=== PATIENT | female | born 1950 | race Caucasian/White ===

== ENCOUNTER 2019-08-08 11:36 | Observation (INO) | payer MEDICARE, OTHER ==
[~2019-08-08] VITALS: Ht 149.9 cm; Wt 47.2 kg
[~2019-08-08 11:36] MED LIST: ASPIR 8181 MG PO; ATORVASTATIN CA80 MG PO; AUGMENTIN 875-1 EACH PO; CHILDREN'S ASPI81 M1 PO; CLINDAMYCIN HC300 MG PO; CLOPIDOGREL75 MG PO; LISINOPRIL5 MG PO; METOPROLOL SUCC25 MG PO; METOPROLOL SUCC50 MG PO; METRONIDAZOLE500 MG PO; PEPTO-BISM262 MG/15 PO; PRAVASTATIN SOD20 MG PO; PROMETHAZINE HC25 M1 PO; SIMETHICONE80 MG PO; SPIRONOLACTONE25 MG PO; VITAMIN D5000 UNIT PO; ZOFRAN ODT4 MG PO
[2019-08-08] MEDS ORDERED: MULTIVITAMINS1 EAC7 PO (12:25)
--- NOTE | 2019-08-08 19:31 | NUR ---
PT ADMIT COMPLETED AT THIS TIME, STARTED IV FLUIDS LR @200MLS/HR. PT GIVEN 2 WARM BLANKETS.
--- NOTE | 2019-08-08 21:10 | NUR ---
ENTERED ROOM TO START COATES AND FIX BEEPING IV PUMP. PT HAD DIARRHEA ACCIDENT, ASSISTED TO CLEAN HER UP AND GET NEW GOWN. PT STATES SHE HAS AN ALLERGY TO IODINE. GOT HER IN BED AND GOT CALLED AWAY ADVISED HER WE WOULD RETURN IN A FEW MINUTES TO FINISH AFTER GETTING CHLORAPREP. CALL LIGHT IS CLOSE.
--- NOTE | 2019-08-08 21:39 | NUR ---
VITALS AND I&OS DONE AND CHARTED. BEDSIDE TABLE AND CALL LIGHT IN REACH. FRESH ICE WATER GIVEN. PT NEEDS NOTHING MORE AT THIS TIME.
--- NOTE | 2019-08-08 21:45 | NUR ---
this rn placed goins - chloraprep used - allergy to iodine. immediate return of alison urine 300ml. pt tollerated well. alert and oriented, forgetfull. tells me same story about family and situations in the same 10 min. pleasant. but unaware of repeat story. occasionally reminds herself. iv fusing at 200 ml an hr until next bag. 02 3l nc - chronic at night. pt reports no food all day in ER - soup provided in rm 119 by this rn. call light in reach - bed alarm on.
--- NOTE | 2019-08-08 23:33 | NUR ---
PT USED THE CALL LIGHT AND ASKED IF SOMEONE COULD HELP HER. I WENT INTO SEE WHAT I COULD DO FOR HER. SHE HAD A LARGE LIQUID BM IN HER BED. I HELPED HER TO THE BSC. DID A COMPLETE BED CHANGE. GOT THE LAUNDRY OUT AND PUT A NEW BAG IN . CLEANED PT WITH WARM WIPES, GOT HER NEW SOCKS AND A NEW GOWN. HELPED HER GET THOSE ON. HELPED HER WITH AN ATTENDS. TWO WARM BLANKETS GIVEN. FLOOR UNDER HER BSC WAS RED WIPED. BEDSIDE TABLE AND CALL LIGHT IN REACH. I WAS HEADING TO THE DOOR SHE SAID "I NEED TO USE THE TOILET AGAIN" I GOT THE BSC SHE HAD NO TIME TO GET TO THE BATHROOM. HELPED HER GET TO THE BSC. REPLACED THE CHUCKS ON THE BED. SHE WILL CALL WHEN SHE IS READY. CALL LIGHT IN REACH.
--- NOTE | 2019-08-08 23:47 | NUR ---
HELPED PT BACK TO BED. BEDSIDE TABLE AND CALL LIGHT IN REACH.
--- NOTE | 2019-08-09 00:30 | NUR ---
ALLERGY CONFIRMED - RED BAND PLACED ON LEFT ARM,
--- NOTE | 2019-08-09 04:38 | NUR ---
pt amb to br on own urgently to have explosive bm. educated to use call light. bed alarm placed due to risk for fall, goins, iv, etc. pt agrees to call. attends changed, bed bath provided, linen changed, i/o and vitals completed at this time. pt only complaint at this time is loose stools. continues to have smokers cough and o2 mask at 5l on.
--- NOTE | 2019-08-09 04:41 | NUR ---
pt w/ urgent loose stool incont. iv fluids @ 125 , chronic 02 titrate due to smoking with smokers cough. slight pleasant confusion, bed alarm on. goins with close watch of i/o for jeovany.
--- NOTE | 2019-08-09 04:46 | NUR ---
WITH THE HELP OF ALEKSANDAR ALEGRIA WE GOT PT CLEANED UP FROM A LIQUID BM. CHANGED GOWN, SOCKS AND ATTEND. RED WIPED ALL OF THE BATHROOM FLOOR. GARBAGES EMPTIED. VITALS AND I&OS DONE AND CHARTED. BED ALARM ON. BEDSIDE TABLE AND CALL LIGHT IN REACH.
--- NOTE | 2019-08-09 05:16 | NUR ---
HELPED PT TO THE BSC AND BACK TO BED. BEDSIDE TABLE AND CALL LIGHT IN REACH. PT NEEDS NOTHING MORE AT THIS TIME.
--- NOTE | 2019-08-09 07:30 | NUR ---
Spoke with Cielo. She states she lives in [place] in a 1 story home without steps. Lives alone and son lives next door. Pt does not use DME. States she is 69, but does not feel it. Wanting to go home today. Encouraged to stay until they determine what is causing her to have n/d.
--- NOTE | 2019-08-09 08:44 | NUR ---
PT UP IN THE CHAIR THIS AM FOR BKF. ATE 1/2 OF HER TOTAL MEAL THEN UP TO THE BATHROOM AMBULATES WELL JUST NEEDS HELP WITH IV POLE AND O2 LINE. PT STATES "I FEEL SO MUCH BETTER TODAY" "I WANT TO GO HOME" EXPLAINED THAT HER LABS ARE BETTER, BUT SHE MAY NEED TO STAY A FEW DAYS TILL HER KIDNEY FUNCTION INPROVES MORE. PT IS OKAY WITH THAT.
[2019-08-09] MEDS ORDERED: ZOFRAN4 MG PO (09:57)
--- NOTE | 2019-08-09 10:14 | NUR ---
MED REC COMPLETE
--- NOTE | 2019-08-09 10:35 | NUR ---
PT SHOWERED AND VOIDED THEN WAS DRESSED IN STREET PERSONAL CLOTHING DUE TO PT IS DISCHARGED TO HOME. DAUGHTER CAME TO PICK PT UP. PT DID NOT WANT O2 TO TRAVEL HOME WITH. IV SITE D'CD. DAUGHTER DROVE PT TO HER HOME.
== END 2019-08-09 10:25 | disposition home or self-care (01) ==
LOC: ED 11:36 → MS 11:38
PROVIDERS: ADMIT Student in an Organized Health Care Education/Training Program
DX: N17.9 Acute kidney failure, unspecified (principal); A08.39 Other viral enteritis; I10 Essential (primary) hypertension; F17.210 Nicotine dependence, cigarettes, uncomplicated; Z88.2 Allergy status to sulfonamides; Z88.5 Allergy status to narcotic agent; Z88.8 Allergy status to other drugs, medicaments and biological substances; Z88.1 Allergy status to other antibiotic agents; Z79.899 Other long term (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 therapy
CPT/HCPCS: 36415; 51702; 71045; 80048; 80053; 81001; 83690; 83735; 85025; 94760; 96361; 96374; 96376; 99285-25; 99406; C9803; G0378; J2405; J7030; J7121; U0002

== ENCOUNTER 2019-10-16 19:45 | Inpatient (IN) | payer MEDICARE, OTHER ==
[~2019-10-16] VITALS: Ht 149.9 cm; Wt 47.8 kg
--- OUTSIDE RECORDS SUMMARY | ~2019-10-16 | XMS | Encounter Summary ---
Demographics + + + | Address | [address] | | | [place] [address] | + + + | Home Phone | | + + + | Preferred Language | Unknown | + + + | Marital Status | | + + + | Nondenominational Affiliation | MET | + + + | Race | White | + + + | Ethnic Group | Not or | + + + Author + + + | Author | [facility] | + + + | Organization | [facility] | + + + | Address | Unknown | + + + | Phone | Unavailable | + + + Support + + +---------+ + | Name | Relationship | Address | Phone | + + +---------+ + | Augusto Bell | ECON | Unknown | | + + +---------+ + | Thaddeus Gerard | ECON | Unknown | | + + +---------+ + | Eric Leung | ECON | Unknown | | + + +---------+ + Care Team Providers + +------+ + | Care Youth Pastor Name | Role | Phone | + +------+ + | Mary Vazquez PA-C | PCP | | + +------+ + Encounter Details +--------+ + + + + | Date | Type | Department | Care Team | Description | +--------+ + + + + | 10/30/ | Telephone | Neurosurgery at | Paramjit Huber MD | | | 2017 | | [facility] [address] | [address] | | | | | [address] [facility] | [place], [place] | | | | | [facility], | [address] | | | | | Building | [phone] | | | | | floor [place], [place] | | | | | | [address] | | | | | | [phone] | | | +--------+ + + + + Social History + + + +--------+------+ | Tobacco Use | Types | Packs/Day | Years | Date | | | | | Used | | + + + +--------+------+ | Current Every Day | Cigarettes | 1 | 46 | | | Smoker | | | | | + + + +--------+------+ + +---+---+---+ | Smokeless Tobacco: | | | | | Never Used | | | | + +---+---+---+ + + | Comments: quit for 1 year | + + + + +---------+ + | Alcohol Use | Drinks/Week | oz/Week | Comments | + + +---------+ + | No | 0 Standard drinks | 0.0 | | | | or equivalent | | | + + +---------+ + + + + | Sex Assigned at | Date Recorded | | | | + + + | Not on file | | + + + documented as of this encounter Functional Status + + + + | Functional Status | Response | Date of Assessment | + + + + | Because of a physical, mental, or emotional | No | 12/05/2017 | | condition, do you have serious difficulty | | | | doing errands alone such as visiting the | | | | doctor? | | | + + + + + + + + | Cognitive Status | Response | Date of Assessment | + + + + | Because of a physical, mental, or emotional | No | 12/05/2017 | | condition, do you have serious difficulty | | | | concentrating, remembering, or making | | | | decisions? (5 years old or older) | | | + + + + documented as of this encounter Miscellaneous Notes Telephone Encounter - Valente Gerardo MA - 12/20/2017 4:50 PM PDTCalled patient to relay Me marty Manning PA-C message: Can you please advise patient to reach out to [facility] which is an [facility] team apart of the infec tious disease department who is helping to manage her outpatient IV antibiotics. This team m ay be able to help set up infusions while she is here in town during her scheduled follow up s. Gave [facility]AT number to patient to call ([phone]). Patient greatly appreciated the call an d will give [facility]AT a call in the morning. Electronically signed by Valente Gerardo MA at 018 4:53 PM PDTTelephone Encounter - Marni Manning PA-C - 12/20/2017 12:27 PM PDTCan you please advise patient to reach out to [facility] which is an [facility] team apart of the infectiou s disease department who is helping to manage her outpatient IV antibiotics. This team may b e able to help set up infusions while she is here in town during her scheduled follow ups. E lectronically signed by Marni Manning PA-C at 12/20/2017 12:28 PM PDTTelephone Encount er - Chioma Aggarwal MA - 12/20/2017 9:03 AM PDTOutgoing call to patient. Spoke with Delmar malik to clarify what she is asking - she states she was put on an injectable antibiotic afte r surgery with Dr. Mayorga / Dr. Huber. Patient states this is an injection and is curious if she can have the injection done here at [facility] instead of in [facility]. She has several appts at [facility] on 12/23 and won't be able to go to the [facility] oni t day. Please advise. Looking at the chart it I believe the patient gets an infusion through a PIC line, not an i njection. elephone Encounter - Perico Hall - 12/20/2017 8:14 AM Renita Maricarmen Bell is s/p CRANIOP LASTY WITH CUSTOM IMPLANT - Right 10/23/2015 Is on an IV everyday at the hospital in [facility] and has questions about her injections for when she sees Cecile. Routing encounter to nursing team to be evaluated and triage Please advise. Date Patient Last Seen: Last Appointment in [facility] was on 11/28/15 at 3:42 pm with Nsg Fellow. Future Appointment Date in Clinic: Next Appointment in [facility] is on 12/23/17 at 12:15 pm with Nsg Skull Base Pa STEFAN Gaines documented in this encoun ter Plan of Treatment Not on filedocumented as of this encounter Visit Diagnoses Not on filedocumented in this encounter"
--- OUTSIDE RECORDS SUMMARY | ~2019-10-16 | XMS | Encounter Summary ---
Demographics + + + | Address | [address] | | | [place] [address] | + + + | Home Phone | | + + + | Preferred Language | Unknown | + + + | Marital Status | | + + + | Mandaen Affiliation | MET | + + + | Race | White | + + + | Ethnic Group | Not or | + + + Author + + + | Author | [facility] | + + + | Organization | [facility] | + + + | Address | [...] Team Providers + +------+ + | Care Proposal Consultant Name | Role | Phone | + +------+ + | Anil Baker DO | PCP | | + +------+ + Encounter Details +--------+ + + + + | Date | Type | Department | Care Team | Description | +--------+ + + + + | 05/23/ | Hospital | Registration [facility]OV | | | | 2015 | Encounter | [address] | | | | | | [place], | | | | | | [place] [address] | | | +--------+ + + + + Social History + + + +--------+ + | Tobacco Use | Types | Packs/Day | Years | Date | | | | | Used | | + + + +--------+ + | Former Smoker | Cigarettes | 1.5 | 39 | Quit: 10/18/2007 | + + + +--------+ + + + +---------+ + | Alcohol Use | Drinks/Week | oz/Week | Comments | + + +---------+ + | No | | | | + + +---------+ + + + + | Sex Assigned at | Date Recorded | | | | + + + | Not on file | | + + + documented as of this encounter Plan of Treatment Not on filedocumented as of this encounter Visit Diagnoses Not on filedocumented in this encounter"
--- OUTSIDE RECORDS SUMMARY | ~2019-10-16 | XMS | Encounter Summary ---
Demographics + + + | Address | [address] | | | [place] [address] | + + + | Home Phone | | + + + | Preferred Language | Unknown | + + + | Marital Status | | + + + | Catholic Affiliation | MET | + + + | Race | White | + + + | Ethnic Group | Not or | + + + Author + + + | Author | [facility] | + + + | Organization | [facility] | + + + | Address | [...] Team Providers + +------+ + | Care Tree Topper Name | Role | Phone | + +------+ + | Anil Baker DO | PCP | | + +------+ + Reason for Visit + + + | Reason | Comments | + + + | Postoperative visit | | + + + AUTH/CERT +--------+--------+ + + + + | Status | Reason | Specialty | Diagnoses / | Referred By | Referred To | | | | | Procedures | Contact | Contact | +--------+--------+ + + + + | Closed | | | | | Kpv 10[address] | | | | | | | Nsrg/Neur/Ot | | | | | | | [address] | | | | | | | [address] | | | | | | | [id number] | | | | | | | [facility] | | | | | | | [place], | | | | | | | [place] [address] | | | | | | | Phone: | | | | | | | [phone] | +--------+--------+ + + + + Encounter Details +--------+---------+ + + + | Date | Type | Department | Care Team | Description | +--------+---------+ + + + | 05/13/ | Office | Neurosurgery at | Paramjit uHber MD | Communicating | | 2009 | Visit | [facility] [address] | [address] | Hydrocephalus | | | | [address] [place] [facility] | [place], [place] | (Primary Dx) | | | | Health and [facility]aling, | [address] | | | | | [facility] | [phone] | | | | | floor [place], [place] | | | | | | [address] | | | | | | [phone] | | | +--------+---------+ + + + Social History + + [...] + + documented as of this encounter Progress Notes Cari Martinez PA - 05/13/2008 1:45 PM PDTThis bisi lady was originally treated for SAH for clipping of aneurysm, she did eventually require placement of AUDIOMETRIC TECHNICIAN shunt. She was seen in the ED for ZULUAGA and the shunt was tapped, she was sent home on abx. The CSF eventually grew ou t MRSA. Pt has ZULUAGA, otherwise feels well. We will admit patient for another tap, likely removal of shunt. 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
--- OUTSIDE RECORDS SUMMARY | ~2019-10-16 | XMS | Encounter Summary ---
Demographics + + + | Address | [address] | | | [place] [address] | + + + | Home Phone | | + + + | Preferred Language | Unknown | + + + | Marital Status | | + + + | Bahai Affiliation | Unknown | + + + | Race | White | + + + | Ethnic Group | Not or | + + + Author + + + | Author | [facility] | | | and [place] | + + + | Organization | [facility] | | | and [place] | + + + | Address | Unknown | + + + | Phone | Unavailable | + + + Support + + +---------+ + | Name | Relationship | Address | Phone | + + +---------+ + | Linda Gerard | ECON | Unknown | | + + +---------+ + | Augusto Bell | ECON | Unknown | | + + +---------+ + Care Team Providers + +------+ + | Care Sewage Plant Operator Name | Role | Phone | + +------+ + | Lance Pandya DO | PCP | | + +------+ + Reason for Visit +--------+--------+ + | Reason | Onset | Comments | | | Date | | +--------+--------+ + | Other | 03/27/ | nocturnal ox | | | 2016 | | +--------+--------+ + Encounter Details +--------+ + + + + | Date | Type | Department | Care Team | Description | +--------+ + + + + | 03/27/ | Telephone | [facility] | Chana Luu, | Noe ([facility]) | | 2015 | | CARDIOLOGY [address] | MD [address] | | | | | [place], | [place] | | | | | [place] [address] | [address] | | | | | [phone] | | | +--------+ + + + + Social History + +-------+ +--------+------+ | Tobacco Use | Types | Packs/Day | Years | Date | | | | | Used | | + +-------+ +--------+------+ | Current Every Day | | 1.5 | 49 | | | Smoker | | | | | + +-------+ +--------+------+ + + + | Sex Assigned at | Date Recorded | | | | + + + | Not on file | | + + + documented as of this encounter Functional Status + + + + | Functional Status | Response | Date of Assessment | + + + + | Are you deaf or do you have serious | No | 12/29/2014 | | difficulty hearing? | | | + + + + | Are you blind or do you have serious | No | 12/29/2014 | | difficulty seeing, even when wearing | | | | glasses? | | | + + + + | Do you have serious difficulty walking or | No | 12/29/2014 | | climbing stairs? (5 years old or older) | | | + + + + | Do you have difficulty dressing or bathing? | No | 12/29/2014 | | (5 years old or older) | | | + + + + | Because of a physical, mental, or emotional | No | 12/29/2014 | | condition, do you have difficulty doing | | | | errands alone such as visiting a doctor's | | | | office or shopping? [15 years old or | | | | older)] | | | + + + + + + + + | Cognitive Status | Response | Date of Assessment | + + + + | Because of a physical, mental, or emotional | No | 12/29/2014 | | condition, do you have serious difficulty | | | | concentrating, remembering, or making | | | | decisions? (5 years old or older) | | | + + + + documented as of this encounter Miscellaneous Notes Telephone Encounter - Lucille Costa, RN - 03/27/2015 9:31 AM PSTReceived a call from Nika Pepper in [place] today to let us know that they went in to visit patient and did a nocturn al oxymetry on her. They report that she desated below 80 for a significant amount of time a nd most likely will need nocturnal oxygen. They report that prior to the oxymetry the patien t asked if it was to qualify her for oxygen and advised them that she would refuse to use ox ygen. They will send us a copy of the nocturnal oxymetry for our records but since we did n ot order the test they were advised to follow up with patient's PCP, Dr Pandya for the orde r for oxygen and to speak with the patient about the need for it. .......................... .................Lucille Costa RN on 03/27/15 at 9:35 documented in this encounter Plan of Treatment Not on filedocumented as of this encounter Visit Diagnoses Not on filedocumented in this encounter"
--- OUTSIDE RECORDS SUMMARY | ~2019-10-16 | XMS | Encounter Summary ---
Demographics + + + | Address | [address] | | | [place] [address] | + + + | Home Phone | | + + + | Preferred Language | Unknown | + + + | Marital Status | | + + + | Taoism Affiliation | MET | + + + | Race | White | + + + | Ethnic Group | Not or | + + + Author + + + | Author | [facility] | + + + | Organization | [facility] | + + + | Address [...] Team Providers + +------+ + | Care Certified Pharmacy Tech Name | Role | Phone | + +------+ + | Mary Vazquez PA-C | PCP | | + +------+ + Reason for Visit Office Visit - E/M Services (Routine) +--------+--------+ + + + + | Status | Reason | Specialty | Diagnoses / | Referred By | Referred To | | | | | Procedures | Contact | Contact | +--------+--------+ + + + + | Closed | | Infectious | Diagnoses | Non-[facility] | Maria Isabel, | | | | Disease | | Epic Dept | Saskia Santos MD | | | | | Osteomyeliti | | [address] | | | | | s, | | [address] | | | | | unspecified | | [address] [place], | | | | | | | [place] | | | | | | | [address] | | | | | | | Phone: | | | | | | | [phone] | | | | | | | Fax: | | | | | | | [phone] | +--------+--------+ + + + + Encounter Details +--------+---------+ + + + | Date | Type | Department | Care Team | Description | +--------+---------+ + + + | 07/28/ | Office | Infectious | Marianna Chandler, | Acute osteomyelitis | | 2019 | Visit | [facility] at [facility] | [address] | of cranium (HCC) | | | | [address] | [address] | (Primary Dx); MSSA | | | | [facility] | [place], [place] | (methicillin | | | | [address], 3rd floor | [phone] | susceptible | | | | [place], [place] | [phone] | Staphylococcus | | | | [address] | | aureus) infection; | | | | [phone] | | Infection due to | | | | | | Staphylococcus | | | | | | epidermidis | +--------+---------+ + + + Social History + + + +--------+------+ | Tobacco Use | Types | Packs/Day | Years | Date | | | | | Used | | + + + +--------+------+ | Current Every Day | Cigarettes | 1 | 50 | | | Smoker | | | | | + + + +--------+------+ + +---+---+---+ | Smokeless Tobacco: | | | | | Never Used | | | | + +---+---+---+ + + | Comments: | + + + + +---------+ + [...] + + documented as of this encounter Last Filed Vital Signs + + + + + | Vital Sign | Reading | Time Taken | Comments | + + + + + | Blood Pressure | 126/69 | 07/28/2018 11:58 AM | | | | | PDT | | + + + + + | Pulse | 77 | 07/28/2018 11:58 AM | | | | | PDT | | + + + + + | Temperature | 36.6 C (97.8 F) | 07/28/2018 11:58 AM | | | | | PDT | | + + + + + | Respiratory Rate | - | - | | + + + + + | Oxygen Saturation | 98% | 07/28/2018 11:58 AM | | | | | PDT | | + + + + + | Inhaled Oxygen | - | - | | | Concentration | | | | + + + + + | Weight | 49.4 kg (108 lb 14.4 | 07/28/2018 11:58 AM | per pt previous apt | | | oz) | PDT | | + + + + + | Height | 149.9 cm (4' 11") | 07/28/2018 11:58 AM | | | | | PDT | | + + + + + | Body Mass Index | 22 | 07/28/2018 11:58 AM | | | | | PDT | | + + + + + documented in this encounter Functional Status + + + + | Functional Status | Response | Date of Assessment | + + + + | Because of a physical, mental, or emotional | No | 07/11/2018 | | condition, do you have serious difficulty | | | | doing errands alone such as visiting the | | | | doctor? | | | + + + + + + + + | Cognitive Status | Response | Date of Assessment | + + + + | Because of a physical, mental, or emotional | No | 07/11/2018 | | condition, do you have serious difficulty | | | | concentrating, remembering, or making | | | | decisions? (5 years old or older) | | | + + + + documented as of this encounter Progress Notes Marianna Chandler MD - 07/28/2018 12:00 PM PDTFormatting of this note might be different fro m the original. INFECTIOUS DISEASES CLINIC: Follow-up Visit Reason for follow-up visit: cranial osteomyelitis, cranial epidural abscess, infected shunt status post removal of the [employer]AL[employer]OVEMENT CONS[employer]ANT shunt with MSSA s/p ceftriaxone 2 g IV every 24 hours for 6 weeks for cranial osteomyelitis starting 12/05/2017 until 01/16/2018 Interval History: This is a 68-year-old female who is following up with infectious disease with regards to he r infection above. She had a subarachnoid hemorrhage status post right pteronial craniotomy for clipping in 2007. This was then complicated by hydrocephalus for which she underwent a QUALITY IMPROVEMENT CONSULTANT shunt mony cement on March 2008 and a synthetic cranioplasty for eroded hardware on October 2015. 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 At that time she was noted to have purulent drainage from the cranioplasty site bryan ng with wound dehiscence. She underwent removal of the cranioplasty and [employer]AL[employer] IM[employer]OVEMENT CONS[employer]ANT shunt as well. Al l the hardware was removed at that time. She was treated with ceftriaxone 2 g IV every 24 ho urs for 6 weeks for cranial osteomyelitis starting 12/05/2017 until 01/16/2018. Prior to sto pping antibiotics a CT of the head was negative for abscess and therefore the antibiotics we re stopped as scheduled on 01/16/2018. She underwent an elective repeat synthetic cranioplasty with neurosurgery on 05/09/2018 with rotational scalp flap with the ENT doctors. She was discharged home the following day [facility] er he presented on 05/14/2018 with enlarging right frontal fluid collection where the skin ov erlying the fluid collection was erythematous and warmer. A CT had showed large extra-axial fluid collection that was hyperdense to CSF. ENT drained the collection, clean the flap and revised/reinforced the wound with nylon sutures. Post surgery, the patient's wound was looki ng good and the erythema had decreased as per documentation. The cultures from the aspirate were negative and so were the blood cultures on 05/14/2018. It did not look like she was plac ed on antibiotics during this admission. She was followed up by neurosurgery on 06/05/2018 and at that time her incision was healing well and did not have any issues with this. There was a small scab over the portion where pr evious wound dehiscence was. The sutures were removed on that day. A month later, on 07/09/2018 the patient called the neurosurgical clinic notifying them that there was a skin defect around the surgical site on the scalp and there was exposed craniop lasty. She was then advised to present to [facility] ED. The patient had denied any fever, chills and other systemic infectious symptoms however upon ED evaluation noted some erythema around the surrounding area but no purulence. The patient was still smoking at that time. Has had a chronic cough which is not worse other than her baseline. The ENT team was consulted and noted to have a 2 X 3 cm area of exposed synthetic craniopla sty with surrounding erythema, alopecia and increased skin vascularity. There was no purulen ce, induration or fluid collection. Her white count was 7.78. As per ENT they would coordina te with the neurosurgeons for removal/explant of the cranioplasty. Neurosurgical evaluation notable for no signs or symptoms of infection, a conservative appr oach with explant followed by delayed cranioplasty plus flap. They may require plastics assi stance. On 07/11/2018 the patient underwent explant of the right Synthes custom cranioplasty and wou nd revision. The synthetic flap was explanted and 1 swab of the epidural space was sent to [facility]. No pathology was sent from the OR. Fungal and AFB cultures also sent. That one bacterial culture grew Staphylococcus epidermidis which was MRSE, fungal and AFB c ultures are negative so far She was discharged from the hospital when cultures are still negative and the Staphylococcu s epidermidis grew on day 5. She was then coordinated to be seen in the infectious disease c linanna today. She is feeling well and not having any issues. She denies any fever, chills, nausea or vom iting. She has been off antibiotics ever since her surgery in 11 July and not had any infect ious issues. There she was seen by the neurosurgeon and pictures were taken which do not lo ok infectious at all. Prior to surgery on 07/11/2018 she was doing well again did not have any infectious symptom s. currently has no pain or tenderness around the surgical site ROS: 14 point review of symptoms conducted. All negative except pertinent positives in sub jective portion of the note above. -Medication Allergies: Allergies Allergen Reactions Acworth Tar Hives Betadine [Povidone-Iodine (With Soap)] Rash Cipro [Ciprofloxacin] Nausea and Vomiting Codeine Hcl Nausea and Vomiting Sulfa (Sulfonamide Antibiotics) Erythema Current Medications: Current Outpatient Medications on File Prior to Visit Medication Sig Dispense Refill acetaminophen 325 mg oral tablet Take 1-2 tablets by mouth every four hours as needed. Indications: Pain (Patient not taking: Reported on 07/28/2018) atorvastatin 80 mg oral tablet Take 80 mg by mouth once daily. ipratropium-albuterol 0.5 mg-3 mg(2.5 mg base)/3 mL inhalation solution for nebulizatio n Inhale 3 mL two times daily. metoprolol succinate 50 mg oral tablet extended release 24 hr Take 50 mg by mouth once daily. nicotine 21 mg/24 hr transdermal patch 24 hour Apply 1 patch to skin once daily. 30 pat ch 1 polyethylene glycol 17 gram oral powder in packet Mix 1 packet and take orally three ti mes daily as needed (1st line - for no BM for 2 days). Indications: constipation spironolactone 25 mg oral tablet Take 25 mg by mouth once daily. No current facility-administered medications on file prior to visit. Antibiotic History: none at this time Physical Exam: VS: Ht 1.499 m (4' 11"), Wt 49.4 kg (108 lb 14.4 oz), BP 126/69, Pulse 77, Temperature 36.6 C (97.8 F), Temperature source Oral, SpO2 98%, BMI 22 kg/(m^2). Facility age limit for growth percentiles is 18 years.Body mass index is 22 kg/m. Gen: Appropriate. NAD HEENT: Conj/Sclera white and quiet. PERRLA. EOMI. OP: Clear. No exudate or lesions noted. Tongue midline. Neck: supple. No lymphadenopathy Respiratory: CTA. No wheezes, rales, rhonci. Cardiovascular: RRR. No murmurs/rubs/gallops. Gastrointestinal/Abd: soft, NT/ND. No HSM Musc/Skel/Extrem: no clubbing/cyanosis/edema Skin: no rash or lesions, reviewed picture of the scalp from neurosurgical evaluation. Pre vious images also reviewed in the office on. Neuro/Psych: Alert and Oriented. Normal affect. Normal mentation. Labs: 07/10/2018 ESR 11, CRP less than 2.9, , Creatinine 0.88, WBC 7.2. CULTURE, WOUND DEEP W/ ANAEROBE [[id number]] (Abnormal) LAB Collected: 07/11/18 1231 Lab Status: Final result Specimen: Swab from Brain Updated: 07/16/18 1258 CULTURE RESULT LAB Staphylococcus epidermidisAbnormal Ref Range: Narrative: Culture Report: Rare Staphylococcus epidermidis No anaerobic organisms isolated Gram Stain: No squamous epithelial cells No polymorphonuclear cells No organisms seen Susceptibility Staphylococcus epidermidis SUSCEPTIBILITY-GRANT Cefazolin R Clindamycin S Erythromycin S Oxacillin R Tetracycline S Trimethoprim/Sulfa S Vancomycin S Impression/Plan: 1) staph epidermidis on swab from recent removal of synthetic cranial flap - 07/11/18 2) history of cranial osteomyelitis, epidural abscess, infected [employer]AL[employer]ANT shunt with MSSA status p ost removal of the synthetic flap, and [employer] shunt as well - 11/2017. Status post completion o f 6 weeks of IV ceftriaxone on 01/16/2018. 3) hx of subarachnoid hemorrhage status post right pteronial craniotomy for clipping in Sep. This was then complicated by hydrocephalus for which she underwent a QUALITY IMPROVEMENT CONSULTANT shunt mony cement on March 2008 and a synthetic cranioplasty for eroded hardware on October 2015. During my evaluation with the patient, I do not see any signs of infection based on symptom s from the patient or chart review prior to her most recent flap removal. Along with that prior to removal of her flap, ESR and CRP were within normal limits. She d id not have any signs of infection including redness, purulent drainage, pain or tenderness, fever, chills, sweating as well. During the surgery the culture was taken from the epidural swab which is above the syntheti c cranium from my discussion with neurosurgical team, in the wound dehiscence was open for at least 2 weeks prior to culture collection. At this time not sure if the staph epidermidis really is a pathogen or a contaminant and gi gia that there was was 1 culture collected we are at a disadvantage of really proving one ov er the other. Having taken a look at her symptoms pre-and post surgery and holding of antibiotics current ly and not behaving infectious is reassuring. I would err on the side of considering this is a contaminant and proceed to further surgica l plans as delineated by neurosurgery and ENT. Recs: 1) No antibiotics for treatment of the Streptococcus epidermidis as there is a high suspic ion that this may be a contaminant Given the above reason. Would recommend to proceed with surgical plans as delineated by neurosurgical and ENT teams . Would recommend vancomycin along with cefazolin as perioperative prophylaxis. Would recommend to use a new flap altogether. Recommendations were conveyed to the neurosurgical Team after discussing the case with vijay fields. The pt is in agreement with the plan. I spent 40 minutes with this patient of which greater than 50% was spent counseling the pa tient regarding the differential diagnosis, diagnostic options, treatment options, and plan going forward. Marianna Chandler MD INFECTIOUS DISEASES AT [facility] [address] [place] [address] Mailcode: [address] [place] [address] [phone] signed by Marianna Chandler MD at 07/28/2018 2:33 PM Anita cintron in this encounter Plan of Treatment Not on filedocumented as of this encounter Visit Diagnoses + + | Diagnosis | + + | Acute osteomyelitis of cranium (HCC) - Primary | + + | MSSA (methicillin susceptible Staphylococcus aureus) infection Methicillin | | susceptible Staphylococcus aureus in conditions classified elsewhere and of unspecified | | site | + + | Infection due to Staphylococcus epidermidis Unspecified staphylococcus infection in | | conditions classified elsewhere and of unspecified site | + + documented in this encounter
--- OUTSIDE RECORDS SUMMARY | ~2019-10-16 | XMS | Encounter Summary ---
Demographics + + + | Address | [address] | | | [place] [address] | + + + | Home Phone | | + + + | Preferred Language | Unknown | + + + | Marital Status | | + + + | Sikh Affiliation | MET | + + + | Race | White | + + + | Ethnic Group | Not or | + + + Author + + + | Author | [facility] | + + + | Organization | [facility] | + + + | Address | Unknown | + + + | Phone | Unavailable | + + + Support + + +---------+ + | Name | Relationship | Address | Phone | + + +---------+ + | Augusto Bell | ECON | Unknown | | + + +---------+ + | Thdadeus Gerard | ECON | Unknown | | + + +---------+ + | Eric Leung | ECON | Unknown | | + + +---------+ + Care Team Providers + +------+ + | Care Boat Hand Name | Role | Phone | + +------+ + | No Pcp Per Patient | PCP | Unavailable | + +------+ + Encounter Details +--------+ + + + + | Date | Type | Department | Care Team | Description | +--------+ + + + + | 01/16/ | Telephone | Neurosurgery at | Paramjit Huber MD | | | 2017 | | [facility] [address] | [address] | | | | | [address] [facility] | [place], [place] | | | | | [facility], | [address] | | | | | [facility] | [phone] | | | | | floor [place], [place] | | | | | | [address] | | | | | | [phone] | | | +--------+ + + + + Social History + + + +--------+ + | Tobacco Use | Types | Packs/Day | Years | Date | | | | | Used | | + + + +--------+ + | Former Smoker | Cigarettes | 1 | [birth year] | Quit: 12/03/2017 | + + + +--------+ + + +---+---+---+ | Smokeless Tobacco: | | [...] this encounter Miscellaneous Notes Telephone Encounter - Nettie Jaramillo PA - 01/17/2018 8:52 AM PSTDocumentation on sepa rate encounter re: plans. Closing current encounter. elephone Encounter - Perico Hall - 01/16/2018 9:21 A Tom Hairston called to check on what's next for her. Let her know that the plan is that Cecile is to review the imaging from 01/09 today, and that we will be getting back to her after th is is done. documented in this encounter Plan of Treatment Not on filedocumented as of this encounter Visit Diagnoses Not on filedocumented in this encounter"
--- OUTSIDE RECORDS SUMMARY | ~2019-10-16 | XMS | Encounter Summary ---
Demographics + + + | Address | [address] | | | [place] [address] | + + + | Home Phone | | + + + | Preferred Language | Unknown | + + + | Marital Status | | + + + | Latter Day Affiliation | Unknown | + + + | Race | White | + + + | Ethnic Group | Not or | + + + Author + + + | Author | [facility] | | | and [place] | + + + | Organization | [facility] | | | and [place] | + + + | Address | Unknown | + + + | Phone | Unavailable | + + + Support + + +---------+ + | Name | Relationship | Address | Phone | + + +---------+ + | Linda Gerard | ECON | Unknown | | + + +---------+ + | Augusto Ray | ECON | Unknown | | + + +---------+ + Care Team Providers + +------+ + | Care Care Asst Name | Role | Phone | + +------+ + PCP | Unavailable | + +------+ + Encounter Details +--------+ + + + + | Date | Type | Department | Care Team | Description | +--------+ + + + + | 07/01/ | Hospital | [facility] | | | | 1991 | Encounter | [facility] | | | | | | CENTER [address] | | | | | | [place] | | | | | | [address] | | | | | | [phone] | | | +--------+ + + + + Social History + +-------+ +--------+------+ | Tobacco Use | Types | Packs/Day | Years | Date | | | | | Used | | + +-------+ +--------+------+ | Never Assessed | | | | | + +-------+ [...]
--- OUTSIDE RECORDS SUMMARY | ~2019-10-16 | XMS | Clinical Summary ---
Demographics + + + | Address | [address] | | | [place] [address] | + + + | Home Phone | | + + + | Preferred Language | Unknown | + + + | Marital Status | | + + + | Latter-Day Affiliation | Unknown | + + + | Race | White | + + + | Ethnic Group | Not or | + + + Author + + + | Author | [facility] | | | and [place] | + + + | Organization | [facility] | | [...] Team Providers + +------+ + | Care Appraisal Manager Name | Role | Phone | + +------+ + | Lance Pandya DO | PCP | | + +------+ + Allergies + + + + + + | Active Allergy | Reactions | Severity | Noted | Comments | | | | | Date | | + + + + + + | Ciprofloxacin | Nausea And Vomiting, | Medium | 12/28/19 | Ended up in the | | | Other (See | | 15 | ER/Pain | | | Comments) | | | | + + + + + + | Codeine | Nausea And Vomiting, | High | 12/28/19 | | | | Hives, Rash | | 15 | | + + + + + + | Slayton | Hives | High | 06/07/19 | | | | | | 15 | | + + + + + + | Slayton Tar | Hives | | 12/28/19 | | | | | | 15 | | + + + + + + | Povidone Iodine | Hives, Other (See | High | 05/29/19 | | | | Comments) | | 15 | | + + + + + + | Sulfa Antibiotics | Diarrhea, Nausea And | Low | 12/28/19 | Other reaction(s): | | | Vomiting | | 15 | Erythema SULFA | | | | | | DRUGS | + + + + + + Medications + + + +---------+------+------+-------+ | Medication | Sig | Dispensed | Refills | Star | End | Statu | | | | | | t | Date | s | | | | | | Date | | | + + + +---------+------+------+-------+ | aspirin 81 mg EC | Take 1 tablet by | 150 | 2 | 07/2 | | Activ | | tablet | mouth Daily. | tablet | | 8/20 | | e | | | | | | 16 | | | + + + +---------+------+------+-------+ | | Take 3 mLs by | | 0 | | | Activ | | albuterol-ipratropiu | nebulization Every 4 | | | | | e | | m (DUONEB) 2.5-0.5 | hours. | | | | | | | mg/3 mL SOLN | | | | | | | + + + +---------+------+------+-------+ | atorvaSTATin | Take 2 tablets by | 180 | 3 | 06/ | | Activ | | (LIPITOR) 20 mg | mouth Daily. | tablet | | 9/20 | | e | | tablet | | | | 17 | | | + + + +---------+------+------+-------+ | acetaminophen | Take 1-2 tablets by | | 0 | 09/0 | | Activ | | (TYLENOL) 325 mg | mouth every four | | | 3/20 | | e | | tablet | hours as needed. | | | 16 | | | | | Indications: Pain | | | | | | + + + +---------+------+------+-------+ | bisacodyl | Unwrap and insert 1 | | 0 | 10/ | | Activ | | (DULCOLAX) 10 mg | suppository rectally | | | 11/10 | | e | | suppository | once daily as | | | 18 | | | | | needed (2nd line for | | | | | | | | no BM in past 2 | | | | | | | | days or if not | | | | | | | | response to MIRALAX | | | | | | | | or if unable to | | | | | | | | tolerate oral). | | | | | | + + + +---------+------+------+-------+ | clopidogrel | Take 1 tablet by | | 0 | 10 | | Activ | | (PLAVIX) 75 mg | mouth once daily. Do | | | 11/10 | | e | | tablet | not restart plavix | | | 18 | | | | | until 2 weeks after | | | | | | | | surgery-12/20 | | | | | | + + + +---------+------+------+-------+ | fentaNYL, PF, 50 | | | 0 | 07/1 | | Activ | | mcg/mL injection | | | | 820 | | e | | | | | | 17 | | | + + + +---------+------+------+-------+ | lisinopril | Take 5 mg by mouth | | 0 | 05/2 | | Activ | | (PRINIVIL, ZESTRIL) | once daily. | | | 320 | | e | | 5 mg tablet | | | | 18 | | | + + + +---------+------+------+-------+ | metoprolol | Take 50 mg by mouth | | 0 | 09/1 | | Activ | | succinate | once daily. | | | 320 | | e | | (TOPROL-XL) 50 mg 24 | | | | 18 | | | | hr tablet | | | | | | | + + + +---------+------+------+-------+ | midazolam (VERSED) | | | 0 | 07/1 | | Activ | | 1 mg/mL SOLN | | | | 8/20 | | e | | | | | | 17 | | | + + + +---------+------+------+-------+ | nicotine | Apply 1 patch to | | 0 | 09/0 | | Activ | | (NICODERM) 21 mg/24 | skin once daily. | | | 3/20 | | e | | hr | | | | 16 | | | + + + +---------+------+------+-------+ | nitroglycerin | Place 0.4 mg under | | 0 | | | Activ | | (NITROSTAT) 0.4 mg | tongue every five | | | | | e | | SL tablet | minutes as needed | | | | | | | | for chest pain. | | | | | | | | Place under tongue | | | | | | | | and allow to | | | | | | | | dissolve. | | | | | | | | Administer every 5 | | | | | | | | minutes, max of 3 | | | | | | | | doses in 15 minutes. | | | | | | + + + +---------+------+------+-------+ | ondansetron | Take 1 tablet by | | 0 | 09/0 | | Activ | | (ZOFRAN) 4 mg tablet | mouth every twelve | | | 3/20 | | e | | | hours as needed. | | | 16 | | | + + + +---------+------+------+-------+ | ondansetron | Take 1 tablet by | | 0 | 10/1 | | Activ | | (ZOFRAN) 8 MG tablet | mouth every twelve | | | 9/20 | | e | | | hours as needed for | | | 18 | | | | | nausea/vomiting. | | | | | | + + + +---------+------+------+-------+ | oxyCODONE | Take 1-3 tablets by | | 0 | 09/0 | | Activ | | (ROXICODONE) 5 mg | mouth every three | | | 3/20 | | e | | tablet | hours as needed for | | | 16 | | | | | moderate pain. | | | | | | + + + +---------+------+------+-------+ | predniSONE | Take one tablet 13 | | 0 | 11/1 | | Activ | | (DELTASONE) 50 mg | hours, 7 hours and | | | 3/20 | | e | | tablet | one hour prior to CT | | | 18 | | | | | scan. Indications: | | | | | | | | hypersensitivity | | | | | | | | drug reaction | | | | | | + + + +---------+------+------+-------+ | polyethylene | Mix 1 packet and | | 0 | 10/1 | | Activ | | glycol (MIRALAX) | take orally three | | | 9/20 | | e | | packet | times daily as | | | 18 | | | | | needed (1st line - | | | | | | | | for no BM for 2 | | | | | | | | days). Indications: | | | | | | | | constipation | | | | | | + + + +---------+------+------+-------+ | scopolamine | Apply 1 patch to | | 0 | 10/2 | | Activ | | (TRANSDERM-SCOP) 1 | skin every | | | 1/20 | | e | | mg/3 days patch | seventy-two hours. | | | 18 | | | | | Indications: | | | | | | | | Prevention of | | | | | | | | Post-Operative | | | | | | | | Nausea and Vomiting | | | | | | + + + +---------+------+------+-------+ | docusate-senna | Take 2 tablets by | | 0 | 09/0 | | Activ | | (SENOKOT-S) 50-8.6 | mouth twice daily as | | | 05/10 | | e | | mg per tablet | needed (take twice | | | 16 | | | | | daily as long as you | | | | | | | | are taking narcotic | | | | | | | | pain medication). | | | | | | + + + +---------+------+------+-------+ | spironolactone | Take 25 mg by mouth | | 0 | 10/23 | | Activ | | (ALDACTONE) 25 mg | once daily. | | | 06/10 | | e | | tablet | | | | 18 | | | + + + +---------+------+------+-------+ | aspirin 81 mg EC | Take 1 tablet by | | 0 | 11/21 | | Activ | | tablet | mouth once daily. Do | | | 11/10 | | e | | | not restart aspirin | | | 18 | | | | | until 2 weeks after | | | | | | | | surgery-07/25/18 | | | | | | + + + +---------+------+------+-------+ | atorvaSTATin | TAKE 1 TABLET BY | | 0 | 11/2 | | Activ | | (LIPITOR) 80 MG | MOUTH AT BEDTIME | | | 0/20 | | e | | tablet | | | | 18 | | | + + + +---------+------+------+-------+ | | Inhale 3 mL two | | 0 | | | Activ | | albuterol-ipratropiu | times daily. | | | | | e | | m 2.5-0.5 mg/3 mL | | | | | | | | SOLN | | | | | | | + + + +---------+------+------+-------+ Active Problems + + + | Problem | Noted Date | + + + | Ischemic dilated cardiomyopathy | 09/26/2018 | + + + + + | Overview: Overview: severe, EF 35-40% by echo 03/02/17, 16% on | | nuc stress test 07/27/16 with extensive scarring in the anterior, | | anterolateral, inferior, inferoseptal, inferolateral and | | anterolateral segments (60% of the myocardial mass) | + + + + + | Tobacco user | 09/26/2018 | + + + + + | Overview: Last Assessment & Plan: | | -smokes 1 PPD x 50 yrs | | -not interested in quitting | + + + + + | Chronic systolic congestive heart failure, NYHA class 2 | 10/14/2016 | + + + | Abnormal nuclear stress test | 09/07/2016 | + + + | Atypical chest pain | 09/07/2016 | + + + | Cardiomyopathy | 09/07/2016 | + + + | Chronic fatigue | 09/07/2016 | + + + | Decreased exercise tolerance | 09/07/2016 | + + + | Coronary artery disease of [place] artery of [place] heart with | 09/07/2016 | | stable angina pectoris | | + + + + + | Overview: Overview: occluded LAD, Anterior SC 12/28/14 > PCI | | with 2 bare metal stents placed | + + + + + | Nocturnal hypoxemia | 08/19/2016 | + + + | Personal history of tobacco use, presenting hazards to health | 08/19/2016 | + + + | Hyperglycemia | 10/23/2015 | + + + + + | Overview: Overview: | | -Hg A1C 5.7 (Pre-diabetes) | | | | Last Assessment & Plan: | | -Goal CBG < 180 | | -Aggressive sliding scale Lispro | + + + + + | CAD (coronary artery disease), [place] coronary artery | 03/06/2015 | + + + | Coronary arteriosclerosis in [place] artery | 03/06/2015 | + + + | ARUN fragoso | 12/29/2014 | + + + | Cough due to bronchospasm | 12/29/2014 | + + + | NSTEMI (non-ST elevated myocardial infarction) | 12/28/2014 | + + + + + | Overview: Cath 12/28/14: 100% LAD - stented with bare metal | | due to history of cerebral aneurysm. Normal LM; normal LCX; | | 20-30% RCA. Elevated EDP. Echo.12/28/14. LVEF.54% | + + + + + | COPD (chronic obstructive pulmonary disease) | 12/28/2014 | + + + | PVD (peripheral vascular disease) | 12/28/2014 | + + + | H/O cerebral aneurysm repair | 12/28/2014 | + + + | Acute bht-CE-ozaxzslsm myocardial infarction | 12/28/2014 | + + + + + | Overview: Overview: Overview: Cath 12/28/14: 100% LAD - | | stented with bare metal due to history of cerebral aneurysm. | | Normal LM; normal LCX; 20-30% RCA. Elevated EDP. Echo.12/28/14. | | LVEF.54%Overview: anterior SC | | Echo.12/28/14. LVEF.54% | |Overview: | |anterior SC | + + + + + | Benign neoplasm of major salivary gland | 06/06/2014 | + + + + + | Overview: Overview: | | ICD10 | + + + + + | Goiter | 06/06/2014 | + + + | Communicating hydrocephalus | 03/08/2008 | + + + + + | Overview: Last Assessment & Plan: -Has R frontal VPS in situ, | | last revised in 2008. -per DARY, no compromise of shunt system | | during the 10/22 cranioplasty surgery. | + + + + + | Chronic pain | 10/24/2007 | + + + | Otitis media | 10/24/2007 | + + + + + | Overview: Overview: | | Keflex preadmit | + + + + + | SAH (subarachnoid hemorrhage) | 10/24/2007 | + + + | Chronic obstructive pulmonary disease | 10/24/2007 | + + + + + | Overview: Overview: | | ICD10 | | | | Last Assessment & Plan: | | -pt takes no regular COPD meds at home. | | -got Albuterol MDI in [place] prior to extubation | | -Uses 2L O2 NC nightly at home. | | -Albuterol MDI 2 puffs q 4 hr PRN for wheeze/SOB | + + + + + | HTN (hypertension) | 10/24/2007 | + + + + + | Overview: Overview: | | ICD10 | | | | Last Assessment & Plan: | | -Goal SBP < 160 | | -continue home metop XL 25 mg daily | + + + +---+ | Smoking addiction | | + +---+ | Smoking addiction | | + +---+ | Smoking addiction | | + +---+ | Smoking addiction | | + +---+ Family History + + +------+ + | Medical History | Relation | Name | Comments | + + +------+ + | Coronary artery | Brother | Eric | | | disease | | | | + + +------+ + | Hypertension | Brother | Eric | | + + +------+ + | Cancer | Brother | Zion | lung cancer | + + +------+ + | Brain cancer | Father | | | + + +------+ + | Dementia | Mother | | | + + +------+ + + +------+ + + | Relation | Name | Status | Comments | + +------+ + + | Brother | Eric | Alive | | + +------+ + + | Danisher | [place] | | lung Ca | | | | (Age | | | | | 73) | | + +------+ + + | Brother | Eric | | | + +------+ + + | | [place] | | | + +------+ + + | Daughter | | Alive | | + +------+ + + | Father | | | brain cancer | | | | (Age | | | | | 71) | | + +------+ + + | Father | | | | + +------+ + + | Mother | | | dementia | | | | (Age | | | | | 92.5) | | + +------+ + + | Mother | | | | + +------+ + + | Son | | Alive | | + +------+ + + Social History + +-------+ +--------+------+ | Tobacco Use | Types | Packs/Day | Years | Date | | | | | Used | | + +-------+ +--------+------+ | Current Every Day | | 1 | 50 | | | Smoker | | | | | + +-------+ +--------+------+ + + | Tobacco Cessation: Ready to Quit: No | + + + + + | Sex Assigned at | Date Recorded | | | | + + + | Not on file | | + + + Last Filed Vital Signs + + + + + | Vital Sign | Reading | Time Taken | Comments | + + + + + | Blood Pressure | 104/64 | 06/14/2017 1:18 PM | | | | | PDT | | + + + + + | Pulse | 68 | 06/14/2017 1:18 PM | | | | | PDT | | + + + + + | Temperature | 36.7 C (98 F) | 10/14/2016 4:42 PM | | | | | PDT | | + + + + + | Respiratory Rate | 16 | 10/14/2016 4:42 PM | | | | | PDT | | + + + + + | Oxygen Saturation | 92% | 12/29/2014 9:12 AM | | | | | PST | | + + + + + | Inhaled Oxygen | - | - | | | Concentration | | | | + + + + + | Weight | 50.8 kg (112 lb 1.6 | 06/14/2017 1:18 PM | | | | oz) | PDT | | + + + + + | Height | 149.9 cm (4' 11") | 06/14/2017 1:18 PM | | | | | PDT | | + + + + + | Body Mass Index | 22.64 | 06/14/2017 1:18 PM | | | | | PDT | | + + + + + Plan of Treatment + + + + + | Health Maintenance | Due Date | Last | Comments | | | | Done | | + + + + + | Hepatitis C | | | | | Screening | 9 | | | + + + + + | Medication | | | | | Management | 9 | | | + + + + + | Vaccine: | | | | | Dtap/Tdap/Td (1 - | 8 | | | | Tdap) | | | | + + + + + | Colorectal Cancer | | | | | Screening | 9 | | | | (Colonoscopy) | | | | + + + + + | Vaccine: Zoster (1 | | | | | of 2) | 9 | | | + + + + + | Breast Cancer | | | | | Screening | 4 | | | + + + + + | Lung Cancer | | | | | Screening | 4 | | | + + + + + | Vaccine: | | | | | Pneumococcal 65+ (1 | 4 | | | | of 1 - PPSV23) | | | | + + + + + | Adult Annual | | | | | Wellness Visit | 5 | | | + + + + + | Med Mgmt: Cr | | 09/16/19 | | | | 8 | 17, | | | | | 06/17/19 | | | | | 16, | | | | | 12/30/19 | | | | | 15, | | | | | Addition | | | | | al | | | | | history | | | | | exists | | + + + + + | Med Mgmt: K | | 09/16/19 | | | | 8 | 17, | | | | | 10/27/19 | | | | | 16, | | | | | 06/17/19 | | | | | 16, | | | | | Addition | | | | | al | | | | | history | | | | | exists | | + + + + + | Med Mgmt: Na | | 09/16/19 | | | | 8 | 17, | | | | | 10/27/19 | | | | | 16, | | | | | 06/17/19 | | | | | 16, | | | | | Addition | | | | | al | | | | | history | | | | | exists | | + + + + + | Vaccine: Influenza | | | | | (#1) | 0 | | | + + + + + Implants + +-------+-------+ +--------+--------+--------+ | Implanted | Type | Area | Manufacture | Device | Shelf | Model | | | | | r | | Expira | / | | | | | | Identi | tion | Serial | | | | | | fier | Date | / Lot | + +-------+-------+ +--------+--------+--------+ | [employer] Rebel | Stent | N/A: | [place] | | 12/21/ | [id number] | | Coronary Stent 2.50mm X | | Heart | SCIENTIFIC | | 2017 | [id number] | | 20mmImplanted: Qty: 1 on | | | MARISOL - BSCI | | | 50 / | | 12/28/2014 by Chana Luu | | | | | | /[id number] | | MD Oksana at [facility] | | | | | | 042 | | [facility] | | | | | | | + +-------+-------+ +--------+--------+--------+ + + | Description:LAD | + + + +-------+-------+ +---+--------+--------+ | [employer] Rebel | Stent | N/A: | [place] | | 08/31/ | [id number] | | Coronary Stent 2.50mm X | | Heart | SCIENTIFIC | | 2017 | [id number] | | 12mmImplanted: Qty: 1 on | | | MARISOL - BSCI | | | 50 / | | 12/28/2014 by Chana Luu | | | | | | /[id number] | | MD Oksana at [facility] | | | | | | 520 | | [facility] | | | | | | | + +-------+-------+ +---+--------+--------+ + + | Description:LAD | + + Results Not on filefrom Last 3 Months Insurance + +--------+ +--------+ +---------+--------+ | Payer | Benefi | Subscriber | Effect | Phone | Address | Type | | | t Plan | ID | chon | | | | | | / | | Dates | | | | | | Group | | | | | | + +--------+ +--------+ +---------+--------+ | MEDICARE | MEDICA | [id number] | | [phone] | | Medica | | | RE | | 014-Pr | 5 | | re | | | PART A | | esent | | | | | | AND B | | | | | | + +--------+ +--------+ +---------+--------+ | AARP | AARP | [id number] | | [phone] | | Indemn | | | MDCR | | 014-Pr | 0 | | ity | | | SUPPL | | esent | | | | + +--------+ +--------+ +---------+--------+ + +--------+ +--------+ + + | Guarantor Name | Accoun | Relation to | Date | Phone | Billing Address | | | t Type | Patient | of | | | | | | | | | | + +--------+ +--------+ + + | Cielo Bell | Person | Self | [birth year] | [address] | | | al/Fam | | 1950 | [phone] | [place] | | | surjit | | | 3 (Home) | [address] | + +--------+ +--------+ + + Advance Directives + + + + + | Type | Date Recorded | Patient | Explanation | | | | Church Business Administrator | | + + + + + | Power of | 12/27/2014 10:56 | | Patient to bring | | Insurance Underwriter Sales | PM | | | + + + + + | Advance | 12/27/2014 10:56 | | | | Directive | PM | | | + + + + + + + + + + | Code Status | Date | Date | Comments | | | Activated | Inactivated | | + + + + + | Full Code | 12/29/2014 | 12/29/2014 | | | | 8:10 AM | 12:16 PM | | + + + + +
--- OUTSIDE RECORDS SUMMARY | ~2019-10-16 | XMS | Encounter Summary ---
Demographics + + + | Address | [address] | | | [place] [address] | + + + | Home Phone | | + + + | Preferred Language | Unknown | + + + | Marital Status | | + + + | Baptism Affiliation | MET | + + + | Race | White | + + + | Ethnic Group | Not or | + + + Author + + + | Organization | Unknown | + + + | Address | [...] Team Providers + +------+ + | Care Top Ironer Name | Role | Phone | + +------+ + | Mary Vazquez PA-C | PCP | | + +------+ + Encounter Details +--------+--------+ + + + | Date | Type | Department | Care Team | Description | +--------+--------+ + + + | 08/03/ | Travel | | | | | 2019 | | | | | +--------+--------+ + + + Social History + + [...]
--- OUTSIDE RECORDS SUMMARY | ~2019-10-16 | XMS | Encounter Summary ---
Demographics + + + | Address | [address] | | | [place] [address] | + + + | Home Phone | | + + + | Preferred Language | Unknown | + + + | Marital Status | | + + + | Yazidism Affiliation | MET | + + + [...] Team Providers + +------+ + | Care Carbon Cutter Name | Role | Phone | + +------+ + | Anil Baker DO | PCP | | + +------+ + Reason for Visit + + + | Reason | Comments | + + + | Postoperative visit | | + + + Encounter Details +--------+---------+ + + + | Date | Type | Department | Care Team | Description | +--------+---------+ + + + | 06/03/ | Office | Neurosurgery at | Paramjit Huber MD | Communicating | | 2008 | Visit | [facility] [address] | [address] | Hydrocephalus; [facility] | | | | [facility] | [place], [place] | (Subarachnoid | | | [facility], | [address] | Hemorrhage) ([facility]) | | | | [facility] | [phone] | | | | | floor [place], [place] | | | | | | [address] | | | | | | [phone] | | | +--------+---------+ + + + [...] this encounter Last Filed Vital Signs + +---------+ + + | Vital Sign | Reading | Time Taken | Comments | + +---------+ + + | Blood Pressure | 133/80 | 06/03/2008 1:18 PM | | | | | PDT | | + +---------+ + + | Pulse | 89 | 06/03/2008 1:18 PM | | | | | PDT | | + +---------+ + + | Temperature | - | - | | + +---------+ + + | Respiratory Rate | - | - | | + +---------+ + + | Oxygen Saturation | - | - | | + +---------+ + + | Inhaled Oxygen | - | - | | | Concentration | | | | + +---------+ + + | Weight | - | - | | + +---------+ + + | Height | - | - | | + +---------+ + + | Body Mass Index | - | - | | + +---------+ + + documented in this encounter Progress Notes Doug De Santiago PA - 06/03/2008 1:32 PM Renita Bell is seen today post rescent RIGHT VPS placement in March. This was placed for communicating HCP after SAH. She was admi tted last month after developing redness about the surgical site. There was concern for inf ection and therefore she was admitted for shunt tap. This CSF culture demosntrated no growt h of bacteria. She was sent home without antibiotic. Today she is seen for follow-up post release. She is with her . She is doing well. No fevers chills or sweats. No head aches of significance. PE: A&OX3. NAD. MOE. EOMI. Facies intact. Tongue ML. FORBES with normal bulk, power and ton e. Gait is intact. Cerebellar function is intact. Incision at scalp and right belly benign. Impression: s/p SAH with post bleed HCP and RIGHT VPS placement. Plan: Increase activity as tolerated. Monitor for signs of infection. RTC on an as needed basis. Tylenol or Ibuprofen for ZULUAGA. documented in this encounter Procedure Notes Other, Faculty - 03/19/2009 12:00 AM PSTAssociated Order(s): RADIOLOGY documented in this encou nter Miscellaneous Notes Scan - Other, Faculty - 04/14/2009 9:08 AM PST can - Barney Liu - 03/19/2009 12:00 AM PST can - Other, Faculty - 03/19/2009 12:00 AM PSTAssociated Order(s): LAB REPORTS documented in this enc nter Plan of Treatment Not on filedocumented as of this encounter Procedures + +--------+ + + + | Procedure Name | Priori | Date/Time | Associated Diagnosis | Comments | | | ty | | | | + +--------+ + + + | LAB REPORTS | | 03/19/2009 | | Results for this | | | | 12:00 AM | | procedure are in the | | | | PST | | results section. | + +--------+ + + + | RADIOLOGY | | 03/19/2009 | | Results for this | | | | 12:00 AM | | procedure are in the | | | | PST | | results section. | + +--------+ + + + documented in this encounter Results LAB REPORTS (03/19/2009 12:00 AM PST) + + + | Narrative | Performed At | + + + | | | + + + + + | Procedure Note | + + | [facility] - 03/19/2009 12:00 AM PST | | | + + RADIOLOGY (03/19/2009 12:00 AM PST) + + + | Narrative | Performed At | + + + | | | + + + + + | Procedure Note | + + | [facility] - 03/19/2009 12:00 AM PST | | | + + documented in this encounter Visit Diagnoses + + | Diagnosis | + + | Communicating hydrocephalus (HCC) Communicating hydrocephalus | + + | SAH (subarachnoid hemorrhage) (HCC) Subarachnoid hemorrhage | + + documented in this encounter"
--- OUTSIDE RECORDS SUMMARY | ~2019-10-16 | XMS | Encounter Summary ---
Demographics + + + | Address | [address] | | | [place] [address] | + + + | Home Phone | | + + + | Preferred Language | Unknown | + + + | Marital Status | | + + + | Anabaptist Affiliation | MET | + + + [...] Team Providers + +------+ + | Care Cut Off Saw Operator Metal Name | Role | Phone | + +------+ + | Mary Vazquez PA-C | PCP | | + +------+ + Encounter Details +--------+--------+ + + + | Date | Type | Department | Care Team | Description | +--------+--------+ + + + | 08/15/ | Travel | | | | | [...] physical, mental, or emotional | No | 08/04/2018 | | condition, do you have serious difficulty | | | | doing errands alone such as visiting the | | | | doctor? | | | + + + + + + + + | Cognitive Status | Response | Date of Assessment | + + + + | Because of a physical, mental, or emotional | No | 08/04/2018 | | condition, do you have serious difficulty | | | | concentrating, remembering, or making | | | | decisions? (5 years old or older) | | | + + + + documented as of this encounter Plan of Treatment Not on filedocumented as of this encounter Visit Diagnoses Not on filedocumented in this encounter"
--- OUTSIDE RECORDS SUMMARY | ~2019-10-16 | XMS | Encounter Summary ---
Demographics + + + | Address | [address] | | | [place] [address] | + + + | Home Phone | | + + + | Preferred Language | Unknown | + + + | Marital Status | | + + + | Druze Affiliation | MET | + + + | Race | White | + + + | Ethnic Group | Not or | + + + Author + + + | Author | [facility] | + + + | Organization | [facility] | + + + | [...] Team Providers + +------+ + | Care Iron Carrier Name | Role | Phone | + +------+ + | No Pcp Per Patient | PCP | Unavailable | + +------+ + Reason for Visit + +--------+ + | Reason | Onset | Comments | | | Date | | + +--------+ + | PICC line | 01/18/ | | | | 2018 | | + +--------+ + Encounter Details +--------+ + + + + | Date | Type | Department | Care Team | Description | +--------+ + + + + | 01/18/ | Telephone | Infectious | Saskia Nicolas MD | [facility] line | | 2018 | | Diseases at [facility] | [address] | | | | | [address] | [facility] | | | | | Loop Physician's | [place], [place] | | | | | [address], [address]rd floor | [address] | | | | | [place], [place] | [phone] | | | | | [address] | | | | | | [phone] | | | +--------+ + + + [...] this encounter Miscellaneous Notes Telephone Encounter - Nataliya Carpenter Ma - 01/18/2018 1:52 PM PSTCalled and spoke with dannielle patterson, who confirmed her PICC line was pulled yesterday, 01/17/18 elephone Encounter - Nataliya Carpenter Ma - 01/18/2018 1: 52 PM PST----- Message from Nataliya Carpenter MA sent at 01/09/2018 2:11 PM PST ----- Regarding: PICC Out SETH's, Please call patient to confirm PICC line was pulled on 01/16 Dr. Nicolas, Please send orders for EOT. EOT is 01/16 documented in this enc nter Plan of Treatment Not on filedocumented as of this encounter Visit Diagnoses Not on filedocumented in this encounter"
--- OUTSIDE RECORDS SUMMARY | ~2019-10-16 | XMS | Encounter Summary ---
Demographics + + + | Address | [address] | | | [place] [address] | + + + | Home Phone [...] Team Providers + +------+ + | Care Weaving Inspector Name | Role | Phone | + +------+ + PCP | Unavailable | + +------+ + Reason for Visit + + + | Reason | Comments | + + + | Hydrocephalus | | + + + Encounter Details +--------+ + + + + | Date | Type | Department | Care Team | Description | +--------+ + + + + | 03/02/ | Emergency | [facility] Emergency | | | | 2008 - | | Department [address] | | | | | [address] | | | | 03/03/ | | [facility] | | | | 2008 | | [place], [place] | | | | | | [address] | | | | | | [phone] | | | +--------+ + + + [...] + + + +---------+ + + | doxycycline | Take 1 Tab by mouth | 14 | 0 | 03/08/19 | | | hyclate 100 mg Oral | two times daily. | | | 09 | 9 | | Tablet | | | | | | + + + +---------+ + + documented as of this encounter ED Notes Benedicto Taylor - 03/02/2008 7:01 PM PSTSent->7NS 8 documented in this encounter Plan of Treatment Not on filedocumented as of this encounter Visit Diagnoses Not on filedocumented in this encounter"
--- OUTSIDE RECORDS SUMMARY | ~2019-10-16 | XMS | Encounter Summary ---
Demographics + + + | Address | [address] | | | [place] [address] | + + + | Home Phone | | + + + | Preferred Language | Unknown | + + + | Marital Status | | + + + | Yazidi Affiliation | Unknown | + + + | Race | White | + + + | Ethnic Group | Not or | + + + Author + + + | Author | [facility] | | | and [place] | + + + | Organization | [facility] | | | and [place] | + [...] Team Providers + +------+ + | Care Oxidized Finish Plater Name | Role | Phone | + +------+ + PCP | Unavailable | + +------+ + Encounter Details +--------+ + + + + | Date | Type | Department | Care Team | Description | +--------+ + + + + | 10/09/ | Hospital | [facility] | | | | 1998 | Encounter | MED CTR XRAY [address] | | | | | | [address] | | | | | | [place] [address] | | | | | | [phone] | | | +--------+ + + + [...]
--- OUTSIDE RECORDS SUMMARY | ~2019-10-16 | XMS | Encounter Summary ---
Demographics + + + | Address | [address] | | | [place] [address] | + + + | Home Phone | | + + + | Preferred Language | Unknown | + + + | Marital Status | | + + + | Episcopalian Affiliation | Unknown | + + + | Race | White | + + + | Ethnic Group | Not or | + + + Author + + + | Author | [facility] | | | and [place] | + + + | Organization | [facility] | | [...] Team Providers + +------+ + | Care Equipment Cleaner And Tester Name | Role | Phone | + +------+ + PCP | Unavailable | + +------+ + Encounter Details +--------+ + + + + | Date | Type | Department | Care Team | Description | +--------+ + + + + | 06/18/ | Hospital | [facility] | | | | 1991 | Encounter | MED CTR XRAY [address] | | | | | | [address] | | | | | | [place] [address] | | | | | | [phone] | | | +--------+ + + + [...]
--- OUTSIDE RECORDS SUMMARY | ~2019-10-16 | XMS | Encounter Summary ---
Demographics + + + | Address | [address] | | | [place] [address] | + + + | Home Phone | | + + + | Preferred Language | Unknown | + + + | Marital Status | | + + + | Druze Affiliation | Unknown | + + + | Race | White | + + + | Ethnic Group | Not or | + + + Author + + + | Author | [facility] | | | and [place] | + + + | Organization | [facility] | | [...] Team Providers + +------+ + | Care Typecasting Machine Operator Name | Role | Phone | [...] [address] | Chana Luu, | Noe ([facility]) | | 2015 | | CARDIOLOGY [address] | MD [address] | | | | | [facility], | [place] | | | | | [place] [address] | [address] | | | | | [phone] | | | +--------+ + + + [...] 03/27/2015 9:31 AM PSTReceived a call from Nkia Pepper in [place] today to let us know that they [...]
--- OUTSIDE RECORDS SUMMARY | ~2019-10-16 | XMS | Encounter Summary ---
Demographics + + + | Address | [address] | | | [place] [address] | + + + | Home Phone [...] Team Providers + +------+ + | Care Door Slinger Name | Role | Phone | + +------+ + | Mary Vazquez PA-C | PCP | | + +------+ + Encounter Details +--------+ + + + + | Date | Type | Department | Care Team | Description | +--------+ + + + + | 01/17/ | Procedure | Diagnostic Imaging | | | | 2017 | Pass | Services at [facility] | | | | | | [address] | | | | | | [facility] | | | | | | [facility], [address] [place] [address] | | | | | | [place], [place] | | | | | | [address] | | | | | | [phone] | | | +--------+ + + + [...]
--- OUTSIDE RECORDS SUMMARY | ~2019-10-16 | XMS | Encounter Summary ---
Demographics + + + | Address | [address] | | | [place] [address] | + + + | Home Phone [...] Author | [facility] | + + + | Organization | [facility] | + + + | Address | [...] Team Providers + +------+ + | Care Wildlife Refuge Manager Name | Role | Phone | + +------+ + | Mary Vazquez PA-C | PCP | | + +------+ + Reason for Visit + + + | Reason | Comments | + + + | Post Op Concern | | + + + AUTH/CERT +--------+--------+ [...] | +--------+ + + + + | 07/10/ | Hospital | [facility] [address] | Machelle Gaines MD | | | 2019 - | Encounter | [address] | [address] | | | | | [id number] [facility] | [facility], | | | 07/13/ | | [facility], | [place] [address] | | | 2019 | | [place] [address] | [phone] | | | | | [phone] | | | | | | | Adolfo Urbina MD | | | | | | [address] | | | | | | [place], [place] | | | | | | [address] | | | | | | [phone] | | | | | | | [...] | | + +---+---+---+ + + | Tobacco Cessation: Ready to Quit: Yes; Counseling Given: No | | Comments: | + + + + [...] + + + | Blood Pressure | 109/50 | 07/13/2018 3:45 PM | | | | | PDT | | + + + + + | Pulse | 88 | 07/13/2018 3:45 PM | | | | | PDT | | + + + + + | Temperature | 36.6 C (97.9 F) | 07/13/2018 3:45 PM | | | | | PDT | | + + + + + | Respiratory Rate | 16 | 07/13/2018 3:45 PM | | | | | PDT | | + + + + + | Oxygen Saturation | 91% | 07/13/2018 3:45 PM | | | | | PDT | | + + + + + | Inhaled Oxygen | - | - | | | Concentration | | | | + + + + + | Weight | 47.6 kg (105 lb) | 07/10/2018 9:21 AM | | | | | PDT | | + + + + + | Height | 149.9 cm (4' 11") | 07/10/2018 9:21 AM | | | | | PDT | | + + + + + | Body Mass Index | 21.21 | 07/10/2018 9:21 AM | | | | | PDT [...] + + documented as of this encounter Discharge Summaries Marni Manning PA-C - 07/13/2018 10:52 AM PDTFormatting of this note might be differe nt from the original. NEUROSURGERY DISCHARGE SUMMARY: Patient: Gloria Bell Admission Date: 07/10/2018 Discharge Date: 07/13/2018 Attending Physician: Adolfo Urbina MD PCP: Mary Vazquez PA-C Service: [facility] Neurosurgery Diagnoses Principal Final Diagnosis: Wound dehiscence. History of right frontotemporal acquired skull defect, status post Synthes custom craniopla sty with exposed cranioplasty. Additional Diagnoses: Nicotine dependence Procedures 07/11 1. Explant of right Synthes custom cranioplasty. 2. Wound revision. 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 Cultures were obtained intra-op which have remained unremarkable at time of discharge. Patient remains afebrile with no evidence of infection. Patient felt r mis to discharge on 07/13/18. Diet Regular Regular diet- There are no restrictions to your diet. You may eat or drink whatever you pr efer, though healthy food choices are recommended. Activity 1)Avoid heavy lifting. Do not lift greater than 10lbs. 2)Avoid repetitive bending and all strenuous activity until further notice. 3)Avoid activities that can precipitate head trauma. 4)Must wear helmet when out of bed at ALL times 5)No driving while taking oral narcotics/pain medications. Condition on Discharge Good PCP:Mary Vazquez PA-C When: Please follow-up with your primary care physician as soon as possible to review new medications and recent interventions Call: Please call and ask for the Neurosurgery Resident on-call if you have any of the following: - Difficulty breathing or unusual shortness of breath - Excessive bleeding, drainage at the operative site - Fevers, chills, increased pain that is not relieved by pain medications - Persistent nausea or vomiting - Severe headaches, dizziness, or visual changes Medication List START taking these medications nicotine 21 mg/24 hr Pt24 Commonly known as: NICOTROL Apply 1 patch to skin once daily. Start taking on: 07/14/2018 CHANGE how you take these medications aspirin EC 81 mg Tbec Take 1 tablet by mouth once daily. Do not restart aspirin until 2 weeks after surgery-07/25 Start taking on: 07/25/2018 What changed: additional instructions These instructions start on 07/25/2018. If you are unsure what to do until then, ask your doctor or other care provider. CONTINUE taking these medications acetaminophen 325 mg Tab Commonly known as: TYLENOL Take 1-2 tablets by mouth every four hours as needed. Indications: Pain atorvastatin 80 mg Tab Commonly known as: LIPITOR Take 80 mg by mouth once daily. ipratropium-albuterol 0.5 mg-3 mg(2.5 mg base)/3 mL Nebu Commonly known as: DUO-NEB Inhale 3 mL two times daily. metoprolol succinate 50 mg Tb24 Commonly known as: TOPROL-XL Take 50 mg by mouth once daily. nitroglycerin 0.4 mg Subl Commonly known as: NITROSTAT Place 0.4 mg under tongue every five minutes as needed for chest pain. Place under tongue a nd allow to dissolve. Administer every 5 minutes, max of 3 doses in 15 minutes. polyethylene glycol 17 gram Pwpk Commonly known as: MIRALAX Mix 1 packet and take orally three times daily as needed (1st line - for no BM for 2 days). Indications: constipation spironolactone 25 mg Tab Commonly known as: ALDACTONE Take 25 mg by mouth once daily. STOP taking these medications lisinopril 5 mg Tab Commonly known as: PRINIVIL Wound Care: Special Instructions/Tests: -Discussed nicotine cessation w patient -ENT to remove nylons, she has f/u scheduled w them on 07/31 -At time of discharge intra op cx w rare staph epidermis Condition On Discharge: Good Vital Signs at discharge as appropriate: BP: 126/60 (07/13/18915) Pulse: 86 (07/13/18915) Resp: 16 (915) Weight: 47.6 kg (105 lb) (07/10/18920) Alert, conversant, answering questions approprietly No evidence of aphasia or dysarthria Following commands briskly PERRL, EOMI FS, TML, V1-V3 Sensory intact Symmetric shoulder shrug BUE/BLE 5/5 equal b/l No Pronator Drift SILT Incision cranial incision closed w absorbable sutures-intact, scant bloody drainage from di stal incision. Cranial defect closed w nylons c/d/i no erythema, swelling, drainage. Discharge Patient To: Home Does patient have a planned readmission: No Discharge Summary Completed?: Yes. 07/13/2018 Discharging Provider: Marni Manning PA-C Date Completed: 07/13/2018 Time Completed: 10:52 AM Discharging Attending: MD Marni Beck PA-C [facility] [address] [facility] [address] [place] [address] documented in t his encounter Medications at Time of Discharge + + + +---------+ + + | Medication | Sig | Dispensed | Refills | Start | End Date | | | | | | Date | | + + + +---------+ + + | atorvastatin 80 mg | Take 80 mg by mouth | | 0 | | | | oral tablet | once daily. | | | | | + + + +---------+ + + | metoprolol | Take 50 mg by mouth | | 0 | 12/02/19 | | | succinate 50 mg oral | once daily. | | | 18 | | | tablet extended | | | | | | | release 24 hr | | | | | | + + + +---------+ + + | spironolactone 25 | Take 25 mg by mouth | | 0 | 11/15/19 | | | mg oral tablet | once daily. | | | 18 | | + + + +---------+ + + documented as of this encounter Progress Notes Angie French PA-C - 07/13/2018 8:42 AM PDT DOS: 07/13/2018 Head and Neck Surgery Inpatient Daily Progress Note: Primary Care Provider: Mary Vazquez PA-C Admission Date: 07/10/2018 GLORIA BELL, [id number] Hospital Day #3 PROCEDURES: Dr. White (ENT) 07/11/2018 Removal of cranioplasty by Neurosurgical service, elevation of an anterior flap approximate ly 25 x 8 cm undermining with a galeatomy of the posterior incision approximately 25 x 3 x 5 cm and then advancement and closure of the craniotomy site. SUBJECTIVE INTERVAL EVENTS: No acute events Surgical site wound healing well OBJECTIVE Last 24 hour min/max Temp: 36.9 C (98.4 F) Temp Min: 36.6 C (97.9 F) Max: 37 C (98.6 F) Pulse: 78 Pulse Min: 78 Max: 93 Resp: 16 Resp Min: 16 Max: 18 BP: 115/61 BP Min: 104/58 Max: 115/61 SpO2: 91 % SpO2 Min: 90 % Max: 97 % Body mass index is 21.21 kg/m. Intake/Output Summary (Last 24 hours) at 07/13/2018 0842 Last data filed at 07/12/2018 1620 Gross per 24 hour Intake 400 ml Output Net 400 ml PHYSICAL EXAM: General: Alert, comfortable, NAD Scalp: incision c/d/i, no swelling LABS: Recent Labs 07/10/18174607/11/18 1423 NA 137 -- K 4.2 -- CL 105 -- BICARB 28 -- BUN 16 -- CR 0.88 -- GLU 90 117* CA 8.7 -- No results for input(s): MG in the last 168 hours. 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 She de veloped an infection of her cranioplasty with associated epidural abscess requiring explanta tion in 12/08 and most recently underwent a repeat synthetic cranioplasty with the Neurosurg shanell team 05/09, at which time Dr White/Terence performed a rotation advancement scalp flap for coverage of new implant further complicated by exposed cranioplasty requiring a take back to the OR on 07/11 for Removal of cranioplasty by Neurosurgical service, elevation of an anteri or flap approximately 25 x 8 cm undermining with a galeatomy of the posterior incision appro ximately 25 x 3 x 5 cm and then advancement and closure of the craniotomy site. Doing well p ost op -Continue excellent care per NSG, plan for dc today -ENT team will continue to follow along with you -Follow up with Dr. Garcia has been scheduled Future Appointments Date Time Provider Department Center 07/31/2018 12:45 PM Ata White MD [facility] Otolaryngolo Code Status: FULL ANGIE FRENCH PA-C Otolaryngology-Head and Neck Surgery [facility] Pager [phone] Marni Gallardo PA-C - 07/12/2018 1:11 PM PDTFormatting of this note might be different from the alondraa l. INPATIENT PROGRESS NOTE Hospital Day:2 Author; Marni Manning PA-C Attending Physician: Adolfo Urbina MD Procedure 07/11 1. Explant of right Synthes custom cranioplasty. 2. Wound revision. Interval Hx: No acute events overnight S/p the above procedure VSS, AF, no leukocytosis Intra op cx in process-prelim w no organisms seen Patient Symptoms: Patient wo particular complaints Physical Exam: Last Vitals: BP 106/52 (BP Location: Left upper arm, Patient Position: Lying on back) | Pu lse 93 | Temp 36.7 C (98.1 F) (Oral) | Resp 16 | Ht 1.499 m (4' 11") | Wt 47.6 kg (1 05 lb) | SpO2 91% | BMI 21.21 kg/m | BSA 1.41 m O2 Delivery Device: None (room air) (07/12/18 1208) 24 Hour Vital Min/Max: Systolic (24hrs), Av , Min:101 , Max:162 Pulse Min: 68 Max: 93 Temp Min: 36.1 C (97 F) Max: 36.8 C (98.2 F) Resp Min: 14 Max: 23 SpO2 Min: 89 % Max: 97 % Intake/Output Summary (Last 24 hours) at 07/12/2018 1312 Last data filed at 07/12/2018 0930 Gross per 24 hour Intake 1135 ml Output Net 1135 ml Physical Exam: Alert, conversant, answering questions approprietly No evidence of aphasia or dysarthria Following commands briskly PERRL, EOMI FS, TML, V1-V3 Sensory intact Symmetric shoulder shrug BUE/BLE 5/5 equal b/l No Pronator Drift No [id number] dysmetria nor ataxia SILT Incision c/d/i. Nylons in place Labs: CBC with diff last 72 hours (or 3 results) - Refreshable Recent Labs 07/10/18 1747 WBC 7.32 HB 13.6 HCT 40.7 PLT 253 Chemistries: Last 72 Hours (or 3 results) - Refreshable Recent Labs 07/10/18 1747 07/11/18 1423 NA 137 -- K 4.2 -- CL 105 -- BICARB 28 -- BUN 16 -- EGFRAFRICAN >60 -- CR 0.88 -- GLU 90 117* CA 8.7 -- Current Medications: acetaminophen (TYLENOL) tablet 650 mg, 650 mg, oral, Q4H PRN atorvastatin (LIPITOR) tablet 80 mg, 80 mg, oral, DAILY bisacodyl (DULCOLAX) suppository 10 mg, 10 mg, rectal, DAILY PRN ipratropium-albuterol (DUO-NEB) nebulizer solution 3 mL, 3 mL, inhalation, Q4H PRN metoprolol succinate (TOPROL-XL) tablet 50 mg, 50 mg, oral, DAILY nicotine (NICOTROL) 21 mg/24 hr patch 1 patch, 1 patch, transdermal, DAILY nicotine polacrilex (COMMIT) lozenge 4 mg, 4 mg, oral, Q1H PRN pneumococcal (13-ni) conjugate vaccine (PREVNAR 13) injection 0.5 mL, 0.5 mL, intramuscula r, ONE TIME IN THE MORNING polyethylene glycol (MIRALAX) packet 34 g, 34 g, oral, TID PRN senna-docusate (SENOKOT S) 8.6-50 mg 1 tablet, 1 tablet, oral, BID spironolactone (ALDACTONE) tablet 25 mg, 25 mg, oral, DAILY IMAGING: No new imaging ASSESSMENT: Gloria Bell is a 68 y.o. female with the following neurosurgical history: 10/18/2007 R pterional crani for clipping of ruptured Acomm aneurysm 03/03/2008 L neck incision and drainage 03/03/2008 HVLP 04/12/2008 R VPS medium pressure 10/23/2015 R synthetic cranioplasty 12/05/2017 explant of R VPS and explant of synthetic cranioplasty 05/08/18 RIGHT frontotemporal synthes cranioplasty 05/14/18 Repair of scalp defect at bedside (suture) She presents to [facility] with wound dehiscence and exposed hardware now s/p explant of craniopl asty and primary wound closure by Dr White on 07/11 w intra op cx w no organisms seen, recovery appropriately. PLAN: Neurological: -Continue acute care therapies -monitor for acute neurologic changes -Acute pain control -Routine Crani care -OK to shower POD 3 Disposition:Anticpate discharge home in next 24-28hr. Marni Manning PA-C Neurological Surgery Pg [phone] Steven Piña PA-C - 07/12/2018 8:07 AM PDTFormatting of this note might be different from the reba naik. DOS: 07/12/2018 Head and Neck Surgery Inpatient Daily Progress Note: Primary Care Provider: Mary Vazquez PA-C Admission Date: 07/10/2018 GLORIA BELL, [id number] Hospital Day #2 PROCEDURES: Dr. White (ENT) 07/11/2018 Removal of cranioplasty by Neurosurgical service, elevation of an anterior flap approximate ly 25 x 8 cm undermining with a galeatomy of the posterior incision approximately 25 x 3 x 5 cm and then advancement and closure of the craniotomy site. SUBJECTIVE INTERVAL EVENTS: No acute events Surgical site wound healing well OBJECTIVE Last 24 hour min/max Temp: 36.8 C (98.2 F) Temp Min: 36.1 C (97 F) Max: 36.9 C (98.4 F) Pulse: 77 Pulse Min: 66 Max: 90 Resp: 20 Resp Min: 14 Max: 23 BP: 115/52 BP Min: 99/64 Max: 162/64 SpO2: 91 % SpO2 Min: 89 % Max: 95 % Body mass index is 21.21 kg/m. Intake/Output Summary (Last 24 hours) at 07/12/2018 0807 Last data filed at 07/12/2018 0116 Gross per 24 hour Intake 1030 ml Output Net 1030 ml PHYSICAL EXAM: General: Alert, comfortable, NAD Scalp: incision c/d/i, no swelling LABS: Recent Labs 07/10/18 1747 07/11/18 1423 NA 137 -- K 4.2 -- CL 105 -- BICARB 28 -- BUN 16 -- CR 0.88 -- GLU 90 117* CA 8.7 -- No results for input(s): MG in the last 168 hours. 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 She de veloped an infection of her cranioplasty with associated epidural abscess requiring explanta tion in 12/08 and most recently underwent a repeat synthetic cranioplasty with the Neurosurg shanell team 05/09, at which time Dr White/Terence performed a rotation advancement scalp flap for coverage of new implant further complicated by exposed cranioplasty requiring a take back to the OR on 07/11 for Removal of cranioplasty by Neurosurgical service, elevation of an anteri or flap approximately 25 x 8 cm undermining with a galeatomy of the posterior incision appro ximately 25 x 3 x 5 cm and then advancement and closure of the craniotomy site. Doing well p ost op -Continue excellent care per NSG -ENT team will continue to follow along with you -Follow up with Dr. Garcia has been scheduled Code Status: FULL ANGIE FRENCH PA-C Otolaryngology-Head and Neck Surgery [facility] Pager [phone] ossVickie MD, MPH - 07/11/2018 3:52 PM PDT NEUROSURGERY POST-OP CHECK Author: Vickie Estrada MD,MPH Date: 07/11/2018 Attending Physician: Adolfo Urbina MD STATUS POST: Right cranioplasty explant Patient examined in PACU VITAL SIGNS: BP 101/51 | Pulse 68 | Temp 36.1 C (97 F) | Resp 19 | Ht 1.499 m (4' 11") | Wt 47. 6 kg (105 lb) | SpO2 91% | BMI 21.21 kg/m | BSA 1.41 m PHYSICAL EXAM FINDINGS: Arouses to voice, oriented to self, time, place, situation Following commands briskly Speech fluent PERRL EOMI Face symmetric No pronator drift RUE: 5/5 D/B/T/HG LUE: 5/5 D/B/T/HG RLE: 5/5 HF/KE/DF/PF LLE: 5/5 HF/KE/DF/PF Incision covered with dressing, clean/dry/intact without strikethrough PLAN: Neurologic status stable. - Follow-up OR cultures - To cooper from PACU Please contact the Neurosurgery resident on-call pager [phone] with questions or concerns. Vickie Estrada M.D., M.P.H. R2 Resident Physician Neurological Surgery Pager: [phone] signed by Vickie Estrada MD,MPH at 07/11/2018 3:53 PM PDTWaSaniya michael MD - 07/11/2018 2:14 PM PDTClinic Date:07/11/2018 Gloria has had exposure of her cranioplasty plate. She was seen and discussed with Neurosu clarisa. The closure had been pretty good at the time, but she has broken down in the middle of the forehead flap. I think that this is secondary to her poor skin quality and the thinn ess. We have arranged to take the implant out, will close the wound primarily and we will c ome back another day with a free tissue transfer. She will need a lat flap. I think that w e just need to remove all of the thin tissue that is going to be over top of the implant. Ata White MD MW/MODL /[id number] signed by Ata White MD at 07/11/2018 3:28 PM PDTAngie Moreno PA-C - 07/11/2018 9:30 AM PDT DOS: 07/11/2018 Head and Neck Surgery Inpatient Daily Progress Note: Primary Care Provider: Mary Vazquez PA-C Admission Date: 07/10/2018 GLORIA MARSHA ONOFRE, [id number] Hospital Day #1 SUBJECTIVE INTERVAL EVENTS: To OR today OBJECTIVE Last 24 hour min/max Temp: 36.9 C (98.4 F) Temp Min: 36.4 C (97.5 F) Max: 36.9 C (98.4 F) Pulse: 66 Pulse Min: 66 Max: 91 Resp: 18 Resp Min: 14 Max: 27 BP: 108/56 BP Min: 92/52 Max: 119/69 SpO2: 90 % SpO2 Min: 87 % Max: 100 % Body mass index is 21.21 kg/m. Intake/Output Summary (Last 24 hours) at 07/11/2018 0930 Last data filed at 07/11/2018 0000 Gross per 24 hour Intake 610 ml Output Net 610 ml PHYSICAL EXAM: Unchanged General: Alert, comfortable, NAD Head: 2x3cm area of exposed synthetic cranioplasty with surrounding erythema, alopecia and Increased skin vascularity. 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 She de veloped an infection of her cranioplasty with associated epidural abscess requiring explanta tion in 12/08 and most recently underwent a repeat synthetic cranioplasty with the Neurosurg shanell team 05/09, at which time Dr White/Terence performed a rotation advancement scalp flap for coverage of new implant. She presents today with dehiscence of her cranioplasty, no apparent signs of infection. -To OR today, consented and on the OR schedule Code Status: FULL ANGIE FRENCH PA-C Otolaryngology-Head and Neck Surgery [facility] Pager [phone] Nettie Knowles PA - 07/11/2018 6:39 AM PDT INPATIENT PROGRESS NOTE Hospital Day:1 Author; ANSON MULLINS Attending Physician: Adolfo Urbina MD Interval Hx: -Pt admitted from ED yesterday due to wound dehiscence -Afebrile; no leukocytosis -Pt denies pain/discomfort over surgical wound Physical Exam: Last Vitals: BP 105/58 (BP Location: Left upper arm, Patient Position: Lying on back) | Pu lse 70 | Temp 36.7 C (98.1 F) (Oral) | Resp 20 | Ht 1.499 m (4' 11") | Wt 47.6 kg (1 05 lb) | SpO2 98% | BMI 21.21 kg/m | BSA 1.41 m O2 Delivery Device: Nasal cannula (07/11/18 0525) 24 Hour Vital Min/Max: Systolic (24hrs), Av , Min:92 , Max:119 Diastolic (24hrs), Av, Min:49, Max:69Pulse Min: 67 Max: 91 Temp Min: 36.4 C (97.5 F) Max: 36.9 C (98.4 F) Resp Min: 14 Max: 27 SpO2 Min: 87 % Max: 100 % Intake/Output Summary (Last 24 hours) at 07/11/2018 0639 Last data filed at 07/11/2018 0000 Gross per 24 hour Intake 610 ml Output Net 610 ml Physical Exam: General: Awake, alert HEENT: gaze conjugate, EOM's intact, faces symmetric Language: fluent and articulate without evidence of aphasia or dysarthria Motor: FORBES's Derm: LEFT cranial wound w/ approx 3 cm wound dehiscence with exposed cranioplasty (see lizbeth to in chart) Labs: CBC with diff last 72 hours (or 3 results) Recent Labs 07/10/18 1747 WBC 7.32 HB 13.6 HCT 40.7 PLT 253 Chemistries: Last 72 Hours (or 3 results): Recent Labs 07/10/18 1747 NA 137 K 4.2 CL 105 BICARB 28 BUN 16 EGFRAFRICAN >60 CR 0.88 GLU 90 CA 8.7 CULTURE RESULT Date Value Ref Range Status 05/13/2008 Corrected CSF Culture Source...............: Cerebrospinal Fluid RLB Gram Stain...........: Gram smear performed at [facility]. Culture: Final Report: No growth after 3 days. Final Report 04/29/2008 Corrected CSF Culture Source...............: Cerebrospinal Fluid RLB Gram Stain...........: Gram smear performed at [facility]. Culture: Rare Methicillin resistant Staphylococcus aureus Final ID MRSA Cefazolin R Clindamycin S Erythromycin R Oxacillin R Penicillin R Tetracycline S Trimeth/Sulfa S Vancomycin S Final Report Comment: Test performed at [facility]. 03/07/2008 Corrected CSF Culture Source...............: Cerebrospinal Fluid RLB Gram Stain...........: Gram smear performed at [facility]. Culture: Final Report: No growth after 3 days. Final Report Comment: Test performed at [facility]. 03/03/2008 Corrected CSF Culture Source...............: Cerebrospinal Fluid RLB Gram Stain...........: Gram smear performed at [facility]. Culture: Final Report: No growth after 3 days. Final Report Comment: Test performed at [facility]. 03/03/2008 Corrected Wound Culture Source...............: Skin Abscess RLB Gram Stain...........: Rare Squamous epithelial cells Rare PMN's Rare Gram positive cocci Culture: 1+ Methicillin resistant Staphylococcus aureus Final ID MRSA Cefazolin R Clindamycin S Erythromycin R Oxacillin R Penicillin R Tetracycline S Trimeth/Sulfa S Vancomycin S Final Report Resulted: 03/05/08 RLB ([facility]) [facility] [address] [place] [address] Comment: Test performed at [facility]. CULTURE RESULT Date Value Ref Range Status 05/14/2018 Final Final Report:No Bacteria or Yeast isolated at 5 days. 05/14/2018 Final Final Report:No Bacteria or Yeast isolated at 5 days. 12/05/2017 Final Staphylococcus aureus (A) 12/05/2017 Final Staphylococcus aureus (A) 12/05/2017 Final Staphylococcus aureus (A) 12/05/2017 Final Staphylococcus aureus (A) 12/03/2017 Final Final Report:No Bacteria or Yeast isolated at 5 days. Current Medications: acetaminophen (TYLENOL) tablet 650 mg, 650 mg, oral, Q4H PRN atorvastatin (LIPITOR) tablet 80 mg, 80 mg, oral, DAILY bisacodyl (DULCOLAX) suppository 10 mg, 10 mg, rectal, DAILY PRN ipratropium-albuterol (DUO-NEB) nebulizer solution 3 mL, 3 mL, inhalation, BID metoprolol succinate (TOPROL-XL) tablet 50 mg, 50 mg, oral, DAILY nicotine (NICOTROL) 21 mg/24 hr patch 1 patch, 1 patch, transdermal, DAILY nicotine polacrilex (COMMIT) lozenge 4 mg, 4 mg, oral, Q1H PRN polyethylene glycol (MIRALAX) packet 34 g, 34 g, oral, TID PRN senna-docusate (SENOKOT S) 8.6-50 mg 1 tablet, 1 tablet, oral, BID spironolactone (ALDACTONE) tablet 25 mg, 25 mg, oral, DAILY ASSESSMENT: Gloria Bell is a 68 y.o. 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 Plan for surgery today vi a explant of cranioplasty and primary wound closure by Dr White. PLAN: OR today for cranioplasty explant and primary wound closure. Anticipate return to 10K post op. NPO. Resume lisinopril post op. Continue atorvastatin, spironolactone, metoprolol. Nicotine patch. Post operative wound care per ENT. ANSON MULLINS [facility] [address] [address]/[place] [address] Doug Dhaliwal M D - 07/10/2018 3:38 PM PDTNeurosurgery Preoperative Note Planned procedure: Right cranioplasty explant, complex wound closure Date of procedure: 07/11/2018 Booked? Yes Consented? Yes Marked? Yes NPO time: midnight 07/10/2018 Labs/Studies Hct: 40.7 Plt: 253 WBC: 7 Na: 137 K: 4.2 Type and Screen obtained? Yes - today INR: 1.01 If over 50, EKG obtained this admission (Yes/No/NA)? No Medications If on Lovenox, stopped the day prior to surgery (Yes/No/NA)? N/A On ASA or other antiplatelet agent? Lisinopril, held. On ANITA inhibitor or ARB? No Please contact the Neurosurgery resident on-call pager [phone] with questions or concerns. Vickie Estrada M.D., M.P.H. R2 Resident Physician Neurological Surgery Pager: [phone] signed by Doug Aponte MD at 07/10/2018 8:01 PM PDTdocutrina cintron in this encounter Procedure Notes Adolfo Urbina MD - 07/11/2018 3:24 PM PDTAssociated Order(s): OPERATION RECORDDate of Serv ice: 07/11/2018 Attending Surgeon: Adolfo Urbina MD Tailor'S Aide(s): Kari Cavazos MD Preoperative Diagnoses: 1. Wound dehiscence. 2. History of right frontotemporal acquired skull defect, status post Synthes custom cranio plasty with exposed cranioplasty. Postoperative Diagnoses: 1. Wound dehiscence. 2. History of right frontotemporal acquired skull defect, status post Synthes custom cranio plasty with exposed cranioplasty. Procedure Performed: 1. Explant of right Synthes custom cranioplasty. 2. Wound revision. Anesthesia: General. Estimated Blood Loss: 10 mL for our portion. Graft Implant: Cranioplasty flap was explanted. Specimens: One swab on the epidural space sent for culture. Complications: None. Findings: Cranioplasty explanted without issue. Fluids: EBL 10 mL. Disposition: PACU then acute care. Benavides was never replaced. Diet advanced to regular. DVT prophylaxis contraindicated until postop day 2. Antibiotic plan: Final duration to be determined. Glycemic control: Subcutaneous by sliding scale. Dressing care: Removal on postop day 1. Activity restrictions: Head of bed 30 degrees. Imaging: No postop imaging. Initial Surgical Contact: Neurosurgery at pager [phone]. Indications For Procedure: Please see [facility] for full details, but briefly, Marisela Bell i s a 68-year-old woman who had a previous high-grade subarachnoid hemorrhage in 2007. She posadas d a postoperative hydrocephalus which required a ventriculoperitoneal shunt, and a left supe rficial neck abscess that required drainage. She subsequently was lost to followup and then re-presented in 2015 with resorption of her bone flap and loose hardware. She had underwen t synthetic cranioplasty at that time, but had exposed cranioplasty in November 2017, which w as then explanted. She then returned our clinic desiring cranioplasty for cosmetic reasons. We did drug and alcohol counselor her that she may require a free flap for tissue coverage after cranioplasty due to her very thin skin. In addition, she continues to smoke despite recommendations to stop smoking. She then subsequently underwent a cranioplasty in April 2018. The wound was able to be closed primarily. Unfortunately, she then re-presented back to us with an expose d cranioplasty in the center of her cranioplasty distant from the incision. She was therefo re indicated for explant of the cranioplasty. A full PARQ discussion was held with the hailey ent. We enlisted the ENT team for help with closure of her complex wound. Full PARQ discus gabriel was held with her. Consent was signed and placed in chart prior to proceeding. Procedure In Detail: The patient was identified in the preoperative holding area she was b rought back to the [facility]. She was intubated without difficult y by the anesthesia team. Eyes were taped shut using Tegaderm. She was positioned supine w ith her head turned. Her previous incision was identified and shaved. We then prepped usin g Hibiclens and ChloraPrep, as she had an iodine allergy. We did not inject local anesthesi a. We did not give Ancef as we were about to obtain cultures. We performed a team pause, w here we verified this was the correct patient and correct position, and that we were about t o perform the correct procedure. A #10 blade was used to perform skin incision. We then elevated the skin flap easily. We removed the cranium on top of the bur hole covers and then removed the screws and dog bones bones from her skull, thus effectively removing the cranioplasty from her surrounding skull. This was then handed to the back table. We used a culture swab to swab the epidural space . This was sent out for culture. Following that, we then handed over the case to Dr. Christopher moreno then performed closure. At the end of our portion of the case, all needle counts, sponge counts, and instrument counts were correct x2. MD Adolfo Emmanuel MD JLG/NGUYEN /[id number] aAta michael MD - 07/12/19 2:21 PM PDTAssociated Order(s): OPERATION RECORDDate of Service: 07/11/2018 Attending Surgeon:Ata White MD Gloria was brought to the operating room, where general anesthesia was induced. She was or otracheally intubated, prepped and draped in usual manner. Surgical pause was performed. Preoperative Diagnosis: Exposed cranioplasty. Postoperative Diagnosis: Exposed cranioplasty. Operative Procedure: Removal of cranioplasty by Neurosurgical service, elevation of an ant erior flap approximately 25 x 8 cm undermining with a galeatomy of the posterior incision ap proximately 25 x 3 x 5 cm and then advancement and closure of the craniotomy site. Description Of Procedure: She was brought to the operating room and the cranial incision w as performed. We elevated the flap anteriorly. We then came down and came through the gale a and divided this inferiorly so we could mobilize the anterior skin flap. This was done. We incised the galea and created a large skull anterior skin flap based on the forehead, com ing down to the supraorbital rims and down over the temporalis and into the fossa. Once we had mobilized this we then went posteriorly, identified the galea 3 cm behind the incision, elevated in a subperiosteal fashion and then incised the galea and elevated the posterior sc alp anteriorly. This allowed us to close the wound with 3-0 Vicryl. We were able to put to gether the defect, which was approximately 4 x 2 cm. This was closed using nylons in a sing le layer due to the thinness of the scalp. The closure looked good at the end. She was cleaned up, woken up, extubated and sent to [facility] recovery room. Ata White MD MW/MODL /[id number] signed by Ata White MD at 07/11/2018 3:28 PM PDTdoc umented in this encounter Consult Notes Doug Aponte MD - 07/10/2018 10:31 AM PDTAssociated Order(s): IP CONSULT TO NEUROLOGICA L SURGERY Neurosurgery History and Physical Date: 07/10/2018 Neurosurgery Attending: Adolfo Urbina MD HPI/Interval Update: Gloria Bell is a 68yo woman w remote SAH 2/2 AComm requiring clipping c/b bone resorption and multiple cranioplasty explants and re-implantations who re-presents with inc identally identified wound dehiscence. Son called in yesterday after patient noticed that sh leonides could feel her cranioplasty. Denies fevers/chills/nausea/vomiting/headaches. Has "felt fin e". Denies anti-plt/anti-coag medications. Review Of Systems: Negative unless noted above Past Histories Allergies: Allergies Allergen Reactions [place] Tar Hives Betadine [Povidone-Iodine (With Soap)] Rash Cipro [Ciprofloxacin] Nausea and Vomiting Codeine Hcl Nausea and Vomiting Sulfa (Sulfonamide Antibiotics) Erythema Past Surgical History Procedure Laterality Date Partial thyroidectomy Right Hysterectomy Bladder suspension 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 Host/Hostess shunt Tympanoplasty Right 1987 Lumpectomy of left breast 1979 Coronary stent placement 12/28/2014 status post stent placement in the mid LAD Removal of svp programmatic tv shunt Cholecystectomy Past Medical History: Diagnosis Date Abnormal LFTs (liver function tests) CAD in [place] artery s/p NSTEMI 12/27/2014; status post stent placement in the mid LAD Chronic pain COPD on oxygen at night Essential hypertension GERD (gastroesophageal reflux disease) Goiter Hemorrhagic stroke (HCC) 2007 aneurysm MRSA (methicillin resistant staph aureus) culture positive post cariotomy for SAH Otitis media recent abx preadmit PONV (postoperative nausea and vomiting) Subarachnoid hemorrhage due to ruptured aneurysm (HCC) 2007 Tobacco dependence Family History Problem Relation Additional Family History Mother dementia Cancer Father brain Cancer Brother lung Medications No prescriptions prior to admission. No prescriptions prior to admission. Scheduled Medication: PRN Medication: IV Medication: Exam Physical Exam: Vitals: Last 24 hour min/max Temp: 36.4 C (97.6 F) Temp Min: 36.4 C (97.6 F) Max: 36.4 C (97.6 F) Pulse: 73 Pulse Min: 73 Max: 76 Resp: 14 Resp Min: 14 Max: 18 BP: 92/52 BP Min: 92/52 Max: 103/60 SpO2: 92 % SpO2 Min: 92 % Max: 97 % Body mass index is 21.21 kg/m. Awake, alert, oriented to person, place, time, and situation Appropriately interactive PERRL, EOMI, FS, TML BUE/BLE 5/5 No drift SILT Data Radiology: None Complete Blood Count/Coags Recent Labs 05/14/18 1353 05/15/18 0236 WBC 8.33 7.78 HB 12.1 12.0 HCT 37.0 35.6* PLT 325 309 Recent Labs 05/08/18 0822 05/15/18 0236 INRPT 1.01 1.08 APTT 31.5 28.4 Blood Gas No results for input(s): FIO2, PH, PCO2, PO2, HCO3, [id number], N8KCRDKF, B6DIJNAJO in the l ast 720 hours. CSF Results No results for input(s): WBCCSF, RBCCSF, GLUCOSECSF, PROTEINCSF in the last 8640 hours. Urinalysis No results for input(s): URINECOLOR, URAPPEARANCE, URINELE, URINENITRITE, URINEPROTEIN, URI NEBLOOD, URSPECGRAV, URINEKETONES, URINEGLUCOSE, URINEBACTERI, URINESQEPI, URINEWBC, URINEYE AST in the last 8640 hours. Chemistry Recent Labs 05/09/18 0005 05/14/18 1353 05/15/18 0236 NA 137 136 138 K 4.0 4.2 4.1 CL 109* 104 105 BICARB 21 27 25 BUN 13 10 15 CR 0.68 0.69 0.78 GLU 105* 97 125* CA 7.8* 8.4* 8.5* MG 1.7 -- -- PO4 2.7 -- -- LFT/Lipid Panel Recent Labs 05/14/18 1353 TBILI 0.4 AP 95 TP 7.2 ALB 3.1* AST 13 ALT 22 No results for input(s): CHOL, LDL, HDL, TRI in the last 8640 hours. Culture Results CULTURE RESULT (no units) Date Value 05/13/2008 CSF Culture Source...............: Cerebrospinal Fluid RLB Gram Stain...........: Gram smear performed at [facility]. Culture: Final Report: No growth after 3 days. Final Report 04/29/2008 CSF Culture Source...............: Cerebrospinal Fluid RLB Gram Stain...........: Gram smear performed at [facility]. Culture: Rare Methicillin resistant Staphylococcus aureus Final ID MRSA Cefazolin R Clindamycin S Erythromycin R Oxacillin R Penicillin R Tetracycline S Trimeth/Sulfa S Vancomycin S Final Report CULTURE RESULT (no units) Date Value 05/14/2018 Final Report:No Bacteria or Yeast isolated at 5 days. 05/14/2018 Final Report:No Bacteria or Yeast isolated at 5 days. Assessment and Plan Gloria Bell is a 68yo woman w hx right pterional craniotomy for ruptured AComm clipping and subsequent bone resorption->cranioplasty->explant +VPS explant due to infectio n->re-implantation who now presents with wound dehiscence. No e/o infection, but will favor a conservative approach w explant followed by delayed cranioplasty + ALT flap. Difficult wou nd closure, will require facial plastics assistance. - Carlitos Cooper attending - Admit labs, inc inflammatory markers - CT wwo - OR tmrw for explant, primary closure Doug Aponte MD Neurosurgery PGY2 [id number] Risk and Morbidity Patient Risk Modifiers - Including but not limited to. Age: 68 y.o. female DNR: Prior Transfer status/urgency : From Outside Hospital : From [facility] ER: Symptom Onset: Less than 12 hours (07/10/18 09 1) Patient Acuity: 3 (07/10/18920) Destination: Acute (07/10/18920) Palliative/end of Life Care :Not applicable First GCS and if Mechanically Ventilated/Intubated: Best Motor Response: 6-->(M6) obeys commands (07/10/18920) Best Verbal Response: 5-->(V5) oriented (07/10/18920) Best Eye Response: 4-->(E4) spontaneous (07/10/18920) Score (Chen Coma Scale): 15 (07/10/18920) Last GCS and if Mechanically Ventilated/Intubation: Best Motor Response: 6-->(M6) obeys commands (07/10/18920) Best Verbal Response: 5-->(V5) oriented (07/10/18920) Best Eye Response: 4-->(E4) spontaneous (07/10/18920) Score ([place] Coma Scale): 15 (07/10/18920) Comatose State: If GCS<9 Then patient by definition is in a comatose state Score ([place] Coma Scale) Min: 15 Max: 15 Loss of Consciousness: No Cerebral Thrombus and/or Stroke: Not applicable Current Received Ventriculostomy/Ventricular Catheter: Not applicable Last ICP if Ventricular Catheter Placed: Malnutrition: Moderate protein-calorie malnutrition Surgical Interventions :No diagnosis found. Procedures: No admission procedures for hospital encounter. Coagulopathy: No Weight loss prior to admission: No Patient Active Problem List Diagnosis Date Noted History of chronic respiratory failure 05/26/2018 Ischemic cardiomyopathy 05/08/2018 Overview Note: TTE on 05/09/2017 EF 35-40% 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 with several focal areas of dyskinesis RV normal size and function Mild Aortic Regurgitation PONV (postoperative nausea and vomiting) 05/08/2018 Acute postoperative pain 05/08/2018 Tobacco dependence Encounter for long-term (current) use of antibiotics 12/09/2017 Skull defect 10/23/2015 Overview Note: In September of 2007 she had HH4F3 SAH 2/2 ruptured acomm aneurysm s/p craniectomy and clipp 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 In December of 2014 she was noted to have a right crani screw exposed with significant sunken cranial d efect but 2/2 to her recent NSTEMI, stent placement and DAPT she was deferred for surgery. I n October of 2015 she had an uncomplicated right synthetic cranioplasty. In November 8 she was noted right sided wound dehiscence and epidural MSSA wound infection for which she underwent explant of right frontal VPS and right cranioplasty. She was discharged home with a PICC and received IV ceftriaxone for 6 weeks. Continuous tobacco abuse Coronary arteriosclerosis in [place] artery 03/06/2015 History of non-ST elevation myocardial infarction (NSTEMI) 12/28/2014 Overview Note: Overview: Cath 12/28/14: 100% LAD - stented with bare metal due to history of cerebral aneurysm. Norm al LM; normal LCX; 20-30% RCA. Elevated EDP. Echo.12/28/14. LVEF.54% Chronic obstructive pulmonary disease (HCC) 10/24/2007 Overview Note: ICD10 HTN (hypertension) 10/24/2007 Overview Note: ICD10 Chronic pain 10/24/2007 Hypotension/Shock:No CHF:No Metabolic Disorder:No Malignancy: No Edema/Herniation:No Associated attestation - Adolfo Urbina MD - 07/11/2018 5:58 PM PDTI have seen and examined the patient. I agree with the resident's documentation and have documented any additions o r exceptions. Adolfo Urbina MD Yard Assistant - Skull base and Cerebrovascular Neurosurgery Department of Neurological Environmental Protection OfficerYard Assistant - Interventional Neuroradiology Alex Ochoa Department of Interventional Radiology [facility] Mel Blanca MD - 07/10/2018 9:34 AM PDTAssociated Order(s): IP CONSULT TO O TOLARYNGOLOGY OTOLARYNGOLOGY/HEAD & NECK SURGERY CONSULT H&P Date: 07/10/2018 Requesting Physician: Machelle Gaines MD Consult Attending: Ata White MD Chief Complaint: exposed cranioplasty HPI: Gloria Bell is a 68 y.o. female with a history of remote SAH 03/25 ruptured A-comm aneurysm with subsequent development of a right frontotemporal skull defect, s/p mnoy cement of synthetic cranioplasty 11/06. She developed an infection of her cranioplasty with associated epidural abscess requiring explantation in 12/08 and most recently underwent a re peat synthetic cranioplasty with the Neurosurgery team 05/09, at which time Dr White/Terence bhardwaj rformed a rotation advancement scalp flap for coverage of new implant. She states she had been doing fine but noticed progressive alopecia over the right frontote mporal area and yesterday noted that the implant was exposed. She is unsure when this became exposed. She reports no associated symptoms. States the area is insensate and denies pain, purulence, recent fevers/chills/malaise, headache, changes in mental status, recent weight l oss. She reports she is still smoking. Has a chronic cough which is not worse than her baseline. Otherwise feeling well. Denies recent weight loss, fatigue, dysphagia, cervical lymphadenop athy, neck pain, changes in her voice. She is left handed. Past Medical History Diagnosis Date GERD (gastroesophageal reflux disease) Essential hypertension Tobacco dependence COPD on oxygen at night Otitis media recent abx preadmit Chronic pain Subarachnoid hemorrhage due to ruptured aneurysm (HCC) 2007 Goiter CAD in [place] artery s/p NSTEMI 12/27/2014; status post stent placement in the mid LAD Abnormal LFTs (liver function tests) MRSA (methicillin resistant staph aureus) culture positive post cariotomy for SAH Hemorrhagic stroke (HCC) 2007 aneurysm PONV (postoperative nausea and vomiting) Past Surgical History Procedure Date Partial thyroidectomy Hysterectomy Bladder suspension 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 Host/Hostess shunt Tympanoplasty 1987 Lumpectomy of left breast 1979 Coronary stent placement 12/28/2014 status post stent placement in the mid LAD Removal of svp programmatic tv shunt Cholecystectomy Social History Tobacco Use Smoking status: Current Every Day Smoker Packs/day: 1.00 Years: 50.00 Pack years: 50.00 Types: Cigarettes Smokeless tobacco: Never Used Tobacco comment: Substance Use Topics Alcohol use: No Alcohol/week: 0.0 oz Drug use: No Family History Problem Relation Additional Family History Mother dementia Cancer Father brain Cancer Brother lung Allergies Allergen Reactions [place] Tar Hives Betadine [Povidone-Iodine (With Soap)] Rash Cipro [Ciprofloxacin] Nausea and Vomiting Codeine Hcl Nausea and Vomiting Sulfa (Sulfonamide Antibiotics) Erythema No current facility-administered medications on file prior to encounter. Current Outpatient Medications on File Prior to Encounter Medication Sig Dispense Refill acetaminophen 325 mg oral tablet Take 1-2 tablets by mouth every four hours as needed. Indications: Pain aspirin EC 81 mg oral tablet,delayed release (DR/EC) Take 1 tablet by mouth once daily. Do not restart aspirin until 2 weeks after surgery-05/24/18 atorvastatin 80 mg oral tablet Take 80 mg by mouth once daily. ipratropium-albuterol 0.5 mg-3 mg(2.5 mg base)/3 mL inhalation solution for nebulizatio n Inhale 3 mL two times daily. lisinopril 5 mg oral tablet Take 5 mg by mouth once daily. metoprolol succinate 50 mg oral tablet extended release 24 hr Take 50 mg by mouth once daily. nitroglycerin 0.4 mg sublingual tablet, sublingual Place 0.4 mg under tongue every five minutes as needed for chest pain. Place under tongue and allow to dissolve. Administer hamzah ry 5 minutes, max of 3 doses in 15 minutes. polyethylene glycol 17 gram oral powder in packet Mix 1 packet and take orally three ti mes daily as needed (1st line - for no BM for 2 days). Indications: constipation (Patient no t taking: Reported on 06/02/2018) spironolactone 25 mg oral tablet Take 25 mg by mouth once daily. ROS: General: Negative Eyes: Negative Ears, Nose and Throat: Per HPI. No ear pain, ear discharge, hearing loss, ringing in the ea rs, nasal congestion, nosebleeds, throat pain, difficulty breathing, difficulty swallowing, hoarseness Respiratory: Negative Musculoskeletal: Negative Cardiovascular: Negative Gastrointestinal: Negative Genitourinary: Negative Neurologic: Negative Skin: Negative Psychological: Negative Heme/Lymphatic: Negative Endocrine: Negative Allergic: Negative Physical Exam: Last Vitals: BP 103/60 | Pulse 76 | Temp 36.4 C (97.6 F) | Resp 14 | Ht 1.499 m (4' 11") | Wt 47.6 kg (105 lb) | SpO2 94% | BMI 21.21 kg/m | BSA 1.41 m General: well developed, well nourished, NAD Head: 2x3cm area of exposed synthetic cranioplasty with surrounding erythema, alopecia and increased skin vascularity No purulence, no induration, no fluid collection Eyes: EOMI, sclera white, conjunctiva pink Neuro: CN V1-3 sensation intact bilaterally, CN VII intact and symmetric in all branches, t ongue midline, shoulder shrug intact bilaterally Ears: hearing intact to conversational voice, EAC clear, TM clear without perforation or ef fusion bilaterally Nose: normal external appearance, nares patent, septum midline, mucosa pink and moist Oral Cavity: FOM soft, mucosa pink and moist without lesions Oropharynx: soft palate and uvula midline, tonsillar pillars normal, posterior pharyngeal w all normal Neck: no masses, no LAD, no thyromegaly Cardiovascular: regular rate Respiratory: breathing comfortably on room air, no stridor Studies Reviewed: Labs: Lab Results Component Value Date NA 138 05/15/2018 K 4.1 05/15/2018 CL 105 05/15/2018 BICARB 25 05/15/2018 BUN 15 05/15/2018 CR 0.78 05/15/2018 GLU 125 05/15/2018 CA 8.5 05/15/2018 ANIONGAP 8 05/15/2018 ANIONALBCOR 7 05/14/2018 Lab Results Component Value Date WBC 7.78 05/15/2018 HB 12.0 05/15/2018 HCT 35.6 05/15/2018 PLT 309 05/15/2018 MCV 91.8 05/15/2018 RDW 45.0 05/15/2018 Imaging: None new Assessment: 68F with a history of remote SAH 2/2 ruptured A-comm aneurysm with subsequent d evelopment of a right frontotemporal skull defect, s/p placement of synthetic cranioplasty 0 11/06. She developed an infection of her cranioplasty with associated epidural abscess requir ing explantation in 12/08 and most recently underwent a repeat synthetic cranioplasty with t Neurosurgery team 05/09, at which time Dr White/Terence performed a rotation advancement sca lp flap for coverage of new implant. She presents today with dehiscence of her cranioplasty, no apparent signs of infection. Recommendations: - will coordinate with NSGY for cranioplasty explant and primary closure of wound - Patient added on for tomorrow, consent signed. - Please make NPO @ [place] - No need for antibiotics from ENT perspective. - remainder of care per NSGY team The patient was discussed with Dr. White, who is the attending of record for this encounter. Mel Shelton MD Resident Physician, PGY1 Otolaryngology, H&N Surgery Pager [phone] Associated attestation - Ata White MD - 07/11/2018 11:31 AM PDTI saw and evaluated the pat ient. I repeated the xam and agree with the findings and the plan. Gont to or on tue Explant rotation of flaps closure of scalp 30 min spent coucncelingdocumented in this encounter ED Notes Carlos Eduardo Shah RN - 07/10/2018 3:14 PM PDTReport given to Ba RN arlos Eduardo Shah RN - 07/10/2018 11:17 AM PDTPt res ting comfortably; no complaints @ this timeElectronically signed by Carlos Eduardo Shah RN at 06/22 11:17 AM Candie Keller RN - 07/10/2018 9:25 AM PDTPT arrived with c/o of crania l plasty that is exposed from surgery 2018. PT states this is the 3rd time it has been expos ed on the surface of the skin. Pt denies fever, no redness or drainage from site. PT A/Ox4. Machelle Velez MD - 9:24 AM PDT ED Shared Provider Note, co-authored by Dov Gaines MD and SMOOTH CLINTON MD: HPI 68 yo female with hx of craniectomy and clipping from SAH in , complicated by hydroc ephalus s/p vps placement, s/p cranioplasty in 2015, which has been complicate by wound dehi scence multiple times. She presents with wound dehiscence of her right temporal area of the cranioplasty. She had a scalp flap rotated on 05/08/18 by plastics (ENT, Dr. White). She was seen in neurosurgery clinic Mid May and wound was healing well, note states there was a s mall scab. Pt reports she had no problems and then yesterday noted dehiscence again which posadas s gotten worse today. She denies any systemic infectious symptoms, neck pain, or other acute pain or complaint. Some slight erythema surrounding the area, but no purulent drainage or o r symptoms. 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 In December of 2014 she was noted to have a right crani screw exposed with significant sunken cranial d efect but 2/2 to her recent NSTEMI, stent placement and DAPT she was deferred for surgery. I n October of 2015 she had an uncomplicated right synthetic cranioplasty. In November she was noted right sided wound dehiscence and epidural MSSA wound infection for which she underwent explant of right frontal VPS and right cranioplasty. She was discharged home with a PICC and received IV ceftriaxone for 6 weeks. Continuous tobacco abuse Coronary arteriosclerosis in [place] artery 03/06/2015 History of non-ST elevation myocardial infarction (NSTEMI) 12/28/2014 Overview Note: Overview: Cath 12/28/14: 100% LAD - stented with bare metal due to history of cerebral aneurysm. Norm al LM; normal LCX; 20-30% RCA. Elevated EDP. Echo.12/28/14. LVEF.54% Chronic obstructive pulmonary disease (HCC) 10/24/2007 Overview Note: ICD10 HTN (hypertension) 10/24/2007 Overview Note: ICD10 Chronic pain 10/24/2007 Past Medical History Diagnosis Date GERD (gastroesophageal reflux disease) Essential hypertension Tobacco dependence COPD on oxygen at night Otitis media recent abx preadmit Chronic pain Subarachnoid hemorrhage due to ruptured aneurysm (HCC) 2007 Goiter CAD in [place] artery s/p NSTEMI 12/27/2014; status post stent placement in the mid LAD Abnormal LFTs (liver function tests) MRSA (methicillin resistant staph aureus) culture positive post cariotomy for SAH Hemorrhagic stroke ([facility]) 2007 aneurysm PONV (postoperative nausea and vomiting) Past Surgical History Procedure Date Partial thyroidectomy Hysterectomy Bladder suspension 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 Host/Hostess shunt Tympanoplasty 1987 Lumpectomy of left breast 1979 Coronary stent placement 12/28/2014 status post stent placement in the mid LAD Removal of svp programmatic tv shunt Cholecystectomy Medications Prior to Admission Medications Prescriptions Last Dose Informant Patient Reported? Taking? acetaminophen 325 mg oral tablet No No Sig: Take 1-2 tablets by mouth every four hours as needed. Indications: Pain aspirin EC 81 mg oral tablet,delayed release (DR/EC) Yes No Sig: Take 1 tablet by mouth once daily. Do not restart aspirin until 2 weeks after surgery- 05/24/18 atorvastatin 80 mg oral tablet Yes No Sig: Take 80 mg by mouth once daily. ipratropium-albuterol 0.5 mg-3 mg(2.5 mg base)/3 mL inhalation solution for nebulization Yes No Sig: Inhale 3 mL two times daily. lisinopril 5 mg oral tablet Yes No Sig: Take 5 mg by mouth once daily. metoprolol succinate 50 mg oral tablet extended release 24 hr Yes No Sig: Take 50 mg by mouth once daily. nitroglycerin 0.4 mg sublingual tablet, sublingual Yes No Sig: Place 0.4 mg under tongue every five minutes as needed for chest pain. Place under ton nithin and allow to dissolve. Administer every 5 minutes, max of 3 doses in 15 minutes. polyethylene glycol 17 gram oral powder in packet No No Sig: Mix 1 packet and take orally three times daily as needed (1st line - for no BM for 2 d ays). Indications: constipation Patient not taking: Reported on 06/02/2018 spironolactone 25 mg oral tablet Yes No Sig: Take 25 mg by mouth once daily. Facility-Administered Medications: None Allergies Allergen Reactions [place] Tar Hives Betadine [Povidone-Iodine (With Soap)] Rash Cipro [Ciprofloxacin] Nausea and Vomiting Codeine Hcl Nausea and Vomiting Sulfa (Sulfonamide Antibiotics) Erythema Social History reports that she has been using cigarettes. she has a 50 pack-year smoking history. her reports that her does not currently drink alcohol or use drugs. Family History Problem Relation Additional Family History Mother dementia Cancer Father brain Cancer Brother lung Review of Systems Complete ROS performed and negative except as noted in HPI. ED Triage Vitals BP Temp Heart Rate Pulse - Plethysmograph Resp SpO2 07/10/18 0922 07/10/18 0921 07/10/18 0923 07/10/18 0922 07/10/18 0921 07/10/18 0922 103/60 36.4 C 76 76 pulses/min 18 97 % Physical Exam Constitutional: She is oriented to person, place, and time. No distress. HENT: Head: Normocephalic. Eyes: Conjunctivae are normal. Neck: Normal range of motion. Neck supple. No JVD present. Cardiovascular: Normal rate, normal heart sounds and intact distal pulses. No murmur heard. Pulmonary/Chest: Effort normal and breath sounds normal. No respiratory distress. Abdominal: Soft. She exhibits no distension. There is no tenderness. Musculoskeletal: She exhibits no edema. Neurological: She is alert and oriented to person, place, and time. No cranial nerve defici t. She exhibits normal muscle tone. Coordination normal. Skin: She is not diaphoretic. No pallor. Psychiatric: She has a normal mood and affect. Nursing note and vitals reviewed. Medical Decision Making 68 yo female with hx of craniectomy and clipping from SAH in , complicated by hydrocepha elder s/p vps placement, s/p cranioplasty in 2016, which has been complicate by wound dehiscen ce multiple times. She presents with wound dehiscence of her right temporal area of the cran ioplasty. The vitals and physical exam were notable for the following: afebrile, hemodynamically stab le. Wound as noted above . Remainder of her exam is essentially normal including neurologi eagle exam. Given the patient's history and exam, initial differential diagnosis includes but is not li mited to infection, abscess,cellulitis, wound dehisence. ED Course - awake, alert, no distress Consults: Neurosurgery ENT MDM (continued) Gloria Bell is a 68 y.o. female presenting with scalp wound. A review of some of the patient s prior medical records was performed using chart review and Care Everywhere. Without systemic symptoms and no fever, as well as recent development of dehiscence again, low concern for systemic infection at this time. Discussed this case with neurosurgery resid ent video production specialist and they will accept to their service. Given no fevers and hemodynamically stabl e, no indication for empiric antibiotics at this point. Spoke with ENT video production specialist who did the procedure last month, they will come see the patient. ENT will take for skin flap to the OR likely tomorrow. ED Medication Administration from 07/10/2018 0855 to 07/10/2018 1159 None Admit Requested: July 10, 2018 11:53 AM IMPRESSION: T81.31XA Dehiscence of operative wound, initial encounter Z98.890 History of cranioplasty PLAN, DISPOSITION AND FOLLOW-UP: Admit to inpatient management 12:23 PM, MACHELLE GAINES MD, Faculty Note: I performed a history and physical examination on this patient and directly supervised the medical decision making and care. The resident and I co-wrote the ED Provider Note using the [employer] share function. I agree with the documentation findings and plan of care. In this note documentation noting the patient's drug/alcohol use may be incorrect. Review p anurag's history. HIM Admin 04/20/19 0848 documented in this enco unter Miscellaneous Notes Plan of Care - Fabienne Navarro RN - 07/13/2018 6:32 PM PDTPatient Education Materials: AVS p rinted out after 10K pharmacist verified medications, discussed discharge paperwork and educ ation, all questions answered. PIVs removed, all belongings gathered and sent home with hailey ent. Patient discharged from hospital in wheelchair with family to drive her home. Additional Instructions: discussed follow up appointments, home crani care, smoking cessati on. Discharge Nurse: FABIENNE NAVARRO RN Date: 07/13/2018 Discharge Time: 1829 andoff - Jemima Holloway RN - 07/13/2018 1:08 AM PDTNursing Handoff [place] IP NURSE HANDOFF: [facility] hospital course events: Admit: 07/10 wound dehiscence Hx: Crani for aneurysm clipping (ruptured acomm - 2007), Rt VPS, Rt cranioplasty (2015) Rt VPS and synthetic cranioplasty explant (2017), Rt synthes cranioplasty (2018) 07/11: Explant of Rt synthes cranioplasty PMH: GERD (gastroesophageal reflux disease), Essential hypertension, Tobacco dependence COPD on oxygen at night, Otitis media, Chronic pain, Subarachnoid hemorrhage due to rupture d aneurysm (HCC) 2007, Goiter, CAD in [place] artery s/p NSTEMI 12/27/2014; status post stent placement in the mid LAD, Abnormal LFTs (liver function tests), MRSA (methicillin resistant staph aureus) culture positive, Hemorrhagic stroke, PONV SAFETY Patient/Family Target: Gloria will call for assistance before getting up. Progress to Target: Improving As evidenced by: Gloria has called appropriately this shift. Bed alarm when family not at BS. Helmet fitte d this shift for OOB activity. Continue to stress importance of continued use at home. HYGIENE/INFECTION Patient/Family Target: Gloria's incision will remain clean, dry, and intact. Progress to Target: No Change As evidenced by: Gloria has been having scant drainage from crani incision above right ear where her eye g lasses rest. Increased sanguinous drainage noted overnight, but improved with repositioning and removing glasses. HEALTH PROMOTION Patient/Family Target: Gloria will have a BM. Progress to Target: Deteriorating As evidenced by: LBM 07/08. Gloria declines any bowel meds overnight. Continue to encourage activity, juic es, and bowel meds as able. NURSING ASSESSMENT & RECOMMENDATIONS FORWARD Nursing Assessment of Patient Stability Risk: Moderately stable Recommendations Forward: - LBM 07/08 - Possible discharge to home tomorrow 07/13 - Pt up with 1P SBA, helmet on when OOB - Pt uses 2 L oxygen at night at home (COPD - smoker). Pt has been on 2 L oxygen continuou sly in hospital. - Monitor Rt head incision. ENT wanted vaseline on incision, but NSU did not want anything on the incision including a dressing. Scant SS drainage increased with glasses. - Monitor for headaches. Pt has had not pain to this point. Barriers to discharge: Needs BM andoff - Tracy Broussard RN - 07/12/2018 5:14 PM PDTNursing Handoff [facility] IP NURSE HANDOFF: [facility] hospital course events: Admit: 07/10 wound dehiscence Hx: Crani for aneurysm clipping (ruptured acomm - 2007), Rt VPS, Rt cranioplasty (2015) Rt VPS and synthetic cranioplasty explant (2017), Rt synthes cranioplasty (2018) 07/11: Explant of Rt synthes cranioplasty PMH: GERD (gastroesophageal reflux disease), Essential hypertension, Tobacco dependence COPD on oxygen at night, Otitis media, Chronic pain, Subarachnoid hemorrhage due to rupture d aneurysm (HCC) 2007, Goiter, CAD in [place] artery s/p NSTEMI 12/27/2014; status post stent placement in the mid LAD, Abnormal LFTs (liver function tests), MRSA (methicillin resistant staph aureus) culture positive, Hemorrhagic stroke, PONV SAFETY Patient/Family Target: Gloria will call for assistance before getting up. Progress to Target: Improving As evidenced by: Gloria has called appropriately this shift. Bed alarm when family not at BS. Helmet fitte d this shift for OOB activity. HYGIENE/INFECTION Patient/Family Target: Gloria will have a BM. Progress to Target: Deteriorating As evidenced by: LBM 07/08. Gloria declines any bowel meds. Apple juice given and ambulation promoted. No r esults yet. HEALTH PROMOTION Patient/Family Target: Gloria will walk in halls x2 with staff. Progress to Target: Improving As evidenced by: Gloria ambulated in halls twice with SBA. NURSING ASSESSMENT & RECOMMENDATIONS FORWARD Nursing Assessment of Patient Stability Risk: Moderately stable Recommendations Forward: - LBM 07/08 - Possible discharge to home tomorrow 07/13 - Pt up with assist of 1, helmet OOB - Pt uses 2 L oxygen at night at home (COPD - smoker). Pt has been on 2 L oxygen continuou sly in hospital. - Monitor Rt head incision. ENT wanted vaseline on incision, but NSU did not want anything on the incision including a dressing. Scant SS drainage - Monitor for headaches. Pt has had not pain to this point. Barriers to discharge: Needs BM ussein - Vida Rogel RN - 07/12/2018 2:07 PM PDTNursing Handoff [facility] IP NURSE HANDOFF: [facility] hospital course events: Admit: 07/10 wound dehiscence Hx: Crani for aneurysm clipping (ruptured acomm - 2007), Rt VPS, Rt cranioplasty (2015) Rt VPS and synthetic cranioplasty explant (2017), Rt synthes cranioplasty (2018) 07/11: Explant of Rt synthes cranioplasty NURSING ASSESSMENT & RECOMMENDATIONS FORWARD Nursing Assessment of Patient Stability Risk: Moderately stable Recommendations Forward: - Possible discharge to home tomorrow 07/13 - Pt needs helmet from orthotics - order placed 07/12 - Pt up with assist of 1 - Pt uses 2 L oxygen at night at home (COPD - smoker). Pt has been on 2 L oxygen continuou sly in hospital. - Monitor Rt head incision. ENT wanted vaseline on incision, but NSU did not want anything on the incision including a dressing - Monitor for headaches. Pt has had not pain to this point. androhith - Julia Melton RN - 07/12/2018 3:35 AM PDTNursing Handoff Patient Daily Goal: increase fluids (07/11/18 2330) [facility] IP NURSE HANDOFF: [facility] hospital course events: Gloria Bell is a 68 y.o. fe male with a history of remote SAH 2/2 ruptured A-comm aneurysm with subsequent development o f a right frontotemporal skull defect, s/p placement of synthetic cranioplasty 11/06. She de veloped an infection of her cranioplasty with associated epidural abscess requiring explanta tion in 12/08 and most recently underwent a repeat synthetic cranioplasty with the Neurosurg shanell team 05/09, at which time Dr White/Terence performed a rotation advancement scalp flap for coverage of new implant. She presents to [facility] today with exposed synthetic bone flap and will be taken to OR for a e xplant of flap and wound revision. SAFETY Patient/Family Target: Gloria will use the callight when needing assistance. Progress to Target: Improving As evidenced by: Gloria uses the callight. She walks with supervision to the . BA turned off last night as she was not reporting dizziness upon standing. Gloria is aware of limitations and tubing, using NC and SCDs. NURSING ASSESSMENT & RECOMMENDATIONS FORWARD Nursing Assessment of Patient Stability Risk: Moderately stable Recommendations Forward: -Maintain pain control post operatively, monitor for infection, of em smoking cessation materials. -Gloria has been SBA overnight. Is steady on feet. History of reported dizziness upon stand ing, has been hypotensive, and reported fall within last month. -pain denied this shift -Last BM 07/08 -encourage fluids -follow up on pt needing bone flap precautions Barriers to discharge: Pending clinical course Ruben Alexandra RN - 07/11/2018 3:10 PM Bo Phase I Discharge Criteria (Stable For Transfer): Major deviations/events or pertinent findings of eddie-operative stay: 68F with ahistory o f remote SAH 2/2 ruptured A-comm aneurysmwith subsequent development of aright frontotem poral skull defect, s/p placement of synthetic cranioplasty 11/06. She developed an infectio n of her cranioplasty with associated epidural abscess requiring explantation in 12/08 and m ost recently underwent a repeat synthetic cranioplasty with the Neurosurgery team 05/09, at which time Dr White/Terence performed a rotation advancement scalp flap for coverage of new imp lant. Gloria arrived in PACU oriented x4 and moving all extremities on command, facial symme try, lethargic. A current smoker with COPD, she has a persistent cough and OSats between 88 and 91 on room air. She denies pain and a brief bout of nausea has resolved with phenargan a dmin. Anticipated post-op needs/devices/follow up: neuro checks, wound care, advance diet and act ivity, Abx Post-Op Diagnosis Codes: * Other acquired deformity of head [M95.2] Surgical Procedure Planned - Actual Procedure Performed: Procedure(s) with comments: CRANIOPLASTY FOR REVISION - RIGHT CRANIOPLASTY EXPLANT, COMPLEX WOUND CLOSURE Anesthesia: General Length of procedure: In Room/Out of Room: 2 Hr 41 Min 50 Sec Surgeon(s) and Role: * Adolfo Urbina MD - Primary * Ata White MD - Assisting OR positioning comments: Neuro: POSS Sedation Level: 3 Last pain medication given: Pain medication totals: none postop Additional pain medication information: none Functional Epidural: N/A [employer] INSPECTOR: N/A Respiratory: RR: 15 , O2 Sat: 92 % , O2 Delivery: Nasal cannula Breath Sounds: Ex DARIEN: LLL: RUL: RLL: MELISSA No Comment: persistent cough and has COPD Cardiac: BP: 106/47 HR: 71 GI: Nausea/Vomiting Status: Yes- Signs/Symptoms: intermittent nausea Interventions: antiemetic given Assessment: relief of signs/symptoms Comments: resolved : Last void: preop Contact Name: Feb Contact Number: [phone] Family contacted: Yes Comment: no answer Belongings: in cooper room rief Op Note - Kari Cavazos MD - 07/11/2018 11:33 AM PDTFormatting of this note might be different from the lenin ginal. Brief Op Note Procedure Date: 07/11/2018 Author: KARI CAVAZOS MD Attending Physician: Adolfo Urbina MD Assistants: Kari Cavazos MD Preoperative Diagnosis: wound dehiscence, history of right frontotemporal acquiared skull d efect s/p synthes custom cranioplasty Postoperative Diagnosis: same as above Procedure Performed: explant of right synthes custom cranioplasty, wound revision Anesthesia: General Estimated Blood Loss: 10 ml for our portion Grafts/Implants: cranioplasty flap explanted Specimens: one wound swab on epidural space sent for culture Complications: none Findings: cranioplasty explanted without issue Fluids: EBL: 10 ml Disposition: PACU then acute care Benavides: never placed Diet: ADAT to regular DVT prophylaxis: contraindicated until POD#2 Antibiotic Plan: final duration TBD Glycemic control: subcutaneous sliding scale Dressing care: RN to remove dressing on post-op day # 1 Activity restrictions: HOB > 30 degrees Imaging: no post op imaging Initial surgical contact: neurosurgery at pager [phone] Patient Lines/Drains/Airways Status Active Lines, Drains and Airways Name: Placement date: Placement time: Site: Days: Peripheral IV Right Wrist 22 g 07/10/18 1104 Wrist 1 Peripheral IV Right Antecubital 20 g 07/10/18 1305 Antecubital less than 1 Wound Left thumb Other (Comment) 12/03/17 2200 thumb 219 Wound Midline coccyx Pressure ulcer 12/03/17 2200 coccyx 219 Incision Right head 12/05/17 2127 217 Incision Right adb- upper quadrant 12/05/17 218 Incision Right head- frontal 05/08/18 64 KARI CAVAZOS MD ussein - Julia Melton RN - 07/11/2018 6:07 AM PDTNursing Handoff Patient Daily Goal: get rest (07/11/18 0005) [facility] IP NURSE HANDOFF: [facility] hospital course events: Gloria Bell is a 68 y.o. fe male with a history of remote SAH 2/2 ruptured A-comm aneurysm with subsequent development o f a right frontotemporal skull defect, s/p placement of synthetic cranioplasty 11/06. She de veloped an infection of her cranioplasty with associated epidural abscess requiring explanta tion in 12/08 and most recently underwent a repeat synthetic cranioplasty with the Neurosurg shanell team 05/09, at which time Dr White/Terence performed a rotation advancement scalp flap for coverage of new implant. She presents to [facility] today with exposed synthetic bone flap and will be taken to OR for a e xplant of flap and wound revision. HYGIENE/INFECTION Patient/Family Target: Gloria will need continued monitoring post-operatively to reduce risk of infection. Progress to Target: No Change As evidenced by: Gloria has not yet had LAILA, due to no timeline for add on today 07/11. Gloria is mostly i ndependent and should be able to complete LAILA with minimal assist. NURSING ASSESSMENT & RECOMMENDATIONS FORWARD Nursing Assessment of Patient Stability Risk: Moderately stable Recommendations Forward: Maintain pain control post operatively, monitor for infection, off er smoking cessation materials. -SBA overnight with BA on, as Gloria reported dizziness upon standing, has been hypotensive , and reported fall within last month -pain denied this shift -LAILA not completed, anticipate Gloria will be able to complete quickly when time to transp ort to OR -NPO since 14 -Last BM 07/08 Barriers to discharge: Add on to OR 07/11 andoff - Smiley Madrigal RN - 07/10/2018 5:34 PM PDTNursing Handoff Patient Daily Goal: prepare for surgery tomorrow (07/10/18 4574) [facility] IP NURSE HANDOFF: [facility] hospital course events: Gloria Bell is a 68 y.o. fe male with a history of remote SAH 2/2 ruptured A-comm aneurysm with subsequent development o f a right frontotemporal skull defect, s/p placement of synthetic cranioplasty 11/06. She de veloped an infection of her cranioplasty with associated epidural abscess requiring explanta tion in 12/08 and most recently underwent a repeat synthetic cranioplasty with the Neurosurg shanell team 05/09, at which time Dr White/Terence performed a rotation advancement scalp flap for coverage of new implant. She presents to [facility] today with exposed synthetic bone flap and will be taken to OR for a e xplant of flap and wound revision. SAFETY Patient/Family Target: Gloria hopes to not have a fall this admission. She also would like it if her head did no t become infected. Progress to Target: No Change As evidenced by: Thus far, Gloria has shown great progress toward realization of her target goal. She has called for assistance when needed and not shown a proclivity toward impulsivity. She is awar e of her risk for infection and is trying to keep her fingers away from the exposed hardware in her skull. COMFORT/ANXIETY/BEHAVIOR Patient/Family Target: Gloria is an everyday smoker and will benefit from nicotine replacement Progress to Target: No Change As evidenced by: MD's paged for patch and gum- please follow up to ensure this is available to Gloria HYGIENE/INFECTION Patient/Family Target: Gloria will need continued monitoring post-operatively to reduce risk of infection. Progress to Target: No Change HEALTH PROMOTION Patient/Family Target: Gloria says she wants to quit smoking but is afraid to try Chantix 2/2 potential side eff ects Progress to Target: No Change As evidenced by: Pharmacy may be able to offer her low or no cost smoking cessation medications and counse ling about the potential side effects. NURSING ASSESSMENT & RECOMMENDATIONS FORWARD Nursing Assessment of Patient Stability Risk: Moderately unstable Recommendations Forward: Maintain pain control post operatively, monitor for infection, off er smoking cessation materials. Barriers to discharge: Per clinical course lan of Care - Ayush Cha RCP - 07/10/2018 4:51 PM PDTFormatting of this note might be different from t [place] original. Problem: RT Goals & Interventions Goal: Evaluation Outcome: Goal partially met Note: History and Assessment Pulmonary problems: COPD Smoking history: Social History Tobacco Use Smoking Status Current Every Day Smoker Packs/day: 1.00 Years: 50.00 Pack years: 50.00 Types: Cigarettes Smokeless Tobacco Never Used Tobacco Comment Results of recent Chest X-ray: Lab Results Component Value Date CXR 10/28/2007 EXAM: AP chest HISTORY: Fever COMPARISON: Yesterday. FINDINGS: The enteric tube is been removed. Left subclavian vascular catheter is unchanged. Lung volumes are improved with persistent mild bibasilar atelectasis. No focal consolidation is seen. There may be a small residual right pleural effusion, but these have improved. Cardiac silhouette is normal. IMPRESSION: 1. Improved lung volumes with persistent mild bibasilar atelectasis. 2. Improved pleural effusions, resolved on the left and tiny on the right. I have personally viewed this procedure/exam and reviewed this report. STATUS FINAL / Dr. BLOSSOM MILLER STATUS FINAL / - - STATUS PRELIMINARY - UNSIGNED / - - Pain: Oxygen requirement: Heart rate: 80 Respiratory rate: 20 Temperature: Temp: 36.5 C (97.7 F) Breathsounds:Throughout All [place]: clear Cough and sputum production: Respiratory Acuity and Protocol Plan A respiratory evaluation has been completed. Based on this assessment Evaluated for treatme nt under home maintenance therapy. Duoneb BID per home regimen. D Teaching Not salvador - Machelle Gaines MD - 07/10/2018 12:17 PM PDTPlease see my shared note documented in this enco unter Plan of Treatment Not on filedocumented as of this encounter Procedures + +--------+ + + + | Procedure Name | Priori | Date/Time | Associated Diagnosis | Comments | | | ty | | | | + +--------+ + + + | OPERATION RECORD | | 07/11/2018 | | Results for this | | | | 3:24 PM | | procedure are in the | | | | PDT | | results section. | + +--------+ + + + | CAPILLARY BLOOD | Routin | 07/11/2018 | Dehiscence of | Results for this | | GLUCOSE (NO CHG), | e | 2:23 PM | operative wound, | procedure are in the | | POC | | PDT | initial encounter | results section. | + +--------+ + + + | OPERATION RECORD | | 07/11/2018 | | Results for this | | | | 2:21 PM | | procedure are in the | | | | PDT | | results section. | + +--------+ + + + | CULTURE, FUNGAL | Urgent | 07/11/2018 | | Results for this | | EXCEPT BLOOD, SKIN, | | 12:31 PM | | procedure are in the | | HAIR, NAIL | | PDT | | results section. | + +--------+ + + + | CULTURE, WOUND DEEP | Urgent | 07/11/2018 | | Results for this | | W/ ANAEROBE | | 12:31 PM | | procedure are in the | | | | PDT | | results section. | + +--------+ + + + | KELLI YADAV (ALL | Urgent | 07/11/2018 | | Results for this | | SPEC TYPES EXCEPT | | 12:31 PM | | procedure are in the | | BLOOD) | | PDT | | results section. | + +--------+ + + + | CRANIOPLASTY FOR | Electi | 07/11/2018 | Other acquired | | | REVISION | ve | 11:33 AM | deformity of head | | | | Surgic | PDT | | | | | al | | | | + +--------+ + + + | CARDIOLOGY | | 07/11/2018 | | Results for this | | | | 12:00 AM | | procedure are in the | | | | PDT | | results section. | + +--------+ + + + | CBC (HEMOGRAM) ONLY | Urgent | 07/10/2018 | | Results for this | | | | 5:47 PM | | procedure are in the | | | | PDT | | results section. | + +--------+ + + + | INR | Urgent | 07/10/2018 | | Results for this | | | | 5:47 PM | | procedure are in the | | | | PDT | | results section. | + +--------+ + + + | BASIC METABOLIC SET | Urgent | 07/10/2018 | | Results for this | | (NA, K, CL, TCO2, | | 5:47 PM | | procedure are in the | | BUN, CR, GLU, CA) | | PDT | | results section. | + +--------+ + + + | C-REACTIVE PROTEIN | Urgent | 07/10/2018 | | Results for this | | | | 5:47 PM | | procedure are in the | | | | PDT | | results section. | + +--------+ + + + | CBC ONLY | Urgent | 07/10/2018 | | Results for this | | | | 5:47 PM | | procedure are in the | | | | PDT | | results section. | + +--------+ + + + | APTT (ACT. PART. | Urgent | 07/10/2018 | | Results for this | | THROMBO TIME) | | 5:47 PM | | procedure are in the | | | | PDT | | results section. | + +--------+ + + + | SEDIMENTATION RATE | Urgent | 07/10/2018 | | Results for this | | | | 5:47 PM | | procedure are in the | | | | PDT | | results section. | + +--------+ + + + | CT HEAD WWO CONTRAST | Urgent | 07/10/2018 | | Results for this | | | | 2:06 PM | | procedure are in the | | | | PDT | | results section. | + +--------+ + + + documented in this encounter Results OPERATION RECORD (07/11/2018 3:24 PM PDT) + + | Procedure Note | + + | Adolfo Urbina MD - 07/11/2018 3:24 PM PDT Date of Service: 07/11/2018 Attending | | Surgeon: Adolfo Urbina MD Tailor'S Aide(s): Kari Cavazos MD | | Preoperative Diagnoses: 1. Wound dehiscence. 2. 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 Wound dehiscence. 2. 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 Explant of right Synthes custom | | cranioplasty. 2. Wound revision.Anesthesia: General.Estimated Blood Loss: 10 mL for | | our portion.Graft Implant: Cranioplasty flap was explanted.Specimens: One swab on the | | epidural space sent for culture.Complications: None.Findings: Cranioplasty explanted | | without issue.Fluids: EBL 10 mL.Disposition: PACU then acute care. Benavides was never | | replaced. Diet advanced to regular. DVT prophylaxis contraindicated until postop day | | 2. Antibiotic plan: Final duration to be determined. Glycemic control: Subcutaneous | | by sliding scale. Dressing care: Removal on postop day 1. Activity restrictions: Head | | of bed 30 degrees.Imaging: No postop imaging.Initial Surgical Contact: Neurosurgery | | at pager [phone].Indications For Procedure: Please see Epic for full details, but | | briefly, Marisela Bell is a 68-year-old woman who had a previous high-grade | | subarachnoid hemorrhage in 2007. 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 | | She subsequently was lost to followup and then re-presented in 2015 with resorption of | | her bone flap and loose hardware. She had underwent synthetic cranioplasty at that | | time, but had exposed cranioplasty in November 2017, which was then explanted. She then | | returned our clinic desiring cranioplasty for cosmetic reasons. We did drug and alcohol counselor her that | | she may require a free flap for tissue coverage after cranioplasty due to her very thin | | skin. In addition, she continues to smoke despite recommendations to stop smoking. | | She then subsequently underwent a cranioplasty in April 2018. The wound was able to be | | closed primarily. Unfortunately, she then re-presented back to us with an exposed | | cranioplasty in the center of her cranioplasty distant from the incision. She was | | therefore indicated for explant of the cranioplasty. A full PARQ discussion was held | | with the patient. We enlisted the ENT team for help with closure of her complex wound. | | Full PARQ discussion was held with her. Consent was signed and placed in chart prior | | to proceeding.Procedure In Detail: The patient was identified in the preoperative | | holding area she was brought back to the operating room on [facility]. She was | | intubated without difficulty by the anesthesia team. Eyes were taped shut using | | Tegaderm. She was positioned supine with her head turned. Her previous incision was | | identified and shaved. We then prepped using Hibiclens and ChloraPrep, as she had an | | iodine allergy. We did not inject local anesthesia. We did not give Ancef as we were | | about to obtain cultures. We performed a team pause, where we verified this was the | | correct patient and correct position, and that we were about to perform the correct | | procedure. A #10 blade was used to perform skin incision. We then elevated the skin | | flap easily. We removed the cranium on top of the bur hole covers and then removed the | | screws and dog bones bones from her skull, thus effectively removing the cranioplasty | | from her surrounding skull. This was then handed to the back table. We used a culture | | swab to swab the epidural space. This was sent out for culture. Following that, we | | then handed over the case to Dr. White who then performed closure. At the end of our | | portion of the case, all needle counts, sponge counts, and instrument counts were | | correct x2.Florence Emmanuel, JPatriciaG/MODLDD: 07/11/2018 15:04:23DT: 07/11/2018 | | 15:24:02Job #: [id number] | | | |Indications For Procedure: Please see [facility] for full details, but briefly, Marisela Bell i s a 68-year-old woman who had a previous high-grade subarachnoid hemorrhage in 2007. She posadas d a postoperative hydrocephalus | |which required a ventriculoperitoneal shunt, and a left superficial neck abscess that requi red drainage. She subsequently was lost to followup and then re-presented in 2015 with reso rption of her bone flap and loose | |hardware. She had underwent synthetic cranioplasty at that time, but had exposed craniopla sty in November 2017, which was then explanted. She then returned our clinic desiring cranio plasty for cosmetic reasons. We did | |drug and alcohol counselor her that she may require a free flap for tissue coverage after cranioplasty due to her very thin skin. In addition, she continues to smoke despite recommendations to stop smo cayetano. She then subsequently | |underwent a cranioplasty in April 2018. The wound was able to be closed primarily. Unfort unately, she then re-presented back to us with an exposed cranioplasty in the center of her cranioplasty distant from the | |incision. She was therefore indicated for explant of the cranioplasty. A full PARQ discus gabriel was held with the patient. We enlisted the ENT team for help with closure of her compl ex wound. Full PARQ discussion was held | |with her. Consent was signed and placed in chart prior to proceeding. | | | |Procedure In Detail: The patient was identified in the preoperative holding area she was b rought back to the operating room on [facility]. She was intubated without difficult y by the anesthesia team. | |Eyes were taped shut using Tegaderm. She was positioned supine with her head turned. Her previous incision was identified and shaved. We then prepped using Hibiclens and ChloraPrep , as she had an iodine allergy. We | |did not inject local anesthesia. We did not give Ancef as we were about to obtain cultures . We performed a team pause, where we verified this was the correct patient and correct pos ition, and that we were about to perform the correct procedure. | | | |A #10 blade was used to perform skin incision. We then elevated the skin flap easily. We removed the cranium on top of the bur hole covers and then removed the screws and dog bones bones from her skull, thus | |effectively removing the cranioplasty from her surrounding skull. This was then handed to the back table. We used a culture swab to swab the epidural space. This was sent out for siobhan moses. Following that, we then | |handed over the case to Dr. White who then performed closure. At the end of our portion of t he case, all needle counts, sponge counts, and instrument counts were correct x2. | | | | | | | |Kari Cavazos MD | | | | | |Adolfo Urbina MD | |JLG/MODL | | | | | | /[id number] | + + CAPILLARY BLOOD GLUCOSE (NO CHG), POC (07/11/2018 2:23 PM PDT) + +---------+ + + + | Component | Value | Ref Range | Performed | Pathologist | | | | | At | Signature | + +---------+ + + + | BLOOD | 117 (H) | 60 - 99 mg/dL | [facility] - | | | GLUCOSE, | | | [facility] | | | POC | | | [facility] | | | | | | OF CARE | | | | | | TESTS | | + +---------+ + + + + + | Specimen | + + | | + + + + + + + | Performing | Address | City/State/Zipcode | Phone Number | | Organization | | | | + + + + + | [facility] | [address] | [place], [place] | | | [facility] | [address] | [address] | | | TESTS | | | | + + + + + OPERATION RECORD (07/11/2018 2:21 PM PDT) + + | Procedure Note | + + | Ata White MD - 07/11/2018 2:21 PM PDT Date of Service: 07/11/2018 Attending | | Surgeon:MD Gloria Hansen was brought to | | the operating room, where general anesthesia was induced. She was orotracheally | | intubated, prepped and draped in usual manner. Surgical pause was | | performed.Preoperative Diagnosis: Exposed cranioplasty.Postoperative Diagnosis: | | Exposed cranioplasty.Operative Procedure: Removal of cranioplasty by Neurosurgical | | service, elevation of an anterior flap approximately 25 x 8 cm undermining with a | | galeatomy of the posterior incision approximately 25 x 3 x 5 cm and then advancement and | | closure of the craniotomy site.Description Of Procedure: She was brought to the | | operating room and the cranial incision was performed. We elevated the flap anteriorly. | | We then came down and came through the galea and divided this inferiorly so we could | | mobilize the anterior skin flap. This was done. We incised the galea and created a | | large skull anterior skin flap based on the forehead, coming down to the supraorbital | | rims and down over the temporalis and into the fossa. Once we had mobilized this we | | then went posteriorly, identified the galea 3 cm behind the incision, elevated in a | | subperiosteal fashion and then incised the galea and elevated the posterior scalp | | anteriorly. This allowed us to close the wound with 3-0 Vicryl. We were able to put | | together the defect, which was approximately 4 x 2 cm. This was closed using nylons in | | a single layer due to the thinness of the scalp. The closure looked good at the end. | | She was cleaned up, woken up, extubated and sent to the recovery room.Ata White | | MELI/KATHERINED: 07/11/2018 14:09:26DT: 07/11/2018 14:21:09Job #: [id number] | | | | | |Ata White MD | |CHANDRIKA/NGUYEN | | | | | | /[id number] | + + CULTURE, FUNGAL EXCEPT BLOOD, SKIN, HAIR, NAIL (07/11/2018 12:31 PM PDT) + + | Specimen | + + | Swab - Brain | | structure (body | | structure) | + + + + + | Narrative | Performed At | + + + | Culture Report: No fungus isolated at 3 weeks. | [facility] | | | [facility] | | | [place] | + + + + + + + + | Performing | Address | City/State/Zipcode | Phone Number | | Organization | | | | + + + + + | [facility] | [address] | [place] [address] | | | [place] | | | | + + + + + CULTURE, WOUND DEEP W/ ANAEROBE (07/11/2018 12:31 PM PDT) + + + + + + | Component | Value | Ref Range | Performed | Pathologist | | | | | At | Signature | + + + + + + | CULTURE | Staphylococcus | | [facility] | | | RESULT | epidermidis (A) | | [facility] | | | | | | [place] | | + + + + + + + + | Specimen | + + | Swab - Brain | | structure (body | | structure) | + + + + + | Narrative | Performed At | + + + | Culture Report: Rare Staphylococcus epidermidis No anaerobic | [facility] - | | organisms isolated Gram Stain: No squamous epithelial cells No | [facility] - | | polymorphonuclear cells No organisms seen | [place] | + + + + + + + + | Organism | Antibiotic | Method | Susceptibility | + + + + + | Staphylococcus | Cefazolin | SUSCEPTIBILITY-GRANT | Resistant | | epidermidis | | | | + + + + + | Staphylococcus | Clindamycin | SUSCEPTIBILITY-GRANT | Sensitive | | epidermidis | | | | + + + + + | Staphylococcus | Erythromycin | SUSCEPTIBILITY-GRANT | Sensitive | | epidermidis | | | | + + + + + | Staphylococcus | Oxacillin | SUSCEPTIBILITY-GRANT | Resistant | | epidermidis | | | | + + + + + | Staphylococcus | Trimethoprim/Sulfa | SUSCEPTIBILITY-GRANT | Sensitive | | epidermidis | | | | + + + + + | Staphylococcus | Tetracycline | SUSCEPTIBILITY-GRANT | Sensitive | | epidermidis | | | | + + + + + | Staphylococcus | Vancomycin | SUSCEPTIBILITY-GRANT | Sensitive | | epidermidis | | | | + + + + + + + + + + | Performing | Address | City/State/Zipcode | Phone Number | | Organization | | | | + + + + + | [facility] | [address] | [place] [address] | | | [place] | | | | + + + + + CULTURE, AFB (ALL SPEC TYPES EXCEPT BLOOD) (07/11/2018 12:31 PM PDT) + + | Specimen | + + | Swab - Brain | | structure (body | | structure) | + + + + + | Narrative | Performed At | + + + | Culture Report: No acid fast bacteria isolated at 6 weeks. AFB | [facility] | | Smear: AFB not detected | [facility] - | | | [place] | + + + + + + + + | Performing | Address | City/State/Zipcode | Phone Number | | Organization | | | | + + + + + | [facility] | [address] | [place] [address] | | | [place] | | | | + + + + + CARDIOLOGY (07/11/2018 12:00 AM PDT) + + + | Narrative | Performed At | + + + | | | + + + CBC (HEMOGRAM) ONLY (07/10/2018 5:47 PM PDT) + + + + + + | Component | Value | Ref Range | Performed | Pathologist | | | | | At | Signature | + + + + + + | WHITE CELL | 7.32 | 3.50 - 10.80 | [facility] | | | COUNT | | K/cu mm | LABORATORY | | | | | | SERVICES, | | | | | | CORE | | + + + + + + | RED CELL | 4.31 | 4.00 - 5.20 | [facility] | | | COUNT | | M/cu mm | LABORATORY | | | | | | SERVICES, | | | | | | CORE | | + + + + + + | HEMOGLOBIN | 13.6 | 12.0 - 16.0 | [facility] | | | | | g/dL | LABORATORY | | | | | | SERVICES, | | | | | | CORE | | + + + + + + | HEMATOCRIT | 40.7 | 36.0 - 46.0 % | [facility] | | | | | | LABORATORY | | | | | | SERVICES, | | | | | | CORE | | + + + + + + | MCV | 94.4 | 80.0 - 100.0 fL | [facility] | | | | | | LABORATORY | | | | | | SERVICES, | | | | | | CORE | | + + + + + + | MCHC | 33.4 | 32.0 - 36.0 | [facility] | | | | | g/dL | LABORATORY | | | | | | SERVICES, | | | | | | CORE | | + + + + + + | RDW SD | 50.2 (H) | 35.1 - 46.3 fL | [facility] | | | | | | LABORATORY | | | | | | SERVICES, | | | | | | CORE | | + + + + + + | PLATELET | 253 | 150 - 400 K/cu | [facility] | | | COUNT | | mm | LABORATORY | | | | | | SERVICES, | | | | | | CORE | | + + + + + + | MPV | 10.1 | 9.7 - 12.3 fL | [facility] | | | | | | LABORATORY | | | | | | SERVICES, | | | | | | CORE | | + + + + + + | NRBC% | 0.0 | 0.0 - 0.3 % | [facility] | | | | | | LABORATORY | | | | | | SERVICES, | | | | | | CORE | | + + + + + + | NRBC# | 0.00 | 0.00 - 0.02 | [facility] | | | | | K/cu mm | LABORATORY | | | | | | SERVICES, | | | | | | CORE | | + + + + + + + + | Specimen | + + | Blood - Blood | | (substance) | + + + + + + + | Performing | Address | City/State/Zipcode | Phone Number | | Organization | | | | + + + + + | [facility] | [address] | [place] [address] | | | SERVICES, CORE | [address] | | | + + + + + SEDIMENTATION RATE (07/10/2018 5:47 PM PDT) + +-------+ + + + | Component | Value | Ref Range | Performed | Pathologist | | | | | At | Signature | + +-------+ + + + | SEDIMENTATI | 11 | 0 - 30 mm/hr | [facility] | | | ON RATE | | | LABORATORY | | | | | | SERVICES, | | | | | | CORE | | + +-------+ + + + + + | Specimen | + + | Blood - Blood | | (substance) | + + + + + + + | Performing | Address | City/State/Zipcode | Phone Number | | Organization | | | | + + + + + | [facility] | [address] | [place] [address] | | | SERVICES, CORE | [address] | | | + + + + + C-REACTIVE PROTEIN (07/10/2018 5:47 PM PDT) + +-------+ + + + | Component | Value | Ref Range | Performed | Pathologist | | | | | At | Signature | + +-------+ + + + | C-REACTIVE | <2.9 | <10.0 mg/L | [facility] | | | PROTEIN | | | LABORATORY | | | | | | SERVICES, | | | | | | CORE | | + +-------+ + + + + + | Specimen | + + | Blood - Blood | | (substance) | + + + + + + + | Performing | Address | City/State/Zipcode | Phone Number | | Organization | | | | + + + + + | [facility] | [address] | [place] [address] | | | SERVICES, CORE | [address] | | | + + + + + APTT (ACT. PART. THROMBO TIME) (07/10/2018 5:47 PM PDT) + +-------+ + + + | Component | Value | Ref Range | Performed | Pathologist | | | | | At | Signature | + +-------+ + + + | APTT | 29.8 | 26.0 - 36.0 | [facility] | | | | | seconds | LABORATORY | | | | | | SERVICES, | | | | | | CORE | | + +-------+ + + + + + | Specimen | + + | Blood - Blood | | (substance) | + + + + + | Narrative | Performed At | + + + | APTT values for monitoring heparin therapy may be affected by | [facility] | | specimens processed >1 hour after collection. APTT Therapeutic Range: | LABORATORY | | (75 - 120) sec Heparin levels of | [facility] | | 0.35 - 0.7 U/mL | | + + + + + + + + | Performing | Address | City/State/Zipcode | Phone Number | | Organization | | | | + + + + + | [facility] | [address] | [place] [address] | | | [facility] | [address] | | | + + + + + INR (07/10/2018 5:47 PM PDT) + +-------+ + + + | Component | Value | Ref Range | Performed | Pathologist | | | | | At | Signature | + +-------+ + + + | INR | 1.01 | 0.90 - 1.20 INR | [facility] | | | | | | LABORATORY | | | | | | SERVICES, | | | | | | CORE | | + +-------+ + + + + + | Specimen | + + | Blood - Blood | | (substance) | + + + + + | Narrative | Performed At | + + + | INR Therapeutic ranges for full anticoagulation: INR for Venous | [facility] | | Thromboembolism (2.0 - 3.0) INR INR for most | LABORATORY | | patients with mech. valves (2.5 - 3.5) INR | [facility] | + + + + + + + + | Performing | Address | City/State/Zipcode | Phone Number | | Organization | | | | + + + + + | [facility] | [address] | [place] [address] | | | SERVICES, [place] | [address] | | | + + + + + BASIC METABOLIC SET (NA, K, CL, TCO2, BUN, CR, GLU, CA) (07/10/2018 5:47 PM PDT) + +---------+ + + + | Component | Value | Ref Range | Performed | Pathologist | | | | | At | Signature | + +---------+ + + + | GLUCOSE, | 90 | 70 - 99 mg/dL | [facility] | | | PLASMA | | | LABORATORY | | | (LAB) | | | SERVICES, | | | | | | CORE | | + +---------+ + + + | BUN, PLASMA | 16 | 6 - 20 mg/dL | [facility] | | | (LAB) | | | LABORATORY | | | | | | SERVICES, | | | | | | CORE | | + +---------+ + + + | CREATININE | 0.88 | 0.60 - 1.10 | [facility] | | | PLASMA | | mg/dL | LABORATORY | | | (LAB) | | | SERVICES, | | | | | | CORE | | + +---------+ + + + | EGFR | >60 | >60 mL/min | [facility] | | | - | | | LABORATORY | | | TOGOLESE | | | SERVICES, | | | | | | CORE | | + +---------+ + + + | EGFR NON | >60 | >60 mL/min | [facility] | | | -[facility]JANDRINA | | | LABORATORY | | | RICAN | | | SERVICES, | | | | | | CORE | | + +---------+ + + + | SODIUM, | 137 | 136 - 145 | [facility] | | | PLASMA | | mmol/L | LABORATORY | | | (LAB) | | | SERVICES, | | | | | | CORE | | + +---------+ + + + | POTASSIUM, | 4.2 | 3.4 - 5.0 | [facility] | | | PLASMA | | mmol/L | LABORATORY | | | (LAB) | | | SERVICES, | | | | | | CORE | | + +---------+ + + + | CHLORIDE, | 105 | 97 - 108 mmol/L | [facility] | | | PLASMA | | | LABORATORY | | | (LAB) | | | SERVICES, | | | | | | CORE | | + +---------+ + + + | TOTAL CO2, | 28 | 21 - 32 mmol/L | [facility] | | | PLASMA | | | LABORATORY | | | (LAB) | | | SERVICES, | | | | | | CORE | | + +---------+ + + + | CALCIUM, | 8.7 | 8.6 - 10.2 | [facility] | | | PLASMA | | mg/dL | LABORATORY | | | (LAB) | | | SERVICES, | | | | | | CORE | | + +---------+ + + + | ANION GAP | 4 | 4 - 11 mmol/L | [facility] | | | | | | LABORATORY | | | | | | SERVICES, | | | | | | CORE | | + +---------+ + + + | POTASSIUM | No Hemo | | [facility] | | | CMNT | | | LABORATORY | | | | | | SERVICES, | | | | | | CORE | | + +---------+ + + + + + | Specimen | + + | Blood - Blood | | (substance) | + + + + + | Narrative | Performed At | + + + | GFR is estimated using the MDRD equation recommended by the National | [facility] | | Kidney Disease Education Program. Estimated GFR Interpretive | LABORATORY | | Information: <60 mL/min/1.73 sq m Chronic Kidney | SERVICES, CORE | | Disease <15 mL/min/1.73 sq m Kidney Failure | | | Estimated GFR greater than 60 mL/min/1.73 sq m is of limited clinical | | | value. The MDRD equation is not valid in the following situations: - | | | Patients under 18 years of age - Severe malnutrition or obesity - | | | Vegetarian diet - Rapidly changing kidney function - Amputees, | | | paraplegics, or other muscle-wasting diseses | | + + + + + + + + | Performing | Address | City/State/Zipcode | Phone Number | | Organization | | | | + + + + + | [facility] | [address] | [place] [address] | | | SERVICES, CORE | [address] | | | + + + + + CT HEAD WWO CONTRAST (07/10/2018 2:06 PM PDT) + + | Specimen | + + | | + + + + + | Narrative | Performed At | + + + | EXAM: CT HEAD WITHOUT AND WITH CONTRAST HISTORY: Eval for | [facility] | | abscess underlying cranioplasty in the setting of wound dehiscence | RADIOLOGY VOICE | | COMPARISON: 05/14/2018 TECHNIQUE: CT of the head without and | RECOGNITION 2 | | with iodine based intravenous contrast. FINDINGS: BRAIN: | | | Redemonstration of right-sided synthetic pterional cranioplasty. Trace | | | hypoattenuating extra-axial fluid collection with small locules of | | | gas noted between the graft and underlying dura. Trace smooth dural | | | enhancement, similar to prior. No new extra-axial fluid collection. | | | Left greater than right frontal lobe encephalomalacia is similar to | | | prior. No acute infarction. Multiple suprasellar aneurysm clips are | | | redemonstrated. Unchanged ventricular caliber without acute | | | hydrocephalus. SOFT TISSUES: Resolution of subgaleal fluid and | | | air collection from prior exam. No new or enlarging enhancing scalp | | | fluid collection to suggest abscess. SKULL AND SKULL BASE: Surgical | | | changes of right synthetic pterional cranioplasty. Mastoids and middle | | | ears are unremarkable. FACE/ORBITS: Visualized portions are | | | unremarkable. PARANASAL SINUSES: Visualized portions are | | | unremarkable. IMPRESSION: Post surgical changes of right | | | synthetic pterional cranioplasty with trace fluid and gas between the | | | cranioplasty and underlying dura is non-specific. Findings may be | | | post-surgical, though infection is not entirely excluded, particularly | | | in the presence of gas. Smooth dural enhancement similar to prior | | | examination. No new extra-axial fluid collection or intraparenchymal | | | abnormality. Resolution of right subgaleal fluid collection. I | | | have personally reviewed the images and, if necessary, edited the | | | report. I agree with the report as now presented. Final | | | signature: Abhishek Gray MD 07/10/2018 8:53 PM Preliminary: | | | Brandon Roger MD 07/10/2018 2:59 PM Dictation initiated: Brandon Roger MD 07/10/2018 2:16 PM | | + + + + + | Procedure Note | + + | Service Account, Radiant Res In Interface - 07/10/2018 8:54 PM PDT EXAM: CT HEAD | | WITHOUT AND WITH CONTRAST HISTORY: Eval for abscess underlying cranioplasty in the | | setting of wound dehiscence COMPARISON: 05/14/2018 TECHNIQUE: CT of the head without | | and with iodine based intravenous contrast. FINDINGS: BRAIN: Redemonstration of | | right-sided synthetic pterional cranioplasty. Trace hypoattenuating extra-axial fluid | | collection with small locules of gas noted between the graft and underlying dura. Trace | | smooth dural enhancement, similar to prior. No new extra-axial fluid collection. Left | | greater than right frontal lobe encephalomalacia is similar to prior. No acute | | infarction. 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 Unchanged | | ventricular caliber without acute hydrocephalus. SOFT TISSUES: Resolution of subgaleal | | fluid and air collection from prior exam. No new or enlarging enhancing scalp fluid | | collection to suggest abscess.SKULL AND SKULL BASE: Surgical changes of right synthetic | | pterional cranioplasty. Mastoids and middle ears are unremarkable.FACE/ORBITS: | | Visualized portions are unremarkable.PARANASAL SINUSES: Visualized portions are | | unremarkable. IMPRESSION: Post surgical changes of right synthetic pterional | | cranioplasty with trace fluid and gas between the cranioplasty and underlying dura is | | non-specific. Findings may be post-surgical, though infection is not entirely excluded, | | particularly in the presence of gas. Smooth dural enhancement similar to prior | | examination. No new extra-axial fluid collection or intraparenchymal abnormality. | | Resolution of right subgaleal fluid collection. I have personally reviewed the images | | and, if necessary, edited the report. I agree with the report as now presented. Final | | signature: Abhishek Gray MD 07/10/2018 8:53 PM Preliminary: Brandon Roger MD | | 07/10/2018 2:59 PM Dictation initiated: Brandon Roger MD 07/10/2018 2:16 PM | | | |I have personally reviewed the images and, if necessary, edited the report. I agree with th e report as now presented. | | | |Final signature: Abhishek Gray MD 07/10/2018 8:53 PM | |Preliminary: Brandon Roger MD 07/10/2018 2:59 PM | |Dictation initiated: Brandon Roger MD 07/10/2018 2:16 PM | + + + +---------+ + + | Performing | Address | City/State/Zipcode | Phone Number | | Organization | | | | + +---------+ + + | [facility] | | | | | VOICE RECOGNITION 2 | | | | + +---------+ + + documented in this encounter Visit Diagnoses + + | Diagnosis | + + | History of cranioplasty | + + | Dehiscence of operative wound, initial encounter | + + documented in this encounter Administered Medications + +--------+ +--------+------+------+ | Medication Order | MAR | Action | Dose | Rate | Site | | | Action | Date | | | | + +--------+ +--------+------+------+ | acetaminophen (TYLENOL) tablet | Given | 07/14/19 | 650 mg | | | | 650 mg 650 mg, oral, EVERY 4 | | 19 4:15 | | | | | HOURS NEEDED, Starting Mon | | PM PDT | | | | | 07/10/18 at 1645, Until Fri | | | | | | | 07/14/18 at 0038, mild pain, first | | | | | | | line, multimodal pain control | | | | | | + +--------+ +--------+------+------+ +---+---+ | | | +---+---+ + +-------+ +-------+---+---+ | atorvastatin (LIPITOR) tablet | Given | 07/14/19 | 80 mg | | | | 80 mg 80 mg, oral, DAILY, First | | 19 9:35 | | | | | dose on Tue07/10/18 at 1700, | | AM PDT | | | | | Until Discontinued | | | | | | + +-------+ +-------+---+---+ +-------+ +-------+---+---+ | Given | 07/13/19 | 80 mg | | | | | 19 9:20 | | | | | | AM PDT | | | | +-------+ +-------+---+---+ | Given | 07/12/19 | 80 mg | | | | | 19 9:13 | | | | | | AM PDT | | | | +-------+ +-------+---+---+ +---+---+ | | | +---+---+ + +---------+ +--------+---+---+ | iohexol (OMNIPAQUE) 350 mg | IV Push | 07/11/19 | 100 mL | | | | iodine/mL injection 100 mL 100 | | 19 2:45 | | | | | mL, intravenous, ONCE, 1 dose, | | PM PDT | | | | | 07/10/18 at 1445 | | | | | | + +---------+ +--------+---+---+ +---+---+ | | | +---+---+ + +-------+ +------+---+---+ | ipratropium-albuterol (DUO-NEB) | Given | 07/13/19 | 3 mL | | | | nebulizer solution 3 mL 3 mL, | | 19 10:53 | | | | | inhalation, TWICE DAILY, First | | AM PDT | | | | | dose on 07/10/18 at 2100, | | | | | | | Until Discontinued | | | | | | + +-------+ +------+---+---+ +-------+ +------+---+---+ | Given | 07/11/19 | 3 mL | | | | | 19 9:52 | | | | | | PM PDT | | | | +-------+ +------+---+---+ + +---+ | | | + +---+ | ipratropium-albuterol (DUO-NEB) | | | nebulizer solution 3 mL 3 mL, | | | inhalation, EVERY 4 HOURS | | | NEEDED, Starting 07/12/18 at | | | 1100, Until Tue07/14/18 at 0038, | | | dyspnea/SOB | | + +---+ | | | + +---+ + +-------+ +-------+---+---+ | metoprolol succinate | Given | 07/14/19 | 50 mg | | | | (TOPROL-XL) tablet 50 mg 50 mg, | | 19 9:35 | | | | | oral, DAILY, First dose on Mon | | AM PDT | | | | | 07/10/18 at 1345, Until | | | | | | | Discontinued | | | | | | + +-------+ +-------+---+---+ +-------+ +-------+---+---+ | Given | 07/13/19 | 50 mg | | | | | 19 9:20 | | | | | | AM PDT | | | | +-------+ +-------+---+---+ | Given | 07/12/19 | 50 mg | | | | | 19 9:13 | | | | | | AM PDT | | | | +-------+ +-------+---+---+ +---+---+ | | | +---+---+ + + + +---------+---+--------+ | nicotine (NICOTROL) 21 mg/24 hr | Applied | 07/14/19 | 1 patch | | Right | | patch 1 patch 1 patch, | Patch | 19 9:35 | | | Arm | | transdermal, DAILY, First dose on | | AM PDT | | | | | 07/11/18 at 0900, Until | | | | | | | Discontinued | | | | | | + + + +---------+---+--------+ + + +---------+---+ + | Applied Patch | 07/13/19 | 1 patch | | Left Arm | | | 19 9:19 | | | | | | AM PDT | | | | + + +---------+---+ + | Applied Patch | 07/12/19 | 1 patch | | Right | | | 19 9:13 | | | Arm | | | AM PDT | | | | + + +---------+---+ + + +---+ | | | + +---+ | nicotine polacrilex (COMMIT) | | | lozenge 4 mg 4 mg, oral, EVERY 1 | | | HOUR NEEDED, Starting Mon | | | 07/10/18 at 1918, Until Fri | | | 07/14/18 at 0038, Withdrawal | | | symptoms | | + +---+ | | | + +---+ + +-------+ +---------+---+---+ | promethazine (PHENERGAN) | Given | 07/12/19 | 6.25 mg | | | | injection 6.25-12.5 mg 6.25-12.5 | | 19 2:55 | | | | | mg, intravenous, POSTPROCEDURE | | PM PDT | | | | | PRN, 1 dose, Starting Tue07/11/18 | | | | | | | at 1258, Until Tue07/11/18 at | | | | | | | 1455, nausea/vomiting, 1st line | | | | | | + +-------+ +---------+---+---+ +---+---+ | | | +---+---+ + +-------+ +-------+---+---+ | spironolactone (ALDACTONE) | Given | 07/14/19 | 25 mg | | | | tablet 25 mg 25 mg, oral, DAILY, | | 19 9:35 | | | | | First dose on Tue07/10/18 at | | AM PDT | | | | | 1700, Until Discontinued | | | | | | + +-------+ +-------+---+---+ +-------+ +-------+---+---+ | Given | 07/13/19 | 25 mg | | | | | 19 9:20 | | | | | | AM PDT | | | | +-------+ +-------+---+---+ | Given | 07/12/19 | 25 mg | | | | | 19 9:12 | | | | | | AM PDT | | | | +-------+ +-------+---+---+ +---+---+ | | | +---+---+ documented in this encounter
--- OUTSIDE RECORDS SUMMARY | ~2019-10-16 | XMS | Encounter Summary ---
Demographics + + + | Address | [address] | | | [place] [address] | + + + | Home Phone | | + + + | Preferred Language | Unknown | + + + | Marital Status | | + + + | Protestant Affiliation | Unknown | + + + | Race | White | + + + | Ethnic Group | Not or | + + + Author + + + | Author | [facility] | | | and [place] | + + + | Organization | [facility] | | | and [...] Team Providers + +------+ + | Care Food Prep Worker Name | Role | Phone | + +------+ + | Lance Pandya DO | PCP | | + +------+ + Encounter Details +--------+---------+ + + + | Date | Type | Department | Care Team | Description | +--------+---------+ + + + | 09/17/ | Office | [facility] | Chana Luu, | Coronary | | 2016 | Visit | CARDIOLOGY [address] | MD [address] | atherosclerosis due | | | | [place], | [place], [place] | to lipid rich plaque | | | | [place] [address] | [id number] | (Primary Dx); | | | | [phone] | | Fatigue, unspecified | | | | | | type; NSTEMI | | | | | | (non-ST elevated | | | | | | myocardial | | | | | | infarction) (HCC) | +--------+---------+ + + + Social History + +-------+ [...] + + + | Blood Pressure | 126/84 | 09/18/2015 9:49 AM | | | | | PDT | | + + + + + | Pulse | 85 | 09/18/2015 9:49 AM | | | | | PDT | | + + + + + | Temperature | - | - | | + + + + + | Respiratory Rate | 18 | 09/18/2015 9:49 AM | | | | | PDT | | + + + + + | Oxygen Saturation | - | - | | + + + + + | Inhaled Oxygen | - | - | | | Concentration | | | | + + + + + | Weight | 51.3 kg (113 lb) | 09/18/2015 9:49 AM | | | | | PDT | | + + + + + | Height | 149.9 cm (4' 11") | 09/18/2015 9:49 AM | | | | | PDT | | + + + + + | Body Mass Index | 22.82 | 09/18/2015 9:49 AM | | | | | PDT [...] documented as of this encounter Progress Notes Chana Luu MD - 09/18/2015 10:00 AM PDTFormatting of this note might be different fr om the original. PATIENT NAME: Cielo Bell : 1950: AGE: 65 y.o. PRIMARY CARE: Lance Pandya OUTPATIENT FOLLOW UP VISIT Date of Service: 09/18/2015 HISTORY OF PRESENT ILLNESS: Cielo Bell is a 65 y.o. female with a history of Anterior PR and stent implan tation. She is being seen today for follow up. She was last seen 06/17/15. She subsequently became overwhelmed and quit all of her medicat ions and she is currently on NOTHING. Her granddaughter is helping her set up a reminder in her phone that will help her remember. I offered to change her to all once a day meds - sh e does not want to do that. She has no chest pain. No dyspnea. She uses O2 at night. She continues to smoke. She is thinking about quitting. She has not followed up with the [facility] neurosurgery and has no pending apt's. The last note from there: Contact Dr Bell to discuss the periop management of this patient Schedule Surgery for removal of exposed screw of the forehead under local anaesthesia and s eadation I spent 30 minutes with the patient. Greater than 50% of the time was spent counseling the patient regarding the management plan. Rickie Lane MD NEUROSURGERY AT [facility] [id number] Mailcode: [id number] [phone] Clinic says she is a patient of Dr Adam - I spoke with them and they are going to contact her directly regarding scheduling the apt and what to take. They say she has been tough to get a hold of. The have been trying to get her to schedule. MEDICAL, SURGICAL, AND PERSONAL HISTORY Past Medical, Surgical, Family, and Social History are reviewed in EPIC. CURRENT PROBLEMS Patient Active Problem List Diagnosis Smoking addiction Smoking addiction Smoking addiction Smoking addiction NSTEMI (non-ST elevated myocardial infarction) COPD (chronic obstructive pulmonary disease) PVD (peripheral vascular disease) H/O cerebral aneurysm repair GI bleed Cough due to bronchospasm CAD (coronary artery disease), [place] coronary artery CURRENT MEDICATIONS No current outpatient prescriptions on file. She quit all of her medications No current facility-administered medications for this visit. she does take duo neb occasionally ALLERGIES Allergies Allergen Reactions Ciprofloxacin Nausea And Vomiting Codeine Nausea And Vomiting [place] Hives Povidone Iodine Hives Sulfa Antibiotics Other reaction(s): Erythema ROS No chest pain and no dyspnea Occasional cough No bleeding or bruising Weight down 5 lbs without diet Complete 10 system review is otherwise negative OBJECTIVE: PHYSICAL EXAM BP 126/84 mmHg | Pulse 85 | Resp 18 | Ht 1.499 m (4' 11") | Wt 51.256 kg (113 lb) | BMI 22. 81 kg/m2 Physical Exam Constitutional: She is oriented to person, place, and time. She appears well-developed. Eyes: Conjunctivae are normal. Neck: Normal range of motion. No JVD present. No thyromegaly present. Cardiovascular: Normal rate and intact distal pulses. Murmur heard. Pulmonary/Chest: Effort normal. No stridor. No respiratory distress. She has no wheezes. Sh e has no rales. She exhibits no tenderness. Abdominal: Soft. Bowel sounds are normal. She exhibits no distension and no mass. There is no tenderness. There is no rebound and no guarding. Lymphadenopathy: She has no cervical adenopathy. Neurological: She is alert and oriented to person, place, and time. Skin: Skin is warm and dry. Psychiatric: She has a normal mood and affect. Her behavior is normal. grade 1/6 CANDE no diastolic murmur or rub LAB RESULTS reviewed during visit today primarily from [facility]: LIPID Lab Results Component Value Date CHOL 205* 12/28/2014 TRIG 143 12/28/2014 HDL 46 12/28/2014 LDL 130 12/28/2014 CHOLHDL 4.5 12/28/2014 CHEMISTRY Lab Results Component Value Date GLU 92 06/17/2015 NA 141 06/17/2015 K 4.1 06/17/2015 CL 105 06/17/2015 CO2 25 06/17/2015 CALCIUM 9.4 06/17/2015 ALKPHOS 75 12/28/2014 AST 482* 12/28/2014 ALT 93* 12/28/2014 BILITOT 0.8 12/28/2014 CREA 0.85 06/17/2015 BUN 10 06/17/2015 HEMATOLOGY Lab Results Component Value Date WBC 9.2 06/17/2015 HGB 15.9 06/17/2015 HCT 47.2* 06/17/2015 PLT 250 06/17/2015 I reviewed records from [facility] for Neurosurgery . ASSESSMENT: S/P STEMI 12/28/2014 HTN - normotensive today NSTEMI (non-ST elevated myocardial infarction) 12/28/2014 Yes COPD (chronic obstructive pulmonary disease) 12/28/2014 Yes PVD (peripheral vascular disease) 12/28/2014 Yes H/O cerebral aneurysm repair 12/28/2014 Yes Smoking addiction PLAN: I won't try to put her back on all of her medications I will resume Beta mukul - change to Toprol 25 mg once a day, Pravachol 20 mg once a day then she needs to ask Neurosurgery about ASA 81 mg a day and Plavix (clopidogrel) 75 mg a da y. I called and spoke to a couple of people at [facility]. No contraindication to the proposed surgery - she is at some increased risk due to h/o PR a nd her quitting her medications She is currently asymptomatic from a cardiac standpoint and does not require further testin g at this time - of note this is a minor surgery Follow up with me in 6 months Electronically signed by: Chana Luu MD [facility] 09/18/2015 Portions of this chart may have been created with [employer] voice recognition software. Occasi onal wrong-word or sound-alike substitutions may have occurred due to the inherent ortez itations of voice recognition software. Please read the chart carefully and recognize, using context, where these substitutions have occurred. documented in this encounter Plan of Treatment Not on filedocumented as of this encounter Procedures + +--------+ + + + | Procedure Name | Priori | Date/Time | Associated Diagnosis | Comments | | | ty | | | | + +--------+ + + + | ECG - EXTERNAL SCAN | | 10/27/2015 | | Results for this | | | | 12:00 AM | | procedure are in the | | | | PDT | | results section. | + +--------+ + + + documented in this encounter Results ECG - EXTERNAL SCAN (10/27/2015 12:00 AM PDT) + + + | Narrative | Performed At | + + + | Ordered by an | | | unspecified provider. | | + + + documented in this encounter Visit Diagnoses + + | Diagnosis | + + | Coronary atherosclerosis due to lipid rich plaque - Primary | + + | Fatigue, unspecified type | + + | NSTEMI (non-ST elevated myocardial infarction) (HCC) Acute myocardial infarction, | | subendocardial infarction, episode of care unspecified | + + documented in this encounter
--- OUTSIDE RECORDS SUMMARY | ~2019-10-16 | XMS | Encounter Summary ---
Demographics + + + | Address | [address] | | | [place] [address] | + + + | Home Phone | | + + + | Preferred Language | Unknown | + + + | Marital Status | | + + + | Yarsanism Affiliation | MET | + + + [...] Team Providers + +------+ + | Care Machine Splitter Name | Role | Phone | + +------+ + | Mary Vazquez PA-C | PCP | | + +------+ + Encounter Details +--------+ + + + + | Date | Type | Department | Care Team | Description | +--------+ + + + + | 05/23/ | Telephone | Neurosurgery at | Marni Manning | | | 2019 | | [facility] [id number] | JORGE LUIS Hannon [address] [facility] | | | | | [facility] for | [facility] | | | | | [facility] and He[facility], | [place], [place] | | | | | [address] | [address] | | | | | floor [place], [place] | [phone] | | | | | [address] | | | | | | [phone] | | | +--------+ + + + [...] Telephone Encounter - Nettie Jaramillo PA - 07/14/2018 11:[address] Nicolas, she wi ll schedule the patient in her clinic as soon as possible. Unable to determine if infection is truly contaminate -- only one epidural swab was obtained and also the open wound was ex posed to the environment for undetermined amount of time. Further recommendations janak adrianKimberli Left VM on Ms Bell's cell letting her know that ID office will be contacting her to sche dule a visit. elep veronica Encounter - Nettie Jaramillo PA - 07/14/2018 8:35 AM PDTPatient [facility] undergone cranioplasty explant and wound closure by ENT. One int ra operative culture was obtained of the epidural space and findings thus far are remarkable for staph epidermidis. The patient demonstrated no systemic signs/symptoms of infection an d there is no documentation of intra operative findings suggestive of overt infection. Message to Dr Saskia Nicolas, ID attending, who has seen the patient in the past for MSSA cran ial wound infection to provide an update on the patient's condition. Will continue to follow preliminary culture. elephone Encounter - Marni Manning PA-C - 07/13/2018 10:5 7 AM PDTNeed to f/u intra-op cx. Electronically signed by Marni Manning PA-C at 2018 10:57 AM PDTdocumented in this encounter Plan of Treatment Not on filedocumented as of this encounter Visit Diagnoses Not on filedocumented in this encounter"
--- OUTSIDE RECORDS SUMMARY | ~2019-10-16 | XMS | Encounter Summary ---
Demographics + + + | Address | [address] | | | [place] [address] | + + + | Home Phone | | + + + | Preferred Language | Unknown | + + + | Marital Status | | + + + | Anabaptism Affiliation | Unknown | + + + [...] Team Providers + +------+ + | Care Shrimp Header Name | Role | Phone | + +------+ + | Lance Pandya DO | PCP | | + +------+ + Encounter Details +--------+ + + + + | Date | Type | Department | Care Team | Description | +--------+ + + + + | 12/02/ | Hospital | C GENERIC IP | Conversion | Pain | | 2018 | Encounter | CONVERSION [address] | Transaction, | | | | | [address] | Provider Unknown | | | | | [place], [place] | [phone] | | | | | [address] | | | | | | [phone] | | | +--------+ + + + [...] + + + +---------+ + + | fentaNYL, PF, 50 | | | 0 | 09/08/19 | | | mcg/mL injection | | | | 17 | | + + + +---------+ + + | lisinopril | Take 5 mg by mouth | | 0 | 07/14/19 | | | (PRINIVIL, ZESTRIL) | once daily. | | | 18 | | | 5 mg tablet | | | | | | + + + +---------+ + + | metoprolol | Take 50 mg by mouth | | 0 | 11/04/19 | | | succinate | once daily. | | | 18 | | | (TOPROL-XL) 50 mg 24 | | | | | | | hr tablet | | | | | | + + + +---------+ + + | midazolam (VERSED) | | | 0 | 09/08/19 | | | 1 mg/mL SOLN | | | | 17 | | + + + +---------+ + [...] + + +---------+ + + | spironolactone | Take 25 mg by mouth | | 0 | 11/15/19 | | | (ALDACTONE) 25 mg | once daily. | | | 18 | | | tablet | | | [...] +--------+ + + + | CT HEAD WO CONTRAST | Routin | 12/02/2017 | | Results for this | | | e | 11:15 PM | | procedure are in the | | | | PDT | | results section. | + +--------+ + + + documented in this encounter Results CT Head wo Contrast (12/02/2017 11:15 PM PDT) + + | Specimen | + + | | + + + + + | Narrative | Performed At | + + + | This is a non-reportable procedure without a radiologist report and | | | is used for image storage only | | + + + + + | Procedure Note | + + | Manny Cox - 10/04/2018 12:46 PM PDT This is a non-reportable procedure | | without a radiologist report and isused for image storage only | + + documented in this encounter Visit Diagnoses + + | Diagnosis | + + | Pain Generalized pain | + + documented in this encounter"
--- OUTSIDE RECORDS SUMMARY | ~2019-10-16 | XMS | Encounter Summary ---
Demographics + + + | Address | [address] | | | [place] [address] | + + + | Home Phone | | + + + | Preferred Language | Unknown | + + + | Marital Status | | + + + | Samaritan Affiliation | MET | + + + | Race | White | + + + | Ethnic Group | Not or | + + + Author + + + | Author | [facility] | + + + | Organization | [facility] | + + + | Address [...] Team Providers + +------+ + | Care Nurses Supervisor Name | Role | Phone | + +------+ + | No Pcp Per Patient | PCP | Unavailable | + +------+ + Reason for Visit + + + | Reason | Comments | + + + | Postoperative visit | | + + + Other (Routine) +--------+--------+ + + + + | Status | Reason | Specialty | Diagnoses / | Referred By | Referred To | | | | | Procedures | Contact | Contact | +--------+--------+ + + + + | Closed | | Neurological | Diagnoses | Jed, | Cecile, | | | | Surgery | Acquired | Antoinette Gomez, | MD [place] | | | | | skull defect | ,PhD [address] | [address] | | | | | Procedures | [address] | [address] | | | | | ME REPAIR | [facility] | [place], [place] | | | | | SKULL | Rd | [address] | | | | | DEFECT,UP TO | [place], [place] | Phone: | | | | | 5CM | [address] | [phone] | | | | | | Phone: | Fax: | | | | | | [phone] | [phone] | | | | | | Fax: | | | | | | | [phone] | | +--------+--------+ + + + + Encounter Details +--------+---------+ + + + | Date | Type | Department | Care Team | Description | +--------+---------+ + + + | 12/23/ | Office | Neurosurgery at | Nettie Jaramillo | SAH (subarachnoid | | 2018 | Visit | [facility] [address] | [place], [place] [address] | hemorrhage) (HCC) | | | | [facility] for | [facility] [address] | (Primary Dx); Acute | | | | [facility], | [place], [place] | osteomyelitis of | | | | Building | [address] | cranium (HCC) | | | | floor [place], [place] | [phone] | | | | | [address] | | | | | | [phone] | | | +--------+---------+ + + + [...] + + + | Blood Pressure | 109/65 | 12/23/2017 12:34 PM | | | | | PDT | | + + + + + | Pulse | 75 | 12/23/2017 12:34 PM | | | | | PDT | | + + + + + | Temperature | 36.6 C (97.9 F) | 12/23/2017 12:34 PM | | | | | PDT [...] + + + + | Weight | 49.5 kg (109 lb 2 | 12/23/2017 12:34 PM | | | | oz) | PDT | | + + + + + | Height | - | - | | + + + + + | Body Mass Index | 22.04 | 12/23/2017 10:29 AM | | | | | PDT [...] documented as of this encounter Progress Notes Nettie Jaramillo PA - 12/23/2017 12:15 PM PDT NEUROLOGICAL SURGERY PROGRESS NOTE-POST OP Author: RUBEN MULLINSC Attending: MAGNOLIA DIEGO MD Subjective: Cielo Bell is a 67 y.o. 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 She was discharged to home with PICC line and ceft riaxone for six weeks under the direction of our ID service. Ms Bell presents today with her daughter and son. She was [facility]. She denies any problems with the surgical wound and is anxious to get genoveva/sutu res removed. She denies problems tolerating antibiotics; no fevers. She has quit smoking si nce her hospitalization and is quite proud of this accomplishment. She does state that she has driven her car recently and was unaware she was not to do so. 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 s/p NSTEMI 12/27/2014; status post stent placement in the mid LAD Chronic pain Continuous tobacco abuse COPD on oxygen at night CVA (cerebral vascular accident) ([facility]) 2007 Essential hypertension GERD (gastroesophageal reflux disease) Goiter MRSA (methicillin resistant staph aureus) culture positive post cariotomy for SAH Otitis media recent abx preadmit Subarachnoid hemorrhage due to ruptured aneurysm ([facility]) 2007 Tobacco dependence acetaminophen 325 mg oral tablet, Take 1-2 tablets by mouth every six hours as needed for m oderate pain. aspirin EC 81 mg oral tablet,delayed release (DR/EC), Take 1 tablet by mouth once daily. Do not restart aspirin until 2 weeks after surgery-12/20 atorvastatin 80 mg oral tablet, Take 80 mg by mouth once daily at bedtime. bisacodyl 10 mg rectal suppository, Unwrap and insert 1 suppository rectally once daily as needed (2nd line for no BM in past 2 days or if not response to MIRALAX or if unable to tole rate oral). cefTRIAXone intravenous recon soln, Inject 2 g into the vein (IV) every twenty-four hours. To be admixed per infusion pharmacy standard policy and/or procedure. clopidogrel 75 mg oral tablet, Take 1 tablet by mouth once daily. Do not restart plavix unt il 2 weeks after surgery-12/20 lisinopril 5 mg oral tablet, Take 5 mg by mouth once daily. metoprolol succinate 50 mg oral tablet extended release 24 hr, Take 50 mg by mouth once chauncey ly. nicotine 21 mg/24 hr transdermal patch 24 hour, Apply 1 patch to skin once daily. ondansetron 8 mg oral tablet, Take 1 tablet by mouth every twelve hours as needed for nause a/vomiting. polyethylene glycol 17 gram oral powder in packet, Mix 1 packet and take orally two times d aily. Indications: constipation scopolamine 1 mg over 3 days transdermal patch 3 day, Apply 1 patch to skin every seventy-t wo hours. Indications: Prevention of Post-Operative Nausea and Vomiting senna-docusate 8.6-50 mg oral tablet, Take 2 tablets by mouth twice daily as needed (take t wice daily as long as you are taking narcotic pain medication). spironolactone 25 mg oral tablet, Take 25 mg by mouth once daily. Physical Exam: BP 109/65 | Pulse 75 | Temp 36.6 C (97.9 F) | Wt 49.5 kg (109 lb 2 oz) | BMI 22.04 kg/( m^2) General: Awake, alert and oriented to person, place and time HEENT: MOE, gaze conjugate, EOM's intact, faces symmetric Language: fluent and articulate without evidence of aphasia or dysarthria Motor: FORBES's Derm: RIGHT craniotomy wound genoveva removed; edges healing without areas of separation; RI GHT skin flap eschar noted; removed 2 vertical mattress sutures (discussed concern related t o sutures beneath eschar with attending in clinic, Dr Cha, who recommended leaving sutures in place for the time being). Abdominal sutures removed. IMAGING: No new imaging Assessment: Cielo Bell is a 67 y.o. year old F with complex neurosurgical his tory stemming from high grade SAH related to ACOMM rupture. Her most recent admission was du e to erosion of cranioplasty into right bone flap and subsequent MSSA wound infection. All h ardware was removed and she has been on IV ceftriaxone since her hospitalization with antici pated six weeks course (01/16/18). Plan: 1) Continue to monitor surgical incision and contact our office for increased pain, swell ing, redness, drainage, fevers. 2) Contact our office or present to [facility] Emergency Department for severe headache not rel ieved with pain medication, especially if also associated with nausea/emesis; altered mental status; other acute or worsening neurologic finding. 3) Dr Diego is currently out of the office, but I will discuss question Dr Nicolas had re garding imaging with noncontrast head CT locally before cessation of antibiotics. 4) Patient should continue to wear the helmet when out in public, walking, etc. 5) Encouraged ongoing nicotine cessation. 6) Will plan for patient to return to [facility] when appropriate to consider cranioplasty (syn thes). Appreciate Dr White's assistance with management of right cranial flap eschar as well a s skin/flap coverage when time to consider cranioplasty. ANSON MULLINS NEUROSURGERY AT [facility] [address] Mailcode: [place] [address] Addendum: Dr Diego would like a CT wwo contrast in follow up of infection. She does have history of rash/urticaria following betadine use (which contains iodine). Discussed pre-sheila tment with prednisone and Ms Bell would like to proceed with prednisone and CT. She would like order for CT to go to [facility] in [place], [place]. Will order external scan t hat should be done before 01/16/18. We are closed for Thanksgiving the /Tuesday befo re, so can have this done on 01/09 or 01/10. Dr Nicolas and Dr Diego aware of this plan. Avani ctronically signed by ANSON Martinez at 01/03/2018 1:42 PM PSTdocumented in this enc ounter Plan of Treatment Not on filedocumented as of this encounter Visit Diagnoses + + | Diagnosis | + + | SAH (subarachnoid hemorrhage) ([facility]) - Primary Subarachnoid hemorrhage | + + | Acute osteomyelitis of cranium (HCC) | + + documented in this encounter"
--- OUTSIDE RECORDS SUMMARY | ~2019-10-16 | XMS | Encounter Summary ---
Demographics + + + | Address | [address] | | | [place] [address] | + + + | Home Phone | | + + + | Preferred Language | Unknown | + + + | Marital Status | | + + + | Gnosticism Affiliation | MET | + + + | Race | White | + + + | Ethnic Group | Not or | + + + Author + + + | Author | [facility] | + + + | Organization | [facility] | + + + | Address [...] Team Providers + +------+ + | Care Editorial Writer Name | Role | Phone | + +------+ + | Mary Vazquez PA-C | PCP | | + +------+ + Reason for Visit + +--------+ + | Reason | Onset | Comments | | | Date | | + +--------+ + | Post-discharge | 05/22/ | s/p right frontotemporal synthetic custom cranioplasty | | follow-up | 2019 | (dos: 05/09/18) with readmission (05/14/26) for wound | | | | dehiscence. | + +--------+ + Encounter Details +--------+ + + + + | Date | Type | Department | Care Team | Description | +--------+ + + + + | 05/22/ | Telephone | Neurosurgery at | Paramjit Huber MD | Post-discharge | | 2019 | | [facility] [address] | [address] | follow-up (s/p right | | | | Ave Center for | [place], [place] | frontotemporal | | | | [facility], | [address] | synthetic custom | | | | | [phone] | cranioplasty (dos: | | | | floor [place], [place] | | 05/09/18) with | | | | [address] | | readmission | | | | [phone] | | (05/14/) for | | | | | | wound dehiscence. ) | +--------+ + + + + Social [...] physical, mental, or emotional | No | 05/15/2018 | | condition, do you have serious difficulty | | | | doing errands alone such as visiting the | | | | doctor? | | | + + + + + + + + | Cognitive Status | Response | Date of Assessment | + + + + | Because of a physical, mental, or emotional | No | 05/15/2018 | | condition, do you have serious difficulty | | | | concentrating, remembering, or making | | | | decisions? (5 years old or older) | | | + + + + documented as of this encounter Miscellaneous Notes Telephone Encounter - Edita Cox LPN - 05/22/2018 2:18 PM PDTIncoming call from patient to return call from discharge nurse. Patient reports that she is doing great. She feels good, but is laying in bed to rest and h er kids are taking care of her. She has been getting up and walking. She is not currently taking pain medication and also d oes not need bowel care meds. Patient reports that her incsion looks good. Denies redness, swelling, heat or fever at thi s time. She received all of the medications she needed and has no post-op questions at this time. She is aware of her upcoming follow up with our Skull based team on 06/02 at 12 pm and her a ppt. with Dr. White in June. She has no concerns regarding paperwork. Patient verbalized understanding when instructed to call our clinic if she sees any redness , heat, swelling, drainage or fever at the incision site. She can also call if she has any further questions or concerns. elephone Encounter - Carri Parks LPN - 05/22/2018 1:10 PM PDTSheryl is s/p right frontotemporal synthetic custom cranioplasty (do s: 05/09/18) with readmission (05/14/26) for wound dehiscence. Next appointment: 06/02 This is Carri,with the Department of Neurosurgery at [facility]. I am contacting you today in re gards to your recent discharge from the hospital. Dr. Huber and I want to make sure all you r needs have been met, that you are doing well and answer any questions or concerns that you may have. I will call back in the next day or two, if you have any questions or concerns or urgent needs prior to my return call. You can reach the nurse team at [phone]. A voice message was left. If the patient returns my call please connect them to one of the nurses to verify the follow: -How are they doing? -Do they have all the medication they were prescribed and/or restarted at time of discharge ? -Do they have any questions about their post op instructions? -Are they aware of their upcoming appointments including, date, time & location. -Do they have FMLA or short term disability paperwork that needs completing? documented in this encounter Plan of Treatment Not on filedocumented as of this encounter Visit Diagnoses Not on filedocumented in this encounter"
--- OUTSIDE RECORDS SUMMARY | ~2019-10-16 | XMS | Encounter Summary ---
Demographics + + + | Address | [address] | | | [place] [address] | + + + | Home Phone [...] + + + | Author | [facility] | + + + | Organization | [facility] | + + + | Address | [...] Team Providers + +------+ + | Care Pulmonary Physician Name | Role | Phone | + +------+ + | No Pcp Per Patient | PCP | Unavailable | + +------+ + Reason for Referral Diagnostic Testing (Routine) +--------+--------+ + + + + | Status | Reason | Specialty | Diagnoses / | Referred By | Referred To | | | | | Procedures | Contact | Contact | +--------+--------+ + + + + | Closed | | Radiology | Diagnoses | [place], | | | | | | | Nettie Smart, | | | | | | Osteomyeliti | [place] [address] | | | | | | s, | [address] | | | | | | unspecified | [address] | | | | | | site, | [place], [place] | | | | | | unspecified | [address] | | | | | | type (HCC) | Phone: | | | | | | Skull defect | [phone] | | | | | | Procedures | Fax: | | | | | | CT | [phone] | | | | | | STEREOTACTIC | | | | | | | HEAD W | | | | | | | CONTRAST | | | +--------+--------+ + + + + Reason for Visit Diagnostic Testing (Routine) +--------+--------+ + + + + | Status | Reason | Specialty | Diagnoses / | Referred By | Referred To | | | | | Procedures | Contact | Contact | +--------+--------+ + + + + | Closed | | Radiology | Diagnoses | [place], | | | | | | | Nettie Smart, | | | | | | Osteomyeliti | [place] [address] | | | | | | s, | [address] | | | | | | unspecified | [address] | | | | | | site, | [place], [place] | | | | | | unspecified | [address] | | | | | | type (HCC) | Phone: | | | | | | Skull defect | [phone] | | | | | | Procedures | Fax: | | | | | | CT | [phone] | | | | | | STEREOTACTIC | | | | | | | HEAD W | | | | | | | CONTRAST | | | +--------+--------+ + + + + Encounter Details +--------+ + + + + | Date | Type | Department | Care Team | Description | +--------+ + + + + | 02/24/ | Hospital | Diagnostic Imaging | Nettie Jaramillo | | | 2019 | Encounter | Services at [facility] | ANSON Smart [address] | | | | | [address] | [place] | | | | | [address] [place] | [place], [place] | | | | | [facility], [address] [place] [address] | [address] | | | | | [place], [place] | [phone] | | | | | [address] | | | | | | [phone] | | | +--------+ + + + [...] mg by mouth | | 0 | 04/11/19 | | | oral tablet | once daily at | | | 18 | 9 | | | bedtime. | | | | | + + + +---------+ + + documented as of this encounter Plan of Treatment Not on filedocumented as of this encounter Procedures + +--------+ + + + | Procedure Name | Priori | Date/Time | Associated Diagnosis | Comments | | | ty | | | | + +--------+ + + + | CT STEREOTACTIC HEAD | Routin | 02/24/2018 | Osteomyelitis, | Results for this | | W CONTRAST | e | 11:38 AM | unspecified site, | procedure are in the | | | | PST | unspecified type | results section. | | | | | (HCC) Skull defect | | + +--------+ + + + | CREATININE, POC | Routin | 02/24/2018 | Osteomyelitis, | Results for this | | | e | 11:28 AM | unspecified site, | procedure are in the | | | | PST | unspecified type | results section. | | | | | (HCC) | | + +--------+ + + + documented in this encounter Results CT STEREOTACTIC HEAD W CONTRAST (02/24/2018 11:38 AM PST) + + | Specimen | + + | | + + + + + | Narrative | Performed At | + + + | EXAM: CT HEAD WITH CONTRAST HISTORY: Synthetic cranioplasty | [facility] | | planning and f/u wound infection COMPARISON: CT 12/06/2017 | RADIOLOGY VOICE | | TECHNIQUE: CT of the head with iodine based intravenous contrast. | RECOGNITION 2 | | FINDINGS: BRAIN: Redemonstrated postsurgical changes of right | | | frontal craniectomy. There is persistent dural thickening and | | | calcification subjacent to the craniectomy site, not significantly | | | changed. No abnormal soft tissue enhancement or fluid collection in | | | the surgical region. Bifrontal left greater than right | | | encephalomalacia is redemonstrated. No evidence of hemorrhage, mass, | | | or acute territorial infarction. Unchanged aneurysm clips in the | | | region of the anterior communicating artery. The ventricles are | | | normal in size and morphology. SOFT TISSUES: Chronic postsurgical | | | changes, otherwise unremarkable. No abnormal enhancement or fluid | | | collection. SKULL AND SKULL BASE: No fractures or destructive | | | lesions. Mastoids and middle ears are unremarkable. FACE/ORBITS: | | | Visualized portions are unremarkable. PARANASAL SINUSES: Visualized | | | portions are unremarkable. IMPRESSION: Stable postsurgical | | | changes of right frontal craniectomy. Unchanged bifrontal | | | encephalomalacia. No abnormal soft tissue enhancement or fluid | | | collection overlying the craniectomy site. No evidence of infection. | | | I have personally reviewed the images and, if necessary, edited the | | | report. I agree with the report as now presented. Final | | | signature: Abhishek Gray MD 02/24/2018 4:13 PM Preliminary: | | | Yeyo Calhoun MD 02/24/2018 12:57 PM Dictation initiated: | | | Yeyo Calhoun MD 02/24/2018 11:46 AM | | + + + + + | Procedure Note | + + | Service Account, Radiant Res In Interface - 02/24/2018 4:14 PM PST EXAM: CT HEAD | | WITH CONTRAST HISTORY: Synthetic cranioplasty planning and f/u wound infection | | COMPARISON: CT 12/06/2017 TECHNIQUE: CT of the head with iodine based intravenous | | contrast. FINDINGS: BRAIN: Redemonstrated postsurgical changes of right frontal | | craniectomy. There is persistent dural thickening and calcification subjacent to the | | craniectomy site, not significantly changed. No abnormal soft tissue enhancement or | | fluid collection in the surgical region. Bifrontal left greater than right | | encephalomalacia is redemonstrated. No evidence of hemorrhage, mass, or acute | | territorial infarction. Unchanged aneurysm clips in the region of the anterior | | communicating artery. The ventricles are normal in size and morphology. SOFT TISSUES: | | Chronic postsurgical changes, otherwise unremarkable. No abnormal enhancement or fluid | | collection.SKULL AND SKULL BASE: No fractures or destructive lesions. Mastoids and | | middle ears are unremarkable.FACE/ORBITS: Visualized portions are unremarkable.PARANASAL | | SINUSES: Visualized portions are unremarkable. IMPRESSION: Stable postsurgical changes | | of right frontal craniectomy. Unchanged bifrontal encephalomalacia. No abnormal soft | | tissue enhancement or fluid collection overlying the craniectomy site. No evidence of | | infection. I have personally reviewed the images and, if necessary, edited the report. I | | agree with the report as now presented. Final signature: Abhishek Gray MD | | 02/24/2018 4:13 PM Preliminary: Yeyo Calhoun MD 02/24/2018 12:57 PM Dictation | | initiated: Yeyo Calhoun MD 02/24/2018 11:46 AM | | | |Stable postsurgical changes of right frontal craniectomy. Unchanged bifrontal encephalomala leonarda. | | | |No abnormal soft tissue enhancement or fluid collection overlying the craniectomy site. No evidence of infection. | | | |I have personally reviewed the images and, if necessary, edited the report. I agree with th e report as now presented. | | | |Final signature: Abhishek Gray MD 02/24/2018 4:13 PM | |Preliminary: Yeyo Calhoun MD 02/24/2018 12:57 PM | |Dictation initiated: Yeyo Calhoun MD 02/24/2018 11:46 AM | + + + +---------+ + + | Performing | Address | City/State/Zipcode | Phone Number | | Organization | | | | + +---------+ + + | [facility] | | | | | VOICE RECOGNITION 2 | | | | + +---------+ + + CREATININE POC (02/24/2018 11:28 AM PST) + +-------+ + + + | Component | Value | Ref Range | Performed | Pathologist | | | | | At | Signature | + +-------+ + + + | CREATININE, | 0.8 | 0.6 - 1.1 mg/dL | [facility] - | | | POC | | | [facility] | | | | | | [facility] | | | | | | [facility] CARE | | | | | | TESTS | | + +-------+ + + + + + | Specimen | + + | Blood - Blood | | (substance) | + + + + + + + | Performing | Address | City/State/Zipcode | Phone Number | | Organization | | | | + + + + + | [facility] | [address] | [place], [place] | | | [facility] | [address] | [address] | | | TESTS | | | | + + + + + documented in this encounter Visit Diagnoses + + | Diagnosis | + + | Osteomyelitis, unspecified site, unspecified type (HCC) | + + | Skull defect Unspecified acquired deformity of head | + + documented in this encounter Administered Medications + +---------+ +--------+------+------+ | Medication Order | MAR | Action | Dose | Rate | Site | | | Action | Date | | | | + +---------+ +--------+------+------+ | iohexol (OMNIPAQUE) 350 mg | IV Push | 02/24/19 | 100 mL | | | | iodine/mL injection 100 mL 100 | | 19 11:33 | | | | | mL, intravenous, ONCE, 1 dose, | | AM PST | | | | | 02/24/18 at 1145 | | | | | | + +---------+ +--------+------+------+ +---+---+ | | | +---+---+ documented in this encounter"
--- OUTSIDE RECORDS SUMMARY | ~2019-10-16 | XMS | Encounter Summary ---
Demographics + + + | Address | [address] | | | [place] [address] | + + + | Home Phone | | + + + | Preferred Language | Unknown | + + + | Marital Status | | + + + | Tenriism Affiliation | Unknown | + + + | Race | White | + + + | Ethnic Group | Not or | + + + Author + + + | Author | [facility] | | | and [place] | + + + | Organization | [facility] | | | [...] Team Providers + +------+ + | Care Laborer Pipeline Name | Role | Phone | + +------+ + | Lance Pandya DO | PCP | | + +------+ + Reason for Visit + +--------+ + | Reason | Onset | Comments | | | Date | | + +--------+ + | Appointment | 02/24/ | | | | 2016 | | + +--------+ + Encounter Details +--------+ + + + + | Date | Type | Department | Care Team | Description | +--------+ + + + + | 02/24/ | Telephone | [facility] | Chana Luu, | Appointment | | 2015 | | CARDIOLOGY [address] | MD [address] | | | | | [place], | [place] | | | | | [place] [address] | [address] | | | | | [phone] | | | +--------+ + + + [...] this encounter Miscellaneous Notes Telephone Encounter - Ashley Berry - 02/25/2015 10:05 AM PSTPatient was rescheduled to be seen with Dr Prado due to Dr Luu being unavailable Patient needed to have HOSP FUP asap 10 :06 AM PSTTelephone Encounter - Ashley Berry - 02/24/2015 4:02 PM PSTCall from ANSON Victor She Requested chart notes from Dr Luu last visit with Patient. Patient cancelled last appt and rescheduled. Will send notes when appt is complete.Electro nically signed by Ashley Berry at 02/24/2015 4:04 PM PSTdocumented in this encounter Plan of Treatment Not on filedocumented as of this encounter Visit Diagnoses Not on filedocumented in this encounter"
--- OUTSIDE RECORDS SUMMARY | ~2019-10-16 | XMS | Encounter Summary ---
Demographics + + + | Address | [address] | | | [place] [address] | + + + | Home Phone [...] + + + | Author | [facility] | + + + | Organization | [facility] | + + + | [...] Team Providers + +------+ + | Care Pattern Maker Programer Name | Role | Phone | + [...] | | | [facility] | [place], [place] | (Subarachnoid | | | | [facility], | [address] | Hemorrhage) ([facility]) | | | | [facility] [address] | [phone] | | | | | floor [place], [place] | | | | | | [address] | | | | | | [phone] | | | +--------+---------+ + + + [...]
--- OUTSIDE RECORDS SUMMARY | ~2019-10-16 | XMS | Encounter Summary ---
Demographics + + + | Address | [address] | | | [place] [address] | + + + | Home Phone | | + + + | Preferred Language | Unknown | + + + | Marital Status | | + + + | Christianity Affiliation | Unknown | + + + | Race | White | + + + | Ethnic Group | Not or | + + + Author + + + | Author | [facility] | | | and [place] | + + + | Organization | [facility] | | | [...] Team Providers + +------+ + | Care Junior Graphic Designer Name | Role | Phone | + [...] + + | 02/08/ | Refill | [facility] | Luis Manuel Hammond, | Medication Refill | | 2019 | | CARDIOLOGY JENNIFER | [address] | | | | | [address] | [facility], | | | | | [place] | [place] [id number] | | | | | [address] | [phone] | | | | | [phone] | | | +--------+--------+ + + + [...]
--- OUTSIDE RECORDS SUMMARY | ~2019-10-16 | XMS | Encounter Summary ---
Demographics + + + | Address | [address] | | | [place] [address] | + + + | Home Phone | | + + + | Preferred Language | Unknown | + + + | Marital Status | | + + + | Muslim Affiliation | Unknown | + + + | Race | White | + + + | Ethnic Group | Not or | + + + Author + + + | Author | [facility] | | | and [place] | + + + | Organization | [facility] | | | and [place] | + + + | Address | Unknown | + + + | Phone | Unavailable | + + + Support + + +---------+ + | Name | Relationship | Address | Phone | + + +---------+ + | Lindacash LeachMoustapha | ECON | Unknown | | + + +---------+ + | Augusto Bell | ECON | Unknown | | + + +---------+ + Care Team Providers + +------+ + | Care Apron Cleaner Name | Role | Phone | + +------+ + | No, Physician | PCP | Unavailable | + +------+ + Encounter Details +--------+ + + + + | Date | Type | Department | Care Team | Description | +--------+ + + + + | 09/26/ | Orders Only | [facility] | Provider, | | | 2019 | | [facility] | MD [address] | | | | | [address] | [address] | | | | | [address] | [place] [address] | | | | | [place], [place] | | | | | | [address] | | | | | | [phone] | | | +--------+ + + + [...]
--- OUTSIDE RECORDS SUMMARY | ~2019-10-16 | XMS | Encounter Summary ---
Demographics + + + | Address | [address] | | | [place] [address] | + + + | Home Phone | | + + + | Preferred Language | Unknown | + + + | Marital Status | | + + + | Christianity Affiliation | Unknown | + + + | Race | White | + + + | Ethnic Group | Not or | + + + Author + + + | Author | [facility] | | | and [place] | + + + | Organization | [facility] | | | [...] Team Providers + +------+ + | Care Medical Technologist Prn Name | Role | Phone | + +------+ + | Lance Pandya DO | PCP | | + +------+ + Reason for Visit + +--------+ + | Reason | Onset | Comments | | | Date | | + +--------+ + | Records Request | 01/29/ | | | | 2015 | | + +--------+ + Encounter Details +--------+ + + + + | Date | Type | Department | Care Team | Description | +--------+ + + + + | 01/29/ | Telephone | [facility] | Chana Luu, | Records Request | | 2014 | | CARDIOLOGY [address] | MD [address] | | | | | [place], | [place] | | | | | [place] [address] | [address] | | | | | [phone] | | | +--------+ + + + [...] this encounter Miscellaneous Notes Telephone Encounter - Ericka Guerrero - 01/29/2015 12:23 PM PSTFaxed request received from Venus at [facility] Neuro[facility] to fax most recent records to them. Faxed to Attn: Venus at [facility] Neurosurgery fax number [phone], as Venus requested by fax: Hospital Discharge Summary 12-29-14 Echo 12-28-14 NSTEMI 12-28-14 EKG 12-28-14 Labs 12-29-14 Notation on coversheet: "Pt has a hospital follow-up appointment scheduled with Dr. Ramiro ni on 02-17-15." documented in this encou nter Plan of Treatment Not on filedocumented as of this encounter Visit Diagnoses Not on filedocumented in this encounter
--- OUTSIDE RECORDS SUMMARY | ~2019-10-16 | XMS | Encounter Summary ---
Demographics + + + | Address | [address] | | | [place] [address] | + + + | Home Phone [...] + + + | Author | [facility] | + + + | Organization | [facility] | + + + | [...] Team Providers + +------+ + | Care Clinical Marketing Manager Name | Role | Phone | [...] + + | 04/29/ | Emergency | [facility] Emergency | Jim Smith MD | | | 2008 | | Department [address] | [address] | | | | | [address] | [place], | | | | | [facility] | [place] [address] | | | | | [place], [place] | [phone] | | | | | [address] | | | | | | [phone] | | | +--------+ + + + [...] use over the counter antihistamines such as Orlando dryl (diphenhydramine) in a dosage as recommended [...] your wound rechecked. ExitCare Patient Information 2006 [employer]. documented in this encounter H&P Notes Krystle Tejeda Md - 04/29/2008 8:34 PM PDT NEUROSURGERY CONSULT HISTORY AND PHYSICAL Author: KRYSTLE TEJEDA Attending Physician: Jim mSith MD Reason for consult: Redness on skin [...] CHEST AND ABD 2 VIEWS - Value: REPORT CLERK SHUNT SERIES COMPARISON: NONE FINDINGS: Multiple views [...] nella:
Means of arrival:
Comments:
[facility] Linda Alva - 04/29/2008 5:46 PM [...] stop for shunt placement. Pt returned to [facility] today for eval and was referred to ED by neur osurgery because "the shunt didn't look good". Hx of surgery for brain aneurysm last September . Pt states the shunt incisions on R neck and abd itched and she scratched them. Incisions are erythemic and warm to touch. No exudate. Denies blurred vision. CSM intact in extrem ities x 4. [place] stroke scale neg. Skin pwd. Pt BONILLA [...] | + + + + + | [facility] | [address] | [place] [address] | | | PATHOLOGY | [address] | | | + + + + + | [facility] | [address] | [place] [address] | | | PATHOLOGY | [address] [...] | + + + + + | [facility] DEPARTMENT | [address] [facility] | [place] [address] | | | PATHOLOGY | [address] | | | + + + + + | [facility] | [facility] | [place] [address] | | | PATHOLOGY | [address] [...] | + + + + + | [facility] DEPARTMENT OF | [facility] | [place] [address] | | | PATHOLOGY | [address] | | | + + + + + | [facility] DEPARTMENT OF | [facility] [address] | [place] [address] | | | PATHOLOGY | [address] [...] at | | | | | | [facility]. Culture: | | | | | | [...] | | | | | performed at [facility] | | | | | | [facility] | | | | | | Laboratory. | | | | + + + + + + + + | Specimen | + + | Cerebrospinal fluid | + + + + + + + | Performing | Address | City/State/Zipcode | Phone Number | | Organization | | | | + + + + + | [facility] | [address] | [place] [address] | | | LAB-MICRO | | | [...] | + + + + + | [facility] DEPARTMENT OF | [address] | [place] [address] | | | PATHOLOGY | [address] | | | + + + + + | [facility] DEPARTMENT OF | [address] | [place] [address] | | | PATHOLOGY | [address] [...] | + + + + + | [facility] | [address] | [place] [address] | | | PATHOLOGY | [address] | | | + + + + + | [facility] | [address] | [place] [address] | | | PATHOLOGY | [address] [...] | | + +---------+ + + | [facility] DEPARTMENT OF | | | | | [...] + + + | X-RAY SHUNT | REPORT CLERK SHUNT | | | | | EVAL [...]
--- OUTSIDE RECORDS SUMMARY | ~2019-10-16 | XMS | Encounter Summary ---
Demographics + + + | Address | [address] | | | [place] [address] | + + + | Home Phone [...] Team Providers + +------+ + | Care Ciaio Counter Molder Name | Role | Phone | + [...] | +--------+ + + + + | 07/11/ | Anesthesia | 6A Intra Op 3181 | Nayla Arreguin, | | | 2019 | Event | [address] | [address] | | | | | [facility] | [address] | | | | | Hospital Admitting | [facility] [place] | | | | | Desk Located on the | [address] | | | | | 9th floor | [phone] | | | | | [facility] [place] | | | | | | [address] | Bill Sanchez MD | | | | | | [address] | | | | | | [place], | | | | | | [place] [address] | | | | | | [phone] | | | | | | | | +--------+ + + + + Anesthesia Record + + + + + | Procedure Name | Responsible | Anesthesia Start | Anesthesia Stop Time | | | Anesthesiologist | Time | | + + + + + | RIGHT CRANIOPLASTY | Nayla Arreguin MD | 07/11/18 1127 | 07/11/18 1422 | | EXPLANT, COMPLEX | | | | | WOUND CLOSURE (Right | | | | | Head) | | | | + + + + + +----+---+ + + | Da | T | Event | Comment | | te | i | | | | | m | | | | | e | | | +----+---+ + + | 05 | 1 | | | | /2 | 0 | | | | 1/ | 3 | | | | 20 | 8 | | | | 19 | | | | +----+---+ + + | | 1 | Pt. Check | Prior to anesthesia start, pt. Identified, examined, chart | | | 0 | | reviewed, PARQ held, anesthetic plan made or approved by | | | 3 | | attending anesthesiologist. NPO status confirmed as appropriate | | | 9 | | for procedure Preoperative evaluation: unchanged | +----+---+ + + | | 1 | An Start | | | | 1 | | | | | 2 | | | | | 7 | | | +----+---+ + + | | 1 | An Start | | | | 1 | Data | | | | 3 | | | | | 3 | | | +----+---+ + + | | 1 | Vitals | Monitors applied Vital signs checked Patient ready for anesthesia | | | 1 | Checked | | | | 3 | | | | | 8 | | | +----+---+ + + | | 1 | ETT | | | | 1 | | | | | 4 | | | | | 3 | | | +----+---+ + + | | 1 | Ready | | | | 1 | | | | | 4 | | | | | 9 | | | +----+---+ + + | | 1 | Abx held | Contraindicated, or not indicated for this procedure, or already | | | 2 | Medical or | receiving antibiotics. Plan for sampling surgical tissue and | | | 2 | Surgical | send it for culture prior to abx. | | | 4 | Reason | | +----+---+ + + | | [...] | | 1 | Quick Note | Surgical sample sent. | | | 2 | | | | | 3 | | | | | 2 | | | +----+---+ + + | | 1 | Abx | | | | 2 | Administere | | | | 3 | d | | | | 3 | | | +----+---+ + + | | 1 | Quick Note | Deanna has completed their portion. Waiting for Dr. White to | | | 2 | | return. | | | 4 | | | | | 5 | | | +----+---+ + + | | 1 | Quick Note | Dr. White returned to OR. | | | 3 | | | | | 2 | | | | | 4 | | | +----+---+ + + | | 1 | Surgery end | | | | 3 | | | | | 5 | | | | | 9 | | | +----+---+ + + | | 1 | An Extubate | Neuromuscular function Intact. Pharynx suctioned. Patient obeys | | | 4 | | commands. Adequate pulmonary mechanics. | | | 0 | | | | | 7 | | | +----+---+ + + | | 1 | an stop | | | | 4 | data | | | | 0 | | | | | 7 | | | +----+---+ + + | | 1 | PACU Rpt | | | | 4 | Given | | | | 2 | | | | | 2 | | | +----+---+ + + | | 1 | Anesthesia | | | | 4 | End | | | | 2 | | | | | 2 | | | +----+---+ + + | | 1 | Post-Op | | | | 5 | Page | | | | 4 | | | | | 5 | | | +----+---+ + + +------+ | Meds | +------+ + + + | Name | Total | + + + | fentaNYL | 250 mcg | + + + | propofol | 60 mg | + + + | ePHEDrine | 15 mg | + + + | PHENYLEPHrine | 100 mcg | + + + | etomidate | 10 mg | + + + | lidocaine 2% | 50 mg | + + + | rocuronium | 30 mg | + + + | ceFAZolin | 2,000 mg | + + + | dexamethasone | 4 mg | + + + | ondansetron | 4 mg | + + + | neostigmine vial | 2.5 mg | + + + | glycopyrrolate | 0.4 mg | + + + | albuterol inhaler | 8 puff | + + + | esmolol | 20 mg | + + + | lactated ringers IV | 500 mL | + + + + + | Name | + + | Insp Sevo | + + | Et Sevo | + + + + | No blood administrations on file. | + + +--------+ + + + | Type | Details | Placement | Removal | +--------+ + + + | Periph | Left; Hand; 18 g; 07/11/18; 2100; | 07/11/18 1257 by | 07/11/18 2100 by | | rosa | Site change | | Rosa Tucker RN | | IV | | | [...] | | | | | drive from [place]); 08/11/18; | | | | | 1206 | | | +--------+ + + + | Incisi | 12/05/17; Right; adb- upper | 12/05/17 0000 by | 07/11/18 1355 by | | on | quadrant; 07/11/18; 135 | Silvia Byrne RN | Patria Vasques RN | +--------+ + + + | Incisi | 12/05/17; 2126; Horacio Hewitt MD; | 12/05/172126 by | 07/11/18 1337 by | | on | Right; head; 07/11/18; 1337 | Kobe Chavez RN | Patria Vasques RN | +--------+ + + + | Incisi | 05/08/18; Rakesh MD; Right; head- | 05/08/18 0000 by | 07/11/18 1355 by | | on | frontal; 07/11/18; 1355 | Gurvinder Rodriguez RN | Patria Vasques RN | +--------+ + + + | Periph | 07/10/18; 1104; MM; Right; Wrist; | 07/10/18 1104 by | 07/13/18 1000 by | | eral | 22 g; 07/13/18; 1000 | Candie Narvaez RN | Fabienne Navarro RN | | IV | | | | +--------+ + + + | Periph | 07/10/18; 1305; rpb; Right; | 07/10/18 1305 by | 07/13/18 1800 by | | eral | Antecubital; 20 g; Positive; | Carlos Eduardo Shah RN | Fabienne Navarro RN | | IV | 07/13/18; 1800 | | | +--------+ + + + | ETT | 07/11/18; 1143 (created via | 07/11/18 1143 by | 07/11/18 1407 by | | | procedure documentation); 7; | Bill Sanchez MD | Bill Sanchez MD | | | Oral; Cuffed; 07/11/18; 1407 | | | +--------+ + + + | Arteri | 07/11/18; 1145 (created via | 07/11/18 1145 by | 07/24/18 170 by | | al | procedure documentation); | Bill Sanchez MD | Discontinued After | | Line | 07/24/18; 1708 | | Discharge | +--------+ + + + | Incisi | 07/11/18; 1337; Dr. Salinas; Right; | 07/11/18 1337 by | 08/11/18 1206 by | | on | head; 08/11/18; 1206 | Patria Vasques RN | Vida Rogel RN | +--------+ + + + documented in [...] encounter OR Notes Anesthesia Postprocedure Evaluation - Bill Sanchez MD - 07/11/2018 2:22 PM PDTFormatti ng of this note might be different from the original. Cielo Bell [id number] Vitals Value Taken Time BP 162/64 07/11/2018 2:21 PM Temp 36.8 C (98.2 F) 07/11/2018 2:21 PM Pulse 79 07/11/2018 2:21 PM Resp 15 07/11/2018 9:47 AM SpO2 93 % 07/11/2018 2:21 PM EVALUATION VS (BP, HR, RR, SpO2, and Temp) and hydration status are stable ROS including Cards, Resp, Neuro, and GI without evidence of adverse effects No PONV Pain controlled No altered mental status COMPLICATIONS No adverse events nesthesia Procedure Notes - Bill Sanchez MD - 07/11/2018 12:55 PM PDTAssociated Order(s): ETTAIRWAY MANAGEME NT - ETT Time of Placement: 07/11/2018 11:43 AM Intubation Reason: For surgical procedure Positioning: Supine Location Performed:OR OXYGENATION Patient was preoxygenated Grade: Grade 2 - Ventilated by mask with oral airway/adjuvant Induction:Routine INTUBATION ATTEMPT 1 Blade Type: Nidhi Blade #: 3 Laryngoscopic View: Grade I ETT DETAILS ETT Type:Standard, Hi-Lo Cuffed Intubation Type: Oral Cuff Status: Cuffed Size: 7 ETT secured with adhesive tape Depth at Teeth: 21 cm CONFIRMATION Number of Attempts: 1 Atraumatic placement Positive for EtCO2:Waveform capnography Breath Sounds: Bilateral and equal NARRATIVE Attending was physically present for the critical portions of the procedure as described in the procedure note Authorized by Nayla Arreguin MD Performed by Bill Sanchez MD Procedure Comments: Patient positioned optimally and end tidal O2 >80% prior to induction. Initially very tight with BMV, improved with paralysis. ETT passed easily through open cor ds. No desaturations throughout the procedure. No damage to lips, gums, teeth, or tongue. nesthesia Procedur e Notes - Nayla Arreguin MD - 07/11/2018 12:54 PM PDTAssociated Order(s): Art LineProced ure ART LINE Procedure Information Inserted: After Induction 5 minutes to perform. Assessment nesthesia Preproce dure Evaluation - Bill Sanchez MD - 07/11/2018 10:38 AM PDTSheryl Marsha Bell [id number] NPO: 0001 Last Vitals Temp: 36.2 C (97.2 F) Heart Rate: 81 Resp: 15 BP: 99/64 SpO2: 91 % O2 Flow Rate: 3 LPM O2 Delivery Device: None (room air) Preg Status/LMP ANESTHESIA PLAN ASA 3 NPO Status: NPO by protocol ANESTHETIC TECHNIQUE Technique Used: General Induction: intravenous MONITORS/LINES TO BE USED Standard Art line ANESTHETIC CONSIDERATIONS PONV prophylaxis, Premeds, Preop antibiotics and IV when asleep POSTOP PAIN IV analgesics INFORMED CONSENT PARQ and risks/benefits of anesthetic plan discussed with patient Additional Consent Issues: Procedures, Alternatives, Risks, and Questions discussed. Risk/b enefit of anesthesia plan and blood product discussed Dental Risk discussed with patient Consent series given Date and Time Obtained: 07/11/2018 10:38 AM PATIENT'S CODE STATUS IN OR FULL documented in this encounter Miscellaneous Notes PMC/ANE PreOp Note - Bill Sanchez MD - 07/11/2018 10:38 AM PDTROS: HPI: Cielo Bell is a 68 y.o. female here for revision cranioplasty. 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 Has been off of aspirin since her most recent surgery (April). PMH: -hypertension on lisinopril 5 mg daily (did not take this AM) -CAD - prior STEMI s/p BMS (denies symptoms since last HI ~2 years prior, took metoprolol t his [...] infarction. NSR. Summary: -- Echo (03/02/17 - SAH): TDS, EF 35-40%, apical 1/3 is aneurysmal, with akinesis in focal a reas of dyskinesis. Grade 1 diastolic dysfunction. Normal RV size and function. Mild AI -- Cardiac Cath (09/15/16): Left ventricular end-diastolic pressure 25. LM-normal. Proximal- mid LAD with patent stents, 40% ISR, FFR 0.85. LCx-normal, OM2-20%. RCA proximal-20%, mid-30 % -- Lexiscan Cardiolite stress test (07/27/16-[facility]): Severe LV enlargement, marked scarring (co mprising approximately 60% of the entire LV) of the entire anterior, anteroseptal, mid and d istal inferior, inferoseptal, inferolateral and anterolateral segments with no evidence of i schemia, EF 16% -- Echo (12/28/14-[facility]): EF 54%, apical hypokinesis, grade 1 diastolic dysfunction, mild AI -- Cardiac Cath / PCI (12/28/14 - [facility]): LVEDP 35, LM-normal, mid LAD- occluded > [...] D 12/2015) medically managed cardiac stents past HI Last HI: > 1 year valvular problems /murmurs AR [...] Rate: Normal Cardiovascular comments: distant heart sounds documented in this en counter Plan of Treatment Not on filedocumented as of this encounter Procedures + +--------+ + + + | Procedure Name | Priori | Date/Time | Associated Diagnosis | Comments | | | ty | | | | + +--------+ + + + | ANE ETT | Routin | 07/11/2018 | | Results for this | | | e | 12:55 PM | | procedure are in the | | | | PDT | | results section. | + +--------+ + + + | ANE ART LINE | Routin | 07/11/2018 | | Results for this | | | e | 12:54 PM | | procedure are in the | | | | PDT | | results section. | + +--------+ + + + documented in this encounter Results ETT (07/11/2018 12:55 PM PDT) + + + | Narrative | Performed At | + + + | Bill Sanchez MD 07/11/2018 12:56 PM AIRWAY MANAGEMENT - ETT | | | Time of Placement: 07/11/2018 11:43 AM Intubation Reason: For | | | surgical procedure Positioning: Supine Location Performed:OR | | | OXYGENATION Patient was preoxygenated Grade: Grade 2 - Ventilated by | | | mask with oral airway/adjuvant Induction:Routine INTUBATION | | | ATTEMPT 1 Blade Type: Nidhi Blade #: 3 Laryngoscopic View: | | | Grade I ETT DETAILS ETT Type:Standard, Hi-Lo Cuffed Intubation | | | Type: Oral Cuff Status: Cuffed Size: 7 ETT secured with adhesive | | | tape Depth at Teeth: 21 cm CONFIRMATION Number of Attempts: 1 | | | Atraumatic placement Positive for EtCO2:Waveform capnography Breath | | | Sounds: Bilateral and equal NARRATIVE Attending was physically | | | present for the critical portions of the procedure as described in | | | the procedure note Authorized by Nayla Arreguin MD Performed by | | | Bill Sanchez MD Procedure Comments: Patient positioned | | | optimally and end tidal O2 >80% prior to induction. Initially very | | | tight with BMV, improved with paralysis. ETT passed easily | | | through open cords. No desaturations throughout the procedure. | | | No damage to lips, gums, teeth, or tongue. | | + + + Art Latasha (07/11/2018 12:54 PM PDT) + + + | Narrative | Performed At | + + + | Nayla Arreguin MD 07/24/2018 11:08 AM Procedure ART LINE | | | Procedure Information Inserted: After Induction 5 minutes to | | | perform. Assessment | | + + + + + | Procedure Note | + + | Nayla Arreguin MD - 07/11/2018 12:54 PM PDT Procedure | | ART LINE | | Procedure Information | | Inserted: After Induction | | 5 minutes to perform. | | | | | | | | | | | | | | | | | | | | | | | | | | | | | | Assessment | + + documented in this encounter Visit Diagnoses Not on filedocumented in this encounter Administered Medications + +--------+ +---------+------+------+ | Medication Order | MAR | Action | Dose | Rate | Site | | | Action | Date | | | | + +--------+ +---------+------+------+ | albuterol (PROVENTIL, VENTOLIN) | Given | 07/12/19 | 8 puffs | | | | 90 mcg/actuation inhaler | | 19 2:02 | | | | | INTRAPROCEDURE PRN, Starting Tue | | PM PDT | | | | | 07/11/18 at 1402, Until Tue | | | | | | | 07/11/18 at 1410 | | | | | | + +--------+ +---------+------+------+ +---+---+ | | | +---+---+ + +-------+ + +---+---+ | ceFAZolin (ANCEF) injection | Given | 07/12/19 | 2,000 mg | | | | intravenous, INTRAPROCEDURE PRN, | | 19 12:33 | | | | | Starting 07/11/18 at 1233, | | PM PDT | | | | | Until 07/11/18 at 1410 | | | | | | + +-------+ + +---+---+ +---+---+ | | | +---+---+ + +-------+ +------+---+---+ | dexamethasone (DECADRON) | Given | 07/12/19 | 4 mg | | | | injection intravenous, | | 19 12:43 | | | | | INTRAPROCEDURE PRN, Starting Tue | | PM PDT | | | | | 07/11/18 at 1243, Until Tue | | | | | | | 07/11/18 at 1410 | | | | | | + +-------+ +------+---+---+ +---+---+ | | | +---+---+ + +-------+ +------+---+---+ | ePHEDrine injection | Given | 07/12/19 | 5 mg | | | | INTRAPROCEDURE PRN, Starting Tue | | 19 1:15 | | | | | 07/11/18 at 1159, Until Tue | | PM PDT | | | | | 07/11/18 at 1410 | | | | | | + +-------+ +------+---+---+ +-------+ +------+---+---+ | Given | 07/12/19 | 5 mg | | | | | 19 12:44 | | | | | | PM PDT | | | | +-------+ +------+---+---+ | Given | 07/12/19 | 5 mg | | | | | 19 11:59 | | | | | | AM PDT | | | | +-------+ +------+---+---+ +---+---+ | | | +---+---+ + +-------+ +-------+---+---+ | esmolol (BREVIBLOC) injection | Given | 07/12/19 | 20 mg | | | | intravenous, INTRAPROCEDURE PRN, | | 19 2:03 | | | | | Starting 07/11/18 at 1403, | | PM PDT | | | | | Until 07/11/18 at 1410 | | | | | | + +-------+ +-------+---+---+ +---+---+ | | | +---+---+ + +-------+ +-------+---+---+ | etomidate (AMIDATE) injection | Given | 07/12/19 | 10 mg | | | | INTRAPROCEDURE PRN, Starting Tue | | 19 11:41 | | | | | 07/11/18 at 1141, Until Tue | | AM PDT | | | | | 07/11/18 at 1410 | | | | | | + +-------+ +-------+---+---+ +---+---+ | | | +---+---+ + +-------+ +--------+---+---+ | fentaNYL (SUBLIMAZE) injection | Given | 07/12/19 | 50 mcg | | | | INTRAPROCEDURE PRN, Starting Tue | | 19 1:30 | | | | | 07/11/18 at 1140, Until Tue | | PM PDT | | | | | 07/11/18 at 1410 | | | | | | + +-------+ +--------+---+---+ +-------+ +--------+---+---+ | Given | 07/12/19 | 50 mcg | | | | | 19 1:27 | | | | | | PM PDT | | | | +-------+ +--------+---+---+ | Given | 07/12/19 | 50 mcg | | | | | 19 12:28 | | | | | | PM PDT | | | | +-------+ +--------+---+---+ +---+---+ | | | +---+---+ + +-------+ +--------+---+---+ | glycopyrrolate (PF) (AUGUSTO) | Given | 07/12/19 | 0.4 mg | | | | injection soln INTRAPROCEDURE | | 19 1:45 | | | | | PRN, Starting e 07/11/18 at | | PM PDT | | | | | 1345, Until Tue07/11/18 at 1410 | | | | | | + +-------+ +--------+---+---+ +---+---+ | | | +---+---+ + + + +---+---+---+ | lactated ringers IV 500 mL, | given by | 07/12/19 | | | | | intravenous, POSTPROCEDURE PRN, 1 | | 19 1:15 | | | | | dose, Starting e 07/11/18 at | anesthes | PM PDT | | | | | 1257, Until Tue07/11/18 at 1127, | iology | | | | | | nausea/vomiting due to | | | | | | | dehydration | | | | | | + + + +---+---+---+ +---------+ +---+---+---+ | New Bag | 07/12/19 | | | | | | 19 11:27 | | | | | | AM PDT | | | | +---------+ +---+---+---+ +---+---+ | | | +---+---+ + +-------+ +-------+---+---+ | lidocaine (XYLOCAINE MPF) 2 % | Given | 07/12/19 | 50 mg | | | | (20 mg/mL) injection | | 19 11:40 | | | | | INTRAPROCEDURE PRN, Starting Tue | | AM PDT | | | | | 07/11/18 at 1140, Until Tue | | | | | | | 07/11/18 at 1410 | | | | | | + +-------+ +-------+---+---+ +---+---+ | | | +---+---+ + +-------+ +--------+---+---+ | neostigmine (PROSTIGMIN) | Given | 07/12/19 | 2.5 mg | | | | intravenous, INTRAPROCEDURE PRN, | | 19 1:45 | | | | | Starting 07/11/18 at 1345, | | PM PDT | | | | | Until 07/11/18 at 1410 | | | | | | + +-------+ +--------+---+---+ +---+---+ | | | +---+---+ + +-------+ +------+---+---+ | ondansetron (ZOFRAN) injection | Given | 07/12/19 | 4 mg | | | | INTRAPROCEDURE PRN, Starting Tue | | 19 1:45 | | | | | 07/11/18 at 1345, Until Tue | | PM PDT | | | | | 07/11/18 at 1410 | | | | | | + +-------+ +------+---+---+ +---+---+ | | | +---+---+ + +-------+ +---------+---+---+ | PHENYLEPHrine 100 mcg/mL IV | Given | 07/12/19 | 100 mcg | | | | syringe INTRAPROCEDURE PRN, | | 19 11:59 | | | | | Starting 07/11/18 at 1159, | | AM PDT | | | | | Until 07/11/18 at 1410 | | | | | | + +-------+ +---------+---+---+ +---+---+ | | | +---+---+ + +-------+ +-------+---+---+ | propofol (DIPRIVAN) injection | Given | 07/12/19 | 20 mg | | | | INTRAPROCEDURE PRN, Starting Tue | | 19 1:25 | | | | | 07/11/18 at 1141, Until Tue | | PM PDT | | | | | 07/11/18 at 1410 | | | | | | + +-------+ +-------+---+---+ +-------+ +-------+---+---+ | Given | 07/12/19 | 40 mg | | | | | 19 11:41 | | | | | | AM PDT | | | | +-------+ +-------+---+---+ +---+---+ | | | +---+---+ + +-------+ +-------+---+---+ | rocuronium (ZEMURON) injection | Given | 07/12/19 | 30 mg | | | | INTRAPROCEDURE PRN, Starting Tue | | 19 11:40 | | | | | 07/11/18 at 1140, Until Tue | | AM PDT | | | | | 07/11/18 at 1410 | | | | | | + +-------+ +-------+---+---+ +---+---+ | | | +---+---+ documented in this encounter"
--- OUTSIDE RECORDS SUMMARY | ~2019-10-16 | XMS | Encounter Summary ---
Demographics + + + | Address | [address] | | | [place] [address] | + + + | Home Phone | | + + + | Preferred Language | Unknown | + + + | Marital Status | | + + + | Jewish Affiliation | MET | + + + | Race | White | + + + | Ethnic Group | Not or | + + + Author + + + | Author | [facility] | + + + | Organization | [facility] | + + + | [...] Providers + +------+ + | Care Clinical Interviewer Name | Role | Phone | + +------+ + | No Pcp Per Patient | PCP | Unavailable | + +------+ + Reason for Visit + + + | Reason | Comments | + + + | RN Care Management | OPAT | + + + | Infectious disease | | + + + Encounter Details +--------+ + + + + | Date | Type | Department | Care Team | Description | +--------+ + + + + | 12/12/ | Documentati | Infectious | Kristen Goss, | RN Care Management | | 2018 | on | Diseases at [facility] | RN [address] | (OPAT); Infectious | | | | [address] | [facility] | disease | | | | [address] [facility] | [place], [place] | | | | | [address] | [address] | | | | | [place], [place] | [phone] | | | | | [address] | | | | | | [phone] | | | +--------+ + + + [...] Telephone Encounter - Nataliya Carpenter Ma - 12/13/2017 12:45 PM PDTThis OPAT patient has been entered into the [facility] OPAT system of care. Please contact [facility] ID at phone: [phone]; fa x: [phone] with any questions or concerns regarding this patient's infectious disease t reatment plan. elephone Encounter - Kristen Muñoz RN - 12/12/2017 3:21 PM Caren Nicolas: DEBORAHI regarding OPAT appointment. ID MAs: Please add patient to lab list. Kristen Goss RN elephone Encounter - Liz Christianson - 12/12/2017 2:36 PM PDTAn appointment has been arranged as follows: Next Appointment in [facility] is on 12/23/17 at 10:30 am with Saskia Nicolas MD. Transportation Notes: Pt will set up transportation Care Coordination issues needing clarification: none when asked. Pt will have three appts on 12/23: ID, NS, and ENTElectronically signed by Liz Christianson at 2:37 PM PDTTelephone Encounter - Kristen Goss RN - 12/12/2017 11:24 AM PDTForma tting of this note might be different from the original. 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 Antimicrobials Start Date End Date Antibiotic Dose Duration Effective Start Date Anticipated Stop Date Com ments 12/08/17 Ceftriaxone 2g IV q 24 hours 6 weeks 12/05/17 01/16/18 weekly CBC with Differential and CMP Infusion Service Provider: [facility] P [phone], F [phone] Line & Lab Provider: " Line Type: Single-Lumen PICC (Comment: Non-tunneled;Valved Right Arm Basilic ) Line Placed (date): 12/09/17 Discharge Service: Neurological Surgery Discharge Service Provider: Paramjit Huber MD Notes: Team A: OPAT ALEKSANDAR Rowan, Office: [phone], Pager: [phone] Follow Up: with Dr. Mejia, Any available fellow or next available OPAT provider in 2 weeks post hospital discharge. Same day appointment coordination with: Neurosurgery if poss ible. Patient has appt on 12/23 with Neurosurg and ENT. Special consideration: reports some anxiety about home infusion; lives alone with some fami ly supports Patient's PCP left and she is supposed to see Mary Vazquez NP at [phone] [facility] All cultures final. elephone Encounter - Kristen Goss RN - 12/12/2017 11:11 AM PDTLast ID Consult Recs: Date of Service: 12/08/17 Maite Stevens, Medical Student Xavier Mariscal MD Assessment and Plan: 67 y/o F with CAD s/p OH, HTN, SAH s/p right pterional craniotomy for clipping (09/2007) c/b hydrocephalus treated by a right frontal VPS (03/2008) and synthetic cranioplasty for eroded hardware in 10/2015. Presented with a week of increasing headache and purulent drainage from the cranioplasty site with wound dehiscence, and on 12/06/17 underwent removal of craniopla sty and CERTIFIED ORTHOTIST shunt as well as washout. All hardware has been removed, with no immediate plans to replace shunt or cranioplasty. However, there is a high likelihood that bone in direct co ntact with the cranioplasty was involved/infected; as such, will need to treat this as crani al osteomyelitis with six weeks of IV antibiotics. Tissue culture from the OR (12/05) showe d growth of staph aureus resistant to penicillin. Given these susceptibilities, vancomycin a nd metronidazole can be discontinued; patient can be started on IV cefazolin 2g q8h. We dimitris mmend continuing IV cefazolin as 6 weeks as an outpatient; however, if this is not feasible, the patient can take IV ceftriaxone 2g once daily instead. Plan for a stop date of 01/16 (6 weeks from date of surgery). Recommendations: 1. Discontinue IV Vancomycin and metronidazole 2. Start IV Cefazolin 2g q8h. Plan to treat for 6 weeks. 3. If IV Cefazolin is not an option, patient can take IV ceftriaxone 2g once daily. 4. Plan for a stop date of 01/16 (6 weeks from date of surgery). ID Attending Attestation Patient discussed on rounds with Hilda who is a 4th year medical student on the consult team. I agree with the assessment and recommendations outlined in her note from today. If cefazolin is not an option in the outpatient setting, ok to use ceftriaxone 2 grams IV daily in its place. Xaiver Mariscal MD ID Attending documented in this en counter Plan of Treatment Not on filedocumented as of this encounter Visit Diagnoses Not on filedocumented in this encounter
--- OUTSIDE RECORDS SUMMARY | ~2019-10-16 | XMS | Encounter Summary ---
Demographics + + + | Address | [address] | | | [place] [address] | + + + | Home Phone | | + + + | Preferred Language | Unknown | + + + | Marital Status | | + + + | Caodaism Affiliation | MET | + + + | Race | White | + + + | Ethnic Group | Not or | + + + Author + + + | Author | [facility] | + + + | Organization | [facility] | + + + | [...] Team Providers + +------+ + | Care State Farm Agent Name | Role | Phone | + [...] Description | +--------+---------+ + + + | 12/05/ | Surgery | 6A Intra Op [id number] | Casey Hewitt MD | explant of | | 2017 | | [address] [place] | [address] | cranioplasty; wound | | | | Rd [facility] | [facility] | [facility] | | | | Hospital Admitting | [place] [address] | | | | | Desk Located on the | [phone] | | | | | 9th floor | | | | | | [place], [place] | | | | | | [address] | | | +--------+---------+ + + + [...] + + + | Blood Pressure | 142/69 | 12/09/2017 5:20 PM | | | | | PDT | | + + + + + | Pulse | 83 | 12/09/2017 5:20 PM | | | | | PDT | | + + + + + | Temperature | 36.7 C (98.1 F) | 12/09/2017 5:20 PM | | | | | PDT | | + + + + + | Respiratory Rate | 14 | 12/09/2017 5:20 PM | | | | | PDT | | + + + + + | Oxygen Saturation | 92% | 12/09/2017 5:20 PM | | | | | PDT | | + + + + + | Inhaled Oxygen | - | - | | | Concentration | | | | + + + + + | Weight | 49.4 kg (109 lb) | 12/03/2017 11:06 PM | | | | | PDT | | + + + + + | Height | 149.9 cm (4' 11") | 12/03/2017 11:06 PM | | | | | PDT | | + + + + + | Body Mass Index | 22.02 | 12/03/2017 11:06 PM | | | | | PDT [...] encounter Discharge Summaries Marni Manning PA-C - 12/09/2017 1:50 PM PDTFormatting of this note might be differe nt from the original. NEUROSURGERY DISCHARGE SUMMARY: Patient: Cielo Bell Admission Date: 12/03/2017 Discharge Date: 12/09/2017 Attending Physician: Magnolia Diego MD PCP: No Pcp Per PATIENT Service: [facility] Neurosurgery Diagnoses Principal Final Diagnosis: Right-sided wound dehiscence and infection with epidural abscess S. Aureus infection Additional Diagnoses: Procedures 12/05 Explant of right frontal ventriculoperitoneal shunt and explant of synthetic cranioplasty Brief Hospital Course Cielo Bell is a 67 y.o. 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 This was complicated by hydrocephalus status post a Right frontal VPS (medium-press ure valve) in 2008 and eventual hardware erosion requiring synthetic cranioplasty in 2014. S he represented on 12/05 with purulent drainage from her cranioplasty wound and imaging evide nce of an epidural abscess. Our infectious disease team was consulted and she was started on broad spectrum antibitoics. She is now status post a wound washout and revision, craniopla sty explant, and VPS explant on 12/06. Intra-op there was a 2 x 2 cm opening in the skin fla p where the cranioplasty was exposed.The 2 x 2cm opening in the flap was approximated with 2 -0 nylon vertical mattress sutures and given the size a tensionless closure was not achieved . Given concern for wound viability our ENT colleagues were consulted and Dr. White saw and ev aluated the patient. Dr. White will plan to follow-up with her as an outpatient. The ENT offic e can be called at [phone] to schedule an appointment, if possible you can coordinate t he appointment when she has follow-up with neurological surgery on 12/23. Her intra op cultur es grew S. Aureus resistant to only vancomycin. Our infectious disease team narrowed her ant ibiotics to a once daily dose of Ceftriaxone with a duration of 6 weeks with anticipated sto p date of 01/16. During her hospital stay she remained neurologically intact and showed no signs of systemic illness. A discussion was had with patient and family regarding discharge. Patient did not wish to g o to a group home facility for ongoing IV antibiotic needs so outpatient infusion were arranged through [facility] in [place]. Patient is to go to the hospital for d aily infusion at the same time each day. Outpatient IV antibiotics were arranged and a ride was arranged with patients daughter and she was felt ready to discharge on 12/09/17. Of note, during her hospital say she did not have a BM, when discussing with patient she re ports her typical schedule is 1 BM every 5-6days. On exam patients abdomen had active bowel sounds and was non tender to palpation. She reported she has been passing gas however on abd ominal x ray there were concerns for a developing ileus or small bowel obstruction, patient was given mg citrate and she had a bowel movement. Diet Regular Regular diet- There are no restrictions to your diet. You may eat or drink whatever you pr efer, though healthy food choices are recommended. Activity -Avoid heavy lifting. Do not lift greater than 10lbs. Avoid repetitive bending and all stre nuous activity until further notice. -When up out of bed you must wear your protective helmet at ALL times. -No driving while taking oral narcotics/pain medications. Condition on Discharge Good PCP:No Pcp Per PATIENT When: Please follow-up with your primary care [...] changes Medication List START taking these medications bisacodyl 10 mg Supp Commonly known as: DULCOLAX Unwrap and insert 1 suppository rectally once daily as needed (2nd line for no BM in past 2 days or if not response to MIRALAX or if unable to tolerate oral). cefTRIAXone Solr Commonly known as: ROCEPHIN Inject 2 g into the vein (IV) every twenty-four hours. To be admixed per infusion pharmacy standard policy and/or procedure. polyethylene glycol 17 gram Pwpk Commonly known as: MIRALAX Mix 1 packet and take orally two times daily. Indications: constipation scopolamine 1 mg over 3 days Pt3d Commonly known as: TRANSDERM-SCOP Apply 1 patch to skin every seventy-two hours. Indications: Prevention of Post-Operative Na usea and Vomiting CHANGE how you take these medications aspirin EC 81 mg Tbec Take 1 tablet by mouth once daily. Do not restart aspirin until 2 weeks after surgery-12/20 What changed: additional instructions clopidogrel 75 mg Tab Commonly known as: PLAVIX Take 1 tablet by mouth once daily. Do not restart plavix until 2 weeks after surgery-12/20 What changed: additional instructions metoprolol succinate 50 mg Tb24 Commonly known as: TOPROL-XL Take 50 mg by mouth once daily. What changed: Another medication with the same name was removed. Continue taking this medi cation, and follow the directions you see here. ondansetron 8 mg Tab Commonly known as: ZOFRAN Take 1 tablet by mouth every twelve hours as needed for nausea/vomiting. What changed: medication strength how much to take reasons to take this CONTINUE taking these medications acetaminophen 325 mg Tab Commonly known as: TYLENOL Take 1-2 tablets by mouth every six hours as needed for moderate pain. atorvastatin 80 mg Tab Commonly known as: LIPITOR Take 80 mg by mouth once daily at bedtime. lisinopril 5 mg Tab Commonly known as: PRINIVIL Take 5 mg by mouth once daily. nicotine 21 mg/24 hr Pt24 Commonly known as: NICOTROL Apply 1 patch to skin once daily. senna-docusate 8.6-50 mg Tab Commonly known as: SENOKOT S Take 2 tablets by mouth twice daily as needed (take twice daily as long as you are taking n arcotic pain medication). spironolactone 25 mg Tab Commonly known as: ALDACTONE Take 25 mg by mouth once daily. STOP taking these medications oxyCODONE (immediate release) 5 mg Tab Commonly known as: ROXICODONE Wound Care: 1) Keep your incision site clean and dry. Make sure that you protect your incision when w earing glasses. 2) It is ok for you to shower and get your surgical incision wet, but do not submerge surg ical incision (bath, hot tub, swimming pool, etc). Please shampoo your hair and wash your in cision when you are cleared to do so. You should pat your incision dry with a clean towel. 3) It is important that dried blood be cleared from your incision. If there is any dried b lood remaining, clean the wound with a mixture of half strength hydrogen peroxide and warm w ater. 4) Please avoid placing creams or ointments directly on the incision even though it may it ch. 5) Your surgical incision is closed with egnoveva nd non absorbable sutures-these will be r emoved at your follow up on 12/23. 6) Monitor surgical site for evidence of warmth, redness, and drainage. Special Instructions/Tests: -Dr White saw patient while inpatient and he will plan to follow-up with her has an outpatien t. -Patient on IV abx for epidural abscess growing S. Aureus. Infusion being done at [facility] -Patient on DAPT for CO s/p stent. DAPT Can be resumed on 12/20 Condition On Discharge: Good Vital Signs at discharge as appropriate: BP: 145/77 (12/09/17 1308) Pulse: 73 (12/09/17 1308) Resp: 16 ( 1308) Weight: 49.4 kg (109 lb) (12/03/17 2306) Awake, alert and oriented to person, place, time, situation PERRL, gaze conjugate, EOMI, faces symmetric, TML Following commands, speech fluent Mnaasa, equal strength and sensation to light touch intact BUE/BLE Shoulder shrug symmetrical, no pronator drift Surgical incision c/d/i min blood product at proximal incision Abd: +BS, Non distended NTTP, no peritoneal signs Discharge Patient To: Home with outpatient IV abx through [facility] Does patient have a planned readmission: No Discharge Summary Completed?: Yes. 12/09/2017 Discharging Provider: Marni Manning PA-C Date Completed: 12/09/2017 Time Completed: 1:51 PM Discharging Attending: MD Marni Woods PA-C [place] [id number] [address] [id number] [phone] documented in t his encounter Medications at [...] + + + +---------+ + + | cefTRIAXone | Inject 2 g into the | 76 g | 0 | 12/10/19 | | | intravenous recon | vein (IV) every | | | 18 | 8 | | soln | twenty-four hours. | | | | | | | To be admixed per | | | | | | | infusion pharmacy | | | | | | | standard policy | | | | | | | and/or procedure. | | | | | + + + +---------+ + + documented as of this encounter Progress Notes Aniket Reilly RN - 12/09/2017 6:54 PM PDTDischarge instructions, new medications, appointme nt for IV abx infusion all reviewed with patient and confirmed with case management that inf usions set up at [facility]. Patient has had to BM's since 1529 today, had an abd ominal xray-confirmed with ANSON that OK to d/c patient. All belongings sent with patient, PICC line in place. Patient sent with extra incontinence pads for the 3 hour ride home. D/c to h ome with daughter in their vehicle. 6 :56 PM Marni Gallardo PA-C - 12/08/2017 8:46 AM PDTFormatting of this note might b e different from the original. NEUROLOGICAL SURGERY INPATIENT PROGRESS NOTE Hospital Day:5 Author: Marni Manning PA-C Attending Physician: Magnolia Diego MD Procedure Explant of right frontal ventriculoperitoneal shunt and explant of synthetic cran ioplastyon 12/06 Interval Hx: - No acute events overnight - WBC 10.02 (13) -VSS, AF - Intra-op cx; Prelim S. Aureus. On Vanco and Flagyl. Abx susceptibility's are back. -PICC placed yesterday -Plan for Dr. White's team to see patient today. This AM patient reports improved N/V. Has not had BM on admission, encouraged more aggressi ve bowel care, but pt denying it at this time. Spoke w nurse to encourage ambulation and bow el care. Physical Exam: Last Vitals: BP 141/65 | Pulse 84 | Temp 36.8 C (98.2 F) | RR 16 | Ht 1.499 m (4' 11") | Wt 49.4 kg (109 lb) | SpO2 94% | BMI 22.02 kg/(m^2) O2 Delivery Device: None (room air) (12/08/17 0700) 24 Hour Vital Min/Max: Systolic (24hrs), Av , Min:117 , Max:162 Diastolic (24hrs), Av, Min:59, Max:121 Pulse Min: 80 Max: 89 Temp Min: 36.5 C (97.7 F) Max: 37.1 C (98.8 F) Resp Min: 16 Max: 16 SpO2 Min: 88 % Max: 94 % Intake/Output Summary (Last 24 hours) at 12/08/17 0846 Last data filed at 12/07/17 2351 Gross per 24 hour Intake 1145.5 ml Output 0 ml Net 1145.5 ml Physical Exam: Awake, alert and oriented to person, place, time, situation PERRL, gaze conjugate, EOMI, faces symmetric, TML Following commands, speech fluent Manasa, equal strength and sensation to light touch intact BUE/BLE Shoulder shrug symmetrical, no pronator drift Surgical incision c/d/i new blood product along surgical incision at auricular area Abd: Non distended, Hypoactive BS, NTTP. Labs: CBC with diff last 72 hours (or 3 results) - Refreshable Recent Labs 12/07/17 0622 12/08/17 0513 WBC 13.50* 10.02 HB 10.7* 9.9* HCT 32.0* 29.4* PLT 321 296 Chemistries: Last 72 Hours (or 3 results) - Refreshable Recent Labs 12/05/17202512/05/177 12/07/17 1114 NA -- -- 137 K -- -- 5.0 CL -- -- 104 BICARB -- -- 22 BUN -- -- 17 EGFRAFRICAN -- -- >60 CR -- -- 0.67 GLU 68 130* 92 CA -- -- 8.4* PO4 -- -- 2.4 IMAGING: No new imaging ASSESSMENT: Cielo Bell is a 67 y.o. 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 This was complicated by hydrocephalus s/p Right frontal VPS (me dium-pressure valve) in 2008 and eventual hardware erosion requiring synthetic cranioplasty in 2014. She now presents with purulent drainage from her cranioplasty wound and imaging ginny dence of an epidural abscess. She is neurologically intact and shows no signs of systemic il lness. ID was consulted and she was started on broad spectrum abx. She is now s/p wound was hout and revision, cranioplasty explant, and VPS explant on 12/06 with intra op cultures mai wing gram S. Aureus. She reaming HD and neurologically stable on the floor. PLAN: Neurological: #Epidural brain abscess #Erosion of hardware s/p explant -ID Following; appreciate recs. Continue Vancomycin, Discontinue Cefepime 2g Q8, Transition Flagyl 500mg Q8 to PO per ID -ID planning for a likely 6 week duration. Awaiting finalized cx and sensitivities are resu lted. -Helmet when OOB - Continue acute care therapies - Pain control: tylenol prn, lidocaine patch - Monitor for acute neurologic changes - Nicotine patch and lozenges prn -E-mail sent to Dr. White re possible need for future flap and concern for wound healing; Dr. White's team should be seeing patient today 12/08. HEENT: Routine wound care Cardiovascular: Monitor BP and HR - CAD, HTN: metoprolol, lisinopril, spironolactone; atorvastatin Respiratory: IS, cough/deep breathe GI: Diet: Regular / Renal: 24-hour I/O goal: euvolemic ID/HO: Per above-epidural abscess - Anemia (likely chronic): will continue to monitor Endocrine: no active issues Musculoskeletal / Skin: No active issues. Routine decubitus ulcer prevention. Ambulate, PT/ OT DVT prophylaxis: SCDs while in bed, ambulate as able;prophylactic lovenox Disposition: Needs outpatient abx, PICC placed yesterday. Barrier to d/c is finalized cx/aw aiting ID finalized recs and awaiting Dr. White's team to eval patient. Marni Manning PA-C Neurological Surgery Pager [phone] Pager: [phone] obinson, Vangie Hannon PA-C - 12/07/2017 7:25 AM PDTFormatting of this note might be different from the orig inal. NEUROLOGICAL SURGERY INPATIENT PROGRESS NOTE Hospital Day:4 Author: Marni Manning PA-C Attending Physician: Magnolia Diego MD Procedure Explant of right frontal ventriculoperitoneal shunt and explant of synthetic cran ioplastyon 12/06 Interval Hx: - No acute events overnight -Bump in WBC 13-likely 2/2 acute phase reactant. Remains AF -VSS, AF - Intra-op cx; prelim +positive cocci.. . On Vanco/Cefepime/ Flagyl per ID -Plan is PICC placement today Physical Exam: Last Vitals: BP 117/62 | Pulse 87 | Temp 36.6 C (97.9 F) | RR 16 | Ht 1.499 m (4' 11") | Wt 49.4 kg (109 lb) | SpO2 89% | BMI 22.02 kg/(m^2) O2 Delivery Device: None (room air) (12/07/17 1003) 24 Hour Vital Min/Max: Systolic (24hrs), Av , Min:111 , Max:162 Diastolic (24hrs), Av, Min:58, Max:121 Pulse Min: 87 Max: 92 Temp Min: 36.6 C (97.9 F) Max: 37.4 C (99.3 F) Resp Min: 16 Max: 18 SpO2 Min: 83 % Max: 94 % Intake/Output Summary (Last 24 hours) at 12/07/17 1110 Last data filed at 12/07/17 0200 Gross per 24 hour Intake 970 ml Output 0 ml Net 970 ml Physical Exam: Awake, alert and oriented to person, place, time, situation PERRL, gaze conjugate, EOMI, faces symmetric, TML Following commands, speech fluent Manasa, equal strength and sensation to light touch intact BUE/BLE Shoulder shrug symmetrical, no pronator drift Surgical incision c/d/i small amount of blood product along surgical incision Labs: CBC with diff last 72 hours (or 3 results) - Refreshable Recent Labs 12/05/17 0523 12/07/17 0622 WBC 10.28 13.50* HB 11.4* 10.7* HCT 33.8* 32.0* PLT 339 321 Chemistries: Last 72 Hours (or 3 results) - Refreshable Recent Labs 12/05/17 0512/05/17202512/05/172226 NA 139 -- -- K 4.1 -- -- CL 106 -- -- BICARB 24 -- -- BUN 12 -- -- EGFRAFRICAN >60 -- -- CR 0.74 -- -- GLU 93 68 130* CA 8.4* -- -- IMAGING: No new imaging ASSESSMENT: Cielo Bell is a 67 y.o. 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 This was complicated by hydrocephalus s/p Right frontal VPS (me dium-pressure valve) in 2008 and eventual hardware erosion requiring synthetic cranioplasty in 2014. She now presents with purulent drainage from her cranioplasty wound and imaging ginny dence of an epidural abscess. She is neurologically intact and shows no signs of systemic il lness. ID was consulted and she was started on broad spectrum abx. She is now s/p wound was hout and revision, cranioplasty explant, and VPS explant on 12/06 with intra op cultures mai wing gram +cocci. She reaming HD and neurologically stable on the floor. PLAN: Neurological: #Epidural brain abscess #Erosion of hardware s/p explant -ID Following; appreciate recs. Continue Vancomycin, Discontinue ceftriaxone, Start Cefepime 2g Q8, Start Flagyl 500mg Q8 -ID planning for a likely 6 week duration; PICC placement today -Helmet when OOB - Continue acute care therapies - Pain control: tylenol prn, lidocaine patch - Monitor for acute neurologic changes - Nicotine patch and lozenges prn -E-mail sent to Dr. Whtie re possible need for future flap and concern for wound healing HEENT: Routine wound care Cardiovascular: Monitor BP and HR - CAD, HTN: metoprolol, lisinopril, spironolactone; atorvastatin Respiratory: IS, cough/deep breathe GI: Diet: Regular / Renal: 24-hour I/O goal: euvolemic ID/HO: Per above-epidural abscess - Anemia (likely chronic): will continue to monitor Endocrine: no active issues Musculoskeletal / Skin: No active issues. Routine decubitus ulcer prevention. Ambulate, PT/ OT DVT prophylaxis: SCDs while in bed, ambulate as able;prophylactic lovenox Disposition: Anticipate d/c with need for outpatient abx therapy. Plan for PICC placement t riccardo. Barrier to d/c is finalized cx. Marni Manning PA-C Neurological Surgery Pager [phone] Pager: [phone] Associated attestation - Casey Hewitt MD - 12/07/2017 2:59 PM PDT67 y/o female developed infection secondary to skin breakdown over the cranioplasty flap and taken to OR for I&D. - Infection of the skin flap from previous cranioplasty requiring I&D of the area MD Nigel Capps Melissa P, PA-C - 12/06/2017 8:40 AM PDTFormatting of this note might be differe nt from the original. NEUROLOGICAL SURGERY INPATIENT PROGRESS NOTE Hospital Day:3 Author: Marni Manning PA-C Attending Physician: Magnolia Diego MD Procedure Explant of right frontal ventriculoperitoneal shunt and explant of synthetic cran ioplastyon 12/06 Interval Hx: - No acute events overnight - Intra-op cx; in process. Remains AF. On Vanco/Cefepime. ID consulted. Physical Exam: Last Vitals: BP 107/53 | Pulse 88 | Temp 36.4 C (97.5 F) | RR 16 | Ht 1.499 m (4' 11") | Wt 49.4 kg (109 lb) | SpO2 93% | BMI 22.02 kg/(m^2) O2 Delivery Device: Oxymask (12/06/17 0421) 24 Hour Vital Min/Max: Systolic (24hrs), Av , Min:107 , Max:165 Diastolic (24hrs), Av, Min:53, Max:83 Pulse Min: 73 Max: 95 Temp Min: 36.2 C (97.2 F) Max: 36.7 C (98.1 F) Resp Min: 14 Max: 25 SpO2 Min: 88 % Max: 100 % Intake/Output Summary (Last 24 hours) at 12/06/17 0842 Last data filed at 12/06/17 0300 Gross per 24 hour Intake 1000 ml Output 30 ml Net 970 ml Physical Exam: Awake, alert and oriented to person, place, time, situation PERRL, gaze conjugate, EOMI, faces symmetric, TML Following commands, speech fluent Manasa, equal strength and sensation to light touch intact BUE/BLE Shoulder shrug symmetrical, no pronator drift Surgical incision c/d/i Labs: CBC with diff last 72 hours (or 3 results) - Refreshable Recent Labs 12/03/17 2330 12/05/17 0523 WBC 12.22* 10.28 HB 11.7* 11.4* HCT 34.6* 33.8* PLT 313 339 Chemistries: Last 72 Hours (or 3 results) - Refreshable Recent Labs 12/03/17 2330 12/05/17 0524 12/05/17202512/05/17 2227 NA 138 139 -- -- K 4.1 4.1 -- -- CL 106 106 -- -- BICARB 23 24 -- -- BUN 12 12 -- -- EGFRAFRICAN >60 >60 -- -- CR 0.63 0.74 -- -- GLU 106* 93 68 130* CA 8.5* 8.4* -- -- IMAGING: No new imaging ASSESSMENT: Cielo Bell is a 67 y.o. 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 This was complicated by hydrocephalus s/p Right frontal VPS (me dium-pressure valve) in 2008 and eventual hardware erosion requiring synthetic cranioplasty in 2014. She now presents with purulent drainage from her cranioplasty wound and imaging ginny dence of an epidural abscess. She is neurologically intact and shows no signs of systemic il lness. ID was consulted and she was started on broad spectrum abx. She is now s/p wound was hout and revision, cranioplasty explant, and VPS explant on 12/06 with intra op cultures in process; recovering well. PLAN: Neurological: #Epidural brain abscess #Erosion of hardware s/p explant -ID Following; appreciate recs. Continue Vancomycin, Discontinue ceftriaxone, Start Cefepime 2g Q8, Start Flagyl 500mg Q8 -ID planning for a likely 6 week duration; consult for PICC placement -Helmet when OOB - Continue acute care therapies - Pain control: tylenol prn, lidocaine patch - Monitor for acute neurologic changes - Nicotine patch and lozenges prn -F/u plastics recs HEENT: Routine wound care Cardiovascular: Monitor BP and HR - CAD, HTN: metoprolol, lisinopril, spironolactone; atorvastatin Respiratory: IS, cough/deep breathe GI: Diet: Regular / Renal: 24-hour I/O goal: euvolemic ID/HO: Per above-epidural abscess - Anemia (likely chronic): will continue to monitor Endocrine: no active issues Musculoskeletal / Skin: No active issues. Routine decubitus ulcer prevention. Ambulate, PT/ OT DVT prophylaxis: SCDs while in bed, ambulate as able; hold prophylactic lovenox may resume POD#2 if not ambulating Disposition: Anticipate d/c with need for outpatient abx therapy. Plan for PICC placement t riccardo. Marni Manning PA-C Neurological Surgery Pager [phone] Pager: [phone] Bari Paulino MD - 12/05/2017 10:32 PM PDT Neurosurgery Post-Op Check 12/05/2017 10:32 PM S: Pt examined in PACU Pt is s/p explant of VPS and cranioplasty O: Last 24 hour min/max Temp: 36.6 C (97.9 F) Temp Min: 36.6 C (97.9 F) Max: 36.8 C (98.2 F) Heart Rate: 95 Pulse Min: 73 Max: 95 Resp: 16 Resp Min: 16 Max: 20 BP: 126/83 BP Min: 100/69 Max: 134/67 SpO2: 96 % SpO2 Min: 90 % Max: 96 % Body mass index is 22.02 kg/m. Eyes open spont, oriented x 2/3, speech fluent, participates in exam Pupils: PERRl, EOMI, FS, protecting airway Follows commands x 4 symmetrically SILT Incision cdi Bari Cameron MD PGY-5 Neurological Surgery Pager [phone] signed by Bari Cameron MD at 12/05/2017 10:38 PM Almita Nguyen AGACNP - 12/05/2017 2:41 PM PDT NEUROLOGICAL SURGERY INPATIENT PROGRESS NOTE Hospital Day:2 Author: ELAINE Bee Attending Physician: Magnolia Diego MD Interval Hx: - No acute events overnight - AF, WBC WNL - Plan is for OR this evening for hardware and VPS explant, wound washout and revision Physical Exam: Last Vitals: BP 116/77 | Pulse 73 | Temp 36.7 C (98.1 F) | RR 16 | Ht 1.499 m (4' 11") | Wt 49.4 kg (109 lb) | SpO2 93% | BMI 22.02 kg/(m^2) O2 Delivery Device: None (room air) (12/05/17 1330) 24 Hour Vital Min/Max: Systolic (24hrs), Av , Min:100 , Max:141 Diastolic (24hrs), Av, Min:67, Max:77 Pulse Min: 73 Max: 95 Temp Min: 36.7 C (98.1 F) Max: 37 C (98.6 F) Resp Min: 16 Max: 20 SpO2 Min: 90 % Max: 93 % Intake/Output Summary (Last 24 hours) at 12/05/17 1442 Last data filed at 12/05/17 0818 Gross per 24 hour Intake 20 ml Output 0 ml Net 20 ml Physical Exam: Awake, alert and oriented to person, place, time, situation PERRL, gaze conjugate, EOMI, faces symmetric, TML Following commands, speech fluent [place], equal strength and sensation to light touch intact BUE/BLE Surgical incision dehisced, purulent discharge Shoulder shrug symmetrical, no pronator drift Labs: CBC with diff last 72 hours (or 3 results) - Refreshable Recent Labs 12/03/17 2330 12/05/17 0523 WBC 12.22* 10.28 HB 11.7* 11.4* HCT 34.6* 33.8* PLT 313 339 Chemistries: Last 72 Hours (or 3 results) - Refreshable Recent Labs 12/03/17 2330 12/05/17 0524 NA 138 139 K 4.1 4.1 CL 106 106 BICARB 23 24 BUN 12 12 EGFRAFRICAN >60 >60 CR 0.63 0.74 GLU 106* 93 CA 8.5* 8.4* No new cultures. Current Medications: acetaminophen (TYLENOL) tablet 325-650 mg, 325-650 mg, oral, Q6H PRN atorvastatin (LIPITOR) tablet 80 mg, 80 mg, oral, HS bisacodyl (DULCOLAX) suppository 10 mg, 10 mg, rectal, DAILY PRN hydrocortisone 1 % cream, , topical, BID influenza high-dose vaccine (FLUZONE HIGH-DOSE) (PF) IM injection (age 65 years or greater) 0.5 mL, 0.5 mL, intramuscular, Day of Discharge lidocaine (LIDODERM) 5 % patch 1 patch, 1 patch, transdermal, Q24H lisinopril (PRINIVIL) tablet 5 mg, 5 mg, oral, DAILY metoprolol tartrate (LOPRESSOR) tablet 50 mg, 50 mg, oral, DAILY NaCl 0.9%-KCl 20 mEq/L IV infusion, , intravenous, CONTINUOUS nicotine (NICOTROL) 14 mg/24 hr 1 patch, 1 patch, transdermal, DAILY nicotine polacrilex (COMMIT) lozenge 2 mg, 2 mg, oral, Q1H PRN polyethylene glycol (MIRALAX) packet 34 g, 34 g, oral, TID PRN senna-docusate (SENOKOT S) 8.6-50 mg 1 tablet, 1 tablet, oral, BID spironolactone (ALDACTONE) tablet 25 mg, 25 mg, oral, DAILY IMAGING: No new imaging ASSESSMENT: Cielo Bell is a 67 y.o. 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 This was complicated by hydrocephalus s/p Right frontal VPS (me dium-pressure valve) in 2008 and eventual hardware erosion requiring synthetic cranioplasty in 2014. She now presents with purulent drainage from her cranioplasty wound and imaging ginny dence of an epidural abscess. Fortunately she is neurologically intact and shows no signs of systemic illness. Plan for OR today for wound washout and revision, cranioplasty explant, a nd VPS explant. PLAN: Neurological: - Continue acute care therapies - Pain control: tylenol prn, lidocaine patch - Monitor for acute neurologic changes - Nicotine patch and lozenges prn HEENT: Routine wound care Cardiovascular: Monitor BP and HR - CAD, HTN: metoprolol, lisinopril, spironolactone; atorvastatin Respiratory: IS, cough/deep breathe GI: Diet: NPO for OR today; bowel regimen, anti-emetics / Renal: 24-hour I/O goal: euvolemic ID/HO: - ID consulted to evaluate post-op for cranial abscess, wound infection, meningitis - Awaiting start of abx regimen until samples can be taken in OR, then will most likely sta rt vanco and ceftriax empirically until culture/sensitivites finalized - Anemia (likely chronic): will continue to monitor Endocrine: no active issues Musculoskeletal / Skin: No active issues. Routine decubitus ulcer prevention. Ambulate, PT/ OT DVT prophylaxis: SCDs while in bed, ambulate as able; hold prophylactic lovenox for OR tod ay, may resume POD#2 if not ambulating Disposition: Pending post-op course, on add-on list for today; plan is for cranioplasty and VPS explant, wound washout and revision ELAINE Bee Neurological Surgery [facility] [address] [address] [address] Pager: [phone] Dillan Somers MD - 12/04/2017 5:05 PM PDTNeurosurgery Preoperative Note Planned procedure: Explant of cranioplasty, wound washout, possible removal of VPS, possibl e R vs L EVD Date of procedure: 12.05.17 Booked? Yes Consented? Yes Marked? Yes NPO time: midnight tonight Labs/Studies Hct: 35 Plt: 313 WBC: 12 Na: 138 K: 4 Type and Screen obtained? Yes INR: 1.07 If over 50, EKG obtained this admission (Yes/No/NA)? Yes Medications If on Lovenox, stopped the day prior to surgery (Yes/No/NA)? NA On ASA or other antiplatelet agent? Yes, last dose 12.04 at 7am Dillan Bridges MD Neurosurgery, PGY-1 Pager [phone] Dillan Somers MD - 12/04/2017 9:23 AM PDT NEUROSURGERY PROGRESS NOTE 12/04/2017 Hospital Day #: 1 Attending: Manas Spear MD Interval Events: -admitted overnight for epidural abscess and rebecca pus coming from wound Objective: Last Vitals: BP 136/68 | Pulse 101 | Temp 36.6 C (97.9 F) | RR 18 | Ht 1.499 m (4' 11") | Wt 49.4 kg (109 lb) | SpO2 93% | BMI 22.02 kg/(m^2) 24 Hour Vital Min/Max: Systolic (24hrs), Av , Min:129 , Max:136 Diastolic (24hrs), Av, Min:68, Max:77 Pulse Min: 90 Max: 101 Temp Min: 36.1 C (97 F) Max: 36.6 C (97.9 F) Resp Min: 18 Max: 18 SpO2 Min: 93 % Max: 94 % Intake/Output Summary (Last 24 hours) at 12/04/17 0924 Last data filed at 12/04/17 0400 Gross per 24 hour Intake 607.5 ml Output 0 ml Net 607.5 ml Physical Exam: Awake, alert, oriented to self, time, place, situation Following commands briskly Speech fluent PERRL EOMI Facial sensation intact Face symmetric Shoulder shrug equal bilaterally Tongue midline Strength: No pronator drift RUE: 5 D/B/T/HG LUE: 5 D/B/T/HG RLE: 06/25 HF/KE/DF/PF LLE: 06/25 HF/KE/DF/PF SILT Incision dehisced, with rebecca pus Labs: Lab Results Component Value Date/Time NA 138 12/03/2017 11:30 PM NA 142 05/14/2008 07:42 AM K 4.1 12/03/2017 11:30 PM K 4.3 05/14/2008 07:42 AM CR 0.63 12/03/2017 11:30 PM CR 0.89 05/14/2008 07:42 AM HCT 34.6 (L) 12/03/2017 11:30 PM HCT 33.1 (L) 05/14/2008 07:42 AM WBC 12.22 (H) 12/03/2017 11:30 PM WBC 7.5 05/14/2008 07:42 AM PLT 313 12/03/2017 11:30 PM PLT 306 05/14/2008 07:42 AM Current Facility-Administered Medications Medication Dose Route Frequency acetaminophen (TYLENOL) tablet 325-650 mg 325-650 mg oral Q6H PRN bisacodyl (DULCOLAX) suppository 10 mg 10 mg rectal DAILY PRN hydrocortisone 1 % cream topical BID influenza high-dose vaccine (FLUZONE HIGH-DOSE) (PF) IM injection (age [address]) 0.5 mL 0.5 mL intramuscular Day of Discharge lidocaine (LIDODERM) 5 % patch 1 patch 1 patch transdermal Q24H metoprolol succinate (TOPROL-XL) tablet 25 mg 25 mg oral DAILY NaCl 0.9%-KCl 20 mEq/L IV infusion intravenous CONTINUOUS nicotine (NICOTROL) 14 mg/24 hr 1 patch 1 patch transdermal DAILY nicotine polacrilex (COMMIT) lozenge 2 mg 2 mg oral Q1H PRN polyethylene glycol (MIRALAX) packet 34 g 34 g oral TID PRN pravastatin (PRAVACHOL) tablet 20 mg 20 mg oral HS senna-docusate (SENOKOT S) 8.6-50 mg 1 tablet 1 tablet oral BID Imaging: ASSESSMENT: Cielo Bell is a 67 y.o. 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 This was complicated by hydrocephalus s/p Right frontal VPS (me dium-pressure valve) in 2008 and eventual hardware erosion requiring synthetic cranioplasty in 2014. She now presents with purulent drainage from her cranioplasty wound and imaging ginny dence of an epidural abscess. Fortunately she is neurologically intact and shows no signs of systemic illness. This will ultimately require washout and hardware explant, potential shun t explant as well. Plan for OR tomorrow. PLAN: - OK for diet now, NPO @ midnight tonight 10.14 for OR tomorrow Please page [phone] with any questions or concerns. Dillan Bridges MD Neurosurgery, PGY-1 Pager [phone] Associated attestation - Casey Hewitt MD - 12/05/2017 9:30 AM PDTI have seen and examine d the patient. I agree with the resident's documentation and have documented any additions or exceptions. Casey Hewitt MD documented in this encounter H&P Notes Vickie Estrada MD,MPH - 12/03/2017 9:56 PM PDTFormatting of this note might be different f rom the original. NEUROSURGERY HISTORY AND PHYSICAL Author: Vickie Estrada MD,MPH Attending Physician: Manas Spear MD PCP: Remington Leroy Md, MD HPI: Cielo Bell is a 67 y.o. female with CAD s/p CO, HTN, GERD, tobacco use, a nd a long neurosurgical history well known to our service. In brief, she presented in 09/2007 with HH4F3 SAH due to a ruptured AComm aneurysm, s/p Right pterional craniotomy for clippin g. She re-presented with hydrocephalus and had a Right frontal VPS placed in 03/2008 (medium- pressure valve.) This shunt has been tapped once, for concern of infection, and never revise d. She reports today that at some point it was deemed "non-functional" but there is no clear documentation of this. She re-presented again with erosion of a cranial plating screw throu gh her scalp and associated cranial defect, and was taken for a synthetic cranioplasty in 2015. She has been doing well since then, with no headaches or focal neurologic deficits; sh leonides manages all of her own ADLs at home. About 3 days prior to this admission, she reports that she developed a sudden, severe heada ha without clear inciting event. She describes this as "like when I had my aneurysm," altho ugh she did not associated it with any other symptoms at the time. Later in that same day, s he washed her hair and while combing it out, felt a sudden oozing of purulent material from her Right frontal wound. This drained copiously for the rest of the day before her family br ought her to [place] for evaluation. There, a head CT was notable for an epidural air an d fluid collection consistent with abscess, for which she was transferred to [facility] for neuros urgical management. On arrival here she now denies headache, as well as fever/chills, nausea/vomiting, or focal neurologic concerns including weakness, numbness, or tingling. Her head has been wrapped wi th clean gauze and is no longer actively draining. She does endorse a history of ASA 81 give n her prior CO, with her last dose being this morning. PMH: Past Medical History: Diagnosis Date Abnormal LFTs (liver function tests) Benign neoplasm of major salivary glands CAD in [place] artery s/p NSTEMI 12/27/2014; status post stent placement in the mid LAD Chronic pain Continuous tobacco abuse COPD on oxygen at night CVA (cerebral vascular accident) ([facility]) 2007 Essential hypertension GERD (gastroesophageal reflux disease) Goiter MRSA (methicillin resistant staph aureus) culture positive post cariotomy for SAH Otitis media recent abx preadmit Subarachnoid hemorrhage due to ruptured aneurysm ([facility]) 2007 Tobacco dependence PSH: Past Surgical History Procedure Date Partial thyroidectomy Hysterectomy Cholecystecomy Bladder suspension 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 [employer] shunt Tympanoplasty 1987 Lumpectomy of left breast 1979 Coronary stent placement 12/28/2014 status post stent placement in the mid LAD Social History: Social History Social History Marital status: Spouse name: N/A Number of children: N/A Years of education: N/A Occupational History Not on file. Social History Main Topics Smoking status: Current Every Day Smoker Packs/day: 1.00 Years: 47.00 Types: Cigarettes Smokeless tobacco: Never Used Comment: quit for 1 year Alcohol use No Drug use: No Sexual activity: No Other Topics Concern Not on file Social History Narrative Lives alone. February 2012. Family History: Family History Problem Relation Cancer Brother lung Cancer Father brain Additional Family History Mother dementia Medications: Current Facility-Administered Medications: acetaminophen (TYLENOL) tablet 325-650 mg, 325-6 50 mg, oral, Q6H PRN, Tommie Zarco MD bisacodyl (DULCOLAX) suppository 10 mg, 10 mg, rectal, DAILY PRN, Tommie Zarco MD hydrocortisone 1 % cream, , topical, BID, Vickie Estrada MD,MPH influenza high-dose vaccine (FLUZONE HIGH-DOSE) (PF) IM injection (age 65 years or greater) 0.5 mL, 0.5 mL, intramuscular, Day of Discharge, Manas Spear MD lidocaine (LIDODERM) 5 % patch 1 patch, 1 patch, transdermal, Q24H, Vickie Estrada MD,MPH, 1 patch at 12/04/177 metoprolol succinate (TOPROL-XL) tablet 25 mg, 25 mg, oral, DAILY, Vickie Estrada MD,MPH NaCl 0.9%-KCl 20 mEq/L IV infusion, , intravenous, CONTINUOUS, Tommie Zarco MD, Last Rate : 75 mL/hr at 12/04/175 nicotine (NICOTROL) 14 mg/24 hr 1 patch, 1 patch, transdermal, DAILY, Vickie Estrada MD,MPH nicotine polacrilex (COMMIT) lozenge 2 mg, 2 mg, oral, Q1H PRN, Vickie Estrada MD,MPH polyethylene glycol (MIRALAX) packet 34 g, 34 g, oral, TID PRN, Tommie Zarco MD pravastatin (PRAVACHOL) tablet 20 mg, 20 mg, oral, HS, Vickie Estrada MD,MPH senna-docusate (SENOKOT S) 8.6-50 mg 1 tablet, 1 tablet, oral, BID, Tommie Zarco MD Allergies: Allergies Allergen Reactions [place] Tar Hives Betadine [Povidone-Iodine (With Soap)] Unknown Cipro [Ciprofloxacin] Nausea and Vomiting Codeine Hcl Nausea and Vomiting Sulfa (Sulfonamide Antibiotics) Erythema Exam: BP 129/75 | Pulse 101 | Temp 36.1 C (97 F) | RR 18 | Ht 1.499 m (4' 11") | Wt 49.4 kg ( 109 lb) | SpO2 94% | BMI 22.02 kg/(m^2) Awake, alert, oriented to self, time, place, situation Following commands briskly Speech fluent PERRL EOMI Face symmetric Shoulder shrug equal bilaterally Tongue midline Strength: No pronator drift RUE: 06/25 D/B/T/HG LUE: 06/25 D/B/T/HG RLE: 06/25 HF/KE/DF/PF LLE: 06/25 HF/KE/DF/PF SILT 3x3cm area of dehiscence with rebecca purulence noted to Right frontal incision, no palpable fluctuance or erythema noted Labs: Chemistries: Recent Labs 12/03/17 2330 NA 138 K 4.1 CL 106 BICARB 23 BUN 12 CR 0.63 CA 8.5* CBC with diff: Recent Labs 12/03/17 2330 WBC 12.22* HB 11.7* HCT 34.6* PLT 313 Coags: Lab Results Component Value Date APTT 31.8 12/03/2017 FIBRINOGEN 432 10/18/2007 CBG's: Recent Labs 12/03/17 2330 GLU 106* Imaging: OUT HEAD WO CONTRAST 12/02/2017 19:28 Assessment and Plan: Cielo Bell is a 67 y.o. 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 This was complicated by hydrocephalus s/p Right frontal VPS (me dium-pressure valve) in 2008 and eventual hardware erosion requiring synthetic cranioplasty in 2014. She now presents with purulent drainage from her cranioplasty wound and imaging ginny dence of an epidural abscess. Fortunately she is neurologically intact and shows no signs of systemic illness. This will ultimately require washout and hardware explant. - Admit to 10K - Labs: CBC, electrolytes, coags, type & screen, blood cultures, ESR/CRP - Hold ASA 81 - No further imaging for now - OK for diet now, NPO @ midnight in case of OR tomorrow - Further operative plan per staff This case has been discussed with Dr. Antoinette Adkins, chief neurosurgical resident on-call, a nd will be staffed with Dr. Magnolia Diego, attending neurological surgeon, on AM rounds. Please contact the Neurosurgery resident on-call pager [phone] with questions or concerns. Vickie Estrada M.D., M.P.H. R2 Resident Physician Neurological Surgery Pager: [phone] signed by Magnolia Diego MD at 12/20/2017 11:00 AM PDTdocumented i n this encounter Procedure Notes Laura Nunez RN - 12/07/2017 11:59 AM PDTAssociated Order(s): PICC LINE PICC LINE Performed by: LAURA NUNEZ Authorized by: MAGNOLIA DIEGO PICC/Midline Insertion Procedure Note Indications:Antibiotics Procedure location: Unit:10 Room: 17 Providers: Attending name: Attending physically present: No PICC Nurse name: Laura Nunez RN,BSN,VAT Assisted by Francia kumari RN,VAT Pre-Procedure Consent: written consent obtained Consent given by: Patient Patient identity confirmed per protocol: Yes Team Pause: Immediatly prior to the procedure a pause per protocol was called. A pause veri fies correct patient, procedure, equipment, customer support assistant and site/side marked as required. CLABSI Prevention Bundle: Skin preparation: Chloraprep Protective barrier: Cap, Mask, Hand scrub, Gown, Gloves and Full body drape. Cap and mask worn by assistive personnel.Sterile Ultrasound techniques (sterile gel, and sterile probe c over) used Dressing: Dressing applied prior of removal of full barrier drape and hemost atic agent applied Procedure Details Patient was placed in appropriate position The vascular anatomy was identified by Ultrasound Guidance.wire through the needle, introdu cer over the wire, then catheter through the introducer Tip was placed using TLS (Tip Locati ng System) and TPS (Tip Positioning System). . A non-tunneled PICC Single lumen 4 Fr was placed in the Right Arm area Basilic vein. Cat heter lot number: [id number] with a length of 55 cm was selected and trimmed 15 to a remain ing length of 40 cm All ports aspirated for blood and flushed with saline Procedure comments: Arm circ= 27 cm Vessel diameter = .51 Power-injectable line: yes Attempts 1 attempt(s) were made Complications None PICC catheter tip location Chest radiograph ordered to verify placement and Line verified by radiograph Adjustments made after chest film obtained: none External measurement of catheter exposed: 1 cm. PICC catheter tip location: Cavo-Atrial Junction Estimated blood loss: <10mL Yanni Nunez RN Casey Guerrier MD - 12/06/2017 2:12 AM PDTAssociated Order(s): OPERATION RECORDDate of Stevie olson: 12/05/2017 Attending Surgeon:Casey Hewitt MD Heater Engineer Helper(s):Bari Cameron MD. Preoperative Diagnosis: Right-sided wound dehiscence and infection with epidural abscess. Postoperative Diagnosis: Right-sided wound dehiscence and infection with epidural abscess. Procedure: Removal of the right-sided previous cranioplasty, removal of the right-sided ve ntriculoperitoneal shunt, evacuation of the right-sided epidural abscess and wound washout w ith debridement of the wound. Brief Clinical History: Cielo Bell is a 67-year-old female who initially presented wit h a subarachnoid hemorrhage secondary to an aneurysm rupture where the patient was taken wallace n to the OR for clipping with decompressive craniectomy. The patient had a long recovery wi th a shunt placement and cranioplasty placement. The patient's cranioplasty was complicated with a portion of the cranioplasty eroding through the skin previously. This has been repa ired. Currently, the patient is presenting with pus coming out of her skin. She has the cr anioplasty exposed. We discussed with the patient regarding the removal of the shunt and th e cranioplasty plate. We explained the risks, benefits, and alternatives of the procedure. The patient wanted to proceed with surgery, and informed consent was obtained. Procedure Details: The patient was brought in the operating room where a formal time-out w as performed with MRN, date of and name of the patient while the nursing, surgical and anesthesia staff were present in the operating room. Next, the patient was transferred to the operating table, and generalized anesthesia was induced by the anesthesia team with an e ndotracheal tube. All of the possible compression spots were padded appropriately. SCDs we re placed for DVT prophylaxis. The patient received antibiotics after the cultures were sen t. Next, the patient's head was turned to the left side, bringing the right side in the ina gical field. We also prepped the patient sterilely for removal of the abdominal catheter of the ventriculoperitoneal shunt. Next, the patient's previous incision was prepped and drap ed in the usual sterile fashion after the hair along the incision line was clipped with a posadas ir clipper. There was a 2 x 2 cm opening in the skin flap where the cranioplasty was expose d. This was in the middle of the skin flap away from the incision. We opened the incision with a scalpel down to bone. The tissues were retracted anteriorly. This exposed the previ ous cranioplasty plate. We removed all of the titanium plates and screws. Before the remov al of the cranioplasty plate, initially, we removed the shunt. The proximal catheter was se nt for cultures. Then we removed the valve and the distal catheter. The distal catheter sn apped. For that reason, we went to the abdomen. We made a small incision at the previous i ncision. We found the abdominal catheter. We removed it from the peritoneum. We pulled it superiorly, which again snapped. There is probably a retained small catheter somewhere in the previously-tunneled tract along the chest. We left it in place. Then, we turned our at tention to the removal of the cranioplasty plate. The cranioplasty plate was removed. All of the screws and the titanium plates were removed. There was a thick grumous pus-looking t issue collection at the epidural space. All of this was debrided until the live and bleedin g tissue was observed. This was sent for cultures. There was basically a 2 x 2 cm hole in the middle of the skin flap. We started the closure after the wound was irrigated with a co pious amount of antibiotic irrigation. The abdominal incision was closed with nylon sutures , and we used Vicryl sutures for the galeal closure of the cranial incision and then genoveva for the skin. The 2 x 2 opening in the flap was approximated with 2-0 nylon vertical mattr ess sutures. We tried to obtain a tensionless closure, especially in the open parts, but th is was challenging given a significant amount of tissue was missing. Then all of the incisi ons were dressed appropriately, and the patient was awakened from anesthesia. The patient w as found to be in her normal neurological baseline. All of the needle and sponge counts wer e correct. There were no known intraoperative complications. I was present and scrubbed du ring the entire procedure. Anesthesia: Generalized anesthesia. Drains: None. Urine Output And Fluids: Per anesthesia records. Estimated Blood Loss: 100 cc. Specimens: Multiple cultures were sent including the proximal catheter of the shunt and ep idural pus-looking collection. MD CASSANDRA Capps/MODPatricia /[id number] signed by Casey Hewitt MD at 12/07/2017 7:53 PM PD Bari Ying MD - 12/05/2017 10:14 PM PDTAssociated Order(s): PROCEDURE NOTENeurosurgery Brief Operative Note 12/05/2017 10:14 PM Patient: Cielo Bell Consent: Prior to the beginning of the procedure the team paused to verify the patient's identity, a s well as the procedure to be performed and the correct side/site. All equipment required w as ready and available. The patient was positioned appropriately. The following sales team leader s were present during the team pause: Neurosurgery, Anesthesiology, OR nursing staff. Surgeon: Casey Hewitt MD Heater Engineer Helper: Bari Cameron MD Pre-op Diagnosis: Cranioplasty infection with epidural abscess Post-op Diagnosis: Same Procedure: Explant of right frontal ventriculoperitoneal shunt and explant of synthetic cranioplasty EBL: 30 mL Fluids: see anesthesia encounter Specimen: epidural swabs, epidural tissue, and proximal shunt + valve to microbiology Complications: none Drain: none Destination: stable to PACU then floor Findings: Dense yellow adherent epidural phlegmon, which was debrided; no significant involvement of subgaleal space or shunt; small abdominal incision to explant intra-abdominal catheter; dist al catheter fractured on explant, so a portion of tunneled shunt remains orphaned; 2L of ant ibiotic-containing irrigation used; incision closed with genoveva; dehiscent area could not b e closed without tension and so it was closed tenuously with horizontal mattress nylons. Brief Plan: - Floor - HOB ad cadence - CT head - Neuro checks, will watch for shunt failure - Ceftriaxone + vanc per ID recs - Follow cx - Anticipate we will consult plastics surgery Bari Cameron MD PGY-5 Neurological Surgery Pager [phone] Associated attestation - Casey Hewitt MD - 12/05/2017 10:44 PM PDTI was present and scrub bed during the entire procedure. Herminia Cappsocumented in this encounter Consult Notes Tika Mejia MD - 12/09/2017 12:[address] [facility] Infectious Diseases OPAT Referral for Discharge Planning Team A: OPAT RN Sheryl Rowan, Office: [phone], Pager: [phone] ID Diagnosis: Cranial osteomyelitis, s/p removal of infected cranioplasty Antibiotic agent and dosing: Antimicrobials Antibiotic Dose, route, frequency Duration Effective Start Date Anticipated Stop Date date calculator Comments Ceftriaxone 2g IV q 24 hours 6 weeks 12/05/17 01/16/18 OPAT labs: weekly CBC with Differential and CMP Potential safe infusion settings from ID perspective yes : Home infusion yes : Infusion center yes : SNF yes : LTACH yes : In hospital n/a : Hemodialysis Barriers to safe OPAT: reports some anxiety about home infusion; lives alone with some fami ly support Vascular Access: Ok to place PICC Follow Up: [facility] ID faculty with preference to schedule with Dr. Mejia, Any available f gilbert or next available OPAT provider in 3 weeks post hospital discharge. Same day appointment coordination with: Neurosurgery if possible Imaging prior to ID follow up: none ID: Please route your note to the "p OPAT/infectious Diseases Clinic" pool Developmental Education Instructor: For all patients requiring IV antibiotic therapy, please route your OPAT Bj n of Care Note (.CMOPAT) to [facility] "p OPAT/Infectious Diseases clinic" Pool at discharge. Ple ase communicate to primary team that you will be notifying Infectious Diseases of the OPAT P tom of Care. ochristina, Maite - 3:08 PM PDT INPATIENT INFECTIOUS DISEASE PROGRESS NOTE ID TEAM: A Patient: Cielo Bell PCP: No Pcp Per PATIENT Author: Maite Stevens Date of Admission: 12/03/2017 Hospital Day: 5 Interval Events: -OR tissue cx show staph aureus resistant to penicillin Physical Exam: Last Vitals: BP 124/65 | Pulse 73 | Temp 36.6 C (97.9 F) | RR 14 | Ht 1.499 m (4' 11") | Wt 49.4 kg (109 lb) | SpO2 88% | BMI 22.02 kg/(m^2) 24 Hour Vital Min/Max: Systolic (24hrs), Av , Min:124 , Max:141 Diastolic (24hrs), Av, Min:65, Max:69 Pulse Min: 73 Max: 85 Temp Min: 36.3 C (97.3 F) Max: 37.1 C (98.8 F) Resp Min: 14 Max: 16 SpO2 Min: 88 % Max: 94 % Intake/Output Summary (Last 24 hours) at 12/08/17 1508 Last data filed at 12/08/17 1427 Gross per 24 hour Intake 2468.75 ml Output 0 ml Net 2468.75 ml General Appearance: comfortable, NAD, resting in bed HEENT: Right sided cranial dressing in place. No purulent or foul smelling discharge. EOMI, no conjunctival petechiae, no scleral icterus; Clear mucus membranes, good dentition. Neck: supple, no neck masses noted Respiratory: good respiratory effort; clear to auscultation bilaterally, no wheezes, crackl es Cardiovascular: regular rate and rhythm with no murmurs Gastrointestinal: +BS, soft, non tender, non distended Skin: Warm, well perfused, no ecchymoses, no rashes Extremities: no dependent edema, normal muscle tone and bulk Neurologic: Oriented to person, place, date and situation. Antimicrobial Medications Antibiotics Start Date Stop Date Comments: Vancomycin 12/05 discontinue Cefepime 12/05 12/07 Metronidazole 12/05 discontinue Microbiology Data: Abscess fluid 12/05: gram stain with many gram positive cocci R to PCN CULTURE RESULT (no units) Date Value 12/05/2017 Staphylococcus aureus (A) 12/05/2017 Staphylococcus aureus (A) 12/05/2017 Staphylococcus aureus (A) 12/05/2017 Staphylococcus aureus (A) 12/03/2017 No growth to date. New Imaging Since Last ID Note: 12/07 CXR: Right upper extremity PICC tip in the region of the cavoatrial junction. Clear l ungs. Laboratory Data: Recent Labs 12/05/17 0523 12/07/17 0622 12/08/17 0513 WBC 10.28 13.50* 10.02 RBC 3.58* 3.38* 3.16* HB 11.4* 10.7* 9.9* HCT 33.8* 32.0* 29.4* PLT 339 321 296 Recent Labs 12/03/17 2330 12/05/17 0524 12/05/17 2026 12/05/17 2227 12/07/17 1114 NA 138 139 -- -- 137 K 4.1 4.1 -- -- 5.0 CL 106 106 -- -- 104 BICARB 23 24 -- -- 22 BUN 12 12 -- -- 17 CR 0.63 0.74 -- -- 0.67 GLU 106* 93 68 130* 92 CA 8.5* 8.4* -- -- 8.4* Lab Results Lab Test Name Results Date/Time AST 12 03/03/08 ALT 14 03/03/08 AP 97 03/03/08 TBILI 0.7 03/03/08 TP 7.4 03/03/08 ALB 2.5 12/07/17 ALB 3.1 03/03/08 Lab Results Lab Test Name Results Date/Time APTT 33.1 12/05/17 APTT 31.3 03/03/08 FIBRINOGEN 581 12/05/17 FIBRINOGEN 432 10/18/07 Lab Results Lab Test Name Value Date ESR 61 12/03/2017 ESR 62 03/03/2008 Lab Results Lab Test Name Value Date CRP 96.0 12/03/2017 Medications: Current Facility-Administered Medications Medication Dose Route Frequency acetaminophen (TYLENOL) tablet 325-650 mg 325-650 mg oral Q6H PRN atorvastatin (LIPITOR) tablet 80 mg 80 mg oral HS bisacodyl (DULCOLAX) suppository 10 mg 10 mg rectal DAILY PRN enoxaparin (LOVENOX) injection 40 mg 40 mg subcutaneous QPM hydrocortisone 1 % cream topical BID influenza high-dose vaccine (FLUZONE HIGH-DOSE) (PF) IM injection (age [address]) 0.5 mL 0.5 mL intramuscular Day of Discharge lidocaine (LIDODERM) 5 % patch 1 patch 1 patch transdermal Q24H lisinopril (PRINIVIL) tablet 5 mg 5 mg oral DAILY magnesium citrate liquid 296 mL 296 mL oral DAILY PRN metoprolol tartrate (LOPRESSOR) tablet 50 mg 50 mg oral DAILY metroNIDAZOLE (FLAGYL) tablet 500 mg 500 mg oral TID mineral oil (FLEET MINERAL OIL) rectal enema 133 mL 133 mL rectal ONCE NaCl 0.9%-KCl 20 mEq/L IV infusion intravenous CONTINUOUS nicotine (NICOTROL) 14 mg/24 hr 1 patch 1 patch transdermal DAILY nicotine polacrilex (COMMIT) lozenge 2 mg 2 mg oral Q1H PRN ondansetron (ZOFRAN) injection 4 mg 4 mg intravenous Q8H PRN Or ondansetron ODT (ZOFRAN ODT) tablet 8 mg 8 mg oral Q8H PRN polyethylene glycol (MIRALAX) packet 17 g 17 g oral BID polyethylene glycol (MIRALAX) packet 34 g 34 g oral TID PRN prochlorperazine (COMPAZINE) tablet 5 mg 5 mg oral Q6H PRN Or prochlorperazine (COMPAZINE) injection 2.5 mg 2.5 mg intravenous Q6H PRN promethazine (PHENERGAN) 6.25 mg in NaCl 0.9 % (NS) IV 6.25 mg intravenous Q6H PRN promethazine (PHENERGAN) tablet 12.5 mg 12.5 mg oral Q6H PRN scopolamine (TRANSDERM-SCOP) 1 mg over 3 days 1 patch 1 patch transdermal Q72H senna-docusate (SENOKOT S) 8.6-50 mg 4 tablet 4 tablet oral BID spironolactone (ALDACTONE) tablet 25 mg 25 mg oral DAILY vancomycin (VANCOCIN) IV 750 mg 750 mg intravenous Q12H Assessment and Plan: 67 y/o F with CAD s/p CO, HTN, SAH s/p right pterional craniotomy for clipping (09/2007) c/b hydrocephalus treated by a right frontal VPS (03/2008) and synthetic cranioplasty for eroded hardwarein 10/2015. 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 All hardware has been removed, with no immediate plans to replace shunt or cranioplasty. However, there is a high likelihood that bone in direct c ontact with the cranioplasty was involved/infected; as such, will need to treat this as cran ial osteomyelitis with six weeks of IV antibiotics. Tissue culture from the OR (12/05) show ed growth of staph aureus resistant to penicillin. Given these susceptibilities, vancomycin and metronidazole can be discontinued; patient can be started on IV cefazolin 2g q8h. We rec ommend continuing IV cefazolin as 6 weeks as an outpatient; however, if this is not feasible , the patient can take IV ceftriaxone 2g once daily instead. Plan for a stop date of 01/16 ( 6 weeks from date of surgery). Recommendations: 1. Discontinue IV Vancomycin and metronidazole 2. Start IV Cefazolin 2g q8h. Plan to treat for 6 weeks. 3. If IV Cefazolin is not an option, patient can take IV ceftriaxone 2g once daily. 4. Plan for a stop date of 01/16 (6 weeks from date of surgery). Recommendations were communicated directly to the primary team. This patient was staffed [facility] Dr. Mariscal, who agrees with the above assessment and plan unless otherwise documented. Maite Stevens M4 Pager [phone] signed by Xavier Mariscal MD at 12/08/2017 6:07 PM PDT Associated attestation - Xavier Mariscal MD - 12/08/2017 6:07 PM PDTID Attending Attes sophieion Patient discussed on rounds with Ms. Stevens who is a 4th year medical student on the consult team. I agree with the assessment and recommendations outlined in her note from today. If cefazolin is not an option in the outpatient setting, ok to use ceftriaxone 2 grams IV daily in its place. Xavier Mariscal MD ID Attending Tika Mejia MD - 12/07/2017 5:47 PM PDT INPATIENT INFECTIOUS DISEASE PROGRESS NOTE ID TEAM: A Patient: Cielo Bell Author: Tika Mejia MD Date of Admission: 12/03/2017 Hospital Day: 4 Subjective: Patient reports that she is feeling "overwhelmed" this morning and is "tired of being sick." However, she denies headache or pain at incision site. Denies vision changes, neck pain. Denies nausea, vomiting. Denies fevers, chills. Physical Exam: No documented fevers Last Vitals: BP 132/68 | Pulse 80 | Temp 36.5 C (97.7 F) | RR 16 | Ht 1.499 m (4' 11") | Wt 49.4 kg (109 lb) | SpO2 90% | BMI 22.02 kg/(m^2) 24 Hour Vital Min/Max: Systolic (24hrs), Av , Min:111 , Max:162 Diastolic (24hrs), Av, Min:59, Max:121 Pulse Min: 80 Max: 92 Temp Min: 36.5 C (97.7 F) Max: 37.4 C (99.3 F) Resp Min: 16 Max: 18 SpO2 Min: 83 % Max: 94 % Intake/Output Summary (Last 24 hours) at 12/07/17 1747 Last data filed at 12/07/17 1556 Gross per 24 hour Intake 540.5 ml Output 0 ml Net 540.5 ml General: NAD, comfortable HEENT: right-sided cranial incision with genoveva in place. No dehiscence, no surrounding er ythema, no purulence, dried blood present throughout. Respiratory: Normal respiratory effort; clear to auscultation bilaterally; no wheezes, no c rackles. Cardiovascular: regular rate and rhythm, no murmurs GI: Soft,nontender, non-distended; normal bowel sounds. Extremities: No edema Skin: no rashes Lines: left PIV Antimicrobial Medications Antibiotics Start Date Stop Date Comments: Vancomycin 12/05 C Cefepime 12/05 C Metronidazole 12/05 C Microbiology Data: Abscess fluid 12/05: gram stain with many gram positive cocci Laboratory Data: Recent Labs 12/03/17 2330 12/05/17 0523 12/07/17 0622 WBC 12.22* 10.28 13.50* RBC 3.72* 3.58* 3.38* HB 11.7* 11.4* 10.7* HCT 34.6* 33.8* 32.0* PLT 313 339 321 Recent Labs 12/03/17 2330 12/05/17 0524 12/05/17202512/05/17 2227 NA 138 139 -- -- K 4.1 4.1 -- -- CL 106 106 -- -- BICARB 23 24 -- -- BUN 12 12 -- -- CR 0.63 0.74 -- -- GLU 106* 93 68 130* CA 8.5* 8.4* -- -- Medications: Current Facility-Administered Medications Medication Dose Route Frequency acetaminophen (TYLENOL) tablet 325-650 mg 325-650 mg oral Q6H PRN atorvastatin (LIPITOR) tablet 80 mg 80 mg oral HS bisacodyl (DULCOLAX) suppository 10 mg 10 mg rectal DAILY PRN ceFEPIme (MAXIPIME) injection 2 g 2 g intravenous Q8H enoxaparin (LOVENOX) injection 40 mg 40 mg subcutaneous QPM hydrocortisone 1 % cream topical BID influenza high-dose vaccine (FLUZONE HIGH-DOSE) (PF) IM injection (age [address]) 0.5 mL 0.5 mL intramuscular Day of Discharge lidocaine (LIDODERM) 5 % patch 1 patch 1 patch transdermal Q24H lisinopril (PRINIVIL) tablet 5 mg 5 mg oral DAILY metoprolol tartrate (LOPRESSOR) tablet 50 mg 50 mg oral DAILY metroNIDAZOLE (FLAGYL) IV 500 mg 500 mg intravenous Q8H NaCl 0.9%-KCl 20 mEq/L IV infusion intravenous CONTINUOUS nicotine (NICOTROL) 14 mg/24 hr 1 patch 1 patch transdermal DAILY nicotine polacrilex (COMMIT) lozenge 2 mg 2 mg oral Q1H PRN ondansetron (ZOFRAN) injection 4 mg 4 mg intravenous Q8H PRN Or ondansetron ODT (ZOFRAN ODT) tablet 8 mg 8 mg oral Q8H PRN polyethylene glycol (MIRALAX) packet 34 g 34 g oral TID PRN prochlorperazine (COMPAZINE) tablet 5 mg 5 mg oral Q6H PRN Or prochlorperazine (COMPAZINE) injection 2.5 mg 2.5 mg intravenous Q6H PRN senna-docusate (SENOKOT S) 8.6-50 mg 1 tablet 1 tablet oral BID spironolactone (ALDACTONE) tablet 25 mg 25 mg oral DAILY [START ON 12/08/2017] vancomycin (VANCOCIN) IV 750 mg 750 mg intravenous Q12H Assessment and Plan: 67 y/o F with CAD s/p CO, HTN, SAH s/p right pterional craniotomy for clipping (09/2007) c/b hydrocephalus treated by a right frontal VPS (03/2008) and synthetic cranioplasty for eroded hardware in 10/2015. 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 All hardware has been removed, with no immediate plans to replace shunt or cranioplasty. However, there is a high likelihood that bone in direct co ntact with the cranioplasty was involved/infected; as such, will need to treat this as crani al osteomyelitis with six weeks of IV antibiotics. Given that gram stain is growing GPCs, ca n discontinue cefepime today. Continue vancomycin and metronidazole pending further culture data. Will finalize recommendations when final cultures and susceptibilities are available. Recommendations: 1. Continue vancomycin, goal trough 13-17 2. Continue metronidazole 500 mg TID (please change to po - oral bioavailability is equival ent to IV) 3. Discontinue cefepime (no evidence of gram negative organisms on culture) 4. Anticipate 6 weeks of therapy from date of surgery (through 01/16) 5. Final recommendations to follow when cultures finalized Recommendations were communicated directly to the primary team. This patient was staffed [facility] Dr. Mariscal, who agrees with the above assessment and plan unless otherwise documented. Tika Mejia MD Infectious Disease Fellow Pager: [phone] signed by Xavier Mariscal MD at 12/07/2017 6:33 PM PDT Associated attestation - Xavier Mariscal MD - 12/07/2017 6:33 PM PDTID Attending Attes tation Patient discussed on rounds with Dr. Mejia. I agree with the assessment and recommend ations outlined in her note from today. Xavier Mariscal MD ID Attending Edmund Herr, PharmD - 12/07/2017 12:49 PM PDT Pharmacist Managed Vancomycin: Monitoring Note Indication: Brain abscess with suspected osteomyelitis. Goal trough: 15-20 Level: 11.9 mg/L was drawn appropriately, approximately 11.25 hours after the last dose. CrCl cannot be calculated (Unknown ideal weight.). Urine output: unmeasured urined output. Renal function: stable Plan: Increase from 500 mg IV every 12 hours to 750 mg IV every 12 hours. Extrapolated trough of 500 mg BID is 11.3 mg/L. Given the concern for osteomyelitis, this increases the desired tr ough to 15-20 mg/L. Therefore, will increase dose as above. Repeat level: Pharmacist will order another trough level prior to fourth dose. Please page clinical pharmacist [phone]) or call central inpatient pharmacy ([phone]) with qu estions. Actual body weight: Weight: 49.4 kg (109 lb) (12/03/17 2934) Labs: CREATININE PLASMA (LAB) (mg/dL) Date Value 12/05/2017 0.74 12/03/2017 0.63 BUN, PLASMA (LAB) (mg/dL) Date Value 12/05/2017 12 12/03/2017 12 WHITE CELL COUNT (K/cu mm) Date Value 12/07/2017 13.50 (H) 12/05/2017 10.28 12/03/2017 12.22 (H) VANCOMYCIN, TROUGH (ug/mL) Date/Time Value 12/07/2017 1114 11.9 Pertinent cultures/sensitivities: Tissue/Abscess from Head: Staphylococcus aureus. Thank you for the consult, Edmund Herr PharmD Clinical Pharmacist Pager: [phone] Marianna Tirado M D - 12/06/2017 4:03 PM [facility] attending attestation DOS - 12/06/17 A medical student assisted in documenting this service. I personally interviewed the patient, performed the pertinent parts of the physical examina tion and personally formulated the plan with the MS Maite Stevens. I agree with the medical students documentation and have documented any additions or except ions. Please refer to the excellent H&P by Maite Stevens. Noted OSH swab cx - MSSA Current [facility] OR cx - GPC. 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 We will follow Thank you for the consult Marianna Chandler MD INFECTIOUS DISEASES AT [facility] [address] [place] [address] Mailcode: [id number] [place] [phone] Fax [phone] signed by Marianna Chandler MD at 12/09/2017 10:48 AM PDTEdmund Lyons PharmD - 12/06/2017 9:48 AM PDT Pharmacist Managed Vancomycin: Initial Note Indication: Right-sided wound dehiscence and infection with epidural abscess Goal trough: 10-15 mg/L (pending ID recommendations) CrCl: ~ 50 ml/min Urine output: unmeasured urine output. Renal function: stable Assessment/Plan: - Start vancomycin 500 mg IV every 12 hours. Of note patient received 1000 mg IV in the OR 12/05 at 2135 - Pharmacist will order trough level prior to fourth dose (1030 12/07). Please page clinical pharmacist [phone]) or call central inpatient pharmacy ([phone]) with qu estions. Actual body weight: Weight: 49.4 kg (109 lb) (12/03/17 1286) Labs: CREATININE PLASMA (LAB) (mg/dL) Date Value 12/05/2017 0.74 12/03/2017 0.63 BUN, PLASMA (LAB) (mg/dL) Date Value 12/05/2017 12 12/03/2017 12 WHITE CELL COUNT (K/cu mm) Date Value 12/05/2017 10.28 12/03/2017 12.22 (H) Pertinent cultures/sensitivities: Tissue and abscess from head: Few GPCs Catheter Tip from head: NGTD Thank you for the consult, Edmund Herr PharmD Clinical Pharmacist Pager: [phone] oMaite vasquez - 9:27 AM PDTAssociated Order(s): IP CONSULT TO INFECTIOUS DISEASES INPATIENT INFECTIOUS DISEASE CONSULT NOTE Infectious Disease Team A Patient: Cielo Bell Room/Bed: 09/03 Requesting Provider: ALEXANDRO Attending Physician: Dr. Marianna Chandler PCP: No Pcp Per PATIENT Author: Maite Stevens Date of Admission: 12/03/2017 Hospital Day: 3 Date of Service: 12/06/2017 Chief Complaint/Reason for Consult: Chief complaint: infection of cranial hardware ID consult s/p explant with washout for antibiotic choice and duration HPI: Cielo Bell is a 67 y.o. female with CAD s/p CO, HTN, SAH s/p right pterional craniotomy for clipping (09/2007) c/b hydrocephalus treated by a right frontal VPS (03/2008). She presented again with erosion of a cranial plating screw through her scalp and associated cranial defect, and was taken for a synthetic cranioplasty in 10/2015. The patient presents today for infection of cranioplasty. Shet reports that three days prior to this admission, s he developed a sudden and severe headache without any inciting event. Later in the day when she was washing her hair, she noticed drainage of pustulant fluid. She denied any n/v/, loss of consciousness or changes in vision at this time. She presented to [facility] where a head CT showed epidural air and fluid collection consistent with abscess. Wound was swabbed in the ED and showed growth of MSSA (12/05). She was then transferred to [facility] for neurosurgi eagle management. Explant of cranioplasty with wound washout was performed on 12/05. Yellow adherent epidural phelgmon without significant involvement of the subgaleal space or shunt was observed in th e OR. Of note, the distal catheter fracture on explant so a portion of the tunneled shunt re isaac in the patient's chest. 2L of antibiotic containing irrigation was used. ID was consu lted for antibiotic choice and duration. The patient was started on IV Vanc and Cefepime 2g q8h on 12/06. OR cultures pending. ROS: A review of systems was performed and was negative except as outlined in the HPI PMH: Past Medical History: Diagnosis Date Abnormal LFTs (liver function tests) Benign neoplasm of major salivary glands CAD in [place] artery s/p NSTEMI 12/27/2014; status post stent placement in the mid LAD Chronic pain Continuous tobacco abuse COPD on oxygen at night CVA (cerebral vascular accident) ([facility]) 2007 Essential hypertension GERD (gastroesophageal reflux disease) Goiter MRSA (methicillin resistant staph aureus) culture positive post cariotomy for SAH Otitis media recent abx preadmit Subarachnoid hemorrhage due to ruptured aneurysm ([facility]) 2007 Tobacco dependence Past Surgical History: Procedure Laterality Date BLADDER SUSPENSION cholecystecomy CORONARY STENT PLACEMENT 12/28/2014 status post stent placement in the mid LAD HYSTERECTOMY LUMPECTOMY OF LEFT BREAST 1979 PARTIAL THYROIDECTOMY Right REPAIR OF ANEURYSM BY CLIPPING TYMPANOPLASTY Right 1987 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 120 tablet 0 aspirin EC 81 mg oral tablet,delayed release (DR/EC) Take 1 tablet by mouth once daily. Do not restart aspirin until 2 weeks after surgery atorvastatin 80 mg oral tablet Take 80 mg by mouth once daily at bedtime. clopidogrel 75 mg oral tablet Take 1 tablet by mouth once daily. Do not restart plavix until 2 weeks after surgery lisinopril 5 mg oral tablet Take 5 mg by mouth once daily. metoprolol succinate 25 mg oral tablet extended release 24 hr Take 25 mg by mouth once daily. metoprolol succinate 50 mg oral tablet extended release 24 hr Take 50 mg by mouth once daily. nicotine 21 mg/24 hr transdermal patch 24 hour Apply 1 patch to skin once daily. 31 pat ch 0 ondansetron (ZOFRAN, HYDROCHLORIDE,) 4 mg oral tablet Take 1 tablet by mouth every t welve hours as needed. 30 tablet 0 oxyCODONE, immediate release, 5 mg oral tablet Take 1-3 tablets by mouth every three ho urs as needed for moderate pain. 50 tablet 0 pravastatin 20 mg oral tablet Take 20 mg by mouth once daily at bedtime. senna-docusate 8.6-50 mg oral tablet Take 2 tablets by mouth twice daily as needed (ileana e twice daily as long as you are taking narcotic pain medication). 60 tablet 3 spironolactone 25 mg oral tablet Take 25 mg by mouth once daily. Current Medications: Current Facility-Administered Medications Medication Dose Route Frequency acetaminophen (TYLENOL) tablet 325-650 mg 325-650 mg oral Q6H PRN atorvastatin (LIPITOR) tablet 80 mg 80 mg oral HS bisacodyl (DULCOLAX) suppository 10 mg 10 mg rectal DAILY PRN ceFEPIme (MAXIPIME) injection 2 g 2 g intravenous Q8H hydrocortisone 1 % cream topical BID influenza high-dose vaccine (FLUZONE HIGH-DOSE) (PF) IM injection (age [address]) 0.5 mL 0.5 mL intramuscular Day of Discharge lidocaine (LIDODERM) 5 % patch 1 patch 1 patch transdermal Q24H lisinopril (PRINIVIL) tablet 5 mg 5 mg oral DAILY metoprolol tartrate (LOPRESSOR) tablet 50 mg 50 mg oral DAILY NaCl 0.9%-KCl 20 mEq/L IV infusion intravenous CONTINUOUS nicotine (NICOTROL) 14 mg/24 hr 1 patch 1 patch transdermal DAILY nicotine polacrilex (COMMIT) lozenge 2 mg 2 mg oral Q1H PRN ondansetron (ZOFRAN) injection 4 mg 4 mg intravenous Q8H PRN Or ondansetron ODT (ZOFRAN ODT) tablet 8 mg 8 mg oral Q8H PRN polyethylene glycol (MIRALAX) packet 34 g 34 g oral TID PRN senna-docusate (SENOKOT S) 8.6-50 mg 1 tablet 1 tablet oral BID spironolactone (ALDACTONE) tablet 25 mg 25 mg oral DAILY vancomycin (VANCOCIN) IV 1,000 mg 1,000 mg intravenous Q12H Allergies Allergies Allergen Reactions [place] Tar Hives Betadine [Povidone-Iodine (With Soap)] Unknown Cipro [Ciprofloxacin] Nausea and Vomiting Codeine Hcl Nausea and Vomiting Sulfa (Sulfonamide Antibiotics) Erythema Social History Social History Substance Use Topics Smoking status: Current Every Day Smoker Packs/day: 1.00 Years: 47.00 Types: Cigarettes Smokeless tobacco: Never Used Comment: quit for 1 year Alcohol use No Social History Narrative Lives alone. February 2012. Family History: Family History Problem Relation Age of Onset Cancer Brother 72 lung Cancer Father brain Additional Family History Mother dementia Physical Exam: BP 107/53 | Pulse 88 | Temp 36.4 C (97.5 F) | RR 16 | Ht 1.499 m (4' 11") | Wt 49.4 kg (109 lb) | SpO2 93% | BMI 22.02 kg/(m^2) Systolic (24hrs), Av , Min:107 , Max:165 Diastolic (24hrs), Av, Min:53, Max:83 Pulse Av.9 Min: 73 Max: 95 Temp Av.6 C (97.8 F) Min: 36.2 C (97.2 F) Max: 36.7 C (98.1 F) Resp Av.6 Min: 14 Max: 25 SpO2 Av % Min: 88 % Max: 100 % General Appearance: comfortable, NAD, resting in bed HEENT: Right sided cranial dressing in place. No purulent or foul smelling discharge. EOMI, no conjunctival petechiae, no scleral icterus; Clear mucus membranes, good dentition. Neck: supple, no neck masses noted Respiratory: good respiratory effort; clear to auscultation bilaterally, no wheezes, crackl es Cardiovascular: regular rate and rhythm with no murmurs Gastrointestinal: +BS, soft, non tender, non distended Skin: Warm, well perfused, no ecchymoses, no rashes Extremities: no dependent edema, normal muscle tone and bulk Neurologic: Oriented to person, place, date and situation. Data: Recent Labs 12/03/17232912/05/17522 WBC 12.22* 10.28 RBC 3.72* 3.58* HB 11.7* 11.4* HCT 34.6* 33.8* PLT 313 339 Recent Labs 12/03/17232912/05/17 0524 12/05/17202512/05/17 2227 NA 138 139 -- -- K 4.1 4.1 -- -- CL 106 106 -- -- BICARB 23 24 -- -- BUN 12 12 -- -- CR 0.63 0.74 -- -- GLU 106* 93 68 130* CA 8.5* 8.4* -- -- No results for input(s): AST, ALT, AP, TBILI, TP, ALB in the last 4320 hours. Lab Results Lab Test Name Results Date/Time APTT 33.1 12/05/17 APTT 31.3 03/03/08 FIBRINOGEN 581 12/05/17 FIBRINOGEN 432 10/18/07 Lab Results Lab Test Name Value Date ESR 61 12/03/2017 ESR 62 03/03/2008 Lab Results Lab Test Name Value Date CRP 96.0 12/03/2017 Microbiology Data: CULTURE RESULT (no units) Date Value 05/13/2008 CSF Culture Source...............: Cerebrospinal Fluid RLB Gram Stain...........: Gram smear performed at [facility]. Culture: Final Report: No growth after 3 days. Final Report 04/29/2008 CSF Culture Source...............: Cerebrospinal Fluid RLB Gram Stain...........: Gram smear performed at [facility]. Culture: Rare Methicillin resistant Staphylococcus aureus Final ID MRSA Cefazolin R Clindamycin S Erythromycin R Oxacillin R Penicillin R Tetracycline S Trimeth/Sulfa S Vancomycin S Final Report 03/07/2008 CSF Culture Source...............: Cerebrospinal Fluid RLB Gram Stain...........: Gram smear performed at [facility]. Culture: Final Report: No growth after 3 days. Final Report 03/03/2008 CSF Culture Source...............: Cerebrospinal Fluid RLB Gram Stain...........: Gram smear performed at [facility]. Culture: Final Report: No growth after 3 days. Final Report 03/03/2008 Wound Culture Source...............: Skin Abscess RLB Gram Stain...........: Rare Squamous epithelial cells Rare PMN's Rare Gram positive cocci Culture: 1+ Methicillin resistant Staphylococcus aureus Final ID MRSA Cefazolin R Clindamycin S Erythromycin R Oxacillin R Penicillin R Tetracycline S Trimeth/Sulfa S Vancomycin S Final Report Resulted: 03/05/08 [facility] ([facility]) [facility] [place] [address] [place] [id number] 03/03/2008 Urine Culture Source...............: Clean catch Culture: Final Report: No growth (< 1,000 col/ml) after 24 hours Final Report Resulted: 03/05/08 [facility] ([facility]) [facility] [place] [address] [place] [address] 10/28/2007 CSF Culture Source...............: Cerebrospinal Fluid RLB Gram Stain...........: Gram smear performed at [facility]. Culture: Final Report: No growth after 3 days. Final Report CULTURE RESULT (no units) Date Value 12/03/2017 No growth to date. 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 Fluid and gas collection in the cranioplasty be d is unchanged. Problem List: Active Problems: Draining postoperative wound Assessment and Plan: Cielo Bell is a 67 y.o. 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 She presented yesterday for infected cranial hard and underwent explant of cranioplasty with washout on 12/05. A portion of the hardware snapped and remains in her chest but all hardware was removed from her cranium. She was started on IV Vancomycin and cefepime 2g q8 hours. We recommend adding flagyl 500 mg TI D for anaerobic coverage in addition to her current antibiotic regimen. While initial cultur es from wound swab in [place] show MSSA, an infection of this duration is likely polymicro bial; we will wait for tissue cultures from the OR before making changes to the patient's cu rrent antibiotics. We recommend treating patient for suspected osteomyelitis; treatment dura tion is likely 6 weeks. We will narrow antibiotic regimen once additional culture data becom es available. Recommendations: 1. Add Flagyl 500 mg q8h for anaerobic coverage 2. Continue Cefepime 2g q8h and IV Vancomycin. Will narrow antibiotic regimen once addition al culture data is available. Likely treatment duration 6 weeks. 3. We will follow for culture results. Recommendations were communicated directly to the primary team. This patient was staffed [facility] Dr. Chandler, who agrees with the above assessment and plan unless otherwise documented. Thank you for the consult. We will follow along with you. Maite Stevens, 12/06/17 , 9:29 AM M4 Pager [phone] signed by Marianna Chandler MD at 12/09/2017 10:48 AM PDT Associated attestation - Marianna Chandler MD - 12/09/2017 10:48 AM PDTA medical student ass isted in documenting this service. I personally interviewed the patient, performed the pertinent parts of the physical examina tion and personally formulated the plan with the MS Maite Stevens. I agree with the Medical students documentation and have documented any additions or except ions. Please refer to the excellent H&P by Maite Stevens. Noted OSH swab cx - MSSA Current [facility] OR cx - [facility]. 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 We will follow Thank you for the consult Marianna Chandler MD INFECTIOUS DISEASES AT [facility] 3RD FLOOR [facility] [address] [facility] Mailcode: [id number] [place] [id number] Fax - [phone] documented in this encounter Miscellaneous Notes Handoff - Jemima Holloway RN - 12/09/2017 10:40 AM PDTNursing Handoff Patient Daily Goal: Bowel Movement and progress to discharge (12/09/17 4893) Patient Specific Preferences: wants coffee SAIDA if not having surgery (12/04/17 1898) [facility] IP NURSE HANDOFF: [facility] events: Cielo Bell is a 67 y.o. fem eugenie here for removal of infected crainioplasty and washout. 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 Patient was admitted [facility] on evening of 12/05. SAFETY Patient/Family Target: Cielo will use call light for assistance, remain free from fall. Progress to Target: Improving As evidenced by: Cielo has been calling appropriately to get up to the BR;no fall or injury this shift. U p as a close SBA. She used walker to ambulate to shower chair in the afternoon. Must have helmet on at all time when out of bed. Progress to Target: Improving RESTORATIVE MEASURES/SELF-MANAGEMENT Patient/Family Target: Cielo will have a bowel movement. Progress to Target: Improving As evidenced by: Cielo has not had a bowel movement in 5 days despite aggressive bowel regimen of supposi tory and enema on 12/08 (scant smear of BM on 12/08 only). Magnesium citrate taken at 1200. No BM. Abdominal xray ordered prior to discharge. HEALTH PROMOTION Patient/Family Target: iCelo will promote deep breathing. Progress to Target: Improving As evidenced by: Cielo occasionally used incentive spirometer during shift. Cielo has a loose cough and has continued to cough frequently during this shift. NURSING ASSESSMENT & RECOMMENDATIONS FORWARD Nursing Assessment of Patient Stability Risk: Moderately stable Recommendations Forward: - Helmet whenever OOB - Keep pressure off incision site - bed alarm, reinforce call light use, bone flap out. - Neuro checks + watch for shunt failure - Pt noted to have stage 1 pressure sore on her coccyx from ambulance ride; unchanged; foam dressing off. - Crani site cleaned 12/07; dried drainage removed. No new drainage noted. - Had ENT consult about possible need for followup flap - promote incentive spirometer use, cough and deep breathing Barriers to discharge: Bowel movement andoff - Brien Garcia RN - 12/09/2017 7:03 AM PDTNursing Handoff Patient Daily Goal: Nausea control and to have BM (12/08/17 0853) Patient Specific Preferences: wants coffee SAIDA if not having surgery (12/04/17 0832) [facility] IP NURSE HANDOFF: [facility] hospital course events: Cielo Bell is a 67 y.o. fem eugenie here for removal of infected crainioplasty and washout. 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 Patient was admitted [facility] on evening of 12/05. SAFETY Patient/Family Target: Cielo will use call light for assistance when she would like to get OOB Progress to Target: No Change As evidenced by: Cielo called appropriatly during the night for help with care and when she needed to get OOB. Got OOB once during the night to use the bathroom ( extreme urgency) - she had genera lized weakness and slightly unsteady on feet. COMFORT/ANXIETY/BEHAVIOR Patient/Family Target: Cielo will remain comfortable- control N/V. Progress to Target: Deteriorating As evidenced by: Cielo had a scant emesis @0100 and had been complaining of intermittent nausea. IV nathaly zine given. She would like to try to continue to eat during the day. Progress to Target: Improving HEALTH PROMOTION Patient/Family Target: Cielo will have BM soon. Progress to Target: No Change As evidenced by: Cielo has not had BM over 5days ago, enema given on evening shift with scant smears x2. Pt stated she was willings to try more interventions around her morning med time. NURSING ASSESSMENT & RECOMMENDATIONS FORWARD Nursing Assessment of Patient Stability Risk: Moderately stable Recommendations Forward: -Helmet whenever OOB -Keep pressure off incision site -bed alarm, reinforce call light use, bone flap out. -Neuro checks + watch for shunt failure -pt noted to have stage 1 pressure sore on her coccyx. Foam dressing 2 bedside for placemen t. She requested having off for a couple hrs. -Picc in her right arm placed this am - laila 12/09 in early AM -Monitor crani incision site, site cleaned@ 0400 in AM. -Encourage pt to eat, control nausea/vomiting - prn antiemetics available to help -denies pain Barriers to discharge: Pending clinical course andoff - Fr clari White RN - 12/08/2017 4:53 PM PDTNursing Handoff Patient Daily Goal: Nausea control and to have BM (12/08/17 0853) Patient Specific Preferences: wants coffee SAIDA if not having surgery (12/04/17 0832) [facility] IP NURSE HANDOFF: [facility] hospital course events: Cielo Bell is a 67 y.o. fem eugenie here for removal of infected crainioplasty and washout. 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 Patient was [facility] on evening of 12/05. SAFETY Patient/Family Target: Cielo will use call light for assistance, remain free from fall. Progress to Target: Improving As evidenced by: Cielo has been using call light, no fall or injury this shift. HEALTH PROMOTION Patient/Family Target: Cielo will have BM this shift. Progress to Target: No Change As evidenced by: Cielo only had scan amt. Of stool after enema given this shift but no nausea/vomiting an d able to eat 50% of her dinner. NURSING ASSESSMENT & RECOMMENDATIONS FORWARD Nursing Assessment of Patient Stability Risk: Moderately stable Recommendations Forward: -Helmet whenever OOB -Keep pressure off incision site -bed alarm, reinforce call light use, bone flap out. -Neuro checks + watch for shunt failure -pt noted to have stage 1 pressure sore on her coccyx, Foam dressing applied and needs to be educated and reminded about staying on her side to prevent further skin breakdown. - promote incentive spirometer use, cough and deep breathing Barriers to discharge: Barriers to discharge: Barriers to discharge: Plastic Surgery Consul t andoff - Emeterio Holloway RN - 12/08/2017 3:44 PM PDTNursing Handoff Patient Daily Goal: Nausea control and to have BM (12/08/17 0853) Patient Specific Preferences: wants coffee SAIDA if not having surgery (12/04/17 0832) [facility] IP NURSE HANDOFF: [facility] hospital course events: Cielo Bell is a 67 y.o. fem eugenie here for removal of infected crainioplasty and washout. 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 Patient was [facility] on evening of 12/05. SAFETY Patient/Family Target: Cielo will use call light for assistance, remain free from fall. Progress to Target: Improving As evidenced by: Cielo has been calling appropriately to get up to the BR;no fall or injury this shift. U p as a close SBA. Must have helmet on at all time when out of bed. COMFORT/ANXIETY/BEHAVIOR Patient/Family Target: Cielo will be able to rest comfortably this shift. Progress to Target: Improving As evidenced by: Cielo denies pain in incision site. She reports that coccyx is still sore from long amb ulance ride, but was able to sit supine during shift. No change noted in small blanchable a faviola of redness on coccyx. RESTORATIVE MEASURES/SELF-MANAGEMENT Patient/Family Target: Cielo will not have further skin breakdown this shift. Progress to Target: Improving As evidenced by: Foam dressing applied to the coccyx and has been laying on her left side; no new skin br eakdown noted. HEALTH PROMOTION Patient/Family Target: Cielo will promote deep breathing. Progress to Target: Improving As evidenced by: Cielo was instructed how to use her incentive spirometer and was able to demonstrate pro per use. She was using throughout shift. Cielo has a loose cough and has been coughing more frequently during this shift. NURSING ASSESSMENT & RECOMMENDATIONS FORWARD Nursing Assessment of Patient Stability Risk: Moderately stable Recommendations Forward: -Helmet whenever OOB -Keep pressure off incision site -bed alarm, reinforce call light use, bone flap out. -Neuro checks + watch for shunt failure -pt noted to have stage 1 pressure sore on her coccyx, Foam dressing applied and needs to be educated and reminded about staying on her side to prevent further skin breakdown. -need picc- picc RN paged but no response this shift. Pt has new iv on her left arm for ant ibiotic therapy. -Monitor crani incision site, had small amt. Of SS drainage earlier, telfa and crani cap ch anged. - promote incentive spirometer use, cough and deep breathing Barriers to discharge: Barriers to discharge: Plastic Surgery Consult andoff - Brien Garcia RN - 12/08/2017 4:26 AM PDTNursing Handoff Patient Daily Goal: TO get Helmet so I can get out of this bed. (12/06/17 0830) Patient Specific Preferences: wants coffee SAIDA if not having surgery (12/04/17 0832) [facility] IP NURSE HANDOFF: [facility] hospital course events: Cielo Bell is a 67 y.o. fem eugenie here for removal of infected crainioplasty and washout. 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 Patient was [facility] on evening of 12/05. SAFETY Patient/Family Target: Cielo will use call light for assistance when she would like to get OOB Progress to Target: No Change As evidenced by: Cielo set off the bed alarm once during the night when she needed to use the bathroom. R einforced importance of calling d/t helmet needing to be on when OOB and fall prevention. Vo iced understanding. No further problems. COMFORT/ANXIETY/BEHAVIOR Patient/Family Target: Cielo will remain comfortable- control N/V. Progress to Target: Deteriorating As evidenced by: Cielo given PO phenergan and compazine during the night. She had one small emesis @ ~ 00 00. She is afraid to eat anything PO and states "I haven't felt like this since my aneurysm" . Guillermina offered sprite, saltines since she has not had anything PO in almost 24 hrs. Team is aware of increase nausea. Continue to monitor. RESTORATIVE MEASURES/SELF-MANAGEMENT Patient/Family Target: Cielo will get at least 4-6 hours of sleep Progress to Target: Improving As evidenced by: Cielo was finally able to sleep during the night. She Slept about 6 hrs. HEALTH PROMOTION Patient/Family Target: Cielo will have BM soon. Progress to Target: No Change As evidenced by: Cielo has not had BM over 4days ago, MiraLax given on evening shift but no result this s hift, consider giving pt suppository in the morning if no result from the MiraLax. NURSING ASSESSMENT & RECOMMENDATIONS FORWARD Nursing Assessment of Patient Stability Risk: Moderately stable Recommendations Forward: -Helmet whenever OOB -Keep pressure off incision site -bed alarm, reinforce call light use, bone flap out. -Neuro checks + watch for shunt failure -pt noted to have stage 1 pressure sore on her coccyx, Foam dressing applied and needs to be educated and reminded about staying on her side to prevent further skin breakdown. -Picc in her right arm placed this am - laila 12/08 -Monitor crani incision site, site cleaned on evening shift continue with monitoring and i nterventions. - encourage pt to eat, control nausea/vomiting and prn antiemetics available to help Barriers to discharge: Barriers to discharge: Barriers to discharge: Plastic Surgery Consul t andoff - Christopher, Fr clari RN - 12/07/2017 5:21 PM PDTNursing Handoff Patient Daily Goal: TO get Helmet so I can get out of this bed. (12/06/17 0830) Patient Specific Preferences: wants coffee SAIDA if not having surgery (12/04/17 0832) [facility] IP NURSE HANDOFF: [facility] hospital course events: Cielo Bell is a 67 y.o. fem eugenie here for removal of infected crainioplasty and washout. 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 Patient was [facility] on evening of 12/05. SAFETY Patient/Family Target: Cielo will use call light for assistance, remain free from fall. Progress to Target: Improving As evidenced by: Cielo has been calling when assistance needed,no fall or injury this shift. COMFORT/ANXIETY/BEHAVIOR Patient/Family Target: Cielo will remain comfortable- control N/V. Progress to Target: Improving As evidenced by: Cielo given po Zofran once this shift with effective result. RESTORATIVE MEASURES/SELF-MANAGEMENT Patient/Family Target: Cielo will be able to eat at least 50% of her dinner. Progress to Target: Deteriorating As evidenced by: Cielo declined po intake, had some water with Miralax but not much, iv fluid restarted p er previous order. HEALTH PROMOTION Patient/Family Target: Cielo will have BM soon. Progress to Target: No Change As evidenced by: Cielo has not had BM over 4days ago, MiraLax given but no result this shift, consider gi ving pt suppository in the morning if no result from the MiraLax. NURSING ASSESSMENT & RECOMMENDATIONS FORWARD Nursing Assessment of Patient Stability Risk: Moderately stable Recommendations Forward: -Helmet whenever OOB -Keep pressure off incision site -bed alarm, reinforce call light use, bone flap out. -Neuro checks + watch for shunt failure -pt noted to have stage 1 pressure sore on her coccyx, Foam dressing applied and needs to be educated and reminded about staying on her side to prevent further skin breakdown. -Picc in her right arm placed this am. -Monitor crani incision site, site cleaned this shift, continue with monitoring and interve ntions. - encourage pt to eat, control nausea/vomiting and prn antiemetics available to help Barriers to discharge: Barriers to discharge: Barriers to discharge: Plastic Surgery Consul t lan of Care - Hallie Vee RD - 12/07/2017 2:50 PM PDTProblem: Nutrition Interventions Intervention: Food and nutrient distribution type or amount Pt with fair to good PO intake so far during admit. Nutrition Dx: Pt with potential for inadequate protein-energy intake r/t increased needs 2/ 2 wound healing. Goal of nutrition care: To promote adequate oral food and beverage intake. Recomendations: -Cont current diet order -Encourage PO intake as quiana, especially high protein foods -Will offer oral supplements prn -Add MVI daily -Bowel regimen -Treat symptoms prn Following. Hallie Duncan RD, GEN[employer] TECH[employer]OLOGIST, [place] #[id number] Comments: Cielo Bell is a 67 y.o. female admitted for removal of infected crai nioplasty and washout. H/o cranial deformity as a result of craniotomy for SAH in 2007. PMH: CAD, HTN, GERD Diet: Regular; PO intake: 40-100% of meals BM x 1, soft Ht:59"; Wt: 49.4kg -standing (12/03); BMI: 22 Est Nutrition Needs: 1300-1500kcals (25-30kcals/kg); 50-75gm protein (1-1.5gm/kg)Electronic ally signed by Halile Duncan RD at 12/07/2017 2:53 PM PDTHandoff - Odette Garcia RN - 12/07/2017 7:49 AM PDTNursing Handoff Patient Daily Goal: TO get Helmet so I can get out of this bed. (12/06/17 0830) Patient Specific Preferences: wants coffee SAIDA if not having surgery (12/04/17 0832) [facility] IP NURSE HANDOFF: [facility] hospital course events: Cielo Bell is a 67 y.o. fem eugenie here for removal of infected crainioplasty and washout. 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 Patient was [facility] on evening of 12/05. SAFETY Patient/Family Target: Cielo will use call light for assistance, remain free from fall. Progress to Target: Improving As evidenced by: Cielo has been calling appropriately to get up to the BR;no fall or injury this shift. U p as a close SBA. Must have helmet on at all time. COMFORT/ANXIETY/BEHAVIOR Patient/Family Target: Cielo will be able to rest comfortably this shift. Progress to Target: Improving As evidenced by: Cielo has a stage 1 ulcer on her bottom. She is positioned on her left side and will onl y be supine for short periods ( eating). She cant be turned on right d/t crani cap. Cielo denies pain RESTORATIVE MEASURES/SELF-MANAGEMENT Patient/Family Target: Cielo will not have further skin breakdown this shift. Progress to Target: Improving As evidenced by: Foam dressing applied to the coccyx and has been laying on her left side; no new skin br eakdown noted. NURSING ASSESSMENT & RECOMMENDATIONS FORWARD Nursing Assessment of Patient Stability Risk: Moderately stable Recommendations Forward: -Helmet whenever OOB -Keep pressure off incision site -bed alarm, reinforce call light use, bone flap out. -Neuro checks + watch for shunt failure -pt noted to have stage 1 pressure sore on her coccyx, Foam dressing applied and needs to be educated and reminded about staying on her side to prevent further skin breakdown. -need picc- picc RN paged but no response this shift. Pt has new iv on her left arm for ant ibiotic therapy. -Monitor crani incision site, had small amt. Of SS drainage earlier, telfa and crani cap ch anged. Barriers to discharge: Barriers to discharge: Plastic Surgery Consult andoff - Fr clari White RN - 12/06/2017 4:33 PM PDTNursing Handoff Patient Daily Goal: TO get Helmet so I can get out of this bed. (12/06/17 0830) Patient Specific Preferences: wants coffee SAIDA if not having surgery (12/04/17 0832) [facility] IP NURSE HANDOFF: [facility] hospital course events: Cielo Bell is a 67 y.o. fem eugenie here for removal of infected crainioplasty and washout. 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 Patient was [facility] on evening of 12/05. SAFETY Patient/Family Target: Cielo will use call light for assistance, remain free from fall. Progress to Target: Improving As evidenced by: Cielo has been calling appropriately to get up to the BR;no fall or injury this shift. COMFORT/ANXIETY/BEHAVIOR Patient/Family Target: Cielo will be able to rest comfortably this shift. Progress to Target: Improving As evidenced by: Cielo was able to rest comfortably after position changed to her side. RESTORATIVE MEASURES/SELF-MANAGEMENT Patient/Family Target: Cielo will not have further skin breakdown this shift. Progress to Target: Improving As evidenced by: Foam dressing applied to the coccyx and has been laying on her side; no new skin breakdo wn noted. NURSING ASSESSMENT & RECOMMENDATIONS FORWARD Nursing Assessment of Patient Stability Risk: Moderately stable Recommendations Forward: -Helmet whenever OOB -Keep pressure off incision site -bed alarm, reinforce call light use, bone flap out. -Neuro checks + watch for shunt failure -pt noted to have stage 1 pressure sore on her coccyx, Foam dressing applied and needs to be educated and reminded about staying on her side to prevent further skin breakdown. -need picc- picc RN paged but no response this shift. Pt has new iv on her left arm for ant ibiotic therapy. -Monitor crani incision site, had small amt. Of SS drainage earlier, telfa and crani cap ch anged. Barriers to discharge: Barriers to discharge: Plastic Surgery Consult lowsheet Note - Koko Lindsay RN - 12/06/2017 1:04 PM PDTPt reported that she was on her back in amb ulance on a stretcher from [place]. She stated she asked attendant to put a pillow under h er bottom as it was getting sore, but nothing was done. This am she c/o sore tailbone that " really hurt". Area pink and dry and blanchable as of am assessment. Pt verbally aware of the need to stay off her tailbone/back. She knows to also stay off her left side unless she has a helmet on. Handoff - Bebeto Samuel RN - 12/06/2017 6:41 AM PDTFormatting of this note might be diffe rent from the original. Nursing Handoff Patient Daily Goal: go to OR (12/05/17 194) Patient Specific Preferences: wants coffee SAIDA if not having surgery (12/04/17 2432) [facility] IP NURSE HANDOFF: [facility] hospital course events: Per previous RN handoff: 67 y.o. female with CAD s/p CO, HTN, GERD, tobacco use, and a long neurosurgical history we ll known to our service. In brief, she presented in 09/2007 with HH4F3 SAH due to a ruptured AComm aneurysm, s/p Right pterional craniotomy for clipping. She re-presented with hydroceph alus and had a Right frontal VPS placed in 03/2008 (medium-pressure valve.) This shunt has be en tapped once, for concern of infection, and never revised. She reports today that at some point it was deemed "non-functional" but there is no clear documentation of this. She re-pre sented again with erosion of a cranial plating screw through her scalp and associated crania l defect, and was taken for a synthetic cranioplasty in 10/2015. She has been doing well sinc e then, with no headaches or focal neurologic deficits; she manages all of her own ADLs at [facility]. SAFETY Patient/Family Target: Cielo will remain NPO and have stable exam while waiting for surgery Progress to Target: Improving As evidenced by: --Add on for OR today. As of 1744, not called yet. --Asked for update from [facility], but did not hear back about going to OR today. HYGIENE/INFECTION Patient/Family Target: Cielo will be ready for surgery by having shower and LAILA Progress to Target: Improving As evidenced by: --INSPECTOR BICYCLE completed shower, LAILA and linen change at 0900 NURSING ASSESSMENT & RECOMMENDATIONS FORWARD Nursing Assessment of Patient Stability Risk: Moderately stable Recommendations Forward: -NPO 12/05 at [place] for add-on wound washout (possible shunt explant) . Shower, LAILA, linen change 12/05 @ 0900. -Eczema rash: L hand, steroid cream in room -Crani wound: Yellow stable purulent drainage from R head -COPD: uses O2 at night sometimes for comfort per home regimen, also uses neb tx PRN -Need 3 swabs to de isolate for MRSA. MRSA+ 04/29/2008 Barriers to discharge: Barriers to discharge: Wound wash out and hardware explant, possible bone flap. SURGERY ON Tuesday(per previous shift report) Meets Phase I Discharge Criteria (Stable For Transfer): Ye Major deviations/events or pertinent findings of eddie-operative stay: VSS in PACU, PIV to R forearm, RUQ abdominal incision with surgical dressing CDI, R head incision with telfa and crani cap in place- some sanguinous drainage on telfa but no new drainage since crani cap ch anged (to achieve better fit of cap) Anticipated post-op needs/devices/follow up: maintain antibiotics, will need CT some time t onight per Abrahan Cameron MD- will need order, encourage pulmonary hygiene and tobacco cessation to improve wound healing and prevent infection- assess Cielo's readiness, will need helmet d/t explanted cranioplasty Past Medical History: Diagnosis Date Abnormal LFTs (liver function tests) Benign neoplasm of major salivary glands CAD in [place] artery s/p NSTEMI 12/27/2014; status post stent placement in the mid LAD Chronic pain Continuous tobacco abuse COPD on oxygen at night CVA (cerebral vascular accident) ([facility]) 2007 Essential hypertension GERD (gastroesophageal reflux disease) Goiter MRSA (methicillin resistant staph aureus) culture positive post cariotomy for SAH Otitis media recent abx preadmit Subarachnoid hemorrhage due to ruptured aneurysm ([facility]) 2007 Tobacco dependence Past Surgical History Procedure Laterality Date Partial thyroidectomy Right Hysterectomy Cholecystecomy Bladder suspension 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 Railway Engineer shunt Tympanoplasty Right 1987 Lumpectomy of left breast 1978 Coronary stent placement 12/28/2014 status post stent placement in the mid LAD * No Diagnosis Codes entered * Surgical Procedure Planned - Actual Procedure Performed: Procedure(s) with comments: CRANIAL WOUND WASHOUT - explant of cranioplasty; wound washout REMOVAL OF VENTRIULO-PERITONEAL SHUNT - possible removal of NETWORK MANAGEMENT SPECIALIST shunt Anesthesia: General & Local Length of procedure: In Room/Out of Room: 1 Hr 35 Min 54 Sec Surgeon(s) and Role: * Casey Hewitt MD - Primary OR positioning comments: supine Neuro: POSS Sedation Level: Sleep, Easy to Arouse Last pain medication given: Pain medication totals: see MAR Additional pain medication information: none Functional Epidural: N/A AESTHETICS INSTRUCTOR: N/A Respiratory: RR: 16, O2 Sat: 93 %, O2 Delivery: Oxymask Breath Sounds: WDL Except DARIEN: LLL: RUL: RLL: MELISSA No Comment: none Cardiac: BP: 107/53 HR: 88 GI: Nausea/Vomiting Status: No Signs/Symptoms: Interventions: Assessment: Comments: none : Last void: 1948 Contact Name: Eric () or Juan (ASHUTOSH) Contact Number: [phone] Family contacted: Yes Comment:update to brother Eric at time of transfer Belongings:upper dentures returned to Cielo, no other belongings in PACUNursing Handoff Patient Daily Goal: go to OR (12/05/171948) Patient Specific Preferences: wants coffee SAIDA if not having surgery (12/04/17 0832) [facility] IP NURSE HANDOFF: [facility] hospital course events: Cielo Bell is a 67 y.o. fem eugenie here for removal of infected crainioplasty and washout. 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 Patient was admitted to [facility] on evening of 12/05. SAFETY Patient/Family Target: Patient will not fall or have a near miss. Progress to Target: Improving As evidenced by: Patient has not gotten OOB but did not need reminders and calls appropriately when help i s needed. COMFORT/ANXIETY/BEHAVIOR Patient/Family Target: Patient will have pain managed adequately at her comfort level (5/10). Progress to Target: Improving As evidenced by: Patient denied any pain throughout the night. HYGIENE/INFECTION Patient/Family Target: Patient will maintain SpO2 >88% and wean off oxygen as possible. Progress to Target: Improving As evidenced by: Patient required 5 LPM on oxymask throughout the night to saturate above 88%. While she i s awake, she is capable of saturating at that rate with less or no supplemental oxygen. Recommendations Forward: Need Orthotics to fit for helmet Helmet whenever OOB Keep pressure off incision site HOB ad cadence Neuro checks + watch for shunt failure Barriers to discharge: Plastic Surgery Consult andoff - Emelyn Byrne RN - 12/05/2017 11:00 PM PDTFormatting of this note might be different from the origina l. Meets Phase I Discharge Criteria (Stable For Transfer): Ye Major deviations/events or pertinent findings of eddie-operative stay: VSS in PACU, PIV to R forearm, RUQ abdominal incision with surgical dressing CDI, R head incision with telfa and crani cap in place- some sanguinous drainage on telfa but no new drainage since crani cap ch anged (to achieve better fit of cap) Anticipated post-op needs/devices/follow up: maintain antibiotics, will need CT some time t onight per Abrahan Cameron MD- will need order, encourage pulmonary hygiene and tobacco cessation to improve wound healing and prevent infection- assess Cielo's readiness, will need helmet d/t explanted cranioplasty Past Medical History: Diagnosis Date Abnormal LFTs (liver function tests) Benign neoplasm of major salivary glands CAD in [place] artery s/p NSTEMI 12/27/2014; status post stent placement in the mid LAD Chronic pain Continuous tobacco abuse COPD on oxygen at night CVA (cerebral vascular accident) ([facility]) 2007 Essential hypertension GERD (gastroesophageal reflux disease) Goiter MRSA (methicillin resistant staph aureus) culture positive post cariotomy for SAH Otitis media recent abx preadmit Subarachnoid hemorrhage due to ruptured aneurysm ([facility]) 2007 Tobacco dependence Past Surgical History Procedure Laterality Date Partial thyroidectomy Right Hysterectomy Cholecystecomy Bladder suspension 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 Railway Engineer shunt Tympanoplasty Right 1987 Lumpectomy of left breast 1978 Coronary stent placement 12/28/2014 status post stent placement in the mid LAD * No Diagnosis Codes entered * Surgical Procedure Planned - Actual Procedure Performed: Procedure(s) with comments: CRANIAL WOUND WASHOUT - explant of cranioplasty; wound washout REMOVAL OF VENTRIULO-PERITONEAL SHUNT - possible removal of NETWORK MANAGEMENT SPECIALIST shunt Anesthesia: General & Local Length of procedure: In Room/Out of Room: 1 Hr 35 Min 54 Sec Surgeon(s) and Role: * Casey Hewitt MD - Primary OR positioning comments: supine Neuro: POSS Sedation Level: Frequently Drowsy, Arousable, Drifts Off to Sleep during Conve rsation Last pain medication given: Pain medication totals: see MAR Additional pain medication information: none Functional Epidural: N/A AESTHETICS INSTRUCTOR: N/A Respiratory: RR: (!) 25, O2 Sat: 91 %, O2 Delivery: Nasal cannula Breath Sounds: WDL Except DARIEN: LLL: RUL: RLL: MELISSA No Comment: none Cardiac: BP: 143/80 HR: 90 GI: Nausea/Vomiting Status: No Signs/Symptoms: Interventions: Assessment: Comments: none : Last void: 1948 Contact Name: Eric () sachin Martinez (ASHUTOSH) Contact Number: [phone] Family contacted: Yes Comment:update to brother Eric at time of transfer Belongings:upper dentures returned to Cielo, no other belongings in PACUElectronically sig gem by Silvia Byrne RN at 12/05/2017 11:15 PM PDTHandoff - Diana Pollock RN - 12/06/19 5:42 PM PDTNursing Handoff Patient Daily Goal: Have surgery (12/05/17 0820) Patient Specific Preferences: wants coffee SAIDA if not having surgery (12/04/17 0832) [facility] IP NURSE HANDOFF: [facility] hospital course events: Per previous RN handoff: 67 y.o. female with CAD s/p CO, HTN, GERD, tobacco use, and a long neurosurgical history we ll known to our service. In brief, she presented in 09/2007 with HH4F3 SAH due to a ruptured AComm aneurysm, s/p Right pterional craniotomy for clipping. She re-presented with hydroceph alus and had a Right frontal VPS placed in 03/2008 (medium-pressure valve.) This shunt has be en tapped once, for concern of infection, and never revised. She reports today that at some point it was deemed "non-functional" but there is no clear documentation of this. She re-pre sented again with erosion of a cranial plating screw through her scalp and associated crania l defect, and was taken for a synthetic cranioplasty in 10/2015. She has been doing well sinc e then, with no headaches or focal neurologic deficits; she manages all of her own ADLs at h ome. SAFETY Patient/Family Target: Cielo will remain NPO and have stable exam while waiting for surgery Progress to Target: Improving As evidenced by: --Add on for OR today. As of 1744, not called yet. --Asked for update from [facility], but did not hear back about going to OR today. HYGIENE/INFECTION Patient/Family Target: Cielo will be ready for surgery by having shower and LAILA Progress to Target: Improving As evidenced by: --INSPECTOR BICYCLE completed shower, LAILA and linen change at 0900 NURSING ASSESSMENT & RECOMMENDATIONS FORWARD Nursing Assessment of Patient Stability Risk: Moderately stable Recommendations Forward: -NPO 12/05 at [place] for add-on wound washout (possible shunt explant) . Shower, LAILA, linen change 12/05 @ 0900. -Eczema rash: L hand, steroid cream in room -Crani wound: Yellow stable purulent drainage from R head -COPD: uses O2 at night sometimes for comfort per home regimen, also uses neb tx PRN -Need 3 swabs to de isolate for MRSA. MRSA+ 04/29/2008 Barriers to discharge: Barriers to discharge: Wound wash out and hardware explant, possible bone flap. SURGERY ON Tuesday(per previous shift report) andoff - Basil, Vt ALEKSANDAR ferguson - 12/05/2017 5:46 AM PDTNursing Handoff Patient Daily Goal: Find out the plan for surgery- would like to be taken off NPO if not posadas ving sx today (12/04/17831) Patient Specific Preferences: wants coffee SAIDA if not having surgery (12/04/17831) [facility] IP NURSE HANDOFF: Nes[facility]itt hospital course events: Per previous RN handoff: 67 y.o. female with CAD s/p CO, HTN, GERD, tobacco use, and a long neurosurgical history we ll known to our service. In brief, she presented in 09/2007 with HH4F3 SAH due to a ruptured AComm aneurysm, s/p Right pterional craniotomy for clipping. She re-presented with hydroceph alus and had a Right frontal VPS placed in 03/2008 (medium-pressure valve.) This shunt has be en tapped once, for concern of infection, and never revised. She reports today that at some point it was deemed "non-functional" but there is no clear documentation of this. She re-pre sented again with erosion of a cranial plating screw through her scalp and associated crania l defect, and was taken for a synthetic cranioplasty in 10/2015. She has been doing well sinc e then, with no headaches or focal neurologic deficits; she manages all of her own ADLs at [facility]. SAFETY Patient/Family Target: Cielo will use call light for assistance to the BR/walk out in the crain. Progress to Target: Improving As evidenced by: Cielo wait for assistance to the BR;No fall or injury this shift. NURSING ASSESSMENT & RECOMMENDATIONS FORWARD Nursing Assessment of Patient Stability Risk: Moderately stable Recommendations Forward: -Eczema rask L hand -Yellow stable purulent drainage from R head -COPD, uses O2 at night sometimes for comfort per home regimen. -NPO after MN, surgery start time around add on for 10:00am today. -up with one supervision. -Need shower and LAILA -Need 3 swabs to de isolate for MRSA. MRSA+ 04/29/2008 Barriers to discharge: Barriers to discharge: Wound wash out and hardware explant, possible bone flap. SURGERY ON Tuesday(per previous shift report) andoff - Frankie White RN - 12/04/2017 5:11 PM PDTNursing Handoff Patient Daily Goal: Find out the plan for surgery- would like to be taken off NPO if not posadas ving sx today (12/04/17831) Patient Specific Preferences: wants coffee SAIDA if not having surgery (12/04/17831) [facility] IP NURSE HANDOFF: Nes[facility]itt hospital course events: Per previous RN handoff: 67 y.o. female with CAD s/p CO, HTN, GERD, tobacco use, and a long neurosurgical history we ll known to our service. In brief, she presented in 09/2007 with HH4F3 SAH due to a ruptured AComm aneurysm, s/p Right pterional craniotomy for clipping. She re-presented with hydroceph alus and had a Right frontal VPS placed in 03/2008 (medium-pressure valve.) This shunt has be en tapped once, for concern of infection, and never revised. She reports today that at some point it was deemed "non-functional" but there is no clear documentation of this. She re-pre sented again with erosion of a cranial plating screw through her scalp and associated crania l defect, and was taken for a synthetic cranioplasty in 10/2015. She has been doing well sinc e then, with no headaches or focal neurologic deficits; she manages all of her own ADLs at h ome. SAFETY Patient/Family Target: Cielo will use call light for assistance to the BR/walk out in the crain. Progress to Target: Improving As evidenced by: Cielo wait for assistance to the BR;No fall or injury this shift. NURSING ASSESSMENT & RECOMMENDATIONS FORWARD Nursing Assessment of Patient Stability Risk: Moderately stable Recommendations Forward: -Eczema rask L hand -Yellow stable purulent drainage from R head -COPD, uses O2 at night sometimes for comfort per home regimen. -NPO after MN, surgery start time around 10:00am tomorrow. -up with one supervision. -Need shower and LAILA Barriers to discharge: Barriers to discharge: Wound wash out and hardware explant, possible bone flap. SURGERY ON Tuesday(per previous shift report) andoff - Torey Faulkner RN - 12/04/2017 2:51 PM PDTNursing Handoff Patient Daily Goal: Find out the plan for surgery- would like to be taken off NPO if not posadas ving sx today (12/04/17831) Patient Specific Preferences: wants coffee SAIDA if not having surgery (12/04/17831) [facility] IP NURSE HANDOFF: Nesbitt hospital course events: Per previous RN handoff: 67 y.o. female with CAD s/p CO, HTN, GERD, tobacco use, and a long neurosurgical history we ll known to our service. In brief, she presented in 09/2007 with HH4F3 SAH due to a ruptured AComm aneurysm, s/p Right pterional craniotomy for clipping. She re-presented with hydroceph alus and had a Right frontal VPS placed in 03/2008 (medium-pressure valve.) This shunt has be en tapped once, for concern of infection, and never revised. She reports today that at some point it was deemed "non-functional" but there is no clear documentation of this. She re-pre sented again with erosion of a cranial plating screw through her scalp and associated crania l defect, and was taken for a synthetic cranioplasty in 10/2015. She has been doing well sin e then, with no headaches or focal neurologic deficits; she manages all of her own ADLs at [facility]. NURSING ASSESSMENT & RECOMMENDATIONS FORWARD Nursing Assessment of Patient Stability Risk: Moderately stable Recommendations Forward: Eczema rask L hand Yellow stable purulent drainage from R head COPD, uses O2 at night sometimes for comfort per home regimen Barriers to discharge: Wound wash out and hardware explant, possible bone flap. SURGERY ON TUESDAY andoff - Berry Sandoval RN - 12/04/2017 5:53 AM PDTNursing Handoff Patient Daily Goal: Sleep, get a plan for fix head (12/03/17 2200) [facility] IP NURSE HANDOFF: Nesbitt hospital course events: 67 y.o. female with CAD s/p CO, HTN, EULALIA D, tobacco use, and a long neurosurgical history well known to our service. In brief, she pr esented in 09/2007 with HH4F3 SAH due to a ruptured AComm aneurysm, s/p Right pterional crani otomy for clipping. She re-presented with hydrocephalus and had a Right frontal VPS placed i n 03/2008 (medium-pressure valve.) This shunt has been tapped once, for concern of infection, and never revised. She reports today that at some point it was deemed "non-functional" but there is no clear documentation of this. She re-presented again with erosion of a cranial pl ating screw through her scalp and associated cranial defect, and was taken for a synthetic c ranioplasty in 10/2015. She has been doing well since then, with no headaches or focal neurol ogic deficits; she manages all of her own ADLs at home. SAFETY Patient/Family Target: Cielo will ambulate safely and make her needs known Progress to Target: Improving As evidenced by: Cielo is steady on feet ad cadence during the day, SBA for line maintance at night. Has not called but verbalizes needs on nurse roundings COMFORT/ANXIETY/BEHAVIOR Patient/Family Target: Cielo will have pain control Progress to Target: Improving As evidenced by: Cielo reports mild lower back pain and head tenderness, APAP given this am for Head pain and lidocaine patch applied to low back. Pt reports relief NURSING ASSESSMENT & RECOMMENDATIONS FORWARD Nursing Assessment of Patient Stability Risk: Moderately stable Recommendations Forward: NPO since MN Eczema rask L hand Yellow stable purulent drainage from R head COPD, uses O2 at night sometimes for comfort per home regimen Barriers to discharge: Wound wash out and hardware explant documented in this encounter Plan of Treatment Not on filedocumented as of this encounter Procedures + +--------+ + + + | Procedure Name | Priori | Date/Time | Associated Diagnosis | Comments | | | ty | | | | + +--------+ + + + | X-RAY PORTABLE | Urgent | 12/09/2017 | | Results for this | | ABDOMEN 1 VIEW | | 3:48 PM | | procedure are in the | | | | PDT | | results section. | + +--------+ + + + | CBC (HEMOGRAM) ONLY | Routin | 12/09/2017 | | Results for this | | | e | 4:32 AM | | procedure are in the | | | | PDT | | results section. | + +--------+ + + + | CBC ONLY | Routin | 12/09/2017 | | Results for this | | | e | 4:32 AM | | procedure are in the | | | | PDT | | results section. | + +--------+ + + + | CBC (HEMOGRAM) ONLY | Routin | 12/08/2017 | | Results for this | | | e | 5:13 AM | | procedure are in the | | | | PDT | | results section. | + +--------+ + + + | CBC ONLY | Routin | 12/08/2017 | | Results for this | | | e | 5:13 AM | | procedure are in the | | | | PDT | | results section. | + +--------+ + + + | X-RAY PORTABLE CHEST | Urgent | 12/07/2017 | | Results for this | | PICC LINE | | 1:17 PM | | procedure are in the | | CHECK | | PDT | | results section. | | | | | | | + +--------+ + + + | PICC LINE | Routin | 12/07/2017 | | Results for this | | | e | 11:59 AM | | procedure are in the | | | | PDT | | results section. | + +--------+ + + + | VANCOMYCIN, TROUGH | Routin | 12/07/2017 | | Results for this | | | e | 11:14 AM | | procedure are in the | | | | PDT | | results section. | + +--------+ + + + | RENAL FUNCTION SET | Routin | 12/07/2017 | | Results for this | | (NA,K,CL,CO2,BUN,CRE | e | 11:14 AM | | procedure are in the | | AT,GLUC,CA,PHOS,ALB | | PDT | | results section. | | ) | | | | | + +--------+ + + + | VAT: PICC INSERTION | Routin | 12/07/2017 | | Results for this | | W/US | e | 8:39 AM | | procedure are in the | | | | PDT | | results section. | + +--------+ + + + | CBC (HEMOGRAM) ONLY | Routin | 12/07/2017 | | Results for this | | | e | 6:22 AM | | procedure are in the | | | | PDT | | results section. | + +--------+ + + + | CBC ONLY | Routin | 12/07/2017 | | Results for this | | | e | 6:22 AM | | procedure are in the | | | | PDT | | results section. | + +--------+ + + + | OPERATION RECORD | | 12/06/2017 | | Results for this | | | | 2:12 AM | | procedure are in the | | | | PDT | | results section. | + +--------+ + + + | CT HEAD WO CONTRAST | Routin | 12/06/2017 | | Results for this | | | e | 1:29 AM | | procedure are in the | | | | PDT | | results section. | + +--------+ + + + | CAPILLARY BLOOD | Routin | 12/05/2017 | Draining | Results for this | | GLUCOSE (NO CHG), | e | 10:27 PM | postoperative wound, | procedure are in the | | POC | | PDT | initial encounter | results section. | + +--------+ + + + | PROCEDURE NOTE | Routin | 12/05/2017 | | Results for this | | | e | 10:14 PM | | procedure are in the | | | | PDT | | results section. | + +--------+ + + + | CULTURE, TISSUE | Urgent | 12/05/2017 | | Results for this | | | | 9:37 PM | | procedure are in the | | | | PDT | | results section. | + +--------+ + + + | CULTURE, WOUND | Routin | 12/05/2017 | | Results for this | | ABSCESS OR ASPIRATE | e | 9:37 PM | | procedure are in the | | W/ ANAEROBE | | PDT | | results section. | + +--------+ + + + | CULTURE, WOUND | Routin | 12/05/2017 | | Results for this | | ABSCESS OR ASPIRATE | e | 9:35 PM | | procedure are in the | | W/ ANAEROBE | | PDT | | results section. | + +--------+ + + + | CULTURE, CATH TIP | Routin | 12/05/2017 | | Results for this | | BACTI | e | 9:30 PM | | procedure are in the | | | | PDT | | results section. | + +--------+ + + + | REMOVAL OF | | 12/05/2017 | wound infection | | | VENTRIULO-PERITONEAL | | 8:49 PM | | | | SHUNT | | PDT | | | + +--------+ + + + | CRANIAL WOUND | | 12/05/2017 | wound infection | | | WASHOUT | | 8:49 PM | | | | | | PDT | | | + +--------+ + + + | CAPILLARY BLOOD | Routin | 12/05/2017 | Draining | Results for this | | GLUCOSE (NO CHG), | e | 8:26 PM | postoperative wound, | procedure are in the | | POC | | PDT | initial encounter | results section. | + +--------+ + + + | BASIC METABOLIC SET | Routin | 12/05/2017 | | Results for this | | (NA, K, CL, TCO2, | e | 5:24 AM | | procedure are in the | | BUN, CR, GLU, CA) | | PDT | | results section. | + +--------+ + + + | ANTIBODY SCREEN | Routin | 12/05/2017 | | Results for this | | | e | 5:24 AM | | procedure are in the | | | | PDT | | results section. | + +--------+ + + + | TYPE AND SCREEN | Routin | 12/05/2017 | | Results for this | | | e | 5:24 AM | | procedure are in the | | | | PDT | | results section. | + +--------+ + + + | ABO & RH TYPE | Routin | 12/05/2017 | | Results for this | | | e | 5:24 AM | | procedure are in the | | | | PDT | | results section. | + +--------+ + + + | CBC (HEMOGRAM) ONLY | Routin | 12/05/2017 | | Results for this | | | e | 5:23 AM | | procedure are in the | | | | PDT | | results section. | + +--------+ + + + | CBC ONLY | Routin | 12/05/2017 | | Results for this | | | e | 5:23 AM | | procedure are in the | | | | PDT | | results section. | + +--------+ + + + | COAGULOPATHY PANEL | Routin | 12/05/2017 | | Results for this | | (INR,APTT,FIBRINOGEN | e | 5:23 AM | | procedure are in the | | ) | | PDT | | results section. | + +--------+ + + + | CARDIOLOGY | | 12/05/2017 | | Results for this | | | | 12:00 AM | | procedure are in the | | | | PDT | | results section. | + +--------+ + + + | 12 LEAD ECG | Routin | 12/04/2017 | | Results for this | | | e | 5:59 PM | | procedure are in the | | | | PDT | | results section. | + +--------+ + + + | CULTURE, BLOOD BACTI | Urgent | 12/03/2017 | | Results for this | | & YEAST [facility] | | 11:31 PM | | procedure are in the | | | | PDT | | results section. | + +--------+ + + + | SEDIMENTATION RATE | Routin | 12/03/2017 | | Results for this | | | e | 11:31 PM | | procedure are in the | | | | PDT | | results section. | + +--------+ + + + | CULTURE, BLOOD BACTI | Urgent | 12/03/2017 | | Results for this | | & YEAST | | 11:31 PM | | procedure are in the | | | | PDT | | results section. | + +--------+ + + + | CBC (HEMOGRAM) ONLY | Routin | 12/03/2017 | | Results for this | | | e | 11:30 PM | | procedure are in the | | | | PDT | | results section. | + +--------+ + + + | INR | Routin | 12/03/2017 | | Results for this | | | e | 11:30 PM | | procedure are in the | | | | PDT | | results section. | + +--------+ + + + | BASIC METABOLIC SET | Routin | 12/03/2017 | | Results for this | | (NA, K, CL, TCO2, | e | 11:30 PM | | procedure are in the | | BUN, CR, GLU, CA) | | PDT | | results section. | + +--------+ + + + | C-REACTIVE PROTEIN | Routin | 12/03/2017 | | Results for this | | | e | 11:30 PM | | procedure are in the | | | | PDT | | results section. | + +--------+ + + + | CBC ONLY | Routin | 12/03/2017 | | Results for this | | | e | 11:30 PM | | procedure are in the | | | | PDT | | results section. | + +--------+ + + + | APTT (ACT. PART. | Routin | 12/03/2017 | | Results for this | | THROMBO TIME) | e | 11:30 PM | | procedure are in the | | | | PDT | | results section. | + +--------+ + + + documented in this encounter Results X-RAY PORTABLE ABDOMEN 1 VIEW (12/09/2017 3:48 PM PDT) + + | Specimen | + + | | + + + + + | Narrative | Performed At | + + + | EXAM: DE ABDOMEN 1 VIEW History: Concern for SBO, post-surgical | [facility] | | ileus Comparison: None available. FINDINGS/IMPRESSION: | RADIOLOGY VOICE | | Cholecystectomy clips within the right upper quadrant Single | RECOGNITION 2 | | radiograph demonstrates air-fluid level within the stomach, and | | | multiple air-fluid levels throughout the abdomen. Examination was | | | semiupright, and findings could represent developing ileus or small | | | bowel obstruction. Repeat film, with supine, and upright films, or | | | alternatively CT examination would be helpful for further | | | characterization. Small left effusion and underlying atelectasis. | | | Moderate atherosclerotic burden. I have personally reviewed the | | | images and, if necessary, edited the report. I agree with the report | | | as now presented. Final signature: Lei Chun MD | | | 12/09/2017 4:21 PM Preliminary: Lei Chun MD | | | Dictation initiated: Lei Chun MD 12/09/2017 4:19 PM | | + + + + + | Procedure Note | + + | Service Account, [employer] Res In Interface - 12/09/2017 4:22 PM PDT EXAM: DE ABDOMEN | | 1 VIEW History: Concern for SBO, post-surgical ileus Comparison: None available. | | FINDINGS/IMPRESSION: Cholecystectomy clips within the right upper quadrant Single | | radiograph demonstrates air-fluid level within the stomach, and multiple air-fluid | | levels throughout the abdomen. Examination was semiupright, and findings could represent | | developing ileus or small bowel obstruction. Repeat film, with supine, and upright | | films, or alternatively CT examination would be helpful for further characterization. | | Small left effusion and underlying atelectasis. Moderate atherosclerotic burden. I have | | personally reviewed the images and, if necessary, edited the report. I agree with the | | report as now presented. Final signature: Lei Chun MD 12/09/2017 4:21 | | PM Preliminary: Lei Chun MD Dictation initiated: Tamar Pretty | 12/09/2017 4:19 PM | | | |I have personally reviewed the images and, if necessary, edited the report. I agree with th e report as now presented. | | | |Final signature: Lei Chun MD 12/09/2017 4:21 PM | |Preliminary: Lei Chun MD | |Dictation initiated: Lei Chun MD 12/09/2017 4:19 PM | + + + +---------+ + + | Performing | Address | City/State/Zipcode | Phone Number | | Organization | | | | + +---------+ + + | [facility] | | | | | VOICE RECOGNITION 2 | | | | + +---------+ + + CBC (HEMOGRAM) ONLY (12/09/2017 4:32 AM PDT) + + + + + + | Component | Value | Ref Range | Performed | Pathologist | | | | | At | Signature | + + + + + + | WHITE CELL | 9.56 | 3.50 - 10.80 | [facility] | | | COUNT | | K/cu mm | LABORATORY | | | | | | SERVICES, | | | | | | CORE | | + + + + + + | RED CELL | 3.21 (L) | 4.00 - 5.20 | [facility] [...] + + + + | HEMATOCRIT | 30.4 (L) | 36.0 - 46.0 % | [facility] | | | | | | LABORATORY | | | | | | SERVICES, | | | | | | CORE | | + + + + + + | MCV | 94.7 | 80.0 - 100.0 fL | [facility] | | | | | | LABORATORY | | | | | | SERVICES, | | | | | | CORE | | + + + + + + | MCHC | 33.9 | 32.0 - 36.0 | [facility] | | | | | g/dL | LABORATORY | | | | | | SERVICES, | | | | | | CORE | | + + + + + + | RDW SD | 44.7 | 35.1 - 46.3 fL | [facility] | | | | | | LABORATORY | | | | | | SERVICES, | | | | | | CORE | | + + + + + + | PLATELET | 289 | 150 - 400 K/cu | [facility] | | | COUNT | | mm | LABORATORY | | | | | | SERVICES, | | | | | | CORE | | + + + + + + | MPV | 9.6 (L) | 9.7 - 12.3 fL | [facility] [...] Performed At | + + + | New reference ranges for MCV, MCHC, PLT, IG% and IG# effective | [facility] | | 06/30/2017 | LABORATORY | | | SERVICES, CORE | + + + + + + + + | Performing | Address | City/State/Zipcode | Phone Number | | Organization | | | | + + + + + | [facility] | [address] | [place] [address] | | | SERVICES, CORE | [address] | | | + + + + + CBC (HEMOGRAM) ONLY (12/08/2017 5:13 AM PDT) + + + + + + | Component | Value | Ref Range | Performed | Pathologist | | | | | At | Signature | + + + + + + | WHITE CELL | 10.02 | 3.50 - 10.80 | [facility] | | | COUNT | | K/cu mm | LABORATORY | | | | | | SERVICES, | | | | | | CORE | | + + + + + + | RED CELL | 3.16 (L) | 4.00 - 5.20 | [facility] | | | COUNT | | M/cu mm | LABORATORY | | | | | | SERVICES, | | | | | | CORE | | + + + + + + | HEMOGLOBIN | 9.9 (L) | 12.0 - 16.0 | [facility] | | | | | g/dL | LABORATORY | | | | | | SERVICES, | | | | | | CORE | | + + + + + + | HEMATOCRIT | 29.4 (L) | 36.0 - 46.0 % | [facility] | | | | | | LABORATORY | | | | | | SERVICES, | | | | | | CORE | | + + + + + + | MCV | 93.0 | 80.0 - 100.0 fL | [facility] | | | | | | LABORATORY | | | | | | SERVICES, | | | | | | CORE | | + + + + + + | MCHC | 33.7 | 32.0 - 36.0 | [facility] | | | | | g/dL | LABORATORY | | | | | | SERVICES, | | | | | | CORE | | + + + + + + | RDW SD | 43.7 | 35.1 - 46.3 fL | [facility] | | | | | | LABORATORY | | | | | | SERVICES, | | | | | | CORE | | + + + + + + | PLATELET | 296 | 150 - 400 K/cu | [facility] | | | COUNT | | mm | LABORATORY | | | | | | SERVICES, | | | | | | CORE | | + + + + + + | MPV | 9.5 (L) | 9.7 - 12.3 fL | [facility] [...] Performed At | + + + | New reference ranges for MCV, MCHC, PLT, IG% and IG# effective | [facility] | | 06/30/2017 | LABORATORY | | | SERVICES, CORE | + + + + + + + + | Performing | Address | City/State/Zipcode | Phone Number | | Organization | | | | + + + + + | [facility] | [address] | [place] [address] | | | SERVICES, CORE | [address] | | | + + + + + X-RAY PORTABLE CHEST PICC LINE CHECK (12/07/2017 1:17 PM PDT) + + | Specimen | + + | | + + + + + | Narrative | Performed At | + + + | EXAM: DE CHEST PICC LINE CHECK HISTORY: new picc placement, pt | [facility] | | ready COMPARISON: 04/29/2008 FINDINGS: Right upper | RADIOLOGY VOICE | | extremity PICC tip is in the region of the cavoatrial junction. NETWORK MANAGEMENT SPECIALIST | RECOGNITION 2 | | shunt projects over the right hemithorax. Fullness in the left | | | paratracheal region of the thoracic inlet consistent with enlarged | | | left thyroid. Mediastinal contours otherwise normal. Heart size is | | | normal. The lungs are clear. IMPRESSION: Right upper extremity | | | PICC tip in the region of the cavoatrial junction. Clear lungs. | | | I have personally reviewed the images and, if necessary, edited the | | | report. I agree with the report as now presented. Final | | | signature: Niraj Ramos MD 12/07/2017 1:24 PM Preliminary: | | | Niraj Ramos MD Dictation initiated: Niraj Ramos MD | | | 12/07/2017 1:22 PM | | + + + + + | Procedure Note | + + | Service Account, [facility] Res In Interface - 12/07/2017 1:25 PM PDT EXAM: DE CHEST | | PICC LINE CHECK HISTORY: new picc placement, pt ready COMPARISON: 04/29/2008 FINDINGS: | | Right upper extremity PICC tip is in the region of the cavoatrial junction. NETWORK MANAGEMENT SPECIALIST shunt | | projects over the right hemithorax. Fullness in the left paratracheal region of the | | thoracic inlet consistent with enlarged left thyroid. Mediastinal contours otherwise | | normal. Heart size is normal. The lungs are clear. IMPRESSION: Right upper extremity | | PICC tip in the region of the cavoatrial junction. Clear lungs. I have personally | | reviewed the images and, if necessary, edited the report. I agree with the report as now | | presented. Final signature: Niraj Ramos MD 12/07/2017 1:24 PM Preliminary: Niraj | | MD Richard Dictation initiated: Niraj Ramos MD 12/07/2017 1:22 PM | | | |IMPRESSION: | | | |Right upper extremity PICC tip in the region of the cavoatrial junction. | | | |Clear lungs. | | | |I have personally reviewed the images and, if necessary, edited the report. I agree with th e report as now presented. | | | |Final signature: Niraj Ramos MD 12/07/2017 1:24 PM | |Preliminary: Niraj Ramos MD | |Dictation initiated: Niraj Ramos MD 12/07/2017 1:22 PM | + + + +---------+ + + | Performing | Address | City/State/Zipcode | Phone Number | | Organization | | | | + +---------+ + + | [facility] | | | | | VOICE RECOGNITION 2 | | | | + +---------+ + + PICC LINE (12/07/2017 11:59 AM PDT) + + + | Narrative | Performed At | + + + | Laura Nunez RN 12/07/2017 1:15 PM PICC LINE | | | Performed by: LAURA NUNEZ Authorized by: MAGNOLIA DIEGO | | | PICC/Midline Insertion Procedure Note Indications:Antibiotics | | | Procedure location: Unit:10 Room: 17 Providers: Attending name: | | | Attending physically present: No PICC Nurse name: Laura La | | | Allen RN,BSN,VAT Assisted by Francia kumari RN,VAT Pre-Procedure | | | Consent: written consent obtained Consent given by: Patient | | | Patient identity confirmed per protocol: Yes Team Pause: Immediatly | | | prior to the procedure a pause per protocol was called. A pause | | | verifies correct patient, procedure, equipment, customer support assistant and | | | site/side marked as required. CLABSI Prevention Bundle: Skin | | | preparation: Chloraprep Protective barrier: Cap, Mask, Hand | | | scrub, Gown, Gloves and Full body drape. Cap and mask worn by | | | assistive personnel.Sterile Ultrasound techniques (sterile gel, and | | | sterile probe cover) used Dressing: | | | Dressing applied prior of removal of full barrier drape and | | | hemostatic agent applied Procedure Details Patient was placed in | | | appropriate position The vascular anatomy was identified by | | | Ultrasound Guidance.wire through the needle, introducer over the | | | wire, then catheter through the introducer Tip was placed using TLS | | | (Tip Locating System) and TPS (Tip Positioning System). . A | | | non-tunneled PICC Single lumen 4 Fr was placed in the Right Arm | | | area Basilic vein. Catheter lot number: [id number] with a length of 55 | | | cm was selected and trimmed 15 to a remaining length of 40 cm | | | All ports aspirated for blood and flushed with saline Procedure | | | comments: Arm circ= 27 cm Vessel diameter = .51 Power-injectable | | | line: yes Attempts 1 attempt(s) were made Complications None | | | PICC catheter tip location Chest radiograph ordered to verify | | | placement and Line verified by radiograph Adjustments made after | | | chest film obtained: none External measurement of catheter exposed: 1 | | | cm. PICC catheter tip location: Cavo-Atrial Junction Estimated | | | blood loss: <10mL | | + + + RENAL FUNCTION SET (NA,K,CL,CO2,BUN,CREAT,GLUC,CA,PHOS,ALB ) (12/07/2017 11:14 AM PDT) + +---------+ + + + [...] | | | LABORATORY | | | [facility] | | | SERVICES, | | | [...] +---------+ + + + | POTASSIUM, | 5.0 | 3.4 - 5.0 | [facility] | | | PLASMA | | mmol/L | LABORATORY | | | (LAB) | | | SERVICES, | | | | | | CORE | | + +---------+ + + + | CHLORIDE, | 104 | 97 - 108 mmol/L | [facility] [...] +---------+ + + + | CALCIUM(ALB | 9.6 | 8.6 - 10.2 | [facility] | | | CORRECTED) | | mg/dL | LABORATORY | | | | | | SERVICES, | | | | | | CORE | | + +---------+ + + + | ALBUMIN, | 2.5 (L) | 3.5 - 4.7 g/dL | [facility] | | | PLASMA | | | LABORATORY | | | (LAB) | | | SERVICES, | | | | | | CORE | | + +---------+ + + + | PHOSPHORUS, | 2.4 | 2.4 - 4.7 mg/dL | [facility] [...] + + + | ANION GAP | 11 | 4 - 11 mmol/L | [facility] | | | | | | LABORATORY | | | | | | SERVICES, | | | | | | CORE | | + +---------+ + + + | ANION | 14 (H) | 4 - 11 mmol/L | [facility] [...] At | + + + | Please draw vancomycin trough immediately prior to 1200 dose on | [facility] | | 12/07. Okay to give dose after drawing trough. Questions, page #[phone]. | LABORATORY | | Thank you. GFR is estimated using the MDRD equation recommended by | SERVICES, CORE | | the National Kidney Disease Education Program. Estimated GFR | | | Interpretive Information: <60 mL/min/1.73 sq m | | | Chronic Kidney Disease <15 mL/min/1.73 [...] Rapidly changing kidney | | | function - Amputees, paraplegics, or other muscle-wasting diseses | | + + + + + + + + | Performing | Address | City/State/Zipcode | Phone Number | | Organization | | | | + + + + + | [facility] | [address] | [place] [address] | | | SERVICES, CORE | [address] | | | + + + + + VANCOMYCIN, TROUGH (12/07/2017 11:14 AM PDT) + +-------+ + + + | Component | Value | Ref Range | Performed | Pathologist | | | | | At | Signature | + +-------+ + + + | VANCOMYCIN, | 11.9 | 10.0 - 20.0 | [facility] | [...] At | + + + | Please draw vancomycin trough immediately prior to 1200 dose on | [facility] | | 12/07. Okay to give dose after drawing trough. Questions, page #[phone]. | LABORATORY | | Thank you. | SERVICES, [facility] | + + + + + + + + | Performing | Address | City/State/Zipcode | Phone Number | | Organization | | | | + + + + + | [facility] | [address] | [place] [address] | | | SERVICES, CORE | [address] | | | + + + + + VAT: PICC INSERTION W/US (12/07/2017 8:39 AM PDT) + + | Specimen | + + | | + + + + + | Narrative | Performed At | + + + | See procedure note. | | + + + CBC (HEMOGRAM) ONLY (12/07/2017 6:22 AM PDT) + + + + + + | Component | Value | Ref Range | Performed | Pathologist | | | | | At | Signature | + + + + + + | WHITE CELL | 13.50 (H) | 3.50 - 10.80 | [facility] | | | COUNT | | K/cu mm | LABORATORY | | | | | | SERVICES, | | | | | | CORE | | + + + + + + | RED CELL | 3.38 (L) | 4.00 - 5.20 | [facility] | | | COUNT | | M/cu mm | LABORATORY | | | | | | SERVICES, | | | | | | CORE | | + + + + + + | HEMOGLOBIN | 10.7 (L) | 12.0 - 16.0 | [facility] | | | | | g/dL | LABORATORY | | | | | | SERVICES, | | | | | | CORE | | + + + + + + | HEMATOCRIT | 32.0 (L) | 36.0 - 46.0 % | [facility] | | | | | | LABORATORY | | | | | | SERVICES, | | | | | | CORE | | + + + + + + | MCV | 94.7 | 80.0 - 100.0 fL | [facility] [...] + + + | RDW SD | 45.0 | 35.1 - 46.3 fL | [facility] | | | | | | LABORATORY | | | | | | SERVICES, | | | | | | CORE | | + + + + + + | PLATELET | 321 | 150 - 400 K/cu | [facility] | | | COUNT | | mm | LABORATORY | | | | | | SERVICES, | | | | | | CORE | | + + + + + + | MPV | 9.6 (L) | 9.7 - 12.3 fL | [facility] [...] Performed At | + + + | New reference ranges for MCV, MCHC, PLT, IG% and IG# rizwana | [facility] | | 06/30/2017 | LABORATORY | | | [facility] | + + + + + + + + | Performing | Address | City/State/Zipcode | Phone Number | | Organization | | | | + + + + + | [facility] | [address] | [place] [address] | | | [place] [place] | [address] | | | + + + + + OPERATION RECORD (12/06/2017 2:12 AM PDT) + + | Procedure Note | + + | Casey Hewitt MD - 12/06/2017 2:12 AM PDT Date of Service: 12/05/2017 Attending | | Surgeon:Casey Hewitt MD Heater Engineer Helper(s):Bari Cameron MD. | | Preoperative Diagnosis: Right-sided wound dehiscence and infection with | | epidural abscess.Postoperative Diagnosis: Right-sided wound dehiscence and infection | | with epidural abscess.Procedure: Removal of the right-sided previous cranioplasty, | | removal of the right-sided ventriculoperitoneal shunt, evacuation of the right-sided | | epidural abscess and wound washout with debridement of the wound.Brief Clinical History: | | Cielo Bell is a 67-year-old female who initially presented with a subarachnoid | | hemorrhage secondary to an aneurysm rupture where the patient was taken down to the OR | | for clipping with decompressive craniectomy. The patient had a long recovery with a | | shunt placement and cranioplasty placement. The patient's cranioplasty was complicated | | with a portion of the cranioplasty eroding through the skin previously. This has been | | repaired. Currently, the patient is presenting with pus coming out of her skin. She | | has the cranioplasty exposed. We discussed with the patient regarding the removal of | | the shunt and the cranioplasty plate. We explained the risks, benefits, and | | alternatives of the procedure. The patient wanted to proceed with surgery, and informed | | consent was obtained.Procedure Details: The patient was brought in the operating room | | where a formal time-out was performed with MRN, date of and name of the patient | | while the nursing, surgical and anesthesia staff were present in the operating room. | | Next, the patient was transferred to the operating table, and generalized anesthesia was | | induced by the anesthesia team with an endotracheal tube. All of the possible | | compression spots were padded appropriately. SCDs were placed for DVT prophylaxis. The | | patient received antibiotics after the cultures were sent. Next, the patient's head | | was turned to the left side, bringing the right side in the surgical field. We also | | prepped the patient sterilely for removal of the abdominal catheter of the | | ventriculoperitoneal shunt. Next, the patient's previous incision was prepped and | | draped in the usual sterile fashion after the hair along the incision line was clipped | | with a hair clipper. There was a 2 x 2 cm opening in the skin flap where the | | cranioplasty was exposed. This was in the middle of the skin flap away from the | | incision. We opened the incision with a scalpel down to bone. The tissues were | | retracted anteriorly. This exposed the previous cranioplasty plate. We removed all of | | the titanium plates and screws. Before the removal of the cranioplasty plate, | | initially, we removed the shunt. The proximal catheter was sent for cultures. Then we | | removed the valve and the distal catheter. The distal catheter snapped. For that | | reason, we went to the abdomen. We made a small incision at the previous incision. We | | found the abdominal catheter. We removed it from the peritoneum. We pulled it | | superiorly, which again snapped. There is probably a retained small catheter somewhere | | in the previously-tunneled tract along the chest. We left it in place. Then, we turned | | our attention to the removal of the cranioplasty plate. The cranioplasty plate was | | removed. All of the screws and the titanium plates were removed. There was a thick | | grumous pus-looking tissue collection at the epidural space. All of this was debrided | | until the live and bleeding tissue was observed. This was sent for cultures. There was | | basically a 2 x 2 cm hole in the middle of the skin flap. We started the closure after | | the wound was irrigated with a copious amount of antibiotic irrigation. The abdominal | | incision was closed with nylon sutures, and we used Vicryl sutures for the galeal | | closure of the cranial incision and then genoveva for the skin. The 2 x 2 opening in the | | flap was approximated with 2-0 nylon vertical mattress sutures. We tried to obtain a | | tensionless closure, especially in the open parts, but this was challenging given a | | significant amount of tissue was missing. Then all of the incisions were dressed | | appropriately, and the patient was awakened from anesthesia. The patient was found to | | be in her normal neurological baseline. All of the needle and sponge counts were | | correct. There were no known intraoperative complications. I was present and scrubbed | | during the entire procedure.Anesthesia: Generalized anesthesia.Drains: None.Urine | | Output And Fluids: Per anesthesia records.Estimated Blood Loss: 100 cc.Specimens: | | Multiple cultures were sent including the proximal catheter of the shunt and epidural | | pus-looking collection.ADALBERTO Capps/KATHERINED: 12/06/2017 00:30:33DT: 12/06/2017 | | 02:12:59Job #: [id number] | + + CT HEAD WO CONTRAST (12/06/2017 1:29 AM PDT) + + | Specimen | + + | | + + + + + | Narrative | Performed At | + + + | EXAM: CT HEAD WITHOUT CONTRAST HISTORY: Evaluate post-op | [facility] | | cranioplasty explant COMPARISON: CT 12/02/2017 TECHNIQUE: | RADIOLOGY VOICE | | CT of the head without intravenous contrast. FINDINGS: BRAIN: | RECOGNITION 2 | | Postsurgical changes of interval removal of cranioplasty, hardware | | | plate and screws, and peritoneal shunt. There is redemonstration of a | | | gas and fluid collection deep to the cranioplasty and superficial to | | | the dura. There is no intracranial hemorrhage. The ventricles are | | | unchanged in size. 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 | | | There is no loss of barahona-white differentiation. No herniation.. | | | Unchanged aneurysm clip. SOFT TISSUES: Unremarkable. SKULL AND | | | SKULL BASE: No fractures or destructive lesions. Mastoids and middle | | | ears are unremarkable. FACE/ORBITS: Visualized portions are | | | unremarkable. PARANASAL SINUSES: Visualized portions are | | | unremarkable. IMPRESSION: Interval postsurgical changes of | | | right frontal cranioplasty and NETWORK MANAGEMENT SPECIALIST shunt removal without acute | | | intracranial abnormality. Fluid and gas collection in the | | | cranioplasty bed is unchanged. Stable bifrontal encephalomalacia. | | | I have personally reviewed the images and, if necessary, edited | | | the report. I agree with the report as now presented. Final | | | signature: Enrrique Cramer MD 12/06/2017 7:27 AM Preliminary: | | | Essence Tompkins MD Dictation initiated: Essence Tompkins MD | | | 12/06/2017 4:45 AM | | + + + + + | Procedure Note | + + | Service Account, Radiant Res In Interface - 12/06/2017 7:29 AM PDT EXAM: CT HEAD | | WITHOUT CONTRAST HISTORY: Evaluate post-op cranioplasty explant COMPARISON: CT | | 12/02/2017 TECHNIQUE: CT of the head without intravenous contrast. FINDINGS: BRAIN: | | Postsurgical changes of interval removal of cranioplasty, hardware plate and screws, and | | peritoneal shunt. There is redemonstration of a gas and fluid collection deep to the | | cranioplasty and superficial to the dura. There is no intracranial hemorrhage. The | | ventricles are unchanged in size. 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 There | | is no loss of barahona-white differentiation. No herniation.. Unchanged aneurysm clip. SOFT | | TISSUES: Unremarkable.SKULL AND SKULL BASE: No fractures or destructive lesions. | | Mastoids and middle ears are unremarkable.FACE/ORBITS: Visualized portions are | | unremarkable.PARANASAL SINUSES: Visualized portions are unremarkable. IMPRESSION: | | Interval postsurgical changes of right frontal cranioplasty and NETWORK MANAGEMENT SPECIALIST shunt removal without | | acute intracranial abnormality. Fluid and gas collection in the cranioplasty bed is | | unchanged. Stable bifrontal encephalomalacia. I have personally reviewed the images and, | | if necessary, edited the report. I agree with the report as now presented. Final | | signature: Enrirque Cramer MD 12/06/2017 7:27 AM Preliminary: Essence Tompkins MD | | Dictation initiated: Essence Tompkins MD 12/06/2017 4:45 AM | | | |IMPRESSION: | | | |Interval postsurgical changes of right frontal cranioplasty and NETWORK MANAGEMENT SPECIALIST shunt removal without ac [place] intracranial abnormality. | | | |Fluid and gas collection in the cranioplasty bed is unchanged. | | | |Stable bifrontal encephalomalacia. | | | |I have personally reviewed the images and, if necessary, edited the report. I agree with th e report as now presented. | | | |Final signature: Enrrique Cramer MD 12/06/2017 7:27 AM | |Preliminary: Essence Tompkins MD | |Dictation initiated: Essence Tompkins MD 12/06/2017 4:45 AM | + + + +---------+ + + | Performing | Address | City/State/Zipcode | Phone Number | | Organization | | | | + +---------+ + + | [facility] | | | | | VOICE RECOGNITION 2 | | | | + +---------+ + + CAPILLARY BLOOD GLUCOSE (NO CHG), POC (12/05/2017 10:27 PM PDT) + +---------+ + + + [...] [facility] | [address] | [place], [place] | | | [facility] | [address] | [address] | | | TESTS | | | | + + + + + PROCEDURE NOTE (12/05/2017 10:14 PM PDT) + + + | Narrative | Performed At | + + + | Bari Cameron MD 12/05/2017 10:21 PM Neurosurgery Brief | | | Operative Note 12/05/2017 10:14 PM Patient: Cielo Hernadez | | | [place] Consent: Prior to the beginning of the procedure the team | | | paused to verify the patient's identity, as well as the procedure | | | to be performed and the correct side/site. All equipment required | | | was ready and available. The patient was positioned appropriately. | | | The following team members were present during the team pause: | | | Neurosurgery, Anesthesiology, [place] nursing staff. Surgeon: | | | Casey Hewitt MD Heater Engineer Helper: Bari Cameron MD Pre-op | | | Diagnosis: Cranioplasty infection with epidural abscess Post-op | | | Diagnosis: Same Procedure: Explant of right frontal | | | ventriculoperitoneal shunt and explant of synthetic cranioplasty | | | EBL: 30 mL Fluids: see anesthesia encounter Specimen: | | | epidural swabs, epidural tissue, and proximal shunt + valve to | | | microbiology Complications: none Drain: none Destination: | | | stable to PACU then floor Findings: Dense yellow adherent | | | epidural phlegmon, which was debrided; no significant involvement of | | | subgaleal space or shunt; small abdominal incision to explant | | | intra-abdominal catheter; distal catheter fractured on explant, so a | | | portion of tunneled shunt remains orphaned; 2L of | | | antibiotic-containing irrigation used; incision closed with genoveva; | | | dehiscent area could not be closed without tension and so it was | | | closed tenuously with horizontal mattress nylons. Brief Plan: | | | - Floor - HOB ad cadence - CT head - Neuro checks, will watch for shunt | | | failure - Ceftriaxone + vanc per ID recs - Follow cx - Anticipate | | | we will consult plastics surgery Bari Cameron MD PGY-5 | | | Neurological Surgery Pager [phone] | | + + + CULTURE, TISSUE (12/05/2017 9:37 PM PDT) + + + + + + | Component | Value | Ref Range | Performed | Pathologist | | | | | At | Signature | + + + + + + | CULTURE | Staphylococcus aureus | | [facility] | | | RESULT | (A) | | [facility] - | | | | | | [place] | | + + + + + + + + | Specimen | + + | Tissue - Head | | structure (body | | structure) | + + + + + | Narrative | Performed At | + + + | Culture Report: 2+ Staphylococcus aureus No anaerobic organisms | [facility] - | | isolated Gram Stain: Rare squamous epithelial cells Many | [facility] - | | polymorphonuclear cells Few Gram positive cocci | [place] | + + + + + + + + | Organism | Antibiotic | Method | Susceptibility | + + + + + | Staphylococcus | Cefazolin | SUSCEPTIBILITY-GRANT | Sensitive | | aureus | | | | + + + + + | Staphylococcus | Clindamycin | SUSCEPTIBILITY-GRANT | Sensitive | | aureus | | | | + + + + + | Staphylococcus | Erythromycin | SUSCEPTIBILITY-GRANT | Sensitive | | aureus | | | | + + + + + | Staphylococcus | Oxacillin | SUSCEPTIBILITY-GRANT | Sensitive | | aureus | | | | + + + + + | Staphylococcus | Penicillin | SUSCEPTIBILITY-GRANT | Resistant | | aureus | | | | + + + + + | Staphylococcus | Trimethoprim/Sulfa | SUSCEPTIBILITY-GRANT | Sensitive | | aureus | | | | + + + + + | Staphylococcus | Tetracycline | SUSCEPTIBILITY-GRANT | Sensitive | | aureus | | | | + + + + + | Staphylococcus | Vancomycin | SUSCEPTIBILITY-GRANT | Sensitive | | aureus | | | | + + + + + + + + + + | Performing | Address | City/State/Zipcode | Phone Number | | Organization | | | | + + + + + | [facility] | [address] | [place] [address] | | | [place] | | | | + + + + + CULTURE, WOUND ABSCESS OR ASPIRATE W/ ANAEROBE (12/05/2017 9:37 PM PDT) + + + + + + | Component | Value | Ref Range | Performed | Pathologist | | | | | At | Signature | + + + + + + | CULTURE | Staphylococcus aureus | | [facility] - | | | RESULT | (A) | | [facility] - | | | | | | [place] | | + + + + + + + + | Specimen | + + | Abscess - Head | | structure (body | | structure) | + + + + + | Narrative | Performed At | + + + | Culture Report: 2+ Staphylococcus aureus No anaerobic organisms | [facility] - | | isolated Gram Stain: Few squamous epithelial cells Many | [facility] - | | polymorphonuclear cells Many Gram positive cocci | [place] | + + + + + + + + | Organism | Antibiotic | Method | Susceptibility | + + + + + | Staphylococcus | Cefazolin | SUSCEPTIBILITY-GRANT | Sensitive | | aureus | | | | + + + + + | Staphylococcus | Clindamycin | SUSCEPTIBILITY-GRANT | Sensitive | | aureus | | | | + + + + + | Staphylococcus | Erythromycin | SUSCEPTIBILITY-GRANT | Sensitive | | aureus | | | | + + + + + | Staphylococcus | Oxacillin | SUSCEPTIBILITY-GRANT | Sensitive | | aureus | | | | + + + + + | Staphylococcus | Penicillin | SUSCEPTIBILITY-GRANT | Resistant | | aureus | | | | + + + + + | Staphylococcus | Trimethoprim/Sulfa | SUSCEPTIBILITY-GRANT | Sensitive | | aureus | | | | + + + + + | Staphylococcus | Tetracycline | SUSCEPTIBILITY-GRANT | Sensitive | | aureus | | | | + + + + + | Staphylococcus | Vancomycin | SUSCEPTIBILITY-GRANT | Sensitive | | aureus | | | | + + + + + + + + + + | Performing | Address | City/State/Zipcode | Phone Number | | Organization | | | | + + + + + | [facility] | [address] | [place] [address] | | | [place] | | | | + + + + + CULTURE, WOUND ABSCESS OR ASPIRATE W/ ANAEROBE (12/05/2017 9:35 PM PDT) + + + + + + | Component | Value | Ref Range | Performed | Pathologist | | | | | At | Signature | + + + + + + | CULTURE | Staphylococcus aureus | | [facility] - | | | RESULT | (A) | | [facility] - | | | | | | [place] | | + + + + + + + + | Specimen | + + | Abscess - Head | | structure (body | | structure) | + + + + + | Narrative | Performed At | + + + | Culture Report: 1+ Staphylococcus aureus Refer to culture | [facility] - | | collected 12/05/17 at 2137 for susceptibilities No anaerobic | [facility] - | | organisms isolated Gram Stain: Few squamous epithelial cells | [place] | | Moderate polymorphonuclear cells Few Gram positive cocci | | + + + + + + + + | Performing | Address | City/State/Zipcode | Phone Number | | Organization | | | | + + + + + | [facility] - | [address] | [place] [address] | | | [place] | | | | + + + + + CULTURE, CATH TIP BACTI (12/05/2017 9:30 PM PDT) + + + + + + | Component | Value | Ref Range | Performed | Pathologist | | | | | At | Signature | + + + + + + | CULTURE | Staphylococcus aureus | | [facility] - | | | RESULT | (A) | | [facility] - | | | | | | [place] | | + + + + + + + + | Specimen | + + | Catheter tip - Head | | structure (body | | structure) | + + + + + | Narrative | Performed At | + + + | Culture Report: > 15 colonies Staphylococcus aureus | [facility] - | | | [facility] - | | | [place] | + + + + + + + + | Organism | Antibiotic | Method | Susceptibility | + + + + + | Staphylococcus | Cefazolin | SUSCEPTIBILITY-GRANT | Sensitive | | aureus | | | | + + + + + | Staphylococcus | Clindamycin | SUSCEPTIBILITY-GRANT | Sensitive | | aureus | | | | + + + + + | Staphylococcus | Erythromycin | SUSCEPTIBILITY-GRANT | Sensitive | | aureus | | | | + + + + + | Staphylococcus | Oxacillin | SUSCEPTIBILITY-GRANT | Sensitive | | aureus | | | | + + + + + | Staphylococcus | Penicillin | SUSCEPTIBILITY-GRANT | Resistant | | aureus | | | | + + + + + | Staphylococcus | Trimethoprim/Sulfa | SUSCEPTIBILITY-GRANT | Sensitive | | aureus | | | | + + + + + | Staphylococcus | Tetracycline | SUSCEPTIBILITY-GRANT | Sensitive | | aureus | | | | + + + + + | Staphylococcus | Vancomycin | SUSCEPTIBILITY-GRANT | Sensitive | | aureus | | | | + + + + + + + + + + | Performing | Address | City/State/Zipcode | Phone Number | | Organization | | | | + + + + + | [facility] | [address] | [place] [address] | | | [place] | | | | + + + + + CAPILLARY BLOOD GLUCOSE (NO CHG), POC (12/05/2017 8:26 PM PDT) + +-------+ + + + | Component | Value | Ref Range | Performed | Pathologist | | | | | At | Signature | + +-------+ + + + | BLOOD | 68 | 60 - 99 mg/dL | [facility] [...] + | [facility] | [address] | [place], [place] | | | [facility] | [address] | [address] | | | TESTS | | | | + + + + + ANTIBODY SCREEN (12/05/2017 5:24 AM PDT) + + + + + [...] [facility] | [address] | [place] [address] | | | SERVICES, | [address] | | | | TRANSFUSION MEDICINE | | | | + + + + + ABO & RH TYPE (12/05/2017 5:24 AM PDT) + + + + + [...] | + + + + + | [facility] | [address] | [place] [address] | | | SERVICES, | [address] | | | | TRANSFUSION MEDICINE | | | | + + + + + BASIC METABOLIC SET (NA, K, CL, TCO2, BUN, CR, GLU, CA) (12/05/2017 5:24 AM PDT) + +---------+ + + + | Component | Value | Ref Range | Performed | Pathologist | | | | | At | Signature | + +---------+ + + + | GLUCOSE, | 93 | 70 - 99 mg/dL | [facility] [...] +---------+ + + + | CREATININE | 0.74 | 0.60 - 1.10 | [facility] | | | PLASMA | | mg/dL | LABORATORY | | | (LAB) | | | SERVICES, | | | | | | CORE | | + +---------+ + + + | EGFR | >60 | >60 mL/min | [facility] | | | - | | | LABORATORY | | | [facility] | | | SERVICES, | | | [...] + + + | TOTAL CO2, | 24 | 21 - 32 mmol/L | [facility] [...] + + + | ANION GAP | 9 | 4 - 11 mmol/L [...] Rapidly changing kidney | | | function - Amputees, paraplegics, or other muscle-wasting diseses | | + + + + + + + + | Performing | Address | City/State/Zipcode | Phone Number | | Organization | | | | + + + + + | [facility] | [address] | [place] [address] | | | SERVICES, CORE | [address] | | | + + + + + CBC (HEMOGRAM) ONLY (12/05/2017 5:23 AM PDT) + + + + + + | Component | Value | Ref Range | Performed | Pathologist | | | | | At | Signature | + + + + + + | WHITE CELL | 10.28 | 3.50 - 10.80 | [facility] | | | COUNT | | K/cu mm | LABORATORY | | | | | | SERVICES, | | | | | | CORE | | + + + + + + | RED CELL | 3.58 (L) | 4.00 - 5.20 | [facility] [...] + + + + | HEMATOCRIT | 33.8 (L) | 36.0 - 46.0 % | [...] + + | MCHC | 33.7 | 32.0 - 36.0 | [facility] | | | | | g/dL | LABORATORY | | | | | | SERVICES, | | | | | | CORE | | + + + + + + | RDW SD | 46.0 | 35.1 - 46.3 fL | [facility] | | | | | | LABORATORY | | | | | | SERVICES, | | | | | | CORE | | + + + + + + | PLATELET | 339 | 150 - 400 K/cu | [facility] | | | COUNT | | mm | LABORATORY | | | | | | SERVICES, | | | | | | CORE | | + + + + + + | MPV | 9.9 | 9.7 - 12.3 fL | [facility] [...] Performed At | + + + | New reference ranges for MCV, MCHC, PLT, IG% and IG# effective | [facility] | | 06/30/2017 | LABORATORY | | | [facility] | + + + + + + + + | Performing | Address | City/State/Zipcode | Phone Number | | Organization | | | | + + + + + | [facility] | [address] | [place] [address] | | | [place] [place] | [address] | | | + + + + + COAGULOPATHY PANEL (INR,APTT,FIBRINOGEN) (12/05/2017 5:23 AM PDT) + + + + + + | Component | Value | Ref Range | Performed | Pathologist | | | | | At | Signature | + + + + + + | INR | 1.04 | 0.90 - 1.20 INR | [facility] | | | | | | LABORATORY | | | | | | SERVICES, | | | | | | CORE | | + + + + + + | APTT | 33.1 | 26.0 - 36.0 | [facility] | | | | | seconds | LABORATORY | | | | | | SERVICES, | | | | | | CORE | | + + + + + + | FIBRINOGEN | 581 (H)Comment: New | 150 - 450 mg/dL | [facility] | | | LEVEL | Reference Ranges as of | | LABORATORY | | | | 06/27/2017. | | SERVICES, | | | | [...] | + + + + + | [facility] | [address] | [place] [address] | | | SERVICES, CORE | [address] | | | + + + + + CARDIOLOGY (12/05/2017 12:00 AM PDT) + + + | Narrative | Performed At | + + + | | | + + + 12 LEAD ECG (12/04/2017 5:59 PM PDT) + + + + + + | Component | Value | Ref Range | Performed | Pathologist | | | | | At | Signature | + + + + + + | VENTRICULAR | 94 | bpm | [facility] | | | RATE | | | OF | | | | | | CARDIOLOGY | | + + + + + + | ATRIAL RATE | 93 | ms | [facility] | | | | | | OF | | | | | | CARDIOLOGY | | + + + + + + | P-R | 155 | ms | [facility] | | | INTERVAL | | | OF | | | | | | CARDIOLOGY | | + + + + + + | P AXIS | 82 | deg | [facility] | | | | | | OF | | | | | | CARDIOLOGY | | + + + + + + | QRS | 100 | ms | [facility] | | | DURATION | | | OF | | | | | | CARDIOLOGY | | + + + + + + | QT | 352 | ms | [facility] | | | | | | OF | | | | | | CARDIOLOGY | | + + + + + + | QTC-BALUISITO | 440 | ms | [facility] | | | | | | OF | | | | | | CARDIOLOGY | | + + + + + + | R AXIS | -41 | deg | [facility] | | | | | | OF | | | | | | CARDIOLOGY | | + + + + + + | T AXIS | 121 | deg | [facility] | | | | | | OF | | | | | | CARDIOLOGY | | + + + + + + | ECG | Sinus rhythm | | [facility] | | | IMPRESSION | | | OF | | | | | | CARDIOLOGY | | + + + + + + | ECG | Anterolateral infarct, | | [facility] | | | IMPRESSION | age indeterminate- | | OF | | | | ABNORMAL ECG - | | CARDIOLOGY | | + + + + + + | ECG | Electronically signed | | [facility] | | | IMPRESSION | by: JOHN DURAND | | OF | | | | 12-04-2017 19:57:10 | | CARDIOLOGY | | + + [...] + | [facility] | [address] | [place], [place] | | | CARDIOLOGY | [address] | [address] | | + + + + + CULTURE, BLOOD BACTI & YEAST [facility] (12/03/2017 11:31 PM PDT) + + + + + + | Component | Value | Ref Range | Performed | Pathologist | | | | | At | Signature | + + + + + + | CULTURE | Final Report:No Bacteria | | [facility] | | | RESULT | or Yeast isolated at 5 | | LABORATORY | | | | days. | | SERVICES, | | | | | | CORE | | + + + + + + + + | Specimen | + + | Blood - Structure of | | left hand (body | | structure) | + + + + + + + | Performing | Address | City/State/Zipcode | Phone Number | | Organization | | | | + + + + + | [facility] | [address] | [place] [address] | | | SERVICES, CORE | [address] | | | + + + + + SEDIMENTATION RATE (12/03/2017 11:31 PM PDT) + +--------+ + + + | Component | Value | Ref Range | Performed | Pathologist | | | | | At | Signature | + +--------+ + + + | SEDIMENTATI | 61 (H) | 0 - 30 mm/hr | [facility] | | | ON RATE | | | LABORATORY | | | | | | SERVICES, | | | | | | CORE | | + +--------+ + + + + + | Specimen | + + | Blood - Blood | | (substance) | + + + + + | Narrative | Performed At | + + + | Conditions such as cold agglutinins, anemia, hemolysis, icterus or | [facility] | | lipemia may affect sedimentation rate. | LABORATORY | | | [facility] | + + + + + + + + | Performing | Address | City/State/Zipcode | Phone Number | | Organization | | | | + + + + + | [facility] | [address] | [place] [address] | | | SERVICES, [facility] | [address] | | | + + + + + CBC (HEMOGRAM) ONLY (12/03/2017 11:30 PM PDT) + + + + + + | Component | Value | Ref Range | Performed | Pathologist | | | | | At | Signature | + + + + + + | WHITE CELL | 12.22 (H) | 3.50 - 10.80 | [facility] | | | COUNT | | K/cu mm | LABORATORY | | | | | | SERVICES, | | | | | | CORE | | + + + + + + | RED CELL | 3.72 (L) | 4.00 - 5.20 | [facility] | | | COUNT | | M/cu mm | LABORATORY | | | | | | SERVICES, | | | | | | CORE | | + + + + + + | HEMOGLOBIN | 11.7 (L) | 12.0 - 16.0 | [facility] | | | | | g/dL | LABORATORY | | | | | | SERVICES, | | | | | | CORE | | + + + + + + | HEMATOCRIT | 34.6 (L) | 36.0 - 46.0 % | [facility] | | | | | | LABORATORY | | | | | | SERVICES, | | | | | | CORE | | + + + + + + | MCV | 93.0 | 80.0 - 100.0 fL | [facility] | | | | | | LABORATORY | | | | | | SERVICES, | | | | | | CORE | | + + + + + + | MCHC | 33.8 | 32.0 - 36.0 | [facility] | | | | | g/dL | LABORATORY | | | | | | SERVICES, | | | | | | CORE | | + + + + + + | RDW SD | 44.9 | 35.1 - 46.3 fL | [facility] | | | | | | LABORATORY | | | | | | SERVICES, | | | | | | CORE | | + + + + + + | PLATELET | 313 | 150 - 400 K/cu | [facility] | | | COUNT | | mm | LABORATORY | | | | | | SERVICES, | | | | | | CORE | | + + + + + + | MPV | 9.6 (L) | 9.7 - 12.3 fL | [facility] [...] Performed At | + + + | New reference ranges for MCV, MCHC, PLT, IG% and IG# effective | [facility] | | 06/30/2017 | LABORATORY | | | SERVICES, CORE | + + + + + + + + | Performing | Address | City/State/Zipcode | Phone Number | | Organization | | | | + + + + + | [facility] | [address] | [place] [address] | | | SERVICES, CORE | [address] | | | + + + + + C-REACTIVE PROTEIN (12/03/2017 11:30 PM PDT) + + + + + + | Component | Value | Ref Range | Performed | Pathologist | | | | | At | Signature | + + + + + + | C-REACTIVE | 96.0 (H) | <10.0 mg/L | [facility] | | [...] Performed At | + + + | New method, new reference range and new reporting units as of | [facility] | | 07/25/2013. | LABORATORY | | | [facility] | + + + + + + + + | Performing | Address | City/State/Zipcode | Phone Number | | Organization | | | | + + + + + | [facility] | [address] | [place] [address] | | | SERVICES, [place] | [address] | | | + + + + + APTT (ACT. PART. THROMBO TIME) (12/03/2017 11:30 PM PDT) + +-------+ + + + | Component | Value | Ref Range | Performed | Pathologist | | | | | At | Signature | + +-------+ + + + | APTT | 31.8 | 26.0 - 36.0 | [facility] | [...] processed >1 hour after collection. APTT Therapeutic | LABORATORY | | Range: (75 - 120) sec Heparin | [facility] | | levels of 0.35 - 0.7 U/mL | | + + + + + + + + | Performing | Address | City/State/Zipcode | Phone Number | | Organization | | | | + + + + + | [facility] | [address] | [place] [address] | | | [place] [place] | [address] | | | + + + + + INR (12/03/2017 11:30 PM PDT) + +-------+ + + + | Component | Value | Ref Range | Performed | Pathologist | | | | | At | Signature | + +-------+ + + + | INR | 1.07 | 0.90 - 1.20 INR | [facility] [...] [facility] | [address] | [place] [address] | | | SERVICES, [facility] | [address] | | | + + + + + BASIC METABOLIC SET (NA, K, CL, TCO2, BUN, CR, GLU, CA) (12/03/2017 11:30 PM PDT) + +---------+ + + + | Component | Value | Ref Range | Performed | Pathologist | | | | | At | Signature | + +---------+ + + + | GLUCOSE, | 106 (H) | 70 - 99 mg/dL | [...] +---------+ + + + | CREATININE | 0.63 | 0.60 - 1.10 | [facility] | | | PLASMA | | mg/dL | LABORATORY | | | (LAB) | | | SERVICES, | | | | | | CORE | | + +---------+ + + + | EGFR | >60 | >60 mL/min | [facility] | | | - | | | LABORATORY | | | [facility] | | | SERVICES, | | | [...] + + + | ANION GAP | 9 | 4 - 11 mmol/L [...] Rapidly changing kidney | | | function - Amputees, paraplegics, or other muscle-wasting diseses | | + + + + + + + + | Performing | Address | City/State/Zipcode | Phone Number | | Organization | | | | + + + + + | [facility] | [address] | [place] [address] | | | SERVICES, R[facility] | [address] [...] | acetaminophen (TYLENOL) tablet | Given | 12/07/19 | 650 mg | | | | 325-650 mg 325-650 mg, oral, | | 18 10:22 | | | | | EVERY 6 HOURS NEEDED, Starting | | AM PDT | | | | | 12/03/17 at 2159, Until Sat | | | | | | | 12/10/17 at 0228, mild pain, | | | | | | | multimodal pain control, fever | | | | | | | greater than 38.5 degrees C | | | | | | + +--------+ +--------+------+------+ +-------+ +--------+---+---+ | Given | 12/05/19 | 325 mg | | | | | 18 4:06 | | | | | | AM PDT | | | | +-------+ +--------+---+---+ +---+---+ | | | +---+---+ + +-------+ +-------+---+---+ | atorvastatin (LIPITOR) tablet | Given | 12/09/19 | 80 mg | | | | 80 mg 80 mg, oral, AT BEDTIME, | | 18 9:35 | | | | | First dose on 12/04/17 at | | PM PDT | | | | | 2200, Until Discontinued | | | | | | + +-------+ +-------+---+---+ +-------+ +-------+---+---+ | Given | 12/08/19 | 80 mg | | | | | 18 9:10 | | | | | | PM PDT | | | | +-------+ +-------+---+---+ | Given | 12/07/19 | 80 mg | | | | | 18 9:25 | | | | | | PM PDT | | | | +-------+ +-------+---+---+ +---+---+ | | | +---+---+ + +-------+ +---------+---+ + | bacitracin (BACIIM) injection | Given | 12/06/19 | 50,000 | | Surgical | | INTRAPROCEDURE PRN, Starting Mon | | 18 10:04 | Units | | Site | | 12/05/17 at 2204, Until Mon | | PM PDT | | | | | 18 at 7 | | | | | | + +-------+ +---------+---+ + +---+---+ | | | +---+---+ + +-------+ +---------+---+ + | bacitracin ointment | Given | 12/06/19 | 1 strip | | Surgical | | INTRAPROCEDURE PRN, Starting Mon | | 18 10:03 | | | Site | | 12/05/17 at 2203, Until Mon | | PM PDT | | | | | 12/05/17 at 7 | | | | | | + +-------+ +---------+---+ + +---+---+ | | | +---+---+ + +-------+ +-------+---+---+ | bisacodyl (DULCOLAX) | Given | 12/09/19 | 10 mg | | | | suppository 10 mg 10 mg, rectal, | | 18 11:41 | | | | | DAILY NEEDED, Starting Wed | | AM PDT | | | | | 12/07/17 at 2225, Until Sat | | | | | | | 12/10/17 at 0228, 2nd line for no | | | | | | | BM in past 2 days or if not | | | | | | | response to MIRALAX or if unable | | | | | | | to tolerate oral | | | | | | + +-------+ +-------+---+---+ +---+---+ | | | +---+---+ + +-------+ +-----+---+---+ | cefTRIAXone (ROCEPHIN) | Given | 12/10/19 | 2 g | | | | injection 2 g 2 g, intravenous, | | 18 5:27 | | | | | EVERY 24 HOURS, First dose on Clarisa | | PM PDT | | | | | 12/08/17 at 1700, Until | | | | | | | Discontinued | | | | | | + +-------+ +-----+---+---+ +-------+ +-----+---+---+ | Given | 12/09/19 | 2 g | | | | | 18 6:03 | | | | | | PM PDT | | | | +-------+ +-----+---+---+ +---+---+ | | | +---+---+ + +-------+ +-------+---+---------+ | enoxaparin (LOVENOX) injection | Given | 12/09/19 | 40 mg | | Abdomen | | 40 mg 40 mg, subcutaneous, EVERY | | 18 9:34 | | | | | EVENING, First dose on Tue | | PM PDT | | | | | 12/07/17 at 2100, Until | | | | | | | Discontinued | | | | | | + +-------+ +-------+---+---------+ +-------+ +-------+---+---------+ | Given | 12/08/19 | 40 mg | | Abdomen | | | 18 9:11 | | | | | | PM PDT | | | | +-------+ +-------+---+---------+ +---+---+ | | | +---+---+ + +-------+ +---+---+---+ | hydrocortisone 1 % cream | Given | 12/10/19 | | | | | topical, TWICE DAILY, First dose | | 18 1:50 | | | | | on 12/04/17 at 0900, Until | | PM PDT | | | | | Discontinued | | | | | | + +-------+ +---+---+---+ +-------+ +---+---+---+ | Given | 12/09/19 | | | | | | 18 9:42 | | | | | | PM PDT | | | | +-------+ +---+---+---+ | Given | 12/09/19 | | | | | | 18 8:57 | | | | | | AM PDT | | | | +-------+ +---+---+---+ +---+---+ | | | +---+---+ + + + +---------+---+ + | lidocaine (LIDODERM) 5 % patch | Applied | 12/10/19 | 1 patch | | Midline | | 1 patch 1 patch, transdermal, | Patch | 18 2:19 | | | Back | | EVERY 24 HOURS, First dose on Sat | | PM PDT | | | | | 12/03/17 at 2330, Until | | | | | | | Discontinued | | | | | | + + + +---------+---+ + + + +---------+---+ + | Applied Patch | 12/09/19 | 1 patch | | Right | | | 18 12:11 | | | Mid Back | | | PM PDT | | | | + + +---------+---+ + | Applied Patch | 12/08/19 | 1 patch | | Midline | | | 18 11:00 | | | Back | | | AM PDT | | | | + + +---------+---+ + +---+---+ | | | +---+---+ + +-------+ +------+---+---+ | lisinopril (PRINIVIL) tablet 5 | Given | 12/10/19 | 5 mg | | | | mg 5 mg, oral, DAILY, First dose | | 18 8:12 | | | | | on 12/04/17 at 1230, Until | | AM PDT | | | | | Discontinued | | | | | | + +-------+ +------+---+---+ +-------+ +------+---+---+ | Given | 12/09/19 | 5 mg | | | | | 18 8:55 | | | | | | AM PDT | | | | +-------+ +------+---+---+ | Given | 12/08/19 | 5 mg | | | | | 18 9:00 | | | | | | AM PDT | | | | +-------+ +------+---+---+ + +---+ | | | + +---+ | magnesium citrate liquid 296 mL | | | 296 mL, oral, DAILY NEEDED, | | | Starting 12/07/17 at 2225, | | | Until 12/10/17 at 0228, 3rd | | | line for no BM for 2 days if no | | | response to PRN MIRALAX and | | | bisacodyl | | + +---+ | | | + +---+ + +-------+ +-------+---+---+ | metoprolol tartrate (LOPRESSOR) | Given | 12/10/19 | 50 mg | | | | tablet 50 mg 50 mg, oral, | | 18 8:12 | | | | | DAILY, First dose on 12/04/17 | | AM PDT | | | | | at 1230, Until Discontinued | | | | | | + +-------+ +-------+---+---+ +-------+ +-------+---+---+ | Given | 12/09/19 | 50 mg | | | | | 18 8:55 | | | | | | AM PDT | | | | +-------+ +-------+---+---+ | Given | 12/08/19 | 50 mg | | | | | 18 8:59 | | | | | | AM PDT | | | | +-------+ +-------+---+---+ +---+---+ | | | +---+---+ + + + +---+ +---+ | NaCl 0.9%-KCl 20 mEq/L IV | Rate/Dos | 12/10/19 | | 75 mL/hr | | | infusion intravenous, | e Verify | 18 1:57 | | | | | CONTINUOUS, Starting 12/03/17 | | PM PDT | | | | | at 2200, Until 12/10/17 at | | | | | | | 0228, at 75 mL/hr | | | | | | + + + +---+ +---+ + + +---+ +---+ | Rate/Dose Verify | 12/10/19 | | 75 mL/hr | | | | 18 6:58 | | | | | | AM PDT | | | | + + +---+ +---+ | Rate/Dose Verify | 12/10/19 | | 75 mL/hr | | | | 18 4:46 | | | | | | AM PDT | | | | + + +---+ +---+ +---+---+ | | | +---+---+ + + + +---------+---+ + | nicotine (NICOTROL) 14 mg/24 hr | Applied | 12/10/19 | 1 patch | | Left | | 1 patch 1 patch, transdermal, | Patch | 18 8:12 | | | Shoulder | | DAILY, First dose on 12/04/17 | | AM PDT | | | | | at 0900, Until Discontinued | | | | | | + + + +---------+---+ + + + +---------+---+ + | Applied Patch | 12/09/19 | 1 patch | | Right | | | 18 8:54 | | | Shoulder | | | AM PDT | | | | + + +---------+---+ + | Applied Patch | 12/08/19 | 1 patch | | Left Arm | | | 18 8:59 | | | | | | AM PDT | | | | + + +---------+---+ + + +---+ | | | + +---+ | nicotine polacrilex (COMMIT) | | | lozenge 2 mg 2 mg, oral, EVERY 1 | | | HOUR NEEDED, Starting Sat | | | 12/03/17 at 2256, Until Sat | | | 12/10/17 at 0228, Withdrawal | | | symptoms | | + +---+ | | | + +---+ | ondansetron (ZOFRAN) injection | | | 4 mg 4 mg, intravenous, EVERY 8 | | | HOURS NEEDED, Starting Mon | | | 12/05/17 at 1732, Until Sat | | | 12/10/17 at 0228, n/v, if unable | | | to take oral form of medication | | + +---+ | | | + +---+ + +-------+ +------+---+---+ | ondansetron ODT (ZOFRAN ODT) | Given | 12/10/19 | 8 mg | | | | tablet 8 mg 8 mg, oral, EVERY 8 | | 18 7:48 | | | | | HOURS NEEDED, Starting Mon | | AM PDT | | | | | 12/05/17 at 1732, Until Sat | | | | | | | 12/10/17 at 0228, | | | | | | | nausea/vomiting, first line | | | | | | + +-------+ +------+---+---+ +-------+ +------+---+---+ | Given | 12/09/19 | 8 mg | | | | | 18 9:05 | | | | | | AM PDT | | | | +-------+ +------+---+---+ | Given | 12/08/19 | 8 mg | | | | | 18 3:52 | | | | | | PM PDT | | | | +-------+ +------+---+---+ +---+---+ | | | +---+---+ + +-------+ +------+---+---+ | polyethylene glycol (MIRALAX) | Given | 12/09/19 | 17 g | | | | packet 17 g 17 g, oral, TWICE | | 18 9:34 | | | | | DAILY, First dose on Tue12/08/17 | | PM PDT | | | | | at 0900, Until Discontinued | | | | | | + +-------+ +------+---+---+ +-------+ +------+---+---+ | Given | 12/09/19 | 17 g | | | | | 18 8:56 | | | | | | AM PDT | | | | +-------+ +------+---+---+ + +---+ | | | + +---+ | polyethylene glycol (MIRALAX) | | | packet 34 g 34 g, oral, THREE | | | TIMES DAILY NEEDED, Starting | | | 12/07/17 at 2225, Until Sat | | | 12/10/17 at 0228, 1st line - for | | | no BM for 2 days | | + +---+ | | | + +---+ + +-------+ +--------+---+---+ | prochlorperazine (COMPAZINE) | Given | 12/10/19 | 2.5 mg | | | | injection 2.5 mg 2.5 mg, | | 18 12:54 | | | | | intravenous, EVERY 6 HOURS | | AM PDT | | | | | NEEDED, Starting 12/07/17 at | | | | | | | 1046, Until 12/10/17 at 0228, | | | | | | | n/v, if unable to take oral form | | | | | | | of medication | | | | | | + +-------+ +--------+---+---+ +-------+ +--------+---+---+ | Given | 12/09/19 | 2.5 mg | | | | | 18 9:21 | | | | | | AM PDT | | | | +-------+ +--------+---+---+ | Given | 12/08/19 | 2.5 mg | | | | | 18 11:00 | | | | | | AM PDT | | | | +-------+ +--------+---+---+ +---+---+ | | | +---+---+ + +-------+ +------+---+---+ | prochlorperazine (COMPAZINE) | Given | 12/08/19 | 5 mg | | | | tablet 5 mg 5 mg, oral, EVERY 6 | | 18 10:10 | | | | | HOURS NEEDED, Starting Wed | | PM PDT | | | | | 12/07/17 at 1046, Until Sat | | | | | | | 12/10/17 at 0228, | | | | | | | nausea/vomiting, second line | | | | | | + +-------+ +------+---+---+ + +---+ | | | + +---+ | promethazine (PHENERGAN) 6.25 | | | mg in NaCl 0.9 % (NS) IV 6.25 | | | mg, intravenous, EVERY 6 HOURS | | | NEEDED, Starting 12/07/17 at | | | 2224, Until 12/10/17 at | | | 0228, n/v, if unable to take oral | | | form of medication | | + +---+ | | | + +---+ + +-------+ +---------+---+---+ | promethazine (PHENERGAN) tablet | Given | 12/08/19 | 12.5 mg | | | | 12.5 mg 12.5 mg, oral, EVERY 6 | | 18 11:59 | | | | | HOURS NEEDED, Starting Wed | | PM PDT | | | | | 12/07/17 at 2224, Until Sat | | | | | | | 12/10/17 at 0228, | | | | | | | nausea/vomiting, third line | | | | | | + +-------+ +---------+---+---+ +---+---+ | | | +---+---+ + + + +---------+---+ + | scopolamine (TRANSDERM-SCOP) 1 | Applied | 12/08/19 | 1 patch | | Left | | mg over 3 days 1 patch 1 patch, | Patch | 18 11:54 | | | Post | | transdermal, EVERY 72 HOURS, | | PM PDT | | | Auricula | | First dose on Clarisa 12/08/17 at | | | | | r | | 0015, Until Discontinued | | | | | | + + + +---------+---+ + +---+---+ | | | +---+---+ + +-------+ +---------+---+---+ | senna-docusate (SENOKOT S) | Given | 12/10/19 | 4 | | | | 8.6-50 mg 4 tablet 4 tablet, | | 18 8:12 | tablets | | | | oral, TWICE DAILY, First dose on | | AM PDT | | | | | [facility] 12/08/17 at 0900, Until | | | | | | | Discontinued | | | | | | + +-------+ +---------+---+---+ +-------+ +---------+---+---+ | Given | 12/09/19 | 4 | | | | | 18 9:34 | tablets | | | | | PM PDT | | | | +-------+ +---------+---+---+ | Given | 12/09/19 | 4 | | | | | 18 8:55 | tablets | | | | | AM PDT | | | | +-------+ +---------+---+---+ +---+---+ | | | +---+---+ + +-------+ +-------+---+---+ | spironolactone (ALDACTONE) | Given | 12/10/19 | 25 mg | | | | tablet 25 mg 25 mg, oral, DAILY, | | 18 8:12 | | | | | First dose on 12/04/17 at | | AM PDT | | | | | 1230, Until Discontinued | | | | | | + +-------+ +-------+---+---+ +-------+ +-------+---+---+ | Given | 12/09/19 | 25 mg | | | | | 18 8:55 | | | | | | AM PDT | | | | +-------+ +-------+---+---+ | Given | 12/08/19 | 25 mg | | | | | 18 9:00 | | | | | | AM PDT | | | | +-------+ +-------+---+---+ +---+---+ | | | +---+---+ documented in this encounter
--- OUTSIDE RECORDS SUMMARY | ~2019-10-16 | XMS | Encounter Summary ---
Demographics + + + | Address | [address] | | | [place] [address] | + + + | Home Phone | | + + + | Preferred Language | Unknown | + + + | Marital Status | | + + + | Lutheran Affiliation | MET | + + + | Race | White | + + + | Ethnic Group | Not or | + + + Author + + + | Author | [facility] | + + + | Organization | [facility] | + + + [...] Team Providers + +------+ + | Care Cook Pickled Meat Name | Role | Phone | + [...] | +--------+ + + + + | 10/25/ | Anesthesia | 6A Intra Op [id number] | Ovi Mann, | | | 2019 | Event | [facility] [address] | [address] | | | | | [facility] | [address] | | | | | Hospital Admitting | [facility] [place] | | | | | Desk Located on the | [id number] | | | | | 9th floor | [phone] | | | | | [place], [place] | | | | | | [address] | Dante Mcclure CRNA | | | | | | [address] | | | | | | [address] | | | | | | [place], [place] | | | | | | [address] | | | | | | [phone] | | | | | | | | +--------+ + + + + Anesthesia Record + + + + + | Procedure Name | Responsible | Anesthesia Start | Anesthesia Stop Time | | | Anesthesiologist | Time | | + + + + + | FULL THICKNESS SKIN | | | | | GRAFT RIGHT LEG TO | | | | | SCALP RECONSTRUCTION | | | | | 20X5 CM (Right ) | | | | + + + + + +----+---+ + + | Da | T | Event | Comment | | te | i | | | | | m | | | | | e | | | +----+---+ + + | 09 | 1 | | | | /0 | 5 | | | | 4/ | 0 | | | | 20 | 0 | | | | 19 | | | | +----+---+ + + | | 1 | Pt. Check | Prior to anesthesia start, pt. Identified, examined, chart | | | 5 | | reviewed, PARQ held, anesthetic plan made or approved by | | | 0 | | attending anesthesiologist. NPO status confirmed as appropriate | | | 0 | | for procedure Preoperative evaluation: unchanged | +----+---+ + + +------+ | Meds | +------+ + + + No medications | on file. | + + + + + | No agents on file. | + + + + | No blood administrations on file. | + + +--------+ + +---------+ | Type | Details | Placement | Removal | +--------+ + +---------+ | Incisi | 09/19/18; 1343; Dr. White; head- | 09/19/18 1343 by | | | on | parietal | Meera Barrera RN | | +--------+ + +---------+ documented in this encounter Social History + + + +--------+ + | Tobacco Use | Types | Packs/Day | Years | Date | | | | | Used | | + + + +--------+ + | Former Smoker | Cigarettes | 1 | 50 | Quit: 09/01/2018 | + + + +--------+ + + [...] physical, mental, or emotional | No | 09/15/2018 | | condition, do you have serious difficulty | | | | doing errands alone such as visiting the | | | | doctor? | | | + + + + + + + + | Cognitive Status | Response | Date of Assessment | + + + + | Because of a physical, mental, or emotional | No | 09/15/2018 | | condition, do you have serious difficulty | | | | concentrating, remembering, or making | | | | decisions? (5 years old or older) | | | + + + + documented as of this encounter OR Notes Anesthesia Preprocedure Evaluation - Ovi Mann MD - 10/25/2018 2:59 PM PDTFormatt ing of this note might be different from the original. Cielo Bell [id number] Allergies Allergen Reactions [place] Tar Hives Betadine [Povidone-Iodine (With Soap)] Rash Cipro [Ciprofloxacin] Nausea and Vomiting Codeine Hcl Nausea and Vomiting Sulfa (Sulfonamide Antibiotics) Erythema NPO: > midnight Last Vitals Temp: 36.2 C (97.2 F) Heart Rate: 86 Resp: 14 BP: 107/55 SpO2: 96 % Preg Status/LMP Patient Active Problem List Diagnosis Chronic obstructive pulmonary disease (HCC) HTN (hypertension) GERD (gastroesophageal reflux disease) Chronic pain Skull defect CAD in [place] artery History of non-ST elevation myocardial infarction (NSTEMI) Smoker Encounter for long-term (current) use of antibiotics Tobacco dependence Ischemic cardiomyopathy PONV (postoperative nausea and vomiting) Acute postoperative pain History of chronic respiratory failure History of cranioplasty Wound dehiscence Postoperative anemia due to acute blood loss Postoperative surgical complication involving skin associated with dermatologic procedu re, unspecified complication HLD (hyperlipidemia) Cardiomyopathy (HCC) Chronic fatigue H/O cerebral aneurysm repair SOB (shortness of breath) on exertion Past Surgical History Procedure Laterality Date Partial thyroidectomy Right Hysterectomy Bladder suspension 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 Nail Cutter shunt Tympanoplasty Right 1987 Lumpectomy of left breast 1979 Coronary stent placement 12/28/2014 status post stent placement in the mid LAD Removal of vp securities shunt Cholecystectomy Current Medication List Name Sig Last Dose ATORVASTATIN 80 MG TABLET Take 80 mg by mouth once daily. 10/24/2018 MEDICATION HELP Indications: occlusive gauze strips - dressing on head Unknown METOPROLOL SUCCINATE ER 50 MG TABLET,EXTENDED RELEASE 24 HR Take 50 mg by mouth once daily. 10/24/2018 SPIRONOLACTONE 25 MG TABLET Take 25 mg by mouth once daily. 10/24/2018 Lab Results Component Value Date RATE 66 09/19/2018 ATRIALRATE 67 09/19/2018 VA 172 09/19/2018 QRS 92 09/19/2018 QT 437 09/19/2018 QTC 462 04/12/2008 PAXIS 64 09/19/2018 RAXIS -44 09/19/2018 TAXIS 118 09/19/2018 EKGDX 04/12/2008 Normal sinus rhythm Normal ECG "I have personally interpreted this report, either alone or with a trainee." Confirmed by KAREN ROMERO ([id number]) on 12-Apr-2008 15:40:13 ANESTHESIA PLAN ASA 3 NPO Status: NPO by protocol ANESTHETIC TECHNIQUE Technique Used: General Induction: Intravenous MONITORS/LINES TO BE USED Standard POSTOP PAIN IV analgesics INFORMED CONSENT PARQ and risks/benefits of anesthetic plan discussed with Patient Additional Consent Issues: Risk/benefit of blood products discussed Dental Risk discussed with patient PATIENT'S CODE STATUS IN OR FULL - full code documented in this encounter Miscellaneous Notes PM[facility]/ANE PreOp Note - Oiv Mann MD - 10/25/2018 2:55 PM PDTROS: HPI: No issues with most recent anesthetic, doing well today states breathing well and ambulatin g > 4 mets with no SOB or CP, sats today 96% on room air (uses [place] O2 prn at home for copd), known cad with meds optimized statin and bb (I ordered metoprolol in pre op) of note has bee n of ASA for one year now per dr white request Prior Anesthetic Problems: Yes Pulmonary: Quit smoking 7 weeks ago -- states COPD improved - denies SOB or Wheezing - no shortness of breath cough chronic no stridor no wheezing no Recent Respiratory Infection Pt. Has no asthma COPD (imporived - off night O2 - quick smoking) moderate (chronic bronchodilator used) No dx of sleep apnea No risk factors for sleep apnea: Cardiovascular: Able to climb 2 flights stairs easily without chest pain, pressure or SOB Functional Capaci ty: Moderate no CHF hypertension well controlled CAD Sx cardiac stents past WA Last WA: > 1 year no valvular problems/murmurs no arrhythmia no Cardiac assist devices no pacema ker/ICD GI/Hepatic: no GI Bleed no OTHER GI GERD (resolved - is off meds) Control: well controlled no liver disease no hepatitis Renal: no renal failure no dialysis Endo: no Diabetes: Endocrine Other (thyroid removed) no Hx Corticosteroid Use Neuro/Psych: 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 has: no active bleeding no bleeding disorder No clotting disorders Hemoglobin Diso rders previous transfusion no malignancy Infectious Disease: MRSA no VRE Skin: Big open wound on top of head- surgical area open wounds AutoImmune Disorders: No autoimmune disorders Physical Exam General: Appearance: Age appropriate and No distress LOC: Alert HEENT: Normocephalic/Atraumatic Airway: Dentition: dentures-upper Mallampati: 2 Mouth Opening: > 3 cm TM Distance:> 6 cm C-Spine ROM: Normal Pulmonary: Respiratory: pulmonary exam normal Breath Sounds: breath sounds normal Cardiovascular: Rhythm: Regular Rate: Normal Abdomen: General: Normal Body Habitus: normal Musculoskeletal: Range of Motion: Normal range of motion Neuro/Psych: Affect: Normal Strength: Normal Cranial Nerves: Normal Skin: Color: skin color normal 68 y.o. F scheduled for 10/25/18- FULL THICKNESS SKIN GRAFT RIGHT LEG TO SCALP RECONSTRUCTIO N 20X5 CM [place] [facility] Ata White MD. Past medical hx is significant for HTN, CAD- STEMI, COPD. Weight 105____lbs. Height__4__ Ft.__11__Inches BMI _21.2 H&P out of date on DOS - Last anesthesia by Nimco Stanley DO on 09/19/18. Patient interview complete and pertinent updates documented under patient history. Patient received pre-op instructions per AVS and verbalized good understanding. Phone appoi ntment completed as scheduled. Transportation: Son in [place] [facility] PreOp Note - Silvia Rosado RN - 10/20/2018 1:29 PM PDTROS: HPI: Prior Anesthetic Problems: Yes PONV Pulmonary: Quit smoking 7 weeks ago -- states COPD improved - denies SOB or Wheezing - no shortness of breath cough chronic no stridor no wheezing no Recent Respiratory Infection Pt. Has no asthma COPD (imporived - off night O2 - quick smoking) No dx of sleep apnea No risk f actors for sleep apnea: Cardiovascular: Able to climb 2 flights stairs easily without chest pain, pressure or SOB Functional Capaci ty: Moderate no CHF hypertension well controlled CAD Sx cardiac stents past WA Last WA: > 1 year no valvular problems/murmurs no arrhythmia no Cardiac assist devices no pacema ker/ICD GI/Hepatic: no GI Bleed no OTHER GI GERD (resolved - is off meds) Control: well controlled no liver disease no hepatitis Renal: no renal failure no dialysis Endo: no Diabetes: Endocrine Other (thyroid removed) no Hx Corticosteroid Use Neuro/Psych: 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 has: no active bleeding no bleeding disorder No clotting disorders Hemoglobin Diso rders previous transfusion no malignancy Infectious Disease: MRSA no VRE Skin: Big open wound on top of head- surgical area open wounds AutoImmune Disorders: No autoimmune disorders 68 y.o. F scheduled for 10/25/18- FULL THICKNESS SKIN GRAFT RIGHT LEG TO SCALP RECONSTRUCTI ON 20X5 CM [place] [facility] [place] Ata White MD. Past medical hx is significant for HTN, CAD- STEMI, COPD. Weight 105____lbs. Height__4__ Ft.__11__Inches BMI _21.2 H&P out of date on DOS - Last anesthesia by Nimco Stanley DO on 09/19/18. Patient interview complete and pertinent updates documented under patient history. Patient received pre-op instructions per AVS and verbalized good understanding. Phone appoi ntment completed as scheduled. Transportation: Son in [place] documented in this encounter Plan of Treatment Not on filedocumented as of this encounter Visit Diagnoses Not on filedocumented in this encounter
--- OUTSIDE RECORDS SUMMARY | ~2019-10-16 | XMS | Encounter Summary ---
Demographics + + + | Address | [address] | | | [place] [address] | + + + | Home Phone | | + + + | Preferred Language | Unknown | + + + | Marital Status | | + + + | Rastafari Affiliation | MET | + + + [...] Team Providers + +------+ + | Care Manager Advanced Name | Role | Phone | + [...] MESH | | 2019 | | [facility] | [address] | CRANIOPLASTY; | | | | Rd [facility] | [facility] [place] | | | | | Hospital Admitting | [address] | | | | | Desk Located on the | [phone] | | | | | 9th floor | | | | | | [facility] [place] | | | | | | [address] | | | +--------+---------+ + + + [...] transferred to the rosas for continued ac [place] care and q4h flap checks. By POD [...] that I, or Nurse Practitioner or Physician Physician Practice Consultant working with me, had a face to face encounter with this patient on 08/08/2018 On behalf of Attending Physician: Ata White MD I am ordering and certify that the following services are medically necessary home health s [facility] Detention Evaluate and Treat Wound care I certify [...] Appointments 08/17/2018 11:00 AM MD NITESH Hansen [facility] Otolaryngobecka 10/02/2018 12:00 PM MD [address]ITESH Hansen [facility] Otolaryngobecka HOW TO REACH US: Tuesday- Tuesday from 8:00am to 4:30pm, call the Otolaryngology clinic at [phone]. After hours, weekends, and holidays, call the [facility] diesel dragline operator at [phone] and as k to have the ENT doctor on-call paged Future Appointments Date Time Provider Department Center 08/17/2018 11:00 AM MD NITESH Hansen [facility] Otolaryngobecka 10/02/2018 12:00 PM MD [address]ITESH Hansen [facility] Otolaryngolo Consults obtained: Pertinent imaging: Pertinent labs: [...] Shelton MD Resident Physician, PGY1 Service Pager: [phone] Valente Valdovinos MD,DD S - 08/10/2018 8:37 AM PDT Head and Neck Surgery Inpatient Daily Progress Note: Primary Care Provider: Mary Vazquez PA-C Admission Date: 08/03/2018 GLORIA ADHIKARI, [id number] Hospital Day #7 PROCEDURES: Dr. Diego 08/03/18 [...] RLB Gram Stain...........: Gram smear performed at [facility]. Culture: Final Report: No growth after 3 days. Final Report 04/29/2008 Corrected CSF Culture Source...............: Cerebrospinal Fluid RLB Gram Stain...........: Gram smear performed at [facility]. Culture: Rare Methicillin resistant Staphylococcus aureus Final ID MRSA Cefazolin R Clindamycin S Erythromycin R Oxacillin R Penicillin R Tetracycline S Trimeth/Sulfa S Vancomycin S Final Report Comment: Test performed at [facility]. 03/07/2008 Corrected CSF Culture Source...............: Cerebrospinal Fluid RLB Gram Stain...........: Gram smear performed at [facility]. Culture: Final Report: No growth after 3 days. Final Report Comment: Test performed at [facility]. 03/03/2008 Corrected CSF Culture Source...............: Cerebrospinal Fluid RLB Gram Stain...........: Gram smear performed at [facility]. Culture: Final Report: No growth after 3 days. Final Report Comment: Test performed at [facility]. 03/03/2008 Corrected Wound Culture Source...............: Skin Abscess RLB Gram Stain...........: Rare Squamous epithelial cells Rare PMN's Rare Gram positive cocci Culture: 1+ Methicillin resistant Staphylococcus aureus Final ID MRSA Cefazolin R Clindamycin S Erythromycin R Oxacillin R Penicillin R Tetracycline S Trimeth/Sulfa S Vancomycin S Final Report Resulted: 03/05/08 RLB ([facility]) [facility] [address] [place] [address] Comment: Test performed at [facility]. CULTURE RESULT Date Value Ref [...] Ok for discharge at any time from [facility] perspective. Mel Shelton MD Resident Physician, PGY1 Service Pager: [phone] oOsei Krueger MD - 08/09/2018 8:56 AM [...] RLB Gram Stain...........: Gram smear performed at [facility]. Culture: Final Report: No growth after 3 days. Final Report 04/29/2008 Corrected CSF Culture Source...............: Cerebrospinal Fluid RLB Gram Stain...........: Gram smear performed at [facility]. Culture: Rare Methicillin resistant Staphylococcus aureus Final ID MRSA Cefazolin R Clindamycin S Erythromycin R Oxacillin R Penicillin R Tetracycline S Trimeth/Sulfa S Vancomycin S Final Report Comment: Test performed at [facility]. 03/07/2008 Corrected CSF Culture Source...............: Cerebrospinal Fluid RLB Gram Stain...........: Gram smear performed at [facility]. Culture: Final Report: No growth after 3 days. Final Report Comment: Test performed at [facility]. 03/03/2008 Corrected CSF Culture Source...............: Cerebrospinal Fluid RLB Gram Stain...........: Gram smear performed at [facility]. Culture: Final Report: No growth after 3 days. Final Report Comment: Test performed at [facility]. 03/03/2008 Corrected Wound Culture Source...............: Skin Abscess RLB Gram Stain...........: Rare Squamous epithelial cells Rare PMN's Rare Gram positive cocci Culture: 1+ Methicillin resistant Staphylococcus aureus Final ID MRSA Cefazolin R Clindamycin S Erythromycin R Oxacillin R Penicillin R Tetracycline S Trimeth/Sulfa S Vancomycin S Final Report Resulted: 03/05/08 RLB ([facility]) [facility] [address] [place] [address] Comment: Test performed at [facility]. CULTURE RESULT Date Value Ref Range [...] Shelton MD Resident Physician, PGY1 Service Pager: [phone] Associated attestation - Casey Hewitt MD - [...] Vazquez PA-C Admission Date: 08/03/2018 GLORIA ADHIKARI, [id number] Hospital Day #6 PROCEDURES: Dr. Diego 08/03/18 [...] Intake/Output Summary (Last 24 hours) at 08/09/2018 4641 Last data filed at 08/09/2018 0500 Gross [...] Day:5 Author; ANSON MULLINS Attending Physician: Ata Wihte MD Interval Hx: -pt feeling better, brighter [...] RLB Gram Stain...........: Gram smear performed at [facility]. Culture: Final Report: No growth after 3 days. Final Report 04/29/2008 Corrected CSF Culture Source...............: Cerebrospinal Fluid RLB Gram Stain...........: Gram smear performed at [facility]. Culture: Rare Methicillin resistant Staphylococcus aureus Final ID MRSA Cefazolin R Clindamycin S Erythromycin R Oxacillin R Penicillin R Tetracycline S Trimeth/Sulfa S Vancomycin S Final Report Comment: Test performed at [facility]. 03/07/2008 Corrected CSF Culture Source...............: Cerebrospinal Fluid RLB Gram Stain...........: Gram smear performed at [facility]. Culture: Final Report: No growth after 3 days. Final Report Comment: Test performed at [facility]. 03/03/2008 Corrected CSF Culture Source...............: Cerebrospinal Fluid RLB Gram Stain...........: Gram smear performed at [facility]. Culture: Final Report: No growth after 3 days. Final Report Comment: Test performed at [facility]. 03/03/2008 Corrected Wound Culture Source...............: Skin Abscess RLB Gram Stain...........: Rare Squamous epithelial cells Rare PMN's Rare Gram positive cocci Culture: 1+ Methicillin resistant Staphylococcus aureus Final ID MRSA Cefazolin R Clindamycin S Erythromycin R Oxacillin R Penicillin R Tetracycline S Trimeth/Sulfa S Vancomycin S Final Report Resulted: 03/05/08 RLB ([facility]) [facility] [address] [place] [address] Comment: Test performed at [facility]. CULTURE RESULT Date Value Ref [...] cranioplasty exposure. She was admitted to neurosurgery [facility] on 07/10 and underwent explant of her cranioplasty and wound closure by ENT the follow ing day. She was discharged to home on 07/13. Ms Adhikari's surgical culture was notable f or growth of staph epidermidis. ID recommended no treatment at that time. She was seen in [facility] on 07/28 at which time her wound had dehisced after sutures removed in ENT-plastics clini c. As such, surgical plan for free flap was made. Ms Adhikari was admitted to [facility] on 08/03 f or right mesh cranioplasty, wound debridement and lat dorsi flap in coordination with Jose Bass and Christopher. PLAN: Wound care per primary team. Encourage mobilization, acute care rehab. OK for DVT prophylaxis from NSG perspective, if felt warranted. Smoking cessation. Neurosurgery to continue to follow. ANSON MULLINS [facility] [address]K [address] [address] [address] [phone] signed by ANSON Martinez at 08/08/2018 2:51 PM PDTValente Law i, MD,DDS - 08/08/2018 5:57 AM PDT Head and Neck Surgery Inpatient Daily Progress Note: Primary Care Provider: Mary Vazquez PA-C Admission Date: 08/03/2018 GLORIA ADHIKARI, [id number] Hospital Day #5 PROCEDURES: Dr. Diego 08/03/18 [...] RLB Gram Stain...........: Gram smear performed at [facility]. Culture: Final Report: No growth after 3 days. Final Report 04/29/2008 Corrected CSF Culture Source...............: Cerebrospinal Fluid RLB Gram Stain...........: Gram smear performed at [facility]. Culture: Rare Methicillin resistant Staphylococcus aureus Final ID MRSA Cefazolin R Clindamycin S Erythromycin R Oxacillin R Penicillin R Tetracycline S Trimeth/Sulfa S Vancomycin S Final Report Comment: Test performed at [facility]. 03/07/2008 Corrected CSF Culture Source...............: Cerebrospinal Fluid RLB Gram Stain...........: Gram smear performed at [facility]. Culture: Final Report: No growth after 3 days. Final Report Comment: Test performed at [facility]. 03/03/2008 Corrected CSF Culture Source...............: Cerebrospinal Fluid RLB Gram Stain...........: Gram smear performed at [facility]. Culture: Final Report: No growth after 3 days. Final Report Comment: Test performed at [facility]. 03/03/2008 Corrected Wound Culture Source...............: Skin Abscess RLB Gram Stain...........: Rare Squamous epithelial cells Rare PMN's Rare Gram positive cocci Culture: 1+ Methicillin resistant Staphylococcus aureus Final ID MRSA Cefazolin R Clindamycin S Erythromycin R Oxacillin R Penicillin R Tetracycline S Trimeth/Sulfa S Vancomycin S Final Report Resulted: 03/05/08 RLB ([facility]) [facility] [address] [place] [address] Comment: Test performed at [facility]. CULTURE RESULT Date Value Ref [...] cranioplasty exposure. She was admitted to neurosurgery [facility] on 07/10 and underwent explant of her [...] was made. Ms Adhikari was admitted to [facility] on 08/03 for r ight mesh cranioplasty, wound debridement and lat dorsi flap in coordination with Jose Diego and Christopher. PLAN: Wound care per primary team. Encourage mobilization, acute care rehab. OK for DVT prophylaxis from NSG perspective, if felt warranted. Smoking cessation. Neurosurgery to continue to follow. ANSON MULLINS [facility] [address] [place] [address] Valente Valdovinos MD,DDS - 08/07/2018 6:04 AM PDTFormatting of this note might be different from the alondraa l. Head and Neck Surgery Inpatient Daily Progress Note: Primary Care Provider: Mary Vazquez PA-C Admission Date: 08/03/2018 GLORIA ADHIKARI, [id number] Hospital Day #4 PROCEDURES: Dr. White (ENT) [...] 68 y.o. female HD#2 with CAD s/p MN, HTN, GERD, tobacco use, and a history [...] Shelton MD Resident Physician, PGY1 Service Pager: [phone] Associated attestation - Casey Hewitt MD - [...] Vazquez PA-C Admission Date: 08/03/2018 GLORIA ADHIKARI, [id number] Hospital Day #3 PROCEDURES: Dr. White (ENT) [...] Gen Surg R4 First Call ENT resident refrigeration service inspector Sabiha Wu M D - 08/05/2018 6:37 AM PDT Head and Neck Surgery Inpatient Daily Progress Note: Primary Care Provider: Mary Vazquez PA-C Admission Date: 08/03/2018 GLORIA ADHIKARI, [id number] Hospital Day #2 PROCEDURES: Dr. White (ENT) [...] forehead with dressing in place and strikethrough. [place] on neck with dried crust surrounding. Right [...] Gen Surg R4 First Call ENT resident refrigeration service inspector Israel Oden ACNP - 08/05/2018 5:41 AM PDT . Neuroscience Intensive Care Unit Team Progress Note NSICU ASSIGNED #[id number] ICU Admission Reason Most Recent Value ICU [...] discharged home the following day [facility] he presented on 05/14/2018 with enlarging right [...] She was then advised to present to [facility] ED. The patient had denied any fever, [...] Treatment Team Otolaryngology Ipt Critical Care Nsicu #[id number] Treatment Team Ipt Neurosurgery #[id number] Treatment Team Neurological Surgery Patient Lines/Drains/Airways Status [...] ICU NEURO Place of Service:- Inpatient CSN: [id number] Suggested Modifier: None Suggested CPT: TO BALL TRUING MACHINE OPERATOR Author:KOKO JACKSON [address] [phone] signed by KOKO Jackson at 08/05/2018 10:13 [...] pencil doppler with good Signal over right restorationist Incisions: c/d/i, drains with serosanguinous fluid. Soft [...] Berman MD Otolaryngology-Head & Neck Surgery PGY-2 [facility] ENT refrigeration service inspector pager [phone] Vickie Haines MD,MPH - 12:24 AM PDT [...] RLB Gram Stain...........: Gram smear performed at [facility]. Culture: Final Report: No growth [...] 68 y.o. female HD#2 with CAD s/p MN, HTN, GERD, tobacco use, and a history [...] Please contact the Neurosurgery resident on-call pager [phone] with questions or concerns. Vickie Estrada M.D., M.P.H. R2 Resident Physician Neurological Surgery Pager: [phone] signed by Vickie Estrada MD,MPH at 08/05/2018 [...] pencil doppler with good Signal over right restorationist Incisions: c/d/i, drains with serosanguinous fluid. Soft [...] Berman MD Otolaryngology-Head & Neck Surgery PGY-2 Formerly [facility] & [facility] ENT refrigeration service inspector pager [phone] Georgia Pinto MD - 07/22 9:05 AM PDT . Neuroscience Intensive Care Unit Attending Progress Note Attending Pager #[phone] ICU Admission Reason Most Recent Value ICU [...] She was discharged home the following day [facility] he presented on 05/14/2018 with enlarging [...] She was then advised to present to [facility] ED. The patient had denied any fever, [...] Treatment Team Otolaryngology Ipt Critical Care Nsicu #[id number] Treatment Team Ipt Neurosurgery #[id number] Treatment Team Neurological Surgery Code Status Code Status Full Code The Advanced Care Note for this patient can be found under the notes tab in chart review. Quality section A-Line necessity reviewed: Hiob-ug-ftew blood pressure monitoring Benavides necessity reviewed: Plan [...] rec ent imaging available. Author:GEORGIA ARREOLA MD [address] [phone] signed by Georgia Arreola MD at 08/04/2018 9:09 AM Angie Randhawa PA-C - 08/04/2018 5:59 AM PDT DOS: 08/04/2018 Head and Neck Surgery Inpatient Daily Progress Note: Primary Care Provider: Mary Vazquez PA-C Admission Date: 08/03/2018 GLORIA ADHIKARI, [id number] Hospital Day #1 PROCEDURES: Dr. White (ENT) [...] and Neck Surgery Mail Code PV01 [address] [place] [address] Pager [phone] Consult/Night/Weekend Pager: [phone] Code Status: FULL ANGIE FRENCH PA-C Otolaryngology-Head and Neck Surgery Formerly [facility] & [facility] Pager [phone] Israel Oden AC VICE PRESIDENT FOR INSTRUCTION - 08/04/2018 5:50 AM PDT . Neuroscience Intensive Care Unit Team Progress Note NSICU ASSIGNED #[id number] ICU Admission Reason Most Recent Value ICU [...] She was discharged home the following day [facility] he presented on 05/14/2018 with enlarging [...] She was then advised to present to [facility] ED. The patient had denied any fever, [...] Treatment Team Otolaryngology Ipt Critical Care Nsicu #[id number] Treatment Team Ipt Neurosurgery #[id number] Treatment Team Neurological Surgery Patient Lines/Drains/Airways Status [...] ICU NEURO Place of Service:- Inpatient CSN: [id number] Suggested Modifier: None Suggested CPT: TO BALL TRUING MACHINE OPERATOR Author:KOKO JACKSON [address] [address] [place] [address]Plizbceyuzgaoz signed by KOKO Jackson at 08/04/2018 1:55 [...] RLB Gram Stain...........: Gram smear performed at [facility]. Culture: Final Report: No growth [...] 68 y.o. female HD#1 with CAD s/p MN, HTN, GERD, tobacco use, and a history [...] Please contact the Neurosurgery resident on-call pager [phone] with questions or concerns. Vickie Estrada M.D., M.P.H. R2 Resident Physician Neurological Surgery Pager: [phone] signed by Casey Hewitt MD at 08/04/2018 [...] Please contact the Neurosurgery resident on-call pager [phone] with questions or concerns. Vickie Estrada M.D., M.P.H. R2 Resident Physician Neurological Surgery Pager: [phone] signed by Vickie Estrada MD,MPH at 08/03/2018 9:09 PM Rosario Moura MD - 08/03/2018 7:37 PM PDTBRIEF OPERATIVE NOTE Procedure Date: 08/03/2018 Author: ROSARIO SANDERSON MD Attending Physician: Aat White MD Assistants: Abel Pratt MD, Fellow [...] PTT 55-70. Initial surgical contact: ENT resident refrigeration service inspector Rosario Sanderson MD Resident, Plastic & Reconstructive Surgery Formerly [facility] & [facility] Pager [phone] documented in this en counter H&P Notes Barry Ibrahim FNP - 08/03/2018 10:59 PM PDTFormatting of this note might be different fr om the original. . Neuroscience Intensive Care Unit Team H&P Note NSICU ASSIGNED #[id number] Days in ICU Days in Hospital Documentation Date Row Name 08/03/18 1203 Day of Procedure 08/03/18 Neurosurgical Procedures Neurosurgical Neurosurgical Procedures Right mesh cranioplasty, bilateral latissimus dorsi free fla p, STSG from back ICU Admission Reason Most Recent Value ICU Admission reason neuro monitoring following mesh cranioplasty filed at 08/03/2018 120 3 Admitting Provider: MAGNOLIA DIEGO Marsha Adhikari is a 68 year old [...] She was discharged home the following day [facility] he presented on 05/14/2018 with enlarging [...] She was then advised to present to [facility] ED. The patient had denied any fever, [...] Abnormal LFTs (liver function tests) CAD in [place] artery s/p NSTEMI 12/27/2014; status post stent [...] Bladder suspension 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 Knife Edger shunt Tympanoplasty Right 1987 Lumpectomy of left breast 1979 Coronary stent placement 12/28/2014 status post stent placement in the mid LAD Removal of evp marketing shunt Cholecystectomy Allergies Allergen Reactions [place] Tar Hives Betadine [Povidone-Iodine (With Soap)] Rash [...] file Gets together: Not on file Attends faith service: Not on file Active member of [...] Treatment Team Otolaryngology Ipt Critical Care Nsicu #[id number] Treatment Team Ipt Neurosurgery #[id number] Treatment Team Neurological Surgery Patient Lines/Drains/Airways Status [...] e. Date of Service: 08/03/2018 GRANT Fuentes [address] [phone] signed by GRANT Fuentes at 08/03/2018 11:20 PM Star Ievy MD - 08/03/2018 10:12 PM PDTFormatting of this note might be different f rom the original. . Neuroscience Intensive Care Unit Attending H&P Note Attending Pager #[phone] ICU Admission Reason Most Recent Value ICU [...] She was discharged home the following day [facility] he presented on 05/14/2018 with enlarging [...] She was then advised to present to [facility] ED. The patient had denied any fever, [...] Neuro checks; at risk for CSF leak, MN, UTI, acute blood loss anemia, DVT -Strict [...] Treatment Team Otolaryngology Ipt Critical Care Nsicu #[id number] Treatment Team Ipt Neurosurgery #[id number] Treatment Team Neurological Surgery Code Status Code Status Full Code The Advanced Care Note for this patient can be found under the notes tab in chart review. Quality section A-Line necessity reviewed: Lpuj-bk-pajh blood pressure monitoring Benavides necessity reviewed: Plan to DC today I have spent a total of 43 minutes in the direct care and management of this patient indepe ndent of any time spent teaching or performing any separately billable procedures. I reviewe d the documented findings, all data and the recent imaging available. Date of Service: 08/03/2018 Author:STAR VARELA MD [address] [phone] signed by Star Varela MD at 08/03/2018 [...] with cranioplasty exposure. She was admitted to pr urosurgery service on 07/10 and underwent explant [...] morning by ENT and will see Dr Chadnler from [place] after this appointment. Ms Adhikari reports that [...] daily. Facility-Administered Medications: None Allergies Allergen Reactions [place] Tar Hives Betadine [Povidone-Iodine (With Soap)] Rash Cipro [Ciprofloxacin] Nausea and Vomiting Codeine Hcl Nausea and Vomiting Sulfa (Sulfonamide Antibiotics) Erythema Past Medical History: Diagnosis Date Abnormal LFTs (liver function tests) CAD in [place] artery Chronic pain COPD Essential hypertension GERD [...] to be redone. Ata White MD MW/MODL /[id number] signed by Ata White MD at 08/14/2018 12:15 PM PDTWax , MD Ata - 08/11/2018 12:07 PM PDTAssociated Order(s): OPERATION RECORDDate of Service: 0 08/03/2018 Attending Surgeon:Ata White MD Physician Practice Consultant(s):Dr. Garcia Preoperative Diagnosis: Cranioplasty infection. Postoperative Diagnosis: [...] and the flap was sent up to [facility] d and neck region. The back was closed after elevating flap so that we could be tension-free. We excised the full-thickness skin graft donor site and closed the back with 2-0 Vicryl pops, 5-0 Caprosyn, 2 flat 10 Ashutosh-Story drains were [...] The vein was measured and a 4.0 staff veterinarian was utilized . We put the 2 [...] till the end of the case. A [place] Doppler was placed and there was excellent [...] end of the procedure. MD CHANDRIKA Hansen/NGUYEN /[id number] signed by Ata White MD at 08/11/2018 3:14 PM PDTDoMagnolia malik MD - 08/03/2018 6:27 PM PDTAssociated Order(s): OPERATION RECORDDate of Service: 08/03/2018 Attending Surgeon: MD Magnolia Hansen MD Physician Practice Consultant(s): MD Abel Clarke MD David J Mazur [...] and loose hardware. She underwent a synthetic aircraft technician nioplasty at that time. Unfortunately, she then [...] to the operating room theater on a [facility]. She was given to the anesth esia [...] and anterior to the bone edges. The [place] 1 was used to dissect the scar tissue and periosteum from the inner yurok of the bony defect . Tenotomies and [...] the case. MD Magnolia Benz MD DJM/NGUYEN /[id number] I, Dr. Magnolia Diego certify that I was present for and participated in the critical parts of the procedure. I further certify that I was the principal surgeon for this procedure. MAGNOLIA DIEGO MD [facility] [address]C [address]SI [address] [id number] documented in this encou nter Consult Notes [...] function declines significantly Please page clinical pharmacist ([phone]) or call central inpatient pharmacy ([phone]) with qu estions. Actual body weight: Weight: [...] pt. [facility] to [facility] in [place]. andoff - Sachin Bradley RN - 08/11/2018 2:11 AM PDTAnson campbell Handoff [facility]URSE HANDOFF[facility] [...] RN - 08/10/2018 7:06 PM PDTNursing Handoff [facility]SE HAND[facility] [...] RN - 08/10/2018 12:15 AM PDTNursing Handoff [facility]SE HAND[facility] [...] N - 08/09/2018 3:14 AM PDTNursing Handoff [facility]SE HAND[facility] [...] RN - 08/08/2018 6:45 PM PDTNursing Handoff [facility]SE [facility] [...] PDTNursing Handoff Patient Daily Goal: Sleep (08/05/18 8217) Patient Specific Preferences: family at bedside/TV on/cell phone within reach at all times (08/05/18 1053) [facility] IP NURSE HANDOFF: [facility] course events: Per previous handoff "Admit: 08/03 Rt aircraft technician ni and Rt latissimus dorsi free flap [...] RN - 08/07/2018 1:34 PM PDTNursing Handoff [facility]SE [facility] [...] within reach at all times (08/05/18 1053) [facility]URSE HANDOFF[facility] [...] forehead with dressing in place and strikethrough. Niota on neck removed 08/06 in AM, small [...] within reach at all times (08/05/18 1053) [facility]URSE HANDOFF: [facility] [...] forehead with dressing in place and strikethrough. Niota on neck with dried crust surrounding. Right [...] exercises Outcome: Goal met Physical Therapy Evaluation [id number] GLORIA [facility] Day: 3 Date of : 1950 Start [...] Abnormal LFTs (liver function tests) CAD in [place] artery Chronic pain COPD Essential hypertension GERD (gastroesophageal reflux disease) Goiter Hemorrhagic stroke ([facility]) 2007 MRSA (methicillin resistant staph aureus) culture positive Otitis media PONV (postoperative nausea and vomiting) Subarachnoid hemorrhage due to ruptured aneurysm ([facility]) 2007 Tobacco dependence Past Surgical History: Procedure Laterality Date BLADDER SUSPENSION CHOLECYSTECTOMY CORONARY STENT PLACEMENT 12/28/2014 HYSTERECTOMY LUMPECTOMY OF LEFT BREAST 1979 PARTIAL THYROIDECTOMY Right REMOVAL OF SOCIAL PROFESSIONALS SHUNT REPAIR OF ANEURYSM BY CLIPPING TYMPANOPLASTY Right 1987 SOCIAL PROFESSIONALS SHUNT Subjective:Patient agreed to work with PT [...] grocery shopping, hobbies- loves to go visit [employer], catching up with friends,COPD- uses oxygen at night- patient not sure about level of oxygen at this time Equipment at home: single point cane, electric wheelchair, three wheeled and four wheeled walker Patient / Family Goal: walk Communication/Barriers: Kittitian/none Pain: none endorsed Vital Signs: stable pre [...] rehabilitation: assessment and treatme nt (5th ed.). [place]: [facility]. p.254 Mobility & Transfers: Supine to [...] gait speed progressed to independent Outcome Measure: [facility] BASIC MOBILITY Difficulty turning over in [...] A Little - Minimal/Contact Guard Assist/Superv ision [facility] Basic Mobility Total Score 21 Interpretation of [facility] Short Form - Basic Mobility: CMS [...] PDTNursing Handoff Patient Daily Goal: Sleep (08/05/18 3843) Patient Specific Preferences: family at bedside/TV on/cell phone within reach at all times (08/05/18 1053) [facility]URSE HANDOFF[facility] [...] within reach at all times (08/05/18 1053) [facility] IP [facility]URSE HANDOFF: [facility] [...] forehead with dressing in place and strikethrough. Niota on neck with dried crust surrounding. Right back Donor site: Dressing intact. LAZARA x 2 drains on bulb suction (per Dr Byron Johnson/EnT note this am 08/05/18) SAFETY Patient/Family Target: Gloria will remain safe while avoiding accidental removal lines/tubes Progress to Target: No Change As evidenced by: Gloria can be impulsive/ she prefers to be [...] RN - 08/04/2018 6:37 PM PDTNursing Handoff [facility] IP NURSE HANDOFF: [facility] [...] PM PDTPlan of Care - Mao Correa, [facility] - 08/03/2018 11:07 PM PDTFormatting of this [...] Abnormal LFTs (liver function tests) CAD in [place] artery s/p NSTEMI 12/27/2014; status post stent [...] Bladder suspension 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 Knife Edger shunt Tympanoplasty Right 1987 Lumpectomy of left breast 1978 Coronary stent placement 12/28/2014 status post stent placement in the mid LAD Removal of evp marketing shunt Cholecystectomy Patient Lines/Drains/Airways Status Active Lines, Drains and Airways Name: Placement date: Placement time: Site: Days: Drain LAZARA Right Lateral flank 1 08/03/18 1527 flank less than 1 Drain LAZARA Right Medial flank 2 08/03/18 1527 flank less than 1 Drain Niota Right head 3 08/03/18 1914 head less [...] clear at sutures R side of face. Niota drain at right neck. 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 Garcia | | Preoperative Diagnosis: Cranioplasty infection.Postoperative [...] The vein was measured and a 4.0 staff veterinarian was utilized. We put the 2 ends [...] till the end of the case. A KeyVive Doppler was placed and there was excellent [...] MELI White/KATHERINED: 08/11/2018 14:18:44DT: 08/11/2018 14:50:31Job #: [id number] | + + CBC (HEMOGRAM) ONLY (08/10/2018 [...] | + + + + + | [facility] | [address] | [place] [address] | | | SERVICES, CORE | RAMSES [...] | | | LABORATORY | | | SLOVENIAN | | | SERVICES, | | | [...] MDRD equation recommended by the National | VASU | | Kidney Disease Education Program. Estimated [...] | + + + + + | [facility] | [address] | [place] [address] | | | SERVICES, CORE | RAMSES [...] (H) | 60 - 99 mg/dL | [facility] - | | | GLUCOSE, | | [...] [facility] | [address] | [place], [place] | | | MISTY POINT OF CARE | [address] | [address] | | | TESTS | | | [...] + + | [facility] | [address] [facility] [facility] | [place] [address] | | | SERVICES, CORE | PARK [...] | | | LABORATORY | | | SLOVENIAN | | | SERVICES, | | | [...] MDRD equation recommended by the National | [facility] | | Kidney Disease Education Program. Estimated [...] | + + + + + | [facility] | [address] | [place] [address] | | | JOHNSON, RYAN | RAMSES [...] (H) | 60 - 99 mg/dL | [facility] - | | | GLUCOSE, | | [...] [facility] | [address] | [place], [place] | | | RAÚL JAY OF OL[place] | [facility] | [address] | | | TESTS | | | [...] [facility] | [address] | [place], [place] | | | MISTY POINT OF CARE | [address] | [address] | | | TESTS | | | [...] [facility] | [address] | [place], [place] | | | MISTY AIKEN OF [facility] | [facility] | [address] | | | TESTS | | | [...] | + + + + + | [facility] | [address] | [place] [address] | | | RYAN ORNELAS | RAMSES [...] | + + + + + | [facility] | [address] | [place] [address] | | | RYAN ORNELAS | PARK [...] | | | LABORATORY | | | SLOVENIAN | | | SERVICES, | | | [...] MDRD equation recommended by the National | VASU | | Kidney Disease Education Program. Estimated [...] | + + + + + | [facility] | [address] | [place] [address] | | | SERVICES, CORE | RAMSES [...] | + + + + + | [facility] | [address] | [place] [address] | | | SERVICES, CORE | RAMSES [...] [facility] | [address] | [place], [place] | | | RA[place]L JAY OF CARE | [address] | [address] | | | TESTS | | | [...] | + + + + + | [facility] | [address] | [place] [address] | | | RYAN ORNELAS | RAMSES [...] [facility] | [address] | [place], [place] | | | MISTY POINT OF CARE | [address] | [address] | | | TESTS | | | [...] | + + + + + | [facility] | [address] | [place] [address] | | | SERVICES, CORE | RAMSES [...] (H) | 60 - 99 mg/dL | [facility] - | | | GLUCOSE, | | [...] [facility] | [address] | [place], [place] | | | RA[facility]L JAY OF CARE | [address] | [address] | | | TESTS | | | [...] [facility] | [address] | [place] [address] | | | SERVICES, CORE | RAMSES [...] [facility] | [address] | [place] [address] | | | SERVICES, CORE | PARK [...] | | | LABORATORY | | | SLOVENIAN | | | SERVICES, | | | [...] MDRD equation recommended by the National | [facility] | | Kidney Disease Education Program. Estimated [...] | + + + + + | [facility] | [address] | [place] [address] | | | RYAN ORNELAS | RAMSES [...] (H) | 60 - 99 mg/dL | [facility] - | | | GLUCOSE, | | [...] ER[facility] | [address] | [place], [place] | | | RAÚL JAY OF [facility] | [address] | [address] | | | TESTS | | | [...] | + + + + + | [facility] | [address] [facility] [facility] | [place] [address] | | | SERVICES, CORE | PARK [...] [facility] | [address] | [place], [place] | | | RAÚL JAY OF [place] | [facility] | [address] | | | TESTS | | | [...] | + + + + + | [facility] | [address] | [place] [address] | | | RYAN ORNELAS | RAMSES [...] [facility] | [address] | [place], [place] | | | MISTY POINT OF CARE | [facility] | [address] | | | TESTS | | | [...] [facility] | [address] | [place] [address] | | | SERVICES, CORE | PARK [...] [facility] | [address] | [place] [address] | | | SERVICES, | [address] [...] [facility] | [address] | [place] [address] | | | SERVICES, | [address] [...] + + + + | PRODUCT | [id number] | | [facility] | | | UNIT [...] + + + + | EXPIRATION | [id number] | | [facility] | | | DATE [...] + + + + | BLOOD | [id number] | | [facility] | | | PRODUCT [...] [facility] | [address] | [place] [address] | | | SERVICES, | [address] [...] + + + + | [facility] | [address] | [place], [place] | | | RAÚL JAY OF [facility] | [facility] | [address] | | | TESTS | | | [...] [facility] | [address] | [place] [address] | | | SERVICES, CORE | PARK [...] [facility] | [address] | [place] [address] | | | SERVICES, CORE | PARK [...] | | | LABORATORY | | | SLOVENIAN | | | SERVICES, | | | [...] | + + + + + | [facility] | [address] | [place] [address] | | | JOHNSON, RYAN | RAMSES [...] - [facility] | [address] | [place], [place] | | | MISYT POINT OF [facility] | [address] | [address] | | | TESTS | | | [...] | + + + + + | [facility] | [address] | [place] [address] | | | SERVICES, CORE | RAMSES [...] (H) | 60 - 99 mg/dL | [facility] - | | | GLUCOSE, | | [...] + + + | [facility] | [address] | [place], [place] | | | RAÚL JAY OF [facility] | [address] | [address] | | | TESTS | | | [...] | + + + + + | [facility] | [address] | [place] [address] | | | SERVICES, CORE | RAMSES [...] [facility] | [address] | [place], [place] | | | RAÚL JAY OF CARE | [address] | [address] | | | TESTS | | | [...] + + + + + | [facility] | [address] | [place] [address] | | | RYAN ORNELAS | RAMSES [...] | + + + + + | [facility] | [address] | [place] [address] | | | SERVICES, CORE | RAMSES [...] | | | LABORATORY | | | SLOVENIAN | | | SERVICES, | | | [...] + + | [facility] | [address] [facility] [facility] | [place] [address] | | | SERVICES, CORE | RAMSES [...] | + + + + + | [facility] | [address] | [place] [address] | | | SERVICES, CORE | RAMSES [...] | + + + + + | [facility] | [address] | [place] [address] | | | SERVICES, CORE | RAMSES [...] (H) | 60 - 99 mg/dL | [facility] - | | | GLUCOSE, | | [...] [facility] | [address] | [place], [place] | | | MISTY POINT OF CARE | [address] | [address] | | | TESTS | | | [...] | + + + + + | [facility] | [address] | [place] [address] | | | SERVICES, RYAN | RAMSES [...] - [facility] | [address] | [place], [place] | | | MISTY POINT OF CARE | [facility] | [address] | | | TESTS | | | [...] | + + + + + | [facility] | [address] [facility] [facility] | [place] [address] | | | SERVICES, RYAN | RAMSES [...] + + + + | PRODUCT | [id number] | | [facility] | | | UNIT [...] + + + + | EXPIRATION | [id number] | | [facility] | | | DATE [...] + + + + | BLOOD | [id number] | | [facility] | | | PRODUCT [...] [facility] | [address] | [place] [address] | | | SERVICES, | [address] [...] | + + + + + | [facility] | [address] | [place] [address] | | | SERVICES, CORE | RAMSES [...] [facility] | [address] | [place], [place] | | | RA[facility]L JAY OF CARE | [address] | [address] | | | TESTS | | | [...] | + + + + + | [facility] | [address] | [place] [address] | | | RYAN ORNELAS | RAMSES [...] [facility] | [address] | [place], [place] | | | RA[facility]L JAY OF CARE | [address] | [address] | | | TESTS | | | [...] [facility] | [address] | [place], [place] | | | RA[facility]L JAY OF CARE | [address] | [address] | | | TESTS | | | [...] [facility] | [address] | [place], [place] | | | RA[facility]L JAY OF CARE | [address] | [address] | | | TESTS | | | [...] [facility] | [address] | [place], [place] | | | [place] AIKEN OF [facility] | [facility] | [address] | | | TESTS | | | [...] [facility] | [address] | [place] [address] | | | JOHNSON, CORE | PARK [...] - 120) sec Heparin levels of | [facility], CORE | | 0.35 - 0.7 U/mL | | + + + + + + + + | Performing | Address | City/State/Zipcode | Phone Number | | Organization | | | | + + + + + | [facility] | [address] | [place] [address] | | | RYAN ORNELAS | RAMSES [...] [facility] | [address] | [place], [place] | | | RAÚL JAY OF [place] | [facility] | [address] | | | TESTS | | | [...] [facility] | [address] | [place], [place] | | | RA[facility]L JAY OF CARE | [address] | [address] | | | TESTS | | | [...] | + + + + + | [facility] | [address] | [place] [address] | | | SERVICES, CORE | PARK [...] | | | LABORATORY | | | SLOVENIAN | | | SERVICES, | | | [...] MDRD equation recommended by the National | [facility] | | Kidney Disease Education Program. Estimated [...] [facility] | [address] | [place] [address] | | | SERVICES, CORE | PARK [...] | + + + + + | [facility] | [address] | [place] [address] | | | SERVICES, CORE | RAMSES [...] (H) | 60 - 99 mg/dL | [facility] - | | | GLUCOSE, | | [...] + + + | [facility] | [address] | [place], [place] | | | RAÚL JAY OF [facility] | [address] | [address] | | | TESTS | | | [...] [facility] | [address] | [place], [place] | | | RAÚL JAY OF [place] | [address] | [address] | | | TESTS | | | [...] | + + + + + | [facility] | [address] | [place] [address] | | | SERVICES, CORE | RAMSES [...] [facility] | [address] | [place], [place] | | | RAÚL JAY OF [place] | [facility] | [address] | | | TESTS | | | [...] | + + + + + | [facility] | [address] | [place] [address] | | | SERVICES, CORE | RAMSES [...] [facility] | [address] | [place], [place] | | | RA[facility]L JAY OF CARE | [address] | [address] | | | TESTS | | | | + + + + + OPERATION RECORD (08/03/2018 6:27 PM PDT) + + | Procedure Note | + + | Magnolia Diego MD - 08/03/2018 6:27 PM PDT Date of Service: 08/03/2018 Attending | | Surgeon: MD Magnolia Hansen MD Physician Practice Consultant(s): Rosario Pettit | | MD Abel Sanderson [...] operating room | | theater on a [facility]. She was given to the anesthesia staff, [...] to the bone | | edges. The [place] 1 was used to dissect the scar tissue and periosteum from the inner | | yurok of the bony defect. Tenotomies and blunt [...] | | 08/03/2018 15:19:29DT: 08/03/2018 15:55:39Job #: [id number], Dr. Magnolia Diego | | certify that I was present for and participated in the critical parts of the procedure. | | I further certify that I was the principal surgeon for this procedure.MAGNOLIA DIEGO, | | [facility] Pearson [id number], [place] [id number] | |Magnolia Diego MD | |DJM/MODL | | | | | | /[id number] | | | |I, Dr. Magnolia Diego certify that I was present for and participated in the critical parts of the procedure. I further certify that I was the principal surgeon for this procedure. | | | | | | | |MAGNOLIA DIEGO MD | |[facility] | |[address] | |[id number] | |[place] [address] | |[phone] | + + ANTIBODY SCREEN (08/03/2018 10:50 [...] [facility] | [address] | [place] [address] | | | SERVICES, | [address] [...] | + + + + + | [facility] | [address] | [place] [address] | | | SERVICES, | [address] [...] [facility] | [address] | [place], [place] | | | RA[facility]L JAY OF CARE | [address] | [address] | | | TESTS | | | [...] PDT | | | | | Starting [facility] 08/03/18 at 1450, | | | [...]
--- OUTSIDE RECORDS SUMMARY | ~2019-10-16 | XMS | Encounter Summary ---
Demographics + + + | Address | [address] | | | [place] [address] | + + + | Home Phone | | + + + | Preferred Language | Unknown | + + + | Marital Status | | + + + | Muslim Affiliation | MET | + + + | Race | White | + + + | Ethnic Group | Not or | + + + Author + + + | Author | [facility] | + + + | Organization | [facility] | + + + | Address [...] Team Providers + +------+ + | Care Behavioral Health Specialist Name | Role | Phone | [...] | | | head | Rd | [place], [place] | | | | | Infection | [place] | [address] | | | | | and | [address] | Phone: | | | | | inflammatory | Phone: | [phone] | | | | | reaction | [phone] | Fax: | | | | | due to other | Fax: | [phone] | | | | | internal | [phone] | | | | | | prosthetic [...] | | | | | | OR REPLACE | | | | | | | SKULL | | | | | | | PLATE/FLAP | | | | | | | OR REPAIR | | | | | | | SKULL | | | | | | | DEFECT,UP TO | | | | | | | 5CM OR | | | | | | [...] defect (Primary Dx) | | | | [facility] | [facility], | | | | | | [facility] | | | | | | floor [place], [place] | | | | | | [address] | | | | | | [phone] | | | +--------+---------+ + + + [...] the original. NEUROSURGERY FOLLOW UP CLINIC VISIT [facility] Attending: Paramjit Huber [...]
--- OUTSIDE RECORDS SUMMARY | ~2019-10-16 | XMS | Encounter Summary ---
Demographics + + + | Address | [address] | | | [place] [address] | + + + | Home Phone | | + + + | Preferred Language | Unknown | + + + | Marital Status | | + + + | Orthodoxy Affiliation | MET | + + + | Race | White | + + + | Ethnic Group | Not or | + + + Author + + + | Author | [facility] | + + + | Organization | [facility] | + + + | Address [...] Team Providers + +------+ + | Care Guidance Counselor Name | Role | Phone | + +------+ + | No Pcp Per Patient | PCP | Unavailable | + +------+ + Reason for Visit + + + | Reason | Comments | + + + | Pre-operative | | | evaluation | | + + + Encounter Details +--------+---------+ + + + | Date | Type | Department | Care Team | Description | +--------+---------+ + + + | 02/24/ | Office | Preoperative | Mable Lee, | Preoperative | | 2019 | Visit | Medicine Clinic at | MD | examination (Primary | | | | [facility] 4th Floor Day | | Dx); Osteomyelitis, | | | | Stay [address] | | unspecified site, | | | | [address] | | unspecified type | | | | Mailcode: [id number] | | ([facility]); Essential | | | | [facility] | | hypertension; | | | | [address] [place], [place] | | Anemia, unspecified | | | | [address] | | type; Tobacco | | | | [phone] | | dependence | +--------+---------+ + + + Anesthesia Record + + + + + | Procedure Name | Responsible | Anesthesia Start | Anesthesia Stop Time | | | Anesthesiologist | Time | | + + + + + | PREANESTHETIC | | | | | EVALUATION | | | | + + + + + + + | No events on file. | + + +------+ | Meds | +------+ + + + No medications | on file. | + + + + + | No agents on file. | + + + + | No blood administrations on file. | + + + + | No LDAs on file. | + + documented in this encounter Social [...] + + + | Blood Pressure | 109/60 | 02/24/2018 3:11 PM | | | | | PST | | + + + + + | Pulse | 75 | 02/24/2018 3:11 PM | | | | | PST | | + + + + + | Temperature | 36.3 C (97.3 F) | 02/24/2018 3:11 PM | | | | | PST | | + + + + + | Respiratory Rate | 12 | 02/24/2018 3:11 PM | | | | | PST | | + + + + + | Oxygen Saturation | 94% | 02/24/2018 3:11 PM | | | | | PST | | + + + + + | Inhaled Oxygen | - | - | | | Concentration | | | | + + + + + | Weight | 51.3 kg (113 lb) | 02/24/2018 3:11 PM | | | | | PST | | + + + + + | Height | 149.9 cm (4' 11") | 02/24/2018 3:11 PM | neck 36cm | | | | PST | | + + + + + | Body Mass Index | 22.82 | 02/24/2018 3:11 PM | | | | | PST [...] + + documented as of this encounter Patient Instructions Patient Instructions Mable Lee MD - 02/24/2018 3:00 PM PST PREOPERATIVE INSTRUCTIONS Empty stomach before surgery NOTHING to eat or drink after midnight the night before surgery. This includes water, coffee, candy, mints, gum. Medications Instructions Use your nebulizer 4 times daily On the morning of surgery TAKE the following medications with a sip of water: Metoprolol Atorvastatin On the morning of surgery DO NOT TAKE the following medications: Lisinopril spironolactone Other medications not specifically mentioned are at your discretion as to taking or not taking on the morning of surgery. Do not take any Aspirin, fish oil supplements, vitamin E or non-steroidal anti-inflammat ory (NSAIDs i.e. Advil, Aleve, Ibuprofen) or herbal supplements 7 days prior to your surgery . These drugs may interfere with normal blood clotting and may cause excessive bleeding and bruising during or after the surgery. If you need a pain medication for general purposes, use Tylenol as directed. OK to take it even on the morning of surgery, if needed. If you are in doubt about any medications that you are taking, please contact our office . Other Important Guidelines ? Do not shave the surgical area Do not smoke, drink alcohol or use recreational drugs for 24 hours before your surgery Watch for any change in your health condition. Let your surgeon know right away if you do not feel well. ? Do not wear makeup, perfume, lotions, deodorant, powder or hairspray. Do not wear any jewelry to the hospital. Wear loose, comfortable clothing. Leave all your valuables at home. Allow enough travel time so you re not late for your check in for surgery. Please remember to brush your teeth the night before and the morning of your procedure. Smoking You should not smoke for 4 weeks before the procedure and 2 weeks after the procedure. If you are a smoker, please make sure to discuss a plan for managing nicotine withdrawal while in the hospital. Smoking increases the risk of post operative complications because it causes narrowing of b lood vessels, which leads to decreased blood flow to the tissue and therefore poor healing. If you have 3-4 weeks before your planned procedure and wish to quit, we will help you with resources and support. Preventing post op complications while you are in the hospital Use an incentive spirometer or peep breathe to keep your lungs working properly an d to help prevent respiratory complications. It helps you take long, deep breaths. Use it at least once every hour while you are awake. Leg and feet exercises will maintain good circulation and help prevent blood clots in yo ur legs. Sometimes your doctor will order sequential air compression stockings. Compressed air helps the circulation in your legs. Walking and moving will help stimulate normal circulation and deep breathing. After you r surgery, your nurse may ask you to sit, stand or walk. Surgery check-in location: Admitting - [facility], ninth floor [facility] Surgery Check in Time: The Preoperative Medicine Clinic is not in the position to give you accurate information regarding surgical check in time. We refer you back to your surgical office regarding this important information. Going Home Your surgical team will decide when you are medically ready to go home. If you stayed in the hospital after surgery, please arrange for your ride to come for yo u around 9AM on the day your doctor says you can go home. If you have questions or concerns after you go home, call your doctor s office. If it is after office hours, call the [facility] concrete buster operator at [phone] and ask them to page him or h er. documented in this encounter Progress Notes Mable Lee MD - 02/24/2018 3:00 PM PSTFormatting of this note might be different fr om the original. PREOPERATIVE CONSULT NOTE Author: Mable Lee MD Referring Physician: Dr. Huber Primary Care Provider: No Pcp Per PATIENT Reason for Consult: Preoperative evaluation and risk assessment Proposed Procedure/Date: Cranioplasty to repair acquired skull defect TBD HISTORY OF PRESENT ILLNESS: Cielo Bell is a 68 y.o. female here for preoperati ve evaluation of medical problems in anticipation of the above procedure. Pt has dx of oste omyelitis of the skull. Pt had cranioplasty after ruptured cranial aneurysm in 2007. The r epair was made with synthetic material. In November she was transferred to [facility] for right-si ded wound dehiscence and infection with epidural abscess due to Staph Aureus. She also unde rwent explantation of her MOVING CONSULTANT shunt. She had a CT scan today to help design the structure of the next cranioplasty. The design of the prosthesis might take some time. She will keep in touch with neurosurgery to determi ne when the surgery can be scheduled. Currently she feels well except a bit anxious about having surgery. Pertinent medical problems discussed during this visit: CAD -- s/p revascularization with coronary stent; pt is on optimal medical mgmt with ASA , statin and beta mukul. HTN -- well controlled Tobacco dependence -- ongoing. I've recommended that she try reading the book "The Easy Way to Stop Smoking for Women" by Blanco Solis (found on atokore). COPD -- pt has chronic cough and exertional dyspnea; she uses Combivent nebulizer twice a day. Anemia -- unclear etiology; stable. No clinical e/o bleeding Perioperative cardiac risks: CAD yes CHF no CVA yes CKD with creatinine >2 no DM treated with insulin no Functional Capacity: Moderate (4-10 mets) Prior complications of anesthesia: none ROS: Pulmonary: shortness of breath with exertion cough chronic no stridor no wheezing no Re cent Respiratory Infection Pt. Has no asthma COPD severe (O2) No dx of sleep apnea Cardiovascular: Functional Capacity: Low - cyanosis, palpitations and syncope no chest pain no CHF hypertension CAD Sx cardiac stents no valvular problems/murmurs no arrhythmia no Cardiac assist devices no pacemake r/ICD GI/Hepatic: no GI Bleed GERD no liver disease no hepatitis Renal: no renal failure no electrolyte abnormalities no dialysis Endo: no Diabetes: no Endocrine Other no Hx Corticosteroid Use Neuro/Psych: Head Conditions: TIA/CVA No Spine Conditions No Neuromuscular Conditions no Psych Disorder Musculoskeletal: no arthritis No Muscular Disorders Heme/Onc: Pt. has: no active bleeding no bleeding disorder No clotting disorders No he moglobin disorders no malignancy Infectious Disease: MRSA (hx of MRSA many years ago) no VRE Skin: no open wounds no skin conditions AutoImmune Disorders: No autoimmune disorders Current medications reviewed / updated Current Outpatient Prescriptions Medication Sig aspirin EC 81 mg oral tablet,delayed release (DR/EC) Take 1 tablet by mouth once daily. Do not restart aspirin until 2 weeks after surgery-12/20 atorvastatin 80 mg oral tablet Take 80 mg by mouth once daily at bedtime. ipratropium-albuterol 0.5 mg-3 mg(2.5 mg base)/3 mL inhalation solution for nebulizatio n Inhale 3 mL two times daily. lisinopril 5 mg oral tablet Take 5 mg by mouth once daily. metoprolol succinate 50 mg oral tablet extended release 24 hr Take 50 mg by mouth once daily. nitroglycerin 0.4 mg sublingual tablet, sublingual Place under tongue. spironolactone 25 mg oral tablet Take 25 mg by mouth once daily. Level of confidence in medication reconciliation accuracy: Medium Allergies reviewed / updated Allergies Allergen Reactions [place] Tar Hives Betadine [Povidone-Iodine (With Soap)] Rash Cipro [Ciprofloxacin] Nausea and Vomiting Codeine Hcl Nausea and Vomiting Sulfa (Sulfonamide Antibiotics) Erythema Past medical history reviewed / updated Past Medical History: Diagnosis Date Abnormal LFTs (liver function tests) CAD in [place] artery s/p NSTEMI 12/27/2014; status post stent placement in the mid LAD Chronic pain COPD on oxygen at night Essential hypertension GERD (gastroesophageal reflux disease) Goiter Hemorrhagic stroke ([facility]) 2007 aneurysm MRSA (methicillin resistant staph aureus) culture positive post cariotomy for SAH Otitis media recent abx preadmit Subarachnoid hemorrhage due to ruptured aneurysm ([facility]) 2007 Tobacco dependence Past surgery reviewed / updated Past Surgical History Procedure Laterality Date Partial thyroidectomy Right Hysterectomy Bladder suspension 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 Manager Critical Care Unit shunt Tympanoplasty Right 1987 Lumpectomy of left breast 1979 Coronary stent placement 12/28/2014 status post stent placement in the mid LAD Removal of vp genetic shunt Cholecystectomy Family history reviewed / updated Family History Problem Relation Additional Family History Mother dementia Cancer Father brain Cancer Brother lung Social history reviewed / updated Social History Substance Use Topics Smoking status: Current Every Day Smoker Packs/day: 1.00 Years: 47.00 Types: Cigarettes Smokeless tobacco: Never Used Comment: quit for 1 year Alcohol use No PHYSICAL EXAM: Last Vitals: BP 109/60 | Pulse 75 | Temp (Src) 36.3 C (97.3 F) (Oral) | RR 12 | Ht 1.49 9 m (4' 11") | Wt 51.3 kg (113 lb) | SpO2 94% | BMI 22.82 kg/(m^2) Body mass index is 22.82 kg/m. General: Appearance: Healthy, Age appropriate and No distress LOC: Alert HEENT: Normocephalic/Atraumatic, Normal sclerae/conjunctivae, PERRL, EOMI and No thyromega ly Airway: Dentition: dentures-upper missing teeth Mallampati: 4 Mouth Opening: > 3 cm TM Dist ance:> 6 cm C-Spine ROM: Normal Neck Anatomy: Normal Jaw Protrusion: Normal (lower incisors go above upper incisors) Pulmonary: Respiratory: pulmonary exam normal Breath Sounds: rhonchi, wheezes Cardiovascular: Rhythm: Regular Rate: Normal Cardiovascular comments: No M/G/R; no pedal ed terrence Abdomen: General: Normal Body Habitus: normal Musculoskeletal: Range of Motion: Normal range of motion Musculoskeletal Comments: No obvi ous deformities noted. Neuro/Psych: Affect: Normal Cognitive Status: Normal Speech: Normal speech Strength: Normal Muscle Tone: Normal Movement: Normal Gait Station: Normal Cranial Nerves: Normal Sensation: Normal to light touch Comments: No obvious neurologic deficits noted Skin: Color: skin color normal Texture: Normal Turgor: turgor normal Temperature: Warm Other Implanted Devices: Implanted devices: None LABS & DATA REVIEWED/ORDERED Lab Results Component Value Date WBC 9.56 12/09/2017 HB 10.3 12/09/2017 HCT 30.4 12/09/2017 PLT 289 12/09/2017 MCV 94.7 12/09/2017 RDW 44.7 12/09/2017 Lab Results Component Value Date NA 137 12/07/2017 K 5.0 12/07/2017 CL 104 12/07/2017 BICARB 22 12/07/2017 BUN 17 12/07/2017 CR 0.8 02/24/2018 GLU 92 12/07/2017 CA 8.4 12/07/2017 AST 12 03/03/2008 ALT 14 03/03/2008 AP 97 03/03/2008 TBILI 0.7 03/03/2008 TP 7.4 03/03/2008 ALB 2.5 12/07/2017 Lab Results Component Value Date ABO O 12/05/2017 RH Negative 12/05/2017 Lab Results Component Value Date A1C 5.7 (H) 10/03/2015 EKG: Not needed Perioperative risk calculators 2014 ACC/AHA Perioperative Cardiac Risk Stratification (assumes non-emergent, non-cardiac p rocedure) Are active cardiac conditions present? No Calculate the combined surgical and patient-specific risk: using the Field perioperative ca rdiac risk calculator, the risk of major adverse cardiac event (MACE) is: less than 1%. No further risk stratification for coronary disease is indicated. Estimated ASA class 3 Other perioperative risk calculators: Not Applicable ASSESSMENT and RECOMMENDATIONS: Perioperative risk assessment: Cielo Bell is a 68 y.o. 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 Based on the clinical information obtained and reviewed during this visit, the overa ll assessment is that the patient is having elective major surgery with identified risk fact ors. The patient is stable / optimized for surgery. Additional testing/optimization is no t needed. Medication management recommendations: The patient was advised to continue all usual med ications except as noted in Patient Instructions (After Visit Summary given to pt) Pre-procedure antibiotic recommendation: Per standard protocol. CAD -- s/p revascularization with coronary stent; pt is on optimal medical mgmt with ASA , statin and beta mukul. Pt will interrupt aspirin for 7 days before the procedure. HTN -- well controlled. Pt is to continue amlodipine Tobacco dependence -- ongoing. I've recommended that she try reading the book "The Easy Way to Stop Smoking for Women" by Blanco Solis (found on atokore). COPD -- pt has chronic cough and exertional dyspnea; she uses Combivent nebulizer twice a day. I've recommended that along with stopping smoking, she might consider using the inhal er 4 times daily. Anemia -- unclear etiology; stable. No clinical e/o bleeding. She should have iron jeramy dies done to determine if she might be iron deficint. Thank you for the opportunity to contribute to this patient's care. Mable Lee MD [facility] PREOPER[facility]IVE MEDICINE CLINIC AT [facility] 4TH FLOOR DAY STAY [address] [place] [address] I spent time (50 minutes, >50% of the visit) counseling the pt regarding perioperative risk (cardiac/bleeding/ DVT/ respiratory failure/ infection, etc) and methods to mitigate risk. I advised the patient regarding NPO requirements, hydration before surgery, showering, gen eral body hygiene. All pre-procedure instructions given to the patient (after-visit summary ). All of patient's questions were addressed. The patient verbalized understanding of the instructions given. documented in this encounter Plan of Treatment Not on filedocumented as of this encounter Visit Diagnoses + + | Diagnosis | + + | Preoperative examination - Primary Preoperative examination, unspecified | + + | Osteomyelitis, unspecified site, unspecified type (HCC) | + + | Essential hypertension | + + | Anemia, unspecified type | + + | Tobacco dependence Tobacco use disorder | + + documented in this encounter
--- OUTSIDE RECORDS SUMMARY | ~2019-10-16 | XMS | Encounter Summary ---
Demographics + + + | Address | [address] | | | [place] [address] | + + + | Home Phone | | + + + | Preferred Language | Unknown | + + + | Marital Status | | + + + | Confucianism Affiliation | MET | + + + | Race | White | + + + | Ethnic Group | Not or | + + + Author + + + | Author | [facility] | + + + | Organization | [facility] | + + + | [...] Team Providers + +------+ + | Care Molded Goods Spot Picker Name | Role | Phone | + [...] Event | AARON Melendez | [address] | | | | | [facility] | Nora Funes [place], | | | | | Hospital Admitting | [place] [address] | | | | | Desk Located on the | [phone] | | | | | 9th floor | | | | | | [place], [place] | Werner Bender | | | | | [address] | MD [place] [address] | | | | | | [address] | | | | | | [place], [place] | | | | | | [address] | | | | | | [phone] | | | | | | | [...] | | | | | drive from [employer]); 08/11/18; | | | | | 1206 [...] | Oral; Cuffed; 08/03/18; 1938 | MD Napoleon | IVORY POLISHER | +--------+ + + + | Periph [...] + | Drain | 08/03/18; 1527; Dr. Whiet; LAZARA; | 08/03/18 1527 by | 08/09/18 [...] - 08/03/2018 9:00 PM PDT Cielo Bell [id number] Vitals Value Taken Time BP 116/59 08/03/2018 [...] Leija MD performed by resident Name: Werner Bender MD nesthesia Preprocedure Evaluation - Werner Bender MD - 08/03/2018 10:41 AM [facility] Marsha Bell [id number] NPO: 0000 08/03 Last Vitals Temp: 36.4 [...] the original. Addendum created 08/17/18918 by Silvia Myaes CRNA Intraprocedure Meds edited [facility] PreOp No [...] STEMI s/p BMS (denies symptoms since last NC ~2 years prior, took metoprolol t his [...] infarction. NSR. Summary: -- Echo (03/02/17 - [facility]): TDS, EF 35-40%, apical 1/3 is aneurysmal, with akinesis in focal a reas of dyskinesis. Grade 1 diastolic dysfunction. Normal RV size and function. Mild AI -- Cardiac Cath (09/15/16): Left ventricular end-diastolic pressure 25. LM-normal. Proximal- mid LAD with patent stents, 40% ISR, FFR 0.85. LCx-normal, OM2-20%. RCA proximal-20%, mid-30 % -- Lexiscan Cardiolite stress test (07/27/16-[facility]): Severe LV enlargement, marked scarring (co mprising approximately 60% of the entire LV) of the entire anterior, anteroseptal, mid and d istal inferior, inferoseptal, inferolateral and anterolateral segments with no evidence of i schemia, EF 16% -- Echo (12/28/14-[facility]): EF 54%, apical hypokinesis, grade 1 diastolic dysfunction, mild AI -- Cardiac Cath / PCI (12/28/14 - [facility]): LVEDP 35, LM-normal, mid LAD- occluded > [...] D 12/2015) medically managed cardiac stents past NC Last NC: > 1 year valvular problems /murmurs AR [...] | | | | | | Starting [facility] 08/03/18 at 1413, | | | | [...] 11:19 | | | | | Starting [facility] 08/03/18 at 1119, | | AM PDT | | | | | Until [facility] 08/03/18 at 1940 | | | | | | + +---------+ +-------+---+---+ +---+---+ | | | +---+---+ + + + + +-------+---+ | rocuronium (ZEMURON) injection | Rate/Dos | 08/04/19 | 3.5 | 1.01 | | | INTRAPROCEDURE CONTINUOUS PRN, | e Change | 19 2:16 | mcg/kg/m | mL/hr | | | Starting [facility] 08/03/18 at 1141, | | PM PDT | in | | | | Until [facility] 08/03/18 at 1940 | | | | [...]
--- OUTSIDE RECORDS SUMMARY | ~2019-10-16 | XMS | Encounter Summary ---
Demographics + + + | Address | [address] | | | [place] [address] | + + + | Home Phone [...] + + + | Author | [facility] | + + + | Organization | [facility] | + + + | [...] Team Providers + +------+ + | Care Electronic Gluer Name | Role | Phone | + [...] | | | Surgery Services at | [facility], | History of | | | | [facility] [address] | [place] [address] | cranioplasty | | | | [facility] | [phone] | | | | | [facility], | | | | | | [address] | | | | | | [place], [place] | | | | | | [address] | | | | | | [phone] | | | +--------+---------+ + + + [...] again in 1 month. MD CHANDRIKA Hansen/NGUYEN /[id number] signed by Ata White MD at 08/15/2018 4:36 PM LUZWaAta michael MD - 08/15/2018 12:00 PM PDTDictation #1 [id number] signed by Ata White MD at 08/15/2018 [...]
--- OUTSIDE RECORDS SUMMARY | ~2019-10-16 | XMS | Encounter Summary ---
Demographics + + + | Address | [address] | | | [place] [address] | + + + | Home Phone | | + + + | Preferred Language | Unknown | + + + | Marital Status | | + + + | Tenriism Affiliation | MET | + + + [...] Team Providers + +------+ + | Care Print Line Tailer Name | Role | Phone | + +------+ + PCP | Unavailable | + +------+ + Reason for Visit +--------+--------+ + | Reason | Onset | Comments | | | Date | | +--------+--------+ + | Other | 11/09/ | order for home health care | | | 2007 | | +--------+--------+ + Encounter Details +--------+ + + + + | Date | Type | Department | Care Team | Description | +--------+ + + + + | 11/09/ | Telephone | Neurosurgery at | Paramjit Huber MD | Other (order for | | 2007 | | [facility] [address] | [address] | home health care) | | | | [facility] [place] for | [place], [place] | | | | | [facility] He[facility], | [address] | | | | | [place] [address] [facility] | [phone] | | | | | [place], [place] | | | | | | [address] | | | | | | [phone] | | | +--------+ + + + [...] Notes Telephone Encounter - Aline Duvall - 11/15/2007 10:45 AM PDTFaxed order for Home health ca re elephone Encounter - Aline Li - 11/10/2007 9:30 AM PDTPt needs an order for Home health Care faxed to [phone] ATTN: Marce Bell - use coversheet. 08 9:30 AM PDTdocumented in this encounter Plan of Treatment Not on filedocumented as of this encounter Visit Diagnoses Not on filedocumented in this encounter"
--- OUTSIDE RECORDS SUMMARY | ~2019-10-16 | XMS | Encounter Summary ---
Demographics + + + | Address | [address] | | | [place] [address] | + + + | Home Phone | | + + + | Preferred Language | Unknown | + + + | Marital Status | | + + + | Worship Affiliation | MET | + + + | Race | White | + + + | Ethnic Group | Not or | + + + Author + + + | Author | [facility] | + + + | Organization | [facility] | + + + | [...] Team Providers + +------+ + | Care Rotary Slicing Machine Operator Name | Role | Phone [...] | | initial | Ashutosh Nora | [place], [place] | | | | | encounter | Rd | [address] | | | | | Procedures | [facility], [place] | Phone: | | | | | CONSULT TO | [address] | [phone] | | | | | ENT / | Phone: | Fax: | | | | | [facility] | [phone] | [phone] | | | | | [place] | Fax: | | | | | | | [phone] | | +--------+--------+ + + + + [...] | Surgery Services at | [facility] [place], | (Primary Dx) | | | | [facility] [address] | [place] [address] | | | | | [address] | [phone] | | | | | Physician's | | | | | | Pavilion, 2nd floor | | | | | | [place], [place] | | | | | | [address] | | | | | | [phone] | | | +--------+---------+ + + + [...] getting her surgery scheduled. MD CHANDRIKA Hansen/NGUYEN /[id number] signed by Ata White MD at 02/27/2018 10:56 AM Ata Siddiqui MD - 02/24/2018 2:00 PM PSTDictation #[id number] signed by Ata White MD at 02/24/2018 6:06 PM PSTdocumented in this en counter Plan of Treatment Not on filedocumented as of this encounter Visit Diagnoses + + | Diagnosis | + + | History of cranioplasty - Primary | + + documented in this encounter"
--- OUTSIDE RECORDS SUMMARY | ~2019-10-16 | XMS | Encounter Summary ---
Demographics + + + | Address | [address] | | | [place] [address] | + + + | Home Phone | | + + + | Preferred Language | Unknown | + + + | Marital Status | | + + + | Advent Affiliation | MET | + + + [...] Team Providers + +------+ + | Care Seat Trimmer Name | Role | Phone | + +------+ + | Mary Vazquez PA-C | PCP | | + +------+ + Reason for Visit + +--------+ + | Reason | Onset | Comments | | | Date | | + +--------+ + | Pre-op evaluation | 10/20/ | | | | 2018 | | + +--------+ + Encounter Details +--------+ + + + + | Date | Type | Department | Care Team | Description | +--------+ + + + + | 10/20/ | Telephone-S | Preoperative | | Pre-op evaluation | | 2019 | cheduled | Medicine Clinic at | | | | | | [facility] | | | | | | [address] | | | | | | [facility] | | | | | | and Healing, | | | | | | [address] | | | | | | [place], [place] | | | | | | [address] | | | | | | [phone] | | | +--------+ + + + [...] of this encounter Patient Instructions Patient Instructions Silvia Rosado RN - 10/20/2018 1:37 PM PDT PREOPERATIVE INSTRUCTIONS Empty stomach before surgery On the day BEFORE your surgery, drink plenty of fluids and stay well hydrated NOTHING to eat or drink after midnight the night before surgery. This includes water, coffee, candy, mints, gum. Medications Instructions On the evening before your surgery, take ALL your usual evening medications On the morning of surgery TAKE the following medications with a sip of water: METOPROLOL SUCCINATE ER 50 MG TABLET,EXTENDED RELEASE 24 HR On the morning of surgery DO NOT TAKE the following medications: SPIRONOLACTONE 25 MG TABLET Other medications not specifically mentioned are at your discretion as to taking or not taking on the morning of surgery. ATORVASTATIN 80 MG TABLET MEDICATION HELP Unless otherwise directed by your surgeon, do not take any Aspirin, fish oil supplements , vitamin E or non-steroidal anti-inflammatory (NSAIDs i.e. Advil, Aleve, Ibuprofen) or herb al supplements 7-14 days prior to your surgery. These drugs may interfere with normal blood [...] late for your check in for surgery. ? Take a bath or shower and remember to shampoo your hair using your usual hair product bef ore your arrival at the hospital. Please remember to brush your teeth the night before and the morning of your procedure. Preventing post op complications while you are [...] walk. Surgery check-in location: Admitting - [facility], ninth floor lobby Surgery Check in Time: The Preoperative Medicine Clinic is not in the position to give you accurate information regarding surgical check in time. We refer you back to your surgical office regarding this important information. Going Home Your surgical team will decide when you are medically ready to go home. If you are released to go home on the same day as your procedure/surgery please note the following: You will not be able to drive yourself A responsible adult MUST escort you home. You may not drive yourself Your responsible adult can drive you or they can accompany you in a taxi, ride share (castillo ch as Uber/Lyft), or public transportation. An Uber/Lyft/water tanker driver does not count as the responsible adult who accompanies you. Certified Medical Transport can transport you after surgery as long as a competent adult is waiting for you on arrival at your destination Although not mandatory, it is highly recommended that a patient has a responsible person with you to provide overnight monitoring/support following discharge. It IS required that you have a competent person assist you and look after you on the st night after you have undergone regional blocks (72 hours for patients going home with reg ional block pump) If you stayed in the hospital after surgery, please discuss anticipated discharge time a nd plans with your inpatient team so that transportation plans and other going home arrangem ents can be coordinated If you have questions or concerns after you go home, call your doctor s office. If it is after office hours, call the [facility] alfalfa dehydrator operator at [phone] and ask them to page him or h er. documented in this encounter Miscellaneous Notes Telephone Encounter - Silvia Rosado RN - 10/20/2018 1:50 PM PDTH&P out of date on DOS - Last anesthesia by Nimco Stanley DO on 09/19/18. Patient interview complete and pertinent updates documented under patient history. Patient received pre-op instructions per AVS and verbalized good understanding. Phone appoi ntment completed as scheduled. documented in this encounter Plan of Treatment Not on filedocumented as of this encounter Visit Diagnoses Not on filedocumented in this encounter"
--- OUTSIDE RECORDS SUMMARY | ~2019-10-16 | XMS | Encounter Summary ---
Demographics + + + | Address | [address] | | | [place] [address] | + + + | Home Phone | | + + + | Preferred Language | Unknown | + + + | Marital Status | | + + + | Evangelical Affiliation | MET | + + + [...] Team Providers + +------+ + | Care Ceramic Plater Name | Role | Phone | [...] | | 2017 | | Geovanni Boykin [place] | [address] | cranioplasty; wound | | | | Rd [facility] | [facility] | [facility] | | | | Hospital Admitting | [place] [address] | | | | | Desk Located on the | [phone] | | | | | 9th floor | | | | | | [place], [place] | | | | | | [address] | | | +--------+---------+ + + + [...] MD PCP: No Pcp Per PATIENT Service: [facility] Neurosurgery Diagnoses Principal Final Diagnosis: Right-sided [...] our ENT colleagues were consulted and Dr. hWite saw and ev aluated the patient. Dr. White will plan to follow-up with her as an outpatient. The ENT offic e can be called at [phone] to schedule an appointment, if possible you [...] not wish to g o to a penitentiary facility for ongoing IV antibiotic needs so outpatient infusion were arranged through [facility] in [place]. Patient is to go to the hospital [...] 5) Your surgical incision is closed with genoveva nd non absorbable sutures-these will be r emoved at your follow up on 12/23. 6) Monitor surgical site for evidence of warmth, redness, and drainage. Special Instructions/Tests: -Dr White saw patient while inpatient and he will plan to follow-up with her has an outpatien t. -Patient on IV abx for epidural abscess growing S. Aureus. Infusion being done at [facility] -Patient on DAPT for PA s/p stent. DAPT Can be resumed on [...] To: Home with outpatient IV abx through [facility] Does patient have a planned readmission: No Discharge Summary Completed?: Yes. 12/09/2017 Discharging Provider: Marni Manning PA-C Date Completed: 12/09/2017 Time Completed: 1:51 PM Discharging Attending: MD Marni Woods PA-C [place] [id number] [address] [phone] documented in t his encounter Medications at [...] management that inf usions set up at [facility]. Patient has had to BM's since 1529 [...] is a 67 y.o. female CAD s/p PA, HTN, GERD, tobacco use and neurosur gical [...] patient. Marni Manning PA-C Neurological Surgery Pager [phone] Pager: [phone] obinson, Vangie Hannon PA-C - 12/07/2017 7:25 [...] is a 67 y.o. female CAD s/p PA, HTN, GERD, tobacco use and neurosur gical [...] cx. Marni Manning PA-C Neurological Surgery Pager [phone] Pager: [phone] Associated attestation - Casey Hewitt MD - [...] is a 67 y.o. female CAD s/p PA, HTN, GERD, tobacco use and neurosur gical [...] riccardo. Marni Manning PA-C Neurological Surgery Pager [phone] Pager: [phone] Bari Paulino MD - 12/05/2017 10:32 PM [...] Bari Cameron MD PGY-5 Neurological Surgery Pager [phone] signed by Bari Cameron MD at 12/05/2017 [...] is a 67 y.o. female CAD s/p PA, HTN, GERD, tobacco use and neurosur gical [...] washout and revision ELAINE Bee Neurological Surgery [facility] [address] [address] [address] Pager: [phone] Dillan Somers MD - 12/04/2017 5:05 PM [...] 7am Dillan Bridges MD Neurosurgery, PGY-1 Pager [phone] Dillan Somers MD - 12/04/2017 9:23 AM [...] is a 67 y.o. female CAD s/p PA, HTN, GERD, tobacco use and neurosur gical [...] tonight 10.14 for OR tomorrow Please page [phone] with any questions or concerns. Dillan Bridges MD Neurosurgery, PGY-1 Pager [phone] Associated attestation - Casey Hewitt MD - [...] a 67 y.o. female with CAD s/p PA, HTN, GERD, tobacco use, a nd a [...] before her family br ought her to [place] for evaluation. There, a head CT was notable for an epidural air an d fluid collection consistent with abscess, for which she was transferred to [facility] for neuros urgical management. On arrival here she now denies headache, as well as fever/chills, nausea/vomiting, or focal neurologic concerns including weakness, numbness, or tingling. Her head has been wrapped wi th clean gauze and is no longer actively draining. She does endorse a history of ASA 81 give n her prior PA, with her last dose being this morning. 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 NSTEMI 12/27/2014; status post stent placement in the mid LAD Chronic pain Continuous tobacco abuse COPD on oxygen at night CVA (cerebral vascular accident) ([facility]) 2007 Essential hypertension GERD (gastroesophageal reflux disease) Goiter MRSA (methicillin resistant staph aureus) culture positive post cariotomy for SAH Otitis media recent abx preadmit Subarachnoid hemorrhage due to ruptured aneurysm ([facility]) 2007 Tobacco dependence PSH: Past Surgical History Procedure Date Partial thyroidectomy Hysterectomy Cholecystecomy Bladder suspension 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 Economic Analysis Director shunt Tympanoplasty 1987 Lumpectomy of left breast [...] Tommie Zarco MD Allergies: Allergies Allergen Reactions [place] Tar Hives Betadine [Povidone-Iodine (With Soap)] Unknown [...] is a 67 y.o. female CAD s/p PA, HTN, GERD, tobacco use and neurosur gical [...] Please contact the Neurosurgery resident on-call pager [phone] with questions or concerns. Vickie Estrada M.D., M.P.H. R2 Resident Physician Neurological Surgery Pager: [phone] signed by Magnolia Diego MD at 12/20/2017 [...] pause veri fies correct patient, procedure, equipment, phlebotomy support tech and site/side marked as required. CLABSI Prevention [...] area Basilic vein. Cat heter lot number: [id number] with a length of 55 cm was [...] Stevie olson: 12/05/2017 Attending Surgeon:Casey Hewitt MD Wood Veneer Taper(s):Bari Cameron MD. Preoperative Diagnosis: Right-sided wound dehiscence [...] ep idural pus-looking collection. MD CASSANDRA Capps/MODPatricia /[id number] signed by Casey Hewitt MD at 12/07/2017 [...] The patient was positioned appropriately. The following maintenance team leader s were present during the team pause: Neurosurgery, Anesthesiology, OR nursing staff. Surgeon: Casey Hewitt MD Wood Veneer Taper: Bari Cameron MD Pre-op Diagnosis: Cranioplasty infection [...] Bari Cameron MD PGY-5 Neurological Surgery Pager [phone] Associated attestation - Casey Hewitt MD - 12/05/2017 10:44 PM PDTI was present and scrub bed during the entire procedure. Herminia Cappsocumented in this encounter Consult Notes Tika Mejia MD - 12/09/2017 12:25 PM PDT [facility] Infectious Diseases OPAT Referral for Discharge Planning Team A: OPAT RN Sheryl Rowan, Office: [phone], Pager: [phone] ID Diagnosis: Cranial osteomyelitis, s/p removal of [...] Access: Ok to place PICC Follow Up: [facility] ID faculty with preference to schedule with Dr. Mejia, Any available f gilbert or next available OPAT provider in 3 weeks post hospital discharge. Same day appointment coordination with: Neurosurgery if possible Imaging prior to ID follow up: none ID: Please route your note to the "p OPAT/infectious Diseases Clinic" pool Summer Law Associate: For all patients requiring IV antibiotic therapy, please route your OPAT Bj n of Care Note (.CMOPAT) to [facility] "p OPAT/Infectious Diseases clinic" Pool at [...] Plan: 67 y/o F with CAD s/p PA, HTN, SAH s/p right pterional craniotomy for clipping (09/2007) c/b hydrocephalus treated by a right frontal VPS (03/2008) and synthetic cranioplasty for eroded hardwarein 10/2015. Presented with a week of increasing headache and purulent drainage fro m the cranioplasty site with wound dehiscence, and on 12/06/17 underwent removal of craniopl asty and JOINER shunt as well as washout. All hardware [...] the primary team. This patient was staffed [facility] Dr. Mariscal, who agrees with the above assessment and plan unless otherwise documented. Maite Stevens M4 Pager [phone] signed by Xavier Mariscal MD at 12/08/2017 [...] Plan: 67 y/o F with CAD s/p PA, HTN, SAH s/p right pterional craniotomy for clipping (09/2007) c/b hydrocephalus treated by a right frontal VPS (03/2008) and synthetic cranioplasty for eroded hardware in 10/2015. Presented with a week of increasing headache and purulent drainage from the cranioplasty site with wound dehiscence, and on 12/06/17 underwent removal of craniopla sty and JOINER shunt as well as washout. All hardware [...] the primary team. This patient was staffed [facility] Dr. Mariscla, who agrees with the above assessment and plan unless otherwise documented. Tika Mejia MD Infectious Disease Fellow Pager: [phone] signed by Xavier Mariscal MD at 12/07/2017 [...] to fourth dose. Please page clinical pharmacist [phone]) or call central inpatient pharmacy ([phone]) with qu estions. Actual body weight: Weight: 49.4 kg (109 lb) (12/03/17 8577) Labs: CREATININE PLASMA (LAB) (mg/dL) Date Value 12/05/2017 0.74 12/03/2017 0.63 BUN, PLASMA (LAB) (mg/dL) Date Value 12/05/2017 12 12/03/2017 12 WHITE CELL COUNT (K/cu mm) Date Value 12/07/2017 13.50 (H) 12/05/2017 10.28 12/03/2017 12.22 (H) VANCOMYCIN, TROUGH (ug/mL) Date/Time Value 12/07/2017 1114 11.9 Pertinent cultures/sensitivities: Tissue/Abscess from Head: Staphylococcus aureus. Thank you for the consult, Edmund Herr PharmD Clinical Pharmacist Pager: [phone] Marianna Tirado M D - 12/06/2017 4:03 [...] will follow Thank you for the consult Mairanna Chandler MD INFECTIOUS DISEASES AT [facility] [address]RD FLO[address] [place] [address] Mailcode: [address] [place] [id number] Fax - [phone] signed by Marianna Chandler MD at 12/09/2017 [...] dose (1030 12/07). Please page clinical pharmacist ([phone]) or call central inpatient pharmacy ([phone]) with qu estions. Actual body weight: Weight: 49.4 kg (109 lb) (12/03/17 2566) Labs: CREATININE PLASMA (LAB) (mg/dL) Date Value 12/05/2017 0.74 12/03/2017 0.63 BUN, PLASMA (LAB) (mg/dL) Date Value 12/05/2017 12 12/03/2017 12 WHITE CELL COUNT (K/cu mm) Date Value 12/05/2017 10.28 12/03/2017 12.22 (H) Pertinent cultures/sensitivities: Tissue and abscess from head: Few GPCs Catheter Tip from head: NGTD Thank you for the consult, Edmund Herr PharmD Clinical Pharmacist Pager: [phone] oMaite vasquez - 9:27 AM PDTAssociated Order(s): [...] a 67 y.o. female with CAD s/p PA, HTN, SAH s/p right pterional craniotomy for [...] vision at this time. She presented to [facility] where a head CT showed epidural air and fluid collection consistent with abscess. Wound was swabbed in the ED and showed growth of MSSA (12/05). She was then transferred to [facility] for neurosurgi eagle management. Explant of [...] neoplasm of major salivary glands CAD in [place] artery s/p NSTEMI 12/27/2014; status post stent placement in the mid LAD Chronic pain Continuous tobacco abuse COPD on oxygen at night CVA (cerebral vascular accident) ([facility]) 2007 Essential hypertension GERD (gastroesophageal reflux disease) Goiter MRSA (methicillin resistant staph aureus) culture positive post cariotomy for SAH Otitis media recent abx preadmit Subarachnoid hemorrhage due to ruptured aneurysm ([facility]) 2007 Tobacco dependence Past Surgical History: Procedure Laterality Date BLADDER SUSPENSION cholecystecomy CORONARY STENT PLACEMENT 12/28/2014 status post stent placement in the mid LAD HYSTERECTOMY LUMPECTOMY OF LEFT BREAST 1979 PARTIAL THYROIDECTOMY Right REPAIR OF ANEURYSM BY CLIPPING TYMPANOPLASTY Right 1987 JOINER SHUNT Prior Medications: Prescriptions Prior to Admission [...] mg intravenous Q12H Allergies Allergies Allergen Reactions [place] Tar Hives Betadine [Povidone-Iodine (With Soap)] Unknown [...] RLB Gram Stain...........: Gram smear performed at [facility]. Culture: Final Report: No growth after 3 days. Final Report 04/29/2008 CSF Culture Source...............: Cerebrospinal Fluid RLB Gram Stain...........: Gram smear performed at [facility]. Culture: Rare Methicillin resistant Staphylococcus aureus Final ID MRSA Cefazolin R Clindamycin S Erythromycin R Oxacillin R Penicillin R Tetracycline S Trimeth/Sulfa S Vancomycin S Final Report 03/07/2008 CSF Culture Source...............: Cerebrospinal Fluid RLB Gram Stain...........: Gram smear performed at [facility]. Culture: Final Report: No growth after 3 days. Final Report 03/03/2008 CSF Culture Source...............: Cerebrospinal Fluid RLB Gram Stain...........: Gram smear performed at [facility]. Culture: Final Report: No growth after 3 days. Final Report 03/03/2008 Wound Culture Source...............: Skin Abscess RLB Gram Stain...........: Rare Squamous epithelial cells Rare PMN's Rare Gram positive cocci Culture: 1+ Methicillin resistant Staphylococcus aureus Final ID MRSA Cefazolin R Clindamycin S Erythromycin R Oxacillin R Penicillin R Tetracycline S Trimeth/Sulfa S Vancomycin S Final Report Resulted: 03/05/08 RLB ([facility]) [place] [address] [facility] [place] [address] 03/03/2008 Urine Culture Source...............: Clean catch Culture: Final Report: No growth (< 1,000 col/ml) after 24 hours Final Report Resulted: 03/05/08 RLB ([facility]) [place] [address] [place] [address] 10/28/2007 CSF Culture Source...............: Cerebrospinal Fluid RLB Gram Stain...........: Gram smear performed at [facility]. Culture: Final Report: No growth after 3 days. Final Report CULTURE RESULT (no units) Date Value 12/03/2017 No growth to date. Imaging: CT head 12/06: Interval postsurgical changes of right frontal cranioplasty and JOINER shunt rem oval without acute intracranial abnormality. Fluid and gas collection in the cranioplasty be d is unchanged. Problem List: Active Problems: Draining postoperative wound Assessment and Plan: Cielo Bell is a 67 y.o. female with CAD s/p PA, HTN, SAH s/p right pterional c raniotomy [...] initial cultur es from wound swab in [place] show MSSA, an infection of this duration [...] the primary team. This patient was staffed [facility] Dr. Chandler, who agrees with the above assessment and plan unless otherwise documented. Thank you for the consult. We will follow along with you. Maite Stevens, 12/06/17 , 9:29 AM M4 Pager [phone] signed by Marianna Chandler MD at 12/09/2017 [...] consult Marianna Chandler MD INFECTIOUS DISEASES AT [facility] 3RD FLOOR [facility] [address] [facility] Mailcode: [address] [place] [phone] Fax - [phone] documented in this encounter Miscellaneous Notes Handoff - Jemima Holloway RN - 12/09/2017 10:40 AM PDTNursing Handoff Patient Daily Goal: Bowel Movement and progress to discharge (12/09/17 0773) Patient Specific Preferences: wants coffee SAIDA if not having surgery (12/04/17 7639) [facility] IP NURSE HANDOFF: Nesbitt hospital course events: Cielo Bell is a 67 y.o. fem eugenie here for removal of infected crainioplasty and washout. 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 Patient was admitted to [facility] on evening of 12/05. SAFETY Patient/Family Target: [...] prior to discharge. HEALTH PROMOTION Patient/Family Target: Cielo will promote [...] SAIDA if not having surgery (12/04/17 0832) [facility] IP NURSE HANDOFF: Nesbitt hospital course events: Cielo Bell is a 67 y.o. fem eugenie here for removal of infected crainioplasty and washout. 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 Patient was admitted to [facility] on evening of 12/05. SAFETY Patient/Family Target: [...] SAIDA if not having surgery (12/04/17 0832) [facility] IP NURSE HANDOFF: Nesbitt hospital course events: Cielo Bell is a 67 y.o. fem eugenie here for removal of infected crainioplasty and washout. 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 Patient was admitted to [facility] on evening of 12/05. SAFETY Patient/Family Target: [...] SAIDA if not having surgery (12/04/17 0832) [facility] IP NURSE HANDOFF: Nesbitt hospital course events: Cielo Bell is a 67 y.o. fem eugenie here for removal of infected crainioplasty and washout. 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 Patient was admitted to [facility] on evening of 12/05. SAFETY Patient/Family Target: [...] SAIDA if not having surgery (12/04/17 0832) [facility] IP NURSE HANDOFF: Nesbitt hospital course events: Cielo Bell is a 67 y.o. fem eugenie here for removal of infected crainioplasty and washout. 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 Patient was admitted to [facility] on evening of 12/05. SAFETY Patient/Family Target: [...] SAIDA if not having surgery (12/04/17 0832) [facility] IP NURSE HANDOFF: Nesbitt hospital course events: Cielo Bell is a 67 y.o. fem eugenie here for removal of infected crainioplasty and washout. 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 Patient was admitted to [facility] on evening of 12/05. SAFETY Patient/Family Target: [...] -Treat symptoms prn Following. Hallie Duncan RD, DIVISIONAL MERCHANDISING MANAGER, [place] #[id number] Comments: Cielo Bell is a 67 y.o. female admitted for removal of infected crai nioplasty and washout. H/o cranial deformity as a result of craniotomy for SAH in 2007. PMH: CAD, HTN, GERD Diet: Regular; PO intake: 40-100% of meals BM x 1, soft Ht:59"; Wt: 49.4kg -standing (12/03); BMI: 22 Est Nutrition Needs: 1300-1500kcals (25-30kcals/kg); 50-75gm protein (1-1.5gm/kg)Electronic ally signed by Hallie Duncan RD at 12/07/2017 2:53 PM PDTHandoff - Odette Garcia RN - 12/07/2017 7:49 AM PDTNursing Handoff Patient Daily Goal: TO get Helmet so I can get out of this bed. (12/06/17 0830) Patient Specific Preferences: wants coffee SAIDA if not having surgery (12/04/17 0832) [facility] IP NURSE HANDOFF: Nesbitt hospital course events: Cielo Bell is a 67 y.o. fem eugenie here for removal of infected crainioplasty and washout. 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 Patient was admitted to [facility] on evening of 12/05. SAFETY Patient/Family Target: [...] SAIDA if not having surgery (12/04/17 0832) [facility] IP NURSE HANDOFF: Nesbitt hospital course events: Cielo Bell is a 67 y.o. fem eugenie here for removal of infected crainioplasty and washout. 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 Patient was admitted to [facility] on evening of 12/05. SAFETY Patient/Family Target: [...] in amb ulance on a stretcher from [place]. She stated she asked attendant to put [...] coffee SAIDA if not having surgery (12/04/17 7632) [facility] IP NURSE HANDOFF: Nesbitt hospital course events: Per previous RN handoff: 67 y.o. female with CAD s/p PA, HTN, GERD, tobacco use, and a long [...] manages all of her own ADLs at [facility]. SAFETY Patient/Family Target: Cielo will remain [...] Progress to Target: Improving As evidenced by: --SOLE LEATHER CUTTING MACHINE OPERATOR completed shower, LAILA and linen change at [...] neoplasm of major salivary glands CAD in [place] artery s/p NSTEMI 12/27/2014; status post stent placement in the mid LAD Chronic pain Continuous tobacco abuse COPD on oxygen at night CVA (cerebral vascular accident) ([facility]) 2007 Essential hypertension GERD (gastroesophageal reflux disease) Goiter MRSA (methicillin resistant staph aureus) culture positive post cariotomy for SAH Otitis media recent abx preadmit Subarachnoid hemorrhage due to ruptured aneurysm ([facility]) 2007 Tobacco dependence Past Surgical History Procedure Laterality Date Partial thyroidectomy Right Hysterectomy Cholecystecomy Bladder suspension 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 Economic Analysis Director shunt Tympanoplasty Right 1987 Lumpectomy of left breast 1978 Coronary stent placement 12/28/2014 status post stent placement in the mid LAD * No Diagnosis Codes entered * Surgical Procedure Planned - Actual Procedure Performed: Procedure(s) with comments: CRANIAL WOUND WASHOUT - explant of cranioplasty; wound washout REMOVAL OF VENTRIULO-PERITONEAL SHUNT - possible removal of JOINER shunt Anesthesia: General & Local Length of procedure: In Room/Out of Room: 1 Hr 35 Min 54 Sec Surgeon(s) and Role: * Casey Hewitt MD - Primary OR positioning comments: supine Neuro: POSS Sedation Level: Sleep, Easy to Arouse Last pain medication given: Pain medication totals: see MAR Additional pain medication information: none Functional Epidural: N/A TELECOMMUNICATOR: N/A Respiratory: RR: 16, O2 Sat: 93 %, O2 Delivery: Oxymask Breath Sounds: WDL Except DARIEN: LLL: RUL: RLL: MELISSA No Comment: none Cardiac: BP: 107/53 HR: 88 GI: Nausea/Vomiting Status: No Signs/Symptoms: Interventions: Assessment: Comments: none : Last void: 1949 Contact Name: Eric () or Juan ([place]) Contact Number: [phone] Family contacted: Yes Comment:update to brother Eric at time of transfer Belongings:upper dentures returned to Cielo, no other belongings in PACUNursing Handoff Patient Daily Goal: go to OR (12/05/171948) Patient Specific Preferences: wants coffee SAIDA if not having surgery (12/04/17 0832) [facility] IP NURSE HANDOFF: Nesbitt hospital course events: Cielo Bell is a 67 y.o. fem eugenie here for removal of infected crainioplasty and washout. 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 Patient was admitted to [facility] on evening of 12/05. 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 [place] artery s/p NSTEMI 12/27/2014; status post stent placement in the mid LAD Chronic pain Continuous tobacco abuse COPD on oxygen at night CVA (cerebral vascular accident) ([facility]) 2007 Essential hypertension GERD (gastroesophageal reflux disease) Goiter MRSA (methicillin resistant staph aureus) culture positive post cariotomy for SAH Otitis media recent abx preadmit Subarachnoid hemorrhage due to ruptured aneurysm ([facility]) 2007 Tobacco dependence Past Surgical History Procedure Laterality Date Partial thyroidectomy Right Hysterectomy Cholecystecomy Bladder suspension 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 Economic Analysis Director shunt Tympanoplasty Right 1987 Lumpectomy of left breast 1978 Coronary stent placement 12/28/2014 status post stent placement in the mid LAD * No Diagnosis Codes entered * Surgical Procedure Planned - Actual Procedure Performed: Procedure(s) with comments: CRANIAL WOUND WASHOUT - explant of cranioplasty; wound washout REMOVAL OF VENTRIULO-PERITONEAL SHUNT - possible removal of JOINER shunt Anesthesia: General & Local Length of procedure: In Room/Out of Room: 1 Hr 35 Min 54 Sec Surgeon(s) and Role: * Casey Hewitt MD - Primary OR positioning comments: supine Neuro: POSS Sedation Level: Frequently Drowsy, Arousable, Drifts Off to Sleep during Conve rsation Last pain medication given: Pain medication totals: see MAR Additional pain medication information: none Functional Epidural: N/A TELECOMMUNICATOR: N/A Respiratory: RR: (!) 25, O2 Sat: 91 %, O2 Delivery: Nasal cannula Breath Sounds: WDL Except DARIEN: LLL: RUL: RLL: MELISSA No Comment: none Cardiac: BP: 143/80 HR: 90 GI: Nausea/Vomiting Status: No Signs/Symptoms: Interventions: Assessment: Comments: none : Last void: 1949 Contact Name: Eric () sachin Martinez (ASHUTOSH) Contact Number: [phone] Family contacted: Yes Comment:update to brother Eric at time of transfer Belongings:upper dentures returned to Cielo, no other belongings in PACUElectronically sig gem by Silvia Byrne RN at 12/05/2017 11:15 PM PDTHandoff - Diana Pollock RN - 12/06/19 5:42 PM PDTNursing Handoff Patient Daily Goal: Have surgery (12/05/17 0820) Patient Specific Preferences: wants coffee SAIDA if not having surgery (12/04/17 0832) [facility] IP NURSE HANDOFF: Nesbitt hospital course events: Per previous RN handoff: 67 y.o. female with CAD s/p PA, HTN, GERD, tobacco use, and a long [...] Progress to Target: Improving As evidenced by: --SOLE LEATHER CUTTING MACHINE OPERATOR completed shower, LAILA and linen change at [...] Tuesday(per previous shift report) andoff - [place], [place] ALEKSANDAR ferguson - 12/05/2017 5:46 AM PDTNursing Handoff Patient Daily Goal: Find out the plan for surgery- would like to be taken off NPO if not posadas ving sx today (12/04/17831) Patient Specific Preferences: wants coffee SAIDA if not having surgery (12/04/17831) [facility] IP NURSE HANDOFF: Nesbitt hospital course events: Per previous RN handoff: 67 y.o. female with CAD s/p PA, HTN, GERD, tobacco use, and a long [...] all of her own ADLs at [facility]. SAFETY Patient/Family Target: Cielo will use call [...] coffee SAIDA if not having surgery (12/04/17831) [facility] IP NURSE HANDOFF: Nesbitt hospital course events: Per previous RN handoff: 67 y.o. female with CAD s/p PA, HTN, GERD, tobacco use, and a long [...] coffee SAIDA if not having surgery (12/04/17831) [facility] IP NURSE HANDOFF: Nesbitt hospital course events: Per previous RN handoff: 67 y.o. female with CAD s/p PA, HTN, GERD, tobacco use, and a long [...] manages all of her own ADLs at [facility]. NURSING ASSESSMENT & RECOMMENDATIONS FORWARD Nursing [...] a plan for fix head (12/03/17 2200) [facility] IP NURSE HANDOFF: Nesbitt hospital course events: 67 y.o. female with CAD s/p PA, HTN, EULALIA D, tobacco use, and a [...] At | + + + | EXAM: AL ABDOMEN 1 VIEW History: Concern for SBO, [...] Note | + + | Service Account, [employer] Res In Interface - 12/09/2017 4:22 PM PDT EXAM: AL ABDOMEN | | 1 VIEW History: Concern [...] [facility] | [address] | [place] [address] | | | SERVICES, CORE | PARK [...] | + + + + + | [facility] | [address] | [place] [address] | | | SERVICES, CORE | [address] | | | + + + + + X-RAY PORTABLE CHEST PICC LINE CHECK (12/07/2017 1:17 PM PDT) + + | Specimen | + + | | + + + + + | Narrative | Performed At | + + + | EXAM: AL CHEST PICC LINE CHECK HISTORY: new picc placement, pt | [facility] | | ready COMPARISON: 04/29/2008 FINDINGS: Right upper | RADIOLOGY VOICE | | extremity PICC tip is in the region of the cavoatrial junction. JOINER | RECOGNITION 2 | | shunt projects [...] Note | + + | Service Account, [employer] Res In Interface - 12/07/2017 1:25 PM PDT EXAM: AL CHEST | | PICC LINE CHECK HISTORY: new picc placement, pt ready COMPARISON: 04/29/2008 FINDINGS: | | Right upper extremity PICC tip is in the region of the cavoatrial junction. JOINER shunt | | projects over the right [...] | | verifies correct patient, procedure, equipment, phlebotomy support tech and | | | site/side marked as [...] | area Basilic vein. Catheter lot number: [id number] with a length of 55 | | [...] | | | LABORATORY | | | [facility] | | | SERVICES, | | | [...] give dose after drawing trough. Questions, page #[phone]. | LABORATORY | | Thank you. GFR [...] | + + + + + | [facility] | [address] | [place] [address] | | | SERVICES, CORE | PARK [...] give dose after drawing trough. Questions, page #[phone]. | LABORATORY | | Thank you. | SERVICES, RYAN | + + + + + + + + | Performing | Address | City/State/Zipcode | Phone Number | | Organization | | | | + + + + + | [facility] | [address] | [place] [address] | | | SERVICES, CORE | [address] [...] | + + + + + | [facility] | [address] | [place] [address] | | | RYAN ORNELAS | [address] | | | + + + + + OPERATION RECORD (12/06/2017 2:12 AM PDT) + + | Procedure Note | + + | Casey Hewitt MD - 12/06/2017 2:12 AM PDT Date of Service: 12/05/2017 Attending | | Surgeon:Casey Hewitt MD Wood Veneer Taper(s):Bari Cameron MD. | | Preoperative Diagnosis: Right-sided [...] 12/06/2017 00:30:33DT: 12/06/2017 | | 02:12:59Job #: [id number] | + + CT HEAD WO CONTRAST [...] | | | right frontal cranioplasty and JOINER shunt removal without acute | | | [...] postsurgical changes of right frontal cranioplasty and JOINER shunt removal without | | acute intracranial abnormality. Fluid and gas collection in the cranioplasty bed is | | unchanged. Stable bifrontal encephalomalacia. I have personally reviewed the images and, | | if necessary, edited the report. I agree with the report as now presented. Final | | signature: Enrrique Cramer MD 12/06/2017 7:27 AM Preliminary: Essence Tompkins MD | | Dictation initiated: Essence Tompkins MD 12/06/2017 4:45 AM | | | |IMPRESSION: | | | |Interval postsurgical changes of right frontal cranioplasty and JOINER shunt removal without ac chitina intracranial abnormality. | | | |Fluid and [...] | | POC | | | RA[facility] AJ[facility] | | | | | | OF [...] [facility] | [address] | [place], [place] | | | MISTY POINT OF CARE | [address] | [address] | | | TESTS | | | | + + + + + PROCEDURE NOTE (12/05/2017 10:14 PM PDT) + + + | Narrative | Performed At | + + + | Bari Cameron MD 12/05/2017 10:21 PM Neurosurgery Brief | | | Operative Note 12/05/2017 10:14 PM Patient: Cielo Hernadez | | | [place] Consent: Prior to the beginning of the [...] Surgeon: | | | Casey Hewitt MD Wood Veneer Taper: Bari Cameron MD Pre-op | | | [...] PGY-5 | | | Neurological Surgery Pager [phone] | | + + + CULTURE, TISSUE [...] - | | | | | | [place] | | + + + + + [...] + | [facility] | [address] | [place] [address] | | | [place] | | | | + + + [...] + | [facility] - | [address] | [place] [address] | | | [place] | | | [...] 1+ Staphylococcus aureus Refer to culture | [facility] - | | collected 12/05/17 at 2137 for susceptibilities No anaerobic | [facility] - | | organisms isolated Gram Stain: Few squamous epithelial cells | [place] | | Moderate polymorphonuclear cells Few Gram positive cocci | | + + + + + + + + | Performing | Address | City/State/Zipcode | Phone Number | | Organization | | | | + + + + + | [facility] - | [address] | [place] [address] | | | [place] | | | | + + + [...] | + + + + + | [facility] | [address] | [place] [address] | | | [place] | | | [...] [facility] | [address] | [place], [place] | | | [facility] OF CARE | [address] | [address] | | | TESTS | | | [...] [facility] | [address] | [place] [address] | | | SERVICES, | [address] [...] | + + + + + | [facility] | [address] | [place] [address] | | | SERVICES, | [address] [...] | | | LABORATORY | | | [place] | | | SERVICES, | | | [...] | + + + + + | [facility] | [address] | [place] [address] | | | SERVICES, CORE | PARK [...] | + + + + + | [facility] | [address] | [place] [address] | | | RYAN ORNELAS | [address] [...] | + + + + + | [facility] | [address] | [place] [address] | | | SERVICES, CORE | [address] [...] + | [facility] | [address] | [place], [place] | | | CARDIOLOGY | [address] | [address] | | + + + + + [...] + + + + + | [facility] | [address] | [place] [address] | | | SERVICES, CORE | [address] [...] + | [facility] | [address] | [place] [address] | | | SERVICES, RYAN | [address] [...] | + + + + + | [facility] | [address] | [place] [address] | | | SERVICES, CORE | PARK [...] [facility] | [address] | [place] [address] | | | SERVICES, RYAN | [address] [...] [facility] | [address] | [place] [address] | | | RYAN ORNELAS | [address] [...] [facility] | [address] | [place] [address] | | | SERVICES, RYAN | [address] [...] | | | LABORATORY | | | [facility] | | | SERVICES, | | | [...] | + + + + + | [facility] | [address] | [place] [address] | | | SERVICES, RYAN | [address] [...] AM PDT | | | | | [facility] 12/08/17 at 0900, Until | | [...]
--- OUTSIDE RECORDS SUMMARY | ~2019-10-16 | XMS | Encounter Summary ---
Demographics + + + | Address | [address] | | | [place] [address] | + + + | Home Phone | | + + + | Preferred Language | Unknown | + + + | Marital Status | | + + + | Church Affiliation | MET | + + + | Race | White | + + + | Ethnic Group | Not or | + + + Author + + + | Author | [facility] | + + + | Organization | [facility] | + + + | Address [...] Providers + +------+ + | Care Manager Furniture Name | Role | Phone | + +------+ + | No Pcp Per Patient | PCP | Unavailable | + +------+ + Reason for Visit + +--------+ + | Reason | Onset | Comments | | | Date | | + +--------+ + | Transitional Care | 12/13/ | [facility] | | Management | 2017 | | + +--------+ + | Infectious disease | 12/13/ | | | | 2017 | | + +--------+ + Encounter Details +--------+ + + + + | Date | Type | Department | Care Team | Description | +--------+ + + + + | 12/13/ | Telephone | Infectious | Kristen Goss, | Transitional Care | | 2018 | | Diseases at [facility] | RN [address] | Management ([facility]); | | | | [address] | [facility] | Infectious disease | | | | Loop Physician's | [place], [place] | | | | | Tatiana, [address] [place] [address] | [address] | | | | | [place], [place] | [phone] | | | | | [address] | | | | | | [phone] | | | +--------+ + + + [...] this encounter Miscellaneous Notes Telephone Encounter - Kristen Goss, RN - [facility]13[facility]2017 [facility] Note ASSESSMENT Spoke with Cielo at [phone]. She stated that infusions of Ceftriaxone IV have been a dministered as scheduled at 1700 at [facility] in [facility]. Denies any s/s of complicati on of infection, PICC problems or medication adverse reactions. PICC dressing change and la bs on Wednesdays Confirmed follow up appointment on Next Appointment in [facility] is on 12/23/17 at 10:30 am with Saskia Nicolas MD. Verified patient's [facility] medications are accurately listed in current medication list. I have no concerns at this time. PLAN Continue daily ceftriaxone IV. Continue weekly labs and dressing changes. Keep follow up appointment as scheduled with Dr. Nicolas. Encouraged patient to call with any questions or concerns re: IV antibiotics or PICC line. Clinic number given. Faxed lab orders to [facility] at [phone]. They can accept lab orders from outside MD ni. NURSING OUTCOME EVALUATION Previous nursing concern(s): no previous concern(s). The primary barriers to care identified are: None I believe this patient's NURSING STABILITY is Moderately Stable. During this encounter, patient/caregiver verbalizes or demonstrates understanding of educat ion provided. PERCENT OF NURSE'S TIME DEDICATED TO PATIENT CARE I spent 50% of time on patient/caregiver education And 50% of time on symptom management RESULTS OF NURSING INTERVENTIONS Interventions during this encounter resulted in call completed without provider involvement Kristen Goss RN [facility] INFECTIOUS DISEASE [facility] INFECTIOUS DISEASES AT [facility] 3RD FLOOR [address] [phone] documented in this en counter Plan of Treatment Not on filedocumented as of this encounter Visit Diagnoses + + | Diagnosis | + + | Osteomyelitis, unspecified site, unspecified type (HCC) - Primary | + + documented in this encounter"
--- OUTSIDE RECORDS SUMMARY | ~2019-10-16 | XMS | Encounter Summary ---
Demographics + + + | Address | [address] | | | [place] [address] | + + + | Home Phone | | + + + | Preferred Language | Unknown | + + + | Marital Status | | + + + | Orthodoxy Affiliation | Unknown | + + + | Race | White | + + + | Ethnic Group | Not or | + + + Author + + + | Author | [facility] | | | and [place] | + + + | Organization | [facility] | | | [...] Providers + +------+ + | Care Medical Biller/Coder Name | Role | Phone | + [...] | [address] | [address] | | | | | Procedures | [place] | [place], | | | | | [place] Nuclear | [place], [place] | [place] | | | | | Stress Test | [address] | [address] | | | | | (Vasodilator | Phone: | Phone: | | | | | ) CHG | [phone] | [phone] | | | | | MYOCARDIAL | Fax: | Fax: | | | | | SPECT | [phone] | [phone] | | | | | MULTIPLE | | | | | | | STUDIES [place] | | | | | | | CV STRS TST | | | | | | | XERS&/OR RX | | | | | | | CONT ECG W/O | | | | | | | I&R [place] | | | | | | | CARDIAC | | | | | | | STRESS | | | | | | | TST,INTERP/R | | | | | | | EPT ONLY | | | +--------+--------+ + + + + Reason for Visit + + + | Reason | Comments | + + + | Follow-up | | + + + Encounter Details +--------+---------+ + + + | Date | Type | Department | Care Team | Description | +--------+---------+ + + + | 07/29/ | Office | [facility] | Chana Luu, | Precordial pain | | 2017 | Visit | CARDIOLOGY [address] | MD [address] | (Primary Dx); | | | | [address] [place], | [place], [place] | Dyslipidemia; | | | | [place] [address] | [address] | Coronary artery | | | | [phone] | | disease involving | | | | | | [place] coronary | | | | | | artery of [place] | | | | | | heart without angina | | | | | | pectoris; Chronic | | | | | | obstructive | | | | | | pulmonary disease, | | | | | | unspecified COPD | | | | | | type (HCC) | +--------+---------+ + + + Social [...] + + + | Blood Pressure | 118/84 | 07/29/2016 11:18 AM | | | | | PDT | | + + + + + | Pulse | 82 | 07/29/2016 11:18 AM | | | | | PDT | | + + + + + | Temperature | - | - | | + + + + + | Respiratory Rate | 18 | 07/29/2016 11:18 AM | | | | | PDT | | + + + + + | Oxygen Saturation | - | - | | + + + + + | Inhaled Oxygen | - | - | | | Concentration | | | | + + + + + | Weight | 51.3 kg (113 lb) | 07/29/2016 11:18 AM | | | | | PDT | | + + + + + | Height | 149.9 cm (4' 11") | 07/29/2016 11:18 AM | | | | | PDT | | + + + + + | Body Mass Index | 22.82 | 07/29/2016 11:18 AM | | | | | PDT [...] of this encounter Patient Instructions Patient Instructions Lucille Costa RN - 07/29/2016 11:45 AM PDTPersrubina/Ye medina Date: Check-in Time: Where to Check In: Instructions 1. Nothing to eat or drink anything 6 hours prior to Persantine/Lexiscan 2. DO NOT drink caffeine 12 hours prior to the test. 3. DO NOT take any Metoprolol the night before or the morning of the test. 4. You can take all other medications the morning of the test with a small sip of water. 5. Please bring a list of your current medications with you. Resting Portion of test: Date: Check-in Time: Where to Check In: Follow up appointment: 6 months Provider: Date: Check-In Time: documented in this encounter Progress Notes Chana Luu MD - 07/29/2016 11:45 AM PDTFormatting of this note might be different fr om the original. PATIENT NAME: Cielo Bell : 1950: AGE: 66 y.o. PRIMARY CARE: Lance Pandya OUTPATIENT FOLLOW UP VISIT Date of Service: 07/29/2016 HISTORY OF PRESENT ILLNESS: Cielo Bell is a 66 y.o. female with a history of ASHD and bare metal stent to the mid LAD due to NSTEMI. Bare metal was used due to an upcoming craniotomy. She underwen t the craniotomy and had no problems. She is being seen today for follow up. She has had a few brief chest pains. This has lasted a short time and does not follow any pattern. She is struggling with smoking cessation. She has tried all methods. She smoked with the patch on (she knows this is dangerous). She has an upcoming appointment to see a vault attendant in [place] and she is hoping that vijay amaro will have some useful suggestions. She would like to try hypnosis. She had the craniotomy on Nov 06 She is able to walk without difficulty. She is using oxygen at night. She is not sure how she ended up off of cholesterol Rx. She is ok with restarting Lipitor. She had no side effects she knows of. MEDICAL, SURGICAL, AND PERSONAL HISTORY Past Medical, Surgical, Family, and Social History are reviewed in EPIC. CURRENT PROBLEMS Patient Active Problem List Diagnosis Smoking addiction Smoking addiction Smoking addiction Smoking addiction NSTEMI (non-ST elevated myocardial infarction) COPD (chronic obstructive pulmonary disease) PVD (peripheral vascular disease) H/O cerebral aneurysm repair GI bleed Cough due to bronchospasm CAD (coronary artery disease), [place] coronary artery Cardiac Cath: 12/28/14 CONCLUSIONS: 1. Elevated EDP 35 2. No gradient on pullback 3. Normal Left main 4. 100% Mid LAD 5. No residual stenosis and JOÃO 3 flow restored 6. Minimal plaque of the LCX 7. 20-30% mid RCA with collaterals to the LAD CURRENT MEDICATIONS Current Outpatient Prescriptions Medication Sig Dispense Refill aspirin 81 mg EC tablet Take 1 tablet by mouth Daily. 150 tablet 2 clopidogrel (PLAVIX) 75 mg tablet Stop at end on Dec tablet 0 metoprolol succinate (TOPROL XL) 25 mg 24 hr tablet Take 1 tablet by mouth Daily. 90 ta blet 3 pravastatin (PRAVACHOL) 20 mg tablet Take 1 tablet by mouth every morning. 90 tablet 3 No current facility-administered medications for this visit. ALLERGIES Allergies Allergen Reactions Ciprofloxacin Nausea And Vomiting Codeine Nausea And Vomiting Lebec Tar Hives Povidone Iodine Hives Sulfa Antibiotics Other reaction(s): Erythema ROS No bleeding No melena No hematochezia OBJECTIVE: PHYSICAL EXAM BP 118/84 | Pulse 82 | Resp 18 | Ht 1.499 m (4' 11") | Wt 51.3 kg (113 lb) | BMI 22.82 kg/m Constitutional: No acute distress, non-toxic appearance Eyes: conjunctiva normal. PERRL HEENT: Supple, normal ROM and without adenopathy. Oropharynx moist, no pharyngeal exudate s. Respiratory: No respiratory distress, normal breath sounds, no rales, no wheezing Cardiovascular: Normal rate, normal rhythm, 1/6 SE murmurs, no gallops, no rubs. GI: NABS Musculoskeletal: No edema, no tenderness, no deformities. Integument: Well hydrated, no rashes or concerning skin lesions Neurologic: Alert & oriented x 3, no focal deficits noted Psychiatric: Speech and behavior appropriate ASSESSMENT: Chest pain - worrisome as she had a bare metal stent when she was preparing for her craniot lynette Dyslipidemia - off of meds - willing to resume COPD and hypoxemia Still struggling with smoking cessation PLAN: Vasodilator Cardiolite She is seeing pulmonary in [place] She is hoping for help with smoking Return in 6 months if stress test negative I will have lipid and LFTs added when she comes for stress test Electronically signed by: Chana Luu MD [employer] [facility] [facility] [employer] 07/28/2016 Portions of this chart may have been created with [employer] voice recognition software. Occasi onal wrong-word or sound-alike substitutions may have occurred due to the inherent ortez itations of voice recognition software. Please read the chart carefully and recognize, using context, where these substitutions have occurred. documented in this encounter Plan of Treatment Not on filedocumented as of this encounter Results [place] Nuclear Stress Test (Vasodilator) (08/06/2016 12:11 PM PDT) + + | Specimen | + + | | + + + + + | Impressions | Performed At | + + + | 1. Regadenoson EKG is negative. 2. Abnormal Regadenoson | [facility] | | Sestamibi myocardial perfusion study with a very large size, fixed | [facility] | | defect of a severe in [...] by: | | | Lynsey Subramanian MD [facility] 08/06/2016, 12:18 | | + + + + + ----+ | Narrative | Performed At | + + ----+ | | [facility] | | NUCLEAR MEDICINE STRESS TEST REPORT Patient Name: Cielo Larson | [facility] | | Ray Study Date: 08/06/2016 Primary Care Provider: Lance Jerry | [place] [facility] | | Mumtaz : 1950 Age: 66 [...] mmHg. EKG baseline underlying sinus rhythm, anteroseptal PR, | | | age indeterminant. Peak unchanged. [...] ST. | [address] | [place] | [phone] | | [facility] | | [address] | | | - IMAGING | | | | + + + + + documented in this encounter Visit Diagnoses + + | Diagnosis | + + | Precordial pain - Primary | + + | Dyslipidemia Other and unspecified hyperlipidemia | + + | Coronary artery disease involving [place] coronary artery of [place] heart without | | angina pectoris | + + | Chronic obstructive pulmonary disease, unspecified COPD type (HCC) | + + documented in this encounter
--- OUTSIDE RECORDS SUMMARY | ~2019-10-16 | XMS | Encounter Summary ---
Demographics + + + | Address | [address] | | | [place] [address] | + + + | Home Phone | | + + + | Preferred Language | Unknown | + + + | Marital Status | | + + + | Gnosticist Affiliation | MET | + + + | Race | White | + + + | Ethnic Group | Not or | + + + Author + + + | Author | [facility] | + + + | Organization | [facility] | + + + | Address [...] Team Providers + +------+ + | Care Crown Assembly Machine Set Up Mechanic Name | Role | Phone | + +------+ + | Remington Camacho MD | PCP | | + +------+ + Encounter Details +--------+ + + + + | Date | Type | Department | Care Team | Description | +--------+ + + + + | 09/30/ | Documentati | Preoperative | Rosa Mable, | | | 2016 | on | Medicine Clinic at | MD | | | | | [facility] 4th Floor [address] | | | | | | [address] | | | | | | Mailcode: CH4S | | | | | | [facility] | | | | | | and Healing, | | | | | | Building [address]4th Floor | | | | | | [place], [place] | | | | | | [address] | | | | | | [phone] | | | +--------+ + + + [...]
--- OUTSIDE RECORDS SUMMARY | ~2019-10-16 | XMS | Encounter Summary ---
Demographics + + + | Address | [address] | | | [place] [address] | + + + | Home Phone | | + + + | Preferred Language | Unknown | + + + | Marital Status | | + + + | Druze Affiliation | Unknown | + + + | Race | White | + + + | Ethnic Group | Not or | + + + Author + + + | Author | [facility] | | | and [place] | + + + | Organization | [facility] | | | [...] Team Providers + +------+ + | Care Combo Welder Name | Role | Phone | + +------+ + | Lance Pandya DO | PCP | | + +------+ + Encounter Details +--------+ + + + + | Date | Type | Department | Care Team | Description | +--------+ + + + + | 09/15/ | Hospital | [facility] | Conversion | Abnormal nuclear | | 2017 | Encounter | [facility]ICAL [facility]ENTER | Transaction, | stress test; | | | | CLINICAL DECISION | Provider Unknown | Atypical chest pain; | | | | [address] | [phone] | SOB (shortness of | | | | [place], [place] | | breath) on exertion; | | | | [phone] | Josefina Santana, | Coronary artery | | | | [phone] | MD [address] | disease of [place] | | | | | [place] [address] | artery of [place] | | | | | [phone] | heart with stable | | | [...] 09/15/162133 Date of Service: 09/15/162130 Status: Signed [employer] Cashier: Nnamdi Elias RN (Registered Nurse) Discharge instructions provided. Patient verbalized understanding. Peripheral IV D/C per pr otocol. Patient tolerated well. Patient discharged home with AVS, Myn[employer] card and belongings. Family will drive patient home. Patient transported out of hospital by staff via [facility]. onver gabriel Transaction, Provider Unknown - 09/15/2016 9:00 PM PDT Nurse Progress Note by Nnamdi Elias RN at 09/15/162099 Author: Nnamdi Elias RN Service: (none) Author Type: Registered Nurse Filed: 09/15/162120 Date of Service: 09/15/162099 Status: Signed [employer] Cashier: Nnamdi Elias RN (Registered Nurse) Patient assisted [...] Date of Service: 09/15/16 1609 Status: Signed [employer] Cashier: Josefina Santana MD (Physician) [facility] Service: Cardiology Admission History & Physical Date of Admission: 09/15/2016 Addendum Please see office vit note from 09/07/2016 below. No interval change. Progress Notes Cielo Bell (MR# [id number]) Progress Notes Info Author Note Status Last Update User Last Update Date/Time Josefina Santana MD Signed Josefina Santana MD 09/09/2016 7:05 PM Progress Notes by Josefina Santana MD at 09/07/16 1605 Author: Josefina Santana MD Service: (none) Author Type: Physician Filed: 09/09/16 1905 Encounter Date: 09/07/2016 Status: Signed [employer] Cashier: Josefina Santana MD (Physician) Related Notes: Original Note by Josefina Santana MD (Physician) filed at 09/07/16 1704 Expand All Collapse All Subjective Subjective: Patient ID: Cielo Bell is a 66 y.o. female. Chief Complaint Patient presents with Referral abn nuc, needs cath per dr Luu HPI It is my pleasure to see this patient at [facility] today. She is a pleasant, 66-year-old female with a 42-hixd-xshn history of smoking and a history of COPD, dyslipidem ia, and coronary artery disease status post prior myocardial infarction and stenting of the mid left anterior descending artery using a bare-metal stent at [facility][note 3]. She was referred for further evaluation of abnormal nuclear stress test. The patient had a fak-GM-gjumdpxfh myocardial infarction back on December 28, 2014. [...] is 16%. Signed by: Lynsey Subramanian MD [facility] 08/06/2016, 12:18 Cath 12/28/2014 Dr. Luu CONCLUSIONS: 1. Elevated EDP 35 2. No gradient on pullback 3. Normal Left main 4. 100% Mid LAD 5. No residual stenosis and JOÃO 3 flow restored 6. Minimal plaque of the LCX 7. 20-30% mid RCA with collaterals to the LAD [place] 12/28/2014 IMPRESSIONS: 1. Normal LV size and [...] No results found for: METF, NMETFX, TFNMFX, [id number], [id number], TOTEPI Assessment/Plan Assessment and Plan: 1. Coronary artery disease, prior nxi-IO-iilytoznl myocardial infarction, status post stent ing of [...] 09/15/161747 Date of Service: 09/15/161746 Status: Signed [employer] Cashier: Caitlin Hobson RN (Registered Nurse) Pt had [...] 09/15/161657 Date of Service: 09/15/161657 Status: Signed [employer] Service Cashier: Caitlin Hobson RN (Registered Nurse) Patient denies pain and is resting comfortably. LEFT radial approach. onver gabriel Transaction, Provider Unknown - 09/15/2016 4:46 PM PDT ED Notes by Caitlin Hobson RN at 09/15/161645 Author: Caitlin Hobson RN Service: Cardiology Author Type: Registered Nurse Filed: 09/15/161647 Date of Service: 09/15/161645 Status: Signed [employer] Cashier: Caitlin Hobson RN (Registered Nurse) Patient denies [...] 09/15/162133 Date of Service: 09/15/162133 Status: Signed [employer] Cashier: Nnamdi Elias RN (Registered Nurse) Patient's discharge [...] 09/15/162127 Date of Service: 09/15/162126 Status: Signed [employer] Service Cashier: Nnamdi Elias RN (Registered Nurse) Patient's discharge [...] | | | Clot[place] | performed [place] [facility] | seconds | LAB | | | time, POC | [address];[place] | | | | | | [address] | | | | + + + [...] | | | Clotting | performed at [facility] | seconds | LAB | | | time, POC | [address];[place] | | | | | | [address] | | | | + + + [...] | | | Clotting | performed at [facility];[address] | seconds | LAB | | | time, POC | [address];[place], [place] | | | | | | [address] | | | | + + + [...] | | | Basophils | performed at [facility];[address] | K/uL | LAB | | | | [address];[place] | | | | | | [address] | | | | + + + [...] EXTERNAL | | | | performed at [facility], [address] | | LAB | | | | [place] [address], | | | | | | [place] [address] | | | | + + + [...] | | | Calculated | performed at [facility], [address] | | LAB | | | | [place] [address], | | | | | | [place] [phone] | | | | + + + [...] | | | | | | at [facility] | | | | | | [place];[place] [address] | | | | + + + [...] + + | Coronary artery disease of [place] artery of [place] heart with stable angina pectoris | | (HCC) | + + documented in this encounter
--- OUTSIDE RECORDS SUMMARY | ~2019-10-16 | XMS | Encounter Summary ---
Demographics + + + | Address | [address] | | | [place] [address] | + + + | Home Phone | | + + + | Preferred Language | Unknown | + + + | Marital Status | | + + + | Islam Affiliation | MET | + + + | Race | White | + + + | Ethnic Group | Not or | + + + Author + + + | Author | [facility] | + + + | Organization | [facility] | + + + [...] Team Providers + +------+ + | Care Fire Range Technician Name | Role | Phone | + +------+ + PCP | Unavailable | + +------+ + Reason for Referral Physical Therapy (Routine) +--------+--------+ + + + + | Status | Reason | Specialty | Diagnoses / | Referred By | Referred To | | | | | Procedures | Contact | Contact | +--------+--------+ + + + + | Closed | | Physical | Diagnoses | Christina, | Ervin Pt Chh1 | | | | Therapy | | Manami, TRAINING AND DEVELOPMENT SPECIALIST | [address] | | | | | Communicatin | [address] | | | | | g | [address] | for Health | | | | | hydrocephalu | [place], [place] | and Healing, | | | | | s (HCC) | [address] | [address], | | | | | Procedures | | 1st Floor | | | | | PHYSICAL | | [place], [place] | | | | | THERAPY | | [address] | | | | | REFERRAL | | Phone: | | | | | PAyscal A 4 | | [phone] | | | | | visits only | | Fax: | | | | | | | [phone] | +--------+--------+ + + + + Reason for Visit AUTH/CERT +--------+--------+ + + + + | Status | Reason | Specialty | Diagnoses / | Referred By | Referred To | | | | | Procedures | Contact | Contact | +--------+--------+ + + + + | Closed | | | | | [facility] | | | | | | | [facility] | | | | | | | [address] | | | | | | | [address] | | | | | | | [address] | | | | | | | [id number] | | | | | | | [facility] | | | | | | | [place], | | | | | | | [place] [address] | | | | | | | Phone: | | | | | | | [phone] | | | | | | | Fax: | | | | | | | [phone] | +--------+--------+ + + + + Encounter Details +--------+ + + + + | Date | Type | Department | Care Team | Description | +--------+ + + + + | 03/03/ | Hospital | [facility] [address] | Peter Urbina MD | | | 2008 - | Encounter | [address] | Paramjit Huber MD | | | | | [id number] [facility] | [address] | | | 03/08/ | | [facility] [place], | [place], [place] | | | 2008 | | [place] [address] | [address] | | | | | | [phone] | | | | | | | [...] + + + | Blood Pressure | 122/76 | 03/08/2008 11:00 AM | | | | | PST | | + + + + + | Pulse | 82 | 03/08/2008 11:00 AM | | | | | PST | | + + + + + | Temperature | 36.8 C (98.2 F) | 03/08/2008 7:30 AM | | | | | PST | | + + + + + | Respiratory Rate | 16 | 03/08/2008 11:00 AM | | | | | PST | | + + + + + | Oxygen Saturation | 98% | 03/08/2008 11:00 AM | | | | | PST | | + + + + + | Inhaled Oxygen | - | - | | | Concentration | | | | + + + + + | Weight | 52.8 kg (116 lb 6.5 | 03/03/2008 12:15 AM | | | | oz) | PST | | + + + + + | Height | 149.9 cm (4' 11") | 03/03/2008 12:15 AM | | | | | PST | | + + + + + | Body Mass Index | 23.51 | 03/03/2008 12:15 AM | | | | | PST | | + + + + + documented in this encounter Discharge Summaries Other, Faculty - 03/08/2008 4:08 PM Quita Sandoval Np - 03/06/2008 7:47 AM Tr contreras of this note might be different from the original. INPATIENT PROVIDER DISCHARGE AND INTERDISCIPLINARY INSTRUCTIONS Discharge Date: 03/08/2008 Service: Neurosurgery You or your family member have been primarily hospitalized for: Headache and neck pain Principal Final Diagnosis: Neck abscess, MRSA positive Additional Diagnoses: Hydrocephalus You or your family had the following procedures: Principal Procedure: Drainage of neck abscess Additional Procedures: Lumbar puncture, CSF analysis CT scan of head and neck Spinal tap Cultures (skin abscess, cerebrospinal fluid, blood, urine) Reason for Admission, Significant Findings, Treatment, and Complications Brief Hospital Course: Ms. Bell had severe headache and swelling behind left ear, was seen at local Emergency R o, and was referred to [facility] 03/03/08. 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 On admission, the CT scan of head showed a superficial soft tissue abscess in the posterolateral aspect of neck in left side, and her ventricles w ere moderately enlarged. Lab was positive for leucocytosis, indicating the infection. Cultur es were obtained from several sources, and empirical antibiotic therapy was started. Among a ll cultures, only skin abscess was found to be positive with Methicillin Resistant Staphyloc occus Aureus (MRSA) 03/05/08. 10 days course of Doxycycline was started 03/05/08 per Infectiou s Disease recommendation. She had slow recovery in lower extremities function. Cerebrospinal fluid analysis 03/07/08 was unremarkable. She worked with Physical Therapy and Occupational Therapy to regain the lower extremities functions and Activity of Daily Living skills. Other rahman her exams continued to be unremarkable. She will complete the course of antibiotic sheila tment, and will be seen by Dr. Huber in 1 week to be evaluated for the placement of Ventricu lar Peritoneal Shunt placement for hydrocephalus. Wound care instruction was given to the luis miguel engel. She will work with Inpatient or Outpatient Physical Therapy depending on her ability. Family will provide 24 hours supervision upon discharge. Discharge Medications: See AfterVisit Summary START taking these medications doxycycline hyclate 100 mg Oral Tablet Take 1 Tab by mouth two times daily. Qty: 14 Refills: 0, Last dose before discharge 03/08/08 at 0900. First dose started 03/05 pm. CONTINUE these medications which have NOT CHANGED docusate sodium (COLACE) 100 mg Oral Capsule take 1 capsule (100 mg) by oral route once daily at bedtime as needed Qty: 60 Refills: 0 oxycodone immediate release 5 mg Oral Tablet 5-15 mg Oral EVERY 3 HOURS NEEDED Qty: 200 Refills: 0 pravastatin 20 mg Oral Tablet take 2 tablets (40 mg) by oral route once daily Qty: 30 Refills: 1 Diet: Regular Activity: As tolerated. No heavy lifting. Special Instructions: (Treatment, Equipment, Supplies, Dressing) Keep incision clean and d ry. Continue wound packing as instructed by Neurosurgery Resident. No soaking in water until next appointment. Call: . Ask the play back operator to page Neurosurgery resident. If you have any of the following: Difficulty breathing or unusual shortness of breath Excessive bleeding, drainage at the operative site Fevers, chills, increased pain that is not relieved by pain medications Persistent nausea or vomiting Other SPECIFIC concerns, such as: Change in level of consciousness Follow Up Appointments: PCP: Luis Manuel Baker When? In 1-2 weeks. Other: Neurosurgery Clinic in 1 weeks. Please call to schedule an appointmen t. Follow Up Tests: (Tests at [facility] must be entered into Epic) None at this time Condition On Discharge: Stable Vital Signs at discharge as appropriate: BP: 123/75 mmHg (03/08/08 7:30 AM) Pulse: 84 (03/08/08 7:30 AM) Resp: 16 (03/08/08 7:30 AM) Wt - Scale: 52.8 kg (116 lb 6.5 oz) (03/03/08 12:15 AM) Discharge Patient To: Home Does patient have a planned readmission: Yes- Date To be determined by Dr. Huber Discharge Summary Completed?: Yes- Date 03/08/08 Discharging Provider: QUITA BURNS Date Completed: 03/08/08 Time Completed: 899 Discharging Attending: Paramjit Huber MD documented in this encou nter Discharge Instructions Instructions Cari Wiley RN - 03/06/2008Formatting of this note might be different from th e original. INPATIENT PROVIDER DISCHARGE AND INTERDISCIPLINARY INSTRUCTIONS Discharge Date: 03/08/2008 Service: Neurosurgery You or your family member have been primarily hospitalized for: Headache and neck pain Principal Final Diagnosis: Neck abscess, MRSA positive Additional Diagnoses: Hydrocephalus You or your family had the following procedures: Principal Procedure: Drainage of neck abscess Additional Procedures: Lumbar puncture, CSF analysis CT scan of head and neck Spinal tap Cultures (skin abscess, cerebrospinal fluid, blood, urine) Reason for Admission, Significant Findings, Treatment, and Complications Brief Hospital Course: Ms. Bell had severe headache and swelling behind left ear, was seen at local Emergency R o, and was referred to [facility] 03/03/08. 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 On admission, the CT scan of head showed a superficial soft tissue abscess in the posterolateral aspect of neck in left side, and her ventricles w ere moderately enlarged. Lab was positive for leucocytosis, indicating the infection. Cultur es were obtained from several sources, and empirical antibiotic therapy was started. Among a ll cultures, only skin abscess was found to be positive with Methicillin Resistant Staphyloc occus Aureus (MRSA) 03/05/08. 10 days course of Doxycycline was started 03/05/08 per Infectiou s Disease recommendation. She had slow recovery in lower extremities function. Cerebrospinal fluid analysis 03/07/08 was unremarkable. She worked with Physical Therapy and Occupational Therapy to regain the lower extremities functions and Activity of Daily Living skills. Other rahman her exams continued to be unremarkable. She will complete the course of antibiotic sheila tment, and will be seen by Dr. Huber in 1 week to be evaluated for the placement of Ventricu lar Peritoneal Shunt placement for hydrocephalus. Wound care instruction was given to the luis miguel engel. She will work with Inpatient or Outpatient Physical Therapy depending on her ability. Family will provide 24 hours supervision upon discharge. Discharge Medications: See AfterVisit Summary START taking these medications doxycycline hyclate 100 mg Oral Tablet Take 1 Tab by mouth two times daily. Qty: 14 Refills: 0, Last dose before discharge 03/08/08 at 0900. First dose started 03/05 pm. CONTINUE these medications which have NOT CHANGED docusate sodium (COLACE) 100 mg Oral Capsule take 1 capsule (100 mg) by oral route once daily at bedtime as needed Qty: 60 Refills: 0 oxycodone immediate release 5 mg Oral Tablet 5-15 mg Oral EVERY 3 HOURS NEEDED Qty: 200 Refills: 0 pravastatin 20 mg Oral Tablet take 2 tablets (40 mg) by oral route once daily Qty: 30 Refills: 1 Diet: Regular Activity: As tolerated. No heavy lifting. Special Instructions: (Treatment, Equipment, Supplies, Dressing) Keep incision clean and d ry. Continue wound packing as instructed by Neurosurgery Resident. No soaking in water until next appointment. Call: . Ask the play back operator to page Neurosurgery resident. If you have any of the following: Difficulty breathing or unusual shortness of breath Excessive bleeding, drainage at the operative site Fevers, chills, increased pain that is not relieved by pain medications Persistent nausea or vomiting Other SPECIFIC concerns, such as: Change in level of consciousness Follow Up Appointments: PCP: Luis Manuel Baker When? In 1-2 weeks. Other: Neurosurgery Clinic in 1 weeks. Please call to schedule an appointmen t. Follow Up Tests: (Tests at [facility] must be entered into Epic) None at this time Condition On Discharge: Stable Vital Signs at discharge as appropriate: BP: 123/75 mmHg (03/08/08 7:30 AM) Pulse: 84 (03/08/08 7:30 AM) Resp: 16 (03/08/08 7:30 AM) Wt - Scale: 52.8 kg (116 lb 6.5 oz) (03/03/08 12:15 AM) Discharge Patient To: Home Does patient have a planned readmission: Yes- Date To be determined by Dr. Huber Discharge Summary Completed?: Yes- Date 03/08/08 Discharging Provider: QUITA BURNS Date Completed: 03/08/08 Time Completed: 0900 Discharging Attending: Paramjit Huber MD INPATIENT NURSE ORDER FOR DISCHARGE AND INTERDISCIPLINARY INSTRUCTIONS DISCHARGE DATE: 03/08/2008 PATIENT EDUCATION: Patient given the following printed education materials none Review with patient/family: Understanding of disease/injury/surgical repair Yes Signs/symptoms that they should report Yes Understanding of medications and side effects Yes Activity and diet instructions yes Follow-up appointments Yes Any concerns/fears no Smoking Cessation Counseling/Information was given: N/A Additional Instructions: (ex: daily weights, wound care, tube feeding, trach care, CBG jake toring etc.) Personal Effects/Medications: Sent home with patient Discharged Via: Wheelchair Mode of Transportation: Car Accompanied by: Family/Responsible [employer] Company Name: (when applicable) NA Phone #: NA Discharge Nurse: Cari Wiley Date: 03/08/2008 Discharge Time: 2:20 PM documented in this encounter Medications at Time of [...] documented as of this encounter Progress Notes Vinay Bolaños MD - 03/08/2008 5:24 AM PST NEUROSURGERY PROGRESS NOTE Author: VINAY BOLAÑOS MD Attending Physician: Paramjit Huber MD HPI/Interval Update: No acute events Physical Exam: BP 116/56 | Pulse 90 | Temp 37 C (98.6 F) | Resp 16 | Ht 1.499 m (4' 11") | Wt 52.8 kg (116 lb 6.5 oz) | SpO2 93% Systolic (24hrs), Av mmHg, Min:102 mmHg, Max:141 mmHg Diastolic (24hrs), Av mmHg, Min:56 mmHg, Max:83 mmHg Pulse Av.0 Min: 82 Max: 96 Temp Av.8 C (98.3 F) Min: 36.5 C (97.7 F) Max: 37.1 C (98.8 F) Resp Av.4 Min: 12 Max: 20 SpO2 Av.8 % Min: 93 % Max: 99 % Intake/Output Summary (Last 24 hours) at 03/08 0525 Last data filed at 03/07 1845 Gross per 24 hour Intake 1843 ml Output 500 ml Net 1343 ml Lab Results Basename Value Date/Time NA 145* 03/05/0829 K 4.0 03/05/0829 CR 0.92 03/05/0829 HCT 33.6* 03/05/0829 WBC 9.5 03/05/0829 PLT 388 03/05/0829 INR 1.05 03/03/08 0006 ] CULTURE RESULT (no units) Date Value 03/03/08 CSF Culture Source...............: Cerebrospinal Fluid RLB Gram Stai n...........: Gram smear performed at [facility]. Culture: Final Report: No growth afte r 3 days. Final Report Awake, alert, oriented x3 Fluent speech PERRL B, EOMI, face symmetrical, Palate equal, tongue ML, V1-V3 intact. Motor: no drift, full strength 5/5 in all extremities, Sensation intact to light touch in all ext A/P: wound packing going well. Family has been instructed on how tos. LP done yestrerday improved after this. - continue to monitor - Rosas status - DC home on ABX - f/u 1 week ther, Fac ulty - 03/08/2008 12:00 AM LAINECielo Bell [id number] [facility] REC NUMBER: [id number] NAME : Cielo Bell DATE : 1950 Admit Date: 03/03/2008 Discharge Date: 03/08/2008 PHYSICIAN'S REQUEST FOR HOME HEALTH SERVICES Relevant History: 03/08/2008 13:11 Home PT/OT arranged through [facility] under their indigent program. Requests for funeral home makeup artist and social and political studies professor referral also made to assist family in 24 hour care. [place], [id number] Location to receive services if other than home: Home Allergies: Height: Weight: Ordering Physician: Paramjit Huber [address] [facility] [address] [place] [address] Physician to follow for ongoing home health orders: PCP to follow for HH PCP Name: Luis Manuel Baker PCP Phone: unavailable Discharge Need(s): Feed Miller: ALEKSANDAR Shoemaker Brian, MD,PhD - 03/07/2008 11:47 AM PSTINPATIENT BRIEF OPERATIVE NOTE Date: 03/07/2008 Author: FRANKIE CRABTREE MD, PhD Attending Physician: Dr. Paramjit Huber Assistants: Dr. Galileo Landeros, Dr. Avni Chadwick At 1100 (time), prior to the beginning of the procedure the team paused to verify the patie nt's identity, as well as the procedure to be performed and the correct side/site. All equi pment required was ready and available. The patient was positioned appropriately. [facility] were present during the team pause: Dr. Crabtree, Dr. Landeros, Dr. Chadwick, Oliva [facility] Staff Preoperative Diagnosis: Communicating Hydrocephalus Postoperative Diagnosis: Same Procedure Performed: Lumbar Puncture Estimated Blood Loss: Minimal Fluids: None Specimens: CSF (25 mL) Complications: none Drains: none Disposition: inpatient Findings: Clear, colorless CSF, opening pressure 22, 25 mL CSF drained, closing perssure 6 Vinay Bui MD - 03/07/2008 5:30 AM PST NEUROSURGERY PROGRESS NOTE Author: VINAY BOLAÑOS MD Attending Physician: Paramjit Huber MD HPI/Interval Update:no acute evente Physical Exam: BP 134/66 | Pulse 88 | Temp 36.9 C (98.4 F) | Resp 16 | Ht 1.499 m (4' 11") | Wt 52.8 k g (116 lb 6.5 oz) | SpO2 99% Systolic (24hrs), Av mmHg, Min:115 mmHg, Max:134 mmHg Diastolic (24hrs), Av mmHg, Min:56 mmHg, Max:66 mmHg Pulse Av.2 Min: 80 Max: 89 Temp Av.7 C (98.0 F) Min: 36.3 C (97.3 F) Max: 36.9 C (98.4 F) Resp Av.0 Min: 12 Max: 18 SpO2 Av.3 % Min: 97 % Max: 100 % Intake/Output Summary (Last 24 hours) at 03/07 0530 Last data filed at 03/07 0200 Gross per 24 hour Intake 2495 ml Output 250 ml Net 2245 ml Lab Results Basename Value Date/Time NA 145* 03/05/0829 K 4.0 03/05/0829 CR 0.92 03/05/0829 HCT 33.6* 03/05/0829 WBC 9.5 1/13/09 0030 PLT 388 03/05/08 0030 INR 1.05 03/03/08 0006 ] CULTURE RESULT (no units) Date Value 03/03/08 CSF Culture Source...............: Cerebrospinal Fluid RLB Gram Stai n...........: Gram smear performed at [facility]. Culture: Final Report: No growth afte r 3 days. Final Report Awake, alert, oriented x3 Fluent speech PERRL B, EOMI, face symmetrical, Palate equal, tongue ML, V1-V3 intact. Motor: no drift, full strength 5/5 in all extremities, Sensation intact to light touch in all ext A/P: wound packing going well. Family has been instructed on how tos. Improved after last LP, now worse. - Repeat LP again today - continue to monitor - Rosas status - DC home tomorrow on ABX - f/u 1 week Gabi Bui MD - 03/06/2008 5:29 AM PSTFormatting of this note might be different from the origin al. NEUROSURGERY PROGRESS NOTE Author: VINAY BOLAÑOS MD Attending Physician: Paramjit Huber MD HPI/Interval Update: No acute event.s Physical Exam: BP 120/58 | Pulse 81 | Temp 36.9 C (98.4 F) | Resp 18 | Ht 1.499 m (4' 11") | Wt 52.8 k g (116 lb 6.5 oz) | SpO2 99% Systolic (24hrs), Av mmHg, Min:102 mmHg, Max:126 mmHg Diastolic (24hrs), Av mmHg, Min:51 mmHg, Max:68 mmHg Pulse Av.2 Min: 76 Max: 88 Temp Av.7 C (98.0 F) Min: 36.2 C (97.2 F) Max: 36.9 C (98.4 F) Resp Av.6 Min: 16 Max: 18 SpO2 Av.6 % Min: 95 % Max: 99 % Intake/Output Summary (Last 24 hours) at 03/06 0529 Last data filed at 03/05 2300 Gross per 24 hour Intake 2260 ml Output 0 ml Net 2260 ml Lab Results Basename Value Date/Time NA 145* 03/05/0829 K 4.0 03/05/0829 CR 0.92 03/05/0829 HCT 33.6* 03/05/0829 WBC 9.5 03/05/0829 PLT 388 03/05/0829 INR 1.05 03/03/08 0006 ] CULTURE RESULT (no units) Date Value 03/03/08 CSF Culture Source...............: Cerebrospinal Fluid RLB Gram Stai n...........: Gram smear performed at [facility]. Culture: Preliminary Report: No growt h after 1 day. Culture examined daily. Report will be updated if growth occurs. Further report to follow. Awake, alert, oriented x3 Fluent speech PERRL B, EOMI, face symmetrical, Palate equal, tongue ML, V1-V3 intact. Motor: no drift, full strength 5/5 in all extremities, Sensation intact to light touch in all ext A/P: neck abcess with MRSA and hydrocephalus on CT. Responded moderatly to huigh volume LP, clean CSF. - DC to home with instructions for BID wound packing and continue Doxycycline. - f/u in Dr. Huber clinic in 1 week - when infection cleared, will need VPS placed.Electronically signed by MD kenyetta Blair 03/06/2008 8:20 AM Vinay Bui MD - 03/05/2008 5:30 AM PST NEUROSURGERY PROGRESS NOTE Author: VINAY BOLAÑOS MD Attending Physician: Peter Urbina MD HPI/Interval Update: No acute event.s Physical Exam: BP 92/49 | Pulse 68 | Temp 37 C (98.6 F) | Resp 14 | Ht 1.499 m (4' 11") | Wt 52.8 kg ( 116 lb 6.5 oz) | SpO2 100% Systolic (24hrs), Av mmHg, Min:92 mmHg, Max:156 mmHg Diastolic (24hrs), Av mmHg, Min:49 mmHg, Max:113 mmHg Pulse Av.7 Min: 65 Max: 111 Temp Av.9 C (98.4 F) Min: 36.7 C (98.1 F) Max: 37 C (98.6 F) Resp Av.8 Min: 14 Max: 26 SpO2 Av.0 % Min: 95 % Max: 100 % Intake/Output Summary (Last 24 hours) at 03/05 0530 Last data filed at 03/04 2100 Gross per 24 hour Intake 2560 ml Output 525 ml Net 2035 ml Lab Results Basename Value Date/Time NA 145* 03/05/0829 K 4.0 03/05/0829 CR 0.92 03/05/0829 HCT 33.6* 03/05/0829 WBC 9.5 03/05/0829 PLT 388 03/05/0829 INR 1.05 03/03/08 0006 ] CULTURE RESULT (no units) Date Value 03/03/08 CSF Culture Source...............: Cerebrospinal Fluid RLB Gram Stai n...........: Gram smear performed at [facility]. Culture: Preliminary Report: No growt h after 1 day. Culture examined daily. Report will be updated if growth occurs. Further report to follow. Awake, alert, oriented x3 Fluent speech PERRL B, EOMI, face symmetrical, Palate equal, tongue ML, V1-V3 intact. Motor: no drift, full strength 5/5 in all extremities, Sensation intact to light touch in all ext Complains of POSADAS, Wound packed, some erythema A/P: s/o woundI+D, with hydro on CT. Pt has baseline POSADAS which did not change with high volu me LP. Pt will need a shunt at some point after she has been adequately treated for this nec k infection. Currently on Vanco. Will continue vanco until suseptibilities are complete, the n likely DC to home with return for placement of VPS. Nayla Molina MD - 03/04/2008 2:40 PM PST NSICU attending note: I have seen and evaluated with H/O Dr. Stevenson, and reviewed the chart, lab and i maging results. I agree with the assessment and plan as detailed in the houseofficer note. Presented with neck pain to ED, CT revieled large fluct mass under the skin dorsal, suspic for neck abscess; CT head also positive for hydrocephalus. Last 24hrs: I&D of the absces, feels good neurologically intact, atb (flagyl and vanco) sta rted, susp. UTI, imrpiving leukocytosis. Current critical care problems include Neck absces - st.p. I&D SAH , st.p. Clipping - 09/28 Leucocytosis-improving Patient Active Problem List Diagnoses Code COPD 496Z SAH (Subarachnoid Hemorrhage) 430X HTN 401.9BX GERD (Gastroesophageal Reflux Disease) 530.81K Chronic Pain 338.29A Otitis Media 382.9C Plan for close neuro monitoring, rosas status, off monitors, virtals q 4 hrs, transfer to [facility]. I spent 28 minutes actively involved in intermediate care and management of this patient NAYLA ARREGUIN MD Peter Bustos MD - 03/04/2008 2:12 PM PST NEUROLOGICAL SURGERY - ATTENDING PROGRESS NOTE I saw and evaluated the patient. I agree with the findings and the plan of care as low benitez in the resident s note. OK for transfer to rosas. Peter Urbina MD Physician & Surgeon Department of Neurological Surgery [facility] [place] [address] Pager: [phone] Lisa He MD - 0 03/04/2008 7:00 AM PST ICU DAILY PROGRESS NOTE Author: LISA WEINER MD ICU day # 3 HPI: Cielo Bell is a 58 y.o. y/o female admitted 03/03/2008 12:01 AM. 24 Hour Events: No events overnight SUBJECTIVE: No complaints. Pt feeling well. No pain ASSESSMENT: Last Vitals: BP 128/65 | Pulse 65 | Temp 37.1 C (98.8 F) | Resp 15 | Ht 1.499 m (4' 11" ) | Wt 52.8 kg (116 lb 6.5 oz) | SpO2 99% 24 Hour Vital Min/Max: Systolic (24hrs), Av mmHg, Min:97 mmHg, Max:135 mmHg Diastolic (24hrs), Av mmHg, Min:49 mmHg, Max:79 mmHg Pulse Av.3 Min: 65 Max: 85 Temp Av.8 C (98.3 F) Min: 36.4 C (97.5 F) Max: 37.1 C (98.8 F) Resp Av.5 Min: 12 Max: 24 SpO2 Av.6 % Min: 91 % Max: 100 % Intake/Output Summary (Last 24 hours) at 03/04 0700 Last data filed at 03/04 0500 Gross per 24 hour Intake 2630 ml Output 950 ml Net 1680 ml Neurological: Mental Status: General: Awake, alert and oriented to person, place and time Concentration and attention span: Normal Language: Fluent and articulate without evidence of aphasia or dysarthria Cranial Nerves: PERRL, EOMI, FS, TM Motor: 5/5 no drift HEENT: NCAT Cardiovascular: RRR, no m/r/g Respiratory: CTA B, no w/r/r GI: Soft, NT/ND NABS BM: NR Nutrition: PO / Renal: ID/HO: Antibiotics: Vanc/Flagyl Day 2 Endocrine: No Data Recorded LastCBG CBG Result ($): 115 (03/03/08 4:00 AM) Insulin: 0 Musculoskeletal: Extremities: No c/c/e Pulses: Good distal pulses, warm and well perfused Skin: No rashes or significant breakdown No results found for this basename: PH:5,PCO2:5,PO2:5,HCO3:5,BTJSU9OYL:5,R3LUQUFX:5,H9PCREU RC:5,FIO2:5 in the last 72 hours Chemistries Last 96 Hours (or 3 results): Recent Labs Basename 03/03/08 0006 NA 138 K 3.6 CL 102 BICARB 27 BUN 22* CR 0.73 CA 9.1 MG -- PO4 -- AST 12* ALT 14 TBILI 0.7 AP 97 ALB 3.1* TP 7.4 CBC with diff last 96 hours (or 3 results) Recent Labs Basename 03/03/08 0006 WBC 11.4* HB 13.0 HCT 38.5 PLT 405* NEUTROPERC -- BANDPCT -- LYMPHPERC -- MONOPERC -- BASOPERC -- EOSPERC -- Lab Results Lab Test Name Results Date/Time TBILI 0.7 03/03/08 AP 97 03/03/08 TP 7.4 03/03/08 ALB 3.1 03/03/08 AST 12 03/03/08 ALT 14 03/03/08 Recent Labs Basename 03/03/08 0006 INR 1.05 No results found for this basename: PHENYTOIN:4 in the last 72 hours CULTURE RESULT (no units) Date Value 03/03/08 Wound Culture Source...............: Skin Abscess RLB Gram Stain...... .....: Rare Squamous epithelial cells Rare PMN's Rare Gram positive cocci Culture: pending Further report to follow. 10/28/07 CSF Culture Source...............: Cerebrospinal Fluid RLB Gram Stain ...........: Gram smear performed at [facility]. Culture: Final Report: No growth after 3 days. Final Report 10/27/07 Blood Culture Source..................: Left Subclavian Central venous ca theter Result................... Final: No growth at 5 days. 10/27/07 Urine Culture Source...............: Benavides Cath Urine Culture: Final Report: No growth (< 1,000 col/ml) after 24 hours Final Report Resulted : 10/29/07 [facility] ([facility]) [facility] [place] [address] [place] [address] 10/27/07 Respiratory Culture Source...............: Sputum Sputum Culture: Gram stain shows the presence of significant oropharyngeal contamination. Final Report Current Medications: Current Inpatient Medications Medication Dose Route Frequency acetaminophen (aka TYLENOL) tablet 325-650 mg 325-650 mg Oral EVERY 6 HOURS NEEDED lansoprazole (aka PREVACID) capsule 30 mg 30 mg Oral DAILY magnesium hydroxide (aka MILK OF MAGNESIA) suspension 30 mL 30 mL Oral EVERY 4 HOURS NEEDED metoclopramide (aka REGLAN) injection 5-10 mg 5-10 mg Intravenous EVERY 4 HOURS NEED ED metronidazole (aka FLAGYL) IV 500 mg 500 mg Intravenous EVERY 8 HOURS morphine injection 1-4 mg 1-4 mg Intravenous EVERY 2 HOURS NEEDED NaCl 0.9%-KCl 20 mEq IV Intravenous CONTINUOUS oxycodone immediate release (aka ROXICODONE) tablet 10 mg 10 mg Oral EVERY 4 HOURS N EEDED promethazine (aka PHENERGAN) injection 6.25-12.5 mg 6.25-12.5 mg Intravenous EVERY 4 HO URS NEEDED senna (aka SENOKOT) tablet 1 Tab 1 Tab Oral TWICE DAILY vancomycin (aka VANCOCIN) IV (ADD-vantage) 1,000 mg 1 g Intravenous EVERY 12 HOURS Imaging: CT showing L neck abscess, fairly superficial. Has hydro PLAN: Neurological: Intact. LP performed yesterday secondary to hydrocephalus. Open pressure 40. Drained 32ml of CSF, closing pressure 5. HEENT: Left neck Abscess s/p I&D yesterday. Dressing is c/d/i Cardiovascular: stable, Hemodynamic goals: <160 Respiratory: stable GI: No active issues. / Renal: 24-hour I/O goal: even, Na+ goal: normal, Total Fluids: 75ml/hr ID/HO: vanc/flagyl day 2 Endocrine: No active issues. Musculoskeletal / Skin: No active issues. Routine decubitus ulcer prevention. Routine ICU Care: Lines: PIV Sodium goal: normal Feeding: PO Analgesia: oxycodone Sedation: off Thromboprophylaxis: ambulate Head of bed: >30 Ulcer prophylaxis: PPI Glycemic control: N/A Disposition: to rosas today Rehab: N/A Code: FULL This patient has been staffed with , attending physician, who agrees with the above ass essment and plan. LISA WEINER MD Galileo Bain MD - 03/04/19 09 5:13 AM PST NEUROSURGERY PROGRESS NOTE Author: GALILEO LANDEROS MD Attending Physician: Peter Urbina MD HPI/Interval Update: No acute events overnight. Underwent I&D of her neck abscess and high volume LP. Physical Exam: BP 122/67 | Pulse 80 | Temp 37.1 C (98.8 F) | Resp 14 | Ht 1.499 m (4' 11") | Wt 52.8 k g (116 lb 6.5 oz) | SpO2 97% Systolic (24hrs), Av mmHg, Min:97 mmHg, Max:127 mmHg Diastolic (24hrs), Av mmHg, Min:49 mmHg, Max:74 mmHg Pulse Av.5 Min: 69 Max: 85 Temp Av.8 C (98.3 F) Min: 36.4 C (97.5 F) Max: 37.1 C (98.8 F) Resp Av.7 Min: 12 Max: 24 SpO2 Av.7 % Min: 95 % Max: 100 % Intake/Output Summary (Last 24 hours) at 03/04 0514 Last data filed at 03/04 0300 Gross per 24 hour Intake 2720 ml Output 1250 ml Net 1470 ml Lab Results Basename Value Date/Time NA 138 03/03/085 K 3.6 03/03/085 CR 0.73 03/03/085 HCT 38.5 03/03/085 WBC 11.4* 03/03/085 PLT 405* 03/03/085 INR 1.05 03/03/085 ] CULTURE RESULT (no units) Date Value 03/03/08 Wound Culture Source...............: Skin Abscess RLB Gram Stain...... .....: Rare Squamous epithelial cells Rare PMN's Rare Gram positive cocci Culture: pending Further report to follow. Patient is A+Ox3, PERRLA, EOMI, Face symmetric, tongue ML Her motor exam is 5/5 allover, normal bulk and tone Sensations are ILT Wound clean and minimal drainage. Assessment and Plan: 58 y.o. female s/p a-comm clipping last year now with neck abscess and hydro. Neuro stable. Continue abx. Continue dressing change. Will plan VPS after skin wound has been adequately treated. Follow cultures. Candida Rincon MD - 11:45 AM PST NEUROSCIENCE ICU ATTENDING INPATIENT PROGRESS NOTE Critical Care attending physician: CANDIDA PUCKETT MD Referring Attending Physician: Peter Urbina MD I saw and evaluated the patient at the bedside together with Dr Martinez. I reviewed his fi ndings, all data and the the recent imaging available. I agree with the assessment and the p tom (which I personally formulated together with the resident) as described in the residents note. I have discussed findings and plan of care with the primary team and the consultants involv ed. (Relevant data is listed at the bottom of this note) Patient Active Problem List Diagnoses Code COPD 496Z SAH (Subarachnoid Hemorrhage) 430X HTN 401.9BX GERD (Gastroesophageal Reflux Disease) 530.81K Chronic Pain 338.29A Otitis Media 382.9C Hx / Last 24hr: presented with neck pain to ED yd, CT revieled large fluct mass under the s kin dorsal, suspic for neck abscess; CT head also positive for hydrocephalus; VS WNL, labs p ositive for leucocytosis, otherwise unremarkable, MOE, neuro status: awake, alert, oriented x3, speech intact, face symmetrical, FORBES at full strength, no drift, sens grossly intact Plan: I&D of abscess, frequ neur checks, card monitor, follow labs (CBC), plan for MANAGER RENTAL shunt I spent 41 minutes actively involved in the management of this patient , , PhD RELEVANT DATA: Last Vitals: BP 100/56 | Pulse 69 | Temp 36.7 C (98.1 F) | Resp 14 | Ht 1.499 m (4' 11" ) | Wt 52.8 kg (116 lb 6.5 oz) | SpO2 100% Intake/Output Summary (Last 24 hours) at 03/03 1145 Last data filed at 03/03 1000 Gross per 24 hour Intake 900 ml Output 400 ml Net 500 ml Recent Labs Basename 03/03/08 0006 NA 138 K 3.6 CL 102 BICARB 27 BUN 22* CR 0.73 CA 9.1 MG -- PO4 -- ALB 3.1* Recent Labs Basename 03/03/08 0006 WBC 11.4* HB 13.0 HCT 38.5 PLT 405* NEUTROPERC -- BANDPCT -- LYMPHPERC -- MONOPERC -- BASOPERC -- EOSPERC -- Peter Leigh MD - 03/03/2008 11:22 AM PST NEUROLOGICAL SURGERY - ATTENDING PROGRESS NOTE I saw and evaluated the patient. I agree with the findings and the plan of care as low benitez in the resident s note. Peter Urbina MD Physician & Surgeon Department of Neurological Surgery [facility] [address], [address] [place] [address] Pager: [phone] Vahid Coleman MD - 03/03/2008 8:03 AM PST ICU DAILY PROGRESS NOTE Author: VAHID MARTINEZ MD ICU day # 2 HPI: Cielo Bell is a 58 y.o. y/o female admitted 03/03/2008 12:01 AM. 24 Hour Events: admit SUBJECTIVE: Feeling well, significant neck pain. ASSESSMENT: Last Vitals: BP 117/68 | Pulse 73 | Temp 36.9 C (98.4 F) | Resp 15 | Ht 1.499 m (4' 11" ) | Wt 52.8 kg (116 lb 6.5 oz) | SpO2 95% 24 Hour Vital Min/Max: Systolic (24hrs), Av mmHg, Min:99 mmHg, Max:137 mmHg Diastolic (24hrs), Av mmHg, Min:57 mmHg, Max:84 mmHg Pulse Av.6 Min: 72 Max: 90 Temp Av.6 C (97.9 F) Min: 36.3 C (97.3 F) Max: 36.9 C (98.4 F) Resp Av.9 Min: 12 Max: 17 SpO2 Av.2 % Min: 93 % Max: 98 % Intake/Output Summary (Last 24 hours) at 03/03 08 Last data filed at 03/03 0700 Gross per 24 hour Intake 600 ml Output 400 ml Net 200 ml Neurological: Mental Status: General: Awake, alert and oriented to person, place and time Concentration and attention span: Normal Language: Fluent and articulate without evidence of aphasia or dysarthria Cranial Nerves: PERRL, EOMI, FS, TM Motor: 5/5 no drift HEENT: NCAT, fluctuant mass, TTP L lateral neck 4x2cm Cardiovascular: RRR, no m/r/g Respiratory: CTA B, no w/r/r GI: Soft, NT/ND NABS Nutrition: PO / Renal: ID/HO: Antibiotics: vanc/flagyl d1 Endocrine: CBG Result ($) Av.5 Min: 115 Max: 120 LastCBG CBG Result ($): 115 (03/03/08 4:00 AM) Insulin: 0 Musculoskeletal: Extremities: No c/c/e Pulses: Good distal pulses, warm and well perfused Skin: No rashes or significant breakdown No results found for this basename: PH:5,PCO2:5,PO2:5,HCO3:5,HYOLZ6YEV:5,Q5BWKPSP:5,G6TBZPY RC:5,FIO2:5 in the last 72 hours Chemistries Last 96 Hours (or 3 results): Recent Labs Basename 03/03/08 0006 NA 138 K 3.6 CL 102 BICARB 27 BUN 22* CR 0.73 CA 9.1 MG -- PO4 -- AST 12* ALT 14 TBILI 0.7 AP 97 ALB 3.1* TP 7.4 CBC with diff last 96 hours (or 3 results) Recent Labs Basename 03/03/08 0006 WBC 11.4* HB 13.0 HCT 38.5 PLT 405* NEUTROPERC -- BANDPCT -- LYMPHPERC -- MONOPERC -- BASOPERC -- EOSPERC -- Lab Results Lab Test Name Results Date/Time TBILI 0.7 03/03/08 AP 97 03/03/08 TP 7.4 03/03/08 ALB 3.1 03/03/08 AST 12 03/03/08 ALT 14 03/03/08 Recent Labs Basename 03/03/08 0006 INR 1.05 No results found for this basename: PHENYTOIN:4 in the last 72 hours CULTURE RESULT (no units) Date Value 10/28/07 CSF Culture Source...............: Cerebrospinal Fluid RLB Gram Stain ...........: Gram smear performed at [facility]. Culture: Final Report: No growth after 3 days. Final Report 10/27/07 Blood Culture Source..................: Left Subclavian Central venous ca theter Result................... Final: No growth at 5 days. 10/27/07 Urine Culture Source...............: Benavides Cath Urine Culture: Final Report: No growth (< 1,000 col/ml) after 24 hours Final Report Resulted : 10/29/07 [facility] ([facility]) [facility] [address] [place] [address] 10/27/07 Respiratory Culture Source...............: Sputum Sputum Culture: Gram stain shows the presence of significant oropharyngeal contamination. Final Report 10/27/07 Blood Culture Source..................: Left Subclavian Central venous ca theter Result................... Preliminary: No growth at 1 day. Current Medications: Current Inpatient Medications Medication Dose Route Frequency acetaminophen (aka TYLENOL) tablet 325-650 mg 325-650 mg Oral EVERY 6 HOURS NEEDED lansoprazole (aka PREVACID) capsule 30 mg 30 mg Oral DAILY magnesium hydroxide (aka MILK OF MAGNESIA) suspension 30 mL 30 mL Oral EVERY 4 HOURS NEEDED metoclopramide (aka REGLAN) injection 5-10 mg 5-10 mg Intravenous EVERY 4 HOURS NEED ED morphine injection 1-4 mg 1-4 mg Intravenous EVERY 2 HOURS NEEDED NaCl 0.9%-KCl 20 mEq IV Intravenous CONTINUOUS ondansetron (aka ZOFRAN) injection 4 mg 4 mg Intravenous EVERY 8 HOURS oxycodone immediate release (aka ROXICODONE) tablet 10 mg 10 mg Oral EVERY 4 HOURS N EEDED promethazine (aka PHENERGAN) injection 6.25-12.5 mg 6.25-12.5 mg Intravenous EVERY 4 HO URS NEEDED senna (aka SENOKOT) tablet 1 Tab 1 Tab Oral TWICE DAILY Imaging: CT showing L neck abscess, fairly superficial. Has hydro. PLAN: Neurological: Intact. LP today to relieve some pressure. Will probably need VPS. HEENT: Abscess I&D'd by neurosurg. Cardiovascular: stable, Hemodynamic goals: <160 Respiratory: stable GI: No active issues. / Renal: 24-hour I/O goal: even, Na+ goal: normal, Total Fluids: 75ml/hr ID/HO: Vanc/flagyl for abscess. Endocrine: No active issues. Musculoskeletal / Skin: No active issues x as above. Routine decubitus ulcer prevention. Routine ICU Care: Lines: PIV Sodium goal: normal Feeding: PO Analgesia: APAP/oxy Sedation: off Thromboprophylaxis: ambulate Head of bed: >30 Ulcer prophylaxis: PPI Glycemic control: na Disposition: to rosas today Rehab: na Code: FULL This patient has been staffed with Dr. Puckett, attending physician, who agrees with the above assessment and plan. VAHID MARTINEZ MD erk, Edna Daniel MD - 03/03/2008 6:59 AM PST NEUROSURGERY PROGRESS NOTE Author: EDNA MCINTYRE MD Attending Physician: Peter Urbina MD HPI/Interval Update: NVSS No events Physical Exam: BP 105/60 | Pulse 72 | Temp 36.9 C (98.4 F) | Resp 16 | Ht 1.499 m (4' 11") | Wt 52.8 k g (116 lb 6.5 oz) | SpO2 97% Systolic (24hrs), Av mmHg, Min:99 mmHg, Max:137 mmHg Diastolic (24hrs), Av mmHg, Min:57 mmHg, Max:84 mmHg Pulse Av.3 Min: 72 Max: 90 Temp Av.6 C (97.9 F) Min: 36.3 C (97.3 F) Max: 36.9 C (98.4 F) Resp Av.9 Min: 12 Max: 17 SpO2 Av.2 % Min: 93 % Max: 98 % Intake/Output Summary (Last 24 hours) at 03/03 658 Last data filed at 03/03 0600 Gross per 24 hour Intake 500 ml Output 100 ml Net 400 ml Lab Results Basename Value Date/Time NA 138 03/03/085 K 3.6 03/03/085 CR 0.73 03/03/085 HCT 38.5 03/03/085 WBC 11.4* 03/03/085 PLT 405* 03/03/085 INR 1.05 03/03/085 ] CULTURE RESULT (no units) Date Value 10/28/07 CSF Culture Source...............: Cerebrospinal Fluid RLB Gram Stain ...........: Gram smear performed at [facility]. Culture: Final Report: No growth after 3 days. Final Report MOE, Awake, alert, orientedx3 Face symmetrical , tongue midline Speech clear MOEW No drift Equal strenth x4 DTR's symmetrical NA Sensory exam -WNL Plan: Will DW attending re: dfrainage of neck abcess and timing of VPS erEdna victoria MD - 0 03/03/2008 12:10 AM PST NEUROSURGERY PROGRESS NOTE Author: EDNA MCINTYRE MD Attending Physician: Peter Urbina MD / Jessica Huber HPI/Interval Update: 57 yo female with intermittent headaches, s/p A Comm aneurysm clip, on 09/[address] Huber for F/u,on Saturday 03/04 Had severe POSADAS and swelling behind left ear today, seen at local ED, had a CT scan done, and referred to [facility] This CT scan was not available with patient at the time of transfer admission. Past admission summary: Had POSADAS for past 2 weeks related to L ear infection. Headache became suddenly more severe on evening of 10/16. Pt stood up clutching head and then fell to the gr ound +LOC. Taken by family to ED with reported posturing and agonal respirations in transpor t and on arrival with GSC 3 on arrival to OSH ED. Intubated emergently; received midaz and p ancuronium. Per report - gastric contents suctioned from ETT. CT head obtained & found to posadas ve SAH & transferred to [facility]. (SAH [id number] from ruptured aneurysm) Had crani, and clipping of A Comm A aneurysm on 10/19/07, by Dr. Huber. PMH: HTN - untreated for several years GERD Smoker COPD - Chronic Bronchitis Heavy use of caffiene Chronic Back Pain - steriod injection approx 1 week ago Left ear otitis with assoc lympladenopathy treated recently with Keflex Past Surgical History Procedure Date Hx partial thyroidectomy Hx hysterectomy Cholecystecomy Hx bladder suspension ROS: Constitutional - Negative Skin - Negative Breast - Negative Eyes - Negative Ears/Nose/Mouth/Throat - Negative except infected looking swelling behind left ear, tender to touch Previous surgical incision Right side, CDI Cardiovascular - Negative except OVIEDO Respiratory - Negative except chronic cough Gastrointestinal - Negative except GERD/Heartburn Genitourinary - Negative Musculoskeletal - Negative except recent rash on foot Neurologic/Psychiatric - Negative except Chronic pain Hematologic/Lymphatic - Negative except as above Endocrine - NegativeAll other ROS negative. Meds: Allergies -obtained from OSH ER record Cipro Sulfa No family history on file. Neurologic: MOE, Awake, alert, orientedx3 Face symmetrical , tongue midline Speech clear MOEW No drift Equal strenth x4 DTR's symmetrical NA Sensory exam -WNL Plan: Admit Neuro ICU Repeat CT wwo, as previous Ct scan done at OSH is not available Will REY Urbina re: management CT head wwo seen. This shows a superficial soft tissue abcess in the posterolateral aspect of neck, in left side. Ventricles are moderately enlarged. Plan to treat the soft tissue infection , and discuss re: need for MANAGER RENTAL shunt placment w. Dr. Urbina and Dr. Christensenan docum ented in this encounter H&P Notes Brandon Aguilar MD - 03/03/2008 12:58 AM PSTID: 58 yo female with history of SAH s/p ACOM aneurysm clipping 10/19/07 transferred from outside hospital with increasing headache and nec k pain over the last 2 weeks or so. HPI: Patient has been complaining of headache intermittently ever since her craniotomy in [place]. However since about [place] it has been worse. She also started complaining of neck pain over the last few days. Her daughter also feels she has been more "quiet" and a bit "s lower" for the last 2 weeks. Also has had someThere has been no recent nausea/vomiting. No f monserrat/chills/rigors. She was taken to an outside hospital where exam revealed a swelling beh ind the left ear scan was done but was unavailable. She was also told that she had a urinary tract infection.The patient's daughter tells me that she was told it was abnormal. She was tranferred her to [facility]. The patients only complaint is head and neck pain. She indeed has a golf ball sized swelling behind her left ear that is mildly erythematous and very tender. PSHx: Acom aneurysm clipping 10/19/07 Partial thryroidectomy Hysterectomy Bladder suspension PMHx: Hypertension not on medication. Currently normotensive. Hypercholesterolemia Habits: Former smoker No alcohol No illicit drug use Medications: On a cholesterol agent. Unsure which one. Allergies Sulfa, ciprofloxacin Physical Exam Temp 36.3 Bp 128/74 HR 78 Sat 96% RA Genl: lying supine in bed. NAD. AAOx3. Pleasant, appropriate HEENT: Perrl, Eomi. Golf ball sized swelling behind left ear, tender, erythematous CN2-12 intact FORBES, nonfocal RRR, CTAB ABD nt, nd +bs Skin warm well perfused Gait not tested Radiologic CT head c/w abscess behind left ear and hydrocephalus Wbc 11.5 plts 405 Hct 38.5 Cbg 115 Na 138 K 3.6 Bun 22 Cr 0.73 Assessment and Plan 1) S/p acom aneurysm clipping 10/19/07 now with hydrocephalus. Will likely need MANAGER RENTAL shunt. Gi gia current abscess- placement of a shunt will be deferred. 2) Abscess, posterior to left ear. Likely will require surgical intervention. Will defer an tibiotics for now. 3) ? UTI, send ua documented in thi s encounter Procedure Notes Galileo Landeros MD - 03/03/2008 1:57 PM PSTAssociated Order(s): PROCEDURE NOTEINPATIENT BRIEF OP ERATIVE NOTE Date: 03/03/2008 Author: GALILEO LANDEROS MD Attending Physician: Dr. Horacio Urbina Assistants: None At 13:25 on 03/03 (time), prior to the beginning of the procedure the team paused to verify the patient's identity, as well as the procedure to be performed and the correct side/site. All equipment required was ready and available. The patient was positioned appropriately. The following team members were present during the team pause: Dr. Byron Landeros and nursing staff member. Preoperative Diagnosis: Hydrocephalus Postoperative Diagnosis: Hydrocephalus Procedure Performed: Large volume LP. Estimated Blood Loss: 2ml Fluids: N/A Specimens: CSF Complications: none Drains: none Disposition: Continue ICU care Findings: Open pressure 40. Drained 32ml of CSF, closing pressure 5. No complications. uGalileo rao MD - 009 11:38 AM PSTAssociated Order(s): PROCEDURE NOTEINPATIENT BRIEF OPERATIVE NOTE Date: 03/03/2008 Author: GALILEO LANDEROS MD Attending Physician: Dr. Horacio Urbina Assistants: Dr. Byron Landeros At 11:20 AM on 03/03 (time), prior to the beginning of the procedure the team paused to veri fy the patient's identity, as well as the procedure to be performed and the correct side/sit e. All equipment required was ready and available. The patient was positioned appropriately . The following team members were present during the team pause: Dr. Landeros and nursing staff member. Preoperative Diagnosis: Left neck skin abscess Postoperative Diagnosis: the same Procedure Performed: I &D of left neck skin abscess. Estimated Blood Loss: 5ml Fluids: n/a Specimens: Abscess fluid And swab for GS and culture. Complications: none Drains: none Disposition: continue ICU care Findings: purulent drain from the skin abscess was adequately drains. Samples were sent fo r GS and culture. No complications. Dr. Urbina was present for the critical portion of the procedure. Peter Leigh MD - 0 03/03/2008 12:00 AM PSTAssociated Order(s): TEACHING PHYSICIAN; TEACHING PHYSICIAN [id number] ONOFRE CASTRO [id number] Date: 03/03/2008 Attending Surgeon: Peter Urbina M.D. Electrical Helper(s): Galileo Landeros M.D. Preoperative Diagnosis(es): Neck abscess. Postoperative Diagnosis(es): Neck abscess. Procedures Performed: Incision and drainage of abscess. This is Dr. Urbina dictating to certify I was present for all critical portions of the case. Please addend this to the operative note by Dr. Landeros. Peter Urbina M.D. / [id number] / [id number] / [id number] / Galileo Bain MD - 2008 12:00 AM PSTAssociated Order(s): OPERATION RECORD; OPERATION RECORD [id number] ONOFRE CASTRO [id number] Date: 03/03/2008 Attending Surgeon: Peter Urbina M.D. Electrical Helper(s): Galileo Landeros M.D. Preoperative Diagnosis(es): Left neck skin abscess. Postoperative Diagnosis(es): Left neck skin abscess. Procedures Performed: Incision and drainage of the neck skin abscess on the left. Estimated Blood Loss: 5 cc. Complications: None. Specimen: Abscess fluid and wound swab for Gram's stain and culture. Indication: The patient is a 58-year-old female who is status post OWEN aneurysm clipping in September 2007, presented to the emergency room with intermittent headache and also a swollen lump in the left side of her neck. The lump was erythematous, swollen, and indurated with embossed skin abscess. Therefore, she was indicated for bed side incision and drainage of this abscess. Procedure in Detail: The patient was identified and positioned in the proper position. She was given 1 mg of Versed and 100 fentanyl for a conscious sedation in the ICU. After clean and proper draping of this abscess in the usual sterile fashion, I used an 18-gauge syringe, aspirated some abscess fluid from its pocket. Then, I used a #15 blade, made a transverse incision over the skin abscess. Using a pair of mosquitoes, I probed the inside of the abscess and probed down the loculated pockets. All the abscess fluid was adequately drained. Then, the wound was copiously irrigated with sterile saline. Then, the abscess cavity was packed with sterile Nu Gauze. The skin was covered with a dry sterile 4 x 4 gauze. The patient tolerated the procedure very well. There were no complications. Dr. Urbina was present in the critical portions of this procedure. Galileo Landeros M.D. Peter Urbina M.D. HS / HS [id number] / [id number] / [id number] / documented in this encounte r Miscellaneous Notes Scan - Other, Faculty - 03/08/2008 4:08 PM PST Scan - Other, Faculty - 03/08/2008 4:08 P M PST Scan - Other, Faculty - 03/08/2008 4:08 PM PST Scan - Other, Faculty - 03/08/2008 4:08 PM PST Scan - Other, Faculty - 03/08/2008 4:08 PM PST Plan of Care - Bernard No - 03/08/2008 1:45 PM PSTOT contact note: Issued a gait belt for the family to use with th e pt during ambulation at home. Family was not present at the time, so written instructions were provided and the nurse was informed.Electronically signed by Bernard No at 009 1:47 PM PSTPlan of Care - Terence Paulino - 03/08/2008 12:20 PM PSTProblem: Case Man agment Goals Intervention: Arrange Home Health Services Plan to discharge patient to home today. Patients nephew, Carlos Eduardo is present and able to trans port. Spoke with patients daughter, Linda, who confirms Carlos Eduardo ok to transport and make decisi ons. Patient will have 24 hr assist provided in-home by family. Arranged home health nurse f or wound care support and PT/OT to eval and treat, either in the home or outpt setting depen ding on the patients abilities. Home care arranged through [facility], unfunded program, M[place], , fax, . Family members have been traine d in home wound care as well. Referral also made for social and political studies professor to see and assist family with resources for in-home support. Spoke with CORINE Wagner, regarding yesterdays PT rec that tho ordaz receive caregiver training but family has cared for pt for many months in-home and he is comfortable with current family support. Orders faxed to [facility]. No other anticipate d needs for discharge. [place], [id number] lan of [facility] - Cari Wiley, ALEKSANDAR - 03/07/2008 5:40 PM PSTProblem: Infection, Risk/Actual (Adult, OB) Goal: Verbalize Understanding: Condition, plan of care, self-management of health/lifestyle alterations Patient/Family/S.O. will verbalize an understanding of Infection, Risk/Actual (Adult) its i mpact on present/future lifestyle, health status and functional performance Outcome: Complication present (see intervention notes) Patient slow to respond to questions, forgetful as to reason for admission. Frequently scra tching head around incision, pulling out packing. Frequenly reminded on importance of keepin g hands away from incision and not introducing more bacteria.Icision with yellow thick drain age, cleansed with normal saline and repacked. lan [facility] - Stephania Linares, PT - 03/07/2008 2:45 PM PSTPT Treatment S: I'm doing okay". Oriented to person, place, month year, not day O: SBA supine<>sit. Min A sit<>stand. Ambulated 60' with fww and CGA, requiring multiple verbal cues to focus on task at hand. CGA bed>chair. A: Pt more alert and responsive to therapist, but is still impulsive and easily distractab le. Pt was left in chair with call light and lunch in front of her; RN informed. Caregiver s were not present today for caregiver training. P: Continue with POC Time: 1340 - 1410 Brandon Villalta, SPT I agree with the assesment and plan as outlined in this note and participated in the plann [place] [id number] lan of Care - Stephania Linares, PT - 03/06/2008 2:56 PM PSTProblem: PT Goals - Adult Goal: Functional Mobility Goal 1. Bed mobility ind 1.5 supine<>sit ind with flat bed 2. Transfers bed <>chair AD PRN 3. Ambulate 300 ' ind AD PRN 4. Amb 300' while performing high level balance activities including head turns, sudden sta rt/stop, change in velocity, turns and cognitive tasks. Physical Therapy Evaluation Diagnosis: hydrocephalus, s/p I&D of left neck abscess, POSADAS and GLF with +LOC, may need VPS PMH: A comm aneurysm clip 09/28, HTN, GERD, COPD, Chronic low back pain, ear infection, part ial thyroidectomy, hysterectomy, cholecystectomy, bladder suspension Activity: ambulate Precautions: fall risk S: pt a/o x 1. O: sit<>stand min assist. Static standing balance balance min assist. Pt leans posterior. A mb 50' c mod assist. Pt loses balance with impulsive head turns. Unable to focus on visual p oint due to distractibility. Pt demonstrates shuffling gait with occasional crossing of feet . Trial of fww initially increased steadiness and then pt picked up fww and swung it around causing lob. Min assist BTB. A: pt is high fall risk, will continue to follow P: caregvier training if pt is to d/c home. 45 min lan of Care - Erik manTerence vo M - 03/06/2008 1:14 PM PSTProblem: Case Managment Goals Goal: Discharge Needs Met Outcome: Goal not met Met with patients daughter, carlos manuel Mckeon, and son, Augusto, regarding discharge to home when appropriate. Patient does have hardship funding arranged through [facility], for outpt PT in the past, but family unsure of benefit jairon rao. Patient has been denied for SSDI and OHP funding. Family concerned about patients mental status, incontinence and fathers own illness for dc to home. Daughter has also run out of le [address] benefit to assist. PT recommending to follow because patient is unable to ambulate witho ut one person assist with gait belt. 7a will page nsu to meet with family to discuss plan of care. One family member will be staying at the hospital until dc is appropriate. Will adolphcarmella hoffmanKimberli Robbins, [id number] lan of [place] - Terence Martins - 03/06/2008 11:32 AM PSTProblem: Case Managment Goals Goal: Discharge Needs Met Outcome: Goal not met Patient being followed by PT with recommendation to continue PT, patient also incontinent. Patient unfunded for in-home assist or snf placement. Unsure at this point of families abili ty to assist in the home when discharge is appropriate. Rosendo, [id number] lan of Care - Reedsallykenyetta raoBernard - 03/06/2008 10:56 AM PSTOT evaluation: Assessment: Unable to determine what pt's previous level of function or level of assist at home. Pt does not respond clearly to most questions about her living situation/ home life and did not know why she was here in the hospital. Pt demonstrates a significant delay in r esponses to questions, distractability, and impulsivity/decreased safety awareness with abner walton. Pt will need 24 hour supervision for her safety with mobility. She had one near fall during the evaluation when she attempted to adjust her sock while standing. Pt will benefi t from continued skilled therapy. Diagnosis: hydrocephalus, s/p I&D of left neck abscess, POSADAS and GLF with +LOC, may need VPS PMH: A comm aneurysm clip 09/28, HTN, GERD, COPD, Chronic low back pain, ear infection, part ial thyroidectomy, hysterectomy, cholecystectomy, bladder suspension Activity: ambulate Precautions: fall risk Ended Session: Patient left in Chair, Call button in reach and Nursing Aware. Rehab Potential: Good. Results of the evaluation are below. Please see the care plan under the Rehab-OT heading for goals. Prior level of function: Unable to assess prior level at this time ADLs: Previous Household Activities done by patient: Home Setting and Discharge Planning Information: Lives with: Spouse. Unable to determine level of assist available or previous level of fu nction or level of assist available. Communication / Other: Hearing: WFL Vision: eyeglasses Cognitive Screen: Orientation: Person, Place, Time and unaware of why she is here. Quality of responses: Impulsive and Delayed Command following: Patient follows 75% of commands with verbal cues. Short Term Memory: impaired Judgement /Safety / Awareness: Poor Attention / Concentration: Fair Barriers to learning: Cognitive status Cognitive Observation / comments: Pt could not recall why she is here in the hospital, dem onstrated a 5-15 second delay in verbal responses, could not provide previous level of funct ion, did not think she lived with anyone at home "my sister lives next door, but I don't hav e any help at home." Physical Assessment Upper Extremity Function: Right dominant hand PROM: R WFL, L WFL AROM: R WFL, L WFL Strength: R WFL, L WFL Lower Extremity Function: See PT Record Appears to have LE issues impacting ADL performance. Strength appropriate for ADL transfers. Edema: none visualized Skin Integrity: Intact UE Neurological Function: Unable to determine Balance for ADL performance: Pt is unsteady on her feet with several LOB corrected by the therapist Endurance / Activity Tolerance: Fatigues quickly with minimal exertion Mobility & ADL's Observed Transfer Training: Chair contact-guard assist stand step ADL's: LB Dressing contact-guard assist. Treatment Plan: Focus will be ADLs, mobility, and safety with ADLs. Frequency: 4 times a week Duration: 2 weeks from evaluation date. Treatment plan / goals discussed with Patient. Attempted to contact pt's but was f orwarded to voicemail. There is no return phone number for therapy to provide. Bernard No OTR/L Rehab department [phone] Pager [phone] lan of Care - Vijay Stephania, PT - 03/05/2008 10:25 AM PSTPhysical Therapy Evaluation Diagnosis: hydrocephalus, s/p I&D of left neck abscess, POSADAS and GLF with +LOC, may need VPS PMH: A comm aneurysm clip 09/28, HTN, GERD, COPD, Chronic low back pain, ear infection, part ial thyroidectomy, hysterectomy, cholecystectomy, bladder suspension Activity: ambulate Precautions: fall risk Social/PLOF: Patient lives in [place], [place] with ; has two children who do not live at home. Lives in house with ramp from garage to house. Patient states that she does not r equire assistance doing ADL's. Pt also s/t she uses fww/wc. Pt is unreliable historian on ev al Stairs: None reported Equipment: walker and w/c Occupation: unknown Patient / Family Goal / Subjective Statement: My head hurts. Orientation: A&O x 1 (self). Able to state month and year; initially "I'm in [place]" Quality of responses: slow with responses, requires increased processing time. Command following: fair Ux Interaction Designer Memory: NT Short Term Memory: NT Judgment /Safety / Awareness: poor Attention / Concentration: fair Physical Assessment Pain: 08/30. RN informed. Agreed to tx despite pain rating. PROM: WFL AROM: WFL Strength: At least 3/5 from functional mobility Sensation: WFL Bed Mobility: independent Transfers: Supine <>sit: Min assist Sit <>stand: Min assist Bed <>Chair: Mod assist Balance Static sitting: CGA Dynamic sitting CGA Static standing: min assist Dynamic standing: min assist Gait: Mod assist, Ataxic variable foot placement with left >R. Reduced step length B, red uced velocity. Shuffling step. Pt reaches out for objects to cruise. Knowledge of precautions: None Assessment: Impaired functional mobility and unsteady gait; Will benefit from acute care p hysical therapy to address impairments. Recommendations: Anticipate discharge home with assist. Rehab Potential: fair DME Needs: TBD Treatment Plan: balance training, functional mobility training, gait traini ng, strength training Frequency: 5x/wk Treatment plan / goals discussed with pt Treatment time: 809 Brandon Villalta, SPT Date 03/05/08 I agree with the assesment and plan as outlined in this note and participated in the plan paramjit [place]. [place] [id number] 1 1:30 AM PSTPlan of Silvia Stone RN - 03/05/2008 7:04 AM PSTProblem: Infect ion, Risk/Actual (Adult, OB) Goal: Patient-specific goals Individualized patient goal: get better so i can have shunt placed Outcome: Complication present (see intervention notes) See note for pt specific goal icu standard of care lan of Silvia Stone RN - 03/05/2008 7:01 AM PSTProblem: Standard of Care Adult Goal: Patient-specific goals Individualized patient goal:to go home Outcome: Complication present (see intervention notes) Pt still has infected abcess, so no shunt placed. Pt on antibiotic therapy lan of Terence Nielsen - 03/05/2008 6:53 AM PSTProblem: Case Managment Goals Goal: Discharge Needs Met Outcome: Goal not met Initial Case Management Note Reason for admission: NSU patient now POD 2 for I & D of a neck abscess. Patients history s ignificant for hydrocephalus with an LP this admission and also a crani in September. Pre-admission living situation: Home, [place], [place]. Pre-admission functional status: Unknown. Family/support system: Spouse, Hu, and son, Augusto, listed as emergency contacts. Insurance/funding in place: Patient is unfunded. Anticipated discharge needs: Will follow for transfer/discharge needs. [place], [id number] lan Kingsley Barton rn - 03/03/2008 2:28 PM PSTProblem: Standard of Care Adult Intervention: SOC Critical Nursing Note: Left neck abcess lanced and drained and sent for culture by today. Lumbar puncture done, samples cent for culture, etc. documented in this encoun ter Plan of Treatment Not on filedocumented as of this encounter Procedures + +--------+ + + + | Procedure Name | Priori | Date/Time | Associated Diagnosis | Comments | | | ty | | | | + +--------+ + + + | PROCEDURE NOTE | Routin | 03/28/2015 | | Results for this | | | e | 2:08 PM | | procedure are in the | | | | PST | | results section. | + +--------+ + + + | PROCEDURE NOTE | Routin | 03/28/2015 | | Results for this | | | e | 2:08 PM | | procedure are in the | | | | PST | | results section. | + +--------+ + + + | CSF INFO PANEL | Urgent | 03/07/2008 | | Results for this | | | | 11:32 AM | | procedure are in the | | | | PST | | results section. | + +--------+ + + + | CSF INFO PANEL | Urgent | 03/07/2008 | | Results for this | | | | 11:32 AM | | procedure are in the | | | | PST | | results section. | + +--------+ + + + | CSF INFO PANEL | Urgent | 03/07/2008 | | Results for this | | | | 11:32 AM | | procedure are in the | | | | PST | | results section. | + +--------+ + + + | SPECIMEN ROUTING | Routin | 03/07/2008 | | Results for this | | | e | 11:32 AM | | procedure are in the | | | | PST | | results section. | + +--------+ + + + | GLUCOSE, CSF | Urgent | 03/07/2008 | | Results for this | | | | 11:32 AM | | procedure are in the | | | | PST | | results section. | + +--------+ + + + | GLUCOSE, CSF | Urgent | 03/07/2008 | | Results for this | | | | 11:32 AM | | procedure are in the | | | | PST | | results section. | + +--------+ + + + | CELL COUNT DIFF, CSF | Urgent | 03/07/2008 | | Results for this | | | | 11:32 AM | | procedure are in the | | | | PST | | results section. | + +--------+ + + + | CULTURE, CSF BACTI | Urgent | 03/07/2008 | | Results for this | | | | 11:32 AM | | procedure are in the | | | | PST | | results section. | + +--------+ + + + | GRAM SMEAR ONLY, | Routin | 03/07/2008 | | Results for this | | STAT | e | 11:32 AM | | procedure are in the | | | | PST | | results section. | + +--------+ + + + | PROTEIN, CSF | Urgent | 03/07/2008 | | Results for this | | | | 11:32 AM | | procedure are in the | | | | PST | | results section. | + +--------+ + + + | PROTEIN, CSF | Urgent | 03/07/2008 | | Results for this | | | | 11:32 AM | | procedure are in the | | | | PST | | results section. | + +--------+ + + + | VANCOMYCIN, TROUGH | Routin | 03/05/2008 | | Results for this | | | e | 12:30 AM | | procedure are in the | | | | PST | | results section. | + +--------+ + + + | VANCOMYCIN, TROUGH | Urgent | 03/05/2008 | | Results for this | | | | 12:30 AM | | procedure are in the | | | | PST | | results section. | + +--------+ + + + | BASIC METABOLIC SET | Urgent | 03/05/2008 | | Results for this | | (NA, K, CL, TCO2, | | 12:30 AM | | procedure are in the | | BUN, CR, GLU, CA) | | PST | | results section. | + +--------+ + + + | CBC ONLY | Routin | 03/05/2008 | | Results for this | | | e | 12:30 AM | | procedure are in the | | | | PST | | results section. | + +--------+ + + + | PHOSPHORUS, PLASMA | Urgent | 03/05/2008 | | Results for this | | | | 12:30 AM | | procedure are in the | | | | PST | | results section. | + +--------+ + + + | PHOSPHORUS, PLASMA | Routin | 03/05/2008 | | Results for this | | | e | 12:30 AM | | procedure are in the | | | | PST | | results section. | + +--------+ + + + | MAGNESIUM, PLASMA | Urgent | 03/05/2008 | | Results for this | | | | 12:30 AM | | procedure are in the | | | | PST | | results section. | + +--------+ + + + | MAGNESIUM, PLASMA | Routin | 03/05/2008 | | Results for this | | | e | 12:30 AM | | procedure are in the | | | | PST | | results section. | + +--------+ + + + | VANCOMYCIN, TROUGH | Urgent | 03/04/2008 | | Results for this | | | | 1:24 AM | | procedure are in the | | | | PST | | results section. | + +--------+ + + + | SPECIMEN ROUTING | Routin | 03/03/2008 | | Results for this | | | e | 2:00 PM | | procedure are in the | | | | PST | | results section. | + +--------+ + + + | CSF INFO PANEL | Urgent | 03/03/2008 | | Results for this | | | | 1:56 PM | | procedure are in the | | | | PST | | results section. | + +--------+ + + + | CSF INFO PANEL | Urgent | 03/03/2008 | | Results for this | | | | 1:56 PM | | procedure are in the | | | | PST | | results section. | + +--------+ + + + | CSF INFO PANEL | Urgent | 03/03/2008 | | Results for this | | | | 1:56 PM | | procedure are in the | | | | PST | | results section. | + +--------+ + + + | GLUCOSE, CSF | Urgent | 03/03/2008 | | Results for this | | | | 1:56 PM | | procedure are in the | | | | PST | | results section. | + +--------+ + + + | GLUCOSE, CSF | Urgent | 03/03/2008 | | Results for this | | | | 1:56 PM | | procedure are in the | | | | PST | | results section. | + +--------+ + + + | CELL COUNT DIFF, CSF | Urgent | 03/03/2008 | | Results for this | | | | 1:56 PM | | procedure are in the | | | | PST | | results section. | + +--------+ + + + | CULTURE, CSF BACTI | Urgent | 03/03/2008 | | Results for this | | | | 1:56 PM | | procedure are in the | | | | PST | | results section. | + +--------+ + + + | GRAM SMEAR ONLY, | Routin | 03/03/2008 | | Results for this | | STAT | e | 1:56 PM | | procedure are in the | | | | PST | | results section. | + +--------+ + + + | PROTEIN, CSF | Urgent | 03/03/2008 | | Results for this | | | | 1:56 PM | | procedure are in the | | | | PST | | results section. | + +--------+ + + + | PROTEIN, CSF | Urgent | 03/03/2008 | | Results for this | | | | 1:56 PM | | procedure are in the | | | | PST | | results section. | + +--------+ + + + | CULTURE, WOUND BACTI | Urgent | 03/03/2008 | | Results for this | | & GS | | 11:35 AM | | procedure are in the | | | | PST | | results section. | + +--------+ + + + | UA, DIPSTICK ONLY | Urgent | 03/03/2008 | | Results for this | | | | 1:56 AM | | procedure are in the | | | | PST | | results section. | + +--------+ + + + | URINE, MICROSCOPIC | Urgent | 03/03/2008 | | Results for this | | EXAM | | 1:56 AM | | procedure are in the | | | | PST | | results section. | + +--------+ + + + | URINE SCREEN FOR | Routin | 03/03/2008 | | Results for this | | CULTURE | e | 1:56 AM | | procedure are in the | | | | PST | | results section. | + +--------+ + + + | URINE SCREEN FOR | Urgent | 03/03/2008 | | Results for this | | CULTURE | | 1:56 AM | | procedure are in the | | | | PST | | results section. | + +--------+ + + + | UA, DIPSTICK ONLY | Urgent | 03/03/2008 | | Results for this | | | | 1:55 AM | | procedure are in the | | | | PST | | results section. | + +--------+ + + + | SEDIMENTATION RATE | Urgent | 03/03/2008 | | Results for this | | | | 1:55 AM | | procedure are in the | | | | PST | | results section. | + +--------+ + + + | CULTURE, URINE BACTI | Routin | 03/03/2008 | | Results for this | | | e | 1:55 AM | | procedure are in the | | | | PST | | results section. | + +--------+ + + + | CT HEAD WWO CONTRAST | Routin | 03/03/2008 | | Results for this | | | e | 12:15 AM | | procedure are in the | | | | PST | | results section. | + +--------+ + + + | INR | Urgent | 03/03/2008 | | Results for this | | | | 12:06 AM | | procedure are in the | | | | PST | | results section. | + +--------+ + + + | COMPLETE METABOLIC | Urgent | 03/03/2008 | | Results for this | | SET | | 12:06 AM | | procedure are in the | | (NA,K,CL,CO2,BUN,CRE | | PST | | results section. | | AT,GLUC,CA,AST,ALT,B | | | | | | EMILIANO TOTAL,ALK | | | | | | PHOS,ALB,PROT TOTAL) | | | | | + +--------+ + + + | CBC ONLY | Urgent | 03/03/2008 | | Results for this | | | | 12:06 AM | | procedure are in the | | | | PST | | results section. | + +--------+ + + + | APTT (ACT. PART. | Urgent | 03/03/2008 | | Results for this | | THROMBO TIME) | | 12:06 AM | | procedure are in the | | | | PST | | results section. | + +--------+ + + + | APTT (ACT. PART. | Urgent | 03/03/2008 | | Results for this | | THROMBO TIME) | | 12:01 AM | | procedure are in the | | | | PST | | results section. | + +--------+ + + + | TEACHING PHYSICIAN | | 03/03/2008 | | Results for this | | | | 12:00 AM | | procedure are in the | | | | PST | | results section. | + +--------+ + + + | OPERATION RECORD | | 03/03/2008 | | Results for this | | | | 12:00 AM | | procedure are in the | | | | PST | | results section. | + +--------+ + + + | TYPE AND SCREEN | Urgent | 03/03/2008 | | Results for this | | | | 12:00 AM | | procedure are in the | | | | PST | | results section. | + +--------+ + + + documented in this encounter Results PROCEDURE NOTE (03/28/2015 2:08 PM PST)PROCEDURE NOTE (03/28/2015 2:08 PM PST)SPECIMEN MENG MCCARTNEY (03/07/2008 11:32 AM PST) + + + + + + | Component | Value | Ref Range | Performed | Pathologist | | | | | At | Signature | + + + + + + | SAMPLE | 3 vials CSF with 2ml | | [facility] | | | TYPE-ROUTIN | each | | DEPARTMENT | | | G | | | OF | | | | | | PATHOLOGY | | + + + + + + | TEST | held in micro hold | | [facility] | | | REQUESTED | freezer | | DEPARTMENT | | | | | | OF | | | | | | PATHOLOGY | | + + + + + + | SENT TO | Held in [facility] | | [facility] | | | | Receiving and | | DEPARTMENT | | | | Processing:Ext [phone] | | OF | | | | | | PATHOLOGY | | + + + + + + + + | Specimen | + + | | + + + + + + + | Performing | Address | City/State/Zipcode | Phone Number | | Organization | | | | + + + + + | [facility] DEPARTMENT OF | [address] | [place] [address] | | | PATHOLOGY | [address] | | | + + + + + | [facility] DEPARTMENT OF | [address] | [place] [address] | | | PATHOLOGY | [address] | | | + + + + + GRAM SMEAR ONLY, STAT (03/07/2008 11:32 AM PST) + + + + + + | Component | Value | Ref Range | Performed | Pathologist | | | | | At | Signature | + + + + + + | GRAM SMEAR | Rare White blood cells | | [facility] | [...] SOURCE BODY | Cerebrospinal Fluid | | [facility] | | | SITE [...] DEPARTMENT OF | [address] | [place] [address] | | | PATHOLOGY | [address] | | | + + + + + | [facility] DEPARTMENT OF | [address] | [place] [address] | | | PATHOLOGY | [address] | | | + + + + + PROTEIN, CSF (03/07/2008 11:32 AM PST) + +-------+ + + + | Component | Value | Ref Range | Performed | Pathologist | | | | | At | Signature | + +-------+ + + + | TOTAL | 42 | 15 - 45 mg/dL | [facility] [...] + + + + + | [facility] DEPARTMENT OF | [address] | [place] [address] | | | PATHOLOGY | [address] | | | + + + + + | [facility] DEPARTMENT OF | [address] | [place] [address] | | | PATHOLOGY | [address] | | | + + + + + GLUCOSE, CSF (03/07/2008 11:32 AM PST) + +-------+ + + + | Component | Value | Ref Range | Performed | Pathologist | | | | | At | Signature | + +-------+ + + + | GLUCOSE CSF | 55 | 40 - 70 mg/dL | [facility] [...] DEPARTMENT OF | [address] | [place] [address] | | | PATHOLOGY | [address] | | | + + + + + | [facility] DEPARTMENT OF | [address] | [place] [address] | | | PATHOLOGY | [address] | | | + + + + + CSF INFO PANEL (03/07/2008 11:32 AM PST) + + + + + [...] + + + + + | [facility] DEPARTMENT OF | [address] | [place] [address] | | | PATHOLOGY | [address] | | | + + + + + | [facility] DEPARTMENT OF | [address] | [place] [address] | | | PATHOLOGY | [address] | | | + + + + + CSF INFO PANEL (03/07/2008 11:32 AM PST) + + + + + [...] + + + + + | [facility] DEPARTMENT OF | [address] | [place] [address] | | | PATHOLOGY | [address] | | | + + + + + | [facility] DEPARTMENT OF | [address] | [place] [address] | | | PATHOLOGY | [address] | | | + + + + + CSF INFO PANEL (03/07/2008 11:32 AM PST) + + + + + [...] + + + | CSF TUBE | Tube 3 | | [facility] | | | NUMBER [...] + + + + + | [facility] | [address] | [place] [address] | | | PATHOLOGY | [address] | | | + + + + + | [facility] | [address] | [place] [address] | | | PATHOLOGY | [address] | | | + + + + + CULTURE, CSF BACTI (03/07/2008 11:32 AM PST) + + + + + [...] at | | | | | | [facility]. Culture: | | | | | | Final Report: No | | | | | | growth after 3 days. | | | | | | Final ReportComment: | | | | | | Test performed at [place] | | | | | | [facility] | | | | | | Laboratory. | | | | + + + + + + + + | Specimen | + + | Cerebrospinal fluid | + + + + + + + | Performing | Address | City/State/Zipcode | Phone Number | | Organization | | | | + + + + + | [facility] | [address] | [place] [address] | | | LAB-MICRO | | | | + + + + + PROTEIN, CSF (03/07/2008 11:32 AM PST) + + + + + [...] DEPARTMENT OF | [address] | [place] [address] | | | PATHOLOGY | [address] | | | + + + + + | [facility] DEPARTMENT OF | [address] | [place] [address] | | | PATHOLOGY | [address] | | | + + + + + GLUCOSE, CSF (03/07/2008 11:32 AM PST) + + + + + [...] + + + + + | [facility] | [address] | [place] [address] | | | PATHOLOGY | [address] | | | + + + + + | [facility] | [facility] | [place] [address] | | | PATHOLOGY | [address] | | | + + + + + CELL COUNT DIFF, CSF (03/07/2008 11:32 AM PST) + +-------+ + + + | Component | Value | Ref Range | Performed | Pathologist | | | | | At | Signature | + +-------+ + + + | CSF WBC | < 1 | <6 /cu mm | [facility] | | | | | | DEPARTMENT | | | | | | OF | | | | | | PATHOLOGY | | + +-------+ + + + | CSF RBC | 2 | /cu mm | [facility] | | | | | | DEPARTMENT | | | | | | OF | | | | | | PATHOLOGY | | + +-------+ + + + | DIFFERENTIA | 100 | | [facility] | | | L CSF | | | DEPARTMENT | | | | | | OF | | | | | | PATHOLOGY | | + +-------+ + + + | NEUTROPHIL( | 1 | <7 % | [facility] | | | CSF) | | | DEPARTMENT | | | | | | OF | | | | | | PATHOLOGY | | + +-------+ + + + | LYMPHOCYTES | 77 | 40 - 80 % | [facility] | | | (CSF) | | | DEPARTMENT | | | | | | OF | | | | | | PATHOLOGY | | + +-------+ + + + | MONOCYTES(C | 22 | 15 - 45 % | [facility] [...] | + + + + + | [facility] DEPARTMENT OF | [address] | [place] [address] | | | PATHOLOGY | [address] | | | + + + + + | [facility] DEPARTMENT OF | [address] | [place] [address] | | | PATHOLOGY | [address] | | | + + + + + MAGNESIUM, PLASMA (03/05/2008 12:30 AM PST) + +-------+ + + + | Component | Value | Ref Range | Performed | Pathologist | | | | | At | Signature | + +-------+ + + + | MAGNESIUM,P | 2.0 | 1.8 - 2.5 mg/dL | [facility] | | | LASMA | | | DEPARTMENT | | | [...] + + + + + | [facility] DEPARTMENT OF | [address] | [place] [address] | | | PATHOLOGY | [address] | | | + + + + + | [facility] | [address] | [place] [address] | | | PATHOLOGY | [address] | | | + + + + + PHOSPHORUS, PLASMA (03/05/2008 12:30 AM PST) + +-------+ + + + | Component | Value | Ref Range | Performed | Pathologist | | | | | At | Signature | + +-------+ + + + | PHOSPHORUS, | 4.4 [...] DEPARTMENT OF | [address] | [place] [address] | | | PATHOLOGY | [address] | | | + + + + + | [facility] DEPARTMENT | [address] | [place] [address] | | | PATHOLOGY | [address] | | | + + + + + VANCOMYCIN, TROUGH (03/05/2008 12:30 AM PST) + +-------+ + + + | Component | Value | Ref Range | Performed | Pathologist | | | | | At | Signature | + +-------+ + + + | VANCOMYCIN, | 14.7 | 5.0 - 15.0 | [facility] | | | TROUGH | | ug/mL | DEPARTMENT | | | | | | OF | | | | | | PATHOLOGY | | + +-------+ + + + + + | Specimen | + + | | + + + + + + + | Performing | Address | City/State/Zipcode | Phone Number | | Organization | | | | + + + + + | [facility] | [address] | [place] [address] | | | PATHOLOGY | [address] | | | + + + + + | [facility] | [address] | [place] [address] | | | PATHOLOGY | [address] | | | + + + + + PHOSPHORUS, PLASMA (03/05/2008 12:30 AM PST) + + + + + + | Component | Value | Ref Range | Performed | Pathologist | | | | | At | Signature | + + + + + + | PHOSPHORUS, | Combined. | 2.4 - 4.7 mg/dL | [facility] [...] + + + + + | [facility] DEPARTMENT OF | [address] | [place] [address] | | | PATHOLOGY | [address] | | | + + + + + | [facility] DEPARTMENT OF | [address] | [place] [address] | | | PATHOLOGY | [address] | | | + + + + + MAGNESIUM, PLASMA (03/05/2008 12:30 AM PST) + + + + + + | Component | Value | Ref Range | Performed | Pathologist | | | | | At | Signature | + + + + + + | MAGNESIUM,P | Combined. | 1.8 - 2.5 mg/dL | [facility] | | | LASMA | | | DEPARTMENT | | | [...] + + + + + | [facility] DEPARTMENT OF | [facility] | [place] [address] | | | PATHOLOGY | [address] | | | + + + + + | [facility] DEPARTMENT OF | [address] | [place] [address] | | | PATHOLOGY | [address] | | | + + + + + CBC ONLY (03/05/2008 12:30 AM PST) + + + + + + | Component | Value | Ref Range | Performed | Pathologist | | | | | At | Signature | + + + + + + | WHITE CELL | 9.5 | 4.4 - 11.0 K/cu | [facility] | | | COUNT | | mm | DEPARTMENT | | | | | | OF | | | | | | PATHOLOGY | | + + + + + + | RED CELL | 3.66 (L) | 4.00 - 5.20 | [facility] [...] + + + + | HEMATOCRIT | 33.6 (L) | 36.0 - 46.0 % | [facility] | | | | | | DEPARTMENT | | | | | | OF | | | | | | PATHOLOGY | | + + + + + + | MCV | 91.6 | 80.0 - 96.0 fL | [facility] | | | | | | DEPARTMENT | | | | | | OF | | | | | | PATHOLOGY | | + + + + + + | MCHC | 33.9 | 33.4 - 35.5 | [facility] | | | | | g/dL | DEPARTMENT | | | | | | OF | | | | | | PATHOLOGY | | + + + + + + | RDW | 12.7 | 11.5 - 15.0 % | [facility] | | | | | | DEPARTMENT | | | | | | OF | | | | | | PATHOLOGY | | + + + + + + | PLATELET | 388 | 150 - 400 K/cu | [facility] [...] + + + + + | [facility] DEPARTMENT OF | [address] | [place] [address] | | | PATHOLOGY | [address] | | | + + + + + | [facility] DEPARTMENT OF | [address] | [place] [address] | | | PATHOLOGY | [address] | | | + + + + + BASIC METABOLIC SET (NA, K, CL, TCO2, BUN, CR, GLU, CA) (03/05/2008 12:30 AM PST) + +---------+ + + + | Component | Value | Ref Range | Performed | Pathologist | | | | | At | Signature | + +---------+ + + + | GLUCOSE, | 84 | 60 - 99 mg/dL | [facility] [...] +---------+ + + + | CREATININE | 0.92 | 0.60 - 1.10 | [facility] | | | PLASMA | | mg/dL | DEPARTMENT | | | (LAB) | | | OF | | | | | | PATHOLOGY | | + +---------+ + + + | SODIUM, | 145 (H) | 134 - 143 | [facility] [...] + + + + + | [facility] DEPARTMENT OF | [address] | [place] [address] | | | PATHOLOGY | [address] | | | + + + + + | [facility] DEPARTMENT OF | [address] | [place] [address] | | | PATHOLOGY | [address] | | | + + + + + VANCOMYCIN, TROUGH (03/05/2008 12:30 AM PST) + + + + + + | Component | Value | Ref Range | Performed | Pathologist | | | | | At | Signature | + + + + + + | VANCOMYCIN, | Combined. | ug/mL | [facility] | | | TROUGH | | | DEPARTMENT | | | [...] + + + + + | [facility] DEPARTMENT OF | [address] | [place] [address] | | | PATHOLOGY | [address] | | | + + + + + | [facility] DEPARTMENT OF | [address] | [place] [address] | | | PATHOLOGY | [address] | | | + + + + + VANCOMYCIN, TROUGH (03/04/2008 1:24 AM PST) + +-------+ + + + | Component | Value | Ref Range | Performed | Pathologist | | | | | At | Signature | + +-------+ + + + | VANCOMYCIN, | 11.9 | 5.0 - 15.0 | [facility] | | | TROUGH | | ug/mL | DEPARTMENT | | | | | [...] + + + + + | [facility] DEPARTMENT OF | [address] | [place] [address] | | | PATHOLOGY | [address] | | | + + + + + | [facility] DEPARTMENT OF | [address] | [place] [address] | | | PATHOLOGY | [address] | | | + + + + + SPECIMEN ROUTING (03/03/2008 2:00 PM PST) + + + + + + | Component | Value | Ref Range | Performed | Pathologist | | | | | At | Signature | + + + + + + | SAMPLE | CSF, TV= 16mls (2 vials) | | [facility] | | | TYPE-ROUTIN | | | DEPARTMENT | | | G | | | OF | | | | | | PATHOLOGY | | + + + + + + | TEST | HOLD | | [facility] | | | REQUESTED | | | DEPARTMENT | | | | | | OF | | | | | | PATHOLOGY | | + + + + + + | SENT TO | [facility] | | [facility] | | | | Receiving and | | DEPARTMENT | | | | Processing:[phone] | | OF | | | | | | PATHOLOGY | | + + + + + + + + | Specimen | + + | | + + + + + + + | Performing | Address | City/State/Zipcode | Phone Number | | Organization | | | | + + + + + | [facility] DEPARTMENT | [address] | [place] [address] | | | PATHOLOGY | [address] | | | + + + + + | [facility] DEPARTMENT OF | [address] | [place] [address] | | | PATHOLOGY | [address] | | | + + + + + GRAM SMEAR ONLY, STAT (03/03/2008 1:56 PM PST) + + + + + + | Component | Value | Ref Range | Performed | Pathologist | | | | | At | Signature | + + + + + + | GRAM SMEAR | No organisms seen. | | [facility] | | | ONLY-[facility] | | | DEPARTMENT | | | [...] + + + + + | [facility] DEPARTMENT OF | [address] | [place] [address] | | | PATHOLOGY | [address] | | | + + + + + | [facility] DEPARTMENT OF | [address] | [place] [address] | | | PATHOLOGY | [address] | | | + + + + + PROTEIN, CSF (03/03/2008 1:56 PM PST) + +-------+ + + + | Component | Value | Ref Range | Performed | Pathologist | | | | | At | Signature | + +-------+ + + + | TOTAL | 26 | 15 - 45 mg/dL | [facility] | | | PROTEIN CSF | | [...] + + + + + | [facility] DEPARTMENT | [address] | [place] [address] | | | PATHOLOGY | [address] | | | + + + + + | [facility] DEPARTMENT OF | [address] | [place] [address] | | | PATHOLOGY | [address] | | | + + + + + GLUCOSE, CSF (03/03/2008 1:56 PM PST) + +-------+ + + + | Component | Value | Ref Range | Performed | Pathologist | | | | | At | Signature | + +-------+ + + + | GLUCOSE CSF | 62 | 40 - 70 mg/dL | [facility] [...] + | [facility] DEPARTMENT OF | [address] | [place] [address] | | | PATHOLOGY | [address] | | | + + + + + | [facility] DEPARTMENT OF | [address] | [place] [address] | | | PATHOLOGY | [address] | | | + + + + + CSF INFO PANEL (03/03/2008 1:56 PM PST) + + + + + [...] + + + | CSF TUBE | Tube 3 | | [facility] | | | NUMBER [...] + | [facility] DEPARTMENT OF | [address] | [place] [address] | | | PATHOLOGY | [address] | | | + + + + + | [facility] DEPARTMENT OF | [address] | [place] [address] | | | PATHOLOGY | [address] | | | + + + + + CSF INFO PANEL (03/03/2008 1:56 PM PST) + + + + + [...] DEPARTMENT OF | [address] | [place] [address] | | | PATHOLOGY | [address] | | | + + + + + | [facility] DEPARTMENT OF | [address] | [place] [address] | | | PATHOLOGY | [address] | | | + + + + + CSF INFO PANEL (03/03/2008 1:56 PM PST) + + + + + [...] + + + + + | [facility] DEPARTMENT OF | [address] | [place] [address] | | | PATHOLOGY | [address] | | | + + + + + | [facility] DEPARTMENT OF | [address] | [place] [address] | | | PATHOLOGY | [address] | | | + + + + + CULTURE, CSF BACTI (03/03/2008 1:56 PM PST) + + + + + [...] at | | | | | | [facility]. Culture: | | | | | | Final Report: No | | | | | | growth after 3 days. | | | | | | Final ReportComment: | | | | | | Test performed at [place] | | | | | | [facility] | | | | | | Laboratory. | | | | + + + + + + + + | Specimen | + + | Cerebrospinal fluid | + + + + + + + | Performing | Address | City/State/Zipcode | Phone Number | | Organization | | | | + + + + + | [facility] | [address] | [place] [address] | | | LAB-MICRO | | | | + + + + + PROTEIN, CSF (03/03/2008 1:56 PM PST) + + + + + [...] + | [facility] DEPARTMENT OF | [address] | [place] [address] | | | PATHOLOGY | [address] | | | + + + + + | [facility] DEPARTMENT OF | [address] | [place] [address] | | | PATHOLOGY | [address] | | | + + + + + GLUCOSE, CSF (03/03/2008 1:56 PM PST) + + + + + [...] + + + + + | [facility] DEPARTMENT OF | [address] | [place] [address] | | | PATHOLOGY | [address] | | | + + + + + | [facility] DEPARTMENT OF | [address] | [place] [address] | | | PATHOLOGY | [address] | | | + + + + + CELL COUNT DIFF, CSF (03/03/2008 1:56 PM PST) + +--------+ + + + | Component | Value | Ref Range | Performed | Pathologist | | | | | At | Signature | + +--------+ + + + | CSF WBC | < 1 | <6 /cu mm | [facility] | | | | | | DEPARTMENT | | | | | | OF | | | | | | PATHOLOGY | | + +--------+ + + + | CSF RBC | 62 | /cu mm | [facility] | | [...] | + +--------+ + + + | NEUTROPHIL( | 22 (H) | <7 % | [facility] | | | CSF) | | | DEPARTMENT | | | | | | OF | | | | | | PATHOLOGY | | + +--------+ + + + | LYMPHOCYTES | 63 | 40 - 80 % | [facility] | | | (CSF) | | | DEPARTMENT | | | | | | OF | | | | | | PATHOLOGY | | + +--------+ + + + | MONOCYTES(C | 14 (L) | 15 - 45 % | [facility] | | | SF) | | | DEPARTMENT | | | | | | OF | | | | | | PATHOLOGY | | + +--------+ + + + | EOSINOPHILS | 1 | % | [facility] | | | [...] + + + + + | [facility] | [address] | [place] [address] | | | PATHOLOGY | [address] | | | + + + + + | [facility] | [address] [place] [address] | [place] [address] | | | PATHOLOGY | [address] | | | + + + + + CULTURE, WOUND BACTI & GS (03/03/2008 11:35 AM PST) + + + + + + | Component | Value | Ref Range | Performed | Pathologist | | | | | At | Signature | + + + + + + | SOURCE BODY | Skin Abscess | | | | | SITE | | | | | + + + + + + | CULTURE | Wound Culture | | | | | RESULT | | | | | | | Source...............: | | | | | | Skin Abscess [facility] Gram | | | | | | Stain...........: Rare | | | | | | Squamous epithelial | | | | | | cells | | | | | | | | | | | | Rare PMN's | | | | | | | | | | | | Rare Gram | | | | | | positive cocci | | | | | | Culture: 1+ | | | | | | Methicillin resistant | | | | | | Staphylococcus aureus | | | | | | Final ID | | | | | | | | | | | | MRSA Cefazolin | | | | | | R | | | | | | Clindamycin | | | | | | [...] Final | | | | | | Report Resulted: | | | | | | 03/05/08 | | | | | | [facility] ([facility]) | | | | | | [place] | | | | | | [facility] | | | | | | [address] | | | | | | [place], | | | | | | [place] [id number]: | | | | | | Test performed at [place] | | | | | | [facility] | | | | | | Laboratory. | | | | + + + + + + + + | Specimen | + + | Abscess - Skin | + + + + + + + | Performing | Address | City/State/Zipcode | Phone Number | | Organization | | | | + + + + + | [facility] | [address] | [place] [address] | | | LAB-MICRO | | | | + + + + + UASAL ONLY (03/03/2008 1:56 AM PST) + + + + + + | Component | Value | Ref Range | Performed | Pathologist | | | | | At | Signature | + + + + + + | COLOR(UR) | Yellow | | [facility] | | | | | | DEPARTMENT | | | | | | OF | | | | | | PATHOLOGY | | + + + + + + | APPEARANCE | Clear | | [facility] | | | | | | DEPARTMENT | | | | | | OF | | | | | | PATHOLOGY | | + + + + + + | GLUCOSE(UR) | Negative | mg/dL | [facility] | | | | | | DEPARTMENT | | | | | | OF | | | | | | PATHOLOGY | | + + + + + + | BILIRUBIN | Negative | | [facility] | | | | | | DEPARTMENT | | | | | | OF | | | | | | PATHOLOGY | | + + + + + + | KETONES | Negative | mg/dL | [facility] | | | | | | DEPARTMENT | | | | | | OF | | | | | | PATHOLOGY | | + + + + + + | SPECIFIC | 1.020 | 1.005 - 1.030 | [facility] | | | GRAVITY | | | DEPARTMENT | | | | | | OF | | | | | | PATHOLOGY | | + + + + + + | BLOOD | Negative | | [facility] | | | | | | DEPARTMENT | | | | | | OF | | | | | | PATHOLOGY | | + + + + + + | PH(UR) | 5.5 | 5.0 - 8.0 | [facility] | | | | | | DEPARTMENT | | | | | | OF | | | | | | PATHOLOGY | | + + + + + + | PROTEIN(LAB | Negative | mg/dL | [facility] | | | ) | | | DEPARTMENT | | | | | | OF | | | | | | PATHOLOGY | | + + + + + + | UROBILINOGE | 0.2 | 0 - 0.2 LARRY | [facility] | | | N | | UNITS | DEPARTMENT | | | | | | OF | | | | | | PATHOLOGY | | + + + + + + | NITRITES | Positive | Negative | [facility] | | | | | | DEPARTMENT | | | | | | OF | | | | | | PATHOLOGY | | + + + + + + | LEUKOCYTE | Negative | Negative | [facility] | | | ESTERASE | | | DEPARTMENT | | | [...] + + + + + | [facility] | [facility] [facility] | [place] [address] | | | PATHOLOGY | [address] | | | + + + + + | [facility] | [facility] [facility] | [place] [address] | | | PATHOLOGY | [address] | | | + + + + + URINE SCREEN FOR CULTURE (03/03/2008 1:56 AM PST) + + + + + + | Component | Value | Ref Range | Performed | Pathologist | | | | | At | Signature | + + + + + + | CULT, URINE | Positive for Nitrite | | [facility] | | | SCREEN | and/or Leukocyte | | DEPARTMENT | | | | Esterase.Specimen sent | | OF | | | | for culture. | | PATHOLOGY | | + + + + + + + + | Specimen | + + | | + + + + + + + | Performing | Address | City/State/Zipcode | Phone Number | | Organization | | | | + + + + + | [facility] | [address] | [place] [address] | | | PATHOLOGY | [address] | | | + + + + + | [facility] | [address] | [place] [address] | | | PATHOLOGY | [address] | | | + + + + + URINE SCREEN FOR CULTURE (03/03/2008 1:56 AM PST) + + + + + + | Component | Value | Ref Range | Performed | Pathologist | | | | | At | Signature | + + + + + + | CULT, URINE | Combined. | | [facility] | | | SCREEN | | | DEPARTMENT | | | | | | OF | | | | | | PATHOLOGY | | + + + + + + + + | Specimen | + + | Urine - Urine | + + + + + + + | Performing | Address | City/State/Zipcode | Phone Number | | Organization | | | | + + + + + | [facility] DEPARTMENT OF | [address] | [place] [address] | | | PATHOLOGY | [address] | | | + + + + + | [facility] DEPARTMENT OF | [address] | [place] [address] | | | PATHOLOGY | [address] | | | + + + + + URINE, MICROSCOPIC EXAM (03/03/2008 1:56 AM PST) + +-------+ + + + | Component | Value | Ref Range | Performed | Pathologist | | | | | At | Signature | + +-------+ + + + | SQUAMOUS | None | /hpf | [facility] | | | EPITHELIAL | | | DEPARTMENT | | | | | | OF | | | | | | PATHOLOGY | | + +-------+ + + + | NON-SQUAMOU | None | /hpf | [facility] | | | S EPITH | | | DEPARTMENT | | | | | | OF | | | | | | PATHOLOGY | | + +-------+ + + + | RED CELLS | None | 0 - 3 /hpf | [facility] | | | | | | DEPARTMENT | | | | | | OF | | | | | | PATHOLOGY | | + +-------+ + + + | WHITE CELLS | 1-5 | 0 - 5 /hpf | [facility] | | | | | | DEPARTMENT | | | | | | OF | | | | | | PATHOLOGY | | + +-------+ + + + | BACTERIA | Few | /hpf | [facility] | | | | | | DEPARTMENT | | | | | | OF | | | | | | PATHOLOGY | | + +-------+ + + + | MUCOUS | None | /hpf | [facility] | | | | | | DEPARTMENT | | | | | | OF | | | | | | PATHOLOGY | | + +-------+ + + + | HYALINE | None | 0 - 1 /lpf | [facility] | | | CASTS | | | DEPARTMENT | | | | | | OF | | | | | | PATHOLOGY | | + +-------+ + + + | GRANULAR | None | /lpf | [facility] | | | CASTS | | | DEPARTMENT | | | | | | OF | | | | | | PATHOLOGY | | + +-------+ + + + | CELLULAR | None | /lpf | [facility] | | | CASTS | | | DEPARTMENT | | | | | | OF | | | | | | PATHOLOGY | | + +-------+ + + + | AMORPHOUS | None | /hpf | [facility] | | | CRYSTALS | | | DEPARTMENT | | | | | | OF | | | | | | PATHOLOGY | | + +-------+ + + + | CALCIUM | None | /hpf | [facility] | | | OXALATE | | | DEPARTMENT | | | [place] | | | OF | | | | | | PATHOLOGY | | + +-------+ + + + | URIC ACID | None | /hpf | [facility] | | | CRYSTALS | | | DEPARTMENT | | | | | | OF | | | | | | PATHOLOGY | | + +-------+ + + + | TRIPLE P04 | None | /hpf | [facility] | | | CRYSTALS | | | DEPARTMENT | | | | | | OF | | | | | | PATHOLOGY | | + +-------+ + + + | YEAST (LAB) | None | /hpf | [facility] | | | | | | DEPARTMENT | | | | | | OF | | | | | | PATHOLOGY | | + +-------+ + + + | TRICHOMONAS | None | /hpf | [facility] | | | | | | DEPARTMENT | | | | | | OF | | | | | | PATHOLOGY | | + +-------+ + + + + + | Specimen | + + | Urine - Bladder | + + + + + + + | Performing | Address | City/State/Zipcode | Phone Number | | Organization | | | | + + + + + | [facility] | [address] | [place] [address] | | | PATHOLOGY | [address] | | | + + + + + | [facility] | [address] | [place] [address] | | | PATHOLOGY | [address] | | | + + + + + CULTURE, URINE BACTI (03/03/2008 1:55 AM PST) + + + + + + | Component | Value | Ref Range | Performed | Pathologist | | | | | At | Signature | + + + + + + | SOURCE BODY | Clean catch | | | | | SITE | | | | | + + + + + + | CULTURE | Urine Culture | | | | | RESULT | | | | | | | Source...............: | | | | | | Clean catch | | | | | | Culture: Final | | | | | | Report: No growth (< | | | | | | 1,000 col/ml) after 24 | | | | | | hours Final | | | | | | Report Resulted: | | | | | | 03/05/08 | | | | | | [facility] ([facility]) | | | | | | [place] | | | | | | [facility] | | | | | | [address] [address] [facility] | | | | | | [place], | | | | | | [place] [id number]: | | | | | | Test performed at [place] | | | | | | [facility] | | | | | | Laboratory. | | | | + + + + + + + + | Specimen | + + | | + + + + + + + | Performing | Address | City/State/Zipcode | Phone Number | | Organization | | | | + + + + + | [facility] | [address] | [place] [address] | | | LAB-MICRO | | | | + + + + + SEDIMENTATION RATE (03/03/2008 1:55 AM PST) + +--------+ + + + | Component | Value | Ref Range | Performed | Pathologist | | | | | At | Signature | + +--------+ + + + | SEDIMENTATI | 62 (H) | <31 mm/hr | [facility] | | | ON RATE | | | DEPARTMENT | | | [...] + + + + + | [facility] | [address] | [place] [address] | | | PATHOLOGY | [address] | | | + + + + + | [facility] | [facility] [address] | [place] [address] | | | PATHOLOGY | [address] | | | + + + + + SAL RAHMAN (03/03/2008 1:55 AM PST) + + + + + + | Component | Value | Ref Range | Performed | Pathologist | | | | | At | Signature | + + + + + + | COLOR(UR) | Combined. | | [facility] | | | | | | DEPARTMENT | | | | | | OF | | | | | | PATHOLOGY | | + + + + + + | APPEARANCE | Combined. | | [facility] | | | | | | DEPARTMENT | | | | | | OF | | | | | | PATHOLOGY | | + + + + + + | GLUCOSE(UR) | Combined. | mg/dL | [facility] | | | | | | DEPARTMENT | | | | | | OF | | | | | | PATHOLOGY | | + + + + + + | BILIRUBIN | Combined. | | [facility] | | | | | | DEPARTMENT | | | | | | OF | | | | | | PATHOLOGY | | + + + + + + | KETONES | Combined. | mg/dL | [facility] | | | | | | DEPARTMENT | | | | | | OF | | | | | | PATHOLOGY | | + + + + + + | SPECIFIC | Combined. | 1.005 - 1.030 | [facility] | | | GRAVITY | | | DEPARTMENT | | | | | | OF | | | | | | PATHOLOGY | | + + + + + + | BLOOD | Combined. | | [facility] | | | | | | DEPARTMENT | | | | | | OF | | | | | | PATHOLOGY | | + + + + + + | PH(UR) | Combined. | 5.0 - 8.0 | [facility] | | | | | | DEPARTMENT | | | | | | OF | | | | | | PATHOLOGY | | + + + + + + | PROTEIN(LAB | Combined. | mg/dL | [facility] | | | ) | | | DEPARTMENT | | | | | | OF | | | | | | PATHOLOGY | | + + + + + + | UROBILINOGE | Combined. | 0 - 0.2 LARRY | [facility] | | | N | | UNITS | DEPARTMENT | | | | | | OF | | | | | | PATHOLOGY | | + + + + + + | NITRITES | Combined. | Negative | [facility] | | | | | | DEPARTMENT | | | | | | OF | | | | | | PATHOLOGY | | + + + + + + | LEUKOCYTE | Combined. | Negative | [facility] | | | ESTERASE | | | DEPARTMENT | | | | | | OF | | | | | | PATHOLOGY | | + + + + + + + + | Specimen | + + | Urine - Bladder | + + + + + + + | Performing | Address | City/State/Zipcode | Phone Number | | Organization | | | | + + + + + | [facility] | [address] | [place] [address] | | | PATHOLOGY | [address] | | | + + + + + | [facility] [place] | [address] [place] [address] [address] | [place] [address] | | | PATHOLOGY | [address] | | | + + + + + CT HEAD WWO CONTRAST (03/03/2008 12:15 AM PST) + + + + + + | Component | Value | Ref Range | Performed | Pathologist | | | | | At | Signature | + + + + + + | CT HEAD WWO | CT head with and without | | | | | CONTRAST | intravenous contrast | | | | | | 03/03/2008.Clinical | | | | | | Information: Evaluate | | | | | | postoperative | | | | | | infection.Comparisons: | | | | | | CT head without | | | | | | intravenous contrast | | | | | | 10/29/2007.Findings:Interv | | | | | | al removal of | | | | | | ventricular catheter. | | | | | | Redemonstration of | | | | | | rightfrontotemporal | | | | | | craniotomy with | | | | | | associated postsurgical | | | | | | changes andaneurysm clip | | | | | | in the right parasellar | | | | | | region. A new area | | | | | | ofrelatively well | | | | | | defined low attenuation | | | | | | is identified in the | | | | | | rightfrontal lobe in the | | | | | | region of the prior | | | | | | ventricular catheter. | | | | | | Stableappearance of | | | | | | low attenuation in the | | | | | | left frontal lobe. No | | | | | | evidenceof acute | | | | | | intracranial hemorrhage. | | | | | | No shift of the | | | | | | midlinestructures.Marked | | | | | | interval increase in | | | | | | size of the lateral, | | | | | | third, and | | | | | | fourthventricles with | | | | | | new periventricular low | | | | | | attenuation consistent | | | | | | withtransependymal CSF | | | | | | flow. A focus of gas | | | | | | is identified within | | | | | | theleft lateral | | | | | | ventricle.There is a | | | | | | multiloculated low | | | | | | attenuation collection | | | | | | in the leftposterior | | | | | | neck soft tissues which | | | | | | demonstrates irregular | | | | | | peripheralrim | | | | | | enhancement and measures | | | | | | approximately 2.6 x 3.2 | | | | | | cm in greatestaxial | | | | | | dimensions.Impression:1. | | | | | | Interval removal of | | | | | | ventricular catheter. | | | | | | Marked | | | | | | intervalenlargement of | | | | | | the ventricular system | | | | | | with new periventricular | | | | | | lowattenuation | | | | | | consistent with | | | | | | transependymal CSF | | | | | | flow.2. New area of | | | | | | low attenuation in the | | | | | | right frontal lobe in | | | | | | theregion of the prior | | | | | | ventricular catheter. | | | | | | Stable area of | | | | | | lowattenuation in the | | | | | | left frontal lobe.3. | | | | | | Multiloculated low | | | | | | attenuation collection | | | | | | with irregularperipheral | | | | | | rim enhancement in the | | | | | | left posterior neck soft | | | | | | tissues.Finding is | | | | | | concerning for an | | | | | | abscess collection.I | | | | | | have personally viewed | | | | | | this procedure/exam and | | | | | | reviewed this | | | | | | report.Author: | | | | | | Narinder BUIRev | | | | | | iewer: FRANCESCA Kasper | | | | | | Narinder LANDISSTATUS FINAL / | | | | | | Dr. FRANCESCA Kasper | | | | | | GREGORY PENDING | | | | | | FINAL APPROVAL / | | | | | | DENIZ GAINES | | | | + + + + + + + + | Specimen | + + | | + + + +---------+ + + | Performing | Address | City/State/Zipcode | Phone Number | | Organization | | | | + +---------+ + + | [facility] DEPARTMENT OF | | | | | RADIOLOGY | | | | + +---------+ + + APTT (ACT. PART. THROMBO TIME) (03/03/2008 12:06 AM PST) + + + + + + | Component | Value | Ref Range | Performed | Pathologist | | | | | At | Signature | + + + + + + | APTT | 31.3Comment: | 26.0 - 36.0 | [facility] | | | | APTT Therapeutic Range | seconds | DEPARTMENT | | | | | | OF | | | | (75-120) | | PATHOLOGY | | | | sec | | | | | | Heparin levels of | | | | | | 0.35-0.7 U/mL | | | | + + + + + + + + | Specimen | + + | | + + + + + + + | Performing | Address | City/State/Zipcode | Phone Number | | Organization | | | | + + + + + | [facility] | [address] | [place] [address] | | | PATHOLOGY | [address] | | | + + + + + | [facility] | [address] | [place] [address] | | | PATHOLOGY | [address] | | | + + + + + INR (03/03/2008 12:06 AM PST) + + + + + + | Component | Value | Ref Range | Performed | Pathologist | | | | | At | Signature | + + + + + + | INR | 1.05Comment: | 0.90 - 1.20 INR | [facility] | | | | INR Therapeutic ranges | | DEPARTMENT | | | | for full | | OF | | | | anticoagulation: | | PATHOLOGY | | | | INR for Venous | | | | | | Thromboembolism | | | | | | (2.0-3.0) | | | | | | INR INR for most | | | | | | patients with mech. | | | | | | valves (2.5-3.5) | | | | | | INR | | | | + + + + + + + + | Specimen | + + | Blood - Blood | + + + + + + + | Performing | Address | City/State/Zipcode | Phone Number | | Organization | | | | + + + + + | [facility] DEPARTMENT OF | [address] | [place] [address] | | | PATHOLOGY | [address] | | | + + + + + | [facility] DEPARTMENT OF | [address] | [place] [address] | | | PATHOLOGY | [address] | | | + + + + + CBC ONLY (03/03/2008 12:06 AM PST) + + + + + + | Component | Value | Ref Range | Performed | Pathologist | | | | | At | Signature | + + + + + + | WHITE CELL | 11.4 (H) | 4.4 - 11.0 K/cu | [facility] | | | COUNT | | mm | DEPARTMENT | | | | | | OF | | | | | | PATHOLOGY | | + + + + + + | RED CELL | 4.24 | 4.00 - 5.20 | [facility] | | | COUNT | | M/cu mm | DEPARTMENT | | | | | | OF | | | | | | PATHOLOGY | | + + + + + + | HEMOGLOBIN | 13.0 | 12.0 - 16.0 | [facility] | [...] + + + + | MCV | 90.8 | 80.0 - 96.0 fL | [facility] | | | | | | DEPARTMENT | | | | | | OF | | | | | | PATHOLOGY | | + + + + + + | MCHC | 33.8 | 33.4 - 35.5 | [facility] | | | | | g/dL | DEPARTMENT | | | | | | OF | | | | | | PATHOLOGY | | + + + + + + | RDW | 12.7 | 11.5 - 15.0 % | [facility] | | | | | | DEPARTMENT | | | | | | OF | | | | | | PATHOLOGY | | + + + + + + | PLATELET | 405 (H) | 150 - 400 K/cu | [facility] [...] + + + + + | [facility] | [address] | [place] [address] | | | PATHOLOGY | [address] | | | + + + + + | [facility] | [address] | [place] [address] | | | PATHOLOGY | [address] | | | + + + + + COMPLETE METABOLIC SET (NA,K,CL,CO2,BUN,CREAT,GLUC,CA,AST,ALT,BILI TOTAL,ALK PHOS,ALB,PROT TOTAL) (03/03/2008 12:06 AM PST) + +---------+ + + + | Component | Value | Ref Range | Performed | Pathologist | | | | | At | Signature | + +---------+ + + + | GLUCOSE, | 115 (H) | 60 - 99 mg/dL | [facility] | | | PLASMA | | | DEPARTMENT | | | (LAB) | | | OF | | | | | | PATHOLOGY | | + +---------+ + + + | BUN, PLASMA | 22 (H) | 6 - 20 mg/dL | [facility] | | | (LAB) | | | DEPARTMENT | | | | | | OF | | | | | | PATHOLOGY | | + +---------+ + + + | CREATININE | 0.73 | 0.60 - 1.10 | [facility] | | | PLASMA | | mg/dL | DEPARTMENT | | | (LAB) | | | OF | | | | | | PATHOLOGY | | + +---------+ + + + | TOTAL | 7.4 | 6.1 - 7.9 g/dL | [facility] | | | PROTEIN, | | | DEPARTMENT | | | PLASMA | | | OF | | | (LAB) | | | PATHOLOGY | | + +---------+ + + + | ALBUMIN, | 3.1 (L) | 3.5 - 4.7 g/dL | [facility] | | | PLASMA | | | DEPARTMENT | | | (LAB) | | | OF | | | | | | PATHOLOGY | | + +---------+ + + + | CALCIUM, | 9.1 | 8.6 - 10.2 | [facility] | | | PLASMA | | mg/dL | DEPARTMENT | | | (LAB) | | | OF | | | | | | PATHOLOGY | | + +---------+ + + + | BILIRUBIN | 0.7 | 0.3 - 1.2 mg/dL | [facility] | | | TOTAL | | | DEPARTMENT | | | | | | OF | | | | | | PATHOLOGY | | + +---------+ + + + | ALK PHOS | 97 | 42 - 98 U/L | [facility] | | | | | | DEPARTMENT | | | | | | OF | | | | | | PATHOLOGY | | + +---------+ + + + | AST(SGOT) | 12 (L) | 15 - 41 U/L | [facility] | | | | | | DEPARTMENT | | | | | | OF | | | | | | PATHOLOGY | | + +---------+ + + + | SODIUM, | 138 | 134 - 143 | [facility] | | | PLASMA | | mmol/L | DEPARTMENT | | | (LAB) | | | OF | | | | | | PATHOLOGY | | + +---------+ + + + | POTASSIUM, | 3.6 | 3.4 - 5.0 | [facility] | | | PLASMA | | mmol/L | DEPARTMENT | | | (LAB) | | | OF | | | | | | PATHOLOGY | | + +---------+ + + + | CHLORIDE, | 102 | 97 - 108 mmol/L | [facility] | | | PLASMA | | | DEPARTMENT | | | (LAB) | | | OF | | | | | | PATHOLOGY | | + +---------+ + + + | TOTAL CO2, | 27 | 23 - 31 mmol/L | [facility] | | | PLASMA | | | DEPARTMENT | | | (LAB) | | | OF | | | | | | PATHOLOGY | | + +---------+ + + + | ALT (SGPT) | 14 | 13 - 48 U/L | [facility] | | | | | [...] DEPARTMENT OF | [address] | [place] [address] | | | PATHOLOGY | [address] | | | + + + + + | [facility] DEPARTMENT OF | [address] | [place] [address] | | | PATHOLOGY | [address] | | | + + + + + APTT (ACT. PART. THROMBO TIME) (03/03/2008 12:01 AM PST) + + + + + + | Component | Value | Ref Range | Performed | Pathologist | | | | | At | Signature | + + + + + + | APTT | Combined. | 26.0 - 36.0 | [facility] | | | | | seconds | DEPARTMENT | | | | | [...] + + + + + | [facility] | [address] | [place] [address] | | | PATHOLOGY | [address] | | | + + + + + | [facility] | [address] [place] [address] | [place] [address] | | | PATHOLOGY | [address] | | | + + + + + TEACHING PHYSICIAN (03/03/2008 12:00 AM PST) + + + | Narrative | Performed At | + + + | [id number] | | | [id number] | | | [address] [id number] | | | Date: 03/03/2008 Attending Surgeon: | | | Peter Urbina M.D. Electrical Helper(s): | | | [place] Landeros M.D. Preoperative Diagnosis(es): | | | Neck abscess. Postoperative Diagnosis(es): Neck abscess. | | | Procedures Performed: Incision and drainage of abscess. This | | | is Dr. Urbina dictating to certify I was present for all critical | | | portions of the case. Please addend this to the operative note by | | | Dr. Landeros. Peter Urbina M.D. KL / HS | | | [id number] / [id number] / [id number] / | | | | | + + + + + | Procedure Note | + + | Peter Urbina MD - 03/03/2008 12:00 AM PST [id number] | | [id number] [facility] | | [id number] Date: 03/03/2008 Attending Surgeon: Peter | | Narinder Urbina Electrical Helper(s): [place] Landeros M.D. Preoperative | | Diagnosis(es):Neck abscess. Postoperative Diagnosis(es):Neck abscess. Procedures | | Performed:Incision and drainage of abscess. This is Dr. Urbina dictating to certify I was | | present for all criticalportions of the case. Please addend this to the operative note | | by . Peter Urbina M.D. LEIGHANN / [id number] / [id number] / [id number] / T: | | 03/04/2008 | | | | | | | |Electrical Helper(s): Galileo Landeros M.D. | | | | | |Preoperative Diagnosis(es): | |Neck abscess. | | | | | |Postoperative Diagnosis(es): | |Neck abscess. | | | | | |Procedures Performed: | |Incision and drainage of abscess. | | | | | |This is Dr. Urbina dictating to certify I was present for all critical | |portions of the case. Please addend this to the operative note by Dr. Tamar Franco. | | | | | | | | | | | | | | | | | |Peter Urbina M.D. | | | | | |KL / HS | |[id number] / [id number] / [id number] / | | | | | | | | | | | | | | | | | | | | | + + OPERATION RECORD (03/03/2008 12:00 AM PST) + + + | Narrative | Performed At | + + + | [id number] | | | [id number] | | | [place] [address] [id number] Date: | | | 03/03/2008 Attending Surgeon: | | | Peter Urbina M.D. Electrical Helper(s): | | | [place] Landeros M.D. Preoperative Diagnosis(es): | | | Left neck skin abscess. Postoperative Diagnosis(es): Left | | | neck skin abscess. Procedures Performed: Incision and drainage | | | of the neck skin abscess on the left. Estimated Blood Loss: 5 | | | cc. Complications: None. Specimen: Abscess fluid and | | | wound swab for Gram's stain and culture. 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 The lump was erythematous, swollen, and indurated with | | | embossed skin abscess. Therefore, she was indicated for bed side | | | incision and drainage of this abscess. Procedure in Detail: | | | The patient was identified and positioned in the proper position. | | | She was given 1 mg of Versed and 100 fentanyl for a conscious | | | sedation in the ICU. After clean and proper draping of this abscess | | | in the usual sterile fashion, I used an 18-gauge syringe, | | | aspirated some abscess fluid from its pocket. Then, I used a #15 | | | blade, made a transverse incision over the skin abscess. Using a | | | pair of mosquitoes, I probed the inside of the abscess and probed | | | down the loculated pockets. All the abscess fluid was adequately | | | drained. Then, the wound was copiously irrigated with sterile | | | saline. Then, the abscess cavity was packed with sterile Nu Gauze. | | | The skin was covered with a dry sterile 4 x 4 gauze. The patient | | | tolerated the procedure very well. There were no complications. | | | Dr. Urbina was present in the critical portions of this procedure. | | | Galileo Landeros M.D. Peter Urbina, | | | Narinder / ELINA [id number] / [id number] / [id number] / T: | | | 03/03/2008 | | + + + + + | Procedure Note | + + | Galileo Landeros MD - 03/03/2008 12:00 AM PST [id number] | | [id number] [facility] | | [id number] Date: 03/03/2008 Attending Surgeon: Peter | | Narinder Urbina Electrical Helper(s): [place] Landeros M.D. Preoperative | | Diagnosis(es):Left neck skin abscess. Postoperative Diagnosis(es):Left neck skin | | abscess. Procedures Performed:Incision and drainage of the neck skin abscess on the | | left. Estimated Blood Loss:5 cc. Complications:None. Specimen:Abscess fluid and wound | | swab for Gram's stain and culture. Indication:The patient is a 58-year-old female who | | is status post OWEN aneurysmclipping in September 2007, presented to the emergency room with | | intermittentheadache and also a swollen lump in the left side of her neck. The lumpwas | | erythematous, swollen, and indurated with embossed skin abscess.Therefore, she was | | indicated for bed side incision and drainage of thisabscess. Procedure in Detail:The | | patient was identified and positioned in the proper position. She wasgiven 1 mg of | | Versed and 100 fentanyl for a conscious sedation in the ICU.After clean and proper | | draping of this abscess in the usual sterilefashion, I used an 18-gauge syringe, | | aspirated some abscess fluid from itspocket. Then, I used a #15 blade, made a | | transverse incision over the skinabscess. Using a pair of mosquitoes, I probed the | | inside of the abscessand probed down the loculated pockets. All the abscess fluid | | wasadequately drained. Then, the wound was copiously irrigated with sterilesaline. | | Then, the abscess cavity was packed with sterile Nu Gauze. Theskin was covered with a | | dry sterile 4 x 4 gauze. The patient tolerated theprocedure very well. There were no | | complications. Dr. Urbina was present inthe critical portions of this procedure. | | Narinder Kay M.D. HS / [id number] / [id number] / [id number] / T: | | 03/03/2008 | | | |Procedures Performed: | |Incision and drainage of the neck skin abscess on the left. | | | | | |Estimated Blood Loss: | |5 cc. | | | | | |Complications: | |None. | | | | | |Specimen: | |Abscess fluid and wound swab for Gram's stain and culture. | | | | | |Indication: | |The patient is a 58-year-old female who is status post OWEN aneurysm | |clipping in September 2007, presented to the emergency room with intermittent | |headache and also a swollen lump in the left side of her neck. The lump | |was erythematous, swollen, and indurated with embossed skin abscess. | |Therefore, she was indicated for bed side incision and drainage of this | |abscess. | | | | | |Procedure in Detail: | |The patient was identified and positioned in the proper position. She was | |given 1 mg of Versed and 100 fentanyl for a conscious sedation in the ICU. | |After clean and proper draping of this abscess in the usual sterile | |fashion, I used an 18-gauge syringe, aspirated some abscess fluid from its | |pocket. Then, I used a #15 blade, made a transverse incision over the skin | |abscess. Using a pair of mosquitoes, I probed the inside of the abscess | |and probed down the loculated pockets. All the abscess fluid was | |adequately drained. Then, the wound was copiously irrigated with sterile | |saline. Then, the abscess cavity was packed with sterile Nu Gauze. The | |skin was covered with a dry sterile 4 x 4 gauze. The patient tolerated the | |procedure very well. There were no complications. Dr. Urbina was present in | |the critical portions of this procedure. | | | | | | | | | | | | | | | | | |Galileo Landeros M.D. | | | | | | | | | | | | | |Peter Urbina M.D. | | | | | |HS / HS | |[id number] / [id number] / [id number] / | | | | | | | | | | | | | | | | | | | | | + + TYPE AND SCREEN (03/03/2008 12:00 AM PST) + + + + + + | Component | Value | Ref Range | Performed | Pathologist | | | | | At | Signature | + + + + + + | ABO GROUP | O | | [facility] | | | | | | DEPARTMENT | | | | | | OF | | | | | | PATHOLOGY | | + + + + + + | RH TYPE | Negative | | [facility] | | | | | | DEPARTMENT | | | | | | OF | | | | | | PATHOLOGY | | + + + + + + | Antibody | Negative | | [facility] | | | Screen | | | DEPARTMENT | | | [...] DEPARTMENT OF | [address] | [place], [place] [address] | | | PATHOLOGY | [address] | | | + + + + + | [facility] | [address] | [place] [address] | | | PATHOLOGY | [address] | | | + + + + + documented in this encounter Visit Diagnoses + + | Diagnosis | + + | Communicating hydrocephalus (HCC) Communicating hydrocephalus | + + documented in this encounter Administered Medications + +--------+ +--------+------+------+ | Medication Order | MAR | Action | Dose | Rate | Site | | | Action | Date | | | | + +--------+ +--------+------+------+ | acetaminophen (aka TYLENOL) | Given | 03/08/19 | 650 mg | | | | tablet 325-650 mg 325-650 mg, | | 09 2:54 | | | | | oral, EVERY 6 HOURS NEEDED, | | PM PST | | | | | Starting 03/03/08 at 0005, | | | | | | | Until 03/08/08 at 2209, mild | | | | | | | pain, fever | | | | | | + +--------+ +--------+------+------+ +-------+ +--------+---+---+ | Given | 03/08/19 | 650 mg | | | | | 09 8:06 | | | | | | AM PST | | | | +-------+ +--------+---+---+ | Given | 03/07/19 | 650 mg | | | | | 09 8:30 | | | | | | AM PST | | | | +-------+ +--------+---+---+ +---+---+ | | | +---+---+ + +-------+ +-----+---+---+ | cefTRIAXone (aka ROCEPHIN) IV 1 | Given | 03/04/19 | 1 g | | | | g 1 g, intravenous, EVERY 24 | | 09 12:15 | | | | | HOURS, 3 doses, First dose on Mon | | PM PST | | | | | 03/04/08 at 1215, Last dose on | | | | | | | 03/06/08 at 1215 | | | | | | + +-------+ +-----+---+---+ +---+---+ | | | +---+---+ + +-------+ +--------+---+---+ | docusate sodium (aka COLACE) | Given | 03/07/19 | 100 mg | | | | capsule 100 mg 100 mg, oral, | | 09 9:00 | | | | | TWICE DAILY, First dose on Mon | | AM PST | | | | | 03/04/08 at 1300, Until | | | | | | | Discontinued | | | | | | + +-------+ +--------+---+---+ +-------+ +--------+---+---+ | Given | 03/06/19 | 100 mg | | | | | 09 9:00 | | | | | | PM PST | | | | +-------+ +--------+---+---+ | Given | 03/06/19 | 100 mg | | | | | 09 9:00 | | | | | | AM PST | | | | +-------+ +--------+---+---+ +---+---+ | | | +---+---+ + +-------+ +--------+---+---+ | doxycycline hyclate (aka | Given | 03/08/19 | 100 mg | | | | VIBRA-TABS) tablet 100 mg 100 | | 09 9:00 | | | | | mg, oral, TWICE DAILY, 20 doses, | | AM PST | | | | | First dose on Tue03/05/08 at | | | | | | | 2100, Last dose on Tue03/15/08 at | | | | | | | 0900 | | | | | | + +-------+ +--------+---+---+ +-------+ +--------+---+---+ | Given | 03/07/19 | 100 mg | | | | | 09 9:00 | | | | | | PM PST | | | | +-------+ +--------+---+---+ | Given | 03/07/19 | 100 mg | | | | | 09 9:00 | | | | | | AM PST | | | | +-------+ +--------+---+---+ +---+---+ | | | +---+---+ + +-------+ +---------+---+---+ | fentanyl (aka SUBLIMAZE) | Given | 03/06/19 | 100 mcg | | | | injection 100 mcg 100 mcg, | | 09 5:00 | | | | | intravenous, ONCE, 1 dose, Wed | | PM PST | | | | | 03/06/08 at 1700 | | | | | | + +-------+ +---------+---+---+ +---+---+ | | | +---+---+ + +-------+ +--------+---+---+ | fentanyl (aka SUBLIMAZE) | Given | 03/07/19 | 50 mcg | | | | injection 100 mcg 100 mcg, | | 09 11:00 | | | | | intravenous, ONCE, 1 dose, Clarisa | | AM PST | | | | | 03/07/08 at 1130 | | | | | | + +-------+ +--------+---+---+ +-------+ +--------+---+---+ | Given | 03/07/19 | 50 mcg | | | | | 09 10:45 | | | | | | AM PST | | | | +-------+ +--------+---+---+ +---+---+ | | | +---+---+ + +-------+ +---------+---+---+ | fentanyl (aka SUBLIMAZE) | Given | 03/03/19 | 100 mcg | | | | injection 100-200 mcg 100-200 | | 09 1:30 | | | | | mcg, intravenous, ONCE, 1 dose, | | PM PST | | | | | 03/03/08 at 1330 | | | | | | + +-------+ +---------+---+---+ +---+---+ | | | +---+---+ + +-------+ +---------+---+---+ | fentanyl (aka SUBLIMAZE) | Given | 03/03/19 | 100 mcg | | | | injection 100-300 mcg 100-300 | | 09 11:40 | | | | | mcg, intravenous, ONCE, 1 dose, | | AM PST | | | | | 1/11/09 at 0930 | | | | | | + +-------+ +---------+---+---+ +-------+ +---------+---+---+ | Given | 03/03/19 | 100 mcg | | | | | 09 11:30 | | | | | | AM PST | | | | +-------+ +---------+---+---+ +---+---+ | | | +---+---+ + +-------+ +-------+---+---+ | lansoprazole (aka PREVACID) | Given | 03/08/19 | 30 mg | | | | capsule 30 mg 30 mg, oral, | | 09 9:00 | | | | | DAILY, First dose on 03/03/08 | | AM PST | | | | | at 0900, Until Discontinued | | | | | | + +-------+ +-------+---+---+ +-------+ +-------+---+---+ | Given | 03/07/19 | 30 mg | | | | | 09 9:00 | | | | | | AM PST | | | | +-------+ +-------+---+---+ | Given | 03/06/19 | 30 mg | | | | | 09 9:00 | | | | | | AM PST | | | | +-------+ +-------+---+---+ +---+---+ | | | +---+---+ + +-------+ +------+---+---+ | lidocaine (aka XYLOCAINE) 1 % | Given | 03/03/19 | 1 mL | | | | (10 mg/mL) injection 1 dose, | | 09 11:15 | | | | | Starting 03/03/08 at 1113, | | AM PST | | | | | Until 03/03/08 at 1220 | | | | | | + +-------+ +------+---+---+ +---+---+ | | | +---+---+ + +-------+ +---+---+---+ | lidocaine (aka XYLOCAINE) 1 % | Given | 03/07/19 | | | | | (10 mg/mL) injection 1 dose, | | 09 10:45 | | | | | Starting [facility] 03/07/08 at 1035, | | AM PST | | | | | Until Clarisa 03/07/08 at 1052 | | | | | | + +-------+ +---+---+---+ +---+---+ | | | +---+---+ + +-------+ +-------+---+---+ | magnesium hydroxide (aka MILK | Given | 03/07/19 | 30 mL | | | | OF MAGNESIA) suspension 30 mL 30 | | 09 8:43 | | | | | mL, oral, EVERY 4 HOURS | | AM PST | | | | | NEEDED, Starting 03/03/08 at | | | | | | | 0005, Until Tue03/08/08 at 2209, | | | | | | | constipation | | | | | | + +-------+ +-------+---+---+ +---+---+ | | | +---+---+ + +-------+ +--------+---+---+ | metronidazole (aka FLAGYL) IV | Given | 03/07/19 | 500 mg | | | | 500 mg 500 mg, intravenous, | | 09 2:00 | | | | | EVERY 8 HOURS, First dose on Sun | | AM PST | | | | | 03/03/08 at 1145, Until | | | | | | | Discontinued | | | | | | + +-------+ +--------+---+---+ +-------+ +--------+---+---+ | Given | 03/06/19 | 500 mg | | | | | 09 6:00 | | | | | | PM PST | | | | +-------+ +--------+---+---+ | Given | 03/06/19 | 500 mg | | | | | 09 12:39 | | | | | | PM PST | | | | +-------+ +--------+---+---+ +---+---+ | | | +---+---+ + +-------+ +------+---+---+ | midazolam (aka VERSED) | Given | 03/06/19 | 1 mg | | | | injection 1 mg 1 mg, | | 09 5:00 | | | | | intravenous, ONCE, 1 dose, Wed | | PM PST | | | | | 03/06/08 at 1700 | | | | | | + +-------+ +------+---+---+ +---+---+ | | | +---+---+ + +-------+ +------+---+---+ | midazolam (aka VERSED) | Given | 03/03/19 | 1 mg | | | | injection 1-6 mg 1-6 mg, | | 09 11:30 | | | | | intravenous, ONCE, 1 dose, Sun | | AM PST | | | | | 03/03/08 at 0930 | | | | | | + +-------+ +------+---+---+ +---+---+ | | | +---+---+ + +-------+ +------+---+---+ | midazolam (aka VERSED) | Given | 03/07/19 | 1 mg | | | | injection 1 dose, Starting Clarisa | | 09 11:05 | | | | | 03/07/08 at 1035, Until Clarisa | | AM PST | | | | | 03/07/08 at 1057 | | | | | | + +-------+ +------+---+---+ +-------+ +------+---+---+ | Given | 03/07/19 | 1 mg | | | | | 09 10:45 | | | | | | AM PST | | | | +-------+ +------+---+---+ +---+---+ | | | +---+---+ + +---------+ +---+-------+---+ | NaCl 0.9%-KCl 20 mEq IV | New Bag | 03/03/19 | | 100 | | | intravenous, CONTINUOUS, Starting | | 09 3:33 | | mL/hr | | | 03/03/08 at 0015, Until Fri | | PM PST | | | | | 03/08/08 at 2209 | | | | | | + +---------+ +---+-------+---+ +---------+ +---+-------+---+ | New Bag | 03/03/19 | | 100 | | | | 09 12:15 | | mL/hr | | | | AM PST | | | | +---------+ +---+-------+---+ +---+---+ | | | +---+---+ + +-------+ +------+---+---+ | ondansetron (anali ZOYIN) | Given | 03/03/19 | 4 mg | | | | injection 4 mg 4 mg, | | 09 4:00 | | | | | intravenous, EVERY 8 HOURS, 3 | | PM PST | | | | | doses, First dose on 03/03/08 | | | | | | | at 0015, Last dose on 03/03/08 | | | | | | | at 1600 | | | | | | + +-------+ +------+---+---+ +-------+ +------+---+---+ | Given | 03/03/19 | 4 mg | | | | | 09 8:00 | | | | | | AM PST | | | | +-------+ +------+---+---+ | Given | 03/03/19 | 4 mg | | | | | 09 12:15 | | | | | | AM PST | | | | +-------+ +------+---+---+ +---+---+ | | | +---+---+ + +-------+ +-------+---+---+ | oxycodone immediate release | Given | 03/03/19 | 10 mg | | | | (aka ROXICODONE) tablet 10 mg 10 | | 09 8:29 | | | | | mg, oral, EVERY 4 HOURS | | AM PST | | | | | NEEDED, Starting 03/03/08 at | | | | | | | 0030, Until Tue03/04/08 at 1259, | | | | | | | moderate pain | | | | | | + +-------+ +-------+---+---+ +---+---+ | | | +---+---+ + +-------+ +------+---+---+ | oxycodone immediate release | Given | 03/07/19 | 5 mg | | | | (aka ROXICODONE) tablet 5 mg 5 | | 09 9:30 | | | | | mg, oral, EVERY 4 HOURS | | PM PST | | | | | NEEDED, Starting 03/04/08 at | | | | | | | 1253, Until Tue03/08/08 at 2209, | | | | | | | moderate pain, severe pain | | | | | | + +-------+ +------+---+---+ +-------+ +------+---+---+ | Given | 03/06/19 | 5 mg | | | | | 09 9:46 | | | | | | PM PST | | | | +-------+ +------+---+---+ | Given | 03/05/19 | 5 mg | | | | | 09 12:00 | | | | | | AM PST | | | | +-------+ +------+---+---+ +---+---+ | | | +---+---+ + +-------+ +-------+---+---+ | pravastatin (aka PRAVACHOL) | Given | 03/08/19 | 20 mg | | | | tablet 20 mg 20 mg, oral, DAILY, | | 09 9:00 | | | | | First dose on 03/04/08 at | | AM PST | | | | | 1300, Until Discontinued | | | | | | + +-------+ +-------+---+---+ +-------+ +-------+---+---+ | Given | 03/07/19 | 20 mg | | | | | 09 9:00 | | | | | | AM PST | | | | +-------+ +-------+---+---+ | Given | 03/06/19 | 20 mg | | | | | 09 9:00 | | | | | | AM PST | | | | +-------+ +-------+---+---+ +---+---+ | | | +---+---+ + +-------+ + +---+---+ | senna (aka TOOTIEOT) tablet 1 | Given | 03/07/19 | 1 tablet | | | | Tab 1 tablet, oral, TWICE DAILY, | | 09 9:00 | | | | | First dose on 03/03/08 at | | PM PST | | | | | 0015, Until Discontinued | | | | | | + +-------+ + +---+---+ +-------+ + +---+---+ | Given | 03/07/19 | 1 tablet | | | | | 09 9:00 | | | | | | AM PST | | | | +-------+ + +---+---+ | Given | 03/06/19 | 1 tablet | | | | | 09 9:00 | | | | | | PM PST | | | | +-------+ + +---+---+ +---+---+ | | | +---+---+ + +-------+ + +---+---+ | vancomycin (aka VANCOCIN) IV | Given | 03/06/19 | 1,000 mg | | | | (ADD-vantage) 1,000 mg 1,000 mg | | 09 1:15 | | | | | (1 g), intravenous, EVERY 12 | | AM PST | | | | | HOURS, First dose on 03/03/08 | | | | | | | at 1315, Until Discontinued | | | | | | + +-------+ + +---+---+ +-------+ + +---+---+ | Given | 03/05/19 | 1,000 mg | | | | | 09 1:15 | | | | | | PM PST | | | | +-------+ + +---+---+ | Given | 03/05/19 | 1,000 mg | | | | | 09 1:15 | | | | | | AM PST | | | | +-------+ + +---+---+ +---+---+ | | | +---+---+ documented in this encounter
--- OUTSIDE RECORDS SUMMARY | ~2019-10-16 | XMS | Encounter Summary ---
Demographics + + + | Address | [address] | | | [place] [address] | + + + | Home Phone | | + + + | Preferred Language | Unknown | + + + | Marital Status | | + + + | Uatsdin Affiliation | MET | + + + | Race | White | + + + | Ethnic Group | Not or | + + + Author + + + | Author | [facility] | + + + | Organization | [facility] | + + + | [...] Team Providers + +------+ + | Care Life Advisor Name | Role | Phone | + +------+ + | Remington Camacho MD | PCP | | + +------+ + Reason for Referral PROC - Outpatient Surgery (Routine) +--------+--------+ + + + + | Status | Reason | Specialty | Diagnoses / | Referred By | Referred To | | | | | Procedures | Contact | Contact | +--------+--------+ + + + + | Closed | | Neurological | Diagnoses | Lane, | Cecile, | | | | Surgery | Other | MD Rickei | MD Paramjit | | | | | specified | [address] | [address] | | | | | complication | [address] | [address] | | | | | of internal | Rd | [place], [place] | | | | | prosthetic | [facility], [place] | [address] | | | | | devices, | [address] | Phone: | | | | | implants and | Phone: | [phone] | | | | | grafts, not | [phone] | Fax: | | | | | elsewhere | Fax: | [phone] | | | | | classified, | [phone] | | | | | | initial | | | | | | | encounter | | | | | | | Procedures | | | | | | | REQUEST TO | | | | | | | SURGERY | | | | | | | OPTIMIZATION SPECIALIST | | | | | | | MI REMOVAL | | | | | | | DEEP IMPLANT | | | +--------+--------+ + + + + Reason for Visit +---------+ + | Reason | Comments | +---------+ + | Post Op | | +---------+ + Encounter Details +--------+---------+ + + + | Date | Type | Department | Care Team | Description | +--------+---------+ + + + | 01/10/ | Office | Neurosurgery at | | Exposure of | | 2015 | Visit | [facility] [address] | | implanted material | | | | [facility] for | | to surrounding | | | | Health and Healing, | | tissue (HCC) | | | | Building | | (Primary Dx) | | | | floor [place], [place] | | | | | | [address] | | | | | | [phone] | | | +--------+---------+ + + + [...] + + + | Blood Pressure | - | - | | + [...] Weight | 53.1 kg (117 lb) | 01/10/2015 9:09 AM | | | | | PST | | + + + + + | Height | - | - | | + + + + + | Body Mass Index | 23.63 | 06/06/2014 2:16 PM | | | | | PDT | | + + + + + documented in this encounter Progress Notes Rickie Lane MD - 01/09/2015 12:38 PM PSTFormatting of this note might be different from t chapincito original. Cielo Bell returns to clinic today S/P SAH and right pterional craniotomy and clipping of anterior communicating artery aneurysm 10/18/07 and subsequent VPS placement on 04/12/08. She is referred back by her PCP for suspicion of a screw erosion through skin. Interval History: Cielo Bell does in fact have one of the cranioplasty screws eroding through th e skin, the head of the screw is seen, apparently the skin has been thin for a few years but the screw actually broke through 2 months ago. She denies any trauma to the area, she denie s any manifestations of infection including redness, pain, discharge or swelling. Unfortunat charles, 2 weeks ago she had a heart attack and was admitted for 2 days were she had [address] aced. Apparently she was hypertensive but was not taking medications for it, now she is on l isinopril and metoprolol. She is now on Plavix and aspirin. 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 bacitracin 500 unit/gram topical ointment Apply to affected area three times daily. 30 g 0 oxyCODONE, immediate release, 5 mg oral tablet Take 0.5-1 tablets by mouth every three hours as needed for moderate pain or severe pain. 40 tablet 0 No current facility-administered medications on file prior to visit. PE: Neurological exam: Awake, alert, oriented x3 Cranial nerves intact by gross examination Motor power: intact motor power in all extremities Sensory system: intact superficial and deep sensation in all extremities Coordination: intact Gait: normal, Romberg negative Incision site: there is a retracted scar on the right upper side of her forehead from her p revious craniotomy and the screw can be seen at this area with no signs of inflammation Imaging: No new images Assessment: Cielo Bell 65 y.o. 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 She tolerated that well. 2 months ago, one of the cranioplasty screws in the fo rehead, broke through the skin. It is not infected but it has to be removed due to risk or i nfection. But she had an [place] 2 weeks ago, she had 2 coronary stents placed and is on Plavix a nd aspirin. On the other hand this procedure requires only sedation and local anaesthetic an d is fairly short procedure. We will discuss this with her full stack web developer, Dr Chana Luu at [facility] in [facility]. And she will also be seen in our [facility] clinic by an M D. Plan: Contact Dr Luu to discuss the periop management of this patient Schedule Surgery for removal of exposed screw of the forehead under local anaesthesia and s eadation I spent 30 minutes with the patient. Greater than 50% of the time was spent counseling the patient regarding the management plan. Rickie Lane MD NEUROSURGERY AT [facility] [address] Mailcode: [place] [id number] documented in this encou nter Plan of Treatment + +------+--------+ + + | Name | Type | Priori | Associated Diagnoses | Order Schedule | | | | ty | | | + +------+--------+ + + | 12 LEAD ECG | ECG | Routin | Exposure of | Expected: 01/10/2015 | | | | e | implanted material | | | | | | to surrounding | | | | | | tissue (HCC) | | + +------+--------+ + + documented as of this encounter Visit Diagnoses + + | Diagnosis | + + | Exposure of implanted material to surrounding tissue (HCC) - Primary | + + documented in this encounter"
--- OUTSIDE RECORDS SUMMARY | ~2019-10-16 | XMS | Encounter Summary ---
Demographics + + + | Address | [address] | | | [place] [address] | + + + | Home Phone | | + + + | Preferred Language | Unknown | + + + | Marital Status | | + + + | Pentecostal Affiliation | MET | + + + | Race | White | + + + | Ethnic Group | Not or | + + + Author + + + | Author | [facility] | + + + | Organization | [facility] | + + + | [...] Team Providers + +------+ + | Care Test Facility Engineer Name | Role | Phone | + +------+ + | Mary Vazquez PA-C | PCP | | + +------+ + Encounter Details +--------+ + + + + | Date | Type | Department | Care Team | Description | +--------+ + + + + | 07/24/ | Telephone | Otolaryngology | Ata White MD | | | 2019 | | Head and Neck | [address] | | | | | Surgery Services at | [address] [place], | | | | | [facility] [address] | [place] [address] | | | | | [facility] for | [phone] | | | | | Health and Healing, | | | | | | [address] | | | | | | [place], [place] | | | | | | [address] | | | | | | [phone] | | | +--------+ + + + [...] this encounter Miscellaneous Notes Telephone Encounter - Ml Hess MA - 09/14/2018 8:26 AM PDTPatient arrived to [facility] closing note elep veronica Encounter - Ml Hess MA - 09/13/2018 2:[address]'s response to my email at 1:39... "Spoke to them and directed them to come to the er Ata White MD Sent by I phone Forgive autocorrect" elephone Encounter - Ema Thomas - 09/13/2018 2:[address] White: I phoned and was unable to get throu gh. So I spoke to home health and suggested they bring her here to the er. Can you call and follow up on that so they come to the er. Ata White MD I called and LVM for Holi to bring patient into ER and to call us back. Electronically sign ed by Ema Thomas at 09/13/2018 2:23 PM PDTTelephone Encounter - Ml Hess MA - 09/13/2018 12:13 PM PDTDenise, home health nurse calling concerned on patients wound. Provi ded my e-mail address to send photos too. Florecita is concerned with with patients flap site. Stating it has lifted 1 cm and has puss coming from some sides. After cleaning, strong odor still. Concerned and would like a call back from a provider. Florecita is also wanting to confirm correct wound care instructions. Stating wound is being cleaned 2x daily... Wound on face is being cleaned with hydrogen peroxide every day 2x a day, with xeroform columba lied after. Flap is being cleaned with hydrogen peroxide on edges 2x daily. Good # to reach Florecita at is [phone] Photos sent via email to Dr. White and Ezequiel Heine documented in this encounter Plan of Treatment Not on filedocumented as of this encounter Visit Diagnoses Not on filedocumented in this encounter
--- OUTSIDE RECORDS SUMMARY | ~2019-10-16 | XMS | Encounter Summary ---
Demographics + + + | Address | [address] | | | [place] [address] | + + + | Home Phone | | + + + | Preferred Language | Unknown | + + + | Marital Status | | + + + | Amish Affiliation | MET | + + + [...] Providers + +------+ + | Care Machine Packager Name | Role | Phone | + +------+ + | Mary Vazquez PA-C | PCP | | + +------+ + Encounter Details +--------+ + + + + | Date | Type | Department | Care Team | Description | +--------+ + + + + | 09/22/ | Pharmacy | Outpatient Retail | | | | 2019 | Visit | [facility] | | | | | | [address] | | | | | | [address] [place], [place] | | | | | | [address] | | | | | | [phone] | | | +--------+ + + + [...]
--- OUTSIDE RECORDS SUMMARY | ~2019-10-16 | XMS | Encounter Summary ---
Demographics + + + | Address | [address] | | | [place] [address] | + + + | Home Phone [...] Team Providers + +------+ + | Care Canceling And Cutting Control Clerk Name | Role | Phone | + +------+ + | Mary Vazquez PA-C | PCP | | + +------+ + Encounter Details +--------+ + + + + | Date | Type | Department | Care Team | Description | +--------+ + + + + | 01/09/ | Telephone | Neurosurgery at | Paramjit Huber MD | | | 2019 | | [facility] [address] | [address] | | | | | Ave [facility] | [place], [place] | | | | | Health and Healing, | [address] | | | | | Building [address]th | [phone] | | | | | floor [place], [place] | | | | | | [address] | | | | | | [phone] | | | +--------+ + + + [...] this encounter Miscellaneous Notes Telephone Encounter - Marni Corley - 03/01/2018 4:35 PM PSTReceived call from Cielo higgins to cancel surgery scheduled 03/23/18 and r/s to a later date. She reports she is worr ied she won't be able to find transportation to the surgery. documented in this encounter Plan of Treatment Not on filedocumented as of this encounter Visit Diagnoses Not on filedocumented in this encounter"
--- OUTSIDE RECORDS SUMMARY | ~2019-10-16 | XMS | Encounter Summary ---
Demographics + + + | Address | [address] | | | [place] [address] | + + + | Home Phone | | + + + | Preferred Language | Unknown | + + + | Marital Status | | + + + | Methodist Affiliation | MET | + + + | Race | White | + + + | Ethnic Group | Not or | + + + Author + + + | Author | [facility] | + + + | Organization | [facility] | + + + | Address [...] Team Providers + +------+ + | Care Aircraft Machinist Helper Name | Role | Phone | + +------+ + | Mary Vazquez PA-C | PCP | | + +------+ + Encounter Details +--------+ + + + + | Date | Type | Department | Care Team | Description | +--------+ + + + + | 09/19/ | Procedure | [id number] | | | | 2019 | Pass | [address] | | | | | | Rd [facility] | | | | | | Hospital Admitting | | | | | | Desk Located on the | | | | | | 9th floor | | | | | | [place], [place] | | | | | | [address] | | | +--------+ + + + [...]
--- OUTSIDE RECORDS SUMMARY | ~2019-10-16 | XMS | Encounter Summary ---
Demographics + + + | Address | [address] | | | [place] [address] | + + + | Home Phone [...] Providers + +------+ + | Care Nursing Specialist Name | Role | Phone | [...]
--- OUTSIDE RECORDS SUMMARY | ~2019-10-16 | XMS | Encounter Summary ---
Demographics + + + | Address | [address] | | | [place] [address] | + + + | Home Phone [...] Team Providers + +------+ + | Care Security Inspector Name | Role | Phone | [...] | | | unspecified | | Rd [place], | | | | | | | [place] | | | | | | | [address] | | | | | | | Phone: | | | | | | | [phone] | | | | | | | Fax: | | | | | | | [phone] | +--------+--------+ + + + + Encounter [...] | | | Pavilion, 3rd floor | [address] | susceptible | | | | [place], [place] | [phone] | Staphylococcus | | | | [address] | | aureus) infection; | | | | [phone] | | Infection due to | | [...] infected shunt status post removal of the MOLECULAR BIOLOGY DIRECTOR shunt with MSSA s/p ceftriaxone 2 g [...] by hydrocephalus for which she underwent a MOLECULAR BIOLOGY DIRECTOR shunt mony cement on March 2008 and a synthetic cranioplasty for eroded hardware on October 2015. 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 At that time she was noted to have purulent drainage from the cranioplasty site bryan ng with wound dehiscence. She underwent removal of the cranioplasty and MOLECULAR BIOLOGY DIRECTOR shunt as well. Al l the hardware [...] was discharged home the following day [facility] he presented on 05/14/2018 with enlarging [...] She was then advised to present to [facility] ED. The patient had denied any [...] note above. -Medication Allergies: Allergies Allergen Reactions [place] Tar Hives Betadine [Povidone-Iodine (With Soap)] Rash [...] WBC 7.2. CULTURE, WOUND DEEP W/ ANAEROBE [[id number]] (Abnormal) LAB Collected: 07/11/18 1231 Lab Status: [...] history of cranial osteomyelitis, epidural abscess, infected MOLECULAR BIOLOGY DIRECTOR shunt with MSSA status p ost removal of the synthetic flap, and MOLECULAR BIOLOGY DIRECTOR shunt as well - 11/2017. Status post completion o f 6 weeks of IV ceftriaxone on 01/16/2018. 3) hx of subarachnoid hemorrhage status post right pteronial craniotomy for clipping in Sep. This was then complicated by hydrocephalus for which she underwent a MOLECULAR BIOLOGY DIRECTOR shunt mony cement on March 2008 and [...] forward. Marianna Chandler MD INFECTIOUS DISEASES AT [facility] 3RD FLOOR [address] [place] [address] Mail[address]: [address] [place] [address] [phone] signed by Marianna Chandler MD at 07/28/2018 [...]
--- OUTSIDE RECORDS SUMMARY | ~2019-10-16 | XMS | Encounter Summary ---
Demographics + + + | Address | [address] | | | [place] [address] | + + + | Home Phone | | + + + | Preferred Language | Unknown | + + + | Marital Status | | + + + | Scientology Affiliation | MET | + + + | Race | White | + + + | Ethnic Group | Not or | + + + Author + + + | Author | [facility] | + + + | Organization | [facility] | + + + | Address | [...] Team Providers + +------+ + | Care Geophysical Observer Name | Role | Phone | + [...] [address] | | | | | [facility] | [address] | | | | | Hospital Admitting | [facility] [place] | | | | | Desk Located on the | [address] | | | | | 9th floor | [phone] | | | | | [place], [place] | | | | | | [address] | Dante Mcclure CRNA | | | | | | [address] | | | | | | [address] | | | | | | [place], [place] | | | | | | [address] | | | | | | [phone] | | | | | | | [...] be different from the original. Cielo Bell [id number] Allergies Allergen Reactions [place] Tar Hives Betadine [Povidone-Iodine (With Soap)] Rash [...] disease) Chronic pain Skull defect CAD in [place] artery History of non-ST elevation myocardial infarction [...] Bladder suspension 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 Implementation Technician shunt Tympanoplasty Right 1987 Lumpectomy of left breast 1979 Coronary stent placement 12/28/2014 status post stent placement in the mid LAD Removal of svp digital sales food & cooking shunt Cholecystectomy Current Medication List Name Sig [...] Date RATE 66 09/19/2018 ATRIALRATE 67 09/19/2018 [place] 172 09/19/2018 QRS 92 09/19/2018 QT 437 [...] encounter Miscellaneous Notes [facility] PreOp Note - Ovi Mann MD - 10/25/2018 2:55 PM PDTROS: [...] TO SCALP RECONSTRUCTIO N 20X5 CM at [facility] [place] Ata White MD. Past medical [...] TO SCALP RECONSTRUCTI ON 20X5 CM at [facility] [place] Ata White MD. Past medical [...]
--- OUTSIDE RECORDS SUMMARY | ~2019-10-16 | XMS | Encounter Summary ---
Demographics + + + | Address | [address] | | | [place] [address] | + + + | Home Phone | | + + + | Preferred Language | Unknown | + + + | Marital Status | | + + + | Mormonism Affiliation | MET | + + + [...] Team Providers + +------+ + | Care Professional Athletes Coach Name | Role | Phone | + [...] + + + + | 10/22/ | Hospital | [facility] [address] | Magnolia Diego MD | | | 2016 - | Encounter | [address] | [address] | | | | | [id number] [facility] | [place], [place] | | | 10/24/ | | [facility], | [address] | | | 2015 | | [place] [facility] | [phone] | | | | | [phone] | | | +--------+ + + + [...] of major salivary glands Goiter CAD in [place] artery Comment:s/p NSTEMI 12/27/2014; status post stent [...] shortly before that appointment she suffered an IN and was placed on aspirin and Plavix and was not cleared for surgery. Ho tyler, since we last saw her, the skin [...] 11/07/2015 11:30 AM NSG FELLOW Neurosurgery at [facility] Destination: Destination: Home Condition on Discharge Good Future Appointments Provider Department [facility] [place] 11/07/2015 11:30 AM NSG FELLOW Neurosurgery at [facility] [phone] Neurosurgery Warning Symptoms and Signs If you [...] clinic hours, M-F 7:30-4:30 pm, please call [phone] or after hours call Neurosu rgery resident at [phone] Pain Medications DO NOT restart plavix until [...] Physician: MD Piotr Woods MD Neurosurgery Resident [id number] documented in this encou nter Progress Notes Frances Mcfadden PA - 10/24/2015 11:58 AM PDTFormatting of this note might be differen t from the original. . Neuroscience Intensive Care Unit Team Progress Note NSICU ASSIGNED #[id number] Admission dx: m95.2 1 Days in ICU 1 Days in Hospital Abbreviated HPI / Daily Assessment Cielo Bell is a 65 y/o F smoker w/ hx COPD, CAD w/ IN s/p Stents in Dec 2014, with hx [...] Yes Current Assessment & Plan -Admitted to NSU s/p R synthetic crani; Dr. Diego primary. [...] treatment team members Provider Role Ipt Neurosurgery #[id number] Treatment Team Ipt Critical Care Nsicu #[id number] Treatment Team Patient Lines/Drains/Airways Status Active Lines, [...] e. Date of Service: 10/24/2015 ANSON Chatterjee EPIC DEPARTMENT: ANE ICU NEURO Place of Service:- Inpatient CSN: [id number] Suggested Modifier: None Suggested CPT: TO DIVISION HEAD ANSON Irvin Author:ANSON Chatterjee [address] [place] [address] Jerzy Saez MD - 10/24/2015 10:36 AM PDT . Neuroscience Intensive Care Unit Attending Progress Note Attending Pager #[phone] Hospital admission dx: m95.2 1 Days in ICU 1 Days in Hospital Abbreviated HPI / Daily Assessment Cielo Bell is a 65 y/o F smoker w/ hx COPD, CAD w/ IN s/p Stents in Dec 2014, with hx [...] treatment team members Provider Role Ipt Neurosurgery #[id number] Treatment Team Ipt Critical Care Nsicu #[id number] Treatment Team The Advanced Care Note for [...] and the recent imaging available. Seen with PA/LINER MAN Ashish Mcfadden. Please see their note for details. I reviewed the documented findings, all data and the recent imaging available. Date of Service: 10/24/2015 Author:Jerzy Centeno MD [address] [place] [address] Tommie Connelly - 03/2015 4:28 AM PDT NEUROSURGERY PROGRESS [...] Gram Stain...........: [facility] [...] in 2007 and 2008 respectively. At a in appointment in December 2014, she had a right frontal screw protrusion. 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 Diego and the Neurosurgery team on rounds. I agre e with the findings and the plan of care as documented in the resident s note. -Contact neurosurgery team with any questions/concerns/changes in exam. -Appreciate opportunity to be involved with patient's care Dameon Scanlon DO Skull Base Fellow Department of Neurosurgery [facility] Georgia Rosado MD - 10/23/2015 7:16 PM PDTFormatting of this note might be different fro clover the original. . Neuroscience Intensive Care Unit Attending Progress Note Attending Pager #[phone] Hospital admission dx: m95.2 Days in ICU Days in Hospital Abbreviated HPI / Daily Assessment Cielo Bell is a 65 y/o F smoker w/ hx COPD, CAD w/ IN s/p Stents in Dec 2014, with hx [...] treatment team members Provider Role Ipt Neurosurgery #[id number] Treatment Team Ipt Critical Care Nsicu #[id number] Treatment Team The Advanced Care Note for [...] recent imaging available. Date of Service: 10/23/2015 EPIC DEPARTMENT: ANE ICU NEURO Place of Service:39457- Inpatient CSN: [id number] Suggested Modifier: None Suggested CPT: TO DIVISION HEAD Author:Georgia Rosado MD [address] [place] [address] Cammie Maria MD - 10/22 10:35 AM [...] in bed Cammie Ramos MD Neurosurgery PGY2 [id number] documented in this encounte r H&P Notes Jerzy Centeno MD - 10/23/2015 4:36 PM PDTFormatting of this note might be different fr om the original. . Neuroscience Intensive Care Unit Attending H&P Note Attending Pager #[phone] Admission dx: m95.2 Days in ICU Days in Hospital HPI Cielo Bell is a 65 y/o F smoker w/ hx COPD, CAD w/ IN s/p Stents in Dec 2014, with hx of rupture Acomm aneurysm s/p clipping in 2007. 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 She was seen in neurosurgery clinic for follow up in Dec 2014 sh ortly after her IN. At that clinic appt 12/2014, she was noted to have a Right frontal scre w protrusion. Due to her recent IN and bare metal stent placement, she was [...] COURSE: LINES, DRAINS & AIRWAY: LINES: PIV's, benavides DRAINS: AIRWAY: easy G0 w/ Mac 3; [...] thrombosis. Restart home metop and pravastatin. O2 UT N at night. Regular diet, SCDs. Should [...] treatment team members Provider Role Ipt Neurosurgery #[id number] Treatment Team Ipt Critical Care Nsicu #93329 Treatment Team This patient does not have [...] and the recent imaging available. Seen with PA/LINER MAN Ephraim Mcfadden. Please see their note for details. I reviewed the documented findings, all data and the recent imaging available. Date of Service: 10/23/2015 Author:Jerzy Centeno MD [address] [address] Frances Baldwin PA - 10/23/2015 4:08 PM PDT . Neuroscience Intensive Care Unit Team H&P Note NSICU ASSIGNED #[id number] Days in ICU Days in Hospital POD#0 s/p R synthetic cranioplasty Admitting Provider: MAGNOLIA DIEGO Ray is a 65 y/o F smoker w/ hx COPD, CAD w/ IN s/p Stents in Dec 2014, with hx of rupture Acomm aneurysm s/p clipping in 2007. 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 She was seen in neurosurgery clinic for follow up in Dec 2014 sh ortly after her IN. At that clinic appt 12/2014, she was noted to have a Right frontal scre w protrusion. 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 CAD in [place] artery s/p NSTEMI 12/27/2014; status post stent placement in the mid LAD Abnormal LFTs (liver function tests) MRSA (methicillin resistant staph aureus) culture positive post cariotomy for SAH Continuous tobacco abuse Past Surgical History Procedure Laterality Date Partial thyroidectomy Right Hysterectomy Cholecystecomy Bladder suspension 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 Perfect Binder Feeder Offbearer shunt Tympanoplasty Right 1987 Lumpectomy of left breast 1979 Coronary stent placement 12/28/2014 status post stent placement in the mid LAD Allergies Allergen Reactions Collison Tar Hives Betadine [Povidone-Iodine (With Soap)] Unknown [...] treatment team members Provider Role Ipt Neurosurgery #[id number] Treatment Team Ipt Critical Care Nsicu #64406 Treatment Team Patient Lines/Drains/Airways Status Active Lines, [...] e. Date of Service: 10/23/2015 ANSON Chatterjee [facility] DEPARTMENT: ANE ICU NEURO Place of Service:- Inpatient CSN: [id number] Suggested Modifier: None Suggested CPT: TO DIVISION HEAD ANSON Irvin Author:ANSON Chatterjee [address] [id number] signed by ANSON Irvin at 10/23/2015 5:38 PM Kari Avila MD - 10/23/2015 7:21 AM PDTI have examined the patient and reviewed th e History and Physical and have confirmed that it is accurate and current. Kari Salinas MD aMable desai MD - 0 10/03/2015 2:29 PM PDT [...] Allergies reviewed / updated Allergies Allergen Reactions Collison Tar Hives Betadine [Povidone-Iodine (With Soap)] Unknown [...] of major salivary glands Goiter CAD in [place] artery s/p NSTEMI 12/27/2014; status post stent placement in the mid LAD Abnormal LFTs (liver function tests) MRSA (methicillin resistant staph aureus) culture positive post cariotomy for SAH Past surgery reviewed and updated Past Surgical History Procedure Date Partial thyroidectomy Hysterectomy Cholecystecomy Bladder suspension 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 Perfect Binder Feeder Offbearer shunt Tympanoplasty 1987 Lumpectomy of left breast [...] Alert and appropriate; nl affect. alert Findings: Programming Internship nial nerves 2-12 intact, Motor 5/5 strength [...] to this patient's care. Mable Lee MD [facility] PRE[facility] AT [facility] 4TH FLOOR DAY STAY [address] [place] [address] I spent time counseling the pt regarding [...] ice: 10/23/2015 Attending Surgeon: Magnolia Diego MD Plate Driller(s): Antoinette Del Valle MD, PhD Dameon Scanlon [...] shortly before that appointment she suffered an IN and was placed on as pirin and [...] [facility]. She was sedated and intubated without [...] Antoinette Adkins MD, PhD MD XI Woods/NGUYEN /[id number] I, Dr. Magnolia Diego, was the primary surgeon and in the OR during the critical portions of this procedure. There was no complication. Magnolia Diego MD [facility] [address]C [id number] [address] rause, Antoinette Gomez MD,PhD - 10/23/2015 10:08 [...] manipulated Disposition: PACU, cooper Antoinette Adkins MD,PhD [id number] signed by Magnolia Diego MD at 10/24/2015 8:28 AM PDTdocumented in this encounter Miscellaneous Notes Plan of Ba Hemphill RN - 10/25/2015 12:23 PM PDTNursing Discharge Note Discharge Date: 10/25/2015 Additional Discharge Information: Pt. DC'd home by daughter. VSS. All belongings sent home. AVS & DC instructions reviewed with pt. Pain controled with oral pain meds. Discharge Nurse: Ba Madrigal RN lan of Ba Hemphill RN - 10/25/2015 7:54 AM PDTProblem: General [...] team know of patients wishes. andoff - Zeinab, Carmella Gomez RN - 10/25/2015 2:22 AM PDTNursing Handoff Patient Daily Goal: to be able to sleep tonight (10/24/152039) [facility] IP NURSE HANDOFF: Nesbitt hospital course events: Cielo Bell is a 65 y/o F smoker w / hx COPD, CAD w/ IN s/p Stents in Dec 2014, with hx of rupture Acomm aneurysm s/p clipping in 2007. 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 She was seen i neurosurgery clinic for follow up in Dec 2014 shortly after her IN. At that clinic appt , she was noted to have a Right frontal screw protrusion. Due to her recent IN and bare metal stent placement, she was [...] the day and she called appropriately during nig ht too. As evidenced by: NURSING ASSESSMENT & RECOMMENDATIONS FORWARD Nursing Assessment of Patient Stability Risk: Moderately stable Recommendations Forward: Discharge today Yeyo - Smiley Madrigal RN - 10/24/2015 6:47 PM PDTNursing Handoff Patient Daily Goal: go out and smoke (10/24/15 1506) [facility] IP NURSE HANDOFF: Nesbitt hospital course events: Cielo Bell is a 65 y/o F smoker w / hx COPD, CAD w/ IN s/p Stents in Dec 2014, with hx of rupture Acomm aneurysm s/p clipping in 2007. 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 She was seen i neurosurgery clinic for follow up in Dec 2014 shortly after her IN. At that clinic appt , she was noted to have a Right frontal screw protrusion. Due to her recent IN and bare metal stent placement, she was [...] be safer with a bed alarm at [facility] COMFORT/ANXIETY/BEHAVIOR Patient Target: Patient will be free of pain. As evidenced by: Denying pain. Did not require pain medication. NURSING ASSESSMENT & RECOMMENDATIONS FORWARD Nursing Assessment of Patient Stability Risk: Moderately stable Recommendations Forward: Discharge in the morning Saskia Balderas RN - 10/24/2015 2:04 PM PDTNursing Handoff Patient Daily Goal: to go home (10/24/15 0800) [facility] IP NURSE HANDOFF: Nesbitt hospital course events: PMHx: long-time smoker, COPD on home O2 during sleep, CAD w/ IN s/p Stents in Dec 2014, rupture Acomm [...] AM PDTAssociated Problem(s): Skull defe ct-Admitted to NSICU s/p R synthetic crani; Dr. Diego primary. -Q 4 hr neuro checks and vitals. -cooper status; will likely d/c home today per NSGY. -pain and nausea meds as per APR. -post op CT imaging per neurosurgery--scan shows stable post op findings, encephalomalacia. -reconciled home meds. -incisional wound care as per NSGY protocol. ssessment & Bj n Note - Frances [...] throughout unit. No indication for skilled PT. Jaylon Amor PT, DPT Pager: [phone] lan of Chris Abbott RN - 10/24/2015 9:25 AM PDTProblem: Case Management Goals Goal: Discharge Needs Met Case Management Initial Assessment Reason for Admission: cranioplasty Admitted From: home Emergency Contact: Extended Emergency Contact Information Primary Emergency Contact: Augusto Bell Relation: Son/Daughter Secondary Emergency Contact: Venessa Gerard [employer] Relation: Son/Daughter Past Medical History: Other acquired [...] Handoff Patient Daily Goal: Recover (10/23/15 1500) [place] IP NURSE HANDOFF: Nesbitt hospital course events: Cielo Gauthier Ray is a 65 y/o F smoker w / hx COPD, CAD w/ IN s/p Stents in Dec 2014, with hx of rupture Acomm aneurysm s/p clipping in 2007. 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 She was seen i neurosurgery clinic for follow up in Dec 2014 shortly after her IN. At that clinic appt , she was noted to have a Right frontal screw protrusion. Due to her recent IN and bare metal stent placement, she was [...] of Care / Advance Care NSICU ASSIGNED #[id number] Date: 10/23/2015 Advanced Directives: The patient does not have an advance directive in the EMR. A POLST is not indicated in the EMR. Healthcare Agent(s): Surrogate decision maker has been identified and is : Venessa Gerard (Daughter) [phone]. The surrogate decision maker has been listed as the emergency contact within [facility]. Code Status: Current Code Status Date Active Code Status Order ID Comments User Context 10/23/2015 3:47 PM Full Code [id number] Antoinette Adkins MD,PhD Inpatient Code History: Code Status History Date Active Date Inactive Code Status Order ID Comments User Context 10/23/2015 6:46 AM 10/23/2015 3:47 PM Full Code [id number] Tommie Daniel Izaiah Inpatient 06/07/2014 9:11 AM 06/08/2014 6:06 PM Full Code [id number] Angel Mazariegos MD Inpatient 06/07/2014 6:13 AM 06/07/2014 9:11 AM Full Code [id number] Beny Cruz MD Inpatient 05/13/2008 4:34 PM 05/14/2008 7:21 PM Full Code [id number] Alli Junior MD Inpatient 04/11/2008 5:27 PM 04/13/2008 11:04 PM Full Code [id number] Saskia Nguyen RN Inpatient 03/03/2008 1:17 PM 03/08/2008 10:09 PM Full Code [id number] To Prieto MD Inpatient 03/03/2008 1:16 PM 03/03/2008 1:16 PM DNR/DNI [id number] To Prieto MD Inpatient 03/03/2008 12:06 AM 03/03/2008 1:16 PM Full Code [id number] Marlon Mcintyre MD Inpatient 10/30/2007 10:53 PM 11/02/2007 8:59 PM Full Code [id number] Antoinette Saenz RN Inpatient 10/18/2007 5:01 AM 10/30/2007 10:53 PM Full Code [id number] Norberto Pettit Mami Inpatient Narrative Summary of Conversation: Patient able [...] & Bj n Note - Haven Wilson ACNP - 10/23/2015 5:12 PM PDTAssociated Problem(s): HTN [...] 4:51 PM PDTAssociated Problem(s): Skull defect-Admit to NSICU s/p R synthetic crani; Dr. [...] Skull defect Assessment & Plan -Admit to ICU s/p R synthetic crani; Dr. Diego primary. [...] pt remains sleepy but arousable. Oriented x4. MAE. RODRIGUEZ. Pt denies pain. 1 episode of nausea that was treate d with 6.25 Phenergan. Anticipated post-op needs/devices/follow up: Labs sent in PACU, please follow up with resul ts - resent renal panel due to hemolyzed sample. CT scan completed. IV 0.9 NS with 20K at 10 0ml per Hr. Benavides removed around 1020. Patient does wear 2L [...] pulmonary disease (HCC) 10/24/2007 SAH (subarachnoid hemorrhage) (HCC) 10/24/2007 HTN (hypertension) 10/24/2007 Chronic pain 10/24/2007 Otitis media 10/24/2007 Communicating hydrocephalus 03/08/2008 Benign neoplasm of major salivary gland 06/06/2014 Goiter 06/06/2014 Coronary arteriosclerosis in [place] artery 03/06/2015 Acute hcu-PJ-jprnzulev myocardial infarction (HCC) 12/28/2014 Resolved Ambulatory Problems Diagnosis Date Noted GERD (gastroesophageal reflux disease) 10/24/2007 Past Medical History Diagnosis Date Essential hypertension Tobacco dependence COPD CVA (cerebral vascular accident) ([facility]) 2007 Subarachnoid hemorrhage due to ruptured aneurysm ([facility]) 2007 Benign neoplasm of major salivary glands CAD in [place] artery Abnormal LFTs (liver function tests) MRSA (methicillin resistant staph aureus) culture positive Continuous tobacco abuse Past Surgical History Procedure Laterality Date Partial thyroidectomy Right Hysterectomy Cholecystecomy Bladder suspension 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 Perfect Binder Feeder Offbearer shunt Tympanoplasty Right 1987 Lumpectomy of left breast 1978 Coronary stent placement 12/28/2014 status post stent placement in the mid LAD Allergies Allergen Reactions Collison Tar Hives Betadine [Povidone-Iodine (With Soap)] Unknown [...] medication information: none given Functional Epidural: No MERCHANDISING ASSISTANT: No Respiratory: RR: 18, O2 Sat: 94 %, O2 Delivery: Oxymask 5L Breath Sounds: WDL Except DARIEN: clear LLL: diminished RUL: clear RLL: diminished MELISSA No Comment: Cardiac: BP: 111/60 mmHg HR: 71 GI: Nausea/Vomiting Status: No Signs/Symptoms: intermittent nausea Interventions: antiemetic given;environmental adjustment;slow, deep breathing encouraged;HO B elevated Assessment: relief of signs/symptoms Comments: : Last void: via benavides catheter in OR, catheter removed prior to PACU Contact Name: Linda (daughter) Contact Number: [phone] Family contacted: Yes Comment: Update given to pt's Linda hoyos. Belongings: Dentures, HHN, glasses Anika Newsome RN - 10/23/2015 10:58 AM PDT.Meets Phase [...] medication information: none given Functional Epidural: No MERCHANDISING ASSISTANT: No Respiratory: RR: 24, O2 Sat: 96 %, O2 Delivery: Oxymask Breath Sounds: WDL Except DARIEN: clear LLL: diminished RUL: clear RLL: diminished MELISSA No Comment: Cardiac: BP: 134/66 mmHg HR: 77 GI: Nausea/Vomiting Status: No Signs/Symptoms: Interventions: Assessment: Comments: : Last void: via benavides catheter in OR, catheter removed prior to PACU Contact Name: Linda (daughter) Contact Number: [phone] Family contacted: Yes Comment: Update given to [...] | + + + + + | [facility] | [address] | [place], [place] | | | [facility] | [address] | [address] | | | TESTS | | | [...] | [facility] | [address] | [place] [address] | | | JOHNSON, RYAN | RAMSES [...] (H) | 60 - 99 mg/dL | [facility] - | | | GLUCOSE, | | [...] + + + + + | [facility] | [address] | [place], [place] | | | [facility] | [facility] | [address] | | | TESTS | | | [...] [facility] | [address] | [place], [place] | | | [facility] [place] [facility] [place] | [address] | [address] | | | TESTS | | | [...] + + + + + | [facility] | [address] | [place], [place] | | | [place] [facility] | [address] | [address] | | | TESTS | | | | + + + + + OPERATION RECORD (10/24/2015 8:27 AM PDT) + + | Transcriptions | + + | Magnolia Diego MD - 10/23/2015 4:36 PM PDT Date of Service: 10/23/2015 Attending | | Surgeon: Magnolia Diego MD Plate Driller(s): Antoinette Del Valle MD, PhD Raed B | | DO Caop Preoperative Diagnosis: 1. History of aneurysmal subarachnoid [...] that appointment she | | suffered an IN and was placed on aspirin and Plavix [...] [facility]. She was | | sedated and [...] 10/23/2015 15:01:44DT: 10/23/2015 16:36:58Job #: | | [id number], Dr. Magnolia Diego, was the primary surgeon and in the OR during the | | critical portions of this procedure. There was no complication.Magnolia Diego MDOHSU 7C | | [id number] [facility] [id number], [place] [id number] | |The new synthetic skull flap was [...] |KLK/MODL | | | | | | /[id number] | | | |I, Dr. Magnolia Diego, was the primary surgeon and in the OR during the critical portions of this procedure. There was no complication. | | | | | | | |Magnolia Diego MD | |[facility] [address] NSI | |[address] | |[id number] | |[place] [address] | |[phone] | + + CAPILLARY BLOOD GLUCOSE (NO [...] [facility] | [address] | [place], [place] | | | [facility] | [address] | [address] | | | TESTS | | | [...] + | [facility] | [address] | [place] [address] | | | SERVICES, CORE | RAMSES [...] LABORATORY | | | | | | JOHNSON, | | | | | | CORE | | + +-------+ + + + + + | Specimen | + + | Blood - Blood | | (substance) | + + + + + + + | Performing | Address | City/State/Zipcode | Phone Number | | Organization | | | | + + + + + | [facility] | [address] | [place] [address] | | | SERVICES, CORE | RAMSES [...] | | | LABORATORY | | | [place] | | | SERVICES, | | | [...] + + + + + | [facility] | [address] | [place] [address] | | | SERVICES, CORE | RAMSES [...] + + | [facility] | [address] [facility] [address] | [place], [place] | | | [facility] | [address] | [address] | | | TESTS | | | [...] Physician: Cecile TRINIDAD Assistants: | | | Jed TRINIDAD, Capo SILVER Prior to the beginning of the procedure, [...] | | PACU, cooper Antoinette Adkins MD,PhD [id number] | | + + + RENAL FUNCTION [...] | | | LABORATORY | | | [place] | | | SERVICES, | | | [...] the MDRD equation recommended by the | [facility] | | National Kidney Disease Education Program. [...] | + + + + + | [facility] | [address] | [place] [address] | | | SERVICES, CORE | [address] [...] | + + + + + | [facility] | [address] | [place] [address] | | | SERVICES, CORE | RAMSES [...] | + + + + + | [facility] | [address] [facility] | [place] [address] | | | SERVICES, CORE | [address] | | | + + + [...] | | | LABORATORY | | | [place] | | | SERVICES, | | | [...] | + + + + + | [facility] | [address] | [place] [address] | | | SERVICES, CORE | [address] | | | + + + + + CAPILLARY BLOOD GLUCOSE (NO CHG), YUNIER (10/23/2015 7:24 AM PDT) + +-------+ + [...] [facility] | [address] | [place], [place] | | | [facility] [place] | [address] | [address] | | | TESTS | | | [...] | + + + + + | [facility] | [address] | [place] [address] | | | SERVICES, CORE | RAMSES [...] + | [facility] | [address] | [place] [address] | | | SERVICES, CORE | PARK [...] [facility] | [address] | [place] [address] | | | SERVICES, CORE | PARK [...] | | | LABORATORY | | | MALTESE | | | SERVICES, | | | [...] the MDRD equation recommended by the | [facility] | | National Kidney Disease Education Program. [...] | + + + + + | [facility] | [address] | [place] [address] | | | SERVICES, RYAN | RAMSES [...] deformity of head | + + | Chronic obstructive pulmonary disease (HCC) Chronic airway obstruction, not elsewhere | | classified | + + | Communicating hydrocephalus (HCC) Communicating hydrocephalus | + + | HTN (hypertension) Unspecified essential hypertension | + + | Continuous tobacco abuse | + + | Hyperglycemia Other abnormal glucose | + + documented in this encounter Administered Medications + +--------+ +---------+------+--------+ | Medication Order | MAR | Action | Dose | Rate | Site | | | Action | Date | | | | + +--------+ +---------+------+--------+ | insulin lispro (HUMALOG) | Given | 10/23/19 | 1 Units | | Right | | injection subcutaneous, FOUR | | 16 10:58 | | | Arm | | TIMES DAILY, First dose on Clarisa | | PM PDT | | | | | 10/23/15 at 2345, Until | | | | | | | Discontinued | | | | | | + +--------+ +---------+------+--------+ +---+---+ | | | +---+---+ + +---------+ +-----+---+---+ | magnesium sulfate in water IV | New Bag | 10/24/19 | 2 g | | | | (RTU) 2 g 2 g, intravenous, | | 16 5:00 | | | | | NEEDED, Starting Clarisa 10/23/15 at | | AM PDT | | | | | 2152, Until Tue10/24/15 at 0847, | | | | | | | magnesium level 1.6 - 2 mg/dL | | | | | | + +---------+ +-----+---+---+ +---+---+ | | | +---+---+ + +-------+ +-------+---+---+ | metoprolol succinate | Given | 10/25/19 | 25 mg | | | | (TOPROL-XL) tablet 25 mg 25 mg, | | 16 10:32 | | | | | oral, DAILY, First dose on Tue | | AM PDT | | | | | 10/23/15 at 1200, Until | | | | | | | Discontinued | | | | | | + +-------+ +-------+---+---+ +-------+ +-------+---+---+ | Given | 10/24/19 | 25 mg | | | | | 16 8:17 | | | | | | AM PDT | | | | +-------+ +-------+---+---+ | Given | 10/23/19 | 25 mg | | | | | 16 4:25 | | | | | | PM PDT | | | | +-------+ +-------+---+---+ +---+---+ | | | +---+---+ + + + +---+ +---+ | NaCl 0.9%-KCl 20 mEq/L IV | Rate/Dos | 10/23/19 | | 50 mL/hr | | | infusion intravenous, | e Change | 16 4:25 | | | | | CONTINUOUS, Starting Clarisa 10/23/15 | | PM PDT | | | | | at 1045, Until Clarisa 10/23/15 at | | | | | | | 2151, at 50 mL/hr | | | | | | + + + +---+ +---+ +---------+ +---+-------+---+ | New Bag | 10/23/19 | | 100 | | | | 16 11:15 | | mL/hr | | | | AM PDT | | | | +---------+ +---+-------+---+ +---+---+ | | | +---+---+ + + + +---------+---+ + | nicotine (NICOTROL) 21 mg/24 hr | Applied | 10/25/19 | 1 patch | | Right | | patch 1 patch 1 patch, | Patch | 16 10:31 | | | Shoulder | | transdermal, DAILY, First dose on | | AM PDT | | | | | Tue10/24/15 at 1845, Until | | | | | | | Discontinued | | | | | | + + + +---------+---+ + + + +---------+---+ + | Applied Patch | 10/24/19 | 1 patch | | Left Arm | | | 16 8:37 | | | | | | PM PDT | | | | + + +---------+---+ + +---+---+ | | | +---+---+ + +---------+ +------+---+---+ | ondansetron (ZOFRAN) injection | New Bag | 10/24/19 | 4 mg | | | | 4 mg 4 mg, intravenous, EVERY 8 | | 16 12:26 | | | | | HOURS, 3 doses, First dose on Clarisa | | PM PDT | | | | | 10/23/15 at 1600, Last dose on Fri | | | | | | | 10/24/15 at 0800 | | | | | | + +---------+ +------+---+---+ +---------+ +------+---+---+ | New Bag | 10/23/19 | 4 mg | | | | | 16 4:25 | | | | | | PM PDT | | | | +---------+ +------+---+---+ +---+---+ | | | +---+---+ + +-------+ +-------+---+---+ | pravastatin (PRAVACHOL) tablet | Given | 10/24/19 | 20 mg | | | | 20 mg 20 mg, oral, AT BEDTIME, | | 16 8:38 | | | | | First dose on Tue10/23/15 at 2200, | | PM PDT | | | | | Until Discontinued | | | | | | + +-------+ +-------+---+---+ +-------+ +-------+---+---+ | Given | 10/23/19 | 20 mg | | | | | 16 10:01 | | | | | | PM PDT | | | | +-------+ +-------+---+---+ +---+---+ | | | +---+---+ + +---------+ +---------+---+---+ | promethazine (PHENERGAN) | New Bag | 10/23/19 | 6.25 mg | | | | injection 6.25-12.5 mg 6.25-12.5 | | 16 11:20 | | | | | mg, intravenous, POSTPROCEDURE | | AM PDT | | | | | PRN, 1 dose, Starting Tue10/23/15 | | | | | | | at 0847, Until Tue10/23/15 at | | | | | | | 1120, nausea/vomiting, 1st line | | | | | | + +---------+ +---------+---+---+ + +---+ | | | + +---+ | promethazine (PHENERGAN) | | | injection 1 dose, Starting Clarisa | | | 10/23/15 at 1119, Until Clarisa 10/23/15 | | | at 1120 | | + +---+ | | | + +---+ + +---------+ + +---+---+ | vancomycin (VANCOCIN) IV | New Bag | 10/23/19 | 1,000 mg | | | | (ADD-vantage) 1,000 mg 1,000 mg, | | 16 8:32 | | | | | intravenous, EVERY 12 HOURS, 1 | | PM PDT | | | | | dose, First dose on Clarisa 10/23/15 at | | | | | | | 2000 | | | | | | + +---------+ + +---+---+ +---+---+ | | | +---+---+ documented in this encounter
--- OUTSIDE RECORDS SUMMARY | ~2019-10-16 | XMS | Encounter Summary ---
Demographics + + + | Address | [address] | | | [place] [address] | + + + | Home Phone | | + + + | Preferred Language | Unknown | + + + | Marital Status | | + + + | Taoist Affiliation | Unknown | + + + | Race | White | + + + | Ethnic Group | Not or | + + + Author + + + | Author | [facility] | | | and [place] | + + + | Organization | [facility] | | [...] Team Providers + +------+ + | Care Student Services Vice President Name | Role | Phone | + +------+ + | Lance Pandya DO | PCP | | + +------+ + Reason for Visit + + + | Reason | Comments | + + + | Hospital Follow-up | | + + + Evaluate & Treat (Routine) +--------+--------+ + + + + | Status | Reason | Specialty | Diagnoses / | Referred By | Referred To | | | | | Procedures | Contact | Contact | +--------+--------+ + + + + | Closed | | Cardiology | Diagnoses | Bell, | Bell, | | | | | Hospital | Chana Gandhi MD | Chana Gandhi MD | | | | | discharge | [address] | [address] | | | | | follow-up | [address] | [address] [place] | | | | | OC/HOSP | [place], [place] | [place], [place] | | | | | [place] | [address] | [address] Phone: | | | | | Procedures | Phone: | [phone] | | | | | DE OFFICE | [phone] | Fax: | | | | | CONSULTATION | Fax: | [phone] | | | | | NEW/ESTAB | [phone] | | | | | | PATIENT 30 | | | | | | | MIN OFFICE | | | | | | | VISIT | | | | | | | REGULAR | | | +--------+--------+ + + + + Encounter Details +--------+---------+ + + + | Date | Type | Department | Care Team | Description | +--------+---------+ + + + | 03/06/ | [facility] | [facility] | Remington Prado | NSTEMI (non-ST | | 2016 | Visit | CARDIOLOGY [address] | MD Chadd [address] | elevated myocardial | | | | [place], | [address] [place] | infarction) ([facility]) | | | | [place] [address] | [place] [address] | (Primary Dx); H/O | | | | [phone] | [phone] | cerebral aneurysm | | | | | | repair; Coronary | | | | | | artery disease | | | | | | involving shoshone-paiute | | | | | | coronary artery of | | | | | | shoshone-paiute heart without | | | | | | angina pectoris | +--------+---------+ + + + Social [...] + + + | Blood Pressure | 126/86 | 03/06/2015 10:27 AM | | | | | PST | | + + + + + | Pulse | 110 | 03/06/2015 10:27 AM | | | | | PST | | + + + + + | Temperature | - | - | | + + + + + | Respiratory Rate | 18 | 03/06/2015 10:27 AM | | | | | PST | | + + + + + | Oxygen Saturation | - | - | | + + + + + | Inhaled Oxygen | - | - | | | Concentration | | | | + + + + + | Weight | 52.2 kg (115 lb) | 03/06/2015 10:27 AM | | | | | PST | | + + + + + | Height | 149.9 cm (4' 11") | 03/06/2015 10:27 AM | | | | | PST | | + + + + + | Body Mass Index | 23.23 | 03/06/2015 10:27 AM | | | | | PST [...] documented as of this encounter Progress Notes Renetta Lawson, Infectious Disease Technician - 03/06/2015 10:32 AM PSTFormatting of this note m ight be different from the original. PATIENT NAME: Cielo Bell : 1950: AGE: 65 y.o. PRIMARY CARE: Lance Pandya OUTPATIENT FOLLOW UP VISIT Date of Service: 03/06/15 PROBLEMS ADDRESSED AT THIS VISIT: Recent myocardial infarction involving the left anterior descending coronary artery Status post stenting Preoperative assessment for revision of skull surgery. HISTORY OF PRESENT ILLNESS: Cielo Bell is a 65 y.o. female who was last seen by Dr. Luu in December with a total occlusion of the left anterior descending coronary artery treated with stenting . I believe a bare metal stent was used. Only one month of Plavix was ordered. She has be en off dual antiplatelets therapy for several weeks now. She has intermittent brief twinges of discomfort in her precordium but no significant pain and no symptoms similar to the pres sure that heralded her myocardial infarction. She has no significant dyspnea with exertion although she has chronic dyspnea most likely related to pulmonary disease which, in turn, is due to prolonged smoking history. She has been unable to stop smoking post myocardial infa rction. Most recent ejection fraction if available: 55% MEDICAL, SURGICAL, AND PERSONAL HISTORY Past Medical, Surgical, Family, and Social History are reviewed in EPIC. CURRENT MEDICATIONS Current Outpatient Prescriptions Medication Sig [...] day till all are gone 30 tablet 0 famotidine (PEPCID) 20 mg tablet Take 1 [...] No current facility-administered medications for this visit. please note that the above list is an error. She is not taking clopidogrel. ALLERGIES Allergies Allergen Reactions Ciprofloxacin Nausea And Vomiting Codeine Nausea And Vomiting [place] Hives Povidone Iodine Hives Sulfa Antibiotics Other reaction(s): Erythema ROS ROS No pertinent changes. She had surgery for a cerebral aneurysm many years ago. One of the screws used to close the skull has become loose and the neurosurgeon in [facility] is planning on revising this situation. OBJECTIVE: PHYSICAL EXAM BP 126/86 mmHg | Pulse 110 | Resp 18 | Ht 1.499 m (4' 11") | Wt 52.164 kg (115 lb) | BMI 23 .21 kg/m2 General: She is comfortable and has the general appearance of a chronic smoker HEENT: Ocular movements are normal. She has no facial lesions. There is a defect in the s kull table above her right eye. Chest: Equal breath sounds and no wheezes. No chest wall tenderness. CV: Normal central venous pressure by exam. Precordium is quiet. Heart tones are normal without murmurs or gallops Abd: No tenderness hepatomegaly or masses Ext: No edema clubbing or cyanosis. Neuro: Gait and balance are normal. She has no obvious cranial nerve or motor deficits. RECENT TEST DATA: Single-vessel coronary disease 2 months ago now status post stent placem ent in the mid LAD. ASSESSMENT: Recent anterior myocardial infarction Recent stent placement in the mid left anterior descending PLAN: Elective surgery on the skull should probably be deferred for about 6 months following her myocardial infarction. If the surgery is not truly elective it can be accomplished at any t nella now. I am restarting her Plavix, attempting to give her a full 6 months of therapy prior to surg shanell. The reason for 1 month of therapy is not clear to me. Dr. Luu may choose to disc ontinue the clopidogrel when she returns to [facility]. Electronically signed by: Abrahan Prado MD [facility] 03/06/2015 Portions of this chart may have been created with [employer] voice recognition software. Occasi onal wrong-word or sound-alike substitutions may have occurred due to the inherent ortez itations of voice recognition software. Please read the chart carefully and recognize, using context, where these substitutions have occurred. documented in this encounter Plan of Treatment Not on filedocumented as of this encounter Visit Diagnoses + + | Diagnosis | + + | NSTEMI (non-ST elevated myocardial infarction) (HCC) - Primary Acute myocardial | | infarction, subendocardial infarction, episode of care unspecified | + + | H/O cerebral aneurysm repair Other postprocedural status | + + | Coronary artery disease involving shoshone-paiute coronary artery of shoshone-paiute heart without | | angina pectoris | + + documented in this encounter
--- OUTSIDE RECORDS SUMMARY | ~2019-10-16 | XMS | Encounter Summary ---
Demographics + + + | Address | [address] | | | [place] [address] | + + + | Home Phone | | + + + | Preferred Language | Unknown | + + + | Marital Status | | + + + | Sikhism Affiliation | MET | + + + | Race | White | + + + | Ethnic Group | Not or | + + + Author + + + | Author | [facility] | + + + | Organization | [facility] | + + + | Address [...] Team Providers + +------+ + | Care Creel Clerk Name | Role | Phone | [...] | | | | | [address] [place], | | | | | | [place] [address] | | | +--------+--------+ + + + [...]
--- OUTSIDE RECORDS SUMMARY | ~2019-10-16 | XMS | Encounter Summary ---
Demographics + + + | Address | [address] | | | [place] [address] | + + + | Home Phone | | + + + | Preferred Language | Unknown | + + + | Marital Status | | + + + | Cheondoism Affiliation | MET | + + + [...] Team Providers + +------+ + | Care Facing Machine Operator Name | Role | Phone | + +------+ + | Remington Camacho MD | PCP | | + +------+ + Encounter Details +--------+ + + + + | Date | Type | Department | Care Team | Description | +--------+ + + + + | 09/17/ | Telephone | Neurosurgery at | Paramjit Huber MD | | | 2015 | | [facility] [address] | [address] | | | | | [address] [facility] | [place], [place] | | | | | [facility], | [address] | | | | | Building [address] | [phone] | | | | | floor [place], [place] | | | | | | [address] | | | | | | [phone] | | | +--------+ + + + [...] this encounter Miscellaneous Notes Telephone Encounter - Renetta Maher PA - 09/22/2015 12:29 PM [facility] Cardiology [facility] note reviewed (from Dr. Chana Luu). Patient currently requiring oxygen via NC, had MRI in 12/2014. Dr. Luu has cleared her for surgery. Patient is currently off plavix. Patient currently scheduled to see Dr. Huber and [facility] with on 10/03/2015 for clearance. Avani ctronically signed by ANSON Vasquez at 09/22/2015 12:34 PM PDTTelephone Encounter - Park Burnett - 09/19/2015 12:39 [facility] received, saved in Media tab. elephone Enc ounter - Park Ball - 09/19/2015 9:48 AM PDTFax to patient's sanitation lead requesting recent chart note and note of clearance for surgery. Verified successfully sent.Electronic ally signed by Park Ball at 09/19/2015 9:52 AM PDTTelephone Encounter - Niesha Burt PA-C - 09/18/2015 12:17 PM [id number] with h/o aneurysmal SAH 2' acomm artery aneurysm, secur ed via R pterional crani 10/18/2007. Developed a L neck MRSA abscess 02/2008, seen in the ED and treated with 10d course oral doxy. Followed up with Dr Huber in clinic and noted to yina coyle new ataxia. CT obtained and confirmed post-hemorrhagic HCP. R VPS (Medium pressure, PS m edical) placed 04/12/2008. Seen in clinic 01/10/2015 with exposed R cranial screw. Recommeded for hardware explant, wo und washout but was on a 6mos course of plavix for recent NSTEMI and LAD stent (starting Dec). Now off plavix per Cardiology (Dr. Chana Luu), also on beta-mukul, statin, and depend ent on NC oxygen. Needs clinic eval, PMC for R cranial hardware explant. Pls schedule appt with Dr. Huber and PMC with . Would also benefit from pre-op clearance from her Leather Staker, Dr Bell nettles or surgery. elephone Encounter - Park Quintana - 09/18/2015 11:02 AM PDTNichelleuler received call from Dr Edward office. The y asked we contact patient with next appointment to schedule surgery. Patient was supposed to call us in June and did not but she did discontinue some medications. She will want new m edication instructions prior to her new appointment. I have called patient and left vm for h er to call me and schedule. Please advise if she should talk to triage for medication instr uction. documented in thi s encounter Plan of Treatment Not on filedocumented as of this encounter Visit Diagnoses Not on filedocumented in this encounter"
--- OUTSIDE RECORDS SUMMARY | ~2019-10-16 | XMS | Encounter Summary ---
Demographics + + + | Address | [address] | | | [place] [address] | + + + | Home Phone [...] + + + | Author | [facility] | + + + | Organization | [facility] | + + + | [...] Team Providers + +------+ + | Care Linoleum Floor Installer Name | Role | Phone | + +------+ + | No Pcp Per Patient | PCP | Unavailable | + +------+ + Encounter Details +--------+ + + + + | Date | Type | Department | Care Team | Description | +--------+ + + + + | 12/26/ | Documentati | Infectious | Saskia Nicolas MD | | | 2018 | on | Diseases at [facility] | [address] | | | | | [address] | [address] | | | | | [address] Phys[address] | [place], [place] | | | | | [place], [facility] floor | [address] | | | | | [place], [place] | [phone] | | | | | [address] | | | | | | [phone] | | | +--------+ + + + [...]
--- OUTSIDE RECORDS SUMMARY | ~2019-10-16 | XMS | Encounter Summary ---
Demographics + + + | Address | [address] | | | [place] [address] | + + + | Home Phone | | + + + | Preferred Language | Unknown | + + + | Marital Status | | + + + | Confucianism Affiliation | MET | + + + | Race | White | + + + | Ethnic Group | Not or | + + + Author + + + | Author | [facility] | + + + | Organization | [facility] | + + + | Address | [...] Team Providers + +------+ + | Care Job Developer For Deaf Adults Name | Role | Phone | + +------+ + | Mary Vazquez PA-C | PCP | | + +------+ + Encounter Details +--------+ + + + + | Date | Type | Department | Care Team | Description | +--------+ + + + + | 10/25/ | Procedure | [address] | | | | 2019 | Pass | [address] | | | | | | [address] [facility] | [facility] | [facility] Admitting | | | | | | Desk Located on the | | | | | | 9th floor | | | | | | [place], [place] | | | | | | [address] | | | +--------+ + + + [...]
--- OUTSIDE RECORDS SUMMARY | ~2019-10-16 | XMS | Encounter Summary ---
Demographics + + + | Address | [address] | | | [place] [address] | + + + | Home Phone | | + + + | Preferred Language | Unknown | + + + | Marital Status | | + + + | Sikh Affiliation | MET | + + + | Race | White | + + + | Ethnic Group | Not or | + + + Author + + + | Author | [facility] | + + + | Organization | [facility] | + + + | Address | [...] Team Providers + +------+ + | Care Injection Molding Engineer Name | Role | Phone | + +------+ + | Mary Vazquez PA-C | PCP | | + +------+ + Encounter Details +--------+ + + + + | Date | Type | Department | Care Team | Description | +--------+ + + + + | 09/14/ | Procedure | Diagnostic Imaging | | | | 2018 | Pass | Services at [facility] | | | | | | [address] | | | | | | [place] [facility] | | | | | | [facility], [address] [place] [address] | | | | | | [place], [place] | | | | | | [address] | | | | | | [phone] | | | +--------+ + + + [...]
--- OUTSIDE RECORDS SUMMARY | ~2019-10-16 | XMS | Encounter Summary ---
Demographics + + + | Address | [address] | | | [place] [address] | + + + | Home Phone [...] + + + | Author | [facility] | | | and [place] | + + + | Organization | [facility] | | [...] Team Providers + +------+ + | Care Basketball Scout Name | Role | Phone | + +------+ + PCP | Unavailable | + +------+ + Encounter Details +--------+ + + + + | Date | Type | Department | Care Team | Description | +--------+ + + + + | 06/12/ | Hospital | [facility] | | | | 1991 | Encounter | [facility] | | | | | | [address] | | | | | | [place] | | | | | | [address] | | | | | | [phone] | | | +--------+ + + + [...]
--- OUTSIDE RECORDS SUMMARY | ~2019-10-16 | XMS | Encounter Summary ---
Demographics + + + | Address | [address] | | | [place] [address] | + + + | Home Phone | | + + + | Preferred Language | Unknown | + + + | Marital Status | | + + + | Alevism Affiliation | MET | + + + | Race | White | + + + | Ethnic Group | Not or | + + + Author + + + | Author | [facility] | + + + | Organization | [facility] | + + + | [...] Team Providers + +------+ + | Care Settlement Worker Name | Role | Phone | + +------+ + | No Pcp Per Patient | PCP | Unavailable | + +------+ + Encounter Details +--------+ + + + + | Date | Type | Department | Care Team | Description | +--------+ + + + + | 01/05/ | Documentati | Infectious | Saskia Nicolas MD | | | 2018 | on | Diseases at [facility] | [address] | | | | | [address] | [address] [place] | | | | | [address] | [place], [place] | | | | | [place], [facility] floor | [address] | | | | | [place], [place] | [phone] | | | | | [address] | | | | | | [phone] | | | +--------+ + + + [...]
--- OUTSIDE RECORDS SUMMARY | ~2019-10-16 | XMS | Encounter Summary ---
Demographics + + + | Address | [address] | | | [place] [address] | + + + | Home Phone | | + + + | Preferred Language | Unknown | + + + | Marital Status | | + + + | Judaism Affiliation | Unknown | + + + | Race | White | + + + | Ethnic Group | Not or | + + + Author + + + | Author | [facility] | | | and [place] | + + + | Organization | [facility] | | | and [...] Team Providers + +------+ + | Care Administrative Tech Name | Role | Phone | + +------+ + PCP | Unavailable | + +------+ + Encounter Details +--------+ + + + + | Date | Type | Department | Care Team | Description | +--------+ + + + + | 05/20/ | Hospital | [facility] | | | | 1991 - | Encounter | MED CTR GENERIC IP | | | | | | CONV DEPT [address] | | | | 05/24/ | | [address], | | | | 1992 | | [place] [address] | | | | | | [phone] | | | +--------+ + + + [...]
--- OUTSIDE RECORDS SUMMARY | ~2019-10-16 | XMS | Encounter Summary ---
Demographics + + + | Address | [address] | | | [place] [address] | + + + | Home Phone | | + + + | Preferred Language | Unknown | + + + | Marital Status | | + + + | Christian Affiliation | MET | + + + [...] Team Providers + +------+ + | Care Scheduler Conveyor Name | Role | Phone | + [...] Closed | | Radiology | Diagnoses | Clint, | | | | | | | Nettie Smart, | | | | | | Osteomyeliti | [place] [address] | | | | | | s, | Geovanni Boykin | | | | | | unspecified | Nora Funes | | | | | | site, | [place], [place] | | | | | | unspecified | [address] | | | | | | type (HCC) | Phone: | | | | | | Skull defect | [phone] | | | | | | Procedures | Fax: | | | | | | CT | [phone] | | | | | | STEREOTACTIC | | | | | | | HEAD W | | | | | | | CONTRAST | | | +--------+--------+ + + + + Encounter Details +--------+ + + + + | Date | Type | Department | Care Team | Description | +--------+ + + + + | 01/03/ | Documentati | Neurosurgery at | Nettie Jaramillo | | | 2018 | on | [facility] [address] | [place], [place] [address] | | | | | e [facility] for | [address] | | | | | Health and Healing, | [place], [place] | | | | | [address] | [address] | | | | | floor [place], [place] | [phone] | | | | | [address] | | | | | | [phone] | | | +--------+ + + + [...] this encounter Miscellaneous Notes Telephone Encounter - Sauser, Park L - 01/19/2018 8:21 AM PSTCalled patient, notified h er of prescription. Created letter for appointments and will be mailed by PAS.Electronicall y signed by Park Ball at 01/19/2018 8:22 AM PSTTelephone Encounter - Oumou Jaramillo PA - 01/19/2018 8:05 AM PSTThank you, Zakiya! Will you also relay to Ms Bell that I' ve ordered prednisone again for her CT since it will be w/ contrast. She's the gal who asked for everything to be sent in writing. Thank you. Gina coyle Encounter - Park Ball - 01/19/2018 8:02 AM PSTCalled patient appointments for cli jah, CT, PMC and an appointment with Dr White have been scheduled for 02/24/18. Synthes contact ed, called Chana Ledesma to let her know of the CT date. elephone Encounter - Nettie Jaramillo PA - 01/17/2018 8:[address] Huber, will patient will need CT head wwo contrast in one month (OK to add syn thetic cranioplasty) and RTC to review imaging and arrange surgery date; PMC-MD visit. If c an arrange for Ms Bell to see Dr White that would be great, if he wants to see her. Regard less, will need coordinated surgery date, hopefully, within 30 days of PMC for synthetic concrete craftsman nioplasty. eale Granger - Nettie Jaramillo PA - 01/16/2018 2:[address] Huber regarding head CT findings and his recommendations for when patient should return to clinic for CT syn thes cranioplasty, clinic visit with NSG and Dr White. elephone Encounter - Marni Manning PA-C - 01/12/20 18 4:[address] Huber review imaging, given holiday there will likely be a bianca y. Will plan to discuss on Tuesday 01/16. CTH read below; elephone Noel tony - Park Ball - 01/10/2018 2:24 PM PSTCall to [facility], spoke to hector Raygoza completed 01/09. Imaging being pushed now.Electronically signed by Park Ball at 2:25 PM PSTTelephone Encounter - Edita Cox LPN - 01/06/2018 2:12 PM PS TCalled patient to see if she could schedule her CT early next week. Patient reports that she has already taken care of this. Patient is scheduled for CT Tuesday morning (01/10). Advised that we would keep an eye for the images. elephone Encounter - Selene Reyna MA - 2018 9:03 AM PSTCT order has been faxed to [facility] at fax number [phone]. Transmission of fax confirmed 01/04/18 at 9:59AM. Routing to managed care for insurance authorization. elephone Encounter - Nettie Jaramillo PA - 01/03/2018 1:4 [address] wwo contrast to be performed on 01/09 or 01/10 at [facility] in [place] in follow up of epidural abscess/osteomyelitis. Please fax CT to facility to day. Additionally, electronically have sent prescription for prednisone for pre-treatment of bet adine allergy to patient's pharmacy ([facility] in [place]). Ms Bell will call us once CT is arranged so that we can get imaging pushed for Dr Huber' s and Maria Isabel's review. documented in this encounter Plan of Treatment Not on filedocumented as of this encounter Results CT STEREOTACTIC HEAD W [...] type (HCC) - Primary | + + | Skull defect Unspecified acquired deformity of head | + + documented in this encounter"
--- OUTSIDE RECORDS SUMMARY | ~2019-10-16 | XMS | Encounter Summary ---
Demographics + + + | Address | [address] | | | [place] [address] | + + + | Home Phone | | + + + | Preferred Language | Unknown | + + + | Marital Status | | + + + | Congregation Affiliation | Unknown | + + + | Race | White | + + + | Ethnic Group | Not or | + + + Author + + + | Author | [facility] | | | and [place] | + + + | Organization | [facility] | | | and [...] Team Providers + +------+ + | Care Baker Paint Name | Role | Phone | + +------+ + | Lance Pandya DO | PCP | | + +------+ + Reason for Visit +--------+--------+ + | Reason | Onset | Comments | | | Date | | +--------+--------+ + | Other | 03/05/ | question about plavix | | | 2016 | | +--------+--------+ + Encounter Details +--------+ + + + + | Date | Type | Department | Care Team | Description | +--------+ + + + + | 03/05/ | Telephone | [facility] | Chana Luu, | Other (question | | 2017 | | CARDIOLOGY [address] | MD [address] | about plavix) | | | | [place], | [place] | | | | | [place] [address] | [address] | | | | | [phone] | | | +--------+ + + + [...] encounter Miscellaneous Notes Telephone Encounter - Lucille Costa RN - 03/05/2016 9:11 AM PSTSheryl called to find o ut if she needs to be on the plavix. She is advised that she does not. .................... .......................Lucille Costa RN on 03/05/16 at 9:12 documented in this encounter Plan of Treatment Not on filedocumented as of this encounter Visit Diagnoses Not on filedocumented in this encounter"
--- OUTSIDE RECORDS SUMMARY | ~2019-10-16 | XMS | Encounter Summary ---
Demographics + + + | Address | [address] | | | [place] [address] | + + + | Home Phone | | + + + | Preferred Language | Unknown | + + + | Marital Status | | + + + | Confucianist Affiliation | MET | + + + [...] Team Providers + +------+ + | Care Herb Grower Name | Role | Phone | + [...] | | | | | [facility] | [place], [place] | | | | | Health and Healing, | [address] | | | | | Building [address] | [phone] | | | | | floor [place], [place] | | | | | | [address] | | | | | | [phone] | | | +--------+ + + + [...] Renetta Maher PA - 09/22/2015 12:29 PM [facility] note reviewed (from Dr. Chana Luu). Patient currently requiring oxygen via NC, had MRI in 12/2014. Dr. Luu has cleared her for surgery. Patient is currently off plavix. Patient currently scheduled to see Dr. Huber and [facility] with on 10/03/2015 for clearance. Avani ctronically signed by [place] Vasquez at 09/22/2015 12:34 PM PDTTelephone Encounter - Park Burnett - 09/19/2015 12:39 [place] [facility] [place] [facility] received, saved in Media tab. elephone Enc ounter - Park Ball - 09/19/2015 9:48 AM PDTFax to patient's egg candler requesting recent chart note and note of clearance for surgery. 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 elephone Encounter [...]
--- OUTSIDE RECORDS SUMMARY | ~2019-10-16 | XMS | Encounter Summary ---
Demographics + + + | Address | [address] | | | [place] [address] | + + + | Home Phone [...] Team Providers + +------+ + | Care Metal Sprayer Protective Coating Name | Role | Phone | + [...] | | | | | | | [address] | | | | | | | [id number] | | | | | | | [facility] | | | | | | | [place], | | | | | | | [place] [address] | | | | | | | Phone: | | | | | | | [phone] | +--------+--------+ + + + + Encounter Details +--------+ + + + + | Date | Type | Department | Care Team | Description | +--------+ + + + + | 05/13/ | Hospital | [facility] [address] | Paramjit Huber MD | | | 2008 - | Encounter | [address] | [address] | | | | | [id number] [facility] | [place], [place] | | | 05/14/ | | HOSPITAL [place], | [address] | | | 2008 | | [place] [address] | [phone] | | | | | [phone] | | | +--------+ + + + [...] s and received VPS 04/12/08. Principal Procedure: ROCK DRILL OPERATOR shunt tap Additional Procedures: Observation Hospital Course: [...] s and received VPS 04/12/08. Principal Procedure: ROCK DRILL OPERATOR shunt tap Additional Procedures: Observation Reason for [...] call and ask for the Neurosurgery resident information scientist if you have any of the following: [...] follow-up appointment with Dr. Huber at the [facility] on the 8th floor of the [facility]: Please call to make or confirm your [...] extremitiy flexors and extensors as well as colloid mill operator and intrinsic muscles of the hand, 5/5 [...] AM Discharging Attending: MD ALLI Woods MD [place] [address] [address] INPATIENT NURSE ORDER FOR DISCHARGE AND INTERDISCIPLINARY [...] ML, palate symmetric Motor Bi Tri Delt Stiff Straw Hat Washer Wfl WEx Hfl Hex Lfl Dajuan Dfl [...] are indicated. Patient independent with [facility], transferring on/off toilet, and is at baseline for ADLs. No OT eval intitiated. NISREEN CRAIN OT [facility] 1OK [address] [id number] [place] [address] can - Jared Liuul ty - 05/14/2008 12:36 PM PDT Scan - Noe, Faculty - 05/14/2008 12:36 PM PDT Plan of Care - Valerie Bowden - 05/14/2008 10:12 AM PDTPT Note: Chart reviewed. Spoke with guillaume kenyetta nd , patient currently without mobility deficits, both feel she is [facility] and she will resune outpatient services when she gets home. Will sign off . [place] [id number] signed by Valerie Bowden at 05/14/2008 10:13 AM PDTPlan of Care - Sonali Louis - 05/14/2008 7:47 AM PDTProblem: Case Managment Goals Goal: Discharge Needs Met 58 yr old female admitted s/p 05/10 ROCK DRILL OPERATOR shunt placement for s/s possible shunt/wound infectio ns. Awaiting results of CSF cx, plan for possible [place] for shunt removal/IV abx. Pt lives in [place] with spouse. Case mgt to follow for dc needs. [id number] [id number] documented in this encounter Plan of Treatment [...] | + + + + + | [facility] | [address] [facility] | [place] [address] | | | PATHOLOGY | [address] | | | + + + + + | [facility] | [address] [place] [address] | [place] [address] | | | PATHOLOGY | [address] [...] | + + + + + | [facility] | [address] [place] [address] | [place] [address] | | | PATHOLOGY | [address] | | | + + + + + | [facility] | [address] [place] [address] [address] | [place] [address] | | | PATHOLOGY | [address] [...] | + + + + + | [facility] DEPARTMENT OF | [address] | [place] [address] | | | PATHOLOGY | [address] | | | + + + + + | [facility] DEPARTMENT OF | [address] | [place] [address] | | | PATHOLOGY | [address] [...] | + + + + + | [facility] DEPARTMENT OF | [address] | [place] [address] | | | PATHOLOGY | [address] | | | + + + + + | [facility] DEPARTMENT OF | [address] | [place], [place] [address] | | | PATHOLOGY | [address] [...] DEPARTMENT OF | [address] | [place] [address] | | | PATHOLOGY | [address] | | | + + + + + | [facility] DEPARTMENT OF | [address] [facility] | [place] [address] | | | PATHOLOGY | [address] [...] | DEPARTMENT | | | | Processing:Ext [id number] | | OF | | | | [...] DEPARTMENT OF | [address] | [place] [address] | | | PATHOLOGY | [address] | | | + + + + + | [facility] DEPARTMENT OF | [address] | [place] [address] | | | PATHOLOGY | [address] [...] | + + + + + | [facility] DEPARTMENT OF | [address] | [place] [address] | | | PATHOLOGY | [address] | | | + + + + + | [facility] DEPARTMENT OF | [address] | [place] [address] | | | PATHOLOGY | [address] [...] DEPARTMENT OF | [address] | [place] [address] | | | PATHOLOGY | [address] | | | + + + + + | [facility] DEPARTMENT OF | [address] | [place] [address] | | | PATHOLOGY | [address] [...] DEPARTMENT OF | [address] | [place] [address] | | | PATHOLOGY | [address] | | | + + + + + | [facility] DEPARTMENT | [address] | [place] [address] | | | PATHOLOGY | [address] [...] DEPARTMENT OF | [address] | [place] [address] | | | PATHOLOGY | [address] | | | + + + + + | [facility] DEPARTMENT OF | [address] | [place] [address] | | | PATHOLOGY | [address] [...] | + + + + + | [facility] DEPARTMENT OF | [address] | [place] [address] | | | PATHOLOGY | [address] | | | + + + + + | [facility] DEPARTMENT OF | [address] | [place] [address] | | | PATHOLOGY | [address] [...] DEPARTMENT OF | [address] | [place] [address] | | | PATHOLOGY | [address] | | | + + + + + | [facility] DEPARTMENT OF | [address] | [place] [address] | | | PATHOLOGY | [...] | + + + + + | [facility] | [facility] | [place] [address] | | | PATHOLOGY | [address] | | | + + + + + | [facility] DEPARTMENT OF | [facility] | [place] [address] | | | PATHOLOGY | [address] [...] | + + + + + | [facility] | [address] [facility] | [place] [address] | | | PATHOLOGY | [address] | | | + + + + + | [facility] | [facility] [facility] | [place] [address] | | | PATHOLOGY | [address] [...] at | | | | | | [facility]. Culture: | | | | | | [...] | + + + + + | [facility] | [address] | [place] [address] | | | LAB-MICRO | | | [...]
--- OUTSIDE RECORDS SUMMARY | ~2019-10-16 | XMS | Encounter Summary ---
Demographics + + + | Address | [address] | | | [place] [address] | + + + | Home Phone [...] + + + | Author | [facility] | + + + | Organization | [facility] | + + + | [...] Team Providers + +------+ + | Care Infrastructure Analyst Name | Role | Phone | + +------+ + | Mary Vazquez PA-C | PCP | | + +------+ + Encounter Details +--------+ + + + + | Date | Type | Department | Care Team | Description | +--------+ + + + + | 12/05/ | Procedure | [address] | | | | 2018 | Pass | [address] | | | | | | [address] [facility] | | | | | | Hospital Admitting | | | | | | Desk Located on the | | | | | | 9th floor | | | | | | [place], [place] | | | | | | [address] | | | +--------+ + + + [...]
--- OUTSIDE RECORDS SUMMARY | ~2019-10-16 | XMS | Encounter Summary ---
Demographics + + + | Address | [address] | | | [place] [address] | + + + | Home Phone | | + + + | Preferred Language | Unknown | + + + | Marital Status | | + + + | Hoahaoism Affiliation | MET | + + + | Race | White | + + + | Ethnic Group | Not or | + + + Author + + + | Author | [facility] | + + + | Organization | [facility] | + + + | Address [...] Team Providers + +------+ + | Care Control Chemist Name | Role | Phone | + [...] | | | | | | | [id number] | | | | | | | [facility] | | | | | | | [place], | | | | | | | [place] [address] | | | | | | | Phone: | | | | | | | [phone] | | | | | | | Fax: | | | | | | | [phone] | +--------+--------+ + + + + Encounter Details +--------+ + + + + | Date | Type | Department | Care Team | Description | +--------+ + + + + | 10/17/ | Hospital | [facility] [address] | Magnolia Diego MD | | | 2007 - | Encounter | [address] | [address] | | | | | [id number] [facility] | [facility] [place] | | | 11/01/ | | HOSPITAL [place], | [address] | | | 2007 | | [place] [address] | [phone] | | | | | [phone] | | | +--------+ + + + [...] + + + | Blood Pressure | 128/68 | 11/02/2007 1:15 PM | | | | | PDT | | + + + + + | Pulse | 88 | 11/02/2007 1:15 PM | | | | | PDT | | + + + + + | Temperature | 36.9 C (98.4 F) | 11/02/2007 1:15 PM | | | | | PDT | | + + + + + | Respiratory Rate | 16 | 11/02/2007 1:15 PM | | | | | PDT | | + + + + + | Oxygen Saturation | 97% | 11/02/2007 1:15 PM | | | | | PDT | | + + + + + | Inhaled Oxygen | - | - | | | Concentration | | | | + + + + + | Weight | 56.8 kg (125 lb 3.5 | 10/18/2007 5:00 AM | | | | oz) | PDT | | + + + + + | Height | 167.6 cm (5' 6") | 10/18/2007 5:00 AM | | | | | PDT | | + + + + + | Body Mass Index | 20.21 | 10/18/2007 5:00 AM | | | | | PDT | | + + + + + documented in this encounter Discharge Summaries Other, Faculty - 11/02/2007 2:59 PM PDT Other, Faculty - 11/02/2007 2:59 PM PDT Other, Faculty - 11/02/2007 2:59 PM PDT Vinay Bolaños - 11/01/2007 9:07 AM PDTFormatting of thi s note might be different from the original. INPATIENT PROVIDER DISCHARGE SUMMARY Discharge Date: 10/31/2007 Service: Neurosurgery Principal Final Diagnosis: Subarachnoid hemorrhage and anterior communicating artery aneurysm. Principal Procedure: 1. Right pterional craniotomy and clipping of anterior communicating artery aneurysm. 2. Intraoperative high-powered microscopic dissection Additional Procedures: Subclavian triple lumen catheter Bronchoscopy Speech therapy PT OT Reason for Admission, Significant Findings, Treatment, and Complications Brief Hospital Course: 57 yo female with intermittent headaches for 2 weeks prior to admission related to L ear i nfection. Headache became suddenly more severe on evening of 10/16. Pt stood up clutching hea d and then fell to the ground +LOC. Taken by family to ED with reported posturing and agonal respirations in transport and on arrival with GSC 3 on arrival to [facility] ED. Intubated emergen tly; received midaz and pancuronium. Per report - gastric contents suctioned from ETT. CT he ad obtained & found to have SAH & transferred to [facility]. Pt was intubated and admitted to the ICU, pt got left subclavian triple lumen catheter and bronchoscopy. Pt was taken to the rig ht crani for clipping of aneurysm for the SAH. Speech therapy, physical therapy, occupation al therapy saw patient. They seemed that she had SNF level needs however no funding. The M Morenita spoke extensively with the , Hu, who understands that she ll need [address] home. Discharge Medications: New medications prescribed at discharge: Medication Sig Dispense Refill docusate sodium (COLACE) 100 mg Oral Capsule take 1 capsule (100 mg) by oral route once daily at bedtime as needed 60 0 nimodipine 30 mg Oral Capsule 2 Cap Oral EVERY 4 HOURS. Take until gone. Get filled a t [facility]. 100 0 oxycodone immediate release 5 mg Oral Tablet 5-15 mg Oral EVERY 3 HOURS NEEDED 200 0 pravastatin 20 mg Oral Tablet 2 Tab Oral AT BEDTIME until gone 30 0 Current Medication List Not on File Diet: Rec start [facility] soft diet with thin liquids as quiana, upright 90 degrees for all po, castillo pervision for all intake, d/c po for decreased pulmonary status Activity: no driving on pain meds Special Instructions: (Treatment, Equipment, Supplies, Dressings, LAB follow-up) Weigh daily: no Call: Neurosurgery Resident at If you have any of the following: Difficulty breathing or unusual shortness of breath Excessive bleeding, drainage at the operative site Fevers, chills, increased pain that is not relieved by pain medications Persistent nausea or vomiting Follow Up Appointments: Dr Diego in 2 weeks, please call for appointment: [phone] Follow Up Tests: (Tests at [facility] must be entered into [facility]) Condition On Discharge: stable Vital Signs at discharge as appropriate: BP: 139/74 mmHg (10/31/07 7:14 AM) Pulse: 87 (10/31/07 7:14 AM) Resp: 18 (10/31/07 7:14 AM) Wt - Scale: 56.8 kg (125 lbs 3.5 oz) (10/18/07 5:00 AM) Discharge Patient To: Home Discharging Provider: KITA BUTLER MD Discharging Attending: Magnolia Diego documented in this encounter Discharge Instructions Instructions Fahad Heck RN - 10/31/2007Formatting of this note might be different fro m the original. INPATIENT PROVIDER DISCHARGE AND INTERDISCIPLINARY INSTRUCTIONS Discharge Date: 10/31/2007 Service: Neurosurgery Principal Final Diagnosis: Subarachnoid hemorrhage and anterior communicating artery aneurysm. Principal Procedure: 1. Right pterional craniotomy and clipping of anterior communicating artery aneurysm. 2. Intraoperative high-powered microscopic dissection Additional Procedures: Subclavian triple lumen catheter Bronchoscopy Speech therapy PT OT Reason for Admission, Significant Findings, Treatment, and Complications Brief Hospital Course: 57 yo female with intermittent headaches for 2 weeks prior to admission related to L ear i nfection. Headache became suddenly more severe on evening of 10/16. Pt stood up clutching hea d and then fell to the ground +LOC. Taken by family to ED with reported posturing and agonal respirations in transport and on arrival with GSC 3 on arrival to [facility] ED. Intubated emergen tly; received midaz and pancuronium. Per report - gastric contents suctioned from ETT. CT he ad obtained & found to have SAH & transferred to [facility]. Pt was intubated and admitted to the ICU, pt got left subclavian triple lumen catheter and bronchoscopy. Pt was taken to the [facility] for clipping of aneurysm for the SAH. Speech therapy, physical therapy, occupation al therapy saw patient. They seemed that she had SNF level needs however no funding. The Tom Xavier spoke extensively with the , Hu, who understands that she ll need [address] home. Discharge Medications: Current Medication List Not on File Diet: Rec start [facility] soft diet with thin liquids as quiana, upright 90 degrees for all po, castillo pervision for all intake, d/c po for decreased pulmonary status Activity: no driving on pain meds Special Instructions: (Treatment, Equipment, Supplies, Dressings, LAB follow-up) Weigh daily: no Call: Neurosurgery Resident at If you have any of the following: Difficulty breathing or unusual shortness of breath Excessive bleeding, drainage at the operative site Fevers, chills, increased pain that is not relieved by pain medications Persistent nausea or vomiting Follow Up Appointments: Dr Diego in 2 weeks, please call for appointment: [phone] Follow Up Tests: (Tests at [facility] must be entered into [facility]) Condition On Discharge: stable Vital Signs at discharge as appropriate: BP: 139/74 mmHg (10/31/07 7:14 AM) Pulse: 87 (10/31/07 7:14 AM) Resp: 18 (10/31/07 7:14 AM) Wt - Scale: 56.8 kg (125 lbs 3.5 oz) (10/18/07 5:00 AM) Discharge Patient To: Home Does patient have a planned readmission: No Discharge Summary Completed?: No Discharging Provider: KITA BUTLER MD Date Completed: 10/31/2007 Time Completed: 9:30am Discharging Attending: Magnolia Diego INPATIENT NURSE ORDER FOR DISCHARGE AND INTERDISCIPLINARY INSTRUCTIONS DISCHARGE DATE: 11/02/2007 PATIENT EDUCATION: Patient given the following printed education materials: nimodipine ins tructions from [employer] and [employer]. Review with patient/family: Understanding of disease/injury/surgical repair: Yes Signs/symptoms that they should report: Yes Understanding of medications and side effects: Yes Activity and diet instructions: Yes Follow-up appointments:Yes Any concerns/fears: Yes Smoking Cessation Counseling/Information was given: Not applicable Additional Instructions: (ex: wound care, tube feeding, trach care, CBG monitoring etc.) If you have any questions or concerns please call Neurosurgery at [phone] any time of day. If you notice any of the following symptoms, please call Neurosurgery immediately: increase d head, neck or back pain, sudden dizziness, drowsiness or loss of consciousness, any numbne ss, tingling or paralysis. Inspect your incision site daily and call Neurosurgery if you notice any signs of infection , bleeding, leakage, swelling or redness. You can get your incision wet, but do not soak it in water (i.e. No hot tubs or swimming) and do not remove the sutures. Nimodipine: please review the instructions for taking your nimodipine. Nimodipine is an imp ortant drug used for reducing vasospasm and increasing blood flow and oxygenation to the bra in. Symptoms of vasospasm can include, sleepinesss, changes in consciousness, one-sided faci moody droop, slurred speech and can include many other motor or sensory changes. Be sure to drink plenty of fluids each day, approximately 1.5-2 liters per day. The catheter is meant to make the muscel of the bladder smaller. This needs to stay in unti l early next week. Contact a medical provider where you live to get this out early next week . Keep catheter clean, drain three times a day. If it gets pulled out and you can not void, you must see either the provider you have chose n or go to emergency room. Personal Effects/Medications: Discharged Via: Mode of Transportation: Car Accompanied by: Transport Company Name: (when applicable) Discharge Nurse: MADDY KEMP Date: 11/02/2007 Discharge Time: 9:34 AM AttachmentsThe following attachments cannot be sent through Care Everywhere.Medication Advi sor 2006.1: Nimodipine, Oraldocumented in this encounter Medications at Time of Discharge + + + +---------+ + + | Medication | Sig | Dispensed | Refills | Start | End Date | | | | | | Date | | + + + +---------+ + + | nimodipine 30 mg | 2 Cap Oral EVERY 4 | 100 | 0 | 10/18/19 | | | Oral Capsule | HOURS. Take until | | | 08 | 8 | | | gone. Get filled at | | | | | | | [facility]. | | | | | + + + +---------+ + + documented as of this encounter Progress Notes Liz Ramírez - 11/02/2007 2:08 PM PDTOccupational Therapy Treatment S: Patient's stating they want to go home as soon as possible. O: Upon discussion with , they have shower chair, BSC, walkers and wheelchairs at h ome. reports he is independent with transfers and declines demonstrating for this t herapist. Discussed fall reduction techniques and toilet and shower transfers without demon stration with pt/. Encouraged to be present during self-feeding and that he will need to frequently cue her to progress through tasks. Patient verbalizes understanding to all recommendations and instruction. A: appears to understand education provided, but refuses to demonstrate. P: Patient will likely DC today vs. Tomorrow. Will f/u as needed. Time spent: 2267 - [phone] LIZ RAMÍREZ OT [facility] [address] [place] [address] oMaddy pedraza - 10/22 11:35 AM PDTPT Treatment 57 y/o female with two week h/o headache accociated with L ear infection presented to an [facility] 10/17/07 and found to have a SAH. Transferred to [facility] for care. Now s/p A-com aneurysm clip ping with EVD. Pt extubated 10/19/07. Re-intubated 10/22/07 with respiratory distress. Extubat ed 10/24/2007. Procedures: S/p clipping of A-comm aneurysm with EVD placement Subjective: Pt's reports he thinks he has a walker at home and has a wheelchair. Objective: Mobility: Sit to stand min assist with significant apraxia. Standing balance with min ass ist with FWW. Standing balance without UE support of FWW with mod SCRAP SEPARATOR of 1 with R trunk danny n and unsteadiness. Transfers min assist with FWW with verbal cues to direct pt with distra ctions. Gait for 90 ft with min assist up to mod assist with FWW with pt getting walker too far ahead and unsteadiness, R trunk lean. Gait without FWW with mod magnetic healer of 1. Assessment: Impression: Pt with motor apraxia, impaired standing and gait unsteadiness wi th R trunk lean. Pt requires physical assistance for all functional mobility. Recommend SNF vs IP rehab, however pt without insurance. reports he feels he can physically manag e pt at home. Quality of participation: good Goals Due Date: 11/17/07 1. SBA supine to sit. Sit to supine mod assist. 2. SBA sit to stand and bed to chair transfer.-Making progress. 3. CGA dynamic standing balance x 5 minutes. Making progress. 4. Gait for 200 ft with CGA with FWW. Making progress. 5. Caregiver I assisting pt with functional mobility. Initiated. Recommend continued traini ng. 6. I with HEP.New goal Discharge equipment recommendations: FWW, wheelchair Plan Home with per MD. Maddy Kern, PT, NCS 11/02/2007 Electronically signed by Maddy Kern at 11:49 AM PDTVondMaddy acevedo - 11/01/2007 3:34 PM PDTPT Treatment SubjecAdmitting Diagnosis: subarachnoid hemorrhage 57 y/o female with two week h/o headache accociated with L ear infection presented to an [facility] 10/17/07 and found to have a SAH. Transferred to [facility] for care. Now s/p A-com aneurysm clip ping with EVD. Pt extubated 10/19/07. Re-intubated 10/22/07 with respiratory distress. Extubat ed 10/24/2007. Procedures: S/p clipping of A-comm aneurysm with EVD placement Subjective: reports he can provide 24 hour care at home "they are kicking her out of the hospital." Objective: Sitting posture: pt with R c-spine and trunk flexion. PROM and gentle stretchi ng into L c-spine rotation and L sidebending for 15 second hold. Sit to stand: min assist. Initiated family training with instruction to avoid pulli ng on arms with sit to stand. Standing with R trunk sidebending and lean increasing with fatigue with min assist up to mo derate assistance. Gait: Gait for 60 ft x 1 with min to moderate SCRAP SEPARATOR of 1 with R sidebending and trunk lean an d assist to increased trunk extension and upright posture. Gait for 40 ft with FWW and min a ssist up to mod assist with fatigue with R sidebend and listing. Gait training working incre asing upright postural control. Pt distractable with cueing to keep pt on task. Si t To supine with min assist of 1 for LEs. Spousal training: worked with on gait training with requiring assist of the rapist and verbal cues at this time for safety. Assessment: Impression: Pt at a high risk of falling with impaired postural control, gait unsteadiness. Risk of falling increased by impaired cognition. Recommend pt transfer to in patient rehab, however pt without insurance. Recommend continued IP Physical therapy for sp ousal training, gait training, LE strengthening and balance. Quality of participation: Making progress. Goals Due Date: 11/17/07 1. SBA supine to sit. Not assessed. Sit to supine min assist. 2. SBA sit to stand and bed to chair transfer.-Min-Mod assist. 3. CGA dynamic standing balance x 5 minutes. Making progress. 4. Gait for 200 ft with CGA with FWW. New goal. 5. Caregiver I assisting pt with functional mobility. Initiated. Recommend continued melissa paramjit. 6. I with HEP.New goal Recommendations: candidate for inpatient rehabilitation. Discharge equipment recommendations: Will reassess for FWW Plan Continued caregiver training, HEP, balance, gait training Maddy Kern, PT, NCS 11/01/2007 Electronically signed by Maddy Kern at 8 3:49 PM Cari Bernal - 11/01/2007 10:06 AM PDTCase Management Discharge Plan Needs: Nimodipine Details:Referral to [facility] Medication Assistance Program(MAP); application in process Transportation:Daughter Linda Comments: Unable to assist with obtaining pain medications , other Medications for Dc are a vailable OTC or are on Low cost lists at [facility] or [facility] and do not have a Med Assist aven ue. Spouse to access equipment for the home on his own today and [place] [address] hanna Salinas - 008 11:53 AM PDT Speech Language Evaluation See record for current Speech Language orders, activity orders and precautions. Admitting Diagnosis: subarachnoid hemorrhage Problem List: Patient Active Problem List Diagnoses Code COPD 496Z SAH (Subarachnoid Hemorrhage) 430X HTN 401.9BX GERD (Gastroesophageal Reflux Disease) 530.81K Chronic Pain 338.29A Otitis Media 382.9C No diagnosis found. Past Medical History Diagnosis Date GERD (Gastroesophageal Reflux Disease) HTN Nicotine Addiction COPD Otitis Media Chronic Pain Prior level of function: Reported by Patient Baseline diet: Regular and thins ADL: I Home Setting and Discharge Planning Information: Lives with: Spouse Current discharge plan: TBD Communication / Other: Language: [place] Hearing: WFL Vision: eyeglasses See documentation flowsheet for vitals and pain assessment/response. Speech: Understood without difficulty, but not normal - mild dysarthria 100% intelligible: Single words, 80% intelligible phrases, 80% intelligible conversatio n Oral Motor: retracts lower lips, puckers and retracts with lips, bilabial seal of lips and cheek puffing Expressive Language: Min verbalizations - 1-3 word phrase responses Namin%, Automatic sequences 100% Repetition: Single words 100%, phrases 50% Written Expression: Not formally assessed Receptive language: Basic Yes/No: 80% and Complex Yes/No: 25% Follows one step commands with No cues. Follows two step commands with No cues. Follows three step commands with No cues. Reading Comprehensive: Not formally assessed Cognitive Status: Level of alertness: verbalizes Quality of responses: Delayed and Confused Orientation: Person, Place and Situation Short Term Memory: 0/4 words without cues 0/4 with semantic cues 0/4 with choice of t hree Verbal Reasoning: No response elicited Verbal Problem Solving: No response elicited Attention: requires repetition; max cues Affect: Flat Eye Contact: Impaired Visual Perception: Not formally assessed Barriers to learning: Cognitive status Treatment this date: Cognitive-language eval; dysphagia tx Assessment: Impression: Pt with severe cognitive-language deficits. Pt exhibiting confus ion. Pt with severe Memory and Attention deficits. Pt with poor initiation. Rehab Potential: Good. Anticipated needs at discharge: see previous physical therapist recommendation Goals: Pt will be oriented 4/4 with no cues. Pt will respond to 10/10 conversational questions appropriately. Pt will accurately recall events of the day without cues. Pt will independently use compensatory strategies to facilitate recall in 6/6 trials/opport unities. Pt will maintain attention to task for 15 minutes without cues. Pt will complete 5/5 functional problem solving tasks with no cues. Pt will complete 5/5 verbal/nonverbal reasoning tasks with no cues. Pt will complete 5/5 thought organization tasks with no cues. Pt will tolerate least restrictive diet without overt signs/symptoms aspiration. Treatment Plan: Cognitive-language and dysphagia Frequency: 5 times a week Treatment plan / goals discussed with patient and family. Shanna Augustin, PhD, [facility]-AIR SHOVEL OPERATOR Pager [phone] 10/31/2007 Shanna Fernandez - Angie 10/31/2007 11:49 AM PDTSpeech Language Pathology Progress Note S: Pt agreeable. Min verbalizations. O: Pt self feeding mech soft textures, purees and thin liquids from lunch tray. Pt exhibi ting prolonged oral phase, poor initiation. No cough, throat clear or aud ph pooling with a ny textures. No oral residue or pocketing noted. Education: SEE MULTIDISCIPLINARY EDUCATIONAL RECORD FOR DETAILED PLAN; focus this session to patient includes aspiration precautions. Education Outcome: Patient able to demonstrate only with 1:1 assist . A: Impression: Pt quiana po without overt ss aspiration, conts with proonged oral phase d/t d ecreased attention to task vs oral dysphagia Quality of participation: engaged Goal progress: progressing slowly Goals see below: Pt will quiana least restrictive diet without overt signs and symptoms of a spiration. Recommendations: Cont mech soft with thin liquids as quiana, upright 90 degrees for all po, supervision with intake, cont to crush pills in puree. See cognitive-language eval for resu lts and goals. Shanna Augustin, PhD, CCC-AIR SHOVEL OPERATOR Pager [phone] Pushpa Mcnamara - 10/30 11:49 AM PDTSpoke with Hu dewey) who is retired and will be cg. His dtg Linda will transport upon dc with marilou following. He knows where to get some equipt if he needs it.El ectronically signed by Pushpa Arellano at 10/31/2007 11:56 AM Liz Lockett - 8 8:05 AM PDTOT Treatment Subjective: Patient agreeable to OT session. Objective: Arrived to find patient up in chair following PT session. See documentation flowsheet for vitals and pain assessment/response during this session. Transfer Training: See PT note for transfers. ADL's: Self feeding with close SBA due to cognitive deficits. Patient requires frequent cues for initiation, termination, and progression through tasks. Grooming with SBA for same reason. Cognition: Patient requires frequent cues to maintain attention to task and to complete ta sk thoroughly. Upon arrival, patient oriented to self, year, and "hospital", however, not t o month, date, or name of hospital. Approx 5 minutes after being told, pt able to recall "" and "October 30". Education: SEE MULTIDISCIPLINARY EDUCATIONAL RECORD FOR DETAILED PLAN; focus this session to patient includes use of call button. Education Outcome: Patient able to demonstrate imm ediately following instruction without cues. Assessment: Impression: Patient limited by poor attention, initiation, and judgement. Wou ld benefit from reducing stimulus in room during self-feeding or any instruction. Impaired problem-solving evident, though, appears to have fair short-term memory Goals see below: Goals: Due by November 09, 2007 1) Supine to EOB for activity with supervision See PT note. 2) Transfer to BSC or chair with SBA See PT note. 3) Ambulates household distances with CGA NT 4) EOB to supine following activity with supervision NT 5) Grooming/oral hygiene with supervision SBA, frequent verbal cues 6) Self-feeding independently following set-up SBA, frequent verbal cues. 7) LB dressing with SBA NT 8) UB dressing/bathing independently NT 9) Demonstrates no impulsive incidents without cues during session Not impulsive-goal met. 10) Completes simple problem-solving task with MIN vc's. MOD vc's. Progress toward goals: progressing Recommendations: Still requires SNF level placement, but will work toward home with angelica linares when caregivers available for education. Will try to coordinate with them. Plan: Continue per OT plan of care, focus next session: ADL mobility and ADLs. Time spent: 09 - [phone] LIZ RAMÍREZ OT [facility] [address] [place], [place] [id number] atsnirav, Kita - 008 7:56 AM PDT Neurosurgery Medical Laboratory Technologist Progress Note Hospital Day:13 Author; KITA BUTLER MD Attending Physician: Magnolia Diego Interval Hx: no acute events Physical Exam: Last Vitals: BP 139/74 | Pulse 87 | Temp 37.3 C (99.1 F) | Resp 18 | Ht 1.676 m (5' 6") | Wt 56.8 kg (125 lbs 3.5 oz) | SpO2 96% FIO2 (%): 40 fraction of O2 (10/24/07 5:56 AM) O2 Delivery Device: Nasal cannula (10/31/07 7:14 AM) 24 Hour Vital Min/Max: Systolic (24hrs), Av mmHg, Min:134 mmHg, Max:160 mmHg Diastolic (24hrs), Av mmHg, Min:61 mmHg, Max:77 mmHg Pulse Av.5 Min: 82 Max: 95 Temp Av C (98.6 F) Min: 36.2 C (97.2 F) Max: 37.9 C (100.2 F) Resp Av.9 Min: 14 Max: 22 SpO2 Av.3 % Min: 90 % Max: 97 % Intake/Output Summary (Last 24 hours) at 10/30 0756 Last data filed at 10/30 0500 Gross per 24 hour Intake 2105 ml Output 2225 ml Net -120 ml PE Gen: somnolent. FORBES spontaneously. Assessment and Plan: 57 y.o. Female s/p SAH - discharge home today chmi dt, Marleny - 10/31/2007 7:52 AM PDTPT Treatment Note: Activity: Up to chair TID Precautions: EVD, fall risk; wrist restraints D/T impulsivity; vasospasm watch until 10/29/07 ; HOB >30*. Crani precautions. Admitting Diagnosis: subarachnoid hemorrhage 57 y/o female with two week h/o headache accociated with L ear infection presented to an [facility] H 10/17/07 and found to have a SAH. Transferred to [facility] for care. Now s/p A-com aneurysm clip ping with EVD. Pt extubated 10/19/07. Re-intubated 10/22/07 with respiratory distress. Extubat ed 10/24/2007. Procedures: S/p clipping of A-comm aneurysm with EVD placement PMH: GERD, HTN, nicotine addiction, COPD, otitis media, chronic pain Goals Due Date: 11/17/07 1. 100% command following.-100% with constant cueing 2. Verbalize and adhere to crani precautions-Unable, instructed 3. SBA supine to sit-Mod assist 4. SBA sit to stand and bed to chair transfer.-Min-Mod assist, for Loss of balance backward . 5. CGA dynamic standing balance x 5 minutes.-Min-Mod assist, retropulsive(5 min's of standi ng and marching in place) 6. Progress gait training when off vasospasm watch/EVD out (re-assess)-Yes, next treatment. S: Complaint of back being sore but did not rate pain, no ZULUAGA. O: Pt supine and agreeable to treatment and sitting up in chair. Pt found to have had bm in bed and appeared to be oblivious to the fact(had smeared feces all over gown, was on hand s and imbedded in fingernails). Pt's gown changed and assisted with hygiene at the edge of bed(sit to stand X 4-5) Per gait included: Marching in place and steps to the chair. Pt le ft in care of nurse, thierry serrano. A: Pt with increased ability to amb and ready for gait training. Noted to have poor initi ation and follow through with task completion(requiring constant cueing). See eval for DC r ec's will defer as pt to be re-eval'd next treatment. P: Re-eval for gait training goals? And DC recommendations. Marleny Chu, FRONT CLERK [id number] Seen from [phone] Arlette Simental - 2007 5:21 PM PDTNSICU CARE MANAGEMENT DISCHARGE PLANNING NOTE Course: Improving cognitive functioning. The patient still tends to readily fall asleep. Wo uld not attend to our conversation, and tended to perseverate on trying to spoon a small bit of jello from a cup. Mental status may still clear, but needs to be monitored. Continuing t o work with OT who recommends ideally SNF placement. Case reviewed with STATEMENT DISTRIBUTION CLERK. Insurance/Funding: No funding at this time. FMS involved. Patient will not qualify for [facility] caid. Discharge Counseling: TC to at home: Non-urgent voicemail left to return my call re garding discussing future plans for when his goes home. Also, I notified him by message that his is ready to transfer to [facility]. A similar message was also left on his cell phon e. Assessment: Discharge to home with 24 hour assistance. Pt does not have insurance for SNF p lacement. Plan. 1. To transfer to [facility] when a bed is available. 2.Caregiver teaching with PT, OT and raine seth. 3. Care Management will follow. Arlette Lee RN, GNP pgr [id number]. andida Puckett - 10/30/2007 12:37 PM PDT NEUROSCIENCE ICU ATTENDING INPATIENT PROGRESS NOTE Critical Care attending physician: CANDIDA PUCKETT MD Referring Attending Physician: Magnolia Diego I saw and evaluated the patient at the bedside together with Dr Landeros and the ICU team. I rev iewed his findings, all data and the the recent imaging available. I agree with the assessm ent and plan as described in the residents note. I discussed the care plan with the primar y team. Reason for ICU admission: POD #11, PBD #12 s/p SAH ; s/p crani for clipping of a-comm aneu rysm Last 24 hours: no acute event ; overall organizational deficiencies ; oriented x 3, intact ; no focal deficit ; VS stable ; still requires PT/OT for disconditioning ; prev 24hr: I/O 2.2/2.4 ; Na+ decreased from 141 to 135 over prior 12 hrs Patient Active Problem List Diagnoses Code COPD 496Z SAH (Subarachnoid Hemorrhage) 430X HTN 401.9BX GERD (Gastroesophageal Reflux Disease) 530.81K Chronic Pain 338.29A Otitis Media 382.9C Current ICU problem list: Neuro: Cont checks q1hr ; fluronef is off ; 3% off ; start po NaCl 2g TID Hemodyn: residential monitor ; Pulmo: Keep SpO2 > 95% GI: ADAT, PPI I/O: goal: Euvolemia for next 24hr, Na-goal: >135 ; ID: follow leucocytosis, temperatures Other: Needs aggressive PT/OT CCT: 37 minutes Candida Puckett Isis Wolf CCC-AIR SHOVEL OPERATOR - 10/30/2007 11:54 AM PDTSpeech Language Pathology Progress Note S: "water" re: How do you take your pills at home? O: Pt seen re: po stim/quiana, pt sitting in chiar at bedside, perseverating on hair brush, p t accepted crackers x4 bites, thins via straw and cup x3oz, attempted to swallow pills from RN but pt holding pills in oral cavity. Demo no cough, throat clear or aud ph pooling, prolo nged oral phase with solids but no oral residue. Pt required frequent repetition of quesiton s during interaction d/t perseveration on hairbrush Education: SEE MULTIDISCIPLINARY EDUCATIONAL RECORD FOR DETAILED PLAN; focus this session to patient includes aspiration precautions. Education Outcome: Patient able to demonstrate only with 1:1 assist . A: Impression: Pt quiana po without overt ss aspiration, conts with proonged oral phase d/t d ecreased attention to task vs oral dysphagia Quality of participation: engaged Goal progress: progressing slowly Goals see below: Pt will quiana least restrictive diet without overt signs and symptoms of a spiration. Recommendations: Cont mech soft with thin liquids as quiana, upright 90 degrees for all po, supervision with intake, cont to crush pills in puree, cog lanugage eval when appropriate Time In : 11:35 Time Out : 11:55 P: Continue per AIR SHOVEL OPERATOR POC Isis Wolf M.S., CCC-AIR SHOVEL OPERATOR #[id number] ISIS WOLF 09/04/2007 hea Ivory - 11:42 AM PDTOT Treatment: ([id number]) S: Pt with no c/o pain. A + O x self, "hospital", month and year; not date or name of hos pital. O: Pt seen for bed mobility, seated ADL, functional transfers for ADL, safety awareness an d cognition related to ADL. Pt requires frequent verbal and occasional tactile cues to init iate and terminate tasks. Once ADL or mobility task is initated, pt able to complete with f air quality, but pt then requires cues to terminate activity. Left pt up in chair with call light; RN aware. Goals: Due by November 09, 2007 1) Supine to EOB for activity with supervision Min assist 2) Transfer to BSC or chair with SBA Close CGA 3) Ambulates household distances with CGA NT 4) EOB to supine following activity with supervision NT 5) Grooming/oral hygiene with supervision SBA, frequent verbal cues 6) Self-feeding independently following set-up SBA 7) LB dressing with SBA NT 8) UB dressing/bathing independently UB dressing min assist 9) Maintains alertness 100% during session 100% - GOAL MET 10) Demonstrates no impulsive incidents without cues during session Not impulsive 11) Completes simple problem-solving task with MIN vc's. NT A: Pt with increased independence with ADL and functional mobility for ADL, but still limi eli by cognition, requiring constant cues for initiating and terminating tasks. Will benefi t from cont OT to maximize functional indep and safety. P: Recommend SNF level rehab at this time. [place] Ivory, [place]/ [place] [id number] un, [place] - 10/30/2007 5:19 AM PDT NEUROSURGERY PROGRESS NOTE Author: GALILEO LANDEROS MD Attending Physician: Magnolia Diego HPI/Interval Update: No acute events overnight. Physical Exam: BP 144/80 | Pulse 90 | Temp 38 C (100.4 F) | Resp 21 | Ht 1.676 m (5' 6") | Wt 56.8 kg (125 lbs 3.5 oz) | SpO2 95% Systolic (24hrs), Av mmHg, Min:94 mmHg, Max:152 mmHg Diastolic (24hrs), Av mmHg, Min:29 mmHg, Max:99 mmHg Pulse Av.4 Min: 71 Max: 99 Temp Av C (98.6 F) Min: 36.6 C (97.9 F) Max: 38 C (100.4 F) Resp Av.7 Min: 17 Max: 29 SpO2 Av.6 % Min: 90 % Max: 97 % Intake/Output Summary (Last 24 hours) at 10/29 518 Last data filed at 10/29 040 Gross per 24 hour Intake 2075 ml Output 1970 ml Net 105 ml Lab Results Basename Value Date/Time NA 135 10/30/07219 K 3.6 10/30/07219 CR 0.59* 10/30/07219 HCT 31.4* 10/30/07219 WBC 15.4* 10/30/07219 PLT 345 10/30/07219 INR Not Recd 10/18/07 0501 ] CULTURE RESULT (no units) Date Value 10/28/07 CSF Culture Source...............: Cerebrospinal Fluid RLB Gram Stain ...........: Gram smear performed at [facility]. Culture: Preliminary Report: No growth after 1 day. Culture examined daily. Report will be updated if growth occurs. Further report to follow. Patient is A+Ox3, PERRLA, EOMI, Face symmetric, tongue ML Her motor exam is 5/5 allover, normal bulk and tone Sensations are ILT Reflexes are 2/4 allover. Assessment and Plan: 57y.o female s/p SAH, PBD 12, s/p crani for clipping of a-comm aneurysm, POD 11. Neuro intact. Will likely to transfer to [facility] today. PT/OT. José Miguel Kim - 10/29/19 08 11:05 AM PDT NEURO-ICU ATTENDING AUTHOR: JOSÉ MIGUEL DAS M.D. I have examined and reviewed this patient with the house staff and agree with Dr. Demarco's documentation. Mrs. 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 EVD clamped since yesterday . COPD requiring close cardiopulmonary monitoring. She remains at a significant risk for va sospasm and ischemic strokes. ICU day # 11 POD# 11 PBD # 11 BP 122/74 | Pulse 77 | Temp 37.8 C (100 F) | Resp 17 | Ht 1.676 m (5' 6") | Wt 56.8 kg (125 lbs 3.5 oz) | SpO2 92% Systolic (24hrs), Av mmHg, Min:107 mmHg, Max:160 mmHg Diastolic (24hrs), Av mmHg, Min:54 mmHg, Max:94 mmHg Pulse Av.3 Min: 75 Max: 99 Temp Av C (98.6 F) Min: 36.5 C (97.7 F) Max: 37.8 C (100 F) Resp Av.0 Min: 17 Max: 28 SpO2 Av.8 % Min: 90 % Max: 98 % Patient Vitals in the past 8 hrs: BP Temp Temp src Pulse Resp SpO2 Height Wt - Scale 10/29/07 0600 122/74 mmHg - - 77 17 92 % - - 10/29/07 0500 149/58 mmHg - - 86 21 90 % - - 10/29/07 0400 116/57 mmHg - - 75 21 93 % - - 10/29/07 0300 124/59 mmHg - - 76 20 93 % - - 10/29/07 0200 117/63 mmHg - - 75 20 91 % - - 10/29/07 0100 132/59 mmHg - - 78 17 92 % - - 10/29/07 0000 142/57 mmHg - - 88 18 92 % - - 10/28/07 2300 131/57 mmHg - - 93 18 94 % - - Intake/Output Summary (Last 24 hours) at 10/29 655 Last data filed at 10/28 599 Gross per 24 hour Intake 3472 ml Output 3645 ml Net -173 ml Lab Results Lab Test Name Results Date/Time WBC 16.4 10/29/07 HB 10.3 10/29/07 HCT 30.1 10/29/07 PLT 318 10/29/07 MCV 95.2 10/29/07 RDW 13.7 10/29/07 Lab Results Lab Test Name Results Date/Time NA 139 10/29/07 K 3.2 10/29/07 CL 106 10/29/07 BICARB 26 10/29/07 BUN 7 10/29/07 CR 0.62 10/29/07 GLU 116 10/29/07 CA 8.7 10/29/07 INR (INR) Date Value 10/18/07 Not Recd Plan: 1) Continue neurochecks; Nimodipine; Follow TCDs for vasospasm. Clamp EVD and monitor ICP. 2) Continue cardiopulmonary monitoring. Minimize diuresis. Bronchodilators. Pulmonary toile t. 3) DVT/GI prophylaxis. 4) Glycemic control and nutritional support. 5) PT/OT. I have spent 35 min of critical care time at the bedside. José Miguel Das M.D. Silvia Vergara - 10/29/19 08 10:01 AM LUZSpee Language Pathology Progress Note S: "I've done this a lot" pt re: preparing meal. Pt required min cueing to maintain alertn ess at beginning of tx. O: Pt seen for dysphagia tx. Pt with EVD and receiving 2L O2 via nasal cannula with SpO2 9 3-95%. Pt sitting in chair at bedside with breakfast tray. Pt self-administered thin liquids via cup and straw sip x 3 oz, and mech soft x 6 bites. Pt with upper dental plate in place and natural lower dentition in fair condition. Pt demo increased mastication with mech soft (~1 min). Pt demo mildly delayed initiation of the swallow, reduced laryngeal elevation, + c ough 1/6 mech soft; otherwise, - cough, - throat clear, - audible pharyngeal pooling, + min oral residue cleared with cues for sips of thin liquids, - c/o difficulties. Pt left in sonia r at bedside with breakfast tray, RN aware. Education: SEE MULTIDISCIPLINARY EDUCATIONAL RECORD FOR DETAILED PLAN; focus this session to patient includes aspiration precautions. Education Outcome: Patient not able to demonst rate . A: Impression: Pt quiana mech soft diet with thin liquids without overt ss of aspiration. Pt continues with increased mastication of mech soft. Quality of participation: Engaged with some distractability and min cues for maintaining alertness. Goal progress: progressing Goals see below: Pt quiana least restrictive diet without overt ss of aspiration. Recommendations: Continue mech soft diet with thin liquids while pt awake/alert, position ed fully upright, and with 1:1 supervision. P: Continue per AIR SHOVEL OPERATOR POC Time In:815 Time Out:845 Siliva Salazar M.S. CF-AIR SHOVEL OPERATOR #[id number] usolomonGertrude rodgers - 08/2007 7:04 AM PDT ICU DAILY PROGRESS NOTE ID: 57 y.o. y/o female admitted 10/18/2007 4:14 AM. HH4, F3, PBD 11, POD 11 Patient Active Hospital Problem List: COPD (10/24/2007) SAH (Subarachnoid Hemorrhage) (10/24/2007) HTN (10/24/2007) GERD (Gastroesophageal Reflux Disease) (10/24/2007) Chronic Pain (10/24/2007) Otitis Media (10/24/2007) Keflex preadmit Past Medical History Diagnosis Date GERD (Gastroesophageal Reflux Disease) HTN Nicotine Addiction COPD Otitis Media recent abx preadmit Chronic Pain E: 10ml CSF taken off yesterday during rounds More awake D/C scheduled seroquel Neurological: Exam: alert, oriented, CN 2-12 intact, 5/5 strength, sens intact ICP: 5 - 15; EVD output: CLAMPED Imaging (TCD, CT, MRI): CT showing minimal hydroceph Meds: florinef, statin, nimodipine Cardiovascular: Systolic (24hrs), Av mmHg, Min:107 mmHg, Max:160 mmHg Diastolic (24hrs), Av mmHg, Min:54 mmHg, Max:94 mmHg Pulse Av.4 Min: 75 Max: 99 Respiratory: RR: 17-22; 02 sat: >94 on 2L NC Meds: combivent, alb Exam: bibasilar crackles FEN: Intake/Output Summary (Last 24 hours) at 10/29 703 Last data filed at 10/28 06 Gross per 24 hour Intake 3419 ml Output 3170 ml Net 249 ml IV fluids: 50; goal/hr: 85/hr Cumulative (hospital stay) I/O: +2.6L; Admit wt: Wt - Scale: 56.8 kg (125 lbs 3.5 oz) (10/18/07 5:00 AM); Chemistries Last 96 Hours (or 3 results): Recent Labs Basename 10/29/07205810/28/07 1700 10/28/07 0800 10/28/07205810/27/07 0120 NA 139 Combined.|139 Combined.|141 141 -- K 3.2* 3.2* 3.4 3.6 -- CL 106 -- -- 109* 116* BICARB 26 -- -- 27 25 BUN 7 -- -- 5* 12 CR 0.62 -- -- 0.66 0.79 CA 8.7 -- -- 8.3* 8.3* MG 1.9 -- -- 1.8 1.9 PO4 4.1 -- -- 3.4 3.6 AST -- -- -- -- -- ALT -- -- -- -- -- TBILI -- -- -- -- -- AP -- -- -- -- -- ALB 2.8* -- -- 2.9* 2.6* TP -- -- -- -- -- .chem GI: Diet: reg Heme/ID: Tm: Temp (24hrs), Av C (98.6 F), Min:36.5 C (97.7 F), Max:37.8 C (10 0 F) CBC with diff last 96 hours (or 3 results) Recent Labs Basename 10/29/07205810/28/07205810/27/07 0120 WBC 16.4* 12.8* 11.2* HB 10.3* 9.9* 9.4* HCT 30.1* 29.1* 27.7* PLT 318 273 220 NEUTROPERC -- -- -- BANDPCT -- -- -- LYMPHPERC -- -- -- MONOPERC -- -- -- BASOPERC -- -- -- EOSPERC -- -- -- CULTURE RESULT (no units) Date Value 10/27/07 Blood Culture Source..................: Left Subclavian Central venous ca theter Result................... Preliminary: No growth at 1 day. 10/27/07 Urine Culture Source...............: Benavides Cath Urine Culture: Preliminary Report: No growth after 1 day. Culture examined daily. Report will be updated if growth occurs. Further report to follow. 10/27/07 Respiratory Culture Source...............: Sputum Sputum Culture: Gram stain shows the presence of significant oropharyngeal contamination. Final Report 10/27/07 Blood Culture Source..................: Left Subclavian Central venous ca theter Result................... Preliminary: No growth at 1 day. 10/27/07 CSF Culture Source...............: Cerebrospinal Fluid RLB Gram Stain ...........: Gram smear performed at [facility]. Culture: Preliminary Report: No growth after 1 day. Culture examined daily. Report will be updated if growth occurs. Further report to follow. Endocrine: Insulin: not indicated CBG Result ($) Av Min: 121 Max: 121 Current Medications: Current Inpatient Medications Medication Dose Route Frequency acetaminophen (aka TYLENOL) tablet 325-650 mg 325-650 mg Oral EVERY 4 HOURS NEEDED albuterol (aka PROVENTIL, VENTOLIN) 90 mcg/Actuation inhaler 4 Puff 4 Puff Inhalation E VERY 4 HOURS NEEDED albuterol-ipratropium (aka COMBIVENT) inhaler 4 Puff 4 Puff Inhalation FOUR TIMES DAILY bisacodyl (aka DULCOLAX) suppository 10 mg 10 mg Rectal TWICE DAILY NEEDED docusate sodium liquid 50 mg 50 mg Feeding tube TWICE DAILY fentanyl (aka SUBLIMAZE) injection 25-75 mcg 25-75 mcg Intravenous EVERY 2 HOURS NEE DED fludrocortisone (aka FLORINEF) tablet 0.1 mg 0.1 mg Oral DAILY haloperidol lactate (aka HALDOL) injection 2-5 mg 2-5 mg Intravenous EVERY 4 HOURS N EEDED labetalol (aka NORMODYNE,TRANDATE) injection 10-40 mg 10-40 mg Intravenous EVERY 10 MIN UTES NEEDED lansoprazole 3 mg/mL suspension 30 mg 30 mg Feeding tube DAILY magnesium hydroxide (aka MILK OF MAGNESIA) suspension 30 mL 30 mL Oral EVERY 4 HOURS NEEDED metoclopramide (aka REGLAN) injection 5-10 mg 5-10 mg Intravenous EVERY 4 HOURS NEED ED miconazole (aka SECURA) 2 % extra thick cream Topical TWICE DAILY NaCl 0.9%-KCl 20 mEq IV infusion Intravenous CONTINUOUS nimodipine (aka NIMOTOP) capsule 60 mg 60 mg Oral EVERY 4 HOURS ondansetron (aka ZOFRAN) injection 4 mg 4 mg Intravenous EVERY 12 HOURS NEEDED oxycodone (aka ROXICODONE) oral solution 5-15 mg 5-15 mg Oral EVERY 3 HOURS NEEDED oxycodone immediate release (aka ROXICODONE) tablet 5-15 mg 5-15 mg Oral EVERY 3 HOURS NEEDED potassium chloride (aka KAOCHLOR) liquid 10-40 mEq 10-40 mEq Oral NEEDED potassium chloride IV 20 mEq 20 mEq Intravenous NEEDED pravastatin (aka PRAVACHOL) tablet 40 mg 40 mg Oral AT BEDTIME promethazine (aka PHENERGAN) injection 6.25-12.5 mg 6.25-12.5 mg Intravenous EVERY 4 HO URS NEEDED quetiapine (aka SEROQUEL) tablet 25 mg 25 mg Oral EVERY 12 HOURS NEEDED racepinephrine (aka VAPONEFRIN) 2.25 % nebulizer solution 0.5 mL 0.5 mL Inhalation EVER Y 4 HOURS NEEDED sennosides (aka SENOKOT) liquid 8.8 mg 5 mL Feeding tube EVERY 12 HOURS NEEDED sorbitol liquid 30-60 mL 30-60 mL Oral EVERY 2 HOURS NEEDED PLAN: Neurological: Vasospasm watch, TCD's pending for today, exam intact EVD clamped and doing well; CT relatively normal; plan for EVD out today Continue nimodipine, D/C florinef Cardiovascular: SBP goal <200 Respiratory: Decreased O2 requirement--2L NC and sating well Pulm toilet OOB to chair will help pulm status FEN: 24-hour I/O goal: even Bolus prn to maintain goal Continue florinef Will wait until through vasospasm window before allow to diurese more aggressively GI: Feeding: regular, Ulcer Prophylaxis: Ranitidine ID/HO: Afebrile, but bump in WBC. Arellano-cx neg to date. No obvious source. Questionable asp on CXR D/C CVC Thromboprophylaxis: SCDs Endocrine: no active issues, Glycemic control: not indicated Dispo: likely transfer to floor Tuesday after EVD out for 24 hrs GERTRUDE GRANADOS MD Long Lo Md - 08/2007 6:56 AM PDT Author: LONG DEMARCO Attending Physician: Magnolia Diego Objective: 57 yof, s/p HH4 F4 SAJH, clipped aneurysm Subjective: EVD clamped, done well BP 122/74 | Pulse 77 | Temp 37.8 C (100 F) | Resp 17 | Ht 1.676 m (5' 6") | Wt 56.8 kg (125 lbs 3.5 oz) | SpO2 92% Systolic (24hrs), Av mmHg, Min:107 mmHg, Max:160 mmHg Diastolic (24hrs), Av mmHg, Min:54 mmHg, Max:94 mmHg Pulse Av.3 Min: 75 Max: 99 Temp Av C (98.6 F) Min: 36.5 C (97.7 F) Max: 37.8 C (100 F) Resp Av.0 Min: 17 Max: 28 SpO2 Av.8 % Min: 90 % Max: 98 % Patient Vitals in the past 8 hrs: BP Temp Temp src Pulse Resp SpO2 Height Wt - Scale 10/29/07 0600 122/74 mmHg - - 77 17 92 % - - 10/29/07 0500 149/58 mmHg - - 86 21 90 % - - 10/29/07 0400 116/57 mmHg - - 75 21 93 % - - 10/29/07 0300 124/59 mmHg - - 76 20 93 % - - 10/29/07 0200 117/63 mmHg - - 75 20 91 % - - 10/29/07 0100 132/59 mmHg - - 78 17 92 % - - 10/29/07 0000 142/57 mmHg - - 88 18 92 % - - 10/28/07 2300 131/57 mmHg - - 93 18 94 % - - Intake/Output Summary (Last 24 hours) at 10/28 06 Last data filed at 10/28 0600 Gross per 24 hour Intake 3472 ml Output 3645 ml Net -173 ml Ventilator Settings Lab Results Lab Test Name Results Date/Time WBC 16.4 10/29/07 HB 10.3 10/29/07 HCT 30.1 10/29/07 PLT 318 10/29/07 MCV 95.2 10/29/07 RDW 13.7 10/29/07 Lab Results Lab Test Name Results Date/Time NA 139 10/29/07 K 3.2 10/29/07 CL 106 10/29/07 BICARB 26 10/29/07 BUN 7 10/29/07 CR 0.62 10/29/07 GLU 116 10/29/07 CA 8.7 10/29/07 INR (INR) Date Value 10/18/07 Not Recd Current Inpatient Medications Medication Dose Route Frequency acetaminophen (aka TYLENOL) tablet 325-650 mg 325-650 mg Oral EVERY 4 HOURS NEEDED albuterol (aka PROVENTIL, VENTOLIN) 90 mcg/Actuation inhaler 4 Puff 4 Puff Inhalation E VERY 4 HOURS NEEDED albuterol-ipratropium (aka COMBIVENT) inhaler 4 Puff 4 Puff Inhalation FOUR TIMES DAILY bisacodyl (aka DULCOLAX) suppository 10 mg 10 mg Rectal TWICE DAILY NEEDED docusate sodium liquid 50 mg 50 mg Feeding tube TWICE DAILY fentanyl (aka SUBLIMAZE) injection 25-75 mcg 25-75 mcg Intravenous EVERY 2 HOURS NEE DED fludrocortisone (aka FLORINEF) tablet 0.1 mg 0.1 mg Oral DAILY haloperidol lactate (aka HALDOL) injection 2-5 mg 2-5 mg Intravenous EVERY 4 HOURS N EEDED labetalol (aka NORMODYNE,TRANDATE) injection 10-40 mg 10-40 mg Intravenous EVERY 10 MIN UTES NEEDED lansoprazole 3 mg/mL suspension 30 mg 30 mg Feeding tube DAILY magnesium hydroxide (aka MILK OF MAGNESIA) suspension 30 mL 30 mL Oral EVERY 4 HOURS NEEDED metoclopramide (aka REGLAN) injection 5-10 mg 5-10 mg Intravenous EVERY 4 HOURS NEED ED miconazole (aka SECURA) 2 % extra thick cream Topical TWICE DAILY NaCl 0.9%-KCl 20 mEq IV infusion Intravenous CONTINUOUS nimodipine (aka NIMOTOP) capsule 60 mg 60 mg Oral EVERY 4 HOURS ondansetron (aka ZOFRAN) injection 4 mg 4 mg Intravenous EVERY 12 HOURS NEEDED oxycodone (aka ROXICODONE) oral solution 5-15 mg 5-15 mg Oral EVERY 3 HOURS NEEDED oxycodone immediate release (aka ROXICODONE) tablet 5-15 mg 5-15 mg Oral EVERY 3 HOURS NEEDED potassium chloride (aka KAOCHLOR) liquid 10-40 mEq 10-40 mEq Oral NEEDED potassium chloride IV 20 mEq 20 mEq Intravenous NEEDED pravastatin (aka PRAVACHOL) tablet 40 mg 40 mg Oral AT BEDTIME promethazine (aka PHENERGAN) injection 6.25-12.5 mg 6.25-12.5 mg Intravenous EVERY 4 HO URS NEEDED quetiapine (aka SEROQUEL) tablet 25 mg 25 mg Oral EVERY 12 HOURS NEEDED racepinephrine (aka VAPONEFRIN) 2.25 % nebulizer solution 0.5 mL 0.5 mL Inhalation EVER Y 4 HOURS NEEDED sennosides (aka SENOKOT) liquid 8.8 mg 5 mL Feeding tube EVERY 12 HOURS NEEDED sorbitol liquid 30-60 mL 30-60 mL Oral EVERY 2 HOURS NEEDED Awkae, oriented Pleasant PERRLA EOMI VFF Face symmetric Tongue ML MAEW Incision c-d-i A/P: Stable HH4 F4 SAH, toelrating clamping of EVD. Clinically stable, will DC EVD. TCD's are hi gh on the R side, but relatively decreasing. Na 139 José Miguel Kim - 07/2007 10:18 AM PDT NEURO-ICU ATTENDING AUTHOR: JOSÉ MIGUEL DAS M.D. I have examined and reviewed this patient with the house staff and PA, and agree with Dr. Tom gallegos's documentation. Mrs. 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 She remains at a significant risk for vasospasm and ischemic strokes. S he is arousable and able to follow simple commands. Agitated overnight requiring precedex. I CU day # 10 POD# 10 PBD # 10 Exam: alert, more awake, oriented x 2, CN2-12 intact, 5/5 in all 4, sens intact ICP: 5 - 15; EVD output: 12 (CLAMPED) Meds: stain, nimodipine, florinef Systolic (24hrs), Av mmHg, Min:103 mmHg, Max:167 mmHg Diastolic (24hrs), Av mmHg, Min:48 mmHg, Max:88 mmHg Pulse Av.0 Min: 70 Max: 95 RR: 22-32; 02 sat: >94 on 4L NC Exam: bibasilar crackles, otherwise CTA Meds: alb, combivent Intake/Output Summary (Last 24 hours) at 10/27 744 Last data filed at 10/27 07 Gross per 24 hour Intake 3807 ml Output 5542 ml Net -1735 ml IV fluids: 50/hr goal/hr: 85 Cumulative (hospital stay) I/O: +2.3 Recent Labs Basename 10/28/07 0001 10/27/07 1532 10/27/07 1531 10/27/07 0830 10/27/07 0120 10/26/07 0120 NA 141 -- 143 144* 146* -- K 3.6 Combined. 3.4 Combined.|3.4 -- -- CL 109* -- -- -- 116* 113* BICARB 27 -- -- -- 25 25 BUN 5* -- -- -- 12 8 CR 0.66 -- -- -- 0.79 0.69 CA 8.3* -- -- -- 8.3* 8.1* MG 1.8 -- -- -- 1.9 2.0 PO4 3.4 -- -- -- 3.6 3.3 AST -- -- -- -- -- -- ALT -- -- -- -- -- -- TBILI -- -- -- -- -- -- AP -- -- -- -- -- -- ALB 2.9* -- -- -- 2.6* 2.9* TP -- -- -- -- -- -- Recent Labs Basename 10/28/07205810/27/0711910/26/07119 AST -- -- -- ALT -- -- -- AP -- -- -- TBILI -- -- -- DIRBILI -- -- -- ALB 2.9* 2.6* 2.9* CBC with diff last 96 hours (or 3 results) Recent Labs Basename 10/28/07205810/27/0711910/26/07119 WBC 12.8* 11.2* 13.3* HB 9.9* 9.4* 9.7* HCT 29.1* 27.7* 28.2* PLT 273 220 203 NEUTROPERC -- -- -- BANDPCT -- -- -- LYMPHPERC -- -- -- MONOPERC -- -- -- BASOPERC -- -- -- EOSPERC -- -- -- Plan: 1) Continue neurochecks; Nimodipine; Follow TCDs for vasospasm. Clamp EVD and monitor ICP. 2) Continue cardiopulmonary monitoring. Minimize diuresis. Bronchodilators. Pulmonary toile t. 3) DVT/GI prophylaxis. 4) Glycemic control and nutritional support. 5) PT/OT. I have spent 40 min of critical care time at the bedside. José Miguel Das M.D. uchristina, Gertrude - 10/28/2007 7:45 AM PDT ICU DAILY PROGRESS NOTE ID: 57 y.o. y/o female admitted 10/18/2007 4:14 AM. On admit HH4, F3, PBD 10, POD 10 Patient Active Hospital Problem List: COPD (10/24/2007) SAH (Subarachnoid Hemorrhage) (10/24/2007) HTN (10/24/2007) GERD (Gastroesophageal Reflux Disease) (10/24/2007) Chronic Pain (10/24/2007) Otitis Media (10/24/2007) Keflex preadmit Past Medical History Diagnosis Date GERD (Gastroesophageal Reflux Disease) HTN Nicotine Addiction COPD Otitis Media recent abx preadmit Chronic Pain E: Febrile overnight, arellano-cultured Dobhoff pulled out & left out Neurological: Exam: alert, more awake, oriented x 2, CN2-12 intact, 5/5 in all 4, sens intact ICP: 5 - 15; EVD output: 12 (CLAMPED) Meds: stain, nimodipine, florinef Images: CT Head--no obvious hydro, official read Pending Cardiovascular: Systolic (24hrs), Av mmHg, Min:103 mmHg, Max:167 mmHg Diastolic (24hrs), Av mmHg, Min:48 mmHg, Max:88 mmHg Pulse Av.0 Min: 70 Max: 95 Respiratory: RR: 22-32; 02 sat: >94 on 4L NC Exam: bibasilar crackles, otherwise CTA Meds: alb, combivent FEN: Intake/Output Summary (Last 24 hours) at 10/27 744 Last data filed at 10/27 699 Gross per 24 hour Intake 3807 ml Output 5542 ml Net -1735 ml IV fluids: 50/hr goal/hr: 85 Cumulative (hospital stay) I/O: +2.3 Admit wt: Wt - Scale: 56.8 kg (125 lbs 3.5 oz) (10/18/07 5:00 AM); Chemistries Last 96 Hours (or 3 results): Recent Labs Basename 10/28/07 0001 10/27/07 1532 10/27/07 1531 10/27/07 0830 10/27/07 0120 10/26/07 0120 NA 141 -- 143 144* 146* -- K 3.6 Combined. 3.4 Combined.|3.4 -- -- CL 109* -- -- -- 116* 113* BICARB 27 -- -- -- 25 25 BUN 5* -- -- -- 12 8 CR 0.66 -- -- -- 0.79 0.69 CA 8.3* -- -- -- 8.3* 8.1* MG 1.8 -- -- -- 1.9 2.0 PO4 3.4 -- -- -- 3.6 3.3 AST -- -- -- -- -- -- ALT -- -- -- -- -- -- TBILI -- -- -- -- -- -- AP -- -- -- -- -- -- ALB 2.9* -- -- -- 2.6* 2.9* TP -- -- -- -- -- -- .chem GI: Diet: TF, reg diet ordered TF rate: 35 Meds: Recent Labs Basename 10/28/07205810/27/0711910/26/07119 AST -- -- -- ALT -- -- -- AP -- -- -- TBILI -- -- -- DIRBILI -- -- -- ALB 2.9* 2.6* 2.9* Heme/ID: Tm: Temp (24hrs), Av.6 C (99.7 F), Min:36.6 C (97.9 F), Max:38.7 C ( 101.7 F) Tc: Last 1 Encounter Temp Readings: Date Temp Temp Src 10/18/2007 37.8 C (100 F) CBC with diff last 96 hours (or 3 results) Recent Labs Basename 10/28/07205810/27/0711910/26/07119 WBC 12.8* 11.2* 13.3* HB 9.9* 9.4* 9.7* HCT 29.1* 27.7* 28.2* PLT 273 220 203 NEUTROPERC -- -- -- BANDPCT -- -- -- LYMPHPERC -- -- -- MONOPERC -- -- -- BASOPERC -- -- -- EOSPERC -- -- -- CULTURE RESULT (no units) Date Value 10/27/07 Respiratory Culture Source...............: Sputum Sputum Culture: Gram stain shows the presence of significant oropharyngeal contamination. Final Report 10/24/07 CSF Culture Source...............: Cerebrospinal Fluid RLB Gram Stain ...........: Gram smear performed at [facility]. Culture: Final Report: No growth after 3 days. Final Report 10/22/07 CSF Culture Source...............: Cerebrospinal Fluid RLB Gram Stai n...........: Gram smear performed at [facility]. Culture: Final Report: No growth afte r 3 days. Final Report 10/22/07 Blood Culture Source..................: Central Line Blood Result. .................. Final: No growth at 5 days. 10/19/07 CSF Culture Source...............: Ventricular Fluid Cerebrospinal Flu id RLB Gram Stain...........: Gram smear performed at [facility]. Culture: Final Repo rt: No growth after 3 days. Final Report Endocrine: FSBS range: 110-136 Current Medications: Current Inpatient Medications Medication Dose Route Frequency acetaminophen (aka TYLENOL) tablet 325-650 mg 325-650 mg Oral EVERY 4 HOURS NEEDED albuterol (aka PROVENTIL, VENTOLIN) 90 mcg/Actuation inhaler 4 Puff 4 Puff Inhalation E VERY 4 HOURS NEEDED albuterol-ipratropium (aka COMBIVENT) inhaler 4 Puff 4 Puff Inhalation FOUR TIMES DAILY bisacodyl (aka DULCOLAX) suppository 10 mg 10 mg Rectal TWICE DAILY NEEDED docusate sodium liquid 50 mg 50 mg Feeding tube TWICE DAILY fentanyl (aka SUBLIMAZE) injection 25-75 mcg 25-75 mcg Intravenous EVERY 2 HOURS NEE DED fludrocortisone (aka FLORINEF) tablet 0.1 mg 0.1 mg Oral DAILY haloperidol lactate (aka HALDOL) injection 2-5 mg 2-5 mg Intravenous EVERY 4 HOURS N EEDED labetalol (aka NORMODYNE,TRANDATE) injection 10-40 mg 10-40 mg Intravenous EVERY 10 MIN UTES NEEDED lansoprazole 3 mg/mL suspension 30 mg 30 mg Feeding tube DAILY magnesium hydroxide (aka MILK OF MAGNESIA) suspension 30 mL 30 mL Oral EVERY 4 HOURS NEEDED metoclopramide (aka REGLAN) injection 5-10 mg 5-10 mg Intravenous EVERY 4 HOURS NEED ED miconazole (aka SECURA) 2 % extra thick cream Topical TWICE DAILY NaCl 0.9%-KCl 20 mEq IV infusion Intravenous CONTINUOUS nimodipine (aka NIMOTOP) capsule 60 mg 60 mg Oral EVERY 4 HOURS ondansetron (aka ZOFRAN) injection 4 mg 4 mg Intravenous EVERY 12 HOURS NEEDED oxycodone (aka ROXICODONE) oral solution 5-15 mg 5-15 mg Oral EVERY 3 HOURS NEEDED oxycodone immediate release (aka ROXICODONE) tablet 5-15 mg 5-15 mg Oral EVERY 3 HOURS NEEDED potassium chloride (aka KAOCHLOR) liquid 10-40 mEq 10-40 mEq Oral NEEDED potassium chloride IV 20 mEq 20 mEq Intravenous NEEDED pravastatin (aka PRAVACHOL) tablet 40 mg 40 mg Oral AT BEDTIME promethazine (aka PHENERGAN) injection 6.25-12.5 mg 6.25-12.5 mg Intravenous EVERY 4 HO URS NEEDED quetiapine (aka SEROQUEL) tablet 25 mg 25 mg Oral TWICE DAILY racepinephrine (aka VAPONEFRIN) 2.25 % nebulizer solution 0.5 mL 0.5 mL Inhalation EVER Y 4 HOURS NEEDED sennosides (aka SENOKOT) liquid 8.8 mg 5 mL Feeding tube EVERY 12 HOURS NEEDED sorbitol liquid 30-60 mL 30-60 mL Oral EVERY 2 HOURS NEEDED PLAN: Neurological: Vasospasm watch, TCD's pending for today, exam intact EVD clamped and doing well; CT with minimally enlarged ventricles On rounds, more obtunded with ICP 9 and EVD clamped. 10 ml CSF drained at bedside-->follow exam closely Cardiovascular: SBP goal <200 Respiratory: Continues to sat well on 4L NC Pulm toilet OOB to chair will help pulm status FEN: 24-hour I/O goal: even I/O over 24 hours far from goal despite 500ml blous Bolus prn to maintain goal Continue florinef Will wait until through vasospasm window before allow to diurese more aggressively GI: More awake, try PO diet. If remains drowsy after CSF drained, hold PO, possible Dobhoff, T F Keep Dobhoff out for now Feeding: regular, Ulcer Prophylaxis: Ranitidine ID/HO: Slight bump in WBC + fevers. Await arellano-cx results. No obvious source. Aspiration? Check CXR Thromboprophylaxis: SCDs Endocrine: no active issues, Glycemic control: not indicated GERTRUDE GRANADOS MD un, [place] - 10/28/2007 5: 40 AM PDT NEUROSURGERY PROGRESS NOTE Author: GALILEO LANDEROS MD Attending Physician: Magnolia Diego HPI/Interval Update: No acute events overnight. Physical Exam: BP 133/65 | Pulse 70 | Temp 38 C (100.4 F) | Resp 22 | Ht 1.676 m (5' 6") | Wt 56.8 kg (125 lbs 3.5 oz) | SpO2 96% Systolic (24hrs), Av mmHg, Min:103 mmHg, Max:167 mmHg Diastolic (24hrs), Av mmHg, Min:48 mmHg, Max:88 mmHg Pulse Av.5 Min: 70 Max: 96 Temp Av.7 C (99.8 F) Min: 36.6 C (97.9 F) Max: 38.7 C (101.7 F) Resp Av.8 Min: 20 Max: 33 SpO2 Av.9 % Min: 92 % Max: 97 % Intake/Output Summary (Last 24 hours) at 10/27 05 Last data filed at 10/27 0500 Gross per 24 hour Intake 3032 ml Output 4967 ml Net -1935 ml Lab Results Basename Value Date/Time NA 141 10/28/07 0001 K 3.6 10/28/07 0001 CR 0.66 10/28/07 0001 HCT 29.1* 10/28/07 0001 WBC 12.8* 10/28/07 0001 PLT 273 10/28/07 0001 INR Not Recd 10/18/07 0501 ] CULTURE RESULT (no units) Date Value 10/27/07 Respiratory Culture Source...............: Sputum Sputum Culture: Gram stain shows the presence of significant oropharyngeal contamination. Final Report Patient is A+Ox3, Names 5/5, PERRLA, EOMI, Face symmetric, tongue ML Her motor exam is 5/5 allover, normal bulk and tone Sensations are ILT Reflexes are 2/4 allover. EVD was clamped and patient's exam is unchanged. CSF protein 78, WBC 23 and RBC [address]. TCD pending. CT showed the hydrocephalus is slightly worse after EVD has been clamped. Assessment and Plan: Neuro stable. Will monitor for signs of SAH. Will keep EVD for now. IF patient indedd asymptomatic, EVD can be disconnected, Will send CSF again. anaArlette gastelum - 10/27/2007 3:22 PM PDTNISCU CARE MANAGEMENT DISCHARGE PLANNING NOTE Course: Critically ill: Continues in vasospasm at high risk for stroke or seizure. EVD rais ed to 20. TCDs. Appropriately responsive but continues to be drowsy. OT working with [facility] ed endurance and balance - preliminary recommendation is SNF on discharge. Speech assessed c an have recreational feeds with TF supplementation. PT visit pending for today. Patient and Family Discharge Counseling: Not at bedside, but are expected back later. Sophie severino possible discharge plan with ALEKSANDAR Shirley. Assessment: The patient would benefit from SNF discharge for rehabilitation. Segundo , FMS determined patient will not meet disability criteria for Medicaid, so will not have ac cess to SNF placement. PLAN: 1. Discharge plan will need to focus on acute rehab to optimize function and family c aregiver teaching. 2. Care Management will follow. Arlette Lee RN, GNP pgr [phone] José Miguel Kim - 10/26 11:30 AM PDT NEURO-ICU ATTENDING AUTHOR: JOSÉ MIGUEL DAS M.D. I have examined and reviewed this patient with the house staff and PA, and agree with Dr. Raine gomez's documentation. Mrs. 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 She remains at a significant risk for vasospasm and ischemic strokes. S he is arousable and able to follow simple commands. Agitated overnight requiring precedex. I CU day # 9 POD# 9 PBD#9 Physical Exam: BP 151/81 | Pulse 85 | Temp 36.8 C (98.2 F) | Resp 16 | Ht 1.676 m (5' 6") | Wt 56.8 kg (125 lbs 3.5 oz) | SpO2 97% Systolic (24hrs), Av mmHg, Min:105 mmHg, Max:163 mmHg Diastolic (24hrs), Av mmHg, Min:56 mmHg, Max:81 mmHg Pulse Av.6 Min: 61 Max: 89 Temp Av.1 C (98.8 F) Min: 36.5 C (97.7 F) Max: 38.1 C (100.6 F) Resp Av.2 Min: 16 Max: 31 SpO2 Av.6 % Min: 88 % Max: 99 % Intake/Output Summary (Last 24 hours) at 10/26 528 Last data filed at 10/26 050 Gross per 24 hour Intake 3270.6 ml Output 2894 ml Net 376.6 ml Lab Results Basename Value Date/Time NA 146* 10/27/07 012 K 3.7 10/27/07 012 CR 0.79 10/27/07 012 HCT 27.7* 10/27/07 012 WBC 11.2* 10/27/07 012 PLT 220 10/27/07 0120 INR Not Recd 10/18/07 0501 ] EVD at 20, output was 186. ICP 5-15. TCD 180/84 (ysterday 205/106) Plan: 1) Continue neurochecks; Nimodipine; Follow TCDs for vasospasm. 2) Continue cardiopulmonary monitoring. Minimize diuresis. Bronchodilators. Pulmonary toile t. 3) DVT/GI prophylaxis. 4) Glycemic control and nutritional support. 5) PT/OT. I have spent 42 min of critical care time at the bedside. usholtCheco - 10/27/19 08 9:27 AM PDTPhysical Therapy Evaluation Activity: Up to chair TID Precautions: EVD, fall risk; wrist restraints D/T impulsivity; vasospasm watch until 10/29/07 ; HOB >30*. Crani precautions. Admitting Diagnosis: subarachnoid hemorrhage 57 y/o female with two week h/o headache accociated with L ear infection presented to an [facility] 10/17/07 and found to have a SAH. Transferred to [facility] for care. Now s/p A-com aneurysm clip ping with EVD. Pt extubated 8/28/08. Re-intubated 10/22/07 with respiratory distress. Extubat ed 10/24/2007. 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 Has increased difficulty with extra stimu li in the room. Short Order Cook Memory: not formally tested, appears WNL for personal history Short Term Memory: not formally tested Judgment /Safety / Awareness: impaired-impulsive, reaching for Dobhoff Attention / Concentration: has difficulty attending to tasks Physical Assessment Pain: no pain at rest PROM: WFL B LE AROM: WFL B LE, refer to OT evaluation for UE assessment Strength: 5/5 R LE, pt with decreased command following during L LE testing- knee extension appears 4+/5, 4+/5 flexion, ankle DF 5/5 Sensation: intact to LT B LE Bed Mobility: mod assist rolling to the right Transfers: Supine <>sit: Mod assist Sit <>stand: Min assist Bed <>Chair: Mod assist. Pt with 2 episodes of LE buckling, needs cues for extension. Balance Static sitting: Fair, with close SBA Dynamic sitting: Fair, with CGA Static standing: Poor, due to LE buckling. Requires min assist Dynamic standing: Poor, due to LE buckling. Requires mod assist Gait: Decreased extension through LEs, poor LE progression/floor clearance. Mod assist at trunk x 2 feet to chair. Knowledge of precautions: Poor due to impulsivity. Vitals: stable during session; please refer to flowsheet Assessment: 57 yo female sp crani for aneurysm clipping, now with EVD; previously independ ent at home with family prior to illness. She presents with poor safety awareness, is impuls chon and requires increased assist for functional mobility, standing balance and gait due to unsteadiness. Acute PT is appropriate to address these issues. Recommendations: pt currently has mobility/balance needs warranting SNF rehab. Rehab Potential: Good DME Needs: To be determined, possible FWW Goals Due Date: 11/17/07 1. 100% command following. 2. Verbalize and adhere to crani precautions 3. SBA supine to sit 4. SBA sit to stand and bed to chair transfer. 5. CGA dynamic standing balance x 5 minutes. 6. Progress gait training when off vasospasm watch/EVD out (re-assess) Treatment Plan: therapeutic activity, balance, gait training when appropriate Frequency: 6x/wk Treatment plan / goals discussed with Patient and family Treatment time: time in/out: Checo Rodgers, PT Diego Connelly - 10/27/2007 8:03 AM PDTSpeefay Language Pathology Progress Note S: "Applejuice" re: "Can I get you something to drink?" O: Pt seen at bedside to address dysphagia goals (see below for specifics). Pt sitting up right in bed, receiving 3 L of oxygen via nasal cannula. Pt response time conts to be slow but pt's alertness conts to improve. Pt no longer receiving Precedex per PM nurse. Pt orien eli to [place], [place]. Pt did not respond to further orientation questions. +Flat affect. Mi nimal eye contact. Pt presented w/ 4 oz of thin liquids and 1 cracker (Regular solid). Pt de mo'd slowed mastication w/ evidence of oral residue throughout pt's oral cavity following tr ial most likely related to xerostomia. 3-4 liquid washes required to clear oral residue. +d elay in trigger +complete hyolaryngeal elevation, -cough, -throat clear, -change in vocal qu ality following trials. Nsg encouraged to advance pt's diet should pt demonstrated sustaine d attention. Education: SEE MULTIDISCIPLINARY EDUCATIONAL RECORD FOR DETAILED PLAN; focus this session to patient includes aspiration precautions. Education Outcome: Patient able to verbalize w ith max cues . A: Impression: Pt tolerated sips of thin liquids and tx trials of Regular solids w/out s/s of aspiration. Mastication of solids was prolonged w/ +oral residue. Pt would benefit from softer/moist food to begin with. Pt continues to be more alert today, however, nsg reporte d pt's MS conts to fluctuate. Nsg encouraged to advance pt's diet to Mech Soft and thins as pt's MS improves Quality of participation: Good Goal progress: progressing slowly Goals see below: Pt will tolerate least restrictive diet w/out s/s of aspiration. P: 1. Recreational PO (mech soft, puree, or thin liquids) with 1:1 nursing supervision when p t is 100% alert, interactive, demonstrating ability to sustain attention. 2. Diet advancement to Mechanical Soft and thin liqudis when pt's MS improves 3. Primary nutritional and hydration needs met via TF if possible 4. Medications via TF 5. ST to follow pt for diet advancement/tolerance 5x/week 6. Cognitive evaluation if/when appropriate Time In: 7:30-Time Out-8:00 iDego Bliss MA,CCC-AIR SHOVEL OPERATOR Speech Language Pathology [phone] 10/27/2007 urrow, Gertrude - 06/2007 7:25 AM PDT ICU DAILY PROGRESS NOTE ID: 57 y.o. y/o female admitted 10/18/2007 4:14 AM. HH4, F3, PBD 9, POD 9 Patient Active Hospital Problem List: COPD (10/24/2007) SAH (Subarachnoid Hemorrhage) (10/24/2007) HTN (10/24/2007) GERD (Gastroesophageal Reflux Disease) (10/24/2007) Chronic Pain (10/24/2007) Otitis Media (10/24/2007) Keflex preadmit Past Medical History Diagnosis Date GERD (Gastroesophageal Reflux Disease) HTN Nicotine Addiction COPD Otitis Media recent abx preadmit Chronic Pain E: EVD raised to 20cm A little more drowsy this am Precedex off Neurological: Exam: alert, arousable, but drowsy, CN 2-12 intact, moves all ext, but difficult to obtain exam 2/2 drowsiness ICP: 5 - 11; EVD output: 191/24 hrs; Drain set at: 20cm TCD's: R 5.2 <-- 7.5 L 2.4 <-- 3.2 Meds: nimodipine, statin, flourinef 0.1 TID Cardiovascular: Goal BP(+/-CVP: <200 Systolic (24hrs), Av mmHg, Min:105 mmHg, Max:163 mmHg Diastolic (24hrs), Av mmHg, Min:56 mmHg, Max:81 mmHg Pulse Av.0 Min: 61 Max: 96 CVP: 4-17 Respiratory: Exam: some bibasilar crackles, otherwise CTA RR: 16-27; 02 sat: >92 CXR: none from today Meds: combivent Fi02: 4L NC FEN: Intake/Output Summary (Last 24 hours) at 10/26 725 Last data filed at 10/26 599 Gross per 24 hour Intake 3277.6 ml Output 2631 ml Net 646.6 ml IV fluids: 65; goal/hr: total fluids 100/hr Cumulative (hospital stay) I/O: +4.1; Admit wt: Wt - Scale: 56.8 kg (125 lbs 3.5 oz) (10/18/07 5:00 AM); Chemistries Last 96 Hours (or 3 results): Recent Labs Basename 10/27/07 0120 10/26/07 1700 10/26/07 0844 10/26/07 0843 10/26/07 0120 10/25/07 0200 NA 146* Combined.|143 -- 143 145* -- K 3.7 3.4 Combined. 2.5* -- -- CL 116* -- -- -- 113* 116* BICARB 25 -- -- -- 25 24 BUN 12 -- -- -- 8 11 CR 0.79 -- -- -- 0.69 0.58* CA 8.3* -- -- -- 8.1* 6.8* MG 1.9 -- -- -- 2.0 1.6* PO4 3.6 -- -- -- 3.3 2.7 AST -- -- -- -- -- -- ALT -- -- -- -- -- -- TBILI -- -- -- -- -- -- AP -- -- -- -- -- -- ALB 2.6* -- -- -- 2.9* 2.5* TP -- -- -- -- -- -- GI: Diet: NPO except for recreational eating TF rate: 35/hr Meds: Recent Labs Basename 10/27/0711910/26/0711910/25/07199 AST -- -- -- ALT -- -- -- AP -- -- -- TBILI -- -- -- DIRBILI -- -- -- ALB 2.6* 2.9* 2.5* Heme/ID: Tm: Temp (24hrs), Av.3 C (99.1 F), Min:36.5 C (97.7 F), Max:38.4 C ( 101.1 F) Tc: Last 1 Encounter Temp Readings: Date Temp Temp Src 10/18/2007 38.4 C (101.1 F) CBC with diff last 96 hours (or 3 results) Recent Labs Basename 10/27/0711910/26/0711910/25/0719910/24/07 1200 WBC 11.2* 13.3* 14.1* Dup req HB 9.4* 9.7* 9.4* Dup req HCT 27.7* 28.2* 27.5* Dup req PLT 220 203 191 Dup req NEUTROPERC -- -- -- -- BANDPCT -- -- -- -- LYMPHPERC -- -- -- -- MONOPERC -- -- -- -- BASOPERC -- -- -- -- EOSPERC -- -- -- -- No results found for this basename: INR:4 in the last 72 hours Antibiotics: Zosyn day: 08/27 Up to Last 5 culture results: CULTURE RESULT (no units) Date Value 10/24/07 CSF Culture Source...............: Cerebrospinal Fluid RLB Gram Stain ...........: Gram smear performed at [facility]. Culture: Preliminary Report: No growth after 1 day. Culture examined daily. Report will be updated if growth occurs. Further report to follow. 10/22/07 CSF Culture Source...............: Cerebrospinal Fluid RLB Gram Stai n...........: Gram smear performed at [facility]. Culture: Final Report: No growth afte r 3 days. Final Report 10/22/07 Blood Culture Source..................: Central Line Blood Result. .................. Preliminary: No growth at 4 days. 10/19/07 CSF Culture Source...............: Ventricular Fluid Cerebrospinal Flu id RLB Gram Stain...........: Gram smear performed at [facility]. Culture: Final Repo rt: No growth after 3 days. Final Report Endocrine: Insulin: not indicated CBG Result ($) Av.5 Min: 136 Max: 149 Current Medications: Current Inpatient Medications Medication Dose Route Frequency acetaminophen (aka TYLENOL) liquid 325-650 mg 325-650 mg Feeding tube EVERY 4 HOURS NEEDED albuterol (aka PROVENTIL, VENTOLIN) 90 mcg/Actuation inhaler 4 Puff 4 Puff Inhalation E VERY 4 HOURS NEEDED albuterol-ipratropium (aka COMBIVENT) inhaler 4 Puff 4 Puff Inhalation FOUR TIMES DAILY bisacodyl (aka DULCOLAX) suppository 10 mg 10 mg Rectal TWICE DAILY NEEDED dexmedetomidine 200 mcg in NaCl 0.9 % IV infusion 0.2-0.7 mcg/kg/hr Intravenous CONTINU OUS docusate sodium liquid 50 mg 50 mg Feeding tube TWICE DAILY fentanyl (aka SUBLIMAZE) injection 25-75 mcg 25-75 mcg Intravenous EVERY 2 HOURS NEE DED fentanyl in NaCl 0.9% (aka SUBLIMAZE) IV infusion 10-150 mcg/hr 10-150 mcg/hr Intraveno us CONTINUOUS fludrocortisone (aka FLORINEF) tablet 0.1 mg 0.1 mg Oral THREE TIMES DAILY haloperidol lactate (aka HALDOL) injection 2-5 mg 2-5 mg Intravenous EVERY 4 HOURS N EEDED labetalol (aka NORMODYNE,TRANDATE) injection 10-40 mg 10-40 mg Intravenous EVERY 10 MIN UTES NEEDED lansoprazole 3 mg/mL suspension 30 mg 30 mg Feeding tube DAILY magnesium hydroxide (aka MILK OF MAGNESIA) suspension 30 mL 30 mL Oral EVERY 4 HOURS NEEDED metoclopramide (aka REGLAN) injection 5-10 mg 5-10 mg Intravenous EVERY 4 HOURS NEED ED miconazole (aka SECURA) 2 % extra thick cream Topical TWICE DAILY NaCl 0.9%-KCl 20 mEq IV infusion Intravenous CONTINUOUS niCARdipine 0.2 mg/mL in NaCl 0.9% IV infusion 5-15 mg/hr Intravenous CONTINUOUS nimodipine (aka NIMOTOP) capsule 60 mg 60 mg Oral EVERY 4 HOURS norepinephrine 32 mcg/mL in NaCl 0.9% IV infusion (Pyxis) 0.05-3 mcg/kg/min Intravenou s CONTINUOUS ondansetron (aka ZOFRAN) injection 4 mg 4 mg Intravenous EVERY 12 HOURS NEEDED oxycodone (aka ROXICODONE) oral solution 5-15 mg 5-15 mg Oral EVERY 3 HOURS NEEDED oxycodone immediate release (aka ROXICODONE) tablet 5-15 mg 5-15 mg Oral EVERY 3 HOURS NEEDED piperacillin-tazobactam (aka ZOSYN) IV 4.5 g 4.5 g Intravenous EVERY 6 HOURS potassium chloride (aka KAOCHLOR) liquid 10-40 mEq 10-40 mEq Oral NEEDED potassium chloride IV 20 mEq 20 mEq Intravenous NEEDED pravastatin (aka PRAVACHOL) tablet 40 mg 40 mg Oral AT BEDTIME promethazine (aka PHENERGAN) injection 6.25-12.5 mg 6.25-12.5 mg Intravenous EVERY 4 HO URS NEEDED propofol (aka DIPRIVAN) injection 28.4-3,408 mcg/min 0.5-60 mcg/kg/min Intravenous CONT INUOUS quetiapine (aka SEROQUEL) tablet 25 mg 25 mg Oral TWICE DAILY racepinephrine (aka VAPONEFRIN) 2.25 % nebulizer solution 0.5 mL 0.5 mL Inhalation EVER Y 4 HOURS NEEDED sennosides (aka SENOKOT) liquid 8.8 mg 5 mL Feeding tube EVERY 12 HOURS NEEDED sorbitol liquid 30-60 mL 30-60 mL Oral EVERY 2 HOURS NEEDED PLAN: Neurological: TCD's improved compared to 10/25 w/ R greater than L--by TCD criteria, still in vasospasm on R, but not symptomatic/non-focal Continue to watch closely NeuroSx plan to clamp EVD today. Pt already more drowsy today--watch for signs of hydroceph alus after clamping Decrease Florinef to 0.1 q day Precedex off Analgesia: prn, Sedation: none Cardiovascular: Hemodynamic goals: SBP < 200 with secured aneurysm Respiratory: Continues to sat well despite COPD picture Persistant cough, fluid positive over past 24 hrs not helping Continue pulm toilet Adjust fluids to aid in MILD diuresis FEN: 24-hour I/O goal: readjust fluid goal back to total 85/hr as Urine output became less brisk overnight Conitnue florinef GI: Recreational PO only, Feeding: Tube Feeds @ 35/hr, Ulcer Prophylaxis: Ranitidine ID/HO: Day 08/27 Zosyn for aspiration Low grade fever spike, further investigate if continues to spike Thromboprophylaxis: SCDs Endocrine: Glycemic control: insulin sliding GERTRUDE GRANADOS MD un, [place] - 10/27/2007 5: 29 AM PDT NEUROSURGERY PROGRESS NOTE Author: GALILEO LANDEROS MD Attending Physician: Magnolia Diego HPI/Interval Update: No acute events overnight. Physical Exam: BP 151/81 | Pulse 85 | Temp 36.8 C (98.2 F) | Resp 16 | Ht 1.676 m (5' 6") | Wt 56.8 kg (125 lbs 3.5 oz) | SpO2 97% Systolic (24hrs), Av mmHg, Min:105 mmHg, Max:163 mmHg Diastolic (24hrs), Av mmHg, Min:56 mmHg, Max:81 mmHg Pulse Av.6 Min: 61 Max: 89 Temp Av.1 C (98.8 F) Min: 36.5 C (97.7 F) Max: 38.1 C (100.6 F) Resp Av.2 Min: 16 Max: 31 SpO2 Av.6 % Min: 88 % Max: 99 % Intake/Output Summary (Last 24 hours) at 10/26 528 Last data filed at 10/26 0500 Gross per 24 hour Intake 3270.6 ml Output 2894 ml Net 376.6 ml Lab Results Basename Value Date/Time NA 146* 10/27/07 0120 K 3.7 10/27/07 0120 CR 0.79 10/27/07 0120 HCT 27.7* 10/27/07 0120 WBC 11.2* 10/27/07 0120 PLT 220 10/27/07 0120 INR Not Recd 10/18/07 0501 ] CULTURE RESULT (no units) Date Value 10/24/07 CSF Culture Source...............: Cerebrospinal Fluid RLB Gram Stain ...........: Gram smear performed at [facility]. Culture: Preliminary Report: No growth after 1 day. Culture examined daily. Report will be updated if growth occurs. Further report to follow. Patient is A+Ox3, PERRLA, EOMI, Face symmetric, tongue ML Follows commands in all 4s. No pronator drift. Sensations are ILT EVD at 20, output was 186. ICP 5-15. TCD 180/84 (ysterday 205/106) Assessment and Plan: 57 y.o female s/p aSAH, HH4, F4, PBD 9, s/p crani for clipping of A-comm aneurysm, POD 8. Neuro stable. Will clamp EVD. CT head in the AM. Contineu SAH protocol. Will send CSF today. José Miguel Kim - 10/26/2007 1: 40 PM PDT NEURO-ICU ATTENDING AUTHOR: JOSÉ MIGUEL DAS M.D. I have examined and reviewed this patient with the house staff and PA, and agree with Dr. Tom gallegos's documentation. Mrs. 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 She remains at a significant risk for vasospasm and ischemic strokes. S he is arousable and able to follow simple commands. Agitated overnight requiring precedex. ICU day # 8 POD# 8 PBD#8 Last Vitals: BP 130/62 | Pulse 87 | Temp 36.9 C (98.4 F) | Resp 27 | Ht 1.676 m (5' 6") | Wt 56.8 kg (125 lbs 3.5 oz) | SpO2 96% 24 Hour Vital Min/Max: Systolic (24hrs), Av mmHg, Min:117 mmHg, Max:176 mmHg Diastolic (24hrs), Av mmHg, Min:40 mmHg, Max:86 mmHg Pulse Av.8 Min: 49 Max: 95 Temp Av.6 C (97.8 F) Min: 36.3 C (97.3 F) Max: 36.9 C (98.4 F) Resp Av.9 Min: 19 Max: 30 SpO2 Av.0 % Min: 92 % Max: 100 % Intake/Output Summary (Last 24 hours) at 10/25 0641 Last data filed at 10/25 0500 Gross per 24 hour Intake 5928 ml Output 5880 ml Net 48 ml Cumulative (hospital stay) I/O: 3.8L pos ICP: 5-10 EVD: @ 15cm, 240/24 hrs TCD's: R 7.5<--5.5 L 3.2<--4.7 Recent Labs Basename 10/24/07 0524 PH 7.47* PCO2 29* PO2 72 HCO3 21 [id number] 22 [id number] 95.1 I2AINYHEJ -- FIO2 .4 Chemistries Last 96 Hours (or 3 results): Recent Labs Basename 10/26/07 0120 10/25/07 1730 10/25/07 1000 10/25/07 0200 10/24/07 0001 NA 145* Combined.|145* Combined.|143 146* -- K 3.6 3.1* 3.0* 2.4* -- CL 113* -- -- 116* 117* BICARB 25 -- -- 24 30 BUN 8 -- -- 11 19 CR 0.69 -- -- 0.58* 0.79 CA 8.1* -- -- 6.8* 7.7* MG 2.0 -- -- 1.6* 2.0 PO4 3.3 -- -- 2.7 3.9 AST -- -- -- -- -- ALT -- -- -- -- -- TBILI -- -- -- -- -- AP -- -- -- -- -- ALB 2.9* -- -- 2.5* 2.5* TP -- -- -- -- -- CBC with diff last 96 hours (or 3 results) Recent Labs Basename 10/26/07 0120 10/25/07 0200 10/24/07 1200 10/24/07 1100 WBC 13.3* 14.1* Dup req 17.5* HB 9.7* 9.4* Dup req 9.5* HCT 28.2* 27.5* Dup req 27.1* PLT 203 191 Dup req 177 NEUTROPERC -- -- -- -- BANDPCT -- -- -- -- LYMPHPERC -- -- -- -- MONOPERC -- -- -- -- BASOPERC -- -- -- -- EOSPERC -- -- -- -- Plan: 1) Continue neurochecks; Nimodipine; Follow TCDs. 2) Continue cardiopulmonary monitoring. Minimize diuresis. Bronchodilators. Pulmonary toile t. 3) Permissive hypertension. 4) DVT/GI prophylaxis. 5) Glycemic control and nutritional support. I have spent 45 min of critical care time at the bedside. José Miguel Das M.D. Liz Lockett - 10/25 9:16 AM PDT OT Evaluation October 26, 2007 See record for current OT orders, activity orders and precautions. Activity: Up to chair TID Precautions: EVD, fall risk; wrist restraints D/T impulsivity; vasospasm watch until 8; HOB >30* Admitting Diagnosis: subarachnoid hemorrhage 57 y/o female with two week h/o headache accociated with L ear infection presented to an [facility] 10/17/07 and found to have a SAH. Transferred to [facility] for care. Now s/p A-com aneurysm clip ping with EVD. Pt extubated 10/19/07. Re-intubated 10/22/07 with respiratory distress. Extub ated 10/24/2007. Procedures: S/p clipping of A-comm aneurysm with EVD placement Past Medical History Diagnosis Date GERD (Gastroesophageal Reflux Disease) HTN Nicotine Addiction COPD Otitis Media Chronic Pain Prior level of function: Unable to assess prior level at this time due to patient's cognit chon status. Assumed to be independent with ADLs. 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 Patient / Family Goal / Subjective Statement: Patient confused but pleasant Communication / Other: Language: [place] Dentures: N/A Hearing: WFL Vision: WFL Cognitive Screen: Level of alertness: Verbalizes; requres cues to maintain alertness Orientation: Person and year (not month or date) Quality of responses: Impulsive and Confused Command following: Patient follows 75% of commands with minimal verbal cues. Short Order Cook Memory: not formally tested Short Term Memory: impaired Judgement /Safety / Awareness: Poor Attention / Concentration: Poor Vision / Perception: Not formally tested. Barriers to learning: Cognitive status Affect: Blunted Physical Assessment Upper Extremity Function: undetermined dominant hand PROM: R WFL L WFL AROM: R WFL L WFL Strength: R WFL L WFL Lower Extremity Function: See PT Record Appears to have LE issues impacting ADL performance - general weakness (?). Strength appropriate for ADL transfers. Edema: none visualized Skin Integrity: Intact UE Neurological Function: Sensation: NT Muscle Tone: Intact Bilaterally Proprioception: Intact Bilaterally Gross Motor Coordination: Intact Bilaterally Fine Motor Coordination: NT U E Drift: NT Tremors: None noted Balance for ADL performance Sitting static balance: SBA Sitting dynamic balance: CGA Standing static balance: MIN A Standing dynamic balance: MOD A Endurance / Activity Tolerance: Fatigues quickly with minimal exertion - Patient with h/o COPD; baseline coughing Vital Signs - refer to doc flowsheet Mobility & ADL's Observed Transfer Training: Supine to EOB with MOD A Sits EOB with CGA Sit to stand (in preparation for ADL transfers) with MOD A Sit EOB to supine with MOD A Transfers deferred at this time d/t decreased alertness ADL's: Washes face at EOB with MIN A for thoroughness LB dressing with MAX assist in bed Education: SEE MULTIDISCIPLINARY EDUCATIONAL RECORD FOR DETAILED PLAN; focus this session to patient includes role of OT and safety while in hospital. Education Outcome: Patient no t able to verbalize understanding. Ended Session: Patient left in Bed, Sidelying L, Oxygen at 4L/min, restraints reapplied an d nursing present. Assessment: Impression: Patient is a 57 year old female s/p A-Comm aneurysm clipping with EVD placement and SAH. Currently limited by impaired activity tolerance, decreased cogniti ve status, and generalized weakness. Patient would benefit from acute OT for the below goal s. Rehab Potential: Good. Anticipated needs at discharge: SNF at this time; To be updated with pt progress Anticipated equipment needs at discharge: TBD Additional precautions identified by therapist: fall risk and craniotomy Goals: Due by November 09, 2007 1) Supine to EOB for activity with supervision 2) Transfer to BSC or chair with SBA 3) Ambulates household distances with CGA 4) Supine to EOB following activity with supervision 5) Grooming/oral hygiene with supervision 6) Self-feeding independently following set-up 7) LB dressing with SBA 8) UB dressing/bathing independently 9) Maintains alertness 100% during session 10) Demonstrates no impulsive incidents without cues during session 11) Completes simple problem-solving task with MIN vc's. Treatment Plan: ADL, ADL mobility, functional cognition Frequency: 5x per week Duration: 2 weeks Treatment plan / goals discussed with Patient. LIZ RAMÍREZ OT Diego Connelly - 008 8:35 AM PDTSpee Language Pathology Progress Note S: "I like rock music." O: Pt seen at bedside to address dysphagia goals (see below for specifics). Pt sitting up right in bed, receiving 4 L of oxygen via nasal cannula. Pt slow to respond but more alert in general. Response cont to be inappropriate (i.e., when asked what color her eyes were pt responded "garden"). Baseline congested coughing noted in the absence of PO. Pt presented with sips of thin liquids x 4 oz (puree trials refused). Pt demo'd +labial seal, functional A-P transit (no delay), a delay in trigger, and complete hyolaryngeal elevation. -cough, -t hroat clear, -evidence of audible pharyngeal pooling. Education: SEE MULTIDISCIPLINARY EDUCATIONAL RECORD FOR DETAILED PLAN; focus this session to patient includes aspiration precautions. Education Outcome: Patient not able to verbali ze . A: Impression: Pt tolerated sips of thin liquids w/out s/s of aspiration. Pt much more al ert today, however, nsg reported pt's MS conts to fluctuate. ST to defer recommending a t advancement until pt's agitation/MS improves. Quality of participation: Good Goal progress: progressing slowly Goals see below: Pt will tolerate least restrictive diet w/out s/s of aspiration. P: 1. Recreational PO (puree and thin liquids) with 1:1 nursing supervision when pt is 100% a lert, interactive, demonstrating ability to sustain attention. 2. Diet advancement to Mechanical Soft and thin liqudis when pt's MS improves 3. Primary nutritional and hydration needs met via TF if possible 4. Medications via TF 5. ST to follow pt for diet advancement/tolerance 5x/week 6. Cognitive evaluation if/when appropriate Time In: 8:15-Time Out-8:40 Diego Bliss MA,CCC-AIR SHOVEL OPERATOR Speech Language Pathology [phone] 10/26/2007 Gertrude Coleman 05/2007 6:40 AM PDT ICU DAILY PROGRESS NOTE Author: GERTRUDE GRANADOS MD ICU day # 8 POD# 8 PBD#8 HPI: 57 y.o. is a y/o female admitted 10/18/2007 4:14 AM. Current inpatient problem list includes: Patient Active Hospital Problem List: COPD (10/24/2007) SAH (Subarachnoid Hemorrhage) (10/24/2007) HTN (10/24/2007) GERD (Gastroesophageal Reflux Disease) (10/24/2007) Chronic Pain (10/24/2007) Otitis Media (10/24/2007) Keflex preadmit 24 Hour Events: increased cough, increased loose stools SUBJECTIVE: no complaints ASSESSMENT: Last Vitals: BP 130/62 | Pulse 87 | Temp 36.9 C (98.4 F) | Resp 27 | Ht 1.676 m (5' 6") | Wt 56.8 kg (125 lbs 3.5 oz) | SpO2 96% 24 Hour Vital Min/Max: Systolic (24hrs), Av mmHg, Min:117 mmHg, Max:176 mmHg Diastolic (24hrs), Av mmHg, Min:40 mmHg, Max:86 mmHg Pulse Av.8 Min: 49 Max: 95 Temp Av.6 C (97.8 F) Min: 36.3 C (97.3 F) Max: 36.9 C (98.4 F) Resp Av.9 Min: 19 Max: 30 SpO2 Av.0 % Min: 92 % Max: 100 % Intake/Output Summary (Last 24 hours) at 10/25 0641 Last data filed at 10/25 0500 Gross per 24 hour Intake 5928 ml Output 5880 ml Net 48 ml Cumulative (hospital stay) I/O: 3.8L pos ICP: 5-10 EVD: @ 15cm, 240/24 hrs TCD's: R 7.5<--5.5 L 3.2<--4.7 Neurological: Mental Status: General: Awake, alert, not oriented to place and time Concentration and attention span: Normal Language: Fluent and articulate without evidence of aphasia or dysarthria Cranial Nerves: 2-12 intact Motor: 5/5 in all ext HEENT: NCAT Cardiovascular: RRR, no m/r/g Respiratory: Mild bi-basilar crackles GI: Soft, NT/ND NABS BM: multiple small volume, loose stools / Renal: ID/HO: EVD day 8 Endocrine: CBG range: 142-147 Insulin: none Musculoskeletal: Extremities: No c/c/e Pulses: Good distal pulses, warm and well perfused Skin: No rashes or significant breakdown Recent Labs Basename 10/24/07 0524 PH 7.47* PCO2 29* PO2 72 HCO3 21 [id number] 22 [id number] 95.1 [id number] -- FIO2 .4 Chemistries Last 96 Hours (or 3 results): Recent Labs Basename 10/26/07 0120 10/25/07 1730 10/25/07 1000 10/25/07 0200 10/24/07 0001 NA 145* Combined.|145* Combined.|143 146* -- K 3.6 3.1* 3.0* 2.4* -- CL 113* -- -- 116* 117* BICARB 25 -- -- 24 30 BUN 8 -- -- 11 19 CR 0.69 -- -- 0.58* 0.79 CA 8.1* -- -- 6.8* 7.7* MG 2.0 -- -- 1.6* 2.0 PO4 3.3 -- -- 2.7 3.9 AST -- -- -- -- -- ALT -- -- -- -- -- TBILI -- -- -- -- -- AP -- -- -- -- -- ALB 2.9* -- -- 2.5* 2.5* TP -- -- -- -- -- CBC with diff last 96 hours (or 3 results) Recent Labs Basename 10/26/07 0120 10/25/07 0200 10/24/07 1200 10/24/07 1100 WBC 13.3* 14.1* Dup req 17.5* HB 9.7* 9.4* Dup req 9.5* HCT 28.2* 27.5* Dup req 27.1* PLT 203 191 Dup req 177 NEUTROPERC -- -- -- -- BANDPCT -- -- -- -- LYMPHPERC -- -- -- -- MONOPERC -- -- -- -- BASOPERC -- -- -- -- EOSPERC -- -- -- -- Lab Results Lab Test Name Results Date/Time TBILI Not Recd 10/18/07 AP Not Recd 10/18/07 TP Not Recd 10/18/07 ALB 2.9 10/26/07 AST Not Recd 10/18/07 ALT Not Recd 10/18/07 No results found for this basename: INR:4 in the last 72 hours No results found for this basename: PHENYTOIN:4 in the last 72 hours CULTURE RESULT (no units) Date Value 10/24/07 CSF Culture Source...............: Cerebrospinal Fluid RLB Gram Stain ...........: Gram smear performed at [facility]. Culture: Preliminary Report: No growth after 1 day. Culture examined daily. Report will be updated if growth occurs. Further report to follow. 10/22/07 CSF Culture Source...............: Cerebrospinal Fluid RLB Gram Stai n...........: Gram smear performed at [facility]. Culture: Final Report: No growth afte r 3 days. Final Report 10/22/07 Blood Culture Source..................: Central Line Blood Result. .................. Preliminary: No growth at 3 days. 10/19/07 CSF Culture Source...............: Ventricular Fluid Cerebrospinal Flu id RLB Gram Stain...........: Gram smear performed at [facility]. Culture: Final Repo rt: No growth after 3 days. Final Report INFUSIONS: IV Fluids: 20/hr Sedation Precedex 0.5/hr Current Medications: Current Inpatient Medications Medication Dose Route Frequency acetaminophen (aka TYLENOL) liquid 325-650 mg 325-650 mg Feeding tube EVERY 4 HOURS NEEDED albuterol (aka PROVENTIL, VENTOLIN) 90 mcg/Actuation inhaler 4 Puff 4 Puff Inhalation E VERY 4 HOURS NEEDED albuterol-ipratropium (aka COMBIVENT) inhaler 4 Puff 4 Puff Inhalation FOUR TIMES DAILY bisacodyl (aka DULCOLAX) suppository 10 mg 10 mg Rectal TWICE DAILY NEEDED dexmedetomidine 200 mcg in NaCl 0.9 % IV infusion 0.2-0.7 mcg/kg/hr Intravenous CONTINU OUS docusate sodium liquid 50 mg 50 mg Feeding tube TWICE DAILY fentanyl (aka SUBLIMAZE) injection 25-75 mcg 25-75 mcg Intravenous EVERY 2 HOURS NEE DED fentanyl in NaCl 0.9% (aka SUBLIMAZE) IV infusion 10-150 mcg/hr 10-150 mcg/hr Intraveno us CONTINUOUS fludrocortisone (aka FLORINEF) tablet 0.1 mg 0.1 mg Oral THREE TIMES DAILY haloperidol lactate (aka HALDOL) injection 2-5 mg 2-5 mg Intravenous EVERY 4 HOURS N EEDED labetalol (aka NORMODYNE,TRANDATE) injection 10-40 mg 10-40 mg Intravenous EVERY 10 MIN UTES NEEDED lansoprazole 3 mg/mL suspension 30 mg 30 mg Feeding tube DAILY magnesium hydroxide (aka MILK OF MAGNESIA) suspension 30 mL 30 mL Oral EVERY 4 HOURS NEEDED metoclopramide (aka REGLAN) injection 5-10 mg 5-10 mg Intravenous EVERY 4 HOURS NEED ED miconazole (aka SECURA) 2 % extra thick cream Topical TWICE DAILY NaCl 0.9%-KCl 20 mEq IV infusion Intravenous CONTINUOUS niCARdipine 0.2 mg/mL in NaCl 0.9% IV infusion 5-15 mg/hr Intravenous CONTINUOUS nimodipine (aka NIMOTOP) capsule 60 mg 60 mg Oral EVERY 4 HOURS norepinephrine 32 mcg/mL in NaCl 0.9% IV infusion (Pyxis) 0.05-3 mcg/kg/min Intravenou s CONTINUOUS ondansetron (aka ZOFRAN) injection 4 mg 4 mg Intravenous EVERY 12 HOURS NEEDED oxycodone immediate release (aka ROXICODONE) tablet 5-15 mg 5-15 mg Oral EVERY 3 HOURS NEEDED piperacillin-tazobactam (aka ZOSYN) IV 4.5 g 4.5 g Intravenous EVERY 6 HOURS potassium chloride (aka KAOCHLOR) liquid 10-40 mEq 10-40 mEq Oral NEEDED potassium chloride IV 10 mEq 10 mEq Intravenous NEEDED potassium chloride IV 20 mEq 20 mEq Intravenous NEEDED pravastatin (aka PRAVACHOL) tablet 40 mg 40 mg Oral AT BEDTIME promethazine (aka PHENERGAN) injection 6.25-12.5 mg 6.25-12.5 mg Intravenous EVERY 4 HO URS NEEDED propofol (aka DIPRIVAN) injection 28.4-3,408 mcg/min 0.5-60 mcg/kg/min Intravenous CONT INUOUS quetiapine (aka SEROQUEL) tablet 25 mg 25 mg Oral TWICE DAILY racepinephrine (aka VAPONEFRIN) 2.25 % nebulizer solution 0.5 mL 0.5 mL Inhalation EVER Y 4 HOURS NEEDED sennosides (aka SENOKOT) liquid 8.8 mg 5 mL Feeding tube EVERY 12 HOURS NEEDED sodium acetate-chloride (50:50) 3% IV infusion (hypertonic) 1000 mL Intravenous CONTIN UOUS sorbitol liquid 30-60 mL 30-60 mL Oral EVERY 2 HOURS NEEDED Imaging: CXR bibasilar atelectasis, mild effusion bilat; official read pending PLAN: Neurological: TCD's continue to be elevated w/ R greater than L--by TCD criteria, in vasospasm, but not s ymptomatic/non-focal Continue to watch closely Not an angio candidate per NeuroSx Continue Florinef Titrate down precedex HEENT: No active issues. Cardiovascular: SBP<200 with secured aneurysm Respiratory: Sating well despite COPD picture Increased cough, CXR looks a little wet; afebrile, resolving leukocytosis Continue DuoNebs prn Autodiuresis will aid in pulm status GI: No active issues. / Renal: 24-hour I/O goal: even, Na+ goal: 135-145, Total Fluids: 85 ml/hr Increased urine output, Na holding D/C 3% ID/HO: Continue Zosyn for aspiration, day 6/7 Endocrine: No active issues. Musculoskeletal / Skin: No active issues. Routine decubitus ulcer prevention. Routine ICU Care: Lines: EVD, CVC, Aleja Sodium goal: 140-150 Feeding: TF Analgesia: prn Sedation: precedex Thromboprophylaxis: scd's Head of bed: elevated Ulcer prophylaxis: ranitidine Glycemic control: SSI Disposition: ICU care This patient has been staffed with Dr. Das, attending physician, who agrees with the oksana lizarraga assessment and plan. GERTRUDE GRANADOS MD un, [place] - 10/26/2007 5: 20 AM PDT NEUROSURGERY PROGRESS NOTE Author: GALILEO LANDEROS MD Attending Physician: Magnolia Diego HPI/Interval Update: No acute events overnight. Physical Exam: BP 147/70 | Pulse 81 | Temp 36.3 C (97.3 F) | Resp 30 | Ht 1.676 m (5' 6") | Wt 56.8 kg (125 lbs 3.5 oz) | SpO2 97% Systolic (24hrs), Av mmHg, Min:117 mmHg, Max:177 mmHg Diastolic (24hrs), Av mmHg, Min:40 mmHg, Max:86 mmHg Pulse Av.3 Min: 49 Max: 89 Temp Av.5 C (97.7 F) Min: 36.3 C (97.3 F) Max: 36.7 C (98.1 F) Resp Av.6 Min: 19 Max: 30 SpO2 Av.1 % Min: 92 % Max: 100 % Intake/Output Summary (Last 24 hours) at 10/25 05 Last data filed at 10/25 040 Gross per 24 hour Intake 5828 ml Output 5930 ml Net -102 ml Lab Results Basename Value Date/Time NA 145* 10/26/07 0120 K 3.6 10/26/07 0120 CR 0.69 10/26/07119 HCT 28.2* 10/26/07119 WBC 13.3* 10/26/07 0120 PLT 203 10/26/07 0120 INR Not Recd 10/18/07 0501 ] CULTURE RESULT (no units) Date Value 10/24/07 CSF Culture Source...............: Cerebrospinal Fluid RLB Gram Stain ...........: Gram smear performed at [facility]. Culture: Preliminary Report: No growth after 1 day. Culture examined daily. Report will be updated if growth occurs. Further report to follow. Patient is A+Ox3, PERRLA, EOMI, Face symmetric, tongue ML Her motor exam is 5/5 allover, no pronator drift. Sensations are ILT EVD at 15, out was 240. ICP 8-10. TCD 205/106 Assessment and Plan: 57y.o female, s/p SAH, PBD 8, s/p open crani for clipping, POD 8. Neuro stable. Angio today to r/o vasospasm Will raise EVD to 20 above tragus. Continue SAH protocol. Copy melie Byrne - 10/25/2007 1: 52 PM PDT Nutrition Consult Consult received for TF for Gloria Adhikari a 57 y.o. Female s/p Crani for clipping ant comm artery aneurysm PMH COPD, HTN, GERD Diet:[facility] soft TF Rx Nutren 1.5@ 35 I/O 3270/5137 BMx mult liq CBG 100-120 Pert Meds:noted Labs: Lab Results Lab Test Name Results Date/Time NA Combined. 10/25/07 K 2.4 10/25/07 CL 116 10/25/07 BICARB 24 10/25/07 BUN 11 10/25/07 CR 0.58 10/25/07 GLU 100 10/25/07 CA 6.8 10/25/07 MG 1.6 10/25/07 PO4 2.7 10/25/07 AST Not Recd 10/18/07 ALT Not Recd 10/18/07 AP Not Recd 10/18/07 TBILI Not Recd 10/18/07 ALB 2.5 10/25/07 Nutrition Diagnosis Problem: Pt with inadequate food and michelle intake Etiology r/t inability to take food and michelle by mouth d/t AMS, crani As shown by need for enteral nutrition support for agitation Nutrition Goals Ht. 66" Wt 56.8 kg Energy needs: 9695-2165 Kcal( 25-30 Kcal/kg) Protein needs: 74-85 Gm Pro (1.3-1.5 Gm pro/kg) Recommendations for Tube Feeding Product Nutren 1.5 Goal rate 35 Provides 1260 kcal and 50 gm protein Plan While pt still agitated, TF to continue as back-up per AIR SHOVEL OPERATOR eval Monitor po intake may consider nocturnal TF #[id number] Electronically sign ed by Amelie Byrne at 10/25/2007 2:03 PM PDTBrowjalen, Diego - 10/25/2007 1:24 PM PDTSpeech Language Pathology Progress Note S: "I'm fine" re: "How are you?" O: New orders received and appreciated. Pt's swallow reassessed 2/2 pt's fluctuating MS. Pt seen at bedside, sitting upright 90 degrees in bed, receiving 3 liters of oxygen via yahaira al cannula. Pt's O2 sats remained >92% throughout session. Pt given sedation meds prior to session 2/2 pt's prolonged agitation/change in MS. Pt demo'd mod difficulty sustaining att ention, demonstrated by pt's tendency to fall asleep with PO in mouth and/or during conversa tion. Pt presented with limited sips of thin liquids x 4 oz via straw and puree x3 tbs. Pt demo'd functional bolus acceptance and A-P transit. +Manipulation. +delay in trigger. Slowe d but complete hyolaryngeal elevation. Cough x1/7 trials of thin liquids via straw-although pt also presented with a baseline congested cough. -cough, -throat clear, -evidence of phar yngeal pooling w/ tx trials of puree and subsequent trials of thin. Further trials deferred 2/2 pt's fluctuating MS/inability to sustain attention. Education: SEE MULTIDISCIPLINARY EDUCATIONAL RECORD FOR DETAILED PLAN; focus this session to patient includes aspiration precautions. Education Outcome: Patient not able to verbali ze . A: Impression: Pt tolerated limited trials of puree and thin liquids, however pt is at sig nificant aspiration 2/2 pt's fluctuating MS/agitation. Pt would benefit from recreational t rials of PO when pt is 100% alert/interactive with nsg. Primary nutrition/hydration met via TF recommended. Quality of participation: Limited by pt's inability to attend Goal progress: progressing slowly Goals see below: Pt will tolerate least restrictive diet w/out s/s of aspiration. P: 1. Recreational PO (puree and thin liquids) with 1:1 nursing supervision when pt is 100% a lert, interactive, demonstrating ability to sustain attention. 2. Primary nutritional and hydration needs met via TF if possible 3. Medications via TF 4. ST to follow pt for diet advancement/tolerance 5x/week 5. Cognitive evaluation if/when appropriate Diego Bliss MA,CCC-AIR SHOVEL OPERATOR Speech Language Pathology -[id number] 10/25/2007 iego Bliss - 11:57 AM PDTSpeech Pathology: New orders received and appreciated. ST attempted t o see pt for session. Pt extremely agitated. Nsg requested ST reattempt this afternoon fol lowing administration of medications. ST to follow as able. Thanks, Diego Bliss MA,CCC-AIR SHOVEL OPERATOR Speech Pathology ksana Das - 10/25/2007 11:08 AM PDT NEURO-ICU ATTENDING AUTHOR: JOSÉ MIGUEL DAS M.D. I have examined and reviewed this patient with the house staff and PA, and agree with Dr. Raine gomez's documentation. Mrs. 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 She remains at a significant risk for vasospasm and ischemic strokes. She is arousable and able to follow simple commands. Agitated overnight. BP 169/81 | Pulse 70 | Temp 36.9 C (98.4 F) | Resp 26 | Ht 1.676 m (5' 6") | Wt 56.8 kg (125 lbs 3.5 oz) | SpO2 96% Systolic (24hrs), Av mmHg, Min:116 mmHg, Max:171 mmHg Diastolic (24hrs), Av mmHg, Min:54 mmHg, Max:131 mmHg Pulse Av.6 Min: 52 Max: 107 Temp Av.3 C (99.2 F) Min: 36.7 C (98.1 F) Max: 37.9 C (100.2 F) Resp Av.0 Min: 9 Max: 30 SpO2 Av.0 % Min: 86 % Max: 97 % Intake/Output Summary (Last 24 hours) at 10/24 518 Last data filed at 10/24 040 Gross per 24 hour Intake 3108 ml Output 4848 ml Net -1740 ml Lab Results Basename Value Date/Time NA 146* 10/25/07 0200 K 2.4* 10/25/07 0200 CR 0.58* 10/25/07 0200 HCT 27.5* 10/25/07 0200 WBC 14.1* 10/25/07 0200 PLT 191 10/25/07 0200 INR Not Recd 10/18/07 0501 ] EVD at 15, output was 208. TCD s 151/162 (down from yst 166/190) ICP < 10 mmHg Plan: 1) Continue neurochecks; Nimodipine; Follow TCDs. For cerebral angiography tomorrow. 2) Continue cardiopulmonary monitoring. Minimize diuresis. Bronchodilators. Pulmonary toil et. 3) Permissive hypertension. 4) DVT/GI prophylaxis. 5) Glycemic control and nutritional support. I have spent 40 min of critical care time at the bedside. José Miguel Das M.D. hemay - 2007 7:41 AM PDT ICU DAILY PROGRESS NOTE Author: TAYLOR GRIGGS Date of Service: 10/25/2007 HPI: 57 y.o. y/o female admitted 10/18/2007 4:14 AM. Patient Active Hospital Problem List: COPD (10/24/2007) SAH (Subarachnoid Hemorrhage) (10/24/2007) HTN (10/24/2007) GERD (Gastroesophageal Reflux Disease) (10/24/2007) Chronic Pain (10/24/2007) Otitis Media (10/24/2007) Keflex preadmit 24 Hour Events: -extreme aggitation last evening and throught the night, trying to sit up, pulling at tubes and lines, consolable for 1minute then memory loss and aggitated again. Low dose haldol, se roquel, adn opiods attempted. -diuresed well w/ lasix, stable O2 requirement -lytes replacing ASSESSMENT: Constitutional: finally sleeping on exam this am Admit wt: Wt - Scale: 56.8 kg (125 lbs 3.5 oz) (10/18/07 5:00 AM) Neurological: obeys commands, unable to assess drift, motor x 4 and sensory intact HEENT: incision and EVD CDI Cardiovascular: SR w/ PAC and occasioinal Junx Systolic (24hrs), Av mmHg, Min:116 mmHg, Max:177 mmHg Diastolic (24hrs), Av mmHg, Min:54 mmHg, Max:131 mmHg Respiratory: course B, strong cough, stridor improved, slight wheezes GI: soft, +BT, no ttp / Renal: benavides Intake/Output Summary (Last 24 hours) at 10/24 0741 Last data filed at 10/24 0700 Gross per 24 hour Intake 3270 ml Output 5137 ml Net -1867 ml 75mls/hr Lab Results Basename Value Date/Time NA 146* 10/25/07 0200 NA 151* 10/24/07 1720 NA Combined. 10/24/07 0850 K 2.4* 10/25/07 0200 K 3.0* 10/24/07 1720 K Combined. 10/24/07 1700 CL 116* 10/25/07 0200 CL 117* 10/24/07 0001 CL 116* 10/23/07 0105 BICARB 24 10/25/07 0200 BICARB 30 10/24/072058 BICARB 27 10/23/075 BUN 11 10/25/070 BUN 19 10/24/072058 BUN 12 10/23/075 CR 0.58* 10/25/07 0200 CR 0.79 10/24/072058 CR 0.91 10/23/07104 GLU 100* 10/25/070 GLU 117* 10/24/072058 GLU 137* 10/23/07104 CA 6.8* 10/25/070 CA 7.7* 10/24/072058 CA 7.4* 10/23/07104 MG 1.6* 10/25/07199 MG 2.0 10/24/072058 MG 2.0 10/23/07104 PO4 2.7 10/25/07199 PO4 3.9 10/24/072058 PO4 4.3 10/23/07104 ALB 2.5* 10/25/070 ALB 2.5* 10/24/072058 ALB 2.8* 10/23/07104 ID/HO: Temp (24hrs), Av.2 C (99.0 F), Min:36.6 C (97.9 F), Max:37.9 C (100.2 F) Lab Results Basename Value Date/Time WBC 14.1* 10/25/070 WBC 17.5* 10/24/071099 WBC 14.3* 10/24/07 0001 HB 9.4* 10/25/070 HB 9.5* 10/24/071099 HB 7.9* 10/24/07 0001 HCT 27.5* 10/25/070 HCT 27.1* 10/24/07 1100 HCT 23.1* 10/24/07 0001 PLT 191 10/25/070 PLT 177 10/24/07 1100 PLT 176 10/24/07 0001 Up to Last 5 culture results: CULTURE RESULT (no units) Date Value 10/24/07 CSF Culture Source...............: Cerebrospinal Fluid RLB Gram Stain ...........: Gram smear performed at [facility]. Culture: Preliminary Report: No growth after 1 day. Culture examined daily. Report will be updated if growth occurs. Further report to follow. 10/22/07 CSF Culture Source...............: Cerebrospinal Fluid RLB Gram Stai n...........: Gram smear performed at [facility]. Culture: Final Report: No growth afte r 3 days. Final Report 10/22/07 Blood Culture Source..................: Central Line Blood Result. .................. Preliminary: No growth at 2 days. 10/19/07 CSF Culture Source...............: Ventricular Fluid Cerebrospinal Flu id RLB Gram Stain...........: Gram smear performed at [facility]. Culture: Final Repo rt: No growth after 3 days. Final Report Endocrine: 132, ss insulin Musculoskeletal: symetrical 1+edema all extremities Skin: normal Current Medications: Current Inpatient Medications Medication Dose Route Frequency acetaminophen (aka TYLENOL) liquid 325-650 mg 325-650 mg Feeding tube EVERY 4 HOURS NEEDED albuterol (aka PROVENTIL, VENTOLIN) 90 mcg/Actuation inhaler 4 Puff 4 Puff Inhalation E VERY 4 HOURS NEEDED albuterol-ipratropium (aka COMBIVENT) inhaler 4 Puff 4 Puff Inhalation FOUR TIMES DAILY bisacodyl (aka DULCOLAX) suppository 10 mg 10 mg Rectal TWICE DAILY NEEDED calcium gluconate IV 2 g 2 g Intravenous ONCE docusate sodium liquid 50 mg 50 mg Feeding tube TWICE DAILY fentanyl (aka SUBLIMAZE) injection 25-75 mcg 25-75 mcg Intravenous EVERY 2 HOURS NEE DED fentanyl in NaCl 0.9% (aka SUBLIMAZE) IV infusion 10-150 mcg/hr 10-150 mcg/hr Intraveno us CONTINUOUS haloperidol lactate (aka HALDOL) injection 2-5 mg 2-5 mg Intravenous EVERY 4 HOURS N EEDED hydrocortisone sodium succinate (aka SOLUCORTEF) injection 50 mg 50 mg Intravenous THRE E TIMES DAILY labetalol (aka NORMODYNE,TRANDATE) injection 10-40 mg 10-40 mg Intravenous EVERY 10 MIN UTES NEEDED lansoprazole (aka PREVACID) capsule 30 mg 30 mg Oral DAILY magnesium hydroxide (aka MILK OF MAGNESIA) suspension 30 mL 30 mL Oral EVERY 4 HOURS NEEDED metoclopramide (aka REGLAN) injection 5-10 mg 5-10 mg Intravenous EVERY 4 HOURS NEED ED NaCl 0.9%-KCl 20 mEq IV infusion Intravenous CONTINUOUS niCARdipine 0.2 mg/mL in NaCl 0.9% IV infusion 5-15 mg/hr Intravenous CONTINUOUS nimodipine (aka NIMOTOP) capsule 60 mg 60 mg Oral EVERY 4 HOURS norepinephrine 32 mcg/mL in NaCl 0.9% IV infusion (Pyxis) 0.05-3 mcg/kg/min Intravenou s CONTINUOUS ondansetron (aka ZOFRAN) injection 4 mg 4 mg Intravenous EVERY 12 HOURS NEEDED oxycodone immediate release (aka ROXICODONE) tablet 5-15 mg 5-15 mg Oral EVERY 3 HOURS NEEDED piperacillin-tazobactam (aka ZOSYN) IV 4.5 g 4.5 g Intravenous EVERY 6 HOURS potassium chloride (aka KAOCHLOR) liquid 10-40 mEq 10-40 mEq Oral NEEDED potassium chloride IV 10 mEq 10 mEq Intravenous NEEDED potassium chloride IV 20 mEq 20 mEq Intravenous NEEDED pravastatin (aka PRAVACHOL) tablet 40 mg 40 mg Oral AT BEDTIME promethazine (aka PHENERGAN) injection 6.25-12.5 mg 6.25-12.5 mg Intravenous EVERY 4 HO URS NEEDED propofol (aka DIPRIVAN) injection 28.4-3,408 mcg/min 0.5-60 mcg/kg/min Intravenous CONT INUOUS quetiapine (aka SEROQUEL) dose 12.5 mg 12.5 mg Oral TWICE DAILY racepinephrine (aka VAPONEFRIN) 2.25 % nebulizer solution 0.5 mL 0.5 mL Inhalation EVER Y 4 HOURS NEEDED sennosides (aka SENOKOT) liquid 8.8 mg 5 mL Feeding tube TWICE DAILY sorbitol liquid 30-60 mL 30-60 mL Oral EVERY 2 HOURS NEEDED PLAN: Neurological: -SAH, cont protocol Analgesia: prn Sedation: na -extreme aggitation, sitting up a hinderence to her care and safety concerns- haldol minima lly effective, seroquel low dose no response. No ETOH hx, and denies pain. Continue conser vative therapy and ^ seroquel for longer coverage. Consider Dexmetomidate. HEENT: incision care Cardiovascular: HTN permissive for CPP Hemodynamic goals: MAP>70, SBP<200 Respiratory: -copd- cont nebs, tolerate slightly higher Co2 d/t chronic retention -stidor- resolving, improved today cont racepi prn for strifdor, currently good oxygenation -no asp pna- likely effusion GI: Feeding: TF pending, passed [facility] soft swallow study, cont TF til PO intake is adequate for nutritional requirements Ulcer Prophylaxis: Ranitidine changed to PPI d/t hx of GERD and aggitation / Renal: 24-hour I/O goal: neg 500 today Hypomag- replaced HypoCa- replace w/ Cagluconate d/t ^ CL Hypercl- monitor HypoK- ^ aggressiveness of SS K replacement, likely d/t diuresis ID/HO: af, leukocytosis ? Infection v. Demargination from hydrocort cx neg, d/c vanco Thromboprophylaxis: SCDs Endocrine: hyperglycemia, Glycemic control: insulin sliding -suspected adrenal insufficency- taper steriods Musculoskeletal / Skin: Head of Bed: Head of Bed >30 degrees, Activity: bed rest and OOB to chair Time 44minutes in care and management of this patient. TAYLOR GRIGGS un, [employer] - 10/25/2007 5 :19 AM PDT NEUROSURGERY PROGRESS NOTE Author: GALILEO LANDEROS MD Attending Physician: Magnolia Diego HPI/Interval Update: No acute events overnight. Physical Exam: BP 169/81 | Pulse 70 | Temp 36.9 C (98.4 F) | Resp 26 | Ht 1.676 m (5' 6") | Wt 56.8 kg (125 lbs 3.5 oz) | SpO2 96% Systolic (24hrs), Av mmHg, Min:116 mmHg, Max:171 mmHg Diastolic (24hrs), Av mmHg, Min:54 mmHg, Max:131 mmHg Pulse Av.6 Min: 52 Max: 107 Temp Av.3 C (99.2 F) Min: 36.7 C (98.1 F) Max: 37.9 C (100.2 F) Resp Av.0 Min: 9 Max: 30 SpO2 Av.0 % Min: 86 % Max: 97 % Intake/Output Summary (Last 24 hours) at 10/24 518 Last data filed at 10/24 040 Gross per 24 hour Intake 3108 ml Output 4848 ml Net -1740 ml Lab Results Basename Value Date/Time NA 146* 10/25/07 0200 K 2.4* 10/25/07 0200 CR 0.58* 10/25/07 0200 HCT 27.5* 10/25/07 0200 WBC 14.1* 10/25/07 0200 PLT 191 10/25/07 0200 INR Not Recd 10/18/07 0501 ] CULTURE RESULT (no units) Date Value 10/22/07 CSF Culture Source...............: Cerebrospinal Fluid RLB Gram Stai n...........: Gram smear performed at [facility]. Culture: Preliminary Report: No growt h after 1 day. Culture examined daily. Report will be updated if growth occurs. Further report to follow. Patient is A+Ox3, Names 5/5, PERRLA, EOMI, Face symmetric, tongue ML She follows commands in all 4s, strength appears to be full. Sensations are ILT Reflexes are 2/4 allover. EVD at 15, output was 208. TCD s 151/162 (down from yst 166/190) ICP in single digits. Assessment and Plan: 57y.o female, s/p SAH, PBD 7, s/p open crani for clipping, POD 7. Neuro stable. Angio today to r/o vasospasm Will raise EVD if angio showed minimal spasm. Continue SAH protocol. Isis Spaulding CCC-AIR SHOVEL OPERATOR - 008 4:29 PM PDT Speech Dysphagia Evaluation See record for current Speech Language orders, activity orders and precautions. Admitting Diagnosis: subarachnoid hemorrhage Problem List: Patient Active Problem List Diagnoses Code COPD 496Z SAH (Subarachnoid Hemorrhage) 430X HTN 401.9BX GERD (Gastroesophageal Reflux Disease) 530.81K Chronic Pain 338.29A Otitis Media 382.9C No diagnosis found. Past Medical History Diagnosis Date GERD (Gastroesophageal Reflux Disease) HTN Nicotine Addiction COPD Otitis Media Chronic Pain Prior level of function: Reported by Patient (reliability no confirmed) Baseline diet: Regular and thins ADL: I Home Setting and Discharge Planning Information: Lives with: Spouse Current discharge plan: TBD Communication / Other: Language: [place] Hearing: WFL Vision: eyeglasses See documentation flowsheet for vitals and pain assessment/response. Cognitive Screen Level of alertness: alert 100% of visit Orientation: Person Quality of responses: Appropriate with cues, Impulsive and Confused Command followin step oral motor 100% without cues Fci Memory: not formally tested Short Term Memory: not formally tested Judgment /Safety / Awareness: Fair - pt is restrained Attention / Concentration: Fair Vision / Perception: Not formally tested Barriers to learning: Level of alerntess and Cognitive status Affect: Appropriate Observations: Oral Motor: dentures (uppers only) Able to retract lower lips, pucker and retract lips, perform bilabial seal of lips and per form cheek puffing protrudes tongue, retracts tongue and lateralize tongue Resp Status: 3L NC 94% Textures: Thin liquids via tsp and straw X4 oz Thick liquids NA Puree x 3oz Soft solids NA Solids crackers x2 Oral and Pharyngeal Phase: Pt demo adeq mastication, timely swallow initiation, no cough, throat clear or aud ph pooling, no complaints of difficulty, mild decrease oral bolus contro l, very easily distracted while chewing solids Education: SEE MULTIDISCIPLINARY EDUCATIONAL RECORD FOR DETAILED PLAN; focus this session to patient includes aspiration precautions. Education Outcome: Patient able to demonstrate with cues . Vocal quality: hoarse Speech Intelligibility: 100% Treatment focus this date: Dysphagia eval Ended session: Bed, Oxygen and Nursing Aware Assessment: Impression: Pt quiana po without overt ss aspiration, increased asp risk d/t AMS Recommedations: Rec start mech soft diet with thin liquids as quiana, upright 90 degrees for all po, supervision for all intake, d/c po for decreased pulmonary status Rehab Potential: Good. Anticipated needs at discharge: TBD Additional precautions identified by therapist: aspiration Goals: Pt will quiana least restrictive diet without overt signs and symptoms of aspiration. Treatment Plan: Dsyphagia tx and cog eval when appropriate Frequency: 5 time a week Treatment plan / goals discussed with patient and family. Time In: 16:00 Time Out: 16:30 Isis Wolf M.S., CCC-AIR SHOVEL OPERATOR #[id number] osé Miguel Das - 10/24/2007 1:17 PM PDT NEURO-ICU ATTENDING AUTHOR: JOSÉ MIGUEL DAS M.D. I have examined and reviewed this patient with the house staff and PA, and agree with Dr. Raine gomez's documentation. Mrs. 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 She is at a significant risk for vasospasm and ischemic strokes. She is arousable and able to follow simple commands. Extubated this am uneventfull y. Physical Exam: BP 107/81 | Pulse 62 | Temp 37.4 C (99.3 F) | Resp 15 | Ht 1.676 m (5' 6") | Wt 56.8 kg (125 lbs 3.5 oz) | SpO2 95% Systolic (24hrs), Av mmHg, Min:107 mmHg, Max:169 mmHg Diastolic (24hrs), Av mmHg, Min:45 mmHg, Max:83 mmHg Pulse Av.2 Min: 48 Max: 93 Temp Av.3 C (99.1 F) Min: 36.4 C (97.5 F) Max: 38.1 C (100.6 F) Resp Av.1 Min: 0 Max: 20 SpO2 Av.5 % Min: 88 % Max: 100 % Intake/Output Summary (Last 24 hours) at 10/23 0504 Last data filed at 10/23 0400 Gross per 24 hour Intake 3350.4 ml Output 2334 ml Net 1016.4 ml Lab Results Basename Value Date/Time NA 153* 10/24/07 0001 K 3.5 10/24/07 0001 CR 0.79 10/24/07 0001 HCT 23.1* 10/24/07 0001 WBC 14.3* 10/24/07 0001 PLT 176 10/24/07 0001 INR Not Recd 10/18/07 0501 ]Recent Labs Basename 10/23/07 0116 10/22/07 1834 10/22/07 0742 10/22/07 0130 10/21/07 2200 PH 7.45* 7.38 7.44 7.49* 7.51* PCO2 40 47* 37 31* 31* PO2 113* 58* 111* 86 61* HCO3 27 27 25 23 24 [id number] 28 28 26 24 25 [id number] 98.7* 82.5* 98.5* 97.1 92.0 [id number] -- -- -- -- -- FIO2 NG 100 100 NG NG Plan: 1) Continue neurochecks; Nimodipine; Follow TCDs. 2) Continue cardiopulmonary monitoring. Minimize diuresis. Bronchodilators. 3) Permissive hypertension. 4) DVT/GI prophylaxis. 5) Glycemic control and nutritional support. I have spent 45 min of critical care time at the bedside. José Miguel Das M.D. Arlette Simental - 10/23 11:28 AM PDTNSICU CARE MANAGEMENT DISCHARGE PLANNING NOTE Course: 10/22/2007 Pneumonia; started on Vanco and Zosyn. Went into respiratory failure, int ubated and put on ventilator. Today pulmonary status improved, will decrease sedating medica tions and attempt ventilator weaning. Remains a high risk for vasospasm. Neurosurgery does n ot recommend surgery. Assessment: Critically ill, making progress. Will be in NSICU for [facility]ospasm[facility] at least u ntil 10/29/2007. If remains non-funded, this will limit resources available on discharge. Un able to determine discharge plan at this time. PLAN: Will follow PT and OT evaluations. Care Management will further assess family, home e nvironment and baseline function to help with discharge planning. Arlette Lee RN, G PRODUCTION ENGINEER TRACK pgr [phone]. Oksana De La Rosa - 10/24/2007 9:18 AM PDT . ICU DAILY PROGRESS NOTE Author: TAYLOR GRIGGS Date of Service: 10/24/2007 HPI: 57 y.o. y/o female admitted 10/18/2007 4:14 AM. Patient Active Hospital Problem List: Patient Active Problem List Diagnoses Code COPD 496Z SAH (Subarachnoid Hemorrhage) 430X HTN 401.9BX GERD (Gastroesophageal Reflux Disease) 530.81K Chronic Pain 338.29A Otitis Media 382.9C Past Medical History Diagnosis Date GERD (Gastroesophageal Reflux Disease) HTN Nicotine Addiction COPD Otitis Media recent abx preadmit Chronic Pain 24 Hour Events: -significant aggitation last night and this am when sedation paused to eval neuro status an d assess resp status. -Extubated this am -Aleja not funx well d/t need for restraints -DHT pointing upward, no good placement by xray. -off pressors ASSESSMENT: Constitutional: responds to verbal and obeys commands, NAD Admit wt: Wt - Scale: 56.8 kg (125 lbs 3.5 oz) (10/18/07 5:00 AM) Neurological: unable to asssess drift, no droop , spontaneous motor x4 HEENT: incision CDI Cardiovascular: RRR Pulse Av.5 Min: 48 Max: 109 Systolic (24hrs), Av mmHg, Min:107 mmHg, Max:171 mmHg Diastolic (24hrs), Av mmHg, Min:45 mmHg, Max:85 mmHg CVP:12 Respiratory: course B, w/ stridor noted, Resp Av.6 Min: 0 Max: 39 SpO2 Av.1 % Min: 81 % Max: 100 % ABGs: Recent Labs Basename 10/24/07 0524 10/23/07 0116 10/22/07 1834 10/22/07 0742 10/22/07 0130 FIO2 .4 NG 100 100 NG PH 7.47* 7.45* 7.38 7.44 7.49* PCO2 29* 40 47* 37 31* PO2 72 113* 58* 111* 86 HCO3 21 27 27 25 23 [id number] 22 28 28 26 24 [id number] 95.1 98.7* 82.5* 98.5* 97.1 GI: soft, no ttp / Renal: benavides Intake/Output Summary (Last 24 hours) at 10/23 917 Last data filed at 10/23 0900 Gross per 24 hour Intake 3240.4 ml Output 2117 ml Net 1123.4 ml Total fluids 75/hr Lab Results Basename Value Date/Time NA Combined. 10/24/07 0850 NA 153* 10/24/072058 NA Combined. 10/23/07 1757 K 3.5 10/24/072058 K 3.2* 10/23/07 175 K Combined. 10/23/07 1012 CL 117* 10/24/072058 CL 116* 10/23/07 010 CL 114* 10/22/07244 BICARB 30 10/24/072058 BICARB 27 10/23/07104 BICARB 26 10/22/07 024 BUN 19 10/24/072058 BUN 12 10/23/07104 BUN 8 10/22/07244 CR 0.79 10/24/072058 CR 0.91 10/23/07104 CR 0.79 10/22/07244 GLU 117* 10/24/072058 GLU 137* 10/23/07104 GLU 117* 10/22/07244 CA 7.7* 10/24/072058 CA 7.4* 10/23/07104 CA 8.3* 10/22/07244 MG 2.0 10/24/072058 MG 2.0 10/23/07104 MG 2.2 10/22/07244 PO4 3.9 10/24/072058 PO4 4.3 10/23/07104 PO4 3.3 10/22/07244 ALB 2.5* 10/24/072058 ALB 2.8* 10/23/07104 ALB 3.3* 10/22/07 024 ID/HO: Temp (24hrs), Av.4 C (99.4 F), Min:36.7 C (98.1 F), Max:38.1 C (100.6 F) Lab Results Basename Value Date/Time WBC 14.3* 10/24/072058 WBC 14.0* 10/23/07104 WBC 11.1* 10/22/07244 HB 7.9* 10/24/072058 HB 8.7* 10/23/07104 HB 8.9* 10/22/07244 HCT 23.1* 10/24/07 0001 HCT 25.5* 10/23/07 0105 HCT 26.0* 10/22/07244 PLT 176 10/24/07 0001 PLT 204 10/23/07 0105 PLT 190 10/22/07244 Central Line: location: left subclavian triple lumen Arterial Line: location: left radial day: 2 Up to Last 5 culture results: CULTURE RESULT (no units) Date Value 10/22/07 CSF Culture Source...............: Cerebrospinal Fluid RLB Gram Stai n...........: Gram smear performed at [facility]. Culture: Preliminary Report: No growt h after 1 day. Culture examined daily. Report will be updated if growth occurs. Further report to follow. 10/22/07 Blood Culture Source..................: Central Line Blood Result. .................. Preliminary: No growth at 1 day. 10/19/07 CSF Culture Source...............: Ventricular Fluid Cerebrospinal Flu id RLB Gram Stain...........: Gram smear performed at [facility]. Culture: Final Repo rt: No growth after 3 days. Final Report Endocrine: 122 Musculoskeletal: symetrical trace edema Skin: normal Current Medications: Current Inpatient Medications Medication Dose Route Frequency acetaminophen (aka TYLENOL) liquid 325-650 mg 325-650 mg Feeding tube EVERY 4 HOURS NEEDED acetaminophen (aka TYLENOL) suppository 650 mg 650 mg Rectal EVERY 6 HOURS NEEDED albuterol (aka PROVENTIL, VENTOLIN) 90 mcg/Actuation inhaler 4 Puff 4 Puff Inhalation E VERY 4 HOURS NEEDED albuterol-ipratropium (aka COMBIVENT) inhaler 4 Puff 4 Puff Inhalation EVERY 4 HOURS albuterol-ipratropium (aka DUO-NEB) nebulizer solution bisacodyl (aka DULCOLAX) suppository 10 mg 10 mg Rectal TWICE DAILY NEEDED docusate sodium liquid 50 mg 50 mg Feeding tube TWICE DAILY fentanyl (aka SUBLIMAZE) injection 25-75 mcg 25-75 mcg Intravenous EVERY 2 HOURS NEE DED fentanyl in NaCl 0.9% (aka SUBLIMAZE) IV infusion 10-150 mcg/hr 10-150 mcg/hr Intraveno us CONTINUOUS furosemide (aka LASIX) injection 20 mg 20 mg Intravenous ONCE hydrocortisone sodium succinate (aka SOLUCORTEF) injection 100 mg 100 mg Intravenous TH REE TIMES DAILY labetalol (aka NORMODYNE,TRANDATE) injection 10-40 mg 10-40 mg Intravenous EVERY 10 MIN UTES NEEDED magnesium hydroxide (aka MILK OF MAGNESIA) suspension 30 mL 30 mL Oral EVERY 4 HOURS NEEDED metoclopramide (aka REGLAN) injection 5-10 mg 5-10 mg Intravenous EVERY 4 HOURS NEED ED NaCl 0.9%-KCl 20 mEq IV infusion Intravenous CONTINUOUS niCARdipine 0.2 mg/mL in NaCl 0.9% IV infusion 5-15 mg/hr Intravenous CONTINUOUS nimodipine (aka NIMOTOP) capsule 60 mg 60 mg Oral EVERY 4 HOURS norepinephrine 32 mcg/mL in NaCl 0.9% IV infusion (Pyxis) 0.05-3 mcg/kg/min Intravenou s CONTINUOUS ondansetron (aka ZOFRAN) injection 4 mg 4 mg Intravenous EVERY 12 HOURS NEEDED oxycodone immediate release (aka ROXICODONE) tablet 5-15 mg 5-15 mg Oral EVERY 3 HOURS NEEDED piperacillin-tazobactam (aka ZOSYN) IV 4.5 g 4.5 g Intravenous EVERY 6 HOURS potassium chloride (aka KAOCHLOR) liquid 10-40 mEq 10-40 mEq Oral NEEDED potassium chloride IV 10 mEq 10 mEq Intravenous NEEDED potassium chloride IV 20 mEq 20 mEq Intravenous NEEDED pravastatin (aka PRAVACHOL) tablet 40 mg 40 mg Oral AT BEDTIME promethazine (aka PHENERGAN) injection 6.25-12.5 mg 6.25-12.5 mg Intravenous EVERY 4 HO URS NEEDED propofol (aka DIPRIVAN) injection 28.4-3,408 mcg/min 0.5-60 mcg/kg/min Intravenous CONT INUOUS ranitidine (aka ZANTAC) IV 50 mg 50 mg Intravenous EVERY 8 HOURS sennosides (aka SENOKOT) liquid 8.8 mg 5 mL Feeding tube TWICE DAILY sorbitol liquid 30-60 mL 30-60 mL Oral EVERY 2 HOURS NEEDED vancomycin (aka VANCOCIN) IV (ADD-vantage) 1,000 mg 1 g Intravenous EVERY 8 HOURS PLAN: Neurological: -SAH, cont protocol Analgesia: prn Sedation: na HEENT: incision care Cardiovascular: HTN permissive for CPP Hemodynamic goals: MAP>70, SBP<200 Respiratory: -copd- cont nebs, tolerate slightly higher Co2 d/t chronic retention -stidor- cont racepi prn for strif=rancho, currently good oxygenation -no asp pna- likely effusion GI: -difficult DHT placement- currently not feeding d/t the tube pointing cephalad Feeding: TF pending Ulcer Prophylaxis: Ranitidine, change to PPI d/t hx of GERD / Renal: 24-hour I/O goal: neg 500-1000 ID/HO: af, leukocytosis ? Infection v. Demargination from hydrocort cx neg, d/c vanco Thromboprophylaxis: SCDs Endocrine: hyperglycemia, Glycemic control: insulin sliding -suspected adrenal insufficency- taper steriods Musculoskeletal / Skin: Head of Bed: Head of Bed >30 degrees, Activity: bed rest and OOB t o chair Time: 57 minutes in care and management of this patient. TAYLOR GRIGGS uGalileo rao - 10/24/2007 5 :04 AM PDT NEUROSURGERY PROGRESS NOTE Author: GALILEO LANDEROS MD Attending Physician: Magnolia Diego HPI/Interval Update: No acute overnight. Patient was placed on norepi at 0.3mcg/kg/min. Physical Exam: BP 107/81 | Pulse 62 | Temp 37.4 C (99.3 F) | Resp 15 | Ht 1.676 m (5' 6") | Wt 56.8 kg (125 lbs 3.5 oz) | SpO2 95% Systolic (24hrs), Av mmHg, Min:107 mmHg, Max:169 mmHg Diastolic (24hrs), Av mmHg, Min:45 mmHg, Max:83 mmHg Pulse Av.2 Min: 48 Max: 93 Temp Av.3 C (99.1 F) Min: 36.4 C (97.5 F) Max: 38.1 C (100.6 F) Resp Av.1 Min: 0 Max: 20 SpO2 Av.5 % Min: 88 % Max: 100 % Intake/Output Summary (Last 24 hours) at 10/23 0504 Last data filed at 10/23 0400 Gross per 24 hour Intake 3350.4 ml Output 2334 ml Net 1016.4 ml Lab Results Basename Value Date/Time NA 153* 10/24/07 0001 K 3.5 10/24/072058 CR 0.79 10/24/072058 HCT 23.1* 10/24/072058 WBC 14.3* 10/24/072058 PLT 176 10/24/072058 INR Not Recd 10/18/07 0501 ] CULTURE RESULT (no units) Date Value 10/22/07 CSF Culture Source...............: Cerebrospinal Fluid RLB Gram Stai n...........: Gram smear performed at [facility]. Culture: Preliminary Report: No growt h after 1 day. Culture examined daily. Report will be updated if growth occurs. Further report to follow. Up to Last 5 ABGs in 72 hours: Recent Labs Basename 10/23/07 0116 10/22/07 1834 10/22/07 0742 10/22/07 0130 10/21/07 2200 PH 7.45* 7.38 7.44 7.49* 7.51* PCO2 40 47* 37 31* 31* PO2 113* 58* 111* 86 61* HCO3 27 27 25 23 24 [id number] 28 28 26 24 25 [id number] 98.7* 82.5* 98.5* 97.1 92.0 [id number] -- -- -- -- -- FIO2 NG 100 100 NG NG Last Ventilator Settings: Mode: Ventilator Mode: SIMV / VC + PS (10/24/07 4:11 AM) FiO2: FIO2 (%): 35 fraction of O2 (10/24/07 4:11 AM) Rate Set: Set Rate: 14 bpm (10/24/07 4:11 AM) Rate Total: Total Rate: 14 bpm (10/24/07 4:11 AM) TV: VT SET: 500 ml (10/24/07 4:11 AM) PS Set: PSV: 10 cm H2O (10/24/07 4:11 AM) PEEP: PEEP: 8 cm H2O (10/24/07 4:11 AM) Last ICP Mean: 10 mmHg (10/24/07 4:00 AM) CPP (cerebral perfusion pressure): 70 mmHg (10/24/07 4:00 AM) 24 Hour ICP Mean Av.7 mmHg Min: -9 mmHg Max: 16 mmHgCPP (cerebral perfusion pressure) Av.8 mmHg Min: 56 mmHg Max: 166 mmHg Intubated, sedated Opens eyes to voices, tracks. PERRLA, face sym. Follows commands in all 4s. EVD at 15, output was 193. Assessment and Plan: 57F s/p aSAH, PBD 6, s/p crani and clipping for AComm Art. Aneurysm, POD 6. 1. Will attempt to extubate today. 2. Will decrease sedation after extubation. 3. Continue SAH protocol. José Miguel Carranza - 10/23/2007 3:27 PM PDTFormatting of this note might be different from the origi nal. NEURO-ICU ATTENDING AUTHOR: JOSÉ MIGUEL DAS M.D. I have examined and reviewed this patient with the house staff and PA, and agree with Dr. Luis gonzalez's documentation. Mrs. 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 She is at a significant risk for vasospasm and ischemic strokes. She is arousable and able to follow simple commands. BP 148/83 | Pulse 66 | Temp 38.1 C (100.6 F) | Resp 18 | Ht 1.676 m (5' 6") | Wt 56.8 k g (125 lbs 3.5 oz) | SpO2 96% Systolic (24hrs), Av mmHg, Min:117 mmHg, Max:169 mmHg Diastolic (24hrs), Av mmHg, Min:60 mmHg, Max:83 mmHg Pulse Av.3 Min: 48 Max: 93 Temp Av.9 C (100.3 F) Min: 36.4 C (97.5 F) Max: 39 C (102.2 F) Resp Av.3 Min: 14 Max: 20 SpO2 Av.2 % Min: 81 % Max: 100 % Last Ventilator Settings: Ventilator Mode: SIMV / VC + PS (10/23/07 9:45 AM) FIO2 (%): 40 fraction of O2 (10/23/07 11:34 AM) Set Rate: 14 bpm (10/23/07 9:45 AM) Total Rate: 14 bpm (10/23/07 9:45 AM) VT SET: 500 ml (10/23/07 9:45 AM) PSV: 10 cm H2O (10/23/07 9:45 AM) PEEP: 8 cm H2O (10/23/07 9:45 AM) Intake/Output Summary (Last 24 hours) at 10/22 1219 Last data filed at 10/22 1200 Gross per 24 hour Intake 3364 ml Output 5204 ml Net -1840 ml Lab Results Basename Value Date/Time NA 151* 10/23/07 1012 K Combined. 10/23/07 1012 CR 0.91 10/23/07 0105 HCT 25.5* 10/23/07 0105 WBC 14.0* 10/23/07 0105 PLT 204 10/23/07 0105 INR Not Recd 10/18/07 0501 ] Up to Last 5 ABGs in 72 hours: Recent Labs Basename 10/23/07 0116 10/22/07 1834 10/22/07 0742 10/22/07 0130 10/21/07 2200 PH 7.45* 7.38 7.44 7.49* 7.51* PCO2 40 47* 37 31* 31* PO2 113* 58* 111* 86 61* HCO3 27 27 25 23 24 [id number] 28 28 26 24 25 [id number] 98.7* 82.5* 98.5* 97.1 92.0 [id number] -- -- -- -- -- FIO2 NG 100 100 NG NG Plan: 1) Continue neurochecks; Nimodipine; Follow TCDs. 2) Continue cardiopulmonary monitoring. Minimize diuresis. 3) Permissive hypertension. 4) DVt/GI prophylaxis. 5) Glycemic control and nutrtional support. I have spent 48 min of critical care time at the bedside. José Miguel Das M.D. ehran Cheyenne ni - 10/23/2007 12:19 PM PDTFormatting of this note might be different from the origi nal. NEUROSURGERY PROGRESS NOTE Author: CHEYENNE DONNELLY Attending Physician: Magnolia Diego HPI/Interval Update: Continued need for pulmonary support Physical Exam: BP 148/83 | Pulse 66 | Temp 38.1 C (100.6 F) | Resp 18 | Ht 1.676 m (5' 6") | Wt 56.8 k g (125 lbs 3.5 oz) | SpO2 96% Systolic (24hrs), Av mmHg, Min:117 mmHg, Max:169 mmHg Diastolic (24hrs), Av mmHg, Min:60 mmHg, Max:83 mmHg Pulse Av.3 Min: 48 Max: 93 Temp Av.9 C (100.3 F) Min: 36.4 C (97.5 F) Max: 39 C (102.2 F) Resp Av.3 Min: 14 Max: 20 SpO2 Av.2 % Min: 81 % Max: 100 % Last Ventilator Settings: Ventilator Mode: SIMV / VC + PS (10/23/07 9:45 AM) FIO2 (%): 40 fraction of O2 (10/23/07 11:34 AM) Set Rate: 14 bpm (10/23/07 9:45 AM) Total Rate: 14 bpm (10/23/07 9:45 AM) VT SET: 500 ml (10/23/07 9:45 AM) PSV: 10 cm H2O (10/23/07 9:45 AM) PEEP: 8 cm H2O (10/23/07 9:45 AM) Intake/Output Summary (Last 24 hours) at 10/22 1219 Last data filed at 10/22 1200 Gross per 24 hour Intake 3364 ml Output 5204 ml Net -1840 ml Intubated Opens eyes to voice Follows commands in all extremities Incision approximated C/D/I EVD in place Lab Results Basename Value Date/Time NA 151* 10/23/07 1012 K Combined. 9/1/08 1012 CR 0.91 10/23/07 0105 HCT 25.5* 10/23/07 0105 WBC 14.0* 10/23/07 0105 PLT 204 10/23/07 0105 INR Not Recd 10/18/07 0501 ] CULTURE RESULT (no units) Date Value 10/22/07 CSF Culture Source...............: Cerebrospinal Fluid RLB Gram Stai n...........: Gram smear performed at [facility]. Culture: Preliminary Report: No growt h after 1 day. Culture examined daily. Report will be updated if growth occurs. Further report to follow. Up to Last 5 ABGs in 72 hours: Recent Labs Basename 10/23/07 0116 10/22/07 1834 10/22/07 0742 10/22/07 0130 10/21/07 2200 PH 7.45* 7.38 7.44 7.49* 7.51* PCO2 40 47* 37 31* 31* PO2 113* 58* 111* 86 61* HCO3 27 27 25 23 24 [id number] 28 28 26 24 25 [id number] 98.7* 82.5* 98.5* 97.1 92.0 [id number] -- -- -- -- -- FIO2 NG 100 100 NG NG Assessment and Plan: 57F with respiratory failure s/p crani and clipping for AComm Art. Ane urysm -- Follow-up TCD's -- Continue ventilatory support, abx, gentle diuresis Will d/w staff Thea Mcmahon - 10/23/19 08 9:54 AM PDTSpeech Language Pathology- Contact Note: Pt now intubated. Will sign off. P lease re-order AIR SHOVEL OPERATOR for speech and swallowing services once extubated and appropriate. Thank you. THEA LIMA M.A., [facility]-AIR SHOVEL OPERATOR Speech Language Pathologist Pgr: [phone] Humble Mcgrath [employer] - 0 10/23/2007 9:43 AM PDTSBT done, pt quite aggitated at this time. Saxton score was good at 47 but pt appears quite aggitated. Will attempt again later when pt is more relaxed.Reji grant signed by Humble Logan RCP at 10/23/2007 9:45 AM PDTCrystal, May - 10/23/2007 7:37 AM PDT ICU DAILY PROGRESS NOTE Author: TAYLOR GRIGGS Date of Service: 10/23/2007 HPI: 57 y.o. y/o female admitted 10/18/2007 Patient Active Hospital Problem List: No past medical history on file. 24 Hour Events: -started on abx for ? RLL infiltrate, ? aspiration ASSESSMENT: Constitutional: Admit wt: Wt - Scale: 56.8 kg (125 lbs 3.5 oz) (10/18/07 5:00 AM) Neurological: -obeys commands Prop 15 Fent 75 HEENT: EVD and incision care Cardiovascular: RRR Pulse Av.7 Min: 48 Max: 109 Systolic (24hrs), Av mmHg, Min:117 mmHg, Max:169 mmHg Diastolic (24hrs), Av mmHg, Min:60 mmHg, Max:79 mmHg CVP: 13 Respiratory: CTA B, no wheezes Resp Av.7 Min: 15 Max: 39 SpO2 Av.1 % Min: 81 % Max: 100 % Vent Settings: SIMV-V, /8, fio2 60% CXR findings: final PENDING, however, ? Pleural effusion R>L, doesn't appear to have conso lidation ABGs: Recent Labs Basename 10/23/07 0116 10/22/07 1834 10/22/07 0742 10/22/07 0130 10/21/07 2200 FIO2 NG 100 100 NG NG PH 7.45* 7.38 7.44 7.49* 7.51* PCO2 40 47* 37 31* 31* PO2 113* 58* 111* 86 61* HCO3 27 27 25 23 24 [id number] 28 28 26 24 25 [id number] 98.7* 82.5* 98.5* 97.1 92.0 GI: stooling, abd soft, no TTP, +BT / Renal: benavides Intake/Output Summary (Last 24 hours) at 10/22 0738 Last data filed at 10/22 0700 Gross per 24 hour Intake 4326.8 ml Output 4068 ml Net 258.8 ml IV Fluids:3% 50/hr Lab Results Basename Value Date/Time NA 153* 10/23/07 0105 NA 153* 10/22/07 1809 NA 153* 10/22/07 1326 K 3.5 10/23/07 0105 K Combined. 10/22/07 1809 K 3.4 10/22/07 1809 CL 116* 10/23/07 010 CL 114* 10/22/07 0245 CL 113* 10/21/07 0200 BICARB 27 10/23/07 010 BICARB 26 10/22/07 0245 BICARB 23 10/21/07 0200 BUN 12 10/23/07 0105 BUN 8 10/22/07 024 BUN 7 10/21/07 020 CR 0.91 10/23/07104 CR 0.79 10/22/07244 CR 0.63 10/21/07 020 GLU 137* 10/23/07104 GLU 117* 10/22/07244 GLU 110* 10/21/07 0200 CA 7.4* 10/23/07104 CA 8.3* 10/22/07244 CA 8.0* 10/21/07 020 MG 2.0 10/23/07104 MG 2.2 10/22/07244 MG 1.7* 10/21/07 020 PO4 4.3 10/23/07104 PO4 3.3 10/22/07244 PO4 2.7 10/21/07 020 ALB 2.8* 10/23/07104 ALB 3.3* 10/22/07 0245 ALB 2.6* 10/21/07 0200 ID/HO: Temp (24hrs), Av.4 C (101.1 F), Min:37.6 C (99.7 F), Max:39 C (102.2 F) Lab Results Basename Value Date/Time WBC 14.0* 10/23/07104 WBC 11.1* 10/22/07244 WBC 15.9* 10/21/07 0200 HB 8.7* 10/23/07104 HB 8.9* 10/22/07 024 HB 9.2* 10/21/070 HCT 25.5* 10/23/075 HCT 26.0* 10/22/07244 HCT 26.6* 10/21/07 0200 PLT 204 10/23/07104 PLT 190 10/22/07244 PLT 176 10/21/07199 Arterial Line: location: right radial day: ?, no procedure noted found. Slight erythema at site. Up to Last 5 culture results: CULTURE RESULT (no units) Date Value 10/19/07 CSF Culture Source...............: Ventricular Fluid Cerebrospinal Flu id RLB Gram Stain...........: Gram smear performed at [facility]. Culture: Final Repo rt: No growth after 3 days. Final Report Endocrine: hyperglycemia Musculoskeletal: symetrical Skin: normal Current Medications: Current Inpatient Medications Medication Dose Route Frequency acetaminophen (aka TYLENOL) liquid 325-650 mg 325-650 mg Feeding tube EVERY 4 HOURS NEEDED acetaminophen (aka TYLENOL) suppository 650 mg 650 mg Rectal EVERY 6 HOURS NEEDED albuterol-ipratropium (aka COMBIVENT) inhaler 4 Puff 4 Puff Inhalation EVERY 4 HOURS bisacodyl (aka DULCOLAX) suppository 10 mg 10 mg Rectal TWICE DAILY NEEDED docusate sodium liquid 50 mg 50 mg Feeding tube TWICE DAILY fentanyl (aka SUBLIMAZE) injection 25-75 mcg 25-75 mcg Intravenous EVERY 2 HOURS NEE DED fentanyl in NaCl 0.9% (aka SUBLIMAZE) IV infusion 10-150 mcg/hr 10-150 mcg/hr Intraveno us CONTINUOUS furosemide 1 mg/mL in NaCl 0.9 % IV infusion 1-10 mg/hr Intravenous CONTINUOUS hydrocortisone sodium succinate (aka SOLUCORTEF) injection 100 mg 100 mg Intravenous TH REE TIMES DAILY labetalol (aka NORMODYNE,TRANDATE) injection 10-40 mg 10-40 mg Intravenous EVERY 10 MIN UTES NEEDED magnesium hydroxide (aka MILK OF MAGNESIA) suspension 30 mL 30 mL Oral EVERY 4 HOURS NEEDED metoclopramide (aka REGLAN) injection 5-10 mg 5-10 mg Intravenous EVERY 4 HOURS NEED ED NaCl 0.9%-KCl 20 mEq IV infusion Intravenous CONTINUOUS niCARdipine 0.2 mg/mL in NaCl 0.9% IV infusion 5-15 mg/hr Intravenous CONTINUOUS nimodipine (aka NIMOTOP) capsule 60 mg 60 mg Oral EVERY 4 HOURS ondansetron (aka ZOFRAN) injection 4 mg 4 mg Intravenous EVERY 12 HOURS NEEDED oxycodone immediate release (aka ROXICODONE) tablet 5-15 mg 5-15 mg Oral EVERY 3 HOURS NEEDED PHENylephrine 0.2 mg/mL in NaCl 0.9% IV infusion (Pyxis) 0.01-3 mcg/kg/min Intravenous CONTINUOUS piperacillin-tazobactam (aka ZOSYN) IV 4.5 g 4.5 g Intravenous EVERY 6 HOURS potassium chloride (aka KAOCHLOR) liquid 10-40 mEq 10-40 mEq Oral NEEDED potassium chloride IV 10 mEq 10 mEq Intravenous NEEDED potassium chloride IV 20 mEq 20 mEq Intravenous NEEDED pravastatin (aka PRAVACHOL) tablet 40 mg 40 mg Oral AT BEDTIME promethazine (aka PHENERGAN) injection 6.25-12.5 mg 6.25-12.5 mg Intravenous EVERY 4 HO URS NEEDED propofol (aka DIPRIVAN) injection 28.4-3,408 mcg/min 0.5-60 mcg/kg/min Intravenous CONT INUOUS ranitidine (aka ZANTAC) IV 50 mg 50 mg Intravenous EVERY 8 HOURS sennosides (aka SENOKOT) liquid 8.8 mg 5 mL Feeding tube TWICE DAILY sodium acetate-chloride (50:50) 3% IV infusion (hypertonic) 1000 mL Intravenous CONTIN UOUS sorbitol liquid 30-60 mL 30-60 mL Oral EVERY 2 HOURS NEEDED vancomycin (aka VANCOCIN) IV (ADD-vantage) 1,000 mg 1 g Intravenous EVERY 12 HOURS PLAN: Neurological: -evd at 15 -Analgesia: fent gtt -Sedation: To maintain ventinlatioin HEENT: oral care Cardiovascular: -Hemodynamic goals: SBP >140<200, Phenylephrine causing some bradycardia, consider change t o levofed. Respiratory: -COPD- attempt wean from vent, decrease Fio2, goal spo2 90-94% -pna v. Pleaural effusion- HAP v/ apiration - cont vanco zosyn, check C dif GI: -stooling, Feeding: Tube Feeds, Ulcer Prophylaxis: Ranitidine / Renal: 24-hour I/O goal: neg 500 d/t pleural effusion though conservative b/c of vasospasm risk. -hyperna- d/c 3% ID/HO: -R [place] site- ? W/ oozing and erythemaa= change line Thromboprophylaxis: SCDs Endocrine: hyperglycemia, Glycemic control: insulin sliding Musculoskeletal / Skin: Head of Bed: Head of Bed >30 degrees, Activity: bed rest Time: 47 minutes in care and management of this patient. TAYLOR GRIGGS Candida Fields - 2:44 PM PDTNEUROSCIENCE ICU ATTENDING INPATIENT PROGRESS NOTE Critical Care attending physician: CANDIDA PUCKETT MD Referring Attending Physician: Magnolia Diego I saw and evaluated the patient at the bedside together with Dr Aguilar. I reviewed his find ings, all data and the the recent imaging available. I agree with the assessment and plan a s described in the residents note. I discussed the care plan with the primary team. Reason for ICU admission: ICU-D #3, POD #2 ; s/p SAH (H&H Gr 4; Rodrigues Gr 3) ; s/p A-com a neurysm clipping ; COPD (2 packs/day x 40y) Last 24 hours: increased cough, fever yd pm , CXR RLL infiltrate ; started vanc and zosyn ; overnight gradually more tachypneic (RR 40), respiratory distress + hypoxemia . Was intub ated at 3 am w/o problems ; Neuro w/o sedation this morning: follows commands ; non-focal, good strength FORBES, PEERL ; TCDs up the R (profound increase in velocities & ratio indicating cerebr vasospasm); mildly elevated on L (ns) ; Spells with increased urine output last night (JUNIOR RECRUITER ?) ; SG urine = normal ; Na 146 ; on 3% 75/hr ; I/O neg 300ml/24hr, 5.6 L positive for hospital stay ; EVD 10-15 ml/hr (350/24hr) @ 10 cm DVT scan negative Current ICU problem list: SAH, cerebral vasospasm: Neuro checks q1, TDS daily, JUNIOR RECRUITER watch ; q6h Na/K, cont propofo l & fentanyl drip ; sedation vac x2/ day (6am/6pm) ; per neurosurg EVD increased to 15cm residential monitor ; SBP: 120-150, HR <100/min (aspiration) pneumonia: keep on vent, manitain SpO2 > 95%, wean down, (curr @ FiO2 0.7) ; R T eval & treat (e.g. Albuterol), ABG 12hr , CXR in the am Mild & careful diuresis: I/O 500 to max. 1000ml neg/24hr via Lasix infusion, Na 145-155, r outine labs in the am Cont vanc & zocyn, vanco trough this pm, hydrocortison 100 q8 hr for 48hr (rel adren insuff ) Start TF (Replete) with 40 ml/hr via DHT, d/c OGT ISS CCT: 55 minutes Candida Puckett Vinay Bolaños - 10/22/2007 6:51 AM PDT NEUROSURGERY PROGRESS NOTE Author: VINAY BOLAÑOS MD Attending Physician: Magnolia Diego HPI/Interval Update: No acute events. Physical Exam: BP 106/57 | Pulse 70 | Temp 38.7 C (101.7 F) | Resp 18 | Ht 1.676 m (5' 6") | Wt 56.8 k g (125 lbs 3.5 oz) | SpO2 97% Systolic (24hrs), Av mmHg, Min:105 mmHg, Max:173 mmHg Diastolic (24hrs), Av mmHg, Min:53 mmHg, Max:88 mmHg Pulse Av.0 Min: 70 Max: 109 Temp Av.2 C (100.8 F) Min: 37.9 C (100.2 F) Max: 38.7 C (101.7 F) Resp Av.8 Min: 17 Max: 39 SpO2 Av.3 % Min: 90 % Max: 99 % Intake/Output Summary (Last 24 hours) at 10/21 06 Last data filed at 10/21 0600 Gross per 24 hour Intake 5717 ml Output 5895 ml Net -178 ml Lab Results Basename Value Date/Time NA 146* 8/31/08 0245 K 3.5 10/22/07244 CR 0.79 10/22/07244 HCT 26.0* 10/22/07244 WBC 11.1* 10/22/07244 PLT 190 10/22/07 024 INR Not Recd 10/18/07 0501 ] CULTURE RESULT (no units) Date Value 10/19/07 CSF Culture Source...............: Ventricular Fluid Cerebrospinal Flu id RLB Gram Stain...........: Gram smear performed at [facility]. Culture: Preliminar y Report: No growth after 1 day. Culture examined daily. Report will be updated if growth occurs. Further report to follow. Up to Last 5 ABGs in 72 hours: Recent Labs Basename 10/22/07 0130 10/21/07 2200 10/21/07 0300 PH 7.49* 7.51* 7.45* PCO2 31* 31* 33 PO2 86 61* 63* HCO3 23 24 23 [id number] 24 25 24 [id number] 97.1 92.0 92.1 [id number] -- -- -- FIO2 NG NG 6L simple mask Last Ventilator Settings: Mode: Ventilator Mode: SIMV / VC + PS (10/22/07 3:10 AM) FiO2: FIO2 (%): 100 fraction of O2 (10/22/07 6:00 AM) Rate Set: Set Rate: 14 bpm (10/22/07 3:10 AM) Rate Total: Total Rate: 14 bpm (10/22/07 3:10 AM) TV: VT SET: 0.5 ml (10/22/07 3:10 AM) PS Set: PSV: 10 cm H2O (10/22/07 3:10 AM) PEEP: PEEP: 5 cm H2O (10/22/07 3:10 AM) Last ICP Mean: 11 mmHg (10/22/07 6:00 AM) CPP (cerebral perfusion pressure): 63 mmHg (10/22/07 6:00 AM) 24 Hour ICP Mean Av.2 mmHg Min: -9 mmHg Max: 16 mmHgCPP (cerebral perfusion pressure) Av.4 mmHg Min: 56 mmHg Max: 166 mmHg EVD at 10cm, 326cc/24hrs Awake,sedated, intubated PERRL B, EOMI, face symmetrical, Palate equal, tongue ML, V1-V3 intact. Motor: no drift, full strength 5/5 in all extremities, Sensation intact to light touch in all ext Assessment and Plan: 57 yo F SAH, HH4,F4 PBD 5, PCD 4. Has been doing well neurologically, TCDs stable 109,133. - Intubated last night for respiratory distress 2/2 PNA from aspiration at OSH. Currently o n vanco/Zosyn. Febrile. - Neurologically is doing well. Neuro intact. Follows in all 4. EVD draining well. Can increase EVD to 15 today. CSF sent today - Cards: no issues - renal: no issues. Humble Mcgrath RCP - 10:54 AM PDTPt unable to follow directions to get a good spirometry reading. Her b est effort was: FEV1 1.02 (34% predicted) and FVC 1.53 (41% predicted) Thea Mcmahon - 10/21/2007 10:12 AM PDT Speech Language Pathology Progress Note S: "Yeah, jenniferk." when asked, Would you like to try some breakfast? O: Pt seen for dysphagia therapy. According chart review and RN, pt had a difficult night requiring increased O2 overnight. RN reported "swallowing fine" and chest xray not suggest chon of aspiration. Pt currently on 6L O2 via simple face mask with baseline O2 sat at 96%. Baseline dry cough noted. Pt repositioned upright in bed. She accepted 4 oz of thin liqui d via single straw sip and 2 oz of puree (oatmeal from [facility] soft mealtray). + oral containm ent and adequate oral prep despite obvious fatigue. + timely swallow response. - cough, - c corbin, - change in voice, - aud pharyngeal pooling, - throat clearing. O2 sats remained betw een 93-96% (with AIR SHOVEL OPERATOR replacing O2 mask between PO trials). No further trials given d/t pt f atigue. Left upright in bed with O2 mask in place and RN aware at end of session. Education: SEE MULTIDISCIPLINARY EDUCATIONAL RECORD FOR DETAILED PLAN; focus this session to patient includes aspiration precautions. Education Outcome: Patient not able to verbali ze comprehension at this time. A: Impression: Despite recent increase in O2 needs, pt continues to demo a safe and functi onal swallow for purees and thin liquids via straw. No overt ss of aspiration exhibited dur ing today's session. Quality of participation: good Goal progress: progressing slowly Goals see below: 1. Tolerate least restrictive diet without overt ss of aspiration. 2. Complete cognitive, speech, language eval when appropriate. (Not addressed 10/21/07) P: Recommendations: 1. Continue [facility] soft diet with thin liquids. - upright positioning and 1:1 supervision and assistance with all POs please 2. Will f/u 5x/week for dysphagia therapy services as well as completition of cognitive, sp eech, lang eval as appropriate. (time in: 1000, time out: 1025) THEA LIMA M.A., CCC-AIR SHOVEL OPERATOR Speech Language Pathologist Pgr: [phone] THEA LIMA CCC-S/LP 10/21/2007 raCandida tineo 9:44 AM PDTNEUROSCIENCE ICU ATTENDING INPATIENT PROGRESS NOTE Critical Care attending physician: CANDIDA PUCKETT MD Referring Attending Physician: Magnolia Diego I saw and evaluated the patient at the bedside together with Dr Trivedi. I reviewed her fin dings, all data and the the recent imaging available. I agree with the assessment and plan as described in the residents note. I discussed the care plan with the primary team. Reason for ICU admission: ICU-D #2, POD #1 ; s/p SAH (H&H Gr 4; Rodrigues Gr 3) ; s/p A-com a neurysm clipping ; Last 24 hours: became hypoxemic, (severe COPD) ABG pO2 63, resp alcalosis; was on face mask on 8L at times ; CXR w/o abnormalities ; oriented x3, no focal deficit, 1500ml+/24hr, EVD 1 75ml/24hr @ 10 cm, rest unremarkable, had a BM, nausea resolved Current ICU problem list: Neuro checks, TDS daily, JUNIOR RECRUITER watch residential monitor [place] SpO2 > 95%, O2 nc, RT eval & treat (e.g. Albuterol, spirometry), ABG q day I/O even to -500, start albumine, Na 145-155 Replace art line ADAT, no free water DVT scan CCT: 41 minutes Candida Puckett Gertrude Granados - 10/21/2007 4:26 AM PDTFormatting of this note might be different from the or iginal. ICU DAILY PROGRESS NOTE Author: GERTRUDE GRANADOS MD ICU day # 4 POD# 2 HPI: 57 y.o. is a y/o female admitted 10/18/2007 4:14 AM. Current inpatient problem list includes: Patient Active Hospital Problem List: SAH ACOM Aneurysm 24 Hour Events: some hypoxia to low 90's overnight. DuoNed tx x 1 with improvement. On face mask at 6L SUBJECTIVE: some mild SOB on fask mask 6L, otherwise no complaints ASSESSMENT: Last Vitals: BP 144/70 | Pulse 76 | Temp 37.5 C (99.5 F) | Resp 28 | Ht 1.676 m (5' 6") | Wt 56.8 kg (125 lbs 3.5 oz) | SpO2 96% 24 Hour Vital Min/Max: Systolic (24hrs), Av mmHg, Min:95 mmHg, Max:155 mmHg Diastolic (24hrs), Av mmHg, Min:51 mmHg, Max:85 mmHg Pulse Av.2 Min: 67 Max: 98 Temp Av C (98.6 F) Min: 36.6 C (97.9 F) Max: 37.5 C (99.5 F) Resp Av.6 Min: 16 Max: 28 SpO2 Av.6 % Min: 90 % Max: 99 % Intake/Output Summary (Last 24 hours) at 10/20 0427 Last data filed at 10/20 0300 Gross per 24 hour Intake 3780 ml Output 2231 ml Net 1549 ml Cumulative (hospital stay) I/O: +3.2 ICP: 4-11 EVD: 274 @10cm Neurological: Mental Status: General: Awake, alert and oriented to person, place and time Concentration and attention span: Normal Language: Fluent and articulate without evidence of aphasia or dysarthria Cranial Nerves: 2-12 intact Motor: 5/5 in all ext HEENT: NCAT Cardiovascular: RRR, no m/r/g Respiratory: CTA B, no w/r/r GI: Soft, NT/ND NABS / Renal: ID/HO: Central Line: location: L SC day: 3 Arterial Line: location: L radial day: 3 EVD day 4 Endocrine: CBG range: 119-145 Musculoskeletal: Extremities: No c/c/e Pulses: Good distal pulses, warm and well perfused Skin: No rashes or significant breakdown Recent Labs Basename 10/21/07 0300 10/19/07 0148 10/18/07 0820 PH 7.45* 7.36* 7.34* PCO2 33 45* 43 PO2 63* 143* 207* HCO3 23 25 23 [id number] 24 26 24 S9UGDDSE 92.1 99.0* 99.3* U3LLLLXEM -- -- -- FIO2 6L simple mask .6 80 Chemistries Last 96 Hours (or 3 results): Recent Labs Basename 10/21/07 0200 10/20/07 2000 10/20/07 1145 10/20/07 0613 10/20/07 0100 10/19/07 0145 10/18 0058 10/18/07 0501 10/18/07 0450 NA 141 144* 147* 147* -- -- -- -- -- K 4.1 Combined.|3.5 Combined.|3.5 Combined.|4.0 -- -- -- -- -- CL 113* -- -- -- 114* 116* -- Not Recd|Not Recd -- BICARB 23 -- -- -- 27 24 -- Not Recd|Not Recd -- BUN 7 -- -- -- 9 8 -- Not Recd|Not Recd -- CR 0.63 -- -- -- 0.57* 0.75 -- Not Recd|Not Recd -- CA 8.0* -- -- -- 7.9* 8.1* -- Not Recd|Not Recd -- MG 1.7* -- -- -- 1.9 1.9 Combined. -- -- PO4 2.7 -- -- -- 3.0 3.4 -- -- -- AST -- -- -- -- -- -- -- Not Recd 41 ALT -- -- -- -- -- -- -- Not Recd 25 TBILI -- -- -- -- -- -- -- Not Recd 1.2 AP -- -- -- -- -- -- -- Not Recd 102* ALB 2.6* -- -- -- 2.5* 2.5* -- Not Recd -- TP -- -- -- -- -- -- -- Not Recd 7.4 CBC with diff last 96 hours (or 3 results) Recent Labs Basename 10/21/07 0200 10/20/07 0100 10/19/07 0145 10/18/07 0451 WBC 15.9* 18.0* 15.2* 29.6* HB 9.2* 9.4* 10.6* 15.3 HCT 26.6* 27.6* 30.7* 44.3 PLT 176 186 223 340 NEUTROPERC -- -- 91* -- BANDPCT -- -- -- -- LYMPHPERC -- -- 7* -- MONOPERC -- -- 2 -- BASOPERC -- -- 0 -- EOSPERC -- -- 0* -- Lab Results Lab Test Name Results Date/Time TBILI Not Recd 10/18/07 AP Not Recd 10/18/07 TP Not Recd 10/18/07 ALB 2.6 10/21/07 AST Not Recd 10/18/07 ALT Not Recd 10/18/07 Recent Labs Basename 10/18/07 0501 10/18/07 0450 INR Not Recd 0.98 No results found for this basename: PHENYTOIN:4 in the last 72 hours CULTURE RESULT (no units) Date Value 10/19/07 CSF Culture Source...............: Ventricular Fluid Cerebrospinal Flu id RLB Gram Stain...........: Gram smear performed at [facility]. Culture: Preliminar y Report: No growth after 1 day. Culture examined daily. Report will be updated if growth occurs. Further report to follow. INFUSIONS: IV Fluids: 100 hr Current Medications: Current Inpatient Medications Medication Dose Route Frequency acetaminophen (aka TYLENOL) suppository 650 mg 650 mg Rectal EVERY 6 HOURS NEEDED acetaminophen (aka TYLENOL) tablet 325-650 mg 325-650 mg Oral EVERY 4 HOURS NEEDED albuterol 0.083% (aka PROVENTIL,VENTOLIN) 2.5 mg /3 mL (0.083 %) nebulizer solution albuterol-ipratropium (aka DUO-NEB) nebulizer solution 3 mL 3 mL Inhalation EVERY 4 HILARY RS NEEDED albuterol-ipratropium (aka DUO-NEB) nebulizer solution 3 mL 3 mL Inhalation ONCE bisacodyl (aka DULCOLAX) suppository 10 mg 10 mg Rectal TWICE DAILY NEEDED FENtanyl (aka SUBLIMAZE) bolus from continuous infusion 50 mcg 50 mcg Intravenous EVERY 2 HOURS NEEDED fentanyl (aka SUBLIMAZE) injection 50-100 mcg 50-100 mcg Intravenous EVERY 1 HOUR NE EDED fentanyl in NaCl 0.9% (aka SUBLIMAZE) IV infusion 1-75 mcg/hr 1-75 mcg/hr Intravenous C ONTINUOUS labetalol (aka NORMODYNE,TRANDATE) injection 10-40 mg 10-40 mg Intravenous EVERY 10 MIN UTES NEEDED magnesium hydroxide (aka MILK OF MAGNESIA) suspension 30 mL 30 mL Oral EVERY 4 HOURS NEEDED metoclopramide (aka REGLAN) injection 5-10 mg 5-10 mg Intravenous EVERY 4 HOURS NEED ED NaCl 0.9%-KCl 20 mEq IV infusion Intravenous CONTINUOUS niCARdipine 0.2 mg/mL in NaCl 0.9% IV infusion 5-15 mg/hr Intravenous CONTINUOUS nimodipine (aka NIMOTOP) capsule 60 mg 60 mg Oral EVERY 4 HOURS ondansetron (aka ZOFRAN) injection 4 mg 4 mg Intravenous EVERY 12 HOURS NEEDED oxycodone immediate release (aka ROXICODONE) tablet 5-15 mg 5-15 mg Oral EVERY 3 HOURS NEEDED PHENylephrine 0.2 mg/mL in NaCl 0.9% IV infusion (Pyxis) 0.01-3 mcg/kg/min Intravenous CONTINUOUS potassium chloride (aka KAOCHLOR) liquid 10-40 mEq 10-40 mEq Oral NEEDED potassium chloride IV 10 mEq 10 mEq Intravenous NEEDED potassium chloride IV 20 mEq 20 mEq Intravenous NEEDED pravastatin (aka PRAVACHOL) tablet 40 mg 40 mg Oral AT BEDTIME promethazine (aka PHENERGAN) injection 6.25-12.5 mg 6.25-12.5 mg Intravenous EVERY 4 HO URS NEEDED propofol (aka DIPRIVAN) injection 284-2,840 mcg/min 5-50 mcg/kg/min Intravenous CONTINU OUS ranitidine (aka ZANTAC) IV 50 mg 50 mg Intravenous EVERY 8 HOURS senna-docusate (aka SENOKOT S) 8.6-50 mg 1 Tab 1 Tab Oral TWICE DAILY sorbitol liquid 30-60 mL 30-60 mL Oral EVERY 2 HOURS NEEDED Imaging: CXR--atelectasis, no significant abnormalities PLAN: Neurological: Stable exam, awake, alert EVD--draining well at 10cm No evidence of DI with Na 141 TCD's elevated yesterday, still pending this morning. Concerning for vasospasm development. Increase sodium goal 145-155. Tricky balance between keeping volume up and volume overload from resp standpoint. Continue to monitor exam HEENT: No active issues. Cardiovascular: Stable BP, day 2 off pressors Respiratory: Some tachypnea, hypoxia overnight with resultant resp alkalosis Stable on fask mask. Repeat ABG this am, and daily ABG RT eval and treat If need be, non-rebreather or even BIPAP available Not a demonstrated CO2 retainer, so goal sats ~95% with COPD hx GI: No active issues. / Renal: 24-hour I/O goal: even to neg 500ml, Na+ goal: 145-155, ID/HO: improved leukocytosis Endocrine: No active issues. Musculoskeletal / Skin: No active issues. Routine decubitus ulcer prevention. Routine ICU Care: Lines: [place], CVC Sodium goal: 145-155 Feeding: soft mech Analgesia: prn Sedation: none Thromboprophylaxis: scd Head of bed: elevated Ulcer prophylaxis: h2 mukul Disposition: continue ICU care This patient has been staffed with Dr. Puckett, attending physician, who agrees with the above assessment and plan. GERTRUDE GRANADOS MD Thea Mcmahon 10:35 AM Stephanie Dysphagia Evaluation See record for current Speech Language orders, activity orders and precautions. Admitting Diagnosis: subarachnoid hemorrhage 57 y/o female with two week h/o headache accociated with L ear infection presented to an [facility] 10/17/07 and found to have a SAH. Transferred to [facility] for care. Now s/p A-com aneurysm c lipping with EVD. Pt extubated 10/19/07. Problem List: There is no problem list on file for this patient. No diagnosis found. No past medical history on file. 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 Natural lower dentition in fair condition. Hearing: WFL Vision: eyeglasses See documentation flowsheet for vitals and pain assessment/response. Cognitive Screen Level of alertness: verbalizes Orientation: Person and Time; for PLACE answered "[facility]" but unable to provide correct hospital name. "I don't know." for REASON Quality of responses: Intermittently Appropriate with cues but also confused and persever ative Command following: Followed 6/7 1-step oral motor commands Fci Memory: not formally tested Short Term Memory: not formally tested Judgment /Safety / Awareness: Poor - currently in wrist restraints Attention / Concentration: Fair Vision / Perception: WFL Barriers to learning: Cognitive status Cognitive Observation / comments: Cooperative but confused Respiratory Status: On 4L O2 via nasal cannula. O2 Sat. before trial 96% After trial 95% Observations: Oral Motor: Upper denture plate placed. Natural lower dentition, missing several molars bi laterally. + grossly symmetric. + ROM and + speed of lips and tongue, however mildly reduc ed speed noted. + c/o jaw pain, however demo adequate opening. + baseline dry cough observ ed (likely d/t h/o smoking- RN confirmed). Oral Phase: + oral containment, + adequate but slow oral prep/mastication of soft solids. + mild oral residual with soft solids only. Residual cleared easily with cued liquid washdo wns. Pharyngeal Phase + timely initiation of swallow response with adequate hyolaryngeal excurs ion to palpation. - cough related to POs, - choke, - change in voice, - audible pharyngeal pooling, - throat clearing. TEXTURES: Thin liquids Tolerated without s/s of aspiration Amount 5 oz, Administered by spoon and straw Puree Tolerated without s/s of aspiration Amount 4 oz, Administered by spoon Soft solids Mild oral residual cleared with cued liquid washdown. Tolerated without s/s of aspiration. Amount 3 oz Solids DNT d/t extended mastication with soft solids and c/o jaw pain. Vocal quality: At baseline throughout Speech Intelligibility: 100% Treatment focus this date: Dysphagia eval and education and training re: aspiration precau tions. Ended session: Bed, Oxygen and Nursing Aware Assessment: Impression: Pt tolerated thin liquids by single straw sips, purees, and soft solids without overt ss of aspiration. Pt would benefit from 1:1 assistance with meals d/t AMS. Rehab Potential: Good. Anticipated needs at discharge: TBD Additional precautions identified by therapist: aspiration Goals: 1. Tolerate least restrictive diet without overt ss of aspiration. 2. Complete cognitive, speech, language eval as appropriate. Treatment Plan: dysphagia Frequency: 5 time a week Treatment plan / goals discussed with patient and Horacio Rm. Recommendations: 1. Begin [facility] soft diet with thin liquids. - 1:1 assistance with all meals. - 90 degree upright positioning with all meals - check for oral pocketing/residue after meals and use liquid washdown to clear 2. Will f/u 5x/week for dysphagia tx and initiation of speech, language, cognitive eval as appropriate. (time in: 1015, time out: 1100) THEA LIMA M.A., CCC-AIR SHOVEL OPERATOR Speech Language Pathologist Pgr: [phone] THEA LIMA CCC-S/LP 10/20/2007 Candida Fields 10:14 AM PDTNEUROSCIENCE ICU ATTENDING INPATIENT PROGRESS NOTE Critical Care attending physician: CANDIDA PUCKETT MD Referring Attending Physician: Magnolia Diego I saw and evaluated the patient at the bedside together with Dr Granados. I reviewed his find ings, all data and the the recent imaging available. I agree with the assessment and plan a s described in the residents note. I discussed the care plan with the primary team. Reason for ICU admission: ICU-D #2, POD #1 ; s/p SAH (H&H Gr 4; Rodrigues Gr 3) ; s/p A-com a neurysm clipping ; suspicious for crosscutter involvement ; angio today Last 24 hours: neuro intact, successfully extubated, hemodynamically stable ; EVD: 218ml/2 4hr, anemia, Current ICU problem list: Cont. EVD ; daily TCD ; q1 neuro checks residential monitor ; ECHO: hyperdynam, hypovomaemia, SBP > 120-180 COPD , keep SpO2 = 95%, RT eval and treat normomatremia ; q 6hr Na, K checks, i/o goal + 500/-500 at this level ISS ADAT, PPI CCT: 42 minutes Candida Puckett Gertrude Granados - 10/20/2007 7:54 AM PDTFormatting of this note might be different from the or iginal. ICU DAILY PROGRESS NOTE Author: GERTRUDE GRANADOS MD ICU day # 3 POD# 2 HPI: 57 y.o. is a y/o female admitted 10/18/2007 4:14 AM with SAH 2/2 ACOM aneurysm. Now s /p aneurysm clipping Current inpatient problem list includes: Patient Active Hospital Problem List: SAH ACOM Aneurysm 24 Hour Events: extubated, tolerating well. SUBJECTIVE: no subjective complaints ASSESSMENT: Last Vitals: BP 95/64 | Pulse 81 | Temp 36.7 C (98.1 F) | Resp 18 | Ht 1.676 m (5' 6") | Wt 56.8 kg (125 lbs 3.5 oz) | SpO2 99% 24 Hour Vital Min/Max: Systolic (24hrs), Av mmHg, Min:95 mmHg, Max:147 mmHg Diastolic (24hrs), Av mmHg, Min:51 mmHg, Max:79 mmHg Pulse Av.8 Min: 57 Max: 96 Temp Av.8 C (98.2 F) Min: 36.6 C (97.9 F) Max: 37.2 C (99 F) Resp Av.1 Min: 15 Max: 26 SpO2 Av.2 % Min: 89 % Max: 100 % Intake/Output Summary (Last 24 hours) at 10/19 0754 Last data filed at 10/19 0700 Gross per 24 hour Intake 3493.9 ml Output 2327 ml Net 1166.9 ml Cumulative (hospital stay) I/O: +3.2L ICP: 7-12 EVD: @10cm, draining well Neurological: Mental Status: General: Awake, alert and oriented to person, place and time Concentration and attention span: Normal Language: Fluent and articulate without evidence of aphasia or dysarthria Cranial Nerves: 2-12 intact Motor: 5/5 in all four extremeties HEENT: NCAT Cardiovascular: RRR, no m/r/g Respiratory: CTA B, no w/r/r GI: Soft, NT/ND NABS ID/HO: Central Line: location: L SC day: 2 Arterial Line: location: L radial day: 3 EVD day 3 Endocrine: CBG range: 128-151 Musculoskeletal: Extremities: No c/c/e Pulses: Good distal pulses, warm and well perfused Skin: No rashes or significant breakdown Recent Labs Basename 10/19/07 0148 10/18/07 0820 PH 7.36* 7.34* PCO2 45* 43 PO2 143* 207* HCO3 25 23 [id number] 26 24 [id number] 99.0* 99.3* [id number] -- -- FIO2 .6 80 Chemistries Last 96 Hours (or 3 results): Recent Labs Basename 10/20/07 0613 10/20/07 0100 10/19/07 1753 10/19/07 1154 10/19/07 0145 10/19/07 0058 10/17 0501 10/18/07 0450 NA 147* 146* 146* Combined.|150* -- -- -- -- K Combined.|4.0 3.2* Combined.|3.6 3.6 -- -- -- -- CL -- 114* -- -- 116* -- Not Recd|Not Recd 102 BICARB -- 27 -- -- 24 -- Not Recd|Not Recd 25 BUN -- 9 -- -- 8 -- Not Recd|Not Recd 9 CR -- 0.57* -- -- 0.75 -- Not Recd|Not Recd 0.74 CA -- 7.9* -- -- 8.1* -- Not Recd|Not Recd 8.5* MG -- 1.9 -- -- 1.9 Combined. -- -- PO4 -- 3.0 -- -- 3.4 -- -- -- AST -- -- -- -- -- -- Not Recd 41 ALT -- -- -- -- -- -- Not Recd 25 TBILI -- -- -- -- -- -- Not Recd 1.2 AP -- -- -- -- -- -- Not Recd 102* ALB -- 2.5* -- -- 2.5* -- Not Recd 4.0 TP -- -- -- -- -- -- Not Recd 7.4 CBC with diff last 96 hours (or 3 results) Recent Labs Basename 10/20/07 0100 10/19/07 0145 10/18/07 0451 10/18/07 0450 WBC 18.0* 15.2* 29.6* Dup req HB 9.4* 10.6* 15.3 Dup req HCT 27.6* 30.7* 44.3 Dup req PLT 186 223 340 Dup req NEUTROPERC -- 91* -- -- BANDPCT -- -- -- -- LYMPHPERC -- 7* -- -- MONOPERC -- 2 -- -- BASOPERC -- 0 -- -- EOSPERC -- 0* -- -- Lab Results Lab Test Name Results Date/Time TBILI Not Recd 10/18/07 AP Not Recd 10/18/07 TP Not Recd 10/18/07 ALB 2.5 10/20/07 AST Not Recd 10/18/07 ALT Not Recd 10/18/07 Recent Labs Basename 10/18/07 0501 10/18/07 0450 INR Not Recd 0.98 No results found for this basename: PHENYTOIN:4 in the last 72 hours CULTURE RESULT (no units) Date Value 10/19/07 CSF Culture Source...............: Ventricular Fluid Cerebrospinal Flu id RLB Gram Stain...........: Gram smear performed at [facility]. Culture: Preliminar y Report: No growth after 1 day. Culture examined daily. Report will be updated if growth occurs. Further report to follow. INFUSIONS: IV Fluids: 100 ml/hr Current Medications: Current Inpatient Medications Medication Dose Route Frequency acetaminophen (aka TYLENOL) suppository 650 mg 650 mg Rectal EVERY 6 HOURS NEEDED acetaminophen (aka TYLENOL) tablet 325-650 mg 325-650 mg Oral EVERY 4 HOURS NEEDED bisacodyl (aka DULCOLAX) suppository 10 mg 10 mg Rectal TWICE DAILY NEEDED FENtanyl (aka SUBLIMAZE) bolus from continuous infusion 50 mcg 50 mcg Intravenous EVERY 2 HOURS NEEDED fentanyl (aka SUBLIMAZE) injection 50-100 mcg 50-100 mcg Intravenous EVERY 1 HOUR NE EDED fentanyl in NaCl 0.9% (aka SUBLIMAZE) IV infusion 1-75 mcg/hr 1-75 mcg/hr Intravenous C ONTINUOUS labetalol (aka NORMODYNE,TRANDATE) injection 10-40 mg 10-40 mg Intravenous EVERY 10 MIN UTES NEEDED magnesium hydroxide (aka MILK OF MAGNESIA) suspension 30 mL 30 mL Oral EVERY 4 HOURS NEEDED metoclopramide (aka REGLAN) injection 5-10 mg 5-10 mg Intravenous EVERY 4 HOURS NEED ED NaCl 0.9%-KCl 20 mEq IV infusion Intravenous CONTINUOUS niCARdipine 0.2 mg/mL in NaCl 0.9% IV infusion 5-15 mg/hr Intravenous CONTINUOUS nimodipine (aka NIMOTOP) capsule 60 mg 60 mg Oral EVERY 4 HOURS ondansetron (aka ZOFRAN) injection 4 mg 4 mg Intravenous EVERY 8 HOURS NEEDED ondansetron (aka ZOFRAN) injection 4 mg 4 mg Intravenous EVERY 12 HOURS NEEDED oxycodone immediate release (aka ROXICODONE) tablet 5-15 mg 5-15 mg Oral EVERY 3 HOURS NEEDED PHENylephrine 0.2 mg/mL in NaCl 0.9% IV infusion (Pyxis) 0.01-3 mcg/kg/min Intravenous CONTINUOUS potassium chloride (aka KAOCHLOR) liquid 10-40 mEq 10-40 mEq Oral NEEDED potassium chloride IV 10 mEq 10 mEq Intravenous NEEDED potassium chloride IV 20 mEq 20 mEq Intravenous NEEDED pravastatin (aka PRAVACHOL) tablet 40 mg 40 mg Oral AT BEDTIME promethazine (aka PHENERGAN) injection 6.25-12.5 mg 6.25-12.5 mg Intravenous EVERY 4 HO URS NEEDED propofol (aka DIPRIVAN) injection 284-2,840 mcg/min 5-50 mcg/kg/min Intravenous CONTINU OUS ranitidine (aka ZANTAC) IV 50 mg 50 mg Intravenous EVERY 8 HOURS senna-docusate (aka SENOKOT S) 8.6-50 mg 1 Tab 1 Tab Oral TWICE DAILY sorbitol liquid 30-60 mL 30-60 mL Oral EVERY 2 HOURS NEEDED Imaging: Slow flow in L OWEN distal to aneurysm which was clipped Duplex B LE Pending ECHO pending PLAN: Neurological: Stable exam, awake, alert. EVD draining well at 10cm. No e/o DI at this time--Na 146 off of 3% NS Continue to monitor exam, monitor for spasm No e/o spasm: TCD 117, 122 HEENT: No active issues. Cardiovascular: Stable off pressors Respiratory: Tolerating extubation well GI: Swallow eval done--start soft mechanical diet . / Renal: Even to + 500ml ID/HO: Leukocytosis likely reactive, afebrile, will follow. Endocrine: No active issues. Musculoskeletal / Skin: No active issues. Routine decubitus ulcer prevention. Routine ICU Care: Lines: [place], CVC Sodium goal: 135-145 Feeding: soft mech Analgesia: prn Sedation: none Thromboprophylaxis: scd Head of bed: elevated Ulcer prophylaxis: h2 mukul Disposition: continue ICU care This patient has been staffed with Dr. Sahu, attending physician, who agrees with the above assessment and plan. GERTRUDE GRANADOS MD Vinay Ziegler 09/22 5:27 AM PDT NEUROSURGERY PROGRESS NOTE Author: VINAY BOLAÑOS MD Attending Physician: Magnolia Diego HPI/Interval Update: No acute evetns. Physical Exam: BP 127/53 | Pulse 69 | Temp 36.7 C (98.1 F) | Resp 22 | Ht 1.676 m (5' 6") | Wt 56.8 kg (125 lbs 3.5 oz) | SpO2 94% Systolic (24hrs), Av mmHg, Min:95 mmHg, Max:147 mmHg Diastolic (24hrs), Av mmHg, Min:51 mmHg, Max:79 mmHg Pulse Av.5 Min: 57 Max: 96 Temp Av.8 C (98.3 F) Min: 36.6 C (97.9 F) Max: 37.2 C (99 F) Resp Av.4 Min: 15 Max: 26 SpO2 Av.8 % Min: 89 % Max: 100 % Intake/Output Summary (Last 24 hours) at 10/19 0846 Last data filed at 10/19 0800 Gross per 24 hour Intake 3467.4 ml Output 2291 ml Net 1176.4 ml Lab Results Basename Value Date/Time NA 147* 10/20/07 0613 K Combined. 10/20/07 0613 CR 0.57* 10/20/07 0100 HCT 27.6* 10/20/07 0100 WBC 18.0* 10/20/07 0100 PLT 186 10/20/07 0100 INR Not Recd 10/18/07 0501 ] CULTURE RESULT (no units) Date Value 10/19/07 CSF Culture Source...............: Ventricular Fluid Cerebrospinal Flu id RLB Gram Stain...........: Gram smear performed at [facility]. Culture: Preliminar y Report: No growth after 1 day. Culture examined daily. Report will be updated if growth occurs. Further report to follow. Up to Last 5 ABGs in 72 hours: Recent Labs Basename 10/19/07 0148 10/18/07 0820 PH 7.36* 7.34* PCO2 45* 43 PO2 143* 207* HCO3 25 23 [id number] 26 24 [id number] 99.0* 99.3* [id number] -- -- FIO2 .6 80 Last Ventilator Settings: Mode: Ventilator Mode: SIMV / VC + PS (10/19/07 4:00 PM) FiO2: FIO2 (%): 35 fraction of O2 (10/19/07 4:00 PM) Rate Set: Set Rate: 8 bpm (10/19/07 4:00 PM) Rate Total: Total Rate: 14 bpm (10/19/07 2:31 PM) TV: VT SET: 500 ml (10/19/07 4:00 PM) PS Set: PSV: 10 cm H2O (10/19/07 4:00 PM) PEEP: PEEP: 5 cm H2O (10/19/07 4:00 PM) Awake, alert, oriented x2 PERRL B, EOMI, face symmetrical, Palate equal, tongue ML, V1-V3 intact. Motor: no drift, full strength Sensation intact to light touch in all ext ANgio: negative for any residual aneurysm Assessment and Plan: SAH HH1F3<-- HH4F3 PBD 3 PCD 2 doing much better. Neuro: Stable exam, more awake. Alert after extubation. EVD draining well at 10cm. No e/o DI at this time, last SG 1.025, Na stable at 146 off 3%. Continue to monitor exam, monitor for spasm No e/o spasm: TCD 117, 122 CV: Stable, echo shows good cardiac function, resolved troponins. Pulm: Extubated, tolerating it well. Per report, pt aspirated, no e/o aspiration PNA. Renal: low uop, will continue to run IVF a@ 100/hr. 500 cc bolus Heme/ID: incr WBC, no e/o infection, afebrile, not on ABx, continue to monitor. Candida Fields 09/22 7:50 PM PDTNEUROSCIENCE ICU ATTENDING INPATIENT PROGRESS NOTE Critical Care attending physician: CANDIDA PUCKETT MD Referring Attending Physician: Magnolia Diego I saw and evaluated the patient at the bedside together with Dr Oreilly (fellow). I reviewed his findings, all data and the the recent imaging available. I agree with the assessment a nd plan as described in the residents note. I discussed the care plan with the primary martha m. Reason for ICU admission: ICU-D 1 ; s/p SAH (H&H Gr 4; Rodrigues Gr 3), POD 1 ; s/p A-com ane urysm clipping ; suspicious for crosscutter involvement ; angio today Last 24 hours: improved, follows commands Current ICU problem list: EVD ; daily TCD ; Angio today to eval OWEN/perforators residential monitor ; ECHO today to determine card function ; phenyephrine to maintain SBP > 12 0 ; recheck troponin consider weaning and extubation in next 24 hrs if angio ok ; COPD normomatremia ; q 6hr Na, K checks, i/o goal + 500-1000ml/24 hr ISS NPO until clear, extubated CCT: 45 minutes Candida Puckett Arlette Lee - 10/19/2007 5:05 PM PDTNSICU CARE MANAGEMENT DISCHARGE PLANNING NOTE Reason for Admission: Two weeks prior to admission the patient had a headache associated wi th a left ear infection. 10/17/2007 The patient complained of a severe headache, fell to the ground unconscious. The family took her to [facility] ED in [place] where she was fo und to have a SAH. Transferred to [facility] for care. Course: Intubated and on the ventilator. Aspiration. Bronchoscopy done. For angio today. Wi ll wean to extubate after angio. 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 Funding/Insurance: None noted. Home Environment/Equipment: To be assessed. Family/Informal Support System: . , daughter and son-in-law listed as emergen cy contacts. Have come up to [facility]. Needs further assessment. Baseline Function: To be determined. Assessment: Critically ill. Unable to determine discharge plan at this time. PLAN: 1. Angio today. 2. Care Management will follow for timely discharge. Arlette hernandez RN, GNP pgr [phone]. iu Peter Daniel - 10/19/2007 10:47 AM PDTThis patient was treated on the Interventional Neuror adiology (INR) service and we appreciate being involved in the care. If you have any questio ns please do not hesitate to call or page us. Peter Urbina M.D. (pager [phone]) Bob Peraza M.D., Ph.D. Aneurysm well occluded, ACOMM not visualized, poor slow A2 filling from left side. Carlitos/Stu No Star[place], pressure held. Flat x 6 hours. Chi Rollins Md - 2007 10:40 AM PDTE: OR yesterday for clipping Neuro: per report, following commands with all 4 extremities ICP 208, EVD at 10, CPP 65-78 Meds: propofol, fentanyl, nimodipine, pravastatin CV: BP 90-100/60s, 68-73 Meds: phenylephrine for goal SBP 120-140 Echo pending Resp: simv/ps 500 x 16; PS 10/5 1AM: 7.36/45/143 on 60% FiO2 FEN: 4.4/2.2 Chem 7: 146/4.0/116/24/8/0.8/146 Heme/ID: Tm 38.0 CBC: / A/P: 57 yo with HH 4/Hills 3 SAH from ACOM aneurysm PBD #2/POD#1. 1. SAH: -cont EVD -nimodipine, pravastatin, daily TCD -angio today to eval OWEN/perforators -I>0 -SBP 120-160 until angio; if no residual, relax SBP to <200 2. Relative hypotension. ?neurocardiogenic -f/u echo -liz to keep SBP>120 3. Resp. -pending results of angio, consider weaning and extubation in next 24 hrsElectronically sig gem by Chi Oreilly Md at 10/19/2007 10:54 AM PDTTerence Castro - 10/19/2007 8:21 AM PD TTransthoracic echocardiogram completed. Final report to follow. Magnolia Mayfield - 10/19/19 08 5:26 AM PDT NEUROSURGERY PROGRESS NOTE Author: VINAY BOLAÑOS MD Attending Physician: Magnolia Diego HPI/Interval Update: No acute events Physical Exam: BP 100/51 | Pulse 69 | Temp 37.3 C (99.1 F) | Resp 16 | Ht 1.676 m (5' 6") | Wt 56.8 kg (125 lbs 3.5 oz) | SpO2 100% Systolic (24hrs), Av mmHg, Min:93 mmHg, Max:109 mmHg Diastolic (24hrs), Av mmHg, Min:42 mmHg, Max:64 mmHg Pulse Av.2 Min: 68 Max: 107 Temp Av.2 C (99.0 F) Min: 36.6 C (97.9 F) Max: 38 C (100.4 F) Resp Av.2 Min: 15 Max: 19 SpO2 Av.9 % Min: 99 % Max: 100 % Intake/Output Summary (Last 24 hours) at 10/18 05 Last data filed at 10/18 0500 Gross per 24 hour Intake 4465.1 ml Output 2133 ml Net 2332.1 ml Lab Results Basename Value Date/Time NA 146* 10/19/07144 K 4.0 10/19/07144 CR 0.75 10/19/07144 HCT 30.7* 10/19/07144 WBC 15.2* 10/19/07144 PLT 223 10/19/07144 INR Not Recd 10/18/07 0501 ] No results found for this basename: culture Up to Last 5 ABGs in 72 hours: Recent Labs Basename 10/19/0714710/18/07 0820 PH 7.36* 7.34* PCO2 45* 43 PO2 143* 207* HCO3 25 23 [id number] 26 24 [id number] 99.0* 99.3* V2BQUGIOX -- -- FIO2 .6 80 Last Ventilator Settings: Mode: Ventilator Mode: SIMV / VC + PS (10/19/07 5:00 AM) FiO2: FIO2 (%): 45 fraction of O2 (10/19/07 5:00 AM) Rate Set: Set Rate: 16 bpm (10/19/07 5:00 AM) Rate Total: Total Rate: 16 bpm (10/19/07 12:39 AM) TV: VT SET: 500 ml (10/19/07 5:00 AM) PS Set: PSV: 10 cm H2O (10/19/07 5:00 AM) PEEP: PEEP: 5 cm H2O (10/19/07 5:00 AM) Last ICP Mean: 5 mmHg (10/19/07 5:00 AM) CPP (cerebral perfusion pressure): 68 mmHg (10/19/07 5:00 AM) 24 Hour ICP Mean Av.5 mmHg Min: 0 mmHg Max: 14 mmHg CPP (cerebral perfusion pressure) Av.5 mmHg Min: 57 mmHg Max: 99 mmHg EVD @ 10cm 198cc/24h Assessment and Plan: 57 yo F SAH PBD 2, PCD#1, HH4F3. EVD placed yesterday. - Neuro - improved exam - plan for angio today to eval vasculature and verify occlusion and patency of surounding vessels. - Drain EVD at 10cm, CSFsent today, repeat in 3 days - repeat angio day PBD 7, 10/24/07 - SAH protocol: daily TCD, euvolemia to 500+. Currently +2.3L, allow diuresis, decreased fluids. - Pulm: intubated, likely aspiratioin, stable. Will wean toward extubation after angio - CV: Stable, permissive HTN - Heme/ID: Na 146, monitor for DI as there may have been some perforater disruption. Q6 Na, Q6 SG. - elevated WBC to 15, aspirated, on vanco/zosyn I saw and evaluated the patient and discussed the diagnosis and management of the patient w ith the Resident. See also the Resident's note from today's visit. I agree with the document ation findings and plan of care. MAGNOLIA DIEGO MD [facility] 7C NEURO SCI ICU [address] [place] [address] hemay - 1:07 AM PDTPOST OP note: s/p clipping R crani 4hr case Airway: intubated in the unit prior to surgery Induction: Fent, Vec Access: L SC cvc, R radial Aleja Mannitol 50, Decadron 10 EBL: 100 I/O: 1268/703 urine PE: Neuro: obeys 2/3 commands, thumbs up B, moves toes, coughs and is aggitated Spontaneous motor x4 HENT: incision intact, EVD inplace, ^ OP w/ coughing, bloody RESP: CTA B CHEST: L SC cvc, no erythema CV: rrr, HR 70, 130/60 ^ to 170 w/ coughing ABD: healed scars noted, abd soft, slight protruberant, +BT : benavides, R groin dressed 2-3 cm palp hematoma, no oozing noted. EXT: symetrical, cool feet A/P -s/p clipping, HH4, FG4 SAH; cont SAH protocol- statin and normomatremia -CV- liberalize BP for CPP, SBP <180 -f/u troponins -resp- s/p bronch today, vent failure d/t LOC, cont vent- check ABG and CXR Likely COPD w/ long smoking hx -access- cont aleja and sc cvc -Lyte- frequent Na and K checks, i/o goal 500-1000mls pos. Time: 34 minutes in the evaluation, management, and review of orders for this patient. TAYLOR GRIGGS Marlon Muir - 008 12:[address] satisfactory Intubated Sedated Moves LUE and pat LE purposefully Min movement in R UE Unchanged NE from pre-op. Will keeep intubated overnight and follow at ICU. EVD open to drain at 20 cm. Patent. [employer] Fercho Ugalde Md - 10/18/2007 10:49 PM PDTINPATIENT BRIEF OPERATIVE NOTE Date: 10/18/2007 Author: XOCHITL DAVIS MD Attending Physician: Brandie Assistants: Saira Davis At (time), prior to the beginning of the procedure the team paused to verify the patient's identity, as well as the procedure to be performed and the correct side/site. All equipmen t required was ready and available. The patient was positioned appropriately. The following team members were present during the team pause: Ryan and staff Preoperative Diagnosis: SAH, a-comm aneurysm Postoperative Diagnosis: same Procedure Performed: right crani for clipping of aneurysm Estimated Blood Loss: 300 Fluids: per anes Specimens: aneurysm wall Complications: none Drains: none Disposition: icu Findings: thick walled aneurysm with thin walled daughter aneurysm glesiaCandida Tom - 10/18/2007 9:06 PM PDTNEUROSCIENCE ICU ATTENDING INPATIENT PROGRESS NOTE Critical Care attending physician: CANDIDA PUCKETT MD Referring Attending Physician: Magnolia Diego I saw and evaluated the patient at the bedside together with Dr Lowry. I reviewed her find ings, all data and the the recent imaging available. I agree with the assessment and plan a s described in the residents note. I discussed the care plan with the primary team. Reason for ICU admission: ICU-D 1s/p SAH (H&H Gr 4; Rodrigues Gr 3) Last 24 hours: 57 yo female with intermittent headaches for past 2 weeks related to L ear i nfection. Headache became suddenly more severe on evening of 10/16. Pt stood up clutching hea d and then fell to the ground +LOC. Taken by family to ED with reported posturing and agonal respirations in transport and on arrival with GSC 3 on arrival to OSH ED. Intubated emergen tly; received midaz and pancuronium. Per report - gastric contents suctioned from ETT. CT he ad obtained & found to have SAH & transferred to [facility]. Given additional vecuronium and midaz approx 20 min prior to arrival. HTN to 200's and SVT in transport. Current ICU problem list: Neuro: Nicardipine to keep SBP<160 ; Neuro to place EVD ; Angio in AM ; will be followed l ikely by surgery to clipp aneurysm (A-COM) ; Na goal 130-140 ; Cards: EKG monitoring ; obtain Echo if pt becomes HD unstable ; SPB >120 < 160 ; suspect long-term HTN Pulm: Possible aspiration ; f/u CXR ; bronchoscopy today Endo: Insulin drip ; check TFT's Heme/ID: Keflex for otitis if indicated FEN: Euvolemia goal ; Replace K ; NPO (OR likely) CCT: 41 minutes Candida Puckett Danni Collins - 10/18/2007 3:53 PM PDTSocial Work Note: Pt was transferred to [facility] from [facility] after suffering a subarachnoid hemorrhage. Pt is currently intubated. STATEMENT DISTRIBUTION CLERK met briefly with Pt's daughter - Linda and [id number] on the 7th floor waiting room while they waited to hear whether or not Pt would go to the [place] [facility]. Pt's was not available at the time. STATEMENT DISTRIBUTION CLERK explained social work role at [facility] and contact info given. Family also given a hotel packet and info re RV spots on campus. STATEMENT DISTRIBUTION CLERK w ill follow as needed. Danni Collins STATEMENT DISTRIBUTION CLERK #[id number] signed by Danni Collins at 008 4:00 PM PDTdocumented in this encounter H&P Notes Magnolia Diego - 10/18/2007 7:14 AM PDTFormatting of this note might be different from the o riginal. NEUROSURGERY H+P NOTE Author: VINAY BOLAÑOS MD Attending Physician: Magnolia Diego CC: SAH HPI/Interval Update: 57 yo F who has been c/o ZULUAGA for last 2 days who last night was sitting in chair stood up, g rabbed the back of her head, screamed and then became unconscious and fell back into couch u nresponsive. Pt vomited and aspirated, was taken by family to [facility] where CT head showed large amount of SAH in prepontine, interpeduncular and ambien cistersn. SAH extnding to B sylivians. Pt was intubated, deep suctioned and transferred to [facility] for further care. PMH: HTN, COPD, Asthma, vascular disease PSH: Past Surgical History Procedure Date Hx partial thyroidectomy Hx hysterectomy Cholecystecomy Hx bladder suspension Social Hx: History Tobacco Use Yes -- 2.0 packs/day for 40 years reports that she drinks alcohol. No family history on file. Problems: There is no problem list on file for this patient. Medications: Current hospital medications: bisacodyl (aka DULCOLAX) suppository 10 mg, 10 mg, Rectal, TW ICE DAILY NEEDED, VINAY BOLAÑOS dextrose injection 25 mL, 25 mL, Intravenous, NEEDED, KODY LOWRY fentanyl (aka SUBLIMAZE) injection 50-100 mcg, 50-100 mcg, Intravenous, EVERY 1 HOUR ADRIANNE DED, VINAY BOLAÑOS fentanyl in NaCl 0.9% (aka SUBLIMAZE) IV infusion 1-75 mcg/hr, 1-75 mcg/hr, Intravenous, CO NTINUOUS, NAYLA ARREGUIN glucagon (aka GLUCAGEN) injection 1 mg, 1 mg, Intramuscular, NEEDED, KODY LOWRY glucose chewable tablet 3 Tab, 15 g, Oral, EVERY 15 MINUTES NEEDED, KODY LOWRY insulin regular 1 unit/mL in NaCl 0.9% IV infusion (Pyxis) , 0.25-40 Units/hr, Intravenous, CONTINUOUS, KODY LOWRY labetalol (aka NORMODYNE,TRANDATE) injection 10-40 mg, 10-40 mg, Intravenous, EVERY 10 PATRICIA MATTHEW NEEDED, VINAY BOLAÑOS magnesium hydroxide (aka MILK OF MAGNESIA) suspension 30 mL, 30 mL, Oral, EVERY 4 HOURS NEEDED, VINAY BOLAÑOS metoclopramide (aka REGLAN) injection 5-10 mg, 5-10 mg, Intravenous, EVERY 4 HOURS NEEDE DLENA NEIL E NaCl 0.9%-KCl 20 mEq IV infusion, , Intravenous, CONTINUOUS, VINAY BOLAÑOS NaCl 3 % IV infusion, , , , niCARdipine 0.2 mg/mL in NaCl 0.9% IV infusion , 5-15 mg/hr, Intravenous, CONTINUOUS, VINAY SÁNCHEZ nimodipine (aka NIMOTOP) capsule 60 mg, 60 mg, Oral, EVERY 4 HOURS, VINAY BOLAÑOS ondansetron (aka ZOFRAN) injection 4 mg, 4 mg, Intravenous, EVERY 8 HOURS, VINAY BOLAÑOS ondansetron (aka ZOFRAN) injection 4 mg, 4 mg, Intravenous, EVERY 8 HOURS NEEDED, VINAY BOLAÑOS ondansetron (aka ZOFRAN) injection 4 mg, 4 mg, Intravenous, EVERY 12 HOURS NEEDED, VINAY SÁNCHEZ oxycodone immediate release (aka ROXICODONE) tablet 5-15 mg, 5-15 mg, Oral, EVERY 3 HOURS A S NEEDED, VINAY BOLAÑOS potassium chloride (aka KAOCHLOR) liquid 10-40 mEq, 10-40 mEq, Oral, NEEDED, NAYLA ARREGUIN potassium chloride IV 10 mEq, 10 mEq, Intravenous, NEEDED, NAYLA ARREGUIN potassium chloride IV 20 mEq, 20 mEq, Intravenous, NEEDED, NAYLA ARREGUIN pravastatin (aka PRAVACHOL) tablet 40 mg, 40 mg, Oral, AT BEDTIME, VINAY BOLAÑOS promethazine (aka PHENERGAN) injection 6.25-12.5 mg, 6.25-12.5 mg, Intravenous, EVERY 4 HILARY RS NEEDED, VINAY BOLAÑOS propofol (aka DIPRIVAN) injection 284-2,840 mcg/min, 5-50 mcg/kg/min, Intravenous, CONTINUO US, NAYLA ARREGUIN ranitidine (aka ZANTAC) IV 50 mg, 50 mg, Intravenous, EVERY 8 HOURS, VINAY BOLAÑOS senna-docusate (aka SENOKOT S) 8.6-50 mg 1 Tab, 1 Tab, Oral, TWICE DAILY, VINAY BOLAÑOS sodium acetate-chloride (50:50) 3% IV infusion (hypertonic) , 1000 mL, Intravenous, CONTINU OUS, REKODY VORA B sorbitol liquid 30-60 mL, 30-60 mL, Oral, EVERY 2 HOURS NEEDED, VINAY BOLAÑOS Physical Exam: BP 109/64 | Pulse 94 | Temp 36.9 C (98.4 F) | Resp 15 | Ht 1.676 m (5' 6") | Wt 56.8 kg (125 lbs 3.5 oz) | SpO2 100% Systolic (24hrs), Av mmHg, Min:109 mmHg, Max:166 mmHg Diastolic (24hrs), Av mmHg, Min:64 mmHg, Max:95 mmHg Pulse Av.4 Min: 89 Max: 107 Temp Av.9 C (98.4 F) Min: 36.9 C (98.4 F) Max: 36.9 C (98.4 F) Resp Av.3 Min: 15 Max: 19 SpO2 Av.1 % Min: 84 % Max: 100 % Intake/Output Summary (Last 24 hours) at 10/17 0714 Last data filed at 10/17 0600 Gross per 24 hour Intake 280 ml Output 425 ml Net -145 ml Lab Results Basename Value Date/Time NA 137 10/18/07449 K 4.5 10/18/07449 CR 0.74 10/18/07449 HCT 44.3 10/18/07450 WBC 29.6* 10/18/07450 PLT 340 10/18/07450 INR 0.98 10/18/07449 ] Last Ventilator Settings: Mode: Ventilator Mode: SIMV / VC + PS (10/18/07 6:40 AM) FiO2: FIO2 (%): 80 fraction of O2 (10/18/07 6:40 AM) Rate Set: Set Rate: 16 bpm (10/18/07 6:40 AM) Rate Total: Total Rate: 16 bpm (10/18/07 4:44 AM) TV: VT SET: 16 ml (10/18/07 6:40 AM) PS Set: PSV: 10 cm H2O (10/18/07 6:40 AM) PEEP: PEEP: 5 cm H2O (10/18/07 6:40 AM) Neurologic: Intubated, minimal sedation. PERRL B 2mm, minimally reative. + corneals, Extends BUE to central pain, minimal movt in BLE CT head: shows above mentioned blood in basal cisterns faily symmterically. Hydrocephalus, no interventric blood. CT angio: likely a comm aneurysm Assessment and Plan: This is a 57 year old female with SAH HH4F3 from ruptued aneurysm, appers to be a-comm on C TA. Pt has some eleveated troponins and abnormal ECG. Will continue to monitor troponins. - Daily TCD - SAH protocol, SBP <160, euvolemic to 500cc+, nimodepine, pravostatin. - Angio today and possible OR - Pt is tolerating vent settings at this point, however given aspiration will continue to m onitor closely. May start ABx empirically. I saw and evaluated the patient and discussed the diagnosis and management of the patient w ith the Resident. See also the Resident's note from today's visit. I agree with the document ation findings and plan of care. MAGNOLIA DIEGO MD [facility] 7C NEURO SCI ICU [address] [place] [address] Kody Calderon - 10/18/2007 4:15 AM PDT INTENSIVE CARE HISTORY AND PHYSICAL Author: KODY LOWRY MD Attending Physician: Magnolia Diego PCP: No primary provider on file. HPI/Interval Update: 57 yo female with intermittent headaches for past 2 weeks related to L ear infection. Head ache became suddenly more severe on evening of 10/16. Pt stood up clutching head and then fe ll to the ground +LOC. Taken by family to ED with reported posturing and agonal respiration s in transport and on arrival with GSC 3 on arrival to OSH ED. Intubated emergently; receiv ed midaz and pancuronium. Per report - gastric contents suctioned from ETT. CT head obtain ed & found to have SAH & transferred to [facility]. Given additional vecuronium and midaz approx 20 min prior to arrival. HTN to 200's and SVT in transport. PMH: HTN - untreated for several years [...] Eyes - Negative Ears/Nose/Mouth/Throat - Negative except left otitis & ant. Cervical lymphadenopathy Cardiovascular - Negative except OVIEDO Respiratory - Negative except chronic cough Gastrointestinal - Negative except GERD/Heartburn Genitourinary - Negative Musculoskeletal - Negative except recent rash on foot Neurologic/Psychiatric - Negative except Chronic pain Hematologic/Lymphatic - Negative except as above Endocrine - NegativeAll other ROS negative. Meds: Keflex Allergies -obtained from OSH ER record Cipro Sulfa "anesthesia" No family history on file. Physical Exam: BP 152/82 | Pulse 99 | Temp 36.9 C (98.4 F) | Resp 17 | Ht 1.676 m (5' 6") | Wt 56.8 kg (125 lbs 3.5 oz) | SpO2 97% Systolic (24hrs), Av mmHg, Min:152 mmHg, Max:166 mmHg Diastolic (24hrs), Av mmHg, Min:76 mmHg, Max:95 mmHg Pulse Av.0 Min: 89 Max: 99 Temp Av.9 C (98.4 F) Min: 36.9 C (98.4 F) Max: 36.9 C (98.4 F) Resp Av.3 Min: 17 Max: 19 SpO2 Av.5 % Min: 84 % Max: 97 % Ventilator Settings SIMV 550/16 General Appearance: intubated/sedated HEENT: palpable lymph node left ant neck Respiratory: CTAB Cardiovascular: tachy reg rhythm Gastrointestinal: soft Neurologic: pt remains sedated with midaz/int. Propofol PERRL; withdraws BUE; no movement BLE; no eye opening Intravascular Catheters: Left radial aleja Data: Chemistries: Last 72 Hours (or 3 results): Recent Labs Basename 10/18/07 0450 NA 137 K 4.5 CL 102 BICARB 25 BUN 9 CR 0.74 CA 8.5* MG -- PO4 -- CBC with diff last 72 hours (or 3 results) Recent Labs Basename 10/18/07 0451 10/18/07 0450 WBC 29.6* Dup req HB 15.3 Dup req HCT 44.3 Dup req PLT 340 Dup req NEUTROPERC -- -- BANDPCT -- -- LYMPHPERC -- -- MONOPERC -- -- BASOPERC -- -- EOSPERC -- -- Assessment and Plan: 57 yo female with HH Gr 4 Rodrigues Gr 3 SAH Neuro: Euvolemia; initiate Nimodipin/pravastatin Na goal 130-140 Nicardipine to keep SBP<[address] E[address] Repeat CT head Angio in AM Cards: SVT EKG with LVH -obtain Echo if pt becomes HD unstable Pulm: Possible aspiration - will monitor -f/u CXR Endo: Glucose 195 -start Insulin gtt Hx partial thyroidectomy - will check TFT's Heme/ID; -Restart Keflex for otitis if indicated FEN: Euvolemia goal Replace K prn NPO for now documented in this en counter Procedure Notes Other, Faculty - 11/02/2007 2:59 PM PDTAssociated Order(s): RADIOLOGY Other, Faculty - 2:59 PM PDT Other, Faculty - 11/02/2007 2:59 PM PDTAssociated Order(s): ECHO PRO CEDURE Other, Faculty - 10/25/2007 4:45 PM PDTAssociated Order(s): ANESTHESIA/SEDATION Justin titi, May - 10/23/2007 2:11 PM PDTAssociated Order(s): PROCEDURE NOTEProcedure Note: Arterial Line At aprx 1310, prior to the beginning of the procedure the team paused to verify the patient 's identity, as well as the procedure to be performed and the correct side/site. All equipm ent required was ready and available. The patient was positioned appropriately. The followi ng team members were present during the team pause: Silvia RN and myself Indication: R aleja erythema, fever. Consent: Discussion of the risks, benefits, and alternatives was had with the patient's ina rogate prior to the procedure. ICU Consent Form verified on chart prior to procedure. Procedure Details: A Team Pause was performed. She was moving frequently during prep and wa s given propfol and fentanyl for sedation while intubated. She was given phenylephrine to m aintain MAP >60. Ulnar pulses were confirmed. Patient prepared with sterile prep,lidocaine 0.5cc local anest hetic. I inserted a 20 gauge catheter in the L radial artery. Perfusion to extremity wa s excellent. Findings: She developed bradycardia during the procedure after phenlephrine ^. Changed to Levofed with same goals. Low BP on NIBP cuff noted to 116 systolic. Resolved quickley. Patient did tolerate procedure well. TAYLOR GRIGGS ther, Faculty - 008 7:53 PM PDTAssociated Order(s): ANESTHESIA/SEDATION Other, Faculty - 10/20/2007 12:40 PM PDTAssociated Order(s): ECHO PROCEDURE Other, Faculty - 10/19/2007 5:52 PM PDTAssociate d Order(s): ANESTHESIA/SEDATION Nayla Arreguin - 10/18/2007 4:46 PM PDTAssociated Order (s): PROCEDURE NOTEProcedure Note: Bronchoscopy At 13:35 (time), prior to the beginning of the procedure the team paused to verify the hailey ent's identity, as well as the procedure to be performed and the correct side/site. All equ ipment required was ready and available. The patient was positioned appropriately. The foll owing team members were present during the team pause: Santos Riojas RT Indications: diagnostic and therapeutic Consent: Discussion of the risks, benefits, and alternatives was had with the patient's ina rogate prior to the procedure. All questions were satisfactorily answered and a signed conse nt form for this procedure was obtained and place on chart. Procedure Details: The patient was placed on 100% inspired oxygen. Procedural sedation was performed with cisatracurium, fentanyl and propofol. Vital signs were monitored continnuosl y and are as recorded in the nursing record. The patient s endotracheal tube was connected to a conduit device and 2 mL of 4% plain l idocaine was instilled into the the endotracheal tube . A well lubricated adult bronchoscope was introduced into the ETT and advanced to the elizabeth. The ETT tip was located at 3 cm abo ve the elizabeth. The bronchoscope was advanced into the bilateral mainstem bronchi and visuali zation of the patient s segmental. The airways were normal. Using a Lukens trap and insti lled 5 mL saline solution and solution was aspirated back. At the end of the procedure, the bronchoscope was withdrawn carefully and removed from the endotracheal tube without incident. Findings: There were no changes to vital signs. Patient did not tolerate procedure well. Specimens: None Chi Wick Md - 10/18/2007 1:55 PM PDTAssociated Order(s): PROCEDURE NOTEPROCEDURE NOTE Procedure: L subclavian triple lumen catheter Indication: monitoring of CVP and potential need for pressors Patient prepared with chloraprep and draped head to toe with angio sheet. Vessel cannulated with one pass after anesthesia with lidocaine 2cc. Vessel dilated and catheter placed over wire without complications. CXR shows line in good position and no PTX.Electronically shayy d by Chi Oreilly Md at 10/18/2007 1:55 PM Xochitl Ugalde - 10/18/2007 12:00 AM BENNY ssociated Order(s): OPERATION RECORD [id number] ONOFRE CASTRO [id number] Date: 10/18/2007 Attending Surgeon: Magnolia Diego M.D. Papier Mache Molder(s): Xochitl Davis M.D. 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 Procedures Performed: 1. Right pterional craniotomy and clipping of anterior communicating artery aneurysm. 2. Intraoperative high-powered microscopic dissection. Anesthesia: General endotracheal anesthesia. Estimated Blood Loss: 300 cc. Complications: None. Findings: The aneurysm was somewhat hard and calcified. It was occluded with 2 right angle clips. There were good Doppler signals in the distal A2s following clipping of the aneurysm. Indications: This is a woman who presented with a severe headache and nausea and vomiting. A CT scan showed a subarachnoid hemorrhage with a significant amount of blood in the tentorium and sylvian fissure. She was indicated for an angiography which showed an anterior communicating artery aneurysm. She was then taken down to the operating room for clipping of her aneurysm. Procedure: The patient was identified and brought to the operating room. General endotracheal anesthesia was induced. The patient's head was placed in Mcghee pins and positioned slightly into the left side. All pressure points were padded. A left semicoronal incision was then clipped, prepped, and draped in the usual fashion. Local was infiltrated with 0.25% Marcaine with epinephrine. The previously marked incision was then opened with a #10 blade. The incision was taken down to the skull, and a myocutaneous flap was turned anteriorly. Emmanuel holes were then placed over the root of the zygoma, the keyhole, and the coronal suture. A pterional flap was then turned. It was then dissected off the dura and lifted. The Anspach drill was then used to drill down the sphenoid wing. Multiple tack-up holes were placed using the Silver Zero bit, and tack-up sutures were placed using 4-0 Surgilon sutures. The dura was then opened in an U-shaped fashion with its base against the sphenoid wing. It was then retracted anteriorly. At this point, the intraoperative microscope was brought in under high-powered intraoperative microscopy. An arachnoid knife was used to open the sylvian fissure. The sylvian fissure was then dissected open using bipolar dissectors. The sylvian fissure opening was taken anteriorly up to the MCA and the carotid. Following this, the brain was gently retracted superiorly with the self-retaining retractors. The arachnoid over the optic nerve was opened using the arachnoid knife, and this opening was extended laterally and medially. This arachnoid was dissected down to the sylvian fissure opening, and the carotid lateral to the optic nerve was identified and dissected back to the bifurcation. The anterior cerebellar artery was then identified at this point and then dissected to the anterior communicating complex. Anterior communicating complex was then dissected at this point, and the aneurysm was also found and dissected. The contralateral A2 was somewhat hard to dissect because it was behind the aneurysm; however, this dissection was completed, and there was good visualization of the aneurysm. Next, temporary clips were placed on the anterior cerebellar arteries, and a right angle clip was used to occlude the aneurysm. There was also a smaller daughter aneurysm located lateral to the mid-aneurysm. This was also occluded using small right angle clip. There was concern that because of the aneurysm was somewhat calcified that the clip may fall off; therefore, a second right angle clip from the opposite direction was placed over the aneurysm. Doppler was used to check. There was no flow within the aneurysm. The aneurysm was opened. There were good Doppler signals in the A1s and A2s distally. Gelfoam and verapamil were used to line the carotids. A Rhoton microdissector was then used to open the lamina terminale. The self-retaining retractors were removed. The dura was closed using 4-0 Surgilon sutures. The bone flap was plated back to the patient's skull using cranial plating system. Temporalis muscle was closed using 0 Vicryl sutures, the galea was closed using 3-0 Vicryl sutures, and the skin was closed using 4-0 Rapide. The wound was dressed with bacitracin. The patient was then taken out of pins, extubated, and taken to recovery. Dr. Magnolia Diego was present for the essential aspects of this case including clipping of the aneurysm. Narinder Serrano M.D. VITALIY / ELINA [id number] / [id number] / [id number] / oMagnolia martell - 09/22 12:00 AM PDTAssociated Order(s): TEACHING PHYSICIAN [id number] ONOFRE CASTRO [id number] Date: 10/18/2007 Attending Surgeon: Magnolia Diego M.D. Papier Mache Molder(s): Narinder Serrano M.D. 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 Procedures Performed: 1. Right pterional craniotomy. 2. Dissection and clipping of the anterior communicating artery aneurysm x2. 3. Utilization of the intraoperative microscope. 4. Utilization of intraoperative Doppler. Complications: None. Anesthesia: General endotracheal anesthesia. I, Dr. Magnolia Diego, was in the OR during the critical portions of this procedure which include the craniotomy, dissecting and clipping of the aneurysm, and hemostasis. A full operative report will be dictated by Dr. Xochitl Davis. Magnolia Diego M.D. AD / [id number] / [id number] / [id number] / documented in this encounte r Miscellaneous Notes Scan - Other, Faculty - 11/02/2007 2:59 PM PDT Scan - Other, Faculty - 11/02/2007 2:59 P M PDT Scan - Other, Faculty - 11/02/2007 2:59 PM PDT Scan - Other, Faculty - 11/02/2007 2:59 PM PDT Scan - Other, Faculty - 11/02/2007 2:59 PM PDT Scan - Other, Faculty - 2007 2:59 PM PDT Scan - Other, Faculty - 11/02/2007 2:59 PM PDT Scan - Other, - 11/02/2007 2:59 PM PDT Scan - Other, - 11/02/2007 2:59 PM PDT Scan - Other, [facility] - 11/02/2007 2:59 PM PDT Scan - Other, - 11/02/2007 2:59 PM PDT Scan - Other , Faculty - 10/30/2007 11:39 PM PDT Significant Event - Cami Dyeroksana ConstantinoDawson - 10/22/2007 3:20 AM PDTPatient with increased cough, fever this afternoon, cxr showed RLL pn a, pt started on vanc and zosyn Overnight pt became gradually more tachypneic, to RR 40, and worsening respiratory distress . Received nebs without benefit. ABG showed hypoxia. Intubated at around 3 am, by anesthe easton. O2 sats dropped briefly to 60s during bagging prior to intubation. Pt was intubated u neventfully. I attempted to contact patient's NOK at all listed numbers in chart prior to i ntubation, but was unsuccessful to reach anybody. Patient also dumping increasing amounts of urine. 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 Have sent urine SG and are replacing urine with NS and increasing 3% to maintain Na 145-155. Avani ctronically signed by Anastasiia Clarke at 10/22/2007 3:26 AM PDTEric - Rosalva rao Md, Long Santos - 10/21/2007 6:42 AM PDTFormatting of this note might be different from the o riginal. Author: LONG DEMARCO Attending Physician: Magnolia Diego PBD4, POD2, has EVD open @ 10 Objective: 57 yof, HH4 F4 SAH, clipped aneurysm Subjective: stable, no events no complaints ON BP 134/64 | Pulse 66 | Temp 37.5 C (99.5 F) | Resp 22 | Ht 1.676 m (5' 6") | Wt 56.8 kg (125 lbs 3.5 oz) | SpO2 94% Systolic (24hrs), Av mmHg, Min:126 mmHg, Max:155 mmHg Diastolic (24hrs), Av mmHg, Min:53 mmHg, Max:85 mmHg Pulse Av.0 Min: 66 Max: 98 Temp Av.1 C (98.8 F) Min: 36.6 C (97.9 F) Max: 37.5 C (99.5 F) Resp Av.9 Min: 16 Max: 28 SpO2 Av.4 % Min: 90 % Max: 97 % Patient Vitals in the past 8 hrs: BP Temp Temp src Pulse Resp SpO2 Height Wt - Scale 10/21/07 0400 134/64 mmHg - - 66 22 94 % - - 10/21/07 0300 144/70 mmHg - - 76 28 96 % - - 10/21/07 0200 134/63 mmHg - - 67 24 94 % - - 10/21/07 0100 126/59 mmHg - - 81 26 90 % - - 10/21/07 0000 - 37.5 C (99.5 F) - 74 27 95 % - - 10/20/07 2300 132/72 mmHg - - 77 16 97 % - - Intake/Output Summary (Last 24 hours) at 10/20 641 Last data filed at 10/21 399 Gross per 24 hour Intake 3717 ml Output 2265 ml Net 1452 ml Ventilator Settings Lab Results Lab Test Name Results Date/Time WBC 15.9 10/21/07 HB 9.2 10/21/07 HCT 26.6 10/21/07 PLT 176 10/21/07 MCV 95.2 10/21/07 RDW 13.4 10/21/07 Lab Results Lab Test Name Results Date/Time NA 141 10/21/07 K 4.1 10/21/07 CL 113 10/21/07 BICARB 23 10/21/07 BUN 7 10/21/07 CR 0.63 10/21/07 GLU 110 10/21/07 CA 8.0 10/21/07 INR (INR) Date Value 10/18/07 Not Recd Current Inpatient Medications Medication Dose Route Frequency acetaminophen (aka TYLENOL) suppository 650 mg 650 mg Rectal EVERY 6 HOURS NEEDED acetaminophen (aka TYLENOL) tablet 325-650 mg 325-650 mg Oral EVERY 4 HOURS NEEDED albuterol 0.083% (aka PROVENTIL,VENTOLIN) 2.5 mg /3 mL (0.083 %) nebulizer solution albuterol-ipratropium (aka DUO-NEB) nebulizer solution 3 mL 3 mL Inhalation FOUR TIMES DAILY albuterol-ipratropium (aka DUO-NEB) nebulizer solution 3 mL 3 mL Inhalation ONCE bisacodyl (aka DULCOLAX) suppository 10 mg 10 mg Rectal TWICE DAILY NEEDED FENtanyl (aka SUBLIMAZE) bolus from continuous infusion 50 mcg 50 mcg Intravenous EVERY 2 HOURS NEEDED fentanyl (aka SUBLIMAZE) injection 50-100 mcg 50-100 mcg Intravenous EVERY 1 HOUR NE EDED fentanyl in NaCl 0.9% (aka SUBLIMAZE) IV infusion 1-75 mcg/hr 1-75 mcg/hr Intravenous C ONTINUOUS labetalol (aka NORMODYNE,TRANDATE) injection 10-40 mg 10-40 mg Intravenous EVERY 10 MIN UTES NEEDED magnesium hydroxide (aka MILK OF MAGNESIA) suspension 30 mL 30 mL Oral EVERY 4 HOURS NEEDED metoclopramide (aka REGLAN) injection 5-10 mg 5-10 mg Intravenous EVERY 4 HOURS NEED ED NaCl 0.9%-KCl 20 mEq IV infusion Intravenous CONTINUOUS niCARdipine 0.2 mg/mL in NaCl 0.9% IV infusion 5-15 mg/hr Intravenous CONTINUOUS nimodipine (aka NIMOTOP) capsule 60 mg 60 mg Oral EVERY 4 HOURS ondansetron (aka ZOFRAN) injection 4 mg 4 mg Intravenous EVERY 12 HOURS NEEDED oxycodone immediate release (aka ROXICODONE) tablet 5-15 mg 5-15 mg Oral EVERY 3 HOURS NEEDED PHENylephrine 0.2 mg/mL in NaCl 0.9% IV infusion (Pyxis) 0.01-3 mcg/kg/min Intravenous CONTINUOUS potassium chloride (aka KAOCHLOR) liquid 10-40 mEq 10-40 mEq Oral NEEDED potassium chloride IV 10 mEq 10 mEq Intravenous NEEDED potassium chloride IV 20 mEq 20 mEq Intravenous NEEDED pravastatin (aka PRAVACHOL) tablet 40 mg 40 mg Oral AT BEDTIME promethazine (aka PHENERGAN) injection 6.25-12.5 mg 6.25-12.5 mg Intravenous EVERY 4 HO URS NEEDED propofol (aka DIPRIVAN) injection 284-2,840 mcg/min 5-50 mcg/kg/min Intravenous CONTINU OUS ranitidine (aka ZANTAC) IV 50 mg 50 mg Intravenous EVERY 8 HOURS senna-docusate (aka SENOKOT S) 8.6-50 mg 1 Tab 1 Tab Oral TWICE DAILY sorbitol liquid 30-60 mL 30-60 mL Oral EVERY 2 HOURS NEEDED Patient is A+Ox3, Names 5/5, PERRLA, EOMI, VFF, Face symmetric, Hearing intact to rub, V1-V3 intact, tongue ML, Uvula central elevated, shruggs both should ers. Her motor exam is 5/5 allover, normal bulk and tone, normal FFM. Sensations are ILT, normal cortical and deep sensations as well as Pin prick. Reflexes are 2/4 allover. Cerebellar exam is normal for FTN test and CHAYO test. A/P: 57 yof , PBD 4 POD3 from aneurysmal SAH HH4F4, stable , doing well, no e/o spasm or DI. Lester naik continue to watch per routine SAH protocol documented in this enc ounter Plan of Treatment + +------+--------+ + + | Name | Type | Priori | Associated Diagnoses | Date/Time | | | | ty | | | + +------+--------+ + + | AUTO DIFFERENTIAL | Lab | Urgent | | 10/19/2007 1:00 AM | | | | | | PDT | + +------+--------+ + + | TRANSTHORACIC | ECG | Routin | | 10/19/2007 7:28 AM | | ECHOCARDIOGRAM, | | e | | PDT | | ADULT | | | | | + +------+--------+ + + | SAL RAHMAN ONLY | Lab | Routin | | 10/24/2007 11:29 AM | | | | e | | PDT | + +------+--------+ + + documented as of this encounter Procedures + +--------+ + + + | Procedure Name | Priori | Date/Time | Associated Diagnosis | Comments | | | ty | | | | + +--------+ + + + | PROCEDURE NOTE | Routin | 03/28/2015 | | Results for this | | | e | 2:58 PM | | procedure are in the | | | | PST | | results section. | + +--------+ + + + | PROCEDURE NOTE | Routin | 03/28/2015 | | Results for this | | | e | 2:58 PM | | procedure are in the | | | | PST | | results section. | + +--------+ + + + | PROCEDURE NOTE | Routin | 03/28/2015 | | Results for this | | | e | 2:57 PM | | procedure are in the | | | | PST | | results section. | + +--------+ + + + | RESP CARE THERAPY | Routin | 11/02/2007 | | Results for this | | | e | 6:00 PM | | procedure are in the | | | | PDT | | results section. | + +--------+ + + + | ECHO PROCEDURE | | 11/02/2007 | | Results for this | | | | 2:59 PM | | procedure are in the | | | | PDT | | results section. | + +--------+ + + + | RADIOLOGY | | 11/02/2007 | | Results for this | | | | 2:59 PM | | procedure are in the | | | | PDT | | results section. | + +--------+ + + + | RESP CARE THERAPY | Routin | 11/02/2007 | | Results for this | | | e | 7:50 AM | | procedure are in the | | | | PDT | | results section. | + +--------+ + + + | RESP CARE THERAPY | Routin | 11/02/2007 | | Results for this | | | e | 6:00 AM | | procedure are in the | | | | PDT | | results section. | + +--------+ + + + | RESP CARE THERAPY | Routin | 11/02/2007 | | Results for this | | | e | 1:24 AM | | procedure are in the | | | | PDT | | results section. | + +--------+ + + + | RESP CARE THERAPY | Routin | 11/01/2007 | | Results for this | | | e | 7:50 AM | | procedure are in the | | | | PDT | | results section. | + +--------+ + + + | RESP CARE THERAPY | Routin | 11/01/2007 | | Results for this | | | e | 6:34 AM | | procedure are in the | | | | PDT | | results section. | + +--------+ + + + | RESP CARE THERAPY | Routin | 10/31/2007 | | Results for this | | | e | 9:23 PM | | procedure are in the | | | | PDT | | results section. | + +--------+ + + + | RESP CARE THERAPY | Routin | 10/31/2007 | | Results for this | | | e | 6:30 PM | | procedure are in the | | | | PDT | | results section. | + +--------+ + + + | POTASSIUM, PLASMA | Routin | 10/31/2007 | | Results for this | | | e | 2:35 PM | | procedure are in the | | | | PDT | | results section. | + +--------+ + + + | POTASSIUM, PLASMA | Routin | 10/31/2007 | | Results for this | | | e | 2:35 PM | | procedure are in the | | | | PDT | | results section. | + +--------+ + + + | SODIUM, PLASMA | Routin | 10/31/2007 | | Results for this | | | e | 2:35 PM | | procedure are in the | | | | PDT | | results section. | + +--------+ + + + | RESP CARE THERAPY | Routin | 10/31/2007 | | Results for this | | | e | 2:00 PM | | procedure are in the | | | | PDT | | results section. | + +--------+ + + + | RESP CARE THERAPY | Routin | 10/31/2007 | | Results for this | | | e | 8:30 AM | | procedure are in the | | | | PDT | | results section. | + +--------+ + + + | POTASSIUM, PLASMA | Routin | 10/31/2007 | | Results for this | | | e | 7:28 AM | | procedure are in the | | | | PDT | | results section. | + +--------+ + + + | SODIUM, PLASMA | Routin | 10/31/2007 | | Results for this | | | e | 7:28 AM | | procedure are in the | | | | PDT | | results section. | + +--------+ + + + | RENAL FUNCTION SET | Routin | 10/31/2007 | | Results for this | | (NA,K,CL,CO2,BUN,CRE | e | 7:28 AM | | procedure are in the | | AT,GLUC,CA,PHOS,ALB | | PDT | | results section. | | ) | | | | | + +--------+ + + + | MAGNESIUM, PLASMA | Routin | 10/31/2007 | | Results for this | | | e | 7:28 AM | | procedure are in the | | | | PDT | | results section. | + +--------+ + + + | VASC LAB PORTABLE | Routin | 10/31/2007 | | Results for this | | TRANSCRANIAL DOPPLER | e | 1:39 AM | | procedure are in the | | COMPLETE | | PDT | | results section. | + +--------+ + + + | RESP CARE THERAPY | Routin | 10/31/2007 | | Results for this | | | e | 1:10 AM | | procedure are in the | | | | PDT | | results section. | + +--------+ + + + | SPECIFIC GRAVITY, | Routin | 10/31/2007 | | Results for this | | BODY FLUID | e | 1:00 AM | | procedure are in the | | | | PDT | | results section. | + +--------+ + + + | CBC ONLY | Urgent | 10/31/2007 | | Results for this | | | | 12:01 AM | | procedure are in the | | | | PDT | | results section. | + +--------+ + + + | SPECIFIC GRAVITY, | Routin | 10/30/2007 | | Results for this | | BODY FLUID | e | 10:05 PM | | procedure are in the | | | | PDT | | results section. | + +--------+ + + + | RESP CARE THERAPY | Routin | 10/30/2007 | | Results for this | | | e | 9:47 PM | | procedure are in the | | | | PDT | | results section. | + +--------+ + + + | RESP CARE THERAPY | Routin | 10/30/2007 | | Results for this | | | e | 6:41 PM | | procedure are in the | | | | PDT | | results section. | + +--------+ + + + | SPECIFIC GRAVITY, | Routin | 10/30/2007 | | Results for this | | BODY FLUID | e | 4:05 PM | | procedure are in the | | | | PDT | | results section. | + +--------+ + + + | POTASSIUM, PLASMA | Urgent | 10/30/2007 | | Results for this | | | | 3:15 PM | | procedure are in the | | | | PDT | | results section. | + +--------+ + + + | POTASSIUM, PLASMA | Urgent | 10/30/2007 | | Results for this | | | | 3:15 PM | | procedure are in the | | | | PDT | | results section. | + +--------+ + + + | SODIUM, PLASMA | Urgent | 10/30/2007 | | Results for this | | | | 3:15 PM | | procedure are in the | | | | PDT | | results section. | + +--------+ + + + | RESP CARE THERAPY | Routin | 10/30/2007 | | Results for this | | | e | 2:55 PM | | procedure are in the | | | | PDT | | results section. | + +--------+ + + + | SPECIFIC GRAVITY, | Routin | 10/30/2007 | | Results for this | | BODY FLUID | e | 10:05 AM | | procedure are in the | | | | PDT | | results section. | + +--------+ + + + | RESP CARE THERAPY | Routin | 10/30/2007 | | Results for this | | | e | 9:00 AM | | procedure are in the | | | | PDT | | results section. | + +--------+ + + + | RENAL FUNCTION SET | Urgent | 10/30/2007 | | Results for this | | (NA,K,CL,CO2,BUN,CRE | | 2:20 AM | | procedure are in the | | AT,GLUC,CA,PHOS,ALB | | PDT | | results section. | | ) | | | | | + +--------+ + + + | CBC ONLY | Urgent | 10/30/2007 | | Results for this | | | | 2:20 AM | | procedure are in the | | | | PDT | | results section. | + +--------+ + + + | MAGNESIUM, PLASMA | Urgent | 10/30/2007 | | Results for this | | | | 2:20 AM | | procedure are in the | | | | PDT | | results section. | + +--------+ + + + | UA DIPSTICK ONLY | Routin | 10/30/2007 | | Results for this | | | e | 2:10 AM | | procedure are in the | | | | PDT | | results section. | + +--------+ + + + | SPECIFIC GRAVITY, | Routin | 10/30/2007 | | Results for this | | BODY FLUID | e | 2:10 AM | | procedure are in the | | | | PDT | | results section. | + +--------+ + + + | VASC LAB PORTABLE | Routin | 10/30/2007 | | Results for this | | TRANSCRANIAL DOPPLER | e | 1:44 AM | | procedure are in the | | COMPLETE | | PDT | | results section. | + +--------+ + + + | RESP CARE THERAPY | Routin | 10/29/2007 | | Results for this | | | e | 10:34 PM | | procedure are in the | | | | PDT | | results section. | + +--------+ + + + | SPECIFIC GRAVITY, | Routin | 10/29/2007 | | Results for this | | BODY FLUID | e | 10:05 PM | | procedure are in the | | | | PDT | | results section. | + +--------+ + + + | POTASSIUM, PLASMA | Urgent | 10/29/2007 | | Results for this | | | | 5:00 PM | | procedure are in the | | | | PDT | | results section. | + +--------+ + + + | POTASSIUM, PLASMA | Urgent | 10/29/2007 | | Results for this | | | | 5:00 PM | | procedure are in the | | | | PDT | | results section. | + +--------+ + + + | SODIUM, PLASMA | Urgent | 10/29/2007 | | Results for this | | | | 5:00 PM | | procedure are in the | | | | PDT | | results section. | + +--------+ + + + | SPECIFIC GRAVITY, | Routin | 10/29/2007 | | Results for this | | BODY FLUID | e | 4:05 PM | | procedure are in the | | | | PDT | | results section. | + +--------+ + + + | RESP CARE THERAPY | Routin | 10/29/2007 | | Results for this | | | e | 1:10 PM | | procedure are in the | | | | PDT | | results section. | + +--------+ + + + | SPECIFIC GRAVITY, | Routin | 10/29/2007 | | Results for this | | BODY FLUID | e | 10:05 AM | | procedure are in the | | | | PDT | | results section. | + +--------+ + + + | RESP CARE THERAPY | Routin | 10/29/2007 | | Results for this | | | e | 9:11 AM | | procedure are in the | | | | PDT | | results section. | + +--------+ + + + | VASC LAB PORTABLE | Routin | 10/29/2007 | | Results for this | | TRANSCRANIAL DOPPLER | e | 8:10 AM | | procedure are in the | | COMPLETE | | PDT | | results section. | + +--------+ + + + | CT HEAD WO CONTRAST | Routin | 10/29/2007 | | Results for this | | | e | 3:58 AM | | procedure are in the | | | | PDT | | results section. | + +--------+ + + + | RESP CARE THERAPY | Routin | 10/29/2007 | | Results for this | | | e | 3:51 AM | | procedure are in the | | | | PDT | | results section. | + +--------+ + + + | RENAL FUNCTION SET | Urgent | 10/29/2007 | | Results for this | | (NA,K,CL,CO2,BUN,CRE | | 12:01 AM | | procedure are in the | | AT,GLUC,CA,PHOS,ALB | | PDT | | results section. | | ) | | | | | + +--------+ + + + | CBC ONLY | Urgent | 10/29/2007 | | Results for this | | | | 12:01 AM | | procedure are in the | | | | PDT | | results section. | + +--------+ + + + | MAGNESIUM, PLASMA | Urgent | 10/29/2007 | | Results for this | | | | 12:01 AM | | procedure are in the | | | | PDT | | results section. | + +--------+ + + + | SPECIFIC GRAVITY, | Routin | 10/29/2007 | | Results for this | | BODY FLUID | e | 12:01 AM | | procedure are in the | | | | PDT | | results section. | + +--------+ + + + | UA, DIPSTICK ONLY | Routin | 10/28/2007 | | Results for this | | | e | 10:05 PM | | procedure are in the | | | | PDT | | results section. | + +--------+ + + + | SPECIFIC GRAVITY, | Routin | 10/28/2007 | | Results for this | | BODY FLUID | e | 10:05 PM | | procedure are in the | | | | PDT | | results section. | + +--------+ + + + | RESP CARE THERAPY | Routin | 10/28/2007 | | Results for this | | | e | 9:34 PM | | procedure are in the | | | | PDT | | results section. | + +--------+ + + + | POTASSIUM, PLASMA | Urgent | 10/28/2007 | | Results for this | | | | 5:00 PM | | procedure are in the | | | | PDT | | results section. | + +--------+ + + + | SODIUM, PLASMA | Urgent | 10/28/2007 | | Results for this | | | | 5:00 PM | | procedure are in the | | | | PDT | | results section. | + +--------+ + + + | SODIUM, PLASMA | Urgent | 10/28/2007 | | Results for this | | | | 5:00 PM | | procedure are in the | | | | PDT | | results section. | + +--------+ + + + | SPECIFIC GRAVITY, | Routin | 10/28/2007 | | Results for this | | BODY FLUID | e | 4:05 PM | | procedure are in the | | | | PDT | | results section. | + +--------+ + + + | RESP CARE THERAPY | Routin | 10/28/2007 | | Results for this | | | e | 1:12 PM | | procedure are in the | | | | PDT | | results section. | + +--------+ + + + | SPECIFIC GRAVITY | Perman | 10/28/2007 | | Results for this | | URINE, POC RESULT | ent/Fr | 11:00 AM | | procedure are in the | | | esh | PDT | | results section. | + +--------+ + + + | SPECIFIC GRAVITY, | Routin | 10/28/2007 | | Results for this | | BODY FLUID | e | 10:05 AM | | procedure are in the | | | | PDT | | results section. | + +--------+ + + + | RESP CARE THERAPY | Routin | 10/28/2007 | | Results for this | | | e | 9:11 AM | | procedure are in the | | | | PDT | | results section. | + +--------+ + + + | CSF INFO PANEL | Urgent | 10/28/2007 | | Results for this | | | | 9:11 AM | | procedure are in the | | | | PDT | | results section. | + +--------+ + + + | GLUCOSE, CSF | Urgent | 10/28/2007 | | Results for this | | | | 9:11 AM | | procedure are in the | | | | PDT | | results section. | + +--------+ + + + | CELL COUNT DIFF, CSF | Urgent | 10/28/2007 | | Results for this | | | | 9:11 AM | | procedure are in the | | | | PDT | | results section. | + +--------+ + + + | CULTURE, CSF BACTI | Urgent | 10/28/2007 | | Results for this | | | | 9:11 AM | | procedure are in the | | | | PDT | | results section. | + +--------+ + + + | GRAM SMEAR ONLY, | Routin | 10/28/2007 | | Results for this | | STAT | e | 9:11 AM | | procedure are in the | | | | PDT | | results section. | + +--------+ + + + | PROTEIN, CSF | Urgent | 10/28/2007 | | Results for this | | | | 9:11 AM | | procedure are in the | | | | PDT | | results section. | + +--------+ + + + | VASC LAB PORTABLE | Routin | 10/28/2007 | | Results for this | | TRANSCRANIAL DOPPLER | e | 8:14 AM | | procedure are in the | | COMPLETE | | PDT | | results section. | + +--------+ + + + | X-RAY PORTABLE CHEST | Routin | 10/28/2007 | | Results for this | | 1 VIEW | e | 8:09 AM | | procedure are in the | | | | PDT | | results section. | + +--------+ + + + | POTASSIUM, PLASMA | Urgent | 10/28/2007 | | Results for this | | | | 8:00 AM | | procedure are in the | | | | PDT | | results section. | + +--------+ + + + | SODIUM, PLASMA | Urgent | 10/28/2007 | | Results for this | | | | 8:00 AM | | procedure are in the | | | | PDT | | results section. | + +--------+ + + + | SODIUM, PLASMA | Urgent | 10/28/2007 | | Results for this | | | | 8:00 AM | | procedure are in the | | | | PDT | | results section. | + +--------+ + + + | RESP CARE THERAPY | Routin | 10/28/2007 | | Results for this | | | e | 5:05 AM | | procedure are in the | | | | PDT | | results section. | + +--------+ + + + | SPECIFIC GRAVITY | Perman | 10/28/2007 | | Results for this | | URINE, POC RESULT | ent/Fr | 5:01 AM | | procedure are in the | | | esh | PDT | | results section. | + +--------+ + + + | SPECIFIC GRAVITY | Perman | 10/28/2007 | | Results for this | | URINE, POC RESULT | ent/Fr | 3:21 AM | | procedure are in the | | | esh | PDT | | results section. | + +--------+ + + + | CT HEAD WO CONTRAST | Routin | 10/28/2007 | | Results for this | | | e | 1:05 AM | | procedure are in the | | | | PDT | | results section. | + +--------+ + + + | RENAL FUNCTION SET | Urgent | 10/28/2007 | | Results for this | | (NA,K,CL,CO2,BUN,CRE | | 12:01 AM | | procedure are in the | | AT,GLUC,CA,PHOS,ALB | | PDT | | results section. | | ) | | | | | + +--------+ + + + | CBC ONLY | Urgent | 10/28/2007 | | Results for this | | | | 12:01 AM | | procedure are in the | | | | PDT | | results section. | + +--------+ + + + | MAGNESIUM, PLASMA | Urgent | 10/28/2007 | | Results for this | | | | 12:01 AM | | procedure are in the | | | | PDT | | results section. | + +--------+ + + + | SPECIFIC GRAVITY, | Routin | 10/28/2007 | | Results for this | | BODY FLUID | e | 12:01 AM | | procedure are in the | | | | PDT | | results section. | + +--------+ + + + | SPECIFIC GRAVITY, | Routin | 10/27/2007 | | Results for this | | BODY FLUID | e | 10:05 PM | | procedure are in the | | | | PDT | | results section. | + +--------+ + + + | RESP CARE THERAPY | Routin | 10/27/2007 | | Results for this | | | e | 10:00 PM | | procedure are in the | | | | PDT | | results section. | + +--------+ + + + | X-RAY PORTABLE CHEST | Routin | 10/27/2007 | | Results for this | | 1 VIEW | e | 5:42 PM | | procedure are in the | | | | PDT | | results section. | + +--------+ + + + | RESP CARE THERAPY | Routin | 10/27/2007 | | Results for this | | | e | 5:10 PM | | procedure are in the | | | | PDT | | results section. | + +--------+ + + + | RESP CARE THERAPY | Routin | 10/27/2007 | | Results for this | | | e | 5:10 PM | | procedure are in the | | | | PDT | | results section. | + +--------+ + + + | SPECIFIC GRAVITY, | Routin | 10/27/2007 | | Results for this | | BODY FLUID | e | 4:05 PM | | procedure are in the | | | | PDT | | results section. | + +--------+ + + + | CULTURE, SPUTUM | Urgent | 10/27/2007 | | Results for this | | | | 3:57 PM | | procedure are in the | | | | PDT | | results section. | + +--------+ + + + | CULTURE, BLOOD BACTI | Urgent | 10/27/2007 | | Results for this | | & YEAST | | 3:57 PM | | procedure are in the | | | | PDT | | results section. | + +--------+ + + + | CULTURE, URINE BACTI | Urgent | 10/27/2007 | | Results for this | | | | 3:57 PM | | procedure are in the | | | | PDT | | results section. | + +--------+ + + + | POTASSIUM, PLASMA | Urgent | 10/27/2007 | | Results for this | | | | 3:32 PM | | procedure are in the | | | | PDT | | results section. | + +--------+ + + + | POTASSIUM, PLASMA | Urgent | 10/27/2007 | | Results for this | | | | 3:31 PM | | procedure are in the | | | | PDT | | results section. | + +--------+ + + + | SODIUM, PLASMA | Urgent | 10/27/2007 | | Results for this | | | | 3:31 PM | | procedure are in the | | | | PDT | | results section. | + +--------+ + + + | URINE, MICROSCOPIC | Urgent | 10/27/2007 | | Results for this | | EXAM | | 3:30 PM | | procedure are in the | | | | PDT | | results section. | + +--------+ + + + | URINE SCREEN FOR | Urgent | 10/27/2007 | | Results for this | | CULTURE | | 3:30 PM | | procedure are in the | | | | PDT | | results section. | + +--------+ + + + | URINE SCREEN FOR | Urgent | 10/27/2007 | | Results for this | | CULTURE | | 3:30 PM | | procedure are in the | | | | PDT | | results section. | + +--------+ + + + | SPECIFIC GRAVITY | Perman | 10/27/2007 | | Results for this | | URINE, POC RESULT | ent/Fr | 3:00 PM | | procedure are in the | | | esh | PDT | | results section. | + +--------+ + + + | RESP CARE THERAPY | Routin | 10/27/2007 | | Results for this | | | e | 1:00 PM | | procedure are in the | | | | PDT | | results section. | + +--------+ + + + | SPECIFIC GRAVITY, | Routin | 10/27/2007 | | Results for this | | BODY FLUID | e | 10:05 AM | | procedure are in the | | | | PDT | | results section. | + +--------+ + + + | SPECIFIC GRAVITY | Perman | 10/27/2007 | | Results for this | | URINE, POC RESULT | ent/Fr | 9:00 AM | | procedure are in the | | | esh | PDT | | results section. | + +--------+ + + + | RESP CARE THERAPY | Routin | 10/27/2007 | | Results for this | | | e | 9:00 AM | | procedure are in the | | | | PDT | | results section. | + +--------+ + + + | POTASSIUM, PLASMA | Urgent | 10/27/2007 | | Results for this | | | | 8:30 AM | | procedure are in the | | | | PDT | | results section. | + +--------+ + + + | POTASSIUM, PLASMA | Urgent | 10/27/2007 | | Results for this | | | | 8:30 AM | | procedure are in the | | | | PDT | | results section. | + +--------+ + + + | SODIUM, PLASMA | Urgent | 10/27/2007 | | Results for this | | | | 8:30 AM | | procedure are in the | | | | PDT | | results section. | + +--------+ + + + | CSF INFO PANEL | Urgent | 10/27/2007 | | Results for this | | | | 8:22 AM | | procedure are in the | | | | PDT | | results section. | + +--------+ + + + | GLUCOSE, CSF | Urgent | 10/27/2007 | | Results for this | | | | 8:22 AM | | procedure are in the | | | | PDT | | results section. | + +--------+ + + + | CELL COUNT DIFF, CSF | Urgent | 10/27/2007 | | Results for this | | | | 8:22 AM | | procedure are in the | | | | PDT | | results section. | + +--------+ + + + | CULTURE, CSF BACTI | Urgent | 10/27/2007 | | Results for this | | | | 8:22 AM | | procedure are in the | | | | PDT | | results section. | + +--------+ + + + | GRAM SMEAR ONLY, | Routin | 10/27/2007 | | Results for this | | STAT | e | 8:22 AM | | procedure are in the | | | | PDT | | results section. | + +--------+ + + + | PROTEIN, CSF | Urgent | 10/27/2007 | | Results for this | | | | 8:22 AM | | procedure are in the | | | | PDT | | results section. | + +--------+ + + + | VASC LAB PORTABLE | Routin | 10/27/2007 | | Results for this | | TRANSCRANIAL DOPPLER | e | 1:37 AM | | procedure are in the | | COMPLETE | | PDT | | results section. | + +--------+ + + + | RESP CARE THERAPY | Routin | 10/27/2007 | | Results for this | | | e | 1:21 AM | | procedure are in the | | | | PDT | | results section. | + +--------+ + + + | RENAL FUNCTION SET | Urgent | 10/27/2007 | | Results for this | | (NA,K,CL,CO2,BUN,CRE | | 1:20 AM | | procedure are in the | | AT,GLUC,CA,PHOS,ALB | | PDT | | results section. | | ) | | | | | + +--------+ + + + | CBC ONLY | Urgent | 10/27/2007 | | Results for this | | | | 1:20 AM | | procedure are in the | | | | PDT | | results section. | + +--------+ + + + | MAGNESIUM, PLASMA | Urgent | 10/27/2007 | | Results for this | | | | 1:20 AM | | procedure are in the | | | | PDT | | results section. | + +--------+ + + + | UA, DIPSTICK ONLY | Routin | 10/27/2007 | | Results for this | | | e | 12:01 AM | | procedure are in the | | | | PDT | | results section. | + +--------+ + + + | SPECIFIC GRAVITY | Perman | 10/27/2007 | | Results for this | | URINE, POC RESULT | ent/Fr | | | procedure are in the | | | esh | | | results section. | + +--------+ + + + | SPECIFIC GRAVITY, | Routin | 10/26/2007 | | Results for this | | BODY FLUID | e | 10:05 PM | | procedure are in the | | | | PDT | | results section. | + +--------+ + + + | RESP CARE THERAPY | Routin | 10/26/2007 | | Results for this | | | e | 8:30 PM | | procedure are in the | | | | PDT | | results section. | + +--------+ + + + | UA DIPSTICK ONLY, | Perman | 10/26/2007 | | Results for this | | POC RESULT | ent/Fr | 5:00 PM | | procedure are in the | | | esh | PDT | | results section. | + +--------+ + + + | POTASSIUM, PLASMA | Urgent | 10/26/2007 | | Results for this | | | | 5:00 PM | | procedure are in the | | | | PDT | | results section. | + +--------+ + + + | SODIUM, PLASMA | Urgent | 10/26/2007 | | Results for this | | | | 5:00 PM | | procedure are in the | | | | PDT | | results section. | + +--------+ + + + | SODIUM, PLASMA | Urgent | 10/26/2007 | | Results for this | | | | 5:00 PM | | procedure are in the | | | | PDT | | results section. | + +--------+ + + + | RESP CARE THERAPY | Routin | 10/26/2007 | | Results for this | | | e | 4:30 PM | | procedure are in the | | | | PDT | | results section. | + +--------+ + + + | SPECIFIC GRAVITY, | Routin | 10/26/2007 | | Results for this | | BODY FLUID | e | 4:05 PM | | procedure are in the | | | | PDT | | results section. | + +--------+ + + + | RESP CARE THERAPY | Routin | 10/26/2007 | | Results for this | | | e | 1:00 PM | | procedure are in the | | | | PDT | | results section. | + +--------+ + + + | SPECIFIC GRAVITY, | Routin | 10/26/2007 | | Results for this | | BODY FLUID | e | 10:05 AM | | procedure are in the | | | | PDT | | results section. | + +--------+ + + + | UA DIPSTICK ONLY, | Perman | 10/26/2007 | | Results for this | | POC RESULT | ent/Fr | 10:00 AM | | procedure are in the | | | esh | PDT | | results section. | + +--------+ + + + | POTASSIUM, PLASMA | Urgent | 10/26/2007 | | Results for this | | | | 8:44 AM | | procedure are in the | | | | PDT | | results section. | + +--------+ + + + | POTASSIUM, PLASMA | Urgent | 10/26/2007 | | Results for this | | | | 8:43 AM | | procedure are in the | | | | PDT | | results section. | + +--------+ + + + | SODIUM, PLASMA | Urgent | 10/26/2007 | | Results for this | | | | 8:43 AM | | procedure are in the | | | | PDT | | results section. | + +--------+ + + + | RESP CARE THERAPY | Routin | 10/26/2007 | | Results for this | | | e | 7:45 AM | | procedure are in the | | | | PDT | | results section. | + +--------+ + + + | X-RAY PORTABLE CHEST | Routin | 10/26/2007 | | Results for this | | 1 VIEW | e | 6:34 AM | | procedure are in the | | | | PDT | | results section. | + +--------+ + + + | SPECIFIC GRAVITY, | Routin | 10/26/2007 | | Results for this | | RANDOM URINE | e | 4:00 AM | | procedure are in the | | (REFRACTOMETER), POC | | PDT | | results section. | | IP ONLY | | | | | + +--------+ + + + | RESP CARE THERAPY | Routin | 10/26/2007 | | Results for this | | | e | 3:10 AM | | procedure are in the | | | | PDT | | results section. | + +--------+ + + + | VASC LAB PORTABLE | Routin | 10/26/2007 | | Results for this | | TRANSCRANIAL DOPPLER | e | 2:02 AM | | procedure are in the | | COMPLETE | | PDT | | results section. | + +--------+ + + + | RENAL FUNCTION SET | Urgent | 10/26/2007 | | Results for this | | (NA,K,CL,CO2,BUN,CRE | | 1:20 AM | | procedure are in the | | AT,GLUC,CA,PHOS,ALB | | PDT | | results section. | | ) | | | | | + +--------+ + + + | CBC ONLY | Urgent | 10/26/2007 | | Results for this | | | | 1:20 AM | | procedure are in the | | | | PDT | | results section. | + +--------+ + + + | MAGNESIUM, PLASMA | Urgent | 10/26/2007 | | Results for this | | | | 1:20 AM | | procedure are in the | | | | PDT | | results section. | + +--------+ + + + | RESP CARE THERAPY | Routin | 10/26/2007 | | Results for this | | | e | 12:27 AM | | procedure are in the | | | | PDT | | results section. | + +--------+ + + + | SPECIFIC GRAVITY, | Routin | 10/26/2007 | | Results for this | | BODY FLUID | e | 12:01 AM | | procedure are in the | | | | PDT | | results section. | + +--------+ + + + | RESP CARE THERAPY | Routin | 10/25/2007 | | Results for this | | | e | 11:44 PM | | procedure are in the | | | | PDT | | results section. | + +--------+ + + + | SPECIFIC GRAVITY, | Routin | 10/25/2007 | | Results for this | | RANDOM URINE | e | 11:00 PM | | procedure are in the | | (REFRACTOMETER), POC | | PDT | | results section. | | IP ONLY | | | | | + +--------+ + + + | SPECIFIC GRAVITY, | Routin | 10/25/2007 | | Results for this | | BODY FLUID | e | 10:05 PM | | procedure are in the | | | | PDT | | results section. | + +--------+ + + + | POTASSIUM, PLASMA | Urgent | 10/25/2007 | | Results for this | | | | 5:30 PM | | procedure are in the | | | | PDT | | results section. | + +--------+ + + + | SODIUM, PLASMA | Urgent | 10/25/2007 | | Results for this | | | | 5:30 PM | | procedure are in the | | | | PDT | | results section. | + +--------+ + + + | SODIUM, PLASMA | Urgent | 10/25/2007 | | Results for this | | | | 5:30 PM | | procedure are in the | | | | PDT | | results section. | + +--------+ + + + | RESP CARE THERAPY | Routin | 10/25/2007 | | Results for this | | | e | 5:10 PM | | procedure are in the | | | | PDT | | results section. | + +--------+ + + + | ANESTHESIA/SEDATION | | 10/25/2007 | | Results for this | | | | 4:45 PM | | procedure are in the | | | | PDT | | results section. | + +--------+ + + + | SPECIFIC GRAVITY, | Routin | 10/25/2007 | | Results for this | | BODY FLUID | e | 4:05 PM | | procedure are in the | | | | PDT | | results section. | + +--------+ + + + | SAL RAHMAN ONLY | Routin | 10/25/2007 | | Results for this | | | e | 2:15 PM | | procedure are in the | | | | PDT | | results section. | + +--------+ + + + | SPECIFIC GRAVITY, | Routin | 10/25/2007 | | Results for this | | BODY FLUID | e | 2:15 PM | | procedure are in the | | | | PDT | | results section. | + +--------+ + + + | RESP CARE THERAPY | Routin | 10/25/2007 | | Results for this | | | e | 1:20 PM | | procedure are in the | | | | PDT | | results section. | + +--------+ + + + | SPECIFIC GRAVITY, | Routin | 10/25/2007 | | Results for this | | BODY FLUID | e | 10:05 AM | | procedure are in the | | | | PDT | | results section. | + +--------+ + + + | POTASSIUM, PLASMA | Urgent | 10/25/2007 | | Results for this | | | | 10:00 AM | | procedure are in the | | | | PDT | | results section. | + +--------+ + + + | SODIUM, PLASMA | Urgent | 10/25/2007 | | Results for this | | | | 10:00 AM | | procedure are in the | | | | PDT | | results section. | + +--------+ + + + | SODIUM, PLASMA | Urgent | 10/25/2007 | | Results for this | | | | 10:00 AM | | procedure are in the | | | | PDT | | results section. | + +--------+ + + + | UA, DIPSTICK ONLY | Routin | 10/25/2007 | | Results for this | | | e | 9:30 AM | | procedure are in the | | | | PDT | | results section. | + +--------+ + + + | RESP CARE THERAPY | Routin | 10/25/2007 | | Results for this | | | e | 9:13 AM | | procedure are in the | | | | PDT | | results section. | + +--------+ + + + | RESP CARE THERAPY | Routin | 10/25/2007 | | Results for this | | | e | 5:21 AM | | procedure are in the | | | | PDT | | results section. | + +--------+ + + + | VASC LAB PORTABLE | Routin | 10/25/2007 | | Results for this | | TRANSCRANIAL DOPPLER | e | 2:03 AM | | procedure are in the | | COMPLETE | | PDT | | results section. | + +--------+ + + + | RENAL FUNCTION SET | Urgent | 10/25/2007 | | Results for this | | (NA,K,CL,CO2,BUN,CRE | | 2:00 AM | | procedure are in the | | AT,GLUC,CA,PHOS,ALB | | PDT | | results section. | | ) | | | | | + +--------+ + + + | CBC ONLY | Urgent | 10/25/2007 | | Results for this | | | | 2:00 AM | | procedure are in the | | | | PDT | | results section. | + +--------+ + + + | MAGNESIUM, PLASMA | Urgent | 10/25/2007 | | Results for this | | | | 2:00 AM | | procedure are in the | | | | PDT | | results section. | + +--------+ + + + | SPECIFIC GRAVITY, | Routin | 10/25/2007 | | Results for this | | BODY FLUID | e | 12:01 AM | | procedure are in the | | | | PDT | | results section. | + +--------+ + + + | UA DIPSTICK ONLY, | Perman | 10/24/2007 | | Results for this | | POC RESULT | ent/Fr | 11:00 PM | | procedure are in the | | | esh | PDT | | results section. | + +--------+ + + + | RESP CARE THERAPY | Routin | 10/24/2007 | | Results for this | | | e | 11:00 PM | | procedure are in the | | | | PDT | | results section. | + +--------+ + + + | RESP CARE THERAPY | Routin | 10/24/2007 | | Results for this | | | e | 8:09 PM | | procedure are in the | | | | PDT | | results section. | + +--------+ + + + | POTASSIUM, PLASMA | Urgent | 10/24/2007 | | Results for this | | | | 5:20 PM | | procedure are in the | | | | PDT | | results section. | + +--------+ + + + | SODIUM, PLASMA | Urgent | 10/24/2007 | | Results for this | | | | 5:20 PM | | procedure are in the | | | | PDT | | results section. | + +--------+ + + + | POTASSIUM, PLASMA | Urgent | 10/24/2007 | | Results for this | | | | 5:00 PM | | procedure are in the | | | | PDT | | results section. | + +--------+ + + + | SAL RAHMAN ONLY | Routin | 10/24/2007 | | Results for this | | | e | 5:00 PM | | procedure are in the | | | | PDT | | results section. | + +--------+ + + + | RESP CARE THERAPY | Routin | 10/24/2007 | | Results for this | | | e | 3:59 PM | | procedure are in the | | | | PDT | | results section. | + +--------+ + + + | X-RAY ABD LTD | Routin | 10/24/2007 | | Results for this | | FEEDING TUBE EVAL | e | 2:04 PM | | procedure are in the | | | | PDT | | results section. | + +--------+ + + + | CSF INFO PANEL | Urgent | 10/24/2007 | | Results for this | | | | 12:54 PM | | procedure are in the | | | | PDT | | results section. | + +--------+ + + + | GLUCOSE, CSF | Urgent | 10/24/2007 | | Results for this | | | | 12:54 PM | | procedure are in the | | | | PDT | | results section. | + +--------+ + + + | CELL COUNT DIFF, CSF | Urgent | 10/24/2007 | | Results for this | | | | 12:54 PM | | procedure are in the | | | | PDT | | results section. | + +--------+ + + + | CULTURE, CSF BACTI | Urgent | 10/24/2007 | | Results for this | | | | 12:54 PM | | procedure are in the | | | | PDT | | results section. | + +--------+ + + + | GRAM SMEAR ONLY, | Routin | 10/24/2007 | | Results for this | | STAT | e | 12:54 PM | | procedure are in the | | | | PDT | | results section. | + +--------+ + + + | PROTEIN, CSF | Urgent | 10/24/2007 | | Results for this | | | | 12:54 PM | | procedure are in the | | | | PDT | | results section. | + +--------+ + + + | CBC ONLY | Urgent | 10/24/2007 | | Results for this | | | | 12:00 PM | | procedure are in the | | | | PDT | | results section. | + +--------+ + + + | X-RAY ABD LTD | Routin | 10/24/2007 | | Results for this | | FEEDING TUBE EVAL | e | 11:57 AM | | procedure are in the | | | | PDT | | results section. | + +--------+ + + + | RESP CARE THERAPY | Routin | 10/24/2007 | | Results for this | | | e | 11:31 AM | | procedure are in the | | | | PDT | | results section. | + +--------+ + + + | SAL RAHMAN ONLY | Routin | 10/24/2007 | | Results for this | | | e | 11:01 AM | | procedure are in the | | | | PDT | | results section. | + +--------+ + + + | CBC ONLY | Urgent | 10/24/2007 | | Results for this | | | | 11:00 AM | | procedure are in the | | | | PDT | | results section. | + +--------+ + + + | POTASSIUM, PLASMA | Urgent | 10/24/2007 | | Results for this | | | | 8:50 AM | | procedure are in the | | | | PDT | | results section. | + +--------+ + + + | SODIUM, PLASMA | Urgent | 10/24/2007 | | Results for this | | | | 8:50 AM | | procedure are in the | | | | PDT | | results section. | + +--------+ + + + | SODIUM, PLASMA | Urgent | 10/24/2007 | | Results for this | | | | 8:50 AM | | procedure are in the | | | | PDT | | results section. | + +--------+ + + + | RESP CARE THERAPY | Routin | 10/24/2007 | | Results for this | | | e | 7:55 AM | | procedure are in the | | | | PDT | | results section. | + +--------+ + + + | PRODUCT - RED CELLS | Routin | 10/24/2007 | | Results for this | | LEUKOREDUCED | e | 6:54 AM | | procedure are in the | | | | PDT | | results section. | + +--------+ + + + | TYPE AND SCREEN | Urgent | 10/24/2007 | | Results for this | | | | 6:54 AM | | procedure are in the | | | | PDT | | results section. | + +--------+ + + + | PRODUCT - RED CELLS | Routin | 10/24/2007 | | Results for this | | LEUKOREDUCED | e | 6:39 AM | | procedure are in the | | | | PDT | | results section. | + +--------+ + + + | POTASSIUM, WHOLE | Routin | 10/24/2007 | | Results for this | | BLOOD | e | 5:24 AM | | procedure are in the | | | | PDT | | results section. | + +--------+ + + + | BLOOD GASES, | Urgent | 10/24/2007 | | Results for this | | ARTERIAL - LAB | | 5:24 AM | | procedure are in the | | | | PDT | | results section. | + +--------+ + + + | CO-OXIMETER PANEL, | Routin | 10/24/2007 | | Results for this | | BLOOD | e | 5:24 AM | | procedure are in the | | | | PDT | | results section. | + +--------+ + + + | VASC LAB PORTABLE | Routin | 10/24/2007 | | Results for this | | TRANSCRANIAL DOPPLER | e | 5:05 AM | | procedure are in the | | COMPLETE | | PDT | | results section. | + +--------+ + + + | LAURENCE FIGUEROA | Routin | 10/24/2007 | | Results for this | | | e | 2:00 AM | | procedure are in the | | | | PDT | | results section. | + +--------+ + + + | X-RAY PORTABLE CHEST | Routin | 10/24/2007 | | Results for this | | 1 VIEW | e | 12:51 AM | | procedure are in the | | | | PDT | | results section. | + +--------+ + + + | VANCOMYCIN, TROUGH | Routin | 10/24/2007 | | Results for this | | | e | 12:01 AM | | procedure are in the | | | | PDT | | results section. | + +--------+ + + + | UA, DIPSTICK ONLY | Routin | 10/24/2007 | | Results for this | | | e | 12:01 AM | | procedure are in the | | | | PDT | | results section. | + +--------+ + + + | RENAL FUNCTION SET | Urgent | 10/24/2007 | | Results for this | | (NA,K,CL,CO2,BUN,CRE | | 12:01 AM | | procedure are in the | | AT,GLUC,CA,PHOS,ALB | | PDT | | results section. | | ) | | | | | + +--------+ + + + | CBC ONLY | Urgent | 10/24/2007 | | Results for this | | | | 12:01 AM | | procedure are in the | | | | PDT | | results section. | + +--------+ + + + | MAGNESIUM, PLASMA | Urgent | 10/24/2007 | | Results for this | | | | 12:01 AM | | procedure are in the | | | | PDT | | results section. | + +--------+ + + + | SPECIFIC GRAVITY, | Routin | 10/24/2007 | | Results for this | | BODY FLUID | e | 12:01 AM | | procedure are in the | | | | PDT | | results section. | + +--------+ + + + | SPECIFIC GRAVITY, | Routin | 10/23/2007 | | Results for this | | BODY FLUID | e | 10:05 PM | | procedure are in the | | | | PDT | | results section. | + +--------+ + + + | POTASSIUM, PLASMA | Urgent | 10/23/2007 | | Results for this | | | | 5:57 PM | | procedure are in the | | | | PDT | | results section. | + +--------+ + + + | SODIUM, PLASMA | Urgent | 10/23/2007 | | Results for this | | | | 5:57 PM | | procedure are in the | | | | PDT | | results section. | + +--------+ + + + | SODIUM, PLASMA | Urgent | 10/23/2007 | | Results for this | | | | 5:57 PM | | procedure are in the | | | | PDT | | results section. | + +--------+ + + + | SPECIFIC GRAVITY, | Routin | 10/23/2007 | | Results for this | | BODY FLUID | e | 4:05 PM | | procedure are in the | | | | PDT | | results section. | + +--------+ + + + | POTASSIUM, PLASMA | Urgent | 10/23/2007 | | Results for this | | | | 10:12 AM | | procedure are in the | | | | PDT | | results section. | + +--------+ + + + | POTASSIUM, PLASMA | Urgent | 10/23/2007 | | Results for this | | | | 10:12 AM | | procedure are in the | | | | PDT | | results section. | + +--------+ + + + | SODIUM, PLASMA | Urgent | 10/23/2007 | | Results for this | | | | 10:12 AM | | procedure are in the | | | | PDT | | results section. | + +--------+ + + + | C. DIFFICILE TOXIN, | Urgent | 10/23/2007 | | Results for this | | W/REFLEX | | 10:08 AM | | procedure are in the | | CONFIRMATION IF | | PDT | | results section. | | INDETERMINATE | | | | | | RESULTS | | | | | + +--------+ + + + | SPECIFIC GRAVITY, | Routin | 10/23/2007 | | Results for this | | BODY FLUID | e | 10:05 AM | | procedure are in the | | | | PDT | | results section. | + +--------+ + + + | X-RAY PORTABLE CHEST | Urgent | 10/23/2007 | | Results for this | | 1 VIEW | | 9:49 AM | | procedure are in the | | | | PDT | | results section. | + +--------+ + + + | VASC LAB PORTABLE | Routin | 10/23/2007 | | Results for this | | TRANSCRANIAL DOPPLER | e | 8:12 AM | | procedure are in the | | COMPLETE | | PDT | | results section. | + +--------+ + + + | X-RAY ABD LTD | Routin | 10/23/2007 | | Results for this | | FEEDING TUBE EVAL | e | 8:12 AM | | procedure are in the | | | | PDT | | results section. | + +--------+ + + + | BLOOD GASES, | Urgent | 10/23/2007 | | Results for this | | ARTERIAL - LAB | | 1:16 AM | | procedure are in the | | | | PDT | | results section. | + +--------+ + + + | RENAL FUNCTION SET | Urgent | 10/23/2007 | | Results for this | | (NA,K,CL,CO2,BUN,CRE | | 1:05 AM | | procedure are in the | | AT,GLUC,CA,PHOS,ALB | | PDT | | results section. | | ) | | | | | + +--------+ + + + | CBC ONLY | Urgent | 10/23/2007 | | Results for this | | | | 1:05 AM | | procedure are in the | | | | PDT | | results section. | + +--------+ + + + | MAGNESIUM, PLASMA | Urgent | 10/23/2007 | | Results for this | | | | 1:05 AM | | procedure are in the | | | | PDT | | results section. | + +--------+ + + + | SPECIFIC GRAVITY, | Routin | 10/23/2007 | | Results for this | | BODY FLUID | e | 12:01 AM | | procedure are in the | | | | PDT | | results section. | + +--------+ + + + | SPECIFIC GRAVITY, | Routin | 10/22/2007 | | Results for this | | BODY FLUID | e | 10:05 PM | | procedure are in the | | | | PDT | | results section. | + +--------+ + + + | VANCOMYCIN, TROUGH | Routin | 10/22/2007 | | Results for this | | | e | 8:50 PM | | procedure are in the | | | | PDT | | results section. | + +--------+ + + + | X-RAY PORTABLE CHEST | Urgent | 10/22/2007 | | Results for this | | 1 VIEW | | 6:59 PM | | procedure are in the | | | | PDT | | results section. | + +--------+ + + + | X-RAY ABD TUBE OR | Routin | 10/22/2007 | | Results for this | | CATH EVAL W/O | e | 6:47 PM | | procedure are in the | | CONTRAST | | PDT | | results section. | + +--------+ + + + | BLOOD GASES, | Urgent | 10/22/2007 | | Results for this | | ARTERIAL - LAB | | 6:34 PM | | procedure are in the | | | | PDT | | results section. | + +--------+ + + + | POTASSIUM, PLASMA | Urgent | 10/22/2007 | | Results for this | | | | 6:09 PM | | procedure are in the | | | | PDT | | results section. | + +--------+ + + + | POTASSIUM, PLASMA | Urgent | 10/22/2007 | | Results for this | | | | 6:09 PM | | procedure are in the | | | | PDT | | results section. | + +--------+ + + + | SODIUM, PLASMA | Urgent | 10/22/2007 | | Results for this | | | | 6:09 PM | | procedure are in the | | | | PDT | | results section. | + +--------+ + + + | SAL RAHMAN ONLY | Routin | 10/22/2007 | | Results for this | | | e | 6:00 PM | | procedure are in the | | | | PDT | | results section. | + +--------+ + + + | SPECIFIC GRAVITY, | Routin | 10/22/2007 | | Results for this | | BODY FLUID | e | 6:00 PM | | procedure are in the | | | | PDT | | results section. | + +--------+ + + + | X-RAY CHEST 1 VIEW | Routin | 10/22/2007 | | Results for this | | | e | 3:26 PM | | procedure are in the | | | | PDT | | results section. | + +--------+ + + + | POTASSIUM, PLASMA | Urgent | 10/22/2007 | | Results for this | | | | 1:26 PM | | procedure are in the | | | | PDT | | results section. | + +--------+ + + + | POTASSIUM, PLASMA | Urgent | 10/22/2007 | | Results for this | | | | 1:26 PM | | procedure are in the | | | | PDT | | results section. | + +--------+ + + + | SODIUM, PLASMA | Urgent | 10/22/2007 | | Results for this | | | | 1:26 PM | | procedure are in the | | | | PDT | | results section. | + +--------+ + + + | SPECIFIC GRAVITY, | Routin | 10/22/2007 | | Results for this | | BODY FLUID | e | 10:05 AM | | procedure are in the | | | | PDT | | results section. | + +--------+ + + + | VASC LAB PORTABLE | Routin | 10/22/2007 | | Results for this | | TRANSCRANIAL DOPPLER | e | 8:17 AM | | procedure are in the | | COMPLETE | | PDT | | results section. | + +--------+ + + + | BLOOD GASES, | Urgent | 10/22/2007 | | Results for this | | ARTERIAL - LAB | | 7:42 AM | | procedure are in the | | | | PDT | | results section. | + +--------+ + + + | CSF INFO PANEL | Urgent | 10/22/2007 | | Results for this | | | | 6:21 AM | | procedure are in the | | | | PDT | | results section. | + +--------+ + + + | GLUCOSE, CSF | Urgent | 10/22/2007 | | Results for this | | | | 6:21 AM | | procedure are in the | | | | PDT | | results section. | + +--------+ + + + | CELL COUNT DIFF, CSF | Urgent | 10/22/2007 | | Results for this | | | | 6:21 AM | | procedure are in the | | | | PDT | | results section. | + +--------+ + + + | CULTURE, CSF BACTI | Urgent | 10/22/2007 | | Results for this | | | | 6:21 AM | | procedure are in the | | | | PDT | | results section. | + +--------+ + + + | GRAM SMEAR ONLY, | Routin | 10/22/2007 | | Results for this | | STAT | e | 6:21 AM | | procedure are in the | | | | PDT | | results section. | + +--------+ + + + | PROTEIN, CSF | Urgent | 10/22/2007 | | Results for this | | | | 6:21 AM | | procedure are in the | | | | PDT | | results section. | + +--------+ + + + | CULTURE, BLOOD BACTI | Urgent | 10/22/2007 | | Results for this | | & YEAST | | 5:00 AM | | procedure are in the | | | | PDT | | results section. | + +--------+ + + + | X-RAY PORTABLE CHEST | Urgent | 10/22/2007 | | Results for this | | 1 VIEW | | 3:26 AM | | procedure are in the | | | | PDT | | results section. | + +--------+ + + + | RENAL FUNCTION SET | Urgent | 10/22/2007 | | Results for this | | (NA,K,CL,CO2,BUN,CRE | | 2:45 AM | | procedure are in the | | AT,GLUC,CA,PHOS,ALB | | PDT | | results section. | | ) | | | | | + +--------+ + + + | CBC ONLY | Urgent | 10/22/2007 | | Results for this | | | | 2:45 AM | | procedure are in the | | | | PDT | | results section. | + +--------+ + + + | MAGNESIUM, PLASMA | Urgent | 10/22/2007 | | Results for this | | | | 2:45 AM | | procedure are in the | | | | PDT | | results section. | + +--------+ + + + | RESP CARE THERAPY | Routin | 10/22/2007 | | Results for this | | | e | 1:35 AM | | procedure are in the | | | | PDT | | results section. | + +--------+ + + + | BLOOD GASES, | Urgent | 10/22/2007 | | Results for this | | ARTERIAL - LAB | | 1:30 AM | | procedure are in the | | | | PDT | | results section. | + +--------+ + + + | SPECIFIC GRAVITY, | Routin | 10/22/2007 | | Results for this | | BODY FLUID | e | 12:01 AM | | procedure are in the | | | | PDT | | results section. | + +--------+ + + + | SPECIFIC GRAVITY, | Routin | 10/21/2007 | | Results for this | | BODY FLUID | e | 10:05 PM | | procedure are in the | | | | PDT | | results section. | + +--------+ + + + | BLOOD GASES, | Urgent | 10/21/2007 | | Results for this | | ARTERIAL - LAB | | 10:00 PM | | procedure are in the | | | | PDT | | results section. | + +--------+ + + + | RESP CARE THERAPY | Routin | 10/21/2007 | | Results for this | | | e | 9:20 PM | | procedure are in the | | | | PDT | | results section. | + +--------+ + + + | X-RAY PORTABLE CHEST | Routin | 10/21/2007 | | Results for this | | 1 VIEW | e | 8:58 PM | | procedure are in the | | | | PDT | | results section. | + +--------+ + + + | POTASSIUM, PLASMA | Urgent | 10/21/2007 | | Results for this | | | | 8:51 PM | | procedure are in the | | | | PDT | | results section. | + +--------+ + + + | POTASSIUM, PLASMA | Urgent | 10/21/2007 | | Results for this | | | | 8:51 PM | | procedure are in the | | | | PDT | | results section. | + +--------+ + + + | SODIUM, PLASMA | Urgent | 10/21/2007 | | Results for this | | | | 8:51 PM | | procedure are in the | | | | PDT | | results section. | + +--------+ + + + | RESP CARE THERAPY | Routin | 10/21/2007 | | Results for this | | | e | 5:00 PM | | procedure are in the | | | | PDT | | results section. | + +--------+ + + + | SAL RAHMAN ONLY | Routin | 10/21/2007 | | Results for this | | | e | 4:05 PM | | procedure are in the | | | | PDT | | results section. | + +--------+ + + + | SPECIFIC GRAVITY, | Routin | 10/21/2007 | | Results for this | | BODY FLUID | e | 4:05 PM | | procedure are in the | | | | PDT | | results section. | + +--------+ + + + | POTASSIUM, PLASMA | Urgent | 10/21/2007 | | Results for this | | | | 11:42 AM | | procedure are in the | | | | PDT | | results section. | + +--------+ + + + | POTASSIUM, PLASMA | Urgent | 10/21/2007 | | Results for this | | | | 11:42 AM | | procedure are in the | | | | PDT | | results section. | + +--------+ + + + | SODIUM, PLASMA | Urgent | 10/21/2007 | | Results for this | | | | 11:42 AM | | procedure are in the | | | | PDT | | results section. | + +--------+ + + + | RESP CARE THERAPY | Routin | 10/21/2007 | | Results for this | | | e | 11:14 AM | | procedure are in the | | | | PDT | | results section. | + +--------+ + + + | RESP CARE THERAPY | Routin | 10/21/2007 | | Results for this | | | e | 11:00 AM | | procedure are in the | | | | PDT | | results section. | + +--------+ + + + | SPECIFIC GRAVITY, | Routin | 10/21/2007 | | Results for this | | BODY FLUID | e | 10:05 AM | | procedure are in the | | | | PDT | | results section. | + +--------+ + + + | RESP CARE THERAPY | Routin | 10/21/2007 | | Results for this | | | e | 8:00 AM | | procedure are in the | | | | PDT | | results section. | + +--------+ + + + | VASC LAB VENOUS | Routin | 10/21/2007 | | Results for this | | DUPLEX LOWER | e | 8:00 AM | | procedure are in the | | EXTREMITY BILAT COMP | | PDT | | results section. | + +--------+ + + + | VASC LAB PORTABLE | Routin | 10/21/2007 | | Results for this | | TRANSCRANIAL DOPPLER | e | 7:58 AM | | procedure are in the | | COMPLETE | | PDT | | results section. | + +--------+ + + + | RESP CARE THERAPY | Routin | 10/21/2007 | | Results for this | | | e | 5:00 AM | | procedure are in the | | | | PDT | | results section. | + +--------+ + + + | RESP CARE THERAPY | Routin | 10/21/2007 | | Results for this | | | e | 4:00 AM | | procedure are in the | | | | PDT | | results section. | + +--------+ + + + | BLOOD GASES, | Routin | 10/21/2007 | | Results for this | | ARTERIAL - LAB | e | 3:00 AM | | procedure are in the | | | | PDT | | results section. | + +--------+ + + + | UA, DIPSTICK ONLY | Routin | 10/21/2007 | | Results for this | | | e | 2:30 AM | | procedure are in the | | | | PDT | | results section. | + +--------+ + + + | SPECIFIC GRAVITY, | Routin | 10/21/2007 | | Results for this | | BODY FLUID | e | 2:30 AM | | procedure are in the | | | | PDT | | results section. | + +--------+ + + + | RENAL FUNCTION SET | Urgent | 10/21/2007 | | Results for this | | (NA,K,CL,CO2,BUN,CRE | | 2:00 AM | | procedure are in the | | AT,GLUC,CA,PHOS,ALB | | PDT | | results section. | | ) | | | | | + +--------+ + + + | CBC ONLY | Urgent | 10/21/2007 | | Results for this | | | | 2:00 AM | | procedure are in the | | | | PDT | | results section. | + +--------+ + + + | MAGNESIUM, PLASMA | Urgent | 10/21/2007 | | Results for this | | | | 2:00 AM | | procedure are in the | | | | PDT | | results section. | + +--------+ + + + | RESP CARE THERAPY | Routin | 10/21/2007 | | Results for this | | | e | 1:00 AM | | procedure are in the | | | | PDT | | results section. | + +--------+ + + + | X-RAY PORTABLE CHEST | Urgent | 10/20/2007 | | Results for this | | 1 VIEW | | 11:15 PM | | procedure are in the | | | | PDT | | results section. | + +--------+ + + + | SPECIFIC GRAVITY, | Routin | 10/20/2007 | | Results for this | | BODY FLUID | e | 10:05 PM | | procedure are in the | | | | PDT | | results section. | + +--------+ + + + | POTASSIUM, PLASMA | Urgent | 10/20/2007 | | Results for this | | | | 8:00 PM | | procedure are in the | | | | PDT | | results section. | + +--------+ + + + | POTASSIUM, PLASMA | Urgent | 10/20/2007 | | Results for this | | | | 8:00 PM | | procedure are in the | | | | PDT | | results section. | + +--------+ + + + | SODIUM, PLASMA | Urgent | 10/20/2007 | | Results for this | | | | 8:00 PM | | procedure are in the | | | | PDT | | results section. | + +--------+ + + + | ANESTHESIA/SEDATION | | 10/20/2007 | | Results for this | | | | 7:53 PM | | procedure are in the | | | | PDT | | results section. | + +--------+ + + + | SPECIFIC GRAVITY, | Routin | 10/20/2007 | | Results for this | | BODY FLUID | e | 4:05 PM | | procedure are in the | | | | PDT | | results section. | + +--------+ + + + | ECHO PROCEDURE | | 10/20/2007 | | Results for this | | | | 12:40 PM | | procedure are in the | | | | PDT | | results section. | + +--------+ + + + | POTASSIUM, PLASMA | Urgent | 10/20/2007 | | Results for this | | | | 11:45 AM | | procedure are in the | | | | PDT | | results section. | + +--------+ + + + | POTASSIUM, PLASMA | Urgent | 10/20/2007 | | Results for this | | | | 11:45 AM | | procedure are in the | | | | PDT | | results section. | + +--------+ + + + | SODIUM, PLASMA | Urgent | 10/20/2007 | | Results for this | | | | 11:45 AM | | procedure are in the | | | | PDT | | results section. | + +--------+ + + + | SPECIFIC GRAVITY, | Routin | 10/20/2007 | | Results for this | | BODY FLUID | e | 10:05 AM | | procedure are in the | | | | PDT | | results section. | + +--------+ + + + | POTASSIUM, PLASMA | Urgent | 10/20/2007 | | Results for this | | | | 6:13 AM | | procedure are in the | | | | PDT | | results section. | + +--------+ + + + | POTASSIUM, PLASMA | Urgent | 10/20/2007 | | Results for this | | | | 6:13 AM | | procedure are in the | | | | PDT | | results section. | + +--------+ + + + | SODIUM, PLASMA | Urgent | 10/20/2007 | | Results for this | | | | 6:13 AM | | procedure are in the | | | | PDT | | results section. | + +--------+ + + + | VASC LAB PORTABLE | Routin | 10/20/2007 | | Results for this | | TRANSCRANIAL DOPPLER | e | 2:23 AM | | procedure are in the | | COMPLETE | | PDT | | results section. | + +--------+ + + + | RESP CARE THERAPY | Routin | 10/20/2007 | | Results for this | | | e | 1:05 AM | | procedure are in the | | | | PDT | | results section. | + +--------+ + + + | RENAL FUNCTION SET | Urgent | 10/20/2007 | | Results for this | | (NA,K,CL,CO2,BUN,CRE | | 1:00 AM | | procedure are in the | | AT,GLUC,CA,PHOS,ALB | | PDT | | results section. | | ) | | | | | + +--------+ + + + | CBC ONLY | Urgent | 10/20/2007 | | Results for this | | | | 1:00 AM | | procedure are in the | | | | PDT | | results section. | + +--------+ + + + | MAGNESIUM, PLASMA | Urgent | 10/20/2007 | | Results for this | | | | 1:00 AM | | procedure are in the | | | | PDT | | results section. | + +--------+ + + + | SPECIFIC GRAVITY, | Routin | 10/20/2007 | | Results for this | | BODY FLUID | e | 12:01 AM | | procedure are in the | | | | PDT | | results section. | + +--------+ + + + | SPECIFIC GRAVITY, | Routin | 10/19/2007 | | Results for this | | BODY FLUID | e | 10:05 PM | | procedure are in the | | | | PDT | | results section. | + +--------+ + + + | POTASSIUM, PLASMA | Urgent | 10/19/2007 | | Results for this | | | | 5:53 PM | | procedure are in the | | | | PDT | | results section. | + +--------+ + + + | POTASSIUM, PLASMA | Urgent | 10/19/2007 | | Results for this | | | | 5:53 PM | | procedure are in the | | | | PDT | | results section. | + +--------+ + + + | SODIUM, PLASMA | Urgent | 10/19/2007 | | Results for this | | | | 5:53 PM | | procedure are in the | | | | PDT | | results section. | + +--------+ + + + | ANESTHESIA/SEDATION | | 10/19/2007 | | Results for this | | | | 5:52 PM | | procedure are in the | | | | PDT | | results section. | + +--------+ + + + | SPECIFIC GRAVITY, | Routin | 10/19/2007 | | Results for this | | BODY FLUID | e | 4:05 PM | | procedure are in the | | | | PDT | | results section. | + +--------+ + + + | POTASSIUM, PLASMA | Urgent | 10/19/2007 | | Results for this | | | | 11:54 AM | | procedure are in the | | | | PDT | | results section. | + +--------+ + + + | SODIUM, PLASMA | Urgent | 10/19/2007 | | Results for this | | | | 11:54 AM | | procedure are in the | | | | PDT | | results section. | + +--------+ + + + | SODIUM, PLASMA | Urgent | 10/19/2007 | | Results for this | | | | 11:54 AM | | procedure are in the | | | | PDT | | results section. | + +--------+ + + + | SPECIFIC GRAVITY, | Routin | 10/19/2007 | | Results for this | | BODY FLUID | e | 10:59 AM | | procedure are in the | | | | PDT | | results section. | + +--------+ + + + | CEREBRAL 3 VESSELS | Routin | 10/19/2007 | | Results for this | | | e | 8:53 AM | | procedure are in the | | | | PDT | | results section. | + +--------+ + + + | TRANSTHORACIC | Routin | 10/19/2007 | | | | ECHOCARDIOGRAM, | e | 7:28 AM | | | | ADULT | | PDT | | | + +--------+ + + + | CSF INFO PANEL | Urgent | 10/19/2007 | | Results for this | | | | 6:01 AM | | procedure are in the | | | | PDT | | results section. | + +--------+ + + + | GLUCOSE, CSF | Urgent | 10/19/2007 | | Results for this | | | | 6:01 AM | | procedure are in the | | | | PDT | | results section. | + +--------+ + + + | CELL COUNT DIFF, CSF | Urgent | 10/19/2007 | | Results for this | | | | 6:01 AM | | procedure are in the | | | | PDT | | results section. | + +--------+ + + + | CULTURE, CSF BACTI | Urgent | 10/19/2007 | | Results for this | | | | 6:01 AM | | procedure are in the | | | | PDT | | results section. | + +--------+ + + + | GRAM SMEAR ONLY, | Routin | 10/19/2007 | | Results for this | | STAT | e | 6:01 AM | | procedure are in the | | | | PDT | | results section. | + +--------+ + + + | PROTEIN, CSF | Urgent | 10/19/2007 | | Results for this | | | | 6:01 AM | | procedure are in the | | | | PDT | | results section. | + +--------+ + + + | X-RAY PORTABLE CHEST | Routin | 10/19/2007 | | Results for this | | 1 VIEW | e | 4:46 AM | | procedure are in the | | | | PDT | | results section. | + +--------+ + + + | VASC LAB PORTABLE | Routin | 10/19/2007 | | Results for this | | TRANSCRANIAL DOPPLER | e | 4:27 AM | | procedure are in the | | COMPLETE | | PDT | | results section. | + +--------+ + + + | VASC LAB PORTABLE | Routin | 10/19/2007 | | Results for this | | CAROTID DUPLEX | e | 4:27 AM | | procedure are in the | | COMPLETE BILATERAL | | PDT | | results section. | + +--------+ + + + | TROPONIN I, PLASMA | Urgent | 10/19/2007 | | Results for this | | | | 1:49 AM | | procedure are in the | | | | PDT | | results section. | + +--------+ + + + | BLOOD GASES, | Urgent | 10/19/2007 | | Results for this | | ARTERIAL - LAB | | 1:48 AM | | procedure are in the | | | | PDT | | results section. | + +--------+ + + + | DIFFERENTIAL | Urgent | 10/19/2007 | | Results for this | | | | 1:45 AM | | procedure are in the | | | | PDT | | results section. | + +--------+ + + + | CBC, WITH | Urgent | 10/19/2007 | | Results for this | | DIFFERENTIAL | | 1:45 AM | | procedure are in the | | | | PDT | | results section. | + +--------+ + + + | TROPONIN I, PLASMA | Routin | 10/19/2007 | | Results for this | | | e | 1:45 AM | | procedure are in the | | | | PDT | | results section. | + +--------+ + + + | RENAL FUNCTION SET | Urgent | 10/19/2007 | | Results for this | | (NA,K,CL,CO2,BUN,CRE | | 1:45 AM | | procedure are in the | | AT,GLUC,CA,PHOS,ALB | | PDT | | results section. | | ) | | | | | + +--------+ + + + | MAGNESIUM, PLASMA | Urgent | 10/19/2007 | | Results for this | | | | 1:45 AM | | procedure are in the | | | | PDT | | results section. | + +--------+ + + + | MAGNESIUM, PLASMA | Routin | 10/19/2007 | | Results for this | | | e | 12:58 AM | | procedure are in the | | | | PDT | | results section. | + +--------+ + + + | SURGICAL PATHOLOGY | Routin | 10/19/2007 | | Results for this | | | e | | | procedure are in the | | | | | | results section. | + +--------+ + + + | CT HEAD WO CONTRAST | Urgent | 10/18/2007 | | Results for this | | | | 11:31 PM | | procedure are in the | | | | PDT | | results section. | + +--------+ + + + | FREE T4 | Routin | 10/18/2007 | | Results for this | | | e | 1:27 PM | | procedure are in the | | | | PDT | | results section. | + +--------+ + + + | TSH | Routin | 10/18/2007 | | Results for this | | | e | 1:27 PM | | procedure are in the | | | | PDT | | results section. | + +--------+ + + + | POTASSIUM, PLASMA | Urgent | 10/18/2007 | | Results for this | | | | 1:25 PM | | procedure are in the | | | | PDT | | results section. | + +--------+ + + + | SODIUM, PLASMA | Urgent | 10/18/2007 | | Results for this | | | | 1:25 PM | | procedure are in the | | | | PDT | | results section. | + +--------+ + + + | TROPONIN I, PLASMA | Urgent | 10/18/2007 | | Results for this | | | | 1:25 PM | | procedure are in the | | | | PDT | | results section. | + +--------+ + + + | POTASSIUM, PLASMA | Urgent | 10/18/2007 | | Results for this | | | | 1:01 PM | | procedure are in the | | | | PDT | | results section. | + +--------+ + + + | SODIUM, PLASMA | Urgent | 10/18/2007 | | Results for this | | | | 1:00 PM | | procedure are in the | | | | PDT | | results section. | + +--------+ + + + | CEREBRAL 3 VESSELS | Routin | 10/18/2007 | | Results for this | | | e | 9:35 AM | | procedure are in the | | | | PDT | | results section. | + +--------+ + + + | BLOOD GASES, | Urgent | 10/18/2007 | | Results for this | | ARTERIAL - LAB | | 8:20 AM | | procedure are in the | | | | PDT | | results section. | + +--------+ + + + | X-RAY PORTABLE CHEST | Routin | 10/18/2007 | | Results for this | | 1 VIEW | e | 7:41 AM | | procedure are in the | | | | PDT | | results section. | + +--------+ + + + | INR | Urgent | 10/18/2007 | | Results for this | | | | 5:01 AM | | procedure are in the | | | | PDT | | results section. | + +--------+ + + + | COMPLETE METABOLIC | Urgent | 10/18/2007 | | Results for this | | SET | | 5:01 AM | | procedure are in the | | (NA,K,CL,CO2,BUN,CRE | | PDT | | results section. | | AT,GLUC,CA,AST,ALT,B | | | | | | EMILIANO TOTAL,ALK | | | | | | PHOS,ALB,PROT TOTAL) | | | | | + +--------+ + + + | BASIC METABOLIC SET | Urgent | 10/18/2007 | | Results for this | | (NA, K, CL, TCO2, | | 5:01 AM | | procedure are in the | | BUN, CR, GLU, CA) | | PDT | | results section. | + +--------+ + + + | CTA HEAD W CONTRAST | Urgent | 10/18/2007 | | Results for this | | | | 4:56 AM | | procedure are in the | | | | PDT | | results section. | + +--------+ + + + | CBC ONLY | Urgent | 10/18/2007 | | Results for this | | | | 4:51 AM | | procedure are in the | | | | PDT | | results section. | + +--------+ + + + | TYPE AND SCREEN | Urgent | 10/18/2007 | | Results for this | | | | 4:51 AM | | procedure are in the | | | | PDT | | results section. | + +--------+ + + + | PRODUCT - RED CELLS | Routin | 10/18/2007 | | Results for this | | LEUKOREDUCED | e | 4:50 AM | | procedure are in the | | | | PDT | | results section. | + +--------+ + + + | PRODUCT - RED CELLS | Routin | 10/18/2007 | | Results for this | | LEUKOREDUCED | e | 4:50 AM | | procedure are in the | | | | PDT | | results section. | + +--------+ + + + | TROPONIN I, PLASMA | Routin | 10/18/2007 | | Results for this | | | e | 4:50 AM | | procedure are in the | | | | PDT | | results section. | + +--------+ + + + | COMPLETE METABOLIC | Urgent | 10/18/2007 | | Results for this | | SET | | 4:50 AM | | procedure are in the | | (NA,K,CL,CO2,BUN,CRE | | PDT | | results section. | | AT,GLUC,CA,AST,ALT,B | | | | | | EMILIANO TOTAL,ALK | | | | | | PHOS,ALB,PROT TOTAL) | | | | | + +--------+ + + + | CBC ONLY | Urgent | 10/18/2007 | | Results for this | | | | 4:50 AM | | procedure are in the | | | | PDT | | results section. | + +--------+ + + + | COAGULOPATHY PANEL | Urgent | 10/18/2007 | | Results for this | | (INR,APTT,FIBRINOGEN | | 4:50 AM | | procedure are in the | | ) | | PDT | | results section. | + +--------+ + + + | TEACHING PHYSICIAN | | 10/18/2007 | | Results for this | | | | 12:00 AM | | procedure are in the | | | | PDT | | results section. | + +--------+ + + + | OPERATION RECORD | | 10/18/2007 | | Results for this | | | | 12:00 AM | | procedure are in the | | | | PDT | | results section. | + +--------+ + + + documented in this encounter Results PROCEDURE NOTE (03/28/2015 2:58 PM PST)PROCEDURE NOTE (03/28/2015 2:58 PM PST)PROCEDURE N ROMERO (03/28/2015 2:57 PM PST)RESP CARE THERAPY (11/02/2007 6:00 PM PDT) + + + + + + | Component | Value | Ref Range | Performed | Pathologist | | | | | At | Signature | + + + + + + | RESPIRATORY | Order _ [id number] If > 50 | | [facility] | | | CARE | puffs / day chng to QNOC | | RESPIRATORY | | | | therapy omitted.Reason | | THERAPY | | | | : Nebulizer supply | | | | | | exchange complete. - | | | | | | Time due:Electronically | | | | | | Signed by: Brandon | | | | | | PJ Sheridan | | | | + + + + + + + + | Specimen | + + | | + + + + + | Narrative | Performed At | + + + | Ordered by an unspecified provider. | [facility] | | | RESPIRATORY | | | THERAPY | + + + + + + + + | Performing | Address | City/State/Zipcode | Phone Number | | Organization | | | | + + + + + | [facility] | [address] | [place], [place] | | | THERAPY | [address] | [phone] | | + + + + + | [facility] | [address] | [place], [place] | | | THERAPY | [facility] | [phone] | | + + + + + RADIOLOGY (11/02/2007 2:59 PM PDT) + + + | Narrative | Performed At | + + + | | | + + + + + | Procedure Note | + + | Noe, Faculty - 11/02/2007 2:59 PM PDT | + + ECHO PROCEDURE (11/02/2007 2:59 PM PDT) + + + | Narrative | Performed At | + + + | | | + + + + + | Procedure Note | + + | Other, Faculty - 11/02/2007 2:59 PM PDT | + + RESP CARE THERAPY (11/02/2007 7:50 AM PDT) + + + + + + | Component | Value | Ref Range | Performed | Pathologist | | | | | At | Signature | + + + + + + | RESPIRATORY | Inhaled medication | | [facility] | | | CARE | treatment was not given. | | RESP[facility]ORY | | | | The patient was | | THERAPY | | | | assessed.Therapy was not | | | | | | | | | | | | indicated.Electronically | | | | | | Signed by: Brandon | | | | | | PJ Sheridan | | | | + + + + + + + + | Specimen | + + | | + + + + + | Narrative | Performed At | + + + | Ordered by an unspecified provider. | [facility] | | | [facility] | | | THERAPY | + + + + + + + + | Performing | Address | City/State/Zipcode | Phone Number | | Organization | | | | + + + + + | [facility] | [address] | [place], [place] | | | THERAPY | [address] [address] | [address] | | + + + + + | [facility] | [address] | [place], [place] | | | THERAPY | [facility] | [address] | | + + + + + RESP CARE THERAPY (11/02/2007 6:00 AM PDT) + + + + + + | Component | Value | Ref Range | Performed | Pathologist | | | | | At | Signature | + + + + + + | RESPIRATORY | Order _ MDI therapy | | [facility] | | | CARE | omitted.Reason : The | | RESPIRATORY | | | | patient was assessed. | | THERAPY | | | | Therapy is not indicated | | | | | | - Time | | | | | | due:Electronically | | | | | | Signed by: Kiera | | | | | | RT Jordan | | | | + + + + + + + + | Specimen | + + | | + + + + + | Narrative | Performed At | + + + | Ordered by an unspecified provider. | [facility] | | | RESPIRATORY | | | THERAPY | + + + + + + + + | Performing | Address | City/State/Zipcode | Phone Number | | Organization | | | | + + + + + | [facility] | [address] | [place], [place] | | | THERAPY | [address] | [address] | | + + + + + | [facility] | [address] | [place], [place] | | | THERAPY | [facility] | [address] | | + + + + + RESP CARE THERAPY (11/02/2007 1:24 AM PDT) + + + + + + | Component | Value | Ref Range | Performed | Pathologist | | | | | At | Signature | + + + + + + | RESPIRATORY | Oxygen device on | | [facility] | | | CARE | standby, nasal | | RESPIRATORY | | | | canula.Electronically | | THERAPY | | | | Signed by: Kiera | | | | | | RT Jordan | | | | + + + + + + + + | Specimen | + + | | + + + + + | Narrative | Performed At | + + + | Ordered by an unspecified provider. | [facility] | | | RESPIRATORY | | | THERAPY | + + + + + + + + | Performing | Address | City/State/Zipcode | Phone Number | | Organization | | | | + + + + + | [facility] | [address] | [place], [place] | | | THERAPY | [address] | [address] | | + + + + + | [facility] | [address] | [place], [place] | | | THERAPY | [facility] | [address] | | + + + + + RESP CARE THERAPY (11/01/2007 7:50 AM PDT) + + + + + + | Component | Value | Ref Range | Performed | Pathologist | | | | | At | Signature | + + + + + + | RESPIRATORY | Inhaled medication | | [facility] | | | CARE | treatment was not given. | | RESPIRATORY | | | | The patient was | | THERAPY | | | | assessed.Therapy was not | | | | | | | | | | | | indicated.Electronically | | | | | | Signed by: Brandon | | | | | | PJ [place] | | | | + + + + + + + + | Specimen | + + | | + + + + + | Narrative | Performed At | + + + | Ordered by an unspecified provider. | [facility] | | | RESPIRATORY | | | THERAPY | + + + + + + + + | Performing | Address | City/State/Zipcode | Phone Number | | Organization | | | | + + + + + | [facility] | [address] | [place], [place] | | | THERAPY | [address] | [address] | | + + + + + | [facility] | [address] [facility] | [place], [place] | | | THERAPY | [address] | [address] | | + + + + + RESP CARE THERAPY (11/01/2007 6:34 AM PDT) + + + + + + | Component | Value | Ref Range | Performed | Pathologist | | | | | At | Signature | + + + + + + | RESPIRATORY | Oxygen device on | | [facility] | | | CARE | standby, nasal | | RESPIRATORY | | | | canramon.Electronically | | THERAPY | | | | Signed by: Ayush | | | | | | PJ Silvestre | | | | + + + + + + + + | Specimen | + + | | + + + + + | Narrative | Performed At | + + + | Ordered by an unspecified provider. | [facility] | | | RESPIRATORY | | | THERAPY | + + + + + + + + | Performing | Address | City/State/Zipcode | Phone Number | | Organization | | | | + + + + + | [facility] | [address] | [place], [place] | | | THERAPY | [address] | [address] | | + + + + + | [facility] | [address] [facility] | [place], [place] | | | THERAPY | [address] | [address] | | + + + + + RESP CARE THERAPY (10/31/2007 9:23 PM PDT) + + + + + + | Component | Value | Ref Range | Performed | Pathologist | | | | | At | Signature | + + + + + + | RESPIRATORY | Inhaled medication | | [facility] | | | CARE | treatment was not given. | | RESPIRATORY | | | | The patient was | | THERAPY | | | | assessed.Therapy was not | | | | | | | | | | | | indicated.Electronically | | | | | | Signed by: Ayush | | | | | | PJ Silvestre | | | | + + + + + + + + | Specimen | + + | | + + + + + | Narrative | Performed At | + + + | Ordered by an unspecified provider. | [facility] | | | RESPIRATORY | | | THERAPY | + + + + + + + + | Performing | Address | City/State/Zipcode | Phone Number | | Organization | | | | + + + + + | [facility] | [address] | [place], [place] | | | THERAPY | [facility] | [address] | | + + + + + | [facility] | [address] | [place], [place] | | | THERAPY | [facility] | [address] | | + + + + + RESP CARE THERAPY (10/31/2007 6:30 PM PDT) + + + + + + | Component | Value | Ref Range | Performed | Pathologist | | | | | At | Signature | + + + + + + | RESPIRATORY | Pain Assessment:Patients | | [facility] | | | CARE | pain assessed and was a | | RESPIRATORY | | | | 0 on a scale of | | THERAPY | | | | 0-10.Interventions:Medic | | | | | | ation given via inhaler | | | | | | with Combivent 4 puffs . | | | | | | Total combined | | | | | | puffsgiven: 4 | | | | | | puffs.Assessment:Breath | | | | | | Sounds: crackles in the | | | | | | bases rhonchi upper | | | | | | airway .Cough/Sputum: | | | | | | Patient had a productive | | | | | | cough. Secretions | | | | | | obtained:secretions | | | | | | swallowed.Outcome after | | | | | | therapy: Patient's work | | | | | | of breathing decreased | | | | | | after therapy.Treatment | | | | | | Plan:No changes in | | | | | | therapy are | | | | | | indicated.Electronically | | | | | | Signed by: Idalmis Bar, | | | | + + + + + + + + | Specimen | + + | | + + + + + | Narrative | Performed At | + + + | Ordered by an unspecified provider. | [facility] | | | RESPIRATORY | | | THERAPY | + + + + + + + + | Performing | Address | City/State/Zipcode | Phone Number | | Organization | | | | + + + + + | [facility] | [address] | [place], [place] | | | THERAPY | [address] | [address] | | + + + + + | [facility] | [address] | [place], [place] | | | THERAPY | [address] | [address] | | + + + + + POTASSIUM, PLASMA (10/31/2007 2:35 PM PDT) + +-------+ + + + | Component | Value | Ref Range | Performed | Pathologist | | | | | At | Signature | + +-------+ + + + | POTASSIUM, | 3.5 | 3.4 - 5.0 | [facility] | | | PLASMA | | mmol/L | DEPARTMENT | | | (LAB) | | | OF | | | | | | PATHOLOGY | | + +-------+ + + + + + | Specimen | + + | | + + + + + | Narrative | Performed At | + + + | New Creatinine Reference ranges effective 07. | [facility] | | | DEPARTMENT OF | | | PATHOLOGY | + + + + + + + + | Performing | Address | City/State/Zipcode | Phone Number | | Organization | | | | + + + + + | [facility] | [address] [facility] | [place] [address] | | | PATHOLOGY | [address] | | | + + + + + | [facility] | [address] [place] [address] | [place] [address] | | | PATHOLOGY | [address] | | | + + + + + SODIUM, PLASMA (10/31/2007 2:35 PM PDT) + +-------+ + + + | Component | Value | Ref Range | Performed | Pathologist | | | | | At | Signature | + +-------+ + + + | SODIUM, | 136 | 134 - 143 | [facility] | | | PLASMA | | mmol/L | DEPARTMENT | | | (LAB) | | | OF | | | | | | PATHOLOGY | | + +-------+ + + + + + | Specimen | + + | Blood - Blood | + + + + + | Narrative | Performed At | + + + | New Creatinine Reference ranges effective 07. | [facility] | | | DEPARTMENT OF | | | PATHOLOGY | + + + + + + + + | Performing | Address | City/State/Zipcode | Phone Number | | Organization | | | | + + + + + | [facility] DEPARTMENT OF | [address] | [place] [address] | | | PATHOLOGY | [address] | | | + + + + + | [facility] DEPARTMENT OF | [facility] | [place] [address] | | | PATHOLOGY | [address] | | | + + + + + POTASSIUM, PLASMA (10/31/2007 2:35 PM PDT) + + + + + + | Component | Value | Ref Range | Performed | Pathologist | | | | | At | Signature | + + + + + + | POTASSIUM, | Combined. | 3.4 - 5.0 | [facility] | | | PLASMA | | mmol/L | DEPARTMENT | | | (LAB) | | | OF | | | | | | PATHOLOGY | | + + + + + + | POTASSIUM | Combined. | | [facility] | | | CMNT | | | DEPARTMENT | | | | | | OF | | | | | | PATHOLOGY | | + + + + + + + + | Specimen | + + | Blood - Blood | + + + + + | Narrative | Performed At | + + + | New Creatinine Reference ranges effective 07. | [facility] | | Combined with request same date/time. | DEPARTMENT OF | | | PATHOLOGY | + + + + + + + + | Performing | Address | City/State/Zipcode | Phone Number | | Organization | | | | + + + + + | [facility] DEPARTMENT OF | [address] | [place] [address] | | | PATHOLOGY | [address] | | | + + + + + | [facility] DEPARTMENT | [address] | [place] [address] | | | PATHOLOGY | [address] | | | + + + + + RESP CARE THERAPY (10/31/2007 2:00 PM PDT) + + + + + + | Component | Value | Ref Range | Performed | Pathologist | | | | | At | Signature | + + + + + + | RESPIRATORY | Pain Assessment:Patients | | [facility] | | | CARE | pain assessed and was a | | RESPIRATORY | | | | 0 on a scale of | | THERAPY | | | | 0-10.Interventions:Medic | | | | | | ation given via inhaler | | | | | | with Combivent 4 puffs . | | | | | | Total combined | | | | | | puffsgiven: 4 | | | | | | puffs.Assessment:Breath | | | | | | Sounds: clear | | | | | | .Cough/Sputum: Patient | | | | | | had no cough at this | | | | | | time.Outcome after | | | | | | therapy: There was | | | | | | minimal improvement in | | | | | | BS or work ofbreathing | | | | | | after therapy.Treatment | | | | | | Plan:No changes in | | | | | | therapy are | | | | | | indicated.Electronically | | | | | | Signed by: Idalmis Bar, | | | | + + + + + + + + | Specimen | + + | | + + + + + | Narrative | Performed At | + + + | Ordered by an unspecified provider. | [facility] | | | RESPIRATORY | | | THERAPY | + + + + + + + + | Performing | Address | City/State/Zipcode | Phone Number | | Organization | | | | + + + + + | [facility] | [address] | [place], [place] | | | THERAPY | [address] | [address] | | + + + + + | [facility] | [address] | [place], [place] | | | THERAPY | [address] | [address] | | + + + + + RESP CARE THERAPY (10/31/2007 8:30 AM PDT) + + + + + + | Component | Value | Ref Range | Performed | Pathologist | | | | | At | Signature | + + + + + + | RESPIRATORY | Pain Assessment:Patients | | [facility] | | | CARE | pain assessed and was a | | RESPIRATORY | | | | 0 on a scale of | | THERAPY | | | | 0-10.Interventions:Medic | | | | | | ation given via inhaler | | | | | | with Combivent 4 puffs . | | | | | | Total combined | | | | | | puffsgiven: 4 | | | | | | puffs.Assessment:Breath | | | | | | Sounds: coarse | | | | | | .Cough/Sputum: Patient | | | | | | had a productive cough. | | | | | | Secretions | | | | | | obtained:secretions | | | | | | swallowed.Outcome after | | | | | | therapy: Patient's | | | | | | breath sounds improved | | | | | | after therapy.Treatment | | | | | | Plan:No changes in | | | | | | therapy are | | | | | | indicated.Electronically | | | | | | Signed by: Idalmis Bar, | | | | + + + + + + + + | Specimen | + + | | + + + + + | Narrative | Performed At | + + + | Ordered by an unspecified provider. | [facility] | | | RESPIRATORY | | | THERAPY | + + + + + + + + | Performing | Address | City/State/Zipcode | Phone Number | | Organization | | | | + + + + + | [facility] | [address] [facility] | [place], [place] | | | THERAPY | [address] | [address] | | + + + + + | [facility] | [address] | [place], [place] | | | THERAPY | [address] | [address] | | + + + + + MAGNESIUM, PLASMA (10/31/2007 7:28 AM PDT) + +-------+ + + + | Component | Value | Ref Range | Performed | Pathologist | | | | | At | Signature | + +-------+ + + + | MAGNESIUM,P | 2.1 | 1.8 - 2.5 mg/dL | [facility] | | | LASMA | | | DEPARTMENT | | | | | | OF | | | | | | PATHOLOGY | | + +-------+ + + + + + | Specimen | + + | Blood - Blood | + + + + + | Narrative | Performed At | + + + | New Creatinine Reference ranges effective 07. | [facility] | | | DEPARTMENT OF | | | PATHOLOGY | + + + + + + + + | Performing | Address | City/State/Zipcode | Phone Number | | Organization | | | | + + + + + | [facility] DEPARTMENT OF | [address] | [place] [address] | | | PATHOLOGY | [address] | | | + + + + + | [facility] | [address] | [place] [address] | | | PATHOLOGY | [address] | | | + + + + + SODIUM, PLASMA (10/31/2007 7:28 AM PDT) + +-------+ + + + | Component | Value | Ref Range | Performed | Pathologist | | | | | At | Signature | + +-------+ + + + | SODIUM, | 137 | 134 - 143 | [facility] | | | PLASMA | | mmol/L | DEPARTMENT | | | (LAB) | | | OF | | | | | | PATHOLOGY | | + +-------+ + + + + + | Specimen | + + | Blood - Blood | + + + + + | Narrative | Performed At | + + + | New Creatinine Reference ranges effective 07. | [facility] | | | DEPARTMENT OF | | | PATHOLOGY | + + + + + + + + | Performing | Address | City/State/Zipcode | Phone Number | | Organization | | | | + + + + + | [facility] DEPART[facility] OF | [address] | [place] [address] | | | PATHOLOGY | [address] | | | + + + + + | [facility] DEPARTMENT OF | [address] | [place] [address] | | | PATHOLOGY | [address] | | | + + + + + RENAL FUNCTION SET (NA,K,CL,CO2,BUN,CREAT,GLUC,CA,PHOS,ALB ) (10/31/2007 7:28 AM PDT) + + + + + + | Component | Value | Ref Range | Performed | Pathologist | | | | | At | Signature | + + + + + + | GLUCOSE, | 106 (H) | 60 - 99 mg/dL | [facility] | | | PLASMA | | | [...] + + + + | CREATININE | 0.53 (L) | 0.60 - 1.10 | [facility] | | | PLASMA | | mg/dL | DEPARTMENT | | | (LAB) | | | OF | | | | | | PATHOLOGY | | + + + + + + | ALBUMIN, | 2.9 (L) | 3.5 - 4.7 g/dL | [facility] | | | PLASMA | | | DEPARTMENT | | | (LAB) | | | OF | | | | | | PATHOLOGY | | + + + + + + | CALCIUM, | 8.8 | 8.6 - 10.2 | [facility] | | | PLASMA | | mg/dL | DEPARTMENT | | | (LAB) | | | OF | | | | | | PATHOLOGY | | + + + + + + | PHOSPHORUS, | 3.7 | 2.4 - 4.7 mg/dL | [facility] | | | PLASMA | | | DEPARTMENT | | | (LAB) | | | OF | | | | | | PATHOLOGY | | + + + + + + | SODIUM, | 136 | 134 - 143 | [facility] | | | PLASMA | | mmol/L | DEPARTMENT | | | (LAB) | | | OF | | | | | | PATHOLOGY | | + + + + + + | POTASSIUM, | 3.8 | 3.4 - 5.0 | [facility] | | | PLASMA | | mmol/L | DEPARTMENT | | | (LAB) | | | OF | | | | | | PATHOLOGY | | + + + + + + | CHLORIDE, | 103 | 97 - 108 mmol/L | [facility] | | | PLASMA | | | DEPARTMENT | | | (LAB) | | | OF | | | | | | PATHOLOGY | | + + + + + + | TOTAL CO2, | 26 | 23 - 31 mmol/L | [facility] | | | PLASMA | | | DEPARTMENT | | | (LAB) | | | OF | | | | | | PATHOLOGY | | + + + + + + + + | Specimen | + + | Blood - Blood | + + + + + | Narrative | Performed At | + + + | New Creatinine Reference ranges effective 07. | [facility] | | | DEPARTMENT OF | | | PATHOLOGY | + + + + + + + + | Performing | Address | City/State/Zipcode | Phone Number | | Organization | | | | + + + + + | [facility] DEPARTMENT OF | [address] | [place] [address] | | | PATHOLOGY | [address] | | | + + + + + | [facility] DEPARTMENT OF | [address] | [place] [address] | | | PATHOLOGY | [address] | | | + + + + + POTASSIUM, PLASMA (10/31/2007 7:28 AM PDT) + +-------+ + + + | Component | Value | Ref Range | Performed | Pathologist | | | | | At | Signature | + +-------+ + + + | POTASSIUM, | 3.8 | 3.4 - 5.0 | [facility] | | | PLASMA | | mmol/L | DEPARTMENT | | | (LAB) | | | OF | | | | | | PATHOLOGY | | + +-------+ + + + + + | Specimen | + + | Blood - Blood | + + + + + | Narrative | Performed At | + + + | New Creatinine Reference ranges effective 07. | [facility] | | | DEPARTMENT OF | | | PATHOLOGY | + + + + + + + + | Performing | Address | City/State/Zipcode | Phone Number | | Organization | | | | + + + + + | [facility] | [address] | [place] [address] | | | PATHOLOGY | [address] | | | + + + + + | [facility] | [address] | [place] [address] | | | PATHOLOGY | [address] | | | + + + + + VASC LAB PORTABLE TRANSCRANIAL DOPPLER COMPLETE (10/31/2007 1:39 AM PDT) + + + + + + | Component | Value | Ref Range | Performed | Pathologist | | | | | At | Signature | + + + + + + | [facility] LAB | Med Rec No:[id number] | | | | | PORTABLE | Name: | | | | | TRANSCRANIA | GLORIA ADHIKARI | | | | | L DOPPLER | Birthday: 1950 | | | | | COMPLETE | Sex: F | | | | | | Alias:Patient Location: | | | | | | 10KStatus: Inpatient | | | | | | ActiveOrdering | | | | | | Physician: | | | | | | ACLANDOGAJalen,VTCDCPVL PORT | | | | | | TRANSCRANIAL DOP COMP | | | | | | completed on 10/31/2007 | | | | | | 6:59 AMAccession | | | | | | #[id number]:TRANSCRAN | | | | | | IAL DOPPLER STUDY: | | | | | | 10/31/2007 Dictated | | | | | | 10/31/2007INDICATION: | | | | | | Vasospasm.The duplex | | | | | | scanner was used to | | | | | | examine the ophthalmic, | | | | | | intracranial,internal | | | | | | carotid, middle | | | | | | cerebral, anterior | | | | | | cerebral, | | | | | | posteriorcerebral and | | | | | | intracranial vertebral | | | | | | arteries bilaterally. | | | | | | Thebasilar artery and | | | | | | extracranial internal | | | | | | carotid arteries were | | | | | | alsoexamined.All of the | | | | | | above-noted vessels were | | | | | | patent with flows in | | | | | | the | | | | | | expecteddirection.The | | | | | | maximum middle cerebral | | | | | | artery flow velocity on | | | | | | the right is 148cm/sec | | | | | | with a mean velocity of | | | | | | 93 cm/sec and a | | | | | | calculated | | | | | | hemisphericratio of | | | | | | 2.5.The maximum middle | | | | | | cerebral artery flow | | | | | | velocity on the left is | | | | | | 142cm/sec with a mean | | | | | | velocity of 90 cm/sec | | | | | | and a calculated | | | | | | hemisphericratio of | | | | | | 3.75.IMPRESSION:IMPRESSI | | | | | | ON:Transcranial Doppler | | | | | | study with borderline | | | | | | evidence of vasospasm | | | | | | inthe left middle | | | | | | cerebral | | | | | | distribution.END | | | | | | IMPRESSION:END | | | | | | IMPRESSIONI have | | | | | | personally viewed this | | | | | | procedure/exam and | | | | | | reviewed this | | | | | | report.STATUS FINAL / | | | | | | Dr. KALIA ERIC | | | | | | L.STATUS PRELIMINARY - | | | | | | UNSIGNED / [place] [facility] | | | | + + + + + + + + | Specimen | + + | | + + + +---------+ + + | Performing | Address | City/State/Zipcode | Phone Number | | Organization | | | | + +---------+ + + | [facility] DEPARTMENT OF | | | | | RADIOLOGY | | | | + +---------+ + + RESP CARE THERAPY (10/31/2007 1:10 AM PDT) + + + + + + | Component | Value | Ref Range | Performed | Pathologist | | | | | At | Signature | + + + + + + | RESPIRATORY | Nasal cannula at 4 | | [facility] | | | CARE | LPM.Electronically | | RESPIRATORY | | | | Signed by: Tenzin Samaniego, | | THERAPY | | | | [employer] | | | | + + + + + + + + | Specimen | + + | | + + + + + | Narrative | Performed At | + + + | Ordered by an unspecified provider. | [facility] | | | RESPIRATORY | | | THERAPY | + + + + + + + + | Performing | Address | City/State/Zipcode | Phone Number | | Organization | | | | + + + + + | [facility] | [address] | [place], [place] | | | THERAPY | [address] | [address] | | + + + + + | [facility] | [address] | [place], [place] | | | THERAPY | [address] | [address] | | + + + + + SPECIFIC GRAVITY, BODY FLUID (10/31/2007 1:00 AM PDT) + +---------+ + + + | Component | Value | Ref Range | Performed | Pathologist | | | | | At | Signature | + +---------+ + + + | SPEC GRAV | Err req | | [facility] | | | BODY FLUID | | | DEPARTMENT | | | | | | OF | | | | | | PATHOLOGY | | + +---------+ + + + | TYPE OF | URN | | [facility] | | | FLUID | URN | | DEPARTMENT | | | | [...] + + + + + | [facility] DEPARTMENT OF | [address] | [place] [address] | | | PATHOLOGY | [address] | | | + + + + + | [facility] DEPARTMENT OF | [address] | [place] [address] | | | PATHOLOGY | [address] | | | + + + + + CBC ONLY (10/31/2007 12:01 AM PDT) + + + + + + | Component | Value | Ref Range | Performed | Pathologist | | | | | At | Signature | + + + + + + | WHITE CELL | Not Recd | 4.4 - 11.0 K/cu | [facility] | | | COUNT | | mm | DEPARTMENT | | | | | | OF | | | | | | PATHOLOGY | | + + + + + + | RED CELL | Not Recd | 4.00 - 5.20 | [facility] | | | COUNT | | M/cu mm | DEPARTMENT | | | | | | OF | | | | | | PATHOLOGY | | + + + + + + | HEMOGLOBIN | Not Recd | 12.0 - 16.0 | [facility] | | | | | g/dL | DEPARTMENT | | | | | | OF | | | | | | PATHOLOGY | | + + + + + + | HEMATOCRIT | Not Recd | 36.0 - 46.0 % | [facility] | | | | | | DEPARTMENT | | | | | | OF | | | | | | PATHOLOGY | | + + + + + + | MCV | Not Recd | 80.0 - 96.0 fL | [facility] | | | | | | DEPARTMENT | | | | | | OF | | | | | | PATHOLOGY | | + + + + + + | MCHC | Not Recd | 33.4 - 35.5 | [facility] | | | | | g/dL | DEPARTMENT | | | | | | OF | | | | | | PATHOLOGY | | + + + + + + | RDW | Not Recd | 11.5 - 15.0 % | [facility] | | | | | | DEPARTMENT | | | | | | OF | | | | | | PATHOLOGY | | + + + + + + | PLATELET | Not Recd | 150 - 400 K/cu | [facility] [...] DEPARTMENT OF | [address] | [place] [address] | | | PATHOLOGY | [address] | | | + + + + + | [facility] DEPARTMENT | [address] | [place] [address] | | | PATHOLOGY | [address] | | | + + + + + SPECIFIC GRAVITY, BODY FLUID (10/30/2007 10:05 PM PDT) + +---------+ + + + | Component | Value | Ref Range | Performed | Pathologist | | | | | At | Signature | + +---------+ + + + | SPEC GRAV | Err req | | [facility] | | | BODY FLUID | | | DEPARTMENT | | | | | | OF | | | | | | PATHOLOGY | | + +---------+ + + + | TYPE OF | URN | | [facility] | | | FLUID | URN | | DEPARTMENT | | | | [...] + + + + + | [facility] DEPARTMENT OF | [facility] | [place] [address] | | | PATHOLOGY | [address] | | | + + + + + | [facility] DEPARTMENT OF | [address] | [place] [address] | | | PATHOLOGY | [address] | | | + + + + + RESP CARE THERAPY (10/30/2007 9:47 PM PDT) + + + + + + | Component | Value | Ref Range | Performed | Pathologist | | | | | At | Signature | + + + + + + | RESPIRATORY | Pain Assessment:Patients | | [facility] | | | CARE | pain assessed and was a | | RESPIRATORY | | | | 0 on a scale of | | THERAPY | | | | 0-10.Interventions:Medic | | | | | | ation given via inhaler | | | | | | with Combivent 4 puffs . | | | | | | Total combined | | | | | | puffsgiven: 4 | | | | | | puffs.Assessment:Breath | | | | | | Sounds: diminished with | | | | | | scattered rhonchi | | | | | | bilateral .Cough/Sputum: | | | | | | Patient had a | | | | | | non-productive | | | | | | cough.Outcome after | | | | | | therapy: There was | | | | | | minimal improvement in | | | | | | BS or work ofbreathing | | | | | | after therapy.Treatment | | | | | | Plan:No changes in | | | | | | therapy are | | | | | | indicated.Medication | | | | | | teaching provided. 1 15 | | | | | | minutes of education for | | | | | | medication ormedication | | | | | | delivery | | | | | | provided.Electronically | | | | | | Signed by: Tenzin Samaniego, | | | | | | [employer] | | | | + + + + + + + + | Specimen | + + | | + + + + + | Narrative | Performed At | + + + | Ordered by an unspecified provider. | [facility] | | | RESPIRATORY | | | THERAPY | + + + + + + + + | Performing | Address | City/State/Zipcode | Phone Number | | Organization | | | | + + + + + | [facility] RESPIRATORY | [address] [facility] [address] | [place], [place] | | | THERAPY | [address] | [address] | | + + + + + | [facility] RES[facility] | [address] | [place], [place] | | | THERAPY | [facility] | [phone] | | + + + + + RESP CARE THERAPY (10/30/2007 6:41 PM PDT) + + + + + + | Component | Value | Ref Range | Performed | Pathologist | | | | | At | Signature | + + + + + + | RESPIRATORY | Pain Assessment:Patients | | [facility] | | | CARE | pain assessed and was a | | RESPIRATORY | | | | 0 on a scale of | | THERAPY | | | | 0-10.Interventions:Medic | | | | | | ation given via inhaler | | | | | | with Combivent 4 puffs . | | | | | | Total combined | | | | | | puffsgiven: 4 | | | | | | puffs.Assessment:Breath | | | | | | Sounds: diminished | | | | | | diminished | | | | | | .Cough/Sputum:Outcome | | | | | | after therapy: There was | | | | | | minimal improvement in | | | | | | BS or work ofbreathing | | | | | | after therapy.Treatment | | | | | | Plan:No changes in | | | | | | therapy are | | | | | | indicated.Electronically | | | | | | Signed by: Verna | | | | | | Leo, | | | | + + + + + + + + | Specimen | + + | | + + + + + | Narrative | Performed At | + + + | Ordered by an unspecified provider. | [facility] | | | RESPIRATORY | | | THERAPY | + + + + + + + + | Performing | Address | City/State/Zipcode | Phone Number | | Organization | | | | + + + + + | [facility] RESP[facility] | [address] | [place], [place] | | | THERAPY | [address] | [address] | | + + + + + | [facility] | [address] | [place], [place] | | | THERAPY | [facility] | [address] | | + + + + + SPECIFIC GRAVITY, BODY FLUID (10/30/2007 4:05 PM PDT) + +---------+ + + + | Component | Value | Ref Range | Performed | Pathologist | | | | | At | Signature | + +---------+ + + + | SPEC GRAV | Err req | | [facility] | | | BODY FLUID | | | DEPARTMENT | | | | | | OF | | | | | | PATHOLOGY | | + +---------+ + + + | TYPE OF | Err req | | [facility] | | | FLUID | | | DEPARTMENT | | | | | | OF | | | | | | PATHOLOGY | | + +---------+ + + + + + | Specimen | + + | Urine - Urine | + + + + + | Narrative | Performed At | + + + | * Corrected 10/31/07 08:39: TYPE OF BODY FLUID, prev report: | [facility] | | freewf | DEPARTMENT OF | | | PATHOLOGY | + + + + + + + + | Performing | Address | City/State/Zipcode | Phone Number | | Organization | | | | + + + + + | [facility] DEPARTMENT OF | [address] [facility] | [place] [address] | | | PATHOLOGY | [address] | | | + + + + + | [facility] DEPARTMENT OF | [address] | [place] [address] | | | PATHOLOGY | [address] | | | + + + + + POTASSIUM, PLASMA (10/30/2007 3:15 PM PDT) + +-------+ + + + | Component | Value | Ref Range | Performed | Pathologist | | | | | At | Signature | + +-------+ + + + | POTASSIUM, | 4.3 [...] At | + + + | New Creatinine Reference ranges effective 07. | [facility] | | | DEPARTMENT OF | | | PATHOLOGY | + + + + + + + + | Performing | Address | City/State/Zipcode | Phone Number | | Organization | | | | + + + + + | [facility] DEPARTMENT OF | [address] | [place] [address] | | | PATHOLOGY | [address] | | | + + + + + | [facility] DEPARTMENT | [address] | [place] [address] | | | PATHOLOGY | [address] | | | + + + + + POTASSIUM, PLASMA (10/30/2007 3:15 PM PDT) + + + + + + | Component | Value | Ref Range | Performed | Pathologist | | | | | At | Signature | + + + + + + | POTASSIUM, | Combined. | 3.4 - 5.0 | [facility] | | | PLASMA | | mmol/L | DEPARTMENT | | | (LAB) | | | OF | | | | | | PATHOLOGY | | + + + + + + + + | Specimen | + + | Blood - Blood | + + + + + | Narrative | Performed At | + + + | New Creatinine Reference ranges effective 07. | [facility] | | Combined with request same date/time. | DEPARTMENT OF | | | PATHOLOGY | + + + + + + + + | Performing | Address | City/State/Zipcode | Phone Number | | Organization | | | | + + + + + | [facility] DEPARTMENT OF | [address] | [place] [address] | | | PATHOLOGY | [address] | | | + + + + + | [facility] DEPARTMENT OF | [address] | [place] [address] | | | PATHOLOGY | [address] | | | + + + + + SODIUM, PLASMA (10/30/2007 3:15 PM PDT) + +-------+ + + + | Component | Value | Ref Range | Performed | Pathologist | | | | | At | Signature | + +-------+ + + + | SODIUM, | 137 | 134 - 143 | [facility] | | | PLASMA | | mmol/L | DEPARTMENT | | | (LAB) | | | OF | | | | | | PATHOLOGY | | + +-------+ + + + + + | Specimen | + + | Blood - Blood | + + + + + | Narrative | Performed At | + + + | New Creatinine Reference ranges effective 07. | [facility] | | | DEPARTMENT OF | | | PATHOLOGY | + + + + + + + + | Performing | Address | City/State/Zipcode | Phone Number | | Organization | | | | + + + + + | [facility] | [address] [facility] | [place] [address] | | | PATHOLOGY | [address] | | | + + + + + | [facility] | [address] [facility] | [place] [address] | | | PATHOLOGY | [address] | | | + + + + + RESP CARE THERAPY (10/30/2007 2:55 PM PDT) + + + + + + | Component | Value | Ref Range | Performed | Pathologist | | | | | At | Signature | + + + + + + | RESPIRATORY | Pain Assessment:Patients | | [facility] | | | CARE | pain assessed and was a | | RESPIRATORY | | | | 0 on a scale of | | THERAPY | | | | 0-10.Interventions:Medic | | | | | | ation given via inhaler | | | | | | with Combivent 4 puffs . | | | | | | Total combined | | | | | | puffsgiven: 4 | | | | | | puffs.Assessment:Breath | | | | | | Sounds: diminished | | | | | | .Cough/Sputum: Patient | | | | | | had a productive cough. | | | | | | Secretions | | | | | | obtained:secretions | | | | | | swallowed.Outcome after | | | | | | therapy: There was | | | | | | minimal improvement in | | | | | | BS or work ofbreathing | | | | | | after therapy.Treatment | | | | | | Plan:No changes in | | | | | | therapy are | | | | | | indicated.Electronically | | | | | | Signed by: Karyn | | | | | | Angela, | | | | + + + + + + + + | Specimen | + + | | + + + + + | Narrative | Performed At | + + + | Ordered by an unspecified provider. | [facility] | | | RESPIRATORY | | | THERAPY | + + + + + + + + | Performing | Address | City/State/Zipcode | Phone Number | | Organization | | | | + + + + + | [facility] RES[facility] | [address] [facility] | [place], [place] | | | THERAPY | [address] | [address] | | + + + + + | [facility] RES[facility] | [address] [facility] | [place], [place] | | | THERAPY | [address] | [address] | | + + + + + SPECIFIC GRAVITY, BODY FLUID (10/30/2007 10:05 AM PDT) + +---------+ + + + | Component | Value | Ref Range | Performed | Pathologist | | | | | At | Signature | + +---------+ + + + | SPEC GRAV | Err req | | [facility] | | | BODY FLUID | | | DEPARTMENT | | | | | | OF | | | | | | PATHOLOGY | | + +---------+ + + + | TYPE OF | URN | | [facility] | | | FLUID | URN | | DEPARTMENT | | | | | | OF | | | | | | PATHOLOGY | | + +---------+ + + + + + | Specimen | + + | Urine - Urine | + + + + + | Narrative | Performed At | + + + | Order urine specific gravity as dip stick. | [facility] | | | DEPARTMENT OF | | | PATHOLOGY | + + + + + + + + | Performing | Address | City/State/Zipcode | Phone Number | | Organization | | | | + + + + + | [facility] DEPARTMENT OF | [address] [facility] | [place] [address] | | | PATHOLOGY | [address] | | | + + + + + | [facility] DEPARTMENT OF | [address] [facility] | [place] [address] | | | PATHOLOGY | [address] | | | + + + + + RESP CARE THERAPY (10/30/2007 9:00 AM PDT) + + + + + + | Component | Value | Ref Range | Performed | Pathologist | | | | | At | Signature | + + + + + + | RESPIRATORY | Pain Assessment:Patients | | [facility] | | | CARE | pain assessed and was a | | RESPIRATORY | | | | 0 on a scale of | | THERAPY | | | | 0-10.Interventions:Medic | | | | | | ation given via inhaler | | | | | | with Combivent 4 puffs . | | | | | | Total combined | | | | | | puffsgiven: 4 | | | | | | puffs.Assessment:Breath | | | | | | Sounds: crackles | | | | | | .Cough/Sputum: Patient | | | | | | had a productive cough. | | | | | | Secretions | | | | | | obtained:secretions | | | | | | swallowed.Outcome after | | | | | | therapy: There was | | | | | | moderate improvement in | | | | | | BS or work ofbreathing | | | | | | after therapy.Treatment | | | | | | Plan:No changes in | | | | | | therapy are | | | | | | indicated.Electronically | | | | | | Signed by: Heeln Cuba, | | | | | | [employer] | | | | + + + + + + + + | Specimen | + + | | + + + + + | Narrative | Performed At | + + + | Ordered by an unspecified provider. | [facility] | | | RESPIRATORY | | | THERAPY | + + + + + + + + | Performing | Address | City/State/Zipcode | Phone Number | | Organization | | | | + + + + + | [facility] RES[facility] | [address] [facility] | [place], [place] | | | THERAPY | [address] | [address] | | + + + + + | [facility] RES[facility] | [address] [facility] [address] | [place], [place] | | | THERAPY | [address] | [address] | | + + + + + CBC ONLY (10/30/2007 2:20 AM PDT) + + + + + + | Component | Value | Ref Range | Performed | Pathologist | | | | | At | Signature | + + + + + + | WHITE CELL | 15.4 (H) | 4.4 - 11.0 K/cu | [facility] | | | COUNT | | mm | DEPARTMENT | | | | | | OF | | | | | | PATHOLOGY | | + + + + + + | RED CELL | 3.33 (L) | 4.00 - 5.20 | [facility] | | | COUNT | | M/cu mm | DEPARTMENT | | | | | | OF | | | | | | PATHOLOGY | | + + + + + + | HEMOGLOBIN | 10.8 (L) | 12.0 - 16.0 | [facility] [...] + + + + | MCV | 94.3 | 80.0 - 96.0 fL | [facility] | | | | | | DEPARTMENT | | | | | | OF | | | | | | PATHOLOGY | | + + + + + + | MCHC | 34.2 | 33.4 - 35.5 | [facility] | | | | | g/dL | DEPARTMENT | | | | | | OF | | | | | | PATHOLOGY | | + + + + + + | RDW | 13.9 | 11.5 - 15.0 % | [facility] | | | | | | DEPARTMENT | | | | | | OF | | | | | | PATHOLOGY | | + + + + + + | PLATELET | 345 | 150 - 400 K/cu | [facility] [...] | + + + + + | [facility] OF | [address] | [place] [address] | | | PATHOLOGY | [address] | | | + + + + + | [facility] OF | [address] | [place] [address] | | | PATHOLOGY | [address] | | | + + + + + MAGNESIUM, PLASMA (10/30/2007 2:20 AM PDT) + +-------+ + + + [...] Blood | + + + + + | Narrative | Performed At | + + + | New Creatinine Reference ranges effective 07. | [facility] | | | DEPARTMENT OF | | | PATHOLOGY | + + + + + + + + | Performing | Address | City/State/Zipcode | Phone Number | | Organization | | | | + + + + + | [facility] | [address] [facility] | [place] [address] | | | PATHOLOGY | [address] | | | + + + + + | [facility] | [address] [place] [address] | [place] [address] | | | PATHOLOGY | [address] | | | + + + + + RENAL FUNCTION SET (NA,K,CL,CO2,BUN,CREAT,GLUC,CA,PHOS,ALB ) (10/30/2007 2:20 AM PDT) + + + + + + | Component | Value | Ref Range | Performed | Pathologist | | | | | At | Signature | + + + + + + | GLUCOSE, | 118 [...] + + + + | CREATININE | 0.59 (L) | 0.60 - 1.10 | [facility] | | | PLASMA | | mg/dL | DEPARTMENT | | | (LAB) | | | OF | | | | | | PATHOLOGY | | + + + + + + | ALBUMIN, | 2.9 (L) | 3.5 - 4.7 g/dL | [facility] | | | PLASMA | | | DEPARTMENT | | | (LAB) | | | OF | | | | | | PATHOLOGY | | + + + + + + | CALCIUM, | 8.6 | 8.6 - 10.2 | [facility] | | | PLASMA | | mg/dL | DEPARTMENT | | | (LAB) | | | OF | | | | | | PATHOLOGY | | + + + + + + | PHOSPHORUS, | 3.8 | 2.4 - 4.7 mg/dL | [facility] | | | PLASMA | | | DEPARTMENT | | | (LAB) | | | OF | | | | | | PATHOLOGY | | + + + + + + | SODIUM, | 135 | 134 - 143 | [facility] | | | PLASMA | | mmol/L | DEPARTMENT | | | (LAB) | | | OF | | | | | | PATHOLOGY | | + + + + + + | POTASSIUM, | 3.6 | 3.4 - 5.0 | [facility] | | | PLASMA | | mmol/L | DEPARTMENT | | | (LAB) | | | OF | | | | | | PATHOLOGY | | + + + + + + | CHLORIDE, | 105 [...] Blood | + + + + + | Narrative | Performed At | + + + | New Creatinine Reference ranges effective 07. | [facility] | | | DEPARTMENT OF | | | PATHOLOGY | + + + + + + + + | Performing | Address | City/State/Zipcode | Phone Number | | Organization | | | | + + + + + | [facility] DEPARTMENT OF | [address] | [place] [address] | | | PATHOLOGY | [address] | | | + + + + + | [facility] DEPARTMENT OF | [address] | [place] [address] | | | PATHOLOGY | [address] | | | + + + + + UA, SAL ONLY (10/30/2007 2:10 AM PDT) + + + + + [...] + + + + | APPEARANCE | Hazy | | [facility] | | | | [...] + + + + | SPECIFIC | 1.010 | 1.005 - 1.030 | [facility] | | | GRAVITY | | | DEPARTMENT | | | | | | OF | | | | | | PATHOLOGY | | + + + + + + | BLOOD | Trace | | [facility] | | | | | | DEPARTMENT | | | | | | OF | | | | | | PATHOLOGY | | + + + + + + | PH(UR) | 7.0 | 5.0 - 8.0 | [facility] | [...] + + + + | NITRITES | Negative | Negative | [facility] | [...] + + + + + | [facility] DEPARTMENT OF | [address] | [place] [address] | | | PATHOLOGY | [address] | | | + + + + + | [facility] DEPARTMENT OF | [address] | [place] [address] | | | PATHOLOGY | [address] | | | + + + + + SPECIFIC GRAVITY, BODY FLUID (10/30/2007 2:10 AM PDT) + +---------+ + + + | Component | Value | Ref Range | Performed | Pathologist | | | | | At | Signature | + +---------+ + + + | SPEC GRAV | Err req | | [facility] | | | BODY FLUID | | | DEPARTMENT | | | | | | OF | | | | | | PATHOLOGY | | + +---------+ + + + | TYPE OF | Err req | | [facility] | | | FLUID | | | DEPARTMENT | | | [...] | + + + + + | [facility] | [address] | [place] [address] | | | PATHOLOGY | [address] | | | + + + + + | [facility] | [address] [place] [address] [address] | [place] [address] | | | PATHOLOGY | [address] | | | + + + + + [facility] PORTABLE TRANSCRANIAL DOPPLER COMPLETE (10/30/2007 1:44 AM PDT) + + + + + + | Component | Value | Ref Range | Performed | Pathologist | | | | | At | Signature | + + + + + + | [facility] | Med Rec No:[id number] | | | | | PORTABLE | Name: | | | | | TRANSCRANIA | ONOFREGLORIA | | | | | L DOPPLER | Birthday: 1950 | | | | | COMPLETE | Sex: F | | | | | | Alias:Patient Location: | | | | | | 7NSIStatus: Inpatient | | | | | | ActiveOrdering | | | | | | Physician: | | | | | | ARIE,VTCDCPVL PORT | | | | | | TRANSCRANIAL DOP COMP | | | | | | completed on 10/30/2007 | | | | | | 6:52 AMAccession | | | | | | #[id number]:TRANSCRAN | | | | | | IAL DOPPLER STUDY: | | | | | | 10/30/2007 Dictated | | | | | | 10/31/2007INDICATION: | | | | | | Vasospasm.The blood | | | | | | pressure at the time of | | | | | | this examination is | | | | | | 144/46 mmHg.The duplex | | | | | | scanner was used to | | | | | | examine the ophthalmic, | | | | | | intracranial,internal | | | | | | carotid, middle | | | | | | cerebral, anterior | | | | | | cerebral, | | | | | | posteriorcerebral and | | | | | | intracranial vertebral | | | | | | arteries bilaterally. | | | | | | Thebasilar artery and | | | | | | extracranial internal | | | | | | carotid artery were | | | | | | alsoexamined.All of the | | | | | | above-noted vessels were | | | | | | patent with flows in | | | | | | the normaldirection.The | | | | | | maximum middle cerebral | | | | | | artery flow velocity on | | | | | | the right is 228cm/sec | | | | | | with a mean velocity of | | | | | | 147 cm/sec and a | | | | | | hemispheric ratio | | | | | | of3.97.The maximum | | | | | | middle cerebral artery | | | | | | flow velocity on the | | | | | | left is 142cm/sec with a | | | | | | mean velocity of 91 | | | | | | cm/sec and a hemispheric | | | | | | ratio | | | | | | of2.33.IMPRESSION:IMPRES | | | | | | ORI:Transcranial | | | | | | Doppler study with | | | | | | evidence of vasospasm in | | | | | | the middlecerebral | | | | | | distribution of the left | | | | | | hemisphere.END | | | | | | IMPRESSION:END | | | | | | IMPRESSIONI have | | | | | | personally viewed this | | | | | | procedure/exam and | | | | | | reviewed this | | | | | | report.STATUS FINAL / | | | | | | Dr. KALIA ERIC | | | | | | L.STATUS PRELIMINARY - | | | | | | UNSIGNED / [place] | | | | + + + + + + + + | Specimen | + + | | + + + +---------+ + + | Performing | Address | City/State/Zipcode | Phone Number | | Organization | | | | + +---------+ + + | [facility] DEPARTMENT OF | | | | | RADIOLOGY | | | | + +---------+ + + RESP CARE THERAPY (10/29/2007 10:34 PM PDT) + + + + + + | Component | Value | Ref Range | Performed | Pathologist | | | | | At | Signature | + + + + + + | RESPIRATORY | Pain Assessment:Patients | | [facility] | | | CARE | pain assessed and was a | | RESPIRATORY | | | | 0 on a scale of | | THERAPY | | | | 0-10.Interventions:Medic | | | | | | ation given via inhaler | | | | | | with Combivent 4 puffs . | | | | | | Total combined | | | | | | puffsgiven: 4 | | | | | | puffs.Assessment:Breath | | | | | | Sounds: diminished | | | | | | .Cough/Sputum: Patient | | | | | | had a non-productive | | | | | | cough.Outcome after | | | | | | therapy: There was no | | | | | | improvement in BS or | | | | | | work of breathingafter | | | | | | therapy.Treatment | | | | | | Plan:No changes in | | | | | | therapy are | | | | | | indicated.Nasal cannula | | | | | | at 2 LPM.Electronically | | | | | | Signed by: Silvia | | | | | | Justina, | | | | + + + + + + + + | Specimen | + + | | + + + + + | Narrative | Performed At | + + + | Ordered by an unspecified provider. | [facility] | | | RESPIRATORY | | | THERAPY | + + + + + + + + | Performing | Address | City/State/Zipcode | Phone Number | | Organization | | | | + + + + + | [facility] RES[facility] | [address] [facility] | [place], [place] | | | THERAPY | [employer] [facility] | [address] | | + + + + + | [facility] RES[facility] | [address] [facility] | [place], [place] | | | THERAPY | [facility] | [address] | | + + + + + SPECIFIC GRAVITY, BODY FLUID (10/29/2007 10:05 PM PDT) + +---------+ + + + | Component | Value | Ref Range | Performed | Pathologist | | | | | At | Signature | + +---------+ + + + | SPEC GRAV | Err req | | [facility] | | | BODY FLUID | | | DEPARTMENT | | | | | | OF | | | | | | PATHOLOGY | | + +---------+ + + + | TYPE OF | URN | | [facility] | | | FLUID | URN | | DEPARTMENT | | | | | | OF | | | | | | PATHOLOGY | | + +---------+ + + + + + | Specimen | + + | Urine - Urine | + + + + + | Narrative | Performed At | + + + | Order urine specific gravity as a dip stick. | [facility] | | | DEPARTMENT OF | | | PATHOLOGY | + + + + + + + + | Performing | Address | City/State/Zipcode | Phone Number | | Organization | | | | + + + + + | [facility] DEPARTMENT OF | [facility] | [place] [address] | | | PATHOLOGY | [address] | | | + + + + + | [facility] DEPARTMENT OF | [address] [facility] | [place] [address] | | | PATHOLOGY | [address] | | | + + + + + POTASSIUM, PLASMA (10/29/2007 5:00 PM PDT) + +-------+ + + + | Component | Value | Ref Range | Performed | Pathologist | | | | | At | Signature | + +-------+ + + + | POTASSIUM, | 4.3 [...] At | + + + | New Creatinine Reference ranges effective 07. | [facility] | | | DEPARTMENT OF | | | PATHOLOGY | + + + + + + + + | Performing | Address | City/State/Zipcode | Phone Number | | Organization | | | | + + + + + | [facility] DEPARTMENT OF | [address] [facility] | [place] [address] | | | PATHOLOGY | [address] | | | + + + + + | [facility] DEPARTMENT OF | [address] | [place] [address] | | | PATHOLOGY | [address] | | | + + + + + POTASSIUM, PLASMA (10/29/2007 5:00 PM PDT) + + + + + + | Component | Value | Ref Range | Performed | Pathologist | | | | | At | Signature | + + + + + + | POTASSIUM, | Combined. | 3.4 - 5.0 | [facility] | | | PLASMA | | mmol/L | DEPARTMENT | | | (LAB) | | | OF | | | | | | PATHOLOGY | | + + + + + + + + | Specimen | + + | Blood - Blood | + + + + + | Narrative | Performed At | + + + | New Creatinine Reference ranges effective 07. | [facility] | | Combined with request same date/time. | DEPARTMENT OF | | | PATHOLOGY | + + + + + + + + | Performing | Address | City/State/Zipcode | Phone Number | | Organization | | | | + + + + + | [facility] DEPARTMENT OF | [address] | [place] [address] | | | PATHOLOGY | [address] | | | + + + + + | [facility] DEPARTMENT OF | [address] | [place] [address] | | | PATHOLOGY | [address] | | | + + + + + SODIUM, PLASMA (10/29/2007 5:00 PM PDT) + +-------+ + + + | Component | Value | Ref Range | Performed | Pathologist | | | | | At | Signature | + +-------+ + + + | SODIUM, | 141 | 134 - 143 | [facility] | | | PLASMA | | mmol/L | DEPARTMENT | | | (LAB) | | | OF | | | | | | PATHOLOGY | | + +-------+ + + + + + | Specimen | + + | Blood - Blood | + + + + + | Narrative | Performed At | + + + | New Creatinine Reference ranges effective 07. | [facility] | | | DEPARTMENT OF | | | PATHOLOGY | + + + + + + + + | Performing | Address | City/State/Zipcode | Phone Number | | Organization | | | | + + + + + | [facility] DEPARTMENT OF | [address] | [place] [address] | | | PATHOLOGY | [address] | | | + + + + + | [facility] DEPARTMENT OF | [address] | [place] [address] | | | PATHOLOGY | [address] | | | + + + + + SPECIFIC GRAVITY, BODY FLUID (10/29/2007 4:05 PM PDT) + +---------+ + + + | Component | Value | Ref Range | Performed | Pathologist | | | | | At | Signature | + +---------+ + + + | SPEC GRAV | Err req | | [facility] | | | BODY FLUID | | | DEPARTMENT | | | | | | OF | | | | | | PATHOLOGY | | + +---------+ + + + | TYPE OF | URN | | [facility] | | | FLUID | URN | | DEPARTMENT | | | | | | OF | | | | | | PATHOLOGY | | + +---------+ + + + + + | Specimen | + + | Urine - Urine | + + + + + | Narrative | Performed At | + + + | INCORRECT ORDER | [facility] | | | DEPARTMENT OF | | | PATHOLOGY | + + + + + + + + | Performing | Address | City/State/Zipcode | Phone Number | | Organization | | | | + + + + + | [facility] DEPARTMENT OF | [address] | [place] [address] | | | PATHOLOGY | [address] | | | + + + + + | [facility] DEPARTMENT OF | [address] | [place] [address] | | | PATHOLOGY | [address] | | | + + + + + RESP CARE THERAPY (10/29/2007 1:10 PM PDT) + + + + + + | Component | Value | Ref Range | Performed | Pathologist | | | | | At | Signature | + + + + + + | RESPIRATORY | Pain Assessment:Patients | | [facility] | | | CARE | pain assessed and was a | | RESPIRATORY | | | | 0 on a scale of | | THERAPY | | | | 0-10.Interventions:Medic | | | | | | ation given via inhaler | | | | | | with Combivent 4 puffs . | | | | | | Total combined | | | | | | puffsgiven: 4 | | | | | | puffs.Assessment:Breath | | | | | | Sounds: rhonchi | | | | | | .Cough/Sputum: Patient | | | | | | had a productive cough. | | | | | | Secretions | | | | | | obtained:secretions | | | | | | swallowed.Outcome after | | | | | | therapy: Patient's work | | | | | | of breathing decreased | | | | | | after therapy.Treatment | | | | | | Plan:No changes in | | | | | | therapy are | | | | | | indicated.Electronically | | | | | | Signed by: Idalmis Bra, | | | | + + + + + + + + | Specimen | + + | | + + + + + | Narrative | Performed At | + + + | Ordered by an unspecified provider. | [facility] | | | RESPIRATORY | | | THERAPY | + + + + + + + + | Performing | Address | City/State/Zipcode | Phone Number | | Organization | | | | + + + + + | [facility] | [address] [facility] | [place], [place] | | | THERAPY | [address] | [phone] | | + + + + + | [facility] | [address] [facility] | [place], [place] | | | THERAPY | [address] | [phone] | | + + + + + SPECIFIC GRAVITY, BODY FLUID (10/29/2007 10:05 AM PDT) + +---------+ + + + | Component | Value | Ref Range | Performed | Pathologist | | | | | At | Signature | + +---------+ + + + | SPEC GRAV | Err req | | [facility] | | | BODY FLUID | | | DEPARTMENT | | | | | | OF | | | | | | PATHOLOGY | | + +---------+ + + + | TYPE OF | URN | | [facility] | | | FLUID | URN | | DEPARTMENT | | | | | | OF | | | | | | PATHOLOGY | | + +---------+ + + + + + | Specimen | + + | Urine - Urine | + + + + + | Narrative | Performed At | + + + | INCORRECT ORDER | [facility] | | | DEPARTMENT OF | | | PATHOLOGY | + + + + + + + + | Performing | Address | City/State/Zipcode | Phone Number | | Organization | | | | + + + + + | [facility] | [address] [facility] | [place] [address] | | | PATHOLOGY | [address] | | | + + + + + | [facility] | [address] [place] [address] | [place] [address] | | | PATHOLOGY | [address] | | | + + + + + RESP CARE THERAPY (10/29/2007 9:11 AM PDT) + + + + + + | Component | Value | Ref Range | Performed | Pathologist | | | | | At | Signature | + + + + + + | RESPIRATORY | Pain Assessment:Patients | | [facility] | | | CARE | pain assessed and was a | | RESPIRATORY | | | | 0 on a scale of | | THERAPY | | | | 0-10.Interventions:Medic | | | | | | ation given via inhaler | | | | | | with Combivent 4 puffs . | | | | | | Total combined | | | | | | puffsgiven: 4 | | | | | | puffs.Assessment:Breath | | | | | | Sounds: rhonchi | | | | | | .Cough/Sputum: Patient | | | | | | had a non-productive | | | | | | cough.Outcome after | | | | | | therapy: Patient's | | | | | | breath sounds improved | | | | | | after therapy.Treatment | | | | | | Plan:No changes in | | | | | | therapy are | | | | | | indicated.Electronically | | | | | | Signed by: Idalmis Bar, | | | | + + + + + + + + | Specimen | + + | | + + + + + | Narrative | Performed At | + + + | Ordered by an unspecified provider. | [facility] | | | RESPIRATORY | | | THERAPY | + + + + + + + + | Performing | Address | City/State/Zipcode | Phone Number | | Organization | | | | + + + + + | [facility] | [address] | [place], [place] | | | THERAPY | [address] | [address] | | + + + + + | [facility] | [address] | [place] | | | THERAPY | [address] | [address] | | + + + + + VASC LAB PORTABLE TRANSCRANIAL DOPPLER COMPLETE (10/29/2007 8:10 AM PDT) + + + + + + | Component | Value | Ref Range | Performed | Pathologist | | | | | At | Signature | + + + + + + | VASC LAB | Med Rec No:[id number] | | | | | PORTABLE | Name: | | | | | TRANSCRANIA | GLORIA ADHIKARI | | | | | L DOPPLER | Birthday: 1950 | | | | | COMPLETE | Sex: F | | | | | | Alias:Patient Location: | | | | | | 7NSIStatus: Inpatient | | | | | | ActiveOrdering | | | | | | Physician: | | | | | | AGNES SARGENT PORT | | | | | | TRANSCRANIAL DOP COMP | | | | | | completed on 10/29/2007 | | | | | | 12:55 PMAccession | | | | | | #[id number]:TRANSCRAN | | | | | | IAL DOPPLER STUDY: | | | | | | 10/29/2007 Dictated | | | | | | 10/31/2007INDICATION: | | | | | | Vasospasm.The blood | | | | | | pressure at the time of | | | | | | this examination was | | | | | | 124/57 mmHg.The | | | | | | ophthalmic, | | | | | | intracranial, internal | | | | | | carotid, middle | | | | | | cerebral,anterior | | | | | | cerebral, posterior | | | | | | cerebral and | | | | | | intracranial | | | | | | vertebralarteries were | | | | | | examined with the duplex | | | | | | scanner. The basilar | | | | | | arteryand extracranial | | | | | | internal carotid | | | | | | arteries were also | | | | | | examined.All of the | | | | | | above-noted vessels were | | | | | | patent with flows in | | | | | | the | | | | | | expecteddirection.The | | | | | | maximum middle cerebral | | | | | | artery flow velocity on | | | | | | the right is 296cm/sec | | | | | | with a mean velocity of | | | | | | 187 cm/sec and a | | | | | | calculatedhemispheric | | | | | | ratio of 5.5. There is | | | | | | also a mean flow | | | | | | velocity of 131cm/sec in | | | | | | the anterior cerebral | | | | | | artery on the right. | | | | | | On the leftside, the | | | | | | maximum middle cerebral | | | | | | artery flow velocity is | | | | | | 144 cm/secwith a mean | | | | | | velocity of 89 cm/sec | | | | | | and a calculated | | | | | | hemispheric ratioof | | | | | | 2.07.IMPRESSION:IMPRESSI | | | | | | ON:Abnormal transcranial | | | | | | Doppler study with | | | | | | evidence of | | | | | | vasospasminvolving the | | | | | | middle cerebral artery | | | | | | distribution of the | | | | | | righthemisphere. There | | | | | | may also be vasospasm | | | | | | in the anterior | | | | | | cerebraldistribution of | | | | | | the right hemisphere. | | | | | | There does not appear | | | | | | to bevasospasm in the | | | | | | left hemisphere.END | | | | | | IMPRESSION:END | | | | | | IMPRESSIONI have | | | | | | personally viewed this | | | | | | procedure/exam and | | | | | | reviewed this | | | | | | report.STATUS FINAL / | | | | | | Dr. KALIA ERIC | | | | | | L.STATUS PRELIMINARY - | | | | | | UNSIGNED / [place] | | | | + + + + + + + + | Specimen | + + | | + + + +---------+ + + | Performing | Address | City/State/Zipcode | Phone Number | | Organization | | | | + +---------+ + + | [facility] DEPARTMENT OF | | | | | RADIOLOGY | | | | + +---------+ + + CT HEAD WO CONTRAST (10/29/2007 3:58 AM PDT) + + + + + + | Component | Value | Ref Range | Performed | Pathologist | | | | | At | Signature | + + + + + + | CT HEAD WO | Examination: CT of head | | | | | CONTRAST | without | | | | | | contrast.Comparison: CT | | | | | | from 10/28/2007.History: | | | | | | Postoperative | | | | | | evaluation.Technique: | | | | | | Multiple routine axial | | | | | | CT images were obtained | | | | | | through thehead without | | | | | | contrast at 4.5 mm | | | | | | collimation.Findings: | | | | | | The right frontal | | | | | | intraventricular | | | | | | drainage catheter | | | | | | andventricular volumes | | | | | | are stable. The left | | | | | | frontal lobe | | | | | | hypodensitywithin the | | | | | | white matter is | | | | | | unchanged. The | | | | | | subarachnoid | | | | | | andintraventricular | | | | | | blood is unchanged and | | | | | | no new hemorrhage | | | | | | isidentified. The | | | | | | scalp swelling overlying | | | | | | the right frontal | | | | | | temporalcraniotomy site | | | | | | remains thickened yet | | | | | | unchanged.Impression:1. | | | | | | Stable left frontal | | | | | | lobe hypodensity.2. | | | | | | Stable perioperative | | | | | | right frontal scalp | | | | | | thickening.3. Stable | | | | | | intracranial hemorrhage | | | | | | and ventricular | | | | | | volumes.I have | | | | | | personally viewed this | | | | | | procedure/exam and | | | | | | reviewed this | | | | | | report.STATUS FINAL / | | | | | | Dr. MANDIE MARTINES | | | | | | ESTATUS PENDING FINAL | | | | | | APPROVAL / Dr. SAMS | | | | | | KAMARI | | | | + + + + + + + + | Specimen | + + | | + + + +---------+ + + | Performing | Address | City/State/Zipcode | Phone Number | | Organization | | | | + +---------+ + + | [facility] DEPARTMENT OF | | | | | RADIOLOGY | | | | + +---------+ + + RESP CARE THERAPY (10/29/2007 3:51 AM PDT) + + + + + + | Component | Value | Ref Range | Performed | Pathologist | | | | | At | Signature | + + + + + + | RESPIRATORY | Nasal cannula at 2 | | [facility] | | | CARE | LPM.Electronically | | RESPIRATORY | | | | Signed by: Kiera | | THERAPY | | | | Jordan RT | | | | + + + + + + + + | Specimen | + + | | + + + + + | Narrative | Performed At | + + + | Ordered by an unspecified provider. | [facility] | | | RESPIRATORY | | | THERAPY | + + + + + + + + | Performing | Address | City/State/Zipcode | Phone Number | | Organization | | | | + + + + + | [facility] | [address] [facility] | [place], [place] | | | THERAPY | [address] | [address] | | + + + + + | [facility] | [address] [facility] | [place], [place] | | | THERAPY | [address] | [address] | | + + + + + SPECIFIC GRAVITY, BODY FLUID (10/29/2007 12:01 AM PDT) + + + + + + | Component | Value | Ref Range | Performed | Pathologist | | | | | At | Signature | + + + + + + | SPEC GRAV | See cmnt | | [facility] | | | BODY FLUID | | | DEPARTMENT | | | | | | OF | | | | | | PATHOLOGY | | + + + + + + | TYPE OF | URN | | [facility] | | | FLUID | URN | | DEPARTMENT | | | | | | OF | | | | | | PATHOLOGY | | + + + + + + + + | Specimen | + + | Urine - Urine | + + + + + | Narrative | Performed At | + + + | Incorrect order | [facility] | | | DEPARTMENT OF | | | PATHOLOGY | + + + + + + + + | Performing | Address | City/State/Zipcode | Phone Number | | Organization | | | | + + + + + | [facility] DE[facility]MENT [facility] | [address] [facility] | [place] [address] | | | PATHOLOGY | [address] | | | + + + + + | [facility] DEPARTMENT OF | [address] [facility] | [place] [address] | | | PATHOLOGY | [address] | | | + + + + + CBC ONLY (10/29/2007 12:01 AM PDT) + + + + + + | Component | Value | Ref Range | Performed | Pathologist | | | | | At | Signature | + + + + + + | WHITE CELL | 16.4 (H) | 4.4 - 11.0 K/cu | [...] + + + + | HEMATOCRIT | 30.1 (L) | 36.0 - 46.0 % | [facility] | | | | | | DEPARTMENT | | | | | | OF | | | | | | PATHOLOGY | | + + + + + + | MCV | 95.2 | 80.0 - 96.0 fL | [facility] [...] + + + + | RDW | 13.7 | 11.5 - 15.0 % | [facility] | | | | | | DEPARTMENT | | | | | | OF | | | | | | PATHOLOGY | | + + + + + + | PLATELET | 318 | 150 - 400 K/cu | [facility] [...] DEPARTMENT OF | [address] | [place] [address] | | | PATHOLOGY | [address] | | | + + + + + | [facility] DEPARTMENT | [address] | [place] [address] | | | PATHOLOGY | [address] | | | + + + + + MAGNESIUM, PLASMA (10/29/2007 12:01 AM PDT) + +-------+ + + + | Component | Value | Ref Range | Performed | Pathologist | | | | | At | Signature | + +-------+ + + + | MAGNESIUM,P | 1.9 | 1.8 - 2.5 mg/dL | [facility] | | | LASMA | | | DEPARTMENT | | | | | | OF | | | | | | PATHOLOGY | | + +-------+ + + + + + | Specimen | + + | Blood - Blood | + + + + + | Narrative | Performed At | + + + | New Creatinine Reference ranges effective 07. | [facility] | | | DEPARTMENT OF | | | PATHOLOGY | + + + + + + + + | Performing | Address | City/State/Zipcode | Phone Number | | Organization | | | | + + + + + | [facility] DEPARTMENT OF | [address] | [place] [address] | | | PATHOLOGY | [address] | | | + + + + + | [facility] DEPARTMENT OF | [address] | [place] [address] | | | PATHOLOGY | [address] | | | + + + + + RENAL FUNCTION SET (NA,K,CL,CO2,BUN,CREAT,GLUC,CA,PHOS,ALB ) (10/29/2007 12:01 AM PDT) + +---------+ + + + | Component | Value | Ref Range | Performed | Pathologist | | | | | At | Signature | + +---------+ + + + | GLUCOSE, | 116 (H) | 60 - 99 mg/dL | [facility] | | | PLASMA | | | DEPARTMENT | | | (LAB) | | | OF | | | | | | PATHOLOGY | | + +---------+ + + + | BUN, PLASMA | 7 | 6 - 20 mg/dL | [facility] | | | (LAB) | | | DEPARTMENT | | | | | | OF | | | | | | PATHOLOGY | | + +---------+ + + + | CREATININE | 0.62 | 0.60 - 1.10 | [facility] | | | PLASMA | | mg/dL | DEPARTMENT | | | (LAB) | | | OF | | | | | | PATHOLOGY | | + +---------+ + + + | ALBUMIN, | 2.8 (L) | 3.5 - 4.7 g/dL | [...] + + | SODIUM, | 139 | 134 - 143 | [facility] | | | PLASMA | | mmol/L | DEPARTMENT | | | (LAB) | | | OF | | | | | | PATHOLOGY | | + +---------+ + + + | POTASSIUM, | 3.2 (L) | 3.4 - 5.0 | [facility] | [...] + | TOTAL CO2, | 26 | 23 - 31 mmol/L | [facility] | | | PLASMA | | | DEPARTMENT | | | (LAB) | | | OF | | | | | | PATHOLOGY | | + +---------+ + + + + + | Specimen | + + | Blood - Blood | + + + + + | Narrative | Performed At | + + + | New Creatinine Reference ranges effective 07. | [facility] | | | DEPARTMENT OF | | | PATHOLOGY | + + + + + + + + | Performing | Address | City/State/Zipcode | Phone Number | | Organization | | | | + + + + + | [facility] | [address] [facility] [facility] | [place] [address] | | | PATHOLOGY | [address] | | | + + + + + | [facility] | [address] [place] [address] | [place] [address] | | | PATHOLOGY | [address] | | | + + + + + SAL RAHMAN ONLY (10/28/2007 10:05 PM PDT) + + + + + + | Component | Value | Ref Range | Performed | Pathologist | | | | | At | Signature | + + + + + + | COLOR(UR) | Straw | | [facility] | | | | [...] + + + + | SPECIFIC | <=1.005 | 1.005 - 1.030 | [facility] | | | GRAVITY | | | DEPARTMENT | | | | | | OF | | | | | | PATHOLOGY | | + + + + + + | BLOOD | Trace | | [facility] | | | | | | DEPARTMENT | | | | | | OF | | | | | | PATHOLOGY | | + + + + + + | PH(UR) | 6.5 | 5.0 - 8.0 | [facility] | [...] + + + + | NITRITES | Negative | Negative | [facility] | [...] | + + + + + | [facility] | [address] [facility] [facility] | [place] [address] | | | PATHOLOGY | [address] | | | + + + + + | [facility] | [address] [facility] | [place] [address] | | | PATHOLOGY | [address] | | | + + + + + SPECIFIC GRAVITY, BODY FLUID (10/28/2007 10:05 PM PDT) + +---------+ + + + | Component | Value | Ref Range | Performed | Pathologist | | | | | At | Signature | + +---------+ + + + | SPEC GRAV | Err req | | [facility] | | | BODY FLUID | | | DEPARTMENT | | | | | | OF | | | | | | PATHOLOGY | | + +---------+ + + + | TYPE OF | URN | | [facility] | | | FLUID | URN | | DEPARTMENT | | | | [...] DEPARTMENT OF | [address] | [place] [address] | | | PATHOLOGY | [address] | | | + + + + + | [facility] DEPARTMENT | [address] | [place] [address] | | | PATHOLOGY | [address] | | | + + + + + RESP CARE THERAPY (10/28/2007 9:34 PM PDT) + + + + + + | Component | Value | Ref Range | Performed | Pathologist | | | | | At | Signature | + + + + + + | RESPIRATORY | Pain Assessment:Patients | | [facility] | | | CARE | pain assessed and was a | | RESPIRATORY | | | | 0 on a scale of | | THERAPY | | | | 0-10.Interventions:Medic | | | | | | ation given via inhaler | | | | | | with Combivent 4 puffs . | | | | | | Total combined | | | | | | puffsgiven: 4 | | | | | | puffs.Assessment:Breath | | | | | | Sounds: diminished in | | | | | | the bases .Cough/Sputum: | | | | | | Patient had a | | | | | | non-productive | | | | | | cough.Outcome after | | | | | | therapy: There was no | | | | | | improvement in BS or | | | | | | work of breathingafter | | | | | | therapy.Treatment | | | | | | Plan:No changes in | | | | | | therapy are | | | | | | indicated.Electronically | | | | | | Signed by: Kiera | | | | | | RT Jordan | | | | + + + + + + + + | Specimen | + + | | + + + + + | Narrative | Performed At | + + + | Ordered by an unspecified provider. | [facility] | | | RESPIRATORY | | | THERAPY | + + + + + + + + | Performing | Address | City/State/Zipcode | Phone Number | | Organization | | | | + + + + + | [facility] RES[facility] | [address] | [place], [place] | | | THERAPY | [address] | [address] | | + + + + + | [facility] | [address] | [place], [place] | | | THERAPY | [address] | [address] | | + + + + + SODIUM, PLASMA (10/28/2007 5:00 PM PDT) + +-------+ + + + | Component | Value | Ref Range | Performed | Pathologist | | | | | At | Signature | + +-------+ + + + | SODIUM, | 139 | 134 - 143 | [facility] | | | PLASMA | | mmol/L | DEPARTMENT | | | (LAB) | | | OF | | | | | | PATHOLOGY | | + +-------+ + + + + + | Specimen | + + | | + + + + + | Narrative | Performed At | + + + | New Creatinine Reference ranges effective 07. | [facility] | | | DEPARTMENT OF | | | PATHOLOGY | + + + + + + + + | Performing | Address | City/State/Zipcode | Phone Number | | Organization | | | | + + + + + | [facility] | [address] | [place] [address] | | | PATHOLOGY | [address] | | | + + + + + | [facility] | [facility] [address] | [place] [address] | | | PATHOLOGY | [address] | | | + + + + + POTASSIUM, PLASMA (10/28/2007 5:00 PM PDT) + +---------+ + + + | Component | Value | Ref Range | Performed | Pathologist | | | | | At | Signature | + +---------+ + + + | POTASSIUM, | 3.2 (L) | 3.4 - 5.0 | [facility] | | | PLASMA | | mmol/L | DEPARTMENT | | | (LAB) | | | OF | | | | | | PATHOLOGY | | + +---------+ + + + + + | Specimen | + + | Blood - Blood | + + + + + | Narrative | Performed At | + + + | New Creatinine Reference ranges effective 07. | [facility] | | | DEPARTMENT OF | | | PATHOLOGY | + + + + + + + + | Performing | Address | City/State/Zipcode | Phone Number | | Organization | | | | + + + + + | [facility] DEPARTMENT OF | [facility] | [place] [address] | | | PATHOLOGY | [address] | | | + + + + + | [facility] DE[facility] OF | [facility] | [place] [address] | | | PATHOLOGY | [address] | | | + + + + + SODIUM, PLASMA (10/28/2007 5:00 PM PDT) + + + + + + | Component | Value | Ref Range | Performed | Pathologist | | | | | At | Signature | + + + + + + | SODIUM, | Combined. | 134 - 143 | [facility] | | | PLASMA | | mmol/L | DEPARTMENT | | | (LAB) | | | OF | | | | | | PATHOLOGY | | + + + + + + + + | Specimen | + + | Blood - Blood | + + + + + | Narrative | Performed At | + + + | New Creatinine Reference ranges effective 07. | [facility] | | Combined with request same date/time. | DEPARTMENT OF | | | PATHOLOGY | + + + + + + + + | Performing | Address | City/State/Zipcode | Phone Number | | Organization | | | | + + + + + | [facility] DEPARTMENT OF | [address] [facility] | [place] [address] | | | PATHOLOGY | [address] | | | + + + + + | [facility] DEPARTMENT OF | [address] [facility] | [place] [address] | | | PATHOLOGY | [address] | | | + + + + + SPECIFIC GRAVITY, BODY FLUID (10/28/2007 4:05 PM PDT) + + + + + + | Component | Value | Ref Range | Performed | Pathologist | | | | | At | Signature | + + + + + + | SPEC GRAV | Not Recd | | [facility] | | | BODY FLUID | | | DEPARTMENT | | | | | | OF | | | | | | PATHOLOGY | | + + + + + + | TYPE OF | URN | | [facility] | | | FLUID | URN | | DEPARTMENT | | | | [...] | + + + + + | [facility] | [address] | [place] [address] | | | PATHOLOGY | [address] | | | + + + + + | [facility] | [address] [place] [address] [address] | [place] [address] | | | PATHOLOGY | [address] | | | + + + + + RESP CARE THERAPY (10/28/2007 1:12 PM PDT) + + + + + + | Component | Value | Ref Range | Performed | Pathologist | | | | | At | Signature | + + + + + + | RESPIRATORY | Pain Assessment:Patients | | [facility] | | | CARE | pain assessed and was a | | RESPIRATORY | | | | 0 on a scale of | | THERAPY | | | | 0-10.Interventions:Medic | | | | | | ation given via inhaler | | | | | | with Combivent 4 puffs . | | | | | | Total combined | | | | | | puffsgiven: 4 | | | | | | puffs.Assessment:Breath | | | | | | Sounds: clear | | | | | | .Cough/Sputum: Patient | | | | | | had no cough at this | | | | | | time.Outcome after | | | | | | therapy: Patient's work | | | | | | of breathing decreased | | | | | | after therapy.Treatment | | | | | | Plan:No changes in | | | | | | therapy are | | | | | | indicated.Electronically | | | | | | Signed by: Idalmis Bar, | | | | + + + + + + + + | Specimen | + + | | + + + + + | Narrative | Performed At | + + + | Ordered by an unspecified provider. | [facility] | | | RESPIRATORY | | | THERAPY | + + + + + + + + | Performing | Address | City/State/Zipcode | Phone Number | | Organization | | | | + + + + + | [facility] RES[facility] | [address] | [place], [place] | | | THERAPY | [address] | [address] | | + + + + + | [facility] RES[facility] | [address] | [place], [place] | | | THERAPY | [facility] | [address] | | + + + + + SPECIFIC GRAVITY URINE, POC RESULT (10/28/2007 11:00 AM PDT) + +-------+ + + + | Component | Value | Ref Range | Performed | Pathologist | | | | | At | Signature | + +-------+ + + + | SPECIFIC | 1.005 | 1.002 - 1.03 | | | | GRAVITY, | | | | | | RANDOM UR | | | | | | POC | | | | | + +-------+ + + + SPECIFIC GRAVITY, BODY FLUID (10/28/2007 10:05 AM PDT) + +---------+ + + + | Component | Value | Ref Range | Performed | Pathologist | | | | | At | Signature | + +---------+ + + + | SPEC GRAV | Err req | | [facility] | | | BODY FLUID | | | DEPARTMENT | | | | | | OF | | | | | | PATHOLOGY | | + +---------+ + + + | TYPE OF | URN | | [facility] | | | FLUID | URN | | DEPARTMENT | | | | [...] + + + + + | [facility] DEPARTMENT OF | [address] | [place] [address] | | | PATHOLOGY | [address] | | | + + + + + | [facility] DEPARTMENT OF | [address] | [place] [address] | | | PATHOLOGY | [address] | | | + + + + + RESP CARE THERAPY (10/28/2007 9:11 AM PDT) + + + + + + | Component | Value | Ref Range | Performed | Pathologist | | | | | At | Signature | + + + + + + | RESPIRATORY | Pain Assessment:Patients | | [facility] | | | CARE | pain assessed and was a | | RESPIRATORY | | | | 0 on a scale of | | THERAPY | | | | 0-10.Interventions:Medic | | | | | | ation given via inhaler | | | | | | with Combivent 4 puffs . | | | | | | Total combined | | | | | | puffsgiven: 4 | | | | | | puffs.Assessment:Breath | | | | | | Sounds: rhonchi upper | | | | | | airway .Cough/Sputum: | | | | | | Patient had no cough at | | | | | | this time.Outcome after | | | | | | therapy: There was no | | | | | | improvement in BS or | | | | | | work of breathingafter | | | | | | therapy.Treatment | | | | | | Plan:No changes in | | | | | | therapy are | | | | | | indicated.Electronically | | | | | | Signed by: Idalims Bar, | | | | + + + + + + + + | Specimen | + + | | + + + + + | Narrative | Performed At | + + + | Ordered by an unspecified provider. | [facility] | | | RESPIRATORY | | | THERAPY | + + + + + + + + | Performing | Address | City/State/Zipcode | Phone Number | | Organization | | | | + + + + + | [facility] RES[facility] | [address] | [place], [place] | | | THERAPY | [address] | [address] | | + + + + + | [facility] RES[facility] | [address] | [place], [place] | | | THERAPY | [address] | [address] | | + + + + + FREDERIC MARIE STAT (10/28/2007 9:11 AM PDT) + + + + + + | Component | Value | Ref Range | Performed | Pathologist | | | | | At | Signature | + + + + + + | GRAM SMEAR | Moderate White blood | | [facility] | | | ONLY-[facility] | cells presentNo | | DEPARTMENT | | | | organisms seen. | | OF | | | [...] | + + + + + | [facility] | [address] [facility] | [place] [address] | | | PATHOLOGY | [address] | | | + + + + + | [facility] | [address] [place] [address] | [place] [address] | | | PATHOLOGY | [address] | | | + + + + + CSF INFO PANEL (10/28/2007 9:11 AM PDT) + + + + + + | Component | Value | Ref Range | Performed | Pathologist | | | | | At | Signature | + + + + + + | CSF | Brown | Clear | [facility] | | | APPEARANCE | | | DEPARTMENT | | | | | | OF | | | | | | PATHOLOGY | | + + + + + + | CSF TUBE | Other | | [facility] | | | NUMBER | | | DEPARTMENT | | | | | | OF | | | | | | PATHOLOGY | | + + + + + + | CSF COLOR | Mod Xantho | Colorless | [facility] | | | [...] | + + + + + | [facility] | [address] [facility] | [place] [address] | | | PATHOLOGY | [address] | | | + + + + + | [facility] | [address] [place] [address] | [place] [address] | | | PATHOLOGY | [address] | | | + + + + + CULTURE, CSF BACTI (10/28/2007 9:11 AM PDT) + + + + + [...] at | | | | | | [facility]. Culture: | | | | | | Final Report: No | | | | | | growth after 3 days. | | | | | | Final ReportComment: | | | | | | Test performed at [facility] | | | | | | [facility] | | | | | | Laboratory. | | | | + + + + + + + + | Specimen | + + | Cerebrospinal fluid | + + + + + + + | Performing | Address | City/State/Zipcode | Phone Number | | Organization | | | | + + + + + | [facility] | [address] | [place] [address] | | | LAB-MICRO | | | | + + + + + PROTEIN, CSF (10/28/2007 9:11 AM PDT) + +--------+ + + + | Component | Value | Ref Range | Performed | Pathologist | | | | | At | Signature | + +--------+ + + + | TOTAL | 92 (H) | 15 - 45 mg/dL | [...] + + + + + | [facility] DEPARTMENT OF | [address] [address] [facility] | [place] [address] | | | PATHOLOGY | [address] | | | + + + + + | [facility] DEPARTMENT OF | [address] [facility] [address] [facility] | [place] [address] | | | PATHOLOGY | [address] | | | + + + + + GLUCOSE, CSF (10/28/2007 9:11 AM PDT) + +-------+ + + + | Component | Value | Ref Range | Performed | Pathologist | | | | | At | Signature | + +-------+ + + + | GLUCOSE CSF | 59 | 40 - 70 mg/dL | [facility] [...] + + + + + | [facility] DEPARTMENT OF | [address] | [place] [address] | | | PATHOLOGY | [address] | | | + + + + + | [facility] DEPARTMENT OF | [address] | [place] [address] | | | PATHOLOGY | [address] | | | + + + + + CELL COUNT DIFF, CSF (10/28/2007 9:11 AM PDT) + +--------+ + + + | Component | Value | Ref Range | Performed | Pathologist | | | | | At | Signature | + +--------+ + + + | CSF WBC | 10 (H) | <6 /cu mm | [facility] | | | | | | DEPARTMENT | | | | | | OF | | | | | | PATHOLOGY | | + +--------+ + + + | CSF RBC | 3525 | /cu mm | [facility] | | [...] +--------+ + + + | NEUTROPHIL( | 9 (H) | <7 % | [facility] | | | CSF) | | | DEPARTMENT | | | | | | OF | | | | | | PATHOLOGY | | + +--------+ + + + | LYMPHOCYTES | 45 | 40 - 80 % | [facility] | | | (CSF) | | | DEPARTMENT | | | | | | OF | | | | | | PATHOLOGY | | + +--------+ + + + | MONOCYTES(C | 46 (H) | 15 - 45 % | [facility] [...] | + + + + + | [facility] DEPARTMENT OF | [address] | [place] [address] | | | PATHOLOGY | [address] | | | + + + + + | [facility] | [address] | [place] [address] | | | PATHOLOGY | [address] | | | + + + + + VASC LAB PORTABLE TRANSCRANIAL DOPPLER COMPLETE (10/28/2007 8:14 AM PDT) + + + + + + | Component | Value | Ref Range | Performed | Pathologist | | | | | At | Signature | + + + + + + | VASC LAB | Med Rec No:[id number] | | | | | PORTABLE | Name: | | | | | TRANSCRANIA | GLORIA ADHIKARI | | | | | L DOPPLER | Birthday: 1950 | | | | | COMPLETE | Sex: F | | | | | | Alias:Patient Location: | | | | | | 7NSIStatus: Inpatient | | | | | | ActiveOrdering | | | | | | Physician: | | | | | | AGNES SARGENT PORT | | | | | | TRANSCRANIAL DOP COMP | | | | | | completed on 10/28/2007 | | | | | | 12:09 PMAccession | | | | | | #[id number]:TRANSCRAN | | | | | | IAL DOPPLER EVALUATION: | | | | | | 10/28/2007 Dictated | | | | | | 10/28/2007FINDINGS: A | | | | | | transcranial Doppler | | | | | | evaluation is performed | | | | | | bilaterallyof the extra- | | | | | | and intracranial | | | | | | internal carotid | | | | | | arteries, theanterior, | | | | | | middle, and posterior | | | | | | cerebral arteries, the | | | | | | vertebralarteries, and | | | | | | the basilar artery. In | | | | | | the right hemisphere | | | | | | there areelevated mean | | | | | | velocities in the middle | | | | | | cerebral artery at | | | | | | 170-196cm/sec. All | | | | | | remaining mean | | | | | | velocities in the right | | | | | | hemisphere areless than | | | | | | 120 cm/sec The right | | | | | | hemispheric ratio is | | | | | | 5.02. In theleft | | | | | | hemisphere there is an | | | | | | elevated mean velocity | | | | | | in the | | | | | | parasellarintracranial | | | | | | internal carotid artery | | | | | | at 155 cm/sec. All | | | | | | remainingmean velocities | | | | | | in the left hemisphere | | | | | | are less than 120 | | | | | | cm/sec. Theleft middle | | | | | | cerebral artery mean | | | | | | velocity is 87 cm/sec | | | | | | with ahemispheric ratio | | | | | | of 2.35.IMPRESSION:The | | | | | | right hemispheric | | | | | | examination is abnormal | | | | | | with evidence of | | | | | | middlecerebral artery | | | | | | vasospasm. In the left | | | | | | hemisphere there is | | | | | | evidenceof vasospasm | | | | | | versus hyperdynamic flow | | | | | | in the left | | | | | | parasellarintracranial | | | | | | internal carotid artery. | | | | | | The left middle | | | | | | cerebralartery appears | | | | | | normal.END IMPRESSIONI | | | | | | have personally viewed | | | | | | this procedure/exam and | | | | | | reviewed this | | | | | | report.STATUS FINAL / | | | | | | Dr. JASPREET ERIC | | | | | | LEELEE PRELIMINARY | | | | | | - UNSIGNED / Andrzej | | | | | | Katiana | | | | + + + [...] | | + +---------+ + + X-RAY PORTABLE CHEST 1 VIEW (10/28/2007 8:09 AM PDT) + + + + + + | Component | Value | Ref Range | Performed | Pathologist | | | | | At | Signature | + + + + + + | X-RAY | EXAM: AP chestHISTORY: | | | | | PORTABLE | FeverCOMPARISON: | | | | | CHEST 1 | Yesterday.FINDINGS:The | | | | | VIEW | enteric tube is been | | | | | | removed. Left | | | | | | subclavian vascular | | | | | | catheteris unchanged. | | | | | | Lung volumes are | | | | | | improved with persistent | | | | | | mildbibasilar | | | | | | atelectasis. No focal | | | | | | consolidation is seen. | | | | | | There may kaitlyn small | | | | | | residual right pleural | | | | | | effusion, but these have | | | | | | improved.Cardiac | | | | | | silhouette is | | | | | | normal.IMPRESSION:1. | | | | | | Improved lung volumes | | | | | | with persistent mild | | | | | | bibasilar atelectasis.2. | | | | | | Improved pleural | | | | | | effusions, resolved on | | | | | | the left and tiny on | | | | | | theright.I have | | | | | | personally viewed this | | | | | | procedure/exam and | | | | | | reviewed this | | | | | | report.STATUS FINAL / | | | | | | Dr. BLOSSOM CABA | | | | | | FINAL / - -STATUS | | | | | | PRELIMINARY - UNSIGNED / | | | | | | - - | | | | + + + + + + + + | Specimen | + + | | + + + +---------+ + + | Performing | Address | City/State/Zipcode | Phone Number | | Organization | | | | + +---------+ + + | [facility] | | | | | RADIOLOGY | | | | + +---------+ + + SODIUM, PLASMA (10/28/2007 8:00 AM PDT) + +-------+ + + + | Component | Value | Ref Range | Performed | Pathologist | | | | | At | Signature | + +-------+ + + + | SODIUM, | 141 | 134 - 143 | [facility] | | | PLASMA | | mmol/L | DEPARTMENT | | | (LAB) | | | OF | | | | | | PATHOLOGY | | + +-------+ + + + + + | Specimen | + + | | + + + + + | Narrative | Performed At | + + + | New Creatinine Reference ranges effective 07. | [facility] | | | DEPARTMENT OF | | | PATHOLOGY | + + + + + + + + | Performing | Address | City/State/Zipcode | Phone Number | | Organization | | | | + + + + + | [facility] DEPARTMENT OF | [address] | [place] [address] | | | PATHOLOGY | [address] | | | + + + + + | [facility] OF | [address] | [place] [address] | | | PATHOLOGY | [address] | | | + + + + + POTASSIUM, PLASMA (10/28/2007 8:00 AM PDT) + +-------+ + + + | Component | Value | Ref Range | Performed | Pathologist | | | | | At | Signature | + +-------+ + + + | POTASSIUM, | 3.4 | 3.4 - 5.0 | [facility] | | | PLASMA | | mmol/L | DEPARTMENT | | | (LAB) | | | OF | | | | | | PATHOLOGY | | + +-------+ + + + + + | Specimen | + + | Blood - Blood | + + + + + | Narrative | Performed At | + + + | New Creatinine Reference ranges effective 07. | [facility] | | | DEPARTMENT OF | | | PATHOLOGY | + + + + + + + + | Performing | Address | City/State/Zipcode | Phone Number | | Organization | | | | + + + + + | [facility] DEPARTMENT OF | [address] | [place] [address] | | | PATHOLOGY | [address] | | | + + + + + | [facility] DEPARTMENT OF | [address] | [place] [address] | | | PATHOLOGY | [address] | | | + + + + + SODIUM, PLASMA (10/28/2007 8:00 AM PDT) + + + + + + | Component | Value | Ref Range | Performed | Pathologist | | | | | At | Signature | + + + + + + | SODIUM, | Combined. | 134 - 143 | [facility] | | | PLASMA | | mmol/L | DEPARTMENT | | | (LAB) | | | OF | | | | | | PATHOLOGY | | + + + + + + + + | Specimen | + + | Blood - Blood | + + + + + | Narrative | Performed At | + + + | New Creatinine Reference ranges effective 07. | [facility] | | Combined with request same date/time. | DEPARTMENT OF | | | PATHOLOGY | + + + + + + + + | Performing | Address | City/State/Zipcode | Phone Number | | Organization | | | | + + + + + | [facility] DEPARTMENT OF | [address] | [place] [address] | | | PATHOLOGY | [address] | | | + + + + + | [facility] DEPARTMENT | [address] | [place] [address] | | | PATHOLOGY | [address] | | | + + + + + RESP CARE THERAPY (10/28/2007 5:05 AM PDT) + + + + + + | Component | Value | Ref Range | Performed | Pathologist | | | | | At | Signature | + + + + + + | RESPIRATORY | Nasal cannula at 4 | | [facility] | | | CARE | LPM.Electronically | | RESPIRATORY | | | | Signed by: Kiera | | THERAPY | | | | RT Jordan | | | | + + + + + + + + | Specimen | + + | | + + + + + | Narrative | Performed At | + + + | Ordered by an unspecified provider. | [facility] | | | RESPIRATORY | | | THERAPY | + + + + + + + + | Performing | Address | City/State/Zipcode | Phone Number | | Organization | | | | + + + + + | [facility] RESPIRATORY | [address] | [place], [place] | | | THERAPY | [address] | [address] | | + + + + + | [facility] RES[facility] | [address] | [place], [place] | | | THERAPY | [facility] | [address] | | + + + + + SPECIFIC GRAVITY URINE, POC RESULT (10/28/2007 5:01 AM PDT) + +-------+ + + + | Component | Value | Ref Range | Performed | Pathologist | | | | | At | Signature | + +-------+ + + + | SPECIFIC | 1.007 | 1.002 - 1.03 | | | | GRAVITY, | | | | | | RANDOM UR | | | | | | POC | | | | | + +-------+ + + + SPECIFIC GRAVITY URINE, POC RESULT (10/28/2007 3:21 AM PDT) + +-------+ + + + | Component | Value | Ref Range | Performed | Pathologist | | | | | At | Signature | + +-------+ + + + | SPECIFIC | 1.002 | 1.002 - 1.03 | | | | GRAVITY, | | | | | | RANDOM UR | | | | | | POC | | | | | + +-------+ + + + CT HEAD WO CONTRAST (10/28/2007 1:05 AM PDT) + + + + + + | Component | Value | Ref Range | Performed | Pathologist | | | | | At | Signature | + + + + + + | CT HEAD WO | Examination: CT, head | | | | | CONTRAST | without | | | | | | contrast.Comparison: CT | | | | | | of the head from | | | | | | 10/18/2007.History: | | | | | | Postoperative for | | | | | | intracranial aneurysm | | | | | | clipping.Technique: | | | | | | Multiple routine axial | | | | | | CT images through the | | | | | | head withoutcontrast at | | | | | | 4.5 mm | | | | | | collimation.Findings: | | | | | | The ventricular volumes | | | | | | are stable. A right | | | | | | frontalintraventricular | | | | | | drainage catheter is in | | | | | | stable position in | | | | | | theanterior third of the | | | | | | lateral ventricle. | | | | | | The diffuse | | | | | | subarachnoidhemorrhage | | | | | | is becoming less | | | | | | apparent. A small | | | | | | focus of | | | | | | parafalcinehypodensity | | | | | | is seen within the left | | | | | | frontal white matter. | | | | | | The amountof | | | | | | postoperative | | | | | | pneumocephalus has | | | | | | decreased. There is | | | | | | nohemorrhage or acute | | | | | | territorial infarction. | | | | | | The malt roaster | | | | | | swellingoverlying the | | | | | | right frontal temporal | | | | | | craniotomy site is | | | | | | increasedwithout | | | | | | identifiable drainable | | | | | | fluid collection. A | | | | | | small amount ofextra | | | | | | axial fluid along the | | | | | | right frontotemporal | | | | | | craniotomy site andis | | | | | | unchanged.Impression:1. | | | | | | A small new focus of | | | | | | hypodensity is seen | | | | | | within the right | | | | | | frontallobe white matter | | | | | | which may represent | | | | | | edema or ischemia.2. | | | | | | Increased | | | | | | perioperative scalp | | | | | | thickening without a | | | | | | well defineddrainable | | | | | | fluid collection.3. | | | | | | Expected evolution of | | | | | | the intracranial | | | | | | hemorrhage and | | | | | | stableventricular | | | | | | volumes.I have | | | | | | personally viewed this | | | | | | procedure/exam and | | | | | | reviewed this | | | | | | report.STATUS FINAL / | | | | | | Dr. MANDIE MARTINES | | | | | | WONG PENDING FINAL | | | | | | APPROVAL / Dr. SAMS | | | | | | KAMRAI | | | | + + + + + + + + | Specimen | + + | | + + + +---------+ + + | Performing | Address | City/State/Zipcode | Phone Number | | Organization | | | | + +---------+ + + | [facility] DEPARTMENT OF | | | | | RADIOLOGY | | | | + +---------+ + + SPECIFIC GRAVITY, BODY FLUID (10/28/2007 12:01 AM PDT) + +---------+ + + + | Component | Value | Ref Range | Performed | Pathologist | | | | | At | Signature | + +---------+ + + + | SPEC GRAV | Err req | | [facility] | | | BODY FLUID | | | DEPARTMENT | | | | | | OF | | | | | | PATHOLOGY | | + +---------+ + + + | TYPE OF | URN | | [facility] | | | FLUID | URN | | DEPARTMENT | | | | [...] | + + + + + | [facility] | [address] [facility] | [place] [address] | | | PATHOLOGY | [address] | | | + + + + + | [facility] | [address] [facility] | [place] [address] | | | PATHOLOGY | [address] | | | + + + + + CBC ONLY (10/28/2007 12:01 AM PDT) + + + + + + | Component | Value | Ref Range | Performed | Pathologist | | | | | At | Signature | + + + + + + | WHITE CELL | 12.8 (H) | 4.4 - 11.0 K/cu | [facility] | | | COUNT | | mm | DEPARTMENT | | | | | | OF | | | | | | PATHOLOGY | | + + + + + + | RED CELL | 3.05 (L) | 4.00 - 5.20 | [facility] [...] + + + + | HEMATOCRIT | 29.1 (L) | 36.0 - 46.0 % | [facility] | | | | | | DEPARTMENT | | | | | | OF | | | | | | PATHOLOGY | | + + + + + + | MCV | 95.3 | 80.0 - 96.0 fL | [facility] | | | | | | DEPARTMENT | | | | | | OF | | | | | | PATHOLOGY | | + + + + + + | MCHC | 34.0 | 33.4 - 35.5 | [facility] | | | | | g/dL | DEPARTMENT | | | | | | OF | | | | | | PATHOLOGY | | + + + + + + | RDW | 13.4 | 11.5 - 15.0 % | [facility] | | | | | | DEPARTMENT | | | | | | OF | | | | | | PATHOLOGY | | + + + + + + | PLATELET | 273 | 150 - 400 K/cu | [facility] [...] + + + + + | [facility] DEPARTMENT | [address] [facility] | [place] [address] | | | PATHOLOGY | [address] | | | + + + + + | [facility] | [address] [place] [address] | [place] [address] | | | PATHOLOGY | [address] | | | + + + + + MAGNESIUM, PLASMA (10/28/2007 12:01 AM PDT) + +-------+ + + + | Component | Value | Ref Range | Performed | Pathologist | | | | | At | Signature | + +-------+ + + + | MAGNESIUM,P | 1.8 | 1.8 - 2.5 mg/dL | [facility] | | | LASMA | | | DEPARTMENT | | | | | | OF | | | | | | PATHOLOGY | | + +-------+ + + + + + | Specimen | + + | Blood - Blood | + + + + + | Narrative | Performed At | + + + | New Creatinine Reference ranges effective 07. | [facility] | | | DEPARTMENT OF | | | PATHOLOGY | + + + + + + + + | Performing | Address | City/State/Zipcode | Phone Number | | Organization | | | | + + + + + | [facility] DEPARTMENT OF | [address] [facility] | [place] [address] | | | PATHOLOGY | [address] | | | + + + + + | [facility] DEPARTMENT OF | [address] | [place] [address] | | | PATHOLOGY | [address] | | | + + + + + RENAL FUNCTION SET (NA,K,CL,CO2,BUN,CREAT,GLUC,CA,PHOS,ALB ) (10/28/2007 12:01 AM PDT) + +---------+ + + + | Component | Value | Ref Range | Performed | Pathologist | | | | | At | Signature | + +---------+ + + + | GLUCOSE, | 110 (H) | 60 - 99 mg/dL | [facility] | | | PLASMA | | | DEPARTMENT | | | (LAB) | | | OF | | | | | | PATHOLOGY | | + +---------+ + + + | BUN, PLASMA | 5 (L) | 6 - 20 mg/dL | [facility] [...] +---------+ + + + | CALCIUM, | 8.3 (L) | 8.6 - 10.2 | [facility] | | | PLASMA | | mg/dL | DEPARTMENT | | | (LAB) | | | OF | | | | | | PATHOLOGY | | + +---------+ + + + | PHOSPHORUS, | 3.4 | 2.4 - 4.7 mg/dL | [facility] | | | PLASMA | | | DEPARTMENT | | | (LAB) | | | OF | | | | | | PATHOLOGY | | + +---------+ + + + | SODIUM, | 141 | 134 - 143 | [facility] | [...] Blood | + + + + + | Narrative | Performed At | + + + | New Creatinine Reference ranges effective 07. | [facility] | | | DEPARTMENT OF | | | PATHOLOGY | + + + + + + + + | Performing | Address | City/State/Zipcode | Phone Number | | Organization | | | | + + + + + | [facility] DEPARTMENT OF | [address] | [place] [address] | | | PATHOLOGY | [address] | | | + + + + + | [facility] DEPARTMENT OF | [address] | [place] [address] | | | PATHOLOGY | [address] | | | + + + + + SPECIFIC GRAVITY, BODY FLUID (10/27/2007 10:05 PM PDT) + +---------+ + + + | Component | Value | Ref Range | Performed | Pathologist | | | | | At | Signature | + +---------+ + + + | SPEC GRAV | Err req | | [facility] | | | BODY FLUID | | | DEPARTMENT | | | | | | OF | | | | | | PATHOLOGY | | + +---------+ + + + | TYPE OF | URN | | [facility] | | | FLUID | URN | | DEPARTMENT | | | | [...] | + + + + + | [facility] | [facility] | [place] [address] | | | PATHOLOGY | [address] | | | + + + + + | [facility] | [address] | [place] [address] | | | PATHOLOGY | [address] | | | + + + + + RESP CARE THERAPY (10/27/2007 10:00 PM PDT) + + + + + + | Component | Value | Ref Range | Performed | Pathologist | | | | | At | Signature | + + + + + + | RESPIRATORY | Pain Assessment:Patients | | [facility] | | | CARE | pain assessed and was a | | RESPIRATORY | | | | 1 on a scale of | | THERAPY | | | | 0-10.Interventions:Medic | | | | | | ation given via inhaler | | | | | | with Combivent 4 puffs . | | | | | | Total combined | | | | | | puffsgiven: 4 | | | | | | puffs.Assessment:Breath | | | | | | Sounds: diminished in | | | | | | the bases .Cough/Sputum: | | | | | | Patient had a | | | | | | non-productive | | | | | | cough.Outcome after | | | | | | therapy: There was | | | | | | minimal improvement in | | | | | | BS or work ofbreathing | | | | | | after therapy.Treatment | | | | | | Plan:No changes in | | | | | | therapy are | | | | | | indicated.Electronically | | | | | | Signed by: Kiera | | | | | | RT Jordan | | | | + + + + + + + + | Specimen | + + | | + + + + + | Narrative | Performed At | + + + | Ordered by an unspecified provider. | [facility] | | | RESPIRATORY | | | THERAPY | + + + + + + + + | Performing | Address | City/State/Zipcode | Phone Number | | Organization | | | | + + + + + | [facility] RESPIRATORY | [address] | [place], [place] | | | THERAPY | [facility] | [address] | | + + + + + | [facility] RESP[facility]ORY | [address] [address] | [place], [place] | | | THERAPY | [facility] | [address] | | + + + + + X-RAY PORTABLE CHEST 1 VIEW (10/27/2007 5:42 PM PDT) + + + + + + | Component | Value | Ref Range | Performed | Pathologist | | | | | At | Signature | + + + + + + | X-RAY | AP chestCOMPARISON: | | | | | PORTABLE | 10/26/07FINDINGS:Feeding | | | | | CHEST 1 | tube tip projects over | | | | | VIEW | the gastric fundus, left | | | | | | subclaviancentral | | | | | | venous catheter tip is | | | | | | at the confluence of the | | | | | | brachiacephalic veins. | | | | | | Cardiac and | | | | | | mediastinal contours are | | | | | | stable. Lungvolumes | | | | | | remain low with | | | | | | scattered basilar | | | | | | atelectasis and small | | | | | | tomoderate bilateral | | | | | | pleural effusions. No | | | | | | pneumothorax. There | | | | | | isdecreased but | | | | | | persistent mild | | | | | | hydrostatic pulmonary | | | | | | edemaIMPRESSION:1. Low | | | | | | lung volumes with | | | | | | scattered bibasilar | | | | | | atelectasis and smallto | | | | | | moderate bilateral | | | | | | pleural effusions.2. | | | | | | Improving mild | | | | | | hydrostatic pulmonary | | | | | | edema.I have personally | | | | | | viewed this | | | | | | procedure/exam and | | | | | | reviewed this | | | | | | report.STATUS FINAL / | | | | | | Dr. BLOSSOM CABA | | | | | | FINAL / - -STATUS | | | | | | PRELIMINARY - UNSIGNED / | | | | | | Dr. TAMIE PEDRO | | | | + + + + + + + + | Specimen | + + | | + + + +---------+ + + | Performing | Address | City/State/Zipcode | Phone Number | | Organization | | | | + +---------+ + + | [facility] DEPARTMENT OF | | | | | RADIOLOGY | | | | + +---------+ + + RESP CARE THERAPY (10/27/2007 5:10 PM PDT) + + + + + + | Component | Value | Ref Range | Performed | Pathologist | | | | | At | Signature | + + + + + + | RESPIRATORY | Pain Assessment:Patients | | [facility] | | | CARE | pain assessed and was a | | RESPIRATORY | | | | 0 on a scale of | | THERAPY | | | | 0-10.Interventions:Medic | | | | | | ation given via inhaler | | | | | | with Combivent 4 puffs . | | | | | | Total combined | | | | | | puffsgiven: 4 | | | | | | puffs.Assessment:Breath | | | | | | Sounds: rhonchi | | | | | | .Cough/Sputum: The | | | | | | patient required deep | | | | | | suction. Secretions | | | | | | obtained: thinbrown | | | | | | .Outcome after therapy: | | | | | | There was moderate | | | | | | improvement in BS or | | | | | | work ofbreathing after | | | | | | therapy.Treatment | | | | | | Plan:No changes in | | | | | | therapy are | | | | | | indicated.Electronically | | | | | | Signed by: Helen Cuba, | | | | | | [employer] | | | | + + + + + + + + | Specimen | + + | | + + + + + | Narrative | Performed At | + + + | Ordered by an unspecified provider. | [facility] | | | RESPIRATORY | | | THERAPY | + + + + + + + + | Performing | Address | City/State/Zipcode | Phone Number | | Organization | | | | + + + + + | [facility] RES[facility] | [address] | [place], [place] | | | THERAPY | [address] | [address] | | + + + + + | [facility] RES[facility] | [address] | [place], [place] | | | THERAPY | [facility] | [address] | | + + + + + RESP CARE THERAPY (10/27/2007 5:10 PM PDT) + + + + + + | Component | Value | Ref Range | Performed | Pathologist | | | | | At | Signature | + + + + + + | RESPIRATORY | The patient was | | [facility] | | | CARE | suctioned in order to | | RESPIRATORY | | | | obtain the sputum | | THERAPY | | | | speciment. | | | | | | Sputumspecimen obtained | | | | | | and sent to | | | | | | lab.Electronically | | | | | | Signed by: Helen Cuba, | | | | | | [employer]IDENT [employer] | | | | + + + + + + + + | Specimen | + + | | + + + + + | Narrative | Performed At | + + + | Ordered by an unspecified provider. | [facility] | | | RESPIRATORY | | | THERAPY | + + + + + + + + | Performing | Address | City/State/Zipcode | Phone Number | | Organization | | | | + + + + + | [facility] RES[facility] | [address] | [place], [place] | | | THERAPY | [address] | [address] | | + + + + + | [facility] RES[facility] | [address] | [place], [place] | | | THERAPY | [address] | [address] | | + + + + + SPECIFIC GRAVITY, BODY FLUID (10/27/2007 4:05 PM PDT) + +---------+ + + + | Component | Value | Ref Range | Performed | Pathologist | | | | | At | Signature | + +---------+ + + + | SPEC GRAV | Err req | | [facility] | | | BODY FLUID | | | DEPARTMENT | | | | | | OF | | | | | | PATHOLOGY | | + +---------+ + + + | TYPE OF | URN | | [facility] | | | FLUID | URN | | DEPARTMENT | | | | [...] | + + + + + | [facility] | [address] [facility] | [place] [address] | | | PATHOLOGY | [address] | | | + + + + + | [facility] | [id number] [facility] [facility] | [place] [address] | | | PATHOLOGY | [address] | | | + + + + + CULTURE, SPUTUM (10/27/2007 3:57 PM PDT) + + + + + + | Component | Value | Ref Range | Performed | Pathologist | | | | | At | Signature | + + + + + + | SOURCE BODY | Sputum Sputum | | | | | SITE | | | | | + + + + + + | CULTURE | Respiratory | | | | | RESULT | Culture | | | | | | Source...............: | | | | | | Sputum Sputum | | | | | | Culture: Gram | | | | | | stain shows the presence | | | | | | of significant | | | | | | oropharyngeal | | | | | | contamination. Final | | | | | | ReportComment: Test | | | | | | performed at [facility] | | | | | | [facility] | | | | | | Laboratory. | | | | + + + + + + + + | Specimen | + + | Sputum - Sputum | + + + + + + + | Performing | Address | City/State/Zipcode | Phone Number | | Organization | | | | + + + + + | [facility] | [address] | [place] [address] | | | LAB-MICRO | | | | + + + + + CULTURE, URINE BACTI (10/27/2007 3:57 PM PDT) + + + + + + | Component | Value | Ref Range | Performed | Pathologist | | | | | At | Signature | + + + + + + | SOURCE BODY | [facility] | | | | | SITE | | | | | + + + + + + | CULTURE | Urine Culture | | | | | RESULT | | | | | | | Source...............: | | | | | | [facility] Urine | | | | | | Culture: Final | | | | | | Report: No growth (< | | | | | | 1,000 col/ml) after 24 | | | | | | hours Final | | | | | | Report Resulted: | | | | | | 10/29/07 | | | | | | [facility]) | | | | | | [facility] | | | | | | [facility] | | | | | | [address] [facility] | | | | | | [place], | | | | | | [place] [id number]: | | | | | | Test performed at [facility] | | | | | | [facility] | | | | | | Laboratory. | | | | + + + + + + + + | Specimen | + + | Urine - Benavides Cath | + + + + + + + | Performing | Address | City/State/Zipcode | Phone Number | | Organization | | | | + + + + + | [facility] | [address] | [place] [address] | | | LAB-MICRO | | | | + + + + + CULTURE, BLOOD BACTI & YEAST (10/27/2007 3:57 PM PDT) + + + + + + | Component | Value | Ref Range | Performed | Pathologist | | | | | At | Signature | + + + + + + | SOURCE BODY | Left Subclavian Central | | | | | SITE | venous catheter | | | | + + + + + + | CULTURE | Blood Culture | | | | | RESULT | | | | | | | Source.................. | | | | | | : Left Subclavian | | | | | | Central venous catheter | | | | | | | | | | | | Result.................. | | | | | | . Final: No growth at 5 | | | | | | days.Comment: Test | | | | | | performed at [facility] | | | | | | [facility] | | | | | | Laboratory. | | | | + + + + + + + + | Specimen | + + | Blood | + + + + + + + | Performing | Address | City/State/Zipcode | Phone Number | | Organization | | | | + + + + + | [facility] | [address] | [place] [address] | | | LAB-MICRO | | | | + + + + + POTASSIUM, PLASMA (10/27/2007 3:32 PM PDT) + + + + + + | Component | Value | Ref Range | Performed | Pathologist | | | | | At | Signature | + + + + + + | POTASSIUM, | Combined. | 3.4 - 5.0 | [facility] | | | PLASMA | | mmol/L | DEPARTMENT | | | (LAB) | | | OF | | | | | | PATHOLOGY | | + + + + + + + + | Specimen | + + | Blood - Blood | + + + + + | Narrative | Performed At | + + + | New Creatinine Reference ranges effective 07. | [facility] | | Combined with request same date/time. | DEPARTMENT OF | | | PATHOLOGY | + + + + + + + + | Performing | Address | City/State/Zipcode | Phone Number | | Organization | | | | + + + + + | [facility] DEPARTMENT OF | [address] [facility] | [place] [address] | | | PATHOLOGY | [address] | | | + + + + + | [facility] DEPARTMENT OF | [address] [facility] | [place] [address] | | | PATHOLOGY | [address] | | | + + + + + POTASSIUM, PLASMA (10/27/2007 3:31 PM PDT) + +-------+ + + + | Component | Value | Ref Range | Performed | Pathologist | | | | | At | Signature | + +-------+ + + + | POTASSIUM, | 3.4 | 3.4 - 5.0 | [facility] | | | PLASMA | | mmol/L | DEPARTMENT | | | (LAB) | | | OF | | | | | | PATHOLOGY | | + +-------+ + + + + + | Specimen | + + | | + + + + + | Narrative | Performed At | + + + | New Creatinine Reference ranges effective 07. | [facility] | | | DEPARTMENT OF | | | PATHOLOGY | + + + + + + + + | Performing | Address | City/State/Zipcode | Phone Number | | Organization | | | | + + + + + | [facility] DEPARTMENT OF | [address] | [place] [address] | | | PATHOLOGY | [address] | | | + + + + + | [facility] DEPARTMENT OF | [address] | [place] [address] | | | PATHOLOGY | [address] | | | + + + + + SODIUM, PLASMA (10/27/2007 3:31 PM PDT) + +-------+ + + + | Component | Value | Ref Range | Performed | Pathologist | | | | | At | Signature | + +-------+ + + + | SODIUM, | 143 | 134 - 143 | [facility] | | | PLASMA | | mmol/L | DEPARTMENT | | | (LAB) | | | OF | | | | | | PATHOLOGY | | + +-------+ + + + + + | Specimen | + + | Blood - Blood | + + + + + | Narrative | Performed At | + + + | New Creatinine Reference ranges effective 07. | [facility] | | | DEPARTMENT OF | | | PATHOLOGY | + + + + + + + + | Performing | Address | City/State/Zipcode | Phone Number | | Organization | | | | + + + + + | [facility] DEPARTMENT OF | [address] | [place] [address] | | | PATHOLOGY | [address] | | | + + + + + | [facility] DEPARTMENT | [address] [facility] | [place] [address] | | | PATHOLOGY | [address] | | | + + + + + URINE SCREEN FOR CULTURE (10/27/2007 3:30 PM PDT) + + + + + + | Component | Value | Ref Range | Performed | Pathologist | | | | | At | Signature | + + + + + + | CULT, URINE | Negative for Nitrite and | | [facility] | | | SCREEN | Leukocyte | | DEPARTMENT | | | | Esterase.Culture not | | OF | | | | indicated. | | PATHOLOGY | | + + + + + + + + | Specimen | + + | | + + + + + + + | Performing | Address | City/State/Zipcode | Phone Number | | Organization | | | | + + + + + | [facility] DEPARTMENT OF | [address] [facility] | [place] [address] | | | PATHOLOGY | [address] | | | + + + + + | [facility] DEPARTMENT OF | [facility] | [place] [address] | | | PATHOLOGY | [address] | | | + + + + + URINE, MICROSCOPIC EXAM (10/27/2007 3:30 PM PDT) + +-------+ + + + [...] + + + | RED CELLS | 3-4 | 0 - 3 /hpf | [facility] | | | | | | DEPARTMENT | | | | | | OF | | | | | | PATHOLOGY | | + +-------+ + + + | WHITE CELLS | 0-1 | 0 - 5 /hpf | [facility] | | | | | | DEPARTMENT | | | | | | OF | | | | | | PATHOLOGY | | + +-------+ + + + | BACTERIA | None | /hpf | [facility] | [...] Specimen | + + | Urine - Benavides Cath | + + + + + | Narrative | Performed At | + + + | Specimen volume <12ml; microscopic not standardized. | [facility] | | | DEPARTMENT OF | | | PATHOLOGY | + + + + + + + + | Performing | Address | City/State/Zipcode | Phone Number | | Organization | | | | + + + + + | [facility] OF | [address] | [place] [address] | | | PATHOLOGY | [address] | | | + + + + + | [facility] OF | [address] | [place] [address] | | | PATHOLOGY | [address] | | | + + + + + URINE SCREEN FOR CULTURE (10/27/2007 3:30 PM PDT) + + + + + [...] Specimen | + + | Urine - Benavides Cath | + + + + + | Narrative | Performed At | + + + | Combined with request same date/time. | [facility] | | | DEPARTMENT OF | | | PATHOLOGY | + + + + + + + + | Performing | Address | City/State/Zipcode | Phone Number | | Organization | | | | + + + + + | [facility] | [address] | [place] [address] | | | PATHOLOGY | [address] | | | + + + + + | [facility] OF | [address] | [place] [address] | | | PATHOLOGY | [address] | | | + + + + + SPECIFIC GRAVITY URINE, POC RESULT (10/27/2007 3:00 PM PDT) + +-------+ + + + | Component | Value | Ref Range | Performed | Pathologist | | | | | At | Signature | + +-------+ + + + | SPECIFIC | 1.012 | 1.002 - 1.03 | | | | GRAVITY, | | | | | | RANDOM UR | | | | | | POC | | | | | + +-------+ + + + RESP CARE THERAPY (10/27/2007 1:00 PM PDT) + + + + + + | Component | Value | Ref Range | Performed | Pathologist | | | | | At | Signature | + + + + + + | RESPIRATORY | Pain Assessment:Patients | | [facility] | | | CARE | pain assessed and was a | | RESPIRATORY | | | | 0 on a scale of | | THERAPY | | | | 0-10.Interventions:Medic | | | | | | ation given via inhaler | | | | | | with Combivent 4 puffs . | | | | | | Total combined | | | | | | puffsgiven: 4 | | | | | | puffs.Assessment:Breath | | | | | | Sounds: diminished | | | | | | .Cough/Sputum: Patient | | | | | | had a productive cough. | | | | | | Secretions | | | | | | obtained:secretions | | | | | | swallowed.Outcome after | | | | | | therapy: There was | | | | | | moderate improvement in | | | | | | BS or work ofbreathing | | | | | | after therapy.Treatment | | | | | | Plan:No changes in | | | | | | therapy are | | | | | | indicated.Electronically | | | | | | Signed by: Helen Cuba, | | | | | | [employer]IDENT [employer] | | | | + + + + + + + + | Specimen | + + | | + + + + + | Narrative | Performed At | + + + | Ordered by an unspecified provider. | [facility] | | | RESPIRATORY | | | THERAPY | + + + + + + + + | Performing | Address | City/State/Zipcode | Phone Number | | Organization | | | | + + + + + | [facility] RESPIRATORY | [address] [facility] | [place], [place] | | | THERAPY | [address] | [address] | | + + + + + | [facility] RESPIRATORY | [address] [facility] | [place], [place] | | | THERAPY | [address] | [address] | | + + + + + SPECIFIC GRAVITY, BODY FLUID (10/27/2007 10:05 AM PDT) + +---------+ + + + | Component | Value | Ref Range | Performed | Pathologist | | | | | At | Signature | + +---------+ + + + | SPEC GRAV | Err req | | [facility] | | | BODY FLUID | | | DEPARTMENT | | | | | | OF | | | | | | PATHOLOGY | | + +---------+ + + + | TYPE OF | URN | | [facility] | | | FLUID | URN | | DEPARTMENT | | | | | | OF | | | | | | PATHOLOGY | | + +---------+ + + + + + | Specimen | + + | Urine - Urine | + + + + + | Narrative | Performed At | + + + | Order dipstick on urine specimens for specific gravity | [facility] | | | DEPARTMENT OF | | | PATHOLOGY | + + + + + + + + | Performing | Address | City/State/Zipcode | Phone Number | | Organization | | | | + + + + + | [facility] DEPARTMENT | [address] [place] [address] | [place] [address] | | | PATHOLOGY | [address] | | | + + + + + | [facility] DEPARTMENT OF | [facility] | [place] [address] | | | PATHOLOGY | [address] | | | + + + + + RESP CARE THERAPY (10/27/2007 9:00 AM PDT) + + + + + + | Component | Value | Ref Range | Performed | Pathologist | | | | | At | Signature | + + + + + + | RESPIRATORY | Pain Assessment:Patients | | [facility] | | | CARE | pain assessed and was a | | RESPIRATORY | | | | 0 on a scale of | | THERAPY | | | | 0-10.Interventions:Medic | | | | | | ation given via inhaler | | | | | | with Combivent 4 puffs . | | | | | | Total combined | | | | | | puffsgiven: 4 | | | | | | puffs.Assessment:Breath | | | | | | Sounds: diminished | | | | | | .Cough/Sputum:Outcome | | | | | | after therapy: There was | | | | | | moderate improvement in | | | | | | BS or work ofbreathing | | | | | | after therapy.Treatment | | | | | | Plan:No changes in | | | | | | therapy are | | | | | | indicated.Electronically | | | | | | Signed by: Helen Cuba, | | | | | | [employer]IDENT [employer] | | | | + + + + + + + + | Specimen | + + | | + + + + + | Narrative | Performed At | + + + | Ordered by an unspecified provider. | [facility] | | | RESPIRATORY | | | THERAPY | + + + + + + + + | Performing | Address | City/State/Zipcode | Phone Number | | Organization | | | | + + + + + | [facility] RESPIRATORY | [address] | [place], [place] | | | THERAPY | [address] | [address] | | + + + + + | [facility] RESPIRATORY | [address] | [place], [place] | | | THERAPY | [address] | [address] | | + + + + + SPECIFIC GRAVITY URINE, POC RESULT (10/27/2007 9:00 AM PDT) + +-------+ + + + | Component | Value | Ref Range | Performed | Pathologist | | | | | At | Signature | + +-------+ + + + | SPECIFIC | 1.006 | 1.002 - 1.03 | | | | GRAVITY, | | | | | | RANDOM UR | | | | | | POC | | | | | + +-------+ + + + POTASSIUM, PLASMA (10/27/2007 8:30 AM PDT) + +-------+ + + + | Component | Value | Ref Range | Performed | Pathologist | | | | | At | Signature | + +-------+ + + + | POTASSIUM, | 3.4 | 3.4 - 5.0 | [facility] | | | PLASMA | | mmol/L | DEPARTMENT | | | (LAB) | | | OF | | | | | | PATHOLOGY | | + +-------+ + + + + + | Specimen | + + | | + + + + + | Narrative | Performed At | + + + | New Creatinine Reference ranges effective 07. | [facility] | | | DEPARTMENT OF | | | PATHOLOGY | + + + + + + + + | Performing | Address | City/State/Zipcode | Phone Number | | Organization | | | | + + + + + | [facility] DEPARTMENT OF | [facility] | [place] [address] | | | PATHOLOGY | [address] | | | + + + + + | [facility] DEPARTMENT OF | [facility] | [place] [address] | | | PATHOLOGY | [address] | | | + + + + + POTASSIUM, PLASMA (10/27/2007 8:30 AM PDT) + + + + + + | Component | Value | Ref Range | Performed | Pathologist | | | | | At | Signature | + + + + + + | POTASSIUM, | Combined. | 3.4 - 5.0 | [facility] | | | PLASMA | | mmol/L | DEPARTMENT | | | (LAB) | | | OF | | | | | | PATHOLOGY | | + + + + + + + + | Specimen | + + | Blood - Blood | + + + + + | Narrative | Performed At | + + + | New Creatinine Reference ranges effective 07. | [facility] | | Combined with request same date/time. | DEPARTMENT OF | | | PATHOLOGY | + + + + + + + + | Performing | Address | City/State/Zipcode | Phone Number | | Organization | | | | + + + + + | [facility] DEPARTMENT OF | [address] [facility] | [place] [address] | | | PATHOLOGY | [address] | | | + + + + + | [facility] DE[facility]MENT OF | [address] [facility] | [place] [address] | | | PATHOLOGY | [address] | | | + + + + + SODIUM, PLASMA (10/27/2007 8:30 AM PDT) + +---------+ + + + [...] Blood | + + + + + | Narrative | Performed At | + + + | New Creatinine Reference ranges effective 07. | [facility] | | | DEPARTMENT OF | | | PATHOLOGY | + + + + + + + + | Performing | Address | City/State/Zipcode | Phone Number | | Organization | | | | + + + + + | [facility] DEPARTMENT OF | [address] | [place] [address] | | | PATHOLOGY | [address] | | | + + + + + | [facility] DEPARTMENT OF | [address] | [place] [address] | | | PATHOLOGY | [address] | | | + + + + + GRAM SMEAR ONLY, STAT (10/27/2007 8:22 AM PDT) + + + + + + | Component | Value | Ref Range | Performed | Pathologist | | | | | At | Signature | + + + + + + | GRAM SMEAR | Moderate White blood | | [facility] | | | ONLY-[facility] | cells presentNo | | DEPARTMENT | | | | organisms seen. | | OF | | | | | | PATHOLOGY | | + + + + + + | SMEAR | Specimen | | [facility] | | | PREPARATION | bloody/cloudy;cytospin | | DEPARTMENT | | | | diluted | | OF | | | | [...] DEPARTMENT OF | [address] | [place] [address] | | | PATHOLOGY | [address] | | | + + + + + | [facility] DEPARTMENT OF | [address] | [place] [address] | | | PATHOLOGY | [address] | | | + + + + + CSF INFO PANEL (10/27/2007 8:22 AM PDT) + + + + + + | Component | Value | Ref Range | Performed | Pathologist | | | | | At | Signature | + + + + + + | CSF COLOR | Mod Xantho | Colorless | [facility] | | | | | | DEPARTMENT | | | | | | OF | | | | | | PATHOLOGY | | + + + + + + | CSF | Bloody | Clear | [facility] | | | APPEARANCE | | | DEPARTMENT | | | | | | OF | | | | | | PATHOLOGY | | + + + + + + | CSF TUBE | Other | | [facility] | | | NUMBER | | | DEPARTMENT | | | | | | OF | | | | | | PATHOLOGY | | + + + + + + + + | Specimen | + + | | + + + + + | Narrative | Performed At | + + + | WBC Phoned Readback. | [facility] | | | DEPARTMENT OF | | | PATHOLOGY | + + + + + + + + | Performing | Address | City/State/Zipcode | Phone Number | | Organization | | | | + + + + + | [facility] | [address] [facility] | [place] [address] | | | PATHOLOGY | [address] | | | + + + + + | [facility] | [address] [facility] | [place] [address] | | | PATHOLOGY | [address] | | | + + + + + CULTURE, CSF BACTI (10/27/2007 8:22 AM PDT) + + + + + [...] at | | | | | | [facility]. Culture: | | | | | | Final Report: No | | | | | | growth after 3 days. | | | | | | Final ReportComment: | | | | | | Test performed at [facility] | | | | | | [facility] | | | | | | Laboratory. | | | | + + + + + + + + | Specimen | + + | Cerebrospinal fluid | + + + + + + + | Performing | Address | City/State/Zipcode | Phone Number | | Organization | | | | + + + + + | [facility] | [address] | [place] [address] | | | LAB-MICRO | | | | + + + + + GLUCOSE, CSF (10/27/2007 8:22 AM PDT) + +--------+ + + + | [...] Performed At | + + + | WBC Phoned Readback. | [facility] | | | DEPARTMENT OF | | | PATHOLOGY | + + + + + + + + | Performing | Address | City/State/Zipcode | Phone Number | | Organization | | | | + + + + + | [facility] DEPARTMENT OF | [address] | [place] [address] | | | PATHOLOGY | [address] | | | + + + + + | [facility] DEPARTMENT | [address] | [place] [address] | | | PATHOLOGY | [address] | | | + + + + + PROTEIN, CSF (10/27/2007 8:22 AM PDT) + +---------+ + + + | Component | Value | Ref Range | Performed | Pathologist | | | | | At | Signature | + +---------+ + + + | TOTAL | 127 (H) | 15 - 45 mg/dL | [facility] | | | PROTEIN CSF | | | DEPARTMENT | | | | | | OF | | | | | | PATHOLOGY | | + +---------+ + + + + + | Specimen | + + | Cerebrospinal fluid | + + + + + | Narrative | Performed At | + + + | WBC Phoned Readback. | [facility] | | | DEPARTMENT OF | | | PATHOLOGY | + + + + + + + + | Performing | Address | City/State/Zipcode | Phone Number | | Organization | | | | + + + + + | [facility] DEPARTMENT OF | [address] | [place] [address] | | | PATHOLOGY | [address] | | | + + + + + | [facility] DEPARTMENT OF | [address] | [place] [address] | | | PATHOLOGY | [address] | | | + + + + + CELL COUNT DIFF, CSF (10/27/2007 8:22 AM PDT) + +--------+ + + + | Component | Value | Ref Range | Performed | Pathologist | | | | | At | Signature | + +--------+ + + + | CSF WBC | 23 (*) | <6 /cu mm | [facility] | | | | | | DEPARTMENT | | | | | | OF | | | | | | PATHOLOGY | | + +--------+ + + + | CSF RBC | [address] | /cu mm | [facility] | | [...] +--------+ + + + | NEUTROPHIL( | 10 (H) | <7 % | [facility] | | | CSF) | | | DEPARTMENT | | | | | | OF | | | | | | PATHOLOGY | | + +--------+ + + + | LYMPHOCYTES | 44 | 40 - 80 % | [facility] | | | (CSF) | | | DEPARTMENT | | | | | | OF | | | | | | PATHOLOGY | | + +--------+ + + + | MONOCYTES(C | 40 | 15 - 45 % | [facility] | | | SF) | | | DEPARTMENT | | | | | | OF | | | | | | PATHOLOGY | | + +--------+ + + + | MACROPHAGES | 3 | % | [facility] | | | (CSF) | | | DEPARTMENT | | | | | | OF | | | | | | PATHOLOGY | | + +--------+ + + + | REACTIVE | 3 | % | [facility] | | | LYMPHS(CSF) | | | DEPARTMENT | | | | | | OF | | | | | | PATHOLOGY | | + +--------+ + + + + + | Specimen | + + | Cerebrospinal fluid | + + + + + | Narrative | Performed At | + + + | WBC Phoned Readback. | [facility] | | | DEPARTMENT OF | | | PATHOLOGY | + + + + + + + + | Performing | Address | City/State/Zipcode | Phone Number | | Organization | | | | + + + + + | [facility] | [address] [facility] | [place] [address] | | | PATHOLOGY | [address] | | | + + + + + | [facility] | [facility] | [place] [address] | | | PATHOLOGY | [address] | | | + + + + + VASC LAB PORTABLE TRANSCRANIAL DOPPLER COMPLETE (10/27/2007 1:37 AM PDT) + + + + + + | Component | Value | Ref Range | Performed | Pathologist | | | | | At | Signature | + + + + + + | [facility]ASC LAB | Med Rec No:[id number] | | | | | PORTABLE | Name: | | | | | TRANSCRANIA | GLORIA ADHIKARI | | | | | L DOPPLER | Birthday: 1950 | | | | | COMPLETE | Sex: F | | | | | | Alias:Patient Location: | | | | | | 7NSIStatus: Inpatient | | | | | | ActiveOrdering | | | | | | Physician: | | | | | | ACLANDOGAN,VTCDCPVL PORT | | | | | | TRANSCRANIAL DOP COMP | | | | | | completed on 10/27/2007 | | | | | | 8:14 AMAccession | | | | | | #[id number]:TRANSCRAN | | | | | | IAL DOPPLER EVALUATION: | | | | | | 10/27/2007 Dictated | | | | | | 10/28/2007FINDINGS: | | | | | | A transcranial Doppler | | | | | | evaluation is performed | | | | | | bilaterallyof the extra | | | | | | and intracranial | | | | | | internal carotid | | | | | | arteries, theanterior, | | | | | | middle, and posterior | | | | | | cerebral arteries, the | | | | | | vertebralarteries, and | | | | | | the basilar artery. In | | | | | | the right hemisphere | | | | | | there is anelevated mean | | | | | | velocity in the middle | | | | | | cerebral artery at | | | | | | 146-180cm/sec. All | | | | | | remaining mean | | | | | | velocities in the right | | | | | | hemisphere and | | | | | | allvelocities in the | | | | | | left hemisphere are less | | | | | | than 120 cm/sec. The | | | | | | rightmiddle cerebral | | | | | | artery mean velocity is | | | | | | 5.29, the left | | | | | | 2.47.IMPRESSION:The | | | | | | right hemispheric | | | | | | examination is abnormal | | | | | | with evidence of | | | | | | middlecerebral artery | | | | | | vasospasm. The left | | | | | | hemispheric examination | | | | | | isnormal.END IMPRESSIONI | | | | | | have personally viewed | | | | | | this procedure/exam and | | | | | | reviewed this | | | | | | report.STATUS FINAL / | | | | | | Dr. JASPREET ERIC | | | | | | PATUS PRELIMINARY | | | | | | - UNSIGNED / Crane | | | | | | Chana | | | | + + + + + + + + | Specimen | + + | | + + + +---------+ + + | Performing | Address | City/State/Zipcode | Phone Number | | Organization | | | | + +---------+ + + | [facility] DEPARTMENT OF | | | | | RADIOLOGY | | | | + +---------+ + + RESP CARE THERAPY (10/27/2007 1:21 AM PDT) + + + + + + | Component | Value | Ref Range | Performed | Pathologist | | | | | At | Signature | + + + + + + | RESPIRATORY | Nasal cannula at 3 | | [facility] | | | CARE | LPM.Electronically | | RESPIRATORY | | | | Signed by: Kiera | | THERAPY | | | | [address] | | | | + + + + + + + + | Specimen | + + | | + + + + + | Narrative | Performed At | + + + | Ordered by an unspecified provider. | [facility] | | | RESPIRATORY | | | THERAPY | + + + + + + + + | Performing | Address | City/State/Zipcode | Phone Number | | Organization | | | | + + + + + | [facility] RESPIRATORY | [address] [facility] | [place], [place] | | | THERAPY | [address] | [address] | | + + + + + | [facility] RESPIRATORY | [address] [facility] | [place], [place] | | | THERAPY | [facility] | [address] | | + + + + + CBC ONLY (10/27/2007 1:20 AM PDT) + + + + + + | Component | Value | Ref Range | Performed | Pathologist | | | | | At | Signature | + + + + + + | WHITE CELL | 11.2 (H) | 4.4 - 11.0 K/cu | [facility] | | | COUNT | | mm | DEPARTMENT | | | | | | OF | | | | | | PATHOLOGY | | + + + + + + | RED CELL | 2.95 (L) | 4.00 - 5.20 | [facility] [...] + + + + | HEMATOCRIT | 27.7 (L) | 36.0 - 46.0 % | [facility] | | | | | | DEPARTMENT | | | | | | OF | | | | | | PATHOLOGY | | + + + + + + | MCV | 93.9 | 80.0 - 96.0 fL | [facility] | | | | | | DEPARTMENT | | | | | | OF | | | | | | PATHOLOGY | | + + + + + + | MCHC | 34.1 | 33.4 - 35.5 | [facility] | | | | | g/dL | DEPARTMENT | | | | | | OF | | | | | | PATHOLOGY | | + + + + + + | RDW | 13.8 | 11.5 - 15.0 % | [facility] | | | | | | DEPARTMENT | | | | | | OF | | | | | | PATHOLOGY | | + + + + + + | PLATELET | 220 | 150 - 400 K/cu | [facility] [...] + + + + + | [facility] DEPARTMENT OF | [address] [facility] | [place] [address] | | | PATHOLOGY | [address] | | | + + + + + | [facility] DEPARTMENT OF | [address] | [place] [address] | | | PATHOLOGY | [address] | | | + + + + + MAGNESIUM, PLASMA (10/27/2007 1:20 AM PDT) + +-------+ + + + [...] Blood | + + + + + | Narrative | Performed At | + + + | New Creatinine Reference ranges effective 07. | [facility] | | | DEPARTMENT OF | | | PATHOLOGY | + + + + + + + + | Performing | Address | City/State/Zipcode | Phone Number | | Organization | | | | + + + + + | [facility] DEPARTMENT OF | [address] | [place] [address] | | | PATHOLOGY | [address] | | | + + + + + | [facility] DEPARTMENT OF | [address] | [place] [address] | | | PATHOLOGY | [address] | | | + + + + + RENAL FUNCTION SET (NA,K,CL,CO2,BUN,CREAT,GLUC,CA,PHOS,ALB ) (10/27/2007 1:20 AM PDT) + +---------+ + + + | Component | Value | Ref Range | Performed | Pathologist | | | | | At | Signature | + +---------+ + + + | GLUCOSE, | 121 (H) | 60 - 99 mg/dL | [...] +---------+ + + + | ALBUMIN, | 2.6 (L) | 3.5 - 4.7 g/dL | [facility] | | | PLASMA | | | DEPARTMENT | | | (LAB) | | | OF | | | | | | PATHOLOGY | | + +---------+ + + + | CALCIUM, | 8.3 (L) | 8.6 - 10.2 | [facility] | | | PLASMA | | mg/dL | DEPARTMENT | | | (LAB) | | | OF | | | | | | PATHOLOGY | | + +---------+ + + + | PHOSPHORUS, | 3.6 | 2.4 - 4.7 mg/dL | [facility] | | | PLASMA | | | DEPARTMENT | | | (LAB) | | | OF | | | | | | PATHOLOGY | | + +---------+ + + + | SODIUM, | 146 (H) | 134 - 143 | [facility] | | | PLASMA | | mmol/L | DEPARTMENT | | | (LAB) | | | OF | | | | | | PATHOLOGY | | + +---------+ + + + | POTASSIUM, | 3.7 | 3.4 - 5.0 | [facility] | | | PLASMA | | mmol/L | DEPARTMENT | | | (LAB) | | | OF | | | | | | PATHOLOGY | | + +---------+ + + + | CHLORIDE, | 116 (H) | 97 - 108 mmol/L | [...] Blood | + + + + + | Narrative | Performed At | + + + | New Creatinine Reference ranges effective 07. | [facility] | | | DEPARTMENT OF | | | PATHOLOGY | + + + + + + + + | Performing | Address | City/State/Zipcode | Phone Number | | Organization | | | | + + + + + | [facility] | [address] [facility] [facility] | [place] [address] | | | PATHOLOGY | [address] | | | + + + + + | [facility] | [address] [facility] [address] [facility] | [place] [address] | | | PATHOLOGY | [address] | | | + + + + + SAL RAHMAN (10/27/2007 12:01 AM PDT) + + + + + [...] + + + + | APPEARANCE | Hazy | | [facility] | | | | [...] + + + + | KETONES | Trace | mg/dL | [facility] | | | | | | DEPARTMENT | | | | | | OF | | | | | | PATHOLOGY | | + + + + + + | SPECIFIC | 1.010 | 1.005 - 1.030 | [facility] | | | GRAVITY | | | DEPARTMENT | | | | | | OF | | | | | | PATHOLOGY | | + + + + + + | BLOOD | Trace | | [facility] | | | | | | DEPARTMENT | | | | | | OF | | | | | | PATHOLOGY | | + + + + + + | PH(UR) | 6.5 | 5.0 - 8.0 | [facility] | | | | | | DEPARTMENT | | | | | | OF | | | | | | PATHOLOGY | | + + + + + + | PROTEIN(LAB | 30 | mg/dL | [facility] | | | [...] + + + + | NITRITES | Negative | Negative | [facility] | [...] | + + + + + | [facility] | [address] [facility] [facility] | [place] [address] | | | PATHOLOGY | [address] | | | + + + + + | [facility] | [address] [facility] [facility] | [place] [address] | | | PATHOLOGY | [address] | | | + + + + + SPECIFIC GRAVITY URINE, POC RESULT (10/27/2007) + +-------+ + + + | Component | Value | Ref Range | Performed | Pathologist | | | | | At | Signature | + +-------+ + + + | SPECIFIC | 1.012 | 1.002 - 1.03 | | | | GRAVITY, | | | | | | RANDOM UR | | | | | | POC | | | | | + +-------+ + + + SPECIFIC GRAVITY, BODY FLUID (10/26/2007 10:05 PM PDT) + + + + + + | Component | Value | Ref Range | Performed | Pathologist | | | | | At | Signature | + + + + + + | SPEC GRAV | Not Recd | | [facility] | | | BODY FLUID | | | DEPARTMENT | | | | | | OF | | | | | | PATHOLOGY | | + + + + + + | TYPE OF | URN | | [facility] | | | FLUID | URN | | DEPARTMENT | | | | [...] + + + + + | [facility] DEPARTMENT | [address] [facility] [address] [facility] [facility] [facility] | [place] [address] | | | PATHOLOGY | [address] | | | + + + + + | [facility] | [address] [facility] [facility] | [place] [address] | | | PATHOLOGY | [address] | | | + + + + + RESP CARE THERAPY (10/26/2007 8:30 PM PDT) + + + + + + | Component | Value | Ref Range | Performed | Pathologist | | | | | At | Signature | + + + + + + | RESPIRATORY | Pain Assessment:Patients | | [facility] | | | CARE | pain assessed and was a | | RESPIRATORY | | | | 1 on a scale of | | THERAPY | | | | 0-10.Interventions:Medic | | | | | | ation given via inhaler | | | | | | with Combivent 4 puffs . | | | | | | Total combined | | | | | | puffsgiven: 4 | | | | | | puffs.Assessment:Breath | | | | | | Sounds: diminished in | | | | | | the bases .Cough/Sputum: | | | | | | Patient had no cough at | | | | | | this time.Outcome after | | | | | | therapy: There was no | | | | | | improvement in BS or | | | | | | work of breathingafter | | | | | | therapy.Treatment | | | | | | Plan:No changes in | | | | | | therapy are | | | | | | indicated.Electronically | | | | | | Signed by: Kiera | | | | | | RT Jordan | | | | + + + + + + + + | Specimen | + + | | + + + + + | Narrative | Performed At | + + + | Ordered by an unspecified provider. | [facility] | | | RESPIRATORY | | | THERAPY | + + + + + + + + | Performing | Address | City/State/Zipcode | Phone Number | | Organization | | | | + + + + + | [facility] RES[facility] | [address] | [place], [place] | | | THERAPY | [address] | [address] | | + + + + + | [facility] | [address] [facility] [facility] | [place], [place] | | | THERAPY | [facility] | [address] | | + + + + + SODIUM, PLASMA (10/26/2007 5:00 PM PDT) + +-------+ + + + | Component | Value | Ref Range | Performed | Pathologist | | | | | At | Signature | + +-------+ + + + | SODIUM, | 143 | 134 - 143 | [facility] | | | PLASMA | | mmol/L | DEPARTMENT | | | (LAB) | | | OF | | | | | | PATHOLOGY | | + +-------+ + + + + + | Specimen | + + | | + + + + + | Narrative | Performed At | + + + | New Reference ranges effective 07 for: Sodium, | [facility] | | Potassium, Chloride,Total CO2, Calcium | DEPARTMENT OF | | | PATHOLOGY | + + + + + + + + | Performing | Address | City/State/Zipcode | Phone Number | | Organization | | | | + + + + + | [facility] DEPARTMENT OF | [address] | [place] [address] | | | PATHOLOGY | [address] | | | + + + + + | [facility] | [address] | [place] [address] | | | PATHOLOGY | [address] | | | + + + + + UA DIPSTICK ONLY, POC RESULT (10/26/2007 5:00 PM PDT) + +-------+ + + + | Component | Value | Ref Range | Performed | Pathologist | | | | | At | Signature | + +-------+ + + + | SPECIFIC | 1.021 | 1.005 - 1.03 | | | | GRAVITY (UA | | | | | | DIP), POC | | | | | + +-------+ + + + POTASSIUM, PLASMA (10/26/2007 5:00 PM PDT) + +-------+ + + + | Component | Value | Ref Range | Performed | Pathologist | | | | | At | Signature | + +-------+ + + + | POTASSIUM, | 3.4 | 3.4 - 5.0 | [facility] | | | PLASMA | | mmol/L | DEPARTMENT | | | (LAB) | | | OF | | | | | | PATHOLOGY | | + +-------+ + + + + + | Specimen | + + | Blood - Blood | + + + + + | Narrative | Performed At | + + + | New Reference ranges effective 07 for: Sodium, | [facility] | | Potassium, Chloride,Total CO2, Calcium | DEPARTMENT OF | | | PATHOLOGY | + + + + + + + + | Performing | Address | City/State/Zipcode | Phone Number | | Organization | | | | + + + + + | [facility] DEPARTMENT OF | [address] | [place] [address] | | | PATHOLOGY | [address] | | | + + + + + | [facility] DEPARTMENT OF | [facility] | [place] [address] | | | PATHOLOGY | [address] | | | + + + + + SODIUM, PLASMA (10/26/2007 5:00 PM PDT) + + + + + + | Component | Value | Ref Range | Performed | Pathologist | | | | | At | Signature | + + + + + + | SODIUM, | Combined. | 134 - 143 | [facility] | | | PLASMA | | mmol/L | DEPARTMENT | | | (LAB) | | | OF | | | | | | PATHOLOGY | | + + + + + + + + | Specimen | + + | Blood - Blood | + + + + + | Narrative | Performed At | + + + | New Reference ranges effective 07 for: Sodium, | [facility] | | Potassium, Chloride,Total CO2, Calcium Combined with request same | DEPARTMENT OF | | date/time. | PATHOLOGY | + + + + + + + + | Performing | Address | City/State/Zipcode | Phone Number | | Organization | | | | + + + + + | [facility] DEPARTMENT OF | [address] [facility] [address] [facility] | [place] [address] | | | PATHOLOGY | [address] | | | + + + + + | [facility] DEPARTMENT OF | [address] [facility] [address] [facility] | [place] [address] | | | PATHOLOGY | [address] | | | + + + + + RESP CARE THERAPY (10/26/2007 4:30 PM PDT) + + + + + + | Component | Value | Ref Range | Performed | Pathologist | | | | | At | Signature | + + + + + + | RESPIRATORY | Pain Assessment:Patients | | [facility] | | | CARE | pain assessed and was a | | RESPIRATORY | | | | 0 on a scale of | | THERAPY | | | | 0-10.Interventions:Medic | | | | | | ation given via inhaler | | | | | | with Combivent 4 puffs . | | | | | | Total combined | | | | | | puffsgiven: 4 | | | | | | puffs.Assessment:Breath | | | | | | Sounds: coarse | | | | | | .Cough/Sputum: Patient | | | | | | had a productive cough. | | | | | | Secretions | | | | | | obtained:secretions | | | | | | swallowed.Outcome after | | | | | | therapy: There was | | | | | | minimal improvement in | | | | | | BS or work ofbreathing | | | | | | after therapy.Treatment | | | | | | Plan:No changes in | | | | | | therapy are | | | | | | indicated.Electronically | | | | | | Signed by: Humble | | | | | | Desmond, | | | | + + + + + + + + | Specimen | + + | | + + + + + | Narrative | Performed At | + + + | Ordered by an unspecified provider. | [facility] | | | RESPIRATORY | | | THERAPY | + + + + + + + + | Performing | Address | City/State/Zipcode | Phone Number | | Organization | | | | + + + + + | [facility] RES[facility]ORY | [address] | [place], [place] | | | THERAPY | [address] | [address] | | + + + + + | [facility] | [address] [facility] [facility] [address] | [place], [place] | | | THERAPY | [address] | [address] | | + + + + + SPECIFIC GRAVITY, BODY FLUID (10/26/2007 4:05 PM PDT) + + + + + + | Component | Value | Ref Range | Performed | Pathologist | | | | | At | Signature | + + + + + + | SPEC GRAV | Not Recd | | [facility] | | | BODY FLUID | | | DEPARTMENT | | | | | | OF | | | | | | PATHOLOGY | | + + + + + + | TYPE OF | URN | | [facility] | | | FLUID | URN | | DEPARTMENT | | | | [...] DEPARTMENT OF | [address] | [place] [address] | | | PATHOLOGY | [address] | | | + + + + + | [facility] | [address] | [place] [address] | | | PATHOLOGY | [address] | | | + + + + + RESP CARE THERAPY (10/26/2007 1:00 PM PDT) + + + + + + | Component | Value | Ref Range | Performed | Pathologist | | | | | At | Signature | + + + + + + | RESPIRATORY | Pain Assessment:Patients | | [facility] | | | CARE | pain assessed and was a | | RESPIRATORY | | | | 0 on a scale of | | THERAPY | | | | 0-10.Interventions:Medic | | | | | | ation given via inhaler | | | | | | with Combivent 4 puffs . | | | | | | Total combined | | | | | | puffsgiven: 4 | | | | | | puffs.Assessment:Breath | | | | | | Sounds: diminished | | | | | | .Cough/Sputum: Patient | | | | | | had a productive cough. | | | | | | Secretions | | | | | | obtained:secretions | | | | | | swallowed.Outcome after | | | | | | therapy: There was | | | | | | minimal improvement in | | | | | | BS or work ofbreathing | | | | | | after therapy.Treatment | | | | | | Plan:No changes in | | | | | | therapy are | | | | | | indicated.Electronically | | | | | | Signed by: Humble | | | | | | Desmond, | | | | + + + + + + + + | Specimen | + + | | + + + + + | Narrative | Performed At | + + + | Ordered by an unspecified provider. | [facility] | | | RESPIRATORY | | | THERAPY | + + + + + + + + | Performing | Address | City/State/Zipcode | Phone Number | | Organization | | | | + + + + + | [facility] RESP[facility] | [address] | [place], [place] | | | THERAPY | [address] | [address] | | + + + + + | [facility] RES[facility] | [address] [facility] | [place], [place] | | | THERAPY | [address] | [address] | | + + + + + SPECIFIC GRAVITY, BODY FLUID (10/26/2007 10:05 AM PDT) + + + + + + | Component | Value | Ref Range | Performed | Pathologist | | | | | At | Signature | + + + + + + | SPEC GRAV | Not Recd | | [facility] | | | BODY FLUID | | | DEPARTMENT | | | | | | OF | | | | | | PATHOLOGY | | + + + + + + | TYPE OF | URN | | [facility] | | | FLUID | URN | | DEPARTMENT | | | | [...] DEPARTMENT OF | [address] | [place] [address] | | | PATHOLOGY | [address] | | | + + + + + | [facility] | [address] | [place] [address] | | | PATHOLOGY | [address] | | | + + + + + UA DIPSTICK ONLY, POC RESULT (10/26/2007 10:00 AM PDT) + +-------+ + + + | Component | Value | Ref Range | Performed | Pathologist | | | | | At | Signature | + +-------+ + + + | SPECIFIC | 1.011 | 1.005 - 1.03 | | | | GRAVITY (UA | | | | | | DIP), POC | | | | | + +-------+ + + + POTASSIUM, PLASMA (10/26/2007 8:44 AM PDT) + + + + + + | Component | Value | Ref Range | Performed | Pathologist | | | | | At | Signature | + + + + + + | POTASSIUM, | Combined. | 3.4 - 5.0 | [facility] | | | PLASMA | | mmol/L | DEPARTMENT | | | (LAB) | | | OF | | | | | | PATHOLOGY | | + + + + + + | POTASSIUM | Combined. | | [facility] | | | CMNT | | | DEPARTMENT | | | | | | OF | | | | | | PATHOLOGY | | + + + + + + + + | Specimen | + + | Blood - Blood | + + + + + | Narrative | Performed At | + + + | New Reference ranges effective 07 for: Sodium, | [facility] | | Potassium, Chloride,Total CO2, Calcium Combined with request same | DEPARTMENT OF | | date/time. | PATHOLOGY | + + + + + + + + | Performing | Address | City/State/Zipcode | Phone Number | | Organization | | | | + + + + + | [facility] DEPARTMENT OF | [address] | [place] [address] | | | PATHOLOGY | [address] | | | + + + + + | [facility] DEPARTMENT | [address] | [place] [address] | | | PATHOLOGY | [address] | | | + + + + + POTASSIUM, PLASMA (10/26/2007 8:43 AM PDT) + +---------+ + + + | Component | Value | Ref Range | Performed | Pathologist | | | | | At | Signature | + +---------+ + + + | POTASSIUM, | 2.5 (*) | 3.4 - 5.0 | [facility] | | | PLASMA | | mmol/L | DEPARTMENT | | | (LAB) | | | OF | | | | | | PATHOLOGY | | + +---------+ + + + + + | Specimen | + + | | + + + + + | Narrative | Performed At | + + + | New Reference ranges effective 07 for: Sodium, | [facility] | | Potassium, Chloride,Total CO2, Calcium K Phoned Readback. | DEPARTMENT OF | | | PATHOLOGY | + + + + + + + + | Performing | Address | City/State/Zipcode | Phone Number | | Organization | | | | + + + + + | [facility] DEPARTMENT OF | [address] | [place] [address] | | | PATHOLOGY | [address] | | | + + + + + | [facility] DEPARTMENT OF | [address] | [place] [address] | | | PATHOLOGY | [address] | | | + + + + + SODIUM, PLASMA (10/26/2007 8:43 AM PDT) + +-------+ + + + | Component | Value | Ref Range | Performed | Pathologist | | | | | At | Signature | + +-------+ + + + | SODIUM, | 143 | 134 - 143 | [facility] | | | PLASMA | | mmol/L | DEPARTMENT | | | (LAB) | | | OF | | | | | | PATHOLOGY | | + +-------+ + + + + + | Specimen | + + | Blood - Blood | + + + + + | Narrative | Performed At | + + + | New Reference ranges effective 07 for: Sodium, | [facility] | | Potassium, Chloride,Total CO2, Calcium K Phoned Readback. | DEPARTMENT OF | | | PATHOLOGY | + + + + + + + + | Performing | Address | City/State/Zipcode | Phone Number | | Organization | | | | + + + + + | [facility] | [address] [facility] [address] | [place] [address] | | | PATHOLOGY | [address] | | | + + + + + | [facility] | [address] [facility] | [place] [address] | | | PATHOLOGY | [address] | | | + + + + + RESP CARE THERAPY (10/26/2007 7:45 AM PDT) + + + + + + | Component | Value | Ref Range | Performed | Pathologist | | | | | At | Signature | + + + + + + | RESPIRATORY | Pain Assessment:Patients | | [facility] | | | CARE | pain assessed and was a | | RESPIRATORY | | | | 1 on a scale of | | THERAPY | | | | 0-10.Interventions:Medic | | | | | | ation given via inhaler | | | | | | with Combivent 4 puffs . | | | | | | Total combined | | | | | | puffsgiven: 4 | | | | | | puffs.Assessment:Breath | | | | | | Sounds: coarse | | | | | | .Cough/Sputum: Patient | | | | | | had a productive cough. | | | | | | Secretions | | | | | | obtained:secretions | | | | | | swallowed.Outcome after | | | | | | therapy: There was | | | | | | moderate improvement in | | | | | | BS or work ofbreathing | | | | | | after therapy.Treatment | | | | | | Plan:No changes in | | | | | | therapy are | | | | | | indicated.Electronically | | | | | | Signed by: Humble | | | | | | Desmond, | | | | + + + + + + + + | Specimen | + + | | + + + + + | Narrative | Performed At | + + + | Ordered by an unspecified provider. | [facility] | | | RESPIRATORY | | | THERAPY | + + + + + + + + | Performing | Address | City/State/Zipcode | Phone Number | | Organization | | | | + + + + + | [facility] RES[facility] | [address] [facility] | [place], [place] | | | THERAPY | [address] | [address] | | + + + + + | [facility] RES[facility] | [address] [facility] [address] | [place], [place] | | | THERAPY | [address] | [address] | | + + + + + X-RAY PORTABLE CHEST 1 VIEW (10/26/2007 6:34 AM PDT) + + + + + + | Component | Value | Ref Range | Performed | Pathologist | | | | | At | Signature | + + + + + + | X-RAY | EXAM: AP | | | | | PORTABLE | chest.COMPARISON: | | | | | CHEST 1 | 10/24/2007FINDINGS: The | | | | | VIEW | endotracheal tube is | | | | | | been removed. Other | | | | | | supportequipment is | | | | | | unchanged. Cardiac and | | | | | | mediastinal contours | | | | | | are stable. Bibasilar | | | | | | atelectasis is | | | | | | increased. Layering | | | | | | right pleural effusionis | | | | | | unchanged in size. | | | | | | Hydrostatic edema is | | | | | | mildly increased. | | | | | | Thereis no focal | | | | | | consolidation and no | | | | | | pneumothorax.IMPRESSION: | | | | | | 1. Decreased lung | | | | | | volumes after extubation | | | | | | with increased | | | | | | bibasilaratelectasis2. | | | | | | Hydrostatic edema | | | | | | mildly increased.I have | | | | | | personally viewed this | | | | | | procedure/exam and | | | | | | reviewed this | | | | | | report.STATUS FINAL / | | | | | | Dr. MARIZA PRICE | | | | + + + + + + + + | Specimen | + + | | + + + +---------+ + + | Performing | Address | City/State/Zipcode | Phone Number | | Organization | | | | + +---------+ + + | [facility] DEPARTMENT OF | | | | | RADIOLOGY | | | | + +---------+ + + SPECIFIC GRAVITY, RANDOM URINE (REFRACTOMETER), POC IP ONLY (10/26/2007 4:00 AM PDT) + +-------+ + + + | Component | Value | Ref Range | Performed | Pathologist | | | | | At | Signature | + +-------+ + + + | SPECIFIC | 1.013 | 1.002 - 1.03 | | | | GRAVITY, | | | | | | RANDOM UR | | | | | | POC | | | | | + +-------+ + + + RESP CARE THERAPY (10/26/2007 3:10 AM PDT) + + + + + + | Component | Value | Ref Range | Performed | Pathologist | | | | | At | Signature | + + + + + + | RESPIRATORY | Pain Assessment:Patients | | [facility] | | | CARE | pain assessed and was a | | RESPIRATORY | | | | 0 on a scale of | | THERAPY | | | | 0-10.Interventions:Medic | | | | | | ation given via inhaler | | | | | | with Combivent 4 puffs . | | | | | | Total combined | | | | | | puffsgiven: 4 | | | | | | puffs.Assessment:Breath | | | | | | Sounds: coarse | | | | | | .Cough/Sputum: Patient | | | | | | had a non-productive | | | | | | cough.Outcome after | | | | | | therapy: There was | | | | | | minimal improvement in | | | | | | BS or work ofbreathing | | | | | | after therapy.Treatment | | | | | | Plan:No changes in | | | | | | therapy are | | | | | | indicated.Electronically | | | | | | Signed by: Lizzie | | | | | | PJ Iyer | | | | + + + + + + + + | Specimen | + + | | + + + + + | Narrative | Performed At | + + + | Ordered by an unspecified provider. | [facility] | | | RESPIRATORY | | | THERAPY | + + + + + + + + | Performing | Address | City/State/Zipcode | Phone Number | | Organization | | | | + + + + + | [facility] RES[facility] | [address] | [place], [place] | | | THERAPY | [address] | [address] | | + + + + + | [facility] | [address] | [place], [place] | | | THERAPY | [address] | [address] | | + + + + + VASC LAB PORTABLE TRANSCRANIAL DOPPLER COMPLETE (10/26/2007 2:02 AM PDT) + + + + + + | Component | Value | Ref Range | Performed | Pathologist | | | | | At | Signature | + + + + + + | VASC LAB | Med Rec No:[id number] | | | | | PORTABLE | Name: | | | | | TRANSCRANIA | ADRIA ADHIKARIYL | | | | | L DOPPLER | Birthday: 1950 | | | | | COMPLETE | Sex: F | | | | | | Alias:Patient Location: | | | | | | 7NSIStatus: Inpatient | | | | | | ActiveOrdering | | | | | | Physician: | | | | | | ARIEVTCDCPVL PORT | | | | | | TRANSCRANIAL DOP COMP | | | | | | completed on 10/26/2007 | | | | | | 6:22 AMAccession | | | | | | #[id number]:TRANSCRAN | | | | | | IAL DOPPLER EVALUATION: | | | | | | 10/26/2007 Dictated | | | | | | 10/28/2007FINDINGS: | | | | | | A transcranial Doppler | | | | | | evaluation is performed | | | | | | bilaterallyof the extra | | | | | | and intracranial | | | | | | internal carotid | | | | | | arteries, theanterior, | | | | | | middle, and posterior | | | | | | cerebral arteries, the | | | | | | vertebralarteries, and | | | | | | the basilar artery. In | | | | | | the right hemisphere | | | | | | there areelevated mean | | | | | | velocities noted in the | | | | | | middle cerebral artery | | | | | | [id number] cm/sec, in the | | | | | | anterior cerebral | | | | | | artery at 173 cm/sec. | | | | | | Allremaining mean | | | | | | velocities in the right | | | | | | hemisphere are less than | | | | | | 120cm/sec. The right | | | | | | hemispheric ratio is | | | | | | 7.59.In the left | | | | | | hemisphere, all mean | | | | | | velocities are less than | | | | | | 120 cm/sec.Left middle | | | | | | cerebral artery mean | | | | | | velocity is 106 cm/sec | | | | | | with ahemispheric ratio | | | | | | of 3.21.IMPRESSION:The | | | | | | right hemispheric | | | | | | examination is abnormal | | | | | | with evidence of | | | | | | middlecerebral artery | | | | | | vasospasm as well as | | | | | | vasospasm versus | | | | | | hyperdynamicflow in the | | | | | | right anterior cerebral | | | | | | artery. The | | | | | | hemisphericexamination | | | | | | is borderline abnormal | | | | | | for middle cerebral | | | | | | arteryvasospasm. The | | | | | | mean velocity of the | | | | | | left middle cerebral | | | | | | artery isless than the | | | | | | threshold criteria for | | | | | | vasospasm; however, | | | | | | thehemispheric ratio | | | | | | slightly exceeds the | | | | | | threshold criteria for | | | | | | mildmiddle cerebral | | | | | | artery vasospasm.END | | | | | | IMPRESSIONI have | | | | | | personally viewed this | | | | | | procedure/exam and | | | | | | reviewed this | | | | | | report.STATUS FINAL / | | | | | | Dr. JASPREET ERIC | | | | | | JAMESSTATUS PRELIMINARY | | | | | | - UNSIGNED / Johnnie | | | | | | Chana | | | | + + + + + + + + | Specimen | + + | | + + + +---------+ + + | Performing | Address | City/State/Zipcode | Phone Number | | Organization | | | | + +---------+ + + | [facility] DEPARTMENT OF | | | | | RADIOLOGY | | | | + +---------+ + + CBC ONLY (10/26/2007 1:20 AM PDT) + + + + + + | Component | Value | Ref Range | Performed | Pathologist | | | | | At | Signature | + + + + + + | WHITE CELL | 13.3 (H) | 4.4 - 11.0 K/cu | [facility] | | | COUNT | | mm | DEPARTMENT | | | | | | OF | | | | | | PATHOLOGY | | + + + + + + | RED CELL | 2.99 (L) | 4.00 - 5.20 | [facility] | | | COUNT | | M/cu mm | DEPARTMENT | | | | | | OF | | | | | | PATHOLOGY | | + + + + + + | HEMOGLOBIN | 9.7 (L) | 12.0 - 16.0 | [facility] | | | | | g/dL | DEPARTMENT | | | | | | OF | | | | | | PATHOLOGY | | + + + + + + | HEMATOCRIT | 28.2 (L) | 36.0 - 46.0 % | [facility] | | | | | | DEPARTMENT | | | | | | OF | | | | | | PATHOLOGY | | + + + + + + | MCV | 94.1 | 80.0 - 96.0 fL | [facility] | | | | | | DEPARTMENT | | | | | | OF | | | | | | PATHOLOGY | | + + + + + + | MCHC | 34.5 | 33.4 - 35.5 | [facility] | | | | | g/dL | DEPARTMENT | | | | | | OF | | | | | | PATHOLOGY | | + + + + + + | RDW | 13.8 | 11.5 - 15.0 % | [facility] | | | | | | DEPARTMENT | | | | | | OF | | | | | | PATHOLOGY | | + + + + + + | PLATELET | 203 | 150 - 400 K/cu | [facility] [...] | + + + + + | [facility] | [address] [facility] | [place] [address] | | | PATHOLOGY | [address] | | | + + + + + | [facility] | [address] [place] [address] | [place] [address] | | | PATHOLOGY | [address] | | | + + + + + MAGNESIUM, PLASMA (10/26/2007 1:20 AM PDT) + +-------+ + + + | Component | Value | Ref Range | Performed | Pathologist | | | | | At | Signature | + +-------+ + + + | MAGNESIUM,P | 2.0 | 1.8 - 2.5 mg/dL | [facility] | | | LASMA | | | DEPARTMENT | | | | | | OF | | | | | | PATHOLOGY | | + +-------+ + + + + + | Specimen | + + | Blood - Blood | + + + + + | Narrative | Performed At | + + + | New Creatinine Reference ranges effective 07. | [facility] | | | DEPARTMENT OF | | | PATHOLOGY | + + + + + + + + | Performing | Address | City/State/Zipcode | Phone Number | | Organization | | | | + + + + + | [facility] DEPARTMENT OF | [address] | [place] [address] | | | PATHOLOGY | [address] | | | + + + + + | [facility] DEPARTMENT OF | [address] | [place] [address] | | | PATHOLOGY | [address] | | | + + + + + RENAL FUNCTION SET (NA,K,CL,CO2,BUN,CREAT,GLUC,CA,PHOS,ALB ) (10/26/2007 1:20 AM PDT) + +---------+ + + + | Component | Value | Ref Range | Performed | Pathologist | | | | | At | Signature | + +---------+ + + + | GLUCOSE, | 126 (H) | 60 - 99 mg/dL | [facility] | | | PLASMA | | | DEPARTMENT | | | (LAB) | | | OF | | | | | | PATHOLOGY | | + +---------+ + + + | BUN, PLASMA | 8 | 6 - 20 mg/dL | [facility] | | | (LAB) | | | DEPARTMENT | | | | | | OF | | | | | | PATHOLOGY | | + +---------+ + + + | CREATININE | 0.69 | 0.60 - 1.10 | [facility] | [...] +---------+ + + + | PHOSPHORUS, | 3.3 | 2.4 - 4.7 mg/dL | [facility] [...] Blood | + + + + + | Narrative | Performed At | + + + | New Creatinine Reference ranges effective 07. | [facility] | | | DEPARTMENT OF | | | PATHOLOGY | + + + + + + + + | Performing | Address | City/State/Zipcode | Phone Number | | Organization | | | | + + + + + | [facility] DEPARTMENT OF | [address] | [place] [address] | | | PATHOLOGY | [address] | | | + + + + + | [facility] | [address] | [place] [address] | | | PATHOLOGY | [address] | | | + + + + + RESP CARE THERAPY (10/26/2007 12:27 AM PDT) + + + + + + | Component | Value | Ref Range | Performed | Pathologist | | | | | At | Signature | + + + + + + | RESPIRATORY | Nasal cannula at 4 | | [facility] | | | CARE | LPM.Electronically | | RESPIRATORY | | | | Signed by: Lizzie | | THERAPY | | | | PJ Iyer | | | | + + + + + + + + | Specimen | + + | | + + + + + | Narrative | Performed At | + + + | Ordered by an unspecified provider. | [facility] | | | RESPIRATORY | | | THERAPY | + + + + + + + + | Performing | Address | City/State/Zipcode | Phone Number | | Organization | | | | + + + + + | [facility] RESPIRATORY | [address] | [place] | | | THERAPY | [address] | [address] | | + + + + + | [facility] RES[facility] | [address] | [place], [place] | | | THERAPY | [address] | [address] | | + + + + + SPECIFIC GRAVITY, BODY FLUID (10/26/2007 12:01 AM PDT) + + + + + + | Component | Value | Ref Range | Performed | Pathologist | | | | | At | Signature | + + + + + + | SPEC GRAV | Not Recd | | [facility] | | | BODY FLUID | | | DEPARTMENT | | | | | | OF | | | | | | PATHOLOGY | | + + + + + + | TYPE OF | URN | | [facility] | | | FLUID | URN | | DEPARTMENT | | | | [...] + + + + + | [facility] DEPARTMENT OF | [facility] | [place] [address] | | | PATHOLOGY | [address] | | | + + + + + | [facility] DEPARTMENT OF | [facility] | [place] [address] | | | PATHOLOGY | [address] | | | + + + + + RESP CARE THERAPY (10/25/2007 11:44 PM PDT) + + + + + + | Component | Value | Ref Range | Performed | Pathologist | | | | | At | Signature | + + + + + + | RESPIRATORY | Pain Assessment:Patients | | [facility] | | | CARE | pain assessed and was a | | RESPIRATORY | | | | 0 on a scale of | | THERAPY | | | | 0-10.Interventions:Medic | | | | | | ation given via inhaler | | | | | | with Combivent 4 puffs . | | | | | | Total combined | | | | | | puffsgiven: 4 | | | | | | puffs.Assessment:Breath | | | | | | Sounds: clear | | | | | | .Cough/Sputum: Patient | | | | | | had no cough at this | | | | | | time.Outcome after | | | | | | therapy: Patient's work | | | | | | of breathing decreased | | | | | | after therapy.Treatment | | | | | | Plan:No changes in | | | | | | therapy are | | | | | | indicated.Electronically | | | | | | Signed by: Lizzie | | | | | | PJ Iyer | | | | + + + + + + + + | Specimen | + + | | + + + + + | Narrative | Performed At | + + + | Ordered by an unspecified provider. | [facility] | | | RESPIRATORY | | | THERAPY | + + + + + + + + | Performing | Address | City/State/Zipcode | Phone Number | | Organization | | | | + + + + + | [facility] RESPIRATORY | [address] | [place], [place] | | | THERAPY | [address] | [address] | | + + + + + | [facility] RES[facility] | [address] | [place], [place] | | | THERAPY | [facility] | [address] | | + + + + + SPECIFIC GRAVITY, RANDOM URINE (REFRACTOMETER), POC IP ONLY (10/25/2007 11:00 PM PDT) + +-------+ + + + | Component | Value | Ref Range | Performed | Pathologist | | | | | At | Signature | + +-------+ + + + | SPECIFIC | 1.020 | 1.002 - 1.03 | | | | GRAVITY, | | | | | | RANDOM UR | | | | | | POC | | | | | + +-------+ + + + SPECIFIC GRAVITY, BODY FLUID (10/25/2007 10:05 PM PDT) + + + + + + | Component | Value | Ref Range | Performed | Pathologist | | | | | At | Signature | + + + + + + | SPEC GRAV | Not Recd | | [facility] | | | BODY FLUID | | | DEPARTMENT | | | | | | OF | | | | | | PATHOLOGY | | + + + + + + | TYPE OF | URN | | [facility] | | | FLUID | URN | | DEPARTMENT | | | | [...] | + + + + + | [facility] | [address] [facility] | [place] [address] | | | PATHOLOGY | [address] | | | + + + + + | [facility] | [address] [facility] | [place] [address] | | | PATHOLOGY | [address] | | | + + + + + SODIUM, PLASMA (10/25/2007 5:30 PM PDT) + +---------+ + + + [...] At | + + + | New Reference ranges effective 07 for: Sodium, | [facility] | | Potassium, Chloride,Total CO2, Calcium | DEPARTMENT OF | | | PATHOLOGY | + + + + + + + + | Performing | Address | City/State/Zipcode | Phone Number | | Organization | | | | + + + + + | [facility] DEPARTMENT OF | [address] | [place] [address] | | | PATHOLOGY | [address] | | | + + + + + | [facility] DEPARTMENT OF | [address] | [place] [address] | | | PATHOLOGY | [address] | | | + + + + + POTASSIUM, PLASMA (10/25/2007 5:30 PM PDT) + +---------+ + + + | Component | Value | Ref Range | Performed | Pathologist | | | | | At | Signature | + +---------+ + + + | POTASSIUM, | 3.1 (L) | 3.4 - 5.0 | [facility] | | | PLASMA | | mmol/L | DEPARTMENT | | | (LAB) | | | OF | | | | | | PATHOLOGY | | + +---------+ + + + + + | Specimen | + + | Blood - Blood | + + + + + | Narrative | Performed At | + + + | New Reference ranges effective 07 for: Sodium, | [facility] | | Potassium, Chloride,Total CO2, Calcium | DEPARTMENT OF | | | PATHOLOGY | + + + + + + + + | Performing | Address | City/State/Zipcode | Phone Number | | Organization | | | | + + + + + | [facility] | [address] [facility] | [place] [address] | | | PATHOLOGY | [address] | | | + + + + + | [facility] | [address] [place] [address] | [place] [address] | | | PATHOLOGY | [address] | | | + + + + + SODIUM, PLASMA (10/25/2007 5:30 PM PDT) + + + + + + | Component | Value | Ref Range | Performed | Pathologist | | | | | At | Signature | + + + + + + | SODIUM, | Combined. | 134 - 143 | [facility] | | | PLASMA | | mmol/L | DEPARTMENT | | | (LAB) | | | OF | | | | | | PATHOLOGY | | + + + + + + + + | Specimen | + + | Blood - Blood | + + + + + | Narrative | Performed At | + + + | New Reference ranges effective 07 for: Sodium, | [facility] | | Potassium, Chloride,Total CO2, Calcium Combined with request same | DEPARTMENT OF | | date/time. | PATHOLOGY | + + + + + + + + | Performing | Address | City/State/Zipcode | Phone Number | | Organization | | | | + + + + + | [facility] DEPARTMENT | [facility] [facility] | [place] [address] | | | PATHOLOGY | [address] | | | + + + + + | [facility] DEPARTMENT OF | [address] [facility] | [place] [address] | | | PATHOLOGY | [address] | | | + + + + + RESP CARE THERAPY (10/25/2007 5:10 PM PDT) + + + + + + | Component | Value | Ref Range | Performed | Pathologist | | | | | At | Signature | + + + + + + | RESPIRATORY | Pain Assessment:Patients | | [facility] | | | CARE | pain assessed and was a | | RESPIRATORY | | | | 1 on a scale of | | THERAPY | | | | 0-10.Interventions:Medic | | | | | | ation given via inhaler | | | | | | with Combivent 4 puffs . | | | | | | Total combined | | | | | | puffsgiven: 4 | | | | | | puffs.Assessment:Breath | | | | | | Sounds: clear diminished | | | | | | .Cough/Sputum: Patient | | | | | | had a productive cough. | | | | | | Secretions | | | | | | obtained:secretions | | | | | | swallowed.Outcome after | | | | | | therapy: There was | | | | | | moderate improvement in | | | | | | BS or work ofbreathing | | | | | | after therapy.Treatment | | | | | | Plan:No changes in | | | | | | therapy are | | | | | | indicated.Electronically | | | | | | Signed by: Alex | | | | | | PJ Ozuna | | | | + + + + + + + + | Specimen | + + | | + + + + + | Narrative | Performed At | + + + | Ordered by an unspecified provider. | [facility] | | | RESPIRATORY | | | THERAPY | + + + + + + + + | Performing | Address | City/State/Zipcode | Phone Number | | Organization | | | | + + + + + | [facility] RESPIRATORY | [address] | [place], [place] | | | THERAPY | [address] | [address] | | + + + + + | [facility] RESP[facility] | [address] | [place], [place] | | | THERAPY | [address] [facility] | [address] | | + + + + + ANESTHESIA/SEDATION (10/25/2007 4:45 PM PDT) + + + | Narrative | Performed At | + + + | | | + + + + + | Procedure Note | + + | Other, Faculty - 10/25/2007 4:45 PM PDT | + + SPECIFIC GRAVITY, BODY FLUID (10/25/2007 4:05 PM PDT) + + + + + + | Component | Value | Ref Range | Performed | Pathologist | | | | | At | Signature | + + + + + + | SPEC GRAV | Not Recd | | [facility] | | | BODY FLUID | | | DEPARTMENT | | | | | | OF | | | | | | PATHOLOGY | | + + + + + + | TYPE OF | URN | | [facility] | | | FLUID | URN | | DEPARTMENT | | | | [...] | + + + + + | [facility] | [facility] | [place] [address] | | | PATHOLOGY | [address] | | | + + + + + | [facility] | [address] [place] [address] | [place] [address] | | | PATHOLOGY | [address] | | | + + + + + SAL RAHMAN ONLY (10/25/2007 2:15 PM PDT) + + + + + + | Component | Value | Ref Range | Performed | Pathologist | | | | | At | Signature | + + + + + + | COLOR(UR) | Straw | | [facility] | | | | [...] + + + + | SPECIFIC | 1.010 | 1.005 - 1.030 | [facility] | | | GRAVITY | | | DEPARTMENT | | | | | | OF | | | | | | PATHOLOGY | | + + + + + + | BLOOD | Small | | [facility] | | | | | | DEPARTMENT | | | | | | OF | | | | | | PATHOLOGY | | + + + + + + | PH(UR) | 8.0 | 5.0 - 8.0 | [facility] | [...] + + + + | NITRITES | Negative | Negative | [facility] | [...] + + + + + | [facility] DEPARTMENT OF | [address] | [place] [address] | | | PATHOLOGY | [address] | | | + + + + + | [facility] DEPARTMENT OF | [facility] | [place] [address] | | | PATHOLOGY | [address] | | | + + + + + SPECIFIC GRAVITY, BODY FLUID (10/25/2007 2:15 PM PDT) + + + + + + | Component | Value | Ref Range | Performed | Pathologist | | | | | At | Signature | + + + + + + | SPEC GRAV | Combined. | | [facility] | | | BODY FLUID | | | DEPARTMENT | | | | | | OF | | | | | | PATHOLOGY | | + + + + + + | TYPE OF | URN | | [facility] | | | FLUID | URN | | DEPARTMENT | | | | | | OF | | | | | | PATHOLOGY | | + + + + + + + + | Specimen | + + | Urine - Urine | + + + + + | Narrative | Performed At | + + + | Combined with request same date/time. | [facility] | | | DEPARTMENT OF | | | PATHOLOGY | + + + + + + + + | Performing | Address | City/State/Zipcode | Phone Number | | Organization | | | | + + + + + | [facility] DEPARTMENT OF | [address] [facility] | [place] [address] | | | PATHOLOGY | [address] | | | + + + + + | [facility] DEPARTMENT OF | [address] [facility] | [place] [address] | | | PATHOLOGY | [address] | | | + + + + + RESP CARE THERAPY (10/25/2007 1:20 PM PDT) + + + + + + | Component | Value | Ref Range | Performed | Pathologist | | | | | At | Signature | + + + + + + | RESPIRATORY | Pain Assessment:Patients | | [facility] | | | CARE | pain assessed and was a | | RESPIRATORY | | | | 0 on a scale of | | THERAPY | | | | 0-10.Interventions:Medic | | | | | | ation given via inhaler | | | | | | with Combivent 4 puffs . | | | | | | Total combined | | | | | | puffsgiven: 4 | | | | | | puffs.Assessment:Breath | | | | | | Sounds: clear diminished | | | | | | .Cough/Sputum: Patient | | | | | | had a productive cough. | | | | | | Secretions | | | | | | obtained:secretions | | | | | | swallowed.Outcome after | | | | | | therapy: There was | | | | | | moderate improvement in | | | | | | BS or work ofbreathing | | | | | | after therapy.Treatment | | | | | | Plan:No changes in | | | | | | therapy are | | | | | | indicated.Electronically | | | | | | Signed by: Alex | | | | | | PJ Ozuna | | | | + + + + + + + + | Specimen | + + | | + + + + + | Narrative | Performed At | + + + | Ordered by an unspecified provider. | [facility] | | | RESPIRATORY | | | THERAPY | + + + + + + + + | Performing | Address | City/State/Zipcode | Phone Number | | Organization | | | | + + + + + | [facility] RESPIRATORY | [address] [facility] | [place], [place] | | | THERAPY | [address] | [address] | | + + + + + | [facility] RESP[facility]ORY | [address] [facility] | [place], [place] | | | THERAPY | [address] | [address] | | + + + + + SPECIFIC GRAVITY, BODY FLUID (10/25/2007 10:05 AM PDT) + +-------+ + + + | Component | Value | Ref Range | Performed | Pathologist | | | | | At | Signature | + +-------+ + + + | SPEC GRAV | 1.010 | | [facility] | | | BODY FLUID | | | DEPARTMENT | | | | | | OF | | | | | | PATHOLOGY | | + +-------+ + + + | TYPE OF | URN | | [facility] | | | FLUID | URN | | DEPARTMENT | | | | | | OF | | | | | | PATHOLOGY | | + +-------+ + + + + + | Specimen | + + | Urine - Urine | + + + + + | Narrative | Performed At | + + + | * Corrected 10/26/07 14:21: SPEC GRAV,BODY FLUID, prev report: | [facility] | | Not Recd | DEPARTMENT OF | | | PATHOLOGY | + + + + + + + + | Performing | Address | City/State/Zipcode | Phone Number | | Organization | | | | + + + + + | [facility] | [address] | [place] [address] | | | PATHOLOGY | [address] | | | + + + + + | [facility] | [facility] [address] | [place] [address] | | | PATHOLOGY | [address] | | | + + + + + SODIUM, PLASMA (10/25/2007 10:00 AM PDT) + +-------+ + + + | Component | Value | Ref Range | Performed | Pathologist | | | | | At | Signature | + +-------+ + + + | SODIUM, | 143 | 134 - 143 | [facility] | | | PLASMA | | mmol/L | DEPARTMENT | | | (LAB) | | | OF | | | | | | PATHOLOGY | | + +-------+ + + + + + | Specimen | + + | | + + + + + | Narrative | Performed At | + + + | New Reference ranges effective 07 for: Sodium, | [facility] | | Potassium, Chloride,Total CO2, Calcium | DEPARTMENT OF | | | PATHOLOGY | + + + + + + + + | Performing | Address | City/State/Zipcode | Phone Number | | Organization | | | | + + + + + | [facility] DEPARTMENT OF | [address] | [place] [address] | | | PATHOLOGY | [address] | | | + + + + + | [facility] DEPARTMENT OF | [address] | [place] [address] | | | PATHOLOGY | [address] | | | + + + + + POTASSIUM, PLASMA (10/25/2007 10:00 AM PDT) + +---------+ + + + | Component | Value | Ref Range | Performed | Pathologist | | | | | At | Signature | + +---------+ + + + | POTASSIUM, | 3.0 (L) | 3.4 - 5.0 | [facility] | | | PLASMA | | mmol/L | DEPARTMENT | | | (LAB) | | | OF | | | | | | PATHOLOGY | | + +---------+ + + + + + | Specimen | + + | Blood - Blood | + + + + + | Narrative | Performed At | + + + | New Reference ranges effective 07 for: Sodium, | [facility] | | Potassium, Chloride,Total CO2, Calcium | DEPARTMENT OF | | | PATHOLOGY | + + + + + + + + | Performing | Address | City/State/Zipcode | Phone Number | | Organization | | | | + + + + + | [facility] DEPARTMENT OF | [address] | [place] [address] | | | PATHOLOGY | [address] | | | + + + + + | [facility] DEPARTMENT OF | [address] | [place] [address] | | | PATHOLOGY | [address] | | | + + + + + SODIUM, PLASMA (10/25/2007 10:00 AM PDT) + + + + + + | Component | Value | Ref Range | Performed | Pathologist | | | | | At | Signature | + + + + + + | SODIUM, | Combined. | 134 - 143 | [facility] | | | PLASMA | | mmol/L | DEPARTMENT | | | (LAB) | | | OF | | | | | | PATHOLOGY | | + + + + + + + + | Specimen | + + | Blood - Blood | + + + + + | Narrative | Performed At | + + + | New Reference ranges effective 07 for: Sodium, | [facility] | | Potassium, Chloride,Total CO2, Calcium Combined with request same | DEPARTMENT OF | | date/time. | PATHOLOGY | + + + + + + + + | Performing | Address | City/State/Zipcode | Phone Number | | Organization | | | | + + + + + | [facility] DEPARTMENT OF | [address] | [place] [address] | | | PATHOLOGY | [address] | | | + + + + + | [facility] DEPARTMENT | [address] | [place] [address] | | | PATHOLOGY | [address] | | | + + + + + SAL RAHMAN ONLY (10/25/2007 9:30 AM PDT) + + + + + + | Component | Value | Ref Range | Performed | Pathologist | | | | | At | Signature | + + + + + + | COLOR(UR) | Straw | | [facility] | | | | [...] + + + + | SPECIFIC | 1.010 | 1.005 - 1.030 | [facility] | | | GRAVITY | | | DEPARTMENT | | | | | | OF | | | | | | PATHOLOGY | | + + + + + + | BLOOD | Trace | | [facility] | | | | | | DEPARTMENT | | | | | | OF | | | | | | PATHOLOGY | | + + + + + + | PH(UR) | 7.0 | 5.0 - 8.0 | [facility] | [...] + + + + | NITRITES | Negative | Negative | [facility] | [...] DEPARTMENT OF | [address] | [place], [place] [address] | | | PATHOLOGY | [address] | | | + + + + + | [facility] DEPARTMENT | [address] | [place] [address] | | | PATHOLOGY | [address] | | | + + + + + RESP CARE THERAPY (10/25/2007 9:13 AM PDT) + + + + + + | Component | Value | Ref Range | Performed | Pathologist | | | | | At | Signature | + + + + + + | RESPIRATORY | Pain Assessment:Patients | | [facility] | | | CARE | pain assessed and was a | | RESPIRATORY | | | | 1 on a scale of | | THERAPY | | | | 0-10.Interventions:Medic | | | | | | ation given via inhaler | | | | | | with Combivent 4 puffs . | | | | | | Total combined | | | | | | puffsgiven: 4 | | | | | | puffs.Assessment:Breath | | | | | | Sounds: wheeze upper | | | | | | airway and diminished in | | | | | | the bases | | | | | | .Cough/Sputum: Patient | | | | | | had a productive cough. | | | | | | Secretions | | | | | | obtained:secretions | | | | | | swallowed.Outcome after | | | | | | therapy: There was | | | | | | moderate improvement in | | | | | | BS or work ofbreathing | | | | | | after therapy.Treatment | | | | | | Plan:No changes in | | | | | | therapy are | | | | | | indicated.Electronically | | | | | | Signed by: Alex | | | | | | PJ Ozuna | | | | + + + + + + + + | Specimen | + + | | + + + + + | Narrative | Performed At | + + + | Ordered by an unspecified provider. | [facility] | | | RESPIRATORY | | | THERAPY | + + + + + + + + | Performing | Address | City/State/Zipcode | Phone Number | | Organization | | | | + + + + + | [facility] RESP[facility]ATORY | [address] | [place], [place] | | | THERAPY | [address] | [address] | | + + + + + | [facility] RESP[facility]ORY | [address] [facility] | [place], [place] | | | THERAPY | [address] | [address] | | + + + + + RESP CARE THERAPY (10/25/2007 5:21 AM PDT) + + + + + + | Component | Value | Ref Range | Performed | Pathologist | | | | | At | Signature | + + + + + + | RESPIRATORY | Nasal cannula at 3 | | [facility] | | | CARE | LPM.Electronically | | RESPIRATORY | | | | Signed by: Silvia | | THERAPY | | | | PJ Wolf | | | | + + + + + + + + | Specimen | + + | | + + + + + | Narrative | Performed At | + + + | Ordered by an unspecified provider. | [facility] | | | RESPIRATORY | | | THERAPY | + + + + + + + + | Performing | Address | City/State/Zipcode | Phone Number | | Organization | | | | + + + + + | [facility] RESP[facility] | [address] [facility] | [place], [place] | | | THERAPY | [address] | [address] | | + + + + + | [facility] RESP[facility] | [address] [facility] | [place], [place] | | | THERAPY | [address] | [address] | | + + + + + VASC LAB PORTABLE TRANSCRANIAL DOPPLER COMPLETE (10/25/2007 2:03 AM PDT) + + + + + + | Component | Value | Ref Range | Performed | Pathologist | | | | | At | Signature | + + + + + + | VASC LAB | [facility] Rec No:[id number] | | | | | PORTABLE | Name: | | | | | TRANSCRANIA | GLORIA ADHIKARI | | | | | L DOPPLER | Birthday: 1950 | | | | | COMPLETE | Sex: F | | | | | | Alias:Patient Location: | | | | | | 7NSIStatus: Inpatient | | | | | | ActiveOrdering | | | | | | Physician: | | | | | | ACLANDOGAJalen,VTCDCPVL PORT | | | | | | TRANSCRANIAL DOP COMP | | | | | | completed on 10/25/2007 | | | | | | 6:27 AMAccession | | | | | | #[id number]:TRANSCRAN | | | | | | IAL DOPPLER STUDY: | | | | | | 10/25/2007 Dictated | | | | | | 10/25/2007INDICATION: | | | | | | Vasospasm.The blood | | | | | | pressure at the time of | | | | | | this examination was | | | | | | 164/92 mmHg.The duplex | | | | | | scanner was used to | | | | | | examine the ophthalmic, | | | | | | intracranial,internal | | | | | | carotid, middle | | | | | | cerebral, anterior | | | | | | cerebral, | | | | | | posteriorcerebral and | | | | | | intracranial vertebral | | | | | | arteries bilaterally. | | | | | | Thebasilar artery and | | | | | | extracranial internal | | | | | | carotid arteries were | | | | | | alsoexamined.All of the | | | | | | above-noted vessels were | | | | | | patent with flows in | | | | | | the normaldirection.The | | | | | | maximum middle cerebral | | | | | | artery flow velocity on | | | | | | the right is 260cm/sec | | | | | | with a mean velocity of | | | | | | 151 cm/sec and a | | | | | | calculatedhemispheric | | | | | | ratio of 5.6.The maximum | | | | | | middle cerebral artery | | | | | | flow velocity on the | | | | | | left is 262cm/sec with a | | | | | | mean velocity of 162 | | | | | | cm/sec and a | | | | | | calculatedhemispheric | | | | | | ratio of | | | | | | 4.76.IMPRESSION:IMPRESSI | | | | | | ON:Transcranial Doppler | | | | | | study with evidence of | | | | | | vasospasm in the | | | | | | middlecerebral | | | | | | distributions of both | | | | | | the right and left | | | | | | hemispheres.END | | | | | | IMPRESSION:END | | | | | | IMPRESSIONI have | | | | | | personally viewed this | | | | | | procedure/exam and | | | | | | reviewed this | | | | | | report.STATUS FINAL / | | | | | | Dr. KALIA ERIC | | | | | | L.STATUS PRELIMINARY - | | | | | | UNSIGNED / [place] [facility] | | | | + + + [...] | | + +---------+ + + CBC ONLY (10/25/2007 2:00 AM PDT) + + + + + + | Component | Value | Ref Range | Performed | Pathologist | | | | | At | Signature | + + + + + + | WHITE CELL | 14.1 (H) | 4.4 - 11.0 K/cu | [facility] | | | COUNT | | mm | DEPARTMENT | | | | | | OF | | | | | | PATHOLOGY | | + + + + + + | RED CELL | 2.95 (L) | 4.00 - 5.20 | [facility] [...] + + + + | HEMATOCRIT | 27.5 (L) | 36.0 - 46.0 % | [facility] | | | | | | DEPARTMENT | | | | | | OF | | | | | | PATHOLOGY | | + + + + + + | MCV | 93.2 | 80.0 - 96.0 fL | [facility] | | | | | | DEPARTMENT | | | | | | OF | | | | | | PATHOLOGY | | + + + + + + | MCHC | 34.4 | 33.4 - 35.5 | [facility] | | | | | g/dL | DEPARTMENT | | | | | | OF | | | | | | PATHOLOGY | | + + + + + + | RDW | 13.6 | 11.5 - 15.0 % | [facility] | | | | | | DEPARTMENT | | | | | | OF | | | | | | PATHOLOGY | | + + + + + + | PLATELET | 191 | 150 - 400 K/cu | [facility] [...] + + + + + | [facility] DEPARTMENT OF | [address] | [place] [address] | | | PATHOLOGY | [address] | | | + + + + + | [facility] DEPARTMENT OF | [address] [facility] | [place] [address] | | | PATHOLOGY | [address] | | | + + + + + MAGNESIUM, PLASMA (10/25/2007 2:00 AM PDT) + +---------+ + + + | Component | Value | Ref Range | Performed | Pathologist | | | | | At | Signature | + +---------+ + + + | MAGNESIUM,P | 1.6 (L) | 1.8 - 2.5 mg/dL | [facility] | | | L[facility] | | | DEPARTMENT | | | | | | OF | | | | | | PATHOLOGY | | + +---------+ + + + + + | Specimen | + + | Blood - Blood | + + + + + | Narrative | Performed At | + + + | New Creatinine Reference ranges effective 07. | [facility] | | Irvin Quiroz. | DEPARTMENT OF | | | PATHOLOGY | + + + + + + + + | Performing | Address | City/State/Zipcode | Phone Number | | Organization | | | | + + + + + | [facility] | [address] [facility] | [place] [address] | | | PATHOLOGY | [address] | | | + + + + + | [facility] | [address] [facility] | [place] [address] | | | PATHOLOGY | [address] | | | + + + + + RENAL FUNCTION SET (NA,K,CL,CO2,BUN,CREAT,GLUC,CA,PHOS,ALB ) (10/25/2007 2:00 AM PDT) + + + + + + | Component | Value | Ref Range | Performed | Pathologist | | | | | At | Signature | + + + + + + | GLUCOSE, | 100 (H) | 60 - 99 mg/dL | [...] + + + + | CREATININE | 0.58 (L) | 0.60 - 1.10 | [facility] | | | PLASMA | | mg/dL | DEPARTMENT | | | (LAB) | | | OF | | | | | | PATHOLOGY | | + + + + + + | ALBUMIN, | 2.5 (L) | 3.5 - 4.7 g/dL | [facility] | | | PLASMA | | | DEPARTMENT | | | (LAB) | | | OF | | | | | | PATHOLOGY | | + + + + + + | PHOSPHORUS, | 2.7 | 2.4 - 4.7 mg/dL | [facility] | | | PLASMA | | | DEPARTMENT | | | (LAB) | | | OF | | | | | | PATHOLOGY | | + + + + + + | SODIUM, | 146 (H) | 134 - 143 | [facility] | | | PLASMA | | mmol/L | DEPARTMENT | | | (LAB) | | | OF | | | | | | PATHOLOGY | | + + + + + + | CHLORIDE, | 116 (H) | 97 - 108 mmol/L | [facility] | | | PLASMA | | | DEPARTMENT | | | (LAB) | | | OF | | | | | | PATHOLOGY | | + + + + + + | TOTAL CO2, | 24 | 23 - 31 mmol/L | [facility] | | | PLASMA | | | DEPARTMENT | | | (LAB) | | | OF | | | | | | PATHOLOGY | | + + + + + + | CALCIUM, | 6.8 (*) | 8.6 - 10.2 | [facility] | | | PLASMA | | mg/dL | DEPARTMENT | | | (LAB) | | | OF | | | | | | PATHOLOGY | | + + + + + + | POTASSIUM, | 2.4 (*) | 3.4 - 5.0 | [facility] | | | PLASMA | | mmol/L | DEPARTMENT | | | (LAB) | | | OF | | | | | | PATHOLOGY | | + + + + + + + + | Specimen | + + | Blood - Blood | + + + + + | Narrative | Performed At | + + + | New Creatinine Reference ranges effective 07. | [facility] | | Irvin Quiroz. | DEPARTMENT OF | | | PATHOLOGY | + + + + + + + + | Performing | Address | City/State/Zipcode | Phone Number | | Organization | | | | + + + + + | [facility] DEPARTMENT OF | [facility] | [place] [address] | | | PATHOLOGY | [address] | | | + + + + + | [facility] DEPARTMENT OF | [address] [facility] | [place] [address] | | | PATHOLOGY | [address] | | | + + + + + SPECIFIC GRAVITY, BODY FLUID (10/25/2007 12:01 AM PDT) + + + + + + | Component | Value | Ref Range | Performed | Pathologist | | | | | At | Signature | + + + + + + | SPEC GRAV | Cncl phys | | [facility] | | | BODY FLUID | | | DEPARTMENT | | | | | | OF | | | | | | PATHOLOGY | | + + + + + + | TYPE OF | URN | | [facility] | | | FLUID | URN | | DEPARTMENT | | | | [...] + + + + + | [facility] DEPARTMENT | [address] [facility] | [place] [address] | | | PATHOLOGY | [address] | | | + + + + + | [facility] | [address] [facility] | [place] [address] | | | PATHOLOGY | [address] | | | + + + + + RESP CARE THERAPY (10/24/2007 11:00 PM PDT) + + + + + + | Component | Value | Ref Range | Performed | Pathologist | | | | | At | Signature | + + + + + + | RESPIRATORY | Pain Assessment:Patients | | [facility] | | | CARE | pain assessed and was a | | RESPIRATORY | | | | 0 on a scale of | | THERAPY | | | | 0-10.Interventions:Medic | | | | | | ation given via inhaler | | | | | | with Albuterol 4 puffs . | | | | | | Total combined | | | | | | puffsgiven: 4 | | | | | | puffs.Assessment:Breath | | | | | | Sounds: wheeze | | | | | | .Cough/Sputum: Patient | | | | | | had a non-productive | | | | | | cough.Outcome after | | | | | | therapy: There was | | | | | | minimal improvement in | | | | | | BS or work ofbreathing | | | | | | after therapy.Treatment | | | | | | Plan:No changes in | | | | | | therapy are | | | | | | indicated.Electronically | | | | | | Signed by: Silvia | | | | | | PJ Wolf | | | | + + + + + + + + | Specimen | + + | | + + + + + | Narrative | Performed At | + + + | Ordered by an unspecified provider. | [facility] | | | RESPIRATORY | | | THERAPY | + + + + + + + + | Performing | Address | City/State/Zipcode | Phone Number | | Organization | | | | + + + + + | [facility] RESPIRATORY | [address] [facility] | [place], [place] | | | THERAPY | [address] | [address] | | + + + + + | [facility] RESPIRATORY | [address] | [place], [place] | | | THERAPY | [facility] | [address] | | + + + + + UA DIPSTICK ONLY, POC RESULT (10/24/2007 11:00 PM PDT) + +-------+ + + + | Component | Value | Ref Range | Performed | Pathologist | | | | | At | Signature | + +-------+ + + + | SPECIFIC | 1.009 | 1.005 - 1.03 | | | | GRAVITY (UA | | | | | | DIP), POC | | | | | + +-------+ + + + RESP CARE THERAPY (10/24/2007 8:09 PM PDT) + + + + + + | Component | Value | Ref Range | Performed | Pathologist | | | | | At | Signature | + + + + + + | RESPIRATORY | Pain Assessment:Patients | | [facility] | | | CARE | pain assessed and was a | | RESPIRATORY | | | | 0 on a scale of | | THERAPY | | | | 0-10.Interventions:Medic | | | | | | ation given via inhaler | | | | | | with Combivent 4 puffs . | | | | | | Total combined | | | | | | puffsgiven: 4 | | | | | | puffs.Assessment:Breath | | | | | | Sounds: diminished | | | | | | .Cough/Sputum: Patient | | | | | | had a non-productive | | | | | | cough.Outcome after | | | | | | therapy: There was no | | | | | | improvement in BS or | | | | | | work of breathingafter | | | | | | therapy.Treatment | | | | | | Plan:Non protocol | | | | | | patient.Electronically | | | | | | Signed by: Silvia | | | | | | PJ Wolf | | | | + + + + + + + + | Specimen | + + | | + + + + + | Narrative | Performed At | + + + | Ordered by an unspecified provider. | [facility] | | | RESPIRATORY | | | THERAPY | + + + + + + + + | Performing | Address | City/State/Zipcode | Phone Number | | Organization | | | | + + + + + | [facility] RESP[facility]ORY | [address] [facility] | [place], [place] | | | THERAPY | [address] | [address] | | + + + + + | [facility] RESP[facility]ATORY | [address] [facility] | [place], [place] | | | THERAPY | [address] | [address] | | + + + + + POTASSIUM, PLASMA (10/24/2007 5:20 PM PDT) + +---------+ + + + | Component | Value | Ref Range | Performed | Pathologist | | | | | At | Signature | + +---------+ + + + | POTASSIUM, | 3.0 (L) | 3.4 - 5.0 | [facility] | | | PLASMA | | mmol/L | DEPARTMENT | | | (LAB) | | | OF | | | | | | PATHOLOGY | | + +---------+ + + + + + | Specimen | + + | | + + + + + | Narrative | Performed At | + + + | New Reference ranges effective 07 for: Sodium, | [facility] | | Potassium, Chloride,Total CO2, Calcium | DEPARTMENT OF | | | PATHOLOGY | + + + + + + + + | Performing | Address | City/State/Zipcode | Phone Number | | Organization | | | | + + + + + | [facility] DEPARTMENT OF | [address] | [place] [address] | | | PATHOLOGY | [address] | | | + + + + + | [facility] DEPARTMENT OF | [address] | [place] [address] | | | PATHOLOGY | [address] | | | + + + + + SODIUM, PLASMA (10/24/2007 5:20 PM PDT) + +---------+ + + + | Component | Value | Ref Range | Performed | Pathologist | | | | | At | Signature | + +---------+ + + + | SODIUM, | 151 (H) | 134 - 143 | [facility] | | | PLASMA | | mmol/L | DEPARTMENT | | | (LAB) | | | OF | | | | | | PATHOLOGY | | + +---------+ + + + + + | Specimen | + + | Blood - Blood | + + + + + | Narrative | Performed At | + + + | New Reference ranges effective 07 for: Sodium, | [facility] | | Potassium, Chloride,Total CO2, Calcium | DEPARTMENT OF | | | PATHOLOGY | + + + + + + + + | Performing | Address | City/State/Zipcode | Phone Number | | Organization | | | | + + + + + | [facility] DEPARTMENT OF | [address] | [place] [address] | | | PATHOLOGY | [address] | | | + + + + + | [facility] DEPARTMENT OF | [address] | [place] [address] | | | PATHOLOGY | [address] | | | + + + + + SAL RAHMAN ONLY (10/24/2007 5:00 PM PDT) + + + + + [...] + + + + | KETONES | 15 | mg/dL | [facility] | | | | | | DEPARTMENT | | | | | | OF | | | | | | PATHOLOGY | | + + + + + + | SPECIFIC | 1.015 | 1.005 - 1.030 | [facility] | [...] + + + + | PH(UR) | 8.0 | 5.0 - 8.0 | [facility] | | | | | | DEPARTMENT | | | | | | OF | | | | | | PATHOLOGY | | + + + + + + | PROTEIN(LAB | Trace | mg/dL | [facility] | | | [...] + + + + | NITRITES | Negative | Negative | [facility] | [...] DEPARTMENT OF | [address] | [place] [address] | | | PATHOLOGY | [address] | | | + + + + + | [facility] DEPARTMENT OF | [address] | [place] [address] | | | PATHOLOGY | [address] | | | + + + + + POTASSIUM, PLASMA (10/24/2007 5:00 PM PDT) + + + + + + | Component | Value | Ref Range | Performed | Pathologist | | | | | At | Signature | + + + + + + | POTASSIUM, | Combined. | 3.4 - 5.0 | [facility] | | | PLASMA | | mmol/L | DEPARTMENT | | | (LAB) | | | OF | | | | | | PATHOLOGY | | + + + + + + | POTASSIUM | Combined. | | [facility] | | | CMNT | | | DEPARTMENT | | | | | | OF | | | | | | PATHOLOGY | | + + + + + + + + | Specimen | + + | Blood - Blood | + + + + + | Narrative | Performed At | + + + | New Reference ranges effective 07 for: Sodium, | [facility] | | Potassium, Chloride,Total CO2, Calcium Combined with request same | DEPARTMENT OF | | date/time. | PATHOLOGY | + + + + + + + + | Performing | Address | City/State/Zipcode | Phone Number | | Organization | | | | + + + + + | [facility] | [address] [facility] | [place] [address] | | | PATHOLOGY | [address] | | | + + + + + | [facility] | [address] [facility] | [place] [address] | | | PATHOLOGY | [address] | | | + + + + + RESP CARE THERAPY (10/24/2007 3:59 PM PDT) + + + + + + | Component | Value | Ref Range | Performed | Pathologist | | | | | At | Signature | + + + + + + | RESPIRATORY | Pain Assessment:Patients | | [facility] | | | CARE | pain assessed and was a | | RESPIRATORY | | | | 0 on a scale of | | THERAPY | | | | 0-10.Interventions:Medic | | | | | | ation given via inhaler | | | | | | with Combivent 4 puffs . | | | | | | Total combined | | | | | | puffsgiven: 4 | | | | | | puffs.Assessment:Breath | | | | | | Sounds: diminished | | | | | | .Cough/Sputum: Patient | | | | | | had a productive cough. | | | | | | Secretions | | | | | | obtained:secretions | | | | | | swallowed.Outcome after | | | | | | therapy: Patient's | | | | | | breath sounds improved | | | | | | after therapy.Treatment | | | | | | Plan:No changes in | | | | | | therapy are | | | | | | indicated.Electronically | | | | | | Signed by: Karyn | | | | | | Angela, | | | | + + + + + + + + | Specimen | + + | | + + + + + | Narrative | Performed At | + + + | Ordered by an unspecified provider. | [facility] | | | RESPIRATORY | | | THERAPY | + + + + + + + + | Performing | Address | City/State/Zipcode | Phone Number | | Organization | | | | + + + + + | [facility] RESPIRATORY | [address] [facility] | [place], [place] | | | THERAPY | [address] | [address] | | + + + + + | [facility] RESPIRATORY | [address] [facility] | [place], [place] | | | THERAPY | [address] | [address] | | + + + + + X-RAY ABD LTD FEEDING TUBE EVAL (10/24/2007 2:04 PM PDT) + + + + + + | Component | Value | Ref Range | Performed | Pathologist | | | | | At | Signature | + + + + + + | ABD LTD | EXAM: AP view of lower | | | | | FEEDING | chest and upper abdomen | | | | | TUBE EVAL | for feeding | | | | | | tube.COMPARISON: | | | | | | 10/24/07 at 12:46 | | | | | | p.m.FINDINGS: Feeding | | | | | | tube has been placed | | | | | | with tip projecting in | | | | | | thegastric body. | | | | | | Evaluation of lungs | | | | | | limited as technique was | | | | | | tailoredfor feeding | | | | | | tube | | | | | | placement.IMPRESSION:Fee | | | | | | ding tube tip projecting | | | | | | in the gastric body.I | | | | | | have personally viewed | | | | | | this procedure/exam and | | | | | | reviewed this | | | | | | report.STATUS FINAL / | | | | | | Dr. JAYDA ROSARIO | | | | + + + + + + + + | Specimen | + + | | + + + +---------+ + + | Performing | Address | City/State/Zipcode | Phone Number | | Organization | | | | + +---------+ + + | [facility] DEPARTMENT OF | | | | | RADIOLOGY | | | | + +---------+ + + GRAM SMEAR ONLY, STAT (10/24/2007 12:54 PM PDT) + + + + + + | Component | Value | Ref Range | Performed | Pathologist | | | | | At | Signature | + + + + + + | GRAM SMEAR | No organisms | | [facility] | | | ONLY-[facility] | seen.Moderate White | | DEPARTMENT | | | | blood cells present | | OF | | | | | | PATHOLOGY | | + + + + + + | SMEAR | Specimen | | [facility] | | | PREPARATION | bloody/cloudy;cytospin | | DEPARTMENT | | | | diluted | | OF | | | | [...] + + + + + | [facility] DEPARTMENT OF | [address] | [place] [address] | | | PATHOLOGY | [address] | | | + + + + + | [facility] DEPARTMENT OF | [address] | [place] [address] | | | PATHOLOGY | [address] | | | + + + + + CSF INFO PANEL (10/24/2007 12:54 PM PDT) + + + + + + | Component | Value | Ref Range | Performed | Pathologist | | | | | At | Signature | + + + + + + | CSF | Bloody | Clear | [facility] | | | [...] + + + | CSF COLOR | Mod Xantho | Colorless | [facility] | | | | | | DEPARTMENT | | | | | | OF | | | | | | PATHOLOGY | | + + + + + + + + | Specimen | + + | | + + + + + | Narrative | Performed At | + + + | WBC Phoned Readback. | [facility] | | | DEPARTMENT OF | | | PATHOLOGY | + + + + + + + + | Performing | Address | City/State/Zipcode | Phone Number | | Organization | | | | + + + + + | [facility] DEPARTMENT OF | [address] [facility] | [place] [address] | | | PATHOLOGY | [address] | | | + + + + + | [facility] DE[facility] OF | [address] [facility] | [place] [address] | | | PATHOLOGY | [address] | | | + + + + + CULTURE, CSF BACTI (10/24/2007 12:54 PM PDT) + + + + + [...] at | | | | | | [facility]. Culture: | | | | | | Final Report: No | | | | | | growth after 3 days. | | | | | | Final ReportComment: | | | | | | Test performed at [facility] | | | | | | [facility] | | | | | | Laboratory. | | | | + + + + + + + + | Specimen | + + | Cerebrospinal fluid | + + + + + + + | Performing | Address | City/State/Zipcode | Phone Number | | Organization | | | | + + + + + | [facility] | [address] | [place] [address] | | | LAB-MICRO | | | | + + + + + PROTEIN, CSF (10/24/2007 12:54 PM PDT) + +--------+ + + + | Component | Value | Ref Range | Performed | Pathologist | | | | | At | Signature | + +--------+ + + + | TOTAL | 98 (H) | 15 - 45 mg/dL | [...] Performed At | + + + | WBC Phoned Readback. | [facility] | | | DEPARTMENT OF | | | PATHOLOGY | + + + + + + + + | Performing | Address | City/State/Zipcode | Phone Number | | Organization | | | | + + + + + | [facility] | [address] [facility] | [place] [address] | | | PATHOLOGY | [address] | | | + + + + + | [facility] | [address] [facility] | [place] [address] | | | PATHOLOGY | [address] | | | + + + + + GLUCOSE, CSF (10/24/2007 12:54 PM PDT) + +-------+ + + + | Component | Value | Ref Range | Performed | Pathologist | | | | | At | Signature | + +-------+ + + + | GLUCOSE CSF | 67 | 40 - 70 mg/dL | [facility] | | | | | | DEPARTMENT | | | | | | OF | | | | | | PATHOLOGY | | + +-------+ + + + + + | Specimen | + + | Cerebrospinal fluid | + + + + + | Narrative | Performed At | + + + | WBC Phoned Readback. | [facility] | | | DEPARTMENT OF | | | PATHOLOGY | + + + + + + + + | Performing | Address | City/State/Zipcode | Phone Number | | Organization | | | | + + + + + | [facility] | [address] [facility] | [place] [address] | | | PATHOLOGY | [address] | | | + + + + + | [facility] OF | [address] [facility] | [place] [address] | | | PATHOLOGY | [address] | | | + + + + + CELL COUNT DIFF, CSF (10/24/2007 12:54 PM PDT) + +---------+ + + + | Component | Value | Ref Range | Performed | Pathologist | | | | | At | Signature | + +---------+ + + + | CSF WBC | 370 (*) | <6 /cu mm | [facility] | | | | | | DEPARTMENT | | | | | | OF | | | | | | PATHOLOGY | | + +---------+ + + + | CSF RBC | [address] | /cu mm | [facility] | | | | | | DEPARTMENT | | | | | | OF | | | | | | PATHOLOGY | | + +---------+ + + + | DIFFERENTIA | 20 | | [facility] | | | L CSF | | | DEPARTMENT | | | | | | OF | | | | | | PATHOLOGY | | + +---------+ + + + | NEUTROPHIL( | 95 (H) | <7 % | [facility] | | | CSF) | | | DEPARTMENT | | | | | | OF | | | | | | PATHOLOGY | | + +---------+ + + + | LYMPHOCYTES | 5 (L) | 40 - 80 % | [facility] | | | (CSF) | | | DEPARTMENT | | | | | | OF | | | | | | PATHOLOGY | | + +---------+ + + + + + | Specimen | + + | Cerebrospinal fluid | + + + + + | Narrative | Performed At | + + + | WBC Phoned Readback. | [facility] | | | DEPARTMENT OF | | | PATHOLOGY | + + + + + + + + | Performing | Address | City/State/Zipcode | Phone Number | | Organization | | | | + + + + + | [facility] DE[facility]MENT OF | [address] | [place] [address] | | | PATHOLOGY | [address] | | | + + + + + | [facility] DEPARTMENT OF | [address] | [place] [address] | | | PATHOLOGY | [address] | | | + + + + + CBC ONLY (10/24/2007 12:00 PM PDT) + +---------+ + + + | Component | Value | Ref Range | Performed | Pathologist | | | | | At | Signature | + +---------+ + + + | WHITE CELL | Dup req | 4.4 - 11.0 K/cu | [facility] | | | COUNT | | mm | DEPARTMENT | | | | | | OF | | | | | | PATHOLOGY | | + +---------+ + + + | RED CELL | Dup req | 4.00 - 5.20 | [facility] | | | COUNT | | M/cu mm | DEPARTMENT | | | | | | OF | | | | | | PATHOLOGY | | + +---------+ + + + | HEMOGLOBIN | Dup req | 12.0 - 16.0 | [facility] | | | | | g/dL | DEPARTMENT | | | | | | OF | | | | | | PATHOLOGY | | + +---------+ + + + | HEMATOCRIT | Dup req | 36.0 - 46.0 % | [facility] | | | | | | DEPARTMENT | | | | | | OF | | | | | | PATHOLOGY | | + +---------+ + + + | MCV | Dup req | 80.0 - 96.0 fL | [facility] | | | | | | DEPARTMENT | | | | | | OF | | | | | | PATHOLOGY | | + +---------+ + + + | MCHC | Dup req | 33.4 - 35.5 | [facility] | | | | | g/dL | DEPARTMENT | | | | | | OF | | | | | | PATHOLOGY | | + +---------+ + + + | RDW | Dup req | 11.5 - 15.0 % | [facility] | | | | | | DEPARTMENT | | | | | | OF | | | | | | PATHOLOGY | | + +---------+ + + + | PLATELET | Dup req | 150 - 400 K/cu | [facility] [...] + + + + + | [facility] DEPARTMENT OF | [address] | [place] [address] | | | PATHOLOGY | [address] | | | + + + + + | [facility] DEPARTMENT OF | [address] | [place] [address] | | | PATHOLOGY | [address] | | | + + + + + X-RAY ABD LTD FEEDING TUBE EVAL (10/24/2007 11:57 AM PDT) + + + + + + | Component | Value | Ref Range | Performed | Pathologist | | | | | At | Signature | + + + + + + | ABD LTD | Portable abdomen for | | | | | FEEDING | feeding tube | | | | | TUBE EVAL | placement.Comparison | | | | | | yesterday.Feeding tube | | | | | | remains coiled in | | | | | | stomach. Visualized | | | | | | bowel gas patternis | | | | | | within normal limits. | | | | | | Improving pulmonary | | | | | | edema with | | | | | | persistentbibasilar | | | | | | atelectasis and layering | | | | | | effusions.IN | | | | | | pression:1. Feeding | | | | | | tube coiled in mid | | | | | | stomachI have personally | | | | | | viewed this | | | | | | procedure/exam and | | | | | | reviewed this | | | | | | report.STATUS FINAL / | | | | | | Dr. SANGEETHA CAMPBELL | | | | + + + + + + + + | Specimen | + + | | + + + +---------+ + + | Performing | Address | City/State/Zipcode | Phone Number | | Organization | | | | + +---------+ + + | [facility] | | | | | RADIOLOGY | | | | + +---------+ + + RESP CARE THERAPY (10/24/2007 11:31 AM PDT) + + + + + + | Component | Value | Ref Range | Performed | Pathologist | | | | | At | Signature | + + + + + + | RESPIRATORY | Pain Assessment:Patients | | [facility] | | | CARE | pain assessed and was a | | RESPIRATORY | | | | 0 on a scale of | | THERAPY | | | | 0-10.Interventions:Medic | | | | | | ation given via SVN with | | | | | | Racemic Epinephrine 13 | | | | | | mg Medication given via | | | | | | inhaler with Combivent 4 | | | | | | puffs . Total combined | | | | | | puffsgiven: 4 | | | | | | puffs.Assessment:Breath | | | | | | Sounds: clear | | | | | | .Cough/Sputum: Patient | | | | | | had a productive cough. | | | | | | Secretions | | | | | | obtained:secretions | | | | | | swallowed.Outcome after | | | | | | therapy: Patient's | | | | | | breath sounds improved | | | | | | after therapy.Treatment | | | | | | Plan:No changes in | | | | | | therapy are | | | | | | indicated.Electronically | | | | | | Signed by: Karyn | | | | | | Angela, | | | | + + + + + + + + | Specimen | + + | | + + + + + | Narrative | Performed At | + + + | Ordered by an unspecified provider. | [facility] | | | RESPIRATORY | | | THERAPY | + + + + + + + + | Performing | Address | City/State/Zipcode | Phone Number | | Organization | | | | + + + + + | [facility] RESPIRATORY | [address] | [place], [place] | | | THERAPY | [facility] | [address] | | + + + + + | [facility] RES[facility] | [address] | [place], [place] | | | THERAPY | [facility] | [address] | | + + + + + SAL RAHMAN ONLY (10/24/2007 11:01 AM PDT) + + + + + + | Component | Value | Ref Range | Performed | Pathologist | | | | | At | Signature | + + + + + + | COLOR(UR) | Straw | | [facility] | | | | [...] + + + + | KETONES | 15 | mg/dL | [facility] | | | | | | DEPARTMENT | | | | | | OF | | | | | | PATHOLOGY | | + + + + + + | SPECIFIC | 1.015 | 1.005 - 1.030 | [facility] | | | GRAVITY | | | DEPARTMENT | | | | | | OF | | | | | | PATHOLOGY | | + + + + + + | BLOOD | Trace | | [facility] | | | | | | DEPARTMENT | | | | | | OF | | | | | | PATHOLOGY | | + + + + + + | PH(UR) | 7.5 | 5.0 - 8.0 | [facility] | [...] + + + + | UROBILINOGE | 1.0 | 0 - 0.2 LARRY | [facility] | | | N | | UNITS | DEPARTMENT | | | | | | OF | | | | | | PATHOLOGY | | + + + + + + | NITRITES | Negative | Negative | [facility] | [...] DEPARTMENT OF | [id number] | [place] [address] | | | PATHOLOGY | [address] | | | + + + + + | [facility] DEPARTMENT OF | [address] | [place], [place] [address] | | | PATHOLOGY | [address] | | | + + + + + CBC ONLY (10/24/2007 11:00 AM PDT) + + + + + + | Component | Value | Ref Range | Performed | Pathologist | | | | | At | Signature | + + + + + + | WHITE CELL | 17.5 (H) | 4.4 - 11.0 K/cu | [facility] | | | COUNT | | mm | DEPARTMENT | | | | | | OF | | | | | | PATHOLOGY | | + + + + + + | RED CELL | 2.91 (L) | 4.00 - 5.20 | [facility] | | | COUNT | | M/cu mm | DEPARTMENT | | | | | | OF | | | | | | PATHOLOGY | | + + + + + + | HEMOGLOBIN | 9.5 (L) | 12.0 - 16.0 | [facility] | | | | | g/dL | DEPARTMENT | | | | | | OF | | | | | | PATHOLOGY | | + + + + + + | HEMATOCRIT | 27.1 (L) | 36.0 - 46.0 % | [...] + + + + | MCHC | 35.0 | 33.4 - 35.5 | [facility] | | | | | g/dL | DEPARTMENT | | | | | | OF | | | | | | PATHOLOGY | | + + + + + + | RDW | 13.9 | 11.5 - 15.0 % | [facility] | | | | | | DEPARTMENT | | | | | | OF | | | | | | PATHOLOGY | | + + + + + + | PLATELET | 177 | 150 - 400 K/cu | [facility] [...] + | [facility] DE[facility]MENT [facility] | [address] [facility] | [place] [address] | | | PATHOLOGY | [address] | | | + + + + + | [facility] | [address] [facility] | [place] [address] | | | PATHOLOGY | [address] | | | + + + + + SODIUM, PLASMA (10/24/2007 8:50 AM PDT) + +---------+ + + + | Component | Value | Ref Range | Performed | Pathologist | | | | | At | Signature | + +---------+ + + + | SODIUM, | 151 (H) | 134 - 143 | [facility] | | | PLASMA | | mmol/L | DEPARTMENT | | | (LAB) | | | OF | | | | | | PATHOLOGY | | + +---------+ + + + + + | Specimen | + + | | + + + + + | Narrative | Performed At | + + + | New Reference ranges effective 07 for: Sodium, | [facility] | | Potassium, Chloride,Total CO2, Calcium | DEPARTMENT OF | | | PATHOLOGY | + + + + + + + + | Performing | Address | City/State/Zipcode | Phone Number | | Organization | | | | + + + + + | [facility] | [address] [facility] | [place] [address] | | | PATHOLOGY | [address] | | | + + + + + | [facility] | [address] [facility] | [place] [address] | | | PATHOLOGY | [address] | | | + + + + + POTASSIUM, PLASMA (10/24/2007 8:50 AM PDT) + +---------+ + + + | Component | Value | Ref Range | Performed | Pathologist | | | | | At | Signature | + +---------+ + + + | POTASSIUM, | 2.9 (L) | 3.4 - 5.0 | [facility] | | | PLASMA | | mmol/L | DEPARTMENT | | | (LAB) | | | OF | | | | | | PATHOLOGY | | + +---------+ + + + + + | Specimen | + + | Blood - Blood | + + + + + | Narrative | Performed At | + + + | New Reference ranges effective 07 for: Sodium, | [facility] | | Potassium, Chloride,Total CO2, Calcium | DEPARTMENT OF | | | PATHOLOGY | + + + + + + + + | Performing | Address | City/State/Zipcode | Phone Number | | Organization | | | | + + + + + | [facility] | [address] | [place] [address] | | | PATHOLOGY | [address] | | | + + + + + | [facility] | [address] | [place] [address] | | | PATHOLOGY | [address] | | | + + + + + SODIUM, PLASMA (10/24/2007 8:50 AM PDT) + + + + + + | Component | Value | Ref Range | Performed | Pathologist | | | | | At | Signature | + + + + + + | SODIUM, | Combined. | 134 - 143 | [facility] | | | PLASMA | | mmol/L | DEPARTMENT | | | (LAB) | | | OF | | | | | | PATHOLOGY | | + + + + + + + + | Specimen | + + | Blood - Blood | + + + + + | Narrative | Performed At | + + + | New Reference ranges effective 07 for: Sodium, | [facility] | | Potassium, Chloride,Total CO2, Calcium Combined with request same | DEPARTMENT OF | | date/time. | PATHOLOGY | + + + + + + + + | Performing | Address | City/State/Zipcode | Phone Number | | Organization | | | | + + + + + | [facility] DEPARTMENT OF | [address] | [place] [address] | | | PATHOLOGY | [address] | | | + + + + + | [facility] DEPARTMENT OF | [address] | [place] [address] | | | PATHOLOGY | [address] | | | + + + + + RESP CARE THERAPY (10/24/2007 7:55 AM PDT) + + + + + + | Component | Value | Ref Range | Performed | Pathologist | | | | | At | Signature | + + + + + + | RESPIRATORY | Pain Assessment:Patients | | [facility] | | | CARE | pain assessed and was a | | RESPIRATORY | | | | 0 on a scale of | | THERAPY | | | | 0-10.Interventions:Medic | | | | | | ation given via SVN with | | | | | | Ipratropium [place] .5 | | | | | | mg / Albuterol 2.5 | | | | | | mgAssessment:Breath | | | | | | Sounds: wheeze | | | | | | .Cough/Sputum: Patient | | | | | | had a non-productive | | | | | | cough.Outcome after | | | | | | therapy: Patient's | | | | | | breath sounds improved | | | | | | after therapy.Treatment | | | | | | Plan:No changes in | | | | | | therapy are | | | | | | indicated.Nasal cannula | | | | | | at 5 LPM.Electronically | | | | | | Signed by: Karyn | | | | | | Angela, | | | | + + + + + + + + | Specimen | + + | | + + + + + | Narrative | Performed At | + + + | Ordered by an unspecified provider. | [facility] | | | RESPIRATORY | | | THERAPY | + + + + + + + + | Performing | Address | City/State/Zipcode | Phone Number | | Organization | | | | + + + + + | [facility] | [address] | [place], [place] | | | THERAPY | [address] | [address] | | + + + + + | [facility] | [address] | [place], [place] | | | THERAPY | [address] | [address] | | + + + + + PRODUCT- RED CELLS LEUKOREDUCED (10/24/2007 6:54 AM PDT) + + + + + + | Component | Value | Ref Range | Performed | Pathologist | | | | | At | Signature | + + + + + + | PRODUCT | -1 RED BLOOD | | [facility] | | | DESCRIPTION | CELLS,ADENINE-SALINE | | DEPARTMENT | | | | ADDED,LEUKOCYTES REDUCED | | OF | | | | IRRADIATED | | PATHOLOGY | | + + + + + + | PRODUCT | [id number] | | [facility] | | | UNIT # | | | DEPARTMENT | | | [...] | | | UNIT | | | DEPARTMENT | | | [...] | + + + + + | [facility] | [address] [place] [address] | [place] [address] | | | PATHOLOGY | [address] | | | + + + + + | [facility] | [address] [place] [address] | [place] [address] | | | PATHOLOGY | [address] | | | + + + + + TYPE AND SCREEN (10/24/2007 6:54 AM PDT) + + + + + [...] | + + + + + | [facility] | [address] [facility] | [place] [address] | | | PATHOLOGY | [address] | | | + + + + + | [facility] | [address] [place] [address] | [place] [address] | | | PATHOLOGY | [address] | | | + + + + + PRODUCT- RED CELLS LEUKOREDUCED (10/24/2007 6:39 AM PDT) + + + + + + | Component | Value | Ref Range | Performed | Pathologist | | | | | At | Signature | + + + + + + | PRODUCT | -1 RED BLOOD | | [facility] | | | DESCRIPTION | CELLS,ADENINE-SALINE | | DEPARTMENT | | | | ADDED,LEUKOCYTES REDUCED | | OF | | | | | | PATHOLOGY | | + + + + + + | PRODUCT | [id number] | | [facility] | | | UNIT # | | | DEPARTMENT | | | [...] + + + | STATUS OF | Returned to Blood Bank | | [facility] | | | UNIT | | | DEPARTMENT | | | [...] DEPARTMENT OF | [address] | [place] [address] | | | PATHOLOGY | [address] | | | + + + + + | [facility] DEPARTMENT | [address] | [place] [address] | | | PATHOLOGY | [address] | | | + + + + + POTASSIUM, WHOLE BLOOD (10/24/2007 5:24 AM PDT) + + + + + + | Component | Value | Ref Range | Performed | Pathologist | | | | | At | Signature | + + + + + + | POTASSIUM,W | 2.4 (*)Comment: New | 3.4 - 5.0 | [facility] | | | HOLE BLD | reference range | mmol/L | DEPARTMENT | | | | effective 08/10/07. | | OF | | | | | | PATHOLOGY | | + + + + + + + + | Specimen | + + | | + + + + + | Narrative | Performed At | + + + | KW Phoned Readback. | [facility] | | | DEPARTMENT OF | | | PATHOLOGY | + + + + + + + + | Performing | Address | City/State/Zipcode | Phone Number | | Organization | | | | + + + + + | [facility] DEPARTMENT OF | [address] | [place] [address] | | | PATHOLOGY | [address] | | | + + + + + | [facility] DEPARTMENT OF | [address] | [place] [address] | | | PATHOLOGY | [address] | | | + + + + + CO-OXIMETER PANEL, BLOOD (10/24/2007 5:24 AM PDT) + + + + + + | Component | Value | Ref Range | Performed | Pathologist | | | | | At | Signature | + + + + + + | SPECIMEN | Arterial | | [facility] | | | SOURCE | | | DEPARTMENT | | | | | | OF | | | | | | PATHOLOGY | | + + + + + + | TOTAL | 6.5 (*) | 12.0 - 16.0 | [facility] | | | HEMOGLOBIN | | g/dL | DEPARTMENT | | | | | | OF | | | | | | PATHOLOGY | | + + + + + + | OXYHEMOGLOB | 92.3 (L) | 94.0 - 100.0 % | [facility] | | | IN | | | DEPARTMENT | | | | | | OF | | | | | | PATHOLOGY | | + + + + + + | CARBOXYHEMO | 1.4Comment: | % | [facility] | | | GLOBIN | Non Smoker: | | DEPARTMENT | | | | <1.5% Smokers, | | OF | | | | 1-2 packs/day: | | PATHOLOGY | | | | 4-5% Smokers, | | | | | | >2 packs/day: | | | | | | 8-9% | | | | + + + + + + | CO-OX | 1.5 | <2.0 % | [facility] | | | METHEMOGLOB | | | DEPARTMENT | | | IN | | | OF | | | | | | PATHOLOGY | | + + + + + + | OXYGEN SAT, | 95.1 | 92.0 - 98.0 % | [facility] | | | TALON | | | DEPARTMENT | | | | | | OF | | | | | | PATHOLOGY | | + + + + + + | DEOXYHEMOGL | 4.8 | % | [facility] | | | OBIN | | | DEPARTMENT | | | | | | OF | | | | | | PATHOLOGY | | + + + + + + + + | Specimen | + + | | + + + + + | Narrative | Performed At | + + + | CO-Oximeter Panel Oxyhemoglobin Reference Range: for 0-18 | [facility] | | years not available. TOTAL HGB Phoned Readback. | DEPARTMENT OF | | | PATHOLOGY | + + + + + + + + | Performing | Address | City/State/Zipcode | Phone Number | | Organization | | | | + + + + + | [facility] DEPARTMENT OF | [address] [facility] | [place] [address] | | | PATHOLOGY | [address] | | | + + + + + | [facility] DEPARTMENT OF | [address] [facility] | [place] [address] | | | PATHOLOGY | [address] | | | + + + + + BLOOD GASES, ARTERIAL - LAB (10/24/2007 5:24 AM PDT) + + + + + + | Component | Value | Ref Range | Performed | Pathologist | | | | | At | Signature | + + + + + + | PAT TEMP | 37.4 | Degree C | [facility] | | | ARTERIAL | | | DEPARTMENT | | | | | | OF | | | | | | PATHOLOGY | | + + + + + + | FIO2 | .4 | | [facility] | | | ARTERIAL | | | DEPARTMENT | | | | | | OF | | | | | | PATHOLOGY | | + + + + + + | PH ARTERIAL | 7.47 (H) | 7.37 - 7.44 | [facility] | | | | | | DEPARTMENT | | | | | | OF | | | | | | PATHOLOGY | | + + + + + + | PCO2 | 29 (L) | 32 - 43 mmHg | [facility] | | | ARTERIAL | | | DEPARTMENT | | | | | | OF | | | | | | PATHOLOGY | | + + + + + + | PO2 | 72 | 72 - 104 mmHg | [facility] | | | ARTERIAL | | | DEPARTMENT | | | | | | OF | | | | | | PATHOLOGY | | + + + + + + | BASE EXCESS | -2.2 | | [facility] | | | ARTERIAL | | | DEPARTMENT | | | | | | OF | | | | | | PATHOLOGY | | + + + + + + | HCO3 | 21 | 21 - 27 mmol/L | [facility] | | | ARTERIAL | | | DEPARTMENT | | | | | | OF | | | | | | PATHOLOGY | | + + + + + + | TOTAL CO2 | 22 | 22 - 28 mmol/L | [facility] | | | ARTERIAL | | | DEPARTMENT | | | | | | OF | | | | | | PATHOLOGY | | + + + + + + | O2 SAT, | 95.1 | 92.0 - 98.0 % | [facility] | | | ARTERIAL | | | DEPARTMENT | | | | | | OF | | | | | | PATHOLOGY | | + + + + + + + + | Specimen | + + | Blood - A Line | + + + + + | Narrative | Performed At | + + + | Arterial Blood Gas | [facility] | | | DEPARTMENT OF | | | PATHOLOGY | + + + + + + + + | Performing | Address | City/State/Zipcode | Phone Number | | Organization | | | | + + + + + | [facility] | [address] | [place] [address] | | | PATHOLOGY | [address] | | | + + + + + | [facility] | [address] | [place] [address] | | | PATHOLOGY | [address] | | | + + + + + VASC LAB PORTABLE TRANSCRANIAL DOPPLER COMPLETE (10/24/2007 5:05 AM PDT) + + + + + + | Component | Value | Ref Range | Performed | Pathologist | | | | | At | Signature | + + + + + + | [facility] LAB | Med Rec No:[id number] | | | | | PORTABLE | Name: | | | | | TRANSCRANIA | GLORIA ADHIKARI | | | | | L DOPPLER | Birthday: 1950 | | | | | COMPLETE | Sex: F | | | | | | Alias:Patient Location: | | | | | | 7NSIStatus: Inpatient | | | | | | ActiveOrdering | | | | | | Physician: | | | | | | ACLANDOGAJalen,VTCDCPVL PORT | | | | | | TRANSCRANIAL DOP COMP | | | | | | completed on 10/24/2007 | | | | | | 6:40 AMAccession | | | | | | #[id number]:TRANSCRAN | | | | | | IAL DOPPLER STUDY: | | | | | | 10/24/2007 Dictated | | | | | | 10/24/2007INDICATION: | | | | | | Vasospasm.The duplex | | | | | | scanner was used to | | | | | | examine the ophthalmic, | | | | | | intracranial,internal | | | | | | carotid, middle | | | | | | cerebral, anterior | | | | | | cerebral, | | | | | | posteriorcerebral and | | | | | | intracranial vertebral | | | | | | arteries bilaterally. | | | | | | Thebasilar artery and | | | | | | the extracranial | | | | | | internal carotid artery | | | | | | were alsoexamined.All of | | | | | | the above-noted vessels | | | | | | were patent with flows | | | | | | in the | | | | | | expecteddirection.The | | | | | | maximum middle cerebral | | | | | | artery flow velocity on | | | | | | the right is 257cm/sec | | | | | | with a mean velocity of | | | | | | 166 cm/sec and a | | | | | | calculatedhemispheric | | | | | | ratio of 4.88. There | | | | | | is also a mean velocity | | | | | | of 147cm/sec present in | | | | | | the anterior cerebral | | | | | | artery on the right.On | | | | | | the left side, the | | | | | | maximum middle cerebral | | | | | | artery flow velocity | | | | | | is322 cm/sec with a mean | | | | | | velocity of 190 cm/sec | | | | | | and a | | | | | | calculatedhemispheric | | | | | | ratio of | | | | | | 5.3.IMPRESSION:IMPRESSIO | | | | | | N:An abnormal | | | | | | transcranial Doppler | | | | | | study suggestive of | | | | | | vasospasminvolving both | | | | | | the right and left | | | | | | middle cerebral | | | | | | arterydistributions. | | | | | | There may also be | | | | | | vasospasm involving the | | | | | | anteriorcerebral artery | | | | | | on the right.END | | | | | | IMPRESSION:END | | | | | | IMPRESSIONI have | | | | | | personally viewed this | | | | | | procedure/exam and | | | | | | reviewed this | | | | | | report.STATUS FINAL / | | | | | | Dr. KALIA ERIC | | | | | | L.STATUS PRELIMINARY - | | | | | | UNSIGNED / [place] | | | | + + + + + + + + | Specimen | + + | | + + + +---------+ + + | Performing | Address | City/State/Zipcode | Phone Number | | Organization | | | | + +---------+ + + | [facility] | | | | | RADIOLOGY | | | | + +---------+ + + VANCOMYCIN, TROUGH (10/24/2007 2:00 AM PDT) + + + + + [...] Blood | + + + + + | Narrative | Performed At | + + + | Combined with request same date/time. | [facility] | | | DEPARTMENT OF | | | PATHOLOGY | + + + + + + + + | Performing | Address | City/State/Zipcode | Phone Number | | Organization | | | | + + + + + | [facility] | [address] [facility] | [place] [address] | | | PATHOLOGY | [address] | | | + + + + + | [facility] DEPARTMENT | [address] [facility] | [place] [address] | | | PATHOLOGY | [address] | | | + + + + + X-RAY PORTABLE CHEST 1 VIEW (10/24/2007 12:51 AM PDT) + + + + + + | Component | Value | Ref Range | Performed | Pathologist | | | | | At | Signature | + + + + + + | X-RAY | Portable | | | | | PORTABLE | chest.Comparison | | | | | CHEST 1 | yesterday.Support | | | | | VIEW | equipment unchanged. | | | | | | No pneumothorax. | | | | | | Heart and | | | | | | mediastinalcontour is | | | | | | stable. Layering | | | | | | bilateral effusions, | | | | | | right greater thanleft | | | | | | with mild bibasilar | | | | | | atelectasis unchanged. | | | | | | No focal | | | | | | developingconsolidation. | | | | | | IMPRESSION:1. | | | | | | Persistent bibasilar | | | | | | atelectasis and layering | | | | | | effusions.I have | | | | | | personally viewed this | | | | | | procedure/exam and | | | | | | reviewed this | | | | | | report.STATUS FINAL / | | | | | | Dr. SANGEETHA CAMPBELL | | | | + + + + + + + + | Specimen | + + | | + + + +---------+ + + | Performing | Address | City/State/Zipcode | Phone Number | | Organization | | | | + +---------+ + + | [facility] DEPARTMENT OF | | | | | RADIOLOGY | | | | + +---------+ + + UA, SAL ONLY (10/24/2007 12:01 AM PDT) + + + + + [...] + + + + | SPECIFIC | 1.015 | 1.005 - 1.030 | [facility] | | | GRAVITY | | | DEPARTMENT | | | | | | OF | | | | | | PATHOLOGY | | + + + + + + | BLOOD | Small | | [facility] | | | | | | DEPARTMENT | | | | | | OF | | | | | | PATHOLOGY | | + + + + + + | PH(UR) | 8.0 | 5.0 - 8.0 | [facility] | [...] + + + + | NITRITES | Negative | Negative | [facility] | | | | | | DEPARTMENT | | | | | | OF | | | | | | PATHOLOGY | | + + + + + + | LEUKOCYTE | Trace | Negative | [facility] | | | [...] + + + + + | [facility] DEPARTMENT OF | [address] | [place] [address] | | | PATHOLOGY | [address] | | | + + + + + | [facility] DE[facility]MENT OF | [address] | [place] [address] | | | PATHOLOGY | [address] | | | + + + + + VANCOMYCIN, TROUGH (10/24/2007 12:01 AM PDT) + + + + + + | Component | Value | Ref Range | Performed | Pathologist | | | | | At | Signature | + + + + + + | VANCOMYCIN, | 18.2 (H) | 5.0 - 15.0 | [facility] | [...] | + + + + + | [facility] | [address] [facility] | [place] [address] | | | PATHOLOGY | [address] | | | + + + + + | [facility] | [address] [facility] | [place] [address] | | | PATHOLOGY | [address] | | | + + + + + SPECIFIC GRAVITY, BODY FLUID (10/24/2007 12:01 AM PDT) + + + + + + | Component | Value | Ref Range | Performed | Pathologist | | | | | At | Signature | + + + + + + | SPEC GRAV | Not Recd | | [facility] | | | BODY FLUID | | | DEPARTMENT | | | | | | OF | | | | | | PATHOLOGY | | + + + + + + | TYPE OF | Not Recd | | [facility] | | | FLUID | | | DEPARTMENT | | | [...] DEPARTMENT OF | [address] | [place] [address] | | | PATHOLOGY | [address] | | | + + + + + | [facility] DEPARTMENT OF | [address] [facility] | [place] [address] | | | PATHOLOGY | [address] | | | + + + + + CBC ONLY (10/24/2007 12:01 AM PDT) + + + + + + | Component | Value | Ref Range | Performed | Pathologist | | | | | At | Signature | + + + + + + | WHITE CELL | 14.3 (H) | 4.4 - 11.0 K/cu | [facility] | | | COUNT | | mm | DEPARTMENT | | | | | | OF | | | | | | PATHOLOGY | | + + + + + + | RED CELL | 2.45 (L) | 4.00 - 5.20 | [facility] | | | COUNT | | M/cu mm | DEPARTMENT | | | | | | OF | | | | | | PATHOLOGY | | + + + + + + | HEMOGLOBIN | 7.9 (L) | 12.0 - 16.0 | [facility] | | | | | g/dL | DEPARTMENT | | | | | | OF | | | | | | PATHOLOGY | | + + + + + + | HEMATOCRIT | 23.1 (L) | 36.0 - 46.0 % | [...] + + + + | RDW | 13.8 | 11.5 - 15.0 % | [facility] | | | | | | DEPARTMENT | | | | | | OF | | | | | | PATHOLOGY | | + + + + + + | PLATELET | 176 | 150 - 400 K/cu | [facility] [...] + | [facility] DE[facility]MENT OF | [address] [facility] | [place] [address] | | | PATHOLOGY | [address] | | | + + + + + | [facility] DE[facility]MENT OF | [address] [facility] | [place] [address] | | | PATHOLOGY | [address] | | | + + + + + MAGNESIUM, PLASMA (10/24/2007 12:01 AM PDT) + +-------+ + + + | Component | Value | Ref Range | Performed | Pathologist | | | | | At | Signature | + +-------+ + + + | MAGNESIUM,P | 2.0 | 1.8 - 2.5 mg/dL | [facility] | | | LASMA | | | DEPARTMENT | | | | | | OF | | | | | | PATHOLOGY | | + +-------+ + + + + + | Specimen | + + | Blood - Blood | + + + + + | Narrative | Performed At | + + + | New Reference ranges effective 07 for: Sodium, | [facility] | | Potassium, Chloride,Total CO2, Calcium | DEPARTMENT OF | | | PATHOLOGY | + + + + + + + + | Performing | Address | City/State/Zipcode | Phone Number | | Organization | | | | + + + + + | [facility] | [address] [facility] | [place] [address] | | | PATHOLOGY | [address] | | | + + + + + | [facility] | [address] [facility] | [place] [address] | | | PATHOLOGY | [address] | | | + + + + + RENAL FUNCTION SET (NA,K,CL,CO2,BUN,CREAT,GLUC,CA,PHOS,ALB ) (10/24/2007 12:01 AM PDT) + +---------+ + + + | Component | Value | Ref Range | Performed | Pathologist | | | | | At | Signature | + +---------+ + + + | GLUCOSE, | 117 (H) | 60 - 99 [...] +---------+ + + + | PHOSPHORUS, | 3.9 | 2.4 - 4.7 mg/dL | [facility] | | | PLASMA | | | DEPARTMENT | | | (LAB) | | | OF | | | | | | PATHOLOGY | | + +---------+ + + + | SODIUM, | 153 (H) | 134 - 143 | [facility] | | | PLASMA | | mmol/L | DEPARTMENT | | | (LAB) | | | OF | | | | | | PATHOLOGY | | + +---------+ + + + | POTASSIUM, | 3.5 | 3.4 - 5.0 | [facility] | | | PLASMA | | mmol/L | DEPARTMENT | | | (LAB) | | | OF | | | | | | PATHOLOGY | | + +---------+ + + + | CHLORIDE, | 117 (H) | 97 - 108 mmol/L | [facility] | | | PLASMA | | | DEPARTMENT | | | (LAB) | | | OF | | | | | | PATHOLOGY | | + +---------+ + + + | TOTAL CO2, | 30 | 23 - 31 mmol/L | [facility] | | | PLASMA | | | DEPARTMENT | | | (LAB) | | | OF | | | | | | PATHOLOGY | | + +---------+ + + + + + | Specimen | + + | Blood - Blood | + + + + + | Narrative | Performed At | + + + | New Reference ranges effective 07 for: Sodium, | [facility] | | Potassium, Chloride,Total CO2, Calcium | DEPARTMENT OF | | | PATHOLOGY | + + + + + + + + | Performing | Address | City/State/Zipcode | Phone Number | | Organization | | | | + + + + + | [facility] DEPARTMENT OF | [address] [facility] | [place] [address] | | | PATHOLOGY | [address] | | | + + + + + | [facility] DEPARTMENT OF | [address] [facility] | [place] [address] | | | PATHOLOGY | [address] | | | + + + + + SPECIFIC GRAVITY, BODY FLUID (10/23/2007 10:05 PM PDT) + + + + + + | Component | Value | Ref Range | Performed | Pathologist | | | | | At | Signature | + + + + + + | SPEC GRAV | Not Recd | | [facility] | | | BODY FLUID | | | DEPARTMENT | | | | | | OF | | | | | | PATHOLOGY | | + + + + + + | TYPE OF | URN | | [facility] | | | FLUID | URN | | DEPARTMENT | | | | [...] | + + + + + | [facility] OF | [address] | [place] [address] | | | PATHOLOGY | [address] | | | + + + + + | [facility] OF | [address] | [place] [address] | | | PATHOLOGY | [address] | | | + + + + + SODIUM, PLASMA (10/23/2007 5:57 PM PDT) + +---------+ + + + | Component | Value | Ref Range | Performed | Pathologist | | | | | At | Signature | + +---------+ + + + | SODIUM, | 152 (H) | 134 - 143 | [facility] | | | PLASMA | | mmol/L | DEPARTMENT | | | (LAB) | | | OF | | | | | | PATHOLOGY | | + +---------+ + + + + + | Specimen | + + | | + + + + + | Narrative | Performed At | + + + | New Reference ranges effective 07 for: Sodium, | [facility] | | Potassium, Chloride,Total CO2, Calcium | DEPARTMENT OF | | | PATHOLOGY | + + + + + + + + | Performing | Address | City/State/Zipcode | Phone Number | | Organization | | | | + + + + + | [facility] DEPARTMENT OF | [address] [facility] | [place] [address] | | | PATHOLOGY | [address] | | | + + + + + | [facility] DEPARTMENT OF | [address] [facility] | [place] [address] | | | PATHOLOGY | [address] | | | + + + + + POTASSIUM, PLASMA (10/23/2007 5:57 PM PDT) + +---------+ + + + | Component | Value | Ref Range | Performed | Pathologist | | | | | At | Signature | + +---------+ + + + | POTASSIUM, | 3.2 (L) | 3.4 - 5.0 | [facility] | | | PLASMA | | mmol/L | DEPARTMENT | | | (LAB) | | | OF | | | | | | PATHOLOGY | | + +---------+ + + + + + | Specimen | + + | Blood - Blood | + + + + + | Narrative | Performed At | + + + | New Reference ranges effective 07 for: Sodium, | [facility] | | Potassium, Chloride,Total CO2, Calcium | DEPARTMENT OF | | | PATHOLOGY | + + + + + + + + | Performing | Address | City/State/Zipcode | Phone Number | | Organization | | | | + + + + + | [facility] DEPARTMENT OF | [address] | [place] [address] | | | PATHOLOGY | [address] | | | + + + + + | [facility] DEPARTMENT OF | [address] | [place] [address] | | | PATHOLOGY | [address] | | | + + + + + SODIUM, PLASMA (10/23/2007 5:57 PM PDT) + + + + + + | Component | Value | Ref Range | Performed | Pathologist | | | | | At | Signature | + + + + + + | SODIUM, | Combined. | 134 - 143 | [facility] | | | PLASMA | | mmol/L | DEPARTMENT | | | (LAB) | | | OF | | | | | | PATHOLOGY | | + + + + + + + + | Specimen | + + | Blood - Blood | + + + + + | Narrative | Performed At | + + + | New Reference ranges effective 07 for: Sodium, | [facility] | | Potassium, Chloride,Total CO2, Calcium Combined with request same | DEPARTMENT OF | | date/time. | PATHOLOGY | + + + + + + + + | Performing | Address | City/State/Zipcode | Phone Number | | Organization | | | | + + + + + | [facility] DEPARTMENT OF | [address] | [place] [address] | | | PATHOLOGY | [address] | | | + + + + + | [facility] DEPARTMENT OF | [address] | [place] [address] | | | PATHOLOGY | [address] | | | + + + + + SPECIFIC GRAVITY, BODY FLUID (10/23/2007 4:05 PM PDT) + + + + + + | Component | Value | Ref Range | Performed | Pathologist | | | | | At | Signature | + + + + + + | SPEC GRAV | Not Recd | | [facility] | | | BODY FLUID | | | DEPARTMENT | | | | | | OF | | | | | | PATHOLOGY | | + + + + + + | TYPE OF | URN | | [facility] | | | FLUID | URN | | DEPARTMENT | | | | [...] | + + + + + | [facility] OF | [facility] | [place] [address] | | | PATHOLOGY | [address] | | | + + + + + | [facility] DEPARTMENT OF | [address] | [place] [address] | | | PATHOLOGY | [address] | | | + + + + + POTASSIUM, PLASMA (10/23/2007 10:12 AM PDT) + +---------+ + + + | Component | Value | Ref Range | Performed | Pathologist | | | | | At | Signature | + +---------+ + + + | POTASSIUM, | 3.2 (L) | 3.4 - 5.0 | [facility] | | | PLASMA | | mmol/L | DEPARTMENT | | | (LAB) | | | OF | | | | | | PATHOLOGY | | + +---------+ + + + + + | Specimen | + + | | + + + + + | Narrative | Performed At | + + + | New Reference ranges effective 07 for: Sodium, | [facility] | | Potassium, Chloride,Total CO2, Calcium | DEPARTMENT OF | | | PATHOLOGY | + + + + + + + + | Performing | Address | City/State/Zipcode | Phone Number | | Organization | | | | + + + + + | [facility] DEPARTMENT OF | [address] | [place] [address] | | | PATHOLOGY | [address] | | | + + + + + | [facility] DEPARTMENT OF | [address] | [place] [address] | | | PATHOLOGY | [address] | | | + + + + + POTASSIUM, PLASMA (10/23/2007 10:12 AM PDT) + + + + + + | Component | Value | Ref Range | Performed | Pathologist | | | | | At | Signature | + + + + + + | POTASSIUM, | Combined. | 3.4 - 5.0 | [facility] | | | PLASMA | | mmol/L | DEPARTMENT | | | (LAB) | | | OF | | | | | | PATHOLOGY | | + + + + + + + + | Specimen | + + | Blood - Blood | + + + + + | Narrative | Performed At | + + + | New Reference ranges effective 07 for: Sodium, | [facility] | | Potassium, Chloride,Total CO2, Calcium Combined with request same | DEPARTMENT OF | | date/time. | PATHOLOGY | + + + + + + + + | Performing | Address | City/State/Zipcode | Phone Number | | Organization | | | | + + + + + | [facility]MENT [facility] | [address] | [place] [address] | | | PATHOLOGY | [address] | | | + + + + + | [facility] DEPARTMENT OF | [address] | [place] [address] | | | PATHOLOGY | [address] | | | + + + + + SODIUM, PLASMA (10/23/2007 10:12 AM PDT) + +---------+ + + + | Component | Value | Ref Range | Performed | Pathologist | | | | | At | Signature | + +---------+ + + + | SODIUM, | 151 (H) | 134 - 143 | [facility] | | | PLASMA | | mmol/L | DEPARTMENT | | | (LAB) | | | OF | | | | | | PATHOLOGY | | + +---------+ + + + + + | Specimen | + + | Blood - Blood | + + + + + | Narrative | Performed At | + + + | New Reference ranges effective 07 for: Sodium, | [facility] | | Potassium, Chloride,Total CO2, Calcium | DEPARTMENT OF | | | PATHOLOGY | + + + + + + + + | Performing | Address | City/State/Zipcode | Phone Number | | Organization | | | | + + + + + | [facility] | [address] | [place] [address] | | | PATHOLOGY | [address] | | | + + + + + | [facility] DEPARTMENT | [address] | [place] [address] | | | PATHOLOGY | [address] | | | + + + + + C. DIFFICILE TOXINS A+B, STOOL (10/23/2007 10:08 AM PDT) + + + + + + | Component | Value | Ref Range | Performed | Pathologist | | | | | At | Signature | + + + + + + | STOOL DATE | 10/23/07 | | | | | COLLECTION | | | | | + + + + + + | STOOL TIME | 10:08 | | | | | COLLECTION | | | | | + + + + + + | C. | NegativeComment: | | | | | DIFFICILE | Reference Range: | | | | | TOXIN | Negative Test | | | | | | performed by [facility] | | | | | | [facility] | | | | | | Laboratory. | | | | + + + + + + + + | Specimen | + + | Stool - Stool | + + + + + + + | Performing | Address | City/State/Zipcode | Phone Number | | Organization | | | | + + + + + | [facility] | [address] | [place] [address] | | | LAB-MICRO | | | | + + + + + SPECIFIC GRAVITY, BODY FLUID (10/23/2007 10:05 AM PDT) + + + + + + | Component | Value | Ref Range | Performed | Pathologist | | | | | At | Signature | + + + + + + | SPEC GRAV | Not Recd | | [facility] | | | BODY FLUID | | | DEPARTMENT | | | | | | OF | | | | | | PATHOLOGY | | + + + + + + | TYPE OF | URN | | [facility] | | | FLUID | URN | | DEPARTMENT | | | | [...] | + + + + + | [facility] | [address] [place] [address] [address] | [place] [address] | | | PATHOLOGY | [address] | | | + + + + + | [facility] | [address] [place] [address] [address] | [place] [address] | | | PATHOLOGY | [address] | | | + + + + + X-RAY PORTABLE CHEST 1 VIEW (10/23/2007 9:49 AM PDT) + + + + + + | Component | Value | Ref Range | Performed | Pathologist | | | | | At | Signature | + + + + + + | X-RAY | AP CHEST: 10/23/2007 | | | | | PORTABLE | Dictated | | | | | CHEST 1 | 10/23/2007COMPARISON: | | | | | VIEW | 10/22/2007FINDINGS: | | | | | | Bilateral pleural | | | | | | effusions and bibasilar | | | | | | passiveatelectasis are | | | | | | again noted. Minimal | | | | | | ground-glass opacities | | | | | | andbronchial cuffing are | | | | | | observed within the | | | | | | lungs bilaterally.The | | | | | | support equipment is | | | | | | unchanged.IMPRESSION:1. | | | | | | Bilateral moderate | | | | | | pleural effusions and | | | | | | passive atelectasis.2. | | | | | | Mild hydrostatic | | | | | | pulmonary edema.END | | | | | | IMPRESSIONI have | | | | | | personally viewed this | | | | | | procedure/exam and | | | | | | reviewed this | | | | | | report.STATUS FINAL / | | | | | | Dr. MONTELONGO | | | | | | LYNDON PRELIMINARY | | | | | | - UNSIGNED / | | | | | | JAYDA ROSARIO | | | | + + + + + + + + | Specimen | + + | | + + + +---------+ + + | Performing | Address | City/State/Zipcode | Phone Number | | Organization | | | | + +---------+ + + | [facility] DEPARTMENT OF | | | | | RADIOLOGY | | | | + +---------+ + + X-RAY ABD LTD FEEDING TUBE EVAL (10/23/2007 8:12 AM PDT) + + + + + + | Component | Value | Ref Range | Performed | Pathologist | | | | | At | Signature | + + + + + + | ABD LTD | EXAM: AP view of lower | | | | | FEEDING | chest and upper abdomen | | | | | TUBE EVAL | for feeding | | | | | | tube.COMPARISON: | | | | | | NoneFINDINGS: | | | | | | Feeding tube has been | | | | | | placed called back on | | | | | | itself withtip | | | | | | projecting in the | | | | | | gastric fundus. | | | | | | Evaluation of lungs | | | | | | limited astechnique was | | | | | | tailored for feeding | | | | | | tube | | | | | | placement.IMPRESSION:Fee | | | | | | ding tube coiled back on | | | | | | itself with tip | | | | | | projecting in the | | | | | | gastricfundus.I have | | | | | | personally viewed this | | | | | | procedure/exam and | | | | | | reviewed this | | | | | | report.STATUS FINAL / | | | | | | Dr. JAYDA ROSARIO | | | | + + + + + + + + | Specimen | + + | | + + + +---------+ + + | Performing | Address | City/State/Zipcode | Phone Number | | Organization | | | | + +---------+ + + | [facility] DEPARTMENT OF | | | | | RADIOLOGY | | | | + +---------+ + + VASC LAB PORTABLE TRANSCRANIAL DOPPLER COMPLETE (10/23/2007 8:12 AM PDT) + + + + + + | Component | Value | Ref Range | Performed | Pathologist | | | | | At | Signature | + + + + + + | VASC LAB | Med Rec No:[id number] | | | | | PORTABLE | Name: | | | | | TRANSCRANIA | GLORIA ADHIKARI | | | | | L DOPPLER | Birthday: 1950 | | | | | COMPLETE | Sex: F | | | | | | Alias:Patient Location: | | | | | | 7NSIStatus: Inpatient | | | | | | ActiveOrdering | | | | | | Physician: | | | | | | ACLANDOGAN,VTCDCPVL PORT | | | | | | TRANSCRANIAL DOP COMP | | | | | | completed on 10/23/2007 | | | | | | 2:24 PMAccession | | | | | | #[id number]:TRANSCRAN | | | | | | IAL DOPPLER STUDY: | | | | | | 10/23/2007 Dictated | | | | | | 10/24/2007INDICATION: | | | | | | Vasospasm.The blood | | | | | | pressure at the time of | | | | | | this examination is | | | | | | 127/66 mmHg.The duplex | | | | | | scanner was used to | | | | | | examine the ophthalmic, | | | | | | intracranial,internal | | | | | | carotid, middle | | | | | | cerebral, anterior | | | | | | cerebral, | | | | | | posteriorcerebral and | | | | | | intracranial vertebral | | | | | | arteries bilaterally. | | | | | | Thebasilar artery and | | | | | | the extracranial | | | | | | internal carotid | | | | | | arteries werealso | | | | | | examined.All of the | | | | | | above-noted vessels were | | | | | | patent with flows in | | | | | | the | | | | | | expecteddirection.The | | | | | | maximum middle cerebral | | | | | | artery flow velocity on | | | | | | the right is 325cm/sec | | | | | | with a mean velocity of | | | | | | 212 cm/sec and a | | | | | | calculatedhemispheric | | | | | | ratio of 5.89. There | | | | | | are also mean flow | | | | | | velocities of151 cm/sec | | | | | | in the anterior cerebral | | | | | | artery on the right and | | | | | | 136cm/sec in the | | | | | | posterior cerebral | | | | | | artery on the right.On | | | | | | the left side, the | | | | | | maximum middle cerebral | | | | | | artery flow velocity | | | | | | is225 cm/sec with a mean | | | | | | velocity of 139 cm/sec | | | | | | and a | | | | | | calculatedhemispheric | | | | | | ratio of | | | | | | 3.97.IMPRESSION:IMPRESSI | | | | | | ON:An abnormal | | | | | | transcranial Doppler | | | | | | study suggestive of | | | | | | vasospasminvolving both | | | | | | the right and left | | | | | | middle cerebral | | | | | | arterydistributions. | | | | | | There may also be | | | | | | vasospasm in the | | | | | | anterior cerebraland | | | | | | posterior cerebral | | | | | | distributions of the | | | | | | right hemisphere.END | | | | | | IMPRESSION:END | | | | | | IMPRESSIONI have | | | | | | personally viewed this | | | | | | procedure/exam and | | | | | | reviewed this | | | | | | report.STATUS FINAL / | | | | | | Dr. KALIA ERIC | | | | | | L.STATUS PRELIMINARY - | | | | | | UNSIGNED / O'Barrie Rula | | | | + + + + + + + + | Specimen | + + | | + + + +---------+ + + | Performing | Address | City/State/Zipcode | Phone Number | | Organization | | | | + +---------+ + + | [facility] DEPARTMENT OF | | | | | RADIOLOGY | | | | + +---------+ + + BLOOD GASES, ARTERIAL - LAB (10/23/2007 1:16 AM PDT) + + + + + + | Component | Value | Ref Range | Performed | Pathologist | | | | | At | Signature | + + + + + + | PAT TEMP | NG | Degree C | [facility] | | | ARTERIAL | | | DEPARTMENT | | | | | | OF | | | | | | PATHOLOGY | | + + + + + + | FIO2 | NG | | [facility] | | | ARTERIAL | | | DEPARTMENT | | | | | | OF | | | | | | PATHOLOGY | | + + + + + + | PH ARTERIAL | 7.45 (H) | 7.37 - 7.44 | [facility] | | | | | | DEPARTMENT | | | | | | OF | | | | | | PATHOLOGY | | + + + + + + | PCO2 | 40 | 32 - 43 mmHg | [facility] | | | ARTERIAL | | | DEPARTMENT | | | | | | OF | | | | | | PATHOLOGY | | + + + + + + | PO2 | 113 (H) | 72 - 104 mmHg | [facility] | | | ARTERIAL | | | DEPARTMENT | | | | | | OF | | | | | | PATHOLOGY | | + + + + + + | BASE EXCESS | 3.2 | | [facility] | | | ARTERIAL | | | DEPARTMENT | | | | | | OF | | | | | | PATHOLOGY | | + + + + + + | HCO3 | 27 | 21 - 27 mmol/L | [facility] | | | ARTERIAL | | | DEPARTMENT | | | | | | OF | | | | | | PATHOLOGY | | + + + + + + | TOTAL CO2 | 28 | 22 - 28 mmol/L | [facility] | | | ARTERIAL | | | DEPARTMENT | | | | | | OF | | | | | | PATHOLOGY | | + + + + + + | O2 SAT, | 98.7 (H) | 92.0 - 98.0 % | [facility] | | | ARTERIAL | | | DEPARTMENT | | | | | | OF | | | | | | PATHOLOGY | | + + + + + + + + | Specimen | + + | Blood - A Line | + + + + + | Narrative | Performed At | + + + | Arterial Blood Gas | [facility] | | | DEPARTMENT OF | | | PATHOLOGY | + + + + + + + + | Performing | Address | City/State/Zipcode | Phone Number | | Organization | | | | + + + + + | [facility] DEPARTMENT OF | [facility] | [place] [address] | | | PATHOLOGY | [address] | | | + + + + + | [facility] DEPARTMENT OF | [facility] | [place] [address] | | | PATHOLOGY | [address] | | | + + + + + CBC ONLY (10/23/2007 1:05 AM PDT) + + + + + + | Component | Value | Ref Range | Performed | Pathologist | | | | | At | Signature | + + + + + + | WHITE CELL | 14.0 (H) | 4.4 - 11.0 K/cu | [facility] | | | COUNT | | mm | DEPARTMENT | | | | | | OF | | | | | | PATHOLOGY | | + + + + + + | RED CELL | 2.71 (L) | 4.00 - 5.20 | [facility] | | | COUNT | | M/cu mm | DEPARTMENT | | | | | | OF | | | | | | PATHOLOGY | | + + + + + + | HEMOGLOBIN | 8.7 (L) | 12.0 - 16.0 | [facility] | | | | | g/dL | DEPARTMENT | | | | | | OF | | | | | | PATHOLOGY | | + + + + + + | HEMATOCRIT | 25.5 (L) | 36.0 - 46.0 % | [facility] | | | | | | DEPARTMENT | | | | | | OF | | | | | | PATHOLOGY | | + + + + + + | MCV | 94.0 | 80.0 - 96.0 fL | [facility] [...] + + + + | RDW | 13.9 | 11.5 - 15.0 % | [facility] | | | | | | DEPARTMENT | | | | | | OF | | | | | | PATHOLOGY | | + + + + + + | PLATELET | 204 | 150 - 400 K/cu | [facility] [...] DEPARTMENT OF | [address] | [place], [place] [address] | | | PATHOLOGY | [address] | | | + + + + + | [facility] DEPARTMENT OF | [address] | [place] [address] | | | PATHOLOGY | [address] | | | + + + + + MAGNESIUM, PLASMA (10/23/2007 1:05 AM PDT) + +-------+ + + + | Component | Value | Ref Range | Performed | Pathologist | | | | | At | Signature | + +-------+ + + + | MAGNESIUM,P | 2.0 | 1.8 - 2.5 mg/dL | [facility] | | | LASMA | | | DEPARTMENT | | | | | | OF | | | | | | PATHOLOGY | | + +-------+ + + + + + | Specimen | + + | Blood - Blood | + + + + + | Narrative | Performed At | + + + | New Reference ranges effective 07 for: Sodium, | [facility] | | Potassium, Chloride,Total CO2, Calcium | DEPARTMENT OF | | | PATHOLOGY | + + + + + + + + | Performing | Address | City/State/Zipcode | Phone Number | | Organization | | | | + + + + + | [facility] DEPARTMENT OF | [address] | [place] [address] | | | PATHOLOGY | [address] | | | + + + + + | [facility] | [address] | [place] [address] | | | PATHOLOGY | [address] | | | + + + + + RENAL FUNCTION SET (NA,K,CL,CO2,BUN,CREAT,GLUC,CA,PHOS,ALB ) (10/23/2007 1:05 AM PDT) + +---------+ + + + | Component | Value | Ref Range | Performed | Pathologist | | | | | At | Signature | + +---------+ + + + | GLUCOSE, | 137 (H) | 60 - 99 [...] +---------+ + + + | CREATININE | 0.91 | 0.60 - 1.10 | [facility] | | | PLASMA | | mg/dL | DEPARTMENT | | | (LAB) | | | OF | | | | | | PATHOLOGY | | + +---------+ + + + | ALBUMIN, | 2.8 (L) | 3.5 - 4.7 g/dL | [...] +---------+ + + + | PHOSPHORUS, | 4.3 | 2.4 - 4.7 mg/dL | [facility] | | | PLASMA | | | DEPARTMENT | | | (LAB) | | | OF | | | | | | PATHOLOGY | | + +---------+ + + + | SODIUM, | 153 (H) | 134 - 143 | [facility] | | | PLASMA | | mmol/L | DEPARTMENT | | | (LAB) | | | OF | | | | | | PATHOLOGY | | + +---------+ + + + | POTASSIUM, | 3.5 | 3.4 - 5.0 | [facility] | | | PLASMA | | mmol/L | DEPARTMENT | | | (LAB) | | | OF | | | | | | PATHOLOGY | | + +---------+ + + + | CHLORIDE, | 116 (H) | 97 - 108 mmol/L | [...] Blood | + + + + + | Narrative | Performed At | + + + | New Reference ranges effective 07 for: Sodium, | [facility] | | Potassium, Chloride,Total CO2, Calcium | DEPARTMENT OF | | | PATHOLOGY | + + + + + + + + | Performing | Address | City/State/Zipcode | Phone Number | | Organization | | | | + + + + + | [facility] | [facility] | [place] [address] | | | PATHOLOGY | [address] | | | + + + + + | [facility] | [address] [place] [address] | [place] [address] | | | PATHOLOGY | [address] | | | + + + + + SPECIFIC GRAVITY, BODY FLUID (10/23/2007 12:01 AM PDT) + + + + + + | Component | Value | Ref Range | Performed | Pathologist | | | | | At | Signature | + + + + + + | SPEC GRAV | Not Recd | | [facility] | | | BODY FLUID | | | DEPARTMENT | | | | | | OF | | | | | | PATHOLOGY | | + + + + + + | TYPE OF | URN | | [facility] | | | FLUID | URN | | DEPARTMENT | | | | [...] + + + + + | [facility] DEPARTMENT OF | [address] | [place] [address] | | | PATHOLOGY | [address] | | | + + + + + | [facility] DEPARTMENT OF | [address] | [place] [address] | | | PATHOLOGY | [address] | | | + + + + + SPECIFIC GRAVITY, BODY FLUID (10/22/2007 10:05 PM PDT) + + + + + + | Component | Value | Ref Range | Performed | Pathologist | | | | | At | Signature | + + + + + + | SPEC GRAV | Not Recd | | [facility] | | | BODY FLUID | | | DEPARTMENT | | | | | | OF | | | | | | PATHOLOGY | | + + + + + + | TYPE OF | URN | | [facility] | | | FLUID | URN | | DEPARTMENT | | | | [...] DEPARTMENT OF | [address] | [place] [address] | | | PATHOLOGY | [address] | | | + + + + + | [facility] DEPARTMENT OF | [address] | [place] [address] | | | PATHOLOGY | [address] | | | + + + + + VANCOMYCIN, TROUGH (10/22/2007 8:50 PM PDT) + +-------+ + + + | Component | Value | Ref Range | Performed | Pathologist | | | | | At | Signature | + +-------+ + + + | VANCOMYCIN, | 8.2 | 5.0 - 15.0 | [facility] | [...] + + + + + | [facility] DEPARTMENT OF | [address] | [place] [address] | | | PATHOLOGY | [address] | | | + + + + + | [facility] OF | [address] | [place] [address] | | | PATHOLOGY | [address] | | | + + + + + X-RAY PORTABLE CHEST 1 VIEW (10/22/2007 6:59 PM PDT) + + + + + + | Component | Value | Ref Range | Performed | Pathologist | | | | | At | Signature | + + + + + + | X-RAY | Exam: AP | | | | | PORTABLE | chestComparison: Earlier | | | | | CHEST 1 | same dayHistory: | | | | | VIEW | Evaluate lungsFindings: | | | | | | The endotracheal tube | | | | | | tip terminates 4.8 cm | | | | | | above thecarina. A | | | | | | nasogastric tube and can | | | | | | be seen extending below | | | | | | thediaphragm and | | | | | | coiling with its tip in | | | | | | the gastric fundus. | | | | | | The secondenteric | | | | | | feeding tube has been | | | | | | removed. Left | | | | | | subclavian | | | | | | venouscatheter is | | | | | | unchanged in position. | | | | | | Redemonstrated are | | | | | | bilateralpleural | | | | | | effusions and bilateral | | | | | | lower lobe atelectasis. | | | | | | There ourresolving | | | | | | ground glass opacities | | | | | | within both | | | | | | lungs.Impression:Bilater | | | | | | al pleural effusions and | | | | | | lower lobe | | | | | | atelectasis.Resolving | | | | | | pulmonary edema. Tubes | | | | | | and lines as aboveI | | | | | | have personally viewed | | | | | | this procedure/exam and | | | | | | reviewed this | | | | | | report.STATUS FINAL / | | | | | | Dr. JAYDA ROSARIO | | | | + + + [...] | | + +---------+ + + X-RAY ABD TUBE OR CATH EVAL (10/22/2007 6:47 PM PDT) + + + + + + | Component | Value | Ref Range | Performed | Pathologist | | | | | At | Signature | + + + + + + | ABD TUBE OR | Exam: AP | | | | | CATH EVAL | abdomenComparison: | | | | | W/O | NoneHistory: Evaluate | | | | | CONTRAST | Dobbhoff tubeFindings: | | | | | | Dobbhoff feeding tube | | | | | | extends below the level | | | | | | of diaphragmand coils in | | | | | | the gastric | | | | | | fundus.Evaluation of the | | | | | | lungs is suboptimal as | | | | | | current study is | | | | | | tailoredfor evaluation | | | | | | of Dobbhoff feeding | | | | | | tubeImpression:Dobbhoff | | | | | | feeding tube coils in | | | | | | the stomach with its tip | | | | | | lying in thefundus.I | | | | | | have personally viewed | | | | | | this procedure/exam and | | | | | | reviewed this | | | | | | report.STATUS FINAL / | | | | | | Dr. JAYDA ROSARIO | | | | + + + + + + + + | Specimen | + + | | + + + +---------+ + + | Performing | Address | City/State/Zipcode | Phone Number | | Organization | | | | + +---------+ + + | [facility] DEPARTMENT OF | | | | | RADIOLOGY | | | | + +---------+ + + BLOOD GASES, ARTERIAL - LAB (10/22/2007 6:34 PM PDT) + + + + + + | Component | Value | Ref Range | Performed | Pathologist | | | | | At | Signature | + + + + + + | PAT TEMP | 39 | Degree C | [facility] | | | ARTERIAL | | | DEPARTMENT | | | | | | OF | | | | | | PATHOLOGY | | + + + + + + | FIO2 | 100 | | [facility] | | | ARTERIAL | | | DEPARTMENT | | | | | | OF | | | | | | PATHOLOGY | | + + + + + + | PH ARTERIAL | 7.38 | 7.37 - 7.44 | [facility] | | | | | | DEPARTMENT | | | | | | OF | | | | | | PATHOLOGY | | + + + + + + | PCO2 | 47 (H) | 32 - 43 mmHg | [facility] | | | ARTERIAL | | | DEPARTMENT | | | | | | OF | | | | | | PATHOLOGY | | + + + + + + | PO2 | 58 (L) | 72 - 104 mmHg | [facility] | | | ARTERIAL | | | DEPARTMENT | | | | | | OF | | | | | | PATHOLOGY | | + + + + + + | BASE EXCESS | 2.7 | | [facility] | | | ARTERIAL | | | DEPARTMENT | | | | | | OF | | | | | | PATHOLOGY | | + + + + + + | HCO3 | 27 | 21 - 27 mmol/L | [facility] | | | ARTERIAL | | | DEPARTMENT | | | | | | OF | | | | | | PATHOLOGY | | + + + + + + | TOTAL CO2 | 28 | 22 - 28 mmol/L | [facility] | | | ARTERIAL | | | DEPARTMENT | | | | | | OF | | | | | | PATHOLOGY | | + + + + + + | O2 SAT, | 82.5 (L) | 92.0 - 98.0 % | [facility] | | | ARTERIAL | | | DEPARTMENT | | | | | | OF | | | | | | PATHOLOGY | | + + + + + + + + | Specimen | + + | Blood - A Line | + + + + + | Narrative | Performed At | + + + | Arterial Blood Gas | [facility] | | | DEPARTMENT OF | | | PATHOLOGY | + + + + + + + + | Performing | Address | City/State/Zipcode | Phone Number | | Organization | | | | + + + + + | [facility] DEPARTMENT OF | [address] | [place] [address] | | | PATHOLOGY | [address] | | | + + + + + | [facility] DEPARTMENT OF | [address] | [place] [address] | | | PATHOLOGY | [address] | | | + + + + + POTASSIUM, PLASMA (10/22/2007 6:09 PM PDT) + +-------+ + + + | Component | Value | Ref Range | Performed | Pathologist | | | | | At | Signature | + +-------+ + + + | POTASSIUM, | 3.4 | 3.4 - 5.0 | [facility] | | | PLASMA | | mmol/L | DEPARTMENT | | | (LAB) | | | OF | | | | | | PATHOLOGY | | + +-------+ + + + + + | Specimen | + + | | + + + + + | Narrative | Performed At | + + + | New Reference ranges effective 07 for: Sodium, | [facility] | | Potassium, Chloride,Total CO2, Calcium | DEPARTMENT OF | | | PATHOLOGY | + + + + + + + + | Performing | Address | City/State/Zipcode | Phone Number | | Organization | | | | + + + + + | [facility] DEPARTMENT OF | [address] | [place] [address] | | | PATHOLOGY | [address] | | | + + + + + | [facility] DEPARTMENT OF | [address] | [place] [address] | | | PATHOLOGY | [address] | | | + + + + + POTASSIUM, PLASMA (10/22/2007 6:09 PM PDT) + + + + + + | Component | Value | Ref Range | Performed | Pathologist | | | | | At | Signature | + + + + + + | POTASSIUM, | Combined. | 3.4 - 5.0 | [facility] | | | PLASMA | | mmol/L | DEPARTMENT | | | (LAB) | | | OF | | | | | | PATHOLOGY | | + + + + + + | POTASSIUM | Combined. | | [facility] | | | CMNT | | | DEPARTMENT | | | | | | OF | | | | | | PATHOLOGY | | + + + + + + + + | Specimen | + + | Blood - Blood | + + + + + | Narrative | Performed At | + + + | New Reference ranges effective 07 for: Sodium, | [facility] | | Potassium, Chloride,Total CO2, Calcium Combined with request same | DEPARTMENT OF | | date/time. | PATHOLOGY | + + + + + + + + | Performing | Address | City/State/Zipcode | Phone Number | | Organization | | | | + + + + + | [facility] DEPARTMENT OF | [address] | [place] [address] | | | PATHOLOGY | [address] | | | + + + + + | [facility]MENT [facility] | [address] | [place] [address] | | | PATHOLOGY | [address] | | | + + + + + SODIUM, PLASMA (10/22/2007 6:09 PM PDT) + +---------+ + + + | Component | Value | Ref Range | Performed | Pathologist | | | | | At | Signature | + +---------+ + + + | SODIUM, | 153 (H) | 134 - 143 | [facility] | | | PLASMA | | mmol/L | DEPARTMENT | | | (LAB) | | | OF | | | | | | PATHOLOGY | | + +---------+ + + + + + | Specimen | + + | Blood - Blood | + + + + + | Narrative | Performed At | + + + | New Reference ranges effective 07 for: Sodium, | [facility] | | Potassium, Chloride,Total CO2, Calcium | DEPARTMENT OF | | | PATHOLOGY | + + + + + + + + | Performing | Address | City/State/Zipcode | Phone Number | | Organization | | | | + + + + + | [facility] | [address] | [place] [address] | | | PATHOLOGY | [address] | | | + + + + + | [facility] | [address] | [place] [address] | | | PATHOLOGY | [address] | | | + + + + + SAL RAHMAN ONLY (10/22/2007 6:00 PM PDT) + + + + + + | Component | Value | Ref Range | Performed | Pathologist | | | | | At | Signature | + + + + + + | COLOR(UR) | Straw | | [facility] | | | | [...] + + + + | SPECIFIC | 1.010 | 1.005 - 1.030 | [facility] | | | GRAVITY | | | DEPARTMENT | | | | | | OF | | | | | | PATHOLOGY | | + + + + + + | BLOOD | Trace | | [facility] | | | | | | DEPARTMENT | | | | | | OF | | | | | | PATHOLOGY | | + + + + + + | PH(UR) | 7.0 | 5.0 - 8.0 | [facility] | [...] + + + + | NITRITES | Negative | Negative | [facility] | [...] + + + + + | [facility] DEPARTMENT OF | [address] | [place] [address] | | | PATHOLOGY | [address] | | | + + + + + | [facility] | [address] | [place] [address] | | | PATHOLOGY | [address] | | | + + + + + SPECIFIC GRAVITY, BODY FLUID (10/22/2007 6:00 PM PDT) + +---------+ + + + | Component | Value | Ref Range | Performed | Pathologist | | | | | At | Signature | + +---------+ + + + | SPEC GRAV | Err req | | [facility] | | | BODY FLUID | | | DEPARTMENT | | | | | | OF | | | | | | PATHOLOGY | | + +---------+ + + + | TYPE OF | Err req | | [facility] | | | FLUID | | | DEPARTMENT | | | | | | OF | | | | | | PATHOLOGY | | + +---------+ + + + + + | Specimen | + + | Urine - Urine | + + + + + | Narrative | Performed At | + + + | * Corrected 10/22/07 18:29: TYPE OF BODY FLUID, prev report: | [facility] | | freewf | DEPARTMENT OF | | | PATHOLOGY | + + + + + + + + | Performing | Address | City/State/Zipcode | Phone Number | | Organization | | | | + + + + + | [facility] | [address] | [place] [address] | | | PATHOLOGY | [address] | | | + + + + + | [facility] | [address] | [place] [address] | | | PATHOLOGY | [address] | | | + + + + + X-RAY CHEST 1 VIEW (10/22/2007 3:26 PM PDT) + + + + + + | Component | Value | Ref Range | Performed | Pathologist | | | | | At | Signature | + + + + + + | CHEST, 1 | Exam: AP | | | | | VIEW | chestComparison: | | | | | | 10/22/07History: | | | | | | Evaluate lungsFindings: | | | | | | A endotracheal tube tip | | | | | | is 5.2 cm above the | | | | | | elizabeth. Anasogastric | | | | | | tube can be seen | | | | | | extending below the | | | | | | level of thediaphragm | | | | | | with its tip terminating | | | | | | near the gastric | | | | | | antrum. A | | | | | | secondenteric tube can | | | | | | be seen coiling in the | | | | | | stomach with its tip | | | | | | near theGE junction. | | | | | | Bilateral pleural | | | | | | effusions and | | | | | | compressive lower | | | | | | lobeatelectasis is | | | | | | redemonstrated. The | | | | | | cardiac and mediastinal | | | | | | contouris unchanged. The | | | | | | vascular margins are | | | | | | appear sharper on | | | | | | currentstudy suggesting | | | | | | improvement of | | | | | | hydrostatic | | | | | | edemaImpression:Tubes | | | | | | and lines as above. | | | | | | Bilateral pleural | | | | | | effusions and | | | | | | associatedcompressive | | | | | | atelectasis. Improved | | | | | | hydrostatic edemaI have | | | | | | personally viewed this | | | | | | procedure/exam and | | | | | | reviewed this | | | | | | report.STATUS FINAL / | | | | | | Dr. JAYDA ROSARIO | | | | + + + + + + + + | Specimen | + + | | + + + +---------+ + + | Performing | Address | City/State/Zipcode | Phone Number | | Organization | | | | + +---------+ + + | [facility] DEPARTMENT OF | | | | | RADIOLOGY | | | | + +---------+ + + POTASSIUM, PLASMA (10/22/2007 1:26 PM PDT) + +-------+ + + + | Component | Value | Ref Range | Performed | Pathologist | | | | | At | Signature | + +-------+ + + + | POTASSIUM, | 3.8 | 3.4 - 5.0 | [facility] | | | PLASMA | | mmol/L | DEPARTMENT | | | (LAB) | | | OF | | | | | | PATHOLOGY | | + +-------+ + + + + + | Specimen | + + | | + + + + + | Narrative | Performed At | + + + | New Reference ranges effective 07 for: Sodium, | [facility] | | Potassium, Chloride,Total CO2, Calcium | DEPARTMENT OF | | | PATHOLOGY | + + + + + + + + | Performing | Address | City/State/Zipcode | Phone Number | | Organization | | | | + + + + + | [facility] DEPARTMENT OF | [address] | [place] [address] | | | PATHOLOGY | [address] | | | + + + + + | [facility] DEPARTMENT OF | [facility] | [place] [address] | | | PATHOLOGY | [address] | | | + + + + + POTASSIUM, PLASMA (10/22/2007 1:26 PM PDT) + + + + + + | Component | Value | Ref Range | Performed | Pathologist | | | | | At | Signature | + + + + + + | POTASSIUM, | Combined. | 3.4 - 5.0 | [facility] | | | PLASMA | | mmol/L | DEPARTMENT | | | (LAB) | | | OF | | | | | | PATHOLOGY | | + + + + + + + + | Specimen | + + | Blood - Blood | + + + + + | Narrative | Performed At | + + + | New Reference ranges effective 07 for: Sodium, | [facility] | | Potassium, Chloride,Total CO2, Calcium Combined with request same | DEPARTMENT OF | | date/time. | PATHOLOGY | + + + + + + + + | Performing | Address | City/State/Zipcode | Phone Number | | Organization | | | | + + + + + | [facility] DEPARTMENT OF | [address] | [place] [address] | | | PATHOLOGY | [address] | | | + + + + + | [facility] DEPARTMENT OF | [address] | [place] [address] | | | PATHOLOGY | [address] | | | + + + + + SODIUM, PLASMA (10/22/2007 1:26 PM PDT) + +---------+ + + + | Component | Value | Ref Range | Performed | Pathologist | | | | | At | Signature | + +---------+ + + + | SODIUM, | 153 (H) | 134 - 143 | [facility] | | | PLASMA | | mmol/L | DEPARTMENT | | | (LAB) | | | OF | | | | | | PATHOLOGY | | + +---------+ + + + + + | Specimen | + + | Blood - Blood | + + + + + | Narrative | Performed At | + + + | New Reference ranges effective 07 for: Sodium, | [facility] | | Potassium, Chloride,Total CO2, Calcium | DEPARTMENT OF | | | PATHOLOGY | + + + + + + + + | Performing | Address | City/State/Zipcode | Phone Number | | Organization | | | | + + + + + | [facility] DEPARTMENT OF | [address] | [place] [address] | | | PATHOLOGY | [address] | | | + + + + + | [facility] DEPARTMENT OF | [address] | [place] [address] | | | PATHOLOGY | [address] | | | + + + + + SPECIFIC GRAVITY, BODY FLUID (10/22/2007 10:05 AM PDT) + + + + + + | Component | Value | Ref Range | Performed | Pathologist | | | | | At | Signature | + + + + + + | SPEC GRAV | Not Recd | | [facility] | | | BODY FLUID | | | DEPARTMENT | | | | | | OF | | | | | | PATHOLOGY | | + + + + + + | TYPE OF | URN | | [facility] | | | FLUID | URN | | DEPARTMENT | | | | [...] | + + + + + | [facility] | [facility] | [place] [address] | | | PATHOLOGY | [address] | | | + + + + + | [facility] DEPARTMENT OF | [address] [facility] | [place] [address] | | | PATHOLOGY | [address] | | | + + + + + VASC LAB PORTABLE TRANSCRANIAL DOPPLER COMPLETE (10/22/2007 8:17 AM PDT) + + + + + + | Component | Value | Ref Range | Performed | Pathologist | | | | | At | Signature | + + + + + + | [facility]ASC LAB | Med Rec No:[id number] | | | | | PORTABLE | Name: | | | | | TRANSCRANIA | GLORIA ADHIKARI | | | | | L DOPPLER | Birthday: 1950 | | | | | COMPLETE | Sex: F | | | | | | Alias:Patient Location: | | | | | | 7NSIStatus: Inpatient | | | | | | ActiveOrdering | | | | | | Physician: | | | | | | AGNES SARGENT PORT | | | | | | TRANSCRANIAL DOP COMP | | | | | | completed on 10/22/2007 | | | | | | 1:42 PMAccession | | | | | | #[id number]:TRANSCRAN | | | | | | IAL DOPPLER STUDY: | | | | | | 10/22/2007 Dictated | | | | | | 10/24/2007INDICATION: | | | | | | Vasospasm.The blood | | | | | | pressure at the time of | | | | | | this examination is | | | | | | 125/65 mmHg.The duplex | | | | | | scanner was used to | | | | | | examine the ophthalmic, | | | | | | intracranial,internal | | | | | | carotid, middle | | | | | | cerebral, anterior | | | | | | cerebral, | | | | | | posteriorcerebral and | | | | | | intracranial vertebral | | | | | | arteries bilaterally. | | | | | | Thebasilar artery | | | | | | cannot be located on | | | | | | this examination. | | | | | | Theextracranial | | | | | | internal carotid | | | | | | arteries were also | | | | | | examined.All of the | | | | | | above-noted vessels were | | | | | | patent with flows in | | | | | | the | | | | | | expecteddirection.The | | | | | | maximum middle cerebral | | | | | | artery flow velocity on | | | | | | the right is 335cm/sec | | | | | | with a mean velocity of | | | | | | 222 cm/sec and a | | | | | | calculatedhemispheric | | | | | | ratio of 5.16. There | | | | | | are also mean flow | | | | | | velocities of167 cm/sec | | | | | | in the anterior cerebral | | | | | | artery and 200 cm/sec | | | | | | in theposterior cerebral | | | | | | artery on the right.On | | | | | | the left, the maximum | | | | | | middle cerebral artery | | | | | | flow velocity is | | | | | | 171cm/sec with a mean | | | | | | velocity of 108 cm/sec | | | | | | and a | | | | | | calculatedhemispheric | | | | | | ratio of 2.34. There | | | | | | is a mean flow velocity | | | | | | of 222cm/sec in the | | | | | | intracranial internal | | | | | | carotid artery on the | | | | | | left | | | | | | side.IMPRESSION:IMPRESSI | | | | | | ON:An abnormal | | | | | | transcranial Doppler | | | | | | study. On the right, | | | | | | there appearsto be | | | | | | vasospasm involving the | | | | | | middle cerebral | | | | | | distribution. Theremay | | | | | | also be vasospasm in | | | | | | the anterior cerebral | | | | | | and posterior | | | | | | cerebralarteries on the | | | | | | right side. On the | | | | | | left side, there is | | | | | | criteria forvasospasm in | | | | | | the intracranial | | | | | | portion of the internal | | | | | | carotid artery.END | | | | | | IMPRESSION:END | | | | | | IMPRESSIONI have | | | | | | personally viewed this | | | | | | procedure/exam and | | | | | | reviewed this | | | | | | report.STATUS FINAL / | | | | | | Dr. KALIA ERIC | | | | | | L.STATUS PRELIMINARY - | | | | | | UNSIGNED / [place] | | | | + + + + + + + + | Specimen | + + | | + + + +---------+ + + | Performing | Address | City/State/Zipcode | Phone Number | | Organization | | | | + +---------+ + + | [facility] DEPARTMENT OF | | | | | RADIOLOGY | | | | + +---------+ + + BLOOD GASES, ARTERIAL - LAB (10/22/2007 7:42 AM PDT) + + + + + + | Component | Value | Ref Range | Performed | Pathologist | | | | | At | Signature | + + + + + + | PAT TEMP | NG | Degree C | [facility] | | | ARTERIAL | | | DEPARTMENT | | | | | | OF | | | | | | PATHOLOGY | | + + + + + + | FIO2 | 100 | | [facility] | | | ARTERIAL | | | DEPARTMENT | | | | | | OF | | | | | | PATHOLOGY | | + + + + + + | PH ARTERIAL | 7.44 | 7.37 - 7.44 | [facility] | | | | | | DEPARTMENT | | | | | | OF | | | | | | PATHOLOGY | | + + + + + + | PCO2 | 37 | 32 - 43 mmHg | [facility] | | | ARTERIAL | | | DEPARTMENT | | | | | | OF | | | | | | PATHOLOGY | | + + + + + + | PO2 | 111 (H) | 72 - 104 mmHg | [facility] | | | ARTERIAL | | | DEPARTMENT | | | | | | OF | | | | | | PATHOLOGY | | + + + + + + | BASE EXCESS | 0.9 | | [facility] | | | ARTERIAL | | | DEPARTMENT | | | | | | OF | | | | | | PATHOLOGY | | + + + + + + | HCO3 | 25 | 21 - 27 mmol/L | [facility] | | | ARTERIAL | | | DEPARTMENT | | | | | | OF | | | | | | PATHOLOGY | | + + + + + + | TOTAL CO2 | 26 | 22 - 28 mmol/L | [facility] | | | ARTERIAL | | | DEPARTMENT | | | | | | OF | | | | | | PATHOLOGY | | + + + + + + | O2 SAT, | 98.5 (H) | 92.0 - 98.0 % | [facility] | | | ARTERIAL | | | DEPARTMENT | | | | | | OF | | | | | | PATHOLOGY | | + + + + + + + + | Specimen | + + | Blood - Blood | + + + + + | Narrative | Performed At | + + + | Arterial Blood Gas | [facility] | | | DEPARTMENT OF | | | PATHOLOGY | + + + + + + + + | Performing | Address | City/State/Zipcode | Phone Number | | Organization | | | | + + + + + | [facility] | [address] | [place] [address] | | | PATHOLOGY | [address] | | | + + + + + | [facility] | [address] | [place] [address] | | | PATHOLOGY | [address] | | | + + + + + FREDERIC CHACON ONLY, STAT (10/22/2007 6:21 AM PDT) + + + + + + | Component | Value | Ref Range | Performed | Pathologist | | | | | At | Signature | + + + + + + | GRAM SMEAR | No organisms seen.Rare | | [facility] | | | ONLY-[facility] | White blood cells | | DEPARTMENT | | | | present | | OF | | | | | | PATHOLOGY | | + + + + + + | SMEAR | Specimen | | [facility] | | | PREPARATION | bloody/cloudy;cytospin | | DEPARTMENT | | | | diluted | | OF | | | | | | PATHOLOGY | | + + + + + + | SOURCE BODY | csf | | [facility] | | | SITE [...] | + + + + + | [facility] | [address] [facility] | [place] [address] | | | PATHOLOGY | [address] | | | + + + + + | [facility] | [facility] | [place] [address] | | | PATHOLOGY | [address] | | | + + + + + CSF INFO PANEL (10/22/2007 6:21 AM PDT) + + + + + + | Component | Value | Ref Range | Performed | Pathologist | | | | | At | Signature | + + + + + + | CSF COLOR | Sl Xantho | Colorless | [facility] | | | | | | DEPARTMENT | | | | | | OF | | | | | | PATHOLOGY | | + + + + + + | CSF | Bloody | Clear | [facility] | | | [...] Performed At | + + + | Cell counts Phoned Readback. | [facility] | | | DEPARTMENT OF | | | PATHOLOGY | + + + + + + + + | Performing | Address | City/State/Zipcode | Phone Number | | Organization | | | | + + + + + | [facility] DEPARTMENT OF | [address] | [place] [address] | | | PATHOLOGY | [address] | | | + + + + + | [facility] DEPARTMENT OF | [address] | [place] [address] | | | PATHOLOGY | [address] | | | + + + + + CULTURE, CSF BACTI (10/22/2007 6:21 AM PDT) + + + + + [...] at | | | | | | [facility]. Culture: | | | | | | Final Report: No | | | | | | growth after 3 days. | | | | | | Final ReportComment: | | | | | | Test performed at [facility] | | | | | | [facility] | | | | | | Laboratory. | | | | + + + + + + + + | Specimen | + + | Cerebrospinal fluid | + + + + + + + | Performing | Address | City/State/Zipcode | Phone Number | | Organization | | | | + + + + + | [facility] | [address] | [place] [address] | | | LAB-MICRO | | | | + + + + + GLUCOSE, CSF (10/22/2007 6:21 AM PDT) + +--------+ + + + | Component | Value | Ref Range | Performed | Pathologist | | | | | At | Signature | + +--------+ + + + | GLUCOSE CSF | 74 (H) | 40 - 70 mg/dL | [facility] | | | | | | DEPARTMENT | | | | | | OF | | | | | | PATHOLOGY | | + +--------+ + + + + + | Specimen | + + | Cerebrospinal fluid | + + + + + | Narrative | Performed At | + + + | Cell counts Phoned Readback. | [facility] | | | DEPARTMENT OF | | | PATHOLOGY | + + + + + + + + | Performing | Address | City/State/Zipcode | Phone Number | | Organization | | | | + + + + + | [facility] DEPARTMENT OF | [facility] | [place] [address] | | | PATHOLOGY | [address] | | | + + + + + | [facility] DEPARTMENT OF | [address] [facility] | [place] [address] | | | PATHOLOGY | [address] | | | + + + + + PROTEIN, CSF (10/22/2007 6:21 AM PDT) + +--------+ + + + | Component | Value | Ref Range | Performed | Pathologist | | | | | At | Signature | + +--------+ + + + | TOTAL | 62 (H) | 15 - 45 mg/dL | [...] Performed At | + + + | Cell counts Phoned Readback. | [facility] | | | DEPARTMENT OF | | | PATHOLOGY | + + + + + + + + | Performing | Address | City/State/Zipcode | Phone Number | | Organization | | | | + + + + + | [facility] | [address] [facility] | [place] [address] | | | PATHOLOGY | [address] | | | + + + + + | [facility] | [address] [place] [address] | [place] [address] | | | PATHOLOGY | [address] | | | + + + + + CELL COUNT DIFF, CSF (10/22/2007 6:21 AM PDT) + +---------+ + + + | Component | Value | Ref Range | Performed | Pathologist | | | | | At | Signature | + +---------+ + + + | CSF WBC | 278 (*) | <6 /cu mm | [facility] | | | | | | DEPARTMENT | | | | | | OF | | | | | | PATHOLOGY | | + +---------+ + + + | CSF RBC | [address] | /cu mm | [facility] | | [...] +---------+ + + + | NEUTROPHIL( | 70 (H) | <7 % | [facility] | | | CSF) | | | DEPARTMENT | | | | | | OF | | | | | | PATHOLOGY | | + +---------+ + + + | LYMPHOCYTES | 16 (L) | 40 - 80 % | [facility] | | | (CSF) | | | DEPARTMENT | | | | | | OF | | | | | | PATHOLOGY | | + +---------+ + + + | MONOCYTES(C | 6 (L) | 15 - 45 % | [facility] | | | SF) | | | DEPARTMENT | | | | | | OF | | | | | | PATHOLOGY | | + +---------+ + + + | MACROPHAGES | 4 | % | [facility] | | | (CSF) | | | DEPARTMENT | | | | | | OF | | | | | | PATHOLOGY | | + +---------+ + + + | EOSINOPHILS | 4 | % | [facility] | | | (CSF) | | | DEPARTMENT | | | | | | OF | | | | | | PATHOLOGY | | + +---------+ + + + + + | Specimen | + + | Cerebrospinal fluid | + + + + + | Narrative | Performed At | + + + | Cell counts Phoned Readback. | [facility] | | | DEPARTMENT OF | | | PATHOLOGY | + + + + + + + + | Performing | Address | City/State/Zipcode | Phone Number | | Organization | | | | + + + + + | [facility] DEPARTMENT OF | [address] | [place] [address] | | | PATHOLOGY | [address] | | | + + + + + | [facility] | [address] | [place] [address] | | | PATHOLOGY | [address] | | | + + + + + CULTURE, BLOOD BACTI & YEAST (10/22/2007 5:00 AM PDT) + + + + + + | Component | Value | Ref Range | Performed | Pathologist | | | | | At | Signature | + + + + + + | SOURCE BODY | Central Line Blood | | | | | SITE | | | | | + + + + + + | CULTURE | Blood Culture | | | | | RESULT | | | | | | | Source.................. | | | | | | : Central Line Blood | | | | | | | | | | | | Result.................. | | | | | | . Final: No growth at 5 | | | | | | days.Comment: Test | | | | | | performed at [facility] | | | | | | [facility] | | | | | | Laboratory. | | | | + + + + + + + + | Specimen | + + | Blood - Central line | + + + + + + + | Performing | Address | City/State/Zipcode | Phone Number | | Organization | | | | + + + + + | [facility] | [address] | [place] [address] | | | LAB-MICRO | | | | + + + + + X-RAY PORTABLE CHEST 1 VIEW (10/22/2007 3:26 AM PDT) + + + + + + | Component | Value | Ref Range | Performed | Pathologist | | | | | At | Signature | + + + + + + | X-RAY | STUDY: AP chest | | | | | PORTABLE | radiograph | | | | | CHEST 1 | 10/22/07HISTORY: | | | | | VIEW | Respiratory | | | | | | failureCOMPARISON: | | | | | | YesterdayFINDINGS:Endotr | | | | | | acheal tube has been | | | | | | placed with the tip 9 mm | | | | | | above the elizabeth. Left | | | | | | subclavian central | | | | | | venous catheter remains | | | | | | in place. Lungvolumes | | | | | | have decreased and there | | | | | | is increased bilateral | | | | | | pulmonaryvasculature | | | | | | indistinctness. There | | | | | | is increased right | | | | | | pleural fluid.Cardiac | | | | | | and mediastinal contours | | | | | | are unchanged. Marked | | | | | | gaseousdistention of | | | | | | the stomach is | | | | | | noted.IMPRESSION:1. | | | | | | Endotracheal tube | | | | | | terminates less than 1 | | | | | | cm above the elizabeth | | | | | | andshould be retracted | | | | | | 2-3 cm.2. Decreased | | | | | | lung volumes with | | | | | | further increase in | | | | | | hydrostaticpulmonary | | | | | | edema and right pleural | | | | | | effusion.I have | | | | | | personally viewed this | | | | | | procedure/exam and | | | | | | reviewed this | | | | | | report.STATUS FINAL / | | | | | | Dr. MONTELONGO | | | | | | LYNDON PENDING | | | | | | FINAL APPROVAL / | | | | | | SHADY HERMOSILLO | | | | | | PRELIMINARY - UNSIGNED / | | | | | | Dr. SHADY ROSALES | | | | + + + [...] | | + +---------+ + + CBC ONLY (10/22/2007 2:45 AM PDT) + + + + + + | Component | Value | Ref Range | Performed | Pathologist | | | | | At | Signature | + + + + + + | WHITE CELL | 11.1 (H) | 4.4 - 11.0 K/cu | [facility] | | | COUNT | | mm | DEPARTMENT | | | | | | OF | | | | | | PATHOLOGY | | + + + + + + | RED CELL | 2.79 (L) | 4.00 - 5.20 | [facility] | | | COUNT | | M/cu mm | DEPARTMENT | | | | | | OF | | | | | | PATHOLOGY | | + + + + + + | HEMOGLOBIN | 8.9 (L) | 12.0 - 16.0 | [facility] | | | | | g/dL | DEPARTMENT | | | | | | OF | | | | | | PATHOLOGY | | + + + + + + | HEMATOCRIT | 26.0 (L) | 36.0 - 46.0 % | [facility] | | | | | | DEPARTMENT | | | | | | OF | | | | | | PATHOLOGY | | + + + + + + | MCV | 93.3 | 80.0 - 96.0 fL | [facility] | | | | | | DEPARTMENT | | | | | | OF | | | | | | PATHOLOGY | | + + + + + + | MCHC | 34.4 | 33.4 - 35.5 | [facility] | | | | | g/dL | DEPARTMENT | | | | | | OF | | | | | | PATHOLOGY | | + + + + + + | RDW | 13.3 | 11.5 - 15.0 % | [facility] | | | | | | DEPARTMENT | | | | | | OF | | | | | | PATHOLOGY | | + + + + + + | PLATELET | 190 | 150 - 400 K/cu | [facility] [...] DEPARTMENT OF | [address] | [place] [address] | | | PATHOLOGY | [address] | | | + + + + + | [facility] DEPARTMENT | [address] | [place] [address] | | | PATHOLOGY | [address] | | | + + + + + MAGNESIUM, PLASMA (10/22/2007 2:45 AM PDT) + +-------+ + + + | Component | Value | Ref Range | Performed | Pathologist | | | | | At | Signature | + +-------+ + + + | MAGNESIUM,P | 2.2 | 1.8 - 2.5 mg/dL | [facility] | | | LASMA | | | DEPARTMENT | | | | | | OF | | | | | | PATHOLOGY | | + +-------+ + + + + + | Specimen | + + | Blood - Blood | + + + + + | Narrative | Performed At | + + + | New Reference ranges effective 07 for: Sodium, | [facility] | | Potassium, Chloride,Total CO2, Calcium | DEPARTMENT OF | | | PATHOLOGY | + + + + + + + + | Performing | Address | City/State/Zipcode | Phone Number | | Organization | | | | + + + + + | [facility] | [address] [facility] | [place] [address] | | | PATHOLOGY | [address] | | | + + + + + | [facility] | [address] [facility] | [place] [address] | | | PATHOLOGY | [address] | | | + + + + + RENAL FUNCTION SET (NA,K,CL,CO2,BUN,CREAT,GLUC,CA,PHOS,ALB ) (10/22/2007 2:45 AM PDT) + +---------+ + + + | Component | Value | Ref Range | Performed | Pathologist | | | | | At | Signature | + +---------+ + + + | GLUCOSE, | 117 (H) | 60 - 99 mg/dL | [facility] | | | PLASMA | | | DEPARTMENT | | | (LAB) | | | OF | | | | | | PATHOLOGY | | + +---------+ + + + | BUN, PLASMA | 8 | 6 - 20 mg/dL | [facility] [...] +---------+ + + + | ALBUMIN, | 3.3 (L) | 3.5 - 4.7 g/dL | [facility] | | | PLASMA | | | DEPARTMENT | | | (LAB) | | | OF | | | | | | PATHOLOGY | | + +---------+ + + + | CALCIUM, | 8.3 (L) | 8.6 - 10.2 | [facility] | | | PLASMA | | mg/dL | DEPARTMENT | | | (LAB) | | | OF | | | | | | PATHOLOGY | | + +---------+ + + + | PHOSPHORUS, | 3.3 | 2.4 - 4.7 mg/dL | [facility] | | | PLASMA | | | DEPARTMENT | | | (LAB) | | | OF | | | | | | PATHOLOGY | | + +---------+ + + + | SODIUM, | 146 (H) | 134 - 143 | [facility] | | | PLASMA | | mmol/L | DEPARTMENT | | | (LAB) | | | OF | | | | | | PATHOLOGY | | + +---------+ + + + | POTASSIUM, | 3.5 | 3.4 - 5.0 | [facility] | | | PLASMA | | mmol/L | DEPARTMENT | | | (LAB) | | | OF | | | | | | PATHOLOGY | | + +---------+ + + + | CHLORIDE, | 114 (H) | 97 - 108 mmol/L | [facility] | | | PLASMA | | | DEPARTMENT | | | (LAB) | | | OF | | | | | | PATHOLOGY | | + +---------+ + + + | TOTAL CO2, | 26 | 23 - 31 mmol/L | [facility] | | | PLASMA | | | DEPARTMENT | | | (LAB) | | | OF | | | | | | PATHOLOGY | | + +---------+ + + + + + | Specimen | + + | Blood - Blood | + + + + + | Narrative | Performed At | + + + | New Reference ranges effective 07 for: Sodium, | [facility] | | Potassium, Chloride,Total CO2, Calcium | DEPARTMENT OF | | | PATHOLOGY | + + + + + + + + | Performing | Address | City/State/Zipcode | Phone Number | | Organization | | | | + + + + + | [facility] DEPARTMENT | [address] [facility] [facility] | [place] [address] | | | PATHOLOGY | [address] | | | + + + + + | [facility] | [facility] [facility] | [place] [address] | | | PATHOLOGY | [address] | | | + + + + + RESP CARE THERAPY (10/22/2007 1:35 AM PDT) + + + + + + | Component | Value | Ref Range | Performed | Pathologist | | | | | At | Signature | + + + + + + | RESPIRATORY | Nasal cannula at 3 | | [facility] | | | CARE | LPM.Electronically | | RESPIRATORY | | | | Signed by: Madhu | | THERAPY | | | | [facility] | | | | + + + + + + + + | Specimen | + + | | + + + + + | Narrative | Performed At | + + + | Ordered by an unspecified provider. | [facility] | | | RESPIRATORY | | | THERAPY | + + + + + + + + | Performing | Address | City/State/Zipcode | Phone Number | | Organization | | | | + + + + + | [facility] RESPIRATORY | [address] [facility] [facility] | [place], [place] | | | THERAPY | [address] | [address] | | + + + + + | [facility] RES[facility] | [address] [facility] [address] [facility] | [place], [place] | | | THERAPY | [facility] | [address] | | + + + + + BLOOD GASES, ARTERIAL - LAB (10/22/2007 1:30 AM PDT) + + + + + + | Component | Value | Ref Range | Performed | Pathologist | | | | | At | Signature | + + + + + + | PAT TEMP | NG | Degree C | [facility] | | | ARTERIAL | | | DEPARTMENT | | | | | | OF | | | | | | PATHOLOGY | | + + + + + + | FIO2 | NG | | [facility] | | | ARTERIAL | | | DEPARTMENT | | | | | | OF | | | | | | PATHOLOGY | | + + + + + + | PH ARTERIAL | 7.49 (H) | 7.37 - 7.44 | [facility] | | | | | | DEPARTMENT | | | | | | OF | | | | | | PATHOLOGY | | + + + + + + | PCO2 | 31 (L) | 32 - 43 mmHg | [facility] | | | ARTERIAL | | | DEPARTMENT | | | | | | OF | | | | | | PATHOLOGY | | + + + + + + | PO2 | 86 | 72 - 104 mmHg | [facility] | | | ARTERIAL | | | DEPARTMENT | | | | | | OF | | | | | | PATHOLOGY | | + + + + + + | BASE EXCESS | 0.9 | | [facility] | | | ARTERIAL | | | DEPARTMENT | | | | | | OF | | | | | | PATHOLOGY | | + + + + + + | HCO3 | 23 | 21 - 27 mmol/L | [facility] | | | ARTERIAL | | | DEPARTMENT | | | | | | OF | | | | | | PATHOLOGY | | + + + + + + | TOTAL CO2 | 24 | 22 - 28 mmol/L | [facility] | | | ARTERIAL | | | DEPARTMENT | | | | | | OF | | | | | | PATHOLOGY | | + + + + + + | O2 SAT, | 97.1 | 92.0 - 98.0 % | [facility] | | | ARTERIAL | | | DEPARTMENT | | | | | | OF | | | | | | PATHOLOGY | | + + + + + + + + | Specimen | + + | Blood - A Line | + + + + + | Narrative | Performed At | + + + | Arterial Blood Gas | [facility] | | | DEPARTMENT OF | | | PATHOLOGY | + + + + + + + + | Performing | Address | City/State/Zipcode | Phone Number | | Organization | | | | + + + + + | [facility]MENT [facility] | [address] [facility] | [place] [address] | | | PATHOLOGY | [address] | | | + + + + + | [facility] DE[facility]MENT [facility] | [address] [facility] | [place] [address] | | | PATHOLOGY | [address] | | | + + + + + SPECIFIC GRAVITY, BODY FLUID (10/22/2007 12:01 AM PDT) + +---------+ + + + | Component | Value | Ref Range | Performed | Pathologist | | | | | At | Signature | + +---------+ + + + | SPEC GRAV | Err req | | [facility] | | | BODY FLUID | | | DEPARTMENT | | | | | | OF | | | | | | PATHOLOGY | | + +---------+ + + + | TYPE OF | URN | | [facility] | | | FLUID | URN | | DEPARTMENT | | | | [...] DEPARTMENT OF | [address] | [place], [place] [address] | | | PATHOLOGY | [address] | | | + + + + + | [facility] DEPARTMENT OF | [address] | [place] [address] | | | PATHOLOGY | [address] | | | + + + + + SPECIFIC GRAVITY, BODY FLUID (10/21/2007 10:05 PM PDT) + +---------+ + + + | Component | Value | Ref Range | Performed | Pathologist | | | | | At | Signature | + +---------+ + + + | SPEC GRAV | Err req | | [facility] | | | BODY FLUID | | | DEPARTMENT | | | | | | OF | | | | | | PATHOLOGY | | + +---------+ + + + | TYPE OF | URN | | [facility] | | | FLUID | URN | | DEPARTMENT | | | | [...] + + + + + | [facility] DEPARTMENT OF | [facility] | [place] [address] | | | PATHOLOGY | [address] | | | + + + + + | [facility] | [facility] | [place] [address] | | | PATHOLOGY | [address] | | | + + + + + BLOOD GASES, ARTERIAL - LAB (10/21/2007 10:00 PM PDT) + + + + + + | Component | Value | Ref Range | Performed | Pathologist | | | | | At | Signature | + + + + + + | PAT TEMP | NG | Degree C | [facility] | | | ARTERIAL | | | DEPARTMENT | | | | | | OF | | | | | | PATHOLOGY | | + + + + + + | FIO2 | NG | | [facility] | | | ARTERIAL | | | DEPARTMENT | | | | | | OF | | | | | | PATHOLOGY | | + + + + + + | PH ARTERIAL | 7.51 (H) | 7.37 - 7.44 | [facility] | | | | | | DEPARTMENT | | | | | | OF | | | | | | PATHOLOGY | | + + + + + + | PCO2 | 31 (L) | 32 - 43 mmHg | [facility] | | | ARTERIAL | | | DEPARTMENT | | | | | | OF | | | | | | PATHOLOGY | | + + + + + + | PO2 | 61 (L) | 72 - 104 mmHg | [facility] | | | ARTERIAL | | | DEPARTMENT | | | | | | OF | | | | | | PATHOLOGY | | + + + + + + | BASE EXCESS | 1.8 | | [facility] | | | ARTERIAL | | | DEPARTMENT | | | | | | OF | | | | | | PATHOLOGY | | + + + + + + | HCO3 | 24 | 21 - 27 mmol/L | [facility] | | | ARTERIAL | | | DEPARTMENT | | | | | | OF | | | | | | PATHOLOGY | | + + + + + + | TOTAL CO2 | 25 | 22 - 28 mmol/L | [facility] | | | ARTERIAL | | | DEPARTMENT | | | | | | OF | | | | | | PATHOLOGY | | + + + + + + | O2 SAT, | 92.0 | 92.0 - 98.0 % | [facility] | | | ARTERIAL | | | DEPARTMENT | | | | | | OF | | | | | | PATHOLOGY | | + + + + + + + + | Specimen | + + | Blood - A Line | + + + + + | Narrative | Performed At | + + + | Arterial Blood Gas | [facility] | | | DEPARTMENT OF | | | PATHOLOGY | + + + + + + + + | Performing | Address | City/State/Zipcode | Phone Number | | Organization | | | | + + + + + | [facility] | [address] [facility] | [place] [address] | | | PATHOLOGY | [address] | | | + + + + + | [facility] | [address] [facility] | [place] [address] | | | PATHOLOGY | [address] | | | + + + + + RESP CARE THERAPY (10/21/2007 9:20 PM PDT) + + + + + + | Component | Value | Ref Range | Performed | Pathologist | | | | | At | Signature | + + + + + + | RESPIRATORY | Pain Assessment:Patients | | [facility] | | | CARE | pain assessed and was a | | RESPIRATORY | | | | 0 on a scale of | | THERAPY | | | | 0-10.Interventions:Medic | | | | | | ation given via SVN with | | | | | | Ipratropium Florence .5 | | | | | | mg / Albuterol 2.5 | | | | | | mgAssessment:Breath | | | | | | Sounds: wheeze upper | | | | | | airway .Cough/Sputum: | | | | | | Patient had a productive | | | | | | cough. Secretions | | | | | | obtained:secretions | | | | | | swallowed.Outcome after | | | | | | therapy: There was | | | | | | minimal improvement in | | | | | | BS or work ofbreathing | | | | | | after therapy.Treatment | | | | | | Plan:No changes in | | | | | | therapy are | | | | | | indicated.Electronically | | | | | | Signed by: Madhu | | | | | | PJ Douglass | | | | + + + + + + + + | Specimen | + + | | + + + + + | Narrative | Performed At | + + + | Ordered by an unspecified provider. | [facility] | | | RESPIRATORY | | | THERAPY | + + + + + + + + | Performing | Address | City/State/Zipcode | Phone Number | | Organization | | | | + + + + + | [facility] RESPIRATORY | [address] [facility] | [place], [place] | | | THERAPY | [address] | [address] | | + + + + + | [facility] RESPIRATORY | [address] [facility] | [place], [place] | | | THERAPY | [address] | [address] | | + + + + + X-RAY PORTABLE CHEST 1 VIEW (10/21/2007 8:58 PM PDT) + + + + + + | Component | Value | Ref Range | Performed | Pathologist | | | | | At | Signature | + + + + + + | X-RAY | STUDY: AP chest | | | | | PORTABLE | radiograph | | | | | CHEST 1 | 10/21/07HISTORY: | | | | | VIEW | HypoxemiaCOMPARISON: | | | | | | YesterdayFINDINGS:Left | | | | | | subclavian central | | | | | | venous catheter remains | | | | | | in place. There is | | | | | | asmall right pleural | | | | | | effusion with associated | | | | | | right base | | | | | | atelectasis.Minimal | | | | | | diffuse bilateral | | | | | | pulmonary vasculature | | | | | | indistinctness | | | | | | andperibronchial cuffing | | | | | | is reflective of | | | | | | developing pulmonary | | | | | | edema.The cardiac and | | | | | | mediastinal contours are | | | | | | unchanged. There is | | | | | | nopneumothorax nor a | | | | | | left pleural | | | | | | effusion.IMPRESSION:New | | | | | | bilateral pulmonary | | | | | | vasculature | | | | | | indistinctness with | | | | | | small rightpleural | | | | | | effusion, consistent | | | | | | with developing | | | | | | hydrostatic | | | | | | pulmonaryedema.I have | | | | | | personally viewed this | | | | | | procedure/exam and | | | | | | reviewed this | | | | | | report.STATUS FINAL / | | | | | | Dr. MONTELONGO | | | | | | LYNDON PENDING | | | | | | FINAL APPROVAL / | | | | | | SHADY HERMOSILLO | | | | | | PRELIMINARY - UNSIGNED / | | | | | | Dr. SHADY ROSALES | | | | + + + + + + + + | Specimen | + + | | + + + +---------+ + + | Performing | Address | City/State/Zipcode | Phone Number | | Organization | | | | + +---------+ + + | [facility] DEPARTMENT OF | | | | | RADIOLOGY | | | | + +---------+ + + POTASSIUM, PLASMA (10/21/2007 8:51 PM PDT) + +---------+ + + + | Component | Value | Ref Range | Performed | Pathologist | | | | | At | Signature | + +---------+ + + + | POTASSIUM, | 3.3 (L) | 3.4 - 5.0 | [facility] | | | PLASMA | | mmol/L | DEPARTMENT | | | (LAB) | | | OF | | | | | | PATHOLOGY | | + +---------+ + + + + + | Specimen | + + | | + + + + + | Narrative | Performed At | + + + | New Reference ranges effective 07 for: Sodium, | [facility] | | Potassium, Chloride,Total CO2, Calcium | DEPARTMENT OF | | | PATHOLOGY | + + + + + + + + | Performing | Address | City/State/Zipcode | Phone Number | | Organization | | | | + + + + + | [facility] DEPARTMENT OF | [address] | [place] [address] | | | PATHOLOGY | [address] | | | + + + + + | [facility] DEPARTMENT OF | [address] | [place] [address] | | | PATHOLOGY | [address] | | | + + + + + POTASSIUM, PLASMA (10/21/2007 8:51 PM PDT) + + + + + + | Component | Value | Ref Range | Performed | Pathologist | | | | | At | Signature | + + + + + + | POTASSIUM, | Combined. | 3.4 - 5.0 | [facility] | | | PLASMA | | mmol/L | DEPARTMENT | | | (LAB) | | | OF | | | | | | PATHOLOGY | | + + + + + + + + | Specimen | + + | Blood - Blood | + + + + + | Narrative | Performed At | + + + | New Reference ranges effective 07 for: Sodium, | [facility] | | Potassium, Chloride,Total CO2, Calcium Combined with request same | DEPARTMENT OF | | date/time. | PATHOLOGY | + + + + + + + + | Performing | Address | City/State/Zipcode | Phone Number | | Organization | | | | + + + + + | [facility] DEPARTMENT OF | [address] | [place] [address] | | | PATHOLOGY | [address] | | | + + + + + | [facility] DEPARTMENT | [address] | [place] [address] | | | PATHOLOGY | [address] | | | + + + + + SODIUM, PLASMA (10/21/2007 8:51 PM PDT) + +-------+ + + + | Component | Value | Ref Range | Performed | Pathologist | | | | | At | Signature | + +-------+ + + + | SODIUM, | 143 | 134 - 143 | [facility] | | | PLASMA | | mmol/L | DEPARTMENT | | | (LAB) | | | OF | | | | | | PATHOLOGY | | + +-------+ + + + + + | Specimen | + + | Blood - Blood | + + + + + | Narrative | Performed At | + + + | New Reference ranges effective 07 for: Sodium, | [facility] | | Potassium, Chloride,Total CO2, Calcium | DEPARTMENT OF | | | PATHOLOGY | + + + + + + + + | Performing | Address | City/State/Zipcode | Phone Number | | Organization | | | | + + + + + | [facility] DEPARTMENT | [address] [facility] | [place] [address] | | | PATHOLOGY | [address] | | | + + + + + | [facility] DEPARTMENT | [address] [facility] | [place] [address] | | | PATHOLOGY | [address] | | | + + + + + RESP CARE THERAPY (10/21/2007 5:00 PM PDT) + + + + + + | Component | Value | Ref Range | Performed | Pathologist | | | | | At | Signature | + + + + + + | RESPIRATORY | Pain Assessment:Patients | | [facility] | | | CARE | pain assessed and was a | | RESPIRATORY | | | | 0 on a scale of | | THERAPY | | | | 0-10.Interventions:Medic | | | | | | ation given via SVN with | | | | | | Ipratropium Florence .5 | | | | | | mg / Albuterol 2.5 | | | | | | mgAssessment:Breath | | | | | | Sounds: wheeze | | | | | | .Cough/Sputum: Patient | | | | | | had a productive cough. | | | | | | Secretions | | | | | | obtained:secretions | | | | | | swallowed.Outcome after | | | | | | therapy: There was | | | | | | moderate improvement in | | | | | | BS or work ofbreathing | | | | | | after therapy.Treatment | | | | | | Plan:Non protocol | | | | | | patient.Electronically | | | | | | Signed by: Humble | | | | | | Desmond, | | | | + + + + + + + + | Specimen | + + | | + + + + + | Narrative | Performed At | + + + | Ordered by an unspecified provider. | [facility] | | | RESPIRATORY | | | THERAPY | + + + + + + + + | Performing | Address | City/State/Zipcode | Phone Number | | Organization | | | | + + + + + | [facility] RESPIRATORY | [address] [facility] | [place], [place] | | | THERAPY | [facility] | [address] | | + + + + + | [facility] RESPIRATORY | [address] [facility] | [place], [place] | | | THERAPY | [facility] | [address] | | + + + + + SAL ARHMAN ONLY (10/21/2007 4:05 PM PDT) + + + + + + | Component | Value | Ref Range | Performed | Pathologist | | | | | At | Signature | + + + + + + | COLOR(UR) | Straw | | [facility] | | | | [...] + + + + | SPECIFIC | 1.015 | 1.005 - 1.030 | [facility] | | | GRAVITY | | | DEPARTMENT | | | | | | OF | | | | | | PATHOLOGY | | + + + + + + | BLOOD | Trace | | [facility] | | | | | | DEPARTMENT | | | | | | OF | | | | | | PATHOLOGY | | + + + + + + | PH(UR) | 8.0 | 5.0 - 8.0 | [facility] | [...] + + + + | NITRITES | Negative | Negative | [facility] | [...] | + + + + + | [facility] | [address] | [place] [address] | | | PATHOLOGY | [address] | | | + + + + + | [facility] | [address] | [place] [address] | | | PATHOLOGY | [address] | | | + + + + + SPECIFIC GRAVITY, BODY FLUID (10/21/2007 4:05 PM PDT) + +---------+ + + + | Component | Value | Ref Range | Performed | Pathologist | | | | | At | Signature | + +---------+ + + + | SPEC GRAV | Err req | | [facility] | | | BODY FLUID | | | DEPARTMENT | | | | | | OF | | | | | | PATHOLOGY | | + +---------+ + + + | TYPE OF | URN | | [facility] | | | FLUID | URN | | DEPARTMENT | | | | [...] + | [facility] DE[facility] OF | [address] [facility] | [place] [address] | | | PATHOLOGY | [address] | | | + + + + + | [facility] DEPARTMENT OF | [address] [facility] | [place] [address] | | | PATHOLOGY | [address] | | | + + + + + POTASSIUM, PLASMA (10/21/2007 11:42 AM PDT) + +-------+ + + + | Component | Value | Ref Range | Performed | Pathologist | | | | | At | Signature | + +-------+ + + + | POTASSIUM, | 3.9 [...] At | + + + | New Reference ranges effective 07 for: Sodium, | [facility] | | Potassium, Chloride,Total CO2, Calcium | DEPARTMENT OF | | | PATHOLOGY | + + + + + + + + | Performing | Address | City/State/Zipcode | Phone Number | | Organization | | | | + + + + + | [facility] | [address] [facility] | [place] [address] | | | PATHOLOGY | [address] | | | + + + + + | [facility] | [address] [facility] | [place] [address] | | | PATHOLOGY | [address] | | | + + + + + POTASSIUM, PLASMA (10/21/2007 11:42 AM PDT) + + + + + + | Component | Value | Ref Range | Performed | Pathologist | | | | | At | Signature | + + + + + + | POTASSIUM, | Combined. | 3.4 - 5.0 | [facility] | | | PLASMA | | mmol/L | DEPARTMENT | | | (LAB) | | | OF | | | | | | PATHOLOGY | | + + + + + + + + | Specimen | + + | Blood - Blood | + + + + + | Narrative | Performed At | + + + | New Reference ranges effective 07 for: Sodium, | [facility] | | Potassium, Chloride,Total CO2, Calcium Combined with request same | DEPARTMENT OF | | date/time. | PATHOLOGY | + + + + + + + + | Performing | Address | City/State/Zipcode | Phone Number | | Organization | | | | + + + + + | [facility] | [address] | [place] [address] | | | PATHOLOGY | [address] | | | + + + + + | [facility] OF | [address] | [place] [address] | | | PATHOLOGY | [address] | | | + + + + + SODIUM, PLASMA (10/21/2007 11:42 AM PDT) + +-------+ + + + | Component | Value | Ref Range | Performed | Pathologist | | | | | At | Signature | + +-------+ + + + | SODIUM, | 141 | 134 - 143 | [facility] | | | PLASMA | | mmol/L | DEPARTMENT | | | (LAB) | | | OF | | | | | | PATHOLOGY | | + +-------+ + + + + + | Specimen | + + | Blood - Blood | + + + + + | Narrative | Performed At | + + + | New Reference ranges effective 07 for: Sodium, | [facility] | | Potassium, Chloride,Total CO2, Calcium | DEPARTMENT OF | | | PATHOLOGY | + + + + + + + + | Performing | Address | City/State/Zipcode | Phone Number | | Organization | | | | + + + + + | [facility] DEPARTMENT OF | [address] | [place] [address] | | | PATHOLOGY | [address] | | | + + + + + | [facility] DEPARTMENT OF | [address] | [place] [address] | | | PATHOLOGY | [address] | | | + + + + + RESP CARE THERAPY (10/21/2007 11:14 AM PDT) + + + + + + | Component | Value | Ref Range | Performed | Pathologist | | | | | At | Signature | + + + + + + | RESPIRATORY | Pain Assessment:Patients | | [facility] | | | CARE | pain assessed and was a | | RESPIRATORY | | | | 0 on a scale of | | THERAPY | | | | 0-10.Interventions:Medic | | | | | | ation given via SVN with | | | | | | Ipratropium Florence .5 | | | | | | mg / Albuterol 2.5 | | | | | | mgAssessment:Breath | | | | | | Sounds: wheeze | | | | | | .Cough/Sputum: Patient | | | | | | had a non-productive | | | | | | cough.Outcome after | | | | | | therapy: There was | | | | | | minimal improvement in | | | | | | BS or work ofbreathing | | | | | | after therapy.Treatment | | | | | | Plan:Non protocol | | | | | | patient.Electronically | | | | | | Signed by: Humble | | | | | | Desmond, | | | | + + + + + + + + | Specimen | + + | | + + + + + | Narrative | Performed At | + + + | Ordered by an unspecified provider. | [facility] | | | RESPIRATORY | | | THERAPY | + + + + + + + + | Performing | Address | City/State/Zipcode | Phone Number | | Organization | | | | + + + + + | [facility] RESPIRATORY | [address] | [place], [place] | | | THERAPY | [address] | [address] | | + + + + + | [facility] RESPIRATORY | [address] | [place], [place] | | | THERAPY | [facility] | [address] | | + + + + + RESP CARE THERAPY (10/21/2007 11:00 AM PDT) + + + + + + | Component | Value | Ref Range | Performed | Pathologist | | | | | At | Signature | + + + + + + | RESPIRATORY | Bedside PFTs | | [facility] | | | CARE | PerformedPatient's | | RESPIRATORY | | | | measured FVC: 1.53 | | THERAPY | | | | LPMPatient's FEV1: | | | | | | 1.02Patient's FEV1 FVC: | | | | | | 82Patient's PEF: | | | | | | 107Electronically Signed | | | | | | by: Humble Logan, | | | | + + + + + + + + | Specimen | + + | | + + + + + | Narrative | Performed At | + + + | Ordered by MAGNOLIA DIEGO | [facility] | | | RESPIRATORY | | | THERAPY | + + + + + + + + | Performing | Address | City/State/Zipcode | Phone Number | | Organization | | | | + + + + + | [facility] RESPIRATORY | [address] | [place], [place] | | | THERAPY | [address] | [address] | | + + + + + | [facility] RESPIRATORY | [address] | [place], [place] | | | THERAPY | [address] | [address] | | + + + + + SPECIFIC GRAVITY, BODY FLUID (10/21/2007 10:05 AM PDT) + + + + + + | Component | Value | Ref Range | Performed | Pathologist | | | | | At | Signature | + + + + + + | SPEC GRAV | See cmnt | | [facility] | | | BODY FLUID | | | DEPARTMENT | | | | | | OF | | | | | | PATHOLOGY | | + + + + + + | TYPE OF | See cmnt | | [facility] | | | FLUID | | | DEPARTMENT | | | | | | OF | | | | | | PATHOLOGY | | + + + + + + + + | Specimen | + + | Urine - Urine | + + + + + | Narrative | Performed At | + + + | Incorrect order. * Corrected 10/21/07 19:10: TYPE OF BODY FLUID, | [facility] | | prev report: freewf | DEPARTMENT OF | | | PATHOLOGY | + + + + + + + + | Performing | Address | City/State/Zipcode | Phone Number | | Organization | | | | + + + + + | [facility] | [address] [facility] | [place] [address] | | | PATHOLOGY | [address] | | | + + + + + | [facility] | [address] [facility] | [place] [address] | | | PATHOLOGY | [address] | | | + + + + + RESP CARE THERAPY (10/21/2007 8:00 AM PDT) + + + + + + | Component | Value | Ref Range | Performed | Pathologist | | | | | At | Signature | + + + + + + | RESPIRATORY | Pain Assessment:Patients | | [facility] | | | CARE | pain assessed and was a | | RESPIRATORY | | | | 0 on a scale of | | THERAPY | | | | 0-10.Interventions:Medic | | | | | | ation given via SVN with | | | | | | Ipratropium Florence .5 | | | | | | mg / Albuterol 2.5 | | | | | | mgAssessment:Breath | | | | | | Sounds: clear diminished | | | | | | .Cough/Sputum: Patient | | | | | | had a non-productive | | | | | | cough.Outcome after | | | | | | therapy: There was | | | | | | minimal improvement in | | | | | | BS or work ofbreathing | | | | | | after therapy.Treatment | | | | | | Plan:Non protocol | | | | | | patient.Electronically | | | | | | Signed by: Humble | | | | | | Desmond | | | | + + + + + + + + | Specimen | + + | | + + + + + | Narrative | Performed At | + + + | Ordered by an unspecified provider. | [facility] | | | RESPIRATORY | | | THERAPY | + + + + + + + + | Performing | Address | City/State/Zipcode | Phone Number | | Organization | | | | + + + + + | [facility] RESPIRATORY | [address] | [place], [place] | | | THERAPY | [address] | [address] | | + + + + + | [facility] RESP[facility] | [address] | [place], [place] | | | THERAPY | [address] | [address] | | + + + + + VASC LAB VENOUS DUPLEX LOWER EXTREMITY BILAT COMP (10/21/2007 8:00 AM PDT) + + + + + + | Component | Value | Ref Range | Performed | Pathologist | | | | | At | Signature | + + + + + + | VASC LAB | Med Rec No:[id number] | | | | | VENOUS | Name: | | | | | DUPLEX | GLORIA ADHIKARI | | | | | LOWER | Birthday: 1950 | | | | | EXTREMITY | Sex: F | | | | | BILATERAL | Alias:Patient Location: | | | | | COMPLETE | 7NSIStatus: Inpatient | | | | | | ActiveOrdering | | | | | | Physician: | | | | | | REFUGIO SARGENT | | | | | | VENOUS DUP BILAT CMP LE | | | | | | completed on 10/21/2007 | | | | | | 12:21 PMAccession | | | | | | #[id number]:LOWER | | | | | | EXTREMITY VENOUS STUDY: | | | | | | 10/21/2007 Dictated | | | | | | 10/24/2007INDICATION: | | | | | | Pain.The duplex | | | | | | scanner was used to | | | | | | examine the deep and | | | | | | superficial veinsof both | | | | | | the right and left | | | | | | lower extremities. | | | | | | All vessels werepatent | | | | | | with normal flows in | | | | | | response to augmentation | | | | | | and | | | | | | compressionmaneuvers, | | | | | | and no thrombus was | | | | | | visualized.IMPRESSION:IM | | | | | | PRESSION:Normal venous | | | | | | examination. No | | | | | | evidence for venous | | | | | | thrombosis.END | | | | | | IMPRESSION:END | | | | | | IMPRESSIONI have | | | | | | personally viewed this | | | | | | procedure/exam and | | | | | | reviewed this | | | | | | report.STATUS FINAL / | | | | | | Dr. KALIA ERIC | | | | | | L.STATUS PRELIMINARY - | | | | | | UNSIGNED / O'Barrie Rula | | | | + + + + + + + + | Specimen | + + | | + + + +---------+ + + | Performing | Address | City/State/Zipcode | Phone Number | | Organization | | | | + +---------+ + + | [facility] DEPARTMENT OF | | | | | RADIOLOGY | | | | + +---------+ + + [facility] PORTABLE TRANSCRANIAL DOPPLER COMPLETE (10/21/2007 7:58 AM PDT) + + + + + + | Component | Value | Ref Range | Performed | Pathologist | | | | | At | Signature | + + + + + + | [facility] | Med Rec No:[id number] | | | | | PORTABLE | Name: | | | | | TRANSCRANIA | GLORIA ADHIKARI | | | | | L DOPPLER | Birthday: 1950 | | | | | COMPLETE | Sex: F | | | | | | Alias:Patient Location: | | | | | | 7NSIStatus: Inpatient | | | | | | ActiveOrdering | | | | | | Physician: | | | | | | FRANNIE SARGENTCDANNIE PORT | | | | | | TRANSCRANIAL DOP COMP | | | | | | completed on 10/21/2007 | | | | | | 12:21 PMAccession | | | | | | #[id number]:TRANSCRAN | | | | | | IAL DOPPLER STUDY: | | | | | | 10/21/2007 Dictated | | | | | | 10/24/2007INDICATION: | | | | | | Vasospasm.The duplex | | | | | | scanner was used to | | | | | | examine the ophthalmic, | | | | | | intracranial,internal | | | | | | carotid, middle | | | | | | cerebral, anterior | | | | | | cerebral, | | | | | | posteriorcerebral and | | | | | | intracranial vertebral | | | | | | arteries bilaterally. | | | | | | Thebasilar artery | | | | | | could not be located in | | | | | | this examination, and | | | | | | theextracranial internal | | | | | | carotid arteries were | | | | | | also examined.All of the | | | | | | above-noted vessels | | | | | | were patent with flows | | | | | | in the | | | | | | expecteddirection.The | | | | | | maximum middle cerebral | | | | | | artery flow velocity on | | | | | | the right is 195cm/sec | | | | | | with a mean velocity of | | | | | | 109 cm/sec and a | | | | | | calculatedhemispheric | | | | | | ratio of 2.14. There | | | | | | is also a mean flow | | | | | | velocity of 124cm/sec in | | | | | | the anterior cerebral | | | | | | artery on the right | | | | | | side.On the left, the | | | | | | maximum middle cerebral | | | | | | artery flow velocity is | | | | | | 202cm/sec with a mean | | | | | | velocity of 123 cm/sec | | | | | | and a | | | | | | calculatedhemispheric | | | | | | ratio of | | | | | | 2.73.IMPRESSION:IMPRESSI | | | | | | ON:Transcranial Doppler | | | | | | study with borderline | | | | | | evidence for vasospasm | | | | | | inthe anterior cerebral | | | | | | distribution on the | | | | | | right and in the | | | | | | middlecerebral | | | | | | distribution on the | | | | | | left.END IMPRESSION:END | | | | | | IMPRESSIONI have | | | | | | personally viewed this | | | | | | procedure/exam and | | | | | | reviewed this | | | | | | report.STATUS FINAL / | | | | | | Dr. KALIA ERIC | | | | | | L.STATUS PRELIMINARY - | | | | | | UNSIGNED / OChana Rula | | | | + + + + + + + + | Specimen | + + | | + + + +---------+ + + | Performing | Address | City/State/Zipcode | Phone Number | | Organization | | | | + +---------+ + + | [facility] DEPARTMENT OF | | | | | RADIOLOGY | | | | + +---------+ + + RESP CARE THERAPY (10/21/2007 5:00 AM PDT) + + + + + + | Component | Value | Ref Range | Performed | Pathologist | | | | | At | Signature | + + + + + + | RESPIRATORY | Pain Assessment:Patients | | [facility] | | | CARE | pain assessed and was a | | RESPIRATORY | | | | 0 on a scale of | | THERAPY | | | | 0-10.Interventions:Medic | | | | | | ation given via SVN with | | | | | | Albuterol 2.5 | | | | | | mgAssessment:Breath | | | | | | Sounds: diminished | | | | | | .Cough/Sputum: Patient | | | | | | had a non-productive | | | | | | cough.Outcome after | | | | | | therapy: There was | | | | | | moderate improvement in | | | | | | BS or work ofbreathing | | | | | | after therapy.Treatment | | | | | | Plan:No changes in | | | | | | therapy are | | | | | | indicated.Electronically | | | | | | Signed by: Angela | | | | | | PJ Rm | | | | + + + + + + + + | Specimen | + + | | + + + + + | Narrative | Performed At | + + + | Ordered by an unspecified provider. | [facility] | | | RESPIRATORY | | | THERAPY | + + + + + + + + | Performing | Address | City/State/Zipcode | Phone Number | | Organization | | | | + + + + + | [facility] RESPIRATORY | [address] | [place], [place] | | | THERAPY | [address] | [address] | | + + + + + | [facility] RESP[facility]ORY | [address] [facility] | [place], [place] | | | THERAPY | [address] [facility] | [address] | | + + + + + RESP CARE THERAPY (10/21/2007 4:00 AM PDT) + + + + + + | Component | Value | Ref Range | Performed | Pathologist | | | | | At | Signature | + + + + + + | RESPIRATORY | Simple mask at 6 | | [facility] | | | CARE | LPM.Electronically | | RESPIRATORY | | | | Signed by: Angela | | THERAPY | | | | PJ Rm | | | | + + + + + + + + | Specimen | + + | | + + + + + | Narrative | Performed At | + + + | Ordered by an unspecified provider. | [facility] | | | RESPIRATORY | | | THERAPY | + + + + + + + + | Performing | Address | City/State/Zipcode | Phone Number | | Organization | | | | + + + + + | [facility] RESPIRATORY | [address] [facility] | [place], [place] | | | THERAPY | [address] | [address] | | + + + + + | [facility] RESP[facility]ATORY | [address] [facility] | [place], [place] | | | THERAPY | [address] | [address] | | + + + + + BLOOD GASES, ARTERIAL - LAB (10/21/2007 3:00 AM PDT) + + + + + + | Component | Value | Ref Range | Performed | Pathologist | | | | | At | Signature | + + + + + + | PAT TEMP | 37.500 | Degree C | [facility] | | | ARTERIAL | | | DEPARTMENT | | | | | | OF | | | | | | PATHOLOGY | | + + + + + + | FIO2 | 6L simple mask | | [facility] | | | ARTERIAL | | | DEPARTMENT | | | | | | OF | | | | | | PATHOLOGY | | + + + + + + | PH ARTERIAL | 7.45 (H) | 7.37 - 7.44 | [facility] | | | | | | DEPARTMENT | | | | | | OF | | | | | | PATHOLOGY | | + + + + + + | PCO2 | 33 | 32 - 43 mmHg | [facility] | | | ARTERIAL | | | DEPARTMENT | | | | | | OF | | | | | | PATHOLOGY | | + + + + + + | PO2 | 63 (L) | 72 - 104 mmHg | [facility] | | | ARTERIAL | | | DEPARTMENT | | | | | | OF | | | | | | PATHOLOGY | | + + + + + + | BASE EXCESS | -0.2 | | [facility] | | | ARTERIAL | | | DEPARTMENT | | | | | | OF | | | | | | PATHOLOGY | | + + + + + + | HCO3 | 23 | 21 - 27 mmol/L | [facility] | | | ARTERIAL | | | DEPARTMENT | | | | | | OF | | | | | | PATHOLOGY | | + + + + + + | TOTAL CO2 | 24 | 22 - 28 mmol/L | [facility] | | | ARTERIAL | | | DEPARTMENT | | | | | | OF | | | | | | PATHOLOGY | | + + + + + + | O2 SAT, | 92.1 | 92.0 - 98.0 % | [facility] | | | ARTERIAL | | | DEPARTMENT | | | | | | OF | | | | | | PATHOLOGY | | + + + + + + + + | Specimen | + + | Blood - A Line | + + + + + | Narrative | Performed At | + + + | Arterial Blood Gas | [facility] | | | DEPARTMENT OF | | | PATHOLOGY | + + + + + + + + | Performing | Address | City/State/Zipcode | Phone Number | | Organization | | | | + + + + + | [facility] DEPARTMENT OF | [address] | [place] [address] | | | PATHOLOGY | [address] | | | + + + + + | [facility] DEPARTMENT OF | [address] | [place] [address] | | | PATHOLOGY | [address] | | | + + + + + UA, DIPSTICK ONLY (10/21/2007 2:30 AM PDT) + + + + + [...] + + + + | SPECIFIC | 1.015 | 1.005 - 1.030 | [facility] | | | GRAVITY | | | DEPARTMENT | | | | | | OF | | | | | | PATHOLOGY | | + + + + + + | BLOOD | Large | | [facility] | | | | | | DEPARTMENT | | | | | | OF | | | | | | PATHOLOGY | | + + + + + + | PH(UR) | 6.0 | 5.0 - 8.0 | [facility] | [...] + + + + | NITRITES | Negative | Negative | [facility] | [...] Performed At | + + + | Combined with request same date/time. * Corrected 10/21/07 04:00: | [facility] | | COLOR, prev report: Combined. * Corrected 10/21/07 04:00: APPEARANCE, | DEPARTMENT OF | | prev report: Combined. * Corrected 10/21/07 04:00: GLUCOSE, prev | PATHOLOGY | | report: Combined. * Corrected 10/21/07 04:00: BILIRUBIN, prev report: | | | Combined. * Corrected 10/21/07 04:00: KETONES, prev report: | | | Combined. * Corrected 10/21/07 04:00: SPECIFIC GRAVITY, prev report: | | | Combined. * Corrected 10/21/07 04:00: BLOOD, prev report: Combined. | | | * Corrected 10/21/07 04:00: PH BY DIPSTICK, prev report: Combined. * | | | Corrected 10/21/07 04:00: PROTEIN, prev report: Combined. * | | | Corrected 10/21/07 04:00: UROBILINOGEN, prev report: Combined. * | | | Corrected 10/21/07 04:00: NITRITES, prev report: Combined. * | | | Corrected 10/21/07 04:00: BRANDEN ESTERASE, prev report: Combined. | | + + + + + + + + | Performing | Address | City/State/Zipcode | Phone Number | | Organization | | | | + + + + + | [facility] DEPARTMENT OF | [address] | [place] [address] | | | PATHOLOGY | [address] | | | + + + + + | [facility] DEPARTMENT OF | [address] | [place] [address] | | | PATHOLOGY | [address] | | | + + + + + SPECIFIC GRAVITY, BODY FLUID (10/21/2007 2:30 AM PDT) + +---------+ + + + | Component | Value | Ref Range | Performed | Pathologist | | | | | At | Signature | + +---------+ + + + | SPEC GRAV | Err req | | [facility] | | | BODY FLUID | | | DEPARTMENT | | | | | | OF | | | | | | PATHOLOGY | | + +---------+ + + + | TYPE OF | URN | | [facility] | | | FLUID | URN | | DEPARTMENT | | | | [...] + + + + + | [facility] DEPARTMENT OF | [address] | [place] [address] | | | PATHOLOGY | [address] | | | + + + + + | [facility] OF | [address] [facility] | [place] [address] | | | PATHOLOGY | [address] | | | + + + + + CBC ONLY (10/21/2007 2:00 AM PDT) + + + + + + | Component | Value | Ref Range | Performed | Pathologist | | | | | At | Signature | + + + + + + | WHITE CELL | 15.9 (H) | 4.4 - 11.0 K/cu | [facility] | | | COUNT | | mm | DEPARTMENT | | | | | | OF | | | | | | PATHOLOGY | | + + + + + + | RED CELL | 2.80 (L) | 4.00 - 5.20 | [facility] [...] + + + + | HEMATOCRIT | 26.6 (L) | 36.0 - 46.0 % | [facility] | | | | | | DEPARTMENT | | | | | | OF | | | | | | PATHOLOGY | | + + + + + + | MCV | 95.2 | 80.0 - 96.0 fL | [facility] | | | | | | DEPARTMENT | | | | | | OF | | | | | | PATHOLOGY | | + + + + + + | MCHC | 34.5 | 33.4 - 35.5 | [facility] | | | | | g/dL | DEPARTMENT | | | | | | OF | | | | | | PATHOLOGY | | + + + + + + | RDW | 13.4 | 11.5 - 15.0 % | [facility] | | | | | | DEPARTMENT | | | | | | OF | | | | | | PATHOLOGY | | + + + + + + | PLATELET | 176 | 150 - 400 K/cu | [facility] [...] | + + + + + | [facility] | [address] [facility] | [place] [address] | | | PATHOLOGY | [address] | | | + + + + + | [facility] OF | [facility] | [place] [address] | | | PATHOLOGY | [address] | | | + + + + + MAGNESIUM, PLASMA (10/21/2007 2:00 AM PDT) + +---------+ + + + | Component | Value | Ref Range | Performed | Pathologist | | | | | At | Signature | + +---------+ + + + | MAGNESIUM,P | 1.7 (L) | 1.8 - 2.5 mg/dL | [facility] | | | LASMA | | | DEPARTMENT | | | | | | OF | | | | | | PATHOLOGY | | + +---------+ + + + + + | Specimen | + + | Blood - Blood | + + + + + | Narrative | Performed At | + + + | New Reference ranges effective 07 for: Sodium, | [facility] | | Potassium, Chloride,Total CO2, Calcium | DEPARTMENT OF | | | PATHOLOGY | + + + + + + + + | Performing | Address | City/State/Zipcode | Phone Number | | Organization | | | | + + + + + | [facility] DEPARTMENT OF | [address] | [place] [address] | | | PATHOLOGY | [address] | | | + + + + + | [facility] DEPARTMENT OF | [address] | [place] [address] | | | PATHOLOGY | [address] | | | + + + + + RENAL FUNCTION SET (NA,K,CL,CO2,BUN,CREAT,GLUC,CA,PHOS,ALB ) (10/21/2007 2:00 AM PDT) + +---------+ + + + | Component | Value | Ref Range | Performed | Pathologist | | | | | At | Signature | + +---------+ + + + | GLUCOSE, | 110 (H) | 60 - 99 mg/dL | [facility] | | | PLASMA | | | DEPARTMENT | | | (LAB) | | | OF | | | | | | PATHOLOGY | | + +---------+ + + + | BUN, PLASMA | 7 | 6 - 20 mg/dL | [facility] [...] +---------+ + + + | ALBUMIN, | 2.6 (L) | 3.5 - 4.7 g/dL | [...] + + | SODIUM, | 141 | 134 - 143 | [facility] | [...] + | TOTAL CO2, | 23 | 23 - 31 mmol/L | [facility] | | | PLASMA | | | DEPARTMENT | | | (LAB) | | | OF | | | | | | PATHOLOGY | | + +---------+ + + + + + | Specimen | + + | Blood - Blood | + + + + + | Narrative | Performed At | + + + | New Reference ranges effective 07 for: Sodium, | [facility] | | Potassium, Chloride,Total CO2, Calcium | DEPARTMENT OF | | | PATHOLOGY | + + + + + + + + | Performing | Address | City/State/Zipcode | Phone Number | | Organization | | | | + + + + + | [facility] DEPARTMENT OF | [address] | [place] [address] | | | PATHOLOGY | [address] | | | + + + + + | [facility] DEPARTMENT OF | [address] | [place] [address] | | | PATHOLOGY | [address] | | | + + + + + RESP CARE THERAPY (10/21/2007 1:00 AM PDT) + + + + + + | Component | Value | Ref Range | Performed | Pathologist | | | | | At | Signature | + + + + + + | RESPIRATORY | Pain Assessment:Patients | | [facility] | | | CARE | pain assessed and was a | | RESPIRATORY | | | | 0 on a scale of | | THERAPY | | | | 0-10.Interventions:Medic | | | | | | ation given via SVN with | | | | | | Ipratropium [place] .5 | | | | | | mg / Albuterol 2.5 mg | | | | | | Medication given via | | | | | | SVN with Albuterol 2.5 | | | | | | mgAssessment:Breath | | | | | | Sounds: diminished | | | | | | .Cough/Sputum: Patient | | | | | | had a non-productive | | | | | | cough.Outcome after | | | | | | therapy: There was no | | | | | | improvement in BS or | | | | | | work of breathingafter | | | | | | therapy.Treatment | | | | | | Plan:No changes in | | | | | | therapy are | | | | | | indicated.Electronically | | | | | | Signed by: Angela | | | | | | PJ Rm | | | | + + + + + + + + | Specimen | + + | | + + + + + | Narrative | Performed At | + + + | Ordered by an unspecified provider. | [facility] | | | RESPIRATORY | | | THERAPY | + + + + + + + + | Performing | Address | City/State/Zipcode | Phone Number | | Organization | | | | + + + + + | [facility] RESPIRATORY | [address] [facility] | [place], [place] | | | THERAPY | [facility] | [address] | | + + + + + | [facility] RESPIRATORY | [address] [facility] | [place], [place] | | | THERAPY | [facility] | [address] | | + + + + + X-RAY PORTABLE CHEST 1 VIEW (10/20/2007 11:15 PM PDT) + + + + + + | Component | Value | Ref Range | Performed | Pathologist | | | | | At | Signature | + + + + + + | X-RAY | AP CHEST: 10/20/2007 | | | | | PORTABLE | Dictated | | | | | CHEST 1 | 10/21/2007COMPARISON: | | | | | VIEW | 10/19/2007FINDINGS: | | | | | | The subclavian line is | | | | | | in unchanged | | | | | | position.Endotracheal | | | | | | tube and enteric tube | | | | | | have been removed. | | | | | | There isdevelopment of | | | | | | new patchy opacities | | | | | | within the right lung | | | | | | base. Theremaining | | | | | | lungs are clear. There | | | | | | is blunting of the | | | | | | rightcostophrenic angle. | | | | | | The cardiomediastinal | | | | | | silhouette is | | | | | | normal.There is | | | | | | osteopenia.IMPRESSION:Th | | | | | | ere are ground-glass | | | | | | opacities within the | | | | | | right lung base, | | | | | | likelydue to atelectasis | | | | | | although aspiration or | | | | | | developing pneumonia | | | | | | couldbe considered as | | | | | | well.END IMPRESSIONI | | | | | | have personally viewed | | | | | | this procedure/exam and | | | | | | reviewed this | | | | | | report.STATUS FINAL / | | | | | | Dr. MONTELONGO | | | | | | [facility] PRELIM[facility]ARY | | | | | | - UNSIGNED / | | | | | | JAYDA ROSARIO | | | | + + + + + + + + | Specimen | + + | | + + + +---------+ + + | Performing | Address | City/State/Zipcode | Phone Number | | Organization | | | | + +---------+ + + | [facility] DEPARTMENT OF | | | | | RADIOLOGY | | | | + +---------+ + + SPECIFIC GRAVITY, BODY FLUID (10/20/2007 10:05 PM PDT) + + + + + + | Component | Value | Ref Range | Performed | Pathologist | | | | | At | Signature | + + + + + + | SPEC GRAV | Not Recd | | [facility] | | | BODY FLUID | | | DEPARTMENT | | | | | | OF | | | | | | PATHOLOGY | | + + + + + + | TYPE OF | Not Recd | | [facility] | | | FLUID | | | DEPARTMENT | | | | | | OF | | | | | | PATHOLOGY | | + + + + + + + + | Specimen | + + | Urine - Urine | + + + + + | Narrative | Performed At | + + + | * Corrected 10/21/07 08:24: TYPE OF BODY FLUID, prev report: | [facility] | | freewf | DEPARTMENT OF | | | PATHOLOGY | + + + + + + + + | Performing | Address | City/State/Zipcode | Phone Number | | Organization | | | | + + + + + | [facility] DEPARTMENT OF | [address] [facility] | [place] [address] | | | PATHOLOGY | [address] | | | + + + + + | [facility] DEPARTMENT OF | [address] [facility] | [place] [address] | | | PATHOLOGY | [address] | | | + + + + + POTASSIUM, PLASMA (10/20/2007 8:00 PM PDT) + +-------+ + + + | Component | Value | Ref Range | Performed | Pathologist | | | | | At | Signature | + +-------+ + + + | POTASSIUM, | 3.5 | 3.4 - 5.0 | [facility] | | | PLASMA | | mmol/L | DEPARTMENT | | | (LAB) | | | OF | | | | | | PATHOLOGY | | + +-------+ + + + + + | Specimen | + + | | + + + + + | Narrative | Performed At | + + + | New Reference ranges effective 07 for: Sodium, | [facility] | | Potassium, Chloride,Total CO2, Calcium | DEPARTMENT OF | | | PATHOLOGY | + + + + + + + + | Performing | Address | City/State/Zipcode | Phone Number | | Organization | | | | + + + + + | [facility] DEPARTMENT OF | [address] | [place] [address] | | | PATHOLOGY | [address] | | | + + + + + | [facility] DEPARTMENT OF | [address] | [place] [address] | | | PATHOLOGY | [address] | | | + + + + + POTASSIUM, PLASMA (10/20/2007 8:00 PM PDT) + + + + + + | Component | Value | Ref Range | Performed | Pathologist | | | | | At | Signature | + + + + + + | POTASSIUM, | Combined. | 3.4 - 5.0 | [facility] | | | PLASMA | | mmol/L | DEPARTMENT | | | (LAB) | | | OF | | | | | | PATHOLOGY | | + + + + + + | POTASSIUM | Combined. | | [facility] | | | CMNT | | | DEPARTMENT | | | | | | OF | | | | | | PATHOLOGY | | + + + + + + + + | Specimen | + + | Blood - Blood | + + + + + | Narrative | Performed At | + + + | New Reference ranges effective 07 for: Sodium, | [facility] | | Potassium, Chloride,Total CO2, Calcium Combined with request same | DEPARTMENT OF | | date/time. | PATHOLOGY | + + + + + + + + | Performing | Address | City/State/Zipcode | Phone Number | | Organization | | | | + + + + + | [facility] | [address] [facility] | [place] [address] | | | PATHOLOGY | [address] | | | + + + + + | [facility] | [address] [facility] | [place] [address] | | | PATHOLOGY | [address] | | | + + + + + SODIUM, PLASMA (10/20/2007 8:00 PM PDT) + +---------+ + + + [...] Blood | + + + + + | Narrative | Performed At | + + + | New Reference ranges effective 07 for: Sodium, | [facility] | | Potassium, Chloride,Total CO2, Calcium | DEPARTMENT OF | | | PATHOLOGY | + + + + + + + + | Performing | Address | City/State/Zipcode | Phone Number | | Organization | | | | + + + + + | [facility] | [address] | [place] [address] | | | PATHOLOGY | [address] | | | + + + + + | [facility] | [address] | [place] [address] | | | PATHOLOGY | [address] | | | + + + + + ANESTHESIA/SEDATION (10/20/2007 7:53 PM PDT) + + + | Narrative | Performed At | + + + | | | + + + + + | Procedure Note | + + | Alyssa Liu - 10/20/2007 7:53 PM PDT | + + SPECIFIC GRAVITY, BODY FLUID (10/20/2007 4:05 PM PDT) + +---------+ + + + | Component | Value | Ref Range | Performed | Pathologist | | | | | At | Signature | + +---------+ + + + | SPEC GRAV | Err req | | [facility] | | | BODY FLUID | | | DEPARTMENT | | | | | | OF | | | | | | PATHOLOGY | | + +---------+ + + + | TYPE OF | Err req | | [facility] | | | FLUID | | | DEPARTMENT | | | [...] + + + + + | [facility] DEPARTMENT OF | [address] | [place] [address] | | | PATHOLOGY | [address] | | | + + + + + | [facility] | [address] | [place] [address] | | | PATHOLOGY | [address] | | | + + + + + ECHO PROCEDURE (10/20/2007 12:40 PM PDT) + + + | Narrative | Performed At | + + + | | | + + + + + | Procedure Note | + + | Other, Faculty - 10/20/2007 12:40 PM PDT | + + POTASSIUM, PLASMA (10/20/2007 11:45 AM PDT) + +-------+ + + + | Component | Value | Ref Range | Performed | Pathologist | | | | | At | Signature | + +-------+ + + + | POTASSIUM, | 3.5 | 3.4 - 5.0 | [facility] | | | PLASMA | | mmol/L | DEPARTMENT | | | (LAB) | | | OF | | | | | | PATHOLOGY | | + +-------+ + + + + + | Specimen | + + | | + + + + + | Narrative | Performed At | + + + | New Reference ranges effective 07 for: Sodium, | [facility] | | Potassium, Chloride,Total CO2, Calcium | DEPARTMENT OF | | | PATHOLOGY | + + + + + + + + | Performing | Address | City/State/Zipcode | Phone Number | | Organization | | | | + + + + + | [facility] DEPARTMENT OF | [address] | [place] [address] | | | PATHOLOGY | [address] | | | + + + + + | [facility] DEPARTMENT OF | [address] | [place] [address] | | | PATHOLOGY | [address] | | | + + + + + POTASSIUM, PLASMA (10/20/2007 11:45 AM PDT) + + + + + + | Component | Value | Ref Range | Performed | Pathologist | | | | | At | Signature | + + + + + + | POTASSIUM, | Combined. | 3.4 - 5.0 | [facility] | | | PLASMA | | mmol/L | DEPARTMENT | | | (LAB) | | | OF | | | | | | PATHOLOGY | | + + + + + + | POTASSIUM | Combined. | | [facility] | | | CMNT | | | DEPARTMENT | | | | | | OF | | | | | | PATHOLOGY | | + + + + + + + + | Specimen | + + | Blood - Blood | + + + + + | Narrative | Performed At | + + + | New Reference ranges effective 07 for: Sodium, | [facility] | | Potassium, Chloride,Total CO2, Calcium Combined with request same | DEPARTMENT OF | | date/time. | PATHOLOGY | + + + + + + + + | Performing | Address | City/State/Zipcode | Phone Number | | Organization | | | | + + + + + | [facility] | [address] | [place] [address] | | | PATHOLOGY | [address] | | | + + + + + | [facility] | [address] [place] [address] [address] | [place] [address] | | | PATHOLOGY | [address] | | | + + + + + SODIUM, PLASMA (10/20/2007 11:45 AM PDT) + +---------+ + + + | Component | Value | Ref Range | Performed | Pathologist | | | | | At | Signature | + +---------+ + + + | SODIUM, | 147 (H) | 134 - 143 | [facility] | | | PLASMA | | mmol/L | DEPARTMENT | | | (LAB) | | | OF | | | | | | PATHOLOGY | | + +---------+ + + + + + | Specimen | + + | Blood - Blood | + + + + + | Narrative | Performed At | + + + | New Reference ranges effective 07 for: Sodium, | [facility] | | Potassium, Chloride,Total CO2, Calcium | DEPARTMENT OF | | | PATHOLOGY | + + + + + + + + | Performing | Address | City/State/Zipcode | Phone Number | | Organization | | | | + + + + + | [facility] | [address] [facility] | [place] [address] | | | PATHOLOGY | [address] | | | + + + + + | [facility] | [address] [place] [address] | [place] [address] | | | PATHOLOGY | [address] | | | + + + + + SPECIFIC GRAVITY, BODY FLUID (10/20/2007 10:05 AM PDT) + + + + + + | Component | Value | Ref Range | Performed | Pathologist | | | | | At | Signature | + + + + + + | SPEC GRAV | Not Recd | | [facility] | | | BODY FLUID | | | DEPARTMENT | | | | | | OF | | | | | | PATHOLOGY | | + + + + + + | TYPE OF | URN | | [facility] | | | FLUID | URN | | DEPARTMENT | | | | [...] | + + + + + | [facility] | [address] | [place] [address] | | | PATHOLOGY | [address] | | | + + + + + | [facility] | [address] | [place] [address] | | | PATHOLOGY | [address] | | | + + + + + POTASSIUM, PLASMA (10/20/2007 6:13 AM PDT) + +-------+ + + + | Component | Value | Ref Range | Performed | Pathologist | | | | | At | Signature | + +-------+ + + + | POTASSIUM, | 4.0 [...] At | + + + | New Reference ranges effective 07 for: Sodium, | [facility] | | Potassium, Chloride,Total CO2, Calcium | DEPARTMENT OF | | | PATHOLOGY | + + + + + + + + | Performing | Address | City/State/Zipcode | Phone Number | | Organization | | | | + + + + + | [facility] DEPARTMENT OF | [address] | [place] [address] | | | PATHOLOGY | [address] | | | + + + + + | [facility] OF | [address] | [place] [address] | | | PATHOLOGY | [address] | | | + + + + + POTASSIUM, PLASMA (10/20/2007 6:13 AM PDT) + + + + + + | Component | Value | Ref Range | Performed | Pathologist | | | | | At | Signature | + + + + + + | POTASSIUM, | Combined. | 3.4 - 5.0 | [facility] | | | PLASMA | | mmol/L | DEPARTMENT | | | (LAB) | | | OF | | | | | | PATHOLOGY | | + + + + + + | POTASSIUM | Combined. | | [facility] | | | CMNT | | | DEPARTMENT | | | | | | OF | | | | | | PATHOLOGY | | + + + + + + + + | Specimen | + + | Blood - Blood | + + + + + | Narrative | Performed At | + + + | New Reference ranges effective 07 for: Sodium, | [facility] | | Potassium, Chloride,Total CO2, Calcium Combined with request same | DEPARTMENT OF | | date/time. | PATHOLOGY | + + + + + + + + | Performing | Address | City/State/Zipcode | Phone Number | | Organization | | | | + + + + + | [facility] DEPARTMENT OF | [address] | [place] [address] | | | PATHOLOGY | [address] | | | + + + + + | [facility] DEPARTMENT OF | [address] | [place] [address] | | | PATHOLOGY | [address] | | | + + + + + SODIUM, PLASMA (10/20/2007 6:13 AM PDT) + +---------+ + + + | Component | Value | Ref Range | Performed | Pathologist | | | | | At | Signature | + +---------+ + + + | SODIUM, | 147 (H) | 134 - 143 | [facility] | | | PLASMA | | mmol/L | DEPARTMENT | | | (LAB) | | | OF | | | | | | PATHOLOGY | | + +---------+ + + + + + | Specimen | + + | Blood - Blood | + + + + + | Narrative | Performed At | + + + | New Reference ranges effective 07 for: Sodium, | [facility] | | Potassium, Chloride,Total CO2, Calcium | DEPARTMENT OF | | | PATHOLOGY | + + + + + + + + | Performing | Address | City/State/Zipcode | Phone Number | | Organization | | | | + + + + + | [facility] DEPARTMENT [facility] | [address] | [place] [address] | | | PATHOLOGY | [address] | | | + + + + + | [facility] | [address] | [place] [address] | | | PATHOLOGY | [address] | | | + + + + + VASC LAB PORTABLE TRANSCRANIAL DOPPLER COMPLETE (10/20/2007 2:23 AM PDT) + + + + + + | Component | Value | Ref Range | Performed | Pathologist | | | | | At | Signature | + + + + + + | VASC LAB | Med Rec No:[id number] | | | | | PORTABLE | Name: | | | | | TRANSCRANIA | GLORIA ADHIKARI | | | | | L DOPPLER | Birthday: 1950 | | | | | COMPLETE | Sex: F | | | | | | Alias:Patient Location: | | | | | | 7NSIStatus: Inpatient | | | | | | ActiveOrdering | | | | | | Physician: | | | | | | AGNES SARGENT PORT | | | | | | TRANSCRANIAL DOP COMP | | | | | | completed on 10/20/2007 | | | | | | 6:44 AMAccession | | | | | | #[id number]:TRANSCRAN | | | | | | IAL DOPPLER EVALUATION: | | | | | | 10/20/2007 Dictated | | | | | | 10/20/2007FINDINGS: | | | | | | The transcranial | | | | | | Doppler evaluation is | | | | | | performedbilaterally of | | | | | | the extra- and | | | | | | intracranial internal | | | | | | carotid arteries. The | | | | | | anterior, middle, and | | | | | | posterior cerebral | | | | | | arteries, the | | | | | | vertebralarteries, and | | | | | | the basilar artery. In | | | | | | the right hemisphere, | | | | | | thepatient is noted to | | | | | | have an elevated mean | | | | | | velocity of the | | | | | | anteriorcerebral artery | | | | | | at 153 cm/sec. All | | | | | | remaining mean | | | | | | velocities in theright | | | | | | hemisphere are less than | | | | | | 120 cm/sec. The right | | | | | | middle cerebralartery | | | | | | mean velocity is 117 | | | | | | cm/sec with a | | | | | | hemispheric ratio of | | | | | | 3.34.In the left | | | | | | hemisphere, there is an | | | | | | elevated mean velocity | | | | | | in themiddle cerebral | | | | | | artery at 122 cm/sec. | | | | | | All remaining mean | | | | | | velocitiesin the left | | | | | | hemisphere are less than | | | | | | 120 cm/sec. The | | | | | | lefthemispheric ratio is | | | | | | | | | | | | 2.9.IMPRESSION:IMPRESSIO | | | | | | N:1. The right | | | | | | hemispheric examination | | | | | | is borderline abnormal | | | | | | formiddle cerebral | | | | | | artery vasospasm. The | | | | | | mean velocity of the | | | | | | rightmiddle cerebral | | | | | | artery is less than the | | | | | | threshold criteria | | | | | | forvasospasm, however, | | | | | | the hemispheric ratio | | | | | | slightly exceeds | | | | | | thethreshold criteria | | | | | | for mild vasospasm. | | | | | | There is also evidence | | | | | | ofvasospasm versus | | | | | | hyperdynamic flow in the | | | | | | right anterior | | | | | | cerebralartery.2. The | | | | | | left hemisphere is also | | | | | | borderline abnormal for | | | | | | middlecerebral artery | | | | | | vasospasm. The mean | | | | | | velocity of the left | | | | | | middlecerebral artery | | | | | | slightly exceeds the | | | | | | threshold criteria | | | | | | forvasospasm, however, | | | | | | the hemispheric ratio is | | | | | | slightly less than | | | | | | thethreshold criteria | | | | | | for vasospasm.END | | | | | | IMPRESSION:END | | | | | | IMPRESSIONI have | | | | | | personally viewed this | | | | | | procedure/exam and | | | | | | reviewed this | | | | | | report.STATUS FINAL / | | | | | | Dr. JASPREET ERIC | | | | | | JAMESSTATUS PRELIMINARY | | | | | | - UNSIGNED / Young | | | | | | Elizabeth | | | | + + + + + + + + | Specimen | + + | | + + + +---------+ + + | Performing | Address | City/State/Zipcode | Phone Number | | Organization | | | | + +---------+ + + | [facility] DEPARTMENT OF | | | | | RADIOLOGY | | | | + +---------+ + + RESP CARE THERAPY (10/20/2007 1:05 AM PDT) + + + + + + | Component | Value | Ref Range | Performed | Pathologist | | | | | At | Signature | + + + + + + | RESPIRATORY | Nasal cannula at 3 | | [facility] | | | CARE | LPM.Electronically | | RESPIRATORY | | | | Signed by: Kiera | | THERAPY | | | | Nolan-Lulkiewicz, RT | | | | + + + + + + + + | Specimen | + + | | + + + + + | Narrative | Performed At | + + + | Ordered by an unspecified provider. | [facility] | | | RESPIRATORY | | | THERAPY | + + + + + + + + | Performing | Address | City/State/Zipcode | Phone Number | | Organization | | | | + + + + + | [facility] RES[facility]IR[facility]ORY | [address] | [place], [place] | | | THERAPY | [address] | [address] | | + + + + + | [facility] RES[facility] | [address] | [place], [place] | | | THERAPY | [address] | [address] | | + + + + + CBC ONLY (10/20/2007 1:00 AM PDT) + + + + + + | Component | Value | Ref Range | Performed | Pathologist | | | | | At | Signature | + + + + + + | WHITE CELL | 18.0 (H) | 4.4 - 11.0 K/cu | [facility] | | | COUNT | | mm | DEPARTMENT | | | | | | OF | | | | | | PATHOLOGY | | + + + + + + | RED CELL | 2.93 (L) | 4.00 - 5.20 | [facility] [...] + + + + | HEMATOCRIT | 27.6 (L) | 36.0 - 46.0 % | [facility] | | | | | | DEPARTMENT | | | | | | OF | | | | | | PATHOLOGY | | + + + + + + | MCV | 94.1 | 80.0 - 96.0 fL | [facility] | | | | | | DEPARTMENT | | | | | | OF | | | | | | PATHOLOGY | | + + + + + + | MCHC | 34.2 | 33.4 - 35.5 | [facility] | | | | | g/dL | DEPARTMENT | | | | | | OF | | | | | | PATHOLOGY | | + + + + + + | RDW | 14.0 | 11.5 - 15.0 % | [facility] | | | | | | DEPARTMENT | | | | | | OF | | | | | | PATHOLOGY | | + + + + + + | PLATELET | 186 | 150 - 400 K/cu | [facility] [...] | + + + + + | [facility] | [address] [facility] | [place] [address] | | | PATHOLOGY | [address] | | | + + + + + | [facility] | [address] [facility] | [place] [address] | | | PATHOLOGY | [address] | | | + + + + + MAGNESIUM, PLASMA (10/20/2007 1:00 AM PDT) + +-------+ + + + [...] Blood | + + + + + | Narrative | Performed At | + + + | New Reference ranges effective 07 for: Sodium, | [facility] | | Potassium, Chloride,Total CO2, Calcium | DEPARTMENT OF | | | PATHOLOGY | + + + + + + + + | Performing | Address | City/State/Zipcode | Phone Number | | Organization | | | | + + + + + | [facility] | [address] | [place] [address] | | | PATHOLOGY | [address] | | | + + + + + | [facility] | [address] | [place] [address] | | | PATHOLOGY | [address] | | | + + + + + RENAL FUNCTION SET (NA,K,CL,CO2,BUN,CREAT,GLUC,CA,PHOS,ALB ) (10/20/2007 1:00 AM PDT) + + + + + + | Component | Value | Ref Range | Performed | Pathologist | | | | | At | Signature | + + + + + + | GLUCOSE, | 139 (H) | 60 - 99 [...] + + + + | CREATININE | 0.57 (L) | 0.60 - 1.10 | [facility] | | | PLASMA | | mg/dL | DEPARTMENT | | | (LAB) | | | OF | | | | | | PATHOLOGY | | + + + + + + | ALBUMIN, | 2.5 (L) | 3.5 - 4.7 g/dL | [facility] | | | PLASMA | | | DEPARTMENT | | | (LAB) | | | OF | | | | | | PATHOLOGY | | + + + + + + | CALCIUM, | 7.9 (L) | 8.6 - 10.2 | [facility] | | | PLASMA | | mg/dL | DEPARTMENT | | | (LAB) | | | OF | | | | | | PATHOLOGY | | + + + + + + | PHOSPHORUS, | 3.0 | 2.4 - 4.7 mg/dL | [facility] | | | PLASMA | | | DEPARTMENT | | | (LAB) | | | OF | | | | | | PATHOLOGY | | + + + + + + | SODIUM, | 146 (H) | 134 - 143 | [facility] | | | PLASMA | | mmol/L | DEPARTMENT | | | (LAB) | | | OF | | | | | | PATHOLOGY | | + + + + + + | POTASSIUM, | 3.2 (L) | 3.4 - 5.0 | [facility] | | | PLASMA | | mmol/L | DEPARTMENT | | | (LAB) | | | OF | | | | | | PATHOLOGY | | + + + + + + | CHLORIDE, | 114 (H) | 97 - 108 mmol/L | [...] Blood | + + + + + | Narrative | Performed At | + + + | New Reference ranges effective 07 for: Sodium, | [facility] | | Potassium, Chloride,Total CO2, Calcium | DEPARTMENT OF | | | PATHOLOGY | + + + + + + + + | Performing | Address | City/State/Zipcode | Phone Number | | Organization | | | | + + + + + | [facility] DEPARTMENT OF | [address] | [place] [address] | | | PATHOLOGY | [address] | | | + + + + + | [facility] DEPARTMENT OF | [address] | [place] [address] | | | PATHOLOGY | [address] | | | + + + + + SPECIFIC GRAVITY, BODY FLUID (10/20/2007 12:01 AM PDT) + + + + + + | Component | Value | Ref Range | Performed | Pathologist | | | | | At | Signature | + + + + + + | SPEC GRAV | Not Recd | | [facility] | | | BODY FLUID | | | DEPARTMENT | | | | | | OF | | | | | | PATHOLOGY | | + + + + + + | TYPE OF | URN | | [facility] | | | FLUID | URN | | DEPARTMENT | | | | [...] + + + + + | [facility] DEPARTMENT OF | [facility] | [place] [address] | | | PATHOLOGY | [address] | | | + + + + + | [facility] | [facility] | [place] [address] | | | PATHOLOGY | [address] | | | + + + + + SPECIFIC GRAVITY, BODY FLUID (10/19/2007 10:05 PM PDT) + + + + + + | Component | Value | Ref Range | Performed | Pathologist | | | | | At | Signature | + + + + + + | SPEC GRAV | Not Recd | | [facility] | | | BODY FLUID | | | DEPARTMENT | | | | | | OF | | | | | | PATHOLOGY | | + + + + + + | TYPE OF | Not Recd | | [facility] | | | FLUID | | | DEPARTMENT | | | | | | OF | | | | | | PATHOLOGY | | + + + + + + + + | Specimen | + + | Urine - Urine | + + + + + | Narrative | Performed At | + + + | * Corrected 10/20/07 13:39: TYPE OF BODY FLUID, prev report: | [facility] | | freewf | DEPARTMENT OF | | | PATHOLOGY | + + + + + + + + | Performing | Address | City/State/Zipcode | Phone Number | | Organization | | | | + + + + + | [facility] DEPARTMENT OF | [address] | [place] [address] | | | PATHOLOGY | [address] | | | + + + + + | [facility] DEPARTMENT | [address] | [place] [address] | | | PATHOLOGY | [address] | | | + + + + + POTASSIUM, PLASMA (10/19/2007 5:53 PM PDT) + +-------+ + + + | Component | Value | Ref Range | Performed | Pathologist | | | | | At | Signature | + +-------+ + + + | POTASSIUM, | 3.6 [...] At | + + + | New Reference ranges effective 07 for: Sodium, | [facility] | | Potassium, Chloride,Total CO2, Calcium | DEPARTMENT OF | | | PATHOLOGY | + + + + + + + + | Performing | Address | City/State/Zipcode | Phone Number | | Organization | | | | + + + + + | [facility] DEPARTMENT OF | [address] | [place] [address] | | | PATHOLOGY | [address] | | | + + + + + | [facility] DEPARTMENT OF | [address] | [place] [address] | | | PATHOLOGY | [address] | | | + + + + + POTASSIUM, PLASMA (10/19/2007 5:53 PM PDT) + + + + + + | Component | Value | Ref Range | Performed | Pathologist | | | | | At | Signature | + + + + + + | POTASSIUM, | Combined. | 3.4 - 5.0 | [facility] | | | PLASMA | | mmol/L | DEPARTMENT | | | (LAB) | | | OF | | | | | | PATHOLOGY | | + + + + + + | POTASSIUM | Combined. | | [facility] | | | CMNT | | | DEPARTMENT | | | | | | OF | | | | | | PATHOLOGY | | + + + + + + + + | Specimen | + + | Blood - Blood | + + + + + | Narrative | Performed At | + + + | New Reference ranges effective 07 for: Sodium, | [facility] | | Potassium, Chloride,Total CO2, Calcium Combined with request same | DEPARTMENT OF | | date/time. | PATHOLOGY | + + + + + + + + | Performing | Address | City/State/Zipcode | Phone Number | | Organization | | | | + + + + + | [facility] | [address] | [place] [address] | | | PATHOLOGY | [address] | | | + + + + + | [facility] | [address] | [place] [address] | | | PATHOLOGY | [address] | | | + + + + + SODIUM, PLASMA (10/19/2007 5:53 PM PDT) + +---------+ + + + | Component | Value | Ref Range | Performed | Pathologist | | | | | At | Signature | + +---------+ + + + | SODIUM, | 146 (H) | 134 - 143 | [facility] | | | PLASMA | | mmol/L | DEPARTMENT | | | (LAB) | | | OF | | | | | | PATHOLOGY | | + +---------+ + + + + + | Specimen | + + | Blood - Blood | + + + + + | Narrative | Performed At | + + + | New Reference ranges effective 07 for: Sodium, | [facility] | | Potassium, Chloride,Total CO2, Calcium | DEPARTMENT OF | | | PATHOLOGY | + + + + + + + + | Performing | Address | City/State/Zipcode | Phone Number | | Organization | | | | + + + + + | [facility] DEPARTMENT OF | [address] | [place] [address] | | | PATHOLOGY | [address] | | | + + + + + | [facility] DEPARTMENT OF | [facility] | [place] [address] | | | PATHOLOGY | [address] | | | + + + + + ANESTHESIA/SEDATION (10/19/2007 5:52 PM PDT) + + + | Narrative | Performed At | + + + | | | + + + + + | Procedure Note | + + | Noe Faculty - 10/19/2007 5:52 PM PDT | + + SPECIFIC GRAVITY, BODY FLUID (10/19/2007 4:05 PM PDT) + + + + + + | Component | Value | Ref Range | Performed | Pathologist | | | | | At | Signature | + + + + + + | SPEC GRAV | Not Recd | | [facility] | | | BODY FLUID | | | DEPARTMENT | | | | | | OF | | | | | | PATHOLOGY | | + + + + + + | TYPE OF | Not Recd | | [facility] | | | FLUID | | | DEPARTMENT | | | | | | OF | | | | | | PATHOLOGY | | + + + + + + + + | Specimen | + + | Urine - Urine | + + + + + | Narrative | Performed At | + + + | * Corrected 10/19/07 22:06: TYPE OF BODY FLUID, prev report: | [facility] | | freewf | DEPARTMENT OF | | | PATHOLOGY | + + + + + + + + | Performing | Address | City/State/Zipcode | Phone Number | | Organization | | | | + + + + + | [facility] DEPARTMENT OF | [address] [facility] | [place] [address] | | | PATHOLOGY | [address] | | | + + + + + | [facility] DEPARTMENT OF | [address] [facility] | [place] [address] | | | PATHOLOGY | [address] | | | + + + + + SODIUM, PLASMA (10/19/2007 11:54 AM PDT) + +---------+ + + + | Component | Value | Ref Range | Performed | Pathologist | | | | | At | Signature | + +---------+ + + + | SODIUM, | 150 (H) | 134 - 143 | [facility] | | | PLASMA | | mmol/L | DEPARTMENT | | | (LAB) | | | OF | | | | | | PATHOLOGY | | + +---------+ + + + + + | Specimen | + + | | + + + + + | Narrative | Performed At | + + + | New Reference ranges effective 07 for: Sodium, | [facility] | | Potassium, Chloride,Total CO2, Calcium | DEPARTMENT OF | | | PATHOLOGY | + + + + + + + + | Performing | Address | City/State/Zipcode | Phone Number | | Organization | | | | + + + + + | [facility] DEPARTMENT OF | [address] | [place] [address] | | | PATHOLOGY | [address] | | | + + + + + | [facility] DEPARTMENT OF | [address] | [place] [address] | | | PATHOLOGY | [address] | | | + + + + + POTASSIUM, PLASMA (10/19/2007 11:54 AM PDT) + +-------+ + + + | Component | Value | Ref Range | Performed | Pathologist | | | | | At | Signature | + +-------+ + + + | POTASSIUM, | 3.6 | 3.4 - 5.0 | [facility] | | | PLASMA | | mmol/L | DEPARTMENT | | | (LAB) | | | OF | | | | | | PATHOLOGY | | + +-------+ + + + + + | Specimen | + + | Blood - Blood | + + + + + | Narrative | Performed At | + + + | New Reference ranges effective 07 for: Sodium, | [facility] | | Potassium, Chloride,Total CO2, Calcium | DEPARTMENT OF | | | PATHOLOGY | + + + + + + + + | Performing | Address | City/State/Zipcode | Phone Number | | Organization | | | | + + + + + | [facility] DEPARTMENT OF | [address] | [place] [address] | | | PATHOLOGY | [address] | | | + + + + + | [facility] DEPARTMENT OF | [address] | [place] [address] | | | PATHOLOGY | [address] | | | + + + + + SODIUM, PLASMA (10/19/2007 11:54 AM PDT) + + + + + + | Component | Value | Ref Range | Performed | Pathologist | | | | | At | Signature | + + + + + + | SODIUM, | Combined. | 134 - 143 | [facility] | | | PLASMA | | mmol/L | DEPARTMENT | | | (LAB) | | | OF | | | | | | PATHOLOGY | | + + + + + + + + | Specimen | + + | Blood - Blood | + + + + + | Narrative | Performed At | + + + | New Reference ranges effective 07 for: Sodium, | [facility] | | Potassium, Chloride,Total CO2, Calcium Combined with request same | DEPARTMENT OF | | date/time. | PATHOLOGY | + + + + + + + + | Performing | Address | City/State/Zipcode | Phone Number | | Organization | | | | + + + + + | [facility] DEPARTMENT OF | [address] [facility] | [place] [address] | | | PATHOLOGY | [address] | | | + + + + + | [facility] DEPARTMENT OF | [address] [facility] | [place] [address] | | | PATHOLOGY | [address] | | | + + + + + SPECIFIC GRAVITY, BODY FLUID (10/19/2007 10:59 AM PDT) + + + + + + | Component | Value | Ref Range | Performed | Pathologist | | | | | At | Signature | + + + + + + | SPEC GRAV | See cmnt | | [facility] | | | BODY FLUID | | | DEPARTMENT | | | | | | OF | | | | | | PATHOLOGY | | + + + + + + | TYPE OF | See cmnt | | [facility] | | | FLUID | | | DEPARTMENT | | | | | | OF | | | | | | PATHOLOGY | | + + + + + + + + | Specimen | + + | Urine - Urine | + + + + + | Narrative | Performed At | + + + | Ordered incorrectly. * Corrected 10/19/07 22:38: TYPE OF BODY | [facility] | | FLUID, prev report: freewf | DEPARTMENT OF | | | PATHOLOGY | + + + + + + + + | Performing | Address | City/State/Zipcode | Phone Number | | Organization | | | | + + + + + | [facility] DEPARTMENT | [address] [facility] | [place] [address] | | | PATHOLOGY | [address] | | | + + + + + | 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 The | | | | | | distalright | | | | | | intracerebral artery | | | | | | fills out well. The | | | | | | deep cerebral | | | | | | venoussystem and dural | | | | | | sinuses are normal. | | | | | | There is no | | | | | | vasospasm.The left | | | | | | internal carotid artery | | | | | | angiogram, intracranial | | | | | | circulation,demonstrates | | | | | | very slow flow of the | | | | | | distal anterior cerebral | | | | | | artery,probably by | | | | | | clips impinging on the | | | | | | artery. There is no | | | | | | evidenceresidual | | | | | | aneurysm.Impression: | | | | | | Complete occlusion of | | | | | | aneurysms which number | | | | | | two, butocclusion of the | | | | | | anterior communicating | | | | | | artery and very slow | | | | | | flow inthe distal left | | | | | | anterior cerebral | | | | | | artery.Operative | | | | | | report:Preoperative | | | | | | diagnosis: Subarachnoid | | | | | | hemorrhage, | | | | | | anteriorcommunicating | | | | | | artery | | | | | | aneurysmsPostoperative | | | | | | diagnosis: SameSurgeon: | | | | | | Bob Peraza, | | | | | | MMarine, PhD.[employer] | | | | | | surgeon: Peter Urbina | | | | | | MDAnesthesia: General | | | | | | endotrachealDuration of | | | | | | procedure: 1.5 | | | | | | hoursOperation No. 1: | | | | | | Surgical catheterization | | | | | | of right femoral | | | | | | arteryOperation No. 2: | | | | | | Catheterization of | | | | | | thoracic aortic | | | | | | archOperation No. 3: | | | | | | Catheterization of left | | | | | | common carotid | | | | | | arteryOperation No. 4: | | | | | | Selective | | | | | | catheterization of left | | | | | | internal carotidartery | | | | | | and angiography in the | | | | | | AP and lateral | | | | | | projections and | | | | | | 3-DOperation No. 5: | | | | | | Catheterization of the | | | | | | innominate | | | | | | arteryOperation No. 6: | | | | | | Catheterization of right | | | | | | common carotid | | | | | | arteryOperation No. 7: | | | | | | Selective | | | | | | catheterization of right | | | | | | internal carotidartery | | | | | | and angiography of the | | | | | | intracranial circulation | | | | | | in the AP andlateral | | | | | | projectionsDescription | | | | | | of procedure:The patient | | | | | | was taken to the | | | | | | neuroangiography suite | | | | | | and nahed supineon the | | | | | | table. A 19 guage | | | | | | single puncture needle | | | | | | was introduced intothe | | | | | | and 3-D femoral artery. | | | | | | A5-Kosovan Justin was | | | | | | navigated and over | | | | | | aBentson guidewire. | | | | | | Selective | | | | | | catheterization was | | | | | | performed as listedabove | | | | | | without difficulty. | | | | | | The arteriotomy site | | | | | | was closed withmanual | | | | | | pressure. I was | | | | | | present and supervised | | | | | | the procedure aslisted | | | | | | above.STATUS FINAL / Dr. | | | | | | STU Orozco | | | | + + + + + + + + | Specimen | + + | | + + + +---------+ + + | Performing | Address | City/State/Zipcode | Phone Number | | Organization | | | | + +---------+ + + | [facility] DEPARTMENT OF | | | | | RADIOLOGY | | | | + +---------+ + + GRAM SMEAR ONLY, STAT (10/19/2007 6:01 AM PDT) + + + + + [...] + + + + | SMEAR | Specimen | | [facility] | | | PREPARATION | bloody/cloudy;cytospin | | DEPARTMENT | | | | diluted | | OF | | | | [...] DEPARTMENT OF | [address] | [place] [address] | | | PATHOLOGY | [address] | | | + + + + + | [facility] DEPARTMENT OF | [address] | [place], [place] [address] | | | PATHOLOGY | [address] | | | + + + + + CSF INFO PANEL (10/19/2007 6:01 AM PDT) + + + + + + | Component | Value | Ref Range | Performed | Pathologist | | | | | At | Signature | + + + + + + | CSF | Bloody | Clear | [facility] | | | APPEARANCE | | | DEPARTMENT | | | | | | OF | | | | | | PATHOLOGY | | + + + + + + | CSF COLOR | Sl Xantho | Colorless | [facility] | | | [...] Performed At | + + + | WBC Phoned Readback. | [facility] | | | DEPARTMENT OF | | | PATHOLOGY | + + + + + + + + | Performing | Address | City/State/Zipcode | Phone Number | | Organization | | | | + + + + + | [facility] DE[facility]MENT OF | [address] [facility] | [place] [address] | | | PATHOLOGY | [address] | | | + + + + + | [facility] DEPARTMENT OF | [address] [facility] | [place] [address] | | | PATHOLOGY | [address] | | | + + + + + CELL COUNT DIFF, CSF (10/19/2007 6:01 AM PDT) + +---------+ + + + | Component | Value | Ref Range | Performed | Pathologist | | | | | At | Signature | + +---------+ + + + | CSF WBC | 689 (*) | <6 /cu mm | [facility] | | | | | | DEPARTMENT | | | | | | OF | | | | | | PATHOLOGY | | + +---------+ + + + | CSF RBC | [id number] | /cu mm | [facility] | | [...] +---------+ + + + | NEUTROPHIL( | 94 (H) | <7 % | [facility] | | | CSF) | | | DEPARTMENT | | | | | | OF | | | | | | PATHOLOGY | | + +---------+ + + + | LYMPHOCYTES | 6 (L) | 40 - 80 % | [facility] | | | (CSF) | | | DEPARTMENT | | | | | | OF | | | | | | PATHOLOGY | | + +---------+ + + + + + | Specimen | + + | Cerebrospinal fluid | + + + + + | Narrative | Performed At | + + + | WBC Phoned Readback. | [facility] | | | DEPARTMENT OF | | | PATHOLOGY | + + + + + + + + | Performing | Address | City/State/Zipcode | Phone Number | | Organization | | | | + + + + + | [facility] | [address] | [place] [address] | | | PATHOLOGY | [address] | | | + + + + + | [facility] DEPARTMENT | [address] | [place] [address] | | | PATHOLOGY | [address] | | | + + + + + PROTEIN, CSF (10/19/2007 6:01 AM PDT) + +---------+ + + + | Component | Value | Ref Range | Performed | Pathologist | | | | | At | Signature | + +---------+ + + + | TOTAL | 298 (H) | 15 - 45 mg/dL | [facility] | | | PROTEIN CSF | | | DEPARTMENT | | | | | | OF | | | | | | PATHOLOGY | | + +---------+ + + + + + | Specimen | + + | Cerebrospinal fluid | + + + + + | Narrative | Performed At | + + + | WBC Phoned Readback. | [facility] | | | DEPARTMENT OF | | | PATHOLOGY | + + + + + + + + | Performing | Address | City/State/Zipcode | Phone Number | | Organization | | | | + + + + + | [facility] | [address] | [place] [address] | | | PATHOLOGY | [address] | | | + + + + + | [facility] DEPARTMENT | [address] | [place] [address] | | | PATHOLOGY | [address] | | | + + + + + GLUCOSE, CSF (10/19/2007 6:01 AM PDT) + +--------+ + + + | Component | Value | Ref Range | Performed | Pathologist | | | | | At | Signature | + +--------+ + + + | GLUCOSE CSF | 79 (H) | 40 - 70 mg/dL | [facility] | | | | | | DEPARTMENT | | | | | | OF | | | | | | PATHOLOGY | | + +--------+ + + + + + | Specimen | + + | Cerebrospinal fluid | + + + + + | Narrative | Performed At | + + + | WBC Phoned Readback. | [facility] | | | DEPARTMENT OF | | | PATHOLOGY | + + + + + + + + | Performing | Address | City/State/Zipcode | Phone Number | | Organization | | | | + + + + + | [facility] DEPARTMENT OF | [address] [facility] | [place] [address] | | | PATHOLOGY | [address] | | | + + + + + | [facility] DEPARTMENT OF | [address] [facility] | [place] [address] | | | PATHOLOGY | [address] | | | + + + + + CULTURE, CSF BACTI (10/19/2007 6:01 AM PDT) + + + + + + | Component | Value | Ref Range | Performed | Pathologist | | | | | At | Signature | + + + + + + | SOURCE BODY | Ventricular Fluid | | | | | SITE | Cerebrospinal Fluid | | | | + + + + + + | CULTURE | CSF Culture | | | | | RESULT | | | | | | | Source...............: | | | | | | Ventricular Fluid | | | | | | Cerebrospinal Fluid RLB | | | | | | Gram Stain...........: | | | | | | Gram smear performed at | | | | | | [facility]. Culture: | | | | | | Final Report: No | | | | | | growth after 3 days. | | | | | | Final ReportComment: | | | | | | Test performed at [facility] | | | | | | [facility] | | | | | | Laboratory. | | | | + + + + + + + + | Specimen | + + | Cerebrospinal fluid | | - Ventricular Fluid | + + + + + + + | Performing | Address | City/State/Zipcode | Phone Number | | Organization | | | | + + + + + | [facility] | [address] | [place] [address] | | | LAB-MICRO | | | | + + + + + X-RAY PORTABLE CHEST 1 VIEW (10/19/2007 4:46 AM PDT) + + + + + + | Component | Value | Ref Range | Performed | Pathologist | | | | | At | Signature | + + + + + + | X-RAY | Portable | | | | | PORTABLE | chest.Comparison | | | | | CHEST 1 | yesterday.Resolution of | | | | | VIEW | upper lobe atelectasis. | | | | | | ET tube remains in | | | | | | place.Left subclavian | | | | | | line and NG tube are | | | | | | again noted. No | | | | | | pneumothorax.Cardia | | | | | | mediastinal contours | | | | | | normal.IMPRESSION:1. | | | | | | Clear lungs without | | | | | | pneumothorax. Support | | | | | | equipment as beforeI | | | | | | have personally viewed | | | | | | this procedure/exam and | | | | | | reviewed this | | | | | | report.STATUS FINAL / | | | | | | Dr. SANGEETHA CAMPBELL | | | | + + + + + + + + | Specimen | + + | | + + + +---------+ + + | Performing | Address | City/State/Zipcode | Phone Number | | Organization | | | | + +---------+ + + | [facility] DEPARTMENT OF | | | | | RADIOLOGY | | | | + +---------+ + + VASC LAB PORTABLE CAROTID DUPLEX COMPLETE BILATERAL (10/19/2007 4:27 AM PDT) + + + + + + | Component | Value | Ref Range | Performed | Pathologist | | | | | At | Signature | + + + + + + | VASC LAB | Med Rec No:[id number] | | | | | PORTABLE | Name: | | | | | CAROTID | GLORIA ADHIKARI | | | | | DUPLEX | Birthday: 1950 | | | | | COMPLETE | Sex: F | | | | | BILATERAL | Alias:Patient Location: | | | | | | 7NSIStatus: Inpatient | | | | | | ActiveOrdering | | | | | | Physician: | | | | | | ACLANDOGAN,VACARBIPVL | | | | | | PORT CAROTID DUPLEX COMP | | | | | | BI completed on | | | | | | 10/19/2007 7:08 | | | | | | AMAccession | | | | | | #[id number]:CEREBROVA | | | | | | SCULAR DUPLEX | | | | | | EXAMINATION: | | | | | | 10/19/2007 Dictated | | | | | | 10/19/2007FINDINGS: | | | | | | Arm blood pressures | | | | | | are 104/56 bilaterally. | | | | | | There isminimal plaque | | | | | | at the carotid | | | | | | bifurcations | | | | | | bilaterally. There | | | | | | areflow disturbances | | | | | | during systole in the | | | | | | internal and external | | | | | | carotidarteries | | | | | | bilaterally without | | | | | | velocity acceleration. | | | | | | Both vertebralarteries | | | | | | are patent with | | | | | | antegrade | | | | | | flow.IMPRESSION:There is | | | | | | less than 50% stenosis | | | | | | in the internal and | | | | | | external carotidarteries | | | | | | bilaterally. The | | | | | | vertebral arteries | | | | | | appear | | | | | | normalbilaterally.END | | | | | | IMPRESSIONI have | | | | | | personally viewed this | | | | | | procedure/exam and | | | | | | reviewed this | | | | | | report.STATUS FINAL / | | | | | | Dr. JASPREET ERIC | | | | | | JAMESSTATUS PRELIMINARY | | | | | | - UNSIGNED / René | | | | | | [place] | | | | + + + + + + + + | Specimen | + + | | + + + +---------+ + + | Performing | Address | City/State/Zipcode | Phone Number | | Organization | | | | + +---------+ + + | [facility] | | | | | RADIOLOGY | | | | + +---------+ + + VASC LAB PORTABLE TRANSCRANIAL DOPPLER COMPLETE (10/19/2007 4:27 AM PDT) + + + + + + | Component | Value | Ref Range | Performed | Pathologist | | | | | At | Signature | + + + + + + | VASC LAB | Med Rec No:[id number] | | | | | PORTABLE | Name: | | | | | TRANSCRANIA | ONOFREGLORIA | | | | | L DOPPLER | Birthday: 1950 | | | | | COMPLETE | Sex: F | | | | | | Alias:Patient Location: | | | | | | 7NSIStatus: Inpatient | | | | | | ActiveOrdering | | | | | | Physician: | | | | | | AGNES SARGENT PORT | | | | | | TRANSCRANIAL DOP COMP | | | | | | completed on 10/19/2007 | | | | | | 7:08 AMAccession | | | | | | #[id number]:TRANSCRAN | | | | | | IAL DOPPLER EVALUATION: | | | | | | 10/19/2007 Dictated | | | | | | 10/19/2007FINDINGS: A | | | | | | transcranial Doppler | | | | | | evaluation is performed | | | | | | bilaterallyof the extra- | | | | | | and intracranial | | | | | | internal carotid | | | | | | arteries, theanterior, | | | | | | middle, and posterior | | | | | | cerebral arteries, the | | | | | | vertebralarteries, and | | | | | | the basilar artery. In | | | | | | both hemispheres all | | | | | | meanvelocities are less | | | | | | than 120 cm/sec. The | | | | | | right middle | | | | | | cerebralartery mean | | | | | | velocity is 85 cm/sec | | | | | | with a hemispheric ratio | | | | | | of 2.57.The left middle | | | | | | cerebral artery mean | | | | | | velocity is 98 cm/sec | | | | | | with ahemispheric ratio | | | | | | of 3.06.IMPRESSION:The | | | | | | right hemispheric | | | | | | examination is normal | | | | | | with no evidence | | | | | | ofintracerebral | | | | | | vasospasm or stenosis. | | | | | | The left | | | | | | hemisphericexamination | | | | | | is borderline abnormal | | | | | | for middle cerebral | | | | | | arteryvasospasm. The | | | | | | mean velocity of the | | | | | | left middle cerebral | | | | | | artery lessthan the | | | | | | threshold criteria for | | | | | | vasospasm, however, the | | | | | | hemisphericratio | | | | | | slightly exceeds the | | | | | | threshold criteria for | | | | | | mild vasospasm.END | | | | | | IMPRESSIONI have | | | | | | personally viewed this | | | | | | procedure/exam and | | | | | | reviewed this | | | | | | report.STATUS FINAL / | | | | | | Dr. JASPREET ERIC | | | | | | JAMESSTATUS PRELIMINARY | | | | | | - UNSIGNED / René | | | | | | [place] | | | | + + + + + + + + | Specimen | + + | | + + + +---------+ + + | Performing | Address | City/State/Zipcode | Phone Number | | Organization | | | | + +---------+ + + | [facility] DEPARTMENT OF | | | | | RADIOLOGY | | | | + +---------+ + + TROPONIN I, PLASMA (10/19/2007 1:49 AM PDT) + + + + + + | Component | Value | Ref Range | Performed | Pathologist | | | | | At | Signature | + + + + + + | TROPONIN I | Combined. | <0.50 ng/mL | [facility] | | | | | | DEPARTMENT | | | | | | OF | | | | | | PATHOLOGY | | + + + + + + + + | Specimen | + + | Blood - Blood | + + + + + | Narrative | Performed At | + + + | Combined with request same date/time. | [facility] | | | DEPARTMENT OF | | | PATHOLOGY | + + + + + + + + | Performing | Address | City/State/Zipcode | Phone Number | | Organization | | | | + + + + + | [facility] DEPARTMENT OF | [address] | [place] [address] | | | PATHOLOGY | [address] | | | + + + + + | [facility] DEPARTMENT OF | [address] | [place] [address] | | | PATHOLOGY | [address] | | | + + + + + BLOOD GASES, ARTERIAL - LAB (10/19/2007 1:48 AM PDT) + + + + + + | Component | Value | Ref Range | Performed | Pathologist | | | | | At | Signature | + + + + + + | PAT TEMP | 36.6 | Degree C | [facility] | | | ARTERIAL | | | DEPARTMENT | | | | | | OF | | | | | | PATHOLOGY | | + + + + + + | FIO2 | .6 | | [facility] | | | ARTERIAL | | | DEPARTMENT | | | | | | OF | | | | | | PATHOLOGY | | + + + + + + | PH ARTERIAL | 7.36 (L) | 7.37 - 7.44 | [facility] | | | | | | DEPARTMENT | | | | | | OF | | | | | | PATHOLOGY | | + + + + + + | PCO2 | 45 (H) | 32 - 43 mmHg | [facility] | | | ARTERIAL | | | DEPARTMENT | | | | | | OF | | | | | | PATHOLOGY | | + + + + + + | PO2 | 143 (H) | 72 - 104 mmHg | [facility] | | | ARTERIAL | | | DEPARTMENT | | | | | | OF | | | | | | PATHOLOGY | | + + + + + + | BASE EXCESS | -0.6 | | [facility] | | | ARTERIAL | | | DEPARTMENT | | | | | | OF | | | | | | PATHOLOGY | | + + + + + + | HCO3 | 25 | 21 - 27 mmol/L | [facility] | | | ARTERIAL | | | DEPARTMENT | | | | | | OF | | | | | | PATHOLOGY | | + + + + + + | TOTAL CO2 | 26 | 22 - 28 mmol/L | [facility] | | | ARTERIAL | | | DEPARTMENT | | | | | | OF | | | | | | PATHOLOGY | | + + + + + + | O2 SAT, | 99.0 (H) | 92.0 - 98.0 % | [facility] | | | ARTERIAL | | | DEPARTMENT | | | | | | OF | | | | | | PATHOLOGY | | + + + + + + + + | Specimen | + + | Blood - Arterial | | line | + + + + + | Narrative | Performed At | + + + | Arterial Blood Gas | [facility] | | | DEPARTMENT OF | | | PATHOLOGY | + + + + + + + + | Performing | Address | City/State/Zipcode | Phone Number | | Organization | | | | + + + + + | [facility] DEPARTMENT OF | [address] | [place] [address] | | | PATHOLOGY | [address] | | | + + + + + | [facility] DEPARTMENT OF | [address] | [place] [address] | | | PATHOLOGY | [address] | | | + + + + + TROPONIN I, PLASMA (10/19/2007 1:45 AM PDT) + + + + + + | Component | Value | Ref Range | Performed | Pathologist | | | | | At | Signature | + + + + + + | TROPONIN I | 0.79 (H) | <0.50 ng/mL | [facility] | | | | | [...] + + + + + | [facility] DEPARTMENT OF | [address] | [place] [address] | | | PATHOLOGY | [address] | | | + + + + + | [facility] DEPARTMENT OF | [address] | [place] [address] | | | PATHOLOGY | [address] | | | + + + + + MAGNESIUM, PLASMA (10/19/2007 1:45 AM PDT) + +-------+ + + + [...] At | + + + | New Reference ranges effective 07 for: Sodium, | [facility] | | Potassium, Chloride,Total CO2, Calcium | DEPARTMENT OF | | | PATHOLOGY | + + + + + + + + | Performing | Address | City/State/Zipcode | Phone Number | | Organization | | | | + + + + + | [facility] | [address] [facility] | [place] [address] | | | PATHOLOGY | [address] | | | + + + + + | [facility] | [address] [facility] [address] [facility] | [place] [address] | | | PATHOLOGY | [address] | | | + + + + + DIFFERENTIAL (10/19/2007 1:45 AM PDT) + + + + + + | Component | Value | Ref Range | Performed | Pathologist | | | | | At | Signature | + + + + + + | NEUTROPHIL | 91 (H) | 50 - 70 % | [facility] | | | % | | | DEPARTMENT | | | | | | OF | | | | | | PATHOLOGY | | + + + + + + | LYMPHOCYTE | 7 (L) | 18 - 42 % | [facility] | | | % | | | DEPARTMENT | | | | | | OF | | | | | | PATHOLOGY | | + + + + + + | MONOCYTE % | 2 | 2 - 8 % | [facility] | | | | | | DEPARTMENT | | | | | | OF | | | | | | PATHOLOGY | | + + + + + + | EOS % | 0 (L) | 1 - 3 % | [facility] | | | | | | DEPARTMENT | | | | | | OF | | | | | | PATHOLOGY | | + + + + + + | BASO % | 0 | <3 % | [facility] | | | | | | DEPARTMENT | | | | | | OF | | | | | | PATHOLOGY | | + + + + + + | NEUTROPHIL | 13.8 (H) | 1.8 - 7.7 K/cu | [facility] | | | # | | mm | DEPARTMENT | | | | | | OF | | | | | | PATHOLOGY | | + + + + + + | LYMPHOCYTE | 1.1 | 1.0 - 4.8 K/cu | [facility] | | | # | | mm | DEPARTMENT | | | | | | OF | | | | | | PATHOLOGY | | + + + + + + | MONOCYTE # | 0.3 | <0.9 K/cu mm | [facility] | | | | | | DEPARTMENT | | | | | | OF | | | | | | PATHOLOGY | | + + + + + + | EOS # | 0.0 | <0.6 K/cu mm | [facility] | | | | | | DEPARTMENT | | | | | | OF | | | | | | PATHOLOGY | | + + + + + + | LUCRECIAO # | 0.0 | <0.3 | [facility] | | | | | [...] | + + + + + | [facility] DEPARTMENT OF | [address] | [place] [address] | | | PATHOLOGY | [address] | | | + + + + + | [facility] DEPARTMENT OF | [address] | [place] [address] | | | PATHOLOGY | [address] | | | + + + + + CBC, WITH DIFFERENTIAL (10/19/2007 1:45 AM PDT) + + + + + + | Component | Value | Ref Range | Performed | Pathologist | | | | | At | Signature | + + + + + + | WHITE CELL | 15.2 (H) | 4.4 - 11.0 K/cu | [facility] | | | COUNT | | mm | DEPARTMENT | | | | | | OF | | | | | | PATHOLOGY | | + + + + + + | RED CELL | 3.24 (L) | 4.00 - 5.20 | [facility] [...] + + + + | HEMATOCRIT | 30.7 (L) | 36.0 - 46.0 % | [...] + + + + | MCHC | 34.5 | 33.4 - 35.5 | [facility] | | | | | g/dL | DEPARTMENT | | | | | | OF | | | | | | PATHOLOGY | | + + + + + + | RDW | 13.5 | 11.5 - 15.0 % | [facility] [...] DEPARTMENT OF | [address] | [place] [address] | | | PATHOLOGY | [address] | | | + + + + + | [facility] DEPARTMENT OF | [address] | [place] [address] | | | PATHOLOGY | [address] | | | + + + + + RENAL FUNCTION SET (NA,K,CL,CO2,BUN,CREAT,GLUC,CA,PHOS,ALB ) (10/19/2007 1:45 AM PDT) + +---------+ + + + | Component | Value | Ref Range | Performed | Pathologist | | | | | At | Signature | + +---------+ + + + | GLUCOSE, | 146 (H) | 60 - 99 mg/dL | [facility] | | | PLASMA | | | DEPARTMENT | | | (LAB) | | | OF | | | | | | PATHOLOGY | | + +---------+ + + + | BUN, PLASMA | 8 | 6 - 20 mg/dL | [facility] [...] +---------+ + + + | PHOSPHORUS, | 3.4 | 2.4 - 4.7 mg/dL | [facility] | | | PLASMA | | | DEPARTMENT | | | (LAB) | | | OF | | | | | | PATHOLOGY | | + +---------+ + + + | SODIUM, | 146 (H) | 134 - 143 | [facility] [...] + | TOTAL CO2, | 24 | 23 - 31 mmol/L | [facility] | | | PLASMA | | | DEPARTMENT | | | (LAB) | | | OF | | | | | | PATHOLOGY | | + +---------+ + + + | CHLORIDE, | 116 (H) | 97 - 108 mmol/L | [facility] | | | PLASMA | | | DEPARTMENT | | | (LAB) | | | OF | | | | | | PATHOLOGY | | + +---------+ + + + + + | Specimen | + + | Blood - Blood | + + + + + | Narrative | Performed At | + + + | New Reference ranges effective 07 for: Sodium, | [facility] | | Potassium, Chloride,Total CO2, Calcium | DEPARTMENT OF | | | PATHOLOGY | + + + + + + + + | Performing | Address | City/State/Zipcode | Phone Number | | Organization | | | | + + + + + | [facility] | [address] [facility] [facility] [facility] [facility] | [place] [address] | | | PATHOLOGY | [address] | | | + + + + + | [facility] | [address] [place] [address] | [place] [address] | | | PATHOLOGY | [address] | | | + + + + + MAGNESIUM, PLASMA (10/19/2007 12:58 AM PDT) + + + + + + | Component | Value | Ref Range | Performed | Pathologist | | | | | At | Signature | + + + + + + | MAGNESIUM,P | Combined. | 1.8 - 2.5 mg/dL | [facility] | | | LASMA | | | DEPARTMENT | | | | | | OF | | | | | | PATHOLOGY | | + + + + + + + + | Specimen | + + | Blood - Blood | + + + + + | Narrative | Performed At | + + + | New Reference ranges effective 07 for: Sodium, | [facility] | | Potassium, Chloride,Total CO2, Calcium Combined with request same | DEPARTMENT OF | | date/time. | PATHOLOGY | + + + + + + + + | Performing | Address | City/State/Zipcode | Phone Number | | Organization | | | | + + + + + | [facility] | [facility] | [place] [address] | | | PATHOLOGY | [address] | | | + + + + + | [facility] DEPARTMENT OF | [facility] | [place] [address] | | | PATHOLOGY | [address] | | | + + + + + SURGICAL PATHOLOGY (10/19/2007) + + + + + + | Component | Value | Ref Range | Performed | Pathologist | | | | | At | Signature | + + + + + + | SURGICAL | SOURCE OF SPECIMEN:A | | [facility] | | | PATHOLOGY | Vascular lesionFinal | | DEPARTMENT | | | | Pathologic Diagnosis:A. | | OF | | | | Vascular lesion, | | PATHOLOGY | | | | excision: - | | | | | | Fragments of hyalinized | | | | | | vascular wall with | | | | | | attached thrombusCase | | | | | | seen by:Steph Ospina | | | | | | Narinder Gaston, Ph.D. / | | | | | | Neuropathologist10/25/2007 | | | | | | I have reviewed all | | | | | | diagnostic slides and | | | | | | have edited the gross | | | | | | and/ormicroscopic | | | | | | portion of this report | | | | | | as part of my pathologic | | | | | | assessment andfinal | | | | | | diagnosis.Clinical | | | | | | History:The patient is a | | | | | | 57-year-old female. 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 The specimen | | | | | | is submitted in | | | | | | toto.Cassette | | | | | | Index:[id number]:labRender | | | | | | ing Diagnostician: | | | | | | Steph Gaston M.D., | | | | | | | | | | | | Ph.D.PathologistElectr | | | | | | onically Signed | | | | | | 10/25/2007 | | | | + + + + + + + + | Specimen | + + | Other | + + + + + + + | Performing | Address | City/State/Zipcode | Phone Number | | Organization | | | | + + + + + | [facility] DEPARTMENT OF | [address] | [place] [address] | | | PATHOLOGY | [address] | | | + + + + + | [facility] DEPARTMENT OF | [address] [facility] | [place] [address] | | | PATHOLOGY | [address] | | | + + + + + CT HEAD WO CONTRAST (10/18/2007 11:31 PM PDT) + + + + + + | Component | Value | Ref Range | Performed | Pathologist | | | | | At | Signature | + + + + + + | CT HEAD WO | Examination: CT, head | | | | | CONTRAST | without | | | | | | contrast.Comparison: CT | | | | | | of the head from | | | | | | 10/18/2007.History: Post | | | | | | operative.Technique: | | | | | | Multiple routine axial | | | | | | CT images were obtained | | | | | | through thebrain without | | | | | | contrast at 4.5 mm | | | | | | collimation.Findings: | | | | | | Patient status post | | | | | | right frontal craniotomy | | | | | | and aneurysmclipping. | | | | | | The aneurysm clip | | | | | | causes metallic streak | | | | | | artifact whichobscures | | | | | | part of the basilar | | | | | | parenchyma. The right | | | | | | frontalintraventricular | | | | | | drainage catheter is | | | | | | stable in position with | | | | | | the tipwas in the third | | | | | | ventricle. Small | | | | | | amount of pneumocephalus | | | | | | is seenwithin the | | | | | | nondependent portions of | | | | | | the extra-axial space. | | | | | | Thesubarachnoid | | | | | | hemorrhage is stable | | | | | | without new hemorrhage | | | | | | identified.The | | | | | | interhemispheric blood | | | | | | is decreased in volume | | | | | | compared with | | | | | | theprevious examination. | | | | | | The ventricular volumes | | | | | | have decreased. | | | | | | Theremainder of the | | | | | | barahona-white | | | | | | differentiation is | | | | | | unchanged. Theethmoid | | | | | | and maxillary sinus | | | | | | opacification stable. | | | | | | The sphenoid | | | | | | sinusopacification, more | | | | | | so on the left, is | | | | | | increased.Impression:1. | | | | | | Status-post aneurysm | | | | | | clipping without | | | | | | evidence of | | | | | | immediatecomplication or | | | | | | new hemorrhage. The | | | | | | right intraventricular | | | | | | drainagecatheter is | | | | | | stable with decreased | | | | | | hydrocephalus.2. The | | | | | | subarachnoid hemorrhage | | | | | | is unchanged and the | | | | | | interhemispherichemorrha | | | | | | ge is mildly decreased.I | | | | | | have personally viewed | | | | | | this procedure/exam and | | | | | | reviewed this | | | | | | report.STATUS FINAL / | | | | | | Dr. NAOMY ESPOSITO | | | | | | L.STATUS PENDING FINAL | | | | | | APPROVAL / Dr. SAMS | | | | | | KAMARI | | | | + + + + + + + + | Specimen | + + | | + + + +---------+ + + | Performing | Address | City/State/Zipcode | Phone Number | | Organization | | | | + +---------+ + + | [facility] DEPARTMENT OF | | | | | RADIOLOGY | | | | + +---------+ + + FREE T4, SERUM (10/18/2007 1:27 PM PDT) + +-------+ + + + | Component | Value | Ref Range | Performed | Pathologist | | | | | At | Signature | + +-------+ + + + | FREE T4, | 0.9 | 0.6 - 1.6 ng/dL | | | | SERUM | | | | | + +-------+ + + + + + | Specimen | + + | Blood - Blood | + + + + + | Narrative | Performed At | + + + | Reference Range change effective | | | 12/12/06 [facility]) | | | [facility] [place] [address] | | | [place] [address] | | + + + + + + + + | Performing | Address | City/State/Zipcode | Phone Number | | Organization | | | | + + + + + | [facility] | [address] | [place] [address] | | | LABORATORY | | | | + + + + + TSH (10/18/2007 1:27 PM PDT) + + + + + + | Component | Value | Ref Range | Performed | Pathologist | | | | | At | Signature | + + + + + + | TSH | 0.23 (L) | 0.34 - 5.60 | | | | | | uIU/ml | | | + + + + + + + + | Specimen | + + | Blood - Blood | + + + + + | Narrative | Performed At | + + + | Low TSH (suggests Hyperthyroid) | | | Reference range change effective 12/12/06 | | | [facility] ([facility] | | | [place] [address] | | | [place] [address] | | + + + + + + + + | Performing | Address | City/State/Zipcode | Phone Number | | Organization | | | | + + + + + | [facility] | [address] | [place] [address] | | | LABORATORY | | | | + + + + + SODIUM, PLASMA (10/18/2007 1:25 PM PDT) + +-------+ + + + | Component | Value | Ref Range | Performed | Pathologist | | | | | At | Signature | + +-------+ + + + | SODIUM, | 141 | 134 - 143 | [facility] | | | PLASMA | | mmol/L | DEPARTMENT | | | (LAB) | | | OF | | | | | | PATHOLOGY | | + +-------+ + + + + + | Specimen | + + | | + + + + + | Narrative | Performed At | + + + | New Reference ranges effective 07 for: Sodium, | [facility] | | Potassium, Chloride,Total CO2, Calcium | DEPARTMENT OF | | | PATHOLOGY | + + + + + + + + | Performing | Address | City/State/Zipcode | Phone Number | | Organization | | | | + + + + + | [facility] DEPARTMENT OF | [address] | [place] [address] | | | PATHOLOGY | [address] | | | + + + + + | [facility] DEPARTMENT OF | [address] | [place] [address] | | | PATHOLOGY | [address] | | | + + + + + POTASSIUM, PLASMA (10/18/2007 1:25 PM PDT) + +-------+ + + + | Component | Value | Ref Range | Performed | Pathologist | | | | | At | Signature | + +-------+ + + + | POTASSIUM, | 4.2 [...] At | + + + | New Reference ranges effective 07 for: Sodium, | [facility] | | Potassium, Chloride,Total CO2, Calcium | DEPARTMENT OF | | | PATHOLOGY | + + + + + + + + | Performing | Address | City/State/Zipcode | Phone Number | | Organization | | | | + + + + + | [facility] DEPARTMENT | [address] | [place] [address] | | | PATHOLOGY | [address] | | | + + + + + | [place] DEPARTMENT OF | [address] | [place] [address] | | | PATHOLOGY | [address] | | | + + + + + TROPONIN I, PLASMA (10/18/2007 1:25 PM PDT) + + + + + + | Component | Value | Ref Range | Performed | Pathologist | | | | | At | Signature | + + + + + + | TROPONIN I | 2.26 (H) | <0.50 ng/mL | [facility] | | | | | [...] + | [facility] DEPARTMENT OF | [address] [facility] | [place] [address] | | | PATHOLOGY | [address] | | | + + + + + | [facility] DEPARTMENT OF | [address] [facility] | [place] [address] | | | PATHOLOGY | [address] | | | + + + + + POTASSIUM, PLASMA (10/18/2007 1:01 PM PDT) + + + + + + | Component | Value | Ref Range | Performed | Pathologist | | | | | At | Signature | + + + + + + | POTASSIUM, | Combined. | 3.4 - 5.0 | [facility] | | | PLASMA | | mmol/L | DEPARTMENT | | | (LAB) | | | OF | | | | | | PATHOLOGY | | + + + + + + + + | Specimen | + + | Blood - Blood | + + + + + | Narrative | Performed At | + + + | New Reference ranges effective 07 for: Sodium, | [facility] | | Potassium, Chloride,Total CO2, Calcium Combined with request same | DEPARTMENT OF | | date/time. | PATHOLOGY | + + + + + + + + | Performing | Address | City/State/Zipcode | Phone Number | | Organization | | | | + + + + + | [facility] DEPARTMENT OF | [address] | [place] [address] | | | PATHOLOGY | [address] | | | + + + + + | [facility] | [facility] [address] | [place] [address] | | | PATHOLOGY | [address] | | | + + + + + SODIUM, PLASMA (10/18/2007 1:00 PM PDT) + + + + + + | Component | Value | Ref Range | Performed | Pathologist | | | | | At | Signature | + + + + + + | SODIUM, | Combined. | 134 - 143 | [facility] | | | PLASMA | | mmol/L | DEPARTMENT | | | (LAB) | | | OF | | | | | | PATHOLOGY | | + + + + + + + + | Specimen | + + | Blood - Blood | + + + + + | Narrative | Performed At | + + + | New Reference ranges effective 07 for: Sodium, | [facility] | | Potassium, Chloride,Total CO2, Calcium Combined with request same | DEPARTMENT OF | | date/time. | PATHOLOGY | + + + + + + + + | Performing | Address | City/State/Zipcode | Phone Number | | Organization | | | | + + + + + | [facility] | [address] [facility] | [place] [address] | | | PATHOLOGY | [address] | | | + + + + + | [facility] | [facility] | [place] [address] | | | PATHOLOGY | [address] | | | + + + + + CEREBRAL 3 VESSELS (10/18/2007 9:35 AM PDT) + + + + + + | Component | Value | Ref Range | Performed | Pathologist | | | | | At | Signature | + + + + + + | CEREBRAL 3 | Date of operation: | | | | | VESSELS | October 18, 2007Clinical | | | | | | history: 57 year old | | | | | | female diagnosis of | | | | | | grade foursubarachnoid | | | | | | hemorrhage is referred | | | | | | to us for diagnostic | | | | | | angiography.Findings: | | | | | | The right CCA injection | | | | | | shows normal carotid | | | | | | bifurcationwith | | | | | | excessive tortuosity. | | | | | | The right ICA | | | | | | injection shows | | | | | | normalsupraclinoid ICA | | | | | | and one in the distal | | | | | | MCA branches. The | | | | | | right [id number] into two | | | | | | branches without | | | | | | visualizing anterior | | | | | | communicatingartery and | | | | | | right at the junction of | | | | | | the 2 branches there | | | | | | isapproximately 2 mm | | | | | | aneurysm. The venous | | | | | | phase and dural sinuses | | | | | | arenormal. Right | | | | | | posterior communicating | | | | | | artery has origin. | | | | | | Theleft CCA injection | | | | | | shows normal carotid | | | | | | bifurcation with | | | | | | significanttortuosity. | | | | | | Left ICA injection | | | | | | shows small anterior | | | | | | communicatingartery with | | | | | | fenestration and | | | | | | possible aneurysm | | | | | | formation. The restof | | | | | | the left anterior | | | | | | intracranial circulation | | | | | | is normal The | | | | | | venousphase and dural | | | | | | sinuses are normal. | | | | | | The left vertebral | | | | | | arteryinjection shows | | | | | | normal posterior | | | | | | circulation without any | | | | | | aneurysm orAVM. There | | | | | | is reflux down to the | | | | | | right vertebral artery | | | | | | and it isnormal. 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 1: | | | | | | Surgical catheterization | | | | | | of right femoral | | | | | | arteryOperation No. 2: | | | | | | Catheterization of | | | | | | thoracic aortic | | | | | | archOperation No. 3: | | | | | | Catheterization of left | | | | | | subclavian | | | | | | arteryOperation No. 4: | | | | | | Selective | | | | | | catheterization of left | | | | | | and vertebralartery and | | | | | | angiography in the AP | | | | | | and lateral projections | | | | | | with refluxdown the | | | | | | right vertebral | | | | | | arteryOperation No. 5: | | | | | | Catheterization of left | | | | | | common carotid artery | | | | | | andangiography of the | | | | | | cervical region in the | | | | | | [place] and lateral | | | | | | projectionsOperation No. | | | | | | 6: Selective | | | | | | catheterization of left | | | | | | internal carotidartery | | | | | | and angiography of the | | | | | | intracranial circulation | | | | | | in the AP andlateral | | | | | | projectionsOperation No. | | | | | | 7: Catheterization of | | | | | | the innominate | | | | | | arteryOperation No. 8: | | | | | | Catheterization of right | | | | | | common carotid | | | | | | arteryangiography of the | | | | | | cervical region in the | | | | | | TRIPP and lateral | | | | | | projectionsOperation No. | | | | | | 9: Selective | | | | | | catheterization of right | | | | | | internal carotidartery | | | | | | and angiography of the | | | | | | intracranial circulation | | | | | | in the AP andlateral | | | | | | projectionsOperation No. | | | | | | 10: Angiogram of right | | | | | | common femoral and iliac | | | | | | arteryDescription of | | | | | | procedure:The patient | | | | | | was taken to the | | | | | | neuroangiography suite | | | | | | and nahed coreason the | | | | | | table. A 19 guage | | | | | | single puncture needle | | | | | | was introduced intothe | | | | | | right femoral artery. | | | | | | A5-Kosovan Justin was | | | | | | navigated and over | | | | | | aBentson wire. | | | | | | Selective | | | | | | catheterization was | | | | | | performed as listedabove | | | | | | without difficulty. | | | | | | The arteriotomy site | | | | | | was closed | | | | | | withstarclose. I | | | | | | performed the procedure | | | | | | as listed above.STATUS | | | | | | FINAL / Dr. BRANDIE MERIDA | | | | + + + + + + + + | Specimen | + + | | + + + +---------+ + + | Performing | Address | City/State/Zipcode | Phone Number | | Organization | | | | + +---------+ + + | [facility] DEPARTMENT OF | | | | | RADIOLOGY | | | | + +---------+ + + BLOOD GASES, ARTERIAL - LAB (10/18/2007 8:20 AM PDT) + + + + + + | Component | Value | Ref Range | Performed | Pathologist | | | | | At | Signature | + + + + + + | PAT TEMP | NG | Degree C | [facility] | | | ARTERIAL | | | DEPARTMENT | | | | | | OF | | | | | | PATHOLOGY | | + + + + + + | FIO2 | 80 | | [facility] | | | ARTERIAL | | | DEPARTMENT | | | | | | OF | | | | | | PATHOLOGY | | + + + + + + | PH ARTERIAL | 7.34 (L) | 7.37 - 7.44 | [facility] | | | | | | DEPARTMENT | | | | | | OF | | | | | | PATHOLOGY | | + + + + + + | PCO2 | 43 | 32 - 43 mmHg | [facility] | | | ARTERIAL | | | DEPARTMENT | | | | | | OF | | | | | | PATHOLOGY | | + + + + + + | PO2 | 207 (H) | 72 - 104 mmHg | [facility] | | | ARTERIAL | | | DEPARTMENT | | | | | | OF | | | | | | PATHOLOGY | | + + + + + + | BASE EXCESS | -2.7 | | [facility] | | | ARTERIAL | | | DEPARTMENT | | | | | | OF | | | | | | PATHOLOGY | | + + + + + + | HCO3 | 23 | 21 - 27 mmol/L | [facility] | | | ARTERIAL | | | DEPARTMENT | | | | | | OF | | | | | | PATHOLOGY | | + + + + + + | TOTAL CO2 | 24 | 22 - 28 mmol/L | [facility] | | | ARTERIAL | | | DEPARTMENT | | | | | | OF | | | | | | PATHOLOGY | | + + + + + + | O2 SAT, | 99.3 (H) | 92.0 - 98.0 % | [facility] | | | ARTERIAL | | | DEPARTMENT | | | | | | OF | | | | | | PATHOLOGY | | + + + + + + + + | Specimen | + + | Blood - A Line | + + + + + | Narrative | Performed At | + + + | Arterial Blood Gas | [facility] | | | DEPARTMENT OF | | | PATHOLOGY | + + + + + + + + | Performing | Address | City/State/Zipcode | Phone Number | | Organization | | | | + + + + + | [facility] | [address] [facility] | [place] [address] | | | PATHOLOGY | [address] | | | + + + + + | [facility] DEPARTMENT OF | [address] [facility] | [place] [address] | | | PATHOLOGY | [address] | | | + + + + + X-RAY PORTABLE CHEST 1 VIEW (10/18/2007 7:41 AM PDT) + + + + + + | Component | Value | Ref Range | Performed | Pathologist | | | | | At | Signature | + + + + + + | X-RAY | Portable chest.No | | | | | PORTABLE | comparisons.Heart is | | | | | CHEST 1 | normal in size. ET | | | | | VIEW | tube lies two CM above | | | | | | Elizabeth. Leftsubclavian | | | | | | central line is in | | | | | | distal SVC. Upper lobe | | | | | | paramediastinalpatchy | | | | | | groundglass and linear | | | | | | bandlike opacities are | | | | | | likely due | | | | | | toatelectasis, though | | | | | | concurrent aspiration | | | | | | and/or noncardiogenic | | | | | | edemamay be considered. | | | | | | No pneumothorax | | | | | | seen.IMPRESSION:1. | | | | | | Bilateral upper lobe | | | | | | paramediastinal ground | | | | | | glass and | | | | | | patchyconsolidation | | | | | | probably due to | | | | | | atelectasis though | | | | | | concurrentnoncardiogenic | | | | | | edema/aspiration should | | | | | | be considered as | | | | | | well.Support equipment | | | | | | as above without | | | | | | pneumothorax.I have | | | | | | personally viewed this | | | | | | procedure/exam and | | | | | | reviewed this | | | | | | report.STATUS FINAL / | | | | | | Dr. SANGEETHA CAMPBELL | | | | + + + + + + + + | Specimen | + + | | + + + +---------+ + + | Performing | Address | City/State/Zipcode | Phone Number | | Organization | | | | + +---------+ + + | [facility] DEPARTMENT OF | | | | | RADIOLOGY | | | | + +---------+ + + BASIC METABOLIC SET (NA, K, CL, TCO2, BUN, CR, GLU, CA) (10/18/2007 5:01 AM PDT) + + + + + + | Component | Value | Ref Range | Performed | Pathologist | | | | | At | Signature | + + + + + + | GLUCOSE, | Not Recd | 60 - 99 mg/dL | [facility] | | | PLASMA | | | DEPARTMENT | | | (LAB) | | | OF | | | | | | PATHOLOGY | | + + + + + + | BUN, PLASMA | Not Recd | 6 - 20 mg/dL | [facility] | | | (LAB) | | | DEPARTMENT | | | | | | OF | | | | | | PATHOLOGY | | + + + + + + | CREATININE | Not Recd | 0.60 - 1.10 | [facility] | | | PLASMA | | mg/dL | DEPARTMENT | | | (LAB) | | | OF | | | | | | PATHOLOGY | | + + + + + + | SODIUM, | Not Recd | 134 - 143 | [facility] | | | PLASMA | | mmol/L | DEPARTMENT | | | (LAB) | | | OF | | | | | | PATHOLOGY | | + + + + + + | POTASSIUM, | Not Recd | 3.4 - 5.0 | [facility] | | | PLASMA | | mmol/L | DEPARTMENT | | | (LAB) | | | OF | | | | | | PATHOLOGY | | + + + + + + | CHLORIDE, | Not Recd | 97 - 108 mmol/L | [facility] | | | PLASMA | | | DEPARTMENT | | | (LAB) | | | OF | | | | | | PATHOLOGY | | + + + + + + | TOTAL CO2, | Not Recd | 23 - 31 mmol/L | [facility] | | | PLASMA | | | DEPARTMENT | | | (LAB) | | | OF | | | | | | PATHOLOGY | | + + + + + + | CALCIUM, | Not Recd | 8.6 - 10.2 | [facility] | | | PLASMA | | mg/dL | DEPARTMENT | | | (LAB) | | | OF | | | | | | PATHOLOGY | | + + + + + + + + | Specimen | + + | Blood - Blood | + + + + + | Narrative | Performed At | + + + | New Reference ranges effective 07 for: Sodium, | [facility] | | Potassium, Chloride,Total CO2, Calcium | DEPARTMENT OF | | | PATHOLOGY | + + + + + + + + | Performing | Address | City/State/Zipcode | Phone Number | | Organization | | | | + + + + + | [facility] DEPARTMENT OF | [address] | [place] [address] | | | PATHOLOGY | [address] | | | + + + + + | [facility] DEPARTMENT | [address] | [place] [address] | | | PATHOLOGY | [address] | | | + + + + + INR (10/18/2007 5:01 AM PDT) + + + + + + | Component | Value | Ref Range | Performed | Pathologist | | | | | At | Signature | + + + + + + | INR | Not Recd | 0.90 - 1.20 INR | [facility] [...] | + + + + + | [facility] | [address] [facility] | [place] [address] | | | PATHOLOGY | [address] | | | + + + + + | [facility] | [facility] | [place] [address] | | | PATHOLOGY | [address] | | | + + + + + COMPLETE METABOLIC SET (NA,K,CL,CO2,BUN,CREAT,GLUC,CA,AST,ALT,BILI TOTAL,ALK PHOS,ALB,PROT TOTAL) (10/18/2007 5:01 AM PDT) + + + + + + | Component | Value | Ref Range | Performed | Pathologist | | | | | At | Signature | + + + + + + | GLUCOSE, | Not Recd | 60 - 99 mg/dL | [facility] | | | PLASMA | | | DEPARTMENT | | | (LAB) | | | OF | | | | | | PATHOLOGY | | + + + + + + | BUN, PLASMA | Not Recd | 6 - 20 mg/dL | [facility] | | | (LAB) | | | DEPARTMENT | | | | | | OF | | | | | | PATHOLOGY | | + + + + + + | CREATININE | Not Recd | 0.60 - 1.10 | [facility] | | | PLASMA | | mg/dL | DEPARTMENT | | | (LAB) | | | OF | | | | | | PATHOLOGY | | + + + + + + | TOTAL | Not Recd | 6.1 - 7.9 g/dL | [facility] | | | PROTEIN, | | | DEPARTMENT | | | PLASMA | | | OF | | | (LAB) | | | PATHOLOGY | | + + + + + + | ALBUMIN, | Not Recd | 3.5 - 4.7 g/dL | [facility] | | | PLASMA | | | DEPARTMENT | | | (LAB) | | | OF | | | | | | PATHOLOGY | | + + + + + + | CALCIUM, | Not Recd | 8.6 - 10.2 | [facility] | | | PLASMA | | mg/dL | DEPARTMENT | | | (LAB) | | | OF | | | | | | PATHOLOGY | | + + + + + + | BILIRUBIN | Not Recd | 0.3 - 1.2 mg/dL | [facility] | | | TOTAL | | | DEPARTMENT | | | | | | OF | | | | | | PATHOLOGY | | + + + + + + | ALK PHOS | Not Recd | 42 - 98 U/L | [facility] | | | | | | DEPARTMENT | | | | | | OF | | | | | | PATHOLOGY | | + + + + + + | AST(SGOT) | Not Recd | 15 - 41 U/L | [facility] | | | | | | DEPARTMENT | | | | | | OF | | | | | | PATHOLOGY | | + + + + + + | SODIUM, | Not Recd | 134 - 143 | [facility] | | | PLASMA | | mmol/L | DEPARTMENT | | | (LAB) | | | OF | | | | | | PATHOLOGY | | + + + + + + | POTASSIUM, | Not Recd | 3.4 - 5.0 | [facility] | | | PLASMA | | mmol/L | DEPARTMENT | | | (LAB) | | | OF | | | | | | PATHOLOGY | | + + + + + + | CHLORIDE, | Not Recd | 97 - 108 mmol/L | [facility] | | | PLASMA | | | DEPARTMENT | | | (LAB) | | | OF | | | | | | PATHOLOGY | | + + + + + + | TOTAL CO2, | Not Recd | 23 - 31 mmol/L | [facility] | | | PLASMA | | | DEPARTMENT | | | (LAB) | | | OF | | | | | | PATHOLOGY | | + + + + + + | ALT (SGPT) | Not Recd | 13 - 48 U/L | [facility] | | | | | | DEPARTMENT | | | | | | OF | | | | | | PATHOLOGY | | + + + + + + + + | Specimen | + + | Blood - Blood | + + + + + | Narrative | Performed At | + + + | New Reference ranges effective 07 for: Sodium, | [facility] | | Potassium, Chloride,Total CO2, Calcium | DEPARTMENT OF | | | PATHOLOGY | + + + + + + + + | Performing | Address | City/State/Zipcode | Phone Number | | Organization | | | | + + + + + | [facility] DEPARTMENT OF | [address] | [place] [address] | | | PATHOLOGY | [address] | | | + + + + + | [facility] | [address] | [place] [address] | | | PATHOLOGY | [address] | | | + + + + + CT CTA HEAD WITH CONTRAST (10/18/2007 4:56 AM PDT) + + + + + + | Component | Value | Ref Range | Performed | Pathologist | | | | | At | Signature | + + + + + + | CT CTA HEAD | Examination: CT, head | | | | | W CONTRAST | without contrast. CTA, | | | | | | head with | | | | | | contrast.Comparisons: | | | | | | None available.History: | | | | | | Evaluation of cerebral | | | | | | aneurysm.Technique: | | | | | | Multiple routine axial | | | | | | CT images were obtained | | | | | | through thebrain at 5 mm | | | | | | collimation without | | | | | | contrast. Multiple | | | | | | routine helicalCT images | | | | | | were obtained through | | | | | | the brain after the | | | | | | uneventfulministration | | | | | | of intravenous contrast. | | | | | | Sagittal and | | | | | | coronalreformations were | | | | | | obtained.Findings:Head: | | | | | | Diffuse subarachnoid | | | | | | hyperdense hemorrhage is | | | | | | seen within | | | | | | thebilateral sylvian | | | | | | fissures, basilar | | | | | | cisterns, and | | | | | | parafalcinesubarachnoid | | | | | | spaces. A small amount | | | | | | of anterior | | | | | | callosal/parafalcinehemo | | | | | | rrhage is seen. A | | | | | | small amount of layering | | | | | | hyperdense hemorrhageis | | | | | | seen in the bilateral | | | | | | occipital horns. A | | | | | | right | | | | | | frontalintraventricular | | | | | | shunt catheter is seen | | | | | | with the tip within the | | | | | | thirdventricle passing | | | | | | through the right | | | | | | foramen of Gaines. The | | | | | | lateralventricular | | | | | | volumes are prominent. | | | | | | There is no midline | | | | | | shift. Thevisualized | | | | | | osseous structures are | | | | | | normal except for the | | | | | | craniotomysite. | | | | | | Scattered | | | | | | opacification is seen | | | | | | within the ethmoid | | | | | | andsphenoid air cells | | | | | | with near complete | | | | | | opacification of the | | | | | | rightmaxillary sinus and | | | | | | debris within the | | | | | | nasopharynx consistent | | | | | | withintubation.CTA: A | | | | | | small approximately 2 x | | | | | | 4 mm anterior | | | | | | communicating | | | | | | arteryaneurysm is | | | | | | visualized. No | | | | | | additional aneurysm is | | | | | | seen.Atherosclerotic | | | | | | vascular calcifications | | | | | | are seen within the | | | | | | bilateralcavernous | | | | | | internal carotid | | | | | | arteries. There is a | | | | | | codominant | | | | | | vertebralartery system. | | | | | | No hemodynamically | | | | | | significant stenosis | | | | | | isappreciated. A 2.3 x | | | | | | 1.6 probably enhancing | | | | | | mass is seen within | | | | | | theposterior aspect of | | | | | | the right parotid gland, | | | | | | incompletely | | | | | | evaluated.Impression:1. | | | | | | Anterior communicating | | | | | | artery aneurysm with | | | | | | diffuse | | | | | | subarachnoidhemorrhage | | | | | | with focal parenchymal | | | | | | hemorrhage and a small | | | | | | amount ofdependent | | | | | | intraventricular | | | | | | hemorrhage.2. Right | | | | | | frontal intraventricular | | | | | | drainage catheter | | | | | | withhydrocephalus.3. | | | | | | Right parotid gland | | | | | | mass, incompletely | | | | | | evaluated.I have | | | | | | personally viewed this | | | | | | procedure/exam and | | | | | | reviewed this | | | | | | report.STATUS FINAL / | | | | | | Dr. DOZIER | | | | | | VAISHALISTATUS PENDING | | | | | | FINAL APPROVAL / Dr. | | | | | | LATRELL RADERTUS | | | | | | RESULT MODIFIED / Dr. | | | | | | LATRELL HOPKINSTATUS | | | | | | PENDING FINAL APPROVAL / | | | | | | Dr. LATRELL MCGILL | | | | | | RESULT MODIFIED / Dr. | | | | | | LATRELL HOPKINSTATUS | | | | | | PENDING FINAL APPROVAL / | | | | | | Dr. LATRELL MCGILL | | | | | | PRELIMINARY - UNSIGNED / | | | | | | Dr. LATRELL BENITES | | | | + + + + + + + + | Specimen | + + | | + + + +---------+ + + | Performing | Address | City/State/Zipcode | Phone Number | | Organization | | | | + +---------+ + + | [facility] DEPARTMENT OF | | | | | RADIOLOGY | | | | + +---------+ + + TYPE AND SCREEN (10/18/2007 4:51 AM PDT) + + + + + [...] | + + + + + | [facility] | [address] [facility] | [place] [address] | | | PATHOLOGY | [address] | | | + + + + + | [facility] | [address] [facility] | [place] [address] | | | PATHOLOGY | [address] | | | + + + + + CBC ONLY (10/18/2007 4:51 AM PDT) + + + + + + | Component | Value | Ref Range | Performed | Pathologist | | | | | At | Signature | + + + + + + | RED CELL | 4.73 | 4.00 - 5.20 | [facility] | | | COUNT | | M/cu mm | DEPARTMENT | | | | | | OF | | | | | | PATHOLOGY | | + + + + + + | HEMOGLOBIN | 15.3 | 12.0 - 16.0 | [facility] | | | | | g/dL | DEPARTMENT | | | | | | OF | | | | | | PATHOLOGY | | + + + + + + | HEMATOCRIT | 44.3 | 36.0 - 46.0 % | [facility] | | | | | | DEPARTMENT | | | | | | OF | | | | | | PATHOLOGY | | + + + + + + | MCV | 93.7 | 80.0 - 96.0 fL | [facility] | | | | | | DEPARTMENT | | | | | | OF | | | | | | PATHOLOGY | | + + + + + + | MCHC | 34.6 | 33.4 - 35.5 | [facility] | | | | | g/dL | DEPARTMENT | | | | | | OF | | | | | | PATHOLOGY | | + + + + + + | RDW | 13.6 | 11.5 - 15.0 % | [facility] | | | | | | DEPARTMENT | | | | | | OF | | | | | | PATHOLOGY | | + + + + + + | PLATELET | 340 | 150 - 400 K/cu | [facility] | | | COUNT | | mm | DEPARTMENT | | | | | | OF | | | | | | PATHOLOGY | | + + + + + + | WHITE CELL | 29.6 (H) | 4.4 - 11.0 K/cu | [...] | + + + + + | [facility] | [address] | [place] [address] | | | PATHOLOGY | [address] | | | + + + + + | [facility] | [address] | [place] [address] | | | PATHOLOGY | [address] | | | + + + + + PRODUCT- RED CELLS LEUKOREDUCED (10/18/2007 4:50 AM PDT) + + + + + + | Component | Value | Ref Range | Performed | Pathologist | | | | | At | Signature | + + + + + + | PRODUCT | -3 RED BLOOD | | [facility] | | | DESCRIPTION | CELLS,ADENINE-SALINE | | DEPARTMENT | | | | ADDED,LEUKOCYTES | | OF | | | | REDUCED,15.0 mEq Sodium | | PATHOLOGY | | | | Added | | | | + + + + + + | PRODUCT | [id number] | | [facility] | | | UNIT # | | | DEPARTMENT | | | [...] + + + | STATUS OF | Returned to Blood Bank | | [facility] | | | UNIT | | | DEPARTMENT | | | [...] DEPARTMENT OF | [address] | [place] [address] | | | PATHOLOGY | [address] | | | + + + + + | [facility] | [address] | [place] [address] | | | PATHOLOGY | [address] | | | + + + + + PRODUCT- RED CELLS LEUKOREDUCED (10/18/2007 4:50 AM PDT) + + + + + + | Component | Value | Ref Range | Performed | Pathologist | | | | | At | Signature | + + + + + + | PRODUCT | -1 RED BLOOD | | [facility] | | | DESCRIPTION | CELLS,ADENINE-SALINE | | DEPARTMENT | | | | ADDED,LEUKOCYTES REDUCED | | OF | | | | | | PATHOLOGY | | + + + + + + | PRODUCT | [id number] | | [facility] | | | UNIT # | | | DEPARTMENT | | | [...] + + + | STATUS OF | Returned to Blood Bank | | [facility] | | | UNIT | | | DEPARTMENT | | | [...] | + + + + + | [facility] | [address] [facility] | [place] [address] | | | PATHOLOGY | [address] | | | + + + + + | [facility] DEPARTMENT OF | [facility] | [place] [address] | | | PATHOLOGY | [address] | | | + + + + + TROPONIN I, PLASMA (10/18/2007 4:50 AM PDT) + + + + + + | Component | Value | Ref Range | Performed | Pathologist | | | | | At | Signature | + + + + + + | TROPONIN I | 0.64 (H) | <0.50 ng/mL | [facility] | | | | | | DEPARTMENT | | | | | | OF | | | | | | PATHOLOGY | | + + + + + + + + | Specimen | + + | | + + + + + | Narrative | Performed At | + + + | Phoned Readback. | [facility] | | | DEPARTMENT OF | | | PATHOLOGY | + + + + + + + + | Performing | Address | City/State/Zipcode | Phone Number | | Organization | | | | + + + + + | [facility] DEPARTMENT OF | [address] | [place] [address] | | | PATHOLOGY | [address] | | | + + + + + | [facility] OF | [address] | [place] [address] | | | PATHOLOGY | [address] | | | + + + + + COAGULOPATHY PANEL (INR,APTT,FIBRINOGEN) (10/18/2007 4:50 AM PDT) + + + + + + | Component | Value | Ref Range | Performed | Pathologist | | | | | At | Signature | + + + + + + | INR | 0.98Comment: | 0.90 - 1.20 INR | [facility] | | | | INR Therapeutic ranges [...] + + + + | APTT | 29.9Comment: | 26.0 - 36.0 | [facility] | [...] + + + + | FIBRINOGEN | 432 | 200 - 450 mg/dL | [facility] | | | LEVEL | | | DEPARTMENT | | | [...] + + + + + | [facility] DEPARTMENT OF | [address] | [place] [address] | | | PATHOLOGY | [address] | | | + + + + + | [facility] DEPARTMENT OF | [address] | [place] [address] | | | PATHOLOGY | [address] | | | + + + + + COMPLETE METABOLIC SET (NA,K,CL,CO2,BUN,CREAT,GLUC,CA,AST,ALT,BILI TOTAL,ALK PHOS,ALB,PROT TOTAL) (10/18/2007 4:50 AM PDT) + + + + + + | Component | Value | Ref Range | Performed | Pathologist | | | | | At | Signature | + + + + + + | GLUCOSE, | 195 (H) | 60 - 99 mg/dL | [...] + + + + | CREATININE | 0.74 | 0.60 - 1.10 | [facility] | | | PLASMA | | mg/dL | DEPARTMENT | | | (LAB) | | | OF | | | | | | PATHOLOGY | | + + + + + + | TOTAL | 7.4 | 6.1 - 7.9 g/dL | [facility] | | | PROTEIN, | | | DEPARTMENT | | | PLASMA | | | OF | | | (LAB) | | | PATHOLOGY | | + + + + + + | ALBUMIN, | 4.0 | 3.5 - 4.7 g/dL | [facility] | | | PLASMA | | | DEPARTMENT | | | (LAB) | | | OF | | | | | | PATHOLOGY | | + + + + + + | CALCIUM, | 8.5 (L) | 8.6 - 10.2 | [facility] | | | PLASMA | | mg/dL | DEPARTMENT | | | (LAB) | | | OF | | | | | | PATHOLOGY | | + + + + + + | BILIRUBIN | 1.2 | 0.3 - 1.2 mg/dL | [facility] | | | TOTAL | | | DEPARTMENT | | | | | | OF | | | | | | PATHOLOGY | | + + + + + + | ALK PHOS | 102 (H) | 42 - 98 U/L | [facility] | | | | | | DEPARTMENT | | | | | | OF | | | | | | PATHOLOGY | | + + + + + + | AST(SGOT) | 41 | 15 - 41 U/L | [facility] | | | | | | DEPARTMENT | | | | | | OF | | | | | | PATHOLOGY | | + + + + + + | SODIUM, | 137 | 134 - 143 | [facility] | | | PLASMA | | mmol/L | DEPARTMENT | | | (LAB) | | | OF | | | | | | PATHOLOGY | | + + + + + + | POTASSIUM, | 4.5 | 3.4 - 5.0 | [facility] | | | PLASMA | | mmol/L | DEPARTMENT | | | (LAB) | | | OF | | | | | | PATHOLOGY | | + + + + + + | CHLORIDE, | 102 [...] + + + + + | ALT (SGPT) | 25 | 13 - 48 U/L | [facility] | | | | | | DEPARTMENT | | | | | | OF | | | | | | PATHOLOGY | | + + + + + + | AST CMNT | MOD HEMO | | [facility] | | | | | | DEPARTMENT | | | | | | OF | | | | | | PATHOLOGY | | + + + + + + | POTASSIUM | MOD HEMO | | [facility] | | | CMNT | | | DEPARTMENT | | | | | | OF | | | | | | PATHOLOGY | | + + + + + + | BILI T CMNT | MOD HEMO | | [facility] | | | | | | DEPARTMENT | | | | | | OF | | | | | | PATHOLOGY | | + + + + + + + + | Specimen | + + | Blood - Blood | + + + + + | Narrative | Performed At | + + + | New Reference ranges effective 07 for: Sodium, | [facility] | | Potassium, Chloride,Total CO2, Calcium Sample hemolyzed. Results for | DEPARTMENT OF | | K, Total Bili., Direct Bili., AST, LD, or HDL may be inaccurate. | PATHOLOGY | | Refer to comment under test result. | | + + + + + + + + | Performing | Address | City/State/Zipcode | Phone Number | | Organization | | | | + + + + + | [facility] DEPARTMENT OF | [address] | [place] [address] | | | PATHOLOGY | [address] | | | + + + + + | [facility] DEPARTMENT OF | [address] | [place] [address] | | | PATHOLOGY | [address] | | | + + + + + CBC ONLY (10/18/2007 4:50 AM PDT) + +---------+ + + + | Component | Value | Ref Range | Performed | Pathologist | | | | | At | Signature | + +---------+ + + + | WHITE CELL | Dup req | 4.4 - 11.0 K/cu | [facility] | | | COUNT | | mm | DEPARTMENT | | | | | | OF | | | | | | PATHOLOGY | | + +---------+ + + + | RED CELL | Dup req | 4.00 - 5.20 | [facility] | | | COUNT | | M/cu mm | DEPARTMENT | | | | | | OF | | | | | | PATHOLOGY | | + +---------+ + + + | HEMOGLOBIN | Dup req | 12.0 - 16.0 | [facility] | | | | | g/dL | DEPARTMENT | | | | | | OF | | | | | | PATHOLOGY | | + +---------+ + + + | HEMATOCRIT | Dup req | 36.0 - 46.0 % | [facility] | | | | | | DEPARTMENT | | | | | | OF | | | | | | PATHOLOGY | | + +---------+ + + + | MCV | Dup req | 80.0 - 96.0 fL | [facility] | | | | | | DEPARTMENT | | | | | | OF | | | | | | PATHOLOGY | | + +---------+ + + + | MCHC | Dup req | 33.4 - 35.5 | [facility] | | | | | g/dL | DEPARTMENT | | | | | | OF | | | | | | PATHOLOGY | | + +---------+ + + + | RDW | Dup req | 11.5 - 15.0 % | [facility] | | | | | | DEPARTMENT | | | | | | OF | | | | | | PATHOLOGY | | + +---------+ + + + | PLATELET | Dup req | 150 - 400 K/cu | [facility] [...] + + + + + | [facility] DEPARTMENT OF | [address] | [place] [address] | | | PATHOLOGY | [address] | | | + + + + + | [facility] | [address] [facility] | [place] [address] | | | PATHOLOGY | [address] | | | + + + + + OPERATION RECORD (10/18/2007 12:00 AM PDT) + + + | Narrative | Performed At | + + + | [id number] | | | [id number] | | | [id number] [address] [id number] | | | Date: 10/18/2007 Attending Surgeon: | | | Magnolia Diego M.D. Papier Mache Molder(s): | | | Xochitl Davis M.D. | | | Preoperative Diagnosis(es): Subarachnoid hemorrhage and anterior | | | communicating artery aneurysm. Postoperative Diagnosis(es): | | | Subarachnoid hemorrhage and anterior communicating artery aneurysm. | | | Procedures Performed: 1. Right pterional craniotomy and | | | clipping of anterior communicating artery aneurysm. 2. | | | Intraoperative high-powered microscopic dissection. | | | Anesthesia: General endotracheal anesthesia. Estimated Blood | | | Loss: 300 cc. Complications: None. Findings: The | | | aneurysm was somewhat hard and calcified. It was occluded with 2 | | | right angle clips. There were good Doppler signals in the distal | | | A2s following clipping of the aneurysm. Indications: This | | | is a woman who presented with a severe headache and nausea and | | | vomiting. A CT scan showed a subarachnoid hemorrhage with a | | | significant amount of blood in the tentorium and sylvian fissure. | | | She was indicated for an angiography which showed an anterior | | | communicating artery aneurysm. She was then taken down to the | | | operating room for clipping of her aneurysm. Procedure: The | | | patient was identified and brought to the operating room. General | | | endotracheal anesthesia was induced. The patient's head was | | | placed in Mcghee pins and positioned slightly into the left side. | | | All pressure points were padded. A left semicoronal incision | | | was then clipped, prepped, and draped in the usual fashion. Local | | | was infiltrated with 0.25% Marcaine with epinephrine. The | | | previously marked incision was then opened with a #10 blade. The | | | incision was taken down to the skull, and a myocutaneous flap was | | | turned anteriorly. Preston holes were then placed over the root of | | | the zygoma, the keyhole, and the coronal suture. A pterional flap | | | was then turned. It was then dissected off the dura and lifted. | | | The Anspach drill was then used to drill down the sphenoid wing. | | | Multiple tack-up holes were placed using the Silver Zero bit, and | | | tack-up sutures were placed using 4-0 Surgilon sutures. The dura | | | was then opened in an U-shaped fashion with its base against the | | | sphenoid wing. It was then retracted anteriorly. At this point, | | | the intraoperative microscope was brought in under high-powered | | | intraoperative microscopy. An arachnoid knife was used to open the | | | sylvian fissure. The sylvian fissure was then dissected open using | | | bipolar dissectors. The sylvian fissure opening was taken | | | anteriorly up to the MCA and the carotid. Following this, the | | | brain was gently retracted superiorly with the self-retaining | | | retractors. The arachnoid over the optic nerve was opened using | | | the arachnoid knife, and this opening was extended laterally and | | | medially. This arachnoid was dissected down to the sylvian fissure | | | opening, and the carotid lateral to the optic nerve was identified | | | and dissected back to the bifurcation. The anterior cerebellar | | | artery was then identified at this point and then dissected to the | | | anterior communicating complex. Anterior communicating complex | | | was then dissected at this point, and the aneurysm was also found | | | and dissected. The contralateral A2 was somewhat hard to dissect | | | because it was behind the aneurysm; however, this dissection was | | | completed, and there was good visualization of the aneurysm. Next, | | | temporary clips were placed on the anterior cerebellar arteries, and | | | a right angle clip was used to occlude the aneurysm. There was | | | also a smaller daughter aneurysm located lateral to the mid-aneurysm. | | | This was also occluded using small right angle clip. There was | | | concern that because of the aneurysm was somewhat calcified that | | | the clip may fall off; therefore, a second right angle clip from | | | the opposite direction was placed over the aneurysm. Doppler was | | | used to check. There was no flow within the aneurysm. The | | | aneurysm was opened. There were good Doppler signals in the A1s | | | and A2s distally. Gelfoam and verapamil were used to line the | | | carotids. A Rhoton microdissector was then used to open the lamina | | | terminale. The self-retaining retractors were removed. The dura | | | was closed using 4-0 Surgilon sutures. The bone flap was plated | | | back to the patient's skull using cranial plating system. | | | Temporalis muscle was closed using 0 Vicryl sutures, the galea | | | was closed using 3-0 Vicryl sutures, and the skin was closed using | | | 4-0 Rapide. The wound was dressed with bacitracin. The patient | | | was then taken out of pins, extubated, and taken to recovery. | | | Dr. Magnolia Diego was present for the essential aspects of this case | | | including clipping of the aneurysm. Xochitl | | | Narinder Davis M.D. KG / HS | | | [id number] / [id number] / [id number] / | | | | | + + + + + | Procedure Note | + + | Ryan Howell, Xochitl - 10/18/2007 12:00 AM PDT [id number] | | [id number] [address] | | [id number] [phone] Date: 10/18/2007 Attending Surgeon: | | Magnolia Diego M.D. Papier Mache Molder(s): Xochitl Davis M.D. | | Preoperative Diagnosis(es):Subarachnoid hemorrhage and anterior communicating artery | | aneurysm. Postoperative Diagnosis(es):Subarachnoid hemorrhage and anterior | | communicating artery aneurysm. Procedures Performed:1. Right pterional craniotomy | | and clipping of anterior communicating artery aneurysm.2. Intraoperative | | high-powered microscopic dissection. Anesthesia:General endotracheal anesthesia. | | Estimated Blood Loss:300 cc. Complications:None. Findings:The aneurysm was somewhat | | hard and calcified. It was occluded with 2 rightangle clips. There were good Doppler | | signals in the distal A2s followingclipping of the aneurysm. Indications:This is a | | woman who presented with a severe headache and nausea andvomiting. A CT scan showed a | | subarachnoid hemorrhage with a significantamount of blood in the tentorium and sylvian | | fissure. She was indicatedfor an angiography which showed an anterior communicating | | artery aneurysm.She was then taken down to the operating room for clipping of | | heraneurysm. Procedure:The patient was identified and brought to the operating room. | | Generalendotracheal anesthesia was induced. The patient's head was placed in[place] | | pins and positioned slightly into the left side. All pressurepoints were padded. A | | left semicoronal incision was then clipped, prepped,and draped in the usual fashion. | | Local was infiltrated with 0.25% Marcainewith epinephrine. The previously marked | | incision was then opened with a#10 blade. The incision was taken down to the skull, and | | a myocutaneousflap was turned anteriorly. Preston holes were then placed over the root | | ofthe zygoma, the keyhole, and the coronal suture. A pterional flap was thenturned. It | | was then dissected off the dura and lifted. The Anspach drillwas then used to drill | | down the sphenoid wing. Multiple tack-up holes wereplaced using the Silver Zero bit, | | and tack-up sutures were placed using 4-0Surgilon sutures. The dura was then opened in | | an U-shaped fashion with itsbase against the sphenoid wing. It was then retracted | | anteriorly. At thispoint, the intraoperative microscope was brought in under | | high-poweredintraoperative microscopy. An arachnoid knife was used to open the | | sylvianfissure. The sylvian fissure was then dissected open using bipolardissectors. | | The sylvian fissure opening was taken anteriorly up to the MCAand the carotid. | | Following this, the brain was gently retracted superiorlywith the self-retaining | | retractors. The arachnoid over the optic nerve wasopened using the arachnoid knife, and | | this opening was extended laterallyand medially. This arachnoid was dissected down to | | the sylvian fissureopening, and the carotid lateral to the optic nerve was identified | | anddissected back to the bifurcation. The anterior cerebellar artery was thenidentified | | at this point and then dissected to the anterior communicatingcomplex. Anterior | | communicating complex was then dissected at this point,and the aneurysm was also found | | and dissected. The contralateral A2 wassomewhat hard to dissect because it was behind | | the aneurysm; however, thisdissection was completed, and there was good visualization of | | the aneurysm.Next, temporary clips were placed on the anterior cerebellar arteries, | | gokul right angle clip was used to occlude the aneurysm. There was also asmaller | | daughter aneurysm located lateral to the mid-aneurysm. This wasalso occluded using | | small right angle clip. There was concern that becauseof the aneurysm was somewhat | | calcified that the clip may fall off;therefore, a second right angle clip from the | | opposite direction was placedover the aneurysm. Doppler was used to check. There was | | no flow withinthe aneurysm. The aneurysm was opened. There were good Doppler signals | | inthe A1s and A2s distally. Gelfoam and verapamil were used to line thecarotids. A | | Rhoton microdissector was then used to open the laminaterminale. The self-retaining | | retractors were removed. The dura wasclosed using 4-0 Surgilon sutures. The bone flap | | was plated back to thepatient's skull using cranial plating system. Temporalis muscle | | was closedusing 0 Vicryl sutures, the galea was closed using 3-0 Vicryl sutures, andthe | | skin was closed using 4-0 Rapide. The wound was dressed withbacitracin. The patient | | was then taken out of pins, extubated, and takento recovery. Dr. Magnolia Diego was | | present for the essential aspects of this caseincluding clipping of the aneurysm. | | Narinder Serrano M.D. / [id number] / [id number] / [id number] /D: | | 10/27/2007T: 10/27/2007 | | | | | |Procedure: | |The patient was identified and brought to the operating room. General | |endotracheal anesthesia was induced. The patient's head was placed in | |Mcghee pins and positioned slightly into the left side. All pressure | |points were padded. A left semicoronal incision was then clipped, prepped, | |and draped in the usual fashion. Local was infiltrated with 0.25% Marcaine | |with epinephrine. The previously marked incision was then opened with a | |#10 blade. The incision was taken down to the skull, and a myocutaneous | |flap was turned anteriorly. Preston holes were then placed over the root of | |the zygoma, the keyhole, and the coronal suture. A pterional flap was then | |turned. It was then dissected off the dura and lifted. The Anspach drill | |was then used to drill down the sphenoid wing. Multiple tack-up holes were | |placed using the Silver Zero bit, and tack-up sutures were placed using 4-0 | |Surgilon sutures. The dura was then opened in an U-shaped fashion with its | |base against the sphenoid wing. It was then retracted anteriorly. At this | |point, the intraoperative microscope was brought in under high-powered | |intraoperative microscopy. An arachnoid knife was used to open the sylvian | |fissure. The sylvian fissure was then dissected open using bipolar | |dissectors. The sylvian fissure opening was taken anteriorly up to the MCA | |and the carotid. Following this, the brain was gently retracted superiorly | |with the self-retaining retractors. The arachnoid over the optic nerve was | |opened using the arachnoid knife, and this opening was extended laterally | |and medially. This arachnoid was dissected down to the sylvian fissure | |opening, and the carotid lateral to the optic nerve was identified and | |dissected back to the bifurcation. The anterior cerebellar artery was then | |identified at this point and then dissected to the anterior communicating | |complex. Anterior communicating complex was then dissected at this point, | |and the aneurysm was also found and dissected. The contralateral A2 was | |somewhat hard to dissect because it was behind the aneurysm; however, this | |dissection was completed, and there was good visualization of the aneurysm. | |Next, temporary clips were placed on the anterior cerebellar arteries, and | |a right angle clip was used to occlude the aneurysm. There was also a | |smaller daughter aneurysm located lateral to the mid-aneurysm. This was | |also occluded using small right angle clip. There was concern that because | |of the aneurysm was somewhat calcified that the clip may fall off; | |therefore, a second right angle clip from the opposite direction was placed | |over the aneurysm. Doppler was used to check. There was no flow within | |the aneurysm. The aneurysm was opened. There were good Doppler signals in | |the A1s and A2s distally. Gelfoam and verapamil were used to line the | |carotids. A Rhoton microdissector was then used to open the lamina | |terminale. The self-retaining retractors were removed. The dura was | |closed using 4-0 Surgilon sutures. The bone flap was plated back to the | |patient's skull using cranial plating system. Temporalis muscle was closed | |using 0 Vicryl sutures, the galea was closed using 3-0 Vicryl sutures, and | |the skin was closed using 4-0 Rapide. The wound was dressed with | |bacitracin. The patient was then taken out of pins, extubated, and taken | |to recovery. | | | | | |Dr. Magnolia Diego was present for the essential aspects of this case | |including clipping of the aneurysm. | | | | | | | | | | | | | | | | | |Xochitl Davis M.D. | | | | | | | | | | | | | |Aclan Brandie, M.D. | | | | | |KG / HS | |[id number] / [id number] / [id number] / | | | | | | | | | | | | | | | | | | | | | + + TEACHING PHYSICIAN (10/18/2007 12:00 AM PDT) + + + | Narrative | Performed At | + + + | [id number] | | | [id number] | | | [address] [id number] | | | Date: 10/18/2007 Attending Surgeon: | | | Magnolia Diego M.D. Papier Mache Molder(s): | | | Xochitl Davis M.D. | | | Taylor Chávez M.D. 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 Postoperative Diagnosis(es): Subarachnoid | | | hemorrhage due to rupture of the anterior communicating artery | | | aneurysm. Procedures Performed: 1. Right pterional | | | craniotomy. 2. Dissection and clipping of the anterior | | | communicating artery aneurysm x2. 3. Utilization of | | | the intraoperative microscope. 4. Utilization of intraoperative | | | Doppler. Complications: None. Anesthesia: | | | General endotracheal anesthesia. I, Dr. Magnolia Diego, was in the | | | OR during the critical portions of this procedure which include | | | the craniotomy, dissecting and clipping of the aneurysm, and | | | hemostasis. A full operative report will be dictated by . | | | Xochitl Davis. Magnolia Diego M.D. AD | | | / HS [id number] / [id number] / [id number] / | | | | | + + + + + | Procedure Note | + + | Magnolia Diego MD - 10/18/2007 12:00 AM PDT [id number] | | [id number] [address] | | [id number] Date: 10/18/2007ttending Surgeon: Magnolia | | Narinder Diego Papier Mache Molder(s): Xochitl Davis M.D. | | Taylor Chávez M.D. Preoperative Diagnosis(es):Subarachnoid hemorrhage due | | to rupture of the anterior communicating arteryaneurysm. Postoperative | | Diagnosis(es):Subarachnoid hemorrhage due to rupture of the anterior communicating | | arteryaneurysm. Procedures Performed:1. Right pterional craniotomy.2. Dissection | | and clipping of the anterior communicating artery aneurysm x2.3. Utilization of | | the intraoperative microscope.4. Utilization of intraoperative Doppler. | | Complications:None. Anesthesia:General endotracheal anesthesia. I, Dr. Magnolia Diego, | | was in the OR during the critical portions of thisprocedure which include the | | craniotomy, dissecting and clipping of theaneurysm, and hemostasis. A full operative | | report will be dictated by Dr.Kiarash Davis. Magnolia Diego M.D. MANDEEP / [id number] | | / [id number] / [id number] / T: 10/19/2007 | |Subarachnoid hemorrhage due to rupture of the anterior communicating artery | |aneurysm. | | | | | |Postoperative Diagnosis(es): | |Subarachnoid hemorrhage due to rupture of the anterior communicating artery | |aneurysm. | | | | | |Procedures Performed: | |1. Right pterional craniotomy. | |2. Dissection and clipping of the anterior communicating artery aneurysm | | x2. | |3. Utilization of the intraoperative microscope. | |4. Utilization of intraoperative Doppler. | | | | | | | | | |Complications: | |None. | | | | | |Anesthesia: | |General endotracheal anesthesia. | | | | | |I, Dr. Magnolia Diego, was in the OR during the critical portions of this | |procedure which include the craniotomy, dissecting and clipping of the | |aneurysm, and hemostasis. A full operative report will be dictated by | |Xochitl Davis. | | | | | | | | | | | | | | | | | |Magnolia Diego M.D. | | | | | |AD / HS | |[id number] / [id number] / [id number] / | | | | | | [...] | acetaminophen (aka TYLENOL) | Given | 10/27/19 | 650 mg | | | | liquid 325-650 mg 325-650 mg, | | 08 3:16 | | | | | feeding tube, EVERY 4 HOURS | | PM PDT | | | | | NEEDED, Starting 10/22/07 at | | | | | | | 1839, Until 10/28/07 at 0122, | | | | | | | mild pain, headache, fever | | | | | | + +--------+ +--------+------+------+ +-------+ +--------+---+---+ | Given | 10/27/19 | 650 mg | | | | | 08 6:24 | | | | | | AM PDT | | | | +-------+ +--------+---+---+ | Given | 10/26/19 | 650 mg | | | | | 08 8:25 | | | | | | PM PDT | | | | +-------+ +--------+---+---+ +---+---+ | | | +---+---+ + +-------+ +--------+---+---+ | acetaminophen (aka TYLENOL) | Given | 10/20/19 | 650 mg | | | | suppository 650 mg 650 mg, | | 08 12:00 | | | | | rectal, EVERY 6 HOURS NEEDED, | | AM PDT | | | | | Starting Clarisa 10/19/07 at 2327, | | | | | | | Until Tue10/24/07 at 0922, mild | | | | | | | pain, fever | | | | | | + +-------+ +--------+---+---+ +---+---+ | | | +---+---+ + +-------+ +--------+---+---+ | acetaminophen (aka TYLENOL) | Given | 10/22/19 | 650 mg | | | | tablet 325-650 mg 325-650 mg, | | 08 4:48 | | | | | oral, EVERY 4 HOURS NEEDED, | | AM PDT | | | | | Starting Clarisa 10/19/07 at 2327, | | | | | | | Until 10/22/07 at 1839, mild | | | | | | | pain, headache, fever | | | | | | + +-------+ +--------+---+---+ +-------+ +--------+---+---+ | Given | 10/20/19 | 650 mg | | | | | 08 8:31 | | | | | | PM PDT | | | | +-------+ +--------+---+---+ +---+---+ | | | +---+---+ + +-------+ +--------+---+---+ | acetaminophen (aka TYLENOL) | Given | 10/30/19 | 650 mg | | | | tablet 325-650 mg 325-650 mg, | | 08 12:00 | | | | | oral, EVERY 4 HOURS NEEDED, | | AM PDT | | | | | Starting 10/28/07 at 0115, | | | | | | | Until Clarisa 11/02/07 at 2059, mild | | | | | | | pain, headache, fever | | | | | | + +-------+ +--------+---+---+ +-------+ +--------+---+---+ | Given | 10/28/19 | 650 mg | | | | | 08 9:12 | | | | | | PM PDT | | | | +-------+ +--------+---+---+ | Given | 10/28/19 | 650 mg | | | | | 08 8:00 | | | | | | AM PDT | | | | +-------+ +--------+---+---+ +---+---+ | | | +---+---+ + +-------+ +--------+---+---+ | albumin human (aka BUMINATE, | Given | 10/22/19 | 12.5 g | | | | FLEXBUMIN) 25 % injection 12.5 g | | 08 4:11 | | | | | 12.5 g, intravenous, EVERY 6 | | AM PDT | | | | | HOURS, 4 doses, First dose on Sat | | | | | | | 10/21/07 at 1000, Last dose on | | | | | | | 10/22/07 at 0400 | | | | | | + +-------+ +--------+---+---+ +-------+ +--------+---+---+ | Given | 10/21/19 | 12.5 g | | | | | 08 10:35 | | | | | | PM PDT | | | | +-------+ +--------+---+---+ | Given | 10/21/19 | 12.5 g | | | | | 08 4:00 | | | | | | PM PDT | | | | +-------+ +--------+---+---+ +---+---+ | | | +---+---+ + +-------+ +---------+---+---+ | albuterol (aka PROVENTIL, | Given | 10/27/19 | 4 puffs | | | | VENTOLIN) 90 mcg/Actuation | | 08 4:54 | | | | | inhaler 4 Puff 4 puff, | | AM PDT | | | | | inhalation, EVERY 4 HOURS | | | | | | | NEEDED, Starting 10/23/07 at | | | | | | | 0740, Until Clarisa 11/02/07 at 2059, | | | | | | | dyspnea/SOB | | | | | | + +-------+ +---------+---+---+ +-------+ +---------+---+---+ | Given | 10/24/19 | 4 puffs | | | | | 08 11:19 | | | | | | PM PDT | | | | +-------+ +---------+---+---+ | Given | 10/23/19 | 4 puffs | | | | | 08 9:40 | | | | | | AM PDT | | | | +-------+ +---------+---+---+ +---+---+ | | | +---+---+ + +-------+ +--------+---+---+ | albuterol 0.083% (aka | Given | 10/21/19 | 2.5 mg | | | | PROVENTIL,VENTOLIN) 2.5 mg /3 mL | | 08 1:45 | | | | | (0.083 %) nebulizer solution 2.5 | | AM PDT | | | | | mg 2.5 mg, inhalation, ONCE, 1 | | | | | | | dose, 10/21/07 at 0145 | | | | | | + +-------+ +--------+---+---+ +---+---+ | | | +---+---+ + +-------+ +--------+---+---+ | albuterol 0.083% (aka | Given | 10/21/19 | 2.5 mg | | | | PROVENTIL,VENTOLIN) 2.5 mg /3 mL | | 08 5:20 | | | | | (0.083 %) nebulizer solution 2.5 | | AM PDT | | | | | mg 2.5 mg, inhalation, HSD EVERY | | | | | | | 4 HOURS NEEDED, Starting Sat | | | | | | | 10/21/07 at 0519, Until Sat | | | | | | | 10/21/07 at 0619, dyspnea/SOB | | | | | | + +-------+ +--------+---+---+ +---+---+ | | | +---+---+ + +-------+ +---------+---+---+ | albuterol-ipratropium (aka | Given | 10/24/19 | 4 puffs | | | | COMBIVENT) inhaler 4 Puff 4 | | 08 12:00 | | | | | puff, inhalation, EVERY 4 HOURS, | | PM PDT | | | | | First dose on 10/22/07 at | | | | | | | 0330, Until Discontinued | | | | | | + +-------+ +---------+---+---+ +-------+ +---------+---+---+ | Given | 10/24/19 | 4 puffs | | | | | 08 8:00 | | | | | | AM PDT | | | | +-------+ +---------+---+---+ | Given | 10/24/19 | 4 puffs | | | | | 08 4:00 | | | | | | AM PDT | | | | +-------+ +---------+---+---+ +---+---+ | | | +---+---+ + +-------+ +---------+---+---+ | albuterol-ipratropium (aka | Given | 10/31/19 | 4 puffs | | | | COMBIVENT) inhaler 4 Puff 4 | | 08 6:15 | | | | | puff, inhalation, FOUR TIMES | | PM PDT | | | | | DAILY, First dose (after last | | | | | | | modification) on Tue10/24/07 at | | | | | | | 1800, Until Discontinued | | | | | | + +-------+ +---------+---+---+ +-------+ +---------+---+---+ | Given | 10/31/19 | 4 puffs | | | | | 08 2:40 | | | | | | PM PDT | | | | +-------+ +---------+---+---+ | Given | 10/31/19 | 4 puffs | | | | | 08 8:35 | | | | | | AM PDT | | | | +-------+ +---------+---+---+ +---+---+ | | | +---+---+ + +-------+ +------+---+---+ | albuterol-ipratropium (aka | Given | 10/21/19 | 3 mL | | | | GERRY-KADEEM) nebulizer solution 3 mL | | 08 1:40 | | | | | 3 mL, inhalation, EVERY 4 HOURS | | AM PDT | | | | | NEEDED, Starting 10/20/07 | | | | | | | at 2312, Until 10/21/07 at | | | | | | | 0518, dyspnea/SOB | | | | | | + +-------+ +------+---+---+ +---+---+ | | | +---+---+ + +-------+ +------+---+---+ | albuterol-ipratropium (aka | Given | 10/21/19 | 3 mL | | | | CRISTHIANO-KADEEM) nebulizer solution 3 mL | | 08 9:10 | | | | | 3 mL, inhalation, FOUR TIMES | | PM PDT | | | | | DAILY, First dose (after last | | | | | | | modification) on 10/21/07 at | | | | | | | 0900, Until Discontinued | | | | | | + +-------+ +------+---+---+ +-------+ +------+---+---+ | Given | 10/21/19 | 3 mL | | | | | 08 4:40 | | | | | | PM PDT | | | | +-------+ +------+---+---+ | Given | 10/21/19 | 3 mL | | | | | 08 11:00 | | | | | | AM PDT | | | | +-------+ +------+---+---+ +---+---+ | | | +---+---+ + +-------+ +------+---+ + | alteplase (aka CATHFLO | Given | 10/24/19 | 2 mg | | Central | | ACTIVASE) injection 2 mg 2 mg, | | 08 3:38 | | | Line | | Intracatheter, ONCE, 1 dose, Tue | | PM PDT | | | | | 10/24/07 at 1215 | | | | | | + +-------+ +------+---+ + +---+---+ | | | +---+---+ + +-------+ +-----+---+---+ | calcium gluconate IV 2 g 2 g, | Given | 10/25/19 | 2 g | | | | intravenous, ONCE, 1 dose, Wed | | 08 7:45 | | | | | 10/25/07 at 0745 | | AM PDT | | | | + +-------+ +-----+---+---+ +---+---+ | | | +---+---+ + +-------+ +-------+---+---+ | cisatracurium (aka NIMBEX) | Given | 10/18/19 | 10 mg | | | | injection 8,520 mcg 8,520 mcg | | 08 2:35 | | | | | (0.15 mg/kg | | PM PDT | | | | | 56.8 kg), intravenous, ONCE, 1 | | | | | | | dose, Tue10/18/07 at 1400 | | | | | | + +-------+ +-------+---+---+ +---+---+ | | | +---+---+ + + + + +-------+---+ | dexmedetomidine 200 mcg in NaCl | Rate/Dos | 10/26/19 | 0.4 | 5.7 | | | 0.9 % IV infusion 0.2-0.7 | e Change | 08 11:00 | mcg/kg/h | mL/hr | | | mcg/kg/hr | | AM PDT | r | | | | 56.8 kg (rounded to 2.8-9.9 | | | | | | | mL/hr), intravenous, CONTINUOUS, | | | | | | | Starting Tue10/25/07 at 1145, | | | | | | | Until Tue10/26/07 at 1108 | | | | | | + + + + +-------+---+ + + + +-------+---+ | Rate/Dose Change | 10/26/19 | 0.3 | 4.3 | | | | 08 10:00 | mcg/kg/h | mL/hr | | | | AM PDT | r | | | + + + +-------+---+ | Rate/Dose Change | 10/26/19 | 0.4 | 5.7 | | | | 08 9:00 | mcg/kg/h | mL/hr | | | | AM PDT | r | | | + + + +-------+---+ +---+---+ | | | +---+---+ + +-------+ +-------+---+---+ | docusate sodium liquid 50 mg | Given | 11/01/19 | 50 mg | | | | 50 mg, feeding tube, TWICE DAILY, | | 08 9:00 | | | | | First dose on 10/22/07 at | | AM PDT | | | | | 0900, Until Discontinued | | | | | | + +-------+ +-------+---+---+ +-------+ +-------+---+---+ | Given | 10/31/19 | 50 mg | | | | | 08 9:00 | | | | | | AM PDT | | | | +-------+ +-------+---+---+ | Given | 10/30/19 | 50 mg | | | | | 08 9:00 | | | | | | PM PDT | | | | +-------+ +-------+---+---+ +---+---+ | | | +---+---+ + +-------+ +-------+---+---+ | enoxaparin (aka LOVENOX) | Given | 11/02/19 | 30 mg | | | | injection 30 mg 30 mg, | | 08 9:00 | | | | | subcutaneous, TWICE DAILY, First | | AM PDT | | | | | dose on Tue11/01/07 at 0900, | | | | | | | Until Discontinued | | | | | | + +-------+ +-------+---+---+ +-------+ +-------+---+---+ | Given | 11/01/19 | 30 mg | | | | | 08 9:00 | | | | | | PM PDT | | | | +-------+ +-------+---+---+ | Given | 11/01/19 | 30 mg | | | | | 08 9:00 | | | | | | AM PDT | | | | +-------+ +-------+---+---+ +---+---+ | | | +---+---+ + +-------+ +-------+---+---+ | etomidate (aka AMIDATE) | Given | 10/22/19 | 20 mg | | | | injection 1 dose, Starting Sun | | 08 3:00 | | | | | 10/22/07 at 0258, Until Sun | | AM PDT | | | | | 10/22/07 at 0448 | | | | | | + +-------+ +-------+---+---+ +---+---+ | | | +---+---+ + +-------+ +--------+---+---+ | FENtanyl (aka SUBLIMAZE) bolus | Bolus | 10/18/19 | 50 mcg | | | | from continuous infusion 50 mcg | | 08 2:32 | | | | | intravenous, ONCE, 1 dose, Wed | | PM PDT | | | | | 10/18/07 at 1445 | | | | | | + +-------+ +--------+---+---+ +---+---+ | | | +---+---+ + +-------+ +--------+---+---+ | FENtanyl (aka SUBLIMAZE) bolus | Bolus | 10/19/19 | 50 mcg | | | | from continuous infusion 50 mcg | | 08 8:00 | | | | | intravenous, EVERY 2 HOURS | | AM PDT | | | | | NEEDED, Starting 10/18/07 at | | | | | | | 1803, Until 10/21/07 at 0947, | | | | | | | moderate pain | | | | | | + +-------+ +--------+---+---+ +-------+ +--------+---+---+ | Bolus | 10/18/19 | 50 mcg | | | | | 08 4:47 | | | | | | PM PDT | | | | +-------+ +--------+---+---+ +---+---+ | | | +---+---+ + +-------+ +--------+---+---+ | fentanyl (aka SUBLIMAZE) | Given | 10/24/19 | 25 mcg | | | | injection 25 mcg 25 mcg, | | 08 6:30 | | | | | intravenous, ONCE, 1 dose, Tue | | PM PDT | | | | | 10/24/07 at 1830 | | | | | | + +-------+ +--------+---+---+ +---+---+ | | | +---+---+ + +-------+ +--------+---+---+ | fentanyl (aka SUBLIMAZE) | Given | 10/21/19 | 25 mcg | | | | injection 50-100 mcg 50-100 mcg, | | 08 4:36 | | | | | intravenous, EVERY 1 HOUR | | AM PDT | | | | | NEEDED, Starting 10/18/07 at | | | | | | | 0458, Until 10/21/07 at 0947, | | | | | | | moderate pain, severe pain | | | | | | + +-------+ +--------+---+---+ +-------+ +--------+---+---+ | Given | 10/21/19 | 25 mcg | | | | | 08 3:51 | | | | | | AM PDT | | | | +-------+ +--------+---+---+ | Given | 10/20/19 | 25 mcg | | | | | 08 4:41 | | | | | | AM PDT | | | | +-------+ +--------+---+---+ +---+---+ | | | +---+---+ + + + +--------+-------+---+ | fentanyl in NaCl 0.9% (aka | Rate/Dos | 10/19/19 | 35 | 3.5 | | | SUBLIMAZE) IV infusion 1-75 | e Change | 08 2:00 | mcg/hr | mL/hr | | | mcg/hr 1-75 mcg/hr (rounded to | | PM PDT | | | | | 0.1-7.5 mL/hr), intravenous, | | | | | | | CONTINUOUS, Starting 10/18/07 | | | | | | | at 0700, Until 10/21/07 at | | | | | | | 0947 | | | | | | + + + +--------+-------+---+ + + +--------+-------+---+ | Rate/Dose Change | 10/19/19 | 35 | 3.5 | | | | 08 1:00 | mcg/hr | mL/hr | | | | PM PDT | | | | + + +--------+-------+---+ | Rate/Dose Change | 10/19/19 | 35 | 3.5 | | | | 08 12:00 | mcg/hr | mL/hr | | | | PM PDT | | | | + + +--------+-------+---+ +---+---+ | | | +---+---+ + + + +--------+-------+---+ | fentanyl in NaCl 0.9% (aka | Rate/Dos | 10/24/19 | 75 | 7.5 | | | SUBLIMAZE) IV infusion 10-150 | e Change | 08 5:00 | mcg/hr | mL/hr | | | mcg/hr 10-150 mcg/hr (rounded to | | AM PDT | | | | | 1-15 mL/hr), intravenous, | | | | | | | CONTINUOUS, Starting 10/22/07 | | | | | | | at 0315, Until Tue10/27/07 at 1347 | | | | | | + + + +--------+-------+---+ + + +--------+-------+---+ | Rate/Dose Change | 10/24/19 | 75 | 7.5 | | | | 08 4:00 | mcg/hr | mL/hr | | | | AM PDT | | | | + + +--------+-------+---+ | Rate/Dose Change | 10/24/19 | 75 | 7.5 | | | | 08 3:00 | mcg/hr | mL/hr | | | | AM PDT | | | | + + +--------+-------+---+ +---+---+ | | | +---+---+ + +-------+ +--------+---+---+ | fludrocortisone (aka SERGIO) | Given | 10/26/19 | 0.1 mg | | | | tablet 0.1 mg 0.1 mg, oral, | | 08 10:00 | | | | | THREE TIMES DAILY, First dose on | | PM PDT | | | | | 10/25/07 at 1600, Until | | | | | | | Discontinued | | | | | | + +-------+ +--------+---+---+ +-------+ +--------+---+---+ | Given | 10/26/19 | 0.1 mg | | | | | 08 4:00 | | | | | | PM PDT | | | | +-------+ +--------+---+---+ | Given | 10/26/19 | 0.1 mg | | | | | 08 9:00 | | | | | | AM PDT | | | | +-------+ +--------+---+---+ +---+---+ | | | +---+---+ + +-------+ +--------+---+---+ | fludrocortisone (aka SERGIO) | Given | 10/28/19 | 0.1 mg | | | | tablet 0.1 mg 0.1 mg, oral, | | 08 9:00 | | | | | DAILY, First dose (after last | | AM PDT | | | | | modification) on Tue10/27/07 at | | | | | | | 0900, Until Discontinued | | | | | | + +-------+ +--------+---+---+ +-------+ +--------+---+---+ | Given | 10/27/19 | 0.1 mg | | | | | 08 9:00 | | | | | | AM PDT | | | | +-------+ +--------+---+---+ +---+---+ | | | +---+---+ + +-------+ +-------+---+---+ | furosemide (aka LASIX) | Given | 10/22/19 | 20 mg | | | | injection 20 mg 20 mg, | | 08 4:30 | | | | | intravenous, ONCE, 1 dose, Sun | | PM PDT | | | | | 10/22/07 at 1630 | | | | | | + +-------+ +-------+---+---+ +---+---+ | | | +---+---+ + +-------+ +-------+---+---+ | furosemide (aka LASIX) | Given | 10/24/19 | 20 mg | | | | injection 1 dose, Starting Tue | | 08 5:45 | | | | | 10/24/07 at 0534, Until 10/24/07 | | AM PDT | | | | | at 0553 | | | | | | + +-------+ +-------+---+---+ +---+---+ | | | +---+---+ + +-------+ +-------+---+---+ | furosemide (aka LASIX) tablet | Given | 10/24/19 | 20 mg | | | | 20 mg 20 mg, oral, ONCE, 1 dose, | | 08 11:15 | | | | | 10/24/07 at 2315 | | PM PDT | | | | + +-------+ +-------+---+---+ +---+---+ | | | +---+---+ + + + +---------+---------+---+ | furosemide 1 mg/mL in NaCl 0.9 | Rate/Dos | 10/23/19 | 6 mg/hr | 6 mL/hr | | | % IV infusion 1-10 mg/hr | e Change | 08 9:00 | | | | | (rounded to 1-10 mL/hr), | | AM PDT | | | | | intravenous, CONTINUOUS, Starting | | | | | | | 10/22/07 at 1700, Until Mon | | | | | | | 10/23/07 at 0944 | | | | | | + + + +---------+---------+---+ + + +---------+---------+---+ | Rate/Dose Change | 10/23/19 | 6 mg/hr | 6 mL/hr | | | | 08 8:15 | | | | | | AM PDT | | | | + + +---------+---------+---+ | Rate/Dose Change | 10/23/19 | 8 mg/hr | 8 mL/hr | | | | 08 3:00 | | | | | | AM PDT | | | | + + +---------+---------+---+ +---+---+ | | | +---+---+ + +-------+ +------+---+---+ | haloperidol lactate (aka | Given | 10/24/19 | 2 mg | | | | HALDOL) injection 2 mg 2 mg, | | 08 9:40 | | | | | intravenous, EVERY 4 HOURS | | PM PDT | | | | | NEEDED, Starting Tue10/24/07 at | | | | | | | 2134, Until Tue10/24/07 at 2151, | | | | | | | agitation, combative | | | | | | + +-------+ +------+---+---+ +---+---+ | | | +---+---+ + +-------+ +--------+---+---+ | haloperidol lactate (aka | Given | 10/25/19 | 2.5 mg | | | | HALDOL) injection 2-5 mg 2-5 mg, | | 08 11:10 | | | | | intravenous, EVERY 4 HOURS | | AM PDT | | | | | NEEDED, Starting Tue10/24/07 at | | | | | | | 2150, Until Tue10/30/07 at 1249, | | | | | | | agitation, combative behavior, | | | | | | | risk of pulling EVD | | | | | | + +-------+ +--------+---+---+ +-------+ +------+---+---+ | Given | 10/25/19 | 5 mg | | | | | 08 2:13 | | | | | | AM PDT | | | | +-------+ +------+---+---+ | Given | 10/24/19 | 3 mg | | | | | 08 9:51 | | | | | | PM PDT | | | | +-------+ +------+---+---+ +---+---+ | | | +---+---+ + +-------+ +--------+---+---+ | hydrocortisone sodium succinate | Given | 10/23/19 | 100 mg | | | | (aka YUDELKAUCROM) injection 100 | | 08 10:00 | | | | | mg 100 mg, intravenous, THREE | | PM PDT | | | | | TIMES DAILY, 6 doses, First dose | | | | | | | on 10/22/07 at 1630, Last dose | | | | | | | on 10/24/07 at 0900 | | | | | | + +-------+ +--------+---+---+ +-------+ +--------+---+---+ | Given | 10/23/19 | 100 mg | | | | | 08 4:00 | | | | | | PM PDT | | | | +-------+ +--------+---+---+ | Given | 10/23/19 | 100 mg | | | | | 08 9:00 | | | | | | AM PDT | | | | +-------+ +--------+---+---+ +---+---+ | | | +---+---+ + +-------+ +-------+---+---+ | hydrocortisone sodium succinate | Given | 10/25/19 | 50 mg | | | | (aka SOLUCORTEF) injection 50 mg | | 08 10:00 | | | | | 50 mg, intravenous, THREE TIMES | | PM PDT | | | | | DAILY, 6 doses, First dose on | | | | | | | 10/24/07 at 0945, Last dose on | | | | | | | 10/25/07 at 2200 | | | | | | + +-------+ +-------+---+---+ +-------+ +-------+---+---+ | Given | 10/25/19 | 50 mg | | | | | 08 4:00 | | | | | | PM PDT | | | | +-------+ +-------+---+---+ | Given | 10/25/19 | 50 mg | | | | | 08 9:00 | | | | | | AM PDT | | | | +-------+ +-------+---+---+ +---+---+ | | | +---+---+ + +-------+ +-------+---+---+ | labetalol (aka | Given | 10/22/19 | 10 mg | | | | NORMODYNE,TRANDATE) injection | | 08 1:58 | | | | | 10-40 mg 10-40 mg, intravenous, | | AM PDT | | | | | EVERY 10 MINUTES NEEDED, | | | | | | | Starting Tue10/18/07 at 0459, | | | | | | | Until Tue11/01/07 at 1824, to | | | | | | | achieve blood pressure goal | | | | | | + +-------+ +-------+---+---+ +-------+ +-------+---+---+ | Given | 10/22/19 | 10 mg | | | | | 08 12:54 | | | | | | AM PDT | | | | +-------+ +-------+---+---+ | Given | 10/20/19 | 20 mg | | | | | 08 10:46 | | | | | | PM PDT | | | | +-------+ +-------+---+---+ +---+---+ | | | +---+---+ + +-------+ +-------+---+---+ | lansoprazole 3 mg/mL suspension | Given | 11/02/19 | 30 mg | | | | 30 mg 30 mg, feeding tube, | | 08 9:00 | | | | | DAILY, First dose on Tue10/25/07 | | AM PDT | | | | | at 0945, Until Discontinued | | | | | | + +-------+ +-------+---+---+ +-------+ +-------+---+---+ | Given | 11/01/19 | 30 mg | | | | | 08 9:00 | | | | | | AM PDT | | | | +-------+ +-------+---+---+ | Given | 10/31/19 | 30 mg | | | | | 08 9:00 | | | | | | AM PDT | | | | +-------+ +-------+---+---+ +---+---+ | | | +---+---+ + +-------+ +--------+---+---+ | lidocaine (aka XYLOCAINE MPF) | Given | 10/18/19 | 100 mg | | | | 20 mg/mL (2 %) injection 100 mg | | 08 2:00 | | | | | 100 mg, intravenous, ONCE, 1 | | PM PDT | | | | | dose, Tue10/18/07 at 1400 | | | | | | + +-------+ +--------+---+---+ +---+---+ | | | +---+---+ + +-------+ +-------+---+---+ | lidocaine (aka XYLOCAINE) 1 % | Given | 10/19/19 | 30 mg | | | | (10 mg/mL) injection 1 dose, | | 08 4:00 | | | | | Starting [facility] 10/19/07 at 1553, | | PM PDT | | | | | Until [facility] 10/19/07 at 1722 | | | | | | + +-------+ +-------+---+---+ +---+---+ | | | +---+---+ + +-------+ +---+---+---+ | lidocaine (aka XYLOCAINE) 1 % | Given | 10/23/19 | | | | | (10 mg/mL) injection 1 dose, | | 08 12:45 | | | | | Starting 10/23/07 at 1243, | | PM PDT | | | | | Until 10/23/07 at 1401 | | | | | | + +-------+ +---+---+---+ +---+---+ | | | +---+---+ + +-------+ +--------+---+---+ | lidocaine 40 mg/mL (4 %) | Given | 10/18/19 | 160 mg | | | | injection 160 mg 160 mg (4 mL), | | 08 2:00 | | | | | infiltration, ONCE, 1 dose, Wed | | PM PDT | | | | | 10/18/07 at 1400 | | | | | | + +-------+ +--------+---+---+ +---+---+ | | | +---+---+ + +-------+ +-----+---+---+ | magnesium sulfate IV (premade) | Given | 10/21/19 | 2 g | | | | 2 g 2 g, intravenous, ONCE, 1 | | 08 6:01 | | | | | dose, 10/21/07 at 0445 | | AM PDT | | | | + +-------+ +-----+---+---+ +---+---+ | | | +---+---+ + +-------+ +-----+---+---+ | magnesium sulfate IV (premade) | Given | 10/25/19 | 2 g | | | | 2 g 2 g, intravenous, ONCE, 1 | | 08 7:45 | | | | | dose, Tue10/25/07 at 0745 | | AM PDT | | | | + +-------+ +-----+---+---+ +---+---+ | | | +---+---+ + +-------+ +-------+---+---+ | metoclopramide (aka REGLAN) | Given | 10/23/19 | 10 mg | | | | injection 5-10 mg 5-10 mg, | | 08 2:45 | | | | | intravenous, EVERY 4 HOURS | | PM PDT | | | | | NEEDED, Starting Tue10/18/07 at | | | | | | | 0456, Until Tue11/02/07 at 2058, | | | | | | | nausea/vomiting | | | | | | + +-------+ +-------+---+---+ +---+---+ | | | +---+---+ + +-------+ +---+---+---+ | miconazole (aka SECURA) 2 % | Given | 11/02/19 | | | | | extra thick cream topical, TWICE | | 08 9:00 | | | | | DAILY, First dose on Tue10/25/07 | | AM PDT | | | | | at 1245, Until Discontinued | | | | | | + +-------+ +---+---+---+ +-------+ +---+---+---+ | Given | 11/01/19 | | | | | | 08 9:00 | | | | | | PM PDT | | | | +-------+ +---+---+---+ | Given | 11/01/19 | | | | | | 08 9:00 | | | | | | AM PDT | | | | +-------+ +---+---+---+ +---+---+ | | | +---+---+ + +-------+ +--------+---+---+ | NaCl 0.9 % IV bolus 250 mL, | Given | 10/18/19 | 250 mL | | | | intravenous, ONCE, 1 dose, Wed | | 08 9:30 | | | | | 10/18/07 at 0930 | | AM PDT | | | | + +-------+ +--------+---+---+ +---+---+ | | | +---+---+ + +-------+ +--------+---+---+ | NaCl 0.9 % IV bolus 500 mL, | Given | 10/19/19 | 500 mL | | | | intravenous, ONCE, 1 dose, Clarisa | | 08 11:30 | | | | | 10/19/07 at 0915 | | AM PDT | | | | + +-------+ +--------+---+---+ +---+---+ | | | +---+---+ + +-------+ +--------+---+---+ | NaCl 0.9 % IV bolus 500 mL, | Given | 10/22/19 | 500 mL | | | | intravenous, ONCE, 1 dose, Sun | | 08 12:00 | | | | | 10/22/07 at 0130 | | AM PDT | | | | + +-------+ +--------+---+---+ +---+---+ | | | +---+---+ + +-------+ +--------+---+---+ | NaCl 0.9 % IV bolus 500 mL, | Given | 10/22/19 | 500 mL | | | | intravenous, ONCE, 1 dose, Sun | | 08 3:00 | | | | | 10/22/07 at 0415 | | AM PDT | | | | + +-------+ +--------+---+---+ +---+---+ | | | +---+---+ + +-------+ +--------+---+---+ | NaCl 0.9 % IV bolus 500 mL, | Given | 10/22/19 | 500 mL | | | | intravenous, ONCE, 1 dose, Sun | | 08 6:00 | | | | | 10/22/07 at 0645 | | AM PDT | | | | + +-------+ +--------+---+---+ +---+---+ | | | +---+---+ + +-------+ +--------+---+---+ | NaCl 0.9 % IV bolus 500 mL, | Given | 10/23/19 | 500 mL | | | | intravenous, ONCE, 1 dose, Mon | | 08 10:00 | | | | | 10/23/07 at 2200 | | PM PDT | | | | + +-------+ +--------+---+---+ +---+---+ | | | +---+---+ + +-------+ + +---+---+ | NaCl 0.9 % IV bolus 1,000 mL, | Given | 10/25/19 | 1,000 mL | | | | intravenous, ONCE, 1 dose, Wed | | 08 11:00 | | | | | 10/25/07 at 1100 | | AM PDT | | | | + +-------+ + +---+---+ +---+---+ | | | +---+---+ + +-------+ + +---+---+ | NaCl 0.9 % IV bolus 1,000 mL, | Given | 10/25/19 | 1,000 mL | | | | intravenous, ONCE, 1 dose, Wed | | 08 3:15 | | | | | 10/25/07 at 1515 | | PM PDT | | | | + +-------+ + +---+---+ +---+---+ | | | +---+---+ + +-------+ +--------+---+---+ | NaCl 0.9 % IV bolus 500 mL, | Given | 10/28/19 | 500 mL | | | | intravenous, ONCE, 1 dose, Sat | | 08 4:45 | | | | | 10/28/07 at 0445 | | AM PDT | | | | + +-------+ +--------+---+---+ +---+---+ | | | +---+---+ + +---------+ +---+-------+---+ | NaCl 0.9%-KCl 20 mEq IV | New Bag | 10/18/19 | | 100 | | | infusion intravenous, | | 08 5:15 | | mL/hr | | | CONTINUOUS, Starting Tue10/18/07 | | AM PDT | | | | | at 0515, Until Tue10/18/07 at | | | | | | | 0926, at 100 mL/hr | | | | | | + +---------+ +---+-------+---+ +---+---+ | | | +---+---+ + +---------+ +---+-------+---+ | NaCl 0.9%-KCl 20 mEq IV | New Bag | 10/18/19 | | 100 | | | infusion intravenous, | | 08 3:46 | | mL/hr | | | CONTINUOUS, Starting Tue10/18/07 | | PM PDT | | | | | at 0930, Until Clarisa 10/19/07 at | | | | | | | 0641, at 100 mL/hr | | | | | | + +---------+ +---+-------+---+ + + +---+-------+---+ | Rate/Dose Change | 10/18/19 | | 100 | | | | 08 12:30 | | mL/hr | | | | PM PDT | | | | + + +---+-------+---+ +---+---+ | | | +---+---+ + +---------+ +---+ +---+ | NaCl 0.9%-KCl 20 mEq IV | New Bag | 10/20/19 | | 75 mL/hr | | | infusion intravenous, | | 08 5:30 | | | | | CONTINUOUS, Starting Clarisa 10/19/07 | | AM PDT | | | | | at 0645, Until Tue10/20/07 at | | | | | | | 1126, at 50 mL/hr | | | | | | + +---------+ +---+ +---+ +---------+ +---+ +---+ | New Bag | 10/19/19 | | 50 mL/hr | | | | 08 6:45 | | | | | | AM PDT | | | | +---------+ +---+ +---+ +---+---+ | | | +---+---+ + +---------+ +---+-------+---+ | NaCl 0.9%-KCl 20 mEq IV | New Bag | 10/21/19 | | 100 | | | infusion intravenous, | | 08 4:36 | | mL/hr | | | CONTINUOUS, Starting 10/20/07 | | AM PDT | | | | | at 1130, Until 10/21/07 at | | | | | | | 0739, at 100 mL/hr | | | | | | + +---------+ +---+-------+---+ + + +---+-------+---+ | New Bag | 10/20/19 | | 100 | | | | 08 12:13 | | mL/hr | | | | PM PDT | | | | + + +---+-------+---+ | Rate/Dose Change | 10/20/19 | | 100 | | | | 08 11:30 | | mL/hr | | | | AM PDT | | | | + + +---+-------+---+ +---+---+ | | | +---+---+ + + + +---+-------+---+ | NaCl 0.9%-KCl 20 mEq IV | Rate/Dos | 10/21/19 | | 100 | | | infusion intravenous, | e Change | 08 8:00 | | mL/hr | | | CONTINUOUS, Starting 10/21/07 | | AM PDT | | | | | at 0745, Until 10/25/07 at | | | | | | | 1048, at 100 mL/hr | | | | | | + + + +---+-------+---+ +---+---+ | | | +---+---+ + +---------+ +---+-------+---+ | NaCl 0.9%-KCl 20 mEq IV | New Bag | 10/25/19 | | 150 | | | infusion intravenous, | | 08 3:15 | | mL/hr | | | CONTINUOUS, Starting 10/25/07 | | PM PDT | | | | | at 1100, Until Tue10/27/07 at | | | | | | | 0845, at 150 mL/hr | | | | | | + +---------+ +---+-------+---+ +---------+ +---+-------+---+ | New Bag | 10/25/19 | | 150 | | | | 08 11:00 | | mL/hr | | | | AM PDT | | | | +---------+ +---+-------+---+ +---+---+ | | | +---+---+ + +---------+ +---+ +---+ | NaCl 0.9%-KCl 20 mEq IV | New Bag | 10/31/19 | | 85 mL/hr | | | infusion intravenous, | | 08 7:38 | | | | | CONTINUOUS, Starting 10/27/07 | | AM PDT | | | | | at 0900, Until 10/31/07 at | | | | | | | 1252, at 85 mL/hr | | | | | | + +---------+ +---+ +---+ + + +---+ +---+ | Rate/Dose Change | 10/27/19 | | 50 mL/hr | | | | 08 11:07 | | | | | | AM PDT | | | | + + +---+ +---+ +---+---+ | | | +---+---+ + +---------+ +---------+ +---+ | niCARdipine 0.2 mg/mL in NaCl | New Bag | 10/22/19 | 5 mg/hr | 25 mL/hr | | | 0.9% IV infusion 5-15 mg/hr | | 08 2:00 | | | | | (rounded to 25-75 mL/hr), | | AM PDT | | | | | intravenous, CONTINUOUS, Starting | | | | | | | 10/18/07 at 0515, Until Fri | | | | | | | 10/27/07 at 1347 | | | | | | + +---------+ +---------+ +---+ + + + + +---+ | Rate/Dose Change | 10/18/19 | 10 mg/hr | 50 mL/hr | | | | 08 5:00 | | | | | | AM PDT | | | | + + + + +---+ | New Bag | 10/18/19 | 5 mg/hr | 25 mL/hr | | | | 08 4:45 | | | | | | AM PDT | | | | + + + + +---+ +---+---+ | | | +---+---+ + +-------+ +-------+---+---+ | nimodipine (aka NIMOTOP) | Given | 11/02/19 | 60 mg | | | | capsule 60 mg 60 mg, oral, EVERY | | 08 1:30 | | | | | 4 HOURS, 126 doses, First dose | | PM PDT | | | | | on Tue10/18/07 at 0515, Last dose | | | | | | | on Tue11/08/07 at 0000 | | | | | | + +-------+ +-------+---+---+ +-------+ +-------+---+---+ | Given | 11/02/19 | 60 mg | | | | | 08 8:00 | | | | | | AM PDT | | | | +-------+ +-------+---+---+ | Given | 11/02/19 | 60 mg | | | | | 08 4:00 | | | | | | AM PDT | | | | +-------+ +-------+---+---+ +---+---+ | | | +---+---+ + +---------+ + +-------+---+ | norepinephrine 32 mcg/mL in | New Bag | 10/23/19 | 0.03 | 3.2 | | | NaCl 0.9% IV infusion (Pyxis) | | 08 1:30 | mcg/kg/m | mL/hr | | | 0.05-3 mcg/kg/min | | PM PDT | in | | | | 56.8 kg (rounded to 5.3-319.5 | | | | | | | mL/hr), intravenous, CONTINUOUS, | | | | | | | Starting 10/23/07 at 1330, | | | | | | | Until Tue10/23/07 at 1422 | | | | | | + +---------+ + +-------+---+ +---+---+ | | | +---+---+ + + + + +-------+---+ | norepinephrine 32 mcg/mL in | Rate/Dos | 10/24/19 | 0.033 | 3.5 | | | NaCl 0.9% IV infusion (Pyxis) | e Change | 08 5:00 | mcg/kg/m | mL/hr | | | 0.05-3 mcg/kg/min | | AM PDT | in | | | | 56.8 kg (rounded to 5.3-319.5 | | | | | | | mL/hr), intravenous, CONTINUOUS, | | | | | | | Starting 10/23/07 at 1430, | | | | | | | Until Tue10/27/07 at 1347 | | | | | | + + + + +-------+---+ + + + +-------+---+ | Restarted | 10/24/19 | 0.02 | 2.1 | | | | 08 4:00 | mcg/kg/m | mL/hr | | | | AM PDT | in | | | + + + +-------+---+ | Rate/Dose Change | 10/24/19 | 0.02 | 2.1 | | | | 08 1:00 | mcg/kg/m | mL/hr | | | | AM PDT | in | | | + + + +-------+---+ +---+---+ | | | +---+---+ + +-------+ +------+---+---+ | ondansetron (aka ZOFRAN) | Given | 10/18/19 | 4 mg | | | | injection 4 mg 4 mg, | | 08 5:15 | | | | | intravenous, ONCE, 1 dose, Tue | | AM PDT | | | | | 10/18/07 at 0515 | | | | | | + +-------+ +------+---+---+ +---+---+ | | | +---+---+ + +-------+ +------+---+---+ | ondansetron (aka ZOFRAN) | Given | 10/19/19 | 4 mg | | | | injection 4 mg 4 mg, | | 08 1:30 | | | | | intravenous, EVERY 8 HOURS, 3 | | AM PDT | | | | | doses, First dose on Tue10/18/07 | | | | | | | at 0800, Last dose on Tue10/19/07 | | | | | | | at 0000 | | | | | | + +-------+ +------+---+---+ +-------+ +------+---+---+ | Given | 10/18/19 | 4 mg | | | | | 08 8:00 | | | | | | AM PDT | | | | +-------+ +------+---+---+ +---+---+ | | | +---+---+ + +-------+ +------+---+---+ | ondansetron (aka ZOFRAN) | Given | 10/19/19 | 4 mg | | | | injection 4 mg 4 mg, | | 08 8:19 | | | | | intravenous, EVERY 8 HOURS | | PM PDT | | | | | NEEDED, Starting Clarisa 10/19/07 at | | | | | | | 0000, Until Tue10/20/07 at 2359, | | | | | | | nausea/vomiting | | | | | | + +-------+ +------+---+---+ +---+---+ | | | +---+---+ + +-------+ +------+---+---+ | ondansetron (aka ZOFRAN) | Given | 10/30/19 | 4 mg | | | | injection 4 mg 4 mg, | | 08 8:30 | | | | | intravenous, EVERY 12 HOURS | | AM PDT | | | | | NEEDED, Starting Tue10/21/07 at | | | | | | | 0000, Until Clarisa 11/02/07 at 2059, | | | | | | | nausea/vomiting | | | | | | + +-------+ +------+---+---+ +---+---+ | | | +---+---+ + +-------+ +-------+---+---+ | oxycodone (aka ROXICODONE) oral | Given | 10/29/19 | 10 mg | | | | solution 5-15 mg 5-15 mg, oral, | | 08 12:53 | | | | | EVERY 3 HOURS NEEDED, | | AM PDT | | | | | Starting Clarisa 10/26/07 at 1324, | | | | | | | Until 10/31/07 at 1415, severe | | | | | | | pain | | | | | | + +-------+ +-------+---+---+ +-------+ +-------+---+---+ | Given | 10/28/19 | 10 mg | | | | | 08 9:59 | | | | | | PM PDT | | | | +-------+ +-------+---+---+ | Given | 10/27/19 | 5 mg | | | | | 08 9:30 | | | | | | AM PDT | | | | +-------+ +-------+---+---+ +---+---+ | | | +---+---+ + +-------+ +-------+---+---+ | oxycodone immediate release | Given | 10/30/19 | 15 mg | | | | (aka ROXICODONE) tablet 5-15 mg | | 08 12:03 | | | | | 5-15 mg, oral, EVERY 3 HOURS | | AM PDT | | | | | NEEDED, Starting Tue10/18/07 at | | | | | | | 0458, Until Tue11/02/07 at 2059, | | | | | | | severe pain | | | | | | + +-------+ +-------+---+---+ +-------+ +-------+---+---+ | Given | 10/28/19 | 5 mg | | | | | 08 4:00 | | | | | | PM PDT | | | | +-------+ +-------+---+---+ | Given | 10/26/19 | 10 mg | | | | | 08 12:44 | | | | | | PM PDT | | | | +-------+ +-------+---+---+ +---+---+ | | | +---+---+ + + + + +-------+---+ | PHENylephrine 0.2 mg/mL in NaCl | Rate/Dos | 10/19/19 | 0.5 | 8.5 | | | 0.9% IV infusion (Pyxis) | e Change | 08 1:00 | mcg/kg/m | mL/hr | | | 0.01-3 mcg/kg/min | | PM PDT | in | | | | 56.8 kg (rounded to 0.2-51.1 | | | | | | | mL/hr), intravenous, CONTINUOUS, | | | | | | | Starting [facility] 10/19/07 at 0700, | | | | | | | Until 10/21/07 at 0947 | | | | | | + + + + +-------+---+ + + + +-------+---+ | Rate/Dose Change | 10/19/19 | 0.75 | 12.8 | | | | 08 12:00 | mcg/kg/m | mL/hr | | | | PM PDT | in | | | + + + +-------+---+ | Rate/Dose Change | 10/19/19 | 0.95 | 16.2 | | | | 08 10:00 | mcg/kg/m | mL/hr | | | | AM PDT | in | | | + + + +-------+---+ +---+---+ | | | +---+---+ + + + + +-------+---+ | PHENylephrine 0.2 mg/mL in NaCl | Rate/Dos | 10/23/19 | 0.5 | 8.5 | | | 0.9% IV infusion (Pyxis) | e Change | 08 1:00 | mcg/kg/m | mL/hr | | | 0.01-3 mcg/kg/min | | PM PDT | in | | | | 56.8 kg (rounded to 0.2-51.1 | | | | | | | mL/hr), intravenous, CONTINUOUS, | | | | | | | Starting 10/22/07 at 0330, | | | | | | | Until 10/23/07 at 1319 | | | | | | + + + + +-------+---+ + + + +-------+---+ | Rate/Dose Change | 10/23/19 | 0.4 | 6.8 | | | | 08 12:00 | mcg/kg/m | mL/hr | | | | PM PDT | in | | | + + + +-------+---+ | Rate/Dose Change | 10/23/19 | 0.3 | 5.1 | | | | 08 11:00 | mcg/kg/m | mL/hr | | | | AM PDT | in | | | + + + +-------+---+ +---+---+ | | | +---+---+ + +-------+ +-------+---+---+ | piperacillin-tazobactam (aka | Given | 10/27/19 | 4.5 g | | | | ZOSYN) IV 4.5 g 4.5 g, | | 08 10:00 | | | | | intravenous, EVERY 6 HOURS, First | | AM PDT | | | | | dose on 10/21/07 at 2200, | | | | | | | Until Discontinued | | | | | | + +-------+ +-------+---+---+ +-------+ +-------+---+---+ | Given | 10/27/19 | 4.5 g | | | | | 08 4:00 | | | | | | AM PDT | | | | +-------+ +-------+---+---+ | Given | 10/26/19 | 4.5 g | | | | | 08 10:00 | | | | | | PM PDT | | | | +-------+ +-------+---+---+ +---+---+ | | | +---+---+ + +-------+ +--------+---+---+ | potassium chloride (aka | Given | 10/29/19 | 40 mEq | | | | KAOCHLOR) liquid 10-40 mEq 10-40 | | 08 6:13 | | | | | mEq, oral, NEEDED, Starting | | AM PDT | | | | | 10/18/07 at 07, Until Clarisa | | | | | | | 11/02/07 at 2058, hypokalemia per | | | | | | | protocol | | | | | | + +-------+ +--------+---+---+ +-------+ +--------+---+---+ | Given | 10/27/19 | 40 mEq | | | | | 08 5:30 | | | | | | PM PDT | | | | +-------+ +--------+---+---+ | Given | 10/27/19 | 40 mEq | | | | | 08 10:14 | | | | | | AM PDT | | | | +-------+ +--------+---+---+ +---+---+ | | | +---+---+ + +-------+ +--------+---+---+ | potassium chloride IV 20 mEq | Given | 10/24/19 | 20 mEq | | | | 20 mEq, intravenous, NEEDED, | | 08 7:43 | | | | | Starting Tue10/18/07 at 0704, | | PM PDT | | | | | Until Tue10/25/07 at 0237, | | | | | | | hypokalemia | | | | | | + +-------+ +--------+---+---+ +-------+ +--------+---+---+ | Given | 10/24/19 | 20 mEq | | | | | 08 6:39 | | | | | | PM PDT | | | | +-------+ +--------+---+---+ | Given | 10/23/19 | 20 mEq | | | | | 08 6:45 | | | | | | PM PDT | | | | +-------+ +--------+---+---+ +---+---+ | | | +---+---+ + +-------+ +--------+---+---+ | potassium chloride IV 20 mEq | Given | 10/26/19 | 20 mEq | | | | 20 mEq, intravenous, NEEDED, | | 08 11:45 | | | | | Starting 10/25/07 at 0237, | | AM PDT | | | | | Until [facility] 10/26/07 at 1316, | | | | | | | hypokalemia | | | | | | + +-------+ +--------+---+---+ +-------+ +--------+---+---+ | Given | 10/26/19 | 20 mEq | | | | | 08 10:30 | | | | | | AM PDT | | | | +-------+ +--------+---+---+ | Given | 10/25/19 | 20 mEq | | | | | 08 6:30 | | | | | | PM PDT | | | | +-------+ +--------+---+---+ +---+---+ | | | +---+---+ + +-------+ +--------+---+---+ | potassium chloride IV 20 mEq | Given | 10/28/19 | 60 mEq | | | | 20 mEq, intravenous, NEEDED, | | 08 10:13 | | | | | Starting Clarisa 10/26/07 at 1316, | | AM PDT | | | | | Until Clarisa 11/02/07 at 2059, | | | | | | | hypokalemia | | | | | | + +-------+ +--------+---+---+ +-------+ +--------+---+---+ | Given | 10/28/19 | 20 mEq | | | | | 08 5:00 | | | | | | AM PDT | | | | +-------+ +--------+---+---+ | Given | 10/26/19 | 20 mEq | | | | | 08 8:45 | | | | | | PM PDT | | | | +-------+ +--------+---+---+ +---+---+ | | | +---+---+ + +-------+ +-------+---+---+ | pravastatin (aka PRAVACHOL) | Given | 11/01/19 | 40 mg | | | | tablet 40 mg 40 mg, oral, AT | | 08 10:00 | | | | | BEDTIME, 21 doses, First dose on | | PM PDT | | | | | 10/18/07 at 2200, Last dose on | | | | | | | 11/07/07 at 2200 | | | | | | + +-------+ +-------+---+---+ +-------+ +-------+---+---+ | Given | 10/31/19 | 40 mg | | | | | 08 10:00 | | | | | | PM PDT | | | | +-------+ +-------+---+---+ | Given | 10/30/19 | 40 mg | | | | | 08 10:00 | | | | | | PM PDT | | | | +-------+ +-------+---+---+ +---+---+ | | | +---+---+ + + + + +-------+---+ | propofol (aka DIPRIVAN) | Rate/Dos | 10/24/19 | 15 | 5.1 | | | injection 28.4-3,408 mcg/min | e Change | 08 5:00 | mcg/kg/m | mL/hr | | | 0.5-60 mcg/kg/min | | AM PDT | in | | | | 56.8 kg (rounded to 0.2-20.4 | | | | | | | mL/hr), intravenous, CONTINUOUS, | | | | | | | Starting 8/31/08 at 0315, | | | | | | | Until 10/27/07 at 0847 | | | | | | + + + + +-------+---+ + + + +-------+---+ | Rate/Dose Change | 10/24/19 | 15 | 5.1 | | | | 08 4:00 | mcg/kg/m | mL/hr | | | | AM PDT | in | | | + + + +-------+---+ | Rate/Dose Change | 10/24/19 | 15 | 5.1 | | | | 08 3:00 | mcg/kg/m | mL/hr | | | | AM PDT | in | | | + + + +-------+---+ +---+---+ | | | +---+---+ + + + + +-------+---+ | propofol (fiorellaa DIPRIVAN) | Rate/Dos | 10/19/19 | 10 | 3.4 | | | injection 284-2,840 mcg/min 5-50 | e Change | 08 2:00 | mcg/kg/m | mL/hr | | | mcg/kg/min | | PM PDT | in | | | | 56.8 kg (rounded to 1.7-17 | | | | | | | mL/hr), intravenous, CONTINUOUS, | | | | | | | Starting 10/18/07 at 0700, | | | | | | | Until 10/21/07 at 0947 | | | | | | + + + + +-------+---+ + + + +-------+---+ | Rate/Dose Change | 10/19/19 | 20 | 6.8 | | | | 08 1:00 | mcg/kg/m | mL/hr | | | | PM PDT | in | | | + + + +-------+---+ | Rate/Dose Change | 10/19/19 | 20 | 6.8 | | | | 08 12:00 | mcg/kg/m | mL/hr | | | | PM PDT | in | | | + + + +-------+---+ +---+---+ | | | +---+---+ + +-------+ +--------+---+---+ | propofol (aka DIPRIVAN) | Given | 10/18/19 | 190 mg | | | | injection 1 dose, Starting Wed | | 08 5:15 | | | | | 10/18/07 at 0512, Until Wed | | AM PDT | | | | | 10/18/07 at 0649 | | | | | | + +-------+ +--------+---+---+ +---+---+ | | | +---+---+ + +-------+ +-------+---+---+ | propofol (aka DIPRIVAN) | Bolus | 10/18/19 | 10 mg | | | | injection 1 dose, Starting Wed | | 08 2:27 | | | | | 10/18/07 at 1009, Until Wed | | PM PDT | | | | | 10/18/07 at 1428 | | | | | | + +-------+ +-------+---+---+ +---+---+ | | | +---+---+ + +-------+ +-------+---+---+ | propofol (aka DIPRIVAN) | Given | 10/22/19 | 50 mg | | | | injection 1 dose, Starting Sun | | 08 3:30 | | | | | 10/22/07 at 0254, Until Sun | | AM PDT | | | | | 10/22/07 at 0449 | | | | | | + +-------+ +-------+---+---+ +---+---+ | | | +---+---+ + +-------+ +-------+---+---+ | propofol (aka DIPRIVAN) | Given | 10/22/19 | 15 mg | | | | injection 1 dose, Starting Sun | | 08 3:15 | | | | | 10/22/07 at 0306, Until Sun | | AM PDT | | | | | 10/22/07 at 0449 | | | | | | + +-------+ +-------+---+---+ +---+---+ | | | +---+---+ + +-------+ +---------+---+---+ | quetiapine (aka SEROQUEL) dose | Given | 10/24/19 | 12.5 mg | | | | 12.5 mg 12.5 mg, oral, TWICE | | 08 8:57 | | | | | DAILY, First dose on Tue10/24/07 | | PM PDT | | | | | at 1815, Until Discontinued | | | | | | + +-------+ +---------+---+---+ +---+---+ | | | +---+---+ + +-------+ +-------+---+---+ | quetiapine (aka SEROQUEL) | Given | 10/28/19 | 25 mg | | | | tablet 25 mg 25 mg, oral, TWICE | | 08 9:00 | | | | | DAILY, First dose (after last | | AM PDT | | | | | modification) on Tue10/25/07 at | | | | | | | 0900, Until Discontinued | | | | | | + +-------+ +-------+---+---+ +-------+ +-------+---+---+ | Given | 10/27/19 | 25 mg | | | | | 08 9:00 | | | | | | PM PDT | | | | +-------+ +-------+---+---+ | Given | 10/27/19 | 25 mg | | | | | 08 9:00 | | | | | | AM PDT | | | | +-------+ +-------+---+---+ +---+---+ | | | +---+---+ + +-------+ +----+---+---+ | racepinephrine (aka VAPONEFRIN) | Given | 10/24/19 | mL | | | | 2.25 % nebulizer solution 1 | | 08 11:15 | | | | | dose, Starting Tue10/24/07 at | | AM PDT | | | | | 1107, Until Tue10/24/07 at 1123 | | | | | | + +-------+ +----+---+---+ +---+---+ | | | +---+---+ + +-------+ +-------+---+---+ | ranitidine (aka ZANTAC) IV 50 | Given | 10/24/19 | 50 mg | | | | mg 50 mg, intravenous, EVERY 8 | | 08 8:00 | | | | | HOURS, First dose on Tue10/18/07 | | AM PDT | | | | | at 0515, Until Discontinued | | | | | | + +-------+ +-------+---+---+ +-------+ +-------+---+---+ | Given | 10/24/19 | 50 mg | | | | | 08 12:00 | | | | | | AM PDT | | | | +-------+ +-------+---+---+ | Given | 10/23/19 | 50 mg | | | | | 08 4:00 | | | | | | PM PDT | | | | +-------+ +-------+---+---+ +---+---+ | | | +---+---+ + +-------+ + +---+---+ | senna-docusate (aka ALIZE S) | Given | 10/20/19 | 1 tablet | | | | 8.6-50 mg 1 Tab 1 tablet, oral, | | 08 9:14 | | | | | TWICE DAILY, First dose on Tue | | PM PDT | | | | | 10/18/07 at 0900, Until | | | | | | | Discontinued | | | | | | + +-------+ + +---+---+ +-------+ + +---+---+ | Given | 10/20/19 | 1 tablet | | | | | 08 9:00 | | | | | | AM PDT | | | | +-------+ + +---+---+ | Given | 10/19/19 | 1 tablet | | | | | 08 9:00 | | | | | | AM PDT | | | | +-------+ + +---+---+ +---+---+ | | | +---+---+ + +-------+ + +---+---+ | senna-docusate (aka ALIZE S) | Given | 11/02/19 | 1 tablet | | | | 8.6-50 mg 1 Tab 1 tablet, oral, | | 08 9:00 | | | | | DAILY, First dose on Tue11/02/07 | | AM PDT | | | | | at 0900, Until Discontinued | | | | | | + +-------+ + +---+---+ +---+---+ | | | +---+---+ + +-------+ +--------+---+---+ | sennosides (aka SENOKOT) liquid | Given | 10/22/19 | 8.8 mg | | | | 8.8 mg 8.8 mg (5 mL), feeding | | 08 8:00 | | | | | tube, TWICE DAILY, First dose on | | PM PDT | | | | | 10/22/07 at 0900, Until | | | | | | | Discontinued | | | | | | + +-------+ +--------+---+---+ +-------+ +--------+---+---+ | Given | 10/22/19 | 8.8 mg | | | | | 08 11:00 | | | | | | AM PDT | | | | +-------+ +--------+---+---+ +---+---+ | | | +---+---+ + +---------+ + + +---+ | sodium acetate-chloride (50:50) | New Bag | 10/18/19 | 1,000 mL | 50 mL/hr | | | 3% IV infusion (hypertonic) | | 08 7:50 | | | | | 1,000 mL, intravenous, | | AM PDT | | | | | CONTINUOUS, Starting 10/18/07 | | | | | | | at 0645, Until Clarisa 10/19/07 at | | | | | | | 0601 | | | | | | + +---------+ + + +---+ +---------+ + + +---+ | New Bag | 10/18/19 | 1,000 mL | 50 mL/hr | | | | 08 6:45 | | | | | | AM PDT | | | | +---------+ + + +---+ +---+---+ | | | +---+---+ + +---------+ +-------+ +---+ | sodium acetate-chloride (50:50) | New Bag | 10/23/19 | 50 mL | 50 mL/hr | | | 3% IV infusion (hypertonic) | | 08 6:51 | | | | | 1,000 mL, intravenous, | | AM PDT | | | | | CONTINUOUS, Starting 10/21/07 | | | | | | | at 2100, Until 10/23/07 at 0744 | | | | | | + +---------+ +-------+ +---+ +---------+ + + +---+ | New Bag | 10/22/19 | 1,000 mL | 75 mL/hr | | | | 08 2:00 | | | | | | PM PDT | | | | +---------+ + + +---+ | New Bag | 10/21/19 | 1,000 mL | 75 mL/hr | | | | 08 11:00 | | | | | | PM PDT | | | | +---------+ + + +---+ +---+---+ | | | +---+---+ + +---------+ +---+ +---+ | sodium acetate-chloride (50:50) | New Bag | 10/25/19 | | 25 mL/hr | | | 3% IV infusion (hypertonic) | | 08 12:15 | | | | | 1,000 mL, intravenous, | | PM PDT | | | | | CONTINUOUS, Starting 10/25/07 | | | | | | | at 1145, Until [facility] 10/26/07 at 0917 | | | | | | + +---------+ +---+ +---+ +---+---+ | | | +---+---+ + +---------+ + + +---+ | sodium acetate-chloride (50:50) | New Bag | 10/21/19 | 1,000 mL | 50 mL/hr | | | 3% IV infusion (hypertonic) | | 08 8:21 | | | | | 1,000 mL, intravenous, | | PM PDT | | | | | CONTINUOUS, Starting 10/21/07 | | | | | | | at 1945, Until 10/21/07 at | | | | | | | 2046 | | | | | | + +---------+ + + +---+ +---+---+ | | | +---+---+ + +-------+ +-----+---+---+ | sodium chloride oral solution 2 | Given | 11/01/19 | 2 g | | | | g 2 g, oral, THREE TIMES DAILY | | 08 12:00 | | | | | WITH MEALS, First dose on Mon | | PM PDT | | | | | 10/30/07 at 1245, Until | | | | | | | Discontinued | | | | | | + +-------+ +-----+---+---+ +-------+ +-----+---+---+ | Given | 11/01/19 | 2 g | | | | | 08 7:30 | | | | | | AM PDT | | | | +-------+ +-----+---+---+ | Given | 10/31/19 | 2 g | | | | | 08 5:00 | | | | | | PM PDT | | | | +-------+ +-----+---+---+ +---+---+ | | | +---+---+ + +-------+ +--------+---+---+ | succinylcholine (aka ANECTINE) | Given | 10/22/19 | 120 mg | | | | injection 1 dose, Starting Sun | | 08 3:00 | | | | | 10/22/07 at 0254, Until Sun | | AM PDT | | | | | 10/22/07 at 0450 | | | | | | + +-------+ +--------+---+---+ +---+---+ | | | +---+---+ + +-------+ + +---+---+ | vancomycin (aka VANCOCIN) IV | Given | 10/23/19 | 1,000 mg | | | | (ADD-vantage) 1,000 mg 1,000 mg | | 08 10:00 | | | | | (1 g), intravenous, EVERY 12 | | AM PDT | | | | | HOURS, First dose on 10/21/07 | | | | | | | at 2200, Until Discontinued | | | | | | + +-------+ + +---+---+ +-------+ + +---+---+ | Given | 10/22/19 | 1,000 mg | | | | | 08 10:00 | | | | | | PM PDT | | | | +-------+ + +---+---+ | Given | 10/22/19 | 1,000 mg | | | | | 08 11:30 | | | | | | AM PDT | | | | +-------+ + +---+---+ +---+---+ | | | +---+---+ + +-------+ + +---+---+ | vancomycin (aka VANCOCIN) IV | Given | 10/24/19 | 1,000 mg | | | | (ADD-vantage) 1,000 mg 1,000 mg | | 08 2:00 | | | | | (1 g), intravenous, EVERY 8 | | AM PDT | | | | | HOURS, First dose on 10/23/07 | | | | | | | at 1800, Until Discontinued | | | | | | + +-------+ + +---+---+ +-------+ + +---+---+ | Given | 10/23/19 | 1,000 mg | | | | | 08 6:00 | | | | | | PM PDT | | | | +-------+ + +---+---+ +---+---+ | | | +---+---+ documented in this encounter
--- OUTSIDE RECORDS SUMMARY | ~2019-10-16 | XMS | Encounter Summary ---
Demographics + + + | Address | [address] | | | [place] [address] | + + + | Home Phone [...] Team Providers + +------+ + | Care Container Filler Name | Role | Phone | + [...] | | | | | | | [facility] | | | | | | | [place], | | | | | | | [place] [address] | | | | | | | Phone: | | | | | | | [phone] | | | | | | | Fax: | | | | | | | [phone] | +--------+--------+ + + + + Encounter Details +--------+ + + + + | Date | Type | Department | Care Team | Description | +--------+ + + + + | 10/17/ | Hospital | [facility] [address] | Magnolia Diego MD | | | 2007 - | Encounter | [address] | [address] | | | | | [id number] [facility] | [facility] [place] | | | 11/01/ | | HOSPITAL [place], | [address] | | | 2007 | | [place] [address] | [phone] | | | | | [phone] | | | +--------+ + + + [...] found to have SAH & transferred to [facility]. Pt was intubated and admitted to the [...] Take until gone. Get filled a t [facility]. 100 0 oxycodone immediate release 5 mg Oral Tablet 5-15 mg Oral EVERY 3 HOURS NEEDED 200 0 pravastatin 20 mg Oral Tablet 2 Tab Oral AT BEDTIME until gone 30 0 Current Medication List Not on File Diet: Rec start [facility] soft diet with thin liquids [...] in 2 weeks, please call for appointment: [phone] Follow Up Tests: (Tests at [facility] must be entered into [facility]) Condition On Discharge: stable Vital Signs [...] found to have SAH & transferred to [facility]. Pt was intubated and admitted to the ICU, pt got left subclavian triple lumen catheter and bronchoscopy. Pt was taken to the [facility] for clipping of aneurysm for the SAH. Speech therapy, physical therapy, occupation al therapy saw patient. They seemed that she had SNF level needs however no funding. The Tom Xavier spoke extensively with the , Hu, who understands that she ll need [address] home. Discharge Medications: Current Medication List Not on File Diet: Rec start [facility] soft diet with thin liquids [...] in 2 weeks, please call for appointment: [phone] Follow Up Tests: (Tests at [facility] must be entered into [facility]) Condition On Discharge: stable Vital Signs [...] printed education materials: nimodipine ins tructions from [employer] and [employer]. Review with patient/family: Understanding of disease/injury/surgical repair: Yes Signs/symptoms that they should report: Yes Understanding of medications and side effects: Yes Activity and diet instructions: Yes Follow-up appointments:Yes Any concerns/fears: Yes Smoking Cessation Counseling/Information was given: Not applicable Additional Instructions: (ex: wound care, tube feeding, trach care, CBG monitoring etc.) If you have any questions or concerns please call Neurosurgery at [phone] any time of day. If you notice [...] Tomorrow. Will f/u as needed. Time spent: 5557 - 5492 LIZ RAÍMREZ OT [facility] [address] [place] [address] oMaddy pedraza - 10/22 11:35 AM PDTPT [...] without UE support of FWW with mod FULL STACK DEVELOPER of 1 with R trunk danny n and unsteadiness. Transfers min assist with FWW with verbal cues to direct pt with distra ctions. Gait for 90 ft with min assist up to mod assist with FWW with pt getting walker too far ahead and unsteadiness, R trunk lean. Gait without FWW with mod oven heater of 1. Assessment: Impression: Pt with motor [...] ft x 1 with min to moderate FULL STACK DEVELOPER of 1 with R sidebending and trunk [...] Management Discharge Plan Needs: Nimodipine Details:Referral to [facility] Medication Assistance Program(MAP); application in process Transportation:Daughter Linda Comments: Unable to assist with obtaining pain medications , other Medications for Dc are a vailable OTC or are on Low cost lists at [facility] or [facility] and do not have a Med Assist aven ue. Spouse to access equipment for the home on his own today and pt [place] [id number] hanna Salinas - 008 11:53 AM PDT [...] discharge plan: TBD Communication / Other: Language: Jamaican Hearing: WFL Vision: eyeglasses See documentation flowsheet [...] with patient and family. Shanna Augustin, PhD, [facility]-PROFESSOR OF INDUSTRIAL TECHNOLOGY Pager [phone] 10/31/2007 Shanna Fernandez - Angie 10/31/2007 11:49 [...] resu lts and goals. Shanna Augustin, PhD, CCC-PROFESSOR OF INDUSTRIAL TECHNOLOGY Pager [phone] Pushpa Mcnamara - 10/30 11:49 AM PDTSpoke [...] session: ADL mobility and ADLs. Time spent: 50 - 9347 LIZ RAMÍREZ OT [facility] [address] [place], [place] [id number] atsnirav, Kita - 008 7:56 AM PDT Neurosurgery General Store Manager Progress Note Hospital Day:13 Author; KITA BUTLER [...] training goals? And DC recommendations. Marleny Chu, SEXUAL ASSAULT COUNSELOR [phone] Seen from [phone] Arlette Simental - 2007 5:21 PM PDTNSICU [...] recommends ideally SNF placement. Case reviewed with LOG CLERK. Insurance/Funding: No funding at this time. FMS involved. Patient will not qualify for [facility] caid. Discharge Counseling: TC to at home: Non-urgent voicemail left to return my call re garding discussing future plans for when his goes home. Also, I notified him by message that his is ready to transfer to [facility]. A similar message was also left on his cell phon e. Assessment: Discharge to home with 24 hour assistance. Pt does not have insurance for SNF p lacement. Plan. 1. To transfer to [facility] when a bed is available. 2.Caregiver teaching with PT, OT and raine seth. 3. Care Management will follow. Arlette Lee RN, GNP pgr [phone]. andida Puckett - 10/30/2007 12:37 PM PDT [...] ; start po NaCl 2g TID Hemodyn: equipment monitor phototypesetting ; Pulmo: Keep SpO2 > 95% GI: ADAT, PPI I/O: goal: Euvolemia for next 24hr, Na-goal: >135 ; ID: follow leucocytosis, temperatures Other: Needs aggressive PT/OT CCT: 37 minutes Candida Puckett Isis Wolf CCC-PROFESSOR OF INDUSTRIAL TECHNOLOGY - 10/30/2007 11:54 AM PDTSpeech Language Pathology [...] Time Out : 11:55 P: Continue per PROFESSOR OF INDUSTRIAL TECHNOLOGY POC Isis Wolf M.S., CCC-PROFESSOR OF INDUSTRIAL TECHNOLOGY #[id number] ISIS WOLF 09/04/2007 hea Ivory - 11:42 AM PDTOT Treatment: ([id number]) S: Pt with no c/o pain. A [...] at this time. Thea Ivory, OTR/ L [id number] un, [employer] - 10/30/2007 5:19 AM PDT [...] Stain ...........: Gram smear performed at [facility]. Culture: Preliminary Report: No growth after 1 [...] Neuro intact. Will likely to transfer to [facility] today. PT/OT. José Miguel Kim - 10/29/19 [...] and with 1:1 supervision. P: Continue per PROFESSOR OF INDUSTRIAL TECHNOLOGY POC Time In:815 Time Out:845 Silvia Salazar M.S. CF-PROFESSOR OF INDUSTRIAL TECHNOLOGY #[id number] Electronically signed by Isis Wolf [facility]-PROFESSOR OF INDUSTRIAL TECHNOLOGY at 11/02/2007 7:17 AM PDTMusolomonGertrude rodgers - 08/2007 7:04 AM PDT ICU [...] Stain ...........: Gram smear performed at [facility]. Culture: Preliminary Report: No growth after 1 [...] Stain ...........: Gram smear performed at [facility]. Culture: Final Report: No growth after 3 days. Final Report 10/22/07 CSF Culture Source...............: Cerebrospinal Fluid RLB Gram Stai n...........: Gram smear performed at [facility]. Culture: Final Report: No growth afte r 3 days. Final Report 10/22/07 Blood Culture Source..................: Central Line Blood Result. .................. Final: No growth at 5 days. 10/19/07 CSF Culture Source...............: Ventricular Fluid Cerebrospinal Flu id RLB Gram Stain...........: Gram smear performed at [facility]. Culture: Final Repo rt: No growth after [...] CSF protein 78, WBC 23 and RBC [address]. TCD pending. CT showed the hydrocephalus is [...] continues to be drowsy. OT working with [facility] ed endurance and balance - preliminary recommendation [...] will follow. 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 Has increased difficulty with extra stimu li in the room. Lens Dotter Memory: not formally tested, appears WNL for [...] per PM nurse. Pt orien eli to [place], [place]. Pt did not respond to further [...] evaluation if/when appropriate Time In: 7:30-Time Out-8:00 Diego Bliss MA,CCC-PROFESSOR OF INDUSTRIAL TECHNOLOGY Speech Language Pathology [phone] 10/27/2007 urrow, Gertrude - 06/2007 7:25 AM [...] Stain ...........: Gram smear performed at [facility]. Culture: Preliminary Report: No growth after 1 day. Culture examined daily. Report will be updated if growth occurs. Further report to follow. 10/22/07 CSF Culture Source...............: Cerebrospinal Fluid RLB Gram Stai n...........: Gram smear performed at [facility]. Culture: Final Report: No growth afte r 3 days. Final Report 10/22/07 Blood Culture Source..................: Central Line Blood Result. .................. Preliminary: No growth at 4 days. 10/19/07 CSF Culture Source...............: Ventricular Fluid Cerebrospinal Flu id RLB Gram Stain...........: Gram smear performed at [facility]. Culture: Final Repo rt: No growth after [...] Stain ...........: Gram smear performed at [facility]. Culture: Preliminary Report: No growth after 1 [...] 7.47* PCO2 29* PO2 72 HCO3 21 [id number] 22 T1RYDXPP 95.1 [id number] -- FIO2 .4 Chemistries Last 96 Hours [...] confused but pleasant Communication / Other: Language: Jamaican Dentures: N/A Hearing: WFL Vision: WFL Cognitive Screen: Level of alertness: Verbalizes; requres cues to maintain alertness Orientation: Person and year (not month or date) Quality of responses: Impulsive and Confused Command following: Patient follows 75% of commands with minimal verbal cues. Lens Dotter Memory: not formally tested Short Term Memory: [...] appropriate Time In: 8:15-Time Out-8:40 Diego Bliss MA,CCC-PROFESSOR OF INDUSTRIAL TECHNOLOGY Speech Language Pathology [phone] 10/26/2007 Gertrude Coleman 05/2007 6:40 AM PDT [...] 7.47* PCO2 29* PO2 72 HCO3 21 [id number] 22 W8BZFTLE 95.1 W2GSQPVTC -- FIO2 .4 Chemistries Last 96 Hours [...] Stain ...........: Gram smear performed at [facility]. Culture: Preliminary Report: No growth after 1 day. Culture examined daily. Report will be updated if growth occurs. Further report to follow. 10/22/07 CSF Culture Source...............: Cerebrospinal Fluid RLB Gram Stai n...........: Gram smear performed at [facility]. Culture: Final Report: No growth afte r 3 days. Final Report 10/22/07 Blood Culture Source..................: Central Line Blood Result. .................. Preliminary: No growth at 3 days. 10/19/07 CSF Culture Source...............: Ventricular Fluid Cerebrospinal Flu id RLB Gram Stain...........: Gram smear performed at [facility]. Culture: Final Repo rt: No growth after [...] Stain ...........: Gram smear performed at [facility]. Culture: Preliminary Report: No growth after 1 [...] comm artery aneurysm PMH COPD, HTN, GERD Diet:[facility] soft TF Rx Nutren 1.5@ 35 I/O [...] Ht. 66" Wt 56.8 kg Energy needs: 6671-5411 Kcal( 25-30 Kcal/kg) Protein needs: 74-85 Gm Pro (1.3-1.5 Gm pro/kg) Recommendations for Tube Feeding Product Nutren 1.5 Goal rate 35 Provides 1260 kcal and 50 gm protein Plan While pt still agitated, TF to continue as back-up per PROFESSOR OF INDUSTRIAL TECHNOLOGY eval Monitor po intake may consider nocturnal TF #[id number] Electronically sign ed by Amelie Byrne at [...] 5. Cognitive evaluation if/when appropriate Diego Bliss MA,CCC-PROFESSOR OF INDUSTRIAL TECHNOLOGY Speech Language Pathology -[phone] 10/25/2007 iego Bliss - 11:57 AM PDTSpeech Pathology: New orders received and appreciated. ST attempted t o see pt for session. Pt extremely agitated. Nsg requested ST reattempt this afternoon fol lowing administration of medications. ST to follow as able. Thanks, Diego Bliss MA,CCC-PROFESSOR OF INDUSTRIAL TECHNOLOGY Speech Pathology ksana Das - 10/25/2007 11:08 [...] Stain ...........: Gram smear performed at [facility]. Culture: Preliminary Report: No growth after 1 day. Culture examined daily. Report will be updated if growth occurs. Further report to follow. 10/22/07 CSF Culture Source...............: Cerebrospinal Fluid RLB Gram Stai n...........: Gram smear performed at [facility]. Culture: Final Report: No growth afte r 3 days. Final Report 10/22/07 Blood Culture Source..................: Central Line Blood Result. .................. Preliminary: No growth at 2 days. 10/19/07 CSF Culture Source...............: Ventricular Fluid Cerebrospinal Flu id RLB Gram Stain...........: Gram smear performed at [facility]. Culture: Final Repo rt: No growth after [...] likely effusion GI: Feeding: TF pending, passed [facility] soft swallow study, cont TF [...] Stai n...........: Gram smear performed at [facility]. Culture: Preliminary Report: No growt h after [...] minimal spasm. Continue SAH protocol. Isis Spaulding CCC-PROFESSOR OF INDUSTRIAL TECHNOLOGY - 008 4:29 PM PDT Speech Dysphagia [...] discharge plan: TBD Communication / Other: Language: Jamaican Hearing: WFL Vision: eyeglasses See documentation flowsheet for vitals and pain assessment/response. Cognitive Screen Level of alertness: alert 100% of visit Orientation: Person Quality of responses: Appropriate with cues, Impulsive and Confused Command followin step oral motor 100% without cues Fdc Memory: not formally tested Short Term Memory: [...] 16:00 Time Out: 16:30 Isis Wolf M.S., CCC-PROFESSOR OF INDUSTRIAL TECHNOLOGY #[id number] osé Miguel Das - 10/24/2007 1:17 PM [...] 61* HCO3 27 27 25 23 24 [id number] 28 28 26 24 25 I9MJNOLT 98.7* 82.5* 98.5* 97.1 92.0 R0QGCCLPK -- -- -- -- -- FIO2 NG [...] with discharge planning. Arlette Lee RN, G LEARNING SUPPORT RESOURCE ROOM TEACHER pgr [phone]. Oksana De La Rosa - 10/24/2007 9:18 [...] 86 HCO3 21 27 27 25 23 MFQZX4VUT 22 28 28 26 24 H2HJSAWX 95.1 98.7* 82.5* 98.5* 97.1 GI: soft, [...] Stai n...........: Gram smear performed at [facility]. Culture: Preliminary Report: No growt h after 1 day. Culture examined daily. Report will be updated if growth occurs. Further report to follow. 10/22/07 Blood Culture Source..................: Central Line Blood Result. .................. Preliminary: No growth at 1 day. 10/19/07 CSF Culture Source...............: Ventricular Fluid Cerebrospinal Flu id RLB Gram Stain...........: Gram smear performed at [facility]. Culture: Final Repo rt: No growth after [...] Stai n...........: Gram smear performed at [facility]. Culture: Preliminary Report: No growt h after [...] 61* HCO3 27 27 25 23 24 VJPQH8FHP 28 28 26 24 25 P1LFVUVS 98.7* 82.5* 98.5* 97.1 92.0 I7BMAJRVA -- -- -- -- -- FIO2 NG [...] 61* HCO3 27 27 25 23 24 MJPTE7RXJ 28 28 26 24 25 D3OSVWGI 98.7* 82.5* 98.5* 97.1 92.0 A8IBANVUX -- -- -- -- -- FIO2 NG [...] Stai n...........: Gram smear performed at [facility]. Culture: Preliminary Report: No growt h after [...] 61* HCO3 27 27 25 23 24 UNNTN3RWX 28 28 26 24 25 Q1UKWVFI 98.7* 82.5* 98.5* 97.1 92.0 A0SGCJWYT -- -- -- -- -- FIO2 NG 100 100 NG NG Assessment and Plan: 57F with respiratory failure s/p crani and clipping for AComm Art. Ane urysm -- Follow-up TCD's -- Continue ventilatory support, abx, gentle diuresis Will d/w staff Thea Mcmahon - 10/23/19 08 9:54 AM PDTSpeech Language Pathology- Contact Note: Pt now intubated. Will sign off. P lease re-order PROFESSOR OF INDUSTRIAL TECHNOLOGY for speech and swallowing services once extubated and appropriate. Thank you. THEA LIMA M.A., [facility]-PROFESSOR OF INDUSTRIAL TECHNOLOGY Speech Language Pathologist Pgr: [phone] Humble Mcgrath CLAIM CLINICIAN - 0 10/23/2007 9:43 AM PDTSBT done, pt quite aggitated at this time. Celebration score was good at 47 but pt [...] 61* HCO3 27 27 25 23 24 BQVWW6ODX 28 28 26 24 25 U7EOAGBH 98.7* 82.5* 98.5* 97.1 92.0 GI: stooling, [...] Stain...........: Gram smear performed at [facility]. Culture: Final Repo rt: No growth after [...] vasospasm risk. -hyperna- d/c 3% ID/HO: -R Kelly site- ? W/ oozing and erythemaa= change [...] Spells with increased urine output last night (WALLPAPER INSPECTOR AND SHIPPER ?) ; SG urine = normal ; Na 146 ; on 3% 75/hr ; I/O neg 300ml/24hr, 5.6 L positive for hospital stay ; EVD 10-15 ml/hr (350/24hr) @ 10 cm DVT scan negative Current ICU problem list: SAH, cerebral vasospasm: Neuro checks q1, TDS daily, WALLPAPER INSPECTOR AND SHIPPER watch ; q6h Na/K, cont propofo l & fentanyl drip ; sedation vac x2/ day (6am/6pm) ; per neurosurg EVD increased to 15cm equipment monitor phototypesetting ; SBP: 120-150, HR <100/min (aspiration) pneumonia: [...] Stain...........: Gram smear performed at [facility]. Culture: Preliminar y Report: No growth after 1 day. Culture examined daily. Report will be updated if growth occurs. Further report to follow. Up to Last 5 ABGs in 72 hours: Recent Labs Basename 10/22/07 0130 10/21/07 2200 10/21/07 0300 PH 7.49* 7.51* 7.45* PCO2 31* 31* 33 PO2 86 61* 63* HCO3 23 24 23 [id number] 24 25 24 B3AXWXVW 97.1 92.0 92.1 K2SHVLLYF -- -- -- FIO2 NG NG 6L [...] and 2 oz of puree (oatmeal from [facility] soft mealtray). + oral containm ent and adequate oral prep despite obvious fatigue. + timely swallow response. - cough, - c corbin, - change in voice, - aud pharyngeal pooling, - throat clearing. O2 sats remained betw een 93-96% (with PROFESSOR OF INDUSTRIAL TECHNOLOGY replacing O2 mask between PO trials). No [...] (Not addressed 10/21/07) P: Recommendations: 1. Continue [facility] soft diet with thin liquids. - upright positioning and 1:1 supervision and assistance with all POs please 2. Will f/u 5x/week for dysphagia therapy services as well as completition of cognitive, sp eech, lang eval as appropriate. (time in: 1000, time out: 1025) THEA LIMA M.A., CCC-PROFESSOR OF INDUSTRIAL TECHNOLOGY Speech Language Pathologist Pgr: [phone] THEA LIMA CCC-S/LP 10/21/2007 raCandida tineo 9:44 [...] ICU problem list: Neuro checks, TDS daily, WALLPAPER INSPECTOR AND SHIPPER watch equipment monitor phototypesetting [place] SpO2 > 95%, O2 nc, RT [...] 63* 143* 207* HCO3 23 25 23 [id number] 24 26 24 X0VPEMBV 92.1 99.0* 99.3* N2JVZEJBX -- -- -- FIO2 6L simple mask [...] Stain...........: Gram smear performed at [facility]. Culture: Preliminar y Report: No growth after [...] decubitus ulcer prevention. Routine ICU Care: Lines: Kelly, CVC Sodium goal: 145-155 Feeding: soft mech [...] found to have a SAH. Transferred to [facility] for care. Now s/p A-com aneurysm c [...] go home now." Communication / Other: Language: Jamaican Dentures: Upper denture plate- owns and has. Natural lower dentition in fair condition. Hearing: WFL Vision: eyeglasses See documentation flowsheet for vitals and pain assessment/response. Cognitive Screen Level of alertness: verbalizes Orientation: Person and Time; for PLACE answered "[place]" but unable to provide correct hospital name. "I don't know." for REASON Quality of responses: Intermittently Appropriate with cues but also confused and persever ative Command following: Followed 6/7 1-step oral motor commands Fdc Memory: not formally tested Short Term Memory: [...] patient and Horacio Rm. Recommendations: 1. Begin [facility] soft diet with thin liquids. - 1:1 assistance with all meals. - 90 degree upright positioning with all meals - check for oral pocketing/residue after meals and use liquid washdown to clear 2. Will f/u 5x/week for dysphagia tx and initiation of speech, language, cognitive eval as appropriate. (time in: 1015, time out: 1100) THEA LIMA M.A., CCC-PROFESSOR OF INDUSTRIAL TECHNOLOGY Speech Language Pathologist Pgr: [phone] THEA LIMA CCC-S/LP 10/20/2007 Candida Fields 10:14 [...] A-com a neurysm clipping ; suspicious for senior examiner involvement ; angio today Last 24 hours: neuro intact, successfully extubated, hemodynamically stable ; EVD: 218ml/2 4hr, anemia, Current ICU problem list: Cont. EVD ; daily TCD ; q1 neuro checks equipment monitor phototypesetting ; ECHO: hyperdynam, hypovomaemia, SBP > 120-180 [...] 43 PO2 143* 207* HCO3 25 23 [id number] 26 24 X5AYZCAK 99.0* 99.3* T0CVEQOSS -- -- FIO2 .6 80 Chemistries Last [...] Stain...........: Gram smear performed at [facility]. Culture: Preliminar y Report: No growth after [...] Stain...........: Gram smear performed at [facility]. Culture: Preliminar y Report: No growth after 1 day. Culture examined daily. Report will be updated if growth occurs. Further report to follow. Up to Last 5 ABGs in 72 hours: Recent Labs Basename 10/19/07 0148 10/18/07 0820 PH 7.36* 7.34* PCO2 45* 43 PO2 143* 207* HCO3 25 23 ZQUKY3CHM 26 24 Q1RTDFGX 99.0* 99.3* G9SGOAGLL -- -- FIO2 .6 80 Last Ventilator [...] A-com ane urysm clipping ; suspicious for senior examiner involvement ; angio today Last 24 hours: improved, follows commands Current ICU problem list: EVD ; daily TCD ; Angio today to eval OWEN/perforators equipment monitor phototypesetting ; ECHO today to determine card function [...] ground unconscious. The family took her to [facility] ED in [place] where she was fo und to have a SAH. Transferred to [facility] for care. Course: Intubated and on the ventilator. Aspiration. Bronchoscopy done. For angio today. Wi ll wean to extubate after angio. LOG CLERK involved. Funding/Insurance: None noted. Home Environment/Equipment: To be assessed. Family/Informal Support System: . , daughter and son-in-law listed as emergen cy contacts. Have come up to [facility]. Needs further assessment. Baseline Function: To be determined. Assessment: Critically ill. Unable to determine discharge plan at this time. PLAN: 1. Angio today. 2. Care Management will follow for timely discharge. Arlette hernandez RN, GNP pgr [phone]. iu Peter Daniel - 10/19/2007 10:47 AM PDTThis patient was treated on the Interventional Neuror adiology (INR) service and we appreciate being involved in the care. If you have any questio ns please do not hesitate to call or page us. Peter Urbina M.D. (pager [phone]) Bob Peraza M.D., Ph.D. Aneurysm well occluded, [...] 43 PO2 143* 207* HCO3 25 23 FAXKQ9VRK 26 24 L8ZJPJYI 99.0* 99.3* A7DVDRIYO -- -- FIO2 .6 80 Last Ventilator [...] and plan of care. MAGNOLIA DIEGO MD [facility] 7C NEURO SCI ICU [address] [place] [address] hemay - 1:07 AM PDTPOST OP note: [...] found to have SAH & transferred to [facility]. Given additional vecuronium and midaz approx 20 [...] PDTSocial Work Note: Pt was transferred to [facility] from [facility] after suffering a subarachnoid hemorrhage. Pt is currently intubated. LOG CLERK met briefly with Pt's daughter - Linda and [id number] on the 7th floor waiting room while they waited to hear whether or not Pt would go to the [facility]. Pt's was not available at the time. LOG CLERK explained social work role at [facility] and contact info given. Family also given a hotel packet and info re RV spots on campus. LOG CLERK w ill follow as needed. Danni Collins LOG CLERK #[id number] signed by Danni Collins at 008 4:00 [...] was intubated, deep suctioned and transferred to [facility] for further care. PMH: HTN, COPD, Asthma, [...] and plan of care. MAGNOLIA DIEGO MD [facility] 7C NEURO SCI ICU [address] [facility] [address] [facility] [place] [address] Kody Calderon - 10/18/2007 4:15 AM PDT [...] found to have SAH & transferred to [facility]. Given additional vecuronium and midaz approx 20 [...] 12:00 AM BENNY ssociated Order(s): OPERATION RECORD [id number] ONOFRE CASTRO [id number] Date: 10/18/2007 Attending Surgeon: Magnolia Diego M.D. Lift Manager(s): Xochitl Davis M.D. Preoperative Diagnosis(es): Subarachnoid hemorrhage [...] aneurysm. Narinder Serrano M.D. VITALIY / ELINA [id number] / [id number] / [id number] / oMagnolia martell - 09/22 12:00 AM PDTAssociated Order(s): TEACHING PHYSICIAN [id number] ONOFRE CASTRO [id number] Date: 10/18/2007 Attending Surgeon: Magnolia Diego M.D. Lift Manager(s): Narinder Serrano M.D. Preoperative Diagnosis(es): Subarachnoid hemorrhage [...] Xochitl Davis. Magnolia Diego M.D. AD / [id number] / [id number] / [id number] / documented in this encounte r Miscellaneous [...] 11/02/2007 2:59 PM PDT Scan - Other, [facility] - 11/02/2007 2:59 PM PDT Scan - [...] also dumping increasing amounts of urine. 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 Have sent urine SG and [...] [facility] | [address] | [place], [place] | | | THERAPY | [address] | [address] | | + + + + + | [facility] | [address] | [place], [place] | | | THERAPY | [address] [facility] | [address] | | + + + + + [...] [facility] | [address] | [place], [place] | | | THERAPY | [address] | [address] | | + + + + + | [facility] | [address] | [place], [place] | | | THERAPY | [facility] | [address] | | + + + + + [...] [facility] | [address] | [place], [place] | | | THERAPY | [address] | [address] | | + + + + + | [facility] | [address] | [place], [place] | | | THERAPY | [facility] | [address] | | + + + + + [...] [facility] | [address] | [place], [place] | | | THERAPY | [address] | [address] | | + + + + + | [facility] | [address] | [place], [place] | | | THERAPY | [facility] | [address] | | + + + + + [...] [facility] | [address] | [place], [place] | | | THERAPY | [address] | [address] | | + + + + + | [facility] | [address] [facility] | [place], [place] | | | THERAPY | [address] | [address] | | + + + + + [...] [facility] | [address] | [place], [place] | | | THERAPY | [address] | [address] | | + + + + + | [facility] | [address] [facility] [address] | [place], [place] | | | THERAPY | [address] | [address] | | + + + + + [...] [facility] | [address] | [place], [place] | | | THERAPY | [facility] | [address] | | + + + + + | [facility] | [address] | [place], [place] | | | THERAPY | [facility] | [address] | | + + + + + [...] + + | [facility] | [address] | [place], [place] | | | THERAPY | [address] | [address] | | + + + + + | [facility] | [address] | [place], [place] | | | THERAPY | [address] | [address] | | + + + + + [...] | + + + + + | [facility] | [address] [facility] | [place] [address] | | | PATHOLOGY | [address] | | | + + + + + | [facility] | [address] [place] [address] | [place] [address] | | | PATHOLOGY | [address] [...] + + + + | [facility] DEPARTMENT OF | [address] | [place] [address] | | | PATHOLOGY | [address] | | | + + + + + | [facility] DEPARTMENT OF | [facility] | [place] [address] | | | PATHOLOGY | [address] [...] DEPARTMENT OF | [address] | [place] [address] | | | PATHOLOGY | [address] | | | + + + + + | [facility] DEPARTMENT | [address] | [place] [address] | | | PATHOLOGY | [address] [...] [facility] | [address] | [place], [place] | | | THERAPY | [address] | [address] | | + + + + + | [facility] | [address] | [place], [place] | | | THERAPY | [address] | [address] | | + + + + + [...] + + | [facility] | [address] [facility] [address] | [place], [place] | | | THERAPY | [address] | [address] | | + + + + + | [facility] | [address] | [place], [place] | | | THERAPY | [address] | [address] | | + + + + + [...] DEPARTMENT OF | [address] | [place] [address] | | | PATHOLOGY | [address] | | | + + + + + | [facility] DEPARTMENT OF | [address] | [place] [address] | | | PATHOLOGY | [address] [...] DEPARTMENT OF | [address] | [place] [address] | | | PATHOLOGY | [address] | | | + + + + + | [facility] DEPARTMENT OF | [address] | [place] [address] | | | PATHOLOGY | [address] [...] | 60 - 99 mg/dL | [facility] | | | PLASMA | | | [...] + + + + | [facility] DEPARTMENT OF | [address] | [place] [address] | | | PATHOLOGY | [address] | | | + + + + + | [facility] DEPARTMENT OF | [address] | [place] [address] | | | PATHOLOGY | [address] [...] | + + + + + | [facility] | [address] | [place] [address] | | | PATHOLOGY | [address] | | | + + + + + | [facility] | [address] | [place] [address] | | | PATHOLOGY | [address] | | | + + + + + [facility] PORTABLE TRANSCRANIAL DOPPLER COMPLETE (10/31/2007 1:39 AM PDT) + + + + + + | Component | Value | Ref Range | Performed | Pathologist | | | | | At | Signature | + + + + + + | [facility] LAB | Med Rec No:[id number] | | | | | PORTABLE | [...] AMAccession | | | | | | #[id number]:TRANSCRAN | | | | | | IAL [...] | | | | | UNSIGNED / O'Fife Rula | | | | + + [...] | | THERAPY | | | | CLAIM CLINICIAN | | | | + + + [...] [facility] | [address] | [place], [place] | | | THERAPY | [address] | [address] | | + + + + + | [facility] | [address] | [place], [place] | | | THERAPY | [address] | [address] | | + + + + + [...] + + + + | [facility] DEPARTMENT OF | [address] | [place] [address] | | | PATHOLOGY | [address] | | | + + + + + | [facility] DEPARTMENT OF | [address] | [place] [address] | | | PATHOLOGY | [address] [...] DEPARTMENT OF | [address] | [place] [address] | | | PATHOLOGY | [address] | | | + + + + + | [facility] DEPARTMENT | [address] | [place] [address] | | | PATHOLOGY | [address] [...] + + + + | [facility] DEPARTMENT OF | [facility] | [place] [address] | | | PATHOLOGY | [address] | | | + + + + + | [facility] DEPARTMENT OF | [address] | [place] [address] | | | PATHOLOGY | [address] [...] Samaniego, | | | | | | CLAIM CLINICIAN | | | | + + + [...] + + | [facility] | [address] [facility] [address] | [place], [place] | | | THERAPY | [address] | [address] | | + + + + + | [facility] | [address] | [place], [place] | | | THERAPY | [facility] | [address] | | + + + + + [...] [facility] | [address] | [place], [place] | | | THERAPY | [address] | [address] | | + + + + + | [facility] | [address] | [place], [place] | | | THERAPY | [facility] | [address] | | + + + + + [...] + | [facility] DEPARTMENT OF | [address] [facility] | [place] [address] | | | PATHOLOGY | [address] | | | + + + + + | [facility] DEPARTMENT OF | [address] | [place] [address] | | | PATHOLOGY | [address] [...] DEPARTMENT OF | [address] | [place] [address] | | | PATHOLOGY | [address] | | | + + + + + | [facility] DEPARTMENT | [address] | [place] [address] | | | PATHOLOGY | [address] [...] DEPARTMENT OF | [address] | [place] [address] | | | PATHOLOGY | [address] | | | + + + + + | [facility] DEPARTMENT OF | [address] | [place] [address] | | | PATHOLOGY | [address] [...] | + + + + + | [facility] | [address] [facility] | [place] [address] | | | PATHOLOGY | [address] | | | + + + + + | [facility] | [address] [facility] | [place] [address] | | | PATHOLOGY | [address] [...] + + | [facility] | [address] [facility] | [place], [place] | | | THERAPY | [address] | [address] | | + + + + + | [facility] | [address] [facility] | [place], [place] | | | THERAPY | [address] | [address] | | + + + + + [...] + + + + | [facility] DEPARTMENT OF | [address] [facility] | [place] [address] | | | PATHOLOGY | [address] | | | + + + + + | [facility] DEPARTMENT OF | [address] [facility] | [place] [address] | | | PATHOLOGY | [address] [...] [place], | | | | | | CLAIM CLINICIAN | | | | + + + [...] + + | [facility] | [address] [facility] | [place], [place] | | | THERAPY | [address] | [address] | | + + + + + | [facility] | [address] [facility] [address] | [place], [place] | | | THERAPY | [address] | [address] | | + + + + + [...] | + + + + + | [facility] | [address] | [place] [address] | | | PATHOLOGY | [address] | | | + + + + + | [facility] | [address] | [place] [address] | | | PATHOLOGY | [address] [...] | + + + + + | [facility] | [address] [facility] | [place] [address] | | | PATHOLOGY | [address] | | | + + + + + | [facility] | [address] [place] [address] | [place] [address] | | | PATHOLOGY | [address] [...] DEPARTMENT OF | [address] | [place] [address] | | | PATHOLOGY | [address] | | | + + + + + | [facility] DEPARTMENT OF | [address] | [place] [address] | | | PATHOLOGY | [address] [...] + + + + | [facility] DEPARTMENT OF | [address] | [place] [address] | | | PATHOLOGY | [address] | | | + + + + + | [facility] DEPARTMENT OF | [address] | [place] [address] | | | PATHOLOGY | [address] [...] | + + + + + | [facility] | [address] | [place] [address] | | | PATHOLOGY | [address] | | | + + + + + | [facility] | [address] [place] [address] [address] | [place] [address] | | | PATHOLOGY | [address] | | | + + + + + [facility] PORTABLE TRANSCRANIAL DOPPLER COMPLETE (10/30/2007 1:44 AM PDT) + + + + + + | Component | Value | Ref Range | Performed | Pathologist | | | | | At | Signature | + + + + + + | [facility] | Med Rec No:[id number] | | | | | PORTABLE | [...] AMAccession | | | | | | #[id number]:TRANSCRAN | | | | | | IAL [...] | | | | | UNSIGNED / O'Fife Rula | | | | + + [...] + + | [facility] | [address] [facility] | [place], [place] | | | THERAPY | [employer] [facility] | [address] | | + + + + + | [facility] | [address] [facility] | [place], [place] | | | THERAPY | [facility] | [address] | | + + + + + [...] + + + + | [facility] DEPARTMENT OF | [facility] | [place] [address] | | | PATHOLOGY | [address] | | | + + + + + | [facility] DEPARTMENT OF | [address] [facility] | [place] [address] | | | PATHOLOGY | [address] [...] + + + + | [facility] DEPARTMENT OF | [address] [facility] | [place] [address] | | | PATHOLOGY | [address] | | | + + + + + | [facility] DEPARTMENT OF | [address] | [place] [address] | | | PATHOLOGY | [address] [...] DEPARTMENT OF | [address] | [place] [address] | | | PATHOLOGY | [address] | | | + + + + + | [facility] DEPARTMENT OF | [address] | [place] [address] | | | PATHOLOGY | [address] [...] OF | [address] | [place] [address] | | | PATHOLOGY | [address] | | | + + + + + | [facility] DEPARTMENT OF | [address] | [place] [address] | | | PATHOLOGY | [address] [...] OF | [address] | [place] [address] | | | PATHOLOGY | [address] | | | + + + + + | [facility] DEPARTMENT OF | [address] | [place] [address] | | | PATHOLOGY | [address] [...] + + | [facility] | [address] [facility] | [place], [place] | | | THERAPY | [address] | [address] | | + + + + + | [facility] | [address] [facility] | [place], [place] | | | THERAPY | [address] | [address] | | + + + + + [...] | + + + + + | [facility] | [address] [facility] | [place] [address] | | | PATHOLOGY | [address] | | | + + + + + | [facility] | [address] [place] [address] | [place] [address] | | | PATHOLOGY | [address] [...] [facility] | [address] | [place], [place] | | | THERAPY | [address] | [address] | | + + + + + | [facility] | [address] | [place] | | | THERAPY | [address] | [address] | | + + + + + [facility] PORTABLE TRANSCRANIAL DOPPLER COMPLETE (10/29/2007 8:10 AM PDT) + + + + + + | Component | Value | Ref Range | Performed | Pathologist | | | | | At | Signature | + + + + + + | [facility] | Med Rec No:[id number] | | | | | PORTABLE | [...] PMAccession | | | | | | #[id number]:TRANSCRAN | | | | | | IAL [...] | | | | | UNSIGNED / O'Fife Rula | | | | + + + + + + + + | Specimen | + + | | + + + +---------+ + + | Performing | Address | City/State/Zipcode | Phone Number | | Organization | | | | + +---------+ + + | [facility] DEPARTMENT OF | | | | [...] | + +---------+ + + | [facility] DEPARTMENT OF | | | | [...] + + | [facility] | [address] [facility] | [place], [place] | | | THERAPY | [address] | [address] | | + + + + + | [facility] | [address] [facility] | [place], [place] | | | THERAPY | [address] | [address] | | + + + + + [...] + + | [facility] DEPARTMENT OF | [address] [facility] | [place] [address] | | | PATHOLOGY | [address] | | | + + + + + | [facility] DEPARTMENT OF | [address] [facility] | [place] [address] | | | PATHOLOGY | [address] [...] DEPARTMENT OF | [address] | [place] [address] | | | PATHOLOGY | [address] | | | + + + + + | [facility] DEPARTMENT | [address] | [place] [address] | | | PATHOLOGY | [address] | | | + + + + + MAGNESIUM, PLASMA (10/29/2007 12:01 AM PDT) + +-------+ + + + | Component | Value | Ref Range | Performed | Pathologist | | | | | At | Signature | + +-------+ + + + | MAGNESIUM,P | 1.9 | 1.8 - 2.5 mg/dL | [facility] | | | LASMA | | | [...] + + + + | [facility] DEPARTMENT OF | [address] | [place] [address] | | | PATHOLOGY | [address] | | | + + + + + | [facility] DEPARTMENT OF | [address] | [place] [address] | | | PATHOLOGY | [address] [...] | + + + + + | [facility] | [address] [facility] | [place] [address] | | | PATHOLOGY | [address] | | | + + + + + | [facility] | [address] [place] [address] | [place] [address] | | | PATHOLOGY | [address] [...] | + + + + + | [facility] | [address] [facility] | [place] [address] | | | PATHOLOGY | [address] | | | + + + + + | [facility] | [address] [facility] | [place] [address] | | | PATHOLOGY | [address] [...] DEPARTMENT OF | [address] | [place] [address] | | | PATHOLOGY | [address] | | | + + + + + | [facility] DEPARTMENT | [address] | [place] [address] | | | PATHOLOGY | [address] [...] [facility] | [address] | [place], [place] | | | THERAPY | [address] | [address] | | + + + + + | [facility] | [address] | [place], [place] | | | THERAPY | [address] | [address] | | + + + + + [...] | + + + + + | [facility] | [address] | [place] [address] | | | PATHOLOGY | [address] | | | + + + + + | [facility] | [facility] [address] | [place] [address] | | | PATHOLOGY | [address] [...] + + + + | [facility] DEPARTMENT OF | [facility] | [place] [address] | | | PATHOLOGY | [address] | | | + + + + + | [facility] DEPARTMENT OF | [facility] [address] | [place] [address] | | | PATHOLOGY | [address] [...] + + + + | [facility] DEPARTMENT OF | [address] [facility] | [place] [address] | | | PATHOLOGY | [address] | | | + + + + + | [facility] DEPARTMENT OF | [address] [facility] | [place] [address] | | | PATHOLOGY | [address] [...] | + + + + + | [facility] | [address] | [place] [address] | | | PATHOLOGY | [address] | | | + + + + + | [facility] | [address] [place] [address] [address] | [place] [address] | | | PATHOLOGY | [address] [...] [facility] | [address] | [place], [place] | | | THERAPY | [address] | [address] | | + + + + + | [facility] | [address] | [place], [place] | | | THERAPY | [facility] | [address] | | + + + + + [...] + + + + | [facility] DEPARTMENT OF | [address] | [place] [address] | | | PATHOLOGY | [address] | | | + + + + + | [facility] DEPARTMENT OF | [address] | [place] [address] | | | PATHOLOGY | [address] [...] [facility] | [address] | [place], [place] | | | THERAPY | [address] | [address] | | + + + + + | [facility] | [address] | [place], [place] | | | THERAPY | [address] | [address] | | + + + + + [...] | + + + + + | [facility] | [address] [facility] | [place] [address] | | | PATHOLOGY | [address] | | | + + + + + | [facility] | [address] [place] [address] | [place] [address] | | | PATHOLOGY | [address] [...] | + + + + + | [facility] | [address] [facility] | [place] [address] | | | PATHOLOGY | [address] | | | + + + + + | [facility] | [address] [place] [address] | [place] [address] | | | PATHOLOGY | [address] [...] | | | | | | [facility]. Culture: | | | | | | Final Report: No | | | | | | growth after 3 days. | | | | | | Final ReportComment: | | | | | | Test performed at [facility] | | | | | | [facility] | | | | | | Laboratory. | | | | + + + + + + + + | Specimen | + + | Cerebrospinal fluid | + + + + + + + | Performing | Address | City/State/Zipcode | Phone Number | | Organization | | | | + + + + + | [facility] | [address] | [place] [address] | | | LAB-MICRO | | | [...] + + + + | [facility] DEPARTMENT OF | [address] [facility] | [place] [address] | | | PATHOLOGY | [address] | | | + + + + + | [facility] DEPARTMENT OF | [address] [facility] | [place] [address] | | | PATHOLOGY | [address] [...] + + + + | [facility] DEPARTMENT OF | [address] | [place] [address] | | | PATHOLOGY | [address] | | | + + + + + | [facility] DEPARTMENT OF | [address] | [place] [address] | | | PATHOLOGY | [address] [...] | + + + + + | [facility] DEPARTMENT OF | [address] | [place] [address] | | | PATHOLOGY | [address] | | | + + + + + | [facility] | [address] | [place] [address] | | | PATHOLOGY | [address] | | | + + + + + [facility] PORTABLE TRANSCRANIAL DOPPLER COMPLETE (10/28/2007 8:14 AM PDT) + + + + + + | Component | Value | Ref Range | Performed | Pathologist | | | | | At | Signature | + + + + + + | [facility] | Med Rec No:[id number] | | | | | PORTABLE | [...] PMAccession | | | | | | #[id number]:TRANSCRAN | | | | | | IAL [...] + + + + | [facility] DEPARTMENT OF | [address] | [place] [address] | | | PATHOLOGY | [address] | | | + + + + + | [facility] DEPARTMENT OF | [address] | [place] [address] | | | PATHOLOGY | [address] [...] + + + + | [facility] DEPARTMENT OF | [address] | [place] [address] | | | PATHOLOGY | [address] | | | + + + + + | [facility] DEPARTMENT OF | [address] | [place] [address] | | | PATHOLOGY | [address] [...] DEPARTMENT OF | [address] | [place] [address] | | | PATHOLOGY | [address] | | | + + + + + | [facility] DEPARTMENT | [address] | [place] [address] | | | PATHOLOGY | [address] [...] [facility] | [address] | [place], [place] | | | THERAPY | [address] | [address] | | + + + + + | [facility] | [address] | [place], [place] | | | THERAPY | [facility] | [address] | | + + + + + [...] | | | | | | The fishing lure assembler | | | | | | swellingoverlying [...] | + +---------+ + + | [facility] DEPARTMENT OF | | | | [...] | + + + + + | [facility] | [address] [facility] | [place] [address] | | | PATHOLOGY | [address] | | | + + + + + | [facility] | [address] [facility] | [place] [address] | | | PATHOLOGY | [address] [...] + + + + | [facility] DEPARTMENT | [address] [facility] | [place] [address] | | | PATHOLOGY | [address] | | | + + + + + | [facility] | [address] [place] [address] | [place] [address] | | | PATHOLOGY | [address] [...] + + + + | [facility] DEPARTMENT OF | [address] [facility] | [place] [address] | | | PATHOLOGY | [address] | | | + + + + + | [facility] DEPARTMENT OF | [address] | [place] [address] | | | PATHOLOGY | [address] [...] DEPARTMENT OF | [address] | [place] [address] | | | PATHOLOGY | [address] | | | + + + + + | [facility] DEPARTMENT OF | [address] | [place] [address] | | | PATHOLOGY | [address] [...] | + + + + + | [facility] | [facility] | [place] [address] | | | PATHOLOGY | [address] | | | + + + + + | [place] DEPARTMENT OF | [address] | [place] [address] | | | PATHOLOGY | [address] [...] [facility] | [address] | [place], [place] | | | THERAPY | [facility] | [address] | | + + + + + | [facility] | [address] [facility] [address] | [place], [place] | | | THERAPY | [facility] | [address] | | + + + + + [...] | + +---------+ + + | [facility] DEPARTMENT OF | | | | [...] [place], | | | | | | CLAIM CLINICIAN | | | | + + + [...] [facility] | [address] | [place], [place] | | | THERAPY | [address] | [address] | | + + + + + | [facility] | [address] | [place], [place] | | | THERAPY | [facility] | [address] | | + + + + + [...] [place], | | | | | | CLAIM CLINICIAN | | | | + + + [...] [facility] | [address] | [place], [place] | | | THERAPY | [address] | [address] | | + + + + + | [facility] | [address] | [place], [place] | | | THERAPY | [address] | [address] | | + + + + + [...] | + + + + + | [facility] | [address] [facility] | [place] [address] | | | PATHOLOGY | [address] | | | + + + + + | [facility] | [address] [facility] | [place] [address] | | | PATHOLOGY | [address] [...] | | | | | performed at [place] | | | | | | [facility] | | | | | | Laboratory. | | | | + + + + + + + + | Specimen | + + | Sputum - Sputum | + + + + + + + | Performing | Address | City/State/Zipcode | Phone Number | | Organization | | | | + + + + + | [facility] | [address] | [place] [address] | | | LAB-MICRO | | | [...] | | | | | | [facility] ([facility] Lab) | | | | | | [place] | | | | | | [facility] | | | | | | [address] | | | | | | [place], | | | | | | [place] [id number]: | | | | | | Test performed at [facility] | | | | | | [facility] | | | | | | Laboratory. | | | | + + + + + + + + | Specimen | + + | Urine - Benavides Cath | + + + + + + + | Performing | Address | City/State/Zipcode | Phone Number | | Organization | | | | + + + + + | [facility] | [address] | [place] [address] | | | LAB-MICRO | | | [...] | | | | | performed at [facility] | | | | | | [facility] | | | | | | Laboratory. | | | | + + + + + + + + | Specimen | + + | Blood | + + + + + + + | Performing | Address | City/State/Zipcode | Phone Number | | Organization | | | | + + + + + | [facility] | [address] | [place] [address] | | | LAB-MICRO | | | [...] + + + + | [facility] DEPARTMENT OF | [address] [facility] | [place] [address] | | | PATHOLOGY | [address] | | | + + + + + | [facility] DEPARTMENT OF | [address] [facility] | [place] [address] | | | PATHOLOGY | [address] [...] DEPARTMENT OF | [address] | [place] [address] | | | PATHOLOGY | [address] | | | + + + + + | [facility] DEPARTMENT OF | [address] | [place] [address] | | | PATHOLOGY | [address] [...] DEPARTMENT OF | [address] | [place] [address] | | | PATHOLOGY | [address] | | | + + + + + | [facility] DEPARTMENT | [address] [facility] | [place] [address] | | | PATHOLOGY | [address] [...] + + + + | [facility] DEPARTMENT OF | [address] [facility] | [place] [address] | | | PATHOLOGY | [address] | | | + + + + + | [facility] DEPARTMENT OF | [facility] | [place] [address] | | | PATHOLOGY | [address] [...] | + + + + + | [facility] | [address] | [place] [address] | | | PATHOLOGY | [address] | | | + + + + + | [facility] | [address] | [place] [address] | | | PATHOLOGY | [address] [...] | + + + + + | [facility] | [address] | [place] [address] | | | PATHOLOGY | [address] | | | + + + + + | [facility] | [address] | [place] [address] | | | PATHOLOGY | [address] [...] [place], | | | | | | CLAIM CLINICIAN | | | | + + + [...] + + | [facility] RESPIRATORY | [address] [facility] | [place], [place] | | | THERAPY | [address] | [address] | | + + + + + | [facility] RESPIRATORY | [address] [facility] | [place], [place] | | | THERAPY | [address] | [address] | | + + + + + [...] + + + + | [facility] DEPARTMENT | [address] [place] [address] | [place] [address] | | | PATHOLOGY | [address] | | | + + + + + | [facility] DEPARTMENT OF | [facility] | [place] [address] | | | PATHOLOGY | [address] [...] [place], | | | | | | CLAIM CLINICIAN | | | | + + + [...] [facility] RESPIRATORY | [address] | [place], [place] | | | THERAPY | [address] | [address] | | + + + + + | [facility] RESPIRATORY | [address] | [place], [place] | | | THERAPY | [address] | [address] | | + + + + + [...] + + + + | [facility] DEPARTMENT OF | [facility] | [place] [address] | | | PATHOLOGY | [address] | | | + + + + + | [facility] DEPARTMENT OF | [facility] | [place] [address] | | | PATHOLOGY | [address] [...] + | [facility] DEPARTMENT OF | [address] [facility] | [place] [address] | | | PATHOLOGY | [address] | | | + + + + + | [facility] DEPARTMENT OF | [address] [facility] | [place] [address] | | | PATHOLOGY | [address] [...] DEPARTMENT OF | [address] | [place] [address] | | | PATHOLOGY | [address] | | | + + + + + | [facility] DEPARTMENT OF | [address] | [place] [address] | | | PATHOLOGY | [address] [...] DEPARTMENT OF | [address] | [place] [address] | | | PATHOLOGY | [address] | | | + + + + + | [facility] DEPARTMENT OF | [address] | [place] [address] | | | PATHOLOGY | [address] [...] | + + + + + | [facility] | [address] [facility] | [place] [address] | | | PATHOLOGY | [address] | | | + + + + + | [facility] | [address] [facility] | [place] [address] | | | PATHOLOGY | [address] [...] | | | | | | [facility]. Culture: | | | | | | Final Report: No | | | | | | growth after 3 days. | | | | | | Final ReportComment: | | | | | | Test performed at [facility] | | | | | | [facility] | | | | | | Laboratory. | | | | + + + + + + + + | Specimen | + + | Cerebrospinal fluid | + + + + + + + | Performing | Address | City/State/Zipcode | Phone Number | | Organization | | | | + + + + + | [facility] | [address] | [place] [address] | | | LAB-MICRO | | | [...] DEPARTMENT OF | [address] | [place] [address] | | | PATHOLOGY | [address] | | | + + + + + | [facility] DEPARTMENT | [address] | [place] [address] | | | PATHOLOGY | [address] | | | + + + + + PROTEIN, CSF (10/27/2007 8:22 AM PDT) + +---------+ + + + | Component | Value | Ref Range | Performed | Pathologist | | | | | At | Signature | + +---------+ + + + | TOTAL | 127 (H) | 15 - 45 mg/dL | [facility] | | | PROTEIN CSF | | [...] DEPARTMENT OF | [address] | [place] [address] | | | PATHOLOGY | [address] | | | + + + + + | [facility] DEPARTMENT OF | [address] | [place] [address] | | | PATHOLOGY | [address] [...] + + + | CSF RBC | [address] | /cu mm | [facility] | | [...] | + + + + + | [facility] | [address] [facility] | [place] [address] | | | PATHOLOGY | [address] | | | + + + + + | [facility] | [facility] | [place] [address] | | | PATHOLOGY | [address] | | | + + + + + [facility] PORTABLE TRANSCRANIAL DOPPLER COMPLETE (10/27/2007 1:37 AM PDT) + + + + + + | Component | Value | Ref Range | Performed | Pathologist | | | | | At | Signature | + + + + + + | [facility] LAB | Med Rec No:[id number] | | | | | PORTABLE | [...] AMAccession | | | | | | #[id number]:TRANSCRAN | | | | | | IAL [...] | | | | - UNSIGNED / Whitley | | | | | | Chana [...] + + | [facility] RESPIRATORY | [address] [facility] | [place], [place] | | | THERAPY | [address] | [address] | | + + + + + | [facility] RESPIRATORY | [address] [facility] | [place], [place] | | | THERAPY | [facility] | [address] | | + + + + + [...] + + + + | [facility] DEPARTMENT OF | [address] [facility] | [place] [address] | | | PATHOLOGY | [address] | | | + + + + + | [facility] DEPARTMENT OF | [address] [facility] | [place] [address] | | | PATHOLOGY | [address] [...] DEPARTMENT OF | [address] | [place] [address] | | | PATHOLOGY | [address] | | | + + + + + | [facility] DEPARTMENT OF | [address] | [place] [address] | | | PATHOLOGY | [address] [...] | + + + + + | [facility] | [address] [facility] | [place] [address] | | | PATHOLOGY | [address] | | | + + + + + | [facility] | [address] [facility] | [place] [address] | | | PATHOLOGY | [address] [...] | + + + + + | [facility] | [address] [facility] | [place] [address] | | | PATHOLOGY | [address] | | | + + + + + | [facility] | [address] [facility] | [place] [address] | | | PATHOLOGY | [address] [...] + + + + | [facility] DEPARTMENT | [address] [facility] | [place] [address] | | | PATHOLOGY | [address] | | | + + + + + | [facility] | [address] [facility] | [place] [address] | | | PATHOLOGY | [address] [...] + + | [facility] RESP[facility]AT[facility] | [address] [facility] [address] | [place], [place] | | | THERAPY | [address] | [address] | | + + + + + | [facility] RESPIRATORY | [address] [facility] | [place], [place] | | | THERAPY | [facility] | [address] | | + + + + + [...] DEPARTMENT OF | [address] | [place] [address] | | | PATHOLOGY | [address] | | | + + + + + | [facility] | [address] | [place] [address] | | | PATHOLOGY | [address] [...] + + + + | [facility] DEPARTMENT OF | [address] | [place] [address] | | | PATHOLOGY | [address] | | | + + + + + | [facility] DEPARTMENT OF | [facility] | [place] [address] | | | PATHOLOGY | [address] [...] + + + + | [facility] DEPARTMENT OF | [address] [facility] | [place] [address] | | | PATHOLOGY | [address] | | | + + + + + | [facility] DEPARTMENT OF | [address] [facility] | [place] [address] | | | PATHOLOGY | [address] [...] + + | [facility] RESPIRATORY | [address] [facility] [address] | [place], [place] | | | THERAPY | [address] | [address] | | + + + + + | [facility] RESP[facility] | [address] [facility] [address] | [place], [place] | | | THERAPY | [address] | [address] | | + + + + + [...] DEPARTMENT OF | [address] | [place] [address] | | | PATHOLOGY | [address] | | | + + + + + | [facility] | [address] | [place] [address] | | | PATHOLOGY | [address] [...] [facility] RES[facility] | [address] | [place], [place] | | | THERAPY | [address] | [address] | | + + + + + | [facility] RESPIRAT[facility] | [address] [facility] | [place], [place] | | | THERAPY | [address] | [address] | | + + + + + [...] DEPARTMENT OF | [address] | [place] [address] | | | PATHOLOGY | [address] | | | + + + + + | [facility] | [address] | [place] [address] | | | PATHOLOGY | [address] [...] DEPARTMENT OF | [address] | [place] [address] | | | PATHOLOGY | [address] | | | + + + + + | [facility] DEPARTMENT | [address] | [place] [address] | | | PATHOLOGY | [address] [...] + + + + | [facility] DEPARTMENT OF | [address] | [place] [address] | | | PATHOLOGY | [address] | | | + + + + + | [facility] DEPARTMENT OF | [address] | [place] [address] | | | PATHOLOGY | [address] [...] | + + + + + | [facility] | [address] [facility] | [place] [address] | | | PATHOLOGY | [address] | | | + + + + + | [facility] | [address] [facility] | [place] [address] | | | PATHOLOGY | [address] [...] + + | [facility] RESPIRATORY | [address] [facility] | [place], [place] | | | THERAPY | [address] | [address] | | + + + + + | [facility] RESPIRATORY | [address] [facility] [address] | [place], [place] | | | THERAPY | [address] | [address] | | + + + + + [...] | + +---------+ + + | [facility] DEPARTMENT OF | | | | [...] [facility] RESPIRAT[facility] | [address] | [place], [place] | | | THERAPY | [address] | [address] | | + + + + + | [facility] RESPIRATORY | [address] | [place], [place] | | | THERAPY | [address] | [address] | | + + + + + [facility] LAB PORTABLE TRANSCRANIAL DOPPLER COMPLETE (10/26/2007 2:02 AM PDT) + + + + + + | Component | Value | Ref Range | Performed | Pathologist | | | | | At | Signature | + + + + + + | [facility] | Med Rec No:[id number] | | | | | PORTABLE | [...] AMAccession | | | | | | #[id number]:TRANSCRAN | | | | | | IAL [...] artery | | | | | | [id number] cm/sec, in the | | | | [...] | + +---------+ + + | [facility] DEPARTMENT OF | | | | [...] | + + + + + | [facility] | [address] [facility] | [place] [address] | | | PATHOLOGY | [address] | | | + + + + + | [facility] | [address] [place] [address] | [place] [address] | | | PATHOLOGY | [address] [...] + + + + | [facility] DEPARTMENT OF | [address] | [place] [address] | | | PATHOLOGY | [address] | | | + + + + + | [facility] DEPARTMENT OF | [address] | [place] [address] | | | PATHOLOGY | [address] [...] DEPARTMENT OF | [address] | [place] [address] | | | PATHOLOGY | [address] | | | + + + + + | [facility] | [address] | [place] [address] | | | PATHOLOGY | [address] [...] | | THERAPY | [address] | [address] | | + + + + + | [facility] RESPIRATORY | [address] | [place], [place] | | | THERAPY | [address] | [address] | | + + + + + [...] + + + + | [facility] DEPARTMENT OF | [facility] | [place] [address] | | | PATHOLOGY | [address] | | | + + + + + | [facility] DEPARTMENT OF | [facility] | [place] [address] | | | PATHOLOGY | [address] [...] [facility] RESP[facility] | [address] | [place], [place] | | | THERAPY | [address] | [address] | | + + + + + | [facility] RESPIR[facility]ORY | [address] | [place], [place] | | | THERAPY | [facility] | [address] | | + + + + + [...] | + + + + + | [facility] | [address] [facility] | [place] [address] | | | PATHOLOGY | [address] | | | + + + + + | [facility] | [address] [facility] | [place] [address] | | | PATHOLOGY | [address] [...] + + + + | [facility] DEPARTMENT OF | [address] | [place] [address] | | | PATHOLOGY | [address] | | | + + + + + | [facility] DEPARTMENT OF | [address] | [place] [address] | | | PATHOLOGY | [address] [...] | + + + + + | [facility] | [address] [facility] | [place] [address] | | | PATHOLOGY | [address] | | | + + + + + | [facility] | [address] [place] [address] | [place] [address] | | | PATHOLOGY | [address] [...] + + + + | [facility] DEPARTMENT | [facility] | [place] [address] | | | PATHOLOGY | [address] | | | + + + + + | [facility] DEPARTMENT OF | [address] [facility] | [place] [address] | | | PATHOLOGY | [address] [...] [facility] RES[facility] | [address] | [place], [place] | | | THERAPY | [address] | [address] | | + + + + + | [facility] RESPIRAT[facility] | [address] | [place], [place] | | | THERAPY | [address] [facility] | [address] | | + + + + + [...] | + + + + + | [facility] | [facility] | [place] [address] | | | PATHOLOGY | [address] | | | + + + + + | [facility] | [address] [place] [address] | [place] [address] | | | PATHOLOGY | [address] [...] + + + + | [facility] DEPARTMENT OF | [address] | [place] [address] | | | PATHOLOGY | [address] | | | + + + + + | [facility] DEPARTMENT OF | [facility] | [place] [address] | | | PATHOLOGY | [address] [...] + + + + | [facility] DEPARTMENT OF | [address] [facility] | [place] [address] | | | PATHOLOGY | [address] | | | + + + + + | [facility] DEPARTMENT OF | [address] [facility] | [place] [address] | | | PATHOLOGY | [address] [...] + + | [facility] RESPIRATORY | [address] [facility] | [place], [place] | | | THERAPY | [address] | [address] | | + + + + + | [facility] RESP[facility] | [address] [facility] | [place], [place] | | | THERAPY | [address] | [address] | | + + + + + [...] | + + + + + | [facility] | [address] | [place] [address] | | | PATHOLOGY | [address] | | | + + + + + | [facility] | [facility] [address] | [place] [address] | | | PATHOLOGY | [address] [...] + + + + | [facility] DEPARTMENT OF | [address] | [place] [address] | | | PATHOLOGY | [address] | | | + + + + + | [facility] DEPARTMENT OF | [address] | [place] [address] | | | PATHOLOGY | [address] [...] + + + + | [facility] DEPARTMENT OF | [address] | [place] [address] | | | PATHOLOGY | [address] | | | + + + + + | [facility] DEPARTMENT OF | [address] | [place] [address] | | | PATHOLOGY | [address] [...] DEPARTMENT OF | [address] | [place] [address] | | | PATHOLOGY | [address] | | | + + + + + | [facility] DEPARTMENT | [address] | [place] [address] | | | PATHOLOGY | [address] [...] DEPARTMENT OF | [address] | [place] [address] | | | PATHOLOGY | [address] | | | + + + + + | [facility] DEPARTMENT | [address] | [place] [address] | | | PATHOLOGY | [address] [...] [facility] RES[facility] | [address] | [place], [place] | | | THERAPY | [address] | [address] | | + + + + + | [facility] RESP[facility] | [address] [facility] | [place], [place] | | | THERAPY | [address] | [address] | | + + + + + [...] + + | [facility] RESPIRAT[facility] | [address] [facility] | [place], [place] | | | THERAPY | [address] | [address] | | + + + + + | [facility] RESPIR[facility]ORY | [address] [facility] | [place], [place] | | | THERAPY | [address] | [address] | | + + + + + [facility] LAB PORTABLE TRANSCRANIAL DOPPLER COMPLETE (10/25/2007 2:03 AM PDT) + + + + + + | Component | Value | Ref Range | Performed | Pathologist | | | | | At | Signature | + + + + + + | [facility] LAB | [facility] Rec No:[id number] | | | | | PORTABLE | [...] AMAccession | | | | | | #[id number]:TRANSCRAN | | | | | | IAL [...] | | | | | UNSIGNED / O'Fife Rula | | | | + + [...] + + + + | [facility] DEPARTMENT OF | [address] | [place] [address] | | | PATHOLOGY | [address] | | | + + + + + | [facility] DEPARTMENT OF | [address] [facility] | [place] [address] | | | PATHOLOGY | [address] | | | + + + + + MAGNESIUM, PLASMA (10/25/2007 2:00 AM PDT) + +---------+ + + + | Component | Value | Ref Range | Performed | Pathologist | | | | | At | Signature | + +---------+ + + + | MAGNESIUM,P | 1.6 (L) | 1.8 - 2.5 mg/dL | [facility] | | | LASMA | | | [...] | + + + + + | [facility] | [address] [facility] | [place] [address] | | | PATHOLOGY | [address] | | | + + + + + | [facility] | [address] [facility] | [place] [address] | | | PATHOLOGY | [address] [...] + + + + | [facility] DEPARTMENT OF | [facility] | [place] [address] | | | PATHOLOGY | [address] | | | + + + + + | [facility] DEPARTMENT OF | [address] [facility] | [place] [address] | | | PATHOLOGY | [address] [...] + + + + | [facility] DEPARTMENT | [address] [facility] | [place] [address] | | | PATHOLOGY | [address] | | | + + + + + | [facility] | [address] [facility] | [place] [address] | | | PATHOLOGY | [address] [...] + + | [facility] RESP[facility] | [address] [facility] | [place], [place] | | | THERAPY | [address] | [address] | | + + + + + | [facility] RESPIRATORY | [address] | [place], [place] | | | THERAPY | [facility] | [address] | | + + + + + [...] + + | [facility] RESPIRAT[facility] | [address] [facility] | [place], [place] | | | THERAPY | [address] | [address] | | + + + + + | [facility] RESP[facility] | [address] [facility] | [place], [place] | | | THERAPY | [address] | [address] | | + + + + + [...] DEPARTMENT OF | [address] | [place] [address] | | | PATHOLOGY | [address] | | | + + + + + | [facility] DEPARTMENT OF | [address] | [place] [address] | | | PATHOLOGY | [address] [...] DEPARTMENT OF | [address] | [place] [address] | | | PATHOLOGY | [address] | | | + + + + + | [facility] DEPARTMENT OF | [address] | [place] [address] | | | PATHOLOGY | [address] [...] DEPARTMENT OF | [address] | [place] [address] | | | PATHOLOGY | [address] | | | + + + + + | [facility] DEPARTMENT OF | [address] | [place] [address] | | | PATHOLOGY | [address] [...] | + + + + + | [facility] | [address] [facility] | [place] [address] | | | PATHOLOGY | [address] | | | + + + + + | [facility] | [address] [facility] | [place] [address] | | | PATHOLOGY | [address] [...] + + | [facility] RESP[facility]AT[facility] | [address] [facility] | [place], [place] | | | THERAPY | [address] | [address] | | + + + + + | [facility] RESP[facility] | [address] [facility] | [place], [place] | | | THERAPY | [address] | [address] | | + + + + + [...] + + + + | [facility] DEPARTMENT OF | [address] | [place] [address] | | | PATHOLOGY | [address] | | | + + + + + | [facility] DEPARTMENT OF | [address] | [place] [address] | | | PATHOLOGY | [address] [...] + + + + | [facility] DEPARTMENT OF | [address] [facility] | [place] [address] | | | PATHOLOGY | [address] | | | + + + + + | [facility] DEPARTMENT OF | [address] | [place] [address] | | | PATHOLOGY | [address] [...] | | | | | | [facility]. Culture: | | | | | | Final Report: No | | | | | | growth after 3 days. | | | | | | Final ReportComment: | | | | | | Test performed at [facility] | | | | | | [facility] | | | | | | Laboratory. | | | | + + + + + + + + | Specimen | + + | Cerebrospinal fluid | + + + + + + + | Performing | Address | City/State/Zipcode | Phone Number | | Organization | | | | + + + + + | [facility] | [address] | [place] [address] | | | LAB-MICRO | | | [...] | + + + + + | [facility] | [address] [facility] | [place] [address] | | | PATHOLOGY | [address] | | | + + + + + | [facility] | [address] | [place] [address] | | | PATHOLOGY | [address] [...] + | [facility] DEPARTMENT OF | [address] [facility] | [place] [address] | | | PATHOLOGY | [address] | | | + + + + + | [facility] | [address] [facility] | [place] [address] | | | PATHOLOGY | [address] [...] + + + | CSF RBC | [address] | /cu mm | [facility] | | [...] DEPARTMENT OF | [address] | [place] [address] | | | PATHOLOGY | [address] | | | + + + + + | [facility] DEPARTMENT OF | [address] | [place] [address] | | | PATHOLOGY | [address] [...] + + + + | [facility] DEPARTMENT OF | [address] | [place] [address] | | | PATHOLOGY | [address] | | | + + + + + | [facility] DEPARTMENT OF | [address] | [place] [address] | | | PATHOLOGY | [address] [...] | | | | | | Dr. SANGEETAH CAMPBELL | | | | + + [...] [facility] | [address] | [place], [place] | | | THERAPY | [facility] | [address] | | + + + + + | [facility] | [address] | [place], [place] | | | THERAPY | [facility] | [address] | | + + + + + [...] DEPARTMENT OF | [address] | [place] [address] | | | PATHOLOGY | [address] | | | + + + + + | [facility] DEPARTMENT OF | [address] | [place], [place] [address] | | | PATHOLOGY | [address] [...] + | [facility] DE[facility]MENT OF | [address] [facility] | [place] [address] | | | PATHOLOGY | [address] | | | + + + + + | [facility]MENT OF | [address] | [place] [address] | | | PATHOLOGY | [address] [...] | + + + + + | [facility] | [address] [facility] | [place] [address] | | | PATHOLOGY | [address] | | | + + + + + | [facility] | [address] [facility] | [place] [address] | | | PATHOLOGY | [address] [...] | + + + + + | [facility] | [address] | [place] [address] | | | PATHOLOGY | [address] | | | + + + + + | [facility] | [address] | [place] [address] | | | PATHOLOGY | [address] [...] + + + + | [facility] DEPARTMENT OF | [address] | [place] [address] | | | PATHOLOGY | [address] | | | + + + + + | [place] DEPARTMENT OF | [address] | [place] [address] | | | PATHOLOGY | [address] [...] | | | | | | [place] .[place] | | | | | | [...] [facility] | [address] | [place], [place] | | | THERAPY | [address] | [address] | | + + + + + | [facility] | [address] | [place], [place] | | | THERAPY | [address] | [address] | | + + + + + [...] + + + + | PRODUCT | [id number] | | [facility] | | | UNIT [...] | + + + + + | [facility] | [address] [place] [address] | [place] [address] | | | PATHOLOGY | [address] | | | + + + + + | [facility] | [address] [place] [address] | [place] [address] | | | PATHOLOGY | [address] [...] | + + + + + | [facility] | [address] [facility] | [place] [address] | | | PATHOLOGY | [address] | | | + + + + + | [facility] | [address] [place] [address] | [place] [address] | | | PATHOLOGY | [address] [...] + + + + | PRODUCT | [id number] | | [facility] | | | UNIT [...] DEPARTMENT OF | [address] | [place] [address] | | | PATHOLOGY | [address] | | | + + + + + | [facility] DEPARTMENT | [address] | [place] [address] | | | PATHOLOGY | [address] [...] + + + + | [facility] DEPARTMENT OF | [address] | [place] [address] | | | PATHOLOGY | [address] | | | + + + + + | [facility] DEPARTMENT OF | [address] | [place] [address] | | | PATHOLOGY | [address] [...] + | [facility] DEPARTMENT OF | [address] [facility] | [place] [address] | | | PATHOLOGY | [address] | | | + + + + + | [facility] DEPARTMENT OF | [address] [facility] | [place] [address] | | | PATHOLOGY | [address] [...] | + + + + + | [facility] | [address] | [place] [address] | | | PATHOLOGY | [address] | | | + + + + + | [facility] | [address] | [place] [address] | | | PATHOLOGY | [address] | | | + + + + + [facility]ASC LAB PORTABLE TRANSCRANIAL DOPPLER COMPLETE (10/24/2007 5:05 AM PDT) + + + + + + | Component | Value | Ref Range | Performed | Pathologist | | | | | At | Signature | + + + + + + | [facility] LAB | Med Rec No:[id number] | | | | | PORTABLE | [...] AMAccession | | | | | | #[id number]:TRANSCRAN | | | | | | IAL [...] | | | | | UNSIGNED / O'Fife Rula | | | | + + [...] | + + + + + | [facility] | [address] [facility] | [place] [address] | | | PATHOLOGY | [address] | | | + + + + + | [facility] DEPARTMENT | [address] [facility] | [place] [address] | | | PATHOLOGY | [address] [...] + + + + | [facility] DEPARTMENT OF | [address] | [place] [address] | | | PATHOLOGY | [address] | | | + + + + + | [facility] DEPARTMENT OF | [address] | [place] [address] | | | PATHOLOGY | [address] [...] | + + + + + | [facility] | [address] [facility] | [place] [address] | | | PATHOLOGY | [address] | | | + + + + + | [facility] | [address] [facility] | [place] [address] | | | PATHOLOGY | [address] [...] DEPARTMENT OF | [address] | [place] [address] | | | PATHOLOGY | [address] | | | + + + + + | [facility] DEPARTMENT OF | [address] [facility] | [place] [address] | | | PATHOLOGY | [address] [...] + | [facility] DEPARTMENT OF | [address] [facility] | [place] [address] | | | PATHOLOGY | [address] | | | + + + + + | [facility] DEPARTMENT OF | [address] [facility] | [place] [address] | | | PATHOLOGY | [address] | | | + + + + + MAGNESIUM, PLASMA (10/24/2007 12:01 AM PDT) + +-------+ + + + | Component | Value | Ref Range | Performed | Pathologist | | | | | At | Signature | + +-------+ + + + | MAGNESIUM,P | 2.0 | 1.8 - 2.5 mg/dL | [facility] | | | LASMA | | | [...] | + + + + + | [facility] | [address] [facility] | [place] [address] | | | PATHOLOGY | [address] | | | + + + + + | [facility] | [address] [facility] | [place] [address] | | | PATHOLOGY | [address] [...] + + + + | [facility] DEPARTMENT OF | [address] [facility] | [place] [address] | | | PATHOLOGY | [address] | | | + + + + + | [facility] DEPARTMENT OF | [address] [facility] | [place] [address] | | | PATHOLOGY | [address] [...] | + + + + + | [facility] | [address] | [place] [address] | | | PATHOLOGY | [address] | | | + + + + + | [facility] OF | [address] | [place] [address] | | | PATHOLOGY | [address] [...] + + + + | [facility] DEPARTMENT OF | [address] [facility] | [place] [address] | | | PATHOLOGY | [address] | | | + + + + + | [facility] DEPARTMENT OF | [address] [facility] | [place] [address] | | | PATHOLOGY | [address] [...] + + + + | [facility] DEPARTMENT OF | [address] [facility] | [place] [address] | | | PATHOLOGY | [address] | | | + + + + + | [facility] DEPARTMENT OF | [address] [facility] | [place] [address] | | | PATHOLOGY | [address] [...] + + + + | [facility] DEPARTMENT OF | [address] | [place] [address] | | | PATHOLOGY | [address] | | | + + + + + | [facility] DEPARTMENT OF | [address] | [place] [address] | | | PATHOLOGY | [address] [...] | + + + + + | [facility] | [facility] | [place] [address] | | | PATHOLOGY | [address] | | | + + + + + | [facility] DEPARTMENT OF | [address] | [place] [address] | | | PATHOLOGY | [address] [...] + + + + | [facility] DEPARTMENT OF | [address] | [place] [address] | | | PATHOLOGY | [address] | | | + + + + + | [facility] DEPARTMENT OF | [address] | [place] [address] | | | PATHOLOGY | [address] [...] DEPARTMENT OF | [address] | [place] [address] | | | PATHOLOGY | [address] | | | + + + + + | [facility] DEPARTMENT OF | [address] | [place] [address] | | | PATHOLOGY | [address] [...] | + + + + + | [facility] | [address] | [place] [address] | | | PATHOLOGY | [address] | | | + + + + + | [facility] DEPARTMENT | [address] | [place] [address] | | | PATHOLOGY | [address] [...] | + + + + + | [facility] | [address] | [place] [address] | | | LAB-MICRO | | | [...] | + + + + + | [facility] | [address] [place] [address] [address] [place] | [place] [address] | | | PATHOLOGY | [address] | | | + + + + + | [facility] | [address] [place] [address] [address] | [place] [address] | | | PATHOLOGY | [address] | + +---------+ + + | [facility] DEPARTMENT OF | | | | [...] | + +---------+ + + | [facility] DEPARTMENT OF | | | | [...] + | VASC LAB | Med Rec No:[id number] | | | | | PORTABLE | [...] PMAccession | | | | | | #[id number]:TRANSCRAN | | | | | | IAL [...] + + + + | [facility] DEPARTMENT OF | [facility] | [place] [address] | | | PATHOLOGY | [address] | | | + + + + + | [facility] DEPARTMENT OF | [facility] | [place] [address] | | | PATHOLOGY | [address] [...] DEPARTMENT OF | [address] | [place] [address] | | | PATHOLOGY | [address] | | | + + + + + | [facility] DEPARTMENT OF | [address] | [place] [address] | | | PATHOLOGY | [address] [...] DEPARTMENT OF | [address] | [place] [address] | | | PATHOLOGY | [address] | | | + + + + + | [facility] DEPARTMENT OF | [address] | [place] [address] | | | PATHOLOGY | [address] [...] | + + + + + | [facility] | [facility] | [place] [address] | | | PATHOLOGY | [address] | | | + + + + + | [facility] | [address] [place] [address] | [place] [address] | | | PATHOLOGY | [address] [...] + + + + | [facility] DEPARTMENT OF | [address] | [place] [address] | | | PATHOLOGY | [address] | | | + + + + + | [facility] DEPARTMENT OF | [address] | [place] [address] | | | PATHOLOGY | [address] [...] DEPARTMENT OF | [address] | [place] [address] | | | PATHOLOGY | [address] | | | + + + + + | [facility] DEPARTMENT OF | [address] | [place] [address] | | | PATHOLOGY | [address] [...] + + + + | [facility] DEPARTMENT OF | [address] | [place] [address] | | | PATHOLOGY | [address] | | | + + + + + | [facility] OF | [address] | [place] [address] | | | PATHOLOGY | [address] [...] | | | | | Dr. JAYDA ROSAIRO | | | | + + + [...] + + + + | [facility] DEPARTMENT OF | [address] | [place] [address] | | | PATHOLOGY | [address] | | | + + + + + | [facility] DEPARTMENT OF | [address] | [place] [address] | | | PATHOLOGY | [address] [...] + + + + | [facility] DEPARTMENT OF | [address] | [place] [address] | | | PATHOLOGY | [address] | | | + + + + + | [facility] DEPARTMENT OF | [address] | [place] [address] | | | PATHOLOGY | [address] [...] DEPARTMENT OF | [address] | [place] [address] | | | PATHOLOGY | [address] | | | + + + + + | [facility] DEPARTMENT OF | [address] | [place] [address] | | | PATHOLOGY | [address] [...] | + + + + + | [facility] | [address] [facility] | [place] [address] | | | PATHOLOGY | [address] | | | + + + + + | [facility] | [address] [facility] | [place] [address] | | | PATHOLOGY | [address] [...] + + + + | [facility] DEPARTMENT OF | [address] [facility] | [place] [address] | | | PATHOLOGY | [address] | | | + + + + + | [facility] DEPARTMENT OF | [address] [facility] | [place] [address] | | | PATHOLOGY | [address] [...] | + + + + + | [facility] | [address] | [place] [address] | | | PATHOLOGY | [address] | | | + + + + + | [facility] | [address] | [place] [address] | | | PATHOLOGY | [address] [...] | + +---------+ + + | [facility] DEPARTMENT OF | | | | [...] + + + + | [facility] DEPARTMENT OF | [address] | [place] [address] | | | PATHOLOGY | [address] | | | + + + + + | [facility] DEPARTMENT OF | [facility] | [place] [address] | | | PATHOLOGY | [address] [...] + + + + | [facility] DEPARTMENT OF | [address] [facility] [address] | [place] [address] | | | PATHOLOGY | [address] | | | + + + + + | [facility] DEPARTMENT OF | [address] | [place] [address] | | | PATHOLOGY | [address] [...] DEPARTMENT OF | [address] | [place] [address] | | | PATHOLOGY | [address] | | | + + + + + | [facility] DEPARTMENT OF | [address] | [place] [address] | | | PATHOLOGY | [address] [...] | + + + + + | [facility] | [facility] | [place] [address] | | | PATHOLOGY | [address] | | | + + + + + | [facility] DEPARTMENT OF | [address] [facility] | [place] [address] | | | PATHOLOGY | [address] | | | + + + + + VASC LAB PORTABLE TRANSCRANIAL DOPPLER COMPLETE (10/22/2007 8:17 AM PDT) + + + + + + | Component | Value | Ref Range | Performed | Pathologist | | | | | At | Signature | + + + + + + | [facility] LAB | Med Rec No:[id number] | | | | | PORTABLE | [...] PMAccession | | | | | | #[id number]:TRANSCRAN | | | | | | IAL [...] | | | | | UNSIGNED / [place] Rula | | | | + + [...] | + + + + + | [facility] | [address] | [place] [address] | | | PATHOLOGY | [address] | | | + + + + + | [facility] | [address] | [place] [address] | | | PATHOLOGY | [address] [...] | + + + + + | [facility] | [address] [facility] | [place] [address] | | | PATHOLOGY | [address] | | | + + + + + | [facility] | [facility] | [place] [address] | | | PATHOLOGY | [address] [...] + + + + | [facility] DEPARTMENT OF | [address] | [place] [address] | | | PATHOLOGY | [address] | | | + + + + + | [facility] DEPARTMENT OF | [address] | [place] [address] | | | PATHOLOGY | [address] [...] | | | | | | [facility]. Culture: | | | | | | Final Report: No | | | | | | growth after 3 days. | | | | | | Final ReportComment: | | | | | | Test performed at [facility] | | | | | | [facility] | | | | | | Laboratory. | | | | + + + + + + + + | Specimen | + + | Cerebrospinal fluid | + + + + + + + | Performing | Address | City/State/Zipcode | Phone Number | | Organization | | | | + + + + + | [facility] | [address] | [place] [address] | | | LAB-MICRO | | | [...] + + + + | [facility] DEPARTMENT OF | [facility] | [place] [address] | | | PATHOLOGY | [address] | | | + + + + + | [facility] DEPARTMENT OF | [address] [facility] | [place] [address] | | | PATHOLOGY | [address] [...] | + + + + + | [facility] | [address] [facility] | [place] [address] | | | PATHOLOGY | [address] | | | + + + + + | [facility] | [address] [place] [address] | [place] [address] | | | PATHOLOGY | [address] [...] + + + | CSF RBC | [address] | /cu mm | [facility] | | [...] DEPARTMENT OF | [address] | [place] [address] | | | PATHOLOGY | [address] | | | + + + + + | [facility] | [address] | [place] [address] | | | PATHOLOGY | [address] [...] | | | | | performed at [facility] | | | | | | [facility] | | | | | | Laboratory. | | | | + + + + + + + + | Specimen | + + | Blood - Central line | + + + + + + + | Performing | Address | City/State/Zipcode | Phone Number | | Organization | | | | + + + + + | [facility] | [address] | [place] [address] | | | LAB-MICRO | | | [...] DEPARTMENT OF | [address] | [place] [address] | | | PATHOLOGY | [address] | | | + + + + + | [facility] DEPARTMENT | [address] | [place] [address] | | | PATHOLOGY | [address] | | | + + + + + MAGNESIUM, PLASMA (10/22/2007 2:45 AM PDT) + +-------+ + + + | Component | Value | Ref Range | Performed | Pathologist | | | | | At | Signature | + +-------+ + + + | MAGNESIUM,P | 2.2 | 1.8 - 2.5 mg/dL | [facility] | | | LASMA | | | [...] | + + + + + | [facility] | [address] [facility] | [place] [address] | | | PATHOLOGY | [address] | | | + + + + + | [facility] | [address] [facility] | [place] [address] | | | PATHOLOGY | [address] [...] + + + + | [facility] DEPARTMENT | [address] [facility] | [place] [address] | | | PATHOLOGY | [address] | | | + + + + + | [facility] | [facility] | [place] [address] | | | PATHOLOGY | [address] [...] + + | [facility] | [address] [facility] | [place], [place] | | | THERAPY | [address] | [address] | | + + + + + | [facility] | [address] [facility] | [place], [place] | | | THERAPY | [facility] | [address] | | + + + + + [...] + | [facility] DEPARTMENT OF | [address] [facility] | [place] [address] | | | PATHOLOGY | [address] | | | + + + + + | [facility] DEPARTMENT OF | [address] [facility] | [place] [address] | | | PATHOLOGY | [address] [...] DEPARTMENT OF | [address] | [place] [address] | | | PATHOLOGY | [address] | | | + + + + + | [facility] DEPARTMENT OF | [address] | [place] [address] | | | PATHOLOGY | [address] [...] + + + + | [facility] DEPARTMENT OF | [facility] | [place] [address] | | | PATHOLOGY | [address] | | | + + + + + | [facility] DEPARTMENT OF | [facility] | [place] [address] | | | PATHOLOGY | [address] [...] | + + + + + | [facility] | [address] [facility] | [place] [address] | | | PATHOLOGY | [address] | | | + + + + + | [facility] | [address] [facility] | [place] [address] | | | PATHOLOGY | [address] [...] | | | | | | [place] | | | | | | [...] + + | [facility] | [address] [facility] | [place], [place] | | | THERAPY | [address] | [address] | | + + + + + | [facility] RES[facility] | [address] [facility] | [place], [place] | | | THERAPY | [address] | [address] | | + + + + + [...] / | | | | | | SHDAY HERMOSILLO | | | | | | [...] | + +---------+ + + | [facility] DEPARTMENT OF | | | | [...] DEPARTMENT OF | [address] | [place] [address] | | | PATHOLOGY | [address] | | | + + + + + | [facility] DEPARTMENT OF | [address] | [place] [address] | | | PATHOLOGY | [address] [...] + + + + | [facility] DEPARTMENT OF | [address] | [place] [address] | | | PATHOLOGY | [address] | | | + + + + + | [facility] DEPARTMENT | [address] | [place] [address] | | | PATHOLOGY | [address] [...] + + + + | [facility] DEPARTMENT | [address] [facility] | [place] [address] | | | PATHOLOGY | [address] | | | + + + + + | [facility] DEPARTMENT | [address] [facility] | [place] [address] | | | PATHOLOGY | [address] [...] | | | | | | [place] | | | | | | [...] + + | [facility] RESP[facility] | [address] [facility] | [place], [place] | | | THERAPY | [facility] | [address] | | + + + + + | [facility] RESP[facility] | [address] [facility] | [place], [place] | | | THERAPY | [facility] | [address] | | + + + + + SAL RAHMAN ONLY (10/21/2007 4:05 PM PDT) + + [...] | + + + + + | [facility] | [address] | [place] [address] | | | PATHOLOGY | [address] | | | + + + + + | [facility] | [address] | [place] [address] | | | PATHOLOGY | [address] [...] + | [facility] DEPARTMENT OF | [address] [facility] | [place] [address] | | | PATHOLOGY | [address] | | | + + + + + | [facility] DEPARTMENT OF | [address] [facility] | [place] [address] | | | PATHOLOGY | [address] [...] | + + + + + | [facility] | [address] [facility] | [place] [address] | | | PATHOLOGY | [address] | | | + + + + + | [facility] | [address] [facility] | [place] [address] | | | PATHOLOGY | [address] [...] | + + + + + | [facility] | [address] | [place] [address] | | | PATHOLOGY | [address] | | | + + + + + | [facility] | [address] | [place] [address] | | | PATHOLOGY | [address] [...] + + + + | [facility] DEPARTMENT OF | [address] | [place] [address] | | | PATHOLOGY | [address] | | | + + + + + | [facility] DEPARTMENT OF | [address] | [place] [address] | | | PATHOLOGY | [address] [...] | | | | | | [place] | | | | | | [...] [facility] RES[facility] | [address] | [place], [place] | | | THERAPY | [address] | [address] | | + + + + + | [facility] RESP[facility] | [address] | [place], [place] | | | THERAPY | [facility] | [address] | | + + + + + [...] | + + + | Ordered by MAGONLIA DIEGO | [facility] | | | RESPIRATORY | | | THERAPY | + + + + + + + + | Performing | Address | City/State/Zipcode | Phone Number | | Organization | | | | + + + + + | [facility] RES[facility] | [address] | [place], [place] | | | THERAPY | [address] | [address] | | + + + + + | [facility] RES[facility] | [address] | [place], [place] | | | THERAPY | [address] | [address] | | + + + + + [...] | + + + + + | [facility] | [address] [facility] | [place] [address] | | | PATHOLOGY | [address] | | | + + + + + | [facility] | [address] [facility] | [place] [address] | | | PATHOLOGY | [address] [...] | | | | | | [place] | | | | | | [...] [facility] RES[facility] | [address] | [place], [place] | | | THERAPY | [address] | [address] | | + + + + + | [facility] RES[facility] | [address] | [place], [place] | | | THERAPY | [address] | [address] | | + + + + + [facility] LAB VENOUS DUPLEX LOWER EXTREMITY BILAT COMP (10/21/2007 8:00 AM PDT) + + + + + + | Component | Value | Ref Range | Performed | Pathologist | | | | | At | Signature | + + + + + + | [facility] LAB | Med Rec No:[id number] | | | | | VENOUS | [...] PMAccession | | | | | | #[id number]:LOWER | | | | | | EXTREMITY [...] | + +---------+ + + | [facility] DEPARTMENT OF | | | | [...] + | VASC LAB | Med Rec No:[id number] | | | | | PORTABLE | [...] PMAccession | | | | | | #[id number]:TRANSCRAN | | | | | | IAL [...] | + +---------+ + + | [facility] DEPARTMENT OF | | | | [...] [facility] | [address] | [place], [place] | | | THERAPY | [address] | [address] | | + + + + + | [facility] | [address] [facility] | [place], [place] | | | THERAPY | [address] [facility] | [address] | | + + + + + [...] + + | [facility] | [address] [facility] | [place], [place] | | | THERAPY | [address] | [address] | | + + + + + | [facility] | [address] [facility] | [place], [place] | | | THERAPY | [address] | [address] | | + + + + + [...] + + + + | [facility] DEPARTMENT OF | [address] | [place] [address] | | | PATHOLOGY | [address] | | | + + + + + | [facility] DEPARTMENT OF | [address] | [place] [address] | | | PATHOLOGY | [address] [...] + + + + | [facility] DEPARTMENT OF | [address] | [place] [address] | | | PATHOLOGY | [address] | | | + + + + + | [facility] | [address] | [place] [address] | | | PATHOLOGY | [address] [...] + + + + | [facility] DEPARTMENT OF | [address] | [place] [address] | | | PATHOLOGY | [address] | | | + + + + + | [facility] | [address] [facility] | [place] [address] | | | PATHOLOGY | [address] [...] | + + + + + | [facility] | [address] [facility] | [place] [address] | | | PATHOLOGY | [address] | | | + + + + + | [facility] | [facility] | [place] [address] | | | PATHOLOGY | [address] [...] + + + + | [facility] DEPARTMENT OF | [address] | [place] [address] | | | PATHOLOGY | [address] | | | + + + + + | [facility] DEPARTMENT OF | [address] | [place] [address] | | | PATHOLOGY | [address] [...] + + + + | [facility] DEPARTMENT OF | [address] | [place] [address] | | | PATHOLOGY | [address] | | | + + + + + | [facility] DEPARTMENT OF | [address] | [place] [address] | | | PATHOLOGY | [address] [...] | | | | | | Ipratrop[place] .5 | | | | | | [...] + + | [facility] | [address] [facility] | [place], [place] | | | THERAPY | [facility] | [address] | | + + + + + | [facility] | [address] [facility] | [place], [place] | | | THERAPY | [facility] | [address] | | + + + + + [...] | + +---------+ + + | [facility] DEPARTMENT OF | | | | [...] + + + + | [facility] DEPARTMENT OF | [address] [facility] | [place] [address] | | | PATHOLOGY | [address] | | | + + + + + | [facility] DEPARTMENT OF | [address] [facility] | [place] [address] | | | PATHOLOGY | [address] [...] DEPARTMENT OF | [address] | [place] [address] | | | PATHOLOGY | [address] | | | + + + + + | [facility] DEPARTMENT OF | [address] | [place] [address] | | | PATHOLOGY | [address] [...] | + + + + + | [facility] | [address] [facility] IN[facility] | [place] [address] | | | PATHOLOGY | [address] | | | + + + + + | [facility] | [address] [facility] | [place] [address] | | | PATHOLOGY | [address] [...] | + + + + + | [facility] | [address] | [place] [address] | | | PATHOLOGY | [address] | | | + + + + + | [facility] | [address] | [place] [address] | | | PATHOLOGY | [address] [...] + + + + | [facility] DEPARTMENT OF | [address] | [place] [address] | | | PATHOLOGY | [address] | | | + + + + + | [facility] | [address] | [place] [address] | | | PATHOLOGY | [address] [...] DEPARTMENT OF | [address] | [place] [address] | | | PATHOLOGY | [address] | | | + + + + + | [facility] DEPARTMENT OF | [address] | [place] [address] | | | PATHOLOGY | [address] [...] | + + + + + | [facility] | [address] | [place] [address] | | | PATHOLOGY | [address] | | | + + + + + | [facility] | [address] [place] [address] [address] | [place] [address] | | | PATHOLOGY | [address] [...] | + + + + + | [facility] | [address] [facility] | [place] [address] | | | PATHOLOGY | [address] | | | + + + + + | [facility] | [address] [place] [address] | [place] [address] | | | PATHOLOGY | [address] [...] | + + + + + | [facility] | [address] [facility] | [place] [address] | | | PATHOLOGY | [address] | | | + + + + + | [facility] | [address] [facility] | [place] [address] | | | PATHOLOGY | [address] [...] + + + + | [facility] DEPARTMENT OF | [address] | [place] [address] | | | PATHOLOGY | [address] | | | + + + + + | [facility] OF | [address] | [place] [address] | | | PATHOLOGY | [address] [...] + + + + | [facility] DEPARTMENT OF | [address] | [place] [address] | | | PATHOLOGY | [address] | | | + + + + + | [facility] DEPARTMENT OF | [address] | [place] [address] | | | PATHOLOGY | [address] [...] DEPARTMENT OF | [address] | [place] [address] | | | PATHOLOGY | [address] | | | + + + + + | [facility] | [address] | [place] [address] | | | PATHOLOGY | [address] | | | + + + + + VASC LAB PORTABLE TRANSCRANIAL DOPPLER COMPLETE (10/20/2007 2:23 AM PDT) + + + + + + | Component | Value | Ref Range | Performed | Pathologist | | | | | At | Signature | + + + + + + | VASC LAB | Med Rec No:[id number] | | | | | PORTABLE | [...] AMAccession | | | | | | #[id number]:TRANSCRAN | | | | | | IAL [...] [facility] RESPIRATORY | [address] | [place], [place] | | | THERAPY | [address] | [address] | | + + + + + | [facility] RESPIRATORY | [address] | [place], [place] | | | THERAPY | [address] | [address] | | + + + + + [...] | + + + + + | [facility] | [address] [facility] | [place] [address] | | | PATHOLOGY | [address] | | | + + + + + | [facility] | [address] [facility] | [place] [address] | | | PATHOLOGY | [address] [...] | + + + + + | [facility] | [address] | [place] [address] | | | PATHOLOGY | [address] | | | + + + + + | [facility] | [address] | [place] [address] | | | PATHOLOGY | [address] [...] DEPARTMENT OF | [address] | [place] [address] | | | PATHOLOGY | [address] | | | + + + + + | [facility] DEPARTMENT OF | [address] | [place] [address] | | | PATHOLOGY | [address] [...] + + + + | [facility] DEPARTMENT OF | [facility] | [place] [address] | | | PATHOLOGY | [address] | | | + + + + + | [facility] DEPARTMENT OF | [facility] | [place] [address] | | | PATHOLOGY | [address] [...] DEPARTMENT OF | [address] | [place] [address] | | | PATHOLOGY | [address] | | | + + + + + | [facility] DEPARTMENT | [address] | [place] [address] | | | PATHOLOGY | [address] [...] DEPARTMENT OF | [address] | [place] [address] | | | PATHOLOGY | [address] | | | + + + + + | [facility] DEPARTMENT OF | [address] | [place] [address] | | | PATHOLOGY | [address] [...] | + + + + + | [facility] | [address] | [place] [address] | | | PATHOLOGY | [address] | | | + + + + + | [facility] | [address] | [place] [address] | | | PATHOLOGY | [address] [...] + + + + | [facility] DEPARTMENT OF | [address] | [place] [address] | | | PATHOLOGY | [address] | | | + + + + + | [facility] DEPARTMENT OF | [facility] | [place] [address] | | | PATHOLOGY | [address] [...] + | [facility] DEPARTMENT OF | [address] [facility] | [place] [address] | | | PATHOLOGY | [address] | | | + + + + + | [facility] DEPARTMENT OF | [address] [facility] | [place] [address] | | | PATHOLOGY | [address] [...] DEPARTMENT OF | [address] | [place] [address] | | | PATHOLOGY | [address] | | | + + + + + | [facility] DEPARTMENT OF | [address] | [place] [address] | | | PATHOLOGY | [address] [...] DEPARTMENT OF | [address] | [place] [address] | | | PATHOLOGY | [address] | | | + + + + + | [facility] DEPARTMENT OF | [address] | [place] [address] | | | PATHOLOGY | [address] [...] + + + + | [facility] DEPARTMENT OF | [address] [facility] | [place] [address] | | | PATHOLOGY | [address] | | | + + + + + | [facility] DEPARTMENT OF | [address] [facility] | [place] [address] | | | PATHOLOGY | [address] [...] + + + + | [facility] DEPARTMENT | [address] [facility] | [place] [address] | | | PATHOLOGY | [address] | | | + + + + + | [facility] DEPARTMENT | [facility] | [place] [address] | | | PATHOLOGY | [address] [...] | | | | | | MMarine, PhD.Lift Manager | | | | | | surgeon: [...] artery. | | | | | | A5-[place] Justin was | | | | | [...] DEPARTMENT OF | [address] | [place] [address] | | | PATHOLOGY | [address] | | | + + + + + | [facility] DEPARTMENT OF | [address] | [place] [address] | | | PATHOLOGY | [address] [...] + | [facility] DEPARTMENT OF | [address] [facility] | [place] [address] | | | PATHOLOGY | [address] | | | + + + + + | [facility] DEPARTMENT OF | [address] [facility] | [place] [address] | | | PATHOLOGY | [address] [...] + + + | CSF RBC | 474909 | /cu mm | [facility] | | [...] DEPARTMENT OF | [address] | [place] [address] | | | PATHOLOGY | [address] | | | + + + + + | [facility] DEPARTMENT | [address] | [place] [address] | | | PATHOLOGY | [address] | | | + + + + + PROTEIN, CSF (10/19/2007 6:01 AM PDT) + +---------+ + + + | Component | Value | Ref Range | Performed | Pathologist | | | | | At | Signature | + +---------+ + + + | TOTAL | 298 (H) | 15 - 45 mg/dL | [facility] | | | PROTEIN CSF | | [...] DEPARTMENT OF | [address] | [place] [address] | | | PATHOLOGY | [address] | | | + + + + + | [facility] DEPARTMENT | [address] | [place] [address] | | | PATHOLOGY | [address] | | | + + + + + GLUCOSE, CSF (10/19/2007 6:01 AM PDT) + +--------+ + + + | Component | Value | Ref Range | Performed | Pathologist | | | | | At | Signature | + +--------+ + + + | GLUCOSE CSF | 79 (H) | 40 - 70 mg/dL | [facility] | | | | | | DEPARTMENT [...] + + + + | [facility] DEPARTMENT OF | [address] [facility] | [place] [address] | | | PATHOLOGY | [address] | | | + + + + + | [facility] DEPARTMENT OF | [address] [facility] | [place] [address] | | | PATHOLOGY | [address] [...] | | | | | | [facility]. Culture: | | | | | | Final Report: No | | | | | | growth after 3 days. | | | | | | Final ReportComment: | | | | | | Test performed at [facility] | | | | | | [facility] | | | | | | [...] + + + | [facility] | [address] | [place] [address] | | | LAB-MICRO | | | [...] + | VASC LAB | Med Rec No:[id number] | | | | | PORTABLE | Name: | | | | | CAROTID | LGORIA ADHIKARI | | | | | DUPLEX [...] AMAccession | | | | | | #[id number]:CEREBROVA | | | | | | SCULAR [...] + | VASC LAB | Med Rec No:[id number] | | | | | PORTABLE | [...] AMAccession | | | | | | #[id number]:TRANSCRAN | | | | | | IAL [...] DEPARTMENT OF | [address] | [place] [address] | | | PATHOLOGY | [address] | | | + + + + + | [facility] DEPARTMENT OF | [address] | [place] [address] | | | PATHOLOGY | [address] [...] + + + + | [facility] DEPARTMENT OF | [address] | [place] [address] | | | PATHOLOGY | [address] | | | + + + + + | [facility] DEPARTMENT OF | [address] | [place] [address] | | | PATHOLOGY | [address] [...] + + + + | [facility] DEPARTMENT OF | [address] | [place] [address] | | | PATHOLOGY | [address] | | | + + + + + | [facility] DEPARTMENT OF | [address] | [place] [address] | | | PATHOLOGY | [address] [...] | + + + + + | [facility] | [address] [facility] | [place] [address] | | | PATHOLOGY | [address] | | | + + + + + | [facility] | [address] [facility] | [place] [address] | | | PATHOLOGY | [address] [...] | + + + + + | [facility] DEPARTMENT OF | [address] | [place] [address] | | | PATHOLOGY | [address] | | | + + + + + | [facility] DEPARTMENT OF | [address] | [place] [address] | | | PATHOLOGY | [address] [...] | [address] | [place] [address] | | | PATHOLOGY | [address] | | | + + + + + | [facility] DEPARTMENT OF | [address] | [place] [address] | | | PATHOLOGY | [address] [...] | + + + + + | [facility] | [address] [facility] | [place] [address] | | | PATHOLOGY | [address] | | | + + + + + | [facility] | [address] [place] [address] | [place] [address] | | | PATHOLOGY | [address] [...] | + + + + + | [facility] | [facility] | [place] [address] | | | PATHOLOGY | [address] | | | + + + + + | [facility] DEPARTMENT OF | [facility] | [place] [address] | | | PATHOLOGY | [address] [...] + + + + | [facility] DEPARTMENT OF | [address] | [place] [address] | | | PATHOLOGY | [address] | | | + + + + + | [facility] DEPARTMENT OF | [address] [facility] | [place] [address] | | | PATHOLOGY | [address] [...] RLB ([facility] [facility]) | | | [facility] [place] [address] | | | [place] [address] | | + + + + + + + + | Performing | Address | City/State/Zipcode | Phone Number | | Organization | | | | + + + + + | [facility] | [address] | [place] [address] | | | LABORATORY | | | [...] ([address] [facility]) [facility] | | | [place] [address] | | | [place] [address] | | + + + + + + + + | Performing | Address | City/State/Zipcode | Phone Number | | Organization | | | | + + + + + | [facility] | [address] | [place] [address] | | | LABORATORY | | | [...] + + + + | [facility] DEPARTMENT OF | [address] | [place] [address] | | | PATHOLOGY | [address] | | | + + + + + | [facility] DEPARTMENT OF | [address] | [place] [address] | | | PATHOLOGY | [address] [...] + + + + | [facility] DEPARTMENT | [address] [facility] | [place] [address] | | | PATHOLOGY | [address] | | | + + + + + | [facility] DEPARTMENT OF | [address] [facility] | [place] [address] | | | PATHOLOGY | [address] [...] + | [facility] DEPARTMENT OF | [address] [facility] | [place] [address] | | | PATHOLOGY | [address] | | | + + + + + | [facility] DEPARTMENT OF | [address] [facility] | [place] [address] | | | PATHOLOGY | [address] [...] + + + + | [facility] DEPARTMENT OF | [address] | [place] [address] | | | PATHOLOGY | [address] | | | + + + + + | [facility] OF | [facility] [address] | [place] [address] | | | PATHOLOGY | [address] [...] | + + + + + | [facility] | [address] [facility] | [place] [address] | | | PATHOLOGY | [address] | | | + + + + + | [facility] | [facility] | [place] [address] | | | PATHOLOGY | [address] [...] | | | | | | right [id number] into two | | | | | [...] Brandie | | | | | | M.D.Lift Manager | | | | | | surgeon:Anesthesia: [...] the | | | | | | [facility] and lateral | | | | | [...] artery. | | | | | | A5-[place] Justin was | | | | | [...] | + +---------+ + + | [facility] DEPARTMENT OF | | | | [...] | + + + + + | [facility] | [address] [facility] | [place] [address] | | | PATHOLOGY | [address] | | | + + + + + | [facility] DEPARTMENT OF | [address] [facility] | [place] [address] | | | PATHOLOGY | [address] [...] DEPARTMENT OF | [address] | [place] [address] | | | PATHOLOGY | [address] | | | + + + + + | [facility] DEPARTMENT | [address] | [place] [address] | | | PATHOLOGY | [address] [...] | + + + + + | [facility] | [address] [facility] | [place] [address] | | | PATHOLOGY | [address] | | | + + + + + | [facility] | [facility] | [place] [address] | | | PATHOLOGY | [address] [...] DEPARTMENT OF | [address] | [place] [address] | | | PATHOLOGY | [address] | | | + + + + + | [facility] | [address] | [place] [address] | | | PATHOLOGY | [address] [...] | + + + + + | [facility] | [address] [facility] | [place] [address] | | | PATHOLOGY | [address] | | | + + + + + | [facility] | [address] [facility] | [place] [address] | | | PATHOLOGY | [address] [...] | + + + + + | [facility] | [address] | [place] [address] | | | PATHOLOGY | [address] | | | + + + + + | [facility] | [address] | [place] [address] | | | PATHOLOGY | [address] [...] + + + + | PRODUCT | [id number] | | [facility] | | | UNIT [...] DEPARTMENT OF | [address] | [place] [address] | | | PATHOLOGY | [address] | | | + + + + + | [facility] DEPARTMENT | [address] | [place] [address] | | | PATHOLOGY | [address] [...] + + + + | PRODUCT | [id number] | | [facility] | | | UNIT [...] | + + + + + | [facility] | [address] [facility] | [place] [address] | | | PATHOLOGY | [address] | | | + + + + + | [facility] DEPARTMENT OF | [facility] | [place] [address] | | | PATHOLOGY | [address] [...] + + + + | [facility] DEPARTMENT OF | [address] | [place] [address] | | | PATHOLOGY | [address] | | | + + + + + | [facility] | [address] | [place] [address] | | | PATHOLOGY | [address] [...] + + + + | [facility] DEPARTMENT OF | [address] | [place] [address] | | | PATHOLOGY | [address] | | | + + + + + | [facility] DEPARTMENT OF | [address] | [place] [address] | | | PATHOLOGY | [address] [...] DEPARTMENT OF | [address] | [place] [address] | | | PATHOLOGY | [address] | | | + + + + + | [facility] DEPARTMENT OF | [address] | [place] [address] | | | PATHOLOGY | [address] [...] + + + + | [facility] DEPARTMENT OF | [address] | [place] [address] | | | PATHOLOGY | [address] | | | + + + + + | [facility] | [address] [facility] | [place] [address] | | | PATHOLOGY | [address] | | | + + + + + OPERATION RECORD (10/18/2007 12:00 AM PDT) + + + | Narrative | Performed At | + + + | [id number] | | | [id number] | | | [id number] [facility] [id number] | | | Date: 10/18/2007 Attending Surgeon: | | | Magnolia Diego M.D. Lift Manager(s): | | | Xochitl Davis M.D. | [...] flap was | | | turned anteriorly. Avon holes were then placed over the root [...] M.D. KG / HS | | | [id number] / [id number] / [id number] / | | | | | + + + + + | Procedure Note | + + | Ryan Howell, Xochitl - 10/18/2007 12:00 AM PDT [id number] | | [id number] [facility] | | [id number] Date: 10/18/2007 Attending Surgeon: | | Magnolia Diego M.D. Lift Manager(s): Xochitl Davis M.D. | | Preoperative Diagnosis(es):Subarachnoid [...] | | a myocutaneousflap was turned anteriorly. Avon holes were then placed over the root [...] aneurysm. | | Narinder Serrano M.D. / [id number] / [id number] / [id number] /D: | | 10/27/2007T: 10/27/2007 | | [...] a myocutaneous | |flap was turned anteriorly. Avon holes were then placed over the root [...] | | | |KG / HS | |[id number] / [id number] / [id number] / | | | | | | | | | | | | | | | | | | | | | + + TEACHING PHYSICIAN (10/18/2007 12:00 AM PDT) + + + | Narrative | Performed At | + + + | [id number] | | | [id number] | | | [facility] [id number] | | | Date: 10/18/2007 Attending Surgeon: | | | Magnolia Diego M.D. Lift Manager(s): | | | Xochitl Davis M.D. | [...] M.D. AD | | | / HS [id number] / [id number] / [id number] / | | | | | + + + + + | Procedure Note | + + | Magnolia Diego MD - 10/18/2007 12:00 AM PDT [id number] | | [id number] [facility] | | [id number] Date: 10/18/2007ttending Surgeon: Magnolia | | Narinder Diego Lift Manager(s): Xochitl Davis M.D. | | Taylor Chávez [...] Dr.Kiarash Davis. Magnolia Diego M.D. MANDEEP / [id number] | | / [id number] / [id number] / T: 10/19/2007 | |Subarachnoid hemorrhage due [...] | | | |AD / HS | |[id number] / [id number] / [id number] / | | | | | | [...] 4:00 | | | | | Starting [facility] 10/19/07 at 1553, | | PM PDT | | | | | Until [facility] 10/19/07 at 1722 | | | [...] | | | | | | Starting [facility] 10/19/07 at 0700, | | | [...] PDT | | | | | Until [facility] 10/26/07 at 1316, | | | [...] | | | | at 1145, Until [facility] 10/26/07 at 0917 | | | [...]
--- OUTSIDE RECORDS SUMMARY | ~2019-10-16 | XMS | Encounter Summary ---
Demographics + + + | Address | [address] | | | [place] [address] | + + + | Home Phone | | + + + | Preferred Language | Unknown | + + + | Marital Status | | + + + | Mandaeism Affiliation | Unknown | + + + | Race | White | + + + | Ethnic Group | Not or | + + + Author + + + | Author | [facility] | | | and [place] | + + + | Organization | [facility] | | | [...] Providers + +------+ + | Care Life Scientist Name | Role | Phone | + [...] [address] | | | | | [place], | [place], [place] | | | | | [place] [address] | [address] | | | | | [phone] | | | +--------+ + + + [...] + + | REFERENCE LAB | [address] [facility] | [place] | [phone] | | [facility] | | [address] | | + + + + + | REFERENCE LAB | [address] [facility] | [place] | [phone] | | [facility] | | [address] | | + + + + + [...] + | REFERENCE LAB | [address] | [place] | [phone] | | [facility] | | [address] | | + + + + + | REFERENCE LAB | [address] | [place] | [phone] | | [facility] | | [address] | | + + + + + [...] + | REFERENCE LAB | [address] | [place] | [phone] | | [facility] | | [address] | | + + + + + | REFERENCE LAB | [address] | [place] | [phone] | | [facility] | | [address] | | + + + + + [...] + + | REFERENCE LAB | [address] [facility] | [place] | [phone] | | [facility] | | [address] | | + + + + + | REFERENCE LAB | [address] [facility] | [place] | [phone] | | [facility] | | [address] | | + + + + + [...] [address] | [place] | [phone] | | [facility] | | [address] | | + + + + + | REFERENCE LAB | [address] [facility] | [place], [place] | [phone] | | [facility] | | [address] | | + + + + + [...] + + | REFERENCE LAB | [address] [facility] | [place] | [phone] | | [facility] | | [address] | | + + + + + | REFERENCE LAB | [address] [facility] | [place] | [phone] | | [facility] | | [address] | | + + + + + [...] [address] | [place] | [phone] | | [facility] | | [address] | | + + + + + | REFERENCE LAB | [address] | [place] | [phone] | | [facility] | | [address] | | + + + + + [...] + + | REFERENCE LAB | [address] [facility] | [place] | [phone] | | [facility] | | [address] | | + + + + + | REFERENCE LAB | [address] | [place] | [phone] | | [facility] | | [address] | | + + + + + [...] + + + | REFERENCE LAB | [facility] [address] | [place] | [phone] | | [facility] | | [address] | | + + + + + | REFERENCE LAB | [facility] [address] | [place] | [phone] | | [facility] | | [address] | | + + + + + [...] [address] | [place] | [phone] | | [facility] | | [address] | | + + + + + | REFERENCE LAB | [address] | [place] | [phone] | | [facility] | | [address] | | + + + + + [...] + | REFERENCE LAB | [address] [place] | [place] | [phone] | | [facility] | | [address] | | + + + + + | REFERENCE LAB | [address] [place] | [place] | [phone] | | [facility] | | [address] | | + + + + + [...] + + | REFERENCE LAB | [address] [place] [address] [facility] | [place] | [phone] | | ALF - EMDR | | [address] | | + + + + + | REFERENCE LAB | [address] [place] [address] [facility] | [place] | [phone] | | [facility] | | [address] | | + + + + + [...] [address] | [place] | [phone] | | [facility] [place] | | [address] | | + + + + + | REFERENCE LAB | [address] [facility] | [place] | [phone] | | [facility] | | [address] | | + + + + + [...] + + + | REFERENCE LAB | [facility] [place] | [place] | [phone] | | [facility] | | [address] | | + + + + + | REFERENCE LAB | [address] [place] [address] [address] [place] | [place] | [phone] | | [facility] | | [address] | | + + + + + documented in this encounter Visit Diagnoses Not on filedocumented in this encounter"
--- OUTSIDE RECORDS SUMMARY | ~2019-10-16 | XMS | Encounter Summary ---
Demographics + + + | Address | [address] | | | [place] [address] | + + + | Home Phone | | + + + | Preferred Language | Unknown | + + + | Marital Status | | + + + | Quaker Affiliation | MET | + + + [...] Team Providers + +------+ + | Care [employer] Coating Machine Tender Name | Role | Phone | + [...]
--- OUTSIDE RECORDS SUMMARY | ~2019-10-16 | XMS | Encounter Summary ---
Demographics + + + | Address | [address] | | | [place] [address] | + + + | Home Phone [...] Team Providers + +------+ + | Care Analytical Lab Analyst Name | Role | Phone | + +------+ + | No Pcp Per Patient | PCP | Unavailable | + +------+ + Reason for Visit + + + | Reason | Comments | + + + | Return Patient | | + + + | Ct Scan Result | | + + + Office Visit - E/M Services (Routine) +--------+--------+ + + + + | Status | Reason | Specialty | Diagnoses / | Referred By | Referred To | | | | | Procedures | Contact | Contact | +--------+--------+ + + + + | Closed | | Neurological | Diagnoses | Doug, | Cecile, | | | | Surgery | SA[facility] | Remington Santos MD | MD Paramjit | | | | | (subarachnoi | [address] | [address] | | | | | d | [address] | Ave | | | | | hemorrhage) | [address] | [place], [place] | | | | | (HCC) | [place], | [address] | | | | | Procedures | [place] [address] | Phone: | | | | | [place] EST | Phone: | [phone] | | | | | PATIENT | [phone] | Fax: | | | | | LEVEL V | Fax: | [phone] | | | | | | [phone] | | +--------+--------+ + + + + Encounter Details +--------+---------+ + + + | Date | Type | Department | Care Team | Description | +--------+---------+ + + + | 02/24/ | Office | Neurosurgery at | Paramjit Huber MD | Skull defect | | 2019 | Visit | [facility] [address] | [address] | (Primary Dx) | | | | Ave [facility] for | [place], [place] | | | | | Health and Healing, | [address] | | | | | [facility] | [phone] | | | | | floor [place], [place] | | | | | | [address] | | | | | | [phone] | | | +--------+---------+ + + + [...] | Blood Pressure | 102/66 | 02/24/2018 12:26 PM | | | [...] | 51.3 kg (113 lb 3.2 | 02/24/2018 12:26 PM | | | | oz) | PST | | + + + + + | Height | 149.9 cm (4' 11") | 02/24/2018 12:26 PM | | | | | PST | | + + + + + | Body Mass Index | 22.86 | 02/24/2018 12:26 PM | | | [...] documented as of this encounter Progress Notes Bety Cavazos MD - 02/24/2018 12:15 PM [facility] NEUROSURGERY CLINIC NOTE Author: BETY CAVAZOS MD Today's Date: 02/22/2018 Attending Physician: Paramjit Huber MD PROCEDURES: 10/18/2007 R pterional crani for clipping of ruptured Acomm aneurysm 03/03/2008 L neck incision and drainage 03/03/2008 HVLP 04/12/2008 R VPS medium pressure 10/23/2015 R synthetic cranioplasty 12/05/2017 explant of R VPS and explant of synthetic cranioplasty HPI: Cielo Bell is a 68 y.o woman with CAD, ND s/p stent on ASA/plavix, HTN, 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 She has underwent six weeks of treatment with ceftriaxone by the ID service. She is here to day to discuss her right synthetic cranioplasty. She is otherwise doing well. No headaches. VITAL SIGNS: BP 102/66 | Ht 1.499 m (4' 11") | Wt 51.3 kg (113 lb 3.2 oz) | BMI 22.86 kg/(m^2) NEUROLOGICAL EXAM: A&O to name, date, location, and situation; following commands, answering appropriately PERRL, EOMI, Face motor grossly intact; eyes close fully Tongue midline No Pronator Drift RUE 5 RLE 5 LUE 5 LLE 5 Clear right acquired skull defect IMAGING: IMPRESSION: 1. Right acquired skull defect 2. History of ruptured acomm aneurysm s/p right craniotomy for clipping ASSESSMENT/PLAN: 68 y.o. female with history of ruptured acomm aneurysm s/p clipping in 2007, who has had in fected cranioplasty s/p explant who presents back today to discuss replacement of right cran ioplasty in conjunction with Dr White Neurologically intact. She continues to smoke at this time despite multiple different types of treatment. The only treatment left that she has not yet tried is Chantix. At this time adrian levin this is a redo surgery, and that she has a previously infected flap, her smoking will p lace her at much higher risk for repeated infection. We would recommend that she try Chantix to try to stop smoking to avoid further complications. We will route this to her PCP to rec ommend that she discus with her PCP for starting this medication. - consult to [place] for right synthetic cranioplasty - recommend stop smoking, should try Chantix Dr. Huber, attending neurological surgeon, is in agreement with the above assessment and pl an. BETY CAVAZOS MD Neurological Surgery, PGY-5 Neurosurgery Attending Note I saw and evaluated this patient on 02/24/2018 with my resident during our neurosurgical clin ic. See also my resident's note from today's visit. I agree with the documentation findings and plan of care. Please refer to Dr. Cavazos's history and physical for details of presentation. I spent 15 minutes skmd-ng-wtno with the patient of which greater than 50% was spent counse ling the patient regarding the details of their progress. I answered all questions and the patient expressed understanding at the conclusion of this office visit. In addition, I inst ructed the patient to call the office or return should any issues or return should any issue s or concerns arise. Paramjit Huber MD Wireless Telegrapher Director, Cerebrovascular and Skull Base Surgery Department of Neurological Surgery and Interventional Neuroradiology [address] [place] [address] Neurosurgery Attending Note I saw and evaluated this patient on 02/24/2018 with my resident during our neurosurgical clin ic. See also my resident's note from today's visit. I agree with the documentation findings and plan of care. Please refer to Dr. Cavazos's history and physical for details of presentation. I spent 15 minutes wwzc-yr-wpbw with the patient of which greater than 50% was spent counse ling the patient regarding the details of their progress. I answered all questions and the patient expressed understanding at the conclusion of this office visit. In addition, I inst ructed the patient to call the office or return should any issues or return should any issue s or concerns arise. Paramjit Huber MD Wireless Telegrapher Director, Cerebrovascular and Skull Base Surgery Department of Neurological Surgery and Interventional Neuroradiology [address] [place] [address] documented in this encou nter Plan of Treatment Not on filedocumented as of this encounter Visit Diagnoses + + | Diagnosis | + + | Skull defect - Primary Unspecified acquired deformity of head | + + documented in this encounter
--- OUTSIDE RECORDS SUMMARY | ~2019-10-16 | XMS | Encounter Summary ---
Demographics + + + | Address | [address] | | | [place] [address] | + + + | Home Phone | | + + + | Preferred Language | Unknown | + + + | Marital Status | | + + + | Temple Affiliation | MET | + + + | Race | White | + + + | Ethnic Group | Not or | + + + Author + + + | Author | [facility] | + + + | Organization | [facility] | + + + | [...] Team Providers + +------+ + | Care Marine Habitat Resource Specialist Name | Role | Phone | [...] Surgery Services at | [address] | glands (Primary Dx) | | | | [address] | [place], [place] | | | | | [address] | [address] | | | | | Physician's | [phone] | | | | | [place], 2nd floor | | | | | | [place], [place] | | | | | | [address] | | | | | | [phone] | | | +--------+---------+ + + + [...] Note Time: 06/06/2014 8:30 AM Status: Signed 5Th Grade Teacher: Beny Cruz MD (Physician) Please see Dr. [...] Note Time: 05/28/2014 12:11 PM Status: Signed 5Th Grade Teacher: Beny Cruz MD (Physician) OTOLARYNGOLOGY/HEAD AND NECK [...] Bladder suspension 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 Nurse Consultant shunt Right tympanoplasty (2-3 decades ago per [...] Supple, intact ROM; no thyroid masses palpable. SERVICE DELIVERY ANALYST shunt apparent under skin coursing through posterior [...] MD Otolaryngology/Head and Neck Surgery PGY-1, Pager: [phone] documented in this e ncounter Miscellaneous Notes [...]
--- OUTSIDE RECORDS SUMMARY | ~2019-10-16 | XMS | Encounter Summary ---
Demographics + + + | Address | [address] | | | [place] [address] | + + + | Home Phone | | + + + | Preferred Language | Unknown | + + + | Marital Status | | + + + | Christian Affiliation | Unknown | + + + | Race | White | + + + | Ethnic Group | Not or | + + + Author + + + | Author | [facility] | | | and [place] | + + + | Organization | [facility] | | [...] Providers + +------+ + | Care Tool Inspector Name | Role | Phone | [...] | [address] | [address] | | | | | Procedures | [place] | [place], | | | | | [place] Nuclear | [place], [place] | [place] | | | | | Stress Test | [address] | [address] | | | | | (Vasodilator | Phone: | Phone: | | | | | ) CHG | [phone] | [phone] | | | | | MYOCARDIAL | Fax: | Fax: | | | | | SPECT | [phone] | [phone] | | | | | MULTIPLE | | | | | | | STUDIES PA | | | | | | | CV STRS TST | | | | | | | XERS&/OR RX | | | | | | | CONT ECG W/O | | | | | | | I&R PA | | | | | | | [...] + + | 07/29/ | Office | [facility] | Chana Luu, | Precordial pain | | 2017 | Visit | CARDIOLOGY [address] | MD [address] | (Primary Dx); | | | | [place], | [place], [place] | Dyslipidemia; | | | | [place] [address] | [address] | Coronary artery | | | | [phone] | | disease involving | | | | | | enterprise coronary | | | | | | artery of enterprise | | | | | | heart [...] has an upcoming appointment to see a road machine operator in [place] and she is hoping that vijay amaro [...] due to bronchospasm CAD (coronary artery disease), enterprise coronary artery Cardiac Cath: 12/28/14 CONCLUSIONS: 1. [...] Nausea And Vomiting Codeine Nausea And Vomiting [place] Tar Hives Povidone Iodine Hives Sulfa Antibiotics [...] test Electronically signed by: Chana Luu MD [facility] 07/28/2016 Portions of this chart may have been created with [employer]in[employer] voice recognition software. Occasi onal wrong-word or [...] by: | | | Lynsey Subramanian MD [facility] 08/06/2016, 12:18 | | + + + + + ----+ | Narrative | Performed At | + + ----+ | | [facility] | | NUCLEAR MEDICINE STRESS TEST REPORT Patient Name: Cielo Larson | [facility] | | Ray Study Date: 08/06/2016 Primary Care Provider: Lance Jerry | [facility] | | Mumtaz : 1950 Age: 66 [...] mmHg. EKG baseline underlying sinus rhythm, anteroseptal IA, | | | age indeterminant. Peak unchanged. [...] [address] | ANTHONY Crandall | [phone] | | [facility] | | [address] | | | - IMAGING | | | | + + + + + documented in this encounter Visit Diagnoses + + | Diagnosis | + + | Precordial pain - Primary | + + | Dyslipidemia Other and unspecified hyperlipidemia | + + | Coronary artery disease involving enterprise coronary artery of enterprise heart without | | angina pectoris | + + | Chronic obstructive pulmonary disease, unspecified COPD type (HCC) | + + documented in this encounter
--- OUTSIDE RECORDS SUMMARY | ~2019-10-16 | XMS | Encounter Summary ---
Demographics + + + | Address | [address] | | | [place] [address] | + + + | Home Phone | | + + + | Preferred Language | Unknown | + + + | Marital Status | | + + + | Sabianism Affiliation | MET | + + + [...] Team Providers + +------+ + | Care Corporate Specialist Name | Role | Phone | + +------+ + | No Pcp Per Patient | PCP | Unavailable | + +------+ + Encounter Details +--------+---------+ + + + | Date | Type | Department | Care Team | Description | +--------+---------+ + + + | 12/23/ | Office | Otolaryngology | Ata White MD | History of | | 2018 | Visit | Head and Neck | [address] | cranioplasty | | | | Surgery Services at | [address] [place], | (Primary Dx) | | | | [address] | [place] [address] | | | | | [address] | [phone] | | | | | Physician's | | | | | | Pavilion, 2nd floor | | | | | | [place], [place] | | | | | | [address] | | | | | | [phone] | | | +--------+---------+ + + + [...] | Blood Pressure | 109/65 | 12/23/2017 2:26 PM | | | | | PDT | | + + + + + | Pulse | 75 | 12/23/2017 2:26 PM | | | | | PDT [...] Weight | 49.4 kg (109 lb) | 12/23/2017 2:26 PM | | | | | PDT | | + + + + + | Height | - | - | | + + + + + | Body Mass Index | 22.02 | 12/23/2017 10:29 AM | | | [...] encounter Progress Notes Ata White MD - 12/23/2017 3:25 PM PDTClinic Date:12/23/2017 Subjective: I saw this young lady today. She has had a cranioplasty done a number of year s ago and has subsequently developed an infection which required removal of the cranium plas ty. Once this had been taken out, she has settled down and now came in to have the wound lo oked at in consideration of what her next steps would be. Her scalp is well healed. I removed 2 of the sutures. A little bit of the necrotic skull, scalp, but there is good, healthy tissue underneath that. I think that she is healing. There is no sign of any infection. There is no exposure of i ntracranial contents. I think given the scab and the thinness of the scalp in the middle that at her next craniop lasty, it is going to be hard to settle things in without providing good vascularized tissue . It may be that we could rotate things around, but I suspect that she will do better with a vascularized tissue given that she has already had 1 history of infection. I think a radial forearm flap would be the best bet under these circumstances, but we will see what she looks like when next she comes in. MD CHANDRIKA Hansen/NGUYEN /[id number] signed by Ata White MD at 12/26/2017 9:20 AM Ata Siddiqui MD - 12/23/2017 2:45 PM PDTDictation #1 [id number] signed by Ata White MD at 12/23/2017 3:15 PM PDTdocumented in this en counter Plan of Treatment Not on filedocumented as of this encounter Visit Diagnoses + + | Diagnosis | + + | History of cranioplasty - Primary | + + documented in this encounter"
--- OUTSIDE RECORDS SUMMARY | ~2019-10-16 | XMS | Encounter Summary ---
Demographics + + + | Address | [address] | | | [place] [address] | + + + | Home Phone | | + + + | Preferred Language | Unknown | + + + | Marital Status | | + + + | Protestant Affiliation | Unknown | + + + | Race | White | + + + | Ethnic Group | Not or | + + + Author + + + | Author | [facility] | | | and [place] | + + + | Organization | [facility] | | [...] Team Providers + +------+ + | Care Md Allergy Immunology Name | Role | Phone | + +------+ + PCP | Unavailable | + +------+ + Encounter Details +--------+ + + + + | Date | Type | Department | Care Team | Description | +--------+ + + + + | 06/18/ | Hospital | [facility] | | | | 1991 | Encounter | MED CTR XRAY [address] | | | | | | [address] | | | | | | [place] [address] | | | | | | [phone] | | | +--------+ + + + [...]
--- OUTSIDE RECORDS SUMMARY | ~2019-10-16 | XMS | Encounter Summary ---
Demographics + + + | Address | [address] | | | [place] [address] | + + + | Home Phone | | + + + | Preferred Language | Unknown | + + + | Marital Status | | + + + | Jehovah'S Witness Affiliation | Unknown | + + + | Race | White | + + + | Ethnic Group | Not or | + + + Author + + + | Author | [facility] | | | and [place] | + + + | Organization | [facility] | | [...] Team Providers + +------+ + | Care Rhinologist Name | Role | Phone | + +------+ + | Lance Pandya DO | PCP | | + +------+ + Reason for Visit + +--------+ + | Reason | Onset | Comments | | | Date | | + +--------+ + | Appointment | 03/11/ | RECALL | | | 2018 | | + +--------+ + Encounter Details +--------+ + + + + | Date | Type | Department | Care Team | Description | +--------+ + + + + | 03/11/ | Telephone | [facility] | Chadd Tian MD | Appointment (RECALL) | | 2017 | | CARDIOLOGY [address] | [address] | | | | | [place], | [place], [place] | | | | | [place] [address] | [id number] | | | | | [phone] | | | +--------+ + + + [...] this encounter Miscellaneous Notes Telephone Encounter - Michelle Mathias - 03/18/2017 3:22 PM PSTSpoke with pt, states she will not schedule follow up. Pt is now seeing Dr. Smith elephone Encounter - Michelle Mathias - 03/11/2017 10:04 AM PSTLast office visit: Provider seen: Dr. Luu Month due back: January 2017 Follow up type due: 6 month THR Needed: No Additional testing/labs due prior: No Outcome of call: Left Voicemail Message documented in this enc ounter Plan of Treatment Not on filedocumented as of this encounter Visit Diagnoses Not on filedocumented in this encounter"
--- OUTSIDE RECORDS SUMMARY | ~2019-10-16 | XMS | Encounter Summary ---
Demographics + + + | Address | [address] | | | [place] [address] | + + + | Home Phone [...] + + | Author | [facility] | + + + | Organization | [facility] | + + + | Address | [...] Providers + +------+ + | Care Medical Claims Processor Name | Role | Phone | + [...] | | | 2014 | Event | [facility] | [address] | | | | | [facility] | [facility] | | | | | Hospital Admitting | [place] [address] | | | | | Desk Located on the | [phone] | | | | | 9th floor | | | | | | [place], [place] | Matthew Smyth MD | | | | | [address] | | | +--------+ + + + [...] be different from the original. 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 Tympanoplasty Right 1987 Lumpectomy of left [...] - 06/07/2014 7:09 AM PDT Cielo Bell [id number] Allergies Allergen Reactions [place] Tar Hives Betadine [Povidone-Iodine (With Soap)] Unknown [...] Bladder suspension 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 No [...] Performed by Resident MATTHEW SMYTH DL by staff electronic warfare officer student Saurabh. 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
--- OUTSIDE RECORDS SUMMARY | ~2019-10-16 | XMS | Encounter Summary ---
Demographics + + + | Address | [address] | | | [place] [address] | + + + | Home Phone | | + + + | Preferred Language | Unknown | + + + | Marital Status | | + + + | Buddhist Affiliation | Unknown | + + + | Race | White | + + + | Ethnic Group | Not or | + + + Author + + + | Author | [facility] | | | and [place] | + + + | Organization | [facility] | | | [...] Providers + +------+ + | Care Director Of Corporate Communications Name | Role | Phone | + +------+ + | Lance Pandya DO | PCP | | + +------+ + Encounter Details +--------+ + + + + | Date | Type | Department | Care Team | Description | +--------+ + + + + | 12/29/ | Orders Only | [facility] | Chana Luu, | Medication refill | | 2014 | | CARDIOLOGY [address] | MD [address] | (Primary Dx) | | | | [place], | [place], [place] | | | | | [place] [address] | [address] | | | | | [phone] | | | +--------+ + + + [...] + | Diagnosis | + + | Medication refill - Primary Issue of repeat prescriptions | + + documented in this encounter"
--- OUTSIDE RECORDS SUMMARY | ~2019-10-16 | XMS | Encounter Summary ---
Demographics + + + | Address | [address] | | | [place] [address] | + + + | Home Phone [...] + + + | Author | [facility] | + + + | Organization | [facility] | + + + | [...] Team Providers + +------+ + | Care Purchasing Buyer Name | Role | Phone | + [...] | [facility] | [place], [place] | | | | | Health and Healing, | [address] | | | | | Building [address]th | [phone] | | | | | floor [place], [place] | | | | | | [address] | | | | | | [phone] | | | +--------+ + + + [...]
--- OUTSIDE RECORDS SUMMARY | ~2019-10-16 | XMS | Encounter Summary ---
Demographics + + + | Address | [address] | | | [place] [address] | + + + | Home Phone [...] Team Providers + +------+ + | Care Demand Planning Analyst Name | Role | Phone | + +------+ + | Mary Vazquez PA-C | PCP | | + +------+ + Encounter Details +--------+--------+ + + + | Date | Type | Department | Care Team | Description | +--------+--------+ + + + | 09/13/ | Travel | | | | | 2018 | | | | | +--------+--------+ + [...]
--- OUTSIDE RECORDS SUMMARY | ~2019-10-16 | XMS | Encounter Summary ---
Demographics + + + | Address | [address] | | | [place] [address] | + + + | Home Phone | | + + + | Preferred Language | Unknown | + + + | Marital Status | | + + + | Holiness Affiliation | MET | + + + [...] Team Providers + +------+ + | Care Meat And Poultry Inspector Name | Role | Phone | [...] | MD | | | | | [facility] 4th Floor [address] | | | | | | [address] | | | | | | Mailcode: CH4S | | | | | | [facility] | | | | | | and Healing, | | | | | | Building 1,4th Floor | | | | | | [place], [place] | | | | | | [address] | | | | | | [phone] | | | +--------+ + + + [...]
--- OUTSIDE RECORDS SUMMARY | ~2019-10-16 | XMS | Encounter Summary ---
Demographics + + + | Address | [address] | | | [place] [address] | + + + | Home Phone | | + + + | Preferred Language | Unknown | + + + | Marital Status | | + + + | Scientologist Affiliation | MET | + + + | Race | White | + + + | Ethnic Group | Not or | + + + Author + + + | Author | [facility] | + + + | Organization | [facility] | + + + | [...] Providers + +------+ + | Care Metal Dresser Name | Role | Phone | + [...] | | | | | site, | [place], [place] | | | | | | unspecified | [address] | | | | | | type (HCC) | Phone: | | | | | | Skull defect | [phone] | | | | | | Procedures | Fax: | | | | | | [place] | [phone] | | | | | | STEREOTACTIC [...] | | | | | site, | [place], [place] | | | | | | unspecified | [address] | | | | | | type (HCC) | Phone: | | | | | | Skull defect | [phone] | | | | | | Procedures | Fax: | | | | | | [place] | [phone] | | | | | | STEREOTACTIC [...] | 2019 | Encounter | Services at [facility] | [facility] [address] | | | | | [address] | [place] [address] | | | | | [address] | [place], [place] | | | | | [facility], [address] [place] [address] | [address] | | | | | [place], [place] | [phone] | | | | | [address] | | | | | | [phone] | | | +--------+ + + + [...] [facility] | [address] | [place], [place] | | | RA[facility]L JAY OF CARE | [address] | [address] | | | TESTS | | | [...]
--- OUTSIDE RECORDS SUMMARY | ~2019-10-16 | XMS | Encounter Summary ---
Demographics + + + | Address | [address] | | | [place] [address] | + + + | Home Phone [...] Team Providers + +------+ + | Care Web Graphic Designer Name | Role | Phone | + +------+ + | No Pcp Per Patient | PCP | Unavailable | + +------+ + Reason for Visit + +--------+ + | Reason | Onset | Comments | | | Date | | + +--------+ + | Post-discharge | 12/15/ | Cielo robertson s/p cranial wound washout (dos: 12/05/17) | | follow-up | 2018 | | + +--------+ + Encounter Details +--------+ + + + + | Date | Type | Department | Care Team | Description | +--------+ + + + + | 12/15/ | Telephone | Neurosurgery at | Paramjit Huber MD | Post-discharge | | 2018 | | [facility] [address] | [address] | follow-up (Cielo is | | | | [facility] | [place], [place] | s/p cranial wound | | | | [facility], | [address] | washout (dos: | | | | | [phone] | 12/05/17)) | | | | floor [place], [place] | | | | | | [address] | | | | | | [phone] | | | +--------+ + + + [...] this encounter Miscellaneous Notes Telephone Encounter - Carri Parks LPN - 12/15/2017 8:09 AM PDTSheryl is s/p cranial wound washout (dos: 12/05/17) Next appointment: 12/23/17 Discharge Nurse wellness call to Cielo, who reports she is doing well and has had an uncom plicated post operative experience. she reports her incision is clean and healing without redness or swelling. her pain is currently controlled by oral medication and she is activ e and participating in her routine ADL's. She reports she is tired and tires easily. She left with all her Rx's, understood the purpose of taking them and had no questions mikel rding her post op instructions and feel her questions were answered prior to discharge and h as no questions at this time. We reviewed her upcoming appointment, including date, time and location as well a their tra nsportation needs, medication dosing and our departments 72 (business office) hours refill p olicy, s/s to monitor and when to call the Surgeon. We also addressed BM concerns and FMLA paperwork. We also discussed options to obtain help if needed which include but is not limited to afte r hours/weekend resident call ([phone]), clinic phone & office hours ([phone]) and PCP or subspeciality of non-NSG related concerns. documented in this encounter Plan of Treatment Not on filedocumented as of this encounter Visit Diagnoses Not on filedocumented in this encounter"
--- OUTSIDE RECORDS SUMMARY | ~2019-10-16 | XMS | Encounter Summary ---
Demographics + + + | Address | [address] | | | [place] [address] | + + + | Home Phone | | + + + | Preferred Language | Unknown | + + + | Marital Status | | + + + | Advent Affiliation | MET | + + + | Race | White | + + + | Ethnic Group | Not or | + + + Author + + + | Author | [facility] | + + + | Organization | [facility] | + + + | Address [...] | + + +---------+ + | Eric Avilajohnarden | ECON | Unknown | | + + +---------+ + Care Team Providers + +------+ + | Care Director Of Audiology Name | Role | Phone | + +------+ + | Anil Baker DO | PCP | | + +------+ + Encounter Details +--------+ + + + + | Date | Type | Department | Care Team | Description | +--------+ + + + + | 02/17/ | Telephone-S | Preoperative | Phone, [facility] [address] | | | 2009 | cheduled | Medicine Clinic at | [facility] | | | | | [facility] | [address] [place], [place] | | | | | Stay [address] | [address] | | | | [address] | | | | | | Mailcode: [id number] | | | | | | [facility] | | | | | | [address] [place], [place] | | | | | | [address] | | | | | | [phone] | | | +--------+ + + + [...] this encounter Miscellaneous Notes Telephone Encounter - Nneka Machado - 04/09/2008 9:58 [facility] interview co mpleted 04/09/08. See Centricity. Nneka Machado, ARNP documented in this encounter Plan of Treatment Not on filedocumented as of this encounter Visit Diagnoses Not on filedocumented in this encounter"
--- OUTSIDE RECORDS SUMMARY | ~2019-10-16 | XMS | Encounter Summary ---
Demographics + + + | Address | [address] | | | [place] [address] | + + + | Home Phone | | + + + | Preferred Language | Unknown | + + + | Marital Status | | + + + | Congregation Affiliation | MET | + + + [...] Team Providers + +------+ + | Care Construction Inspector Name | Role | Phone | [...] + + + + | 12/05/ | Anesthesia | 6A Intra Op 3181 | Clive Sarmiento, | | | 2018 | Event | [address] | [address] | | | | | [facility] | [address] | | | | | Hospital Admitting | [place], [place] | | | | | Desk Located on the | [address] | | | | | 9th floor | [phone] | | | | | [facility] [place] | | | | | | [address] | Alex Evangelista | | | | | | PIPE Santos [address] | | | | | | [address] | | | | | | [place], [place] | | | | | | [address] | | | | | | [phone] | | | | | | | | +--------+ + + + + Anesthesia Record + + + + + | Procedure Name | Responsible | Anesthesia Start | Anesthesia Stop Time | | | Anesthesiologist | Time | | + + + + + | explant of | Clive Sarmiento MD | 12/05/172041 | 12/05/172226 | | cranioplasty; wound | | | | | washout (N/A Head) | | | | + + + + + +----+---+ + + | Da | T | Event | Comment | | te | i | | | | | m | | | | | e | | | +----+---+ + + | 10 | 2 | Eq Check | Anesthesia machine checked Equipment verified | | /1 | 0 | | | | 5/ | 0 | | | | 20 | 5 | | | | 18 | | | | +----+---+ + + | | 2 | Pt. Check | Prior to anesthesia start, pt. Identified, examined, chart | | | 0 | | reviewed, PARQ held, anesthetic plan made or approved by | | | 3 | | attending anesthesiologist. NPO status confirmed as appropriate | | | 4 | | for procedure Preoperative evaluation: unchanged | +----+---+ + + | | 2 | Abx held | Per surgeon, hold abx for wound cultures. | | | 0 | Medical or | | | | 3 | Surgical | | | | 4 | Reason | | +----+---+ + + | | 2 | An Start | | | | 0 | | | | | 4 | | | | | 2 | | | +----+---+ + + | | 2 | An Start | | | | 0 | Data | | | | 4 | | | | | 9 | | | +----+---+ + + | | 2 | Vitals | Monitors applied Vital signs checked Patient ready for anesthesia | | | 0 | Checked | | | | 4 | | | | | 9 | | | +----+---+ + + | | 2 | ETT | | | | 0 | | | | | 5 | | | | | 6 | | | +----+---+ + + | | 2 | Ready | | | | 0 | | | | | 5 | | | | | 7 | | | +----+---+ + + | | 2 | Timeout | | | | 1 | | | | | 2 | | | | | 5 | | | +----+---+ + + | | 2 | Incision | | | | 1 | | | | | 2 | | | | | 6 | | | +----+---+ + + | | 2 | Abx | Wound cultures finished, surgeons request vanco & ceftriaxone | | | 1 | Administere | now. | | | 3 | d | | | | 5 | | | +----+---+ + + | | 2 | Surgery end | | | | 2 | | | | | 1 | | | | | 0 | | | +----+---+ + + | | 2 | An Extubate | Neuromuscular function Intact. Pharynx suctioned. Patient obeys | | | 2 | | commands. Adequate pulmonary mechanics. | | | 1 | | | | | 7 | | | +----+---+ + + | | 2 | an stop | | | | 2 | data | | | | 1 | | | | | 9 | | | +----+---+ + + | | 2 | Anesthesia | | | | 2 | End | | | | 2 | | | | | 7 | | | +----+---+ + + +------+ | Meds | +------+ + +---------+ | Name | Total | + +---------+ | fentaNYL | 100 mcg | + +---------+ | HYDROmorphone | 1 mg | + +---------+ | lidocaine 2% | 40 mg | + +---------+ | rocuronium | 40 mg | + +---------+ | propofol | 100 mg | + +---------+ | vancomycin | 1 g | + +---------+ | albuterol inhaler | 6 puff | + +---------+ | ondansetron | 4 mg | + +---------+ | dexamethasone | 4 mg | + +---------+ | cefTRIAXone | 1 g | + +---------+ | PHENYLEPHrine | 400 mcg | + +---------+ | neostigmine | 3 mg | + +---------+ | glycopyrrolate | 0.4 mg | + +---------+ | LR | 700 mL | + +---------+ | D5 | 250 mL | + +---------+ + + | [...] 07/11/181336 by | | | Other (Comment); 07/11/181336 | Tyra Sandoval RN | Patria Vasques RN | +--------+ + + + | Wound | 12/03/17; 2199; Yes; Right; head; | 12/03/172199 by | 12/06/17 0000 by | | | Abscess; 12/06/17; 0000 | Tyra Sandoval RN | Hernandez Martinez RN | +--------+ + + + | Wound | 12/03/17; 2199; Yes; Midline; | 12/03/17 2200 by | 08/11/18 1206 by | | | coccyx; Pressure ulcer (stage | Greg Pittman RN | Vida Rogel RN | | | II); Other (Comment) (ambulate | | | | | drive [facility] [employer]); 08/11/18; | | | | | 1206 | | | +--------+ + + + | Periph | 12/04/17; 1656; VAT; Right; | 12/04/171656 by | 12/06/17 0000 by | | eral | Forearm; 22 g; None; No; | Surya Park RN | Svitlana White RN | | IV | Positive; 12/06/17; (removed by | | | | | alexandro RN this afternoon.) | | | +--------+ + + + | Incisi | 12/05/17; Right; adb- upper | 12/05/17 0000 by | 07/11/18 1355 by | | on | quadrant; 07/11/18; 1355 | Silvia Byrne RN | Patria Vasques RN | +--------+ + + + | ETT | 12/05/17; 2055 (created via | 12/05/172055 by | 12/05/172216 by | | | procedure documentation); | Alex Evangelista, | Alex Evangelista, | | | Endotracheal Tube; 7; Oral; | FERN CUTTER | FERN CUTTER | | | Cuffed; 12/05/17; 2216 | | | +--------+ + + + | Incisi | 12/05/172126; Horacio Hewitt MD; | 12/05/172126 by | 07/11/187 by | | on | Right; head; 07/11/18; 7 | Kobe Chavez RN | Patria Vasques RN | +--------+ + + + documented [...] encounter OR Notes Anesthesia Postprocedure Evaluation - Darron Padron CRNA - 12/07/2017 2:49 PM PDTForma tting of this note might be different from the original. Cielo Bell [id number] Allergies Allergen Reactions [place] Tar Hives Betadine [Povidone-Iodine (With Soap)] Unknown Cipro [Ciprofloxacin] Nausea and Vomiting Codeine Hcl Nausea and Vomiting Sulfa (Sulfonamide Antibiotics) Erythema Past Surgical History Procedure Laterality Date Partial thyroidectomy Right Hysterectomy Cholecystecomy Bladder suspension 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 Prime Broker shunt Tympanoplasty Right 1987 Lumpectomy of left breast 1978 Coronary stent placement 12/28/2014 status post stent placement in the mid LAD Temp: 36.5 C (97.7 F) Heart Rate: 85 Resp: 16 BP: 130/59 SpO2: 92 % Evaluation Patient personally seen and evaluated for recovery from anesthesia care, ROS including Card s, Resp, Neuro, and GI w/o evidence of adverse effects, VS (BP, HR, RR, SpO2, and Temp) and hydration status are stable no PONV Pain controlled No Altered mental status Complications No adverse events nesthesia Procedu re Notes - Alex Evangelista CRNA - 12/05/2017 9:13 PM PDTAssociated Order(s): ANE ETTP rocedure Reason for Intubation: For surgical procedure, Location Performed: OR , Patient was preoxyg enated Mask Ventilation Grade 2 - Ventilated by mask with oral airway/adjuvant Intubation Blade type: Nidhi , Blade size: 3, Atraumatic laryngoscopy: Atraumatic Laryngoscopy, In tubation adjuncts: Stylet used , Laryngoscopic view: Grade I, Fiberoptics used: N/A , Number of Attempts: 1, Positive for EtCO2: Yes, Breath sounds: Bilateral and equal ETT ETT Size: 7 ETT secured with: adhesive tape Depth at Lip: 20 Cm Airway leak: No Narrative Attending physically present Attending: VANESSA WEINBERG Performed by ALEX HARVEY nesthesia Preproced ure Evaluation - Alex Evangelista CRNA - 12/05/2017 8:25 PM PDT Cielo Nurard [id number] Allergies Allergen Reactions [place] Tar Hives Betadine [Povidone-Iodine (With Soap)] Unknown Cipro [Ciprofloxacin] Nausea and Vomiting Codeine Hcl Nausea and Vomiting Sulfa (Sulfonamide Antibiotics) Erythema NPO:NPO Status: since MN Last Vitals: Temp: 36.6 C (97.9 F) Heart Rate: 94 Resp: 16 BP: 134/67 SpO2: 95 % O2 Delivery Device: None (room air) Preg Status/LMP: Patient Active Problem List Diagnosis Chronic obstructive pulmonary disease (HCC) SAH (subarachnoid hemorrhage) (HCC) HTN (hypertension) Chronic pain Otitis media 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 Coronary arteriosclerosis in [place] artery Acute lxa-SH-pegamlloe myocardial infarction (HCC) Continuous tobacco abuse Hyperglycemia Draining postoperative wound Past Surgical History Procedure Laterality Date Partial thyroidectomy Right Hysterectomy Cholecystecomy Bladder suspension 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 Prime Broker shunt Tympanoplasty Right 1987 Lumpectomy of left breast 1978 Coronary stent placement 12/28/2014 status post stent placement in the mid LAD Current Medication List Name Sig Last Dose ACETAMINOPHEN 325 MG TABLET Take 1-2 tablets by mouth every six hours as needed for moderat e pain. ASPIRIN 81 MG TABLET,DELAYED RELEASE Take 1 tablet by mouth once daily. Do not restart aspi rin until 2 weeks after surgery ATORVASTATIN 80 MG TABLET Take 80 mg by mouth once daily at bedtime. CLOPIDOGREL 75 MG TABLET Take 1 tablet by mouth once daily. Do not restart plavix until 2 w eeks after surgery LISINOPRIL 5 MG TABLET Take 5 mg by mouth once daily. METOPROLOL SUCCINATE ER 25 MG TABLET,EXTENDED RELEASE 24 HR Take 25 mg by mouth once daily. METOPROLOL SUCCINATE ER 50 MG TABLET,EXTENDED RELEASE 24 HR Take 50 mg by mouth once daily. NICOTINE 21 MG/24 HR DAILY TRANSDERMAL PATCH Apply 1 patch to skin once daily. ONDANSETRON HCL 4 MG TABLET Take 1 tablet by mouth every twelve hours as needed. OXYCODONE 5 MG TABLET Take 1-3 tablets by mouth every three hours as needed for moderate pa in. PRAVASTATIN 20 MG TABLET Take 20 mg by mouth once daily at bedtime. SENNOSIDES 8.6 MG-DOCUSATE SODIUM 50 MG TABLET Take 2 tablets by mouth twice daily as neede d (take twice daily as long as you are taking narcotic pain medication). SPIRONOLACTONE 25 MG TABLET Take 25 mg by mouth once daily. Lab Results Component Value Date RATE 94 12/04/2017 ATRIALRATE 93 12/04/2017 PA 155 12/04/2017 QRS 100 12/04/2017 QT 352 12/04/2017 QTC 462 04/12/2008 PAXIS 82 12/04/2017 RAXIS -41 12/04/2017 TAXIS 121 12/04/2017 EKGDX 04/12/2008 Normal sinus rhythm Normal ECG "I have personally interpreted this report, either alone or with a trainee." Confirmed by KAREN ROMERO ([id number]) on 12-Apr-2008 15:40:13 Preoperative Adult Anesthesia Plan No anesthesia note exists Anesthesia Plan Comments ASA ASA 3 NPO Status NPO Status: NPO by protocol Monitors/Lines to be used Standard Anesthetic Consideration Induction intravenous induction Anesthetic Technique General; Obstetric Anesthesia Post-Op Pain Plan IV analgesics; Blood Products T and S; Informed Consent PARQ discussed with: patient, Procedures, Alternatives, Risks, and Questions discussed and Risk/benefit of anesthesia plan and blood product discussed Dental Risk discussed with patient Code status in OR Patients Code Status in OR: FULL 12/05 8:37 PM documented in this en counter Miscellaneous Notes Addendum Note - Darron Padron CRNA - 12/07/2017 2:49 PM PDTFormatting of this note niranjan ht be different from the original. Addendum created 12/07/17 1449 by Darron Padron CRNA Sign clinical note ddendum Note - Clive Hidalgo MD - 12/07/2017 7:02 AM PDT Addendum created 12/07/17 0702 by Clive Sarmiento MD Anesthesia Attestations filed [facility] PreOp Note - Alex Evangelista CRNA - 12/05/2017 8:23 PM PDTROS: HPI: Cielo Bell is a 67 y.o. female here for removal of infected crainioplasty and washout. 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 Significa nt PMH for CAD -- pt had an NSTEMI 12/28/15 and had coronary stents placed (bare metal) and s he's on medical mgmt with asa, statin, beta mukul and Plavix. She's been advised that she was to stop Plavix about 2 weeks before surgery. Because of her CAD, she remained on low dos e aspirin, beta mukul and her statin. COPD -- fairly advanced, though pt not using any inh li. She uses supplemental oxygen at night.Prior hx of MRSA (post op infection) post crani otomy. No current symptoms. Ongoing tobacco dependence. No recent cold, flu or fever. No CP or palpitations. Chronic productive cough with no change in consistency prior to surgery. P rior Anesthetic Problems: No Pulmonary: no shortness of breath no cough Pt. Has no asthma COPD severe (O2) No dx of sleep screw cutter ea Cardiovascular: Echo 12/2014: Normal LV size and mild apical hypokinesis with overall preserved systolic function with LV EF 54%.2. Mild aortic insufficiency without significant stenosis.3. Normal pulmonary press ures.4. Grade 1 LV diastolic dysfunction. Functional Capacity: Moderate - cyanosis, palpitations and syncope no CHF hypertension well controlled no pacemaker/ICD GI/Hepatic: no GI Bleed no OTHER GI GERD Control: Well controlled no liver disease no hepatitis Renal: no renal failure no dialysis Endo: no Diabetes: no Hx Corticosteroid Use Neuro/Psych: no pain Current pain score: 0 Musculoskeletal: no arthritis Heme/Onc: Pt. has: no active bleeding No hemoglobin disorders Infectious Disease: MRSA Skin: no open wounds PMC Physical Exam General: Patients general appearance: Alert, Cooperative and Age appropriate Head & Neck/Airway: Normocephalic; atraumatic; PERRL; EOMI; nl appearing ears and nose. Nec k ROM: full TM Distance:> 6cm Dentition: dentures-upper, missing teeth Dental risk discussed with/pt : Yes Cormier: No Mallampati: III Mouth Opening: > = 3 cm Neck Anatomy: Normal Jaw Protrusion: Normal, lower incisors can protrude past upper incisors Lung Exam: No respiratory distress. Normal breathing pattern. breath sounds abnormal + r honchi Respiration Cardiac: No murmurs, gallops or rubs. Rhythm: regular Rate: normal Abdominal: General Findings: no abdominal tenderness and Nondistended Musculoskeletal: Findings: tone normal Neuro/Psych: No focal [...] Color: pink Texture: Skin texture - normal Implants: None, Physical Exam General: Appearance: Age appropriate LOC: Alert Airway: Normocephalic; atraumatic; PERRL; EOMI; nl appearing ears and nose. Neck ROM: full Dentitio n: dentures-upper missing teeth Dental risk discussed with/pt : Yes Mallampati: III TM Dista nce:> 6cm Cormier: No Neck Anatomy: Normal Jaw Protrusion: Normal, lower incisors can protrude past upper incisors Pulmonary: No respiratory distress. Normal breathing pattern. Respiratory: pulmonary exam normal Breath Sounds: rhonchi Cardiovascular: No murmurs, gallops or rubs. Rhythm: regular Rate: normal Skin: No open rashes or lesions noted. documented in this en counter Plan of Treatment Not on filedocumented as of this encounter Procedures + +--------+ + + + | Procedure Name | Priori | Date/Time | Associated Diagnosis | Comments | | | ty | | | | + +--------+ + + + | LENORA BARROW | Routin | 12/05/2017 | | Results for this | | | e | 9:13 PM | | procedure are in the | | | | PDT | | results section. | + +--------+ + + + documented in this encounter Results LENORA BARROW (12/05/2017 9:13 PM PDT) + + + | Narrative | Performed At | + + + | Alex Evangelista CRNA 12/05/2017 9:14 PM Procedure | | | Reason for Intubation: For surgical procedure, Location Performed: OR | | | , Patient was preoxygenated Mask Ventilation Grade 2 - Ventilated | | | by mask with oral airway/adjuvant Intubation Blade type: | | | Nidhi , Blade size: 3, Atraumatic laryngoscopy: Atraumatic | | | Laryngoscopy, Intubation adjuncts: Stylet used , Laryngoscopic view: | | | Grade I, Fiberoptics used: N/A , Number of Attempts: 1, Positive for | | | EtCO2: Yes, Breath sounds: Bilateral and equal ETT ETT | | | Size: 7 ETT secured with: adhesive tape Depth at Lip: 20 Cm | | | Airway leak: No Narrative Attending physically present | | | Attending: VANESSA WEINBERG Performed by PIPE EVANGELISTA, | | | ALEX Santos | | + + + documented in this encounter Visit Diagnoses Not on filedocumented in this encounter Administered Medications + +--------+ +---------+------+------+ | Medication Order | MAR | Action | Dose | Rate | Site | | | Action | Date | | | | + +--------+ +---------+------+------+ | albuterol (PROVENTIL, VENTOLIN) | Given | 12/06/19 | 6 puffs | | | | 90 mcg/actuation inhaler | | 18 9:06 | | | | | INTRAPROCEDURE PRN, Starting Mon | | PM PDT | | | | | 12/05/17 at 2106, Until Mon | | | | | | | 12/05/17 at 2218 | | | | | | + +--------+ +---------+------+------+ +---+---+ | | | +---+---+ + +-------+ +-----+---+---+ | cefTRIAXone (ROCEPHIN) | Given | 12/06/19 | 1 g | | | | injection INTRAPROCEDURE PRN, | | 18 9:41 | | | | | Starting 12/05/17 at 2141, | | PM PDT | | | | | Until 12/05/17 at 2218 | | | | | | + +-------+ +-----+---+---+ +---+---+ | | | +---+---+ + +-------+ +------+---+---+ | dexamethasone (DECADRON) | Given | 12/06/19 | 4 mg | | | | injection intravenous, | | 18 9:29 | | | | | INTRAPROCEDURE PRN, Starting Mon | | PM PDT | | | | | 12/05/17 at 2129, Until Mon | | | | | | | 12/05/17 at 2218 | | | | | | + +-------+ +------+---+---+ +---+---+ | | | +---+---+ + + + +---+---+---+ | dextrose 5 % IV INTRAPROCEDURE | given by | 12/06/19 | | | | | CONTINUOUS PRN, Starting Mon | | 18 9:11 | | | | | 12/05/17 at 2110, Until Mon | anesthes | PM PDT | | | | | 12/05/17 at 2218 | iology | | | | | + + + +---+---+---+ +---------+ +---+---+---+ | New Bag | 12/06/19 | | | | | | 18 9:10 | | | | | | PM PDT | | | | +---------+ +---+---+---+ +---+---+ | | | +---+---+ + +-------+ +--------+---+---+ | fentaNYL (SUBLIMAZE) injection | Given | 12/06/19 | 50 mcg | | | | INTRAPROCEDURE PRN, Starting Mon | | 18 8:53 | | | | | 12/05/17 at 2042, Until Mon | | PM PDT | | | | | 12/05/17 at 2219 | | | | | | + +-------+ +--------+---+---+ +-------+ +--------+---+---+ | Given | 12/06/19 | 50 mcg | | | | | 18 8:42 | | | | | | PM PDT | | | | +-------+ +--------+---+---+ +---+---+ | | | +---+---+ + +-------+ +--------+---+---+ | glycopyrrolate (ROBINUL) | Given | 12/06/19 | 0.4 mg | | | | injection INTRAPROCEDURE PRN, | | 18 10:07 | | | | | Starting Tue12/05/17 at 2207, | | PM PDT | | | | | Until Tue12/05/17 at 9 | | | | | | + +-------+ +--------+---+---+ +---+---+ | | | +---+---+ + +-------+ +------+---+---+ | HYDROmorphone (DILAUDID) | Given | 12/06/19 | 1 mg | | | | injection INTRAPROCEDURE PRN, | | 18 9:27 | | | | | Starting Tue12/05/17 at 2127, | | PM PDT | | | | | Until Tue12/05/17 at 9 | | | | | | + +-------+ +------+---+---+ +---+---+ | | | +---+---+ + + + +---+---+---+ | lactated Ringers IV | given by | 12/06/19 | | | | | INTRAPROCEDURE CONTINUOUS PRN, | | 18 10:25 | | | | | Starting Tue12/05/17 at 2030, | anesthes | PM PDT | | | | | Until Tue12/05/17 at 2219 | iology | | | | | + + + +---+---+---+ +---------+ +---+---+---+ | New Bag | 12/06/19 | | | | | | 18 8:30 | | | | | | PM PDT | | | | +---------+ +---+---+---+ +---+---+ | | | +---+---+ + +-------+ +-------+---+---+ | lidocaine (XYLOCAINE MPF) 2 % | Given | 12/06/19 | 40 mg | | | | (20 mg/mL) injection | | 18 8:54 | | | | | INTRAPROCEDURE PRN, Starting Mon | | PM PDT | | | | | 12/05/17 at 4, Until Mon | | | | | | | 12/05/17 at 2218 | | | | | | + +-------+ +-------+---+---+ +---+---+ | | | +---+---+ + +-------+ +------+---+---+ | neostigmine (PROSTIGMIN) | Given | 12/06/19 | 3 mg | | | | injection intravenous, | | 18 10:07 | | | | | INTRAPROCEDURE PRN, Starting Mon | | PM PDT | | | | | 12/05/17 at 2207, Until Mon | | | | | | | 12/05/17 at 2218 | | | | | | + +-------+ +------+---+---+ +---+---+ | | | +---+---+ + +-------+ +------+---+---+ | ondansetron (ZOFRAN) injection | Given | 12/06/19 | 4 mg | | | | INTRAPROCEDURE PRN, Starting Mon | | 18 9:29 | | | | | 12/05/17 at 2129, Until Mon | | PM PDT | | | | | 12/05/17 at 2218 | | | | | | + +-------+ +------+---+---+ +---+---+ | | | +---+---+ + +-------+ +---------+---+---+ | PHENYLEPHrine 100 mcg/mL IV | Given | 12/06/19 | 100 mcg | | | | syringe INTRAPROCEDURE PRN, | | 18 10:01 | | | | | Starting 12/05/17 at 2139, | | PM PDT | | | | | Until 12/05/17 at 2219 | | | | | | + +-------+ +---------+---+---+ +-------+ +---------+---+---+ | Given | 12/06/19 | 100 mcg | | | | | 18 9:49 | | | | | | PM PDT | | | | +-------+ +---------+---+---+ | Given | 12/06/19 | 100 mcg | | | | | 18 9:45 | | | | | | PM PDT | | | | +-------+ +---------+---+---+ +---+---+ | | | +---+---+ + +-------+ +--------+---+---+ | propofol (DIPRIVAN) injection | Given | 12/06/19 | 100 mg | | | | INTRAPROCEDURE PRN, Starting Mon | | 18 8:54 | | | | | 12/05/17 at 2054, Until Mon | | PM PDT | | | | | 12/05/17 at 2219 | | | | | | + +-------+ +--------+---+---+ +---+---+ | | | +---+---+ + +-------+ +-------+---+---+ | rocuronium (ZEMURON) injection | Given | 12/06/19 | 40 mg | | | | INTRAPROCEDURE PRN, Starting Mon | | 18 8:55 | | | | | 12/05/17 at 2054, Until Mon | | PM PDT | | | | | 12/05/17 at 2219 | | | | | | + +-------+ +-------+---+---+ +---+---+ | | | +---+---+ + +-------+ +-----+---+---+ | vancomycin (VANCOCIN) injection | Given | 12/06/19 | 1 g | | | | INTRAPROCEDURE PRN, Starting | | 18 9:35 | | | | | 12/05/17 at 2135, Until Mon | | PM PDT | | | | | 12/05/17 at 2219 | | | | | | + +-------+ +-----+---+---+ +---+---+ | | | +---+---+ documented in this encounter
--- OUTSIDE RECORDS SUMMARY | ~2019-10-16 | XMS | Clinical Summary ---
Demographics + + + | Address | [address] | | | [place] [address] | + + + | Home Phone | | + + + | Preferred Language | Unknown | + + + | Marital Status | | + + + | Hindu Affiliation | MET | + + + | Race | White | + + + | Ethnic Group | Not or | + + + Author + + + | Author | [facility] | + + + | Organization | [facility] | + + + | Address | Unknown | + + + | Phone | Unavailable | + + + Support + + +---------+ + | Name | Relationship | Address | Phone | + + +---------+ + | Auugsto Bell | ECON | Unknown | | + + +---------+ + | Thaddeus Gerard | ECON | Unknown | | + + +---------+ + | Eric Leung | ECON | Unknown | | + + +---------+ + Care Team Providers + +------+ + | Care Line Controller Name | Role | Phone | + +------+ + | Mary Vazquez PA-C | PCP | | + +------+ + Source Comments MICHELLE is fully live on both EpicCare Ambulatory and EpicCare InPatient.[facility] Allergies + + + + + + | Active Allergy | Reactions | Severity | Noted | Comments | | | | | Date | | + + + + + + | Povidone-Iodine | Rash | Medium | 05/29/19 | | | (With Soap) | | | 15 | | + + + + + + | Ciprofloxacin | Nausea and Vomiting | | 10/18/19 | | | | | | 08 | | + + + + + + | Codeine Hcl | Nausea and Vomiting | | 04/30/19 | | | | | | 09 | | + + + + + + | [place] Tar | Hives | High | 06/07/19 | | | | | | 15 | | + + + + + + | Sulfa (Sulfonamide | Erythema | | 10/18/19 | | | Antibiotics) | | | 08 | | + + + + + [...] mg by mouth | | 0 | 10/ | | Activ | | succinate 50 mg oral | once daily. | | | 20 | | e | | tablet extended | | | | 18 | | | | release 24 hr | | | | | | | + + + +---------+------+------+-------+ | spironolactone 25 | Take 25 mg by mouth | | 0 | 09/2 | | Activ | | mg oral tablet | once daily. | | | 20 | | e | | | | | | 18 | | | + + + +---------+------+------+-------+ | atorvastatin 80 mg | Take 80 mg by mouth | | 0 | | | Activ | | oral tablet | once daily. | | | | | e | + + + +---------+------+------+-------+ | MEDICATION | Indications: | | 0 | | | Activ | | HELPIndications: | occlusive gauze | | | | | e | | occlusive gauze | strips - dressing on | | | | | | | strips - dressing on | head | | | | | | | head | | | | | | | + + + +---------+------+------+-------+ Active Problems + + + | Problem | Noted Date | + + + | HLD (hyperlipidemia) | 09/19/2018 | + + + + + | Overview: Cont home atorvastatin 80 mg daily | + + + + + | Postoperative surgical complication involving skin associated | 09/14/2018 | | with dermatologic procedure, unspecified complication | | + + + | Postoperative anemia due to acute blood loss | 08/05/2018 | + + + + + | Last Assessment & Plan: Given 1u PRBC yesterday for H&H 09/11. | | This morning .06/15.Will recheck CBC in AM unless significant | | oozing / worsening tachycardia throughout the day, then will | | check more frequently | + + + + + | History of cranioplasty | 07/10/2018 | + + + | Wound dehiscence | 07/10/2018 | + + + + + | Last Assessment & Plan: -noted to have small wound dehiscence | | on 07/09/18, no pre-op antibiotics started. Right synthes | | cranioplasty explanted 07/11/18, intra-op cultures grew staph | | epidermidis although on evaluation by infectious disease, it was | | felt this could be a contaminant so no antibiotics were started. | | -admit to NSICU, stable for transfer to [facility]-s/p right | | mesh cranioplasty, bilateral latissimus dorsi free flap, and | | split thickness skin graft from back on 08/03/18 -- | | uncomplicated-post op CTH with expected post surgical changes | | -periop Abx per NSG: continue vanc and ancef perioperatively per | | ID recommendations and until drains are out, 115cc in lateral LAZARA, | | 135cc output in medial LAZARA-Urgent CTH for any neurological | | decline -ICU goals: SBP < 160, normonatremia, euvolemia -Hep gtt | | stroke protocol, mgmt per ENT | + + + + + | History of chronic respiratory failure | 05/26/2018 | + + + + + | Last Assessment & Plan: -reports she uses home oxygen; 4L but | | did not travel here to [facility] with it -stable on 4L NC-RT and CM | | consulted to assist with travel needs in regards to Oxygen> see | | note | + + + + + | Ischemic cardiomyopathy | 05/08/2018 | + + + + + | Overview: TTE on 05/09/2017EF 35-40%Apical 1/3 of LV is | | aneurysmalLV is akinetic with several focal areas of dyskinesis | | RV normal size and functionMild Aortic Regurgitation Last | | Assessment & Plan: -CAD, NSTEMI (12/2014) s/p mid LAD stent | | -holding home ASA 81mg daily perioperatively - Metop XL 50 mg | | daily -continue Atorvastatin 80mg daily -ADAT | |Mild Aortic Regurgitation | | Last Assessment & Plan: -CAD, NSTEMI (12/2014) s/p mid LAD stent | |-holding home ASA 81mg daily perioperatively | |- Metop XL 50 mg daily | |-continue Atorvastatin 80mg daily | |-ADAT | + + + + + | PONV (postoperative nausea and vomiting) | 05/08/2018 | + + + + + | Last Assessment & Plan: -prn Zofran and compazine | | -tolerating PO> Dc MIVF | + + + + + | Acute postoperative pain | 05/08/2018 | + + + + + | Last Assessment & Plan: -POD #1; pt denies pain> dc'd IV | | hydromorphone -Multimodal postop pain regimen -PRN APAP -PRN | | oxycodone | | -PRN oxycodone | + + + + + | Encounter for long-term (current) use of antibiotics | 12/09/2017 | + + + | Cardiomyopathy | 09/07/2016 | + + + | Chronic fatigue | 09/07/2016 | + + + | SOB (shortness of breath) on exertion | 09/07/2016 | + + + | Skull defect | 10/23/2015 | + + + + + | Overview: In September of 2007 she had 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 | | In December of 2014 she was noted to have a right crani screw | | exposed with significant sunken cranial defect but 2/2 to her | | recent NSTEMI, stent placement and DAPT she was deferred for | | surgery. In October of 2015 she had an uncomplicated right | | synthetic cranioplasty. In November of 2017 she was noted right | | sided wound dehiscence and epidural MSSA wound infection for | | which she underwent explant of right frontal VPS and right | | cranioplasty. She was discharged home with a PICC and received IV | | ceftriaxone for 6 weeks. 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 and was treated with | | 6 week course of ceftriaxone | + + + + + | CAD in [place] artery | 03/06/2015 | + + + + + | Last Assessment & Plan: NSTEMI in 2015 s/p mid LAD stent | | previously on ASA- will defer to neurosurgery for restartingLast | | echoMarch 2018EF 35-40%Apical 1/3 of LV is aneurysmalLV is | | akinetic with several focal areas of dyskinesis RV normal size | | and functionMild Aortic Regurgitation -maintian telemetry | |RV normal size and function | |Mild Aortic Regurgitation | |-maintian telemetry | + + + + + | History of non-ST elevation myocardial infarction (NSTEMI) | 12/28/2014 | + + + + + | Overview: Overview: Cath 12/28/14: 100% LAD - stented with | | bare metal due to history of cerebral aneurysm. Normal LM; | | normal LCX; 20-30% RCA. Elevated EDP. Echo.12/28/14. LVEF.54% | | Last Assessment & Plan: -see ischemic cardiomyopathy plan above | | Last Assessment & Plan: -see ischemic cardiomyopathy plan above | + + + + + | H/O cerebral aneurysm repair | 12/28/2014 | + + + | Chronic obstructive pulmonary disease | 10/24/2007 | + + + + + | Overview: ICD10 | | Last Assessment & Plan: -continue home inhalers | | -on 3L O2 at night at baseline - will provide 02 PRN | | -SpO2 goal 88-96% | + + + + + | HTN (hypertension) | 10/24/2007 | + + + + + | Overview: ICD10 | | Last Assessment & Plan: Systolic goal less than 160 | | Cont metoprolol xl 50 mg | + + + + + | GERD (gastroesophageal reflux disease) | 10/24/2007 | + + + + + | Last Assessment & Plan: Cont home dose pepcid 20 mg BID | + + + + + | Chronic pain | 10/24/2007 | + + + | Smoker | | + + + + + | Last Assessment & Plan: 50 pack year smoker. | | Cont nicotine patch | | Educate on benefits of smoking cessation | + + + +---+ | Tobacco dependence | | + +---+ + + | Last Assessment & Plan: -pt reports that she has not smoked | | tobacco in the "last 3 weeks"- smoking cessation education in | | regards to delayed wound healing etc. per Provider and RN at > | | pt verbalized understanding - nicotine replacement therapy | | scheduled and prn | + + Resolved Problems + + + + | Problem | Noted | Resolved | | | Date | Date | + + + + | Acute osteomyelitis of cranium | 12/24/19 | | | | 18 | 9 | + + + + | Osteomyelitis | 12/10/19 | | | | 18 | 9 | + + + + | Draining postoperative wound | 12/04/19 | | | | 18 | 9 | + + + + | Hyperglycemia | 10/23/19 | | | | 16 | 9 | + + + + + + | Overview: -Hg A1C 5.7 (Pre-diabetes) | | | | Last Assessment & Plan: -Goal CBG < 180 | | -Aggressive sliding scale Lispro | + + + + + + | Benign neoplasm of major salivary gland | 06/07/19 | | | | 15 | 9 | + + + + + + | Overview: ICD10 | + + + + + + | Goiter | 06/07/19 | | | | 15 | 9 | + + + + | Communicating hydrocephalus | 03/08/19 | | | | 09 | 9 | + + + + + + | Last Assessment & Plan: -Has R frontal VPS in situ, last | | revised in 2008. -per DARY, no compromise of shunt system during | | the 10/22 cranioplasty surgery. | + + + + + + | SAH (subarachnoid hemorrhage) | 10/24/19 | | | | 08 | 9 | + + + + + + | Last Assessment & Plan: SAH HX- see HPI | | No acute plan | + + + + + + | Otitis media | 10/24/19 | | | | 08 | 9 | + + + + + + | Overview: Keflex preadmit | + + Immunizations + + + + | Name | Administration Dates | Next Due | + + + + | Influenza, high dose | 12/09/2017 | | | seasonal, | | | | preservative-free | | | + + + + Family History + + +------+ + | Medical History | Relation | Name | Comments | + + +------+ + | Cancer | Brother | | lung | + + +------+ + | Cancer | Father | | brain | + + +------+ + | Additional Family | Mother | | dementia | | History | | | | + + +------+ + + +------+ + + | Relation | Name | Status | Comments | + +------+ + + | Brother | | | | + +------+ + + | Father | | | | + +------+ + + | Mother | | | | + +------+ + + Social History + + + [...] | + + + + + | Pneumococcal | | | | | vaccination (1 of 2 | 4 | | | | - PCV13) | | | | + + + + + | Influenza (Flu) | | 12/10/19 | | | vaccination (#1) | 0 | 18, | | | | | 11/25/19 | | | | | 16, | | | | | 12/23/19 | | | | | 14 | | + + + + + Implants + +------+--------+ +--------+--------+--------+ | Implanted | Type | Area | Manufacture | Device | Shelf | Model | | | | | r | | Expira | / | | | | | | Identi | tion | Serial | | | | | | fier | Date | / Lot | + +------+--------+ +--------+--------+--------+ | Peek ImplantImplanted: Qty: 1 | | | [employer] | | | [id number]. | | on 10/23/2015 by Cecile, | | | | | | 550 / | | MD Paramjit at [facility] | | | | | | /[id number] | | REV LOC | | | | | | 16 | + +------+--------+ +--------+--------+--------+ | Cover Emmanuel Hole .5mm 17mm | | Right: | [employer] | | | 421.52 | | Craniomaxillofacial Titanium | | Head | | | | 7 / / | | Low Profile Nonsterile - | | | | | | | | [id number]: Qty: 2 on | | | | | | | | 10/23/2015 by Paramjit Huber | | | | | | | | at [facility] INPATIENT REV LOC | | | | | | | + +------+--------+ +--------+--------+--------+ | Screw Bone 4mm 1.55mm 2.55mm | | Right: | [employer] | | | 04.503 | | Matrixneuro | | Head | | | | .104.0 | | Craniomaxillofacial Titanium | | | | | | 1 / / | | Self Drill Nonsterile - | | | | | | | | [id number]: Qty: 2 on | | | | | | | | 10/23/2015 by Paramjit Huber, | | | | | | | | at [facility] INPATIENT REV LOC | | | | | | | + +------+--------+ +--------+--------+--------+ | Plate Bone 18mmx.5mm 2y Low | | Right: | [facility] | | | 421.51 | | Profile Craniomaxillofacial | | Head | | | | 6 / / | | Titanium 6 Hole Nonsterile - | | | | | | | | [id number]: Qty: 1 on | | | | | | | | 10/23/2015 by Paramjit Huber, | | | | | | | | at [facility] INPATIENT REV LOC | | | | | | | + +------+--------+ +--------+--------+--------+ | Peek Psi ImplantImplanted: | | Right: | [facility] | | | [id number]. | | Qty: 1 on 05/08/2018 by | | Head | | | | 420 / | | Paramjit Huber MD at [facility] | | | | | | /[id number] | | INPATIENT REV LOC | | | | | | 06 | + +------+--------+ +--------+--------+--------+ | Cement Bone Cranios 5ml | | Right: | [employer] | | 09/17/ | 615.05 | | Reinforced Fast Set Putty | | Head | | | 2020 | .01S / | | Sterile - [id number]: | | | | | | | | Qty: 1 on 05/08/2018 by | | | | | | /[id number] | | Paramjit Huber MD at [facility] | | | | | | [id number] | | INPATIENT REV LOC | | | | | | | + +------+--------+ +--------+--------+--------+ | Screw Bone 4mm 1.55mm 2.55mm | | Right: | [employer] | | | 04.503 | | Matrixneuro | | Head | | | | .104.0 | | Craniomaxillofacial Titanium | | | | | | 5 / / | | Self Drill Nonsterile - | | | | | | | | [id number]: Qty: 4 on | | | | | | | | 05/08/2018 by Paramjit Huber, | | | | | | | | at [facility] INPATIENT REV LOC | | | | | | | + +------+--------+ +--------+--------+--------+ | Plate Bone 12mmx.5mm Straight | | Right: | [employer] | | | 421.50 | | Craniomaxillofacial Titanium | | Head | | | | 2 / / | | 2 Hole [place] Space Low | | | | | | | | Profile - [id number]: | | | | | | | | Qty: 3 on 05/08/2018 by | | | | | | | | Paramjit Huber MD at [facility] | | | | | | | | INPATIENT REV LOC | | | | | | | + +------+--------+ +--------+--------+--------+ | Ti Matrix Neuro Preformed | | Right: | [employer] | | 04/20/ | 04.503 | | Mesh 151mm X 125mm | | Head | MAXILLOFACI | | 2027 | .156S | | Ftp/RightImplanted: Qty: 1 on | | | [place] | | | / | | 08/03/2018 by Casey Hewitt, | | | | | | /[id number] | | MD at [facility] INPATIENT REV LOC | | | | | | 02 | + +------+--------+ +--------+--------+--------+ | Screw Bone 4mm 1.55mm 2.55mm | | Right: | [employer] | | | 04.503 | | Matrixneuro | | Head | | | | .104.0 | | Craniomaxillofacial Titanium | | | | | | 5 / / | | Self Drill Nonsterile - | | | | | | | | [id number]: Qty: 9 on | | | | | | | | 08/03/2018 by Casey Hewitt, | | | | | | | | at [facility] INPATIENT REV LOC | | | | | | | + +------+--------+ +--------+--------+--------+ | Probe Doppler 17.4cm Flow | | Head | COOK | | 04/20/ | [id number] | | Safe Implantable | | | MEDICAL | | 2021 | / | | Microvascular Anastomoses | | | | | | /[id number] | | Cuff 20mhz Standard Sterile - | | | | | | 82 | | [id number]: Qty: 1 | | | | | | | | on 08/03/2018 by Ata White | | | | | | | | at [facility] INPATIENT REV LOC | | | | | | | + +------+--------+ +--------+--------+--------+ | Dressing Biological [id number] | | Right: | [employer] | | 05/21/ | [id number] | | 4x10in Bovine Collagen | | Head | LIFESCIENCE | | 2020 | 1 / | | Glycosaminoglycan | | | S | | | /[id number] | | Polysiloxane Adherent Bilayer | | | | | | 47 | | Matrix - [id number]: | | | | | | | | Qty: 1 on 09/19/2018 by Christopher | | | | | | | | MD Ata at [facility] INPATIENT | | | | | | | | REV LOC | | | | | | | + +------+--------+ +--------+--------+--------+ + +------+--------+ +--------+--------+--------+ | Explanted | Type | Area | Manufacture | Device | Shelf | Model | | | | | r | | Expira | / | | | | | | Identi | tion | Serial | | | | | | fier | Date | / Lot | + +------+--------+ +--------+--------+--------+ | Screw Bone 4mm 1.55mm 2.55mm | | Right: | [employer] | | | 04.503 | | Matrixneuro | | Head | | | | .104.0 | | Craniomaxillofacial Titanium | | | | | | 5 / / | | Self Drill Nonsterile - | | | | | | | | [id number]: Qty: 1 on | | | | | | | | 05/08/2018 by Paramjit Huber, | | | | | | | | at [facility] INPATIENT REV LOC | | | | | | | + +------+--------+ +--------+--------+--------+ | Screw Bone 4mm 1.55mm 2.55mm | | Right: | [employer] | | | 04.503 | | Matrixneuro | | Head | | | | .104.0 | | Craniomaxillofacial Titanium | | | | | | 5 / / | | Self Drill Nonsterile - | | | | | | | | [id number]: Marcelina, | | | | | | | | MD Casey (Quantity not on | | | | | | | | file)Explanted: Qty: 1 on | | | | | | | | 08/03/2018 by Casey Hewitt, | | | | | | | | at [facility] INPATIENT REV LOC | | | | | | | + +------+--------+ +--------+--------+--------+ Results Not on filefrom Last 3 Months Insurance + +--------+ +--------+ + +--------+ | Payer | Benefi | Subscriber | Effect | Phone | Address | Type | | | t Plan | ID | chon | | | | | | / | | Dates | | | | | | Group | | | | | | + +--------+ +--------+ + +--------+ | MEDICARE | MEDICA | [id number] | | [phone] | [address] | Med[address] | | | RE A & | | [phone] | [address] | | | B | | esent | | [place], [place] | | | | | | | | [address] | | + +--------+ +--------+ + +--------+ | [employer] [place] | MUTUAL | [id number] | | [phone] | Indemn | | MEDICARE SUPPL | OF | | 018-Pr | 0 | [employer] | ity | | | [place] | | esent | | [place] [address] | | | | MEDICA | | | | [place], [place] | | | | RE | | | | [phone] | | | | SUPPL | | | | | | + +--------+ +--------+ + +--------+ + +--------+ +--------+ + + | Guarantor Name | Accoun | Relation to | Date | Phone | Billing Address | | | t Type | Patient | of | | | | | | | | | | + +--------+ +--------+ + + | Cielo Bell | Person | Self [birth year] | [address] | | [place] | al/Fam | | 1950 | [phone] | [place] [address] | | | surjit | | | 3 (Home) | | + +--------+ +--------+ + + Advance Directives + + + + + | Code Status | Date | Date | Comments | | | Activated | Inactivated | | + + + + + | Full Code | 10/25/2018 | 10/25/2018 | | | | 2:22 PM | 9:33 PM | | + + + + + + + + +---+ | | | | | + + + +---+ | Full Code | 09/14/2018 | 09/22/2018 | | | | 1:06 AM | 5:42 PM | | + + + +---+ + + + +---+ | | | | | + + + +---+ | Full Code | 08/03/2018 | 08/11/2018 | | | | 9:56 AM | 6:17 PM | | + + + +---+ + + + +---+ | | | | | + + + +---+ | Full Code | 07/10/2018 | 07/14/2018 | | | | 12:21 PM | 12:38 AM | | + + + +---+ + + + +---+ | | | | | + + + +---+ | Full Code | 05/15/2018 | 05/18/2018 | | | | 1:14 AM | 1:46 AM | | + + + +---+
--- OUTSIDE RECORDS SUMMARY | ~2019-10-16 | XMS | Encounter Summary ---
Demographics + + + | Address | [address] | | | [place] [address] | + + + | Home Phone | | + + + | Preferred Language | Unknown | + + + | Marital Status | | + + + | Presybeterian Affiliation | MET | + + + | Race | White | + + + | Ethnic Group | Not or | + + + Author + + + | Author | [facility] | + + + | Organization | [facility] | + + + | [...] Team Providers + +------+ + | Care Phone Representative Name | Role | Phone | + [...] | | | | | | Rd [facility] | | | | | | Hospital Admitting | | | | | | Desk Located on the | | | | | | 9th floor | | | | | | [place], [place] | | | | | | [address] | | | +--------+ + + + [...]
--- OUTSIDE RECORDS SUMMARY | ~2019-10-16 | XMS | Encounter Summary ---
Demographics + + + | Address | [address] | | | [place] [address] | + + + | Home Phone | | + + + | Preferred Language | Unknown | + + + | Marital Status | | + + + | Cheondoism Affiliation | MET | + + + | Race | White | + + + | Ethnic Group | Not or | + + + Author + + + | Author | [facility] | + + + | Organization | [facility] | + + + | Address [...] Team Providers + +------+ + | Care Converter Supervisor Name | Role | Phone | + +------+ + | Mary Vazquez PA-C | PCP | | + +------+ + Encounter Details +--------+ + + + + | Date | Type | Department | Care Team | Description | +--------+ + + + + | 09/12/ | Telephone | Otolaryngology | Lucia Silvia | | | 2019 | | Adult General | MD Parvez [address] | | | | | Services at [facility] | [facility] | | | | | [address] | [place], [place] | | | | | [facility] | [address] | | | | | and Healing, | [phone] | | | | | [address] | | | | | | [place], [place] | | | | | | [address] | | | | | | [phone] | | | +--------+ + + + [...] encounter Miscellaneous Notes Telephone Encounter - Silvia Myers MD - 09/12/2018 6:18 PM PDTGilberto's son called with concerns regarding Cielo's wound and new left sided facial droop. For the wound aspect, he has noticed that the skin graft has been peeling off of the underl yesica muscle flap and is concerned that there is a foul smell coming from the wound. Home he alth continues to help with dressing changes during the week and he changes the dressing hamzah ry other day. Home health has not raised any concerns, though he is skeptical that Cielo louise as pointed out these findings to them to ask if it is normal or not. She has not had any fe vers, chills, or active drainage from the wound. He first noticed the left sided facial droop earlier today. He has photos from a couple we eks ago where this was not present. He appropriately brought her to their local ED in [place], [place] for evaluation, which is where they were when we spoke on the phone. She is being evaluated for a possible stroke as well as for a wound infection. I reassured him that he i s doing the right thing and that I would recommend evaluation in the ED for the concerns her raised during our conversation. I advised him to call Dr. White's office during business [facility] once Cielo has been appropriately treated for her acute concerns [facility] are currently scheduled to be seen 10/02, however I think she should be evaluate d sooner given his description of her wound today. He expressed understanding and all quest ions were answered. He will call back if any additional concerns arise.Electronically shayy d by Silvia Myers MD at 09/12/2018 6:25 PM PDTdocumented in this encounter Plan of Treatment Not on filedocumented as of this encounter Visit Diagnoses Not on filedocumented in this encounter"
--- OUTSIDE RECORDS SUMMARY | ~2019-10-16 | XMS | Encounter Summary ---
Demographics + + + | Address | [address] | | | [place] [address] | + + + | Home Phone [...] Providers + +------+ + | Care Senior Telecommunications Technician Name | Role | Phone | + +------+ + | No Pcp Per Patient | PCP | Unavailable | + +------+ + Encounter Details +--------+ + + + + | Date | Type | Department | Care Team | Description | +--------+ + + + + | 12/23/ | Documentati | Infectious | Saskia Nicolas MD | | | 2018 | on | Diseases at [facility] | [address] | | | | | [address] | [address] | | | | | Loop Physician's | [place], [place] | | | | | [place], [facility] floor | [address] | | | | | [place], [place] | [phone] | | | | | [address] | | | | | | [phone] | | | +--------+ + + + [...]
--- OUTSIDE RECORDS SUMMARY | ~2019-10-16 | XMS | Encounter Summary ---
Demographics + + + | Address | [address] | | | [place] [address] | + + + | Home Phone [...] Team Providers + +------+ + | Care Powder Blender And Pourer Name | Role | Phone | + [...] Head and Neck | MD [address] [facility] | | | | | Surgery Services at | [facility] | | | | | [facility] [address] | [place], [place] | | | | | [address] | [address] | | | | | Physician's | [phone] | | | | | [address], 2nd floor | | | | | | [place], [place] | | | | | | [address] | | | | | | [phone] | | | +--------+ + + + [...]
--- OUTSIDE RECORDS SUMMARY | ~2019-10-16 | XMS | Encounter Summary ---
Demographics + + + | Address | [address] | | | [place] [address] | + + + | Home Phone | | + + + | Preferred Language | Unknown | + + + | Marital Status | | + + + | Baptist Affiliation | MET | + + + [...] + + + + | 02/24/ | Anesthesia | Preoperative | Sean Garcias MA | | | 2019 | Event | Medicine Clinic at | [address] | | | | | MPV Day | [address] | | | | | Stay [address] | [facility] [place] | | | | | [address] | [address] | | | | | Mailcode: [id number] | | | | | | [facility] | | | | | | [address] [place], [place] | | | | | | [address] | | | | | | [phone] | | | +--------+ + + + [...] documented as of this encounter Miscellaneous Notes [facility] PreOp Note - Mable Lee MD - 02/24/2018 3:37 PM PSTROS: HPI: Prior Anesthetic Problems: No Pulmonary: shortness of breath with exertion cough chronic no stridor no wheezing no Recent Respir atory Infection Pt. Has no asthma COPD severe [...] Spine Conditions No Neuromuscular Conditions no Psych Disorde r Musculoskeletal: no arthritis No Muscular Disorders Heme/Onc: Pt. 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) no VRE Skin: no open wounds no skin conditions AutoImmune Disorders: No autoimmune disorders Physical Exam General: Appearance: Healthy, Age appropriate and No distress LOC: Alert HEENT: Normocephalic/Atraumatic, Normal sclerae/conjunctivae, PERRL, EOMI and No thyromegaly Airway: Dentition: dentures-upper missing teeth Mallampati: 4 Mouth Opening: > 3 cm TM Distance:> 6 cm C-Spine ROM: Normal Neck Anatomy: Normal Jaw Protrusion: Normal (lower incisors go above upper incisors) Pulmonary: Respiratory: pulmonary exam normal Breath Sounds: rhonchi, wheezes Cardiovascular: Rhythm: Regular Rate: Normal Cardiovascular comments: No M/G/R; no pedal edema Abdomen: General: Normal Body Habitus: normal Musculoskeletal: Range of Motion: Normal range of motion Musculoskeletal Comments: No obvious deformities n oted. Neuro/Psych: Affect: Normal Cognitive Status: Normal Speech: Normal speech Strength: Normal Muscle Tone: Normal Movement: Normal Gait Station: Normal Cranial Nerves: Normal Sensation: Normal to light touch Comments: No obvious neurologic deficits noted Skin: Color: skin color normal Texture: Normal Turgor: turgor normal Temperature: Warm Other Implanted Devices: Implanted devices: None documented in this e ncounter Plan of Treatment Not on filedocumented as of this encounter Visit Diagnoses Not on filedocumented in this encounter"
--- OUTSIDE RECORDS SUMMARY | ~2019-10-16 | XMS | Encounter Summary ---
Demographics + + + | Address | [address] | | | [place] [address] | + + + | Home Phone | | + + + | Preferred Language | Unknown | + + + | Marital Status | | + + + | Zoroastrianism Affiliation | Unknown | + + + [...] Team Providers + +------+ + | Care Auto Design Detailer Name | Role | Phone | + [...] | RN | | | | | [place], | | | | | | [place] [address] | | | | | | [phone] | | | +--------+ + + + [...]
--- OUTSIDE RECORDS SUMMARY | ~2019-10-16 | XMS | Encounter Summary ---
Demographics + + + | Address | [address] | | | [place] [address] | + + + | Home Phone | | + + + | Preferred Language | Unknown | + + + | Marital Status | | + + + | Faith Affiliation | MET | + + + [...] Team Providers + +------+ + | Care Integrated Logistics Support Manager Name | Role | Phone | + +------+ + | Mary Vazquez PA-C | PCP | | + +------+ + Encounter Details +--------+ + + + + | Date | Type | Department | Care Team | Description | +--------+ + + + + | 05/14/ | Procedure | Diagnostic Imaging | | | | 2018 | Pass | Services at [facility] [[email or web address] | | | | | | [address] | | | | | | [place] | | | | | | [facility] | | | | | | [place], [place] | | | | | | [address] | | | | | | [phone] | | | +--------+ + + + [...]
--- OUTSIDE RECORDS SUMMARY | ~2019-10-16 | XMS | Encounter Summary ---
Demographics + + + | Address | [address] | | | [place] [address] | + + + | Home Phone | | + + + | Preferred Language | Unknown | + + + | Marital Status | | + + + | Confucianist Affiliation | Unknown | + + + | Race | White | + + + | Ethnic Group | Not or | + + + Author + + + | Author | [facility] | | | and [place] | + + + | Organization | [facility] | | | and [...] Team Providers + +------+ + | Care Kitchen Aide Name | Role | Phone | + +------+ + | Lance Pandya DO | PCP | | + +------+ + Reason for Visit +--------+--------+ + | Reason | Onset | Comments | | | Date | | +--------+--------+ + | Other | 01/28/ | | | | 2014 | | +--------+--------+ + Encounter Details +--------+ + + + + | Date | Type | Department | Care Team | Description | +--------+ + + + + | 01/28/ | Telephone | [facility] | Chana Luu, | Noe | | 2014 | | CARDIOLOGY [address] | MD [address] | | | | | [place], | [place] | | | | | [place] [address] | [address] | | | | | [phone] | | | +--------+ + + + [...] Notes Telephone Encounter - Ashley Berry - 01/28/2015 4:11 PM PSTElvert from [facility] called and yasmin ayala to get Clearance for patient to have hardware removal surgery. I Discussed this with ALEKSANDAR Adkins and she stated that patient needs to be seen by Dr.Abraham ni for [facility] before patient can be cleared Relayed message to [facility] and he verbalized understanding documented in this encounter Plan of Treatment Not on filedocumented as of this encounter Visit Diagnoses Not on filedocumented in this encounter"
--- OUTSIDE RECORDS SUMMARY | ~2019-10-16 | XMS | Encounter Summary ---
Demographics + + + | Address | [address] | | | [place] [address] | + + + | Home Phone [...] Team Providers + +------+ + | Care Grade Recorder Name | Role | Phone | + +------+ + | Remington Camacho MD | PCP | | + +------+ + Encounter Details +--------+ + + + + | Date | Type | Department | Care Team | Description | +--------+ + + + + | 04/16/ | Documentati | Preoperative | Jaden, | | | 2015 | on | Medicine Clinic at | [facility] | | | | | [address] | [address] | | | | | Stay [address] | [address] [facility] [place] | | | | | [address] | [address] | | | | | Mailcode: [id number] | | | | | | [facility] | | | | | | [address] [place], [place] | | | | | | [address] | | | | | | [phone] | | | +--------+ + + + [...]
--- OUTSIDE RECORDS SUMMARY | ~2019-10-16 | XMS | Encounter Summary ---
Demographics + + + | Address | [address] | | | [place] [address] | + + + | Home Phone [...] Team Providers + +------+ + | Care Various Exceptionalities Teacher Name | Role | Phone | [...] | | | | Loop Physician's | [place], [place] | | | | | [place], [facility] floor | [address] | | | | | [place], [place] | [phone] | | | | | [address] | | | | | | [phone] | | | +--------+ + + + [...]
--- OUTSIDE RECORDS SUMMARY | ~2019-10-16 | XMS | Encounter Summary ---
Demographics + + + | Address | [address] | | | [place] [address] | + + + | Home Phone | | + + + | Preferred Language | Unknown | + + + | Marital Status | | + + + | Advent Affiliation | Unknown | + + + | Race | White | + + + | Ethnic Group | Not or | + + + Author + + + | Author | [facility] | | | and [place] | + + + | Organization | [facility] | | [...] Team Providers + +------+ + | Care Maintenance Fitter Name | Role | Phone | + [...] | [address] | [address] | | | | | Procedures | [address] [place] | [place], | | | | | [place] Nuclear | [place], [place] | [place] | | | | | Stress Test | [address] | [address] | | | | | (Vasodilator | Phone: | Phone: | | | | | ) CHG | [phone] | [phone] | | | | | MYOCARDIAL | Fax: | Fax: | | | | | SPECT | [phone] | [phone] | | | | | MULTIPLE | | | | | | | STUDIES [place] | | | | | | | CV STRS TST | | | | | | | XERS&/OR RX | | | | | | | CONT ECG W/O | | | | | | | I&R [place] | | | | | | | [...] | [address] | [address] | | | | | Procedures | ST [place] | [place], | | | | | [place] Nuclear | [place] | [place] | | | | | Stress Test | [address] | [address] | | | | | (Vasodilator | Phone: | Phone: | | | | | ) CHG | [phone] | [phone] | | | | | MYOCARDIAL | Fax: | Fax: | | | | | SPECT | [phone] | [phone] | | | | | MULTIPLE | | | | | | | STUDIES [place] | | | | | | | CV STRS TST | | | | | | | XERS&/OR RX | | | | | | | CONT ECG W/O | | | | | | | I&R [place] | | | | | | | [...] + + | 08/06/ | Hospital | [facility] | Chana Luu, | Precordial pain | | 2017 | Encounter | MED CTR NUCLEAR | MD [address] | | | | | MEDICINE [address] | [place] | | | | | [place], | [address] | | | | | [place] [address] | | | | | | [phone] | [employer] | | +--------+ + + + + [...] by: | | | Lynsey Subramanian MD [facility] 08/06/2016, 12:18 | | + + + + + ----+ | Narrative | Performed At | + + ----+ | | [facility] | | NUCLEAR MEDICINE STRESS TEST REPORT Patient Name: Cielo Larson | [facility] | | Ray Study Date: 08/06/2016 Primary Care Provider: Lance Boyle [facility] | | Mumtaz : 1950 Age: [...] mmHg. EKG baseline underlying sinus rhythm, anteroseptal CT, | | | age indeterminant. Peak unchanged. [...] [address] | [place] | [phone] | | [facility] | | [address] | | | - IMAGING | | [...]
--- OUTSIDE RECORDS SUMMARY | ~2019-10-16 | XMS | Encounter Summary ---
Demographics + + + | Address | [address] | | | [place] [address] | + + + | Home Phone | | + + + | Preferred Language | Unknown | + + + | Marital Status | | + + + | Adventist Affiliation | MET | + + + | Race | White | + + + | Ethnic Group | Not or | + + + Author + + + | Author | [facility] | + + + | Organization | [facility] | + + + | Address [...] Team Providers + +------+ + | Care Message And Delivery Service Pricer Name | Role | Phone | + [...] Pharmacy | | | | | | [address] | | | | | | Loop [place], [place] | | | | | | [address] | | | | | | [phone] | | | +--------+ + + + [...]
--- OUTSIDE RECORDS SUMMARY | ~2019-10-16 | XMS | Encounter Summary ---
Demographics + + + | Address | [address] | | | [place] [address] | + + + | Home Phone | | + + + | Preferred Language | Unknown | + + + | Marital Status | | + + + | Voodoo Affiliation | Unknown | + + + | Race | White | + + + | Ethnic Group | Not or | + + + Author + + + | Author | [facility] | | | and [place] | + + + | Organization | [facility] | | | [...] Team Providers + +------+ + | Care Rug Receiving Clerk Name | Role | Phone | + +------+ + | Lance Pandya DO | PCP | | + +------+ + Encounter Details +--------+ + + + + | Date | Type | Department | Care Team | Description | +--------+ + + + + | 06/16/ | Orders Only | [facility] | [facility] | Bilateral shoulder | | 2016 | | MED CTR LABORATORY | I, Ict Systems Test Engineer | pain, unspecified | | | | [address] [place] | | chronicity; Fatigue, | | | | [place], [place] | | unspecified type | | | | [address] | | | | | | [phone] | | | +--------+ + + + [...] + +--------+ + + + | CBC NO DIFFERENTIAL | Routin | 06/17/2015 | Bilateral shoulder | Results for this | | | e | 11:11 AM | pain, unspecified | procedure are in the | | | | PDT | chronicity Fatigue, | results section. | | | | | unspecified type | | + +--------+ + + + | CK TOTAL | Routin | 06/17/2015 | Bilateral shoulder | Results for this | | | e | 11:11 AM | pain, unspecified | procedure are in the | | | | PDT | chronicity Fatigue, | results section. | | | | | unspecified type | | + +--------+ + + + | BASIC METABOLIC | Routin | 06/17/2015 | Bilateral shoulder | Results for this | | PANEL | e | 11:11 AM | pain, unspecified | procedure are in the | | | | PDT | chronicity Fatigue, | results section. | | | | | unspecified type | | + +--------+ + + + documented in this encounter Results CBC no Differential (06/17/2015 11:11 AM PDT) + + + + + + | Component | Value | Ref Range | Performed | Pathologist | | | | | At | Signature | + + + + + + | White Blood | 9.2 | 4.0 - 11.0 K/uL | [facility] | | | Cells | | | [facility] | | | | | | MEDICAL | | | | | | CENTER - | | | | | | LABORATORY | | + + + + + + | Red Blood | 5.06 | 3.70 - 5.20 | [facility] | | | Cells | | M/uL | [facility] | | | | | | MEDICAL | | | | | | CENTER - | | | | | | LABORATORY | | + + + + + + | Hemoglobin | 15.9 | 11.5 - 16.0 | [facility] | | | | | g/dL | [facility] | | | | [...] | | | | g/dL | [facility] | | | | | | MEDICAL | | | | | | CENTER - | | | | | | LABORATORY | | + + + + + + | RDW-CV | 14.3 | <15.0 % | [facility] | | | | | | [facility] | | | | | | MEDICAL | | | | | | CENTER - | | | | | | LABORATORY | | + + + + + + | Platelet | 250 | 140 - 440 K/uL | [facility] | | | Count | | | [facility] | | [...] | + + + + + | [facility] | [address] | [place] | [phone] | | [facility] | | [address] | | | - LABORATORY | | | | + + + + + CK Total (06/17/2015 11:11 AM PDT) + +-------+ + + + | Component | Value | Ref Range | Performed | Pathologist | | | | | At | Signature | + +-------+ + + + | CK TOTAL | 74 | 22 - 269 U/L | [facility] | | | | | | ST. [...] + | [facility] | [address] | [place] | [phone] | | [facility] | | [address] | | | - LABORATORY | | [...] 10 | 7 - 18 mg/dL | [facility] | | | | | | [facility] | | | | | | MEDICAL | | | | | | CENTER - | | | | | | LABORATORY | | + + + + + + | Creatinine | 0.85 | 0.60 - 1.30 | [facility] | | | | | mg/dL | [facility] | | | | | | MEDICAL | | | | | | CENTER - | | | | | | LABORATORY | | + + + + + + | eGFR, | >60Comment: GLOMERULAR | >=60 | [facility] | | | non- | FILTRATION | mL/min/1.73m2 | [facility] | | | [place] | RATE,ESTIMATED | | MEDICAL | | | | mL/min/1.73f7Ejwn than | | CENTER - | | [...] + + + + + | [facility] | [address] | [place] | [phone] | | [facility] | | [address] | | | - LABORATORY | | | | + + + + + documented in this encounter Visit Diagnoses + + | Diagnosis | + + | Bilateral shoulder pain, unspecified chronicity | + + | Fatigue, unspecified type | + + documented in this encounter"
--- OUTSIDE RECORDS SUMMARY | ~2019-10-16 | XMS | Encounter Summary ---
Demographics + + + | Address | [address] | | | [place] [address] | + + + | Home Phone [...] Team Providers + +------+ + | Care Supervisor Mirror Fabrication Name | Role | Phone | + +------+ + | Anil Baker DO | PCP | | + +------+ + Encounter Details +--------+ + + + + | Date | Type | Department | Care Team | Description | +--------+ + + + + | 10/18/ | Results | LAB REFERRED TESTS | Other, Faculty | | | 2007 | Only | [address] [facility] | [phone] | | | | | [address] | | | | | | [place], [place] | | | | | | [address] | | | +--------+ + + + [...] DEPT OF | [address] | [place], [place] | | | CARDIOLOGY | [address] | [address] | | + + + + + | [facility] DEPT OF | [address] | [place], [place] | | | CARDIOLOGY | [address] | [address] | | + + + + + documented in this encounter Visit Diagnoses Not on filedocumented in this encounter"
--- OUTSIDE RECORDS SUMMARY | ~2019-10-16 | XMS | Encounter Summary ---
Demographics + + + | Address | [address] | | | [place] [address] | + + + | Home Phone [...] Team Providers + +------+ + | Care Gin Pole Operator Name | Role | Phone | + +------+ + | Remington Camacho MD | PCP | | + +------+ + Reason for Referral PROC - Inpatient Surgery (Routine) +--------+--------+ + + + + | Status | Reason | Specialty | Diagnoses / | Referred By | Referred To | | | | | Procedures | Contact | Contact | +--------+--------+ + + + + | Closed | | Neurological | Diagnoses | Jed, | Cecile, | | | | Surgery | Acquired | Antoinette Gomez, | MD Paramjit | | | | | skull defect | ,PhD [address] | [address] | | | | | Procedures | [address] | Ave | | | | | REQUEST TO | [facility] | [place], [place] | | | | | SURGERY | Rd | [address] | | | | | [employer] | [place], [place] | Phone: | | | | | | [address] | [phone] | | | | | | Phone: | Fax: | | | | | | [phone] | [phone] | | | | | | Fax: | | | | | | | [phone] | | +--------+--------+ + + + + Diagnostic Testing (Routine) +--------+--------+ + + + + | Status | Reason | Specialty | Diagnoses / | Referred By | Referred To | | | | | Procedures | Contact | Contact | +--------+--------+ + + + + | Closed | | Radiology | Diagnoses | Jed, | | | | | | Acquired | Antoinette Gomez | | | | | | skull defect | ,PhD [address] | | | | | | Procedures | [address] | | | | | | CT HEAD WO | [address] | | | | | | CONTRAST | Rd | | | | | | | [place], [place] | | | | | | | [address] | | | | | | | Phone: | | | | | | | [phone] | | | | | | | Fax: | | | | | | | [phone] | | +--------+--------+ + + + + Reason for Visit + + + | Reason | Comments | + + + | Return Patient | Discuss surgery | + + + Encounter Details +--------+---------+ + + + | Date | Type | Department | Care Team | Description | +--------+---------+ + + + | 10/02/ | Office | Neurosurgery at | Paramjit Huber MD | Acquired skull | | 2016 | Visit | [facility] [address] | [address] | defect (Primary Dx) | | | | [facility] | [place], [place] | | | | | [facility], | [address] | | | | | Building [address] | [phone] | | | | | floor [place], [place] | | | | | | [address] | | | | | | [phone] | | | +--------+---------+ + + + [...] + + + + | Weight | 51.8 kg (114 lb 4.8 | 10/03/2015 12:50 PM | | | | oz) | PDT | | + + + + + | Height | 149.9 cm (4' 11") | 10/03/2015 12:50 PM | | | | | PDT | | + + + + + | Body Mass Index | 23.09 | 10/03/2015 12:50 PM | | | | | PDT | | + + + + + documented in this encounter Progress Notes Antoinette Adkins MD,PhD - 10/03/2015 12:53 PM PDT NEUROSURGERY CLINIC HISTORY & PHYSICAL EXAMINATION Author: Antoinette Adkins MD,PhD Date: 10/03/2015 Attending Physician: Cecile PCP: Remington Camacho Md, MD HPI: Ms. Bell is a 65 y/o F with hx of rupture Acomm aneurysm s/p clipping, with post hemorrh agic HCP s/p R VPS (2008) who returns to clinic for follow up. At her last clinic appt 01/10 15, she had a Right frontal screw protrusion. Unfortunately, just shortly before that appoin tment she suffered NE and was placed on ASA/plavix, and was not cleared for surgery. However , since we last saw her, the skin over the screw has regrown, and the screw has actually niranjan rated posteriorly about 1 cm. The skin is intact over the loose screw. She denies recent fe vers/chills, ZULUAGA, N/V. 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 12/28/2014; status post stent placement in the mid LAD Abnormal LFTs (liver function tests) Past Surgical History Procedure Laterality Date Partial thyroidectomy Right Hysterectomy Cholecystecomy Bladder suspension 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 February 2012. Family History Problem Relation Cancer Brother lung Cancer Father brain PHYSICAL EXAM: Ht 1.499 m (4' 11") | Wt 51.846 kg (114 lb 4.8 oz) | BMI 23.07 kg/(m^2) General Appearance: NAD, Cooperative NEUROLOGICAL EXAM: Alert, following commands, answering appropriately PERRL, EOMI, Conjugate gaze, no nystagmus, no ptosis Sensation in tact in V1-V3 distributions bilaterally; Face motor grossly intact; eyes close fully Hearing intact to rub Shrugs shoulders bilaterally Tongue midline No Pronator Drift No [id number] dysmetria nor ataxia Motor: Delt (C5,6) Bi (C5) Tri (C7) WE (C6) FF (C8) IO (C8,T1) HF (L3) KE (L3,4) DF (L4) EHL (L5) PF (S1) Left 5 5 5 5 5 5 5 5 5 5 5 Right 5 5 5 5 5 5 5 5 5 5 5 Skin is intact throughout without redness or tenderness. ASSESSMENT/PLAN: Ms. Bell is a 65 y/o F with hx of aneurysmal SAH s/p clipping, and post hemorrhagic HCP s/p VPS, who has a loose Right frontal screw. The skin overlying the screw is intact. There is no evidence of infection. She also significant sunken cranial defect. Wi ll indicate for synthetic cranioplasty. -will place order for synthesis cranioplasty CT -to [place] for synthetic cranioplasty This case has been discussed with Dr. Huber, attending neurological surgeon, who is in agre ement with the assessment and plan as defined. Antoinette Adkins MD,PhD Antoinette Adkins MD,PhD Neurological Surgery, PGY-5 Neurosurgery Attending Note I saw and evaluated this patient on 10/03/2015 with my resident during our neurosurgical cli jah. See also my resident's note from today's visit. I agree with the documentation finding s and plan of care. Please refer to Dr. Adkins's history and physical for details of presentation. I spent more than 15 minutes [id number] with the patient of which greater than 50% was sp ent counseling the patient regarding the details of their progress. I answered all question s and the patient expressed understanding at the conclusion of this office visit. In additi on, I instructed the patient to call the office or return should any issues or return should any issues or concerns arise. Paramjit Huber MD Life Enrichment Assistant Director, Cerebrovascular and Skull Base Surgery Department of Neurological Surgery and Interventional Neuroradiology [address] [place] [address] documented in this encou nter Plan of Treatment Not on filedocumented as of this encounter Results CT HEAD WO CONTRAST (10/03/2015 4:00 PM PDT) + + + + + + | Component | Value | Ref Range | Performed | Pathologist | | | | | At | Signature | + + + + + + | CT HEAD WO | EXAM: CT head without | | | | | CONTRAST | contrast HISTORY: | | | | | | Preoperative evaluation | | | | | | for cranioplasty. | | | | | | COMPARISON: Outside CT | | | | | | of the head dated | | | | | | 03/19/2009. TECHNIQUE: | | | | | | CT of the head without | | | | | | contrast. Limited images | | | | | | provided | | | | | | forstereotactic | | | | | | guidance. FINDINGS: | | | | | | Brain: A right frontal | | | | | | approach BULLET CHARGING MACHINE OPERATOR shunt | | | | | | catheter is identified | | | | | | which traversesright | | | | | | frontal horn. The | | | | | | ventricles are | | | | | | decompressed and overall | | | | | | diminished involume | | | | | | compared to the prior | | | | | | CT, greater involving | | | | | | the right lateral | | | | | | ventricle.Similar | | | | | | postoperative changes | | | | | | related to prior | | | | | | anterior communicating | | | | | | arteryaneurysm clipping. | | | | | | No evidence of discrete | | | | | | hemorrhage, mass, or | | | | | | acuteinfarction. Stable | | | | | | encephalomalacia in the | | | | | | anterior left superior | | | | | | frontalgyrus. The | | | | | | ventricles are normal in | | | | | | size and morphology. | | | | | | Soft tissues: | | | | | | UnremarkableSkull and | | | | | | skull base: | | | | | | postoperative changes of | | | | | | right craniotomy, | | | | | | partiallyresorbed, | | | | | | involving the right | | | | | | frontal and temporal | | | | | | bones. Mastoids and | | | | | | middleears are | | | | | | unremarkable.Face/orbits | | | | | | : Visualized portions | | | | | | are | | | | | | unremarkable.Paranasal | | | | | | sinuses: Visualized | | | | | | portions are | | | | | | unremarkable. | | | | | | IMPRESSION: Stereotactic | | | | | | images for preoperative | | | | | | guidance demonstrating | | | | | | a right frontalapproach | | | | | | BULLET CHARGING MACHINE OPERATOR shunt catheter with | | | | | | overall decompression of | | | | | | the lateral | | | | | | ventriclesand right | | | | | | frontal craniotomy, | | | | | | partially resorbed.. | | | | | | Postoperative changes | | | | | | ofprior anterior | | | | | | communicating artery | | | | | | aneurysm clipping are | | | | | | unchanged. Attending | | | | | | Radiologists: QUIQUE | | | | | | ANA ARANDAuthor: | | | | | | NITESH NERI MD I | | | | | [...] | | | | | signed / QUIQUE | | | | | | MANOJ 10/03/2015 | | | | | | 18:14 PM | | | | + + [...]
--- OUTSIDE RECORDS SUMMARY | ~2019-10-16 | XMS | Encounter Summary ---
Demographics + + + | Address | [address] | | | [place] [address] | + + + | Home Phone [...] Team Providers + +------+ + | Care Portfolio Management Marketing Name | Role | Phone | + [...]
--- OUTSIDE RECORDS SUMMARY | ~2019-10-16 | XMS | Encounter Summary ---
Demographics + + + | Address | [address] | | | [place] [address] | + + + | Home Phone [...] Team Providers + +------+ + | Care Blower And Compressor Assembler Name | Role | Phone | + [...] MESH | | 2019 | | [facility] | [address] | CRANIOPLASTY; | | | | Rd [facility] | [facility] [place] | | | | | Hospital Admitting | [address] | | | | | Desk Located on the | [phone] | | | | | 9th floor | | | | | | [facility] [place] | | | | | | [address] | | | +--------+---------+ + + + [...] transferred to the rosas for continued ac [place] care and q4h flap checks. By POD [...] that I, or Nurse Practitioner or Physician Filter Plant Operator working with me, had a face to face encounter with this patient on 08/08/2018 On behalf of Attending Physician: Ata White MD I am ordering and certify that the following services are medically necessary home health s [facility] Mcfp Evaluate and Treat Wound care I certify [...] Appointments 08/17/2018 11:00 AM MD NITESH Hansen [facility] Otolaryngobecka 10/02/2018 12:00 PM MD NITESH Hansen [facility] Otolaryngobecka HOW TO REACH US: Tuesday- Tuesday from 8:00am to 4:30pm, call the Otolaryngology clinic at [phone]. After hours, weekends, and holidays, call the [facility] chucking and boring machine operator at [phone] and as k to have the ENT doctor on-call paged Future Appointments Date Time Provider Department Center 08/17/2018 11:00 AM MD NITESH Hansen [facility] Otolaryngobecka 10/02/2018 12:00 PM MD NITESH Hansen [facility] Otolaryngolo Consults obtained: Pertinent imaging: Pertinent [...] Shelton MD Resident Physician, PGY1 Service Pager: [phone] Valente Valdovinos MD,DD S - 08/10/2018 8:37 AM PDT Head and Neck Surgery Inpatient Daily Progress Note: Primary Care Provider: Mary Vazquez PA-C Admission Date: 08/03/2018 GLORIA ADHIKARI, [id number] Hospital Day #7 PROCEDURES: Dr. Diego 08/03/18 [...] RLB Gram Stain...........: Gram smear performed at [facility]. Culture: Final Report: No growth after 3 days. Final Report 04/29/2008 Corrected CSF Culture Source...............: Cerebrospinal Fluid RLB Gram Stain...........: Gram smear performed at [facility]. Culture: Rare Methicillin resistant Staphylococcus aureus Final ID MRSA Cefazolin R Clindamycin S Erythromycin R Oxacillin R Penicillin R Tetracycline S Trimeth/Sulfa S Vancomycin S Final Report Comment: Test performed at [facility]. 03/07/2008 Corrected CSF Culture Source...............: Cerebrospinal Fluid RLB Gram Stain...........: Gram smear performed at [facility]. Culture: Final Report: No growth after 3 days. Final Report Comment: Test performed at [facility]. 03/03/2008 Corrected CSF Culture Source...............: Cerebrospinal Fluid RLB Gram Stain...........: Gram smear performed at [facility]. Culture: Final Report: No growth after 3 days. Final Report Comment: Test performed at [facility]. 03/03/2008 Corrected Wound Culture Source...............: Skin Abscess RLB Gram Stain...........: Rare Squamous epithelial cells Rare PMN's Rare Gram positive cocci Culture: 1+ Methicillin resistant Staphylococcus aureus Final ID MRSA Cefazolin R Clindamycin S Erythromycin R Oxacillin R Penicillin R Tetracycline S Trimeth/Sulfa S Vancomycin S Final Report Resulted: 03/05/08 RLB ([facility]) [facility] [address] [place] [address] Comment: Test performed at [facility]. CULTURE RESULT Date Value Ref Range Status [...] Ok for discharge at any time from [facility] perspective. Mel Shelton MD Resident Physician, PGY1 Service Pager: [phone] oOsei Krueger MD - 08/09/2018 8:56 AM [...] RLB Gram Stain...........: Gram smear performed at [facility]. Culture: Final Report: No growth after 3 days. Final Report 04/29/2008 Corrected CSF Culture Source...............: Cerebrospinal Fluid RLB Gram Stain...........: Gram smear performed at [facility]. Culture: Rare Methicillin resistant Staphylococcus aureus Final ID MRSA Cefazolin R Clindamycin S Erythromycin R Oxacillin R Penicillin R Tetracycline S Trimeth/Sulfa S Vancomycin S Final Report Comment: Test performed at [facility]. 03/07/2008 Corrected CSF Culture Source...............: Cerebrospinal Fluid RLB Gram Stain...........: Gram smear performed at [facility]. Culture: Final Report: No growth after 3 days. Final Report Comment: Test performed at [facility]. 03/03/2008 Corrected CSF Culture Source...............: Cerebrospinal Fluid RLB Gram Stain...........: Gram smear performed at [facility]. Culture: Final Report: No growth after 3 days. Final Report Comment: Test performed at [facility]. 03/03/2008 Corrected Wound Culture Source...............: Skin Abscess RLB Gram Stain...........: Rare Squamous epithelial cells Rare PMN's Rare Gram positive cocci Culture: 1+ Methicillin resistant Staphylococcus aureus Final ID MRSA Cefazolin R Clindamycin S Erythromycin R Oxacillin R Penicillin R Tetracycline S Trimeth/Sulfa S Vancomycin S Final Report Resulted: 03/05/08 RLB ([facility]) [facility] [address] [place] [address] Comment: Test performed at [facility]. CULTURE RESULT Date Value Ref [...] Shelton MD Resident Physician, PGY1 Service Pager: [phone] Associated attestation - Casey Hewitt MD - [...] Vazquez PA-C Admission Date: 08/03/2018 GLORIA ADHIKARI, [id number] Hospital Day #6 PROCEDURES: Dr. Diego 08/03/18 [...] Intake/Output Summary (Last 24 hours) at 08/09/2018 7951 Last data filed at 08/09/2018 0500 Gross [...] RLB Gram Stain...........: Gram smear performed at [facility]. Culture: Final Report: No growth after 3 days. Final Report 04/29/2008 Corrected CSF Culture Source...............: Cerebrospinal Fluid RLB Gram Stain...........: Gram smear performed at [facility]. Culture: Rare Methicillin resistant Staphylococcus aureus Final ID MRSA Cefazolin R Clindamycin S Erythromycin R Oxacillin R Penicillin R Tetracycline S Trimeth/Sulfa S Vancomycin S Final Report Comment: Test performed at [facility]. 03/07/2008 Corrected CSF Culture Source...............: Cerebrospinal Fluid RLB Gram Stain...........: Gram smear performed at [facility]. Culture: Final Report: No growth after 3 days. Final Report Comment: Test performed at [facility]. 03/03/2008 Corrected CSF Culture Source...............: Cerebrospinal Fluid RLB Gram Stain...........: Gram smear performed at [facility]. Culture: Final Report: No growth after 3 days. Final Report Comment: Test performed at [facility]. 03/03/2008 Corrected Wound Culture Source...............: Skin Abscess RLB Gram Stain...........: Rare Squamous epithelial cells Rare PMN's Rare Gram positive cocci Culture: 1+ Methicillin resistant Staphylococcus aureus Final ID MRSA Cefazolin R Clindamycin S Erythromycin R Oxacillin R Penicillin R Tetracycline S Trimeth/Sulfa S Vancomycin S Final Report Resulted: 03/05/08 RLB ([facility]) [facility] [address] [place] [address] Comment: Test performed at [facility]. CULTURE RESULT Date Value Ref Range Status [...] cranioplasty exposure. She was admitted to neurosurgery [facility] on 07/10 and underwent explant of her cranioplasty and wound closure by ENT the follow ing day. She was discharged to home on 07/13. Ms Adhikari's surgical culture was notable f or growth of staph epidermidis. ID recommended no treatment at that time. She was seen in [facility] on 07/28 at which time her wound had dehisced after sutures removed in ENT-plastics clini c. As such, surgical plan for free flap was made. Ms Adhikari was admitted to [facility] on 08/03 f or right mesh cranioplasty, wound debridement and lat dorsi flap in coordination with Jose Bass and Christopher. PLAN: Wound care per primary team. Encourage mobilization, acute care rehab. OK for DVT prophylaxis from NSG perspective, if felt warranted. Smoking cessation. Neurosurgery to continue to follow. ANSON MULLINS [facility] [address] [address] [address] [phone] signed by ANSON Martinez at 08/08/2018 2:51 PM PDTValente Law i, MD,DDS - 08/08/2018 5:57 AM PDT Head and Neck Surgery Inpatient Daily Progress Note: Primary Care Provider: Mary Vazquez PA-C Admission Date: 08/03/2018 GLORIA ADHIKARI, [id number] Hospital Day #5 PROCEDURES: Dr. Diego 08/03/18 [...] RLB Gram Stain...........: Gram smear performed at [facility]. Culture: Final Report: No growth after 3 days. Final Report 04/29/2008 Corrected CSF Culture Source...............: Cerebrospinal Fluid RLB Gram Stain...........: Gram smear performed at [facility]. Culture: Rare Methicillin resistant Staphylococcus aureus Final ID MRSA Cefazolin R Clindamycin S Erythromycin R Oxacillin R Penicillin R Tetracycline S Trimeth/Sulfa S Vancomycin S Final Report Comment: Test performed at [facility]. 03/07/2008 Corrected CSF Culture Source...............: Cerebrospinal Fluid RLB Gram Stain...........: Gram smear performed at [facility]. Culture: Final Report: No growth after 3 days. Final Report Comment: Test performed at [facility]. 03/03/2008 Corrected CSF Culture Source...............: Cerebrospinal Fluid RLB Gram Stain...........: Gram smear performed at [facility]. Culture: Final Report: No growth after 3 days. Final Report Comment: Test performed at [facility]. 03/03/2008 Corrected Wound Culture Source...............: Skin Abscess RLB Gram Stain...........: Rare Squamous epithelial cells Rare PMN's Rare Gram positive cocci Culture: 1+ Methicillin resistant Staphylococcus aureus Final ID MRSA Cefazolin R Clindamycin S Erythromycin R Oxacillin R Penicillin R Tetracycline S Trimeth/Sulfa S Vancomycin S Final Report Resulted: 03/05/08 RLB ([facility]) [facility] [address] [place] [address] Comment: Test performed at [facility]. CULTURE RESULT Date Value Ref Range Status [...] cranioplasty exposure. She was admitted to neurosurgery [facility] on 07/10 and underwent explant of her [...] was made. Ms Adhikari was admitted to [facility] on 08/03 for r ight mesh cranioplasty, wound debridement and lat dorsi flap in coordination with Jose Diego and Christopher. PLAN: Wound care per primary team. Encourage mobilization, acute care rehab. OK for DVT prophylaxis from NSG perspective, if felt warranted. Smoking cessation. Neurosurgery to continue to follow. ANSON MULLINS [facility] [address] [place] [address] Valente Valdovinos MD,DDS - 08/07/2018 6:04 AM PDTFormatting of this note might be different from the alondraa l. Head and Neck Surgery Inpatient Daily Progress Note: Primary Care Provider: Mary Vazquez PA-C Admission Date: 08/03/2018 GLORIA ADHIKARI, [id number] Hospital Day #4 PROCEDURES: Dr. White (ENT) [...] 68 y.o. female HD#2 with CAD s/p AZ, HTN, GERD, tobacco use, and a history [...] Shelton MD Resident Physician, PGY1 Service Pager: [phone] Associated attestation - Casey Hewitt MD - [...] Vazquez PA-C Admission Date: 08/03/2018 GLORIA ADHIKARI, [id number] Hospital Day #3 PROCEDURES: Dr. White (ENT) [...] Gen Surg R4 First Call ENT resident operations and intelligence assistant Sabiha Wu M D - 08/05/2018 6:37 AM PDT Head and Neck Surgery Inpatient Daily Progress Note: Primary Care Provider: Mary Vazquez PA-C Admission Date: 08/03/2018 GLORIA ADHIKARI, [id number] Hospital Day #2 PROCEDURES: Dr. White (ENT) [...] Gen Surg R4 First Call ENT resident operations and intelligence assistant Israel Oden ACNP - 08/05/2018 5:41 AM PDT . Neuroscience Intensive Care Unit Team Progress Note NSICU ASSIGNED #[id number] ICU Admission Reason Most Recent Value ICU [...] in Hospital Abbreviated HPI / Daily Assessment Glroia Adhikari is a 68 year old female [...] She was discharged home the following day [facility] he presented on 05/14/2018 with enlarging right [...] She was then advised to present to [facility] ED. The patient had denied [...] Treatment Team Otolaryngology Ipt Critical Care Nsicu #[id number] Treatment Team Ipt Neurosurgery #[id number] Treatment Team Neurological Surgery Patient Lines/Drains/Airways Status [...] ICU NEURO Place of Service:- Inpatient CSN: [id number] Suggested Modifier: None Suggested CPT: TO QM NURSE Author:KOKO JACKSON [address] [id number] signed by KOKO Jackson at 08/05/2018 10:13 [...] pencil doppler with good Signal over right restorationism Incisions: c/d/i, drains with serosanguinous fluid. Soft [...] Berman MD Otolaryngology-Head & Neck Surgery PGY-2 [facility] ENT operations and intelligence assistant pager [phone] Vickie Haines MD,MPH - 12:24 AM PDT [...] RLB Gram Stain...........: Gram smear performed at [facility]. Culture: Final Report: No growth [...] 68 y.o. female HD#2 with CAD s/p AZ, HTN, GERD, tobacco use, and a history [...] Please contact the Neurosurgery resident on-call pager [phone] with questions or concerns. Vickie Estrada M.D., M.P.H. R2 Resident Physician Neurological Surgery Pager: [phone] signed by Vickie Estrada MD,MPH at 08/05/2018 [...] pencil doppler with good Signal over right restorationism Incisions: c/d/i, drains with serosanguinous fluid. Soft [...] Otolaryngology-Head & Neck Surgery PGY-2 [facility] ENT operations and intelligence assistant pager [phone] Georgia Pinto MD - 07/22 9:05 AM PDT . Neuroscience Intensive Care Unit Attending Progress Note Attending Pager #[phone] ICU Admission Reason Most Recent Value ICU [...] She was discharged home the following day [facility] he presented on 05/14/2018 [...] She was then advised to present to [facility] ED. The patient had denied [...] Treatment Team Otolaryngology Ipt Critical Care Nsicu #[id number] Treatment Team Ipt Neurosurgery #[id number] Treatment Team Neurological Surgery Code Status Code Status Full Code The Advanced Care Note for this patient can be found under the notes tab in chart review. Quality section A-Line necessity reviewed: Ihbf-nx-cblg blood pressure monitoring Benavides necessity reviewed: Plan [...] rec ent imaging available. Author:GEORGIA ARREOLA MD [address] [id number] signed by Georgia Arreola MD at 08/04/2018 9:09 AM Angie Randhawa PA-C - 08/04/2018 5:59 AM PDT DOS: 08/04/2018 Head and Neck Surgery Inpatient Daily Progress Note: Primary Care Provider: Mary Vazquez PA-C Admission Date: 08/03/2018 GLORIA ADHIKARI, [id number] Hospital Day #1 PROCEDURES: Dr. White (ENT) [...] and Neck Surgery Mail Code PV[address] [place] [address] Pager [phone] Consult/Night/Weekend Pager: [phone] Code Status: FULL ANGIE FRENCH PA-C Otolaryngology-Head and Neck Surgery [facility] Pager [phone] Israel Oden AC INSTRUCTION LIBRARIAN - 08/04/2018 5:50 AM PDT . Neuroscience Intensive Care Unit Team Progress Note NSICU ASSIGNED #[id number] ICU Admission Reason Most Recent Value ICU [...] She was discharged home the following day [facility] he presented on 05/14/2018 [...] She was then advised to present to [facility] ED. The patient had denied [...] Treatment Team Otolaryngology Ipt Critical Care Nsicu #74908 Treatment Team Ipt Neurosurgery #[id number] Treatment Team Neurological Surgery Patient Lines/Drains/Airways Status [...] ICU NEURO Place of Service:- Inpatient CSN: [id number] Suggested Modifier: None Suggested CPT: TO QM NURSE Author:KOKO JACKSON [address] [address] [place] [address]Lwleezinrjjsyr signed by KOKO Jackson at 08/04/2018 1:55 [...] RLB Gram Stain...........: Gram smear performed at [facility]. Culture: Final Report: No growth [...] 68 y.o. female HD#1 with CAD s/p AZ, HTN, GERD, tobacco use, and a history [...] Please contact the Neurosurgery resident on-call pager [phone] with questions or concerns. Vickie Estrada M.D., M.P.H. R2 Resident Physician Neurological Surgery Pager: [phone] signed by Casey Hewitt MD at 08/04/2018 [...] Please contact the Neurosurgery resident on-call pager [phone] with questions or concerns. Vickie Estrada M.D., M.P.H. R2 Resident Physician Neurological Surgery Pager: [phone] signed by Vickie Estrada MD,MPH at 08/03/2018 [...] PTT 55-70. Initial surgical contact: ENT resident operations and intelligence assistant Rosario Sanderson MD Resident, Plastic & Reconstructive Surgery [facility] Pager [phone] documented in this en counter H&P Notes Barry Ibrahim FNP - 08/03/2018 10:59 PM PDTFormatting of this note might be different fr om the original. . Neuroscience Intensive Care Unit Team H&P Note NSICU ASSIGNED #[id number] Days in ICU Days in Hospital Documentation [...] She was discharged home the following day [facility] he presented on 05/14/2018 [...] She was then advised to present to [facility] ED. The patient had denied [...] Abnormal LFTs (liver function tests) CAD in elim ira artery s/p NSTEMI 12/27/2014; status post stent [...] Bladder suspension 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 Ruling Technician shunt Tympanoplasty Right 1987 Lumpectomy of left breast 1979 Coronary stent placement 12/28/2014 status post stent placement in the mid LAD Removal of vp software shunt Cholecystectomy Allergies Allergen Reactions Odessa Tar Hives Betadine [Povidone-Iodine (With Soap)] Rash [...] Treatment Team Otolaryngology Ipt Critical Care Nsicu #15663 Treatment Team Ipt Neurosurgery #[id number] Treatment Team Neurological Surgery Patient Lines/Drains/Airways Status [...] e. Date of Service: 08/03/2018 GRANT Fuentes [address] [id number] signed by GRANT Fuentes at 08/03/2018 11:20 PM Star Ivey MD - 08/03/2018 10:12 PM PDTFormatting of this note might be different f rom the original. . Neuroscience Intensive Care Unit Attending H&P Note Attending Pager #[phone] ICU Admission Reason Most Recent Value ICU [...] She was discharged home the following day [facility] he presented on 05/14/2018 [...] She was then advised to present to [facility] ED. The patient had denied [...] Neuro checks; at risk for CSF leak, AZ, UTI, acute blood loss anemia, DVT -Strict [...] Treatment Team Otolaryngology Ipt Critical Care Nsicu #19039 Treatment Team Ipt Neurosurgery #[id number] Treatment Team Neurological Surgery Code Status Code Status Full Code The Advanced Care Note for this patient can be found under the notes tab in chart review. Quality section A-Line necessity reviewed: Kruk-zt-jhvy blood pressure monitoring Benavides necessity reviewed: Plan to DC today I have spent a total of 43 minutes in the direct care and management of this patient indepe ndent of any time spent teaching or performing any separately billable procedures. I reviewe d the documented findings, all data and the recent imaging available. Date of Service: 08/03/2018 Author:STAR VARELA MD [address] [id number] signed by Star Varela MD at 08/03/2018 [...] with cranioplasty exposure. [facility] and underwent explant [...] ENT and will see Dr Chandler from [place] after this appointment. Ms Adhikari reports that [...] daily. Facility-Administered Medications: None Allergies Allergen Reactions Odessa Tar Hives Betadine [Povidone-Iodine (With Soap)] Rash Cipro [Ciprofloxacin] Nausea and Vomiting Codeine Hcl Nausea and Vomiting Sulfa (Sulfonamide Antibiotics) Erythema Past Medical History: Diagnosis Date Abnormal LFTs (liver function tests) CAD in elim ira artery Chronic pain COPD Essential hypertension GERD [...] to be redone. Ata White MD MW/MODL /[id number] signed by Ata White MD at 08/14/2018 12:15 PM PDTWax , MD Ata - 08/11/2018 12:07 PM PDTAssociated Order(s): OPERATION RECORDDate of Service: 0 08/03/2018 Attending Surgeon:Ata White MD Filter Plant Operator(s):Dr. Garcia Preoperative Diagnosis: Cranioplasty infection. Postoperative Diagnosis: [...] The vein was measured and a 4.0 rn obgyn was utilized . We put the 2 [...] till the end of the case. A Cook-Munich Doppler was placed and there was excellent [...] end of the procedure. MD CHANDRIKA Hansen/NGUYEN /[id number] signed by Ata White MD at 08/11/2018 3:14 PM PDTDoMagnolia malik MD - 08/03/2018 6:27 PM PDTAssociated Order(s): OPERATION RECORDDate of Service: 08/03/2018 Attending Surgeon: MD Magnolia Hansen MD Filter Plant Operator(s): MD Abel Clarke MD David J Mazur [...] and loose hardware. She underwent a synthetic precision aircraft structure assembler nioplasty at that time. Unfortunately, she then [...] to the operating room theater on a [facility]. She was given to the [...] and anterior to the bone edges. The Geneva 1 was used to dissect the scar tissue and periosteum from the inner augustine of the bony defect . Tenotomies and [...] the case. MD Magnolia Benz MD DJM/NGUYEN /[id number] I, Dr. Magnolia Diego certify that I was present for and participated in the critical parts of the procedure. I further certify that I was the principal surgeon for this procedure. MAGNOLIA DIEGO MD [facility] 7C NSI [id number] [id number] documented in this encou nter Consult Notes [...] function declines significantly Please page clinical pharmacist ([phone]) or call central inpatient pharmacy ([phone]) with qu estions. Actual body weight: Weight: [...] pt. Pt discharged to brother[facility] house in [place]. andoff - Sachin Bradley RN - 08/11/2018 2:11 AM PDTAnson campbell Handoff [facility] IP NURSE HANDOFF: [facility] [...] RN - 08/10/2018 7:06 PM PDTNursing Handoff [facility] IP [facility]URSE HANDOFF: [facility] [...] RN - 08/10/2018 12:15 AM PDTNursing Handoff [facility] IP [facility]URSE HANDOFF: [facility] [...] N - 08/09/2018 3:14 AM PDTNursing Handoff [facility] IP [facility]URSE HANDOFF: [facility] [...] RN - 08/08/2018 6:45 PM PDTNursing Handoff [facility] IP [facility]URSE HANDOFF: [facility] [...] PDTNursing Handoff Patient Daily Goal: Sleep (08/05/18 5157) Patient Specific Preferences: family at bedside/TV on/cell phone within reach at all times (08/05/18 1053) [facility] IP NURSE HANDOFF: [facility] course events: Per previous handoff "Admit: 08/03 Rt precision aircraft structure assembler ni and Rt latissimus dorsi free flap [...] RN - 08/07/2018 1:34 PM PDTNursing Handoff [facility] IP [facility]URSE [facility] [...] within reach at all times (08/05/18 1053) [facility] IP [facility]URSE HANDOFF: [facility] [...] within reach at all times (08/05/18 1053) [facility] IP NURSE HANDOFF: [facility] [...] exercises Outcome: Goal met Physical Therapy Evaluation [id number] GLORIA Pomerene Hospital Day: 3 Date of : 1950 [...] Abnormal LFTs (liver function tests) CAD in elim ira artery Chronic pain COPD Essential hypertension GERD (gastroesophageal reflux disease) Goiter Hemorrhagic stroke ([facility]) 2007 MRSA (methicillin resistant staph aureus) culture positive Otitis media PONV (postoperative nausea and vomiting) Subarachnoid hemorrhage due to ruptured aneurysm ([facility]) 2007 Tobacco dependence Past Surgical History: Procedure Laterality Date BLADDER SUSPENSION CHOLECYSTECTOMY CORONARY STENT PLACEMENT 12/28/2014 HYSTERECTOMY LUMPECTOMY OF LEFT BREAST 1979 PARTIAL THYROIDECTOMY Right REMOVAL OF FINANCIAL ANALYSIS ADVISOR SHUNT REPAIR OF ANEURYSM BY CLIPPING TYMPANOPLASTY Right 1987 FINANCIAL ANALYSIS ADVISOR SHUNT Subjective:Patient agreed to work with PT [...] grocery shopping, hobbies- loves to go visit [employer], catching up with friends,COPD- uses oxygen at night- patient not sure about level of oxygen at this time Equipment at home: single point cane, electric wheelchair, three wheeled and four wheeled walker Patient / Family Goal: walk Communication/Barriers: Malagasy/none Pain: none endorsed Vital Signs: stable pre [...] rehabilitation: assessment and treatme nt (5th ed.). [place]: [facility]. p.254 Mobility & Transfers: Supine to [...] gait speed progressed to independent Outcome Measure: [facility] BASIC MOBILITY Difficulty turning over in [...] A Little - Minimal/Contact Guard Assist/Superv ision [facility] Basic Mobility Total Score 21 Interpretation of [facility] Short Form - Basic Mobility: CMS [...] PDTNursing Handoff Patient Daily Goal: Sleep (08/05/18 0722) Patient Specific Preferences: family at bedside/TV on/cell phone within reach at all times (08/05/18 1053) [facility] HANDOFF[facility] [...] within reach at all times (08/05/18 1053) [facility] [...] RN - 08/04/2018 6:37 PM PDTNursing Handoff [facility]URSE HANDOFF: [facility] [...] PM PDTPlan of Care - Mao Correa, [facility] - 08/03/2018 11:07 PM PDTFormatting of [...] Abnormal LFTs (liver function tests) CAD in elim ira artery s/p NSTEMI 12/27/2014; status post stent [...] Bladder suspension 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 Ruling Technician shunt Tympanoplasty Right 1987 Lumpectomy of left breast 1978 Coronary stent placement 12/28/2014 status post stent placement in the mid LAD Removal of vp software shunt Cholecystectomy Patient Lines/Drains/Airways Status Active Lines, [...] Additional pain medication information: Functional Epidural: N/A MAPPING SUPERVISOR: N/A Respiratory: RR: 23 , O2 Sat: 92 % , O2 Delivery: Oxymask Breath Sounds: Ex DARIEN: coarse LLL: RUL: coarse RLL: MELISSA No Comment: Cardiac: BP: 103/59 HR: 104 GI: Nausea/Vomiting Status: No Signs/Symptoms: Interventions: Assessment: Comments: : Last void: benavides in place Contact Name: brothpranay Lr Contact Number: [phone] tio Simental Family contacted: Yes Comment: Belongings:1 bag, [...] 30 degrees Initial surgical contact: DARY resident operations and intelligence assistant at pager [phone] Patient Lines/Drains/Airways Status Active Lines, Drains and [...] 08/14/2018 10:32:37DT: 08/14/2018 | | 10:59:02Job #: [id number] | + + OPERATION RECORD (08/11/2018 12:07 PM PDT) + + | Procedure Note | + + | Ata White MD - 08/11/2018 12:07 PM PDT Date of Service: 08/03/2018 Attending | | Surgeon:Ata White MD Filter Plant Operator(s):Dr. Garcia | | Preoperative Diagnosis: Cranioplasty infection.Postoperative [...] The vein was measured and a 4.0 rn obgyn was utilized. We put the 2 ends [...] till the end of the case. A SCRM Doppler was placed and there was excellent [...] MELI White/KATHERINED: 08/11/2018 14:18:44DT: 08/11/2018 14:50:31Job #: [id number] | + + CBC (HEMOGRAM) ONLY (08/10/2018 [...] | + + + + + | [facility] | [address] | [place] [address] | | | SERVICES, CORE | RAMSES [...] | | | LABORATORY | | | BRUNEIAN | | | SERVICES, | | | [...] MDRD equation recommended by the National | [facility] | | Kidney Disease Education Program. Estimated [...] | + + + + + | [facility] | [address] | [place] [address] | | | SERVICES, CORE | RAMSES [...] (H) | 60 - 99 mg/dL | [facility] - | | | GLUCOSE, [...] [facility] | [address] | [place], [place] | | | M[facility]Y POINT OF CARE | [address] | [address] | | | TESTS | | | [...] + + | [facility] | [address] | [place] [address] | | | SERVICES, CORE | PARK [...] | | | LABORATORY | | | BRUNEIAN | | | SERVICES, | | | [...] MDRD equation recommended by the National | [facility] | | Kidney Disease Education [...] | + + + + + | [facility] | [address] | [place] [address] | | | JOHNSON, RYAN | RAMSES [...] (H) | 60 - 99 mg/dL | [facility] - | | | GLUCOSE, [...] [facility] | [address] | [place], [place] | | | RA[facility]L JAY OF [facility] | [facility] | [address] | | | TESTS | | | [...] [facility] | [address] | [place], [place] | | | MISTY POINT OF CARE | [address] | [address] | | | TESTS | | | [...] ERNESTO | [address] | [place], [place] | | | MISTY [facility] | [facility] | [address] | | | TESTS | | | [...] | + + + + + | [facility] | [address] | [place] [address] | | | RYAN ORNELAS | RAMSES [...] | + + + + + | [facility] | [address] | [place] [address] | | | RYAN ORNELAS | PARK [...] | | | LABORATORY | | | BRUNEIAN | | | SERVICES, | | | [...] MDRD equation recommended by the National | [facility] | | Kidney Disease Education Program. Estimated [...] | + + + + + | [facility] [facility] | [address] | [place] [address] | | | SERVICES, CORE | RAMSES [...] | + + + + + | [facility] | [address] | [place] [address] | | | SERVICES, CORE | RAMSES [...] [facility] | [address] | [place], [place] | | | RA[facility]L JAY OF CARE | [address] | [address] | | | TESTS | | | [...] | + + + + + | [facility] | [address] | [place] [address] | | | RYAN ORNELAS | RAMSES [...] GIRISHAM | [address] | [place], [place] | | | MISTY POINT OF CARE | [address] | [address] | | | TESTS | | | [...] | + + + + + | [facility] | [address] | [place] [address] | | | SERVICES, CORE | RAMSES [...] (H) | 60 - 99 mg/dL | [facility] - | | | GLUCOSE, [...] [facility] | [address] | [place], [place] | | | RA[facility]L JAY OF CARE | [address] | [address] | | | TESTS | | | [...] [facility] | [address] | [place] [address] | | | SERVICES, CORE | RAMSES [...] [facility] | [address] | [place] [address] | | | SERVICES, CORE | PARK [...] | | | LABORATORY | | | BRUNEIAN | | | SERVICES, | | | [...] MDRD equation recommended by the National | [facility] | | Kidney Disease Education [...] | + + + + + | [facility] | [address] | [place] [address] | | | RYAN ORNELAS | RAMSES [...] (H) | 60 - 99 mg/dL | [facility] - | | | GLUCOSE, [...] ERNESTO | [address] | [place], [place] | | | [facility] | [address] | [address] | | | TESTS | | | [...] | + + + + + | [facility] | [address] | [place] [address] | | | SERVICES, CORE | PARK [...] [facility] | [address] | [place], [place] | | | RAÚL JAY OF OLIVIA | [facility] | [address] | | | TESTS | | | [...] | + + + + + | [facility] | [address] | [place] [address] | | | RYAN ORNELAS | RAMSES [...] [facility] | [address] | [place], [place] | | | MISTY POINT OF CARE | [facility] | [address] | | | TESTS | | | [...] [facility] | [address] | [place] [address] | | | SERVICES, CORE | PARK [...] [facility] | [address] | [place] [address] | | | SERVICES, | [address] [...] [facility] | [address] | [place] [address] | | | SERVICES, | [address] [...] + + + + | PRODUCT | [id number] | | [facility] | | | UNIT [...] + + + + | EXPIRATION | [id number] | | [facility] | | | DATE [...] + + + + | BLOOD | [id number] | | [facility] | | | PRODUCT [...] [facility] | [address] | [place] [address] | | | SERVICES, | [address] [...] MARMAURIAM | [address] | [place], [place] | | | [facility] | [facility] | [address] | | | TESTS | | | [...] [facility] | [address] | [place] [address] | | | SERVICES, CORE | PARK [...] [facility] | [address] | [place] [address] | | | SERVICES, CORE | PARK [...] | | | LABORATORY | | | BRUNEIAN | | | SERVICES, | | | [...] | + + + + + | [facility] | [address] | [place] [address] | | | JOHNSON, RYAN | RAMSES [...] - ERNEST[facility] | [address] | [place], [place] | | | M[facility] | [address] | [address] | | | TESTS | | | [...] | + + + + + | [facility] | [address] | [place] [address] | | | SERVICES, CORE | RAMSES [...] (H) | 60 - 99 mg/dL | [facility] - | | | GLUCOSE, [...] + + + | [facility] | [address] | [place], [place] | | | [facility] | [address] | [address] | | | TESTS | | | [...] | + + + + + | [employer] | [address] | [place] [address] | | | SERVICES, CORE | RAMSES [...] MARQU[facility] | [address] | [place], [place] | | | RA[facility]L JAY OF CARE | [address] | [address] | | | TESTS | | | [...] + + + + + | [facility] | [address] | [place] [address] | | | RYAN ORNELAS | RAMSES [...] | + + + + + | [facility] | [address] | [place] [address] | | | SERVICES, CORE | RAMSES [...] | | | LABORATORY | | | BRUNEIAN | | | SERVICES, | | | [...] + + | [facility] | [address] [facility] [address] | [place] [address] | | | SERVICES, CORE | RAMSES [...] | + + + + + | [facility] | [address] | [place] [address] | | | SERVICES, CORE | RAMSES [...] | + + + + + | [facility] | [address] | [place] [address] | | | SERVICES, CORE | RAMSES [...] (H) | 60 - 99 mg/dL | [facility] - | | | GLUCOSE, [...] [facility] | [address] | [place], [place] | | | MISTY POINT OF CARE | [address] | [address] | | | TESTS | | | [...] | + + + + + | [facility] | [address] | [place] [address] | | | SERVICES, RYAN | RAMSES [...] - ERNEST[facility] | [address] | [place], [place] | | | MISTY POINT OF CARE | [facility] | [address] | | | TESTS | | | [...] | + + + + + | [facility] | [address] | [place] [address] | | | SERVICES, RYAN | RAMSES [...] + + + + | PRODUCT | [id number] | | [facility] | | | UNIT [...] + + + + | EXPIRATION | [id number] | | [facility] | | | DATE [...] + + + + | BLOOD | [id number] | | [facility] | | | PRODUCT [...] [facility] | [address] | [place] [address] | | | SERVICES, | [address] [...] | + + + + + | [facility] | [address] | [place] [address] | | | SERVICES, CORE | RAMSES [...] [facility] | [address] | [place], [place] | | | RA[facility]L [facility]AY [facility] CARE | [address] | [address] | | | TESTS | | | [...] | + + + + + | [facility] | [address] | [place] [address] | | | RYAN ORNELAS | RAMSES [...] [facility] | [address] | [place], [place] | | | [facility]AY [facility] CARE | [address] | [address] | | | TESTS | | | [...] [facility] | [address] | [place], [place] | | | RA[facility]L [facility]AY [facility] CARE | [address] | [address] | | | TESTS | | | [...] [facility] | [address] | [place], [place] | | | RA[facility]AY [facility] CARE | [address] | [address] | | | TESTS | | | [...] ERNESTO | [address] | [place], [place] | | | S[facility] | [facility] | [address] | | | TESTS | | | [...] [facility] | [address] | [place] [address] | | | JOHNSON, CORE | PARK [...] - 120) sec Heparin levels of | [facility], CORE | | 0.35 - 0.7 U/mL | | + + + + + + + + | Performing | Address | City/State/Zipcode | Phone Number | | Organization | | | | + + + + + | [facility] | [address] | [place] [address] | | | RYAN ORNELAS | RAMSES [...] [facility] | [address] | [place], [place] | | | RA[facility]L JAY OF [facility] | [facility] | [address] | | | TESTS | | | [...] [facility] | [address] | [place], [place] | | | RA[facility]L [facility]AY OF CARE | [address] | [address] | | | TESTS | | | [...] | + + + + + | [facility] | [address] | [place] [address] | | | SERVICES, CORE | PARK [...] | | | LABORATORY | | | BRUNEIAN | | | SERVICES, | | | [...] MDRD equation recommended by the National | [facility] | | Kidney Disease Education [...] [facility] | [address] | [place] [address] | | | SERVICES, CORE | PARK [...] | + + + + + | [facility] | [address] | [place] [address] | | | SERVICES, CORE | RAMSES [...] (H) | 60 - 99 mg/dL | [facility] - | | | GLUCOSE, [...] + + + | [facility] | [address] | [place], [place] | | | [facility] | [address] | [address] | | | TESTS | | | [...] [facility] | [address] | [place], [place] | | | RA[facility]L JAY OF [facility] | [address] | [address] | | | TESTS | | | [...] report as now presented. Final signature: Letitia Orelalna MD 08/04/2018 7:41 AM | | Preliminary: [...] | + + + + + | [facility] | [address] | [place] [address] | | | SERVICES, CORE | RAMSES [...] ER[facility]ST[facility] | [address] | [place], [place] | | | RAÚL JAY OF [place] | [facility] | [address] | | | TESTS | | | [...] | + + + + + | [facility] | [address] | [place] [address] | | | SERVICES, CORE | RAMSES [...] [facility] | [address] | [place], [place] | | | RA[facility]L JAY OF CARE | [address] | [address] | | | TESTS | | | | + + + + + OPERATION RECORD (08/03/2018 6:27 PM PDT) + + | Procedure Note | + + | Magnolia Diego MD - 08/03/2018 6:27 PM PDT Date of Service: 08/03/2018 Attending | | Surgeon: MD Magnolia Hansen MD Filter Plant Operator(s): Rosario Pettit | | MD Abel Sanderson [...] operating room | | theater on a [facility]. She was given to the [...] to the bone | | edges. The [place] 1 was used to dissect the scar tissue and periosteum from the inner | | augustine of the bony defect. Tenotomies and blunt [...] | | 08/03/2018 15:19:29DT: 08/03/2018 15:55:39Job #: [id number], Dr. Magnolia Diego | | certify that I was present for and participated in the critical parts of the procedure. | | I further certify that I was the principal surgeon for this procedure.MAGNOLIA DIEGO, | | [facility] Pearson LER[id number], [place] [id number] | |Magnolia Diego MD | |DJM/MODL | | | | | | /[id number] | | | |I, Dr. Magnolia Diego certify that I was present for and participated in the critical parts of the procedure. I further certify that I was the principal surgeon for this procedure. | | | | | | | |MAGNOLIA DIEGO MD | |[facility] | |[address] | |[id number] | |[place] [address] | |[phone] | + + ANTIBODY SCREEN (08/03/2018 10:50 [...] [facility] | [address] | [place] [address] | | | SERVICES, | [address] [...] | + + + + + | [facility] | [address] | [place] [address] | | | SERVICES, | [address] [...] [facility] | [address] | [place], [place] | | | [facility] CARE | [address] | [address] | | | TESTS | | | [...] PDT | | | | | Starting [facility] 08/03/18 at 1450, | | | [...]
--- OUTSIDE RECORDS SUMMARY | ~2019-10-16 | XMS | Encounter Summary ---
Demographics + + + | Address | [address] | | | [place] [address] | + + + | Home Phone | | + + + | Preferred Language | Unknown | + + + | Marital Status | | + + + | Denominational Affiliation | MET | + + + [...] Team Providers + +------+ + | Care Applications Scientist Name | Role | Phone | [...] Description | +--------+---------+ + + + | 06/07/ | Surgery | [id number] | Beny Cruz, | RIGHT SUPERFICIAL | | 2014 | | [address] | [address] | PAROTIDECTOMY WITH | | | | [address] MICHELLE Man | [address] | NERVE PRESERVATION | | | | Hospital Admitting | [place], [place] | | | | | Desk Located on the | [address] | | | | | 9th floor | [phone] | | | | | [place], [place] | | | | | | [address] | | | +--------+---------+ + + + [...] + + + | Blood Pressure | 150/66 | 06/08/2014 7:12 AM | | | | | PDT | | + + + + + | Pulse | 77 | 06/08/2014 7:12 AM | | | | | PDT | | + + + + + | Temperature | 36.7 C (98.1 F) | 06/08/2014 7:12 AM | | | | | PDT | | + + + + + | Respiratory Rate | 16 | 06/08/2014 7:12 AM | | | | | PDT | | + + + + + | Oxygen Saturation | 90% | 06/08/2014 8:00 AM | | | | | PDT [...] + documented in this encounter Discharge Summaries Kashif Sunshine MD - 06/08/2014 12:35 PM PDT Otolaryngology Head & Neck Service INPATIENT PHYSICIAN DISCHARGE SUMMARY Author: KASHIF SUNSHINE MD Attending Physician: Beny Cruz MD PCP: Remington Leroy Md, MD Admission Date: 06/07/2014 Discharge Date: 08 Jun 2014 Diagnoses Principal Final Diagnosis: Right parotid tumor Additional Diagnoses: Hypertension COPD Goiter Subarachnoid hemorrhage Patient Active Problem List Diagnosis COPD SAH (Subarachnoid Hemorrhage) HTN Chronic Pain Otitis Media 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 She underwent the above procedure without co mplication on the same day. Post-operatively, she was transferred to the cooper for convalesce nt care. Pain was controlled with oral analgesia, a regular diet was tolerated well and she was voiding without difficulty. On the day of discharge, the patient was doing well, and th e surgical site was clean and intact without signs concerning for infection. She has a histo ry of COPD but does not use oxygen at home. She was saturating >89% SpO2 on room air and was not requiring supplemental oxygen on post-operative day #1.The patient was felt appropriate to discharge to home on 06/08/2014, and the patient and treatment team agree with this cours e of action. Cielo Bell was given specific written and verbal instruction at t he time of discharge and is to follow up with her local provider for drain removal in 2-[address] Beny Cruz will call her with the pathology results when they become availa ble. Medications: Discharge Medication List as of 06/08/2014 10:36 AM START taking these medications Details acetaminophen 325 mg oral tablet Take 1-2 tablets by mouth every four hours as needed., OTC bacitracin 500 unit/gram topical ointment Apply to affected area three times daily., Disp- 30 g, R-0, Print Prescription oxyCODONE, immediate release, 5 mg oral tablet Take 0.5-1 tablets by mouth every three hour s as needed for moderate pain or severe pain., Disp-40 tablet, R-0, Print Prescription Diet Regular You may resume your usual diet. Activity As tolerated Destination: Destination: Home Condition on Discharge Good Vitals on discharge: BP 150/66, Pulse 77, Temperature 36.7 C (98.1 F), RR 16, SpO2 90%. Exam on discharge: Gen: awake and alert, NAD HEENT: face symmetric at rest; subtle right marginal mandibular branch weakness with smile neck soft and flat Incision: clean, dry and intact LAZARA x 1 intact to bulb suction with SS output Resp: comfortable, unlabored on room air with ambulation Attending Physician: Beny Cruz MD Discharging Physician: MD KASHIF ESPOSITO MD Otolaryngology, PGY1 [id number] signed by Beny Cruz MD at 06/10/2014 6:56 AM PDTdocumented in t his encounter Discharge Instructions Instructions Almita Marquez RN - 06/08/2014Patient Education Materials: COPD: Bindu campbell Lungs: General Info; Surgical Drain Care Additional Instructions: Please review the above provided education materials on tips to cl ear your lungs maintain adequate oxygenation and perfusion. Also included is written educati on on your Drain that you are going home with. You demonstrated to me how to milk/strip the tubing (cautiously so as not to pull it out) and emptying the contents of the bulb as well a s compressing it to maintain suction. Thank you for choosing [facility] for your care and for staying with us on 5B Day Stay Unit. It h as been a pleasure caring for you! Discharge Nurse: ALMITA JIMMY Date: 06/08/2014 Discharge Time: 10:31 AM AttachmentsThe following attachments cannot be sent through Care Everywhere.COPD: CLEARING LUNGS : GENERAL INFO (DJIBOUTIAN)SURGICAL DRAIN CARE (DJIBOUTIAN)documented in this encounter Progress Notes Kashif Sunshine MD - 06/08/2014 7:00 AM PDT Otolaryngology / Head and Neck Surgery Progress Note Date: 06/08/2014 Hospital Day:1 Author; KASHIF SUNSHINE MD Attending Physician: Beny Cruz MD ID: Cielo Bell is a 64 year old female patient with history of COPD, HTN, h/o stroke, g oiter, and right parotid mass who is POD#1 from right parotidectomy Interval History: No acute events On supp O2 overnight but resting and ambulating with adequate saturations on room air this AM on exam Tolerating diet. Emesis x1 overnight. Denies persistent nausea. Voiding Ambulating Complains of sore throat. Otherwise pain tolerable. Last Vitals: BP 127/67, Pulse 86, Temperature 36.8 C (98.2 F), RR 16, SpO2 93%. 24 Hour Vitals: Temp Av.7 C (98 F) Min: 36.3 C (97.3 F) Max: 36.9 C (98.4 F) Pulse Av.6 Min: 70 Max: 96 Systolic (24hrs), Av mmHg, Min:103 mmHg, Max:148 mmHgDiastolic (24hrs), Av mmHg, M in:40 mmHg, Max:82 mmHg SpO2 Av.2 % Min: 90 % Max: 99 % Resp Av Min: 9 Max: 25 Intake/Output Summary (Last 24 hours) at 06/08/14 0700 Last data filed at 06/08/14 0600 Gross per 24 hour Intake 2233.33 ml Output 2420 ml Net -186.67 ml Drains: 45 Physical Exam: Gen: awake and alert, NAD HEENT: face symmetric at rest; subtle right marginal mandibular branch weakness with smile neck soft and flat Incision: clean, dry and intact LAZARA x 1 intact to bulb suction with SS output Resp: comfortable, unlabored on room air Medications: Current Inpatient Medications Medication Dose Route Frequency acetaminophen (TYLENOL) tablet 325-650 mg 325-650 mg oral Q4H PRN bacitracin ointment topical TID lactated ringers IV 100 mL/hr intravenous CONTINUOUS morphine injection 1-3 mg 1-3 mg intravenous Q2H PRN nicotine (NICOTROL) 21 mg/24 hr patch 1 patch 1 patch transdermal DAILY ondansetron (ZOFRAN) injection 4 mg 4 mg intravenous Q12H PRN oxyCODONE (immediate release) (ROXICODONE) tablet 5-15 mg 5-15 mg oral Q3H PRN senna-docusate (SENOKOT S) 8.6-50 mg 1 tablet 1 tablet oral BID Labs: No new Assessment and Plan: Cielo Bell is a 64 y.o. female who is POD #1 from right parotidectomy. Very well appearing. AVSS. Pain tolerable. Tolerating diet. Ambulating. Voidi ng. Continue prn analgesia Continue IS Continue diet Continue to encourage OOB Ppx: ambulation, SCDs, IS, diet Dispo: to home today with family Kashif Sunshine MD Otolaryngology Head and Neck Surgery, PGY-1 Pager [phone] documented in this en counter H&P Notes Other, Faculty - 06/10/2014 11:20 PM PDTElectronically signed by Faculty Other at 5 11:20 PM PDTdocumented in this encounter Procedure Notes Other, Faculty - 06/12/2014 9:08 AM PDTAssociated Order(s): CARDIOLOGYElectronically shayy d by Faculty Other at 06/12/2014 9:08 AM Beny Singh MD - 06/07/2014 9:24 AM PDTAt tending Surgeon Attestation I was present for the critical portions of the procedure. Beny Cruz MD Professor of Otolaryngology, Head & Neck Surgery Sebastian Hui MD - 06/07/2014 9:24 AM PDTAssociated Order(s): PROCEDURE NOTEOPERATIVE NOTE Cielo Bell [id number] Date of Surgery: 06/07/2014 Attending Surgeon: Beny Cruz MD Melter Assistant(s): SEBASTIAN MICHELLE MD and Angel Mazariegos MD Pre-op diagnosis: Right parotid tumor Postop diagnosis: same Procedures Performed: 1. 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 Removed wi th preservation of the nerve. INDICATIONS: Cielo Bell is a 64 y.o. female with a history of a mass in the right parotid w hich had undergone biopsies suggestive of a Warthin's. The patient was indicated for the abo ve procedure in clinic and after full discussion of the options and alternatives including o bservation alone, the patient did elect to proceed with surgery as described above. PROCEDURE: The patient was identified in the preop holding area as Cielo Bell. The patien t was properly marked prior to the transport to the operating room. The patient was then tra nsported to the operating room and placed supine on the operating table and administered gen eral endotracheal anesthesia by members of the Anesthesiology Service. A brief timeout was h eld when the patient and procedure were identified per operating room protocol. The bed was rotated 90 degrees. Cielo Bell was then prepped and draped in a standard and st erile fashion. A modified Toro incision was designed and marked with a marking pen. It was injected with approximately 5 mL of 1% lidocaine with 1:100,000 epinephrine for anesthesia and hemostasis. The procedure was then initiated. The skin incision was made with a 15 blade scalpel down t o the superficial fascia of the neck, which was then divided sharply. A short subplatysmal s kin flap was raised anteriorly. A supraperichondrial flap was identified in preauricular ar ea, and the intervening soft tissues and superficial parotid tissue were divided. Next, we i dentified the sternocleidomastoid muscle. The anterior aspect of the muscle was skeletonized from the level of the great auricular nerve superiorly to the mastoid tip. The tumor was ov er the digastric, so it was not specifically identified. We deepened the preauricular incis ion preauricularly until we had reached approximately the level of the bony skills auditor y canal. At this point of dissection, we transitioned from Bovie electrocautery dissection to blunt dissection with a Watkins dissector and the bipolar electrocautery. Using the digastric muscl e, bony external auditory canal, mastoid tip and tympanomastoid suture line, we then identif ed the main trunk of the facial nerve in its normal anatomic position. We followed the facia l nerve in superior and inferior divisions with a Watkins dissector dissecting the overlying parotid tissue away with the bipolar electrocautery, circumscribing the mass in the process. After the superior and inferior divisions in peripheral branches were dissected free, the mass was able to be removed from over top of the facial nerve branches without difficulty. The wound bed was inspected as was the specimen, and it was felt that the entirety of the t umor had been excised with the superficial lobe of the parotid gland. Hemostasis was then a chieved with bipolar electrocautery. The main trunk and peripheral branches of the facial n erve were then stimulated with the prass proble, and found to be functioning. The nerve was covered with gelfoam soaked in thrombin. Then a single LAZARA drain was placed through a separa te stab incision in the postauricular skin and was secured with a 3-0 silk tie. The skin f laps were reapproximated and sutured together with 4-0 Vicryl suture, and the skin was close d in a layered fashion with 4-0 Vicryl for the subdermal layer and 5-0 fast-absorbing gut castillo ture in a running locking stitch for the skin. The wound was dressed with bacitracin ointment, and the patient was then turned over to [facility] for reversal of anesthesia. After the smooth reversal of general endotracheal an esthesia, the patient was extubated in the operating room and transported to the postanesthe [place] care unit in stable condition. There were no complications evidenced during the case. The patient seemed to tolerate all p ortions of this procedure well. Dr. Cruz was present during the critical portions of the procedure. SEBASTIAN MICHELLE MD Tdocumented in this encounter Miscellaneous Notes Scan - Other, Faculty - 06/19/2014 6:40 PM PDTElectronically signed by Faculty Other at 6:40 PM PDTScan - Other, Faculty - 06/12/2014 12:45 PM PDT can - Other, Faculty - 06/10/2014 11:20 PM PDTElec tronically signed by Faculty Other at 06/10/2014 11:20 PM PDTScan - Other, Faculty - 015 10:14 PM PDT andoff - Almita Stephens RN - 06/08/2014 12:02 PM PDTNursing Discharge Note Discharge Date: 06/08/2014 Additional Discharge Information: Patient discharge to home per MD discharge order. PIV's d iscontinued. Patient received and understands all [facility] discharge teaching literature and EPI C discharge prescriptions. Patient has accounted for all personal belongings and will take t hem home. Transportation needs met by daughter. Discharge Nurse: ALMITA MARQUEZ lan of Care - Dougie Stewart RCP - 06/08/2014 11:50 AM PDTProblem: RT Goals & Interventions Goal: Assess patient and arrange for respiratory DME at discharge Respiratory Care Discharge Planning Desaturation Evaluation for Oxygen Use at Home Purpose for evaluation: Desaturation evaluation for initial qualification for home O2 Ordering Provider: kashif Sunshine MD Diagnosis: COPD ICD-9:496.0 Evaluation results: $ SpO2 on room air at rest (%): 91 % (06/08/14 1146) Ambulated patient?: Yes (06/08/141145) SpO2 on room air with ambulation (%): 89 % (06/08/14 114) Dyspnea Index - Before: 0 (06/08/14 114) Dyspnea Index - After: 0 (06/08/14 114) Questions about the O2 evaluation can be referred to the RT [employer] Kn[employer] Operator by paging [phone] Comments: Pt. 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 Pt states h er discomfort is manageable. Spiritual, psych/social findings: Very pleasant woman. Family involved in care. Radha alejandre 02/2013. Medical findings: VSS, A&O X4, OOB to commode, steady on feet, R LAZARA drain, minimal draina ge output. R neck incision, MARILYN, CDI. 1-2L of O2 & trying to wean off O2. Pt has a very c ongested/productive cough. One emesis event last noc shift Last patient visit (i.e. FACETS): Pt managed own hygiene and dressed. Escorted out of hosp ital via wheelchair with volunteer and family. DC focus: Teaching: D/C teaching complete including LAZARA drain teaching and drain log provided with in structions. Unable to wean off O2 and RT Home O2 evaluation completed prior to DC. Pt uses IS. Discharged home today 06/08 with daughter to [place] Daily patient goal: to go home Outcome of goal: met Care plan: 1. Pt to maintain adequate O2 saturations and perfusion during weaning of supplemental O2. 2. Pt to maintain comfort with pain level managed. Intervention: 1. Assess need for supplemental O2 at rest and during activity. Wean from O2 at rest and as sess if patient can tolerate reduced rate of O2 during activity. Assess lung sounds, respir atory rate and cough at beginning of shift. Teach patient rationale for CDB and explain effe cts of narcotics on respiratory patterns and resulting risks. Teach cdb techniques and ask p atient to demonstrate then practice during awake hours.Monitor with pulse oximeter continuou sly during intervention. Assess for accuracy by ensuring good waveform. Monitor respiratory rate, depth, rhythm, lung sounds throughout shift and any deficiencies. Collaborate with MD and RT as necessary and request for Home O2 evaluation to ensure safe DC. 2. Assess non-verbal pain and anxiety indicators. Maintain calm and relaxing environment fr ee from distractions with comfortable temperature. Monitor frequently and prevent pain from exceeding tolerable level by establishing pain med schedule. Encourage pt to call for assist ance when needing pain relief, position changing or environment/physiological adjustment. Di scuss with patient alternative comfort measures to pharmacological interventions. Maintain c omfortable and soothing environment. Collaborate with team as necessary. Interventions that worked/didn't work: Unable to wean pt off O2 , Pt continued to desat int ermittently but was able to easily recover and increase saturations <90% with CDB & IS exerc ises. Pt has dx of COPD and MD put in for RT Home O2 Eval order. Evaluation complete and det ermined that pt could safely DC without supplemental O2. Pt was satisfied with this result. Family present with discussion with MD and RT DC environmental planner. Gave pt education at discharge for : COPD: Clearing Lungs. Pt denied pain and any interventions this shift My recommendations forward: Care is complete and pt has been discharged. 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 Pt states h er discomfort is manageable. Spiritual, psych/social findings: Very pleasant woman. Family involved in care. Radha alejandre 02/2013. Medical findings: VSS, A&O X4, OOB to commode, steady on feet, R LAZARA drain, minimal chao inage output. R neck incision, RN POSTPARTUM, CDI. 4L of O2 & trying to wean off O2. Pt has a very congested cough. One emesis event after eating dinner. Pt thought it was from the coffee. Gave Zofran X1. Targeted interventions based on risk & stability (care plan): Pt's pain will be well douglas ged. Pt will tolerate PO. Response to interventions (evaluation): Pt's pain is manageable and does not want any pain meds. Pt ate dinner & had one emesis event. Last patient visit (i.e. FACETS): Pt resting comfortably in bed, no complaints of pain. Pending interventions: Teaching: D/C teaching, possible LAZARA drain teaching if pt goes home with drain. Need to we an off O2. Pt uses IS. Discharge Plan home today 06/08 & hopefully wean off O2. 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 Falls/Activity/Comfort/Environment/Toileting/Skin): Pt resting com fortably, was up to commode, waiting for dinner Orders to follow up on/Anticipated procedures: Home drain care, d/c tomorrow? Daily patient goal: Pt will state pain as acceptable level Interventions: Provide pain medications as needed, adjust environment, use distraction such as conversation and tv Outcome of patient goal: Pt has had an acceptable level of pain 4/10 Recommendations forward: Wean off O2, encourage ambulation and IS use, d/c home tomorrow Lopez Ramires RN - 06/07/2014 11:20 AM Bo Phase I Discharge Criteria (Stable For Transfer): Major deviations/events or pertinent findings of eddie-operative stay: Pt has had some nause a and no pain. My biggest concern for her is her o2 sats. She is staying in the low 90s on 3-4l/nc when asleep. LS diminished. Encouraging frequent c et db. Upright in bed. Anabel tly giving a breathing treatment. Anticipated post-op needs/devices/follow up: Encourage IS use. Monitor pain and sats. Post-Op Diagnosis Codes: * Benign neoplasm of major salivary glands [210.2] Surgical Procedure Planned - Actual Procedure Performed: Procedure(s) with comments: SUPERFICIAL PAROTIDECTOMY W/ NERVE PRESERVATION - RIGHT SUPERFICIAL PAROTIDECTOMY WITH NERV E PRESERVATION Anesthesia: General Length of procedure: In Room/Out of Room: 1 Hr 45 Min 13 Sec Surgeon(s) and Role: * Beny Cruz MD - Primary * Angel Mazariegos MD - Fellow OR positioning comments: Neuro: POSS Sedation Level: Frequently Drowsy, Arousable, Drifts Off to Sleep during Conve rsation Last pain medication given: Pain medication totals: None in pacu. Additional pain medication information: Functional Epidural: N/A OUTLET MANAGER: N/A Respiratory: RR: 14, O2 Sat: 96 %, O2 Delivery: Oxymask Breath Sounds: WDL Except DARIEN: LLL: RUL: RLL: MELISSA No Comment: Cardiac: BP: 113/56 mmHg HR: 76 GI: Nausea/Vomiting Status: Yes- Zofran given. Pt states it's better now. Signs/Symptoms: Interventions: Assessment: Comments: : Last void: Around 0730 this am. Will bladder scan soon. Contact Name: Linda disla Contact Number: [phone] Family contacted: No Comment: Belongings: documented in this enc ounter Plan of Treatment Not on filedocumented as of this encounter Procedures + +--------+ + + + | Procedure Name | Priori | Date/Time | Associated Diagnosis | Comments | | | ty | | | | + +--------+ + + + | PROCEDURE NOTE | Routin | 03/27/2015 | | Results for this | | | e | 2:46 PM | | procedure are in the | | | | PST | | results section. | + +--------+ + + + | SUPERFICIAL | Electi | 06/07/2014 | Benign neoplasm of | | | PAROTIDECTOMY W/ | ve | 7:28 AM | major salivary | | | NERVE PRESERVATION | Surgic | PDT | glands | | | | al | | | | + +--------+ + + + | CARDIOLOGY | | 06/07/2014 | | Results for this | | | | 12:00 AM | | procedure are in the | | | | PDT | | results section. | + +--------+ + + + | SURGICAL PATHOLOGY | Routin | 06/07/2014 | | Results for this | | | e | | | procedure are in the | | | | | | results section. 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 | | | | | | Narinder Clark, | | | | | | Ph.D./PathologistT:06/10 | | | | | | /rdl Clinical | | | | | | History:The patient is a | | | | | | 64-year-old female. | | | | | | Per Epic: Right neck | | | | | | mass for 3 | | | | | | yearsincreasing in size. | | | | | | The mass measures 5 x | | | | | | 2.5 cm and is | | | | | | consistent withWarthin's | | | | | | tumor. The patient | | | | | | has a history of goiter | | | | | | status post | | | | | | righthemithyroidectomy. | | | | | | Gross | | | | | | Description:Received is | | | | | | 1 specimen fresh in a | | | | | | container labeled with | | | | | | the patient | | | | | | name(initials SW) and | | | | | | "right superficial | | | | | | parotidectomy." | | | | | | Received is | | | | | | acauterized, yellow-eisenberg, | | | | | | lobulated portion of | | | | | | parotid gland (4 x 2 x 1 | | | | | | cm)with minimally | | | | | | attached fibroadipose | | | | | | tissue and an attached | | | | | | eisenberg-pink, softnodule | | | | | | (5.3 x 4 x 2.5 cm). | | | | | | The specimen measures | | | | | | overall 6.5 x 2.5 x | | | | | | 3.7cm. The specimen is | | | | | | inked as follows: The | | | | | | cauterized parotid | | | | | | gland marginin black and | | | | | | the remaining external | | | | | | surface in blue. The | | | | | | specimen isserially | | | | | | sectioned to reveal the | | | | | | nodule to have a | | | | | | multiloculated cystic | | | | | | cutsurface. The cysts | | | | | | are filled with | | | | | | eisenberg-brown, and the inner | | | | | | lining hasmultifocal | | | | | | areas of eisenberg-pink, | | | | | | papillary-like | | | | | | excrescences. The cyst | | | | | | comeswithin 0.3 cm of | | | | | | the nearest parotid | | | | | | gland margin. The cyst | | | | | | navarro averageless than | | | | | | 0.1-cm thick. The | | | | | | attached fibroadipose | | | | | | tissue is palpated | | | | | | forlymph nodes and 3 | | | | | | eisenberg-red, ovoid lymph | | | | | | node candidates are | | | | | | dissected outranging in | | | | | | size from 0.7 cm to 0.9 | | | | | | cm in greatest | | | | | | dimension.Forepart Reducer | | | | | | sections are submitted. | | | | | | Cassette | | | | | | Index:A1, uninvolved | | | | | | parotid parenchymaA2, | | | | | | cyst wall nearest | | | | | | parotid parenchymal | | | | | | marginA3-6, | | | | | | circulation representative sections | | | | | | of cystA7, three lymph | | | | | | node candidatesAW:tp | | | | | | My electronic | | | | | | signature indicates that | | | | | | I have personally | | | | | | reviewed alldiagnostic | | | | | | slides, the gross and/or | | | | | | microscopic portion of | | | | | | thisreport and | | | | | | formulated the final | | | | | | diagnosis. | | | | | | Rendering Diagnostician: | | | | | | Alvin Clark | | | | | | M.D. | | | | | | Ph.D.PathologistElectron | | | | | | ically Signed 06/11/2014 | | | | | | 9:11AM | | | | + + + + + + + + | Specimen | + + | | + + + + + + + | Performing | Address | City/State/Zipcode | Phone Number | | Organization | | | | + + + + + | [facility] | [address] | [place] [address] | | | PATHOLOGY | [address] | | | + + + + + CARDIOLOGY (06/07/2014 12:00 AM PDT) + + + | Narrative | Performed At | + + + | | | | | | + + + + + | Procedure Note | + + | Alyssa Liu - 06/12/2014 9:08 AM PDT | + + documented in this encounter Visit Diagnoses + + | Diagnosis | + + | Benign neoplasm of major salivary glands | + + documented in this encounter Administered Medications + +--------+ +------+------+------+ | Medication Order | MAR | Action | Dose | Rate | Site | | | Action | Date | | | | + +--------+ +------+------+------+ | bacitracin ointment topical, | Given | 06/09/19 | | | | | THREE TIMES DAILY, First dose on | | 15 7:16 | | | | | 06/07/14 at 1100, Until | | AM PDT | | | | | Discontinued | | | | | | + +--------+ +------+------+------+ +-------+ +---+---+---+ | Given | 06/08/19 | | | | | | 15 10:23 | | | | | | PM PDT | | | | +-------+ +---+---+---+ | Given | 06/08/19 | | | | | | 15 5:56 | | | | | | PM PDT | | | | +-------+ +---+---+---+ +---+---+ | | | +---+---+ + +-------+ +------+---+---+ | ipratropium-albuterol (DUO-NEB) | Given | 06/08/19 | 3 mL | | | | nebulizer solution 3 mL 3 mL, | | 15 11:19 | | | | | inhalation, ONCE, 1 dose, Fri | | AM PDT | | | | | 06/07/14 at 1145 | | | | | | + +-------+ +------+---+---+ + +---+ | | | + +---+ | ipratropium-albuterol (DUO-NEB) | | | nebulizer solution 1 dose, | | | Starting 06/07/14 at 1111, | | | Until Tue06/07/14 at 1119 | | + +---+ | | | + +---+ + +---------+ +-------+-------+---+ | lactated ringers IV 100 mL/hr, | New Bag | 06/08/19 | 100 | 100 | | | intravenous, CONTINUOUS, | | 15 2:46 | mL/hr | mL/hr | | | Starting 06/07/14 at 0945, | | PM PDT | | | | | Until 06/08/14 at 1806 | | | | | | + +---------+ +-------+-------+---+ +---+---+ | | | +---+---+ + +-------+ +------+---+ + | lidocaine-EPINEPHrine | Given | 06/08/19 | 4 mL | | Surgical | | (XYLOCAINE WITH EPINEPHRINE) 1 | | 15 7:59 | | | Site | | %-1:100,000 injection | | AM PDT | | | | | INTRAPROCEDURE PRN, Starting Fri | | | | | | | 06/07/14 at 0759, Until Fri | | | | | | | 06/07/14 at 0913 | | | | | | + +-------+ +------+---+ + +---+---+ | | | +---+---+ + + + +---------+---+---+ | nicotine (NICOTROL) 21 mg/24 hr | Applied | 06/08/19 | 1 patch | | | | patch 1 patch 1 patch, | Patch | 15 5:53 | | | | | transdermal, DAILY, First dose on | | PM PDT | | | | | 06/07/14 at 1645, Until | | | | | | | Discontinued | | | | | | + + + +---------+---+---+ +---+---+ | | | +---+---+ + +---------+ +------+---+---+ | ondansetron (ZOFRAN) injection | New Bag | 06/08/19 | 4 mg | | | | 4 mg 4 mg, intravenous, | | 15 10:17 | | | | | POSTPROCEDURE PRN, 1 dose, | | AM PDT | | | | | Starting Tue06/07/14 at 0758, | | | | | | | Until Tue06/07/14 at 1017, | | | | | | | nausea/vomiting | | | | | | + +---------+ +------+---+---+ +---+---+ | | | +---+---+ + +---------+ +------+---+---+ | ondansetron (ZOFRAN) injection | New Bag | 06/08/19 | 4 mg | | | | 4 mg 4 mg, intravenous, EVERY 12 | | 15 8:08 | | | | | HOURS NEEDED, Starting Fri | | PM PDT | | | | | 06/07/14 at 0910, Until Sat | | | | | | | 06/08/14 at 1806, nausea/vomiting | | | | | | + +---------+ +------+---+---+ + +---+ | | | + +---+ | ondansetron (ZOFRAN) injection | | | 1 dose, Starting 06/07/14 at | | | 1014, Until 06/07/14 at 1017 | | + +---+ | | | + +---+ + +-------+ + +---+---+ | senna-docusate (SENOKOT S) | Given | 06/08/19 | 1 tablet | | | | 8.6-50 mg 1 tablet 1 tablet, | | 15 10:22 | | | | | oral, TWICE DAILY, First dose on | | PM PDT | | | | | 06/07/14 at 1100, Until | | | | | | | Discontinued | | | | | | + +-------+ + +---+---+ +---+---+ | | | +---+---+ documented in this encounter
--- OUTSIDE RECORDS SUMMARY | ~2019-10-16 | XMS | Encounter Summary ---
Demographics + + + | Address | [address] | | | [place] [address] | + + + | Home Phone [...] Team Providers + +------+ + | Care Powderer Name | Role | Phone | + +------+ + | Mary Vazquez PA-C | PCP | | + +------+ + Encounter Details +--------+ + + + + | Date | Type | Department | Care Team | Description | +--------+ + + + + | 05/08/ | Procedure | [address]A Intra Op [id number] | | | | 2019 | Pass | [address] | | | | | | [address] [facility] | | | | | | Hospital Admitting | | | | | | Desk Located on the | | | | | | 9th floor | | | | | | [place], [place] | | | | | | [address] | | | +--------+ + + + [...]
--- OUTSIDE RECORDS SUMMARY | ~2019-10-16 | XMS | Encounter Summary ---
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[address] | | | | | deformity of | [address] | [address] | | | | | head | [address] | [place], [place] | | | | | Procedures | [place], [place] | [address] | | | | | REQUEST TO | [address] | Phone: | | | | | SURGERY | Phone: | [phone] | | | | | [address] | [phone] | Fax: | | | | | [place] REPLACE | Fax: | [phone] | | | | | SKULL | [phone] | | | | | | PLATE/FLAP | | | | | | | OH REPAIR | | | | | | | SKULL | | | | | | | DEFECT,UP TO | | | | | | | 5CM [place] | | | | | | | REPAIR SKULL | | | | | | | DEFECT,>5CM | | | +--------+--------+ + + + + Reason for Visit + + + | Reason | Comments | + + + | Follow-up visit | | + + + | Return Patient | | + + + | Postoperative visit [...] | | | deformity of | [address] | [address] | | | | | head | Rd | [place], [place] | | | | | Infection | [place] | [address] | | | | | and | [address] | Phone: | | | | | inflammatory | Phone: | [phone] | | | | | reaction | [phone] | Fax: | | | | | due to other | Fax: | [phone] | | | | | internal | [phone] | | | | | | prosthetic [...] | | | | | | | OH REPLACE | | | | | | | SKULL | | | | | | | PLATE/FLAP | | | | | | | OH REPAIR | | | | | | | SKULL | | | | | | | DEFECT,UP TO | | | | | | | 5CM [place] | | | | | | | REPAIR SKULL | | | | | | | DEFECT,>5CM | | | +--------+--------+ + + + + Encounter Details +--------+---------+ + + + | Date | Type | Department | Care Team | Description | +--------+---------+ + + + | 07/28/ | Office | Neurosurgery at | | History of | | 2019 | Visit | [facility] [address] | | cranioplasty | | | | [facility] | | (Primary Dx) | | | | [facility], | | | | | | | | | | | | floor [place], [place] | | | | | | [address] | | | | | | [phone] | | | +--------+---------+ + + + [...] + + + | Blood Pressure | 118/62 | 07/28/2018 10:38 AM | | | | | PDT [...] 49.4 kg (108 lb 14.4 | 07/28/2018 10:38 AM | | | | oz) | PDT | | + + + + + | Height | 149.9 cm (4' 11") | 07/28/2018 10:38 AM | | | | | PDT | | + + + + + | Body Mass Index | 22 | 07/28/2018 10:38 AM | | | | | PDT [...] documented as of this encounter Progress Notes Joseph Shah PA - 07/28/2018 10:30 AM PDT NEUROLOGICAL SURGERY PROGRESS NOTE-POST OP Author: JOSEPH SHAH PA-C Attending: Taran Cha MD Procedure Performed: ENT/Plastics: Removal of cranioplasty by Neurosurgical service, elevation of an anterior flap approximate ly 25 x 8 cm undermining with a galeatomy of the posterior incision approximately 25 x 3 x 5 cm and then advancement and closure of the craniotomy site. Neurosurgery: Explant of cranioplasty; one epidural swab sent for culture. Date of Procedure: 07/11/18 Subjective: Cielo Bell is a 68 y.o. 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 Most recently, she underwent synthes cranioplasty (05/08/18) with rotational flap perform ed by Dr Ata White. She represented with wound dehiscence managed with over sewing of the wou nd by ENT (05/14-05/17). Unfortunately, Ms Bell again presented for medical attention afte r her son noticed recurrent skin opening with cranioplasty exposure. She was admitted to jhonathan rosurgery service on 07/10 and underwent explant of her cranioplasty and wound closure by ENT the following day. She was discharged to home on 07/13. Ms Bell's surgical culture was notable for growth of staph epidermidis. As such, we consulted her ID physician who recomme nded return to clinic as able to coordinate for evaluation. Ms Bell was seen earlier thi s morning by ENT and will see Dr Chandler from ID after this appointment. Ms Bell reports that she's doing well. She denies pain/discomfort at the surgical wound. No fevers, chills. Past Medical History: Diagnosis Date Abnormal LFTs (liver function tests) CAD in [place] artery s/p NSTEMI 12/27/2014; status post stent placement in the mid LAD Chronic pain COPD on oxygen at night Essential hypertension GERD (gastroesophageal reflux disease) Goiter Hemorrhagic stroke (HCC) 2007 aneurysm MRSA (methicillin resistant staph aureus) culture positive post cariotomy for SAH Otitis media recent abx preadmit PONV (postoperative nausea and vomiting) Subarachnoid hemorrhage due to ruptured aneurysm (HCC) 2007 Tobacco dependence acetaminophen 325 mg oral tablet, Take 1-2 tablets by mouth every four hours as needed. Ind ications: Pain aspirin EC 81 mg oral tablet,delayed release (DR/EC), Take 1 tablet by mouth once daily. Do not restart aspirin until 2 weeks after surgery-07/25/18 atorvastatin 80 mg oral tablet, Take 80 mg by mouth once daily. ipratropium-albuterol 0.5 mg-3 mg(2.5 mg base)/3 mL inhalation solution for nebulization, I nhale 3 mL two times daily. metoprolol succinate 50 mg oral tablet extended release 24 hr, Take 50 mg by mouth once chauncey ly. nicotine 21 mg/24 hr transdermal patch 24 hour, Apply 1 patch to skin once daily. nitroglycerin 0.4 mg sublingual tablet, sublingual, Place 0.4 mg under tongue every five mi nutes as needed for chest pain. Place under tongue and allow to dissolve. Administer every 5 minutes, max of 3 doses in 15 minutes. polyethylene glycol 17 gram oral powder in packet, Mix 1 packet and take orally three times daily as needed (1st line - for no BM for 2 days). Indications: constipation (Patient not t aking: Reported on 06/02/2018) spironolactone 25 mg oral tablet, Take 25 mg by mouth once daily. Physical Exam: VS: Ht 1.499 m (4' 11"), Wt 49.4 kg (108 lb 14.4 oz), BP 118/62, BMI 22 kg/(m^2). Facility age limit for growth percentiles is 18 years. General: Awake, alert and oriented to person, place and time HEENT: gaze conjugate, EOM's intact, faces symmetric Language: fluent and articulate without evidence of aphasia or dysarthria Motor: FORBES's, no gait imbalance Derm: surgical incision (photo below); small superficial wound dehiscence IMAGING: No imaging Assessment: Cielo Bell is a 68 y.o. year old female recovering from craniopl asty explant and wound closure by ENT in setting of multiple previous cranioplasties. She, u [facility], demonstrated wound dehiscence after suture removal today. Plan: Discussed recurrent superficial wound dehiscence with Dr White's team. Ultimately, needs defi nitive closure of the wound. Consult to OR in place for mesh cranioplasty. Per my conversa tion with Dr Chandler, ID attending, no pre operative antibiotics indicated. ID advises eddie operative Vancomycin and cefazolin. Left VM with Ms Bell letting her know that no pre op antibiotics will be ordered. Will work with Dr Huber and Dr White on securing operative date for Ms Bell. She is aware she will be contacted early next week with this information. This patient was staffed with the attending physician, who also personally evaluated the lex tient. documented in this encounter Plan of Treatment Not on filedocumented as of this encounter Visit Diagnoses + + | Diagnosis | + + | History of cranioplasty - Primary | + + documented in this encounter
--- OUTSIDE RECORDS SUMMARY | ~2019-10-16 | XMS | Encounter Summary ---
Demographics + + + | Address | [address] | | | [place] [address] | + + + | Home Phone | | + + + | Preferred Language | Unknown | + + + | Marital Status | | + + + | Presybeterian Affiliation | MET | + + + | Race | White | + + + | Ethnic Group | Not or | + + + Author + + + | Author | [facility] | + + + | Organization | [facility] | + + + | [...] Team Providers + +------+ + | Care Client Relations Associate Name | Role | Phone | + [...] [place] | | | | | [facility] | [address] | | | | | Hospital Admitting | [place], [place] | | | | | Desk Located on the | [address] | | | | | 9th floor | [phone] | | | | | [facility] [place] | | | | | | [address] | Josse Reddy MD | | | | | | [address] | | | | | | [place] [facility] | | | | | | [place] [address] | | | | | | [phone] | | | | | | | [...] | | | | | drive from [facility]); 08/11/18; | | | | | 1206 [...] be different from the original. Cielo Bell [id number] Allergies Allergen Reactions Live [place] Tar Hives Betadine [Povidone-Iodine (With Soap)] Rash Cipro [Ciprofloxacin] Nausea and Vomiting Codeine Hcl Nausea and Vomiting Sulfa (Sulfonamide Antibiotics) Erythema Past Surgical History Procedure Laterality Date Partial thyroidectomy Right Hysterectomy Bladder suspension 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 Machine Driller shunt Tympanoplasty Right 1987 Lumpectomy of left breast 1978 Coronary stent placement 12/28/2014 status post stent placement in the mid LAD Removal of fiber optic central office installer shunt Cholecystectomy Temp: 35.9 C (96.6 F) [...] di fferent from the original. Cielo Bell [id number] Allergies Allergen Reactions Live [place] Tar Hives Betadine [Povidone-Iodine (With Soap)] Rash [...] gland Goiter Skull defect Coronary arteriosclerosis in [place] artery Acute ksb-BE-mikqyxden myocardial infarction (HCC) Continuous tobacco abuse Hyperglycemia Draining postoperative wound Encounter for long-term (current) use of antibiotics Osteomyelitis (HCC) Acute osteomyelitis of cranium (HCC) Tobacco dependence Past Surgical History Procedure Laterality Date Partial thyroidectomy Right Hysterectomy Bladder suspension 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 Machine Driller shunt Tympanoplasty Right 1987 Lumpectomy of left breast 1979 Coronary stent placement 12/28/2014 status post stent placement in the mid LAD Removal of fiber optic central office installer shunt Cholecystectomy Current Medication List Name Sig [...] Date RATE 94 12/04/2017 ATRIALRATE 93 12/04/2017 IL 155 12/04/2017 QRS 100 12/04/2017 QT 352 [...] infarction. NSR. Summary: -- Echo (03/02/17 - [facility]): TDS, EF 35-40%, apical 1/3 is aneurysmal, with akinesis in focal a reas of dyskinesis. Grade 1 diastolic dysfunction. Normal RV size and function. Mild AI -- Cardiac Cath (09/15/16): Left ventricular end-diastolic pressure 25. LM-normal. Proximal- mid LAD with patent stents, 40% ISR, FFR 0.85. LCx-normal, OM2-20%. RCA proximal-20%, mid-30 % -- Lexiscan Cardiolite stress test (07/27/16-[facility]): Severe LV enlargement, marked scarring (co mprising approximately 60% of the entire LV) of the entire anterior, anteroseptal, mid and d istal inferior, inferoseptal, inferolateral and anterolateral segments with no evidence of i schemia, EF 16% -- Echo (12/28/14-[facility]): EF 54%, apical hypokinesis, grade 1 diastolic dysfunction, mild AI -- Cardiac Cath / PCI (12/28/14 - [facility]): LVEDP 35, LM-normal, mid LAD- occluded [...] LAD 12/2015) medically managed cardiac stents past [place] Last [place]: > 1 year valvular pr oblems/murmurs AR [...] Regular Rate: Normal MC/ANE PreOp Note - Florectia He RN - 04/25/2018 9:58 AM PST ROS: HPI: Prior Anesthetic Problems: Yes PONV Pulmonary: 50 year smoking hx; declines use of inhalers, oxygen cough chronic Cardiovascular: Within Defined Limits except as noted below Functional Capacity: Low hypertension well cont rolled CAD Sx GI/Hepatic: Within Defined Limits except as noted below no GERD Renal: Within Defined Limits except as noted below 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 Past medical [...] Zero Most recent H&P reviewed, located under Smarty Ring encounter tab, Pre-Operative Medicine Clinic v isit [...]
--- OUTSIDE RECORDS SUMMARY | ~2019-10-16 | XMS | Encounter Summary ---
Demographics + + + | Address | [address] | | | [place] [address] | + + + | Home Phone [...] + + + | Author | [facility] | + + + | Organization | [facility] | + + + | [...] Team Providers + +------+ + | Care Copyholder Name | Role | Phone | + [...] | 6A Intra Op 3181 | Magnolia Dieog MD | RIGHT SYNTHETIC | | 2015 | | [facility] | [address] | CRANIOPLASTY | | | | Rd [facility] | [place], [place] | | | | | Hospital Admitting | [address] | | | | | Desk Located on the | [phone] | | | | | 9th floor | | | | | | [place], [place] | | | | | | [address] | | | +--------+---------+ + + + [...] of major salivary glands Goiter CAD in [place] artery Comment:s/p NSTEMI 12/27/2014; status post stent [...] shortly before that appointment she suffered an NM and was placed on aspirin and Plavix [...] 11/07/2015 11:30 AM NSG FELLOW Neurosurgery at [facility] Destination: Destination: Home Condition on Discharge Good Future Appointments Provider Department Dept Phone [place] 11/07/2015 11:30 AM NSG FELLOW Neurosurgery at [facility] [phone] Neurosurgery Warning Symptoms and Signs If you [...] clinic hours, M-F 7:30-4:30 pm, please call [phone] or after hours call Neurosu rgery resident at [phone] Pain Medications DO NOT restart plavix until [...] Physician: MD Piotr Woods MD Neurosurgery Resident [id number] documented in this encou nter Progress Notes Frances Mcfadden PA - 10/24/2015 11:58 AM PDTFormatting of this note might be differen t from the original. . Neuroscience Intensive Care Unit Team Progress Note NSICU ASSIGNED #[id number] Admission dx: m95.2 1 Days in ICU 1 Days in Hospital Abbreviated HPI / Daily Assessment Cielo Bell is a 65 y/o F smoker w/ hx COPD, CAD w/ NM s/p Stents in Dec 2014, with hx [...] treatment team members Provider Role Ipt Neurosurgery #[id number] Treatment Team Ipt Critical Care Nsicu #[id number] Treatment Team Patient Lines/Drains/Airways Status Active Lines, [...] availabl e. Date of Service: 10/24/2015 ANSON Chattejree [facility] DEPARTMENT: ANE ICU NEURO Place of Service:- Inpatient CSN: [id number] Suggested Modifier: None Suggested CPT: TO WATER CONTROL STATION ENGINEER ANSON Irvin Author:ANSON Chatterjee [facility] [address] [place] [address] Jerzy Saez MD - 10/24/2015 10:36 AM PDT . 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 Seen with PA/FRENCH DRAWER Ashish Mcfadden. Please see their note for details. I reviewed the documented findings, all data and the recent imaging available. Date of Service: 10/24/2015 Author:Jerzy Centeno MD [facility] [address] [place] [address] ommie Bliss - 03/2015 4:28 AM PDT [...] RLB Gram Stain...........: Gram smear performed at [facility]. Culture: Final Report: No growth [...] shortly before that appointment she suffered an NM and was placed on aspirin and Plavix [...] prior to discharge Please page adult resident front desk agent [phone] with questions Tommie Bliss MD, PhD PGY-2, [...] DO Skull Base Fellow Department of Neurosurgery [facility] [place] Georgia Rosado MD - 10/23/2015 7:16 PM PDTFormatting of this note might be different fro m the original. . Neuroscience Intensive Care Unit Attending Progress Note Attending Pager #[phone] Hospital admission dx: m95.2 Days in ICU Days in Hospital Abbreviated HPI / Daily Assessment Cielo Bell is a 65 y/o F smoker w/ hx COPD, CAD w/ NM s/p Stents in Dec 2014, with hx [...] treatment team members Provider Role Ipt Neurosurgery #[id number] Treatment Team Ipt Critical Care Nsicu #[id number] Treatment Team The Advanced Care Note for [...] recent imaging available. Date of Service: 10/23/2015 [facility] DEPARTMENT: ANE ICU NEURO Place of Service:- Inpatient CSN: [id number] Suggested Modifier: None Suggested CPT: TO WATER CONTROL STATION ENGINEER Author:Georgia Rosado MD [address] [address] [place] [address] Cammie Maria MD - 10/22 10:35 AM [...] in bed Cammie Ramos MD Neurosurgery PGY2 [id number] documented in this encounte r H&P Notes Jerzy Centeno MD - 10/23/2015 4:36 PM PDTFormatting of this note might be different fr om the original. . 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 She was seen in neurosurgery clinic for follow up in Dec 2014 sh ortly after her NM. At that clinic appt 12/2014, she was noted to have a Right frontal scre w protrusion. Due to her recent NM and bare metal stent placement, she was [...] thrombosis. Restart home metop and pravastatin. O2 AL N at night. Regular diet, SCDs. Should [...] treatment team members Provider Role Ipt Neurosurgery #[id number] Treatment Team Ipt Critical Care Nsicu #87007 Treatment Team This patient does not have [...] and the recent imaging available. Seen with PA/FRENCH DRAWER Ephraim Mcfadden. Please see their note for details. I reviewed the documented findings, all data and the recent imaging available. Date of Service: 10/23/2015 Author:Jerzy Centeno MD [address] [address] Frances Baldwin PA - 10/23/2015 4:08 PM PDT . 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 She was seen in neurosurgery clinic for follow up in Dec 2014 sh ortly after her NM. At that clinic appt 12/2014, she was noted to have a Right frontal scre w protrusion. 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 CAD in [place] artery s/p NSTEMI 12/27/2014; status post stent placement in the mid LAD Abnormal LFTs (liver function tests) MRSA (methicillin resistant staph aureus) culture positive post cariotomy for SAH Continuous tobacco abuse Past Surgical History Procedure Laterality Date Partial thyroidectomy Right Hysterectomy Cholecystecomy Bladder suspension 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 Relocation Counselor shunt Tympanoplasty Right 1987 Lumpectomy of left breast 1979 Coronary stent placement 12/28/2014 status post stent placement in the mid LAD Allergies Allergen Reactions Boise Tar Hives Betadine [Povidone-Iodine (With Soap)] Unknown [...] treatment team members Provider Role Ipt Neurosurgery #[id number] Treatment Team Ipt Critical Care Nsicu #23727 Treatment Team Patient Lines/Drains/Airways Status Active Lines, [...] e. Date of Service: 10/23/2015 ANSON Chatterjee [facility] DEPARTMENT: [facility] ICU NEURO Place of Service:- Inpatient CSN: [id number] Suggested Modifier: None Suggested CPT: TO WATER CONTROL STATION ENGINEER ANSON Irvin Author:ANSON Chatterjee [address] [id number] signed by ANSON Irvin at 10/23/2015 5:38 [...] Allergies reviewed / updated Allergies Allergen Reactions Boise Tar Hives Betadine [Povidone-Iodine (With Soap)] Unknown [...] of major salivary glands Goiter CAD in [place] artery s/p NSTEMI 12/27/2014; status post stent placement in the mid LAD Abnormal LFTs (liver function tests) MRSA (methicillin resistant staph aureus) culture positive post cariotomy for SAH Past surgery reviewed and updated Past Surgical History Procedure Date Partial thyroidectomy Hysterectomy Cholecystecomy Bladder suspension 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 Relocation Counselor shunt Tympanoplasty 1987 Lumpectomy of left breast [...] Alert and appropriate; nl affect. alert Findings: Ui Software Developer nial nerves 2-12 intact, Motor 5/5 strength [...] to this patient's care. Mable Lee MD [facility] PREOPERATIVE MEDICINE CLINIC AT [facility] 4TH FLOOR DAY STAY [address] [facility] [address] I spent time counseling the pt regarding [...] ice: 10/23/2015 Attending Surgeon: Magnolia Diego MD Leadership Program Internship(s): Antoinette Del Valle MD, PhD Dameon Scanlon [...] shortly before that appointment she suffered an NM and was placed on as pirin and [...] br ought to the operating room on [facility]. She was sedated and intubated without [...] Antoinette Adkins MD, PhD MD XI Woods/NGUYEN /[id number] I, Dr. Magnolia Diego, was the primary surgeon and in the OR during the critical portions of this procedure. There was no complication. 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 She was seen i neurosurgery clinic for follow up in Dec 2014 shortly after her NM. At that clinic appt , she was noted to have a Right frontal screw protrusion. Due to her recent NM and bare metal stent placement, she was [...] the day and she called appropriately during [facility] too. 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 She was seen i neurosurgery clinic for follow up in Dec 2014 shortly after her NM. At that clinic appt , she was noted to have a Right frontal screw protrusion. Due to her recent NM and bare metal stent placement, she was [...] be safer with a bed alarm at [facility] COMFORT/ANXIETY/BEHAVIOR Patient Target: Patient will be free of pain. As evidenced by: Denying pain. Did not require pain medication. 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 Diego [...] skilled PT. 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 She was seen i neurosurgery clinic for follow up in Dec 2014 shortly after her NM. At that clinic appt , she was noted to have a Right frontal screw protrusion. Due to her recent NM and bare metal stent placement, she was [...] of Care / Advance Care NSICU ASSIGNED #[id number] Date: 10/23/2015 Advanced Directives: The patient does not have an advance directive in the EMR. A POLST is not indicated in the EMR. Healthcare Agent(s): Surrogate decision maker has been identified and is : Venessa Gerard (Daughter) . The surrogate decision maker has been listed as the emergency contact within [facility]. Code Status: Current Code Status Date Active Code Status Order ID Comments User Context 10/23/2015 3:47 PM Full Code [id number] Antoinette Adkins MD,PhD Inpatient Code History: Code Status History Date Active Date Inactive Code Status Order ID Comments User Context 10/23/2015 6:46 AM 10/23/2015 3:47 PM Full Code [id number] Tommie Bliss Inpatient 06/07/2014 9:11 AM 06/08/2014 6:06 PM Full Code [id number] Angel Mazariegos MD Inpatient 06/07/2014 6:13 AM 06/07/2014 9:11 AM Full Code [id number] Beny Cruz MD Inpatient 05/13/2008 4:34 PM 05/14/2008 7:21 PM Full Code [id number] Alli Junior MD Inpatient 04/11/2008 5:27 PM 04/13/2008 11:04 PM Full Code [id number] Saskia Nguyen RN Inpatient 03/03/2008 1:17 PM 03/08/2008 10:09 PM Full Code [id number] To Prieto MD Inpatient 03/03/2008 1:16 PM 03/03/2008 1:16 PM DNR/DNI [id number] To Prieto MD Inpatient 03/03/2008 12:06 AM 03/03/2008 1:16 PM Full Code [id number] Marlon Mcintyre MD Inpatient 10/30/2007 10:53 PM 11/02/2007 8:59 PM Full Code [id number] Antoinette Saenz RN Inpatient 10/18/2007 5:01 AM 10/30/2007 10:53 PM Full Code [id number] Norberto Bolaños Inpatient Narrative Summary of Conversation: [...] & Bj n Note - Haven Wilson [facility] - 10/23/2015 5:12 PM PDTAssociated Problem(s): HTN [...] 4:51 PM PDTAssociated Problem(s): Skull defect[facility]; Dr. Diego [...] Skull defect Assessment & Plan -[facility]; Dr. Diego [...] pulmonary disease (HCC) 10/24/2007 SAH (subarachnoid hemorrhage) ([facility]) 10/24/2007 HTN (hypertension) 10/24/2007 Chronic pain 10/24/2007 Otitis media 10/24/2007 Communicating hydrocephalus 03/08/2008 Benign neoplasm of major salivary gland 06/06/2014 Goiter 06/06/2014 Coronary arteriosclerosis in [place] artery 03/06/2015 Acute jlr-LH-xvifuvzkh myocardial infarction ([facility]) 12/28/2014 Resolved Ambulatory Problems Diagnosis Date Noted GERD (gastroesophageal reflux disease) 10/24/2007 Past Medical History Diagnosis Date Essential hypertension Tobacco dependence COPD CVA (cerebral vascular accident) ([facility]) 2007 Subarachnoid hemorrhage due to ruptured aneurysm ([facility]) 2007 Benign neoplasm of major salivary glands CAD in [place] artery Abnormal LFTs (liver function tests) MRSA (methicillin resistant staph aureus) culture positive Continuous tobacco abuse Past Surgical History Procedure Laterality Date Partial thyroidectomy Right Hysterectomy Cholecystecomy Bladder suspension 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 Relocation Counselor shunt Tympanoplasty Right 1987 Lumpectomy of left breast 1979 Coronary stent placement 12/28/2014 status post stent placement in the mid LAD Allergies Allergen Reactions Boise Tar Hives Betadine [Povidone-Iodine (With Soap)] Unknown [...] medication information: none given Functional Epidural: No TIRE REGROOVING MACHINE OPERATOR: No Respiratory: RR: 18, O2 Sat: 94 [...] PACU Contact Name: Linda (daughter) Contact Number: [phone] Family contacted: Yes Comment: Update given to [...] medication information: none given Functional Epidural: No TIRE REGROOVING MACHINE OPERATOR: No Respiratory: RR: 24, O2 Sat: 96 %, O2 Delivery: Oxymask Breath Sounds: WDL Except DARIEN: clear LLL: diminished RUL: clear RLL: diminished MELISSA No Comment: Cardiac: BP: 134/66 mmHg HR: 77 GI: Nausea/Vomiting Status: No Signs/Symptoms: Interventions: Assessment: Comments: : Last void: via goins catheter in OR, catheter removed prior to PACU Contact Name: Linda (daughter) Contact Number: [phone] Family contacted: Yes Comment: Update given to [...] [facility] | [address] | [place], [place] | | | MISTY POINT OF CARE | [address] | [address] | | | TESTS | | | [...] | + + + + + | [facility] | [address] | [place] [address] | | | SERVICES, CORE | RAMSES [...] (H) | 60 - 99 mg/dL | [facility] - | | | GLUCOSE, [...] + + + | [facility]LE [facility] | [address] | [place], [place] | | | MISTY [address] RUN OF [facility] | [address] | [address] | | | TESTS | | | [...] [facility] | [address] | [place], [place] | | | RAÚL JAY OF OLIVIA | [address] | [address] | | | TESTS | | | [...] [facility] | [address] | [place], [place] | | | MISTY, POINT OF CARE | [address] | [address] | | | TESTS | | | | + + + + + OPERATION RECORD (10/24/2015 8:27 AM PDT) + + | Transcriptions | + + | Magnolia Diego MD - 10/23/2015 4:36 PM PDT Date of Service: 10/23/2015 Attending | | Surgeon: Magnolia Diego MD Leadership Program Internship(s): Antoinette Del Valle MD, PhD Raed B [...] that appointment she | | suffered an NM and was placed on aspirin and Plavix [...] was brought to the operating room on [facility]. She was | | sedated and [...] 10/23/2015 15:01:44DT: 10/23/2015 16:36:58Job #: | | [id number], Dr. Magnolia Diego, was the primary surgeon and in the OR during the | | critical portions of this procedure. There was no complication.Magnolia Diego MDOHSU 7C | | [id number] [facility] [address]/dwg0jeRuueucbd, [place] [id number] | |The new synthetic skull flap was [...] |KLK/MODL | | | | | | /[id number] | | | |I, Dr. Magnolia Diego, was the primary surgeon and in the OR during the critical portions of this procedure. There was no complication. | | | | | | | |Magnolia Diego MD | |[facility] NSI | |[address] [facility] [address] | |[id number]/[id number] | |[place] [address] | |[phone] | + + CAPILLARY BLOOD GLUCOSE (NO [...] [facility] | [address] | [place], [place] | | | RAÚL JAY OF [place] | [address] | [address] | | | TESTS | | | [...] [facility] | [address] | [place] [address] | | | JOHNSON, RYAN | PARK [...] | + + + + + | [facility] | [address] | [place] [address] | | | SERVICES, CORE | RAMSES [...] | | | LABORATORY | | | U[place]AN | | | SERVICES, | | | [...] | + + + + + | [facility] | [address] | [place] [address] | | | SERVICES, CORE | RAMSES [...] + + | MICHELLE [facility] | [address] [facility] | [place], [place] | | | [facility] | [facility] | [address] | | | TESTS | | | [...] | | PACU, cooper Antoinette Adkins MD,PhD [id number] | | + + + RENAL FUNCTION [...] | | | LABORATORY | | | [place]AN | | | SERVICES, | | | [...] | + + + + + | [facility] | [address] | [place] [address] | | | SERVICES, CORE | RAMSES [...] + + + + + | [facility]LE [facility] | [address] | [place] [address] | | | SERVICES, CORE | RAMSES [...] | + + + + + | [facility] | [address] | [place] [address] | | | SERVICES, RYAN | RAMSES [...] | | | LABORATORY | | | UGANDAN | | | SERVICES, | | | [...] | + + + + + | [facility] | [address] | [place] [address] | | | SERVICES, CORE | RAMSES [...] [facility] | [address] | [place], [place] | | | RAÚL JAY OF CARE | [address] | [address] | | | TESTS | | | [...] | + + + + + | [facility] | [address] | [place] [address] | | | SERVICES, CORE | RAMSES [...] | + + + + + | [facility] | [address] | [place] [address] | | | SERVICES, CORE | PARK [...] | + + + + + | [facility] | [address] | [place] [address] | | | SERVICES, CORE | RAMSES [...] | | | LABORATORY | | | UGANDAN | | | SERVICES, | | | [...] the MDRD equation recommended by the | [facility] | | National Kidney Disease Education Program. [...] | + + + + + | [facility] | [address] | [place] [address] | | | JOHNSON, RYAN | RAMSES [...]
--- OUTSIDE RECORDS SUMMARY | ~2019-10-16 | XMS | Encounter Summary ---
Demographics + + + | Address | [address] | | | [place] [address] | + + + | Home Phone [...] Team Providers + +------+ + | Care Screen Handler Name | Role | Phone | + +------+ + | Mary Vazquez PA-C | PCP | | + +------+ + Encounter Details +--------+ + + + + | Date | Type | Department | Care Team | Description | +--------+ + + + + | 07/10/ | Procedure | Diagnostic Imaging | | | | 2018 | Pass | Services at [facility] | | | | | | [address] | | | | | | Nora Funes [facility] | | | | | | [facility], [address] [place] [address] | | | | | | [place], [place] | | | | | | [address] | | | | | | [phone] | | | +--------+ + + + [...]
--- OUTSIDE RECORDS SUMMARY | ~2019-10-16 | XMS | Encounter Summary ---
Demographics + + + | Address | [address] | | | [place] [address] | + + + | Home Phone | | + + + | Preferred Language | Unknown | + + + | Marital Status | | + + + | [employer] Affiliation | Unknown | + + + | Race | White | + + + | Ethnic Group | Not or | + + + Author + + + | Author | [facility] | | | and [place] | + + + | Organization | [facility] | | [...] Team Providers + +------+ + | Care Ring Spinner Name | Role | Phone | + +------+ + | Lance Pandya DO | PCP | | + +------+ + Reason for Visit Auth/Cert +--------+--------+ + + + + | Status | Reason | Specialty | Diagnoses / | Referred By | Referred To | | | | | Procedures | Contact | Contact | +--------+--------+ + + + + | Closed | | | Diagnoses | | | | | | | Chest pain, | | | | | | | cardiac | | | | | | | chest pain | | | | | | | chest pain | | | | | | | Procedures | | | | | | | CV | | | | | | | DIAGNOSTIC | | | | | | | CARDIAC CATH | | | +--------+--------+ + + + + Encounter Details +--------+---------+ + + + | Date | Type | Department | Care Team | Description | +--------+---------+ + + + | 12/28/ | Surgery | [facility] | Chana Rangel, | CV DIAGNOSTIC | | 2014 | | MED CTR CV INTRA OP | MD [address] | CARDIAC CATH | | | | [address] | [place] | | | | | [place], [place] | [address] | | | | | [address] | | | | | | [phone] | | | +--------+---------+ + + + [...] + + + | Blood Pressure | 132/76 | 12/28/2014 12:00 PM | | | | | PST | | + + + + + | Pulse | 73 | 12/28/2014 12:23 PM | | | | | PST | | + + + + + | Temperature | 36.5 C (97.7 F) | 12/28/2014 11:00 AM | | | | | PST | | + + + + + | Respiratory Rate | 21 | 12/28/2014 11:00 AM | | | | | PST | | + + + + + | Oxygen Saturation | 95% | 12/28/2014 12:23 PM | | | | | PST | | + + + + + | Inhaled Oxygen | - | - | | | Concentration | | | | + + + + + | Weight | 53.6 kg (118 lb 2.7 | 12/27/2014 11:00 PM | | | | oz) | PST | | + + + + + | Height | 149.9 cm (4' 11") | 12/27/2014 11:00 PM | | | | | PST | | + + + + + | Body Mass Index | 23.96 | 12/27/2014 11:00 PM | | | | | PST [...] documented as of this encounter Discharge Summaries Chana Rangel MD - 12/29/2014 8:59 AM PSTFormatting of this note might be different fr om the original. DISCHARGE SUMMARY PATIENT NAME/: Cielo Bell, (1950) DATE OF ADMISSION: 12/27/2014 DATE OF DISCHARGE: 12/29/2014 DISCHARGING PHYSICIAN: Chana Rangel MD ADMITTING DIAGNOSIS: NSTEMI (non-ST elevated myocardial infarction) PRIMARY CARE PROVIDER: Lance Pandya DISPOSITION: Discharge to home BRIEF HOSPITAL COURSE: Please see the history and physical at the time of admission. Briefly, Ms. Bell is a 64 y.o. female who was admitted on 12/27/2014 with NSTEMI (non-ST elevated myocardial infarc tion) . She is referred by Dr [place] She presented to the ER at [facility]. She awoke this AM at 7 and had mid sternal chest reny n radiating to the left chest. She took antacids and 2 doses of Pepto Bismol. She also had diaphoresis. She did not do anything all day. The evening of admission her son went by and f ound her to still be having chest pain. He told her she needed to go to the ER. In the ER she had Q waves in V1 - V4. These were new compared to an ECG from Oct. She was still having chest pain. She had been in the ER with "heartburn" 2 weeks ago. She had recently undergone an evaluati on with colonoscopy that was only remarkable for diverticulosis. She was treated with NTG. Heparin and aspirin were started. She arrived here sill having chest pain. She was taken to the lab rn. successful PCI of the LAD Bare metal used due to the history of cerebral aneurysms She had one dark bowel movement. It was guaiac +. She was started on Famotidine 20 mg BID . CONCLUSIONS: 1. Elevated EDP 35 2. No gradient on pullback 3. Normal Left main 4. 100% Mid LAD 5. No residual stenosis and JOÃO 3 flow restored 6. Minimal plaque of the LCX 7. 20-30% mid RCA with collaterals to the LAD CLINICAL IMPRESSIONS AND RECOMMENDATIONS: The patient should remain on dual antiplatelet therapy for at least a month ASA lifetime Chest pain was immediately relieved. She was counseled for smoking cessation and she was well motivated. She was advised to not smoke with the patch on as this could result in IA. She was able to tolerate nebulizer. She had refused to fill the Rx for inhalers due to cos t. She was ambulated and had no further chest pain. She would enter cardiac rehab if we can find a program close to her home. She had a loose cough productive of sputum. Gram stain showed multiple organisms. An anti biotic was started. A culture for MRSA was done and the first on is negative. Echo: [facility] ECHOCARDIOGRAM REPORT STUDY DATE: 12/28/2014 PATIENT NAME: Cielo Bell : 1950 PCP: Lance Pandya CLINICAL HISTORY/DIAGNOSIS: IA A transthoracic echocardiogram with M-mode, pulsed-wave and color Doppler was performed wit h standard views obtained. The technical quality of this examination is adequate. Parasterna l views are suboptimal. The heart rhythm during the echo is normal with heart rate in the 70 s to 80s. The M-mode, two-dimensional, color flow and spectral Doppler data were reviewed an d support the following interpretation: Interpretation: Left Atrium: Left atrial size is normal. Left ventricle: Left ventricular size is normal with normal wall thickness and mild apical hypokinesis but overall preserved left ventricular systolic function. The estimated ejection fraction is 54%. Grade 1 left ventricular diastolic dysfunction. Aortic root: Aortic root is normal. Right Atrium: Right atrial sizes normal. Right ventricle: Right ventricular size is normal with normal wall thickness and normal ri ght ventricular systolic function. Pericardium: Pericardium is normal. Pulmonary artery: Pulmonary artery is normal. Aortic valve: Aortic valve is trileaflet and opens normally. there is mild insufficiency n oted. Mitral valve: Mitral valve is normal. Pulmonic valve: Pulmonic valve is normal. Tricuspid valve: Normal with trace insufficiency and peak velocity consistent with normal R VSP. Vena cava: The inferior vena cava is normal. There is greater than 50% inspiratory collaps e of the IVC. IMPRESSIONS: 1. Normal LV size and mild apical hypokinesis with overall preserved systolic function with LVEF 54%. 2. Mild aortic insufficiency without significant stenosis. 3. Normal pulmonary pressures. 4. Grade 1 LV diastolic dysfunction. 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 PROBLEM LIST: Patient Active Problem List Diagnosis Date Noted POA NSTEMI (non-ST elevated myocardial infarction) 12/28/2014 Yes COPD (chronic obstructive pulmonary disease) 12/28/2014 Yes PVD (peripheral vascular disease) 12/28/2014 Yes H/O cerebral aneurysm repair 12/28/2014 Yes Smoking addiction Yes Smoking addiction Yes Smoking addiction Yes Smoking addiction Yes VITALS: Temp: 37 C (98.6 F) BP: 130/83 mmHg Pulse: 82 Resp: 25 SpO2: 92 % WEIGHT: Today's Weight: 53.8 kg (118 lb 9.7 oz) Admit Weight: 53.6 kg (118 lb 2.7 oz) BRIEF EXAM TODAY: General Appearance - alert, in no distress Heart - regular rate and rhythm, S1 and S2 normal, no murmur, rub, or gallop. Lungs - clear to auscultation bilaterally Musc/Skel - moves all extremities Extremities - no cyanosis. no significant edema Neurologic - no focal deficits Sheath site - some echemosis and tenderness CONSULTATION: none DIAGNOSTIC STUDIES: Imaging: ECG: Selected Labs: Recent Labs Lab 12/29/14 0408 12/28/14 0448 WBC 11.1* -- HGB 11.8 -- HCT 35.8 -- PLT 181 -- NA 141 134* K 3.7 3.9 BUN 16 15 CREA 0.81 0.77 GLU 97 117* CALCIUM 8.5 8.7 INR 1.01 -- Recent Labs Lab 12/29/14 0408 12/28/14 0745 12/28/14 0448 12/28/14 0007 TROPONINI 75.39* >100.00* -- 28.90* HDL -- -- 46 -- LDL -- -- 130 -- TRIG -- -- 143 -- Recent Results (from the past 24 hour(s)) Culture, Respiratory, Lower, Smear Collection Time: 12/28/14 12:36 Result Value Ref Range Culture Culture in progress... Culture 3+ Usual Respiratory Naomi Gram Stain Result 3+ White Blood Cells Gram Stain Result 1+ Epithelial cells Gram Stain Result 3+ Gram positive cocci Gram Stain Result 2+ Gram negative diplococci Gram Stain Result 1+ Gram negative rods Basic Metabolic Panel Collection Time: 12/29/14 4:08 Result Value Ref Range NA 141 136-149 mmol/L K 3.7 3.5-5.1 mmol/L CL 110 (H) 98-109 mmol/L CO2 24 24-31 mmol/L ANION GAP 7 3-16 mmol/L GLUCOSE 97 70-109 mg/dL BUN 16 7-18 mg/dL Creatinine, Serum/Plasma 0.81 0.60-1.30 mg/dL eGFR if not >60 >=60 mL/min/1.73m2 CALCIUM 8.5 8.3-10.5 mg/dL BUN/CREA 19.8 CBC no Differential Collection Time: 12/29/14 4:08 Result Value Ref Range WBC 11.1 (H) 4.0-11.0 K/uL RBC 3.79 3.70-5.20 M/uL Hgb 11.8 11.5-16.0 g/dL Hct 35.8 34.0-47.0 % MCV 94.5 83.0-101.0 fL MCH 31.1 28.0-35.0 pg MCHC 32.9 32.0-36.0 g/dL RDW-CV 13.7 <15.0 % Platelet Count 181 140-440 K/uL MPV 8.9 fL Protime INR Collection Time: 12/29/14 4:08 Result Value Ref Range PROTIME 13.8 11.3-13.9 seconds INR 1.01 0.90-1.10 Troponin I Collection Time: 12/29/14 4:08 Result Value Ref Range TROPONIN I 75.39 (HH) <0.06 ng/mL MEDS: Discharge Medications New Medications Details albuterol-ipratropium 2.5-0.5 mg/3 mL Soln Take 3 mLs by nebulization 3 times daily. aka: DUONEB aspirin 81 mg chewable tablet Take 1 tablet by mouth Daily. atorvaSTATin 40 mg tablet Take 1 tablet by mouth nightly. aka: LIPITOR clopidogrel 75 mg tablet One a day till all are gone aka: PLAVIX doxycycline 100 mg tablet Take 1 tablet by mouth 2 times daily for 10 days. aka: VIBRAMYCIN famotidine 20 mg tablet Take 1 tablet by mouth 2 times daily. aka: PEPCID lisinopril 2.5 MG tablet Take 1 tablet by mouth Daily. aka: PRINIVIL,ZESTRIL metoprolol tartrate 25 mg tablet Take 1 tablet by mouth 2 times daily. aka: LOPRESSOR nicotine 21 mg/[address] 1 patch onto the skin Daily as needed for up to 30 days. aka: NICODERM nitroglycerin 0.[address] 1 tablet under the tongue every 5 minutes as needed for Chest pain. aka: NITROSTAT spironolactone 25 mg tablet Take 0.5 tablets by mouth Daily. aka: ALDACTONE Rx sent in for nebulizer PATIENT INSTRUCTIONS: ACTIVITY: No driving, or strenuous exercise for until cleared DIET: cardiac diet FOLLOW-UP: Follow up with Dr Rangel in a month (or close to that) Primary in a week.. We will call and make a referral to Cardiac rehab Time spent on discharge planning: greater than 30 minutes Electronically signed by Chana Rangel MD at 09/2014 10:32 AM PSTdocumented in this encounter Discharge Instructions Instructions Chana Rangel MD - 12/29/2014For 24 Hours: Do NOT drive For 2 days: Do NOT lift more than 1 pound with the affected arm. Keep the wrist dry, clean. No dishwashing, hot tub. Avoid wrist movement such as bike riding, golf. For 5 days: Avoid vigorous exercise that uses the affected arm. Pain It is common to be sore for 1 to 2 days at the catheter insertion site. You may take ac etaminophen (Tylenol) for pain relief. Follow the dosing instructions on the package. Take your regular aspirin as prescribed. Do NOT take other products that contain aspirin. Do NOT take other anti-inflammatory pr oducts such as ibuprofen (Advil, Motrin) or naproxen (Aleve, Naprosyn). They may cause incr eased bleeding. If you have severe pain at the catheter site, call your provider. Site Care You may remove the dressing or bandage the day after your procedure. Keep site clean and dry. Clean the site gently with mild soap and water. Re-apply a cl joshua Band-Aid, if needed. It is normal to have a small bruise or lump at the insertion site. You may shower the day after your procedure, but avoid tub baths, hot tubs or swimming f or the next 2 days. Inspect the site everyday for infection. (see " When to Call for Help" on the next page ) Fluids Drink an extra 2 quarts of water, in addition to your normal fluid intake in the next 24 hours. This helps the body eliminate the contrast dye given to you during your procedure. If you are on a fluid restriction follow orders from your physician. When to Call for Help If you have bleeding at the site, apply pressure to the site with clean fingers for 10 rosemarie silvina. If the bleeding does not stop in 10 minutes, or there is a large amount of bleeding, eagle l 9-1-1. Continue to apply pressure over the site until help arrives. If the bleeding stops, sit quietly for 2 hours while you keep the affected wrist straigh t. Call the dancer or choreographer who did your procedure as soon as possible. Other Concerns Call the dancer or choreographer who did your procedure if you have: Any of these Signs of Infection: Redness Fever higher than 101.5 degrees F or 38.6 degrees C Change in the bruise or lump. Numbness in your arm or wrist. Severe pain that is not relieved by Tylenol. Follow-up Care Continue your prescribed medications unless instructed otherwise. Follow-up with your primary health care provider and dancer or choreographer after your procedure, as instructed. If you have questions or concerns about your cardiac catheterization procedure, call the number below. AttachmentsThe following attachments cannot be sent through Care Everywhere.CANCER, PREVENT ING ([place])COPD, WHAT IS ([place])HEART ATTACK, SYMPTOMS OF A ([place])LIVING WELL AFTER A HEART ATTACK ([place])LUNG DISEASE, CHRONIC: CONTROLLING STRESS ([place])LUNG DISEASE, CH RONIC: STARTING AN EXERCISE PLAN ([place])LUNG DISEASE, CHRONIC: TIPS FOR QUITTING SMOKING ( [place])QUESTIONS FOR YOUR HEALTH CARE TEAM, HEART ATTACK ([place])SMOKE FREE,BENEFITS OF LIVING ([place])SMOKE,WHY DO YOU ([place])SMOKING CESSATION ([place])SMOKING WITHDRAWAL, COPING WITH ([place])SMOKING,GETTING SUPPORT FOR QUITTING ([place])SMOKING,HEALTH EFFEC TS OF ([place])SMOKING,PLANNING TO QUIT ([place])SMOKING,TIPS FOR QUITTING (CARDIOVASCUL AR) ([place])EXERCISING AFTER A HEART ATTACK ([place])documented in this encounter Medications at Time of Discharge + + + +---------+ + + | Medication | Sig | Dispensed | Refills | Start | End Date | | | | | | Date | | + + + +---------+ + + | aspirin 81 mg | Take 1 tablet by | 30 | 0 | 12/30/19 | | | chewable tablet | mouth Daily. | tablet | | 15 | 6 | + + + +---------+ + + | atorvaSTATin | Take 1 tablet by | 90 | 3 | 12/30/19 | | | (LIPITOR) 40 mg | mouth nightly. | tablet | | 15 | 6 | | tablet | | | | | | + + + +---------+ + + | clopidogrel | One a day till all | 30 | 0 | 12/30/19 | | | (PLAVIX) 75 mg | are gone | tablet | | 15 | 6 | | tablet | | | | | | + + + +---------+ + + | doxycycline | Take 1 tablet by | 20 | 0 | 12/30/19 | | | (VIBRAMYCIN) 100 mg | mouth 2 times daily | tablet | | 15 | 5 | | tablet | for 10 days. | | | | | + + + +---------+ + + | famotidine | Take 1 tablet by | 60 | 4 | 12/30/19 | | | (PEPCID) 20 mg | mouth 2 times daily. | tablet | | 15 | 6 | | tablet | | | | | | + + + +---------+ + + | lisinopril | Take 1 tablet by | 90 | 3 | 12/30/19 | | | (PRINIVIL,ZESTRIL) | mouth Daily. | tablet | | 15 | 6 | | 2.5 MG tablet | | | | | | + + + +---------+ + + | metoprolol | Take 1 tablet by | 60 | 11 | 12/30/19 | | | tartrate (LOPRESSOR) | mouth 2 times daily. | tablet | | 15 | 6 | | 25 mg tablet | | | | | | + + + +---------+ + + | nicotine | Place 1 patch onto | 28 | 0 | 12/30/19 | | | (NICODERM) 21 mg/24 | the skin Daily as | patch | | 15 | 5 | | hr | needed for up to 30 | | | | | | | days. | | | | | + + + +---------+ + + | nitroglycerin | Place 1 tablet under | 100 | 12 | 12/30/19 | | | (NITROSTAT) 0.4 mg | the tongue every 5 | tablet | | 15 | 6 | | SL tablet | minutes as needed | | | | | | | for Chest pain. | | | | | + + + +---------+ + + | spironolactone | Take 0.5 tablets by | 30 | 1 | 12/30/19 | | | (ALDACTONE) 25 mg | mouth Daily. | tablet | | 15 | 6 | | tablet | | | | | | + + + +---------+ + + documented as of this encounter Progress Notes Chana Rangel MD - 12/29/2014 8:05 AM PSTFormatting of this note might be different fr om the original. CARDIOLOGY PROGRESS NOTE on 12/29/2014 [facility] Pt. Name/Age/: Cielo Nurard 64 y.o. 1950 Med. Record Number: [id number] Primary Care Physician: Lance Pandya Date of admission: 12/27/2014 Hospital Day: 3 ASSESSMENT AND PLAN: CHIEF PROBLEMS: Active Hospital Problems Diagnosis NSTEMI (non-ST elevated myocardial infarction) COPD (chronic obstructive pulmonary disease) PVD (peripheral vascular disease) H/O cerebral aneurysm repair Smoking addiction Smoking addiction Smoking addiction Smoking addiction Resolved Hospital Problems Diagnosis No resolved problems to display. Code Status: No Order OTHER and ALL PROBLEMS: Patient Active Problem List Diagnosis Smoking addiction Smoking addiction Smoking addiction Smoking addiction NSTEMI (non-ST elevated myocardial infarction) COPD (chronic obstructive pulmonary disease) PVD (peripheral vascular disease) H/O cerebral aneurysm repair PLAN Reviewed discharge Disposition: home Brief Summary Hospitalization: see discharge DISCUSSION: See discharge SUBJECTIVE: The patient chart and medications were reviewed and the patient was seen and examined. OBJECTIVE: Vitals: Temp: 37 C (98.6 F) BP: 130/83 mmHg Pulse: 82 Resp: 25 SpO2: 92 % Min/Max Temp past 24 hours: Temp Av.9 C (98.4 F) Min: 36.5 C (97.7 F) Max: 37.5 C (99.5 F) Intake/Output Summary (Last 24 hours) at 12/29/14 0806 Last data filed at 12/29/14 0400 Gross per 24 hour Intake 576 ml Output 1275 ml Net -699 ml Wt. Admission: Weight: 53.6 kg (118 lb 2.7 oz) Wt. Current: Weight: 53.8 kg (118 lb 9.7 oz) Physical Examination: Constitutional: No acute distress, non-toxic appearance Eyes: conjunctiva normal. PERRL HEENT: Supple, normal ROM and without adenopathy. Oropharynx moist, no pharyngeal exudate s. Respiratory: No respiratory distress, normal breath sounds, no rales, minimal wheezing Cardiovascular: Normal rate, normal rhythm, no murmurs, no gallops, no rubs. Musculoskeletal: No edema, no tenderness, no deformities. Back- no tenderness Integument: Well hydrated, no rashes or concerning skin lesions Neurologic: Alert & oriented x 3, no focal deficits noted Psychiatric: Speech and behavior appropriate Central Lines: Absent Benavides Catheter: Absent Cath site some bruising Diagnostic Studies: Radiology: Available data and images were reviewed personally. No results found. Selected Labs/Studies: Recent Labs Lab 12/29/14 0408 WBC 11.1* HGB 11.8 HCT 35.8 PLT 181 Recent Labs Lab 12/29/14 0408 12/28/14 0448 NA 141 134* K 3.7 3.9 CL 110* 104 CO2 24 22* BUN 16 15 CREA 0.81 0.77 CALCIUM 8.5 8.7 ALBUMIN -- 3.3 BILITOT -- 0.8 ALT -- 93* AST -- 482* ALKPHOS -- 75 No results for input(s): PHART, PO2ART, AFE7QRP, I7HABHXC, BEART in the last 168 hours. Recent Labs Lab 12/29/14 0408 12/28/14 0745 12/28/14 0007 TROPONINI 75.39* >100.00* 28.90* Recent Labs Lab 12/29/14407 INR 1.01 Micro results last 72hrs: Microbiology Results (72 hrs) Procedure Component Value Units Date/Time Culture, Respiratory, Lower, Smear [[id number]] Collected: 12/28/14 1236 Order Status: Completed Lab Status: Preliminary result Updated: 12/28/14 1447 Specimen Information: Respiratory / Sputum, expectorated Gram Stain Result 3+ White Blood Cells 1+ Epithelial cells 3+ Gram positive cocci 2+ Gram negative diplococci 1+ Gram negative rods Culture, MRSA [[id number]] Collected: 12/28/14 0808 Order Status: Completed Lab Status: Final result Updated: 12/29/14 0716 Specimen Information: Respiratory / Nares Culture Negative for MRSA by chromogenic agar method MEDICATIONS: SCHEDULED PRN albuterol-ipratropium 3 mL Nebulization RT TID aspirin 81 mg Oral Daily atorvaSTATin 80 mg Oral Nightly clopidogrel 75 mg Oral Daily doxycycline 100 mg Oral BID famotidine 20 mg Oral BID lisinopril 2.5 mg Oral Daily metoprolol tartrate 25 mg Oral BID spironolactone 12.5 mg Oral Daily acetaminophen, albuterol, aluminum & magnesium hydroxide-simethicone, nicotine, nitroglyc edmond, ondansetron, oxyCODONE Electronically signed by: Chana Rangel MD [facility] 12/29/2014 8:06 [facility] Portions of this chart may have been created with [employer] voice recognition software. Occasi onal wrong-word or sound-alike substitutions may have occurred due to the inherent ortez itations of voice recognition software. Please read the chart carefully and recognize, using context, where these substitutions have occurred. Chana Davies MD - 12/28/2014 3:57 PM PSTEcho reviewed. Formal report pending. EF is just below normal ( aprox 50%). Akinesis of the apex. Hypokinesis of the mid cavity anterior, anteroseptal and anterolateral segments. Fat pad or small effusion. RVH TR jet predicts normal RV pressure. IVC dilated with decreased collapse AI - appears mild ar Cathy sanchez RN - 12/28/2014 11:09 AM PSTDischarge cardiac lab rn education performed . Patient given quality assurance qa lab technician plavix folder. Patient and patient's family at bedside during educa tion. All patient's questions and concerns addressed. Patient denies further concerns. Patie nt verbalizes understanding of importance of discharge Rx. Patient given contact information for cardiology office if further questions arise. Chana Davies MD - 12/28/2014 7:58 AM PST PATIENT NAME: Cielo Bell : 1950: AGE: 64 y.o. PRIMARY CARE: Lance Pandya ICU FOLLOW UP VISIT Date of Service: 12/28/14 HISTORY OF PRESENT ILLNESS: Cielo Bell is a 64 y.o. female with a history of NSTEMI and delayed presentati on. She is being seen today for follow up. She has no further pain. She is hungry and all the nausea is gone. She has no neuro symptoms. She realizes she needs to quit smoking. She is interested in quitting. No dyspnea. Continues with a longstanding cough. MEDICAL, SURGICAL, AND PERSONAL HISTORY Past Medical, Surgical, Family, and Social History are reviewed in EPIC. CURRENT PROBLEMS Patient Active Problem List Diagnosis Smoking addiction Smoking addiction Smoking addiction Smoking addiction CURRENT MEDICATIONS Current Facility-Administered Medications Medication Dose Route Frequency Provider Last Rate Last Dose acetaminophen (TYLENOL) tablet 650 mg 650 mg Oral Q6H PRN Chana Rangel MD albuterol 2.5 mg/3 mL nebulizer solution 2.5 mg 2.5 mg Nebulization RT Q2H PRN Chana Rangel MD albuterol-ipratropium (DUONEB) 2.5-0.5 mg/3 mL nebulizer solution 3 mL 3 mL Nebulizati on RT 4x DAILY Chana Rangel MD aluminum & magnesium hydroxide-simethicone (MAALOX REGULAR STRENGTH) 200-200-20 mg/5 mL suspension 30 mL 30 mL Oral Q4H PRN Chana Rangel MD [START ON 12/29/2014] aspirin chewable tablet 81 mg 81 mg Oral Daily Tom Shannon D atorvaSTATin (LIPITOR) tablet 80 mg 80 mg Oral Nightly Chana Rangel MD 80 mg at 12/28/14 0239 clopidogrel (PLAVIX) tablet 75 mg 75 mg Oral Daily Chana Rangel MD metoprolol tartrate (LOPRESSOR) tablet 25 mg 25 mg Oral BID Chana Rangel MD 25 m g at 12/28/14 0239 nicotine (NICODERM) 21 mg/24 hr 1 patch 1 patch Transdermal Daily PRN Chana Rangel MD nitroglycerin (NITROSTAT) SL tablet 0.4 mg 0.4 mg Sublingual Q5 Min PRN Chana ni MD ondansetron (ZOFRAN) injection 4-8 mg 4-8 mg Intravenous Q6H PRN Chana Rangel MD oxyCODONE (ROXICODONE) tablet 5-10 mg 5-10 mg Oral Q4H PRN Chana Rangel MD ALLERGIES Allergies Allergen Reactions Ciprofloxacin Nausea And Vomiting Codeine Nausea And Vomiting Waller Tar Hives Povidone Iodine Hives Sulfa Antibiotics Other reaction(s): Erythema ROS: Cough Bruising at the cath site No other sx. No claudication and she walks quite a bit OBJECTIVE: PHYSICAL EXAM PHYSICAL EXAM Latest VS: BP 119/75 mmHg | Pulse 82 | Temp(Src) 36.5 C (97.7 F) (Oral) | Resp 24 | Ht 1.499 m (4' 11") | Wt 53.6 kg (118 lb 2.7 oz) | BMI 23.85 kg/m2 | SpO2 95% Vital sign ranges for last 24hrs: Input and output for last 24hrs: Temp: [36.5 C (97.7 F)-36.8 C (98.2 F)] 36.5 C (97.7 F) Pulse: [78-100] 82 Resp: [8-24] 24 BP: (119-146)/(75-92) 119/75 mmHg SpO2 Av.7 % Min: 89 % Max: 97 % Flow (L/Min)(Oxygen Therapy) Av Min: 4 Max: 6 12/26 1901 - 12/28 0700 In: 673.5 [I.V.:250] Out: 450 [Urine:450] Body mass index is 23.85 kg/(m^2).; Body surface area is 1.49 meters squared. Constitutional General appearance: no acute distress Cardiovascular Palp/Percussion: PMI in 5th ICS at MCL; no lifts, thrills, palp S3 or S4. Auscultation: normal S1 S2; no gallop or rub or click Murmur: none Carotid arteries: pulses 2+, symmetric, no bruits Abdominal aorta: no enlargement or bruits Femoral arteries: pulses 2+, symmetric Pedal pulses: pulses 1+, symmetric Peripheral circulation: no cyanosis, clubbing, edema, or varicosities Gastrointestinal Abdomen: soft, non-tender, no masses Liver and spleen: no enlargement Mental Status/Neurological Orientation: oriented to time, place, and person Affect/Mood: no depression, anxiety, or agitation Respiratory Respiratory effort: no intercostal retractions or use of accessory muscles Auscultation: decreased breath sounds Eyes Conjunctiva & lids: conjunctiva and lids normal Ears, Nose and Throat Lips: no pallor or cyanosis Neck Jugular veins: no significant JVD; no a, v or garcia waves Extremities Some bruise in the radial right ECG: Evolving anterior IA LAB RESULTS: LIPID No results found for: CHOL, TRIG, HDL, LDL, CHOLHDL, LDLEX, HDLEX, TRIGEX, CHOLEX CHEMISTRY Lab Results Component Value Date GLU 117* 12/28/2014 NA 134* 12/28/2014 K 3.9 12/28/2014 CL 104 12/28/2014 CO2 22* 12/28/2014 CALCIUM 8.7 12/28/2014 ALKPHOS 75 12/28/2014 AST 482* 12/28/2014 ALT 93* 12/28/2014 BILITOT 0.8 12/28/2014 CREA 0.77 12/28/2014 BUN 15 12/28/2014 HEMATOLOGY No results found for: WBC, WBCEX, HGB, HGBEX, HCT, HCTEX, PLT, PLTEX Recent Results (from the past 24 hour(s)) ECG 12 lead Result Value Ref Range VENTRICULAR RATE EKG 84 BPM ATRIAL RATE 84 BPM P-R INTERVAL 174 ms QRS DURATION 78 ms Q-T INTERVAL 368 ms Q-T INTERVAL (CORRECTED) 434 ms P WAVE AXIS 77 degrees QRS AXIS -2 degrees T AXIS 68 degrees INTERPRETATION TEXT Normal sinus rhythm Anteroseptal infarct , age undetermined Abnormal ECG No previous ECGs available Confirmed by CHANA RANGEL MD ([id number]) on 12/28/2014 6:53:08 AM Troponin I Result Value Ref Range TROPONIN I 28.90 (HH) <0.06 ng/mL Extra Lavender Top Tube Result Value Ref Range Extra Lavender Top Tube Done POC ACT Result Value Ref Range POC Activated Clotting Time 218 (H) 125-175 second(s) POC ACT Result Value Ref Range POC Activated Clotting Time 293 (H) 125-175 second(s) ECG 12 lead Result Value Ref Range VENTRICULAR RATE EKG 93 BPM ATRIAL RATE 93 BPM P-R INTERVAL 174 ms QRS DURATION 76 ms Q-T INTERVAL 384 ms Q-T INTERVAL (CORRECTED) 477 ms P WAVE AXIS 81 degrees QRS AXIS 25 degrees T AXIS 82 degrees INTERPRETATION TEXT Normal sinus rhythm Low voltage QRS Right atrial enlargement Cannot rule out Anteroseptal infarct (cited on or before 27-DEC-2014) Abnormal ECG When compared with ECG of 27-DEC-2014 23:19, (Unconfirmed) Inverted T waves have replaced nonspecific T wave abnormality in Anterior leads Serial changes of evolving IA Confirmed by CHANA RANGEL MD ([id number]) on 12/28/2014 6:55:04 AM Comprehensive Metabolic Panel Result Value Ref Range NA 134 (L) 136-149 mmol/L K 3.9 3.5-5.1 mmol/L CL 104 98-109 mmol/L CO2 22 (L) 24-31 mmol/L ANION GAP 8 3-16 mmol/L GLUCOSE 117 (H) 70-109 mg/dL BUN 15 7-18 mg/dL Creatinine, Serum/Plasma 0.77 0.60-1.30 mg/dL eGFR if not >60 >=60 mL/min/1.73m2 CALCIUM 8.7 8.3-10.5 mg/dL ALBUMIN 3.3 3.2-5.0 g/dL BILIRUBIN TOTAL 0.8 0.1-1.5 mg/dL Total protein 6.2 6.0-7.8 g/dL AST 482 (H) 10-42 U/L ALT 93 (H) 6-45 U/L ALK PHOS 75 40-110 U/L GLOBULIN 2.9 g/dL Albumin/Globulin ratio 1.1 BUN/CREA 19.5 CK Total Result Value Ref Range CK TOTAL 6222 (H) 22-269 U/L Extra Lavender Top Tube Result Value Ref Range Extra Lavender Top Tube Done ASSESSMENT: Acute anterior IA with delayed presentation H/O 2 cerebral aneurysms (coil and clip 2007) HTN Dyslipidemia PLAN: Discussed smoking cessation Discussed medical Rx Echo Electronically signed by: Chana Rangel MD [facility] 12/28/2014 Portions of this chart may have been created with [employer] voice recognition software. Occasi onal wrong-word or sound-alike substitutions may have occurred due to the inherent ortez itations of voice recognition software. Please read the chart carefully and recognize, using context, where these substitutions have occurred. documented in this e ncounter H&P Notes Chana Rangel MD - 12/27/2014 11:47 PM PSTFormatting of this note might be different fr om the original. PATIENT NAME: Cielo Bell : 1950: AGE: 64 y.o. REFERRED BY: No additional provider found PRIMARY CARE: Lance Pandya NEW PATIENT ICU ADMIT Date of Service: 12/27/14 HISTORY OF PRESENT ILLNESS: Cielo Bell is a 64 y.o. female with no previous cardiac history. She is being seen today for NSTEMI. She is referred by Dr Nan She presented to the ER at [facility]. She awoke this AM at 7 and had mid sternal chest pa in radiating to the left chest. She also had diaphoresis. She did not do anything all day. This PM her son went by and told her she needed to go to the ER. In the ER she had Q waves in V1 - V4. These were new compared to an ECG from Oct. She had been in the ER with "heartburn" 2 weeks ago. There was no ECG done at that time. CURRENT PROBLEMS Patient Active Problem List Diagnosis Smoking addiction Smoking addiction Smoking addiction Smoking addiction methicillin resistant staph Asthma - COPD - recent PFT abnormal and she was advised to start inhalers. They were too e xpensive and she did not fill the RX 2 cerebral aneurysms in 2007. 1 clipped and 1 coiled. She also has a [employer] shunt that is not functioning and not needed MEDICAL, SURGICAL, AND PERSONAL HISTORY Hysterectomy, colonoscopy 2 weeks ago. Diverticulosis. Bladder sling, cholecystectomy, pa rotid gland removed. Toenails bilat No family history on file. No family status information on file. brother had a stent and mother is 91 and has CHF History Social History Marital Status: Spouse Name: N/A Number of Children: N/A Years of Education: N/A Social History Main Topics Smoking status: Current everyday smoker. Smokeless tobacco: Not on file Alcohol Use: No sig ETOH Drug Use: Not on file Sexual Activity: Not on file Other Topics Concern Not on file Social History Narrative No narrative on file CURRENT MEDICATIONS Current Facility-Administered Medications Medication Dose Route Frequency Provider Last Rate Last Dose [START ON 12/28/2014] aspirin chewable tablet 81 mg 81 mg Oral Daily Tom Shannon [START ON 12/28/2014] atorvaSTATin (LIPITOR) tablet 80 mg 80 mg Oral Nightly Chana zapata MD [START ON 12/28/2014] metoprolol tartrate (LOPRESSOR) tablet 25 mg 25 mg Oral BID Chana Rangel MD nitroglycerin (NITROSTAT) SL tablet 0.4 mg 0.4 mg Sublingual Q5 Min PRN Chana ni MD ALLERGIES Allergies Allergen Reactions Ciprofloxacin Nausea And Vomiting Codeine Nausea And Vomiting Waller Tar Hives Povidone Iodine Hives Sulfa Antibiotics Other reaction(s): Erythema no reactions to contrast ROS Had a headache recently. Seen in the ER and had CT of brain that was OK Had large evaluation before parotid Cough + GERD No bleeding No new neuro Sx Complete 10 system review otherwise nl OBJECTIVE: PHYSICAL EXAM BP 139/85 mmHg | Pulse 92 | Temp(Src) 36.8 C (98.2 F) (Oral) | Resp 14 | Ht 1.499 m (4' 11") | Wt 53.6 kg (118 lb 2.7 oz) | BMI 23.85 kg/m2 | SpO2 97% General appearance: anxious Eyes: no icterus. Lids normal Mouth: no cyanosis. Neck: No lymphadenopathy in the neck or supraclavicular area. Good carotid upstroke. No bruits. No JVD. Shunt palpable Lungs: CTA decreased breath sounds Heart: normal sounds no murmur Abdomen: soft. No masses Ext: No CCE in upper or lower extremities Neuro: Awake and oriented x3 Distal pulses are 1+ lower and normal right radial Skin benign ECG: Anterior IA with Q waves LAB RESULTS: LIPID Not available CHEMISTRY Gluc 127 Creat 0.82 K 4.1 HEMATOLOGY No results found for: WBC 13.1, WBCEX, HGB 13.8 HGBEX, HCT, HCTEX, PLT, 233 I reviewed records from [facility] and [facility] ASSESSMENT: Anterior IA - ongoing pain H/O cerebral aneurysms H/O HTN H/O hyperlipidemia PLAN: Cardiac cath The risk and benefits of appropriate heart catheterization with possible balloons, stents, or other appropriate techniques as indicated were discussed. It was explained that the pos sible complications include but are not limited to , stroke, heart arrest, emergency castillo rgery, blood vessel injury possibly requiring surgical repair, site infection, acute kidney failure, and/or reactions to iodine contrast agent or sedatives. Increased risk of IC bleeding discussed. The patient's questions were answered, and the p atient wishes to proceed. Patient is appropriate for conscious sedation. Types of stents were discussed and bare metal would be most appropriate for this patient. Electronically signed by: Chana Rangel MD [facility] 12/27/2014 Portions of this chart may have been created with [employer] voice recognition software. Occasi onal wrong-word or sound-alike substitutions may have occurred due to the inherent ortez itations of voice recognition software. Please read the chart carefully and recognize, using context, where these substitutions have occurred. documented in this encounter Miscellaneous Notes Plan of Care - Sheryl Cisneros MSW - 12/29/2014 12:48 PM PSTProblem: General Plan of Car e (Adult, Obstetrics) Goal: Care Plan Shift Summary & Review . Outcome: Progressing Patient lives in [place], [place] and will be discharging home today. PCP is Dr. Pandya. Will follow up with lab rn to make a appointment. No further needs. Electronically signed by: JUSTINA Guillory 12/29/2014 12:48 After speaking with MARCELL Garcia, she stats that patient needed a nebulizer at discharge. Ashkan glass faxed the Rx, face sheet to [facility] in [place]. She spoke with Vivek to set this up. Vivek states that they would have it delivered to patients home. Electronically signed by: JUSTINA Guillory 12/29/2014 15:46Electronically signed by JUSTINA Lechuga at 09/2014 3:46 PM PSTPlan of Care - Ronda Perla, RN - 12/29/2014 9:06 AM PSTProblem: General Plan of Care (Adult, Obstetrics) Goal: Individualization/Patient-Specific Goal (Adult, Obstetrics) Individualization: Patient s unique needs, preferences, requests, personal goals, or care interventions/approaches. Outcome: Adequate for Discharge Date Met: 12/29/14 Goal: Care Plan Shift Summary & Review . Outcome: Adequate for Discharge Date Met: 12/29/14 Problem: Arrhythmia/Dysrhythmia (Symptomatic) (Adult, Obstetrics) Goal: Prevent/Manage Potential Problems (Arrhythmia/Dysrhythmia (Symptomatic) (Adult, Obste trics)) Outcome: Signs and symptoms of listed potential problems will be absent or manageable (refe rence CPG) Outcome: Adequate for Discharge Date Met: 12/29/14 Problem: Cardiac Catheterization With/Without PCI (Adult) Goal: Prevent/Manage Potential Problems (Cardiac Catheterization with/without PCI (Adult)) Outcome: Signs and symptoms of listed potential problems will be absent or manageable (refe rence CPG) Outcome: Adequate for Discharge Date Met: 12/29/14 Comments: All Cielo's questions were answered to her verbalized satisfaction and understandingElectr onically signed by Ronda Perla, RN at 12/29/2014 9:06 AM PSTPlan of Care - Morenita Richter, ALEKSANDAR - 12/29/2014 1:34 AM PSTProblem: General Plan of Care (Adult, Obstetrics) Goal: Individualization/Patient-Specific Goal (Adult, Obstetrics) Individualization: Patient s unique needs, preferences, requests, personal goals, or care interventions/approaches. Outcome: Progressing L1- Pt is S/P heart catheterization. Stents x2 placed LAD. No further chest pain or pressur e. VSS. lan of Care - Marleny Jolley, RANJEET - 12/28/2014 6:30 PM PSTFormatting of this note might be different from t he original. Problem: General Plan of Care (Adult, Obstetrics) Goal: Care Plan Shift Summary & Review . Severity Score 5 Class 2 Severity Score 0-4 Patient is on room air. Breath sounds clear. Sputum obtained and sent to lab. Takes sheila tments well. Stated she was prescribed inhalers but has not picked them up due to the cost. Continue to monitor patient. ITEM 0 1 2 3 4 3 Respiratory History No Smoking history Current tobacco use Up to 10 Pack year history. Simple home regimen Known Pulmonary Disease 20 pack year history Complex Home regimen 30+ pack year history Severe Pulmonary Disease or exacerbation 0 Surgery Status (current admission) No surgery Minor surgery Lower abdominal rib fractures Thoracic or uppe r abdominal Thoracic with pulmonary disease or Central Nervous System 1 Chest X-RAY Clear or Normal baseline Unavailable Improving/clearing Abnormal, Unilateral or mild Infiltrates or atelectasis, Chronic changes Infiltrates mild bilateral or unilateral or pleural effusions extensive Inf iltrates, atelectasis or pleural effusions, pneumothorax 0 Respiratory Pattern Regular pattern Respiratory Rate:8-20 Increased Respiratory Rate, labored Dyspnea on exertion, irregular pattern Use of accessory muscles, prolonged expirato ry phase nasal flaring Severe Dyspnea , Purse Lip Breathing, Use of accessory muscles 0 Breath Sounds Clear Diminished unilaterally Diminished bilaterally &/or crackles Wheezing or Rhonchi &/or absent unilateral Absent bilaterally 0 Cough Strong, non productive Moderate, loose, productive Weak, non-productive Weak, ineffective Non-spontaneous or may require suctioning 1 Sputum None Scant / Thin White/clear Moderate Beige/ yellow Large / Thick Dark Green/Brown Copious / Plugs Hemoptysis russell 0 LOC Alert, oriented, cooperative Disoriented, follows commands Obtunded, arousable, follo ws commands Obtunded, uncooperative, sedated Comatose 0 Oxygen Demand Room air Baseline 1-2 liters 3-6 liters >7 Liters Oxymizer to > 55% 60% or greater Total Severity Score (SS) Class 0-3 1 4-7 2 8-11 3 12-14 4 15+ 5 lan of [place] - Ronda Velasquez RN - 12/28/2014 9:46 AM PSTBlack tarry loose stool hemoccult positiveEl ectronically signed by Ronda Perla RN at 12/28/2014 9:47 AM PSTPlan of [place] Ronda Limon RN - 12/28/2014 9:15 AM PSTLarge emesis absent nausea - 250 ml undigested f oods/juices from breakfast - declined prn meds as no nausea followed emesisElectronically si gned by Ronda Perla RN at 12/28/2014 10:15 AM PSTPlan of Meme Mcgill RN - 12/28/2014 4:09 AM PSTProblem: General Plan of Care (Adult, Obstetrics) Goal: Individualization/Patient-Specific Goal (Adult, Obstetrics) Individualization: Patient s unique needs, preferences, requests, personal goals, or care interventions/approaches. Outcome: Progressing L1- Pt is S/P heart cath. Stents x2 placed LAD. She has no further chest pain and pt VSS. P t does have smokers cough, lungs clear slightly dim bases. TR band attempts to remove air sh e had bleeding episodes. She was on heparin for the ambulance ride from [place] until she went down for stent placement. S/P placement she received Plavix. lan of Carlos Eduardo Enamorado RRT - 12/28/2014 2:23 AM PSTFormatting of this note might be different from the or iginal. Severity Score 8 Class 3 Severity Score 0-4 ITEM 0 1 2 3 4 3 Respiratory History No Smoking history Current tobacco use Up to 10 Pack year history. Simple home regimen Known Pulmonary Disease 20 pack year history Complex Home regimen 30+ pack year history Severe Pulmonary Disease or exacerbation 1 Surgery Status (current admission) No surgery Minor surgery Lower abdominal rib fractures Thoracic or uppe r abdominal Thoracic with pulmonary disease or Central Nervous System 1 Chest X-RAY Clear or Normal baseline Unavailable Improving/clearing Abnormal, Unilateral or mild Infiltrates or atelectasis, Chronic changes Infiltrates mild bilateral or unilateral or pleural effusions extensive Inf iltrates, atelectasis or pleural effusions, pneumothorax 0 Respiratory Pattern Regular pattern Respiratory Rate:8-20 Increased Respiratory Rate, labored Dyspnea on exertion, irregular pattern Use of accessory muscles, prolonged expirato ry phase nasal flaring Severe Dyspnea , Purse Lip Breathing, Use of accessory muscles 0 Breath Sounds Clear Diminished unilaterally Diminished bilaterally &/or crackles Wheezing or Rhonchi &/or absent unilateral Absent bilaterally 1 Cough Strong, non productive Moderate, loose, productive Weak, non-productive Weak, ineffective Non-spontaneous or may require suctioning 0 Sputum None Scant / Thin White/clear Moderate Beige/ yellow Large / Thick Dark Green/Brown Copious / Plugs Hemoptysis russell 0 LOC Alert, oriented, cooperative Disoriented, follows commands Obtunded, arousable, follo ws commands Obtunded, uncooperative, sedated Comatose 2 Oxygen Demand Room air Baseline 1-2 liters 3-6 liters >7 Liters Oxymizer to > 55% 60% or greater Total Severity Score (SS) Class 0-3 1 4-7 2 8-11 3 12-14 4 15+ 5 edation Documentation - Cathy Delgadillo RN - 12/28/2014 1:45 AM PSTFurther bedside report given to [facility]e [facility] ICU. Patient denies pain of any kind. Patient sitting up in bed and answering questions columba ropriately. TR band with no swelling, bleeding, or hematoma noted. Patient verbalizes unders tanding of TR band usage. Patient care transferred to RN and monitoring equipment switched t o ICU monitoring. RN denies any further questions or concerns. edation Documentation - Cathy Delgadillo R N - 12/28/2014 1:35 AM PSTTr band with 10ml air. No swelling or hematoma noted. Distal cap refill less than 3 seconds. Patient denies pain of any kind. Patient transported back to ICU via bed with RN, tech, and monitor. Electronically signed by Cathy Delgadillo RN at 08/2014 1:36 AM PSTSedation Documentation - Cathy Delgadillo RN - 12/28/2014 1:09 AM PS TPatient c/o pain in right hand/wristElectronically signed by Cathy Delgadillo RN at 08/2014 1:13 AM PSTSedation Documentation - Cathy Delgadillo RN - 12/28/2014 12:30 AM PS TReport received from Meme HUERTAS ICU. Patient sitting up in bed and answering questions approp riately. Patient denies chest pain of any kind. Family at bedside. Patient states that she h as had angiograms before. All of patients questions and concerns addressed, consent form sig gem. Patient transported to lab rn with RN and monitor without incident. Electronically si gned by Cathy Delgadillo RN at 12/28/2014 1:10 AM PSTdocumented in this encounter Plan of Treatment + +------+--------+ + + | Name | Type | Priori | Associated Diagnoses | Order Schedule | | | | ty | | | + +------+--------+ + + | Basic Metabolic | Lab | Routin | Chronic | Expected: | | Panel | | e | obstructive | 01/01/2015, Expires: | | | | | pulmonary disease, | 01/02/2016 | | | | | unspecified COPD | | | | | | type ([facility]) H/O | | | | | | cerebral aneurysm | | | | | | repair NSTEMI | | | | | | (non-ST elevated | | | | | | myocardial | | | | | | infarction) ([facility]) | | + +------+--------+ + + documented as of this encounter Procedures + +--------+ + + + | Procedure Name | Priori | Date/Time | Associated Diagnosis | Comments | | | ty | | | | + +--------+ + + + | TROPONIN I | Routin | 12/29/2014 | | Results for this | | | e | 4:08 AM | | procedure are in the | | | | PST | | results section. | + +--------+ + + + | PROTIME INR | Routin | 12/29/2014 | | Results for this | | | e | 4:08 AM | | procedure are in the | | | | PST | | results section. | + +--------+ + + + | CBC NO DIFFERENTIAL | Routin | 12/29/2014 | | Results for this | | | e | 4:08 AM | | procedure are in the | | | | PST | | results section. | + +--------+ + + + | BASIC METABOLIC | Routin | 12/29/2014 | | Results for this | | PANEL | e | 4:08 AM | | procedure are in the | | | | PST | | results section. | + +--------+ + + + | CULTURE, | Routin | 12/28/2014 | | Results for this | | RESPIRATORY, LOWER, | e | 12:36 PM | | procedure are in the | | SMEAR | | PST | | results section. | + +--------+ + + + | CV DIAGNOSTIC | | 12/28/2014 | chest pain | | | CARDIAC CATH | | 12:00 PM | | | | | | PST | | | + +--------+ + + + | ECHO COMPLETE | Routin | 12/28/2014 | | Results for this | | | e | 11:00 AM | | procedure are in the | | | | PST | | results section. | + +--------+ + + + | CULTURE, MRSA | Routin | 12/28/2014 | | Results for this | | | e | 8:08 AM | | procedure are in the | | | | PST | | results section. | + +--------+ + + + | TROPONIN I | Routin | 12/28/2014 | | Results for this | | | e | 7:45 AM | | procedure are in the | | | | PST | | results section. | + +--------+ + + + | EXTRA LAVENDER TOP | Routin | 12/28/2014 | | Results for this | | TUBE | e | 5:19 AM | | procedure are in the | | | | PST | | results section. | + +--------+ + + + | LIPID PANEL | Add-On | 12/28/2014 | | Results for this | | | | 4:48 AM | | procedure are in the | | | | PST | | results section. | + +--------+ + + + | CK TOTAL | Routin | 12/28/2014 | | Results for this | | | e | 4:48 AM | | procedure are in the | | | | PST | | results section. | + +--------+ + + + | COMPREHENSIVE | Routin | 12/28/2014 | | Results for this | | METABOLIC PANEL | e | 4:48 AM | | procedure are in the | | | | PST | | results section. | + +--------+ + + + | ECG 12 LEAD | SAIDA | 12/28/2014 | | Results for this | | | | 2:40 AM | | procedure are in the | | | | PST | | results section. | + +--------+ + + + | CV DIAGNOSTIC | Routin | 12/28/2014 | | Results for this | | CARDIAC CATH | e | 1:46 AM | | procedure are in the | | | | PST | | results section. | + +--------+ + + + | POC ACTIVATED | Routin | 12/28/2014 | | Results for this | | CLOTTING TIME ISTAT | e | 1:02 AM | | procedure are in the | | | | PST | | results section. | + +--------+ + + + | POC ACTIVATED | Routin | 12/28/2014 | | Results for this | | CLOTTING TIME ISTAT | e | 12:49 AM | | procedure are in the | | | | PST | | results section. | + +--------+ + + + | EXTRA LAVENDER TOP | Routin | 12/28/2014 | | Results for this | | TUBE | e | 12:17 AM | | procedure are in the | | | | PST | | results section. | + +--------+ + + + | TROPONIN I | Routin | 12/28/2014 | | Results for this | | | e | 12:07 AM | | procedure are in the | | | | PST | | results section. | + +--------+ + + + | LVEF VALUE | Routin | 12/28/2014 | | Results for this | | | e | | | procedure are in the | | | | | | results section. | + +--------+ + + + | ECG 12 LEAD | Routin | 12/27/2014 | | Results for this | | | e | 11:19 PM | | procedure are in the | | | | PST | | results section. | + +--------+ + + + documented in this encounter Results Troponin I (12/29/2014 4:08 AM PST) + + + + + + | Component | Value | Ref Range | Performed | Pathologist | | | | | At | Signature | + + + + + + | Troponin I | 75.39 ()Comment: | <0.06 ng/mL | [facility] | | | | Reference | | [facility] | | | | Ranges:0.00-0.06 = | | MEDICAL | | | | NORMAL>0.06 = | | CENTER - | | | | SUSPICIOUS FOR | | LABORATORY | | | | MYOCARDIAL DAMAGE NOTE: | | | | | | Values greater than 0.50 | | | | | | ng/mL have been shown | | | | | | to be strongly | | | | | | associated with acute | | | | | | myocardial infarction. | | | | | | The [employer] | | | | | | Cardiology (ACC) | | | | | | recommends a decision | | | | | | limit of 0.06 ng/mL for | | | | | | this assay. Results | | | | | | greater than 0.06 can | | | | | | reflect a pre-infarct | | | | | | acute coronary syndrome, | | | | | | but can also reflect | | | | | | myocardial necrosis or | | | | | | injury that is not due | | | | | | to coronary artery | | | | | | disease. Some of these | | | | | | causes are sepsis, | | | | | | hypocolemia, atrial | | | | | | fibrillation, heart | | | | | | failure, pulmonary | | | | | | embolism, myocarditis, | | | | | | myocardial contusion, | | | | | | and renal failure. The | | | | | | diagnosis of myocardial | | | | | | infarction should be | | | | | | based on a combination | | | | | | of the patient's | | | | | | clinical presentation | | | | | | and the clinical | | | | | | laboratory test results | | | | | | (especially serial | | | | | | troponin levels). | | | | | | Consistent with previous | | | | | | results. | | | | + + + + + + + + | Specimen | + + | Blood | + + + + + + + | Performing | Address | City/State/Zipcode | Phone Number | | Organization | | | | + + + + + | [facility] | [address] | [place] | [phone] | | [facility] | | [address] | | | - LABORATORY | | | | + + + + + Protime INR (12/29/2014 4:08 AM PST) + + + + + + | Component | Value | Ref Range | Performed | Pathologist | | | | | At | Signature | + + + + + + | Prothrombin | 13.8 | 11.3 - 13.9 | [facility] | | | Time | | seconds | [facility] | | | | | | MEDICAL | | | | | | CENTER - | | | | | | LABORATORY | | + + + + + + | INR | 1.01Comment: Usual Oral | 0.90 - 1.10 | [facility] | | | | Anticoagulation Range: | | [facility] | | | | 2.0 - 3.0High | | MEDICAL | | | | Level Oral | | CENTER - | | | | Anticoagulation Range: | | LABORATORY | | | | 2.5 - 3.5 | | | | + + + + + + + + | Specimen | + + | Blood | + + + + + + + | Performing | Address | City/State/Zipcode | Phone Number | | Organization | | | | + + + + + | [facility] | [address] | [place] | [phone] | | [facility] | | [address] | | | - LABORATORY | | | | + + + + + CBC no Differential (12/29/2014 4:08 AM PST) + + + + + + | Component | Value | Ref Range | Performed | Pathologist | | | | | At | Signature | + + + + + + | White Blood | 11.1 (H) | 4.0 - 11.0 K/uL | [facility] | | | Cells | | | [facility] | | | | | | MEDICAL | | | | | | CENTER - | | | | | | LABORATORY | | + + + + + + | Red Blood | 3.79 | 3.70 - 5.20 | [facility] | | | Cells | | M/uL | [facility] | | | | | | MEDICAL | | | | | | CENTER - | | | | | | LABORATORY | | + + + + + + | Hemoglobin | 11.8 | 11.5 - 16.0 | [facility] | | | | | g/dL | [facility] | | | | | | MEDICAL | | | | | | CENTER - | | | | | | LABORATORY | | + + + + + + | Hematocrit | 35.8 | 34.0 - 47.0 % | [facility] | | | | | | [facility] | | | | | | MEDICAL | | | | | | CENTER - | | | | | | LABORATORY | | + + + + + + | MCV | 94.5 | 83.0 - 101.0 fL | [facility] | | | | | | [facility] | | | | | | MEDICAL | | | | | | CENTER - | | | | | | LABORATORY | | + + + + + + | MCH | 31.1 | 28.0 - 35.0 pg | [facility] | | | | | | [facility] | | | | | | MEDICAL | | | | | | CENTER - | | | | | | LABORATORY | | + + + + + + | MCHC | 32.9 | 32.0 - 36.0 | [facility] | | | | | g/dL | [facility] | | | | | | MEDICAL | | | | | | CENTER - | | | | | | LABORATORY | | + + + + + + | RDW-CV | 13.7 | <15.0 % | [facility] | | | | | | [facility] | | | | | | MEDICAL | | | | | | CENTER - | | | | | | LABORATORY | | + + + + + + | Platelet | 181 | 140 - 440 K/uL | [facility] | | | Count | | | [facility] | | | | | | MEDICAL | | | | | | CENTER - | | | | | | LABORATORY | | + + + + + + | MPV | 8.9 | fL | [facility] | | | | | | [facility] [address] | [place] | [phone] | | [facility] | | [address] | | | - LABORATORY | | | | + + + + + Basic Metabolic Panel (12/29/2014 4:08 AM PST) + + + + + + | Component | Value | Ref Range | Performed | Pathologist | | | | | At | Signature | + + + + + + | Na | 141 | 136 - 149 | [facility] | | | | | mmol/L | [facility] | | | | | | MEDICAL | | | | | | CENTER - | | | | | | LABORATORY | | + + + + + + | K | 3.7 | 3.5 - 5.1 | [facility] | | | | | mmol/L | [facility] | | | | | | MEDICAL | | | | | | CENTER - | | | | | | LABORATORY | | + + + + + + | Cl | 110 (H) | 98 - 109 mmol/L | [facility] | | | | | | [facility] | | | | | | MEDICAL | | | | | | CENTER - | | | | | | LABORATORY | | + + + + + + | CO2 | 24 | 24 - 31 mmol/L | [facility] | | | | | | [facility] | | | | | | MEDICAL | | | | | | CENTER - | | | | | | LABORATORY | | + + + + + + | Anion Gap | 7 | 3 - 16 mmol/L | [facility] | | | | | | [facility] | | | | | | MEDICAL | | | | | | CENTER - | | | | | | LABORATORY | | + + + + + + | Glucose | 97 | 70 - 109 mg/dL | [facility] | | | | | | [facility] | | | | | | MEDICAL | | | | | | CENTER - | | | | | | LABORATORY | | + + + + + + | BUN | 16 | 7 - 18 mg/dL | [facility] | | | | | | [facility] | | | | [facility] | [facility] | | | | | | CENTER - | | | | | | LABORATORY | | + + + + + + | Creatinine | 0.81 | 0.60 - 1.30 | [facility] | | | | | mg/dL | [facility] | | | | | | MEDICAL | | | | | | CENTER - | | | | | | LABORATORY | | + + + + + + | eGFR, | >60Comment: GLOMERULAR | >=60 | [facility] | | | non- | FILTRATION | mL/min/1.73m2 | [facility] | | | Indian | RATE,ESTIMATED | | MEDICAL | | | | mL/min/1.32a9Lvji than | | CENTER - | | [...] + + + + | Calcium | 8.5 | 8.3 - 10.5 | [facility] | | | | | mg/dL | [facility] | | | | | | MEDICAL | | | | | | CENTER - | | | | | | LABORATORY | | + + + + + + | BUN/Creatin | 19.8 | | [facility] | | | ine Ratio | | | [facility] | | [...] + | [facility] | [address] | [place] | [phone] | | [facility] | | [address] | | | - LABORATORY | | | | + + + + + Culture, Respiratory, Lower, Smear (12/28/2014 12:36 PM PST) + + + + + + | Component | Value | Ref Range | Performed | Pathologist | | | | | At | Signature | + + + + + + | Culture | 4+ Usual Respiratory | | [facility] | | | | Naomi | | [facility] | | | | | | MEDICAL | | | | | | CENTER - | | | | | | LABORATORY | | + + + + + + | Gram Stain | 3+ White Blood Cells | | [facility] | | | Result | | | [facility] | | | | | | MEDICAL | | | | | | CENTER - | | | | | | LABORATORY | | + + + + + + | Gram Stain | 1+ Epithelial cells | | [facility] | | | Result | | | [facility] | | | | | | MEDICAL | | | | | | CENTER - | | | | | | LABORATORY | | + + + + + + | Gram Stain | 3+ Gram positive cocci | | [facility] | | | Result | | | [facility] | | | | | | MEDICAL | | | | | | CENTER - | | | | | | LABORATORY | | + + + + + + | Gram Stain | 2+ Gram negative | | [facility] | | | Result | diplococci | | [facility] | | | | | | MEDICAL | | | | | | CENTER - | | | | | | LABORATORY | | + + + + + + | Gram Stain | 1+ Gram negative rods | | [facility] | | | Result | | | [facility] | | | | | | MEDICAL | | | | | | CENTER - | | | | | | LABORATORY | | + + + + + + + + | Specimen | + + | Respiratory - | | Coughed sputum | | specimen (specimen) | + + + + + + + | Performing | Address | City/State/Zipcode | Phone Number | | Organization | | | | + + + + + | [facility] | [address] | [place] | [phone] | | [facility] | | [address] | | | - LABORATORY | | | | + + + + + ECHO Complete (12/28/2014 11:00 AM PST) + + | Specimen | + + | | + + + + + | Narrative | Performed At | + + + | [facility] ECHOCARDIOGRAM REPORT | | | STUDY DATE: 12/28/2014 PATIENT NAME: Cielo Bell | | | : 1950 PCP: Lance Pandya | | | CLINICAL HISTORY/DIAGNOSIS: [place] A transthoracic echocardiogram | | | with M-mode, pulsed-wave and color Doppler was performed with | | | standard views obtained. The technical quality of this examination | | | is adequate. Parasternal views are suboptimal. The heart rhythm | | | during the echo is normal with heart rate in the 70s to 80s. The | | | M-mode, two-dimensional, color flow and spectral Doppler data were | | | reviewed and support the following interpretation: Interpretation: | | | Left Atrium: Left atrial size is normal. Left ventricle: Left | | | ventricular size is normal with normal wall thickness and mild | | | apical hypokinesis but overall preserved left ventricular systolic | | | function. The estimated ejection fraction is 54%. Grade 1 left | | | ventricular diastolic dysfunction. Aortic root: Aortic root is | | | normal. Right Atrium: Right atrial sizes normal. Right ventricle: | | | Right ventricular size is normal with normal wall thickness and | | | normal right ventricular systolic function. Pericardium: | | | Pericardium is normal. Pulmonary artery: Pulmonary artery is | | | normal. Aortic valve: Aortic valve is trileaflet and opens | | | normally. there is mild insufficiency noted. Mitral valve: Mitral | | | valve is normal. Pulmonic valve: Pulmonic valve is normal. | | | Tricuspid valve: Normal with trace insufficiency and peak velocity | | | consistent with normal RVSP. Vena cava: The inferior vena cava is | | | normal. There is greater than 50% inspiratory collapse of the IVC. | | | IMPRESSIONS: 1. Normal LV size and mild apical | | | hypokinesis with overall preserved systolic function with LVEF 54%. | | | 2. Mild aortic insufficiency without significant stenosis. 3. | | | Normal pulmonary pressures. 4. Grade 1 LV diastolic dysfunction. | | | Measurements: Height: 4'11" Weight: 118lbs Aortic | | | root: 31 mm Aortic cusp sep: 12 mm LA: 28 mm IVS-diastole: | | | 8 mm IVS-systole: 9 mm LVPW diastole: 8 mm LVPW systole: 12 | | | mm LV diameter-diastole: 43 mm LV diameter-systole: 34 mm | | | Fractional shortenin % PFV aortic valve: 1.7 m/s MPG mitral | | | valve: mmHg PFV TR jet: 1.88 m/s RA/RV PP.1 mmHg LA | | | volume: 26 mL LA index: 18 mL/m2 Mitral Inflow DT: 164 ms | | | IVRT: 105 ms Valsalva: Not needed PWDTI S wave: 6.1 cm/s | | | PWDTI E wave: 5.5 cm/s PWDTI A wave: 8.1 cm/s E/A Ratio: 0.679 | | | E/E Ratio: 15.97 Signed by: Hugo Garcia MD | | | PhD [facility] 12/28/2014 11:57 Lobby Concierge: Karol | | | MARIANA Dawson | | + + + Culture, MRSA (12/28/2014 8:08 AM PST) + + + + + + | Component | Value | Ref Range | Performed | Pathologist | | | | | At | Signature | + + + + + + | Culture | Negative for MRSA by | | [facility] | | | | chromogenic agar method | | [facility] | | | | | | MEDICAL | | | | | | CENTER - | | | | | | LABORATORY | | + + + + + + + + | Specimen | + + | Respiratory - Both | | anterior nares (body | | structure) | + + + + + + + | Performing | Address | City/State/Zipcode | Phone Number | | Organization | | | | + + + + + | [facility] | [address] | [place] | [phone] | | [facility] | | [address] | | | - LABORATORY | | | | + + + + + Troponin I (12/28/2014 7:45 AM PST) + + + + + + | Component | Value | Ref Range | Performed | Pathologist | | | | | At | Signature | + + + + + + | Troponin I | >100.00 ()Comment: | <0.06 ng/mL | [facility] | | | | Alert Value: Clinical | | [facility] | | | | Provider notification at | | MEDICAL | | | | Nurses | | CENTER - | | | | discretion.Reference | | LABORATORY | | | | Ranges:0.00-0.06 = | | | | | | NORMAL>0.06 = | | | | | | SUSPICIOUS FOR | | | | | | MYOCARDIAL DAMAGE NOTE: | | | | | | Values greater than 0.50 | | | | | | ng/mL have been shown | | | | | | to be strongly | | | | | | associated with acute | | | | | | myocardial infarction. | | | | | | The [employer] | | | | | | Cardiology (ACC) | | | | | | recommends a decision | | | | | | limit of 0.06 ng/mL for | | | | | | this assay. Results | | | | | | greater than 0.06 can | | | | | | reflect a pre-infarct | | | | | | acute coronary syndrome, | | | | | | but can also reflect | | | | | | myocardial necrosis or | | | | | | injury that is not due | | | | | | to coronary artery | | | | | | disease. Some of these | | | | | | causes are sepsis, | | | | | | hypocolemia, atrial | | | | | | fibrillation, heart | | | | | | failure, pulmonary | | | | | | embolism, myocarditis, | | | | | | myocardial contusion, | | | | | | and renal failure. The | | | | | | diagnosis of myocardial | | | | | | infarction should be | | | | | | based on a combination | | | | | | of the patient's | | | | | | clinical presentation | | | | | | and the clinical | | | | | | laboratory test results | | | | | | (especially serial | | | | | | troponin levels). | | | | + + + + + + + + | Specimen | + + | Blood | + + + + + + + | Performing | Address | City/State/Zipcode | Phone Number | | Organization | | | | + + + + + | [facility] | [address] | [place] | [phone] | | [facility] | | [address] | | | - LABORATORY | | | | + + + + + Extra Lavender Top Tube (12/28/2014 5:19 AM PST) + +-------+ + + + | Component | Value | Ref Range | Performed | Pathologist | | | | | At | Signature | + +-------+ + + + | Extra | Done | | [facility] | | | Lavender | | | [facility] | | | Top Tube | | | MEDICAL | | | [...] + | [facility] | [address] | [place] | [phone] | | [facility] | | [address] | | | - LABORATORY | | | | + + + + + Lipid Panel (12/28/2014 4:48 AM PST) + + + + + + | Component | Value | Ref Range | Performed | Pathologist | | | | | At | Signature | + + + + + + | Triglycerid | 143 | 35 - 160 mg/dL | [facility] | | | es | | | [facility] | | | | | | MEDICAL | | | | | | CENTER - | | | | | | LABORATORY | | + + + + + + | Cholesterol | 205 (H) | 150 - 200 mg/dL | [facility] | | | | | | [facility] | | | | | | MEDICAL | | | | | | CENTER - | | | | | | LABORATORY | | + + + + + + | HDL | 46Comment: New HDL | 28 - 83 mg/dL | [facility] | | | | Reference Range as of | | [facility] | | | | October 31, 2014 | | MEDICAL | | | | Values may be 10-20% | | CENTER - | | | | lower with new, | | LABORATORY | | | | standardized method. | | | | + + + + + + | Chol/HDL | 4.5 | | [facility] | | | Ratio | | | [facility] | | | | | | MEDICAL | | | | | | CENTER - | | | | | | LABORATORY | | + + + + + + | LDL, | 130 | <=130 mg/dL | [facility] | | | Calculated | | | [...] [facility]. | [address] | [place], [place] | [phone] | | [facility] | | [address] | | | - LABORATORY | | | | + + + + + Comprehensive Metabolic Panel (12/28/2014 4:48 AM PST) + + + + + + | Component | Value | Ref Range | Performed | Pathologist | | | | | At | Signature | + + + + + + | Na | 134 (L) | 136 - 149 | [facility] | | | | | mmol/L | [facility] | | | | | | MEDICAL | | | | | | CENTER - | | | | | | LABORATORY | | + + + + + + | K | 3.9 | 3.5 - 5.1 | [facility] | | | | | mmol/L | [facility] | | | | | | MEDICAL | | | | | | CENTER - | | | | | | LABORATORY | | + + + + + + | Cl | 104 | 98 - 109 mmol/L | [facility] | | | | | | [facility] | | | | | | MEDICAL | | | | | | CENTER - | | | | | | LABORATORY | | + + + + + + | CO2 | 22 (L) | 24 - 31 mmol/L | [facility] | | | | | | [facility] | | | | | | MEDICAL | | | | | | CENTER - | | | | | | LABORATORY | | + + + + + + | Anion Gap | 8 | 3 - 16 mmol/L | [facility] | | | | | | [facility] | | | | | | MEDICAL | | | | | | CENTER - | | | | | | LABORATORY | | + + + + + + | Glucose | 117 (H) | 70 - 109 mg/dL | [facility] | | | | | | [facility] | | | | | | MEDICAL | | | | | | CENTER - | | | | | | LABORATORY | | + + + + + + | BUN | 15 | 7 - 18 mg/dL | [facility] | | | | | | [facility] | | | | | | MEDICAL | | | | | | CENTER - | | | | | | LABORATORY | | + + + + + + | Creatinine | 0.77 | 0.60 - 1.30 | [facility] | [...] mL/min/1.73m2 | [facility] | | | Indian | RATE,ESTIMATED | | MEDICAL | | | | mL/min/1.11r3Jkjh than | | CENTER - | | [...] + + + + | Calcium | 8.7 | 8.3 - 10.5 | [facility] | | | | | mg/dL | [facility] | | | | | | MEDICAL | | | | | | CENTER - | | | | | | LABORATORY | | + + + + + + | Albumin | 3.3 | 3.2 - 5.0 g/dL | [facility] | | | | | | [facility] | | | | | | MEDICAL | | | | | | CENTER - | | | | | | LABORATORY | | + + + + + + | Bilirubin | 0.8Comment: This is an | 0.1 - 1.5 mg/dL | [facility] | | | Total | appended report. These | | [facility] | | | | results have been | | MEDICAL | | | | appended to a previously | | CENTER - | | | | preliminary verified | | LABORATORY | | | | report. | | | | + + + + + + | Total | 6.2 | 6.0 - 7.8 g/dL | [facility] | | | Protein | | | [facility] | | | | | | MEDICAL | | | | | | CENTER - | | | | | | LABORATORY | | + + + + + + | AST | 482 (H)Comment: This is | 10 - 42 U/L | [facility] | | | | an appended report. | | [facility] | | | | These results have been | | MEDICAL | | | | appended to a previously | | CENTER - | | | | preliminary verified | | LABORATORY | | | | report. | | | | + + + + + + | ALT | 93 (H)Comment: This is | 6 - 45 U/L | [facility] | | | | an appended report. | | [facility] | | | | These results have been | | MEDICAL | | | | appended to a previously | | CENTER - | | | | preliminary verified | | LABORATORY | | | | report. | | | | + + + + + + | Alkaline | 75Comment: This is an | 40 - 110 U/L | [facility] | | | Phosphatase | appended report. These | | [facility] | | | | results have been | | MEDICAL | | | | appended to a previously | | CENTER - | | | | preliminary verified | | LABORATORY | | | | report. | | | | + + + + + + | Globulin | 2.9 | g/dL | [facility] | | | | | | [facility] | | | | | | MEDICAL | | | | | | CENTER - | | | | | | LABORATORY | | + + + + + + | Albumin/Odalys | 1.1 | | [facility] | | | bulin Ratio | | | [facility] | | | | | | MEDICAL | | | | | | CENTER - | | | | | | LABORATORY | | + + + + + + | BUN/Creatin | 19.5 | | [facility] | | | ine [...] ST. | [address] | [place], [place] | [phone] | | [facility] | | [address] | | | - LABORATORY | | | | + + + + + CK Total (12/28/2014 4:48 AM PST) + + + + + + | Component | Value | Ref Range | Performed | Pathologist | | | | | At | Signature | + + + + + + | CK TOTAL | 6,222 (H) | 22 - 269 U/L | [facility] | | | | | | [facility] [address] | [place] | [phone] | | [facility] | | [address] | | | - LABORATORY | | | | + + + + + ECG 12 lead (12/28/2014 2:40 AM PST) + + + + + + | Component | Value | Ref Range | Performed | Pathologist | | | | | At | Signature | + + + + + + | VENTRICULAR | 93 | BPM | [facility] | | | RATE EKG | | | | | + + + + + + | ATRIAL RATE | 93 | BPM | [facility] | | + + + + + + | P-R | 174 | ms | [facility] | | | INTERVAL | | | | | + + + + + + | QRS | 76 | ms | [facility] | | | DURATION | | | | | + + + + + + | Q-T | 384 | ms | [facility] | | | INTERVAL | | | | | + + + + + + | Q-T | 477 | ms | [facility] | | | INTERVAL | | | | | | (CORRECTED) | | | | | + + + + + + | P WAVE AXIS | 81 | degrees | [facility] | | + + + + + + | QRS AXIS | 25 | degrees | [facility] | | + + + + + + | T AXIS | 82 | degrees | [facility] | | + + + + + + | INTERPRETAT | Normal sinus rhythmLow | | [facility] | | | ION TEXT | voltage QRSRight atrial | | | | | | enlargementCannot rule | | | | | | out Anteroseptal infarct | | | | | | (cited on or before | | | | | | 27-DEC-2014)Abnormal | | | | | | ECGWhen compared with | | | | | | ECG of 27-DEC-2014 | | | | | | 23:19, | | | | | | (Unconfirmed)Inverted T | | | | | | waves have replaced | | | | | | nonspecific T wave | | | | | | abnormality in Anterior | | | | | | leadsSerial changes of | | | | | | evolving MIConfirmed by | | | | | | CHANA RANGEL MD | | | | | | ([id number]) on 12/28/2014 | | | | | | 6:55:04 AM | | | | + + + + + + + + | Specimen | + + | | + + + + + | Narrative | Performed At | + + + | | | + + + + +---------+ + + | Performing | Address | City/State/Zipcode | Phone Number | | Organization | | | | + +---------+ + + | [facility] | | | | + +---------+ + + CV Adult Cardiac Cath Diag/PCI (12/28/2014 1:46 AM PST) + + | Specimen | + + | | + + + + + | Narrative | Performed At | + + + | [facility] Percutaneous Coronary Intervention | | | Report PATIENT NAME: Cielo Bell DATE OF : | | | 1950 DATE OF PROCEDURE: | | | 12/28/2014 | | | PRIMARY | | | CARE PROVIDER: Lance Pandya INTERVENTION TEACHER: Chana Rangel, | | | , [facility], [facility] PRE-PROCEDURE DIAGNOSIS: NSTEMI with ongoing | | | angina POST-PROCEDURE DIAGNOSIS: 100% LAD - stented with bare metal | | | PROCEDURES PERFORMED: 1. Percutaneous coronary | | | intervention via a radial approach: Bare Metal stent placement to | | | the LAD 2. Coronary angiography 3. EDP measurement | | | DESCRIPTION OF PROCEDURE: Informed consent was obtained from the | | | patient, and a time-out was performed to verify the patient's | | | identification and planned procedure. Please refer to the computer | | | log entry form for precise details. The patient's right radial | | | artery was then prepped and draped in the usual sterile fashion, and | | | anesthetized with 1% lidocaine. Arterial access was obtained | | | using a micropuncture kit. A 5-Armenian PAPA guide catheter was | | | cannulated into the coronary arteries. This did not offer enough | | | support to cross the occluded LAD. A 3.5 JL and A Forte wire was | | | manipulated through the lesion and positioned into the distal | | | vessel. The lesion was pre dilated with 2.5 X 15 balloon. | | | Next, a 2.5 X 20 and a 2.5 X 12 Rebel bare metal stents was | | | deployed at the lesion and expanded. A high pressure balloon was | | | used to 18 renu. Final angiography demonstrated an excellent result | | | with good distal runoff. A TR band occluder device was utilized | | | to achieve hemostasis of the radial artery. There were no | | | complications. Estimated blood loss was 7 cc. | | | Anticoagulation:Heparin Results: successful PCI of the LAD Bare | | | metal used due to the history of cerebral aneurysms CONCLUSIONS: | | | 1. Elevated EDP 35 2. No gradient on pullback 3. Normal Left main | | | 4. 100% Mid LAD 5. No residual stenosis and JOÃO 3 flow restored 6. | | | Minimal plaque of the LCX 7. 20-30% mid RCA with collaterals to the | | | LAD CLINICAL IMPRESSIONS AND RECOMMENDATIONS: The patient | | | should remain on dual antiplatelet therapy for at least a month ASA | | | lifetime Electronically authenticated and signed Chana Gandhi | | | MD Bell 12/28/2014 2:07 Portions of this chart were created | | | with [employer] voice recognition software. Occasional wrong-word or | | | | | | sound-alike | | | substitutions may have occurred due to the inherent limitations of | | | voice recognition software. Please read the chart carefully and | | | recognize, using context, where these substitutions have occurred | | | | | + + + POC ACT (12/28/2014 1:02 AM PST) + +---------+ + + + | Component | Value | Ref Range | Performed | Pathologist | | | | | At | Signature | + +---------+ + + + | Activated | 293 (H) | 125 - 175 | [facility] | | | Clotting | | second(s) | [facility] | | | Time, POC | | | MEDICAL | | | | | | CENTER - | | | | | | LABORATORY | | + +---------+ + + + + + | Specimen | + + | | + + + + + + + | Performing | Address | City/State/Zipcode | Phone Number | | Organization | | | | + + + + + | [facility] | [address] | [place], [place] | [phone] | | [facility] | | [address] | | | - LABORATORY | | | | + + + + + POC ACT (12/28/2014 12:49 AM PST) + +---------+ + + + | Component | Value | Ref Range | Performed | Pathologist | | | | | At | Signature | + +---------+ + + + | Activated | 218 (H) | 125 - 175 | [facility] | | | Clotting | | second(s) | [facility] | | | Time, POC | | | MEDICAL | | | | | | CENTER - | | | | | | LABORATORY | | + +---------+ + + + + + | Specimen | + + | | + + + + + + + | Performing | Address | City/State/Zipcode | Phone Number | | Organization | | | | + + + + + | [facility] | [address] | [place] | [phone] | | [facility] | | [address] | | | - LABORATORY | | | | + + + + + Extra Lavender Top Tube (12/28/2014 12:17 AM PST) + +-------+ + + + | Component | Value | Ref Range | Performed | Pathologist | | | | | At | Signature | + +-------+ + + + | Extra | Done | | [facility] | | | Lav[facility] | | | [facility] | | | Top Tube | | | MEDICAL | | | [...] [address] | [place] | [phone] | | [facility] | | [address] | | | - LABORATORY | | | | + + + + + Troponin I (12/28/2014 12:07 AM PST) + + + + + + | Component | Value | Ref Range | Performed | Pathologist | | | | | At | Signature | + + + + + + | Troponin I | 28.90 (HH)Comment: | <0.06 ng/mL | [facility] | | | | Reference | | [facility] | | | | Ranges:0.00-0.06 = | | MEDICAL | | | | NORMAL>0.06 = | | CENTER - | | | | SUSPICIOUS FOR | | LABORATORY | | | | MYOCARDIAL DAMAGE NOTE: | | | | | | Values greater than 0.50 | | | | | | ng/mL have been shown | | | | | | to be strongly | | | | | | associated with acute | | | | | | myocardial infarction. | | | | | | [employer] | | | | | | Cardiology (ACC) | | | | | | recommends a decision | | | | | | limit of 0.06 ng/mL for | | | | | | this assay. Results | | | | | | greater than 0.06 can | | | | | | reflect a pre-infarct | | | | | | acute coronary syndrome, | | | | | | but can also reflect | | | | | | myocardial necrosis or | | | | | | injury that is not due | | | | | | to coronary artery | | | | | | disease. Some of these | | | | | | causes are sepsis, | | | | | | hypocolemia, atrial | | | | | | fibrillation, heart | | | | | | failure, pulmonary | | | | | | embolism, myocarditis, | | | | | | myocardial contusion, | | | | | | and renal failure. The | | | | | | diagnosis of myocardial | | | | | | infarction should be | | | | | | based on a combination | | | | | | of the patient's | | | | | | clinical presentation | | | | | | and the clinical | | | | | | laboratory test results | | | | | | (especially serial | | | | | | troponin levels). Alert | | | | | | Value: Clinical Provider | | | | | | notification at Nurses | | | | | | discretion. | | | | + + + + + + + + | Specimen | + + | Blood | + + + + + + + | Performing | Address | City/State/Zipcode | Phone Number | | Organization | | | | + + + + + | [facility] | [address] | [place] | [phone] | | [facility] | | [id number] | | | - LABORATORY | | | | + + + + + LVEF VALUE (12/28/2014) + +-------+ + + + | Component | Value | Ref Range | Performed | Pathologist | | | | | At | Signature | + +-------+ + + + | LVEF-TTE | 54 | | | | | TRANSTHORAC | | | | | | IC ECHO | | | | | + +-------+ + + + ECG 12 lead (12/27/2014 11:19 PM PST) + + + + + + | Component | Value | Ref Range | Performed | Pathologist | | | | | At | Signature | + + + + + + | VENTRICULAR | 84 | BPM | [facility] | | | RATE EKG | | | | | + + + + + + | ATRIAL RATE | 84 | BPM | [facility] | | + + + + + + | P-R | 174 | ms | [facility] | | | INTERVAL | | | | | + + + + + + | QRS | 78 | ms | [facility] | | | DURATION | | | | | + + + + + + | Q-T | 368 | ms | [facility] | | | INTERVAL | | | | | + + + + + + | Q-T | 434 | ms | [facility] | | | INTERVAL | | | | | | (CORRECTED) | | | | | + + + + + + | P WAVE AXIS | 77 | degrees | [facility] | | + + + + + + | QRS AXIS | -2 | degrees | [facility] | | + + + + + + | T AXIS | 68 | degrees | [facility] | | + + + + + + | INTERPRETAT | Normal sinus | | [facility] | | | ION TEXT | rhythmAnteroseptal | | | | | | infarct , age | | | | | | undeterminedAbnormal | | | | | | ECGNo previous ECGs | | | | | | availableConfirmed by | | | | | | CHANA RANGEL MD | | | | | | ([id number]) on 12/28/2014 | | | | | | 6:53:08 AM | | | | + + + + + + + + | Specimen | + + | | + + + + + | Narrative | Performed At | + + + | | | + + + + +---------+ + + | Performing | Address | City/State/Zipcode | Phone Number | | Organization | | | | + +---------+ + + | [facility] | | | | + +---------+ + + documented in this encounter Visit Diagnoses Not on filedocumented in this encounter
--- OUTSIDE RECORDS SUMMARY | ~2019-10-16 | XMS | Encounter Summary ---
Demographics + + + | Address | [address] | | | [place] [address] | + + + | Home Phone | | + + + | Preferred Language | Unknown | + + + | Marital Status | | + + + | Jewish Affiliation | Unknown | + + + | Race | White | + + + | Ethnic Group | Not or | + + + Author + + + | Author | [facility] | | | and [place] | + + + | Organization | [facility] | | | and [...] Team Providers + +------+ + | Care Bookmobile Clerk Name | Role | Phone | [...] | (Primary Dx) | | | | [place], | [place], [place] | | | | | [place] [address] | [id number] | | | | | [phone] | | | +--------+ + + + [...]
--- OUTSIDE RECORDS SUMMARY | ~2019-10-16 | XMS | Encounter Summary ---
Demographics + + + | Address | [address] | | | [place] [address] | + + + | Home Phone | | + + + | Preferred Language | Unknown | + + + | Marital Status | | + + + | Mormon Affiliation | Unknown | + + + | Race | White | + + + | Ethnic Group | Not or | + + + Author + + + | Author | [facility] | | | and [place] | + + + | Organization | [facility] | | | [...] Team Providers + +------+ + | Care Prison Guard Name | Role | Phone | + +------+ + | Lance Pandya DO | PCP | | + +------+ + Reason for Visit + +--------+ + | Reason | Onset | Comments | | | Date | | + +--------+ + | Medication Refill | 10/24/ | | | | 2019 | | + +--------+ + Encounter Details +--------+ + + + + | Date | Type | Department | Care Team | Description | +--------+ + + + + | 10/24/ | Telephone | [facility] | Antoinette Carrizales, | Medication Refill | | 2019 | | [facility] [place] | [facility] | | | | | [address] | | | | | | [place] | | | | | | [address] | | | | | | [phone] | | | +--------+ + + + [...] this encounter Miscellaneous Notes Telephone Encounter - Antoinette Carrizales CMA - 10/24/2018 1:53 PM PDTPatient called lexi contreras medication refills. I explained to the patient she will need an appointment first andrew nolan it has been over [address] Hammond last she will need an appointment first. Patrick basilio stated she " doesn't know if she will be able to come here again" and I told her we wo uld not be able to fill any medications then. Patient verbalized understanding. Electronical ly signed by Antoinette Carrizales CMA at 10/24/2018 1:55 PM PDTdocumented in this encounter Plan of Treatment Not on filedocumented as of this encounter Visit Diagnoses Not on filedocumented in this encounter
--- OUTSIDE RECORDS SUMMARY | ~2019-10-16 | XMS | Encounter Summary ---
Demographics + + + | Address | [address] | | | [place] [address] | + + + | Home Phone | | + + + | Preferred Language | Unknown | + + + | Marital Status | | + + + | Christianity Affiliation | MET | + + + [...] Providers + +------+ + | Care Assistant Manager Of Operations Name | Role | Phone | + [...] + + + + | 09/19/ | Anesthesia | 6A Intra Op [id number] | Nimco Stanley DO | | | 2019 | Event | [address] | [address] | | | | | [facility] | [facility] | | | | | Hospital Admitting | [place] [address] | | | | | Desk Located on the | [phone] | | | | | 9th floor | | | | | | [place], [place] | Merari Sotomayor CRNA | | | | | [address] | [address] | | | | | | [facility], | | | | | | [place] [address] | | | | | | [phone] | | | | | | | | +--------+ + + + + Anesthesia Record + + + + + | Procedure Name | Responsible | Anesthesia Start | Anesthesia Stop Time | | | Anesthesiologist | Time | | + + + + + | DEBRIDEMENT OF | Nimco Stanley DO | 09/19/18 1217 | 09/19/18 1544 | | SCALP, SCALP | | | | | ROTATION FLAP (N/A | | | | | Head) | | | | + + + + + +----+---+ + + | Da | T | Event | Comment | | te | i | | | | | m | | | | | e | | | +----+---+ + + | 07 | 1 | Eq Check | Anesthesia machine checked Equipment verified | | /3 | 1 | | | | 0/ | 3 | | | | 20 | 6 | | | | 19 | | | | +----+---+ + + | | 1 | | | | | 1 | | | | | 5 | | | | | 0 | | | +----+---+ + + | | 1 | Pt. Check | Prior to anesthesia start, pt. Identified, examined, chart | | | 1 | | reviewed, PARQ held, anesthetic plan made or approved by | | | 5 | | attending anesthesiologist. NPO status confirmed as appropriate | | | 0 | | for procedure Preoperative evaluation: unchanged | +----+---+ + + | | 1 | An Start | | | | 2 | | | | | 1 | | | | | 7 | | | +----+---+ + + | | 1 | An Start | | | | 2 | Data | | | | 2 | | | | | 3 | | | +----+---+ + + | | 1 | Vitals | Monitors applied Vital signs checked Patient ready for anesthesia | | | 2 | Checked | | | | 2 | | | | | 7 | | | +----+---+ + + | | 1 | Abx | Zosyn running from the floor | | | 2 | Administere | | | | 2 | d | | | | 8 | | | +----+---+ + + | | 1 | ETT | | | | 2 | | | | | 3 | | | | | 4 | | | +----+---+ + + | | 1 | Ready | | | | 2 | | | | | 4 | | | | | 2 | | | +----+---+ + + | | 1 | Quick Note | Arterial line attempt abandoned. 4 attempts on right side by | | | 3 | | Светлана BETANCUR and Lizeth DO, ultrasound used, unable to place. Pt | | | 0 | | tolerated well, no hematoma, pulse still present | | | 0 | | | +----+---+ + + | | 1 | Timeout | | | | 3 | | | | | 3 | | | | | 7 | | | +----+---+ + + | | 1 | Incision | | | | 3 | | | | | 4 | | | | | 3 | | | +----+---+ + + | | 1 | AN | | | | 4 | Recruitment | | | | 0 | Breath | | | | 5 | | | +----+---+ + + | | 1 | Surgery end | | | | 5 | | | | | 4 | | | | | 1 | | | +----+---+ + + | | 1 | An Extubate | Neuromuscular function Intact. Pharynx suctioned. Patient obeys | | | 5 | | commands. Adequate pulmonary mechanics. | | | 4 | | | | | 3 | | | +----+---+ + + | | 1 | an stop | | | | 5 | data | | | | 4 | | | | | 3 | | | +----+---+ + + | | 1 | Anesthesia | | | | 5 | End | | | | 4 | | | | | 4 | | | +----+---+ + + | | 1 | PACU Rpt | | | | 5 | Given | | | | 5 | | | | | 5 | | | +----+---+ + + | | 1 | Post-Op | | | | 6 | Page | | | | 4 | | | | | 5 | | | +----+---+ + + +------+ | Meds | +------+ + + + | Name | Total | + + + | fentaNYL | 300 mcg | + + + | lidocaine 2% | 80 mg | + + + | propofol (DIPRIVAN) 200 mg | 50 mg | + + + | rocuronium | 50 mg | + + + | neostigmine | 2 mg | + + + | glycopyrrolate | 0.4 mg | + + + | ondansetron | 4 mg | + + + | dexamethasone | 8 mg | + + + | PHENYLEPHrine | 500 mcg | + + + | PHENYLEPHrine INF (25mg/250mL) | 2,087.4 mcg | + + + | piperacillin-tazobactam (ZOSYN) | 3.375 g | | IV (minibag+) 3.375 g | | + + + | vancomycin (VANCOCIN) IV 500 mg | 500 mg | + + + | albuterol inhaler | 8 puff | + + + | lactated ringers IV | 2,000 mL | + + + + + | Name | + + | O2 FR Avance (Total Liters) | + + | Air FR Avance (l/min) | + + | Insp Iso | + + | Et Iso | + + + + | No blood administrations on file. | + + +--------+ + + + | Type | Details | Placement | Removal | +--------+ + + + | Incisi | 09/19/18; 1343; Dr. White; head- | 09/19/18 1343 by | | | on | parietal | Meera Barrera RN | | +--------+ + + + | Wound | 09/14/18; 0700; Yes; Right; head; | 09/14/18 0700 by | 09/22/18 0759 by | | | Graft, Other (Comment) (Flap); | Becki Lane, | Rula Nguyen RN | | | 09/22/18; 0759 | RN | | +--------+ + + + | Periph | 09/18/18; 1029; Aniket Weaver, | 09/18/18 1029 by | 09/20/18 1000 by | | rosa Boyle RN; Left; Forearm; 22 g; No; | Aniket Weaver RN | Hue Hagen RN | | IV | Normal Saline; Yes; Positive; | | | | | 09/20/18; 1000; Site problems | | | +--------+ + + + | ETT | 09/19/18; 1234 (created via | 09/19/18 1234 by | 09/19/18 1543 by | | | procedure documentation); 7; | Merari Sotomayor CRNA | Merari Sotomayor CRNA | | | Oral; Cuffed; 09/19/18; 1543 | | | +--------+ + + + | Urethr | 09/19/18; 1244; Meera Barrera, | 09/19/18 1244 by | 09/19/18 1545 by | | rodolfo | ALEKSANDAR (Castile wipes, hibiclens | Meera Barrera RN | Sherita Kirkpatrick RN | | Cathet | prep, urine return, yellow); | | | | er | Kennedy; 16 Fr.; 10 mL; 09/19/18; | | | | | 1545 (removed at end of OR per OR | | | | | nursing report) | | | +--------+ + + + | Periph | 09/19/18; 1335; Au DO; Left; | 09/19/18 1335 by | 09/20/18 1157 by | | rosa | Hand; 18 g; None; No; Positive; | Merari Sotomayor CRNA | Hue Hagen RN | | IV | 09/20/18; 1157; Removed by | | | | | patient | | | +--------+ + + + | Drain | 09/19/18; 1504; Dr. White; LAZARA (7 | 09/19/18 1504 by | 09/22/18 0645 by | | | mm); Right; head- parietal; | Meera Barrera RN | Courtney Hankins RN | | | 09/22/18; 0645; Per order, Per | | | | | protocol (done by at [facility]) | | | +--------+ + + + [...] encounter OR Notes Anesthesia Postprocedure Evaluation - Merari Sotomayor CRNA - 09/19/2018 3:57 PM PDTFormatti ng of this note might be different from the original. Cielo Bell [id number] Vitals Value Taken Time BP 124/66 09/19/2018 3:54 PM Temp 36.2 C (97.2 F) 09/19/2018 3:54 PM Pulse 80 09/19/2018 3:55 PM Resp 18 09/19/2018 3:55 PM SpO2 100 % 09/19/2018 3:55 PM Vitals shown include unvalidated device data. EVALUATION VS (BP, HR, RR, SpO2, and Temp) and hydration status are stable ROS including Cards, Resp, Neuro, and GI without evidence of adverse effects No PONV Pain controlled No altered mental status COMPLICATIONS No adverse events nesthesia Procedure Notes - Merari Sotomayor CRNA - 09/19/2018 1:49 PM PDTAssociated Order(s): Art LineProcedure ART LINE Procedure Information Inserted: After Induction 20 minutes to perform. Type Catheter: Arrow kit Indications: Beat to beat blood pressure monitoring Location Performed: OR Informed Consent: Included in anesthesia consent Protective Barrier: Cap, Mask and Sterile Gloves Skin Prep: Chloraprep Draped: Partially draped Anesthesia Method: General anesthesia Insertion side: Right Insertion Site: Radial Access device: 20g Assessment Number of attempts: 4th or greater Complications: None Attending was physically present for the critical portions of the procedure as described in the procedure note Attending Name: Nimco Stanley DO Performed by PIPE TIE KNITTER HELPER Name: Merari Sotomayor CRNA nesthesia Procedure Not es - Merari Sotomayor CRNA - 09/19/2018 1:47 PM PDTAssociated Order(s): ETTAIRWAY MANAGEMENT - ETT Time of Placement: 09/19/2018 12:34 PM Intubation Reason: For surgical procedure Positioning: Supine Location Performed:OR OXYGENATION Patient was preoxygenated No apneic oxygenation Grade: Grade 2 - Ventilated by mask with oral airway/adjuvant Manual in-Line Stabilization: No Induction:Routine, without Cricoid Pressure INTUBATION ATTEMPT 1 Blade Type: Nidhi Blade #: 3 Intubation Adjuncts: w/ Stylet Laryngoscopic View: Grade I ETT DETAILS ETT Type:Standard, Hi-Lo Cuffed Intubation Type: Oral Cuff Status: Cuffed Size: 7 ETT secured with adhesive tape Depth at Lip: 21 cm Airway Leak: No CONFIRMATION Number of Attempts: 1 Atraumatic placement Positive for EtCO2:Waveform capnography Breath Sounds: Bilateral and equal Procedural Complications: Lip injury NARRATIVE Attending was physically present for the critical portions of the procedure as described in the procedure note Attending/Authorizing Provider: Nimco Stanley DO Performing Provider: Merari Sotomayor CRNA nesthesia Preprocedure Evaluation - Nimco Stanley DO - 09/19/2018 11:49 AM PDTFormatting of this note might be diff erent from the original. Cielo Bell [id number] Allergies Allergen Reactions [place] Tar Hives Betadine [Povidone-Iodine (With Soap)] Rash Cipro [Ciprofloxacin] Nausea and Vomiting Codeine Hcl Nausea and Vomiting Sulfa (Sulfonamide Antibiotics) Erythema NPO: > midnight Last Vitals Temp: 36.8 C (98.2 F) Heart Rate: 77 Resp: 16 BP: 111/60 SpO2: 94 % O2 Flow Rate: 3 LPM O2 Delivery Device: None (room air) Preg Status/LMP Patient Active Problem List Diagnosis Chronic obstructive pulmonary disease (HCC) HTN (hypertension) Chronic pain Skull defect Coronary arteriosclerosis in ho-chunk artery History of non-ST elevation myocardial infarction (NSTEMI) Continuous tobacco abuse Encounter for long-term (current) use of antibiotics Tobacco dependence Ischemic cardiomyopathy PONV (postoperative nausea and vomiting) Acute postoperative pain History of chronic respiratory failure History of cranioplasty Wound dehiscence Postoperative anemia due to acute blood loss Postoperative surgical complication involving skin associated with dermatologic procedu re, unspecified complication Past Surgical History Procedure Laterality Date Partial thyroidectomy Right Hysterectomy Bladder suspension 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 Indicatio ns: Pain Not Taking ATORVASTATIN 80 MG TABLET Take 80 mg by mouth once daily. 09/13/2018 IPRATROPIUM-ALBUTEROL 0.5 MG-3 MG(2.5 MG BASE)/3 ML NEBULIZATION SOLN Inhale 3 mL two times daily. Within last 30 days METOPROLOL SUCCINATE ER 50 MG TABLET,EXTENDED RELEASE 24 HR Take 50 mg by mouth once daily. 09/13/2018 NICOTINE 21 MG/24 HR DAILY TRANSDERMAL PATCH Apply 1 patch to skin once daily. Within last 7 days POLYETHYLENE GLYCOL 3350 17 GRAM ORAL POWDER PACKET Mix 1 packet and take orally three time s daily as needed (1st line - for no BM for 2 days). Indications: constipation Not Taking SPIRONOLACTONE 25 MG TABLET Take 25 mg by mouth once daily. 09/13/2018 Lab Results Component Value Date RATE 66 09/19/2018 ATRIALRATE 67 09/19/2018 DC 172 09/19/2018 QRS 92 09/19/2018 QT 437 [...] for any reason. Patient wishes to proceed. I also had a long PARQ with patient re: risk of stroke/TIA because her facial droop may sti ll be caused by TIA/stroke. Pt. Wishes to proceed. PATIENT'S CODE STATUS IN OR FULL - full code documented in this encou nter Miscellaneous Notes Addendum Note - Merari Sotomayor CRNA - 09/20/2018 2:06 PM PDT Addendum created 09/20/18 1406 by Merari Sotomayor CRNA Intraprocedure Meds edited MC/ANE PreOp Note - Nimco Stanley DO - 09/19/2018 12:24 PM PDTROS: HPI: PMH: -hypertension -CAD - prior STEMI s/p BMS (denies symptoms since last UT ~2 years prior -COPD - 3L O2 at night, current smoker -denies GERD Prior Anesthetic Problems: No Pulmonary: Current every day smoker 50 pack year smoker, currently not using O2 at night no shortness of breath cough chronic Pt. Has no asthma COPD (O2 at night) severe (O2) No dx of sleep apnea Cardiovascular: Activity:Pt reports being able to go up multiple flights of steps without SOB. ECGs reviewed, showing anterolateral Q waves suggestive of prior infarction. NSR. Summary: -- Echo (03/02/17 - [facility]): TDS, EF 35-40%, apical 1/3 is aneurysmal, with akinesis in focal a reas of dyskinesis. Grade 1 diastolic dysfunction. Normal RV size and function. Mild AI -- Cardiac Cath (09/15/16): Left ventricular end-diastolic pressure 25. LM-normal. Proximal- mid LAD with patent stents, 40% ISR, FFR 0.85. LCx-normal, OM2-20%. RCA proximal-20%, mid-30 % -- Lexiscan Cardiolite [facility] Severe LV enlargement, marked scarring (co mprising approximately 60% of the entire LV) of the entire anterior, anteroseptal, mid and d istal inferior, inferoseptal, inferolateral and anterolateral segments with no evidence of i schemia, EF 16% -- Echo (12/28/14-[facility]): EF 54%, apical hypokinesis, grade 1 diastolic dysfunction, mild AI -- Cardiac Cath / PCI (12/28/14 - [facility]): LVEDP 35, LM-normal, mid LAD- occluded [...] function. 5. There is mild aortic regurgitation. Functional Capacity: Low - cyanosis, palpitations and syncope no PAD no chest pain CHF EF by Echo: 35-40 NYHA Cla ssification:III Type:diastolic and left heart hypertension well controlled CAD Sx (BMS x2 LA D 12/2015) medically managed cardiac stents past UT Last UT: > 1 year valvular problems /murmurs AR [...] cranioplasty due to wound dehiscence, MR SA infection. Pt. Was seen in ER sandip recently for possible TIA. MRI was recommended but not done. I spoke with Dr. White regarding her facial droop. Dr. White feels that she did not have TIA, but rather facial droop was related to her infected flap. Head Conditions: aneurysm/AVM and hem orrhage no pain Current pain score: 0 Musculoskeletal: no arthritis Heme/Onc: Lab Results Component Value Date WBC 7.32 07/10/2018 HB 13.6 07/10/2018 HCT 40.7 07/10/2018 PLT 253 07/10/2018 MCV 94.4 07/10/2018 RDW 50.2 07/10/2018 Pt. has: no active bleeding Hemoglobin Disorders anemia Infectious Disease: MRSA Skin: no open wounds Physical Exam General: Appearance: No distress LOC: Alert Arousability: Arouses to [...] Status: Normal Skin: Color: skin color normal MC/ANE PreOp Note - Merari Vaca CRNA - 09/19/2018 11:46 AM PDTROS: HPI: PMH: -hypertension -CAD - prior STEMI s/p BMS (denies symptoms since last UT ~2 years prior -COPD - 3L O2 at night, current smoker -denies GERD Prior Anesthetic Problems: No Pulmonary: Current every day smoker 50 pack year smoker, currently not using O2 at night no shortness of breath cough chronic Pt. Has no asthma COPD (O2 at night) severe (O2) No dx of sleep apnea Cardiovascular: Activity:Pt reports being able to go up multiple flights of steps without SOB. ECGs reviewed, showing anterolateral Q waves suggestive of prior infarction. NSR. Summary: -- Echo (03/02/17 - [facility]): TDS, EF 35-40%, apical 1/3 is aneurysmal, with akinesis in focal a reas of dyskinesis. Grade 1 diastolic dysfunction. Normal RV size and function. Mild AI -- Cardiac Cath (09/15/16): Left ventricular end-diastolic pressure 25. LM-normal. Proximal- mid LAD with patent stents, 40% ISR, FFR 0.85. LCx-normal, OM2-20%. RCA proximal-20%, mid-30 % -- Lexiscan Cardiolite stress test (07/27/16-[facility]): Severe LV enlargement, marked scarring (co mprising approximately 60% of the entire LV) of the entire anterior, anteroseptal, mid and d istal inferior, inferoseptal, inferolateral and anterolateral segments with no evidence of i schemia, EF 16% -- Echo (12/28/14-[facility]): EF 54%, apical hypokinesis, grade 1 diastolic dysfunction, mild AI -- Cardiac Cath / PCI (12/28/14 - [facility]): LVEDP 35, LM-normal, mid LAD- occluded [...] function. 5. There is mild aortic regurgitation. Functional Capacity: Low - cyanosis, palpitations and syncope no PAD no chest pain CHF EF by Echo: 35-40 NYHA Cla ssification:III Type:diastolic and left heart hypertension well controlled CAD Sx (BMS x2 LA D 12/2015) medically managed cardiac stents past UT Last UT: > 1 year valvular problems /murmurs AR [...] no open wounds Physical Exam General: Appearance: No distress LOC: Alert Arousability: Arouses to [...] Status: Normal Skin: Color: skin color normal From 09/12/2018 ED visit (See outside records from 09/12/2018 in the Media tab for full docum ent) Patient declined admission to hospital and MRI brain. documented in this en counter Plan of Treatment Not on filedocumented as of this encounter Procedures + +--------+ + + + | Procedure Name | Priori | Date/Time | Associated Diagnosis | Comments | | | ty | | | | + +--------+ + + + | ANE ART LINE | Routin | 09/19/2018 | | Results for this | | | e | 1:49 PM | | procedure are in the | | | | PDT | | results section. | + +--------+ + + + | ANE ETT | Routin | 09/19/2018 | | Results for this | | | e | 1:47 PM | | procedure are in the | | | | PDT | | results section. | + +--------+ + + + documented in this encounter Results Art Line (09/19/2018 1:49 PM PDT) + + + | Narrative | Performed At | + + + | Merari Sotomayor CRNA 09/19/2018 1:50 PM Procedure ART LINE | | | Procedure Information Inserted: After Induction 20 minutes to | | | perform. Type Catheter: Arrow kit Indications: Beat to beat blood | | | pressure monitoring Location Performed: OR Informed Consent: | | | Included in anesthesia consent Protective Barrier: Cap, Mask and | | | Sterile Gloves Skin Prep: Chloraprep Draped: Partially draped | | | Anesthesia Method: General anesthesia Insertion side: Right | | | Insertion Site: Radial Access device: 20g Assessment | | | Number of attempts: 4th or greater Complications: None Attending | | | was physically present for the critical portions of the procedure | | | as described in the procedure note Attending Name: Nimco Stanley DO | | | Performed by PIPE BETANCUR Name: Merari Sotomayor CRNA | | + + + ETT (09/19/2018 1:47 PM PDT) + + + | Narrative | Performed At | + + + | Merari Sotomayor CRNA 09/19/2018 1:48 PM AIRWAY MANAGEMENT - | | | ETT Time of Placement: 09/19/2018 12:34 PM Intubation Reason: For | | | surgical procedure Positioning: Supine Location Performed:OR | | | OXYGENATION Patient was preoxygenated No apneic oxygenation Grade: | | | Grade 2 - Ventilated by mask with oral airway/adjuvant Manual | | | in-Line Stabilization: No Induction:Routine, without Cricoid Pressure | | | INTUBATION ATTEMPT 1 Blade Type: Nidhi Blade #: 3 | | | Intubation Adjuncts: w/ Stylet Laryngoscopic View: Grade I ETT | | | DETAILS ETT Type:Standard, Hi-Lo Cuffed Intubation Type: Oral Cuff | | | Status: Cuffed Size: 7 ETT secured with adhesive tape Depth at | | | Lip: 21 cm Airway Leak: No CONFIRMATION Number of Attempts: 1 | | | Atraumatic placement Positive for EtCO2:Waveform capnography Breath | | | Sounds: Bilateral and equal Procedural Complications: Lip injury | | | NARRATIVE Attending was physically present for the critical | | | portions of the procedure as described in the procedure note | | | Attending/Authorizing Provider: Nimco Stanley DO Performing Provider: | | | Merari Sotomayor CRNA | | + + + documented in this encounter Visit Diagnoses Not on filedocumented in this encounter Administered Medications + +--------+ +---------+------+------+ | Medication Order | MAR | Action | Dose | Rate | Site | | | Action | Date | | | | + +--------+ +---------+------+------+ | albuterol (PROVENTIL, VENTOLIN) | Given | 09/20/19 | 8 puffs | | | | 90 mcg/actuation inhaler | | 19 3:36 | | | | | INTRAPROCEDURE PRN, Starting Tue | | PM PDT | | | | | 09/19/18 at 1536, Until Tue | | | | | | | 09/19/18 at 1544 | | | | | | + +--------+ +---------+------+------+ +---+---+ | | | +---+---+ + +-------+ +------+---+---+ | dexamethasone (DECADRON) | Given | 09/20/19 | 8 mg | | | | injection intravenous, | | 19 12:31 | | | | | INTRAPROCEDURE PRN, Starting Tue | | PM PDT | | | | | 09/19/18 at 1231, Until Tue | | | | | | | 09/19/18 at 1544 | | | | | | + +-------+ +------+---+---+ +---+---+ | | | +---+---+ + +-------+ +--------+---+---+ | fentaNYL (SUBLIMAZE) injection | Given | 09/20/19 | 50 mcg | | | | intravenous, INTRAPROCEDURE PRN, | | 19 3:09 | | | | | Starting 09/19/18 at 1231, | | PM PDT | | | | | Until 09/19/18 at 1544 | | | | | | + +-------+ +--------+---+---+ +-------+ +--------+---+---+ | Given | 09/20/19 | 50 mcg | | | | | 19 3:00 | | | | | | PM PDT | | | | +-------+ +--------+---+---+ | Given | 09/20/19 | 50 mcg | | | | | 19 2:00 | | | | | | PM PDT | | | | +-------+ +--------+---+---+ +---+---+ | | | +---+---+ + +-------+ +--------+---+---+ | glycopyrrolate (ELSAUL) | Given | 09/20/19 | 0.4 mg | | | | injection INTRAPROCEDURE PRN, | | 19 3:22 | | | | | Starting Tue09/19/18 at 1522, | | PM PDT | | | | | Until Tue09/19/18 at 1544 | | | | | | + [...] PF (XYLOCAINE MPF) 20 | Given | 09/20/19 | 80 mg | | | | mg/mL (2 %) injection | | 19 12:31 | | | | | INTRAPROCEDURE PRN, Starting Tue | | PM PDT | | | | | 09/19/18 at 1231, Until Tue | | | | | | | 09/19/18 at 1555 | | | | | | + +-------+ +-------+---+---+ +---+---+ | | | +---+---+ + +-------+ +------+---+---+ | neostigmine (PROSTIGMIN) | Given | 09/20/19 | 2 mg | | | | injection intravenous, | | 19 3:22 | | | | | INTRAPROCEDURE PRN, Starting Tue | | PM PDT | | | | | 09/19/18 at 1522, Until Tue | | | | | | | 09/19/18 at 1544 | | | | | | + +-------+ +------+---+---+ +---+---+ | | | +---+---+ + +-------+ +------+---+---+ | ondansetron (ZOFRAN) injection | Given | 09/20/19 | 4 mg | | | | intravenous, INTRAPROCEDURE PRN, | | 19 3:19 | | | | | Starting 09/19/18 at 1519, | | PM PDT | | | | | Until 09/19/18 at 1544 | | | | | | + +-------+ +------+---+---+ +---+---+ | | | +---+---+ + +-------+ +---------+---+---+ | PHENYLEPHrine 100 mcg/mL IV | Given | 09/20/19 | 200 mcg | | | | syringe INTRAPROCEDURE PRN, | | 19 2:38 | | | | | Starting 09/19/18 at 1347, | | PM PDT | | | | | Until e 09/19/18 at 1544 | | | | | | + +-------+ +---------+---+---+ +-------+ +---------+---+---+ | Given | 09/20/19 | 100 mcg | | | | | 19 2:33 | | | | | | PM PDT | | | | +-------+ +---------+---+---+ | Given | 09/20/19 | 100 mcg | | | | | 19 2:24 | | | | | | PM PDT | | | | +-------+ +---------+---+---+ +---+---+ | | | +---+---+ + + + + +--------+---+ | PHENYLEPHrine 25 mg/250 mL (0.1 | Rate/Dos | 09/20/19 | 0.4 | 11.76 | | | mg/mL) IV infusion (ADC) | e Change | 19 3:09 | mcg/kg/m | mL/hr | | | intravenous, INTRAPROCEDURE | | PM PDT | in | | | | CONTINUOUS PRN, Starting Tue | | | | | | | 09/19/18 at 1406, Until Tue | | | | | | | 09/19/18 at 1544 | | | | | | + + + + +--------+---+ + + + +--------+---+ | Rate/Dose Change | 09/20/19 | 0.6 | 17.64 | | | | 19 3:05 | mcg/kg/m | mL/hr | | | | PM PDT | in | | | + + + +--------+---+ | Rate/Dose Change | 09/20/19 | 1 | 29.4 | | | | 19 2:56 | mcg/kg/m | mL/hr | | | | PM PDT | in | | | + + + +--------+---+ +---+---+ | | | +---+---+ + +-------+ +---------+---+---+ | piperacillin-tazobactam (ZOSYN) | Bolus | 09/20/19 | 3.375 g | | | | IV (minibag+) 3.375 g 3.375 g, | | 19 12:28 | | | | | intravenous, EVERY 8 HOURS, First | | PM PDT | | | | | dose on [facility] 09/14/18 at 1630, | | | | | [...] (DIPRIVAN) 200 mg | New Bag | 09/20/19 | 50 mg | | | | intravenous, INTRAPROCEDURE | | 19 12:31 | | | | | CONTINUOUS PRN, Starting Tue | | PM PDT | | | | | 09/19/18 at 1231, Until Tue | | | | | | | 09/19/18 at 1544 | | | | | | + +---------+ +-------+---+---+ +---+---+ | | | +---+---+ + +-------+ +-------+---+---+ | rocuronium (ZEMURON) injection | Given | 09/20/19 | 50 mg | | | | intravenous, INTRAPROCEDURE PRN, | | 19 12:31 | | | | | Starting 09/19/18 at 1231, | | PM PDT | | | | | Until 09/19/18 at 1544 | | | | | | + +-------+ +-------+---+---+ +---+---+ | | | +---+---+ + +---------+ +--------+---+---+ | vancomycin (VANCOCIN) IV 500 mg | New Bag | 07/30/20 | 500 mg | | | | [...] +---------+ +--------+---+---+ +---+---+ | | | +---+---+ documented in this encounter
--- OUTSIDE RECORDS SUMMARY | ~2019-10-16 | XMS | Encounter Summary ---
Demographics + + + | Address | [address] | | | [place] [address] | + + + | Home Phone [...] + + + | Author | [facility] | | | and [place] | + + + | Organization | [facility] | | [...] Team Providers + +------+ + | Care Pole Shaver Helper Name | Role | Phone | [...] Provider Unknown | | | | | [place], [place] | [phone] | | | | | [address] | | | | | | [phone] | | | +--------+ + + + [...]
--- OUTSIDE RECORDS SUMMARY | ~2019-10-16 | XMS | Encounter Summary ---
Demographics + + + | Address | [address] | | | [place] [address] | + + + | Home Phone [...] Team Providers + +------+ + | Care Photo Technologist Name | Role | Phone | + [...] + + + + | 06/07/ | Hospital | [address] | Beny Cruz, | | | 2015 - | Encounter | [facility] [address] | [place] [address] [facility] | | | | | [facility] | [address] | | | 06/08/ | | [place], [place] | [place] | | | 2014 | | [address] | [address] | | | | | [phone] | [phone] | | | | | | | [...] Attending Physician: Beny Cruz MD PCP: Remington Leory Md, MD Admission Date: 06/07/2014 Discharge Date: [...] Physician: MD KASHIF ESPOSITO MD Otolaryngology, PGY1 [id number] signed by Beny Cruz MD at 06/10/2014 [...] to maintain suction. Thank you for choosing [facility] for your care and for staying with us on 5B Day Stay Unit. It h as been a pleasure caring for you! Discharge Nurse: ALMITA MARQUEZ Date: 06/08/2014 Discharge Time: 10:31 AM AttachmentsThe following attachments cannot be sent through Care Everywhere.COPD: CLEARING LUNGS : GENERAL INFO ([place])SURGICAL DRAIN CARE ([place])documented in this encounter Progress Notes Kashif Sunshine [...] Otolaryngology Head and Neck Surgery, PGY-1 Pager [phone] documented in this en counter H&P Notes [...] PDTAssociated Order(s): PROCEDURE NOTEOPERATIVE NOTE Cielo Bell [id number] Date of Surgery: 06/07/2014 Attending Surgeon: Beny Cruz MD Box Order Person(s): SEBASTIAN MICHELLE MD and Angel Mazariegos MD [...] reached approximately the level of the bony income auditor y canal. At this point of [...] the patient was then turned over to [facility] for reversal of anesthesia. After the smooth [...] - 015 10:14 PM PDT andoff - M Almita Hernandez RN - 06/08/2014 12:02 PM PDTNursing Discharge Note Discharge Date: 06/08/2014 Additional Discharge Information: Patient discharge to home per MD discharge order. PIV's d iscontinued. Patient received and understands all [facility] discharge teaching literature and EPI C discharge [...] 91 % (06/08/14 1146) Ambulated patient?: Yes (06/08/14 114) SpO2 on room air with ambulation (%): 89 % (06/08/14 1146) Dyspnea Index - Before: 0 (06/08/14 1146) Dyspnea Index - After: 0 (06/08/14 114) Questions about the O2 evaluation can be referred to the RT Glass Sagger by paging [phone] Comments: Pt. Does not qualify for home oxygen.Electronically signed by Dougie Bright RCP at 06/08 11:51 AM PDTHandoff - Almita Marquez RN - 06/08/2014 11:32 AM PDTPrimary focus o f stay: Right superficial parotidectomy with nerve preservation 06/07 Pertinent history/background: Smoking, brain aneurysm and [employer] Molder shunt placement, MRSA, COPD, HTN, CVA Comprehensive assessment: Pain assessment: Pt states her pain is #4/10 but does not want pain meds. Pt states h er discomfort is manageable. Spiritual, psych/social findings: Very pleasant woman. Family involved in care. Radha alejandre 02/2013. Medical findings: VSS, A&O X4, OOB to commode, steady on feet, R LAZARA drain, minimal draina ge output. 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 1-2L of O2 & trying to [...] with discussion with MD and RT DC business planner. Gave pt education at discharge for : COPD: Clearing Lungs. Pt denied pain and any interventions this shift My recommendations forward: Care is complete and pt has been discharged. 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 Pt states h er discomfort is manageable. Spiritual, psych/social findings: Very pleasant woman. Family involved in care. Radha alejandre 02/2013. Medical findings: VSS, A&O X4, OOB to commode, steady on feet, R LAZARA drain, minimal chao inage output. R neck incision, MARILYN, CDI. 4L of O2 & trying to [...] Prior medical history: Smoking, brain aneurysm and Toilet [employer] Molder shunt placement, MRSA, COPD, HTN, CV A [...] c et db. Upright in bed. Anabel love giving a breathing treatment. Anticipated post-op needs/devices/follow [...] Additional pain medication information: Functional Epidural: N/A GREY ROLL WORKER: N/A Respiratory: RR: 14, O2 Sat: 96 %, O2 Delivery: Oxymask Breath Sounds: WDL Except DARIEN: LLL: RUL: RLL: MELISSA No Comment: Cardiac: BP: 113/56 mmHg HR: 76 GI: Nausea/Vomiting Status: Yes- Zofran given. Pt states it's better now. Signs/Symptoms: Interventions: Assessment: Comments: : Last void: Around 0730 this am. Will bladder scan soon. Contact Name: Linda disla Contact Number: [phone] Family contacted: No Comment: Belongings: documented in [...] seen | | | | | | by:Remington Simon, | | | | | | Narinder/Surgical Pathology | | | | | | Lor Granda | | | | | | [place], M.D., | | | | | | Ph.D./PathologistT:06/10 | | | | | | //rdl Clinical | | | | | | [...] greatest | | | | | | dimension.Pan Tank Worker | | | | | | sections are submitted. | | | | | | Cassette | | | | | | Index:A1, uninvolved | | | | | | parotid parenchymaA2, | | | | | | cyst wall nearest | | | | | | parotid parenchymal | | | | | | marginA3-6, | | | | | | applications sales representative sections | | | | | [...] | + + + + + | [facility] | [address] | [place] [address] | | | PATHOLOGY | [address] [...] solution 1 dose, | | | Starting Tue06/07/14 at 1111, | | | Until Tue06/07/14 [...] +-------+-------+---+ +---+---+ | | | +---+---+ + + [...] PDT | | | | | Starting 06/07/14 at 0758, | | | | | | | Until 06/07/14 at 1017, | | | | | [...] injection | | | 1 dose, Starting Tue06/07/14 at | | | 1014, Until Tue06/07/14 at 1017 | | + +---+ | | | + +---+ + +-------+ + +---+---+ | senna-docusate (SENOKOT S) | Given | 06/08/19 | 1 tablet | | | | 8.6-50 mg 1 tablet 1 tablet, | | 15 10:22 | | | | | oral, TWICE DAILY, First dose on | | PM PDT | | | | | Tue06/07/14 at 1100, Until | | | | | | | Discontinued | | | | | | + +-------+ + +---+---+ +---+---+ | | | +---+---+ documented in this encounter
--- OUTSIDE RECORDS SUMMARY | ~2019-10-16 | XMS | Encounter Summary ---
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 Gas Name | Role | Phone | + [...] SYNTHETIC | | 2015 | | [facility] | [address] | CRANIOPLASTY | | | | Rd [facility] | [place], [place] | | | | | Hospital Admitting | [address] | | | | | Desk Located on the | [phone] | | | | | 9th floor | | | | | | [place], [place] | | | | | | [address] | | | +--------+---------+ + + + [...] + documented in this encounter Discharge Summaries Pitor Townsend MD - 10/25/2015 11:43 AM PDTFormatting [...] of major salivary glands Goiter CAD in northway artery Comment:s/p NSTEMI 12/27/2014; status post stent [...] shortly before that appointment she suffered an WI and was placed on aspirin and Plavix [...] 11/07/2015 11:30 AM NSG FELLOW Neurosurgery at [facility] Destination: Destination: Home Condition on Discharge Good Future Appointments Provider Department Dept Phone [place] 11/07/2015 11:30 AM NSG FELLOW Neurosurgery at [facility] [phone] Neurosurgery Warning Symptoms and Signs If you [...] clinic hours, M-F 7:30-4:30 pm, please call [phone] or after hours call Neurosu rgery resident at [phone] Pain Medications DO NOT restart plavix until [...] Physician: MD Piotr Woods MD Neurosurgery Resident [id number] documented in this encou nter Progress Notes Frances Mcfadden PA - 10/24/2015 11:58 AM PDTFormatting of this note might be differen t from the original. . Neuroscience Intensive Care Unit Team Progress Note NSICU ASSIGNED #[id number] Admission dx: m95.2 1 Days in ICU 1 Days in Hospital Abbreviated HPI / Daily Assessment Cielo Bell is a 65 y/o F smoker w/ hx COPD, CAD w/ WI s/p Stents in Dec 2014, with hx [...] treatment team members Provider Role Ipt Neurosurgery #[id number] Treatment Team Ipt Critical Care Nsicu #[id number] Treatment Team Patient Lines/Drains/Airways Status Active Lines, [...] e. Date of Service: 10/24/2015 ANSON Chatterjee [facility] DEPARTMENT: ANE ICU NEURO Place of Service:- Inpatient CSN: [id number] Suggested Modifier: None Suggested CPT: TO DRAW FRAME OPERATOR ANSON Irvin Author:ANSON Chatterjee [facility] [address] [place] [address] Jerzy Saez MD - 10/24/2015 10:36 AM PDT . Neuroscience Intensive Care Unit Attending Progress Note Attending Pager #[phone] Hospital admission dx: m95.2 1 Days in ICU 1 Days in Hospital Abbreviated HPI / Daily Assessment Cielo Bell is a 65 y/o F smoker w/ hx COPD, CAD w/ WI s/p Stents in Dec 2014, with hx [...] treatment team members Provider Role Ipt Neurosurgery #[id number] Treatment Team Ipt Critical Care Nsicu #[id number] Treatment Team The Advanced Care Note for [...] and the recent imaging available. Seen with PA/DIP TANKER Ashish Mcfadden. Please see their note for details. I reviewed the documented findings, all data and the recent imaging available. Date of Service: 10/24/2015 Author:Jerzy Centeno MD [facility] [address] 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 . Neuroscience Intensive Care Unit Attending Progress Note Attending Pager #[phone] Hospital admission dx: m95.2 Days in ICU Days in Hospital Abbreviated HPI / Daily Assessment Cielo Bell is a 65 y/o F smoker w/ hx COPD, CAD w/ WI s/p Stents in Dec 2014, with hx [...] treatment team members Provider Role Ipt Neurosurgery #[id number] Treatment Team Ipt Critical Care Nsicu #[id number] Treatment Team The Advanced Care Note for [...] recent imaging available. Date of Service: 10/23/2015 [facility] DEPARTMENT: ANE ICU NEURO Place of Service:- Inpatient CSN: [id number] Suggested Modifier: None Suggested CPT: TO DRAW FRAME OPERATOR Author:Georgia Rosado MD [address] [address] [place] [address] Cammie Maria MD - 10/22 10:35 AM [...] in bed Cammie Ramos MD Neurosurgery PGY2 [id number] documented in this encounte r H&P Notes Jerzy Centeno MD - 10/23/2015 4:36 PM PDTFormatting of this note might be different fr om the original. . Neuroscience Intensive Care Unit Attending H&P Note Attending Pager #[phone] Admission dx: m95.2 Days in ICU Days in Hospital HPI Cielo Bell is a 65 y/o F smoker w/ hx COPD, CAD w/ WI s/p Stents in Dec 2014, with hx of rupture Acomm aneurysm s/p clipping in 2007. 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 She was seen in neurosurgery clinic for follow up in Dec 2014 sh ortly after her WI. At that clinic appt 12/2014, she was noted to have a Right frontal scre w protrusion. Due to her recent WI and bare metal stent placement, she was [...] thrombosis. Restart home metop and pravastatin. O2 OR N at night. Regular diet, SCDs. Should [...] treatment team members Provider Role Ipt Neurosurgery #[id number] Treatment Team Ipt Critical Care Nsicu #[id number] Treatment Team This patient does not have [...] and the recent imaging available. Seen with PA/DIP TANKER Ephraim Mcfadden. Please see their note for details. I reviewed the documented findings, all data and the recent imaging available. Date of Service: 10/23/2015 Author:Jerzy Centeno MD [address] [address] Frances Baldwin PA - 10/23/2015 4:08 PM PDT . Neuroscience Intensive Care Unit Team H&P Note NSICU ASSIGNED #[id number] Days in ICU Days in Hospital POD#0 s/p R synthetic cranioplasty Admitting Provider: MAGNOLIA DIEGO Ray is a 65 y/o F smoker w/ hx COPD, CAD w/ WI s/p Stents in Dec 2014, with hx of rupture Acomm aneurysm s/p clipping in 2007. 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 She was seen in neurosurgery clinic for follow up in Dec 2014 sh ortly after her WI. At that clinic appt 12/2014, she was noted to have a Right frontal scre w protrusion. 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 CAD in northway artery s/p NSTEMI 12/27/2014; status post stent placement in the mid LAD Abnormal LFTs (liver function tests) MRSA (methicillin resistant staph aureus) culture positive post cariotomy for SAH Continuous tobacco abuse Past Surgical History Procedure Laterality Date Partial thyroidectomy Right Hysterectomy Cholecystecomy Bladder suspension 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 Skein Bleacher shunt Tympanoplasty Right 1987 Lumpectomy of left breast 1979 Coronary stent placement 12/28/2014 status post stent placement in the mid LAD Allergies Allergen Reactions Kent Tar Hives Betadine [Povidone-Iodine (With Soap)] Unknown [...] treatment team members Provider Role Ipt Neurosurgery #[id number] Treatment Team Ipt Critical Care Nsicu #[id number] Treatment Team Patient Lines/Drains/Airways Status Active Lines, [...] e. Date of Service: 10/23/2015 ANSON Chatterjee [facility] DEPARTMENT: [facility] ICU NEURO Place of Service:- Inpatient CSN: [id number] Suggested Modifier: None Suggested CPT: TO DRAW FRAME OPERATOR ANSON Irvin Author:ANSON Chatterjee [address] [email or web address] signed by ANSON Irvin at 10/23/2015 5:38 [...] Allergies reviewed / updated Allergies Allergen Reactions Kent Tar Hives Betadine [Povidone-Iodine (With Soap)] Unknown [...] of major salivary glands Goiter CAD in northway artery s/p NSTEMI 12/27/2014; status post stent placement in the mid LAD Abnormal LFTs (liver function tests) MRSA (methicillin resistant staph aureus) culture positive post cariotomy for SAH Past surgery reviewed and updated Past Surgical History Procedure Date Partial thyroidectomy Hysterectomy Cholecystecomy Bladder suspension 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 Skein Bleacher shunt Tympanoplasty 1987 Lumpectomy of left breast [...] Alert and appropriate; nl affect. alert Findings: Food And Beverage Intern nial nerves 2-12 intact, Motor 5/5 strength [...] to this patient's care. Mable Lee MD [facility] PREOPERATIVE [facility]IC[facility]IC AT [facility] 4TH FLOOR DAY STAY [address] [facility] [address] I spent time counseling the pt regarding [...] ice: 10/23/2015 Attending Surgeon: Magnolia Diego MD Customer Service Officer(s): Antoinette Del Valle MD, PhD Dameon Scanlon [...] shortly before that appointment she suffered an WI and was placed on as pirin and [...] br ought to the operating room on [facility]. She was sedated and intubated without diffi [...] Antoinette Adkins MD, PhD MD XI Woods/NGUYEN /[id number] I, Dr. Magnolia Diego, was the primary surgeon and in the OR during the critical portions of this procedure. There was no complication. Magnolia Diego MD [facility] NSI [address]ohs[address] [address] rause, Antoinette Gomez MD,PhD - 10/23/2015 10:08 [...] manipulated Disposition: PACU, cooper Antoinette Adkins MD,PhD [id number] signed by Magnolia Diego MD at 10/24/2015 [...] to be able to sleep tonight (10/24/152039) [facility] IP NURSE HANDOFF: Nesbitt hospital course events: Cielo Bell is a 65 y/o F smoker w / hx COPD, CAD w/ WI s/p Stents in Dec 2014, with hx of rupture Acomm aneurysm s/p clipping in 2007. 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 She was seen i neurosurgery clinic for follow up in Dec 2014 shortly after her WI. At that clinic appt , she was noted to have a Right frontal screw protrusion. Due to her recent WI and bare metal stent placement, she was [...] the day and she called appropriately during [facility] too. 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 She was seen i neurosurgery clinic for follow up in Dec 2014 shortly after her WI. At that clinic appt , she was noted to have a Right frontal screw protrusion. Due to her recent WI and bare metal stent placement, she was [...] be safer with a bed alarm at rust COMFORT/ANXIETY/BEHAVIOR Patient Target: Patient will be free of pain. As evidenced by: Denying pain. Did not require pain medication. 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 Diego primary. [...] skilled PT. 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 She was seen i neurosurgery clinic for follow up in Dec 2014 shortly after her WI. At that clinic appt , she was noted to have a Right frontal screw protrusion. Due to her recent WI and bare metal stent placement, she was [...] of Care / Advance Care NSICU ASSIGNED #[id number] Date: 10/23/2015 Advanced Directives: The patient does not have an advance directive in the EMR. A POLST is not indicated in the EMR. Healthcare Agent(s): Surrogate decision maker has been identified and is : Venessa Gerard (Daughter) . The surrogate decision maker has been listed as the emergency contact within [facility]. Code Status: Current Code Status Date Active Code Status Order ID Comments User Context 10/23/2015 3:47 PM Full Code [id number] Antoinette Adkins MD,PhD Inpatient Code History: Code Status History Date Active Date Inactive Code Status Order ID Comments User Context 10/23/2015 6:46 AM 10/23/2015 3:47 PM Full Code [id number] Tommie Bliss Inpatient 06/07/2014 9:11 AM 06/08/2014 6:06 PM Full Code [id number] Angel Mazariegos MD Inpatient 06/07/2014 6:13 AM 06/07/2014 9:11 AM Full Code [id number] Beny Cruz MD Inpatient 05/13/2008 4:34 PM 05/14/2008 7:21 PM Full Code [id number] Alli Junior MD Inpatient 04/11/2008 5:27 PM 04/13/2008 11:04 PM Full Code [id number] Saskia Nguyen RN Inpatient 03/03/2008 1:17 PM 03/08/2008 10:09 PM Full Code [id number] oT Prieto MD Inpatient 03/03/2008 1:16 PM 03/03/2008 1:16 PM DNR/DNI [id number] To Prieto MD Inpatient 03/03/2008 12:06 AM 03/03/2008 1:16 PM Full Code [id number] Marlon Mcintyre MD Inpatient 10/30/2007 10:53 PM 11/02/2007 8:59 PM Full Code [id number] Antoinette Saenz RN Inpatient 10/18/2007 5:01 AM 10/30/2007 10:53 PM Full Code [id number] Norberto Bolaños Inpatient Narrative Summary of Conversation: [...] & Bj n Note - Haven Wilson [facility] - 10/23/2015 5:12 PM PDTAssociated Problem(s): HTN [...] 4:51 PM PDTAssociated Problem(s): Skull defect-[facility] s[facility]p R [facility] crani; Dr. Diego primary. [...] Skull defect Assessment & Plan -[facility] s/p R synthetic crani; Dr. Diego primary. 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/08/2008 Benign neoplasm of major salivary gland 06/06/2014 Goiter 06/06/2014 Coronary arteriosclerosis in northway artery 03/06/2015 Acute lob-SV-lcqnutocs myocardial infarction ([facility]) 12/28/2014 Resolved Ambulatory Problems Diagnosis Date Noted GERD (gastroesophageal reflux disease) 10/24/2007 Past Medical History Diagnosis Date Essential hypertension Tobacco dependence COPD CVA (cerebral vascular accident) ([facility]) 2007 Subarachnoid hemorrhage due to ruptured aneurysm ([facility]) 2007 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 Abnormal LFTs (liver function tests) MRSA (methicillin resistant staph aureus) culture positive Continuous tobacco abuse Past Surgical History Procedure Laterality Date Partial thyroidectomy Right Hysterectomy Cholecystecomy Bladder suspension 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 Skein Bleacher shunt Tympanoplasty Right 1987 Lumpectomy of left breast 1979 Coronary stent placement 12/28/2014 status post stent placement in the mid LAD Allergies Allergen Reactions Kent Tar Hives Betadine [Povidone-Iodine (With Soap)] Unknown [...] medication information: none given Functional Epidural: No GARAGE DOOR SERVICE TECHNICIAN: No Respiratory: RR: 18, O2 Sat: 94 [...] PACU Contact Name: Linda (daughter) Contact Number: [phone] Family contacted: Yes Comment: Update given to [...] medication information: none given Functional Epidural: No GARAGE DOOR SERVICE TECHNICIAN: No Respiratory: RR: 24, O2 Sat: 96 %, O2 Delivery: Oxymask Breath Sounds: WDL Except DARIEN: clear LLL: diminished RUL: clear RLL: diminished MELISSA No Comment: Cardiac: BP: 134/66 mmHg HR: 77 GI: Nausea/Vomiting Status: No Signs/Symptoms: Interventions: Assessment: Comments: : Last void: via gonis catheter in OR, catheter removed prior to PACU Contact Name: Linda (daughter) Contact Number: [phone] Family contacted: Yes Comment: Update given to [...] [facility] | [address] | [place], [place] | | | MISTY POINT OF CARE | [address] | [address] | | | TESTS | | | [...] HOSPITAL LABORATORY | [address] | [place] [address] | | | SERVICES, CORE | RAMSES [...] (H) | 60 - 99 mg/dL | [facility] - | | | GLUCOSE, [...] + + + | [facility]LE [facility] | [address] | [place], [place] | | | [facility] | [address] | [address] | | | TESTS | | | [...] [facility] | [address] | [place], [place] | | | RA[place]L J[place] OF [place] | [address] | [address] | | | TESTS | | | [...] [facility] | [address] | [place], [place] | | | MISTY, POINT OF CARE | [address] | [address] | | | TESTS | | | | + + + + + OPERATION RECORD (10/24/2015 8:27 AM PDT) + + | Transcriptions | + + | Magnolia Diego MD - 10/23/2015 4:36 PM PDT Date of Service: 10/23/2015 Attending | | Surgeon: Magnolia Diego MD Customer Service Officer(s): Antoinette Del Valle MD, PhD Raed B [...] that appointment she | | suffered an WI and was placed on aspirin and Plavix [...] was brought to the operating room on [facility]. She was | | sedated and intubated [...] 10/23/2015 15:01:44DT: 10/23/2015 16:36:58Job #: | | [id number], Dr. Magnolia Diego, was the primary surgeon and in the OR during the | | critical portions of this procedure. There was no complication.Magnolia Diego MDOH[facility] 7C | | [id number] [facility] [address]/caa5[place], [place] [id number] | |The new synthetic skull flap was [...] |KLK/MODL | | | | | | /[id number] | | | |I, Dr. Magnolia Diego, was the primary surgeon and in the OR during the critical portions of this procedure. There was no complication. | | | | | | | |Magnolia Diego MD | |[facility] N[facility] | |[address] [facility] [address] | |7c/ohs[address]ao | |[place] [address] | |[phone] | + + CAPILLARY BLOOD GLUCOSE (NO [...] [facility] | [address] | [place], [place] | | | [place] OF [place] | [address] | [address] | | | TESTS | | | [...] [facility] | [address] | [place] [address] | | | JOHNSON, RYAN | PARK [...] | + + + + + | [facility] | [address] | [place] [address] | | | SERVICES, CORE | RAMSES [...] | | | LABORATORY | | | CZECH | | | SERVICES, | | | [...] | + + + + + | [facility] | [address] | [place] [address] | | | SERVICES, CORE | RAMSES [...] + + | [facility] | [address] [facility] | [place], [place] | | | [facility] | [facility] | [address] | | | TESTS | | | [...] | | PACU, cooper Antoinette Adkins MD,PhD [id number] | | + + + RENAL FUNCTION [...] | | | LABORATORY | | | [facility] | | | SERVICES, | | | [...] | + + + + + | [facility] | [address] | [place] [address] | | | SERVICES, CORE | RAMSES [...] + + + + + | [facility] | [address] | [place] [address] | | | SERVICES, CORE | RAMSES [...] | + + + + + | [facility] | [address] | [place] [address] | | | SERVICES, RYAN | RAMSES [...] | | | LABORATORY | | | CZECH | | | SERVICES, | | | [...] | + + + + + | [facility] | [address] | [place] [address] | | | SERVICES, CORE | RAMSES [...] [facility] | [address] | [place], [place] | | | RAÚL JAY OF CARE | [address] | [address] | | | TESTS | | | [...] | + + + + + | [facility] | [address] | [place] [address] | | | SERVICES, CORE | RAMSES [...] | + + + + + | [facility] | [address] | [place] [address] | | | SERVICES, CORE | PARK [...] | + + + + + | [facility] | [address] | [place] [address] | | | SERVICES, CORE | RAMSES [...] | | | LABORATORY | | | CZECH | | | SERVICES, | | | [...] the MDRD equation recommended by the | [facility] | | National Kidney Disease Education Program. [...] | + + + + + | [facility] | [address] | [place] [address] | | | JOHNSON, RYAN | RAMSES [...]
--- OUTSIDE RECORDS SUMMARY | ~2019-10-16 | XMS | Encounter Summary ---
Demographics + + + | Address | [address] | | | [place] [address] | + + + | Home Phone | | + + + | Preferred Language | Unknown | + + + | Marital Status | | + + + | Restorationism Affiliation | Unknown | + + + | Race | White | + + + | Ethnic Group | Not or | + + + Author + + + | Author | [facility] | | | and [place] | + + + | Organization | [facility] | [...] Team Providers + +------+ + | Care Business Continuity Analyst Name | Role | Phone | [...] | +--------+ + + + + | 12/27/ | Hospital | [facility] | Chana Rangel, | Chronic obstructive | | 2015 - | Encounter | [facility] ICU [address] | [address] | pulmonary disease, | | | | [place], | [place], [place] | unspecified COPD | | 12/29/ | | [place] [address] | [address] | type (HCC) (Primary | | 2014 | | [phone] | | Dx); H/O cerebral | | | | | | aneurysm repair; | | | | | | NSTEMI (non-ST | | | | | | elevated myocardial | | | | | | infarction) ([facility]) | +--------+ + + + + Social [...] + + + | Blood Pressure | 114/8 | 12/29/2014 9:12 AM | | | | | PST | | + + + + + | Pulse | 80 | 12/29/2014 9:12 AM | | | | | PST | | + + + + + | Temperature | 36.2 C (97.2 F) | 12/29/2014 9:12 AM | | | | | PST | | + + + + + | Respiratory Rate | 18 | 12/29/2014 9:12 AM | | | [...] | Weight | 53.8 kg (118 lb 9.7 | 12/29/2014 4:00 AM | | | | oz) | PST | | + + + + + | Height | 149.9 cm (") | 12/27/2014 11:00 PM | | | [...] [place] She presented to the ER at [facility]. She awoke this AM at 7 and [...] and aspirin were started. She arrived here sil having chest pain. She was taken to the energy systems laboratory director. successful PCI of the LAD Bare metal [...] patch on as this could result in GA. She was able to tolerate nebulizer. She [...] and the first on is negative. Echo: [facility] ECHOCARDIOGRAM REPORT STUDY DATE: 12/28/2014 PATIENT NAME: Cielo Bell : 1950 PCP: Lance Pandya CLINICAL HISTORY/DIAGNOSIS: GA A transthoracic echocardiogram with M-mode, pulsed-wave and [...] Imaging: ECG: Selected Labs: Recent Labs Lab 12/29/1440712/28/14447 WBC 11.1* -- HGB 11.8 -- HCT 35.8 -- PLT 181 -- NA 141 134* K 3.7 3.9 BUN 16 15 CREA 0.81 0.77 GLU 97 117* CALCIUM 8.5 8.7 INR 1.01 -- Recent Labs Lab 12/29/1440712/28/14 0745 12/28/1444712/28/14 0007 TROPONINI 75.39* >100.00* -- 28.90* HDL [...] the affected wrist straigh t. Call the guitar maker hand who did your procedure as soon as possible. Other Concerns Call the guitar maker hand who did your procedure if you have: Any of these Signs of Infection: Redness Fever higher than 101.5 degrees F or 38.6 degrees C Change in the bruise or lump. Numbness in your arm or wrist. Severe pain that is not relieved by Tylenol. Follow-up Care Continue your prescribed medications unless instructed otherwise. Follow-up with your primary health care provider and guitar maker hand after your procedure, as instructed. If you have questions or concerns about your cardiac catheterization procedure, call the number below. AttachmentsThe following attachments cannot be sent through Care Everywhere.CANCER, PREVENT ING ([place])COPD, WHAT IS ([place])HEART ATTACK, SYMPTOMS OF A ([place])LIVING WELL AFTER A HEART ATTACK ([place])LUNG DISEASE, CHRONIC: CONTROLLING STRESS ([place])LUNG DISEASE, CH RONIC: STARTING AN EXERCISE PLAN ([place])LUNG DISEASE, CHRONIC: TIPS FOR QUITTING SMOKING ( [place])QUESTIONS FOR YOUR HEALTH CARE TEAM, HEART ATTACK ([place])SMOKE FREE,BENEFITS OF LIVING ([place])SMOKE,WHY DO YOU ([place])SMOKING CESSATION ([place])SMOKING WITHDRAWAL, COPING WITH ([place])SMOKING,GETTING SUPPORT FOR QUITTING ([place])SMOKING,HEALTH EFFEC TS OF ([place])SMOKING,PLANNING TO QUIT ([place])SMOKING,TIPS FOR QUITTING (CARDIOVASCUL AR) ([place])EXERCISING AFTER A HEART ATTACK ([place])documented in this encounter Medications at Time of [...] original. CARDIOLOGY PROGRESS NOTE on 12/29/2014 [facility] Pt. Name/Age/: Cielo Bell 64 y.o. 1950 Med. Record Number: [id number] Primary Care Physician: Lance Pandya Date of [...] 75 No results for input(s): PHART, PO2ART, GRB2FKE, B2AMUDHB, BEART in the last 168 hours. Recent Labs Lab 12/29/14 0408 12/28/14 0745 12/28/14 0007 TROPONINI 75.39* >100.00* 28.90* Recent Labs Lab 12/29/14407 INR 1.01 Micro results last 72hrs: Microbiology Results (72 hrs) Procedure Component Value Units Date/Time Culture, Respiratory, Lower, Smear [[id number]] Collected: 12/28/14 1236 Order Status: Completed Lab Status: Preliminary result Updated: 12/28/14 1447 Specimen Information: Respiratory / Sputum, expectorated Gram Stain Result 3+ White Blood Cells 1+ Epithelial cells 3+ Gram positive cocci 2+ Gram negative diplococci 1+ Gram negative rods Culture, MRSA [[id number]] Collected: 12/28/14 0808 Order Status: Completed Lab [...] oxyCODONE Electronically signed by: Chana Rangel MD [facility] 12/29/2014 8:06 [facility] Portions of this chart may have been created with Socialare voice recognition software. Occasi onal wrong-word or [...] RN - 12/28/2014 11:09 AM PSTDischarge cardiac energy systems laboratory director education performed . Patient given greenhouse laborer plavix folder. Patient and patient's family at [...] Nausea And Vomiting Codeine Nausea And Vomiting Surprise Tar Hives Povidone Iodine Hives Sulfa Antibiotics [...] in the radial right ECG: Evolving anterior GA LAB RESULTS: LIPID No results found for: [...] ECGs available Confirmed by CHANA RANGEL MD ([id number]) on 12/28/2014 6:53:08 AM Troponin I Result [...] in Anterior leads Serial changes of evolving GA Confirmed by CHANA RANGEL MD ([id number]) on 12/28/2014 6:55:04 AM Comprehensive Metabolic Panel [...] Lavender Top Tube Done ASSESSMENT: Acute anterior GA with delayed presentation H/O 2 cerebral aneurysms (coil and clip 2007) HTN Dyslipidemia PLAN: Discussed smoking cessation Discussed medical Rx Echo Electronically signed by: Chana Rangel MD [facility] 12/28/2014 Portions of this chart may have been created with Socialare voice recognition software. Occasi onal wrong-word or [...] for NSTEMI. She is referred by Dr [place] She presented to the ER at [facility]. She awoke this AM at 7 and [...] and 1 coiled. She also has a ACUPRESSURIST shunt that is not functioning and not [...] 25 mg 25 mg Oral BID Chana A Bell, MD nitroglycerin (NITROSTAT) SL tablet 0.4 mg 0.4 mg Sublingual Q5 Min PRN Chana ni MD ALLERGIES Allergies Allergen Reactions Ciprofloxacin Nausea And Vomiting Codeine Nausea And Vomiting Surprise Tar Hives Povidone Iodine Hives Sulfa Antibiotics [...] normal right radial Skin benign ECG: Anterior GA with Q waves LAB RESULTS: LIPID Not available CHEMISTRY Gluc 127 Creat 0.82 K 4.1 HEMATOLOGY No results found for: WBC 13.1, WBCEX, HGB 13.8 HGBEX, HCT, HCTEX, PLT, 233 I reviewed records from [facility] and [facility] ASSESSMENT: Anterior GA - ongoing pain H/O cerebral aneurysms H/O [...] patient. Electronically signed by: Chana Rangel MD [facility] 12/27/2014 Portions of this chart may have been created with Socialare voice recognition software. Occasi onal wrong-word or [...] Review . Outcome: Progressing Patient lives in [place], [place] and will be discharging home today. PCP is Dr. Pandya. Will follow up with energy systems laboratory director to make a appointment. No further needs. Electronically signed by: JUSTINA Guillory 12/29/2014 12:48 After speaking with MARCELL Garcia, she stats that patient needed a nebulizer at discharge. Ashkan glass faxed the Rx, face sheet to [facility] in [place]. She spoke with Vivek to set this up. Vivek states that they would have it delivered to patients home. Electronically signed by: JUSTINA Guillory 12/29/2014 15:46Electronically signed by JUSTINA Lechuga at 09/2014 3:46 PM PSTPlan of Care - Ronda Perla RN - 12/29/2014 9:06 AM PSTProblem: General [...] 12/29/2014 9:06 AM PSTPlan of Care - Neelam, Morenita eric RN - 12/29/2014 1:34 AM PSTProblem: General Plan of Care (Adult, Obstetrics) Goal: Individualization/Patient-Specific Goal (Adult, Obstetrics) Individualization: Patient s unique needs, preferences, requests, personal goals, or care interventions/approaches. Outcome: Progressing L1- Pt is S/P heart catheterization. Stents x2 placed LAD. No further chest pain or pressur e. VSS. lan of [place] - Marleny Jolley, HANDMADE TILE ARTIST - 12/28/2014 6:30 PM PSTFormatting of this note might be different from t chapincito original. Problem: General Plan of Care (Adult, [...] 3 12-14 4 15+ 5 lan of [facility] - Ronda Velasquez RN - 12/28/2014 9:46 AM PSTBlack tarry loose stool hemoccult positiveEl ectronically signed by Ronda Perla RN at 12/28/2014 9:47 AM PSTPlan of [facility] - Ronda Limon RN - 12/28/2014 9:15 AM PSTLarge emesis absent nausea - 250 ml undigested f oods/juices from breakfast - declined prn meds as no nausea followed emesisElectronically si gned by Ronda Perla, ALEKSANDAR at 12/28/2014 10:15 AM PSTPlan of [facility] - Meme Richter, RN - 12/28/2014 4:09 AM PSTProblem: General [...] on heparin for the ambulance ride from [place] until she went down for stent placement. S/P placement she received Plavix. lan of Care - Carlos Eduardo Maynard RRT - 12/28/2014 2:23 AM PSTFormatting of [...] consent form sig gem. Patient transported to energy systems laboratory director with RN and monitor without incident. Electronically [...] | | | | | | type ([facility]) H/O | | | | | | cerebral aneurysm | | | | | | repair NSTEMI | | | | | | (non-ST elevated | | | | | | myocardial | | | | | | infarction) ([facility]) | | + +------+--------+ + + [...] | | | | | | [employer] | | | | | [...] ST. | [address] | [place] | [phone] | | [facility] | | [address] | | | - LABORATORY | | [...] | | Time | | seconds | [facility] | | | | [...] + | [facility] | [address] | [place] | [phone] | | [facility] | | [address] | | | - LABORATORY | | [...] | MPV | 8.9 | fL | [facility] | | | [...] + | [facility] | [address] | [place] | [phone] | | [facility] | | [address] | | | - LABORATORY | | [...] | | | | mmol/L | [facility] | | | | | | MEDICAL | | | | | | CENTER - | | | | | | LABORATORY | | + + + + + + | K | 3.7 | 3.5 - 5.1 | [facility] | | | | | mmol/L | [facility] | | | | [...] 16 | 7 - 18 mg/dL | [facility] | | | | | | [facility] | | | | | | MEDICAL | | | | | | CENTER - | | | | | | LABORATORY | | + + + + + + | Creatinine | 0.81 | 0.60 - 1.30 | [facility] | [...] | mL/min/1.73m2 | [facility] | | | [place] | RATE,ESTIMATED | | MEDICAL | | | | mL/min/1.03e5Lnat than | | CENTER - | | [...] | ine Ratio | | | [facility] | [...] | + + + + + | [facility] | [address] | [place] | [phone] | | [facility] | | [address] | | | - LABORATORY | | [...] [address] | [place] | [phone] | | [facility] | | [address] | | | - LABORATORY | | | | + + + + + ECHO Complete (12/28/2014 11:00 AM PST) + + | Specimen | + + | | + + + + + | Narrative | Performed At | + + + | [facility] ECHOCARDIOGRAM REPORT | | | STUDY DATE: 12/28/2014 PATIENT NAME: Cielo Bell | | | : 1950 PCP: Lance Pandya | | | CLINICAL HISTORY/DIAGNOSIS: GA A transthoracic echocardiogram | | | with [...] Hugo Garcia MD | | | PhD [facility] 12/28/2014 11:57 Box Feeder: Karol | | | MARIANA Dawson | [...] | chromogenic agar method | | [facility] | | | [...] [address] | [place] | [phone] | | [facility] | | [address] | | | - LABORATORY | | [...] | | | | | | [employer] | | | | | [...] [address] | [place] | [phone] | | [facility] | | [address] | | | - LABORATORY | | [...] | | Lavender | | | [facility] | | | Top Tube | [...] + | [facility] | [address] | [place] | [phone] | | [facility] | | [address] | | | - LABORATORY | | | | + + + + + Lipid Panel (12/28/2014 4:48 AM PST) + + + + + + | Component | Value | Ref Range | Performed | Pathologist | | | | | At | Signature | + + + + + + | Triglycerid | 143 | 35 - 160 mg/dL | [facility] | | | es | | | [...] HDL | 28 - 83 mg/dL | [facility] | | | | Reference Range as [...] | | Ratio | | | [facility] | | | | | | MEDICAL | | | | | | CENTER - | | | | | | LABORATORY | | + + + + + + | LDL, | 130 | <=130 mg/dL | [facility] | | | Calculated | | | [facility] | | [...] [address] | [place] | [phone] | | [facility] | | [address] | | | - LABORATORY | | [...] 15 | 7 - 18 mg/dL | [facility] | | | | | | [facility] | | | | | | MEDICAL | | | | | | CENTER - | | | | | | LABORATORY | | + + + + + + | Creatinine | 0.77 | 0.60 - 1.30 | [place] | | | | | mg/dL | [facility] | | | | | | MEDICAL | | | | | | CENTER - | | | | | | LABORATORY | | + + + + + + | eGFR, | >60Comment: GLOMERULAR | >=60 | [place] | | | non- | FILTRATION | mL/min/1.73m2 | [facility] | | | [place] | RATE,ESTIMATED | | MEDICAL | | | | mL/min/1.20b3Wbur than | | CENTER - | | [...] Total | appended report. These | | [facility] | | | | results have been [...] | | Protein | | | [facility] | | [...] | an appended report. | | [facility] | | | | These results have [...] Phosphatase | appended report. These | | [facility] | | | | results have [...] | | bulin Ratio | | | [facility] | [...] [address] | [place] | [phone] | | [facility] | | [address] | | | - LABORATORY | | [...] (H) | 22 - 269 U/L | [facility] [...] + | [facility] | [address] | [place] | [phone] | | [facility] | | [address] | | | - LABORATORY | | [...] MD | | | | | | ([id number]) on 12/28/2014 | | | | | [...] Performed At | + + + | [facility] Percutaneous Coronary Intervention | | | Report PATIENT NAME: Cielo Bell DATE OF : | | | 1950 DATE OF PROCEDURE: | | | 12/28/2014 | | | PRIMARY | | | CARE PROVIDER: Lance Pandya INTELLIGENCE SENIOR SERGEANT: Chana Rangel, | | | , [facility] PRE-PROCEDURE DIAGNOSIS: NSTEMI with ongoing | | [...] | | using a micropuncture kit. A 5-[place] PAPA guide catheter was | | | [...] chart were created | | | with [employer] voice recognition software. Occasional wrong-word or | [...] | | Clotting | | second(s) | [facility] | | | Time, POC | [...] + | [facility] | [address] | [place] | [phone] | | [facility] | | [address] | | | - LABORATORY | | [...] | | Clotting | | second(s) | [facility] | | | Time, POC | | [...] [address] | [place] | [phone] | | [facility] | | [address] | | | - LABORATORY | | [...] [address] | [place] | [phone] | | [facility] | | [address] | | | - LABORATORY | | | | + + + + + Troponin I (12/28/2014 12:07 AM PST) + + + + + + | Component | Value | Ref Range | Performed | Pathologist | | | | | At | Signature | + + + + + + | Troponin I | 28.90 ()Comment: | <0.06 ng/mL | [facility] | [...] | | | | | | [employer] | | | | | [...] [address] | [place] | [phone] | | [facility] | | [address] | | | - LABORATORY | | [...] MD | | | | | | ([id number]) on 12/28/2014 | | | | | [...] of care unspecified | + + | Chronic obstructive pulmonary disease, unspecified COPD type ([facility]) | + + | H/O cerebral aneurysm repair Other postprocedural status | + + | Smoking addiction Tobacco use disorder | + + | PVD (peripheral vascular disease) (HCC) Peripheral vascular disease, unspecified | + + | GI bleed Hemorrhage of gastrointestinal tract, unspecified | + + documented in this encounter Administered Medications + +--------+ +-------+------+------+ | Medication Order | MAR | Action | Dose | Rate | Site | | | Action | Date | | | | + +--------+ +-------+------+------+ | albuterol-ipratropium (DUONEB) | Given | 12/29/19 | 3 mLs | | | | 2.5-0.5 mg/3 mL nebulizer | | 15 3:49 | | | | | solution 3 mL 3 mL, | | PM PST | | | | | Nebulization, RT 4X DAILY, First | | | | | | | dose (after last modification) on | | | | | | | 12/28/14 at 0800 | | | | | | + +--------+ +-------+------+------+ +-------+ +-------+---+---+ | Given | 12/29/19 | 3 mLs | | | | | 15 12:20 | | | | | | PM PST | | | | +-------+ +-------+---+---+ | Given | 12/29/19 | 3 mLs | | | | | 15 8:32 | | | | | | AM PST | | | | +-------+ +-------+---+---+ +---+---+ | | | +---+---+ + +-------+ +-------+---+---+ | aspirin chewable tablet 81 mg | Given | 12/30/19 | 81 mg | | | | 81 mg, Oral, DAILY, First dose on | | 15 8:13 | | | | | 12/29/14 at 0900, | | AM PST | | | | | Post-op/Phase II | | | | | | + +-------+ +-------+---+---+ +---+---+ | | | +---+---+ + +-------+ +-------+---+---+ | atorvaSTATin (LIPITOR) tablet | Given | 12/29/19 | 80 mg | | | | 80 mg 80 mg, Oral, NIGHTLY, | | 15 8:39 | | | | | First dose on 12/28/14 at | | PM PST | | | | | 0245, Post-op/Phase II | | | | | | + +-------+ +-------+---+---+ +-------+ +-------+---+---+ | Given | 12/29/19 | 80 mg | | | | | 15 2:39 | | | | | | AM PST | | | | +-------+ +-------+---+---+ +---+---+ | | | +---+---+ + +-------+ +-------+---+---+ | clopidogrel (PLAVIX) tablet 75 | Given | 12/30/19 | 75 mg | | | | mg 75 mg, Oral, DAILY, First | | 15 8:12 | | | | | dose on 12/28/14 at 0900, Do | | AM PST | | | | | not give if already taken today, | | | | | | | Post-op/Phase II | | | | | | + +-------+ +-------+---+---+ +-------+ +-------+---+---+ | Given | 12/29/19 | 75 mg | | | | | 15 8:30 | | | | | | AM PST | | | | +-------+ +-------+---+---+ +---+---+ | | | +---+---+ + +-------+ +--------+---+---+ | clopidogrel (PLAVIX) tablet | Given | 12/29/19 | 300 mg | | | | PRN, Starting 12/28/14 at 0143 | | 15 1:43 | | | | | | | AM PST | | | | + +-------+ +--------+---+---+ +---+---+ | | | +---+---+ + +-------+ +--------+---+---+ | doxycycline (VIBRAMYCIN) tablet | Given | 12/30/19 | 100 mg | | | | 100 mg 100 mg, Oral, 2 TIMES | | 15 9:21 | | | | | DAILY, First dose on 12/29/14 | | AM PST | | | | | at 0900, May take with food to | | | | | | | avoid GI upset. Administer with | | | | | | | at least 8 ounces of water and | | | | | | | have patient sit up for at least | | | | | | | 30 minutes., | | | | | | + +-------+ +--------+---+---+ +---+---+ | | | +---+---+ + +-------+ +-------+---+---+ | famotidine (PEPCID) tablet 20 | Given | 12/30/19 | 20 mg | | | | mg 20 mg, Oral, 2 TIMES DAILY, | | 15 8:13 | | | | | First dose on 12/28/14 at 0900 | | AM PST | | | | + +-------+ +-------+---+---+ +-------+ +-------+---+---+ | Given | 12/29/19 | 20 mg | | | | | 15 8:39 | | | | | | PM PST | | | | +-------+ +-------+---+---+ | Given | 12/29/19 | 20 mg | | | | | 15 8:44 | | | | | | AM PST | | | | +-------+ +-------+---+---+ +---+---+ | | | +---+---+ + +-------+ +--------+---+---+ | fentaNYL injection PRN, | Given | 12/29/19 | 25 mcg | | | | Starting 12/28/14 at 0044 | | 15 1:10 | | | | | | | AM PST | | | | + +-------+ +--------+---+---+ +-------+ +--------+---+---+ | Given | 12/29/19 | 50 mcg | | | | | 15 12:44 | | | | | | AM PST | | | | +-------+ +--------+---+---+ +---+---+ | | | +---+---+ + +-------+ +--------+---+---+ | heparin 1,000 units/mL | Given | 12/29/19 | 2,000 | | | | injection PRN, Starting Sat | | 15 12:55 | Units | | | | 12/28/14 at 0055 | | AM PST | | | | + +-------+ +--------+---+---+ +---+---+ | | | +---+---+ + +-------+ +---------+---+---+ | iohexol (OMNIPAQUE 350) 350 | Given | 12/29/19 | 115 mLs | | | | mg/mL injection Intravenous, | | 15 1:45 | | | | | PRN, Starting 12/28/14 at 0145 | | AM PST | | | | + +-------+ +---------+---+---+ +---+---+ | | | +---+---+ + +-------+ +--------+---+---+ | lisinopril (PRINIVIL,ZESTRIL) | Given | 12/30/19 | 2.5 mg | | | | tablet 2.5 mg 2.5 mg, Oral, | | 15 8:13 | | | | | DAILY, First dose on 12/28/14 | | AM PST | | | | | at 0900 | | | | | | + +-------+ +--------+---+---+ +-------+ +--------+---+---+ | Given | 12/29/19 | 2.5 mg | | | | | 15 8:40 | | | | | | AM PST | | | | +-------+ +--------+---+---+ +---+---+ | | | +---+---+ + +-------+ +-------+---+---+ | metoprolol tartrate (LOPRESSOR) | Given | 12/30/19 | 25 mg | | | | tablet 25 mg 25 mg, Oral, 2 | | 15 8:12 | | | | | TIMES DAILY, First dose on Sat | | AM PST | | | | | 12/28/14 at 0245, Hold for SBP<100 | | | | | | | or HR<50, Post-op/Phase II | | | | | | + +-------+ +-------+---+---+ +-------+ +-------+---+---+ | Given | 12/29/19 | 25 mg | | | | | 15 8:39 | | | | | | PM PST | | | | +-------+ +-------+---+---+ | Given | 12/29/19 | 25 mg | | | | | 15 8:30 | | | | | | AM PST | | | | +-------+ +-------+---+---+ +---+---+ | | | +---+---+ + +-------+ +--------+---+---+ | midazolam (VERSED) 1 mg/mL | Given | 12/29/19 | 0.5 mg | | | | injection PRN, Starting Sat | | 15 1:10 | | | | | 12/28/14 at 0044 | | AM PST | | | | + +-------+ +--------+---+---+ +-------+ +------+---+---+ | Given | 12/29/19 | 1 mg | | | | | 15 12:44 | | | | | | AM PST | | | | +-------+ +------+---+---+ +---+---+ | | | +---+---+ + +-------+ +---+---+---+ | niCARdipine (CARDENE) 200 mcg, | Given | 12/29/19 | | | | | nitroglycerin 100 mcg in heparin | | 15 12:47 | | | | | 3,000 Units CVL mixture PRN, | | AM PST | | | | | Starting 12/28/14 at 0047 | | | | | | + +-------+ +---+---+---+ +---+---+ | | | +---+---+ + +-------+ +---------+---+---+ | niCARdipine in dextrose | Given | 12/29/19 | 200 mcg | | | | (CARDENE) 0.2 mg/mL infusion | | 15 1:02 | | | | | PRN, Starting 12/28/14 at 0102 | | AM PST | | | | + +-------+ +---------+---+---+ +---+---+ | | | +---+---+ + +-------+ +---------+---+---+ | niCARdipine in dextrose | Given | 12/29/19 | 200 mcg | | | | (CARDENE) 0.2 mg/mL infusion | | 15 1:17 | | | | | PRN, Starting 12/28/14 at 0117 | | AM PST | | | | + +-------+ +---------+---+---+ +---+---+ | | | +---+---+ + +-------+ +---------+---+---+ | niCARdipine in dextrose | Given | 12/29/19 | 200 mcg | | | | (CARDENE) 0.2 mg/mL infusion | | 15 1:30 | | | | | PRN, Starting 12/28/14 at 0130 | | AM PST | | | | + +-------+ +---------+---+---+ +---+---+ | | | +---+---+ + +---------+ +---------+---+ + | nicotine (NICODERM) 21 mg/24 hr | Patch | 12/29/19 | 1 patch | | Deltoid- | | 1 patch 1 patch, Transdermal, | Applied | 15 8:29 | | | Right | | DAILY PRN, Nicotine Craving, | | AM PST | | | | | Starting 12/28/14 at 0218, | | | | | | | Apply to non-hairy, clean, dry | | | | | | | skin on upper body or arm. Rotate | | | | | | | sites. May remove at bedtime PRN | | | | | | | vivid dreams., Post-op/Phase II | | | | | | + +---------+ +---------+---+ + +---+---+ | | | +---+---+ + +---------+ +--------+-------+---+ | sodium chloride 0.9% (NS) bolus | New Bag | 12/29/19 | 321.5 | 80.4 | | | 321.5 mL 321.5 mL (rounded from | | 15 2:37 | mLs | mL/hr | | | 321.6 mL = 6 mL/kg | | AM PST | | | | | 53.6 kg), Intravenous, | | | | | | | Administer over 4 Hours, ONCE, | | | | | | | 12/28/14 at 0245, For 1 dose, | | | | | | | Post-op/Phase II | | | | | | + +---------+ +--------+-------+---+ +---+---+ | | | +---+---+ + +-------+ +---------+---+---+ | spironolactone (ALDACTONE) | Given | 12/30/19 | 12.5 mg | | | | tablet 12.5 mg 12.5 mg, Oral, | | 15 8:14 | | | | | DAILY, First dose on 12/28/14 | | AM PST | | | | | at 0900, Hazardous: Use | | | | | | | appropriate handling | | | | | | | precautions., | | | | | | + +-------+ +---------+---+---+ +-------+ +---------+---+---+ | Given | 12/29/19 | 12.5 mg | | | | | 15 8:42 | | | | | | AM PST | | | | +-------+ +---------+---+---+ +---+---+ | | | +---+---+ documented in this encounter
--- OUTSIDE RECORDS SUMMARY | ~2019-10-16 | XMS | Encounter Summary ---
Demographics + + + | Address | [address] | | | [place] [address] | + + + | Home Phone [...] Team Providers + +------+ + | Care Bolt Man Name | Role | Phone | + +------+ + PCP | Unavailable | + +------+ + Encounter Details +--------+ + + + + | Date | Type | Department | Care Team | Description | +--------+ + + + + | 11/12/ | Telephone | Neurosurgery at | Cari Martinez, | | | 2007 | [facility] | | | | | [facility] [address] | Neurosurgery [address] | | | | | [facility] | [address] | | | | | [facility], | [place], [place] | | | | | [facility] | [address] | | | | | Floor [place], [place] | | | | | | [address] | | | | | | [phone] | | | +--------+ + + + [...] (HCC) Subarachnoid hemorrhage | + + | Chronic pain Other chronic pain | + + | Otitis media Unspecified otitis media | + + | COPD Chronic airway obstruction, not elsewhere classified | + + | HTN Unspecified essential hypertension | + + documented in this encounter"
--- OUTSIDE RECORDS SUMMARY | ~2019-10-16 | XMS | Encounter Summary ---
Demographics + + + | Address | [address] | | | [place] [address] | + + + | Home Phone | | + + + | Preferred Language | Unknown | + + + | Marital Status | | + + + | Quaker Affiliation | Unknown | + + + [...] Team Providers + +------+ + | Care Hand Painter Name | Role | Phone | + +------+ + | Lance Pandya DO | PCP | | + +------+ + Reason for Visit Diagnostic/Screening (Routine) +--------+--------+ [...] | [address] | [address] | | | | | Procedures | [address] [place] | [place], | | | | | [place] Nuclear | [place], [place] | [place] | | | | | Stress Test | [address] | [address] | | | | | (Vasodilator | Phone: | Phone: | | | | | ) CHG | [phone] | [phone] | | | | | MYOCARDIAL | Fax: | Fax: | | | | | SPECT | [phone] | [phone] | | | | | MULTIPLE | | | | | | | STUDIES AR | | | | | | | CV STRS TST | | | | | | | XERS&/OR RX | | | | | | | CONT ECG W/O | | | | | | | I&R AR | | | | | | | [...] + + | 08/06/ | Hospital | [facility] | Chana Luu, | | | 2017 | Encounter | MED CTR NUCLEAR | MD [address] | | | | | MEDICINE [address] | [place], [place] | | | | | [address] [place], | [address] | | | | | [place] [address] | | | | | | [phone] | | | +--------+ + + + [...] | | + +--------+ + +------+------+ | technetium TC-99M sestamibi | Given | 08/07/19 | 30 | | | | (CARDIOLITE) injection 30 | | 17 11:35 | -millicu | | | | millicurie 30 -millicurie, | | AM PDT | summer | | | | Intravenous, ONCE PRN, Other, | | | | | | | Starting 08/06/16 at 1135, For | | | | | | | 1 dose, Nuclear Medicine | | | | | | + +--------+ + +------+------+ +---+---+ | | | +---+---+ documented in this encounter"
--- OUTSIDE RECORDS SUMMARY | ~2019-10-16 | XMS | Encounter Summary ---
Demographics + + + | Address | [address] | | | [place] [address] | + + + | Home Phone [...] Team Providers + +------+ + | Care Plastics Heat Welder Name | Role | Phone | [...] + + | 10/02/ | Office | Preoperative | Mable Lee, | Preoperative | | 2016 | Visit | Medicine Clinic at | MD | examination (Primary | | | | [facility] 4th Floor Day | | Dx); Acquired skull | | | | Stay [address] | | defect; SAH | | | | [address] | | (subarachnoid | | | | Mailcode: UHN65 | | hemorrhage) (HCC); | | | | [facility] | | Essential | | | | [address], [place] | | hypertension; | | | | [address] | | Chronic obstructive | | | | [phone] | | pulmonary disease, | | | | | | unspecified COPD | | | | | | type (HCC) | +--------+---------+ + + + Anesthesia Record + + + + + | Procedure Name | Responsible | Anesthesia Start | Anesthesia Stop Time | | | Anesthesiologist | Time | | + + + + + | RIGHT SYNTHETIC | Jassi Chavez, | 10/23/15 0736 | 10/23/15 1026 [...] + + + | Wound/ | 03/04/08; 2200; L neck abcess; | 03/04/08 2200 by | 12/09/16 1622 by | | [...] | frontal region; surgical wound; | Saskia Ngueyn RN | Discontinued After | | Wound [...] 18 g; | Hemanth Edward CRNA | Miranda Madrigal RN | | IV | None; No; Positive; 10/25/15; | | | | | 1220 | | | +--------+ + + + | Urethr | 10/23/15; 814; EFRAÍN Benavides; 16 | 10/23/15814 by | 10/23/15 1000 by | | al | Fr.; 10 mL; 10/23/15 (Dc'd in [place] | Tommy Bautista RN | Anika Pollack RN | | Cathet | prior to arrival to [facility]); 1000 | | | | er | | | | +--------+ + + + | Periph | 10/23/15; 829; Hemanth Edward CRNA; | 10/23/15829 by | 10/24/15929 by | [...] + + + | Blood Pressure | 121/70 | 10/03/2015 2:09 PM | | | | | PDT | | + + + + + | Pulse | 79 | 10/03/2015 2:09 PM | | | | | PDT | | + + + + + | Temperature | 36.5 C (97.7 F) | 10/03/2015 2:09 PM | | | | | PDT | | + + + + + | Respiratory Rate | 14 | 10/03/2015 2:09 PM | | | | | PDT | | + + + + + | Oxygen Saturation | 95% | 10/03/2015 2:09 PM | | | | | PDT | | + + + + + | Inhaled Oxygen | - | - | | | Concentration | | | | + + + + + | Weight | 51.7 kg (114 lb) | 10/03/2015 2:09 PM | | | | | PDT | | + + + + + | Height | 149.9 cm (4' 11") | 10/03/2015 2:09 PM | neck neck 35 c m | | | | PDT | | + + + + + | Body Mass Index | 23.03 | 10/03/2015 2:09 PM | | | | | PDT | | + + + + + documented in this encounter Patient Instructions Patient Instructions Mable Lee MD - 10/03/2015 2:56 PM PDT PREOPERATIVE INSTRUCTIONS Empty stomach before [...] of water on the morning of surgery: Metoprolol Interrupt Plavix on October 08. Restart after the surgery. Do not take any vitamin E or non-steroidal anti-inflammatory (NSAIDs i.e. Advil, Aleve, Ibuprofen) or herbal supplements 7 days prior to your surgery. These drugs may interfere wit h normal blood clotting and may cause excessive bleeding and bruising during or after the castillo rgery. If you need a pain medication for general purposes, use Tylenol as directed. OK to take it even on the morning of surgery, if needed. If you are in doubt about any medications that you are taking, please contact our office . General Skin Cleansing Instructions for Bathing or Showers with Hibiclens Disclaimers: ? Hibiclens is not to be used on the head or face, keep out of the eyes, ears and mouth. ? Hibiclens is not to be used in the genital area. ? Hibiclens should not be used if you are allergic to chlorhexidine gluconate or any other ingredients in this preparation. Bathe or shower the night before your surgery: ? If you plan to wash your hair, do so with your regular shampoo. Then rinse hair and body thoroughly to remove any shampoo residue. ? Wash your face with your regular soap or water only. ? Thoroughly rinse your body with warm water from neck down. ? Use Hibiclens as you would any other liquid soap. Please do not put the Hibiclens on a wa sh cloth, apply directly to the skin and wash gently. Apply the minimum amount of Hibiclens necessary to cover the skin. Leave the Hibiclens on your skin for 1 minute, then rinse off. ? Rinse thoroughly with warm water. ? Do not use your regular soap after applying and rinsing Hibiclens. Use Hibiclens for a second day in a row (morning of surgery, as soon as you wake up): ? Shower/bathe again using Hibiclens in the same method as described above. ? Do not apply any lotions, deodorants, powders or perfumes to the body areas that have been cleaned with Hibiclens. Other Important Guidelines ? Do not shave [...] or walk. Surgery check-in location: Admitting - [facility], ninth floor lobby Surgery Check in Time: [...] it is after office hours, call the [facility] chipper operator at [phone] and ask them to page him or h er. documented in this encounter Progress Notes Isamar Callahan MA - 10/06/2015 9:58 AM PDT Telephone contact made with patient. Relayed positive nasal culture result. Informed patien t of the need to fern picker Rx at her pharmacy, refer to education materials given at clinic vi sit, and start the checklist given at clinic visit on the day of this call OR 5 days prior t o the day of surgery. able Jerry MD - 10/03/2015 4:59 PM PDT Quick Note: 10/03/2015 Nasal culture screening during PMC visit is positive for MSSA. [facility] MA 1) Call the patient to inform of positive nasal culture and review instructions given duri ng the visit regarding the use of Bactroban 2) Instruct the patient to fern picker prescription for Bactroban at the pharmacy listed in EP IC. 3) Per [facility] protocol, activate order for Bactroban (Mupirocin 2% ointment; apply in each no stril twice daily for 5 days before surgery; 22gm; no refills) Order will be cosigned by adeline santos of this note. Mable Gonsalez MD - 10/03/2015 2:29 PM PDT PREOPERATIVE CONSULT NOTE Author: Mable Lee MD Referring Physician: Dr. Huber Primary Care Provider: Remington Leroy Md, MD [...] Allergies reviewed / updated Allergies Allergen Reactions [place] Tar Hives Betadine [Povidone-Iodine (With Soap)] Unknown Cipro [Ciprofloxacin] Nausea and Vomiting Codeine Hcl Nausea and Vomiting Sulfa (Sulfonamide Antibiotics) Erythema Past medical history reviewed / updated Past Medical History Diagnosis Date GERD (gastroesophageal reflux disease) Essential hypertension Tobacco dependence COPD on oxygen at night Otitis media recent abx preadmit Chronic pain CVA (cerebral vascular accident) ([facility]) 2007 Subarachnoid hemorrhage due to ruptured aneurysm ([facility]) 2007 Benign neoplasm of major salivary glands Goiter CAD in [place] artery s/p NSTEMI 12/27/2014; status post stent placement in the mid LAD Abnormal LFTs (liver function tests) MRSA (methicillin resistant staph aureus) culture positive post cariotomy for SAH Past surgery reviewed and updated Past Surgical History Procedure Date Partial thyroidectomy Hysterectomy Cholecystecomy Bladder suspension 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 Web User Experience Strategist shunt Tympanoplasty 1987 Lumpectomy of left breast 1978 Coronary [...] Alert and appropriate; nl affect. alert Findings: Blow Torch Burner nial nerves 2-12 intact, Motor 5/5 strength [...] [facility] PREOPERATIVE MEDICINE CLINIC AT [facility] 4TH FLOOR DAY STAY [address] [facility] [place] [address] I spent time counseling [...] instructions given. documented in this e ncounter Plan of Treatment + + +--------+ + + | Name | Type | Priori | Associated Diagnoses | Order Schedule | | | | ty | | | + + +--------+ + + | COMMUNICATION TO [facility] | Procedures | Routin | Preoperative | Ordered: 10/03/2015 | | LAB DRAW | | e | examination | | + + +--------+ + + documented as of this encounter Procedures + +--------+ + + + | Procedure Name | Priori | Date/Time | Associated Diagnosis | Comments | | | ty | | | | + +--------+ + + + | 12 LEAD ECG | Routin | 10/03/2015 | Preoperative | Results for this | | | e | 2:21 PM | examination | procedure are in the | | | | PDT | | results section. | + +--------+ + + + | STAPH SCREEN, MRSA | Routin | 10/03/2015 | Preoperative | Results for this | | BY PCR NASAL ONLY | e | 2:12 PM | examination | procedure are in the | | | | PDT | | results section. | + +--------+ + + + | HEMOGLOBIN A1C, | Routin | 10/03/2015 | Preoperative | Results for this | | BLOOD | e | 2:12 PM | examination | procedure are in the | | | | PDT | | results section. | + +--------+ + + + documented in this encounter Results 12 LEAD ECG (10/03/2015 2:21 PM PDT) + + + + + + | Component | Value | Ref Range | Performed | Pathologist | | | | | At | Signature | + + + + + + | VENTRICULAR | 81 | bpm | [facility] | | | RATE | | | OF | | | | | | CARDIOLOGY | | + + + + + + | ATRIAL RATE | 190 | ms | [facility] | | | | | | OF | | | | | | CARDIOLOGY | | + + + + + + | P-R | 176 | ms | [facility] | | | INTERVAL | | | OF | | | | | | CARDIOLOGY | | + + + + + + | P AXIS | 68 | deg | [facility] | | | | | | OF | | | | | | CARDIOLOGY | | + + + + + + | QRS | 80 | ms | [facility] | | | DURATION | | | OF | | | | | | CARDIOLOGY | | + + + + + + | QT | 388 | ms | [facility] | | | | | | OF | | | | | | CARDIOLOGY | | + + + + + + | QTC-BAZETT | 451 | ms | [facility] | | | | | | OF | | | | | | CARDIOLOGY | | + + + + + + | R AXIS | -62 | deg | [facility] | | | | | | OF | | | | | | CARDIOLOGY | | + + + + + + | T AXIS | 114 | deg | [facility] | | | | | | OF | | | | | | CARDIOLOGY | | + + + + + + | ECG | SINUS RHYTHM | | [facility] | | | IMPRESSION | | | OF | | | | | | CARDIOLOGY | | + + + + + + | ECG | ANTERIOR INFARCT, AGE | | [facility] | | | IMPRESSION | INDETERMINATE- ABNORMAL | | OF | | | | ECG - | | CARDIOLOGY | | + + + + + + | ECG | Electronically signed | | [facility] | | | IMPRESSION | by: MIRANDA JON | | OF | | | | 10-05-2015 22:08:33 | | CARDIOLOGY | | + + [...] DEPT OF | [address] | [place], [place] | | | CARDIOLOGY | [address] | [address] | | + + + + + HEMOGLOBIN A1C, BLOOD (10/03/2015 2:12 PM PDT) + + + + + + | Component | Value | Ref Range | Performed | Pathologist | | | | | At | Signature | + + + + + + | HEMOGLOBIN | 5.7 (H)Comment: Hbg A1c | <5.7 % | [facility] | | | A1C | Interpretive | | LABORATORY | | | | Information: | | SERVICES, | | | | <5.7% - Normal | | SPECIAL IMM | | | | 5.7-6.4% - Consistent | | + COAG | | | | with pre-diabetes | | | | | | >6.4% - Consistent with | | | | | | diabetes | | | | + + + [...] [facility] | [address] | [place] [address] | | | SERVICES, SPECIAL | [address] | | | | IMM + COAG | | | | + + + + + STAPH SCREEN, MRSA BY PCR, NASAL ONLY (10/03/2015 2:12 PM PDT) + + + + + + | Component | Value | Ref Range | Performed | Pathologist | | | | | At | Signature | + + + + + + | MRSA/MSSA | MSSA (methicillin | Not Detected | [facility] | | | | susceptible S. aureus) | | LABORATORY | | | | detected (A) | | SERVICES, | | | | | | CORE | | + + + + + + + + | Specimen | + + | Swab - Nasal | | (qualifier value) | + + + + + + + | Performing | Address | City/State/Zipcode | Phone Number | | Organization | | | | + + + + + | [facility] | [address] | [place] [address] | | | SERVICES, CORE | [address] | | | + + + + + documented in this encounter Visit Diagnoses + + | Diagnosis | + + | Preoperative examination - Primary Preoperative examination, unspecified | + + | Acquired skull defect Other specified acquired deformity of head | + + | SAH (subarachnoid hemorrhage) (HCC) Subarachnoid hemorrhage | + + | Essential hypertension | + + | Chronic obstructive pulmonary disease, unspecified COPD type (HCC) | + + documented in this encounter
--- OUTSIDE RECORDS SUMMARY | ~2019-10-16 | XMS | Encounter Summary ---
Demographics + + + | Address | [address] | | | [place] [address] | + + + | Home Phone [...] Team Providers + +------+ + | Care Micromatic Hone Operator Name | Role | Phone | [...] | | | Mailcode: [id number] | | ([facility]); Essential | | | | [facility] | | hypertension; | | | | [address], [place] | | Anemia, unspecified | | | | [address] | | type; Tobacco | | | | [phone] | | dependence | +--------+---------+ + + [...] or walk. Surgery check-in location: Admitting - [facility], ninth floor [facility] Surgery Check in Time: The Preoperative [...] it is after office hours, call the [facility] thiokol operator at [phone] and ask them to page him or [...] material. In November she was transferred to [facility] for right-si ded wound dehiscence and infection with epidural abscess due to Staph Aureus. She also unde rwent explantation of her DAY GUARD shunt. She had a CT scan today [...] for Women" by Blanco Solis (found on [place]). COPD -- pt has chronic cough and [...] Allergies reviewed / updated Allergies Allergen Reactions [place] Tar Hives Betadine [Povidone-Iodine (With Soap)] Rash Cipro [Ciprofloxacin] Nausea and Vomiting Codeine Hcl Nausea and Vomiting Sulfa (Sulfonamide Antibiotics) Erythema Past medical history reviewed / updated Past Medical History: Diagnosis Date Abnormal LFTs (liver function tests) CAD in [place] artery s/p NSTEMI 12/27/2014; status post stent placement in the mid LAD Chronic pain COPD on oxygen at night Essential hypertension GERD (gastroesophageal reflux disease) Goiter Hemorrhagic stroke ([facility]) 2007 aneurysm MRSA (methicillin resistant staph aureus) culture positive post cariotomy for SAH Otitis media recent abx preadmit Subarachnoid hemorrhage due to ruptured aneurysm ([facility]) 2007 Tobacco dependence Past surgery reviewed / updated Past Surgical History Procedure Laterality Date Partial thyroidectomy Right Hysterectomy Bladder suspension 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 Product Management Internship shunt Tympanoplasty Right 1987 Lumpectomy of left breast 1979 Coronary stent placement 12/28/2014 status post stent placement in the mid LAD Removal of vp lab shunt Cholecystectomy Family history reviewed / updated [...] for Women" by Blanco Solis (found on [place]). COPD -- pt has chronic cough and [...] to this patient's care. Mable Lee MD [facility] PREOPERATIVE MEDICINE CLINIC AT [facility] 4TH FLOOR DAY STAY [address] [facility] [place] [address] I spent time (50 minutes, [...]
--- OUTSIDE RECORDS SUMMARY | ~2019-10-16 | XMS | Encounter Summary ---
Demographics + + + | Address | [address] | | | [place] [address] | + + + | Home Phone [...] Team Providers + +------+ + | Care Soda Dry House Operator Name | Role | Phone | [...] | | 2007 | Only | [address] [facility] | [phone] | | | | | [address] | | | | | | [place], [place] | | | | | | [address] | | | +--------+ + + + [...] DEPT OF | [address] | [place], [place] | | | CARDIOLOGY | [address] | [address] | | + + + + + | [facility] OF | [address] | [place], [place] | | | CARDIOLOGY | [address] | [address] | | + + + + + documented in this encounter Visit Diagnoses Not on filedocumented in this encounter"
--- OUTSIDE RECORDS SUMMARY | ~2019-10-16 | XMS | Encounter Summary ---
Demographics + + + | Address | [address] | | | [place] [address] | + + + | Home Phone [...] Team Providers + +------+ + | Care Kidney Puller Name | Role | Phone | + [...] | | | Surgery Services at | [facility], | History of | | | | [facility] [address] | [place] [address] | cranioplasty | | | | [facility] | [phone] | | | | | Health and Healing, | | | | | | [address] | | | | | | [place], [place] | | | | | | [address] | | | | | | [phone] | | | +--------+---------+ + + + [...] again in 1 month. MD CHANDRIKA Hansen/NGUYEN /[id number] signed by Ata White MD at 08/15/2018 4:36 PM LUZWaAta michael MD - 08/15/2018 12:00 PM PDTDictation #1 [id number] signed by Ata White MD at 08/15/2018 [...]
--- OUTSIDE RECORDS SUMMARY | ~2019-10-16 | XMS | Encounter Summary ---
Demographics + + + | Address | [address] | | | [place] [address] | + + + | Home Phone | | + + + | Preferred Language | Unknown | + + + | Marital Status | | + + + | Sikh Affiliation | Unknown | + + + | Race | White | + + + | Ethnic Group | Not or | + + + Author + + + | Author | [facility] | | | and [place] | + + + | Organization | [facility] | | | [...] Providers + +------+ + | Care Senior Java Software Developer Name | Role | Phone | + +------+ + | Lance Pandya DO | PCP | | + +------+ + Reason for Visit +--------+--------+ + | Reason | Onset | Comments | | | Date | | +--------+--------+ + | Other | 08/09/ | plan of care | | | 2016 | | +--------+--------+ + Encounter Details +--------+ + + + + | Date | Type | Department | Care Team | Description | +--------+ + + + + | 08/09/ | Telephone | [facility] | Chana Luu, | Other (plan of care) | | 2016 | | CARDIOLOGY [address] | MD [address] | | | | | [place], | [place] | | | | | [place] [address] | [address] | | | | | [phone] | | | +--------+ + + + [...] this encounter Miscellaneous Notes Telephone Encounter - Felipa Chaves - 08/10/2016 9:21 AM PDTReferral created (see referra l #[id number] for updates). el ephone Encounter - Lucille Costa RN - 08/09/2016 2:21 PM PDTShhelena notified. I will as k PSR's to please start the referral and send records as needed. Diagnosis of CAD, ischemic cardiomyopathy, abnormal stress test. Should be referral to river driver at [facility] ...........................................Lucille Costa RN on 08/09/16 at 14:21El ectronically signed by Lucille Costa RN at 08/09/2016 2:22 PM PDTTelephone Encounter - Tom piotrLucille RN - 08/09/2016 2:19 PM PDTIncrease the Lipitor to 40 mg a day and [facility] Encounter - Lucille Costa RN - 08/09/2016 11:41 AM PDTSheryl picked up during leaving message. She states that she is already on the lipitor 20mg that she jus t started per Dr Luu, she would like to know if she should increase it to 40mg. [facility] is willing to [facility]. I will consult Dr Luu about the lipitor and then get the referral started ...........................................Lucille Costa RN on 08/09/16 at 11:44 elephone Encounter - Lucille Costa RN - 08/09/2016 11:41 AM PDTLeft message at home number for patient to return my call. ...........................................Lucille Costa RN on 08/09/16 a t 11:41 elephone Encounte r - Lucille Costa RN - 08/09/2016 9:31 AM PDT----- Message from MD mary Shannon at 08/08/2016 11:59 PDT ----- Please let her know the stress test is abnormal. It suggests that she may have blockage in more than one artery. We could do angiogram here, but, if she needs stents we would need t o send her to [facility]. Maybe she would prefer to have the angiogram done there? Switch Pravachol to Lipitor 40 mg a day. The lipid is not well controlled. Recheck lipid in 3 months. Bell Tdocumented in this encounter Plan of Treatment Not on filedocumented as of this encounter Visit Diagnoses Not on filedocumented in this encounter"
--- OUTSIDE RECORDS SUMMARY | ~2019-10-16 | XMS | Encounter Summary ---
Demographics + + + | Address | [address] | | | [place] [address] | + + + | Home Phone [...] Team Providers + +------+ + | Care Scenario Writer Name | Role | Phone | + +------+ + | Mary Vazquez PA-C | PCP | | + +------+ + Encounter Details +--------+ + + + + | Date | Type | Department | Care Team | Description | +--------+ + + + + | 12/29/ | Documentati | Infectious | Saskia Nicolas MD | | | 2018 | on | Diseases at [facility] | [address] | | | | | [address] | [address] | | | | | Loop Physician's | [place], [place] | | | | | [place], 3rd floor | [address] | | | | | [place], [place] | [phone] | | | | | [address] | | | | | | [phone] | | | +--------+ + + + [...]
--- OUTSIDE RECORDS SUMMARY | ~2019-10-16 | XMS | Encounter Summary ---
Demographics + + + | Address | [address] | | | [place] [address] | + + + | Home Phone | | + + + | Preferred Language | Unknown | + + + | Marital Status | | + + + | Yazidism Affiliation | MET | + + + | Race | White | + + + | Ethnic Group | Not or | + + + Author + + + | Author | [facility] | + + + | Organization | [facility] | + + + | Address [...] Team Providers + +------+ + | Care Service Line Layer Name | Role | Phone | + +------+ + | Mary Vazquez PA-C | PCP | | + +------+ + Encounter Details +--------+ + + + + | Date | Type | Department | Care Team | Description | +--------+ + + + + | 06/29/ | Telephone | Otolaryngology | Frankie Ortiz MD | | | 2019 | | Head and Neck | [address] [facility] | | | | | Surgery Services at | [facility] [address] | | | | | [facility] [address] | [place], [place] | | | | | [facility] for | [address] | | | | | Health and Healing, | [phone] | | | | | Building | | | | | | [place], [place] | | | | | | [address] | | | | | | [phone] | | | +--------+ + + + [...] this encounter Miscellaneous Notes Telephone Encounter - Frankie Ortiz MD - 08/19/2018 5:12 PM PDTPatient's caregiver sabillon saida in concerned about the appearance of the flap, stating it looks darker. No drainage, fever , any symptom. They sent me a photo, this does shows some duskiness and likely necrosis of t he skin graft. I sent the photo to Dr. Abel Pratt for an opinion and he felt that the un derlying muscle looked viable and did not feel this needed immediate treatment. I recommende d that they call on Tuesday to make an appt with Dr. White in the coming weeks. documented in this enc ounter Plan of Treatment Not on filedocumented as of this encounter Visit Diagnoses Not on filedocumented in this encounter"
--- OUTSIDE RECORDS SUMMARY | ~2019-10-16 | XMS | Encounter Summary ---
Demographics + + + | Address | [address] | | | [place] [address] | + + + | Home Phone | | + + + | Preferred Language | Unknown | + + + | Marital Status | | + + + | Adventism Affiliation | MET | + + + [...] Team Providers + +------+ + | Care Wheat Cleaner Name | Role | Phone | [...] | | | [facility] | [place], [place] | s/p cranial wound | | | | Health and Healing, | [address] | washout (dos: | | | | | [phone] | 12/05/17)) | | | | floor [place], [place] | | | | | | [address] | | | | | | [phone] | | | +--------+ + + + [...] limited to afte r hours/weekend resident call ([phone]), clinic phone & office hours ([phone]) and PCP or subspeciality of non-NSG related concerns. documented in this encounter Plan of Treatment Not on filedocumented as of this encounter Visit Diagnoses Not on filedocumented in this encounter"
--- OUTSIDE RECORDS SUMMARY | ~2019-10-16 | XMS | Encounter Summary ---
Demographics + + + | Address | [address] | | | [place] [address] | + + + | Home Phone | | + + + | Preferred Language | Unknown | + + + | Marital Status | | + + + | Mandaen Affiliation | Unknown | + + + | Race | White | + + + | Ethnic Group | Not or | + + + Author + + + | Author | [facility] | | | and [place] | + + + | Organization | [facility] | | | [...] Providers + +------+ + | Care Clinical Haematologist Name | Role | Phone | + +------+ + PCP | Unavailable | + +------+ + Encounter Details +--------+ + + + + | Date | Type | Department | Care Team | Description | +--------+ + + + + | 10/09/ | Hospital | [facility] | | | | 1998 | Encounter | MED CTR XRAY [address] | | | | | | [address] | | | | | | [place] [address] | | | | | | [phone] | | | +--------+ + + + [...]
--- OUTSIDE RECORDS SUMMARY | ~2019-10-16 | XMS | Encounter Summary ---
Demographics + + + | Address | [address] | | | [place] [address] | + + + | Home Phone | | + + + | Preferred Language | Unknown | + + + | Marital Status | | + + + | Yarsani Affiliation | Unknown | + + + [...] Team Providers + +------+ + | Care Family Assistant Name | Role | Phone | [...] + + | 10/24/ | Telephone | [facility] | Antoinette Carrizales, | Medication Refill | | 2019 | | CARDIOLOGY [place] | [facility] | | | | | [address] | | | | | | [place] | | | | | | [address] | | | | | | [phone] | | | +--------+ + + + [...]
--- OUTSIDE RECORDS SUMMARY | ~2019-10-16 | XMS | Encounter Summary ---
Demographics + + + | Address | [address] | | | [place] [address] | + + + | Home Phone | | + + + | Preferred Language | Unknown | + + + | Marital Status | | + + + | Mosque Affiliation | MET | + + + [...] Team Providers + +------+ + | Care Gum Rolling Machine Tender Name | Role | Phone | + +------+ + | Mary Vazquez PA-C | PCP | | + +------+ + Reason for Referral PROC - Outpatient Surgery (Routine) +--------+---------+ + + + + | Status | Reason | Specialty | Diagnoses / | Referred By | Referred To | | | | | Procedures | Contact | Contact | +--------+---------+ + + + + | Closed | Coded | Otolaryngolog | Diagnoses | Wax, Ata, | Wax, Ata, | | | | y | Skull | MD [address] | MD [address] | | | | | defect | [address] | | | | | Disruption | [address] | [address] | | | | | of external | [place], [place] | [place] | | | | | operation | [address] | [address] | | | | | (surgical) | Phone: | Phone: | | | | | wound, not | [phone] | [phone] | | | | | elsewhere | Fax: | Fax: | | | | | classified, | [phone] | [phone] | | | | | initial | | | | | | | encounter | | | | | | | Procedures | | | | | | | REQUEST TO | | | | | | | SURGERY | | | | | | | SPACE CONTROLLER | | | | | | | [place] SPLIT | | | | | | | GRFT,HEAD,FA | | | | | | | C,HAND,FEET | | | | | | | <100CM [place] | | | | | | | FULL THICK | | | | | | | GRFT | | | | | | | SCALP,ARM,LE | | | | | | | G <20SQC [place] | | | | | | | FULL THICK | | | | | | | GRFT | | | | | | | SCALP,ARM | | | | | | | ADD 20SQCM | | | | | | | W[place] WND PREP | | | | | | | CH/INF, | | | | | | | F/N/HF/G | | | | | | | Staged | | | | | | | procedure-mo | | | | | | | d 58 90 | | | | | | | global | | | +--------+---------+ + + + + Encounter Details +--------+---------+ + + + | Date | Type | Department | Care Team | Description | +--------+---------+ + + + | 10/04/ | Office | Otolaryngology | Ata White MD | Skull defect | | 2019 | Visit | Head and Neck | [address] | (Primary Dx) | | | | Surgery Services at | [facility], | | | | | [address] | [place] [address] | | | | | [facility] for | [phone] | | | | | Health and Healing, | | | | | | [place] [address] | | | | | | [place], [place] | | | | | | [address] | | | | | | [phone] | | | +--------+---------+ + + + [...] +---------+ + + | Blood Pressure | 130/64 | 10/04/2018 10:20 AM | | | | | PDT | | + +---------+ + + | Pulse | 81 | 10/04/2018 10:20 AM | | | | | PDT [...] +---------+ + + documented in this encounter Functional [...] as of this encounter Progress Notes Ata Whtie MD - 10/04/2018 6:04 PM PDTClinic Date:10/04/2018 I saw Cielo today. She has had a stormy postoperative course with some issues concerning her wound healing and how things have settled in. She most recently lost the middle portion of her free flap, had to have the mesh out and was reconstructed with a scalp rotation flap . We rotated the scalp over the anterior part. We took out all of the sutures. It is now healing quite well. Posteriorly, the Integra looks intact. It is granulating and there is some good tissue in the wound bed. I replaced the dressing in there. We took off the [facility] er, and I think that she will be fine with that. I discussed with her a full-thickness/spli t-thickness skin graft. We are going to go ahead and arrange to do that in a few weeks. I will see her again prior to that if she has any problems. Otherwise, I think she will east[place] nue to heal. Most of this visit was spent discussing her surgical options, her surgical outcome, what th e path is, and how we will manage things. I spent greater than 15 minutes with her. MD CHANDRIKA Hansen/NGUYEN /[id number] signed by Ata White MD at 10/05/2018 5:51 PM PDTWax Ata MD - 10/04/2018 10:30 AM PDTDictation #1 [id number] signed by Ata White MD at 10/04/2018 5:57 PM PDTdocumented in this en counter Plan of Treatment Not on filedocumented as of this encounter Visit Diagnoses + + | Diagnosis | + + | Skull defect - Primary Unspecified acquired deformity of head | + + documented in this encounter"
--- OUTSIDE RECORDS SUMMARY | ~2019-10-16 | XMS | Encounter Summary ---
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, | | | | | | skull defect | ,PhD [address] | | | | | | Procedures | [address] | | | | | | CT HEAD WO | [facility] | | | | | | CONTRAST | Rd | | | | | | | [place], [place] | | | | | | | [address] | | | | | | | Phone: | | | | | | | [phone] | | | | | | | Fax: | | | | | | | [phone] | | +--------+--------+ + + + + Encounter Details +--------+ + + + + | Date | Type | Department | Care Team | Description | +--------+ + + + + | 10/02/ | Hospital | Diagnostic Imaging | | | | 2015 | Encounter | Services at [facility] | | | | | | [address] | | | | | | [place] [facility] | | | | | | [address] | | | | | | [place], [place] | | | | | | [address] | | | | | | [phone] | | | +--------+ + + + [...] CT HEAD WO CONTRAST | Routin | 10/03/2015 | Acquired skull | Results for this | | | e | 4:00 PM | defect | procedure are in the | | | | PDT | | results section. | + +--------+ + + + documented in this encounter Results CT HEAD WO CONTRAST [...] | | | | | | approach CLINICAL SUPPORT TECH shunt | | | | | | [...] frontalapproach | | | | | | CLINICAL SUPPORT TECH shunt catheter with | | | | [...]
--- OUTSIDE RECORDS SUMMARY | ~2019-10-16 | XMS | Encounter Summary ---
Demographics + + + | Address | [address] | | | [place] [address] | + + + | Home Phone | | + + + | Preferred Language | Unknown | + + + | Marital Status | | + + + | Gnosticist Affiliation | Unknown | + + + [...] Team Providers + +------+ + | Care Tourist Agent Name | Role | Phone | + +------+ + | Lacne Pandya DO | PCP | | + +------+ + Reason for Visit + + + | Reason | Comments | + + + | Medication Refill | | + + + Encounter Details +--------+--------+ + + + | Date | Type | Department | Care Team | Description | +--------+--------+ + + + | 03/09/ | Refill | [facility] | Chana Luu, | Medication Refill | | 2017 | | CARDIOLOGY [address] | MD [address] | | | | | [place], | [place] | | | | | [place] [address] | [address] | | | | | [phone] | | | +--------+--------+ + + + [...]
--- OUTSIDE RECORDS SUMMARY | ~2019-10-16 | XMS | Encounter Summary ---
Demographics + + + | Address | [address] | | | [place] [address] | + + + | Home Phone | | + + + | Preferred Language | Unknown | + + + | Marital Status | | + + + | Jain Affiliation | MET | + + + [...] Team Providers + +------+ + | Care Design Printer Balloon Name | Role | Phone | + [...] | | | | Hospital Admitting | [place], [place] | | | | | Desk Located on the | [address] | | | | | 9th floor | [phone] | | | | | [facility] [place] | | | | | | [address] | Hemanth Edward CRNA | | | | | | [address] | | | | | | [place], | | | | | | [place] [address] | | | | | | [phone] | | | | | | | [...] | Cathet | [facility]); 1000 | | | | er | | | | +--------+ + + + | Periph | 10/23/15; 829; Hemanth Edward DINING SERVICE INSPECTOR; | 10/23/15829 by | 10/24/15929 by | [...] Notes Anesthesia Postprocedure Evaluation - Hemanth Edward, DINING SERVICE INSPECTOR - 10/23/2015 10:48 AM PDTFormatti jesus of this note might be different from the original. 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 Director Of Convention Services shunt Tympanoplasty Right 1987 Lumpectomy of left [...] Date RATE 81 10/03/2015 ATRIALRATE 190 10/03/2015 SD 176 10/03/2015 QRS 80 10/03/2015 QT 388 10/03/2015 QTC 462 04/12/2008 PAXIS 68 10/03/2015 RAXIS -62 10/03/2015 TAXIS 114 10/03/2015 EKGDX 04/12/2008 Normal sinus rhythm Normal ECG "I have personally interpreted this report, either alone or with a trainee." Confirmed by KAREN ROMERO ([id number]) on 12-Apr-2008 15:40:13 Preoperative Adult Anesthesia Plan Last edited 10/03/15 6793 by Mable Lee MD ROS Pertinent HPI: [...] - normal Turgor: turgor normal Implants: None, 9533 Anesthesia Plan Comments ASA ASA 3 NPO [...]
--- OUTSIDE RECORDS SUMMARY | ~2019-10-16 | XMS | Encounter Summary ---
Demographics + + + | Address | [address] | | | [place] [address] | + + + | Home Phone [...] Team Providers + +------+ + | Care Operations Staff Specialist Security Name | Role | Phone | + [...] | | | head | Rd | [place], [place] | | | | | Infection | [place] | [address] | | | | | and | [address] | Phone: | | | | | inflammatory | Phone: | [phone] | | | | | reaction | [phone] | Fax: | | | | | due to other | Fax: | [phone] | | | | | internal | [phone] | | | | | | prosthetic [...] | | | | | | | [facility] REPLACE | | | | | | | SKULL | | | | | | | PLATE/FLAP | | | | | | | VA REPAIR | | | | | | | SKULL | | | | | | | DEFECT,UP TO | | | | | | | 5CM [facility] | | | | | | [...] Healing, | | | | | | [facility] | | | | | | floor [place], [place] | | | | | | [address] | | | | | | [phone] | | | +--------+---------+ + + + [...] the original. NEUROSURGERY FOLLOW UP CLINIC VISIT [facility] Attending: Paramjit Huber [...]
--- OUTSIDE RECORDS SUMMARY | ~2019-10-16 | XMS | Encounter Summary ---
Demographics + + + | Address | [address] | | | [place] [address] | + + + | Home Phone [...] Team Providers + +------+ + | Care Factory Supervisor Name | Role | Phone | + +------+ + | Remington Camacho MD | PCP | | + +------+ + Reason for Visit + +--------+ + | Reason | Onset | Comments | | | Date | | + +--------+ + | Pre-Op Question | 10/15/ | | | | 2015 | | + +--------+ + Encounter Details +--------+ + + + + | Date | Type | Department | Care Team | Description | +--------+ + + + + | 10/15/ | Telephone | Neurosurgery at | Paramjit Huber MD | Pre-Op Question | | 2016 | | [facility] [address] | [address] | | | | | [address] for | [place], [place] | | | | | Health and Healing, | [address] | | | | | [place] [address] [facility] | [phone] | | | | | floor [place], [place] | | | | | | [address] | | | | | | [phone] | | | +--------+ + + + [...] this encounter Miscellaneous Notes Telephone Encounter - Gladys Yoon LPN - 10/16/2015 3:02 PM PDTNo further action req uired. Reviewed instructions for hibiclense use with patient, she expressed appreciation for call. Closing encounter. documented in this encounter Plan of Treatment Not on filedocumented as of this encounter Visit Diagnoses Not on filedocumented in this encounter"
--- OUTSIDE RECORDS SUMMARY | ~2019-10-16 | XMS | Encounter Summary ---
Demographics + + + | Address | [address] | | | [place] [address] | + + + | Home Phone | | + + + | Preferred Language | Unknown | + + + | Marital Status | | + + + | Jew Affiliation | MET | + + + | Race | White | + + + | Ethnic Group | Not or | + + + Author + + + | Author | [facility] | + + + | Organization | [facility] | + + + | Address [...] Team Providers + +------+ + | Care Bar Captain Name | Role | Phone | + [...] SCALP, SCALP | | | | Rd [facility] | [address] [place], | [place] | | | | Hospital Admitting | [place] [address] | | | | | Desk Located on the | [phone] | | | | | 9th floor | | | | | | [place], [place] | | | | | | [address] | | | +--------+---------+ + + + [...] by ENT Brief Hospital Course: Preadmitted to [facility] ED on 09/13 for scalp wound deshicence. [...] prescribed 10/04/2018 10:30 AM MD NITESH Hansen [facility] Otolaryngolo HOW TO REACH US: Tuesday- Tuesday from 8:00am to 4:30pm, call the Otolaryngology clinic at [phone]. After hours, weekends, and holidays, call the [facility] hospital canal boat operator at [phone] and as k to have the ENT doctor on-call paged Contact information for after-discharge skilled nursing Care [facility] . Service: Home Health Services Contact information [address], [address] [address] Future Appointments Date Time Provider Department Center 10/04/2018 10:30 AM MD NITESH Hansen [facility] Otolaryngolo Pertinent imaging:In EPIC Pertinent labs: CBC [...] Pertinent microbiology/pathology: CULTURE, BLOOD BACTI & YEAST [facility] [[id number]] [facility] Collected: 09/20/18 0647 Lab Status: Preliminary result Specimen: Blood Updated: 09/22/18 0055 CULTURE RESULT No growth to date. [facility] CULTURE, AFB (ALL SPEC TYPES EXCEPT BLOOD) [[id number]] LAB Collected: 09/19/18 1428 Lab Status: Preliminary result Specimen: Tissue from Head Updated: 09/20/18 0441 Narrative: AFB Smear: AFB not detected CULTURE, TISSUE [[id number]] (Abnormal) [facility] LAB Collected: 09/19/18 1428 Lab [...] CULTURE, FUNGAL EXCEPT BLOOD, SKIN, HAIR, NAIL [[id number]] LAB Collected: 09/19/18 1428 Lab Status: In process Specimen: Tissue from Head Updated: 09/19/18 1453 CULTURE, AFB (ALL SPEC TYPES EXCEPT BLOOD) [[id number]] LAB Collected: 09/19/18 141 Lab Status: Preliminary result Specimen: Swab from Head Updated: 09/20/18 0441 Narrative: AFB Smear: AFB not detected CULTURE, WOUND DEEP W/ ANAEROBE [[id number]] (Abnormal) LAB Collected: 09/19/18 1412 Lab Status: [...] CULTURE, FUNGAL EXCEPT BLOOD, SKIN, HAIR, NAIL [[id number]] LAB Collected: 09/19/18 1412 Lab Status: In process Specimen: Swab from Head Updated: 09/19/18 1454 CULTURE, BLOOD BACTI & YEAST [facility] [[id number]] [facility] Collected: 09/19/18 0604 Lab Status: Preliminary result Specimen: Blood from Antecubital - right Updated: 09/21/18 0 055 CULTURE RESULT No growth to date. [facility] CULTURE, BLOOD BACTI & YEAST [facility] [[id number]] [facility] Collected: 09/18/18 0535 Lab Status: Preliminary result Specimen: Blood from Hand - left Updated: 09/20/18 0055 CULTURE RESULT No growth to date. [facility] CULTURE, BLOOD BACTI & YEAST [facility] [[id number]] [facility] Collected: 09/17/18 09 Lab Status: Preliminary result Specimen: Blood from Hand - left Updated: 09/19/18 0055 CULTURE RESULT No growth to date. [facility] CULTURE, BLOOD BACTI & YEAST [facility] [[id number]] (Abnormal) [facility] Collected: 09/14/18 002 Lab Status: Edited Result - FINAL Specimen: Blood from Peripheral Updated: 09/15/18 0502 CULTURE RESULT [facility] Staphylococcus epidermidisPanic Ref Range: GRAM STAIN Gram Positive BacilliPanic [facility] Gram positive cocci in clustersPanic Ref Range: Comment: This is an appended report. These results have been appended to a previously yovanny l verified report. Narrative: Growth in Aerobic Bottle - GPB only. Growth in Anaerobic Bottle - GPC and GPB. Organism Identified by Molecular ID, to be confirmed by culture. BLOOD CULTURE WORKUP [[id number]] (Abnormal) LAB Collected: 09/14/1824 Lab Status: Final [...] and Neck Surgery Mail Code PV01 [address] [place] [address] Pager [phone] Consult/Night/Weekend Pager: [phone] documented in this encounter Discharge Instructions Instructions [...] RLB Gram Stain...........: Gram smear performed at [facility]. Culture: Final Report: No growth after 3 [...] Please contact the neurosurgery cooper on-call pager [phone] with questions. Saskia Conway MD Neurosurgery PGY1 Pager: [phone] Saskia Tinoco MD - 0 09/21/2018 11:32 AM PDT NEUROSURGERY PROGRESS NOTE Attending Physician: Ata White MD (ENT); Paramjit Huber MD (NSGY) INTERVAL EVENTS: Planning to be discharged tomorrow and stay with her brother in [place] OBJECTIVE: Last 24 hour min/max Temp: 36.7 [...] RLB Gram Stain...........: Gram smear performed at [facility]. Culture: Final Report: No growth after 3 [...] Please contact the neurosurgery cooper on-call pager [phone] with questions. Saskia Conway MD Neurosurgery PGY1 Pager: [phone] Angie Piña PA-C - 09/21/2018 8:23 AM PDT DOS: 09/21/2018 Head and Neck Surgery Inpatient Daily Progress Note: Primary Care Provider: Mary Vazquez PA-C Admission Date: 09/13/2018 GLORIA MARSHA CANTUARD, [id number] Hospital Day #8 SUBJECTIVE INTERVAL EVENTS: - [...] and Neck Surgery Mail Code PV01 [address] [place], [place] [id number] Pager [phone] Consult/Night/Weekend Pager: [phone] Saskia Tinoco MD - 09/20/2018 7:54 AM [...] RLB Gram Stain...........: Gram smear performed at [facility]. Culture: Final Report: No growth after 3 [...] Please contact the neurosurgery cooper on-call pager [phone] with questions. Saskia Conway MD Neurosurgery PGY1 Pager: [phone] Angie Piña PA-C - 09/20/2018 6:58 AM PDT DOS: 09/20/2018 Head and Neck Surgery Inpatient Daily Progress Note: Primary Care Provider: Mary Vazquez PA-C Admission Date: 09/13/2018 GLORIA ADHIKARI, [id number] Hospital Day #7 SUBJECTIVE INTERVAL EVENTS: - [...] and Neck Surgery Mail Code PV01 [address] [place] [address] Pager [phone] Consult/Night/Weekend Pager: [phone] Hernandez Mistry MD - 09/19/2018 5:58 PM PDTNeurosurgery Post-Op Check 09/19/2018 5:58 PM Examined in 10k Procedure performed: wound revision, mesh explant Awake, alert, oriented to person, place, time Appropriately interactive PERRL, EOMI, FS, TML BUE/BLE 06/25 No drift SILT Incision c/d/i. LAZARA bloody. Please page [phone] with any questions Hernandez Wells M.D. Neurosurgery PGY-2 Angie Piña PA-C - 09/19/2018 8:07 AM PDT DOS: 09/19/2018 Head and Neck Surgery Inpatient Daily Progress Note: Primary Care Provider: Mary Vazquez PA-C Admission Date: 09/13/2018 GLORIA ADHIKARI, [id number] Hospital Day #6 SUBJECTIVE INTERVAL EVENTS: - [...] and Neck Surgery Mail Code PV01 [address] [place] [address] Pager [phone] Consult/Night/Weekend Pager: [phone] Nettie Knowles PA - 09/19/2018 7:21 AM [...] RLB Gram Stain...........: Gram smear performed at [facility]. Culture: Final Report: No growth after 3 days. Final Report 04/29/2008 Corrected CSF Culture Source...............: Cerebrospinal Fluid RLB Gram Stain...........: Gram smear performed at [facility]. Culture: Rare Methicillin resistant Staphylococcus aureus Final ID MRSA Cefazolin R Clindamycin S Erythromycin R Oxacillin R Penicillin R Tetracycline S Trimeth/Sulfa S Vancomycin S Final Report Comment: Test performed at [facility]. 03/07/2008 Corrected CSF Culture Source...............: Cerebrospinal Fluid RLB Gram Stain...........: Gram smear performed at [facility]. Culture: Final Report: No growth after 3 days. Final Report Comment: Test performed at [facility]. 03/03/2008 Corrected CSF Culture Source...............: Cerebrospinal Fluid RLB Gram Stain...........: Gram smear performed at [facility]. Culture: Final Report: No growth after 3 days. Final Report Comment: Test performed at [facility]. 03/03/2008 Corrected Wound Culture Source...............: Skin Abscess RLB Gram Stain...........: Rare Squamous epithelial cells Rare PMN's Rare Gram positive cocci Culture: 1+ Methicillin resistant Staphylococcus aureus Final ID MRSA Cefazolin R Clindamycin S Erythromycin R Oxacillin R Penicillin R Tetracycline S Trimeth/Sulfa S Vancomycin S Final Report Resulted: 03/05/08 RLB ([facility]) [facility] [address] [place] [address] Comment: [place] [facility] CULTURE RESULT Date Value Ref Range Status [...] free tissue flap (08/03/18)no w presenting to [facility] for non-viable flap and concern for underlying [...] wound cultures. Cares per ENT. ANSON MULLINS [facility] [address] [address] [phone] ettie Jaramillo PA - 09/18/2018 11:09 AM [...] RLB Gram Stain...........: Gram smear performed at [facility]. Culture: Final Report: No growth after 3 days. Final Report 04/29/2008 Corrected CSF Culture Source...............: Cerebrospinal Fluid RLB Gram Stain...........: Gram smear performed at [facility]. Culture: Rare Methicillin resistant Staphylococcus aureus Final ID MRSA Cefazolin R Clindamycin S Erythromycin R Oxacillin R Penicillin R Tetracycline S Trimeth/Sulfa S Vancomycin S Final Report Comment: Test performed at [facility]. 03/07/2008 Corrected CSF Culture Source...............: Cerebrospinal Fluid RLB Gram Stain...........: Gram smear performed at [facility]. Culture: Final Report: No growth after 3 days. Final Report Comment: Test performed at [facility]. 03/03/2008 Corrected CSF Culture Source...............: Cerebrospinal Fluid RLB Gram Stain...........: Gram smear performed at [facility]. Culture: Final Report: No growth after 3 days. Final Report Comment: Test performed at [facility]. 03/03/2008 Corrected Wound Culture Source...............: Skin Abscess RLB Gram Stain...........: Rare Squamous epithelial cells Rare PMN's Rare Gram positive cocci Culture: 1+ Methicillin resistant Staphylococcus aureus Final ID MRSA Cefazolin R Clindamycin S Erythromycin R Oxacillin R Penicillin R Tetracycline S Trimeth/Sulfa S Vancomycin S Final Report Resulted: 03/05/08 RLB ([facility]) [facility] [address] [place] [address] Comment: [place] [facility] [place] CULTURE RESULT Date Value Ref Range Status [...] 500 mg, 500 mg, intravenous, Q12H ASSESSMENT: Golria Adhikari is a 68 y.o. female with [...] tissue flap (08/03/18) now pres enting to [facility] for non-viable flap and concern for underlying infection/involvement of mesh cranioplasty.Plan for combined surgery (ENT+ NSG) tomorrow. PLAN: OR tomorrow for wound washout, explant of cranioplasty, flap per ENT. NPO after MN. Type and Screen; INR; CBC; BMP. ABX (Zosyn + Vanc) per primary service. Hold prophylactic lovenox. Pre op note forthcoming. ANSON MULLINS [facility] [address] [address] [address] Saskia Tinoco MD - 09/18/2018 10:58 AM [...] Saskia Conway MD Neurological Surgery R1 Pager: [phone] Angie Piña PA-C - 09/18/2018 8:02 AM PDT DOS: 09/18/2018 Head and Neck Surgery Inpatient Daily Progress Note: Primary Care Provider: Mary Vazquez PA-C Admission Date: 09/13/2018 GLORIA ADHIKAIR, [id number] Hospital Day #5 SUBJECTIVE INTERVAL EVENTS: - [...] and Neck Surgery Mail Code PV01 [address] [place] [address] Pager [phone] Consult/Night/Weekend Pager: [phone] Carlos Eduardo Alfonso MD - 0 09/17/2018 10:17 AM PDT DOS: 09/17/2018 Head and Neck Surgery Inpatient Daily Progress Note: Primary Care Provider: Mary Vazquez PA-C Admission Date: 09/13/2018 GLORIA ADHIKARI, [id number] Hospital Day #4 SUBJECTIVE INTERVAL EVENTS: - [...] - Head and Neck Surgery, PGY1 Pager [phone] Overnight/weekend consults pager [phone] I saw and evaluated the patient. I agree with the findings and the plan of care as low benitez in the resident/provider note. Carlos Eduardo Maher MD Vibrating Screed Operator Head and Neck Surgical Oncology Microvascular Reconstructive [...] Please contact the neurosurgery cooper on-call pager [phone] with questions. Alvin Mcclure MD Neurosurgery PGY1 Pager [phone] i, Carlos Eduardo Donald MD - 09/16/2018 8:36 AM PDT DOS: 09/16/2018 Head and Neck Surgery Inpatient Daily Progress Note: Primary Care Provider: Mary Vazquez PA-C Admission Date: 09/13/2018 GLORIA MARSHA ONOFRE, [id number] Hospital Day #3 SUBJECTIVE INTERVAL EVENTS: - [...] Labs 09/13/18204209/15/18 0657 GLU 97 91 ASSESSMENT/PLAN: Gloira Adhikari is a 68F with history of [...] the resident/provider note. Carlos Eduardo Maher MD Vibrating Screed Operator Head and Neck Surgical Oncology Microvascular Reconstructive [...] Please contact the neurosurgery cooper on-call pager [phone] with questions. Brenda Barillas MD Neurosurgery PGY-1 Pager: [phone] Associated attestation - Alfreda Mccollum MD - 09/16/2018 10:52 AM PDTI agree with the re sident note above. Any changes if any are noted below. Alfreda Mccollum MD Skull Base Fellow Department of Neurological Surgery [facility] [place] Angie French PA-C - 09/15/2018 8:35 AM PDT DOS: 09/15/2018 Head and Neck Surgery Inpatient Daily Progress Note: Primary Care Provider: Mary Vazquez PA-C Admission Date: 09/13/2018 GLORIA ADHIKARI, [id number] Hospital Day #2 SUBJECTIVE INTERVAL EVENTS: No [...] FRENCH PA-C Otolaryngology-Head and Neck Surgery [facility] [place] Pager [phone] Shelly Jenkins RT - 09/14/2018 2:59 PM [...] nning. Past Histories Allergies: Allergies Allergen Reactions [place] Tar Hives Betadine [Povidone-Iodine (With Soap)] Rash Cipro [Ciprofloxacin] Nausea and Vomiting Codeine Hcl Nausea and Vomiting Sulfa (Sulfonamide Antibiotics) Erythema Past Surgical History Procedure Laterality Date Partial thyroidectomy Right Hysterectomy Bladder suspension 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 Shoe Stitcher shunt Tympanoplasty Right 1987 Lumpectomy of left breast 1979 Coronary stent placement 12/28/2014 status post stent placement in the mid LAD Removal of evp global multimedia sales shunt Cholecystectomy Past Medical History: Diagnosis Date Abnormal LFTs (liver function tests) CAD in [place] artery s/p NSTEMI 12/27/2014; status post stent [...] for input(s): FIO2, PH, PCO2, PO2, HCO3, [id number], [id number], M1TSGJONN in the l ast 720 hours. CSF [...] RLB Gram Stain...........: Gram smear performed at [facility]. Culture: Final Report: No growth after 3 days. Final Report 04/29/2008 CSF Culture Source...............: Cerebrospinal Fluid RLB Gram Stain...........: Gram smear performed at [facility]. Culture: Rare Methicillin resistant Staphylococcus aureus Final [...] e Dillan Bridges MD Neurosurgery, PGY-2 Pager [phone] Risk and Morbidity Patient Risk Modifiers - Including but not limited to. Age: 68 y.o. female DNR: Full Code Transfer status/urgency : From Outside Hospital : From [facility] ER: Symptom Onset: More than 12 hours (09/13/18 7) Patient Acuity: 3 (09/13/182036) Destination: Acute (09/13/182036) Palliative/end of Life Care :No First GCS and if Mechanically Ventilated/Intubated: Best Motor Response: 6-->(M6) obeys commands (09/13/182036) Best Verbal Response: 5-->(V5) oriented (09/13/182036) Best Eye Response: 4-->(E4) spontaneous (09/13/182036) Score (Venus Coma Scale): 15 (09/13/182036) Last GCS and if Mechanically Ventilated/Intubation: Best Motor Response: 6-->(M6) obeys commands (09/14/18 1230) Best Verbal Response: 5-->(V5) oriented (09/14/18 1230) Best Eye Response: 4-->(E4) spontaneous (09/14/18 1230) Score (Chen Coma Scale): 15 (09/14/18 1230) Comatose State: If GCS<9 Then patient by definition is in a comatose state Score (Venus Coma Scale) Min: 15 Max: 15 Loss [...] weeks. Continuous tobacco abuse Coronary arteriosclerosis in [place] artery 03/06/2015 History of non-ST elevation myocardial [...] for Admission: Post Op Concern HPI: Gloria Adhikair is a 68 y.o. female with a [...] facial drooping at home and [facility] ED, CT head that was reportedly negative. At ED it was noted she had foul smelling disch arge from wound, contacted her [facility] ENT and referred to [facility] ED. No records of ED visit on [...] CMP WNL, lactate 1.4. Imaging from OSH ([facility] in [place]) being pushed ENT evaluated and await final recs Once stable, the patient was transferred to the Emergency Department Observation Unit with a diagnosis of possible surgical wound infection for continuation of care including observat ion PAST MEDICAL HISTORY: Past Medical History: Diagnosis Date Abnormal LFTs (liver function tests) CAD in [place] artery s/p NSTEMI 12/27/2014; status post stent [...] Bladder suspension 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 Shoe Stitcher shunt Tympanoplasty Right 1987 Lumpectomy of left breast 1978 Coronary stent placement 12/28/2014 status post stent placement in the mid LAD Removal of evp global multimedia sales shunt Cholecystectomy MEDICATIONS: Patient's Medications New Prescriptions [...] medications on file ALLERGIES: Allergies Allergen Reactions [place] Tar Hives Betadine [Povidone-Iodine (With Soap)] Rash [...] PMH of CAD, NSTEMI s/p stenet, HTN, COMMISSIONS COORDINATOR D, 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 1. Possible wound infection- no s/s of SIRS/sepsis, afebrile, no leukocytosis, no indicatio n for abx - ENT to re-eval in AM - NPO at [place] - images from OSH being pushed to [...] Disposition: TBD after ENT evaluation ANSON Simon [facility] EMERGENCY DEPARTMENT [address] [place], [place] [id number] documented in this enco unter Procedure Notes [...] columba lied to it. MD CHANDRIKA Hansen/NGUYEN /[id number] signed by Ata White MD at 09/27/2018 2:04 PM PDTWax , MD Ata - 09/22/2018 11:27 AM PDTAssociated Order(s): OPERATION RECORDDate of Service: 0 09/19/2018 Attending Surgeon:Ata White MD Mill Washer(s):Augusto Shaikh MD. Preoperative Diagnosis: Partially necrotic latissimus [...] to recovery room. Ata White MD MW/MODL /[id number] signed by Ata White MD at 09/26/2018 6:17 PM PDTSan cory, Alfreda Rondon MD - 09/19/2018 5:44 PM PDTAssociated Order(s): OPERATION RECORDProcedure(s ): OPERATION RECORDDate of Procedure: 09/19/18 Attending Surgeon: Alfreda Mccollum MD Mill Washer(s): Diana Richey MD, Dillan Bridges MD Preoperative [...] (05/08/18) with rotational flap performed by Dr tAa White. She r epresented with wound dehiscence [...] hen brought to the operative room on [facility]. General anesthesia was induced by the neuroanesthesia team. The eyes were taped shut to prevent corneal abrasion. The patient was placed in the supine position, and all pressure points were carefully padded. The head was secured in the horseshoe cathead operator. The hair over the area was clipped. [...] x2. Dillan Bridges MD Neurosurgery, PGY-2 Pager [phone] I certify that I was present for and participated in the critical parts of the procedure. I further certify that I was the principal neurosurgeon for this procedure. Alfreda Mccollum MD Clinical Instructor & Skull Base Fellow [phone] Department of Neurological Surgery [facility] [...] on stable regimen. Please page clinical pharmacist [phone]) or call central inpatient pharmacy ([phone]) with q uestions. Subjective/Objective: Indication: Cranial flap [...] Pertinent cultures/sensitivities: CULTURE, BLOOD BACTI & YEAST [facility] [[id number]] (Abnormal) [facility] Collected: 09/14/18 0025 Lab Status: Edited Result - FINAL Specimen: Blood from Peripheral Updated: 09/15/18 0502 CULTURE RESULT [facility] Staphylococcus epidermidisPanic Ref Range: GRAM STAIN Gram Positive BacilliPanic [facility] Gram positive cocci in clustersPanic Ref Range: Comment: This is an appended report. These results have been appended to a previously yovanny l verified report. Narrative: Growth in Aerobic Bottle - GPB only. Growth in Anaerobic Bottle - GPC and GPB. Organism Identified by Molecular ID, to be confirmed by culture. BLOOD CULTURE WORKUP [[id number]] (Abnormal) [facility] Collected: 09/14/18 0025 Lab [...] for the consult, Felton RowellD, BCPS Pager [phone] oCourtney pérez R Ph - 09/16/2018 12:19 [...] to fourth dose. Please page clinical pharmacist [phone]) or call central inpatient pharmacy ([phone]) with qu estions. Actual body weight: Weight: [...] Pertinent cultures/sensitivities: CULTURE, BLOOD BACTI & YEAST [facility] [[id number]] (Abnormal) [facility] Collected: 09/14/18 0025 Lab Status: Edited Result - FINAL Specimen: Blood from Peripheral Updated: 09/15/18 0502 CULTURE RESULT [facility] Staphylococcus epidermidisPanic Ref Range: GRAM STAIN Gram Positive BacilliPanic [facility] Gram positive cocci in clustersPanic Ref Range: Comment: This is an appended report. These results have been appended to a previously yovanny l verified report. Narrative: Growth in Aerobic Bottle - GPB only. Growth in Anaerobic Bottle - GPC and GPB. Organism Identified by Molecular ID, to be confirmed by culture. Thank you for consult, Courtney Mcmullen [facility]. Pager [phone] Julianna Alexander - 0 09/14/2018 11:28 AM PDT Pharmacist Managed Vancomycin: Initial Note Indication: soft tissue infection Goal trough: 10-15 CrCl: 50-60 ml/min Urine output: not collected in the ED Renal function: stable Assessment/Plan: - Start vancomycin 750 mg IV every 12 hours - Pharmacist will order trough level prior to fourth dose. Please page clinical pharmacist [phone]) or call central inpatient pharmacy ([phone]) with qu estions. Actual body weight: Weight: [...] which date the initial concern by her clinical care leader to 08/19/18. She repor ts intermittent right eyelid droop and lip discoordination since discharge but yesterday mellissa yusuf was found to have an acute left sided facial droop so her family brought her to the [facility] emergency department. 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 CAD in [place] artery s/p NSTEMI 12/27/2014; status post stent placement in the mid LAD Abnormal LFTs (liver function tests) MRSA (methicillin resistant staph aureus) culture positive post cariotomy for SAH Hemorrhagic stroke (HCC) 2007 aneurysm PONV (postoperative nausea and vomiting) Past Surgical History Procedure Date Partial thyroidectomy Hysterectomy Bladder suspension 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 Shoe Stitcher shunt Tympanoplasty 1987 Lumpectomy of left breast 1979 Coronary stent placement 12/28/2014 status post stent placement in the mid LAD Removal of evp global multimedia sales shunt Cholecystectomy Social History Tobacco Use Smoking status: Current Every Day Smoker Packs/day: 1.00 Years: 50.00 Pack years: 50.00 Types: Cigarettes Smokeless tobacco: Never Used Tobacco comment: Substance Use Topics Alcohol use: No Alcohol/week: 0.0 oz Drug use: No Family History Problem Relation Additional Family History Mother dementia Cancer Father brain Cancer Brother lung Allergies Allergen Reactions [place] Tar Hives Betadine [Povidone-Iodine (With Soap)] Rash [...] Resident Physician, PGY2 Otolaryngology, H&N Surgery Pager [phone] This patient's history and examination was discussed with me. I agree with the plan of care that has been recommended. Carlos Eduardo Maher MD Vibrating Screed Operator Head and Neck Surgical Oncology Microvascular Reconstructive [...] PMH of CAD, NSTEMI s/p stenet, HTN, COMMISSIONS COORDINATOR D, SAH from ACOM aneurysm rupture, s/p [...] cranioplasty with the Neurosurgery team 05/09, at [facility] time Dr White/Tesha performed a rotation [...] foul smelling discharge from wound, contacted her [facility] ENT and referred to [facility] ED. No records of ED visit on [...] CMP WNL, lactate 1.4. Imaging from OSH ([facility] in [place]) being pushed ENT evaluated and await final [...] resuming aspirin after surgery Remington Dexter NP [facility] EMERGENCY DEPARTMENT [address] [place] [address] [id number] signed by Remington Dexter NP at 09/14/2018 10:55 AM Breanna Sol RN - 09/14/2018 10:34 AM PDTPlease call Home Health when pt is discharging [phone] Kieran Sol RN - 09/14/2018 10:20 AM [...] patient. SBAR to Geovanni HUERTAS and Jacob (nursing service director)Electronically si gned by Lisa Cordova RN at [...] appears to be at neurol ogical baseline. [place] sandwich provided. Lisa English RN - 09/14/2018 [...] patient was seen at an ED in [place], [place] yesterday for symptoms o f transient [...] the prescription filled. She d rove to [place] today for ENT evaluation as the ED provider in [place] urged her to do so . On [...] weeks. Continuous tobacco abuse Coronary arteriosclerosis in [place] artery 03/06/2015 History of non-ST elevation myocardial [...] pain Subarachnoid hemorrhage due to ruptured aneurysm ([facility]) 2007 Goiter CAD in [place] artery s/p NSTEMI 12/27/2014; status post stent placement in the mid LAD Abnormal LFTs (liver function tests) MRSA (methicillin resistant staph aureus) culture positive post cariotomy for SAH Hemorrhagic stroke ([facility]) 2007 aneurysm PONV (postoperative nausea and vomiting) Past Surgical History Procedure Date Partial thyroidectomy Hysterectomy Bladder suspension 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 Shoe Stitcher shunt Tympanoplasty 1987 Lumpectomy of left breast 1979 Coronary stent placement 12/28/2014 status post stent placement in the mid LAD Removal of evp global multimedia sales shunt Cholecystectomy Medications Prior to Admission Medications [...] daily. Facility-Administered Medications: None Allergies Allergen Reactions [place] Tar Hives Betadine [Povidone-Iodine (With Soap)] Rash [...] 0.72 0.60 - 1.10 mg/dL EGFR - BAHRAINI >60 >60 mL/min EGFR NON -BAHRAINI >60 >60 mL/min SODIUM, PLASMA (LAB) 137 [...] imaging reques eli to be pushed from [facility]. ENT evaluated the patient in the ED, [...] tained via PIV placement using aseptic technique. Automotive General Sales Manager attempted to obtain second set of b lood cultures via straight stick to the left hand. During draw pt pulled her hand away unexp ectedly almost causing this screen writer to stick himself with the needle and pt bled on the floor . Bandage + pressure placed on IV site and blood drops cleaned. Defer second set of BC to charles wright in the visit. Ayush Hill RN - 09/13/2018 8:33 PM PDTPt had a flap procedure done 08/06/18 reversing a cranioplasty. Yesterday pt went to [facility] after her son noticed some left [...] he wanted patient to be seen in [facility]. Pr drove from [facility] today. Respirations regular and unlabored, pt [...] prefers the oxymask vs Nasal Cannula (09/14/182038) [facility] IP NURSE HANDOFF: [facility] hospital course events: Admit: Admitted to [facility] wi th TIA, transferred to [facility] with infection and nonviable flap (09/13). Hx: [...] her feet and has been up ad cadnece in room and hallway. COMFORT/ANXIETY/BEHAVIOR Patient/Family Target: [...] TIA at home and [facility]. - Encourage increased po intake Barriers to discharge: She will discharge today back to [place]. andoff - Danni Hobson RN - 09/21/2018 11:33 PM PDTNursing Handoff Patient Daily Goal: Go outside to 9th floor (09/17/18815) Patient Specific Preferences: prefers the oxymask vs Nasal Cannula (09/14/182038) [facility] IP NURSE HANDOFF: [facility] hospital course events: Admit: Admitted to [facility] wi th TIA, transferred to [facility] with infection and nonviable flap (09/13). Hx: [...] TIA at home and was admitted [facility]. - Encourage increased po intake Barriers to discharge: She will discharge on Tuesday with her friends and her son will pick her up Tuesday from their house. andoff - Nneka Wesley RN - 09/21/2018 2:41 PM PDTNursing Handoff Patient Daily Goal: Go outside to 9th floor (09/17/18815) Patient Specific Preferences: prefers the oxymask vs Nasal Cannula (09/14/182038) [facility] IP NURSE HANDOFF: [facility] hospital course events: Admit: Admitted to [facility] wi th TIA, transferred to [facility] with infection and nonviable flap (09/13). Hx: ruptured A-comm aneurysm with SAH in 2007. 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 Infection, multiple flap revisions. July 2018 [...] TIA at home and was admitted [facility]. - Encourage increased po intake Barriers to discharge: She will discharge on Tuesday with her friends and her son will pick her up Tuesday from their house. andoff - Courtney Hankins RN - 09/21/2018 6:44 AM PDTNursing Handoff Patient Daily Goal: Go outside to 9th floor (09/17/18 0816) Patient Specific Preferences: prefers the oxymask vs Nasal Cannula (09/14/182038) [facility] IP NURSE HANDOFF: [facility] hospital course events: Admit: Admitted to [facility] wi th TIA, transferred to [facility] with infection and nonviable flap (09/13). Hx: ruptured A-comm aneurysm with SAH in 2007. 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 Infection, multiple flap revisions. July 2018 [...] TIA at home and was admitted to [facility] b efore coming to [facility]. - Encourage increased po intake Barriers to [...] N - 09/20/2018 6:07 PM PDTAdmitted to [facility] with TIA, transferred to [facility] with infection and nonviable flap (09/13). Hx: ruptured A-comm aneurysm with SAH in 2007. 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 Infection, multiple flap revisions. July 2018 Wound debridement with Rt latissi mus dorsi flap and replacement of mesh cranioplasty. 09/14: Necrotic flap debrided at bedside by ENT 09/19: Scalp rotational flap done in [place] Nursing Handoff Patient Daily Goal: Go outside to 9th floor (09/17/18 0816) Patient Specific Preferences: prefers the oxymask vs Nasal Cannula (09/14/182038) [facility] IP NURSE HANDOFF: NURSING ASSESSMENT & RECOMMENDATIONS [...] from the [facility] Evaluation [id number] [facility] Day: 7 Date of : 1950 [...] Abnormal LFTs (liver function tests) CAD in [place] artery s/p NSTEMI 12/27/2014; status post stent [...] Bladder suspension 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 Shoe Stitcher shunt Tympanoplasty Right 1987 Lumpectomy of left breast 1979 Coronary stent placement 12/28/2014 status post stent placement in the mid LAD Removal of evp global multimedia sales shunt Cholecystectomy Present at bedside other than patient and physical therapist: Pt's brother and [id number]-yx-py w Subjective: Feeling better, has been getting up just fine Living Environment: will disch with her brother and wcpygy-px-ccb to their home in [facility] [id number]-am-[id number] will manage wound care. Otherwise pt lives alone in [place] Prior level of function: independent with mobility and gait Equipment: has 2 helmets at home Patient / Family Goal: get better Communication: Bulgarian Barriers: None Pain: no reports of pain. [...] rehabilitation: assessment and treatme nt (5th ed.). [place]: F. [employer]. p.254 Functional Mobility and Gait: supine to sit independent Sit to stand independent Gait independent x 500 ft, steady with lateral head turns, 90, 180 and 360 deg turns, negot iating obstacles Outcome Measure: 1. [facility] BASIC MOBILITY Difficulty turning over in bed [...] A Little - Minimal/Contact Guard Assist/Superv ision [facility] Basic Mobility Total Score 23 Interpretation of [facility] Short Form - Basic Mobility: Predicts discharge post hospitalization ([facility] raw score: 6-24) Home = 20.1 Home with home care = 17.9 [facility] facility = 13.6 Inpatient rehabilitation facility = 13.6 care home care = 11.5 Susan Ledesma. The use of functional outcome measure in acute care to guide discharg e recommendations. J Acute Banquet Prep Cook. 2012;3(3):248 Pt Education: Discussed mobility, helmet as [...] acute PT indicated, signing off. Interpretation of [facility] Short Form - Basic Mobility: CMS Modifier [...] and ambulate throughout unit with bedside nurse/ RAWHIDE TRIMMER supervision Discharge Recommendations: Intermittent assistance at discharge [...] discharge summary. Jaylon Amor, PT, DPT Pager: [phone] ussein - Andree Hagen ra, RN - 09/20/2018 11:30 AM PDTNursing Handoff Patient Daily Goal: Go outside to 9th floor (09/17/18 0816) Patient Specific Preferences: prefers the oxymask vs Nasal Cannula (09/14/182038) [facility] IP NURSE HANDOFF: [facility] hospital course events: Admit: Admitted to [facility] wi th TIA, transferred to [facility] with infection and nonviable flap (09/13). Hx: ruptured A-comm aneurysm with SAH in 2007. 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 Infection, multiple flap revisions. July 2018 [...] TIA at home and was admitted to [facility] b efore coming to [facility]. - Encourage increased po intake Barriers to [...] RN - 09/20/2018 1:50 AM PDTNursing Handoff [facility] IP NURSE HANDOFF: [facility] hospital course events: Admit: Admitted to [facility] wi th TIA, transferred to [facility] with infection and nonviable flap (09/13). Hx: ruptured A-comm aneurysm with SAH in 2007. 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 Infection, multiple flap revisions. July 2018 [...] TIA at home and was admitted to [facility] b efore coming to [facility]. - Encourage increased po intake - monitor PVR, last voided at 0600 w/ PVR of 350ml. Barriers to discharge: Pending clinical course andoff - Vida Rogel RN - 09/19/2018 7:02 PM PDTNursing Handoff [facility] IP NURSE HANDOFF: [facility] hospital course events: Admit: Admitted to [facility] wi th TIA, transferred to [facility] with infection and nonviable flap (09/13). Hx: ruptured A-comm aneurysm with SAH in 2007. 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 Infection, multiple flap revisions. July 2018 Wound debridement with Rt latissi mus dorsi flap and replacement of mesh cranioplasty. 09/14: Necrotic flap debrided at bedside by ENT Recommendations Forward: - Scalp rotational flap done today 09/19 - Pt needs to call to get up tonight, bed alarm on - Bneavides catheter removed 1545 in PAC U. Pt [...] TIA at home and was admitted to [facility] b efore coming to [facility]. - Encourage increased po intake andoff - [...] pain medication information: none Functional Epidural: N/A ACID OPERATOR: N/A Respiratory: RR: 19 , O2 Sat: 90 % , O2 Delivery: Nasal cannula Breath Sounds: Ex (hx copd) DARIEN: LLL: RUL: RLL: MELISSA No Comment: no hx Cardiac: BP: 118/93 HR: 91 GI: Nausea/Vomiting Status: No Signs/Symptoms: Interventions: Assessment: Comments: denies nausea. 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 Cont nicotine patch Educate on benefits of smoking cessation ssessment & Plan No Barry Alvarez FNP - 09/19/2018 2:34 PM PDTAssociated Problem(s): Shisew19 pack year smoker. Cont nicotine patch Educate [...] 09/19/2018 2:28 PM PDTAssociated Problem(s): CAD in [place] lara ryNSTEMI in 2015 s/p mid LAD [...] prefers the oxymask vs Nasal Cannula (09/14/182038) [facility] IP NURSE HANDOFF: [facility] hospital course events: Admitted to [facility] with TIA, transferred to [facility] with infection and nonviable flap (09/13). Hx: ruptured A-comm aneurysm with SAH in 2007. 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 Infection, multiple flap revisions. July 2018 [...] prefers the oxymask vs Nasal Cannula (09/14/182038) [facility] IP NURSE HANDOFF: [facility] hospital course events: Admitted to [facility] with TIA, transferred to [facility] with infection and nonviable flap (09/13). Hx: ruptured A-comm aneurysm with SAH in 2007. 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 Infection, multiple flap revisions. July 2018 [...] RN - 09/18/2018 12:08 PM PDTNursing Handoff [facility] IP NURSE HANDOFF: [facility] hospital course events: Admit: Admitted to [facility] wi th TIA, transferred to [facility] with infection and nonviable flap (09/13). Hx: ruptured A-comm aneurysm with SAH in 2007. 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 Infection, multiple flap revisions. July 2018 [...] TIA at home and was admitted to [facility] b efore coming to [facility]. - Encourage increased po intake lan of Care - Georgia Bangura, PT - 09/18/2018 10:04 AM PDTPHYSICAL THERAPY CONTACT NOTE: Orders received, chart reviewed,patient is heading to OR on 09/19/18.Patient will be evaluat ed post surgery.RN updated.Patient is ad cadence in room with ambulation-as per conversation edith louise RN. Georgia Bangura,[place] [id number] signed by Georgia Bangura PT at 09/18/2018 10:06 AM PDTHandoff - Marni Gracia RN - 09/18/2018 1:42 AM PDTNursing Handoff Patient Daily Goal: Go outside to 9th floor (09/17/18 0816) Patient Specific Preferences: prefers the oxymask vs Nasal Cannula (09/14/182038) [facility] IP NURSE HANDOFF: [facility] hospital course events: Admitted to [facility] with TIA, transferred to [facility] with infection and nonviable flap (09/13). Hx: ruptured A-comm aneurysm with SAH in 2007. 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 Infection, multiple flap revisions. July 2018 [...] TIA at home and was admitted to [facility] b efore coming to [facility].(left side droop) - Encourage increased po intake [...] prefers the oxymask vs Nasal Cannula (09/14/182038) [facility] IP NURSE HANDOFF: [facility] hospital course events: Admitted to [facility] with TIA, transferred to [facility] with infection and nonviable flap (09/13). Hx: ruptured A-comm aneurysm with SAH in 2007. 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 Infection, multiple flap revisions. July 2018 [...] TIA at home and was admitted to [facility] b efore coming to [facility].(left side droop) - Encourage increased po intake [...] prefers the oxymask vs Nasal Cannula (09/14/182038) [facility] IP NURSE HANDOFF: [facility] hospital course events: Admit: Admitted to [facility] wi th TIA, transferred to [facility] with infection and nonviable flap (09/13). Hx: ruptured A-comm aneurysm with SAH in 2007. 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 Infection, multiple flap revisions. July 2018 [...] the 9K deck with her brother and kxswna-wj-abp Recommendations Forward: - Scalp rotational flap planned [...] TIA at home and was admitted to [facility] b efore coming to [facility]. - Encourage increased po intake - Bowel Incontinence 09/16- hold ss Barriers to discharge: OR Tuesday andoff - Ashley Garcia RN - 09/17/2018 5:52 AM PDTNursing Handoff [facility] IP NURSE HANDOFF: [facility] hospital course events: Admit: Admitted to [facility] wi th TIA, transferred to [facility] with infection and nonviable flap (09/13). Hx: ruptured A-comm aneurysm with SAH in 2007. 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 Infection, multiple flap revisions. July 2018 [...] TIA at home and [facility]. - Encourage increased po intake - Bowel Incontinence 09/16- hold ss Barriers to discharge: OR Tuesday andoff - Shabana Rogel RN - 09/16/2018 6:19 PM PDTNursing Handoff [facility] IP NURSE HANDOFF: [facility] hospital course events: Admit: Admitted to [facility] wi th TIA, transferred to [facility] with infection and nonviable flap (09/13). Hx: ruptured A-comm aneurysm with SAH in 2007. 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 Infection, multiple flap revisions. July 2018 [...] TIA at home and [facility]. - Encourage increased po intake lan of Care - Tom Harman, PT - 09/16/2018 9:26 AM PDTPhysical Therapy Contact Note: Chart reviewed, RN consulted. Per RN, pt currently cleared to be up ad cadence. Plans to go to the OR on , 09/19, will follow up following procedure. David Harman PT, DPT Pager: [phone] andoff - Odette Garcia RN - 09/16/2018 5:31 AM PDTNursing Handoff Patient Daily Goal: Get some rest (09/15/182010) Patient Specific Preferences: prefers the oxymask vs Nasal Cannula (09/14/182038) [facility] IP NURSE HANDOFF: [facility] hospital course events: [...] cranioplasty with the Neurosurgery team 05/09, at [facility] time Dr White/Tesha performed a rotation [...] facial drooping at home and went to [facility] ED, CT head that was reportedly negative. At ED it was noted she had foul smelling disch arge from wound, contacted her [facility] ENT and referred to [facility] ED. No records of ED visit on [...] CMP WNL, lactate 1.4. Imaging from OSH ([facility] in [place]) being pushed ENT evaluated and await final recs Once stable, the patient was transferred to the Emergency Department Observation Unit with a diagnosis of possible surgical wound infection for continuation of care including observat ion SAFETY Patient/Family Target: Gloria will ambulate safely ad cadence Progress to Target: Improving As evidenced by: Gloria is up ad cadence in . Continue to [facility] as she has occassionally endorsed [...] Patient lives at home by herself in [facility]. Current Social Supports: Patient has a son and daughter in law that live nearby. They stop by in the evenings after work to assist patient with things as needed. Patient has a daugh ter in the [place] area, who stays 'very busy with work.' She has a brother in the [place] area who supports patient as much as able as well. Financial/Insurance status/ Employment/Education or Vocational training: Patient is covered by Medicare. She is retired. No financial concerns discussed. Activities/Spirituality: Not discussed. Medical issues: Patient Active Problem List Diagnosis Chronic obstructive pulmonary disease (HCC) HTN (hypertension) Chronic pain Skull defect Coronary arteriosclerosis in [place] artery History of non-ST elevation myocardial infarction [...] [facility] [address] [place] [address] Mental health history: Nothing noted in chart [...] or page if needed. JUSTINA Peña, CSWA Fuel Conversion Technician KD7 [facility] P [id number], [id number] lan of Care - Daniel Wolff i, [...] prefers the oxymask vs Nasal Cannula (09/14/182038) [facility] IP NURSE HANDOFF: [facility] hospital course events: [...] with the Neurosurgery team 05/09, at [facility] time Dr White/Tesha performed a rotation [...] facial drooping at home and went to [facility] ED, CT head that was reportedly negative. At ED it was noted she had foul smelling disch arge from wound, contacted her [facility] ENT and referred to [facility] ED. No records of ED visit on [...] CMP WNL, lactate 1.4. Imaging from OSH ([facility] in [place]) being pushed ENT evaluated and await final recs Once stable, the patient was transferred to the Emergency Department Observation Unit with a diagnosis of possible surgical wound infection for continuation of care including observat ion SAFETY Patient/Family Target: Gloria will ambulate safely ad cadence Progress to Target: Improving As evidenced by: Gloria is up ad cadence in . Continue to [facility] as she has occassionally endorsed [...] 09/27/2018 | | 13:25:22DT: 09/27/2018 13:31:49Job #: [id number] | | | |Addendum: This woman had Integra used to reconstruct her scalp. The size of the Integra w as 14 x 5 cm. This was laid into the wound and secured with genoveva and then a dressing columba lied to it. | | | | | | | |Ata White MD | |CHANDRIKA/NGUYEN | | | | | | /[id number] | + + OPERATION RECORD (09/22/2018 11:27 AM PDT) + + | Procedure Note | + + | Ata White MD - 09/22/2018 11:27 AM PDT Date of Service: 09/19/2018 Attending | | Surgeon:Ata White MD Mill Washer(s):Augusto Shaikh MD.Preoperative Diagnosis: | | Partially necrotic [...] 09/26/2018 12:12:19DT: | | 09/26/2018 12:30:21Job #: [id number] | |Ata White MD | |CHANDRIKA/NGUYEN | | | | | | /[id number] | + + CBC (HEMOGRAM) ONLY (09/22/2018 [...] [facility] | [address] | [place] [address] | | | SERVICES, CORE | PARK [...] | | | LABORATORY | | | BAHRAINI | | | SERVICES, | | | [...] MDRD equation recommended by the National | [facility] | | Kidney Disease Education Program. Estimated [...] [facility] | [address] | [place] [address] | | | SERVICES, CORE | PARK [...] [facility] | [address] | [place] [address] | | | SERVICES, CORE | PARK [...] | + + + + + | [facility] | [address] | [place] [address] | | | SERVICES, CORE | PARK [...] | + + + + + | [facility] | [address] | [place] [address] | | | SERVICES, CORE | RAMSES [...] | | | LABORATORY | | | BAHRAINI | | | SERVICES, | | | [...] MDRD equation recommended by the National | [facility] | | Kidney Disease Education Program. Estimated [...] | + + + + + | [facility] | [address] | [place] [address] | | | SERVICES, CORE | PARK [...] | + + + + + | [facility] | [address] | [place] [address] | | | SERVICES, CORE | PARK [...] | + + + + + | [facility] | [address] | [place] [address] | | | SERVICES, CORE | RAMSES [...] [facility] | [address] | [place] [address] | | | JOHNSON, RYAN | RAMSES [...] [facility] | [address] | [place] [address] | | | SERVICES, CORE | PARK [...] | | | LABORATORY | | | BAHRAINI | | | SERVICES, | | | [...] MDRD equation recommended by the National | [facility] | | Kidney Disease Education Program. Estimated [...] | + + + + + | [facility] | [address] | [place] [address] | | | JOHNSON, RYAN | [address] | | | + + + + + OPERATION RECORD (09/19/2018 5:44 PM PDT) + + + | Narrative | Performed At | + + + | Alfreda Mccollum MD 10/03/2018 3:27 PM Date of Procedure: | | | 09/19/18 Attending Surgeon: Alfreda Mccollum, | | | Mill Washer(s): | | | Diana Richey MD, Dillan [...] | | | the operative room on [facility]. General anesthesia was | | | induced by the neuroanesthesia team. The eyes were taped shut to | | | prevent corneal abrasion. The patient was placed in the supine | | | position, and all pressure points were carefully padded. The head | | | was secured in the horseshoe cathead operator. The hair over the area was | [...] | Dillan Bridges MD Neurosurgery, PGY-2 Pager [phone] I | | | certify that I was present for and participated in the critical | | | parts of the procedure. I further certify that I was the principal | | | neurosurgeon for this procedure. Alfreda Mccollum MD | | | Clinical Instructor & Skull Base Fellow [id number] Department of | | | Neurological Surgery Formerly [facility], [place] | | | | | + + [...] [facility] | [address] | [place], [place] | | | RAÚL JAY OF [facility] | [facility] | [address] | | | TESTS | | | [...] | | AIRPORT - | | | [facility] | + + + + + + + + | Performing | Address | City/State/Zipcode | Phone Number | | Organization | | | | + + + + + | [facility] | [address] | [place] [address] | | | [place] | | | [...] | polymorphonuclear cells No organisms seen | [place] | + + + + + + [...] + | [facility] | [address] | [place] [address] | | | [place] | | | | + + + [...] + | [facility] | [address] | [place] [address] | | | [facility] | | | | + + + [...] + | [facility] | [address] | [place] [address] | | | [facility] | | | | + + + [...] + | [facility] | [address] | [place] [address] | | | [place] | | | | + + + [...] + | [facility] | [address] | [place] [address] | | | [place] | | | [...] DEPT OF | [address] | [place], [place] | | | CARDIOLOGY | [address] | [address] | | + + + + + [...] [facility] | [address] | [place], [place] | | | [facility] | [address] | [address] | | | TESTS | | | [...] [facility] | [address] | [place] [address] | | | SERVICES, CORE | RAMSES [...] | | | LABORATORY | | | BAHRAINI | | | SERVICES, | | | [...] MDRD equation recommended by the National | [facility] | | Kidney Disease Education Program. Estimated GFR Interpretive | LABORATORY | | Information: <60 mL/min/1.73 sq m Chronic Kidney | SERVICES, [facility] | | Disease <15 mL/min/1.73 sq m [...] | + + + + + | [facility] | [address] | [place] [address] | | | RYAN ORNELAS | RAMSES [...] [facility] | [address] | [place] [address] | | | SERVICES, CORE | PARK [...] [facility] | [address] | [place] [address] | | | SERVICES, | [address] [...] [facility] | [address] | [place] [address] | | | SERVICES, | [address] [...] [facility] | [address] | [place] [address] | | | SERVICESYRAN | [address] | | | + [...] [facility] | [address] | [place] [address] | | | RYAN ORNELAS | [address] [...] | | | LABORATORY | | | BAHRAINI | | | SERVICES, | | | [...] | + + + + + | [facility] | [address] | [place] [address] | | | SERVICES, RYAN | RAMSES [...] | + + + + + | [facility] | [address] | [place] [address] | | | SERVICES, CORE | RAMSES [...] | + + + + + | [facility] | [address] | [place] [id number] | | | SERVICES, CORE | RAMSES [...] | + + + + + | [facility] | [address] | [place] [address] | | | SERVICES, CORE | RAMSES [...] | + + + + + | [facility] | [address] | [place] [address] | | | SERVICES, CORE | RAMSES [...] | | | LABORATORY | | | BAHRAINI | | | SERVICES, | | | [...] MDRD equation recommended by the National | [facility] | | Kidney Disease Education Program. Estimated [...] | + + + + + | [facility] | [address] | [place] [address] | | | SERVICES, CORE | PARK [...] | + + + + + | [facility] | [address] | [place] [address] | | | SERVICES, CORE | RAMSES [...] | | | LABORATORY | | | BAHRAINI | | | SERVICES, | | | [...] [facility] | [address] | [place] [address] | | | SERVICES, CORE | PARK [...] [facility] | [address] | [place] [address] | | | SERVICES, CORE | PARK [...] | + + + + + | [facility] | [address] | [place] [address] | | | SERVICES, CORE | RAMSES [...] | | | LABORATORY | | | BAHRAINI | | | SERVICES, | | | [...] MDRD equation recommended by the National | [facility] | | Kidney Disease Education Program. Estimated [...] | + + + + + | [facility] | [address] | [place] [address] | | | SERVICES, CORE | RAMSES [...] Note | + + | Service Account, [employer] Res In Interface - 09/14/2018 3:14 PM [...] [facility] | [address] | [place] [address] | | | SERVICES, RYAN | RAMSES [...] + | [facility] | [address] | [place] [address] | | | [place] | | | [...] [facility] | | | | | | ARÚL JAY | | | | | | [...] [facility] | [address] | [place], [place] | | | RAÚL JAY OF [facility] | [address] | [address] | | | TESTS | | | [...] | + + + + + | [facility] | [address] | [place] [address] | | | RYAN ORNELAS | [address] [...] | + + + + + | [facility] | [address] | [place] [address] | | | JOHNSON, RYAN | [address] [...] | + + + + + | [facility] | [address] | [place] [address] | | | SERVICES, RYAN | RAMSES [...] + | [facility] | [address] | [place] [address] | | | SERVICES, | [address] [...] [facility] | [address] | [place] [address] | | | SERVICES, CORE | PARK [...] | | | LABORATORY | | | BAHRAINI | | | SERVICES, | | | [...] | + + + + + | [facility] | [address] | [place] [address] | | | SERVICES, RYAN | [address] | | | + + + + + ED INFORMATION EXCHANGE (09/13/2018 8:24 PM PDT) + + | Specimen | + + | | + + + + + | Narrative | Performed At | + + + | [facility]LECT[facility]?NOTIFICATION?09/13/2018 20:23?GLORIA ADHIKARI?MRN: | [facility] | | [id number] Criteria Met 5 Visits In 12 Months [...] E.D. Visit Count (12 mo.) Facility Visits [facility] | | | [facility] 3 [facility] 2 Total 5 Note: | | | Visits indicate total known visits. Recent Emergency Department | | | Visit Summary Date Facility City State Type Diagnoses or Chief | | | Complaint Sep 13, 2018 [facility] [place] | | [place] Emergency 10,800. post op comp Sep 12, 2018 [facility]. | | | [place] Emergency Chief Complaint: POST OP ISSUE | | | July 10, 2018 [facility] [place] Emergency | | | 10,800. CRANIAL PLASTY ISSUE 18,400. Disruption of | | | external operation (surgical) wound, not elsewhere classified, | | | initial encounter 18,400. Other specified postprocedural states | | | May 14, 2018 [facility] [place] | | | Emergency 10,800. post-op complications, open head wound | | | post-op 18,400. Other acquired deformity of head Dec [facility], | 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 Ear, Nose, | | | Throat 18,400. Disruption of external operation (surgical) | | | wound, not elsewhere classified, initial encounter July 10, 2018 | | | [facility] [place] Inpatient | | | 18,400. Other specified postprocedural states 18,400. | | | Disruption of external operation (surgical) wound, not elsewhere | | | classified, initial encounter May 14, 2018 [facility] | | | [facility] [place] Neuro Surgery 18,400. Other | | | acquired deformity of head May 08, 2018 [facility] | | | [place] Neuro Surgery 18,400. Other acquired | | | deformity of head 18,400. 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 Nontraumatic subarachnoid hemorrhage, unspecified Dec 03, | | | 2017 [facility] [place] Neuro Surgery | | [...] Portal This patient has registered at the [facility] | | | [place] Emergency Department For more information visit: | | | [email or web address] | | | [email or web address] PLEASE NOTE: 1. Any care recommendations and [...] or completeness of information provided. ? 2019 [employer] | | | [employer] - www.Abcam | | + + + + + [...] Visit Count (12 | | mo.)Facility Visits [facility] 3 [facility] 2 | | Total 5 Note: Visits indicate total known visits. Recent Emergency Department Visit | | SummaryDate [facility] [place] Type Diagnoses or Chief Complaint Sep 13, 2018 [place] | | [facility] [place] Emergency 10,800. post op comp Sep 12, 2018 | | [facility] [place] [place] [facility] Chief Complaint: POST OP ISSUE July 10, 2018 | | [facility] [place] Emergency 10,800. CRANIAL PLASTY ISSUE | | 18,400. Disruption of external operation (surgical) wound, not elsewhere classified, | | initial encounter 18,400. Other specified postprocedural states May 14, 2018 [place] | | [facility] [place] Emergency 10,800. post-op complications, | | open head wound post-op 18,400. Other acquired deformity of head Dec 02, 2017 [facility] | | 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 Ear, Nose, Throat 18,400. Disruption of | | external operation (surgical) wound, not elsewhere classified, initial encounter June | | 2018 [facility] [place] Inpatient 18,400. Other | | specified postprocedural states 18,400. Disruption of external operation (surgical) | | wound, not elsewhere classified, initial encounter May 14, 2018 [facility] | | [facility] [place] Neuro Surgery 18,400. Other acquired deformity of head | | May 08, 2018 [facility] [place] Neuro Surgery 18,400. | | Other acquired deformity of head 18,400. 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 | | Nontraumatic subarachnoid hemorrhage, unspecified Dec 03, 2017 [facility] | | [facility] [place] Neuro Surgery 18,400. Other [...] | providers on record at this time. JobpartnersThiraine patient has registered at the | | [facility] Emergency Department For more information visit: | | [email or web address] PLEASE | | NOTE: 1. Any care [...] to the | | limitations of applicable [employer] Policies. 3. You should consult directly with | | the organization that provided a care guideline or other clinical history with any | | questions about additional information or accuracy or completeness of information | | provided.? 2019 [employer]. - www.Abcam | | Allergy status to other antibiotic agents status | | Allergy status to other drugs, medicaments and biological substances status | | Allergy status to sulfonamides status | | | | | | | |Recent Inpatient Visit Summary | |Date Facility City State Type Diagnoses or Chief Complaint | |Aug 03, 2018 [facility] [place] Ear, Nose, Throat | | 18,400. Disruption of external operation (surgical) wound, not elsewhere classified, init ial encounter | | | |July 10, 2018 [facility] [place] Inpatient | | 18,400. Other specified postprocedural states | | 18,400. Disruption of external operation (surgical) wound, not elsewhere classified, ini tial encounter | | | |May 14, 2018 [facility] [place] Neuro Surgery | | 18,400. Other acquired deformity of head | | | |May 08, 2018 [facility] [place] Neuro Surgery | | 18,400. Other acquired deformity of head | | 18,400. Communicating hydrocephalus | | 18,400. Nontraumatic subarachnoid hemorrhage, unspecified | | | |Dec 03, 2017 [facility] [place] Neuro Surgery | | [...] providers on record at this time. | |[employer] Portal | |This patient has registered at the [facility] Emergency Departmen t | |For more information visit: [email or web address] | |PLEASE NOTE: | | 1. Any [...] information provided. | | | |? 2019 [employer]. - www.[email or web address] | + + + + + + + | Performing | Address | City/State/Zipcode | Phone Number | | Organization | | | | + + + + + | [facility] | [address] | [place], [place] | [phone] | | [employer] | [address] | [address] | | + + + + + [...]
--- OUTSIDE RECORDS SUMMARY | ~2019-10-16 | XMS | Encounter Summary ---
Demographics + + + | Address | [address] | | | [place] [address] | + + + | Home Phone [...] | Author | [facility] | + + + | Organization | [facility] | + + + | Address | [...] Team Providers + +------+ + | Care Precipitation Equipment Tender Name | Role | Phone | [...] | | | 2014 | Event | [facility] | [address] | | | | | [facility] | [facility] | | | | | Hospital Admitting | [place] [address] | | | | | Desk Located on the | [phone] | | | | | 9th floor | | | | | | [place], [place] | Matthew Smyth MD | | | | | [address] | | | +--------+ + + + [...] be different from the original. 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 Refractory Furnace Designer shunt Tympanoplasty Right 1987 Lumpectomy of left [...] - 06/07/2014 7:09 AM PDT Cielo Bell [id number] Allergies Allergen Reactions Jber Tar Hives Betadine [Povidone-Iodine (With Soap)] Unknown [...] Bladder suspension 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 No [...] Performed by Resident MATTHEW SMYTH DL by nail polish brush machine feeder student Saurabh. Direct supervision by Miranda throughout [...] normal Turgor: turgor normal Implants: shunt, Comments: CHEMICAL RECOVERY OPERATOR shunt right side with skull defect. No [...] normal Turgor: turgor normal Implants: shunt, Comments: CHEMICAL RECOVERY OPERATOR shunt right side BMI 23.8 documented in [...]
--- OUTSIDE RECORDS SUMMARY | ~2019-10-16 | XMS | Encounter Summary ---
Demographics + + + | Address | [address] | | | [place] [address] | + + + | Home Phone [...] Team Providers + +------+ + | Care Alcoholic Counselor Name | Role | Phone | [...] | | | [facility] | [place], [place] | | | | | Health and Healing, | [address] | | | | | [facility] | [phone] | | | | | floor [place], [place] | | | | | | [address] | | | | | | [phone] | | | +--------+ + + + [...] t to Dr. Luis Manuel Baker at [phone] signed by Aline Duvlal at 03/22/2008 9:53 AM PSTdocumented in this encounter Plan of Treatment Not on filedocumented as of this encounter Visit Diagnoses + + | Diagnosis | + + | Communicating hydrocephalus (HCC) Communicating hydrocephalus | + + | SAH (subarachnoid hemorrhage) (HCC) Subarachnoid hemorrhage | + + documented in this encounter"
--- OUTSIDE RECORDS SUMMARY | ~2019-10-16 | XMS | Encounter Summary ---
Demographics + + + | Address | [address] | | | [place] [address] | + + + | Home Phone [...] + + + | Author | [facility] | + + + | Organization | [facility] | + + + | [...] Team Providers + +------+ + | Care Landscaping Supervisor Name | Role | Phone | + +------+ + | Mary Vazquez PA-C | PCP | | + +------+ + Encounter Details +--------+ + + + + | Date | Type | Department | Care Team | Description | +--------+ + + + + | 05/14/ | Procedure | Diagnostic Imaging | | | | 2018 | Pass | Services at [facility] | | | | | | [address] | | | | | | [facility] F[facility] | | | | | | [facility], [address] [place] [address] | | | | | | [place], [place] | | | | | | [address] | | | | | | [phone] | | | +--------+ + + + [...]
--- OUTSIDE RECORDS SUMMARY | ~2019-10-16 | XMS | Encounter Summary ---
Demographics + + + | Address | [address] | | | [place] [address] | + + + | Home Phone [...] Team Providers + +------+ + | Care Dairy Worker Name | Role | Phone | [...] | [address] [facility] | [place], [place] | | | | | Health and Healing, | [address] | | | | | Building , 8th | [phone] | | | | | floor [place], [place] | | | | | | [address] | | | | | | [phone] | | | +--------+ + + + [...]
--- OUTSIDE RECORDS SUMMARY | ~2019-10-16 | XMS | Encounter Summary ---
Demographics + + + | Address | [address] | | | [place] [address] | + + + | Home Phone | | + + + | Preferred Language | Unknown | + + + | Marital Status | | + + + | Zoroastrianism Affiliation | MET | + + + [...] Team Providers + +------+ + | Care Tunnel Mucker Name | Role | Phone | + [...] Ave | | | | | [facility] | [place], [place] | | | | | Health and Healing, | [address] | | | | | [facility] | [phone] | | | | | [place], [place] | | | | | | [address] | | | | | | [phone] | | | +--------+ + + + [...]
--- OUTSIDE RECORDS SUMMARY | ~2019-10-16 | XMS | Encounter Summary ---
Demographics + + + | Address | [address] | | | [place] [address] | + + + | Home Phone [...] Providers + +------+ + | Care Machine Shop Apprentice Name | Role | Phone | + [...] [address] | [employer] [address] [facility] | | | | | [facility] | [facility] | | | | | Health and Healing, | [place], [place] | | | | | Building [address], | [address] | | | | | floor [place], [place] | [phone] | | | | | [address] | | | | | | [phone] | | | +--------+ + + + [...] exposed hardware, they should bring her to [facility] for a n evaluation, please. (See resident documentation). documented in this encounter Plan of Treatment Not on filedocumented as of this encounter Visit Diagnoses Not on filedocumented in this encounter"
--- OUTSIDE RECORDS SUMMARY | ~2019-10-16 | XMS | Encounter Summary ---
Demographics + + + | Address | [address] | | | [place] [address] | + + + | Home Phone | | + + + | Preferred Language | Unknown | + + + | Marital Status | | + + + | Rastafari Affiliation | MET | + + + | Race | White | + + + | Ethnic Group | Not or | + + + Author + + + | Author | [facility] | + + + | Organization | [facility] | + + [...] Team Providers + +------+ + | Care Cytogeneticist Name | Role | Phone | + [...] Ave | | | | | [facility] | [place], [place] | | | | | Health and Healing, | [address] | | | | | Building , [address]th | [phone] | | | | | floor [place], [place] | | | | | | [address] | | | | | | [phone] | | | +--------+ + + + [...]
--- OUTSIDE RECORDS SUMMARY | ~2019-10-16 | XMS | Encounter Summary ---
Demographics + + + | Address | [address] | | | [place] [address] | + + + | Home Phone [...] Team Providers + +------+ + | Care Instructor Of Nursing Name | Role | Phone | + [...] Head and Neck | MD [address] [facility] | | | | | Surgery Services at | [facility] | | | | | [address] | [place], [place] | | | | | [address] | [address] | | | | | Physician's | [phone] | | | | | [place], 2nd floor | | | | | | [place], [place] | | | | | | [address] | | | | | | [phone] | | | +--------+ + + + [...]
--- OUTSIDE RECORDS SUMMARY | ~2019-10-16 | XMS | Encounter Summary ---
Demographics + + + | Address | [address] | | | [place] [address] | + + + | Home Phone [...] Team Providers + +------+ + | Care Software Test Automation Engineer Name | Role | Phone | [...] CRANIOPLASTY | | 2019 | | [facility] | [address] | EXPLANT, COMPLEX | | | | Rd [facility] | [place], [place] | WOUND CLOSURE | | | | Hospital Admitting | [address] | | | | | Desk Located on the | [phone] | | | | | 9th floor | | | | | | [place], [place] | | | | | | [address] | | | +--------+---------+ + + + [...] Urbina MD PCP: Mary Vazquez PA-C Service: [facility] Neurosurgery Diagnoses Principal Final Diagnosis: Wound dehiscence. [...] AM Discharging Attending: MD Marni Beck PA-C [facility] [address] [address] [place] [address] documented in t his encounter Medications at [...] Vazquez PA-C Admission Date: 07/10/2018 GLORIA BELL, [id number] Hospital Day #3 PROCEDURES: Dr. White (ENT) [...] ANGIE FRENCH PA-C Otolaryngology-Head and Neck Surgery [facility] [place] Pager [phone] arni Manning PA-C - 07/12/2018 1:11 PM [...] 06/25 equal b/l No Pronator Drift No [id number] dysmetria nor ataxia SILT Incision c/d/i. Nylons [...] defect at bedside (suture) She presents to [facility] with wound dehiscence and exposed hardware now [...] 24-28hr. Marni Manning PA-C Neurological Surgery Pg [phone] Steven Piña PA-C - 07/12/2018 8:07 AM PDTFormatting of this note might be different from the reba naik. DOS: 07/12/2018 Head and Neck Surgery Inpatient Daily Progress Note: Primary Care Provider: Mary Vazquez PA-C Admission Date: 07/10/2018 GLORIA BELL, [id number] Hospital Day #2 PROCEDURES: Dr. White (ENT) [...] ANGIE FRENCH PA-C Otolaryngology-Head and Neck Surgery [facility] [place] Pager [phone] ossVickie MD, MPH - 07/11/2018 3:52 PM [...] Please contact the Neurosurgery resident on-call pager [phone] with questions or concerns. Vickie Estrada M.D., M.P.H. R2 Resident Physician Neurological Surgery Pager: [phone] signed by Vickie Estrada MD,MPH at 07/11/2018 [...] of the implant. Ata White MD MW/MODL /[id number] signed by Ata White MD at 07/11/2018 3:28 PM PDTAngie Moreno PA-C - 07/11/2018 9:30 AM PDT DOS: 07/11/2018 Head and Neck Surgery Inpatient Daily Progress Note: Primary Care Provider: Mary Vazquez PA-C Admission Date: 07/10/2018 GLORIA BELL, [id number] Hospital Day #1 SUBJECTIVE INTERVAL EVENTS: To [...] ANGIE FRENCH PA-C Otolaryngology-Head and Neck Surgery [facility] Pager [phone] Nettie Knowles PA - 07/11/2018 6:39 AM [...] RLB Gram Stain...........: Gram smear performed at [facility]. Culture: Final Report: No growth after 3 days. Final Report 04/29/2008 Corrected CSF Culture Source...............: Cerebrospinal Fluid RLB Gram Stain...........: Gram smear performed at [facility]. Culture: Rare Methicillin resistant Staphylococcus aureus Final ID MRSA Cefazolin R Clindamycin S Erythromycin R Oxacillin R Penicillin R Tetracycline S Trimeth/Sulfa S Vancomycin S Final Report Comment: Test performed at [facility]. 03/07/2008 Corrected CSF Culture Source...............: Cerebrospinal Fluid RLB Gram Stain...........: Gram smear performed at [facility]. Culture: Final Report: No growth after 3 days. Final Report Comment: Test performed at [facility]. 03/03/2008 Corrected CSF Culture Source...............: Cerebrospinal Fluid RLB Gram Stain...........: Gram smear performed at [facility]. Culture: Final Report: No growth after [...] Vancomycin S Final Report Resulted: 03/05/08 RLB ([facility]) [facility] [place] [address] [place] [address] Comment: Test performed at [facility]. CULTURE RESULT Date Value Ref Range [...] defect at bedside (suture) She presents to [facility] with wound dehiscence and exposed hardware. Plan for surgery today vi a explant of cranioplasty and primary wound closure by Dr White. PLAN: OR today for cranioplasty explant and primary wound closure. Anticipate return to 10K post op. NPO. Resume lisinopril post op. Continue atorvastatin, spironolactone, metoprolol. Nicotine patch. Post operative wound care per ENT. ANSON MULLINS [facility] [address] [place] [address] Drive [address] [address] Doug Dhaliwal M D - 07/10/2018 3:38 [...] Please contact the Neurosurgery resident on-call pager [phone] with questions or concerns. Vickie Estrada M.D., M.P.H. R2 Resident Physician Neurological Surgery Pager: [phone] signed by Doug Aponte MD at 07/10/2018 8:01 PM Anita cintron in this encounter Procedure Notes Adolfo Urbina MD - 07/11/2018 3:24 PM PDTAssociated Order(s): OPERATION RECORDDate of Serv ice: 07/11/2018 Attending Surgeon: Adolfo Urbina MD Finisher Merchant Products(s): Kari Cavazos MD Preoperative Diagnoses: 1. Wound [...] imaging. Initial Surgical Contact: Neurosurgery at pager [phone]. Indications For Procedure: Please see [facility] for full details, but briefly, Marisela [...] desiring cranioplasty for cosmetic reasons. We did dependency counselor her that she may require a [...] rought back to the operating room on [facility]. She was intubated without difficult [...] correct x2. MD Adolfo Emmanuel MD JLG/MODL /[id number] aAta michael MD - 07/12/19 19 2:21 [...] up, woken up, extubated and sent to [facility] recovery room. Ata White MD MW/MODL /[id number] signed by Ata White MD at 07/11/2018 3:28 PM [facility] Consult Notes Doug [...] above Past Histories Allergies: Allergies Allergen Reactions Merced Tar Hives Betadine [Povidone-Iodine (With Soap)] Rash Cipro [Ciprofloxacin] Nausea and Vomiting Codeine Hcl Nausea and Vomiting Sulfa (Sulfonamide Antibiotics) Erythema Past Surgical History Procedure Laterality Date Partial thyroidectomy Right Hysterectomy Bladder suspension 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 Client Manager shunt Tympanoplasty Right 1987 Lumpectomy of left breast 1979 Coronary stent placement 12/28/2014 status post stent placement in the mid LAD Removal of vp & general counsel shunt Cholecystectomy Past Medical History: Diagnosis Date Abnormal LFTs (liver function tests) CAD in [place] artery s/p NSTEMI 12/27/2014; status post stent [...] for input(s): FIO2, PH, PCO2, PO2, HCO3, EZNIS5UWY, D4GIDMEC, Y7HNVKGGD in the l ast 720 hours. CSF [...] RLB Gram Stain...........: Gram smear performed at [facility]. Culture: Final Report: No growth after 3 days. Final Report 04/29/2008 CSF Culture Source...............: Cerebrospinal Fluid RLB Gram Stain...........: Gram smear performed at [facility]. Culture: Rare Methicillin resistant Staphylococcus aureus [...] primary closure Doug Aponte MD Neurosurgery PGY2 [id number] Risk and Morbidity Patient Risk Modifiers - Including but not limited to. Age: 68 y.o. female DNR: Prior Transfer status/urgency : From Outside Hospital : From [facility] ER: Symptom Onset: Less than 12 hours (07/10/18 1) Patient Acuity: 3 (07/10/18920) Destination: Acute (07/10/18920) Palliative/end of Life Care :Not applicable First GCS and if Mechanically Ventilated/Intubated: Best Motor Response: 6-->(M6) obeys commands (07/10/18920) Best Verbal Response: 5-->(V5) oriented (07/10/18920) Best Eye Response: 4-->(E4) spontaneous (07/10/18920) Score ([place] Coma Scale): 15 (07/10/18920) Last GCS and if Mechanically Ventilated/Intubation: Best Motor Response: 6-->(M6) obeys commands (07/10/18920) Best Verbal Response: 5-->(V5) oriented (07/10/18920) Best Eye Response: 4-->(E4) spontaneous (07/10/18920) Score ([place] Coma Scale): 15 (07/10/18920) Comatose State: If GCS<9 Then patient by definition is in a comatose state Score ([place] Coma Scale) Min: 15 Max: 15 Loss [...] weeks. Continuous tobacco abuse Coronary arteriosclerosis in [place] artery 03/06/2015 History of non-ST elevation myocardial [...] additions o r exceptions. Adolfo Urbina MD Electronic Science Teacher - Skull base and Cerebrovascular Neurosurgery Department of Neurological ImposerElectronic Science Teacher - Interventional Neuroradiology Alex Ochoa Department of Interventional Radiology [facility] [place] Mel Blanca MD - 07/10/2018 9:34 AM [...] ruptured aneurysm (HCC) 2007 Goiter CAD in [place] artery s/p NSTEMI 12/27/2014; status post stent placement in the mid LAD Abnormal LFTs (liver function tests) MRSA (methicillin resistant staph aureus) culture positive post cariotomy for SAH Hemorrhagic stroke (HCC) 2007 aneurysm PONV (postoperative nausea and vomiting) Past Surgical History Procedure Date Partial thyroidectomy Hysterectomy Bladder suspension 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 Client Manager shunt Tympanoplasty 1987 Lumpectomy of left breast 1979 Coronary stent placement 12/28/2014 status post stent placement in the mid LAD Removal of vp & general counsel shunt Cholecystectomy Social History Tobacco Use Smoking status: Current Every Day Smoker Packs/day: 1.00 Years: 50.00 Pack years: 50.00 Types: Cigarettes Smokeless tobacco: Never Used Tobacco comment: Substance Use Topics Alcohol use: No Alcohol/week: 0.0 oz Drug use: No Family History Problem Relation Additional Family History Mother dementia Cancer Father brain Cancer Brother lung Allergies Allergen Reactions Merced Tar Hives Betadine [Povidone-Iodine (With Soap)] Rash [...] Resident Physician, PGY1 Otolaryngology, H&N Surgery Pager [phone] Associated attestation - Ata White MD - [...] weeks. Continuous tobacco abuse Coronary arteriosclerosis in [place] artery 03/06/2015 History of non-ST elevation myocardial [...] ruptured aneurysm (HCC) 2007 Goiter CAD in [place] artery s/p NSTEMI 12/27/2014; status post stent placement in the mid LAD Abnormal LFTs (liver function tests) MRSA (methicillin resistant staph aureus) culture positive post cariotomy for SAH Hemorrhagic stroke ([facility]) 2007 aneurysm PONV (postoperative nausea and vomiting) Past Surgical History Procedure Date Partial thyroidectomy Hysterectomy Bladder suspension 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 Client Manager shunt Tympanoplasty 1987 Lumpectomy of left breast 1979 Coronary stent placement 12/28/2014 status post stent placement in the mid LAD Removal of vp & general counsel shunt Cholecystectomy Medications Prior to Admission Medications [...] daily. Facility-Administered Medications: None Allergies Allergen Reactions Merced Tar Hives Betadine [Povidone-Iodine (With Soap)] Rash [...] Discussed this case with neurosurgery resid ent patient registration specialist and they will accept to their service. Given no fevers and hemodynamically stabl e, no indication for empiric antibiotics at this point. Spoke with ENT patient registration specialist who did the procedure last month, [...] co-wrote the ED Provider Note using the TDX share function. I agree with the documentation [...] RN - 07/13/2018 1:08 AM PDTNursing Handoff [facility] IP NURSE HANDOFF: Nesbitt hospital course [...] d aneurysm (HCC) 2007, Goiter, CAD in [place] artery s/p NSTEMI 12/27/2014; status post stent [...] RN - 07/12/2018 5:14 PM PDTNursing Handoff [facility] IP NURSE HANDOFF: Nesbitt hospital course [...] d aneurysm (HCC) 2007, Goiter, CAD in [place] artery s/p NSTEMI 12/27/2014; status post stent [...] coverage of new implant. She presents to [facility] today with exposed synthetic bone flap and [...] pain medication information: none Functional Epidural: N/A FABRIC PATTERN GRADER: N/A Respiratory: RR: 15 , O2 Sat: 92 % , O2 Delivery: Nasal cannula Breath Sounds: Ex DARIEN: LLL: RUL: RLL: MELISSA No Comment: persistent cough and has COPD Cardiac: BP: 106/47 HR: 71 GI: Nausea/Vomiting Status: Yes- Signs/Symptoms: intermittent nausea Interventions: antiemetic given Assessment: relief of signs/symptoms Comments: resolved : Last void: preop Contact Name: Juan BOYKIN Contact Number: [phone] Family contacted: Yes Comment: no answer Belongings: [...] 10 ml Disposition: PACU then acute care Bneavides: never placed Diet: ADAT to regular DVT prophylaxis: contraindicated until POD#2 Antibiotic Plan: final duration TBD Glycemic control: subcutaneous sliding scale Dressing care: RN to remove dressing on post-op day # 1 Activity restrictions: HOB > 30 degrees Imaging: no post op imaging Initial surgical contact: neurosurgery at pager [phone] Patient Lines/Drains/Airways Status Active Lines, Drains and [...] Patient Daily Goal: get rest (07/11/18 0005) [facility] IP NURSE HANDOFF: Nesbitt hospital course [...] shanell team 05/09, at which time Dr White/Terecne performed a rotation advancement scalp flap for coverage of new implant. She presents to [facility] today with exposed synthetic bone flap and [...] Daily Goal: prepare for surgery tomorrow (07/10/18 2588) [facility] IP NURSE HANDOFF: Nesbitt hospital course [...] coverage of new implant. She presents to [facility] today with exposed synthetic bone flap and [...] lan of Care - Darterryleonides Ayush serra, ALTERATION HAND - 07/10/2018 4:51 PM PDTFormatting of this [...] Attending | | Surgeon: Adolfo Urbina MD Finisher Merchant Products(s): Kari Cavazos MD | | Preoperative Diagnoses: [...] Surgical Contact: Neurosurgery | | at pager [phone].Indications For Procedure: Please see [facility] for full details, but | | briefly, [...] desiring cranioplasty for cosmetic reasons. We did dependency counselor her that | | she may [...] brought back to the operating room on [facility]. She was | | intubated without difficulty [...] 07/11/2018 15:04:23DT: 07/11/2018 | | 15:24:02Jo #: [id number] | | | |Indications For Procedure: Please [...] plasty for cosmetic reasons. We did | |dependency counselor her that she may require a [...] rought back to the operating room on [facility]. She was intubated without difficult [...] |JLG/MODL | | | | | | /[id number] | + + CAPILLARY BLOOD GLUCOSE (NO [...] | + + + + + | [facility] | [address] | [place], [place] | | | [facility] | [address] | [address] | | | TESTS | | | [...] | MELI/SWAPNILLDD: 07/11/2018 14:09:26DT: 07/11/2018 14:21:09Job #: [id number] | | | | | |Ata White MD | |CHANDRIAK/NGUYEN | | | | | | /[id number] | + + CULTURE, FUNGAL EXCEPT BLOOD, [...] + | [facility] | [address] | [place] [address] | | | [place] | | | [...] + | [facility] | [address] | [place] [address] | | | [place] | | | | + + + [...] | + + + + + | [facility] | [address] | [place] [address] | | | [facility] | | | | + + + [...] [facility] | [address] | [place] [address] | | | SERVICES, CORE | PARK [...] | + + + + + | [facility] | [address] | [place] [address] | | | SERVICES, CORE | RAMSES [...] [facility] | [address] | [place] [address] | | | SERVICES, CORE | PARK [...] [facility]HELLE [facility] | [address] | [place] [address] | | | RYAN ORNELAS | PARK [...] | + + + + + | [facility] | [address] | [place] [address] | | | RYAN ORNELAS | RAMSES [...] | | | LABORATORY | | | CONGOLESE | | | SERVICES, | | | [...] MDRD equation recommended by the National | [facility] | | Kidney Disease Education Program. [...] | + + + + + | [facility] | [address] | [place] [address] | | | SERVICES, CORE | RAMSES [...]
--- OUTSIDE RECORDS SUMMARY | ~2019-10-16 | XMS | Encounter Summary ---
Demographics + + + | Address | [address] | | | [place] [address] | + + + | Home Phone | | + + + | Preferred Language | Unknown | + + + | Marital Status | | + + + | Oriental Orthodox Affiliation | MET | + + [...] Team Providers + +------+ + | Care Caddy Packer Name | Role | Phone | + +------+ + | Mary Vazquez PA-C | PCP | | + +------+ + Encounter Details +--------+ + + + + | Date | Type | Department | Care Team | Description | +--------+ + + + + | 08/03/ | Procedure | [address] Op [address] | | | | 2019 | Pass | [address] | | | | | | [address] [facility] | | | | | | Hospital Admitting | | | | | | Desk Located on the | | | | | | 9th floor | | | | | | [place], [place] | | | | | | [address] | | | +--------+ + + + [...]
--- OUTSIDE RECORDS SUMMARY | ~2019-10-16 | XMS | Encounter Summary ---
Demographics + + + | Address | [address] | | | [place] [address] | + + + | Home Phone | | + + + | Preferred Language | Unknown | + + + | Marital Status | | + + + | Congregational Affiliation | MET | + + + [...] Team Providers + +------+ + | Care Scraper Burrer Name | Role | Phone | + [...] [address] | JORGE LUIS Hannon [address] [facility] | | | | | [facility] | [facility] | | | | | [facility], | [place], [place] | | | | | [address] | [address] | | | | | floor [place], [place] | [phone] | | | | | [address] | | | | | | [phone] | | | +--------+ + + + [...] 07/14/2018 8:35 AM PDTPatient was [facility] explant [...]
--- OUTSIDE RECORDS SUMMARY | ~2019-10-16 | XMS | Encounter Summary ---
Demographics + + + | Address | [address] | | | [place] [address] | + + + | Home Phone | | + + + | Preferred Language | Unknown | + + + | Marital Status | | + + + | Uatsdin Affiliation | Unknown | + + + | Race | White | + + + | Ethnic Group | Not or | + + + Author + + + | Author | [facility] | | | and [place] | + + + | Organization | [facility] | | | [...] Team Providers + +------+ + | Care Jeweler Apprentice Name | Role | Phone | + +------+ + PCP | Unavailable | + +------+ + Encounter Details +--------+ + + + + | Date | Type | Department | Care Team | Description | +--------+ + + + + | 07/01/ | Hospital | [facility] | | | | 1991 | Encounter | [facility] | | | | | [facility] [address] | | | | | | [place] | | | | | | [address] | | | | | | [phone] | | | +--------+ + + + [...]
--- OUTSIDE RECORDS SUMMARY | ~2019-10-16 | XMS | Encounter Summary ---
Demographics + + + | Address | [address] | | | [place] [address] | + + + | Home Phone [...] + + + | Author | [facility] | + + + | Organization | [facility] | + + + | [...] Team Providers + +------+ + | Care Amusement Equipment Operator Name | Role | Phone | [...] | | | | | | | [address] | | | | | | | [id number] | | | | | | | [facility] | | | | | | | [place], | | | | | | | [place] [address] | | | | | | | Phone: | | | | | | | [phone] | +--------+--------+ + + + + Encounter Details +--------+ + + + + | Date | Type | Department | Care Team | Description | +--------+ + + + + | 04/11/ | Hospital | [facility] [address] | Paramjit Huber MD | | | 2008 - | Encounter | [address] | [address] | | | | | [id number] [facility] | [place], [place] | | | 04/13/ | | HOSPITAL [place], | [address] | | | 2008 | | [place] [address] | [phone] | | | | | [phone] | | | +--------+ + + + [...] Additional Diagnoses: None Principal Procedure: DIRECTOR OF MANUFACTURING OPERATIONS Shunt Placement Reason for Admission, Significant Findings, Treatment, and Complications Brief Hospital Course: Cielo Bell is a 58 y.o. female who was admitted for the aforementioned operation. (Ple ase see the operative report for full details of the procedure). Post-operatively the patien vijay was transferred to the cooper and did well. On POD 1, the patient was seen by physical plant employee apy and then by occupational therapy to [...] call and ask for the Neurosurgery resident nurse's companion if you have any of the following: [...] follow-up appointment with Dr. Huber at the [facility] on the 8th floor of the [facility]: Please call [phone] to make or confirm your appointment for [...] extremitiy flexors and extensors as well as nurse assistant and intrinsic muscles of the hand, 5/5 [...] Hydrocephalus Additional Diagnoses: Principal Procedure: DIRECTOR OF MANUFACTURING OPERATIONS Shunt Placement Reason for Admission, Significant Findings, Treatment, and Complications Brief Hospital Course: Cielo Bell is a 58 y.o. female who was admitted for the aforementioned operation. (Ple ase see the operative report for full details of the procedure). Post-operatively the patien t was transferred to the cooper and did well. On POD 1, the patient was seen by physical plant employee apy and then by occupational therapy to [...] call and ask for the Neurosurgery resident nurse's companion if you have any of the following: [...] follow-up appointment with Dr. Huber at the [facility] on the 8th floor of the [facility]: Please call [phone] to make or confirm your appointment for [...] extremitiy flexors and extensors as well as nurse assistant and intrinsic muscles of the hand, 5/5 [...] AM Discharging Attending: MD CHOCO Woods MD [address] [address] [address] INPATIENT NURSE ORDER FOR DISCHARGE AND INTERDISCIPLINARY [...] Mode of Transportation: Car Accompanied by: Family/Responsible [employer] Discharge Nurse: Idgna Juan Date: 04/13/2008 Discharge Time: 3:17 PM [...] extremitiy flexors and extensors as well as nurse assistant and intrinsic muscles of the hand, 5/5 [...] extremitiy flexors and extensors as well as nurse assistant and intrinsic muscles of the hand, 3/5 [...] y.o. female status post right DIRECTOR OF MANUFACTURING OPERATIONS shunt this morning for communica ting hydrocephalus. The patient is currently in Good condition. There were not abnormal lab values, and treatment at this time will consist of routine post-operative care.. The [facility] for this patient for patient to [...] She was made NPO at midnight w [facility]. She had some difficulty sleeping last night. [...] extremitiy flexors and extensors as well as nurse assistant and intrinsic muscles of the hand, 5/5 [...] Diagnosis: same Procedure Performed: Right DIRECTOR OF MANUFACTURING OPERATIONS shunt Estimated Blood Loss: 25 ml Fluids: crystalloid Specimens: none Complications: none Drains: none Disposition: PACU Findings: Csf under moderate pressure ther, Faculty - 009 12:00 AM PSTAssociated Order(s): ANESTHESIA/SEDATION; ANESTHESIA/SEDATION To Prieto MD - 04/12/2008 12:00 AM PSTAssociated Order(s): OPERATION RECORD; OPERATION RECORD [id number] [place] [id number] Date: 04/12/2008 Attending Surgeon: Paramjit Huber M.D. Aerospace Project Manager(s): To Prieto M.D. Kamari Cha M.D., Ph.D. [...] to the PACU in stable condition. Dr. Huber was present for the critical portions of the surgery. To Prieto M.D. Paramjit Huber M.D. HS / ELINA [id number] / [id number] / [id number] / Alyssa Rosen - 04/12/2008 12:00 AM PSTAssociated Order(s): ANESTHESIA/SEDATION; ANESTHESIA/SEDATION Paramjit Huber MD - 04/12/2008 12:00 AM PSTAssociated Order(s): TEACHING PHYSICIAN; TEACHING PHYSICIAN 01 [id number] RAY CASTRO [id number] Date: 04/12/2008 Attending Surgeon: Paramjit Huber M.D. Aerospace Project Manager(s): Kamari Cha M.D., Ph.D. To Prieto M.D. [...] Dr. To Prieto. Paramjit Huber M.D. / [id number] / [id number] / [id number] / documented in this enco unter Miscellaneous [...] Procedure / Date: 04-12-08 Right DIRECTOR OF MANUFACTURING OPERATIONS shunt Activity Orders: ambulate Precautions: falls, isolation [...] are very careful" Home setting: house in [facility] One or two level home: one Steps [...] this therapist and with . Requir ed DIRECTOR OF CAREER RESOURCES only due to mild unsteadiness. No LOB. [...] Assessment: 58 yo f s/p DIRECTOR OF MANUFACTURING OPERATIONS shunt presents today close to if not better than her baseline, per her husbands report. She was independent with transfers out of bed and just needed DIRECTOR OF CAREER RESOURCES f or ambulating. She is unsteady with [...] | | + +---------+ + + | [facility] DEPARTMENT OF | | | | [...] view image for the detailed interpretation from [employer]. | CARDIOLOGY | | | | + + + + + + + + | Performing | Address | City/State/Zipcode | Phone Number | | Organization | | | | + + + + + | [facility] | [address] [facility] | [place], [place] | | | CARDIOLOGY | [address] | [address] | | + + + + + | [facility] | [address] [address] | [place], [place] | | | CARDIOLOGY | [facility] | [address] | | + + + + + [...] Performed At | + + + | [id number] | | | [id number] | | | [id number] RAY CASTRO [id number] | | | Date: 04/12/2008 Attending Surgeon: | | | Paramjit Huber M.D. Aerospace Project Manager(s): | | | To Prieto M.D. | [...] | | | Paramjit Huber M.D. / [id number] / [id number] / [id number] / D: | | | 04/15/2008 | | + + + + + | Procedure Note | + + | To Prieto MD - 04/12/2008 12:00 AM PST [id number] | | [id number] RAY CASTRO | | [id number] Date: 04/12/2008 Attending Surgeon: | | Paramjit Huber M.D. Aerospace Project Manager(s): To Prieto M.D. | | Kamari Cha [...] To Prieto M.D. Paramjit Huber M.D. / [id number] / [id number] / [id number] | | / T: 04/15/2008 | |endotracheal [...] | | | |HS / HS | |[id number] / [id number] / [id number] / | | | | | | [...] Performed At | + + + | [id number] | | | [id number] | | | RAY [place]STRO [id number] | | | Date: 04/12/2008 Attending Surgeon: | | | Paramjit Huber M.D. Aerospace Project Manager(s): | | | Kamari Cha M.D., Ph.D. [...] M.D. AD / HS | | | [id number] / [id number] / [id number] / | | | | | + + + + + | Procedure Note | + + | Paramjit Huber MD - 04/12/2008 12:00 AM [facility] [id number] | | [id number] RAY CASTRO | | [id number] Date: 04/12/2008 Attending Surgeon: Paramjit | | Narinder Huber Aerospace Project Manager(s): Kamari Cha M.D., Ph.D. | | To [...] Paramjit Huber, | | Narinder KAUFMAN / [id number] / [id number] / [id number] / T: 04/12/2008 | | To Prieto [...] | | | | |AD / | |[id number] / [id number] / [id number] / | | | | | | [...] | | | DAILY, First dose on [facility] 04/11/08 | | AM PST | | [...]
--- OUTSIDE RECORDS SUMMARY | ~2019-10-16 | XMS | Clinical Summary ---
Demographics + + + | Address | [address] | | | [place] [address] | + + + | Home Phone [...] Team Providers + +------+ + | Care Locomotive Firer Name | Role | Phone | + +------+ + | Mary Vazquez PA-C | PCP | | + +------+ + Source Comments MICHELLE is fully live on both EpicCare Ambulatory and EpicCare InPatient.Formerly [facility] Allergies + + + + + + [...] + + + + + + | [place] Tar | Hives | High | 06/07/19 [...] | | did not travel here to [facility] with it -stable on 4L NC-RT and [...] | vancomycin and ZosynAnticipate ID consult in [facility] | | intraoperative cultures- 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 | | on 10/23/2015 by Cecile, | | | | | | 550 / | | MD Paramjit at [facility] | | | | | | /[id number] | | REV LOC | | | | | | 16 | + +------+--------+ +--------+--------+--------+ | Cover Emmanuel Hole .5mm 17mm | | Right: | [employer] | | | 421.52 | | Craniomaxillofacial Titanium | | Head | | | | 7 / / | | Low Profile Nonsterile - | | | | | | | | [id number]: Qty: 2 on | | | | | | | | 10/23/2015 by Paramjit Huber | | | | | | | | at [facility] INPATIENT REV LOC | | | | | | | + +------+--------+ +--------+--------+--------+ | Screw Bone 4mm 1.55mm 2.55mm | | Right: | [employer] | | | 04.503 | | Matrixneuro | | Head | | | | .104.0 | | Craniomaxillofacial Titanium | | | | | | 1 / / | | Self Drill Nonsterile - | | | | | | | | [id number]: Qty: 2 on | | | | | | | | 10/23/2015 by Paramjit Huber, | | | | | | | | at [facility] INPATIENT REV LOC | | | | | | | + +------+--------+ +--------+--------+--------+ | Plate Bone 18mmx.5mm 2y Low | | Right: | [facility] | | | 421.51 | | Profile Craniomaxillofacial | | Head | | | | 6 / / | | Titanium 6 Hole Nonsterile - | | | | | | | | [id number]: Qty: 1 on | | | | | | | | 10/23/2015 by Paramjit Huber, | | | | | | | | at [facility] INPATIENT REV LOC | | | | | | | + +------+--------+ +--------+--------+--------+ | Peek Psi ImplantImplanted: | | Right: | [facility] | | | [id number]. | | Qty: 1 on 05/08/2018 by | | Head | | | | 420 / | | Paramjit Huber MD at [facility] | | | | | | /[id number] | | INPATIENT REV LOC | | | | | | 06 | + +------+--------+ +--------+--------+--------+ | Cement Bone Cranios 5ml | | Right: | [employer] | | 09/17/ | 615.05 | | Reinforced Fast Set Putty | | Head | | | 2020 | .01S / | | Sterile - [id number]: | | | | | | | | Qty: 1 on 05/08/2018 by | | | | | | /[id number] | | Paramjit Huber MD at [facility] | | | | | | 1294 | | INPATIENT REV LOC | | | | | | | + +------+--------+ +--------+--------+--------+ | Screw Bone 4mm 1.55mm 2.55mm | | Right: | [employer] | | | 04.503 | | Matrixneuro | | Head | | | | .104.0 | | Craniomaxillofacial Titanium | | | | | | 5 / / | | Self Drill Nonsterile - | | | | | | | | [id number]: Qty: 4 on | | | | | | | | 05/08/2018 by Paramjit Huber, | | | | | | | | at [facility] INPATIENT REV LOC | | | | | | | + +------+--------+ +--------+--------+--------+ | Plate Bone 12mmx.5mm Straight | | Right: | [employer] | | | 421.50 | | Craniomaxillofacial Titanium | | Head | | | | 2 / / | | 2 [place] Space Low | | | | | | | | Profile - [id number]: | | | | | | | | Qty: 3 on 05/08/2018 by | | | | | | | | Paramjit Huber MD at [facility] | | | | [...] | | /[id number] | | MD at [facility] INPATIENT REV LOC | | | | [...] | | | | | | | [id number]: Qty: 9 on | | | | | | | | 08/03/2018 by Casey Hewitt, | | | | | | | | at [facility] INPATIENT REV LOC | | | | | | | + +------+--------+ +--------+--------+--------+ | Probe Doppler 17.4cm Flow | | Head | COOK | | 04/20/ | [id number] | | Safe Implantable | | | MEDICAL | | 2021 | / | | Microvascular Anastomoses | | | | | | /[id number] | | Cuff 20mhz Standard Sterile - | | | | | | 82 | | [id number]: Qty: 1 | | | | | | | | on 08/03/2018 by Ata White | | | | | | | | at [facility] INPATIENT REV LOC | | | | | | | + +------+--------+ +--------+--------+--------+ | Dressing Biological [id number] | | Right: | [employer] | | 05/21/ | [id number] | | 4x10in Bovine Collagen | | Head | LIFESCIENCE | | 2020 | 1 / | | Glycosaminoglycan | | | S | | | /[id number] | | Polysiloxane Adherent Bilayer | | | | | | 47 | | Matrix - [id number]: | | | | | | | | Qty: 1 on 09/19/2018 by Christopher | | | | | | | | MD Ata at [facility] INPATIENT | | | | | | [...] 4mm 1.55mm 2.55mm | | Right: | [employer] | | | 04.503 | | Matrixneuro | | Head | | | | .104.0 | | Craniomaxillofacial Titanium | | | | | | 5 / / | | Self Drill Nonsterile - | | | | | | | | [id number]: Qty: 1 on | | | | | | | | 05/08/2018 by Paramjit Huber, | | | | | | | | at [facility] INPATIENT REV LOC | | | | [...] | | | | | | | [id number]: Marcelina, | | | | | | | | MD Casey (Quantity not on | | | | | | | | file)Explanted: Qty: 1 on | | | | | | | | 08/03/2018 by Casey Hewitt, | | | | | | | | at [facility] INPATIENT REV LOC | | | | [...] + +--------+ | MEDICARE | MEDICA | [id number] | | [phone] | [address] | Medica | | | RE A & | | 014-Pr | 1 | [phone] | re | | | B | | esent | | [place], [place] | | | | | | | | [address] | | + +--------+ +--------+ + +--------+ | [employer] [place] | MUTUAL | [id number] | | [phone] | [phone] | Indemn | | MEDICARE SUPPL | OF | | 018-Pr | 0 | [employer] OF | ity | | | [place] | | esent | | [address] [address] | | | | MEDICA | | | | [place] | | | | RE | | | | [phone] | | | | SUPPL | | [...] | 1950 | [phone] | [place] [address] | | | surjit | | | [...]
--- OUTSIDE RECORDS SUMMARY | ~2019-10-16 | XMS | Encounter Summary ---
Demographics + + + | Address | [address] | | | [place] [address] | + + + | Home Phone | | + + + | Preferred Language | Unknown | + + + | Marital Status | | + + + | Jainism Affiliation | MET | + + + [...] Team Providers + +------+ + | Care Jet Ski Mechanic Name | Role | Phone | + +------+ + | No Pcp Per Patient | PCP | Unavailable | + +------+ + Encounter Details +--------+ + + + + | Date | Type | Department | Care Team | Description | +--------+ + + + + | 01/11/ | Documentati | Neurosurgery at | Paramjit Huber MD | | | 2018 | on | [facility] [address] | [address] | | | | | Ave [facility] | [place], [place] | | | | | Health and Healing, | [address] | | | | | [facility] | [phone] | | | | | floor [place], [place] | | | | | | [address] | | | | | | [phone] | | | +--------+ + + + [...]
--- OUTSIDE RECORDS SUMMARY | ~2019-10-16 | XMS | Encounter Summary ---
Demographics + + + | Address | [address] | | | [place] [address] | + + + | Home Phone | | + + + | Preferred Language | Unknown | + + + | Marital Status | | + + + | Restorationist Affiliation | MET | + + + [...] Team Providers + +------+ + | Care Plugman Name | Role | Phone | + +------+ + | Mary Vazquez PA-C | PCP | | + +------+ + Reason for Visit +--------+--------+ + | Reason | Onset | Comments | | | Date | | +--------+--------+ + | Other | 10/16/ | Augusto son called concerned about the plastic film coming | | | 2019 | off the head wound please call him | +--------+--------+ + Encounter Details +--------+ + + + + | Date | Type | Department | Care Team | Description | +--------+ + + + + | 10/16/ | Telephone | Otolaryngology | Ata White MD | Other (Augusto frazier | | 2019 | | Head and Neck | [address] | called concerned | | | | Surgery Services at | [facility], | about the plastic | | | | [facility] [address] | [place] [address] | film coming off the | | | | [facility] for | [phone] | head wound please | | | | Health and Healing, | | call him) | | | | [address] | | | | | | [place], [place] | | | | | | [address] | | | | | | [phone] | | | +--------+ + + + [...] Telephone Encounter - Ml Hess MA - 10/17/2018 12:12 PM PDTDrKimberli thornton eli patient. Closing note P M PDTTelephone Encounter - Ema Thomas - 10/17/2018 10:13 AM PDT From: Augusto Bell <[email or web address]> Sent: Tuesday, October 16, 2018, 8:59 AM To: [email or web address] Subject: Cielo Nurard The top pic is from a couple days ago and the bottom pic is from her last office visit with you. Now the plastic has came completely off and the wound is exposed. I am not sure if oni t was the plan all along or not? elephone Encounter - Rosalind Dexter MA - 10/16/2018 9:04 AM PDTplease call him the plastic film over the wound came off concerned Forward to Dr. White / and Dr. Martinez to advise documented in this encounter Plan of Treatment Not on filedocumented as of this encounter Visit Diagnoses Not on filedocumented in this encounter"
--- OUTSIDE RECORDS SUMMARY | ~2019-10-16 | XMS | Encounter Summary ---
Demographics + + + | Address | [address] | | | [place] [address] | + + + | Home Phone | | + + + | Preferred Language | Unknown | + + + | Marital Status | | + + + | Spiritism Affiliation | MET | + + + [...] Team Providers + +------+ + | Care Signal Supervisor Name | Role | Phone | [...] Closed | | Neurological | Diagnoses | Rita, Kari | Cecile, | | | | Surgery | Other | MD Dora | MD Paramjit | | | | | acquired | [address] | [address] | | | | | deformity of | [address] | Ave | | | | | head | Rd | [place], [place] | | | | | Infection | [place], [place] | [address] | | | | | and | [address] | Phone: | | | | | inflammatory | Phone: | [phone] | | | | | reaction | [phone] | Fax: | | | | | due to other | Fax: | [phone] | | | | | internal | [phone] | | | | | | prosthetic [...] | | | | | | | PROJECT ESTIMATOR | | | | | | | AL REPLACE | | | | | | | SKULL | | | | | | | PLATE/FLAP | | | | | | | AL REPAIR | | | | | | | SKULL | | | | | | | DEFECT,UP TO | | | | | | | 5CM AL | | | | | | | REPAIR SKULL | | | | | | | DEFECT,>5CM | | | +--------+--------+ + + + + Encounter Details +--------+ + + + + | Date | Type | Department | Care Team | Description | +--------+ + + + + | 02/24/ | Welder Repair | Neurosurgery at | Kari Salinas MD | Acquired skull | | 2019 | | [facility] [address] | [address] | defect (Primary Dx) | | | | [facility] for | Nora Funes [place], | | | | | Health and Healing, | [place] [address] | | | | | [facility] | [phone] | | | | | [place], [place] | | | | | | [address] | | | | | | [phone] | | | +--------+ + + + [...] this encounter Miscellaneous Notes Telephone Encounter - Kari Salinas MD - 02/24/2018 2:36 PM PSTConsult to [place] for right syn thetic cranioplasty with ENT flap 2: 38 PM PSTdocumented in this encounter Plan of Treatment Not on filedocumented as of this encounter Visit Diagnoses + + | Diagnosis | + + | 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
--- OUTSIDE RECORDS SUMMARY | ~2019-10-16 | XMS | Clinical Summary ---
Demographics + + + | Address | [address] | | | [place] [address] | + + + | Home Phone | | + + + | Preferred Language | Unknown | + + + | Marital Status | | + + + | Catholic Affiliation | Unknown | + + + | Race | White | + + + | Ethnic Group | Not or | + + + Author + + + | Author | [facility] | | | and [place] | + + + | Organization | [facility] | [...] Team Providers + +------+ + | Care Hospital Food Service Worker Name | Role | Phone | [...] + + + + + + | [place] | Hives | High | 06/07/19 | | | | | | 15 | | + + + + + + | [place] Tar | Hives | | 12/28/19 | [...] + + | 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 | | Normal LM; normal LCX; 20-30% RCA. Elevated EDP. Echo.12/28/14. | | LVEF.54%Overview: anterior GA | | Echo.12/28/14. LVEF.54% | |Overview: | |anterior GA | + + + + + | [...] / Lot | + +-------+-------+ +--------+--------+--------+ | [employer] | Stent | N/A: | [place] | | 12/21/ | [id number] | | Coronary Stent 2.50mm X | | Heart | SCIENTIFIC | | 2017 | [id number] | | 20mmImplanted: Qty: 1 on | | | [employer] | | | 50 / | | 12/28/2014 by Chana Luu | | | | | | /[id number] | | MD Oksana at [facility] | | | | | | 042 | | [facility] | | | | | | | + +-------+-------+ +--------+--------+--------+ + + | Description:LAD | + + + +-------+-------+ +---+--------+--------+ | [employer] | Stent | N/A: | [place] | | 08/31/ | [id number] | | Coronary Stent 2.50mm X | | Heart | SCIENTIFIC | | 2017 | [id number] | | 12mmImplanted: Qty: 1 on | | | [employer] | | | 50 / | | 12/28/2014 by Chana Luu | | | | | | /[id number] | | MD Oksana at [facility] | | | | | | 520 | | [facility] | | | | | | [...] +--------+ +---------+--------+ | MEDICARE | MEDICA | [id number] | | [phone] | | Medica | | | RE | | 014-Pr | 5 | | re | | | PART A | | esent | | | | | | AND B | | | | | | + +--------+ +--------+ +---------+--------+ | AARP | AARP | [phone] | | [phone] | | Indemn | [...] surjit | | | 3 (Home) | [address] | + +--------+ +--------+ + + Advance Directives + + + + + | Type | Date Recorded | Patient | Explanation | | | | Education Site Manager | | + + + + + | Power of | 12/27/2014 10:56 | | Patient to bring | | Invoice Coder | PM | | | + + [...]
--- OUTSIDE RECORDS SUMMARY | ~2019-10-16 | XMS | Encounter Summary ---
Demographics + + + | Address | [address] | | | [place] [address] | + + + | Home Phone [...] Team Providers + +------+ + | Care Sign Builder Name | Role | Phone | + [...] | | | | | | Rd [facility] | | | | | | Hospital Admitting | | | | | | Desk Located on the | | | | | | 9th floor | | | | | | [place], [place] | | | | | | [address] | | | +--------+ + + + [...]
--- OUTSIDE RECORDS SUMMARY | ~2019-10-16 | XMS | Encounter Summary ---
Demographics + + + | Address | [address] | | | [place] [address] | + + + | Home Phone [...] Author | [facility] | + + + | Organization | [facility] | + + + | Address | [...] Team Providers + +------+ + | Care Physicians And Surgeons Name | Role | Phone | + +------+ + | Mary Vazquez PA-C | PCP | | + +------+ + Encounter Details +--------+ + + + + | Date | Type | Department | Care Team | Description | +--------+ + + + + | 07/11/ | Procedure | [address] Op [id number] | | | | 2019 | Pass | [address] | | | | | | Rd [facility] | | | | | | Hospital Admitting | | | | | | Desk Located on the | | | | | | 9th floor | | | | | | [place], [place] | | | | | | [address] | | | +--------+ + + + [...]
--- OUTSIDE RECORDS SUMMARY | ~2019-10-16 | XMS | Encounter Summary ---
Demographics + + + | Address | [address] | | | [place] [address] | + + + | Home Phone [...] Providers + +------+ + | Care Construction Director Name | Role | Phone | [...] + + | 05/08/ | Hospital | [facility] [address] | Magnolia Diego MD | | | 2019 - | Encounter | [address] | [address] | | | | | [id number] [facility] | [place], [place] | | | 05/10/ | | [facility], | [address] | | | 2018 | | [place] [address] | [phone] | | | | | [phone] | | | +--------+ + + + [...] Diego MD PCP: Mary Vazquez PA-C Service: [facility] Neurosurgery Diagnoses Principal Final Diagnosis: Right frontotemporal [...] AM Discharging Attending: MD Marni Woods PA-C [address] [facility] [address]/kpv12 [place] [address] documented in t his encounter Discharge Instructions AttachmentsThe following attachments cannot be sent through Care Everywhere.Smoking Cessati on: Health Benefits: General Info (German)documented in this encounter Medications at Time of [...] Care Unit Team Progress Note NSICU ASSIGNED #[id number] ICU Admission Reason Most Recent Value ICU [...] daily -prn IV hydralazine Coronary arteriosclerosis in [place] artery Yes Current Assessment & Plan -see [...] 4L but did not travel here to [facility] with it -stable on 4L NC -RT [...] Provider Role Specialty Ipt Critical Care Nsicu #[id number] Treatment Team Ipt Neurosurgery #[id number] Treatment Team Neurological Surgery Patient Lines/Drains/Airways Status [...] of Service: 05/09/2018 KOKO KNIGHT EPIC DEPARTMENT: [facility] ICU NEURO Place of Service:- Inpatient CSN: [id number] Suggested Modifier: None Suggested CPT: TO [employer] SUPERVISOR KOKO Hoang Author:KOKO KNIGHT [address] [phone] signed by KOKO Hoang at 05/26/2018 1:38 [...] ASSESSMENT/PLAN: 68 y.o. 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 Neurologically intact. Transfer to cooper JOSE M EATON MD,PhD Resident Neurological Surgery Pgr. [id number] Associated attestation - Casey Hewitt MD - [...] medication information: see MAR. Functional Epidural: No IMAGING SPECIALIST: No Respiratory: RR: 15 , O2 Sat: 93 % , O2 Delivery: Nasal cannula Breath Sounds: Ex DARIEN: LLL: RUL: RLL: MELISSA No Comment: Cardiac: BP: 116/61 HR: 67 GI: Nausea/Vomiting Status: No Signs/Symptoms: Interventions: Assessment: Comments: : Last void: goins Contact Name: Juan (sister in law) Contact Number: [phone] Family contacted: Yes Comment:Juan updated via phone. [...] Giovanni Vincent MD PGY-5 Neurological Surgery Pager [phone] documented in this enco unter H&P Notes Susy Vallecillo MD - 05/08/2018 1:14 PM PDTFormatting of this note might be different fr om the original. . Neuroscience Intensive Care Unit Attending H&P Note Attending Pager #[phone] ICU Admission Reason Most Recent Value ICU [...] Cardiovascular HTN (hypertension) Yes Coronary arteriosclerosis in [place] artery Yes Ischemic cardiomyopathy Unknown Respiratory/Chest Chronic obstructive pulmonary disease (HCC) Yes Digestive PONV (postoperative nausea and vomiting) Unknown Other History of non-ST elevation myocardial infarction (NSTEMI) Yes Tobacco dependence Yes Acute postoperative pain Unknown NSICU treatment team members Provider Role Specialty Ipt Critical Care Nsicu #[id number] Treatment Team Ipt Neurosurgery #[id number] Treatment Team Neurological Surgery Code Status Code [...] and the recent imaging available. Seen with PA/SENIOR COMMISSARY AGENT Amaya Norton. Please see their note for details. I reviewed the documented findings, all data and the recent imaging available. Date of Service: 05/08/2018 Author:SUSY VALLECILLO MD [place] [phone] maya Norton, [facility] - 05/08/2018 1:00 PM PDT . Neuroscience Intensive Care Unit Team H&P Note NSICU ASSIGNED #[id number] 1 Days in ICU 1 Days in [...] stable and as approp Coronary arteriosclerosis in [place] artery Yes Current Assessment & Plan -see [...] LFTs (liver function tests) CAD in [place] artery s/p NSTEMI 12/27/2014; status post stent placement in the mid LAD Chronic pain COPD on oxygen at night Essential hypertension GERD (gastroesophageal reflux disease) Goiter Hemorrhagic stroke ([facility]) 2007 aneurysm MRSA (methicillin resistant staph aureus) culture positive post cariotomy for SAH Otitis media recent abx preadmit PONV (postoperative nausea and vomiting) Subarachnoid hemorrhage due to ruptured aneurysm ([facility]) 2007 Tobacco dependence Past Surgical History Procedure Laterality Date Partial thyroidectomy Right Hysterectomy Bladder suspension 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 Reception Agent shunt Tympanoplasty Right 1987 Lumpectomy of left breast 1978 Coronary stent placement 12/28/2014 status post stent placement in the mid LAD Removal of second vp hr assessment shunt Cholecystectomy Allergies Allergen Reactions Thayer Tar Hives Betadine [Povidone-Iodine (With Soap)] Rash [...] Provider Role Specialty Ipt Critical Care Nsicu #[id number] Treatment Team Ipt Neurosurgery #[id number] Treatment Team Neurological Surgery Patient Lines/Drains/Airways Status [...] e. Date of Service: 05/08/2018 KOKO KNIGHT [facility] DEPARTMENT: [facility] ICU NEURO Place of Service:- Inpatient CSN: [id number] Suggested Modifier: None Suggested CPT: TO [employer] SUPERVISOR KOKO Hoang Author:KOKO KNIGHT [address] [phone] signed by KOKO Hoang at 05/09/2018 11:10 [...] daily. Facility-Administered Medications: None Allergies Allergen Reactions Thayer Tar Hives Betadine [Povidone-Iodine (With Soap)] Rash Cipro [Ciprofloxacin] Nausea and Vomiting Codeine Hcl Nausea and Vomiting Sulfa (Sulfonamide Antibiotics) Erythema Past Medical History: Diagnosis Date Abnormal LFTs (liver function tests) CAD in big lag[place] artery Chronic pain COPD Essential hypertension GERD [...] Please contact the Neurosurgery resident on-call pager [phone] with questions or concerns. Vickie Estrada M.D., M.P.H. R2 Resident Physician Neurological Surgery Pager: [phone] signed by Magnolia Diego MD at 05/16/2018 9:09 AM PDTdocumented i n this encounter Procedure Notes Ata White MD - 05/08/2018 2:53 PM PDTAssociated Order(s): OPERATION RECORDDate of Service : 05/08/2018 Attending Surgeon:Ata White MD [place] Measurer(s):Abel Pratt MD Preoperative Diagnosis: Cranioplasty. Postoperative Diagnosis: [...] a running continuous fashion. MD CHANDRIKA Hansen/MODL /[id number] signed by Ata White MD at 05/08/2018 3:33 PM PDTDog Magnolia vo MD - 05/08/2018 1:14 PM PDTAssociated Order(s): OPERATION RECORDDate of Service: 05/08/2018 Attending Surgeon: Magnolia Diego MD Co-Surgeon: Ata White MD. [place] Measurer(s): Giovanni Vincent MD. Preoperative Diagnosis: Right frontotemporal [...] patient's head was placed in a horseshoe head of operation and logistics, and all pressure points were carefully padded. [...] and then affixed them to th e [place] lag[place] skull until they sat flush. Due to [...] further recovery. MD Magnolia Dudley MD CHANTALE/MODL /[id number] I, Dr. Magnolia Diego certify that I was present for and participated in the critical parts of the procedure. I further certify that I was the principal surgeon for this procedure. MAGNOLIA DIEGO MD [facility] [address] [facility] [address] documented in this encou nter Miscellaneous Notes [...] 4L but did not travel here to [facility] with it -stable on 4L NC -RT [...] Goal: sleep and go home tomorrow (05/09/181938) [facility] IP NURSE HANDOFF: Nesbitt hospital course events: [...] cranioplasty. She was discharged home with a [facility] and received IV ceftriaxone for 6 [...] had BM x2 this shift - RT high risk case manager left O2 tank (x2) at bedside for discharge. Pt continuing to need supplementa l O2 to keep O2 sats >88% Barriers to discharge: DC to home today AM?- Son Augusto will drive from [place] to come [facility] k her up in the AM. andoff - Ricarda Navarro RN - 05/09/2018 2:54 PM PDTNursing Handoff Patient Daily Goal: no more stool softeners (05/09/18 1931) [facility] IP NURSE HANDOFF: Nesbitt hospital course events: [...] cranioplasty. She was discharged home with a [facility] and received IV ceftriaxone for 6 [...] had BM x2 this shift - RT high risk case manager left O2 tank (x2) at bedside for discharge. Pt continuing to need supplementa l O2 to keep O2 sats >88% Barriers to discharge: DC to home tomorrow AM- [facility] [place] come p [facility] her up in the AM. andoff - John John RN - 05/09/2018 1:12 PM PDTNursing Handoff [facility] IP NURSE HANDOFF: Nesbtit hospital course events: Gloria Bell is a [...] tomorrow AM. Son Augusto will drive from [employer] to come pick her up in the AM. RT high risk case manager left O2 tank (x2) at bedside for discharge. Pt continuing to need supplemental O2 to keep O2 sats >88% lan of Care - Rula Pacheco, PT - 05/09/2018 9:53 AM PDTFormatting of this note might be different from the orig inal. Physical Therapy Evaluation [id number] GLORIA BELL Hospital Day: 1 Date of [...] a 68 y.o. female HD#1 with CAD, OR s/p s tent on ASA/plavix, HTN, previous [...] LFTs (liver function tests) CAD in big lag[place] artery Chronic pain COPD Essential hypertension GERD (gastroesophageal reflux disease) Goiter Hemorrhagic stroke (HCC) 2007 MRSA (methicillin resistant staph aureus) culture positive Otitis media PONV (postoperative nausea and vomiting) Subarachnoid hemorrhage due to ruptured aneurysm ([facility]) 2007 Tobacco dependence Past Surgical History: Procedure Laterality Date BLADDER SUSPENSION CHOLECYSTECTOMY CORONARY STENT PLACEMENT 12/28/2014 HYSTERECTOMY LUMPECTOMY OF LEFT BREAST 1979 PARTIAL THYROIDECTOMY Right REMOVAL OF FOILING MACHINE ADJUSTER SHUNT REPAIR OF ANEURYSM BY CLIPPING TYMPANOPLASTY Right 1987 FOILING MACHINE ADJUSTER SHUNT Living Environment: Patient lives alone in [...] room air fluctuating from 85-91%. Outcome Measure: [facility] BASIC MOBILITY Difficulty turning over in bed [...] w/railing 4 - None - Modified Independent/Independent [facility] Basic Mobility Total Score 24 Interpretation of [facility] Short Form - Basic Mobility: CMS Modifier [...] repiratory DME needed for discharge RT DC Research Scientist delivered 2 tanks for patient discharge to home. Patient might stay with brother in [place] instead of go home to [place]. If patient goes to [place] and stays with her brother, RT DCP with have vendor deliver concen trator. Vendor is [facility] [place] [phone], and [facility] [phone]. The RT liaison planner will continue to follow . Pager [phone] with any questions. andoff - Nataliya Martinez RN - 05/09/2018 2:35 AM PDTNursing Handoff [facility] IP NURSE HANDOFF: Nesbitt hospital course events: [...] of Care / Advance Care NSICU ASSIGNED #[id number] Date: 05/08/18 Advanced Directives: The patient does not have an advance directive in the EMR. A POLST is not indicated in the EMR. Healthcare Agent(s): Surrogate decision maker has been identified and is : Venessa Gerard (Daughter) , patents can be contacted at . The surrogate decision maker has been listed as the e mergency contact within [employer]. Code Status: Current Code Status Date Active Code Status Order ID Comments User Context 05/08/2018 7:07 AM Full Code [id number] Millicent Tony MD Inpatient Code History: Code Status History Date Active Date Inactive Code Status Order ID Comments User Context 12/03/2017 9:59 PM 12/10/2017 2:28 AM Full Code [id number] Tommie Zarco MD Inpatient 10/23/2015 3:47 PM 10/25/2015 6:29 PM Full Code [id number] Antoinette Adkins MD,PhD Inpatient 10/23/2015 6:46 AM 10/23/2015 3:47 PM Full Code [id number] Tommie Bliss Inpatient 06/07/2014 9:11 AM 06/08/2014 6:06 PM Full Code [id number] Angel Mazariegos MD Inpatient 06/07/2014 6:13 AM 06/07/2014 9:11 AM Full Code [id number] Beny Cruz MD Inpatient 05/13/2008 4:34 PM 05/14/2008 7:21 PM Full Code [id number] Alli Junior MD Inpatient 04/11/2008 5:27 PM 04/13/2008 11:04 PM Full Code [id number] Saskia Nguyen RN Inpatient 03/03/2008 1:17 PM 03/08/2008 10:09 PM Full Code [id number] To Prieto MD Inpatient 03/03/2008 1:16 PM 03/03/2008 1:16 PM DNR/DNI [id number] To Prieto MD Inpatient 03/03/2008 12:06 AM 03/03/2008 1:16 PM Full Code [id number] Marlon Mcintyre MD Inpatient 10/30/2007 10:53 PM 11/02/2007 8:59 PM Full Code [id number] Antoinette Saenz, ALEKSANDAR Inpatient 10/18/2007 5:01 AM 10/30/2007 10:53 PM Full Code [id number] Norberto E Mami Inpatient Narrative Summary of [...] 05/08/2018 1:26 PM PDTAssociated Problem(s): CAD in big lagoon artery-see isc hemic cardiomyopathy plan above ssessment [...] Radial less than 1 GIOVANNI VINCENT MD [id number] signed by Magnolia Diego MD at 05/16/2018 [...] + + | [facility] | [address] | [place] [address] | | | SERVICES, CORE | PARK [...] [facility] | [address] | [place] [address] | | | SERVICES, CORE | [address] [...] [facility] | [address] | [place] [address] | | | SERVICES, CORE | PARK [...] the MDRD equation recommended by the | RISU | | National Kidney Disease Education Program. [...] | + + + + + | [facility] | [address] | [place] [address] | | | RYAN [place]NELAS | [address] | | | + + + + + PROCEDURE NOTE (05/08/2018 10:26 PM PDT)OPERATION RECORD (05/08/2018 2:53 PM PDT) + + | Procedure Note | + + | Ata White MD - 05/08/2018 2:53 PM PDT Date of Service: 05/08/2018 Attending | | Surgeon:Ata White MD [place] Measurer(s):Abel Pratt MD | | Preoperative Diagnosis: Cranioplasty.Postoperative [...] | MDMW/MODLDD: 05/08/2018 14:29:00DT: 05/08/2018 14:53:38Job #: [id number] | |starting to come through the skin, [...] | | | | | | | |Aat White MD | |MW/MODL | | | | | | /[id number] | + + CBC (HEMOGRAM) ONLY (05/08/2018 [...] + + + + + | [facility] | [address] | [place] [address] | | | SERVICES, CORE | [address] | | | + + + + + OPERATION RECORD (05/08/2018 1:14 PM PDT) + + | Procedure Note | + + | Magnolia Diego MD - 05/08/2018 1:14 PM PDT Date of Service: 05/08/2018 Attending | | Surgeon: Magnolia Diego MD Co-Surgeon: Ata White MD. [place] Measurer(s): Giovanni | | MD Rakesh. Preoperative Diagnosis: [...] was placed | | in a horseshoe head of operation and logistics, and all pressure points were carefully padded. [...] then affixed them | | to the big lagoon skull until they sat flush. Due to [...] 05/08/2018 11:22:05DT: 05/08/2018 | | 13:14:51Job #: [id number], Dr. Magnolia Diego certify that I was present for and | | participated in the critical parts of the procedure. I further certify that I was the | | principal surgeon for this procedure.MAGNOLIA DIEGO MD[facility] [id number] [facility] | | [id number], [place] [phone] | | | |I, Dr. Magnolia Diego certify that I was present for and participated in the critical parts of the procedure. I further certify that I was the principal surgeon for this procedure. | | | | | | | |MAGNOLIA DIEGO MD | |[facility] [address] | |[address] | |[id number] | |[place] [address] | |[phone] | + + CT HEAD WO CONTRAST [...] Note | + + | Service Account, Cogito Res In Interface - 05/08/2018 1:05 PM [...] | + + + + + | [facility] | [address] | [place] [address] | | | SERVICES, CORE | [address] [...] (H) | 60 - 99 mg/dL | [facility] - | | | GLUCOSE, | | [...] [facility] | [address] | [place], [place] | | | RAÚL JAY OF OLIVIA | [facility] | [address] | | | TESTS | | | [...] - [facility] | [address] | [place], [place] | | | MAHNOMEN BUFFALO OF [facility] | [address] | [address] | | | TESTS | | | [...] | + + + + + | [facility] | [address] | [place] [address] | | | SERVICES, CORE | [address] [...] | + + + + + | [facility] | [address] | [place] [address] | | | SERVICES, CORE | [address] [...] | + + + + + | [facility] | [address] | [place] [address] | | | RYAN [place]NELAS | [address] [...] [facility] | [address] | [place] [address] | | | SERVICES, | [address] [...] | + + + + + | [facility] | [address] | [place] [address] | | | SERVICES, | [address] [...] [facility] | [address] | [place], [place] | | | [place] POINT OF CARE | [facility] | [address] | | | TESTS | | | [...] | + + | Coronary arteriosclerosis in big lagoon artery Coronary atherosclerosis of big lagoon | | coronary artery | + + [...]
--- OUTSIDE RECORDS SUMMARY | ~2019-10-16 | XMS | Encounter Summary ---
Demographics + + + | Address | [address] | | | [place] [address] | + + + | Home Phone [...] | + + +---------+ + | Eric Lueng | ECON | Unknown | | + + +---------+ + Care Team Providers + +------+ + | Care Powdered Metal Supervisor Name | Role | Phone | [...] | | | unspecified | | Rd [facility], | | | | | | | [place] | | | | | | | [address] | | | | | | | Phone: | | | | | | | [phone] | | | | | | | Fax: | | | | | | | [phone] | +--------+--------+ + + + + Encounter Details +--------+---------+ + + + | Date | Type | Department | Care Team | Description | +--------+---------+ + + + | 12/23/ | Office | Infectious | Saskia Nicolas MD | Acute osteomyelitis | | 2018 | Visit | Diseases at [facility] | [address] | of cranium (HCC) | | | | [address] | [address] | (Primary Dx); | | | | [facility] | [facility], [place] | Encounter for | | | | [address], [address] floor | [address] | long-term (current) | | | | [place], [place] | [phone] | use of antibiotics | | | | [address] | | | | | | [phone] | | | +--------+---------+ + + + [...] | Blood Pressure | 109/65 | 12/23/2017 10:29 AM | | | | | PDT | | + + + + + | Pulse | 75 | 12/23/2017 10:29 AM | | | | | PDT | | + + + + + | Temperature | 36.6 C (97.9 F) | 12/23/2017 10:29 AM | | | | | PDT | | + + + + + | Respiratory Rate | - | - | | + + + + + | Oxygen Saturation | 97% | 12/23/2017 10:29 AM | | | | | PDT | | + + + + + | Inhaled Oxygen | - | - | | | Concentration | | | | + + + + + | Weight | 49.5 kg (109 lb 2 | 12/23/2017 10:29 AM | | | | oz) | PDT | | + + + + + | Height | 149.9 cm (4' 11") | 12/23/2017 10:29 AM | | | [...] of this encounter Patient Instructions Patient Instructions Saskia Nicolas MD - 12/23/2017 10:30 AM PDTIt was great to see you to day! Below are some of the items we discussed today. I will send orders to have your labs drawn with the addition of the inflammatory markers I will talk to your surgeon about whether they would like repeat imaging You do not need to make an appointment to see me in follow up - we can do this by phone. My Chart is a great way to get a hold of me, our other providers and/or our clinic staff. Please let us know if you have any questions or concerns and we will get back to you as soon as we can. If it is more time sensitive, please call the clinic. I look forward to seeing you again soon. You are doing a great job! Saskia documented in this encounter Progress Notes Supa Quiles MA - 12/23/2017 10:30 AM PDTI Supa Quiles am functioning as a scribe for Shabana Bower who is a Architecture Intern [employer]. I have reviewed and verified the informa tion that I'm entering for this patient is accurate. askia Nicolas MD - 10:30 AM PDT INFECTIOUS DISEASES CLINIC FOLLOW UP Referrring Physician: No Referring Provider Per Patient NO REFERRING PROVIDER PER PT Primary Care Physician: NO PCP PER PATIENT Assessment/Plan MSSA cranial osteomyelitis MSSA cranial epidural abscess S/p removal of DEMO COORDINATOR shunt and infected hardware Central venous access in place Encounter for long-term antibiotics requiring intensive monitoring for antibiotic toxic ity Cielo Bell is a 67 y.o. Female with CAD s/p [place], HTN, SAH s/p right pterional c raniotomy for clipping (09/2007) c/b hydrocephalus treated by a right frontal VPS (03/2008) an d synthetic cranioplasty for eroded hardwarein 10/2015 who was admitted last month with MUKESH A cranial epidural abscess and osteomyelitis now presenting for follow up on Ceftriaxone. Cielo is doing well and on schedule to finish her antibiotics 01/16. Will touch base with NSGY regarding repeat imaging toward EOT. Will also add ESR/CRP to labs. We discussed infection, antibiotics, duration of therapy, lab results, and follow-up planni jesus, as described above. It is recommended that Ms. Bell follow up in Infectious Diseases Clinic in as needed. Fo r now can continue by phone. I have communicated my evaluation and treatment plan from today's visit with the patient's care team including the primary care provider and outpatient infusion provider. History other than "Interim History" below is directly copied from previous ID notes to marie charles. In addition I reviewed the history from the patient's [facility] admiss ion, including but not limited to all pertinent ID consultation notes, surgical procedures & findings, culture results & lab tests, pathology reports, case management notes, and the [facility] discharge summary. History: 67 y/o F with CAD s/p [place], HTN, SAH s/p right pterional craniotomy for clipping (09/2007) c/b hydrocephalus treated by a right frontal VPS (03/2008) and synthetic cranioplasty for eroded hardwarein 10/2015. 12/03 presented with a week of increasing headache and purulent draina ge from the cranioplasty site with wound dehiscence, and on 12/06/17 underwent removal of cr anioplasty and DEMO COORDINATOR shunt as well as washout or epidural abscess. All hardware was removed, wi th no immediate plans to replace shunt or cranioplasty. Pt was treated with ceftriaxone with EOT of 01/16. PMH, SH, Surg Hx, FH reviewed/updated Interim History Ms. Bell presents today from home. The patient has been receiving Ceftriaxone as direc eli without missed doses. There have been no noticeable antibiotic side effects There have b een no fevers, chills, or night sweats. Patient denies any nausea, vomiting, diarrhea. The p atient reports no difficulties with their vascular access device. All others negative except for those mentioned above Current Medications: medications. Current Outpatient Prescriptions Medication Sig acetaminophen 325 mg oral tablet Take 1-2 tablets by mouth every six hours as needed fo r moderate pain. aspirin EC 81 mg oral tablet,delayed release (DR/EC) Take 1 tablet by mouth once daily. Do not restart aspirin until 2 weeks after surgery-12/20 atorvastatin 80 mg oral tablet Take 80 mg by mouth once daily at bedtime. bisacodyl 10 mg rectal suppository Unwrap and insert 1 suppository rectally once daily as needed (2nd line for no BM in past 2 days or if not response to MIRALAX or if unable to t olerate oral). cefTRIAXone intravenous recon soln Inject 2 g into the vein (IV) every twenty-four hour s. To be admixed per infusion pharmacy standard policy and/or procedure. clopidogrel 75 mg oral tablet Take 1 tablet by mouth once daily. Do not restart plavix until 2 weeks after surgery-12/20 lisinopril 5 mg oral tablet Take 5 mg by mouth once daily. metoprolol succinate 50 mg oral tablet extended release 24 hr Take 50 mg by mouth once daily. nicotine 21 mg/24 hr transdermal patch 24 hour Apply 1 patch to skin once daily. ondansetron 8 mg oral tablet Take 1 tablet by mouth every twelve hours as needed for na usea/vomiting. polyethylene glycol 17 gram oral powder in packet Mix 1 packet and take orally two time s daily. Indications: constipation scopolamine 1 mg over 3 days transdermal patch 3 day Apply 1 patch to skin every sevent y-two hours. Indications: Prevention of Post-Operative Nausea and Vomiting senna-docusate 8.6-50 mg oral tablet Take 2 tablets by mouth twice daily as needed (ileana e twice daily as long as you are taking narcotic pain medication). spironolactone 25 mg oral tablet Take 25 mg by mouth once daily. No current facility-administered medications for this visit. Antibiotic Summary: Vancomycin 12/05-12/09 Cefepime 12/05-12/07 Metronidazole 12/05-12/09 Ceftriaxone 12/09- Allergies: No new allergic reactions have been noted today. [place] tar; Betadine [povidone-iodine (with soap)]; Cipro [ciprofloxacin]; Codeine hcl; and S ulfa (sulfonamide antibiotics) Physical Exam: VS: Ht 1.499 m (4' 11"), Wt 49.5 kg (109 lb 2 oz), BP 109/65, Pulse 75, Temperature 36.6 C (97.9 F), Temperature source Forehead, SpO2 97%, BMI 22.04 kg/(m^2). Facility age limit for growth percentiles is 18 years. General: The patient was sitting comfortably at rest. Looked well HEENT: eomi, anicteric sclera, PERRL Skin/wound: no rashes, lesions, surgical site with genoveva in place, no erythema or fluctua nce, no dehiscence. Neurologic: grossly intact, ? Short term memory lapses Psychiatric: appropriate Lines: The PICC site was clean, without redness Diagnostic Tests: Recent lab results were reviewed to detect antibiotic side effects and to assess response to treatment for infection. Microbiology Summary: Abscess fluid 12/05: MSSA Staphylococcus aureus SUSCEPTIBILITY-GRANT Cefazolin S Clindamycin S Erythromycin S Oxacillin S Penicillin R Tetracycline S Trimethoprim/Sulfa S Vancomycin S RADIOLOGY: 12/06/17 CT head wo contrast: Interval postsurgical changes of right frontal cranioplasty and DEMO COORDINATOR shunt removal without ac [place] intracranial abnormality. Fluid and gas collection in the cranioplasty bed is unchanged. Stable bifrontal encephalomalacia. Saskia Nicolas MD INFECTIOUS DISEASES AT [facility] [address]RD FLOOR [address] [facility] Mailcode: [id number] [place] [address] documented in this enc ounter Plan of Treatment Not on filedocumented as of this encounter Visit Diagnoses + + | Diagnosis | + + | Acute osteomyelitis of cranium (HCC) - Primary | + + | Encounter for long-term (current) use of antibiotics | + + documented in this encounter
--- OUTSIDE RECORDS SUMMARY | ~2019-10-16 | XMS | Encounter Summary ---
Demographics + + + | Address | [address] | | | [place] [address] | + + + | Home Phone [...] Team Providers + +------+ + | Care Industrial Twisting Machine Operator Name | Role | Phone [...] CRANIOPLASTY | | 2019 | | [address] [facility] | [address] | EXPLANT, COMPLEX | | | | [address] [facility] | [place], [place] | WOUND CLOSURE | | | | Hospital Admitting | [address] | | | | | Desk Located on the | [phone] | | | | | 9th floor | | | | | | [place], [place] | | | | | | [address] | | | +--------+---------+ + + + [...] Urbina MD PCP: Mary Vazquez PA-C Service: [facility] Neurosurgery Diagnoses Principal Final Diagnosis: Wound [...] AM Discharging Attending: MD Marni Beck PA-C [facility] [address] [address] [place] [address] documented in t his encounter Medications at [...] Vazquez PA-C Admission Date: 07/10/2018 GLORIA BELL, [id number] Hospital Day #3 PROCEDURES: Dr. White (ENT) [...] FRENCH PA-C Otolaryngology-Head and Neck Surgery [facility] [place] Pager [phone] arni Manning PA-C - 07/12/2018 1:11 PM [...] 06/25 equal b/l No Pronator Drift No nzbbvb-wu-ywcm dysmetria nor ataxia SILT Incision c/d/i. Nylons [...] defect at bedside (suture) She presents to [facility] with wound dehiscence and exposed hardware [...] 24-28hr. Marni Manning PA-C Neurological Surgery Pg [phone] Steven Piña PA-C - 07/12/2018 8:07 AM PDTFormatting of this note might be different from the reba naik. DOS: 07/12/2018 Head and Neck Surgery Inpatient Daily Progress Note: Primary Care Provider: Mary Vazquez PA-C Admission Date: 07/10/2018 GLORIA BELL, [id number] Hospital Day #2 PROCEDURES: Dr. White (ENT) [...] FRENCH PA-C Otolaryngology-Head and Neck Surgery [facility] [place] Pager [phone] ossVickie MD, MPH - 07/11/2018 3:52 PM [...] Please contact the Neurosurgery resident on-call pager [phone] with questions or concerns. Vickie Estrada M.D., M.P.H. R2 Resident Physician Neurological Surgery Pager: [phone] signed by Vickie Estrada MD,MPH at 07/11/2018 [...] of the implant. Ata White MD MW/MODL /[id number] signed by Ata White MD at 07/11/2018 3:28 PM PDTAngie Moreno PA-C - 07/11/2018 9:30 AM PDT DOS: 07/11/2018 Head and Neck Surgery Inpatient Daily Progress Note: Primary Care Provider: Mary Vazquez PA-C Admission Date: 07/10/2018 GLORIA BELL, [id number] Hospital Day #1 SUBJECTIVE INTERVAL EVENTS: To [...] FRENCH PA-C Otolaryngology-Head and Neck Surgery [facility] Pager [phone] Nettie Knowles PA - 07/11/2018 6:39 AM [...] S Final Report Comment: Test performed at [facility]. 03/07/2008 Corrected CSF Culture Source...............: Cerebrospinal Fluid RLB Gram Stain...........: Gram smear performed at [facility]. Culture: Final Report: No growth after 3 days. Final Report Comment: Test performed at [facility]. 03/03/2008 Corrected CSF Culture Source...............: Cerebrospinal Fluid RLB Gram Stain...........: Gram smear performed at [facility]. Culture: Final Report: No growth after 3 days. Final Report Comment: Test performed at [facility]. 03/03/2008 Corrected Wound Culture Source...............: Skin Abscess RLB Gram Stain...........: Rare Squamous epithelial cells Rare PMN's Rare Gram positive cocci Culture: 1+ Methicillin resistant Staphylococcus aureus Final ID MRSA Cefazolin R Clindamycin S Erythromycin R Oxacillin R Penicillin R Tetracycline S Trimeth/Sulfa S Vancomycin S Final Report Resulted: 03/05/08 RLB ([facility]) [facility] [place] [address] [place] [address] Comment: Test performed at [facility]. CULTURE RESULT Date Value Ref [...] defect at bedside (suture) She presents to [facility] with wound dehiscence and exposed hardware. Plan for surgery today vi a explant of cranioplasty and primary wound closure by Dr White. PLAN: OR today for cranioplasty explant and primary wound closure. Anticipate return to 10K post op. NPO. Resume lisinopril post op. Continue atorvastatin, spironolactone, metoprolol. Nicotine patch. Post operative wound care per ENT. ANSON MULLINS [facility] [address] [place] [address] Drive [address]/[place] [address] Doug Dhaliwal M D - 07/10/2018 3:38 [...] Please contact the Neurosurgery resident on-call pager [phone] with questions or concerns. Vickie Estrada M.D., M.P.H. R2 Resident Physician Neurological Surgery Pager: [phone] signed by Doug Aponte MD at 07/10/2018 8:01 PM Anita cintron in this encounter Procedure Notes Adolfo Urbina MD - 07/11/2018 3:24 PM PDTAssociated Order(s): OPERATION RECORDDate of Serv ice: 07/11/2018 Attending Surgeon: Adolfo Urbina MD Plastic Tile Layer(s): Kari Cavazos MD Preoperative Diagnoses: 1. Wound [...] imaging. Initial Surgical Contact: Neurosurgery at pager [phone]. Indications For Procedure: Please see [facility] for full details, but briefly, Marisela [...] desiring cranioplasty for cosmetic reasons. We did cemetery counselor her that she may require a [...] [facility]. She was intubated without difficult y [...] correct x2. MD Adolfo Emmanuel MD JLG/MODL /[id number] aAta michael MD - 07/12/19 19 2:21 [...] up, woken up, extubated and sent to [facility] recovery room. Ata White MD MW/MODL /[id number] signed by Ata White MD at 07/11/2018 3:28 PM [facility] Consult Notes [...] above Past Histories Allergies: Allergies Allergen Reactions Cataño Tar Hives Betadine [Povidone-Iodine (With Soap)] Rash Cipro [Ciprofloxacin] Nausea and Vomiting Codeine Hcl Nausea and Vomiting Sulfa (Sulfonamide Antibiotics) Erythema Past Surgical History Procedure Laterality Date Partial thyroidectomy Right Hysterectomy Bladder suspension 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 Retail Selling Floor Leader shunt Tympanoplasty Right 1987 Lumpectomy of left breast 1979 Coronary stent placement 12/28/2014 status post stent placement in the mid LAD Removal of vp integration shunt Cholecystectomy Past Medical History: Diagnosis Date Abnormal LFTs (liver function tests) CAD in blackfeet artery s/p NSTEMI 12/27/2014; status post stent [...] for input(s): FIO2, PH, PCO2, PO2, HCO3, [id number], R1BTJZVU, S6TVPHFSB in the l ast 720 hours. CSF [...] primary closure Doug Aponte MD Neurosurgery PGY2 [id number] Risk and Morbidity Patient Risk Modifiers - Including but not limited to. Age: 68 y.o. female DNR: Prior Transfer status/urgency : From Outside Hospital : From [facility] ER: Symptom Onset: Less than 12 hours (07/10/18 1) Patient Acuity: 3 (07/10/18920) Destination: Acute (07/10/18920) Palliative/end of Life Care :Not applicable First GCS and if Mechanically Ventilated/Intubated: Best Motor Response: 6-->(M6) obeys commands (07/10/18920) Best Verbal Response: 5-->(V5) oriented (07/10/18920) Best Eye Response: 4-->(E4) spontaneous (07/10/18920) Score (Independence Coma Scale): 15 (07/10/18920) Last GCS and if Mechanically Ventilated/Intubation: Best Motor Response: 6-->(M6) obeys commands (07/10/18920) Best Verbal Response: 5-->(V5) oriented (07/10/18920) Best Eye Response: 4-->(E4) spontaneous (07/10/18920) Score (Independence Coma Scale): 15 (07/10/18920) Comatose State: If GCS<9 Then patient by definition is in a comatose state Score (Independence Coma Scale) Min: 15 Max: 15 Loss [...] weeks. Continuous tobacco abuse Coronary arteriosclerosis in blackfeet artery 03/06/2015 History of non-ST elevation myocardial [...] additions o r exceptions. Adolfo Urbina MD Radio Maintainer - Skull base and Cerebrovascular Neurosurgery Department of Neurological Newspaper Or Periodical EditorRadio Maintainer - Interventional Neuroradiology Alex Ochoa Department of Interventional Radiology [facility] [place] Mel Blanca MD - 07/10/2018 9:34 AM [...] ruptured aneurysm (HCC) 2007 Goiter CAD in blackfeet artery s/p NSTEMI 12/27/2014; status post stent placement in the mid LAD Abnormal LFTs (liver function tests) MRSA (methicillin resistant staph aureus) culture positive post cariotomy for SAH Hemorrhagic stroke (HCC) 2007 aneurysm PONV (postoperative nausea and vomiting) Past Surgical History Procedure Date Partial thyroidectomy Hysterectomy Bladder suspension 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 Retail Selling Floor Leader shunt Tympanoplasty 1987 Lumpectomy of left breast 1979 Coronary stent placement 12/28/2014 status post stent placement in the mid LAD Removal of vp integration shunt Cholecystectomy Social History Tobacco Use Smoking status: Current Every Day Smoker Packs/day: 1.00 Years: 50.00 Pack years: 50.00 Types: Cigarettes Smokeless tobacco: Never Used Tobacco comment: Substance Use Topics Alcohol use: No Alcohol/week: 0.0 oz Drug use: No Family History Problem Relation Additional Family History Mother dementia Cancer Father brain Cancer Brother lung Allergies Allergen Reactions Cataño Tar Hives Betadine [Povidone-Iodine (With Soap)] Rash [...] Resident Physician, PGY1 Otolaryngology, H&N Surgery Pager [phone] Associated attestation - Ata White MD - [...] weeks. Continuous tobacco abuse Coronary arteriosclerosis in blackfeet artery 03/06/2015 History of non-ST elevation myocardial [...] ruptured aneurysm (HCC) 2007 Goiter CAD in blackfeet artery s/p NSTEMI 12/27/2014; status post stent placement in the mid LAD Abnormal LFTs (liver function tests) MRSA (methicillin resistant staph aureus) culture positive post cariotomy for SAH Hemorrhagic stroke ([facility]) 2007 aneurysm PONV (postoperative nausea and vomiting) Past Surgical History Procedure Date Partial thyroidectomy Hysterectomy Bladder suspension 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 Retail Selling Floor Leader shunt Tympanoplasty 1987 Lumpectomy of left breast 1979 Coronary stent placement 12/28/2014 status post stent placement in the mid LAD Removal of vp integration shunt Cholecystectomy Medications Prior to Admission Medications [...] daily. Facility-Administered Medications: None Allergies Allergen Reactions Cataño Tar Hives Betadine [Povidone-Iodine (With Soap)] Rash [...] Discussed this case with neurosurgery resid ent [employer] and they will accept to their service. Given no fevers and hemodynamically stabl e, no indication for empiric antibiotics at this point. Spoke with E[facility] [employer] [facility] [employer] [facility] who did the procedure last month, they [...] co-wrote the ED Provider Note using the [employer] share function. I agree with the documentation [...] RN - 07/13/2018 1:08 AM PDTNursing Handoff [facility] [...] d aneurysm (HCC) 2007, Goiter, CAD in blackfeet artery s/p NSTEMI 12/27/2014; status post stent [...] RN - 07/12/2018 5:14 PM PDTNursing Handoff [facility] [...] d aneurysm (HCC) 2007, Goiter, CAD in blackfeet artery s/p NSTEMI 12/27/2014; status post stent [...] coverage of new implant. She presents to [facility] today with exposed synthetic bone flap [...] pain medication information: none Functional Epidural: N/A BOWLING BALL GRADER AND MARKER: N/A Respiratory: RR: 15 , O2 Sat: 92 % , O2 Delivery: Nasal cannula Breath Sounds: Ex DARIEN: LLL: RUL: RLL: MELISSA No Comment: persistent cough and has COPD Cardiac: BP: 106/47 HR: 71 GI: Nausea/Vomiting Status: Yes- Signs/Symptoms: intermittent nausea Interventions: antiemetic given Assessment: relief of signs/symptoms Comments: resolved : Last void: preop Contact Name: Juan BOYKIN Contact Number: [phone] Family contacted: Yes Comment: no answer Belongings: [...] imaging Initial surgical contact: neurosurgery at pager [phone] Patient Lines/Drains/Airways Status Active Lines, Drains and [...] Patient Daily Goal: get rest (07/11/18 0005) [facility] IP NURSE HANDOFF: [...] coverage of new implant. She presents to [facility] today with exposed synthetic bone flap [...] Daily Goal: prepare for surgery tomorrow (07/10/18 3895) [facility] IP NURSE HANDOFF: [facility]es[facility]itt hospital course events: Gloria Blel is a 68 y.o. fe male with [...] coverage of new implant. She presents to [facility] today with exposed synthetic bone flap [...] lan of Care - [employer]leon[employer] Ayush serra, LOAN ASSOCIATE - 07/10/2018 4:51 PM PDTFormatting of this [...] Attending | | Surgeon: Adolfo Urbina MD Plastic Tile Layer(s): Kari Cavazos MD | | Preoperative Diagnoses: [...] Surgical Contact: Neurosurgery | | at pager [phone].Indications For Procedure: Please see [facility] for full details, but | | [...] desiring cranioplasty for cosmetic reasons. We did cemetery counselor her that | | she may [...] [facility] She was | | intubated without [...] 07/11/2018 15:04:23DT: 07/11/2018 | | 15:24:02Jo #: [id number] | | | |Indications For Procedure: Please [...] plasty for cosmetic reasons. We did | |cemetery counselor her that she may require a [...] rought back [facility] She was intubated without difficult y [...] |JLG/MODL | | | | | | /[id number] | + + CAPILLARY BLOOD GLUCOSE (NO [...] | + + + + + | [facility] | [address] | [place], [place] | | | [facility] | [address] | [address] | | | TESTS | | | [...] | MELI/SWAPNILLDD: 07/11/2018 14:09:26DT: 07/11/2018 14:21:09Job #: [id number] | | | | | |Ata White MD | |CHANDRIKA/NGUYEN | | | | | | /[id number] | + + CULTURE, FUNGAL EXCEPT BLOOD, [...] + | [facility] - | [address] | [place] [address] | | | [place] | | | [...] + | [facility] | [address] | [place] [address] | | | [place] | | | | + + + [...] + + + + + | [facility] | [address] | [place] [address] | | | [facility] | | | | + + [...] [facility] | [address] | [place] [address] | | | SERVICES, CORE | PARK [...] | [facility] | [address] | [place] [address] | | | SERVICES, CORE | RAMSES [...] [facility] | [address] | [place] [address] | | | SERVICES, CORE | PARK [...] [facility] | [address] | [place] [address] | | | [facility] | PARK [...] C[facility] | [address] | [place] [address] | | | [facility]AN [place]NELAS | RAMSES [...] | | | LABORATORY | | | [place] | | | SERVICES, | | | [...] | + + + + + | [facility] | [address] | [place] [address] | | | SERVICES, CORE | RAMSES [...]
--- OUTSIDE RECORDS SUMMARY | ~2019-10-16 | XMS | Encounter Summary ---
Demographics + + + | Address | [address] | | | [place] [address] | + + + | Home Phone [...] Team Providers + +------+ + | Care Server Engineer Name | Role | Phone | [...] | | | [address] | [facility] | Infectious disease | | | | Loop Physician's | [place], [place] | | | | | [place], [address] [place] [address] | [address] | | | | | [place], [place] | [phone] | | | | | [address] | | | | | | [phone] | | | +--------+ + + + [...] Kristen Goss, RN - 12/13/2017 9[facility] Note ASSESS[facility] Spoke with Cielo at [phone]. She stated that infusions of Ceftriaxone IV have been a dministered as scheduled at 1700 at [facility] in [facility]. Denies any s/s of complicati on of infection, PICC problems or medication adverse reactions. PICC dressing change and la bs on Wednesdays Confirmed follow up appointment on Next Appointment in [facility] INFECT DIS 3 PPV is on 12/23/17 at 10:30 am with Saskia iNcolas MD. Verified patient's OPAT medications are accurately [...] Faxed lab orders to Day Surgery at [phone]. They can accept lab orders from outside [...] completed without provider involvement Kristen Goss RN [facility] INFECTIOUS DISEASE [facility] INFECTIOUS DISEASES AT [facility] 3RD FLOOR [address] [facility] [address] documented in this en counter Plan of Treatment Not on filedocumented as of this encounter Visit Diagnoses + + | Diagnosis | + + | Osteomyelitis, unspecified site, unspecified type (HCC) - Primary | + + documented in this encounter"
--- OUTSIDE RECORDS SUMMARY | ~2019-10-16 | XMS | Encounter Summary ---
Demographics + + + | Address | [address] | | | [place] [address] | + + + | Home Phone [...] + | Author | [facility] | | | and [place] | + + + | Organization | [facility] | | | and [...] Team Providers + +------+ + | Care Cable Tv Installer Name | Role | Phone | [...] + + | 12/27/ | Hospital | [facility] | Chana Rangel, | Chronic obstructive | | 2015 - | Encounter | [facility] ICU [address] | pulmonary disease, | | | | [place], | [place], [place] | unspecified COPD | | 12/29/ | | [place] [address] | [id number] | type (HCC) (Primary | | 2014 | | [phone] | | Dx); H/O cerebral | | | | | | aneurysm repair; | | | | | | NSTEMI (non-ST | | | | | | elevated myocardial | | | | | | infarction) ([facility]) | +--------+ + + + + Social [...] [place] She presented to the ER at [facility]. She awoke this AM at 7 and [...] chest pain. She was taken to the production laborer. successful PCI of the LAD Bare metal [...] patch on as this could result in MT. She was able to tolerate nebulizer. She [...] and the first on is negative. Echo: [facility] ECHOCARDIOGRAM REPORT STUDY DATE: 12/28/2014 PATIENT NAME: Cielo Bell : 1950 PCP: Lance Pandya CLINICAL HISTORY/DIAGNOSIS: MT A transthoracic echocardiogram with M-mode, pulsed-wave and [...] the affected wrist straigh t. Call the product safety administrator who did your procedure as soon as possible. Other Concerns Call the product safety administrator who did your procedure if you have: Any of these Signs of Infection: Redness Fever higher than 101.5 degrees F or 38.6 degrees C Change in the bruise or lump. Numbness in your arm or wrist. Severe pain that is not relieved by Tylenol. Follow-up Care Continue your prescribed medications unless instructed otherwise. Follow-up with your primary health care provider and product safety administrator after your procedure, as instructed. If you have questions or concerns about your cardiac catheterization procedure, call the number below. AttachmentsThe following attachments cannot be sent through Care Everywhere.CANCER, PREVENT ING (TURKMEN)COPD, WHAT IS (TURKMEN)HEART ATTACK, SYMPTOMS OF A (TURKMEN)LIVING WELL AFTER A HEART ATTACK (TURKMEN)LUNG DISEASE, CHRONIC: CONTROLLING STRESS (TURKMEN)LUNG DISEASE, CH RONIC: STARTING AN EXERCISE PLAN (TURKMEN)LUNG DISEASE, CHRONIC: TIPS FOR QUITTING SMOKING ( TURKMEN)QUESTIONS FOR YOUR HEALTH CARE TEAM, HEART ATTACK (TURKMEN)SMOKE FREE,BENEFITS OF LIVING (TURKMEN)SMOKE,WHY DO YOU (TURKMEN)SMOKING CESSATION (TURKMEN)SMOKING WITHDRAWAL, COPING WITH (TURKMEN)SMOKING,GETTING SUPPORT FOR QUITTING (TURKMEN)SMOKING,HEALTH EFFEC TS OF (TURKMEN)SMOKING,PLANNING TO QUIT (TURKMEN)SMOKING,TIPS FOR QUITTING (CARDIOVASCUL AR) (TURKMEN)EXERCISING AFTER A HEART ATTACK (TURKMEN)documented in this encounter Medications at Time of [...] the original. CARDIOLOGY PROGRESS NOTE on 12/29/2014 [facility] Pt. Name/Age/: Cielo Bell 64 y.o. 1950 Med. Record Number: [id number] Primary Care Physician: Lance Pandya Date of [...] 75 No results for input(s): PHART, PO2ART, ANH7EOV, J5OZMLJY, BEART in the last 168 hours. Recent Labs Lab 12/29/14 0408 12/28/14 0745 12/28/14 0007 TROPONINI 75.39* >100.00* 28.90* Recent Labs Lab 12/29/14407 INR 1.01 Micro results last 72hrs: Microbiology Results (72 hrs) Procedure Component Value Units Date/Time Culture, Respiratory, Lower, Smear [[id number]] Collected: 12/28/14 1236 Order Status: Completed Lab Status: Preliminary result Updated: 12/28/14 1447 Specimen Information: Respiratory / Sputum, expectorated Gram Stain Result 3+ White Blood Cells 1+ Epithelial cells 3+ Gram positive cocci 2+ Gram negative diplococci 1+ Gram negative rods Culture, MRSA [[id number]] Collected: 12/28/14 0808 Order Status: Completed Lab [...] oxyCODONE Electronically signed by: Chana Rangel MD [facility] 12/29/2014 8:06 [facility] Portions of this chart may have been created with IntelliGeneScan voice recognition software. Occasi onal wrong-word or [...] RN - 12/28/2014 11:09 AM PSTDischarge cardiac production laborer education performed . Patient given laboratory veterinarian plavix folder. Patient and patient's family at [...] Nausea And Vomiting Codeine Nausea And Vomiting [place] Tar Hives Povidone Iodine Hives Sulfa Antibiotics [...] in the radial right ECG: Evolving anterior MT LAB RESULTS: LIPID No results found for: [...] ECGs available Confirmed by CHANA RANGEL MD ([id number]) on 12/28/2014 6:53:08 AM Troponin I Result [...] in Anterior leads Serial changes of evolving MT Confirmed by CHANA RANGEL MD ([id number]) on 12/28/2014 6:55:04 AM Comprehensive Metabolic Panel [...] Lavender Top Tube Done ASSESSMENT: Acute anterior MT with delayed presentation H/O 2 cerebral aneurysms (coil and clip 2007) HTN Dyslipidemia PLAN: Discussed smoking cessation Discussed medical Rx Echo Electronically signed by: Chana Rangel MD [facility] 12/28/2014 Portions of this chart may have been created with IntelliGeneScan voice recognition software. Occasi onal wrong-word or [...] [place] She presented to the ER at [facility]. She awoke this AM at 7 and [...] and 1 coiled. She also has a ALLERGIST shunt that is not functioning and not [...] Nausea And Vomiting Codeine Nausea And Vomiting [place] Tar Hives Povidone Iodine Hives Sulfa Antibiotics [...] normal right radial Skin benign ECG: Anterior MT with Q waves LAB RESULTS: LIPID Not available CHEMISTRY Gluc 127 Creat 0.82 K 4.1 HEMATOLOGY No results found for: WBC 13.1, WBCEX, HGB 13.8 HGBEX, HCT, HCTEX, PLT, 233 I reviewed records from [facility] and [facility] ASSESSMENT: Anterior MT - ongoing pain H/O cerebral aneurysms H/O [...] patient. Electronically signed by: Chana Rangel MD [facility] 12/27/2014 Portions of this chart may have been created with IntelliGeneScan voice recognition software. Occasi onal wrong-word or [...] Review . Outcome: Progressing Patient lives in [place], [place] and will be discharging home today. PCP is Dr. Pandya. Will follow up with production laborer to make a appointment. No further needs. Electronically signed by: JUSTINA Guillory 12/29/2014 12:48 After speaking with MARCELL Garcia, she stats that patient needed a nebulizer at discharge. Ashkan glass faxed the Rx, face sheet to [facility] in [place]. She spoke with Vivek to set this up. Vivek states that they would have it delivered to patients home. Electronically signed by: JUSTINA Guilolry 12/29/2014 15:46Electronically signed by JUSTINA Lechuga at [...] VSS. lan of [place] - Marleny Jolley, STATISTICIAN THEORETICAL - 12/28/2014 6:30 PM PSTFormatting of this [...] 3 12-14 4 15+ 5 lan of [facility] - Ronda Velasquez RN - 12/28/2014 9:46 AM PSTBlack tarry loose stool hemoccult positiveEl ectronically signed by Ronda Perla RN at 12/28/2014 9:47 AM PSTPlan of [facility] - Ronda Limon RN - 12/28/2014 9:15 AM PSTLarge emesis absent nausea - 250 ml undigested f oods/juices from breakfast - declined prn meds as no nausea followed emesisElectronically si gned by Ronda Perla, ALEKSANDAR at 12/28/2014 10:15 AM PSTPlan of [facility] - Meme Richter, RN - 12/28/2014 4:09 [...] on heparin for the ambulance ride from [place] until she went down for stent placement. [...] consent form sig gem. Patient transported to production laborer with RN and monitor without incident. Electronically [...] | | | | | | type ([facility]) H/O | | | | | | cerebral aneurysm | | | | | | repair NSTEMI | | | | | | (non-ST elevated | | | | | | myocardial | | | | | | infarction) ([facility]) | | + +------+--------+ + + documented [...] | | | | | | [employer] | | | | | [...] ST. | [address] | [place] | [phone] | | [facility] | | [address] | | | - LABORATORY | | [...] [address] | [place] | [phone] | | [facility] | | [address] | | | - LABORATORY | | [...] + | [facility] | [address] | [place] | [phone] | | [facility] | | [address] | | | - LABORATORY | | [...] | mL/min/1.73m2 | [facility] | | | Malaysian | RATE,ESTIMATED | | MEDICAL | | | | mL/min/1.44o7Blmi than | | CENTER - | | [...] + | [facility] [facility] | [address] | [place] | [phone] | | [facility] | | [address] | | | - LABORATORY | | [...] [address] | [place] | [phone] | | [facility] | | [address] | | | - LABORATORY | | | | + + + + + ECHO Complete (12/28/2014 11:00 AM PST) + + | Specimen | + + | | + + + + + | Narrative | Performed At | + + + | [facility] ECHOCARDIOGRAM REPORT | | | STUDY DATE: 12/28/2014 PATIENT NAME: Cielo Bell | | | : 1950 PCP: Lance Pandya | | | CLINICAL HISTORY/DIAGNOSIS: MT A transthoracic echocardiogram | | | with [...] Hugo Garcia MD | | | PhD [facility] 12/28/2014 11:57 Firmware Developer: Karol | | | MARIANA Dawson | [...] [address] | [place] | [phone] | | [facility] | | [address] | | | - LABORATORY | | [...] | | | | | | [employer] | | | | | [...] [address] | [place] | [phone] | | [facility] | | [address] | | | - LABORATORY | | [...] + | [facility] | [address] | [place] | [phone] | | [facility] | | [address] | | | - LABORATORY | | [...] | | Ratio | | | [facility] | | | | | | MEDICAL [...] [address] | [place] | [phone] | | [facility] | | [address] | | | - LABORATORY | | [...] | 0.77 | 0.60 - 1.30 | [facility] | | | | | mg/dL | [facility] | | | | | | MEDICAL | | | | | | CENTER - | | | | | | LABORATORY | | + + + + + + | eGFR, | >60Comment: GLOMERULAR | >=60 | [facility] | | | non- | FILTRATION | mL/min/1.73m2 | [facility] | | | Malaysian | RATE,ESTIMATED | | MEDICAL | | | | mL/min/1.93y1Xjor than | | CENTER - | | [...] | bulin Ratio | | | [facility] | | | | | | MEDICAL [...] [address] | [place] | [phone] | | [facility] | | [address] | | | - LABORATORY | | [...] + | [facility] | [address] | [place] | [phone] | | [facility] | | [address] | | | - LABORATORY | | [...] MD | | | | | | ([id number]) on 12/28/2014 | | | | | [...] Performed At | + + + | [facility] Percutaneous Coronary Intervention | | | Report PATIENT NAME: Cielo Bell DATE OF : | | | 1950 DATE OF PROCEDURE: | | | 12/28/2014 | | | PRIMARY | | | CARE PROVIDER: Lance Pandya DEPUTY CHIEF SHERIFF: Chana Rangel, | | | , [facility], [facility] PRE-PROCEDURE DIAGNOSIS: NSTEMI with ongoing | [...] | | using a micropuncture kit. A 5-[place] PAPA guide catheter was | | | [...] chart were created | | | with IntelliGeneScan voice recognition software. Occasional wrong-word or | [...] + | [facility] | [address] | [place] | [phone] | | [facility] | | [address] | | | - LABORATORY | | [...] [address] | [place] | [phone] | | [facility] | | [address] | | | - LABORATORY | | [...] [address] | [place] | [phone] | | [facility] | | [address] | | | - LABORATORY | | [...] | | | | | | [employer] | | | | | [...] [address] | [place] | [phone] | | [facility] | | [address] | | | - LABORATORY | | [...] MD | | | | | | ([id number]) on 12/28/2014 | | | | | [...] Chronic obstructive pulmonary disease, unspecified COPD type ([facility]) | + + | H/O cerebral aneurysm [...]
--- OUTSIDE RECORDS SUMMARY | ~2019-10-16 | XMS | Encounter Summary ---
Demographics + + + | Address | [address] | | | [place] [address] | + + + | Home Phone [...] Team Providers + +------+ + | Care Wax Molder Name | Role | Phone | [...] | | | | Loop [facility] | [place], [place] | | | | | [place], [address] floor | [address] | | | | | [place], [place] | [phone] | | | | | [address] | | | | | | [phone] | | | +--------+ + + + [...]
--- OUTSIDE RECORDS SUMMARY | ~2019-10-16 | XMS | Encounter Summary ---
Demographics + + + | Address | [address] | | | [place] [address] | + + + | Home Phone | | + + + | Preferred Language | Unknown | + + + | Marital Status | | + + + | Catholic Affiliation | MET | + + + | Race | White | + + + | Ethnic Group | Not or | + + + Author + + + | Author | [facility] | + + + | Organization | [facility] | + + + | [...] Providers + +------+ + | Care Supervisor Lathing Name | Role | Phone | + +------+ + | Anil Baker DO | PCP | | + +------+ + Reason for Visit + +--------+ + | Reason | Onset | Comments | | | Date | | + +--------+ + | Ct Scan Result | 04/18/ | | | | 2009 | | + +--------+ + Encounter Details +--------+ + + + + | Date | Type | Department | Care Team | Description | +--------+ + + + + | 04/18/ | Telephone | Neurosurgery at | Paramjit Huber MD | Ct Scan Result | | 2009 | | [facility] [address] | [address] | | | | | [facility] | [place], [place] | | | | | [facility], | [address] | | | | | [place] [address] [facility] | [phone] | | | | | [place], [place] | | | | | | [address] | | | | | | [phone] | | | +--------+ + + + [...] Notes Telephone Encounter - Aline Duvall - 04/18/2009 9:25 AM PSTPt had a recent CT scan sent t o our office from [facility] in [place]. Dr. Huber reviewed scan and said ever ything looks great. There are no issues on the scan, she has a possible sinus infection and any ZULUAGA would probably be directly related to that. No need for f/u unless pt starts having i ssues. I will relay this to the patient. documented in this encounter Plan of Treatment Not on filedocumented as of this encounter Visit Diagnoses Not on filedocumented in this encounter"
--- OUTSIDE RECORDS SUMMARY | ~2019-10-16 | XMS | Encounter Summary ---
Demographics + + + | Address | [address] | | | [place] [address] | + + + | Home Phone [...] Team Providers + +------+ + | Care Mold Carrier Name | Role | Phone | + +------+ + | Lance Pandya DO | PCP | | + +------+ + Encounter Details +--------+ + + + + | Date | Type | Department | Care Team | Description | +--------+ + + + + | 05/09/ | Orders Only | [facility] | Louie Hammond, | | | 2017 | | CONVERSION 888 | MD [address] | | | | | [address] | [place], | | | | | [place], [place] | [place] [address] | | | | | [address] | [phone] | | | | | [phone] | | | +--------+ + + + [...] + +--------+ + + + | ECHO INTERPRETATION | Routin | 05/09/2017 | | Results for this | | OF OUTSIDE FILMS | e | 2:12 PM | | procedure are in the | | | | PDT | | results section. | + +--------+ + + + documented in this encounter Results ECHO Interpretation of Outside Films (05/09/2017 2:12 PM PDT) + + | Specimen | + + | | + + + + + | Impressions | Performed At | + + + | 1. This was a technically difficult study with suboptimal | | | parasternal views. 2. Overall left ventricular systolic function is | | | moderately impaired with, an EF between 35 - 40 %. The apical 1/3 of | | | the LV is aneurysmal, akinetic with focal areas of dyskinesis | | | (slightly higher up on the septal side) consistent with CAD. 3. The | | | diastolic filling pattern indicates impaired relaxation consistent | | | with mild dysfunction (Grade I). 4. The right ventricle is normal in | | | size and function. 5. There is mild aortic regurgitation. | | + + + + + + | Narrative | Performed At | + + + | Patient Name: Cielo Bell Date of : 1950 | | | Performing Physician: LOUIE HAMMOND MD | | | | | | INDICATIONS Ischemic dilated cardiomyopathy, COPD | | | CONCLUSIONS 1. This was a technically difficult study | | | with suboptimal parasternal views. 2. Overall left ventricular | | | systolic function is moderately impaired with, an EF between 35 - 40 | | | %. The apical 1/3 of the LV is aneurysmal, akinetic with focal areas | | | of dyskinesis (slightly higher up on the septal side) consistent with | | | CAD. 3. The diastolic filling pattern indicates impaired relaxation | | | consistent with mild dysfunction (Grade I). 4. The right ventricle is | | | normal in size and function. 5. There is mild aortic regurgitation. | | | FINDINGS -------- ECG rhythm: Sinus rhythm. Study: A | | | 2-dimensional transthoracic echocardiogram with m-mode, spectral and | | | color flow Doppler was perfomed. Study: This was a technically | | | difficult study with suboptimal parasternal views. Apical and | | | subcostal views were adequate. Left Ventricle: Overall left | | | ventricular systolic function is moderately impaired with, an EF | | | between 35 - 40 %. Left Ventricle: The left ventricle cavity size is | | | normal. Left Ventricle: Left ventricular wall thickness is normal. | | | Left Ventricle: The diastolic filling pattern indicates impaired | | | relaxation consistent with mild dysfunction (Grade I). Left | | | Ventricle: Aneurysmal, akinetic apical 1/3 of the LV (slightly higher | | | up on the septal side). Left Ventricle: The following regional wall | | | motion abnormalities include: the more distal portion of the Left | | | Ventricle: mid inferoseptal wall is dyskinetic; Left Ventricle: mid | | | anterolateral - severely hypokinetic; Left Ventricle: anterior apex | | | - akinetic; Left Ventricle: apical septum- akinetic; Left | | | Ventricle: inferior apex - akinetic; Left Ventricle: apical lateral - | | | dyskinetic; Left Ventricle: apex - akinetic; distal inferolateral | | | - dyskinetic. Left Ventricle: The remaining left ventricular segments | | | contract normally. Right Ventricle: The right ventricle is normal in | | | size and function. Left Atrium: The left atrium is normal in size. | | | Right Atrium: The right atrium is normal in size. Aortic Valve: The | | | aortic valve was not well visualized. Aortic Valve: There is mild | | | aortic regurgitation. Aortic Valve: The aortic pressure half-time by | | | doppler is 464ms. Aortic Valve: There is no evidence of aortic | | | stenosis. Mitral Valve: The mitral valve is normal. Mitral Valve: | | | There is trace mitral regurgitation. Tricuspid Valve: The tricuspid | | | valve was not well visualized. Tricuspid Valve: Trace tricuspid | | | regurgitation present. Tricuspid Valve: The poor TR signal prevents | | | accurate estimation of pulmonary pressures. Pulmonic Valve: The | | | pulmonic valve was not well visualized. Pericardium: There is no | | | pericardial effusion. IVC/Hepatic Veins: The IVC is normal size | | | (1.5-2.5cm) and collapses >50% with sniff, consistent with central | | | venous pressures of 5-10mmHg. Aorta: Ascending not well seen. Arch | | | images not acquired. Mass: No mass visualized Thrombus: No clot | | | visualized Thrombus: No vegetation visualized. Septum: No ASD | | | observed. Septum: No VSD observed. MEASUREMENTS | | | IVC: 1.55 cm LA Major: 4.17 cm EDV(Teich): 111.98 ml IVSd: | | | 0.77 cm LVIDd: 4.88 cm LVPWd: 0.96 cm LVOT Area: 3.33 | | | cm2 LVOT Diam: 2.06 cm %FS: 25.75 % EF(Teich): 50.53 % | | | ESV(Teich): 55.39 ml LVIDs: 3.62 cm SV(Teich): 56.58 ml RA | | | Major: 3.75 cm LVEF MOD A2C: 42.35 % SV MOD A2C: 35.80 ml | | | LVEF MOD A4C: 40.78 % SV MOD A4C: 39.55 ml EF Biplane: | | | 41.25 % LVEDV MOD BP: 90.61 ml LVESV MOD BP: 53.23 ml LVEDV | | | MOD A2C: 84.52 ml LVLd A2C: 8.76 cm LVEDV MOD A4C: 96.98 ml | | | LVLd A4C: 8.64 cm LVESV MOD A2C: 48.72 ml LVLs A2C: 7.91 | | | cm LVESV MOD A4C: 57.43 ml LVLs A4C: 8.09 cm LAESV(A-L): | | | 33.04 ml LAESV Index (A-L): 22.79 ml/m2 LAAs A2C: 13.62 cm2 | | | LAESV A-L A2C: 34.11 ml LALs A2C: 4.62 cm LAAs A4C: 12.46 | | | cm2 LAESV A-L A4C: 30.24 ml LALs A4C: 4.36 cm RAAs: 9.31 | | | cm2 RAESV A-L: 19.38 ml RAESV MOD: 19.43 ml RALs: 3.79 cm | | | TAPSE: 1.64 cm AR Dec [place]: 1.90 m/s2 AR Dec Time: | | | 1601.02 ms AR maxP.34 mmHg AR PHT: 464.29 ms AR Vmax: | | | 3.05 m/s AV maxP.56 mmHg AV meanP.98 mmHg AV Vmax: | | | 1.77 m/s AV Vmean: 1.13 m/s AV VTI: 29.05 cm ARACELI Vmax: | | | 2.24 cm2 ARACELI (VTI): 2.12 cm2 AVAI Vmax: 0.00 cm2/m2 AVAI | | | (VTI): 0.00 cm2/m2 LVOT maxP.69 mmHg LVOT meanP.05 | | | mmHg LVSI Dopp: 42.59 ml/m2 LVSV Dopp: 61.75 ml LVOT Vmax: | | | 1.19 m/s LVOT Vmean: 0.81 m/s LVOT VTI: 18.51 cm MV A Ozzy: | | | 1.05 m/s MV DecT: 248.72 ms MV E Ozzy: 0.67 m/s MV E/A | | | Ratio: 0.63 MV PHT: 72.12 ms MVA By PHT: 3.05 cm2 Septal | | | e': 0.04 m/s Septal E/e': 16.34 Lateral e': 0.02 m/s | | | Lateral E/e': 31.86 TR maxP.04 mmHg TR Vmax: 1.93 m/s | | | Tenant Relations Coordinator: Authenticated by: LOUIE HAMMOND MD Report | | | Date/Time: 05-09-2017 17:2:54 | | + + + + + | Procedure Note | + + | Manny Cox Conversion - 10/12/2018 4:45 PM PDT Patient Name: Jada Bell of | | : 1950 Performing Physician: LOUIE HAMMOND, | | MD INDICATIONS I | | schemic dilated cardiomyopathy, COPD CONCLUSIONS 1. This was a technically | | difficult study with suboptimal parasternal views.2. Overall left ventricular systolic | | function is moderately impaired with, an EF between 35 - 40 %. The apical 1/3 of the LV | | is aneurysmal, akinetic with focal areas of dyskinesis (slightly higher up on the | | septal side) consistent with CAD.3. The diastolic filling pattern indicates impaired | | relaxation consistent with mild dysfunction (Grade I).4. The right ventricle is normal | | in size and function.5. There is mild aortic regurgitation. FINDINGS--------ECG rhythm: | | Sinus rhythm.Study: A 2-dimensional transthoracic echocardiogram with m-mode, spectral | | and color flow Doppler was perfomed.Study: This was a technically difficult study with | | suboptimal parasternal views. Apical and subcostal views were adequate.Left Ventricle: | | Overall left ventricular systolic function is moderately impaired with, an EF between 35 | | - 40 %.Left Ventricle: The left ventricle cavity size is normal.Left Ventricle: Left | | ventricular wall thickness is normal.Left Ventricle: The diastolic filling pattern | | indicates impaired relaxation consistent with mild dysfunction (Grade I).Left Ventricle: | | Aneurysmal, akinetic apical 1/3 of the LV (slightly higher up on the septal side).Left | | Ventricle: The following regional wall motion abnormalities include: the more distal | | portion of theLeft Ventricle: mid inferoseptal wall is dyskinetic;Left Ventricle: mid | | anterolateral - severely hypokinetic;Left Ventricle: anterior apex - akinetic;Left | | Ventricle: apical septum- akinetic;Left Ventricle: inferior apex - akinetic;Left | | Ventricle: apical lateral - dyskinetic;Left Ventricle: apex - akinetic; distal | | inferolateral - dyskinetic.Left Ventricle: The remaining left ventricular segments | | contract normally.Right Ventricle: The right ventricle is normal in size and | | function.Left Atrium: The left atrium is normal in size.Right Atrium: The right atrium | | is normal in size.Aortic Valve: The aortic valve was not well visualized.Aortic Valve: | | There is mild aortic regurgitation.Aortic Valve: The aortic pressure half-time by | | doppler is 464ms.Aortic Valve: There is no evidence of aortic stenosis.Mitral Valve: The | | mitral valve is normal.Mitral Valve: There is trace mitral regurgitation.Tricuspid | | Valve: The tricuspid valve was not well visualized.Tricuspid Valve: Trace tricuspid | | regurgitation present.Tricuspid Valve: The poor TR signal prevents accurate estimation | | of pulmonary pressures.Pulmonic Valve: The pulmonic valve was not well | | visualized.Pericardium: There is no pericardial effusion.IVC/Hepatic Veins: The IVC is | | normal size (1.5-2.5cm) and collapses >50% with sniff, consistent with central venous | | pressures of 5-10mmHg.Aorta: Ascending not well seen. Arch images not acquired.Mass: No | | mass visualizedThrombus: No clot visualizedThrombus: No vegetation visualized.Septum: No | | ASD observed.Septum: No VSD observed. MEASUREMENTS IVC: 1.55 cmLA Major: | | 4.17 cmEDV(Teich): 111.98 mlIVSd: 0.77 cmLVIDd: 4.88 cmLVPWd: 0.96 cmLVOT | | Area: 3.33 [id number] Diam: 2.06 cm%FS: 25.75 %EF(Teich): 50.53 %ESV(Teich): | | 55.39 mlLVIDs: 3.62 cmSV(Teich): 56.58 mlRA Major: 3.75 cmLVEF MOD A2C: 42.35 | | %SV MOD A2C: 35.80 mlLVEF MOD A4C: 40.78 %SV MOD A4C: 39.55 mlEF Biplane: 41.25 | | %LVEDV MOD BP: 90.61 mlLVESV MOD BP: 53.23 mlLVEDV MOD A2C: 84.52 mlLVLd A2C: | | 8.76 cmLVEDV MOD A4C: 96.98 mlLVLd A4C: 8.64 cmLVESV MOD A2C: 48.72 mlLVLs A2C: | | 7.91 cmLVESV MOD A4C: 57.43 mlLVLs A4C: 8.09 cmLAESV(A-L): 33.04 mlLAESV Index | | (A-L): 22.79 ml/m2LAAs A2C: 13.62 [id number] A-L A2C: 34.11 mlLALs A2C: 4.62 | | cmLAAs A4C: 12.46 [id number] A-L A4C: 30.24 mlLALs A4C: 4.36 cmRAAs: 9.31 [id number] | | A-L: 19.38 mlRAESV MOD: 19.43 mlRALs: 3.79 cmTAPSE: 1.64 cmAR Dec [place]: 1.90 | | m/s2AR Dec Time: 1601.02 msAR maxP.34 mmHgAR PHT: 464.29 msAR Vmax: 3.05 | | m/Andrea maxP.56 mmHgAV meanP.98 mmHgAV Vmax: 1.77 m/Andrea Vmean: 1.13 m/Andrea | | VTI: 29.05 cmAVA Vmax: 2.24 cm2AVA (VTI): 2.12 [id number] Vmax: 0.00 cm2/m2AVAI | | (VTI): 0.00 cm2/m2LVOT maxP.69 mmHgLVOT meanP.05 mmHgLVSI Dopp: 42.59 | | ml/m2LVSV Dopp: 61.75 mlLVOT Vmax: 1.19 m/sLVOT Vmean: 0.81 m/sLVOT VTI: 18.51 | | cmMV A Ozzy: 1.05 m/sMV DecT: 248.72 msMV E Ozzy: 0.67 m/sMV E/A Ratio: 0.63MV | | PHT: 72.12 msMVA By PHT: 3.05 [id number] e': 0.04 m/sSeptal E/e': 16.34Lateral | | e': 0.02 m/sLateral E/e': 31.86TR maxP.04 mmHgTR Vmax: 1.93 m/s | | Tenant Relations Coordinator:Authenticated by: Ash WALKER Date/Time: 05-09-2017 17:2:54 | | IMPRESSION: 1. This was a technically difficult study with suboptimal parasternal | | views.2. Overall left ventricular systolic function is moderately impaired with, an EF | | between 35 - 40 %. The apical 1/3 of the LV is aneurysmal, akinetic with focal areas of | | dyskinesis (slightly higher up on the septal side) consistent with CAD.3. The diastolic | | filling pattern indicates impaired relaxation consistent with mild dysfunction (Grade | | I).4. The right ventricle is normal in size and function.5. There is mild aortic | | regurgitation. | |LA Major: 4.17 cm | |EDV(Teich): 111.98 ml | |IVSd: 0.77 cm | |LVIDd: 4.88 cm | |LVPWd: 0.96 cm | |LVOT Area: 3.33 cm2 | |LVOT Diam: 2.06 cm | |%FS: 25.75 % | |EF(Teich): 50.53 % | |ESV(Teich): 55.39 ml | |LVIDs: 3.62 cm | |SV(Teich): 56.58 ml | |RA Major: 3.75 cm | |LVEF MOD A2C: 42.35 % | |SV MOD A2C: 35.80 ml | |LVEF MOD A4C: 40.78 % | |SV MOD A4C: 39.55 ml | |EF Biplane: 41.25 % | |LVEDV MOD BP: 90.61 ml | |LVESV MOD BP: 53.23 ml | |LVEDV MOD A2C: 84.52 ml | |LVLd A2C: 8.76 cm | |LVEDV MOD A4C: 96.98 ml | |LVLd A4C: 8.64 cm | |LVESV MOD A2C: 48.72 ml | |LVLs A2C: 7.91 cm | |LVESV MOD A4C: 57.43 ml | |LVLs A4C: 8.09 cm | |LAESV(A-L): 33.04 ml | |LAESV Index (A-L): 22.79 ml/m2 | |LAAs A2C: 13.62 cm2 | |LAESV A-L A2C: 34.11 ml | |LALs A2C: 4.62 cm | |LAAs A4C: 12.46 cm2 | |LAESV A-L A4C: 30.24 ml | |LALs A4C: 4.36 cm | |RAAs: 9.31 cm2 | |RAESV A-L: 19.38 ml | |RAESV MOD: 19.43 ml | |RALs: 3.79 cm | |TAPSE: 1.64 cm | |AR Dec [place]: 1.90 m/s2 | |AR Dec Time: 1601.02 ms | |AR maxP.34 mmHg | |AR PHT: 464.29 ms | |AR Vmax: 3.05 m/s | |AV maxP.56 mmHg | |AV meanP.98 mmHg | |AV Vmax: 1.77 m/s | |AV Vmean: 1.13 m/s | |AV VTI: 29.05 cm | |ARACELI Vmax: 2.24 cm2 | |ARACELI (VTI): 2.12 cm2 | |AVAI Vmax: 0.00 cm2/m2 | |AVAI (VTI): 0.00 cm2/m2 | |LVOT maxP.69 mmHg | |LVOT meanP.05 mmHg | |LVSI Dopp: 42.59 ml/m2 | |LVSV Dopp: 61.75 ml | |LVOT Vmax: 1.19 m/s | |LVOT Vmean: 0.81 m/s | |LVOT VTI: 18.51 cm | |MV A Ozzy: 1.05 m/s | |MV DecT: 248.72 ms | |MV E Ozzy: 0.67 m/s | |MV E/A Ratio: 0.63 | |MV PHT: 72.12 ms | |MVA By PHT: 3.05 cm2 | |Septal e': 0.04 m/s | |Septal E/e': 16.34 | |Lateral e': 0.02 m/s | |Lateral E/e': 31.86 | |TR maxP.04 mmHg | |TR Vmax: 1.93 m/s | | | |Tenant Relations Coordinator: | |Authenticated by: LOUIE HAMMOND MD | |Report Date/Time: 05-09-2017 17:2:54 | | | |IMPRESSION: | |1. This was a technically difficult study with suboptimal parasternal views. | |2. Overall left ventricular systolic function is moderately impaired with, an EF between 35 - 40 %. The apical 1/3 of the LV is aneurysmal, akinetic with focal areas of dyskinesis (s lightly higher up on the septal side) consistent with CAD. | |3. The diastolic filling pattern indicates impaired relaxation consistent with mild dysfunc tion (Grade I). | |4. The right ventricle is normal in size and function. | |5. There is mild aortic regurgitation. | + + documented in this encounter Visit Diagnoses Not on filedocumented in this encounter"
--- OUTSIDE RECORDS SUMMARY | ~2019-10-16 | XMS | Encounter Summary ---
Demographics + + + | Address | [address] | | | [place] [address] | + + + | Home Phone [...] Team Providers + +------+ + | Care Neurology Director Name | Role | Phone | [...] | Ave | | | | | LA REPAIR | [facility] | [place], [place] | | | | | SKULL | [address] | [address] | | | | | DEFECT,UP TO | [place], [place] | Phone: | | | | | [address] | [address] | [phone] | | | | | | Phone: | Fax: | | | | | | [phone] | [phone] | | | | | | Fax: | | | | | | | [phone] | | +--------+--------+ + + + + [...] | hemorrhage) (HCC) | | | | [facility] | [facility] [address] | (Primary Dx); Acute | | | | [facility], | [place], [place] | osteomyelitis of | | | | Building | [address] | cranium (HCC) | | | | floor [place], [place] | [phone] | | | | | [address] | | | | | | [phone] | | | +--------+---------+ + + + [...] year old female with hx of CAD, NH s/p st ent on ASA/Plavix, HTN, nicotine use, and neurosurgical history remarkable for 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 She denies any problems with the [...] neoplasm of major salivary glands CAD in [place] artery s/p NSTEMI 12/27/2014; status post stent placement in the mid LAD Chronic pain Continuous tobacco abuse COPD on oxygen at night CVA (cerebral vascular accident) ([facility]) 2007 Essential hypertension GERD (gastroesophageal reflux disease) Goiter MRSA (methicillin resistant staph aureus) culture positive post cariotomy for SAH Otitis media recent abx preadmit Subarachnoid hemorrhage due to ruptured aneurysm ([facility]) 2007 Tobacco dependence acetaminophen 325 mg oral [...] 2) Contact our office or present to [facility] Emergency Department for severe headache not rel [...] Will plan for patient to return to [facility] when appropriate to consider cranioplasty (syn thes). Appreciate Dr White's assistance with management of right cranial flap eschar as well a s skin/flap coverage when time to consider cranioplasty. [facility] [address] Mailcode: [email or web address] [address] Addendum: Dr Diego would like a CT wwo contrast in follow up of infection. She does have history of rash/urticaria following betadine use (which contains iodine). Discussed pre-sheila tment with prednisone and Ms Bell would like to proceed with prednisone and CT. She would like order for CT to go to [facility] in [place], [place]. Will order external scan t hat [...] | + + | SAH (subarachnoid hemorrhage) ([facility]) - Primary Subarachnoid hemorrhage | + + | Acute osteomyelitis of cranium (HCC) | + + documented in this encounter"
--- OUTSIDE RECORDS SUMMARY | ~2019-10-16 | XMS | Encounter Summary ---
Demographics + + + | Address | [address] | | | [place] [address] | + + + | Home Phone [...] Team Providers + +------+ + | Care Yarding Supervisor Name | Role | Phone | [...] | | | | | | | [address] | | | | | | | [id number] | | | | | | | [facility] | | | | | | | [place], | | | | | | | [place] [address] | | | | | | | Phone: | | | | | | | [phone] | +--------+--------+ + + + + Encounter Details +--------+ + + + + | Date | Type | Department | Care Team | Description | +--------+ + + + + | 05/13/ | Hospital | [facility] [address] | Paramjit Huber MD | | | 2008 - | Encounter | [address] | [address] | | | | | [id number] [facility] | [place], [place] | | | 05/14/ | | HOSPITAL [place], | [address] | | | 2008 | | [place] [address] | [phone] | | | | | [phone] | | | +--------+ + + + [...] s and received VPS 04/12/08. Principal Procedure: PHARMACEUTICAL SALES SPECIALIST shunt tap Additional Procedures: Observation Hospital Course: [...] s and received VPS 04/12/08. Principal Procedure: PHARMACEUTICAL SALES SPECIALIST shunt tap Additional Procedures: Observation Reason for [...] call and ask for the Neurosurgery resident fish conservationist if you have any of the following: [...] follow-up appointment with Dr. Huber at the [facility] on the 8th floor of the [facility]: Please call to make or confirm your [...] extremitiy flexors and extensors as well as pot puncher and intrinsic muscles of the hand, 5/5 [...] Attending: MD ALLI Woods MD [place] [address] [address] INPATIENT NURSE ORDER FOR DISCHARGE AND INTERDISCIPLINARY [...] Mode of Transportation: Car Accompanied by: Family/Responsible [employer] Name: (when applicable) Phone #: [...] ML, palate symmetric Motor Bi Tri Delt Software Engineer Sales Wfl WEx Hfl Hex Lfl Dajuan Dfl [...] are indicated. Patient independent with ambulating to [facility], transferring on/off toilet, and is at baseline for ADLs. No OT eval intitiated. NISREEN CRAIN OT [facility] [address] [id number] [place] [address] can - Jared Liuul ty - 05/14/2008 12:36 PM PDT Scan - Noe, Faculty - 05/14/2008 12:36 PM PDT Plan of Care - Valerie Bowden - 05/14/2008 10:12 AM PDTPT Note: Chart reviewed. Spoke with guillaume kenyetta nd , patient currently without mobility deficits, both feel [facility] and she will resune outpatient services when she gets home. Will sign off . [place] [id number] signed by Valerie Bowden at 05/14/2008 10:13 AM PDTPlan of Care - Sonali Louis - 05/14/2008 7:47 AM PDTProblem: Case Managment Goals Goal: Discharge Needs Met 58 yr old female admitted s/p 05/10 PHARMACEUTICAL SALES SPECIALIST shunt placement for s/s possible shunt/wound infectio ns. Awaiting results of CSF cx, plan for possible OR for shunt removal/IV abx. [place] lives [place] spouse. Case mgt to follow for dc needs. [id number] [id number] documented in this encounter Plan of Treatment [...] | + + + + + | [facility] | [address] [facility] | [place] [address] | | | PATHOLOGY | [address] | | | + + + + + | [facility] | [address] [place] [address] | [place] [address] | | | PATHOLOGY | [address] [...] | + + + + + | [facility] | [address] [place] [address] | [place] [address] | | | PATHOLOGY | [address] | | | + + + + + | [facility] | [address] [place] [address] [address] | [place] [address] | | | PATHOLOGY | [address] [...] + + + | [facility] DEPARTMENT OF | [address] | [place] [address] | | | PATHOLOGY | [address] | | | + + + + + | [facility] DEPARTMENT OF | [address] | [place] [address] | | | PATHOLOGY | [address] [...] + + + | [facility] DEPARTMENT OF | [address] | [place] [address] | | | PATHOLOGY | [address] | | | + + + + + | [facility] DEPARTMENT OF | [address] | [place], [place] [address] | | | PATHOLOGY | [address] [...] DEPARTMENT OF | [address] | [place] [address] | | | PATHOLOGY | [address] | | | + + + + + | [facility] DEPARTMENT OF | [address] [facility] | [place] [address] | | | PATHOLOGY | [address] [...] | DEPARTMENT | | | | Processing:Ext [id number] | | OF | | | | [...] DEPARTMENT OF | [address] | [place] [address] | | | PATHOLOGY | [address] | | | + + + + + | [facility] DEPARTMENT OF | [address] | [place] [address] | | | PATHOLOGY | [address] [...] + + + | [facility] DEPARTMENT OF | [address] | [place] [address] | | | PATHOLOGY | [address] | | | + + + + + | [facility] DEPARTMENT OF | [address] | [place] [address] | | | PATHOLOGY | [address] [...] DEPARTMENT OF | [address] | [place] [address] | | | PATHOLOGY | [address] | | | + + + + + | [facility] DEPARTMENT OF | [address] | [place] [address] | | | PATHOLOGY | [address] [...] DEPARTMENT OF | [address] | [place] [address] | | | PATHOLOGY | [address] | | | + + + + + | [facility] DEPARTMENT | [address] | [place] [address] | | | PATHOLOGY | [address] [...] DEPARTMENT OF | [address] | [place] [address] | | | PATHOLOGY | [address] | | | + + + + + | [facility] DEPARTMENT OF | [address] | [place] [address] | | | PATHOLOGY | [address] [...] + + + | [facility] DEPARTMENT OF | [address] | [place] [address] | | | PATHOLOGY | [address] | | | + + + + + | [facility] DEPARTMENT OF | [address] | [place] [address] | | | PATHOLOGY | [address] [...] DEPARTMENT OF | [address] | [place] [address] | | | PATHOLOGY | [address] | | | + + + + + | [facility] DEPARTMENT OF | [address] | [place] [address] | | | PATHOLOGY | [address] [...] | + + + + + | [facility] | [facility] | [place] [address] | | | PATHOLOGY | [address] | | | + + + + + | [facility] DEPARTMENT OF | [facility] | [place] [address] | | | PATHOLOGY | [address] [...] | + + + + + | [facility] | [address] [facility] | [place] [address] | | | PATHOLOGY | [address] | | | + + + + + | [facility] | [facility] [facility] | [place] [address] | | | PATHOLOGY | [address] [...] | | | | | | [facility]. Culture: | | | | | | [...] | + + + + + | [facility] | [address] | [place] [address] | | | LAB-MICRO | | | [...]
--- OUTSIDE RECORDS SUMMARY | ~2019-10-16 | XMS | Encounter Summary ---
Demographics + + + | Address | [address] | | | [place] [address] | + + + | Home Phone [...] Team Providers + +------+ + | Care Research Associate Professor Name | Role | Phone | + +------+ + | Mary Vazquez PA-C | PCP | | + +------+ + Encounter Details +--------+ + + + + | Date | Type | Department | Care Team | Description | +--------+ + + + + | 09/14/ | Procedure | [address] Op [address] | | | | 2019 | Pass | [address] | | | | | | Rd [facility] | | | | | | Hospital Admitting | | | | | | Desk Located on the | | | | | | 9th floor | | | | | | [place], [place] | | | | | | [address] | | | +--------+ + + + [...]
--- OUTSIDE RECORDS SUMMARY | ~2019-10-16 | XMS | Encounter Summary ---
Demographics + + + | Address | [address] | | | [place] [address] | + + + | Home Phone [...] Team Providers + +------+ + | Care Technical Sales Representatives Name | Role | Phone | + [...]
--- OUTSIDE RECORDS SUMMARY | ~2019-10-16 | XMS | Encounter Summary ---
Demographics + + + | Address | [address] | | | [place] [address] | + + + | Home Phone [...] Team Providers + +------+ + | Care Elastic Attacher Zigzag Name | Role | Phone | + +------+ + | Remington Camacho MD | PCP | | + +------+ + Encounter Details +--------+ + + + + | Date | Type | Department | Care Team | Description | +--------+ + + + + | 02/25/ | Documentati | Neurosurgery at | [facility], | | | 2016 | on | [facility] [address] | MD [address] | | | | | Ave [facility] | [address] | | | | | Health and Healing, | [place], [place] | | | | | Building | [address] | | | | | floor [place], [place] | [phone] | | | | | [address] | | | | | | [phone] | | | +--------+ + + + [...]
--- OUTSIDE RECORDS SUMMARY | ~2019-10-16 | XMS | Encounter Summary ---
Demographics + + + | Address | [address] | | | [place] [address] | + + + | Home Phone [...] Team Providers + +------+ + | Care Physical Medicine Teacher Name | Role | Phone | [...] | | | unspecified | | Rd [facility], | | | | | | | [place] | | | | | | | [address] | | | | | | | Phone: | | | | | | | [phone] | | | | | | | Fax: | | | | | | | [phone] | +--------+--------+ + + + + Encounter [...] | | | | Loop Physician's | [facility], [place] | Encounter for | | | | Pavilion, 3rd floor | [address] | long-term (current) | | | | [place], [place] | [phone] | use of antibiotics | | | | [address] | | | | | | [phone] | | | +--------+---------+ + + + [...] scribe for Shabana Bower who is a Train Attendant Real Estate Photographer. I have reviewed and verified the informa tion that I'm entering for this patient is accurate. 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 Female with CAD s/p AK, HTN, SAH s/p right pterional c raniotomy [...] I reviewed the history from the patient's [facility] admiss ion, including but not limited to all pertinent ID consultation notes, surgical procedures & findings, culture results & lab tests, pathology reports, case management notes, and the [facility] discharge summary. History: 67 y/o F with CAD s/p AK, HTN, SAH s/p right pterional craniotomy for clipping (09/2007) c/b hydrocephalus treated by a right frontal VPS (03/2008) and synthetic cranioplasty for eroded hardwarein 10/2015. 12/03 presented with a week of increasing headache and purulent draina ge from the cranioplasty site with wound dehiscence, and on 12/06/17 underwent removal of cr anioplasty and STEELSCOPE OPERATOR shunt as well as washout or epidural [...] new allergic reactions have been noted today. [place] tar; Betadine [povidone-iodine (with soap)]; Cipro [ciprofloxacin]; [...] postsurgical changes of right frontal cranioplasty and STEELSCOPE OPERATOR shunt removal without ac paimiut intracranial abnormality. Fluid and gas collection in the cranioplasty bed is unchanged. Stable bifrontal encephalomalacia. Saskia Nicolas MD INFECTIOUS DISEASES AT [facility] 3RD FLOOR [address] [facility] Mailcode: [address] [place] [address] documented in this enc ounter Plan of Treatment Not on filedocumented as of this encounter Visit Diagnoses + + | Diagnosis | + + | Acute osteomyelitis of cranium (HCC) - Primary | + + | Encounter for long-term (current) use of antibiotics | + + documented in this encounter
--- OUTSIDE RECORDS SUMMARY | ~2019-10-16 | XMS | Encounter Summary ---
Demographics + + + | Address | [address] | | | [place] [address] | + + + | Home Phone [...] Team Providers + +------+ + | Care Workgroup Leader Name | Role | Phone | + [...] + + | 08/09/ | Telephone | [facility] | Chana Luu, | Other (plan of care) | | 2016 | | CARDIOLOGY [address] | MD [address] | | | | | [place], | [place] | | | | | [place] [address] | [address] | | | | | [phone] | | | +--------+ + + + [...] 9:21 AM PDTReferral created (see referra l #[id number] for updates). el ephone Encounter - Lucille Costa RN - 08/09/2016 2:21 PM PDTShhelena notified. I will as k PSR's to please start the referral and send records as needed. Diagnosis of CAD, ischemic cardiomyopathy, abnormal stress test. Should be referral to oracle application consultant at [facility] ...........................................Lucille Costa RN on 08/09/16 at 14:21El ectronically signed by Lucille Costa RN at 08/09/2016 2:22 PM PDTTelephone Encounter - Tom piotrLucille RN - 08/09/2016 2:19 PM PDTIncrease the Lipitor to 40 mg a day and [facility] elephone Encounter - Lucille Costa RN - 08/09/2016 11:41 AM PDTSheryl picked up during leaving message. She states that she is already on the lipitor 20mg that she jus t started per Dr Luu, she would like to know if she should increase it to 40mg. She is willing to go to [facility]. I will consult Dr Luu about [...] would need t o send her to [facility]. Maybe she would prefer to have the angiogram done there? Switch Pravachol to Lipitor 40 mg a day. The lipid is not well controlled. Recheck lipid in 3 months. Bell Tdocumented in this encounter Plan of Treatment Not on filedocumented as of this encounter Visit Diagnoses Not on filedocumented in this encounter"
--- OUTSIDE RECORDS SUMMARY | ~2019-10-16 | XMS | Encounter Summary ---
Demographics + + + | Address | [address] | | | [place] [address] | + + + | Home Phone [...] Team Providers + +------+ + | Care Fact Checker Name | Role | Phone | + +------+ + | Remintgon Camacho MD | PCP | | + [...] | | Surgery | Other | MD Rickie | MD Paramjit | | | | | specified | [address] | [address] | | | | | complication | [address] | Ave | | | | | of internal | Rd | [place], [place] | | | | | prosthetic | [facility] [place] | [address] | | | | | devices, | [address] | Phone: | | | | | implants and | Phone: | [phone] | | | | | grafts, not | [phone] | Fax: | | | | | elsewhere | Fax: | [phone] | | | | | classified, | [phone] | | | | | | initial | | | | | | | encounter | | | | | | | Procedures | | | | | | | REQUEST TO | | | | | | | SURGERY | | | | | | | HULL MOLDER | | | | | | | SC REMOVAL | | | | | | [...] | implanted material | | | | [facility] for | | to surrounding | | | | Health and Healing, | | tissue (HCC) | | | | Building | | (Primary Dx) | | | | floor [place], [place] | | | | | | [address] | | | | | | [phone] | | | +--------+---------+ + + + [...] 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 She tolerated that well. 2 months ago, one of the cranioplasty screws in the fo rehead, broke through the skin. It is not infected but it has to be removed due to risk or i nfection. But she had an [place] 2 weeks ago, she had 2 coronary stents placed and is on Plavix a nd aspirin. On the other hand this procedure requires only sedation and local anaesthetic an d is fairly short procedure. We will discuss this with her improvement specialist, Dr Chana Luu at [facility] in [facility]. And she will also be seen in our [facility] clinic by an M D. Plan: Contact Dr Luu to discuss the periop management of this patient Schedule Surgery for removal of exposed screw of the forehead under local anaesthesia and s eadation I spent 30 minutes with the patient. Greater than 50% of the time was spent counseling the patient regarding the management plan. Rickie Lane MD NEUROSURGERY AT [facility] [address] Mailcode: [place] [id number] documented in this encou nter Plan of [...]
--- OUTSIDE RECORDS SUMMARY | ~2019-10-16 | XMS | Encounter Summary ---
Demographics + + + | Address | [address] | | | [place] [address] | + + + | Home Phone [...] Team Providers + +------+ + | Care Fashion Patternmaker Name | Role | Phone | + [...] + + | 10/22/ | Hospital | [facility] [address] | Magnolia Diego MD | | | 2016 - | Encounter | [address] | [address] | | | | | [id number] [facility] | [place], [place] | | | 10/24/ | | [facility], | [address] | | | 2015 | | [place] [facility] | [phone] | | | | | [phone] | | | +--------+ + + + [...] of major salivary glands Goiter CAD in [place] artery Comment:s/p NSTEMI 12/27/2014; status post stent [...] shortly before that appointment she suffered an AL and was placed on aspirin and Plavix [...] 11/07/2015 11:30 AM NSG FELLOW Neurosurgery at [facility] Destination: Destination: Home Condition on Discharge Good Future Appointments Provider [facility] [place] 11/07/2015 11:30 AM NSG FELLOW Neurosurgery at [facility] [phone] Neurosurgery Warning Symptoms and Signs If you [...] clinic hours, M-F 7:30-4:30 pm, please call [phone] or after hours call Neurosu rgery resident at [phone] Pain Medications DO NOT restart plavix until [...] Physician: MD Piotr Woods MD Neurosurgery Resident [id number] documented in this encou nter Progress Notes Frances Mcfadden PA - 10/24/2015 11:58 AM PDTFormatting of this note might be differen t from the original. . Neuroscience Intensive Care Unit Team Progress Note NSICU ASSIGNED #[id number] Admission dx: m95.2 1 Days in ICU 1 Days in Hospital Abbreviated HPI / Daily Assessment Cielo Bell is a 65 y/o F smoker w/ hx COPD, CAD w/ AL s/p Stents in Dec 2014, with hx [...] treatment team members Provider Role Ipt Neurosurgery #[id number] Treatment Team Ipt Critical Care Nsicu #[id number] Treatment Team Patient Lines/Drains/Airways Status Active Lines, [...] availabl e. Date of Service: 10/24/2015 ANSON Chatetrjee EPIC DEPARTMENT: ANE ICU NEURO Place of Service:- Inpatient CSN: [id number] Suggested Modifier: None Suggested CPT: TO OFFLINE EDITOR ANSON Irvin Author:ANSON Chatterjee [address] [place] [address] Jerzy Saez MD - 10/24/2015 10:36 AM PDT . Neuroscience Intensive Care Unit Attending Progress Note Attending Pager #[phone] Hospital admission dx: m95.2 1 Days in ICU 1 Days in Hospital Abbreviated HPI / Daily Assessment Cielo Bell is a 65 y/o F smoker w/ hx COPD, CAD w/ AL s/p Stents in Dec 2014, with hx [...] treatment team members Provider Role Ipt Neurosurgery #[id number] Treatment Team Ipt Critical Care Nsicu #[id number] Treatment Team The Advanced Care Note for [...] and the recent imaging available. Seen with PA/NCR OPERATOR Ashish Mcfadden. Please see their note for details. I reviewed the documented findings, all data and the recent imaging available. Date of Service: 10/24/2015 Author:Jerzy Centeno MD [address] [place] [address] Tommie Connelly - 03/2015 4:28 AM PDT [...] RLB Gram Stain...........: Gram smear performed at [facility]. Culture: Final Report: No growth [...] shortly before that appointment she suffered an AL and was placed on aspirin and Plavix [...] prior to discharge Please page adult resident market relationship manager [phone] with questions Tommie Bliss MD, PhD PGY-2, [...] DO Skull Base Fellow Department of Neurosurgery [facility] Georgia Rosado MD - 10/23/2015 7:16 PM PDTFormatting of this note might be different fro clover the original. . Neuroscience Intensive Care Unit Attending Progress Note Attending Pager #[phone] Hospital admission dx: m95.2 Days in ICU Days in Hospital Abbreviated HPI / Daily Assessment Cielo Bell is a 65 y/o F smoker w/ hx COPD, CAD w/ AL s/p Stents in Dec 2014, with hx [...] treatment team members Provider Role Ipt Neurosurgery #[id number] Treatment Team Ipt Critical Care Nsicu #[id number] Treatment Team The Advanced Care Note for [...] EPIC DEPARTMENT: ANE ICU NEURO Place of Service:13324- Inpatient CSN: [id number] Suggested Modifier: None Suggested CPT: TO OFFLINE EDITOR Author:Georgia Rosado MD [address] [place] [address] Cammie Maria MD - 10/22 10:35 AM [...] in bed Cammie Ramos MD Neurosurgery PGY2 [id number] documented in this encounte r H&P Notes Jerzy Centeno MD - 10/23/2015 4:36 PM PDTFormatting of this note might be different fr om the original. . Neuroscience Intensive Care Unit Attending H&P Note Attending Pager #[phone] Admission dx: m95.2 Days in ICU Days in Hospital HPI Cielo Bell is a 65 y/o F smoker w/ hx COPD, CAD w/ AL s/p Stents in Dec 2014, with hx of rupture Acomm aneurysm s/p clipping in 2007. 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 She was seen in neurosurgery clinic for follow up in Dec 2014 sh ortly after her AL. At that clinic appt 12/2014, she was noted to have a Right frontal scre w protrusion. Due to her recent AL and bare metal stent placement, she was [...] thrombosis. Restart home metop and pravastatin. O2 ND N at night. Regular diet, SCDs. Should [...] treatment team members Provider Role Ipt Neurosurgery #[id number] Treatment Team Ipt Critical Care Nsicu #[id number] Treatment Team This patient does not have [...] and the recent imaging available. Seen with PA/NCR OPERATOR Ephraim Mcfadden. Please see their note for details. I reviewed the documented findings, all data and the recent imaging available. Date of Service: 10/23/2015 Author:Jerzy Centeno MD [address] [address] Frances Baldwin PA - 10/23/2015 4:08 PM PDT . Neuroscience Intensive Care Unit Team H&P Note NSICU ASSIGNED #[id number] Days in ICU Days in Hospital POD#0 s/p R synthetic cranioplasty Admitting Provider: MAGNOLIA DIEGO Ray is a 65 y/o F smoker w/ hx COPD, CAD w/ AL s/p Stents in Dec 2014, with hx of rupture Acomm aneurysm s/p clipping in 2007. 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 She was seen in neurosurgery clinic for follow up in Dec 2014 sh ortly after her AL. At that clinic appt 12/2014, she was noted to have a Right frontal scre w protrusion. 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 CAD in [place] artery s/p NSTEMI 12/27/2014; status post stent placement in the mid LAD Abnormal LFTs (liver function tests) MRSA (methicillin resistant staph aureus) culture positive post cariotomy for SAH Continuous tobacco abuse Past Surgical History Procedure Laterality Date Partial thyroidectomy Right Hysterectomy Cholecystecomy Bladder suspension 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 [employer] shunt Tympanoplasty Right 1987 Lumpectomy of left breast 1979 Coronary stent placement 12/28/2014 status post stent placement in the mid LAD Allergies Allergen Reactions [place] Tar Hives Betadine [Povidone-Iodine (With Soap)] Unknown [...] treatment team members Provider Role Ipt Neurosurgery #[id number] Treatment Team Ipt Critical Care Nsicu #17596 Treatment Team Patient Lines/Drains/Airways Status Active Lines, [...] e. Date of Service: 10/23/2015 ANSON Chatterjee [facility] DEPARTMENT: ANE ICU NEURO Place of Service:- Inpatient CSN: [id number] Suggested Modifier: None Suggested CPT: TO OFFLINE EDITOR ANSON Irvin Author:ANSON Chatterjee [address] [email or web address] signed by ANSON Irvin at 10/23/2015 5:38 [...] Allergies reviewed / updated Allergies Allergen Reactions [place] Tar Hives Betadine [Povidone-Iodine (With Soap)] Unknown [...] of major salivary glands Goiter CAD in [place] artery s/p NSTEMI 12/27/2014; status post stent placement in the mid LAD Abnormal LFTs (liver function tests) MRSA (methicillin resistant staph aureus) culture positive post cariotomy for SAH Past surgery reviewed and updated Past Surgical History Procedure Date Partial thyroidectomy Hysterectomy Cholecystecomy Bladder suspension 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 [employer] shunt Tympanoplasty 1987 Lumpectomy of left breast [...] Alert and appropriate; nl affect. alert Findings: Career Orientation Teacher nial nerves 2-12 intact, Motor 5/5 strength [...] to this patient's care. Mable Lee MD [facility] 4TH FLOOR DAY STAY [address] [...] ice: 10/23/2015 Attending Surgeon: Magnolia Diego MD Radiology Clerk(s): Antoinette Del Valle MD, PhD Dameon Scanlon [...] shortly before that appointment she suffered an AL and was placed on as pirin and [...] br ought to the operating room on [facility]. She was sedated and intubated without diffi [...] Antoinette Adkins MD, PhD MD XI Woods/NGUYEN /[id number] I, Dr. Magnolia Diego, was the primary surgeon and in the OR during the critical portions of this procedure. There was no complication. Magnolia Diego MD [facility] 7C NSI [address]/[place] [address] rause, Antoinette Gomez MD,PhD - 10/23/2015 10:08 [...] manipulated Disposition: PACU, cooper Antoinette Adkins MD,PhD [id number] signed by Magnolia Diego MD at 10/24/2015 [...] to be able to sleep tonight (10/24/152039) [facility] IP NURSE HANDOFF: Nesbitt hospital course events: Cielo Bell is a 65 y/o F smoker w / hx COPD, CAD w/ AL s/p Stents in Dec 2014, with hx of rupture Acomm aneurysm s/p clipping in 2007. 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 She was seen i neurosurgery clinic for follow up in Dec 2014 shortly after her AL. At that clinic appt , she was noted to have a Right frontal screw protrusion. Due to her recent AL and bare metal stent placement, she was [...] Goal: go out and smoke (10/24/15 1506) [facility] IP NURSE HANDOFF: Nesbitt hospital course events: Cielo Bell is a 65 y/o F smoker w / hx COPD, CAD w/ AL s/p Stents in Dec 2014, with hx of rupture Acomm aneurysm s/p clipping in 2007. 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 She was seen i neurosurgery clinic for follow up in Dec 2014 shortly after her AL. At that clinic appt , she was noted to have a Right frontal screw protrusion. Due to her recent AL and bare metal stent placement, she was [...] Daily Goal: to go home (10/24/15 0800) [facility] IP NURSE HANDOFF: Nesbitt hospital course events: PMHx: long-time smoker, COPD on home O2 during sleep, CAD w/ AL s/p Stents in Dec 2014, rupture Acomm [...] skilled PT. Jaylon Amor PT, DPT Pager: [phone] lan of Chris Abbott RN - 10/24/2015 9:25 AM PDTProblem: Case Management Goals Goal: Discharge Needs Met Case Management Initial Assessment Reason for Admission: cranioplasty Admitted From: home Emergency Contact: Extended Emergency Contact Information Primary Emergency Contact: Augusto Bell Relation: Son/Daughter Secondary Emergency Contact: Venessa Gerard [employer] Relation: Son/Daughter Past Medical History: Other acquired [...] smoker w / hx COPD, CAD w/ AL s/p Stents in Dec 2014, with hx of rupture Acomm aneurysm s/p clipping in 2007. 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 She was seen i neurosurgery clinic for follow up in Dec 2014 shortly after her AL. At that clinic appt , she was noted to have a Right frontal screw protrusion. Due to her recent AL and bare metal stent placement, she was [...] of Care / Advance Care NSICU ASSIGNED #[id number] Date: 10/23/2015 Advanced Directives: The patient does not have an advance directive in the EMR. A POLST is not indicated in the EMR. Healthcare Agent(s): Surrogate decision maker has been identified and is : Venessa Gerard (Daughter) . The surrogate decision maker has been listed as the emergency contact within [facility]. Code Status: Current Code Status Date Active Code Status Order ID Comments User Context 10/23/2015 3:47 PM Full Code [id number] Antoinette Adkins MD,PhD Inpatient Code History: Code Status History Date Active Date Inactive Code Status Order ID Comments User Context 10/23/2015 6:46 AM 10/23/2015 3:47 PM Full Code [id number] Tommie Daniel Izaiah Inpatient 06/07/2014 9:11 AM 06/08/2014 6:06 PM Full Code [id number] Angel Mazariegos MD Inpatient 06/07/2014 6:13 AM 06/07/2014 9:11 AM Full Code [id number] Beny Cruz MD Inpatient 05/13/2008 4:34 PM 05/14/2008 7:21 PM Full Code [id number] Alli Junior MD Inpatient 04/11/2008 5:27 PM 04/13/2008 11:04 PM Full Code [id number] Saskia Nguyen RN Inpatient 03/03/2008 1:17 PM 03/08/2008 10:09 PM Full Code [id number] To Prieto MD Inpatient 03/03/2008 1:16 PM 03/03/2008 1:16 PM DNR/DNI [id number] To Prieto MD Inpatient 03/03/2008 12:06 AM 03/03/2008 1:16 PM Full Code [id number] Marlon Mcintyre MD Inpatient 10/30/2007 10:53 PM 11/02/2007 8:59 PM Full Code [id number] Antoinette Saenz RN Inpatient 10/18/2007 5:01 AM 10/30/2007 10:53 PM Full Code [id number] Norberto Pettit Mami Inpatient Narrative Summary of [...] gland 06/06/2014 Goiter 06/06/2014 Coronary arteriosclerosis in [place] artery 03/06/2015 Acute zym-OU-lhvfbhcjn myocardial infarction (HCC) 12/28/2014 Resolved Ambulatory Problems Diagnosis Date Noted GERD (gastroesophageal reflux disease) 10/24/2007 Past Medical History Diagnosis Date Essential hypertension Tobacco dependence COPD CVA (cerebral vascular accident) ([facility]) 2007 Subarachnoid hemorrhage due to ruptured aneurysm ([facility]) 2007 Benign neoplasm of major salivary glands CAD in [place] artery Abnormal LFTs (liver function tests) MRSA (methicillin resistant staph aureus) culture positive Continuous tobacco abuse Past Surgical History Procedure Laterality Date Partial thyroidectomy Right Hysterectomy Cholecystecomy Bladder suspension 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 [employer] shunt Tympanoplasty Right 1987 Lumpectomy of left breast 1978 Coronary stent placement 12/28/2014 status post stent placement in the mid LAD Allergies Allergen Reactions [place] Tar Hives Betadine [Povidone-Iodine (With Soap)] Unknown [...] medication information: none given Functional Epidural: No COAT CUTTER: No Respiratory: RR: 18, O2 Sat: 94 [...] PACU Contact Name: Linda (daughter) Contact Number: [phone] Family contacted: Yes Comment: Update given to [...] medication information: none given Functional Epidural: No COAT CUTTER: No Respiratory: RR: 24, O2 Sat: 96 %, O2 Delivery: Oxymask Breath Sounds: WDL Except DARIEN: clear LLL: diminished RUL: clear RLL: diminished MELISSA No Comment: Cardiac: BP: 134/66 mmHg HR: 77 GI: Nausea/Vomiting Status: No Signs/Symptoms: Interventions: Assessment: Comments: : Last void: via benavides catheter in OR, catheter removed prior to PACU Contact Name: Linda (daughter) Contact Number: [phone] Family contacted: Yes Comment: Update given to [...] MELYSSASU - ERNESTO | [address] | [place], [place] | | | [facility] [facility] OF [facility] | [address] | [address] | | | TESTS | | | [...] | + + + + + | [facility] | [address] | [place] [address] | | | JOHNSON, RYAN | RAMSES [...] (H) | 60 - 99 mg/dL | [facility] - | | | GLUCOSE, [...] OROZCO | [address] | [place], [place] | | | [facility] OF [facility] | [facility] | [address] | | | TESTS | | | [...] ERNESTO | [address] | [place], [place] | | | [facility] OF [facility] | [address] | [address] | | | TESTS | | | [...] + + + | MICHELLE STEVENSMAURIYO | [address] | [place], [place] | | | [place] [facility] | [address] | [address] | | | TESTS | | | | + + + + + OPERATION RECORD (10/24/2015 8:27 AM PDT) + + | Transcriptions | + + | Magnolia Diego MD - 10/23/2015 4:36 PM PDT Date of Service: 10/23/2015 Attending | | Surgeon: Magnolia Diego MD Radiology Clerk(s): Antoinette Del Valle MD, PhD Raed B [...] that appointment she | | suffered an AL and was placed on aspirin and Plavix [...] was brought to the operating room on [facility]. She was | | sedated and intubated [...] 10/23/2015 15:01:44DT: 10/23/2015 16:36:58Job #: | | [id number], Dr. Magnolia Diego, was the primary surgeon and in the OR during the | | critical portions of this procedure. There was no complication.Magnolia Diego MDOHSU 7C | | [id number] [facility] [address]/[place], [place] [phone] | |The new synthetic skull flap was [...] |KLK/MODL | | | | | | /[id number] | | | |I, Dr. Magnolia Diego, was the primary surgeon and in the OR during the critical portions of this procedure. There was no complication. | | | | | | | |Magnolia Diego MD | |[facility] 7C NSI | |[address] | |[address] | |[place] [address] | |[phone] | + + CAPILLARY BLOOD GLUCOSE (NO [...] OROZCO | [address] | [place], [place] | | | RA[facility]L [facility]AY OF [facility]ARE | [address] | [address] | | | TESTS | | | [...] [facility] | [address] | [place] [address] | | | SERVICES, CORE | RAMSES [...] + + + + + | [facility] | [address] | [place] [address] | | | SERVICES, CORE | RAMSES [...] | | | LABORATORY | | | GUINEAN | | | SERVICES, | | | [...] + + + + + | [facility] | [address] | [place] [address] | | | SERVICES, CORE | RAMSES [...] + + | MICHELLE OROZCO | [address] [facility] [address] | [place], [place] | | | [facility] | [address] | [address] | | | TESTS | | | [...] | | PACU, cooper Antoinette Adkins MD,PhD [id number] | | + + + RENAL FUNCTION [...] | | | LABORATORY | | | GUINEAN | | | SERVICES, | | | [...] the MDRD equation recommended by the | [facility] | | National Kidney Disease [...] + + + + + | [facility] | [address] | [place] [address] | | | SERVICES, CORE | PARK [...] | | + +---------+ + + | [facility] DEPARTMENT OF | | | [...] + + + + + | [facility] | [address] | [place] [address] | | | SERVICES, CORE | RAMSES [...] + + + + + | [facility] | [address] | [place] [address] | | | SERVICES, CORE | RAMSES [...] | | | LABORATORY | | | GUINEAN | | | SERVICES, | | | [...] + + + + + | [facility] | [address] | [place] [address] | | | SERVICES, CORE | PARK [...] ERNESTO | [address] | [place], [place] | | | [facility] OF [facility] | [address] | [address] | | | TESTS | | | [...] | + + + + + | [facility] | [address] | [place] [address] | | | SERVICES, CORE | RAMSES [...] [facility] | [address] | [place] [address] | | | SERVICES, CORE | PARK [...] [facility] | [address] | [place] [address] | | | SERVICES, CORE | PARK [...] | | | LABORATORY | | | GUINEAN | | | SERVICES, | | | [...] the MDRD equation recommended by the | [facility] | | National Kidney Disease [...] + + + + + | [facility] | [address] | [place] [address] | | | SERVICES, RYAN | RAMSES [...]
--- OUTSIDE RECORDS SUMMARY | ~2019-10-16 | XMS | Encounter Summary ---
Demographics + + + | Address | [address] | | | [place] [address] | + + + | Home Phone [...] Team Providers + +------+ + | Care Content Specialist Name | Role | Phone | [...]
--- OUTSIDE RECORDS SUMMARY | ~2019-10-16 | XMS | Encounter Summary ---
Demographics + + + | Address | [address] | | | [place] [address] | + + + | Home Phone [...] Team Providers + +------+ + | Care Ax Survey Worker Name | Role | Phone | [...] | | | [address] | [facility] | disease | | | | Loop Physician's | [place], [place] | | | | | [address] | [address] | | | | | [place], [place] | [phone] | | | | | [address] | | | | | | [phone] | | | +--------+ + + + [...] OPAT patient has been entered into the [facility] OPAT system of care. Please contact [facility] ID at phone: [phone]; fa x: [phone] with any questions or concerns regarding this [...] note might be different from the original. [facility] OPAT Form OPAT Admit Date: 12/09/17 IP ID Cyber Systems Administrator: Tika Mejia MD, Xavier Mariscal MD Diagnosis: Cranial osteomyelitis, s/p removal of infected cranioplasty M86.9 Antimicrobials Start Date End Date Antibiotic Dose Duration Effective Start Date Anticipated Stop Date Com ments 12/08/17 Ceftriaxone 2g IV q 24 hours 6 weeks 12/05/17 01/16/18 weekly CBC with Differential and CMP Infusion Service Provider: [facility] P [phone], F [phone] Line & Lab Provider: " Line Type: Single-Lumen PICC (Comment: Non-tunneled;Valved Right Arm Basilic ) Line Placed (date): 12/09/17 Discharge Service: Neurological Surgery Discharge Service Provider: Paramjit Huber MD Notes: Team A: OPAT ALEKSANDAR Rowan, Office: [phone], Pager: [phone] Follow Up: with Dr. Mejia, Any available [...] supposed to see Mary Vazquez NP at [phone] [facility] All cultures final. elephone Encounter - Kristen Goss RN - 12/12/2017 11:11 AM PDTLast ID Consult Recs: Date of Service: 12/08/17 Maite Stevens, Medical Student Xavier Mariscal MD Assessment and Plan: 67 y/o F with CAD s/p NH, HTN, SAH s/p right pterional craniotomy for clipping (09/2007) c/b hydrocephalus treated by a right frontal VPS (03/2008) and synthetic cranioplasty for eroded hardware in 10/2015. Presented with a week of increasing headache and purulent drainage from the cranioplasty site with wound dehiscence, and on 12/06/17 underwent removal of craniopla sty and INTERNAL CONTROLS CONSULTANT shunt as well as washout. All hardware [...]
--- OUTSIDE RECORDS SUMMARY | ~2019-10-16 | XMS | Encounter Summary ---
Demographics + + + | Address | [address] | | | [place] [address] | + + + | Home Phone [...] Team Providers + +------+ + | Care Custom Garment Designer Name | Role | Phone | [...] [address] | Hemorrhage) ([facility]); | | | | [facility] | [place], [place] | HTN; COPD | | | | Health [facility] Healing, | [address] | | | | | [facility] | [phone] | | | | | floor [place], [place] | | | | | | [address] | | | | | | [phone] | | | +--------+---------+ + + + [...] back in 3months. MAGNOLIA DIEGO MD NEUROSURGERY [address] [place] [address] [facility], [address] [place] [address] documented in this encounter Miscellaneous [...]
--- OUTSIDE RECORDS SUMMARY | ~2019-10-16 | XMS | Encounter Summary ---
Demographics + + + | Address | [address] | | | [place] [address] | + + + | Home Phone [...] Team Providers + +------+ + | Care Platform Supervisor Name | Role | Phone | [...] Ave | | | | | e [place] for | [place], [place] | | | | | [facility] He[facility], | [address] | | | | | [facility] | [phone] | | | | | [place], [place] | | | | | | [address] | | | | | | [phone] | | | +--------+ + + + [...]
--- OUTSIDE RECORDS SUMMARY | ~2019-10-16 | XMS | Encounter Summary ---
Demographics + + + | Address | [address] | | | [place] [address] | + + + | Home Phone [...] Team Providers + +------+ + | Care Audit Lead Name | Role | Phone | + +------+ + PCP | Unavailable | + +------+ + Encounter Details +--------+ + + + + | Date | Type | Department | Care Team | Description | +--------+ + + + + | 10/17/ | EKG Results | Cardiac | Other, Faculty | | | 2007 | Only | Non-Invasive Testing | [phone] | | | | | at [facility] | | | | | | [address] | | | | | | [address] | | | | | | [place], [facility] floor | | | | | | [place], [place] | | | | | | [address] | | | | | | [phone] | | | +--------+ + + + [...] | 12 LEAD ECG | Routin | 10/18/2007 | | Results for this | | | e | 4:45 AM | | procedure are in the | | | | PDT | | results section. | + +--------+ + + + documented in this encounter Results 12 LEAD ECG (10/18/2007 4:45 AM PDT) + + + + + + | Component | Value | Ref Range | Performed | Pathologist | | | | | At | Signature | + + + + + + | VENTRICULAR | 90 | BPM | [facility] | | | RATE | | | OF | | | | | | CARDIOLOGY | | + + + + + + | ATRIAL RATE | 90 | BPM | [facility] | | | | | | OF | | | | | | CARDIOLOGY | | + + + + + + | P-R | 178 | ms | [facility] | | | INTERVAL | | | OF | | | | | | CARDIOLOGY | | + + + + + + | QRS | 100 | ms | [facility] | | | DURATION | | | OF | | | | | | CARDIOLOGY | | + + + + + + | QT | 384 | ms | [facility] | | | | | | OF | | | | | | CARDIOLOGY | | + + + + + + | QTC | 470 | ms | [facility] | | | | | | OF | | | | | | CARDIOLOGY | | + + + + + + | P AXIS | 74 | degrees | [facility] | | | | | | OF | | | | | | CARDIOLOGY | | + + + + + + | R AXIS | -33 | degrees | [facility] | | | | | | OF | | | | | | CARDIOLOGY | | + + + + + + | T AXIS | 94 | degrees | [facility] | | | | | | OF | | | | | | CARDIOLOGY | | + + + + + + | EKG | Normal sinus rhythm with | | [facility] | | | DIAGNOSIS | sinus arrhythmiaLeft | | OF | | | | axis deviationLeft | | CARDIOLOGY | | | | ventricular hypertrophy | | | | | | with repolarization | | | | | | abnormalityAbnormal | | | | | | ECG"I have personally | | | | | | interpreted this report, | | | | | | either alone or with a | | | | | | trainee."Confirmed by | | | | | | KAREN ROMERO ([id number]) on | | | | | | 31-Oct-2007 11:01:07 | | | | + + + [...] + + | Ordered by an | [facility] | | unspecified provider. Please click on view image for the detailed | CARDIOLOGY | | interpretation from [facility] results. | | |results. | | | | | + + + + + + + + | Performing | Address | City/State/Zipcode | Phone Number | | Organization | | | | + + + + + | [facility] | [address] | [place], [place] | | | CARDIOLOGY | [address] | [address] | | + + + + + | [facility] | [address] | [place], [place] | | | CARDIOLOGY | [address] | [address] | | + + + + + documented in this encounter Visit Diagnoses Not on filedocumented in this encounter
--- OUTSIDE RECORDS SUMMARY | ~2019-10-16 | XMS | Encounter Summary ---
Demographics + + + | Address | [address] | | | [place] [address] | + + + | Home Phone [...] Team Providers + +------+ + | Care Chair Maker Name | Role | Phone | + +------+ + | Mary Vazquez PA-C | PCP | | + +------+ + Encounter Details +--------+ + + + + | Date | Type | Department | Care Team | Description | +--------+ + + + + | 05/14/ | Procedure | Diagnostic Imaging | | | | 2018 | Pass | Services at [facility] | | | | | | [address] | | | | | | [address] | | | | | | [facility] | | | | | | [place], [place] | | | | | | [address] | | | | | | [phone] | | | +--------+ + + + [...]
--- OUTSIDE RECORDS SUMMARY | ~2019-10-16 | XMS | Encounter Summary ---
Demographics + + + | Address | [address] | | | [place] [address] | + + + | Home Phone [...] Providers + +------+ + | Care Machine Setup Operator Name | Role | Phone | [...] Ave | | | | | Ave [facility] | [place], [place] | | | | | [facility], | [address] | | | | | Building | [phone] | | | | | floor [place], [place] | | | | | | [address] | | | | | | [phone] | | | +--------+ + + + [...] please advise patient to reach [facility] apart of the infec tious disease department who is helping to manage her outpatient IV antibiotics. This team m ay be able to help set up infusions while she is here in town during her scheduled follow up s. Gave [facility] number to patient to call ([phone]). Patient greatly appreciated the call an d will give [facility] a call in the morning. Electronically signed by Valente Gerardo MA at 018 4:53 PM PDTTelephone Encounter - Marni Manning PA-C - 12/20/2017 12:27 PM PDTCan you please advise patient to reach out to [facility] apart of the infectiou s [...] can have the [facility] in [facility]. [facility] and won't be able to go to the [facility] oni t day. Please advise. Looking at the chart it I believe the patient gets an infusion through a PIC line, not an i njection. elephone Encounter - Perico Hall - 12/20/2017 8:14 AM Renita Maricarmen Bell is s/p CRANIOP LASTY WITH CUSTOM IMPLANT - Right 10/23/2015 Is on an IV everyday at the hospital in [facility] and has questions about her injections for when she sees Cecile. Routing encounter to nursing team to be evaluated and triage Please advise. Date Patient Last Seen: Last Appointment in [facility] was on 11/28/15 at 3:42 pm with Nsg Fellow. Future Appointment Date in Clinic: Next Appointment in [facility] is on 12/23/17 at 12:15 pm with Nsg Skull Base Pa STEFAN Gaines documented in this encoun ter Plan of Treatment Not on filedocumented as of this encounter Visit Diagnoses Not on filedocumented in this encounter"
--- OUTSIDE RECORDS SUMMARY | ~2019-10-16 | XMS | Encounter Summary ---
Demographics + + + | Address | [address] | | | [place] [address] | + + + | Home Phone [...] Team Providers + +------+ + | Care Resaw Operator Name | Role | Phone | [...] 2018 | on | [facility] [address] | [address] | | | | | Ave [facility] | [place], [place] | | | | | Health and Healing, | [address] | | | | | [facility] | [phone] | | | | | floor [place], [place] | | | | | | [address] | | | | | | [phone] | | | +--------+ + + + [...]
--- OUTSIDE RECORDS SUMMARY | ~2019-10-16 | XMS | Encounter Summary ---
Demographics + + + | Address | [address] | | | [place] [address] | + + + | Home Phone [...] Providers + +------+ + | Care Technical Communication Teacher Name | Role | Phone | + +------+ + PCP | Unavailable | + +------+ + Reason for Visit + + + | Reason | Comments | + + + | Subarachnoid | | | hemorrhage | | + + + AUTH/CERT +--------+--------+ [...] [facility] | | | | | | | [address] | | | | | | | [place] | | | | | | | [id number] | | | | | | | [facility] | | | | | | | [place], | | | | | | | [place] [address] | | | | | | | Phone: | | | | | | | [phone] | | | | | | | Fax: | | | | | | | [phone] | +--------+--------+ + + + + Encounter Details +--------+ + + + + | Date | Type | Department | Care Team | Description | +--------+ + + + + | 10/17/ | Emergency | [facility] Emergency | | | | 2007 | | Department [address] | | | | [address] | | | | | | [facility] | | | | | | [place], [place] | | | | | | [address] | | | | | | [phone] | | | +--------+ + + + [...] documented as of this encounter ED Notes Abhinav Clay - 10/18/2007 1:49 AM PDTSent for pt, 7NS 2 bhinav Clay - 10/18/2007 1:41 AM [id number] request ed documented in this enco unter Miscellaneous Notes [facility] Abhinav Clay - 10/18/2007 4:07 AM PDTCrew [place] [address] [facility] Abhinav Moreau - 10/18/2007 1:43 AM PDTNS notifiedElectronically signed by Abhinav Clay at 1:43 AM [facility] Abhinav Moreau - 10/18/2007 1:40 AM PDTGroup 18 pagedE lectronically signed by Abhinav Clay at 10/18/2007 1:40 AM [facility] Shabana Clay - 10/18/2007 1:39 AM PDT57 yof, sitting on couch, screamed had ZULUAGA then went uncon, arr ived at ref with GCS 3, intubated, scan shows diffused symetric bleed unknown where rupture site is, bp 185/107, hr 115 P DTdocumented in this encounter Plan of Treatment Not on filedocumented as of this encounter Visit Diagnoses Not on filedocumented in this encounter"
--- OUTSIDE RECORDS SUMMARY | ~2019-10-16 | XMS | Encounter Summary ---
Demographics + + + | Address | [address] | | | [place] [address] | + + + | Home Phone [...] Team Providers + +------+ + | Care Desulphuring Operator Name | Role | Phone | + +------+ + | No Pcp Per Patient | PCP | Unavailable | + +------+ + Reason for Referral Consultation (Routine) +--------+--------+ + + + + | Status | Reason | Specialty | Diagnoses / | Referred By | Referred To | | | | | Procedures | Contact | Contact | +--------+--------+ + + + + | Closed | | Otolaryngolog | Diagnoses | Manning, | Christopher, Ata, | | | | y | Draining | Marni P, | [address] | | | | | postoperativ | [address] | [address] | | | | | e wound, | [address] | Nora Funes | | | | | initial | Ashutosh Melendez | [place], [place] | | | | | encounter | Rd | [address] | | | | | Procedures | [facility], [place] | Phone: | | | | | CONSULT TO | [address] | [phone] | | | | | ENT / | Phone: | Fax: | | | | | OTOLARYNGOLO | [phone] | [phone] | | | | | [place] | Fax: | | | | | | | [phone] | | +--------+--------+ + + + + [...] | +--------+ + + + + | 12/03/ | Hospital | [facility] [address] | Manas Spear MD | | | 2018 - | Encounter | [address] | [address] | | | | | [id number] [facility] | [place], [place] | | | 12/09/ | | [facility] [address] | | | 2018 | | [place] [facility] | [phone] | | | | | [phone] | | | | | | | Magnolia Diego MD | | | | | | [address] | | | | | | [place], [place] | | | | | | [address] | | | | | | [phone] | | | | | | | [...] MD PCP: No Pcp Per PATIENT Service: [facility] Neurosurgery Diagnoses Principal Final [...] ENT offic e can be called at [phone] to schedule an appointment, if possible you [...] needs so outpatient infusion were arranged through [facility] in [place]. Patient is to go to the hospital [...] Aureus. Infusion being done at [facility] -Patient on DAPT for MD s/p stent. DAPT Can be resumed on [...] To: Home with outpatient IV abx through [facility] Does patient have a planned readmission: No Discharge Summary Completed?: Yes. 12/09/2017 Discharging Provider: Marni Manning PA-C Date Completed: 12/09/2017 Time Completed: 1:51 PM Discharging Attending: MD Marni Woods PA-C [address] [id number]/[place] [address] documented in t his encounter Medications at [...] management that inf usions set up at [facility]. Patient has had to BM's since 1529 [...] (or 3 results) - Refreshable Recent Labs 12/05/17202512/05/17 2227 12/07/17 1114 NA -- -- 137 K -- -- 5.0 CL -- -- 104 BICARB -- -- 22 BUN -- -- 17 EGFRAFRICAN -- -- >60 CR -- -- 0.67 GLU 68 130* 92 CA -- -- 8.4* PO4 -- -- 2.4 IMAGING: No new imaging ASSESSMENT: Cielo Bell is a 67 y.o. female CAD s/p MD, HTN, GERD, tobacco use and neurosur gical [...] patient. Marni Manning PA-C Neurological Surgery Pager [phone] Pager: [phone] obinsonVangie sa, PA-C - 12/07/2017 7:25 AM PDTFormatting of [...] is a 67 y.o. female CAD s/p MD, HTN, GERD, tobacco use and neurosur gical [...] and lozenges prn -E-mail sent to Dr. Christopher gutierrez possible need for future flap and concern [...] cx. Marni Manning PA-C Neurological Surgery Pager [phone] Pager: [phone] Associated attestation - Casey Hewitt MD - [...] is a 67 y.o. female CAD s/p MD, HTN, GERD, tobacco use and neurosur gical [...] riccardo. Marni Manning PA-C Neurological Surgery Pager [phone] Pager: [phone] Bari Paulino MD - 12/05/2017 10:32 PM [...] Bari Cameron MD PGY-5 Neurological Surgery Pager [phone] signed by Bari Cameron MD at 12/05/2017 [...] is a 67 y.o. female CAD s/p MD, HTN, GERD, tobacco use and neurosur gical [...] washout and revision ELAINE Bee Neurological Surgery [facility] [address] [address] [address] Pager: [phone] Dillan Somers MD - 12/04/2017 5:05 PM [...] 7am Dillan Bridges MD Neurosurgery, PGY-1 Pager [phone] Dillan Somers MD - 12/04/2017 9:23 AM [...] is a 67 y.o. female CAD s/p MD, HTN, GERD, tobacco use and neurosur gical [...] tonight 10.14 for OR tomorrow Please page [phone] with any questions or concerns. Dillan Bridges MD Neurosurgery, PGY-1 Pager [phone] Associated attestation - Casey Hewitt MD - [...] a 67 y.o. female with CAD s/p MD, HTN, GERD, tobacco use, a nd a [...] with no headaches or focal neurologic deficits; sandra coyle manages all of her own ADLs at [...] before her family br ought her to [place] for evaluation. There, a head CT was notable for an epidural air an d fluid collection consistent with abscess, for which she was transferred to [facility] for neuros urgical management. On arrival here she now denies headache, as well as fever/chills, nausea/vomiting, or focal neurologic concerns including weakness, numbness, or tingling. Her head has been wrapped wi th clean gauze and is no longer actively draining. She does endorse a history of ASA 81 give n her prior MD, with her last dose being this morning. 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; status post stent placement in the mid LAD Chronic pain Continuous tobacco abuse COPD on oxygen at night CVA (cerebral vascular accident) ([facility]) 2007 Essential hypertension GERD (gastroesophageal reflux disease) Goiter MRSA (methicillin resistant staph aureus) culture positive post cariotomy for SAH Otitis media recent abx preadmit Subarachnoid hemorrhage due to ruptured aneurysm ([facility]) 2007 Tobacco dependence PSH: Past Surgical History Procedure Date Partial thyroidectomy Hysterectomy Cholecystecomy Bladder suspension 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 Manager Freelance shunt Tympanoplasty 1987 Lumpectomy of left breast [...] Tommie Zarco MD Allergies: Allergies Allergen Reactions [place] Tar Hives Betadine [Povidone-Iodine (With Soap)] Unknown [...] is a 67 y.o. female CAD s/p MD, HTN, GERD, tobacco use and neurosur gical [...] Please contact the Neurosurgery resident on-call pager [phone] with questions or concerns. Vickie Estrada M.D., M.P.H. R2 Resident Physician Neurological Surgery Pager: [phone] signed by Magnolia Diego MD at 12/20/2017 [...] pause veri fies correct patient, procedure, equipment, sales support associate and site/side marked as required. CLABSI Prevention [...] area Basilic vein. Cat heter lot number: [id number] with a length of 55 cm was [...] Stevie olson: 12/05/2017 Attending Surgeon:Casey Hewitt MD Seam Rubber(s):Bari Cameron MD. Preoperative Diagnosis: Right-sided wound dehiscence [...] a formal time-out w as performed with N, date of and name of the patient [...] and ep idural pus-looking collection. MD CASSANDRA Capps/NGUYEN /[id number] signed by Casey Hewitt MD at 12/07/2017 [...] The patient was positioned appropriately. The following production team member s were present during the team pause: Neurosurgery, Anesthesiology, [place] nursing staff. Surgeon: Casey Hewitt MD Seam Rubber: Bari Cameron MD Pre-op Diagnosis: Cranioplasty infection [...] Bari Cameron MD PGY-5 Neurological Surgery Pager [phone] Associated attestation - Casey Hewitt MD - 12/05/2017 10:44 PM PDTI was present and scrub bed during the entire procedure. Herminia Cappsocumented in this encounter Consult Notes Tika Mejia MD - 12/09/2017 12:25 PM PDT [facility] Infectious Diseases OPAT Referral for Discharge Planning Team A: OPAT ALEKSANDAR Rowan, Office: [phone], Pager: [phone] ID Diagnosis: Cranial osteomyelitis, s/p removal of [...] Access: Ok to place PICC Follow Up: [facility] ID faculty with preference to schedule with Dr. Mejia, Any available f giblert or next available OPAT provider in 3 weeks post hospital discharge. Same day appointment coordination with: Neurosurgery if possible Imaging prior to ID follow up: none ID: Please route your note to the "p OPAT/infectious Diseases Clinic" pool Online Project Manager: For all patients requiring IV antibiotic therapy, please route your OPAT Bj n of Care Note (.CMOPAT) to [facility] "p OPAT/Infectious Diseases clinic" [...] Plan: 67 y/o F with CAD s/p MD, HTN, SAH s/p right pterional craniotomy for clipping (09/2007) c/b hydrocephalus treated by a right frontal VPS (03/2008) and synthetic cranioplasty for eroded hardwarein 10/2015. Presented with a week of increasing headache and purulent drainage fro m the cranioplasty site with wound dehiscence, and on 12/06/17 underwent removal of craniopl asty and ENVIRONMENTAL ENGINEER SCIENTIST shunt as well as washout. All hardware [...] the primary team. This patient was staffed [facility] Dr. Mariscal, who agrees with the above assessment and plan unless otherwise documented. Maite Stevens M4 Pager [phone] signed by Xavier Mariscal MD at 12/08/2017 [...] grams IV daily in its place. Xavier Mraiscal MD ID Attending Tika Mejia MD - [...] Laboratory Data: Recent Labs 12/03/17 2330 12/05/17 0512/07/17 0622 WBC 12.22* 10.28 13.50* RBC 3.72* 3.58* 3.38* HB 11.7* 11.4* 10.7* HCT 34.6* 33.8* 32.0* PLT 313 339 321 Recent Labs 12/03/17 23312/05/17 0524 12/05/17202512/05/17 2227 NA 138 139 -- [...] Plan: 67 y/o F with CAD s/p MD, HTN, SAH s/p right pterional craniotomy for clipping (09/2007) c/b hydrocephalus treated by a right frontal VPS (03/2008) and synthetic cranioplasty for eroded hardware in 10/2015. Presented with a week of increasing headache and purulent drainage from the cranioplasty site with wound dehiscence, and on 12/06/17 underwent removal of craniopla sty and ENVIRONMENTAL ENGINEER SCIENTIST shunt as well as washout. All hardware [...] the primary team. This patient was staffed [facility] Dr. Mariscal, who agrees with the above assessment and plan unless otherwise documented. Tika Mejia MD Infectious Disease Fellow Pager: [phone] signed by Xavier Mariscal MD at 12/07/2017 [...] to fourth dose. Please page clinical pharmacist [phone]) or call central inpatient pharmacy ([phone]) with qu estions. Actual body weight: Weight: 49.4 kg (109 lb) (12/03/17 4764) Labs: CREATININE PLASMA (LAB) (mg/dL) Date Value 12/05/2017 0.74 12/03/2017 0.63 BUN, PLASMA (LAB) (mg/dL) Date Value 12/05/2017 12 12/03/2017 12 WHITE CELL COUNT (K/cu mm) Date Value 12/07/2017 13.50 (H) 12/05/2017 10.28 12/03/2017 12.22 (H) VANCOMYCIN, TROUGH (ug/mL) Date/Time Value 12/07/2017 1114 11.9 Pertinent cultures/sensitivities: Tissue/Abscess from Head: Staphylococcus aureus. Thank you for the consult, Edmund Herr PharmD Clinical Pharmacist Pager: [phone] Marianna Tirado M D - 12/06/2017 4:03 [...] consult Marianna Chandler MD INFECTIOUS DISEASES AT [facility] [address] [place] [address] Mailcode: [address] [place] [phone] Fax - [phone] signed by Marianna Chandler MD at 12/09/2017 10:48 AM PDTSoEdmund hyatt, Maximilian - 12/06/2017 9:48 AM PDT Pharmacist Managed [...] dose (1030 12/07). Please page clinical pharmacist [phone]) or call central inpatient pharmacy ([phone]) with qu estions. Actual body weight: Weight: 49.4 kg (109 lb) (12/03/17 2139) Labs: CREATININE PLASMA (LAB) (mg/dL) Date Value 12/05/2017 0.74 12/03/2017 0.63 BUN, PLASMA (LAB) (mg/dL) Date Value 12/05/2017 12 12/03/2017 12 WHITE CELL COUNT (K/cu mm) Date Value 12/05/2017 10.28 12/03/2017 12.22 (H) Pertinent cultures/sensitivities: Tissue and abscess from head: Few GPCs Catheter Tip from head: NGTD Thank you for the consult, Edmund Herr PharmD Clinical Pharmacist Pager: [phone] oMaite vasquez 9:27 AM PDTAssociated Order(s): IP CONSULT TO INFECTIOUS DISEASES INPATIENT INFECTIOUS DISEASE CONSULT NOTE Infectious Disease Team A Patient: Cielo Bell Room/Bed: 17 Requesting Provider: ALEXANDRO Attending Physician: Dr. Marianna Chandler PCP: No Pcp Per PATIENT Author: Maite Stevens Date of Admission: 12/03/2017 Hospital Day: 3 Date of Service: 12/06/2017 Chief Complaint/Reason for Consult: Chief complaint: infection of cranial hardware ID consult s/p explant with washout for antibiotic choice and duration HPI: Cielo Bell is a 67 y.o. female with CAD s/p MD, HTN, SAH s/p right pterional craniotomy for [...] vision at this time. She presented to [facility] where a head CT showed epidural air and fluid collection consistent with abscess. Wound was swabbed in the ED and showed growth of MSSA (12/05). She was then transferred to [facility] for neurosurgi eagle management. 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 12/27/2014; status post stent placement in the mid LAD Chronic pain Continuous tobacco abuse COPD on oxygen at night CVA (cerebral vascular accident) ([facility]) 2007 Essential hypertension GERD (gastroesophageal reflux disease) Goiter MRSA (methicillin resistant staph aureus) culture positive post cariotomy for SAH Otitis media recent abx preadmit Subarachnoid hemorrhage due to ruptured aneurysm ([facility]) 2007 Tobacco dependence Past Surgical History: Procedure Laterality Date BLADDER SUSPENSION cholecystecomy CORONARY STENT PLACEMENT 12/28/2014 status post stent placement in the mid LAD HYSTERECTOMY LUMPECTOMY OF LEFT BREAST 1979 PARTIAL THYROIDECTOMY Right REPAIR OF ANEURYSM BY CLIPPING TYMPANOPLASTY Right 1987 ENVIRONMENTAL ENGINEER SCIENTIST SHUNT Prior Medications: Prescriptions Prior to Admission [...] mg intravenous Q12H Allergies Allergies Allergen Reactions [place] Tar Hives Betadine [Povidone-Iodine (With Soap)] Unknown [...] place, date and situation. Data: Recent Labs 12/03/17232912/05/17 0523 WBC 12.22* 10.28 RBC 3.72* 3.58* HB 11.7* 11.4* HCT 34.6* 33.8* PLT 313 339 Recent Labs 12/03/17232912/05/17 0524 10/15/18 2026 10/15/18 2227 NA 138 139 -- -- K [...] RLB Gram Stain...........: Gram smear performed at [facility]. Culture: Final Report: No growth after 3 days. Final Report 04/29/2008 CSF Culture Source...............: Cerebrospinal Fluid RLB Gram Stain...........: Gram smear performed at [facility]. Culture: Rare Methicillin resistant Staphylococcus aureus Final ID MRSA Cefazolin R Clindamycin S Erythromycin R Oxacillin R Penicillin R Tetracycline S Trimeth/Sulfa S Vancomycin S Final Report 03/07/2008 CSF Culture Source...............: Cerebrospinal Fluid RLB Gram Stain...........: Gram smear performed at [facility]. Culture: Final Report: No growth after 3 days. Final Report 03/03/2008 CSF Culture Source...............: Cerebrospinal Fluid RLB Gram Stain...........: Gram smear performed at [facility]. Culture: Final Report: No growth after 3 days. Final Report 03/03/2008 Wound Culture Source...............: Skin Abscess RLB Gram Stain...........: Rare Squamous epithelial cells Rare PMN's Rare Gram positive cocci Culture: 1+ Methicillin resistant Staphylococcus aureus Final ID MRSA Cefazolin R Clindamycin S Erythromycin R Oxacillin R Penicillin R Tetracycline S Trimeth/Sulfa S Vancomycin S Final Report Resulted: 03/05/08 RLB ([facility]) [place] [address] [facility] [place] [id number] 03/03/2008 Urine Culture Source...............: Clean catch Culture: Final Report: No growth (< 1,000 col/ml) after 24 hours Final Report Resulted: 03/05/08 RLB ([facility]) [place] [address] [facility] [place] [id number] 10/28/2007 CSF Culture Source...............: Cerebrospinal Fluid RLB Gram Stain...........: Gram smear performed at [facility]. Culture: Final Report: No growth after 3 days. Final Report CULTURE RESULT (no units) Date Value 12/03/2017 No growth to date. Imaging: CT head 12/06: Interval postsurgical changes of right frontal cranioplasty and ENVIRONMENTAL ENGINEER SCIENTIST shunt rem oval without acute intracranial abnormality. Fluid and gas collection in the cranioplasty be d is unchanged. Problem List: Active Problems: Draining postoperative wound Assessment and Plan: Cielo Bell is a 67 y.o. female with CAD s/p MD, HTN, SAH s/p right pterional c raniotomy [...] initial cultur es from wound swab in [place] show MSSA, an infection of this duration [...] the primary team. This patient was staffed [facility] Dr. Chandler, who agrees with the above assessment and plan unless otherwise documented. Thank you for the consult. We will follow along with you. Maite Stevens, 12/06/17 , 9:29 AM M4 Pager [phone] signed by Marianna Chandler MD at 12/09/2017 [...] consult Marianna Chandler MD INFECTIOUS DISEASES AT [facility] 3RD FLOOR [facility] Mailcode: [address] [place] [phone] Fax - [phone] documented in this encounter Miscellaneous Notes Handoff - Jemima Holloway RN - 12/09/2017 10:40 AM PDTNursing Handoff Patient Daily Goal: Bowel Movement and progress to discharge (12/09/17 9442) Patient Specific Preferences: wants coffee SAIDA if not having surgery (12/04/17 0832) [facility] IP NURSE HANDOFF: Nesbitt hospital course events: Cielo Dooleyaneziggy Nurard is a 67 y.o. fem eugenie here for removal of infected crainioplasty and washout. 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 Patient was admitted to count includes the [facility] on evening of 12/05. SAFETY Patient/Family [...] SAIDA if not having surgery (12/04/17 0832) [facility] IP NURSE HANDOFF: Nesbitt hospital course events: Cielo Bell is a 67 y.o. fem eugenie here for removal of infected crainioplasty and washout. 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 Patient was admitted to count includes the [facility] on evening of 12/05. SAFETY Patient/Family [...] SAIDA if not having surgery (12/04/17 0832) [facility] IP NURSE HANDOFF: Nesbitt hospital course events: Cielo Bell is a 67 y.o. fem eugenie here for removal of infected crainioplasty and washout. 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 Patient was admitted to count includes the [facility] on evening of 12/05. SAFETY Patient/Family [...] SAIDA if not having surgery (12/04/17 0832) [facility] IP NURSE HANDOFF: Nesbitt hospital course events: Cielo Bell is a 67 y.o. fem eugenie here for removal of infected crainioplasty and washout. 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 Patient was admitted to count includes the [facility] on evening of 12/05. SAFETY Patient/Family [...] SAIDA if not having surgery (12/04/17 0832) [facility] IP NURSE HANDOFF: Nesbitt hospital course events: Cielo Bell is a 67 y.o. fem eugenie here for removal of infected crainioplasty and washout. 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 Patient was admitted to count includes the [facility] on evening of 12/05. SAFETY Patient/Family [...] SAIDA if not having surgery (12/04/17 0832) [facility] IP NURSE HANDOFF: Nesbitt hospital course events: Cielo Bell is a 67 y.o. fem eugenie here for removal of infected crainioplasty and washout. 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 Patient was admitted to count includes the [facility] on evening of 12/05. SAFETY Patient/Family [...] -Treat symptoms prn Following. Hallie Duncan [address], [employer] [place] #[id number] Comments: Cielo Bell is a 67 y.o. [...] SAIDA if not having surgery (12/04/17 0832) [facility] IP NURSE HANDOFF: Nesbitt hospital course events: Cielo Bell is a 67 y.o. fem eugenie here for removal of infected crainioplasty and washout. 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 Patient was admitted to count includes the [facility] on evening of 12/05. SAFETY Patient/Family [...] SAIDA if not having surgery (12/04/17 0832) [facility] IP NURSE HANDOFF: Nesbitt hospital course events: Cielo Bell is a 67 y.o. fem eugenie here for removal of infected crainioplasty and washout. 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 Patient was admitted to count includes the [facility] on evening of 12/05. SAFETY Patient/Family [...] in amb ulance on a stretcher from [place]. She stated she asked attendant to put [...] Patient Daily Goal: go to OR (12/05/17 1949) Patient Specific Preferences: wants coffee SAIDA if not having surgery (12/04/17 0832) [facility] IP NURSE HANDOFF: Nesbitt hospital course events: Per previous RN handoff: 67 y.o. female with CAD s/p MD, HTN, GERD, tobacco use, and a long [...] all of her own ADLs at [facility]. 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; status post stent placement in the mid LAD Chronic pain Continuous tobacco abuse COPD on oxygen at night CVA (cerebral vascular accident) ([facility]) 2007 Essential hypertension GERD (gastroesophageal reflux disease) Goiter MRSA (methicillin resistant staph aureus) culture positive post cariotomy for SAH Otitis media recent abx preadmit Subarachnoid hemorrhage due to ruptured aneurysm ([facility]) 2007 Tobacco dependence Past Surgical History Procedure Laterality Date Partial thyroidectomy Right Hysterectomy Cholecystecomy Bladder suspension 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 Manager Freelance shunt Tympanoplasty Right 1987 Lumpectomy of left breast 1978 Coronary stent placement 12/28/2014 status post stent placement in the mid LAD * No Diagnosis Codes entered * Surgical Procedure Planned - Actual Procedure Performed: Procedure(s) with comments: CRANIAL WOUND WASHOUT - explant of cranioplasty; wound washout REMOVAL OF VENTRIULO-PERITONEAL SHUNT - possible removal of ENVIRONMENTAL ENGINEER SCIENTIST shunt Anesthesia: General & Local Length of procedure: In Room/Out of Room: 1 Hr 35 Min 54 Sec Surgeon(s) and Role: * Casey Hewitt MD - Primary OR positioning comments: supine Neuro: POSS Sedation Level: Sleep, Easy to Arouse Last pain medication given: Pain medication totals: see MAR Additional pain medication information: none Functional Epidural: N/A 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/A Respiratory: RR: 16, O2 Sat: 93 %, O2 Delivery: Oxymask Breath Sounds: WDL Except DARIEN: LLL: RUL: RLL: MELISSA No Comment: none Cardiac: BP: 107/53 HR: 88 GI: Nausea/Vomiting Status: No Signs/Symptoms: Interventions: Assessment: Comments: none : Last void: 1948 Contact Name: Eric () or Juan (ASHUTOSH) Contact Number: [phone] Family contacted: Yes Comment:update to brother Eric at time of transfer Belongings:upper dentures returned to Cielo, no other belongings in PACUNursing Handoff Patient Daily Goal: go to OR (12/05/171948) Patient Specific Preferences: wants coffee SAIDA if not having surgery (12/04/17 3332) [facility] IP NURSE HANDOFF: Nesbitt hospital course events: Cielo Bell is a 67 y.o. fem eugenie here for removal of infected crainioplasty and washout. 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 Patient was admitted to count [facility] the [facility] on evening of 12/05. 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; status post stent placement in the mid LAD Chronic pain Continuous tobacco abuse COPD on oxygen at night CVA (cerebral vascular accident) ([facility]) 2007 Essential hypertension GERD (gastroesophageal reflux disease) Goiter MRSA (methicillin resistant staph aureus) culture positive post cariotomy for SAH Otitis media recent abx preadmit Subarachnoid hemorrhage due to ruptured aneurysm ([facility]) 2007 Tobacco dependence Past Surgical History Procedure Laterality Date Partial thyroidectomy Right Hysterectomy Cholecystecomy Bladder suspension 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 Manager Freelance shunt Tympanoplasty Right 1987 Lumpectomy of left breast 1979 Coronary stent placement 12/28/2014 status post stent placement in the mid LAD * No Diagnosis Codes entered * Surgical Procedure Planned - Actual Procedure Performed: Procedure(s) with comments: CRANIAL WOUND WASHOUT - explant of cranioplasty; wound washout REMOVAL OF VENTRIULO-PERITONEAL SHUNT - possible removal of ENVIRONMENTAL ENGINEER SCIENTIST shunt Anesthesia: General & Local Length of procedure: In Room/Out of Room: 1 Hr 35 Min 54 Sec Surgeon(s) and Role: * Casey Hewitt MD - Primary OR positioning comments: supine Neuro: POSS Sedation Level: Frequently Drowsy, Arousable, Drifts Off to Sleep during Conve rsation Last pain medication given: Pain medication totals: see MAR Additional pain medication information: none Functional Epidural: N/A 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/A Respiratory: RR: (!) 25, O2 Sat: 91 %, O2 Delivery: Nasal cannula Breath Sounds: WDL Except DARIEN: LLL: RUL: RLL: MELISSA No Comment: none Cardiac: BP: 143/80 HR: 90 GI: Nausea/Vomiting Status: No Signs/Symptoms: Interventions: Assessment: Comments: none : Last void: 1949 Contact Name: Eric (brother) or Juan (ASHUTOSH) Contact Number: [phone] Family contacted: Yes Comment:update to brother Eric at time of transfer Belongings:upper dentures returned to [facility], no other belongings in PACUElectronically sig gem by Silvia Byrne RN at 12/05/2017 11:15 PM PDTHandoff - Diana Pollock RN - 12/06/19 5:42 PM PDTNursing Handoff Patient Daily Goal: Have surgery (12/05/17 0820) Patient Specific Preferences: wants coffee SAIDA if not having surgery (12/04/17 0832) [facility] IP NURSE HANDOFF: Nesbitt hospital course events: Per previous RN handoff: 67 y.o. female with CAD s/p MD, HTN, GERD, tobacco use, and a long [...] Progress to Target: Improving As evidenced by: --HOSPICE ADMINISTRATOR completed shower, LAILA and linen change at [...] Tuesday(per previous shift report) andoff - Basil, Me marty RN - 12/05/2017 5:46 AM PDTNursing Handoff Patient Daily Goal: Find out the plan for surgery- would like to be taken off NPO if not posadas ving sx today (12/04/17831) Patient Specific Preferences: wants coffee SAIDA if not having surgery (12/04/17831) [facility] IP NURSE HANDOFF: Nesbitt hospital course events: Per previous RN handoff: 67 y.o. female with CAD s/p MD, HTN, GERD, tobacco use, and a long [...] all of her own ADLs at [facility]. SAFETY Patient/Family Target: [facility] will [...] ON Tuesday(per previous shift report) andoff - Christopher, Frankie weiss RN - 12/04/2017 5:11 PM PDTNursing Handoff Patient Daily Goal: Find out the plan for surgery- would like to be taken off NPO if not posadas ving sx today (12/04/17831) Patient Specific Preferences: wants coffee SAIDA if not having surgery (12/04/17831) [facility] IP NURSE HANDOFF: Nesbitt hospital course events: Per previous RN handoff: 67 y.o. female with CAD s/p MD, HTN, GERD, tobacco use, and a long [...] all of her own ADLs at [facility]. SAFETY Patient/Family Target: [facility] will [...] coffee SAIDA if not having surgery (12/04/17831) [facility] IP NURSE HANDOFF: Nesbitt hospital course events: Per previous RN handoff: 67 y.o. female with CAD s/p MD, HTN, GERD, tobacco use, and a long [...] manages all of her own ADLs at [facility]. NURSING ASSESSMENT & RECOMMENDATIONS FORWARD Nursing Assessment [...] a plan for fix head (12/03/17 2200) [facility] IP NURSE HANDOFF: Nesbitt hospital course events: 67 y.o. female with CAD s/p MD, HTN, EULALIA D, tobacco use, and a [...] At | + + + | EXAM: MO ABDOMEN 1 VIEW History: Concern for SBO, [...] Service Account, Radiant Res In Interface - 12/09/2017 4:22 PM PDT EXAM: MO ABDOMEN | | 1 VIEW History: Concern [...] PM Preliminary: Lei Chun MD Dictation initiated: Lei Chun | | 12/09/2017 4:19 PM | | | [...] [facility] | [address] | [place] [address] | | | SERVICES, CORE | [address] [...] + + + + + | [facility] | [address] | [place] [address] | | | SERVICES, CORE | [address] | | | + + + + + X-RAY PORTABLE CHEST PICC LINE CHECK (12/07/2017 1:17 PM PDT) + + | Specimen | + + | | + + + + + | Narrative | Performed At | + + + | EXAM: MO CHEST PICC LINE CHECK HISTORY: new picc placement, pt | [facility] | | ready COMPARISON: 04/29/2008 FINDINGS: Right upper | RADIOLOGY VOICE | | extremity PICC tip is in the region of the cavoatrial junction. ENVIRONMENTAL ENGINEER SCIENTIST | RECOGNITION 2 | | shunt projects [...] Note | + + | Service Account, [employer] Res In Interface - 12/07/2017 1:25 PM PDT EXAM: MO CHEST | | PICC LINE CHECK HISTORY: new picc placement, pt ready COMPARISON: 04/29/2008 FINDINGS: | | Right upper extremity PICC tip is in the region of the cavoatrial junction. ENVIRONMENTAL ENGINEER SCIENTIST shunt | | projects over the right [...] Note Indications:Antibiotics | | | Procedure location: Unit:10k Room: 17 Providers: Attending name: | | [...] | | verifies correct patient, procedure, equipment, sales support associate and | | | site/side marked as [...] | area Basilic vein. Catheter lot number: [id number] with a length of 55 | | [...] | | | LABORATORY | | | [facility] | | | SERVICES, | | | [...] give dose after drawing trough. Questions, page #[phone]. | LABORATORY | | Thank you. GFR [...] [facility] | [address] | [place] [address] | | | SERVICES, CORE | P[address] [...] immediately prior to 1200 dose on | MICHELLE | | 12/07. Okay to give dose after drawing trough. Questions, page #[phone]. | LABORATORY | | Thank you. | SERVICES, CORE | + + + + + + + + | Performing | Address | City/State/Zipcode | Phone Number | | Organization | | | | + + + + + | [facility] | [address] | [place] [address] | | | SERVICES, RYAN | [address] | | | + + + [...] | + + + + + | [facility] | [address] | [place] [address] | | | RYAN [place] | [address] | | | + + + + + OPERATION RECORD (12/06/2017 2:12 AM PDT) + + | Procedure Note | + + | Casey Hewitt MD - 12/06/2017 2:12 AM PDT Date of Service: 12/05/2017 Attending | | Surgeon:Casey Hewitt MD Seam Rubber(s):Bari Cameron MD. | | Preoperative Diagnosis: Right-sided [...] 12/06/2017 00:30:33DT: 12/06/2017 | | 02:12:59Job #: [id number] | + + CT HEAD WO CONTRAST [...] | | | right frontal cranioplasty and ENVIRONMENTAL ENGINEER SCIENTIST shunt removal without acute | | | [...] postsurgical changes of right frontal cranioplasty and ENVIRONMENTAL ENGINEER SCIENTIST shunt removal without | | acute intracranial [...] postsurgical changes of right frontal cranioplasty and ENVIRONMENTAL ENGINEER SCIENTIST shunt removal without ac cameron intracranial abnormality. | | | |Fluid and [...] [facility] | [address] | [place], [place] | | | [facility] | [facility] | [address] | | | TESTS | | | | + + + + + PROCEDURE NOTE (12/05/2017 10:14 PM PDT) + + + | Narrative | Performed At | + + + | Bari Cameron MD 12/05/2017 10:21 PM Neurosurgery Brief | | | Operative Note 12/05/2017 10:14 PM Patient: Cielo Hernadez | | | Ray Consent: Prior to the beginning of the [...] Surgeon: | | | Casey Hewitt MD Seam Rubber: Bari Cameron MD Pre-op | | | [...] | | we will consult plastics surgery aBri Cameron MD PGY-5 | | | Neurological Surgery Pager [phone] | | + + + CULTURE, TISSUE [...] + | [facility] | [address] | [place] [address] | | | [place] | | | | + + + [...] + | [facility] - | [address] | [place] [address] | | | [place] | | | [...] 1+ Staphylococcus aureus Refer to culture | [facility] - | | collected 12/05/17 at 2137 for susceptibilities No anaerobic | [facility] - | | organisms isolated Gram Stain: Few squamous epithelial cells | [place] | | Moderate polymorphonuclear cells Few Gram positive cocci | | + + + + + + + + | Performing | Address | City/State/Zipcode | Phone Number | | Organization | | | | + + + + + | [facility] - | [address] | [place] [address] | | | [place] | | | | + + + [...] | + + + + + | [facility] | [address] | [place] [address] | | | [place] | | | [...] [facility] | [address] | [place], [place] | | | [facility] | [address] | [address] | | | TESTS | | | [...] [facility] | [address] | [place] [address] | | | SERVICES, | [address] [...] + + + + + | [facility] | [address] | [place] [address] | | | SERVICES, | [address] | | | | TRANSFUSION MEDICINE [...] | | | LABORATORY | | | [facility] | | | SERVICES, | | | [...] + + + + + | [facility] | [address] | [place] [address] | | | SERVICES, CORE | [address] [...] + + | [facility] | [address] | [place] [address] | | | RYAN [place]NELAS | [address] [...] | + + + + + | [facility] | [address] | [place] [address] | | | SERVICES, CORE | [address] | | | + + + [...] + + + + | [facility] | [address] | [address] | [facility] [...] [facility]PT OF | [address] | [place], [place] | | | CARDIOLOGY | [address] | [address] | | + + + + + [...] + + + + + | [facility] | [address] | [place] [address] | | | SERVICES, CORE | [address] | | | + + + [...] + + | [facility] | [address] | [place] [address] | | | SERVICES, RYAN | [address] | | | + + + [...] [facility] | [address] | [place] [address] | | | SERVICES, CORE | [address] [...] and new reporting units as of | [facility] | | 07/25/2013. | LABORATORY | | | RYAN [place]NELAS | + + + + + + + + | Performing | Address | City/State/Zipcode | Phone Number | | Organization | | | | + + + + + | [facility] | [address] | [place] [address] | | | RYAN [place] | [address] | | | + + + [...] [facility] | [address] | [place] [address] | | | RYAN [place] | [address] | | | + + + [...] [facility] | [address] | [place] [address] | | | SERVICESRYAN | [address] | | | + + + [...] | | | LABORATORY | | | [facility] | | | SERVICES, | | | [...] + + + + + | [facility] | [address] | [place] [address] | | | SERVICES, RYAN | [address] | | | + + + + + documented in this encounter Visit Diagnoses + + | Diagnosis | + + | Draining postoperative wound, initial encounter - Primary | + + | SAH (subarachnoid hemorrhage) (HCC) Subarachnoid hemorrhage | + + | Essential hypertension | + + | Skull defect Unspecified acquired deformity of head | + + | No contraindication to deep vein thrombosis (DVT) prophylaxis | + + | Constipation, unspecified constipation type | + + | Epidural intracranial abscess | + + documented in this encounter [...] | | +---+---+ + +-------+ +-----+---+---+ | ceFEPIme (MAXIPIME) injection 2 | Given | 12/09/19 | 2 g | | | | g 2 g, intravenous, EVERY 8 | | 18 1:30 | | | | | HOURS, First dose on Tue12/06/17 | | AM PDT | | | | | at 0915, Until Discontinued | | | | | | + +-------+ +-----+---+---+ +-------+ +-----+---+---+ | Given | 12/08/19 | 2 g | | | | | 18 5:28 | | | | | | PM PDT | | | | +-------+ +-----+---+---+ | Given | 12/08/19 | 2 g | | | | | 18 9:06 | | | | | | AM [...] | | | | | 18 at 1700, Until | | | | [...] +---+---+ | | | +---+---+ + +-------+ +--------+---+---------+ | influenza high-dose vaccine | Given | 12/10/19 | 0.5 mL | | Left | | (FLUZONE HIGH-DOSE) (PF) IM | | 18 5:26 | | | Deltoid | | injection (age 65 years or | | PM PDT | | | | | greater) 0.5 mL 0.5 mL, | | | | | | | intramuscular, DAY OF DISCHARGE, | | | | | | | 1 dose, Starting 12/04/17 at | | | | | | | 0116, Until Tue12/09/17 at 1726, | | | | | | | Flu vaccination per delegation | | | | | | | protocol | | | | | | + +-------+ +--------+---+---------+ +---+---+ | | | +---+---+ + + [...] +-------+---+---+ | metoprolol succinate | Given | 12/05/19 | 25 mg | | | | (TOPROL-XL) tablet 25 mg 25 mg, | | 18 8:33 | | | | | oral, DAILY, First dose on Sun | | AM PDT | | | | | 12/04/17 at 0900, Until | | | | [...] | | +---+---+ + +---------+ +--------+---+---+ | metroNIDAZOLE (FLAGYL) IV 500 | New Bag | 12/09/19 | 500 mg | | | | mg 500 mg, intravenous, EVERY 8 | | 18 6:34 | | | | | HOURS, First dose on Tue12/06/17 | | AM PDT | | | | | at 1400, Until Discontinued | | | | | | + +---------+ +--------+---+---+ +---------+ +--------+---+---+ | New Bag | 12/08/19 | 500 mg | | | | | 18 9:12 | | | | | | PM PDT | | | | +---------+ +--------+---+---+ | New Bag | 12/08/19 | 500 mg | | | | | 18 2:09 | | | | | | PM PDT | | | | +---------+ +--------+---+---+ +---+---+ | | | +---+---+ + +-------+ +--------+---+---+ | metroNIDAZOLE (FLAGYL) tablet | Given | 12/09/19 | 500 mg | | | | 500 mg 500 mg, oral, THREE TIMES | | 18 4:09 | | | | | DAILY, First dose on Clarisa | | PM PDT | | | | | 12/08/17 at 1600, Until | | | | | | | Discontinued | | | | | | + +-------+ +--------+---+---+ +---+---+ | | | +---+---+ + +-------+ +--------+---+---+ | mineral oil (FLEET MINERAL OIL) | Given | 12/09/19 | 133 mL | | | | rectal enema 133 mL 133 mL, | | 18 4:09 | | | | | rectal, ONCE, 1 dose, Clarisa | | PM PDT | | | | | 12/08/17 at 0715 | | | | | | + [...] | | | DAILY, First dose on Clarisa 12/08/17 | | PM PDT | | | [...] | polyethylene glycol (MIRALAX) | Given | 12/08/19 | 34 g | | | | packet 34 g 34 g, oral, THREE | | 18 5:28 | | | | | TIMES DAILY NEEDED, Starting | | PM PDT | | | | | 12/03/17 at 2159, Until Wed | | | | | | | 12/07/17 at 2224, 1st line - for | | | | | | | no BM for 2 days | | | | | | + +-------+ +------+---+---+ +-------+ +------+---+---+ | Given | 12/07/19 | 34 g | | | | | 18 9:09 | | | | | | AM PDT | | | | +-------+ +------+---+---+ + +---+ | | | + +---+ | polyethylene glycol (MIRALAX) | | | packet 34 g 34 g, oral, THREE | | | TIMES DAILY NEEDED, Starting | | | Tue12/07/17 at 2225, Until Sat | | | [...] | | | | | NEEDED, Starting Tue12/07/17 at | | | | | | [...] | Auricula | | First dose on [facility] 12/08/17 at | | | | | r | | 0015, Until Discontinued | | | | | | + + + +---------+---+ + +---+---+ | | | +---+---+ + +-------+ + +---+---+ | senna-docusate (SENOKOT S) | Given | 12/08/19 | 1 tablet | | | | 8.6-50 mg 1 tablet 1 tablet, | | 18 9:10 | | | | | oral, TWICE DAILY, First dose on | | PM PDT | | | | | 12/03/17 at 2200, Until | | | | | | | Discontinued | | | | | | + +-------+ + +---+---+ +-------+ + +---+---+ | Given | 12/08/19 | 1 tablet | | | | | 18 9:00 | | | | | | AM PDT | | | | +-------+ + +---+---+ | Given | 12/07/19 | 1 tablet | | | | | 18 9:25 [...] PDT | | | | | Clarisa 12/08/17 at 0900, Until | | | [...] | | +---+---+ + +---------+ +--------+-------+---+ | vancomycin (VANCOCIN) IV 500 mg | New Bag | 12/08/19 | 500 mg | 105 | | | 500 mg, intravenous, EVERY 12 | | 18 12:29 | | mL/hr | | | HOURS, First dose (after last | | PM PDT | | | | | modification) on Tue12/06/17 at | | | | | | | 1030, Until Discontinued | | | | | | + +---------+ +--------+-------+---+ +---------+ +--------+---+---+ | New Bag | 12/08/19 | 500 mg | | | | | 18 12:03 | | | | | | AM PDT | | | | +---------+ +--------+---+---+ | New Bag | 12/07/19 | 500 mg | | | | | 18 11:54 | | | | | | AM PDT | | | | +---------+ +--------+---+---+ +---+---+ | | | +---+---+ + +---------+ +--------+-------+---+ | vancomycin (VANCOCIN) IV 750 mg | New Bag | 12/09/19 | 750 mg | 158 | | | 750 mg, intravenous, EVERY 12 | | 18 11:36 | | mL/hr | | | HOURS, First dose (after last | | AM PDT | | | | | modification) on [facility] 12/08/17 at | | | | | | | 0000, Until Discontinued | | | | | | + +---------+ +--------+-------+---+ +---------+ +--------+---+---+ | New Bag | 12/08/19 | 750 mg | | | | | 18 11:53 | | | | | | PM PDT | | | | +---------+ +--------+---+---+ +---+---+ | | | +---+---+ documented in this encounter
--- OUTSIDE RECORDS SUMMARY | ~2019-10-16 | XMS | Encounter Summary ---
Demographics + + + | Address | [address] | | | [place] [address] | + + + | Home Phone [...] Providers + +------+ + | Care Retail Wireless Associate Name | Role | Phone | [...] | | | | | | Building [place], | | | | | | [place] [address] | | | | | | [phone] | | | +--------+--------+ + + + [...]
--- OUTSIDE RECORDS SUMMARY | ~2019-10-16 | XMS | Encounter Summary ---
Demographics + + + | Address | [address] | | | [place] [address] | + + + | Home Phone [...] Team Providers + +------+ + | Care Freight Hustler Name | Role | Phone | + [...]
--- OUTSIDE RECORDS SUMMARY | ~2019-10-16 | XMS | Encounter Summary ---
Demographics + + + | Address | [address] | | | [place] [address] | + + + | Home Phone [...] Team Providers + +------+ + | Care Automation Controls Specialist Name | Role | Phone | + +------+ + | Lance Pandya DO | PCP | | + +------+ + Encounter Details +--------+ + + + + | Date | Type | Department | Care Team | Description | +--------+ + + + + | 09/06/ | Imaging | [facility] | Provider, | | | 2018 | Exam | [facility] | MD [address] | | | | | IMAGING [address] | | | | | [address] | [place] [address] | | | | | [place] [address] | | | | | | [phone] | | | +--------+ + + + [...] | + +--------+ + + + | XR CHEST 1 VIEW | Routin | 12/27/2014 | | Results for this | | | e | 7:15 PM | | procedure are in the | | | | PST | | results section. | + +--------+ + + + documented in this encounter Results XR Chest 1 Vw (12/27/2014 7:15 PM PST) + + | Specimen | + + | | + + + + + | Narrative | Performed At | + + + | External films for comparison only | [facility] | | | | | No results will be in the chart. | | + + + + +---------+ + + | Performing | Address | City/State/Zipcode | Phone Number | | Organization | | | | + +---------+ + + | [facility] | | | | + +---------+ + + documented in this encounter Visit Diagnoses Not on filedocumented in this encounter"
--- OUTSIDE RECORDS SUMMARY | ~2019-10-16 | XMS | Encounter Summary ---
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 | Role | Phone [...] | | initial | Ashutosh Melendez | [place], [place] | | | | | encounter | Rd | [address] | | | | | Procedures | [facility] [place] | Phone: | | | | | CONSULT TO | [address] | [phone] | | | | | ENT / | Phone: | Fax: | | | | | OTOLARYNGOLO | [phone] | [phone] | | | | | GY | Fax: | | | | | | | [phone] | | +--------+--------+ + + + + [...] + + | 12/03/ | Hospital | [facility] [address] | Manas Spear MD | | | 2018 - | Encounter | [address] | [address] | | | | | [id number] [facility] | [place], [place] | | | 12/09/ | | [facility] [address] | | | 2018 | | [place] [facility] | [phone] | | | | | [phone] | | | | | | | Magnolia Diego MD | | | | | | [address] | | | | | | [place], [place] | | | | | | [address] | | | | | | [phone] | | | | | | | [...] MD PCP: No Pcp Per PATIENT Service: [facility] Neurosurgery Diagnoses Principal Final Diagnosis: Right-sided wound [...] ENT offic e can be called at [phone] to schedule an appointment, if possible you [...] not wish to g o to a senior care facility for ongoing IV antibiotic needs so outpatient infusion were arranged through [facility] in [place]. Patient is to go to the hospital [...] growing S. Aureus. Infusion being done at [facility] -Patient on DAPT for GA s/p stent. DAPT Can be resumed on [...] To: Home with outpatient IV abx through [facility] Does patient have a planned readmission: No Discharge Summary Completed?: Yes. 12/09/2017 Discharging Provider: Marni Manning PA-C Date Completed: 12/09/2017 Time Completed: 1:51 PM Discharging Attending: MD Marni Woods PA-C [id number]/[place] [id number] documented in t his encounter Medications at [...] management that inf usions set up at [facility]. Patient has had to BM's since [...] -- 2.4 IMAGING: No new imaging ASSESSMENT: Cieol Bell is a 67 y.o. female CAD s/p GA, HTN, GERD, tobacco use and neurosur gical [...] patient. Marni Manning PA-C Neurological Surgery Pager [phone] Pager: [phone] obinsonVangie sa, PA-C - 12/07/2017 7:25 AM [...] is a 67 y.o. female CAD s/p GA, HTN, GERD, tobacco use and neurosur gical [...] cx. Marni Manning PA-C Neurological Surgery Pager [phone] Pager: [phone] Associated attestation - Casey Hewitt MD - [...] is a 67 y.o. female CAD s/p GA, HTN, GERD, tobacco use and neurosur gical [...] riccardo. Marni Manning PA-C Neurological Surgery Pager [phone] Pager: [phone] Bari Paulino MD - 12/05/2017 10:32 PM [...] Bari Cameron MD PGY-5 Neurological Surgery Pager [phone] signed by Bari Cameron MD at 12/05/2017 [...] is a 67 y.o. female CAD s/p GA, HTN, GERD, tobacco use and neurosur gical [...] washout and revision ELAINE Bee Neurological Surgery [facility] [address] [address] [address] Pager: [phone] Dillan Somers MD - 12/04/2017 5:05 PM [...] 7am Dillan Bridges MD Neurosurgery, PGY-1 Pager [phone] Dillan Somers MD - 12/04/2017 9:23 AM [...] is a 67 y.o. female CAD s/p GA, HTN, GERD, tobacco use and neurosur gical [...] tonight 10.14 for OR tomorrow Please page [phone] with any questions or concerns. Dillan Bridges MD Neurosurgery, PGY-1 Pager [phone] Associated attestation - Casey Hewitt MD - [...] a 67 y.o. female with CAD s/p GA, HTN, GERD, tobacco use, a nd a [...] before her family br ought her to [facility] for evaluation. There, a head CT was notable for an epidural air an d fluid collection consistent with abscess, for which she was transferred to [facility] for neuros urgical management. On arrival here she now denies headache, as well as fever/chills, nausea/vomiting, or focal neurologic concerns including weakness, numbness, or tingling. Her head has been wrapped wi th clean gauze and is no longer actively draining. She does endorse a history of ASA 81 give n her prior GA, with her last dose being this morning. 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/p NSTEMI 12/27/2014; status post stent placement in the mid LAD Chronic pain Continuous tobacco abuse COPD on oxygen at night CVA (cerebral vascular accident) ([facility]) 2007 Essential hypertension GERD (gastroesophageal reflux disease) Goiter MRSA (methicillin resistant staph aureus) culture positive post cariotomy for SAH Otitis media recent abx preadmit Subarachnoid hemorrhage due to ruptured aneurysm ([facility]) 2007 Tobacco dependence PSH: Past Surgical History Procedure Date Partial thyroidectomy Hysterectomy Cholecystecomy Bladder suspension 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 Injection Mold Tooling Technician shunt Tympanoplasty 1987 Lumpectomy of left [...] Tommie Zarco MD Allergies: Allergies Allergen Reactions Sunnyside Tar Hives Betadine [Povidone-Iodine (With Soap)] Unknown [...] is a 67 y.o. female CAD s/p GA, HTN, GERD, tobacco use and neurosur gical [...] Please contact the Neurosurgery resident on-call pager [phone] with questions or concerns. Vickie Estrada M.D., M.P.H. R2 Resident Physician Neurological Surgery Pager: [phone] signed by Magnolia Diego MD at 12/20/2017 [...] pause veri fies correct patient, procedure, equipment, patient support associate and site/side marked as required. [...] area Basilic vein. Cat heter lot number: [id number] with a length of 55 cm was [...] Stevie olson: 12/05/2017 Attending Surgeon:Casey Hewitt MD Charter Driver(s):Bari Cameron MD. Preoperative Diagnosis: Right-sided wound dehiscence and infection with epidural abscess. Postoperative Diagnosis: Right-sided wound dehiscence and infection with epidural abscess. Procedure: Removal of the right-sided previous cranioplasty, removal of the right-sided ve ntriculoperitoneal shunt, evacuation of the right-sided epidural abscess and wound washout w ith debridement of the wound. Brief Clinical History: Cielo Blel is a 67-year-old female who initially presented [...] ep idural pus-looking collection. MD CASSANDRA Capps/NGUYEN /[id number] signed by Casey Hewitt MD at 12/07/2017 [...] The patient was positioned appropriately. The following store team leader s were present during the team pause: Neurosurgery, Anesthesiology, OR nursing staff. Surgeon: Casey Hewitt MD Charter Driver: Bari Cameron MD Pre-op Diagnosis: Cranioplasty infection [...] Bari Cameron MD PGY-5 Neurological Surgery Pager [phone] Associated attestation - Casey Hewitt MD - 12/05/2017 10:44 PM PDTI was present and scrub bed during the entire procedure. Herminia Cappsocumented in this encounter Consult Notes Tika Mejia MD - 12/09/2017 12:25 PM PDT [facility] Infectious Diseases OPAT Referral for Discharge Planning Team A: OPAT ALEKSANDAR Rowan, Office: [phone], Pager: [phone] ID Diagnosis: Cranial osteomyelitis, s/p removal of [...] Access: Ok to place PICC Follow Up: [facility] ID faculty with preference to schedule with Dr. Mejia, Any available f gilbert or next available OPAT provider in 3 weeks post hospital discharge. Same day appointment coordination with: Neurosurgery if possible Imaging prior to ID follow up: none ID: Please route your note to the "p OPAT/infectious Diseases Clinic" pool Laboratory Mechanic Helper: For all patients requiring IV antibiotic therapy, please route your OPAT Bj n of Care Note (.CMOPAT) to [facility] "p OPAT/Infectious Diseases clinic" Pool at discharge. [...] Plan: 67 y/o F with CAD s/p GA, HTN, SAH s/p right pterional craniotomy for clipping (09/2007) c/b hydrocephalus treated by a right frontal VPS (03/2008) and synthetic cranioplasty for eroded hardwarein 10/2015. Presented with a week of increasing headache and purulent drainage fro m the cranioplasty site with wound dehiscence, and on 12/06/17 underwent removal of craniopl asty and ALUM MIXER shunt as well as washout. All hardware [...] the primary team. This patient was staffed [facility] Dr. Mariscal, who agrees with the above assessment and plan unless otherwise documented. Maite Stevens M4 Pager [phone] signed by Xavier Mariscal MD at 12/08/2017 [...] Plan: 67 y/o F with CAD s/p GA, HTN, SAH s/p right pterional craniotomy for clipping (09/2007) c/b hydrocephalus treated by a right frontal VPS (03/2008) and synthetic cranioplasty for eroded hardware in 10/2015. Presented with a week of increasing headache and purulent drainage from the cranioplasty site with wound dehiscence, and on 12/06/17 underwent removal of craniopla sty and ALUM MIXER shunt as well as washout. All hardware [...] the primary team. This patient was staffed [facility] Dr. Mariscal, who agrees with the above assessment and plan unless otherwise documented. Tika Mejia MD Infectious Disease Fellow Pager: [phone] signed by Xavier Mariscal MD at 12/07/2017 [...] to fourth dose. Please page clinical pharmacist [phone]) or call central inpatient pharmacy ([phone]) with qu estions. Actual body weight: Weight: 49.4 kg (109 lb) (12/03/17 5100) Labs: CREATININE PLASMA (LAB) (mg/dL) Date Value 12/05/2017 0.74 12/03/2017 0.63 BUN, PLASMA (LAB) (mg/dL) Date Value 12/05/2017 12 12/03/2017 12 WHITE CELL COUNT (K/cu mm) Date Value 12/07/2017 13.50 (H) 12/05/2017 10.28 12/03/2017 12.22 (H) VANCOMYCIN, TROUGH (ug/mL) Date/Time Value 12/07/2017 1114 11.9 Pertinent cultures/sensitivities: Tissue/Abscess from Head: Staphylococcus aureus. Thank you for the consult, Edmund Herr PharmD Clinical Pharmacist Pager: [phone] Marianna Tirado M D - 12/06/2017 4:03 [...] consult Marianna Chandler MD INFECTIOUS DISEASES AT [facility] [address]RD FLOOR [address] [place] [address] Mailcode: [address] [place] [phone] Fax - [phone] signed by Marianna Chandler MD at 12/09/2017 [...] dose (1030 12/07). Please page clinical pharmacist ([phone]) or call central inpatient pharmacy ([phone]) with qu estions. Actual body weight: Weight: 49.4 kg (109 lb) (12/03/17 2408) Labs: CREATININE PLASMA (LAB) (mg/dL) Date Value 12/05/2017 0.74 12/03/2017 0.63 BUN, PLASMA (LAB) (mg/dL) Date Value 12/05/2017 12 12/03/2017 12 WHITE CELL COUNT (K/cu mm) Date Value 12/05/2017 10.28 12/03/2017 12.22 (H) Pertinent cultures/sensitivities: Tissue and abscess from head: Few GPCs Catheter Tip from head: NGTD Thank you for the consult, Edmund Herr PharmD Clinical Pharmacist Pager: [phone] oMaite vasquez 9:27 AM PDTAssociated Order(s): IP [...] a 67 y.o. female with CAD s/p GA, HTN, SAH s/p right pterional craniotomy for [...] vision at this time. She presented to [facility] where a head CT showed epidural air and fluid collection consistent with abscess. Wound was swabbed in the ED and showed growth of MSSA (12/05). She was then transferred to [facility] for neurosurgi eagle management. Explant of cranioplasty [...] neoplasm of major salivary glands CAD in [place] artery s/p NSTEMI 12/27/2014; status post stent placement in the mid LAD Chronic pain Continuous tobacco abuse COPD on oxygen at night CVA (cerebral vascular accident) ([facility]) 2007 Essential hypertension GERD (gastroesophageal reflux disease) Goiter MRSA (methicillin resistant staph aureus) culture positive post cariotomy for SAH Otitis media recent abx preadmit Subarachnoid hemorrhage due to ruptured aneurysm ([facility]) 2007 Tobacco dependence Past Surgical History: Procedure Laterality Date BLADDER SUSPENSION cholecystecomy CORONARY STENT PLACEMENT 12/28/2014 status post stent placement in the mid LAD HYSTERECTOMY LUMPECTOMY OF LEFT BREAST 1979 PARTIAL THYROIDECTOMY Right REPAIR OF ANEURYSM BY CLIPPING TYMPANOPLASTY Right 1987 ALUM MIXER SHUNT Prior Medications: Prescriptions Prior to Admission [...] mg intravenous Q12H Allergies Allergies Allergen Reactions Sunnyside Tar Hives Betadine [Povidone-Iodine (With Soap)] Unknown [...] RLB Gram Stain...........: Gram smear performed at [facility]. Culture: Final Report: No growth after 3 days. Final Report 04/29/2008 CSF Culture Source...............: Cerebrospinal Fluid RLB Gram Stain...........: Gram smear performed at [facility]. Culture: Rare Methicillin resistant Staphylococcus aureus Final ID MRSA Cefazolin R Clindamycin S Erythromycin R Oxacillin R Penicillin R Tetracycline S Trimeth/Sulfa S Vancomycin S Final Report 03/07/2008 CSF Culture Source...............: Cerebrospinal Fluid RLB Gram Stain...........: Gram smear performed at [facility]. Culture: Final Report: No growth after 3 days. Final Report 03/03/2008 CSF Culture Source...............: Cerebrospinal Fluid RLB Gram Stain...........: Gram smear performed at [facility]. Culture: Final Report: No growth after 3 days. Final Report 03/03/2008 Wound Culture Source...............: Skin Abscess RLB Gram Stain...........: Rare Squamous epithelial cells Rare PMN's Rare Gram positive cocci Culture: 1+ Methicillin resistant Staphylococcus aureus Final ID MRSA Cefazolin R Clindamycin S Erythromycin R Oxacillin R Penicillin R Tetracycline S Trimeth/Sulfa S Vancomycin S Final Report Resulted: 03/05/08 RLB ([facility]) [place] [address] [place] [address] 03/03/2008 Urine Culture Source...............: Clean catch Culture: Final Report: No growth (< 1,000 col/ml) after 24 hours Final Report Resulted: 03/05/08 RLB ([facility]) [place] [address] [place] [address] 10/28/2007 CSF Culture Source...............: Cerebrospinal Fluid RLB Gram Stain...........: Gram smear performed at [facility]. Culture: Final Report: No growth after 3 days. Final Report CULTURE RESULT (no units) Date Value 12/03/2017 No growth to date. Imaging: CT head 12/06: Interval postsurgical changes of right frontal cranioplasty and ALUM MIXER shunt rem oval without acute intracranial abnormality. Fluid and gas collection in the cranioplasty be d is unchanged. Problem List: Active Problems: Draining postoperative wound Assessment and Plan: Cielo Bell is a 67 y.o. female with CAD s/p GA, HTN, SAH s/p right pterional c raniotomy [...] initial cultur es from wound swab in [place] show MSSA, an infection of this duration [...] the primary team. This patient was staffed [facility] Dr. Chandler, who agrees with the above assessment and plan unless otherwise documented. Thank you for the consult. We will follow along with you. Maite Stevens, 12/06/17 , 9:29 AM M4 Pager [phone] signed by Marianna Chandler MD at 12/09/2017 [...] consult Marianna Chandler MD INFECTIOUS DISEASES AT [facility] 3RD FLOOR [facility] [address] [facility] Mailcode: [address] [place] [phone] Fax - [phone] documented in this encounter Miscellaneous Notes Handoff - Jemima Holloway RN - 12/09/2017 10:40 AM PDTNursing Handoff Patient Daily Goal: Bowel Movement and progress to discharge (12/09/17 1592) Patient Specific Preferences: wants coffee SAIDA if not having surgery (12/04/17 0832) [facility] IP NURSE HANDOFF: Nesbitt hospital course events: Cielo Dooleyaneziggy Nurard is a 67 y.o. fem eugenie here for removal of infected crainioplasty and washout. 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 Patient was admitted to [facility] on evening of 12/05. SAFETY Patient/Family Target: [...] SAIDA if not having surgery (12/04/17 0832) [facility] IP NURSE HANDOFF: Nesbitt hospital course events: Cielo Bell is a 67 y.o. fem eugenie here for removal of infected crainioplasty and washout. 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 Patient was admitted to [facility] on evening of 12/05. SAFETY Patient/Family Target: [...] SAIDA if not having surgery (12/04/17 0832) [facility] IP NURSE HANDOFF: Nesbitt hospital course events: Cielo Bell is a 67 y.o. fem eugenie here for removal of infected crainioplasty and washout. 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 Patient was admitted to [facility] on evening of 12/05. SAFETY Patient/Family Target: [...] SAIDA if not having surgery (12/04/17 0832) [facility] IP NURSE HANDOFF: Nesbitt hospital course events: Cielo Bell is a 67 y.o. fem eugenie here for removal of infected crainioplasty and washout. 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 Patient was admitted to [facility] on evening of 12/05. SAFETY Patient/Family Target: [...] SAIDA if not having surgery (12/04/17 0832) [facility] IP NURSE HANDOFF: Nesbitt hospital course events: Cielo Bell is a 67 y.o. fem eugenie here for removal of infected crainioplasty and washout. 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 Patient was admitted to [facility] on evening of 12/05. SAFETY Patient/Family Target: [...] SAIDA if not having surgery (12/04/17 0832) [facility] IP NURSE HANDOFF: Nesbitt hospital course events: Cielo Bell is a 67 y.o. fem eugenie here for removal of infected crainioplasty and washout. 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 Patient was admitted to [facility] on evening of 12/05. SAFETY Patient/Family Target: [...] -Treat symptoms prn Following. Hallie Duncan RD, RIDES SUPERVISOR, [place] #[id number] Comments: Cielo Bell is a 67 y.o. [...] SAIDA if not having surgery (12/04/17 0832) [facility] IP NURSE HANDOFF: Nesbitt hospital course events: Cielo Bell is a 67 y.o. fem eugenie here for removal of infected crainioplasty and washout. 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 Patient was admitted to [facility] on evening of 12/05. SAFETY Patient/Family Target: Cielo will use call light for assistance, remain free from fall. Progress to Target: Improving As evidenced by: Cielo has been calling appropriately to get up to the BR;no fall or injury this shift. U p as a close SBA. Must have helmet on at all time. COMFORT/ANXIETY/BEHAVIOR Patient/Family Target: Cieol will be able to rest comfortably this [...] SAIDA if not having surgery (12/04/17 0832) [facility] IP NURSE HANDOFF: Nesbitt hospital course events: Cielo Bell is a 67 y.o. fem eugenie here for removal of infected crainioplasty and washout. 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 Patient was admitted to [facility] on evening of 12/05. SAFETY Patient/Family Target: [...] in amb ulance on a stretcher from [place]. She stated she asked attendant to put [...] SAIDA if not having surgery (12/04/17 0832) [facility] IP NURSE HANDOFF: Nesbitt hospital course events: Per previous RN handoff: 67 y.o. female with CAD s/p GA, HTN, GERD, tobacco use, and a long [...] all of her own ADLs at [facility]. SAFETY Patient/Family Target: Cielo will remain [...] Progress to Target: Improving As evidenced by: --MANUFACTURING ENGINEERING DIRECTOR completed shower, LAILA and linen change at 0900 NURSING ASSESSMENT & RECOMMENDATIONS FORWARD Nursing Assessment of Patient Stability Risk: Moderately stable Recommendations Forward: -NPO 12/05 at [place] for add-on wound washout (possible shunt explant) [...] neoplasm of major salivary glands CAD in [place] artery s/p NSTEMI 12/27/2014; status post stent placement in the mid LAD Chronic pain Continuous tobacco abuse COPD on oxygen at night CVA (cerebral vascular accident) ([facility]) 2007 Essential hypertension GERD (gastroesophageal reflux disease) Goiter MRSA (methicillin resistant staph aureus) culture positive post cariotomy for SAH Otitis media recent abx preadmit Subarachnoid hemorrhage due to ruptured aneurysm ([facility]) 2007 Tobacco dependence Past Surgical History Procedure Laterality Date Partial thyroidectomy Right Hysterectomy Cholecystecomy Bladder suspension 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 Injection Mold Tooling Technician shunt Tympanoplasty Right 1987 Lumpectomy of left breast 1978 Coronary stent placement 12/28/2014 status post stent placement in the mid LAD * No Diagnosis Codes entered * Surgical Procedure Planned - Actual Procedure Performed: Procedure(s) with comments: CRANIAL WOUND WASHOUT - explant of cranioplasty; wound washout REMOVAL OF VENTRIULO-PERITONEAL SHUNT - possible removal of ALUM MIXER shunt Anesthesia: General & Local Length of procedure: In Room/Out of Room: 1 Hr 35 Min 54 Sec Surgeon(s) and Role: * Casey Hewitt MD - Primary OR positioning comments: supine Neuro: POSS Sedation Level: Sleep, Easy to Arouse Last pain medication given: Pain medication totals: see MAR Additional pain medication information: none Functional Epidural: N/A WELFARE INTERVIEWER: N/A Respiratory: RR: 16, O2 Sat: 93 %, O2 Delivery: Oxymask Breath Sounds: WDL Except DARIEN: LLL: RUL: RLL: MELISSA No Comment: none Cardiac: BP: 107/53 HR: 88 GI: Nausea/Vomiting Status: No Signs/Symptoms: Interventions: Assessment: Comments: none : Last void: 1949 Contact Name: Eric () or Juan (ASHUTOSH) Contact Number: [phone] Family contacted: Yes Comment:update to brother Eric at time of transfer Belongings:upper dentures returned to Cielo, no other belongings in PACUNursing Handoff Patient Daily Goal: go to OR (12/05/171948) Patient Specific Preferences: wants coffee SAIDA if not having surgery (12/04/17 6432) [facility] IP NURSE HANDOFF: Nesbitt hospital course events: Cielo Bell is a 67 y.o. fem eugenie here for removal of infected crainioplasty and washout. 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 Patient was admitted to [facility] on evening of 12/05. SAFETY Patient/Family Target: [...] neoplasm of major salivary glands CAD in [place] artery s/p NSTEMI 12/27/2014; status post stent placement in the mid LAD Chronic pain Continuous tobacco abuse COPD on oxygen at night CVA (cerebral vascular accident) ([facility]) 2007 Essential hypertension GERD (gastroesophageal reflux disease) Goiter MRSA (methicillin resistant staph aureus) culture positive post cariotomy for SAH Otitis media recent abx preadmit Subarachnoid hemorrhage due to ruptured aneurysm ([facility]) 2007 Tobacco dependence Past Surgical History Procedure Laterality Date Partial thyroidectomy Right Hysterectomy Cholecystecomy Bladder suspension 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 Injection Mold Tooling Technician shunt Tympanoplasty Right 1987 Lumpectomy of left breast 1979 Coronary stent placement 12/28/2014 status post stent placement in the mid LAD * No Diagnosis Codes entered * Surgical Procedure Planned - Actual Procedure Performed: Procedure(s) with comments: CRANIAL WOUND WASHOUT - explant of cranioplasty; wound washout REMOVAL OF VENTRIULO-PERITONEAL SHUNT - possible removal of ALUM MIXER shunt Anesthesia: General & Local Length of procedure: In Room/Out of Room: 1 Hr 35 Min 54 Sec Surgeon(s) and Role: * Casey Hewitt MD - Primary OR positioning comments: supine Neuro: POSS Sedation Level: Frequently Drowsy, Arousable, Drifts Off to Sleep during Conve rsation Last pain medication given: Pain medication totals: see MAR Additional pain medication information: none Functional Epidural: N/A WELFARE INTERVIEWER: N/A Respiratory: RR: (!) 25, O2 Sat: 91 %, O2 Delivery: Nasal cannula Breath Sounds: WDL Except DARIEN: LLL: RUL: RLL: MELISSA No Comment: none Cardiac: BP: 143/80 HR: 90 GI: Nausea/Vomiting Status: No Signs/Symptoms: Interventions: Assessment: Comments: none : Last void: 1949 Contact Name: Eric (brother) or Juan (ASHUTOSH) Contact Number: [phone] Family contacted: Yes Comment:update to brother Eric at time of transfer Belongings:upper dentures returned to Cielo, no other belongings in PACUElectronically sig gem by Silvia Byrne RN at 12/05/2017 11:15 PM PDTHandoff - Diana Pollock RN - 12/06/19 5:42 PM PDTNursing Handoff Patient Daily Goal: Have surgery (12/05/17 0820) Patient Specific Preferences: wants coffee SAIDA if not having surgery (12/04/17 0832) [facility] IP NURSE HANDOFF: Nesbitt hospital course events: Per previous RN handoff: 67 y.o. female with CAD s/p GA, HTN, GERD, tobacco use, and a long [...] Progress to Target: Improving As evidenced by: --MANUFACTURING ENGINEERING DIRECTOR completed shower, LAILA and linen change at [...] coffee SAIDA if not having surgery (12/04/17831) [facility] IP NURSE HANDOFF: Nesbitt hospital course events: Per previous RN handoff: 67 y.o. female with CAD s/p GA, HTN, GERD, tobacco use, and a long [...] all of her own ADLs at [facility]. SAFETY Patient/Family Target: Cielo will use [...] coffee SAIDA if not having surgery (12/04/17831) [facility] IP NURSE HANDOFF: Nesbitt hospital course events: Per previous RN handoff: 67 y.o. female with CAD s/p GA, HTN, GERD, tobacco use, and a long [...] all of her own ADLs at [facility]. SAFETY Patient/Family Target: Cielo will use [...] coffee SAIDA if not having surgery (12/04/17831) [facility] IP NURSE HANDOFF: Nesbitt hospital course events: Per previous RN handoff: 67 y.o. female with CAD s/p GA, HTN, GERD, tobacco use, and a long [...] manages all of her own ADLs at [facility]. NURSING ASSESSMENT & RECOMMENDATIONS FORWARD Nursing [...] a plan for fix head (12/03/17 2200) [facility] IP NURSE HANDOFF: Nesbitt hospital course events: 67 y.o. female with CAD s/p GA, HTN, EULALIA D, tobacco use, and a [...] [facility] | [address] | [place] [address] | | | SERVICES, CORE | PARK [...] | + + + + + | [facility] | [address] | [place] [address] | | | SERVICES, CORE | NORA [...] in the region of the cavoatrial junction. ALUM MIXER | RECOGNITION 2 | | shunt projects [...] Note | + + | Service Account, Cloupia Res In Interface - 12/07/2017 1:25 PM PDT EXAM: MO CHEST | | PICC LINE CHECK HISTORY: new picc placement, pt ready COMPARISON: 04/29/2008 FINDINGS: | | Right upper extremity PICC tip is in the region of the cavoatrial junction. ALUM MIXER shunt | | projects over the right [...] | | verifies correct patient, procedure, equipment, patient support associate and | | | site/side [...] | area Basilic vein. Catheter lot number: [id number] with a length of 55 | | [...] | | | LABORATORY | | | [place] | | | SERVICES, | | | [...] give dose after drawing trough. Questions, page #[phone]. | LABORATORY | | Thank you. GFR [...] [facility] | [address] | [place] [address] | | | SERVICES, CORE | PARK [...] give dose after drawing trough. Questions, page #[phone]. | LABORATORY | | Thank you. | SERVICES, CORE | + + + + + + + + | Performing | Address | City/State/Zipcode | Phone Number | | Organization | | | | + + + + + | [facility] | [address] | [place] [address] | | | SERVICES, RYAN | NORA [...] | + + + + + | [facility] | [address] | [place] [address] | | | RYAN [place]NELAS | [address] | | | + + + + + OPERATION RECORD (12/06/2017 2:12 AM PDT) + + | Procedure Note | + + | Casey Hewitt MD - 12/06/2017 2:12 AM PDT Date of Service: 12/05/2017 Attending | | Surgeon:Casey Hewitt MD Charter Driver(s):Bari Cameron MD. | | Preoperative Diagnosis: Right-sided [...] 12/06/2017 00:30:33DT: 12/06/2017 | | 02:12:59Job #: [id number] | + + CT HEAD WO CONTRAST [...] | | | right frontal cranioplasty and ALUM MIXER shunt removal without acute | | | [...] postsurgical changes of right frontal cranioplasty and ALUM MIXER shunt removal without | | acute intracranial [...] postsurgical changes of right frontal cranioplasty and ALUM MIXER shunt removal without ac cameron intracranial abnormality. [...] [facility] | [address] | [place], [place] | | | [facility] | [facility] | [address] | | | TESTS | | | [...] Surgeon: | | | Casey Hewitt MD Charter Driver: Bari Cameron MD Pre-op | | | [...] PGY-5 | | | Neurological Surgery Pager [phone] | | + + + CULTURE, TISSUE [...] + | [facility] | [address] | [place] [address] | | | [place] | | | | + + + [...] + | [facility] - | [address] | [place] [address] | | | [place] | | | [...] 1+ Staphylococcus aureus Refer to culture | [place] - | | collected 12/05/17 at 2137 for susceptibilities No anaerobic | [facility] - | | organisms isolated Gram Stain: Few squamous epithelial cells | [place] | | Moderate polymorphonuclear cells Few Gram positive cocci | | + + + + + + + + | Performing | Address | City/State/Zipcode | Phone Number | | Organization | | | | + + + + + | [facility] - | [address] | [place] [address] | | | [place] | | | | + + + [...] | + + + + + | [facility] | [address] | [place] [address] | | | [place] | | | [...] [facility] | [address] | [place], [place] | | | [facility] | [address] | [address] | | | TESTS | | | [...] [facility] | [address] | [place] [address] | | | SERVICES, | [address] [...] | + + + + + | [facility] | [address] [facility] | [place] [address] | | | SERVICES, | [address] [...] | | | LABORATORY | | | [place] | | | SERVICES, | | | [...] | + + + + + | [facility] | [address] | [place] [address] | | | SERVICES, CORE | PARK [...] + + + + + | [facility] | [address] [facility] | [place] [address] | | | RYAN [place]NELAS | PARK [...] | + + + + + | [facility] | [address] | [place] [address] | | | SERVICES, CORE | NORA [...] DEPT OF | [address] | [place], [place] | | | CARDIOLOGY | [address] | [address] | | + + + + + [...] | + + + + + | [facility] | [address] | [place] [address] | | | SERVICES, CORE | NORA [...] | [facility] | [address] [facility] | [place] [address] | | | SERVICES, RYAN | NORA [...] [facility] | [address] | [place] [address] | | | SERVICES, CORE | PARK [...] [facility] | [address] | [place] [address] | | | RYAN ORNELAS | NORA [...] [facility] | [address] | [place] [address] | | | RYAN [place]NELAS | NORA [...] [facility] | [address] | [place] [address] | | | SERVICESRYAN | [address] [...] | | | LABORATORY | | | [place]IAN | | | SERVICES, | | | [...] | + + + + + | [facility] | [address] | [place] [address] | | | SERVICES, RYAN | NORA [...] | Auricula | | First dose on [facility] 12/08/17 at | | | | [...] | | | | | modification) on [facility] 12/08/17 at | | | | [...]
--- OUTSIDE RECORDS SUMMARY | ~2019-10-16 | XMS | Encounter Summary ---
Demographics + + + | Address | [address] | | | [place] [address] | + + + | Home Phone [...] + + | Author | [facility] | + + + | Organization | [facility] | + + + | [...] Team Providers + +------+ + | Care Health Care Aide Name | Role | Phone | + +------+ + | Mary Vazquez PA-C | PCP | | + +------+ + Encounter Details +--------+ + + + + | Date | Type | Department | Care Team | Description | +--------+ + + + + | 07/10/ | Procedure | Diagnostic Imaging | | | | 2018 | Pass | Services at [facility] | | | | | | [address] | | | | | | Nora F[facility] | | | | | | [facility], [address] [place] [address] | | | | | | [place], [place] | | | | | | [address] | | | | | | [phone] | | | +--------+ + + + [...]
--- OUTSIDE RECORDS SUMMARY | ~2019-10-16 | XMS | Encounter Summary ---
Demographics + + + | Address | [address] | | | [place] [address] | + + + | Home Phone | | + + + | Preferred Language | Unknown | + + + | Marital Status | | + + + | Anglican Affiliation | Unknown | + + + [...] | +--------+ + + + + | 01/15/ | Orders Only | [facility] | [place] Lucille L, | | | 2014 | | CARDIOLOGY [address] | RN | | | | | [place], | | | | | | [place] [address] | | | | | | [phone] | | | +--------+ + + + [...]
--- OUTSIDE RECORDS SUMMARY | ~2019-10-16 | XMS | Encounter Summary ---
Demographics + + + | Address | [address] | | | [place] [address] | + + + | Home Phone | | + + + | Preferred Language | Unknown | + + + | Marital Status | | + + + | Pentecostal Affiliation | Unknown | + + + | Race | White | + + + | Ethnic Group | Not or | + + + Author + + + | Author | [facility] | | | and [place] | + + + | Organization | [facility] | | [...] Team Providers + +------+ + | Care Sr. Director Product Management Name | Role | Phone | + +------+ + PCP | Unavailable | + +------+ + Encounter Details +--------+ + + + + | Date | Type | Department | Care Team | Description | +--------+ + + + + | 06/12/ | Hospital | [facility] | | | | 1991 | Encounter | [facility] | | | | | | [address] | | | | | | [place] | | | | | | [address] | | | | | | [phone] | | | +--------+ + + + [...]
--- OUTSIDE RECORDS SUMMARY | ~2019-10-16 | XMS | Encounter Summary ---
Demographics + + + | Address | [address] | | | [place] [address] | + + + | Home Phone | | + + + | Preferred Language | Unknown | + + + | Marital Status | | + + + | Yarsanism Affiliation | MET | + + + | Race | White | + + + | Ethnic Group | Not or | + + + Author + + + | Author | [facility] | + + + | Organization | [facility] | + + + | [...] Team Providers + +------+ + | Care Grievance And Appeals Coordinator Name | Role | Phone | + [...] | Stay [address] | [address] [facility] [place] | | | | | [address] | [id number] | | | | | Mailcode: [id number] | | | | | | Darius Simpson | | | | | | [address] [place], [place] | | | | | | [address] | | | | | | [phone] | | | +--------+---------+ + + + [...] hand; 20; Right; Hand; | Amaya Norton, [facility] | Almita Butler, | | Periph | [...] or walk. Surgery check-in location: Admitting - [facility], ninth floor [facility] Surgery Check in Time: The Preoperative Medicine [...] it is after office hours, call the [facility] getter operator at [phone] and ask them to page him or [...] medical history: CVA, SAH in 2007: Stable CERTIFIED LEGAL INVESTIGATOR shunt, s/p hydrocephalous 2008 (right): Pt is [...] Allergies reviewed / updated Allergies Allergen Reactions Forsan Tar Hives Betadine [Povidone-Iodine (With Soap)] Unknown [...] Bladder suspension 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 Training Executive shunt Tympanoplasty 1987 Lumpectomy of left breast [...] normal Turgor: turgor normal Implants: shunt, Comments: CERTIFIED LEGAL INVESTIGATOR shunt right side BMI 23.8 LABS & DATA REVIEWED/ORDERED: CBC and CMP drawn in [place] 2 weeks ago. Results were not available [...] air. CVA - SAH, 2007: Stable - CERTIFIED LEGAL INVESTIGATOR shunt (right) s/p hydrocephalous in 2008. She [...] to this patient's care. GRANT Joy FNP [facility] PREOPERATIVE MEDICINE CLINIC AT [facility] 4TH FLOOR DAY STAY [address] [facility] [address] I counseled the pt regarding perioperative [...] + +--------+ + + | COMMUNICATION TO [facility] | Procedures | Routin | Preop [...] DEPT OF | [address] | [place], [place] | | | CARDIOLOGY | [address] | [address] | | + + + + + [...]
--- OUTSIDE RECORDS SUMMARY | ~2019-10-16 | XMS | Encounter Summary ---
Demographics + + + | Address | [address] | | | [place] [address] | + + + | Home Phone [...] | | | Surgery Services at | [facility] [address] | glands (Primary Dx) | | | | [address] | [place], [place] | | | | | [address] | [address] | | | | | Physician's | [phone] | | | | | Tatiana, 2nd floor | | | | | | [place], [place] | | | | | | [address] | | | | | | [phone] | | | +--------+---------+ + + + [...] Note Time: 06/06/2014 8:30 AM Status: Signed Missile And Missile Checkout Technician: Beny Cruz MD (Physician) Please see Dr. [...] Note Time: 05/28/2014 12:11 PM Status: Signed Missile And Missile Checkout Technician: Beny Cruz MD (Physician) OTOLARYNGOLOGY/HEAD AND NECK [...] Bladder suspension 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 Animal Ride Attendant shunt Right tympanoplasty (2-3 decades ago per [...] Supple, intact ROM; no thyroid masses palpable. LEGAL SERVICE SPECIALIST shunt apparent under skin coursing through posterior [...] Patient was seen and discussed with Dr. Crzu. Plan subject to change, based on heidi aquino. Kamari Sunshine MD Otolaryngology/Head and Neck Surgery PGY-1, Pager: [phone] documented in this e ncounter Miscellaneous Notes [...]
--- OUTSIDE RECORDS SUMMARY | ~2019-10-16 | XMS | Encounter Summary ---
Demographics + + + | Address | [address] | | | [place] [address] | + + + | Home Phone [...] Team Providers + +------+ + | Care Shearer Screen Measurer And Trimmer Name | Role | Phone | [...] | Head and Neck | [address] [facility] | | | | | Surgery Services at | [facility] [address] | | | | | [facility] [address] | [place], [place] | | | | | [facility] for | [address] | | | | | Health and Healing, | [phone] | | | | | Building | | | | | | [place], [place] | | | | | | [address] | | | | | | [phone] | | | +--------+ + + + [...]
--- OUTSIDE RECORDS SUMMARY | ~2019-10-16 | XMS | Encounter Summary ---
Demographics + + + | Address | [address] | | | [place] [address] | + + + | Home Phone | | + + + | Preferred Language | Unknown | + + + | Marital Status | | + + + | Confucianism Affiliation | Unknown | + + + | Race | White | + + + | Ethnic Group | Not or | + + + Author + + + | Author | [facility] | | | and [place] | + + + | Organization | [facility] | | | [...] Team Providers + +------+ + | Care Vegetable Cutter Name | Role | Phone | [...] CATH | | | | [address] | [place] | | | | | [place], [place] | [address] | | | | | [address] | | | | | | [phone] | | | +--------+---------+ + + + [...] [place] She presented to the ER at [facility]. She awoke this AM at [...] chest pain. She was taken to the laboratory equipment installer. successful PCI of the LAD Bare metal [...] patch on as this could result in ME. She was able to tolerate nebulizer. She [...] and the first on is negative. Echo: [facility] ECHOCARDIOGRAM REPORT STUDY DATE: 12/28/2014 PATIENT NAME: Cielo Bell : 1950 PCP: Lance Pandya CLINICAL HISTORY/DIAGNOSIS: ME A transthoracic echocardiogram with M-mode, pulsed-wave and [...] the affected wrist straigh t. Call the scada engineer who did your procedure as soon as possible. Other Concerns Call the scada engineer who did your procedure if you have: Any of these Signs of Infection: Redness Fever higher than 101.5 degrees F or 38.6 degrees C Change in the bruise or lump. Numbness in your arm or wrist. Severe pain that is not relieved by Tylenol. Follow-up Care Continue your prescribed medications unless instructed otherwise. Follow-up with your primary health care provider and scada engineer after your procedure, as instructed. If you have questions or concerns about your cardiac catheterization procedure, call the number below. AttachmentsThe following attachments cannot be sent through Care Everywhere.CANCER, PREVENT ING (POLISH)COPD, WHAT IS (POLISH)HEART ATTACK, SYMPTOMS OF A (POLISH)LIVING WELL AFTER A HEART ATTACK (POLISH)LUNG DISEASE, CHRONIC: CONTROLLING STRESS (POLISH)LUNG DISEASE, CH RONIC: STARTING AN EXERCISE PLAN (POLISH)LUNG DISEASE, CHRONIC: TIPS FOR QUITTING SMOKING ( POLISH)QUESTIONS FOR YOUR HEALTH CARE TEAM, HEART ATTACK (POLISH)SMOKE FREE,BENEFITS OF LIVING (POLISH)SMOKE,WHY DO YOU (POLISH)SMOKING CESSATION (POLISH)SMOKING WITHDRAWAL, COPING WITH (POLISH)SMOKING,GETTING SUPPORT FOR QUITTING (POLISH)SMOKING,HEALTH EFFEC TS OF (POLISH)SMOKING,PLANNING TO QUIT (POLISH)SMOKING,TIPS FOR QUITTING (CARDIOVASCUL AR) (POLISH)EXERCISING AFTER A HEART ATTACK (POLISH)documented in this encounter Medications at Time of [...] the original. CARDIOLOGY PROGRESS NOTE on 12/29/2014 [facility] Pt. Name/Age/: Cielo Nurard 64 y.o. 1950 Med. Record Number: [id number] Primary Care Physician: Lance Pandya Date of [...] 75 No results for input(s): PHART, PO2ART, [place]1XSE, R8ZBRZRT, BEART in the last 168 hours. Recent Labs Lab 12/29/14 0408 12/28/14 0745 12/28/14 0007 TROPONINI 75.39* >100.00* 28.90* Recent Labs Lab 12/29/14407 INR 1.01 Micro results last 72hrs: Microbiology Results (72 hrs) Procedure Component Value Units Date/Time Culture, Respiratory, Lower, Smear [[id number]] Collected: 12/28/14 1236 Order Status: Completed Lab Status: Preliminary result Updated: 12/28/14 1447 Specimen Information: Respiratory / Sputum, expectorated Gram Stain Result 3+ White Blood Cells 1+ Epithelial cells 3+ Gram positive cocci 2+ Gram negative diplococci 1+ Gram negative rods Culture, MRSA [[id number]] Collected: 12/28/14 0808 Order Status: Completed Lab [...] oxyCODONE Electronically signed by: Chana Rangel MD [facility] 12/29/2014 8:06 [facility] Portions of this chart may have been created with NsGene voice recognition software. Occasi onal wrong-word or [...] RN - 12/28/2014 11:09 AM PSTDischarge cardiac laboratory equipment installer education performed . Patient given labor utilization superintendent plavix folder. Patient and patient's family at [...] Nausea And Vomiting Codeine Nausea And Vomiting Forrest Tar Hives Povidone Iodine Hives Sulfa Antibiotics [...] in the radial right ECG: Evolving anterior ME LAB RESULTS: LIPID No results found for: [...] ECGs available Confirmed by CHANA RANGEL MD ([id number]) on 12/28/2014 6:53:08 AM Troponin I Result [...] in Anterior leads Serial changes of evolving ME Confirmed by CHANA RANGEL MD ([id number]) on 12/28/2014 6:55:04 AM Comprehensive Metabolic Panel [...] Lavender Top Tube Done ASSESSMENT: Acute anterior ME with delayed presentation H/O 2 cerebral aneurysms (coil and clip 2007) HTN Dyslipidemia PLAN: Discussed smoking cessation Discussed medical Rx Echo Electronically signed by: Chana Rangel MD [facility] 12/28/2014 Portions of this chart may have been created with NsGene voice recognition software. Occasi onal wrong-word or [...] [place] She presented to the ER at [facility]. She awoke this AM at [...] and 1 coiled. She also has a LAUNDRY MACHINE MECHANIC shunt that is not functioning and [...] Nausea And Vomiting Codeine Nausea And Vomiting Forrest Tar Hives Povidone Iodine Hives Sulfa Antibiotics [...] normal right radial Skin benign ECG: Anterior ME with Q waves LAB RESULTS: LIPID Not available CHEMISTRY Gluc 127 Creat 0.82 K 4.1 HEMATOLOGY No results found for: WBC 13.1, WBCEX, HGB 13.8 HGBEX, HCT, HCTEX, PLT, 233 I reviewed records from [facility] and [facility] ASSESSMENT: Anterior ME - ongoing pain H/O cerebral aneurysms H/O [...] patient. Electronically signed by: Chana Rangel MD [facility] 12/27/2014 Portions of this chart may have been created with NsGene voice recognition software. Occasi onal wrong-word or [...] Review . Outcome: Progressing Patient lives in [place], [place] and will be discharging home today. PCP is Dr. Pandya. Will follow up with laboratory equipment installer to make a appointment. No further needs. Electronically signed by: JUSTINA Guillory 12/29/2014 12:48 After speaking with MARCELL Garcia, she stats that patient needed a nebulizer at discharge. Ashkan glass faxed the Rx, face sheet to [facility] in [place]. She spoke with Vivek to set this [...] on heparin for the ambulance ride from [place] until she went down for stent placement. [...] consent form sig gem. Patient transported to laboratory equipment installer with RN and monitor without incident. Electronically [...] | | | | | | type ([facility]) H/O | | | | | | cerebral aneurysm | | | | | | repair NSTEMI | | | | | | (non-ST elevated | | | | | | myocardial | | | | | | infarction) ([facility]) | | + +------+--------+ + + [...] ST. | [address] | [place] | [phone] | | [facility] | | [address] | | | - LABORATORY | | [...] + | [facility] | [address] | [place] | [phone] | | [facility] | | [address] | | | - LABORATORY | | [...] [address] | [place] | [phone] | | [facility] | | [address] | | | - LABORATORY | | [...] | | MEDICAL | | | | mL/min/1.19i0Fdom than | | CENTER - | | [...] + | [facility] | [address] | [place] | [phone] | | [facility] | | [address] | | | - LABORATORY | | [...] + | [facility] | [address] | [place] | [phone] | | [facility] | | [address] | | | - LABORATORY | | | | + + + + + ECHO Complete (12/28/2014 11:00 AM PST) + + | Specimen | + + | | + + + + + | Narrative | Performed At | + + + | [facility] ECHOCARDIOGRAM REPORT | | | STUDY DATE: 12/28/2014 PATIENT NAME: Cielo Bell | | | : 1950 PCP: Lance Pandya | | | CLINICAL HISTORY/DIAGNOSIS: ME A transthoracic echocardiogram | | | with [...] Hugo Garcia MD | | | PhD [facility] 12/28/2014 11:57 Internal Specialist: Karol | | | MARIANA Dawson | [...] ST. | [address] | [place] | [phone] | | [facility] | | [address] | | | - LABORATORY | | [...] [address] | [place] | [phone] | | [facility] | | [address] | | | - LABORATORY | | [...] + | [facility] | [address] | [place] | [phone] | | [facility] | | [address] | | | - LABORATORY | | [...] ST. | [address] | [place], [place] | [phone] | | [facility] | | [address] | | | - LABORATORY | | [...] mL/min/1.73m2 | [facility] | | | Malaysian | RATE,ESTIMATED | | MEDICAL | | | | mL/min/1.61j9Wmya than | | CENTER - | | [...] ST. | [address] | [place], [place] | [phone] | | [facility] | | [address] | | | - LABORATORY | | [...] [address] | [place] | [phone] | | [facility] | | [address] | | | - LABORATORY | | [...] MD | | | | | | ([id number]) on 12/28/2014 | | | | | [...] Performed At | + + + | [facility] Percutaneous Coronary Intervention | | | Report PATIENT NAME: Cielo Bell DATE OF : | | | 1950 DATE OF PROCEDURE: | | | 12/28/2014 | | | PRIMARY | | | CARE PROVIDER: Lance Pandya PARTS CATALOGUER: Chana Rangel, | | | , [facility] PRE-PROCEDURE DIAGNOSIS: NSTEMI with [...] | | using a micropuncture kit. A 5-Lao PAPA guide catheter was | | | [...] | | lifetime Electronically authenticated and signed Chnaa Gandhi | | | MD Bell 12/28/2014 2:07 Portions of this chart were created | | | with NsGene voice recognition software. Occasional wrong-word or | [...] ST. | [address] | [place], [place] | [phone] | | [facility] | | [address] | | | - LABORATORY | | [...] + | [facility] | [address] | [place] | [phone] | | [facility] | | [address] | | | - LABORATORY | | [...] [address] | [place] | [phone] | | [facility] | | [address] | | | - LABORATORY | | [...] [address] | [place] | [phone] | | [facility] | | [address] | | | - LABORATORY | | [...] MD | | | | | | ([id number]) on 12/28/2014 | | | | | [...]
--- OUTSIDE RECORDS SUMMARY | ~2019-10-16 | XMS | Encounter Summary ---
Demographics + + + | Address | [address] | | | [place] [address] | + + + | Home Phone [...] Team Providers + +------+ + | Care Furniture Assembler Name | Role | Phone | [...] | | | | Loop [facility] | [place], [place] | | | | | [place], [facility] floor | [address] | | | | | [place], [place] | [phone] | | | | | [address] | | | | | | [phone] | | | +--------+ + + + [...]
--- OUTSIDE RECORDS SUMMARY | ~2019-10-16 | XMS | Encounter Summary ---
Demographics + + + | Address | [address] | | | [place] [address] | + + + | Home Phone [...] | | + + +---------+ + | Augusot Ray | ECON | Unknown | | + + +---------+ + Care Team Providers + +------+ + | Care Net Software Architect Name | Role | Phone | [...] | RN | | | | | [place], | | | | | | [place] [address] | | | | | | [phone] | | | +--------+ + + + [...]
--- OUTSIDE RECORDS SUMMARY | ~2019-10-16 | XMS | Encounter Summary ---
Demographics + + + | Address | [address] | | | [place] [address] | + + + | Home Phone [...] Providers + +------+ + | Care Nurse Aide Evaluator Name | Role | Phone | + [...] SCALP, SCALP | | | | [facility] | [address] [place], | [place] | | | | Hospital Admitting | [place] [address] | | | | | Desk Located on the | [phone] | | | | | 9th floor | | | | | | [place], [place] | | | | | | [address] | | | +--------+---------+ + + + [...] by ENT Brief Hospital Course: Preadmitted to [facility] ED on 09/13 for scalp [...] prescribed 10/04/2018 10:30 AM MD NITESH Hansen [facility] Otolaryngolo HOW TO REACH US: Tuesday- Tuesday from 8:00am to 4:30pm, call the Otolaryngology clinic at [phone]. After hours, weekends, and holidays, call the [facility] hospital sound truck operator at [phone] and as k to have the ENT doctor on-call paged Contact information for after-discharge halfway Care [facility] . Service: Home Health Services Contact information [address], [address] [address] Future Appointments Date Time Provider Department Center 10/04/2018 10:30 AM MD NITESH Hansen [facility] Otolaryngolo Pertinent imaging:In EPIC Pertinent labs: [...] Pertinent microbiology/pathology: CULTURE, BLOOD BACTI & YEAST [facility] [[id number]] [facility] CORE LAB Collected: 09/20/18 0647 Lab Status: Preliminary result Specimen: Blood Updated: 09/22/18 0055 CULTURE RESULT No growth to date. [facility] CORE LAB CULTURE, AFB (ALL SPEC TYPES EXCEPT BLOOD) [[id number]] LAB Collected: 09/19/18 1428 Lab Status: Preliminary result Specimen: Tissue from Head Updated: 09/20/18 0441 Narrative: AFB Smear: AFB not detected CULTURE, TISSUE [[id number]] (Abnormal) KP LAB Collected: 09/19/18 1428 Lab [...] CULTURE, FUNGAL EXCEPT BLOOD, SKIN, HAIR, NAIL [[id number]] LAB Collected: 09/19/18 1428 Lab Status: In process Specimen: Tissue from Head Updated: 09/19/18 1453 CULTURE, AFB (ALL SPEC TYPES EXCEPT BLOOD) [[id number]] LAB Collected: 09/19/18 141 Lab Status: Preliminary result Specimen: Swab from Head Updated: 09/20/18 0441 Narrative: AFB Smear: AFB not detected CULTURE, WOUND DEEP W/ ANAEROBE [[id number]] (Abnormal) LAB Collected: 09/19/18 1412 Lab Status: [...] CULTURE, FUNGAL EXCEPT BLOOD, SKIN, HAIR, NAIL [[id number]] LAB Collected: 09/19/18 1412 Lab Status: In process Specimen: Swab from Head Updated: 09/19/18 1454 CULTURE, BLOOD BACTI & YEAST [facility] [[id number]] [facility] CORE LAB Collected: 09/19/18 0604 Lab Status: Preliminary result Specimen: Blood from Antecubital - right Updated: 09/21/18 0 055 CULTURE RESULT No growth to date. [facility] CORE LAB CULTURE, BLOOD BACTI & YEAST [facility] [[id number]] [facility] CORE LAB Collected: 09/18/18 0535 Lab Status: Preliminary result Specimen: Blood from Hand - left Updated: 09/20/18 0055 CULTURE RESULT No growth to date. [facility] CORE LAB CULTURE, BLOOD BACTI & YEAST [facility] [[id number]] [facility] CORE LAB Collected: 09/17/18 09 Lab Status: Preliminary result Specimen: Blood from Hand - left Updated: 09/19/18 0055 CULTURE RESULT No growth to date. [facility] CORE LAB CULTURE, BLOOD BACTI & YEAST [facility] [[id number]] (Abnormal) [facility] CORE LAB Collected: 09/14/18 002 Lab Status: Edited Result - FINAL Specimen: Blood from Peripheral Updated: 09/15/18 0502 CULTURE RESULT [facility] CORE LAB Staphylococcus epidermidisPanic Ref Range: GRAM STAIN Gram Positive BacilliPanic [facility] CORE LAB [facility] CORE [facility] Gram positive cocci in clustersPanic Ref Range: Comment: This is an appended report. These results have been appended to a previously yovanny l verified report. Narrative: Growth in Aerobic Bottle - GPB only. Growth in Anaerobic Bottle - GPC and GPB. Organism Identified by Molecular ID, to be confirmed by culture. BLOOD CULTURE WORKUP [[id number]] (Abnormal) LAB Collected: 09/14/1824 Lab Status: Final [...] and Neck Surgery Mail Code PV01 [address] [place] [address] Pager [phone] Consult/Night/Weekend Pager: [phone] documented in this encounter Discharge Instructions Instructions [...] RLB Gram Stain...........: Gram smear performed at [facility]. Culture: Final Report: No growth [...] Please contact the neurosurgery cooper on-call pager [phone] with questions. Saskia Conway MD Neurosurgery PGY1 Pager: [phone] Saskia Tinoco MD - 0 09/21/2018 11:32 AM PDT NEUROSURGERY PROGRESS NOTE Attending Physician: Ata White MD (ENT); Paramjit Huber MD (NSGY) INTERVAL EVENTS: Planning to be discharged tomorrow and stay with her brother in [place] OBJECTIVE: Last 24 hour min/max Temp: 36.7 [...] RLB Gram Stain...........: Gram smear performed at [facility]. Culture: Final Report: No growth [...] Please contact the neurosurgery cooper on-call pager [phone] with questions. Saskia Cnoway MD Neurosurgery PGY1 Pager: [phone] Angie Piña PA-C - 09/21/2018 8:23 AM PDT DOS: 09/21/2018 Head and Neck Surgery Inpatient Daily Progress Note: Primary Care Provider: Mary Vazquez PA-C Admission Date: 09/13/2018 GLORIA MARSHA CANTUARD, [id number] Hospital Day #8 SUBJECTIVE INTERVAL EVENTS: - [...] and Neck Surgery Mail Code PV01 [address] [place], [place] [id number] Pager [phone] Consult/Night/Weekend Pager: [phone] Saskia Tinoco MD - 09/20/2018 7:54 AM [...] RLB Gram Stain...........: Gram smear performed at [facility]. Culture: Final Report: No growth [...] Please contact the neurosurgery cooper on-call pager [phone] with questions. Saskia Conway MD Neurosurgery PGY1 Pager: [phone] Angie Piña PA-C - 09/20/2018 6:58 AM PDT DOS: 09/20/2018 Head and Neck Surgery Inpatient Daily Progress Note: Primary Care Provider: Mary Vazquez PA-C Admission Date: 09/13/2018 GLORIA ADHIKARI, [id number] Hospital Day #7 SUBJECTIVE INTERVAL EVENTS: - [...] #Dispo: Pending clinical course. Code Status: FULL ANGEI FRENCH PA-C Department of Otolaryngology/Head and Neck Surgery Mail Code PV01 [address] [place] [address] Pager [phone] Consult/Night/Weekend Pager: [phone] Hernandez Mistry MD - 09/19/2018 5:58 PM PDTNeurosurgery Post-Op Check 09/19/2018 5:58 PM Examined in 10k Procedure performed: wound revision, mesh explant Awake, alert, oriented to person, place, time Appropriately interactive PERRL, EOMI, FS, TML BUE/BLE 06/25 No drift SILT Incision c/d/i. LAZARA bloody. Please page [phone] with any questions Hernandez Wells M.D. Neurosurgery PGY-2 Angie Piña PA-C - 09/19/2018 8:07 AM PDT DOS: 09/19/2018 Head and Neck Surgery Inpatient Daily Progress Note: Primary Care Provider: Mary Vazquez PA-C Admission Date: 09/13/2018 GLORIA ADHIKARI, [id number] Hospital Day #6 SUBJECTIVE INTERVAL EVENTS: - [...] and Neck Surgery Mail Code PV01 [address] [place] [address] Pager [phone] Consult/Night/Weekend Pager: [phone] Nettie Knowles PA - 09/19/2018 7:21 AM [...] RLB Gram Stain...........: Gram smear performed at [facility]. Culture: Final Report: No growth after 3 days. Final Report 04/29/2008 Corrected CSF Culture Source...............: Cerebrospinal Fluid RLB Gram Stain...........: Gram smear performed at [facility]. Culture: Rare Methicillin resistant Staphylococcus aureus Final ID MRSA Cefazolin R Clindamycin S Erythromycin R Oxacillin R Penicillin R Tetracycline S Trimeth/Sulfa S Vancomycin S Final Report Comment: Test performed at [facility]. 03/07/2008 Corrected CSF Culture Source...............: Cerebrospinal Fluid RLB Gram Stain...........: Gram smear performed at [facility]. Culture: Final Report: No growth after 3 days. Final Report Comment: Test performed at [facility]. 03/03/2008 Corrected CSF Culture Source...............: Cerebrospinal Fluid RLB Gram Stain...........: Gram smear performed at [facility]. Culture: Final Report: No growth after 3 days. Final Report Comment: Test performed at [facility]. 03/03/2008 Corrected Wound Culture Source...............: Skin Abscess RLB Gram Stain...........: Rare Squamous epithelial cells Rare PMN's Rare Gram positive cocci Culture: 1+ Methicillin resistant Staphylococcus aureus Final ID MRSA Cefazolin R Clindamycin S Erythromycin R Oxacillin R Penicillin R Tetracycline S Trimeth/Sulfa S Vancomycin S Final Report Resulted: 03/05/08 RLB ([facility]) [facility] [address] [place] [address] Comment: Test performed at [facility]. CULTURE RESULT Date Value [...] free tissue flap (08/03/18)no w presenting to [facility] for non-viable flap and concern [...] wound cultures. Cares per ENT. ANSON MULLINS [facility] [address] [address] [id number] ettie Jaramillo PA - 09/18/2018 11:09 AM [...] RLB Gram Stain...........: Gram smear performed at [facility]. Culture: Final Report: No growth after 3 days. Final Report 04/29/2008 Corrected CSF Culture Source...............: Cerebrospinal Fluid RLB Gram Stain...........: Gram smear performed at [facility]. Culture: Rare Methicillin resistant Staphylococcus aureus Final ID MRSA Cefazolin R Clindamycin S Erythromycin R Oxacillin R Penicillin R Tetracycline S Trimeth/Sulfa S Vancomycin S Final Report Comment: Test performed at [facility]. 03/07/2008 Corrected CSF Culture Source...............: Cerebrospinal Fluid RLB Gram Stain...........: Gram smear performed at [facility]. Culture: Final Report: No growth after 3 days. Final Report Comment: Test performed at [facility]. 03/03/2008 Corrected CSF Culture Source...............: Cerebrospinal Fluid RLB Gram Stain...........: Gram smear performed at [facility]. Culture: Final Report: No growth after 3 days. Final Report Comment: Test performed at [facility]. 03/03/2008 Corrected Wound Culture Source...............: Skin Abscess RLB Gram Stain...........: Rare Squamous epithelial cells Rare PMN's Rare Gram positive cocci Culture: 1+ Methicillin resistant Staphylococcus aureus Final ID MRSA Cefazolin R Clindamycin S Erythromycin R Oxacillin R Penicillin R Tetracycline S Trimeth/Sulfa S Vancomycin S Final Report Resulted: 03/05/08 RLB ([facility]) [facility] [address] [place] [address] Comment: Test performed at [facility]. CULTURE RESULT Date Value [...] tissue flap (08/03/18) now pres enting to [facility] for non-viable flap and concern for underlying infection/involvement of mesh cranioplasty.Plan for combined surgery (ENT+ NSG) tomorrow. PLAN: OR tomorrow for wound washout, explant of cranioplasty, flap per ENT. NPO after MN. Type and Screen; INR; CBC; BMP. ABX (Zosyn + Vanc) per primary service. Hold prophylactic lovenox. Pre op note forthcoming. ANSON MULLINS [facility] [address] [address] [address] Saskia Tinoco MD - 09/18/2018 10:58 AM [...] Saskia Conway MD Neurological Surgery R1 Pager: [phone] Angie Piña PA-C - 09/18/2018 8:02 AM PDT DOS: 09/18/2018 Head and Neck Surgery Inpatient Daily Progress Note: Primary Care Provider: Mary Vazquez PA-C Admission Date: 09/13/2018 GLORIA ADHIKARI, [id number] Hospital Day #5 SUBJECTIVE INTERVAL EVENTS: - [...] and Neck Surgery Mail Code PV01 [address] [place] [address] Pager [phone] Consult/Night/Weekend Pager: [phone] Carlos Eduardo Alfonso MD - 0 09/17/2018 10:17 AM PDT DOS: 09/17/2018 Head and Neck Surgery Inpatient Daily Progress Note: Primary Care Provider: Mary Vazquez PA-C Admission Date: 09/13/2018 GLORIA ADHIKARI, [id number] Hospital Day #4 SUBJECTIVE INTERVAL EVENTS: - [...] - Head and Neck Surgery, PGY1 Pager [phone] Overnight/weekend consults pager [phone] I saw and evaluated the patient. I agree with the findings and the plan of care as low benitez in the resident/provider note. Carlos Eduardo Maher MD Social Secretary Head and Neck Surgical Oncology Microvascular Reconstructive [...] mg 500 mg intravenous Q12H ASSESSMENT: Gloria dAhikari is a 68 y.o. female with a [...] Please contact the neurosurgery cooper on-call pager [phone] with questions. Alvin Mcclure MD Neurosurgery PGY1 Pager [phone] i, Carlos Eduardo Donald MD - 09/16/2018 8:36 AM PDT DOS: 09/16/2018 Head and Neck Surgery Inpatient Daily Progress Note: Primary Care Provider: Mary Vazquez PA-C Admission Date: 09/13/2018 GLORIA MARSHA ONOFRE, [id number] Hospital Day #3 SUBJECTIVE INTERVAL EVENTS: - [...] the resident/provider note. Carlos Eduardo Maher MD Social Secretary Head and Neck Surgical Oncology Microvascular Reconstructive [...] Please contact the neurosurgery cooper on-call pager [phone] with questions. Brenda Barillas MD Neurosurgery PGY-1 Pager: [phone] Associated attestation - Alfreda Mccollum MD - 09/16/2018 10:52 AM PDTI agree with the re sident note above. Any changes if any are noted below. Alfreda Mccollum MD Skull Base Fellow Department of Neurological Surgery [facility] [place], [place] Angie rFench PA-C - 09/15/2018 8:35 AM PDT DOS: 09/15/2018 Head and Neck Surgery Inpatient Daily Progress Note: Primary Care Provider: Mary Vazquez PA-C Admission Date: 09/13/2018 GLORIA ADHIKARI, [id number] Hospital Day #2 SUBJECTIVE INTERVAL EVENTS: No [...] ANGIE FRENCH PA-C Otolaryngology-Head and Neck Surgery [facility] [place] Pager [phone] Shelly Jenkins RT - 09/14/2018 2:59 PM [...] to home on 07/13. Ms Adhikari's surgi eagel culture was notable for growth of staph [...] nning. Past Histories Allergies: Allergies Allergen Reactions Morland Tar Hives Betadine [Povidone-Iodine (With Soap)] Rash Cipro [Ciprofloxacin] Nausea and Vomiting Codeine Hcl Nausea and Vomiting Sulfa (Sulfonamide Antibiotics) Erythema Past Surgical History Procedure Laterality Date Partial thyroidectomy Right Hysterectomy Bladder suspension 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 Rail Crew Member shunt Tympanoplasty Right 1987 Lumpectomy of left breast 1979 Coronary stent placement 12/28/2014 status post stent placement in the mid LAD Removal of senior svp shunt Cholecystectomy Past Medical History: Diagnosis Date Abnormal LFTs (liver function tests) CAD in [place] artery s/p NSTEMI 12/27/2014; status post stent [...] for input(s): FIO2, PH, PCO2, PO2, HCO3, [id number], [id number], U2NKDCQUP in the l ast 720 hours. CSF [...] RLB Gram Stain...........: Gram smear performed at [facility]. Culture: Final Report: No growth after 3 days. Final Report 04/29/2008 CSF Culture Source...............: Cerebrospinal Fluid RLB Gram Stain...........: Gram smear performed at [facility]. Culture: Rare Methicillin resistant Staphylococcus [...] e Dillan Bridges MD Neurosurgery, PGY-2 Pager [phone] Risk and Morbidity Patient Risk Modifiers - Including but not limited to. Age: 68 y.o. female DNR: Full Code Transfer status/urgency : From Outside Hospital : From [facility] ER: Symptom Onset: More than 12 hours (09/13/18 7) Patient Acuity: 3 (09/13/182036) Destination: Acute (09/13/182036) Palliative/end of Life Care :No First GCS and if Mechanically Ventilated/Intubated: Best Motor Response: 6-->(M6) obeys commands (09/13/182036) Best Verbal Response: 5-->(V5) oriented (09/13/182036) Best Eye Response: 4-->(E4) spontaneous (09/13/182036) Score ([place] Coma Scale): 15 (09/13/182036) Last GCS and if Mechanically Ventilated/Intubation: Best Motor Response: 6-->(M6) obeys commands (09/14/18 1230) Best Verbal Response: 5-->(V5) oriented (09/14/18 1230) Best Eye Response: 4-->(E4) spontaneous (09/14/18 1230) Score (Chen Coma Scale): 15 (09/14/18 1230) Comatose State: If GCS<9 Then patient by definition is in a comatose state Score ([place] Coma Scale) Min: 15 Max: 15 Loss [...] weeks. Continuous tobacco abuse Coronary arteriosclerosis in [place] artery 03/06/2015 History of non-ST elevation myocardial [...] facial drooping at home and went to [facility] ED, CT head that was reportedly negative. At ED it was noted she had foul smelling disch arge from wound, contacted her [facility] ENT and referred to [facility] ED. No records of ED [...] CMP WNL, lactate 1.4. Imaging from OSH ([facility] in [place]) being pushed ENT evaluated and await final recs Once stable, the patient was transferred to the Emergency Department Observation Unit with a diagnosis of possible surgical wound infection for continuation of care including observat ion PAST MEDICAL HISTORY: Past Medical History: Diagnosis Date Abnormal LFTs (liver function tests) CAD in [place] artery s/p NSTEMI 12/27/2014; status post stent [...] Bladder suspension 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 Rail Crew Member shunt Tympanoplasty Right 1987 Lumpectomy of left breast 1978 Coronary stent placement 12/28/2014 status post stent placement in the mid LAD Removal of senior svp shunt Cholecystectomy MEDICATIONS: Patient's Medications New Prescriptions [...] medications on file ALLERGIES: Allergies Allergen Reactions [place] Tar Hives Betadine [Povidone-Iodine (With Soap)] Rash [...] color, warm, dry. Consults: ENT ASSESSMENT/PLAN: Gloria Ahdikari is a 68 y.o. 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 1. Possible wound infection- no s/s of SIRS/sepsis, afebrile, no leukocytosis, no indicatio n for abx - ENT to re-eval in AM - NPO at NE - images from OSH being pushed to [...] Disposition: TBD after ENT evaluation ANSON Simon [facility] EMERGENCY DEPARTMENT [address] [place], [place] [id number] documented in this enco unter Procedure Notes [...] columba lied to it. MD CHANDRIKA Hansen/NGUYEN /[id number] signed by Ata White MD at 09/27/2018 2:04 PM PDTWax , MD Ata - 09/22/2018 11:27 AM PDTAssociated Order(s): OPERATION RECORDDate of Service: 0 09/19/2018 Attending Surgeon:Ata White MD Pole Classifier(s):Augusto Shaikh MD. Preoperative Diagnosis: Partially necrotic latissimus [...] to recovery room. Ata White MD MW/MODL /[id number] signed by Ata White MD at 09/26/2018 6:17 PM PDTSan cory, Alfreda Rondon MD - 09/19/2018 5:44 PM PDTAssociated Order(s): OPERATION RECORDProcedure(s ): OPERATION RECORDDate of Procedure: 09/19/18 Attending Surgeon: Alfreda Mccollum MD Pole Classifier(s): Diana Richey MD, Dillan Bridges MD Preoperative [...] hen brought to the operative room on [facility]. General anesthesia was induced by the neuroanesthesia team. The eyes were taped shut to prevent corneal abrasion. The patient was placed in the supine position, and all pressure points were carefully padded. The head was secured in the horseshoe shrimp header. The hair over the area was clipped. [...] x2. Dillan Bridges MD Neurosurgery, PGY-2 Pager [phone] I certify that I was present for and participated in the critical parts of the procedure. I further certify that I was the principal neurosurgeon for this procedure. Alfreda Mccollum MD Clinical Instructor & Skull Base Fellow [phone] Department of Neurological Surgery [facility], [place] documented in this encounter Consult Notes [...] on stable regimen. Please page clinical pharmacist [phone]) or call central inpatient pharmacy ([phone]) with q uestions. Subjective/Objective: Indication: Cranial flap [...] Pertinent cultures/sensitivities: CULTURE, BLOOD BACTI & YEAST [facility] [[id number]] (Abnormal) [facility] CORE LAB Collected: 09/14/18 0025 Lab Status: Edited Result - FINAL Specimen: Blood from Peripheral Updated: 09/15/18 0502 CULTURE RESULT [facility] CORE LAB Staphylococcus epidermidisPanic Ref Range: GRAM STAIN Gram Positive BacilliPanic [facility] CORE LAB [facility] CORE [facility] Gram positive cocci in clustersPanic Ref Range: Comment: This is an appended report. These results have been appended to a previously yovanny l verified report. Narrative: Growth in Aerobic Bottle - GPB only. Growth in Anaerobic Bottle - GPC and GPB. Organism Identified by Molecular ID, to be confirmed by culture. BLOOD CULTURE WORKUP [[id number]] (Abnormal) [facility] LAB Collected: 09/14/18 0025 Lab [...] for the consult, Felton RowellD, BCPS Pager [phone] oCourtney pérez R Ph - 09/16/2018 12:19 [...] to fourth dose. Please page clinical pharmacist ([phone]) or call central inpatient pharmacy ([phone]) with qu estions. Actual body weight: Weight: [...] Pertinent cultures/sensitivities: CULTURE, BLOOD BACTI & YEAST [facility] [[id number]] (Abnormal) [facility] CORE LAB Collected: 09/14/18 0025 Lab Status: Edited Result - FINAL Specimen: Blood from Peripheral Updated: 09/15/18 0502 CULTURE RESULT [facility] CORE LAB Staphylococcus epidermidisPanic Ref Range: GRAM STAIN Gram Positive BacilliPanic [facility] CORE LAB [facility] CORE LAB Gram positive cocci in clustersPanic Ref Range: Comment: This is an appended report. These results have been appended to a previously yovanny l verified report. Narrative: Growth in Aerobic Bottle - GPB only. Growth in Anaerobic Bottle - GPC and GPB. Organism Identified by Molecular ID, to be confirmed by culture. Thank you for consult, Courtney Mcmullen [facility]. Pager [phone] Julianna Alexander - 0 09/14/2018 11:28 AM PDT Pharmacist Managed Vancomycin: Initial Note Indication: soft tissue infection Goal trough: 10-15 CrCl: 50-60 ml/min Urine output: not collected in the ED Renal function: stable Assessment/Plan: - Start vancomycin 750 mg IV every 12 hours - Pharmacist will order trough level prior to fourth dose. Please page clinical pharmacist [phone]) or call central inpatient pharmacy ([phone]) with qu estions. Actual body weight: Weight: [...] which date the initial concern by her daycare worker to 08/19/18. She repor ts intermittent right eyelid droop and lip discoordination since discharge but yesterday mellissa yusuf was found to have an acute left sided facial droop so her family brought her to the [facility] emergency department. There, she was noted [...] ruptured aneurysm (HCC) 2007 Goiter CAD in [place] artery s/p NSTEMI 12/27/2014; status post stent placement in the mid LAD Abnormal LFTs (liver function tests) MRSA (methicillin resistant staph aureus) culture positive post cariotomy for SAH Hemorrhagic stroke (HCC) 2007 aneurysm PONV (postoperative nausea and vomiting) Past Surgical History Procedure Date Partial thyroidectomy Hysterectomy Bladder suspension 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 Rail Crew Member shunt Tympanoplasty 1987 Lumpectomy of left breast 1979 Coronary stent placement 12/28/2014 status post stent placement in the mid LAD Removal of senior svp shunt Cholecystectomy Social History Tobacco Use Smoking status: Current Every Day Smoker Packs/day: 1.00 Years: 50.00 Pack years: 50.00 Types: Cigarettes Smokeless tobacco: Never Used Tobacco comment: Substance Use Topics Alcohol use: No Alcohol/week: 0.0 oz Drug use: No Family History Problem Relation Additional Family History Mother dementia Cancer Father brain Cancer Brother lung Allergies Allergen Reactions [place]land Tar Hives Betadine [Povidone-Iodine (With Soap)] Rash [...] Resident Physician, PGY2 Otolaryngology, H&N Surgery Pager [phone] This patient's history and examination was discussed with me. I agree with the plan of care that has been recommended. Carlos Eduardo Maher MD Social Secretary Head and Neck Surgical Oncology Microvascular Reconstructive [...] PMH of CAD, NSTEMI s/p stenet, HTN, ORE FIELDER D, SAH from ACOM aneurysm rupture, s/p [...] cranioplasty with the Neurosurgery team 05/09, at [facility] time Dr White/Tesha performed a rotation [...] foul smelling discharge from wound, contacted her [facility] ENT and referred to [facility] ED. No records of ED [...] CMP WNL, lactate 1.4. Imaging from OSH ([facility] in [place]) being pushed ENT evaluated and await final [...] resuming aspirin after surgery Remington Dexter NP [facility] EMERGENCY DEPARTMENT [address] [place] [address] [id number] signed by Remington Dexter NP at 09/14/2018 [...] patient. SBAR to Geovanni HUERTAS and Jacob (instructor of nursing)Electronically si gned by Lisa Cordova [...] appears to be at neurol ogical baseline. [place] sandwich provided. Lisa English RN - 09/14/2018 [...] patient was seen at an ED in [place] yesterday for symptoms o f transient [...] the prescription filled. She d rove to [place] today for ENT evaluation as the ED provider in [place] urged her to do so . On [...] weeks. Continuous tobacco abuse Coronary arteriosclerosis in [place] artery 03/06/2015 History of non-ST elevation myocardial [...] pain Subarachnoid hemorrhage due to ruptured aneurysm ([facility]) 2007 Goiter CAD in [place] artery s/p NSTEMI 12/27/2014; status post stent placement in the mid LAD Abnormal LFTs (liver function tests) MRSA (methicillin resistant staph aureus) culture positive post cariotomy for SAH Hemorrhagic stroke ([facility]) 2007 aneurysm PONV (postoperative nausea and vomiting) Past Surgical History Procedure Date Partial thyroidectomy Hysterectomy Bladder suspension 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 Rail Crew Member 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 Facility-Administered Medications: None Allergies Allergen Reactions Morland Tar Hives Betadine [Povidone-Iodine (With Soap)] Rash [...] 0.72 0.60 - 1.10 mg/dL EGFR - TAJIK >60 >60 mL/min EGFR NON -TAJIK >60 >60 mL/min SODIUM, PLASMA (LAB) 137 [...] imaging reques eli to be pushed from [facility]. ENT evaluated the patient in [...] tained via PIV placement using aseptic technique. Basin Cleaner attempted to obtain second set of b lood cultures via straight stick to the left hand. During draw pt pulled her hand away unexp ectedly almost causing this procedure writer to stick himself with the needle and pt bled on the floor . Bandage + pressure placed on IV site and blood drops cleaned. Defer second set of BC to charles wright in the visit. Ayush Hill RN - 09/13/2018 8:33 PM PDTPt had a flap procedure done 08/06/18 reversing a cranioplasty. Yesterday pt went to [facility] ER after her son noticed some left [...] he wanted patient to be seen in [facility]. Pr drove from [facility] today. Respirations regular and unlabored, pt appears [...] prefers the oxymask vs Nasal Cannula (09/14/182038) [facility] IP NURSE HANDOFF: [facility] hospital course events: Admit: Admitted to [facility] wi th TIA, transferred to [facility] with infection and nonviable flap [...] home and was admitted to [facility] coming to [facility]. - Encourage increased po intake Barriers to discharge: She will discharge today back to [place]. andoff - Danni Hobson RN - 09/21/2018 11:33 PM PDTNursing Handoff Patient Daily Goal: Go outside to 9th floor (09/17/18815) Patient Specific Preferences: prefers the oxymask vs Nasal Cannula (09/14/182038) [facility] IP NURSE HANDOFF: [facility] hospital course events: Admit: Admitted to [facility] wi th TIA, transferred to [facility] with infection and nonviable flap [...] home and was admitted to [facility] coming to [facility]. - Encourage increased po intake Barriers to discharge: She will discharge on Tuesday with her friends and her son will pick her up Tuesday from their house. andoff - Nneka Wesley RN - 09/21/2018 2:41 PM PDTNursing Handoff Patient Daily Goal: Go outside to 9th floor (09/17/18815) Patient Specific Preferences: prefers the oxymask vs Nasal Cannula (09/14/182038) [facility] IP NURSE HANDOFF: [facility] hospital course events: Admit: Admitted to [facility] wi th TIA, transferred to [facility] with infection and nonviable flap (09/13). 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 Infection, multiple flap revisions. July 2018 [...] home and was admitted to [facility] coming to [facility]. - Encourage increased po intake Barriers to discharge: She will discharge on Tuesday with her friends and her son will pick her up Tuesday from their house. andoff - Courtney Hankins RN - 09/21/2018 6:44 AM PDTNursing Handoff Patient Daily Goal: Go outside to 9th floor (09/17/18 0816) Patient Specific Preferences: prefers the oxymask vs Nasal Cannula (09/14/182038) [facility] IP NURSE HANDOFF: [facility] hospital course events: Admit: Admitted to [facility] wi th TIA, transferred to [facility] with infection and nonviable flap (09/13). 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 Infection, multiple flap revisions. July 2018 [...] TIA at home and was admitted to [facility] b efore coming to [facility]. - Encourage increased po intake [...] N - 09/20/2018 6:07 PM PDTAdmitted to [facility] with TIA, transferred to [facility] with infection and nonviable flap (09/13). 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 Infection, multiple flap revisions. July 2018 Wound debridement with Rt latissi mus dorsi flap and replacement of mesh cranioplasty. 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 Otherwise pt lives alone in [place] Prior level of function: independent with mobility and gait Equipment: has 2 helmets at home Patient / Family Goal: get better Communication: Thai Barriers: None Pain: no reports of pain. [...] rehabilitation: assessment and treatme nt (5th ed.). [place]: F. [employer]. p.254 Functional Mobility and Gait: supine to sit independent Sit to stand independent Gait independent x 500 ft, steady with lateral head turns, 90, 180 and 360 deg turns, negot iating obstacles Outcome Measure: 1. [facility] BASIC MOBILITY Difficulty turning [...] A Little - Minimal/Contact Guard Assist/Superv ision [facility] Basic Mobility Total Score 23 Interpretation of [facility] Short Form - Basic Mobility: Predicts discharge post hospitalization ([facility] raw score: 6-24) Home = 20.1 Home with home care = 17.9 shelter facility = 13.6 Inpatient rehabilitation facility = 13.6 retirement care = 11.5 Susan Ledesma. The use of functional outcome measure in acute care to guide discharg e recommendations. J Acute Door Liner. 2012;3(3):248 Pt Education: Discussed mobility, helmet as [...] acute PT indicated, signing off. Interpretation of [facility] Short Form [...] and ambulate throughout unit with bedside nurse/ [employer] supervision Discharge Recommendations: Intermittent assistance at discharge [...] discharge summary. Jaylon Amor, PT, DPT Pager: [phone] ussein - Andree Hagen ra, RN - 09/20/2018 11:30 AM PDTNursing Handoff Patient Daily Goal: Go outside to 9th floor (09/17/18 0816) Patient Specific Preferences: prefers the oxymask vs Nasal Cannula (09/14/182038) [facility] IP NURSE HANDOFF: [facility] hospital course events: Admit: Admitted to [facility] wi th TIA, transferred to [facility] with infection and nonviable flap (09/13). 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 Infection, multiple flap revisions. July 2018 [...] TIA at home and was admitted to [facility] b efore coming to [facility]. - Encourage increased po intake [...] RN - 09/20/2018 1:50 AM PDTNursing Handoff [facility] IP NURSE HANDOFF: [facility] hospital course events: Admit: Admitted to [facility] wi th TIA, transferred to [facility] with infection and nonviable flap (09/13). 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 Infection, multiple flap revisions. July 2018 [...] TIA at home and was admitted to [facility] b efore coming to [facility]. - Encourage increased po intake - monitor PVR, last voided at 0600 w/ PVR of 350ml. Barriers to discharge: Pending clinical course andoff - Vida Rogel RN - 09/19/2018 7:02 PM PDTNursing Handoff [facility] IP NURSE HANDOFF: [facility] hospital course events: Admit: Admitted to [facility] wi th TIA, transferred to [facility] with infection and nonviable flap (09/13). 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 Infection, multiple flap revisions. July 2018 [...] TIA at home and was admitted to [facility] b efore coming to [facility]. - Encourage increased po intake [...] pain medication information: none Functional Epidural: N/A SLAG EXPANDER: N/A Respiratory: RR: 19 , O2 Sat: 90 % , O2 Delivery: Nasal cannula Breath Sounds: Ex (hx copd) DARIEN: LLL: RUL: RLL: MELISSA No Comment: no hx Cardiac: BP: 118/93 HR: 91 GI: Nausea/Vomiting Status: No Signs/Symptoms: Interventions: Assessment: Comments: denies nausea. 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 Cont nicotine patch Educate on benefits of smoking cessation ssessment & Plan No Barry Alvarez FNP - 09/19/2018 2:34 PM PDTAssociated Problem(s): Repbgh98 pack year smoker. Cont nicotine patch Educate [...] 09/19/2018 2:28 PM PDTAssociated Problem(s): CAD in [place] lara ryNSTEMI in 2015 s/p mid LAD [...] prefers the oxymask vs Nasal Cannula (09/14/182038) [facility] IP NURSE HANDOFF: [facility] hospital course events: Admitted to [facility] with TIA, transferred to [facility] with infection and nonviable flap (09/13). 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 Infection, multiple flap revisions. July 2018 [...] prefers the oxymask vs Nasal Cannula (09/14/182038) [facility] IP NURSE HANDOFF: [facility] hospital course events: Admitted to [facility] with TIA, transferred to [facility] with infection and nonviable flap (09/13). 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 Infection, multiple flap revisions. July 2018 [...] RN - 09/18/2018 12:08 PM PDTNursing Handoff [facility] IP NURSE HANDOFF: [facility] hospital course events: Admit: Admitted to [facility] wi th TIA, transferred to [facility] with infection and nonviable flap (09/13). 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 Infection, multiple flap revisions. July 2018 [...] TIA at home and was admitted to [facility] b efore coming to [facility]. - Encourage increased po intake lan of Care - Georgia Bangura, PT - 09/18/2018 10:04 AM PDTPHYSICAL THERAPY CONTACT NOTE: Orders received, chart reviewed,patient is heading to OR on 09/19/18.Patient will be evaluat ed post surgery.RN updated.Patient is ad cadence in room with ambulation-as per conversation edith louise RN. Georgia Bangura,[place] [id number] signed by Georgia Bangura PT at 09/18/2018 10:06 AM PDTHandoff - Marni Gracia RN - 09/18/2018 1:42 AM PDTNursing Handoff Patient Daily Goal: Go outside to 9th floor (09/17/18 0816) Patient Specific Preferences: prefers the oxymask vs Nasal Cannula (09/14/182038) [facility] IP NURSE HANDOFF: [facility] hospital course events: Admitted to [facility] with TIA, transferred to [facility] with infection and nonviable flap (09/13). 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 Infection, multiple flap revisions. July 2018 [...] TIA at home and was admitted to [facility] b efore coming to [facility].(left side droop) - Encourage increased [...] prefers the oxymask vs Nasal Cannula (09/14/182038) [facility] IP NURSE HANDOFF: [facility] hospital course events: Admitted to [facility] with TIA, transferred to [facility] with infection and nonviable flap (09/13). 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 Infection, multiple flap revisions. July 2018 [...] TIA at home and was admitted to [facility] b efore coming to [facility].(left side droop) - Encourage increased [...] prefers the oxymask vs Nasal Cannula (09/14/182038) [facility] IP NURSE HANDOFF: [facility] hospital course events: Admit: Admitted to [facility] wi th TIA, transferred to [facility] with infection and nonviable flap (09/13). 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 Infection, multiple flap revisions. July 2018 [...] the 9K deck with her brother and [id number]-vq-rel Recommendations Forward: - Scalp rotational flap planned [...] TIA at home and was admitted to [facility] b efore coming to [facility]. - Encourage increased po intake - Bowel Incontinence 09/16- hold ss Barriers to discharge: OR Tuesday andoff - Ashley Garcia RN - 09/17/2018 5:52 AM PDTNursing Handoff [facility] IP NURSE HANDOFF: [facility] hospital course events: Admit: Admitted to [facility] wi th TIA, transferred to [facility] with infection and nonviable flap (09/13). 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 Infection, multiple flap revisions. July 2018 [...] home and was admitted to [facility] coming to [facility]. - Encourage increased po intake - Bowel Incontinence 09/16- hold ss Barriers to discharge: OR Tuesday andoff - Shabana Rogel RN - 09/16/2018 6:19 PM PDTNursing Handoff [facility] IP NURSE HANDOFF: [facility] hospital course events: Admit: Admitted to [facility] wi th TIA, transferred to [facility] with infection and nonviable flap (09/13). 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 Infection, multiple flap revisions. July 2018 [...] home and was admitted to [facility] coming to [facility]. - Encourage increased po intake lan of Care - Tom Harman, PT - 09/16/2018 9:26 AM PDTPhysical Therapy Contact Note: Chart reviewed, RN consulted. Per RN, pt currently cleared to be up ad cadence. Plans to go to the OR on , 09/19, will follow up following procedure. David Harman PT, DPT Pager: [phone] andoff - Odette Garica RN - 09/16/2018 5:31 AM PDTNursing Handoff Patient Daily Goal: Get some rest (09/15/182010) Patient Specific Preferences: prefers the oxymask vs Nasal Cannula (09/14/182038) [facility] IP NURSE HANDOFF: [facility] [...] cranioplasty with the Neurosurgery team 05/09, at [facility] time Dr White/Tesha performed a rotation [...] facial drooping at home and went to [facility] ED, CT head that was reportedly negative. At ED it was noted she had foul smelling disch arge from wound, contacted her [facility] ENT and referred to [facility] ED. No records of ED [...] CMP WNL, lactate 1.4. Imaging from OSH ([facility] in [place]) being pushed ENT evaluated and await final recs Once stable, the patient was transferred to the Emergency Department Observation Unit with a diagnosis of possible surgical wound infection for continuation of care including observat ion SAFETY Patient/Family Target: Golria will ambulate safely ad cadence Progress to Target: Improving As evidenced by: Gloria is up ad cadence in . Continue to [facility] as she has occassionally [...] Patient lives at home by herself in [facility]. Current Social Supports: Patient has a son and daughter in law that live nearby. They stop by in the evenings after work to assist patient with things as needed. Patient has a daugh ter in the [place] area, who stays 'very busy with work.' She has a brother in the [place] area who supports patient as much as able as well. Financial/Insurance status/ Employment/Education or Vocational training: Patient is covered by Medicare. She is retired. No financial concerns discussed. Activities/Spirituality: Not discussed. Medical issues: Patient Active Problem List Diagnosis Chronic obstructive pulmonary disease (HCC) HTN (hypertension) Chronic pain Skull defect Coronary arteriosclerosis in [place] artery History of non-ST elevation myocardial infarction [...] [facility] [address] [place] [address] Mental health history: Nothing noted in chart [...] or page if needed. JUSTINA Peña, CSWA Hunting Sales Leader [facility] P [id number], [id number] lan of Care - Daniel Wolff i, [...] prefers the oxymask vs Nasal Cannula (09/14/182038) [facility] IP NURSE HANDOFF: [facility] [...] with the Neurosurgery team 05/09, [facility] time Dr White/Tesha performed a rotation [...] facial drooping at home and went to [facility] ED, CT head that was reportedly negative. At ED it was noted she had foul smelling disch arge from wound, contacted her [facility] ENT and referred to [facility] ED. No records of ED [...] CMP WNL, lactate 1.4. Imaging from OSH ([facility] in [place]) being pushed ENT evaluated and await final recs Once stable, the patient was transferred to the Emergency Department Observation Unit with a diagnosis of possible surgical wound infection for continuation of care including observat ion SAFETY Patient/Family Target: Gloria will ambulate safely ad cadence Progress to Target: Improving As evidenced by: Gloria is up ad cadence in . Continue to [facility] as she has occassionally [...] 09/27/2018 | | 13:25:22DT: 09/27/2018 13:31:49Job #: [id number] | | | |Addendum: This woman had Integra used to reconstruct her scalp. The size of the Integra w as 14 x 5 cm. This was laid into the wound and secured with genoveva and then a dressing columba lied to it. | | | | | | | |Ata White MD | |CHANDRIKA/NGUYEN | | | | | | /[id number] | + + OPERATION RECORD (09/22/2018 11:27 AM PDT) + + | Procedure Note | + + | Ata White MD - 09/22/2018 11:27 AM PDT Date of Service: 09/19/2018 Attending | | Surgeon:Ata White MD Pole Classifier(s):Augusto Shaikh MD.Preoperative Diagnosis: | | Partially necrotic [...] 09/26/2018 12:12:19DT: | | 09/26/2018 12:30:21Job #: [id number] | |Ata White MD | |CHANDRIKA/NGUYEN | | | | | | /[id number] | + + CBC (HEMOGRAM) ONLY (09/22/2018 [...] [facility] | [address] | [place] [address] | | | SERVICES, CORE | PARK [...] | | | LABORATORY | | | TAJIK | | | SERVICES, | | | [...] MDRD equation recommended by the National | [facility] | | Kidney Disease Education [...] [facility] | [address] | [place] [address] | | | SERVICES, CORE | PARK [...] [facility] | [address] | [place] [address] | | | SERVICES, CORE | PARK [...] | + + + + + | [facility] | [address] | [place] [address] | | | SERVICES, CORE | PARK [...] | + + + + + | [facility] | [address] | [place] [address] | | | SERVICES, CORE | RAMSES [...] | | | LABORATORY | | | TAJIK | | | SERVICES, | | | [...] MDRD equation recommended by the National | [facility] | | Kidney Disease Education [...] | + + + + + | [facility] | [address] | [place] [address] | | | SERVICES, CORE | PARK [...] | + + + + + | [facility] | [address] | [place] [address] | | | SERVICES, CORE | PARK [...] | + + + + + | [facility] | [address] | [place] [address] | | | SERVICES, CORE | RAMSES [...] [facility] | [address] | [place] [address] | | | JOHNSON, RYAN | RAMSES [...] [facility] | [address] | [place] [address] | | | SERVICES, CORE | PARK [...] | | | LABORATORY | | | TAJIK | | | SERVICES, | | | [...] MDRD equation recommended by the National | [facility] | | Kidney Disease Education [...] | + + + + + | [facility] | [address] | [place] [address] | | | JOHNSON, RYAN | [address] | | | + + + + + OPERATION RECORD (09/19/2018 5:44 PM PDT) + + + | Narrative | Performed At | + + + | Alfreda Mccollum MD 10/03/2018 3:27 PM Date of Procedure: | | | 09/19/18 Attending Surgeon: Alfreda Mccollum, | | | Pole Classifier(s): | | | Diana Richey MD, Dillan [...] | | | the operative room on [facility]. General anesthesia was | | | induced by the neuroanesthesia team. The eyes were taped shut to | | | prevent corneal abrasion. The patient was placed in the supine | | | position, and all pressure points were carefully padded. The head | | | was secured in the horseshoe shrimp header. The hair over the area was | [...] | Dillan Bridges MD Neurosurgery, PGY-2 Pager [phone] I | | | certify that I was present for and participated in the critical | | | parts of the procedure. I further certify that I was the principal | | | neurosurgeon for this procedure. Alfreda Mccollum MD | | | Clinical Instructor & Skull Base Fellow [id number] Department of | | | [facility]rological [facility] [place], [place] | | | | | + [...] [facility] | [address] | [place], [place] | | | [facility] | [facility] | [address] | | | TESTS | | | [...] | | AIRPORT - | | | [facility] | + + + + + + + + | Performing | Address | City/State/Zipcode | Phone Number | | Organization | | | | + + + + + | [facility] | [address] | [place] [address] | | | [place] | | | [...] | polymorphonuclear cells No organisms seen | [place] | + + + + + + [...] + | [facility] | [address] | [place] [address] | | | [place] | | | | + + + [...] + | [facility] | [address] | [place] [address] | | | [facility] | | | | + [...] + | [facility] | [address] | [place] [address] | | | [facility] | | | | + + [...] + | [facility] | [address] | [place] [address] | | | [place] | | | | + + + [...] + | [facility] | [address] | [place] [address] | | | [place] | | | [...] DEPT OF | [address] | [place], [place] | | | CARDIOLOGY | [address] | [address] | | + + + + + [...] [facility] | [address] | [place], [place] | | | [facility] CARE | [address] | [address] | | | TESTS | | | [...] [facility] | [address] | [place] [address] | | | SERVICES, CORE | RAMSES [...] | | | LABORATORY | | | TAJIK | | | SERVICES, | | | [...] MDRD equation recommended by the National | [facility] | | Kidney Disease Education Program. Estimated GFR Interpretive | LABORATORY | | Information: <60 mL/min/1.73 sq m Chronic Kidney | SERVICES, [facility] | | Disease [...] | + + + + + | [facility] | [address] | [place] [address] | | | RYAN ORNELAS | RAMSES [...] [facility] | [address] | [place] [address] | | | SERVICES, CORE | [address] [...] [facility] | [address] | [place] [address] | | | SERVICES, | [address] [...] [facility] | [address] | [place] [address] | | | SERVICES, | [address] [...] [facility] | [address] | [place] [address] | | | SERVICESRYAN | [address] [...] [facility] | [address] | [place] [address] | | | RYAN ORNELAS | RAMSES [...] | | | LABORATORY | | | TAJIK | | | SERVICES, | | | [...] | + + + + + | [facility] | [address] | [place] [address] | | | SERVICES, RYAN | RAMSES [...] | + + + + + | [facility] | [address] | [place] [address] | | | SERVICES, CORE | RAMSES [...] | + + + + + | [facility] | [address] | [place] [id number] | | | SERVICES, CORE | RAMSES [...] | + + + + + | [facility] | [address] | [place] [address] | | | SERVICES, CORE | RAMSES [...] | + + + + + | [facility] | [address] | [place] [address] | | | SERVICES, CORE | RAMSES [...] | | | LABORATORY | | | TAJIK | | | SERVICES, | | | [...] MDRD equation recommended by the National | [facility] | | Kidney Disease Education Program. Estimated [...] | + + + + + | [facility] | [address] | [place] [address] | | | SERVICES, CORE | PARK [...] | + + + + + | [facility] | [address] | [place] [address] | | | SERVICES, CORE | RAMSES [...] | | | LABORATORY | | | TAJIK | | | SERVICES, | | | [...] [facility] | [address] | [place] [address] | | | SERVICES, CORE | PARK [...] [facility] | [address] | [place] [address] | | | SERVICES, CORE | PARK [...] | + + + + + | [facility] | [address] | [place] [address] | | | SERVICES, CORE | RAMSES [...] | | | LABORATORY | | | TAJIK | | | SERVICES, | | | [...] MDRD equation recommended by the National | [facility] | | Kidney Disease Education [...] | + + + + + | [facility] | [address] | [place] [address] | | | SERVICES, CORE | RAMSES [...] Note | + + | Service Account, Pidgon Res In Interface - 09/14/2018 3:14 PM [...] [facility] | [address] | [place] [address] | | | SERVICES, RYAN | RAMSES [...] + | [facility] | [address] | [place] [address] | | | [place] | | | [...] [facility] | [address] | [place], [place] | | | [facility] | [address] | [address] | | | TESTS | | | [...] | + + + + + | [facility] | [address] | [place] [address] | | | RYAN ORNELAS | RAMSES [...] | + + + + + | [facility] | [address] | [place] [address] | | | J[place]NS[place], RYAN | RAMSES [...] | + + + + + | [facility] | [address] | [place] [address] | | | SERVICES, RYAN | RAMSES [...] [facility] | [address] | [place] [address] | | | SERVICES, | [address] [...] [facility] | [address] | [place] [address] | | | SERVICES, CORE | PARK [...] | | | LABORATORY | | | TAJIK | | | SERVICES, | | | [...] | + + + + + | [facility] | [address] | [place] [address] | | | SERVICES, RYAN | [address] | | | + + + + + ED INFORMATION EXCHANGE (09/13/2018 8:24 PM PDT) + + | Specimen | + + | | + + + + + | Narrative | Performed At | + + + | [facility]NOTIFICATION?09/13/2018 20:23?GLORIA ADHIKARI?MRN: | [facility] | | [id number] Criteria Met 5 Visits In 12 Months [...] E.D. Visit Count (12 mo.) [facility] | [facility] 3 [facility] 2 Total 5 Note: | | | Visits indicate total known visits. Recent Emergency Department | | | Visit Summary Date Facility City State Type Diagnoses or Chief | | | Complaint Sep 13, 2018 [facility] [place] | | | [place] Emergency 10,800. post op comp Sep 12, 2018 [facility]. | | | [place] Emergency Chief Complaint: POST OP ISSUE | | | July 10, 2018 [facility] [place] Emergency | | | 10,800. CRANIAL PLASTY ISSUE 18,400. Disruption of | | | external operation (surgical) wound, not elsewhere classified, | | | initial encounter 18,400. Other specified postprocedural states | | | May 14, 2018 [facility] [place] | | | Emergency 10,800. post-op complications, open head wound | | | post-op 18,400. Other acquired deformity of head Dec 02, | | | [facility] [place] [facility] Extradural and | | | subdural abscess, unspecified Headache Chronic obstructive | | | pulmonary disease, unspecified Old myocardial infarction | | | retirement (current) use of aspirin Personal history of nicotine | | | dependence Other senior care (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 therapy Allergy | | | status to other antibiotic agents status Allergy status to other | | | drugs, medicaments and biological substances status Allergy | | | status to sulfonamides status Recent Inpatient Visit | | | Summary Date Facility City State Type Diagnoses or Chief Complaint | | | Aug 03, 2018 [facility] [place] Ear, Nose, | | | Throat 18,400. Disruption of external operation (surgical) | | | wound, not elsewhere classified, initial encounter July 10, 2018 | | | [facility] [place] Inpatient | | | 18,400. Other specified postprocedural states 18,400. | | | Disruption of external operation (surgical) wound, not elsewhere | | | classified, initial encounter May 14, 2018 [facility] | | | [facility] [place] Neuro Surgery 18,400. Other | | | acquired deformity of head May 08, 2018 [facility] | | | [place] Neuro Surgery 18,400. Other acquired | | | deformity of head 18,400. 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 Nontraumatic subarachnoid hemorrhage, unspecified Dec 03, | | | 2017 [facility] [place] Neuro Surgery | [...] Portal This patient has registered at the [facility] | | | [place] Emergency Department For more information visit: | | | [email or web address] | | | [email or web address] PLEASE NOTE: 1. Any care recommendations and [...] or completeness of information provided. ? 2019 [employer] | | | [employer] - www.[employer] | | + + + + + [...] Visit Count (12 | | mo.)Facility Visits [facility] 3 [facility] 2 | | Total 5 Note: Visits indicate total known visits. Recent Emergency Department Visit | | SummaryDate [facility] State Type Diagnoses or Chief Complaint Sep 13, 2018 [place] | | [facility] [place] Emergency 10,800. post op comp Sep 12, 2018 | | [facility] [place] Emergency Chief Complaint: POST OP ISSUE July 10, 2018 | | [facility] [place] Emergency 10,800. CRANIAL PLASTY ISSUE | | 18,400. Disruption of external operation (surgical) wound, not elsewhere classified, | | initial encounter 18,400. Other specified postprocedural states May 14, 2018 [place] | | [facility] [place] Emergency 10,800. post-op complications, | | open head wound post-op 18,400. Other acquired deformity of head Dec 02, [address] [facility] | | 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 Ear, Nose, Throat 18,400. Disruption of | | external operation (surgical) wound, not elsewhere classified, initial encounter June | | 2018 [facility] [place] Inpatient 18,400. Other | | specified postprocedural states 18,400. Disruption of external operation (surgical) | | wound, not elsewhere classified, initial encounter May 14, [facility] | [facility] [place] Neuro Surgery 18,400. Other acquired deformity of head | | May 08, 2018 [facility] [place] Neuro Surgery 18,400. | | Other acquired deformity of head 18,400. 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 | | Nontraumatic subarachnoid hemorrhage, unspecified Dec 03, [facility] | [facility] [place] Neuro Surgery 18,400. Other complications of procedures, | | not elsewhere classified, initial encounter 18,400. Essential (primary) hypertension | | 18,400. Nontraumatic subarachnoid hemorrhage, unspecified 18,400. Other specified | | health status 18,400. Other acquired deformity of head 18,400. Intracranial | | abscess and granuloma 18,400. Constipation, unspecified Care TeamThere are no care | | providers on record at this time. Net[employer] SystemsThiraine patient has registered at the | | [facility] Emergency Department For more information visit: | | [email or web address] PLEASE | | NOTE: 1. Any care [...] to the | | limitations of applicable [employer] Policies. 3. You should consult directly with | | the organization that provided a care guideline or other clinical history with any | | questions about additional information or accuracy or completeness of information | | provided.? 2019 [employer] - www.[employer] | | Allergy status to other antibiotic agents status | | Allergy status to other drugs, medicaments and biological substances status | | Allergy status to sulfonamides status | | | | | | | |Recent Inpatient Visit Summary | |Date Facility City State Type Diagnoses or Chief Complaint | |Aug 03, 2018 [facility] [place] Ear, Nose, Throat | | 18,400. Disruption of external operation (surgical) wound, not elsewhere classified, init ial encounter | | | |July 10, 2018 [facility] [place] Inpatient | | 18,400. Other specified postprocedural states | | 18,400. Disruption of external operation (surgical) wound, not elsewhere classified, ini tial encounter | | | |May 14, 2018 [facility] [place] Neuro Surgery | | 18,400. Other acquired deformity of head | | | |May 08, 2018 [facility] [place] Neuro Surgery | | 18,400. Other acquired deformity of head | | 18,400. Communicating hydrocephalus | | 18,400. Nontraumatic subarachnoid hemorrhage, unspecified | | | |Dec 03, 2017 [facility] [place] Neuro Surgery | [...] providers on record at this time. | |[employer] Portal | |This patient has registered at the [facility] Emergency Departmen t | |For more information visit: [email or web address] | |PLEASE NOTE: | | 1. Any [...] information provided. | | | |? 2019 [employer]. - www.[employer] | + + + + + + + | Performing | Address | City/State/Zipcode | Phone Number | | Organization | | | | + + + + + | [facility] | [address] | [place], [place] | [phone] | | TE[employer] | [address] | [address] | | + + + + + [...]
--- OUTSIDE RECORDS SUMMARY | ~2019-10-16 | XMS | Encounter Summary ---
Demographics + + + | Address | [address] | | | [place] [address] | + + + | Home Phone | | + + + | Preferred Language | Unknown | + + + | Marital Status | | + + + | Mormon Affiliation | MET | + + + [...] Team Providers + +------+ + | Care Judicial Assistant Name | Role | Phone | [...] Ave | | | | | [address] [facility] | [address] | | | | | Health and Healing, | [place], [place] | | | | | Building | [address] | | | | | floor [place], [place] | [phone] | | | | | [address] | | | | | | [phone] | | | +--------+ + + + [...]
--- OUTSIDE RECORDS SUMMARY | ~2019-10-16 | XMS | Encounter Summary ---
Demographics + + + | Address | [address] | | | [place] [address] | + + + | Home Phone [...] Providers + +------+ + | Care Supervisor Accounting Clerks Name | Role | Phone | + +------+ + | Mary Vazquez PA-C | PCP | | + +------+ + Encounter Details +--------+--------+ + + + | Date | Type | Department | Care Team | Description | +--------+--------+ + + + | 10/25/ | Travel | | | | | [...]
--- OUTSIDE RECORDS SUMMARY | ~2019-10-16 | XMS | Encounter Summary ---
Demographics + + + | Address | [address] | | | [place] [address] | + + + | Home Phone | | + + + | Preferred Language | Unknown | + + + | Marital Status | | + + + | Jain Affiliation | Unknown | + + + | Race | White | + + + | Ethnic Group | Not or | + + + Author + + + | Author | [facility] | | | and [place] | + + + | Organization | [facility] | | [...] Team Providers + +------+ + | Care Comedian Name | Role | Phone | + +------+ + | Lance Pandya DO | PCP | | + +------+ + Encounter Details +--------+ + + + + | Date | Type | Department | Care Team | Description | +--------+ + + + + | 09/15/ | Hospital | [facility] | Conversion | Abnormal nuclear | | 2017 | Encounter | [facility]ICAL [facility]ENTER | Transaction, | stress test; | | | | CLINICAL DECISION | Provider Unknown | Atypical chest pain; | | | | [address] | [phone] | SOB (shortness of | | | | [place], [place] | | breath) on exertion; | | | | [phone] | Josefina Santana, | Coronary artery | | | | [phone] | MD [address] | disease of mille lacs | | | | | [place] [address] | artery of mille lacs | | | | | [phone] | heart with stable | | | [...] 09/15/162133 Date of Service: 09/15/162130 Status: Signed Slurry Blender: Nnamdi Elias RN (Registered Nurse) Discharge instructions provided. Patient verbalized understanding. Peripheral IV D/C per pr otocol. Patient tolerated well. Patient discharged home with AVS, Mynx card and belongings. Family will drive patient home. Patient transported out of hospital by staff via [facility]. onver gabriel Transaction, Provider Unknown - 09/15/2016 9:00 PM PDT Nurse Progress Note by Nnamdi Elias RN at 09/15/162099 Author: Nnamdi Elias RN Service: (none) Author Type: Registered Nurse Filed: 09/15/162120 Date of Service: 09/15/162099 Status: Signed Slurry Blender: Nnamdi Elias RN (Registered Nurse) Patient assisted [...] Date of Service: 09/15/16 1609 Status: Signed Slurry Blender: Josefina Santana MD (Physician) [facility] Service: Cardiology Admission History & Physical Date of Admission: 09/15/2016 Addendum Please see office vit note from 09/07/2016 below. No interval change. Progress Notes Cielo Bell (MR# [id number]) Progress Notes Info Author Note Status Last Update User Last Update Date/Time Josefina Santana MD Signed Josefina Santana MD 09/09/2016 7:05 PM Progress Notes by Josefina Santana MD at 09/07/16 1605 Author: Josefina Santana MD Service: (none) Author Type: Physician Filed: 09/09/16 1905 Encounter Date: 09/07/2016 Status: Signed Slurry Blender: Josefina Santana MD (Physician) Related Notes: Original Note by Josefina Santana MD (Physician) filed at 09/07/16 1704 Expand All Collapse All Subjective Subjective: Patient ID: Cielo Bell is a 66 y.o. female. Chief Complaint Patient presents with Referral abn nuc, needs cath per dr Luu HPI It is my pleasure to see this patient at [facility] Cardiology today. She is a pleasant, 66-year-old female with a 12-wmin-loeu history of smoking and a history of COPD, dyslipidem ia, and coronary artery disease status post prior myocardial infarction and stenting of the mid left anterior descending artery using a bare-metal stent at [facility]. She was referred for further evaluation of abnormal nuclear stress test. The patient had a vgo-QJ-mbkagogrw myocardial infarction back on December 28, 2014. [...] is 16%. Signed by: Lynsey Subramanian MD [facility] 08/06/2016, 12:18 Cath 12/28/2014 Dr. Luu CONCLUSIONS: 1. Elevated EDP 35 2. No gradient on pullback 3. Normal Left main 4. 100% Mid LAD 5. No residual stenosis and JOÃO 3 flow restored 6. Minimal plaque of the LCX 7. 20-30% mid RCA with collaterals to the LAD [place] 12/28/2014 IMPRESSIONS: 1. Normal LV size and [...] No results found for: METF, NMETFX, TFNMFX, LXPMFKZ91GAL, WZSNUD37GZC, TOTEPI Assessment/Plan Assessment and Plan: 1. Coronary artery disease, prior ktl-FQ-ufbcosdxp myocardial infarction, status post stent ing of [...] 09/15/161747 Date of Service: 09/15/161746 Status: Signed Slurry Blender: Caitlin Hobson RN (Registered Nurse) Pt had [...] 09/15/161657 Date of Service: 09/15/161657 Status: Signed Slurry Blender: Caitlin Hobson RN (Registered Nurse) Patient denies pain and is resting comfortably. LEFT radial approach. onver gabriel Transaction, Provider Unknown - 09/15/2016 4:46 PM PDT ED Notes by Caitlin Hobson RN at 09/15/161645 Author: Caitlin Hobson RN Service: Cardiology Author Type: Registered Nurse Filed: 09/15/161647 Date of Service: 09/15/161645 Status: Signed Slurry Blender: Caitlin Hobson RN (Registered Nurse) Patient denies [...] 09/15/162133 Date of Service: 09/15/162133 Status: Signed Slurry Blender: Nnamdi Elias RN (Registered Nurse) Patient's discharge [...] 09/15/162127 Date of Service: 09/15/162126 Status: Signed Slurry Blender: Nnamdi Elias RN (Registered Nurse) Patient's discharge [...] | | | Clotting | performed at [facility];888 | seconds | LAB | | | time, POC | [place] | | | | | | [address] | | | | + + + [...] | | | Clotting | performed at [facility];888 | seconds | LAB | | | time, POC | [place];[place] | | | | | | [address] | | | | + + + [...] | | | Clotting | performed at [facility];888 | seconds | LAB | | | time, POC | Felix Simons;[place], [place] | | | | | | [address] | | | | + + + [...] | | | Basophils | performed at [facility];888 | K/uL | LAB | | | | [address];[place] | | | | | | [address] | | | | + + + [...] EXTERNAL | | | | performed at [facility], [address] | | LAB | | | | [place], | | | | | | [place] [address] | | | | + + + [...] | | | Calculated | performed at [facility], [address] | | LAB | | | | [place], | | | | | | [place] [address] | | | | + + + [...] | | | | | | at [facility];[address] | | | | | | [place] [address] | | | | + + + [...] + + | Coronary artery disease of mil[place] lacs artery of mil[place] heart with stable angina pectoris | | (HCC) | + + documented in this encounter
--- OUTSIDE RECORDS SUMMARY | ~2019-10-16 | XMS | Encounter Summary ---
Demographics + + + | Address | [address] | | | [place] [address] | + + + | Home Phone [...] + + + | Author | [facility] | | | and [place] | + + + | Organization | [facility] | | [...] Providers + +------+ + | Care Data Analyst Report Writer Name | Role | Phone | [...] [address] | | | | | [place], | [place] | | | | | [place] [address] | [phone] | | | | | [phone] | | | +--------+ + + + [...] [address] | [place] | [phone] | | [facility] | | [address] | | | - LABORATORY | | [...] HDL | 28 - 83 mg/dL | [facility] | | | | Reference Range as [...] [address] | [place] | [phone] | | [facility] | | [address] | | | - LABORATORY | | | | + + + + + documented in this encounter Visit Diagnoses + + | Diagnosis | + + | Coronary artery disease involving curyung coronary artery of curyung heart without | | angina pectoris - Primary | + + | PVD (peripheral vascular disease) (HCC) Peripheral vascular disease, unspecified | + + documented in this encounter"
--- OUTSIDE RECORDS SUMMARY | ~2019-10-16 | XMS | Encounter Summary ---
Demographics + + + | Address | [address] | | | [place] [address] | + + + | Home Phone [...] Team Providers + +------+ + | Care Landcare Officer Name | Role | Phone | [...] [address] | ANSON Smart [address] [facility] | | | | | [facility] | [facility] | | | | | Health and Healing, | [place], [place] | | | | | [facility] | [address] | | | | | floor [place], [place] | [phone] | | | | | [address] | | | | | | [phone] | | | +--------+ + + + [...] Isbell y, 03/06/2015, patient had a recent WY involving left anterior descending coronary artery, s/ p stent placement in mid left anterior descending artery on 12/27/14. They recommend postponi ng an elective surgery for 6 months from her WY on 12/27 (June 2015). She was restarted [...] PMC appointment, same day. Will have our motion picture projectionist coordinate this.Electro nically signed by ANSON Vasquez [...] MA - 02/25/2015 10:00 AM PSTI called [facility] regarding note s from this patients [...] 11:13 AM PSTRecords request sent via fax [phone].Electronical ly signed by Park Ball at 01/29/2015 [...] discuss clearance fo r procedure by her game room attendant as the patient recently suffered from an NSTEMI and underwen t cardiac catheterization. Planned neurosurgery procedure is for explant of hardware, which can be performed with local anesthesia. I have spoken with Dr Chana Luu' RN, Nataliya. Nataliya will speak with either Dr Bell diamond another yarn winder and call us back to confirm it is ok to proceed with t he procedure. She understands our procedure is not urgent. Cardiology office: [phone] documented in this encounter Plan of Treatment Not on filedocumented as of this encounter Visit Diagnoses Not on filedocumented in this encounter"
--- OUTSIDE RECORDS SUMMARY | ~2019-10-16 | XMS | Encounter Summary ---
Demographics + + + | Address | [address] | | | [place] [address] | + + + | Home Phone [...] Team Providers + +------+ + | Care Dropper Tank Storage Name | Role | Phone | + [...]
--- OUTSIDE RECORDS SUMMARY | ~2019-10-16 | XMS | Encounter Summary ---
Demographics + + + | Address | [address] | | | [place] [address] | + + + | Home Phone [...] Providers + +------+ + | Care Chemical Milling Processor Name | Role | Phone | [...] Description | +--------+---------+ + + + | 10/25/ | Surgery | 6A Intra Op 3181 | Ata White MD | Canceled FULL | | 2018 | | [address] | [address] | THICKNESS SKIN GRAFT | | | | [facility] | Nora [place], | RIGHT LEG TO SCALP | | | | Hospital Admitting | [place] [address] | RECONSTRUCTION 20X5 | | | | Desk Located on the | [phone] | CM | | | | 9th floor | | | | | | [place], [place] | | | | | | [address] | | | +--------+---------+ + + + [...] Diagnosis | + + | Skull defect Unspecified acquired deformity of head | + + documented in this encounter Administered Medications + +--------+---------+------+------+------+ | Medication Order | MAR | Action | Dose | Rate | Site | | | Action | Date | | | | + +--------+---------+------+------+------+ + +---+ | EPI 1:1000-NS injection | | | INTRAPROCEDURE PRN, Starting Tue | | | 10/25/18 at 1509, Until Tue10/25/18 | | | at 2128 | | + +---+ | | | + +---+ | lactated ringers IV 10 mL/hr, | | | intravenous, PROCEDURE | | | CONTINUOUS, Starting Tue10/25/18 | | | at 1430, Until Tue10/25/18 at 2128 | | + +---+ | | | + +---+ | lidocaine (XYLOCAINE) 10 mg/mL | | | (1 %) injection subcutaneous, | | | PREPROCEDURE PRN, Starting Wed | | | 10/25/18 at 1422, Until Tue10/25/18 | | | at 2128, IV start | | + +---+ | | | + +---+ | metoprolol succinate | | | (TOPROL-XL) tablet 50 mg 50 mg, | | | oral, ONCE, 1 dose, Tue10/25/18 at | | | 1530 | | + +---+ | | | + +---+ documented in this encounter
--- OUTSIDE RECORDS SUMMARY | ~2019-10-16 | XMS | Encounter Summary ---
Demographics + + + | Address | [address] | | | [place] [address] | + + + | Home Phone [...] Team Providers + +------+ + | Care Distillation Operator Name | Role | Phone | [...] | | | | | Services at [facility] | Ashutosh Melendez [place] | | | | | [address] | [place], [place] | | | | | [facility] | [address] | | | | | and Healing, | [phone] | | | | | [address] | | | | | | [place], [place] | | | | | | [address] | | | | | | [phone] | | | +--------+ + + + [...] brought her to their local ED in [place], [place] for evaluation, which is where they [...] to call Dr. White's office during business [facility] once Cielo has been appropriately treated for her acute concerns to move up their [facility]. They are currently scheduled to be seen [...]
--- OUTSIDE RECORDS SUMMARY | ~2019-10-16 | XMS | Encounter Summary ---
Demographics + + + | Address | [address] | | | [place] [address] | + + + | Home Phone [...] Providers + +------+ + | Care Laborer Tree Tapping Name | Role | Phone | + +------+ + PCP | Unavailable | + +------+ + Encounter Details +--------+ + + + + | Date | Type | Department | Care Team | Description | +--------+ + + + + | 05/20/ | Hospital | [facility] | | | | 1992 - | Encounter | MED CTR GENERIC IP | | | | | | CONV DEPT [address] | | | | 05/24/ | | [place]iz[place] Yoo, | | | | 1992 | | [place] [address] | | | | | | [phone] | | | +--------+ + + + [...]
--- OUTSIDE RECORDS SUMMARY | ~2019-10-16 | XMS | Encounter Summary ---
Demographics + + + | Address | [address] | | | [place] [address] | + + + | Home Phone [...] Providers + +------+ + | Care Women'S Studies Professor Name | Role | Phone [...] | | | | Rd [facility] | | | | | | Hospital Admitting | | | | | | Desk Located on the | | | | | | 9th floor | | | | | | [place], [place] | | | | | | [address] | | | +--------+ + + + [...]
--- OUTSIDE RECORDS SUMMARY | ~2019-10-16 | XMS | Encounter Summary ---
Demographics + + + | Address | [address] | | | [place] [address] | + + + | Home Phone [...] Team Providers + +------+ + | Care Academic Affairs Manager Name | Role | Phone | [...] SYNTHETIC | | 2019 | | [facility] | [address] | CRANIOPLASTY; | | | | Rd [facility] | [place], [place] | | | | | Hospital Admitting | [address] | | | | | Desk Located on the | [phone] | | | | | 9th floor | | | | | | [place], [place] | | | | | | [address] | | | +--------+---------+ + + + [...] Diego MD PCP: Mary Vazquez PA-C Service: [facility] Neurosurgery Diagnoses Principal Final Diagnosis: Right frontotemporal [...] AM Discharging Attending: MD Marni Woods PA-C [facility] [address] [id number] [place] [address] documented in t his encounter Discharge Instructions AttachmentsThe following attachments cannot be sent through Care Everywhere.Smoking Cessati on: Health Benefits: General Info (Nigerien)documented in this encounter Medications at Time of [...] Care Unit Team Progress Note NSICU ASSIGNED #[id number] ICU Admission Reason Most Recent Value ICU [...] daily -prn IV hydralazine Coronary arteriosclerosis in [place]halen artery Yes Current Assessment & Plan -see [...] 4L but did not travel here to [facility] with it -stable on 4L NC -RT [...] Provider Role Specialty Ipt Critical Care Nsicu #[id number] Treatment Team Ipt Neurosurgery #[id number] Treatment Team Neurological Surgery Patient Lines/Drains/Airways Status [...] ICU NEURO Place of Service:- Inpatient CSN: [id number] Suggested Modifier: None Suggested CPT: TO DEPUTY SHERIFF CIVIL DIVISION KOKO Hoang Author:KOKO KNIGHT [address] [phone] signed by KOKO Hoang at 05/26/2018 1:38 [...] ASSESSMENT/PLAN: 68 y.o. 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 Neurologically intact. Transfer to cooper JOSE M EATON MD,PhD Resident Neurological Surgery Pgr. [id number] Associated attestation - Casey Hewitt MD - [...] medication information: see MAR. Functional Epidural: No ORACLE SECURITY CONSULTANT: No Respiratory: RR: 15 , O2 Sat: 93 % , O2 Delivery: Nasal cannula Breath Sounds: Ex DARIEN: LLL: RUL: RLL: MELISSA No Comment: Cardiac: BP: 116/61 HR: 67 GI: Nausea/Vomiting Status: No Signs/Symptoms: Interventions: Assessment: Comments: : Last void: goins Contact Name: Juan (sister in law) Contact Number: [phone] Family contacted: Yes Comment:Juan updated via phone. [...] Giovanni Vincent MD PGY-5 Neurological Surgery Pager [phone] documented in this enco unter H&P Notes Ssuy Vallecillo MD - 05/08/2018 1:14 PM PDTFormatting of this note might be different fr om the original. . Neuroscience Intensive Care Unit Attending H&P Note Attending Pager #[phone] ICU Admission Reason Most Recent Value ICU [...] Cardiovascular HTN (hypertension) Yes Coronary arteriosclerosis in newhalen artery Yes Ischemic cardiomyopathy Unknown Respiratory/Chest Chronic obstructive pulmonary disease (HCC) Yes Digestive PONV (postoperative nausea and vomiting) Unknown Other History of non-ST elevation myocardial infarction (NSTEMI) Yes Tobacco dependence Yes Acute postoperative pain Unknown NSICU treatment team members Provider Role Specialty Ipt Critical Care Nsicu #[id number] Treatment Team Ipt Neurosurgery #[id number] Treatment Team Neurological Surgery Code Status Code [...] and the recent imaging available. Seen with PA/TANK HOUSE SUPERVISOR Amaya Norton. Please see their note for details. I reviewed the documented findings, all data and the recent imaging available. Date of Service: 05/08/2018 Author:SUSY VALLECILLO MD [place] [address] [facility] - 05/08/2018 1:00 PM PDT . Neuroscience Intensive Care Unit Team H&P Note NSICU ASSIGNED #[id number] 1 Days in ICU 1 Days in [...] stable and as approp Coronary arteriosclerosis in [place]halen artery Yes Current Assessment & Plan -see [...] Abnormal LFTs (liver function tests) CAD in [place] artery s/p NSTEMI 12/27/2014; status post stent placement in the mid LAD Chronic pain COPD on oxygen at night Essential hypertension GERD (gastroesophageal reflux disease) Goiter Hemorrhagic stroke ([facility]) 2007 aneurysm MRSA (methicillin resistant staph aureus) culture positive post cariotomy for SAH Otitis media recent abx preadmit PONV (postoperative nausea and vomiting) Subarachnoid hemorrhage due to ruptured aneurysm ([facility]) 2007 Tobacco dependence Past Surgical History Procedure Laterality Date Partial thyroidectomy Right Hysterectomy Bladder suspension 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 Factory Helper shunt Tympanoplasty Right 1987 Lumpectomy of left breast 1979 Coronary stent placement 12/28/2014 status post stent placement in the mid LAD Removal of evp business development shunt Cholecystectomy Allergies Allergen Reactions Bledsoe Tar Hives Betadine [Povidone-Iodine (With Soap)] Rash [...] Provider Role Specialty Ipt Critical Care Nsicu #[id number] Treatment Team Ipt Neurosurgery #[id number] Treatment Team Neurological Surgery Patient Lines/Drains/Airways Status [...] ICU NEURO Place of Service:- Inpatient CSN: [id number] Suggested Modifier: None Suggested CPT: TO DEPUTY SHERIFF CIVIL DIVISION KOKO Hoang Author:KOKO KNIGHT [address] [id number] signed by KOKO Hoang at 05/09/2018 11:10 [...] daily. Facility-Administered Medications: None Allergies Allergen Reactions Bledsoe Tar Hives Betadine [Povidone-Iodine (With Soap)] Rash Cipro [Ciprofloxacin] Nausea and Vomiting Codeine Hcl Nausea and Vomiting Sulfa (Sulfonamide Antibiotics) Erythema Past Medical History: Diagnosis Date Abnormal LFTs (liver function tests) CAD in newhalen artery Chronic pain COPD Essential hypertension GERD [...] Please contact the Neurosurgery resident on-call pager [phone] with questions or concerns. Vickie Estrada M.D., M.P.H. R2 Resident Physician Neurological Surgery Pager: [phone] signed by Magnolia Diego MD at 05/16/2018 9:09 AM PDTdocumented i n this encounter Procedure Notes Ata White MD - 05/08/2018 2:53 PM PDTAssociated Order(s): OPERATION RECORDDate of Service : 05/08/2018 Attending Surgeon:Ata White MD Shoe Stock Associate(s):Abel Pratt MD Preoperative Diagnosis: Cranioplasty. Postoperative Diagnosis: [...] running continuous fashion. Ata White MD MW/MODL /[id number] signed by Ata White MD at 05/08/2018 3:33 PM PDTDoMagnolia malik MD - 05/08/2018 1:14 PM PDTAssociated Order(s): OPERATION RECORDDate of Service: 05/08/2018 Attending Surgeon: Magnolia Diego MD Co-Surgeon: Ata White MD. Shoe Stock Associate(s): Giovanni Vincent MD. Preoperative Diagnosis: Right frontotemporal [...] head was placed in a horseshoe head golf coach, and all pressure points were carefully padded. [...] and then affixed them to th e newhalen skull until they sat flush. Due to [...] further recovery. MD Magnolia Dudley MD CHANTALE/MODL /[id number] I, Dr. Magnolia Diego certify that I was present for and participated in the critical parts of the procedure. I further certify that I was the principal surgeon for this procedure. MAGNOLIA DIEGO MD [facility] [address] [facility] [address] documented in this encou nter Miscellaneous Notes [...] 4L but did not travel here to [facility] with it -stable on 4L NC -RT [...] Goal: sleep and go home tomorrow (05/09/181938) [facility] IP NURSE HANDOFF: Nesbitt hospital course events: [...] [facility] and received IV ceftriaxone for 6 [...] had BM x2 this shift - RT case briefer left O2 tank (x2) at bedside for discharge. Pt continuing to need supplementa l O2 to keep O2 sats >88% Barriers to discharge: DC to home today AM?- Son Augusto will drive from [place] to come [facility] her up in the AM. andoff - Ricarda Navarro RN - 05/09/2018 2:54 PM PDTNursing Handoff Patient Daily Goal: no more stool softeners (05/09/18 8301) [facility] IP NURSE HANDOFF: Nesbitt hospital course events: [...] [facility] and received IV ceftriaxone for 6 [...] had BM x2 this shift - RT case briefer left O2 tank (x2) at bedside for discharge. Pt continuing to need supplementa l O2 to keep O2 sats >88% Barriers to discharge: DC to home tomorrow AM- Son Augusto will drive from [place] to come p ick her up in the AM. andoff - John John RN - 05/09/2018 1:12 PM PDTNursing Handoff [facility] IP NURSE HANDOFF: Nesbitt hospital course events: [...] She [facility] and received IV ceftriaxone for 6 [...] discharge: DC to home tomorrow AM. Son Augsuto will drive from [place] to come pick her up in the AM. RT case briefer left O2 tank (x2) at bedside for discharge. Pt continuing to need supplemental O2 to keep O2 sats >88% lan of Care - Rula Pacheco, PT - 05/09/2018 9:53 AM PDTFormatting of this note might be different from the orig inal. Physical Therapy Evaluation [id number] GLORIA BELL [facility] Day: 1 Date of : 1950 [...] a 68 y.o. female HD#1 with CAD, VT s/p s tent on ASA/plavix, HTN, previous [...] Abnormal LFTs (liver function tests) CAD in [place]en artery Chronic pain COPD Essential hypertension GERD (gastroesophageal reflux disease) Goiter Hemorrhagic stroke (HCC) 2007 MRSA (methicillin resistant staph aureus) culture positive Otitis media PONV (postoperative nausea and vomiting) Subarachnoid hemorrhage due to ruptured aneurysm (HCC) 2007 Tobacco dependence Past Surgical History: Procedure Laterality Date BLADDER SUSPENSION CHOLECYSTECTOMY CORONARY STENT PLACEMENT 12/28/2014 HYSTERECTOMY LUMPECTOMY OF LEFT BREAST 1979 PARTIAL THYROIDECTOMY Right REMOVAL OF PIPE FITTER MAINTENANCE SHUNT REPAIR OF ANEURYSM BY CLIPPING TYMPANOPLASTY Right 1987 PIPE FITTER MAINTENANCE SHUNT Living Environment: Patient lives alone in [...] room air fluctuating from 85-91%. Outcome Measure: [facility] BASIC MOBILITY Difficulty turning over in bed [...] w/railing 4 - None - Modified Independent/Independent [facility] Basic Mobility Total Score 24 Interpretation of [facility] Short Form - Basic Mobility: CMS Modifier [...] repiratory DME needed for discharge RT DC Plating Technician delivered 2 tanks for patient discharge to home. Patient might stay with brother in [place] instead of go home to [place]. If patient goes to [place] and stays with her brother, RT DCP with have vendor deliver concen trator. Vendor is [facility] [place] [phone], and [place] [employer] [phone]. The RT store planner will continue to follow . Pager [phone] with any questions. andoff - Nataliya Martinez, ALEKSANDAR - 05/09/2018 2:35 AM PDTNursing Handoff [facility] IP NURSE HANDOFF: Nesbitt hospital course events: [...] of Care / Advance Care NSICU ASSIGNED #[id number] Date: 05/08/18 Advanced Directives: The patient does not have an advance directive in the EMR. A POLST is not indicated in the EMR. Healthcare Agent(s): Surrogate decision maker has been identified and is : Venessa Gerard (Daughter) , patents can be contacted at . The surrogate decision maker has been listed as the e mergency contact within ezeep. Code Status: Current Code Status Date Active Code Status Order ID Comments User Context 05/08/2018 7:07 AM Full Code [id number] Millicent Tony MD Inpatient Code History: Code Status History Date Active Date Inactive Code Status Order ID Comments User Context 12/03/2017 9:59 PM 12/10/2017 2:28 AM Full Code [id number] Tommie Zarco MD Inpatient 10/23/2015 3:47 PM 10/25/2015 6:29 PM Full Code [id number] Antoinette Adkins MD,PhD Inpatient 10/23/2015 6:46 AM 10/23/2015 3:47 PM Full Code [id number] Tommie Bliss Inpatient 06/07/2014 9:11 AM 06/08/2014 6:06 PM Full Code [id number] Angel Mazariegos MD Inpatient 06/07/2014 6:13 AM 06/07/2014 9:11 AM Full Code [id number] Beny Cruz MD Inpatient 05/13/2008 4:34 PM 05/14/2008 7:21 PM Full Code [id number] Alli Junior MD Inpatient 04/11/2008 5:27 PM 04/13/2008 11:04 PM Full Code [id number] Saskia Nguyen RN Inpatient 03/03/2008 1:17 PM 03/08/2008 10:09 PM Full Code [id number] oT Prieto MD Inpatient 03/03/2008 1:16 PM 03/03/2008 1:16 PM DNR/DNI [id number] To Prieto MD Inpatient 03/03/2008 12:06 AM 03/03/2008 1:16 PM Full Code [id number] Marlon Mcintyre MD Inpatient 10/30/2007 10:53 PM 11/02/2007 8:59 PM Full Code [id number] Antoinette Saenz RN Inpatient 10/18/2007 5:01 AM 10/30/2007 10:53 PM Full Code [id number] Norberto Bolaños Inpatient Narrative Summary of Conversation: [...] & Plan N hamzah - Am[facility] Norton, [facility] - 05/08/2018 1:26 PM PDTAssociated Problem(s): History of non-S T elevation myocardial infarction (NSTEMI)-see ischemic cardiomyopathy plan aboveElectronica lly signed by KOKO Hoang at 05/08/2018 1:26 PM PDTAssessment & Plan Note - Amaya Norton ACNP - 05/08/2018 1:26 PM PDTAssociated Problem(s): CAD in newhalen artery-see isc hemic cardiomyopathy plan above ssessment [...] Radial less than 1 GIOVANNI VINCENT MD [id number] signed by Magnolia Diego MD at 05/16/2018 [...] [facility] | [address] | [place] [address] | | | SERVICES, CORE | PARK [...] [facility] | [address] | [place] [address] | | | JOHNSON, CORE | PARK [...] [facility] | [address] | [place] [address] | | | SERVICES, CORE | PARK [...] | | | LABORATORY | | | GUYANESE | | | SERVICES, | | | [...] the MDRD equation recommended by the | [facility] | | National Kidney Disease Education Program. [...] | [facility] | [address] | [place] [address] | | | RYAN [place]NELAS | [address] | | | + + + + + PROCEDURE NOTE (05/08/2018 10:26 PM PDT)OPERATION RECORD (05/08/2018 2:53 PM PDT) + + | Procedure Note | + + | Ata White MD - 05/08/2018 2:53 PM PDT Date of Service: 05/08/2018 Attending | | Surgeon:Ata White MD Shoe Stock Associate(s):Abel Pratt MD | | Preoperative Diagnosis: Cranioplasty.Postoperative [...] | MDMW/MODLDD: 05/08/2018 14:29:00DT: 05/08/2018 14:53:38Job #: [id number] | |starting to come through the skin, [...] |MW/MODL | | | | | | /[id number] | + + CBC (HEMOGRAM) ONLY (05/08/2018 [...] | + + + + + | [facility] | [address] | [place] [address] | | | RYAN [place]NELAS | [address] | | | + + + + + OPERATION RECORD (05/08/2018 1:14 PM PDT) + + | Procedure Note | + + | Magnolia Diego MD - 05/08/2018 1:14 PM PDT Date of Service: 05/08/2018 Attending | | Surgeon: Magnolia Diego MD Co-Surgeon: Ata White MD. Shoe Stock Associate(s): Giovanni | | MD Rakesh. Preoperative Diagnosis: [...] placed | | in a horseshoe head golf coach, and all pressure points were carefully padded. [...] then affixed them | | to the new[place]en skull until they sat flush. Due to [...] 05/08/2018 11:22:05DT: 05/08/2018 | | 13:14:51Job #: [id number], Dr. Magnolia Diego certify that I was present for and | | participated in the critical parts of the procedure. I further certify that I was the | | principal surgeon for this procedure.EZRA WOODS [id number] | | [id number], [place] [id number] | | | |I, Dr. Magnolia Diego certify that I was present for and participated in the critical parts of the procedure. I further certify that I was the principal surgeon for this procedure. | | | | | | | |MAGNOLIA DIEGO MD | |[facility] [address] | |[address] | |[id number]/[id number] | |[place] [address] | |[phone] | + + CT HEAD WO CONTRAST [...] | | | LABORATORY | | | GUYANESE | | | SERVICES, | | | [...] | + + + + + | [facility] | [address] | [place] [address] | | | SERVICES, CORE | [address] [...] [facility] | [address] | [place], [place] | | | RA[address]L JAY OF OL[place] | [address] | [address] | | | TESTS | | | [...] - [facility] | [address] | [place], [place] | | | MISTY POINT OF CARE | [address] | [address] | | | TESTS | | | [...] | [facility] | [address] | [place] [address] | | | SERVICES, CORE | [address] [...] | | | LABORATORY | | | GUYANESE | | | SERVICES, | | | [...] | [facility] [employer] | [address] | [place] [address] | | | SERVICES, CORE | [address] [...] | [facility] | [address] | [place] [address] | | | SERVICES, CORE | [address] [...] [facility] | [address] | [place] [address] | | | SERVICES, | [address] [...] | [facility] | [address] | [place] [address] | | | SERVICES, | [address] [...] [facility] | [address] | [place], [place] | | | [facility], [facility] | [address] | [address] | | | TESTS | | | [...]
--- OUTSIDE RECORDS SUMMARY | ~2019-10-16 | XMS | Encounter Summary ---
Demographics + + + | Address | [address] | | | [place] [address] | + + + | Home Phone [...] Team Providers + +------+ + | Care Chronograph Operator Name | Role | Phone | + +------+ + | Mary Vazquez PA-C | PCP | | + +------+ + Reason for Visit +---------+ + | Reason | Comments | +---------+ + | Post Op | | +---------+ + Encounter Details +--------+---------+ + + + | Date | Type | Department | Care Team | Description | +--------+---------+ + + + | 07/28/ | Office | Otolaryngology | Ayush Sarmiento | History of | | 2019 | Visit | Head and Neck | JORGE LUIS Donald [address] [facility] | cranioplasty | | | | Surgery Services at | [facility] [address] | (Primary Dx) | | | | [facility] [address] | [place], [place] | | | | | [facility] for | [address] | | | | | Health and Healing, | [phone] | | | | | [place] [address] | | | | | | [place], [place] | | | | | | [address] | | | | | | [phone] | | | +--------+---------+ + + + [...] + + + | Blood Pressure | 139/77 | 07/28/2018 9:49 AM | | | | | PDT | | + + + + + | Pulse | 87 | 07/28/2018 9:49 AM | | | | | [...] | Weight | 49.5 kg (109 lb 3.2 | 07/28/2018 9:49 AM | | | | oz) | PDT | | + + + + + | Height | - | - | | + + + + + | Body Mass Index | 22.06 | 07/10/2018 9:21 AM | | | [...] documented as of this encounter Progress Notes Ayush Sarmiento PA-C - 07/28/2018 10:00 AM PDTFormatting of this note might be differe nt from the original. Head and Neck Surgery Postoperative Follow Up Date of Service: 07/11/2018 Removal of cranioplasty by Neurosurgical service, elevation of an anterior flap approximately 25 x 8 cm undermining with a galeatomy of the posterior inci gabriel approximately 25 x 3 x 5 cm and then advancement and closure of the craniotomy site. Attending Surgeon: Ata White MD Subjective: Patient is doing well following her surgery. She presents with helmet protectin g the removed cranioplasty surgical site. She is frustrated about the recessed portion of th e surgical site. She cosmetically covers this with her hair. She has been washing the surgic al site daily with hydrogen peroxide. She has no pain and no drainage. Allergies Allergen Reactions [place] Tar Hives Betadine [Povidone-Iodine (With Soap)] Rash Cipro [Ciprofloxacin] Nausea and Vomiting Codeine Hcl Nausea and Vomiting Sulfa (Sulfonamide Antibiotics) Erythema Current Outpatient Medications: acetaminophen 325 mg oral tablet, Take 1-2 tablets by mouth every four hours as needed. Indications: Pain, Disp: , Rfl: aspirin EC 81 mg oral tablet,delayed release (DR/EC), Take 1 tablet by mouth once daily. Do not restart aspirin until 2 weeks after surgery-07/25/18, Disp: , Rfl: atorvastatin 80 mg oral tablet, Take 80 mg by mouth once daily., Disp: , Rfl: ipratropium-albuterol 0.5 mg-3 mg(2.5 mg base)/3 mL inhalation solution for nebulization, I nhale 3 mL two times daily., Disp: , Rfl: metoprolol succinate 50 mg oral tablet extended release 24 hr, Take 50 mg by mouth once chauncey ly., Disp: , Rfl: nicotine 21 mg/24 hr transdermal patch 24 hour, Apply 1 patch to skin once daily., Disp: 30 patch, Rfl: 1 nitroglycerin 0.4 mg sublingual tablet, sublingual, Place 0.4 mg under tongue every five mi nutes as needed for chest pain. Place under tongue and allow to dissolve. Administer every 5 minutes, max of 3 doses in 15 minutes., Disp: , Rfl: polyethylene glycol 17 gram oral powder in packet, Mix 1 packet and take orally three times daily as needed (1st line - for no BM for 2 days). Indications: constipation (Patient not t aking: Reported on 06/02/2018), Disp: , Rfl: spironolactone 25 mg oral tablet, Take 25 mg by mouth once daily., Disp: , Rfl: There were no vitals taken for this visit. General: Well nourished, well-developed patient, calm Face: no facial deformities or dysmorphic features, no facial tenderness Eyes: sclera anicteric, conjunctiva pink Ears: normal pinna bilaterally Nose: Normal external appearance Oral cavity: Normal inter-incisal distance Respiratory and Voice: normal respiratory effort, no stridor, normal voice Psychiatric: Normal mood and affect, very pleasant Neurological: cranial nerves II through XII grossly intact, alert, normal speech articulati on and fluency Skin: scalp incisions are healing well without signs of infection. The posterior incision i s closed with absorbable sutures. Nylon sutures in anterior incision removed in clinic today . Assessment and Plan: She is doing well following her recent surgery. She is not motivated f or more surgeries but would like to address the recessed portion of her scalp. - Follow up with Dr. White in 2 months to discuss further reconstruction. Ayush Sarmiento PA-C documented in this encounte r Plan of Treatment Not on filedocumented as of this encounter Visit Diagnoses + + | Diagnosis | + + | History of cranioplasty - Primary | + + documented in this encounter"
--- OUTSIDE RECORDS SUMMARY | ~2019-10-16 | XMS | Encounter Summary ---
Demographics + + + | Address | [address] | | | [place] [address] | + + + | Home Phone [...] Team Providers + +------+ + | Care Cloth Stock Sorter Name | Role | Phone | + [...] 2018 | Event | A[facility] | [address] | | | | | [facility] | [address] | | | | | Hospital Admitting | [place], [place] | | | | | Desk Located on the | [address] | | | | | 9th floor | [phone] | | | | | [facility] [place] | | | | | | [address] | Alex Evangelista | | | | | | PIPE Santos [address] | | | | | | [address] | | | | | | [place], [place] | | | | | | [address] | | | | | | [phone] | | | | | | | [...] (stage | Greg Pittman RN | Vida oRgel RN | | | II); Other (Comment) (ambulate | | | | | drive from [place]); 08/11/18; | | | | | 1206 [...] | | Endotracheal Tube; 7; Oral; | PLASTIC DUPLICATOR | PLASTIC DUPLICATOR | | | Cuffed; 12/05/17; 2216 | [...] be different from the original. Cielo Bell [id number] Allergies Allergen Reactions [place] Tar Hives Betadine [Povidone-Iodine (With Soap)] Unknown Cipro [Ciprofloxacin] Nausea and Vomiting Codeine Hcl Nausea and Vomiting Sulfa (Sulfonamide Antibiotics) Erythema Past Surgical History Procedure Laterality Date Partial thyroidectomy Right Hysterectomy Cholecystecomy Bladder suspension 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 Reproduction Technician shunt Tympanoplasty Right 1987 Lumpectomy of [...] - 12/05/2017 8:25 PM PDT Cielo Nurard [id number] Allergies Allergen Reactions [place] Tar Hives Betadine [Povidone-Iodine (With Soap)] Unknown [...] gland Goiter Skull defect Coronary arteriosclerosis in [place] artery Acute [id number] myocardial infarction (HCC) Continuous tobacco abuse Hyperglycemia Draining postoperative wound Past Surgical History Procedure Laterality Date Partial thyroidectomy Right Hysterectomy Cholecystecomy Bladder suspension 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 Reproduction Technician shunt Tympanoplasty Right 1987 Lumpectomy of [...] Date RATE 94 12/04/2017 ATRIALRATE 93 12/04/2017 [place] 155 12/04/2017 QRS 100 12/04/2017 QT 352 [...] COPD severe (O2) No dx of sleep infrastructure project manager ea Cardiovascular: Echo 12/2014: Normal LV size [...]
--- OUTSIDE RECORDS SUMMARY | ~2019-10-16 | XMS | Encounter Summary ---
Demographics + + + | Address | [address] | | | [place] [address] | + + + | Home Phone [...] Team Providers + +------+ + | Care Conservation Agent Name | Role | Phone | + +------+ + | Mary Vazquez PA-C | PCP | | + +------+ + Encounter Details +--------+ + + + + | Date | Type | Department | Care Team | Description | +--------+ + + + + | 09/14/ | Procedure | Diagnostic Imaging | | | | 2018 | Pass | Services at [facility] | | | | | | [address] | | | | | | Nora Funes [facility] | | | | | | [facility], [address] [place] [address] | | | | | | [place], [place] | | | | | | [address] | | | | | | [phone] | | | +--------+ + + + [...]
--- OUTSIDE RECORDS SUMMARY | ~2019-10-16 | XMS | Encounter Summary ---
Demographics + + + | Address | [address] | | | [place] [address] | + + + | Home Phone [...] Team Providers + +------+ + | Care Xerox Machine Assembler Name | Role | Phone | [...] + + | 06/07/ | Hospital | [address] | [place], | | | 2015 - | Encounter | [facility] [address] | [place] [address] [facility] | | | | | [facility] | [address] | | | 06/08/ | | [place], [place] | [place], [place] | | | 2014 | | [address] | [address] | | | | | [phone] | [phone] | | | | | | | [...] Physician: MD KASHIF ESPOSITO MD Otolaryngology, PGY1 [id number] signed by Beny Cruz MD at 06/10/2014 [...] to maintain suction. Thank you for choosing [facility] for your care and for staying with us on 5B Day Stay Unit. It h as been a pleasure caring for you! Discharge Nurse: ALMITA MARQUEZ Date: 06/08/2014 Discharge Time: 10:31 AM AttachmentsThe following attachments cannot be sent through Care Everywhere.COPD: CLEARING LUNGS : GENERAL INFO (HUNGARIAN)SURGICAL DRAIN CARE (HUNGARIAN)documented in this encounter Progress Notes Kashif Sunshine [...] Otolaryngology Head and Neck Surgery, PGY-1 Pager [phone] documented in this en counter H&P Notes [...] PDTAssociated Order(s): PROCEDURE NOTEOPERATIVE NOTE Cielo Bell [id number] Date of Surgery: 06/07/2014 Attending Surgeon: Beny Cruz MD Survey Superintendent(s): SEBASTIAN MICHELLE MD and Angel Mazariegos MD [...] reached approximately the level of the bony medicare compliance auditor y canal. At this point of [...] the patient was then turned over to [facility] for reversal of anesthesia. After the smooth [...] d iscontinued. Patient received and understands all [facility] discharge teaching literature and EPI C [...] evaluation can be referred to the RT Merry Go Round Operator by paging [phone] Comments: Pt. Does not qualify for home oxygen.Electronically signed by Dougie Bright RCP at 06/08 11:51 AM PDTHandoff - Almita Marquez RN - 06/08/2014 11:32 AM PDTPrimary focus o f stay: Right superficial parotidectomy with nerve preservation 06/07 Pertinent history/background: Smoking, brain aneurysm and Alley Cleaner shunt placement, MRSA, COPD, HTN, CVA Comprehensive assessment: Pain assessment: Pt states her pain is #4/10 but does not want pain meds. Pt states h er discomfort is manageable. Spiritual, psych/social findings: Very pleasant woman. Family involved in care. Radha alejandre 02/2013. Medical findings: VSS, A&O X4, OOB to commode, steady on feet, R LAZARA drain, minimal draina ge output. 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 1-2L of O2 & trying to [...] with discussion with MD and RT DC senior buyer planner. Gave pt education at discharge for : COPD: Clearing Lungs. Pt denied pain and any interventions this shift My recommendations forward: Care is complete and pt has been discharged. Patient Stability:Moderately Stable andoff - Linda Hankins RN - 06/08/2014 4:55 AM PDTPrimary focus of stay: Right superficial parotidectomy with nerve preservation 06/07 Pertinent history/background: Smoking, brain aneurysm and Alley Cleaner shunt placement, MRSA, COPD, HTN, CVA Comprehensive [...] Prior medical history: Smoking, brain aneurysm and Alley Cleaner shunt placement, MRSA, COPD, HTN, CV A [...] Additional pain medication information: Functional Epidural: N/A BIODIESEL DIVISION MANAGER: N/A Respiratory: RR: 14, O2 Sat: 96 %, O2 Delivery: Oxymask Breath Sounds: WDL Except DARIEN: LLL: RUL: RLL: MELISSA No Comment: Cardiac: BP: 113/56 mmHg HR: 76 GI: Nausea/Vomiting Status: Yes- Zofran given. Pt states it's better now. Signs/Symptoms: Interventions: Assessment: Comments: : Last void: Around 0730 this am. Will bladder scan soon. Contact Name: Linda disla Contact Number: [phone] Family contacted: No Comment: Belongings: documented in [...] greatest | | | | | | dimension.Hairspring Studder | | | | | | sections are submitted. | | | | | | Cassette | | | | | | Index:A1, uninvolved | | | | | | parotid parenchymaA2, | | | | | | cyst wall nearest | | | | | | parotid parenchymal | | | | | | marginA3-6, | | | | | | telephone services sales representative sections | | | | [...] + + + + + | [facility] | [address] | [place] [address] | | | PATHOLOGY | [address] [...]
--- OUTSIDE RECORDS SUMMARY | ~2019-10-16 | XMS | Encounter Summary ---
Demographics + + + | Address | [address] | | | [place] [address] | + + + | Home Phone | | + + + | Preferred Language | Unknown | + + + | Marital Status | | + + + | Alevism Affiliation | Unknown | + + + | Race | White | + + + | Ethnic Group | Not or | + + + Author + + + | Author | [facility] | | | and [place] | + + + | Organization | [facility] | | | [...] Team Providers + +------+ + | Care Disability Counselor Name | Role | Phone | [...] | | | | | YOSELYNP/BRADY | [address] | [address] Phone: | | | | | Procedures | Phone: | [phone] | | | | | [place] OFFICE | [phone] | Fax: | | | | | CONSULTATION | Fax: | [phone] | | | | | NEW/ESTAB | [phone] | | | | | | PATIENT [...] + + | 03/06/ | Office | [facility] | Remington Prado | NSTEMI (non-ST | | 2016 | Visit | CARDIOLOGY [address] | MD Chadd [address] | elevated myocardial | | | | [place], | [address] [place] | infarction) ([facility]) | | | | [place] [address] | [place] [address] | (Primary Dx); H/O | | | | [phone] | [phone] | cerebral aneurysm | | | | | | repair; Coronary | | | | | | artery disease | | | | | | involving [place] | | | | | | coronary artery of | | | | | | [place] heart without | | | | | [...] of this encounter Progress Notes Renetta Lawson, Meteorologist Liaison - 03/06/2015 10:32 AM PSTFormatting of this [...] Nausea And Vomiting Codeine Nausea And Vomiting [place] Tar Hives Povidone Iodine Hives Sulfa Antibiotics Other reaction(s): Erythema ROS ROS No pertinent changes. She had surgery for a cerebral aneurysm many years ago. One of the screws used to close the skull has become loose and the neurosurgeon in [facility] is planning on revising this situation. OBJECTIVE: [...] ontinue the clopidogrel when she returns to [facility]. Electronically signed by: Abrahan Prado MD [facility] 03/06/2015 Portions of this chart may have been created with [employer] voice recognition software. Occasi onal wrong-word or [...] + + | Coronary artery disease involving akutan coronary artery of akutan heart without | | angina pectoris | + + documented in this encounter
--- OUTSIDE RECORDS SUMMARY | ~2019-10-16 | XMS | Encounter Summary ---
Demographics + + + | Address | [address] | | | [place] [address] | + + + | Home Phone [...] Team Providers + +------+ + | Care Lottery Manager Name | Role | Phone | [...] | | | | s (HCC) | [place], [place] | [place], [place] | | | | | Procedures | [address] | [address] | | | | | REQUEST TO | Phone: | Phone: | | | | | SURGERY | [phone] | [phone] | | | | | SAND CASTER APPRENTICE | Fax: | Fax: | | | | | [place] CREATE | [phone] | [phone] | | | | | SHUNT:VENTRI | [...] | | | [facility] | [facility] [place] | (Subarachnoid | | | | Health and Healing, | [address] | Hemorrhage) (HCC) | | | | [facility] | [phone] | | | | | floor [place], [place] | | | | | | [address] | | | | | | [phone] | | | +--------+---------+ + + + [...] [address] Mailcode: [place] [address] documented in this encou nter Miscellaneous Notes Scan - Noe, Faculty - 04/23/2008 8:23 PM PST can - Noe, Faculty - 04/09/2008 9:15 AM PSTAssociated Or rubi(s): LAB REPORTS can - oNe, Faculty - 04/01/2008 7:33 AM PSTAssociated Order(s): [...]
--- OUTSIDE RECORDS SUMMARY | ~2019-10-16 | XMS | Encounter Summary ---
Demographics + + + | Address | [address] | | | [place] [address] | + + + | Home Phone [...] Team Providers + +------+ + | Care Bowling Ball Patcher Name | Role | Phone | + [...] + + | 09/18/ | Telephone | [facility] | Chana Luu, | Records Request | | 2015 | | CARDIOLOGY [address] | MD [address] | (FROM [facility]) | | | | [place], | [place], [place] | | | | | [place] [address] | [address] | | | | | [phone] | | | +--------+ + + + [...] 12:18 PM PDTFaxed to Venus Ball at [facility] the following, including copy cutter of [facility] request, as requested by Lucille/sheet metal worker helper: Dr. Luu office notes of 09-18-15 and 06-17-15 Also, I have scanned [facility] request in this patient's documents. documented in this encounter Plan of Treatment Not on filedocumented as of this encounter Visit Diagnoses Not on filedocumented in this encounter"
--- OUTSIDE RECORDS SUMMARY | ~2019-10-16 | XMS | Encounter Summary ---
Demographics + + + | Address | [address] | | | [place] [address] | + + + | Home Phone [...] Team Providers + +------+ + | Care Area Attendant Name | Role | Phone | + [...] | | | | Loop Physician's | [place], [place] | | | | | [place], [facility] floor | [address] | | | | | [place], [place] | [phone] | | | | | [address] | | | | | | [phone] | | | +--------+ + + + [...]
--- OUTSIDE RECORDS SUMMARY | ~2019-10-16 | XMS | Encounter Summary ---
Demographics + + + | Address | [address] | | | [place] [address] | + + + | Home Phone [...] Team Providers + +------+ + | Care Workforce Consultant Name | Role | Phone | [...] + + | 09/13/ | Hospital | [facility] [address] | Meeta Donnelly, | | | 2019 - | Encounter | [place] | [address] | | | | | /[id number] [facility] | [address] | | | 09/22/ | | [facility], | [place], [place] | | | 2019 | | [place] [address] | [address] | | | | | [phone] | [phone] | | | | | | | | | | | | Angel See, PA | | | | | | [address] [facility] | | | | | | [address] [place], | | | | | | [place] [address] | | | | | | [phone] | | | | | | | | | | | | Remington Dexter, ELECTRONIC SCIENCE TEACHER | | | | | | [address] [facility] | | | | | | [address] | | | | | | [place], [place] | | | | | | [address] | | | | | | [phone] | | | | | | | | | | | | Carlos Eduardo Maher, [address] | | | | | | [facility] | | | | | | Rd [place], [place] | | | | | | [address] | | | | | | [phone] | | | | | | | | | | | | Ata White MD [address] | | | | | | [facility] | | | | | | Rd [place], [place] | | | | | | [address] | | | | | | [phone] | | | | | | | [...] by ENT Brief Hospital Course: Preadmitted to [facility] ED on 09/13 for scalp wound deshicence. [...] [facility] the [facility] The patient had no post-operative events The [...] to 4:30pm, call the Otolaryngology clinic at [phone]. After hours, weekends, and holidays, call the [facility] gear machine operator at [phone] and as k to have the ENT doctor on-call paged Contact information for after-discharge [facility] . Service: Home Health Services Contact information [address], [address] [phone] Future Appointments Date Time Provider Department Center [...] Pertinent microbiology/pathology: CULTURE, BLOOD BACTI & YEAST [facility] [[id number]] [facility] Collected: 09/20/18 0647 Lab Status: Preliminary result Specimen: Blood Updated: 09/22/18 0055 CULTURE RESULT No growth to date. [facility] CULTURE, AFB (ALL SPEC TYPES EXCEPT BLOOD) [[id number]] LAB Collected: 09/19/181427 Lab Status: Preliminary result Specimen: Tissue from Head Updated: 09/20/18 0441 Narrative: AFB Smear: AFB not detected CULTURE, TISSUE [[id number]] (Abnormal) LAB Collected: 09/19/181427 Lab Status: Preliminary [...] CULTURE, FUNGAL EXCEPT BLOOD, SKIN, HAIR, NAIL [[id number]] LAB Collected: 09/19/18 142 Lab Status: In process Specimen: Tissue from Head Updated: 09/19/18 1453 CULTURE, AFB (ALL SPEC TYPES EXCEPT BLOOD) [[id number]] LAB Collected: 09/19/18 1412 Lab Status: Preliminary result Specimen: Swab from Head Updated: 09/20/18 0441 Narrative: AFB Smear: AFB not detected CULTURE, WOUND DEEP W/ ANAEROBE [[id number]] (Abnormal) LAB Collected: 09/19/18 1412 Lab Status: [...] CULTURE, FUNGAL EXCEPT BLOOD, SKIN, HAIR, NAIL [[id number]] LAB Collected: 09/19/18 1412 Lab Status: In process Specimen: Swab from Head Updated: 09/19/18 1454 CULTURE, BLOOD BACTI & YEAST [facility] [[id number]] [facility] Collected: 09/19/18 0604 Lab Status: Preliminary result Specimen: Blood from Antecubital - right Updated: 09/21/18 0 055 CULTURE RESULT No growth to date. [facility] CULTURE, BLOOD BACTI & YEAST [facility] [[id number]] [facility] Collected: 09/18/18 0535 Lab Status: Preliminary result Specimen: Blood from Hand - left Updated: 09/20/18 0055 CULTURE RESULT No growth to date. [facility] CULTURE, BLOOD BACTI & YEAST [facility] [[id number]] [facility] Collected: 09/17/18 0919 Lab Status: Preliminary result Specimen: Blood from Hand - left Updated: 09/19/18 0055 CULTURE RESULT No growth to date. [facility] CULTURE, BLOOD BACTI & YEAST [facility] [[id number]] (Abnormal) [facility] Collected: 09/14/18 0025 Lab Status: Edited Result - FINAL Specimen: Blood from Peripheral Updated: 09/15/18 0502 CULTURE RESULT [facility] Staphylococcus epidermidisPanic Ref Range: GRAM STAIN Gram Positive BacilliPanic [facility] Gram positive cocci in clustersPanic Ref Range: Comment: This is an appended report. These results have been appended to a previously yovanny l verified report. Narrative: Growth in Aerobic Bottle - GPB only. Growth in Anaerobic Bottle - GPC and GPB. Organism Identified by Molecular ID, to be confirmed by culture. BLOOD CULTURE WORKUP [[id number]] (Abnormal) LAB Collected: 09/14/18 0025 Lab Status: [...] and Neck Surgery Mail Code PV01 [address] [place], [place] [id number] Pager [phone] Consult/Night/Weekend Pager: [phone] documented in this encounter Discharge Instructions Instructions [...] RLB Gram Stain...........: Gram smear performed at [facility]. Culture: Final Report: No growth after 3 [...] Please contact the neurosurgery cooper on-call pager [phone] with questions. Saskia Conway MD Neurosurgery PGY1 Pager: [phone] [facility] - 0 09/21/2018 11:32 AM PDT NEUROSURGERY PROGRESS NOTE Attending Physician: Ata White MD (ENT); Paramjit Huber MD (NSGY) INTERVAL EVENTS: Planning to be discharged tomorrow and stay with her brother in [place] OBJECTIVE: Last 24 hour min/max Temp: 36.7 [...] RLB Gram Stain...........: Gram smear performed at [facility]. Culture: Final Report: No growth after 3 [...] Please contact the neurosurgery cooper on-call pager [phone] with questions. Saskia Conway MD Neurosurgery PGY1 Pager: [phone] iAngie andersen PA-C - 09/21/2018 8:23 AM PDT DOS: 09/21/2018 Head and Neck Surgery Inpatient Daily Progress Note: Primary Care Provider: Mary Vazquez PA-C Admission Date: 09/13/2018 GLORIA ADHIKARI, [id number] Hospital Day #8 SUBJECTIVE INTERVAL EVENTS: - [...] and Neck Surgery Mail Code PV01 [address] [place] [address] Pager [phone] Consult/Night/Weekend Pager: [phone] Saskia Tinoco MD - 09/20/2018 7:54 AM [...] RLB Gram Stain...........: Gram smear performed at [facility]. Culture: Final Report: No growth after 3 [...] management per ENT Please contact the neurosurgery copoer on-call pager [phone] with questions. Saskia Conway MD Neurosurgery PGY1 Pager: [phone] Angie Piña PA-C - 09/20/2018 6:58 AM PDT DOS: 09/20/2018 Head and Neck Surgery Inpatient Daily Progress Note: Primary Care Provider: Mary Vazquez PA-C Admission Date: 09/13/2018 GLORIA ADHIKARI, [id number] Hospital Day #7 SUBJECTIVE INTERVAL EVENTS: - [...] and Neck Surgery Mail Code PV01 [address] [place] [address] Pager [phone] Consult/Night/Weekend Pager: [phone] Hernandez Mistry MD - 09/19/2018 5:58 PM PDTNeurosurgery Post-Op Check 09/19/2018 5:58 PM Examined in 10k Procedure performed: wound revision, mesh explant Awake, alert, oriented to person, place, time Appropriately interactive PERRL, EOMI, FS, TML BUE/BLE / No drift SILT Incision c/d/i. LAZARA bloody. Please page [phone] with any questions Hernandez Wells M.D. Neurosurgery PGY-2 Angie Piña PA-C - 09/19/2018 8:07 AM PDT DOS: 09/19/2018 Head and Neck Surgery Inpatient Daily Progress Note: Primary Care Provider: Mary Vazquez PA-C Admission Date: 09/13/2018 GLORIA ADHIKARI, [id number] Hospital Day #6 SUBJECTIVE INTERVAL EVENTS: - [...] and Neck Surgery Mail Code PV01 [address] [place], [place] [id number] Pager [phone] Consult/Night/Weekend Pager: [phone] ettie Jaramillo PA - 09/19/2018 7:21 AM [...] RLB Gram Stain...........: Gram smear performed at [facility]. Culture: Final Report: No growth after 3 days. Final Report 04/29/2008 Corrected CSF Culture Source...............: Cerebrospinal Fluid RLB Gram Stain...........: Gram smear performed at [facility]. Culture: Rare Methicillin resistant Staphylococcus aureus Final ID MRSA Cefazolin R Clindamycin S Erythromycin R Oxacillin R Penicillin R Tetracycline S Trimeth/Sulfa S Vancomycin S Final Report Comment: Test performed at [facility]. 03/07/2008 Corrected CSF Culture Source...............: Cerebrospinal Fluid RLB Gram Stain...........: Gram smear performed at [facility]. Culture: Final Report: No growth after 3 days. Final Report Comment: Test performed at [facility]. 03/03/2008 Corrected CSF Culture Source...............: Cerebrospinal Fluid RLB Gram Stain...........: Gram smear performed at [facility]. Culture: Final Report: No growth after 3 days. Final Report Comment: Test performed at [facility]. 03/03/2008 Corrected Wound Culture Source...............: Skin Abscess RLB Gram Stain...........: Rare Squamous epithelial cells Rare PMN's Rare Gram positive cocci Culture: 1+ Methicillin resistant Staphylococcus aureus Final ID MRSA Cefazolin R Clindamycin S Erythromycin R Oxacillin R Penicillin R Tetracycline S Trimeth/Sulfa S Vancomycin S Final Report Resulted: 03/05/08 RLB ([facility]) [facility] [address] [place] [address] Comment: Test performed at [facility]. CULTURE RESULT Date Value [...] free tissue flap (08/03/18)no w presenting to [facility] for non-viable flap and concern for underlying [...] wound cultures. Cares per ENT. ANSON MULLINS [facility] [address] [address] [address] Nettie Knowles PA - 09/18/2018 11:09 AM [...] RLB Gram Stain...........: Gram smear performed at [facility]. Culture: Final Report: No growth after 3 days. Final Report 04/29/2008 Corrected CSF Culture Source...............: Cerebrospinal Fluid RLB Gram Stain...........: Gram smear performed at [facility]. Culture: Rare Methicillin resistant Staphylococcus aureus Final ID MRSA Cefazolin R Clindamycin S Erythromycin R Oxacillin R Penicillin R Tetracycline S Trimeth/Sulfa S Vancomycin S Final Report Comment: Test performed at [facility]. 03/07/2008 Corrected CSF Culture Source...............: Cerebrospinal Fluid RLB Gram Stain...........: Gram smear performed at [facility]. Culture: Final Report: No growth after 3 days. Final Report Comment: Test performed at [facility]. 03/03/2008 Corrected CSF Culture Source...............: Cerebrospinal Fluid RLB Gram Stain...........: Gram smear performed at [facility]. Culture: Final Report: No growth after 3 days. Final Report Comment: Test performed at [facility]. 03/03/2008 Corrected Wound Culture Source...............: Skin Abscess RLB Gram Stain...........: Rare Squamous epithelial cells Rare PMN's Rare Gram positive cocci Culture: 1+ Methicillin resistant Staphylococcus aureus Final ID MRSA Cefazolin R Clindamycin S Erythromycin R Oxacillin R Penicillin R Tetracycline S Trimeth/Sulfa S Vancomycin S Final Report Resulted: 03/05/08 RLB ([facility]) [facility] [address] [place] [address] Comment: Test performed at [facility]. CULTURE RESULT Date Value Ref [...] tissue flap (08/03/18) now pres enting to [facility] for non-viable flap and concern for underlying infection/involvement of mesh cranioplasty.Plan for combined surgery (ENT+ NSG) tomorrow. PLAN: OR tomorrow for wound washout, explant of cranioplasty, flap per ENT. NPO after MN. Type and Screen; INR; CBC; BMP. ABX (Zosyn + Vanc) per primary service. Hold prophylactic lovenox. Pre op note forthcoming. ANSON MULLINS [facility] [address] [address] [place] [address] Saskia Tinoco MD - 09/18/2018 10:58 AM [...] Saskia Conway MD Neurological Surgery R1 Pager: [phone] ngie French PA-C - 09/18/2018 8:02 AM PDT DOS: 09/18/2018 Head and Neck Surgery Inpatient Daily Progress Note: Primary Care Provider: Mary Vazquez PA-C Admission Date: 09/13/2018 GLORIA ADHIKARI, [id number] Hospital Day #5 SUBJECTIVE INTERVAL EVENTS: - [...] and Neck Surgery Mail Code PV01 [address] [place] [address] Pager [phone] Consult/Night/Weekend Pager: [phone] Carlos Eduardo Alfonso MD - 0 09/17/2018 10:17 AM PDT DOS: 09/17/2018 Head and Neck Surgery Inpatient Daily Progress Note: Primary Care Provider: Mary Vazquez PA-C Admission Date: 09/13/2018 GLORIA ADHIKARI, [id number] Hospital Day #4 SUBJECTIVE INTERVAL EVENTS: - [...] - Head and Neck Surgery, PGY1 Pager [phone] Overnight/weekend consults pager [phone] I saw and evaluated the patient. I agree with the findings and the plan of care as documejalen benitez in the resident/provider note. Carlos Eduardo Maher MD Helicopter Dispatcher Head and Neck Surgical Oncology Microvascular Reconstructive [...] Please contact the neurosurgery cooper on-call pager [phone] with questions. Alvin Mcclure MD Neurosurgery PGY1 Pager [phone] i, Carlos Eduardo Donald MD - 09/16/2018 8:36 AM PDT DOS: 09/16/2018 Head and Neck Surgery Inpatient Daily Progress Note: Primary Care Provider: Mary Vazquez PA-C Admission Date: 09/13/2018 GLORIA ADHIKARI, [id number] Hospital Day #3 SUBJECTIVE INTERVAL EVENTS: - [...] the resident/provider note. Carlos Eduardo Maher MD Helicopter Dispatcher Head and Neck Surgical Oncology Microvascular Reconstructive [...] Please contact the neurosurgery cooper on-call pager [phone] with questions. Brenda Barillas MD Neurosurgery PGY-1 Pager: [phone] Associated attestation - Alfreda Mccollum MD - 09/16/2018 10:52 AM PDTI agree with the re sident note above. Any changes if any are noted below. Alfreda Mccollum MD Skull Base Fellow Department of Neurological Surgery [facility], [place] Angie French PA-C - 09/15/2018 8:35 AM PDT DOS: 09/15/2018 Head and Neck Surgery Inpatient Daily Progress Note: Primary Care Provider: Mary Vazquez PA-C Admission Date: 09/13/2018 GLORIA ADHIKARI, [id number] Hospital Day #2 SUBJECTIVE INTERVAL EVENTS: No [...] ANGIE FRENCH PA-C Otolaryngology-Head and Neck Surgery [facility] Pager [phone] Shelly Jenkins RT - 09/14/2018 2:59 PM [...] nning. Past Histories Allergies: Allergies Allergen Reactions Custer Tar Hives Betadine [Povidone-Iodine (With Soap)] Rash Cipro [Ciprofloxacin] Nausea and Vomiting Codeine Hcl Nausea and Vomiting Sulfa (Sulfonamide Antibiotics) Erythema Past Surgical History Procedure Laterality Date Partial thyroidectomy Right Hysterectomy Bladder suspension 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 Embossing Calender Operator shunt Tympanoplasty Right 1987 Lumpectomy of left breast 1979 Coronary stent placement 12/28/2014 status post stent placement in the mid LAD Removal of vp sales shunt Cholecystectomy Past Medical History: Diagnosis Date Abnormal LFTs (liver function tests) CAD in [place] artery s/p NSTEMI 12/27/2014; status post stent placement in the mid LAD Chronic pain COPD on oxygen at night Essential hypertension GERD (gastroesophageal reflux disease) Goiter Hemorrhagic stroke ([facility]) 2007 aneurysm MRSA (methicillin resistant staph aureus) culture positive post cariotomy for SAH Otitis media recent abx preadmit PONV (postoperative nausea and vomiting) Subarachnoid hemorrhage due to ruptured aneurysm ([facility]) 2007 Tobacco dependence Family History Problem Relation [...] for input(s): FIO2, PH, PCO2, PO2, HCO3, EKLHH1QYK, N2QZDEXK, [id number] in the l ast 720 hours. CSF [...] RLB Gram Stain...........: Gram smear performed at [facility]. Culture: Final Report: No growth after 3 days. Final Report 04/29/2008 CSF Culture Source...............: Cerebrospinal Fluid RLB Gram Stain...........: Gram smear performed at [facility]. Culture: Rare Methicillin resistant Staphylococcus aureus Final [...] availabl leonides Bridges MD Neurosurgery, PGY-2 Pager [phone] Risk and Morbidity Patient Risk Modifiers - Including but not limited to. Age: 68 y.o. female DNR: Full Code Transfer status/urgency : From Outside Hospital : From [facility] ER: Symptom Onset: More than 12 hours (09/13/18) Patient Acuity: 3 (09/13/182036) Destination: Acute (09/13/182036) Palliative/end of Life Care :No First GCS and if Mechanically Ventilated/Intubated: Best Motor Response: 6-->(M6) obeys commands (09/13/182036) Best Verbal Response: 5-->(V5) oriented (09/13/182036) Best Eye Response: 4-->(E4) spontaneous (09/13/182036) Score ([place]wood Coma Scale): 15 (09/13/182036) Last GCS and if Mechanically Ventilated/Intubation: Best Motor Response: 6-->(M6) obeys commands (09/14/181229) Best Verbal Response: 5-->(V5) oriented (09/14/18 123) Best Eye Response: 4-->(E4) spontaneous (09/14/18 1230) Score ([place]wood Coma Scale): 15 (09/14/18 1230) Comatose State: If GCS<9 Then patient by definition is in a comatose state Score (Elwood Coma Scale) Min: 15 Max: 15 Loss [...] weeks. Continuous tobacco abuse Coronary arteriosclerosis in [place] artery 03/06/2015 History of non-ST elevation myocardial [...] facial drooping at home and went [facility] ED, CT head that was reportedly negative. At ED it was noted she had foul smelling disch arge from wound, contacted her [facility] ENT and referred to [facility] ED. No records of ED visit on [...] CMP WNL, lactate 1.4. Imaging from OSH ([facility] in [place]) being pushed ENT evaluated and await final recs Once stable, the patient was transferred to the Emergency Department Observation Unit with a diagnosis of possible surgical wound infection for continuation of care including observat ion PAST MEDICAL HISTORY: Past Medical History: Diagnosis Date Abnormal LFTs (liver function tests) CAD in [place] s/p NSTEMI 12/27/2014; status post stent [...] Bladder suspension 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 Embossing Calender Operator shunt Tympanoplasty Right 1987 Lumpectomy of left breast 1978 Coronary stent placement 12/28/2014 status post stent placement in the mid LAD Removal of vp sales shunt Cholecystectomy MEDICATIONS: Patient's Medications New [...] medications on file ALLERGIES: Allergies Allergen Reactions Custer Tar Hives Betadine [Povidone-Iodine (With Soap)] Rash [...] PMH of CAD, NSTEMI s/p stenet, HTN, ART THERAPY SPECIALIST D, SAH from ACOM aneurysm rupture, s/p [...] Disposition: TBD after ENT evaluation ANSON Simon [facility] [address] [place] [address] documented in this enco unter Procedure Notes [...] columba lied to it. MD CHANDRIKA Hansen/SWAPNILL /[id number] signed by Ata White MD at 09/27/2018 2:04 PM PDTWaAta michael MD - 09/22/2018 11:27 AM PDTAssociated Order(s): OPERATION RECORDDate of Service: 0 09/19/2018 Attending Surgeon:Ata White MD Lithopone Mill Worker(s):Augusto Shaikh MD. Preoperative Diagnosis: Partially necrotic latissimus [...] sent to recovery room. MD CHANDRIKA Hansen/NGUYEN /[id number] signed by Ata White MD at 09/26/2018 6:17 PM PDTSan Alfreda ray MD - 09/19/2018 5:44 PM PDTAssociated Order(s): OPERATION RECORDProcedure(s ): OPERATION RECORDDate of Procedure: 09/19/18 Attending Surgeon: Alfreda Mccollum MD Lithopone Mill Worker(s): Diana Richey MD, Dillan Bridges MD Preoperative [...] [facility] General anesthesia was induced by the neuroanesthesia team. The eyes were taped shut to prevent corneal abrasion. The patient was placed in the supine position, and all pressure points were carefully padded. The head was secured in the horseshoe head orthopedic team physician. The hair over the area was clipped. [...] x2. Dillan Bridges MD Neurosurgery, PGY-2 Pager [phone] I certify that I was present for and participated in the critical parts of the procedure. I further certify that I was the principal neurosurgeon for this procedure. Alfreda Mccollum MD Clinical Instructor & Skull Base Fellow Department of Neurological Surgery [facility], [place] documented in this encounter [...] on stable regimen. Please page clinical pharmacist (#[phone]) or call central inpatient pharmacy ([phone]) with q uestions. Subjective/Objective: Indication: Cranial flap [...] Pertinent cultures/sensitivities: CULTURE, BLOOD BACTI & YEAST [facility] [[id number]] (Abnormal) [facility] Collected: 09/14/1824 Lab Status: Edited Result - FINAL Specimen: Blood from Peripheral Updated: 09/15/18 0502 CULTURE RESULT [facility] Staphylococcus epidermidisPanic Ref Range: GRAM STAIN Gram Positive BacilliPanic [facility] Gram positive cocci in clustersPanic Ref Range: Comment: This is an appended report. These results have been appended to a previously yovanny l verified report. Narrative: Growth in Aerobic Bottle - GPB only. Growth in Anaerobic Bottle - GPC and GPB. Organism Identified by Molecular ID, to be confirmed by culture. BLOOD CULTURE WORKUP [[id number]] (Abnormal) LAB Collected: 09/14/1824 Lab Status: Final result Specimen: Blood from Peripheral Updated: 09/17/18 1105 CULTURE RESULT LAB Bacillus species, not B anthracisAbnormal Ref Range: [facility] Coagulase negative staphylococcus speciesAbnormal Ref Range: Narrative: Culture Report: Bacillus species, not B. anthracis Coagulase negative Staphylococcus species Growth in Aerobic bottle Growth in Anaerobic bottle Thank you for the consult, Arun Anderson PharmD, [facility] Pager [phone] Courtney Kevin R Ph - 09/16/2018 12:19 [...] to fourth dose. Please page clinical pharmacist ([phone]) or call central inpatient pharmacy ([phone]) with qu estions. Actual body weight: Weight: [...] Pertinent cultures/sensitivities: CULTURE, BLOOD BACTI & YEAST [facility] [[id number]] (Abnormal) [facility] Collected: 09/14/18 0025 Lab Status: Edited Result - FINAL Specimen: Blood from Peripheral Updated: 09/15/18 0502 CULTURE RESULT [facility] Staphylococcus epidermidisPanic Ref Range: GRAM STAIN Gram Positive BacilliPanic [facility] Gram positive cocci in clustersPanic Ref Range: Comment: This is an appended report. These results have been appended to a previously yovanny l verified report. Narrative: Growth in Aerobic Bottle - GPB only. Growth in Anaerobic Bottle - GPC and GPB. Organism Identified by Molecular ID, to be confirmed by culture. Thank you for consult, Courtney Mcmullen [facility]. Pager [phone] Julianna Alexander - 0 09/14/2018 11:28 AM PDT Pharmacist Managed Vancomycin: Initial Note Indication: soft tissue infection Goal trough: 10-15 CrCl: 50-60 ml/min Urine output: not collected in the ED Renal function: stable Assessment/Plan: - Start vancomycin 750 mg IV every 12 hours - Pharmacist will order trough level prior to fourth dose. Please page clinical pharmacist [phone]) or call central inpatient pharmacy ([phone]) with qu estions. Actual body weight: Weight: [...] which date the initial concern by her respiratory care specialist to 08/19/18. She repor ts intermittent right eyelid droop and lip discoordination since discharge but yesterday mellissa yusuf was found to have an acute left sided facial droop so her family brought her to the [facility] emergency department. There, she was [...] ruptured aneurysm (HCC) 2007 Goiter CAD in [place] artery s/p NSTEMI 12/27/2014; status post stent placement in the mid LAD Abnormal LFTs (liver function tests) MRSA (methicillin resistant staph aureus) culture positive post cariotomy for SAH Hemorrhagic stroke (HCC) 2007 aneurysm PONV (postoperative nausea and vomiting) Past Surgical History Procedure Date Partial thyroidectomy Hysterectomy Bladder suspension 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 Embossing Calender Operator shunt Tympanoplasty 1987 Lumpectomy of left breast 1979 Coronary stent placement 12/28/2014 status post stent placement in the mid LAD Removal of vp sales shunt Cholecystectomy Social History Tobacco Use Smoking status: Current Every Day Smoker Packs/day: 1.00 Years: 50.00 Pack years: 50.00 Types: Cigarettes Smokeless tobacco: Never Used Tobacco comment: Substance Use Topics Alcohol use: No Alcohol/week: 0.0 oz Drug use: No Family History Problem Relation Additional Family History Mother dementia Cancer Father brain Cancer Brother lung Allergies Allergen Reactions Custer Tar Hives Betadine [Povidone-Iodine (With Soap)] Rash [...] Resident Physician, PGY2 Otolaryngology, H&N Surgery Pager [phone] This patient's history and examination was discussed with me. I agree with the plan of care that has been recommended. Carlos Eduardo Maher MD Helicopter Dispatcher Head and Neck Surgical Oncology Microvascular Reconstructive Surgery [facility] documented in this encount er ED Notes Nancy Scales RN - 09/14/2018 5:15 PM PDTReport to RN on 10K. Patient to [facility] via stre tcher with transport and all personal belongings. Nancy Jenkins RN - 09/14/2018 3:15 PM PDTPt [facility] t Nancy Jenkins RN - 09/14/2018 2:42 [...] PMH of CAD, NSTEMI s/p stenet, HTN, ART THERAPY SPECIALIST D, SAH from ACOM aneurysm rupture, s/p [...] cranioplasty with the Neurosurgery team 05/09, at [facility] time Dr White/Tesha performed a rotation [...] foul smelling discharge from wound, contacted her [facility] and referred to [facility] ED. No records of ED visit on [...] CMP WNL, lactate 1.4. Imaging from OSH ([facility] in [place]) being pushed ENT evaluated and await final [...] resuming aspirin after surgery Remington Dexter NP [facility] [address] [place] [address] Teaiibcrzhqsay signed by Remington Dexter NP at 09/14/2018 10:55 AM Breanna Sol RN - 09/14/2018 10:34 AM PDTPlease call Home Health when pt is discharging [phone] Kieran Sol RN - 09/14/2018 10:20 AM [...] SBAR to Geovanni HUERTAS and Jacob (nursing services manager)Electronically si gned by Lisa Cordova RN at [...] appears to be at neurol ogical baseline. [place] sandwich provided. Lisa English RN - 09/14/2018 [...] patient was seen at an ED in [place] yesterday for symptoms o f transient [...] the prescription filled. She d rove to [place] today for ENT evaluation as the ED provider in [place] urged her to do so . On [...] weeks. Continuous tobacco abuse Coronary arteriosclerosis in [place] artery 03/06/2015 History of non-ST elevation myocardial [...] ruptured aneurysm (HCC) 2007 Goiter CAD in [place] artery s/p NSTEMI 12/27/2014; status post stent placement in the mid LAD Abnormal LFTs (liver function tests) MRSA (methicillin resistant staph aureus) culture positive post cariotomy for SAH Hemorrhagic stroke (HCC) 2007 aneurysm PONV (postoperative nausea and vomiting) Past Surgical History Procedure Date Partial thyroidectomy Hysterectomy Bladder suspension 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 Embossing Calender Operator shunt Tympanoplasty 1987 Lumpectomy of left breast 1979 Coronary stent placement 12/28/2014 status post stent placement in the mid LAD Removal of vp sales shunt Cholecystectomy Medications Prior to Admission [...] daily. Facility-Administered Medications: None Allergies Allergen Reactions Custer Tar Hives Betadine [Povidone-Iodine (With Soap)] Rash [...] 0.72 0.60 - 1.10 mg/dL EGFR - MARSHALLESE >60 >60 mL/min EGFR NON -MARSHALLESE >60 >60 mL/min SODIUM, PLASMA (LAB) 137 [...] imaging reques eli to be pushed from [facility]. ENT evaluated the patient in the [...] tained via PIV placement using aseptic technique. Spring Setter attempted to obtain second set of b lood cultures via straight stick to the left hand. During draw pt pulled her hand away unexp ectedly almost causing this story writer to stick himself with the needle and pt bled on the floor . Bandage + pressure placed on IV site and blood drops cleaned. Defer second set of BC to charles wright in the visit. ee Ayush salguero RN - 09/13/2018 8:33 PM PDTPt had a flap procedure done 08/06/18 reversing a cranioplasty. Yesterday pt went to [facility] after her son noticed some left [...] he wanted patient to be seen in [facility]. Pr drove from [facility] today. Respirations regular and unlabored, pt [...] prefers the oxymask vs Nasal Cannula (09/14/182038) [facility] IP NURSE HANDOFF: [facility] hospital course events: Admit: Admitted to [facility] wi th TIA, transferred to [facility] with infection and nonviable flap (09/13). Hx: [...] she slept pretty well. HYGIENE/INFECTION Patient/Family Target: Glorai's surgical sites will remain free of infection [...] TIA at home and was admitted to [facility] b efore coming to [facility]. - Encourage increased po intake Barriers to discharge: She will discharge today back to [place]. andoff - Danni Hobson RN - 09/21/2018 11:33 PM PDTNursing Handoff Patient Daily Goal: Go outside to 9th floor (09/17/18815) Patient Specific Preferences: prefers the oxymask vs Nasal Cannula (09/14/182038) [facility] IP NURSE HANDOFF: [facility] hospital course events: Admit: Admitted to [facility] wi th TIA, transferred to [facility] with infection and nonviable flap (09/13). Hx: [...] TIA at home and was admitted to [facility] b efore coming to [facility]. - Encourage increased po intake Barriers to discharge: She will discharge on Tuesday with her friends and her son will pick her up Tuesday from their house. andoff - Nneka Wesley RN - 09/21/2018 2:41 PM PDTNursing Handoff Patient Daily Goal: Go outside to 9th floor (09/17/18815) Patient Specific Preferences: prefers the oxymask vs Nasal Cannula (09/14/182038) [facility] IP NURSE HANDOFF: [facility] hospital course events: Admit: Admitted to [facility] wi th TIA, transferred to [facility] with infection and nonviable flap (09/13). Hx: ruptured A-comm aneurysm with SAH in 2007. 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 Infection, multiple flap revisions. July 2018 [...] TIA at home and was admitted to [facility] b efore coming to [facility]. - Encourage increased po intake Barriers to discharge: She will discharge on Tuesday with her friends and her son will pick her up Tuesday from their house. andoff - Courtney Hankins RN - 09/21/2018 6:44 AM PDTNursing Handoff Patient Daily Goal: Go outside to 9th floor (09/17/18 0816) Patient Specific Preferences: prefers the oxymask vs Nasal Cannula (09/14/182038) [facility] IP NURSE HANDOFF: [facility] hospital course events: Admit: Admitted to [facility] wi th TIA, transferred to [facility] with infection and nonviable flap (09/13). Hx: ruptured A-comm aneurysm with SAH in 2007. 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 Infection, multiple flap revisions. July 2018 [...] TIA at home and was admitted to [facility] b efore coming to [facility]. - Encourage increased po intake Barriers to [...] N - 09/20/2018 6:07 PM PDTAdmitted to [facility] with [facility], transferred to [facility] with infection and nonviable flap (09/13). Hx: ruptured A-comm aneurysm with SAH in 2007. 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 Infection, multiple flap revisions. July 2018 Wound debridement with Rt latissi mus dorsi flap and replacement of mesh cranioplasty. 09/14: Necrotic flap debrided at bedside by ENT 09/19: Scalp rotational flap done in [place] Nursing Handoff Patient Daily Goal: Go outside to 9th floor (09/17/18815) Patient Specific Preferences: prefers the oxymask vs Nasal Cannula (09/14/182038) [facility] IP NURSE HANDOFF: NURSING ASSESSMENT & RECOMMENDATIONS [...] from the [facility]. Physical Therapy Evaluation [phone] GLORIA ADHIKARI [facility] Day: 7 Date of : [...] Abnormal LFTs (liver function tests) CAD in [place] artery s/p NSTEMI 12/27/2014; status post stent placement in the mid LAD Chronic pain COPD on oxygen at night Essential hypertension GERD (gastroesophageal reflux disease) Goiter Hemorrhagic stroke ([facility]) 2007 aneurysm MRSA (methicillin resistant staph aureus) culture positive post cariotomy for SAH Otitis media recent abx preadmit PONV (postoperative nausea and vomiting) Subarachnoid hemorrhage due to ruptured aneurysm ([facility]) 2007 Tobacco dependence Past Surgical History Procedure Laterality Date Partial thyroidectomy Right Hysterectomy Bladder suspension 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 Embossing Calender Operator shunt Tympanoplasty Right 1987 Lumpectomy of left breast 1979 Coronary stent placement 12/28/2014 status post stent placement in the mid LAD Removal of vp sales shunt Cholecystectomy Present at bedside other than patient and physical therapist: Pt's brother and [id number] w Subjective: Feeling better, has been getting up just fine Living Environment: will disch with her brother and [id number]-bme to their home in [facility] [id number] will manage wound care. Otherwise pt lives alone in [place] Prior level of function: independent with mobility and gait Equipment: has 2 helmets at home Patient / Family Goal: get better Communication: [place] Barriers: None Pain: no reports of pain. [...] rehabilitation: assessment and treatme nt (5th ed.). [place]: [facility]. p.[phone] Functional Mobility and Gait: supine to sit independent Sit to stand independent Gait independent x 500 ft, steady with lateral head turns, 90, 180 and 360 deg turns, negot iating obstacles Outcome Measure: 1. [facility] BASIC MOBILITY Difficulty turning over in [...] A Little - Minimal/Contact Guard Assist/Superv ision [facility] Basic Mobility Total Score 23 Interpretation of [facility] Short Form - Basic Mobility: Predicts discharge post hospitalization ([facility] raw score: 6-24) Home = 20.1 Home with home care = 17.9 assisted facility = 13.6 Inpatient rehabilitation facility = 13.6 group home care = 11.5 Susan Ledesma. The use of functional outcome measure in acute care to guide discharg e recommendations. J Acute Application Support Analyst. 2012;3(3):248 Pt Education: Discussed mobility, helmet as [...] acute PT indicated, signing off. Interpretation of [facility] Short Form - Basic Mobility: CMS [...] and ambulate throughout unit with bedside nurse/ PEANUT SHELLER supervision Discharge Recommendations: Intermittent assistance at discharge [...] discharge summary. Jaylon Amor PT, DPT Pager: [phone] androhith - Andree Hagen ra RN - 09/20/2018 11:30 AM PDTNursing Handoff Patient Daily Goal: Go outside to 9th floor (09/17/18 0816) Patient Specific Preferences: prefers the oxymask vs Nasal Cannula (09/14/182038) [facility] IP NURSE HANDOFF: [facility] hospital course events: Admit: Admitted to [facility] wi [facility] TIA, transferred to [facility] with infection and nonviable flap (09/13). Hx: ruptured A-comm aneurysm with SAH in 2007. 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 Infection, multiple flap revisions. July 2018 [...] TIA at home and was admitted to [facility] b efore coming to [facility]. - Encourage increased po intake Barriers to [...] RN - 09/20/2018 1:50 AM PDTNursing Handoff [facility] IP NURSE HANDOFF: [facility] hospital course events: Admit: Admitted to [facility] wi th TIA, transferred to [facility] with infection and nonviable flap (09/13). Hx: ruptured A-comm aneurysm with SAH in 2007. 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 Infection, multiple flap revisions. July 2018 [...] TIA at home and was admitted to [facility] coming to [facility]. - Encourage increased po intake - monitor PVR, last voided at 0600 w/ PVR of 350ml. Barriers to discharge: Pending clinical course andoff - Vida Rogel RN - 09/19/2018 7:02 PM PDTNursing Handoff [facility] IP NURSE HANDOFF: [facility] hospital course events: Admit: Admitted to [facility] wi [facility] TIA, transferred to [facility] with infection and nonviable flap (09/13). Hx: ruptured A-comm aneurysm with SAH in 2007. 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 Infection, multiple flap revisions. July 2018 [...] TIA at home and was admitted to [facility] coming to [facility]. - Encourage increased po intake andoff - [...] pain medication information: none Functional Epidural: N/A CUT OFF TENDER GLASS: N/A Respiratory: RR: 19 , O2 Sat: 90 % , O2 Delivery: Nasal cannula Breath Sounds: Ex (hx copd) DARIEN: LLL: RUL: RLL: MELISSA No Comment: no hx Cardiac: BP: 118/93 HR: 91 GI: Nausea/Vomiting Status: No Signs/Symptoms: Interventions: Assessment: Comments: denies nausea. Zofan and Dex in OR : Last void: buster garcia'saida at end of OR around Contact Name: Feb [phone] Contact Number: Feb [phone] Family contacted: Yes Comment:will update prior to [...] course of c eftriaxone Cardiovascular CAD in [place] artery Assessment & Plan NSTEMI in 2014 [...] FNP - 09/19/2018 2:34 PM PDTAssociated Problem(s): [id number] pack year smoker. 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 RV normal size and function Mild Aortic Regurgitation -maintian telemetry ssessment & Plan Note - Barry Ibrahmi FNP - 09/19/2018 2:26 PM PDTAssociated Problem(s): HTN (hypertension)Systolic goal less than 160 Cont metoprolol xl 50 mg andoff - Claus Adkins RN - 09/19/2018 4:54 AM PDTNursing Handoff Patient Daily Goal: Go outside to 9th floor (09/17/18 0816) Patient Specific Preferences: prefers the oxymask vs Nasal Cannula (09/14/182038) [facility] IP NURSE HANDOFF: [facility] hospital course events: Admitted to [facility] with TIA, transferred to [facility] with infection and nonviable flap (09/13). Hx: ruptured A-comm aneurysm with SAH in 2007. 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 Infection, multiple flap revisions. July 2018 [...] prefers the oxymask vs Nasal Cannula (09/14/182038) [facility] IP NURSE HANDOFF: [facility] hospital course events: Admitted to [facility] with TIA, transferred to [facility] with infection and nonviable flap (09/13). Hx: ruptured A-comm aneurysm with SAH in 2007. 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 Infection, multiple flap revisions. July 2018 [...] RN - 09/18/2018 12:08 PM PDTNursing Handoff [facility] IP NURSE HANDOFF: [facility] hospital course events: Admit: Admitted to [facility] wi [facility] TIA, transferred to [facility] with infection and nonviable flap (09/13). Hx: ruptured A-comm aneurysm with SAH in 2007. 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 Infection, multiple flap revisions. July 2018 [...] TIA at home and was admitted to [facility] b efore coming to [facility]. - Encourage increased po intake lan of Care - Georgia Bangura, PT - 09/18/2018 10:04 AM PDTPHYSICAL THERAPY CONTACT NOTE: Orders received, chart reviewed,patient is heading to OR on 09/19/18.Patient will be evaluat ed post surgery.RN updated.Patient is ad cadence in room with ambulation-as per conversation edith h RN. Georgia Bangura,[place] [id number] signed by Georgia Bangura PT at 09/18/2018 10:06 AM PDTHandoff - Marni Gracia RN - 09/18/2018 1:42 AM PDTNursing Handoff Patient Daily Goal: Go outside to 9th floor (09/17/18 0816) Patient Specific Preferences: prefers the oxymask vs Nasal Cannula (09/14/182038) [facility] IP NURSE HANDOFF: [facility] hospital course events: Admitted to [facility] with TIA, transferred to [facility] with infection and nonviable flap (09/13). Hx: ruptured A-comm aneurysm with SAH in 2007. 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 Infection, multiple flap revisions. July 2018 [...] TIA at home and was admitted to [facility] b efore coming to [facility].(left side droop) - Encourage increased po intake [...] prefers the oxymask vs Nasal Cannula (09/14/182038) [facility] IP NURSE HANDOFF: [facility] hospital course events: Admitted to [facility] with TIA, transferred to [facility] with infection and nonviable flap (09/13). Hx: ruptured A-comm aneurysm with SAH in 2007. 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 Infection, multiple flap revisions. July 2018 [...] TIA at home and was admitted to [facility] b efore coming to [facility].(left side droop) - Encourage increased po intake [...] prefers the oxymask vs Nasal Cannula (09/14/182038) [facility] IP NURSE HANDOFF: [facility] hospital course events: Admit: Admitted to [facility] wi th TIA, transferred to [facility] with infection and nonviable flap (09/13). Hx: ruptured A-comm aneurysm with SAH in 2007. 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 Infection, multiple flap revisions. July 2018 [...] the 9K deck with her brother and [id number] Recommendations Forward: - Scalp rotational flap planned [...] TIA at home and was admitted to [facility] efore coming to [facility]. - Encourage increased po intake - Bowel Incontinence 09/16- hold ss Barriers to discharge: OR Tuesday andoff - Ashley Garcia RN - 09/17/2018 5:52 AM PDTNursing Handoff [facility] IP NURSE HANDOFF: [facility] hospital course events: Admit: Admitted to [facility] th TIA, transferred to [facility] with infection and nonviable flap (09/13). Hx: ruptured A-comm aneurysm with SAH in 2007. 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 Infection, multiple flap revisions. July 2018 [...] TIA at home and was admitted to [facility] efore coming to [facility]. - Encourage increased po intake - Bowel Incontinence 09/16- hold ss Barriers to discharge: OR Tuesday androhith - Shabana Rogel RN - 09/16/2018 6:19 PM PDTNursing Handoff [facility] IP NURSE HANDOFF: [facility] hospital course events: Admit: Admitted to [facility] T[facility], transferred to [facility] with infection and nonviable flap (09/13). Hx: ruptured A-comm aneurysm with SAH in 2007. 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 Infection, multiple flap revisions. July 2018 [...] TIA at home and was admitted to [facility] b efore coming to [facility]. - Encourage increased po intake lan of Care - Tom Harman PT - 09/16/2018 9:26 AM PDTPhysical Therapy Contact Note: Chart reviewed, RN consulted. Per RN, pt currently cleared to be up ad cadence. Plans to go to the OR on 09/19, will follow up following procedure. David Harman PT, DPT Pager: [phone] andoff - Odette Garcia RN - 09/16/2018 5:31 AM PDTNursing Handoff Patient Daily Goal: Get some rest (09/15/182010) Patient Specific Preferences: prefers the oxymask vs Nasal Cannula (09/14/182038) [facility] IP NURSE HANDOFF: [facility] hospital course events: [...] cranioplasty with the Neurosurgery team 05/09, at [facility] time Dr White/Tesha performed a rotation [...] facial drooping at home and went to [facility] ED, CT head that was reportedly negative. At ED it was noted she had foul smelling disch arge from wound, contacted her [facility] and referred to [facility] ED. No records of ED visit on [...] CMP WNL, lactate 1.4. Imaging from OSH ([facility] in [place]) being pushed ENT evaluated and await final [...] Tuesday lan of Care - Venus Basurto [facility] - 09/15/2018 1:55 PM PDTFormatting of this note might be different from t he original. Social Work Psychosocial Assessment Purpose of the Interview: Nurse referral, patient stating that she may not want surgery, wo rried about getting her 'affairs' together Current Living Situation: Patient lives at home by herself in [facility]. Current Social Supports: Patient has a son and daughter in law that live nearby. They stop by in the evenings after work to assist patient with things as needed. Patient has a daugh ter in the [place] area, who stays 'very busy with work.' She has a brother in the [place] area who supports patient as much as able as well. Financial/Insurance status/ Employment/Education or Vocational training: Patient is covered by Medicare. She is retired. No financial concerns discussed. Activities/Spirituality: Not discussed. Medical issues: Patient Active Problem List Diagnosis Chronic obstructive pulmonary disease (HCC) HTN (hypertension) Chronic pain Skull defect Coronary arteriosclerosis in [place] artery History of non-ST elevation myocardial infarction [...] Family Medicine [address] [place] [address] Mental health history: Nothing noted in chart [...] call or page if needed. JUSTINA Peña, [facility] Ore Trimmer [facility] P [id number], [id number] lan of Care - Daniel Wolff i LIVE TRUCK TECHNICIAN - 09/15/2018 9:22 AM PDTFormatting of this [...] prefers the oxymask vs Nasal Cannula (09/14/182038) [facility] IP NURSE HANDOFF: [facility] hospital course events: [...] with the Neurosurgery team 05/09, at [facility] time Dr White/Tesha performed a rotation advancement [...] facial drooping at home and went to [facility] ED, CT head that was reportedly negative. At ED it was noted she had foul smelling disch arge from wound, contacted her [facility] and referred to [facility] ED. No records of ED visit on [...] CMP WNL, lactate 1.4. Imaging from OSH ([facility] in [place]) being pushed ENT evaluated and await final recs Once stable, the patient was transferred to the Emergency Department Observation Unit with a diagnosis of possible surgical wound infection for continuation of care including observat ion SAFETY Patient/Family Target: Gloria will ambulate safely ad cadence Progress to Target: Improving As evidenced by: Gloria is up ad cadence in . Continue to [facility] as she has occassionally endorsed blurry v [...] 09/27/2018 | | 13:25:22DT: 09/27/2018 13:31:49Job #: [id number] | | | |Addendum: This woman had Integra used to reconstruct her scalp. The size of the Integra w as 14 x 5 cm. This was laid into the wound and secured with genoveva and then a dressing columba lied to it. | | | | | | | |Ata White MD | |CHANDRIKA/NGUYEN | | | | | | /[id number] | + + OPERATION RECORD (09/22/2018 11:27 AM PDT) + + | Procedure Note | + + | Ata White MD - 09/22/2018 11:27 AM PDT Date of Service: 09/19/2018 Attending | | Surgeon:Ata White MD Lithopone Mill Worker(s):Augusto Shaikh MD.Preoperative Diagnosis: | | Partially necrotic [...] 09/26/2018 12:12:19DT: | | 09/26/2018 12:30:21Job #: [id number] | |Ata White MD | |MW/MODL | | | | | | /[id number] | + + CBC (HEMOGRAM) ONLY (09/22/2018 [...] [facility] | [address] | [place] [address] | | | SERVICES, CORE | PARK [...] | | | LABORATORY | | | MARSHALLESE | | | SERVICES, | | | [...] + + + + + | [facility] | [address] | [place] [address] | | | SERVICES, RYAN | RAMSES [...] + + + + + | [facility] | [address] | [place] [address] | | | SERVICES, CORE | RAMSES [...] [facility] | [address] | [place] [address] | | | RYAN ORNELAS | RAMSES [...] [facility] | [address] | [place] [address] | | | SERVICES, CORE | PARK [...] | | | LABORATORY | | | MARSHALLESE | | | SERVICES, | | | [...] MDRD equation recommended by the National | [facility] | | Kidney Disease Education Program. Estimated [...] | + + + + + | [facility] | [address] | [place] [address] | | | JOHNSON, RYAN | PARK [...] [facility] | [address] | [place] [address] | | | SERVICES, CORE | PARK [...] [facility] | [address] | [place] [address] | | | SERVICES, CORE | PARK [...] | + + + + + | [facility] | [address] | [place] [address] | | | SERVICES, CORE | RAMSES [...] | + + + + + | [facility] | [address] | [place] [address] | | | SERVICES, CORE | PARK [...] | | | LABORATORY | | | MARSHALLESE | | | SERVICES, | | | [...] MDRD equation recommended by the National | [facility] | | Kidney Disease Education Program. Estimated [...] | + + + + + | [facility] | [address] | [place] [address] | | | SERVICES, CORE | [address] | | | + + + + + OPERATION RECORD (09/19/2018 5:44 PM PDT) + + + | Narrative | Performed At | + + + | Alfreda Mccollum MD 10/03/2018 3:27 PM Date of Procedure: | | | 09/19/18 Attending Surgeon: Alfreda Mccollum | | | Lithopone Mill Worker(s): | | | Diana Richey MD, Dillan [...] | | | the operative room on [facility]. General anesthesia was | | | induced by the neuroanesthesia team. The eyes were taped shut to | | | prevent corneal abrasion. The patient was placed in the supine | | | position, and all pressure points were carefully padded. The head | | | was secured in the horseshoe head orthopedic team physician. The hair over the area was | [...] | Dillan Bridges MD Neurosurgery, PGY-2 Pager [phone] I | | | certify that I was present for and participated in the critical | | | parts of the procedure. I further certify that I was the principal | | | neurosurgeon for this procedure. Alfreda Mccollum MD | | | Clinical Instructor & Skull Base Fellow [phone] Department of | | | Neurological Surgery [facility], [place] | | | | | + + [...] [facility] | [address] | [place], [place] | | | MISTY POINT OF CARE | [address] | [address] | | | TESTS | | | [...] + | [facility] - | [address] | [place] [address] | | | [place] | | | | + + + [...] + | [facility] - | [address] | [place] [address] | | | [place] | | | [...] + | [facility] - | [address] | [place] [address] | | | [place] | | | [...] + | [facility] - | [address] | [place] [address] | | | [place] | | | [...] | polymorphonuclear cells No organisms seen | [place] | + + + + + + [...] + + + + | [facility] - | [address] | [place] [address] | | | [place] | | | | + + + [...] detected | AIR[facility] - | | | [facility] | + + + + + + + + | Performing | Address | City/State/Zipcode | Phone Number | | Organization | | | | + + + + + | [facility] - | [address] | [place] [address] | | | [place] | | | [...] DEPT OF | [address] | [place], [place] | | | CARDIOLOGY | [address] | [address] | | + + + + + [...] - [facility] | [address] | [place], [place] | | | [facility] | [address] | [address] | | | TESTS | | | [...] + + + + + | [facility] | [address] | [place] [address] | | | SERVICES, RYAN | [address] [...] | | | LABORATORY | | | [place]ESE | | | SERVICES, | | | [...] MDRD equation recommended by the National | COSU | | Kidney Disease Education Program. Estimated [...] + + + + + | [facility] | [address] | [place] [address] | | | SERVICES, CORE | [address] [...] + + + + + | [facility] | [address] | [place] [address] | | | SERVICES, RYAN | [address] [...] [facility] | [address] | [place] [address] | | | SERVICES, | [address] [...] | + + + + + | [facility] | [address] | [place] [address] | | | SERVICES, | [address] [...] + + + + + | [facility] | [address] | [place] [address] | | | SERVICES, CORE | PARK [...] + + + + + | [facility] | [address] | [place] [address] | | | SERVICES, CORE | [address] [...] | | | LABORATORY | | | MARSHALLESE | | | SERVICES, | | | [...] [facility] | [address] | [place] [address] | | | SERVICES, CORE | PARK [...] [facility] | [address] | [place] [address] | | | SERVICES, CORE | PARK [...] + + + + + | [facility] | [address] | [place] [address] | | | SERVICES, CORE | [address] [...] | + + + + + | [facility] | [address] | [place] [address] | | | SERVICES, CORE | [address] | | | + + + + + MAGNESIUM, PLASMA (09/17/2018 8:10 AM PDT) + +-------+ + + + | Component | Value | Ref Range | Performed | Pathologist | | | | | At | Signature | + +-------+ + + + | MAGNESIUM,P | 2.5 | 1.6 - 2.6 mg/dL | [facility] | | | [facility] | | | [...] | + + + + + | [facility] | [address] | [place] [address] | | | SERVICES, CORE | [address] [...] | | | LABORATORY | | | MARSHALLESE | | | SERVICES, | | | [...] MDRD equation recommended by the National | [facility] | | Kidney Disease Education Program. Estimated [...] | + + + + + | [facility] | [address] | [place] [address] | | | SERVICES, CORE | [address] | | | + + + + + MAGNESIUM, PLASMA (09/16/2018 9:24 AM PDT) + +-------+ + + + | Component | Value | Ref Range | Performed | Pathologist | | | | | At | Signature | + +-------+ + + + | MAGNESIUM,P | 2.4 | 1.6 - 2.6 mg/dL | [facility] | | | [facility] | | | [...] [facility] | [address] | [place] [address] | | | SERVICES, CORE | PARK [...] | | | LABORATORY | | | MARSHALLESE | | | SERVICES, | | | [...] + + + + + | [facility] | [address] | [place] [address] | | | SERVICES, CORE | PARK [...] | [facility] | [address] | [place] [address] | | | SERVICESRYAN | [address] [...] [facility] | [address] | [place] [address] | | | SERVICES, CORE | PARK [...] | | | LABORATORY | | | MARSHALLESE | | | SERVICES, | | | [...] | + + + + + | [facility] | [address] | [place] [address] | | | JOHNSON, RYAN | PARK [...] + + + + + | [facility] | [address] | [place] [address] | | | JOHNSON, RYAN | [address] [...] + | [facility] - | [address] | [place] [address] | | | [facility] | | | | + + [...] [facility] | [address] | [place], [place] | | | [place]L J[place] OF [facility] | [address] | [address] | | | TESTS | | | [...] + + + + + | [facility] | [address] | [place] [address] | | | SERVICES, RYAN | [address] [...] + + + + + | [facility] | [address] | [place] [address] | | | SERVICES, CORE | PARK [...] [facility] | [address] | [place] [address] | | | SERVICES, CORE | PARK [...] | + + + + + | [facility] | [address] | [place] [address] | | | SERVICES, | [address] [...] [facility] | [address] | [place] [address] | | | SERVICES, CORE | [address] [...] | | | LABORATORY | | | MARSH[place]ESE | | | SERVICES, | | | [...] | + + + + + | [facility] | [address] | [place] [address] | | | SERVICES, RYAN | [address] | | | + + + + + ED INFORMATION EXCHANGE (09/13/2018 8:24 PM PDT) + + | Specimen | + + | | + + + + + | Narrative | Performed At | + + + | [facility]?NOTIFICATION?09/13/2018 20:23?GLORIA ADHIKARI?MRN: | [facility] | | [id number] Criteria Met 5 Visits In 12 Months [...] E.D. Visit Count (12 mo.) Facility Visits [facility] and | | | [facility] 3 [facility] 2 Total 5 Note: | | | Visits indicate total known visits. Recent Emergency Department | | | Visit Summary Date Facility City State Type Diagnoses or Chief | | | Complaint Sep 13, 2018 [facility] [place] | | | [place] Emergency 10,800. post op comp Sep 12, 2018 [facility] | | | [place] Emergency Chief Complaint: POST OP ISSUE | | | July 10, 2018 [facility] [place] Emergency | | | 10,800. CRANIAL PLASTY ISSUE 18,400. Disruption of | | | external operation (surgical) wound, not elsewhere classified, | | | initial encounter 18,400. Other specified postprocedural states | | | May 14, 2018 [facility] [place] | | | Emergency 10,800. post-op complications, open head wound | | | post-op 18,400. Other acquired deformity of head Dec 02, | | | 2017 [facility] [place] Emergency Extradural and | | | subdural abscess, unspecified Headache Chronic obstructive | | | pulmonary disease, unspecified Old myocardial infarction | | | rn long term care (current) use of aspirin Personal history of nicotine | | | dependence Other senior care (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 therapy Allergy | | | status to other antibiotic agents status Allergy status to other | | | drugs, medicaments and biological substances status Allergy | | | status to sulfonamides status Recent Inpatient Visit | | | Summary Date Facility [facility] State Type Diagnoses or Chief Complaint | | | Aug 03, 2018 [facility] [place] Ear, Nose, | | | Throat 18,400. Disruption of external operation (surgical) | | | wound, not elsewhere classified, initial encounter July 10, 2018 | | | [facility] [place] Inpatient | | | 18,400. Other specified postprocedural states 18,400. | | | Disruption of external operation (surgical) wound, not elsewhere | | | classified, initial encounter May 14, 2018 [facility] and | | | [facility] [place] Neuro Surgery 18,400. Other | | | acquired deformity of head May 08, 2018 [facility] | | | [place] Neuro Surgery 18,400. Other acquired | | | deformity of head 18,400. 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 Nontraumatic subarachnoid hemorrhage, unspecified Dec 03, | | | 2018 [facility] [place] Neuro Surgery | | | [...] Portal This patient has registered at the [facility] | | | [place] Emergency Department For more information visit: | | | [email or web address] | | | [email or web address] PLEASE NOTE: 1. Any care recommendations and [...] or completeness of information provided. ? 2019 [employer]PS | | | [employer]. - www.[employer] | | + + + + + [...] Visit Count (12 | | mo.)Facility Visits [facility] 3 [facility] 2 | | Total 5 Note: Visits indicate total known visits. Recent Emergency Department Visit | | SummaryDate Facility City State Type Diagnoses or Chief Complaint Sep 13, 2018 [place] | | [facility] [place] Emergency 10,800. post op comp Sep 12, 2018 | | [facility] [place] Emergency Chief Complaint: POST OP ISSUE July 10, 2018 | | [facility] [place] Emergency 10,800. CRANIAL PLASTY ISSUE | | 18,400. Disruption of external operation (surgical) wound, not elsewhere classified, | | initial encounter 18,400. Other specified postprocedural states May 14, 2018 [place] | | [facility] [place] Emergency 10,800. post-op complications, | | open head wound post-op 18,400. Other acquired deformity of head Dec 02, 2017 [facility] | | [place] [place] Emergency Extradural and subdural abscess, unspecified | | Headache Chronic obstructive pulmonary disease, unspecified Old myocardial | | infarction rn long term care (current) use of aspirin Personal history of nicotine | | dependence Other senior care (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 therapy Allergy status to other | | antibiotic agents status Allergy status to other drugs, medicaments and biological | | substances status Allergy status to sulfonamides status Recent Inpatient Visit | | SummaryDate Facility [facility] Type Diagnoses or Chief Complaint Aug 03, 2018 [place] | | [facility] [place] Ear, Nose, Throat 18,400. Disruption of | | external operation (surgical) wound, not elsewhere classified, initial encounter June | | 2018 [facility] [place] Inpatient 18,400. Other | | specified postprocedural states 18,400. Disruption of external operation (surgical) | | wound, not elsewhere classified, initial encounter May 14, 2018 [facility] and | | [facility] [place] Neuro Surgery 18,400. Other acquired deformity of head | | May 08, 2018 [facility] [place] Neuro Surgery 18,400. | | Other acquired deformity of head 18,400. 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 | | Nontraumatic subarachnoid hemorrhage, unspecified Dec 03, 2017 [facility] and | | [facility] [place] Neuro Surgery 18,400. Other complications [...] patient has registered at the | | [facility] Emergency Department For more information visit: | | [email or web address] PLEASE | | NOTE: 1. Any care [...] completeness of information | | provided.? 2019 [employer] | | Allergy status to other antibiotic agents status | | Allergy status to other drugs, medicaments and biological substances status | | Allergy status to sulfonamides status | | | | | | | |Recent Inpatient Visit Summary | |Date Facility City State Type Diagnoses or Chief Complaint | |Aug 03, 2018 [facility] [place] Ear, Nose, Throat | | 18,400. Disruption of external operation (surgical) wound, not elsewhere classified, init ial encounter | | | |July 10, 2018 [facility] [place] Inpatient | | 18,400. Other specified postprocedural states | | 18,400. Disruption of external operation (surgical) wound, not elsewhere classified, ini tial encounter | | | |May 14, 2018 [facility] [place] Neuro Surgery | | 18,400. Other acquired deformity of head | | | |May 08, 2018 [facility] [place] Neuro Surgery | | 18,400. Other acquired deformity of head | | 18,400. Communicating hydrocephalus | | 18,400. Nontraumatic subarachnoid hemorrhage, unspecified | | | |Dec 03, 2017 [facility] [place] Neuro Surgery | | 18,400. [...] | |This patient has registered at the [facility] and [facility] Emergency Departmen t | |For more information visit: [email or web address] | |PLEASE NOTE: | | 1. Any [...] information provided. | | | |? 2019 [employer]. - www.[employer] | + + + + + + + | Performing | Address | City/State/Zipcode | Phone Number | | Organization | | | | + + + + + | [facility] | [address] | [place], [place] | [phone] | | [employer] | [address] | [address] | | + + + + + documented in this encounter Visit Diagnoses + + | Diagnosis | + + | Postoperative surgical complication involving skin associated with dermatologic | | procedure, unspecified complication - Primary | + + | Skull defect Unspecified acquired deformity of head | + + | HTN (hypertension) Unspecified essential hypertension | + + | CAD in [place] artery Coronary atherosclerosis of [place] coronary artery | + + | HLD [...] | | | | ONCE, 1 dose, [facility] 09/21/18 at 1815 | | PM PDT [...]
--- OUTSIDE RECORDS SUMMARY | ~2019-10-16 | XMS | Encounter Summary ---
Demographics + + + | Address | [address] | | | [place] [address] | + + + | Home Phone [...] Team Providers + +------+ + | Care Scoop Operator Name | Role | Phone | [...] [address] | | | | | [facility] | [facility] | | | | | Hospital Admitting | [place] [address] | | | | | Desk Located on the | [phone] | | | | | 9th floor | | | | | | [place], [place] | Merari Sotomayor CRNA | | | | | [address] | [address] | | | | | | [place] [facility], | | | | | | [place] [address] | | | | | | [phone] | | | | | | | [...] | | | protocol (done by at [facility]) | | | +--------+ + + [...] be different from the original. Cielo Bell [id number] Vitals Value Taken Time BP 124/66 09/19/2018 [...] Name: Nimco Stanley DO Performed by [facility] FORMER Name: Merari Sotomayor CRNA nesthesia Procedure Not [...] diff erent from the original. 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 NSR. Summary: -- Echo (03/02/17 - [facility]): TDS, EF 35-40%, apical 1/3 is aneurysmal, with akinesis in focal a reas of dyskinesis. Grade 1 diastolic dysfunction. Normal RV size and function. Mild AI -- Cardiac Cath (09/15/16): Left ventricular end-diastolic pressure 25. LM-normal. Proximal- mid LAD with patent stents, 40% ISR, FFR 0.85. LCx-normal, OM2-20%. RCA proximal-20%, mid-30 % -- Lexiscan Cardiolite stress test (07[facility]/16[facility]): Severe LV enlargement, marked scarring (co mprising approximately 60% of the entire LV) of the entire anterior, anteroseptal, mid and d istal inferior, inferoseptal, inferolateral and anterolateral segments with no evidence of i schemia, EF 16% -- Echo (12/28/14-[facility]): EF 54%, apical hypokinesis, grade 1 diastolic dysfunction, mild AI -- Cardiac Cath / PCI (12/28/14 - [facility]): LVEDP 35, LM-normal, mid LAD- occluded [...] D 12/2015) medically managed cardiac stents past LA Last LA: > 1 year valvular problems /murmurs AR [...] STEMI s/p BMS (denies symptoms since last LA ~2 years prior -COPD - 3L O2 [...] infarction. NSR. Summary: -- Echo (03/02/17 - [facility]): TDS, EF 35-40%, apical 1/3 is aneurysmal, with akinesis in focal a reas of dyskinesis. Grade 1 diastolic dysfunction. Normal RV size and function. Mild AI -- Cardiac Cath (09/15/16): Left ventricular end-diastolic pressure 25. LM-normal. Proximal- mid LAD with patent stents, 40% ISR, FFR 0.85. LCx-normal, OM2-20%. RCA proximal-20%, mid-30 % -- Lexiscan Cardiolite stress test (07/27/16-[facility]): Severe LV enlargement, marked scarring (co mprising approximately 60% of the entire LV) of the entire anterior, anteroseptal, mid and d istal inferior, inferoseptal, inferolateral and anterolateral segments with no evidence of i schemia, EF 16% -- Echo (12/28/14-[facility]): EF 54%, apical hypokinesis, grade 1 diastolic dysfunction, mild AI -- Cardiac Cath / PCI (12/28/14 - [facility]): LVEDP 35, LM-normal, mid LAD- occluded [...] D 12/2015) medically managed cardiac stents past LA Last LA: > 1 year valvular problems /murmurs AR [...] | | | | | dose on [facility] 09/14/18 at 1630, | | | [...]
--- OUTSIDE RECORDS SUMMARY | ~2019-10-16 | XMS | Encounter Summary ---
Demographics + + + | Address | [address] | | | [place] [address] | + + + | Home Phone [...] Team Providers + +------+ + | Care Fatback Trimmer Name | Role | Phone | [...] | RN | | | | | [place], | | | | | | [place] [address] | | | | | | [phone] | | | +--------+ + + + [...]
--- OUTSIDE RECORDS SUMMARY | ~2019-10-16 | XMS | Encounter Summary ---
Demographics + + + | Address | [address] | | | [place] [address] | + + + | Home Phone [...] Team Providers + +------+ + | Care Oil Operator Name | Role | Phone | [...] | | | [facility] | [place], [place] | frontotemporal | | | | Health and Healing, | [address] | synthetic custom | | | | | [phone] | cranioplasty (dos: | | | | floor [place], [place] | | 05/09/18) with | | | | [address] | | readmission | | | | [phone] | | (05/14/) for | | | [...] is Carri,with the Department of Neurosurgery at [facility]. I am contacting you today in re [...] You can reach the nurse team at [phone]. A voice message was left. If the [...]
--- OUTSIDE RECORDS SUMMARY | ~2019-10-16 | XMS | Encounter Summary ---
Demographics + + + | Address | [address] | | | [place] [address] | + + + | Home Phone [...] Team Providers + +------+ + | Care Copyist Name | Role | Phone | + [...] [address] | [facility] [address] [facility] | | | | | [facility] for | [facility] | | | | | Health and Healing, | [place], [place] | | | | | [facility] | [address] | | | | | floor [place], [place] | [phone] | | | | | [address] | | | | | | [phone] | | | +--------+ + + + [...] Isbell y, 03/06/2015, patient had a recent GA involving left anterior descending coronary artery, s/ p stent placement in mid left anterior descending artery on 12/27/14. They recommend postponi ng an elective surgery for 6 months from her GA on 12/27 (June 2015). She was restarted [...] PMC appointment, same day. Will have our float tender coordinate this.Electro nically signed by ANSON Vasquez [...] MA - 02/25/2015 10:00 AM PSTI called [facility] regarding note s from this patients [...] 11:13 AM PSTRecords request sent via fax [phone].Electronical ly signed by Park Ball at 01/29/2015 [...] discuss clearance fo r procedure by her painting worker as the patient recently suffered from an NSTEMI and underwen t cardiac catheterization. Planned neurosurgery procedure is for explant of hardware, which can be performed with local anesthesia. I have spoken with Dr Chana Luu' RN, Nataliya. Nataliya will speak with either Dr Bell diamond another breeder service technician and call us back to confirm it is ok to proceed with t he procedure. She understands our procedure is not urgent. Cardiology office: [phone] documented in this encounter Plan of Treatment Not on filedocumented as of this encounter Visit Diagnoses Not on filedocumented in this encounter"
--- OUTSIDE RECORDS SUMMARY | ~2019-10-16 | XMS | Encounter Summary ---
Demographics + + + | Address | [address] | | | [place] [address] | + + + | Home Phone [...] Team Providers + +------+ + | Care Electric Crane Operator Name | Role | Phone | [...] [address] | [facility] [address] [facility] | | | | | [facility] for | [facility] | | | | | Health and Healing, | [place], [place] | | | | | [address], | [address] | | | | | floor [place], [place] | [phone] | | | | | [address] | | | | | | [phone] | | | +--------+ + + + [...] exposed hardware, they should bring her to [facility] for a n evaluation, please. (See resident documentation). documented in this encounter Plan of Treatment Not on filedocumented as of this encounter Visit Diagnoses Not on filedocumented in this encounter"
--- OUTSIDE RECORDS SUMMARY | ~2019-10-16 | XMS | Encounter Summary ---
Demographics + + + | Address | [address] | | | [place] [address] | + + + | Home Phone [...] Providers + +------+ + | Care Manager Recovery Name | Role | Phone | + [...] health care) | | | | [facility] for | [place], [place] | | | | | Health and Healing, | [address] | | | | | [place] [address] [facility] | [phone] | | | | | [place], [place] | | | | | | [address] | | | | | | [phone] | | | +--------+ + + + [...] order for Home health Care faxed to [phone] ATTN: Marce Bell - use coversheet. 08 9:30 AM PDTdocumented in this encounter Plan of Treatment Not on filedocumented as of this encounter Visit Diagnoses Not on filedocumented in this encounter"
--- OUTSIDE RECORDS SUMMARY | ~2019-10-16 | XMS | Encounter Summary ---
Demographics + + + | Address | [address] | | | [place] [address] | + + + | Home Phone [...] Team Providers + +------+ + | Care Chief Client Officer Name | Role | Phone | [...]
--- OUTSIDE RECORDS SUMMARY | ~2019-10-16 | XMS | Encounter Summary ---
Demographics + + + | Address | [address] | | | [place] [address] | + + + | Home Phone [...] Team Providers + +------+ + | Care Clean Up Supervisor Name | Role | Phone | [...] | | | | | | Rd [facility] | | | | | | Hospital Admitting | | | | | | Desk Located on the | | | | | | 9th floor | | | | | | [place], [place] | | | | | | [address] | | | +--------+ + + + [...]
--- OUTSIDE RECORDS SUMMARY | ~2019-10-16 | XMS | Encounter Summary ---
Demographics + + + | Address | [address] | | | [place] [address] | + + + | Home Phone [...] Team Providers + +------+ + | Care Buckle Sewer Name | Role | Phone | + [...] | | | | Loop Physician's | [place], [place] | | | | | [place], [email or web address] floor | [address] | | | | | [place], [place] | [phone] | | | | | [address] | | | | | | [phone] | | | +--------+ + + + [...]
--- OUTSIDE RECORDS SUMMARY | ~2019-10-16 | XMS | Encounter Summary ---
Demographics + + + | Address | [address] | | | [place] [address] | + + + | Home Phone [...] Team Providers + +------+ + | Care Engine Lathe Set Up Operator Tool Name | Role | Phone | + [...] | [address] | Hemorrhage) ([facility]); | | | | [facility] | [place], [place] | HTN; COPD | | | | Health and Healing, | [address] | | | | | [facility] | [phone] | | | | | floor [place], [place] | | | | | | [address] | | | | | | [phone] | | | +--------+---------+ + + + [...] back in 3months. MAGNOLIA DIEGO MD NEUROSURGERY [address] [place] [address] [facility], [address]th [place] [address] documented in this encounter Miscellaneous [...]
--- OUTSIDE RECORDS SUMMARY | ~2019-10-16 | XMS | Encounter Summary ---
Demographics + + + | Address | [address] | | | [place] [address] | + + + | Home Phone [...] Team Providers + +------+ + | Care Pump Attendant Name | Role | Phone | [...] + + | 03/02/ | Emergency | [facility] Emergency | | | | 2008 - | | Department [address] | | | | | | Geovanni Melendez | | | | 03/03/ | | [facility] | | | | 2008 | | [place], [place] | | | | | | [address] | | | | | | [phone] | | | +--------+ + + + [...]
--- OUTSIDE RECORDS SUMMARY | ~2019-10-16 | XMS | Encounter Summary ---
Demographics + + + | Address | [address] | | | [place] [address] | + + + | Home Phone [...] Team Providers + +------+ + | Care Vector Control Specialist Name | Role | Phone | [...] | pain, unspecified | | | | [place], | [place], [place] | chronicity (Primary | | | | [place] [address] | [address] | Dx); Fatigue, | | | | [phone] | | unspecified type; | | | | | | NSTEMI (non-ST | | | | | | elevated myocardial | | | | | | infarction) ([facility]); | | | | | | Coronary artery | | | | | | disease involving | | | | | | atka coronary | | | | | | artery of atka | | | | | | heart [...] due to bronchospasm CAD (coronary artery disease), atka coronary artery CURRENT MEDICATIONS Current Outpatient Prescriptions [...] Nausea And Vomiting Codeine Nausea And Vomiting Page Tar Hives Povidone Iodine Hives Sulfa Antibiotics [...] months Electronically signed by: Chana Luu MD [facility] 06/17/2015 Portions of this chart may have been created with [employer] voice recognition software. Occasi onal wrong-word or [...] + | [facility] | [address] | [place] | [phone] | | [facility] | | [address] | | | - LABORATORY | | [...] + | [facility] | [address] | [place] | [phone] | | [facility] | | [address] | | | - LABORATORY | | [...] ST. | [address] | [place] | [phone] | | [facility] | | [address] | | | - LABORATORY | | [...] 10 | 7 - 18 mg/dL | [facility] | | | | | | [facility] | | | | | | MEDICAL | | | | | | CENTER - | | | | | | LABORATORY | | + + + + + + | Creatinine | 0.85 | 0.60 - 1.30 | [facility] | | | | | mg/dL | [facility] | | | | | | MEDICAL | | | | | | CENTER - | | | | | | LABORATORY | | + + + + + + | eGFR, | >60Comment: GLOMERULAR | >=60 | [facility] | | | non- | FILTRATION | mL/min/1.73m2 | [facility] | | | [place] | RATE,ESTIMATED | | MEDICAL | | | | mL/min/1.17l2Bgro than | | CENTER - | | [...] [address] | [place] | [phone] | | [facility] | | [address] | | | - LABORATORY | | [...] + + | Coronary artery disease involving atka coronary artery of atka heart without | | angina pectoris | + + documented in this encounter
--- OUTSIDE RECORDS SUMMARY | ~2019-10-16 | XMS | Encounter Summary ---
Demographics + + + | Address | [address] | | | [place] [address] | + + + | Home Phone [...] Team Providers + +------+ + | Care Biological Sciences Instructor Name | Role | Phone | [...] | | initial | Ashutosh Nora | [place], [place] | | | | | encounter | Rd | [address] | | | | | Procedures | [facility], [place] | Phone: | | | | | CONSULT TO | [address] | [phone] | | | | | ENT / | Phone: | Fax: | | | | | [place] | [phone] | [phone] | | | | | [place] | Fax: | | | | | | | [phone] | | +--------+--------+ + + + + [...] | Surgery Services at | Nora Funes [place], | (Primary Dx) | | | | [facility] [address] | [place] [address] | | | | | [address] | [phone] | | | | | Physician's | | | | | | Pavilion, 2nd floor | | | | | | [place], [place] | | | | | | [address] | | | | | | [phone] | | | +--------+---------+ + + + [...] getting her surgery scheduled. MD CHANDRIKA Hansen/NGUYEN /[id number] signed by Ata White MD at 02/27/2018 10:56 AM Ata Siddiqui MD - 02/24/2018 2:00 PM PSTDictation #1 CSN:[id number] signed by Ata White MD at 02/24/2018 6:06 PM PSTdocumented in this en counter Plan of Treatment Not on filedocumented as of this encounter Visit Diagnoses + + | Diagnosis | + + | History of cranioplasty - Primary | + + documented in this encounter"
--- OUTSIDE RECORDS SUMMARY | ~2019-10-16 | XMS | Encounter Summary ---
Demographics + + + | Address | [address] | | | [place] [address] | + + + | Home Phone [...] Team Providers + +------+ + | Care Ear Pull Machine Operator Name | Role | Phone [...] SYNTHETIC | | 2019 | | [facility] | [address] | CRANIOPLASTY; | | | | [facility] | [place], [place] | | | | | Hospital Admitting | [address] | | | | | Desk Located on the | [phone] | | | | | 9th floor | | | | | | [place], [place] | | | | | | [address] | | | +--------+---------+ + + + [...] Diego MD PCP: Mary Vazquez PA-C Service: [facility] Neurosurgery Diagnoses Principal Final Diagnosis: Right frontotemporal [...] AM Discharging Attending: MD Marni Woods PA-C [facility] [address] [address] [place] [address] documented in t his encounter Discharge Instructions [...] Care Unit Team Progress Note NSICU ASSIGNED #[id number] ICU Admission Reason Most Recent Value ICU [...] daily -prn IV hydralazine 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 Neurologically intact. Transfer to cooper JOSE M EATON MD,PhD Resident Neurological Surgery Pgr. [id number] Associated attestation - Casey Hewitt MD - [...] medication information: see MAR. Functional Epidural: No BANKING SERVICES CLERK: No Respiratory: RR: 15 , O2 Sat: 93 % , O2 Delivery: Nasal cannula Breath Sounds: Ex DARIEN: LLL: RUL: RLL: MELISSA No Comment: Cardiac: BP: 116/61 HR: 67 GI: Nausea/Vomiting Status: No Signs/Symptoms: Interventions: Assessment: Comments: : Last void: goins Contact Name: Juan (sister in law) Contact Number: [phone] Family contacted: Yes Comment:Juan updated via phone. [...] Giovanni Vincent MD PGY-5 Neurological Surgery Pager [phone] documented in this enco unter H&P Notes Susy Vallecillo MD - 05/08/2018 1:14 PM PDTFormatting of this note might be different fr om the original. . 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 Seen with PA/LIVESTOCK RANCHER Amaya Norton. Please see their note for details. I reviewed the documented findings, all data and the recent imaging available. Date of Service: 05/08/2018 Author:SUSY VALLECILLO MD [place] [address] Amaya Pimentel [facility] - 05/08/2018 1:00 PM PDT . 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 Yes Current Assessment & Plan -see [...] Abnormal LFTs (liver function tests) CAD in cowlitz artery s/p NSTEMI 12/27/2014; status post stent placement in the mid LAD Chronic pain COPD on oxygen at night Essential hypertension GERD (gastroesophageal reflux disease) Goiter Hemorrhagic stroke ([facility]) 2007 aneurysm MRSA (methicillin resistant staph aureus) culture positive post cariotomy for SAH Otitis media recent abx preadmit PONV (postoperative nausea and vomiting) Subarachnoid hemorrhage due to ruptured aneurysm ([facility]) 2007 Tobacco dependence Past Surgical History Procedure Laterality Date Partial thyroidectomy Right Hysterectomy Bladder suspension 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 Sample Weaver shunt Tympanoplasty Right 1987 Lumpectomy of left breast 1979 Coronary stent placement 12/28/2014 status post stent placement in the mid LAD Removal of vp cardiovascular service line shunt Cholecystectomy Allergies Allergen Reactions [place] Tar Hives Betadine [Povidone-Iodine (With Soap)] Rash [...] Provider Role Specialty Ipt Critical Care Nsicu #[id number] Treatment Team Ipt Neurosurgery #[id number] Treatment Team Neurological Surgery Patient Lines/Drains/Airways Status [...] ICU NEURO Place of Service:- Inpatient CSN: [id number] Suggested Modifier: None Suggested CPT: TO PUBLICATION SPECIALIST KOKO Hoang Author:KOKO KNIGHT [address] [id number] signed by KOKO Hoang at 05/09/2018 11:10 [...] daily. Facility-Administered Medications: None Allergies Allergen Reactions [place] Tar Hives Betadine [Povidone-Iodine (With Soap)] Rash Cipro [Ciprofloxacin] Nausea and Vomiting Codeine Hcl Nausea and Vomiting Sulfa (Sulfonamide Antibiotics) Erythema Past Medical History: Diagnosis Date Abnormal LFTs (liver function tests) CAD in cowlitz artery Chronic pain COPD Essential hypertension GERD [...] Please contact the Neurosurgery resident on-call pager [phone] with questions or concerns. Vickie Estrada M.D., M.P.H. R2 Resident Physician Neurological Surgery Pager: [phone] signed by Magnolia Diego MD at 05/16/2018 9:09 AM PDTdocumented i n this encounter Procedure Notes Ata White MD - 05/08/2018 2:53 PM PDTAssociated Order(s): OPERATION RECORDDate of Service : 05/08/2018 Attending Surgeon:Ata White MD National Sales Representative(s):Abel Pratt MD Preoperative Diagnosis: Cranioplasty. Postoperative Diagnosis: [...] running continuous fashion. Ata White MD MW/MODL /[id number] signed by Ata White MD at 05/08/2018 3:33 PM PDTDoMagnolia malik MD - 05/08/2018 1:14 PM PDTAssociated Order(s): OPERATION RECORDDate of Service: 05/08/2018 Attending Surgeon: Magnolia Diego MD Co-Surgeon: Ata White MD. National Sales Representative(s): Giovanni Vincent MD. Preoperative Diagnosis: Right frontotemporal [...] head was placed in a horseshoe head charger, and all pressure points were carefully padded. [...] and then affixed them to th e cowlitz skull until they sat flush. Due to [...] further recovery. MD Magnolia Dudley MD CHANTALE/MODL /[id number] I, Dr. Magnolia Diego certify that I was present for and participated in the critical parts of the procedure. I further certify that I was the principal surgeon for this procedure. MAGNOLIA DIEGO MD [facility] [address] [facility] [address] documented in this encou nter Miscellaneous Notes [...] 4L but did not travel here to [facility] with it -stable on 4L NC -RT [...] Goal: sleep and go home tomorrow (05/09/181938) [facility] IP [facility]URSE HANDOFF: [facility] [...] She was discharged home with a P [facility] and received IV ceftriaxone for 6 weeks. [...] BM x2 this shift - RT case technician left O2 tank (x2) at bedside for discharge. Pt continuing to need supplementa l O2 to keep O2 sats >88% Barriers to discharge: DC to home today AM?- Son Augusto will drive from [place] to come [facility] her up in the AM. andoff - Ricarda Navarro RN - 05/09/2018 2:54 PM PDTNursing Handoff Patient Daily Goal: no more stool softeners (05/09/18 5731) [facility] IP [facility]URSE HANDOFF: [facility] [...] She was discharged home with a P [facility] and received IV ceftriaxone for 6 weeks. [...] BM x2 this shift - RT case technician left O2 tank (x2) at bedside for discharge. Pt continuing to need supplementa l O2 to keep O2 sats >88% Barriers to discharge: DC to home tomorrow AM- Son Augusto will drive from [place] to come p ick her up in the AM. andoff - John John RN - 05/09/2018 1:12 PM PDTNursing Handoff [facility] IP [facility]URSE [facility]OFF: [facility] [...] She was discharged home with a P [facility] and received IV ceftriaxone for 6 weeks. [...] tomorrow AM. Son Augusto will drive from [place] to come pick her up in the AM. RT case technician left O2 tank (x2) at bedside for discharge. Pt continuing to need supplemental O2 to keep O2 sats >88% lan of Care - Rula Pacheco, PT - 05/09/2018 9:53 AM PDTFormatting of this note might be different from the orig inal. Physical Therapy Evaluation [id number] [facility]: 1 Date of : 1950 [...] a 68 y.o. female HD#1 with CAD, LA s/p s tent on ASA/plavix, HTN, previous [...] Abnormal LFTs (liver function tests) CAD in cowlitz artery Chronic pain COPD Essential hypertension GERD (gastroesophageal reflux disease) Goiter Hemorrhagic stroke (HCC) 2007 MRSA (methicillin resistant staph aureus) culture positive Otitis media PONV (postoperative nausea and vomiting) Subarachnoid hemorrhage due to ruptured aneurysm (HCC) 2007 Tobacco dependence Past Surgical History: Procedure Laterality Date BLADDER SUSPENSION CHOLECYSTECTOMY CORONARY STENT PLACEMENT 12/28/2014 HYSTERECTOMY LUMPECTOMY OF LEFT BREAST 1979 PARTIAL THYROIDECTOMY Right REMOVAL OF VP CARDIOVASCULAR SERVICE LINE SHUNT REPAIR OF ANEURYSM BY CLIPPING TYMPANOPLASTY Right 1987 VP CARDIOVASCULAR SERVICE LINE SHUNT Living Environment: Patient lives alone in [...] room air fluctuating from 85-91%. Outcome Measure: [facility] BASIC MOBILITY Difficulty turning over in [...] w/railing 4 - None - Modified Independent/Independent [facility] Basic Mobility Total Score 24 Interpretation of [facility] Short Form - Basic Mobility: CMS [...] repiratory DME needed for discharge RT DC Community Outreach Worker delivered 2 tanks for patient discharge to home. Patient might stay with brother in [place] instead of go home to [place]. If patient goes to [place] and stays with her brother, RT DCP with have vendor deliver concen trator. Vendor is [facility] [place] [phone], and [place] [employer] [phone]. The RT finished goods planner will continue to follow . Pager [phone] with any questions. andoff - Nataliya Martinez, ALEKSANDAR - 05/09/2018 2:35 AM PDTNursing Handoff [facility] IP [facility]URSE HANDOFF: [facility] [...] of Care / Advance Care NSICU ASSIGNED #[id number] Date: 05/08/18 Advanced Directives: The patient does not have an advance directive in the EMR. A POLST is not indicated in the EMR. Healthcare Agent(s): Surrogate decision maker has been identified and is : Venessa Gerard (Daughter) , patents can be contacted at . The surrogate decision maker has been listed as the e mergency contact within [employer]. Code Status: Current Code Status Date Active Code Status Order ID Comments User Context 05/08/2018 7:07 AM Full Code [id number] Millicent Tony MD Inpatient Code History: Code Status History Date Active Date Inactive Code Status Order ID Comments User Context 12/03/2017 9:59 PM 12/10/2017 2:28 AM Full Code [id number] Tommie Zarco MD Inpatient 10/23/2015 3:47 PM 10/25/2015 6:29 PM Full Code [id number] Antoinette Adkins MD,PhD Inpatient 10/23/2015 6:46 AM 10/23/2015 3:47 PM Full Code [id number] Tommie Bliss Inpatient 06/07/2014 9:11 AM 06/08/2014 6:06 PM Full Code [id number] Angel Mazariegos MD Inpatient 06/07/2014 6:13 AM 06/07/2014 9:11 AM Full Code [id number] Beny Cruz MD Inpatient 05/13/2008 4:34 PM 05/14/2008 7:21 PM Full Code [id number] Alli Junior MD Inpatient 04/11/2008 5:27 PM 04/13/2008 11:04 PM Full Code [id number] Saskia Nguyen RN Inpatient 03/03/2008 1:17 PM 03/08/2008 10:09 PM Full Code [id number] To Prieto MD Inpatient 03/03/2008 1:16 PM 03/03/2008 1:16 PM DNR/DNI [id number] To Prieto MD Inpatient 03/03/2008 12:06 AM 03/03/2008 1:16 PM Full Code [id number] Marlon Mcintyre MD Inpatient 10/30/2007 10:53 PM 11/02/2007 8:59 PM Full Code [id number] Antoinette Saenz RN Inpatient 10/18/2007 5:01 AM 10/30/2007 10:53 PM Full Code [id number] Norberto Bolaños Inpatient Narrative Summary of Conversation: [...] & Plan N hamzah - Amaya Norton, [facility] - 05/08/2018 1:26 PM PDTAssociated Problem(s): History of non-S T elevation myocardial infarction (NSTEMI)-see ischemic cardiomyopathy plan aboveElectronica lly signed by KOKO Hoang at 05/08/2018 1:26 PM PDTAssessment & Plan Note - Amaya Norton ACNP - 05/08/2018 1:26 PM PDTAssociated Problem(s): CAD in cowlitz artery-see isc hemic cardiomyopathy plan above ssessment [...] Radial less than 1 GIOVANNI VINCENT MD [id number] signed by Magnolia Diego MD at 05/16/2018 [...] [facility] | [address] | [place] [address] | | | SERVICES, CORE | PARK [...] [facility] | [address] | [place] [address] | | | JOHNSON, CORE | PARK [...] [facility] | [address] | [place] [address] | | | SERVICES, CORE | PARK [...] | | | LABORATORY | | | LEBANESE | | | SERVICES, | | | [...] the MDRD equation recommended by the | [employer] | | National Kidney Disease Education Program. [...] | + + + + + | [facility] | [address] | [place] [address] | | | RYAN [place]NELAS | [address] | | | + + + + + PROCEDURE NOTE (05/08/2018 10:26 PM PDT)OPERATION RECORD (05/08/2018 2:53 PM PDT) + + | Procedure Note | + + | Ata White MD - 05/08/2018 2:53 PM PDT Date of Service: 05/08/2018 Attending | | Surgeon:Ata White MD National Sales Representative(s):Abel Pratt MD | | Preoperative Diagnosis: Cranioplasty.Postoperative [...] | MDMW/MODLDD: 05/08/2018 14:29:00DT: 05/08/2018 14:53:38Job #: [id number] | |starting to come through the skin, [...] |MW/MODL | | | | | | /[id number] | + + CBC (HEMOGRAM) ONLY (05/08/2018 [...] | + + + + + | [facility] | [address] [facility] | [place] [address] | | | RYAN [place]NELAS | [address] | | | + + + + + OPERATION RECORD (05/08/2018 1:14 PM PDT) + + | Procedure Note | + + | Magnolia Diego MD - 05/08/2018 1:14 PM PDT Date of Service: 05/08/2018 Attending | | Surgeon: Magnolia Diego MD Co-Surgeon: Ata White MD. National Sales Representative(s): Giovanni | | MD Rakesh. Preoperative Diagnosis: [...] placed | | in a horseshoe head charger, and all pressure points were carefully padded. [...] then affixed them | | to the cowlitz skull until they sat flush. Due to [...] 05/08/2018 11:22:05DT: 05/08/2018 | | 13:14:51Job #: [id number], Dr. Magnolia Diego certify that I was present for and | | participated in the critical parts of the procedure. I further certify that I was the | | principal surgeon for this procedure.EZRA WOODS [id number] | | [id number], [place] [id number] | | | |I, Dr. Magnolia Diego certify that I was present for and participated in the critical parts of the procedure. I further certify that I was the principal surgeon for this procedure. | | | | | | | |MAGNOLIA DIEGO MD | |[facility] | |[address] | |[id number] | |[place] [address] | |[phone] | + + CT HEAD WO CONTRAST [...] | | | LABORATORY | | | LEBANESE | | | SERVICES, | | | [...] | + + + + + | [facility] | [address] | [place] [address] | | | SERVICES, CORE | [address] [...] [facility] | [address] | [place], [place] | | | RA[place]L JAY OF [place] | [address] | [address] | | | TESTS | | | [...] - [facility] | [address] | [place], [place] | | | MISTY POINT OF CARE | [address] | [address] | | | TESTS | | | [...] | + + + + + | [facility] | [address] | [place] [address] | | | SERVICES, CORE | [address] [...] | | | LABORATORY | | | LEBANESE | | | SERVICES, | | | [...] | + + + + + | [facility] [employer] | [address] | [place] [address] | | | SERVICES, CORE | [address] [...] | + + + + + | [facility] | [address] | [place] [address] | | | SERVICES, CORE | [address] [...] [facility] | [address] | [place] [address] | | | SERVICES, | [address] [...] | + + + + + | [facility] | [address] | [place] [address] | | | SERVICES, | [address] [...] [facility] | [address] | [place], [place] | | | [place], [facility] | [address] | [address] | | | TESTS | | | [...]
--- OUTSIDE RECORDS SUMMARY | ~2019-10-16 | XMS | Encounter Summary ---
Demographics + + + | Address | [address] | | | [place] [address] | + + + | Home Phone [...] Team Providers + +------+ + | Care Sanitation Laborer Name | Role | Phone | + [...] | | | hemorrhage) | [address] | [place], [place] | | | | | (HCC) | [place], | [address] | | | | | Procedures | [place] [address] | Phone: | | | | | [place] EST | Phone: | [phone] | | | | | PATIENT | [phone] | Fax: | | | | | LEVEL V | Fax: | [phone] | | | | | | [phone] | | +--------+--------+ + + + + [...] | | | [facility] | [place], [place] | | | | | [facility], | [address] | | | | | [facility] | [phone] | | | | | floor [place], [place] | | | | | | [address] | | | | | | [phone] | | | +--------+---------+ + + + [...] Bety Cavazos MD - 02/24/2018 12:15 PM [facility] NEUROSURGERY CLINIC NOTE Author: BETY CAVAZOS MD Today's Date: 02/22/2018 Attending Physician: Paramjit Huber MD PROCEDURES: 10/18/2007 R pterional crani for clipping of ruptured Acomm aneurysm 03/03/2008 L neck incision and drainage 03/03/2008 HVLP 04/12/2008 R VPS medium pressure 10/23/2015 R synthetic cranioplasty 12/05/2017 explant of R VPS and explant of synthetic cranioplasty HPI: Cielo Bell is a 68 y.o woman with CAD, [place] s/p stent on ASA/plavix, HTN, previo us [...] details of presentation. I spent 15 minutes [id number] with the patient of which greater than [...] s or concerns arise. Paramjit Huber MD Desolderer Director, Cerebrovascular and Skull Base Surgery Department of Neurological Surgery and Interventional Neuroradiology [address] [place] [address] Neurosurgery Attending Note I saw and evaluated this patient on 02/24/2018 with my resident during our neurosurgical clin ic. See also my resident's note from today's visit. I agree with the documentation findings and plan of care. Please refer to Dr. Cavazos's history and physical for details of presentation. I spent 15 minutes [id number] with the patient of which greater than [...] s or concerns arise. Paramjit Huber MD Desolderer Director, Cerebrovascular and Skull Base Surgery Department of Neurological Surgery and Interventional Neuroradiology [address] [place] [address] documented in this encou nter Plan of Treatment Not on filedocumented as of this encounter Visit Diagnoses + + | Diagnosis | + + | Skull defect - Primary Unspecified acquired deformity of head | + + documented in this encounter
--- OUTSIDE RECORDS SUMMARY | ~2019-10-16 | XMS | Encounter Summary ---
Demographics + + + | Address | [address] | | | [place] [address] | + + + | Home Phone [...] Team Providers + +------+ + | Care Trust Administrator Name | Role | Phone | + [...] | | 2019 - | Encounter | [place] [address] | [address] | | | | | [id number] [facility] | [facility] [place] | | | 08/11/ | | [facility], | [address] | | | 2019 | | [place] [address] | [phone] | | | | | [phone] | | | | | | | Ata White MD [address] | | | | | [address] | | | | | | [place], [place] | | | | | | [address] | | | | | | [phone] | | | | | | | [...] transferred to the rosas for continued ac [place] care and q4h flap checks. By POD [...] that I, or Nurse Practitioner or Physician Cider Press Operator working with me, had a face to face encounter with this patient on 08/08/2018 On behalf of Attending Physician: Ata White MD I am ordering and certify that the following services are medically necessary [facility] Long Term Evaluate and Treat Wound care I certify [...] Otolaryngobecka 10/02/2018 12:00 PM MD NITESH Hansen [facility] Otolaryngolo HOW TO REACH US: Tuesday- Tuesday from 8:00am to 4:30pm, call the Otolaryngology clinic at [phone]. After hours, weekends, and holidays, call the [facility] barrel lathe operator at [phone] and as k to have the ENT doctor on-call paged Future Appointments Date Time Provider Department Center 08/17/2018 11:00 AM MD NITESH Hansen Otolaryng[facility]cka 10/02/2018 12:00 PM MD NITESH Hansen [facility] Otolaryngolo Consults obtained: Pertinent imaging: [...] Shelton MD Resident Physician, PGY1 Service Pager: [phone] Valente Valdovinos MD,DD S - 08/10/2018 8:37 AM PDT Head and Neck Surgery Inpatient Daily Progress Note: Primary Care Provider: Mary Vazquez PA-C Admission Date: 08/03/2018 GLORIA ADHIKARI, [id number] Hospital Day #7 PROCEDURES: Dr. iDego 08/03/18 - Right mesh cranioplasty Dr. White [...] Stain...........: Gram smear performed at [facility]. Culture: Final Report: No growth after 3 days. Final Report 04/29/2008 Corrected CSF Culture Source...............: Cerebrospinal Fluid RLB Gram Stain...........: Gram smear performed at [facility]. Culture: Rare Methicillin resistant Staphylococcus aureus Final ID MRSA Cefazolin R Clindamycin S Erythromycin R Oxacillin R Penicillin R Tetracycline S Trimeth/Sulfa S Vancomycin S Final Report Comment: Test performed at [facility]. 03/07/2008 Corrected CSF Culture Source...............: Cerebrospinal Fluid RLB Gram Stain...........: Gram smear performed at [facility]. Culture: Final Report: No growth after 3 days. Final Report Comment: Test performed at [facility]. 03/03/2008 Corrected CSF Culture Source...............: Cerebrospinal Fluid RLB Gram Stain...........: Gram smear performed at [facility]. Culture: Final Report: No growth after 3 days. Final Report Comment: Test performed at [facility]. 03/03/2008 Corrected Wound Culture Source...............: Skin Abscess RLB Gram Stain...........: Rare Squamous epithelial cells Rare PMN's Rare Gram positive cocci Culture: 1+ Methicillin resistant Staphylococcus aureus Final ID MRSA Cefazolin R Clindamycin S Erythromycin R Oxacillin R Penicillin R Tetracycline S Trimeth/Sulfa S Vancomycin S Final Report Resulted: 03/05/08 RLB ([facility]) [facility] [address] [place] [address] Comment: Test performed at [facility]. CULTURE RESULT Date Value Ref Range Status [...] Ok for discharge at any time from [facility] perspective. Mel Shelton MD Resident Physician, PGY1 Service Pager: [phone] Osei Garcia MD - 08/09/2018 8:56 AM [...] Stain...........: Gram smear performed at [facility]. Culture: Final Report: No growth after 3 days. Final Report 04/29/2008 Corrected CSF Culture Source...............: Cerebrospinal Fluid RLB Gram Stain...........: Gram smear performed at [facility]. Culture: Rare Methicillin resistant Staphylococcus aureus Final ID MRSA Cefazolin R Clindamycin S Erythromycin R Oxacillin R Penicillin R Tetracycline S Trimeth/Sulfa S Vancomycin S Final Report Comment: Test performed at [facility]. 03/07/2008 Corrected CSF Culture Source...............: Cerebrospinal Fluid RLB Gram Stain...........: Gram smear performed at [facility]. Culture: Final Report: No growth after 3 days. Final Report Comment: Test performed at [facility]. 03/03/2008 Corrected CSF Culture Source...............: Cerebrospinal Fluid RLB Gram Stain...........: Gram smear performed at [facility]. Culture: Final Report: No growth after 3 days. Final Report Comment: Test performed at [facility]. 03/03/2008 Corrected Wound Culture Source...............: Skin Abscess RLB Gram Stain...........: Rare Squamous epithelial cells Rare PMN's Rare Gram positive cocci Culture: 1+ Methicillin resistant Staphylococcus aureus Final ID MRSA Cefazolin R Clindamycin S Erythromycin R Oxacillin R Penicillin R Tetracycline S Trimeth/Sulfa S Vancomycin S Final Report Resulted: 03/05/08 RLB ([facility]) [facility] [place] [address] [place] [address] Comment: Test performed at [facility]. CULTURE RESULT Date Value Ref Range Status [...] Shelton MD Resident Physician, PGY1 Service Pager: [phone] Associated attestation - Casey Hewitt MD - [...] Vazquez PA-C Admission Date: 08/03/2018 GLORIA ADHIKARI, [id number] Hospital Day #6 PROCEDURES: Dr. Diego 08/03/18 [...] Stain...........: Gram smear performed at [facility]. Culture: Final Report: No growth after 3 days. Final Report 04/29/2008 Corrected CSF Culture Source...............: Cerebrospinal Fluid RLB Gram Stain...........: Gram smear performed at [facility]. Culture: Rare Methicillin resistant Staphylococcus aureus Final ID MRSA Cefazolin R Clindamycin S Erythromycin R Oxacillin R Penicillin R Tetracycline S Trimeth/Sulfa S Vancomycin S Final Report Comment: Test performed at [facility]. 03/07/2008 Corrected CSF Culture Source...............: Cerebrospinal Fluid RLB Gram Stain...........: Gram smear performed at [facility]. Culture: Final Report: No growth after 3 days. Final Report Comment: Test performed at [facility]. 03/03/2008 Corrected CSF Culture Source...............: Cerebrospinal Fluid RLB Gram Stain...........: Gram smear performed at [facility]. Culture: Final Report: No growth after 3 days. Final Report Comment: Test performed at [facility]. 03/03/2008 Corrected Wound Culture Source...............: Skin Abscess RLB Gram Stain...........: Rare Squamous epithelial cells Rare PMN's Rare Gram positive cocci Culture: 1+ Methicillin resistant Staphylococcus aureus Final ID MRSA Cefazolin R Clindamycin S Erythromycin R Oxacillin R Penicillin R Tetracycline S Trimeth/Sulfa S Vancomycin S Final Report Resulted: 03/05/08 RLB ([facility]) [facility] [address] [place] [address] Comment: Test performed at [facility]. CULTURE RESULT Date Value Ref Range Status [...] cranioplasty exposure. She was admitted to neurosurgery [facility] on 07/10 and underwent explant of [...] was made. Ms Adhikari was admitted to [facility] on 08/03 f or right mesh cranioplasty, wound debridement and lat dorsi flap in coordination with Jose Bass and Christopher. PLAN: Wound care per primary team. Encourage mobilization, acute care rehab. OK for DVT prophylaxis from NSG perspective, if felt warranted. Smoking cessation. Neurosurgery to continue to follow. ANSON MULLINS [facility] [address] [address] [place] [address] [id number] signed by ANSON Martinez at 08/08/2018 2:51 PM PDTValente Law i, MD,DDS - 08/08/2018 5:57 AM PDT Head and Neck Surgery Inpatient Daily Progress Note: Primary Care Provider: Mary Vazquez PA-C Admission Date: 08/03/2018 GLORIA MARSHAHARLEY ADHIKARI, [id number] Hospital Day #5 PROCEDURES: Dr. Diego 08/03/18 [...] Stain...........: Gram smear performed at [facility]. Culture: Final Report: No growth after 3 days. Final Report 04/29/2008 Corrected CSF Culture Source...............: Cerebrospinal Fluid RLB Gram Stain...........: Gram smear performed at [facility]. Culture: Rare Methicillin resistant Staphylococcus aureus Final ID MRSA Cefazolin R Clindamycin S Erythromycin R Oxacillin R Penicillin R Tetracycline S Trimeth/Sulfa S Vancomycin S Final Report Comment: Test performed at [facility]. 03/07/2008 Corrected CSF Culture Source...............: Cerebrospinal Fluid RLB Gram Stain...........: Gram smear performed at [facility]. Culture: Final Report: No growth after 3 days. Final Report Comment: Test performed at [facility]. 03/03/2008 Corrected CSF Culture Source...............: Cerebrospinal Fluid RLB Gram Stain...........: Gram smear performed at [facility]. Culture: Final Report: No growth after 3 days. Final Report Comment: Test performed at [facility]. 03/03/2008 Corrected Wound Culture Source...............: Skin Abscess RLB Gram Stain...........: Rare Squamous epithelial cells Rare PMN's Rare Gram positive cocci Culture: 1+ Methicillin resistant Staphylococcus aureus Final ID MRSA Cefazolin R Clindamycin S Erythromycin R Oxacillin R Penicillin R Tetracycline S Trimeth/Sulfa S Vancomycin S Final Report Resulted: 03/05/08 RLB ([facility]) [facility] [address] [place] [address] Comment: Test performed at [facility]. CULTURE RESULT Date Value Ref Range Status [...] exposure. She was [facility] and underwent explant of [...] was made. Ms Adhikari was admitted to [facility] on 08/03 for r ight mesh cranioplasty, wound debridement and lat dorsi flap in coordination with Jose Diego and Christopher. PLAN: Wound care per primary team. Encourage mobilization, acute care rehab. OK for DVT prophylaxis from NSG perspective, if felt warranted. Smoking cessation. Neurosurgery to continue to follow. ANSON MULLINS [facility] [address]K [address] [address] [place] [address] Valente Valdovinos MD,DDS - 08/07/2018 6:04 AM PDTFormatting of this note might be different from the reba l. Head and Neck Surgery Inpatient Daily Progress Note: Primary Care Provider: Mary Vazquez PA-C Admission Date: 08/03/2018 GLORIA ADHIKARI, [id number] Hospital Day #4 PROCEDURES: Dr. White (ENT) [...] place. Muscle exposed, bl eeding appropriately. Previous elvni site with some persistent oozing covered with [...] Shelton MD Resident Physician, PGY1 Service Pager: [phone] Associated attestation - Casey Hewitt MD - [...] Vazquez PA-C Admission Date: 08/03/2018 GLORIA CANTUARD, [id number] Hospital Day #3 PROCEDURES: Dr. White (ENT) [...] Small 1cm punctate area with granulation tissue. Shawnee on neck with dried crust surrounding- removed [...] until POD5 - Continue LAZARA drain - Shawnee removed this morning - DC Vanc/ancef prophylaxis - Continue reg diet - Transfuse 1u PRBC today for hx of ACS and HCT 22 - Continue hep gtt with goal of 50-70 Dispo: Continue rosas care Sabiha Johnson Gen Surg R4 First Call ENT resident telephone interviewer Sabiha Wu M D - 08/05/2018 6:37 AM PDT Head and Neck Surgery Inpatient Daily Progress Note: Primary Care Provider: Mary Vazquez PA-C Admission Date: 08/03/2018 GLORIA ADHIKARI, [id number] Hospital Day #2 PROCEDURES: Dr. White (ENT) [...] forehead with dressing in place and strikethrough. Shawnee on neck with dried crust surrounding. Right [...] Gen Surg R4 First Call ENT resident telephone interviewer Israel Oden ACNP - 08/05/2018 5:41 AM PDT . Neuroscience Intensive Care Unit Team Progress Note NSICU ASSIGNED #[id number] ICU Admission Reason Most Recent Value ICU [...] She was then advised to present to [facility] ED. The patient had denied any fever, [...] Treatment Team Otolaryngology Ipt Critical Care Nsicu #[id number] Treatment Team Ipt Neurosurgery #[id number] Treatment Team Neurological Surgery Patient Lines/Drains/Airways Status Active Lines, Drains and Airways Name: Placement date: Placement time: Site: Days: Drain LAZARA Right Lateral flank 1 08/03/18 1527 flank 1 Drain LAZARA Right Medial flank 2 08/03/18 1527 flank 1 Drain Shawnee Right head 3 08/03/18 1914 head 1 [...] e. Date of Service: 08/05/2018 KOKO JACKSON [facility] DEPARTMENT: ANE ICU NEURO Place of Service:- Inpatient CSN: [id number] Suggested Modifier: None Suggested CPT: TO OUTPATIENT PHARMACY MANAGER Author:KOKO JACKSON [address] [id number] signed by KOKO Jackson at 08/05/2018 10:13 [...] pencil doppler with good Signal over right muslim Incisions: c/d/i, drains with serosanguinous fluid. Soft [...] Otolaryngology-Head & Neck Surgery PGY-2 [facility] ENT telephone interviewer pager [phone] ossVickie MD,MPH - 12:24 AM PDT NEUROSURGERY [...] Stain...........: Gram smear performed at [facility]. Culture: Final Report: No growth after 3 [...] Please contact the Neurosurgery resident on-call pager [phone] with questions or concerns. Vickie Estrada M.D., M.P.H. R2 Resident Physician Neurological Surgery Pager: [phone] signed by Vickie Estrada MD,MPH at 08/05/2018 [...] pencil doppler with good Signal over right muslim Incisions: c/d/i, drains with serosanguinous fluid. Soft [...] Otolaryngology-Head & Neck Surgery PGY-2 [facility] ENT telephone interviewer pager [phone] Georgia Pinto MD - 07/22 9:05 AM PDT . Neuroscience Intensive Care Unit Attending Progress Note Attending Pager #[phone] ICU Admission Reason Most Recent Value ICU [...] She was discharged home the following day [facility] he presented on 05/14/2018 with enlarging [...] She was then advised to present to [facility] ED. The patient had denied any fever, [...] Treatment Team Otolaryngology Ipt Critical Care Nsicu #[id number] Treatment Team Ipt Neurosurgery #[id number] Treatment Team Neurological Surgery Code Status Code Status Full Code The Advanced Care Note for this patient can be found under the notes tab in chart review. Quality section A-Line necessity reviewed: Znno-hw-yocz blood pressure monitoring Benavides necessity reviewed: Plan [...] rec ent imaging available. Author:GEORGIA ARREOLA MD [address] [id number] signed by Georgia Arreola MD at 08/04/2018 9:09 AM P Angie Rodarte PA-C - 08/04/2018 5:59 AM PDT DOS: 08/04/2018 Head and Neck Surgery Inpatient Daily Progress Note: Primary Care Provider: Mary Vazquez PA-C Admission Date: 08/03/2018 GLORIA ADHIKARI, [id number] Hospital Day #1 PROCEDURES: Dr. White (ENT) [...] now -Doppler switch down on POD 5 -Shawnee continue -Flap protocol for blood transfusion Hct <21. Hct 31.4 this am -Continue heparin gtt for 5 days, goal 50-70 Dispo: Okay to transfer to floor, if okay by NICU team. Transfer to ENT head and neck servi ce. ANGIE FRENCH PA-C Department of Otolaryngology/Head and Neck Surgery Mail Code PV01 [address] [place] [address] Pager [phone] Consult/Night/Weekend Pager: [phone] Code Status: FULL ANGIE FRENCH PA-C Otolaryngology-Head and Neck Surgery [facility] Pager [phone] Israel Oden AC CHIEF RECORDIST - 08/04/2018 5:50 AM PDT . Neuroscience Intensive Care Unit Team Progress Note NSICU ASSIGNED #[id number] ICU Admission Reason Most Recent Value ICU [...] She was discharged home the following day [facility] he presented on 05/14/2018 with enlarging [...] She was then advised to present to [facility] ED. The patient had denied any fever, [...] Treatment Team Otolaryngology Ipt Critical Care Nsicu #[id number] Treatment Team Ipt Neurosurgery #[id number] Treatment Team Neurological Surgery Patient Lines/Drains/Airways Status [...] ICU NEURO Place of Service:- Inpatient CSN: [id number] Suggested Modifier: None Suggested CPT: TO OUTPATIENT PHARMACY MANAGER Author:KOKO JACKSON [address] [id number] signed by KOKO Jackson at 08/04/2018 1:55 [...] Stain...........: Gram smear performed at [facility]. Culture: Final Report: No growth after 3 [...] Please contact the Neurosurgery resident on-call pager [phone] with questions or concerns. Vickie Estrada M.D., M.P.H. R2 Resident Physician Neurological Surgery Pager: [phone] signed by Casey Hewitt MD at 08/04/2018 [...] Please contact the Neurosurgery resident on-call pager [phone] with questions or concerns. Vickie Estrada M.D., M.P.H. Resident Physician Neurological Surgery Pager: [phone] signed by Vickie Estrada MD,MPH at 08/03/2018 [...] PTT 55-70. Initial surgical contact: ENT resident telephone interviewer Rosario Sanderson MD Resident, Plastic & Reconstructive Surgery [facility] Pager [phone] documented in this en counter H&P Notes SelbyBarry kwong, RELOCATION DIRECTOR - 08/03/2018 10:59 PM PDTFormatting of this note might be different fr om the original. . Neuroscience Intensive Care Unit Team H&P Note NSICU ASSIGNED #[id number] Days in ICU Days in Hospital Documentation [...] She was discharged home the following day [facility] he presented on 05/14/2018 with enlarging [...] She was then advised to present to [facility] ED. The patient had denied any fever, [...] Abnormal LFTs (liver function tests) CAD in [place] artery s/p NSTEMI 12/27/2014; status post stent [...] suspension 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 Manager Contract shunt Tympanoplasty Right 1987 Lumpectomy of left breast 1979 Coronary stent placement 12/28/2014 status post stent placement in the mid LAD Removal of evp business development shunt Cholecystectomy Allergies Allergen Reactions Ramsey Tar Hives Betadine [Povidone-Iodine (With Soap)] Rash [...] file Gets together: Not on file Attends orthodox service: Not on file Active member of [...] Treatment Team Otolaryngology Ipt Critical Care Nsicu #[id number] Treatment Team Ipt Neurosurgery #[id number] Treatment Team Neurological Surgery Patient Lines/Drains/Airways Status Active Lines, Drains and Airways Name: Placement date: Placement time: Site: Days: Drain LAZARA Right Lateral flank 1 08/03/18 1527 flank less than 1 Drain LAZARA Right Medial flank 2 08/03/18 1527 flank less than 1 Drain Shawnee Right head 3 08/03/18 1914 head less [...] e. Date of Service: 08/03/2018 GRANT Fuentes [address] [id number] signed by GRANT Fuentes at 08/03/2018 11:20 PM Star Ivey MD - 08/03/2018 10:12 PM PDTFormatting of this note might be different f rom the original. . Neuroscience Intensive Care Unit Attending H&P Note Attending Pager #[phone] ICU Admission Reason Most Recent Value ICU [...] She was discharged home the following day [facility] he presented on 05/14/2018 with enlarging [...] She was then advised to present to [facility] ED. The patient had denied any fever, [...] Treatment Team Otolaryngology Ipt Critical Care Nsicu #[id number] Treatment Team Ipt Neurosurgery #[id number] Treatment Team Neurological Surgery Code Status Code Status Full Code The Advanced Care Note for this patient can be found under the notes tab in chart review. Quality section A-Line necessity reviewed: Uows-ry-vrim blood pressure monitoring Benavides necessity reviewed: Plan to DC today I have spent a total of 43 minutes in the direct care and management of this patient indepe ndent of any time spent teaching or performing any separately billable procedures. I reviewe d the documented findings, all data and the recent imaging available. Date of Service: 08/03/2018 Author:STAR VARELA MD [address] [id number] signed by Star Varela MD at 08/03/2018 [...] with cranioplasty exposure. [facility] [place] [facility] [place] [facility]10 and underwent explant [...] daily. Facility-Administered Medications: None Allergies Allergen Reactions Ramsey Tar Hives Betadine [Povidone-Iodine (With Soap)] Rash Cipro [Ciprofloxacin] Nausea and Vomiting Codeine Hcl Nausea and Vomiting Sulfa (Sulfonamide Antibiotics) Erythema Past Medical History: Diagnosis Date Abnormal LFTs (liver function tests) CAD in [place] artery Chronic pain COPD Essential hypertension GERD [...] need to be redone. MD CHANDRIKA Hansen/NGUYEN /[id number] signed by Ata White MD at 08/14/2018 12:15 PM PDTWax , MD Ata - 08/11/2018 12:07 PM PDTAssociated Order(s): OPERATION RECORDDate of Service: 0 08/03/2018 Attending Surgeon:Ata White MD Cider Press Operator(s):Dr. Garcia Preoperative Diagnosis: Cranioplasty infection. Postoperative [...] and the flap was sent up to [facility] d and neck region. The back [...] The vein was measured and a 4.0 resource economist was utilized . We put the 2 [...] till the end of the case. A [facility] Doppler was placed and there was excellent [...] end of the procedure. MD CHANDRIKA Hansen/SWAPNILL /[id number] signed by Ata White MD at 08/11/2018 3:14 PM PDTDog Magnolia vo MD - 08/03/2018 6:27 PM PDTAssociated Order(s): OPERATION RECORDDate of Service: 08/03/2018 Attending Surgeon: MD Magnolia Hansen MD Cider Press Operator(s): MD Abel Clarke MD David J [...] and loose hardware. She underwent a synthetic crawler tractor operator nioplasty at that time. Unfortunately, she then [...] to the operating room theater [facility]. She was given to the anesth [...] and anterior to the bone edges. The [place] 1 was used to dissect the scar tissue and periosteum from the inner [place] of the bony defect . Tenotomies and [...] the case. MD Magnolia Benz MD DJM/MODPatricia /[id number] I, Dr. Magnolia Diego certify that I was present for and participated in the critical parts of the procedure. I further certify that I was the principal surgeon for this procedure. MAGNOLIA DIEGO MD [facility] 7C NSI [address] [address] documented in this encou nter Consult Notes [...] function declines significantly Please page clinical pharmacist [phone]) or call central inpatient pharmacy ([phone]) with qu estions. Actual body weight: Weight: [...] pt. Pt discharged to [facility] in [place]. andoff - Sachin Bradley RN - 08/11/2018 [...] RN - 08/10/2018 7:06 PM PDTNursing Handoff [facility] IP NURSE HANDOFF: Nesbitt hospital course events: [...] RN - 08/10/2018 12:15 AM PDTNursing Handoff [facility] IP NURSE HANDOFF: Nesbitt hospital course events: [...] N - 08/09/2018 3:14 AM PDTNursing Handoff [facility] IP NURSE HANDOFF: Nesbitt hospital course events: [...] RN - 08/08/2018 6:45 PM PDTNursing Handoff [facility] IP NURSE HANDOFF: [facility] hospital course events: [...] within reach at all times (08/05/18 1053) [facility] IP NURSE HANDOFF: [facility] hospital course events: Per previous handoff "Admit: 08/03 Rt crawler tractor operator ni and Rt latissimus dorsi free flap [...] RN - 08/07/2018 1:34 PM PDTNursing Handoff [facility] IP NURSE HANDOFF: [facility] hospital course events: [...] PDTNursing Handoff Patient Daily Goal: Sleep (08/05/18 3457) Patient Specific Preferences: family at bedside/TV on/cell phone within reach at all times (08/05/18 1053) [facility] IP NURSE HANDOFF: [facility] hospital course events: [...] forehead with dressing in place and strikethrough. Evlin on neck removed 08/06 in AM, small [...] PDTNursing Handoff Patient Daily Goal: Sleep (08/05/18 1947) Patient Specific Preferences: family at bedside/TV on/cell phone within reach at all times (08/05/18 1053) [facility] IP NURSE HANDOFF: [facility] hospital course events: [...] forehead with dressing in place and strikethrough. Shawnee on neck with dried crust surrounding. Right [...] exercises Outcome: Goal met Physical Therapy Evaluation [id number] GL[facility] Day: 3 Date of : 1950 [...] Abnormal LFTs (liver function tests) CAD in [place] artery Chronic pain COPD Essential hypertension GERD (gastroesophageal reflux disease) Goiter Hemorrhagic stroke (HCC) 2007 MRSA (methicillin resistant staph aureus) culture positive Otitis media PONV (postoperative nausea and vomiting) Subarachnoid hemorrhage due to ruptured aneurysm (HCC) 2007 Tobacco dependence Past Surgical History: Procedure Laterality Date BLADDER SUSPENSION CHOLECYSTECTOMY CORONARY STENT PLACEMENT 12/28/2014 HYSTERECTOMY LUMPECTOMY OF LEFT BREAST 1978 PARTIAL THYROIDECTOMY Right REMOVAL OF MECHANICAL SERVICE TECHNICIAN SHUNT REPAIR OF ANEURYSM BY CLIPPING TYMPANOPLASTY Right 1987 MECHANICAL SERVICE TECHNICIAN SHUNT Subjective:Patient agreed to work with [...] walker Patient / Family Goal: walk Communication/Barriers: Jordanian/none Pain: none endorsed Vital Signs: stable pre [...] rehabilitation: assessment and treatme nt (5th ed.). [place]: Ochoa Anderson [facility]. p.254 Mobility & Transfers: Supine to [...] gait speed progressed to independent Outcome Measure: [facility] BASIC MOBILITY Difficulty turning over in [...] A Little - Minimal/Contact Guard Assist/Superv ision [facility] Basic Mobility Total Score 21 Interpretation of [facility] Short Form - Basic Mobility: CMS [...] PDTNursing Handoff Patient Daily Goal: Sleep (08/05/18 6757) Patient Specific Preferences: family at bedside/TV on/cell phone within reach at all times (08/05/18 1052) [facility] IP NURSE HANDOFF: [facility] hospital course events: [...] within reach at all times (08/05/18 1053) [facility] IP NURSE HANDOFF: [facility] hospital course events: [...] forehead with dressing in place and strikethrough. Shawnee on neck with dried crust surrounding. Right [...] for heparin infusion as ordered/next APPT dra hoffmna is due at 2049; Monitor drains #1, [...] RN - 08/04/2018 6:37 PM PDTNursing Handoff [facility] IP NURSE HANDOFF: [facility] hospital course events: [...] PM PDTPlan of Care - Mao Correa, TIME STUDY OBSERVER - 08/03/2018 11:07 PM PDTFormatting of this [...] home maintenance therapy. 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 Tympanoplasty Right 1987 Lumpectomy of left breast 1978 Coronary stent placement 12/28/2014 status post stent placement in the mid LAD Removal of evp business development shunt Cholecystectomy Patient Lines/Drains/Airways Status Active Lines, Drains and Airways Name: Placement date: Placement time: Site: Days: Drain LAZARA Right Lateral flank 1 08/03/18 1527 flank less than 1 Drain LAZARA Right Medial flank 2 08/03/18 1527 flank less than 1 Drain Shawnee Right head 3 08/03/18 1914 head less [...] Additional pain medication information: Functional Epidural: N/A PIN CLEANER: N/A Respiratory: RR: 23 , O2 Sat: 92 % , O2 Delivery: Oxymask Breath Sounds: Ex DARIEN: coarse LLL: RUL: coarse RLL: MELISSA No Comment: Cardiac: BP: 103/59 HR: 104 GI: Nausea/Vomiting Status: No Signs/Symptoms: Interventions: Assessment: Comments: : Last void: benavides in place Contact Name: brothpranay Lr Contact Number: [phone] toi Simental Family contacted: Yes Comment: Belongings:1 bag, helmet, dentures and glasses with patient rief Op Note - Sarah Johns MD - 08/03/2018 6:19 PM PDT Brief Op Note Procedure Date: 08/03/2018 Author: SRAAH ENRIQUEZ MD Attending Physician: Magnolia Diego MD [...] 30 degrees Initial surgical contact: NSGY resident telephone interviewer at pager [phone] Patient Lines/Drains/Airways Status Active Lines, Drains and [...] 08/14/2018 10:32:37DT: 08/14/2018 | | 10:59:02Job #: [id number] | + + OPERATION RECORD (08/11/2018 12:07 PM PDT) + + | Procedure Note | + + | Ata White MD - 08/11/2018 12:07 PM PDT Date of Service: 08/03/2018 Attending | | Surgeon:Ata White MD Cider Press Operator(s):Dr. Garcia | | Preoperative Diagnosis: Cranioplasty [...] The vein was measured and a 4.0 resource economist was utilized. We put the 2 ends [...] till the end of the case. A [employer] Doppler was placed and there was excellent [...] MELI White/CAROLYNN: 08/11/2018 14:18:44DT: 08/11/2018 14:50:31Job #: [id number] | + + CBC (HEMOGRAM) ONLY (08/10/2018 [...] + + | [facility] | [address] | [place] [address] | | | SERVICES, RYAN | RAMSES [...] | | | LABORATORY | | | MOZAMBICAN | | | SERVICES, | | | [...] MDRD equation recommended by the National | [facility] | | Kidney Disease Education Program. Estimated [...] + + + + | [facility] | [address] | [place] [address] | | | SERVICES, CORE | RAMSES [...] 60 - 99 mg/dL | [facility] - | | | GLUCOSE, | | [...] [facility] | [address] | [place], [place] | | | RA[facility]L JAY OF CARE | [address] | [address] | | | TESTS | | | [...] + + | [facility] | [address] | [place] [address] | | | SERVICES, CORE | PARK [...] | | | LABORATORY | | | MOZAMBICAN | | | SERVICES, | | | [...] MDRD equation recommended by the National | [facility] | | Kidney Disease Education Program. Estimated [...] + + + + | [facility] | [address] | [place] [address] | | | SERVICES, CORE | RAMSES [...] 60 - 99 mg/dL | [facility] - | | | GLUCOSE, | | [...] [facility] | [address] | [place], [place] | | | MISTY POINT OF CARE | [address] | [address] | | | TESTS | | | [...] MARQU[facility] | [address] | [place], [place] | | | RA[facility]L JAY OF CARE | [address] | [address] | | | TESTS | | | [...] - ERNESTO | [address] | [place], [place] | | | MISTY [facility] | [address] | [address] | | | TESTS | | | [...] [facility] | [address] | [place] [address] | | | SERVICES, CORE | RAMSES [...] + + + + | [facility] | [address] | [place] [address] | | | RYAN ORNELAS | RAMSES [...] | | | LABORATORY | | | MOZAMBICAN | | | SERVICES, | | | [...] + + | [facility] | [address] [facility] | [place] [address] | | | SERVICES, CORE | RAMSES [...] + + | [facility] | [address] [facility] [facility] | [place] [address] | | | SERVICES, RYAN | RAMSES [...] MARQUAM | [address] | [place], [place] | | | MISTY POINT OF CARE | [address] | [address] | | | TESTS | | | [...] - 120) sec Heparin levels of | [facility], CORE | | 0.35 - 0.7 U/mL | | + + + + + + + + | Performing | Address | City/State/Zipcode | Phone Number | | Organization | | | | + + + + + | [facility] | [address] | [place] [address] | | | RYAN ORNELAS | RAMSES [...] - GIRISHAM | [address] | [place], [place] | | | MISTY POINT OF CARE | [address] | [address] | | | TESTS | | | [...] + + + + | [facility] | [address] | [place] [address] | | | SERVICES, CORE | RAMSES [...] 60 - 99 mg/dL | [facility] - | | | GLUCOSE, | | [...] [facility] | [address] | [place], [place] | | | RA[facility]L JAY OF CARE | [address] | [address] | | | TESTS | | | [...] | [facility] | [address] [facility] | [place] [address] | | | SERVICES, CORE | PARK [...] + + | [facility] | [address] | [place] [address] | | | SERVICES, CORE | RAMSES [...] | | | LABORATORY | | | MOZAMBICAN | | | SERVICES, | | | [...] MDRD equation recommended by the National | [facility] | | Kidney Disease Education Program. Estimated [...] + + + + | [facility] | [address] | [place] [address] | | | SERVICES, CORE | RAMSES [...] 60 - 99 mg/dL | [facility] - | | | GLUCOSE, | | [...] + + + | MICHELLE [facility] | [address] | [place], [place] | | | [facility] | [address] | [address] | | | TESTS | | | [...] + + | [facility] | [address] | [place] [address] | | | SERVICES, CORE | PARK [...] MARQUAM | [address] | [place], [place] | | | RAÚL JAY OF CARE | [address] | [address] | | | TESTS | | | [...] + + + + | [facility] | [address] | [place] [address] | | | RYAN ORNELAS | PARK [...] - GIRISHAM | [address] | [place], [place] | | | MISTY POINT OF CARE | [address] | [address] | | | TESTS | | | [...] LABORATORY | [address] | [place] [address] | | | SERVICES, CORE | PARK [...] | + + + + + | [facility] | [address] | [place] [address] | | | SERVICES, | [address] [...] [facility] | [address] | [place] [address] | | | SERVICES, | [address] [...] + + + + | PRODUCT | [id number] | | [facility] | | | UNIT [...] + + + + | EXPIRATION | [id number] | | [facility] | | | DATE [...] + + + + | BLOOD | [id number] | | [facility] | | | PRODUCT [...] + + + + | [facility] | [address] | [place] [address] | | | JOHNSON | RAMSES COURTNEY [...] 60 - 99 mg/dL | [facility] - | | | GLUCOSE, | | [...] [facility] | [address] | [place], [place] | | | [facility] | [facility] | [address] | | | TESTS | | | [...] | [facility] | [address] [facility] | [place] [address] | | | SERVICES, CORE | PARK [...] [facility] | [address] | [place] [address] | | | SERVICES, CORE | PARK [...] | | | LABORATORY | | | MOZAMBICAN | | | SERVICES, | | | [...] MDRD equation recommended by the National | [facility] | | Kidney Disease Education Program. Estimated [...] + + + + | [facility] | [address] [facility] | [place] [address] | | | RYAN ORNELAS | RAMSES [...] ERNESTO | [address] | [place], [place] | | | MISTY POINT OF CARE | [address] | [address] | | | TESTS | | | [...] + + + + | [facility] | [address] | [place] [address] | | | SERVICES, CORE | RAMSES [...] 60 - 99 mg/dL | [facility] - | | | GLUCOSE, | | [...] + + + | MICHELLE [facility] | [address] | [place], [place] | | | [facility] | [address] | [address] | | | TESTS | | | [...] + + | [facility] | [address] [facility] | [place] [address] | | | SERVICES, CORE | RAMSES [...] MARQUAM | [address] | [place], [place] | | | MISTY POINT OF CARE | [address] | [address] | | | TESTS | | | [...] + + + + | [facility] | [address] | [place] [address] | | | SERVICES, CORE | PARK [...] + + + + | [facility] | [address] | [place] [address] | | | SERVICES CORE | PARK [...] | | | LABORATORY | | | MOZAMBICAN | | | SERVICES, | | | [...] + + + + | [facility] | [address] | [place] [address] | | | SERVICES, CORE | PARK [...] + + | [facility] | [address] | [place] [address] | | | SERVICES, CORE | RAMSES [...] [facility] | [address] | [place] [address] | | | SERVICES, CORE | RAMSES [...] ERNESTO | [address] | [place], [place] | | | RAÚL JAY OF OLIVIA | [address] | [address] | | | TESTS | | | [...] [facility] | [address] | [place] [address] | | | SERVICES, RYAN | RAMSES [...] ERNESTO | [address] | [place], [place] | | | MISTY POINT OF CARE | [facility] | [address] | | | TESTS | | | [...] + + + + | [facility] | [address] | [place] [address] | | | SERVICES, CORE | RAMSES [...] + + + + | PRODUCT | [id number] | | [facility] | | | UNIT [...] + + + + | EXPIRATION | [id number] | | [facility] | | | DATE [...] + + + + | BLOOD | [id number] | | [facility] | | | PRODUCT [...] [facility] | [address] | [place] [address] | | | SERVICES, | [address] [...] + + | [facility] | [address] | [place] [address] | | | SERVICES, CORE | RAMSES [...] MARQU[facility] | [address] | [place], [place] | | | MISTY POINT OF CARE | [facility] | [address] | | | TESTS | | | [...] + + + + | [facility] | [address] | [place] [address] | | | SERVICES, RYAN | PARK [...] - MAR[facility] | [address] | [place], [place] | | | RAÚL JAY OF CARE | [address] | [address] | | | TESTS | | | [...] [facility] | [address] | [place], [place] | | | MISTY POINT OF CARE | [address] | [address] | | | TESTS | | | [...] MARQUAM | [address] | [place], [place] | | | RAÚL JAY OF CARE | [facility] | [address] | | | TESTS | | | [...] GIRISHAM | [address] | [place], [place] | | | RA[facility]L [facility]AY [facility] | [address] | [address] | | | TESTS | | | [...] [facility] | [address] | [place] [address] | | | SERVICES, CORE | PARK [...] [facility] | [address] | [place] [address] | | | SERVICES, CORE | RAMSES [...] 60 - 99 mg/dL | [facility] - | | | GLUCOSE, | | [...] [facility] | [address] | [place], [place] | | | RAÚL JAY OF CARE | [facility] | [address] | | | TESTS | | | [...] ERNESTO | [address] | [place], [place] | | | RAÚL JAY OF OLIVIA | [address] | [address] | | | TESTS | | | [...] | + + + + + | [facility] | [address] | [place] [address] | | | SERVICES, CORE | RAMSES [...] | | | LABORATORY | | | MOZAMBICAN | | | SERVICES, | | | [...] MDRD equation recommended by the National | [facility] | | Kidney Disease Education Program. Estimated [...] [facility] | [address] | [place] [address] | | | SERVICES, CORE | PARK [...] + + + + | [facility] | [address] | [place] [address] | | | SERVICES, CORE [...] 60 - 99 mg/dL | [facility] - | | | GLUCOSE, | | [...] + + + | [facility] | [address] | [place], [place] | | | MISTY POINT OF CARE | [address] | [address] | | | TESTS | | | [...] MARQU[facility] | [address] | [place], [place] | | | MISTY POINT OF CARE | [address] | [address] | | | TESTS | | | [...] | + + + + + | [facility] | [address] | [place] [address] | | | SERVICES, CORE | RAMSES [...] MAR[facility] | [address] | [place], [place] | | | RAÚL JAY OF CARE | [address] | [address] | | | TESTS | | | [...] [facility] | [address] | [place] [address] | | | SERVICES, CORE | RAMSES [...] [facility] | [address] | [place], [place] | | | MISTY POINT OF CARE | [address] | [address] | | | TESTS | | | | + + + + + OPERATION RECORD (08/03/2018 6:27 PM PDT) + + | Procedure Note | + + | Magnolia Diego MD - 08/03/2018 6:27 PM PDT Date of Service: 08/03/2018 Attending | | Surgeon: MD Magnolia Hansen MD Cider Press Operator(s): Rosario Pettit | | MD Abel [...] operating room | | [facility]. She was given to the anesthesia [...] to the bone | | edges. The [place] 1 was used to dissect the scar tissue and periosteum from the inner | | [place] of the bony defect. Tenotomies and blunt [...] | | 08/03/2018 15:19:29DT: 08/03/2018 15:55:39Job #: [id number], Dr. Magnolia Diego | | certify that I was present for and participated in the critical parts of the procedure. | | I further certify that I was the principal surgeon for this procedure.MAGNOLIA DIEGO, | | EZRA Pearson [id number] [facility] [id number]/[id number], [place] [id number] | |Magnolia Diego MD | |MICHAELM/MODL | | | | | | /[id number] | | | |I, Dr. Magnolia Diego certify that I was present for and participated in the critical parts of the procedure. I further certify that I was the principal surgeon for this procedure. | | | | | | | |MAGNOLIA DIEGO MD | |MICHELLE Pearson NSI | |[address] | |[id number] | |[place] [address] | |[phone] | + + ANTIBODY SCREEN (08/03/2018 10:50 [...] [facility] | [address] | [place] [address] | | | SERVICES, | [address] [...] [facility] | [address] | [place] [address] | | | SERVICES, | [address] [...] [facility] | [address] | [place], [place] | | | MISTY POINT OF CARE | [address] | [address] | | | TESTS | | | [...] | | | | | dose, Starting [facility] 08/03/18 at | | | | | [...]
--- OUTSIDE RECORDS SUMMARY | ~2019-10-16 | XMS | Encounter Summary ---
Demographics + + + | Address | [address] | | | [place] [address] | + + + | Home Phone [...] Team Providers + +------+ + | Care Onyx Chip Terrazzo Worker Name | Role | Phone | + +------+ + | Mary Vazquez PA-C | PCP | | + +------+ + Encounter Details +--------+ + + + + | Date | Type | Department | Care Team | Description | +--------+ + + + + | 05/13/ | Telephone | Neurosurgery at | Piotr Townsend, | | | 2018 | | [facility] [address] | [address] | | | | | [place] for | [facility] | | | | | [facility], | [place], [place] | | | | | [address], | [address] | | | | | floor [place], [place] | [phone] | | | | | [address] | | | | | | [phone] | | | +--------+ + + + [...] this encounter Miscellaneous Notes Telephone Encounter - Piotr Townsend MD - 05/13/2018 4:05 PM PDT Neurosurgery Telephone Note Ms. Bell is a 68-year-old female with [...] synthetic cranioplasty with flap placement per ENT. Patients daughter calls in. Discharged Tuesday. Reports R side frontal forehead redness, area that appears "shiny", open that is oozing dax ar yellowish liquid but this not part of the incision. Concern for open oozing sore. No fevers, no chills, eating well, moving arms legs well. Wound looks good, genoveva intact, no leaking from incision. A/P: Possible infection. - Present to ED for evaluation - Daughter in understanding of plan Piotr Townsend MD Neurosurgery Resident Pager #[phone] NSGY pager #[phone] documented in this e ncounter Plan of Treatment Not on filedocumented as of this encounter Visit Diagnoses Not on filedocumented in this encounter
--- OUTSIDE RECORDS SUMMARY | ~2019-10-16 | XMS | Encounter Summary ---
Demographics + + + | Address | [address] | | | [place] [address] | + + + | Home Phone [...] Team Providers + +------+ + | Care Semiconductor Bonder Name | Role | Phone | + [...] defect (Primary Dx) | | | | [facility] | | | | | | Health and Healing, | | | | | | Building | | | | | | floor [place], [place] | | | | | | [address] | | | | | | [phone] | | | +--------+---------+ + + + [...] shortly before that appointment she suffered an [place] and was placed on asp irin and [...] DO Skull Base Fellow Department of Neurosurgery [facility] documented in this enc ounter Plan of Treatment Not on filedocumented as of this encounter Visit Diagnoses + + | Diagnosis | + + | 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
--- OUTSIDE RECORDS SUMMARY | ~2019-10-16 | XMS | Encounter Summary ---
Demographics + + + | Address | [address] | | | [place] [address] | + + + | Home Phone | | + + + | Preferred Language | Unknown | + + + | Marital Status | | + + + | Gnosticism Affiliation | Unknown | + + + | Race | White | + + + | Ethnic Group | Not or | + + + Author + + + | Author | [facility] | | | and [place] | + + + | Organization | [facility] | | | [...] Team Providers + +------+ + | Care Parts Delivery Driver Name | Role | Phone | [...] | | | [address] | [place] [address] | | | | | [place], [place] | | | | | | [address] | | | | | | [phone] | | | +--------+ + + + [...]
--- OUTSIDE RECORDS SUMMARY | ~2019-10-16 | XMS | Encounter Summary ---
Demographics + + + | Address | [address] | | | [place] [address] | + + + | Home Phone [...] Team Providers + +------+ + | Care Insecticide Supervisor Name | Role | Phone | [...] | | | | Loop Physician's | [place], [place] | | | | | [place], [facility] floor | [address] | | | | | [place], [place] | [phone] | | | | | [address] | | | | | | [phone] | | | +--------+ + + + [...]
--- OUTSIDE RECORDS SUMMARY | ~2019-10-16 | XMS | Encounter Summary ---
Demographics + + + | Address | [address] | | | [place] [address] | + + + | Home Phone [...] Team Providers + +------+ + | Care Evaluator Transfer Students Name | Role | Phone | + [...]
--- OUTSIDE RECORDS SUMMARY | ~2019-10-16 | XMS | Encounter Summary ---
Demographics + + + | Address | [address] | | | [place] [address] | + + + | Home Phone [...] Team Providers + +------+ + | Care Trench Trimmer Fine Name | Role | Phone | + [...] | | | | | [place]ora [place], | | | | | | [place] [address] | | | +--------+--------+ + + + [...]
--- OUTSIDE RECORDS SUMMARY | ~2019-10-16 | XMS | Encounter Summary ---
Demographics + + + | Address | [address] | | | [place] [address] | + + + | Home Phone [...] Team Providers + +------+ + | Care Key Attendant Name | Role | Phone | + +------+ + | Mary Vazquez PA-C | PCP | | + +------+ + Reason for Visit + + + | Reason | Comments | + + + | Recheck Surgical | Craioplasty surg site infection | | Wound | | + + + AUTH/CERT +--------+--------+ [...] + + + + | 05/14/ | Hospital | [facility] 10K 808 Machelle Ruiz MD | | | 2019 - | Encounter | [place] | [address] | | | | | [id number] MDS[address] | [address] [place], | | | 05/17/ | | H[facility] [place], | [place] [address] | | | 2018 | | [place] [address] | [phone] | | | | | [phone] | | | | | | | Manas Spear MD | | | | | | [address] | | | | | | [place], [place] | | | | | | [address] | | | | | | [phone] | | | | | | | | | | | | Paramjit Huber MD | | | | | | [address] | | | | | | [place], [place] | | | | | | [address] | | | | | | [phone] | | | | | | | [...] + + + | Blood Pressure | 119/101 | 05/17/2018 3:42 PM | | | | | PDT | | + + + + + | Pulse | 93 | 05/17/2018 3:42 PM | | | | | PDT | | + + + + + | Temperature | 36.3 C (97.3 F) | 05/17/2018 3:42 PM | | | | | PDT | | + + + + + | Respiratory Rate | 16 | 05/17/2018 3:42 PM | | | | | PDT | | + + + + + | Oxygen Saturation | 92% | 05/17/2018 3:42 PM | | | | | PDT | | + + + + + | Inhaled Oxygen | - | - | | | Concentration | | | | + + + + + | Weight | 50 kg (110 lb 3.7 | 05/15/2018 1:16 AM | | | | oz) | PDT | | + + + + + | Height | - | - | | + + + + + | Body Mass Index | 22.26 | 05/08/2018 7:20 AM | | | [...] documented as of this encounter Discharge Summaries Dave Almita Santos AGACNP - 05/17/2018 12:30 PM PDTFormatting of this note might be d ifferent from the original. NEUROSURGERY DISCHARGE SUMMARY: Patient: Cielo Bell Admission Date: 05/14/2018 Discharge Date: 05/17/2018 Attending Physician: Paramjit Huber MD PCP: Mary Vazquez PA-C Service: [facility] Neurosurgery Diagnoses Principal Final Diagnosis: Wound dehiscence s/p cranioplasty and rotational flap closure Additional Diagnoses: - Pseudomeningocele - Acquired skull defect - COPD - HTN - CAD - Current smoker Procedures 05/14/18: Suture repair of scalp defect at bedside (by ENT) Brief Hospital Course Cielo Bell is a 68 y.o. 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 The patient was lost to follow up for many years and then in 2015 presented with resorpti on of her bone flap and loose hardware, for which ahe underwent a synthetic custom craniopla sty at that time.The patient re-presented in November 2017 withright sided wound dehiscen ce and epidural MSSA wound infection for which she underwent explant of right frontal VPS an d right cranioplasty, and was discharged home with a PICC and received IV ceftriaxone for 6 weeks. She represented electively on 05/09/18 for right synthetic frontotemporal cranioplasty with rotational scalp flap perENT (Dr White) and discharged home the following day. She represented on 05/14/18 with slowly enlarging right frontal fluid collection where the s kin overlying the fluid collection was erythematous and warmer than that overlying the contr alateral head, andCT scan showed a large extra-axial fluid collection that was hyperdense to CSF. ENT drained the fluid collection, cleaned up the flap and revised/reinforced the wou nd with nylon sutures, and the wound has remained intact over the last few days without evid ence of leak and with decreased erythema. The cultures from the aspirate have had no growth to date, and she has remained afebrile without leukocytosis. The plan is for her to discharg e home today (05/17/18), and she will email us a picture of her incision in 1 week. We will a lso have her return to clinic for her post-op visit and suture removal on 06/02/18. PCP:Mary Vazquez PA-C When: Please follow-up with [...] headaches, dizziness, or visual changes Medication List CONTINUE taking these medications acetaminophen 325 mg Tab Commonly known as: TYLENOL Take 1-2 tablets by mouth every four hours as needed. Indications: Pain ascorbic acid (vitamin C) 500 mg Tab Take 1 tablet by mouth two times daily. aspirin EC 81 mg Tbec Take 1 tablet by mouth once daily. Do not restart aspirin until 2 weeks after surgery-05/24 Start taking on: 05/24/2018 atorvastatin 80 mg Tab Commonly known as: [...] Take 1 tablet by mouth once daily. Warning Symptoms and Signs Please call the Neurosurgery clinic at [phone] with any questions Tuesday to Tuesday 8 A M - 4 PM. After hours, call [facility] at [phone] and ask to speak with the Neurosurgery resi dent new home sales consultant if you have any of the following: - Difficulty breathing or shortness of breath; - Excessive bleeding or drainage from incision sites; - Fevers, chills, sweats; - Persistent nausea or vomiting; - Change in mental status; Other Discharge Orders and Instructions Please take a picture of your incision in 1 week (05/24/18), and email to jhonathan Rodriguez rosurgery nurse practitioner at: [email or web address] Diet Regular Regular diet- There are no restrictions to your diet. You may eat or drink whatever you pr efer, though healthy food choices are recommended. Activity 1) You should not drive until seen in clinic and no longer taking opioid pain medication. 2) Avoid activities that might precipitate trauma to head or falls. 3) No pushing, pulling, bending, reaching; no lifting greater than 10 pounds for at least 2 weeks. 4) Walking, even if for brief periods, is an important part of your post operative recover y and helps decrease pain. Condition on Discharge Good Wound Care: 1) Keep your incision site [...] may it ch. 5) Your sutures are absorbable and will come out on their own. 6) Monitor surgical site for evidence of warmth, redness, and drainage. Special Instructions/Tests: Take photo of incision and email to Anuradha Acosta NP on 9. Upcoming appointments: Future Appointments Date Time Provider Department Center 06/02/2018 2:00 PM [facility] Neurosurgery 06/26/2018 12:00 PM Ata White MD [place] [address] Otolaryngolo Condition On Discharge: Good Vital Signs at discharge as appropriate: BP: 115/57 (05/17/18 1208) Pulse: 85 (05/17/18 1208) Resp: 18 ( 1208) Weight: 50 kg (110 lb 3.7 oz) (05/15/18 0116) Physical Exam: Awake, alert and oriented to person, place, time, situation PERRL, gaze conjugate, EOMI, VFI, faces symmetric (w exception of skull defect), TML No apparent deficits with recall, awareness, reasoning/problem-solving Fluent and articulate without evidence of aphasia or dysarthria Manasa, equal strength and sensation to light touch intact BUE/BLE Surgical incision clean/dry/intact; no erythema or drainage noted, ballotable area at R tem ple that is soft (dependent, small fluid collection) Shoulder shrug symmetrical, no pronator drift Discharge Patient To: Home Does patient have a planned readmission: No Discharge Summary Completed?: Yes. 05/17/2018 Discharging Provider: ELAINE Bee Date Completed: 05/17/2018 Time Completed: 12:30 PM Discharging Attending: MD Almita Woods AGACNP Neurological Surgery 05/17/18, 12:30 PM [address] [address] [place] [address] doramila cintron in this encounter Medications at Time of [...] documented as of this encounter Progress Notes Marni Manning PA-C - 05/16/2018 12:40 PM PDTFormatting of this note might be differe nt from the original. NEUROLOGICAL SURGERY INPATIENT PROGRESS NOTE Hospital Day:2 Author: Marni Manning PA-C Attending Physician: Paramjit Huber MD Interval Hx: No acute events VSS, AF Physical Exam: Last Vitals: BP 116/56 (BP Location: Right upper arm, Patient Position: Sitting) | Pulse 84 | Temp 36. 7 C (98.1 F) | Resp 18 | Wt 50 kg (110 lb 3.7 oz) | SpO2 (!) 87% | BMI 22.26 kg/m | BSA 1.44 m O2 Delivery Device: Oxymask (05/16/18 0401) 24 Hour Vital Min/Max: Systolic (24hrs), Av , Min:101 , Max:133 Diastolic (24hrs), Av, Min:51, Max:66 Pulse Min: 84 Max: 101 Temp Min: 36.7 C (98.1 F) Max: 36.8 C (98.2 F) Resp Min: 18 Max: 20 SpO2 Min: 87 % Max: 94 % Intake/Output Summary (Last 24 hours) at 05/16/18 1240 Last data filed at 05/16/18 0401 Gross per 24 hour Intake 850 ml Output 0 ml Net 850 ml Physical Exam: Awake, alert and oriented to person, place, time, situation PERRL, gaze conjugate, EOMI, VFI, faces symmetric (w exception of skull defect), TML No apparent deficits with recall, awareness, reasoning/problem-solving Fluent and articulate without evidence of aphasia or dysarthria Manasa, equal strength and sensation to light touch intact BUE/BLE Surgical incision clean/dry/intact; no erythema or swelling noted, no active drainage. Mild fluctuance noted superior to incision (R forehead area). Nylons in place. Shoulder shrug symmetrical, no pronator drift Labs: No new labs 3/24 Gram smear from wound: no organisms seen 3/24 Wound cx; in process 3/ Blood cx X2 NGTD Current Medications: acetaminophen (TYLENOL) tablet 650 mg, 650 mg, oral, Q4H PRN artificial tears (dextran 70-hypromellose) (NATURE'S TEARS) 0.1-0.3 % ophthalmic drops 1 dr op, 1 drop, Both Eyes, Q2H PRN ascorbic acid (vitamin C) tablet 500 mg, 500 mg, oral, BID atorvastatin (LIPITOR) tablet 80 mg, 80 mg, oral, DAILY bisacodyl (DULCOLAX) suppository 10 mg, 10 mg, rectal, DAILY PRN ipratropium-albuterol (DUO-NEB) nebulizer solution 3 mL, 3 mL, inhalation, BID metoprolol succinate (TOPROL-XL) tablet 50 mg, 50 mg, oral, DAILY nicotine (NICOTROL) 14 mg/24 hr 1 patch, 1 patch, transdermal, DAILY PRN ondansetron (ZOFRAN) tablet 8 mg, 8 mg, oral, Q12H PRN oxyCODONE (immediate release) (ROXICODONE) tablet 5 mg, 5 mg, oral, Q6H PRN polyethylene glycol (MIRALAX) packet 34 g, 34 g, oral, TID PRN prochlorperazine (COMPAZINE) injection 5-10 mg, 5-10 mg, intravenous, Q6H PRN prochlorperazine (COMPAZINE) tablet 5-10 mg, 5-10 mg, oral, Q6H PRN senna-docusate (SENOKOT S) 8.6-50 mg 1 tablet, 1 tablet, oral, BID spironolactone (ALDACTONE) tablet 25 mg, 25 mg, oral, DAILY IMAGING: No new imaging ASSESSMENT: Cielo Bell is a 68 y.o. female with history of remote subarachnoid hemorrhage due to a ruptured A-Comm aneurysm. Her subarachnoid hemorrhage was complicated by posthemo rrhagic hydrocephalus, which required a ventriculoperitoneal shunt, and a left superficial n karli abscess that required drainage. The patient was lost to followup for many years and th en in 2015 presented with resorption of her bone flap and loose hardware. The patient unde rwent a synthetic custom cranioplasty at that time.The patient re-presented in November, with right sided wound dehiscence and epidural MSSA wound infection for which she underwe nt explant of right frontal VPS and right cranioplasty. She was discharged home with a PICC and received IV ceftriaxone for 6 weeks. She represented on 05/09/18 for right synthetic fron totemporal cranioplasty with rotational scalp flap per ENT and discharged home the following day. She represented on 05/14/18 with slowly enlarging right frontal fluid collection. The skin o verlying the fluid collection was erythematous and warmer than that overlying the contralate ral head, and CT scan showed a large extra-axial fluid collection, hyperdense to CSF. ENT ained the fluid collection, cleaned up the flap and revised/reinforced the wound, and the pl an at this point is to watch for a couple of days to see whether the wound integrity holds u p vs consideration of re-do wound revision that will likely need free flap and skin graft. W ound remains intact wo evidence of leak and w decreased erythema, likely patient will d/c ho me tomorrow. PLAN: Neurological: - Continue acute care therapies - Pain control: prn tylenol, oxy - Monitor for acute neurologic changes - Nicotine patch HEENT: Routine wound care, patient may shower and shampoo 05/17 if wound remains intact - Continue vit C for wound healing Cardiovascular: Monitor BP and HR - Continue home metop and spironolactone - Continue home atorv Respiratory: IS, cough/deep breathe - COPD: continue duo-nebs GI: Diet: Reg; anti-emetics, bowel regimen / Renal: 24-hour I/O goal: euvolemic ID/HO: - Cultures taken of fluid drained from wound, NGTD, will continue to monitor - AF Endocrine: No active issues Musculoskeletal / Skin: No active issues. Routine decubitus ulcer prevention. Ambulate, PT/ OT DVT prophylaxis: SCDs while in bed, ambulate Disposition: Plan is for watchful waiting for now, consideration of surgery for flap repair /replacement by Dr White if the wound breaks down again and dehisces. Plan to discharge home t omorrow. At discharge patient to continue to monitor surgical site and send updated photos o f wound during healing process. Marni Manning PA-C Neurological Surgery Feli Nguyen AGACNP - 05/15/2018 6:33 PM PDTFormatting of this note might be different from david carrera. NEUROLOGICAL SURGERY INPATIENT PROGRESS NOTE Hospital Day:1 Author: ELAINE Bee Attending Physician: Paramjit Huber MD Interval Hx: - Wound today appears much improved from admit photos after cleanup and revision by ENT - WBC WNL, AF, cx w/NGTD Physical Exam: Last Vitals: BP 133/66 (BP Location: Left upper arm, Patient Position: Sitting) | Pulse 100 | Temp 36. 7 C (98.1 F) | Resp 20 | Wt 50 kg (110 lb 3.7 oz) | SpO2 94% | BMI 22.26 kg/m | B SA 1.44 m O2 Delivery Device: None (room air) (05/15/18 1614) 24 Hour Vital Min/Max: Systolic (24hrs), Av , Min:95 , Max:135 Diastolic (24hrs), Av, Min:47, Max:73 Pulse Min: 85 Max: 100 Temp Min: 36.6 C (97.8 F) Max: 36.8 C (98.3 F) Resp Min: 16 Max: 20 SpO2 Min: 87 % Max: 97 % Intake/Output Summary (Last 24 hours) at 05/15/18 1833 Last data filed at 05/15/18 1631 Gross per 24 hour Intake 1226.25 ml Output 200 ml Net 1026.25 ml Physical Exam: Awake, alert and oriented to person, place, time, situation PERRL, gaze conjugate, EOMI, VFI, faces symmetric (w exception of skull defect), TML No apparent deficits with recall, awareness, reasoning/problem-solving Fluent and articulate without evidence of aphasia or dysarthria Manasa, equal strength and sensation to light touch intact BUE/BLE Surgical incision clean/dry/intact; no erythema or swelling noted, small amount of clear se wicho fluid drops collected along incision Shoulder shrug symmetrical, no pronator drift Labs: CBC with diff last 72 hours (or 3 results) - Refreshable Recent Labs 05/14/18 1353 05/15/18 0236 WBC 8.33 7.78 HB 12.1 12.0 HCT 37.0 35.6* PLT 325 309 NEUTROPERC 65.0 -- LYMPHPERC 17.2* -- MONOPERC 13.6* -- BASOPERC 0.6 -- EOSPERC 3.1* -- Chemistries: Last 72 Hours (or 3 results) - Refreshable Recent Labs 05/14/18 1353 05/15/18 0236 NA 136 138 K 4.2 4.1 CL 104 105 BICARB 27 25 BUN 10 15 EGFRAFRICAN >60 >60 CR 0.69 0.78 GLU 97 125* CA 8.4* 8.5* Current Medications: acetaminophen (TYLENOL) tablet 650 mg, 650 mg, oral, Q4H PRN artificial tears (dextran 70-hypromellose) (NATURE'S TEARS) 0.1-0.3 % ophthalmic drops 1 dr op, 1 drop, Both Eyes, Q2H PRN ascorbic acid (vitamin C) tablet 500 mg, 500 mg, oral, BID atorvastatin (LIPITOR) tablet 80 mg, 80 mg, oral, DAILY bisacodyl (DULCOLAX) suppository 10 mg, 10 mg, rectal, DAILY PRN ipratropium-albuterol (DUO-NEB) nebulizer solution 3 mL, 3 mL, inhalation, BID metoprolol succinate (TOPROL-XL) tablet 50 mg, 50 mg, oral, DAILY NaCl 0.9%-KCl 20 mEq/L IV infusion, , intravenous, CONTINUOUS nicotine (NICOTROL) 14 mg/24 hr 1 patch, 1 patch, transdermal, DAILY PRN ondansetron (ZOFRAN) tablet 8 mg, 8 mg, oral, Q12H PRN oxyCODONE (immediate release) (ROXICODONE) tablet 5 mg, 5 mg, oral, Q6H PRN polyethylene glycol (MIRALAX) packet 34 g, 34 g, oral, TID PRN prochlorperazine (COMPAZINE) injection 5-10 mg, 5-10 mg, intravenous, Q6H PRN prochlorperazine (COMPAZINE) tablet 5-10 mg, 5-10 mg, oral, Q6H PRN senna-docusate (SENOKOT S) 8.6-50 mg 1 tablet, 1 tablet, oral, BID spironolactone (ALDACTONE) tablet 25 mg, 25 mg, oral, DAILY IMAGIN05/14/2018, CT HEAD WITH CONTRAST HISTORY: R/O Post op N/Surg infection COMPARISON: 05/08/2018 TECHNIQUE: CT of the head with iodine based intravenous contrast. FINDINGS: BRAIN: Redemonstration of a right-sided synthetic graft pterional cranioplasty. There is an underlying 7 mm extra-axial collection, that likely communicates with a new 1.6 cm thick ri ght frontal extracranial subgaleal collection with gas locules, and mild enhancement of the margins. No significant surrounding inflammatory changes are present. 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 There is stable encephalomalacia involving the medial portions of t he bilateral frontal lobes, more extensive on the left. No acute intracranial hemorrhage, ma ss or acute infarction. Unchanged ventricular caliber without hydrocephalus.. SOFT TISSUES: Right frontal extra cranial subgaleal fluid collection, as above. SKULL AND SKULL BASE: No acute fractures or destructive lesions. Mastoids and middle ears a re unremarkable. FACE/ORBITS: Visualized portions are unremarkable. PARANASAL SINUSES: Visualized portions are unremarkable. IMPRESSION: New right frontal subgaleal fluid collection measuring 1.6 cm in thickness, with likely com munication with the right frontal extra-axial fluid through the cranioplasty. Margins of the fluid collection show mild enhancement, without significant surrounding inflammatory change s, favoring postoperative seroma, however infected fluid may have similar appearance. 05/15/2018, MRI BRAIN W/WO CONTRAST HISTORY: evaluate right frontal fluid collection. COMPARISON: CT head 05/14/2018 TECHNIQUE: Multiplanar multi-sequence MRI of the brain without and with gadolinium based in travenous contrast: GADOTERATE MEGLUMINE 0.5 MMOL/ML (376.9 MG/ML) INTRAVENOUS SOLUTION 10 m L FINDINGS: BRAIN: Redemonstration of right-sided synthetic graft pterional cranioplasty. On the outer side of the cranipolasty in the right temporal fossa fluid is a collection measuring up to 1 2 mm in thickness, decreased from prior, with scattered susceptibility artifact consistent w ith gas locules. Enhancement is present in the soft tissues bounding the right temporal quinn a collection. No homogeneous diffusion restriction on DWI. On the inner side of the craniop lasty, there is a 7 mm extra-axial T2 hyperdense extra-axial collection is unchanged in size with underlying minimal dural thickening and enhancement. No associated diffusion restricti on. FLAIR hyperintensity surrounding unchanged bilateral areas of encephalomalacia in the m edial frontal lobes, consistent with gliosis. Susceptibility artifact from suprasellar aneur ysm clips are also noted. No evidence of hemorrhage, mass, or acute infarction. The ventricl es are stable in size and morphology. SOFT TISSUES AND MARROW: Unremarkable. FACE AND ORBITS: Visualized portions are unremarkable. IMPRESSION: Status post right pterional cranioplasty with redemonstration of adjacent right temporal fo ssa and extra-axial T2 hyperintense fluid collections, mildly decreased in size compared to CT from one day prior, without diffusion restriction to suggestion to suggest abscess format ion, although early or atypical infection may still be considered in the appropriate clinica l setting. Minimal associated dural and soft tissue thickening and enhancement are favored t o be postoperative in etiology. ASSESSMENT: Cielo Bell is a 68 y.o. female with history of remote subarachnoid hemorrhage due to a ruptured A-Comm aneurysm. Her subarachnoid hemorrhage was complicated by posthemo rrhagic hydrocephalus, which required a ventriculoperitoneal shunt, and a left superficial n karli abscess that required drainage. The patient was lost to followup for many years and th en in 2015 presented with resorption of her bone flap and loose hardware. The patient unde rwent a synthetic custom cranioplasty at that time.The patient re-presented in November, with right sided wound dehiscence and epidural MSSA wound infection for which she underwe nt explant of right frontal VPS and right cranioplasty. She was discharged home with a PICC and received IV ceftriaxone for 6 weeks. She represented on 05/09/18 for right synthetic fron totemporal cranioplasty with rotational scalp flap per ENT and discharged home the following day. She represented on 05/14/18 with slowly enlarging right frontal fluid collection. The skin o verlying the fluid collection was erythematous and warmer than that overlying the contralate ral head, and CT scan showed a large extra-axial fluid collection, hyperdense to CSF. ENT ained the fluid collection, cleaned up the flap and revised/reinforced the wound, and the pl an at this point is to watch for a couple of days to see whether the wound integrity holds u p vs consideration of re-do wound revision that will likely need free flap and skin graft. PLAN: Neurological: - Continue acute care therapies - Pain control: prn tylenol, oxy - Monitor for acute neurologic changes - Nicotine patch HEENT: Routine wound care, patient may shower and shampoo 05/17 if wound remains intact - Continue vit C for wound healing Cardiovascular: Monitor BP and HR - Continue home metop and spironolactone - Continue home atorv Respiratory: IS, cough/deep breathe - COPD: continue duo-nebs GI: Diet: Reg; anti-emetics, bowel regimen / Renal: 24-hour I/O goal: euvolemic ID/HO: - Cultures taken of fluid drained from wound, NGTD, will continue to monitor - AF, WBC WNL Endocrine: No active issues Musculoskeletal / Skin: No active issues. Routine decubitus ulcer prevention. Ambulate, PT/ OT DVT prophylaxis: SCDs while in bed, ambulate Disposition: Pending clinical course; Plan is for watchful waiting for now, consideration o f surgery for flap repair/replacement by Dr White if the wound breaks down again and dehisces ELAINE Bee Neurological Surgery [facility] [address] [address] [address] Pager: [phone] ax, MD Ata - 05/15/2018 5:38 PM PDTClinic Date:05/15/2018 I saw this young lady today. She has been doing well. I noticed that she had a collection of fluid on her scalp. It drained, and the wound was closed. It does not appear to be inf ectious in nature, but we are waiting all the results, etc. On examining that scalp, she does have some fluid in there. I do not recall that there was any CSF leakage or any reason for her to have CSF there, but it is a possibility. The suture line looks good, and the rest of her scalp is very mobile. I went over the findings with Dr. Huber. We are going to just watch her over the next few days, see what the results show, and see if she settles down. If she is infected, then we w ill take out the implant and maybe put up a flap next time. If she continues to have issues , we may consider putting a flap up this time, but we will see how well she feels with that. Thank you very much. The majority of this visit was spent in counseling. I spent greater than 25 minutes. MD CHANDRIKA Hansen/NGUYEN /[id number] signed by Ata White MD at 05/18/2018 11:23 AM PDTdoc umented in this encounter Consult Notes Mali Serrano PharmD - 05/15/2018 4:29 AM PDTFormatting of this note might be different f rom the original. Pharmacy Services: Admission Medication Reconciliation Prior to Admission Medications: Prior to Admission Medications Prescriptions Last Dose Informant Patient Reported? Taking? acetaminophen 325 mg oral tablet No No Sig: Take 1-2 tablets by mouth every four hours as needed. Indications: Pain ascorbic acid (vitamin C) 500 mg oral tablet No No Sig: Take 1 tablet by mouth two times daily. aspirin EC 81 mg oral tablet,delayed release [...] Indications: constipation spironolactone 25 mg oral tablet Yes No Sig: Take 25 mg by mouth once daily. zinc sulfate 110 mg total salt (25 mg elemental) oral tablet No No Sig: Take 1 tablet by mouth once daily. The above list reflects the patient's prior to admission medication use and is complete and accurate to the best of my knowledge. Source of Medication Information: Patient's Discharge AVS 05/08/18 Reliability: Reliable All questions concerning medications, including OTC and herbal products, were addressed. For questions regarding this information please contact pharmacy, pager [phone] Mali Serrano PharmD, [facility] Clinical Pharmacist [facility] Ph: [phone], Pgr: [phone] Frankie Barber MD - 05/14/2018 9:32 PM PDTAssociated Order(s): IP CONSULT TO OTOLARYNGOLOGY HEAD AND NECK SURGERY CONSULT NOTE 05/14/2018 Attending: Dr. Bravo History of Present Illness: Cielo Bell [id number] is a 68 y.o. female being evaluated for concern for post-o perative wound infection. She has a hx of SAH s/p craniotomy c/b hydrocephalus who then went on to have a R cranioplasty in 2016 c/b epidural abscess and resorption now s/p revision sy nthetic cranioplasty 05/08/18 with NSG with a very large scalp rotational flap by Dr. White (E NT). She now presents with tense fullness and a fluid collection over the right scalp which she states began collecting a few days ago. She states that it had not been draining until yesterday when he began draining light red fluid from the focal area of prior to my arrival, the rotational flap. She denies fever, purulent drainage, altered mental status, new neuro logic symptoms. The neurosurgery resident had aspirated much of the fluid from the collecti on. ENT is consulted for assessment of this wound and with a request to close the draining site at the scalp flap. Review of Systems: See HPI for pertinent positives/negatives. Allergies: Gage tar; Betadine [povidone-iodine (with soap)]; Cipro [ciprofloxacin]; Codeine hcl; and S ulfa (sulfonamide antibiotics) Current Facility-Administered Medications Medication Dose Route Frequency Provider Last Rate Last Dose lidocaine-EPINEPHrine (XYLOCAINE WITH EPINEPHRINE) 1 %-1:100,000 injection 10 mL 10 mL infiltration ONCE Gladys Zepeda MD Current Outpatient Prescriptions Medication Sig acetaminophen 325 mg oral tablet Take 1-2 tablets by mouth every four hours as needed. Indications: Pain ascorbic acid (vitamin C) 500 mg oral tablet Take 1 tablet by mouth two times daily. [START ON 05/24/2018] aspirin EC 81 mg oral tablet,delayed release [...] 1 tablet by mouth onc e daily. Past Medical History: Diagnosis Date Abnormal LFTs (liver function tests) CAD in [place] artery s/p NSTEMI 12/27/2014; status post stent [...] Bladder suspension 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 Optometric Technologist shunt Tympanoplasty Right 1987 Lumpectomy of left breast 1978 Coronary stent placement 12/28/2014 status post stent placement in the mid LAD Removal of vp production shunt Cholecystectomy Social History Substance Use Topics Smoking status: Current Every Day Smoker Packs/day: 1.00 Years: 50.00 Types: Cigarettes Smokeless tobacco: Never Used Comment: Alcohol use No No relevant FH Examination: Last Vitals: BP 117/63 | Pulse 88 | Temp 36.5 C (97.7 F) | Resp 16 | Wt 50 kg (110 lb 3.7 oz) | SpO2 100% | BMI 22.26 kg/m | BSA 1.44 m 24 Hour Vital Min/Max: Systolic (24hrs), Av , Min:117 , Max:117 Diastolic (24hrs), Av, Min:63, Max:63 Pulse Min: 88 Max: 90 Temp Min: 36.5 C (97.7 F) Max: 36.6 C (97.8 F) Resp Min: 16 Max: 16 SpO2 Min: 97 % Max: 100 % General: NAD Face: no facial deformities Scalp: S/p Large rotational flap on the right scalp. Superior incision is well healed with sutures in place. Underlying the bulk of the flap is a very large diffuse fluid collection. This extends from the incision down to the maxillary cheek. There is slight overlying skin e rythema. No tenderness to palpation. With gentle pressure, copious clear-red fluid is expres sed from a central area of macerated skin at the right scalp. No purulence was encountered. Eyes: sclera anicteric, conjunctiva pink Ears: External ears normal, bilateral EAC clear Nose: Normal external appearance, no rhinorrhea Respiratory and Voice: breathing comfortably on RA Cardiovascular: skin is warm and well perfused Neurological: cranial nerves II, III, IV, , VII grossly intact, conversant, pleasant Procedure: Suture repair of scalp defect The skin overlying the site of fluid drainage of the right scalp was cleaned with Betadine and injected with 3 mL of 1% lidocaine with 1-100,000 epinephrine. Following this 2-0 nylon sutures were used to reapproximate the small scalp defect in a horizontal mattress fashion. 2 mattress stitches were placed perpendicular to each other to pull the edges of skin toge ther. Diagnostic Testing: CT Head: New right frontal subgaleal fluid collection measuring 1.6 cm in thickness, with l ikely communication with the right frontal extra-axial fluid through the cranioplasty. Sara ns of the fluid collection show mild enhancement, without significant surrounding inflammato ry changes, favoring postoperative seroma, however infected fluid may have similar appearanc e. Labs: Reviewed in EPIC, notable for WBC 8K Assessment: 68 y.o. female with a hx of SAH s/p craniotomy c/b hydrocephalus who then went on to have a R cranioplasty in 2016 c/b epidural abscess and resorption now s/p revision syn thetic cranioplasty 05/08/18 with NSG with a very large scalp rotational flap by Dr. White (EN T). She now presents with tense fullness and a fluid collection over the right scalp. The f luid collection is quite clear without evidence of purulence. The overlying skin erythema d oes not necessarily signify infection as this could be just the skin under tension. She als o does not have a white count or fever. I therefore do not think she has a infection of the scalp flap. 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 At the request of neurosurgery, I have closed the drain age site at the scalp to help tamponade the potential CSF leak. As the skin is very macerat ed at the site, the repair is very tenuous. Central to healing of this macerated skin is co ntrol of the fluid collection which has led to it. Recommendations: Be very careful with palpation of the scalp fluid collection to prevent dehiscence of the t enuous repair We defer to neurosurgery on need for antibiotics We are happy to help with further interventions as felt indicated by neurosurgery ENT will continue to follow in a peripheral role This patient was discussed with chief resident Isacc Wheeler MD who agrees with this plan Frankie Ortiz MD Resident Otolaryngology-Head & Neck Surgery Evans Bello MD,MPH - 4:08 PM PDTAssociated Order(s): IP CONSULT TO NEUROLOGICAL SURGERYFormatting of thi s note might be different from the original. NEUROSURGERY HISTORY AND PHYSICAL Author: Evans uQevedo MD,MPH Attending Physician: Machelle Gaines MD PCP: Mary Vazquez PA-C Reason for consult: Pseudomeningocele HPI: Cielo Bell is a 68 y.o. female with a history of remote subarachnoid hemo rrhage due to a ruptured A-Comm aneurysm. Her subarachnoid hemorrhage was complicated by po sthemorrhagic hydrocephalus, which required a ventriculoperitoneal shunt, and a left superfi cial neck abscess that required drainage. The patient was lost to followup for many years a nd then in 2016 presented with resorption of her bone flap and loose hardware. The patient underwent a synthetic custom cranioplasty at that time. The patient re-presented in November 2017, with right sided wound dehiscence and epidural MSSA wound infection for which she unde rwent explant of right frontal VPS and right cranioplasty. She was discharged home with a PI CC and received IV ceftriaxone for 6 weeks. She represented on 05/09 for right synthetic fron totemporal cranioplasty with rotational scalp flap per ENT. Today, she presents with slowly enlarging right frontal fluid collection. She reports that it began the day after surgery, and has been enlarging gradually ever since. She denies feve rs, chills, headache, nausea, and vomiting. There is no active leakage of fluid from the inc ision nor the small excoriation at the apex of the collection. The skin overlying the fluid collection is erythematous and warmer than that overlying the contralateral head. CT scan d emonstrates a large extra-axial fluid collection, hyperdense to CSF. PMH: Past Medical History: Diagnosis Date Abnormal LFTs (liver function tests) CAD in [place] artery s/p NSTEMI 12/27/2014; status post stent placement in the mid LAD Chronic pain COPD on oxygen at night Essential hypertension GERD (gastroesophageal reflux disease) Goiter Hemorrhagic stroke (HCC) 2007 aneurysm MRSA (methicillin resistant staph aureus) culture positive post cariotomy for SAH Otitis media recent abx preadmit PONV (postoperative nausea and vomiting) Subarachnoid hemorrhage due to ruptured aneurysm (HCC) 2007 Tobacco dependence PSH: Past Surgical History Procedure Date Partial thyroidectomy Hysterectomy Bladder suspension 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 Optometric Technologist shunt Tympanoplasty 1987 Lumpectomy of left breast 1979 Coronary stent placement 12/28/2014 status post stent placement in the mid LAD Removal of vp production shunt Cholecystectomy Social History: Social History Social History Marital [...] 2012. Family History: Family History Problem Relation Additional Family History Mother dementia Cancer Father brain Cancer Brother lung Medications: No current facility-administered medications for this encounter. Current Outpatient Prescriptions: acetaminophen 325 mg oral tablet, Take 1-2 tablets by renata every four hours as needed. Indications: Pain, Disp: , Rfl: ascorbic acid (vitamin C) 500 mg oral tablet, Take 1 tablet by mouth two times daily., Disp : 62 tablet, Rfl: 0 [START ON 05/24/2018] aspirin EC 81 mg oral tablet,delayed release (DR/EC), Take 1 tablet by mouth once daily. Do not restart aspirin until 2 weeks after surgery-05/24/18, Disp: , Rfl: atorvastatin 80 mg oral tablet, Take 80 mg by mouth once daily., Disp: , Rfl: ipratropium-albuterol 0.5 mg-3 mg(2.5 mg base)/3 mL inhalation solution for nebulization, I nhale 3 mL two times daily., Disp: , Rfl: lisinopril 5 mg oral tablet, Take 5 mg by mouth once daily., Disp: , Rfl: metoprolol succinate 50 mg oral tablet extended release 24 hr, Take 50 mg by mouth once chauncey ly., Disp: , Rfl: nitroglycerin 0.4 mg sublingual tablet, sublingual, Place [...] for no BM for 2 days). Indications: constipation, Disp: , Rfl: spironolactone 25 mg oral tablet, Take 25 mg by mouth once daily., Disp: , Rfl: zinc sulfate 110 mg total salt (25 mg elemental) oral tablet, Take 1 tablet by mouth once d aily., Disp: 30 tablet, Rfl: 0 Allergies: Allergies Allergen Reactions Gage Tar Hives Betadine [Povidone-Iodine (With Soap)] Rash Cipro [Ciprofloxacin] Nausea and Vomiting Codeine Hcl Nausea and Vomiting Sulfa (Sulfonamide Antibiotics) Erythema Exam: BP 117/63 | Pulse 88 | Temp 36.5 C (97.7 F) | Resp 16 | Wt 50 kg (110 lb 3.7 oz) | SpO2 100% | BMI 22.26 kg/m | BSA 1.44 m Awake, alert, oriented to self, time, place, situation Following commands briskly Speech fluent PERRL, EOMI Visual oreilly full to confrontation bilaterally Facial sensation intact Face symmetric Shoulder shrug equal bilaterally Tongue midline No pronator drift RUE: 5/5 D/B/T/HG LUE: 5/ D/B/T/HG RLE: 5 HF/KE/DF/PF LLE: 5 HF/KE/DF/PF Sensation grossly intact to light touch throughout Incision clean/dry/intact. Mild erythema over ballotable right frontal fluid collection. Sm all excoriation at apex of collection. No active or expressable drainage. Skin overlying col lection warmer than contralateral head. No tenderness to palpation. Labs: Chemistries: Recent Labs 05/08/18 1200 05/09/18 0005 05/14/18 1353 NA 137 137 136 K 3.9 4.0 4.2 CL 111* 109* 104 BICARB 20* 21 27 BUN 19 13 10 CR 0.79 0.68 0.69 CA 7.4* 7.8* 8.4* MG -- 1.7 -- PO4 4.4 2.7 -- CBC with diff: Recent Labs 05/08/18 0742 05/09/18 0006 05/10/18 0546 05/14/18 1353 WBC 7.98 < > 14.69* 15.64* 8.33 HB 14.2 < > 11.7* 11.1* 12.1 HCT 42.9 < > 35.5* 33.7* 37.0 PLT 258 < > 221 207 325 NEUTROPERC 60.9 -- -- -- 65.0 LYMPHPERC 26.4 -- -- -- 17.2* MONOPERC 9.0 -- -- -- 13.6* BASOPERC 0.8 -- -- -- 0.6 EOSPERC 2.6 -- -- -- 3.1* < > = values in this interval not displayed. Coags: Lab Results Component Value Date APTT 31.5 05/08/2018 FIBRINOGEN 402 05/08/2018 CBG's: Recent Labs 05/08/18 1200 05/09/18 0005 05/14/18 1353 GLU 120* 105* 97 Imaging: Assessment and Plan: Cielo Bell is a 68 y.o. female who presents with enlarging right frontal fluid collection POD 5 from right frontotemporal cranioplasty. 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 No present leakage. She is neurologically intact. Will have to rule out infection. - Admit to 10K, Dr Huber - ENT consult - ESR, CRP - Pre-op labs: CBC, BMP, coags (incl INR), type and screen - NPO midnight - MRI wwo tonight - Plan to tap collection This case has been discussed with Dr. Huber, attending neurological surgeon on-call, who is in agreement with the assessment and plan as defined. Please contact the Neurosurgery resident on-call pager [phone] with questions or concerns. Evans Quevedo MD MPH Neurological Surgery documented in this [facility] ED Notes Melanie Pierce RN - 05/15/2018 5:37 AM PDTI have relinquished care of this patient.Elect ronically signed by Melanie Pierce RN at 05/15/2018 5:37 AM Melanie Sanchez RN - 05/15 5:07 AM PDTRN Admission/Transfer Note Reason for admission: Pseudomeningocele Pertinent physical findings (Focused assessment, Pain/discomfort, Neuro, Cards/tele and Resp assessment): Neuro: AOx4, right side of head drained at bedside by , continent and independent Per NeuroSurg Note: Extensive neuro hx: remote subarachnoid hemorrhage with a shunt placed. In November underwen t cranioplasty. Today, she presents with slowly enlarging right frontal fluid collection. She reports that it began the day after surgery, and has been enlarging gradually ever since. CT scan showed large amount of fluid collection drained at bedside, sample sent to lab. Resp: 2L NC baseline at night GI/: NPO since midnight until MRI results Skin: sutures to right side of head-clean, dry and intact with no drainage Musculo: WNL IVF @75 Patient concern (Primary reason for coming to the ED): swelling to right side of head Psych/social assessment & interventions: No pertinent issues noted. No interventions needed . Safety risks: no safety risks noted Isolation status None Legal status: Voluntary Medical/psychosocial stability: Moderately Stable Transition concerns as related to stability: none Alarm parameter changes: none Care R/T comfort, hygiene, education (i.e., activity, environment, toileting, skin, ADLs, e tc.): NPO since midnight, up SBA/independent in room, sutures to right side of head clean dr y and intact Orders to follow up on: neuro checks, per ENT Be very careful with palpation of the scalp f luid collection to prevent dehiscence of the tenuous repair Anticipated/pending procedures or disposition: MRI results, am labs f/u, ENT and neuro f/u Belongings check: Completed; Unsecured Report called to: Ashley HUERTAS in 10K unit. report called? no Education provided to the patient/family: plan of care Melanie Sanchez RN - 05/15/2018 2:19 AM PDTPt back form MRI, back to bed, bed locked and low, call light with in reach Jacob Sanchez RN - 05/15/2018 1:15 AM PDTPt off floor to MRI Melanie Sanchez RN - 05/14/2018 11:42 PM PDTI have assumed care of this patient. Lashonda López RN - 05/14/2018 10:55 PM PDTRN Admission/Transfer Note Reason for admission: Pseudomeningocele Pertinent physical findings (Focused assessment, Pain/discomfort, Neuro, Cards/tele and Resp assessment): AOx4, continent and independent VSS Per NeuroSurg Note: history of remote subarachnoid hemorrhage due to a ruptured A-Comm aneurysm. Her subarach noid hemorrhage was complicated by posthemorrhagic hydrocephalus, which required a ventricul operitoneal shunt, and a left superficial neck abscess that required drainage. The patient was lost to followup for many years and then in 2015 presented with resorption of her bone flap and loose hardware. The patient underwent a synthetic custom [facility]ani[facility].The patient re-presented in November 2017, with right sided wound dehiscence and epidural MSSA wound infection for which she underwent explant of right frontal VPS and right craniop lasty. She was discharged home with a PICC and received IV ceftriaxone for 6 weeks. She repr esented on 05/09 for right synthetic frontotemporal cranioplasty with rotational scalp flap p er ENT. Today, she presents with slowly enlarging right frontal fluid collection. She reports that it began the day after surgery, and has been enlarging gradually ever since. She denies feve rs, chills, headache, nausea, and vomiting. There is no active leakage of fluid from the inc ision nor the small excoriation at the apex of the collection. The skin overlying the fluid collection is erythematous and warmer than that overlying the contralateral head. CT scan d emonstrates a large extra-axial fluid collection, hyperdense to CSF. Fluid collection drained at bedside, sample sent to lab. 2L NC baseline Pertinent PMHx (See also Code Status, MAR, Results, Allergies, Medication reconciliation & Medical History): COPD on 2L NC baseline, HTN, cad Restrictions: NPO at 0000 Psych/social assessment & interventions: No pertinent issues noted. No interventions needed . Safety risks (Identify patient triggers/safety concerns & effective interventions): no safe ty risks noted Isolation status: None Legal status: Voluntary Medical/psychosocial stability: Moderately Stable Transport/transitions concerns as related to stability: None Orders to follow up on: MRI Belongings check: Not Completed; Unsecured; sent with patient MD report called? yes Education provided to the patient/family: pt and family updated on plan of care Lashonda Matias RN - 05/14 10:54 PM PDTReport given to BETHANY Bean obsElectronically signed by Lashonda Quiros RN at 10:54 PM Lashonda Matias RN - 05/14/2018 10:22 PM PDTPt provided with turkey sandw ich and water - ok to eat now, NPO at midnight. Pt updated. Lashonda Matias RN - 05/14/2018 9:51 PM PDTNeuro at bedsid e preforming drainage of head Lashonda Matias RN - 05/14/2018 8:47 PM PDTNEURO at bedside Lashonda Matias RN - 05/14/2018 7:52 PM PDTPt resting in bed, only complaint is that she would like to eat and drink, pt reminded that she has not b een cleared to eat at this time. Bed in low and locked position, call light within reach. El ectronically signed by Lashonda Quiros RN at 05/14/2018 7:53 PM PDTMachelle Gaines MD - 019 3:58 PM PDT ED Shared Provider Note, co-authored by MG Jesus and BERNADETTE COE MD: ROXANE Bell is a 68 y.o. Woman with a pmh of ischemic cardiomyopathy, hyper tension, GERD, subarachnoid hemorrhage complicated by seen post craniectomy and clipping com plicated by post hemorrhagic hydrocephalus seen post right VPS placement and cranial defect. She was discharged on 05/10/18 from the neurosurgery service after a combined cranioplasty with Dr. Huber from neurosurgery and Dr. White from plastic surgery She states that she started having swelling the same night that she was discharged that has been getting progressively greater. She also has noticed redness spreading to her face. N o discharge from the wound. Not significantly tender. Subjective fevers. No nausea or vom iting. 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 Continuous tobacco abuse Coronary arteriosclerosis in [place] artery 03/06/2015 History of non-ST elevation myocardial [...] ruptured aneurysm (HCC) 2007 Goiter CAD in [place] artery s/p NSTEMI 12/27/2014; status post stent placement in the mid LAD Abnormal LFTs (liver function tests) MRSA (methicillin resistant staph aureus) culture positive post cariotomy for SAH Hemorrhagic stroke (HCC) 2007 aneurysm PONV (postoperative nausea and vomiting) Past Surgical History Procedure Date Partial thyroidectomy Hysterectomy Bladder suspension 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 Optometric Technologist shunt Tympanoplasty 1987 Lumpectomy of left breast 1979 Coronary stent placement 12/28/2014 status post stent placement in the mid LAD Removal of vp production shunt Cholecystectomy Medications Prior to Admission Medications Prescriptions Last Dose Informant Patient Reported? Taking? acetaminophen 325 mg oral tablet No No Sig: Take 1-2 tablets by mouth every four hours as needed. Indications: Pain ascorbic acid (vitamin C) 500 mg oral tablet No No Sig: Take 1 tablet by mouth two times daily. aspirin EC 81 mg oral tablet,delayed release [...] Indications: constipation spironolactone 25 mg oral tablet Yes No Sig: Take 25 mg by mouth once daily. zinc sulfate 110 mg total salt (25 mg elemental) oral tablet No No Sig: Take 1 tablet by mouth once daily. Facility-Administered Medications: None Allergies Allergen Reactions Gage Tar Hives Betadine [Povidone-Iodine (With Soap)] Rash Cipro [Ciprofloxacin] Nausea and Vomiting Codeine Hcl Nausea and Vomiting Sulfa (Sulfonamide Antibiotics) Erythema Social History reports that she has been using cigarettes. She has a 50 pack-year smoking history. She reports that she does not currently drink alcohol or use drugs. Family History Problem Relation Additional Family History Mother dementia Cancer Father brain Cancer Brother lung Review of Systems Complete ROS performed and negative except as noted in HPI. ED Triage Vitals BP Temp Heart Rate Pulse - Plethysmograph Resp SpO2 05/14/18 1345 05/14/18 1345 05/14/18 1345 05/14/18 2150 05/14/18 1345 05/14/18 1345 117/63 36.6 C 90 83 pulses/min 16 97 % Physical Exam Constitutional: She is oriented to person, place, and time. She appears well-developed. She is cooperative. No distress. HENT: Head: Normocephalic and atraumatic. Mouth/Throat: Oropharynx is clear and moist and mucous membranes are normal. Large swelling extending from the surgical incision with overlying erythema that extends do wn the entire right side of her face. Mild erythema. Nontender to palpation. No fluid dis charge. Please see image below for greater detail. Eyes: Pupils are equal, round, and reactive to light. Conjunctivae and EOM are normal. Neck: Phonation normal. Neck supple. Cardiovascular: Regular rhythm, S1 normal, S2 normal, normal heart sounds and intact distal pulses. Exam reveals no gallop and no friction rub. No murmur heard. Pulmonary/Chest: Breath sounds normal. No respiratory distress. Abdominal: Soft. Normal appearance and bowel sounds are normal. There is no tenderness. The re is no rigidity, no rebound and no guarding. Neurological: She is alert and oriented to person, place, and time. Skin: Skin is warm, dry and intact. No rash noted. Psychiatric: She has a normal mood and affect. Nursing note and vitals reviewed. ED DATA Lab Results Results for orders placed or performed during the hospital encounter of 05/14/18 COMPLETE METABOLIC SET (NA,K,CL,CO2,BUN,CREAT,GLUC,CA,AST,ALT,BILI TOTAL,ALK PHOS,ALB,PROT TOTAL) Result Value Ref Range GLUCOSE, PLASMA (LAB) 97 70 - 99 mg/dL BUN, PLASMA (LAB) 10 6 - 20 mg/dL CREATININE PLASMA (LAB) 0.69 0.60 - 1.10 mg/dL EGFR - TOGOLESE >60 >60 mL/min EGFR NON -TOGOLESE >60 >60 mL/min SODIUM, PLASMA (LAB) 136 136 - 145 mmol/L POTASSIUM, PLASMA (LAB) 4.2 3.4 - 5.0 mmol/L CHLORIDE, PLASMA (LAB) 104 97 - 108 mmol/L TOTAL CO2, PLASMA (LAB) 27 21 - 32 mmol/L CALCIUM, PLASMA (LAB) 8.4 (L) 8.6 - 10.2 mg/dL CALCIUM(ALB CORRECTED) 9.1 8.6 - 10.2 mg/dL BILIRUBIN TOTAL 0.4 0.3 - 1.2 mg/dL TOTAL PROTEIN, PLASMA (LAB) 7.2 6.4 - 8.2 g/dL ALBUMIN, PLASMA (LAB) 3.1 (L) 3.5 - 4.7 g/dL ALK PHOS 95 53 - 141 U/L AST(SGOT) 13 <=41 U/L ALT (SGPT) 22 <=60 U/L ANION GAP 5 4 - 11 mmol/L ANION GAP(ALB CORRECTED) 7 4 - 11 mmol/L POTASSIUM CMNT No Hemo BILI T CMNT No Hemo AST CMNT No Hemo C-REACTIVE PROTEIN Result Value Ref Range C-REACTIVE PROTEIN 23.9 (H) <10.0 mg/L SEDIMENTATION RATE Result Value Ref Range SEDIMENTATION RATE 45 (H) 0 - 30 mm/hr GRAM SMEAR ONLY, STAT Result Value Ref Range GRAM STAIN RESULT No organisms seen No organisms seen SMEAR PREPARATION Cytospin SOURCE BODY SITE Abscess - Scalp C-REACTIVE PROTEIN Result Value Ref Range C-REACTIVE PROTEIN 23.5 (H) <10.0 mg/L BASIC METABOLIC SET (NA, K, CL, TCO2, BUN, CR, GLU, CA) Result Value Ref Range GLUCOSE, PLASMA (LAB) 125 (H) 70 - 99 mg/dL BUN, PLASMA (LAB) 15 6 - 20 mg/dL CREATININE PLASMA (LAB) 0.78 0.60 - 1.10 mg/dL EGFR - TOGOLESE >60 >60 mL/min EGFR NON -TOGOLESE >60 >60 mL/min SODIUM, PLASMA (LAB) 138 136 - 145 mmol/L POTASSIUM, PLASMA (LAB) 4.1 3.4 - 5.0 mmol/L CHLORIDE, PLASMA (LAB) 105 97 - 108 mmol/L TOTAL CO2, PLASMA (LAB) 25 21 - 32 mmol/L CALCIUM, PLASMA (LAB) 8.5 (L) 8.6 - 10.2 mg/dL ANION GAP 8 4 - 11 mmol/L POTASSIUM CMNT Sl Hemo INR Result Value Ref Range INR 1.08 0.90 - 1.20 INR APTT (ACT. PART. THROMBO TIME) Result Value Ref Range APTT 28.4 26.0 - 36.0 seconds BG-LAC,POC ISTAT Result Value Ref Range TOTAL CO2 GIA, POC 27 23 - 29 mmol/L PH VENOUS, POC 7.37 7.35 - 7.45 PCO2 VENOUS, POC 44 35 - 50 mmHg HCO3 VENOUS, POC 25 22 - 28 mmol/L PO2 VENOUS, POC <50 30 - 55 mmHg O2 SAT VENOUS, POC 57 % LACTATE VENOUS, POC 0.8 0.5 - 2.0 mmol/L PAT TEMP VENOUS,POC 36.6 C BASE EXCESS GIA, POC 0.0 mmol/L CBC AND AUTO DIFF Result Value Ref Range WHITE CELL COUNT 8.33 3.50 - 10.80 K/cu mm RED CELL COUNT 3.96 (L) 4.00 - 5.20 M/cu mm HEMOGLOBIN 12.1 12.0 - 16.0 g/dL HEMATOCRIT 37.0 36.0 - 46.0 % MCV 93.4 80.0 - 100.0 fL MCHC 32.7 32.0 - 36.0 g/dL RDW SD 45.1 35.1 - 46.3 fL PLATELET COUNT 325 150 - 400 K/cu mm MPV 9.8 9.7 - 12.3 fL NRBC% 0.0 0.0 - 0.3 % NRBC# 0.00 0.00 - 0.02 K/cu mm NEUTROPHIL % 65.0 50.0 - 70.0 % LYMPHOCYTE % 17.2 (L) 18.0 - 42.0 % MONOCYTE % 13.6 (H) 3.5 - 9.0 % EOS % 3.1 (H) 1.0 - 3.0 % BASO % 0.6 0.0 - 2.0 % IG% 0.5 0.0 - 1.0 % NEUTROPHIL # 5.42 1.80 - 7.70 K/cu mm LYMPHOCYTE # 1.43 1.00 - 4.80 K/cu mm MONOCYTE # 1.13 (H) 0.10 - 0.90 K/cu mm EOS # 0.26 0.00 - 0.50 K/cu mm BASO # 0.05 0.00 - 0.10 K/cu mm IG# 0.04 0.00 - 0.10 K/cu mm CBC (HEMOGRAM) ONLY Result Value Ref Range WHITE CELL COUNT 7.78 3.50 - 10.80 K/cu mm RED CELL COUNT 3.88 (L) 4.00 - 5.20 M/cu mm HEMOGLOBIN 12.0 12.0 - 16.0 g/dL HEMATOCRIT 35.6 (L) 36.0 - 46.0 % MCV 91.8 80.0 - 100.0 fL MCHC 33.7 32.0 - 36.0 g/dL RDW SD 45.0 35.1 - 46.3 fL PLATELET COUNT 309 150 - 400 K/cu mm MPV 9.6 (L) 9.7 - 12.3 fL NRBC% 0.0 0.0 - 0.3 % NRBC# 0.00 0.00 - 0.02 K/cu mm [employer] y.o. 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 She was discharged on 05/10/18 f rom the neurosurgery service after a combined cranioplasty with Dr. Huber from neurosurgery and Dr. White from plastic surgery She states that she started having swelling the same night that she was discharged that has been getting progressively greater. She also has noticed r edness spreading to her face. Our primary and secondary assessment revealed an awake, alert patient who was hemodynamical ly stable and afebrile. The vitals and physical exam were notable for the following: Vitals unremarkable. Examination notable for mild erythema and significant swelling extending fro m the surgical incision down the right side of her skull and face.. Our primary concern was the etiology of the patient's swelling and erythema. Given the hailey ent's history and exam, initial differential diagnosis includes but is not limited to fluid collection, abscess, cellulitis , meningitis, brain abscess. We will obtain labs, and imaging and neurosurgical consultation ED COURSE - awake, alert, no distress Labs: See below Imaging: HISTORY: R/O Post op N/Surg infection COMPARISON: 05/08/2018 TECHNIQUE: CT of the head with iodine based intravenous contrast. FINDINGS: BRAIN: Redemonstration of a right-sided synthetic graft pterional cranioplasty. There is an underlying 7 mm extra-axial collection, that likely communicates with a new 1.6 cm thick ri ght frontal extracranial subgaleal collection with gas locules, and mild enhancement of the margins. No significant surrounding inflammatory changes are present. 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 There is stable encephalomalacia involving the medial portions of the bilateral frontal lob es, more extensive on the left. No acute intracranial hemorrhage, mass or acute infarction. Unchanged ventricular caliber w ithout hydrocephalus.. SOFT TISSUES: Right frontal extra cranial subgaleal fluid collection, as above. SKULL AND SKULL BASE: No acute fractures or destructive lesions. Mastoids and middle ears a re unremarkable. FACE/ORBITS: Visualized portions are unremarkable. PARANASAL SINUSES: Visualized portions are unremarkable. IMPRESSION: New right frontal subgaleal fluid collection measuring 1.6 cm in thickness, with likely com munication with the right frontal extra-axial fluid through the cranioplasty. Margins of the fluid collection show mild enhancement, without significant surrounding inflammatory change s, favoring postoperative seroma, however infected fluid may have similar appearance. Consults: Neurosurgery MDM (continued) Cielo Bell is a 68 y.o. female presenting with post of issue . A review of some of the patient s prior medical records was performed using chart review and Care Everywhere. Patient's history and examination is most concerning for a fluid collection with a possible abscess or developing cellulitis. She has no leukocytosis and is afebrile, however her ESR and CRP are elevated. Less suspicious for meningitis or brain abscess. Laboratory, EKG, and imaging results including those below were reviewed and interpreted, a nd notable for the following: ED Course as of May 15 0045 Sun May 14, 2018 1611 Labs of note:No leukocytosis, no anemia, normal platelets. Normal renal function and electrolytes. Normal liver function tests. Lactate 0.8. [JL] 1908 CT head IMPRESSION: New right frontal subgaleal fluid collection measuring 1.6 cm in thickness, with likely com munication with the right frontal extra-axial fluid through the cranioplasty. Margins of the fluid collection show mild enhancement, without significant surrounding inflammatory change s, favoring postoperative seroma, however infected fluid may have similar appearance. [JL] ED Course User Index [JL] Bernadette Coe MD The patient received the following in the emergency department (including medications, inte rventions, consultations, and reassessments): The patient was discussed with neurosurgery. Who have kindly accepted her admission. They would like us to hold off on antibiotics at this time. ENT was also consulted and will kindly review the patient. The patient is currently boarding with neurosurgery and was signed out to the oncoming team in this status. ED Medication Administration from 05/14/2018 1331 to 05/15/2018 0045 Date/Time Order Dose Route Action 05/14/2018 1615 iohexol (OMNIPAQUE) 350 mg iodine/mL injection 100 mL 100 mL intravenous I V Push Admit Requested: May 14, 2018 7:42 PM IMPRESSION: M95.2 Skull defect PLAN, DISPOSITION AND FOLLOW-UP: Admit to neurosurgery 5:36 PM, MACHELLE GAINES MD, Faculty Note: I performed a history and physical examination on this patient and directly supervised the medical decision making and care. The resident and I co-wrote the ED Provider Note using the [employer] share function. I agree with the documentation findings and plan of care. iVerna verdugo RN - 3:[address] at this time.Electronically signed by Verna Carlisle RN at 2018 3:35 PM Ata Lopes RN - 05/14/2018 1:49 PM PDTPt presents to the ED with c/ cof pst craini surg site inf. noted redness and swelling to rt face extending to jaw with draina ge from site documented in this encounter Miscellaneous Notes Handoff - Jemima Holloway RN - 05/17/2018 5:25 AM PDTNursing Handoff Patient Daily Goal: Sleep (05/15/18 4368) Patient Specific Preferences: "Likes the room warm" (05/15/18 6108) [facility] IP NURSE HANDOFF: Nes[facility]itt hospital course events: 05/14 Rt frontal head fluid collection Hx: Reabsorption of bone flap and loose hardware, cranioplasty, epidural wound infection (e xplant of VPS), home antibiotics, VPS, SAH, hydrocephalus, Lt neck abscess, loose hardware, COPD, oxygen at night (not always per pt report), tobacco 05/09 cranioplasty and rotational scalp flap COMFORT/ANXIETY/BEHAVIOR Patient/Family Target: Cielo's pain will be well managed to allow for 4-6 hours of sleep overnight. Progress to Target: Improving As evidenced by: Cielo denied pain all this shift. Observed sleeping 6-8 hours between cares. NURSING ASSESSMENT & RECOMMENDATIONS FORWARD Nursing Assessment of Patient Stability Risk: Moderately stable Recommendations Forward: - Pt to discharge to home tomorrow 3/27-per previous shift report. - New onset (since admit per pt) low back (coccyx) pain. NSU PA aware.Denied pain currentl y. - Monitor for swelling and drainage on rt head incision - Pt may be up ad cadence in room and hallways - Monitor oxygen sats at night. Pt often on oxygen at night at home-per previous report - Monitor SBP-has been low. andoff - Lata White RN - 05/16/2018 4:35 PM PDTNursing Handoff Patient Daily Goal: Sleep (05/15/18 0735) Patient Specific Preferences: "Likes the room warm" (05/15/18 4383) [facility] IP NURSE HANDOFF: [facility] hospital course events: 05/14 Rt frontal head fluid collection Hx: Reabsorption of bone flap and loose hardware, cranioplasty, epidural wound infection (e xplant of VPS), home antibiotics, VPS, SAH, hydrocephalus, Lt neck abscess, loose hardware, COPD, oxygen at night (not always per pt report), tobacco 05/09 cranioplasty and rotational scalp flap COMFORT/ANXIETY/BEHAVIOR Patient/Family Target: Cielo will be able to rest comfortably this shift. Progress to Target: Improving As evidenced by: Cielo denied pain all this shift and resting comfortably. RESTORATIVE MEASURES/SELF-MANAGEMENT Patient/Family Target: Cielo will increase activity OOB this shift. Progress to Target: Improving As evidenced by: Cielo has ambulated in room/halls this shift. NURSING ASSESSMENT & RECOMMENDATIONS FORWARD Nursing Assessment of Patient Stability Risk: Moderately stable Recommendations Forward: - Pt to discharge to home tomorrow 05/17-per previous shift report. - New onset (since admit per pt) low back (coccyx) pain. NSU PA aware.Denied pain currentl y. - Monitor for swelling and drainage Rt head around incision - Monitor for headaches - Pt may be up ad cadence in room and hallways - Monitor oxygen sats at night. Pt often on oxygen at night at home-per previous report - Monitor SBP-has been low. andoff - Kurtis Rogel i, RN - 05/16/2018 1:28 PM PDTNursing Handoff [facility] IP NURSE HANDOFF: [facility] hospital course events: Admit: 05/14 Rt frontal head fluid colle ction Hx: Reabsorption of bone flap and loose hardware, cranioplasty, epidural wound infection (e xplant of VPS), home antibiotics, VPS, SAH, hydrocephalus, Lt neck abscess, loose hardware, COPD, oxygen at night (not always per pt report), tobacco 05/09 cranioplasty and rotational scalp flap NURSING ASSESSMENT & RECOMMENDATIONS FORWARD Nursing Assessment of Patient Stability Risk: Moderately stable Recommendations Forward: - Pt to discharge to home tomorrow 05/17 - New onset (since admit per pt) low back (coccyx) pain. NSU PA aware. - Monitor for swelling and drainage Rt head around incision - Monitor for headaches - Pt may be up ad cadence in room and hallways - Monitor oxygen sats at night. Pt often on oxygen at night at home - Monitor SBP andoff - Rinana Zarco RN - 05/16/2018 6:15 AM PDTNursing Handoff Patient Daily Goal: Sleep (05/15/18 7386) Patient Specific Preferences: "Likes the room warm" (05/15/18 9485) [facility] IP NURSE HANDOFF: [facility]es[facility]itt hospital course events: Admit: 05/14 Rt frontal head fluid colle ction Hx: Reabsorption of bone flap and loose hardware, cranioplasty, epidural wound infection (e xplant of VPS), home antibiotics, VPS, SAH, hydrocephalus, Lt neck abscess, loose hardware, COPD, oxygen at night (not always per pt report), tobacco 05/09 cranioplasty and rotational scalp flap HYGIENE/INFECTION Patient/Family Target: Cielo will show no sxs of drainage during this shift. As evidenced by: Cielo's incisions remain intact and show no sxs of drainage. RESTORATIVE MEASURES/SELF-MANAGEMENT Patient/Family Target: Cielo will be able to sleep during this shift. Progress to Target: Improving As evidenced by: Cielo voices being able to get rest during this shift. NURSING ASSESSMENT & RECOMMENDATIONS FORWARD Nursing Assessment of Patient Stability Risk: Moderately stable Recommendations Forward: Monitor for swelling and drainage Rt head around incision - Monitor for headaches and drainage - Pt may be up ad cadence in room and hallways - Monitor oxygen sats at night. Normal on 2 L O2 at night. Barriers to discharge: Pending, possible DC tomorrow andoff - Nataliya Reilly R N - 05/15/2018 7:02 PM PDTNursing Handoff Patient Daily Goal: "To figure out the plan" (05/15/18 3320) Patient Specific Preferences: "Likes the room warm" (05/15/18 9160) [facility] IP NURSE HANDOFF: [facility]es[facility]itt hospital course events: Admit: 05/14 Rt frontal head fluid colle ction Hx: Reabsorption of bone flap and loose hardware, cranioplasty, epidural wound infection (e xplant of VPS), home antibiotics, VPS, SAH, hydrocephalus, Lt neck abscess, loose hardware, COPD, oxygen at night (not always per pt report), tobacco 05/09 cranioplasty and rotational scalp flap NURSING ASSESSMENT & RECOMMENDATIONS FORWARD Nursing Assessment of Patient Stability Risk: Moderately stable Recommendations Forward: Monitor for swelling and drainage Rt head around incision - Monitor for headaches and drainage - Pt may be up ad cadence in room and hallways - Monitor oxygen sats at night. Pt often on oxygen at night at home D Teaching Notes - Shabana Gaines MD - 05/15/2018 5:39 PM PDTPlease see my shared note andoff - Vida Rogel RN - 05/15/2018 3:03 PM PDTNursing Handoff [facility] IP NURSE HANDOFF: [facility] hospital course events: Admit: 05/14 Rt frontal head fluid colle ction Hx: Reabsorption of bone flap and loose hardware, cranioplasty, epidural wound infection (e xplant of VPS), home antibiotics, VPS, SAH, hydrocephalus, Lt neck abscess, loose hardware, COPD, oxygen at night (not always per pt report), tobacco 05/09 cranioplasty and rotational scalp flap NURSING ASSESSMENT & RECOMMENDATIONS FORWARD Nursing Assessment of Patient Stability Risk: Moderately stable Recommendations Forward: - Monitor for swelling and drainage Rt head around incision - Monitor for headaches - Pt may be up ad cadence in room and hallways - Monitor oxygen sats at night. Pt often on oxygen at night at home - Monitor SBP lan of Care - Bari Denny RCP - 05/15/2018 8:29 AM PDTFormatting of this note might be different from the orig inal. Problem: RT Goals & Interventions Goal: Evaluation Outcome: Goal partially met History and Assessment Pulmonary problems: Hx COPD. Smoking history: History Smoking Status Current Every Day Smoker Packs/day: 1.00 Years: 50.00 Types: Cigarettes Smokeless Tobacco Never Used Comment: Heart rate: 84 Respiratory rate: 16 Temperature: Temp: 36.7 C (98.1 F) Breathsounds:Throughout All [place]: clear;diminished Cough and sputum production:Cough Type: none Respiratory Acuity and Protocol Plan A respiratory evaluation has been completed. Based on this assessment Evaluated for treatme nt under home maintenance therapy. documented in this en counter Plan of Treatment Not on filedocumented as of this encounter Procedures + +--------+ + + + | Procedure Name | Priori | Date/Time | Associated Diagnosis | Comments | | | ty | | | | + +--------+ + + + | CBC (HEMOGRAM) ONLY | Urgent | 05/15/2018 | | Results for this | | | | 2:36 AM | | procedure are in the | | | | PDT | | results section. | + +--------+ + + + | INR | Urgent | 05/15/2018 | | Results for this | | | | 2:36 AM | | procedure are in the | | | | PDT | | results section. | + +--------+ + + + | BASIC METABOLIC SET | Urgent | 05/15/2018 | | Results for this | | (NA, K, CL, TCO2, | | 2:36 AM | | procedure are in the | | BUN, CR, GLU, CA) | | PDT | | results section. | + +--------+ + + + | C-REACTIVE PROTEIN | Urgent | 05/15/2018 | | Results for this | | | | 2:36 AM | | procedure are in the | | | | PDT | | results section. | + +--------+ + + + | CBC ONLY | Urgent | 05/15/2018 | | Results for this | | | | 2:36 AM | | procedure are in the | | | | PDT | | results section. | + +--------+ + + + | APTT (ACT. PART. | Urgent | 05/15/2018 | | Results for this | | THROMBO TIME) | | 2:36 AM | | procedure are in the | | | | PDT | | results section. | + +--------+ + + + | MRI BRAIN WWO | Urgent | 05/15/2018 | | Results for this | | CONTRAST | | 2:15 AM | | procedure are in the | | | | PDT | | results section. | + +--------+ + + + | GRAM SMEAR ONLY, | Urgent | 05/14/2018 | | Results for this | | STAT | | 10:02 PM | | procedure are in the | | | | PDT | | results section. | + +--------+ + + + | CULTURE, WOUND | Routin | 05/14/2018 | | Results for this | | ABSCESS OR ASPIRATE | e | 10:02 PM | | procedure are in the | | W/ ANAEROBE | | PDT | | results section. | + +--------+ + + + | C-REACTIVE PROTEIN | Urgent | 05/14/2018 | | Results for this | | | | 8:36 PM | | procedure are in the | | | | PDT | | results section. | + +--------+ + + + | SEDIMENTATION RATE | Urgent | 05/14/2018 | | Results for this | | | | 8:36 PM | | procedure are in the | | | | PDT | | results section. | + +--------+ + + + | CT HEAD W CONTRAST | Urgent | 05/14/2018 | | Results for this | | | | 3:35 PM | | procedure are in the | | | | PDT | | results section. | + +--------+ + + + | BG-LAC,POC ISTAT | Urgent | 05/14/2018 | | Results for this | | | | 2:26 PM | | procedure are in the | | | | PDT | | results section. | + +--------+ + + + | CULTURE, BLOOD BACTI | Urgent | 05/14/2018 | | Results for this | | & YEAST [facility] | | 1:53 PM | | procedure are in the | | | | PDT | | results section. | + +--------+ + + + | CULTURE, BLOOD BACTI | Urgent | 05/14/2018 | | Results for this | | & YEAST [facility] | | 1:53 PM | | procedure are in the | | | | PDT | | results section. | + +--------+ + + + | CBC AND AUTO DIFF | Urgent | 05/14/2018 | | Results for this | | | | 1:53 PM | | procedure are in the | | | | PDT | | results section. | + +--------+ + + + | CBC, WITH | Urgent | 05/14/2018 | | Results for this | | DIFFERENTIAL | | 1:53 PM | | procedure are in the | | | | PDT | | results section. | + +--------+ + + + | COMPLETE METABOLIC | Urgent | 05/14/2018 | | Results for this | | SET | | 1:53 PM | | procedure are in the | | (NA,K,CL,CO2,BUN,CRE | | PDT | | results section. | | AT,GLUC,CA,AST,ALT,B | | | | | | EMILIANO TOTAL,ALK | | | | | | PHOS,ALB,PROT TOTAL) | | | | | + +--------+ + + + | CULTURE, BLOOD BACTI | Urgent | 05/14/2018 | | Results for this | | & YEAST | | 1:53 PM | | procedure are in the | | | | PDT | | results section. | + +--------+ + + + | CULTURE, BLOOD BACTI | Urgent | 05/14/2018 | | Results for this | | & YEAST | | 1:53 PM | | procedure are in the | | | | PDT | | results section. | + +--------+ + + + | RAINBOW HOLD TUBE - | Routin | 05/14/2018 | | | | RED TOP | e | 1:53 PM | | | | | | PDT | | | + +--------+ + + + | RAINBOW HOLD TUBE - | Urgent | 05/14/2018 | | | | BLUE TOP | | 1:53 PM | | | | | | PDT | | | + +--------+ + + + documented in this encounter Results CBC (HEMOGRAM) ONLY (05/15/2018 2:36 AM PDT) + + + + + + | Component | Value | Ref Range | Performed | Pathologist | | | | | At | Signature | + + + + + + | WHITE CELL | 7.78 | 3.50 - 10.80 | [facility] | | | COUNT | | K/cu mm | LABORATORY | | | | | | SERVICES, | | | | | | CORE | | + + + + + + | RED CELL | 3.88 (L) | 4.00 - 5.20 | [facility] | | | COUNT | | M/cu mm | LABORATORY | | | | | | SERVICES, | | | | | | CORE | | + + + + + + | HEMOGLOBIN | 12.0 | 12.0 - 16.0 | [facility] | | | | | g/dL | LABORATORY | | | | | | SERVICES, | | | | | | CORE | | + + + + + + | HEMATOCRIT | 35.6 (L) | 36.0 - 46.0 % | [facility] | | | | | | LABORATORY | | | | | | SERVICES, | | | | | | CORE | | + + + + + + | MCV | 91.8 | 80.0 - 100.0 fL | [facility] [...] + + + + | PLATELET | 309 | 150 - 400 K/cu | [facility] [...] | + + + + + | [facility] | [address] | [place] [address] | | | SERVICES, CORE | [address] | | | + + + + + APTT (ACT. PART. THROMBO TIME) (05/15/2018 2:36 AM PDT) + +-------+ + + + | Component | Value | Ref Range | Performed | Pathologist | | | | | At | Signature | + +-------+ + + + | APTT | 28.4 | 26.0 - 36.0 | [facility] | [...] Range: (75 - 120) sec Heparin | SERVICES, CORE | | levels of 0.35 - 0.7 U/mL | | + + + + + + + + | Performing | Address | City/State/Zipcode | Phone Number | | Organization | | | | + + + + + | [facility] | [address] | [place] [address] | | | SERVICES, CORE | [address] | | | + + + + + INR (05/15/2018 2:36 AM PDT) + +-------+ + + + | Component | Value | Ref Range | Performed | Pathologist | | | | | At | Signature | + +-------+ + + + | INR | 1.08 | 0.90 - 1.20 INR | [facility] [...] + | [facility] | [address] | [place] [address] | | | SERVICES, CORE | [address] | | | + + + + + BASIC METABOLIC SET (NA, K, CL, TCO2, BUN, CR, GLU, CA) (05/15/2018 2:36 AM PDT) + +---------+ + + + | Component | Value | Ref Range | Performed | Pathologist | | | | | At | Signature | + +---------+ + + + | GLUCOSE, | 125 (H) | 70 - 99 mg/dL | [...] + | [facility] | [address] | [place] [address] | | | SERVICES, CORE | [address] | | | + + + + + C-REACTIVE PROTEIN (05/15/2018 2:36 AM PDT) + + + + + + | Component | Value | Ref Range | Performed | Pathologist | | | | | At | Signature | + + + + + + | C-REACTIVE | 23.5 (H) | <10.0 mg/L | [facility] | [...] + | [facility] | [address] | [place] [address] | | | SERVICES, CORE | [address] | | | + + + + + MRI BRAIN WWO CONTRAST (05/15/2018 2:15 AM PDT) + + | Specimen | + + | | + + + + + | Narrative | Performed At | + + + | EXAM: MRI BRAIN W/WO CONTRAST HISTORY: evaluate right frontal | [facility] | | fluid collection. COMPARISON: CT head 05/14/2018 TECHNIQUE: | RADIOLOGY VOICE | | Multiplanar multi-sequence MRI of the brain without and with | RECOGNITION 2 | | gadolinium based intravenous contrast: GADOTERATE MEGLUMINE 0.5 | | | MMOL/ML (376.9 MG/ML) INTRAVENOUS SOLUTION 10 mL FINDINGS: | | | BRAIN: Redemonstration of right-sided synthetic graft pterional | | | cranioplasty. On the outer side of the cranipolasty in the right | | | temporal fossa fluid is a collection measuring up to 12 mm in | | | thickness, decreased from prior, with scattered susceptibility | | | artifact consistent with gas locules. Enhancement is present in the | | | soft tissues bounding the right temporal fossa collection. No | | | homogeneous diffusion restriction on DWI. On the inner side of the | | | cranioplasty, there is a 7 mm extra-axial T2 hyperdense extra-axial | | | collection is unchanged in size with underlying minimal dural | | | thickening and enhancement. No associated diffusion restriction. | | | FLAIR hyperintensity surrounding unchanged bilateral areas of | | | encephalomalacia in the medial frontal lobes, consistent with gliosis. | | | Susceptibility artifact from suprasellar aneurysm clips are also | | | noted. No evidence of hemorrhage, mass, or acute infarction. The | | | ventricles are stable in size and morphology. SOFT TISSUES AND | | | MARROW: Unremarkable. FACE AND ORBITS: Visualized portions are | | | unremarkable. IMPRESSION: Status post right pterional | | | cranioplasty with redemonstration of adjacent right temporal fossa and | | | extra-axial T2 hyperintense fluid collections, mildly decreased in | | | size compared to CT from one day prior, without diffusion restriction | | | to suggestion to suggest abscess formation, although early or atypical | | | infection may still be considered in the appropriate clinical | | | setting. Minimal associated dural and soft tissue thickening and | | | enhancement are favored to be postoperative in etiology. These | | | results were discussed with Dr. Allen in the ED on 05/15/2018 2:36 | | | AM by Danni Moise MD. I have personally reviewed the images | | | and, if necessary, edited the report. I agree with the report as now | | | presented. Final signature: Dominic Castro MD 05/15/2018 8:46 AM | | | Preliminary: Danni Mosie MD Dictation initiated: Danni Moise MD 05/15/2018 2:16 AM | | + + + + + | Procedure Note | + + | Service Account, Radiant Res In Interface - 05/15/2018 8:47 AM PDT EXAM: MRI BRAIN | | W/WO CONTRAST HISTORY: evaluate right frontal fluid collection. COMPARISON: CT head | | 05/14/2018 TECHNIQUE: Multiplanar multi-sequence MRI of the brain without and with | | gadolinium based intravenous contrast: GADOTERATE MEGLUMINE 0.5 MMOL/ML (376.9 MG/ML) | | INTRAVENOUS SOLUTION 10 mL FINDINGS: BRAIN: Redemonstration of right-sided synthetic | | graft pterional cranioplasty. On the outer side of the cranipolasty in the right | | temporal fossa fluid is a collection measuring up to 12 mm in thickness, decreased from | | prior, with scattered susceptibility artifact consistent with gas locules. Enhancement | | is present in the soft tissues bounding the right temporal fossa collection. No | | homogeneous diffusion restriction on DWI. On the inner side of the cranioplasty, there | | is a 7 mm extra-axial T2 hyperdense extra-axial collection is unchanged in size with | | underlying minimal dural thickening and enhancement. No associated diffusion | | restriction. FLAIR hyperintensity surrounding unchanged bilateral areas of | | encephalomalacia in the medial frontal lobes, consistent with gliosis. Susceptibility | | artifact from suprasellar aneurysm clips are also noted. No evidence of hemorrhage, | | mass, or acute infarction. The ventricles are stable in size and morphology. SOFT | | TISSUES AND MARROW: Unremarkable.FACE AND ORBITS: Visualized portions are unremarkable. | | IMPRESSION: Status post right pterional cranioplasty with redemonstration of adjacent | | right temporal fossa and extra-axial T2 hyperintense fluid collections, mildly decreased | | in size compared to CT from one day prior, without diffusion restriction to suggestion | | to suggest abscess formation, although early or atypical infection may still be | | considered in the appropriate clinical setting. Minimal associated dural and soft tissue | | thickening and enhancement are favored to be postoperative in etiology. These results | | were discussed with Dr. Allen in the ED on 05/15/2018 2:36 AM by Danni Moise MD. I | | have personally reviewed the images and, if necessary, edited the report. I agree with | | the report as now presented. Final signature: Dominic Castro MD 05/15/2018 8:46 AM | | Preliminary: Danni Moise MD Dictation initiated: Danni Moise MD 05/15/2018 | | 2:16 AM | |These results were discussed with Dr. Allen in the ED on 05/15/2018 2:36 AM by Danni manning MD. | | | |I have personally reviewed the images and, if necessary, edited the report. I agree with th e report as now presented. | | | |Final signature: Dominic Castro MD 05/15/2018 8:46 AM | |Preliminary: Danni Moise MD | |Dictation initiated: Danni Moise MD 05/15/2018 2:16 AM | + + + +---------+ + + | Performing | Address | City/State/Zipcode | Phone Number | | Organization | | | | + +---------+ + + | [facility] | | | | | VOICE RECOGNITION 2 | | | | + +---------+ + + GRAM SMEAR ONLY, STAT (05/14/2018 10:02 PM PDT) + + + + + + | Component | Value | Ref Range | Performed | Pathologist | | | | | At | Signature | + + + + + + | GRAM STAIN | No organisms seen | No organisms | [facility] | | | RESULT | | seen | LABORATORY | | | | | | SERVICES, | | | | | | CORE | | + + + + + + | SMEAR | Cytospin | | [facility] | | | PREPARATION | | | LABORATORY | | | | | | SERVICES, | | | | | | CORE | | + + + + + + | SOURCE BODY | Abscess - Scalp | | [facility] | | | SITE | | | LABORATORY | | | | | | SERVICES, | | | | | | CORE | | + + + + + + + + | Specimen | + + | Fluid - Scalp | | structure (body | | structure) | + + + + + + + | Performing | Address | City/State/Zipcode | Phone Number | | Organization | | | | + + + + + | [facility] | [address] | [place] [address] | | | SERVICES, CORE | [address] | | | + + + + + CULTURE, WOUND ABSCESS OR ASPIRATE W/ ANAEROBE (05/14/2018 10:02 PM PDT) + + | Specimen | + + | Aspirate - Scalp | | structure (body | | structure) | + + + + + | Narrative | Performed At | + + + | Culture Report: No growth No anaerobic organisms isolated | [facility] | | Gram Stain: Moderate polymorphonuclear cells No squamous | [facility] - | | epithelial cells No organisms seen | [facility] | + + + + + + + + | Performing | Address | City/State/Zipcode | Phone Number | | Organization | | | | + + + + + | [facility] | [address] | [place] [address] | | | [place] | | | | + + + + + SEDIMENTATION RATE (05/14/2018 8:36 PM PDT) + +--------+ + + + | Component | Value | Ref Range | Performed | Pathologist | | | | | At | Signature | + +--------+ + + + | SEDIMENTATI | 45 (H) | 0 - 30 mm/hr | [...] + | Conditions such as cold agglutinins, anemia(including sickle cell | [facility] | | disease), multiple myeloma, hemolysis, icterus or lipemia may affect | LABORATORY | | sedimentation rate. | SERVICES, CORE | + + + + + + + + | Performing | Address | City/State/Zipcode | Phone Number | | Organization | | | | + + + + + | [facility] | [address] | [place] [address] | | | SERVICES, CORE | [address] | | | + + + + + C-REACTIVE PROTEIN (05/14/2018 8:36 PM PDT) + + + + + + | Component | Value | Ref Range | Performed | Pathologist | | | | | At | Signature | + + + + + + | C-REACTIVE | 23.9 (H) | <10.0 mg/L | [facility] | [...] | + + + + + | [facility] | [address] | [place] [address] | | | SERVICES, CORE | [address] | | | + + + + + CT HEAD W CONTRAST (05/14/2018 3:35 PM PDT) + + | Specimen | + + | | + + + + + | Narrative | Performed At | + + + | EXAM: CT HEAD WITH CONTRAST HISTORY: R/O Post op N/Surg | [facility] | | infection COMPARISON: 05/08/2018 TECHNIQUE: CT of the head | RADIOLOGY VOICE | | with iodine based intravenous contrast. FINDINGS: BRAIN: | RECOGNITION 2 | | Redemonstration of a right-sided synthetic graft pterional | | | cranioplasty. There is an underlying 7 mm extra-axial collection, that | | | likely communicates with a new 1.6 cm thick right frontal | | | extracranial subgaleal collection with gas locules, and mild | | | enhancement of the margins. No significant surrounding inflammatory | | | changes are present. Suprasellar aneurysm clips are redemonstrated. | | | There is stable encephalomalacia involving the medial portions of the | | | bilateral frontal lobes, more extensive on the left. No acute | | | intracranial hemorrhage, mass or acute infarction. Unchanged | | | ventricular caliber without hydrocephalus.. SOFT TISSUES: Right | | | frontal extra cranial subgaleal fluid collection, as above. SKULL AND | | | SKULL BASE: No acute fractures or destructive lesions. Mastoids and | | | middle ears are unremarkable. FACE/ORBITS: Visualized portions are | | | unremarkable. PARANASAL SINUSES: Visualized portions are | | | unremarkable. IMPRESSION: New right frontal subgaleal fluid | | | collection measuring 1.6 cm in thickness, with likely communication | | | with the right frontal extra-axial fluid through the cranioplasty. | | | Margins of the fluid collection show mild enhancement, without | | | significant surrounding inflammatory changes, favoring postoperative | | | seroma, however infected fluid may have similar appearance. These | | | results were discussed with Dr. Coe on 05/14/2018 4:04 PM by | | | Unruly Wolff MD. I have personally reviewed the images and, | | | if necessary, edited the report. I agree with the report as now | | | presented. Final signature: Best Clements MD 05/14/2018 4:49 | | | PM Preliminary: Unruly Wolff MD Dictation initiated: | | | Unruly Wolff MD 05/14/2018 3:41 PM | | + + + + + | Procedure Note | + + | Service Account, Radiant Res In Interface - 05/14/2018 4:50 PM PDT EXAM: CT HEAD | | WITH CONTRAST HISTORY: R/O Post op N/Surg infection COMPARISON: 05/08/2018 TECHNIQUE: | | CT of the head with iodine based intravenous contrast. FINDINGS: BRAIN: Redemonstration | | of a right-sided synthetic graft pterional cranioplasty. There is an underlying 7 mm | | extra-axial collection, that likely communicates with a new 1.6 cm thick right frontal | | extracranial subgaleal collection with gas locules, and mild enhancement of the margins. | | No significant surrounding inflammatory changes are present. Suprasellar aneurysm clips | | are redemonstrated.There is stable encephalomalacia involving the medial portions of | | the bilateral frontal lobes, more extensive on the left.No acute intracranial | | hemorrhage, mass or acute infarction. Unchanged ventricular caliber without | | hydrocephalus.. SOFT TISSUES: Right frontal extra cranial subgaleal fluid collection, as | | above.SKULL AND SKULL BASE: No acute fractures or destructive lesions. Mastoids and | | middle ears are unremarkable.FACE/ORBITS: Visualized portions are unremarkable.PARANASAL | | SINUSES: Visualized portions are unremarkable. IMPRESSION: New right frontal subgaleal | | fluid collection measuring 1.6 cm in thickness, with likely communication with the right | | frontal extra-axial fluid through the cranioplasty. Margins of the fluid collection | | show mild enhancement, without significant surrounding inflammatory changes, favoring | | postoperative seroma, however infected fluid may have similar appearance. These results | | were discussed with Dr. Coe on 05/14/2018 4:04 PM by Unruly Wolff MD. I have | | personally reviewed the images and, if necessary, edited the report. I agree with the | | report as now presented. Final signature: Best Clements MD 05/14/2018 4:49 PM | | Preliminary: Unruly Wolff MD Dictation initiated: Unruly Wolff MD | | 05/14/2018 3:41 PM | |enhancement, without significant surrounding inflammatory changes, favoring postoperative s eroma, however infected fluid may have similar appearance. | | | |These results were discussed with Dr. Coe on 05/14/2018 4:04 PM by Unruly Wolff MD. | | | |I have personally reviewed the images and, if necessary, edited the report. I agree with th e report as now presented. | | | |Final signature: Best Clements MD 05/14/2018 4:49 PM | |Preliminary: Unruly Wolff MD | |Dictation initiated: Unruly Wolff MD 05/14/2018 3:41 PM | + + + +---------+ + + | Performing | Address | City/State/Zipcode | Phone Number | | Organization | | | | + +---------+ + + | [facility] | | | | | VOICE RECOGNITION 2 | | | | + +---------+ + + BG-LAC,POC ISTAT (05/14/2018 2:26 PM PDT) + +--------+ + + + | Component | Value | Ref Range | Performed | Pathologist | | | | | At | Signature | + +--------+ + + + | TOTAL CO2 | 27 | 23 - 29 mmol/L | [facility] - | | | GIA, POC | | | [place] | | | | | | [facility] | | | | | | OF CARE | | | | | | TESTS | | + +--------+ + + + | PH VENOUS, | 7.37 | 7.35 - 7.45 | [facility] - | | | POC | | | [place] | | | | | | [facility] | | | | | | OF CARE | | | | | | TESTS | | + +--------+ + + + | PCO2 | 44 | 35 - 50 mmHg | [facility] - | | | VENOUS, POC | | | [place] | | | | | | [facility] | | | | | | OF CARE | | | | | | TESTS | | + +--------+ + + + | HCO3 | 25 | 22 - 28 mmol/L | [facility] - | | | VENOUS, POC | | | [place] | | | | | | [place] | | | | | | OF CARE | | | | | | TESTS | | + +--------+ + + + | PO2 VENOUS, | <50 | 30 - 55 mmHg | [facility] - | | | POC | | | [place] | | | | | | [facility] | | | | | | OF CARE | | | | | | TESTS | | + +--------+ + + + | O2 SAT | 57 | % | [facility] - | | | VENOUS, POC | | | [place] | | | | | | [place] | | | | | | OF CARE | | | | | | TESTS | | + +--------+ + + + | LACTATE | 0.8 | 0.5 - 2.0 | [facility] - | | | VENOUS, POC | | mmol/L | [place] | | | | | | [place] | | | | | | OF CARE | | | | | | TESTS | | + +--------+ + + + | PAT TEMP | 36.6 C | | [facility] - | | | VENOUS,POC | | | [place] | | | | | | [facility] | | | | | | OF CARE | | | | | | TESTS | | + +--------+ + + + | BASE EXCESS | 0.0 | mmol/L | [facility] | | | GIA, POC | | | [place] | | [...] + | [facility] | [address] | [place], [place] | | | [facility] | [address] | [address] | | | TESTS | | | | + + + + + CULTURE, BLOOD BACTI & YEAST [facility] (05/14/2018 1:53 PM PDT) + + + + + [...] + + + + + | [facility] | [address] | [place] [address] | | | SERVICES, CORE | [address] | | | + + + + + CULTURE, BLOOD BACTI & YEAST [facility] (05/14/2018 1:53 PM PDT) + + + + + [...] | Blood - Structure of | | right hand (body | | structure) | + + + + + + + | Performing | Address | City/State/Zipcode | Phone Number | | Organization | | | | + + + + + | [facility] | [address] | [place] [address] | | | SERVICES, CORE | [address] | | | + + + + + CBC AND AUTO DIFF (05/14/2018 1:53 PM PDT) + + + + + + | Component | Value | Ref Range | Performed | Pathologist | | | | | At | Signature | + + + + + + | WHITE CELL | 8.33 | 3.50 - 10.80 | [facility] | | | COUNT | | K/cu mm | LABORATORY | | | | | | SERVICES, | | | | | | CORE | | + + + + + + | RED CELL | 3.96 (L) | 4.00 - 5.20 | [facility] | | | COUNT | | M/cu mm | LABORATORY | | | | | | SERVICES, | | | | | | CORE | | + + + + + + | HEMOGLOBIN | 12.1 | 12.0 - 16.0 | [facility] | | | | | g/dL | LABORATORY | | | | | | SERVICES, | | | | | | CORE | | + + + + + + | HEMATOCRIT | 37.0 | 36.0 - 46.0 % | [facility] | | | | | | LABORATORY | | | | | | SERVICES, | | | | | | CORE | | + + + + + + | MCV | 93.4 | 80.0 - 100.0 fL | [facility] | | | | | | LABORATORY | | | | | | SERVICES, | | | | | | CORE | | + + + + + + | MCHC | 32.7 | 32.0 - 36.0 | [facility] | | | | | g/dL | LABORATORY | | | | | | SERVICES, | | | | | | CORE | | + + + + + + | RDW SD | 45.1 | 35.1 - 46.3 fL | [facility] | | | | | | LABORATORY | | | | | | SERVICES, | | | | | | CORE | | + + + + + + | PLATELET | 325 | 150 - 400 K/cu | [facility] [...] + + + + | NEUTROPHIL | 65.0 | 50.0 - 70.0 % | [facility] | | | % | | | LABORATORY | | | | | | SERVICES, | | | | | | CORE | | + + + + + + | LYMPHOCYTE | 17.2 (L) | 18.0 - 42.0 % | [facility] | | | % | | | LABORATORY | | | | | | SERVICES, | | | | | | CORE | | + + + + + + | MONOCYTE % | 13.6 (H) | 3.5 - 9.0 % | [facility] | | | | | | LABORATORY | | | | | | SERVICES, | | | | | | CORE | | + + + + + + | EOS % | 3.1 (H) | 1.0 - 3.0 % | [...] + + + + | IG% | 0.5Comment: Increased | 0.0 - 1.0 % | [...] + + + + | NEUTROPHIL | 5.42 | 1.80 - 7.70 | [facility] | | | # | | K/cu mm | LABORATORY | | | | | | SERVICES, | | | | | | CORE | | + + + + + + | LYMPHOCYTE | 1.43 | 1.00 - 4.80 | [facility] | | | # | | K/cu mm | LABORATORY | | | | | | SERVICES, | | | | | | CORE | | + + + + + + | MONOCYTE # | 1.13 (H) | 0.10 - 0.90 | [facility] | | | | | K/cu mm | LABORATORY | | | | | | SERVICES, | | | | | | CORE | | + + + + + + | EOS # | 0.26 | 0.00 - 0.50 | [facility] | [...] + + + + | IG# | 0.04 | 0.00 - 0.10 | [...] + | [facility] | [address] | [place] [address] | | | SERVICES, CORE | [address] | | | + + + + + COMPLETE METABOLIC SET (NA,K,CL,CO2,BUN,CREAT,GLUC,CA,AST,ALT,BILI TOTAL,ALK PHOS,ALB,PROT TOTAL) (05/14/2018 1:53 PM PDT) + +---------+ + + + [...] +---------+ + + + | SODIUM, | 136 | 136 - 145 | [facility] | [...] +---------+ + + + | TOTAL | 7.2 | 6.4 - 8.2 g/dL | [facility] [...] + + + | ALK PHOS | 95 | 53 - 141 U/L | [facility] | | | | | | LABORATORY | | | | | | SERVICES, | | | | | | CORE | | + +---------+ + + + | AST(SGOT) | 13 | <=41 U/L | [facility] | | | | | | LABORATORY | | | | | | SERVICES, | | | | | | CORE | | + +---------+ + + + | ALT (SGPT) | 22 | <=60 U/L | [facility] | | [...] | + +---------+ + + + | BILI T CMNT | No Hemo | | [facility] | | | | | | LABORATORY | | | | | | SERVICES, | | | | | | CORE | | + +---------+ + + + | AST CMNT | No Hemo | | [facility] | [...] | + + + + + | [facility] | [address] | [place] [address] | | | SERVICES, CORE | [address] | | | + + + + + RAINBOW HOLD TUBE - BLUE TOP (05/14/2018 1:53 PM PDT) + + | Specimen | + + | Blood - Blood | | (substance) | + + + + + + + | Performing | Address | City/State/Zipcode | Phone Number | | Organization | | | | + + + + + | [facility] | [address] | [place] [address] | | | RYAN [place]NELAS | [address] | | | + + + + + RAINBOW HOLD TUBE - RED TOP (05/14/2018 1:53 PM PDT) + + | Specimen | + + | Blood - Blood | | (substance) | + + + + + + + | Performing | Address | City/State/Zipcode | Phone Number | | Organization | | | | + + + + + | [facility] | [address] | [place] [address] | | | SERVICES, CORE | [address] [...] | acetaminophen (TYLENOL) tablet | Given | 05/17/19 | 650 mg | | | | 650 mg 650 mg, oral, EVERY 4 | | 19 12:58 | | | | | HOURS NEEDED, Starting Mon | | PM PDT | | | | | 05/15/18 at 0114, Until Clarisa | | | | | | | 05/18/18 at 0141, mild pain, first | | | | | | | line, multimodal pain control | | | | | | + +--------+ +--------+------+------+ +---+---+ | | | +---+---+ + +-------+ +--------+---+---+ | ascorbic acid (vitamin C) | Given | 05/18/19 | 500 mg | | | | tablet 500 mg 500 mg, oral, | | 19 9:57 | | | | | TWICE DAILY, First dose on Mon | | AM PDT | | | | | 05/15/18 at 0115, Until | | | | | | | Discontinued | | | | | | + +-------+ +--------+---+---+ +-------+ +--------+---+---+ | Given | 05/17/19 | 500 mg | | | | | 19 8:37 | | | | | | PM PDT | | | | +-------+ +--------+---+---+ | Given | 05/16/19 | 500 mg | | | | | 19 8:45 | | | | | | PM PDT | | | | +-------+ +--------+---+---+ +---+---+ | | | +---+---+ + +-------+ +-------+---+---+ | atorvastatin (LIPITOR) tablet | Given | 05/17/19 | 80 mg | | | | 80 mg 80 mg, oral, DAILY, First | | 19 8:38 | | | | | dose on Tue05/15/18 at 2100, | | PM PDT | | | | | Until Discontinued | | | | | | + +-------+ +-------+---+---+ +-------+ +-------+---+---+ | Given | 05/16/19 | 80 mg | | | | | 19 8:45 | | | | | | PM PDT | | | | +-------+ +-------+---+---+ +---+---+ | | | +---+---+ + +---------+ +-------+---+---+ | gadoterate meglumine (DOTAREM) | IV Push | 05/16/19 | 10 mL | | | | 0.5 mmol/mL (376.9 mg/mL) | | 19 2:04 | | | | | injection 10 mL 10 mL (0.2 mL/kg | | AM PDT | | | | | | | | | | | | 50 kg), intravenous, ONCE, 1 | | | | | | | dose, 05/15/18 at 0200 | | | | | | + +---------+ +-------+---+---+ +---+---+ | | | +---+---+ + +---------+ +--------+---+---+ | iohexol (OMNIPAQUE) 350 mg | IV Push | 05/15/19 | 100 mL | | | | iodine/mL injection 100 mL 100 | | 19 4:15 | | | | | mL, intravenous, ONCE, 1 dose, | | PM PDT | | | | | 05/14/18 at 1615 | | | | | | + +---------+ +--------+---+---+ +---+---+ | | | +---+---+ + +-------+ +------+---+---+ | ipratropium-albuterol (DUO-NEB) | Given | 05/18/19 | 3 mL | | | | nebulizer solution 3 mL 3 mL, | | 19 9:26 | | | | | inhalation, TWICE DAILY, First | | AM PDT | | | | | dose on 05/15/18 at 0115, | | | | | | | Until Discontinued | | | | | | + +-------+ +------+---+---+ +-------+ +------+---+---+ | Given | 05/17/19 | 3 mL | | | | | 19 8:30 | | | | | | PM PDT | | | | +-------+ +------+---+---+ | Given | 05/17/19 | 3 mL | | | | | 19 10:09 | | | | | | AM PDT | | | | +-------+ +------+---+---+ +---+---+ | | | +---+---+ + +-------+ +-------+---+---+ | metoprolol succinate | Given | 05/18/19 | 50 mg | | | | (TOPROL-XL) tablet 50 mg 50 mg, | | 19 9:55 | | | | | oral, DAILY, First dose on Mon | | AM PDT | | | | | 05/15/18 at 0900, Until | | | | | | | Discontinued | | | | | | + +-------+ +-------+---+---+ +-------+ +-------+---+---+ | Given | 05/17/19 | 50 mg | | | | | 19 9:00 | | | | | | AM PDT | | | | +-------+ +-------+---+---+ | Given | 05/16/19 | 50 mg | | | | | 19 8:59 | | | | | | AM PDT | | | | +-------+ +-------+---+---+ +---+---+ | | | +---+---+ + + + +---+ +---+ | NaCl 0.9%-KCl 20 mEq/L IV | Rate/Dos | 05/16/19 | | 75 mL/hr | | | infusion intravenous, | e Verify | 19 11:30 | | | | | CONTINUOUS, Starting 05/15/18 | | AM PDT | | | | | at 0115, Until Tue05/15/18 at | | | | | | | 1835, at 75 mL/hr | | | | | | + + + +---+ +---+ + + +---+ +---+ | Rate/Dose Verify | 05/16/19 | | 75 mL/hr | | | | 19 10:56 | | | | | | AM PDT | | | | + + +---+ +---+ | Rate/Dose Verify | 05/16/19 | | 75 mL/hr | | | | 19 7:40 | | | | | | AM PDT | | | | + + +---+ +---+ +---+---+ | | | +---+---+ + +-------+ +-------+---+---+ | spironolactone (ALDACTONE) | Given | 05/18/19 | 25 mg | | | | tablet 25 mg 25 mg, oral, DAILY, | | 19 9:55 | | | | | First dose on Tue05/15/18 at | | AM PDT | | | | | 0900, Until Discontinued | | | | | | + +-------+ +-------+---+---+ +-------+ +-------+---+---+ | Given | 03//20 | 25 mg | | | | | 19 9:00 | | | | | | AM PDT | | | | +-------+ +-------+---+---+ | Given | 03//20 | 25 mg | | | | | 19 8:59 | | | | | | AM PDT | | | | +-------+ +-------+---+---+ +---+---+ | | | +---+---+ documented in this encounter
--- OUTSIDE RECORDS SUMMARY | ~2019-10-16 | XMS | Encounter Summary ---
Demographics + + + | Address | [address] | | | [place] [address] | + + + | Home Phone [...] Team Providers + +------+ + | Care First Line Production Supervisor Name | Role | Phone | [...] | Stay [address] | [address] [facility] [place] | | | | | [address] | [id number] | | | | | Mailcode: UHN65 | | | | | | Darius Simpson | | | | | | [address] [place], [place] | | | | | | [address] | | | | | | [phone] | | | +--------+---------+ + + + [...] hand; 20; Right; Hand; | Amaya Norton, [facility] | Almita Butler, | | Periph [...] or walk. 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 Results were not available [...] air. CVA - SAH, 2007: Stable - AERONAUTICS TEACHER shunt (right) s/p hydrocephalous in 2008. She [...] to this patient's care. GRANT Joy FNP [facility] 4TH FLOOR DAY STAY [address] [facility] [address] I counseled the pt regarding [...] DEPT OF | [address] | [place], [place] | | | CARDIOLOGY | [address] | [address] | | + + + + + [...]
--- OUTSIDE RECORDS SUMMARY | ~2019-10-16 | XMS | Encounter Summary ---
Demographics + + + | Address | [address] | | | [place] [address] | + + + | Home Phone [...] Team Providers + +------+ + | Care Superintendent Construction Name | Role | Phone | + [...] | | | [facility] | [place], [place] | | | | | [facility], | [address] | | | | | [place] [address] [facility] | [phone] | | | | | [place], [place] | | | | | | [address] | | | | | | [phone] | | | +--------+ + + + [...] scan sent t o our office from [facility] in [place]. Dr. Huber reviewed scan and said ever [...]
--- OUTSIDE RECORDS SUMMARY | ~2019-10-16 | XMS | Encounter Summary ---
Demographics + + + | Address | [address] | | | [place] [address] | + + + | Home Phone [...] Providers + +------+ + | Care Top Closer Name | Role | Phone | + [...] Contrast Allergy | | 2017 | | [place] [address] [address] | | Clarification | | | | [address] | | | | | | [place], [place] | | | | | | [address] | | | | | | [phone] | | | +--------+ + + + [...]
--- OUTSIDE RECORDS SUMMARY | ~2019-10-16 | XMS | Encounter Summary ---
Demographics + + + | Address | [address] | | | [place] [address] | + + + | Home Phone | | + + + | Preferred Language | Unknown | + + + | Marital Status | | + + + | Moravian Affiliation | Unknown | + + + [...] Team Providers + +------+ + | Care Rigging Engineer Name | Role | Phone | [...] + + | 03/11/ | Telephone | [facility] | Chadd Tian MD | Appointment (RECALL) | | 2017 | | CARDIOLOGY [address] | [address] | | | | | [place], | [place], [place] | | | | | [place] [address] | [id number] | | | | | [phone] | | | +--------+ + + + [...]
--- OUTSIDE RECORDS SUMMARY | ~2019-10-16 | XMS | Encounter Summary ---
Demographics + + + | Address | [address] | | | [place] [address] | + + + | Home Phone [...] + + + | Author | [facility] | + + + | Organization | [facility] | + + + | [...] Team Providers + +------+ + | Care Policewoman Name | Role | Phone | + [...] | | | | s (HCC) | [place], [place] | [place], [place] | | | | | Procedures | [address] | [address] | | | | | REQUEST TO | Phone: | Phone: | | | | | SURGERY | [phone] | [phone] | | | | | MOTION PICTURE CAMERA OPERATOR | Fax: | Fax: | | | | | [place] CREATE | [phone] | [phone] | | | | | SHUNT:VENTRI | [...] | | | [facility] | [facility] [place] | (Subarachnoid | | | | Health and Healing, | [address] | Hemorrhage) (HCC) | | | | [facility] | [phone] | | | | | floor [place], [place] | | | | | | [address] | | | | | | [phone] | | | +--------+---------+ + + + [...] [address] Mailcode: [place] [address] documented in this encou nter [...]
--- OUTSIDE RECORDS SUMMARY | ~2019-10-16 | XMS | Encounter Summary ---
Demographics + + + | Address | [address] | | | [place] [address] | + + + | Home Phone [...] Team Providers + +------+ + | Care Almond Cutting Machine Tender Name | Role | Phone [...] Ave | | | | | [facility] | [place], [place] | | | | | [facility]aling, | [address] | | | | | [place] [address] [facility] | [phone] | | | | | floor [place], [place] | | | | | | [address] | | | | | | [phone] | | | +--------+ + + + [...]
--- OUTSIDE RECORDS SUMMARY | ~2019-10-16 | XMS | Encounter Summary ---
Demographics + + + | Address | [address] | | | [place] [address] | + + + | Home Phone [...] Team Providers + +------+ + | Care Reverse Logistics Analyst Name | Role | Phone | [...] SKIN GRAFT | | | | [facility] | [place], | RIGHT LEG TO SCALP | | | | Hospital Admitting | [place] [address] | RECONSTRUCTION 20X5 | | | | Desk Located on the | [phone] | CM | | | | 9th floor | | | | | | [place], [place] | | | | | | [address] | | | +--------+---------+ + + + [...]
--- OUTSIDE RECORDS SUMMARY | ~2019-10-16 | XMS | Encounter Summary ---
Demographics + + + | Address | [address] | | | [place] [address] | + + + | Home Phone | | + + + | Preferred Language | Unknown | + + + | Marital Status | | + + + | Latter-Day Affiliation | Unknown | + + + | Race | White | + + + | Ethnic Group | Not or | + + + Author + + + | Author | [facility] | | | and [place] | + + + | Organization | [facility] | | [...] Team Providers + +------+ + | Care Sample Wrapper Name | Role | Phone | + [...] | pain, unspecified | | | | [place], | [place], [place] | chronicity (Primary | | | | [place] [address] | [address] | Dx); Fatigue, | | | | [phone] | | unspecified type; | | | | | | NSTEMI (non-ST | | | | | | elevated myocardial | | | | | | infarction) ([facility]); | | | | | | Coronary artery | | | | | | disease involving | | | | | | [place] coronary | | | | | | artery of [place] | | | | | | heart [...] due to bronchospasm CAD (coronary artery disease), [place] coronary artery CURRENT MEDICATIONS Current Outpatient Prescriptions [...] Nausea And Vomiting Codeine Nausea And Vomiting [place] Tar Hives Povidone Iodine Hives Sulfa Antibiotics [...] months Electronically signed by: Chana Luu MD [facility] 06/17/2015 Portions of this chart may have been created with [employer] voice recognition software. Occasi onal wrong-word or [...] + | [facility] | [address] | [place] | [phone] | | [facility] | | [address] | | | - LABORATORY | | [...] + | [facility] | [address] | Naila YooANTHONY | [phone] | | [facility] | | [address] | | | - LABORATORY | | [...] ST. | [address] | [place] | [phone] | | [facility] | | [address] | | | - LABORATORY | | [...] 10 | 7 - 18 mg/dL | [facility] | | | | | | [facility] | | | | | | MEDICAL | | | | | | CENTER - | | | | | | LABORATORY | | + + + + + + | Creatinine | 0.85 | 0.60 - 1.30 | [facility] | | | | | mg/dL | [facility] | | | | | | MEDICAL | | | | | | CENTER - | | | | | | LABORATORY | | + + + + + + | eGFR, | >60Comment: GLOMERULAR | >=60 | [facility] | | | non- | FILTRATION | mL/min/1.73m2 | [facility] | | | [place] | RATE,ESTIMATED | | MEDICAL | | | | mL/min/1.17h7Ubfw than | | CENTER - | | [...] [address] | [place] | [phone] | | [facility] | | [address] | | | - LABORATORY | | [...] + + | Coronary artery disease involving [place] coronary artery of [place] heart without | | angina pectoris | + + documented in this encounter
--- OUTSIDE RECORDS SUMMARY | ~2019-10-16 | XMS | Encounter Summary ---
Demographics + + + | Address | [address] | | | [place] [address] | + + + | Home Phone | | + + + | Preferred Language | Unknown | + + + | Marital Status | | + + + | Taoism Affiliation | Unknown | + + + [...] Team Providers + +------+ + | Care Sat Math Tutor Name | Role | Phone | + [...] | [address] | [address] | | | | | Procedures | [place] | [place], | | | | | [place] | [place], [place] | [place] | | | | | Stress Test | [address] | [address] | | | | | (Vasodilator | Phone: | Phone: | | | | | ) CHG | [phone] | [phone] | | | | | MYOCARDIAL | Fax: | Fax: | | | | | SPECT | [phone] | [phone] | | | | | MULTIPLE | [...] + | 08/06/ | Hospital | [facility] | Chana Luu, | | | 2017 | Encounter | MED CTR NUCLEAR | MD [address] | | | | | MEDICINE [address] | [place], [place] | | | | | [place], | [address] | | | | | [place] [address] | | | | | | [phone] | | | +--------+ + + + [...]
--- OUTSIDE RECORDS SUMMARY | ~2019-10-16 | XMS | Encounter Summary ---
Demographics + + + | Address | [address] | | | [place] [address] | + + + | Home Phone | | + + + | Preferred Language | Unknown | + + + | Marital Status | | + + + | Shinto Affiliation | Unknown | + + + | Race | White | + + + | Ethnic Group | Not or | + + + Author + + + | Author | [facility] | | | and [place] | + + + | Organization | [facility] | | | [...] Team Providers + +------+ + | Care Blue Line Hanger Name | Role | Phone | + [...] [address] | | | | | [place], | [place], [place] | | | | | [place] [address] | [address] | | | | | [phone] | | | +--------+ + + + [...] + + | REFERENCE LAB | [address] [facility] | [place] | [phone] | | [facility] | | [address] | | + + + + + | REFERENCE LAB | [address] [facility] | [place] | [phone] | | [facility] | | [address] | | + + + + + [...] + | REFERENCE LAB | [address] | [place] | [phone] | | [facility] | | [address] | | + + + + + | REFERENCE LAB | [address] | [place] | [phone] | | [facility] | | [address] | | + + + + + [...] + | REFERENCE LAB | [address] | [place] | [phone] | | [facility] | | [address] | | + + + + + | REFERENCE LAB | [address] | [place] | [phone] | | [facility] | | [address] | | + + + + + [...] + + | REFERENCE LAB | [address] [facility] | [place] | [phone] | | [facility] | | [address] | | + + + + + | REFERENCE LAB | [address] [facility] | [place] | [phone] | | [facility] | | [address] | | + + + + + [...] [address] | [place] | [phone] | | [facility] | | [address] | | + + + + + | REFERENCE LAB | [address] [facility] | [place], [place] | [phone] | | [facility] | | [address] | | + + + + + [...] + + | REFERENCE LAB | [address] [facility] | [place] | [phone] | | [facility] | | [address] | | + + + + + | REFERENCE LAB | [address] [facility] | [place] | [phone] | | [facility] | | [address] | | + + + + + [...] [address] | [place] | [phone] | | [facility] | | [address] | | + + + + + | REFERENCE LAB | [address] | [place] | [phone] | | [facility] | | [address] | | + + + + + [...] + + | REFERENCE LAB | [address] [facility] | [place] | [phone] | | [facility] | | [address] | | + + + + + | REFERENCE LAB | [address] | [place] | [phone] | | [facility] | | [address] | | + + + + + [...] + + + | REFERENCE LAB | [facility] | [place] | [phone] | | [facility] | | [address] | | + + + + + | REFERENCE LAB | [facility] [address] | [place] | [phone] | | [facility] | | [address] | | + + + + + [...] [address] | [place] | [phone] | | [facility] | | [address] | | + + + + + | REFERENCE LAB | [address] | [place] | [phone] | | [facility] | | [address] | | + + + + + [...] + | REFERENCE LAB | [address] | [place] | [phone] | | [facility] | | [address] | | + + + + + | REFERENCE LAB | [address] | [place] | [phone] | | [facility] | | [address] | | + + + + + [...] + + + | REFERENCE LAB | [address] [place] [address] [facility] | [place] | [phone] | | [facility] | | [address] | | + + + + + | REFERENCE LAB | [address] [place] [address] [facility] | [place] | [phone] | | [facility] | | [address] | | + + + + + [...] [address] | [place] | [phone] | | [facility] | | [address] | | + + + + + | REFERENCE LAB | [address] [facility] | [place] | [phone] | | [facility] | | [address] | | + + + + + [...] + + + | REFERENCE LAB | [facility] | [place] | [phone] | | [facility] | | [address] | | + + + + + | REFERENCE LAB | [address] [place] [address] [address] | [place] | [phone] | | [facility] | | [address] | | + + + + + documented in this encounter Visit Diagnoses Not on filedocumented in this encounter"
--- OUTSIDE RECORDS SUMMARY | ~2019-10-16 | XMS | Encounter Summary ---
Demographics + + + | Address | [address] | | | [place] [address] | + + + | Home Phone [...] Team Providers + +------+ + | Care Surveillance Supervisor Name | Role | Phone | [...] | | | head | Rd | [place], [place] | | | | | Infection | [place] | [address] | | | | | and | [address] | Phone: | | | | | inflammatory | Phone: | [phone] | | | | | reaction | [phone] | Fax: | | | | | due to other | Fax: | [phone] | | | | | internal | [phone] | | | | | | prosthetic [...] | | | | | | | ADDRESSING MACHINE OPERATOR | | | | | | | ND REPLACE | | | | | | | SKULL | | | | | | | PLATE/FLAP | | | | | | | ND REPAIR | | | | | | | SKULL | | | | | | | DEFECT,UP TO | | | | | | | 5CM ND | | | | | | | REPAIR SKULL | | | | | | | DEFECT,>5CM | | | +--------+--------+ + + + + Encounter Details +--------+ + + + + | Date | Type | Department | Care Team | Description | +--------+ + + + + | 02/24/ | Press Offbearer | Neurosurgery at | Kari Salinas MD | 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
--- OUTSIDE RECORDS SUMMARY | ~2019-10-16 | XMS | Encounter Summary ---
Demographics + + + | Address | [address] | | | [place] [address] | + + + | Home Phone [...] Team Providers + +------+ + | Care Rn Invasive Name | Role | Phone | + [...] + | 07/10/ | Hospital | [facility] [address] | Machelle Gaines MD | | | 2019 - | Encounter | [address] | [address] | | | | | [id number] [facility] | [facility], | | | 07/13/ | | [facility], | [place] [address] | | | 2019 | | [place] [address] | [phone] | | | | | [phone] | | | | | | | Adolfo Urbina MD | | | | | | [address] | | | | | | [place], [place] | | | | | | [address] | | | | | | [phone] | | | | | | | [...] MD PCP: Mary Vazquez PA-C Service: [facility] Neurosurgery Diagnoses Principal Final Diagnosis: Wound dehiscence. [...] Discharging Attending: MD Marni Beck PA-C [facility] 10K [address] [facility] [address]kp[address] [place] [address] documented in t his encounter [...] Vazquez PA-C Admission Date: 07/10/2018 GLORIA BELL, [id number] Hospital Day #3 PROCEDURES: Dr. White (ENT) [...] and Neck Surgery [facility] Pager [phone] Marni Gallardo PA-C - 07/12/2018 1:11 PM [...] 5/5 equal b/l No Pronator Drift No gsbnmb-tu-djqm dysmetria nor ataxia SILT Incision c/d/i. Nylons [...] at bedside (suture) She presents to [facility] with wound dehiscence and exposed hardware now [...] 24-28hr. Marni Manning PA-C Neurological Surgery Pg [phone] Steven Piña PA-C - 07/12/2018 8:07 AM PDTFormatting of this note might be different from the reba naik. DOS: 07/12/2018 Head and Neck Surgery Inpatient Daily Progress Note: Primary Care Provider: Mary Vazquez PA-C Admission Date: 07/10/2018 GLORIA BELL, [id number] Hospital Day #2 PROCEDURES: Dr. White (ENT) [...] PA-C Otolaryngology-Head and Neck Surgery [facility] Pager [phone] ossVickie MD, MPH - 07/11/2018 3:52 PM [...] Please contact the Neurosurgery resident on-call pager [phone] with questions or concerns. Vickie Estrada M.D., M.P.H. R2 Resident Physician Neurological Surgery Pager: [phone] signed by Vickie Estrada MD,MPH at 07/11/2018 [...] of the implant. Ata White MD MW/MODL /[id number] signed by Ata White MD at 07/11/2018 3:28 PM PDTAngie Moreno PA-C - 07/11/2018 9:30 AM PDT DOS: 07/11/2018 Head and Neck Surgery Inpatient Daily Progress Note: Primary Care Provider: Mary Vazquez PA-C Admission Date: 07/10/2018 GLORIA MARSHA ONOFRE, [id number] Hospital Day #1 SUBJECTIVE INTERVAL EVENTS: To [...] PA-C Otolaryngology-Head and Neck Surgery [facility] Pager [phone] Nettie Knowles PA - 07/11/2018 6:39 AM [...] [facility]. Culture: Rare Methicillin resistant Staphylococcus aureus Final ID MRSA Cefazolin R Clindamycin S Erythromycin R Oxacillin R Penicillin R Tetracycline S Trimeth/Sulfa S Vancomycin S Final Report Comment: Test performed at [facility]. 03/07/2008 Corrected CSF Culture Source...............: Cerebrospinal Fluid RLB Gram Stain...........: Gram smear performed at [facility]. Culture: Final Report: No growth after 3 days. Final Report Comment: Test performed at [facility]. 03/03/2008 Corrected CSF Culture Source...............: Cerebrospinal Fluid RLB Gram Stain...........: Gram smear performed at [facility]. Culture: Final Report: No growth after 3 days. Final Report Comment: Test performed at [facility]. 03/03/2008 Corrected Wound Culture Source...............: Skin Abscess RLB Gram Stain...........: Rare Squamous epithelial cells Rare PMN's Rare Gram positive cocci Culture: 1+ Methicillin resistant Staphylococcus aureus Final ID MRSA Cefazolin R Clindamycin S Erythromycin R Oxacillin R Penicillin R Tetracycline S Trimeth/Sulfa S Vancomycin S Final Report Resulted: 03/05/08 RLB ([facility]) [facility] [address] [place] [address] Comment: Test performed at [facility]. CULTURE RESULT Date Value Ref [...] at bedside (suture) She presents to [facility] with wound dehiscence and exposed hardware. Plan for surgery today vi a explant of cranioplasty and primary wound closure by Dr White. PLAN: OR today for cranioplasty explant and primary wound closure. Anticipate return to 10K post op. NPO. Resume lisinopril post op. Continue atorvastatin, spironolactone, metoprolol. Nicotine patch. Post operative wound care per ENT. ANSON MULLINS [facility] [address]K [address] [address] [address] Doug Dhaliwal M D - 07/10/2018 3:38 [...] Please contact the Neurosurgery resident on-call pager [phone] with questions or concerns. Vickie Estrada M.D., M.P.H. R2 Resident Physician Neurological Surgery Pager: [phone] signed by Doug Aponte MD at 07/10/2018 8:01 PM PDTdocutrina cintron in this encounter Procedure Notes Adolfo Urbina MD - 07/11/2018 3:24 PM PDTAssociated Order(s): OPERATION RECORDDate of Serv ice: 07/11/2018 Attending Surgeon: Adolfo Urbina MD Bioinformatics Specialist(s): Kari Cavazos MD Preoperative Diagnoses: 1. Wound [...] imaging. Initial Surgical Contact: Neurosurgery at pager [phone]. Indications For Procedure: Please see [facility] for full details, but briefly, Marisela [...] desiring cranioplasty for cosmetic reasons. We did addiction counselor her that she may require a [...] back to the operating room on a [facility]. She was intubated without difficult y [...] correct x2. MD Adolfo Emmanuel MD JLG/NGUYEN /[id number] aAta michael MD - 07/12/19 2:21 PM [...] up, woken up, extubated and sent to [facility] recovery room. Ata White MD MW/MODL /[id number] signed by Ata White MD at 07/11/2018 [...] above Past Histories Allergies: Allergies Allergen Reactions Webb Tar Hives Betadine [Povidone-Iodine (With Soap)] Rash Cipro [Ciprofloxacin] Nausea and Vomiting Codeine Hcl Nausea and Vomiting Sulfa (Sulfonamide Antibiotics) Erythema Past Surgical History Procedure Laterality Date Partial thyroidectomy Right Hysterectomy Bladder suspension 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 Director Of Technology shunt Tympanoplasty Right 1987 Lumpectomy of left breast 1979 Coronary stent placement 12/28/2014 status post stent placement in the mid LAD Removal of vp account director shunt Cholecystectomy Past Medical History: Diagnosis Date Abnormal LFTs (liver function tests) CAD in [place] artery s/p NSTEMI 12/27/2014; status post stent [...] for input(s): FIO2, PH, PCO2, PO2, HCO3, SFEWT2JJN, Y1TTBRDO, K8WMDFFVT in the l ast 720 hours. CSF [...] [facility]. Culture: Rare Methicillin resistant Staphylococcus aureus Final [...] primary closure Doug Aponte MD Neurosurgery PGY2 64589 Risk and Morbidity Patient Risk Modifiers - Including but not limited to. Age: 68 y.o. female DNR: Prior Transfer status/urgency : From Outside Hospital : From [facility] ER: Symptom Onset: Less than 12 hours [...] Best Eye Response: 4-->(E4) spontaneous (07/10/18920) Score ([place] Coma Scale): 15 (07/10/18920) Comatose State: If GCS<9 Then patient by definition is in a comatose state Score ([place] Coma Scale) Min: 15 Max: 15 Loss [...] weeks. Continuous tobacco abuse Coronary arteriosclerosis in lytton artery 03/06/2015 History of non-ST elevation myocardial [...] additions o r exceptions. Adolfo Urbina MD Meat Cutter Apprentice - Skull base and Cerebrovascular Neurosurgery Department of Neurological Protein ChemistMeat Cutter Apprentice - Interventional Neuroradiology Alex Ochoa Department of Interventional Radiology [facility] Mel Blanca MD - 07/10/2018 9:34 [...] ruptured aneurysm (HCC) 2007 Goiter CAD in [place] artery s/p NSTEMI 12/27/2014; status post stent placement in the mid LAD Abnormal LFTs (liver function tests) MRSA (methicillin resistant staph aureus) culture positive post cariotomy for SAH Hemorrhagic stroke (HCC) 2007 aneurysm PONV (postoperative nausea and vomiting) Past Surgical History Procedure Date Partial thyroidectomy Hysterectomy Bladder suspension 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 Director Of Technology shunt Tympanoplasty 1987 Lumpectomy of left breast 1979 Coronary stent placement 12/28/2014 status post stent placement in the mid LAD Removal of vp account director shunt Cholecystectomy Social History Tobacco Use Smoking status: Current Every Day Smoker Packs/day: 1.00 Years: 50.00 Pack years: 50.00 Types: Cigarettes Smokeless tobacco: Never Used Tobacco comment: Substance Use Topics Alcohol use: No Alcohol/week: 0.0 oz Drug use: No Family History Problem Relation Additional Family History Mother dementia Cancer Father brain Cancer Brother lung Allergies Allergen Reactions Webb Tar Hives Betadine [Povidone-Iodine (With Soap)] Rash [...] Resident Physician, PGY1 Otolaryngology, H&N Surgery Pager [phone] Associated attestation - Ata White MD - [...] weeks. Continuous tobacco abuse Coronary arteriosclerosis in [place]yt[place] artery 03/06/2015 History of non-ST elevation myocardial [...] ruptured aneurysm (HCC) 2007 Goiter CAD in [place] artery s/p NSTEMI 12/27/2014; status post stent placement in the mid LAD Abnormal LFTs (liver function tests) MRSA (methicillin resistant staph aureus) culture positive post cariotomy for SAH Hemorrhagic stroke ([facility]) 2007 aneurysm PONV (postoperative nausea and vomiting) Past Surgical History Procedure Date Partial thyroidectomy Hysterectomy Bladder suspension 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 Director Of Technology shunt Tympanoplasty 1987 Lumpectomy of left breast 1979 Coronary stent placement 12/28/2014 status post stent placement in the mid LAD Removal of vp account director shunt Cholecystectomy Medications Prior to Admission Medications [...] daily. Facility-Administered Medications: None Allergies Allergen Reactions Webb Tar Hives Betadine [Povidone-Iodine (With Soap)] Rash [...] Discussed this case with neurosurgery resid ent business operations consultant and they will accept to their service. Given no fevers and hemodynamically stabl e, no indication for empiric antibiotics at this point. Spoke with ENT business operations consultant who did the procedure last month, they [...] co-wrote the ED Provider Note using the Miroi share function. I agree with the documentation [...] d aneurysm (HCC) 2007, Goiter, CAD in [place] artery s/p NSTEMI 12/27/2014; status post stent [...] - 07/12/2018 5:14 PM PDTNursing Handoff [facility] IP [...] d aneurysm (HCC) 2007, Goiter, CAD in [place] artery s/p NSTEMI 12/27/2014; status post stent [...] - 07/12/2018 2:07 PM PDTNursing Handoff [facility] IP [...] Daily Goal: increase fluids (07/11/18 2330) [facility] IP [...] of new implant. She presents to [facility] today with exposed synthetic bone flap and [...] pain medication information: none Functional Epidural: N/A SOFT SUGAR SUPERVISOR: N/A Respiratory: RR: 15 , O2 Sat: 92 % , O2 Delivery: Nasal cannula Breath Sounds: Ex DARIEN: LLL: RUL: RLL: MELISSA No Comment: persistent cough and has COPD Cardiac: BP: 106/47 HR: 71 GI: Nausea/Vomiting Status: Yes- Signs/Symptoms: intermittent nausea Interventions: antiemetic given Assessment: relief of signs/symptoms Comments: resolved : Last void: preop Contact Name: Feb Contact Number: [phone] Family contacted: Yes Comment: no answer Belongings: [...] imaging Initial surgical contact: neurosurgery at pager [phone] Patient Lines/Drains/Airways Status Active Lines, Drains and [...] Daily Goal: get rest (07/11/18 0005) [facility] IP [...] of new implant. She presents to [facility] today with exposed synthetic bone flap and [...] Daily Goal: prepare for surgery tomorrow (07/10/18 4364) [facility] IP [...] of new implant. She presents to [facility] today with exposed synthetic bone flap and [...] Attending | | Surgeon: Adolfo Urbina MD Bioinformatics Specialist(s): Kari Cavazos MD | | Preoperative Diagnoses: [...] Surgical Contact: Neurosurgery | | at pager [phone].Indications For Procedure: Please see Epic for full [...] desiring cranioplasty for cosmetic reasons. We did addiction counselor her that | | she may [...] brought back to the operating room on [facility]. She was | | intubated without [...] 07/11/2018 15:04:23DT: 07/11/2018 | | 15:24:02Job #: [id number] | | | |Indications For Procedure: Please see [facility] for full details, but briefly, Marisela [...] plasty for cosmetic reasons. We did | |addiction counselor her that she may require a [...] back to the operating room on a [facility]. She was intubated without difficult y [...] |JLG/MODL | | | | | | /[id number] | + + CAPILLARY BLOOD GLUCOSE (NO [...] + | MICHELLE Ol[facility] | [address] | [place], [place] | | | [facility] | [address] | [address] | | | TESTS | | | [...] | MELI/KATHERINED: 07/11/2018 14:09:26DT: 07/11/2018 14:21:09Job #: [id number] | | | | | |Ata White MD | |CHANDRIKA/NGUYEN | | | | | | /[id number] | + + CULTURE, FUNGAL EXCEPT BLOOD, [...] + | [facility] | [address] | [place] [address] | | | [place] | | | [...] + | [facility] | [address] | [place] [address] | | | [place] | | | | + + + [...] | + + + + + | [facility] | [address] | [place] [address] | | | [place] | | | | + + + [...] [facility] | [address] | [place] [address] | | | SERVICES, CORE | PARK [...] | + + + + + | [facility] | [address] | [place] [address] | | | SERVICES, CORE | RAMSES [...] [facility] | [address] | [place] [address] | | | SERVICES, CORE | PARK [...] [facility] | [address] | [place] [address] | | | [facility] | RAMSES [...] [facility] | [address] | [place] [address] | | | SERVICES, RYAN | RAMSES [...] | | | LABORATORY | | | [place] | | | SERVICES, | | | [...] | [facility] | [address] | [place] [address] | | | SERVICES, CORE | RAMSES [...]
--- OUTSIDE RECORDS SUMMARY | ~2019-10-16 | XMS | Encounter Summary ---
Demographics + + + | Address | [address] | | | [place] [address] | + + + | Home Phone [...] Providers + +------+ + | Care Transcription Typist Name | Role | Phone | + [...] | Surgery Services at | [address] [place], | | | | | [facility] [address] | [place] [address] | | | | | [facility] | [phone] | | | | | Health and Healing, | | | | | | [address] | | | | | | [place], [place] | | | | | | [address] | | | | | | [phone] | | | +--------+ + + + [...] - 09/14/2018 8:26 AM PDTPatient [facility] to [facility] elep veronica Encounter - [...] Good # to reach Florecita at is [phone] Photos sent via email to Dr. White and Ezequiel Heine documented in this encounter Plan of Treatment Not on filedocumented as of this encounter Visit Diagnoses Not on filedocumented in this encounter
--- OUTSIDE RECORDS SUMMARY | ~2019-10-16 | XMS | Encounter Summary ---
Demographics + + + | Address | [address] | | | [place] [address] | + + + | Home Phone [...] Team Providers + +------+ + | Care Wash House Worker Name | Role | Phone | [...] | | | [facility] | [place], [place] | (Subarachnoid | | | | Health and Healing, | [address] | Hemorrhage) ([facility]) | | | | [facility] | [phone] | | | | | floor [place], [place] | | | | | | [address] | | | | | | [phone] | | | +--------+---------+ + + + [...] lady with history of clipping aneursm and evp managing director shunt placement for hydrocephalus is back to clinic for followup. She is complaining of headache and N/V. Her abdominal and neck incisions are red and not lo oking good. We will tap shunt to make sure CSF is clean. They agreed with this plan. 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
--- OUTSIDE RECORDS SUMMARY | ~2019-10-16 | XMS | Encounter Summary ---
Demographics + + + | Address | [address] | | | [place] [address] | + + + | Home Phone | | + + + | Preferred Language | Unknown | + + + | Marital Status | | + + + | Temple Affiliation | Unknown | + + + [...] Providers + +------+ + | Care Supervisor Building Maintenance Name | Role | Phone | + +------+ + | Lance Pandya DO | PCP | | + +------+ + Reason for Visit +--------+--------+ + | Reason | Onset | Comments | | | Date | | +--------+--------+ + | Other | 01/10/ | Procedure Inquiry | | | 2014 | | +--------+--------+ + Encounter Details +--------+ + + + + | Date | Type | Department | Care Team | Description | +--------+ + + + + | 01/10/ | Telephone | [facility] | Chana Luu, | Noe (Procedure | | 2014 | | CARDIOLOGY [address] | MD [address] | Inquiry ) | | | | [place], | [place], [place] | | | | | [place] [address] | [address] | | | | | [phone] | | | +--------+ + + + [...] Telephone Encounter - Lucille Costa RN - 01/14/2015 2:48 PM PSTAshmeche notified ....... ....................................Lucille Costa RN on 01/14/15 at 14:48 elephone Encounter - Lucille Costa RN - 01/14/2015 2:16 PM PSTLeft message for Kati Larson to ret urn my call ...........................................Lucille Costa RN on 01/14/15 at 14 :18 elephone Encounter - Chana Luu MD - 01/14/2015 2:05 PM PSTUnless this is an emergency she should not have surgery, or general anesthesia until follow up. elephone Encounter - Lucille Costa RN - 01/13/2015 11:13 AM PSTKati called again to find out whether they would be ok to proceed or not. I will r oute this to Dr Luu to see if she can review and advise. .............................. .............Lucille Costa RN on 01/13/15 at 11:14 elephone Encounter - Nataliya Schuster RN - 01/10/2015 2:42 PM PSTMarsha GRIGGS called about Cielo vear, who is a patient of theirs at [facility]. Marhsa says that Cielo has "hardware migrat ing through the skin on her cranium," which can be resolved through a small forehead incisio n under general anesthesia. Marsha wants to consult Dr. Luu or the appropriate card iologist about allowing this procedure to occur. She states it is not emergent, but she is aware that Cielo is on dual antiplatelet therapy and also underwent a recent catheterizatio n with Dr. Luu, and will not proceed without a consultation. Will consult Dr. Luu and return Marsha's call. Marsha is creating an encounter for this, and requests oni t we notify her via this created encounter. She may also be reached at [phone]. Nataliya Schuster RN 01/10/2015 14:47 documented in thi s encounter Plan of Treatment Not on filedocumented as of this encounter Visit Diagnoses Not on filedocumented in this encounter
--- OUTSIDE RECORDS SUMMARY | ~2019-10-16 | XMS | Encounter Summary ---
Demographics + + + | Address | [address] | | | [place] [address] | + + + | Home Phone [...] | | | | REQUEST TO | [facility] | [place], [place] | | | | | SURGERY | Rd | [address] | | | | | CLOTH PAINTER | [place], [place] | Phone: | | | | | | [address] | [phone] | | | | | | Phone: | Fax: | | | | | | [phone] | [phone] | | | | | | Fax: | | | | | | | [phone] | | +--------+--------+ + + + + [...] | | | | | | | [place], [place] | | | | | | | [address] | | | | | | | Phone: | | | | | | | [phone] | | | | | | | Fax: | | | | | | | [phone] | | +--------+--------+ + + + + [...] | | | [facility] | [place], [place] | | | | | Health and Healing, | [address] | | | | | Building [address] | [phone] | | | | | floor [place], [place] | | | | | | [address] | | | | | | [phone] | | | +--------+---------+ + + + [...] vers/chills, ZULUAGA, N/V. 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 I spent more than 15 minutes hpkt-sk-suoc with the patient of which greater than [...] issues or concerns arise. Paramjit Huber MD Neon Sign Mechanic Director, Cerebrovascular and Skull Base Surgery Department of Neurological Surgery and Interventional Neuroradiology [address] [place] [address] documented in this encou nter Plan of [...] | | | | | | approach BASKETBALLS AND FOOTBALLS REVERSER shunt | | | | | | [...] frontalapproach | | | | | | BASKETBALLS AND FOOTBALLS REVERSER shunt catheter with | | | | [...]
--- OUTSIDE RECORDS SUMMARY | ~2019-10-16 | XMS | Encounter Summary ---
Demographics + + + | Address | [address] | | | [place] [address] | + + + | Home Phone [...] Providers + +------+ + | Care Industrial Engineering Intern Name | Role | Phone | + [...] | | | | | | [facility] | | [facility] Admitting | | | | | | Desk Located on the | | | | | | 9th floor | | | | | | [place], [place] | | | | | | [address] | | | +--------+ + + + [...]
--- OUTSIDE RECORDS SUMMARY | ~2019-10-16 | XMS | Encounter Summary ---
Demographics + + + | Address | [address] | | | [place] [address] | + + + | Home Phone | | + + + | Preferred Language | Unknown | + + + | Marital Status | | + + + | Anglican Affiliation | Unknown | + + + | Race | White | + + + | Ethnic Group | Not or | + + + Author + + + | Author | [facility] | | | and [place] | + + + | Organization | [facility] | | | [...] Team Providers + +------+ + | Care Launch Commander [employer] Police Name | Role | Phone | + [...] [address] | | | | | [place], | [place] | | | | | [place] [address] | [address] | | | | | [phone] | | | +--------+--------+ + + + [...]
--- OUTSIDE RECORDS SUMMARY | ~2019-10-16 | XMS | Encounter Summary ---
Demographics + + + | Address | [address] | | | [place] [address] | + + + | Home Phone [...] Team Providers + +------+ + | Care Outreach Coordinator Name | Role | Phone | + +------+ + | No Pcp Per Patient | PCP | Unavailable | + +------+ + Reason for Visit + +--------+ + | Reason | Onset | Comments | | | Date | | + +--------+ + | Infusion | 12/21/ | Patient asking about infusion for 12/23 | | | 2017 | | + +--------+ + | Infectious disease | 12/21/ | | | | 2017 | | + +--------+ + Encounter Details +--------+ + + + + | Date | Type | Department | Care Team | Description | +--------+ + + + + | 12/21/ | Telephone | Infectious | Kristen Goss, | Infusion (Patient | | 2017 | | Diseases at [facility] | RN [address] | asking about | | | | [address] | [address] | infusion for 12/23); | | | | Loop Physician's | [place] | Infectious disease | | | | [place], [facility] floor | [address] | | | | | [place], [place] | [phone] | | | | | [address] | | | | | | [phone] | | | +--------+ + + + [...] Miscellaneous Notes Telephone Encounter - Kristen Goss, ALEKSANDAR - 12/22/2017 2:02 PM PDTSpoke with patient carla bowers where to check in tomorrow evening at [facility] for her infusion. Patient verbalize d that she thinks it is disappointing that a city the size of [place] cannot accommodate he r infusion. I did say that the constraints of her 3 appointments on the rye made it more di fficult. I asked if she was amenable to going to [facility] once she returns home, which w ill actually only be 1-2 hours after her normal dosing time. I encouraged the patient to moody k with Dr. Nicolas about her dose for tomorrow if she would like to. Kristen Goss RN elephone Encounter - Rosalina Lopez RN - 12/21/2017 3:23 PM PDTSpoke with Katelyn at day surgery infusion unit at [facility] who confirmed that pt can have late dose administered on 12/23/17 o n another unit in the hospital. Pt will have to check in at admitting who will then call e nursing supervisor fabrication so she can be escorted to appropriate floor for infusion. Called pt to discuss with her, LM on cell and home phones. Rosalina Lopez RN elephone Encounter - Kristen Goss RN - 12/21/2017 1:54 PM PDTPatient called because she has multiple appointments on 12/23 and she is driving from [place] (3 hour trip). I told h er that I will ask the MD covering for Dr. Nicolas what the preference is. I also said that i f one dose is missed that it will be ok as her OPAT course is long. Both [facility] and [facility] do not have availability and [facility] closes before the patient could get there in the afternoon. Dr. Nicolas/Kristy: Are you ok with the patient missing her dose on 12/23 if her local hospit al can not accommodate her? Kristen Goss RN documented in this en counter Plan of Treatment Not on filedocumented as of this encounter Visit Diagnoses Not on filedocumented in this encounter"
--- OUTSIDE RECORDS SUMMARY | ~2019-10-16 | XMS | Encounter Summary ---
Demographics + + + | Address | [address] | | | [place] [address] | + + + | Home Phone [...] Team Providers + +------+ + | Care Central Office Supervisor Name | Role | Phone | [...] | | | Ave [facility] for | [place], [place] | (Subarachnoid | | | | Health and Healing, | [address] | Hemorrhage) ([facility]) | | | | [facility] | [phone] | | | | | floor [place], [place] | | | | | | [address] | | | | | | [phone] | | | +--------+---------+ + + + [...] with history of clipping aneursm and vp platforms shunt placement for hydrocephalus is back to clinic for followup. She is complaining of headache and N/V. Her abdominal and neck incisions are red and not lo oking good. We will tap shunt to make sure CSF is clean. They agreed with this plan. 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
--- OUTSIDE RECORDS SUMMARY | ~2019-10-16 | XMS | Encounter Summary ---
Demographics + + + | Address | [address] | | | [place] [address] | + + + | Home Phone [...] Team Providers + +------+ + | Care Acid Tank Liner Name | Role | Phone | + [...] Galarza | | | | | [facility] | [address] | | | | | Hospital Admitting | [place], [place] | | | | | Desk Located on the | [address] | | | | | 9th floor | [phone] | | | | | [facility] [place] | | | | | | [address] | Hemanth Edward CRNA | | | | | | [address] | | | | | | [place]ora [place], | | | | | | [place] [address] | | | | | | [phone] | | | | | | | [...] | Cathet | prior [facility]); 1000 | | | | er | | | | +--------+ + + + | Periph | 10/23/15; 829; Hemanth Edward KNOCKUP WORKER; | 10/23/15829 by | 10/24/15929 by | [...] Notes Anesthesia Postprocedure Evaluation - Hemanth Edward, KNOCKUP WORKER - 10/23/2015 10:48 AM PDTFormatti jesus of this note might be different from the original. Cielo Bell [id number] Allergies Allergen Reactions [place] Tar Hives Betadine [Povidone-Iodine (With Soap)] Unknown Cipro [Ciprofloxacin] Nausea and Vomiting Codeine Hcl Nausea and Vomiting Sulfa (Sulfonamide Antibiotics) Erythema Past Surgical History Procedure Laterality Date Partial thyroidectomy Right Hysterectomy Cholecystecomy Bladder suspension 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 Undercollar Maker shunt Tympanoplasty Right 1987 Lumpectomy of left [...] nesthesia Preproc edure Evaluation - Hemanth Edward, KNOCKUP WORKER - 10/23/2015 7:14 AM PDTFormatting of this note migh t be different from the original. Cielo Bell [id number] Allergies Allergen Reactions [place] Tar Hives Betadine [Povidone-Iodine (With Soap)] Unknown [...] Bladder suspension 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 Undercollar Maker shunt Tympanoplasty Right 1987 Lumpectomy of left [...] Date RATE 81 10/03/2015 ATRIALRATE 190 10/03/2015 LA 176 10/03/2015 QRS 80 10/03/2015 QT 388 10/03/2015 QTC 462 04/12/2008 PAXIS 68 10/03/2015 RAXIS -62 10/03/2015 TAXIS 114 10/03/2015 EKGDX 04/12/2008 Normal sinus rhythm Normal ECG "I have personally interpreted this report, either alone or with a trainee." Confirmed by KAREN ROMERO ([id number]) on 12-Apr-2008 15:40:13 Preoperative Adult Anesthesia Plan Last edited 10/03/15 7570 by Mable Lee MD ROS Pertinent HPI: [...] - normal Turgor: turgor normal Implants: None, 0716 Anesthesia Plan Comments ASA ASA 3 NPO [...]
--- OUTSIDE RECORDS SUMMARY | ~2019-10-16 | XMS | Encounter Summary ---
Demographics + + + | Address | [address] | | | [place] [address] | + + + | Home Phone [...] Team Providers + +------+ + | Care Apple Checker Name | Role | Phone | [...] | | | Surgery Services at | [address] [place], | (Primary Dx) | | | | [facility] [address] | [place] [address] | | | | | [address] | [phone] | | | | | Physician's | | | | | | Pavilion, 2nd floor | | | | | | [place], [place] | | | | | | [address] | | | | | | [phone] | | | +--------+---------+ + + + [...] next she comes in. MD CHANDRIKA Hansen/NGUYEN /[id number] signed by Ata White MD at 12/26/2017 9:20 AM Ata Siddiqui MD - 12/23/2017 2:45 PM PDTDictation #1 [id number] signed by Ata White MD at 12/23/2017 3:15 PM PDTdocumented in this en counter Plan of Treatment Not on filedocumented as of this encounter Visit Diagnoses + + | Diagnosis | + + | History of cranioplasty - Primary | + + documented in this encounter"
--- OUTSIDE RECORDS SUMMARY | ~2019-10-16 | XMS | Encounter Summary ---
Demographics + + + | Address | [address] | | | [place] [address] | + + + | Home Phone [...] Team Providers + +------+ + | Care Admissions Manager Rn Name | Role | Phone | + [...] + + | 04/29/ | Emergency | [facility] Emergency | Jim Smith MD | | | 2008 | | Department [address] | [address] | | | | | [address] | [address] [place], | | | | | [facility] | [place] [address] | | | | | [place], [place] | [phone] | | | | | [address] | | | | | | [phone] | | | +--------+ + + + [...] use over the counter antihistamines such as Bartow dryl (diphenhydramine) in a dosage as recommended [...] your wound rechecked. ExitCare Patient Information 2006 MusicIP. documented in this encounter H&P Notes Krystle [...] CHEST AND ABD 2 VIEWS - Value: IT SERVICE DELIVERY MANAGER SHUNT SERIES COMPARISON: NONE FINDINGS: Multiple views [...] nella:
Means of arrival:
Comments:
[facility] Linda Alva - 04/29/2008 5:46 PM PDTPt [...] stop for shunt placement. Pt returned to [facility] today for eval and was referred to ED by neur osurgery because "the shunt didn't look good". Hx of surgery for brain aneurysm last September . Pt states the shunt incisions on R neck and abd itched and she scratched them. Incisions are erythemic and warm to touch. No exudate. Denies blurred vision. CSM intact in extrem ities x 4. Casper stroke scale neg. Skin pwd. Pt BONILLA [...] | + + + + + | [facility] | [address] | [place] [address] | | | PATHOLOGY | [address] | | | + + + + + | [facility] | [address] | [place] [address] | | | PATHOLOGY | [address] [...] + | [facility] DEPARTMENT | [address] | [place] [address] | | | PATHOLOGY | [address] | | | + + + + + | [facility] | [facility] [address] | [place] [address] | | | PATHOLOGY | [address] [...] + | [facility] DEPARTMENT OF | [facility] [address] | [place] [address] | | | PATHOLOGY | [address] | | | + + + + + | [facility] DEPARTMENT OF | [facility] [address] | [place] [address] | | | PATHOLOGY | [address] [...] at | | | | | | [facility]. Culture: | | | | [...] | | | | | performed at [place] | | | | | | [facility] | | | | | | Laboratory. | | | | + + + + + + + + | Specimen | + + | Cerebrospinal fluid | + + + + + + + | Performing | Address | City/State/Zipcode | Phone Number | | Organization | | | | + + + + + | [facility] | [address] | [place] [address] | | | LAB-MICRO | | | [...] + | [facility] DEPARTMENT OF | [address] | [place] [address] | | | PATHOLOGY | [address] | | | + + + + + | [facility] DEPARTMENT OF | [address] | [place] [address] | | | PATHOLOGY | [address] [...] | + + + + + | [facility] | [address] | [place] [address] | | | PATHOLOGY | [address] | | | + + + + + | [facility] | [address] | [place] [address] | | | PATHOLOGY | [address] [...] | | + +---------+ + + | [facility] DEPARTMENT OF | | | [...] + + + | X-RAY SHUNT | IT SERVICE DELIVERY MANAGER SHUNT | | | | | EVAL [...] | | | | | | report.Author: JULEITTE | | | | | | Narinder [...]
--- OUTSIDE RECORDS SUMMARY | ~2019-10-16 | XMS | Encounter Summary ---
Demographics + + + | Address | [address] | | | [place] [address] | + + + | Home Phone [...] Team Providers + +------+ + | Care Taste Tester Name | Role | Phone | [...] | | | | Loop Physician's | [place], [place] | | | | | [place], [facility] floor | [address] | | | | | [place], [place] | [phone] | | | | | [address] | | | | | | [phone] | | | +--------+ + + + [...]
--- OUTSIDE RECORDS SUMMARY | ~2019-10-16 | XMS | Encounter Summary ---
Demographics + + + | Address | [address] | | | [place] [address] | + + + | Home Phone [...] Team Providers + +------+ + | Care Proof Press Operator Name | Role | Phone [...] Ave | | | | | [facility] | [place], [place] | | | | | Health and Healing, | [address] | | | | | [facility] | [phone] | | | | | floor [place], [place] | | | | | | [address] | | | | | | [phone] | | | +--------+ + + + [...]
--- OUTSIDE RECORDS SUMMARY | ~2019-10-16 | XMS | Encounter Summary ---
Demographics + + + | Address | [address] | | | [place] [address] | + + + | Home Phone [...] Team Providers + +------+ + | Care Economics Faculty Member Name | Role | Phone | + [...] | | | | | | [place] [address] | 2nd floor | | | | | | Phone: | [place], [place] | | | | | | [phone] | [address] | | | | | | Fax: | Phone: | | | | | | [phone] | [phone] | | | | | | | Fax: | | | | | | | [phone] | +--------+--------+ + + + + Encounter [...] | | | Surgery Services at | [facility] [address] | glands (Primary Dx) | | | | [facility] [address] | [place], [place] | | | | | [address] | [address] | | | | | Physician's | [phone] | | | | | [place], [facility] floor | | | | | | [place], [place] | | | | | | [address] | | | | | | [phone] | | | +--------+---------+ + + + [...] suspension 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 Machine Shorthand Teacher shunt Right tympanoplasty (2-3 decades ago per [...] Supple, intact ROM; no thyroid masses palpable. 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
--- OUTSIDE RECORDS SUMMARY | ~2019-10-16 | XMS | Encounter Summary ---
Demographics + + + | Address | [address] | | | [place] [address] | + + + | Home Phone [...] Team Providers + +------+ + | Care Sales Account Leader Name | Role | Phone | [...] | | | | | | | [address] | | | | | | | [id number] | | | | | | | [facility] | | | | | | | [place], | | | | | | | [place] [address] | | | | | | | Phone: | | | | | | | [phone] | +--------+--------+ + + + + Encounter Details +--------+ + + + + | Date | Type | Department | Care Team | Description | +--------+ + + + + | 04/11/ | Hospital | [facility] [address] | Paramjit Huber MD | | | 2008 - | Encounter | [address] | [address] | | | | | [id number] [facility] | [place], [place] | | | 04/13/ | | HOSPITAL [place], | [address] | | | 2008 | | [place] [address] | [phone] | | | | | [phone] | | | +--------+ + + + [...] Diagnosis: Hydrocephalus Additional Diagnoses: None Principal Procedure: STOCK HOLDER Shunt Placement Reason for Admission, Significant Findings, Treatment, and Complications Brief Hospital Course: Cielo Bell is a 58 y.o. female who was admitted for the aforementioned operation. (Ple ase see the operative report for full details of the procedure). Post-operatively the patien vijay was transferred to the cooper and did well. On POD 1, the patient was seen by geophysical prospector apy and then by occupational therapy to [...] call and ask for the Neurosurgery resident media/instructional designer if you have any of the following: [...] follow-up appointment with Dr. Huber at the [facility] on the 8th floor of the [facility]: Please call to make or confirm your appointment for [...] extremitiy flexors and extensors as well as ese teacher and intrinsic muscles of the hand, 5/5 [...] Final Diagnosis: Hydrocephalus Additional Diagnoses: Principal Procedure: STOCK HOLDER Shunt Placement Reason for Admission, Significant Findings, Treatment, and Complications Brief Hospital Course: Cielo Bell is a 58 y.o. female who was admitted for the aforementioned operation. (Ple ase see the operative report for full details of the procedure). Post-operatively the patien t was transferred to the cooper and did well. On POD 1, the patient was seen by geophysical prospector apy and then by occupational therapy to [...] call and ask for the Neurosurgery resident media/instructional designer if you have any of the following: [...] follow-up appointment with Dr. Huber at the [facility] on the 8th floor of the [facility] and [facility]: Please call [phone] to make or confirm your appointment for [...] extremitiy flexors and extensors as well as ese teacher and intrinsic muscles of the hand, 5/5 [...] AM Discharging Attending: MD CHOCO Woods MD [address] [address] [address] INPATIENT NURSE ORDER FOR DISCHARGE AND INTERDISCIPLINARY [...] Mode of Transportation: Car Accompanied by: Family/Responsible Alliance Party Discharge Nurse: Digna Juan Date: 04/13/2008 [...] extremitiy flexors and extensors as well as ese teacher and intrinsic muscles of the hand, 5/5 [...] extremitiy flexors and extensors as well as ese teacher and intrinsic muscles of the hand, 3/5 [...] a 58 y.o. female status post right STOCK HOLDER shunt this morning for communica ting hydrocephalus. The patient is currently in Good condition. There were not abnormal lab values, and treatment at this time will consist of routine post-operative care.. [facility] for patient to [...] She was made NPO at midnight w [facility]. She had some difficulty sleeping last night. [...] extremitiy flexors and extensors as well as ese teacher and intrinsic muscles of the hand, 5/5 [...] SAH Postoperative Diagnosis: same Procedure Performed: Right STOCK HOLDER shunt Estimated Blood Loss: 25 ml Fluids: crystalloid Specimens: none Complications: none Drains: none Disposition: PACU Findings: Csf under moderate pressure ther, Faculty - 009 12:00 AM PSTAssociated Order(s): ANESTHESIA/SEDATION; ANESTHESIA/SEDATION To Prieto MD - 04/12/2008 12:00 AM PSTAssociated Order(s): OPERATION RECORD; OPERATION RECORD [id number] [place] [id number] Date: 04/12/2008 Attending Surgeon: Paramjit Huber M.D. Account Manager Trainee(s): To Prieto M.D. Kamari Cha M.D., Ph.D. [...] M.D. Paramjit Huber M.D. HS / ELINA [id number] / [id number] / [id number] / Alyssa Rosen - 04/12/2008 12:00 AM PSTAssociated Order(s): ANESTHESIA/SEDATION; ANESTHESIA/SEDATION Paramjit Huber MD - 04/12/2008 12:00 AM PSTAssociated Order(s): TEACHING PHYSICIAN; TEACHING PHYSICIAN 01 [id number] [place] [id number] Date: 04/12/2008 Attending Surgeon: Paramjit Huber M.D. Account Manager Trainee(s): Kamari Cha M.D., Ph.D. To Prieto M.D. [...] Dr. To Prieto. Paramjit Huber M.D. / [id number] / [id number] / [id number] / documented in this enco unter Miscellaneous [...] and hydrocephalus Procedure / Date: 04-12-08 Right STOCK HOLDER shunt Activity Orders: ambulate Precautions: falls, isolation [...] are very careful" Home setting: house in [facility] One or two level home: one Steps [...] this therapist and with . Requir ed BOAT HAND only due to mild unsteadiness. No LOB. states emphatically "this is so much b orquidea than before we came in !" No posterior LOB or leaning noted. Gait: shuffling steps wit h vc's to take bigger steps. Stairs: na End of session: Patient left in chair, with at bedside. Pain at end of session: no pain she states Assessment: 58 yo f s/p STOCK HOLDER shunt presents today close to if not better than her baseline, per her husbands report. She was independent with transfers out of bed and just needed BOAT HAND f or ambulating. She is unsteady with [...] + +---------+ + + | [facility] DEPARTMENT OF | | | | | [...] view image for the detailed interpretation from [employer]. | CARDIOLOGY | | | | + + + + + + + + | Performing | Address | City/State/Zipcode | Phone Number | | Organization | | | | + + + + + | [facility] DEPT OF | [address] | [place], [place] | | | CARDIOLOGY | [address] | [address] | | + + + + + | [facility] DEPT OF | [address] | [place], [place] | | | CARDIOLOGY | [facility] | [address] | | + + + + + [...] Performed At | + + + | [id number] | | | [id number] | | | [id number] [place] [id number] | | | Date: 04/12/2008 Attending Surgeon: | | | Paramjit Huber M.D. Account Manager Trainee(s): | | | To Prieto M.D. | [...] | | | Paramjit Huber M.D. / [id number] / [id number] / [id number] / D: | | | 04/15/2008 | | + + + + + | Procedure Note | + + | To Prieto MD - 04/12/2008 12:00 AM PST [id number] | | [id number] [place] | | [id number] Date: 04/12/2008 Attending Surgeon: | | Paramjit Huber M.D. Account Manager Trainee(s): To Prieto M.D. | | Kamari Cha [...] To Prieto M.D. Paramjit Huber M.D. / [id number] / [id number] / [id number] | | / T: 04/15/2008 | |endotracheal [...] | | | |HS / HS | |[id number] / [id number] / [id number] / | | | | | | [...] Performed At | + + + | [id number] | | | [id number] | | | [place] [id number] | | | Date: 04/12/2008 Attending Surgeon: | | | Paramjit Huber M.D. Account Manager Trainee(s): | | | Kamari Cha M.D., Ph.D. [...] M.D. AD / HS | | | [id number] / [id number] / [id number] / | | | | | + + + + + | Procedure Note | + + | Paramjit Huber MD - 04/12/2008 12:00 AM [facility] [id number] | | [id number] [place] | | [id number] Date: 04/12/2008 Attending Surgeon: Paramjit | | Narinder Huber Account Manager Trainee(s): Kamari Cha M.D., Ph.D. | | To [...] Paramjit Huber, | | Narinder KAUFMAN / [id number] / [id number] / [id number] / T: 04/12/2008 | | To Prieto [...] | | | | |AD / | |[id number] / [id number] / [id number] / | | | | | | [...] | | | DAILY, First dose on [facility] 04/11/08 | | AM PST | [...]
--- OUTSIDE RECORDS SUMMARY | ~2019-10-16 | XMS | Encounter Summary ---
Demographics + + + | Address | [address] | | | [place] [address] | + + + | Home Phone [...] Team Providers + +------+ + | Care Hot Mill Worker Name | Role | Phone | [...] at | | | | | | [facility] | | | | | | [address] | | | | | | [facility] | | | | | | and Healing, | | | | | | [address] | | | | | | [place], [place] | | | | | | [address] | | | | | | [phone] | | | +--------+ + + + [...] or walk. Surgery check-in location: Admitting - [facility], ninth floor lobby Surgery Check in [...] ch as Uber/Lyft), or public transportation. An Uber/Lyft/rear load truck driver does not count as the [...] it is after office hours, call the [facility] welt pocket machine operator at [phone] and ask them to page him or [...]
--- OUTSIDE RECORDS SUMMARY | ~2019-10-16 | XMS | Encounter Summary ---
Demographics + + + | Address | [address] | | | [place] [address] | + + + | Home Phone | | + + + | Preferred Language | Unknown | + + + | Marital Status | | + + + | Scientology Affiliation | MET | + + + | Race | White | + + + | Ethnic Group | Not or | + + + Author + + + | Author | [facility] | + + + | Organization | [facility] | + + + | Address [...] Team Providers + +------+ + | Care Cradle Slide Maker Name | Role | Phone | [...] | | | | | | | [facility] | | | | | | | [place], | | | | | | | [place] [address] | | | | | | | Phone: | | | | | | | [phone] | | | | | | | Fax: | | | | | | | [phone] | +--------+--------+ + + + + Encounter Details +--------+ + + + + | Date | Type | Department | Care Team | Description | +--------+ + + + + | 10/17/ | Emergency | [facility] Emergency | | | | 2007 | | Department [address] | | | | | [address] | | | | | | [facility] | | | | | | [place], [place] | | | | | | [address] | | | | | | [phone] | | | +--------+ + + + [...] 2 bhinav Clay - 10/18/2007 1:41 AM [id number] request ed documented in this enco unter Miscellaneous Notes [facility] Abhinav Clay - 10/18/2007 4:07 AM PDTCrew [facility] [id number] Abhinav Moreau - 10/18/2007 1:43 AM PDTNS notifiedElectronically signed by Abhinav Clay at 1:43 AM [facility]hinav Moreau - 10/18/2007 1:40 AM PDTGroup 18 pagedE lectronically signed by Abhinav Clay at 10/18/2007 1:40 [facility] Shabana Clay - 10/18/2007 1:39 AM PDT58 [...]
--- OUTSIDE RECORDS SUMMARY | ~2019-10-16 | XMS | Encounter Summary ---
Demographics + + + | Address | [address] | | | [place] [address] | + + + | Home Phone [...] Team Providers + +------+ + | Care Green Prize Packer Name | Role | Phone | [...] | | | | [facility] | [place] | Infectious disease | | | | [place], [facility] floor | [address] | | | | | [place], [place] | [phone] | | | | | [address] | | | | | | [phone] | | | +--------+ + + + [...] where to check in tomorrow evening at [facility] for her infusion. Patient verbalize d that she thinks it is disappointing that [place] size [place] accommodate he r infusion. I did say that the constraints of her 3 appointments on the opal made it more di fficult. I asked [...] Katelyn at day surgery infusion unit at [facility] who confirmed that pt can have late dose administered on 12/23/17 o n another unit in the hospital. Pt will have to check in at admitting who will then call e nursing hydrochloric manufacturing supervisor so she can be escorted to appropriate floor for infusion. Called pt to discuss with her, LM on cell and home phones. Rosalina Lopez RN elephone Encounter - Kristen Goss RN - 12/21/2017 1:54 PM PDTPatient called because she has multiple appointments on 12/23 and she is driving from [place] (3 hour trip). I told h er [...]
--- OUTSIDE RECORDS SUMMARY | ~2019-10-16 | XMS | Encounter Summary ---
Demographics + + + | Address | [address] | | | [place] [address] | + + + | Home Phone | | + + + | Preferred Language | Unknown | + + + | Marital Status | | + + + | Shinto Affiliation | Unknown | + + + | Race | White | + + + | Ethnic Group | Not or | + + + Author + + + | Author | [facility] | | | and [place] | + + + | Organization | [facility] | | | [...] Team Providers + +------+ + | Care Bias Binding Folder Name | Role | Phone | + [...] + + | 03/05/ | Telephone | [facility] | Chana Luu, | Other (question | | 2017 | | CARDIOLOGY [address] | MD [address] | about plavix) | | | | [place], | [place] | | | | | [place] [address] | [address] | | | | | [phone] | | | +--------+ + + + [...]
--- OUTSIDE RECORDS SUMMARY | ~2019-10-16 | XMS | Encounter Summary ---
Demographics + + + | Address | [address] | | | [place] [address] | + + + | Home Phone [...] Team Providers + +------+ + | Care Element Winding Machine Tender Name | Role | Phone [...] + | 09/13/ | Hospital | [facility] [address] | Meeta Donnelly, | | | 2019 - | Encounter | [place] | [address] | | | | | /[id number] [facility] | [address] | | | 09/22/ | | [facility], | [place], [place] | | | 2019 | | [place] [address] | [address] | | | | | [phone] | [phone] | | | | | | | | | | | | Angel See, PA | | | | | | [address] [facility] | | | | | | [address] [place], | | | | | | [place] [address] | | | | | | [phone] | | | | | | | | | | | | Remington Dexter, NATURAL SCIENCES PROFESSOR | | | | | | [address] [facility] | | | | | | [address] | | | | | | [place], [place] | | | | | | [address] | | | | | | [phone] | | | | | | | | | | | | Carlos Eduardo Maher, [address] | | | | | | [facility] | | | | | | Rd [place], [place] | | | | | | [address] | | | | | | [phone] | | | | | | | | | | | | Ata White MD [address] | | | | | | [facility] | | | | | | Rd [place], [place] | | | | | | [address] | | | | | | [phone] | | | | | | | [...] ENT Brief Hospital Course: Preadmitted to [facility] ED on 09/13 for scalp wound deshicence. [...] [facility] the [facility] The patient had no post-operative events The [...] to 4:30pm, call the Otolaryngology clinic at [phone]. After hours, weekends, and holidays, call the [facility] drop forge operator at [phone] and as k to have the ENT doctor on-call paged Contact information for after-discharge snf [facility] . Service: Home Health Services Contact information [address], [address] [phone] Future Appointments Date Time Provider Department Center [...] microbiology/pathology: CULTURE, BLOOD BACTI & YEAST [facility] [[id number]] [facility] Collected: 09/20/18 0647 Lab Status: Preliminary result Specimen: Blood Updated: 09/22/18 0055 CULTURE RESULT No growth to date. [facility] CULTURE, AFB (ALL SPEC TYPES EXCEPT BLOOD) [[id number]] LAB Collected: 09/19/181427 Lab Status: Preliminary result Specimen: Tissue from Head Updated: 09/20/18 0441 Narrative: AFB Smear: AFB not detected CULTURE, TISSUE [[id number]] (Abnormal) LAB Collected: 09/19/181427 Lab Status: Preliminary [...] CULTURE, FUNGAL EXCEPT BLOOD, SKIN, HAIR, NAIL [[id number]] LAB Collected: 09/19/18 142 Lab Status: In process Specimen: Tissue from Head Updated: 09/19/18 1453 CULTURE, AFB (ALL SPEC TYPES EXCEPT BLOOD) [[id number]] LAB Collected: 09/19/18 1412 Lab Status: Preliminary result Specimen: Swab from Head Updated: 09/20/18 0441 Narrative: AFB Smear: AFB not detected CULTURE, WOUND DEEP W/ ANAEROBE [[id number]] (Abnormal) LAB Collected: 09/19/18 1412 Lab Status: [...] CULTURE, FUNGAL EXCEPT BLOOD, SKIN, HAIR, NAIL [[id number]] LAB Collected: 09/19/18 1412 Lab Status: In process Specimen: Swab from Head Updated: 09/19/18 1454 CULTURE, BLOOD BACTI & YEAST [facility] [[id number]] [facility] Collected: 09/19/18 0604 Lab Status: Preliminary result Specimen: Blood from Antecubital - right Updated: 09/21/18 0 055 CULTURE RESULT No growth to date. [facility] CULTURE, BLOOD BACTI & YEAST [facility] [[id number]] [facility] Collected: 09/18/18 0535 Lab Status: Preliminary result Specimen: Blood from Hand - left Updated: 09/20/18 0055 CULTURE RESULT No growth to date. [facility] CULTURE, BLOOD BACTI & YEAST [facility] [[id number]] [facility] Collected: 09/17/18 0919 Lab Status: Preliminary result Specimen: Blood from Hand - left Updated: 09/19/18 0055 CULTURE RESULT No growth to date. [facility] CULTURE, BLOOD BACTI & YEAST [facility] [[id number]] (Abnormal) [facility] Collected: 09/14/18 0025 Lab Status: Edited Result - FINAL Specimen: Blood from Peripheral Updated: 09/15/18 0502 CULTURE RESULT [facility] Staphylococcus epidermidisPanic Ref Range: GRAM STAIN Gram Positive BacilliPanic [facility] Gram positive cocci in clustersPanic Ref Range: Comment: This is an appended report. These results have been appended to a previously yovanny l verified report. Narrative: Growth in Aerobic Bottle - GPB only. Growth in Anaerobic Bottle - GPC and [facility]. Organism Identified by Molecular ID, to be confirmed by culture. BLOOD CULTURE WORKUP [[id number]] (Abnormal) LAB Collected: 09/14/18 0025 Lab Status: [...] and Neck Surgery Mail Code PV01 [address] [place], [place] [id number] Pager [phone] Consult/Night/Weekend Pager: [phone] documented in this encounter Discharge Instructions Instructions [...] Gram Stain...........: Gram smear performed at [facility]. Culture: Final Report: No growth after 3 [...] Please contact the neurosurgery cooper on-call pager [phone] with questions. Saskia Conway MD Neurosurgery PGY1 Pager: [phone] [facility] - 0 09/21/2018 11:32 AM PDT NEUROSURGERY PROGRESS NOTE Attending Physician: Ata White MD (ENT); Paramjit Huber MD (NSGY) INTERVAL EVENTS: Planning to be discharged tomorrow and stay with her brother in [place] OBJECTIVE: Last 24 hour min/max Temp: 36.7 [...] Gram Stain...........: Gram smear performed at [facility]. Culture: Final Report: No growth after 3 [...] Please contact the neurosurgery cooper on-call pager [phone] with questions. Saskia Conway MD Neurosurgery PGY1 Pager: [phone] iAngie andersen PA-C - 09/21/2018 8:23 AM PDT DOS: 09/21/2018 Head and Neck Surgery Inpatient Daily Progress Note: Primary Care Provider: Mary Vazquez PA-C Admission Date: 09/13/2018 GLORIA ADHIKARI, [id number] Hospital Day #8 SUBJECTIVE INTERVAL EVENTS: - [...] 90 94 94 124* 128* 97 ASSESSMENT/PLAN: Glroia Adhikari is a 68F with history of [...] and Neck Surgery Mail Code PV01 [address] [place] [address] Pager [phone] Consult/Night/Weekend Pager: [phone] Saskia Tinoco MD - 09/20/2018 7:54 AM [...] Gram Stain...........: Gram smear performed at [facility]. Culture: Final Report: No growth after 3 [...] Please contact the neurosurgery cooper on-call pager [phone] with questions. Saskia Conway MD Neurosurgery PGY1 Pager: [phone] Angie Piña PA-C - 09/20/2018 6:58 AM PDT DOS: 09/20/2018 Head and Neck Surgery Inpatient Daily Progress Note: Primary Care Provider: Mary Vazquez PA-C Admission Date: 09/13/2018 GLORIA ADHIKARI, [id number] Hospital Day #7 SUBJECTIVE INTERVAL EVENTS: - [...] and Neck Surgery Mail Code PV01 [address] [place] [address] Pager [phone] Consult/Night/Weekend Pager: [phone] Hernandez Mistry MD - 09/19/2018 5:58 PM PDTNeurosurgery Post-Op Check 09/19/2018 5:58 PM Examined in 10k Procedure performed: wound revision, mesh explant Awake, alert, oriented to person, place, time Appropriately interactive PERRL, EOMI, FS, TML BUE/BLE / No drift SILT Incision c/d/i. LAZARA bloody. Please page [phone] with any questions Hernandez Wells M.D. Neurosurgery PGY-2 Angie Piña PA-C - 09/19/2018 8:07 AM PDT DOS: 09/19/2018 Head and Neck Surgery Inpatient Daily Progress Note: Primary Care Provider: Mary Vazquez PA-C Admission Date: 09/13/2018 GLORIA ADHIKARI, [id number] Hospital Day #6 SUBJECTIVE INTERVAL EVENTS: - [...] and Neck Surgery Mail Code PV01 [address] [place], [place] [id number] Pager [phone] Consult/Night/Weekend Pager: [phone] ettie Jaramillo PA - 09/19/2018 7:21 AM [...] Gram Stain...........: Gram smear performed at [facility]. Culture: Final Report: No growth after 3 days. Final Report 04/29/2008 Corrected CSF Culture Source...............: Cerebrospinal Fluid RLB Gram Stain...........: Gram smear performed at [facility]. Culture: Rare Methicillin resistant Staphylococcus aureus Final ID MRSA Cefazolin R Clindamycin S Erythromycin R Oxacillin R Penicillin R Tetracycline S Trimeth/Sulfa S Vancomycin S Final Report Comment: Test performed at [facility]. 03/07/2008 Corrected CSF Culture Source...............: Cerebrospinal Fluid RLB Gram Stain...........: Gram smear performed at [facility]. Culture: Final Report: No growth after 3 days. Final Report Comment: Test performed at [facility]. 03/03/2008 Corrected CSF Culture Source...............: Cerebrospinal Fluid RLB Gram Stain...........: Gram smear performed at [facility]. Culture: Final Report: No growth after 3 days. Final Report Comment: Test performed at [facility]. 03/03/2008 Corrected Wound Culture Source...............: Skin Abscess RLB Gram Stain...........: Rare Squamous epithelial cells Rare PMN's Rare Gram positive cocci Culture: 1+ Methicillin resistant Staphylococcus aureus Final ID MRSA Cefazolin R Clindamycin S Erythromycin R Oxacillin R Penicillin R Tetracycline S Trimeth/Sulfa S Vancomycin S Final Report Resulted: 03/05/08 RLB ([facility]) [facility] [place] [address] [place] [address] Comment: Test performed at [facility]. CULTURE RESULT Date Value Ref [...] tissue flap (08/03/18)no w presenting to [facility] for non-viable flap and concern for underlying [...] cultures. Cares per ENT. ANSON MULLINS [facility] [address] [facility] [address] [address] Nettie Knowles PA - 09/18/2018 11:09 AM [...] Gram Stain...........: Gram smear performed at [facility]. Culture: Final Report: No growth after 3 days. Final Report 04/29/2008 Corrected CSF Culture Source...............: Cerebrospinal Fluid RLB Gram Stain...........: Gram smear performed at [facility]. Culture: Rare Methicillin resistant Staphylococcus aureus Final ID MRSA Cefazolin R Clindamycin S Erythromycin R Oxacillin R Penicillin R Tetracycline S Trimeth/Sulfa S Vancomycin S Final Report Comment: Test performed at [facility]. 03/07/2008 Corrected CSF Culture Source...............: Cerebrospinal Fluid RLB Gram Stain...........: Gram smear performed at [facility]. Culture: Final Report: No growth after 3 days. Final Report Comment: Test performed at [facility]. 03/03/2008 Corrected CSF Culture Source...............: Cerebrospinal Fluid RLB Gram Stain...........: Gram smear performed at [facility]. Culture: Final Report: No growth after 3 days. Final Report Comment: Test performed at [facility]. 03/03/2008 Corrected Wound Culture Source...............: Skin Abscess RLB Gram Stain...........: Rare Squamous epithelial cells Rare PMN's Rare Gram positive cocci Culture: 1+ Methicillin resistant Staphylococcus aureus Final ID MRSA Cefazolin R Clindamycin S Erythromycin R Oxacillin R Penicillin R Tetracycline S Trimeth/Sulfa S Vancomycin S Final Report Resulted: 03/05/08 RLB ([facility]) [facility] [address] [place] [address] Comment: Test performed at [facility]. CULTURE RESULT Date Value Ref [...] flap (08/03/18) now pres enting to [facility] for non-viable flap and concern for underlying infection/involvement of mesh cranioplasty.Plan for combined surgery (ENT+ NSG) tomorrow. PLAN: OR tomorrow for wound washout, explant of cranioplasty, flap per ENT. NPO after MN. Type and Screen; INR; CBC; BMP. ABX (Zosyn + Vanc) per primary service. Hold prophylactic lovenox. Pre op note forthcoming. ANSON MULLINS [facility] [address] [facility] [address] [place] [address] Saskia Tinoco MD - 09/18/2018 10:58 AM [...] Saskia Conway MD Neurological Surgery R1 Pager: [phone] ngie French PA-C - 09/18/2018 8:02 AM PDT DOS: 09/18/2018 Head and Neck Surgery Inpatient Daily Progress Note: Primary Care Provider: Mary Vazquez PA-C Admission Date: 09/13/2018 GLORIA ADHIKARI, [id number] Hospital Day #5 SUBJECTIVE INTERVAL EVENTS: - [...] and Neck Surgery Mail Code PV01 [address] [place] [address] Pager [phone] Consult/Night/Weekend Pager: [phone] Carlos Eduardo Alfonso MD - 0 09/17/2018 10:17 AM PDT DOS: 09/17/2018 Head and Neck Surgery Inpatient Daily Progress Note: Primary Care Provider: Mary Vazquez PA-C Admission Date: 09/13/2018 GLORIA ADHIKARI, [id number] Hospital Day #4 SUBJECTIVE INTERVAL EVENTS: - [...] GLU 97 91 88 99 ASSESSMENT/PLAN: Gloria Adhikair is a 68F with history of remote [...] - Head and Neck Surgery, PGY1 Pager [phone] Overnight/weekend consults pager [phone] I saw and evaluated the patient. I agree with the findings and the plan of care as documejalen benitez in the resident/provider note. Carlos Eduardo Maher MD Assistant Engineer Head and Neck Surgical Oncology Microvascular Reconstructive [...] Please contact the neurosurgery cooper on-call pager [phone] with questions. Alvin Mcclure MD Neurosurgery PGY1 Pager [phone] i, Carlos Eduardo Donald MD - 09/16/2018 8:36 AM PDT DOS: 09/16/2018 Head and Neck Surgery Inpatient Daily Progress Note: Primary Care Provider: Mary Vazquez PA-C Admission Date: 09/13/2018 GLORIA ADHIKARI, [id number] Hospital Day #3 SUBJECTIVE INTERVAL EVENTS: - [...] the resident/provider note. Carlos Eduardo Maher MD Assistant Engineer Head and Neck Surgical Oncology Microvascular Reconstructive [...] Please contact the neurosurgery cooper on-call pager [phone] with questions. Brenda Barillas MD Neurosurgery PGY-1 Pager: [phone] Associated attestation - Alfreda Mccollum MD - 09/16/2018 10:52 AM PDTI agree with the re sident note above. Any changes if any are noted below. Alfreda Mccollum MD Skull Base Fellow Department of Neurological Surgery [facility] [place] Angie French PA-C - 09/15/2018 8:35 AM PDT DOS: 09/15/2018 Head and Neck Surgery Inpatient Daily Progress Note: Primary Care Provider: Mary Vazquez PA-C Admission Date: 09/13/2018 GLORIA ADHIKARI, [id number] Hospital Day #2 SUBJECTIVE INTERVAL EVENTS: No [...] ANGIE FRENCH PA-C Otolaryngology-Head and Neck Surgery [facility] Pager [phone] Shelly Jenkins RT - 09/14/2018 2:59 PM [...] nning. Past Histories Allergies: Allergies Allergen Reactions [place] Tar Hives Betadine [Povidone-Iodine (With Soap)] Rash Cipro [Ciprofloxacin] Nausea and Vomiting Codeine Hcl Nausea and Vomiting Sulfa (Sulfonamide Antibiotics) Erythema Past Surgical History Procedure Laterality Date Partial thyroidectomy Right Hysterectomy Bladder suspension 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 Dormitory Keeper shunt Tympanoplasty Right 1987 Lumpectomy of left breast 1979 Coronary stent placement 12/28/2014 status post stent placement in the mid LAD Removal of mink rancher shunt Cholecystectomy Past Medical History: Diagnosis Date Abnormal LFTs (liver function tests) CAD in [place] artery s/p NSTEMI 12/27/2014; status post stent placement in the mid LAD Chronic pain COPD on oxygen at night Essential hypertension GERD (gastroesophageal reflux disease) Goiter Hemorrhagic stroke ([facility]) 2007 aneurysm MRSA (methicillin resistant staph aureus) culture positive post cariotomy for SAH Otitis media recent abx preadmit PONV (postoperative nausea and vomiting) Subarachnoid hemorrhage due to ruptured aneurysm ([facility]) 2007 Tobacco dependence Family History Problem Relation [...] for input(s): FIO2, PH, PCO2, PO2, HCO3, [id number], I3ISATSY, [id number] in the l ast 720 hours. CSF [...] Gram Stain...........: Gram smear performed at [facility]. Culture: Final Report: No growth after 3 days. Final Report 04/29/2008 CSF Culture Source...............: Cerebrospinal Fluid RLB Gram Stain...........: Gram smear performed at [facility]. Culture: Rare Methicillin resistant Staphylococcus aureus Final [...] availabl leonides Bridges MD Neurosurgery, PGY-2 Pager [phone] Risk and Morbidity Patient Risk Modifiers - Including but not limited to. Age: 68 y.o. female DNR: Full Code Transfer status/urgency : From Outside Hospital : From [facility] ER: Symptom Onset: More than 12 hours (09/13/18) Patient Acuity: 3 (09/13/182036) Destination: Acute (09/13/182036) Palliative/end of Life Care :No First GCS and if Mechanically Ventilated/Intubated: Best Motor Response: 6-->(M6) obeys commands (09/13/182036) Best Verbal Response: 5-->(V5) oriented (09/13/182036) Best Eye Response: 4-->(E4) spontaneous (09/13/182036) Score ([place] Coma Scale): 15 (09/13/182036) Last GCS and if Mechanically Ventilated/Intubation: Best Motor Response: 6-->(M6) obeys commands (09/14/181229) Best Verbal Response: 5-->(V5) oriented (09/14/18 123) Best Eye Response: 4-->(E4) spontaneous (09/14/18 1230) Score ([place] Coma Scale): 15 (09/14/18 1230) Comatose State: If GCS<9 Then patient by definition is in a comatose state Score ([place] Coma Scale) Min: 15 Max: 15 Loss [...] weeks. Continuous tobacco abuse Coronary arteriosclerosis in [place] artery 03/06/2015 History of non-ST elevation myocardial [...] facial drooping at home and went to [facility] ED, CT head that was reportedly negative. At ED it was noted she had foul smelling disch arge from wound, contacted her [facility] ENT and referred to [facility] ED. No records of ED visit on [...] CMP WNL, lactate 1.4. Imaging from OSH ([facility] in [place]) being pushed ENT evaluated and await final recs Once stable, the patient was transferred to the Emergency Department Observation Unit with a diagnosis of possible surgical wound infection for continuation of care including observat ion PAST MEDICAL HISTORY: Past Medical History: Diagnosis Date Abnormal LFTs (liver function tests) CAD in [place] artery s/p NSTEMI 12/27/2014; status post stent [...] Bladder suspension 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 Dormitory Keeper shunt Tympanoplasty Right 1987 Lumpectomy of left breast 1978 Coronary stent placement 12/28/2014 status post stent placement in the mid LAD Removal of mink rancher shunt Cholecystectomy MEDICATIONS: Patient's Medications New Prescriptions [...] medications on file ALLERGIES: Allergies Allergen Reactions [place] Tar Hives Betadine [Povidone-Iodine (With Soap)] Rash [...] PMH of CAD, NSTEMI s/p stenet, HTN, 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 MD CHANDRIKA Hansen/SWAPNILL /[id number] signed by Ata White MD at 09/27/2018 2:04 PM PDTWaAta michael MD - 09/22/2018 11:27 AM PDTAssociated Order(s): OPERATION RECORDDate of Service: 0 09/19/2018 Attending Surgeon:Ata White MD Plaster Form Maker(s):Augusto Shaikh MD. Preoperative Diagnosis: Partially necrotic latissimus [...] sent to recovery room. MD CHANDRIKA Hansen/NGUYEN /[id number] signed by Ata White MD at 09/26/2018 6:17 PM PDTSan Alfreda ray MD - 09/19/2018 5:44 PM PDTAssociated Order(s): OPERATION RECORDProcedure(s ): OPERATION RECORDDate of Procedure: 09/19/18 Attending Surgeon: Alfreda Mccollum MD Plaster Form Maker(s): Diana Richey MD, Dillan Bridges MD Preoperative [...] brought to the operative room on a [facility]. General anesthesia was induced by the neuroanesthesia team. The eyes were taped shut to prevent corneal abrasion. The patient was placed in the supine position, and all pressure points were carefully padded. The head was secured in the horseshoe pile header. The hair over the area was [...] x2. Dillan Bridges MD Neurosurgery, PGY-2 Pager [phone] I certify that I was present for and participated in the critical parts of the procedure. I further certify that I was the principal neurosurgeon for this procedure. Alfreda Mccollum MD Clinical Instructor & Skull Base Fellow Department of Neurological Surgery [facility] [place] documented in this encounter [...] on stable regimen. Please page clinical pharmacist [phone]) or call central inpatient pharmacy ([phone]) with q uestions. Subjective/Objective: Indication: Cranial flap [...] cultures/sensitivities: CULTURE, BLOOD BACTI & YEAST [facility] [[id number]] (Abnormal) [facility] Collected: 09/14/1824 Lab Status: Edited Result - FINAL Specimen: Blood from Peripheral Updated: 09/15/18 0502 CULTURE RESULT [facility] Staphylococcus epidermidisPanic Ref Range: GRAM STAIN Gram Positive BacilliPanic [facility] Gram positive cocci in clustersPanic Ref Range: Comment: This is an appended report. These results have been appended to a previously yovanny l verified report. Narrative: Growth in Aerobic Bottle - GPB only. Growth in Anaerobic Bottle - GPC and [facility]. Organism Identified by Molecular ID, to be confirmed by culture. BLOOD CULTURE WORKUP [[id number]] (Abnormal) LAB Collected: 09/14/1824 Lab Status: Final result Specimen: Blood from Peripheral Updated: 09/17/18 1105 CULTURE RESULT LAB Bacillus species, not B anthracisAbnormal Ref Range: [facility] Coagulase negative staphylococcus speciesAbnormal Ref Range: Narrative: Culture Report: Bacillus species, not B. anthracis Coagulase negative Staphylococcus species Growth in Aerobic bottle Growth in Anaerobic bottle Thank you for the consult, Arun Anderson PharmD, [facility] Pager [phone] Courtney Kevin R Ph - 09/16/2018 12:19 [...] to fourth dose. Please page clinical pharmacist [phone]) or call central inpatient pharmacy ([phone]) with qu estions. Actual body weight: Weight: [...] cultures/sensitivities: CULTURE, BLOOD BACTI & YEAST [facility] [[id number]] (Abnormal) [facility] Collected: 09/14/18 0025 Lab Status: Edited Result - FINAL Specimen: Blood from Peripheral Updated: 09/15/18 0502 CULTURE RESULT [facility] Staphylococcus epidermidisPanic Ref Range: GRAM STAIN Gram Positive BacilliPanic [facility] Gram positive cocci in clustersPanic Ref Range: Comment: This is an appended report. These results have been appended to a previously yovanny l verified report. Narrative: Growth in Aerobic Bottle - GPB only. Growth in Anaerobic Bottle - GPC and [facility]. Organism Identified by Molecular ID, to be confirmed by culture. Thank you for consult, Courtney Mcmullen [facility]. Pager [phone] Julianna Alexander - 0 09/14/2018 11:28 AM PDT Pharmacist Managed Vancomycin: Initial Note Indication: soft tissue infection Goal trough: 10-15 CrCl: 50-60 ml/min Urine output: not collected in the ED Renal function: stable Assessment/Plan: - Start vancomycin 750 mg IV every 12 hours - Pharmacist will order trough level prior to fourth dose. Please page clinical pharmacist [phone]) or call central inpatient pharmacy ([phone]) with qu estions. Actual body weight: Weight: [...] which date the initial concern by her healthcare project manager to 08/19/18. She repor ts intermittent right eyelid droop and lip discoordination since discharge but yesterday mellissa yusuf was found to have an acute left sided facial droop so her family brought her to the [facility] [place] emergency department. 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 CAD in [place] artery s/p NSTEMI 12/27/2014; status post stent placement in the mid LAD Abnormal LFTs (liver function tests) MRSA (methicillin resistant staph aureus) culture positive post cariotomy for SAH Hemorrhagic stroke (HCC) 2007 aneurysm PONV (postoperative nausea and vomiting) Past Surgical History Procedure Date Partial thyroidectomy Hysterectomy Bladder suspension 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 Dormitory Keeper shunt Tympanoplasty 1987 Lumpectomy of left breast 1979 Coronary stent placement 12/28/2014 status post stent placement in the mid LAD Removal of mink rancher shunt Cholecystectomy Social History Tobacco Use Smoking status: Current Every Day Smoker Packs/day: 1.00 Years: 50.00 Pack years: 50.00 Types: Cigarettes Smokeless tobacco: Never Used Tobacco comment: Substance Use Topics Alcohol use: No Alcohol/week: 0.0 oz Drug use: No Family History Problem Relation Additional Family History Mother dementia Cancer Father brain Cancer Brother lung Allergies Allergen Reactions [place] Tar Hives Betadine [Povidone-Iodine (With Soap)] Rash [...] Resident Physician, PGY2 Otolaryngology, H&N Surgery Pager [phone] This patient's history and examination was discussed with me. I agree with the plan of care that has been recommended. Carlos Eduardo Maher MD Assistant Engineer Head and Neck Surgical Oncology Microvascular Reconstructive Surgery [facility] documented in this encount er ED Notes Nancy Scales RN - 09/14/2018 5:15 PM PDTReport to RN on 10K. Patient to [facility] via stre tcher with transport and all personal belongings. 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 No records of ED visit on [...] CMP WNL, lactate 1.4. Imaging from OSH ([facility] in [place]) being pushed ENT evaluated and await final [...] aspirin after surgery Remington Dexter NP [facility] [address] [place] [address] Jhiyiwpmffguul signed by Remington Dexter NP at 09/14/2018 [...] SBAR to Geovanni HUERTAS and Jacob (nursing associate)Electronically si gned by Lisa Cordova RN at [...] appears to be at neurol ogical baseline. [place] sandwich provided. Lisa English RN - 09/14/2018 [...] patient was seen at an ED in [place] yesterday for symptoms o f transient [...] the prescription filled. She d rove to [place] today for ENT evaluation as the ED provider in [place] urged her to do so . On [...] weeks. Continuous tobacco abuse Coronary arteriosclerosis in [place] artery 03/06/2015 History of non-ST elevation myocardial [...] ruptured aneurysm (HCC) 2007 Goiter CAD in [place] artery s/p NSTEMI 12/27/2014; status post stent placement in the mid LAD Abnormal LFTs (liver function tests) MRSA (methicillin resistant staph aureus) culture positive post cariotomy for SAH Hemorrhagic stroke (HCC) 2007 aneurysm PONV (postoperative nausea and vomiting) Past Surgical History Procedure Date Partial thyroidectomy Hysterectomy Bladder suspension 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 Dormitory Keeper shunt Tympanoplasty 1987 Lumpectomy of left breast 1979 Coronary stent placement 12/28/2014 status post stent placement in the mid LAD Removal of mink rancher shunt Cholecystectomy Medications Prior to Admission Medications [...] daily. Facility-Administered Medications: None Allergies Allergen Reactions [place] Tar Hives Betadine [Povidone-Iodine (With Soap)] Rash [...] 0.72 0.60 - 1.10 mg/dL EGFR - PARAGUAYAN >60 >60 mL/min EGFR NON -PARAGUAYAN >60 >60 mL/min SODIUM, PLASMA (LAB) 137 [...] imaging reques eli to be pushed from [facility]. ENT evaluated the patient in the ED, [...] tained via PIV placement using aseptic technique. Financial Services Manager attempted to obtain second set of b lood cultures via straight stick to the left hand. During draw pt pulled her hand away unexp ectedly almost causing this advertising copywriter to stick himself with the needle and pt bled on the floor . Bandage + pressure placed on IV site and blood drops cleaned. Defer second set of BC to charles wright in the visit. ee Ayush salguero RN - 09/13/2018 8:33 PM PDTPt had a flap procedure done 08/06/18 reversing a cranioplasty. Yesterday pt went to [facility] after her son noticed some left [...] he wanted patient to be seen in [facility]. Pr drove from [facility] today. Respirations regular and unlabored, [...] the oxymask vs Nasal Cannula (09/14/182038) [facility] IP NURSE HANDOFF: [facility] hospital course events: Admit: Admitted to [facility] wi th TIA, transferred to [facility] with infection and nonviable flap (09/13). Hx: [...] TIA at home and was admitted to [facility] b efore coming to [facility]. - Encourage increased po intake Barriers to discharge: She will discharge today back to [place]. andoff - Danni Hobson RN - 09/21/2018 11:33 PM PDTNursing Handoff Patient Daily Goal: Go outside to 9th floor (09/17/18815) Patient Specific Preferences: prefers the oxymask vs Nasal Cannula (09/14/182038) [facility] IP NURSE HANDOFF: [facility] hospital course events: Admit: Admitted to [facility] wi th TIA, transferred to [facility] with infection and nonviable flap (09/13). Hx: [...] TIA at home and was admitted to [facility] b efore coming to [facility]. - Encourage increased po intake Barriers to discharge: She will discharge on Tuesday with her friends and her son will pick her up Tuesday from their house. andoff - Nneka Wesley RN - 09/21/2018 2:41 PM PDTNursing Handoff Patient Daily Goal: Go outside to 9th floor (09/17/18815) Patient Specific Preferences: prefers the oxymask vs Nasal Cannula (09/14/182038) [facility] IP NURSE HANDOFF: [facility] hospital course events: Admit: Admitted to [facility] wi th TIA, transferred to [facility] with infection and nonviable flap (09/13). Hx: ruptured A-comm aneurysm with SAH in 2007. 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 Infection, multiple flap revisions. July [...] TIA at home and was admitted to [facility] b efore coming to [facility]. - Encourage increased po intake Barriers to discharge: She will discharge on Tuesday with her friends and her son will pick her up Tuesday from their house. andoff - Courtney Hankins RN - 09/21/2018 6:44 AM PDTNursing Handoff Patient Daily Goal: Go outside to 9th floor (09/17/18 0816) Patient Specific Preferences: prefers the oxymask vs Nasal Cannula (09/14/182038) [facility] IP NURSE HANDOFF: [facility] hospital course events: Admit: Admitted to [facility] wi th TIA, transferred to [facility] with infection and nonviable flap (09/13). Hx: ruptured A-comm aneurysm with SAH in 2007. 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 Infection, multiple flap revisions. July [...] TIA at home and was admitted to [facility] b efore coming to [facility]. - Encourage increased po intake Barriers to [...] N - 09/20/2018 6:07 PM PDTAdmitted to [facility] with TIA, transferred to [facility] with infection and nonviable flap (09/13). Hx: ruptured A-comm aneurysm with SAH in 2007. 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 Infection, multiple flap revisions. July 2018 Wound debridement with Rt latissi mus dorsi flap and replacement of mesh cranioplasty. 09/14: Necrotic flap debrided at bedside by ENT 09/19: Scalp rotational flap done in OR Nursing Handoff Patient Daily Goal: Go outside to 9th floor (09/17/18815) Patient Specific Preferences: prefers the oxymask vs Nasal Cannula (09/14/182038) [facility] IP NURSE HANDOFF: NURSING ASSESSMENT & RECOMMENDATIONS [...] from the alondra [facility]. Physical Therapy Evaluation [phone] GLORIA ADHIKARI [facility] Day: 7 Date of : [...] Abnormal LFTs (liver function tests) CAD in [place] artery s/p NSTEMI 12/27/2014; status post stent placement in the mid LAD Chronic pain COPD on oxygen at night Essential hypertension GERD (gastroesophageal reflux disease) Goiter Hemorrhagic stroke ([facility]) 2007 aneurysm MRSA (methicillin resistant staph aureus) culture positive post cariotomy for SAH Otitis media recent abx preadmit PONV (postoperative nausea and vomiting) Subarachnoid hemorrhage due to ruptured aneurysm ([facility]) 2007 Tobacco dependence Past Surgical History Procedure Laterality Date Partial thyroidectomy Right Hysterectomy Bladder suspension 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 Dormitory Keeper shunt Tympanoplasty Right 1987 Lumpectomy of left breast 1979 Coronary stent placement 12/28/2014 status post stent placement in the mid LAD Removal of mink rancher shunt Cholecystectomy Present at bedside other than patient and physical therapist: Pt's brother and ifeqix-jg-ay w Subjective: Feeling better, has been getting up just fine Living Environment: will disch with her brother and fvggdf-gv-qgv to their home in [facility] [id number]-cva will manage wound care. Otherwise pt lives alone in [place] Prior level of function: independent with mobility and gait Equipment: has 2 helmets at home Patient / Family Goal: get better Communication: Gu[place]ese Barriers: None Pain: no reports of pain. [...] rehabilitation: assessment and treatme nt (5th ed.). [place]: [facility]. p.[phone] Functional Mobility and Gait: supine to sit independent Sit to stand independent Gait independent x 500 ft, steady with lateral head turns, 90, 180 and 360 deg turns, negot iating obstacles Outcome Measure: 1. [facility] BASIC MOBILITY Difficulty turning over in [...] A Little - Minimal/Contact Guard Assist/Superv ision [facility] Basic Mobility Total Score 23 Interpretation of [facility] Short Form - Basic Mobility: Predicts discharge post hospitalization ([facility] raw score: 6-24) Home = 20.1 Home with home care = 17.9 senior living facility = 13.6 Inpatient rehabilitation facility = 13.6 penitentiary care = 11.5 Susan Ledesma. The use of functional outcome measure in acute care to guide discharg e recommendations. J Acute Banking Center Manager. 2012;3(3):248 Pt Education: Discussed mobility, helmet as [...] acute PT indicated, signing off. Interpretation of [facility] Short Form - Basic Mobility: CMS [...] and ambulate throughout unit with bedside nurse/ ACCOUNT MAINTENANCE REPRESENTATIVE supervision Discharge Recommendations: Intermittent assistance at discharge [...] discharge summary. Jaylon Amor PT, DPT Pager: [phone] androhith - Andree Hagen ra RN - 09/20/2018 11:30 AM PDTNursing Handoff Patient Daily Goal: Go outside to 9th floor (09/17/18 0816) Patient Specific Preferences: prefers the oxymask vs Nasal Cannula (09/14/182038) [facility] IP NURSE HANDOFF: [facility] hospital course events: Admit: Admitted to [facility] wi th TIA, transferred to [facility] with infection and nonviable flap (09/13). Hx: ruptured A-comm aneurysm with SAH in 2007. 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 Infection, multiple flap revisions. July [...] TIA at home and was admitted to [facility] b efore coming to [facility]. - Encourage increased po intake Barriers to [...] - 09/20/2018 1:50 AM PDTNursing Handoff [facility] IP NURSE HANDOFF: [facility] hospital course events: Admit: Admitted to [facility] wi th TIA, transferred to [facility] with infection and nonviable flap (09/13). Hx: ruptured A-comm aneurysm with SAH in 2007. 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 Infection, multiple flap revisions. July [...] at home and was admitted to [facility] coming to [facility]. - Encourage increased po intake - monitor PVR, last voided at 0600 w/ PVR of 350ml. Barriers to discharge: Pending clinical course andoff - Vida Rogle RN - 09/19/2018 7:02 PM PDTNursing Handoff [facility] IP NURSE HANDOFF: [facility] hospital course events: Admit: Admitted to [facility] wi th TIA, transferred to [facility] with infection and nonviable flap (09/13). Hx: ruptured A-comm aneurysm with SAH in 2007. 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 Infection, multiple flap revisions. July [...] at home and was admitted to [facility] coming to [facility]. - Encourage increased po intake andoff - [...] pain medication information: none Functional Epidural: N/A MODEL BUILDER DISPLAY: N/A Respiratory: RR: 19 , O2 Sat: 90 % , O2 Delivery: Nasal cannula Breath Sounds: Ex (hx copd) DARIEN: LLL: RUL: RLL: MELISSA No Comment: no hx Cardiac: BP: 118/93 HR: 91 GI: Nausea/Vomiting Status: No Signs/Symptoms: Interventions: Assessment: Comments: denies nausea. Zofan and Dex in OR : Last void: buster garcia'saida at end of OR around Contact Name: Feb [phone] Contact Number: Feb [phone] Family contacted: Yes Comment:will update prior to [...] course of c eftriaxone Cardiovascular CAD in [place] artery Assessment & Plan NSTEMI in 2014 [...] FNP - 09/19/2018 2:34 PM PDTAssociated Problem(s): Vlqoej03 pack year smoker. Cont nicotine patch Educate [...] 09/19/2018 2:28 PM PDTAssociated Problem(s): CAD in [place] ryNSTEMI in 2015 s/p mid LAD [...] the oxymask vs Nasal Cannula (09/14/182038) [facility] IP NURSE HANDOFF: [facility] hospital course events: Admitted to [facility] with TIA, transferred to [facility] with infection and nonviable flap (09/13). Hx: ruptured A-comm aneurysm with SAH in 2007. 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 Infection, multiple flap revisions. July [...] the oxymask vs Nasal Cannula (09/14/182038) [facility] IP NURSE HANDOFF: [facility] hospital course events: Admitted to [facility] with TIA, transferred to [facility] with infection and nonviable flap (09/13). Hx: ruptured A-comm aneurysm with SAH in 2007. 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 Infection, multiple flap revisions. July [...] - 09/18/2018 12:08 PM PDTNursing Handoff [facility] IP NURSE HANDOFF: [facility] hospital course events: Admit: Admitted to [facility] wi th TIA, transferred to [facility] with infection and nonviable flap (09/13). Hx: ruptured A-comm aneurysm with SAH in 2007. 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 Infection, multiple flap revisions. July [...] TIA at home and was admitted to [facility] b efore coming to [facility]. - Encourage increased po intake lan of Care - Georgia Bangura, PT - 09/18/2018 10:04 AM PDTPHYSICAL THERAPY CONTACT NOTE: Orders received, chart reviewed,patient is heading to OR on 09/19/18.Patient will be evaluat ed post surgery.RN updated.Patient is ad cadence in room with ambulation-as per conversation edith h RN. Georgia Bangura,[place] [id number] signed by Georgia Bangura PT at 09/18/2018 10:06 AM PDTHandoff - Marni Gracia RN - 09/18/2018 1:42 AM PDTNursing Handoff Patient Daily Goal: Go outside to 9th floor (09/17/18 0816) Patient Specific Preferences: prefers the oxymask vs Nasal Cannula (09/14/182038) [facility] IP NURSE HANDOFF: [facility] hospital course events: Admitted to [facility] with TIA, transferred to [facility] with infection and nonviable flap (09/13). Hx: ruptured A-comm aneurysm with SAH in 2007. 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 Infection, multiple flap revisions. July [...] TIA at home and was admitted to [facility] b efore coming to [facility].(left side droop) - Encourage increased po intake [...] the oxymask vs Nasal Cannula (09/14/182038) [facility] IP NURSE HANDOFF: [facility] hospital course events: Admitted to [facility] with TIA, transferred to [facility] with infection and nonviable flap (09/13). Hx: ruptured A-comm aneurysm with SAH in 2007. 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 Infection, multiple flap revisions. July [...] TIA at home and was admitted to [facility] b efore coming to [facility].(left side droop) - Encourage increased po intake [...] the oxymask vs Nasal Cannula (09/14/182038) [facility] IP NURSE HANDOFF: [facility] hospital course events: Admit: Admitted to [facility] wi th TIA, transferred to [facility] with infection and nonviable flap (09/13). Hx: ruptured A-comm aneurysm with SAH in 2007. 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 Infection, multiple flap revisions. July [...] the 9K deck with her brother and zqczhu-na-ypa Recommendations Forward: - Scalp rotational flap planned [...] home and was admitted to [facility] efore coming to [facility]. - Encourage increased po intake - Bowel Incontinence 09/16- hold ss Barriers to discharge: OR Tuesday andoff - Ashley Garcia RN - 09/17/2018 5:52 AM PDTNursing Handoff [facility] IP NURSE HANDOFF: [facility] hospital course events: Admit: Admitted to [facility] th TIA, transferred to [facility] with infection and nonviable flap (09/13). Hx: ruptured A-comm aneurysm with SAH in 2007. 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 Infection, multiple flap revisions. July [...] home and was admitted to [facility] efore coming to [facility]. - Encourage increased po intake - Bowel Incontinence 09/16- hold ss Barriers to discharge: OR Tuesday androhith - Shabana Rogel RN - 09/16/2018 6:19 PM PDTNursing Handoff [facility] IP NURSE HANDOFF: [facility] hospital course events: Admit: Admitted to [facility] TIA, transferred to [facility] with infection and nonviable flap (09/13). Hx: ruptured A-comm aneurysm with SAH in 2007. 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 Infection, multiple flap revisions. July [...] TIA at home and was admitted to [facility] b efore coming to [facility]. - Encourage increased po intake lan of Care - Tom Harman PT - 09/16/2018 9:26 AM PDTPhysical Therapy Contact Note: Chart reviewed, RN consulted. Per RN, pt currently cleared to be up ad cadence. Plans to go to the OR on 09/19, will follow up following procedure. David Harman PT, DPT Pager: [phone] andoff - Odette Garcia RN - 09/16/2018 5:31 AM PDTNursing Handoff Patient Daily Goal: Get some rest (09/15/182010) Patient Specific Preferences: prefers the oxymask vs Nasal Cannula (09/14/182038) [facility] IP NURSE HANDOFF: [facility] hospital course events: [...] cranioplasty with the Neurosurgery team 05/09, at [facility] time Dr White/Tesha performed a rotation [...] facial drooping at home and went to [facility] ED, CT head that was reportedly negative. At ED it was noted she had foul smelling disch arge from wound, contacted her [facility] and referred to [facility] ED. No records of ED visit on [...] CMP WNL, lactate 1.4. Imaging from OSH ([facility] in [place]) being pushed ENT evaluated and await final [...] Tuesday lan of Care - Venus Basurto [facility] - 09/15/2018 1:55 PM PDTFormatting of this note might be different from t he original. Social Work Psychosocial Assessment Purpose of the Interview: Nurse referral, patient stating that she may not want surgery, wo rried about getting her 'affairs' together Current Living Situation: Patient lives at home by herself in [facility]. Current Social Supports: Patient has a son and daughter in law that live nearby. They stop by in the evenings after work to assist patient with things as needed. Patient has a daugh ter in the [place] area, who stays 'very busy with work.' She has a brother in the [place] area who supports patient as much as able as well. Financial/Insurance status/ Employment/Education or Vocational training: Patient is covered by Medicare. She is retired. No financial concerns discussed. Activities/Spirituality: Not discussed. Medical issues: Patient Active Problem List Diagnosis Chronic obstructive pulmonary disease (HCC) HTN (hypertension) Chronic pain Skull defect Coronary arteriosclerosis in [place] artery History of non-ST elevation myocardial infarction [...] Family Medicine [address] [place] [address] Mental health history: Nothing noted in chart [...] call or page if needed. JUSTINA Peña, [facility] Dressing Room Attendant [facility] P [phone], [id number] lan of Care - Daniel Wolff i RIB PULLER - 09/15/2018 9:22 AM PDTFormatting of this [...] the oxymask vs Nasal Cannula (09/14/182038) [facility] IP NURSE HANDOFF: [facility] hospital course events: [...] with the Neurosurgery team 05/09, at [facility] time Dr White/Tesha performed a rotation advancement [...] facial drooping at home and went to [facility] ED, CT head that was reportedly negative. At ED it was noted she had foul smelling disch arge from wound, contacted her [facility] and referred to [facility] ED. No records of ED visit on [...] CMP WNL, lactate 1.4. Imaging from OSH ([facility] in [place]) being pushed ENT evaluated and await final recs Once stable, the patient was transferred to the Emergency Department Observation Unit with a diagnosis of possible surgical wound infection for continuation of care including observat ion SAFETY Patient/Family Target: Gloria will ambulate safely ad cadence Progress to Target: Improving As evidenced by: Gloria is up ad cadence in . Continue to [facility] as she has occassionally endorsed blurry v [...] 09/27/2018 | | 13:25:22DT: 09/27/2018 13:31:49Job #: [id number] | | | |Addendum: This woman had Integra used to reconstruct her scalp. The size of the Integra w as 14 x 5 cm. This was laid into the wound and secured with genoveva and then a dressing columba lied to it. | | | | | | | |Ata White MD | |CHANDRIKA/NGUYEN | | | | | | /[id number] | + + OPERATION RECORD (09/22/2018 11:27 AM PDT) + + | Procedure Note | + + | Ata White MD - 09/22/2018 11:27 AM PDT Date of Service: 09/19/2018 Attending | | Surgeon:Ata White MD Plaster Form Maker(s):Augusto Shaikh MD.Preoperative Diagnosis: | | Partially necrotic [...] 09/26/2018 12:12:19DT: | | 09/26/2018 12:30:21Job #: [id number] | |Ata White MD | |MW/MODL | | | | | | /[id number] | + + CBC (HEMOGRAM) ONLY (09/22/2018 [...] [facility] | [address] | [place] [address] | | | SERVICES, CORE | PARK [...] | + + + + + | [facility] | [address] | [place] [address] | | | SERVICES, RYAN | RAMSES [...] | + + + + + | [facility] | [address] | [place] [address] | | | SERVICES, CORE | RAMSES [...] [facility] | [address] | [place] [address] | | | RYAN ORNELAS | RAMSES [...] [facility] | [address] | [place] [address] | | | SERVICES, CORE | PARK [...] equation recommended by the National | [facility] | | Kidney Disease Education Program. Estimated [...] + + + + + | [facility] | [address] | [place] [address] | | | JOHNSON, RYAN | PARK [...] [facility] | [address] | [place] [address] | | | SERVICES, CORE | PARK [...] [facility] | [address] | [place] [address] | | | SERVICES, CORE | PARK [...] + + + + + | [facility] | [address] | [place] [address] | | | SERVICES, CORE | RAMSES [...] + + + + + | [facility] | [address] | [place] [address] | | | SERVICES, CORE | PARK [...] MDRD equation recommended by the National | [facility] | | Kidney Disease Education Program. Estimated [...] | + + + + + | [employer] [facility] | [address] | [place] [address] | | | SERVICES, CORE | [address] | | | + + + + + OPERATION RECORD (09/19/2018 5:44 PM PDT) + + + | Narrative | Performed At | + + + | Alfreda Mccollum MD 10/03/2018 3:27 PM Date of Procedure: | | | 09/19/18 Attending Surgeon: Alfreda Mccollum | | | Plaster Form Maker(s): | | | Diana Richey MD, Dillan [...] | | | the operative room on [facility]. General anesthesia was | | | induced by the neuroanesthesia team. The eyes were taped shut to | | | prevent corneal abrasion. The patient was placed in the supine | | | position, and all pressure points were carefully padded. The head | | | was secured in the horseshoe pile header. The hair over the area was [...] | Dillan Bridges MD Neurosurgery, PGY-2 Pager [phone] I | | | certify that I was present for and participated in the critical | | | parts of the procedure. I further certify that I was the principal | | | neurosurgeon for this procedure. Alfreda Mccollum MD | | | Clinical Instructor & Skull Base Fellow [id number] Department of | | | Neurological Surgery [facility], [place] | | | | | + + [...] [facility] | [address] | [place], [place] | | | MISTY POINT OF CARE | [address] | [address] | | | TESTS | | | [...] + | [facility] - | [address] | [place] [address] | | | [place] | | | | + + + [...] + | [facility] - | [address] | [place] [address] | | | [place] | | | [...] + | [facility] - | [address] | [place] [address] | | | [place] | | | [...] + | [facility] - | [address] | [place] [address] | | | [place] | | | [...] | polymorphonuclear cells No organisms seen | [place] | + + + + + + [...] + + + + | [facility] - | [address] | [place] [address] | | | [place] | | | | + + + [...] detected | AIRPORT - | | | [facility] | + + + + + + + + | Performing | Address | City/State/Zipcode | Phone Number | | Organization | | | | + + + + + | [facility] - | [address] | [place] [address] | | | [place] | | | [...] DEPT OF | [address] | [place], [place] | | | CARDIOLOGY | [address] | [address] | | + + + + + [...] - ERNESTO | [address] | [place], [place] | | | [place] [facility] | [address] | [address] | | | TESTS | | | [...] | + + + + + | [facility] | [address] | [place] [address] | | | SERVICES, RYAN | RAMSES [...] MDRD equation recommended by the National | [facility] | | Kidney Disease Education Program. Estimated [...] | + + + + + | [facility] | [address] | [place] [address] | | | SERVICES, CORE | RAMSES [...] | + + + + + | [facility] | [address] | [place] [address] | | | SERVICES, RYAN | RAMSES [...] [facility] | [address] | [place] [address] | | | SERVICES, | [address] [...] | + + + + + | [employer] | [address] | [place] [address] | | | SERVICES, | [address] [...] | + + + + + | [facility] | [address] | [place] [address] | | | SERVICES, CORE | PARK [...] | + + + + + | [facility] | [address] [facility] | [place] [address] | | | SERVICES, CORE | RAMSES [...] [facility] | [address] | [place] [address] | | | SERVICES, CORE | PARK [...] [facility] | [address] | [place] [address] | | | SERVICES, CORE | P[address] [...] | + + + + + | [facility] | [address] | [place] [address] | | | SERVICES, CORE | RAMSES [...] + + + + + | [facility] | [address] | [place] [address] | | | SERVICES, CORE | [address] | | | + + + + + MAGNESIUM, PLASMA (09/17/2018 8:10 AM PDT) + +-------+ + + + | Component | Value | Ref Range | Performed | Pathologist | | | | | At | Signature | + +-------+ + + + | MAGNESIUM,P | 2.5 | 1.6 - 2.6 mg/dL | [facility] | | | [facility] | | | [...] + + + + + | [facility] | [address] | [place] [address] | | | SERVICES, CORE | RAMSES [...] equation recommended by the National | [facility] | | Kidney Disease Education Program. Estimated [...] + + + + + | [facility] | [address] | [place] [address] | | | SERVICES, CORE | [address] | | | + + + + + MAGNESIUM, PLASMA (09/16/2018 9:24 AM PDT) + +-------+ + + + | Component | Value | Ref Range | Performed | Pathologist | | | | | At | Signature | + +-------+ + + + | MAGNESIUM,P | 2.4 | 1.6 - 2.6 mg/dL | [facility] | | | [facility] | | | [...] [facility] | [address] | [place] [address] | | | SERVICES, CORE | [address] [...] | + + + + + | [facility] | [address] [facility] | [place] [address] | | | SERVICES, CORE | P[address] [...] | [facility] | [address] [facility] | [place] [address] | | | SERVICESRYAN | [address] [...] [facility] | [address] | [place] [address] | | | SERVICES, CORE | [address] [...] + + + + + | [facility] | [address] [facility] | [place] [address] | | | JOHNSON, RYAN | [address] [...] | + + + + + | [facility] | [address] | [place] [address] | | | JOHNSON, RYAN | [address] [...] + | [facility] - | [address] | [place] [address] | | | [facility] | | | | + + [...] [facility] | [address] | [place], [place] | | | [facility] | [address] | [address] | | | TESTS | | | [...] | + + + + + | [facility] | [address] | [place] [address] | | | SERVICES, RYAN | [address] [...] | + + + + + | [facility] | [address] | [place] [address] | | | SERVICES, CORE | [address] [...] [facility] | [address] | [place] [address] | | | SERVICES, CORE | [address] [...] | + + + + + | [employer] | [address] | [place] [address] | | | SERVICES, | [address] [...] [facility] | [address] | [place] [address] | | | SERVICES, CORE | RAMSES [...] >60 mL/min | [facility] | | | -[facility] | | | [facility] | | | [...] | + + + + + | [employer] | [address] | [place] [address] | | | SERVICES, RYAN | [address] | | | + + + + + ED INFORMATION EXCHANGE (09/13/2018 8:24 PM PDT) + + | Specimen | + + | | + + + + + | Narrative | Performed At | + + + | [facility]?NOTIFICATION?09/13/2018 20:23?GLORIA ADHIKARI?MRN: | [facility] | | [id number] Criteria Met 5 Visits In 12 Months [...] E.D. Visit Count (12 mo.) Facility Visits [facility] | | | [facility] 3 [facility] 2 Total 5 Note: | | | Visits indicate total known visits. Recent Emergency Department | | | Visit Summary Date Facility City State Type Diagnoses or Chief | | | Complaint Sep 13, 2018 [facility] [place] | | | [place] Emergency 10,800. post op comp Sep 12, 2018 [facility] | | | [place] Emergency Chief Complaint: POST OP ISSUE | | | July 10, 2018 [facility] [place] Emergency | | | 10,800. CRANIAL PLASTY ISSUE 18,400. Disruption of | | | external operation (surgical) wound, not elsewhere classified, | | | initial encounter 18,400. Other specified postprocedural states | | | May 14, 2018 [facility] [place] | | | Emergency 10,800. post-op complications, open head wound | | | post-op 18,400. Other acquired deformity of head Dec 02, | | | 2017 [facility] [address] [place] Emergency Extradural and | | | subdural abscess, unspecified Headache Chronic obstructive | | | pulmonary disease, unspecified Old myocardial infarction | | | intermediate frame tender (current) use of aspirin Personal history of nicotine | | | dependence Other half-way (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 therapy Allergy | | | status to other antibiotic agents status Allergy status to other | | | drugs, medicaments and biological substances status Allergy | | | status to sulfonamides status Recent Inpatient Visit | | | Summary Date Facility [facility] State Type Diagnoses or Chief Complaint | | | Aug 03, 2018 [facility] [place] Ear, Nose, | | | Throat 18,400. Disruption of external operation (surgical) | | | wound, not elsewhere classified, initial encounter July 10, 2018 | | | [facility] [place] Inpatient | | | 18,400. Other specified postprocedural states 18,400. | | | Disruption of external operation (surgical) wound, not elsewhere | | | classified, initial encounter May 14, 2018 [facility] | | | [facility] [place] Neuro Surgery 18,400. Other | | | acquired deformity of head May 08, 2018 [facility] | | | [place] Neuro Surgery 18,400. Other acquired | | | deformity of head 18,400. 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 Nontraumatic subarachnoid hemorrhage, unspecified Dec 03, | | | 2018 [facility] [place] Neuro Surgery | [...] Portal This patient has registered at the [facility] | | | [place] Emergency Department For more information visit: | | | [email or web address] | | | [email or web address] PLEASE NOTE: 1. Any care recommendations and [...] or completeness of information provided. ? 2019 [employer] | | | [employer] - [email or web address] | | + + + + + [...] Visit Count (12 | | mo.)Facility Visits [facility] 3 [facility] 2 | | Total 5 Note: Visits indicate total known visits. Recent Emergency Department Visit | | SummaryDate Facility City State Type Diagnoses or Chief Complaint Sep 13, 2018 [place] | | [facility] [place] Emergency 10,800. post op comp Sep 12, 2018 | | [facility] [place] Emergency Chief Complaint: POST OP ISSUE July 10, 2018 | | [facility] [place] Emergency 10,800. CRANIAL PLASTY ISSUE | | 18,400. Disruption of external operation (surgical) wound, not elsewhere classified, | | initial encounter 18,400. Other specified postprocedural states May 14, 2018 [place] | | [facility] [place] Emergency 10,800. post-op complications, | | open head wound post-op 18,400. Other acquired deformity of head Dec 02, 2017 [facility] | | [facility] [place] Emergency Extradural and subdural abscess, unspecified | | Headache Chronic obstructive pulmonary disease, unspecified Old myocardial | | infarction intermediate frame tender (current) use of aspirin Personal history of nicotine | | dependence Other half-way (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 therapy Allergy status to other | | antibiotic agents status Allergy status to other drugs, medicaments and biological | | substances status Allergy status to sulfonamides status Recent Inpatient Visit | | SummaryDate Facility [facility] State Type Diagnoses or Chief Complaint Aug 03, 2018 [place] | | [facility] [place] Ear, Nose, Throat 18,400. Disruption of | | external operation (surgical) wound, not elsewhere classified, initial encounter June | | 2018 [facility] [place] Inpatient 18,400. Other | | specified postprocedural states 18,400. Disruption of external operation (surgical) | | wound, not elsewhere classified, initial encounter May 14, 2018 [facility] | | [facility] [place] Neuro Surgery 18,400. Other acquired deformity of head | | May 08, 2018 [facility] [place] Neuro Surgery 18,400. | | Other acquired deformity of head 18,400. 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 | | Nontraumatic subarachnoid hemorrhage, unspecified Dec 03, 2017 [facility] | | [facility] [place] Neuro Surgery 18,400. Other [...] patient has registered at the | | [facility] Emergency Department For more information visit: | | [email or web address] PLEASE | | NOTE: 1. Any care [...] completeness of information | | provided.? 2019 [employer] | | Allergy status to other antibiotic agents status | | Allergy status to other drugs, medicaments and biological substances status | | Allergy status to sulfonamides status | | | | | | | |Recent Inpatient Visit Summary | |Date Facility City State Type Diagnoses or Chief Complaint | |Aug 03, 2018 [facility] [place] Ear, Nose, Throat | | 18,400. Disruption of external operation (surgical) wound, not elsewhere classified, init ial encounter | | | |July 10, 2018 [facility] [place] Inpatient | | 18,400. Other specified postprocedural states | | 18,400. Disruption of external operation (surgical) wound, not elsewhere classified, ini tial encounter | | | |May 14, 2018 [facility] [place] Neuro Surgery | | 18,400. Other acquired deformity of head | | | |May 08, 2018 [facility] [place] Neuro Surgery | | 18,400. Other acquired deformity of head | | 18,400. Communicating hydrocephalus | | 18,400. Nontraumatic subarachnoid hemorrhage, unspecified | | | |Dec 03, 2017 [facility] [place] Neuro Surgery | [...] | |This patient has registered at the [facility] Emergency Departmen t | |For more information visit: [email or web address] | |PLEASE NOTE: | | 1. Any [...] information provided. | | | |? 2019 [employer]. - [email or web address] | + + + + + + + | Performing | Address | City/State/Zipcode | Phone Number | | Organization | | | | + + + + + | [facility] | [address] | [place], [place] | [phone] | | [employer] | [address] | [address] | | + + + + + documented in this encounter Visit Diagnoses + + | Diagnosis | + + | Postoperative surgical complication involving skin associated with dermatologic | | procedure, unspecified complication - Primary | + + | Skull defect Unspecified acquired deformity of head | + + | HTN (hypertension) Unspecified essential hypertension | + + | CAD in [place] artery Coronary atherosclerosis of [place] coronary artery | + + | HLD [...] | | | | ONCE, 1 dose, [facility] 09/21/18 at 1815 | | PM [...]
--- OUTSIDE RECORDS SUMMARY | ~2019-10-16 | XMS | Encounter Summary ---
Demographics + + + | Address | [address] | | | [place] [address] | + + + | Home Phone [...] Providers + +------+ + | Care Telephone Exchange Operator Name | Role | Phone | [...] | | | | | | | [id number] | | | | | | | [facility] | | | | | | | [place], | | | | | | | [place] [address] | | | | | | | Phone: | | | | | | | [phone] | +--------+--------+ + + + + Encounter Details +--------+---------+ + + + | Date | Type | Department | Care Team | Description | +--------+---------+ + + + | 05/13/ | Office | Neurosurgery at | Paramjit Huber MD | Communicating | | 2009 | Visit | [facility] [address] | [address] | Hydrocephalus | | | | [address] for | [place], [place] | (Primary Dx) | | | | [facility], | [address] | | | | | [facility] | [phone] | | | | | floor [place], [place] | | | | | | [address] | | | | | | [phone] | | | +--------+---------+ + + + [...] aneurysm, she did eventually require placement of PSYCHIATRIC CLINICAL NURSE SPECIALIST shunt. She was seen in the ED [...]
--- OUTSIDE RECORDS SUMMARY | ~2019-10-16 | XMS | Encounter Summary ---
Demographics + + + | Address | [address] | | | [place] [address] | + + + | Home Phone [...] Team Providers + +------+ + | Care Wet Pour Mixer Name | Role | Phone | [...] | | | | | | [place] [address] | | | +--------+ + + + [...]
--- OUTSIDE RECORDS SUMMARY | ~2019-10-16 | XMS | Encounter Summary ---
Demographics + + + | Address | [address] | | | [place] [address] | + + + | Home Phone [...] Team Providers + +------+ + | Care Manometer Technician Name | Role | Phone | [...] + + | 09/18/ | Telephone | [facility] | Chana Luu, | Records Request | | 2015 | | CARDIOLOGY [address] | MD [address] | (FROM [facility]) | | | | [place], | [place], [place] | | | | | [place] [address] | [address] | | | | | [phone] | | | +--------+ + + + [...] 12:18 PM PDTFaxed to Venus Ball at [facility] the following, including copier field service technician of [facility] request, as requested by Lucille/pocket assembler: Dr. Luu office notes of 09-18-15 and 06-17-15 Also, I have scanned [facility] request in this patient's documents. documented in this encounter Plan of Treatment Not on filedocumented as of this encounter Visit Diagnoses Not on filedocumented in this encounter"
--- OUTSIDE RECORDS SUMMARY | ~2019-10-16 | XMS | Encounter Summary ---
Demographics + + + | Address | [address] | | | [place] [address] | + + + | Home Phone [...] Team Providers + +------+ + | Care Drip Molder Name | Role | Phone | [...] | | | | Loop Physician's | [place], [place] | | | | | [place], [facility] floor | [address] | | | | | [place], [place] | [phone] | | | | | [address] | | | | | | [phone] | | | +--------+ + + + [...]
--- OUTSIDE RECORDS SUMMARY | ~2019-10-16 | XMS | Encounter Summary ---
Demographics + + + | Address | [address] | | | [place] [address] | + + + | Home Phone [...] Team Providers + +------+ + | Care Stone Gang Sawyer Name | Role | Phone | + [...] | | CT HEAD WO | [address] | | | | | | [address] | Rd | | | | | | | [place], [place] | | | | | | | [address] | | | | | | | Phone: | | | | | | | [phone] | | | | | | | Fax: | | | | | | | [phone] | | +--------+--------+ + + + + [...] | | | CT HEAD WO | [facility] | | | | | | CONTRAST | Rd | | | | | | | [place], [place] | | | | | | | [address] | | | | | | | Phone: | | | | | | | [phone] | | | | | | | Fax: | | | | | | | [phone] | | +--------+--------+ + + + + Encounter Details +--------+ + + + + | Date | Type | Department | Care Team | Description | +--------+ + + + + | 10/02/ | Hospital | Diagnostic Imaging | | | | 2015 | Encounter | Services at [facility] | | | | | | [address] | | | | | | Nora Funes [facility] | | | | | | [address] | | | | | | [place], [place] | | | | | | [address] | | | | | | [phone] | | | +--------+ + + + [...] | | | | | | approach SHOE SINGER shunt | | | | | | [...] frontalapproach | | | | | | SHOE SINGER shunt catheter with | | | | [...]
--- OUTSIDE RECORDS SUMMARY | ~2019-10-16 | XMS | Encounter Summary ---
Demographics + + + | Address | [address] | | | [place] [address] | + + + | Home Phone [...] Team Providers + +------+ + | Care Machinist Linotype Name | Role | Phone | + [...] [address] | | | | | [facility] | Nora Funes [place], | | | | | Hospital Admitting | [place] [address] | | | | | Desk Located on the | [phone] | | | | | 9th floor | | | | | | [place], [place] | Werner Bender | | | | | [address] | MD Wilver [address] | | | | | | [address] | | | | | | [place], [place] | | | | | | [address] | | | | | | [phone] | | | | | | | [...] | | | | | drive from [employer]); 08/11/18; | | | | | [address]6 [...] Cuffed; 08/03/18; 1938 | MD Napoleon | WALL STEAMER | +--------+ + + + | Periph [...] - 08/03/2018 9:00 PM PDT Cielo Bell [id number] Vitals Value Taken Time BP 116/59 08/03/2018 [...] continued monitoring . nesthesia Procedure Notes - Wrener Bender MD - 08/03/2018 11:52 AM PDTAssociated [...] Werner Bender MD - 08/03/2018 10:41 AM [facility] Marsha Bell [id number] NPO: 0000 08/03 Last Vitals Temp: 36.4 [...] STEMI s/p BMS (denies symptoms since last TN ~2 years prior, took metoprolol t his [...] infarction. NSR. Summary: -- Echo (03/02/[facility]): TDS, EF 35-40%, apical 1/3 is aneurysmal, [...] D 12/2015) medically managed cardiac stents past TN Last TN: > 1 year valvular problems /murmurs AR [...] | | | | | | Starting [facility] 08/03/18 at 1413, | | | [...] 11:19 | | | | | Starting [facility] 08/03/18 at 1119, | | AM PDT | | | | | Until [facility] 08/03/18 at 1940 | | | | | | + +---------+ +-------+---+---+ +---+---+ | | | +---+---+ + + + + +-------+---+ | rocuronium (ZEMURON) injection | Rate/Dos | 08/04/19 | 3.5 | 1.01 | | | INTRAPROCEDURE CONTINUOUS PRN, | e Change | 19 2:16 | mcg/kg/m | mL/hr | | | Starting [facility] 08/03/18 at 1141, | | PM PDT | in | | | | Until [facility] 08/03/18 at 1940 | | | [...]
--- OUTSIDE RECORDS SUMMARY | ~2019-10-16 | XMS | Encounter Summary ---
Demographics + + + | Address | [address] | | | [place] [address] | + + + | Home Phone [...] Team Providers + +------+ + | Care Collection Support Specialist Name | Role | Phone [...] + | 02/24/ | Telephone | [facility] | Chana Luu, | Appointment | | 2015 | | CARDIOLOGY [address] | MD [address] | | | | | [place], | [place] | | | | | [place] [address] | [address] | | | | | [phone] | | | +--------+ + + + [...]
--- OUTSIDE RECORDS SUMMARY | ~2019-10-16 | XMS | Encounter Summary ---
Demographics + + + | Address | [address] | | | [place] [address] | + + + | Home Phone [...] Team Providers + +------+ + | Care Agile Coach Name | Role | Phone | [...] | Infectious | Saskia Nicolas MD | [facility] line | | 2018 | | Diseases at [facility] | [address] | | | | | [address] | [facility] | | | | | Loop Physician's | [place], [place] | | | | | [place], 3rd floor | [address] | | | | | [place], [place] | [phone] | | | | | [address] | | | | | | [phone] | | | +--------+ + + + [...]
--- OUTSIDE RECORDS SUMMARY | ~2019-10-16 | XMS | Encounter Summary ---
Demographics + + + | Address | [address] | | | [place] [address] | + + + | Home Phone [...] Team Providers + +------+ + | Care Clerk Checker Name | Role | Phone | + +------+ + PCP | Unavailable | + +------+ + Encounter Details +--------+ + + + + | Date | Type | Department | Care Team | Description | +--------+ + + + + | 10/17/ | EKG Results | Cardiac | Other, Faculty | | | 2007 | Only | Non-Invasive Testing | [phone] | | | | | at [address] | | | | | | [address] | | | | | | [address] | | | | | | [place], [facility] floor | | | | | | [place], [place] | | | | | | [address] | | | | | | [phone] | | | +--------+ + + + [...] detailed | CARDIOLOGY | | interpretation from [employer] results. | | |results. | | | | | + + + + + + + + | Performing | Address | City/State/Zipcode | Phone Number | | Organization | | | | + + + + + | [facility] | [address] | [place], [place] | | | CARDIOLOGY | [address] | [address] | | + + + + + | [facility] | [address] | [place], [place] | | | CARDIOLOGY | [address] | [address] | | + + + + + documented in this encounter Visit Diagnoses Not on filedocumented in this encounter
--- OUTSIDE RECORDS SUMMARY | ~2019-10-16 | XMS | Encounter Summary ---
Demographics + + + | Address | [address] | | | [place] [address] | + + + | Home Phone | | + + + | Preferred Language | Unknown | + + + | Marital Status | | + + + | Gnosticist Affiliation | Unknown | + + + | Race | White | + + + | Ethnic Group | Not or | + + + Author + + + | Author | [facility] | | | and [place] | + + + | Organization | [facility] | | [...] Team Providers + +------+ + | Care Field Sales Trainer Name | Role | Phone | [...] + | 01/29/ | Telephone | [facility] | Chana Luu, | Records Request | | 2014 | | CARDIOLOGY [address] | MD [address] | | | | | [place], | [place] | | | | | [place] [address] | [address] | | | | | [phone] | | | +--------+ + + + [...] PM PSTFaxed request received from Venus at [facility] Neurosurgery to fax most recent records to them. Faxed to Attn: Venus at [facility] Neurosurgery fax number [phone], as Venus requested by fax: Hospital Discharge Summary 12-29-14 Echo 12-28-14 NSTEMI 12-28-14 EKG 12-28-14 Labs 12-29-14 Notation on coversheet: "Pt has a hospital follow-up appointment scheduled with Dr. Ramiro ni on 02-17-15." documented in this encou nter Plan of Treatment Not on filedocumented as of this encounter Visit Diagnoses Not on filedocumented in this encounter
--- OUTSIDE RECORDS SUMMARY | ~2019-10-16 | XMS | Encounter Summary ---
Demographics + + + | Address | [address] | | | [place] [address] | + + + | Home Phone [...] + + + | Author | [facility] | | | and [place] | + + + | Organization | [facility] | | | [...] Team Providers + +------+ + | Care Radar Technician Name | Role | Phone | [...] | | [facility] | I, Radiation Oncology Nurse | pain, unspecified | | | | [address] [place] | | chronicity; Fatigue, | | | | [place], [place] | | unspecified type | | | | [address] | | | | | | [phone] | | | +--------+ + + + [...] + | [address] | [address] | [place] | [phone] | | [facility] | | [address] | | | - LABORATORY | | [...] [address] | [place] | [phone] | | [facility] | | [address] | | | - LABORATORY | | [...] mL/min/1.73m2 | [facility] | | | Hungarian | RATE,ESTIMATED | | MEDICAL | | | | mL/min/1.23q7Ndwt than | | CENTER - | | [...] [address] | [place] | [phone] | | [facility] | | [address] | | | - LABORATORY | | | | + + + + + documented in this encounter Visit Diagnoses + + | Diagnosis | + + | Bilateral shoulder pain, unspecified chronicity | + + | Fatigue, unspecified type | + + documented in this encounter"
--- OUTSIDE RECORDS SUMMARY | ~2019-10-16 | XMS | Encounter Summary ---
Demographics + + + | Address | [address] | | | [place] [address] | + + + | Home Phone [...] Team Providers + +------+ + | Care Gaming Dealer Name | Role | Phone | + [...] | | | | | site, | [place], [place] | | | | | | unspecified | [address] | | | | | | type (HCC) | Phone: | | | | | | Skull defect | [phone] | | | | | | Procedures | Fax: | | | | | | [place] | [phone] | | | | | | STEREOTACTIC [...] | | | e Center for | [address] | | | | | Health and Healing, | [place], [place] | | | | | [address] | [address] | | | | | floor [place], [place] | [phone] | | | | | [address] | | | | | | [phone] | | | +--------+ + + + [...] within 30 days of PMC for synthetic aircraft engine mechanic nioplasty. eale Granger - Nettie Jaramillo PA [...] Ball - 01/10/2018 2:24 PM PSTCall to [facility], spoke to hector Raygoza completed 01/09. [...] AM PSTCT order has been faxed to [facility] at fax number [phone]. Transmission of fax confirmed 01/04/18 at 9:59AM. Routing to managed care for insurance authorization. elephone Encounter - Nettie Jaramillo PA - 01/03/2018 1:[address] wwo contrast to be performed on 01/09 or 01/10 at [facility] in [place] in follow up of epidural abscess/osteomyelitis. Please [...]
--- OUTSIDE RECORDS SUMMARY | ~2019-10-16 | XMS | Encounter Summary ---
Demographics + + + | Address | [address] | | | [place] [address] | + + + | Home Phone [...] Team Providers + +------+ + | Care Direct Chill Caster Name | Role | Phone | + [...] cheduled | Medicine Clinic at | [facility] | | | | | MPV 4th Floor Day | Road [place], [place] | | | | | Stay [address] | [address] | | | | | [address] | | | | | | Mailcode: [id number] | | | | | | [facility] | | | | | | [address] [place], [place] | | | | | | [address] | | | | | | [phone] | | | +--------+ + + + [...] - [facility]/09/2008 9[facility]58 [facility] mpleted 04/09/08. See Centricity. Nneka Machado, ARNP documented in this encounter Plan of Treatment Not on filedocumented as of this encounter Visit Diagnoses Not on filedocumented in this encounter"
--- OUTSIDE RECORDS SUMMARY | ~2019-10-16 | XMS | Encounter Summary ---
Demographics + + + | Address | [address] | | | [place] [address] | + + + | Home Phone [...] Team Providers + +------+ + | Care Delivery Truck Driver Name | Role | Phone | [...] [place] | | | | | [facility] for | [facility] | | | | | Health and Healing, | [place], [place] | | | | | Building [address], | [address] | | | | | floor [place], [place] | [phone] | | | | | [address] | | | | | | [phone] | | | +--------+ + + + [...] plan Piotr Townsend MD Neurosurgery Resident Pager #[phone] NSGY pager #[phone] documented in this e ncounter Plan of Treatment Not on filedocumented as of this encounter Visit Diagnoses Not on filedocumented in this encounter
--- OUTSIDE RECORDS SUMMARY | ~2019-10-16 | XMS | Encounter Summary ---
Demographics + + + | Address | [address] | | | [place] [address] | + + + | Home Phone [...] Providers + +------+ + | Care Supervisor Coil Winding Name | Role | Phone | + [...] + + | 05/14/ | Hospital | [facility] 10K 8[address] Machelle Ruiz MD | | | 2019 - | Encounter | [place] | [address] | | | | | [id number] | [address] [place], | | | 05/17/ | | [place] | [place] [address] | | | 2018 | | [place] [address] | [phone] | | | | | [phone] | | | | | | | Manas Spear MD | | | | | | [address] | | | | | | [place], [place] | | | | | | [address] | | | | | | [phone] | | | | | | | | | | | | Paramjit Huber MD | | | | | | [address] | | | | | | [place], [place] | | | | | | [address] | | | | | | [phone] | | | | | | | [...] Huber MD PCP: Mary Vazquez PA-C Service: [facility] Neurosurgery Diagnoses Principal Final Diagnosis: Wound [...] Signs Please call the Neurosurgery clinic at [phone] with any questions Tuesday to Tuesday 8 A M - 4 PM. After hours, call [facility] at [phone] and ask to speak with the Neurosurgery resi dent medical numerical control operator if you have any of the following: - Difficulty breathing or shortness of breath; - Excessive bleeding or drainage from incision sites; - Fevers, chills, sweats; - Persistent nausea or vomiting; - Change in mental status; Other Discharge Orders and Instructions Please take a picture of your incision in 1 week (05/24/18), and email to jhonathan Rodriguez rosurgery nurse practitioner at: [email or web address] Diet Regular Regular diet- There are no [...] Time Provider Department Center 06/02/2018 2:00 PM [facility] [place] [place] [facility] Neurosurgery 06/26/2018 12:00 PM Ata White MD [place] [address] Otolaryngolo Condition On Discharge: Good Vital Signs [...] AGACNP Neurological Surgery 05/17/18, 12:30 PM [address] [id number] [place] [address] doramila cintron in this encounter Medications at [...] again and dehisces ELAINE Bee Neurological Surgery [facility] [address] [address] [address] Pager: [phone] ax, MD Ata - 05/15/2018 5:38 PM [...] greater than 25 minutes. MD CHANDRIKA Hansen/NGUYEN /[id number] signed by Ata White MD at 05/18/2018 [...] regarding this information please contact pharmacy, pager [phone] Mali Serrano PharmD, [facility] Clinical Pharmacist [facility] Ph: [phone], Pgr: [phone] Frankie Barber MD - 05/14/2018 9:32 PM PDTAssociated Order(s): IP CONSULT TO OTOLARYNGOLOGY HEAD AND NECK SURGERY CONSULT NOTE 05/14/2018 Attending: Dr. Bravo History of Present Illness: Cielo Bell [id number] is a 68 y.o. female being evaluated [...] Systems: See HPI for pertinent positives/negatives. 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 Tympanoplasty Right 1987 Lumpectomy of left breast 1978 Coronary stent placement 12/28/2014 status post stent placement in the mid LAD Removal of vp medical shunt Cholecystectomy Social History Substance Use Topics [...] (liver function tests) CAD in [place] artery s/p NSTEMI 12/27/2014; status post stent [...] Bladder suspension 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 Mortgage Loan Counselor shunt Tympanoplasty 1987 Lumpectomy of left breast 1979 Coronary stent placement 12/28/2014 status post stent placement in the mid LAD Removal of vp medical shunt Cholecystectomy Social History: Social History Social [...] tablet, Rfl: 0 Allergies: Allergies Allergen Reactions [place] Tar Hives Betadine [Povidone-Iodine (With Soap)] Rash [...] Please contact the Neurosurgery resident on-call pager [phone] with questions or concerns. Evans Quevedo MD MPH Neurological Surgery [facility] Notes Melanie Pierce RN - [...] underwent a synthetic custom cranioplasty at that [facility].The patient re-presented in November 2017, [...] Lashonda Quiros RN at 05/14/2018 7:53 PM PDTaMchelle Gaines MD - 019 3:58 PM PDT [...] tobacco abuse Coronary arteriosclerosis in [place] artery 03/06/2015 History of non-ST elevation myocardial [...] (HCC) 2007 Goiter CAD in [place] artery s/p NSTEMI 12/27/2014; status post stent placement in the mid LAD Abnormal LFTs (liver function tests) 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 Facility-Administered Medications: None Allergies Allergen Reactions [place] Tar Hives Betadine [Povidone-Iodine (With Soap)] Rash [...] 0.69 0.60 - 1.10 mg/dL EGFR - BURKINAN >60 >60 mL/min EGFR NON -BURKINAN >60 >60 mL/min SODIUM, PLASMA (LAB) 136 [...] 0.78 0.60 - 1.10 mg/dL EGFR - B[place]KINAN >60 >60 mL/min EGFR NON -BURKINAN >60 >60 mL/min SODIUM, PLASMA (LAB) 138 [...] co-wrote the ED Provider Note using the [employer] share function. I agree with the documentation [...] PDTNursing Handoff Patient Daily Goal: Sleep (05/15/18 0423) Patient Specific Preferences: "Likes the room warm" (05/15/18 4793) [facility] IP NURSE HANDOFF: [...] PDTNursing Handoff Patient Daily Goal: Sleep (05/15/18 0343) Patient Specific Preferences: "Likes the room warm" (05/15/18 6642) [facility] IP NURSE HANDOFF: [...] RN - 05/16/2018 1:28 PM PDTNursing Handoff [facility] IP NURSE HANDOFF: [...] PDTNursing Handoff Patient Daily Goal: Sleep (05/15/18 3953) Patient Specific Preferences: "Likes the room warm" (05/15/18 3727) [facility] IP NURSE HANDOFF: [...] Goal: "To figure out the plan" (05/15/18 2895) Patient Specific Preferences: "Likes the room warm" (05/15/18 6900) [facility] IP NURSE HANDOFF: [...] RN - 05/15/2018 3:03 PM PDTNursing Handoff [facility] IP NURSE HANDOFF: [...] | + + + + + | [facility] | [address] | [place] [address] | | | SERVICES, CORE | RAMSES [...] | + + + + + | [facility] | [address] | [place] [address] | | | SERVICES, CORE | PARK [...] + + | [facility] | [address] | [place] [address] | | | SERVICES, CORE | RAMSES [...] | | | LABORATORY | | | [place] | | | SERVICES, | | | [...] [facility] | [address] | [place] [address] | | | SERVICES, CORE | PARK [...] [facility] | [address] | [place] [address] | | | SERVICES, CORE | PARK [...] [facility] | [address] | [place] [address] | | | SERVICES, CORE | PARK [...] | epithelial cells No organisms seen | [place] | + + + + + + + + | Performing | Address | City/State/Zipcode | Phone Number | | Organization | | | | + + + + + | [facility] | [address] | [place] [address] | | | [place] | | | | + + + [...] [facility] | [address] | [place] [address] | | | SERVICES, CORE | PARK [...] | + + + + + | [facility] | [address] | [place] [address] | | | SERVICES, CORE | RAMSES [...] - [facility] | [address] | [place], [place] | | | [facility] | [address] | [address] | | | TESTS | | | | + + + + + CULTURE, BLOOD BACTI & YEAST [facility] (05/14/2018 1:53 PM PDT) + + [...] + + + + + | [facility] | [address] | [place] [address] | | | SERVICES, CORE | RAMSES [...] [facility] | [address] | [place] [address] | | | SERVICES, CORE | PARK [...] [facility] | [address] | [place] [address] | | | SERVICES, CORE | PARK [...] | | | LABORATORY | | | [place] | | | SERVICES, | | | [...] | + + + + + | [facility] | [address] | [place] [address] | | | SERVICES, CORE | RAMSES [...] | + + + + + | [facility] | [address] | [place] [address] | | | RYAN ORNELAS | RAMSES [...] | + + + + + | [facility] | [address] | [place] [address] | | | SERVICES, CORE | PARK [...]
--- OUTSIDE RECORDS SUMMARY | ~2019-10-16 | XMS | Encounter Summary ---
Demographics + + + | Address | [address] | | | [place] [address] | + + + | Home Phone | | + + + | Preferred Language | Unknown | + + + | Marital Status | | + + + | Episcopal Affiliation | Unknown | + + + [...] Team Providers + +------+ + | Care Taping Machine Operator Name | Role | Phone [...] + + | 02/08/ | Refill | [facility] | Luis Manuel Hammond, | Medication Refill | | 2019 | | CARDIOLOGY JENNIFER | [address] | | | | | [address] | [facility], | | | | | [place] | [place] [address] | | | | | [address] | [phone] | | | | | [phone] | | | +--------+--------+ + + + [...]
--- OUTSIDE RECORDS SUMMARY | ~2019-10-16 | XMS | Encounter Summary ---
Demographics + + + | Address | [address] | | | [place] [address] | + + + | Home Phone [...] Team Providers + +------+ + | Care Pocket Builder Name | Role | Phone | + +------+ + | Mary Vazquez PA-C | PCP | | + +------+ + Encounter Details +--------+ + + + + | Date | Type | Department | Care Team | Description | +--------+ + + + + | 05/14/ | Procedure | Diagnostic Imaging | | | | 2018 | Pass | Services at [facility] | | | | | | [address] | | | | | | [facility] | | | | | | [facility], [address] [place] [address] | | | | | | [place], [place] | | | | | | [address] | | | | | | [phone] | | | +--------+ + + + [...]
--- OUTSIDE RECORDS SUMMARY | ~2019-10-16 | XMS | Encounter Summary ---
Demographics + + + | Address | [address] | | | [place] [address] | + + + | Home Phone [...] Team Providers + +------+ + | Care On Site Services Specialist Name | Role | Phone | [...] + + | 05/08/ | Hospital | [facility] [address] | Magnolia Diego MD | | | 2019 - | Encounter | [address] | [address] | | | | | [id number] [facility] | [place], [place] | | | 05/10/ | | [facility], | [address] | | | 2018 | | [place] [address] | [phone] | | | | | [phone] | | | +--------+ + + + [...] Diego MD PCP: Mary Vazquez PA-C Service: [facility] Neurosurgery Diagnoses Principal Final Diagnosis: Right frontotemporal [...] AM Discharging Attending: MD Marni Woods PA-C [address] [facility] [id number] [place] [address] documented in t his encounter Discharge Instructions AttachmentsThe following attachments cannot be sent through Care Everywhere.Smoking Cessati on: Health Benefits: General Info (Arabic)documented in this encounter Medications at Time of [...] Care Unit Team Progress Note NSICU ASSIGNED #[id number] ICU Admission Reason Most Recent Value ICU [...] daily -prn IV hydralazine Coronary arteriosclerosis in [place] artery Yes Current Assessment & Plan -see [...] 4L but did not travel here to [facility] with it -stable on 4L NC -RT [...] Provider Role Specialty Ipt Critical Care Nsicu #[id number] Treatment Team Ipt Neurosurgery #[id number] Treatment Team Neurological Surgery Patient Lines/Drains/Airways Status [...] of Service: 05/09/2018 KOKO KNIGHT EPIC DEPARTMENT: [facility] ICU NEURO Place of Service:- Inpatient CSN: [id number] Suggested Modifier: None Suggested CPT: TO RETAIL DEPARTMENT MANAGER KOKO Hoang Author:KOKO KNIGHT [address] [address]Akalxiicicrrav signed by KOKO Hoang at 05/26/2018 1:38 [...] ASSESSMENT/PLAN: 68 y.o. 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 Neurologically intact. Transfer to cooper JOSE M EATON MD,PhD Resident Neurological Surgery Pgr. [phone] Associated attestation - Casey Hewitt MD - [...] medication information: see MAR. Functional Epidural: No FORM DRAFTER: No Respiratory: RR: 15 , O2 Sat: 93 % , O2 Delivery: Nasal cannula Breath Sounds: Ex DARIEN: LLL: RUL: RLL: MELISSA No Comment: Cardiac: BP: 116/61 HR: 67 GI: Nausea/Vomiting Status: No Signs/Symptoms: Interventions: Assessment: Comments: : Last void: goins Contact Name: Juan (sister in law) Contact Number: [phone] Family contacted: Yes Comment:Juan updated via phone. [...] Giovanni Vincent MD PGY-5 Neurological Surgery Pager [phone] documented in this enco unter H&P Notes Susy Vallecillo MD - 05/08/2018 1:14 PM PDTFormatting of this note might be different fr om the original. . Neuroscience Intensive Care Unit Attending H&P Note Attending Pager #[phone] ICU Admission Reason Most Recent Value ICU [...] Cardiovascular HTN (hypertension) Yes Coronary arteriosclerosis in [place] artery Yes Ischemic cardiomyopathy Unknown Respiratory/Chest Chronic obstructive pulmonary disease (HCC) Yes Digestive PONV (postoperative nausea and vomiting) Unknown Other History of non-ST elevation myocardial infarction (NSTEMI) Yes Tobacco dependence Yes Acute postoperative pain Unknown NSICU treatment team members Provider Role Specialty Ipt Critical Care Nsicu #[id number] Treatment Team Ipt Neurosurgery #[id number] Treatment Team Neurological Surgery Code Status Code [...] and the recent imaging available. Seen with PA/MANAGER FIXED INCOME Amaya Norton. Please see their note for details. I reviewed the documented findings, all data and the recent imaging available. Date of Service: 05/08/2018 Author:SUSY VALLECILLO MD [place] [phone] maya Norton, [facility] - 05/08/2018 1:00 PM PDT . Neuroscience Intensive Care Unit Team H&P Note NSICU ASSIGNED #[id number] 1 Days in ICU 1 Days in [...] stable and as approp Coronary arteriosclerosis in [place] artery Yes Current Assessment & Plan -see [...] Abnormal LFTs (liver function tests) CAD in [place] artery s/p NSTEMI 12/27/2014; status post stent placement in the mid LAD Chronic pain COPD on oxygen at night Essential hypertension GERD (gastroesophageal reflux disease) Goiter Hemorrhagic stroke ([facility]) 2007 aneurysm MRSA (methicillin resistant staph aureus) culture positive post cariotomy for SAH Otitis media recent abx preadmit PONV (postoperative nausea and vomiting) Subarachnoid hemorrhage due to ruptured aneurysm ([facility]) 2007 Tobacco dependence Past Surgical History Procedure Laterality Date Partial thyroidectomy Right Hysterectomy Bladder suspension 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 User Experience Researcher shunt Tympanoplasty Right 1987 Lumpectomy of left breast 1978 Coronary stent placement 12/28/2014 status post stent placement in the mid LAD Removal of vp hr diversity shunt Cholecystectomy Allergies Allergen Reactions Juana Diaz Tar Hives Betadine [Povidone-Iodine (With Soap)] Rash [...] Provider Role Specialty Ipt Critical Care Nsicu #[id number] Treatment Team Ipt Neurosurgery #[id number] Treatment Team Neurological Surgery Patient Lines/Drains/Airways Status [...] e. Date of Service: 05/08/2018 KOKO KNIGHT [facility] DEPARTMENT: ANE ICU NEURO Place of Service:- Inpatient CSN: [id number] Suggested Modifier: None Suggested CPT: TO RETAIL DEPARTMENT MANAGER KOKO Hoang Author:KOKO KNIGHT [address] [address]Sbaizmiwwslwwd signed by KOKO Hoang at 05/09/2018 11:10 [...] daily. Facility-Administered Medications: None Allergies Allergen Reactions Juana Diaz Tar Hives Betadine [Povidone-Iodine (With Soap)] Rash Cipro [Ciprofloxacin] Nausea and Vomiting Codeine Hcl Nausea and Vomiting Sulfa (Sulfonamide Antibiotics) Erythema Past Medical History: Diagnosis Date Abnormal LFTs (liver function tests) CAD in coe[place] artery Chronic pain COPD Essential hypertension GERD [...] Please contact the Neurosurgery resident on-call pager [phone] with questions or concerns. Vickie Estrada M.D., M.P.H. R2 Resident Physician Neurological Surgery Pager: [phone] signed by Magnolia Diego MD at 05/16/2018 9:09 AM PDTdocumented i n this encounter Procedure Notes Ata White MD - 05/08/2018 2:53 PM PDTAssociated Order(s): OPERATION RECORDDate of Service : 05/08/2018 Attending Surgeon:Ata White MD Flood Control Engineer(s):Abel Pratt MD Preoperative Diagnosis: Cranioplasty. Postoperative Diagnosis: [...] a running continuous fashion. MD CHANDRIKA Hansen/MODL /[id number] signed by Ata White MD at 05/08/2018 3:33 PM PDTDog Magnolia ov MD - 05/08/2018 1:14 PM PDTAssociated Order(s): OPERATION RECORDDate of Service: 05/08/2018 Attending Surgeon: Magnolia Diego MD Co-Surgeon: Ata White MD. Flood Control Engineer(s): Giovanni Vincent MD. Preoperative Diagnosis: Right frontotemporal [...] head was placed in a horseshoe head tennis professional, and all pressure points were carefully padded. [...] and then affixed them to th e [place] skull until they sat flush. Due to [...] further recovery. MD Magnolia Dudley MD CHANTALE/MODL /[id number] I, Dr. Magnolia Diego certify that I was present for and participated in the critical parts of the procedure. I further certify that I was the principal surgeon for this procedure. MAGNOLIA DIEGO MD [facility] [address] [facility] [address] documented in this encou nter Miscellaneous Notes [...] 4L but did not travel here to [facility] with it -stable on 4L NC -RT [...] Goal: sleep and go home tomorrow (05/09/181938) [facility] IP NURSE HANDOFF: Nesbitt hospital course events: [...] cranioplasty. She was discharged home with a [facility] and received IV ceftriaxone for 6 [...] had BM x2 this shift - RT foster care case manager left O2 tank (x2) at bedside for discharge. Pt continuing to need supplementa l O2 to keep O2 sats >88% Barriers to discharge: DC to home today AM?- Son Augusto will drive from [email or web address] to come [facility] k her up in the AM. andoff - Ricarda Navarro RN - 05/09/2018 2:54 PM PDTNursing Handoff Patient Daily Goal: no more stool softeners (05/09/18 5291) [facility] IP NURSE HANDOFF: Nesbitt hospital course events: [...] cranioplasty. She was discharged home with a [facility] and received IV ceftriaxone for 6 [...] had BM x2 this shift - RT foster care case manager left O2 tank (x2) at bedside for discharge. Pt continuing to need supplementa l O2 to keep O2 sats >88% Barriers to discharge: DC to home tomorrow AM- [facility] Augusto [facility] drive [facility] come p ick her up in the AM. andoff - John John RN - 05/09/2018 1:12 PM PDTNursing Handoff [facility] IP NURSE HANDOFF: Nesbitt hospital course events: [...] tomorrow AM. Son Augusto will drive from [email or web address] to come pick her up in the AM. RT foster care case manager left O2 tank (x2) at bedside for discharge. Pt continuing to need supplemental O2 to keep O2 sats >88% lan of Care - Rula Pacheco, PT - 05/09/2018 9:53 AM PDTFormatting of this note might be different from the orig inal. Physical Therapy Evaluation [id number] GLORIA BELL Hospital Day: 1 Date of [...] a 68 y.o. female HD#1 with CAD, TX s/p s tent on ASA/plavix, HTN, previous [...] Abnormal LFTs (liver function tests) CAD in [place] artery Chronic pain COPD Essential hypertension GERD (gastroesophageal reflux disease) Goiter Hemorrhagic stroke (HCC) 2007 MRSA (methicillin resistant staph aureus) culture positive Otitis media PONV (postoperative nausea and vomiting) Subarachnoid hemorrhage due to ruptured aneurysm ([facility]) 2007 Tobacco dependence Past Surgical History: Procedure Laterality Date BLADDER SUSPENSION CHOLECYSTECTOMY CORONARY STENT PLACEMENT 12/28/2014 HYSTERECTOMY LUMPECTOMY OF LEFT BREAST 1979 PARTIAL THYROIDECTOMY Right REMOVAL OF MOID MIDDLE SCHOOL TEACHER SHUNT REPAIR OF ANEURYSM BY CLIPPING TYMPANOPLASTY Right 1987 MOID MIDDLE SCHOOL TEACHER SHUNT Living Environment: Patient lives alone in [...] room air fluctuating from 85-91%. Outcome Measure: [facility] BASIC MOBILITY Difficulty turning over [...] w/railing 4 - None - Modified Independent/Independent [facility] Basic Mobility Total Score 24 Interpretation of [facility] Short Form - Basic Mobility: [...] repiratory DME needed for discharge RT DC Extractor Plant Operator delivered 2 tanks for patient discharge to home. Patient might stay with brother in [place] instead of go home to [place]. If patient goes to [place] and stays with her brother, RT DCP with have vendor deliver concen trator. Vendor is [facility] [place] [phone], and [facility] [phone]. The RT master planner will continue to follow . Pager [phone] with any questions. andoff - Nataliya Martinez RN - 05/09/2018 2:35 AM PDTNursing Handoff [facility] IP NURSE HANDOFF: Nesbitt hospital course events: [...] of Care / Advance Care NSICU ASSIGNED #[id number] Date: 05/08/18 Advanced Directives: The patient does not have an advance directive in the EMR. A POLST is not indicated in the EMR. Healthcare Agent(s): Surrogate decision maker has been identified and is : Venessa Gerard (Daughter) , patents can be contacted at . The surrogate decision maker has been listed as the e mergency contact within [employer]. Code Status: Current Code Status Date Active Code Status Order ID Comments User Context 05/08/2018 7:07 AM Full Code [id number] Millicent Tony MD Inpatient Code History: Code Status History Date Active Date Inactive Code Status Order ID Comments User Context 12/03/2017 9:59 PM 12/10/2017 2:28 AM Full Code [id number] Tommie Zarco MD Inpatient 10/23/2015 3:47 PM 10/25/2015 6:29 PM Full Code [id number] Antoinette Adkins MD,PhD Inpatient 10/23/2015 6:46 AM 10/23/2015 3:47 PM Full Code [id number] Tommie Bliss Inpatient 06/07/2014 9:11 AM 06/08/2014 6:06 PM Full Code [id number] Angel Mazariegos MD Inpatient 06/07/2014 6:13 AM 06/07/2014 9:11 AM Full Code [id number] Beny Cruz MD Inpatient 05/13/2008 4:34 PM 05/14/2008 7:21 PM Full Code [id number] Alli Junior MD Inpatient 04/11/2008 5:27 PM 04/13/2008 11:04 PM Full Code [id number] Saskia Nguyen RN Inpatient 03/03/2008 1:17 PM 03/08/2008 10:09 PM Full Code [id number] To Prieto MD Inpatient 03/03/2008 1:16 PM 03/03/2008 1:16 PM DNR/DNI [id number] To Prieto MD Inpatient 03/03/2008 12:06 AM 03/03/2008 1:16 PM Full Code [id number] Marlon Mcintyre MD Inpatient 10/30/2007 10:53 PM 11/02/2007 8:59 PM Full Code [id number] Antoinette Saenz, ALEKSANDAR Inpatient 10/18/2007 5:01 AM 10/30/2007 10:53 PM Full Code [id number] Norberto E Mami Inpatient Narrative Summary of [...] PM PDTAssessment & Plan Note - Amaya Nroton ACNP - 05/08/2018 1:26 PM PDTAssociated Problem(s): CAD in coe[place] artery-see isc hemic cardiomyopathy plan above ssessment [...] Radial less than 1 GIOVANNI VINCENT MD [id number] signed by Magnolia Diego MD at 05/16/2018 [...] | [facility] | [address] | [place] [address] | | | SERVICES, CORE | PARK [...] [facility] | [address] | [place] [address] | | | SERVICES, CORE | [address] [...] [facility] | [address] | [place] [address] | | | SERVICES, CORE | PARK [...] | | | LABORATORY | | | ROMANIAN | | | SERVICES, | | | [...] the MDRD equation recommended by the | [facility] | | National Kidney Disease Education Program. [...] | + + + + + | [facility] | [address] | [place] [address] | | | RYAN [place]NELAS | [address] | | | + + + + + PROCEDURE NOTE (05/08/2018 10:26 PM PDT)OPERATION RECORD (05/08/2018 2:53 PM PDT) + + | Procedure Note | + + | Ata White MD - 05/08/2018 2:53 PM PDT Date of Service: 05/08/2018 Attending | | Surgeon:Ata White MD Flood Control Engineer(s):Abel Pratt MD | | Preoperative Diagnosis: Cranioplasty.Postoperative [...] | MDMW/MODLDD: 05/08/2018 14:29:00DT: 05/08/2018 14:53:38Job #: [id number] | |starting to come through the skin, [...] |MW/MODL | | | | | | /[id number] | + + CBC (HEMOGRAM) ONLY (05/08/2018 [...] + + + + + | [facility] | [address] | [place] [address] | | | SERVICES, CORE | [address] | | | + + + + + OPERATION RECORD (05/08/2018 1:14 PM PDT) + + | Procedure Note | + + | Magnolia Diego MD - 05/08/2018 1:14 PM PDT Date of Service: 05/08/2018 Attending | | Surgeon: Magnolia Diego MD Co-Surgeon: Ata White MD. Flood Control Engineer(s): Giovanni | | MD Rakesh. Preoperative Diagnosis: [...] placed | | in a horseshoe head tennis professional, and all pressure points were carefully padded. [...] then affixed them | | to the [place] skull until they sat flush. Due to [...] 05/08/2018 11:22:05DT: 05/08/2018 | | 13:14:51Job #: [id number], Dr. Magnolia Diego certify that I was present for and | | participated in the critical parts of the procedure. I further certify that I was the | | principal surgeon for this procedure.MAGNOLIA DIEGO [facility] [id number] [facility] | | [id number], [place] [id number] | | | |I, Dr. Magnolia Diego certify that I was present for and participated in the critical parts of the procedure. I further certify that I was the principal surgeon for this procedure. | | | | | | | |MAGNOLIA DIEGO MD | |[facility] [address] | |[address] | |[id number] | |[place] [address] | |[phone] | + + CT HEAD WO CONTRAST [...] Note | + + | Service Account, [employer] In Interface - 05/08/2018 1:05 PM [...] | | | LABORATORY | | | ROMANIAN | | | SERVICES, | | | [...] | + + + + + | [facility] | [address] | [place] [address] | | | SERVICES, CORE | [address] [...] (H) | 60 - 99 mg/dL | [facility] - | | | GLUCOSE, | | [...] [facility]NE[facility] | [address] | [place], [place] | | | [facility] [place] | [facility] | [address] | | | TESTS | | | [...] | | POC | | | [facility] | | | | | | OF [...] - ERNESTO | [address] | [place], [place] | | | [facility] | [address] | [address] | | | TESTS | | | [...] | + + + + + | [facility] | [address] | [place] [address] | | | SERVICES, CORE | [address] [...] | | | LABORATORY | | | ROMANIAN | | | SERVICES, | | | [...] + + + + + | [facility] | [address] | [place] [address] | | | SERVICES, CORE | [address] [...] | + + + + + | [facility] | [address] | [place] [address] | | | RYAN [place]ELAS | [address] [...] [facility] | [address] | [place] [address] | | | SERVICES, | [address] [...] + + + + + | [facility] | [address] | [place] [address] | | | SERVICES, | [address] [...] [facility] | [address] | [place], [place] | | | [facility] CARE | [facility] | [address] | | | TESTS | | | [...] | + + | Coronary arteriosclerosis in coe[place]'alene artery Coronary atherosclerosis of coeur [place]'alene | | coronary artery | + + [...]
--- OUTSIDE RECORDS SUMMARY | ~2019-10-16 | XMS | Encounter Summary ---
Demographics + + + | Address | [address] | | | [place] [address] | + + + | Home Phone [...] Team Providers + +------+ + | Care Bath Attendant Name | Role | Phone | [...] [id number] | | | | | | [facility] | | | | | | [address] [place], [place] | | | | | | [address] | | | | | | [phone] | | | +--------+ + + + [...] | | | | | drive from [place]); 08/11/18; | | | | | 120[address] [...] 443; Per order, Per | | ALEKSANDAR Mcintosh [...] perfume, lotions or powder. Remove any nail belgian from at least one fingernail. Do not [...] with Hibiclens. Surgery Check in Locations Admitting [facility] Surgery Check in Time: Someone from your surgeon's office or [facility] will provide you with information regarding [...] it is after office hours, call the [facility] roving machine operator at [phone] and ask them to page your doc tor. documented in this encounter Miscellaneous Notes Telephone Encounter - Florecita Emery RN - 04/25/2018 10:18 AM PSTPhone appointment compl eted as scheduled. Documentation to be found in the Notes and Trans Encounter tab in [employer]. documented in this e ncounter Plan of Treatment Not on filedocumented as of this encounter Visit Diagnoses Not on filedocumented in this encounter"
--- OUTSIDE RECORDS SUMMARY | ~2019-10-16 | XMS | Encounter Summary ---
Demographics + + + | Address | [address] | | | [place] [address] | + + + | Home Phone | | + + + | Preferred Language | Unknown | + + + | Marital Status | | + + + | Yarsanism Affiliation | MET | + + + | Race | White | + + + | Ethnic Group | Not or | + + + Author + + + | Author | [facility] | + + + | Organization | [facility] | + + + | Address [...] Team Providers + +------+ + | Care [facility] [facility] Caretaker Name | Role | Phone | + [...] | | 2019 - | Encounter | [address] | [address] | | | | | [id number] [facility] | [facility] [place] | | | 08/11/ | | [facility], | [address] | | | 2019 | | [place] [address] | [phone] | | | | | [phone] | | | | | | | Ata White MD [address] | | | | | | [address] | | | | | | [place], [place] | | | | | | [address] | | | | | | [phone] | | | | | | | [...] transferred to the rosas for continued ac napaimute care and q4h flap checks. By POD [...] that I, or Nurse Practitioner or Physician Senior Quality Assurance Specialist working with me, had a face to face encounter with this patient on 08/08/2018 On behalf of Attending Physician: Ata White MD I am ordering and certify that the following services are medically necessary [facility] Jail Evaluate and Treat Wound care I certify [...] Otolaryngobecka 10/02/2018 12:00 PM MD NITESH Hansen [facility] Otolaryngolo HOW TO REACH US: Tuesday- Tuesday from 8:00am to 4:30pm, call the Otolaryngology clinic at [phone]. After hours, weekends, and holidays, call the [facility] short filler bunch machine operator at [phone] and as k to have the ENT doctor on-call paged Future Appointments Date Time Provider Department Center 08/17/2018 11:00 AM MD NITESH Hansen Otolaryngobecka 10/02/2018 12:00 PM MD NITESH Hansen [facility] Otolaryngolo Consults obtained: Pertinent imaging: [...] Shelton MD Resident Physician, PGY1 Service Pager: [phone] Valente Valdovinos MD,DD S - 08/10/2018 8:37 AM PDT Head and Neck Surgery Inpatient Daily Progress Note: Primary Care Provider: Mary Vazquez PA-C Admission Date: 08/03/2018 GLORIA ADHIKARI, [id number] Hospital Day #7 PROCEDURES: Dr. Diego 08/03/18 [...] RLB Gram Stain...........: Gram smear performed at [facility]. Culture: Final Report: No growth after 3 days. Final Report 04/29/2008 Corrected CSF Culture Source...............: Cerebrospinal Fluid RLB Gram Stain...........: Gram smear performed at [facility]. Culture: Rare Methicillin resistant Staphylococcus aureus Final ID MRSA Cefazolin R Clindamycin S Erythromycin R Oxacillin R Penicillin R Tetracycline S Trimeth/Sulfa S Vancomycin S Final Report Comment: Test performed at [facility]. 03/07/2008 Corrected CSF Culture Source...............: Cerebrospinal Fluid RLB Gram Stain...........: Gram smear performed at [facility]. Culture: Final Report: No growth after 3 days. Final Report Comment: Test performed at [facility]. 03/03/2008 Corrected CSF Culture Source...............: Cerebrospinal Fluid RLB Gram Stain...........: Gram smear performed at [facility]. Culture: Final Report: No growth after 3 days. Final Report Comment: Test performed at [facility]. 03/03/2008 Corrected Wound Culture Source...............: Skin Abscess RLB Gram Stain...........: Rare Squamous epithelial cells Rare PMN's Rare Gram positive cocci Culture: 1+ Methicillin resistant Staphylococcus aureus Final ID MRSA Cefazolin R Clindamycin S Erythromycin R Oxacillin R Penicillin R Tetracycline S Trimeth/Sulfa S Vancomycin S Final Report Resulted: 03/05/08 RLB ([facility]) [facility] [address] [place] [address] Comment: Test performed at [facility]. CULTURE RESULT Date Value Ref Range [...] Ok for discharge at any time from [facility] perspective. Mel Shelton MD Resident Physician, PGY1 Service Pager: [phone] Osei Garcia MD - 08/09/2018 8:56 AM [...] RLB Gram Stain...........: Gram smear performed at [facility]. Culture: Final Report: No growth after 3 days. Final Report 04/29/2008 Corrected CSF Culture Source...............: Cerebrospinal Fluid RLB Gram Stain...........: Gram smear performed at [facility]. Culture: Rare Methicillin resistant Staphylococcus aureus Final ID MRSA Cefazolin R Clindamycin S Erythromycin R Oxacillin R Penicillin R Tetracycline S Trimeth/Sulfa S Vancomycin S Final Report Comment: Test performed at [facility]. 03/07/2008 Corrected CSF Culture Source...............: Cerebrospinal Fluid RLB Gram Stain...........: Gram smear performed at [facility]. Culture: Final Report: No growth after 3 days. Final Report Comment: Test performed at [facility]. 03/03/2008 Corrected CSF Culture Source...............: Cerebrospinal Fluid RLB Gram Stain...........: Gram smear performed at [facility]. Culture: Final Report: No growth after 3 days. Final Report Comment: Test performed at [facility]. 03/03/2008 Corrected Wound Culture Source...............: Skin Abscess RLB Gram Stain...........: Rare Squamous epithelial cells Rare PMN's Rare Gram positive cocci Culture: 1+ Methicillin resistant Staphylococcus aureus Final ID MRSA Cefazolin R Clindamycin S Erythromycin R Oxacillin R Penicillin R Tetracycline S Trimeth/Sulfa S Vancomycin S Final Report Resulted: 03/05/08 RLB ([facility]) [facility] [place] [address] [place] [address] Comment: Test performed at [facility]. CULTURE RESULT Date Value Ref Range [...] Shelton MD Resident Physician, PGY1 Service Pager: [phone] Associated attestation - Casey Hewitt MD - [...] Vazquez PA-C Admission Date: 08/03/2018 GLORIA ADHIKARI, [id number] Hospital Day #6 PROCEDURES: Dr. Diego 08/03/18 [...] RLB Gram Stain...........: Gram smear performed at [facility]. Culture: Final Report: No growth after 3 days. Final Report 04/29/2008 Corrected CSF Culture Source...............: Cerebrospinal Fluid RLB Gram Stain...........: Gram smear performed at [facility]. Culture: Rare Methicillin resistant Staphylococcus aureus Final ID MRSA Cefazolin R Clindamycin S Erythromycin R Oxacillin R Penicillin R Tetracycline S Trimeth/Sulfa S Vancomycin S Final Report Comment: Test performed at [facility]. 03/07/2008 Corrected CSF Culture Source...............: Cerebrospinal Fluid RLB Gram Stain...........: Gram smear performed at [facility]. Culture: Final Report: No growth after 3 days. Final Report Comment: Test performed at [facility]. 03/03/2008 Corrected CSF Culture Source...............: Cerebrospinal Fluid RLB Gram Stain...........: Gram smear performed at [facility]. Culture: Final Report: No growth after 3 days. Final Report Comment: Test performed at [facility]. 03/03/2008 Corrected Wound Culture Source...............: Skin Abscess RLB Gram Stain...........: Rare Squamous epithelial cells Rare PMN's Rare Gram positive cocci Culture: 1+ Methicillin resistant Staphylococcus aureus Final ID MRSA Cefazolin R Clindamycin S Erythromycin R Oxacillin R Penicillin R Tetracycline S Trimeth/Sulfa S Vancomycin S Final Report Resulted: 03/05/08 RLB ([facility]) [facility] [address] [place] [address] Comment: Test performed at [facility]. CULTURE RESULT Date Value Ref Range [...] cranioplasty exposure. She was admitted to neurosurgery [facility] on 07/10 and underwent explant [...] was made. Ms Adhikari was admitted to [facility] on 08/03 f or right mesh cranioplasty, wound debridement and lat dorsi flap in coordination with Jose Bass and Christopher. PLAN: Wound care per primary team. Encourage mobilization, acute care rehab. OK for DVT prophylaxis from NSG perspective, if felt warranted. Smoking cessation. Neurosurgery to continue to follow. ANSON MULLINS [facility] [address] [address] [place] [address] [id number] signed by ANSON Martinez at 08/08/2018 2:51 PM PDTValente Law i, MD,DDS - 08/08/2018 5:57 AM PDT Head and Neck Surgery Inpatient Daily Progress Note: Primary Care Provider: Mary Vazquez PA-C Admission Date: 08/03/2018 GLORIA MARSHAHARLEY ADHIKARI, [id number] Hospital Day #5 PROCEDURES: Dr. Diego 08/03/18 [...] RLB Gram Stain...........: Gram smear performed at [facility]. Culture: Final Report: No growth after 3 days. Final Report 04/29/2008 Corrected CSF Culture Source...............: Cerebrospinal Fluid RLB Gram Stain...........: Gram smear performed at [facility]. Culture: Rare Methicillin resistant Staphylococcus aureus Final ID MRSA Cefazolin R Clindamycin S Erythromycin R Oxacillin R Penicillin R Tetracycline S Trimeth/Sulfa S Vancomycin S Final Report Comment: Test performed at [facility]. 03/07/2008 Corrected CSF Culture Source...............: Cerebrospinal Fluid RLB Gram Stain...........: Gram smear performed at [facility]. Culture: Final Report: No growth after 3 days. Final Report Comment: Test performed at [facility]. 03/03/2008 Corrected CSF Culture Source...............: Cerebrospinal Fluid RLB Gram Stain...........: Gram smear performed at [facility]. Culture: Final Report: No growth after 3 days. Final Report Comment: Test performed at [facility]. 03/03/2008 Corrected Wound Culture Source...............: Skin Abscess RLB Gram Stain...........: Rare Squamous epithelial cells Rare PMN's Rare Gram positive cocci Culture: 1+ Methicillin resistant Staphylococcus aureus Final ID MRSA Cefazolin R Clindamycin S Erythromycin R Oxacillin R Penicillin R Tetracycline S Trimeth/Sulfa S Vancomycin S Final Report Resulted: 03/05/08 RLB ([facility]) [facility] [address] [place] [address] Comment: Test performed at [facility]. CULTURE RESULT Date Value Ref Range [...] exposure. She was admitted to neurosurgery ser [facility] on 07/10 and underwent explant of her cranioplasty and wound closure by ENT the followin . She was discharged to home on 07/13. Ms Adihkari's surgical culture was notable for g rowth of staph epidermidis. ID recommended no treatment at that time. She was seen in clinic on 07/28 at which time her wound had dehisced after sutures removed in ENT-plastics clinic. A s such, surgical plan for free flap was made. Ms Adhikari was admitted to [facility] on 08/03 for r ight mesh cranioplasty, wound debridement and lat dorsi flap in coordination with Jose Diego and Christopher. PLAN: Wound care per primary team. Encourage mobilization, acute care rehab. OK for DVT prophylaxis from NSG perspective, if felt warranted. Smoking cessation. Neurosurgery to continue to follow. ANSON MULLINS [facility] [address] [address] [place] [address] Valente Valdovinos MD,DDS - 08/07/2018 6:04 AM PDTFormatting of this note might be different from the reba l. Head and Neck Surgery Inpatient Daily Progress Note: Primary Care Provider: Mary Vazquez PA-C Admission Date: 08/03/2018 GLORIA ADHIKARI, [id number] Hospital Day #4 PROCEDURES: Dr. White (ENT) [...] 68 y.o. female HD#2 with CAD s/p OR, HTN, GERD, tobacco use, and a history [...] Shelton MD Resident Physician, PGY1 Service Pager: [phone] Associated attestation - Casey Hewitt MD - [...] Vazquez PA-C Admission Date: 08/03/2018 GLORIA CANTUARD, [id number] Hospital Day #3 PROCEDURES: Dr. White (ENT) [...] Small 1cm punctate area with granulation tissue. [place] on neck with dried crust surrounding- removed [...] until POD5 - Continue LAZARA drain - [place] removed this morning - DC Vanc/ancef prophylaxis - Continue reg diet - Transfuse 1u PRBC today for hx of ACS and HCT 22 - Continue hep gtt with goal of 50-70 Dispo: Continue rosas care Sabiha Johnson Gen Surg R4 First Call ENT resident button tacker Sabiha Wu M D - 08/05/2018 6:37 AM PDT Head and Neck Surgery Inpatient Daily Progress Note: Primary Care Provider: Mary Vazquez PA-C Admission Date: 08/03/2018 GLORIA ADHIKARI, [id number] Hospital Day #2 PROCEDURES: Dr. White (ENT) [...] forehead with dressing in place and strikethrough. [place] on neck with dried crust surrounding. Right [...] Gen Surg R4 First Call ENT resident button tacker Israel Oden ACNP - 08/05/2018 5:41 AM PDT . Neuroscience Intensive Care Unit Team Progress Note NSICU ASSIGNED #[id number] ICU Admission Reason Most Recent Value ICU [...] She was then advised to present to [facility] ED. The patient had denied any fever, [...] Treatment Team Otolaryngology Ipt Critical Care Nsicu #[id number] Treatment Team Ipt Neurosurgery #[id number] Treatment Team Neurological Surgery Patient Lines/Drains/Airways Status Active Lines, Drains and Airways Name: Placement date: Placement time: Site: Days: Drain LAZARA Right Lateral flank 1 08/03/18 1527 flank 1 Drain LAZARA Right Medial flank 2 08/03/18 1527 flank 1 Drain [place] Right head 3 08/03/18 1914 head 1 [...] e. Date of Service: 08/05/2018 KOKO JACKSON [facility] DEPARTMENT: ANE ICU NEURO Place of Service:- Inpatient CSN: [id number] Suggested Modifier: None Suggested CPT: TO PHARMACY OPERATIONS MANAGER Author:KOKO JACKSON [address] [id number] signed by KOKO Jackson at 08/05/2018 10:13 [...] pencil doppler with good Signal over right catholic Incisions: c/d/i, drains with serosanguinous fluid. Soft [...] MD Otolaryngology-Head & Neck Surgery PGY-2 [facility] ENT button tacker pager [phone] ossVickie MD,MPH - 12:24 AM PDT NEUROSURGERY [...] RLB Gram Stain...........: Gram smear performed at [facility]. Culture: Final Report: No growth after 3 [...] 68 y.o. female HD#2 with CAD s/p OR, HTN, GERD, tobacco use, and a history [...] Please contact the Neurosurgery resident on-call pager [phone] with questions or concerns. Vickie Estrada M.D., M.P.H. R2 Resident Physician Neurological Surgery Pager: [phone] signed by Vickie Estrada MD,MPH at 08/05/2018 [...] pencil doppler with good Signal over right catholic Incisions: c/d/i, drains with serosanguinous fluid. Soft [...] MD Otolaryngology-Head & Neck Surgery PGY-2 [facility] ENT button tacker pager [phone] Georgia Pinto MD - 07/22 9:05 AM PDT . Neuroscience Intensive Care Unit Attending Progress Note Attending Pager #[phone] ICU Admission Reason Most Recent Value ICU [...] She was discharged home the following day [facility] he presented on 05/14/2018 [...] She was then advised to present to [facility] ED. The patient had denied any fever, [...] Treatment Team Otolaryngology Ipt Critical Care Nsicu #[id number] Treatment Team Ipt Neurosurgery #[id number] Treatment Team Neurological Surgery Code Status Code Status Full Code The Advanced Care Note for this patient can be found under the notes tab in chart review. Quality section A-Line necessity reviewed: Gayz-wk-pksp blood pressure monitoring Benavides necessity reviewed: Plan [...] rec ent imaging available. Author:GEORGIA ARREOLA MD [address] [id number] signed by Georgia Arreola MD at 08/04/2018 9:09 AM P Angie Rodarte PA-C - 08/04/2018 5:59 AM PDT DOS: 08/04/2018 Head and Neck Surgery Inpatient Daily Progress Note: Primary Care Provider: Mary Vazquez PA-C Admission Date: 08/03/2018 GLORIA ADHIKARI, [id number] Hospital Day #1 PROCEDURES: Dr. White (ENT) [...] now -Doppler switch down on POD 5 -[place] continue -Flap protocol for blood transfusion Hct <21. Hct 31.4 this am -Continue heparin gtt for 5 days, goal 50-70 Dispo: Okay to transfer to floor, if okay by NICU team. Transfer to ENT head and neck servi ce. ANGIE FRENCH PA-C Department of Otolaryngology/Head and Neck Surgery Mail Code PV01 [address] [place] [address] Pager [phone] Consult/Night/Weekend Pager: [phone] Code Status: FULL ANGIE FRENCH PA-C Otolaryngology-Head and Neck Surgery [facility] Pager [phone] Israel Oden AC REHABILITATION THERAPY AIDE - 08/04/2018 5:50 AM PDT . Neuroscience Intensive Care Unit Team Progress Note NSICU ASSIGNED #[id number] ICU Admission Reason Most Recent Value ICU [...] She was discharged home the following day [facility] he presented on 05/14/2018 [...] She was then advised to present to [facility] ED. The patient had denied any fever, [...] Treatment Team Otolaryngology Ipt Critical Care Nsicu #[id number] Treatment Team Ipt Neurosurgery #[id number] Treatment Team Neurological Surgery Patient Lines/Drains/Airways Status [...] ICU NEURO Place of Service:- Inpatient CSN: [id number] Suggested Modifier: None Suggested CPT: TO PHARMACY OPERATIONS MANAGER Author:KOKO JACKSON [address] [id number] signed by KOKO Jackson at 08/04/2018 1:55 [...] RLB Gram Stain...........: Gram smear performed at [facility]. Culture: Final Report: No growth after 3 [...] 68 y.o. female HD#1 with CAD s/p OR, HTN, GERD, tobacco use, and a history [...] Please contact the Neurosurgery resident on-call pager [phone] with questions or concerns. Vickie Estrada M.D., M.P.H. R2 Resident Physician Neurological Surgery Pager: [phone] signed by Casey Hewitt MD at 08/04/2018 [...] Please contact the Neurosurgery resident on-call pager [phone] with questions or concerns. Vickie Estrada M.D., M.P.H. Resident Physician Neurological Surgery Pager: [phone] signed by Vickie Estrada MD,MPH at 08/03/2018 [...] PTT 55-70. Initial surgical contact: ENT resident button tacker Rosario Sanderson MD Resident, Plastic & Reconstructive Surgery [facility] Pager [phone] documented in this en counter H&P Notes [place] kw[place], SEED TESTER - 08/03/2018 10:59 PM PDTFormatting of this note might be different fr om the original. . Neuroscience Intensive Care Unit Team H&P Note NSICU ASSIGNED #[id number] Days in ICU Days in Hospital Documentation [...] She was discharged home the following day [facility] he presented on 05/14/2018 with enlarging [...] She was then advised to present to [facility] ED. 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 Fitness Coach shunt Tympanoplasty Right 1987 Lumpectomy of left breast 1979 Coronary stent placement 12/28/2014 status post stent placement in the mid LAD Removal of vp public relations shunt Cholecystectomy Allergies Allergen Reactions Pershing Tar Hives Betadine [Povidone-Iodine (With Soap)] Rash [...] file Gets together: Not on file Attends uatsdin service: Not on file Active member of [...] Treatment Team Otolaryngology Ipt Critical Care Nsicu #[id number] Treatment Team Ipt Neurosurgery #[id number] Treatment Team Neurological Surgery Patient Lines/Drains/Airways Status Active Lines, Drains and Airways Name: Placement date: Placement time: Site: Days: Drain LAZARA Right Lateral flank 1 08/03/18 1527 flank less than 1 Drain LAZARA Right Medial flank 2 08/03/18 1527 flank less than 1 Drain [place] Right head 3 08/03/18 1914 head less [...] e. Date of Service: 08/03/2018 GRANT Fuentes [address] [id number] signed by GRANT Fuentes at 08/03/2018 11:20 PM Star Ivey MD - 08/03/2018 10:12 PM PDTFormatting of this note might be different f rom the original. . Neuroscience Intensive Care Unit Attending H&P Note Attending Pager #[phone] ICU Admission Reason Most Recent Value ICU [...] She was discharged home the following day [facility] he presented on 05/14/2018 [...] She was then advised to present to [facility] ED. The patient had denied any fever, [...] Neuro checks; at risk for CSF leak, OR, UTI, acute blood loss anemia, DVT -Strict [...] Treatment Team Otolaryngology Ipt Critical Care Nsicu #[id number] Treatment Team Ipt Neurosurgery #[id number] Treatment Team Neurological Surgery Code Status Code Status Full Code The Advanced Care Note for this patient can be found under the notes tab in chart review. Quality section A-Line necessity reviewed: Ogjz-uh-rdgg blood pressure monitoring Benavides necessity reviewed: Plan to DC today I have spent a total of 43 minutes in the direct care and management of this patient indepe ndent of any time spent teaching or performing any separately billable procedures. I reviewe d the documented findings, all data and the recent imaging available. Date of Service: 08/03/2018 Author:STAR VARELA MD [address] [id number] signed by Star Varela MD at 08/03/2018 [...] rotational flap perfor med by Dr Ata Whtie. She represented with wound dehiscence managed with over sewing of the wo und by ENT (05/14-05/17). Unfortunately, Ms Adhikari again presented for medical attention aft er her son noticed recurrent skin opening with cranioplasty exposure. She was admitted to co urosurgery service on 07/10 and underwent explant [...] daily. Facility-Administered Medications: None Allergies Allergen Reactions Pershing Tar Hives Betadine [Povidone-Iodine (With Soap)] Rash Cipro [Ciprofloxacin] Nausea and Vomiting Codeine Hcl Nausea and Vomiting Sulfa (Sulfonamide Antibiotics) Erythema Past Medical History: Diagnosis Date Abnormal LFTs (liver function tests) CAD in [place] artery Chronic pain COPD Essential hypertension GERD [...] need to be redone. MD CHANDRIKA Hansen/NGUYEN /[id number] signed by Ata White MD at 08/14/2018 12:15 PM PDTWax , MD Ata - 08/11/2018 12:07 PM PDTAssociated Order(s): OPERATION RECORDDate of Service: 0 08/03/2018 Attending Surgeon:Ata White MD Senior Quality Assurance Specialist(s):Dr. Garcia Preoperative Diagnosis: Cranioplasty infection. Postoperative Diagnosis: [...] and the [facility] and neck region. The back [...] The vein was measured and a 4.0 vp client services was utilized . We put the 2 [...] till the end of the case. A [employer] Doppler was placed and there was excellent [...] end of the procedure. MD CHANDRIKA Hansen/SWAPNILL /[id number] signed by Ata White MD at 08/11/2018 3:14 PM PDTDog Magnolia vo MD - 08/03/2018 6:27 PM PDTAssociated Order(s): OPERATION RECORDDate of Service: 08/03/2018 Attending Surgeon: MD Magnolia Hansen MD Senior Quality Assurance Specialist(s): MD Abel Clarke MD David J Mazur [...] and loose hardware. She underwent a synthetic stock crane operator nioplasty at that time. Unfortunately, she [...] to the operating room theater on a [facility]. She was given to the anesth [...] and anterior to the bone edges. The [place] 1 was used to dissect the scar tissue and periosteum from the [place] of the bony defect . Tenotomies and [...] the case. MD Magnolia Benz MD DJM/MODPatricia /[id number] I, Dr. Magnolia Diego certify that I was present for and participated in the critical parts of the procedure. I further certify that I was the principal surgeon for this procedure. MAGNOLIA DIEGO MD [facility] [address]C [address]SI [address] [id number] [address] documented in this encou nter Consult Notes [...] Gatch knees to prevent sliding in bed. Caludette Ervin PharmD - 08/05/2018 12:24 PM PDT [...] function declines significantly Please page clinical pharmacist ([phone]) or call central inpatient pharmacy ([phone]) with qu estions. Actual body weight: Weight: [...] pt. Pt discharged to brother's house in [place]. andoff - Sachin Bradley RN - 08/11/2018 [...] RN - 08/10/2018 7:06 PM PDTNursing Handoff [facility] IP NURSE HANDOFF: Nesbitt hospital course events: [...] Possible discharged home on Tuesday andoff - Scahin Bradley RN - 08/10/2018 12:15 AM PDTNursing Handoff [facility] IP NURSE HANDOFF: Nesbitt hospital course events: [...] N - 08/09/2018 3:14 AM PDTNursing Handoff [facility] IP NURSE HANDOFF: Nesbitt hospital course events: [...] RN - 08/08/2018 6:45 PM PDTNursing Handoff [facility] IP NURSE HANDOFF: Nesbitt hospital course events: [...] within reach at all times (08/05/18 1053) [facility] IP NURSE HANDOFF: Nesbitt hospital course events: Per previous handoff "Admit: 08/03 Rt stock crane operator ni and Rt latissimus dorsi free [...] RN - 08/07/2018 1:34 PM PDTNursing Handoff [facility] IP NURSE HANDOFF: Nesbitt hospital course events: [...] PDTNursing Handoff Patient Daily Goal: Sleep (08/05/18 6197) Patient Specific Preferences: family at bedside/TV on/cell phone within reach at all times (08/05/18 1053) [facility] IP NURSE HANDOFF: Nesbitt hospital course events: [...] PDTNursing Handoff Patient Daily Goal: Sleep (08/05/18 0797) Patient Specific Preferences: family at bedside/TV on/cell phone within reach at all times (08/05/18 1053) [facility] IP NURSE HANDOFF: Nesbitt hospital course events: [...] forehead with dressing in place and strikethrough. [place] on neck with dried crust surrounding. Right [...] exercises Outcome: Goal met Physical Therapy Evaluation [id number] GLOR[facility] Day: 3 Date of : 1950 Start [...] Abnormal LFTs (liver function tests) CAD in [place] artery Chronic pain COPD Essential hypertension GERD (gastroesophageal reflux disease) Goiter Hemorrhagic stroke (HCC) 2007 MRSA (methicillin resistant staph aureus) culture positive Otitis media PONV (postoperative nausea and vomiting) Subarachnoid hemorrhage due to ruptured aneurysm (HCC) 2007 Tobacco dependence Past Surgical History: Procedure Laterality Date BLADDER SUSPENSION CHOLECYSTECTOMY CORONARY STENT PLACEMENT 12/28/2014 HYSTERECTOMY LUMPECTOMY OF LEFT BREAST 1978 PARTIAL THYROIDECTOMY Right REMOVAL OF SURGICAL FORCEPS FABRICATOR SHUNT REPAIR OF ANEURYSM BY CLIPPING TYMPANOPLASTY Right 1987 SURGICAL FORCEPS FABRICATOR SHUNT Subjective:Patient agreed to work with PT [...] walker Patient / Family Goal: walk Communication/Barriers: Somali/none Pain: none endorsed Vital Signs: stable pre [...] rehabilitation: assessment and treatme nt (5th ed.). [place]: Ochoa Anderson [facility]. p.254 Mobility & Transfers: Supine to [...] gait speed progressed to independent Outcome Measure: [facility] [...] A Little - Minimal/Contact Guard Assist/Superv ision [facility] Basic Mobility Total Score 21 Interpretation of [facility] [...] PDTNursing Handoff Patient Daily Goal: Sleep (08/05/18 6268) Patient Specific Preferences: family at bedside/TV on/cell phone within reach at all times (08/05/18 1051) [facility] IP NURSE HANDOFF: Nesbitt hospital course events: [...] within reach at all times (08/05/18 1053) [facility] IP NURSE HANDOFF: Nesbitt hospital course events: [...] forehead with dressing in place and strikethrough. [place] on neck with dried crust surrounding. Right [...] RN - 08/04/2018 6:37 PM PDTNursing Handoff [facility] IP NURSE HANDOFF: Nesbitt hospital course events: [...] PM PDTPlan of Care - Mao Correa, TRIM SAWYER - 08/03/2018 11:07 PM PDTFormatting of this [...] Abnormal LFTs (liver function tests) CAD in [place] artery s/p NSTEMI 12/27/2014; status post stent [...] Bladder suspension 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 Fitness Coach shunt Tympanoplasty Right 1987 Lumpectomy of left breast 1978 Coronary stent placement 12/28/2014 status post stent placement in the mid LAD Removal of vp public relations shunt Cholecystectomy Patient Lines/Drains/Airways Status Active Lines, Drains and Airways Name: Placement date: Placement time: Site: Days: Drain LAZARA Right Lateral flank 1 08/03/18 1527 flank less than 1 Drain LAZARA Right Medial flank 2 08/03/18 1527 flank less than 1 Drain [place] Right head 3 08/03/18 1914 head less [...] Additional pain medication information: Functional Epidural: N/A SILK FOLDER: N/A Respiratory: RR: 23 , O2 Sat: 92 % , O2 Delivery: Oxymask Breath Sounds: Ex DARIEN: coarse LLL: RUL: coarse RLL: MELISSA No Comment: Cardiac: BP: 103/59 HR: 104 GI: Nausea/Vomiting Status: No Signs/Symptoms: Interventions: Assessment: Comments: : Last void: benavides in place Contact Name: brothpranay Lr Contact Number: [phone] toi Simental Family contacted: Yes Comment: Belongings:1 [...] 30 degrees Initial surgical contact: NSGY 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 Garcia | | Preoperative Diagnosis: Cranioplasty infection.Postoperative [...] The vein was measured and a 4.0 vp client services was utilized. We put the 2 ends [...] till the end of the case. A [employer] Doppler was placed and there was excellent [...] MELI White/CAROLYNN: 08/11/2018 14:18:44DT: 08/11/2018 14:50:31Job #: [id number] | + + CBC (HEMOGRAM) ONLY (08/10/2018 [...] + + + + + | [facility] | [address] | [place] [address] | | | SERVICES, RYAN | RAMSES [...] | | | LABORATORY | | | DANISH | | | SERVICES, | | | [...] MDRD equation recommended by the National | [facility] | | Kidney Disease Education Program. Estimated [...] | + + + + + | [facility] | [address] | [place] [address] | | | SERVICES, CORE | RAMSES [...] (H) | 60 - 99 mg/dL | [facility] - | | | GLUCOSE, | | [...] [facility] | [address] | [place], [place] | | | RA[facility]L JAY OF CARE | [address] | [address] | | | TESTS | | | [...] + + + + + | [facility] | [address] | [place] [address] | | | SERVICES, CORE | PARK [...] | | | LABORATORY | | | DANISH | | | SERVICES, | | | [...] MDRD equation recommended by the National | [facility] | | Kidney Disease Education Program. Estimated [...] | + + + + + | [facility] | [address] | [place] [address] | | | SERVICES, CORE | RAMSES [...] (H) | 60 - 99 mg/dL | [facility] - | | | GLUCOSE, | | [...] [facility] | [address] | [place], [place] | | | MISTY POINT OF CARE | [address] | [address] | | | TESTS | | | [...] MARQU[facility] | [address] | [place], [place] | | | RA[facility]L JAY OF CARE | [address] | [address] | | | TESTS | | | [...] - ERNESTO | [address] | [place], [place] | | | MISTY [place] OF [facility] | [address] | [address] | | | TESTS | | | [...] [facility] | [address] | [place] [address] | | | SERVICES, CORE | RAMSES [...] | + + + + + | [facility] | [address] | [place] [address] | | | RYAN ORNELAS | RAMSES [...] | | | LABORATORY | | | DANISH | | | SERVICES, | | | [...] + + + + + | [facility] | [address] | [place] [address] | | | SERVICES, CORE | RAMSES [...] + + + + + | [facility] | [address] | [place] [address] | | | SERVICES, RYAN | RAMSES [...] MARQU[facility] | [address] | [place], [place] | | | MISTY POINT OF CARE | [address] | [address] | | | TESTS | | | [...] - 120) sec Heparin levels of | [facility], CORE | | 0.35 - 0.7 U/mL | | + + + + + + + + | Performing | Address | City/State/Zipcode | Phone Number | | Organization | | | | + + + + + | [facility] | [address] | [place] [address] | | | RYAN [place]NELAS | RAMSES [...] - GIRISHAM | [address] | [place], [place] | | | MISTY POINT OF CARE | [address] | [address] | | | TESTS | | | [...] | + + + + + | [facility] | [address] | [place] [address] | | | SERVICES, CORE | RAMSES [...] (H) | 60 - 99 mg/dL | [facility] - | | | GLUCOSE, | | [...] [facility] | [address] | [place], [place] | | | RA[facility] JAY OF CARE | [address] | [address] | | | TESTS | | | [...] + + | [facility] | [address] | [place] [address] | | | SERVICES, CORE | PARK [...] + + + + + | [facility] | [address] | [place] [address] | | | SERVICES, CORE | RAMSES [...] | | | LABORATORY | | | DANISH | | | SERVICES, | | | [...] MDRD equation recommended by the National | [facility] | | Kidney Disease Education Program. Estimated [...] | + + + + + | [facility] | [address] | [place] [address] | | | SERVICES, CORE | RAMSES [...] (H) | 60 - 99 mg/dL | [facility] - | | | GLUCOSE, | | [...] + + + | [facility] | [address] | [place], [place] | | | RA[facility]L [facility] OF [facility] | [address] | [address] | | | TESTS | | | [...] + + + + + | [facility] | [address] | [place] [address] | | | SERVICES, CORE | PARK [...] MARQUAM | [address] | [place], [place] | | | RA[facility]L JAY OF CARE | [address] | [address] | | | TESTS | | | [...] | + + + + + | [facility] | [address] | [place] [address] | | | RYAN ORNELAS | PARK [...] - GIRISHAM | [address] | [place], [place] | | | MISTY POINT OF CARE | [address] | [address] | | | TESTS | | | [...] LABORATORY | [address] | [place] [address] | | | SERVICES, CORE | PARK [...] | + + + + + | [employer] | [address] | [place] [address] | | | SERVICES, | [address] [...] [facility] | [address] | [place] [address] | | | SERVICES, | [address] [...] + + + + | PRODUCT | [id number] | | [facility] | | | UNIT [...] + + + + | EXPIRATION | [id number] | | [facility] | | | DATE [...] + + + + | BLOOD | [id number] | | [facility] | | | PRODUCT [...] | + + + + + | [facility] | [address] | [place] [address] | | | JOHNSON | RAMSES COURTNEY [...] (H) | 60 - 99 mg/dL | [facility] - | | | GLUCOSE, | | [...] [facility] | [address] | [place], [place] | | | RA[facility]L [facility]AY OF [facility] | [facility] | [address] | | | TESTS | | | [...] + + | [facility] | [address] | [place] [address] | | | SERVICES, CORE | PARK [...] [facility] | [address] | [place] [address] | | | SERVICES, CORE | PARK [...] | | | LABORATORY | | | DANISH | | | SERVICES, | | | [...] MDRD equation recommended by the National | [facility] | | Kidney Disease Education Program. Estimated [...] | + + + + + | [facility] | [address] | [place] [address] | | | RYAN ORNELAS | RAMSES [...] ERNESTO | [address] | [place], [place] | | | MISTY POINT OF CARE | [address] | [address] | | | TESTS | | | [...] | + + + + + | [facility] | [address] | [place] [address] | | | SERVICES, CORE | RAMSES [...] (H) | 60 - 99 mg/dL | [facility] - | | | GLUCOSE, | | [...] + + + | [facility]LE [facility] | [address] | [place], [place] | | | RA[facility]L JAY OF [facility] | [address] | [address] | | | TESTS | | | [...] + + + + + | [facility] | [address] | [place] [address] | | | SERVICES, CORE | RAMSES [...] MARQU[facility] | [address] | [place], [place] | | | MISTY POINT OF CARE | [address] | [address] | | | TESTS | | | [...] | + + + + + | [facility] | [address] | [place] [address] | | | SERVICES, CORE | PARK [...] | + + + + + | [facility] | [address] | [place] [address] | | | SERVICES CORE | PARK [...] | | | LABORATORY | | | DANISH | | | SERVICES, | | | [...] | + + + + + | [facility] | [address] | [place] [address] | | | SERVICES, CORE | PARK [...] + + + + + | [facility] | [address] | [place] [address] | | | SERVICES, CORE | RAMSES [...] + + + + + | [facility] | [address] | [place] [address] | | | SERVICES, CORE | RAMSES [...] ERNESTO | [address] | [place], [place] | | | RAÚL JAY OF OLIVIA | [address] | [address] | | | TESTS | | | [...] [facility] | [address] | [place] [address] | | | SERVICES, RYAN | RAMSES [...] ERNESTO | [address] | [place], [place] | | | MISTY POINT OF CARE | [facility] | [address] | | | TESTS | | | [...] | + + + + + | [facility] | [address] | [place] [address] | | | SERVICES, CORE | RAMSES [...] + + + + | PRODUCT | [id number] | | [facility] | | | UNIT [...] + + + + | EXPIRATION | [id number] | | [facility] | | | DATE [...] + + + + | BLOOD | [id number] | | [facility] | | | PRODUCT [...] [facility] | [address] | [place] [address] | | | SERVICES, | [address] [...] + + + + + | [facility] | [address] | [place] [address] | | | SERVICES, CORE | RAMSES [...] MARQUAM | [address] | [place], [place] | | | MISTY POINT OF CARE | [facility] | [address] | | | TESTS | | | [...] | + + + + + | [facility] | [address] | [place] [address] | | | SERVICES, RYAN | PARK [...] - [facility] | [address] | [place], [place] | | | RAÚL JAY OF CARE | [address] | [address] | | | TESTS | | | [...] [facility] | [address] | [place], [place] | | | MISTY POINT OF CARE | [address] | [address] | | | TESTS | | | [...] MARQUAM | [address] | [place], [place] | | | RAÚL JAY OF CARE | [facility] | [address] | | | TESTS | | | [...] GIRISHAM | [address] | [place], [place] | | | RA[facility]L JAY OF [facility] | [address] | [address] | | | TESTS | | | [...] [facility] | [address] | [place] [address] | | | SERVICES, CORE | PARK [...] + + + + + | [facility] | [address] | [place] [address] | | | SERVICES, CORE | RAMSES [...] (H) | 60 - 99 mg/dL | [facility] - | | | GLUCOSE, | | [...] [facility] | [address] | [place], [place] | | | RAÚL JAY OF CARE | [facility] | [address] | | | TESTS | | | [...] ERNESTO | [address] | [place], [place] | | | RA[facility]L JAY OF [place] | [address] | [address] | | | TESTS | | | [...] | + + + + + | [employer] [facility] | [address] | [place] [address] | | | SERVICES, CORE | RAMSES [...] | | | LABORATORY | | | DANISH | | | SERVICES, | | | [...] MDRD equation recommended by the National | [facility] | | Kidney Disease Education Program. Estimated [...] [facility] | [address] | [place] [address] | | | SERVICES, CORE | PARK [...] | + + + + + | [facility] | [address] | [place] [address] | | | SERVICES, CORE | RAMSES [...] (H) | 60 - 99 mg/dL | [facility] - | | | GLUCOSE, | | [...] + + + | [facility] | [address] | [place], [place] | | | MISTY POINT OF CARE | [address] | [address] | | | TESTS | | | [...] [facility] | [address] | [place], [place] | | | MISTY POINT OF CARE | [address] | [address] | | | TESTS | | | [...] | + + + + + | [employer] | [address] | [place] [address] | | | SERVICES, CORE | RAMSES [...] [facility] | [address] | [place], [place] | | | RAÚL JAY OF CARE | [address] | [address] | | | TESTS | | | [...] + + + + + | [facility] | [address] | [place] [address] | | | SERVICES, CORE | RAMSES [...] [facility] | [address] | [place], [place] | | | MISTY POINT OF CARE | [address] | [address] | | | TESTS | | | | + + + + + OPERATION RECORD (08/03/2018 6:27 PM PDT) + + | Procedure Note | + + | Magnolia Diego MD - 08/03/2018 6:27 PM PDT Date of Service: 08/03/2018 Attending | | Surgeon: MD Magnolia Hansen MD Senior Quality Assurance Specialist(s): Rosario Pettit | | MD Abel Sanderson [...] operating room | | theater on a [facility]. She was given to the anesthesia [...] to the bone | | edges. The [place] 1 was used to dissect the scar tissue and periosteum from the inner | | [place] of the bony defect. Tenotomies and blunt [...] | | 08/03/2018 15:19:29DT: 08/03/2018 15:55:39Job #: [id number], Dr. Magnolia Diego | | certify that I was present for and participated in the critical parts of the procedure. | | I further certify that I was the principal surgeon for this procedure.MAGNOLIA DIEGO, | | EZRA Pearson [id number] [facility] [id number], [place] [id number] | |Magnolia Diego MD | |MICHAELM/MODL | | | | | | /[id number] | | | |I, Dr. Magnolia Diego certify that I was present for and participated in the critical parts of the procedure. I further certify that I was the principal surgeon for this procedure. | | | | | | | |MAGNOLIA DIEGO MD | |MICHELLE Pearson NSI | |[address] | |[id number] | |[place] [address] | |[phone] | + + ANTIBODY SCREEN (08/03/2018 10:50 [...] [facility] | [address] | [place] [address] | | | SERVICES, | [address] [...] + + + + + | [facility] | [address] | [place] [address] | | | SERVICES, | [address] [...] [facility] | [address] | [place], [place] | | | MISTY POINT OF CARE | [address] | [address] | | | TESTS | | | [...] | | | | | dose, Starting [facility] 08/03/18 at | | | | [...]
--- OUTSIDE RECORDS SUMMARY | ~2019-10-16 | XMS | Encounter Summary ---
Demographics + + + | Address | [address] | | | [place] [address] | + + + | Home Phone [...] Team Providers + +------+ + | Care Medication Care Manager Name | Role | Phone | [...] | | head | [address] | [place], [place] | | | | | Procedures | [place], [place] | [address] | | | | | REQUEST TO | [address] | Phone: | | | | | SURGERY | Phone: | [phone] | | | | | SPRINKLER INSPECTOR | [phone] | Fax: | | | | | MD REPLACE | Fax: | [phone] | | | | | SKULL | [phone] | | | | | | PLATE/FLAP | | | | | | | MD REPAIR | | | | | | | SKULL | | | | | | | DEFECT,UP TO | | | | | | | 5CM MD | | | | | | | [...] | Other | MD Dora | MD aPramjit | | | | | acquired | [address] | [address] | | | | | deformity of | [address] | Ave | | | | | head | Rd | [place], [place] | | | | | Infection | [place] | [address] | | | | | and | [address] | Phone: | | | | | inflammatory | Phone: | [phone] | | | | | reaction | [phone] | Fax: | | | | | due to other | Fax: | [phone] | | | | | internal | [phone] | | | | | | prosthetic [...] | | | | | | MD REPLACE | | | | | | | SKULL | | | | | | | PLATE/FLAP | | | | | | | MD REPAIR | | | | | | | SKULL | | | | | | | DEFECT,UP TO | | | | | | | 5CM MD | | | | | | | [...] | | cranioplasty | | | | [facility] | | (Primary Dx) | | | | [facility], | | | | | | | | | | | | floor [place], [place] | | | | | | [address] | | | | | | [phone] | | | +--------+---------+ + + + [...] Abnormal LFTs (liver function tests) CAD in [place] artery s/p NSTEMI 12/27/2014; status post stent [...] setting of multiple previous cranioplasties. She, u [facility], demonstrated wound dehiscence after suture removal today. [...]
--- OUTSIDE RECORDS SUMMARY | ~2019-10-16 | XMS | Encounter Summary ---
Demographics + + + | Address | [address] | | | [place] [address] | + + + | Home Phone [...] Providers + +------+ + | Care Certified Wellness Program Coordinator Name | Role | Phone | [...] | | | | | | Rd [facility] | | | | | | Hospital Admitting | | | | | | Desk Located on the | | | | | | 9th floor | | | | | | [place], [place] | | | | | | [address] | | | +--------+ + + + [...]
--- OUTSIDE RECORDS SUMMARY | ~2019-10-16 | XMS | Encounter Summary ---
Demographics + + + | Address | [address] | | | [place] [address] | + + + | Home Phone [...] Team Providers + +------+ + | Care Power Plant Technician Name | Role | Phone | [...] | | Therapy | | Manami, COMPUTER TEACHER | [address] | | | | | Communicatin | [address] | | | | | g | [address] | for Health | | | | | hydrocephalu | [place], [place] | and Healing, | | | | | s (HCC) | [address] | Building 1, | | | | | Procedures | | 1st Floor | | | | | PHYSICAL | | [place], [place] | | | | | THERAPY | | [address] | | | | | REFERRAL | | Phone: | | | | | PAyscal A 4 | | [phone] | | | | | visits only | | Fax: | | | | | | | [phone] | +--------+--------+ + + + + Reason [...] | | | | | | | [id number] | | | | | | | [facility] | | | | | | | [place], | | | | | | | [place] [address] | | | | | | | Phone: | | | | | | | [phone] | | | | | | | Fax: | | | | | | | [phone] | +--------+--------+ + + + + Encounter Details +--------+ + + + + | Date | Type | Department | Care Team | Description | +--------+ + + + + | 03/03/ | Hospital | [facility] [address] | Peter Urbina MD | | | 2008 - | Encounter | [address] | Paramjit Huber MD | | | | | [id number] [facility] | [address] | | | 03/08/ | | Hospital [place], | [place], [place] | | | 2008 | | [place] [address] | [address] | | | | | | [phone] | | | | | | | [...] Treatment, and Complications Brief Hospital Course: Ms. Blel had severe headache and swelling behind left ear, was seen at local Emergency R o, and was referred to [facility] 03/03/08. She has a history of craniotomy [...] She will complete the course of antibiotic shiela tment, and will be seen by Dr. [...] until next appointment. Call: . Ask the barbed wire machine operator to page Neurosurgery resident. If you [...] appointmen t. Follow Up Tests: (Tests at [facility] must be entered into Epic) None at [...] Emergency R o, and was referred to [facility] 03/03/08. She has a history of craniotomy [...] until next appointment. Call: . Ask the barbed wire machine operator to page Neurosurgery resident. If you [...] appointmen t. Follow Up Tests: (Tests at [facility] must be entered into Epic) None at [...] Transportation: Car Accompanied by: Family/Responsible [employer] Name: (when applicable) NA [...] Gram Stai n...........: Gram smear performed at [facility], [...] ulty - 03/08/2008 12:00 AM LAINECielo Bell [id number] [facility] REC NUMBER: [id number] NAME : Cielo Bell DATE : 1950 Admit Date: 03/03/2008 Discharge Date: 03/08/2008 PHYSICIAN'S REQUEST FOR HOME HEALTH SERVICES Relevant History: 03/08/2008 13:11 Home PT/OT arranged through [facility] under their indigent program. Requests for home weatherizing worker and secondary social studies teacher referral also made to assist family in 24 hour care. [place], [phone] Location to receive services if other than home: Home Allergies: Height: Weight: Ordering Physician: Paramjit Huber [address] [place] [address] Physician to follow for ongoing home health orders: PCP to follow for HH PCP Name: Luis Manuel Baker PCP Phone: unavailable Discharge Need(s): Asbestos Abatement Technician: ALEKSANDAR Shoemaker Brian, MD,PhD - 03/07/2008 11:47 [...] available. The patient was positioned appropriately. [facility] members were present during the team pause: Dr. Crabtree, Dr. Landeros, Dr. Chadwick, [facility] Staff Preoperative Diagnosis: Communicating Hydrocephalus Postoperative Diagnosis: [...] Gram Stai n...........: Gram smear performed at [facility], [...] Author: VINAY BOLAÑOS MD Attending Physician: Paramjit uHber MD HPI/Interval Update: No acute event.s Physical [...] Gram Stai n...........: Gram smear performed at [facility]. Culture: Preliminary Report: No growt [...] Gram Stai n...........: Gram smear performed at [facility]. Culture: Preliminary Report: No growt [...] monitors, virtals q 4 hrs, transfer to [facility]. I spent 28 minutes actively involved [...] Physician & Surgeon Department of Neurological Surgery [facility] [place] [address] Pager: [phone] Lisa He MD - 0 03/04/2008 7:00 [...] breakdown No results found for this basename: PH:5,PCO2:5,PO2:5,HCO3:5,EDXSL5TJF:5,Z1XIKVCE:5,Q1DKRZZ RC:5,FIO2:5 in the last 72 hours Chemistries [...] Gram Stain ...........: Gram smear performed at [facility], [...] Resulted : 10/29/07 [facility] ([facility]) [facility] [place] [address] [place] [address] 10/27/07 Respiratory Culture Source...............: Sputum Sputum Culture: [...] card monitor, follow labs (CBC), plan for CHIP DRIER shunt I spent 41 minutes actively involved [...] Physician & Surgeon Department of Neurological Surgery [facility] [address] [facility] [address] [place] [address] Pager: [phone] Vahid Coleman MD - 03/03/2008 8:03 AM [...] breakdown No results found for this basename: PH:5,PCO2:5,PO2:5,HCO3:5,WUIEQ4YFO:5,K0MOJMHI:5,W8TZZXO RC:5,FIO2:5 in the last 72 hours Chemistries [...] Gram Stain ...........: Gram smear performed at [facility], [...] Resulted : 10/29/07 [facility] ([facility] [facility]) [facility] [address] [place] [address] 10/27/07 Respiratory Culture Source...............: Sputum Sputum Culture: [...] Gram Stain ...........: Gram smear performed at [facility], [...] a CT scan done, and referred to [facility] This CT scan was not available with [...] to posadas ve SAH & transferred to [facility]. 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 Dr. Urbina and Dr. [...] craniotomy in [place]. However since about [place] it has been worse. She also started [...] was abnormal. She was tranferred her to [facility]. The patients only complaint is head and [...] 10/19/07 now with hydrocephalus. Will likely need CHIP DRIER shunt. Gi gia current abscess- placement of [...] AM PSTAssociated Order(s): TEACHING PHYSICIAN; TEACHING PHYSICIAN [id number] ONOFRE CASTRO [id number] Date: 03/03/2008 Attending Surgeon: Peter Urbina M.D. Hospital Pharmacy Technician(s): Galileo Landeros M.D. Preoperative Diagnosis(es): Neck abscess. Postoperative Diagnosis(es): Neck abscess. Procedures Performed: Incision and drainage of abscess. This is Dr. Urbina dictating to certify I was present for all critical portions of the case. Please addend this to the operative note by Dr. Landeros. Peter Urbina M.D. / [id number] / [id number] / [id number] / Galileo Bain MD - 2008 12:00 AM PSTAssociated Order(s): OPERATION RECORD; OPERATION RECORD [id number] ONOFRE CASTRO [id number] Date: 03/03/2008 Attending Surgeon: Peter Urbina M.D. Hospital Pharmacy Technician(s): Galileo Landeros M.D. Preoperative Diagnosis(es): Left neck [...] M.D. Peter Urbina M.D. HS / HS [id number] / [id number] / [id number] / documented in this encounte r Miscellaneous [...] the patients abilities. Home care arranged through [facility], unfunded program, [place], , fax, [phone]. Family members have been traine d in home wound care as well. Referral also made for secondary social studies teacher to see and assist family with resources for in-home support. Spoke with CORINE Wagner, regarding yesterdays PT rec that tho ordaz receive caregiver training but family has cared for pt for many months in-home and he is comfortable with current family support. Orders faxed to [facility]. No other anticipate d needs for discharge. [place], [id number] lan of [facility] - Cari Wiley, ALEKSANDAR - 03/07/2008 5:40 [...] cleansed with normal saline and repacked. lan [facility] - Stephania Linares, PT - 03/07/2008 [...] with POC Time: 1340 - 1410 Brandon Villlata, SPT I agree with the assesment and plan as outlined in this note and participated in the plann [place] [id number] lan of Care - Stephania Linares, PT [...] Patient does have hardship funding arranged through [facility], for outpt PT in the past, but [...] dc is appropriate. Will adolphcarmella hoffmanKimberli Robbins, [id number] lan of [place] - Terence Martins - 03/06/2008 11:32 AM PSTProblem: Case Managment Goals Goal: Discharge Needs Met Outcome: Goal not met Patient being followed by PT with recommendation to continue PT, patient also incontinent. Patient unfunded for in-home assist or snf placement. Unsure at this point of families abili ty to assist in the home when discharge is appropriate. [place], [phone] lan of Care - Reedsallykenyetta raoBernard - [...] to provide. Bernard No OTR/L Rehab department [phone] Pager [phone] lan of Care - Vijay Stephania, PT - 03/05/2008 10:25 AM PSTPhysical Therapy Evaluation Diagnosis: hydrocephalus, s/p I&D of left neck abscess, POSADAS and GLF with +LOC, may need VPS PMH: A comm aneurysm clip 09/28, HTN, GERD, COPD, Chronic low back pain, ear infection, part ial thyroidectomy, hysterectomy, cholecystectomy, bladder suspension Activity: ambulate Precautions: fall risk Social/PLOF: Patient lives in [place], [place] with ; has two children who [...] state month and year; initially "I'm in [place]" Quality of responses: slow with responses, requires increased processing time. Command following: fair Pack Press Operator Memory: NT Short Term Memory: NT Judgment [...] paramjit [place] [id number] 1 1:30 AM PSTPlan of Silvia Stone [...] needs: Will follow for transfer/discharge needs. [place], [phone] lan Kingsley Barton rn - 03/03/2008 2:28 [...] + | SENT TO | Held in [facility] | | [facility] | | | | Receiving and | | DEPARTMENT | | | | Processing:Ext [phone] | | OF | | | | [facility] DEPARTMENT OF | [address] | [place] [address] | | | PATHOLOGY | [address] | | | + + + + + | [facility] DEPARTMENT OF | [address] | [place] [address] | | | PATHOLOGY | [address] [...] DEPARTMENT OF | [address] | [place] [address] | | | PATHOLOGY | [address] | | | + + + + + | [facility] DEPARTMENT OF | [address] | [place] [address] | | | PATHOLOGY | [address] [...] [facility] DEPARTMENT OF | [address] | [place] [address] | | | PATHOLOGY | [address] | | | + + + + + | [facility] DEPARTMENT OF | [address] | [place] [address] | | | PATHOLOGY | [address] [...] DEPARTMENT OF | [address] | [place] [address] | | | PATHOLOGY | [address] | | | + + + + + | [facility] DEPARTMENT OF | [address] | [place] [address] | | | PATHOLOGY | [address] [...] [facility] DEPARTMENT OF | [address] | [place] [address] | | | PATHOLOGY | [address] | | | + + + + + | [facility] DEPARTMENT OF | [address] | [place] [address] | | | PATHOLOGY | [address] [...] [facility] DEPARTMENT OF | [address] | [place] [address] | | | PATHOLOGY | [address] | | | + + + + + | [facility] DEPARTMENT OF | [address] | [place] [address] | | | PATHOLOGY | [address] [...] | + + + + + | [facility] | [address] | [place] [address] | | | PATHOLOGY | [address] | | | + + + + + | [facility] | [address] | [place] [address] | | | PATHOLOGY | [address] [...] at | | | | | | [facility]. Culture: | | | | | | Final Report: No | | | | | | growth after 3 days. | | | | | | Final ReportComment: | | | | | | Test performed at [place] | | | | | | [facility] | | | | | | Laboratory. | | | | + + + + + + + + | Specimen | + + | Cerebrospinal fluid | + + + + + + + | Performing | Address | City/State/Zipcode | Phone Number | | Organization | | | | + + + + + | [facility] | [address] | [place] [address] | | | LAB-MICRO | | | [...] DEPARTMENT OF | [address] | [place] [address] | | | PATHOLOGY | [address] | | | + + + + + | [facility] DEPARTMENT OF | [address] | [place] [address] | | | PATHOLOGY | [address] [...] | + + + + + | [facility] | [address] | [place] [address] | | | PATHOLOGY | [address] | | | + + + + + | [facility] | [facility] | [place] [address] | | | PATHOLOGY | [address] [...] | + + + + + | [facility] DEPARTMENT OF | [address] | [place] [address] | | | PATHOLOGY | [address] | | | + + + + + | [facility] DEPARTMENT OF | [address] | [place] [address] | | | PATHOLOGY | [address] | | | + + + + + MAGNESIUM, PLASMA (03/05/2008 12:30 AM PST) + +-------+ + + + | Component | Value | Ref Range | Performed | Pathologist | | | | | At | Signature | + +-------+ + + + | MAGNESIUM,P | 2.0 | 1.8 - 2.5 mg/dL | [facility] | | | LASMA | [...] [facility] DEPARTMENT OF | [address] | [place] [address] | | | PATHOLOGY | [address] | | | + + + + + | [facility] | [address] | [place] [address] | | | PATHOLOGY | [address] [...] DEPARTMENT OF | [address] | [place] [address] | | | PATHOLOGY | [address] | | | + + + + + | [facility] DEPARTMENT | [address] | [place] [address] | | | PATHOLOGY | [address] [...] | + + + + + | [facility] | [address] | [place] [address] | | | PATHOLOGY | [address] | | | + + + + + | [facility] | [address] | [place] [address] | | | PATHOLOGY | [address] [...] [facility] DEPARTMENT OF | [address] | [place] [address] | | | PATHOLOGY | [address] | | | + + + + + | [facility] DEPARTMENT OF | [address] | [place] [address] | | | PATHOLOGY | [address] | | | + + + + + MAGNESIUM, PLASMA (03/05/2008 12:30 AM PST) + + + + + + | Component | Value | Ref Range | Performed | Pathologist | | | | | At | Signature | + + + + + + | MAGNESIUM,P | Combined. | 1.8 - 2.5 mg/dL | [facility] | | | LASMA | [...] [facility] DEPARTMENT OF | [facility] | [place] [address] | | | PATHOLOGY | [address] | | | + + + + + | [facility] DEPARTMENT OF | [address] | [place] [address] | | | PATHOLOGY | [address] [...] [facility] DEPARTMENT OF | [address] | [place] [address] | | | PATHOLOGY | [address] | | | + + + + + | [facility] DEPARTMENT OF | [address] | [place] [address] | | | PATHOLOGY | [address] [...] [facility] DEPARTMENT OF | [address] | [place] [address] | | | PATHOLOGY | [address] | | | + + + + + | [facility] DEPARTMENT OF | [address] | [place] [address] | | | PATHOLOGY | [address] [...] [facility] DEPARTMENT OF | [address] | [place] [address] | | | PATHOLOGY | [address] | | | + + + + + | [facility] DEPARTMENT OF | [address] | [place] [address] | | | PATHOLOGY | [address] [...] [facility] DEPARTMENT OF | [address] | [place] [address] | | | PATHOLOGY | [address] | | | + + + + + | [facility] DEPARTMENT OF | [address] | [place] [address] | | | PATHOLOGY | [address] [...] + | SENT TO | Held in [facility] | | [facility] | | | | Receiving and | | DEPARTMENT | | | | Processing:Ext [phone] | | OF | | | | [...] [facility] DEPARTMENT | [address] | [place] [address] | | | PATHOLOGY | [address] | | | + + + + + | [facility] DEPARTMENT OF | [address] | [place] [address] | | | PATHOLOGY | [address] [...] [facility] DEPARTMENT OF | [address] | [place] [address] | | | PATHOLOGY | [address] | | | + + + + + | [facility] DEPARTMENT OF | [address] | [place] [address] | | | PATHOLOGY | [address] | | | + + + + + PROTEIN, CSF (03/03/2008 1:56 PM PST) + +-------+ + + + | Component | Value | Ref Range | Performed | Pathologist | | | | | At | Signature | + +-------+ + + + | TOTAL | 26 | 15 - 45 mg/dL | [facility] | | | PROTEIN CSF [...] [facility] DEPARTMENT | [address] | [place] [address] | | | PATHOLOGY | [address] | | | + + + + + | [facility] DEPARTMENT OF | [address] | [place] [address] | | | PATHOLOGY | [address] [...] + | [facility] DEPARTMENT OF | [address] | [place] [address] | | | PATHOLOGY | [address] | | | + + + + + | [facility] DEPARTMENT OF | [address] | [place] [address] | | | PATHOLOGY | [address] [...] DEPARTMENT OF | [address] | [place] [address] | | | PATHOLOGY | [address] | | | + + + + + | [facility] DEPARTMENT OF | [address] | [place] [address] | | | PATHOLOGY | [address] [...] DEPARTMENT OF | [address] | [place] [address] | | | PATHOLOGY | [address] | | | + + + + + | [facility] DEPARTMENT OF | [address] | [place] [address] | | | PATHOLOGY | [address] [...] [facility] DEPARTMENT OF | [address] | [place] [address] | | | PATHOLOGY | [address] | | | + + + + + | [facility] DEPARTMENT OF | [address] | [place] [address] | | | PATHOLOGY | [address] [...] at | | | | | | [facility]. Culture: | | | | | | Final Report: No | | | | | | growth after 3 days. | | | | | | Final ReportComment: | | | | | | Test performed at [place] | | | | | | [facility] | | | | | | Laboratory. | | | | + + + + + + + + | Specimen | + + | Cerebrospinal fluid | + + + + + + + | Performing | Address | City/State/Zipcode | Phone Number | | Organization | | | | + + + + + | [facility] | [address] | [place] [address] | | | LAB-MICRO | | | [...] + | [place] DEPARTMENT OF | [address] | [place] [address] | | | PATHOLOGY | [address] | | | + + + + + | [facility] DEPARTMENT OF | [address] | [place] [address] | | | PATHOLOGY | [address] [...] [facility] DEPARTMENT OF | [address] | [place] [address] | | | PATHOLOGY | [address] | | | + + + + + | [facility] DEPARTMENT OF | [address] | [place] [address] | | | PATHOLOGY | [address] [...] | + + + + + | [facility] | [address] | [place] [address] | | | PATHOLOGY | [address] | | | + + + + + | [facility] | [address] [place] [address] | [place] [address] | | | PATHOLOGY | [address] [...] Lab) | | | | | | [place] | | | | | | [facility] | | | | | | [address] | | | | | | [place], | | | | | | [place] [address]Nkivvhp: | | | | | | Test performed at [place] | | | | | | [facility] | | | | | | Laboratory. | | | | + + + + + + + + | Specimen | + + | Abscess - Skin | + + + + + + + | Performing | Address | City/State/Zipcode | Phone Number | | Organization | | | | + + + + + | [facility] | [address] | [place] [address] | | | LAB-MICRO | | | [...] | + + + + + | [facility] | [facility] [address] | [place] [address] | | | PATHOLOGY | [address] | | | + + + + + | [facility] | [facility] [address] [address] | [place] [address] | | | PATHOLOGY | [address] [...] | + + + + + | [facility] | [address] | [place] [address] | | | PATHOLOGY | [address] | | | + + + + + | [facility] | [address] | [place] [address] | | | PATHOLOGY | [address] [...] [facility] DEPARTMENT OF | [address] | [place] [address] | | | PATHOLOGY | [address] | | | + + + + + | [facility] DEPARTMENT OF | [address] | [place] [address] | | | PATHOLOGY | [address] [...] | + + + + + | [facility] | [address] | [place] [address] | | | PATHOLOGY | [address] | | | + + + + + | [facility] | [address] | [place] [address] | | | PATHOLOGY | [address] [...] | | | | | | [facility] ([facility]) | | | | | | [place] | | | | | | [facility] | | | | | | [address] | | | | | | [place], | | | | | | [place] [address]Erbeotl: | | | | | | Test performed at [place] | | | | | | [facility] | | | | | | Laboratory. | | | | + + + + + + + + | Specimen | + + | | + + + + + + + | Performing | Address | City/State/Zipcode | Phone Number | | Organization | | | | + + + + + | [facility] | [address] | [place] [address] | | | LAB-MICRO | | | [...] | + + + + + | [facility] | [address] | [place] [address] | | | PATHOLOGY | [address] | | | + + + + + | [facility] | [facility] [address] | [place] [address] | | | PATHOLOGY | [address] [...] | + + + + + | [facility] | [address] | [place] [address] | | | PATHOLOGY | [address] | | | + + + + + | [facility] | [address] [place] [address] [address] | [place] [address] | | | PATHOLOGY | [address] [...] | | + +---------+ + + | [facility] DEPARTMENT OF | | | [...] | + + + + + | [facility] | [address] | [place] [address] | | | PATHOLOGY | [address] | | | + + + + + | [facility] | [address] | [place] [address] | | | PATHOLOGY | [address] | | | + + + + + INR (03/03/2008 12:06 AM PST) + + + + + + | Component | Value | Ref Range | Performed | Pathologist | | | | | At | Signature | + + + + + + | INR | 1.05Comment: | 0.90 - 1.20 INR | [facility] | | | | INR Therapeutic ranges [...] [facility] DEPARTMENT OF | [address] | [place] [address] | | | PATHOLOGY | [address] | | | + + + + + | [facility] DEPARTMENT OF | [address] | [place] [address] | | | PATHOLOGY | [address] [...] | + + + + + | [facility] | [address] | [place] [address] | | | PATHOLOGY | [address] | | | + + + + + | [facility] | [address] | [place] [address] | | | PATHOLOGY | [address] [...] DEPARTMENT OF | [address] | [place] [address] | | | PATHOLOGY | [address] | | | + + + + + | [facility] DEPARTMENT OF | [address] | [place] [address] | | | PATHOLOGY | [address] [...] | + + + + + | [facility] | [address] | [place] [address] | | | PATHOLOGY | [address] | | | + + + + + | [facility] | [address] [place] [address] | [place] [address] | | | PATHOLOGY | [address] | | | + + + + + TEACHING PHYSICIAN (03/03/2008 12:00 AM PST) + + + | Narrative | Performed At | + + + | [id number] | | | [id number] | | | [place] [id number] | | | Date: 03/03/2008 Attending Surgeon: | | | Peter Urbina M.D. Hospital Pharmacy Technician(s): | | | Galileo Landeros M.D. Preoperative [...] M.D. KL / HS | | | [id number] / [id number] / [id number] / | | | | | + + + + + | Procedure Note | + + | Peter Urbina MD - 03/03/2008 12:00 AM PST [id number] | | [id number] [place] | | [id number] Date: 03/03/2008 Attending Surgeon: Peter | | Narinder Urbina Hospital Pharmacy Technician(s): Galileo Landeros M.D. Preoperative | | Diagnosis(es):Neck abscess. Postoperative Diagnosis(es):Neck abscess. Procedures | | Performed:Incision and drainage of abscess. This is Dr. Urbina dictating to certify I was | | present for all criticalportions of the case. Please addend this to the operative note | | by . Peter Urbina M.D. LEIGHANN / [id number] / [id number] / [id number] / T: | | 03/04/2008 | | | | | | | |Hospital Pharmacy Technician(s): Galileo Landeros M.D. | | | | [...] | | | |KL / HS | |[id number] / [id number] / [id number] / | | | | | | | | | | | | | | | | | | | | | + + OPERATION RECORD (03/03/2008 12:00 AM PST) + + + | Narrative | Performed At | + + + | [id number] | | | [id number] | | | [place] [id number] Date: | | | 03/03/2008 Attending Surgeon: | | | Peter Urbina M.D. Hospital Pharmacy Technician(s): | | | Galileo Landeros M.D. Preoperative [...] Urbina, | | | Narinder / ELINA [id number] / [id number] / [id number] / T: | | | 03/03/2008 | | + + + + + | Procedure Note | + + | Galileo Landeros MD - 03/03/2008 12:00 AM PST [id number] | | [id number] [place] | | [id number] Date: 03/03/2008 Attending Surgeon: Peter | | Narinder Urbina Hospital Pharmacy Technician(s): Galileo Landeros M.D. Preoperative | | Diagnosis(es):Left [...] | | Narinder Kay M.D. HS / [id number] / [id number] / [id number] / T: | | 03/03/2008 | | [...] | | | |HS / HS | |[id number] / [id number] / [id number] / | | | | | | [...] DEPARTMENT OF | [address] | [place], [place] [address] | | | PATHOLOGY | [address] | | | + + + + + | [facility] | [address] | [place] [address] | | | PATHOLOGY | [address] [...] 10:45 | | | | | Starting [facility] 03/07/08 at 1035, | | AM [...]
--- OUTSIDE RECORDS SUMMARY | ~2019-10-16 | XMS | Encounter Summary ---
Demographics + + + | Address | [address] | | | [place] [address] | + + + | Home Phone | | + + + | Preferred Language | Unknown | + + + | Marital Status | | + + + | Shinto Affiliation | MET | + + + [...] Team Providers + +------+ + | Care Spiral Runner Name | Role | Phone | + [...] [address] | | | | | [address] | [place], | | | | | [place], | [place] [address] | | | | | [place] [address] | [phone] | | | | | [phone] | | | +--------+ + + + [...]
--- OUTSIDE RECORDS SUMMARY | ~2019-10-16 | XMS | Encounter Summary ---
Demographics + + + | Address | [address] | | | [place] [address] | + + + | Home Phone [...] Team Providers + +------+ + | Care Fruit Cutter Name | Role | Phone | [...] [address] | | | | | [place], | [place] | | | | | [place] [address] | [phone] | | | | | [phone] | | | +--------+ + + + [...] - 07/30/2016 9:21 AM PDT----- Message from Chaan Luu MD sent at 07/29/2016 17:34 PDT [...] [address] | [place] | [phone] | | [facility] | | [address] | | | - LABORATORY | | [...] HDL | 28 - 83 mg/dL | [place] | | | | Reference Range as [...] [address] | [place] | [phone] | | [facility] | | [address] | | | - LABORATORY | | | | + + + + + documented in this encounter Visit Diagnoses + + | Diagnosis | + + | Coronary artery disease involving [place] coronary artery of [place] heart without | | angina pectoris - Primary | + + | PVD (peripheral vascular disease) (HCC) Peripheral vascular disease, unspecified | + + documented in this encounter"
--- OUTSIDE RECORDS SUMMARY | ~2019-10-16 | XMS | Encounter Summary ---
Demographics + + + | Address | [address] | | | [place] [address] | + + + | Home Phone [...] Team Providers + +------+ + | Care Electrical Laboratory Technician Name | Role | Phone | [...] [address] | | | | | [address] | [place], | | | | | [place], | [place] [address] | | | | | [place] [address] | [phone] | | | | | [phone] | | | +--------+ + + + [...]
--- OUTSIDE RECORDS SUMMARY | ~2019-10-16 | XMS | Encounter Summary ---
Demographics + + + | Address | [address] | | | [place] [address] | + + + | Home Phone | | + + + | Preferred Language | Unknown | + + + | Marital Status | | + + + | Church Affiliation | Unknown | + + + | Race | White | + + + | Ethnic Group | Not or | + + + Author + + + | Author | [facility] | | | and [place] | + + + | Organization | [facility] | | [...] Team Providers + +------+ + | Care Package Delivery Room Service Runner Name | Role | Phone | [...] + | 01/28/ | Telephone | [facility] | Chana Luu, | Noe | | 2014 | | CARDIOLOGY [address] | MD [address] | | | | | [place], | [place] | | | | | [place] [address] | [address] | | | | | [phone] | | | +--------+ + + + [...] Berry - 01/28/2015 4:11 PM PSTElvert from [facility] called and yasmin ayala to get Clearance for patient to have hardware removal surgery. I Discussed this with ALEKSANDAR Adkins and she stated that patient needs to be seen by Dr.Abraham ni for [facility] before patient can be cleared Relayed message to [facility] and he verbalized understanding documented in this encounter Plan of Treatment Not on filedocumented as of this encounter Visit Diagnoses Not on filedocumented in this encounter"
--- OUTSIDE RECORDS SUMMARY | ~2019-10-16 | XMS | Encounter Summary ---
Demographics + + + | Address | [address] | | | [place] [address] | + + + | Home Phone [...] Providers + +------+ + | Care Production Proofreader Name | Role | Phone | + [...] | | | | | | [place] [address] | 2nd floor | | | | | | Phone: | [place], [place] | | | | | | [phone] | [address] | | | | | | Fax: | Phone: | | | | | | [phone] | [phone] | | | | | | | Fax: | | | | | | | [phone] | +--------+--------+ + + + + Encounter [...] | | | Surgery Services at | [address] | glands (Primary Dx) | | | | [address] | [place], [place] | | | | | [address] | [address] | | | | | Physician's | [phone] | | | | | [place], [facility] floor | | | | | | [place], [place] | | | | | | [address] | | | | | | [phone] | | | +--------+---------+ + + + [...] Bladder suspension 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 Corporate Learning Consultant shunt Right tympanoplasty (2-3 decades ago [...] Supple, intact ROM; no thyroid masses palpable. 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
--- OUTSIDE RECORDS SUMMARY | ~2019-10-16 | XMS | Encounter Summary ---
Demographics + + + | Address | [address] | | | [place] [address] | + + + | Home Phone [...] Providers + +------+ + | Care Kitchen Utility Associate Name | Role | Phone | [...] [place] | | | | | [facility] | [address] | | | | | Hospital Admitting | [facility] [place] | | | | | Desk Located on the | [address] | | | | | 9th floor | [phone] | | | | | [facility] [place] | | | | | | [address] | Bill Sanchez MD | | | | | | [address] | | | | | | [place], | | | | | | [place] [address] | | | | | | [phone] | | | | | | | [...] be different from the original. Cielo Bell [id number] Vitals Value Taken Time BP 162/64 07/11/2018 [...] - 07/11/2018 10:38 AM PDTSheryl Marsha Bell [id number] NPO: 0001 Last Vitals Temp: 36.2 C [...] STEMI s/p BMS (denies symptoms since last [place] ~2 years prior, took metoprolol t his [...] % -- Lexiscan Cardiolite stress test (07/27/16-[facility]): Severe LV enlargement, marked scarring (co mprising approximately 60% of the entire LV) of the entire anterior, anteroseptal, mid and d istal inferior, inferoseptal, inferolateral and anterolateral segments with no evidence of i schemia, EF 16% -- Echo (12/28/14-[facility]): EF 54%, apical hypokinesis, grade 1 diastolic dysfunction, mild AI -- Cardiac Cath / PCI (12/28/14 - [facility]): LVEDP 35, LM-normal, mid LAD- occluded > [...] D 12/2015) medically managed cardiac stents past [place] Last [place]: > 1 year valvular problems /murmurs AR [...]
--- OUTSIDE RECORDS SUMMARY | ~2019-10-16 | XMS | Encounter Summary ---
Demographics + + + | Address | [address] | | | [place] [address] | + + + | Home Phone [...] Team Providers + +------+ + | Care Pain Management Physician Name | Role | Phone | [...] | | Surgery Services at | [facility], | about the plastic | | | | [facility] [address] | [place] [address] | film coming off the | | | | [facility] for | [phone] | head wound please | | | | Health and Healing, | | call him) | | | | [address] | | | | | | [place], [place] | | | | | | [address] | | | | | | [phone] | | | +--------+ + + + [...] 10/17/2018 10:13 AM PDT From: Augusto Bell <[email or web address]> Sent: Tuesday, October 16, 2018, 8:59 AM To: [email or web address] Subject: Cielo Nurard The top pic [...]
--- OUTSIDE RECORDS SUMMARY | ~2019-10-16 | XMS | Encounter Summary ---
Demographics + + + | Address | [address] | | | [place] [address] | + + + | Home Phone [...] Team Providers + +------+ + | Care Jerker Name | Role | Phone | + [...] | hemorrhage) (HCC); | | | | [facility] | | Essential | | | | [address] [place], [place] | | hypertension; | | | | [address] | | Chronic obstructive | | | | [phone] | | pulmonary disease, | | | [...] | Cathet | prior to arrival to [facility]); 1000 | | | | er | [...] or walk. Surgery check-in location: Admitting - [facility], ninth floor lobby Surgery Check in Time: [...] office hours, call the [facility] stretcher leveler operator helper at [phone] and ask them to page him or h er. documented in this encounter Progress Notes Isamar Callahan MA - 10/06/2015 9:58 AM PDT Telephone contact made with patient. Relayed positive nasal culture result. Informed patien t of the need to excelsior picker Rx at her pharmacy, refer to education materials given at clinic vi sit, and start the checklist given at clinic visit on the day of this call OR 5 days prior t o the day of surgery. able Jerry MD - 10/03/2015 4:59 PM PDT Quick Note: 10/03/2015 Nasal culture screening during [facility] visit is positive for MSSA. [facility] MA 1) Call the patient to inform of positive nasal culture and review instructions given duri ng the visit regarding the use of Bactroban 2) Instruct the patient to excelsior picker prescription for Bactroban at the pharmacy listed in EP IC. 3) Per [facility] protocol, activate order for Bactroban (Mupirocin 2% [...] Allergies reviewed / updated Allergies Allergen Reactions Sorrento Tar Hives Betadine [Povidone-Iodine (With Soap)] Unknown Cipro [Ciprofloxacin] Nausea and Vomiting Codeine Hcl Nausea and Vomiting Sulfa (Sulfonamide Antibiotics) Erythema Past medical history reviewed / updated Past Medical History Diagnosis Date GERD (gastroesophageal reflux disease) Essential hypertension Tobacco dependence COPD on oxygen at night Otitis media recent abx preadmit Chronic pain CVA (cerebral vascular accident) ([facility]) 2007 Subarachnoid hemorrhage due to ruptured aneurysm ([facility]) 2007 Benign neoplasm of major salivary glands Goiter CAD in [place] artery s/p NSTEMI 12/27/2014; status post stent placement in the mid LAD Abnormal LFTs (liver function tests) MRSA (methicillin resistant staph aureus) culture positive post cariotomy for SAH Past surgery reviewed and updated Past Surgical History Procedure Date Partial thyroidectomy Hysterectomy Cholecystecomy Bladder suspension 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 Church Official shunt Tympanoplasty 1987 Lumpectomy of left breast [...] Alert and appropriate; nl affect. alert Findings: Sports Nutritionist nial nerves 2-12 intact, Motor 5/5 strength [...] to this patient's care. Mable Lee MD [facility] 4TH FLOOR DAY STAY [address] [place] [address] I spent time counseling the [...] + +--------+ + + | COMMUNICATION TO [facility] | Procedures | Routin | Preoperative | [...] DEPT OF | [address] | [place], [place] | | | CARDIOLOGY | [address] | [address] | | + + + + + [...] | + + + + + | [facility] | [address] | [place] [address] | | | SERVICES, SPECIAL | [address] [...] | + + + + + | [facility] | [address] | [place] [address] | | | SERVICES, CORE | [address] [...]
--- OUTSIDE RECORDS SUMMARY | ~2019-10-16 | XMS | Encounter Summary ---
Demographics + + + | Address | [address] | | | [place] [address] | + + + | Home Phone [...] Team Providers + +------+ + | Care Honing Machine Set Up Operator Name | Role | Phone | + +------+ + | Mary Vazquez PA-C | PCP | | + +------+ + Encounter Details +--------+ + + + + | Date | Type | Department | Care Team | Description | +--------+ + + + + | 07/09/ | Telephone | Neurosurgery at | Doug Aponte, | | | 2019 | | [address] | [address] | | | | | [place] for | [facility] | | | | | Health and Healing, | [place], [place] | | | | | [facility] | [address] | | | | | floor [place], [place] | [phone] | | | | | [address] | | | | | | [phone] | | | +--------+ + + + [...] this encounter Miscellaneous Notes Telephone Encounter - Doug Aponte MD - 07/09/2018 11:51 AM PDTSon calls in saying Ms. Bell felt a skin defect and has an exposed cranioplasty. Denies fevers/chills/drainage. A dvised to present to [facility] for further evaluation given the substantial risk of infection. In agreement and will present to ED today. Doug Aponte MD Neurosurgery PGY2 [id number] signed by Doug Aponte MD at 07/09/2018 11:55 AM PDTdocumented in th is encounter Plan of Treatment Not on filedocumented as of this encounter Visit Diagnoses Not on filedocumented in this encounter"
--- OUTSIDE RECORDS SUMMARY | ~2019-10-16 | XMS | Encounter Summary ---
Demographics + + + | Address | [address] | | | [place] [address] | + + + | Home Phone [...] + + | Author | [facility] | | | and [place] | + + + | Organization | [facility] | | [...] Providers + +------+ + | Care Test Deck Supervisor Name | Role | Phone | [...] | | [address] | [place], | | | | | [place], [place] | [place] [address] | | | | | [address] | [phone] | | | | | [phone] | | | +--------+ + + + [...] | | TAPSE: 1.64 cm AR Dec Rusk: 1.90 m/s2 AR Dec Time: | | [...] TR Vmax: 1.93 m/s | | | Sheet Metal Roofer: Authenticated by: LOUIE HAMMOND MD Report | [...] cmLVPWd: 0.96 cmLVOT | | Area: 3.33 [id number] Diam: 2.06 cm%FS: 25.75 %EF(Teich): 50.53 %ESV(Teich): [...] | | (A-L): 22.79 ml/m2LAAs A2C: 13.62 nb8QVINX A-L A2C: 34.11 mlLALs A2C: 4.62 | | cmLAAs A4C: 12.46 sg1QMPFY A-L A4C: 30.24 mlLALs A4C: 4.36 cmRAAs: 9.31 rl0SPLYC | | A-L: 19.38 mlRAESV MOD: 19.43 mlRALs: 3.79 cmTAPSE: 1.64 cmAR Dec Rusk: 1.90 | | m/s2AR Dec Time: 1601.02 msAR maxP.34 mmHgAR PHT: 464.29 msAR Vmax: 3.05 | | m/Andrea maxP.56 mmHgAV meanP.98 mmHgAV Vmax: 1.77 m/Andrea Vmean: 1.13 m/Andrea | | VTI: 29.05 cmAVA Vmax: 2.24 cm2AVA (VTI): 2.12 zn4DNTE Vmax: 0.00 cm2/m2AVAI | | (VTI): 0.00 cm2/m2LVOT maxP.69 mmHgLVOT meanP.05 mmHgLVSI Dopp: 42.59 | | ml/m2LVSV Dopp: 61.75 mlLVOT Vmax: 1.19 m/sLVOT Vmean: 0.81 m/sLVOT VTI: 18.51 | | cmMV A Ozzy: 1.05 m/sMV DecT: 248.72 msMV E Ozzy: 0.67 m/sMV E/A Ratio: 0.63MV | | PHT: 72.12 msMVA By PHT: 3.05 an7Ltvwyl e': 0.04 m/sSeptal E/e': 16.34Lateral | | e': 0.02 m/sLateral E/e': 31.86TR maxP.04 mmHgTR Vmax: 1.93 m/s | | Sheet Metal Roofer:Authenticated by: Ash WALKER Date/Time: 05-09-2017 17:2:54 | [...] | |TAPSE: 1.64 cm | |AR Dec Rusk: 1.90 m/s2 | |AR Dec Time: 1601.02 [...] |TR Vmax: 1.93 m/s | | | |Sheet Metal Roofer: | |Authenticated by: LOUIE HAMMOND MD | [...]
--- OUTSIDE RECORDS SUMMARY | ~2019-10-16 | XMS | Encounter Summary ---
Demographics + + + | Address | [address] | | | [place] [address] | + + + | Home Phone [...] Team Providers + +------+ + | Care Park Activities Coordinator Name | Role | Phone | [...] defect (Primary Dx) | | | | [facility] | | | | | | Health and Healing, | | | | | | Building | | | | | | floor [place], [place] | | | | | | [address] | | | | | | [phone] | | | +--------+---------+ + + + [...] shortly before that appointment she suffered an CA and was placed on asp irin and [...] DO Skull Base Fellow Department of Neurosurgery [facility] documented in this enc ounter Plan of Treatment Not on filedocumented as of this encounter Visit Diagnoses + + | Diagnosis | + + | 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
--- OUTSIDE RECORDS SUMMARY | ~2019-10-16 | XMS | Encounter Summary ---
Demographics + + + | Address | [address] | | | [place] [address] | + + + | Home Phone [...] Team Providers + +------+ + | Care Recovery Unit Operator Name | Role | Phone [...] | | | IMAGING [address] | | | | | [address] | [place] [address] | | | | | [place] [address] | | | | | | [phone] | | | +--------+ + + + [...]
--- OUTSIDE RECORDS SUMMARY | ~2019-10-16 | XMS | Encounter Summary ---
Demographics + + + | Address | [address] | | | [place] [address] | + + + | Home Phone [...] Team Providers + +------+ + | Care Pastry Baker Name | Role | Phone | + [...] | | | | of external | [place], [place] | [place], [place] | | | | | operation | [address] | [address] | | | | | (surgical) | Phone: | Phone: | | | | | wound, not | [phone] | [phone] | | | | | elsewhere | Fax: | Fax: | | | | | classified, | [phone] | [phone] | | | | | initial | | | | | | | encounter | | | | | | | Procedures | | | | | | | REQUEST TO | | | | | | | SURGERY | | | | | | | LIQUID LOADER | | | | | | | OK SPLIT | | | | | | | GRFT,HEAD,FA | | | | | | | C,HAND,FEET | | | | | | | <100CM OK | | | | | | | FULL THICK | | | | | | | GRFT | | | | | | | SCALP,ARM,LE | | | | | | | G <20SQC OK | | | | | | | FULL THICK | | | | | | | GRFT | | | | | | | SCALP,ARM | | | | | | | ADD 20SQCM | | | | | | | OK WND PREP | | | | | [...] | | | Surgery Services at | [facility], | | | | | [facility] [address] | [place] [address] | | | | | [facility] for | [phone] | | | | | Health and Healing, | | | | | | [place] [address] | | | | | | [place], [place] | | | | | | [address] | | | | | | [phone] | | | +--------+---------+ + + + [...] dressing in there. We took off the [facility] er, and I think that she will [...] 15 minutes with her. MD CHANDRIKA Hansen/NGUYEN /[id number] signed by Ata White MD at 10/05/2018 5:51 PM PDTWax Ata MD - 10/04/2018 10:30 AM PDTDictation #1 [id number] signed by Ata White MD at 10/04/2018 5:57 PM PDTdocumented in this en counter Plan of Treatment Not on filedocumented as of this encounter Visit Diagnoses + + | Diagnosis | + + | Skull defect - Primary Unspecified acquired deformity of head | + + documented in this encounter"
--- OUTSIDE RECORDS SUMMARY | ~2019-10-16 | XMS | Encounter Summary ---
Demographics + + + | Address | [address] | | | [place] [address] | + + + | Home Phone [...] Team Providers + +------+ + | Care Paper Ruler Name | Role | Phone | + [...] | | | | | [facility] | [address] | | | | | Hospital Admitting | [place], [place] | | | | | Desk Located on the | [address] | | | | | 9th floor | [phone] | | | | | [facility] [place] | | | | | | [address] | Josse Reddy MD | | | | | | [address] | | | | | | Nora Funes [facility] | | | | | | [place] [address] | | | | | | [phone] | | | | | | | [...] | | | | | drive from [place]); 08/11/18; | | | | | 1206 [...] be different from the original. Cielo Bell [id number] Allergies Allergen Reactions [place] Tar Hives Betadine [Povidone-Iodine (With Soap)] Rash Cipro [Ciprofloxacin] Nausea and Vomiting Codeine Hcl Nausea and Vomiting Sulfa (Sulfonamide Antibiotics) Erythema Past Surgical History Procedure Laterality Date Partial thyroidectomy Right Hysterectomy Bladder suspension 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 Medical Officer shunt Tympanoplasty Right 1987 Lumpectomy of left breast 1978 Coronary stent placement 12/28/2014 status post stent placement in the mid LAD Removal of vp project shunt Cholecystectomy Temp: 35.9 C (96.6 F) [...] di fferent from the original. Cielo Bell [id number] Allergies Allergen Reactions [place] Tar Hives Betadine [Povidone-Iodine (With Soap)] Rash [...] gland Goiter Skull defect Coronary arteriosclerosis in [place] artery Acute fbm-OP-jkzgccpvm myocardial infarction (HCC) Continuous tobacco abuse Hyperglycemia Draining postoperative wound Encounter for long-term (current) use of antibiotics Osteomyelitis (HCC) Acute osteomyelitis of cranium (HCC) Tobacco dependence Past Surgical History Procedure Laterality Date Partial thyroidectomy Right Hysterectomy Bladder suspension 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 Medical Officer shunt Tympanoplasty Right 1987 Lumpectomy of left breast 1979 Coronary stent placement 12/28/2014 status post stent placement in the mid LAD Removal of vp project shunt Cholecystectomy Current Medication List Name Sig [...] Date RATE 94 12/04/2017 ATRIALRATE 93 12/04/2017 SC 155 12/04/2017 QRS 100 12/04/2017 QT 352 [...] infarction. NSR. Summary: -- Echo (03/02/17 - [facility]): TDS, EF 35-40%, apical 1/3 is aneurysmal, with akinesis in focal a reas of dyskinesis. Grade 1 diastolic dysfunction. Normal RV size and function. Mild AI -- Cardiac Cath (09/15/16): Left ventricular end-diastolic pressure 25. LM-normal. Proximal- mid LAD with patent stents, 40% ISR, FFR 0.85. LCx-normal, OM2-20%. RCA proximal-20%, mid-30 % -- Lexiscan Cardiolite stress test (07/27/16-[facility]): Severe LV enlargement, marked scarring (co mprising approximately 60% of the entire LV) of the entire anterior, anteroseptal, mid and d istal inferior, inferoseptal, inferolateral and anterolateral segments with no evidence of i schemia, EF 16% -- Echo (12/28/14-[facility]): EF 54%, apical hypokinesis, grade 1 diastolic dysfunction, mild AI -- Cardiac Cath / PCI (12/28/14 - [facility]): LVEDP 35, LM-normal, mid [...] LAD 12/2015) medically managed cardiac stents past NV Last NV: > 1 year valvular pr oblems/murmurs AR [...] Within Defined Limits except as noted below Urology/Lastex Thread Winder: Within Defined Limits except as noted below [...] Zero Most recent H&P reviewed, located under [email or web address] encounter tab, Pre-Operative Medicine Clinic v isit [...]
--- OUTSIDE RECORDS SUMMARY | ~2019-10-16 | XMS | Encounter Summary ---
Demographics + + + | Address | [address] | | | [place] [address] | + + + | Home Phone [...] Team Providers + +------+ + | Care Strip Winder Name | Role | Phone | [...] Contrast Allergy | | 2017 | | [place] [address] | | Clarification | | | | [address] | | | | | | [place], [place] | | | | | | [address] | | | | | | [phone] | | | +--------+ + + + [...]
--- OUTSIDE RECORDS SUMMARY | ~2019-10-16 | XMS | Encounter Summary ---
Demographics + + + | Address | [address] | | | [place] [address] | + + + | Home Phone [...] Team Providers + +------+ + | Care Rental Agent Name | Role | Phone | [...] | | | Stay [address] | [facility] [place] | | | | | [address] | [address] | | | | | Mailcode: [id number] | | | | | | [facility] | | | | | | [address] [place], [place] | | | | | | [address] | | | | | | [phone] | | | +--------+ + + + [...]
--- OUTSIDE RECORDS SUMMARY | ~2019-10-16 | XMS | Encounter Summary ---
Demographics + + + | Address | [address] | | | [place] [address] | + + + | Home Phone | | + + + | Preferred Language | Unknown | + + + | Marital Status | | + + + | Synagogue Affiliation | Unknown | + + + [...] Team Providers + +------+ + | Care Grief Counsellor Name | Role | Phone | + [...] + | 01/10/ | Telephone | [facility] | Chana Luu, | Noe (Procedure | | 2014 | | CARDIOLOGY [address] | MD [address] | Inquiry ) | | | | [place], | [place], [place] | | | | | [place] [address] | [address] | | | | | [phone] | | | +--------+ + + + [...] who is a patient of theirs at [facility]. Marsha says that Cielo has "hardware migrat [...] encounter. She may also be reached at [phone]. Nataliya Schuster RN 01/10/2015 14:47 documented in thi s encounter Plan of Treatment Not on filedocumented as of this encounter Visit Diagnoses Not on filedocumented in this encounter
--- OUTSIDE RECORDS SUMMARY | ~2019-10-16 | XMS | Encounter Summary ---
Demographics + + + | Address | [address] | | | [place] [address] | + + + | Home Phone [...] Team Providers + +------+ + | Care Sequencing Machine Operator Name | Role | Phone [...] | | | | | [facility] | [address] | | | | | Health and Healing, | [place], [place] | | | | | [facility] | [address] | | | | | Floor [place], [place] | | | | | | [address] | | | | | | [phone] | | | +--------+ + + + [...]
--- OUTSIDE RECORDS SUMMARY | ~2019-10-16 | XMS | Encounter Summary ---
Demographics + + + | Address | [address] | | | [place] [address] | + + + | Home Phone [...] Providers + +------+ + | Care Machine Tool Electrician Name | Role | Phone | [...] | | | [facility] for | [place], [place] | | | | | Health and Healing, | [address] | | | | | [facility] | [phone] | | | | | floor [place], [place] | | | | | | [address] | | | | | | [phone] | | | +--------+ + + + [...] t to Dr. 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
--- OUTSIDE RECORDS SUMMARY | ~2019-10-16 | XMS | Encounter Summary ---
Demographics + + + | Address | [address] | | | [place] [address] | + + + | Home Phone [...] Team Providers + +------+ + | Care Engineering Document Control Clerk Name | Role | Phone [...] | | | | [address] | [address] | | | | | Mailcode: [id number] | | | | | | [facility] | | | | | | [address] [place], [place] | | | | | | [address] | | | | | | [phone] | | | +--------+ + + + [...]
--- OUTSIDE RECORDS SUMMARY | ~2019-10-16 | XMS | Encounter Summary ---
Demographics + + + | Address | [address] | | | [place] [address] | + + + | Home Phone [...] Team Providers + +------+ + | Care Bookkeepers Supervisor Name | Role | Phone | [...]
--- OUTSIDE RECORDS SUMMARY | ~2019-10-16 | XMS | Encounter Summary ---
Demographics + + + | Address | [address] | | | [place] [address] | + + + | Home Phone [...] Providers + +------+ + | Care Manager Regional Sales Name | Role | Phone | + [...] | | | | Hospital Admitting | [place], [place] | | | | | Desk Located on the | [address] | | | | | 9th floor | [phone] | | | | | [place], [place] | | | | | | [address] | | | +--------+---------+ + + + [...] Physician: MD KASHIF ESPOSITO MD Otolaryngology, PGY1 [id number] signed by Beny Cruz MD at 06/10/2014 [...] to maintain suction. Thank you for choosing [facility] for your care and for staying with us on 5B Day Stay Unit. It h as been a pleasure caring for you! Discharge Nurse: ALMITA JIMMY Date: 06/08/2014 Discharge Time: 10:31 AM AttachmentsThe following attachments cannot be sent through Care Everywhere.COPD: CLEARING LUNGS : GENERAL INFO (SERBIAN)SURGICAL DRAIN CARE (SERBIAN)documented in this encounter Progress Notes Kashif Sunshine [...] Otolaryngology Head and Neck Surgery, PGY-1 Pager [phone] documented in this en counter H&P Notes [...] PDTAssociated Order(s): PROCEDURE NOTEOPERATIVE NOTE Cielo Bell [id number] Date of Surgery: 06/07/2014 Attending Surgeon: Beny Cruz MD Head Host/Hostess(s): SEBASTIAN MICHELLE MD and Angel Mazariegos MD [...] reached approximately the level of the bony rubber thread spooler y canal. At this point of dissection, [...] the patient was then turned over to [facility] for reversal of anesthesia. After the [...] d iscontinued. Patient received and understands all [facility] discharge teaching literature and EPI [...] evaluation can be referred to the RT Instructor Nurse by paging [phone] Comments: Pt. Does not qualify for home oxygen.Electronically signed by Dougie Bright RCP at 06/08 11:51 AM Yeyo - Almita Marquez RN - 06/08/2014 11:32 AM PDTPrimary focus o f stay: Right superficial parotidectomy with nerve preservation 06/07 Pertinent history/background: Smoking, brain aneurysm and Manager Of Compensation shunt placement, MRSA, COPD, HTN, CVA Comprehensive [...] with discussion with MD and RT DC account planner. Gave pt education at discharge for : COPD: Clearing Lungs. Pt denied pain and any interventions this shift My recommendations forward: Care is complete and pt has been discharged. Patient Stability:Moderately Stable andoff - Linda Hankins RN - 06/08/2014 4:55 AM PDTPrimary focus of stay: Right superficial parotidectomy with nerve preservation 06/07 Pertinent history/background: Smoking, brain aneurysm and Manager Of Compensation shunt placement, MRSA, COPD, HTN, CVA Comprehensive assessment: Pain assessment: Pt states her pain is #4/10 but does not want pain meds. Pt states h er discomfort is manageable. Spiritual, psych/social findings: Very pleasant woman. Family involved in care. Radha alejandre 02/2013. Medical findings: VSS, A&O X4, OOB to commode, steady on feet, R LAZARA drain, minimal chao inage output. 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 4L of O2 & trying to [...] Prior medical history: Smoking, brain aneurysm and Manager Of Compensation shunt placement, MRSA, COPD, HTN, CV A [...] Additional pain medication information: Functional Epidural: N/A DRAIN LAYER: N/A Respiratory: RR: 14, O2 Sat: 96 %, O2 Delivery: Oxymask Breath Sounds: WDL Except DARIEN: LLL: RUL: RLL: MELISSA No Comment: Cardiac: BP: 113/56 mmHg HR: 76 GI: Nausea/Vomiting Status: Yes- Zofran given. Pt states it's better now. Signs/Symptoms: Interventions: Assessment: Comments: : Last void: Around 0730 this am. Will bladder scan soon. Contact Name: Linda disla Contact Number: [phone] Family contacted: No Comment: Belongings: documented in [...] greatest | | | | | | dimension.Blindmaker | | | | | | sections are submitted. | | | | | | Cassette | | | | | | Index:A1, uninvolved | | | | | | parotid parenchymaA2, | | | | | | cyst wall nearest | | | | | | parotid parenchymal | | | | | | marginA3-6, | | | | | | sales representative uniforms sections | | | | | | [...] | + + + + + | [facility] | [address] | [place] [address] | | | PATHOLOGY | [address] [...]
--- OUTSIDE RECORDS SUMMARY | ~2019-10-16 | XMS | Encounter Summary ---
Demographics + + + | Address | [address] | | | [place] [address] | + + + | Home Phone [...] Team Providers + +------+ + | Care Cardroom Worker Name | Role | Phone | [...] [id number] | | | | | | [facility] | | | | | | [address] [place], [place] | | | | | | [address] | | | | | | [phone] | | | +--------+ + + + [...] | | | | | drive from [employer]); 08/11/18; | | | | | 1206 [...] perfume, lotions or powder. Remove any nail bermudian from at least one fingernail. Do not [...] with Hibiclens. Surgery Check in Locations Admitting [facility] Surgery Check in Time: Someone from your surgeon's office or [place] [facility] will provide you with information regarding your [...] it is after office hours, call the [facility] heavy equipment operator at [phone] and ask them to page your doc tor. documented in this encounter Miscellaneous Notes Telephone Encounter - Florecita Emery RN - 04/25/2018 10:18 AM PSTPhone appointment compl eted as scheduled. Documentation to be found in the Notes and Trans Encounter tab in [employer]. documented in this e ncounter Plan of Treatment Not on filedocumented as of this encounter Visit Diagnoses Not on filedocumented in this encounter"
--- OUTSIDE RECORDS SUMMARY | ~2019-10-16 | XMS | Encounter Summary ---
Demographics + + + | Address | [address] | | | [place] [address] | + + + | Home Phone [...] Team Providers + +------+ + | Care Shaper Set Up Operator Name | Role [...] | atherosclerosis due | | | | [place], | [place], [place] | to lipid rich plaque | | | | [place] [address] | [address] | (Primary Dx); | | | | [phone] | | Fatigue, unspecified | | | [...] y.o. female with a history of Anterior IN and stent implan tation. She is being [...] She has not followed up with the [facility] neurosurgery and has no pending apt's. The [...] management plan. Rickie Lane MD NEUROSURGERY AT [facility] [address] Mailcode: [id number] [phone] Clinic says she is a patient of [...] due to bronchospasm CAD (coronary artery disease), little traverse coronary artery CURRENT MEDICATIONS No current outpatient prescriptions on file. She quit all of her medications No current facility-administered medications for this visit. she does take duo neb occasionally ALLERGIES Allergies Allergen Reactions Ciprofloxacin Nausea And Vomiting Codeine Nausea And Vomiting [place] Tar Hives Povidone Iodine Hives Sulfa Antibiotics [...] RESULTS reviewed during visit today primarily from [facility]: LIPID Lab Results Component Value Date CHOL [...] PLT 250 06/17/2015 I reviewed records from [facility] for Neurosurgery . ASSESSMENT: S/P STEMI 12/28/2014 [...] spoke to a couple of people at [facility]. No contraindication to the proposed surgery - she is at some increased risk due to h/o IN a nd her quitting her medications She is currently asymptomatic from a cardiac standpoint and does not require further testin g at this time - of note this is a minor surgery Follow up with me in 6 months Electronically signed by: Chana Luu MD [facility] 09/18/2015 Portions of this chart may have been created with [employer]max voice recognition software. Occasi onal wrong-word or [...]
--- OUTSIDE RECORDS SUMMARY | ~2019-10-16 | XMS | Encounter Summary ---
Demographics + + + | Address | [address] | | | [place] [address] | + + + | Home Phone [...] Providers + +------+ + | Care Engineering Analyst Name | Role | Phone | [...] and Neck | JORGE LUIS Donald [address] [facility] | cranioplasty | | | | Surgery Services at | [address] | (Primary Dx) | | | | [facility] [address] | [place], [place] | | | | | [facility] for | [address] | | | | | Health and Healing, | [phone] | | | | | [place] [address] | | | | | | [place], [place] | | | | | | [address] | | | | | | [phone] | | | +--------+---------+ + + + [...] pain and no drainage. Allergies Allergen Reactions [place] Tar Hives Betadine [Povidone-Iodine (With Soap)] Rash [...]
--- OUTSIDE RECORDS SUMMARY | ~2019-10-16 | XMS | Encounter Summary ---
Demographics + + + | Address | [address] | | | [place] [address] | + + + | Home Phone [...] Team Providers + +------+ + | Care Plc Controls Engineer Name | Role | Phone | [...] | | | | | Rd [facility] | | | | | | Hospital Admitting | | | | | | Desk Located on the | | | | | | 9th floor | | | | | | [place], [place] | | | | | | [address] | | | +--------+ + + + [...]
--- OUTSIDE RECORDS SUMMARY | ~2019-10-16 | XMS | Encounter Summary ---
Demographics + + + | Address | [address] | | | [place] [address] | + + + | Home Phone [...] Providers + +------+ + | Care Nursing Assistant Name | Role | Phone | [...] [place] | | | | | [facility] [place] for | [facility] | | | | | Health and Healing, | [place], [place] | | | | | [facility] | [address] | | | | | floor [place], [place] | [phone] | | | | | [address] | | | | | | [phone] | | | +--------+ + + + [...] Denies fevers/chills/drainage. A dvised to present to [facility] ED for further evaluation given the substantial risk of infection. In agreement and will present to ED today. Doug Aponte MD Neurosurgery PGY2 [id number] signed by Doug Aponte MD at 07/09/2018 11:55 AM PDTdocumented in th is encounter Plan of Treatment Not on filedocumented as of this encounter Visit Diagnoses Not on filedocumented in this encounter"
--- OUTSIDE RECORDS SUMMARY | ~2019-10-16 | XMS | Encounter Summary ---
Demographics + + + | Address | [address] | | | [place] [address] | + + + | Home Phone [...] Providers + +------+ + | Care Traffic Inspector Name | Role | Phone | + +------+ + | Mary Vazquez PA-C | PCP | | + +------+ + Encounter Details +--------+ + + + + | Date | Type | Department | Care Team | Description | +--------+ + + + + | 01/17/ | Procedure | Diagnostic Imaging | | | | 2017 | Pass | Services at [facility] | | | | | | [address] | | | | | | Nora Funes [facility] | | | | | | [facility], [address] [place] [address] | | | | | | [place], [place] | | | | | | [address] | | | | | | [phone] | | | +--------+ + + + [...]
--- OUTSIDE RECORDS SUMMARY | ~2019-10-16 | XMS | Encounter Summary ---
Demographics + + + | Address | [address] | | | [place] [address] | + + + | Home Phone [...] Team Providers + +------+ + | Care Epidemiologist Name | Role | Phone | + [...] | | | | | | Building [place], | | | | | | [place] [address] | | | | | | [phone] | | | +--------+--------+ + + + [...]
--- OUTSIDE RECORDS SUMMARY | ~2019-10-16 | XMS | Encounter Summary ---
Demographics + + + | Address | [address] | | | [place] [address] | + + + | Home Phone [...] Team Providers + +------+ + | Care Nitroglycerin Separator Operator Name | Role | Phone | [...] | [address] | [address] | | | | | Procedures | [place] | [place], | | | | | [place] [facility] | [place], [place] | [place] | | | | | Stress Test | [address] | [address] | | | | | (Vasodilator | Phone: | Phone: | | | | | ) CHG | [phone] | [phone] | | | | | MYOCARDIAL | Fax: | Fax: | | | | | SPECT | [phone] | [phone] | | | | | MULTIPLE | | | | | | | STUDIES [place] | | | | | | | CV STRS TST | | | | | | | XERS&/OR RX | | | | | | | CONT ECG W/O | | | | | | | I&R AK | | | | | | | [...] | [address] | [address] | | | | | Procedures | [place] | [place], | | | | | [place] [facility] | [place] | [place] | | | | | Stress Test | [address] | [address] | | | | | (Vasodilator | Phone: | Phone: | | | | | ) CHG | [phone] | [phone] | | | | | MYOCARDIAL | Fax: | Fax: | | | | | SPECT | [phone] | [phone] | | | | | MULTIPLE | | | | | | | STUDIES [place] | | | | | | | CV STRS TST | | | | | | | XERS&/OR RX | | | | | | | CONT ECG W/O | | | | | | | I&R AK | | | | | | | [...] + + | 08/06/ | Hospital | [facility] | Chana Luu, | Precordial pain | | 2017 | Encounter | MED CTR NUCLEAR | MD [address] | | | | | MEDICINE [address] | [place] | | | | | [place], | [address] | | | | | [place] [address] | | | | | | [phone] | Summer InternTriston | | +--------+ + + + + [...] by: | | | Lynsey Subramanian MD [facility] 08/06/2016, 12:18 | | + + + + + ----+ | Narrative | Performed At | + + ----+ | | [facility] | | NUCLEAR MEDICINE STRESS TEST REPORT Patient Name: Cielo Larson | [facility] | | Ray Study Date: 08/06/2016 Primary Care Provider: Lance Boyle [facility] | | Mumtaz : 1950 Age: [...] mmHg. EKG baseline underlying sinus rhythm, anteroseptal HI, | | | age indeterminant. Peak unchanged. [...] [address] | [place] | [phone] | | [facility] | | [address] | | | - IMAGING | | [...]
[~2019-10-16 19:45] MED LIST changes: +MULTIVITAMINS1 EAC7 PO; +ZOFRAN4 MG PO
--- NOTE | 2019-10-17 01:00 | NUR ---
REPORT RECIEVED FROM FIELD TRAINING MANAGER
--- NOTE | 2019-10-17 01:54 | NUR ---
PT ARRIVED VIA STRETCHER WITH STOCK LETTERER. ON TECHNICAL BUYER AND 9 L OM ON TRANSPORT. UPON ARRIVAL, PT ALERT AND ORIENTED. ASSESSMENT COMPLETED. PT LUNGS SOUND COARSE THROUGHOUT WITH SOME RHONCHI NOTED IN BOTH LOWER AIR LAUREN. NG TUBE DRAINING LIGHT PINK TINGED CONTENTS. PT DENIES PAIN OR NAUSEA AT THIS TIME. BLOOD PRESSURES IN THE 90'S SYSTOLICALLY. DISCUSSED PLAN OF CARE FOR EVENING. ALL QUESTIONS ANSWERED. IV FLUIDS INFUSING. PT DENIES FURTHER NEEDS AT THIS TIME. CALL LIGHT WITHIN REACH. WILL CLOSELY MONITOR BLOOD PRESSURES, PAIN LEVEL, AND URINE OUTPUT.
--- NOTE | 2019-10-17 03:00 | NUR ---
PT RESTING WITH EYES CLOSED. OXYGEN TURNED DOWN TO 6 L OM AT THIS TIME. PT SATURATING IN THE MID 90'S. REPOSITIONED IN THE BED. DENIES PAIN OR NAUSEA. NO FURTHER NEEDS.
--- NOTE | 2019-10-17 04:00 | NUR ---
IN ROOM FOR ASSESSMENT. PT OXYGEN TURNED BACK UP TO 8 L OM FOR SATURATIONS AT 87 PERCENT. PT DENIES PAIN. LUNGS DIM AND COARSE THROUGHOUT. REPOSITIONED IN STRETCHER. NO FURTHER NEEDS AT THIS TIME.
--- NOTE | 2019-10-17 05:56 | NUR ---
PT HAD A LARGE LIQUID INCONTINENT STOOL IN BED. COMPLETE BED CHANGE. PARTIAL BED BATH PERFORMED. COATES CARE COMPLETED. PT UP TO BEDSIDE COMMODE. SHORTNESS OF BREATH NOTED WITH EXERTION. BACK IN BED ON 8 L OM. SPO2= 92 PERCENT. CALL LIGHT WITHIN REACH. DENIES PAIN OR DISCOMFORT. WILL CONTINUE TO MONITOR.
--- NOTE | 2019-10-17 06:15 | NUR ---
DR FORD CALLED AND UPDATED ON PT STATUS. PT OXYGEN SATURATIONS AT 91 PERC[address] ON [address] FORD INFORMED OF PATIENTS POOR URINE OUTPUT AND BLOOD PRESSURE. NO NEW ORDERS AT THIS TIME.
--- NOTE | 2019-10-17 06:38 | CONS ---
[facility] [address] [place], [place] [address] Signed DATE OF CONSULTATION: 10/16/2019 CHIEF COMPLAINT: Generalized abdominal pain. HISTORY OF PRESENT ILLNESS: Cielo is a 69-year-old female, apparently I know from a previous colonoscopy. She has been a long-time smoker and has COPD and is supposed to wear oxygen at night. Unfortunately, she still smokes. She has coronary and peripheral arterial disease. She was having trouble with the UTI for about the last 3 weeks. Apparently, she has been on antibiotics. However, she has had generalized abdominal pain and nausea and vomiting as well. She lives in a duplex next to her son. Her son had found her on the floor with decreased level of consciousness. He had called the ambulance and brought to the emergency room. She was hypotensive and with some IV fluids, that has improved. White count was borderline around 12.9 with neutrophils 85. Lactic acid was good at 1.3. Troponin and other labs were fine. The urine showed bacteria, so she received initial dose of cefepime. Chest x-ray was unremarkable. The CT scan of her brain showed no acute findings. Therefore, she had a CT scan of abdomen and pelvis and sure enough her entire stomach, all the small bowel was full of fluid with some air-fluid levels. The terminal ileum is decompressed. We know she has had a previous hysterectomy and she has a transition point down high in the pelvis. Consequently, I was asked to see her in the ER for small-bowel obstruction. In the meantime, the hospitalist service had been seeing her for concerns of sepsis. We initially thought she was going to need a central line, but she has responded to quite nicely to 3 L of fluid. I am sure she is going to need more than that at this time. I have just spent over 20 minutes with Cielo and her son, Allan, and she has done quite well through that time. PAST MEDICAL HISTORY: Urinary tract infection, COPD requiring 3 L of oxygen per nasal cannula at night, brain aneurysm, asthma, and VA. PAST SURGICAL HISTORY: Includes a hysterectomy and bladder sling, laparoscopic cholecystectomy, COMBINED RAIL OPERATOR shunt, coiled aneurysm, parotidectomy, carotid stents x2, cranioplasty. She has had both her great toenails removed and she has had skin grafting. SOCIAL HISTORY: She still continues to smoke. She does not drink. She is now a , but lives in her duplex next to her son. She drives. She has 2 children. Her son is Augusto at [phone] and her daughter is Linda at [phone]. Mary Vazquez is a primary care provider. She prefers the [facility]. FAMILY HISTORY: Electronically Signed By: CONNIE FORD MD 10/17/19 0638 PATIENT NAME: CIELO ADHIKARI CONSULTATION DATE OF : 48 REPORT #: [id number] PHYSICIAN: CONNIE FORD MD PCP: MARY VAZQUEZ PA-C REPORT IS CONFIDENTIAL AND NOT TO BE RELEASED WITHOUT AUTHORIZATION [address] [address] Signed She had nothing new to add in that other than say there is some cancer in the family. REVIEW OF SYSTEMS: She had 10 systems reviewed with the help of her son and those were added above. ALLERGIES: Sulfa, codeine, Cipro, iodine, and thiopental. MEDICATIONS: 1. Metoprolol ER 50 mg p.o. daily. 2. Atorvastatin 80 mg p.o. at bedtime. 3. Multivitamin one tablet p.o. daily. PHYSICAL EXAMINATION: VITAL SIGNS: Blood pressure is 105/56, heart rate 88, respiratory rate 23, temperature is 97.7. She is 97% on room air. She is 4 feet 11 inches at 47 kg (104 pounds). GENERAL: Cielo is a 69-year-old female, who is lying supine in the ER bed. Her son is at the bedside. She is alert, awake, and interactive. LUNGS: Generally clear to auscultation bilaterally. HEART: Regular rate and rhythm without murmur. ABDOMEN: Shows [id number] distention. It is moderately firm and dull to percussion, but there are no peritoneal signs or symptoms. Not really any tenderness at all. LABORATORY DATA: Her white blood count 12.9, hemoglobin 13.9, neutrophils 85. Her BUN is 12, creatinine 0.9. Her lactic acid is 1.3. Liver function tests are negative. Troponin is negative. Albumin is 3.3. Blood cultures are pending. Her urine culture is pending. Her urinalysis showed nitrites with trace blood, white blood cells and some bacteria. RADIOGRAPHIC STUDIES: Chest x-ray shows the COMBINED RAIL OPERATOR shunt, but it is nonfunctional. No other concerns with the lungs. CT scan of brain is unremarkable, just old surgical findings and the CT scan abdomen showed the air fluid levels with fluid throughout a very distended stomach and small bowel up to [address] down to the pelvis with a decompressed terminal ileum. ASSESSMENT/PLAN: Cielo is a 69-year-old female, who presents with a distal small-bowel obstruction resulting in sequestration of fluid and dehydration and ongoing UTI. She has responded to 3 L of fluid. I think she will continue to respond as we gave her additional IV fluids. She has already been given cefepime and we are going to admit her to the ICU tonight. She told me very clear that she wants to be a DNR/DNI. In fact, she is really not interested in surgery, but if absolutely necessary, she might consider it. We are Electronically Signed By: CONNIE FORD MD 10/17/19 0638 PATIENT NAME: CIELO ADIHKARI CONSULTATION DATE OF : 48 REPORT #: [id number] PHYSICIAN: CONNIE FORD MD PCP: MARY VAZQUEZ PA-C REPORT IS CONFIDENTIAL AND NOT TO BE RELEASED WITHOUT AUTHORIZATION [facility] [address] [place] [id number] Signed going to pursue conservative measures here over a few days and see how things go. I have reviewed this with Cielo, her son Augusto as well as Dr. Lemus. They have all expressed understanding and agreed the above plan. Connie Ford MD ALB/MODL /[id number] cc: MD Mary Prakash PA-C Copies: CONNIE FORD MD, CHLOE K PA-C ~ Electronically Signed By: CONNIE FORD MD 10/17/19 0638 PATIENT NAME: CIELO ADHIKARI CONSULTATION DATE OF : 48 REPORT #: [id number] PHYSICIAN: CONNIE FORD MD PCP: MARY VAZQUEZ PA-C REPORT IS CONFIDENTIAL AND NOT TO BE RELEASED WITHOUT AUTHORIZATION
--- NOTE | 2019-10-17 07:37 | NUR ---
RECEIVED REPORT FROM GABINO HUERTAS. THIS RN TO BE PRIMARY TODAY
--- NOTE | 2019-10-17 09:00 | NUR ---
PTS DAUGHTER STAR IN ROOM TO SEE PT AT THIS TIME.
--- NOTE | 2019-10-17 09:45 | NUR ---
MAG RIDER FINISHED AND CEFEPIME TO START AT THIS TIME. THIS RN IN ROOM TO ASSIST PT BACK TO BED PER PT REQUEST. PT DOES GET TIRED WITH A STEP SHUFFLE TO THE BED. PT DOES RECOVER WITHIN A MINUTE OF LAYING DOWN IN THE BED. PT DID DESAT WITH MOVEMENT TO 85% ON 9L. PT DENIES ANY PAIN AT THIS TIME.
--- NOTE | 2019-10-17 10:30 | NUR ---
Spoke with Cielo and her daughter, Linda. Pt lives in a single story, ground level home. He son lives next door. Pt has some assistance from family, but states she does well on her own. She has 02 in the home. Daughter does not agree with pt, she is doing well. Pt then states she has not been able to care for self the last few days and was unable to cook or heat food. Pt does not want to leave her home. I will give [employer] brochure. We discussed paid cg and might need a few hours a week to assist. Pt does agree to meals on wheels. States she had them in the past , but stopped as they piled up when she couldn't eat. I will notify Capeco she would like to restart mow. Will follow up with pt. tomorrow.
[2019-10-17] MEDS ORDERED: ALDACTONE25 MG PO (12:13)
--- NOTE | 2019-10-17 12:20 | NUR ---
IN PTS ROOM REVIEWING PTS URINE OUTPUT AND GASTRIC TUBE OUTPUT. PT STATES THAT HER ABDOMINAL PAIN IS 0/10 AT THIS TIME. PER ORDERS FROM THIS RN CHANGED D5 LR RATE TO 150ML AND THIS RN STARTED A 1L BOLUS OF LR. PTS DAUGHTER STILL AT BEDSIDE. THIS RN TURNED PT DOWN TO 6L PER OXYMASK. PT TOLERATING WELL AT THIS TIME WITH A GOOD WAVE FORM AND SAING AT 97% ON 6L NC
--- NOTE | 2019-10-17 12:30 | EKG ---
[facility] [address] [place] [address] Signed Sinus bradycardia Cannot rule out Inferior infarct , age undetermined Anterior infarct (cited on or before 27-OCT-2015) ST \T\ T wave abnormality, consider lateral ischemia Abnormal ECG When compared with ECG of 02-DEC-2017 18:08, Vent. rate has decreased BY 53 BPM T wave inversion now evident in Inferior leads T wave inversion more evident in Anterolateral leads Confirmed by MAIRA NYE MD ([id number]) on 10/17/2019 12:30:06 PM Electronically Signed By: MAIRA NYE MD 10/17/19 1230 PATIENT NAME: GLORIA ADHIKARI Electrocardiogram DATE OF : 48 PHYSICIAN: MAIRA NYE MD REPORT #: [id number] REPORT IS CONFIDENTIAL AND NOT TO BE RELEASED WITHOUT AUTHORIZATION
--- NOTE | 2019-10-17 14:35 | NUR ---
GAVE REPORT TO OSBALDO HUERTAS. PT TRANSFERRED TO [facility] RM 109. PTS DAUGHTER ASSISTED STAFF IN THE [facility].
--- NOTE | 2019-10-17 15:17 | NUR ---
PT ARRIVED FROM CCU. REPORT RECEIVED FROM ALEKSANDAR SCHOFIELD. NG TUBE TO LOW INTERMITTANT SUCTION. O2 AT 5L BY OXYMASK WITH OXYGEN SATURATION OF 93%. COATES DRAINING TO GRAVITY. ASSESSMENT DONE. PT ORIENTED TO ALL. NORMAL STRENGHT. POOR CIRCULATION WITH CAP REFILL OF GREATER THAN 3 SECONDS. HAI TONES HYPO ACTIVE. PT DENIES PAIN AND NAUSEA AND REPORTS HUNGER. MAKAYLA AREA FULL OF DRIED STOOL. DEPENDS CHANGED. MAKAYLA CARE AND CATHETER CARE DONE. FRESH DEPENDS IN PLACE. NEW IV FLUID BAG IN PLACE. WARM BLANKETS PROVIDED. PT DEMONSTRATES USE OF I.S. REACHING 1250ML. NO ADDITIONAL REQUESTS OR COMPLAINTS. CALL LIGHT WITHIN REACH. BED RAILS UP.
--- NOTE | 2019-10-17 15:36 | NUR ---
PT HERE FOR SMALL BOWEL OBSTRUCTION. 1PERSON ASSIST UP TO CHAIR AND UP IN ROOM. NG TUBE IN PLACE TO LOW INTERMITTANT SUCTION. OUPUT DECREASING AND CLEAR IN COLOR AT THIS TIME. PT BEGINING TO DENY NAUSEA AND REPORT HUNGER. PT REMAINS ON 5L O2 BY OXYMASK WITH OXYGEN SATURATIONS IN LOW 90'S. BASELINE O2 USE OF 3L O2 AT NIGHT. COATES CATHETER IN PLACE, URINE CLOUDY WITH SEDIMENT AND CONCENTRATED. MINIMAL URINE OUTPUT THIS SHIFT. IV FLUID BOLUS GIVEN. PT REPORTING CRAVINGS FOR CIGGARETTS, NICOTENE PATCH STARTED. PT USES CALL LIGHT APPORPRIATLY.
--- NOTE | 2019-10-17 16:25 | NUR ---
PATIENT UP TO SHOWER, THIS SALES NEGOTIATOR ASSISTING. FRESH GOWN AND BRIEF ON. CALL LIGHT IN REACH
--- NOTE | 2019-10-17 17:06 | NUR ---
PATIENT AWAKE IN BED, DAUGHTER IN ROOM. COATES EMPTIED, VITALS AND I&OS CHARTED, CALL LIGHT IN REACH
--- NOTE | 2019-10-17 17:26 | NUR ---
THIS RN TO ROOM TO CHECK ON PT. PT FINISHED WITH SHOWER AND BACK TO BED. WARM BLANKETS PROVIDED. NG TUBE TO LOW INTERMITTANT SUCTION, GREEN DRANAGE NOTED. OXYGEN SATURATION AT 100% ON 5L O2 BY OM. PT WEANED TO 4L O2 BY OM. PT DENIES REQUESTS OR COMPLAINTS AT THIS TIME. CALL LIGHT WITHIN REACH. FAMILY AT BEDSIDE.
--- NOTE | 2019-10-17 18:50 | NUR ---
THIS RN TO ROOM TO CHECK ON PT. PT RESTING WITH EYES CLOSED. RESPIRATIONS EVEN AND UNLABORED. BED RAILS UP. CALL LIGHT WITHIN REACH. PT ALLOWED TO REST.
--- NOTE | 2019-10-17 19:15 | NUR ---
PT RESTING IN BED, AWAKE. NG TUBE TO LIWS, NASAL SECUREMENT DEVICE INTACT. PT REPORTS SOME NAUSEA, HOB ELEVATED. NO DISTRESS. IV FLUIDS INFUSING, SITE WNL. COUGH ALSO NOTED, PT DENIES NEEDS AT THIS TIME. CALL LIGHT IN REACH. BOARD UPDATED.
--- NOTE | 2019-10-17 20:45 | NUR ---
ASST PT TO TURN ON A RM LIGHT, TOOK VITALS, EMPTIED COATES, MARKED NG LISY, I&Os ARE DONE, CALL LIGHT IN REACH, NOTHING FURTHER REQUESTED BYPT AT THIS TIME
--- NOTE | 2019-10-17 21:19 | NUR ---
ASSESSMENT COMPLETE, SCHEDULED IV ABX INFUSING. IV SITES X2 WNL. PT ASKING ABOUT DIET AND WHEN SHE CAN EAT, EDUCATION PROVIDED. NG TUBE TO LWIS, OUTPUT GREEN IN COLOR. PT DENIES NAUSEA, VSS, PT REMAINS ON 4LOXYMASK. RECENTLY SEEN BY RT. NEW ORDERS FOR BREATHING TREATMENTS, RT IN ROOM FOR TREATMENT. PT DENIES PAIN. CALL LIGHT IN REACH.
--- NOTE | 2019-10-17 23:36 | NUR ---
PT CALLED @ 2320 TO USE BATHROOM. DUE TO THE COVID TEST PENDING, AND HAVING A NEB TREATMENT. 1PA WITH ALL EQUIPMENT, NG TUBE, COATES, OXYGEN. HAD A VERY SMALL LOOSE STOOL. BACK TO BED. CALL LIGHT WITHIN REACH.
--- NOTE | 2019-10-18 00:25 | NUR ---
PT RESTING IN BED WITH EYES CLOSED. 4LOXYMASK IN PLACE, O2 SAT 94%, HR 85. RR EVEN AND UNLABORED, NO DISTRESS NOTED. NG REMAINS AT LIWS. IV FLUIDS INFUSING AND CALL LIGHT IN REACH.
--- NOTE | 2019-10-18 01:56 | NUR ---
ASSESSMENT COMPLETE, VSS. PT RESTING QUIETLY IN BED, AWOKE EASILY TO VOICE. DENIES PAIN AND NAUSEA. 4LOXYMASK REMAIN IN PLACE, LUNG SOUNDS DIM THROUGHOUT. NO DISTRESS NOTED. NG TUBE REMAINS AT LIWS, 100MLS OUTPUT NOTED. NO FURTHER NEEDS, CALL LIGHT IN REACH.
--- NOTE | 2019-10-18 01:58 | NUR ---
asst with pt vitals, emptied goins, marked ng canister, i&os are done
--- NOTE | 2019-10-18 01:59 | NUR ---
VITALS AND I&OS DONE AND CHARTED. BEDSIDE TABLE AND CALL LIGHT IN REACH. PT NEEDS NOTHING AT THIS TIME.
--- NOTE | 2019-10-18 05:02 | NUR ---
SBA PT OFF BSC INTO BED, TOOK VITALS, EMPTIED BSC AND PAUL COATES CANSITER MARKED AT 350, RECORDED 50 ADDED IN THE CANISTER I&Os ARE DONE, CO REQUESTED NEW PILLOW CASE JIGNESH PILLOW FELL TO THE FLOOR RN IN FOR ASSESMENT, CALL LIGHT IN REACH, NOTHING FUTHER REQUESTED BY PT AT THIS TIME
--- NOTE | 2019-10-18 05:11 | NUR ---
VS AND I&O'S DONE AND STABLE. PT RESTING IN BED, NG TUBE TO LIWS. 4LOXYMASK IN PLACE, SPO2 WNL. NO DISTRESS NOTED. IV FLUIDS INFUSING, NEW BAG HUNG. IV SITE WNL. NO FURTHER NEEDS, CALL LIGHT IN REACH.
--- NOTE | 2019-10-18 06:50 | NUR ---
GOT PT UP TO BSC, BK TO BED, PT NEEDS NOTHING FURTHER AT THIS TIME
--- NOTE | 2019-10-18 08:00 | NUR ---
REPORT RECEIVED FROM ALEKSANDAR CANTU. THIS RN WILL BE ASSUMING CARE OF PT FOR THE NEXT 1.5 HOURS WHILE PTS RN ATTENDS A MEETING.
--- NOTE | 2019-10-18 08:30 | NUR ---
MORNING ASSESSEMENT AND MEDICATION DUE. PT RESTING IN BED. PT REPORTS SORNESS TO COCCYX. AREA ASSESSED, NON BLANCHABLE REDNESS NOTED, BARRIER CREAM AND ALLEVYN APPLED. PT DENIES PAIN AND NAUSEA. NG TUBE TO LOW INTERMITTANT SUCTION WITH CAMPOS/GREEN DRAINAGE NOTED. ABDOMEN SOFT. NO BOWEL TONES NOTED. PT DENIES PASSING RICKIE BUT HAS HAD BOWEL MOVEMENTS THIS MORNING. LUGN SOUNDS CLEAR. I.S. USE DEMONSTARTED REACHING 1000ML. O2 WEANED TO 3L O2 BY GA WITH O2 SATURATIONS ABOVE 92%. X-RAY TO BEDSIDE FOR IMAGING. WARM BLANKETS PROVIDED. ANA MARIA DDITIONAL REQUESTS OR COMPLAINTS. SCD'S PLACE PT STATES "THOSE DONT DO ANYTHING." EDUCATION DONNE. PT AGREES TO TRY SCD'S AT THIS TIME. BED RAILS UP. CALL LIGHT WIHTIN REACH. PT REMAINS ON 3L O2 BY GA AT THIS TIME.
--- NOTE | 2019-10-18 08:59 | NUR ---
CHW CONTACTED ELSA AT [facility] IN REGARDS TO MEALS ON WHEELS- ELSA STATED PATIENT IS NOT IN THERE SYSTEM AND PROVIDED A CONTACT NUMBER [phone] TO HAVE PATIENT CALL TO GATHER SOME INFORMATION. CHW PROVIDED TO MATERIALS ASSISTANT ALEISHA MORAES WILL PROVIDE NUMBER TO PATIENT AND HAVE PATIENT CONTACT ELSA.
--- NOTE | 2019-10-18 09:49 | NUR ---
SPOKE WITH PATIENT IN ROOM. GAVE PATIENT CONTACT INFORMATION FOR [employer]. SHE STATES SHE ISN'T SURE SHE NEEDS IT, WANTS TO TALK WITH HER KIDS. DISCUSSED WHEN SHE DECIDES, SHE CAN CALL THE NUMBER AND SPEAK WITH THEM DIRECTLY. DISCUSSED THEY ONLY DELIVER ONCE A WEEK NOW, ON TUESDAYS. SO TO CALL BEFORE TUESDAY IF SHE NEEDS IT FOR NEXT WEEK. SHE STATES UNDERSTANDING. PATIENT HAS NO OTHER NEEDS AT THIS TIME. CM WILL CONTINUE TO FOLLOW.
--- NOTE | 2019-10-18 09:53 | NUR ---
REPORT GIVEN TO ALEKSANDAR CANTU WHO WILL BE RESUMING CARE OF PT. QUESTIONS ANSWERED.
--- NOTE | 2019-10-18 10:08 | NUR ---
PT CONTIOUES TO HAVE THE SMALL BOWEL FOLLOW-THROUGH AT THIS TIME. PT DENIES ANY C/O'S AT THIS TIME.
--- NOTE | 2019-10-18 10:31 | NUR ---
PT CALL LIGHT ON. PT REQUESTS ASSISTANCE UP TO BEDSIDE COMODE. 1 PERSON ASSIST FOR TUBE MANAGEMENT. PT HAS 100ML LIQUID STOOL. PT BACK TO BED. WARM BLANKETS PROVIDED. NO ADDITIONAL REQUESTS OR COMPLAINTS. CALL LIGHT WITHIN REACH.
--- NOTE | 2019-10-18 11:43 | NUR ---
PT REQUESTS ASSISTANCE TO BEDSIDE COMMODE. YELLOW, LIQUID STOOL. BARRIER CREAM AND ALLEVYN APPLIED. PT ASSISTED BACK TO BED. SUPPORT PILLOW PLACED UNDER LEFT SIDE. CALL LIGHT WITHIN REACH. NO FURTHER REQUESTS AT THIS TIME.
--- NOTE | 2019-10-18 12:13 | NUR ---
TALKED WITH XRAY AND PT IS COMPLETE WITH SMALL BOWEL FOLLOWTHROUGH. NG BACK TO LIWS AT THIS TIME. VISITING WITH DAUGHTER AT THIS TIME.
--- NOTE | 2019-10-18 15:01 | NUR ---
PT WAS UP TP THE BS COMMODE AND WANTED TO SIT FOR A FEW AT THIS TIME. DAUGHTER AT THE BEDSIDE. WHEN ASKED IF SHE NEEDED ANYTHING ELSE PT STATE S" CUP OF COFFEE AND A GOOD CIGERATE" STAFF ASKED IF SHE NEEDED SOME CLAU LOGZ, NO THEY DONT WORK.
--- NOTE | 2019-10-18 16:20 | NUR ---
NG TUBE REMOVED. PT TOLERATED WELL. PT ADVISED TO SLOWLY SIP ICE WATER. PATIENT REPORTS NO PAIN OR DISCOMFORT AT THIS TIME. PT EXPRESSED DESIRE TO TRY BROTH. ADVISED TO WAIT TO SEE HOW SHE TOLERATES THE WATER FIRST. PT AGREEABLE TO THIS PLAN. CALL LIGHT WITHIN REACH. NO FURTHER NEEDS AT THIS TIME.
--- NOTE | 2019-10-18 16:49 | NUR ---
PT DOING WELL WITH THE CLEAR LIQUIDS. STARTED WITH WATER AMD HAS TOLERATED IT. ORDER PT A CLEAR LIQUID TRAY.
--- NOTE | 2019-10-18 17:48 | NUR ---
PT TOLERATED CLEAR LIQUID TRAY WELL.
--- NOTE | 2019-10-18 18:50 | NUR ---
PT DID WELL WITH HER CLEAR LIQUID TRAY. HAS BEEN UP TO THE BEDSIDE COMMODE AND STILL HAVING LIQUID STOOLS. PT BACK TO BED AND IS WATCHING TV.
--- NOTE | 2019-10-18 20:04 | NUR ---
PT'S NEB TRT WAS FINISHED, SHE IS NOW BACK ON OXYMASK. SHE DENIES NEEDS AT THIS TIME. CALL LIGHT IS CLOSE.
--- NOTE | 2019-10-19 00:45 | NUR ---
HOB ELEVATED, ON 3L OXYMASK, EYES CLOSED, NO DISTRESS, IVF INFUAING, CALL LIGHT AT BEDSIDE,F/C PATENT, USES C
--- NOTE | 2019-10-19 02:45 | NUR ---
Pt awake, sitting edge of bed, no c/o pain, O2 #L Oxymask, IVF infusing,
--- NOTE | 2019-10-19 04:12 | NUR ---
PER PT REQUEST I BROUGHT HER A WARM BLANKET. PT NEEDS NOTHING ELSE AT THIS TIME.
--- NOTE | 2019-10-19 06:16 | NUR ---
Has slept most of this shift. O2 3L NC via Oxymask, crackles and exp wheezing bilat, gets nebs. IVF infusing, no c/o adverser action to abx. Toleraating liquids and diet well. f/c patent. had bm yesterday. uses BSC
--- NOTE | 2019-10-19 06:30 | NUR ---
Dr Barrera in room, f/c dc'd at [facility] verbal ordere. procedure explained, tolerated well. IVf infusing, on 3L Oxymask
--- NOTE | 2019-10-19 06:36 | NUR ---
VITALS DONE AND CHARTED. GARBAGES EMPTIED. BEDSIDE TABLE AND CALL LIGHT IN REACH. PT NEEDS NOTHING MORE AT THIS TIME.
--- NOTE | 2019-10-19 07:44 | NUR ---
RECEIVED REPORT FROM JUAN HUERTAS. PT SITTING ON THE EDGE OF THE BED. PT IS DRESSED AND STATES THAT SHE IS READY TO GO HOME. DISCUSSED WITH PT THAT WE WILL GET HER OUT SOONER RATHER THAN LATER
--- NOTE | 2019-10-19 08:43 | NUR ---
RECEIVED PHONE CALL FROM ASHUTOSH CENTENO WHO SAYS PATIENTS HOUSE HAS A LEAK AND SHE HAS NO WATER AND HE IS CONCERNED THAT SHE SHOULDN'T BE DISCHARGED TODAY. EXPLAINED THAT DISCHARGE IS ALREADY WRITTEN AND MEDICALLY SHE IS READY. STATED I WOULD TALK WITH DIETARY SERVICES MANAGER AND SEE WHAT THE PLAN IS. SPOKE WITH DIETARY SERVICES MANAGER CHANDU WHO STATES PATIENT IS DRESSED AND IS DETERMINED TO BE DISCHARGED TODAY. SPOKE WITH PATIENT IN ROOM. SHE IS UNAWARE OF ANY WATER ISSUE. SHE CALLED DAUGHTER WHILE I WAS IN ROOM. DAUGHTER CONFIRMED THE ISSUE BUT STATES PATIENT CAN COME TO THEIR HOUSE UNTIL THEY GET LEAK FIXED. PATIENT STATED THIS TO ME AND STATES SHE FEELS SAFE TO DO SO. STAFF UPDATED.
[2019-10-19] MEDS ORDERED: MACROBID 100 M100 MG PO (09:14)
[2019-10-19] MEDS ORDERED: ADULT ASPIRIN R81 MG PO (09:37)
--- NOTE | 2019-10-19 10:11 | NUR ---
VITALS AND I&OS CHARTED. DAUGHTER IN ROOM. READY FOR D/C
--- NOTE | 2019-10-20 13:16 | DS ---
[facility] [address] [place], [place] [address] Signed ADMISSION DATE: 10/17/2019 DISCHARGE DATE: 10/19/2019 FINAL DIAGNOSES: 1. Distal small-bowel obstruction. 2. Urinary tract infection (Escherichia coli). PROCEDURES: Chest x-ray and CT scan of abdomen and pelvis. HISTORY OF PRESENT ILLNESS: Cielo is a 69-year-old significantly debilitated female, who was found on the floor by her son after work. She was having generalized abdominal pain with nausea and vomiting prior to the emergency room. She has had previous abdominal surgery to include a hysterectomy and a laparoscopic cholecystectomy as well as a ORAL SURGERY TECHNICIAN shunt. Her blood pressures were a little low, but she responded nicely to fluids. Her abdomen was [id number]-bb-blgbsptppr distended, a little firm with dullness to percussion throughout, but no peritoneal signs or symptoms. White count was borderline high, but lactic acid was fine. Her urine came back dirty and it proved to be E. coli. She got cefepime initially and then Rocephin for 3 days. Chest x-ray was unremarkable, but the CT scan showed air-fluid levels from the stomach all the way through the small bowel into the pelvis. The terminal ileum was decompressed. She was admitted as above. She maintained herself as a DNR/DNI. HOSPITAL COURSE: Cielo was admitted as above with her small-bowel obstruction and treated conservatively. We maintained her on Rocephin throughout her hospital stay due the urinary tract infection and her multiple allergies. We found that she had several bowel movements and her abdominal exam had improved. We therefore checked the surgeon's small-bowel follow-through and contrast did go through. Her small bowel is well dilated and went through an area in the pelvis and then followed by multiple bowel movements. She has been on clear liquids and doing fine. Again, she has declined surgery. Consequently, we removed the Benavides catheter and we are going to put her on a soft diet. She will be going home most likely later today on nitrofurantoin for her urinary tract infection. Her abdominal exam at this point is soft, flat, nontender, and she is obviously much more hydrated at this point, looks and feels much better. DISCHARGE PLANS AND MEDICATIONS: Cielo is going to be sent home with Macrobid 100 mg one tablet p.o. b.i.d. for 4 additional days. That will complete seven full days of antibiotics for her urinary tract infection involving E.coli. She can resume all her chronic medications including Electronically Signed By: CONNIE FORD MD 10/20/19 1316 PATIENT NAME: CIELO ADHIKARI DISCHARGE SUMMARY DATE OF : 48 REPORT #: [id number] PHYSICIAN: CONNIE FORD MD PCP: AYDIN MARTINEZ PA-C REPORT IS CONFIDENTIAL AND NOT TO BE RELEASED WITHOUT AUTHORIZATION [address] [address] Signed the aspirin. She should stay on a soft diet, probably for the next few days and then advance as tolerated. She can perform her activities of daily living as usual including showering bathing, walking up and down stairs as needed. She can also continue her home oxygen as previously ordered. She has expressed understanding and agrees to above plan. She will follow up my office as needed. She has expressed understanding and wishes to proceed as above. MD JB Prakash/SWAPNILL /[id number] cc: Chart Filed Incomplete JORGE LUIS Siddiqui MD Copies: CHART FILED INCOMPLETE AYDIN MARTINEZ PA-C, ANDREW L MD ~ Electronically Signed By: CONNIE FORD MD 10/20/19 1316 PATIENT NAME: CIELO ADHIKARI DISCHARGE SUMMARY DATE OF : 48 REPORT #: [id number] PHYSICIAN: CONNIE FORD MD PCP: AYDIN MARTINEZ PA-C REPORT IS CONFIDENTIAL AND NOT TO BE RELEASED WITHOUT AUTHORIZATION
== END 2019-10-19 11:05 | disposition home or self-care (01) | DRG 389 ==
LOC: ED 19:45 → MS 10-17 01:06 → CCU 10-17 01:06 → MS 10-17 14:45
PROVIDERS: ADMIT Colon & Rectal Surgery
DX: K56.50 Intestinal adhesions [bands], unspecified as to partial versus complete obstruction (principal); N39.0 Urinary tract infection, site not specified; J96.11 Chronic respiratory failure with hypoxia; Z20.828 Contact with and (suspected) exposure to other viral communicable diseases; B96.20 Unspecified Escherichia coli [E. coli] as the cause of diseases classified elsewhere; E78.5 Hyperlipidemia, unspecified; J43.9 Emphysema, unspecified; F17.210 Nicotine dependence, cigarettes, uncomplicated; E86.0 Dehydration; I25.2 Old myocardial infarction; I25.10 Atherosclerotic heart disease of native coronary artery without angina pectoris; Z66 Do not resuscitate; Z95.5 Presence of coronary angioplasty implant and graft; Z98.2 Presence of cerebrospinal fluid drainage device; Z79.82 Long term (current) use of aspirin; Z79.899 Other long term (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 therapy; Z88.1 Allergy status to other antibiotic agents; Z88.5 Allergy status to narcotic agent; Z88.2 Allergy status to sulfonamides; Z88.8 Allergy status to other drugs, medicaments and biological substances
CPT/HCPCS: 36415; 51702; 70450; 71045; 74176; 74250; 80048; 80053; 81001; 83605; 83735; 84100; 84134; 84484; 85025; 87077; 87088; 87186; 93005; 93010; 94640; 94760; 99285-25; 99406; C9113; C9803; J0690; J0692; J0696; J1650; J2405; J3475; J7030; J7121; U0003

== ENCOUNTER 2019-10-22 12:14 | Emergency (ER) | payer MEDICARE, OTHER ==
[~2019-10-22] VITALS: Ht 149.9 cm; Wt 44.9 kg
--- OUTSIDE RECORDS SUMMARY | ~2019-10-22 | XMS | Encounter Summary ---
Demographics + + + | Address | [address] | | | [place] [address] | + + + | Home Phone | | + + + | Preferred Language | Unknown | + + + | Marital Status | | + + + | Sikhism Affiliation | Unknown | + + + | Race | White | + + + | Ethnic Group | Not or | + + + Author + + + | Author | [facility] | | | and [place] | + + + | Organization | [facility] | | | and [...] Team Providers + +------+ + | Care Tactical/Mobile Watch Officer Name | Role | Phone | + +------+ + | Lance Pandya DO | PCP | | + +------+ + Encounter Details +--------+ + + + + | Date | Type | Department | Care Team | Description | +--------+ + + + + | 06/22/ | Abstract | [facility] | Chana Luu, | | | 2016 | | CARDIOLOGY [address] | MD [address] | | | | | [place], | [place], [place] | | | | | [place] [address] | [address] | | | | | [phone] | | | +--------+ + + + [...] Not on filedocumented as of this encounter Procedures + +--------+ + + + | Procedure Name | Priori | Date/Time | Associated Diagnosis | Comments | | | ty | | | | + +--------+ + + + | EXTERNAL LAB: | Routin | 10/27/2015 | | Results for this | | GLUCOSE | e | | | procedure are in the | | | | | | results section. | + +--------+ + + + | EXTERNAL LAB: | Routin | 10/27/2015 | | Results for this | | TROPONIN T | e | | | procedure are in the | | | | | | results section. | + +--------+ + + + | EXTERNAL LAB: ALT | Routin | 10/27/2015 | | Results for this | | | e | | | procedure are in the | | | | | | results section. | + +--------+ + + + | EXTERNAL LAB: AST | Routin | 10/27/2015 | | Results for this | | | e | | | procedure are in the | | | | | | results section. | + +--------+ + + + | EXTERNAL LAB: | Routin | 10/27/2015 | | Results for this | | BILIRUBIN, TOTAL | e | | | procedure are in the | | | | | | results section. | + +--------+ + + + | EXTERNAL LAB: | Routin | 10/27/2015 | | Results for this | | ALBUMIN | e | | | procedure are in the | | | | | | results section. | + +--------+ + + + | EXTERNAL LAB: | Routin | 10/27/2015 | | Results for this | | PROTEIN, TOTAL | e | | | procedure are in the | | | | | | results section. | + +--------+ + + + | EXTERNAL LAB: | Routin | 10/27/2015 | | Results for this | | MAGNESIUM | e | | | procedure are in the | | | | | | results section. | + +--------+ + + + | EXTERNAL LAB: | Routin | 10/27/2015 | | Results for this | | CALCIUM | e | | | procedure are in the | | | | | | results section. | + +--------+ + + + | EXTERNAL LAB: CARBON | Routin | 10/27/2015 | | Results for this | | DIOXIDE | e | | | procedure are in the | | | | | | results section. | + +--------+ + + + | EXTERNAL LAB: | Routin | 10/27/2015 | | Results for this | | CHLORIDE | e | | | procedure are in the | | | | | | results section. | + +--------+ + + + | EXTERNAL LAB: | Routin | 10/27/2015 | | Results for this | | POTASSIUM | e | | | procedure are in the | | | | | | results section. | + +--------+ + + + | EXTERNAL LAB: SODIUM | Routin | 10/27/2015 | | Results for this | | | e | | | procedure are in the | | | | | | results section. | + +--------+ + + + | EXTERNAL LAB: CBC | Routin | 10/27/2015 | | Results for this | | | e | | | procedure are in the | | | | | | results section. | + +--------+ + + + documented in this encounter Results External Lab: Glucose (10/27/2015) + +---------+ + + + | Component | Value | Ref Range | Performed | Pathologist | | | | | At | Signature | + +---------+ + + + | Glucose, | 163 (A) | 70 - 100 | REFERENCE | | | External | | | LAB | | | | | | [facility] | | + +---------+ + + + + + + + + | Performing | Address | City/State/Zipcode | Phone Number | | Organization | | | | + + + + + | REFERENCE LAB | [address] | [place] | [phone] | | [facility] | | [address] | | + + + + + | REFERENCE LAB | [address] [facility] | [place] | [phone] | | [facility] | | [address] | | + + + + + External Lab: Troponin T (10/27/2015) + +-------+ + + + | Component | Value | Ref Range | Performed | Pathologist | | | | | At | Signature | + +-------+ + + + | Troponin T, | 0.010 | 0.01 | REFERENCE | | | External | | | LAB | | | | | | [facility] | | + +-------+ + + + + + + + + | Performing | Address | City/State/Zipcode | Phone Number | | Organization | | | | + + + + + | REFERENCE LAB | [address] | [place] | [phone] | | [facility] | | [address] | | + + + + + | REFERENCE LAB | [address] | [place] | [phone] | | [facility] | | [address] | | + + + + + External Lab: ALT (10/27/2015) + +--------+ + + + | Component | Value | Ref Range | Performed | Pathologist | | | | | At | Signature | + +--------+ + + + | ALT, | 56 (A) | 7 - 52 | REFERENCE | | | External | | | LAB | | | | | | [facility] | | + +--------+ + + + + + + + + | Performing | Address | City/State/Zipcode | Phone Number | | Organization | | | | + + + + + | REFERENCE LAB | [address] | [place] | [phone] | | [facility] | | [address] | | + + + + + | REFERENCE LAB | [address] | [place] | [phone] | | [facility] | | [address] | | + + + + + External Lab: AST (10/27/2015) + +--------+ + + + | Component | Value | Ref Range | Performed | Pathologist | | | | | At | Signature | + +--------+ + + + | AST, | 59 (A) | 13 - 39 | REFERENCE | | | External | | | LAB | | | | | | [facility] | | + +--------+ + + + + + + + + | Performing | Address | City/State/Zipcode | Phone Number | | Organization | | | | + + + + + | REFERENCE LAB | [address] [facility] | [place] | [phone] | | [facility] | | [address] | | + + + + + | REFERENCE LAB | [address] [facility] | [place] | [phone] | | [facility] | | [address] | | + + + + + External Lab: Bilirubin, Total (10/27/2015) + +-------+ + + + | Component | Value | Ref Range | Performed | Pathologist | | | | | At | Signature | + +-------+ + + + | Bilirubin, | 0.4 | 0 - 1.2 | REFERENCE | | | Total, | | | LAB | | | External | | | [facility] | | + +-------+ + + + + + + + + | Performing | Address | City/State/Zipcode | Phone Number | | Organization | | | | + + + + + | REFERENCE LAB | [address] | [place] | [phone] | | [facility] | | [address] | | + + + + + | REFERENCE LAB | [address] [facility] | [place], [place] | [phone] | | [facility] | | [address] | | + + + + + External Lab: Albumin (10/27/2015) + +---------+ + + + | Component | Value | Ref Range | Performed | Pathologist | | | | | At | Signature | + +---------+ + + + | Albumin, | 3.2 (A) | 3.5 - 5 | REFERENCE | | | External | | | LAB | | | | | | [facility] | | + +---------+ + + + + + + + + | Performing | Address | City/State/Zipcode | Phone Number | | Organization | | | | + + + + + | REFERENCE LAB | [address] [facility] | [place] | [phone] | | [facility] | | [address] | | + + + + + | REFERENCE LAB | [address] [facility] | [place] | [phone] | | [facility] | | [address] | | + + + + + External Lab: Protein, Total (10/27/2015) + +-------+ + + + | Component | Value | Ref Range | Performed | Pathologist | | | | | At | Signature | + +-------+ + + + | Protein, | 6.0 | 6 - 8 | REFERENCE | | | Total, | | | LAB | | | External | | | [facility] | | + +-------+ + + + + + + + + | Performing | Address | City/State/Zipcode | Phone Number | | Organization | | | | + + + + + | REFERENCE LAB | [address] | [place] | [phone] | | [facility] | | [address] | | + + + + + | REFERENCE LAB | [address] | [place] | [phone] | | [facility] | | [address] | | + + + + + External Lab: Magnesium (10/27/2015) + +---------+ + + + | Component | Value | Ref Range | Performed | Pathologist | | | | | At | Signature | + +---------+ + + + | Magnesium, | 1.6 (A) | 1.7 - 2.5 | REFERENCE | | | External | | | LAB | | | | | | [facility] | | + +---------+ + + + + + + + + | Performing | Address | City/State/Zipcode | Phone Number | | Organization | | | | + + + + + | REFERENCE LAB | [address] [facility] | [place] | [phone] | | [facility] [place] | | [address] | | + + + + + | REFERENCE LAB | [address] | [place] | [phone] | | [facility] | | [address] | | + + + + + External Lab: Calcium (10/27/2015) + +---------+ + + + | Component | Value | Ref Range | Performed | Pathologist | | | | | At | Signature | + +---------+ + + + | Calcium, | 8.3 (A) | 8.4 - 10.2 | REFERENCE | | | External | | | LAB | | | | | | [facility] | | + +---------+ + + + + + + + + | Performing | Address | City/State/Zipcode | Phone Number | | Organization | | | | + + + + + | REFERENCE LAB | [facility] | [place] | [phone] | | [facility] | | [address] | | + + + + + | REFERENCE LAB | [facility] [address] | [place] | [phone] | | [facility] | | [address] | | + + + + + External Lab: Carbon Dioxide (10/27/2015) + +-------+ + + + | Component | Value | Ref Range | Performed | Pathologist | | | | | At | Signature | + +-------+ + + + | Carbon | 24 | 19 - 31 | REFERENCE | | | Dioxide, | | | LAB | | | External | | | [facility] | | + +-------+ + + + + + + + + | Performing | Address | City/State/Zipcode | Phone Number | | Organization | | | | + + + + + | REFERENCE LAB | [address] | [place] | [phone] | | [facility] | | [address] | | + + + + + | REFERENCE LAB | [address] | [place] | [phone] | | [facility] | | [address] | | + + + + + External Lab: Chloride (10/27/2015) + +-------+ + + + | Component | Value | Ref Range | Performed | Pathologist | | | | | At | Signature | + +-------+ + + + | Chloride, | 101 | 95 - 112 | REFERENCE | | | External | | | LAB | | | | | | [facility] | | + +-------+ + + + + + + + + | Performing | Address | City/State/Zipcode | Phone Number | | Organization | | | | + + + + + | REFERENCE LAB | [address] | [place] | [phone] | | [facility] | | [address] | | + + + + + | REFERENCE LAB | [address] | [place] | [phone] | | [facility] | | [address] | | + + + + + External Lab: Potassium (10/27/2015) + +---------+ + + + | Component | Value | Ref Range | Performed | Pathologist | | | | | At | Signature | + +---------+ + + + | Potassium, | 3.3 (A) | 3.6 - 5.1 | REFERENCE | | | External | | | LAB | | | | | | [facility] | | + +---------+ + + + + + + + + | Performing | Address | City/State/Zipcode | Phone Number | | Organization | | | | + + + + + | REFERENCE LAB | [address] [place] [address] [facility] | [place] | [phone] | | [facility] | | [address] | | + + + + + | REFERENCE LAB | [address] [place] [address] [facility] | [place] | [phone] | | [facility] | | [address] | | + + + + + External Lab: Sodium (10/27/2015) + +-------+ + + + | Component | Value | Ref Range | Performed | Pathologist | | | | | At | Signature | + +-------+ + + + | Sodium, | 135 | 132 - 143 | REFERENCE | | | External | | | LAB | | | | | | [facility] | | + +-------+ + + + + + + + + | Performing | Address | City/State/Zipcode | Phone Number | | Organization | | | | + + + + + | REFERENCE LAB | [address] | [place] | [phone] | | [facility] [place] | | [address] | | + + + + + | REFERENCE LAB | [address] [facility] | [place] | [phone] | | [facility] | | [address] | | + + + + + External Lab: CBC (10/27/2015) + + + + + + | Component | Value | Ref Range | Performed | Pathologist | | | | | At | Signature | + + + + + + | WBC, | 8.3 | 4.5 - 11 | REFERENCE | | | External | | | LAB | | | | | | [facility] | | + + + + + + | HGB, | 11.2 (A) | 12 - 16 | REFERENCE | | | External | | | LAB | | | | | | [facility] | | + + + + + + | HCT, | 33.9 (A) | 35 - 45 | REFERENCE | | | External | | | LAB | | | | | | [facility] | | + + + + + + | PLT, | 199 | 140 - 440 | REFERENCE | | | External | | | LAB | | | | | | [facility] | | + + + + + + | RBC, | 3.64 (A) | 3.8 - 5.1 | REFERENCE | | | External | | | LAB | | | | | | [facility] | | + + + + + + | MCV, | 93 | 81 - 99 | REFERENCE | | | External | | | LAB | | | | | | [facility] | | + + + + + + | RDW, | 13 | 10.5 - 15 | REFERENCE | | | External | | | LAB | | | | | | [facility] | | + + + + + + + + + + + | Performing | Address | City/State/Zipcode | Phone Number | | Organization | | | | + + + + + | REFERENCE LAB | [facility] | [place] | [phone] | | [facility] | | [address] | | + + + + + | REFERENCE LAB | [address] [place] [address] [address] | [place] | [phone] | | [facility] | | [address] | | + + + + + documented in this encounter Visit Diagnoses Not on filedocumented in this encounter"
--- OUTSIDE RECORDS SUMMARY | ~2019-10-22 | XMS | Encounter Summary ---
Demographics + + + | Address | [address] | | | [place] [address] | + + + | Home Phone | | + + + | Preferred Language | Unknown | + + + | Marital Status | | + + + | Zoroastrian Affiliation | Unknown | + + + | Race | White | + + + | Ethnic Group | Not or | + + + Author + + + | Author | [facility] | | | and [place] | + + + | Organization | [facility] | | | [...] Team Providers + +------+ + | Care Crime Scene Photographer Name | Role | Phone | + +------+ + | Lance Pandya DO | PCP | | + +------+ + Reason for Visit + + + | Reason | Comments | + + + | Medication Refill | | + + + Encounter Details +--------+--------+ + + + | Date | Type | Department | Care Team | Description | +--------+--------+ + + + | 02/08/ | Refill | [facility] | Luis Manuel Hammond, | Medication Refill | | 2019 | | CARDIOLOGY [place]ENNIFER | [address] | | | | | [address] | [facility], | | | | | [place] | [place] [address] | | | | | [address] | [phone] | | | | | [phone] | | | +--------+--------+ + + + Social History + +-------+ +--------+------+ | Tobacco Use | Types | Packs/Day | Years | Date | | | | | Used | | + +-------+ +--------+------+ | Current Every Day | | 1 | 50 | | | [...]
--- OUTSIDE RECORDS SUMMARY | ~2019-10-22 | XMS | Encounter Summary ---
Demographics + + + | Address | [address] | | | [place] [address] | + + + | Home Phone | | + + + | Preferred Language | Unknown | + + + | Marital Status | | + + + | Episcopal Affiliation | MET | + + + | Race | White | + + + | Ethnic Group | Not or | + + + Author + + + | Author | [facility] | + + + | Organization | [facility] | + + + | Address [...] Team Providers + +------+ + | Care Stope Miner Name | Role | Phone | + +------+ + | Anil Baker DO | PCP | | + +------+ + Encounter Details +--------+ + + + + | Date | Type | Department | Care Team | Description | +--------+ + + + + | 10/18/ | Results | LAB REFERRED TESTS | Other, Faculty | | | 2007 | Only | [address] [facility] | [phone] | | | | | [address] | | | | | | [place], [place] | | | | | | [address] | | | +--------+ + + + + Social History + + + +--------+------+ | Tobacco Use | Types | Packs/Day | Years | Date | | | | | Used | | + + + +--------+------+ | Current Every Day | Cigarettes | 2 | 40 | | | Smoker | | | | | + + + +--------+------+ + + +---------+ + | Alcohol Use | Drinks/Week | oz/Week | Comments | + + +---------+ + | Yes | | | | + + +---------+ [...] | + +--------+ + + + | EJECTION FRACTION | Routin | 10/19/2007 | | Results for this | | | e | 7:59 AM | | procedure are in the | | | | PDT | | results section. | + +--------+ + + + documented in this encounter Results EJECTION FRACTION (10/19/2007 7:59 AM PDT) + + + + + + | Component | Value | Ref Range | Performed | Pathologist | | | | | At | Signature | + + + + + + | EJECTION | 70 - 75%Comment: EF | | [facility] | | | FRACTION | Recorded from | | OF | | | | Transthoracic | | CARDIOLOGY | | | | Echocardiogram | | | | + + + + + + + + | Specimen | + + | | + + + + + + + | Performing | Address | City/State/Zipcode | Phone Number | | Organization | | | | + + + + + | [facility] | [address] | [place], [place] | | | CARDIOLOGY | [address] | [address] | | + + + + + | [facility] | [address] | [place], [place] | | | CARDIOLOGY | [address] | [address] | | + + + + + documented in this encounter Visit Diagnoses Not on filedocumented in this encounter"
--- OUTSIDE RECORDS SUMMARY | ~2019-10-22 | XMS | Encounter Summary ---
Demographics + + + | Address | [address] | | | [place] [address] | + + + | Home Phone | | + + + | Preferred Language | Unknown | + + + | Marital Status | | + + + | Advent Affiliation | Unknown | + + + | Race | White | + + + | Ethnic Group | Not or | + + + Author + + + | Author | [facility] | | | and [place] | + + + | Organization | [facility] | | | and [...] Team Providers + +------+ + | Care Bobbin Handler Name | Role | Phone | + +------+ + | Lance Pandya DO | PCP | | + +------+ + Reason for Referral Diagnostic/Screening (Routine) +--------+--------+ + + + + | Status | Reason | Specialty | Diagnoses / | Referred By | Referred To | | | | | Procedures | Contact | Contact | +--------+--------+ + + + + | Closed | | Radiology | Diagnoses | [place], | [facility] | | | | | Precordial | Chana Gandhi MD | Medicine | | | | | pain | [address] | [address] | | | | | Procedures | [place] | [place], | | | | | [place] [facility] | [place], [place] | [place] | | | | | Stress Test | [address] | [address] | | | | | (Vasodilator | Phone: | Phone: | | | | | ) CHG | [phone] | [phone] | | | | | MYOCARDIAL | Fax: | Fax: | | | | | SPECT | [phone] | [phone] | | | | | MULTIPLE | | | | | | | STUDIES [facility] | | | | | | | CV STRS TST | | | | | | | XERS&/OR RX | | | | | | | CONT ECG W/O | | | | | | | I&R [facility] | | | | | | | CARDIAC | | | | | | | STRESS | | | | | | | TST,INTERP/R | | | | | | | EPT ONLY | | | +--------+--------+ + + + + Reason for Visit Diagnostic/Screening (Routine) +--------+--------+ + + + + | Status | Reason | Specialty | Diagnoses / | Referred By | Referred To | | | | | Procedures | Contact | Contact | +--------+--------+ + + + + | Closed | | Radiology | Diagnoses | [place], | [facility] | | | | | Precordial | Chana Gandhi MD | Medicine | | | | | pain | [address] | [address] | | | | | Procedures | [place] | [place], | | | | | [place] [facility] | [place] | [place] | | | | | Stress Test | [address] | [address] | | | | | (Vasodilator | Phone: | Phone: | | | | | ) CHG | [phone] | [phone] | | | | | MYOCARDIAL | Fax: | Fax: | | | | | SPECT | [phone] | [phone] | | | | | MULTIPLE | | | | | | | STUDIES [facility] | | | | | | | CV STRS TST | | | | | | | XERS&/OR RX | | | | | | | CONT ECG W/O | | | | | | | I&R [facility] | | | | | | | CARDIAC | | | | | | | STRESS | | | | | | | TST,INTERP/R | | | | | | | EPT ONLY | | | +--------+--------+ + + + + Encounter Details +--------+ + + + + | Date | Type | Department | Care Team | Description | +--------+ + + + + | 08/06/ | Hospital | [facility] | Chana Luu, | Precordial pain | | 2017 | Encounter | [facility] | MD [address] | | | | | MEDICINE [address] [place] | | | | | [place], | [address] | | | | | [place] [address] | | | | | | [phone] | [facility]patient [facility] | | +--------+ + + + + [...] + + documented as of this encounter Medications at Time of Discharge + + + +---------+ + + | Medication | Sig | Dispensed | Refills | Start | End Date | | | | | | Date | | + + + +---------+ + + | acetaminophen | Take 1-2 tablets by | | 0 | 10/25/19 | | | (TYLENOL) 325 mg | mouth every four | | | 16 | | | tablet | hours as needed. | | | | | | | Indications: Pain | | | | | + + + +---------+ + + | | Take 3 mLs by | | 0 | | | | albuterol-ipratropiu | nebulization Every 4 | | | | | | m (DUONEB) 2.5-0.5 | hours. | | | | | | mg/3 mL SOLN | | | | | | + + + +---------+ + + | aspirin 81 mg EC | Take 1 tablet by | 150 | 2 | 09/18/19 | | | tablet | mouth Daily. | tablet | | 16 | | + + + +---------+ + + | docusate-senna | Take 2 tablets by | | 0 | 10/25/19 | | | (SENOKOT-S) 50-8.6 | mouth twice daily as | | | 16 | | | mg per tablet | needed (take twice | | | | | | | daily as long as you | | | | | | | are taking narcotic | | | | | | | pain medication). | | | | | + + + +---------+ + + | nicotine | Apply 1 patch to | | 0 | 10/25/19 | | | (NICODERM) 21 mg/24 | skin once daily. | | | 16 | | | hr | | | | | | + + + +---------+ + + | ondansetron | Take 1 tablet by | | 0 | 10/25/19 | | | (ZOFRAN) 4 mg tablet | mouth every twelve | | | 16 | | | | hours as needed. | | | | | + + + +---------+ + + | oxyCODONE | Take 1-3 tablets by | | 0 | 10/25/19 | | | (ROXICODONE) 5 mg | mouth every three | | | 16 | | | tablet | hours as needed for | | | | | | | moderate pain. | | | | | + + + +---------+ + + | atorvaSTATin | Take 1 tablet by | 90 | 3 | 07/30/19 | | | (LIPITOR) 20 mg | mouth Daily. | tablet | | 17 | 7 | | tablet | | | | | | + + + +---------+ + + | metoprolol | Take 1 tablet by | 90 | 3 | 07/30/19 | | | succinate (TOPROL | mouth Daily. | tablet | | 17 | 8 | | XL) 25 mg 24 hr | | | | | | | tablet | | | | | | + + + +---------+ + + documented as of this encounter Plan of Treatment Not on filedocumented as of this encounter Procedures + +--------+ + + + | Procedure Name | Priori | Date/Time | Associated Diagnosis | Comments | | | ty | | | | + +--------+ + + + | NM NUCLEAR STRESS | Routin | 08/06/2016 | Precordial pain | Results for this | | TEST (PHARMACOLOGIC | e | 12:11 PM | | procedure are in the | | - VASODILATOR) | | PDT | | results section. | + +--------+ + + + documented in this encounter Results [place] Nuclear Stress Test (Vasodilator) (08/06/2016 12:11 PM PDT) + + | Specimen | + + | | + + + + + | Impressions | Performed At | + + + | 1. Regadenoson EKG is negative. 2. Abnormal Regadenoson | [facility] | | Sestamibi myocardial perfusion study with a very large size, fixed | [facility] | | defect of a severe in severity of the entire anterior, anteroseptal, | [facility] | | mid and distal inferior, inferoseptal, inferolateral and | - IMAGING | | anterolateral. This suggests a multi-vessel coronary artery disease | | | with evidence of a very large size scar of all 3 vessel territories. | | | Left ventricular cavity is markedly dilated. 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 There is a severe global hypokinesis of the left | | | ventricle. Overall, left ventricular systolic function is severely | | | decreased. LVEF by gated SPECT is 16%. Signed by: | | | Lynsey Subramanian MD [facility] 08/06/2016, 12:18 | | + + + + + ----+ | Narrative | Performed At | + + ----+ | | [facility] | | NUCLEAR MEDICINE STRESS TEST REPORT Patient Name: Cielo Larson | [facility] | | Ray Study Date: 08/06/2016 Primary Care Provider: Lance Boyle [facility] | | Mumtaz : 1950 Age: 66 y.o. Gender: | - IMAGING | | female CLINICAL HISTORY/DIAGNOSIS: CAD/ischemic cardiomyopathy | | | REGADENOSON SESTAMIBI STRESS TESTIndication: CAD/ischemic | | | cardiomyopathy Procedure: In the supine position, .4 mg of | | | Regadenoson was infused intravenously over 10 seconds. Blood | | | pressure and EKG were monitored every 1 minute. 5 mL of normal | | | saline was utilized to flush the IV line. Twenty seconds later, 10.2 | | | mCi sestamibi intravenous injection. SPECT myocardial perfusion | | | imaging was acquired with wall motion analysis. Rest imaging was | | | performed using 35.4 mCi Sestamibi intravenous injection. Repeated | | | SPECT myocardial perfusion imaging was acquired with wall motion | | | analysis. Hemodynamics: Heart rate baseline 80 beats per minute, | | | peak 100 beats per minute. Blood pressure baseline 141/81 mmHg, peak | | | 147/85 mmHg. EKG baseline underlying sinus rhythm, anteroseptal [place], | | | age indeterminant. Peak unchanged. Side Effects: None. | | | Arrhythmia: None. Regadenoson Sestamibi Myocardial Perfusion Imaging | | | Result: The Regadenoson Sestamibi tomographic images, reviewed | | | without the attenuation compensation resolution, revealed a very | | | large size, fixed defect of a severe in severity of the entire | | | anterior, anteroseptal, mid and distal inferior, inferoseptal, | | | inferolateral and anterolateral. Abnormality can be seen in short | | | axis, vertical long axis, and horizontal long axis projections | | | comprising approximately 60% of the left ventricular myocardium. The | | | left ventricular cavity is markedly dilated. The rest imaging shows no | | | reversibility of all defects. Gated SPECT reveals a | | | thinning and dyskinesis davon-apical region. There is a severe | | | global hypokinesis of the left ventricle. Overall, left ventricular | | | systolic function is severely decreased. LVEF by gated SPECT is 16 %. | | | | | | | | |Arrhythmia: None. | | | | | |Regadenoson Sestamibi Myocardial Perfusion Imaging Result: | | | The Regadenoson Sestamibi tomographic images, reviewed without the | | |attenuation compensation resolution, revealed a very large size, fixed | | |defect of a severe in severity of the entire anterior, anteroseptal, mid | | |and distal inferior, inferoseptal, inferolateral and anterolateral. | | |Abnormality can be seen in short axis, vertical long axis, and | | |horizontal long axis projections comprising approximately 60% of the left | | |ventricular myocardium. The left ventricular cavity is markedly dilated. | | |The rest imaging shows no reversibility of all defects. | | | | | | Gated SPECT reveals a thinning and dyskinesis davon-apical region. | | |There is a severe global hypokinesis of the left ventricle. Overall, left | | |ventricular systolic function is severely decreased. LVEF by gated SPECT | | |is 16 %. | | | | | + + ----+ + + + + + | Performing | Address | City/State/Zipcode | Phone Number | | Organization | | | | + + + + + | [facility] | [address] | [place] | [phone] | | [facility] | | [address] | | | - IMAGING | | | | + + + + + documented in this encounter Visit Diagnoses + + | Diagnosis | + + | Precordial pain | + + documented in this encounter Administered Medications + +--------+ +--------+------+------+ | Medication Order | MAR | Action | Dose | Rate | Site | | | Action | Date | | | | + +--------+ +--------+------+------+ | regadenoson (LEXISCAN) | Given | 08/07/19 | 0.4 mg | | | | injection 0.4 mg 0.4 mg, | | 17 8:24 | | | | | Intravenous, ONCE PRN, per | | AM PDT | | | | | doctor, Starting Tue08/06/16 at | | | | | | | 0744, For 1 dose, Give IV push | | | | | | | over 10 seconds, then follow | | | | | | | immediately with 5 mL saline | | | | | | | flush., Nuclear Medicine | | | | | | + +--------+ +--------+------+------+ +---+---+ | | | +---+---+ + +-------+ + +---+---+ | technetium TC-99M sestamibi | Given | 08/07/19 | 9 | | | | (CARDIOLITE) injection 9 | | 17 7:44 | -millicu | | | | millicurie 9 -millicurie, | | AM PDT | summer | | | | Intravenous, ONCE PRN, Other, | | | | | | | Starting 08/06/16 at 0744, For | | | | | | | 1 dose, Nuclear Medicine | | | | | | + +-------+ + +---+---+ +---+---+ | | | +---+---+ documented in this encounter"
--- OUTSIDE RECORDS SUMMARY | ~2019-10-22 | XMS | Encounter Summary ---
Demographics + + + | Address | [address] | | | [place] [address] | + + + | Home Phone | | + + + | Preferred Language | Unknown | + + + | Marital Status | | + + + | Orthodox Affiliation | MET | + + + [...] | | + + +---------+ + | rEic Leung | ECON | Unknown | | + + +---------+ + Care Team Providers + +------+ + | Care Human Resources Admin Name | Role | Phone | + +------+ + | No Pcp Per Patient | PCP | Unavailable | + +------+ + Encounter Details +--------+ + + + + | Date | Type | Department | Care Team | Description | +--------+ + + + + | 01/11/ | Documentati | Infectious | Saskia Nicolas MD | | | 2018 | on | [facility] at [facility] | [address] | | | | | [address] | [place] | | | | | [address] Physician's | [place], [place] | | | | | [place], [facility] floor | [address] | | | | | [place], [place] | [phone] | | | | | [address] | | | | | | [phone] | | | +--------+ + + + [...] this encounter Miscellaneous Notes Telephone Encounter - Saskia Nicolas MD - 01/11/2018 3:32 PM PSTPt's labs show good impro vement in inflammatory markers and CT head is negative for abscess. Sending stop orders for 01/16 as scheduled docum ented in this encounter Plan of Treatment Not on filedocumented as of this encounter Visit Diagnoses Not on filedocumented in this encounter"
--- OUTSIDE RECORDS SUMMARY | ~2019-10-22 | XMS | Encounter Summary ---
Demographics + + + | Address | [address] | | | [place] [address] | + + + | Home Phone | | + + + | Preferred Language | Unknown | + + + | Marital Status | | + + + | Caodaism Affiliation | MET | + + + | Race | White | + + + | Ethnic Group | Not or | + + + Author + + + | Author | [facility] | + + + | Organization | [facility] | + + + | [...] Team Providers + +------+ + | Care Radio Repairer Name | Role | Phone | + +------+ + | Anil Baker DO | PCP | | + +------+ + Reason for Visit AUTH/CERT +--------+--------+ + + + + | [...] | | | | | | | [address] | | | | | | | [id number] | | | | | | | [facility] | | | | | | | [place], | | | | | | | [place] [address] | | | | | | | Phone: | | | | | | | [phone] | +--------+--------+ + + + + Encounter Details +--------+ + + + + | Date | Type | Department | Care Team | Description | +--------+ + + + + | 05/13/ | Hospital | [facility] [address] | Paramjit Huber MD | | | 2008 - | Encounter | [address] | [address] | | | | | [id number] [facility] | [place], [place] | | | 05/14/ | | HOSPITAL [place], | [address] | | | 2008 | | [place] [address] | [phone] | | | | | [phone] | | | +--------+ + + + [...] + + + | Blood Pressure | 110/71 | 05/14/2008 11:40 AM | | | | | PDT | | + + + + + | Pulse | 78 | 05/14/2008 11:40 AM | | | | | PDT | | + + + + + | Temperature | 36.8 C (98.2 F) | 05/14/2008 11:40 AM | | | | | PDT | | + + + + + | Respiratory Rate | 18 | 05/14/2008 11:40 AM | | | | | PDT | | + + + + + | Oxygen Saturation | 98% | 05/14/2008 11:40 AM | | | | | PDT | | + + + + + | Inhaled Oxygen | - | - | | | Concentration | | | | + + + + + | Weight | 55.4 kg (122 lb 2.2 | 05/13/2008 4:30 PM | | | | oz) | PDT | | + + + + + | Height | - | - | | + + + + + | Body Mass Index | 24.67 | 04/11/2008 2:05 PM | | | | | PST | | + + + + + documented in this encounter Discharge Summaries Noe, Faculty - 05/14/2008 12:36 PM Alli Mendosa MD - 05/14/2008 10:57 AM Екатерина campbell of this note might be different from the original. INPATIENT PHYSICIAN DISCHARGE SUMMARY Author: ALLI BOWIE MD Attending Physician: Cecile PCP: Anil Baker DO Admission Date: 05/13/2008 Discharge Date: 05/14/08 Principal Final Diagnoses: Headaches, rule out shunt infection Additional Diagnoses: Status post aneurysm clipping (R side craniotomy) in September 2007 who developed hydrocephalu s and received VPS 04/12/08. Principal Procedure: SALESPERSON NEW CARS shunt tap Additional Procedures: Observation Hospital Course: Cielo Bell is a 58 yof s/p SAH and aneurysm clipping. S/p R VPS placement on 04/12/08. H ad been doing relatively well and presented to the clinic on April 29 for concern about redne ss and itching over the incision of the VPS. No discharge from the incision no dehiscence. T he patient was sent to the ED for ZULUAGA and concern of wound and shunt infection. Shunt tap at that time was negative on gram stain so she was sent home on abx, but culture grew MRSA. She was seen in clinic today, again with ZULUAGA, and she was admitted for shunt tap. CSF gram stain negative and fluid without signs of infection. Patient without postural headaches. Will dis charge home today with plan for follow in two weeks with Dr. Huber in clinic. Medications: START taking these medications hydrocodone-acetaminophen (VICODIN) 5-500 mg Oral Tablet Take 1 Tab by mouth every four hours as needed Not to exceed 8 tablets per any 24 hour per iod. (Not to exceed 4000 mg of acetaminophen from all products per 24 hour period.) Qty: 60 Refills: 0 CONTINUE these medications which have NOT CHANGED pravastatin 20 mg Oral Tablet take 2 tablets (40 mg) by oral route once daily Qty: 30 Refills: 1 senna-docusate 8.6-50 mg Oral Tablet Take 1 Tab by mouth two times daily. Qty: 120 Refills: 0 Outstanding labs/studies: None Diet: Regular Activity: No limitations Follow Up: Two weeks with Dr. Huber Disposition: Good Condition: Good Discharging Physician: ALLI BOWIE MD Attending Physician: Paramjit Huber MD documented in this encou nter Discharge Instructions Instructions Verna Costa - 05/14/2008Formatting of this note might be different from the or iginal. NEUROSURGICAL DISCHARGE AND INTERDISCIPLINARY INSTRUCTIONS Admission Date: 05/13/2008 Discharge Date: 05/14/2008 Service: Neurological Surgery Principal Final Diagnosis: Headaches, rule out shunt infection Additional Diagnoses: Status post aneurysm clipping (R side craniotomy) in September 2007 who developed hydrocephalu s and received VPS 04/12/08. Principal Procedure: SALESPERSON NEW CARS shunt tap Additional Procedures: Observation Reason for Admission, Significant Findings, Treatment, and Complications Brief Hospital Course: Cielo Bell is a 58 yof s/p SAH and aneurysm clipping. S/p R VPS placement on 04/12/08. H ad been doing relatively well and presented to the clinic on April 29 for concern about redne ss and itching over the incision of the VPS. No discharge from the incision no dehiscence. T he patient was sent to the ED for ZULUAGA and concern of wound and shunt infection. Shunt tap at that time was negative on gram stain so she was sent home on abx, but culture grew MRSA. She was seen in clinic today, again with ZULUAGA, and she was admitted for shunt tap. CSF gram stain negative and fluid without signs of infection. Patient without postural headaches. Will dis charge home today with plan for follow in two weeks with Dr. Huber in clinic. Diet: regular Activity: No specific limitations Special Instructions: None Call: Please call and ask for the Neurosurgery resident distribution coordinator if you have any of the following: Difficulty breathing or unusual shortness of breath Excessive bleeding, drainage at the operative site Fevers, chills, increased pain that is not relieved by pain medications Persistent nausea or vomiting Other SPECIFIC concerns, such as: Pain, numbness, loss of bowel or bladder function or we akness of the lower extremities. Follow Up Appointments: PCP:Anil Baker DO When: Please follow-up with your PCP as soon as possible to review ne w medications and recent interventions . Neurosurgery: Please attend your follow-up appointment with Dr. Huber at the [facility] on the 8th floor of the [facility] and [facility]: Please call to make or confirm your appointment. Follow Up Tests: None Condition On Discharge: Good Vital Signs at discharge as appropriate: BP: 104/67 mmHg (05/14/08 7:52 AM) Pulse: 84 (05/14/08 7:52 AM) Resp: 18 (05/14/08 7:52 AM) Wt - Scale: 55.4 kg (122 lb 2.2 oz) (05/13/08 4:30 PM) Discharge Physical Examination: General: No apparent distress. Resting comfortably. HEENT: Atraumatic, normocephalic, extraocular muscles intact, pupils equal round and react chon to light with appropriate accomodation. Pulmonary: Clear to ausculation bilaterally, no rales, crackles or wheezes. Cardiac: Regular rate and rhythm no obvious murmurs, rubs or gallops. Abdomen: No obvious scars, non-tender, non-distended, normoactive bowel sounds. Extremities: Warm and well perfused. Neurological: Alert and oriented to person, place, time, and reason for hospitalization. Cranial nerves are intact upon close examination, there is no nystagmus, 5/5 muscle strengt h in bilateral upper extremitiy flexors and extensors as well as transcripter and intrinsic muscles of the hand, 5/5 muscle strength in bilateral lower extremity flexors and extensors includin g dorsiflexion and plantar function. Sensate to light touch on lateral feet and between the re first toe interspace. Sensate to light touch throughout the rest of the body. Medications: START taking these medications hydrocodone-acetaminophen (VICODIN) 5-500 mg Oral Tablet Take 1 Tab by mouth every four hours as needed Not to exceed 8 tablets per any 24 hour per iod. (Not to exceed 4000 mg of acetaminophen from all products per 24 hour period.) Qty: 60 Refills: 0 CONTINUE these medications which have NOT CHANGED pravastatin 20 mg Oral Tablet take 2 tablets (40 mg) by oral route once daily Qty: 30 Refills: 1 senna-docusate 8.6-50 mg Oral Tablet Take 1 Tab by mouth two times daily. Qty: 120 Refills: 0 Discharge Patient To: Home Does patient have a planned readmission: No Discharge Summary Completed?: Yes. 05/14/2008 Discharging Provider: ALLI BOWIE MD Date Completed: 05/14/2008 Time Completed: 10:27 AM Discharging Attending: MD ALLI Woods MD [address] [address] [address] INPATIENT NURSE ORDER FOR DISCHARGE AND INTERDISCIPLINARY INSTRUCTIONS DISCHARGE DATE: 05/14/2008 PATIENT EDUCATION: Patient given the following printed education materials Review with patient/family: Understanding of disease/injury/surgical repair Yes Signs/symptoms that they should report Yes Understanding of medications and side effects Yes Activity and diet instructions Yes Follow-up appointments Yes Any concerns/fears N/A Smoking Cessation Counseling/Information was given: N/A Additional Instructions: (ex: daily weights, wound care, tube feeding, trach care, CBG jake toring etc.) Personal Effects/Medications: None Discharged Via: Ambulatory Mode of Transportation: Car Accompanied by: Family/Responsible [employer] Transport Company Name: (when applicable) Phone #: Discharge Nurse: Verna Costa Date: 05/14/2008 Discharge Time: 12:19 PM documented in this encounter Progress Notes Benedicto Maher MD - 05/14/2008 10:03 AM PDT Neurosurgery Progress Note Author: BENEDICTO MAHER MD Attending: Paramjit Huber MD HPI/Interval Hx: No acute events. Has ambulated to the bathroom. Physical Exam: Last Vitals: BP 104/67 | Pulse 84 | Temp 35.8 C (96.4 F) | Resp 18 | Wt 55.4 kg (122 lb 2.2 oz) | SpO2 95% 24 Hour Vital Min/Max: Systolic (24hrs), Av mmHg, Min:104 mmHg, Max:126 mmHg Diastolic (24hrs), Av mmHg, Min:65 mmHg, Max:75 mmHg Pulse Av.2 Min: 76 Max: 102 Temp Av.7 C (96.3 F) Min: 35.3 C (95.5 F) Max: 35.9 C (96.6 F) Resp Av.8 Min: 16 Max: 20 SpO2 Av.0 % Min: 95 % Max: 98 % Intake/Output Summary (Last 24 hours) at 05/14 1003 Last data filed at 05/14 0800 Gross per 24 hour Intake 620 ml Output 500 ml Net 120 ml CBC with diff last 72 hours (or 3 results) Recent Labs Basename 05/14/08 0742 05/13/08 1820 WBC 7.5 8.3 HB 11.4* 12.6 HCT 33.1* 37.7 PLT 306 328 Chemistries: Last 72 Hours (or 3 results): Recent Labs Basename 05/14/08 0742 05/13/08 1820 NA 142 144* K 4.3 3.9 CL 111* 106 BICARB 25 29 BUN 13 10 CR 0.89 0.79 GLU 90 92 CA 8.5* 9.2 CSF from shunt tap 05/13/08: G78, P100, W3, R43, gram stain no organisms, no growht so far. Exam: Gen: resting comfortably, in NAD Neuro: FC briskly, EOMI, V1-3 sensation intact bilat, face symmetric, hearing intact to rub bilat, palatal rise symmetric, head rotation strength 5/5 bilat, tongue ML Strength 5/5 throughout SILT throughout Incisions c/d/i Assessment and Plan: 58yo F s/p aneurysm clipping (R side craniotomy) in previously who developed hydrocephalus and received VPS 04/12/08. Admitted for shunt tap for concern of shunt infection. - CSF clear - if remains stable will d/c with f/u in clinic. No need for further abx. Benedicto Maher MD Addendum: Patient ambulated around unit and was upright, both sitting and standing, and exp erienced no postural headaches. She will be discharged to home with her spouse today. Benedicto Maher MD documented in this encounter H&P Notes Benedicto Maher MD - 05/13/2008 4:40 PM PDT NEUROSURGERY HISTORY AND PHYSICAL NOTE Author: ALLI BOWIE MD and BENEDICTO MAHER MD Attending Physician: Paramjit Huber MD CC: ZULUAGA, concern for shunt infection HPI/Interval Update: Cielo Bell is a 58 yof s/p SAH and aneurysm clipping. S/p R VPS pl acement on 04/12/08. Had been doing relatively well and presented to the clinic on April 29 fo r concern about redness and itching over the incision of the VPS. No discharge from the inci gabriel no dehiscence. The patient was sent to the ED for ZULUAGA and concern of wound and shunt inf ection. Shunt tap at that time was negative on gram stain so she was sent home on abx, but c aurelia grew MRSA. She was seen in clinic today, again with ZULUAGA, and she was admitted for shun t tap, and depending on results, possible shunt removal, and ID consult. Past Medical History Diagnosis Date GERD (Gastroesophageal Reflux Disease) HTN Nicotine Addiction COPD Otitis Media recent abx preadmit Chronic Pain ROS: Constitutional - Denies fevers, chills. Endorses fatigue. Skin - Negative except Breast - Negative except Eyes - Negative except Ears/Nose/Mouth/Throat - Negative except Cardiovascular - Denies chest pain or palpitations Respiratory - Denies cought, shortness of breath, or pleuritic chest pain Gastrointestinal - Endorses nausea and mild abdominal pain at site of shunt. Denies vomitin g, diarrhea or constipation Genitourinary - Denies dysuria Musculoskeletal - Negative except Neurologic/Psychiatric - Negative except Allergic/Immunologic - Negative except Hematologic/Lymphatic - Negative except Endocrine - Negative except All other ROS negative. Prescriptions prior to admission Medication Sig Dispense Refill pravastatin 20 mg Oral Tablet take 2 tablets (40 mg) by oral route once daily 30 1 senna-docusate 8.6-50 mg Oral Tablet Take 1 Tab by mouth two times daily. 120 0 Allergies Allergen Reactions Cipro (Ciprofloxacin) Sulfa (Sulfonamides) Codeine Hcl History Social History Marital Status: Spouse Name: N/A Number of Children: N/A Years of Education: N/A Occupational History Not on file. Social History Main Topics Tobacco Use: Quit -- 1.5 packs/day for 40 years Quit date: 10/18/2007 Alcohol Use: No Drug Use: No Sexually Active: No Other Topics Concern Not on file Social History Narrative No narrative on file No family history on file. Physical Exam: BP 126/75 | Pulse 88 | Temp 35.3 C (95.5 F) | Resp 20 | SpO2 98% Systolic (24hrs), Av mmHg, Min:126 mmHg, Max:126 mmHg Diastolic (24hrs), Av mmHg, Min:75 mmHg, Max:75 mmHg Pulse Av Min: 88 Max: 88 Temp Av.3 C (95.5 F) Min: 35.3 C (95.5 F) Max: 35.3 C (95.5 F) Resp Av Min: 20 Max: 20 SpO2 Av % Min: 98 % Max: 98 % EXAM: General Appearance: in NAD HEENT: atraumatic. Evidence of previous R craniotomy Respiratory: breathing comfortably, no respiratory distress Neurologic: Awake , alert, oriented x 3. Face symmetirc, PERRL B 3-2mm, EOMI No diconjugate gaze. Visual pete full. Tongue ML, palate symmetric Motor Bi Tri Delt Spotter Wfl WEx Hfl Hex Lfl Dajuan Dfl Pfl EHL R 5 5 5 5 5 5 5 5 5 5 5 5 5 L 5 5 5 5 5 5 5 5 5 5 5 5 5 Sensory: intact to light touch in all ext. Proprioception intact No dysmetria, no pastpointing. DTR: 2+ in all ext Toes downgoing Incisions: c/d/i over R scalp shunt site, base of R neck (with escar over intact 2cm incisi on), and RUQ abd incision (evidence of pin-point healed portion of incision). Assessment and Plan: 58yo F s/p aneurysm clipping (R side craniotomy) in previously who developed hydrocephalus and received VPS 04/12/08. Visited ED for concern of shunt infection. Tap was negative so she was sent home on abx, but culture grew out MRSA. Presented to clinic today and admitted for shunt tap and, depending on results, possible removal of shunt, and consult ID. Will make NPO after [place] for possible shunt removal. Benedicto Maher MD documented in this encou nter Miscellaneous Notes Plan of Care - Nisreen Crain OT - 05/14/2008 1:20 PM PDTOccupational Therapy Contact As per PT note, no acute OT needs are indicated. [facility], transferring on/off toilet, and is at baseline for ADLs. No OT eval intitiated. NISREEN CRAIN OT [facility] [address] [id number] [place] [address] can - Jared Liuul ty - 05/14/2008 12:36 PM PDT Scan - Noe, Faculty - 05/14/2008 12:36 PM PDT Plan of Care - Valerie Bowden - 05/14/2008 10:12 AM PDTPT Note: Chart reviewed. Spoke with guillaume kenyetta nd , patient currently without mobility deficits, both feel [facility] and she will resune outpatient services when she gets home. Will sign off . [place] [id number] signed by Valerie Bowden at 05/14/2008 10:13 AM PDTPlan of Care - Sonali Louis - 05/14/2008 7:47 AM PDTProblem: Case Managment Goals Goal: Discharge Needs Met 58 yr old female admitted s/p 05/10 SALESPERSON NEW CARS shunt placement for s/s possible shunt/wound infectio ns. Awaiting results of CSF cx, plan for possible [place] for shunt removal/IV abx. [place] lives [place]. Case mgt to follow for dc needs. [id number] documented in this encounter Plan of Treatment Not on filedocumented as of this encounter Procedures + +--------+ + + + | Procedure Name | Priori | Date/Time | Associated Diagnosis | Comments | | | ty | | | | + +--------+ + + + | BASIC METABOLIC SET | Routin | 05/14/2008 | | Results for this | | (NA, K, CL, TCO2, | e | 7:42 AM | | procedure are in the | | BUN, CR, GLU, CA) | | PDT | | results section. | + +--------+ + + + | CBC ONLY | Routin | 05/14/2008 | | Results for this | | | e | 7:42 AM | | procedure are in the | | | | PDT | | results section. | + +--------+ + + + | BASIC METABOLIC SET | Routin | 05/13/2008 | | Results for this | | (NA, K, CL, TCO2, | e | 6:20 PM | | procedure are in the | | BUN, CR, GLU, CA) | | PDT | | results section. | + +--------+ + + + | CBC ONLY | Routin | 05/13/2008 | | Results for this | | | e | 6:20 PM | | procedure are in the | | | | PDT | | results section. | + +--------+ + + + | CSF INFO PANEL | Routin | 05/13/2008 | | Results for this | | | e | 5:01 PM | | procedure are in the | | | | PDT | | results section. | + +--------+ + + + | CSF INFO PANEL | Routin | 05/13/2008 | | Results for this | | | e | 5:01 PM | | procedure are in the | | | | PDT | | results section. | + +--------+ + + + | CSF INFO PANEL | Routin | 05/13/2008 | | Results for this | | | e | 5:01 PM | | procedure are in the | | | | PDT | | results section. | + +--------+ + + + | SPECIMEN ROUTING | Routin | 05/13/2008 | | Results for this | | | e | 5:01 PM | | procedure are in the | | | | PDT | | results section. | + +--------+ + + + | GLUCOSE, CSF | Routin | 05/13/2008 | | Results for this | | | e | 5:01 PM | | procedure are in the | | | | PDT | | results section. | + +--------+ + + + | GLUCOSE, CSF | Routin | 05/13/2008 | | Results for this | | | e | 5:01 PM | | procedure are in the | | | | PDT | | results section. | + +--------+ + + + | CELL COUNT DIFF, CSF | Routin | 05/13/2008 | | Results for this | | | e | 5:01 PM | | procedure are in the | | | | PDT | | results section. | + +--------+ + + + | CULTURE, CSF BACTI | Routin | 05/13/2008 | | Results for this | | | e | 5:01 PM | | procedure are in the | | | | PDT | | results section. | + +--------+ + + + | GRAM SMEAR ONLY, | Routin | 05/13/2008 | | Results for this | | STAT | e | 5:01 PM | | procedure are in the | | | | PDT | | results section. | + +--------+ + + + | PROTEIN, CSF | Routin | 05/13/2008 | | Results for this | | | e | 5:01 PM | | procedure are in the | | | | PDT | | results section. | + +--------+ + + + | PROTEIN, CSF | Routin | 05/13/2008 | | Results for this | | | e | 5:01 PM | | procedure are in the | | | | PDT | | results section. | + +--------+ + + + documented in this encounter Results CBC ONLY (05/14/2008 7:42 AM PDT) + + + + + + | Component | Value | Ref Range | Performed | Pathologist | | | | | At | Signature | + + + + + + | WHITE CELL | 7.5 | 4.4 - 11.0 K/cu | [facility] | | | COUNT | | mm | DEPARTMENT | | | | | | OF | | | | | | PATHOLOGY | | + + + + + + | RED CELL | 3.57 (L) | 4.00 - 5.20 | [facility] | | | COUNT | | M/cu mm | DEPARTMENT | | | | | | OF | | | | | | PATHOLOGY | | + + + + + + | HEMOGLOBIN | 11.4 (L) | 12.0 - 16.0 | [facility] | | | | | g/dL | DEPARTMENT | | | | | | OF | | | | | | PATHOLOGY | | + + + + + + | HEMATOCRIT | 33.1 (L) | 36.0 - 46.0 % | [facility] | | | | | | DEPARTMENT | | | | | | OF | | | | | | PATHOLOGY | | + + + + + + | MCV | 92.6 | 80.0 - 96.0 fL | [facility] | | | | | | DEPARTMENT | | | | | | OF | | | | | | PATHOLOGY | | + + + + + + | MCHC | 34.3 | 33.4 - 35.5 | [facility] | | | | | g/dL | DEPARTMENT | | | | | | OF | | | | | | PATHOLOGY | | + + + + + + | RDW | 15.2 (H) | 11.5 - 15.0 % | [facility] | | | | | | DEPARTMENT | | | | | | OF | | | | | | PATHOLOGY | | + + + + + + | PLATELET | 306 | 150 - 400 K/cu | [facility] | | | COUNT | | mm | DEPARTMENT | | | | | | OF | | | | | | PATHOLOGY | | + + + + + + + + | Specimen | + + | Blood - Blood | + + + + + + + | Performing | Address | City/State/Zipcode | Phone Number | | Organization | | | | + + + + + | [facility] | [address] [facility] | [place] [address] | | | PATHOLOGY | [address] | | | + + + + + | [facility] | [address] [place] [address] | [place] [address] | | | PATHOLOGY | [address] | | | + + + + + BASIC METABOLIC SET (NA, K, CL, TCO2, BUN, CR, GLU, CA) (05/14/2008 7:42 AM PDT) + +---------+ + + + | Component | Value | Ref Range | Performed | Pathologist | | | | | At | Signature | + +---------+ + + + | GLUCOSE, | 90 | 60 - 99 mg/dL | [facility] | | | PLASMA | | | DEPARTMENT | | | (LAB) | | | OF | | | | | | PATHOLOGY | | + +---------+ + + + | BUN, PLASMA | 13 | 6 - 20 mg/dL | [facility] | | | (LAB) | | | DEPARTMENT | | | | | | OF | | | | | | PATHOLOGY | | + +---------+ + + + | CREATININE | 0.89 | 0.60 - 1.10 | [facility] | | | PLASMA | | mg/dL | DEPARTMENT | | | (LAB) | | | OF | | | | | | PATHOLOGY | | + +---------+ + + + | SODIUM, | 142 | 134 - 143 | [facility] | | | PLASMA | | mmol/L | DEPARTMENT | | | (LAB) | | | OF | | | | | | PATHOLOGY | | + +---------+ + + + | POTASSIUM, | 4.3 | 3.4 - 5.0 | [facility] | | | PLASMA | | mmol/L | DEPARTMENT | | | (LAB) | | | OF | | | | | | PATHOLOGY | | + +---------+ + + + | CHLORIDE, | 111 (H) | 97 - 108 mmol/L | [facility] | | | PLASMA | | | DEPARTMENT | | | (LAB) | | | OF | | | | | | PATHOLOGY | | + +---------+ + + + | TOTAL CO2, | 25 | 23 - 31 mmol/L | [facility] | | | PLASMA | | | DEPARTMENT | | | (LAB) | | | OF | | | | | | PATHOLOGY | | + +---------+ + + + | CALCIUM, | 8.5 (L) | 8.6 - 10.2 | [facility] | | | PLASMA | | mg/dL | DEPARTMENT | | | (LAB) | | | OF | | | | | | PATHOLOGY | | + +---------+ + + + + + | Specimen | + + | Blood - Blood | + + + + + + + | Performing | Address | City/State/Zipcode | Phone Number | | Organization | | | | + + + + + | [facility] | [address] [place] [address] | [place] [address] | | | PATHOLOGY | [address] | | | + + + + + | [facility] | [address] [place] [address] [address] | [place] [address] | | | PATHOLOGY | [address] | | | + + + + + CBC ONLY (05/13/2008 6:20 PM PDT) + +-------+ + + + | Component | Value | Ref Range | Performed | Pathologist | | | | | At | Signature | + +-------+ + + + | WHITE CELL | 8.3 | 4.4 - 11.0 K/cu | [facility] | | | COUNT | | mm | DEPARTMENT | | | | | | OF | | | | | | PATHOLOGY | | + +-------+ + + + | RED CELL | 4.05 | 4.00 - 5.20 | [facility] | | | COUNT | | M/cu mm | DEPARTMENT | | | | | | OF | | | | | | PATHOLOGY | | + +-------+ + + + | HEMOGLOBIN | 12.6 | 12.0 - 16.0 | [facility] | | | | | g/dL | DEPARTMENT | | | | | | OF | | | | | | PATHOLOGY | | + +-------+ + + + | HEMATOCRIT | 37.7 | 36.0 - 46.0 % | [facility] | | | | | | DEPARTMENT | | | | | | OF | | | | | | PATHOLOGY | | + +-------+ + + + | MCV | 93.0 | 80.0 - 96.0 fL | [facility] | | | | | | DEPARTMENT | | | | | | OF | | | | | | PATHOLOGY | | + +-------+ + + + | MCHC | 33.5 | 33.4 - 35.5 | [facility] | | | | | g/dL | DEPARTMENT | | | | | | OF | | | | | | PATHOLOGY | | + +-------+ + + + | RDW | 14.6 | 11.5 - 15.0 % | [facility] | | | | | | DEPARTMENT | | | | | | OF | | | | | | PATHOLOGY | | + +-------+ + + + | PLATELET | 328 | 150 - 400 K/cu | [facility] | | | COUNT | | mm | DEPARTMENT | | | | | | OF | | | | | | PATHOLOGY | | + +-------+ + + + + + | Specimen | + + | Blood - Blood | + + + + + + + | Performing | Address | City/State/Zipcode | Phone Number | | Organization | | | | + + + + + | [facility] DEPARTMENT OF | [address] | [place] [address] | | | PATHOLOGY | [address] | | | + + + + + | [facility] DEPARTMENT OF | [address] | [place] [address] | | | PATHOLOGY | [address] | | | + + + + + BASIC METABOLIC SET (NA, K, CL, TCO2, BUN, CR, GLU, CA) (05/13/2008 6:20 PM PDT) + +---------+ + + + | Component | Value | Ref Range | Performed | Pathologist | | | | | At | Signature | + +---------+ + + + | GLUCOSE, | 92 | 60 - 99 mg/dL | [facility] | | | PLASMA | | | DEPARTMENT | | | (LAB) | | | OF | | | | | | PATHOLOGY | | + +---------+ + + + | BUN, PLASMA | 10 | 6 - 20 mg/dL | [facility] | | | (LAB) | | | DEPARTMENT | | | | | | OF | | | | | | PATHOLOGY | | + +---------+ + + + | CREATININE | 0.79 | 0.60 - 1.10 | [facility] | | | PLASMA | | mg/dL | DEPARTMENT | | | (LAB) | | | OF | | | | | | PATHOLOGY | | + +---------+ + + + | SODIUM, | 144 (H) | 134 - 143 | [facility] | | | PLASMA | | mmol/L | DEPARTMENT | | | (LAB) | | | OF | | | | | | PATHOLOGY | | + +---------+ + + + | POTASSIUM, | 3.9 | 3.4 - 5.0 | [facility] | | | PLASMA | | mmol/L | DEPARTMENT | | | (LAB) | | | OF | | | | | | PATHOLOGY | | + +---------+ + + + | CHLORIDE, | 106 | 97 - 108 mmol/L | [facility] | | | PLASMA | | | DEPARTMENT | | | (LAB) | | | OF | | | | | | PATHOLOGY | | + +---------+ + + + | TOTAL CO2, | 29 | 23 - 31 mmol/L | [facility] | | | PLASMA | | | DEPARTMENT | | | (LAB) | | | OF | | | | | | PATHOLOGY | | + +---------+ + + + | CALCIUM, | 9.2 | 8.6 - 10.2 | [facility] | | | PLASMA | | mg/dL | DEPARTMENT | | | (LAB) | | | OF | | | | | | PATHOLOGY | | + +---------+ + + + + + | Specimen | + + | Blood - Blood | + + + + + + + | Performing | Address | City/State/Zipcode | Phone Number | | Organization | | | | + + + + + | [facility] DEPARTMENT OF | [address] | [place] [address] | | | PATHOLOGY | [address] | | | + + + + + | [facility] DEPARTMENT OF | [address] | [place], [place] [address] | | | PATHOLOGY | [address] | | | + + + + + GRAM SMEAR ONLY, STAT (05/13/2008 5:01 PM PDT) + + + + + + | Component | Value | Ref Range | Performed | Pathologist | | | | | At | Signature | + + + + + + | GRAM SMEAR | Few White blood cells | | [facility] | | | ONLY-[facility] | presentNo organisms | | DEPARTMENT | | | | seen. | | OF | | | | | | PATHOLOGY | | + + + + + + | SMEAR | Gram Smear by cytospin | | [facility] | | | PREPARATION | | | DEPARTMENT | | | | | | OF | | | | | | PATHOLOGY | | + + + + + + | SOURCE BODY | CSF | | [facility] | | | SITE | | | DEPARTMENT | | | | | | OF | | | | | | PATHOLOGY | | + + + + + + + + | Specimen | + + | | + + + + + + + | Performing | Address | City/State/Zipcode | Phone Number | | Organization | | | | + + + + + | [facility] DEPARTMENT OF | [address] | [place] [address] | | | PATHOLOGY | [address] | | | + + + + + | [facility] DEPARTMENT OF | [address] [facility] | [place] [address] | | | PATHOLOGY | [address] | | | + + + + + SPECIMEN ROUTING (05/13/2008 5:01 PM PDT) + + + + + + | Component | Value | Ref Range | Performed | Pathologist | | | | | At | Signature | + + + + + + | SAMPLE | CSF | | [facility] | | | TYPE-ROUTIN | | | DEPARTMENT | | | G | | | OF | | | | | | PATHOLOGY | | + + + + + + | TEST | Hold and Freeze | | [facility] | | | REQUESTED | one vial with 2 mLS | | DEPARTMENT | | | | | | OF | | | | | | PATHOLOGY | | + + + + + + | SENT TO | [facility] | | [facility] | | | | Receiving and | | DEPARTMENT | | | | Processing:Ext [phone] | | OF | | | | | | PATHOLOGY | | + + + + + + + + | Specimen | + + | | + + + + + + + | Performing | Address | City/State/Zipcode | Phone Number | | Organization | | | | + + + + + | [facility] DEPARTMENT OF | [address] | [place] [address] | | | PATHOLOGY | [address] | | | + + + + + | [facility] DEPARTMENT OF | [address] | [place] [address] | | | PATHOLOGY | [address] | | | + + + + + GLUCOSE, CSF (05/13/2008 5:01 PM PDT) + +--------+ + + + | Component | Value | Ref Range | Performed | Pathologist | | | | | At | Signature | + +--------+ + + + | GLUCOSE CSF | 78 (H) | 40 - 70 mg/dL | [facility] | | | | | | DEPARTMENT | | | | | | OF | | | | | | PATHOLOGY | | + +--------+ + + + + + | Specimen | + + | | + + + + + + + | Performing | Address | City/State/Zipcode | Phone Number | | Organization | | | | + + + + + | [facility] DEPARTMENT OF | [address] | [place] [address] | | | PATHOLOGY | [address] | | | + + + + + | [facility] DEPARTMENT OF | [address] | [place] [address] | | | PATHOLOGY | [address] | | | + + + + + PROTEIN, CSF (05/13/2008 5:01 PM PDT) + +---------+ + + + | Component | Value | Ref Range | Performed | Pathologist | | | | | At | Signature | + +---------+ + + + | TOTAL | 100 (H) | 15 - 45 mg/dL | [facility] | | | PROTEIN CSF | | | DEPARTMENT | | | | | | OF | | | | | | PATHOLOGY | | + +---------+ + + + + + | Specimen | + + | | + + + + + + + | Performing | Address | City/State/Zipcode | Phone Number | | Organization | | | | + + + + + | [facility] DEPARTMENT OF | [address] | [place] [address] | | | PATHOLOGY | [address] | | | + + + + + | [facility] DEPARTMENT OF | [address] | [place] [address] | | | PATHOLOGY | [address] | | | + + + + + CSF INFO PANEL (05/13/2008 5:01 PM PDT) + + + + + + | Component | Value | Ref Range | Performed | Pathologist | | | | | At | Signature | + + + + + + | CSF COLOR | Colorless | Colorless | [facility] | | | | | | DEPARTMENT | | | | | | OF | | | | | | PATHOLOGY | | + + + + + + | CSF | Clear | Clear | [facility] | | | APPEARANCE | | | DEPARTMENT | | | | | | OF | | | | | | PATHOLOGY | | + + + + + + | CSF TUBE | 1 Sent | | [facility] | | | NUMBER | | | DEPARTMENT | | | | | | OF | | | | | | PATHOLOGY | | + + + + + + + + | Specimen | + + | | + + + + + + + | Performing | Address | City/State/Zipcode | Phone Number | | Organization | | | | + + + + + | [facility] DEPARTMENT OF | [address] | [place] [address] | | | PATHOLOGY | [address] | | | + + + + + | [facility] DEPARTMENT | [address] | [place] [address] | | | PATHOLOGY | [address] | | | + + + + + CSF INFO PANEL (05/13/2008 5:01 PM PDT) + + + + + + | Component | Value | Ref Range | Performed | Pathologist | | | | | At | Signature | + + + + + + | CSF | Combined. | Clear | [facility] | | | APPEARANCE | | | DEPARTMENT | | | | | | OF | | | | | | PATHOLOGY | | + + + + + + | CSF COLOR | Combined. | Colorless | [facility] | | | | | | DEPARTMENT | | | | | | OF | | | | | | PATHOLOGY | | + + + + + + | CSF TUBE | Combined. | | [facility] | | | NUMBER | | | DEPARTMENT | | | | | | OF | | | | | | PATHOLOGY | | + + + + + + + + | Specimen | + + | | + + + + + + + | Performing | Address | City/State/Zipcode | Phone Number | | Organization | | | | + + + + + | [facility] DEPARTMENT OF | [address] | [place] [address] | | | PATHOLOGY | [address] | | | + + + + + | [facility] DEPARTMENT OF | [address] | [place] [address] | | | PATHOLOGY | [address] | | | + + + + + CSF INFO PANEL (05/13/2008 5:01 PM PDT) + + + + + + | Component | Value | Ref Range | Performed | Pathologist | | | | | At | Signature | + + + + + + | CSF | Combined. | Clear | [facility] | | | APPEARANCE | | | DEPARTMENT | | | | | | OF | | | | | | PATHOLOGY | | + + + + + + | CSF COLOR | Combined. | Colorless | [facility] | | | | | | DEPARTMENT | | | | | | OF | | | | | | PATHOLOGY | | + + + + + + | CSF TUBE | Combined. | | [facility] | | | NUMBER | | | DEPARTMENT | | | | | | OF | | | | | | PATHOLOGY | | + + + + + + + + | Specimen | + + | | + + + + + + + | Performing | Address | City/State/Zipcode | Phone Number | | Organization | | | | + + + + + | [facility] DEPARTMENT OF | [address] | [place] [address] | | | PATHOLOGY | [address] | | | + + + + + | [facility] DEPARTMENT OF | [address] | [place] [address] | | | PATHOLOGY | [address] | | | + + + + + CELL COUNT DIFF, CSF (05/13/2008 5:01 PM PDT) + +--------+ + + + | Component | Value | Ref Range | Performed | Pathologist | | | | | At | Signature | + +--------+ + + + | CSF WBC | 3 | <6 /cu mm | [facility] | | | | | | DEPARTMENT | | | | | | OF | | | | | | PATHOLOGY | | + +--------+ + + + | CSF RBC | 43 | /cu mm | [facility] | | | | | | DEPARTMENT | | | | | | OF | | | | | | PATHOLOGY | | + +--------+ + + + | DIFFERENTIA | 100 | | [facility] | | | L CSF | | | DEPARTMENT | | | | | | OF | | | | | | PATHOLOGY | | + +--------+ + + + | LYMPHOCYTES | 81 (H) | 40 - 80 % | [facility] | | | (CSF) | | | DEPARTMENT | | | | | | OF | | | | | | PATHOLOGY | | + +--------+ + + + | MONOCYTES(C | 19 | 15 - 45 % | [facility] | | | SF) | | | DEPARTMENT | | | | | | OF | | | | | | PATHOLOGY | | + +--------+ + + + + + | Specimen | + + | Cerebrospinal fluid | + + + + + + + | Performing | Address | City/State/Zipcode | Phone Number | | Organization | | | | + + + + + | [facility] DEPARTMENT OF | [address] | [place] [address] | | | PATHOLOGY | [address] | | | + + + + + | [facility] DEPARTMENT OF | [address] | [place] [address] | | | PATHOLOGY | [address] | | | + + + + + PROTEIN, CSF (05/13/2008 5:01 PM PDT) + + + + + + | Component | Value | Ref Range | Performed | Pathologist | | | | | At | Signature | + + + + + + | TOTAL | Combined. | mg/dL | [facility] | | | PROTEIN CSF | | | DEPARTMENT | | | | | | OF | | | | | | PATHOLOGY | | + + + + + + + + | Specimen | + + | Cerebrospinal fluid | + + + + + + + | Performing | Address | City/State/Zipcode | Phone Number | | Organization | | | | + + + + + | [facility] | [facility] | [place] [address] | | | PATHOLOGY | [address] | | | + + + + + | [facility] DEPARTMENT OF | [facility] | [place] [address] | | | PATHOLOGY | [address] | | | + + + + + GLUCOSE, CSF (05/13/2008 5:01 PM PDT) + + + + + + | Component | Value | Ref Range | Performed | Pathologist | | | | | At | Signature | + + + + + + | GLUCOSE CSF | Combined. | mg/dL | [facility] | | | | | | DEPARTMENT | | | | | | OF | | | | | | PATHOLOGY | | + + + + + + + + | Specimen | + + | Cerebrospinal fluid | + + + + + + + | Performing | Address | City/State/Zipcode | Phone Number | | Organization | | | | + + + + + | [facility] | [address] [facility] | [place] [address] | | | PATHOLOGY | [address] | | | + + + + + | [facility] | [facility] [facility] | [place] [address] | | | PATHOLOGY | [address] | | | + + + + + CULTURE, CSF BACTI (05/13/2008 5:01 PM PDT) + + + + + + | Component | Value | Ref Range | Performed | Pathologist | | | | | At | Signature | + + + + + + | SOURCE BODY | Cerebrospinal Fluid | | | | | SITE | | | | | + + + + + + | CULTURE | CSF Culture | | | | | RESULT | | | | | | | Source...............: | | | | | | Cerebrospinal Fluid RLB | | | | | | Gram Stain...........: | | | | | | Gram smear performed at | | | | | | [facility]. Culture: | | | | | | Final Report: No | | | | | | growth after 3 days. | | | | | | Final Report | | | | + + + + + + + + | Specimen | + + | Cerebrospinal fluid | + + + + + + + | Performing | Address | City/State/Zipcode | Phone Number | | Organization | | | | + + + + + | [facility] | [address] | [place] [address] | | | LAB-MICRO | | | | + + + + + documented in this encounter Visit Diagnoses Not on filedocumented in this encounter Administered Medications + +---------+ +------+-------+------+ | Medication Order | MAR | Action | Dose | Rate | Site | | | Action | Date | | | | + +---------+ +------+-------+------+ | dextrose 5%-NaCl 0.9%-KCl 20 | New Bag | 05/15/19 | | 100 | | | mEq/L IV intravenous, | | 09 5:30 | | mL/hr | | | CONTINUOUS, Starting 05/14/08 | | AM PDT | | | | | at 0530, Until Tue05/14/08 at | | | | | | | 1043 | | | | | | + +---------+ +------+-------+------+ +---+---+ | | | +---+---+ + +-------+ + +---+---+ | hydrocodone-acetaminophen (aka | Given | 05/15/19 | 1 tablet | | | | VICODIN) 5-500 mg 1-2 Tab 1-2 | | 09 9:39 | | | | | tablet, oral, EVERY 4 HOURS | | AM PDT | | | | | NEEDED, Starting 05/13/08 at | | | | | | | 1633, Until Tue05/14/08 at 1921, | | | | | | | moderate pain | | | | | | + +-------+ + +---+---+ +-------+ + +---+---+ | Given | 05/15/19 | 1 tablet | | | | | 09 5:45 | | | | | | AM PDT | | | | +-------+ + +---+---+ | Given | 05/14/19 | 1 tablet | | | | | 09 9:00 | | | | | | PM PDT | | | | +-------+ + +---+---+ +---+---+ | | | +---+---+ + +-------+ +-------+---+---+ | pravastatin (aka PRAVACHOL) | Given | 05/14/19 | 40 mg | | | | tablet 40 mg 40 mg, oral, EVERY | | 09 9:00 | | | | | EVENING, First dose on Mon | | PM PDT | | | | | 05/13/08 at 2100, Until | | | | | | | Discontinued | | | | | | + +-------+ +-------+---+---+ +---+---+ | | | +---+---+ + +-------+ +--------+---+---+ | ranitidine (aka ZANTAC) tablet | Given | 05/14/19 | 150 mg | | | | 150 mg 150 mg, oral, TWICE | | 09 9:00 | | | | | DAILY, First dose on Tue05/13/08 | | PM PDT | | | | | at 2100, Until Discontinued | | | | | | + +-------+ +--------+---+---+ +---+---+ | | | +---+---+ documented in this encounter"
--- OUTSIDE RECORDS SUMMARY | ~2019-10-22 | XMS | Encounter Summary ---
Demographics + + + | Address | [address] | | | [place] [address] | + + + | Home Phone | | + + + | Preferred Language | Unknown | + + + | Marital Status | | + + + | Latter-Day Affiliation | MET | + + + | Race | White | + + + | Ethnic Group | Not or | + + + Author + + + | Author | [facility] | + + + | Organization | [facility] | + + + | Address [...] Team Providers + +------+ + | Care Squirrel Man Name | Role | Phone | + +------+ + | No Pcp Per Patient | PCP | Unavailable | + +------+ + Reason for Visit Consultation (Routine) +--------+--------+ + + + + | Status | Reason | Specialty | Diagnoses / | Referred By | Referred To | | | | | Procedures | Contact | Contact | +--------+--------+ + + + + | Closed | | Otolaryngolog | Diagnoses | Nigel, | Ata White, | | | | y | Draining | Marni Hannon | [address] | | | | | postoperativ | [address] | [address] | | | | | e wound, | [address] | [facility] | | | | | initial | [address] N[address] | [place], [place] | | | | | encounter | Rd | [address] | | | | | Procedures | [facility], [place] | Phone: | | | | | CONSULT TO | [address] | [phone] | | | | | ENT / | Phone: | Fax: | | | | | OTOLARYNGOLO | [phone] | [phone] | | | | | [place] | Fax: | | | | | | | [phone] | | +--------+--------+ + + + + Encounter Details +--------+---------+ + + + | Date | Type | Department | Care Team | Description | +--------+---------+ + + + | 02/24/ | Office | Otolaryngology | Ata White MD | History of | | 2019 | Visit | Head and Neck | [address] | cranioplasty | | | | Surgery Services at | [facility] [place], | (Primary Dx) | | | | [facility] [address] | [place] [address] | | | | | [address] | [phone] | | | | | Physician's | | | | | | Pavilion, 2nd floor | | | | | | [place], [place] | | | | | | [address] | | | | | | [phone] | | | +--------+---------+ + + + [...] + + + | Blood Pressure | 102/66 | 02/24/2018 2:29 PM | | | | | PST | | + + + + + | Pulse | - | - | | + + + + + | Temperature | - | - | | + + + + + | Respiratory Rate | - | - | | + + + + + | Oxygen Saturation | - | - | | + + + + + | Inhaled Oxygen | - | - | | | Concentration | | | | + + + + + | Weight | 51.3 kg (113 lb 1.5 | 02/24/2018 2:29 PM | | | | oz) | PST | | + + + + + | Height | - | - | | + + + + + | Body Mass Index | 22.84 | 02/24/2018 12:26 PM | | | | | PST [...] documented as of this encounter Progress Notes Ata White MD - 02/24/2018 6:50 PM PSTClinic Date:02/24/2018 A very pleasant woman who I have met in the past. She is completely settled down with her wounds and are healing at this time. She is going to get a cranioplasty, and they question what type of free tissue transfer should we use. I went over her findings with her. I think that when they do the scalp incision and raise up the skin that we can examine the thickness and the viability of the scalp flap. If there is any question at all, we can put up a latissimus dorsi myogenous flap from the right side . This would provide us with good lining and good coverage. If the scalp flap in fact is n ice and thick and looks good and is viable, then we could do a radial forearm flap just over the incisional site to connect up the two scalp flaps. I need to make that decision intraoperatively. She is left handed. We will use her right hand, her right arm, right scapula or right latissimus. I went over the complications, morbidity, the surgical findings, etc. She understood all o f this, as did her family. We will get the ball rolling in terms of getting her surgery scheduled. MD CHANDRIKA Hansen/NGUYEN /[id number] signed by Ata White MD at 02/27/2018 10:56 AM Ata Siddiqui MD - 02/24/2018 2:00 PM PSTDictation #[id number] signed by Ata White MD at 02/24/2018 6:06 PM PSTdocumented in this en counter Plan of Treatment Not on filedocumented as of this encounter Visit Diagnoses + + | Diagnosis | + + | History of cranioplasty - Primary | + + documented in this encounter"
--- OUTSIDE RECORDS SUMMARY | ~2019-10-22 | XMS | Encounter Summary ---
Demographics + + + | Address | [address] | | | [place] [address] | + + + | Home Phone | | + + + | Preferred Language | Unknown | + + + | Marital Status | | + + + | Hindu Affiliation | MET | + + + | Race | White | + + + | Ethnic Group | Not or | + + + Author + + + | Author | [facility] | + + + | Organization | [facility] | + + + | [...] Team Providers + +------+ + | Care Propagation Worker Name | Role | Phone | + [...] | | | | | | | [address] | | | | | | | [id number] | | | | | | | [facility] | | | | | | | [place], | | | | | | | [place] [address] | | | | | | | Phone: | | | | | | | [phone] | +--------+--------+ + + + + Encounter Details +--------+ + + + + | Date | Type | Department | Care Team | Description | +--------+ + + + + | 04/11/ | Hospital | [facility] [address] | Paramjit Huber MD | | | 2008 - | Encounter | [address] | [address] | | | | | [id number] [facility] | [place], [place] | | | 04/13/ | | [facility] [place], | [address] | | | 2008 | | [place] [address] | [phone] | | | | | [phone] | | | +--------+ + + + [...] + + + | Blood Pressure | 115/55 | 04/13/2008 6:46 AM | | | | | PST | | + + + + + | Pulse | 82 | 04/13/2008 6:46 AM | | | | | PST | | + + + + + | Temperature | 36.4 C (97.5 F) | 04/13/2008 6:46 AM | | | | | PST | | + + + + + | Respiratory Rate | 16 | 04/13/2008 6:46 AM | | | | | PST | | + + + + + | Oxygen Saturation | 95% | 04/13/2008 6:46 AM | | | | | PST | | + + + + + | Inhaled Oxygen | - | - | | | Concentration | | | | + + + + + | Weight | 52.6 kg (116 lb) | 04/11/2008 2:05 PM | | | | | PST | | + + + + + | Height | 149.9 cm (4' 11") | 04/11/2008 2:05 PM | | | | | PST | | + + + + + | Body Mass Index | 23.43 | 04/11/2008 2:05 PM | | | | | PST | | + + + + + documented in this encounter Discharge Summaries Alyssa Liu - 04/13/2008 4:30 PM PST Choco Yang MD - 04/13/2008 12:46 PM PSTFormatt ing of this note might be different from the original. NEUROSURGICAL DISCHARGE AND INTERDISCIPLINARY INSTRUCTIONS Admission Date: 04/11/2008 Discharge Date: 04/12/2008 Service: Neurological Surgery Principal Final Diagnosis: Hydrocephalus Additional Diagnoses: None Principal Procedure: DIRECTOR OF PROGRAMMING Shunt Placement Reason for Admission, Significant Findings, Treatment, and Complications Brief Hospital Course: Cielo Bell is a 58 y.o. female who was admitted for the aforementioned operation. (Ple ase see the operative report for full details of the procedure). Post-operatively the patien vijay was transferred to the cooper and did well. On POD 1, the patient was seen by sports physical therapist apy and then by occupational therapy to evaluate her ambulatory status after shunt placement . Per the family and the patient she is much more alert and interactive at this time. The patient was satisfactorily ambulating during the afternoon of post-operative day 1, tolerati ng a regular diet without difficulty and pain was well controlled on oral medications thus t he patient was discharged to home in stable condition. Diet: Regular Activity: No driving for for period of time that you are taking pain medications. Limit li fting to less than 10lbs for 4-6 weeks. Please limit your bathing to showers only and please do not submerge your wounds. Special Instructions: OK to shower but do not soak incisions Call: Please call and ask for the Neurosurgery resident applications chemist if you have any of the following: [...] follow-up appointment with Dr. Huber at the [facility] on the 8th floor of the [facility] and [facility]: Please call [phone] to make or confirm your appointment for 7-10 days. Follow Up Tests: None Condition On Discharge: Good Vital Signs at discharge as appropriate: BP: 114/60 mmHg (04/12/08 8:07 AM) Pulse: 78 (04/12/08 8:07 AM) Resp: 16 (04/12/08 8:07 AM) Wt - Scale: 52.617 kg (116 lb) (04/11/08 2:05 PM) Physical Examination: General: No apparent distress. Resting comfortably. HEENT: Incision at right frontoparietal region is clean dry and intact. Extraocular muscle s intact, pupils equal round and reactive to light with appropriate accomodation. Pulmonary: Clear to ausculation bilaterally, no rales, crackles or wheezes. Cardiac: Regular rate and rhythm no obvious murmurs, rubs or gallops. Abdomen: Wound dressing dry and intact with no bleed-through. Extremities: Warm and well perfused. Neurological: Alert and oriented to person, place, time, and reason for hospitalization. Cranial nerves are intact upon close examination, there is no nystagmus, 5/5 muscle strengt h in bilateral upper extremitiy flexors and extensors as well as foundry manager and intrinsic muscles of the hand, 5/5 muscle strength in bilateral lower extremity flexors and extensors includin g dorsiflexion and plantar function. Sensate to light touch on lateral feet and between the re first toe interspace. Sensate to light touch throughout the rest of the body. Medication Reconciliation: START taking these medications senna-docusate 8.6-50 mg Oral Tablet Take 1 Tab by mouth two times daily. Qty: 120 Refills: 0 CONTINUE these medications which have CHANGED oxycodone immediate release Oral Tablet Take 7.5-15 mg by mouth every three hours as needed for severe pain. Qty: 40 Refills: 0 CONTINUE these medications which have NOT CHANGED pravastatin 20 mg Oral Tablet take 2 tablets (40 mg) by oral route once daily Qty: 30 Refills: 1 STOP taking these medications docusate sodium (COLACE) 100 mg Oral Capsule Discharge Patient To: Home Does patient have a planned readmission: No Discharge Summary Completed?: Yes. 04/12/2008 Discharging Provider: CHOCO YANG MD Date Completed: 04/12/2008 Time Completed: 10:57 AM Discharging Attending: Paramjit Huber MD documented in this encou nter Discharge Instructions Instructions Digna Martinez - 04/12/2008Formatting of this note might be different from th [place] original. NEUROSURGICAL DISCHARGE AND INTERDISCIPLINARY INSTRUCTIONS Admission Date: 04/11/2008 Discharge Date: 04/12/2008 Service: Neurological Surgery Principal Final Diagnosis: Hydrocephalus Additional Diagnoses: Principal Procedure: DIRECTOR OF PROGRAMMING Shunt Placement Reason for Admission, Significant Findings, Treatment, and Complications Brief Hospital Course: Cielo Bell is a 58 y.o. female who was admitted for the aforementioned operation. (Ple ase see the operative report for full details of the procedure). Post-operatively the patien t was transferred to the cooper and did well. On POD 1, the patient was seen by sports physical therapist apy and then by occupational therapy to evaluate her ambulatory status after shunt placement . Per the family and the patient she is much more alert and interactive at this time. The patient was satisfactorily ambulating during the afternoon of post-operative day 1, tolerati ng a regular diet without difficulty and pain was well controlled on oral medications thus t he patient was discharged to home in stable condition. Diet: Regular Activity: No driving for for period of time that you are taking pain medications. Limit li fting to less than 10lbs for 4-6 weeks. Please limit your bathing to showers only and please do not submerge your wounds. Special Instructions: OK to shower but do not soak incisions Call: Please call and ask for the Neurosurgery resident applications chemist if you have any of the following: [...] follow-up appointment with Dr. Huber at the [facility] on the 8th floor of the [facility] and [facility]: Please call [phone] to make or confirm your appointment for 7-10 days. Follow Up Tests: None Condition On Discharge: Good Vital Signs at discharge as appropriate: BP: 114/60 mmHg (04/12/08 8:07 AM) Pulse: 78 (04/12/08 8:07 AM) Resp: 16 (04/12/08 8:07 AM) Wt - Scale: 52.617 kg (116 lb) (04/11/08 2:05 PM) Physical Examination: General: No apparent distress. Resting comfortably. HEENT: Incision at right frontoparietal region is clean dry and intact. Extraocular muscle s intact, pupils equal round and reactive to light with appropriate accomodation. Pulmonary: Clear to ausculation bilaterally, no rales, crackles or wheezes. Cardiac: Regular rate and rhythm no obvious murmurs, rubs or gallops. Abdomen: Wound dressing dry and intact with no bleed-through. Extremities: Warm and well perfused. Neurological: Alert and oriented to person, place, time, and reason for hospitalization. Cranial nerves are intact upon close examination, there is no nystagmus, 5/5 muscle strengt h in bilateral upper extremitiy flexors and extensors as well as foundry manager and intrinsic muscles of the hand, 5/5 muscle strength in bilateral lower extremity flexors and extensors includin g dorsiflexion and plantar function. Sensate to light touch on lateral feet and between the re first toe interspace. Sensate to light touch throughout the rest of the body. Medication Reconciliation: START taking these medications senna-docusate 8.6-50 mg Oral Tablet Take 1 Tab by mouth two times daily. Qty: 120 Refills: 0 CONTINUE these medications which have CHANGED oxycodone immediate release Oral Tablet Take 7.5-15 mg by mouth every three hours as needed for severe pain. Qty: 40 Refills: 0 CONTINUE these medications which have NOT CHANGED pravastatin 20 mg Oral Tablet take 2 tablets (40 mg) by oral route once daily Qty: 30 Refills: 1 STOP taking these medications docusate sodium (COLACE) 100 mg Oral Capsule Discharge Patient To: Home Does patient have a planned readmission: No Discharge Summary Completed?: Yes. 04/12/2008 Discharging Provider: FINA HALL MD Date Completed: 04/12/2008 Time Completed: 10:57 AM Discharging Attending: MD CHOCO Woods MD [address] [address] [address] INPATIENT NURSE ORDER FOR DISCHARGE AND INTERDISCIPLINARY INSTRUCTIONS DISCHARGE DATE: 04/13/2008 PATIENT EDUCATION: Patient given the following printed education materials None Review with patient/family: Understanding of disease/injury/surgical repair Yes Signs/symptoms that they should report Yes Understanding of medications and side effects Yes Activity and diet instructions Yes Follow-up appointments Yes Any concerns/fears Yes Smoking Cessation Counseling/Information was given: N/A Additional Instructions: (ex: daily weights, wound care, tube feeding, trach care, CBG jake toring etc.) none Personal Effects/Medications: Sent home with patient Discharged Via: Wheelchair Mode of Transportation: Car Accompanied by: Family/Responsible [employer] Discharge Nurse: Digna Juan Date: 04/13/2008 Discharge Time: 3:17 PM documented in this encounter Progress Notes Choco Yang MD - 04/13/2008 2:31 PM PSTFormatting of this note might be different from t [place] original. NEUROSURGERY INPATIENT PROGRESS NOTE: Author; CHOCO YANG MD Attending Physician: Paramjit Huber MD PCP: Anil Baker DO Interval Hx: There were no events overnight and the patient has no new neurological complaints this morn ing. No numbness, tingling, weakness, double vision, nausea or vomiting. Objective: Last Vitals: BP 115/55 | Pulse 82 | Temp 36.4 C (97.5 F) | Resp 16 | Ht 1.499 m (4' 11" ) | Wt 52.617 kg (116 lb) | SpO2 95% 24 Hour Vital Min/Max: Systolic (24hrs), Av mmHg, Min:113 mmHg, Max:138 mmHg Diastolic (24hrs), Av mmHg, Min:55 mmHg, Max:80 mmHg Pulse Av.6 Min: 80 Max: 92 Temp Av.4 C (97.6 F) Min: 36.2 C (97.2 F) Max: 36.8 C (98.2 F) Resp Av.0 Min: 14 Max: 18 SpO2 Av.2 % Min: 93 % Max: 95 % Intake/Output Summary (Last 24 hours) at 04/13 1431 Last data filed at 04/13 1300 Gross per 24 hour Intake 1605 ml Output 0 ml Net 1605 ml Medications: acetaminophen (aka TYLENOL) suppository 325-650 mg, 325-650 mg, Rectal, EVERY 6 HOURS NE EDED acetaminophen (aka TYLENOL) tablet 325-650 mg, 325-650 mg, Oral, EVERY 6 HOURS NEEDED bisacodyl (aka DULCOLAX) suppository 10 mg, 10 mg, Rectal, TWICE DAILY NEEDED dextrose 5%-NaCl 0.9%-KCl 20 mEq/L IV infusion, 75 mL/hr, Intravenous, CONTINUOUS diphenhydrAMINE (aka BENADRYL) capsule 25-50 mg, 25-50 mg, Oral, EVERY 4 HOURS NEEDED diphenhydrAMINE (aka BENADRYL) injection 25-50 mg, 25-50 mg, Intravenous, EVERY 4 HOURS NEEDED docusate sodium (aka COLACE) capsule 100 mg, 100 mg, Oral, TWICE DAILY NEEDED HYDROmorphone (aka DILAUDID) injection 0.5-2 mg, 0.5-2 mg, Intravenous, EVERY 2 HOURS NE EDED magnesium hydroxide (aka MILK OF MAGNESIA) suspension 30 mL, 30 mL, Oral, EVERY 4 HOURS NEEDED ondansetron (aka ZOFRAN) injection 4 mg, 4 mg, Intravenous, EVERY 8 HOURS NEEDED oxycodone immediate release (aka ROXICODONE) tablet 7.5-15 mg, 7.5-15 mg, Oral, EVERY 3 HILARY RS NEEDED pravastatin (aka PRAVACHOL) tablet 40 mg, 40 mg, Oral, DAILY ranitidine (aka ZANTAC) tablet 150 mg, 150 mg, Oral, TWICE DAILY Physical Examination: General: No apparent distress. Resting comfortably. HEENT: Atraumatic, normocephalic, extraocular muscles intact, pupils equal round and react chon to light with appropriate accomodation. Extremities: Warm and well perfused. Neurological: Alert and oriented to person, place, time, and reason for hospitalization. Cranial nerves are intact upon close examination, there is no nystagmus, 5/5 muscle strengt h in bilateral upper extremitiy flexors and extensors as well as foundry manager and intrinsic muscles of the hand, 5/5 muscle strength in bilateral lower extremity flexors and extensors includin g dorsiflexion and plantar function. Sensate to light touch on lateral feet and between the re first toe interspace. Sensate to light touch throughout the rest of the body. Wound: Clean, dry and intact dressing. There is no drainage from the wound and there is n o active bleeding. The dressing was not removed today. Labs: No new labs. Assessment and Plan: Cielo Bell is a 58 y.o. female status post VPS placement for hydrocephalus, now POD # 1 . Stable condition at this time. The patient feels much more alert and awake and would li ke to go home after ambulating with PT/OT this afternoon. If the situation changes she may stay another night. Choco Savage MD - 04/12 2:32 PM PST Neurosurgery Postoperative Check 04/12/2008 2:32 PM CHOCO Huber MD Subjective: The patient complains of nothing but appears very tired. Objective: Last Vitals: BP 122/57 | Pulse 82 | Temp 36.7 C (98.1 F) | Resp 16 | Ht 1.499 m (4' 11" ) | Wt 52.617 kg (116 lb) | SpO2 95% 24 Hour Vital Min/Max: Systolic (24hrs), Av mmHg, Min:96 mmHg, Max:134 mmHg Diastolic (24hrs), Av mmHg, Min:53 mmHg, Max:74 mmHg Pulse Av.8 Min: 72 Max: 100 Temp Av.5 C (97.7 F) Min: 35.8 C (96.4 F) Max: 36.8 C (98.2 F) Resp Av.8 Min: 13 Max: 19 SpO2 Av.0 % Min: 91 % Max: 99 % Intake/Output Summary (Last 24 hours) at 04/12 1432 Last data filed at 04/12 1300 Gross per 24 hour Intake 2560 ml Output 50 ml Net 2510 ml Physical Examination: General: No apparent distress. Resting comfortably. HEENT: Incision over right frontoparietal region with some ecchymoses. The extraocular mu scles are intact but there appears to be mild ptosis of left eye and patient has difficulty elevating her brow, pupils equal round and reactive to light with appropriate accomodation. Pulmonary: Clear to ausculation bilaterally, no rales, crackles or wheezes. Cardiac: Regular rate and rhythm no obvious murmurs, rubs or gallops. Abdomen: No obvious scars, non-tender, non-distended, normoactive bowel sounds. Wound monica ssed with no bleed through. Extremities: Warm and well perfused. Neurological: Alert and oriented to person, place, time, and reason for hospitalization. Cranial nerves are intact upon close examination, there is no nystagmus, 5/5 muscle strengt h in bilateral upper extremitiy flexors and extensors as well as foundry manager and intrinsic muscles of the hand, 3/5 muscle strength in bilateral lower extremity flexors and extensors includin g dorsiflexion and plantar function. Sensate to light touch on lateral feet and between the re first toe interspace. Sensate to light touch throughout the rest of the body. Wound: Clean, dry and intact wound. There is no drainage from the wound and there is no a ctive bleeding. Labs: Lab Results Lab Test Name Results Date/Time WBC 9.5 03/05/08 HB 11.4 03/05/08 HCT 33.6 03/05/08 PLT 388 03/05/08 MCV 91.6 03/05/08 RDW 12.7 03/05/08 Lab Results Lab Test Name Results Date/Time NA 145 03/05/08 K 4.0 03/05/08 CL 111 03/05/08 BICARB 25 03/05/08 BUN 16 03/05/08 CR 0.92 03/05/08 GLU 84 03/05/08 CA 8.1 03/05/08 INR (INR) Date Value 03/03/08 1.05 PLATELET COUNT (K/cu mm) Date Value 03/05/08 388 APTT (seconds) Date Value 03/03/08 31.3 Assessment and Plan: Ms Cielo Bell is a 58 y.o. female status post right DIRECTOR OF PROGRAMMING shunt this morning for communica ting hydrocephalus. The patient is currently in Good condition. There were not abnormal lab values, and treatment at this time will consist of routine post-operative care.. [facility] for patient to be tolerating po pain medications, have A prop er functioning shunt based on patient's symptoms and be at baseline or improved mental statu s. Fina Starkey MD - 11:06 AM PST NEUROSURGERY INPATIENT PROGRESS NOTE: Author; FINA HALL MD Attending Physician: Paramjit Huber MD PCP: Anil Baker DO Interval Hx: There were no events overnight and the patient has no new neurological complaints this morn ing. No numbness, tingling, weakness, double vision, nausea or vomiting. Patient was admitt ed yesterday afternoon after her VPS placement was postponed. [facility] She had some difficulty sleeping last night. Objective: Last Vitals: BP 114/60 | Pulse 78 | Temp 36.8 C (98.2 F) | Resp 16 | Ht 1.499 m (4' 11" ) | Wt 52.617 kg (116 lb) | SpO2 95% 24 Hour Vital Min/Max: Systolic (24hrs), Av mmHg, Min:96 mmHg, Max:124 mmHg Diastolic (24hrs), Av mmHg, Min:53 mmHg, Max:74 mmHg Pulse Av.1 Min: 62 Max: 100 Temp Av.6 C (97.8 F) Min: 35.8 C (96.4 F) Max: 37 C (98.6 F) Resp Av.3 Min: 16 Max: 18 SpO2 Av.9 % Min: 91 % Max: 98 % Intake/Output Summary (Last 24 hours) at 04/12 1107 Last data filed at 04/12 0400 Gross per 24 hour Intake 1560 ml Output 0 ml Net 1560 ml Medications: acetaminophen (aka TYLENOL) suppository 325-650 mg, 325-650 mg, Rectal, EVERY 6 HOURS NE EDED acetaminophen (aka TYLENOL) tablet 325-650 mg, 325-650 mg, Oral, EVERY 6 HOURS NEEDED bisacodyl (aka DULCOLAX) suppository 10 mg, 10 mg, Rectal, TWICE DAILY NEEDED dextrose 5%-NaCl 0.9%-KCl 20 mEq/L IV infusion, 75 mL/hr, Intravenous, CONTINUOUS diphenhydrAMINE (aka BENADRYL) capsule 25-50 mg, 25-50 mg, Oral, EVERY 4 HOURS NEEDED diphenhydrAMINE (aka BENADRYL) injection 25-50 mg, 25-50 mg, Intravenous, EVERY 4 HOURS NEEDED docusate sodium (aka COLACE) capsule 100 mg, 100 mg, Oral, TWICE DAILY NEEDED HYDROmorphone (aka DILAUDID) injection 0.5-2 mg, 0.5-2 mg, Intravenous, EVERY 2 HOURS NE EDED magnesium hydroxide (aka MILK OF MAGNESIA) suspension 30 mL, 30 mL, Oral, EVERY 4 HOURS NEEDED ondansetron (aka ZOFRAN) injection 4 mg, 4 mg, Intravenous, EVERY 8 HOURS NEEDED oxycodone immediate release (aka ROXICODONE) tablet 7.5-15 mg, 7.5-15 mg, Oral, EVERY 3 HILARY RS NEEDED pravastatin (aka PRAVACHOL) tablet 40 mg, 40 mg, Oral, DAILY ranitidine (aka ZANTAC) tablet 150 mg, 150 mg, Oral, TWICE DAILY vancomycin in NaCl (PF) 0.9 % intrathecal injection, 10 mg, Intrathecal, INTRAOPERATIVELY O NCE Physical Examination: General: No apparent distress. Resting [...] extremitiy flexors and extensors as well as foundry manager and intrinsic muscles of the hand, 5/5 muscle strength in bilateral lower extremity flexors and extensors includin g dorsiflexion and plantar function. Sensate to light touch on lateral feet and between the re first toe interspace. Sensate to light touch throughout the rest of the body. Assessment and Plan: Cielo Bell is a 58 y.o. female admitted overnight for VPS placement. She has a history of craniotomy for anterior communicating aneurysm clipping in September 28 and in February 2008 was readmitted for abscess and hydrocephalus. She was discharge from that admission in goo d condition and an elective VPS was planned. 1) To OR today for VPS documented in this en counter Procedure Notes Other, Faculty - 04/13/2008 4:30 PM PST Semaj Howell, Kamari Hubbard - 04/12/2008 12:36 PM PSTAssoc iated Order(s): PROCEDURE NOTEINPATIENT BRIEF OPERATIVE NOTE Procedure Date: 04/12/08 Author: KAMARI CHA MD Attending Physician: isaac Assistants: Semaj Prieto Prior to the beginning of the procedure the team paused to verify the patient's identity, a s well as the procedure to be performed and the correct side/site. All equipment required w as ready and available. The patient was positioned appropriately. Preoperative Diagnosis: communicating hydrocephalus, post SAH Postoperative Diagnosis: same Procedure Performed: Right DIRECTOR OF PROGRAMMING shunt Estimated Blood Loss: 25 ml Fluids: crystalloid Specimens: none Complications: none Drains: none Disposition: PACU Findings: Csf under moderate pressure ther, Faculty - 009 12:00 AM PSTAssociated Order(s): ANESTHESIA/SEDATION; ANESTHESIA/SEDATION To Prieto MD - 04/12/2008 12:00 AM PSTAssociated Order(s): OPERATION RECORD; OPERATION RECORD [id number] RAY CASTRO [id number] Date: 04/12/2008 Attending Surgeon: Paramjit Huber M.D. Copyright Expert(s): To Prieto M.D. Kamari Cha M.D., Ph.D. 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 Procedures Performed: Right ventriculoperitoneal shunt using medium-pressure PS Medical valve. EBL: 50 cc. Complications: None. Indications: Cielo Bell is a 58-year-old female who has had subarachnoid hemorrhage in 2007. She has since developed hydrocephalus which was discovered on CT scan. Her symptom consisted of intermittent altered mental status, difficulty with balance, and headache. She was therefore indicated for the placement of a right frontal ventriculoperitoneal shunt. Procedure: The patient was correctly identified by the Anesthesia team, and the patient was brought to the operating room. She was intubated with general endotracheal anesthesia without complications. The patient was given 1 g of vancomycin for infection prophylaxis. The patient's right side of the head, posterior auricular area, neck, anterior chest and abdominal wall were prepped and draped in usual sterile surgical fashion. A small linear incision was marked at the same incision site for the patient's previous external ventricular drain placement site. This position is over the Bishop's point, which was measured about 11.5 cm from the nasion and about 3 cm from midline. This also was confirmed using her midpupillary line at the coronal suture. Another incision was marked in the right upper quadrant. Both area was infiltrated with a total of 10 mL of 0.5 Marcaine with epinephrine. Both incisions were opened using a #10 blade. A tunneling device was then tunneled from the abdominal wound to the cranial wound. This was facilitated with a small opening at the postauricular area so that the tunneling device can reach the entire length. For the abdominal wound, a split trocar was used to identify peritoneum and open the peritoneum. After insertion of the split trocar, we were able to verify the layer of peritoneum. After the opening of the peritoneum, we did see the underlying bowel and the omentum, and confirmed that we were indeed in the peritoneum. For the cranial wound, we used a high-speed shaun bit, made a bur hole at the exact original EVD bur hole site. The underlying dura was then coagulated. Before we opened the dura, we tunneled the peritoneal catheter and connected to a medium pressure PS Medical valve starting at the cranial aspect down to the peritoneal wound. The dura was then opened, and the ventricular catheter was placed in the ventricle with the first pass, and a clear CSF flow. This was just 6.5 cm from the outer table. This was then cut in appropriate length and connected to the proximal portion of the valve. This connection was secured using 2-0 silk ties. There was clear flow of spinal fluid at the peritoneal end of the catheter. Then, the distal catheter was placed in the peritoneum under direct visualization via the split trocar. The abdominal fascia was closed using 3-0 Vicryl in a tight interrupted fashion, and a subcutaneous tissue was closed using 3-0 Vicryl in a tight interrupted inverted fashion. For the retroauricular wound, the subcutaneous tissue was closed using 3-0 Vicryl, and the skin was closed using running 4-0 Rapide. As for the cranial wound, the galea was closed using 3-0 Vicryl, and the skin was closed using running 4-0 Rapide. The patient was extubated in the operating room and transported to the PACU in stable condition. Dr. Hubre was present for the critical portions of the surgery. To Prieto M.D. Paramjit Huber M.D. HS / ELINA [id number] / [id number] / [id number] / Alyssa Rosen - 04/12/2008 12:00 AM PSTAssociated Order(s): ANESTHESIA/SEDATION; ANESTHESIA/SEDATION Paramjit Huber MD - 04/12/2008 12:00 AM PSTAssociated Order(s): TEACHING PHYSICIAN; TEACHING PHYSICIAN 01 [id number] [facility] [place] [id number] Date: 04/12/2008 Attending Surgeon: Paramjit Huber M.D. Copyright Expert(s): Kamari Cha M.D., Ph.D. To Prieto M.D. Preoperative Diagnosis(es): Hydrocephalus. Postoperative Diagnosis(es): Hydrocephalus. Procedures Performed: Placement of the right frontal ventriculoperitoneal shunt medium pressure. Anesthesia: General endotracheal anesthesia. Complications: None. I, Dr. Paramjit Huber, was in the OR during the critical portion of this procedure which includes the insertion of the ventricular catheter into the ventricle and connecting it to the peritoneum through the drain and insertion of the peritoneal catheter into the peritoneal space through the trocar. There was no complication. Full operative report will be dictated by Dr. To Prieto. Paramjit Huber M.D. / [id number] / [id number] / [id number] / documented in this enco unter Miscellaneous Notes Scan - Other, Faculty - 04/13/2008 4:30 PM PST Scan - Other, Faculty - 04/13/2008 4:30 P M PST Scan - Other, Faculty - 04/13/2008 4:30 PM PST Scan - Other, Faculty - 04/13/2008 4:30 PM PST Plan of Care - Kristen Bah, PT - 04/13/2008 2:22 PM PSTPhysical Therapy E valuation Note: Admit Date: 04-12-08 Admitting Diagnosis: communicating hydrocephalus, post SAH HPI: 58 y.o. female admitted for VPS placement. 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 No device used although has a walker, cane , w/c, hospital bed. states he always walked with the patient due to most recen tly she would lose her balance backwards. He states she has never fallen because he is alway s there with her. History of Falls: no "we are very careful" Home setting: house in [facility] One or two level home: one Steps to enter home: none Assist availabe at home after discharge: 13/09 from Leisure interests: her grandchildren Patient's personal goals / personal statement: " I just want to go home" Patient's pain prior to physical therapy: no pain she states Physical Therapy evaluation complete. Please see below for full evaluation details. LE PROM: WFL, no asymmetries noted LE AROM: BLE's WFL LE strength: 5/5 throughout. L DF 5-/5. LE sensation: Denies numbness or tingling. Edema: none noted Skin integrity: No abnormal drainage noted at incision site Functional Mobility: Supine to sit at EOB slowly but independenty with coaxing. Scoot to E OB independently. Sits EOB independently with no LOB. Sit to stand with min/close CGA. No de vice. Gait: Ambulated around room (total of 75 fee) with this therapist and with . Requir ed RADIO REPORTER only due to mild unsteadiness. No LOB. states emphatically "this is so much b orquidea than before we came in !" No posterior LOB or leaning noted. Gait: shuffling steps wit h vc's to take bigger steps. Stairs: na End of session: Patient left in chair, with at bedside. Pain at end of session: no pain she states Assessment: 58 yo f s/p DIRECTOR OF PROGRAMMING shunt presents today close to if not better than her baseline, per her husbands report. She was independent with transfers out of bed and just needed RADIO REPORTER f or ambulating. She is unsteady with decreased overall balance. states she goes to ou tpatient PT for her balance issues. Anticipated discharge recommendations: Anticipate home with husbands 24 hour assist. Braden mmended to patient that she not get up alone, that she always has her there. They melly th are agreeable to this plan. They both want to go home and feel they will be fine. Recomme nd continuation of Outpatient PT for balance deficits. Thank you for this referral. Ynes Bah, PT documented in this encounter Plan of Treatment Not on filedocumented as of this encounter Procedures + +--------+ + + + | Procedure Name | Priori | Date/Time | Associated Diagnosis | Comments | | | ty | | | | + +--------+ + + + | PROCEDURE NOTE | Routin | 03/28/2015 | | Results for this | | | e | 1:52 PM | | procedure are in the | | | | PST | | results section. | + +--------+ + + + | X-RAY ABDOMEN 2 | Urgent | 04/12/2008 | | Results for this | | VIEWS | | 1:21 PM | | procedure are in the | | | | PST | | results section. | + +--------+ + + + | 12 LEAD ECG | Urgent | 04/12/2008 | | Results for this | | | | 10:50 AM | | procedure are in the | | | | PST | | results section. | + +--------+ + + + | ANESTHESIA/SEDATION | | 04/12/2008 | | Results for this | | | | 12:00 AM | | procedure are in the | | | | PST | | results section. | + +--------+ + + + | ANESTHESIA/SEDATION | | 04/12/2008 | | Results for this | | | | 12:00 AM | | procedure are in the | | | | PST | | results section. | + +--------+ + + + | TEACHING PHYSICIAN | | 04/12/2008 | | Results for this | | | | 12:00 AM | | procedure are in the | | | | PST | | results section. | + +--------+ + + + | OPERATION RECORD | | 04/12/2008 | | Results for this | | | | 12:00 AM | | procedure are in the | | | | PST | | results section. | + +--------+ + + + documented in this encounter Results PROCEDURE NOTE (03/28/2015 1:52 PM PST)X-RAY ABDOMEN 2 VIEWS (04/12/2008 1:21 PM PST) + + + + + + | Component | Value | Ref Range | Performed | Pathologist | | | | | At | Signature | + + + + + + | ABDOMEN, 2 | Two view abdomen.Study | | | | | VIEWS | limited by blur | | | | | | artifact. | | | | | | Ventriculostomy shunt | | | | | | cathetertubing projects | | | | | | over the right | | | | | | hemithorax and is | | | | | | segmentally seencoiled | | | | | | in the midabdomen with | | | | | | tip projecting over the | | | | | | left lowerquadrant. No | | | | | | bowel obstruction. | | | | | | Visualized lungs are | | | | | | clear.IMPRESSION:1. | | | | | | Limited study with | | | | | | segmentally visualized | | | | | | ventriculostomy | | | | | | shunttubing projecting | | | | | | over the midabdomenI | | | | | | have personally viewed | | | | | | this procedure/exam and | | | | | | reviewed this | | | | | | report.Author: | | | | | | Narinder EASTONReviewer: | | | | | | ADRIAN VIVAS M.D.STATUS | | | | | | FINAL / Dr. ADRIAN VIVAS | | | | + + + + + + + + | Specimen | + + | | + + + +---------+ + + | Performing | Address | City/State/Zipcode | Phone Number | | Organization | | | | + +---------+ + + | [facility] | | | | | RADIOLOGY | | | | + +---------+ + + 12 LEAD ECG (04/12/2008 10:50 AM PST) + + + + + + | Component | Value | Ref Range | Performed | Pathologist | | | | | At | Signature | + + + + + + | VENTRICULAR | 77 | BPM | [facility] | | | RATE | | | OF | | | | | | CARDIOLOGY | | + + + + + + | ATRIAL RATE | 77 | BPM | [facility] | | | | | | OF | | | | | | CARDIOLOGY | | + + + + + + | P-R | 190 | ms | [facility] | | | INTERVAL | | | OF | | | | | | CARDIOLOGY | | + + + + + + | QRS | 72 | ms | [facility] | | | DURATION | | | OF | | | | | | CARDIOLOGY | | + + + + + + | QT | 408 | ms | [facility] | | | | | | OF | | | | | | CARDIOLOGY | | + + + + + + | QTC | 462 | ms | [facility] | | | | | | OF | | | | | | CARDIOLOGY | | + + + + + + | P AXIS | 66 | degrees | [facility] | | | | | | OF | | | | | | CARDIOLOGY | | + + + + + + | R AXIS | 11 | degrees | [facility] | | | | | | OF | | | | | | CARDIOLOGY | | + + + + + + | T AXIS | 50 | degrees | [facility] | | | | | | OF | | | | | | CARDIOLOGY | | + + + + + + | EKG | Normal sinus | | [facility] | | | DIAGNOSIS | rhythmNormal ECG"I have | | OF | | | | personally interpreted | | CARDIOLOGY | | | | this report, either | | | | | | alone or with a | | | | | | trainee."Confirmed by | | | | | | KAREN ROMERO ([id number]) on | | | | | | 12-Apr-2008 15:40:13 | | | | + + + + + + | LINK TO | | | [facility] | | | [facility] | | | OF | | | (ECG | | | CARDIOLOGY | | | VIEWER) | | | | | + + + + + + + + | Specimen | + + | | + + + + + | Narrative | Performed At | + + + | Please click | [facility] | | on view image for the detailed interpretation from [employer]. | CARDIOLOGY | | | | + + + + + + + + | Performing | Address | City/State/Zipcode | Phone Number | | Organization | | | | + + + + + | [facility] | [address] | [place], [place] | | | CARDIOLOGY | [address] | [address] | | + + + + + | [facility] | [address] | [place], [place] | | | CARDIOLOGY | [facility] | [phone] | | + + + + + ANESTHESIA/SEDATION (04/12/2008 12:00 AM PST) + + + | Narrative | Performed At | + + + | | | + + + + + | Procedure Note | + + | Alyssa Liu - 04/12/2008 12:00 AM PST | + + OPERATION RECORD (04/12/2008 12:00 AM PST) + + + | Narrative | Performed At | + + + | [id number] | | | [id number] | | | [id number] [place] [id number] | | | Date: 04/12/2008 Attending Surgeon: | | | Paramjit Huber M.D. Copyright Expert(s): | | | To Prieto M.D. | | | Kamari Cha M.D., Ph.D. 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 Procedures | | | Performed: Right ventriculoperitoneal shunt using medium-pressure PS | | | Medical valve. EBL: 50 cc. Complications: None. | | | Indications: Cielo Bell is a 58-year-old female who has had | | | subarachnoid hemorrhage in 2007. She has since developed | | | hydrocephalus which was discovered on CT scan. Her symptom | | | consisted of intermittent altered mental status, difficulty with | | | balance, and headache. She was therefore indicated for the | | | placement of a right frontal ventriculoperitoneal shunt. | | | Procedure: The patient was correctly identified by the Anesthesia | | | team, and the patient was brought to the operating room. She was | | | intubated with general endotracheal anesthesia without | | | complications. The patient was given 1 g of vancomycin for | | | infection prophylaxis. The patient's right side of the head, | | | posterior auricular area, neck, anterior chest and abdominal wall | | | were prepped and draped in usual sterile surgical fashion. A small | | | linear incision was marked at the same incision site for the | | | patient's previous external ventricular drain placement site. | | | This position is over the Bishop's point, which was measured | | | about 11.5 cm from the nasion and about 3 cm from midline. This | | | also was confirmed using her midpupillary line at the coronal | | | suture. Another incision was marked in the right upper quadrant. | | | Both area was infiltrated with a total of 10 mL of 0.5 Marcaine | | | with epinephrine. Both incisions were opened using a #10 blade. | | | A tunneling device was then tunneled from the abdominal wound to | | | the cranial wound. This was facilitated with a small opening at the | | | postauricular area so that the tunneling device can reach the | | | entire length. For the abdominal wound, a split trocar was used | | | to identify peritoneum and open the peritoneum. After insertion | | | of the split trocar, we were able to verify the layer of | | | peritoneum. After the opening of the peritoneum, we did see the | | | underlying bowel and the omentum, and confirmed that we were indeed | | | in the peritoneum. For the cranial wound, we used a high-speed | | | shaun bit, made a bur hole at the exact original EVD bur hole | | | site. The underlying dura was then coagulated. Before we opened | | | the dura, we tunneled the peritoneal catheter and connected to a | | | medium pressure PS Medical valve starting at the cranial aspect | | | down to the peritoneal wound. The dura was then opened, and the | | | ventricular catheter was placed in the ventricle with the first | | | pass, and a clear CSF flow. This was just 6.5 cm from the outer | | | table. This was then cut in appropriate length and connected to | | | the proximal portion of the valve. This connection was secured | | | using 2-0 silk ties. There was clear flow of spinal fluid at the | | | peritoneal end of the catheter. Then, the distal catheter was | | | placed in the peritoneum under direct visualization via the split | | | trocar. The abdominal fascia was closed using 3-0 Vicryl in a | | | tight interrupted fashion, and a subcutaneous tissue was closed | | | using 3-0 Vicryl in a tight interrupted inverted fashion. For the | | | retroauricular wound, the subcutaneous tissue was closed using 3-0 | | | Vicryl, and the skin was closed using running 4-0 Rapide. As for | | | the cranial wound, the galea was closed using 3-0 Vicryl, and the | | | skin was closed using running 4-0 Rapide. The patient was | | | extubated in the operating room and transported to the PACU in | | | stable condition. Dr. Huber was present for the critical portions | | | of the surgery. To Prieto M.D. | | | Paramjit Huber M.D. / [id number] / [id number] / [id number] / D: | | | 04/15/2008 | | + + + + + | Procedure Note | + + | To Prieto MD - 04/12/2008 12:00 AM PST [id number] | | [id number] [id number] [place] | | [id number] Date: 04/12/2008 Attending Surgeon: | | Paramjit Huber M.D. Copyright Expert(s): To Prieto M.D. | | Kamari Cha M.D., Ph.D. Preoperative Diagnosis(es):Posthemorrhagic | | hydrocephalus. Postoperative Diagnosis(es):Posthemorrhagic hydrocephalus. Procedures | | Performed:Right ventriculoperitoneal shunt using medium-pressure PS Medical valve. | | EBL:50 cc. Complications:None. Indications:Cielo Bell is a 58-year-old female who | | has had subarachnoid hemorrhagein 2007. She has since developed hydrocephalus which was | | discovered on CTscan. Her symptom consisted of intermittent altered mental | | status,difficulty with balance, and headache. She was therefore indicated for | | theplacement of a right frontal ventriculoperitoneal shunt. Procedure:The patient was | | correctly identified by the Anesthesia team, and thepatient was brought to the operating | | room. She was intubated with generalendotracheal anesthesia without complications. | | The patient was given 1 gof vancomycin for infection prophylaxis. The patient's right | | side of thehead, posterior auricular area, neck, anterior chest and abdominal wallwere | | prepped and draped in usual sterile surgical fashion. A small linearincision was marked | | at the same incision site for the patient's previousexternal ventricular drain | | placement site. This position is over theKocher's point, which was measured about 11.5 | | cm from the nasion and about3 cm from midline. This also was confirmed using her | | midpupillary line atthe coronal suture. Another incision was marked in the right | | upperquadrant. Both area was infiltrated with a total of 10 mL of 0.5 Marcainewith | | epinephrine. Both incisions were opened using a #10 blade. Atunneling device was then | | tunneled from the abdominal wound to the cranialwound. This was facilitated with a | | small opening at the postauricular areaso that the tunneling device can reach the entire | | length. For theabdominal wound, a split trocar was used to identify peritoneum and | | openthe peritoneum. After insertion of the split trocar, we were able toverify the | | layer of peritoneum. After the opening of the peritoneum, wedid see the underlying | | bowel and the omentum, and confirmed that we wereindeed in the peritoneum. For the | | cranial wound, we used a high-speeddiamond bit, made a bur hole at the exact original | | EVD bur hole site. Theunderlying dura was then coagulated. Before we opened the dura, | | wetunneled the peritoneal catheter and connected to a medium pressure PSMedical valve | | starting at the cranial aspect down to the peritoneal wound.The dura was then opened, | | and the ventricular catheter was placed in theventricle with the first pass, and a clear | | CSF flow. This was just 6.5 cmfrom the outer table. This was then cut in appropriate | | length andconnected to the proximal portion of the valve. This connection wassecured | | using 2-0 silk ties. There was clear flow of spinal fluid at theperitoneal end of the | | catheter. Then, the distal catheter was placed inthe peritoneum under direct | | visualization via the split trocar. Theabdominal fascia was closed using 3-0 Vicryl in | | a tight interruptedfashion, and a subcutaneous tissue was closed using 3-0 Vicryl in a | | tightinterrupted inverted fashion. For the retroauricular wound, thesubcutaneous tissue | | was closed using 3-0 Vicryl, and the skin was closedusing running 4-0 Rapide. As for | | the cranial wound, the galea was closedusing 3-0 Vicryl, and the skin was closed using | | running 4-0 Rapide. Thepatient was extubated in the operating room and transported to | | the PACU instable condition. Dr. Huber was present for the critical portions of | | thesurgery. To Prieto M.D. Paramjit Huber M.D. / [id number] / [id number] / [id number] | | / T: 04/15/2008 | |endotracheal anesthesia without complications. The patient was given 1 g | |of vancomycin for infection prophylaxis. The patient's right side of the | |head, posterior auricular area, neck, anterior chest and abdominal wall | |were prepped and draped in usual sterile surgical fashion. A small linear | |incision was marked at the same incision site for the patient's previous | |external ventricular drain placement site. This position is over the | |Bishop's point, which was measured about 11.5 cm from the nasion and about | |3 cm from midline. This also was confirmed using her midpupillary line at | |the coronal suture. Another incision was marked in the right upper | |quadrant. Both area was infiltrated with a total of 10 mL of 0.5 Marcaine | |with epinephrine. Both incisions were opened using a #10 blade. A | |tunneling device was then tunneled from the abdominal wound to the cranial | |wound. This was facilitated with a small opening at the postauricular area | |so that the tunneling device can reach the entire length. For the | |abdominal wound, a split trocar was used to identify peritoneum and open | |the peritoneum. After insertion of the split trocar, we were able to | |verify the layer of peritoneum. After the opening of the peritoneum, we | |did see the underlying bowel and the omentum, and confirmed that we were | |indeed in the peritoneum. For the cranial wound, we used a high-speed | |shaun bit, made a bur hole at the exact original EVD bur hole site. The | |underlying dura was then coagulated. Before we opened the dura, we | |tunneled the peritoneal catheter and connected to a medium pressure PS | |Medical valve starting at the cranial aspect down to the peritoneal wound. | |The dura was then opened, and the ventricular catheter was placed in the | |ventricle with the first pass, and a clear CSF flow. This was just 6.5 cm | |from the outer table. This was then cut in appropriate length and | |connected to the proximal portion of the valve. This connection was | |secured using 2-0 silk ties. There was clear flow of spinal fluid at the | |peritoneal end of the catheter. Then, the distal catheter was placed in | |the peritoneum under direct visualization via the split trocar. The | |abdominal fascia was closed using 3-0 Vicryl in a tight interrupted | |fashion, and a subcutaneous tissue was closed using 3-0 Vicryl in a tight | |interrupted inverted fashion. For the retroauricular wound, the | |subcutaneous tissue was closed using 3-0 Vicryl, and the skin was closed | |using running 4-0 Rapide. As for the cranial wound, the galea was closed | |using 3-0 Vicryl, and the skin was closed using running 4-0 Rapide. The | |patient was extubated in the operating room and transported to the PACU in | |stable condition. Dr. Huber was present for the critical portions of the | |surgery. | | | | | | | | | | | | | | | | | |To Prieto M.D. | | | | | | | | | | | | | |Paramjit Huber M.D. | | | | | |HS / HS | |[id number] / [id number] / [id number] / | | | | | | | | | | | | | | | | | | | | | + + ANESTHESIA/SEDATION (04/12/2008 12:00 AM PST) + + + | Narrative | Performed At | + + + | | | + + + + + | Procedure Note | + + | Other, Faculty - 04/12/2008 12:00 AM PST | + + TEACHING PHYSICIAN (04/12/2008 12:00 AM PST) + + + | Narrative | Performed At | + + + | [id number] | | | [id number] [id number] | | | [place] [id number] | | | Date: 04/12/2008 Attending Surgeon: | | | Paramjit Huber M.D. Copyright Expert(s): | | | Kamari Cha M.D., Ph.D. | | | To Prieto M.D. Preoperative | | | Diagnosis(es): Hydrocephalus. Postoperative Diagnosis(es): | | | Hydrocephalus. Procedures Performed: Placement of the right | | | frontal ventriculoperitoneal shunt medium pressure. | | | Anesthesia: General endotracheal anesthesia. Complications: | | | None. I, Dr. Paramjit Huber, was in the OR during the critical | | | portion of this procedure which includes the insertion of the | | | ventricular catheter into the ventricle and connecting it to the | | | peritoneum through the drain and insertion of the peritoneal | | | catheter into the peritoneal space through the trocar. There was | | | no complication. Full operative report will be dictated by | | | To Prieto. Paramjit Huber M.D. AD / HS | | | [id number] / [id number] / [id number] / | | | | | + + + + + | Procedure Note | + + | Paramjit Huber MD - 04/12/2008 12:[address] [facility] [id number] | | [id number] [place] | | [id number] Date: 04/12/2008 Attending Surgeon: Paramjit | | Narinder Huber Copyright Expert(s): Kamari Cha M.D., Ph.D. | | To Prieto M.D. Preoperative Diagnosis(es):Hydrocephalus. | | Postoperative Diagnosis(es):Hydrocephalus. Procedures Performed:Placement of the right | | frontal ventriculoperitoneal shunt medium pressure. Anesthesia:General endotracheal | | anesthesia. Complications:None. I, Dr. Paramjit Huber, was in the OR during the critical | | portion of thisprocedure which includes the insertion of the ventricular catheter into | | theventricle and connecting it to the peritoneum through the drain andinsertion of the | | peritoneal catheter into the peritoneal space through thetrocar. There was no | | complication. Full operative report will be dictatedby Dr. To Prieto. Paramjit Huber, | | Narinder KAUFMAN / [id number] / [id number] / [id number] / T: 04/12/2008 | | To Prieto M.D. | | | | | |Preoperative Diagnosis(es): | |Hydrocephalus. | | | | | |Postoperative Diagnosis(es): | |Hydrocephalus. | | | | | |Procedures Performed: | |Placement of the right frontal ventriculoperitoneal shunt medium pressure. | | | | | |Anesthesia: | |General endotracheal anesthesia. | | | | | |Complications: | |None. | | | | | |I, Dr. Paramjit Huber, was in the OR during the critical portion of this | |procedure which includes the insertion of the ventricular catheter into the | |ventricle and connecting it to the peritoneum through the drain and | |insertion of the peritoneal catheter into the peritoneal space through the | |trocar. There was no complication. Full operative report will be dictated | |by Dr. To Prieto. | | | | | | | | | | | | | | | | | |Paramjit Huber M.D. | | | | | |AD / | |[id number] / [id number] / [id number] / | | | | | | | | | | | | | | | | | | | | | + + documented in this encounter Visit Diagnoses Not on filedocumented in this encounter Administered Medications + +--------+ +--------+------+------+ | Medication Order | MAR | Action | Dose | Rate | Site | | | Action | Date | | | | + +--------+ +--------+------+------+ | acetaminophen (aka TYLENOL) | Given | 04/13/19 | 650 mg | | | | tablet 325-650 mg 325-650 mg, | | 09 10:02 | | | | | oral, EVERY 6 HOURS NEEDED, | | AM PST | | | | | Starting Clarisa 04/11/08 at 1726, | | | | | | | Until 04/13/08 at 2304, pain | | | | | | | or fever greater than 38.5 | | | | | | | degrees C | | | | | | + +--------+ +--------+------+------+ +-------+ +--------+---+---+ | Given | 04/12/19 | 650 mg | | | | | 09 10:17 | | | | | | PM PST | | | | +-------+ +--------+---+---+ +---+---+ | | | +---+---+ + +---------+ + + +---+ | dextrose 5%-NaCl 0.9%-KCl 20 | New Bag | 04/11/19 | 75 mL/hr | 75 mL/hr | | | mEq/L IV infusion 75 mL/hr, | | 09 11:00 | | | | | intravenous, CONTINUOUS, Starting | | PM PST | | | | | Clarisa 04/11/08 at 1730, Until Fri | | | | | | | 04/12/08 at 1512 | | | | | | + +---------+ + + +---+ +---------+ + + +---+ | New Bag | 04/11/19 | 75 mL/hr | 75 mL/hr | | | | 09 5:30 | | | | | | PM PST | | | | +---------+ + + +---+ +---+---+ | | | +---+---+ + +-------+ +--------+---+---+ | docusate sodium (aka COLACE) | Given | 04/12/19 | 100 mg | | | | capsule 100 mg 100 mg, oral, | | 09 10:17 | | | | | TWICE DAILY NEEDED, Starting | | PM PST | | | | | Clarisa 04/11/08 at 1726, Until Sat | | | | | | | 04/13/08 at 2304, constipation | | | | | | + +-------+ +--------+---+---+ +---+---+ | | | +---+---+ + +-------+ +------+---+---+ | ondansetron (aka ZOFRAN) | Given | 04/13/19 | 4 mg | | | | injection 4 mg 4 mg, | | 09 1:46 | | | | | intravenous, EVERY 8 HOURS | | AM PST | | | | | NEEDED, Starting Clarisa 04/11/08 at | | | | | | | 1726, Until 04/13/08 at 2304, | | | | | | | nausea/vomiting | | | | | | + +-------+ +------+---+---+ +---+---+ | | | +---+---+ + +-------+ +--------+---+---+ | oxycodone immediate release | Given | 04/13/19 | 7.5 mg | | | | (aka ROXICODONE) tablet 7.5-15 mg | | 09 10:03 | | | | | 7.5-15 mg, oral, EVERY 3 HOURS | | AM PST | | | | | NEEDED, Starting Clarisa 04/11/08 | | | | | | | at 1726, Until 04/13/08 at | | | | | | | 2304, severe pain | | | | | | + +-------+ +--------+---+---+ +-------+ +-------+---+---+ | Given | 04/11/19 | 15 mg | | | | | 09 9:40 | | | | | | PM PST | | | | +-------+ +-------+---+---+ +---+---+ | | | +---+---+ + +-------+ +-------+---+---+ | pravastatin (aka PRAVACHOL) | Given | 04/13/19 | 40 mg | | | | tablet 40 mg 40 mg, oral, DAILY, | | 09 9:00 | | | | | First dose on Tue04/12/08 at | | AM PST | | | | | 0900, Until Discontinued | | | | | | + +-------+ +-------+---+---+ +---+---+ | | | +---+---+ + +-------+ +--------+---+---+ | ranitidine (aka ZANTAC) tablet | Given | 04/13/19 | 150 mg | | | | 150 mg 150 mg, oral, TWICE | | 09 9:00 | | | | | DAILY, First dose on [facility] 04/11/08 | | AM PST | | | | | at 2100, Until Discontinued | | | | | | + +-------+ +--------+---+---+ +-------+ +--------+---+---+ | Given | 04/12/19 | 150 mg | | | | | 09 10:15 | | | | | | PM PST | | | | +-------+ +--------+---+---+ | Given | 04/11/19 | 150 mg | | | | | 09 9:00 | | | | | | PM PST | | | | +-------+ +--------+---+---+ +---+---+ | | | +---+---+ + +-------+ +-----+---+---+ | vancomycin (aka VANCOCIN) IV 1 | Given | 04/13/19 | 1 g | | | | g 1 g, intravenous, EVERY 12 | | 09 12:45 | | | | | HOURS, 3 doses, First dose on Fri | | PM PST | | | | | 04/12/08 at 1245, Last dose on | | | | | | | 04/13/08 at 1245 | | | | | | + +-------+ +-----+---+---+ +-------+ +-----+---+---+ | Given | 04/13/19 | 1 g | | | | | 09 1:46 | | | | | | AM PST | | | | +-------+ +-----+---+---+ +---+---+ | | | +---+---+ documented in this encounter
--- OUTSIDE RECORDS SUMMARY | ~2019-10-22 | XMS | Encounter Summary ---
Demographics + + + | Address | [address] | | | [place] [address] | + + + | Home Phone | | + + + | Preferred Language | Unknown | + + + | Marital Status | | + + + | Mandaeism Affiliation | MET | + + + | Race | White | + + + | Ethnic Group | Not or | + + + Author + + + | Author | [facility] | + + + | Organization | [facility] | + + + | Address | [...] Team Providers + +------+ + | Care Director Mobile Name | Role | Phone | + +------+ + | Mary Vazquez PA-C | PCP | | + +------+ + Reason for Visit AUTH/CERT +--------+--------+ + + + + | Status | Reason | Specialty | Diagnoses / | Referred By | Referred To | | | | | Procedures | Contact | Contact | +--------+--------+ + + + + | | | | | | | +--------+--------+ + + + + Encounter Details +--------+ + + + + | Date | Type | Department | Care Team | Description | +--------+ + + + + | 08/03/ | Anesthesia | 6A Intra Op [id number] | Ayush Leija MD | | | 2019 | Event | [address] [address] | [address] | | | | | [facility] | Nora Funes [place], | | | | | Hospital Admitting | [place] [address] | | | | | Desk Located on the | [phone] | | | | | 9th floor | | | | | | [place], [place] | Werner Bender | | | | | [address] | MD Wilver [address] | | | | | | [address] | | | | | | [place], [place] | | | | | | [address] | | | | | | [phone] | | | | | | | | +--------+ + + + + Anesthesia Record + + + + + | Procedure Name | Responsible | Anesthesia Start | Anesthesia Stop Time | | | Anesthesiologist | Time | | + + + + + | RIGHT SIDED MESH | Ayush Leija MD | 08/03/18 1105 | 08/03/182012 | | CRANIOPLASTY; (Right | | | | | Head) | | | | + + + + + +----+---+ + + | Da | T | Event | Comment | | te | i | | | | | m | | | | | e | | | +----+---+ + + | 06 | 0 | Eq Check | Anesthesia machine checked Equipment verified | | /1 | 9 | | | | 3/ | 5 | | | | 20 | 9 | | | | 19 | | | | +----+---+ + + | | 1 | | | | | 0 | | | | | 4 | | | | | 2 | | | +----+---+ + + | | 1 | Pt. Check | Prior to anesthesia start, pt. Identified, examined, chart | | | 0 | | reviewed, PARQ held, anesthetic plan made or approved by | | | 4 | | attending anesthesiologist. NPO status confirmed as appropriate | | | 2 | | for procedure Preoperative evaluation: unchanged | +----+---+ + + | | 1 | Preprocedur | Pt ID confirmed, informed consent obtained, insertion site | | | 1 | e Checklist | marked, equipment available | | | 0 | | | | | 3 | | | +----+---+ + + | | 1 | An Start | | | | 1 | | | | | 0 | | | | | 5 | | | +----+---+ + + | | 1 | An Start | | | | 1 | Data | | | | 0 | | | | | 8 | | | +----+---+ + + | | 1 | Vitals | Monitors applied Vital signs checked Patient ready for anesthesia | | | 1 | Checked | | | | 1 | | | | | 1 | | | +----+---+ + + | | 1 | ETT | | | | 1 | | | | | 1 | | | | | 8 | | | +----+---+ + + | | 1 | Ready | | | | 1 | | | | | 2 | | | | | 8 | | | +----+---+ + + | | 1 | Abx | | | | 1 | Administere | | | | 4 | d | | | | 5 | | | +----+---+ + + | | 1 | Quick Note | Awaiting surgeon availability for positioning. | | | 1 | | | | | 5 | | | | | 0 | | | +----+---+ + + | | 1 | AN | | | | 2 | Recruitment | | | | 2 | Breath | | | | 4 | | | +----+---+ + + | | 1 | Timeout | | | | 2 | | | | | 4 | | | | | 1 | | | +----+---+ + + | | 1 | Incision | | | | 2 | | | | | 4 | | | | | 2 | | | +----+---+ + + | | 1 | AN | | | | 2 | Recruitment | | | | 5 | Breath | | | | 4 | | | +----+---+ + + | | 1 | AN | | | | 3 | Recruitment | | | | 1 | Breath | | | | 5 | | | +----+---+ + + | | 1 | AN | | | | 3 | Recruitment | | | | 2 | Breath | | | | 4 | | | +----+---+ + + | | 1 | AN | | | | 3 | Recruitment | | | | 4 | Breath | | | | 0 | | | +----+---+ + + | | 1 | AN | | | | 4 | Recruitment | | | | 3 | Breath | | | | 3 | | | +----+---+ + + | | 1 | Intraop and | - Patient/Allergies/Procedure - Relevant PMH - Relevant data | | | 7 | Med | (labs/imaging) - Anesthetic (airway, infusions, drug redoses) - | | | 1 | Handoff | Lines/Drains - I/O - Current Phase and significant events - | | | 8 | | Emergence/dispo plans, post-op concerns Fentanyl Hydromorphone | | | | | Other | +----+---+ + + | | 1 | ICU Handoff | Procedure Anesthetic Brief History Relevant | | | 7 | Call | Meds/Labs/Echo/Imaging Difficult airway? Intraoperative Course: | | | 5 | | Lines/drains EBL Significant Events Meds: Infusions, | | | 5 | | Antibiotics/Redosing, Paralytics (last dose and time), Analgesic | | | | | Plan Central line- will review image and place order in PACU | | | | | Surgeon concerns | +----+---+ + + | | 1 | Surgery end | | | | 9 | | | | | 3 | | | | | 4 | | | +----+---+ + + | | 1 | An Extubate | Neuromuscular function Intact. Pharynx suctioned. Patient obeys | | | 9 | | commands. Adequate pulmonary mechanics. | | | 3 | | | | | 9 | | | +----+---+ + + | | 1 | O2 by FM | | | | 9 | | | | | 3 | | | | | 9 | | | +----+---+ + + | | 1 | an stop | | | | 9 | data | | | | 4 | | | | | 1 | | | +----+---+ + + | | 2 | PACU Rpt | | | | 0 | Given | | | | 1 | | | | | 1 | | | +----+---+ + + | | 2 | Anesthesia | | | | 0 | End | | | | 1 | | | | | 3 | | | +----+---+ + + | | 2 | Post-Op | | | | 1 | Page | | | | 4 | | | | | 5 | | | +----+---+ + + +------+ | Meds | +------+ + + + | Name | Total | + + + | fentaNYL | 100 mcg | + + + | lidocaine 2% | 60 mg | + + + | propofol (DIPRIVAN) 200 mg | 60 mg | + + + | rocuronium | 40 mg | + + + | rocuronium | 29,280 mcg | + + + | PHENYLEPHrine | 200 mcg | + + + | PHENYLEPHrine INF (25mg/250mL) | 7,975.2 mcg | + + + | ePHEDrine | 20 mg | + + + | dexamethasone | 4 mg | + + + | ceFAZolin (ANCEF) injection 2 g | 4 g | + + + | vancomycin | 1 g | + + + | HYDROmorphone | 3.2 mg | + + + | magnesium sulfate 2 g | 2 g | + + + | albuterol neb | 6 mL | + + + | metoprolol | 5 mg | + + + | ondansetron | 4 mg | + + + | labetalol | 2.5 mg | + + + | heparin | 5,000 Units | + + + | heparin INF | 766.67 Units | + + + | LR | 2,000 mL | + + + | LR | 0 mL | + + + + + | Name | + + | O2 FR Avance (Total Liters) | + + | Air FR Avance (l/min) | + + | Insp Iso | + + | Et Iso | + + | Insp N2O % | + + + + | No blood administrations on file. | + + +--------+ + + + | Type | Details | Placement | Removal | +--------+ + + + | Wound | 12/03/17; 2200; Yes; Midline; | 12/03/17 2200 by | 08/11/18 1206 by | | | coccyx; Pressure ulcer (stage | Greg Pittman RN | Vida Rogel RN | | | II); Other (Comment) (ambulate | | | | | drive from [employer]); 08/11/18; | | | | | 1206 | | | +--------+ + + + | Incisi | 07/11/18; 1337; Dr. Salinas; Right; | 07/11/18 1337 by | 08/11/18 1206 by | | on | head; 08/11/18; 1206 | Patria Vasques RN | Vida Rogel RN | +--------+ + + + | Urethr | 08/03/18; Abrahan Banegas RN; | 08/03/18 0000 by | 08/04/18 1155 by | | al | Amado-kirk Benavides; 08/04/18; 1155; | Hemalatha Morin RN | Edita Gay RN | | Cathet | Per order | | | | er | | | | +--------+ + + + | Flap | 08/03/18; (present on arrival to | 08/03/18 0000 by | 08/11/18 1206 by | | | pacu); Right; face; 08/11/18; | Enrrique Aguilera RN | Vida Rogel RN | | | 1206 | | | +--------+ + + + | Periph | 08/03/18; (present on arrival to | 08/03/18 0000 by | 08/06/18 0402 by | | eral | pacu); Left; Wrist; 08/06/18; | Enrrique Aguilera RN | Kati Herrera RN | | IV | 0402; Occluded | | | +--------+ + + + | ETT | 08/03/18; 1118 (created via | 08/03/181117 by | 08/03/181938 by | | | procedure documentation); 6; | Werner Pettit | Silvia Mayes, | | | Oral; Cuffed; 08/03/18; 1938 | MD [place] | 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 | +--------+ + + + | Periph | 08/03/18; 1124; MD Liss; Left; | 08/03/18 1124 by | 08/04/18 1700 by | | eral | Dorsal; Ankle; 18 g; Yes; None; | Werner Pettit | Edita Gay RN | | IV | No; Positive; 08/04/18; 1700 | MD Napoleon | | | | (Painful, per pt.); Other | | | | | (Comment) | | | +--------+ + + + | Arteri | 08/03/18; 1152 (created via | 08/03/18 1152 by | 08/05/18 1543 by | | al | procedure documentation); | Werner Pettit | Marychuy Pace RN | | Line | Standard; Left; Radial; 20g; | MD Napoleon | | | | 08/05/18; 1543; Per order | | | | | (removed when pt assigned bed on | | | | | cooper/per orders) | | | +--------+ + + + | Incisi | 08/03/18; 1242; Horacio Sanderson MD; | 08/03/18 1242 by | 08/11/18 1206 by | | on | Right; flank; 08/11/18; 1206 | Hemalatha Morin RN | Vida Rogel RN | +--------+ + + + | Incisi | 08/03/18; 1245; Christal Last, | 08/03/18 1245 by | 08/11/18 1206 by | | on | MD; Right; neck; 08/11/18; 1206 | Hemalatha Morin RN | Vida Rogel RN | +--------+ + + + | Drain | 08/03/18; 1527; Dr. White; LAZARA; | 08/03/18 1527 by | 08/11/18 1206 by | | | Right; Lateral; flank; 1; | Kody Griffiths RN | Vida Rogel RN | | | 08/11/18; 1206 | | | +--------+ + + + | Drain | 08/03/18; 1527; Dr. White; LAZARA; | 08/03/18 1527 by | 08/09/18 09 by | | | Right; Medial; flank; 2; | Kody Griffiths RN | Sheryl Godfrey RN | | | 08/09/18; 899 | | | +--------+ + + + | Drain | 08/03/18; 1913; Dr. Garcia; | 08/03/181913 by | 08/11/18 120 by | | | Tiffanie; Right; head; 3; | Kody Griffiths RN | Vida Rogel RN | | | 08/11/18; 1206 | | | +--------+ + + + documented in this encounter Social History + + + +--------+------+ | [...] + + documented as of this encounter OR Notes Anesthesia Postprocedure Evaluation - Carlos Eduardo Gonzales MD - 08/03/2018 9:00 PM PDT Cielo Bell [id number] Vitals Value Taken Time BP 116/59 08/03/2018 9:45 PM Temp 36.2 C (97.2 F) 08/03/2018 8:02 PM Pulse 104 08/03/2018 9:45 PM Resp 22 08/03/2018 9:45 PM SpO2 92 % 08/03/2018 9:45 PM EVALUATION VS (BP, HR, RR, SpO2, and Temp) and hydration status are stable ROS including Cards, Resp, Neuro, and GI without evidence of adverse effects No PONV Pain controlled No altered mental status COMPLICATIONS No adverse events Other/Comments: SpO2 low-mid 90s on O2. This is consistent with her baseline respiratory di sease and her intraoperative saturations. Safe to transfer to NSICU for continued monitoring . nesthesia Procedure Notes - Werner Bender MD - 08/03/2018 11:52 AM PDTAssociated Order(s): ETTAIRWAY MANAGEM ENT - ETT Time of Placement: 08/03/2018 11:18 AM Intubation Reason: For surgical procedure Positioning: Sniffing Location Performed:OR OXYGENATION Patient was preoxygenated No apneic oxygenation Grade: Grade 1 - Ventilated by mask Manual in-Line Stabilization: No Induction:Routine, without Cricoid Pressure INTUBATION ATTEMPT 1 Blade Type: Nidhi Blade #: 3 Laryngoscopic View: Grade I Surgical Airway: no Surgical Airway ETT DETAILS ETT Type:Standard, Hi-Lo Cuffed Intubation Type: Oral Cuff Status: Cuffed Size: 6 ETT secured with adhesive tape Depth at Teeth: 20 cm Airway Leak: Yes 20 cmH2O CONFIRMATION Number of Attempts: 1 Atraumatic placement Positive for EtCO2:Waveform capnography NARRATIVE Attending was physically present for the critical portions of the procedure as described in the procedure note Attending/Authorizing Provider: Ayush Leija MD Performing Provider: Werner Bender MD nesthesia Procedure No silvina - Werner Bender MD - 08/03/2018 11:52 AM PDTAssociated Order(s): Art LineProced ure ART LINE Procedure Information Inserted: After Induction 3 minutes to perform. Type Catheter: Arrow kit Indications: Beat to beat blood pressure monitoring Location Performed: OR Informed Consent: Included in anesthesia consent Protective Barrier: Cap, Hand scrub, Mask and Sterile Gloves Skin Prep: Chloraprep Draped: Partially draped Anesthesia Method: Local infiltration w/lidocaine Insertion side: Left Insertion Site: Radial Access device: 20g Line secured by:Dressing Applied and StatLock Artery locater technique: Ultrasound Ultrasound image: Printed and placed in patients chart Assessment Number of attempts: 1st Complications: None Assessment: Perfusion checked distal to catheter, Tolerated procedure well and Catheter con nected to pressure line and flushed, catheter manually flushed Attending Name: Ayush Leija MD performed by resident Name: Werner Bedner MD nesthesia Preprocedure Evaluation - Werner Bender MD - 08/03/2018 10:41 AM [facility] Marsha Bell [id number] NPO: 0000 08/03 Last Vitals Temp: 36.4 C (97.6 F) Heart Rate: 91 Resp: 18 BP: 100/74 SpO2: 94 % O2 Flow Rate: 0 LPM O2 Delivery Device: None (room air) Preg Status/LMP /Could Be : Not HCG Test: Not performed ANESTHESIA PLAN ASA 3 NPO Status: NPO by protocol ANESTHETIC TECHNIQUE Technique Used: General Induction: intravenous Comments: GA SUGAMMADEX You will be given a medication (Sugammadex) to help facilitate your surgery. This drug is n ecessary to allow you to wake up from your anesthetic safely. Sugammadex can affect hormona l contraceptives, including the 'Pill', vaginal ring, implants or a hormonal IntraUterine Sy stem (IUS), and make them less effective because it reduces how much you get of the progesto gen hormone. The amount of progestogen lost by using Sugammadex is about the same as missing one oral contraceptive Pill. If you are using the Pill or other hormonal contraceptives (f or example a vaginal ring, implant or IUS) you should use an additional non-hormonal contrac eptive method (such as a condom) for the next 7 days. MONITORS/LINES TO BE USED Standard Art line ANESTHETIC CONSIDERATIONS PONV prophylaxis, Premeds, Preop antibiotics and IV when asleep POSTOP PAIN IV analgesics BLOOD PRODUCTS T and S INFORMED CONSENT PARQ and risks/benefits of anesthetic plan discussed with patient and Patient Additional Consent Issues: Procedures, Alternatives, Risks, and Questions discussed. Risk/b enefit of anesthesia plan and blood product discussed Dental Risk discussed with patient Consent series given Comments: Full PARQ with patient regarding GETA and possible invasive monitors. All questions and concerns addressed before the procedure. Patient acknowledged understanding of all risks including but not limited to pain, nausea/v omiting, unexpected drug reaction, bruised / cut lip or damage to teeth, sore throat, possib ility of blood transfusion, addition of invasive lines, stroke, myocardial infarction, need for post-operative ICU care, including post-operative ventilation, and possibility of abando paramjit the procedure for any reason. Patient wishes to proceed. PATIENT'S CODE STATUS IN OR FULL documented in this enco unter Miscellaneous Notes Addendum Note - Silvia Mayes CRNA - 08/17/2018 9:19 AM PDTFormatting of this note mi ght be different from the original. Addendum created 08/17/18918 by Silvia Mayes CRNA Intraprocedure Meds edited [facility] PreOp No Werner Wallace MD - 08/03/2018 9:52 AM PDTROS: HPI: Cielo Bell is a 68 y.o. 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 Has been off of aspirin since her most recent surgery (April). PMH: -hypertension on lisinopril 5 mg daily (did not take this AM) -CAD - prior STEMI s/p BMS (denies symptoms since last OK ~2 years prior, took metoprolol t his AM) -COPD - 3L O2 at night, current smoker -denies GERD Prior Anesthetic Problems: No Pulmonary: Current every day smoker 50 pack year smoker, Pt does not use home O2 per refusal no short ness of breath cough chronic Pt. Has no asthma COPD (O2 at night) severe (O2) No dx of s leep apnea Cardiovascular: Activity:Pt reports being able to go up multiple flights of steps without SOB. ECGs reviewed, showing anterolateral Q waves suggestive of prior infarction. NSR. Summary: -- Echo (03/02/17 - [facility]): TDS, EF 35-40%, apical 1/3 is aneurysmal, with akinesis in focal a reas of dyskinesis. Grade 1 diastolic dysfunction. Normal RV size and function. Mild AI -- Cardiac Cath (09/15/16): Left ventricular end-diastolic pressure 25. LM-normal. Proximal- mid LAD with patent stents, 40% ISR, FFR 0.85. LCx-normal, OM2-20%. RCA proximal-20%, mid-30 % -- Lexiscan Cardiolite stress test (07/27/16-[facility]): Severe LV enlargement, marked scarring (co mprising approximately 60% of the entire LV) of the entire anterior, anteroseptal, mid and d istal inferior, inferoseptal, inferolateral and anterolateral segments with no evidence of i schemia, EF 16% -- Echo (12/28/14-[facility]): EF 54%, apical hypokinesis, grade 1 diastolic dysfunction, mild AI -- Cardiac Cath / PCI (12/28/14 - [facility]): LVEDP 35, LM-normal, mid LAD- occluded > overlapping 2.5x20 and 2.5x12 Rebel BMS, LCx-LIs, mid RCA-20-30% with collaterals to the LAD -- Lipid panel (09/15/16): TC-136, LDL-58, HDL-55, TG-116 TTE 04/2017: CONCLUSIONS 1. This was a technically difficult study with suboptimal parasternal views. 2. Overall left ventricular systolic function is moderately impaired with, an EF between 35 - 40 %.The apical 1/3 of the LV is aneurysmal, akinetic with focal areas of dyskinesis (slightly higher up on the septal side) consistent with CAD. 3. The diastolic filling pattern indicates impaired relaxation consistent with mild dysfunc tion (Grade I). 4. The right ventricle is normal in size and function. 5. There is mild aortic regurgitation. Cath 10/2016: IMPRESSION Three-vessel coronary artery disease with moderate in-stent restenosis of the mid left ante rior descending artery with insignificant fractional flow reserve value of 0.85, and otherwi se mild obtuse marginal and right coronary artery disease. Nuclear stress test 07/2016: 1.Regadenoson EKG is negative. 2.Abnormal Regadenoson Sestamibi myocardial perfusion study with a very large size, fix ed defect of a severe in severity of the entire anterior, anteroseptal, mid and distal infer ior, inferoseptal, inferolateral and anterolateral.This suggests a multi-vessel coronary artery disease with evidence of a very large size scar of all 3 vessel territories.Left ventricular cavity is markedly dilated. Gated SPECT reveals a thinning and dyskinesis anter o- apical region suggesting a true apical aneurysm.There is a severe global hypokinesis of the left ventricle.Overall, left ventricular systolic function is severely decreased. LVEF by gated SPECT is 16%. Echo 12/2014: Normal LV size and mild apical hypokinesis with overall preserved systolic function with LV EF 54%.2. Mild aortic insufficiency without significant stenosis.3. Normal pulmonary press ures.4. Grade 1 LV diastolic dysfunction. Functional Capacity: Low - cyanosis, palpitations and syncope no PAD no chest pain CHF EF by Echo: 35-40 NYHA Cla ssification:III Type:diastolic and left heart hypertension well controlled CAD Sx (BMS x2 LA D 12/2015) medically managed cardiac stents past OK Last OK: > 1 year valvular problems /murmurs AR no pacemaker/ICD GI/Hepatic: no GI Bleed no OTHER GI GERD Control: Well controlled no liver disease no hepatitis Renal: Lab Results Component Value Date NA 137 07/10/2018 K 4.2 07/10/2018 CL 105 07/10/2018 BICARB 28 07/10/2018 BUN 16 07/10/2018 EGFRAFRICAN >60 07/10/2018 EGFRNONAFR >60 07/10/2018 CR 0.88 07/10/2018 GLU 117 07/11/2018 CA 8.7 07/10/2018 ANIONGAP 4 07/10/2018 ANIONALBCOR 7 05/14/2018 no renal failure no dialysis Endo: no Diabetes: no Hx Corticosteroid Use Neuro/Psych: 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 has: no active bleeding Hemoglobin Disorders anemia Infectious Disease: MRSA Skin: no open wounds Physical Exam General: Appearance: Older than stated age and No distress LOC: Alert Arousability: Arouses to verbal stimuli HEENT: Normocephalic/Atraumatic Airway: Dentition: dentures-upper Mallampati: 1 TM Distance:> 6 cm Cormier: No C-Spine ROM: Normal Neck Anatomy: Normal Jaw Protrusion: Normal (lower incisors go above upper incisors) Pulmonary: Respiratory: pulmonary exam normal Breath Sounds: rhonchi, wheezes Breath sound comments: distant Cardiovascular: Rhythm: Regular Rate: Normal Cardiovascular comments: distant heart sounds Neuro/Psych: Affect: Normal Cognitive Status: Normal Skin: Color: skin color normal documented in t his encounter Plan of Treatment Not on filedocumented as of this encounter Procedures + +--------+ + + + | Procedure Name | Priori | Date/Time | Associated Diagnosis | Comments | | | ty | | | | + +--------+ + + + | ANE ETT | Routin | 08/03/2018 | | Results for this | | | e | 11:52 AM | | procedure are in the | | | | PDT | | results section. | + +--------+ + + + | ANE ART LINE | Routin | 08/03/2018 | | Results for this | | | e | 11:52 AM | | procedure are in the | | | | PDT | | results section. | + +--------+ + + + documented in this encounter Results ETT (08/03/2018 11:52 AM PDT) + + + | Narrative | Performed At | + + + | Werner Bender MD 08/03/2018 11:53 AM AIRWAY MANAGEMENT | | | - ETT Time of Placement: 08/03/2018 11:18 AM Intubation Reason: For | | | surgical procedure Positioning: Sniffing Location Performed:OR | | | OXYGENATION Patient was preoxygenated No apneic oxygenation Grade: | | | Grade 1 - Ventilated by mask Manual in-Line Stabilization: No | | | Induction:Routine, without Cricoid Pressure INTUBATION ATTEMPT | | | 1 Blade Type: Nidhi Blade #: 3 Laryngoscopic View: Grade I | | | Surgical Airway: no Surgical Airway ETT DETAILS ETT | | | Type:Standard, Hi-Lo Cuffed Intubation Type: Oral Cuff Status: | | | Cuffed Size: 6 ETT secured with adhesive tape Depth at Teeth: 20 | | | cm Airway Leak: Yes 20 cmH2O CONFIRMATION Number of Attempts: | | | 1 Atraumatic placement Positive for EtCO2:Waveform capnography | | | NARRATIVE Attending was physically present for the critical portions | | | of the procedure as described in the procedure note | | | Attending/Authorizing Provider: Ayush Leija MD Performing Provider: | | | Werner Bender MD | | + + + Art Line (08/03/2018 11:52 AM PDT) + + + | Narrative | Performed At | + + + | Werner Bender MD 08/03/2018 11:52 AM Procedure ART | | | LINE Procedure Information Inserted: After Induction 3 minutes to | | | perform. Type Catheter: Arrow kit Indications: Beat to beat blood | | | pressure monitoring Location Performed: OR Informed Consent: | | | Included in anesthesia consent Protective Barrier: Cap, Hand scrub, | | | Mask and Sterile Gloves Skin Prep: Chloraprep Draped: Partially | | | draped Anesthesia Method: Local infiltration w/lidocaine Insertion | | | side: Left Insertion Site: Radial Access device: 20g Line | | | secured by:Dressing Applied and StatLock Artery locater technique: | | | Ultrasound Ultrasound image: Printed and placed in patients chart | | | Assessment Number of attempts: 1st Complications: None | | | Assessment: Perfusion checked distal to catheter, Tolerated procedure | | | well and Catheter connected to pressure line and flushed, catheter | | | manually flushed Attending Name: Ayush Leija MD | | | performed by resident Name: Werner Bender MD | | + + + documented in this encounter Visit Diagnoses Not on filedocumented in this encounter Administered Medications + +--------+ +------+------+------+ | Medication Order | MAR | Action | Dose | Rate | Site | | | Action | Date | | | | + +--------+ +------+------+------+ | albuterol 0.083% | Given | 08/04/19 | 3 mL | | | | (PROVENTIL,VENTOLIN) 2.5 mg /3 mL | | 19 5:40 | | | | | (0.083 %) nebulizer solution | | PM PDT | | | | | inhalation, INTRAPROCEDURE PRN, | | | | | | | Starting [facility] 08/03/18 at 1413, | | | | | | | Until [facility] 08/03/18 at 1941 | | | | | | + +--------+ +------+------+------+ +-------+ +------+---+---+ | Given | 08/04/19 | 3 mL | | | | | 19 2:13 | | | | | | PM PDT | | | | +-------+ +------+---+---+ +---+---+ | | | +---+---+ + +-------+ +-----+---+---+ | ceFAZolin (ANCEF) injection 2 g | Given | 08/04/19 | 2 g | | | | 2 g, intravenous, PREPROCEDURE | | 19 4:14 | | | | | ONCE, 1 dose, Starting Clarisa | | PM PDT | | | | | 08/03/18 at 0956, Until Clarisa | | | | | | | 08/03/18 at 1614 | | | | | | + +-------+ +-----+---+---+ +-------+ +-----+---+---+ | Given | 08/04/19 | 2 g | | | | | 19 12:14 | | | | | | PM PDT | | | | +-------+ +-----+---+---+ +---+---+ | | | +---+---+ + +-------+ +------+---+---+ | dexamethasone (DECADRON) | Given | 08/04/19 | 4 mg | | | | injection INTRAPROCEDURE PRN, | | 19 11:44 | | | | | Starting Clarisa 08/03/18 at 1144, | | AM PDT | | | | | Until Clarisa 08/03/18 at 1 | | | | | | + +-------+ +------+---+---+ +---+---+ | | | +---+---+ + +-------+ +------+---+---+ | ePHEDrine injection | Given | 08/04/19 | 5 mg | | | | INTRAPROCEDURE PRN, Starting [facility]isa | | 19 11:51 | | | | | 08/03/18 at 1123, Until Clarisa | | AM PDT | | | | | 08/03/18 at 1940 | | | | | | + +-------+ +------+---+---+ +-------+ +-------+---+---+ | Given | 08/04/19 | 5 mg | | | | | 19 11:30 | | | | | | AM PDT | | | | +-------+ +-------+---+---+ | Given | 08/04/19 | 10 mg | | | | | 19 11:23 | | | | | | AM PDT | | | | +-------+ +-------+---+---+ +---+---+ | | | +---+---+ + +-------+ +---------+---+---+ | fentaNYL (SUBLIMAZE) injection | Given | 08/04/19 | 100 mcg | | | | INTRAPROCEDURE PRN, Starting Clarisa | | 19 11:18 | | | | | 08/03/18 at 1118, Until Clarisa | | AM PDT | | | | | 08/03/18 at 1941 | | | | | | + +-------+ +---------+---+---+ +---+---+ | | | +---+---+ + +-------+ +--------+---+---+ | heparin bolus from continuous | Given | 08/04/19 | 5,000 | | | | infusion intravenous, | | 19 6:32 | Units | | | | INTRAPROCEDURE PRN, Starting [facility]isa | | PM PDT | | | | | 08/03/18 at 1832, Until Clarisa | | | | | | | 08/03/18 at 1941 | | | | | | + +-------+ +--------+---+---+ +---+---+ | | | +---+---+ + +---------+ + + +---+ | heparin in D5W 25,000 Units/250 | New Bag | 08/04/19 | 1,000 | 10 mL/hr | | | mL (100 Units/mL) IV infusion | | 19 7:27 | Units/hr | | | | (RTU) intravenous, | | PM PDT | | | | | INTRAPROCEDURE CONTINUOUS PRN, | | | | | | | Starting Clarisa 08/03/18 at 1927, | | | | | | | Until Clarisa 08/03/18 at 1941 | | | | | | + +---------+ + + +---+ +---+---+ | | | +---+---+ + +-------+ +--------+---+---+ | HYDROmorphone (DILAUDID) | Given | 08/04/19 | 0.2 mg | | | | injection INTRAPROCEDURE PRN, | | 19 7:42 | | | | | Starting [facility]isa 08/03/18 at 1155, | | PM PDT | | | | | Until Clarisa 08/03/18 at 1941 | | | | | | + +-------+ +--------+---+---+ +-------+ +--------+---+---+ | Given | 08/04/19 | 0.2 mg | | | | | 19 7:06 | | | | | | PM PDT | | | | +-------+ +--------+---+---+ | Given | 08/04/19 | 0.2 mg | | | | | 19 6:02 | | | | | | PM PDT | | | | +-------+ +--------+---+---+ +---+---+ | | | +---+---+ + +-------+ +--------+---+---+ | labetalol (TRANDATE) IV | Given | 08/04/19 | 2.5 mg | | | | injection intravenous, | | 19 6:19 | | | | | INTRAPROCEDURE PRN, Starting [facility] | | PM PDT | | | | | 08/03/18 at 1819, Until Clarisa | | | | | | | 08/03/18 at 1940 | | | | | | + +-------+ +--------+---+---+ +---+---+ | | | +---+---+ + +---------+ +---+---+---+ | lactated ringers IV | New Bag | 08/04/19 | | | | | INTRAPROCEDURE CONTINUOUS PRN, | | 19 6:04 | | | | | Starting [facility]isa 08/03/18 at 1105, | | PM PDT | | | | | Until Clarisa 08/03/18 at 1941 | | | | | | + +---------+ +---+---+---+ + + +---+---+---+ | given by anesthesiology | 08/04/19 | | | | | | 19 6:03 | | | | | | PM PDT | | | | + + +---+---+---+ | given by anesthesiology | 08/04/19 | | | | | | 19 4:47 | | | | | | PM PDT | | | | + + +---+---+---+ +---+---+ | | | +---+---+ + + + +---+-------+---+ | lactated ringers IV | Rate/Dos | 08/04/19 | | 250 | | | INTRAPROCEDURE CONTINUOUS PRN, | e Change | 19 6:20 | | mL/hr | | | Starting [facility]isa 08/03/18 at 1118, | | PM PDT | | | | | Until Clarisa 08/03/18 at 1940 | | | | | | + + + +---+-------+---+ +---------+ +---+-------+---+ | New Bag | 08/04/19 | | 100 | | | | 19 11:18 | | mL/hr | | | | AM PDT | | | | +---------+ +---+-------+---+ +---+---+ | | | +---+---+ + +-------+ +-------+---+---+ | lidocaine PF (XYLOCAINE MPF) 20 | Given | 08/04/19 | 60 mg | | | | mg/mL (2 %) injection | | 19 11:19 | | | | | INTRAPROCEDURE PRN, Starting Clarisa | | AM PDT | | | | | 08/03/18 at 1119, Until Clarisa | | | | | | | 08/03/18 at 194 | | | | | | + +-------+ +-------+---+---+ +---+---+ | | | +---+---+ + +-------+ +-----+---+---+ | magnesium sulfate in water IV | Given | 08/04/19 | 2 g | | | | (RTU) intravenous, | | 19 1:20 | | | | | INTRAPROCEDURE PRN, Starting [facility] | | PM PDT | | | | | 08/03/18 at 1320, Until Clarisa | | | | | | | 08/03/18 at 1941 | | | | | | + +-------+ +-----+---+---+ +---+---+ | | | +---+---+ + +-------+ +--------+---+---+ | metoprolol (LOPRESSOR) | Given | 08/04/19 | 2.5 mg | | | | injection intravenous, | | 19 4:08 | | | | | INTRAPROCEDURE PRN, Starting Clarisa | | PM PDT | | | | | 08/03/18 at 1526, Until Clarisa | | | | | | | 08/03/18 at 1941 | | | | | | + +-------+ +--------+---+---+ +-------+ +--------+---+---+ | Given | 08/04/19 | 1.5 mg | | | | | 19 3:28 | | | | | | PM PDT | | | | +-------+ +--------+---+---+ | Given | 08/04/19 | 1 mg | | | | | 19 3:26 | | | | | | PM PDT | | | | +-------+ +--------+---+---+ +---+---+ | | | +---+---+ + +-------+ +------+---+---+ | ondansetron (ZOFRAN) injection | Given | 08/04/19 | 4 mg | | | | INTRAPROCEDURE PRN, Starting Clarisa | | 19 5:36 | | | | | 08/03/18 at 1736, Until Clarisa | | PM PDT | | | | | 08/03/18 at 1940 | | | | | | + +-------+ +------+---+---+ +---+---+ | | | +---+---+ + +-------+ +---------+---+---+ | PHENYLEPHrine 100 mcg/mL IV | Given | 08/04/19 | 100 mcg | | | | syringe INTRAPROCEDURE PRN, | | 19 11:27 | | | | | Starting Clarisa 08/03/18 at 1123, | | AM PDT | | | | | Until Clarisa 08/03/18 at 1941 | | | | | | + +-------+ +---------+---+---+ +-------+ +---------+---+---+ | Given | 08/04/19 | 100 mcg | | | | | 19 11:23 | | | | | | AM PDT | | | | +-------+ +---------+---+---+ +---+---+ | | | +---+---+ + + + + +-------+---+ | PHENYLEPHrine 25 mg/250 mL (0.1 | Rate/Dos | 08/04/19 | 0.1 | 2.88 | | | mg/mL) IV infusion (ADC) | e Change | 19 5:59 | mcg/kg/m | mL/hr | | | intravenous, INTRAPROCEDURE | | PM PDT | in | | | | CONTINUOUS PRN, Starting Clarisa | | | | | | | 08/03/18 at 1133, Until Clarisa | | | | | | | 08/03/18 at 1941 | | | | | | + + + + +-------+---+ + + + +-------+---+ | Rate/Dose Change | 08/04/19 | 0.15 | 4.32 | | | | 19 5:48 | mcg/kg/m | mL/hr | | | | PM PDT | in | | | + + + +-------+---+ | Rate/Dose Change | 08/04/19 | 0.2 | 5.76 | | | | 19 5:36 | mcg/kg/m | mL/hr | | | | PM PDT | in | | | + + + +-------+---+ +---+---+ | | | +---+---+ + +---------+ +-------+---+---+ | propofol (DIPRIVAN) 200 mg | New Bag | 08/04/19 | 60 mg | | | | INTRAPROCEDURE CONTINUOUS PRN, | | 19 11:19 | | | | | Starting [facility] 08/03/18 at 1119, | | AM PDT | | | | | Until [facility] 08/03/18 at 1940 | | | | | | + +---------+ +-------+---+---+ +---+---+ | | | +---+---+ + + + + +-------+---+ | rocuronium (ZEMURON) injection | Rate/Dos | 08/04/19 | 3.5 | 1.01 | | | INTRAPROCEDURE CONTINUOUS PRN, | e Change | 19 2:16 | mcg/kg/m | mL/hr | | | Starting [facility] 08/03/18 at 1141, | | PM PDT | in | | | | Until [facility] 08/03/18 at 1940 | | | | | | + + + + +-------+---+ + + + +-------+---+ | Rate/Dose Change | 08/04/19 | 4 | 1.15 | | | | 19 1:18 | mcg/kg/m | mL/hr | | | | PM PDT | in | | | + + + +-------+---+ | Rate/Dose Change | 08/04/19 | 3 | 0.86 | | | | 19 12:00 | mcg/kg/m | mL/hr | | | | PM PDT | in | | | + + + +-------+---+ +---+---+ | | | +---+---+ + +-------+ +-------+---+---+ | rocuronium (ZEMURON) injection | Given | 08/04/19 | 40 mg | | | | INTRAPROCEDURE PRN, Starting Clarisa | | 19 11:20 | | | | | 08/03/18 at 1120, Until Clarisa | | AM PDT | | | | | 08/03/18 at 1941 | | | | | | + +-------+ +-------+---+---+ +---+---+ | | | +---+---+ + +-------+ +-----+---+---+ | vancomycin (VANCOCIN) injection | Given | 08/04/19 | 1 g | | | | INTRAPROCEDURE PRN, Starting | | 19 11:45 | | | | | [facility]isa 08/03/18 at 1145, Until Clarisa | | AM PDT | | | | | 08/03/18 at 1941 | | | | | | + +-------+ +-----+---+---+ +---+---+ | | | +---+---+ documented in this encounter"
--- OUTSIDE RECORDS SUMMARY | ~2019-10-22 | XMS | Encounter Summary ---
Demographics + + + | Address | [address] | | | [place] [address] | + + + | Home Phone | | + + + | Preferred Language | Unknown | + + + | Marital Status | | + + + | Taoist Affiliation | MET | + + + | Race | White | + + + | Ethnic Group | Not or | + + + Author + + + | Author | [facility] | + + + | Organization | [facility] | + + + | [...] Team Providers + +------+ + | Care Physics Teacher Name | Role | Phone | + [...] + + | 03/02/ | Emergency | [facility] | | | | 2008 - | | Department [address] | | | | | | [address] | | | | 03/03/ | | [facility] | | | | 2008 | | [place], [place] | | | | | | [address] | | | | | | [phone] | | | +--------+ + + + [...]
--- OUTSIDE RECORDS SUMMARY | ~2019-10-22 | XMS | Encounter Summary ---
Demographics + + + | Address | [address] | | | [place] [address] | + + + | Home Phone | | + + + | Preferred Language | Unknown | + + + | Marital Status | | + + + | Restorationism Affiliation | MET | + + + | Race | White | + + + | Ethnic Group | Not or | + + + Author + + + | Author | [facility] | + + + | Organization | [facility] | + + + | Address [...] Team Providers + +------+ + | Care Senior Executive Assistant Name | Role | Phone | + +------+ + PCP | Unavailable | + +------+ + Reason for Visit + +--------+ + | Reason | Onset | Comments | | | Date | | + +--------+ + | Pre-operative | 03/22/ | | | evaluation | 2009 | | + +--------+ + Encounter Details +--------+ + + + + | Date | Type | Department | Care Team | Description | +--------+ + + + + | 03/22/ | Telephone | Neurosurgery at | Paramjit Huber MD | Pre-operative | | 2008 | | [facility] [address] | [address] | evaluation | | | | [facility] | [place], [place] | | | | | [facility], | [address] | | | | | [facility] | [phone] | | | | | floor [place], [place] | | | | | | [address] | | | | | | [phone] | | | +--------+ + + + [...] this encounter Miscellaneous Notes Telephone Encounter - Aline Duvall - 03/22/2008 9:53 AM PSTPlease fax pre-op orders for p t to Dr. Luis Manuel Baker at [phone] signed by Aline Duvall at 03/22/2008 9:53 AM PSTdocumented in this encounter Plan of Treatment Not on filedocumented as of this encounter Visit Diagnoses + + | Diagnosis | + + | Communicating hydrocephalus (HCC) Communicating hydrocephalus | + + | SAH (subarachnoid hemorrhage) (HCC) Subarachnoid hemorrhage | + + documented in this encounter"
--- OUTSIDE RECORDS SUMMARY | ~2019-10-22 | XMS | Encounter Summary ---
Demographics + + + | Address | [address] | | | [place] [address] | + + + | Home Phone | | + + + | Preferred Language | Unknown | + + + | Marital Status | | + + + | Yazdanism Affiliation | MET | + + + | Race | White | + + + | Ethnic Group | Not or | + + + Author + + + | Author | [facility] | + + + | Organization | [facility] | + + + | Address [...] Providers + +------+ + | Care Food Truck Caterer Name | Role | Phone | + +------+ + | Anil Baker DO | PCP | | + +------+ + Reason for Visit + + + | Reason | Comments | + + + | Wound infection | | + + + Encounter Details +--------+ + + + + | Date | Type | Department | Care Team | Description | +--------+ + + + + | 04/29/ | Emergency | [facility] Emergency | Jim Smith MD | | | 2008 | | Department [address] | [address] | | | | | [address] | [address] [place], | | | | | [facility] | [place] [address] | | | | | [place], [place] | [phone] | | | | | [address] | | | | | | [phone] | | | +--------+ + + + [...] + + + | Blood Pressure | 116/57 | 04/29/2008 10:05 PM | | | | | PDT | | + + + + + | Pulse | 82 | 04/29/2008 10:05 PM | | | | | PDT | | + + + + + | Temperature | 36.6 C (97.9 F) | 04/29/2008 10:05 PM | | | | | PDT | | + + + + + | Respiratory Rate | 16 | 04/29/2008 10:05 PM | | | | | PDT | | + + + + + | Oxygen Saturation | 95% | 04/29/2008 10:05 PM | | | | | PDT | | + + + + + | Inhaled Oxygen | - | - | | | Concentration | | | | + + + + + | Weight | - | - | | + + + + + | Height | - | - | | + + + + + | Body Mass Index | - | - | | + + + + + documented in this encounter Discharge Summaries Other, Faculty - 04/29/2008 11:29 PM PDT documented in this encounter Discharge Instructions Instructions Jim Smith MD - 04/29/2008Wound Infection You have developed an infection of your wound. This has happened because bacteria (germs) h ave started growing in the wound. All wounds have some bacteria in them. An infection can oc cur when the skin has been damaged either by accident or surgically. A surgical example of t his would be when your caregiver cuts your skin to remove a mole. If stitches need to be rem cal, and a wound infection develops, the stitches may have to be removed early. This means that the entire wound may break apart. This may look terrible to you but it is not dangerous . It is an inconvenience easily handled by your caregiver. If it would happen on an abdomina l (belly) wound, you do not have to worry - the contents of your belly will not fall out. HOME CARE INSTRUCTIONS Rinse your wound with warm, soapy water four times per day, or as directed by your careg iver. When through washing, gently pat the wound dry with a soft fabric. As the wound is healing, millions of tiny new blood vessels are forming. Do not rub the wound. This may cause bleedi ng. Apply dressing to wound as directed. You may take acetaminophen (Tylenol) or ibuprofen (Advil or Motrin) for pain and disc omfort or as instructed by your caregiver. Do not soak wound, as in bathing or swimming, until it is healed or as directed by your car billie. Avoid work out exercises that make you sweat heavily. During healing the wound may itch. You may use over the counter antihistamines such as [place] dryl (diphenhydramine) in a dosage as recommended on package. If this medication makes you sleepy then take it as a dose at bedtime. If your caregiver has prescribed antibiotics (a medication that kills germs), take your med ication as directed. Take it for the entire length of time it was prescribed, even if the wo und appears to be doing well. call OR SEE YOUR CAREGIVER IF: There is increased swelling or increased pain near the wound. There is increasing inflammation (redness) around the wound. There is an increase in the amount of pus coming from the wound. An unexplained oral temperature above 102 F (38.9 C) develops. More of the wound breaks open if only a small number of the stitches were removed. Return to your caregiver's office in in 7 days or as directed to have your wound rechecked. ExitCare Patient Information 2006 [employer]. documented in this encounter H&P Notes Krystle Tejeda Md - 04/29/2008 8:34 PM PDT NEUROSURGERY CONSULT HISTORY AND PHYSICAL Author: KRYSTLE TEJEDA Attending Physician: Jim Smith MD Reason for consult: Redness on skin of VPS Consulting attending: Cecile PCP: Anil Baker DO HPI: A 58 yof s/p SAH and aneurysm clipping. S/p R VPS placement on 04/12/08. Had been doing relatively well and presented today to the clinic for concern about redness and itching ove r the incision of the VPS. No discharge from the incision no dehiscence. Past Medical History Diagnosis Date GERD (Gastroesophageal Reflux Disease) HTN Nicotine Addiction COPD Otitis Media recent abx preadmit Chronic Pain Allergies Allergen Reactions Cipro (Ciprofloxacin) Sulfa (Sulfonamides) [...] family history on file. Physical Exam: BP 118/50 | Pulse 85 | Temp 36.6 C (97.9 F) | Resp 18 | SpO2 94% Systolic (24hrs), Av mmHg, Min:111 mmHg, Max:130 mmHg Diastolic (24hrs), Av mmHg, Min:50 mmHg, Max:69 mmHg Pulse Av.7 Min: 85 Max: 90 Temp Av.6 C (97.8 F) Min: 36.5 C (97.7 F) Max: 36.6 C (97.9 F) Resp Av.3 Min: 16 Max: 18 SpO2 Av.0 % Min: 94 % Max: 99 % General Appearance: Neurologic: Patient is A+Ox3, PERRLA, EOMI, VFF, Face symmetric, Hearing intact to rub, V1-V3 intact, t ongue ML, Uvula central elevated, shruggs both shoulders. Her motor exam is 5/5 allover, normal bulk and tone, normal FFM. Sensations are ILT, normal cortical and deep sensations as well as Pin prick. Reflexes are 2/4 allover. Cerebellar exam is normal for FTN test and CHAYO test. Incision are dry intact clean but with erythema surrounding the edges of the incision.s on the neck and abdomen. Lab Results Lab Test Name Results Date/Time WBC 9.5 03/05/08 RBC 3.66 03/05/08 HCT 33.6 03/05/08 HB 11.4 03/05/08 MCV 91.6 03/05/08 MCHC 33.9 03/05/08 PLT 388 03/05/08 NEUTROPERC 91 10/19/07 LYMPHPERC 7 10/19/07 MONOPERC 2 10/19/07 EOSPERC 0 10/19/07 BASOPERC 0 10/19/07 GLU 84 03/05/08 BUN 16 03/05/08 CR 0.92 03/05/08 TP 7.4 03/03/08 ALB 3.1 03/03/08 CA 8.1 03/05/08 TBILI 0.7 03/03/08 AP 97 03/03/08 AST 12 03/03/08 NA 145 03/05/08 K 4.0 03/05/08 CL 111 03/05/08 BICARB 25 03/05/08 ALT 14 03/03/08 INR 1.05 03/03/08 AP: A 58 yof , s/p VPS placement after PHH and aneurysm clipping. POD 17. ? Superficial ski n infection versus colonization anf infection on shunt tubing. Will tapn the shunt to r/o in fection. Will follow, if positive gram stain will admit, if negative will send home on Abx p ending cultures. documented in this encou nter ED Notes Idalmis Anderson RN - 04/29/2008 11:27 PM PDTRN DISCHARGE NOTE: The patient verbalizes understanding of written discharge/home care instructions as a evide nced by Follow-up plan of care reviewed w/ patient, Pt voiced understanding of plan of care, Written dx instructions reviewed w/ patient, Extended patient education and Patient advised not to drive. The patient was discharged Ambulatory via Private Vehicle with family in no emergent distress. Jim Aldana MD - 04/29/2008 11:24 PM PDTFormatting of this note might be different from the orig inal. 58 y/o female c/o headache seen today in nsurg clinic found to have inflmed neck and abd wo unds 2 weeks s/p vps for hc. Had aneurysm clipping last fall. No fever cp sob or vomiting. N o visual changes or syncope. Otherwise complete ros neg. 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 , Disp: 30, Rfl: 0 oxycodone (immediate release) 5 mg Oral Tablet, Take 3 Tabs by mouth every six hours as nee ded , Disp: 30, Rfl: 0 oxycodone immediate release Oral Tablet, Take 7.5-15 mg by mouth every three hours as neede d for severe pain. , Disp: 40, Rfl: 0 pravastatin 20 mg Oral Tablet, take 2 tablets (40 mg) by oral route once daily, Disp: 30, R fl: 1 senna-docusate 8.6-50 mg Oral Tablet, Take 1 Tab by mouth two times daily. , Disp: 120, Rfl : 0 Allergies Allergen Reactions Cipro (Ciprofloxacin) Sulfa (Sulfonamides) Codeine Hcl I have reviewed the medications, allergies, past medical history, social history no smokin g, and family history no neuro issues. PE ED Triage Vitals Enc Vitals Group BP 04/29 1550 130/63 mmHg Pulse 04/29 1550 88 Resp 04/29 1550 16 Temp 04/29 1550 36.5 C Temp src -- SpO2 04/29 1550 95 % Wt - Scale -- Height -- Head Cir -- Peak Flow -- Pain Score -- Pain Loc -- Pain Edu? -- Excl. in GC? -- non toxic no respiratory distress HEENT NC At EOMI PERRLA face symmetrical surgical scar well healed Neck: supple no LAD/bruits/JVD neck surgical site red and indurated Chest: CTAB non-tender RRR no murmur or gallop Abd: soft nt nd no HSM NABS surgical wound inflamed Ext: pulses 2+ = no C/C/E Neuro: A & O x 4 Motor 5/5 throughout DTRs 2+ = no ataxia Skin: W&D no rash EDC: triage to acute, nursing/note(s) reviewed. Labs: Results for orders placed during the hospital encounter of 04/29/2008 CT HEAD WO CONTRAST Component Value Range CT HEAD WO CONTRAST - Value: Noncontrast head CT 04/29/08 Clinical history: Evaluate for shunt malfunction. Technique: 6 mm thick axial images were obtained through the brain, and reviewed in bone and soft tissue windows. Findings: Comparison is made to the prior head CT dated 03/03/08. There are unchanged surgical findings related to previous right orbital frontal craniotomy and aneurysm clipping. Beam hardening artifact partly obscures underlying brain parenchyma. There has been interim placement of a right frontal approach ventriculostomy tube, with the tip terminating in the anterior third ventricle. There is less rounding of the frontal and temporal horns since prior study and mild decrease in ventricular size. No significant hemorrhagic complication is appreciated. Mild periventricular confluent hypodensity is seen, though is less than on previous exam. No significant midline shift is present. Basal cisterns are patent. There is partial left sphenoid sinus opacification new since prior. Impression: Post right frontal ventriculostomy placement, with the tip in the anterior third ventricle. Mild interim decrease in ventricular size since the 03/03/08 CT. Increasing sphenoid sinus inflammatory changes. I have personally viewed this procedure/exam and reviewed this report. Author: BOBBI LOCKWOOD M.D. Reviewer: BOBBI LOCKWOOD M.D. STATUS FINAL / Dr. BOBBI LOCKWOOD X-RAY SHUNT EVAL SKULL, CHEST AND ABD 2 VIEWS Component Value Range X-RAY SHUNT EVAL SKULL, CHEST AND ABD 2 VIEWS - Value: PRESSROOM FOREMAN SHUNT SERIES COMPARISON: NONE FINDINGS: Multiple views of the skull, frontal view of the chest and abdomen, and lateral view of the chest and abdomen were obtained. A ventriculoperitoneal shunt is present, via right parietal access with its tip midline. The shunt courses along the right neck and anterior thorax. It enters the abdomen in the right upper quadrant, with the tip in the right lower abdomen. The shunt appears continuous throughout its course. There is no mass effect in the region of the distal tip. The lungs are clear, and the heart is normal in size. The bowel gas pattern is nonobstructive. No abnormal calcifications are seen in the abdomen or pelvis. No osseous abnormality is seen. IMPRESSION: No evidence of shunt disruption. END OF IMPRESSION I have personally viewed this procedure/exam and reviewed this report. Author: JULIETTE YODER M.D. Reviewer: JULIETTE YODER M.D. STATUS FINAL / Dr. JULIETTE YODER GLUCOSE, CSF Component Value Range GLUCOSE CSF 78 (*) 40-70 (mg/dL) PROTEIN, CSF Component Value Range TOTAL PROTEIN CSF 57 (*) 15-45 (mg/dL) CELL COUNT DIFF, CSF Component Value Range CSF WBC 625 (*) < 6- (/cu mm) CSF RBC 800 - (/cu mm) DIFFERENTIAL CSF 100 - SEGMENTED NEUTROPHIL(CSF) 75 (*) < 7- (%) LYMPHOCYTES(CSF) 12 (*) 40-80 (%) MONOCYTES(CSF) 5 (*) 15-45 (%) EOSINOPHILS(CSF) 8 - (%) GRAM SMEAR ONLY, STAT Component Value Range GRAM SMEAR ONLY-[facility] - Value: Many White blood cells present No organisms seen. SMEAR PREPARATION Gram Smear by cytospin - SOURCE BODY SITE CSF - CSF INFO PANEL Component Value Range CSF APPEARANCE Sl Cldy Clear- CSF COLOR Colorless Colorless- CSF TUBE NUMBER 1 Sent - Labs inclucidn g csf with only pleocytosis nos; Radiographs: head ct and plain films improved ; Consults: Nsurg who tapped the shunt Treatment: po clinda and pain meds A/P woundinfx Usual and customary pre-printed d/c instructions for wound infx. F/U: nsurg next week New meds: New Prescriptions CLINDAMYCIN 150 MG ORAL CAPSULE Take 2 Caps by mouth three times daily. OXYCODONE (IMMEDIATE RELEASE) 5 MG ORAL TABLET Take 3 Tabs by mouth every six hours as needed Idalmis Naik RN - 10/2008 8:56 PM PDTNeurosurg done tapping shunt. Pt resting flat on stretcher. Idalmis Naik RN - 04/29/2008 8:10 PM PDTWaiting for NS to come tap shunt. onnell Salazar - 04/29/2008 7:45 PM PDTBed: 04RS
Expected date:
Expected t nella:
Means of arrival:
Comments:
[facility] Linda Alva - 04/29/2008 5:[address] with transporter Evelina Pacheco - 04/29/2008 3:54 PM PDTPt had shunt place s/p bleed in september. Pt sent h ere for eval of shunt fx. Pt denies posadas, pt's behavior ok per baseline, per family. Pt alert and oriented x 4, pt needs assist with ambulation, ok per baseline since bleed. Pt's vss.Avani ctronically signed by Evelina Kline at 04/29/2008 3:55 PM PDTdocumented in this encounter Miscellaneous Notes Scan - Other, Faculty - 04/29/2008 11:29 PM PDT ED Teaching Notes - Jim Smith MD - 11:23 PM PDTTeaching note not needed. D Teaching Notes - Jim Boateng MD - 04/29/2008 11:08 PM PDTTeaching note not needed. P RN Student Note - Ayush Burdick RN - 04/29/2008 6:40 PM PDTPt presents to ed c/o of POSADAS and weakness 2 wks po stop for shunt placement. Pt returned to [facility] today for eval and was referred to ED by neur osurgery because "the shunt didn't look good". Hx of surgery for brain aneurysm last September . Pt states the shunt incisions on R neck and abd itched and she scratched them. Incisions are erythemic and warm to touch. No exudate. Denies blurred vision. CSM intact in extrem ities x 4. [place] stroke scale neg. Skin pwd. Pt BONILLA with at bedside.Electron ically signed by Ayush Gonzalez RN at 04/29/2008 6:47 PM PDTdocumented in this encounter Plan of Treatment Not on filedocumented as of this encounter Procedures + +--------+ + + + | Procedure Name | Priori | Date/Time | Associated Diagnosis | Comments | | | ty | | | | + +--------+ + + + | CSF INFO PANEL | Urgent | 04/29/2008 | | Results for this | | | | 8:31 PM | | procedure are in the | | | | PDT | | results section. | + +--------+ + + + | GLUCOSE, CSF | Urgent | 04/29/2008 | | Results for this | | | | 8:31 PM | | procedure are in the | | | | PDT | | results section. | + +--------+ + + + | CELL COUNT DIFF, CSF | Urgent | 04/29/2008 | | Results for this | | | | 8:31 PM | | procedure are in the | | | | PDT | | results section. | + +--------+ + + + | CULTURE, CSF BACTI | Urgent | 04/29/2008 | | Results for this | | | | 8:31 PM | | procedure are in the | | | | PDT | | results section. | + +--------+ + + + | GRAM SMEAR ONLY, | Urgent | 04/29/2008 | | Results for this | | STAT | | 8:31 PM | | procedure are in the | | | | PDT | | results section. | + +--------+ + + + | PROTEIN, CSF | Urgent | 04/29/2008 | | Results for this | | | | 8:31 PM | | procedure are in the | | | | PDT | | results section. | + +--------+ + + + | CT HEAD WO CONTRAST | Urgent | 04/29/2008 | | Results for this | | | | 6:00 PM | | procedure are in the | | | | PDT | | results section. | + +--------+ + + + | X-RAY SHUNT EVAL | Urgent | 04/29/2008 | | Results for this | | SKULL, CHEST AND ABD | | 5:23 PM | | procedure are in the | | 2 VIEWS | | PDT | | results section. | + +--------+ + + + documented in this encounter Results CSF INFO PANEL (04/29/2008 8:31 PM PDT) + + + + + + | Component | Value | Ref Range | Performed | Pathologist | | | | | At | Signature | + + + + + + | CSF | Sl Cldy | Clear | [facility] | | | [...] Performed At | + + + | Specimen is syringe | [facility] | | | DEPARTMENT OF | | | PATHOLOGY | + + + + + + + + | Performing | Address | City/State/Zipcode | Phone Number | | Organization | | | | + + + + + | [facility] | [address] | [place] [address] | | | PATHOLOGY | [address] | | | + + + + + | [facility] | [address] | [place] [address] | | | PATHOLOGY | [address] | | | + + + + + GRAM OSWALDO ONLY, STAT (04/29/2008 8:31 PM PDT) + + + + + + | Component | Value | Ref Range | Performed | Pathologist | | | | | At | Signature | + + + + + + | GRAM SMEAR | Many White blood cells | | [facility] | [...] | + + + + + | [facility] DEPARTMENT | [address] | [place] [address] | | | PATHOLOGY | [address] | | | + + + + + | [facility] | [facility] | [place] [address] | | | PATHOLOGY | [address] | | | + + + + + CELL COUNT DIFF, CSF (04/29/2008 8:31 PM PDT) + +---------+ + + + | Component | Value | Ref Range | Performed | Pathologist | | | | | At | Signature | + +---------+ + + + | CSF WBC | 625 (*) | <6 /cu mm | [facility] | | | | | | DEPARTMENT | | | | | | OF | | | | | | PATHOLOGY | | + +---------+ + + + | CSF RBC | 800 | /cu mm | [facility] | | | | | | DEPARTMENT | | | | | | OF | | | | | | PATHOLOGY | | + +---------+ + + + | DIFFERENTIA | 100 | | [facility] | | | L CSF | | | DEPARTMENT | | | | | | OF | | | | | | PATHOLOGY | | + +---------+ + + + | NEUTROPHIL( | 75 (H) | <7 % | [facility] | | | CSF) | | | DEPARTMENT | | | | | | OF | | | | | | PATHOLOGY | | + +---------+ + + + | LYMPHOCYTES | 12 (L) | 40 - 80 % | [facility] | | | (CSF) | | | DEPARTMENT | | | | | | OF | | | | | | PATHOLOGY | | + +---------+ + + + | MONOCYTES(C | 5 (L) | 15 - 45 % | [facility] | | | SF) | | | DEPARTMENT | | | | | | OF | | | | | | PATHOLOGY | | + +---------+ + + + | EOSINOPHILS | 8 | % | [facility] | | | (CSF) | | | DEPARTMENT | | | | | | OF | | | | | | PATHOLOGY | | + +---------+ + + + + + | Specimen | + + | Cerebrospinal fluid | + + + + + | Narrative | Performed At | + + + | Specimen is syringe | [facility] | | | DEPARTMENT OF | | | PATHOLOGY | + + + + + + + + | Performing | Address | City/State/Zipcode | Phone Number | | Organization | | | | + + + + + | [facility] DEPARTMENT OF | [facility] | [place] [address] | | | PATHOLOGY | [address] | | | + + + + + | [facility] DEPARTMENT OF | [facility] | [place] [address] | | | PATHOLOGY | [address] | | | + + + + + CULTURE, CSF BACTI (04/29/2008 8:31 PM PDT) + + + + + [...] at | | | | | | [facility]. Culture: | | | | | | Rare | | | | | | Methicillin resistant | | | | | | Staphylococcus aureus | | | | | | Final ID | | | | | | MRSA | | | | | | Cefazolin | | | | | | R Clindamycin | | | | | | S Erythromycin | | | | | | R Oxacillin | | | | | | R | | | | | | Penicillin | | | | | | R Tetracycline | | | | | | S Trimeth/Sulfa | | | | | | S Vancomycin | | | | | | S Final | | | | | | ReportComment: Test | | | | | | performed at [facility] | | | | | | [facility] | | | | | | Laboratory. | | | | + + + + + + + + | Specimen | + + | Cerebrospinal fluid | + + + + + + + | Performing | Address | City/State/Zipcode | Phone Number | | Organization | | | | + + + + + | [facility] | [address] | [place] [address] | | | LAB-MICRO | | | | + + + + + PROTEIN, CSF (04/29/2008 8:31 PM PDT) + +--------+ + + + | Component | Value | Ref Range | Performed | Pathologist | | | | | At | Signature | + +--------+ + + + | TOTAL | 57 (H) | 15 - 45 mg/dL | [facility] | | | PROTEIN CSF | | | DEPARTMENT | | | | | | OF | | | | | | PATHOLOGY | | + +--------+ + + + + + | Specimen | + + | Cerebrospinal fluid | + + + + + | Narrative | Performed At | + + + | Specimen is syringe | [facility] | | | DEPARTMENT OF | | | PATHOLOGY | + + + + + + + + | Performing | Address | City/State/Zipcode | Phone Number | | Organization | | | | + + + + + | [facility] DEPARTMENT OF | [address] | [place] [address] | | | PATHOLOGY | [address] | | | + + + + + | [facility] DEPARTMENT OF | [address] | [place] [address] | | | PATHOLOGY | [address] | | | + + + + + GLUCOSE, CSF (04/29/2008 8:31 PM PDT) + +--------+ + + + [...] fluid | + + + + + | Narrative | Performed At | + + + | Specimen is syringe | [facility] | | | DEPARTMENT OF | | | PATHOLOGY | + + + + + + + + | Performing | Address | City/State/Zipcode | Phone Number | | Organization | | | | + + + + + | [facility] | [address] | [place] [address] | | | PATHOLOGY | [address] | | | + + + + + | [facility] | [address] | [place] [address] | | | PATHOLOGY | [address] | | | + + + + + CT HEAD WO CONTRAST (04/29/2008 6:00 PM PDT) + + + + + + | Component | Value | Ref Range | Performed | Pathologist | | | | | At | Signature | + + + + + + | CT HEAD WO | Noncontrast head CT | | | | | CONTRAST | 04/29/08Clinical history: | | | | | | Evaluate for shunt | | | | | | malfunction.Technique: 6 | | | | | | mm thick axial images | | | | | | were obtained through | | | | | | the brain,and reviewed | | | | | | in bone and soft tissue | | | | | | windows.Findings: | | | | | | Comparison is made to | | | | | | the prior head CT dated | | | | | | 03/03/08.There are | | | | | | unchanged surgical | | | | | | findings related to | | | | | | previous rightorbital | | | | | | frontal craniotomy and | | | | | | aneurysm clipping. | | | | | | Beam hardeningartifact | | | | | | partly obscures | | | | | | underlying brain | | | | | | parenchyma. There has | | | | | | beeninterim placement of | | | | | | a right frontal | | | | | | approach ventriculostomy | | | | | | tube,with the tip | | | | | | terminating in the | | | | | | anterior third | | | | | | ventricle. There | | | | | | isless rounding of the | | | | | | frontal and temporal | | | | | | horns since prior study | | | | | | andmild decrease in | | | | | | ventricular size. No | | | | | | significant | | | | | | hemorrhagiccomplication | | | | | | is appreciated. Mild | | | | | | periventricular | | | | | | confluenthypodensity is | | | | | | seen, though is less | | | | | | than on previous exam. | | | | | | Nosignificant midline | | | | | | shift is present. | | | | | | Basal cisterns are | | | | | | patent.There is partial | | | | | | left sphenoid sinus | | | | | | opacification new since | | | | | | prior.Impression: Post | | | | | | right frontal | | | | | | ventriculostomy | | | | | | placement, with thetip | | | | | | in the anterior third | | | | | | ventricle. Mild | | | | | | interim decrease | | | | | | inventricular size since | | | | | | the 03/03/08 CT. | | | | | | Increasing sphenoid | | | | | | sinusinflammatory | | | | | | changes.I have | | | | | | personally viewed this | | | | | | procedure/exam and | | | | | | reviewed this | | | | | | report.Author: BOBBI Pettit | | | | | | Narinder LOCKWOODReviewer: | | | | | | BOBBI LOCKWOOD | | | | | | NarinderSTATUS FINAL / Dr. | | | | | | BOBBI LOCKWOOD | | | | + + + + + + + + | Specimen | + + | | + + + +---------+ + + | Performing | Address | City/State/Zipcode | Phone Number | | Organization | | | | + +---------+ + + | [facility] DEPARTMENT OF | | | | | RADIOLOGY | | | | + +---------+ + + X-RAY SHUNT EVAL SKULL, CHEST AND ABD 2 VIEWS (04/29/2008 5:23 PM PDT) + + + + + + | Component | Value | Ref Range | Performed | Pathologist | | | | | At | Signature | + + + + + + | X-RAY SHUNT | PRESSROOM FOREMAN SHUNT | | | | | EVAL | SERIESCOMPARISON: | | | | | SKULL, | NONEFINDINGS:Multiple | | | | | CHEST AND | views of the skull, | | | | | ABD 2 VIEWS | frontal view of the | | | | | | chest and abdomen,and | | | | | | lateral view of the | | | | | | chest and abdomen were | | | | | | obtained.A | | | | | | ventriculoperitoneal | | | | | | shunt is present, via | | | | | | right parietal | | | | | | accesswith its tip | | | | | | midline. The shunt | | | | | | courses along the right | | | | | | neck andanterior thorax. | | | | | | It enters the abdomen | | | | | | in the right upper | | | | | | quadrant,with the tip in | | | | | | the right lower | | | | | | abdomen. The shunt | | | | | | appears | | | | | | continuousthroughout its | | | | | | course. There is no | | | | | | mass effect in the | | | | | | region of thedistal | | | | | | tip.The lungs are clear, | | | | | | and the heart is normal | | | | | | in size. The bowel | | | | | | gaspattern is | | | | | | nonobstructive. No | | | | | | abnormal calcifications | | | | | | are seen in theabdomen | | | | | | or pelvis. No osseous | | | | | | abnormality is | | | | | | seen.IMPRESSION:No | | | | | | evidence of shunt | | | | | | disruption.END OF | | | | | | IMPRESSIONI have | | | | | | personally viewed this | | | | | | procedure/exam and | | | | | | reviewed this | | | | | | report.Author: JULIETTE | | | | | | Narinder YODERReviewer: | | | | | | JULIETTE YODER M.D.STATUS | | | | | | FINAL / Dr. JULIETTE YODER | | | | + + + + + + + + | Specimen | + + | | + + + +---------+ + + | Performing | Address | City/State/Zipcode | Phone Number | | Organization | | | | + +---------+ + + | [facility] | | | | [facility] | | | | + +---------+ + + documented in this encounter Visit Diagnoses + + | Diagnosis | + + | Wound infection Posttraumatic wound infection not elsewhere classified | + + documented in this encounter Administered Medications + +--------+ +--------+------+------+ | Medication Order | MAR | Action | Dose | Rate | Site | | | Action | Date | | | | + +--------+ +--------+------+------+ | clindamycin (aka CLEOCIN) | Given | 04/30/19 | 300 mg | | | | capsule 300 mg 300 mg, oral, | | 09 11:15 | | | | | ONCE, 1 dose, 04/29/08 at 2315 | | PM PDT | | | | + +--------+ +--------+------+------+ +---+---+ | | | +---+---+ + +-------+ +-------+---+---+ | oxycodone immediate release | Given | 04/30/19 | 15 mg | | | | (aka ROXICODONE) tablet 15 mg 15 | | 09 7:30 | | | | | mg, oral, ONCE, 1 dose, Mon | | PM PDT | | | | | 04/29/08 at 1930 | | | | | | + +-------+ +-------+---+---+ +---+---+ | | | +---+---+ documented in this encounter
--- OUTSIDE RECORDS SUMMARY | ~2019-10-22 | XMS | Encounter Summary ---
Demographics + + + | Address | [address] | | | [place] [address] | + + + | Home Phone | | + + + | Preferred Language | Unknown | + + + | Marital Status | | + + + | Mu-Ism Affiliation | MET | + + + | Race | White | + + + | Ethnic Group | Not or | + + + Author + + + | Author | [facility] | + + + | Organization | [facility] | + + + | Address [...] Team Providers + +------+ + | Care Digital Strategy Specialist Name | Role | Phone | + +------+ + | Remington Camacho MD | PCP | | + +------+ + Reason for Visit +--------+ + | Reason | Comments | +--------+ + | Preop | | +--------+ + Encounter Details +--------+---------+ + + + | Date | Type | Department | Care Team | Description | +--------+---------+ + + + | 06/06/ | Office | Otolaryngology | Beny Cruz, | Benign neoplasm of | | 2015 | Visit | Head and Neck | [address] | major salivary | | | | Surgery Services at | [facility] [address] | glands (Primary Dx) | | | | [facility] [address] | [place], [place] | | | | | [address] | [address] | | | | | Physician's | [phone] | | | | | [place], [address] floor | | | | | | [place], [place] | | | | | | [address] | | | | | | [phone] | | | +--------+---------+ + + + Social History + + + +--------+------+ | Tobacco Use | Types | Packs/Day | Years | Date | | | | | Used | | + + + +--------+------+ | Current Every Day | Cigarettes | 1.5 | 47 | | | Smoker | [...] + + + | Blood Pressure | 150/80 | 06/06/2014 2:16 PM | | | | | PDT | | + + + + + | Pulse | 84 | 06/06/2014 2:16 PM | | | | | PDT | | + + + + + | Temperature | - | - | | + + + + + | Respiratory Rate | - | - | | + + + + + | Oxygen Saturation | 96% | 06/06/2014 2:16 PM | | | | | PDT | | + + + + + | Inhaled Oxygen | - | - | | | Concentration | | | | + + + + + | Weight | 53.5 kg (118 lb) | 06/06/2014 2:16 PM | | | | | PDT | | + + + + + | Height | 149.9 cm (4' 11") | 06/06/2014 2:16 PM | | | | | PDT | | + + + + + | Body Mass Index | 23.83 | 06/06/2014 2:16 PM | | | | | PDT | | + + + + + documented in this encounter Progress Notes Beny Cruz MD - 06/06/2014 8:33 AM PDTSee H&P Beny Cruz MD Professor of Otolaryngology, Head & Neck Surgery documented in this en counter H&P Notes Beny Cruz MD - 06/06/2014 8:33 AM PDTSheryl Maricarmen Bell is a 64 y.o. female Here for preop visit for a right parotidectomy. I had a complete discussion of the surgery its alternatives and risks. Including but not limited to bleeding, infection, the planned op erative incision, the need for drains postoperatively, anesthesia of the skin of the neck, r isk of injury to various cranial nerves, and impact of the surgery on speech and swallowing. She seemed to understand same and wishes to proceed. A complete physical exam was performed , consent form was signed. Beny Cruz MD Professor of Otolaryngology, Head & Neck Surgery Progress Notes by Beny Cruz MD at 06/06/2014 8:30 AM Author: Beny Cruz MD Service: (none) Author Type: Physician Filed: 06/06/2014 8:32 AM Note Time: 06/06/2014 8:30 AM Status: Signed Senior Java Engineer: Beny Cruz MD (Physician) Please see Dr. Sunshine's note for the complete details of the history and physical exam. I r eviewed the resident's findings and repeated these components of the physical exam: complete history, review of systems, review of medications, complete examination of the head and nec k and review of imaging and pathology. 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 I had a long discussion with Ms. Bell. 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 I explained that in most circumstances the diagnostic studies that have been performed so far are reliable and therefore she can base her decision on the expectation that this is ind eed a benign tumor however there is a possibility of the studies being in error and the lesi on of turning out to be a malignancy, although the chances of this are low. We discussed that in most cases of benign parotid tumors are not fast-growing, but if they are not cared for they can grow very slowly and relentlessly over a number of years to becom e quite large. There are also some reports of benign parotid tumors becoming malignant. We discussed that in general the treatment of benign parotid tumors is surgical. That surg shanell consists of removal of the tumor and a portion of the normal salivary gland surrounding the tumor in order to guarantee complete removal of tumor. We discussed that the facial nerv e courses through the parotid gland and there is some risk of injury to the nerve during the procedure. The best way to avoid this is to definitively identify the nerve and trace out the nerve branches while the tumor is being removed. If the procedure is done in this way t he risk of permanent facial nerve injury is quite low, somewhere near 1%. There is however a risk of temporary facial weakness which may approach 15 to 20%. This weakness may be mild or severe, it may affect only one or several branches or it may affect the entire side of t he face. If such weakness does occur after the operation it generally is self-limiting and will resolve completely within several weeks to several months. We discussed the procedure of superficial parotidectomy including the planned operative inc ision, the risk of some contour deformity to the side of the face that is being operated upo n, the need for a drain postoperatively, and we also discussed the fact that there would be an area of anesthesia of the skin of the face that involves the preauricular area, generally the lower two thirds of the ear and some of the upper part of the neck. We discussed that this anesthesia generally improves with time but will probably never completely go away. We also discussed the possibility of webb's syndrome developing postoperatively. Her questions were answered to her satisfaction. I regards to her goiter. This is not bothering her and I recommended simple observation. I participated in the formulation of the diagnosis and treatment plan as outlined in Dr. Sage cavazos's note. Beny Cruz MD Professor of Otolaryngology, Head & Neck Surgery Progress Notes by Kamari Sunshine MD at 05/28/2014 12:11 PM Author: Kamari Sunshine MD Service: (none) Author Type: Resident Filed: 06/06/2014 8:32 AM Note Time: 05/28/2014 12:11 PM Status: Signed Senior Java Engineer: Beny Cruz MD (Physician) OTOLARYNGOLOGY/HEAD AND NECK SURGERY CONSULT HISTORY AND PHYSICAL EXAM Patient: Cielo Bell Author: KAMARI SUNSHINE MD Attending Physician: Beny Cruz MD Date of Exam: 05/28/2014 CC: Right neck mass HISTORY OF PRESENT ILLNESS/ INTERVAL UPDATE Cielo Bell is a 64 y.o. female with a past medical history that is significant for right goiter s/p remote right hemithyroidectomy and cerebral aneurysm s/p remote clippi ng and shunt placement who presents today for evaluation of the above chief complaint. She f irst noticed the mass a year ago, although her daughter who accompanies her today states oni t it has been present for more likely 3-4 years. The patient and her daughter note that the mass has been increasing in size over that time.It has been otherwise asymptomatic, and the patient denies any associated symptoms, including no: blurry vision, diplopia, headache, gricelda lgia, hearing changes, tinnitus, vertigo, dysphagia, odynophagia, shortness of breath and ch est pain. 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 Goiter 06/06/2014 PAST SURGICAL HISTORY: Past Surgical History Procedure Laterality Date Partial thyroidectomy Hysterectomy Cholecystecomy Bladder suspension 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 shunt Right tympanoplasty (2-3 decades ago per patient) SOCIAL HISTORY: History Substance Use Topics Smoking status: Current Every Day Smoker -- 1.50 packs/day for 47 years Types: Cigarettes Smokeless tobacco: Never Used Comment: quit for 1 year Alcohol Use: No Medications: None ALLERGIES: Allergies Allergen Reactions Betadine [Povidone-Iodine (With Soap)] Unknown Cipro [Ciprofloxacin] Codeine Hcl Unknown Sulfa (Sulfonamide Antibiotics) FAMILY HISTORY: Father with brain cancer, brother with lung cancer PHYSICAL EXAM: CURRENT VITALS: Wt 53.751 kg (118 lb 8 oz), BP 144/85, Pulse 88, BMI 23.92 kg/(m^2). General: NAD, awake, alert, appropriate HEENT: Voice: no hoarseness, no audible stridor Face: Right forehead with depression associated with prior craniotomy. Normal facial nerve function. Large approximately 5cm x 2.5cm, firm, nontender, relatively nonmobile mass at the angle of right mandible Eyes: Extraocular movements intact, PERRLA. Sclera non-icteric. Nose: Normal, nares clear bilaterally, septum midline Oral Cavity: Tongue and palate mobility normal. No mucosal lesions noted Ears: TM's intact, no evidence of perforation or bleeding, external auditory canals with no apparent abnormalities; hearing apparently intact Neck: Supple, intact ROM; no thyroid masses palpable. WATER/WASTEWATER ENGINEER shunt apparent under skin coursing through posterior right neck and over right clavicle CN II-XII: Intact. Respiratory: breathing comfortably on room air Cardiovascular: regular rate Pathology: 05/08/14 FNA results reviewed. Adequate for evaluation. Mixed blood cells includi ng lymphocytes and squamous cells present. No atypical cells identified. RADIOLOGY AND OTHER DIAGNOSTICS: We reviewed her CT scan. This shows a large mass in the tail of the parotid gland on the ri ght. She has a large goiter in the left thyroid lobe. This does cause some mild deviation but no compression of the trachea. ASSESSMENT: Cielo Bell is a 64 y.o. female with history of right goiter s/p remote right h emithyroidectomy and cerebral aneurysm s/p remote clipping and shunt placement referred for evaluation of right neck mass. The mass has been present and slow-growing for a number of ye ars and has become quite large. The patient denies any associated symptoms. History, exam, i maging and FNA results most consistent with a Warthin's tumor. Patient would benefit from re section. Risks including facial nerve injury, benefits, alternatives regarding right total p arotidectomy discussed. Questions answered. Patient would like to proceed with surgery. PLAN: Patient will call to schedule surgery Patient was seen and discussed with Dr. Cruz. Plan subject to change, based on heidi aquino. Kmaari Sunshine MD Otolaryngology/Head and Neck Surgery PGY-1, Pager: [phone] documented in this e ncounter Miscellaneous Notes Scan - Noe Faculty - 06/06/2014 5:41 PM PDTElectronically signed by Faculty Other at 5:41 PM PDTScan - Noe Faculty - 06/06/2014 5:41 PM PDT documented in this encounter Plan of Treatment Not on filedocumented as of this encounter Visit Diagnoses + + | Diagnosis | + + | Benign neoplasm of major salivary glands - Primary | + + documented in this encounter
--- OUTSIDE RECORDS SUMMARY | ~2019-10-22 | XMS | Encounter Summary ---
Demographics + + + | Address | [address] | | | [place] [address] | + + + | Home Phone | | + + + | Preferred Language | Unknown | + + + | Marital Status | | + + + | Synagogue Affiliation | MET | + + + [...] Team Providers + +------+ + | Care Conductor Road Freight Name | Role | Phone | + +------+ + | Remington Leroy MD | PCP | | + +------+ [...] Description | +--------+---------+ + + + | 10/22/ | Surgery | 6A Intra Op [id number] | Magnolia Diego MD | RIGHT SYNTHETIC | | 2015 | | [facility] | [address] | CRANIOPLASTY | | | | Rd [facility] | [place], [place] | | | | | Hospital Admitting | [address] | | | | | Desk Located on the | [phone] | | | | | 9th floor | | | | | | [place], [place] | | | | | | [address] | | | +--------+---------+ + + + [...] + + + | Blood Pressure | 109/75 | 10/25/2015 8:07 AM | | | | | PDT | | + + + + + | Pulse | 93 | 10/25/2015 8:07 AM | | | | | PDT | | + + + + + | Temperature | 37.4 C (99.3 F) | 10/25/2015 8:07 AM | | | | | PDT | | + + + + + | Respiratory Rate | 20 | 10/25/2015 8:07 AM | | | | | PDT | | + + + + + | Oxygen Saturation | 86% | 10/25/2015 8:07 AM | | | | | PDT | | + + + + + | Inhaled Oxygen | - | - | | | Concentration | | | | + + + + + | Weight | 56.3 kg (124 lb 1.9 | 10/25/2015 4:59 AM | | | | oz) | PDT | | + + + + + | Height | 149.9 cm (4' 11.02") | 10/23/2015 6:55 AM | | | | | PDT | | + + + + + | Body Mass Index | 25.06 | 10/23/2015 6:55 AM | | | | | PDT | | + + + + + documented in this encounter Discharge Summaries Piotr Townsend MD - 10/25/2015 11:43 AM PDTFormatting of this note might be different fro m the original. 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 Cielo Bell is a 65-year-old female with a history of ruptured anterior communicatin g artery aneurysm, status post right pterional clipping, along with post-hemorrhagic hydroce phalus, status post right ventriculoperitoneal shunt in 2007 and 2008 respectively. She retu rned to our clinic recently for followup. At our last clinic appointment in December 2014, s he had a right frontal screw protrusion. Unfortunately, just shortly before that appointment she suffered an GA and was placed on aspirin and Plavix and was not cleared for surgery. Sage scott, since we last saw her, the skin over that screw has regrown but the screw has actuall y migrated posteriorly about 1 cm. She also has a significant cranial defect over her previo us craniotomy site. As such, she was indicated for a right synthetic cranioplasty. The patie nt was well apprised of all potential risks, benefits, and complications of the procedure. She was admitted electively on 10/23/2015 for a right synthetic cranioplasty . The inpatient stay related to this procedure took an uncomplicated perioperative course. Post operatively, the patient was admitted to the hospital for convalescent care. Pain was adequately contorlled. The patient made appropriate gains toward activity and functional g oals while an inpatient. While on the hospital floor, the patient tolerated oral intake sufficient to maintain nutri tion and hydration. The surgical wound remained clean, dry, and intact without signs concern ing for infection. The patient was felt appropriate for discharge to home on 10/24/2015, and the patient agreed with this course of action. Patient has follow up in neurosurgery clinic on 11/07/2015 11:30AM. Patient instructed do not restart plavix until 2 weeks after surgery. Exam: Awake, alert, fluent speech PERRL, EOMI Face symmetric, tongue midline Decreased sensation R V3 and right ear No pronator drift Strength 5/5 in all extremities Sensation intact to light touch in ext. Cranial incision c/d/i Current Discharge Medication List START taking these medications Details acetaminophen 325 mg oral tablet Take 1-2 tablets by mouth every six hours as needed for mo derate pain. Qty: 120 tablet, Refills: 0 nicotine 21 mg/24 hr transdermal patch 24 hour Apply 1 patch to skin once daily. Qty: 31 patch, Refills: 0 ondansetron (ZOFRAN, HYDROCHLORIDE,) 4 mg oral tablet Take 1 tablet by mouth every twelv e hours as needed. Qty: 30 tablet, Refills: 0 oxyCODONE, immediate release, 5 mg oral tablet Take 1-3 tablets by mouth every three hours as needed for moderate pain. Qty: 50 tablet, Refills: 0 senna-docusate 8.6-50 mg oral tablet Take 2 tablets by mouth twice daily as needed (take tw ice daily as long as you are taking narcotic pain medication). Qty: 60 tablet, Refills: 3 CONTINUE these medications which have CHANGED or have new prescriptions Details aspirin EC 81 mg oral tablet,delayed release (DR/EC) Take 1 tablet by mouth once daily. Do not restart aspirin until 2 weeks after surgery clopidogrel 75 mg oral tablet Take 1 tablet by mouth once daily. Do not restart plavix unti l 2 weeks after surgery CONTINUE these medications which have NOT CHANGED Details metoprolol succinate 25 mg oral tablet extended release 24 hr Take 25 mg by mouth once bernadine y. pravastatin 20 mg oral tablet Take 20 mg by mouth once daily at bedtime. STOP taking these medications mupirocin 2 % topical ointment Comments: Reason for Stopping: Wound Care 1) Keep your incision site clean and dry. Make sure that you protect your incision when wea ring glasses. 2) It is ok for you to shower and get your surgical incision wet three days af ter surgery, but do not submerge surgical incision in hot tub or swimming pool. You can use baby shampoo for the first two weeks, then regular shampoo thereafter. 3) Please avoid placi ng creams or ointments directly on the incision even though it may itch. 4) Your genoveva/sut ures will be removed in clinic. Diet Regular Regular diet- There are no restrictions to your diet. You may eat or drink whatever you pr efer, though healthy food choices are recommended. Activity 1) Avoid activities that might precipitate trauma to your head, including biking, skiing, s trenuous hiking. 2) No pushing, pulling, bending; no lifting greater than 15 pounds. 3) Walking, even if for brief periods, is an important part of your post operative recovery and helps decrease pain. Follow-Up Future Appointments Provider Department Directions 11/07/2015 11:30 AM NSG FELLOW Neurosurgery at [facility] Destination: Destination: Home Condition on Discharge Good Future Appointments Provider Department Dept Phone [place] 11/07/2015 11:30 AM NSG FELLOW Neurosurgery at [facility] [phone] Neurosurgery Warning Symptoms and Signs If you have any of the following symptoms, please call our clinic or on-call physician: 1. Increasing redness, pain, drainage from your surgical incision; 2. Fevers, chills; 3. Severe headache not alleviated by pain medications; 4. Persistent nausea or vomiting; 5. Any new neurologic symptom (vision changes, weakness of one side of your body, sleepines s, problems with talking or thinking). During clinic hours, M-F 7:30-4:30 pm, please call [phone] or after hours call Neurosu rgery resident at [phone] Pain Medications DO NOT restart plavix until 2 weeks after surgery. You should begin weaning your narcotic pain medication as soon as you are able. However, experiencing a headache or surgical site discomfort is common for the first several weeks. You can begin taking Acetaminophen (Tylenol) 500 to 650 mg every six hours to help with pain relief so long as there is no medical contraindication to taking Acetaminophen. While you are taking narcotic pain medication, you should also take a stool softener/laxati ve as narcotics cause constipation. If you have not had a bowel movement for > 4 days, you should contact our office for instructions. Outstanding labs/studies: None Discharging Physician: Piotr Townsend MD Attending Physician: MD Piotr Woods MD Neurosurgery Resident [id number] documented in this encou nter Progress Notes Frances Mcfadden PA - 10/24/2015 11:58 AM PDTFormatting of this note might be differen t from the original. . Neuroscience Intensive Care Unit Team Progress Note NSICU ASSIGNED #[id number] Admission dx: m95.2 1 Days in ICU 1 Days in Hospital Abbreviated HPI / Daily Assessment Cielo Bell is a 65 y/o F smoker w/ hx COPD, CAD w/ GA s/p Stents in Dec 2014, with hx of rupture Acomm aneurysm s/p clipping in 2007. Now s/p synthetic cranioplasty. 24 Hour events: -POD#1 s/p R synthetic cranioplasty -no acute issues overnight -ambulating independently and with RN w/o issue. Active Diagnosis with Assessment & Plan Priority Class POA Nervous Communicating hydrocephalus Yes Current Assessment & Plan -Has R frontal VPS in situ, last revised in 2008. -per NSGY, no compromise of shunt system during the 10/22 cranioplasty surgery. Head/Neck * (Principal)Skull defect Yes Current Assessment & Plan -Admitted to NSICU s/p R synthetic crani; Dr. Diego primary. -Q 4 hr neuro checks and vitals. -cooper status; will likely d/c home today per NSGY. -pain and nausea meds as per APR. -post op CT imaging per neurosurgery--scan shows stable post op findings, encephalomalacia. -reconciled home meds. -incisional wound care as per NSGY protocol. Cardiovascular HTN (hypertension) Yes Overview ICD10 Current Assessment & Plan -Goal SBP < 160 -continue home metop XL 25 mg daily Respiratory/Chest Chronic obstructive pulmonary disease (HCC) Yes Overview ICD10 Current Assessment & Plan -pt takes no regular COPD meds at home. -got Albuterol MDI in [place] prior to extubation -Uses 2L O2 NC nightly at home. -Albuterol MDI 2 puffs q 4 hr PRN for wheeze/SOB Endocrine/Metabolic Hyperglycemia Yes Overview -Hg A1C 5.7 (Pre-diabetes) Current Assessment & Plan -Goal CBG < 180 -Aggressive sliding scale Lispro Other Continuous tobacco abuse Yes Current Assessment & Plan -smokes 1 PPD x 50 yrs -not interested in quitting Code Status Updated to: FULL The Advanced Care Note for this patient can be found under the notes tab in chart review. Constitutional: She appears well-developed and well-nourished HENT: Head:normocephalic Throat: oropharynx is clear and moist Neck: normal range of motion Cardiovascular: normal rate, regular rhythm, normal heart sounds and intact distal pulses n o murmur heard. Pulmonary: effort normal and breath sounds normal. No respiratory distress. Abdominal: Abdomen is soft. She exhibits no distention. bowel sounds are normal. Musculoskeletal: normal range of motion. Skin: Skin is warm and dry. Psychiatric: She has a normal mood and affect. Physical exam Her GCS eye subscore is 4. GCS verbal subscore is 5. GCS motor subscore is 6. GCS Score is 15. She has normal language, normal speech, intact cranial nerves, normal and symmetric st rength in all extremities, normal and symmetric deep tendon reflexes, normal coordination, n ormal sensation and normal gait.She is alert She is oriented.She normal and symmetric reflex es. Comments Pt has some baseline decreased sensation to R ear ever since previous surgery. . NSICU treatment team members Provider Role Ipt Neurosurgery #[id number] Treatment Team Ipt Critical Care Nsicu #[id number] Treatment Team Patient Lines/Drains/Airways Status Active Lines, Drains and Airways Name: Placement date: Placement time: Site: Days: Wound/Incision/Drain Left: neck abscess 03/04/08 2200 2789 Drains (wounds/surgical) LAZARA 06/07/14 504 Peripheral IV Right Lateral Wrist 18 g 10/23/15 0745 Wrist 1 Wound Right head 10/23/15 head 1 Wound R frontal Right: frontal region surgical wound 04/12/08 frontal region 2751 Incision R abdomen 04/12/08 2751 Incision Right: neck 06/07/14 neck 504 Gastric/Feeding Tube OG 10/18/07 0514 2928 Gastric/Feeding Tube Dobhoff 10/24/07 1330 2921 Quality section FAST HUG Feeding: Reg diet Analgesia: APAP first line for mild pain followed by PRN oxycodone for mod-severe pain Sedation: none Thromboprophylaxis: SCDs Head of Bed: Head of Bed >30 degrees Ulcer Prophylaxis: not clinically indicated Glycemic Control: ISS prn Pt is not critically ill. I have spent a total of 50 Minutes independently in the direct care and management of th is patient.Time is independent of any time spent teaching or performing any separately billa ble procedures. I reviewed the documented findings, all data and the recent imaging availabl e. Date of Service: 10/24/2015 ANSON Chatterjee [facility] DEPARTMENT: ANE ICU NEURO Place of Service:- Inpatient CSN: [id number] Suggested Modifier: None Suggested CPT: TO MANAGER MASS ANSON Irvin Author:ANSON Chatterjee [facility] [address] [place] [address] Jerzy Saez MD - 10/24/2015 10:36 AM PDT . Neuroscience Intensive Care Unit Attending Progress Note Attending Pager #[phone] Hospital admission dx: m95.2 1 Days in ICU 1 Days in Hospital Abbreviated HPI / Daily Assessment Cielo Bell is a 65 y/o F smoker w/ hx COPD, CAD w/ GA s/p Stents in Dec 2014, with hx of rupture Acomm aneurysm s/p clipping in 2007. Now s/p synthetic cranioplasty. Medical Decision Making Doing great. On home meds, bronchodilators. Walked around the unit. Okay to transfer or di scharge (if considered appropriate for home on formal PT eval). Code Status Updated to: FULL Constitutional: She appears well-developed Cardiovascular: normal rate and regular rhythm vitals and nursing note reviewed. Physical exam Her GCS eye subscore is 4. GCS verbal subscore is 5. GCS motor subscore is 6. GCS Score is 15. She has intact cranial nerves and normal and symmetric strength in all extremities.She is alert Hospital Problems Priority POA Nervous Communicating hydrocephalus Yes Head/Neck * (Principal)Skull defect Yes Cardiovascular HTN (hypertension) Yes Respiratory/Chest Chronic obstructive pulmonary disease (HCC) Yes Endocrine/Metabolic Hyperglycemia Yes Other Continuous tobacco abuse Yes NSICU treatment team members Provider Role Ipt Neurosurgery #[id number] Treatment Team Ipt Critical Care Nsicu #[id number] Treatment Team The Advanced Care Note for this patient can be found under the notes tab in chart review. Quality section I have spent a total of 23 minutes in the direct care and management of this patient indepe ndent of any time spent teaching or performing any separately billable procedures. I reviewe d the documented findings, all data and the recent imaging available. Seen with PA/WATER TREATMENT PLANT OPERATOR Ashish Mcfadden. Please see their note for details. I reviewed the documented findings, all data and the recent imaging available. Date of Service: 10/24/2015 Author:Jerzy Centeno MD [facility] [address] [place] [address] ommie Bliss - 03/2015 4:28 AM PDT NEUROSURGERY PROGRESS NOTE Hospital Day #: 1 Attending: Magnolia Diego MD Interval Events: Starting sliding scale insuline Deisolated - MRSA negative On 2L by Oxymask overnight No acute events Subjective: Patient does not have new complaints. She is optimistic about the future. Objective: Last Vitals: BP 117/54 | Pulse 92 | Temp 37.2 C (99 F) | RR 18 | Ht 1.499 m (4' 11.02") | SpO2 91% 24 Hour Vital Min/Max: Systolic (24hrs), Av mmHg, Min:100 mmHg, Max:143 mmHg Diastolic (24hrs), Av mmHg, Min:49 mmHg, Max:67 mmHg Pulse Min: 71 Max: 96 Temp Min: 36.3 C (97.3 F) Max: 37.2 C (99 F) Resp Min: 14 Max: 32 SpO2 Min: 85 % Max: 98 % Intake/Output Summary (Last 24 hours) at 10/24/15 0428 Last data filed at 10/24/15 0300 Gross per 24 hour Intake 3292.5 ml Output 1130 ml Net 2162.5 ml Last 24 hour min/max Temp: 37.2 C (99 F) Temp Min: 36.3 C (97.3 F) Max: 37.2 C (99 F) Pulse: 92 Pulse Min: 71 Max: 96 Resp: 18 Resp Min: 14 Max: 32 BP: 117/54 mmHg BP Min: 100/50 Max: 143/64 SpO2: 91 % SpO2 Min: 85 % Max: 98 % There is no weight on file to calculate BMI. I/O/Drains Current Shift I/O/Drains Last 3 Completed Shifts 10/22 2300 - 10/23 0700 In: 200 [P.O.:200] Out: 250 [Urine:250] 10/21 2300 - 10/22 2300 In: 3092.5 [P.O.:750; I.V.:2342.5] Out: 880 [Urine:730] No Data Recorded No Data Recorded Physical Exam: Awake, alert, oriented to self, time, place, situation PERRL EOMI Face symmetric; face sensation is intact and symmetrical, right ear is without sensation (h er baseline) Tongue midline No pronator drift Strength 5/5 SILT Incision c/d/i. No surrounding erythema, swelling or drainage. Labs: Complete Blood Count/Coags Recent Labs 10/23/15 0653 10/23/15 1034 10/24/15 0016 WBC 7.78 12.47* 17.22* HB 14.3 13.2 12.6 HCT 42.4 39.8 38.5 PLT 234 194 194 Invalid input(s): INR CSF Results No results for input(s): WBCCSF, RBCCSF, GLUCOSECSF, PROTEINCSF in the last 8640 hours. Chemistry Recent Labs 10/23/15 1034 10/23/15 1154 10/24/15 0016 NA 140 142 141 K 6.2* 4.5 4.6 CL 113* 111* 108 BICARB 22 26 27 BUN 9 10 12 CR 0.82 1.04 0.87 GLU 159* 160* 118* CA 7.7* 7.7* 8.1* MG -- -- 1.9 PO4 4.4 3.5 3.8 Culture Results CULTURE RESULT (no units) Date Value 05/13/2008 CSF Culture Source...............: Cerebrospinal Fluid RLB Gram Stain...........: Gram smear performed at [facility]. Culture: Final Report: No growth after 3 days. Final Report Current Facility-Administered Medications Medication Dose Route Frequency acetaminophen (TYLENOL) tablet 325-650 mg 325-650 mg oral Q6H PRN bisacodyl (DULCOLAX) suppository 10 mg 10 mg rectal DAILY PRN dextrose 50 % in water IV 25 mL 25 mL intravenous PRN glucagon (GLUCAGEN) injection 1 mg 1 mg intramuscular PRN glucose chewable tablet 16 g 16 g oral PRN HYDROmorphone (DILAUDID) injection 0.5-1.5 mg 0.5-1.5 mg intravenous Q2H PRN insulin lispro (HUMALOG) injection subcutaneous QID magnesium sulfate in water IV (RTU) 2 g 2 g intravenous PRN magnesium sulfate in water IV (RTU) 4 g 4 g intravenous PRN metoprolol succinate (TOPROL-XL) tablet 25 mg 25 mg oral DAILY ondansetron (ZOFRAN) injection 4 mg 4 mg intravenous Q8H Followed by ondansetron (ZOFRAN) injection 4 mg 4 mg intravenous Q8H PRN Followed by [START ON 10/26/2015] ondansetron (ZOFRAN) injection 4 mg 4 mg intravenous Q12H PRN oxyCODONE (immediate release) (ROXICODONE) tablet 5-15 mg 5-15 mg oral Q3H PRN polyethylene glycol (MIRALAX) powder 17 g 17 g oral DAILY polyethylene glycol (MIRALAX) powder 34 g 34 g oral TID PRN potassium chloride SR (K-DUR) tablet 20-40 mEq 20-40 mEq oral PRN Or potassium chloride (KAOCHLOR) liquid 10% 20-40 mEq 20-40 mEq feeding tube PRN potassium chloride IV 10 mEq 10 mEq intravenous PRN pravastatin (PRAVACHOL) tablet 20 mg 20 mg oral HS senna-docusate (SENOKOT S) 8.6-50 mg 2 tablet 2 tablet oral BID sodium phosphate IV 30 mmol 30 mmol intravenous PRN sodium phosphate IV 45 mmol 45 mmol intravenous PRN sodium phosphate IV 60 mmol 60 mmol intravenous PRN Imagin10/23/15 Post-operative CT head Assessment: Cielo Bell is a 65 y.o. Female with a history of ruptured anterior communicati ng artery aneurysm, status post right pterional clipping, along with post-hemorrhagic hydroc ephalus, status post right ventriculoperitoneal shunt in 2007 and 2008 respectively. At a inic appointment in December 2014, she had a right frontal screw protrusion. Unfortunately, just shortly before that appointment she suffered an GA and was placed on aspirin and Plavix and was not cleared for surgery. However, since that time, the skin over that screw had reg rown but the screw has actually migrated posteriorly about 1 cm. She also had a significant cranial defect over her previous craniotomy site. She is now POD #1 s/p Right synthetic cran ioplasty. She is at her neurological baseline and very happy with her result. Plan: - PT to evaluate today - Tx to floor vs Discharge, based on PT recommendations - clean wound free of dried blood prior to discharge Please page adult resident switchboard and control room operator [id number] with questions Tommie Bliss MD, PhD PGY-2, Neurosurgery 4:28 AM, 10/24/2015 Associated attestation - Dameon Scanlon DO - 10/24/2015 4:48 PM PDTNeurosurgery Fellow Mirna te I saw and evaluated the patient with Dr. Diego and the Neurosurgery team on rounds. I agre e with the findings and the plan of care as documented in the resident s note. -Contact neurosurgery team with any questions/concerns/changes in exam. -Appreciate opportunity to be involved with patient's care Dameon Scanlon DO Skull Base Fellow Department of Neurosurgery [facility] Georgia Rosado MD - 10/23/2015 7:16 PM PDTFormatting of this note might be different fro m the original. . Neuroscience Intensive Care Unit Attending Progress Note Attending Pager #[phone] Hospital admission dx: m95.2 Days in ICU Days in Hospital Abbreviated HPI / Daily Assessment Cielo Bell is a 65 y/o F smoker w/ hx COPD, CAD w/ GA s/p Stents in Dec 2014, with hx of rupture Acomm aneurysm s/p clipping in 2007. Now s/p synthetic cranioplasty. Medical Decision Making Doing well after cranioplasty. At risk for hemorrhage, seizure. Continue outpatient b-bloc ker. Mobilize, ADAT. Continue outpatient bronchodilators. Code Status Updated to: FULL Physical exam Her GCS eye subscore is 4. GCS verbal subscore is 5. GCS motor subscore is 6. GCS Score is 15. She has normal and symmetric strength in all extremities. Hospital Problems Priority POA Nervous Communicating hydrocephalus Yes Head/Neck * (Principal)Skull defect Yes Cardiovascular HTN (hypertension) Yes Respiratory/Chest Chronic obstructive pulmonary disease (HCC) Yes Endocrine/Metabolic Hyperglycemia Yes Other Continuous tobacco abuse Yes NSICU treatment team members Provider Role Ipt Neurosurgery #[id number] Treatment Team Ipt Critical Care Nsicu #[id number] Treatment Team The Advanced Care Note for this patient can be found under the notes tab in chart review. Quality section I have spent a total of 22 minutes in the direct care and management of this patient indepe ndent of any time spent teaching or performing any separately billable procedures. I reviewe d the documented findings, all data and the recent imaging available. Date of Service: 10/23/2015 [facility] DEPARTMENT: ANE ICU NEURO Place of Service:- Inpatient CSN: [id number] Suggested Modifier: None Suggested CPT: TO MANAGER MASS Author:[place] Rosado MD [address] [place] [id number] [place] [address] Cammie Maria MD - 10/22 10:35 AM PDT NEUROSURGERY POST OPERATIVE CHECK Author: Cammie Ramos MD Date: 03/01/2015 PROCEDURE: Right synthetic cranioplasty S: denies complaints VITAL SIGNS: BP 149/87 | Pulse 81 | Temp 36.6 C (97.9 F) | RR 17 | Ht 1.626 m (5' 4") | Wt 116 kg (2 55 lb 11.7 oz) | SpO2 99% | BMI 43.87 kg/(m^2) PHYSICAL EXAM FINDINGS: Awake, alert, oriented to self, place and time Briskly following commands Speech normal, affect appropriate EOMI Smile symmetric Tongue midline No pronator drift 5/5 BUE HG, B, T 5/5 BLE HF, DF, PF SILT Incision covered with dressing - C/D/I. Flat. No fluid collection. No fluctuance. No drai nage/CSF leak noted A/P: Neurologically stable. Continue care: - periop vanc - head CT - Keep incision and dressings C/D/I. - Maintain adequate analgesia with goal RASS 0 - SBP 100-160 - ADAT - Utilize bowel regimen for goal 1 BM per 24 hours - SCDs while in bed Cammie Ramos MD Neurosurgery PGY2 [id number] documented in this encounte r H&P Notes Jerzy Centeno MD - 10/23/2015 4:36 PM PDTFormatting of this note might be different fr om the original. . Neuroscience Intensive Care Unit Attending H&P Note Attending Pager #[phone] Admission dx: m95.2 Days in ICU Days in Hospital HPI Cielo Bell is a 65 y/o F smoker w/ hx COPD, CAD w/ GA s/p Stents in Dec 2014, with hx of rupture Acomm aneurysm s/p clipping in 2007. 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 She was seen in neurosurgery clinic for follow up in Dec 2014 sh ortly after her GA. At that clinic appt 12/2014, she was noted to have a Right frontal scre w protrusion. Due to her recent GA and bare metal stent placement, she was on ASA/plavix, an d was not cleared for neurosurgical procedure at the time in Dec 2014. By her next appt in A ug 04-08, the skin over the screw had regrown, and the screw has actually migrated posteriorl y about 1 cm. She also had a significant sunken cranial defect and was indicated for synthet ic cranioplasty. Pt underwent Right synthetic cranioplasty 10/23/15 and is admitted to NSICU post-operatively. Procedural details INTRAOPERATIVE COURSE: LINES, DRAINS & AIRWAY: LINES: PIV's, goins DRAINS: AIRWAY: easy G0 w/ Mac 3; easy mask. 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 Had right crani for aneurysm clipping in setting of SAH in 2007. Hx also significant for NSTEMI in December 2014, s/p BMS stenting, on dual antiplatelets, and severe COPD on O2 at night at home. Perio p course has been uncomplicated, post-op CT looks great. Plan: Frequent neuro checks, SBP < 160 to reduce risk of ICH. At risk for ICH, stroke, SDH, epidu ral hematoma, seizure. Holding ASA and clopidogrel for now, rediscuss with NSGY when okay to restart ASA to reduce risk of instent thrombosis. Restart home metop and pravastatin. O2 CA N at night. Regular diet, SCDs. Should be candidate for deisolation protocol. Code Status Updated to: FULL Constitutional: She appears well-developed and well-nourished HENT: Throat: oropharynx is clear and moist Neck: normal range of motion Cardiovascular: normal rate and regular rhythm Pulmonary: effort normal and breath sounds normal. Abdominal: Abdomen is soft. Musculoskeletal: normal range of motion. Skin: Skin is warm and dry. Psychiatric: She has a normal mood and affect. normal thought content and judgment normal. Her behavior is normal. vitals and nursing note reviewed. Physical exam Her GCS eye subscore is 4. GCS verbal subscore is 5. GCS motor subscore is 6. GCS Score is 15. She has normal language, normal speech, intact cranial nerves and normal and symmetric strength in all extremities.She is alert She is oriented. Hospital Problems Priority POA Nervous Communicating hydrocephalus Yes Head/Neck * (Principal)Skull defect Yes Cardiovascular HTN (hypertension) Yes Respiratory/Chest Chronic obstructive pulmonary disease (HCC) Yes Other Continuous tobacco abuse Yes NSICU treatment team members Provider Role Ipt Neurosurgery #[id number] Treatment Team Ipt Critical Care Nsicu #[id number] Treatment Team This patient does not have an Advanced Care Note for this Admission. Please use the Goal of care section of your ICU navigator to document the advanced care discussion. Quality section I have spent a total of 29 minutes in the direct care and management of this patient indepe ndent of any time spent teaching or performing any separately billable procedures. I reviewe d the documented findings, all data and the recent imaging available. Seen with PA/WATER TREATMENT PLANT OPERATOR Ephraim Mcfadden. Please see their note for details. I reviewed the documented findings, all data and the recent imaging available. Date of Service: 10/23/2015 Author:Jerzy Centeno MD [address] [id number] Frances Baldwin PA - 10/23/2015 4:08 PM PDT . Neuroscience Intensive Care Unit Team H&P Note NSICU ASSIGNED #[id number] Days in ICU Days in Hospital POD#0 s/p R synthetic cranioplasty Admitting Provider: MAGNOLIA DIEGO Ray is a 65 y/o F smoker w/ hx COPD, CAD w/ GA s/p Stents in Dec 2014, with hx of rupture Acomm aneurysm s/p clipping in 2007. 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 She was seen in neurosurgery clinic for follow up in Dec 2014 sh ortly after her GA. At that clinic appt 12/2014, she was noted to have a Right frontal scre w protrusion. Due to her recent GA and bare metal stent placement, she was on ASA/plavix, an d was not cleared for neurosurgical procedure at the time in Dec 2014. By her next appt in A ug 04-08, the skin over the screw had regrown, and the screw has actually migrated posteriorl y about 1 cm. She also had a significant sunken cranial defect and was indicated for synthet ic cranioplasty. Pt underwent Right synthetic cranioplasty 10/23/15 and is admitted to NSICU post-operatively. Procedural details INTRAOPERATIVE COURSE: LINES, DRAINS & AIRWAY: LINES: PIV's, goins DRAINS: AIRWAY: easy G0 w/ Mac 3; easy mask. OR Events: none EBL: 150 mL Crystalloid: 1.6 L Urine Output: 250 ml Significant Event No data filed Active Diagnosis with Assessment & Plan Priority Class POA Nervous Communicating hydrocephalus Yes Current Assessment & Plan -Has R frontal VPS in situ, last revised in 2008. -per NSGY, no compromise of shunt system during today's cranioplasty surgery. Head/Neck * (Principal)Skull defect Yes Current Assessment & Plan -Admit to NSICU s/p R synthetic crani; Dr. Diego primary. -Q 1 hr neuro checks and vitals. -pain and nausea meds as per APR. -post op CT imaging per neurosurgery--scan shows stable post op findings, encephalomalacia. -reconcile home meds. -incisional wound care as per NSGY protocol. Cardiovascular HTN (hypertension) Yes Overview ICD10 Current Assessment & Plan -Goal SBP < 160 -continue home metop XL 25 mg daily Respiratory/Chest Chronic obstructive pulmonary disease (HCC) Yes Overview ICD10 Current Assessment & Plan -pt takes no regular COPD meds at home. -got Albuterol MDI in OR prior to extubation -Uses 2L O2 NC nightly at home. -Albuterol MDI 2 puffs q 4 hr PRN for wheeze/SOB Endocrine/Metabolic Hyperglycemia Yes Overview -Hg A1C 5.7 (Pre-diabetes) Current Assessment & Plan -Goal CBG < 180 -Aggressive sliding scale Lispro Other Continuous tobacco abuse Yes Current Assessment & Plan -smokes 1 PPD x 50 yrs -not interested in quitting Code Status Code Status Full Code Polst NO Advance Directive NO This patient does have an Advanced Care Note for this Admission. Review of Systems Constitutional: Negative. HENT: Negative. Has a mild ZULUAGA post op, but has not been c/o chronic ZULUAGA's. Eyes: Negative. Respiratory: Pt smokes 1 PPD. Not on COPD meds at home. Uses 2L O2 NC nightly. Cardiovascular: Negative. On Pravastatin for HLD. Gastrointestinal: Negative. Genitourinary: Negative. Musculoskeletal: Negative. Skin: Negative. Neurological: Negative for dizziness, sensory change, seizures, light-headedness, numbness, difficulty with concentration, disturbances in coordination and paresthesias. Psychiatric/Behavioral: Negative for depression. Constitutional: She appears well-developed and well-nourished Mildly somnolent. HENT: Throat: oropharynx is clear and moist R crani incision c/d/i. Neck: normal range of motion Cardiovascular: normal rate, regular rhythm, normal heart sounds and intact distal pulses n o murmur heard. Pulmonary: effort normal and breath sounds normal. No respiratory distress. Abdominal: Abdomen is soft. She exhibits no distention. bowel sounds are normal. Musculoskeletal: normal range of motion. Skin: Skin is warm and dry. Physical exam Her GCS eye subscore is 4. GCS verbal subscore is 5. GCS motor subscore is 6. GCS Score is 15. She has normal language, normal speech, intact cranial nerves, normal and symmetric st rength in all extremities, normal coordination and normal sensation.She is alert She is orie nted. Past Medical History Diagnosis Date GERD (gastroesophageal reflux disease) Essential hypertension Tobacco dependence COPD on oxygen at night Otitis media recent abx preadmit Chronic pain CVA (cerebral vascular accident) ([facility]) 2007 Subarachnoid hemorrhage due to ruptured aneurysm ([facility]) 2007 Benign neoplasm of major salivary glands Goiter CAD in wr[place] artery s/p NSTEMI 12/27/2014; status post stent placement in the mid LAD Abnormal LFTs (liver function tests) MRSA (methicillin resistant staph aureus) culture positive post cariotomy for SAH Continuous tobacco abuse Past Surgical History Procedure Laterality Date Partial thyroidectomy Right Hysterectomy Cholecystecomy Bladder suspension 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 Tympanoplasty Right 1987 Lumpectomy of left breast 1979 Coronary stent placement 12/28/2014 status post stent placement in the mid LAD Allergies Allergen Reactions Snyder Tar Hives Betadine [Povidone-Iodine (With Soap)] Unknown Cipro [Ciprofloxacin] Nausea and Vomiting Codeine Hcl Nausea and Vomiting Sulfa (Sulfonamide Antibiotics) Erythema Family History Problem Relation Cancer Brother lung Cancer Father brain Additional Family History Mother dementia Social History Social History Marital Status: Spouse Name: N/A Number of Children: N/A Years of Education: N/A Occupational History Not on file. Social History Main Topics Smoking status: Current Every Day Smoker -- 1.00 packs/day for 47 years Types: Cigarettes Smokeless tobacco: Never Used Comment: quit for 1 year Alcohol Use: No Drug Use: No Sexual Activity: No Other Topics Concern Not on file Social History Narrative Lives alone. February 2012. Prescriptions prior to admission Medication Sig Dispense Refill Last Dose aspirin EC 81 mg oral tablet,delayed release (DR/EC) Take 81 mg by mouth once daily. clopidogrel 75 mg oral tablet Take 75 mg by mouth once daily. metoprolol succinate 25 mg oral tablet extended release 24 hr Take 25 mg by mouth once daily. mupirocin 2 % topical ointment Place a small amount of ointment on a Q-tip and put it i nside the opening of each nostril once in the am and once in the pm for 5 days. 22 g 0 pravastatin 20 mg oral tablet Take 20 mg by mouth once daily at bedtime. NSICU treatment team members Provider Role Ipt Neurosurgery #[id number] Treatment Team Ipt Critical Care Nsicu #[id number] Treatment Team Patient Lines/Drains/Airways Status Active Lines, Drains and Airways Name: Placement date: Placement time: Site: Days: Wound/Incision/Drain Left: neck abscess 03/04/08 2200 2788 Drains (wounds/surgical) LAZARA 06/07/14 503 Peripheral IV Right Lateral Wrist 18 g 10/23/15 0745 Wrist less than 1 Peripheral IV Left Lateral Wrist 18 g 10/23/15 0830 Wrist less than 1 Wound Right head 10/23/15 head less than 1 Wound R frontal Right: frontal region surgical wound 04/12/08 frontal region 2750 Incision R abdomen 04/12/08 2750 Incision Right: neck 06/07/14 neck 503 Gastric/Feeding Tube OG 10/18/07 0514 2927 Gastric/Feeding Tube Dobhoff 10/24/07 1330 2921 Quality section Dispo: NSICU FAST HUG Feeding: Reg diet Analgesia: APAP first line for mild pain followed by PRN oxycodone for mod-severe pain Sedation: none Thromboprophylaxis: SCDs Head of Bed: Head of Bed >30 degrees Ulcer Prophylaxis: not clinically indicated Glycemic Control: Aggressive SSI I have spent a total of 58 Minutes independently in the direct care and management of th is patient.Time is independent of any time spent teaching or performing any separately billa ble procedures. I reviewed the documented findings, all data and the recent imaging availabl e. Date of Service: 10/23/2015 ANSON Chatterjee [facility] DEPARTMENT: [facility] ICU NEURO Place of Service:- Inpatient CSN: [id number] Suggested Modifier: None Suggested CPT: TO MANAGER MASS ANSON Irvin Author:ANSON Chatterjee [address] [id number] signed by ANSON Irvin at 10/23/2015 5:38 PM Kari Avila MD - 10/23/2015 7:21 AM PDTI have examined the patient and reviewed th e History and Physical and have confirmed that it is accurate and current. Kari Salinas MD able Lee MD - 0 10/03/2015 2:29 PM PDT PREOPERATIVE CONSULT NOTE Author: Mable Lee MD Referring Physician: Dr. Diego Primary Care Provider: Remington Leroy Md, MD Reason for Consult: Preoperative evaluation and risk assessment Proposed Procedure/Date: Cranioplasty 10/23/2015 HISTORY OF PRESENT ILLNESS: Cielo Bell is a 65 y.o. female here for preoperati ve evaluation of medical problems in anticipation of the above procedure. Pt has dx of cran ial deformity as a result of craniotomy for SAH in 2007. Symptoms related to the diagnosis: none Medical problems that are pertinent to the perioperative period: CAD -- pt had an NSTEMI Dec 28, 2015 and had coronary stents placed (bare metal) and sh e's on optimal medical mgmt with asa, statin, beta mukul and Plavix. She's been advised t hat she is to stop Plavix about 2 weeks before surgery. Because of her CAD, she should cont inue low dose aspirin, beta mukul and statin. COPD -- fairly advanced, though pt not using any inhalers. She uses supplemental oxygen at night. Prior hx of MRSA (post op infection) post craniotomy. No current symptoms. Ongoing tobacco dependence -- not interested in quitting. Perioperative cardiac risks: CAD Functional Capacity: Low (1-4 mets) Prior complications of anesthesia: none ROS: Pulmonary: no cough no shortness of breath Pt. Has no asthma COPD severe (O2) No dx of sleep apnea Cardiovascular: Functional Capacity: Moderate - cyanosis, PND, palpitations, chest pressure and syncope CAD no CHF hypertension well cont rolled no pacemaker GI/Hepatic: no GI Bleed GERD Control: Well controlled No liver disease no hepatitis no OTHE R GI : no renal failure no dialysis Endo: no Diabetes: Neurological: Sign/Sx (s/p SAH) no seizures no HX CORTICOSTEROID no psychiatric problem no dementia no pain Current Pain Level: Current pain level: 0 MS: no arthritis Heme/Onc: Pt. has: no active bleeding no Bleeding diathesis / thrombotic bleeding Previous Transfusions: no transfusion hx Hx: no other heme, Malignancy: no cancer, Location: [place] is: Skin: No open wounds or sores Hx of MRSA/VRE/Active skin infection Current medications reviewed / updated Current Medication List Name Sig ASPIRIN 81 MG TABLET,DELAYED RELEASE Take 81 mg by mouth once daily. CLOPIDOGREL 75 MG TABLET Take 75 mg by mouth once daily. METOPROLOL SUCCINATE ER 25 MG TABLET,EXTENDED RELEASE 24 HR Take 25 mg by mouth once daily. PRAVASTATIN 20 MG TABLET Take 20 mg by mouth once daily at bedtime. 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 CAD in [place] artery s/p NSTEMI 12/27/2014; status post stent placement in the mid LAD Abnormal LFTs (liver function tests) MRSA (methicillin resistant staph aureus) culture positive post cariotomy for SAH Past surgery reviewed and updated Past Surgical History Procedure Date Partial thyroidectomy Hysterectomy Cholecystecomy Bladder suspension 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 Tympanoplasty 1987 Lumpectomy of left breast 1979 Coronary stent placement 12/28/2014 status post stent placement in the mid LAD Family history reviewed / updated Family History Problem Relation Cancer Brother lung Cancer Father brain Additional Family History Mother dementia Social history reviewed / updated Social History Substance Use Topics Smoking status: Current Every Day Smoker -- 1.00 packs/day for 47 years Types: Cigarettes Smokeless tobacco: Never Used Comment: quit for 1 year Alcohol Use: No PHYSICAL EXAM: Last Vitals: BP 121/70 | Pulse 79 | Temp 36.5 C (97.7 F) | RR 14 | Ht 1.499 m (4' 11") | Wt 51.71 kg (114 lb) | SpO2 95% | BMI 23.01 kg/(m^2) Body mass index is 23.01 kg/(m^2). General: Patients general appearance: Alert, No distress, Cooperative and Age appropriate Head & Neck/Airway: Normocephalic; atraumatic; PERRL; EOMI; nl appearing ears and nose. Nec k ROM: full TM Distance:Normal Dentition: dentures-upper and missing teeth Cormier: No Mallampati: III Mo uth Opening: > = 3 cm C-Spine: normal Neck Anatomy: Normal Jaw Protrusion: Normal, lower inc isors can protrude past upper incisors Lung Exam: No respiratory distress. Normal breathing pattern. breath sounds normal Cardiac: No murmurs, gallops or rubs. Rhythm: regular Rate: normal Abdominal: General Findings: no abdominal tenderness and Nondistended Bowel Sounds: bowel s ounds are normal Musculoskeletal: Findings: tone normal Neuro/Psych: No focal neuro deficits; Alert and appropriate; nl affect. alert Findings: Mate Chief nial nerves 2-12 intact, Motor 5/5 strength globally with normal tone, Soft & sharp sensatio n normal, No tremor, Alert, oriented to person, place, time and Normal affect Integument: No open rashes or lesions noted. - lesion, rash and open wounds Color: pink Texture: Skin texture - normal Turgor: turgor normal Implants: None, LABS & DATA REVIEWED/ORDERED Labs in Care Everywhere show a normal BMP and CBC on 06/17/2015 EKG: Personally reviewed. NSR< HR 81/min. poor R wave progression ant leads Perioperative risk calculators 2014 ACC/AHA Perioperative Cardiac Risk Stratification (assumes non-emergent, non-cardiac p rocedure) Are active cardiac conditions present? No Calculate the combined surgical and patient-specific risk: using the Field perioperative ca rdiac risk calculator, the risk of major adverse cardiac event (MACE) is: less than 1%. No further risk stratification for coronary disease is indicated. Estimated ASA class 3 ASSESSMENT and RECOMMENDATIONS: Perioperative risk assessment: Cielo Bell is a 65 y.o. female with diagno sis of cranial deformity, scheduled for cranioplasty, right side. Based on the clinical inf ormation obtained and reviewed during this visit, the overall assessment is that the patient is having elective major surgery with identified risk factors. See below. The patient is stable / optimized for surgery. Additional testing/optimization is not needed. Medication management recommendations: The patient was advised to continue all usual med ications except as noted in Patient Instructions (After Visit Summary given to pt) Pre-procedure antibiotic recommendation: Vancomycin 1 gm IV infused over 1 hour (PCN allerg y and/or hx MRSA) (1.5 gm if pt > 90 Kg) CAD -- pt had an NSTEMI Dec 28, 2015 and had coronary stents placed (bare metal) and sh e's on optimal medical mgmt with asa, statin, beta mukul and Plavix. She's been advised t hat she is to stop Plavix about 2 weeks before surgery. Because of her CAD, she should cont inue low dose aspirin, beta mukul and statin. COPD -- fairly advanced, though pt not using any inhalers. She uses supplemental oxygen at night. She might benefit from using Combivent and Advair post op. Prior hx of MRSA (post op infection) post craniotomy. Nasal swab done at today's visit. She should get IV Vanco preop. Ongoing tobacco dependence -- not interested in quitting. Nicotine replacement therapy should be considered post op. Thank you for the opportunity to contribute to this patient's care. Mable Lee MD [facility] PREOPERATIVE MEDICINE CLINIC AT [facility] 4TH FLOOR DAY STAY [address] [facility] [id number] I spent time counseling the pt regarding perioperative risk (cardiac/bleeding/ DVT/ respir atory failure/ infection, etc) and methods to mitigate risk. I advised the patient regardin g NPO requirements, hydration before surgery, showering, general body hygiene. All pre-proc edure instructions given to the patient (after-visit summary). All of patient's questions w ere addressed. The patient verbalized understanding of the instructions given. documented in this e ncounter Procedure Notes Magnolia Diego MD - 10/23/2015 4:36 PM PDTAssociated Order(s): OPERATION RECORDDate of Serv ice: 10/23/2015 Attending Surgeon: Magnolia Diego MD Watch Crystal Cutter(s): Antoinette Del Valle MD, PhD Dameon Scanlon DO Preoperative Diagnosis: 1. History of aneurysmal subarachnoid hemorrhage, status post right pterional craniotomy fo r clipping. 2. History of delayed, post-hemorrhagic hydrocephalus, status post right ventricular perito colleen shunt. 3. Acquired right cranial defect. Postoperative Diagnoses: 1. History of aneurysmal subarachnoid hemorrhage, status post right pterional craniotomy fo r clipping. 2. History of delayed, post-hemorrhagic hydrocephalus, status post right ventricular perito colleen shunt. 3. Acquired right cranial defect. Procedure Performed: Right synthetic cranioplasty. Anesthesia: General. Estimated Blood Loss: 50 mL. Fluids: Per Anesthesia. Complications: None. Specimen: None. Drains: None. Findings: Well-fitting synthetic cranial flap. Ventriculoperitoneal shunt was not manipul ated. Disposition: PACU, then cooper. Indications For Procedure: Cielo Bell is a 65-year-old female with a history of ruptur ed anterior communicating artery aneurysm, status post right pterional clipping, along with post-hemorrhagic hydrocephalus, status post right ventriculoperitoneal shunt in 2007 and 9 respectively. She returned to our clinic recently for followup. At our last clinic appointment in December 2014, she had a right frontal screw protrusion. Unfortunately, just shortly before that appointment she suffered an GA and was placed on as pirin and Plavix and was not cleared for surgery. However, since we last saw her, the skin over that screw has regrown but the screw has actually migrated posteriorly about 1 cm. She also has a significant cranial defect over her previous craniotomy site. As such, she was indicated for the above procedure. The patient was well apprised of all potential risks, be nefits, and complications of the procedure. The patient voiced understanding. A signed con sent form was placed in the patient's chart. Description Of Procedure: The patient was identified in the preoperative area. She was br ought to the operating room on [facility]. She was sedated and intubated without diffi culty by the neuroanesthesia team. Her eyes were taped shut to prevent corneal abrasion. H er head was rested on a horseshoe and turned slightly to the left. Her previous incision wa s identified. The hair over the area was clipped. An incision was re-marked with a marking pen. The area was then prepped and draped in the usual standard sterile fashion. The hailey ent was administered prophylactic IV antibiotics. The incision was incised with a 15 blade. Dissection was carried down to the level of the skull with monopolar electrocautery. Extreme care was taken to avoid cutting through her ri ght ventriculoperitoneal shunt which was immediately adjacent to the incision site. The sona cutaneous flap was then reflected anteriorly. Great care during this maneuver was taken not to manipulate the right ventricular peritoneal shunt, which remained intact throughout the entirety of the procedure. Her previous right pterional craniotomy was identified and there was a significant defect i n the cranial flap. The previous plates and screws were removed. The previous bone flap wa s removed with a footplate drill. The new synthetic skull flap was tented over her previous defects and was noted to fit extremely well. This was attached to the skull with bur hole covers and 4 mm screws. The wound was copiously irrigated. Meticulous hemostasis was achie jacob. The muscle was closed with 0-Vicryl sutures in an interrupted fashion. The galea was closed with 3-0 Vicryl sutures in an inverted, interrupted fashion. The skin was closed in a running fashion with 4-0 Rapide. At the end of the case, all instrumentation, needle, and sponge counts were correct x2. The patient was extubated without difficulty and brought to the PACU in stable condition. Antoinette Adkins MD, PhD MD [facility]/NGUYEN /[id number] I, Dr. Magnolia Diego, was the primary surgeon and in the OR during the critical portions of this procedure. There was no complication. Magnolia Diego MD [facility] [address] [address] rause, Antoinette Gomez MD,PhD - 10/23/2015 10:08 AM PDTAssociated Order(s): PROCEDURE NOTEINPATIENT PHYSICIAN OPERATION RE PORT Procedure Date: 10/23/2015 Author: Antoinette Adkins MD,PhD Attending Physician: Cecile TRINIDAD Assistants: Capo Adkins MD, DO Prior to the beginning of the procedure, the team paused to verify the patient s identity , the procedure to be performed (in accordance with the consent,) and the correct side/site. The patient was positioned appropriately. All relevant images and results were properly lab eled and displayed. We addressed antibiotic prophylaxis and fluids for irrigation as applica ble to this patient. Any safety precautions were addressed. Preoperative Diagnosis: 1. 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 Hx of delayed post hemorrhagic hydrocephalus, s/p R VPS shunt 3. Aquired right cranial defect Postoperative Diagnosis: same Procedure Performed: Right synthetic cranioplasty Anesthesia: general Estimated Blood Loss: 50 ml Fluids: per anesthesia Complications: none Specimens: none Drains: none Findings: well finding synthetic cranial flap. VPS was not manipulated Disposition: PACU, cooper Antoinette Adkins MD,PhD [id number] signed by Magnolia Diego MD at 10/24/2015 8:28 AM PDTdocumented in this encounter Miscellaneous Notes Plan of Care - Ba Madrigal RN - 10/25/2015 12:23 PM PDTNursing Discharge Note Discharge Date: 10/25/2015 Additional Discharge Information: Pt. DC'd home by daughter. VSS. All belongings sent home. AVS & DC instructions reviewed with pt. Pain controled with oral pain meds. Discharge Nurse: Ba Madrigal RN lan of Care - Ba Madrigal RN - 10/25/2015 7:54 AM PDTProblem: General Plan of Care (Adult) Intervention: NPEOC Acute Goals: 1. Cielo will be safe and free from falls/injury 2. Prevent infection and post-op complicaitons 3. Cielo's stated goal is to discharge as soon as possible this morning Interventions: 1. Ensure pt is utilizing strategies to keep her safe (not rising quickly, adequate footwea r etc.) and educate her of the risk of falls 2. Assess VS q4hr, monitor incision site for any changes in appearance and do cares as orde red, monitor labs, notify NSU of any changes 3. Provide discharge teaching and let the team know of patients wishes. andoff - Carmella Arriola RN - 10/25/2015 2:22 AM PDTNursing Handoff Patient Daily Goal: to be able to sleep tonight (10/24/152039) [facility] IP NURSE HANDOFF: Nesbitt hospital course events: Cielo Bell is a 65 y/o F smoker w / hx COPD, CAD w/ GA s/p Stents in Dec 2014, with hx of rupture Acomm aneurysm s/p clipping in 2007. 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 She was seen i neurosurgery clinic for follow up in Dec 2014 shortly after her GA. At that clinic appt , she was noted to have a Right frontal screw protrusion. Due to her recent GA and bare metal stent placement, she was on ASA/plavix, and was not cleared for neurosurgical procedu re at the time in Dec 2014. By her next appt in Sep 22, the skin over the screw had regrow n, and the screw has actually migrated posteriorly about 1 cm. She also had a significant castillo nken cranial defect and was indicated for synthetic cranioplasty. Pt underwent Right synthetic cranioplasty 10/23/15 and is admitted to NSICU post-operatively. SAFETY Patient Target: Patient will remain free from falls. Progress to Target: No Change As evidenced by: Pt has been up independent in room during the day and she called appropriately during [facility] too. As evidenced by: NURSING ASSESSMENT & RECOMMENDATIONS FORWARD Nursing Assessment of Patient Stability Risk: Moderately stable Recommendations Forward: Discharge today Yeyo - Smiley Madrigal RN - 10/24/2015 6:47 PM PDTNursing Handoff Patient Daily Goal: go out and smoke (10/24/15 1506) [facility] IP NURSE HANDOFF: Nesbitt hospital course events: Cielo Bell is a 65 y/o F smoker w / hx COPD, CAD w/ GA s/p Stents in Dec 2014, with hx of rupture Acomm aneurysm s/p clipping in 2007. 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 She was seen i neurosurgery clinic for follow up in Dec 2014 shortly after her GA. At that clinic appt , she was noted to have a Right frontal screw protrusion. Due to her recent GA and bare metal stent placement, she was on ASA/plavix, and was not cleared for neurosurgical procedu re at the time in Dec 2014. By her next appt in Sep 22, the skin over the screw had regrow n, and the screw has actually migrated posteriorly about 1 cm. She also had a significant castillo nken cranial defect and was indicated for synthetic cranioplasty. Pt underwent Right synthetic cranioplasty 10/23/15 and is admitted to NSICU post-operatively. SAFETY Patient Target: Patient will remain free from falls. Progress to Target: No Change As evidenced by: Pt has been up independent in room during the day but may be safer with a bed alarm at [facility] COMFORT/ANXIETY/BEHAVIOR Patient Target: Patient will be free of pain. As evidenced by: Denying pain. Did not require pain medication. NURSING ASSESSMENT & RECOMMENDATIONS FORWARD Nursing Assessment of Patient Stability Risk: Moderately stable Recommendations Forward: Discharge in the morning Saskia Balderas RN - 10/24/2015 2:04 PM PDTNursing Handoff Patient Daily Goal: to go home (10/24/15 0800) [facility] IP NURSE HANDOFF: Nesbitt hospital course events: PMHx: long-time smoker, COPD on home O2 during sleep, CAD w/ GA s/p Stents in Dec 2014, rupture Acomm aneurysm s/p clipping in 2007 and subsequent cranial defect. 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 Admit to NSICU 10/23/15 post-operatively after Right synthetic cranioplasty 10/23/15 SAFETY Patient Target: Patient will remain free from falls. Progress to Target: Improving As evidenced by: Pt ambulating independently in her room this shift. We went on a walk around the NSICU un it this morning and she was steady on her feet. COMFORT/ANXIETY/BEHAVIOR Patient Target: Patient will be free of pain. Progress to Target: No Change As evidenced by: Denying pain except for irritation at IV sites, especially with flushing. L Wr PIV remove d as it was most irritating. She also has minor complaints of discomfort related to being in bed, which are relieved with position changes and getting up and out of bed. NURSING ASSESSMENT & RECOMMENDATIONS FORWARD Nursing Assessment of Patient Stability Risk: Moderately stable Recommendations Forward: Continue to encourage self-paced activity. Monitor R Wr PIV, avoid IV meds if you can help it for pt comfort. &P Compiled Note - Jessica rao, ANSON Bella - 10/24/2015 11:58 AM PDTNervous Communicating hydrocephalus Assessment & Plan -Has R frontal VPS in situ, last revised in 2008. -per NSGY, no compromise of shunt system during the 10/22 cranioplasty surgery. Head/Neck * Skull defect Assessment & Plan -Admitted to NSICU s/p R synthetic crani; Dr. Diego primary. -Q 4 hr neuro checks and vitals. -cooper status; will likely d/c home today per NSGY. -pain and nausea meds as per APR. -post op CT imaging per neurosurgery--scan shows stable post op findings, encephalomalacia. -reconciled home meds. -incisional wound care as per NSGY protocol. Cardiovascular HTN (hypertension) Assessment & Plan -Goal SBP < 160 -continue home metop XL 25 mg daily Respiratory/Chest Chronic obstructive pulmonary disease (HCC) Assessment & Plan -pt takes no regular COPD meds at home. -got Albuterol MDI in OR prior to extubation -Uses 2L O2 NC nightly at home. -Albuterol MDI 2 puffs q 4 hr PRN for wheeze/SOB Endocrine/Metabolic Hyperglycemia Assessment & Plan -Goal CBG < 180 -Aggressive sliding scale Lispro Other Continuous tobacco abuse Assessment & Plan -smokes 1 PPD x 50 yrs -not interested in quitting ssessment & Bj n Note - Frances Mcfadden PA - 10/24/2015 11:58 AM PDTAssociated Problem(s): Skull defe ct-[facility]; Dr. Diego primary. -Q 4 hr neuro checks and vitals. -cooper status; will likely d/c home today per NSGY. -pain and nausea meds as per APR. -post op CT imaging per neurosurgery--scan shows stable post op findings, encephalomalacia. -reconciled home meds. -incisional wound care as per NSGY protocol. ssessment & Bj n Note - Francse Mcfadden PA - 10/24/2015 11:57 AM PDTAssociated Problem(s): Hyperglyce sue (Resolved 05/08/2018)-Goal CBG < 180 -Aggressive sliding scale Lispro ssessment & Bj n Note - Frances Mcfadden PA - 10/24/2015 11:57 AM PDTAssociated Problem(s): Smoker-smo kes 1 PPD x 50 yrs -not interested in quitting ssessment & Plan Note - Frances Mcfadden PA - 10/24/2015 11:57 AM PDTAssoc iated Problem(s): Communicating hydrocephalus (HCC) (Resolved 05/09/2018)-Has R frontal VPS i n situ, last revised in 2008. -per NSGY, no compromise of shunt system during the 10/22 cranioplasty surgery. ssessment & Plan Note - Frances Jernigan PA - 10/24/2015 11:56 AM PDTAssociated Problem(s): Chronic obstructive pulmo nary disease (HCC)-pt takes no regular COPD meds at home. -got Albuterol MDI in OR prior to extubation -Uses 2L O2 NC nightly at home. -Albuterol MDI 2 puffs q 4 hr PRN for wheeze/SOB lan of Jaylon Wilburn PT - 10/24/2015 11:06 AM PDTP hysical Therapy Contact Note: Observed pt ambulating independently throughout unit. No indication for skilled PT. aJylon Amor PT, DPT Pager: [phone] lan of Chris Abbott RN - 10/24/2015 9:25 AM PDTProblem: Case Management Goals Goal: Discharge Needs Met Case Management Initial Assessment Reason for Admission: cranioplasty Admitted From: home Emergency Contact: Extended Emergency Contact Information Primary Emergency Contact: Augusto Bell Relation: Son/Daughter Secondary Emergency Contact: Venessa Gerard Mobile Relation: Son/Daughter Past Medical History: Other acquired deformity of head [M95.2], CRANIOPLASTY WITH CUSTOM IM PLANT Lives With: alone Living Arrangement: house Functional Level Prior to Admission: 0-->independent Transportation Available: family or friend will provide Equipment Currently used at Home/DME Provider: O2 (at night) Home Health/Infusion Agency: Insurance/Funding: @PAYORNAME@, Assessment: per H&P POD #1 s/p Right synthetic cranioplasty Anticipated Discharge Needs: Anticipated Discharge Disposition: home with assist Assessment done by: Chris Beckett RN andoff - Stevie Roberts RN - 10/24/2015 4:30 AM PDTNursing Handoff Patient Daily Goal: Recover (10/23/15 1500) [facility] IP NURSE HANDOFF: Nesbitt hospital course events: Cielo Bell is a 65 y/o F smoker w / hx COPD, CAD w/ GA s/p Stents in Dec 2014, with hx of rupture Acomm aneurysm s/p clipping in 2007. 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 She was seen i neurosurgery clinic for follow up in Dec 2014 shortly after her GA. At that clinic appt , she was noted to have a Right frontal screw protrusion. Due to her recent GA and bare metal stent placement, she was on ASA/plavix, and was not cleared for neurosurgical procedu re at the time in Dec 2014. By her next appt in Sep 22, the skin over the screw had regrow n, and the screw has actually migrated posteriorly about 1 cm. She also had a significant castillo nken cranial defect and was indicated for synthetic cranioplasty. Pt underwent Right synthetic cranioplasty 10/23/15 and is admitted to NSICU post-operatively. SAFETY Patient Target: Patient will remain free from falls. Progress to Target: No Change As evidenced by: Patient exited the bed once unsupervised. I instructed to use the call light when a nurse isn't immediately available, and explained he risks of falling from lines/cords. COMFORT/ANXIETY/BEHAVIOR Patient Target: Patient will be free of pain. As evidenced by: Denying pain except for Jaw pressure when coughing. Did not require pain medication. NURSING ASSESSMENT & RECOMMENDATIONS FORWARD Nursing Assessment of Patient Stability Risk: Moderately stable Recommendations Forward: Transfer CP (Advance Care Plann ing) - Frances Mcfadden PA - 10/23/2015 5:43 PM PDTFormatting of this note might be di fferent from the original. . Neuroscience Intensive Care Unit Goal of Care / Advance Care NSICU ASSIGNED #[id number] Date: 10/23/2015 Advanced Directives: The patient does not have an advance directive in the EMR. A POLST is not indicated in the EMR. Healthcare Agent(s): Surrogate decision maker has been identified and is : Venessa Gerard (Daughter) . The surrogate decision maker has been listed as the emergency contact within [facility]. Code Status: Current Code Status Date Active Code Status Order ID Comments User Context 10/23/2015 3:47 PM Full Code [id number] Antoinette Adkins MD,PhD Inpatient Code History: Code Status History Date Active Date Inactive Code Status Order ID Comments User Context 10/23/2015 6:46 AM 10/23/2015 3:47 PM Full Code [id number] Tommie Bliss Inpatient 06/07/2014 9:11 AM 06/08/2014 6:06 PM Full Code [id number] Angel Mazariegos MD Inpatient 06/07/2014 6:13 AM 06/07/2014 9:11 AM Full Code [id number] Beny Cruz MD Inpatient 05/13/2008 4:34 PM 05/14/2008 7:21 PM Full Code [id number] Alli Junior MD Inpatient 04/11/2008 5:27 PM 04/13/2008 11:04 PM Full Code [id number] Saskia Nguyen RN Inpatient 03/03/2008 1:17 PM 03/08/2008 10:09 PM Full Code [id number] To Prieto MD Inpatient 03/03/2008 1:16 PM 03/03/2008 1:16 PM DNR/DNI [id number] To Prieto MD Inpatient 03/03/2008 12:06 AM 03/03/2008 1:16 PM Full Code [id number] Marlon Mcintyre MD Inpatient 10/30/2007 10:53 PM 11/02/2007 8:59 PM Full Code [id number] Antoinette Saenz RN Inpatient 10/18/2007 5:01 AM 10/30/2007 10:53 PM Full Code [id number] Norberto Bolaños Inpatient Narrative Summary of Conversation: Patient able to participate in medical decision making The advance directive plan was not discussed with the patient POLST was not reviewed with patient. Code status was reviewed with the patient. Code status is in this note. FULL CODE Decisions and Plan: End of life care discussion was not held with the patient. ANSON Irvin ssessment & Bj n Note - Haven Wilson [facility] - 10/23/2015 5:12 PM PDTAssociated Problem(s): HTN (hyperten gabriel)-Goal SBP < 160 -continue home metop XL 25 mg dailyElectronically signed by KOKO Tsang at 016 5:12 PM PDTAssessment & Plan Note - Frances Mcfadden PA - 10/23/2015 5:07 PM PDTA ssociated Problem(s): Hyperglycemia (Resolved 05/08/2018)-Goal CBG < 180 -Aggressive sliding scale Lispro ssessment & Bj n Note - Frances Mcfadden PA - 10/23/2015 5:04 PM PDTAssociated Problem(s): HTN (hyper tension)-Goal SBP < 160 -continue home metop XL 25 mg dailyElectronically signed by ANSON Irvin at 02/2015 5:04 PM PDTAssessment & Plan Note - Frances Mcfadden PA - 10/23/2015 5:03 PM P DTAssociated Problem(s): Smoker-smokes 1 PPD x 50 yrs -not interested in quitting ssessment & Plan Note - Frances Mcfadden PA - 10/23/2015 5:02 PM PDTAssoc iated Problem(s): Communicating hydrocephalus (HCC) (Resolved 05/09/2018)-Has R frontal VPS i n situ, last revised in 2008. -per NSGY, no compromise of shunt system during today's cranioplasty surgery. ssessment & Plan Note - Frances Jernigan PA - 10/23/2015 5:02 PM PDTAssociated Problem(s): Chronic obstructive pulmo nary disease (HCC)-pt takes no regular COPD meds at home. -got Albuterol MDI in OR prior to extubation -Uses 2L O2 NC nightly at home. -Albuterol MDI 2 puffs q 4 hr PRN for wheeze/SOB ssessment & Plan Note - Frances Mcfadden PA - 10/23/19 16 4:51 PM PDTAssociated Problem(s): Skull defect-[facility] R [facility]; Dr. Diego primary. -Q 1 hr neuro checks and vitals. -pain and nausea meds as per APR. -post op CT imaging per neurosurgery--scan shows stable post op findings, encephalomalacia. -reconcile home meds. -incisional wound care as per NSGY protocol. &P Compiled Not e - Frances Mcfadden PA - 10/23/2015 4:08 PM PDTNervous Communicating hydrocephalus Assessment & Plan -Has R frontal VPS in situ, last revised in 2008. -per NSGY, no compromise of shunt system during today's cranioplasty surgery. Head/Neck * Skull defect Assessment & Plan -[facility]; Dr. Diego primary. -Q 1 hr neuro checks and vitals. -pain and nausea meds as per APR. -post op CT imaging per neurosurgery--scan shows stable post op findings, encephalomalacia. -reconcile home meds. -incisional wound care as per NSGY protocol. Cardiovascular HTN (hypertension) Assessment & Plan -Goal SBP < 160 -continue home metop XL 25 mg daily Respiratory/Chest Chronic obstructive pulmonary disease (HCC) Assessment & Plan -pt takes no regular COPD meds at home. -got Albuterol MDI in OR prior to extubation -Uses 2L O2 NC nightly at home. -Albuterol MDI 2 puffs q 4 hr PRN for wheeze/SOB Endocrine/Metabolic Hyperglycemia Assessment & Plan -Goal CBG < 180 -Aggressive sliding scale Lispro Other Continuous tobacco abuse Assessment & Plan -smokes 1 PPD x 50 yrs -not interested in quitting andoff - Darron Mc RN - 10/23/2015 12:20 PM PDTFormatting of this note might be different from the or iginal. .Meets Phase I Discharge Criteria (Stable For Transfer): Yes Major deviations/events or pertinent findings of eddie-operative stay: pt remains sleepy but arousable. Oriented x4. FORBES. PERRLA. Pt denies pain. 1 episode of nausea that was treate d with 6.25 Phenergan. Anticipated post-op needs/devices/follow up: Labs sent in PACU, please follow up with resul ts - resent renal panel due to hemolyzed sample. CT scan completed. IV 0.9 NS with 20K at 10 0ml per Hr. Goins removed around 1020. Patient does wear 2L home 02 at HS, was only 91 % on RA this morning. Patient did not take morning BP meds - did have a dose of metoprolol at end of OR case. Have not given anything by mouth yet - swallow eval prior. Next Vanco will be d ue around 1945. CBG on labs 159 (goal < 180). 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 Goiter 06/06/2014 Coronary arteriosclerosis in [place] artery 03/06/2015 Acute [id number]-[id number] myocardial infarction ([facility]) 12/28/2014 Resolved Ambulatory Problems Diagnosis Date Noted GERD (gastroesophageal reflux disease) 10/24/2007 Past Medical History Diagnosis Date Essential hypertension Tobacco dependence COPD CVA (cerebral vascular accident) ([facility]) 2007 Subarachnoid hemorrhage due to ruptured aneurysm ([facility]) 2007 Benign neoplasm of major salivary glands CAD in [place] artery Abnormal LFTs (liver function tests) MRSA (methicillin resistant staph aureus) culture positive Continuous tobacco abuse Past Surgical History Procedure Laterality Date Partial thyroidectomy Right Hysterectomy Cholecystecomy Bladder suspension 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 * No Diagnosis Codes entered * Surgical Procedure Planned - Actual Procedure Performed: Procedure(s) with comments: CRANIOPLASTY WITH CUSTOM IMPLANT - RIGHT SYNTHETIC CRANIOPLASTY Anesthesia: General Length of procedure: In Room/Out of Room: 2 Hr 39 Min 7 Sec Surgeon(s) and Role: * Magnolia Diego MD - Primary * Dameon Scanlon DO - Fellow OR positioning comments: please see OR notes Neuro: POSS Sedation Level: Slighty Drowsy Last pain medication given: Pain medication totals: none given in PACU Additional pain medication information: none given Functional Epidural: No SCOUT PROFESSIONAL SPORTS: No Respiratory: RR: 18, O2 Sat: 94 %, O2 Delivery: Oxymask 5L Breath Sounds: WDL Except DARIEN: clear LLL: diminished RUL: clear RLL: diminished MELISSA No Comment: Cardiac: BP: 111/60 mmHg HR: 71 GI: Nausea/Vomiting Status: No Signs/Symptoms: intermittent nausea Interventions: antiemetic given;environmental adjustment;slow, deep breathing encouraged;HO B elevated Assessment: relief of signs/symptoms Comments: : Last void: via goins catheter in OR, catheter removed prior to PACU Contact Name: Linda (daughter) Contact Number: [phone] Family contacted: Yes Comment: Update given to pt's Linda hoyos. Belongings: Dentures, HHN, glasses androhith - Anika Pollack RN - 10/23/2015 10:58 AM PDT.Meets Phase I Discharge Criteria (Stable For Transfer): Major deviations/events or pertinent findings of eddie-operative stay: pt remains sleepy but arousable. Oriented x4. FORBES. Pt denies pain. No nausea/vomiting. Anticipated post-op needs/devices/follow up: Labs sent in PACU, please follow up with resul ts. * No Diagnosis Codes entered * Surgical Procedure Planned - Actual Procedure Performed: Procedure(s) with comments: CRANIOPLASTY WITH CUSTOM IMPLANT - RIGHT SYNTHETIC CRANIOPLASTY Anesthesia: General Length of procedure: In Room/Out of Room: 2 Hr 39 Min 7 Sec Surgeon(s) and Role: * Magnolia Diego MD - Primary * Dameon Scanlon DO - Fellow OR positioning comments: please see OR notes Neuro: POSS Sedation Level: Slighty Drowsy Last pain medication given: Pain medication totals: none given Additional pain medication information: none given Functional Epidural: No SCOUT PROFESSIONAL SPORTS: No Respiratory: RR: 24, O2 Sat: 96 %, O2 Delivery: Oxymask Breath Sounds: WDL Except DARIEN: clear LLL: diminished RUL: clear RLL: diminished MELISSA No Comment: Cardiac: BP: 134/66 mmHg HR: 77 GI: Nausea/Vomiting Status: No Signs/Symptoms: Interventions: Assessment: Comments: : Last void: via goins catheter in OR, catheter removed prior to PACU Contact Name: Linda (daughter) Contact Number: [phone] Family contacted: Yes Comment: Update given to pt's Linda hoyos. Belongings: documented in this encou nter Plan of Treatment Not on filedocumented as of this encounter Procedures + +--------+ + + + | Procedure Name | Priori | Date/Time | Associated Diagnosis | Comments | | | ty | | | | + +--------+ + + + | CAPILLARY BLOOD | Routin | 10/25/2015 | Skull defect | Results for this | | GLUCOSE (NO CHG), | e | 9:21 AM | | procedure are in the | | POC | | PDT | | results section. | + +--------+ + + + | CBC (HEMOGRAM) ONLY | Urgent | 10/25/2015 | | Results for this | | | | 6:51 AM | | procedure are in the | | | | PDT | | results section. | + +--------+ + + + | CBC ONLY | Urgent | 10/25/2015 | | Results for this | | | | 6:51 AM | | procedure are in the | | | | PDT | | results section. | + +--------+ + + + | CAPILLARY BLOOD | Routin | 10/24/2015 | Skull defect | Results for this | | GLUCOSE (NO CHG), | e | 10:47 PM | | procedure are in the | | POC | | PDT | | results section. | + +--------+ + + + | CAPILLARY BLOOD | Routin | 10/24/2015 | Skull defect | Results for this | | GLUCOSE (NO CHG), | e | 6:56 PM | | procedure are in the | | POC | | PDT | | results section. | + +--------+ + + + | CAPILLARY BLOOD | Routin | 10/24/2015 | Skull defect | Results for this | | GLUCOSE (NO CHG), | e | 11:07 AM | | procedure are in the | | POC | | PDT | | results section. | + +--------+ + + + | OPERATION RECORD | | 10/24/2015 | | Results for this | | | | 8:27 AM | | procedure are in the | | | | PDT | | results section. | + +--------+ + + + | CAPILLARY BLOOD | Routin | 10/24/2015 | Skull defect | Results for this | | GLUCOSE (NO CHG), | e | 8:07 AM | | procedure are in the | | POC | | PDT | | results section. | + +--------+ + + + | CBC (HEMOGRAM) ONLY | Urgent | 10/24/2015 | | Results for this | | | | 12:16 AM | | procedure are in the | | | | PDT | | results section. | + +--------+ + + + | RENAL FUNCTION SET | Urgent | 10/24/2015 | | Results for this | | (NA,K,CL,CO2,BUN,CRE | | 12:16 AM | | procedure are in the | | AT,GLUC,CA,PHOS,ALB | | PDT | | results section. | | ) | | | | | + +--------+ + + + | CBC ONLY | Urgent | 10/24/2015 | | Results for this | | | | 12:16 AM | | procedure are in the | | | | PDT | | results section. | + +--------+ + + + | MAGNESIUM, PLASMA | Urgent | 10/24/2015 | | Results for this | | | | 12:16 AM | | procedure are in the | | | | PDT | | results section. | + +--------+ + + + | CARDIOLOGY | | 10/24/2015 | | Results for this | | | | 12:00 AM | | procedure are in the | | | | PDT | | results section. | + +--------+ + + + | CAPILLARY BLOOD | Routin | 10/23/2015 | Skull defect | Results for this | | GLUCOSE (NO CHG), | e | 10:00 PM | | procedure are in the | | POC | | PDT | | results section. | + +--------+ + + + | PROCEDURE NOTE | Routin | 10/23/2015 | | Results for this | | | e | 4:34 PM | | procedure are in the | | | | PDT | | results section. | + +--------+ + + + | PROCEDURE NOTE | Routin | 10/23/2015 | | Results for this | | | e | 3:01 PM | | procedure are in the | | | | PDT | | results section. | + +--------+ + + + | RENAL FUNCTION SET | Urgent | 10/23/2015 | | Results for this | | (NA,K,CL,CO2,BUN,CRE | | 11:54 AM | | procedure are in the | | AT,GLUC,CA,PHOS,ALB | | PDT | | results section. | | ) | | | | | + +--------+ + + + | CT HEAD WO CONTRAST | Urgent | 10/23/2015 | | Results for this | | | | 11:38 AM | | procedure are in the | | | | PDT | | results section. | + +--------+ + + + | CBC (HEMOGRAM) ONLY | Urgent | 10/23/2015 | | Results for this | | | | 10:34 AM | | procedure are in the | | | | PDT | | results section. | + +--------+ + + + | INR | Urgent | 10/23/2015 | | Results for this | | | | 10:34 AM | | procedure are in the | | | | PDT | | results section. | + +--------+ + + + | RENAL FUNCTION SET | Urgent | 10/23/2015 | | Results for this | | (NA,K,CL,CO2,BUN,CRE | | 10:34 AM | | procedure are in the | | AT,GLUC,CA,PHOS,ALB | | PDT | | results section. | | ) | | | | | + +--------+ + + + | CBC ONLY | Urgent | 10/23/2015 | | Results for this | | | | 10:34 AM | | procedure are in the | | | | PDT | | results section. | + +--------+ + + + | CRANIOPLASTY WITH | Electi | 10/23/2015 | [id number] | | | CUSTOM IMPLANT | ve | 7:37 AM | | | | | Surgic | PDT | | | | | al | | | | + +--------+ + + + | CAPILLARY BLOOD | Routin | 10/23/2015 | Skull defect | Results for this | | GLUCOSE (NO CHG), | e | 7:24 AM | | procedure are in the | | POC | | PDT | | results section. | + +--------+ + + + | CBC (HEMOGRAM) ONLY | Urgent | 10/23/2015 | | Results for this | | | | 6:53 AM | | procedure are in the | | | | PDT | | results section. | + +--------+ + + + | INR | Urgent | 10/23/2015 | | Results for this | | | | 6:53 AM | | procedure are in the | | | | PDT | | results section. | + +--------+ + + + | BASIC METABOLIC SET | Urgent | 10/23/2015 | | Results for this | | (NA, K, CL, TCO2, | | 6:53 AM | | procedure are in the | | BUN, CR, GLU, CA) | | PDT | | results section. | + +--------+ + + + | CBC ONLY | Urgent | 10/23/2015 | | Results for this | | | | 6:53 AM | | procedure are in the | | | | PDT | | results section. | + +--------+ + + + | APTT (ACT. PART. | Urgent | 10/23/2015 | | Results for this | | THROMBO TIME) | | 6:53 AM | | procedure are in the | | | | PDT | | results section. | + +--------+ + + + | CARDIOLOGY | | 10/23/2015 | | Results for this | | | | 12:00 AM | | procedure are in the | | | | PDT | | results section. | + +--------+ + + + documented in this encounter Results CAPILLARY BLOOD GLUCOSE (NO CHG), POC (10/25/2015 9:21 AM PDT) + +---------+ + + + | Component | Value | Ref Range | Performed | Pathologist | | | | | At | Signature | + +---------+ + + + | BLOOD | 106 (H) | 60 - 99 mg/dL | [...] + + + + + | [facility] | [address] | [place], [place] | | | [facility] | [address] | [address] | | | TESTS | | | | + + + + + CBC (HEMOGRAM) ONLY (10/25/2015 6:51 AM PDT) + + + + + + | Component | Value | Ref Range | Performed | Pathologist | | | | | At | Signature | + + + + + + | WHITE CELL | 11.87 (H) | 4.40 - 11.00 | [facility] | | | COUNT | | K/cu mm | LABORATORY | | | | | | SERVICES, | | | | | | CORE | | + + + + + + | RED CELL | 3.42 (L) | 4.00 - 5.20 | [facility] | | | COUNT | | M/cu mm | LABORATORY | | | | | | SERVICES, | | | | | | CORE | | + + + + + + | HEMOGLOBIN | 10.6 (L) | 12.0 - 16.0 | [facility] | | | | | g/dL | LABORATORY | | | | | | SERVICES, | | | | | | CORE | | + + + + + + | HEMATOCRIT | 32.4 (L) | 36.0 - 46.0 % | [facility] | | | | | | LABORATORY | | | | | | SERVICES, | | | | | | CORE | | + + + + + + | MCV | 94.7 | 80.0 - 96.0 fL | [facility] | | | | | | LABORATORY | | | | | | SERVICES, | | | | | | CORE | | + + + + + + | MCHC | 32.7 | 33.0 - 35.5 | [facility] | | | | | g/dL | LABORATORY | | | | | | SERVICES, | | | | | | CORE | | + + + + + + | RDW SD | 47.6 (H) | 35.1 - 46.3 fL | [facility] | | | | | | LABORATORY | | | | | | SERVICES, | | | | | | CORE | | + + + + + + | PLATELET | 152 | 150 - 400 K/cu | [facility] | | | COUNT | | mm | LABORATORY | | | | | | SERVICES, | | | | | | CORE | | + + + + + + | MPV | 11.5 | 9.7 - 12.3 fL | [facility] [...] | + + + + + | [facility] | [address] | [place] [address] | | | SERVICES, CORE | [address] | | | + + + + + CAPILLARY BLOOD GLUCOSE (NO CHG), POC (10/24/2015 10:47 PM PDT) + +---------+ + + + | Component | Value | Ref Range | Performed | Pathologist | | | | | At | Signature | + +---------+ + + + | BLOOD | 122 (H) | 60 - 99 mg/dL | [facility] - | | | GLUCOSE, | | [...] + + + + + | [facility] | [address] | [place], [place] | | | [facility] | [address] | [address] | | | TESTS | | | | + + + + + CAPILLARY BLOOD GLUCOSE (NO CHG), POC (10/24/2015 6:56 PM PDT) + +---------+ + + + | Component | Value | Ref Range | Performed | Pathologist | | | | | At | Signature | + +---------+ + + + | BLOOD | 122 (H) | 60 - 99 mg/dL | [...] | [facility] | [address] | [place], [place] | | | [facility] | [address] | [address] | | | TESTS | | | | + + + + + CAPILLARY BLOOD GLUCOSE (NO CHG), POC (10/24/2015 11:07 AM PDT) + +---------+ + + + | Component | Value | Ref Range | Performed | Pathologist | | | | | At | Signature | + +---------+ + + + | BLOOD | 119 (H) | 60 - 99 mg/dL | [...] + + + + + | [facility] | [address] | [place], [place] | | | [facility], PO[facility] CARE | [address] | [phone] | | | TESTS | | | | + + + + + OPERATION RECORD (10/24/2015 8:27 AM PDT) + + | Transcriptions | + + | Magnolia Diego MD - 10/23/2015 4:36 PM PDT Date of Service: 10/23/2015 Attending | | Surgeon: Magnolia Diego MD Watch Crystal Cutter(s): Antoinette Del Valle MD, PhD Raed B | | DO Capo Preoperative Diagnosis: 1. History of aneurysmal subarachnoid hemorrhage, | | status post right pterional craniotomy for clipping.2. History of delayed, | | post-hemorrhagic hydrocephalus, status post right ventricular peritoneal shunt.3. | | Acquired right cranial defect.Postoperative Diagnoses: 1. History of aneurysmal | | subarachnoid hemorrhage, status post right pterional craniotomy for clipping.2. History | | of delayed, post-hemorrhagic hydrocephalus, status post right ventricular peritoneal | | shunt.3. Acquired right cranial defect.Procedure Performed: Right synthetic | | cranioplasty.Anesthesia: General.Estimated Blood Loss: 50 mL.Fluids: Per | | Anesthesia.Complications: None.Specimen: None.Drains: None.Findings: Well-fitting | | synthetic cranial flap. Ventriculoperitoneal shunt was not manipulated.Disposition: | | PACU, then cooper.Indications For Procedure: Cielo Bell is a 65-year-old female with | | a history of ruptured anterior communicating artery aneurysm, status post right | | pterional clipping, along with post-hemorrhagic hydrocephalus, status post right | | ventriculoperitoneal shunt in 2007 and 2008 respectively. She returned to our clinic | | recently for followup. At our last clinic appointment in December 2014, she had a right | | frontal screw protrusion. Unfortunately, just shortly before that appointment she | | suffered an GA and was placed on aspirin and Plavix and was not cleared for surgery. | | However, since we last saw her, the skin over that screw has regrown but the screw has | | actually migrated posteriorly about 1 cm. She also has a significant cranial defect | | over her previous craniotomy site. As such, she was indicated for the above procedure. | | The patient was well apprised of all potential risks, benefits, and complications of | | the procedure. The patient voiced understanding. A signed consent form was placed in | | the patient's chart.Description Of Procedure: The patient was identified in the | | preoperative area. She was brought to the operating room on [facility]. She was | | sedated and intubated without difficulty by the neuroanesthesia team. Her eyes were | | taped shut to prevent corneal abrasion. Her head was rested on a horseshoe and turned | | slightly to the left. Her previous incision was identified. The hair over the area was | | clipped. An incision was re-marked with a marking pen. The area was then prepped and | | draped in the usual standard sterile fashion. The patient was administered prophylactic | | IV antibiotics. The incision was incised with a 15 blade. Dissection was carried down | | to the level of the skull with monopolar electrocautery. Extreme care was taken to | | avoid cutting through her right ventriculoperitoneal shunt which was immediately | | adjacent to the incision site. The myocutaneous flap was then reflected anteriorly. | | Great care during this maneuver was taken not to manipulate the right ventricular | | peritoneal shunt, which remained intact throughout the entirety of the procedure. Her | | previous right pterional craniotomy was identified and there was a significant defect in | | the cranial flap. The previous plates and screws were removed. The previous bone flap | | was removed with a footplate drill. The new synthetic skull flap was tented over her | | previous defects and was noted to fit extremely well. This was attached to the skull | | with bur hole covers and 4 mm screws. The wound was copiously irrigated. Meticulous | | hemostasis was achieved. The muscle was closed with 0-Vicryl sutures in an interrupted | | fashion. The galea was closed with 3-0 Vicryl sutures in an inverted, interrupted | | fashion. The skin was closed in a running fashion with 4-0 Rapide. At the end of the | | case, all instrumentation, needle, and sponge counts were correct x2. The patient was | | extubated without difficulty and brought to the PACU in stable condition.Antoinette Adkins, | | , PhDPARIS Woods/SWAPNILLDD: 10/23/2015 15:01:44DT: 10/23/2015 16:36:58Job #: | | [id number], Dr. Magnolia Diego, was the primary surgeon and in the OR during the | | critical portions of this procedure. There was no complication.Magnolia Diego MDOH[facility] | | [id number] [facility] [id number], [place] [id number] | |The new synthetic skull flap was tented over her previous defects and was noted to fit extr thaddeus well. This was attached to the skull with bur hole covers and 4 mm screws. The wound was copiously irrigated. Meticulous | |hemostasis was achieved. The muscle was closed with 0-Vicryl sutures in an interrupted fas hion. The galea was closed with 3-0 Vicryl sutures in an inverted, interrupted fashion. Th e skin was closed in a running | |fashion with 4-0 Rapide. At the end of the case, all instrumentation, needle, and sponge c ounts were correct x2. The patient was extubated without difficulty and brought to the PACU in stable condition. | | | | | | | |Antoinette Adkins MD, PhD | | | | | |Magnolia Diego MD | |KLK/MODL | | | | | | /[id number] | | | |I, Dr. Magnolia Diego, was the primary surgeon and in the OR during the critical portions of this procedure. There was no complication. | | | | | | | |Magnolia Diego MD | |[facility] | |[address] [facility] [address] | |[id number] | |[place] [address] | |[phone] | + + CAPILLARY BLOOD GLUCOSE (NO CHG), POC (10/24/2015 8:07 AM PDT) + +---------+ + + + | Component | Value | Ref Range | Performed | Pathologist | | | | | At | Signature | + +---------+ + + + | BLOOD | 112 (H) | 60 - 99 mg/dL | [...] + + + + + | [facility] | [address] | [place], [place] | | | [facility] | [address] | [address] | | | TESTS | | | | + + + + + CBC (HEMOGRAM) ONLY (10/24/2015 12:16 AM PDT) + + + + + + | Component | Value | Ref Range | Performed | Pathologist | | | | | At | Signature | + + + + + + | WHITE CELL | 17.22 (H) | 4.40 - 11.00 | [facility] | | | COUNT | | K/cu mm | LABORATORY | | | | | | SERVICES, | | | | | | CORE | | + + + + + + | RED CELL | 3.97 (L) | 4.00 - 5.20 | [facility] | | | COUNT | | M/cu mm | LABORATORY | | | | | | SERVICES, | | | | | | CORE | | + + + + + + | HEMOGLOBIN | 12.6 | 12.0 - 16.0 | [facility] | | | | | g/dL | LABORATORY | | | | | | SERVICES, | | | | | | CORE | | + + + + + + | HEMATOCRIT | 38.5 | 36.0 - 46.0 % | [facility] | | | | | | LABORATORY | | | | | | SERVICES, | | | | | | CORE | | + + + + + + | MCV | 97.0 (H) | 80.0 - 96.0 fL | [facility] | | | | | | LABORATORY | | | | | | SERVICES, | | | | | | CORE | | + + + + + + | MCHC | 32.7 | 33.0 - 35.5 | [facility] | | | | | g/dL | LABORATORY | | | | | | SERVICES, | | | | | | CORE | | + + + + + + | RDW SD | 49.9 (H) | 35.1 - 46.3 fL | [facility] | | | | | | LABORATORY | | | | | | SERVICES, | | | | | | CORE | | + + + + + + | PLATELET | 194 | 150 - 400 K/cu | [facility] | | | COUNT | | mm | LABORATORY | | | | | | SERVICES, | | | | | | CORE | | + + + + + + | MPV | 10.5 | 9.7 - 12.3 fL | [facility] [...] [facility] | [address] | [place] [address] | | | JOHNSON, RYAN | [address] | | | + + + + + MAGNESIUM, PLASMA (10/24/2015 12:16 AM PDT) + +-------+ + + + | Component | Value | Ref Range | Performed | Pathologist | | | | | At | Signature | + +-------+ + + + | MAGNESIUM,P | 1.9 | 1.8 - 2.5 mg/dL | [facility] | | | LASMA | | | LABORATORY | | | [...] | + + + + + | [facility] | [address] | [place] [address] | | | SERVICES, CORE | [address] | | | + + + + + RENAL FUNCTION SET (NA,K,CL,CO2,BUN,CREAT,GLUC,CA,PHOS,ALB ) (10/24/2015 12:16 AM PDT) + +---------+ + + + | Component | Value | Ref Range | Performed | Pathologist | | | | | At | Signature | + +---------+ + + + | GLUCOSE, | 118 (H) | 60 - 99 mg/dL | [facility] | | | PLASMA | | | LABORATORY | | | (LAB) | | | SERVICES, | | | | | | CORE | | + +---------+ + + + | BUN, PLASMA | 12 | 6 - 20 mg/dL | [facility] | | | (LAB) | | | LABORATORY | | | | | | SERVICES, | | | | | | CORE | | + +---------+ + + + | CREATININE | 0.87 | 0.60 - 1.10 | [facility] | | | PLASMA | | mg/dL | LABORATORY | | | (LAB) | | | SERVICES, | | | | | | CORE | | + +---------+ + + + | EGFR | >60 | >60 mL/min | [facility] | | | - | | | LABORATORY | | | [place] | | | SERVICES, | | | | | | CORE | | + +---------+ + + + | EGFR NON | >60 | >60 mL/min | [facility] | | | -[facility] | | | LABORATORY | | | [place] | | | SERVICES, | | | | | | CORE | | + +---------+ + + + | SODIUM, | 141 | 136 - 145 | [facility] | | | PLASMA | | mmol/L | LABORATORY | | | (LAB) | | | SERVICES, | | | | | | CORE | | + +---------+ + + + | POTASSIUM, | 4.6 | 3.4 - 5.0 | [facility] | | | PLASMA | | mmol/L | LABORATORY | | | (LAB) | | | SERVICES, | | | | | | CORE | | + +---------+ + + + | CHLORIDE, | 108 | 97 - 108 mmol/L | [facility] | | | PLASMA | | | LABORATORY | | | (LAB) | | | SERVICES, | | | | | | CORE | | + +---------+ + + + | TOTAL CO2, | 27 | 21 - 32 mmol/L | [facility] | | | PLASMA | | | LABORATORY | | | (LAB) | | | SERVICES, | | | | | | CORE | | + +---------+ + + + | CALCIUM, | 8.1 (L) | 8.6 - 10.2 | [facility] | | | PLASMA | | mg/dL | LABORATORY | | | (LAB) | | | SERVICES, | | | | | | CORE | | + +---------+ + + + | CALCIUM(ALB | 8.7 | 8.6 - 10.2 | [facility] | | | CORRECTED) | | mg/dL | LABORATORY | | | | | | SERVICES, | | | | | | CORE | | + +---------+ + + + | ALBUMIN, | 3.2 (L) | 3.5 - 4.7 g/dL | [facility] | | | PLASMA | | | LABORATORY | | | (LAB) | | | SERVICES, | | | | | | CORE | | + +---------+ + + + | PHOSPHORUS, | 3.8 | 2.4 - 4.7 mg/dL | [facility] | | | PLASMA [...] + + + | ANION GAP | 6 | mmol/L | [facility] | | | | | | LABORATORY | | | | | | SERVICES, | | | | | | CORE | | + +---------+ + + + | ANION | 8 | 4 - 11 mmol/L | [facility] | | | GAP(ALB | | | LABORATORY | | | CORRECTED) | | | SERVICES, | | | | | | CORE | | + +---------+ + + + + + | Specimen | + + | Blood - Blood | | (substance) | + + + + + | Narrative | Performed At | + + + | GFR is estimated using the MDRD equation recommended by the | [facility] | | National Kidney Disease Education Program. Estimated GFR | LABORATORY | | Interpretive Information: <60 mL/min/1.73 sq m | SERVICES, CORE | | Chronic Kidney Disease <15 mL/min/1.73 sq m | | | Kidney Failure Estimated GFR greater that 60 mL/min/1.73 sq m is of | | | limited clinical value. The MDRD equation is not valid in the | | | following situations: - Patients under 18 years of age - Severe | | | malnutrition or obesity - Vegetarian diet - Rapidly changing kidney | | | function | | + + + + + + + + | Performing | Address | City/State/Zipcode | Phone Number | | Organization | | | | + + + + + | [facility] | [address] [facility] [facility] [address] | [place] [address] | | | SERVICES, CORE | [address] | | | + + + + + CARDIOLOGY (10/24/2015 12:00 AM PDT) + + + | Narrative | Performed At | + + + | | | + + + CAPILLARY BLOOD GLUCOSE (NO CHG), POC (10/23/2015 10:00 PM PDT) + +---------+ + + + | Component | Value | Ref Range | Performed | Pathologist | | | | | At | Signature | + +---------+ + + + | BLOOD | 152 (H) | 60 - 99 mg/dL | [...] + + + + + | [facility] | [address] [facility] [facility] [address] | [place], [place] | | | [facility] | [facility] | [address] | | | TESTS | | | | + + + + + PROCEDURE NOTE (10/23/2015 4:34 PM PDT)PROCEDURE NOTE (10/23/2015 3:01 PM PDT) + + + | Narrative | Performed At | + + + | Antoinette Adkins MD,PhD 10/23/2015 3:01 PM INPATIENT PHYSICIAN | | | OPERATION REPORT Procedure Date: 10/23/2015 Author: | | | Antoinette Adkins MD,PhD Attending Physician: Cecile TRINIDAD Assistants: | | | Adkins MD, Sweiss DO Prior to the beginning of the procedure, the | | | team paused to verify the patient | | | | | | s identity, the procedure to be performed (in accordance with the | | | consent,) and the correct side/site. The patient was positioned | | | appropriately. All relevant images and results were properly labeled | | | and displayed. We addressed antibiotic prophylaxis and fluids for | | | irrigation as applicable to this patient. Any safety precautions | | | were addressed. Preoperative Diagnosis: 1. Hx of aneurysmal SAH | | | s/p Right pterional craniotomy for clipping 2. Hx of delayed post | | | hemorrhagic hydrocephalus, s/p R VPS shunt 3. Aquired right cranial | | | defect Postoperative Diagnosis: same Procedure Performed: | | | Right synthetic cranioplasty Anesthesia: general Estimated | | | Blood Loss: 50 ml Fluids: per anesthesia Complications: none | | | Specimens: none Drains: none Findings: well finding | | | synthetic cranial flap. VPS was not manipulated Disposition: | | | PACU, cooper Antoinette Adkins MD,PhD [id number] | | + + + RENAL FUNCTION SET (NA,K,CL,CO2,BUN,CREAT,GLUC,CA,PHOS,ALB ) (10/23/2015 11:54 AM PDT) + +---------+ + + + | Component | Value | Ref Range | Performed | Pathologist | | | | | At | Signature | + +---------+ + + + | GLUCOSE, | 160 (H) | 60 - 99 mg/dL | [...] +---------+ + + + | CREATININE | 1.04 | 0.60 - 1.10 | [facility] | | | PLASMA | | mg/dL | LABORATORY | | | (LAB) | | | SERVICES, | | | | | | CORE | | + +---------+ + + + | EGFR | >60 | >60 mL/min | [facility] | | | - | | | LABORATORY | | | [place] | | | SERVICES, | | | | | | CORE | | + +---------+ + + + | EGFR NON | 53 (L) | >60 mL/min | [facility] | | | -[facility] | | | LABORATORY | | | [facility] | | | SERVICES, | | | | | | CORE | | + +---------+ + + + | SODIUM, | 142 | 136 - 145 | [facility] | | | PLASMA | | mmol/L | LABORATORY | | | (LAB) | | | SERVICES, | | | | | | CORE | | + +---------+ + + + | POTASSIUM, | 4.5 | 3.4 - 5.0 | [facility] | [...] + + + | TOTAL CO2, | 26 | 21 - 32 mmol/L | [facility] | | | PLASMA | | | LABORATORY | | | (LAB) | | | SERVICES, | | | | | | CORE | | + +---------+ + + + | CALCIUM, | 7.7 (L) | 8.6 - 10.2 | [facility] | | | PLASMA | | mg/dL | LABORATORY | | | (LAB) | | | SERVICES, | | | | | | CORE | | + +---------+ + + + | CALCIUM(ALB | 8.4 (L) | 8.6 - 10.2 | [facility] | | | CORRECTED) | | mg/dL | LABORATORY | | | | | | SERVICES, | | | | | | CORE | | + +---------+ + + + | ALBUMIN, | 3.1 (L) | 3.5 - 4.7 g/dL | [facility] | | | PLASMA | | | LABORATORY | | | (LAB) | | | SERVICES, | | | | | | CORE | | + +---------+ + + + | PHOSPHORUS, | 3.5 | 2.4 - 4.7 mg/dL | [facility] | | | PLASMA [...] + + + | ANION GAP | 5 | mmol/L | [facility] | | | | | | LABORATORY | | | | | | SERVICES, | | | | | | CORE | | + +---------+ + + + | ANION | 7 | 4 - 11 mmol/L | [facility] | | | GAP(ALB | | | LABORATORY | | | CORRECTED) | | | SERVICES, | | | | | | CORE | | + +---------+ + + + + + | Specimen | + + | Blood - Blood | | (substance) | + + + + + | Narrative | Performed At | + + + | GFR is estimated using the MDRD equation recommended by the | [facility] | | National Kidney Disease Education Program. Estimated GFR | LABORATORY | | Interpretive Information: <60 mL/min/1.73 sq m | SERVICES, CORE | | Chronic Kidney Disease <15 mL/min/1.73 sq m | | | Kidney Failure Estimated GFR greater that 60 mL/min/1.73 sq m is of | | | limited clinical value. The MDRD equation is not valid in the | | | following situations: - Patients under 18 years of age - Severe | | | malnutrition or obesity - Vegetarian diet - Rapidly changing kidney | | | function | | + + + + + + + + | Performing | Address | City/State/Zipcode | Phone Number | | Organization | | | | + + + + + | [facility] | [address] | [place] [address] | | | SERVICES, CORE | [address] | | | + + + + + CT HEAD WO CONTRAST (10/23/2015 11:38 AM PDT) + + + + + + | Component | Value | Ref Range | Performed | Pathologist | | | | | At | Signature | + + + + + + | CT HEAD WO | EXAM: CT head without | | | | | CONTRAST | contrast HISTORY: Post | | | | | | cranioplasty COMPARISON: | | | | | | 10/03/15 TECHNIQUE: CT | | | | | | of the head without | | | | | | contrast. FINDINGS: | | | | | | Brain: There has been | | | | | | interval resection of | | | | | | the right frontotemporal | | | | | | bone flapand | | | | | | replacement with | | | | | | prosthetic cranioplasty. | | | | | | There is expected | | | | | | intracranialgas. Fluid | | | | | | within the craniectomy | | | | | | site is new but | | | | | | expected, with small | | | | | | amountsof trace | | | | | | hyperdensity compatible | | | | | | with acute blood | | | | | | products. Sequela of | | | | | | rightparaclinoid region | | | | | | aneurysm clipping is | | | | | | again noted. Stable | | | | | | hypodensities inboth | | | | | | frontal lobes and right | | | | | | basal ganglia region | | | | | | likely | | | | | | representingencephalomal | | | | | | acia are again noted. | | | | | | Otherwise, there is no | | | | | | new or acuteintracranial | | | | | | hemorrhage. The right | | | | | | frontal EVD is in | | | | | | stable position, | | | | | | withstable ventricular | | | | | | size and asymmetry, left | | | | | | frontal horn larger | | | | | | than the right. Soft | | | | | | tissues: | | | | | | UnremarkableSkull and | | | | | | skull base: Status post | | | | | | cranioplasty, as above. | | | | | | Mastoids and middleears | | | | | | are | | | | | | unremarkable.Face/orbits | | | | | | : Visualized portions | | | | | | are | | | | | | unremarkable.Paranasal | | | | | | sinuses: Visualized | | | | | | portions are | | | | | | unremarkable. | | | | | | IMPRESSION: 1. Sequela | | | | | | of interval right | | | | | | cranioplasty with | | | | | | expected postsurgical | | | | | | gas andfluid as | | | | | | described.2. Stable | | | | | | areas of | | | | | | encephalomalacia without | | | | | | acute interval new | | | | | | process.3. 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 Attending | | | | | | Radiologists: BOBBI | | | | | | ANA LOCKWOODuthor: | | | | | | BOBBI LOCKWOOD MD I | | | | | | personally reviewed the | | | | | | images and, if | | | | | | necessary, edited the | | | | | | report. I agreewith the | | | | | | report as now presented. | | | | | | | | | | | | Final/Electronically | | | | | | signed / BOBBI | | | | | | MANDIE 10/23/2015 | | | | | | 12:00 PM | | | | + + + + + + + + | Specimen | + + | | + + + +---------+ + + | Performing | Address | City/State/Zipcode | Phone Number | | Organization | | | | + +---------+ + + | [facility] | | | | | RADIOLOGY | | | | + +---------+ + + CBC (HEMOGRAM) ONLY (10/23/2015 10:34 AM PDT) + + + + + + | Component | Value | Ref Range | Performed | Pathologist | | | | | At | Signature | + + + + + + | WHITE CELL | 12.47 (H) | 4.40 - 11.00 | [facility] | | | COUNT | | K/cu mm | LABORATORY | | | | | | SERVICES, | | | | | | CORE | | + + + + + + | RED CELL | 4.21 | 4.00 - 5.20 | [facility] | | | COUNT | | M/cu mm | LABORATORY | | | | | | SERVICES, | | | | | | CORE | | + + + + + + | HEMOGLOBIN | 13.2 | 12.0 - 16.0 | [facility] | | | | | g/dL | LABORATORY | | | | | | SERVICES, | | | | | | CORE | | + + + + + + | HEMATOCRIT | 39.8 | 36.0 - 46.0 % | [facility] | | | | | | LABORATORY | | | | | | SERVICES, | | | | | | CORE | | + + + + + + | MCV | 94.5 | 80.0 - 96.0 fL | [facility] | | | | | | LABORATORY | | | | | | SERVICES, | | | | | | CORE | | + + + + + + | MCHC | 33.2 | 33.0 - 35.5 | [facility] | | | | | g/dL | LABORATORY | | | | | | SERVICES, | | | | | | CORE | | + + + + + + | RDW SD | 48.2 (H) | 35.1 - 46.3 fL | [facility] | | | | | | LABORATORY | | | | | | SERVICES, | | | | | | CORE | | + + + + + + | PLATELET | 194 | 150 - 400 K/cu | [facility] | | | COUNT | | mm | LABORATORY | | | | | | SERVICES, | | | | | | CORE | | + + + + + + | MPV | 11.5 | 9.7 - 12.3 fL | [facility] [...] + + + + + | [facility] | [address] | [place] [address] | | | SERVICES, CORE | [address] | | | + + + + + INR (10/23/2015 10:34 AM PDT) + +-------+ + + + | Component | Value | Ref Range | Performed | Pathologist | | | | | At | Signature | + +-------+ + + + | INR | 1.05 | 0.90 - 1.20 INR | [facility] [...] Therapeutic ranges for full anticoagulation: INR for | [facility] | | Venous Thromboembolism (2.0 - 3.0) INR INR for | LABORATORY | | most patients with mech. valves (2.5 - 3.5) INR | JOHNSON, RYAN | + + + + + + + + | Performing | Address | City/State/Zipcode | Phone Number | | Organization | | | | + + + + + | [facility] | [address] | [place] [address] | | | SERVICES, R[place]AN | [address] | | | + + + + + RENAL FUNCTION SET (NA,K,CL,CO2,BUN,CREAT,GLUC,CA,PHOS,ALB ) (10/23/2015 10:34 AM PDT) + + + + + + | Component | Value | Ref Range | Performed | Pathologist | | | | | At | Signature | + + + + + + | GLUCOSE, | 159 (H) | 60 - 99 mg/dL | [facility] | | | PLASMA | | | LABORATORY | | | (LAB) | | | SERVICES, | | | | | | CORE | | + + + + + + | BUN, PLASMA | 9 | 6 - 20 mg/dL | [facility] | | | (LAB) | | | LABORATORY | | | | | | SERVICES, | | | | | | CORE | | + + + + + + | CREATININE | 0.82 | 0.60 - 1.10 | [facility] | | | PLASMA | | mg/dL | LABORATORY | | | (LAB) | | | SERVICES, | | | | | | CORE | | + + + + + + | EGFR | >60 | >60 mL/min | [facility] | | | - | | | LABORATORY | | | [place] | | | SERVICES, | | | | | | CORE | | + + + + + + | EGFR NON | >60 | >60 mL/min | [facility] | | | -[facility] | | | LABORATORY | | | [facility] | | | SERVICES, | | | | | | CORE | | + + + + + + | SODIUM, | 140 | 136 - 145 | [facility] | | | PLASMA | | mmol/L | LABORATORY | | | (LAB) | | | SERVICES, | | | | | | CORE | | + + + + + + | POTASSIUM, | 6.2 (HH) | 3.4 - 5.0 | [facility] | | | PLASMA | | mmol/L | LABORATORY | | | (LAB) | | | SERVICES, | | | | | | CORE | | + + + + + + | CHLORIDE, | 113 (H) | 97 - 108 mmol/L | [facility] | | | PLASMA | | | LABORATORY | | | (LAB) | | | SERVICES, | | | | | | CORE | | + + + + + + | TOTAL CO2, | 22 | 21 - 32 mmol/L | [facility] | | | PLASMA | | | LABORATORY | | | (LAB) | | | SERVICES, | | | | | | CORE | | + + + + + + | CALCIUM, | 7.7 (L) | 8.6 - 10.2 | [facility] | | | PLASMA | | mg/dL | LABORATORY | | | (LAB) | | | SERVICES, | | | | | | CORE | | + + + + + + | CALCIUM(ALB | 8.5 (L) | 8.6 - 10.2 | [facility] | | | CORRECTED) | | mg/dL | LABORATORY | | | | | | SERVICES, | | | | | | CORE | | + + + + + + | ALBUMIN, | 3.0 (L) | 3.5 - 4.7 g/dL | [facility] | | | PLASMA | | | LABORATORY | | | (LAB) | | | SERVICES, | | | | | | CORE | | + + + + + + | PHOSPHORUS, | 4.4 | 2.4 - 4.7 mg/dL | [facility] | | | PLASMA | | | LABORATORY | | | (LAB) | | | SERVICES, | | | | | | CORE | | + + + + + + | POTASSIUM | Mod Hemo | | [facility] | | | CMNT | | | LABORATORY | | | | | | SERVICES, | | | | | | CORE | | + + + + + + | ANION GAP | 5 | mmol/L | [facility] | | | | | | LABORATORY | | | | | | SERVICES, | | | | | | CORE | | + + + + + + | ANION | 7 | 4 - 11 mmol/L | [facility] | | | GAP(ALB | | | LABORATORY | | | CORRECTED) | | | SERVICES, | | | | | | CORE | | + + + + + + + + | Specimen | + + | Blood - Blood | | (substance) | + + + + + | Narrative | Performed At | + + + | Sample hemolyzed. Results for K, Total Bili, Direct Bili, AST, | [facility] | | LDH, or HDL may be inaccurate. Refer to comment under test result. | LABORATORY | | GFR is estimated using the MDRD equation recommended by the National | SERVICES, CORE | | Kidney Disease Education Program. Estimated GFR Interpretive | | | Information: <60 mL/min/1.73 sq m Chronic Kidney | | | Disease <15 mL/min/1.73 sq m Kidney Failure | | | Estimated GFR greater that 60 mL/min/1.73 sq m is of limited clinical | | | value. The MDRD equation is not valid in the following situations: | | | - Patients under 18 years of age - Severe malnutrition or obesity | | | - Vegetarian diet - Rapidly changing kidney function | | + + + + + + + + | Performing | Address | City/State/Zipcode | Phone Number | | Organization | | | | + + + + + | [facility] | [address] | [place] [address] | | | SERVICES, CORE | [address] | | | + + + + + CAPILLARY BLOOD GLUCOSE (NO CHG), POC (10/23/2015 7:24 AM PDT) + +-------+ + + + | Component | Value | Ref Range | Performed | Pathologist | | | | | At | Signature | + +-------+ + + + | BLOOD | 83 | 60 - 99 mg/dL | [facility] [...] | [facility] | [address] | [place], [place] | | | [facility] | [address] | [address] | | | TESTS | | | | + + + + + CBC (HEMOGRAM) ONLY (10/23/2015 6:53 AM PDT) + + + + + + | Component | Value | Ref Range | Performed | Pathologist | | | | | At | Signature | + + + + + + | WHITE CELL | 7.78 | 4.40 - 11.00 | [facility] | | | COUNT | | K/cu mm | LABORATORY | | | | | | SERVICES, | | | | | | CORE | | + + + + + + | RED CELL | 4.54 | 4.00 - 5.20 | [facility] | | | COUNT | | M/cu mm | LABORATORY | | | | | | SERVICES, | | | | | | CORE | | + + + + + + | HEMOGLOBIN | 14.3 | 12.0 - 16.0 | [facility] | | | | | g/dL | LABORATORY | | | | | | SERVICES, | | | | | | CORE | | + + + + + + | HEMATOCRIT | 42.4 | 36.0 - 46.0 % | [facility] | | | | | | LABORATORY | | | | | | SERVICES, | | | | | | CORE | | + + + + + + | MCV | 93.4 | 80.0 - 96.0 fL | [facility] | | | | | | LABORATORY | | | | | | SERVICES, | | | | | | CORE | | + + + + + + | MCHC | 33.7 | 33.0 - 35.5 | [facility] | | | | | g/dL | LABORATORY | | | | | | SERVICES, | | | | | | CORE | | + + + + + + | RDW SD | 46.9 (H) | 35.1 - 46.3 fL | [facility] | | | | | | LABORATORY | | | | | | SERVICES, | | | | | | CORE | | + + + + + + | PLATELET | 234 | 150 - 400 K/cu | [facility] | | | COUNT | | mm | LABORATORY | | | | | | SERVICES, | | | | | | CORE | | + + + + + + | MPV | 11.0 | 9.7 - 12.3 fL | [facility] [...] | + + + + + | [facility] | [address] | [place] [address] | | | SERVICES, CORE | [address] | | | + + + + + APTT (ACT. PART. THROMBO TIME) (10/23/2015 6:53 AM PDT) + +-------+ + + + | [...] At | + + + | APTT Therapeutic Range: (75 - | [facility] | | 120) sec Heparin levels of 0.35 - 0.7 U/mL | LABORATORY | | | SERVICES, CORE | + + + + + + + + | Performing | Address | City/State/Zipcode | Phone Number | | Organization | | | | + + + + + | [facility] | [address] | [place] [address] | | | SERVICES, CORE | [address] | | | + + + + + INR (10/23/2015 6:53 AM PDT) + +-------+ + + + | Component | Value | Ref Range | Performed | Pathologist | | | | | At | Signature | + +-------+ + + + | INR | 1.03 | 0.90 - 1.20 INR | [facility] [...] Therapeutic ranges for full anticoagulation: INR for | [facility] | | Venous Thromboembolism (2.0 - 3.0) INR INR for | LABORATORY | | most patients with mech. valves (2.5 - 3.5) INR | SERVICES, CORE | + + + + + + + + | Performing | Address | City/State/Zipcode | Phone Number | | Organization | | | | + + + + + | [facility] | [address] | [place] [address] | | | SERVICES, CORE | [address] | | | + + + + + BASIC METABOLIC SET (NA, K, CL, TCO2, BUN, CR, GLU, CA) (10/23/2015 6:53 AM PDT) + +---------+ + + + | Component | Value | Ref Range | Performed | Pathologist | | | | | At | Signature | + +---------+ + + + | GLUCOSE, | 89 | 60 - 99 mg/dL | [facility] | | | PLASMA | | | LABORATORY | | | (LAB) | | | SERVICES, | | | | | | CORE | | + +---------+ + + + | BUN, PLASMA | 9 | 6 - 20 mg/dL | [facility] | | | (LAB) | | | LABORATORY | | | | | | SERVICES, | | | | | | CORE | | + +---------+ + + + | CREATININE | 0.67 | 0.60 - 1.10 | [facility] | | | PLASMA | | mg/dL | LABORATORY | | | (LAB) | | | SERVICES, | | | | | | CORE | | + +---------+ + + + | EGFR | >60 | >60 mL/min | [facility] | | | - | | | LABORATORY | | | [place] | | | SERVICES, | | | | | | CORE | | + +---------+ + + + | EGFR NON | >60 | >60 mL/min | [facility] | | | -[facility] | | | LABORATORY | | | [facility] | | | SERVICES, | | | | | | CORE | | + +---------+ + + + | SODIUM, | 141 | 136 - 145 | [facility] | [...] + + + | TOTAL CO2, | 23 | 21 - 32 mmol/L | [facility] | | | PLASMA | | | LABORATORY | | | (LAB) | | | SERVICES, | | | | | | CORE | | + +---------+ + + + | CALCIUM, | 8.4 (L) | 8.6 - 10.2 | [facility] | | | PLASMA | | mg/dL | LABORATORY | | | (LAB) | | | SERVICES, | | | | | | CORE | | + +---------+ + + + | ANION GAP | 7 | mmol/L | [facility] | | | | [...] using the MDRD equation recommended by the | [facility] | | National Kidney Disease Education Program. Estimated GFR | LABORATORY | | Interpretive Information: <60 mL/min/1.73 sq m | SERVICES, CORE | | Chronic Kidney Disease <15 mL/min/1.73 sq m | | | Kidney Failure Estimated GFR greater that 60 mL/min/1.73 sq m is of | | | limited clinical value. The MDRD equation is not valid in the | | | following situations: - Patients under 18 years of age - Severe | | | malnutrition or obesity - Vegetarian diet - Rapidly changing kidney | | | function | | + + + + + + + + | Performing | Address | City/State/Zipcode | Phone Number | | Organization | | | | + + + + + | [facility] | [address] | [place] [address] | | | JOHNSON, RYAN | [address] | | | + + + + + CARDIOLOGY (10/23/2015 12:00 AM PDT) + + + | Narrative | Performed At | + + + | | | + + + documented in this encounter Visit Diagnoses Not on filedocumented in this encounter Administered Medications + +--------+ +---------+------+------+ | Medication Order | MAR | Action | Dose | Rate | Site | | | Action | Date | | | | + +--------+ +---------+------+------+ | bacitracin (BACIIM) injection | Given | 10/23/19 | 50,000 | | | | INTRAPROCEDURE PRN, Starting Clarisa | | 16 9:22 | Units | | | | 10/23/15 at 0922, Until Clarisa 10/23/15 | | AM PDT | | | | | at 1016 | | | | | | + +--------+ +---------+------+------+ +---+---+ | | | +---+---+ + +-------+ +---------+---+---+ | bacitracin ointment | Given | 10/23/19 | 1 strip | | | | INTRAPROCEDURE PRN, Starting Clarisa | | 16 9:21 | | | | | 10/23/15 at 0921, Until Clarisa 10/23/15 | | AM PDT | | | | | at 1016 | | | | | | + +-------+ +---------+---+---+ +---+---+ | | | +---+---+ + +-------+ +--------+---+------+ | thrombin 5000 unit topical | Given | 10/23/19 | 5,000 | | Head | | solution INTRAPROCEDURE PRN, | | 16 9:21 | Units | | | | Starting Clarisa 10/23/15 at 0920, | | AM PDT | | | | | Until Clarisa 10/23/15 at 1016 | | | | | | + +-------+ +--------+---+------+ +-------+ +--------+---+------+ | Given | 10/23/19 | 5,000 | | Head | | | 16 9:20 | Units | | | | | AM PDT | | | | +-------+ +--------+---+------+ +---+---+ | | | +---+---+ documented in this encounter
--- OUTSIDE RECORDS SUMMARY | ~2019-10-22 | XMS | Encounter Summary ---
Demographics + + + | Address | [address] | | | [place] [address] | + + + | Home Phone | | + + + | Preferred Language | Unknown | + + + | Marital Status | | + + + | Yarsani Affiliation | MET | + + + | Race | White | + + + | Ethnic Group | Not or | + + + Author + + + | Author | [facility] | + + + | Organization | [facility] | + + + | Address | Unknown | + + + | Phone | Unavailable | + + + Support + + +---------+ + | Name | Relationship | Address | Phone | + + +---------+ + | Augusto Adhikari | ECON | Unknown | | + + +---------+ + | Thaddeus Gerard | ECON | Unknown | | + + +---------+ + | Eric Leung | ECON | Unknown | | + + +---------+ + Care Team Providers + +------+ + | Care Senior Net Developer Architect Name | Role | Phone | + [...] Description | +--------+---------+ + + + | 08/03/ | Surgery | 6A Intra Op [id number] | Magnolia Diego MD | RIGHT SIDED MESH | | 2019 | | [facility] | [address] | CRANIOPLASTY; | | | | [address] [facility] | [facility] [place] | | | | | Hospital Admitting | [address] | | | | | Desk Located on the | [phone] | | | | | 9th floor | | | | | | [facility] [place] | | | | | | [address] | | | +--------+---------+ + + + [...] + + + | Blood Pressure | 114/69 | 08/03/2018 9:00 PM | | | | | PDT | | + + + + + | Pulse | 103 | 08/03/2018 9:00 PM | | | | | PDT | | + + + + + | Temperature | 36.2 C (97.2 F) | 08/03/2018 8:02 PM | | | | | PDT | | + + + + + | Respiratory Rate | 10 | 08/03/2018 9:00 PM | | | | | PDT | | + + + + + | Oxygen Saturation | 92% | 08/03/2018 9:00 PM | | | | | PDT | | + + + + + | Inhaled Oxygen | - | - | | | Concentration | | | | + + + + + | Weight | 48 kg (105 lb 13.1 | 08/03/2018 9:56 AM | | | | oz) | PDT | | + + + + + | Height | 149.9 cm (4' 11") | 08/03/2018 9:56 AM | | | | | PDT | | + + + + + | Body Mass Index | 22.49 | 08/03/2018 9:56 AM | | | | | PDT [...] documented as of this encounter Discharge Summaries Valente Presley MD,DDS - 08/11/2018 8:29 AM PDTFormatting of this note might be differe nt from the original. DOS: 08/11/2018 8:29 AM INPATIENT PHYSICIAN DISCHARGE SUMMARY Author: Valente Presley MD,DDS Attending Physician: Ata White MD PCP: Mary Vazquez PA-C Admission Date: 08/03/2018 Discharge Date: 11 Aug 2018 Diagnoses Principal Final Diagnosis: 1. Cranial wound dehiscence Additional Diagnoses: Procedures 1. Right mesh cranioplasty >5cm. 2. Wound debridement. 3. Latissimus dorsi tissue graft Brief Hospital Course 68 y.o. Gloria Adhikari was taken to the operating room on 08/03/2018 for the proce dures listed above. Post-operatively she was transferred to the NSICU where q1h flap checks were conducted for 48 hours. On POD #3 patient was transferred to the rosas for continued ac [place] care and q4h flap checks. By POD 8 she was tolerating adequate PO nutrition and hydration and had adequate pain contr ol on PO medications. Patient and caregivers were given wound care instructions by nursing staff. She was seen by the PT/OT who assessed for safe ambulation and reviewed out patient rehab plan. She was assessed by the fellow surgeon, Dr. Pratt, and deemed safe for discharg e. The patient and her caregivers agree with this course of action. She was subsequently di scharged in good condition with return precautions and follow-up Medications: Medication List CHANGE how you take these medications * acetaminophen 325 mg Tab Commonly known as: TYLENOL Take 1-2 tablets by mouth every four hours as needed. Indications: Pain What changed: Another medication with the same name was added. Make sure you understand ho w and when to take each. * acetaminophen 500 mg Tab Commonly known as: TYLENOL EXTRA STRENGTH Take 1 tablet by mouth every six hours as needed. What changed: You were already taking a medication with the same name, and this prescripti on was added. Make sure you understand how and when to take each. * This list has 2 medication(s) that are the same as other medications prescribed for you. Read the directions carefully, and ask your doctor or other care provider to review them wi th you. CONTINUE taking these medications atorvastatin 80 mg Tab Commonly known as: LIPITOR Take 80 mg by mouth once daily. ipratropium-albuterol 0.5 mg-3 mg(2.5 mg base)/3 mL Nebu Commonly known as: DUO-NEB Inhale 3 mL two times daily. metoprolol succinate 50 mg Tb24 Commonly known as: TOPROL-XL Take 50 mg by mouth once daily. nicotine 21 mg/24 hr Pt24 Commonly known as: NICOTROL Apply 1 patch to skin once daily. polyethylene glycol 17 gram Pwpk Commonly known as: MIRALAX Mix 1 packet and take orally three times daily as needed (1st line - for no BM for 2 days). Indications: constipation spironolactone 25 mg Tab Commonly known as: ALDACTONE Take 25 mg by mouth once daily. Diet Regular Regular diet- There are no restrictions to your diet. You may eat or drink whatever you pr efer, though healthy food choices are recommended. Activity No activity restrictions Wound Care Xeroform to skin grafts and exposed muscle. OK to wash scabs with diluted hydrogen peroxide . No tight fitting garments around head or flap. HOME HEALTH REFERRAL AFTER HOSPITALIZATION Comments: I certify that this patient is under my care and that I, or Nurse Practitioner or Physician Utility Hand working with me, had a face to face encounter with this patient on 08/08/2018 On behalf of Attending Physician: Ata White MD I am ordering and certify that the following services are medically necessary home health s [facility] Custodial Evaluate and Treat Wound care I certify that the patient is homebound based on the following clinical findings Post-hospi moody weakness, decreased strength and endurance, and tires easily with minimal exertion Other Discharge Orders and Instructions OTOLARYNGOLOGY- HEAD AND NECK SURGERY SURGICAL DISCHARGE INSTRUCTIONS Please call our clinic with any concerns or questions about your hospital stay. After hour s, you may call ACTIVITY: Walking will be your primary source of exercise. It is very important that you walk at leas t three times a day. These can be short walks that you can gradually increase over time as y our strength improves. The majority of time should be spent out of bed. It is ok to take nap s if you are tired, but alternate napping with activity. WEIGHT BEARING RESTRICTIONS: No heavy lifting, nothing greater than 10lbs. For 2 weeks (a gallon of milk is approximatel y 8lbs.) PAIN: It is expected that you will have pain after surgery, and it is important to manage this pa in so that you can increase your activity, sleep, and heal well from surgery. You are being sent home with a prescription for narcotic pain medication - this is to be taken NEEDED t ypically every 4-6 hours. You may also substitute/supplement the narcotic medication with Ty lenol for milder pain. DO NOT TO TAKE MORE THAN 3,250MG OF TYLENOL IN 24HOURS. Please take n ote if the narcotic you have been prescribed contains Tylenol (acetaminophen). MEDICATIONS: Take pain medication as needed. Your pain should decrease over the next week. Wean yoursel f off pain medications as soon as possible. The regular use of narcotics (pain medications) can be habit forming, and they do impair judgement. Do not drive within 8 hours of taking any narcotic. Pain medications are constipating. You should have regular bowel movements, while on pain medications. Staying well hydrated and increasing fiber in your diet are good strategies. If you are still unable to have a bowel movement, over the counter stool softeners and laxat clara are appropriate to use. Miralax, Docusate, and Sennosides are a few examples. Your ph armacist can help pick a stool softener should you need further assistance. Medication Refill Instructions: For non-narcotic medication refills, please contact your pharmacy. If you think you will need a refill for the weekend, you must call by 3pm on to al low time for processing. WOUND CARE: Keep the wound clean and dry. Some thin, blood tinged drainage from the wound is normal. Keep the wound covered with gauze until the drainage stops. Change the dressing daily. You may shower with soap and water. Pat your incision dry. Do not scrub your incision. Do not use hot tubs or take a bath until cleared by a surgeon. If steri-strips have been plac ed over your incision, treat these like normal skin. You may get them wet, and they will fa ll off in about 1 week. DRAINS: The drain will stay in place until your next office visit. The drain will help clear exces sive fluid caused by local inflammation. Some mild leakage around the tube is normal. Keep a clean gauze pad around the tube and secure it with tape. If there is a significant amoun t of leakage around the tube, please call the office for advice. DRAIN CARE 1. Empty drains and record output for each drain separately. 2. Collapse the bulb(s) so that it will continue to cause suction to the area to remove fl uid. 3. Support the drains using tape to skin or abdominal binder. 4. Do not have them dangling as this will cause tension to the insertion site. 5. Bring output record to your clinic visit. 6. Please notify us for any changes in color of drainage such as blood, thick eisenberg drainage or sudden increase in output. Call for new or increasing redness, or pain to insertion site; any additional questions or concerns. SYMPTOMS OF A SURGICAL SITE INFECTION: 1) Spreading redness and swelling from the incision. 2) Worsening or uncontrolled pain at the incision 3) Foul smelling or thick/creamy discharge from the incision 4) Chills or fever of a 101.4 degrees or higher FOLLOW-UP: Please call and arrange an appointment. Come back to see Dr. Ata White MD next week. Future Appointments 08/17/2018 11:00 AM MD NITESH Hansen [facility] Otolaryngobecka 10/02/2018 12:00 PM MD NITESH Hansen [facility] Otolaryngobecka HOW TO REACH US: Tuesday- Tuesday from 8:00am to 4:30pm, call the Otolaryngology clinic at [phone]. After hours, weekends, and holidays, call the [facility] spray painting machine operator at [phone] and as k to have the ENT doctor on-call paged Future Appointments Date Time Provider Department Center 08/17/2018 11:00 AM MD NITESH Hansen [facility] Otolaryngobecka 10/02/2018 12:00 PM MD NITESH Hansen [facility] Otolaryngolo Consults obtained: Pertinent imaging: Pertinent labs: CBC with diff last 72 hours (or 3 results) Recent Labs 08/09/18 0543 08/10/18 0528 WBC 9.54 10.01 HB 9.2* 9.4* HCT 28.3* 29.0* PLT 196 223 Chemistries: Last 72 Hours (or 3 results): Recent Labs 08/09/18 0543 08/09/18 1027 08/10/18 0528 NA 137 -- 138 K 4.4 -- 4.5 CL 106 -- 105 BICARB 25 -- 26 BUN 9 -- 13 CR 0.71 -- 0.72 GLU 107* 112* 98 CA 8.1* -- 8.1* PO4 4.1 -- 4.4 Liver Tests: Last 72 hours (or 3 results) Recent Labs 08/09/18 0543 08/10/18 0528 ALB 2.3* 2.4* Vitals on discharge: Ht 1.499 m (4' 11"), Wt 50.5 kg (111 lb 5.3 oz), BP 112/68, Pulse 88, Temperature 36.7 C (98.1 F), Temperature source Oral, RR 20, SpO2 98%, BMI 22.49 kg/(m^2 ). Facility age limit for growth percentiles is 18 years. Physical Exam on discharge: General: Alert, comfortable, NAD, communicative Flap (scalp): warm, soft, Xeroform in place. Edema continues to improve. Muscle exposed wit h fibrinous material overlying. Slightly ecchymotic skin graft over scalp. Warm and soft. Right back Donor site: Dressing intact. Lazara serosang. Outstanding labs/studies: Surgical Pathology Discharging Physician: Valente Presley MD,DDS Attending Physician: Ata White MD documented in this encounte r Medications at Time of Discharge + + [...] documented as of this encounter Progress Notes Mel Blanca MD - 08/11/2018 8:24 AM PDTFormatting of this note might be dif ferent from the original. INPATIENT PROGRESS NOTE Hospital Day:8 Attending Physician: Ata White MD Interval Hx: - NAEO. - No complaints this AM - Excited for DC. Physical Exam: Last Vitals: BP 112/68 (BP Location: Left upper arm, Patient Position: Sitting) | Pulse 88 | Temp 36.7 C (98.1 F) (Oral) | Resp 20 | Ht 1.499 m (4' 11") | Wt 50.5 kg (111 lb 5.3 oz) | SpO2 98% | BMI 22.49 kg/m | BSA 1.45 m O2 Delivery Device: None (room air) (08/11/18 0803) 24 Hour Vital Min/Max: Systolic (24hrs), Av , Min:106 , Max:123 Diastolic (24hrs), Av, Min:51, Max:68Puls e Min: 80 Max: 99 Temp Min: 36.3 C (97.3 F) Max: 36.9 C (98.4 F) Resp Min: 16 Max: 20 SpO2 Min: 91 % Max: 96 % Intake/Output Summary (Last 24 hours) at 08/08/2018 0714 Last data filed at 08/08/2018 0500 Gross per 24 hour Intake 660 ml Output 260 ml Net 400 ml Physical Exam: General: Awake, alert and oriented to person, place and time HEENT: gaze conjugate, EOM's intact, slight decrease in right brow raise but facial moveme nt otherwise symmetric Bulky latissimus dorsi free flap on right frontotemporal area, soft and warm, overlying ski n graft with some ecchymotic areas medially. Muscle exposed laterally. Incisions appear c/d/i with minimal SS drainage Language: fluent and articulate without evidence of aphasia or dysarthria Motor: 5/5 strength BUE/BLE, SILT throughout Labs: CBC with diff last 72 hours (or 3 results) - Refreshable Recent Labs 08/09/18 0543 08/10/18 0528 WBC 9.54 10.01 HB 9.2* 9.4* HCT 28.3* 29.0* PLT 196 223 Current Medications: acetaminophen (TYLENOL) tablet 325-650 mg, 325-650 mg, oral, Q6H PRN OR acetaminophen ( TYLENOL) tablet 325-650 mg, 325-650 mg, feeding tube, Q6H PRN OR acetaminophen (TYLENOL) suppository 325-650 mg, 325-650 mg, rectal, Q6H PRN artificial tears (dextran 70-hypromellose) (NATURE'S TEARS) 0.1-0.3 % ophthalmic drops 1 dr op, 1 drop, Both Eyes, PRN ascorbic acid (vitamin C) tablet 500 mg, 500 mg, oral, BID OR ascorbic acid (vitamin C) tablet 500 mg, 500 mg, feeding tube, BID atorvastatin (LIPITOR) tablet 80 mg, 80 mg, oral, DAILY bisacodyl (DULCOLAX) suppository 10 mg, 10 mg, rectal, DAILY PRN dextrose 50 % in water IV 25 mL, 25 mL, intravenous, PRN enoxaparin (LOVENOX) injection 40 mg, 40 mg, subcutaneous, QPM glucagon (GLUCAGEN) injection 1 mg, 1 mg, intramuscular, PRN glucose chewable tablet 16 g, 16 g, oral, PRN hydrALAZINE (APRESOLINE) injection 10-20 mg, 10-20 mg, intravenous, Q10MIN PRN labetalol (TRANDATE) IV injection 10-20 mg, 10-20 mg, intravenous, Q10MIN PRN metoclopramide HCl (REGLAN) injection 5-10 mg, 5-10 mg, intravenous, Q4H PRN metoprolol succinate (TOPROL-XL) tablet 50 mg, 50 mg, oral, DAILY nicotine (NICOTROL) 7 mg/24 hr 1 patch, 1 patch, transdermal, DAILY [COMPLETED] ondansetron (ZOFRAN) injection 4 mg, 4 mg, intravenous, Q12H FOLLOWED BY on dansetron (ZOFRAN) injection 4 mg, 4 mg, intravenous, Q12H PRN polyethylene glycol (MIRALAX) packet 17 g, 17 g, oral, DAILY polyethylene glycol (MIRALAX) packet 34 g, 34 g, oral, TID PRN senna-docusate (SENOKOT S) 8.6-50 mg 2 tablet, 2 tablet, oral, BID spironolactone (ALDACTONE) tablet 25 mg, 25 mg, oral, DAILY zinc sulfate (ORAZINC) tablet 25 mg elemental, 110 mg total salt, oral, DAILY OR zinc s ulfate (ORAZINC) tablet 25 mg elemental, 110 mg total salt, feeding tube, DAILY ASSESSMENT: Gloria Adhikari is a 68 y.o. year old female with complicated history following castillo rgical management of ruptured anterior communicating artery aneurysm and hydrocephalus which occurred in 2007, who has required multiple surgical procedures for wound infection, explan t and re-implantation of cranioplasty, and eventual plastic surgery consultation. Most rec ently, she underwent synthes cranioplasty (05/08/18) with rotational flap performed by Dr Susu White. She re-presented with wound dehiscence managed with over sewing of the wound by ENT ( 05/14-05/17). She re-presented with recurrent cranioplasty exposure on 07/10, for which she w as admitted and underwent explant of her cranioplasty and wound closure by ENT the following day. Intraoperative culture was notable for growth of staph epidermidis, for which ID recom mended no treatment at that time. She was seen in clinic on 07/28 with recurrent dehiscence fo llowing removal of sutures. She thus returned for elective titanium mesh cranioplasty with E NT latissimus dorsi free flap coverage on 08/03, from which she is recovering well. PLAN: Wound care per primary team. No need for NSG follow up if following up with Dr White. Continue to encourage smoking cessation. Mel Shelton MD Resident Physician, PGY1 Service Pager: [phone] Valente Valdovinos MD,DD S - 08/10/2018 8:37 AM PDT Head and Neck Surgery Inpatient Daily Progress Note: Primary Care Provider: Mary Vazquez PA-C Admission Date: 08/03/2018 GLORIA ADHIKARI, [id number] Hospital Day #7 PROCEDURES: Dr. Diego 08/03/18 - Right mesh cranioplasty Dr. White (ENT) 08/03/18 - Free autologous flap from right latissimus dorsi to right scalp defect SUBJECTIVE INTERVAL EVENTS: SHANNON, AF, HDS Minimal complaints and is exited to go home tomorrow OBJECTIVE Last 24 hour min/max Temp: 37.1 C (98.8 F) Temp Min: 36.6 C (97.9 F) Max: 37.3 C (99.1 F) Pulse: 87 Pulse Min: 86 Max: 96 Resp: 16 Resp Min: 16 Max: 18 BP: 106/53 BP Min: 103/40 Max: 118/54 SpO2: 94 % SpO2 Min: 90 % Max: 100 % Body mass index is 22.49 kg/m. Intake/Output Summary (Last 24 hours) at 08/10/2018 0841 Last data filed at 08/10/2018 0509 Gross per 24 hour Intake 260 ml Output 88 ml Net 172 ml PHYSICAL EXAM: General: Alert, comfortable, NAD, communicative Flap (scalp): warm, soft, Xeroform in place. Edema improved. Muscle exposed with fibrinous material overlying. Slightly ecchymotic skin graft over scalp. Right back Donor site: Dressing intact. Lazara serosang. LABS: Recent Labs 08/08/18 0640 08/09/18 0543 08/09/18 1027 08/10/18 0528 NA 139 -- 137 -- 138 K 4.1 -- 4.4 -- 4.5 CL 109* -- 106 -- 105 BICARB 26 -- 25 -- 26 BUN 6 -- 9 -- 13 CR 0.68 -- 0.71 -- 0.72 GLU 102* < > 107* 112* 98 CA 8.0* -- 8.1* -- 8.1* ALB 2.4* -- 2.3* -- 2.4* < > = values in this interval not displayed. No results for input(s): MG in the last 168 hours. Invalid input(s): PHOS, CA Recent Labs 08/08/18 0640 08/09/18 0543 08/10/18 0528 WBC 9.51 9.54 10.01 RBC 3.00* 2.92* 2.97* HB 9.6* 9.2* 9.4* HCT 29.0* 28.3* 29.0* PLT 183 196 223 Recent Labs 08/04/18 1625 08/08/18 0640 APTT 73.6* < > 69.2* FIBRINOGEN 355 -- -- < > = values in this interval not displayed. CBG's Recent Labs 08/07/18 0805 08/07/18 1843 08/07/18 2213 08/08/18 0640 08/08/18 0800 08/08/18 1733 08/08/18 2134 08/09/18 0543 08/09/18 1027 08/10/18 0528 GLU 132* 133* 149* 102* 105* 117* 137* 107* 112* 98 ASSESSMENT/PLAN: Gloria Adhikari is a 68 y.o. female with history CAD, NSTEMI (12/28/2014) s/p bare metal stent placement x 2 on ASA, HTN, tobacco dependence and COPD. She underwent multiple w ound dehiscence and cranioplasty infections following a right pterional craniotomy for clipp ing of ruptured aneurysm in 2007. She recently underwent on 08/03/18 s/p right mesh craniopl asty, bilateral latissimus dorsi free flap, and split thickness skin graft from back. She is recovering within expectations post-operative day 7 and should be ready to go home tomorrow . Continue Flap care - Maintain LAZARA drain - will assess at post-op appointment next week - Continue reg diet - Pt will require home health for wound care needs in [place] - F/U in clinic Tuesday Dispo: Home tomorrow Valente Presley DDS, MD This assessment and plan was formulated both independently and in conjunction with the Head and Neck team as well as the attending provider, is accurate to the best of my knowledge, a nd is subject to change based on clinical developments. obarnac Mel Jo MD - 08/10/2018 8:12 AM PDT INPATIENT PROGRESS NOTE Hospital Day:7 Attending Physician: Ata White MD Interval Hx: - NAEO. - No complaints this AM - Excited for DC tomorrow. - H/H stable 9.06/19. Physical Exam: Last Vitals: BP 106/53 (BP Location: Left upper arm, Patient Position: Lying left side) | Pulse 87 | Temp 37.1 C (98.8 F) (Oral) | Resp 16 | Ht 1.499 m (4' 11") | Wt 50.5 kg (111 lb 5.3 oz) | SpO2 94% | BMI 22.49 kg/m | BSA 1.45 m O2 Delivery Device: None (r oom air) (08/10/18 0509) 24 Hour Vital Min/Max: Systolic (24hrs), Av , Min:103 , Max:118 Diastolic (24hrs), Av, Min:40, Max:57Puls e Min: 80 Max: 99 Temp Min: 36.3 C (97.3 F) Max: 36.9 C (98.4 F) Resp Min: 16 Max: 20 SpO2 Min: 91 % Max: 96 % Intake/Output Summary (Last 24 hours) at 08/08/2018 0714 Last data filed at 08/08/2018 0500 Gross per 24 hour Intake 660 ml Output 260 ml Net 400 ml Physical Exam: General: Awake, alert and oriented to person, place and time HEENT: gaze conjugate, EOM's intact, slight decrease in right brow raise but facial moveme nt otherwise symmetric Bulky latissimus dorsi free flap on right frontotemporal area, soft and warm, overlying ski n graft with some ecchymotic areas medially. Muscle exposed laterally. Incisions appear c/d/i with minimal SS drainage Language: fluent and articulate without evidence of aphasia or dysarthria Motor: 5/5 strength BUE/BLE, SILT throughout Labs: CBC with diff last 72 hours (or 3 results) Recent Labs 08/06/18 0406 08/07/18 0615 08/08/18 0640 WBC 9.10 9.03 9.51 HB 7.5* 9.1* 9.6* HCT 22.5* 27.2* 29.0* PLT 131* 144* 183 Chemistries: Last 72 Hours (or 3 results): Recent Labs 08/06/18 0406 08/07/18 0615 08/07/18 0805 08/07/18 1843 08/07/18 2213 NA 141 -- 142 -- -- -- K 4.1 -- 4.0 -- -- -- CL 110* -- 113* -- -- -- BICARB 26 -- 25 -- -- -- BUN 11 -- 11 -- -- -- EGFRAFRICAN >60 -- >60 -- -- -- CR 0.67 -- 0.71 -- -- -- GLU 92 < > 101* 132* 133* 149* CA 7.6* -- 7.7* -- -- -- PO4 3.2 -- 3.0 -- -- -- < > = values in this interval not displayed. CULTURE RESULT Date Value Ref Range Status 05/13/2008 Corrected CSF Culture Source...............: Cerebrospinal Fluid RLB Gram Stain...........: Gram smear performed at [facility]. Culture: Final Report: No growth after 3 days. Final Report 04/29/2008 Corrected CSF Culture Source...............: Cerebrospinal Fluid RLB Gram Stain...........: Gram smear performed at [facility]. Culture: Rare Methicillin resistant Staphylococcus aureus Final ID MRSA Cefazolin R Clindamycin S Erythromycin R Oxacillin R Penicillin R Tetracycline S Trimeth/Sulfa S Vancomycin S Final Report Comment: Test performed at [facility]. 03/07/2008 Corrected CSF Culture Source...............: Cerebrospinal Fluid RLB Gram Stain...........: Gram smear performed at [facility]. Culture: Final Report: No growth after 3 days. Final Report Comment: Test performed at [facility]. 03/03/2008 Corrected CSF Culture Source...............: Cerebrospinal Fluid RLB Gram Stain...........: Gram smear performed at [facility]. Culture: Final Report: No growth after 3 days. Final Report Comment: Test performed at [facility]. 03/03/2008 Corrected Wound Culture Source...............: Skin Abscess RLB Gram Stain...........: Rare Squamous epithelial cells Rare PMN's Rare Gram positive cocci Culture: 1+ Methicillin resistant Staphylococcus aureus Final ID MRSA Cefazolin R Clindamycin S Erythromycin R Oxacillin R Penicillin R Tetracycline S Trimeth/Sulfa S Vancomycin S Final Report Resulted: 03/05/08 RLB ([facility]) [facility] [address] [place] [address] Comment: Test performed at [facility]. CULTURE RESULT Date Value Ref Range Status 07/11/2018 Final Staphylococcus epidermidis (A) 05/14/2018 Final Final Report:No Bacteria or Yeast isolated at 5 days. 05/14/2018 Final Final Report:No Bacteria or Yeast isolated at 5 days. 12/05/2017 Final Staphylococcus aureus (A) 12/05/2017 Final Staphylococcus aureus (A) 12/05/2017 Final Staphylococcus aureus (A) 12/05/2017 Final Staphylococcus aureus (A) 12/03/2017 Final Final Report:No Bacteria or Yeast isolated at 5 days. Current Medications: acetaminophen (TYLENOL) tablet 325-650 mg, 325-650 mg, oral, Q6H PRN OR acetaminophen ( TYLENOL) tablet 325-650 mg, 325-650 mg, feeding tube, Q6H PRN OR acetaminophen (TYLENOL) suppository 325-650 mg, 325-650 mg, rectal, Q6H PRN artificial tears (dextran 70-hypromellose) (NATURE'S TEARS) 0.1-0.3 % ophthalmic drops 1 dr op, 1 drop, Both Eyes, PRN ascorbic acid (vitamin C) tablet 500 mg, 500 mg, oral, BID OR ascorbic acid (vitamin C) tablet 500 mg, 500 mg, feeding tube, BID atorvastatin (LIPITOR) tablet 80 mg, 80 mg, oral, DAILY bisacodyl (DULCOLAX) suppository 10 mg, 10 mg, rectal, DAILY PRN dextrose 50 % in water IV 25 mL, 25 mL, intravenous, PRN enoxaparin (LOVENOX) injection 40 mg, 40 mg, subcutaneous, QPM glucagon (GLUCAGEN) injection 1 mg, 1 mg, intramuscular, PRN glucose chewable tablet 16 g, 16 g, oral, PRN hydrALAZINE (APRESOLINE) injection 10-20 mg, 10-20 mg, intravenous, Q10MIN PRN labetalol (TRANDATE) IV injection 10-20 mg, 10-20 mg, intravenous, Q10MIN PRN metoclopramide HCl (REGLAN) injection 5-10 mg, 5-10 mg, intravenous, Q4H PRN metoprolol succinate (TOPROL-XL) tablet 50 mg, 50 mg, oral, DAILY nicotine (NICOTROL) 7 mg/24 hr 1 patch, 1 patch, transdermal, DAILY [COMPLETED] ondansetron (ZOFRAN) injection 4 mg, 4 mg, intravenous, Q12H FOLLOWED BY on dansetron (ZOFRAN) injection 4 mg, 4 mg, intravenous, Q12H PRN polyethylene glycol (MIRALAX) packet 17 g, 17 g, oral, DAILY polyethylene glycol (MIRALAX) packet 34 g, 34 g, oral, TID PRN senna-docusate (SENOKOT S) 8.6-50 mg 2 tablet, 2 tablet, oral, BID spironolactone (ALDACTONE) tablet 25 mg, 25 mg, oral, DAILY zinc sulfate (ORAZINC) tablet 25 mg elemental, 110 mg total salt, oral, DAILY OR zinc s ulfate (ORAZINC) tablet 25 mg elemental, 110 mg total salt, feeding tube, DAILY ASSESSMENT: Gloria Adhikari is a 68 y.o. year old female with complicated history following castillo rgical management of ruptured anterior communicating artery aneurysm and hydrocephalus which occurred in 2007, who has required multiple surgical procedures for wound infection, explan t and re-implantation of cranioplasty, and eventual plastic surgery consultation. Most rec ently, she underwent synthes cranioplasty (05/08/18) with rotational flap performed by Dr Susu White. She re-presented with wound dehiscence managed with over sewing of the wound by ENT ( 05/14-05/17). She re-presented with recurrent cranioplasty exposure on 07/10, for which she w as admitted and underwent explant of her cranioplasty and wound closure by ENT the following day. Intraoperative culture was notable for growth of staph epidermidis, for which ID recom mended no treatment at that time. She was seen in clinic on 07/28 with recurrent dehiscence fo llowing removal of sutures. She thus returned for elective titanium mesh cranioplasty with E NT latissimus dorsi free flap coverage on 08/03, from which she is recovering well. PLAN: Wound care per primary team. Encourage mobilization, acute care rehab. OK for DVT prophylaxis from NSG perspective, if felt warranted. Smoking cessation. Neurosurgery to continue to follow. Ok for [place] at [place] time [place] [facility]. Mel Shelton MD Resident Physician, PGY1 Service Pager: [phone] oOsei Krueger MD - 08/09/2018 8:56 AM PDT INPATIENT PROGRESS NOTE Hospital Day:6 Attending Physician: Ata White MD Interval Hx: - Off the Heparin gtt. - No complaints this AM - Excited for DC on Jeff. - H/H stable 9.2/28.3. Physical Exam: Last Vitals: BP 121/53 (BP Location: Left upper arm, Patient Position: Sitting) | Pulse 92 | Temp 36.7 C (98.1 F) (Oral) | Resp 18 | Ht 1.499 m (4' 11") | Wt 50.5 kg (111 lb 5.3 oz) | SpO2 93% | BMI 22.49 kg/m | BSA 1.45 m O2 Delivery Device: None (room air) (08/09/18 0356) 24 Hour Vital Min/Max: Systolic (24hrs), Av , Min:97 , Max:125 Diastolic (24hrs), Av, Min:53, Max:94Pulse Min: 80 Max: 99 Temp Min: 36.3 C (97.3 F) Max: 36.9 C (98.4 F) Resp Min: 16 Max: 20 SpO2 Min: 91 % Max: 96 % Intake/Output Summary (Last 24 hours) at 08/08/2018 0714 Last data filed at 08/08/2018 0500 Gross per 24 hour Intake 660 ml Output 260 ml Net 400 ml Physical Exam: General: Awake, alert and oriented to person, place and time HEENT: gaze conjugate, EOM's intact, slight decrease in right brow raise but facial moveme nt otherwise symmetric Bulky latissimus dorsi free flap on right frontotemporal area, soft and warm, overlying ski n graft with some ecchymotic areas medially. Muscle exposed laterally. Incisions appear c/d/i with minimal SS drainage Language: fluent and articulate without evidence of aphasia or dysarthria Motor: 5/5 strength BUE/BLE, SILT throughout Labs: CBC with diff last 72 hours (or 3 results) Recent Labs 08/06/18 0406 08/07/18 0615 08/08/18 0640 WBC 9.10 9.03 9.51 HB 7.5* 9.1* 9.6* HCT 22.5* 27.2* 29.0* PLT 131* 144* 183 Chemistries: Last 72 Hours (or 3 results): Recent Labs 08/06/18 0406 08/07/18 0615 08/07/18 0805 08/07/18 1843 08/07/18 2213 NA 141 -- 142 -- -- -- K 4.1 -- 4.0 -- -- -- CL 110* -- 113* -- -- -- BICARB 26 -- 25 -- -- -- BUN 11 -- 11 -- -- -- EGFRAFRICAN >60 -- >60 -- -- -- CR 0.67 -- 0.71 -- -- -- GLU 92 < > 101* 132* 133* 149* CA 7.6* -- 7.7* -- -- -- PO4 3.2 -- 3.0 -- -- -- < > = values in this interval not displayed. CULTURE RESULT Date Value Ref Range Status 05/13/2008 Corrected CSF Culture Source...............: Cerebrospinal Fluid RLB Gram Stain...........: Gram smear performed at [facility]. Culture: Final Report: No growth after 3 days. Final Report 04/29/2008 Corrected CSF Culture Source...............: Cerebrospinal Fluid RLB Gram Stain...........: Gram smear performed at [facility]. Culture: Rare Methicillin resistant Staphylococcus aureus Final ID MRSA Cefazolin R Clindamycin S Erythromycin R Oxacillin R Penicillin R Tetracycline S Trimeth/Sulfa S Vancomycin S Final Report Comment: Test performed at [facility]. 03/07/2008 Corrected CSF Culture Source...............: Cerebrospinal Fluid RLB Gram Stain...........: Gram smear performed at [facility]. Culture: Final Report: No growth after 3 days. Final Report Comment: Test performed at [facility]. 03/03/2008 Corrected CSF Culture Source...............: Cerebrospinal Fluid RLB Gram Stain...........: Gram smear performed at [facility]. Culture: Final Report: No growth after 3 days. Final Report Comment: Test performed at [facility]. 03/03/2008 Corrected Wound Culture Source...............: Skin Abscess RLB Gram Stain...........: Rare Squamous epithelial cells Rare PMN's Rare Gram positive cocci Culture: 1+ Methicillin resistant Staphylococcus aureus Final ID MRSA Cefazolin R Clindamycin S Erythromycin R Oxacillin R Penicillin R Tetracycline S Trimeth/Sulfa S Vancomycin S Final Report Resulted: 03/05/08 RLB ([facility]) [facility] [address] [place] [address] Comment: Test performed at [facility]. CULTURE RESULT Date Value Ref Range Status 07/11/2018 Final Staphylococcus epidermidis (A) 05/14/2018 Final Final Report:No Bacteria or Yeast isolated at 5 days. 05/14/2018 Final Final Report:No Bacteria or Yeast isolated at 5 days. 12/05/2017 Final Staphylococcus aureus (A) 12/05/2017 Final Staphylococcus aureus (A) 12/05/2017 Final Staphylococcus aureus (A) 12/05/2017 Final Staphylococcus aureus (A) 12/03/2017 Final Final Report:No Bacteria or Yeast isolated at 5 days. Current Medications: acetaminophen (TYLENOL) tablet 325-650 mg, 325-650 mg, oral, Q6H PRN OR acetaminophen ( TYLENOL) tablet 325-650 mg, 325-650 mg, feeding tube, Q6H PRN OR acetaminophen (TYLENOL) suppository 325-650 mg, 325-650 mg, rectal, Q6H PRN artificial tears (dextran 70-hypromellose) (NATURE'S TEARS) 0.1-0.3 % ophthalmic drops 1 dr op, 1 drop, Both Eyes, PRN ascorbic acid (vitamin C) tablet 500 mg, 500 mg, oral, BID OR ascorbic acid (vitamin C) tablet 500 mg, 500 mg, feeding tube, BID atorvastatin (LIPITOR) tablet 80 mg, 80 mg, oral, DAILY bisacodyl (DULCOLAX) suppository 10 mg, 10 mg, rectal, DAILY PRN dextrose 50 % in water IV 25 mL, 25 mL, intravenous, PRN enoxaparin (LOVENOX) injection 40 mg, 40 mg, subcutaneous, QPM glucagon (GLUCAGEN) injection 1 mg, 1 mg, intramuscular, PRN glucose chewable tablet 16 g, 16 g, oral, PRN hydrALAZINE (APRESOLINE) injection 10-20 mg, 10-20 mg, intravenous, Q10MIN PRN insulin lispro (HUMALOG) injection 1-16 Units, 1-16 Units, subcutaneous, QID labetalol (TRANDATE) IV injection 10-20 mg, 10-20 mg, intravenous, Q10MIN PRN metoclopramide HCl (REGLAN) injection 5-10 mg, 5-10 mg, intravenous, Q4H PRN metoprolol succinate (TOPROL-XL) tablet 50 mg, 50 mg, oral, DAILY nicotine (NICOTROL) 7 mg/24 hr 1 patch, 1 patch, transdermal, DAILY [COMPLETED] ondansetron (ZOFRAN) injection 4 mg, 4 mg, intravenous, Q12H FOLLOWED BY on dansetron (ZOFRAN) injection 4 mg, 4 mg, intravenous, Q12H PRN polyethylene glycol (MIRALAX) packet 17 g, 17 g, oral, DAILY polyethylene glycol (MIRALAX) packet 34 g, 34 g, oral, TID PRN senna-docusate (SENOKOT S) 8.6-50 mg 2 tablet, 2 tablet, oral, BID spironolactone (ALDACTONE) tablet 25 mg, 25 mg, oral, DAILY zinc sulfate (ORAZINC) tablet 25 mg elemental, 110 mg total salt, oral, DAILY OR zinc s ulfate (ORAZINC) tablet 25 mg elemental, 110 mg total salt, feeding tube, DAILY ASSESSMENT: Gloria Adhikari is a 68 y.o. year old female with complicated history following castillo rgical management of ruptured anterior communicating artery aneurysm and hydrocephalus which occurred in 2007, who has required multiple surgical procedures for wound infection, explan t and re-implantation of cranioplasty, and eventual plastic surgery consultation. Most rec ently, she underwent synthes cranioplasty (05/08/18) with rotational flap performed by Dr Susu White. She re-presented with wound dehiscence managed with over sewing of the wound by ENT ( 05/14-05/17). She re-presented with recurrent cranioplasty exposure on 07/10, for which she w as admitted and underwent explant of her cranioplasty and wound closure by ENT the following day. Intraoperative culture was notable for growth of staph epidermidis, for which ID recom mended no treatment at that time. She was seen in clinic on 07/28 with recurrent dehiscence fo llowing removal of sutures. She thus returned for elective titanium mesh cranioplasty with E NT latissimus dorsi free flap coverage on 08/03, from which she is recovering well. PLAN: Wound care per primary team. Encourage mobilization, acute care rehab. OK for DVT prophylaxis from NSG perspective, if felt warranted. Smoking cessation. Neurosurgery to continue to follow. Ok for discharge at any time from NSG perspective. Mel Shelton MD Resident Physician, PGY1 Service Pager: [phone] Associated attestation - Casey Hewitt MD - 08/10/2018 1:41 PM PDTI have seen and examine d the patient. I agree with the resident's documentation and have documented any additions or exceptions. MD Sakina Capps Jonathan, MD,DDS - 08/09/2018 6:55 AM PDTFormatting of this note might be differe nt from the original. Head and Neck Surgery Inpatient Daily Progress Note: Primary Care Provider: Mary Vazquez PA-C Admission Date: 08/03/2018 GLORIA ADHIKARI, [id number] Hospital Day #6 PROCEDURES: Dr. Diego 08/03/18 - Right mesh cranioplasty Dr. White (ENT) 08/03/18 - Free autologous flap from right latissimus dorsi to right scalp defect SUBJECTIVE INTERVAL EVENTS: Afebrile, hemodynamically stable, adequate UOP Heparin gtt discontinued On with good saturations OBJECTIVE Last 24 hour min/max Temp: 36.7 C (98.1 F) Temp Min: 36.5 C (97.7 F) Max: 37 C (98.6 F) Pulse: 92 Pulse Min: 89 Max: 110 Resp: 18 Resp Min: 16 Max: 18 BP: 121/53 BP Min: 97/56 Max: 125/57 SpO2: 93 % SpO2 Min: 93 % Max: 100 % Body mass index is 22.49 kg/m. Intake/Output Summary (Last 24 hours) at 08/09/2018 7131 Last data filed at 08/09/2018 0500 Gross per 24 hour Intake 640 ml Output 115 ml Net 525 ml PHYSICAL EXAM: General: Alert, comfortable, NAD, communicative Flap (scalp): warm, soft, pen doppler signal present at monitoring site. Xeroform in place. Edematous, similar in appearance. Muscle exposed, bleeding appropriately. Right back Donor site: Dressing intact. Jps serosang. LABS: Recent Labs 08/07/18 0615 08/08/18 0640 08/08/18 17308/08/18 21308/09/18 0543 NA 142 -- 139 -- -- -- 137 K 4.0 -- 4.1 -- -- -- 4.4 CL 113* -- 109* -- -- -- 106 BICARB 25 -- 26 -- -- -- 25 BUN 11 -- 6 -- -- -- 9 CR 0.71 -- 0.68 -- -- -- 0.71 GLU 101* < > 102* < > 117* 137* 107* CA 7.7* -- 8.0* -- -- -- 8.1* ALB 2.3* -- 2.4* -- -- -- 2.3* < > = values in this interval not displayed. No results for input(s): MG in the last 168 hours. Invalid input(s): PHOS, CA Recent Labs 08/07/18 0615 08/08/18 0640 08/09/18 0543 WBC 9.03 9.51 9.54 RBC 2.88* 3.00* 2.92* HB 9.1* 9.6* 9.2* HCT 27.2* 29.0* 28.3* PLT 144* 183 196 Recent Labs 08/04/18 1625 08/08/18 0640 APTT 73.6* < > 69.2* FIBRINOGEN 355 -- -- < > = values in this interval not displayed. CBG's Recent Labs 08/06/18 2246 08/07/18 0615 08/07/18 0805 08/07/18 1843 08/07/18 2213 08/08/18 0640 08/08/18 0800 08/08/18 1733 08/08/18 2134 08/09/18 0543 GLU 130* 101* 132* 133* 149* 102* 105* 117* 137* 107* ASSESSMENT/PLAN: Gloria Adhikari is a 68 y.o. female with history CAD, NSTEMI (12/28/2014) s/p bare metal stent placement x 2 on ASA, HTN, tobacco dependence and COPD. She underwent multiple w ound dehiscence and cranioplasty infections following a right pterional craniotomy for clipp ing of ruptured aneurysm in 2007. She recently underwent on 08/03/18 s/p right mesh craniopl asty, bilateral latissimus dorsi free flap, and split thickness skin graft from back. She is recovering within expectations post-operative day 6. Continue Flap care - Maintain LAZARA drains -will likely need to come out after discharge, #1 removed today - Continue reg diet - Pt will require home health for wound care needs Dispo: Continue wards care with discharge this Tuesday Valente Presley DDS, MD This assessment and plan was formulated both independently and in conjunction with the Head and Neck team as well as the attending provider, is accurate to the best of my knowledge, a nd is subject to change based on clinical developments. Nettie Knowles PA - 7:13 AM PDT INPATIENT PROGRESS NOTE Hospital Day:5 Author; ANSON MULLINS Attending Physician: Ata White MD Interval Hx: -pt feeling better, brighter spirits -mobilizing about the unit today -H/H stable () Physical Exam: Last Vitals: BP 97/55 (BP Location: Left upper arm, Patient Position: Sitting) | Pulse 85 | Temp 36.6 C (97.9 F) (Oral) | Resp 20 | Ht 1.499 m (4' 11") | Wt 49.3 kg (108 lb 9 .6 oz) | SpO2 96% | BMI 21.93 kg/m | BSA 1.43 m O2 Delivery Device: None (room air) (08/08/18 0004) 24 Hour Vital Min/Max: Systolic (24hrs), Av , Min:91 , Max:121 Diastolic (24hrs), Av, Min:47, Max:65Pulse Min: 80 Max: 99 Temp Min: 36.3 C (97.3 F) Max: 36.9 C (98.4 F) Resp Min: 16 Max: 20 SpO2 Min: 91 % Max: 96 % Intake/Output Summary (Last 24 hours) at 08/08/2018 0714 Last data filed at 08/08/2018 0500 Gross per 24 hour Intake 660 ml Output 260 ml Net 400 ml Physical Exam: General: Awake, alert and oriented to person, place and time HEENT: gaze conjugate, EOM's intact, faces symmetric Language: fluent and articulate without evidence of aphasia or dysarthria Motor: FORBES's Derm: xeroform dressing atop flap; minimal oozing from flap site Labs: CBC with diff last 72 hours (or 3 results) Recent Labs 08/06/18 0406 08/07/18 0615 08/08/18 0640 WBC 9.10 9.03 9.51 HB 7.5* 9.1* 9.6* HCT 22.5* 27.2* 29.0* PLT 131* 144* 183 Chemistries: Last 72 Hours (or 3 results): Recent Labs 08/06/18 0406 08/07/18 0615 08/07/18 0805 08/07/18 1843 08/07/18 2213 NA 141 -- 142 -- -- -- K 4.1 -- 4.0 -- -- -- CL 110* -- 113* -- -- -- BICARB 26 -- 25 -- -- -- BUN 11 -- 11 -- -- -- EGFRAFRICAN >60 -- >60 -- -- -- CR 0.67 -- 0.71 -- -- -- GLU 92 < > 101* 132* 133* 149* CA 7.6* -- 7.7* -- -- -- PO4 3.2 -- 3.0 -- -- -- < > = values in this interval not displayed. CULTURE RESULT Date Value Ref Range Status 05/13/2008 Corrected CSF Culture Source...............: Cerebrospinal Fluid RLB Gram Stain...........: Gram smear performed at [facility]. Culture: Final Report: No growth after 3 days. Final Report 04/29/2008 Corrected CSF Culture Source...............: Cerebrospinal Fluid RLB Gram Stain...........: Gram smear performed at [facility]. Culture: Rare Methicillin resistant Staphylococcus aureus Final ID MRSA Cefazolin R Clindamycin S Erythromycin R Oxacillin R Penicillin R Tetracycline S Trimeth/Sulfa S Vancomycin S Final Report Comment: Test performed at [facility]. 03/07/2008 Corrected CSF Culture Source...............: Cerebrospinal Fluid RLB Gram Stain...........: Gram smear performed at [facility]. Culture: Final Report: No growth after 3 days. Final Report Comment: Test performed at [facility]. 03/03/2008 Corrected CSF Culture Source...............: Cerebrospinal Fluid RLB Gram Stain...........: Gram smear performed at [facility]. Culture: Final Report: No growth after 3 days. Final Report Comment: Test performed at [facility]. 03/03/2008 Corrected Wound Culture Source...............: Skin Abscess RLB Gram Stain...........: Rare Squamous epithelial cells Rare PMN's Rare Gram positive cocci Culture: 1+ Methicillin resistant Staphylococcus aureus Final ID MRSA Cefazolin R Clindamycin S Erythromycin R Oxacillin R Penicillin R Tetracycline S Trimeth/Sulfa S Vancomycin S Final Report Resulted: 03/05/08 RLB ([facility]) [facility] [address] [place] [address] Comment: Test performed at [facility]. CULTURE RESULT Date Value Ref Range Status 07/11/2018 Final Staphylococcus epidermidis (A) 05/14/2018 Final Final Report:No Bacteria or Yeast isolated at 5 days. 05/14/2018 Final Final Report:No Bacteria or Yeast isolated at 5 days. 12/05/2017 Final Staphylococcus aureus (A) 12/05/2017 Final Staphylococcus aureus (A) 12/05/2017 Final Staphylococcus aureus (A) 12/05/2017 Final Staphylococcus aureus (A) 12/03/2017 Final Final Report:No Bacteria or Yeast isolated at 5 days. Current Medications: acetaminophen (TYLENOL) tablet 325-650 mg, 325-650 mg, oral, Q6H PRN OR acetaminophen ( TYLENOL) tablet 325-650 mg, 325-650 mg, feeding tube, Q6H PRN OR acetaminophen (TYLENOL) suppository 325-650 mg, 325-650 mg, rectal, Q6H PRN artificial tears (dextran 70-hypromellose) (NATURE'S TEARS) 0.1-0.3 % ophthalmic drops 1 dr op, 1 drop, Both Eyes, PRN ascorbic acid (vitamin C) tablet 500 mg, 500 mg, oral, BID OR ascorbic acid (vitamin C) tablet 500 mg, 500 mg, feeding tube, BID atorvastatin (LIPITOR) tablet 80 mg, 80 mg, oral, DAILY bisacodyl (DULCOLAX) suppository 10 mg, 10 mg, rectal, DAILY PRN dextrose 50 % in water IV 25 mL, 25 mL, intravenous, PRN glucagon (GLUCAGEN) injection 1 mg, 1 mg, intramuscular, PRN glucose chewable tablet 16 g, 16 g, oral, PRN heparin 25,000 Units in NaCl 0.9 % (NS) 250 mL (100 Units/mL) IV infusion, 1-2,500 Units/hr , intravenous, CONTINUOUS hydrALAZINE (APRESOLINE) injection 10-20 mg, 10-20 mg, intravenous, Q10MIN PRN insulin lispro (HUMALOG) injection 1-16 Units, 1-16 Units, subcutaneous, QID labetalol (TRANDATE) IV injection 10-20 mg, 10-20 mg, intravenous, Q10MIN PRN metoclopramide HCl (REGLAN) injection 5-10 mg, 5-10 mg, intravenous, Q4H PRN metoprolol succinate (TOPROL-XL) tablet 50 mg, 50 mg, oral, DAILY nicotine (NICOTROL) 7 mg/24 hr 1 patch, 1 patch, transdermal, DAILY [COMPLETED] ondansetron (ZOFRAN) injection 4 mg, 4 mg, intravenous, Q12H FOLLOWED BY on dansetron (ZOFRAN) injection 4 mg, 4 mg, intravenous, Q12H PRN polyethylene glycol (MIRALAX) packet 17 g, 17 g, oral, DAILY polyethylene glycol (MIRALAX) packet 34 g, 34 g, oral, TID PRN senna-docusate (SENOKOT S) 8.6-50 mg 2 tablet, 2 tablet, oral, BID spironolactone (ALDACTONE) tablet 25 mg, 25 mg, oral, DAILY zinc sulfate (ORAZINC) tablet 25 mg elemental, 110 mg total salt, oral, DAILY OR zinc s ulfate (ORAZINC) tablet 25 mg elemental, 110 mg total salt, feeding tube, DAILY ASSESSMENT: Gloria Adhikari is a 68 y.o. year old female with complicated history following castillo rgical management of ruptured anterior communicating artery aneurysm and hydrocephalus which occurred in 2007, who has required multiple surgical procedures for wound infection, explan t and re-implantation of cranioplasty, and eventual plastic surgery consultation. Most rec ently, she underwent synthes cranioplasty (05/08/18) with rotational flap performed by Dr Susu White. She represented with wound dehiscence managed with over sewing of the wound by ENT (-05/17). Unfortunately, Ms Adhikari again presented for medical attention after her son n oticed recurrent skin opening with cranioplasty exposure. She was [facility] on 07[facility]10 and underwent explant of her cranioplasty and wound closure by ENT the follow ing day. She was discharged to home on 07/13. Ms Adhikari's surgical culture was notable f or growth of staph epidermidis. ID recommended no treatment at that time. She was seen in [facility] on 07/28 at which time her wound had dehisced after sutures removed in ENT-plastics clini c. As such, surgical plan for free flap was made. Ms Adhikari was admitted to [facility] on 08/03 f or right mesh cranioplasty, wound debridement and lat dorsi flap in coordination with Jose Bass and Christopher. PLAN: Wound care per primary team. Encourage mobilization, acute care rehab. OK for DVT prophylaxis from NSG perspective, if felt warranted. Smoking cessation. Neurosurgery to continue to follow. ANSON MULLINS [facility] [address] [address] [address] [phone] signed by ANSON Martinez at 08/08/2018 2:51 PM PDTValente Law i, MD,DDS - 08/08/2018 5:57 AM PDT Head and Neck Surgery Inpatient Daily Progress Note: Primary Care Provider: Mary Vazquez PA-C Admission Date: 08/03/2018 GLORIA ADHIKARI, [id number] Hospital Day #5 PROCEDURES: Dr. Diego 08/03/18 - Right mesh cranioplasty Dr. White (ENT) 08/03/18 - Free autologous flap from right latissimus dorsi to right scalp defect SUBJECTIVE INTERVAL EVENTS: AF, HD stable, UOP x3, + BM In good spirits, no complaints OBJECTIVE Last 24 hour min/max Temp: 36.6 C (97.9 F) Temp Min: 36.3 C (97.3 F) Max: 36.9 C (98.4 F) Pulse: 85 Pulse Min: 80 Max: 99 Resp: 20 Resp Min: 16 Max: 20 BP: 97/55 BP Min: 91/58 Max: 121/65 SpO2: 96 % SpO2 Min: 91 % Max: 96 % Body mass index is 21.93 kg/m. Intake/Output Summary (Last 24 hours) at 08/08/2018 0751 Last data filed at 08/08/2018 0500 Gross per 24 hour Intake 660 ml Output 165 ml Net 495 ml PHYSICAL EXAM: General: Alert, comfortable, NAD, communicative Flap (scalp): warm, soft, pen doppler signal present at monitoring site. Xeroform in place. Edematous. Muscle exposed, bleeding appropriately. Right back Donor site: Dressing intact. Lazara serosang. LABS: Recent Labs 08/06/18 0406 08/07/18 0615 08/07/18 1843 08/07/18 2213 08/08/18 0640 NA 141 -- 142 -- -- -- 139 K 4.1 -- 4.0 -- -- -- 4.1 CL 110* -- 113* -- -- -- 109* BICARB 26 -- 25 -- -- -- 26 BUN 11 -- 11 -- -- -- 6 CR 0.67 -- 0.71 -- -- -- 0.68 GLU 92 < > 101* < > 133* 149* 102* CA 7.6* -- 7.7* -- -- -- 8.0* ALB 2.1* -- 2.3* -- -- -- 2.4* < > = values in this interval not displayed. No results for input(s): MG in the last 168 hours. Invalid input(s): PHOS, CA Recent Labs 08/06/18 0406 08/07/18 0615 08/08/18 0640 WBC 9.10 9.03 9.51 RBC 2.35* 2.88* 3.00* HB 7.5* 9.1* 9.6* HCT 22.5* 27.2* 29.0* PLT 131* 144* 183 Recent Labs 08/04/18 1625 08/08/18 0640 APTT 73.6* < > 69.2* FIBRINOGEN 355 -- -- < > = values in this interval not displayed. CBG's Recent Labs 08/06/18 0406 08/06/18 0754 08/06/18 1329 08/06/18 1830 08/06/18 2246 08/07/18 0615 08/07/18 0805 08/07/18 1843 08/07/18 2213 08/08/18 0640 GLU 92 115* 114* 127* 130* 101* 132* 133* 149* 102* ASSESSMENT/PLAN: Gloria Adhikari is a 68 y.o. female with history CAD, NSTEMI (12/28/2014) s/p bare metal stent placement x 2 on ASA, HTN, tobacco dependence and COPD. She underwent multiple w ound dehiscence and cranioplasty infections following a right pterional craniotomy for clipp ing of ruptured aneurysm in 2007. She recently underwent on 08/03/18 s/p right mesh craniopl asty, bilateral latissimus dorsi free flap, and split thickness skin graft from back. She is recovering within expectations post-operative day 5. Continue Flap care - Maintain LAZARA drains -will likely need to come out after discharge - Continue reg diet - Discontinue hep gtt with goal of 50-70 Dispo: Continue acute rosas care, discharge in coming days pending clinical course Valente Presley DDS, MD This assessment and plan was formulated both independently and in conjunction with the Head and Neck team as well as the attending provider, is accurate to the best of my knowledge, a nd is subject to change based on clinical developments. Nettie Knowles PA - 1:32 PM PDT INPATIENT PROGRESS NOTE Hospital Day:4 Author; ANSON MULLINS Attending Physician: Ata White MD Interval Hx: -Transfused 1UPRBCs for hematocrit 22 -> 27 -Intermittently hypotensive Physical Exam: Last Vitals: BP 116/51 (BP Location: Left upper arm, Patient Position: Lying on back) | Pu lse 80 | Temp 36.3 C (97.3 F) (Axillary) | Resp 16 | Ht 1.499 m (4' 11") | Wt 50.7 k g (111 lb 12.4 oz) | SpO2 94% | BMI 22.58 kg/m | BSA 1.45 m O2 Delivery Device: None (room air) (08/07/18 1138) 24 Hour Vital Min/Max: Systolic (24hrs), Av , Min:91 , Max:122 Diastolic (24hrs), Av, Min:48, Max:71Pulse Min: 80 Max: 99 Temp Min: 36.3 C (97.3 F) Max: 36.9 C (98.4 F) Resp Min: 16 Max: 20 SpO2 Min: 89 % Max: 97 % Intake/Output Summary (Last 24 hours) at 08/07/2018 1332 Last data filed at 08/07/2018 0723 Gross per 24 hour Intake 180 ml Output 205 ml Net -25 ml Physical Exam: General: Awake, alert and oriented to person, place and time HEENT: gaze conjugate, EOM's intact, faces symmetric Language: fluent and articulate without evidence of aphasia or dysarthria Motor: FORBES's Derm: xeroform dressing atop flap; right facial/neck/frontal swelling; scant oozing neck fr om elvin site Labs: CBC with diff last 72 hours (or 3 results) Recent Labs 08/05/18 0140 08/06/18 0406 08/07/18 0615 WBC 11.23* 9.10 9.03 HB 8.4* 7.5* 9.1* HCT 25.0* 22.5* 27.2* PLT 144* 131* 144* Chemistries: Last 72 Hours (or 3 results): Recent Labs 08/05/18 0140 08/06/18 0406 08/06/18 2246 08/07/18 0615 08/07/18 0805 NA 141 -- 141 -- -- 142 -- K 4.0 -- 4.1 -- -- 4.0 -- CL 110* -- 110* -- -- 113* -- BICARB 25 -- 26 -- -- 25 -- BUN 17 -- 11 -- -- 11 -- EGFRAFRICAN >60 -- >60 -- -- >60 -- CR 0.75 -- 0.67 -- -- 0.71 -- GLU 99 < > 92 < > 130* 101* 132* CA 7.5* -- 7.6* -- -- 7.7* -- PO4 2.7 -- 3.2 -- -- 3.0 -- < > = values in this interval not displayed. CULTURE RESULT Date Value Ref Range Status 05/13/2008 Corrected CSF Culture Source...............: Cerebrospinal Fluid RLB Gram Stain...........: Gram smear performed at [facility]. Culture: Final Report: No growth after 3 days. Final Report 04/29/2008 Corrected CSF Culture Source...............: Cerebrospinal Fluid RLB Gram Stain...........: Gram smear performed at [facility]. Culture: Rare Methicillin resistant Staphylococcus aureus Final ID MRSA Cefazolin R Clindamycin S Erythromycin R Oxacillin R Penicillin R Tetracycline S Trimeth/Sulfa S Vancomycin S Final Report Comment: Test performed at [facility]. 03/07/2008 Corrected CSF Culture Source...............: Cerebrospinal Fluid RLB Gram Stain...........: Gram smear performed at [facility]. Culture: Final Report: No growth after 3 days. Final Report Comment: Test performed at [facility]. 03/03/2008 Corrected CSF Culture Source...............: Cerebrospinal Fluid RLB Gram Stain...........: Gram smear performed at [facility]. Culture: Final Report: No growth after 3 days. Final Report Comment: Test performed at [facility]. 03/03/2008 Corrected Wound Culture Source...............: Skin Abscess RLB Gram Stain...........: Rare Squamous epithelial cells Rare PMN's Rare Gram positive cocci Culture: 1+ Methicillin resistant Staphylococcus aureus Final ID MRSA Cefazolin R Clindamycin S Erythromycin R Oxacillin R Penicillin R Tetracycline S Trimeth/Sulfa S Vancomycin S Final Report Resulted: 03/05/08 RLB ([facility]) [facility] [address] [place] [address] Comment: Test performed at [facility]. CULTURE RESULT Date Value Ref Range Status 07/11/2018 Final Staphylococcus epidermidis (A) 05/14/2018 Final Final Report:No Bacteria or Yeast isolated at 5 days. 05/14/2018 Final Final Report:No Bacteria or Yeast isolated at 5 days. 12/05/2017 Final Staphylococcus aureus (A) 12/05/2017 Final Staphylococcus aureus (A) 12/05/2017 Final Staphylococcus aureus (A) 12/05/2017 Final Staphylococcus aureus (A) 12/03/2017 Final Final Report:No Bacteria or Yeast isolated at 5 days. Current Medications: acetaminophen (TYLENOL) tablet 325-650 mg, 325-650 mg, oral, Q6H PRN OR acetaminophen ( TYLENOL) tablet 325-650 mg, 325-650 mg, feeding tube, Q6H PRN OR acetaminophen (TYLENOL) suppository 325-650 mg, 325-650 mg, rectal, Q6H PRN artificial tears (dextran 70-hypromellose) (NATURE'S TEARS) 0.1-0.3 % ophthalmic drops 1 dr op, 1 drop, Both Eyes, PRN ascorbic acid (vitamin C) tablet 500 mg, 500 mg, oral, BID OR ascorbic acid (vitamin C) tablet 500 mg, 500 mg, feeding tube, BID atorvastatin (LIPITOR) tablet 80 mg, 80 mg, oral, DAILY bisacodyl (DULCOLAX) suppository 10 mg, 10 mg, rectal, DAILY PRN dextrose 50 % in water IV 25 mL, 25 mL, intravenous, PRN glucagon (GLUCAGEN) injection 1 mg, 1 mg, intramuscular, PRN glucose chewable tablet 16 g, 16 g, oral, PRN heparin 25,000 Units in NaCl 0.9 % (NS) 250 mL (100 Units/mL) IV infusion, 1-2,500 Units/hr , intravenous, CONTINUOUS hydrALAZINE (APRESOLINE) injection 10-20 mg, 10-20 mg, intravenous, Q10MIN PRN insulin lispro (HUMALOG) injection 1-16 Units, 1-16 Units, subcutaneous, QID ipratropium-albuterol (DUO-NEB) nebulizer solution 3 mL, 3 mL, inhalation, Q4H PRN labetalol (TRANDATE) IV injection 10-20 mg, 10-20 mg, intravenous, Q10MIN PRN metoclopramide HCl (REGLAN) injection 5-10 mg, 5-10 mg, intravenous, Q4H PRN metoprolol succinate (TOPROL-XL) tablet 50 mg, 50 mg, oral, DAILY [COMPLETED] ondansetron (ZOFRAN) injection 4 mg, 4 mg, intravenous, Q12H FOLLOWED BY on dansetron (ZOFRAN) injection 4 mg, 4 mg, intravenous, Q12H PRN polyethylene glycol (MIRALAX) packet 17 g, 17 g, oral, DAILY polyethylene glycol (MIRALAX) packet 34 g, 34 g, oral, TID PRN senna-docusate (SENOKOT S) 8.6-50 mg 2 tablet, 2 tablet, oral, BID spironolactone (ALDACTONE) tablet 25 mg, 25 mg, oral, DAILY zinc sulfate (ORAZINC) tablet 25 mg elemental, 110 mg total salt, oral, DAILY OR zinc s ulfate (ORAZINC) tablet 25 mg elemental, 110 mg total salt, feeding tube, DAILY ASSESSMENT: Gloria Adhikari is a 68 y.o. year old female with complicated history following castillo rgical management of ruptured anterior communicating artery aneurysm and hydrocephalus which occurred in 2007, who has required multiple surgical procedures for wound infection, explan t and re-implantation of cranioplasty, and eventual plastic surgery consultation. Most rece ntly, she underwent synthes cranioplasty (05/08/18) with rotational flap performed by Dr Ata White. She represented with wound dehiscence managed with over sewing of the wound by ENT (-05/17). Unfortunately, Ms Adhikari again presented for medical attention after her son not iced recurrent skin opening with cranioplasty exposure. She was admitted to neurosurgery rust on 07/10 and underwent explant of her cranioplasty and wound closure by ENT the followin . She was discharged to home on 07/13. Ms Adhikari's surgical culture was notable for g rowth of staph epidermidis. ID recommended no treatment at that time. She was seen in clinic on 07/28 at which time her wound had dehisced after sutures removed in ENT-plastics clinic. A s such, surgical plan for free flap was made. Ms Adhikari was admitted to [facility] on 08/03 for r ight mesh cranioplasty, wound debridement and lat dorsi flap in coordination with Jose Diego and Christopher. PLAN: Wound care per primary team. Encourage mobilization, acute care rehab. OK for DVT prophylaxis from NSG perspective, if felt warranted. Smoking cessation. Neurosurgery to continue to follow. ANSON MULLINS [facility] [address] [place] [address] Valente Valdovinos MD,DDS - 08/07/2018 6:04 AM PDTFormatting of this note might be different from the alondraa l. Head and Neck Surgery Inpatient Daily Progress Note: Primary Care Provider: Mary Vazquez PA-C Admission Date: 08/03/2018 GLORIA ADHIKARI, [id number] Hospital Day #4 PROCEDURES: Dr. White (ENT) Free autologous flap from right latissimus dorsi to right scalp defect SUBJECTIVE INTERVAL EVENTS: Afebrile, hemodynamically stable, good UOP Transfused for HCT <24 with history of ACS Reported oozing from elvin removal site APTT 71.8 OBJECTIVE Last 24 hour min/max Temp: 36.7 C (98.1 F) Temp Min: 36.7 C (98.1 F) Max: 37.1 C (98.8 F) Pulse: 81 Pulse Min: 75 Max: 100 Resp: 20 Resp Min: 16 Max: 20 BP: 122/71 BP Min: 106/75 Max: 122/71 SpO2: 97 % SpO2 Min: 89 % Max: 98 % Body mass index is 22.58 kg/m. Intake/Output Summary (Last 24 hours) at 08/07/2018 0732 Last data filed at 08/07/2018 0723 Gross per 24 hour Intake 890 ml Output 225 ml Net 665 ml PHYSICAL EXAM: General: Alert, comfortable, NAD Flap (scalp): warm, soft, pen doppler signal present. Xeroform in place. Muscle exposed, bl eeding appropriately. Previous elvin site with some persistent oozing covered with gauze. Right back Donor site: Dressing intact. Lazara serosang. LABS: Recent Labs 08/05/1813908/06/18 0406 08/06/18 1830 08/06/18 2246 08/07/18 0615 NA 141 -- 141 -- -- -- 142 K 4.0 -- 4.1 -- -- -- 4.0 CL 110* -- 110* -- -- -- 113* BICARB 25 -- 26 -- -- -- 25 BUN 17 -- 11 -- -- -- 11 CR 0.75 -- 0.67 -- -- -- 0.71 GLU 99 < > 92 < > 127* 130* 101* CA 7.5* -- 7.6* -- -- -- 7.7* ALB 2.4* -- 2.1* -- -- -- 2.3* < > = values in this interval not displayed. No results for input(s): MG in the last 168 hours. Invalid input(s): PHOS, CA Recent Labs 08/05/18 01408/06/18 0406 08/07/18 0615 WBC 11.23* 9.10 9.03 RBC 2.69* 2.35* 2.88* HB 8.4* 7.5* 9.1* HCT 25.0* 22.5* 27.2* PLT 144* 131* 144* Recent Labs 08/04/18 1625 08/07/18 0615 APTT 73.6* < > 58.6* FIBRINOGEN 355 -- -- < > = values in this interval not displayed. CBG's Recent Labs 08/05/18 0140 08/05/18 0955 08/05/18 1934 08/05/18 2305 08/06/18 0406 08/06/18 0754 08/06/18 1329 08/06/18 1830 08/06/18 2246 08/07/18 0615 GLU 99 102* 125* 143* 92 115* 114* 127* 130* 101* ASSESSMENT/PLAN: Gloria Adhikari is a 68 y.o. female with history CAD, NSTEMI (12/28/2014) s/p bare metal stent placement x 2 on ASA, HTN, tobacco dependence and COPD. She underwent multiple w ound dehiscence and cranioplasty infections following a right pterional craniotomy for clipp ing of ruptured aneurysm in 2007. She recently underwent on 08/03/18 s/p right mesh craniopl asty, bilateral latissimus dorsi free flap, and split thickness skin graft from back. She is recovering within expectations post-operative day 4. Continue Flap care - Change to q4h flap check until POD5 - Continue LAZARA drain - Continue reg diet - Continue hep gtt with goal of 50-70 Dispo: Continue acute rosas care Valente Presley DDS, MD oMel Krueger MD - 08/06/2018 2:00 PM PDT INPATIENT PROGRESS NOTE Hospital Day:3 Attending Physician: Ata White MD Interval Hx: Transferred out of ICU yesterday, ENT now primary. Reports bleeding from neck on elvin removal yesterday. Received 1U PRBCs this AM. Physical Exam: Last Vitals: BP 112/47 | Pulse 75 | Temp 37.1 C (98.8 F) (Oral) | Resp 18 | Ht 1.49 9 m (4' 11") | Wt 50.7 kg (111 lb 12.4 oz) | SpO2 98% | BMI 22.58 kg/m | BSA 1.45 m O2 Delivery Device: None (room air) (08/06/18 1111) 24 Hour Vital Min/Max: Systolic (24hrs), Av , Min:84 , Max:117 Diastolic (24hrs), Av, Min:40, Max:75Pulse Min: 75 Max: 100 Temp Min: 36.7 C (98.1 F) Max: 37.2 C (99 F) Resp Min: 13 Max: 24 SpO2 Min: 85 % Max: 98 % Intake/Output Summary (Last 24 hours) at 08/06/2018 1400 Last data filed at 08/06/2018 0840 Gross per 24 hour Intake 468 ml Output 160 ml Net 308 ml Physical Exam: Awake, alert, oriented to self, time, place, situation Following commands briskly Speech fluent PERRL EOMI Intact and symmetric facial movement bilaterally Right facial and submandibular firm swelling, elvin drain in place Shoulder shrug equal bilaterally Tongue midline No pronator drift RUE: 06/25 D/B/T/HG LUE: 06/25 D/B/T/HG RLE: 06/25 HF/KE/DF/PF LLE: 06/25 HF/KE/DF/PF SILT Flap incisions c/d/i with minimal oozing, exposed muscle appears soft, bleeding appropriate ly Labs: CBC with diff last 72 hours (or 3 results) Recent Labs 08/04/18 1854 08/05/18 0140 08/06/18 0406 WBC 12.81* 11.23* 9.10 HB 9.1* 8.4* 7.5* HCT 27.2* 25.0* 22.5* PLT 157 144* 131* Chemistries: Last 72 Hours (or 3 results): Recent Labs 08/03/18 2343 08/05/18 0140 08/06/18 0406 08/06/18 0754 08/06/18 1329 NA 141 -- 141 -- 141 -- -- K 4.4 -- 4.0 -- 4.1 -- -- CL 110* -- 110* -- 110* -- -- BICARB 23 -- 25 -- 26 -- -- BUN 19 -- 17 -- 11 -- -- EGFRAFRICAN >60 -- >60 -- >60 -- -- CR 0.66 -- 0.75 -- 0.67 -- -- GLU 136* < > 99 < > 92 115* 114* CA 8.0* -- 7.5* -- 7.6* -- -- PO4 -- -- 2.7 -- 3.2 -- -- < > = values in this interval not displayed. Current Medications: acetaminophen (TYLENOL) tablet 325-650 mg, 325-650 mg, oral, Q6H PRN OR acetaminophen ( TYLENOL) tablet 325-650 mg, 325-650 mg, feeding tube, Q6H PRN OR acetaminophen (TYLENOL) suppository 325-650 mg, 325-650 mg, rectal, Q6H PRN artificial tears (dextran 70-hypromellose) (NATURE'S TEARS) 0.1-0.3 % ophthalmic drops 1 dr op, 1 drop, Both Eyes, PRN ascorbic acid (vitamin C) tablet 500 mg, 500 mg, oral, BID OR ascorbic acid (vitamin C) tablet 500 mg, 500 mg, feeding tube, BID atorvastatin (LIPITOR) tablet 80 mg, 80 mg, oral, DAILY bisacodyl (DULCOLAX) suppository 10 mg, 10 mg, rectal, DAILY PRN dextrose 5%-NaCl 0.45% IV infusion, 5-400 mL, intravenous, PRN dextrose 50 % in water IV 15-150 mL, 15-150 mL, intravenous, PRN glucagon (GLUCAGEN) injection 1 mg, 1 mg, intramuscular, PRN glucose chewable tablet 4-40 g, 4-40 g, oral, PRN heparin 25,000 Units in NaCl 0.9 % (NS) 250 mL (100 Units/mL) IV infusion, 1-2,500 Units/hr , intravenous, CONTINUOUS hydrALAZINE (APRESOLINE) injection 10-20 mg, 10-20 mg, intravenous, Q10MIN PRN insulin lispro (HUMALOG) injection 1-16 Units, 1-16 Units, subcutaneous, QID insulin regular bolus from continuous infusion 1-50 Units, 1-50 Units, intravenous, NEED ED (BOLUS) ipratropium-albuterol (DUO-NEB) nebulizer solution 3 mL, 3 mL, inhalation, Q4H PRN labetalol (TRANDATE) IV injection 10-20 mg, 10-20 mg, intravenous, Q10MIN PRN metoclopramide HCl (REGLAN) injection 5-10 mg, 5-10 mg, intravenous, Q4H PRN metoprolol succinate (TOPROL-XL) tablet 50 mg, 50 mg, oral, DAILY [COMPLETED] ondansetron (ZOFRAN) injection 4 mg, 4 mg, intravenous, Q12H FOLLOWED BY on dansetron (ZOFRAN) injection 4 mg, 4 mg, intravenous, Q12H PRN polyethylene glycol (MIRALAX) packet 17 g, 17 g, oral, DAILY polyethylene glycol (MIRALAX) packet 34 g, 34 g, oral, TID PRN senna-docusate (SENOKOT S) 8.6-50 mg 2 tablet, 2 tablet, oral, BID spironolactone (ALDACTONE) tablet 25 mg, 25 mg, oral, DAILY zinc sulfate (ORAZINC) tablet 25 mg elemental, 110 mg total salt, oral, DAILY OR zinc s ulfate (ORAZINC) tablet 25 mg elemental, 110 mg total salt, feeding tube, DAILY ASSESSMENT: Gloria Adhikari is a 68 y.o. female HD#2 with CAD s/p [place], HTN, GERD, tobacco use, and a history of multiple wound and cranioplasty infections following a Right pterional cran iotomy for clipping of a ruptured AComm aneurysm in 2007. She was recently readmitted on 06/22 with a wound dehiscence and had a PEEK cranioplasty explanted. She has now returned for el ective titanium mesh cranioplasty with ENT latissimus dorsi free flap coverage on 08/03, from which she is recovering well. Received a second unit PRBCs today for Hct below threshold fo r patient with history of ACS. PLAN: - continue Q4Hr neuro checks - remainder of care per ENT - Neurosurgery will continue to follow along Mel Shelton MD Resident Physician, PGY1 Service Pager: [phone] Associated attestation - Casey Hewitt MD - 08/07/2018 2:29 PM PDTI have seen and examine d the patient. I agree with the resident's documentation and have documented any additions or exceptions. MD Elizabeth Capps Haruka, MD - 08/06/2018 8:01 AM PDTFormatting of this note might be different from t he original. Head and Neck Surgery Inpatient Daily Progress Note: Primary Care Provider: Mary Vazquez PA-C Admission Date: 08/03/2018 GLORIA ADHIKARI, [id number] Hospital Day #3 PROCEDURES: Dr. White (ENT) Free autologous flap from right latissimus dorsi to right scalp defect SUBJECTIVE INTERVAL EVENTS: No acute events Pain controlled hct below transfusion threshold for pt with hx of ACS OBJECTIVE Last 24 hour min/max Temp: 36.9 C (98.4 F) Temp Min: 36.9 C (98.4 F) Max: 37.2 C (99 F) Pulse: 90 Pulse Min: 88 Max: 100 Resp: 16 Resp Min: 13 Max: 26 BP: 105/40 BP Min: 84/47 Max: 105/40 SpO2: 89 % SpO2 Min: 83 % Max: 94 % Body mass index is 22.58 kg/m. Intake/Output Summary (Last 24 hours) at 08/06/2018 0804 Last data filed at 08/06/2018 0408 Gross per 24 hour Intake 554 ml Output 1440 ml Net -886 ml PHYSICAL EXAM: General: Alert, comfortable, NAD Flap (scalp): warm, soft, signal present. Xeroform in place. Muscle exposed, bleeding appro priately. Small 1cm punctate area with granulation tissue. Elvin on neck with dried crust surrounding- removed this AM. Right back Donor site: Dressing intact. Lazara serosang. LABS: Recent Labs 08/03/18 2343 08/05/18 0140 08/05/18 2305 08/06/18 0406 08/06/18 0754 NA 141 -- 141 -- -- 141 -- K 4.4 -- 4.0 -- -- 4.1 -- CL 110* -- 110* -- -- 110* -- BICARB 23 -- 25 -- -- 26 -- BUN 19 -- 17 -- -- 11 -- CR 0.66 -- 0.75 -- -- 0.67 -- GLU 136* < > 99 < > 143* 92 115* CA 8.0* -- 7.5* -- -- 7.6* -- ALB -- -- 2.4* -- -- 2.1* -- < > = values in this interval not displayed. No results for input(s): MG in the last 168 hours. Invalid input(s): PHOS, CA Recent Labs 08/04/18 1854 08/05/18 0140 08/06/18 0406 WBC 12.81* 11.23* 9.10 RBC 2.88* 2.69* 2.35* HB 9.1* 8.4* 7.5* HCT 27.2* 25.0* 22.5* PLT 157 144* 131* Recent Labs 08/04/18 1625 08/06/18 0406 APTT 73.6* < > 79.0* FIBRINOGEN 355 -- -- < > = values in this interval not displayed. CBG's Recent Labs 08/04/18 0849 08/04/18 1211 08/04/18 1750 08/04/18 2134 08/05/18 0140 08/05/18 0955 08/05/18 1934 08/05/18 2305 08/06/18 0406 08/06/18 0754 GLU 128* 143* 140* 144* 99 102* 125* 143* 92 115* ASSESSMENT/PLAN: Gloria Adhikari is a 68 y.o. female with history CAD, NSTEMI (12/28/2014) s/p bare metal stent placement x 2 on ASA, HTN, tobacco dependence and COPD. She underwent multiple w ound dehiscence and cranioplasty infections following a right pterional craniotomy for clipp ing of ruptured aneurysm in 2007. She recently underwent on 08/03/18 s/p right mesh craniopl asty, bilateral latissimus dorsi free flap, and split thickness skin graft from back. Continue Flap care - Change to q4h flap check until POD5 - Continue LAZARA drain - Elvin removed this morning - DC Vanc/ancef prophylaxis - Continue reg diet - Transfuse 1u PRBC today for hx of ACS and HCT 22 - Continue hep gtt with goal of 50-70 Dispo: Continue rosas care Sabiha Johnson Gen Surg R4 [facility] resident application development intern Sabiha Wu M D - 08/05/2018 6:37 AM PDT Head and Neck Surgery Inpatient Daily Progress Note: Primary Care Provider: Mary Vazquez PA-C Admission Date: 08/03/2018 GLORIA ADHIKARI, [id number] Hospital Day #2 PROCEDURES: Dr. White (ENT) Free autologous flap from right latissimus dorsi to right scalp defect SUBJECTIVE INTERVAL EVENTS: No issues with flap overnight On Heparin gtt for flap perfusion Pain over incision but tolerable. OBJECTIVE Last 24 hour min/max Temp: 37.1 C (98.8 F) Temp Min: 37.1 C (98.7 F) Max: 37.7 C (99.9 F) Pulse: 90 Pulse Min: 87 Max: 110 Resp: 26 Resp Min: 11 Max: 26 BP: 104/53 BP Min: 104/53 Max: 105/57 SpO2: 94 % SpO2 Min: 81 % Max: 96 % Body mass index is 22.58 kg/m. Intake/Output Summary (Last 24 hours) at 08/05/2018 0754 Last data filed at 08/05/2018 0700 Gross per 24 hour Intake 2464.73 ml Output 735 ml Net 1729.73 ml PHYSICAL EXAM: General: Alert, comfortable, NAD Flap (scalp): warm, soft, signal present. Xeroform in place. Muscle exposed, bleeding appro priately. Small area over forehead with dressing in place and strikethrough. [place] on neck with dried crust surrounding. Right back Donor site: Dressing intact. LAZARA x 2 drains on bulb suction (115 ml and 135ml SS) LABS: Recent Labs 08/03/18 2343 08/04/18 1750 08/04/18 2134 08/05/18 0140 NA 141 -- -- -- 141 K 4.4 -- -- -- 4.0 CL 110* -- -- -- 110* BICARB 23 -- -- -- 25 BUN 19 -- -- -- 17 CR 0.66 -- -- -- 0.75 GLU 136* < > 140* 144* 99 CA 8.0* -- -- -- 7.5* ALB -- -- -- -- 2.4* < > = values in this interval not displayed. No results for input(s): MG in the last 168 hours. Invalid input(s): PHOS, CA Recent Labs 08/04/18 1515 08/04/18 1854 08/05/18 0140 WBC 11.65* 12.81* 11.23* RBC 2.36* 2.88* 2.69* HB 7.5* 9.1* 8.4* HCT 22.3* 27.2* 25.0* PLT 193 157 144* Recent Labs 08/04/18 1625 08/05/18 0640 APTT 73.6* < > 38.1* FIBRINOGEN 355 -- -- < > = values in this interval not displayed. CBG's Recent Labs 08/04/18 0037 08/04/18 0139 08/04/18 0243 08/04/18 0442 08/04/18 0644 08/04/18 0849 08/04/18 1211 08/04/18 1750 08/04/18 2134 08/05/18 0140 GLU 139* 126* 138* 135* 122* 128* 143* 140* 144* 99 ASSESSMENT/PLAN: Gloria Adhikari is a 68 y.o. female with history CAD, NSTEMI (12/28/2014) s/p bare metal stent placement x 2 on ASA, HTN, tobacco dependence and COPD. She underwent multiple w ound dehiscence and cranioplasty infections following a right pterional craniotomy for clipp ing of ruptured aneurysm in 2007. She recently underwent on 08/03/18 s/p right mesh craniopl asty, bilateral latissimus dorsi free flap, and split thickness skin graft from back. Continue Flap care - Change to q4h flap check until POD5 - Continue LAZARA drain and elvin - Vanc/ancef prophylaxis per neurosurg - Continue reg diet - Transfuse for Hct < 21 - Continue hep gtt with goal of 50-70 Dispo: OK for transfer Sabiha Johnson Gen Surg R4 [facility] resident application development intern Israel Oden ACNP - 08/05/2018 5:41 AM PDT . Neuroscience Intensive Care Unit Team Progress Note NSICU ASSIGNED #[id number] ICU Admission Reason Most Recent Value ICU Admission reason neuro monitoring following mesh cranioplasty filed at 08/03/2018 120 3 Documentation Date Row Name 08/03/18 1203 Day of Procedure 08/03/18 Neurosurgical Procedures Neurosurgical Neurosurgical Procedures Right mesh cranioplasty, bilateral latissimus dorsi free fla p, STSG from back Admission dx: Dehiscence of operative wound, sequela [T81.31XS] 2 Days in ICU 2 Days in Hospital Abbreviated HPI / Daily Assessment Gloria Adhikari is a 68 year old female with CAD, NSTEMI (12/28/2014) s/p bare met al stent placement x 2 on ASA, HTN, tobacco dependence and COPD. In September 2007 she had a SAH from ACOM aneurysm rupture, s/p clipping. This hospital course was complicated by hydrocephalus s/p VPS placement March 2008 - has since been removed d ue to infection but has tubing left in place. In December of 2014 she was noted to have a ri ght crani screw exposed with significant sunken cranial defect but due to her recent NSTEMI, stent placement, and dual antiplatelet therapy she was deferred for surgery. In October of 2015 she had an uncomplicated right synthetic cranioplasty. In November she was noted right sided wound dehiscence and epidural MSSA wound infection for which s he underwent explant of right frontal VPS and right cranioplasty. She was discharged home wi th a PICC and received IV ceftriaxone for 6 weeks (12/05/17 - 01/16/18). Prior to stopping a ntibiotics a CT of the head was negative for abscess and therefore the antibiotics were stop ped as scheduled on 01/16/2018. She underwent an elective repeat synthetic cranioplasty with neurosurgery on 05/09/2018 with rotational scalp flap with the ENT doctors. She was discharged home the following [facility] he presented on 05/14/2018 with enlarging right [...] so were the blood cultures on 05/14/2018. She was not placed on antibiotics during this admission. She was [...] She was then advised to present to [facility] ED. The patient had denied any fever, chills and other systemic infectious symptoms however upon ED evaluation noted some erythema around the surrounding area but no purulence. ENT was consulted and noted a 2 x 3 cm area of expos ed synthetic cranioplasty and she underwent explant of the right synthes custom cranioplasty and wound revision on 07/11/18. Intra-op cultures grew staph epidermidis although on evaluat ion by infectious disease, it was felt this could be a contaminant so no antibiotics were st arted. Today she is admitted to the NSICU on 08/03/18 s/p right mesh cranioplasty, bilateral latiss imus dorsi free flap, and split thickness skin graft from back. 24 Hour events Transfer status 1u PRBC given yesterday for H&H 09/11, this AM 8.4/25 Continues on heparin infusion Active Diagnosis with Assessment & Plan Priority Class POA Head/Neck Skull defect Yes Overview In September of 2007 she had HH4F3 [...] and received IV ceftriaxone for 6 weeks. Cardiovascular HTN (hypertension) Yes Overview ICD10 Current Assessment & Plan -SBP goal < 160 -continue home metoprolol ER 50 mg daily, spironolactone 25 mg daily -IV hydralazine/labetalol prn Ischemic cardiomyopathy Yes Overview TTE on 05/09/2017 EF 35-40% 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 with several focal areas of dyskinesis RV normal size and function Mild Aortic Regurgitation Current Assessment & Plan -CAD, NSTEMI (12/2014) s/p mid LAD stent -holding home ASA 81mg daily perioperatively - Metop XL 50 mg daily -continue Atorvastatin 80mg daily -ADAT Respiratory/Chest Chronic obstructive pulmonary disease (HCC) Yes Overview ICD10 Current Assessment & Plan -continue home inhalers -on 3L O2 at night at baseline - will provide 02 PRN -SpO2 goal 88-96% Other History of non-ST elevation myocardial infarction (NSTEMI) Yes Overview Overview: Cath 12/28/14: 100% LAD - stented with bare metal due to history of cerebral aneurysm. Norm al LM; normal LCX; 20-30% RCA. Elevated EDP. Echo.12/28/14. LVEF.54% Continuous tobacco abuse Yes Current Assessment & Plan -nicotine replacement prn Wound dehiscence Unknown Current Assessment & Plan -noted to have small wound dehiscence on 07/09/18, no pre-op antibiotics started. Right sy nthes cranioplasty explanted 07/11/18, intra-op cultures grew staph epidermidis although on e valuation by infectious disease, it was felt this could be a contaminant so no antibiotics w ere started. -admit to NSICU, stable for transfer to [facility] under ENT -s/p right mesh cranioplasty, bilateral latissimus dorsi free flap, and split thickness ski n graft from back on 08/03/18 -- uncomplicated -post op CTH with expected post surgical changes -periop Abx per NSG: continue vanc and ancef perioperatively per ID recommendations and unt il drains are out, 95cc in lat LAZARA, 90cc output in medial LAZARA -Urgent CTH for any neurological decline -ICU goals: SBP < 160, normonatremia, euvolemia -Hep gtt stroke protocol, mgmt per Code Status Code Status Full Code The Advanced Care Note for this patient can be found under the notes tab in chart review. Constitutional: She appears well-developed and well-nourished HENT: Muscle flat viable. Moist. Cardiovascular: normal rate, regular rhythm and normal heart sounds Pulmonary: effort normal and breath sounds normal. Abdominal: Abdomen is soft. There is no tenderness Skin: Skin is warm and dry. vitals reviewed. Physical exam Comments AAOx self, place, time; Speech fluent, answers appropriately PERRL, EOMI V1-V3 symmetric, VFF Face symmetric, TML No pronator drift, no FTN dysmetria 5/5 throughout No longer c/o decreased right foot sensation. SILT . NSICU treatment team members Provider Role Specialty Ipt Ent Head Neck Treatment Team Otolaryngology Ipt Critical Care Nsicu #[id number] Treatment Team Ipt Neurosurgery #[id number] Treatment Team Neurological Surgery Patient Lines/Drains/Airways Status Active Lines, Drains and Airways Name: Placement date: Placement time: Site: Days: Drain LAZARA Right Lateral flank 1 08/03/18 1527 flank 1 Drain LAZARA Right Medial flank 2 08/03/18 1527 flank 1 Drain Elvin Right head 3 08/03/18 1914 head 1 Peripheral IV Left Wrist 08/03/18 Wrist 2 Peripheral IV Right Ankle 22 g 08/03/18 2330 Ankle 1 Wound Midline coccyx Pressure ulcer 12/03/17 2200 coccyx 244 Incision Right head 07/11/18 1337 24 Incision Right neck 08/03/18 1245 1 Incision Right flank 08/03/18 1242 1 Flap Right face 08/03/18 face 2 Arterial Line Standard Left Radial 20g 08/03/18 1152 Radial 1 Quality section A-Line necessity reviewed: Plan to DC today FAST HUG Feeding: reg Analgesia: APAP Sedation: none Thromboprophylaxis: SCDs (on heparin gtt) Head of Bed: up ad cadence Ulcer Prophylaxis: n/a Glycemic Control: SSI I have spent a total of 40 Minutes independently in the direct care and management of th is patient.Time is independent of any time spent teaching or performing any separately billa ble procedures. I reviewed the documented findings, all data and the recent imaging availabl e. Date of Service: 08/05/2018 KOKO JACKSON EPIC DEPARTMENT: ANE ICU NEURO Place of Service:- Inpatient CSN: [id number] Suggested Modifier: None Suggested CPT: TO PROJECT MANAGEMENT IT SPECIALIST Author:KOKO JACKSON [address] [id number] signed by KOKO Jackson at 08/05/2018 10:13 AM Desire Mao MD - 08/05/2018 3:29 AM PDTOtolaryngology / Head and Neck Surgery Flap Check Date: 08/05/2018 Hospital Day:2 Author; Desire Berman MD Attending Physician: Ata White MD Subjective/Interval History: No interval flap concerns Last Vitals: BP 104/53 (BP Location: Right upper arm, Patient Position: Lying on back) | Pulse 92 | Te mp 37.1 C (98.8 F) (Oral) | Resp 24 | Ht 1.499 m (4' 11") | Wt 50.7 kg (111 lb 12.4 o z) | SpO2 (!) 88% | BMI 22.58 kg/m | BSA 1.45 m Physical Exam: NAD, alert Breathing comfortably Neck: without hematoma Flap: is visible at the right scalp. Exposed muscule is warm, pink, soft. Skin graft intact and viable. Xeroform over incisions Doppler: pencil doppler with good Signal over right episcopal Incisions: c/d/i, drains with serosanguinous fluid. Soft edema of the right neck Donor site: Right lat incision intact, LAZARA drains holding suction with ss output Assessment and Plan: Gloria Adhikari is a 68 y.o. female who is POD #2 s/p latiss imus dorsi free flap for coverage of a cranioplasty. Doing well. Flap viable. Continue flap checks Continue current care Desire Berman MD Otolaryngology-Head & Neck Surgery PGY-2 [facility] ENT application development intern pager [phone] Vickie Haines MD,MPH - 12:24 AM PDT NEUROSURGERY PROGRESS NOTE Attending Physician: Magnolia Diego MD INTERVAL EVENTS: - Transfused 1U PRBC with appropriate H&H response - [facility] status, no acute events OBJECTIVE: Last 24 hour min/max Temp: 37.4 C (99.3 F) Temp Min: 37.1 C (98.7 F) Max: 37.7 C (99.9 F) Pulse: 92 Pulse Min: 86 Max: 110 Resp: 24 Resp Min: 11 Max: 26 BP: 104/53 BP Min: 104/53 Max: 105/57 SpO2: 88 % SpO2 Min: 81 % Max: 98 % Body mass index is 22.58 kg/m. I/O/Drains Current Shift I/O/Drains Last 3 Completed Shifts 08/04 2300 - 08/05 0700 In: 88 [I.V.:18] Out: - 08/03 2300 - 08/04 2300 In: 2503.3 [P.O.:940; I.V.:713.3] Out: 1015 [Urine:700; Drains:315] No data recorded No data recorded Labs: Complete Blood Count/Coags Recent Labs 08/04/18 0145 08/04/18 1515 08/04/18 1854 WBC 15.26* 11.65* 12.81* HB 10.3* 7.5* 9.1* HCT 31.4* 22.3* 27.2* PLT 202 193 157 Invalid input(s): INR CSF Results No results for input(s): WBCCSF, RBCCSF, GLUCOSECSF, PROTEINCSF in the last 8640 hours. Chemistry Recent Labs 12/07/17 1114 05/08/18 1200 05/09/18 0005 05/15/18 0236 07/10/18 1747 08/03/18 2343 08/04/18 1211 08/04/18 1750 08/04/18 2134 NA 137 < > 137 137 < > 138 137 -- 141 -- -- -- -- K 5.0 < > 3.9 4.0 < > 4.1 4.2 -- 4.4 -- -- -- -- CL 104 < > 111* 109* < > 105 105 -- 110* -- -- -- -- BICARB 22 < > 20* 21 < > 25 28 -- 23 -- -- -- -- BUN 17 < > 19 13 < > 15 16 -- 19 -- -- -- -- CR 0.67 < > 0.79 0.68 < > 0.78 0.88 -- 0.66 -- -- -- -- GLU 92 < > 120* 105* < > 125* 90 < > 136* < > 143* 140* 144* CA 8.4* < > 7.4* 7.8* < > 8.5* 8.7 -- 8.0* -- -- -- -- MG -- -- -- 1.7 -- -- -- -- -- -- -- -- -- PO4 2.4 -- 4.4 2.7 -- -- -- -- -- -- -- -- -- < > = values in this interval not displayed. Culture Results CULTURE RESULT (no units) Date Value 05/13/2008 CSF Culture Source...............: Cerebrospinal Fluid RLB Gram Stain...........: Gram smear performed at [facility]. Culture: Final Report: No growth after 3 days. Final Report CULTURE RESULT (no units) Date Value 07/11/2018 Staphylococcus epidermidis (A) 05/14/2018 Final Report:No Bacteria or Yeast isolated at 5 days. 05/14/2018 Final Report:No Bacteria or Yeast isolated at 5 days. Lab Results Component Value Date APTT 73.6 (H) 08/04/2018 FIBRINOGEN 355 08/04/2018 Lab Results Component Value Date RBCCSF 43 05/13/2008 WBCCSF 3 05/13/2008 PROTEINCSF Combined. 05/13/2008 PROTEINCSF 100 (H) 05/13/2008 GLUCOSECSF Combined. 05/13/2008 GLUCOSECSF 78 (H) 05/13/2008 CSFAPP Combined. 05/13/2008 CSFAPP Combined. 05/13/2008 CSFAPP Clear 05/13/2008 NEUROLOGICAL EXAM: Awake, alert, oriented to self, time, place, situation Following commands briskly Speech fluent PERRL EOMI Right face swollen, motor grossly symmetric Shoulder shrug equal bilaterally Tongue midline No pronator drift RUE: 5/5 D/B/T/HG LUE: 5/5 D/B/T/HG RLE: 06/25 HF/KE/DF/PF LLE: 06/25 HF/KE/DF/PF SILT Flap incisions covered with Xeroform, minimal oozing noted ASSESSMENT/PLAN: Gloria Adhikari is a 68 y.o. female HD#2 with CAD s/p AK, HTN, GERD, tobacco use, and a history of multiple wound and cranioplasty infections following a Right pterional cran iotomy for clipping of a ruptured AComm aneurysm in 2007. She was recently readmitted on 06/22 with a wound dehiscence and had a PEEK cranioplasty explanted. She has now returned for el ective titanium mesh cranioplasty with ENT latissimus dorsi free flap coverage on 08/03, from which she is recovering well. - Heparin gtt per ENT - Incisions/drains/flap per ENT - Vancomycin/Ancef prophylaxis - Transfer to [facility] with ENT service Please contact the Neurosurgery resident on-call pager [phone] with questions or concerns. Vickie Estrada M.D., M.P.H. R2 Resident Physician Neurological Surgery Pager: [phone] signed by Vickie Estrada MD,MPH at 08/05/2018 7:35 AM Claribel Mao MD - 08/04/2018 10:09 PM PDTOtolaryngology / Head and Neck Surgery Flap Check Date: 08/04/2018 Hospital Day:1 Author; Desire Berman MD Attending Physician: Ata White MD Subjective/Interval History: No interval flap concerns Transfused one unit this afternoon, post Hct 27 Last Vitals: BP 104/53 (BP Location: Right upper arm, Patient Position: Lying on back) | Pulse 101 | T emp 37.2 C (99 F) (Oral) | Resp 24 | Ht 1.499 m (4' 11") | Wt 50.7 kg (111 lb 12.4 oz ) | SpO2 90% | BMI 22.58 kg/m | BSA 1.45 m Physical Exam: NAD, alert Breathing comfortably Neck: without hematoma Flap: is visible at the right scalp. Exposed muscule is warm, pink, soft. Skin graft intact and viable Doppler: pencil doppler with good Signal over right episcopal Incisions: c/d/i, drains with serosanguinous fluid. Soft edema of the right neck Donor site: Right lat incision intact, LAZARA drains holding suction with ss output Assessment and Plan: Gloria Adhikari is a 68 y.o. female who is POD #2 s/p latiss imus dorsi free flap for coverage of a cranioplasty. Doing well. Flap viable. Continue flap checks Continue current care Desire Berman MD Otolaryngology-Head & Neck Surgery PGY-2 [facility] ENT application development intern pager [phone] Georgia Pinto MD - 07/22 9:05 AM PDT . Neuroscience Intensive Care Unit Attending Progress Note Attending Pager #[phone] ICU Admission Reason Most Recent Value ICU Admission reason neuro monitoring following mesh cranioplasty filed at 08/03/2018 120 3 Documentation Date Row Name 08/03/18 1203 Day of Procedure 08/03/18 Neurosurgical Procedures Neurosurgical Neurosurgical Procedures Right mesh cranioplasty, bilateral latissimus dorsi free fla p, STSG from back Hospital admission dx: Dehiscence of operative wound, sequela [T81.31XS] 1 Days in ICU 1 Days in Hospital Abbreviated HPI / Daily Assessment Gloria Adhikari is a 68 year old female with CAD, NSTEMI (12/28/2014) s/p bare met al stent placement x 2 on ASA, HTN, tobacco dependence and COPD. In September 2007 she had a SAH from ACOM aneurysm rupture, s/p clipping. This hospital course was complicated by hydrocephalus s/p VPS placement March 2008 - has since been removed d ue to infection but has tubing left in place. In December of 2014 she was noted to have a ri ght crani screw exposed with significant sunken cranial defect but due to her recent NSTEMI, stent placement, and dual antiplatelet therapy she was deferred for surgery. In October of 2015 she had an uncomplicated right synthetic cranioplasty. In November 018 she was noted right sided wound dehiscence and epidural MSSA wound infection for which s he underwent explant of right frontal VPS and right cranioplasty. She was discharged home wi th a PICC and received IV ceftriaxone for 6 weeks (12/05/17 - 01/16/18). Prior to stopping a ntibiotics a CT of the head was negative for abscess and therefore the antibiotics were stop ped as scheduled on 01/16/2018. She underwent an elective repeat synthetic cranioplasty with neurosurgery on 05/09/2018 with rotational scalp flap with the ENT doctors. She was discharged home the following [facility] he presented on 05/14/2018 with [...] so were the blood cultures on 05/14/2018. She was not placed on antibiotics during this admission. She was [...] She was then advised to present to [facility] ED. The patient had denied any fever, chills and other systemic infectious symptoms however upon ED evaluation noted some erythema around the surrounding area but no purulence. ENT was consulted and noted a 2 x 3 cm area of expos ed synthetic cranioplasty and she underwent explant of the right synthes custom cranioplasty and wound revision on 07/11/18. Intra-op cultures grew staph epidermidis although on evaluat ion by infectious disease, it was felt this could be a contaminant so no antibiotics were st arted. Today she is admitted to the NSICU on 08/03/18 s/p right mesh cranioplasty, bilateral latiss imus dorsi free flap, and split thickness skin graft from back. Medical Decision Making Continues on heparin gtt for free flap perfusion, management per ENT. Doppler signals are intact. Mobilize today, ADAT. Insulin gtt for glycemic control, hopefully will be able to tr ansition off today. abx per NSG. Code Status: FULL Psychiatric: Her behavior is normal. Physical exam Her GCS eye subscore is 4 (Eyes open spontaneously). GCS verbal subscore is 5 (Fully orient ed verbal response). GCS motor subscore is 6 (Obeys commands). GCS Score is 15. She is aler t She is oriented. Hospital Problems Priority POA Head/Neck Skull defect Yes Cardiovascular HTN (hypertension) Yes Ischemic cardiomyopathy Yes Respiratory/Chest Chronic obstructive pulmonary disease (HCC) Yes Other History of non-ST elevation myocardial infarction (NSTEMI) Yes Continuous tobacco abuse Yes Wound dehiscence Unknown NSICU treatment team members Provider Role Specialty Ipt Ent Head Neck Treatment Team Otolaryngology Ipt Critical Care Nsicu #[id number] Treatment Team Ipt Neurosurgery #[id number] Treatment Team Neurological Surgery Code Status Code Status Full Code The Advanced Care Note for this patient can be found under the notes tab in chart review. Quality section A-Line necessity reviewed: Rxts-ty-msxy blood pressure monitoring Benavides necessity reviewed: Plan to DC today I have spent a total of 12 minutes in the direct care and management of this patient indepe ndent of any time spent teaching or performing any separately billable procedures. I reviewe d the documented findings, all data and the recent imaging available. Seen with PA/DORON Del Real. Please see their note for details. I reviewed the documented findings, all data and the rec ent imaging available. Author:GEORGIA ARREOLA MD [address] [id number] signed by Georgia Arreola MD at 08/04/2018 9:09 AM Angie Randhawa PA-C - 08/04/2018 5:59 AM PDT DOS: 08/04/2018 Head and Neck Surgery Inpatient Daily Progress Note: Primary Care Provider: Mary Vazquez PA-C Admission Date: 08/03/2018 GLORIA ADHIKARI, [id number] Hospital Day #1 PROCEDURES: Dr. White (ENT) Free autologous flap from right latissimus dorsi to right scalp defect SUBJECTIVE INTERVAL EVENTS: No issues with flap this am On Heparin gtt for flap perfusion OBJECTIVE Last 24 hour min/max Temp: 37.3 C (99.1 F) Temp Min: 36.2 C (97.2 F) Max: 37.5 C (99.5 F) Pulse: 94 Pulse Min: 87 Max: 108 Resp: 18 Resp Min: 10 Max: 23 BP: 103/55 BP Min: 100/74 Max: 150/72 SpO2: 93 % SpO2 Min: 90 % Max: 98 % Body mass index is 21.37 kg/m. Intake/Output Summary (Last 24 hours) at 08/04/2018 0559 Last data filed at 08/04/2018 0500 Gross per 24 hour Intake 2418.56 ml Output 1430 ml Net 988.56 ml PHYSICAL EXAM: General: Alert, comfortable, NAD Flap (scalp): warm, soft, signal present. Xeroform in place Right back Donor site: Dressing intact. LAZARA x 2 drains on bulb suction (95 ml and 90 ml SS) LABS: Recent Labs 08/03/183 08/04/1813808/04/1824208/04/18 044 NA 141 -- -- -- -- K 4.4 -- -- -- -- CL 110* -- -- -- -- BICARB 23 -- -- -- -- BUN 19 -- -- -- -- CR 0.66 -- -- -- -- GLU 136* < > 126* 138* 135* CA 8.0* -- -- -- -- < > = values in this interval not displayed. No results for input(s): MG in the last 168 hours. Invalid input(s): PHOS, CA Recent Labs 08/03/18210908/03/18234208/04/18144 WBC 16.85* 16.18* 15.26* RBC 3.81* 3.50* 3.28* HB 11.9* 10.9* 10.3* HCT 37.2 33.9* 31.4* PLT 243 217 202 Recent Labs 08/04/18 014 APTT >200.0* CBG's Recent Labs 08/03/18 1043 08/03/18 1952 08/03/18210908/03/18 2232 08/03/18 2335 08/03/18 2343 08/04/18 0037 08/04/189 08/04/18 0243 08/04/18 0442 GLU 88 189* 228* 179* 184* 136* 139* 126* 138* 135* ASSESSMENT/PLAN: Gloria Adhikari is a 68 y.o. female with history CAD, NSTEMI (12/28/2014) s/p bare metal stent placement x 2 on ASA, HTN, tobacco dependence and COPD. She underwent multiple w ound dehiscence and cranioplasty infections following a right pterional craniotomy for clipp ing of ruptured aneurysm in 2007. She recently underwent on 08/03/18 s/p right mesh craniopl asty, bilateral latissimus dorsi free flap, and split thickness skin graft from back. -#Flap care -Continue Flap checks on clinical and pencil doppler examination q hr till POD#2 followed by q 4 hrs till POD#5 -ENT team to monitor Flap twice nightly till POD#2. -No face and neck circumferential ties -Continue all LAZARA drains for now -Doppler switch down on POD 5 -Elvin continue -Flap protocol for blood transfusion Hct <21. Hct 31.4 this am -Continue heparin gtt for 5 days, goal 50-70 Dispo: Okay to transfer to floor, if okay by NICU team. Transfer to ENT head and neck servi ce. ANGIE FRENCH PA-C Department of Otolaryngology/Head and Neck Surgery Mail Code [id number] [place] [address] Pager [phone] Consult/Night/Weekend Pager: [phone] Code Status: FULL ANGIE FRENCH PA-C Otolaryngology-Head and Neck Surgery [facility] Pager [phone] Israel Oden AC [employer] - 08/04/2018 5:50 AM PDT . Neuroscience Intensive Care Unit Team Progress Note NSICU ASSIGNED #[id number] ICU Admission Reason Most Recent Value ICU Admission reason neuro monitoring following mesh cranioplasty filed at 08/03/2018 120 3 Documentation Date Row Name 08/03/18 1203 Day of Procedure 08/03/18 Neurosurgical Procedures Neurosurgical Neurosurgical Procedures Right mesh cranioplasty, bilateral latissimus dorsi free fla p, STSG from back Admission dx: Dehiscence of operative wound, sequela [T81.31XS] 1 Days in ICU 1 Days in Hospital Abbreviated HPI / Daily Assessment Gloria Adhikari is a 68 year old female with CAD, NSTEMI (12/28/2014) s/p bare met al stent placement x 2 on ASA, HTN, tobacco dependence and COPD. In September 2007 she had a SAH from ACOM aneurysm rupture, s/p clipping. This hospital course was complicated by hydrocephalus s/p VPS placement March 2008 - has since been removed d ue to infection but has tubing left in place. In December of 2014 she was noted to have a ri ght crani screw exposed with significant sunken cranial defect but due to her recent NSTEMI, stent placement, and dual antiplatelet therapy she was deferred for surgery. In October of 2015 she had an uncomplicated right synthetic cranioplasty. In November she was noted right sided wound dehiscence and epidural MSSA wound infection for which s he underwent explant of right frontal VPS and right cranioplasty. She was discharged home wi th a PICC and received IV ceftriaxone for 6 weeks (12/05/17 - 01/16/18). Prior to stopping a ntibiotics a CT of the head was negative for abscess and therefore the antibiotics were stop ped as scheduled on 01/16/2018. She underwent an elective repeat synthetic cranioplasty with neurosurgery on 05/09/2018 with rotational scalp flap with the ENT doctors. She was discharged home the following day [facility] he presented on 05/14/2018 with [...] so were the blood cultures on 05/14/2018. She was not placed on antibiotics during this admission. She was [...] She was then advised to present to [facility] ED. The patient had denied any fever, chills and other systemic infectious symptoms however upon ED evaluation noted some erythema around the surrounding area but no purulence. ENT was consulted and noted a 2 x 3 cm area of expos ed synthetic cranioplasty and she underwent explant of the right synthes custom cranioplasty and wound revision on 07/11/18. Intra-op cultures grew staph epidermidis although on evaluat ion by infectious disease, it was felt this could be a contaminant so no antibiotics were st arted. Today she is admitted to the NSICU on 08/03/18 s/p right mesh cranioplasty, bilateral latiss imus dorsi free flap, and split thickness skin graft from back. 24 Hour events Admitted post op Heparin gtt initiated per plastics No other acute events Active Diagnosis with Assessment & Plan Priority Class POA Head/Neck Skull defect Yes Overview In September of 2007 she had HH4F3 [...] and received IV ceftriaxone for 6 weeks. Cardiovascular HTN (hypertension) Yes Overview ICD10 Current Assessment & Plan -SBP goal < 160 -continue home metoprolol ER 50 mg daily, spironolactone 25 mg daily -IV hydralazine/labetalol prn Ischemic cardiomyopathy Yes Overview TTE on 05/09/2017 EF 35-40% 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 with several focal areas of dyskinesis RV normal size and function Mild Aortic Regurgitation Current Assessment & Plan -CAD, NSTEMI (12/2014) s/p mid LAD stent -holding home ASA 81mg daily perioperatively - Metop XL 50 mg daily -continue Atorvastatin 80mg daily -ADAT Respiratory/Chest Chronic obstructive pulmonary disease (HCC) Yes Overview ICD10 Current Assessment & Plan -continue home inhalers -on 3L O2 at night at baseline - will provide 02 PRN -SpO2 goal 88-96% Other History of non-ST elevation myocardial infarction (NSTEMI) Yes Overview Overview: Cath 12/28/14: 100% LAD - stented with bare metal due to history of cerebral aneurysm. Norm al LM; normal LCX; 20-30% RCA. Elevated EDP. Echo.12/28/14. LVEF.54% Continuous tobacco abuse Yes Current Assessment & Plan -nicotine replacement prn Wound dehiscence Unknown Current Assessment & Plan -noted to have small wound dehiscence on 07/09/18, no pre-op antibiotics started. Right sy nthes cranioplasty explanted 07/11/18, intra-op cultures grew staph epidermidis although on e valuation by infectious disease, it was felt this could be a contaminant so no antibiotics w ere started. -admit to NSICU, stable for transfer to [facility] under ENT -s/p right mesh cranioplasty, bilateral latissimus dorsi free flap, and split thickness ski n graft from back on 08/03/18 -- uncomplicated -post op CTH with expected post surgical changes -periop Abx per NSG: continue vanc and ancef perioperatively per ID recommendations and unt il drains are out, 95cc in lat LAZARA, 90cc output in medial LAZARA -Urgent CTH for any neurological decline -ICU goals: SBP < 160, normonatremia, euvolemia -Hep gtt stroke protocol, mgmt per Code Status Code Status Full Code The Advanced Care Note for this patient can be found under the notes tab in chart review. Constitutional: She appears well-developed and well-nourished HENT: Right muscle flap pink. Doppler pulse present Cardiovascular: normal rate and regular rhythm Pulmonary: effort normal and breath sounds normal. Abdominal: Abdomen is soft. Skin: Skin is warm and dry. Right lat side c/d/i vitals reviewed. Physical exam Comments AAOx self, place, time; Speech fluent, answers appropriately PERRL, EOMI V1-V3 symmetric, VFF Face symmetric, TML No pronator drift, no FTN dysmetria 5/5 throughout Complaining of decreased sensation RLE from mid biggs to bottom of foot. . NSICU treatment team members Provider Role Specialty Ipt Ent Head Neck Treatment Team Otolaryngology Ipt Critical Care Nsicu #[id number] Treatment Team Ipt Neurosurgery #[id number] Treatment Team Neurological Surgery Patient Lines/Drains/Airways Status Active Lines, Drains and Airways Name: Placement date: Placement time: Site: Days: Drain LAZARA Right Lateral flank 1 08/03/18 1527 flank less than 1 Drain LAZARA Right Medial flank 2 08/03/18 1527 flank less than 1 Drain Elvin Right head 3 08/03/18 1914 head less than 1 Peripheral IV Left Dorsal Ankle 18 g 08/03/18 1124 Ankle 1 Peripheral IV Left Wrist 08/03/18 Wrist 1 Peripheral IV Right Ankle 22 g 08/03/18 2330 Ankle less than 1 Wound Midline coccyx Pressure ulcer 12/03/17 2200 coccyx 243 Incision Right head 07/11/18 1337 24 Incision Right neck 08/03/18 1245 1 Incision Right flank 08/03/18 1242 1 Flap Right face 08/03/18 face 1 Arterial Line Standard Left Radial 20g 08/03/18 1152 Radial 1 Quality section A-Line necessity reviewed: Plan to DC today Benavides necessity reviewed: Perioperative use and Plan to DC today FAST HUG Feeding: ADAT Analgesia: APAP, oxy, fentanyl Sedation: none Thromboprophylaxis: SCDs Head of Bed: > 30 deg Ulcer Prophylaxis: n/a Glycemic Control: insulin gtt I have spent a total of 44 Minutes independently in the direct care and management of th is patient.Time is independent of any time spent teaching or performing any separately billa ble procedures. I reviewed the documented findings, all data and the recent imaging availabl e. Date of Service: 08/04/2018 KOKO JACKSON EPIC DEPARTMENT: [facility] ICU NEURO Place of Service:- Inpatient CSN: [id number] Suggested Modifier: None Suggested CPT: TO PROJECT MANAGEMENT IT SPECIALIST Author:KOKO JACKSON [address] [id number] [place] [id number] signed by KOKO Jackson at 08/04/2018 1:55 PM Vickie Haines MD,MPH - 08/04/2018 2:08 AM PDT NEUROSURGERY PROGRESS NOTE Attending Physician: Magnolia Diego MD INTERVAL EVENTS: - OR yesterday for mesh cranioplasty with ENT latissimus free flap - Post-op head CT without acute complication - On heparin gtt per ENT OBJECTIVE: Last 24 hour min/max Temp: 37.5 C (99.5 F) Temp Min: 36.2 C (97.2 F) Max: 37.5 C (99.5 F) Pulse: 92 Pulse Min: 91 Max: 108 Resp: 17 Resp Min: 10 Max: 23 BP: 103/55 BP Min: 100/74 Max: 150/72 SpO2: 93 % SpO2 Min: 90 % Max: 97 % Body mass index is 21.37 kg/m. I/O/Drains Current Shift I/O/Drains Last 3 Completed Shifts 08/03 2300 - 08/04 0700 In: 191.9 [I.V.:41.9] Out: 170 [Urine:110; Drains:60] 08/02 2300 - 08/03 2300 In: 2064.9 [I.V.:2064.9] Out: 1140 [Urine:870; Drains:70] No data recorded No data recorded Labs: Complete Blood Count/Coags Recent Labs 08/03/18210908/03/18 2343 08/04/18 0145 WBC 16.85* 16.18* 15.26* HB 11.9* 10.9* 10.3* HCT 37.2 33.9* 31.4* PLT 243 217 202 Invalid input(s): INR CSF Results No results for input(s): WBCCSF, RBCCSF, GLUCOSECSF, PROTEINCSF in the last 8640 hours. Chemistry Recent Labs 12/07/17 1114 05/08/18 1200 05/09/18 0005 05/15/18 0236 07/10/18 1747 08/03/18 1952 08/03/180 08/03/18 2343 NA 137 < > 137 137 < > 138 137 -- -- -- 141 K 5.0 < > 3.9 4.0 < > 4.1 4.2 -- -- -- 4.4 CL 104 < > 111* 109* < > 105 105 -- -- -- 110* BICARB 22 < > 20* 21 < > 25 28 -- -- -- 23 BUN 17 < > 19 13 < > 15 16 -- -- -- 19 CR 0.67 < > 0.79 0.68 < > 0.78 0.88 -- -- -- 0.66 GLU 92 < > 120* 105* < > 125* 90 < > 189* 228* 136* CA 8.4* < > 7.4* 7.8* < > 8.5* 8.7 -- -- -- 8.0* MG -- -- -- 1.7 -- -- -- -- -- -- -- PO4 2.4 -- 4.4 2.7 -- -- -- -- -- -- -- < > = values in this interval not displayed. Culture Results CULTURE RESULT (no units) Date Value 05/13/2008 CSF Culture Source...............: Cerebrospinal Fluid RLB Gram Stain...........: Gram smear performed at [facility]. Culture: Final Report: No growth after 3 days. Final Report CULTURE RESULT (no units) Date Value 07/11/2018 Staphylococcus epidermidis (A) 05/14/2018 Final Report:No Bacteria or Yeast isolated at 5 days. 05/14/2018 Final Report:No Bacteria or Yeast isolated at 5 days. Lab Results Component Value Date APTT 29.8 07/10/2018 FIBRINOGEN 402 05/08/2018 Lab Results Component Value Date RBCCSF 43 05/13/2008 WBCCSF 3 05/13/2008 PROTEINCSF Combined. 05/13/2008 PROTEINCSF 100 (H) 05/13/2008 GLUCOSECSF Combined. 05/13/2008 GLUCOSECSF 78 (H) 05/13/2008 CSFAPP Combined. 05/13/2008 CSFAPP Combined. 05/13/2008 CSFAPP Clear 05/13/2008 NEUROLOGICAL EXAM: Awake, alert, oriented to self, time, place, situation Following commands briskly Speech fluent PERRL EOMI Face symmetric Shoulder shrug equal bilaterally Tongue midline No pronator drift RUE: 5/5 D/B/T/HG LUE: 5/5 D/B/T/HG RLE: 06/25 HF/KE/DF/PF LLE: 06/25 HF/KE/DF/PF SILT Flap incisions covered with Xeroform, minimal oozing noted ASSESSMENT/PLAN: Gloria Adhikari is a 68 y.o. female HD#1 with CAD s/p AK, HTN, GERD, tobacco use, and a history of multiple wound and cranioplasty infections following a Right pterional cran iotomy for clipping of a ruptured AComm aneurysm in 2007. She was recently readmitted on 06/22 with a wound dehiscence and had a PEEK cranioplasty explanted. She has now returned for el ective titanium mesh cranioplasty with ENT latissimus dorsi free flap coverage on 08/03, from which she is recovering well. - Heparin gtt per ENT - Incisions/drains/flap per ENT - Vancomycin/Ancef prophylaxis - Transfer to [facility] with ENT service Please contact the Neurosurgery resident on-call pager [phone] with questions or concerns. Vickie Estrada M.D., M.P.H. R2 Resident Physician Neurological Surgery Pager: [phone] signed by Casey Hewitt MD at 08/04/2018 10:08 AM PDT Associated attestation - Casey Hewitt MD - 08/04/2018 10:08 AM PDTI have seen and examine d the patient. I agree with the resident's documentation and have documented any additions or exceptions. MD Sean Capps Miner N, MD,MPH - 08/03/2018 9:07 PM PDT NEUROSURGERY POST-OP CHECK Author: Vickie Estrada MD,MPH Date: 08/03/2018 Attending Physician: Magnolia Diego MD STATUS POST: Right mesh cranioplasty, ENT latissimus flap Patient examined in PACU VITAL SIGNS: BP 114/69 | Pulse 103 | Temp 36.2 C (97.2 F) (Axillary) | Resp (!) 10 | Ht 1.499 m (4' 11") | Wt 48 kg (105 lb 13.1 oz) | SpO2 92% | BMI 21.37 kg/m | BSA 1.41 m PHYSICAL EXAM FINDINGS: Arouses to voice, oriented to self and "hospital" Following commands Speech hoarse but fluent PERRL EOMI Face symmetric BUE: strong and equal handgrip to command BLE: wiggling toes to command Incisions covered with dressings, clean/dry/intact without strikethrough PLAN: Neurologic status stable. - Head CT as soon as able - Antibiotic prophylaxis - If CT reassuring, OK to continue heparin gtt per ENT - Incisions/drains per ENT - To NSICU from PACU Please contact the Neurosurgery resident on-call pager [phone] with questions or concerns. Vickie Estrada M.D., M.P.H. R2 Resident Physician Neurological Surgery Pager: [phone] signed by Vickie Estrada MD,MPH at 08/03/2018 9:09 PM Rosario Moura MD - 08/03/2018 7:37 PM PDTBRIEF OPERATIVE NOTE Procedure Date: 08/03/2018 Author: ROSARIO SANDERSON MD Attending Physician: Ata White MD Assistants: Abel Pratt MD, Fellow Rosario Sanderson MD, Resident Preoperative Diagnosis: History of chronic scalp wound S/p right mesh cranioplasty Postoperative Diagnosis: Same Procedure Performed: Free autologous flap from right latissimus dorsi to right scalp defect Findings: Thoracodorsal vessels anastomosed to right facial artery and vein Complications: None apparent Fluids: See anesthesia record Specimens: None Drains: LAZARA x2 in back, Elvin x 1 in neck Disposition: PACU then ICU Benavides: Will remain for duration specified by primary team Diet: Strict NPO DVT prophylaxis: okay to begin POD 1 at 2100 Antibiotic Plan: < 24 hrs Glycemic control: None Dressing care: Xeroform to scalp. Gauze fluffs to neck. Tegaderm dressing to back x 3 days . Activity restrictions: HOB > 30 degrees Heparin drip: 1000 units per hour, titrate to PTT 55-70. Initial surgical contact: ENT resident application development intern Rosario Sanderson MD Resident, Plastic & Reconstructive Surgery [facility] Pager [phone] documented in this en counter H&P Notes Barry Ibrahim FNP - 08/03/2018 10:59 PM PDTFormatting of this note might be different fr om the original. . Neuroscience Intensive Care Unit Team H&P Note NSICU ASSIGNED #[id number] Days in ICU Days in Hospital Documentation Date Row Name 08/03/18 1203 Day of Procedure 08/03/18 Neurosurgical Procedures Neurosurgical Neurosurgical Procedures Right mesh cranioplasty, bilateral latissimus dorsi free fla p, STSG from back ICU Admission Reason Most Recent Value ICU Admission reason neuro monitoring following mesh cranioplasty filed at 08/03/2018 120 3 Admitting Provider: MAGNOLIA DIEGO Marsha Adhiakri is a 68 year old female with CAD, NSTEMI (12/28/2014) s/p bare met al stent placement x 2 on ASA, HTN, tobacco dependence and COPD. In September 2007 she had a SAH from ACOM aneurysm rupture, s/p clipping. This hospital course was complicated by hydrocephalus s/p VPS placement March 2008 - has since been removed d ue to infection but has tubing left in place. In December of 2014 she was noted to have a ri ght crani screw exposed with significant sunken cranial defect but due to her recent NSTEMI, stent placement, and dual antiplatelet therapy she was deferred for surgery. In October of 2015 she had an uncomplicated right synthetic cranioplasty. In November she was noted right sided wound dehiscence and epidural MSSA wound infection for which s he underwent explant of right frontal VPS and right cranioplasty. She was discharged home wi th a PICC and received IV ceftriaxone for 6 weeks (12/05/17 - 01/16/18). Prior to stopping a ntibiotics a CT of the head was negative for abscess and therefore the antibiotics were stop ped as scheduled on 01/16/2018. She underwent an elective repeat synthetic cranioplasty with neurosurgery on 05/09/2018 with rotational scalp flap with the ENT doctors. She was discharged home the following [facility] he presented on 05/14/2018 with [...] so were the blood cultures on 05/14/2018. She was not placed on antibiotics during this admission. She was [...] She was then advised to present to [facility] ED. The patient had denied any fever, chills and other systemic infectious symptoms however upon ED evaluation noted some erythema around the surrounding area but no purulence. ENT was consulted and noted a 2 x 3 cm area of expos ed synthetic cranioplasty and she underwent explant of the right synthes custom cranioplasty and wound revision on 07/11/18. Intra-op cultures grew staph epidermidis although on evaluat ion by infectious disease, it was felt this could be a contaminant so no antibiotics were st arted. Today she is admitted to the NSICU on 08/03/18 s/p right mesh cranioplasty, bilateral latiss imus dorsi free flap, and split thickness skin graft from back. Procedural details INTRAOPERATIVE COURSE: LINES, DRAINS & AIRWAY: LINES: DRAINS: AIRWAY: easy OR Events: Events or complications: Cerebral artery clamp time, if applicable: EBL: 200mL Crystalloid: 2 L Blood: units Urine Output: 800ml Significant Event No data filed Active Diagnosis with Assessment & Plan Priority Class POA Head/Neck Skull defect Yes Overview In September of 2007 she had HH4F3 [...] and received IV ceftriaxone for 6 weeks. Cardiovascular HTN (hypertension) Yes Overview ICD10 Current Assessment & Plan -SBP goal < 160 -resume home metoprolol ER 50 mg daily, spironolactone 25 mg daily, lisinopril 5 mg daily * * verify if she is still taking lisinopril -IV hydralazine/labetalol prn Ischemic cardiomyopathy Yes Overview TTE on 05/09/2017 EF 35-40% 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 with several focal areas of dyskinesis RV normal size and function Mild Aortic Regurgitation Current Assessment & Plan -CAD, NSTEMI (12/2014) s/p mid LAD stent -holding home ASA 81mg daily perioperatively - Metop XL 50 mg daily -continue Atorvastatin 80mg daily -ADAT Respiratory/Chest Chronic obstructive pulmonary disease (HCC) Yes Overview ICD10 Current Assessment & Plan -continue home inhalers -on 3L O2 at night at baseline - will provide 02 PRN Other History of non-ST elevation myocardial infarction (NSTEMI) Yes Overview Overview: Cath 12/28/14: 100% LAD - stented with bare metal due to history of cerebral aneurysm. Norm al LM; normal LCX; 20-30% RCA. Elevated EDP. Echo.12/28/14. LVEF.54% Continuous tobacco abuse Yes Current Assessment & Plan -nicotine replacement prn Wound dehiscence Unknown Current Assessment & Plan -noted to have small wound dehiscence on 07/09/18, no pre-op antibiotics started. Right sy nthes cranioplasty explanted 07/11/18, intra-op cultures grew staph epidermidis although on e valuation by infectious disease, it was felt this could be a contaminant so no antibiotics w ere started. -admit to NSICU, q1h neuro checks/vital signs -s/p right mesh cranioplasty, bilateral latissimus dorsi free flap, and split thickness ski n graft from back on 08/03/18 -- uncomplicated -post op CTH with expected post surgical changes -periop Abx per NSG: continue vanc and ancef perioperatively per ID recommendations and unt il drains are out -Urgent CTH for any neurological decline -ICU goals: SBP < 160, normonatremia, euvolemia -Hep gtt stroke protocol Code Status Code Status Full Code @POLSTSTAT@ Code Status Code Status Full Code The Advanced Care Note for this patient can be found under the notes tab in chart review. Review of Systems Respiratory: Positive for snoring, cough, shortness of breath and wheezing. Gastrointestinal: Positive for heartburn. Constitutional: She appears well-developed and well-nourished HENT: Head:normocephalic Neck: normal range of motion neck supple Cardiovascular: normal rate, regular rhythm, normal heart sounds and intact distal pulses Pulmonary: effort normal and breath sounds normal. Musculoskeletal: normal range of motion. Skin: Skin is warm and dry. vitals and nursing note reviewed. Physical exam Her GCS eye subscore is 4 (Eyes open spontaneously). GCS verbal subscore is 5 (Fully orient ed verbal response). GCS motor subscore is 6 (Obeys commands). GCS Score is 15. She has no rmal language, normal speech and normal and symmetric strength in all extremities.She is eugenie rt She is oriented. Past Medical History: Diagnosis Date Abnormal LFTs (liver function tests) CAD in [place] artery s/p NSTEMI 12/27/2014; status post stent placement in the mid LAD Chronic pain COPD on oxygen at night Essential hypertension GERD (gastroesophageal reflux disease) Goiter Hemorrhagic stroke (HCC) 2007 aneurysm MRSA (methicillin resistant staph aureus) culture positive post cariotomy for SAH Otitis media recent abx preadmit PONV (postoperative nausea and vomiting) Subarachnoid hemorrhage due to ruptured aneurysm (HCC) 2007 Tobacco dependence Past Surgical History Procedure Laterality Date Partial thyroidectomy Right Hysterectomy Bladder suspension 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 [employer] shunt Tympanoplasty Right 1987 Lumpectomy of left breast 1979 Coronary stent placement 12/28/2014 status post stent placement in the mid LAD Removal of vp of product shunt Cholecystectomy Allergies Allergen Reactions [place] Tar Hives Betadine [Povidone-Iodine (With Soap)] Rash Cipro [Ciprofloxacin] Nausea and Vomiting Codeine Hcl Nausea and Vomiting Sulfa (Sulfonamide Antibiotics) Erythema Family History Problem Relation Additional Family History Mother dementia Cancer Father brain Cancer Brother lung Social History Socioeconomic History Marital status: Spouse name: Not on file Number of children: Not on file Years of education: Not on file Highest education level: Not on file Occupational History Not on file Social Needs Financial resource strain: Not on file Food insecurity: Worry: Not on file Inability: Not on file Transportation needs: Medical: Not on file Non-medical: Not on file Tobacco Use Smoking status: Current Every Day Smoker Packs/day: 1.00 Years: 50.00 Pack years: 50.00 Types: Cigarettes Smokeless tobacco: Never Used Tobacco comment: Substance and Sexual Activity Alcohol use: No Alcohol/week: 0.0 oz Drug use: No Sexual activity: Never Partners: Male control/protection: Abstinence Lifestyle Physical activity: Days per week: Not on file Minutes per session: Not on file Stress: Not on file Relationships Social connections: Talks on phone: Not on file Gets together: Not on file Attends voodoo service: Not on file Active member of club or organization: Not on file Attends meetings of clubs or organizations: Not on file Relationship status: Not on file Intimate partner violence: Fear of current or ex partner: Not on file Emotionally abused: Not on file Physically abused: Not on file Forced sexual activity: Not on file Other Topics Concern Not on file Social History Narrative Lives alone. February 2012. Medications Prior to Admission Medication Sig Dispense Refill Last Dose acetaminophen 325 mg oral tablet Take 1-2 tablets by mouth every four hours as needed. Indications: Pain Within last 30 days atorvastatin 80 mg oral tablet Take 80 mg by mouth once daily. 08/02/2018 ipratropium-albuterol 0.5 mg-3 mg(2.5 mg base)/3 mL inhalation solution for nebulizatio n Inhale 3 mL two times daily. Within last 7 days metoprolol succinate 50 mg oral tablet extended release 24 hr Take 50 mg by mouth once daily. 08/02/2018 nicotine 21 mg/24 hr transdermal patch 24 hour Apply 1 patch to skin once daily. 30 pat ch 1 Within last 7 days polyethylene glycol 17 gram oral powder in packet Mix 1 packet and take orally three ti mes daily as needed (1st line - for no BM for 2 days). Indications: constipation Not Takin g spironolactone 25 mg oral tablet Take 25 mg by mouth once daily. 08/02/2018 NSICU treatment team members Provider Role Specialty Ipt Ent Head Neck Treatment Team Otolaryngology Ipt Critical Care Nsicu #[id number] Treatment Team Ipt Neurosurgery #[id number] Treatment Team Neurological Surgery Patient Lines/Drains/Airways Status Active Lines, Drains and Airways Name: Placement date: Placement time: Site: Days: Drain LAZARA Right Lateral flank 1 08/03/18 1527 flank less than 1 Drain LAZARA Right Medial flank 2 08/03/18 1527 flank less than 1 Drain Elvin Right head 3 08/03/18 1914 head less than 1 Peripheral IV Left Dorsal Ankle 18 g 08/03/18 1124 Ankle less than 1 Peripheral IV Left Wrist 08/03/18 Wrist less than 1 Wound Midline coccyx Pressure ulcer 12/03/17 2200 coccyx 243 Incision Right head 07/11/18 1337 23 Incision Right neck 08/03/18 1245 less than 1 Incision Right flank 08/03/18 1242 less than 1 Flap Right face 08/03/18 face less than 1 Urethral Catheter Temp-probe Benavides 08/03/18 Temp-probe Benavides less than 1 Arterial Line Standard Left Radial 20g 08/03/18 1152 Radial less than 1 Quality section A-Line necessity reviewed: Plan to DC today Benavides necessity reviewed: Plan to DC today Dispo: ICU FAST HUG Feeding: regular Analgesia: MM Sedation: NA Thromboprophylaxis: SCDs Head of Bed: Head of Bed >30 degrees Ulcer Prophylaxis: not clinically indicated Glycemic Control: not indicated I have spent a total of 58 Minutes independently in the direct care and management of th is patient.Time is independent of any time spent teaching or performing any separately billa ble procedures. I reviewed the documented findings, all data and the recent imaging availabl e. Date of Service: 08/03/2018 GRANT Fuentes [address] [id number] signed by GRANT Fuentes at 08/03/2018 11:20 PM Star Ivey MD - 08/03/2018 10:12 PM PDTFormatting of this note might be different f rom the original. . Neuroscience Intensive Care Unit Attending H&P Note Attending Pager #[phone] ICU Admission Reason Most Recent Value ICU Admission reason neuro monitoring following mesh cranioplasty filed at 08/03/2018 120 3 Days in ICU Days in Hospital Documentation Date Row Name 08/03/18 1203 Day of Procedure 08/03/18 Neurosurgical Procedures Neurosurgical Neurosurgical Procedures Right mesh cranioplasty, bilateral latissimus dorsi free fla p, STSG from back HPI Gloria Marsha Adhikari is a 68 year old female with CAD, NSTEMI (12/28/2014) s/p bare met al stent placement x 2 on ASA, HTN, tobacco dependence and COPD. In September 2007 she had a SAH from ACOM aneurysm rupture, s/p clipping. This hospital course was complicated by hydrocephalus s/p VPS placement March 2008 - has since been removed d ue to infection but has tubing left in place. In December of 2014 she was noted to have a ri ght crani screw exposed with significant sunken cranial defect but due to her recent NSTEMI, stent placement, and dual antiplatelet therapy she was deferred for surgery. In October of 2015 she had an uncomplicated right synthetic cranioplasty. In November she was noted right sided wound dehiscence and epidural MSSA wound infection for which s he underwent explant of right frontal VPS and right cranioplasty. She was discharged home wi th a PICC and received IV ceftriaxone for 6 weeks (12/05/17 - 01/16/18). Prior to stopping a ntibiotics a CT of the head was negative for abscess and therefore the antibiotics were stop ped as scheduled on 01/16/2018. She underwent an elective repeat synthetic cranioplasty with neurosurgery on 05/09/2018 with rotational scalp flap with the ENT doctors. She was discharged home the following [facility] he presented on 05/14/2018 with [...] so were the blood cultures on 05/14/2018. She was not placed on antibiotics during this admission. She was [...] She was then advised to present to [facility] ED. The patient had denied any fever, chills and other systemic infectious symptoms however upon ED evaluation noted some erythema around the surrounding area but no purulence. ENT was consulted and noted a 2 x 3 cm area of expos ed synthetic cranioplasty and she underwent explant of the right synthes custom cranioplasty and wound revision on 07/11/18. Intra-op cultures grew staph epidermidis although on evaluat ion by infectious disease, it was felt this could be a contaminant so no antibiotics were st arted. Today she is admitted to the NSICU on 08/03/18 s/p right mesh cranioplasty, bilateral latiss imus dorsi free flap, and split thickness skin graft from back. Procedural details INTRAOPERATIVE COURSE: LINES, DRAINS & AIRWAY: LINES: DRAINS: AIRWAY: easy OR Events: Events or complications: Cerebral artery clamp time, if applicable: EBL: 200mL Crystalloid: 2 L Blood: units Urine Output: 800ml Medical Decision Making 68 y/o woman with a complex medical history including high-grade SAH in 2007, for which sandra pettit underwent clipping of her ruptured anterior communicating artery aneurysm. She developed postoperative hydrocephalus which required a right frontal ventriculoperitoneal shunt. She re-presented in 2015, to the neurosurgical service with results of her bone flap and loose h ardware. Since then, she has had multiple revisions to her cranioplasty. Today, she underwen t a R mesh cranioplasty, wound debridement, and Latissimus dorsi tissue graft by ENT service . Case was uneventful. Patient arrives to the ICU somnolent, but following commands. Post-op Head CT with expected changes. Plan: -Q1h doppler checks of latissimus flap for viability; at risk of flat failure -Confirm with ENT about preferred method of dressing changes; currently incompletely covere d with Xeroform dressing, portion of flap exposed to air. -Cont. Kamala-op Abx of Vanc/Ancef per NSGY request while drains in place; follow drain outpu t -Start Heparin gtt, stroke protocol, no bolus, to preserve flap viability -Multi-modal analgesia with tylenol, oxycodone -Zofran for nausea -Frequent Neuro checks; at risk for CSF leak, AK, UTI, acute blood loss anemia, DVT -Strict BP <160mmHg to prevent hemorrhage into flap; a-line for beat to beat monitoring -Active current smoker, goal sats >92%, cont. Supplemental O2, at risk of hypoxemia NPO until mental status improved and then perform bedside swallow; Insulin infusion for hyp erglycemia -Full Code HENT: Exposed muscle flat and skin graft, some Xeroform coverage, with active drainage of s erosanguinous fluid from flap, elvin drain in cheek Cardiovascular: normal rate and regular rhythm Pulmonary: effort normal and breath sounds normal. Abdominal: Abdomen is soft. Musculoskeletal: LAZARA drains in back from donor graft site Skin: Skin is warm and dry. vitals and nursing note reviewed. Physical exam She has normal and symmetric strength in all extremities and normal sensation.She is leth argy She is disoriented to time. She displays nonverbal communication.No obvious cranial ner ve abnormality, but exam limited by mass effect from new flap on face Comments Follows comma nds briskly in all 4. Hospital Problems Priority POA Head/Neck Skull defect Yes Cardiovascular HTN (hypertension) Yes Ischemic cardiomyopathy Yes Respiratory/Chest Chronic obstructive pulmonary disease (HCC) Yes Other History of non-ST elevation myocardial infarction (NSTEMI) Yes Continuous tobacco abuse Yes Wound dehiscence Unknown NSICU treatment team members Provider Role Specialty Ipt Ent Head Neck Treatment Team Otolaryngology Ipt Critical Care Nsicu #[id number] Treatment Team Ipt Neurosurgery #[id number] Treatment Team Neurological Surgery Code Status Code Status Full Code The Advanced Care Note for this patient can be found under the notes tab in chart review. Quality section A-Line necessity reviewed: Vgyy-nc-hxad blood pressure monitoring Benavides necessity reviewed: Plan to DC today I have spent a total of 43 minutes in the direct care and management of this patient indepe ndent of any time spent teaching or performing any separately billable procedures. I reviewe d the documented findings, all data and the recent imaging available. Date of Service: 08/03/2018 Author:STAR VARELA MD [address] [id number] signed by Star Varela MD at 08/03/2018 10:40 PM P Sarah Spring MD - 08/03/2018 10:27 AM PDTFormatting of this note might be differen t from the original. Pre-Operative History and Physical Gloria Adhikari presents for wound dehiscence. From clinic note 07/28: "Subjective: Gloria Adhikari is a 68 y.o. year old female with complicated histor y following surgical management of ruptured anterior communicating artery aneurysm and hydro cephalus which occurred in 2007, who has required multiple surgical procedures for wound inf ection, explant and re-implantation of cranioplasty, and eventual plastic surgery consultati on. Most recently, she underwent synthes cranioplasty (05/08/18) with rotational flap perfor med by Dr Ata White. She represented with wound dehiscence managed with over sewing of the wo und by ENT (05/14-05/17). Unfortunately, Ms Adhikari again presented for medical attention aft er her son noticed recurrent skin opening with cranioplasty exposure. She was admitted to tn urosurgery service on 07/10 and underwent explant of her cranioplasty and wound closure by JACQUELYN Sanford the following day. She was discharged to home on 07/13. Ms Adhikari's surgical culture was notable for growth of staph epidermidis. As such, we consulted her ID physician who recomm ended return to clinic as able to coordinate for evaluation. Ms Adhikari was seen earlier th is morning by ENT and will see Dr Chandler from [facility] after this appointment. Ms Adhikari reports that she's doing well. She denies pain/discomfort at the surgical wound. No fevers, chills." No changes to health. Denies antiplatelet/anticoagulation. Prior to Admission Medications Prescriptions acetaminophen 325 mg oral tablet Sig: Take 1-2 tablets by mouth every four hours as needed. Indications: Pain atorvastatin 80 mg oral tablet Sig: Take 80 mg by mouth once daily. ipratropium-albuterol 0.5 mg-3 mg(2.5 mg base)/3 mL inhalation solution for nebulization Sig: Inhale 3 mL two times daily. metoprolol succinate 50 mg oral tablet extended release 24 hr Sig: Take 50 mg by mouth once daily. nicotine 21 mg/24 hr transdermal patch 24 hour Sig: Apply 1 patch to skin once daily. polyethylene glycol 17 gram oral powder in packet Sig: Mix 1 packet and take orally three times daily as needed (1st line - for no BM for 2 d ays). Indications: constipation spironolactone 25 mg oral tablet Sig: Take 25 mg by mouth once daily. Facility-Administered Medications: None Allergies Allergen Reactions [place] Tar Hives Betadine [Povidone-Iodine (With Soap)] Rash Cipro [Ciprofloxacin] Nausea and Vomiting Codeine Hcl Nausea and Vomiting Sulfa (Sulfonamide Antibiotics) Erythema Past Medical History: Diagnosis Date Abnormal LFTs (liver function tests) CAD in [place] artery Chronic pain COPD Essential hypertension GERD (gastroesophageal reflux disease) Goiter Hemorrhagic stroke (HCC) 2007 MRSA (methicillin resistant staph aureus) culture positive Otitis media PONV (postoperative nausea and vomiting) Subarachnoid hemorrhage due to ruptured aneurysm (HCC) 2007 Tobacco dependence ROS: negative except for above Exam: BP 100/74 (BP Location: Right upper arm, Patient Position: Lying on back) | Pulse 91 | Te mp 36.4 C (97.6 F) (Forehead) | Resp 18 | Ht 1.499 m (4' 11") | Wt 48 kg (105 lb 13.1 oz) | SpO2 94% | BMI 21.37 kg/m | BSA 1.41 m Heart: extremities wwp Lungs: easy resp on room air AOx4, speech appropriate, follows commands PERRL, EOMI, FS, TM Neg drift BUE/BLE 5/5 SILT Area of wound dehiscence in prior crani flap Impression/Diagnosis: wound dehiscence Surgical Plan proceed to OR PARQ Reviewed, consent on chart. documented in this encou nter Procedure Notes Ata White MD - 08/11/2018 12:07 PM PDTAssociated Order(s): OPERATION RECORDDate of Service : 08/03/2018 Attending Surgeon:Ata White MD Addendum: This is an addendum to this young lady's surgical note. In my original note I h ad described 3 different vascular anastomoses. However, the complexity of the case was not fully described, and I am doing so here. The original vascular anastomosis was planned for the superficial temporal vessels. These were explored by dividing the skin and subcutaneous tissue, and then in the periparotid maria r on, dissecting out the superficial temporal artery and vein. The vein was identified, and w as of a good size. The artery was extremely small and was followed after tedious dissection down into the parotid gland. We went down as far as we felt comfortable, without identifyi ng the facial nerve, and then had to abandon it as the vessel was so small. We then made an incision in the face, after dopplering of the facial vessels. These were i dentified and vascular anastomosis was performed in the neck to the facial artery and facial vein. The facial vein, as described, was standard. The facial artery was redone 3 times. Each time it was done under the operating microscope using Heifetz clips and microscopic co ntrol. We put tacking sutures at 180 degrees, sewed the anterior wall in a running continuo us fashion, flipped it over and sewed the posterior wall. The 1st time it was sewn, it clot eli after about 2 minutes. We then took down the artery and flushed out the clot and cleane d up the vessel. There was a small intimal tear. We cut back on the artery, and then redid the anastomosis in the same fashion. This time it lasted longer, but still continued to cl ot. We took down the anastomosis and inspected, and then the facial artery was then dissect ed down into the neck on top of the submandibular gland. To maintain that we had enough larisa gth, we freed it up to provide at least a centimeter or so more length. The artery to the l eft flap was cut back until we had good intima, and again the anastomosis was performed for the 3rd time. This time it was successful and did not need to be redone. Ata White MD MW/MODL /[id number] signed by Ata White MD at 08/14/2018 12:15 PM PDTWax , MD Ata - 08/11/2018 12:07 PM PDTAssociated Order(s): OPERATION RECORDDate of Service: 0 08/03/2018 Attending Surgeon:Ata White MD Utility Hand(s):Dr. Garcia Preoperative Diagnosis: Cranioplasty infection. Postoperative Diagnosis: Cranioplasty infection. Operative Procedure: Resection and removal of cranioplasty and replacement with cranioplas ty mesh, a left latissimus dorsi myocutaneous free flap, a full-thickness skin graft, 35 x 5 cm, vascular anastomosis to the facial artery, which was redone 3 times because of clot, an d to the facial vein Operative Note: This lady has had a cranioplasty which has become infected. It was felt i t needed to be removed, so she was brought to the operating room and in conjunction with Latia rosurgery was put to sleep, general anesthesia, prepped and draped in usual manner. A surgi eagle pause was performed by the team. She then had her cranioplasty explanted through her in cision. We examined her scalp wounds and felt that we needed to reconstruct the scalp becau se of the thinness and the lack of an ability to put things together tension-free, so we columba roached a left latissimus dorsi flap. The SPIDER device was brought in the operating room, was elevated and then her arm was put in the appropriate position. The anterior aspect of the latissimus muscle was visualized an d a skin incision was performed. We harvested a 35 x 5 cm full-thickness skin graft from th e anterior part of the incision. Suitable traction was placed and using a 10 blade in a sub dermal fashion we elevated the full-thickness skin graft in this size. This was then put as michell for later reconstruction. Incising down through skin and subcutaneous tissue onto the latissimus muscle, we elevated flaps superiorly and inferiorly and medially and laterally. We isolated the entire latissim us muscle and then divided it inferiorly and posteriorly. Hemostasis was obtained using cau allie and a few clips. The vascular pedicle was identified and followed up into the axilla. We then had the muscle entirely hinged on the humeral head and the vascular pedicle. The v ascular pedicle would follow. We now had 1 single vena comitans, good size artery and so we took off the humeral head and ligated the vascular pedicle, and the flap was sent up to [facility] d and neck region. The back was closed after elevating flap so that we could be tension-free. We excised the full-thickness skin graft donor site and closed the back with 2-0 Vicryl pops, 5-0 Caprosyn, 2 flat 10 [place]Story drains were placed. In the head and neck region we explored in the right superficial temporal vessels. A great vein, but the artery was quite small, never really bled well. We then went down to the fac ial vessels, identified the facial artery, facial vein and through a small incision just inf erior to the mandible. The ramus nerve was identified and preserved throughout the entire p rocedure. After raising the subplatysmal flaps we had good length on the facial artery and facial vein. The flap then was brought up into the head and neck region. It was laid in underneath the scalp incision anteriorly and posteriorly and held in 6 sutur es with 3-0 Vicryl. The skin incisions were closed on top of the latissimus flap with 3-0 V icryl. The defect of 35 x 5 cm was reconstructed using the full-thickness skin graft. It was brou ght onto the field and secured using 5-0 Caprosyn along the entire length of the incision si te. The pie-crusting was performed and we then proceeded with the vascular anastomosis. Through a tunnel in the neck we fed the vascular pedicle down into the facial vessels. A m icroscope was brought in, Heifetz clips applied to the facial vein and facial artery. The f acial artery was sewn 2 times and each time it clotted. We removed the clot, cut back the v essels and on the third time under the microscope we re-did the anastomosis. 180-degree tac cayetano sutures were placed, retraction applied laterally and the anterior wall was sewn in a r unning continuous fashion. Once this had been done we flipped the artery over, did the post erior wall and then tied it laterally. The vein was measured and a 4.0 collection support specialist was utilized . We put the 2 ends in through the coupling device's holes and then pegged them to the spik es and closed the device. This gave us closure and the device was removed. The Heifetz cli ps were removed and on the third try with the artery we had excellent flow and maintained go od flow till the end of the case. A [place] Doppler was placed and there was excellent flow till the end of the case. The neck wound had a Elvin drain placed and was closed usi ng 3-0 Vicryl, 5-0 Caprosyn. The rest of the skin wounds on the head had been closed as debi cribed above. The patient tolerated this well, was woken up, extubated and sent out to the recovery room. The flap was viable at the end of the procedure. MD CHANDRIKA Hansen/NGUYEN /[id number] signed by Ata White MD at 08/11/2018 3:14 PM PDTDoMagnolia malik MD - 08/03/2018 6:27 PM PDTAssociated Order(s): OPERATION RECORDDate of Service: 08/03/2018 Attending Surgeon: MD Magnolia Hansen MD Utility Hand(s): MD Abel Clarke MD David J Mazur Hart, MD Kutluay Uluc, MD Preoperative Diagnosis: Wound dehiscence. Postoperative Diagnosis: Wound dehiscence. Procedures Performed: 1. Right mesh cranioplasty >5cm. 2. Wound debridement. 3. Latissimus dorsi tissue graft by ENT service. Anesthesia: General endotracheal anesthesia. Estimated Blood Loss: 100 mL. Graft/implants: Medtronic molded mesh and 4 mm fixation screws x9. Specimens: None. Complications: None. Indications For Procedure: The patient is a 68-year-old woman who had a previous high-grad e subarachnoid hemorrhage in 2007, for which she underwent clipping of her ruptured anterior communicating artery aneurysm. She developed postoperative hydrocephalus which required a right frontal ventriculoperitoneal shunt. She also developed a left superficial neck absces s that required surgical drainage. 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 She re-presented in 2015, to the neurosurgi eagle service with results of her bone flap and loose hardware. She underwent a synthetic scraper burrer nioplasty at that time. Unfortunately, she then developed exposed cranioplasty in November, which required surgical explantation. She returned to the Neurosurgery Clinic reque sting cranioplasty for cosmetic reasons. There was significant discussion regarding her con tinued smoking use and thin tissue, which would put a cranioplasty synthetic at great risk f or poor wound healing or breakdown. She underwent a cranioplasty in April of 2018, for whic h the wound was closed primarily. Unfortunately, she re-presented with an exposed hardware over her cranioplasty. This, too, needed explantation, which occurred in June 2018, and Ear, Nose, and Throat team assisted with closure of the complex wound. Unfortunately, on return to Neurosurgery Clinic for removal of her sutures, she again developed wound breakdown with exposed dural tissue underneath, for which she was indicated for the above procedure. A fu ll PARQ discussion was held, in which all risks, benefits, alternatives were discussed with the patient in great detail. The patient wishes to perform with surgical intervention. A s igned consent was placed in the chart. Procedure In Detail: The patient was identified in the preoperative holding area and was b rought back to the operating room theater on a [facility]. She was given to the anesth esia staff, for which general endotracheal anesthesia was induced without difficulty. Her e yes were taped shut using Tegaderms. She was positioned supine with a slight bump to elevat e her right side, to expose latissimus dorsi for the ear, nose and throat surgeons. Xerofor m was placed in the ear. Hair was minimally clipped along the prior surgical scars which we re to be reopened. Preoperative prophylactic intravenous antibiotics were given. Her prior incisions were easily identifiable and marked out and prepped using chlorhexidine and Chlor aPrep, due to her iodine allergy. We did not inject with local anesthetic. The patient was draped in the usual sterile fashion. Ioban was avoided due to her iodine allergy. A team pause was held in which all members of the operating room agreed this is the correct patient in the correct position for the correct procedure. The neurosurgical portion of this dictation will cover the cranial portion of the exposure. A #10 scalpel blade was used to perform skin incision. Bovie electrocautery was used for hemostasis and further dissection of the periosteum. Agusto clips were applied for hemostasi s, while avoiding electrocautery as much as possible. A periosteal elevator was used to rem ove the periosteum posterior to the incision and anterior to the bone edges. The [place] 1 was used to dissect the scar tissue and periosteum from the inner [place] of the bony defect . Tenotomies and blunt dissection were used to elevate the myofascial flap from her scarred dural replacement for which a nice plane was found. A preformed Medtronic mesh was opened on the back table sterilely and cut to fit the patient's cranial defect. This was placed us ing 4 mm cranial fixation screws with firm application and good cosmetic coverage. There we re no pointy or sharp edges to inhibit wound healing. The wound was covered with blue towel s to maintain sterility. Following this, the case was handed over to Dr. White to perform both latissimus dorsi graft and wound closure of the scalp. At the end of our portion of the case, all needle counts, sponge counts, and instrument cou nts were correct x2. Dr. Diego was present for all critical portions of the case. MD Magnolia Benz MD DJM/NGUYEN /[id number] I, Dr. Magnolia Diego certify that I was present for and participated in the critical parts of the procedure. I further certify that I was the principal surgeon for this procedure. MAGNOLIA DIEGO MD [facility] [address] [id number] documented in this encou nter Consult Notes Johnie Varma RN - 08/10/2018 2:36 PM PDTWound Care Consult 08/10/18 Wound location: Intergluteal cleft Wound etiology: friction Wound bed: Dry, pink Wound edges: Open Periwound skin: Intact Exudate amount: None Odor: None Pain: Gloria endorses pain when "I slide on it in bed" Topical Care Recommendations: Gloria does not like the Allevyn on it. She says it is uncomfortable. Applied A&D ointment and she said that this is soothing. -cleanse with saline moistened gauze and pat dry -apply A&D ointment to wound Frequency: Once daily and PRN Additional recommendations: Continue to encourage ambulation. Gatch knees to prevent sliding in bed. Claudette Ervin PharmD - 08/05/2018 12:24 PM PDT Pharmacist Managed Vancomycin: Monitoring Note Indication: post-operative prophylaxis Goal trough: 10-15 Level: 9.5 mg/L was drawn appropriately, approximately 12 hours after the last dose. CrCl ~40-45 Urine output: decreased urine output Renal function: stable Plan: Trough level subtherapeutic, however UOP has declined and only using for prophylaxis at thi s time. Continue with current regimen of 500 mg IV every 12 hours. Repeat level: If patient remains on vancomycin, pharmacist will order another trough level in 3 days or sooner if renal function declines significantly Please page clinical pharmacist ([phone]) or call central inpatient pharmacy ([phone]) with qu estions. Actual body weight: Weight: 50.7 kg (111 lb 12.4 oz) (08/04/18 0600) Labs: CREATININE PLASMA (LAB) (mg/dL) Date Value 08/05/2018 0.75 08/03/2018 0.66 BUN, PLASMA (LAB) (mg/dL) Date Value 08/05/2018 17 08/03/2018 19 WHITE CELL COUNT (K/cu mm) Date Value 08/05/2018 11.23 (H) 08/04/2018 12.81 (H) 08/04/2018 11.65 (H) VANCOMYCIN, TROUGH (ug/mL) Date/Time Value 08/05/2018 0140 9.5 (L) Pertinent cultures/sensitivities: None during this admission. Prior tissue/wound cultures growing MSSA and resistant staph epidermidis. Thank you for the consult, Claudette Koehler PharmD, BCPS documented in this encounter Miscellaneous Notes Plan of Care - Vida Rogel RN - 08/11/2018 12:04 PM PDTReviewed home medications, (no new medications), diet, activity, wound care, and follow-up appointment. Wound care supplies s ent with pt. Pt discharged to brother's house in [place]. andoff - Sachin Bradley RN - 08/11/2018 2:11 AM PDTAnson campbell Handoff [facility] IP NURSE HANDOFF: Nesbitt hospital course events: Per pervious handoff note: Admit: 08/03 Rt crani and Rt latissimus dorsi free flap Hx: COPD, smoker, HTN, NSTEMI (12/28/2014) s/p bare metal stent placement x 2 on ASA, HTN, tobacco dependence and COPD, 2007 SAH from ACOM aneurysm rupture (clipped), 03/2008 hydroceph alus and Rt VPS. 10/2015 Rt synthetic cranioplasty. November of 2017 wound dehiscence/ epid ural wound infection - explant of Rt VPS and Rt cranioplasty. 04/2018 synthetic cranioplast y with scalp flap. Readmit for Rt frontal fluid collection, which was drained. June 2018 small exposed cranioplasty site. Explant of the Rt cranioplasty and wound revision on 06/22 03/11. 08/08: Heparin gtt stopped COMFORT/ANXIETY/BEHAVIOR Patient/Family Target: Gloria wants to be comfortable and sleep tonight. Progress to Target: Improving As evidenced by: Gloria requested PRN Tylenol once for comfort. Reported that she slept well tonight. HYGIENE/INFECTION Patient/Family Target: Gloria skin integrity will be maintained. Progress to Target: No Change As evidenced by: Skin tear on coccyx was cleaned with NS and A&D ointment was applied. She is on air matte ress and encouraged pt to lay on left side, and put pillow on R hip when supine. NURSING ASSESSMENT & RECOMMENDATIONS FORWARD Nursing Assessment of Patient Stability Risk: Moderately stable Recommendations Forward: - Monitor flap site, q 4hr FLAP checks. Small area on bottom of m uscle draining scant blood into Rt ear. Maintain xeroform over flap area. - Monitor skin around coccyx area. Pt needs to relieve pressure by laying on sides or on p illows. Clean with saline, dry and put A&D ointment on skin tears -Up with SBA - Maintain LAZARA x1 Barriers to discharge: DC home on Tuesday andoff - Chandler Godfrey RN - 08/10/2018 7:06 PM PDTNursing Handoff [facility] IP NURSE HANDOFF: Nesbitt hospital course events: Per pervious handoff note: Admit: 08/03 Rt crani and Rt latissimus dorsi free flap Hx: COPD, smoker, HTN, NSTEMI (12/28/2014) s/p bare metal stent placement x 2 on ASA, HTN, tobacco dependence and COPD, 2007 SAH from ACOM aneurysm rupture (clipped), 03/2008 hydroceph alus and Rt VPS. 10/2015 Rt synthetic cranioplasty. November of 2017 wound dehiscence/ epid ural wound infection - explant of Rt VPS and Rt cranioplasty. 04/2018 synthetic cranioplast y with scalp flap. Readmit for Rt frontal fluid collection, which was drained. June 2018 small exposed cranioplasty site. Explant of the Rt cranioplasty and wound revision on 06/22 03/11. 08/08: Heparin gtt stopped SAFETY Patient/Family Target: Gloria will be safe when up walking Progress to Target: Improving As evidenced by: Gloria is calling appropriately for assist to BR. She is walking with her brother and sis ter n'law during day and using a walker and slippers when out of bed. Progress to Target: Improving NURSING ASSESSMENT & RECOMMENDATIONS FORWARD Nursing Assessment of Patient Stability Risk: Moderately stable Recommendations Forward: - Monitor flap site, pencil doppler q4h. Small area on bottom of muscle draining scant blood into Rt ear. Maintain xeroform over muscle part of flapon botto m right and small muscle bump area. - Monitor for pain around coccyx area. Pt needs to relieve pressure by laying on sides or on pillows. Wound care nurse check bottom and recommends A&D on skin tears and allevyn if to lerated. -Up with SBA and up ad libin room - Maintain LAZARA x1 Barriers to discharge: Possible discharged home on Tuesday andoff - Sachin Bradley RN - 08/10/2018 12:15 AM PDTNursing Handoff [facility] IP NURSE HANDOFF: [facility] hospital course events: Per pervious handoff note: Admit: 08/03 Rt crani and Rt latissimus dorsi free flap Hx: COPD, smoker, HTN, NSTEMI (12/28/2014) s/p bare metal stent placement x 2 on ASA, HTN, tobacco dependence and COPD, 2007 SAH from ACOM aneurysm rupture (clipped), 03/2008 hydroceph alus and Rt VPS. 10/2015 Rt synthetic cranioplasty. November of 2017 wound dehiscence/ epid ural wound infection - explant of Rt VPS and Rt cranioplasty. 04/2018 synthetic cranioplast y with scalp flap. Readmit for Rt frontal fluid collection, which was drained. June 2018 small exposed cranioplasty site. Explant of the Rt cranioplasty and wound revision on 06/22 03/11. 08/08: Heparin gtt stopped COMFORT/ANXIETY/BEHAVIOR Patient/Family Target: Gloria wants to be comfortable and sleep tonight. Progress to Target: Improving As evidenced by: Gloria c/o pain at the coccyx once in the evening and pain was relief after Tylenol. Enco uraged pt to lay on side to prevent pain and skin breakdown. She denied pain the rest of the shift and reported that she slept well tonight. NURSING ASSESSMENT & RECOMMENDATIONS FORWARD Nursing Assessment of Patient Stability Risk: Moderately stable Recommendations Forward: - Monitor flap site, pencil doppler q4h. Small area on bottom of muscle draining scant blood into Rt ear. Maintain xeroform over flap area. - Monitor for pain around coccyx area. Pt needs to relieve pressure by laying on sides or on pillows. 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 10/2015 Rt synthetic cranioplasty. November of 2017 wound dehiscence/ epid ural wound infection - explant of Rt VPS and Rt cranioplasty. 04/2018 synthetic cranioplast y with scalp flap. Readmit for Rt frontal fluid collection, which was drained. June 2018 small exposed cranioplasty site. Explant of the Rt cranioplasty and wound revision on 06/22 03/11. 08/08: Heparin gtt stopped RESTORATIVE MEASURES/SELF-MANAGEMENT Patient/Family Target: Gloria will sleep at least 4 hours on night on 08/08 Progress to Target: Improving As evidenced by: Due to infrequent inturruptions, Gloria was able to sleep at least 4 hours during night s hift. Recommendations Forward: - Heparin gtt stopped 08/08 in am. Lovenox to start 08/08 evening. - Monitor flap site, pencil doppler q4h. Small area on bottom of muscle draining scant blo od into Rt ear. Maintain xeroform over flap area. - Monitor for headaches - Monitor for pain around coccyx area. Pt needs to relieve pressure by laying on sides or on pillows. - up with assist 1 to bathroom for line management - Maintain 2 remaining JPs - Pt can be up in room and walk in hallway with family supervision - Possible discharged on Tuesday? 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 10/2015 Rt synthetic cranioplasty. November of 2017 wound dehiscence/ epid ural wound infection - explant of Rt VPS and Rt cranioplasty. 04/2018 synthetic cranioplast y with scalp flap. Readmit for Rt frontal fluid collection, which was drained. June 2018 small exposed cranioplasty site. Explant of the Rt cranioplasty and wound revision on 06/22 03/11. 08/08: Heparin gtt stopped Recommendations Forward: - Heparin gtt stopped 08/08 in am. Lovenox to start 08/08 evening. - Monitor flap site, pencil doppler q4h. Small area on bottom of muscle draining scant blo od into Rt ear. Maintain xeroform over flap area. - Monitor for headaches - Monitor for pain around coccyx area. Pt needs to relieve pressure by laying on sides or on pillows. - up with assist 1 to bathroom for line management - Maintain 2 remaining JPs - Pt can be up in room and walk in hallway with family supervision - Possible discharged on Tuesday? 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 10/2015 Rt synthetic cranioplasty. November of 2017 wound dehiscence/ epid ural wound infection - explant of Rt VPS and Rt cranioplasty. 04/2018 synthetic cranioplast y with scalp flap. Readmit for Rt frontal fluid collection, which was drained. June 2018 small exposed cranioplasty site. Explant of the Rt cranioplasty and wound revision on 06/22 03/11." COMFORT/ANXIETY/BEHAVIOR Patient/Family Target: Gloria's pain will be well managed Progress to Target: No Change As evidenced by: Gloria reported low back pain this shift, she only wants Tylenol which she reports is eff ective, she wants to avoid taking narcotics NURSING ASSESSMENT & RECOMMENDATIONS FORWARD Nursing Assessment of Patient Stability Risk: Moderately stable Recommendations Forward: -Maintain heparin gtt, next check at 0230. Last check ptt at 50.4 (therapeutic) Currently running at 10 ml/hr. - Monitor flap site, pencil doppler q4h. Small area on bottom of muscle draining scant blo od into Rt ear. Maintain xeroform over flap area. - Monitor headaches - Monitor for pain around coccyx area. Pt needs to relieve pressure by laying on sides or on pillows. 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 10/2015 Rt synthetic cranioplasty. November of 2017 wound dehiscence/ epid ural wound infection - explant of Rt VPS and Rt cranioplasty. 04/2018 synthetic cranioplast y with scalp flap. Readmit for Rt frontal fluid collection, which was drained. June 2018 small exposed cranioplasty site. Explant of the Rt cranioplasty and wound revision on 06/22 03/11. Recommendations Forward: - Maintain heparin gtt, next check at 2029. Last check pt at 48.4 (not in therapeutic range) Currently running at 10 ml/hr. - Monitor flap site, pencil doppler q4h. Small area on bottom of muscle draining scant blo od into Rt ear. Maintain xeroform over flap area. - Monitor headaches - Monitor for pain around coccyx area. Pt needs to relieve pressure by laying on sides or on pillows. - up with assist 1 to bathroom for line management - Maintain 2 remaining JPs andoff - Claus Adkins RN - 08/07/2018 3:10 AM PDTNursing Handoff Patient Daily Goal: Sleep (08/05/18 2337) Patient Specific Preferences: family at bedside/TV on/cell phone within reach at all times (08/05/18 1053) [facility] IP NURSE HANDOFF: [facility] hospital course events: Per previous handoff "history CAD, NSTEM I (12/28/2014) s/p bare metal stent placement x 2 on ASA, HTN, tobacco dependence and COPD. S he underwent multiple wound dehiscence and cranioplasty infections following a right pterion al craniotomy for clipping of ruptured aneurysm in 2007. She recently underwent on 08/03/18 s/p right mesh cranioplasty, bilateral latissimus dorsi free flap, and split thickness skin graft from back---- Flap (scalp): warm, soft, signal present. Xeroform in place. Muscle exposed, bleeding appro priately. Small area over forehead with dressing in place and strikethrough. [place] on neck removed 08/06 in AM, small amount of continuous draining from incision. aware. Right back Donor site: Dressing intact. LAZARA x 2 drains on bulb suction (per Dr Byron Johnson/EnT note this am 08/05/18)" Craniplasty swollen with small amount of ecchymottic area on top portion of flap, MD aware. COMFORT/ANXIETY/BEHAVIOR Patient/Family Target: Gloria's pain will be well managed Progress to Target: No Change As evidenced by: Gloria reports her head is painful; tylenol x1 given which is effective for pain. Decreas ed stimuli and promoted rest to help with anxiety and pain. HYGIENE/INFECTION Patient/Family Target: Gloria will remain free of signs of infection/adequate blood flow to flap. Progress to Target: No Change As evidenced by: Gloria has stable VS. Afebrile. Incision has small amount of drainage coming from neck an d top of head, MD aware. Quite amount of swelling on head and neck, will continue to monitor . NURSING ASSESSMENT & RECOMMENDATIONS FORWARD Nursing Assessment of Patient Stability Risk: Moderately stable Recommendations Forward: - Heparin gtt currently @ 900units/hr, PTT at 630 am. - oozing from old elvin site and flap - LAZARA X2 right flank, notify ENT for increased bleeding - COPD, uses O2 as needed - Encourage intake, jaw painful while chewing - Q4 doppler checks Barriers to discharge: Pending course andoff - Omar Haas RN - 08/06/2018 10:40 PM PDTNursing Handoff Patient Daily Goal: Sleep (08/05/18 2337) Patient Specific Preferences: family at bedside/TV on/cell phone within reach at all times (08/05/18 1053) [facility] IP NURSE HANDOFF: [facility] hospital course events: Per previous handoff "history CAD, NSTEM I (12/28/2014) s/p bare metal stent placement x 2 on ASA, HTN, tobacco dependence and COPD. S he underwent multiple wound dehiscence and cranioplasty infections following a right pterion al craniotomy for clipping of ruptured aneurysm in 2007. She recently underwent on 08/03/18 s/p right mesh cranioplasty, bilateral latissimus dorsi free flap, and split thickness skin graft from back---- Flap (scalp): warm, soft, signal present. Xeroform in place. Muscle exposed, bleeding appro priately. Small area over forehead with dressing in place and strikethrough. [place] on neck with dried crust surrounding. Right back Donor site: Dressing intact. LAZARA x 2 drains on bulb suction (per Dr Byron Johnson/EnT note this am 08/05/18)" COMFORT/ANXIETY/BEHAVIOR Patient/Family Target: Gloria'raine pain will be well managed Progress to Target: No Change As evidenced by: Gloria reports back and coccyx are painful; coccyx red, blanchable, Alleyvn dressing on, Tylenol effective for pain and mattress switched to an air mattress which Gloria reports is helping with pain. NURSING ASSESSMENT & RECOMMENDATIONS FORWARD Nursing Assessment of Patient Stability Risk: Moderately stable Recommendations Forward: - Heparin gtt currently @ 1000units/hr, PTT pending, last one was within goal range - oozing from old elvin site and flap - LAZARA X2 right flank, notify ENT for increased bleeding - COPD, uses O2 as needed - Encourage intake, jaw painful while chewing - Q4 doppler checks Barriers to discharge: Pending course lan of Care - Georgia Bernstein, PT - 08/06/2018 9:44 AM PDTFormatting of this note might be different from the lenin batista. Problem: PT Goals- Adult Goal: Functional Mobility Goal Description Patient will perform sit to stand and pivot transfer independently Patient will ambulate 300 feet independently Patient will be independent with neck and shoulder range of motion exercises Outcome: Goal met Physical Therapy Evaluation [id number] GLORIA [facility] Day: 3 Date of : 1950 Start of care: 08/06/2018 Attending Practitioner: Ata White MD Primary/Referral Diagnosis/ICD-9: T81.31XA Dehiscence of operative wound, initial encounter Insurance: Payor: MEDICARE / Plan: MEDICARE A & B / Product Type: Medicare / Service period from: 08/06/2018 to 11/04/2018 Time in: 0930 Time out: 1010 Patient was seen for a total of 40 minutes of direct one on one skilled physical therapy wh ich included evaluation 10 minutes of therapeutic exercises and 15 minutes of gait training Patient seen on 10K Others Present for PT session besides patient and therapist: none Consulted/Discussed patient's care with: RN,1st call Brief Hospital Course: Gloria Adhikari is a 68 y.o. female with history CAD, NST SONIA (12/28/2014) s/p bare metal stent placement x 2 on ASA, HTN, tobacco dependence and COPD. She underwent multiple wound dehiscence and cranioplasty infections following a right pteri onal craniotomy for clipping of ruptured aneurysm in 2007. She recently underwent on 9 s/p right mesh cranioplasty, bilateral latissimus dorsi free flap, and split thickness ski n graft from back. As per MD notes,08/06/18 Relevant Precautions: crani Indication for PT Evaluation: Instruction for safety with mobility following surgery or inj ury Past Medical History: Diagnosis Date Abnormal LFTs (liver function tests) CAD in [place] artery Chronic pain COPD Essential hypertension GERD (gastroesophageal reflux disease) Goiter Hemorrhagic stroke ([facility]) 2007 MRSA (methicillin resistant staph aureus) culture positive Otitis media PONV (postoperative nausea and vomiting) Subarachnoid hemorrhage due to ruptured aneurysm ([facility]) 2007 Tobacco dependence Past Surgical History: Procedure Laterality Date BLADDER SUSPENSION CHOLECYSTECTOMY CORONARY STENT PLACEMENT 12/28/2014 HYSTERECTOMY LUMPECTOMY OF LEFT BREAST 1979 PARTIAL THYROIDECTOMY Right REMOVAL OF 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 SHUNT REPAIR OF ANEURYSM BY CLIPPING TYMPANOPLASTY Right 1987 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 SHUNT Subjective:Patient agreed to work with PT "I want to walk and not feel tired." Living Environment: Patient lives by herself in a single hawa house with no steps to ente r.Son lives next door,can provide required assistance as needed Bathroom Set-up: Tub shower; shower chair Prior Level of Function: Mobility: independent with bed mobility,transfers,ambulation and stair climbing, drives, g oes for grocery shopping, hobbies- loves to go visit [employer], catching up with friends,COPD- uses oxygen at night- patient not sure about level of oxygen at this time Equipment at home: single point cane, electric wheelchair, three wheeled and four wheeled walker Patient / Family Goal: walk Communication/Barriers: Kazakh/none Pain: none endorsed Vital Signs: stable pre and post session Cognitive Screen Level of alertness: awake and alert Orientation: ox4 Quality of responses: appropriate to open end questions Command following: appropirate to multi step commands Judgment / safety awareness: intact Physical Assessment ROM: within functional limits bilateral lower extremity ,limited right shoulder and neck r richard of motion Strength: 5/5 bilateral lower extremity Edema: none observed Skin Integrity: impaired -incision site -right flank, right neck, right head,check wound notes in chart for more details Posture: within functional limits Neurological Function Sensation: intact to light touch bilateral lower extremity Muscle Tone: within functional limits Proprioception: intact Gross Motor: within functional limits Fine Motor: within functional limits Balance: Sitting static: normal, independent Sitting dynamic: normal, independent Standing static: normal, without assistive device, independent Standing dynamic: good,without assistive device, standby Functional Balance Grades Normal Static: Patient able to maintain steady balance without handhold support Dynamic: Patient accepts maximal challenge and can shift weight easily within full range in all directions Good Static: Patient able to maintain balance without handhold support, limited postural sw ay Dynamic: Patient accepts moderate challenge; able to maintain balance while picking object off floor Fair Static: Patient able to maintain balance with handhold support; may require occasional minimal assistance Dynamic: Patient accepts minimal challenge; able to maintain balance while turning head/muriel nk Poor Static: Patient requires handhold support and moderate to maximal assistance to mainta in position Dynamic: Patient unable to accept challenge or move without loss of balance O Edgardo Carrizales. and Tia Adame (2007). Physical rehabilitation: assessment and treatme nt (5th ed.). Ava: [facility]. p.[phone] Mobility & Transfers: Supine to sit/Sit to supine: independent Sit to stand/Stand to sit: Independent without assistive device Scoot: independent Stand pivot transfer: supervision without assistive device Gait: Patient ambulated 200 feet without assistive device,standby assist,reciprocal gait pa ttern, no loss of balance, no deviation from path,no buckling of knee, verbal cues to increa se step length and gait speed progressed to independent Outcome Measure: [facility] BASIC MOBILITY Difficulty turning over in bed 4 - None - Modified Independent/Independent Difficulty sitting/standing from chair w/ arms 4 - None - Modified Independent/ Independent Difficulty moving from supine to sitting on edge of bed 4 - None - Modified Independent/Ind ependent Help needed moving from /to chair/wheelchair 3 - A Little - Minimal/Contact Guard Assist/S upervision Help needed walking in hospital room 3 - A Little - Minimal/Contact Guard assist/Supervisio n Help needed climbing 3-5 steps w/railing 3 - A Little - Minimal/Contact Guard Assist/Superv ision [facility] Basic Mobility Total Score 21 Interpretation of [facility] Short Form - Basic Mobility: CMS Modifier (G-Code) Score (in points) % of Functional Impairment, Limitation, or Restriction CN 6 100% impaired, limited, restricted CM 7-9 At least 80%, but less than 100% impaired, limited, or restricted CL 10-14 At least 60%, but less than 80% impaired, limited, or restricted CK 15-19 At least 40%, but less than 60% impaired, limited, or restricted CJ 20-22 At least 20%, but less than 40% impaired, limited, or restricted CI 23 At least 1%, but less than 20% impaired, limited, or restricted CH 24 0% impaired, limited, or restricted *This score not officially observed but is implied based on other components of patient's m obility and may be an underestimate Treatment and education provided this date: orders received, chart reviewed,patient was kamille luated, durable medical equipment screening done, education on crani, neck and shoulder rang e of motion exercises edge of bed - Patient performed bilateral lower extremity -hip flexion,long arc quads and a nkle toe movements -10 reps each- active range of motion Patient performed neck and shoulder range of motion exercises -according to sheet - 5 reps each -neck flexion,extension,side flexion and rotation, shoulder flexion, abduction, scapula elevation and retraction within pain free range Ended session: Patient left in bed with call payton within reach and RN updated. ASSESSMENT: Gloria Adhikari is a 68 year old admitted on 08/03/2018 with prior lev el of function independent with bed mobility,transfers,ambulation and stair climbing.Patient presents here with assistance for transfers and ambulation.Patient has limited right should er and neck range of motion .Patient has good standing dynamic balance, no durable medical e quipment needs. Patient has COPD at baseline,fatigues easily, no oxygen needs in this sessio n,post ambulation SpO2 95%.Acute PT services indicated to address the above mentioned defici ts.End of session,patient has meet her acute care goals,independent with bed mobility,transf ers,ambulation.PT Signoff See Care Plan for goals. Personal factors/Comorbidities; High - 3 or more personal factors. Behavior: None Learning Factors: Appears anxious/dissociated. Social Issues: Medical conditions and Multiple hospitalizations Medical Conditions Impacting Care: Multiple co-morbidities, Neurological and Challenged int egumentary system Body Systems Elements: High - 4 or more elements Body structures & functions: Range of motion, Strength, Cardiopulmonary status, Balance, En durance and Motor control Activity limitations: Impaired gait, Difficulty with stairs and Difficulty with activities of daily living Participation restrictions: Community activities. Clinical Presentation: Moderate - Evolving: Drains/lines/tubes, Vital signs response and Ra pid decline of current condition leading to hospitalization Clinical decision making: Moderate Complexity: Moderate level of skill to determine plan of care and implement changes accordingly Complexity: moderate Gloria's knowledge of disease process: Good . The patient requires services that can be safely and effectively performed only by a quali fied therapist to address the aforementioned and highlighted problems and goals. Goals discussed and agreed upon with Gloria. Activity Recommendations for Nursing partners: *Nursing to re-assess per shift as needed.* - Lights on and curtains open during day hours. - Up to chair for meals or 3x/day,independently. - Routine ambulation 3x/day,independently. DISCHARGE RECOMMENDATIONS: Home with assist PRN Durable medical equipment - None Updated PT recommendations- RN,1st call PLAN: PT Signoff The above plan of care and goals were developed and reviewed with the patient. Should this patient discharge from the hospital prior to the next physical therapy treatmen t, this note shall serve as the discharge summary. andoff - Bon Herrera RN - 08/06/2018 2:04 AM PDTNursing Handoff Patient Daily Goal: Sleep (08/05/18 6580) Patient Specific Preferences: family at bedside/TV on/cell phone within reach at all times (08/05/18 1053) [facility] IP NURSE HANDOFF: Nesbitt hospital course events: history CAD, NSTEMI (12/28/2014) s/p bar e metal stent placement x 2 on ASA, HTN, tobacco dependence and COPD. She underwent multiple wound dehiscence and cranioplasty infections following a right pterional craniotomy for cli pping of ruptured aneurysm in 2007. She recently underwent on 08/03/18 s/p right mesh cranio plasty, bilateral latissimus dorsi free flap, and split thickness skin graft from back---- Flap (scalp): warm, soft, signal present. Xeroform in place. Muscle exposed, bleeding appro priately. Small area over forehead with dressing in place and strikethrough. Elvin on neck with dried crust surrounding. Right back Donor site: Dressing intact. LAZARA x 2 drains on bulb suction (per Dr Byron Johnson/EnT note this am 08/05/18) SAFETY Patient/Family Target: Gloria will remain safe while avoiding accidental removal lines/tubes Progress to Target: No Change As evidenced by: Gloria prefers to be independent. She has been appropriate overnight and has not been imp ulsive. She has ambulated to the bathroom a couple of times safely but forgets about her IV and JPs. She has been aware of her limits overnight and has asked for a hand while ambulatin g. NURSING ASSESSMENT & RECOMMENDATIONS FORWARD Nursing Assessment of Patient Stability Risk: Moderately stable Recommendations Forward: - Heparin gtt, next PTT 11AM - LAZARA X2 right flank, notify ENT for increased bleeding - COPD, uses O2 as needed - Encourage intake, jaw painful while chewing - Q4 doppler checks Barriers to discharge: Pending course andoff - Yony Pace RN - 08/05/2018 4:31 PM PDTNursing Handoff Patient Daily Goal: "some good sleep would be nice" (08/05/18 1053) Patient Specific Preferences: family at bedside/TV on/cell phone within reach at all times (08/05/18 1053) [facility] IP NURSE HANDOFF: Nesbitt hospital course events: history CAD, NSTEMI (12/28/2014) s/p bar e metal stent placement x 2 on ASA, HTN, tobacco dependence and COPD. She underwent multiple wound dehiscence and cranioplasty infections following a right pterional craniotomy for cli pping of ruptured aneurysm in 2007. She recently underwent on 08/03/18 s/p right mesh cranio plasty, bilateral latissimus dorsi free flap, and split thickness skin graft from back---- Flap (scalp): warm, soft, signal present. Xeroform in place. Muscle exposed, bleeding appro priately. Small area over forehead with dressing in place and strikethrough. [place] on neck with dried crust surrounding. Right back Donor site: Dressing intact. LAZARA x 2 drains on bulb suction (per Dr Byron Johnson/EnT note this am 08/05/18) SAFETY Patient/Family Target: Gloria will remain safe while avoiding accidental removal lines/tubes Progress to Target: No Change As evidenced by: Glorai can be impulsive/ she prefers to be independent with care/she will shift herself a nd move uE.LE independently--she is forgetful & needs reinforcement about lines/tubes & impo rtance to avoid infection/dislodgement of tubes or drains HYGIENE/INFECTION Patient/Family Target: Maggie will not have infection interferring with wound healing as she progresses towards discharge Progress to Target: No Change As evidenced by: Gloria needs encouragement to allow staff to turn/reposition her---she will frequently de clne care; she declines use of SCDs and will perform AROM frequently--she understands discus gabriel about prevention of blood clots, etc. Gloria will continue to cough + deep breath with intermittent independent suctioning "back of my throat"---she is a current smoker of approx 1 ppd (per Gloria's report to this RN); continue to monitor all woundss for increased drain age/bleeding NURSING ASSESSMENT & RECOMMENDATIONS FORWARD Nursing Assessment of Patient Stability Risk: Moderately stable Recommendations Forward: Monitor APTT results for heparin infusion as ordered/next APPT dra hoffman is due at 2049; Monitor drains #1, #2 via right flank area--notify ENT for increased bleeding; Encourage Gloria to use oxymask as she usually does not want to use oxygen---she reports to this RN that she doesn't use her oxygen at home either; Will transfer to [facility] when bed is available ssessment & Plan Note - Israel Del Real ACNP - 08/05/2018 10:11 AM PDTAssociated Problem(s): Postoperative anemia due to acute blood lossGiven 1u PRBC yesterday for H&H 09/11. This morning 8.4. Will recheck CBC in AM unless significant oozing / worsening tachycardia throughout the day , then will check more frequently andoff - Edita Gay RN - 08/04/2018 6:37 PM PDTNursing Handoff [facility] IP NURSE HANDOFF: Nesbitt hospital course events: -OR 08/03 for mesh cranioplasty with ENT latissimus free flap; Q1H flap pulses pulsatile throughout shift(08/04) - Post-op head CT without acute complication - On heparin gtt, triturating down - 08/04 1 unit RBC infused, Benavides D/C, diet advanced - SAFETY Patient/Family Target: Patient will continue to be non-impulsive, recognizing self limitation with recent surger y/flap out Progress to Target: No Change As evidenced by: Not impulsive; calls appropriately HYGIENE/INFECTION Patient/Family Target: Patient will remain afebrile Progress to Target: No Change As evidenced by: No concerning temperature noted throughout shift NURSING ASSESSMENT & RECOMMENDATIONS FORWARD Nursing Assessment of Patient Stability Risk: Moderately stable Recommendations Forward: Continue monitoring CBG, encourage mobilization Barriers to discharge: Low H& H required blood transfusion; low urine output ssessment & Plan Note - Israel Del Real ACNP - 08/04/2018 1:52 PM PDTAssociated Problem(s): Wound dehiscence-not ed to have small wound dehiscence on 07/09/18, no pre-op antibiotics started. Right synthes c ranioplasty explanted 07/11/18, intra-op cultures grew staph epidermidis although on evaluati on by infectious disease, it was felt this could be a contaminant so no antibiotics were sta rted. -admit to NSICU, stable for transfer to [facility] under ENT -s/p right mesh cranioplasty, bilateral latissimus dorsi free flap, and split thickness ski n graft from back on 08/03/18 -- uncomplicated -post op CTH with expected post surgical changes -periop Abx per NSG: continue vanc and ancef perioperatively per ID recommendations and unt il drains are out, 115cc in lateral LAZARA, 135cc output in medial LAZARA -Urgent CTH for any neurological decline -ICU goals: SBP < 160, normonatremia, euvolemia -Hep gtt stroke protocol, mgmt per ENTElectronically signed by KOKO Jackson at 08/05 10:06 AM PDTAssessment & Plan Note - Israel Del Real ACNP - 08/04/2018 1:52 PM PDTAss ociated Problem(s): Smoker-nicotine replacement prn ssessment & Plan Note - Israel Del Real ACNP - 08/04/2018 1 :51 PM PDTAssociated Problem(s): Chronic obstructive pulmonary disease (HCC)-continue home i nhalers -on 3L O2 at night at baseline - will provide 02 PRN -SpO2 goal 88-96% ss essment & Plan Note - Israel Del Real ACNP - 08/04/2018 1:51 PM PDTAssociated Problem(s): I schemic cardiomyopathy-CAD, NSTEMI (12/2014) s/p mid LAD stent -holding home ASA 81mg daily perioperatively - Metop XL 50 mg daily -continue Atorvastatin 80mg daily -ADAT ssessment & Pl an Note - Israel Del Real ACNP - 08/04/2018 1:50 PM PDTAssociated Problem(s): HTN (hyperten gabriel)-SBP goal < 160 -continue home metoprolol ER 50 mg daily, spironolactone 25 mg daily -IV hydralazine/labetalol prn 1 :51 PM PDTPlan of Care - Mao Correa, [facility] - 08/03/2018 11:07 PM PDTFormatting of this no te might be different from the original. Problem: RT Goals & Interventions Goal: Evaluation Outcome: Gradual progress toward goal Note: History and Assessment Pulmonary problems: COPD [...] UNSIGNED / - - Pain: Oxygen requirement: Simple O2 Delivery: Simple Mask Oxygen Flow Rate: 2 Oxygen Flow Unit of Measure: L/min Heart rate: 100 Respiratory rate: 18 Temperature: Temp: 36.2 C (97.2 F) Breathsounds:DARIEN General: coarse RUL General: coarse Cough and sputum production: Respiratory Acuity and Protocol Plan A respiratory evaluation has been completed. Based on this assessment Evaluated for treatme nt under home maintenance therapy. &P Compiled Note - Barry Ibrahim FNP - 08/03/2018 10:59 PM PDTOther Wound dehiscence Assessment & Plan -noted to have small wound dehiscence on 07/09/18, no pre-op antibiotics started. Right synt hes cranioplasty explanted 07/11/18, intra-op cultures grew staph epidermidis although on kamille luation by infectious disease, it was felt this could be a contaminant so no antibiotics wer e started. -admit to NSICU, q1h neuro checks/vital signs -s/p right mesh cranioplasty, bilateral latissimus dorsi free flap, and split thickness ski n graft from back on 08/03/18 -- uncomplicated -post op CTH with expected post surgical changes -periop Abx per NSG: continue vanc and ancef perioperatively per ID recommendations and unt il drains are out -Urgent CTH for any neurological decline -ICU goals: SBP < 160, normonatremia, euvolemia -Hep gtt stroke protocol ssessment & Plan No te - Barry Ibrahim FNP - 08/03/2018 10:58 PM PDTAssociated Problem(s): Wound dehiscence-n oted to have small wound dehiscence on 07/09/18, no pre-op antibiotics started. Right synthes cranioplasty explanted 07/11/18, intra-op cultures grew staph epidermidis although on evalua tion by infectious disease, it was felt this could be a contaminant so no antibiotics were s tarted. -admit to NSICU, q1h neuro checks/vital signs -s/p right mesh cranioplasty, bilateral latissimus dorsi free flap, and split thickness ski n graft from back on 08/03/18 -- uncomplicated -post op CTH with expected post surgical changes -periop Abx per NSG: continue vanc and ancef perioperatively per ID recommendations and unt il drains are out -Urgent CTH for any neurological decline -ICU goals: SBP < 160, normonatremia, euvolemia -Hep gtt stroke protocol &P Compiled Note - Barry Ibrahim FNP - 08/03/2018 10:57 PM PDTCardiovascular Ischemic cardiomyopathy Assessment & Plan -CAD, NSTEMI (12/2014) s/p mid LAD stent -holding home ASA 81mg daily perioperatively - Metop XL 50 mg daily -continue Atorvastatin 80mg daily -ADAT Respiratory/Chest Chronic obstructive pulmonary disease (HCC) Assessment & Plan -continue home inhalers -on 3L O2 at night at baseline - will provide 02 PRN Other Wound dehiscence Assessment & Plan -noted to have small wound dehiscence on 07/09/18, no pre-op antibiotics started. Right synt hes cranioplasty explanted 07/11/18, intra-op cultures grew staph epidermidis although on kamille luation by infectious disease, it was felt this could be a contaminant so no antibiotics wer e started. -admit to NSICU, q1h neuro checks/vital signs -s/p right mesh cranioplasty, bilateral latissimus dorsi free flap, and split thickness ski n graft from back on 08/03/18 -- uncomplicated -post op CTH with expected post surgical changes -periop Abx per NSG: continue vanc and ancef perioperatively per ID recommendations and unt il drains are out -Urgent CTH for any neurological decline -ICU goals: SBP < 160, normonatremia, euvolemia ssessment & Plan No te - Barry Ibrahim FNP - 08/03/2018 10:56 PM PDTAssociated Problem(s): Wound dehiscence-n oted to have small wound dehiscence on 07/09/18, no pre-op antibiotics started. Right synthes cranioplasty explanted 07/11/18, intra-op cultures grew staph epidermidis although on evalua tion by infectious disease, it was felt this could be a contaminant so no antibiotics were s tarted. -admit to NSICU, q1h neuro checks/vital signs -s/p right mesh cranioplasty, bilateral latissimus dorsi free flap, and split thickness ski n graft from back on 08/03/18 -- uncomplicated -post op CTH with expected post surgical changes -periop Abx per NSG: continue vanc and ancef perioperatively per ID recommendations and unt il drains are out -Urgent CTH for any neurological decline -ICU goals: SBP < 160, normonatremia, euvolemia ssessment & Plan Note - Barry Ibrahim FNP - 08/03/2018 10:55 PM PDTAssociated Problem(s): Chronic obstructive pulmonary disease (HCC)-continue home inha lers -on 3L O2 at night at baseline - will provide 02 PRN ssessment & Plan Note - Barry Ibrahim FNP - 08/03/2018 1 0:54 PM PDTAssociated Problem(s): Ischemic cardiomyopathy-CAD, NSTEMI (12/2014) s/p mid LAD stent -holding home ASA 81mg daily perioperatively - Metop XL 50 mg daily -continue Atorvastatin 80mg daily -ADAT &P Compiled No te - Barry Ibrahim FNP - 08/03/2018 10:53 PM PDTCardiovascular Ischemic cardiomyopathy Assessment & Plan -CAD, NSTEMI (12/2014) s/p mid LAD stent -holding home ASA 81mg daily perioperatively -home medications as above -continue Atorvastatin 80mg daily -continue Lisinopril 5mg daily is she still taking this? -ADAT to heart healthy, 2g Na+ diet HTN (hypertension) Assessment & Plan -SBP goal < 160 -resume home metoprolol ER 50 mg daily, spironolactone 25 mg daily, lisinopril 5 mg daily * * verify if she is still taking lisinopril -IV hydralazine/labetalol prn Respiratory/Chest Chronic obstructive pulmonary disease (HCC) Assessment & Plan -continue home inhalers -on 3L O2 at night at baseline refusing? Other Wound dehiscence Assessment & Plan -noted to have small wound dehiscence on 07/09/18, no pre-op antibiotics started. Right synt hes cranioplasty explanted 07/11/18, intra-op cultures grew staph epidermidis although on kamille luation by infectious disease, it was felt this could be a contaminant so no antibiotics wer e started. -admit to NSICU, q1h neuro checks/vital signs -s/p right mesh cranioplasty, bilateral latissimus dorsi free flap, and split thickness ski n graft from back on 08/03/18 -- uncomplicated -post op CTH with expected post surgical changes -periop Abx per NSG: continue vanc and ancef perioperatively per ID recommendations and unt il drains are out -Urgent CTH for any neurological decline -ICU goals: SBP < 160, normonatremia, euvolemia Continuous tobacco abuse Assessment & Plan -nicotine replacement prn andoff - Shabana Aguilera RN - 08/03/2018 8:41 PM PDTFormatting of this note might be different from the origi nal. Meets Phase I Discharge Criteria (Stable For Transfer): Past Medical History: Diagnosis Date Abnormal LFTs (liver function tests) CAD in [place] artery s/p NSTEMI 12/27/2014; status post stent placement in the mid LAD Chronic pain COPD on oxygen at night Essential hypertension GERD (gastroesophageal reflux disease) Goiter Hemorrhagic stroke (HCC) 2007 aneurysm MRSA (methicillin resistant staph aureus) culture positive post cariotomy for SAH Otitis media recent abx preadmit PONV (postoperative nausea and vomiting) Subarachnoid hemorrhage due to ruptured aneurysm (HCC) 2007 Tobacco dependence Past Surgical History Procedure Laterality Date Partial thyroidectomy Right Hysterectomy Bladder suspension 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 Research Environmental Engineer shunt Tympanoplasty Right 1987 Lumpectomy of left breast 1978 Coronary stent placement 12/28/2014 status post stent placement in the mid LAD Removal of vp of product shunt Cholecystectomy Patient Lines/Drains/Airways Status Active Lines, Drains and Airways Name: Placement date: Placement time: Site: Days: Drain LAZARA Right Lateral flank 1 08/03/18 1527 flank less than 1 Drain LAZARA Right Medial flank 2 08/03/18 1527 flank less than 1 Drain [place] Right head 3 08/03/18 1914 head less than 1 Peripheral IV Left Dorsal Ankle 18 g 08/03/18 1124 Ankle less than 1 Wound Midline coccyx Pressure ulcer 12/03/17 2200 coccyx 242 Incision Right head 07/11/18 1337 23 Incision Right neck 08/03/18 1245 less than 1 Incision Right flank 08/03/18 1242 less than 1 Flap Right face 08/03/18 face less than 1 Urethral Catheter Temp-probe Benavides 08/03/18 Temp-probe Benavides less than 1 Arterial Line Standard Left Radial 20g 08/03/18 1152 Radial less than 1 Major deviations/events or pertinent findings of kamala-operative stay: opens eyes to Voice, weak movement BLE to request. No movment BLE. Albuterol neb given in pacu, pt with nasal tr umpet, sats 92%. Pt arrived to pacu with heparin running at 1000 units/hr. Cbc and INR sent . External doppler loud and clear at sutures R side of face. [place] drain at right neck. In sulin gtt running at 2.6 units/hr per endotool. Anticipated post-op needs/devices/follow up: doppler pulses, pain, wounds, neuro, 02 sats Post-Op Diagnosis Codes: * Dehiscence of operative wound, sequela [T81.31XS] Surgical Procedure Planned - Actual Procedure Performed: Procedure(s) with comments: CRANIOPLASTY WITH FREE FLAP - RIGHT SIDED MESH CRANIOPLASTY; LATISSIMUS DORSI FREE FLAP, SPLIT THICKNESS SKIN GRAFT - BILATERAL LATISSIMUS DORSI FREE FL AP, SPLIT THICKNESS GRAFT 200 SQ FROM BACK, EXPLORATION SUPERFICIAL TEMP VESSELS FACIAL VESS ELS POSSIBLE VEIN GRAFT FROM ARM Anesthesia: General Length of procedure: In Room/Out of Room: 8 Hr 37 Min 52 Sec Surgeon(s) and Role: Panel 1: * Magnolia Diego MD - Primary * Casey Hewitt MD - Fellow Panel 2: * Ata White MD - Primary * Abel Pratt III, MD - Fellow OR positioning comments: see OR notes Neuro: POSS Sedation Level: 3 Last pain medication given: Pain medication totals: none given in pacu Additional pain medication information: Functional Epidural: N/A SUPERCALENDER OPERATOR HELPER: N/A Respiratory: RR: 23 , O2 Sat: 92 % , O2 Delivery: Oxymask Breath Sounds: Ex DARIEN: coarse LLL: RUL: coarse RLL: MELISSA No Comment: Cardiac: BP: 103/59 HR: 104 GI: Nausea/Vomiting Status: No Signs/Symptoms: Interventions: Assessment: Comments: : Last void: benavides in place Contact Name: brothpranay Lr Contact Number: [phone] toi Simental Family contacted: Yes Comment: Belongings:1 bag, helmet, dentures and glasses with patient rief Op Note - Sarah Johns MD - 08/03/2018 6:19 PM PDT Brief Op Note Procedure Date: 08/03/2018 Author: SARAH ENRIQUEZ MD Attending Physician: Magnolia Diego MD (NSGY) and Ata White MD (ENT) Assistants: Casey Hewitt MD (NSGY), Sarah Last MD (NSGY), Rosario Sanderson MD (ENT), kenyetta Pratt MD (ENT) Preoperative Diagnosis: Wound dehiscence Postoperative Diagnosis: Same Procedure Performed: 1. RIGHT mesh cranioplasty >5cm 2. Wound debridement 3. Latissimus dorsi tissue graft by ENT Anesthesia: GETA Estimated Blood Loss: 100mL for NSGY portion Grafts/Implants: [employer] molded mesh; 4mm fixation screws x9 Specimens: None from NSGY portion Complications: None from NSGY portion Findings: Cranial defect with plane between myocutaneous flap and dura. Open skin wound did not enter subdural space. Small durotomy during dissection closed with myofascial graft. Fluids: other: per Anesth Disposition: PACU then ICU Benavides: placed preop Diet: ADAT to regular DVT prophylaxis: per attendings Antibiotic Plan: cont while drains are in place Glycemic control: prn Dressing care: per ENT Activity restrictions: HOB > 30 degrees Initial surgical contact: DARY resident application development intern at pager [phone] Patient Lines/Drains/Airways Status Active Lines, Drains and Airways Name: Placement date: Placement time: Site: Days: Wound Midline coccyx Pressure ulcer 12/03/17 2200 coccyx 242 Incision Right head 07/11/18 1337 22 SARAH ENRIQUEZ MD ssessment & Plan Note - Barry Ibrahim FNP - 08/03/2018 4:11 PM PDTAssociated Problem(s): Smoker-nicotine replac ement prn ssessment & Plan Note - Morenita Reece PA-C - 08/03/2018 4:09 PM PDTAssociated Problem(s): Chronic obst ructive pulmonary disease (HCC)-continue home inhalers -on 3L O2 at night at baseline refusing?Electronically signed by Morenita Reece PA-C at 4:10 PM PDTAssessment & Plan Note - Morenita Reece PA-C - 08/03/2018 4:08 PM PDTAsso ciated Problem(s): Ischemic cardiomyopathy-CAD, NSTEMI (12/2014) s/p mid LAD stent -holding home ASA 81mg daily perioperatively -home medications as above -continue Atorvastatin 80mg daily -continue Lisinopril 5mg daily is she still taking this? -ADAT to heart healthy, 2g Na+ diet ssessment & Plan Note - Morenita Reece PA-C - 08/03/2018 4:07 PM PDTAssociated Parvez johnson(s): HTN (hypertension)-SBP goal < 160 -resume home metoprolol ER 50 mg daily, spironolactone 25 mg daily, lisinopril 5 mg daily * * verify if she is still taking lisinopril -IV hydralazine/labetalol prn ssessment & Plan Note - Barry Ibrahim FNP - 08/03/2018 3:41 PM PDTAssociated Pro blem(s): Wound dehiscence-noted to have small wound dehiscence on 07/09/18, no pre-op antibio tics started. Right synthes cranioplasty explanted 07/11/18, intra-op cultures grew staph epi dermidis although on evaluation by infectious disease, it was felt this could be a contamina nt so no antibiotics were started. -admit to NSICU, q1h neuro checks/vital signs -s/p right mesh cranioplasty, bilateral latissimus dorsi free flap, and split thickness ski n graft from back on 08/03/18 -- uncomplicated -post op CTH with expected post surgical changes -periop Abx per NSG: continue vanc and ancef perioperatively per ID recommendations and unt il drains are out -Urgent CTH for any neurological decline -ICU goals: SBP < 160, normonatremia, euvolemia documented in this encounter Plan of Treatment + +---------+--------+ + + | Name | Type | Priori | Associated Diagnoses | Order Schedule | | | | ty | | | + +---------+--------+ + + | INTRAPROCEDURE | Imaging | Routin | | One Time for 1 | | IMAGING | | e | | Occurrences starting | | | | | | 08/03/2018 until | | | | | | 08/03/2018, 1 | | | | | | completed | + +---------+--------+ + + documented as of this encounter Procedures + +--------+ + + + | Procedure Name | Priori | Date/Time | Associated Diagnosis | Comments | | | ty | | | | + +--------+ + + + | OPERATION RECORD | | 08/11/2018 | | Results for this | | | | 12:07 PM | | procedure are in the | | | | PDT | | results section. | + +--------+ + + + | OPERATION RECORD | | 08/11/2018 | | Results for this | | | | 12:07 PM | | procedure are in the | | | | PDT | | results section. | + +--------+ + + + | CBC (HEMOGRAM) ONLY | Urgent | 08/10/2018 | | Results for this | | | | 5:28 AM | | procedure are in the | | | | PDT | | results section. | + +--------+ + + + | RENAL FUNCTION SET | Urgent | 08/10/2018 | | Results for this | | (NA,K,CL,CO2,BUN,CRE | | 5:28 AM | | procedure are in the | | AT,GLUC,CA,PHOS,ALB | | PDT | | results section. | | ) | | | | | + +--------+ + + + | CBC ONLY | Urgent | 08/10/2018 | | Results for this | | | | 5:28 AM | | procedure are in the | | | | PDT | | results section. | + +--------+ + + + | CAPILLARY BLOOD | Routin | 08/09/2018 | Dehiscence of | Results for this | | GLUCOSE (NO CHG), | e | 10:27 AM | operative wound, | procedure are in the | | POC | | PDT | initial encounter | results section. | + +--------+ + + + | CBC (HEMOGRAM) ONLY | Urgent | 08/09/2018 | | Results for this | | | | 5:43 AM | | procedure are in the | | | | PDT | | results section. | + +--------+ + + + | RENAL FUNCTION SET | Urgent | 08/09/2018 | | Results for this | | (NA,K,CL,CO2,BUN,CRE | | 5:43 AM | | procedure are in the | | AT,GLUC,CA,PHOS,ALB | | PDT | | results section. | | ) | | | | | + +--------+ + + + | CBC ONLY | Urgent | 08/09/2018 | | Results for this | | | | 5:43 AM | | procedure are in the | | | | PDT | | results section. | + +--------+ + + + | CAPILLARY BLOOD | Routin | 08/08/2018 | Dehiscence of | Results for this | | GLUCOSE (NO CHG), | e | 9:34 PM | operative wound, | procedure are in the | | POC | | PDT | initial encounter | results section. | + +--------+ + + + | CAPILLARY BLOOD | Routin | 08/08/2018 | Dehiscence of | Results for this | | GLUCOSE (NO CHG), | e | 5:33 PM | operative wound, | procedure are in the | | POC | | PDT | initial encounter | results section. | + +--------+ + + + | CAPILLARY BLOOD | Routin | 08/08/2018 | Dehiscence of | Results for this | | GLUCOSE (NO CHG), | e | 8:00 AM | operative wound, | procedure are in the | | POC | | PDT | initial encounter | results section. | + +--------+ + + + | CBC (HEMOGRAM) ONLY | Urgent | 08/08/2018 | | Results for this | | | | 6:40 AM | | procedure are in the | | | | PDT | | results section. | + +--------+ + + + | RENAL FUNCTION SET | Urgent | 08/08/2018 | | Results for this | | (NA,K,CL,CO2,BUN,CRE | | 6:40 AM | | procedure are in the | | AT,GLUC,CA,PHOS,ALB | | PDT | | results section. | | ) | | | | | + +--------+ + + + | CBC ONLY | Urgent | 08/08/2018 | | Results for this | | | | 6:40 AM | | procedure are in the | | | | PDT | | results section. | + +--------+ + + + | APTT (ACT. PART. | Urgent | 08/08/2018 | | Results for this | | THROMBO TIME) | | 6:40 AM | | procedure are in the | | | | PDT | | results section. | + +--------+ + + + | APTT (ACT. PART. | Urgent | 08/08/2018 | | Results for this | | THROMBO TIME) | | 2:02 AM | | procedure are in the | | | | PDT | | results section. | + +--------+ + + + | CAPILLARY BLOOD | Routin | 08/07/2018 | Dehiscence of | Results for this | | GLUCOSE (NO CHG), | e | 10:13 PM | operative wound, | procedure are in the | | POC | | PDT | initial encounter | results section. | + +--------+ + + + | APTT (ACT. PART. | Urgent | 08/07/2018 | | Results for this | | THROMBO TIME) | | 8:18 PM | | procedure are in the | | | | PDT | | results section. | + +--------+ + + + | CAPILLARY BLOOD | Routin | 08/07/2018 | Dehiscence of | Results for this | | GLUCOSE (NO CHG), | e | 6:43 PM | operative wound, | procedure are in the | | POC | | PDT | initial encounter | results section. | + +--------+ + + + | APTT (ACT. PART. | Urgent | 08/07/2018 | | Results for this | | THROMBO TIME) | | 12:40 PM | | procedure are in the | | | | PDT | | results section. | + +--------+ + + + | CAPILLARY BLOOD | Routin | 08/07/2018 | Dehiscence of | Results for this | | GLUCOSE (NO CHG), | e | 8:05 AM | operative wound, | procedure are in the | | POC | | PDT | initial encounter | results section. | + +--------+ + + + | CBC (HEMOGRAM) ONLY | Urgent | 08/07/2018 | | Results for this | | | | 6:15 AM | | procedure are in the | | | | PDT | | results section. | + +--------+ + + + | RENAL FUNCTION SET | Urgent | 08/07/2018 | | Results for this | | (NA,K,CL,CO2,BUN,CRE | | 6:15 AM | | procedure are in the | | AT,GLUC,CA,PHOS,ALB | | PDT | | results section. | | ) | | | | | + +--------+ + + + | CBC ONLY | Urgent | 08/07/2018 | | Results for this | | | | 6:15 AM | | procedure are in the | | | | PDT | | results section. | + +--------+ + + + | APTT (ACT. PART. | Urgent | 08/07/2018 | | Results for this | | THROMBO TIME) | | 6:15 AM | | procedure are in the | | | | PDT | | results section. | + +--------+ + + + | CAPILLARY BLOOD | Routin | 08/06/2018 | Dehiscence of | Results for this | | GLUCOSE (NO CHG), | e | 10:46 PM | operative wound, | procedure are in the | | POC | | PDT | initial encounter | results section. | + +--------+ + + + | APTT (ACT. PART. | Urgent | 08/06/2018 | | Results for this | | THROMBO TIME) | | 10:31 PM | | procedure are in the | | | | PDT | | results section. | + +--------+ + + + | CAPILLARY BLOOD | Routin | 08/06/2018 | Dehiscence of | Results for this | | GLUCOSE (NO CHG), | e | 6:30 PM | operative wound, | procedure are in the | | POC | | PDT | initial encounter | results section. | + +--------+ + + + | APTT (ACT. PART. | Urgent | 08/06/2018 | | Results for this | | THROMBO TIME) | | 4:27 PM | | procedure are in the | | | | PDT | | results section. | + +--------+ + + + | CAPILLARY BLOOD | Routin | 08/06/2018 | Dehiscence of | Results for this | | GLUCOSE (NO CHG), | e | 1:29 PM | operative wound, | procedure are in the | | POC | | PDT | initial encounter | results section. | + +--------+ + + + | TRANSFUSE RED CELLS, | Routin | 08/06/2018 | | | | LEUKOREDUCED | e | 1:04 PM | | | | | | PDT | | | + +--------+ + + + | APTT (ACT. PART. | Urgent | 08/06/2018 | | Results for this | | THROMBO TIME) | | 10:29 AM | | procedure are in the | | | | PDT | | results section. | + +--------+ + + + | ANTIBODY SCREEN | Routin | 08/06/2018 | | Results for this | | | e | 9:27 AM | | procedure are in the | | | | PDT | | results section. | + +--------+ + + + | TYPE AND SCREEN | Routin | 08/06/2018 | | Results for this | | | e | 9:27 AM | | procedure are in the | | | | PDT | | results section. | + +--------+ + + + | ABO & RH TYPE | Routin | 08/06/2018 | | Results for this | | | e | 9:27 AM | | procedure are in the | | | | PDT | | results section. | + +--------+ + + + | PRODUCT - RED CELLS | Routin | 08/06/2018 | | Results for this | | LEUKOREDUCED | e | 8:03 AM | | procedure are in the | | | | PDT | | results section. | + +--------+ + + + | CAPILLARY BLOOD | Routin | 08/06/2018 | Dehiscence of | Results for this | | GLUCOSE (NO CHG), | e | 7:54 AM | operative wound, | procedure are in the | | POC | | PDT | initial encounter | results section. | + +--------+ + + + | CBC (HEMOGRAM) ONLY | Urgent | 08/06/2018 | | Results for this | | | | 4:06 AM | | procedure are in the | | | | PDT | | results section. | + +--------+ + + + | RENAL FUNCTION SET | Urgent | 08/06/2018 | | Results for this | | (NA,K,CL,CO2,BUN,CRE | | 4:06 AM | | procedure are in the | | AT,GLUC,CA,PHOS,ALB | | PDT | | results section. | | ) | | | | | + +--------+ + + + | CBC ONLY | Urgent | 08/06/2018 | | Results for this | | | | 4:06 AM | | procedure are in the | | | | PDT | | results section. | + +--------+ + + + | APTT (ACT. PART. | Urgent | 08/06/2018 | | Results for this | | THROMBO TIME) | | 4:06 AM | | procedure are in the | | | | PDT | | results section. | + +--------+ + + + | CAPILLARY BLOOD | Routin | 08/05/2018 | Dehiscence of | Results for this | | GLUCOSE (NO CHG), | e | 11:05 PM | operative wound, | procedure are in the | | POC | | PDT | initial encounter | results section. | + +--------+ + + + | APTT (ACT. PART. | Urgent | 08/05/2018 | | Results for this | | THROMBO TIME) | | 8:42 PM | | procedure are in the | | | | PDT | | results section. | + +--------+ + + + | CAPILLARY BLOOD | Routin | 08/05/2018 | Dehiscence of | Results for this | | GLUCOSE (NO CHG), | e | 7:34 PM | operative wound, | procedure are in the | | POC | | PDT | initial encounter | results section. | + +--------+ + + + | APTT (ACT. PART. | Urgent | 08/05/2018 | | Results for this | | THROMBO TIME) | | 2:50 PM | | procedure are in the | | | | PDT | | results section. | + +--------+ + + + | CAPILLARY BLOOD | Routin | 08/05/2018 | Dehiscence of | Results for this | | GLUCOSE (NO CHG), | e | 9:55 AM | operative wound, | procedure are in the | | POC | | PDT | initial encounter | results section. | + +--------+ + + + | APTT (ACT. PART. | Urgent | 08/05/2018 | | Results for this | | THROMBO TIME) | | 6:40 AM | | procedure are in the | | | | PDT | | results section. | + +--------+ + + + | CBC (HEMOGRAM) ONLY | Urgent | 08/05/2018 | | Results for this | | | | 1:40 AM | | procedure are in the | | | | PDT | | results section. | + +--------+ + + + | VANCOMYCIN, TROUGH | Urgent | 08/05/2018 | | Results for this | | | | 1:40 AM | | procedure are in the | | | | PDT | | results section. | + +--------+ + + + | RENAL FUNCTION SET | Urgent | 08/05/2018 | | Results for this | | (NA,K,CL,CO2,BUN,CRE | | 1:40 AM | | procedure are in the | | AT,GLUC,CA,PHOS,ALB | | PDT | | results section. | | ) | | | | | + +--------+ + + + | CBC ONLY | Urgent | 08/05/2018 | | Results for this | | | | 1:40 AM | | procedure are in the | | | | PDT | | results section. | + +--------+ + + + | CARDIOLOGY | | 08/05/2018 | | Results for this | | | | 12:00 AM | | procedure are in the | | | | PDT | | results section. | + +--------+ + + + | CARDIOLOGY | | 08/05/2018 | | Results for this | | | | 12:00 AM | | procedure are in the | | | | PDT | | results section. | + +--------+ + + + | APTT (ACT. PART. | Urgent | 08/04/2018 | | Results for this | | THROMBO TIME) | | 11:51 PM | | procedure are in the | | | | PDT | | results section. | + +--------+ + + + | CAPILLARY BLOOD | Routin | 08/04/2018 | Dehiscence of | Results for this | | GLUCOSE (NO CHG), | e | 9:34 PM | operative wound, | procedure are in the | | POC | | PDT | initial encounter | results section. | + +--------+ + + + | CBC (HEMOGRAM) ONLY | Urgent | 08/04/2018 | | Results for this | | | | 6:54 PM | | procedure are in the | | | | PDT | | results section. | + +--------+ + + + | CBC ONLY | Urgent | 08/04/2018 | | Results for this | | | | 6:54 PM | | procedure are in the | | | | PDT | | results section. | + +--------+ + + + | TRANSFUSE RED CELLS, | Routin | 08/04/2018 | | | | LEUKOREDUCED | e | 6:38 PM | | | | | | PDT | | | + +--------+ + + + | CAPILLARY BLOOD | Routin | 08/04/2018 | Dehiscence of | Results for this | | GLUCOSE (NO CHG), | e | 5:50 PM | operative wound, | procedure are in the | | POC | | PDT | initial encounter | results section. | + +--------+ + + + | COAGULOPATHY PANEL | Routin | 08/04/2018 | | Results for this | | (INR,APTT,FIBRINOGEN | e | 4:25 PM | | procedure are in the | | ) | | PDT | | results section. | + +--------+ + + + | PRODUCT - RED CELLS | Routin | 08/04/2018 | | Results for this | | LEUKOREDUCED | e | 3:51 PM | | procedure are in the | | | | PDT | | results section. | + +--------+ + + + | CBC (HEMOGRAM) ONLY | Urgent | 08/04/2018 | | Results for this | | | | 3:15 PM | | procedure are in the | | | | PDT | | results section. | + +--------+ + + + | CBC ONLY | Urgent | 08/04/2018 | | Results for this | | | | 3:15 PM | | procedure are in the | | | | PDT | | results section. | + +--------+ + + + | CAPILLARY BLOOD | Routin | 08/04/2018 | Dehiscence of | Results for this | | GLUCOSE (NO CHG), | e | 12:11 PM | operative wound, | procedure are in the | | POC | | PDT | initial encounter | results section. | + +--------+ + + + | APTT (ACT. PART. | Urgent | 08/04/2018 | | Results for this | | THROMBO TIME) | | 10:18 AM | | procedure are in the | | | | PDT | | results section. | + +--------+ + + + | CAPILLARY BLOOD | Routin | 08/04/2018 | Dehiscence of | Results for this | | GLUCOSE (NO CHG), | e | 8:49 AM | operative wound, | procedure are in the | | POC | | PDT | initial encounter | results section. | + +--------+ + + + | PROCEDURE NOTE | Routin | 08/04/2018 | | Results for this | | | e | 6:48 AM | | procedure are in the | | | | PDT | | results section. | + +--------+ + + + | CAPILLARY BLOOD | Routin | 08/04/2018 | Dehiscence of | Results for this | | GLUCOSE (NO CHG), | e | 6:44 AM | operative wound, | procedure are in the | | POC | | PDT | initial encounter | results section. | + +--------+ + + + | CAPILLARY BLOOD | Routin | 08/04/2018 | Dehiscence of | Results for this | | GLUCOSE (NO CHG), | e | 4:42 AM | operative wound, | procedure are in the | | POC | | PDT | initial encounter | results section. | + +--------+ + + + | CAPILLARY BLOOD | Routin | 08/04/2018 | Dehiscence of | Results for this | | GLUCOSE (NO CHG), | e | 2:43 AM | operative wound, | procedure are in the | | POC | | PDT | initial encounter | results section. | + +--------+ + + + | CBC (HEMOGRAM) ONLY | Urgent | 08/04/2018 | | Results for this | | | | 1:45 AM | | procedure are in the | | | | PDT | | results section. | + +--------+ + + + | CBC ONLY | Urgent | 08/04/2018 | | Results for this | | | | 1:45 AM | | procedure are in the | | | | PDT | | results section. | + +--------+ + + + | APTT (ACT. PART. | Urgent | 08/04/2018 | | Results for this | | THROMBO TIME) | | 1:45 AM | | procedure are in the | | | | PDT | | results section. | + +--------+ + + + | CAPILLARY BLOOD | Routin | 08/04/2018 | Dehiscence of | Results for this | | GLUCOSE (NO CHG), | e | 1:39 AM | operative wound, | procedure are in the | | POC | | PDT | initial encounter | results section. | + +--------+ + + + | CAPILLARY BLOOD | Routin | 08/04/2018 | Dehiscence of | Results for this | | GLUCOSE (NO CHG), | e | 12:37 AM | operative wound, | procedure are in the | | POC | | PDT | initial encounter | results section. | + +--------+ + + + | CBC (HEMOGRAM) ONLY | Urgent | 08/03/2018 | | Results for this | | | | 11:43 PM | | procedure are in the | | | | PDT | | results section. | + +--------+ + + + | INR | Urgent | 08/03/2018 | | Results for this | | | | 11:43 PM | | procedure are in the | | | | PDT | | results section. | + +--------+ + + + | BASIC METABOLIC SET | Urgent | 08/03/2018 | | Results for this | | (NA, K, CL, TCO2, | | 11:43 PM | | procedure are in the | | BUN, CR, GLU, CA) | | PDT | | results section. | + +--------+ + + + | CBC ONLY | Urgent | 08/03/2018 | | Results for this | | | | 11:43 PM | | procedure are in the | | | | PDT | | results section. | + +--------+ + + + | CAPILLARY BLOOD | Routin | 08/03/2018 | Dehiscence of | Results for this | | GLUCOSE (NO CHG), | e | 11:35 PM | operative wound, | procedure are in the | | POC | | PDT | initial encounter | results section. | + +--------+ + + + | CAPILLARY BLOOD | Routin | 08/03/2018 | Dehiscence of | Results for this | | GLUCOSE (NO CHG), | e | 10:32 PM | operative wound, | procedure are in the | | POC | | PDT | initial encounter | results section. | + +--------+ + + + | CT HEAD WO CONTRAST | Urgent | 08/03/2018 | | Results for this | | | | 10:08 PM | | procedure are in the | | | | PDT | | results section. | + +--------+ + + + | INR | Urgent | 08/03/2018 | | Results for this | | | | 9:17 PM | | procedure are in the | | | | PDT | | results section. | + +--------+ + + + | CBC (HEMOGRAM) ONLY | Urgent | 08/03/2018 | | Results for this | | | | 9:10 PM | | procedure are in the | | | | PDT | | results section. | + +--------+ + + + | CAPILLARY BLOOD | Routin | 08/03/2018 | Dehiscence of | Results for this | | GLUCOSE (NO CHG), | e | 9:10 PM | operative wound, | procedure are in the | | POC | | PDT | initial encounter | results section. | + +--------+ + + + | CBC ONLY | Urgent | 08/03/2018 | | Results for this | | | | 9:10 PM | | procedure are in the | | | | PDT | | results section. | + +--------+ + + + | CAPILLARY BLOOD | Routin | 08/03/2018 | Dehiscence of | Results for this | | GLUCOSE (NO CHG), | e | 7:52 PM | operative wound, | procedure are in the | | POC | | PDT | initial encounter | results section. | + +--------+ + + + | OPERATION RECORD | | 08/03/2018 | | Results for this | | | | 6:27 PM | | procedure are in the | | | | PDT | | results section. | + +--------+ + + + | LATISSIMUS DORSI | Electi | 08/03/2018 | Dehiscence of | | | FREE FLAP, SPLIT | ve | 11:07 AM | operative wound, | | | THICKNESS SKIN GRAFT | Surgic | PDT | sequela | | | | al | | | | + +--------+ + + + +---+--------+ | | | | | Specia | | | l | | | Needs | | | ICU | | | POST-N | | | SICU | | | TEAM | +---+--------+ + +--------+ + +---+ | CRANIOPLASTY WITH | Electi | 08/03/2018 | Dehiscence of | | | FREE FLAP | ve | 11:07 AM | operative wound, | | | | Surgic | PDT | sequela | | | | al | | | | + +--------+ + +---+ +---+--------+ | | | | | Specia | | | l | | | Needs | | | ICU | | | POST-N | | | SICU | | | TEAM | +---+--------+ + +--------+ + + + | ANTIBODY SCREEN | Urgent | 08/03/2018 | | Results for this | | | | 10:50 AM | | procedure are in the | | | | PDT | | results section. | + +--------+ + + + | TYPE AND SCREEN | Urgent | 08/03/2018 | | Results for this | | | | 10:50 AM | | procedure are in the | | | | PDT | | results section. | + +--------+ + + + | ABO & RH TYPE | Urgent | 08/03/2018 | | Results for this | | | | 10:50 AM | | procedure are in the | | | | PDT | | results section. | + +--------+ + + + | CAPILLARY BLOOD | Routin | 08/03/2018 | Dehiscence of | Results for this | | GLUCOSE (NO CHG), | e | 10:43 AM | operative wound, | procedure are in the | | POC | | PDT | initial encounter | results section. | + +--------+ + + + | INTRAPROCEDURE | Routin | 08/03/2018 | | Results for this | | IMAGING | e | 9:56 AM | | procedure are in the | | | | PDT | | results section. | + +--------+ + + + | CARDIOLOGY | | 08/03/2018 | | Results for this | | | | 12:00 AM | | procedure are in the | | | | PDT | | results section. | + +--------+ + + + documented in this encounter Results OPERATION RECORD (08/11/2018 12:07 PM PDT) + + | Procedure Note | + + | Ata White MD - 08/11/2018 12:07 PM PDT Date of Service: 08/03/2018 Attending | | Surgeon:Ata White MD Addendum: This is an | | addendum to this young lady's surgical note. In my original note I had described 3 | | different vascular anastomoses. However, the complexity of the case was not fully | | described, and I am doing so here. The original vascular anastomosis was planned for the | | superficial temporal vessels. These were explored by dividing the skin and | | subcutaneous tissue, and then in the periparotid region, dissecting out the superficial | | temporal artery and vein. The vein was identified, and was of a good size. The artery | | was extremely small and was followed after tedious dissection down into the parotid | | gland. We went down as far as we felt comfortable, without identifying the facial | | nerve, and then had to abandon it as the vessel was so small. We then made an incision | | in the face, after dopplering of the facial vessels. These were identified and vascular | | anastomosis was performed in the neck to the facial artery and facial vein. The facial | | vein, as described, was standard. The facial artery was redone 3 times. Each time it | | was done under the operating microscope using Heifetz clips and microscopic control. We | | put tacking sutures at 180 degrees, sewed the anterior wall in a running continuous | | fashion, flipped it over and sewed the posterior wall. The 1st time it was sewn, it | | clotted after about 2 minutes. We then took down the artery and flushed out the clot | | and cleaned up the vessel. There was a small intimal tear. We cut back on the artery, | | and then redid the anastomosis in the same fashion. This time it lasted longer, but | | still continued to clot. We took down the anastomosis and inspected, and then the | | facial artery was then dissected down into the neck on top of the submandibular gland. | | To maintain that we had enough length, we freed it up to provide at least a centimeter | | or so more length. The artery to the left flap was cut back until we had good intima, | | and again the anastomosis was performed for the 3rd time. This time it was successful | | and did not need to be redone.Ata White, MELI/MODSNOWD: 08/14/2018 10:32:37DT: 08/14/2018 | | 10:59:02Job #: [id number] | + + OPERATION RECORD (08/11/2018 12:07 PM PDT) + + | Procedure Note | + + | Ata White MD - 08/11/2018 12:07 PM PDT Date of Service: 08/03/2018 Attending | | Surgeon:Ata White MD Utility Hand(s):Dr. Garcia | | Preoperative Diagnosis: Cranioplasty infection.Postoperative Diagnosis: Cranioplasty | | infection.Operative Procedure: Resection and removal of cranioplasty and replacement | | with cranioplasty mesh, a left latissimus dorsi myocutaneous free flap, a full-thickness | | skin graft, 35 x 5 cm, vascular anastomosis to the facial artery, which was redone 3 | | times because of clot, and to the facial vein Operative Note: This lady has | | had a cranioplasty which has become infected. It was felt it needed to be removed, so | | she was brought to the operating room and in conjunction with Neurosurgery was put to | | sleep, general anesthesia, prepped and draped in usual manner. A surgical pause was | | performed by the team. She then had her cranioplasty explanted through her incision. | | We examined her scalp wounds and felt that we needed to reconstruct the scalp because of | | the thinness and the lack of an ability to put things together tension-free, so we | | approached a left latissimus dorsi flap. The SPIDER device was brought in the operating | | room, was elevated and then her arm was put in the appropriate position. The anterior | | aspect of the latissimus muscle was visualized and a skin incision was performed. We | | harvested a 35 x 5 cm full-thickness skin graft from the anterior part of the incision. | | Suitable traction was placed and using a 10 blade in a subdermal fashion we elevated | | the full-thickness skin graft in this size. This was then put aside for later | | reconstruction. Incising down through skin and subcutaneous tissue onto the latissimus | | muscle, we elevated flaps superiorly and inferiorly and medially and laterally. We | | isolated the entire latissimus muscle and then divided it inferiorly and posteriorly. | | Hemostasis was obtained using cautery and a few clips. The vascular pedicle was | | identified and followed up into the axilla. We then had the muscle entirely hinged on | | the humeral head and the vascular pedicle. The vascular pedicle would follow. We now | | had 1 single vena comitans, good size artery and so we took off the humeral head and | | ligated the vascular pedicle, and the flap was sent up to head and neck region. The back | | was closed after elevating flap so that we could be tension-free. We excised the | | full-thickness skin graft donor site and closed the back with 2-0 Vicryl pops, 5-0 | | Caprosyn, 2 flat 10 Ashutosh-Story drains were placed. In the head and neck region we | | explored in the right superficial temporal vessels. A great vein, but the artery was | | quite small, never really bled well. We then went down to the facial vessels, | | identified the facial artery, facial vein and through a small incision just inferior to | | the mandible. The ramus nerve was identified and preserved throughout the entire | | procedure. After raising the subplatysmal flaps we had good length on the facial artery | | and facial vein. The flap then was brought up into the head and neck region. It was | | laid in underneath the scalp incision anteriorly and posteriorly and held in 6 sutures | | with 3-0 Vicryl. The skin incisions were closed on top of the latissimus flap with 3-0 | | Vicryl. The defect of 35 x 5 cm was reconstructed using the full-thickness skin graft. | | It was brought onto the field and secured using 5-0 Caprosyn along the entire length of | | the incision site. The pie-crusting was performed and we then proceeded with the | | vascular anastomosis. Through a tunnel in the neck we fed the vascular pedicle down into | | the facial vessels. A microscope was brought in, Heifetz clips applied to the facial | | vein and facial artery. The facial artery was sewn 2 times and each time it clotted. | | We removed the clot, cut back the vessels and on the third time under the microscope we | | re-did the anastomosis. 180-degree tacking sutures were placed, retraction applied | | laterally and the anterior wall was sewn in a running continuous fashion. Once this had | | been done we flipped the artery over, did the posterior wall and then tied it | | laterally. The vein was measured and a 4.0 collection support specialist was utilized. We put the 2 ends in | | through the coupling device's holes and then pegged them to the spikes and closed the | | device. This gave us closure and the device was removed. The Heifetz clips were | | removed and on the third try with the artery we had excellent flow and maintained good | | flow till the end of the case. A [employer] TV Doppler was placed and there was excellent | | flow till the end of the case. The neck wound had a Elvin drain placed and was | | closed using 3-0 Vicryl, 5-0 Caprosyn. The rest of the skin wounds on the head had been | | closed as described above. The patient tolerated this well, was woken up, extubated and | | sent out to the recovery room. The flap was viable at the end of the procedure.Ata | | MELI White/KATHERINED: 08/11/2018 14:18:44DT: 08/11/2018 14:50:31Job #: [id number] | + + CBC (HEMOGRAM) ONLY (08/10/2018 5:28 AM PDT) + + + + + + | Component | Value | Ref Range | Performed | Pathologist | | | | | At | Signature | + + + + + + | WHITE CELL | 10.01 | 3.50 - 10.80 | [facility] | | | COUNT | | K/cu mm | LABORATORY | | | | | | SERVICES, | | | | | | CORE | | + + + + + + | RED CELL | 2.97 (L) | 4.00 - 5.20 | [facility] | | | COUNT | | M/cu mm | LABORATORY | | | | | | SERVICES, | | | | | | CORE | | + + + + + + | HEMOGLOBIN | 9.4 (L) | 12.0 - 16.0 | [facility] | | | | | g/dL | LABORATORY | | | | | | SERVICES, | | | | | | CORE | | + + + + + + | HEMATOCRIT | 29.0 (L) | 36.0 - 46.0 % | [facility] | | | | | | LABORATORY | | | | | | SERVICES, | | | | | | CORE | | + + + + + + | MCV | 97.6 | 80.0 - 100.0 fL | [facility] | | | | | | LABORATORY | | | | | | SERVICES, | | | | | | CORE | | + + + + + + | MCHC | 32.4 | 32.0 - 36.0 | [facility] | | | | | g/dL | LABORATORY | | | | | | SERVICES, | | | | | | CORE | | + + + + + + | RDW SD | 51.3 (H) | 35.1 - 46.3 fL | [facility] | | | | | | LABORATORY | | | | | | SERVICES, | | | | | | CORE | | + + + + + + | PLATELET | 223 | 150 - 400 K/cu | [facility] [...] | + + + + + | [facility] | [address] | [place] [address] | | | SERVICES, CORE | [address] | | | + + + + + RENAL FUNCTION SET (NA,K,CL,CO2,BUN,CREAT,GLUC,CA,PHOS,ALB ) (08/10/2018 5:28 AM PDT) + +---------+ + + + | Component | Value | Ref Range | Performed | Pathologist | | | | | At | Signature | + +---------+ + + + | GLUCOSE, | 98 | 70 - 99 mg/dL | [facility] [...] +---------+ + + + | CREATININE | 0.72 | 0.60 - 1.10 | [facility] | | | PLASMA | | mg/dL | LABORATORY | | | (LAB) | | | SERVICES, | | | | | | CORE | | + +---------+ + + + | EGFR | >60 | >60 mL/min | [facility] | | | - | | | LABORATORY | | | ALGERIAN | | | SERVICES, | | | | | | CORE | | + +---------+ + + + | EGFR NON | >60 | >60 mL/min | [facility] | | | -ALEJANDRINA | | | LABORATORY | | | RICAN | | | SERVICES, | | | | | | CORE | | + +---------+ + + + | SODIUM, | 138 | 136 - 145 | [facility] | [...] +---------+ + + + | CALCIUM(ALB | 9.4 | 8.6 - 10.2 | [facility] | | | CORRECTED) | | mg/dL | LABORATORY | | | | | | SERVICES, | | | | | | CORE | | + +---------+ + + + | ALBUMIN, | 2.4 (L) | 3.5 - 4.7 g/dL | [facility] | | | PLASMA | | | LABORATORY | | | (LAB) | | | SERVICES, | | | | | | CORE | | + +---------+ + + + | PHOSPHORUS, | 4.4 [...] + | ANION GAP | 7 | 4 - 11 mmol/L | [facility] | | | | | | LABORATORY | | | | | | SERVICES, | | | | | | CORE | | + +---------+ + + + | ANION | 11 | 4 - 11 mmol/L | [facility] [...] MDRD equation recommended by the National | [facility] | | Kidney Disease Education Program. Estimated [...] | + + + + + | [facility] | [address] | [place] [address] | | | SERVICES, CORE | [address] | | | + + + + + CAPILLARY BLOOD GLUCOSE (NO CHG), POC (08/09/2018 10:27 AM PDT) + +---------+ + + + | Component | Value | Ref Range | Performed | Pathologist | | | | | At | Signature | + +---------+ + + + | BLOOD | 112 (H) | 60 - 99 mg/dL | [facility] - | | | GLUCOSE, | | [...] | [facility] | [address] | [place], [place] | | | MISTY POINT OF CARE | [address] | [address] | | | TESTS | | | | + + + + + CBC (HEMOGRAM) ONLY (08/09/2018 5:43 AM PDT) + + + + + + | Component | Value | Ref Range | Performed | Pathologist | | | | | At | Signature | + + + + + + | WHITE CELL | 9.54 | 3.50 - 10.80 | [facility] | | | COUNT | | K/cu mm | LABORATORY | | | | | | SERVICES, | | | | | | CORE | | + + + + + + | RED CELL | 2.92 (L) | 4.00 - 5.20 | [facility] | | | COUNT | | M/cu mm | LABORATORY | | | | | | SERVICES, | | | | | | CORE | | + + + + + + | HEMOGLOBIN | 9.2 (L) | 12.0 - 16.0 | [facility] | | | | | g/dL | LABORATORY | | | | | | SERVICES, | | | | | | CORE | | + + + + + + | HEMATOCRIT | 28.3 (L) | 36.0 - 46.0 % | [facility] | | | | | | LABORATORY | | | | | | SERVICES, | | | | | | CORE | | + + + + + + | MCV | 96.9 | 80.0 - 100.0 fL | [facility] | | | | | | LABORATORY | | | | | | SERVICES, | | | | | | CORE | | + + + + + + | MCHC | 32.5 | 32.0 - 36.0 | [facility] | | | | | g/dL | LABORATORY | | | | | | SERVICES, | | | | | | CORE | | + + + + + + | RDW SD | 50.8 (H) | 35.1 - 46.3 fL | [facility] | | | | | | LABORATORY | | | | | | SERVICES, | | | | | | CORE | | + + + + + + | PLATELET | 196 | 150 - 400 K/cu | [facility] [...] + + | [facility] | [address] | [place] [address] | | | SERVICES, CORE | [address] | | | + + + + + RENAL FUNCTION SET (NA,K,CL,CO2,BUN,CREAT,GLUC,CA,PHOS,ALB ) (08/09/2018 5:43 AM PDT) + +---------+ + + + | Component | Value | Ref Range | Performed | Pathologist | | | | | At | Signature | + +---------+ + + + | GLUCOSE, | 107 (H) | 70 - 99 mg/dL | [facility] [...] +---------+ + + + | CREATININE | 0.71 | 0.60 - 1.10 | [facility] | | | PLASMA | | mg/dL | LABORATORY | | | (LAB) | | | SERVICES, | | | | | | CORE | | + +---------+ + + + | EGFR | >60 | >60 mL/min | [facility] | | | - | | | LABORATORY | | | ALGERIAN | | | SERVICES, | | | [...] +---------+ + + + | POTASSIUM, | 4.4 | 3.4 - 5.0 | [facility] | [...] + | TOTAL CO2, | 25 | 21 - 32 mmol/L | [facility] [...] +---------+ + + + | CALCIUM(ALB | 9.5 | 8.6 - 10.2 | [facility] | | | CORRECTED) | | mg/dL | LABORATORY | | | | | | SERVICES, | | | | | | CORE | | + +---------+ + + + | ALBUMIN, | 2.3 (L) | 3.5 - 4.7 g/dL | [facility] | | | PLASMA | | | LABORATORY | | | (LAB) | | | SERVICES, | | | | | | CORE | | + +---------+ + + + | PHOSPHORUS, | 4.1 | 2.4 - 4.7 mg/dL | [facility] [...] + | ANION GAP | 6 | 4 - 11 mmol/L | [facility] | | | | | | LABORATORY | | | | | | SERVICES, | | | | | | CORE | | + +---------+ + + + | ANION | 10 | 4 - 11 mmol/L | [facility] [...] MDRD equation recommended by the National | [facility] | | Kidney Disease Education Program. Estimated [...] | + + + + + | [facility] | [address] | [place] [address] | | | JOHNSON, RYAN | [address] | | | + + + + + CAPILLARY BLOOD GLUCOSE (NO CHG), POC (08/08/2018 9:34 PM PDT) + +---------+ + + + | Component | Value | Ref Range | Performed | Pathologist | | | | | At | Signature | + +---------+ + + + | BLOOD | 137 (H) | 60 - 99 mg/dL | [facility] - | | | GLUCOSE, | | [...] [facility] | [address] | [place], [place] | | | [facility]AY OF [facility] | [facility] | [address] | | | TESTS | | | | + + + + + CAPILLARY BLOOD GLUCOSE (NO CHG), POC (08/08/2018 5:33 PM PDT) + +---------+ + + + | Component | Value | Ref Range | Performed | Pathologist | | | | | At | Signature | + +---------+ + + + | BLOOD | 117 (H) | 60 - 99 mg/dL | [facility] - | | | GLUCOSE, | | | [facility] | | | POC | | | [place], POINT | | | | | | OF [...] | [facility]HEL[facility] | [address] | [place], [place] | | | MISTY POINT OF CARE | [address] | [address] | | | TESTS | | | | + + + + + CAPILLARY BLOOD GLUCOSE (NO CHG), POC (08/08/2018 8:00 AM PDT) + +---------+ + + + | Component | Value | Ref Range | Performed | Pathologist | | | | | At | Signature | + +---------+ + + + | BLOOD | 105 (H) | 60 - 99 mg/dL | [...] + + + + | [facility] | [address] | [place], [place] | | | [facility] | [facility] | [address] | | | TESTS | | | | + + + + + CBC (HEMOGRAM) ONLY (08/08/2018 6:40 AM PDT) + + + + + + | Component | Value | Ref Range | Performed | Pathologist | | | | | At | Signature | + + + + + + | WHITE CELL | 9.51 | 3.50 - 10.80 | [facility] | | | COUNT | | K/cu mm | LABORATORY | | | | | | SERVICES, | | | | | | CORE | | + + + + + + | RED CELL | 3.00 (L) | 4.00 - 5.20 | [facility] | | | COUNT | | M/cu mm | LABORATORY | | | | | | SERVICES, | | | | | | CORE | | + + + + + + | HEMOGLOBIN | 9.6 (L) | 12.0 - 16.0 | [facility] | | | | | g/dL | LABORATORY | | | | | | SERVICES, | | | | | | CORE | | + + + + + + | HEMATOCRIT | 29.0 (L) | 36.0 - 46.0 % | [facility] | | | | | | LABORATORY | | | | | | SERVICES, | | | | | | CORE | | + + + + + + | MCV | 96.7 | 80.0 - 100.0 fL | [facility] | | | | | | LABORATORY | | | | | | SERVICES, | | | | | | CORE | | + + + + + + | MCHC | 33.1 | 32.0 - 36.0 | [facility] | | | | | g/dL | LABORATORY | | | | | | SERVICES, | | | | | | CORE | | + + + + + + | RDW SD | 51.7 (H) | 35.1 - 46.3 fL | [facility] | | | | | | LABORATORY | | | | | | SERVICES, | | | | | | CORE | | + + + + + + | PLATELET | 183 | 150 - 400 K/cu | [facility] [...] | + + + + + | [facility] | [address] | [place] [address] | | | RYAN ORNELAS | [address] | | | + + + + + APTT (ACT. PART. THROMBO TIME) (08/08/2018 6:40 AM PDT) + + + + + + | Component | Value | Ref Range | Performed | Pathologist | | | | | At | Signature | + + + + + + | APTT | 69.2 (H) | 26.0 - 36.0 | [facility] | [...] | + + + + + | [facility] | [address] | [place] [address] | | | RYAN ORNELAS | [address] | | | + + + + + RENAL FUNCTION SET (NA,K,CL,CO2,BUN,CREAT,GLUC,CA,PHOS,ALB ) (08/08/2018 6:40 AM PDT) + +---------+ + + + | Component | Value | Ref Range | Performed | Pathologist | | | | | At | Signature | + +---------+ + + + | GLUCOSE, | 102 (H) | 70 - 99 mg/dL | [facility] | | | PLASMA | | | LABORATORY | | | (LAB) | | | SERVICES, | | | | | | CORE | | + +---------+ + + + | BUN, PLASMA | 6 | 6 - 20 mg/dL | [facility] | | | (LAB) | | | LABORATORY | | | | | | SERVICES, | | | | | | CORE | | + +---------+ + + + | CREATININE | 0.68 | 0.60 - 1.10 | [facility] | | | PLASMA | | mg/dL | LABORATORY | | | (LAB) | | | SERVICES, | | | | | | CORE | | + +---------+ + + + | EGFR | >60 | >60 mL/min | [facility] | | | - | | | LABORATORY | | | ALGERIAN | | | SERVICES, | | | | | | CORE | | + +---------+ + + + | EGFR NON | >60 | >60 mL/min | [facility] | | | -[facility]DR[facility] | | | LABORATORY | | | RICAN | | | SERVICES, | | | | | | CORE | | + +---------+ + + + | SODIUM, | 139 | 136 - 145 | [facility] | | | PLASMA | | mmol/L | LABORATORY | | | (LAB) | | | SERVICES, | | | | | | CORE | | + +---------+ + + + | POTASSIUM, | 4.1 | 3.4 - 5.0 | [facility] | | | PLASMA | | mmol/L | LABORATORY | | | (LAB) | | | SERVICES, | | | | | | CORE | | + +---------+ + + + | CHLORIDE, | 109 (H) | 97 - 108 mmol/L | [...] +---------+ + + + | CALCIUM, | 8.0 (L) | 8.6 - 10.2 | [facility] | | | PLASMA | | mg/dL | LABORATORY | | | (LAB) | | | SERVICES, | | | | | | CORE | | + +---------+ + + + | CALCIUM(ALB | 9.3 | 8.6 - 10.2 | [facility] | | | CORRECTED) | | mg/dL | LABORATORY | | | | | | SERVICES, | | | | | | CORE | | + +---------+ + + + | ALBUMIN, | 2.4 (L) | 3.5 - 4.7 g/dL | [...] MDRD equation recommended by the National | [facility] | | Kidney Disease Education Program. Estimated [...] | + + + + + | [facility] | [address] | [place] [address] | | | SERVICES, CORE | [address] | | | + + + + + APTT (ACT. PART. THROMBO TIME) (08/08/2018 2:02 AM PDT) + + + + + + | Component | Value | Ref Range | Performed | Pathologist | | | | | At | Signature | + + + + + + | APTT | 63.4 (H) | 26.0 - 36.0 | [facility] | [...] - 120) sec Heparin levels of | SERVICES, CORE | | 0.35 - 0.7 U/mL | | + + + + + + + + | Performing | Address | City/State/Zipcode | Phone Number | | Organization | | | | + + + + + | [facility] | [address] | [place] [address] | | | SERVICES, CORE | [address] | | | + + + + + CAPILLARY BLOOD GLUCOSE (NO CHG), POC (08/07/2018 10:13 PM PDT) + +---------+ + + + | Component | Value | Ref Range | Performed | Pathologist | | | | | At | Signature | + +---------+ + + + | BLOOD | 149 (H) | 60 - 99 mg/dL | [...] [facility] | [address] | [place], [place] | | | [facility] | [address] | [address] | | | TESTS | | | | + + + + + APTT (ACT. PART. THROMBO TIME) (08/07/2018 8:18 PM PDT) + + + + + + | Component | Value | Ref Range | Performed | Pathologist | | | | | At | Signature | + + + + + + | APTT | 50.4 (H) | 26.0 - 36.0 | [facility] | [...] | + + + + + | [facility] | [address] | [place] [address] | | | RYAN ORNELAS | [address] | | | + + + + + CAPILLARY BLOOD GLUCOSE (NO CHG), POC (08/07/2018 6:43 PM PDT) + +---------+ + + + | Component | Value | Ref Range | Performed | Pathologist | | | | | At | Signature | + +---------+ + + + | BLOOD | 133 (H) | 60 - 99 mg/dL | [...] + + + + | [facility] | [address] | [place], [place] | | | MISTY POINT OF CARE | [address] | [address] | | | TESTS | | | | + + + + + APTT (ACT. PART. THROMBO TIME) (08/07/2018 12:40 PM PDT) + + + + + + | Component | Value | Ref Range | Performed | Pathologist | | | | | At | Signature | + + + + + + | APTT | 48.4 (H) | 26.0 - 36.0 | [facility] | [...] - 120) sec Heparin levels of | SERVICES, CORE | | 0.35 - 0.7 U/mL | | + + + + + + + + | Performing | Address | City/State/Zipcode | Phone Number | | Organization | | | | + + + + + | [facility] | [address] | [place] [address] | | | SERVICES, CORE | [address] | | | + + + + + CAPILLARY BLOOD GLUCOSE (NO CHG), POC (08/07/2018 8:05 AM PDT) + +---------+ + + + | Component | Value | Ref Range | Performed | Pathologist | | | | | At | Signature | + +---------+ + + + | BLOOD | 132 (H) | 60 - 99 mg/dL | [facility] - | | | GLUCOSE, | | [...] | [facility]HEL[facility] | [address] | [place], [place] | | | [facility] | [address] | [address] | | | TESTS | | | | + + + + + CBC (HEMOGRAM) ONLY (08/07/2018 6:15 AM PDT) + + + + + + | Component | Value | Ref Range | Performed | Pathologist | | | | | At | Signature | + + + + + + | WHITE CELL | 9.03 | 3.50 - 10.80 | [facility] | | | COUNT | | K/cu mm | LABORATORY | | | | | | SERVICES, | | | | | | CORE | | + + + + + + | RED CELL | 2.88 (L) | 4.00 - 5.20 | [facility] | | | COUNT | | M/cu mm | LABORATORY | | | | | | SERVICES, | | | | | | CORE | | + + + + + + | HEMOGLOBIN | 9.1 (L) | 12.0 - 16.0 | [facility] | | | | | g/dL | LABORATORY | | | | | | SERVICES, | | | | | | CORE | | + + + + + + | HEMATOCRIT | 27.2 (L) | 36.0 - 46.0 % | [...] + + + + | MCHC | 33.5 | 32.0 - 36.0 | [facility] | | | | | g/dL | LABORATORY | | | | | | SERVICES, | | | | | | CORE | | + + + + + + | RDW SD | 50.4 (H) | 35.1 - 46.3 fL | [facility] | | | | | | LABORATORY | | | | | | SERVICES, | | | | | | CORE | | + + + + + + | PLATELET | 144 (L) | 150 - 400 K/cu | [facility] [...] + + | [facility] | [address] | [place] [address] | | | SERVICES, CORE | [address] | | | + + + + + APTT (ACT. PART. THROMBO TIME) (08/07/2018 6:15 AM PDT) + + + + + + | Component | Value | Ref Range | Performed | Pathologist | | | | | At | Signature | + + + + + + | APTT | 58.6 (H) | 26.0 - 36.0 | [facility] | [...] - 120) sec Heparin levels of | SERVICES, CORE | | 0.35 - 0.7 U/mL | | + + + + + + + + | Performing | Address | City/State/Zipcode | Phone Number | | Organization | | | | + + + + + | [facility] | [address] | [place] [address] | | | SERVICES, CORE | [address] | | | + + + + + RENAL FUNCTION SET (NA,K,CL,CO2,BUN,CREAT,GLUC,CA,PHOS,ALB ) (08/07/2018 6:15 AM PDT) + +---------+ + + + | Component | Value | Ref Range | Performed | Pathologist | | | | | At | Signature | + +---------+ + + + | GLUCOSE, | 101 (H) | 70 - 99 mg/dL | [facility] | | | PLASMA | | | LABORATORY | | | (LAB) | | | SERVICES, | | | | | | CORE | | + +---------+ + + + | BUN, PLASMA | 11 | 6 - 20 mg/dL | [facility] | | | (LAB) | | | LABORATORY | | | | | | SERVICES, | | | | | | CORE | | + +---------+ + + + | CREATININE | 0.71 | 0.60 - 1.10 | [facility] | | | PLASMA | | mg/dL | LABORATORY | | | (LAB) | | | SERVICES, | | | | | | CORE | | + +---------+ + + + | EGFR | >60 | >60 mL/min | [facility] | | | - | | | LABORATORY | | | ALGERIAN | | | SERVICES, | | | [...] +---------+ + + + | POTASSIUM, | 4.0 | 3.4 - 5.0 | [facility] | | | PLASMA | | mmol/L | LABORATORY | | | (LAB) | | | SERVICES, | | | | | | CORE | | + +---------+ + + + | CHLORIDE, | 113 (H) | 97 - 108 mmol/L | [facility] | | | PLASMA | | | LABORATORY | | | (LAB) | | | SERVICES, | | | | | | CORE | | + +---------+ + + + | TOTAL CO2, | 25 | 21 - 32 mmol/L | [facility] [...] +---------+ + + + | CALCIUM(ALB | 9.1 | 8.6 - 10.2 | [facility] | | | CORRECTED) | | mg/dL | LABORATORY | | | | | | SERVICES, | | | | | | CORE | | + +---------+ + + + | ALBUMIN, | 2.3 (L) | 3.5 - 4.7 g/dL | [facility] | | | PLASMA | | | LABORATORY | | | (LAB) | | | SERVICES, | | | | | | CORE | | + +---------+ + + + | PHOSPHORUS, | 3.0 | 2.4 - 4.7 mg/dL | [facility] [...] MDRD equation recommended by the National | [facility] | | Kidney Disease Education Program. Estimated [...] | + + + + + | [facility] | [address] | [place] [address] | | | RYAN ORNELAS | [address] | | | + + + + + CAPILLARY BLOOD GLUCOSE (NO CHG), POC (08/06/2018 10:46 PM PDT) + +---------+ + + + | Component | Value | Ref Range | Performed | Pathologist | | | | | At | Signature | + +---------+ + + + | BLOOD | 130 (H) | 60 - 99 mg/dL | [facility] - | | | GLUCOSE, | | [...] + + + + + | [facility] | [address] | [place], [place] | | | [facility] | [address] | [address] | | | TESTS | | | | + + + + + APTT (ACT. PART. THROMBO TIME) (08/06/2018 10:31 PM PDT) + + + + + + | Component | Value | Ref Range | Performed | Pathologist | | | | | At | Signature | + + + + + + | APTT | 71.8 (H) | 26.0 - 36.0 | [facility] | [...] - 120) sec Heparin levels of | SERVICES, CORE | | 0.35 - 0.7 U/mL | | + + + + + + + + | Performing | Address | City/State/Zipcode | Phone Number | | Organization | | | | + + + + + | [facility] | [address] | [place] [address] | | | SERVICES, CORE | [address] | | | + + + + + CAPILLARY BLOOD GLUCOSE (NO CHG), POC (08/06/2018 6:30 PM PDT) + +---------+ + + + | Component | Value | Ref Range | Performed | Pathologist | | | | | At | Signature | + +---------+ + + + | BLOOD | 127 (H) | 60 - 99 mg/dL | [...] | [facility] | [address] | [place], [place] | | | [facility] [place] | [facility] | [address] | | | TESTS | | | | + + + + + APTT (ACT. PART. THROMBO TIME) (08/06/2018 4:27 PM PDT) + + + + + + | Component | Value | Ref Range | Performed | Pathologist | | | | | At | Signature | + + + + + + | APTT | 58.5 (H) | 26.0 - 36.0 | [facility] | [...] | + + + + + | [facility] | [address] | [place] [address] | | | RYAN ORNELAS | [address] | | | + + + + + CAPILLARY BLOOD GLUCOSE (NO CHG), POC (08/06/2018 1:29 PM PDT) + +---------+ + + + | Component | Value | Ref Range | Performed | Pathologist | | | | | At | Signature | + +---------+ + + + | BLOOD | 114 (H) | 60 - 99 mg/dL | [facility] | | | GLUCOSE, | | | [facility] | | | POC | | | [place], POINT | | | | | | OF [...] [facility] | [address] | [place], [place] | | | MISTY POINT OF CARE | [facility] | [address] | | | TESTS | | | | + + + + + APTT (ACT. PART. THROMBO TIME) (08/06/2018 10:29 AM PDT) + + + + + + | Component | Value | Ref Range | Performed | Pathologist | | | | | At | Signature | + + + + + + | APTT | 40.2 (H) | 26.0 - 36.0 | [facility] | [...] - 120) sec Heparin levels of | SERVICES, CORE | | 0.35 - 0.7 U/mL | | + + + + + + + + | Performing | Address | City/State/Zipcode | Phone Number | | Organization | | | | + + + + + | [facility] | [address] | [place] [address] | | | SERVICES, CORE | [address] | | | + + + + + ANTIBODY SCREEN (08/06/2018 9:27 AM PDT) + + + + + + | Component | Value | Ref Range | Performed | Pathologist | | | | | At | Signature | + + + + + + | Antibody | Negative | | [facility] | | | Screen | | | LABORATORY | | | | | | SERVICES, | | | | | | TRANSFUSION | | | | | | MEDICINE | | + + + + + + + + | Specimen | + + | Blood - Blood | | (substance) | + + + + + + + | Performing | Address | City/State/Zipcode | Phone Number | | Organization | | | | + + + + + | [facility] | [address] | [place] [address] | | | SERVICES, | [address] | | | | TRANSFUSION MEDICINE | | | | + + + + + ABO & RH TYPE (08/06/2018 9:27 AM PDT) + + + + + + | Component | Value | Ref Range | Performed | Pathologist | | | | | At | Signature | + + + + + + | ABO Group | O | | [facility] | | | | | | LABORATORY | | | | | | SERVICES, | | | | | | TRANSFUSION | | | | | | MEDICINE | | + + + + + + | Rh Type | Negative | | [facility] | | | | | | LABORATORY | | | | | | SERVICES, | | | | | | TRANSFUSION | | | | | | MEDICINE | | + + + + + + + + | Specimen | + + | Blood - Blood | | (substance) | + + + + + + + | Performing | Address | City/State/Zipcode | Phone Number | | Organization | | | | + + + + + | [facility] | [address] | [place] [address] | | | SERVICES, | [address] | | | | TRANSFUSION MEDICINE | | | | + + + + + PRODUCT - RED CELLS LEUKOREDUCED (08/06/2018 8:03 AM PDT) + + + + + + | Component | Value | Ref Range | Performed | Pathologist | | | | | At | Signature | + + + + + + | PRODUCT | -1 RED BLOOD CELL | | [facility] | | | DESCRIPTION | ADENINE-SALINE ADDED | | LABORATORY | | | | LEUKOCYTE | | SERVICES, | | | | | | TRANSFUSION | | | | | | MEDICINE | | + + + + + + | PRODUCT | [id number] | | [facility] | | | UNIT # | | | LABORATORY | | | | | | SERVICES, | | | | | | TRANSFUSION | | | | | | MEDICINE | | + + + + + + | UNIT ABO | O | | [facility] | | | | | | LABORATORY | | | | | | SERVICES, | | | | | | TRANSFUSION | | | | | | MEDICINE | | + + + + + + | UNIT RH | NEG | | [facility] | | | | | | LABORATORY | | | | | | SERVICES, | | | | | | TRANSFUSION | | | | | | MEDICINE | | + + + + + + | STATUS OF | Presumed Transfused | | [facility] | | | UNIT | | | LABORATORY | | | | | | SERVICES, | | | | | | TRANSFUSION | | | | | | MEDICINE | | + + + + + + | EXPIRATION | [id number] | | [facility] | | | DATE | | | LABORATORY | | | | | | SERVICES, | | | | | | TRANSFUSION | | | | | | MEDICINE | | + + + + + + | BLOOD TYPE | [id number] | | [facility] | | | BARCODE | | | LABORATORY | | | | | | SERVICES, | | | | | | TRANSFUSION | | | | | | MEDICINE | | + + + + + + | BLOOD | [id number] | | [facility] | | | PRODUCT | | | LABORATORY | | | CODE | | | SERVICES, | | | | | | TRANSFUSION | | | | | | MEDICINE | | + + + + + + + + | Specimen | + + | | + + + + + + + | Performing | Address | City/State/Zipcode | Phone Number | | Organization | | | | + + + + + | [facility] | [address] | [place] [address] | | | SERVICES, | [address] | | | | TRANSFUSION MEDICINE | | | | + + + + + CAPILLARY BLOOD GLUCOSE (NO CHG), POC (08/06/2018 7:54 AM PDT) + +---------+ + + + | Component | Value | Ref Range | Performed | Pathologist | | | | | At | Signature | + +---------+ + + + | BLOOD | 115 (H) | 60 - 99 mg/dL | [facility] - | | | GLUCOSE, | | [...] + + + + | [facility] | [address] | [place], [place] | | | [facility] | [facility] | [id number] | | | TESTS | | | | + + + + + CBC (HEMOGRAM) ONLY (08/06/2018 4:06 AM PDT) + + + + + + | Component | Value | Ref Range | Performed | Pathologist | | | | | At | Signature | + + + + + + | WHITE CELL | 9.10 | 3.50 - 10.80 | [facility] | | | COUNT | | K/cu mm | LABORATORY | | | | | | SERVICES, | | | | | | CORE | | + + + + + + | RED CELL | 2.35 (L) | 4.00 - 5.20 | [facility] | | | COUNT | | M/cu mm | LABORATORY | | | | | | SERVICES, | | | | | | CORE | | + + + + + + | HEMOGLOBIN | 7.5 (L) | 12.0 - 16.0 | [facility] | | | | | g/dL | LABORATORY | | | | | | SERVICES, | | | | | | CORE | | + + + + + + | HEMATOCRIT | 22.5 (L) | 36.0 - 46.0 % | [facility] | | | | | | LABORATORY | | | | | | SERVICES, | | | | | | CORE | | + + + + + + | MCV | 95.7 | 80.0 - 100.0 fL | [facility] | | | | | | LABORATORY | | | | | | SERVICES, | | | | | | CORE | | + + + + + + | MCHC | 33.3 | 32.0 - 36.0 | [facility] | | | | | g/dL | LABORATORY | | | | | | SERVICES, | | | | | | CORE | | + + + + + + | RDW SD | 50.1 (H) | 35.1 - 46.3 fL | [facility] | | | | | | LABORATORY | | | | | | SERVICES, | | | | | | CORE | | + + + + + + | PLATELET | 131 (L) | 150 - 400 K/cu | [facility] | | | COUNT | | mm | LABORATORY | | | | | | SERVICES, | | | | | | CORE | | + + + + + + | MPV | 10.7 | 9.7 - 12.3 fL | [facility] [...] + | [facility] | [address] | [place] [address] | | | SERVICES, CORE | [address] | | | + + + + + APTT (ACT. PART. THROMBO TIME) (08/06/2018 4:06 AM PDT) + + + + + + | Component | Value | Ref Range | Performed | Pathologist | | | | | At | Signature | + + + + + + | APTT | 79.0 (H) | 26.0 - 36.0 | [facility] | [...] - 120) sec Heparin levels of | SERVICES, CORE | | 0.35 - 0.7 U/mL | | + + + + + + + + | Performing | Address | City/State/Zipcode | Phone Number | | Organization | | | | + + + + + | [facility] | [address] | [place] [address] | | | SERVICES, CORE | [address] | | | + + + + + RENAL FUNCTION SET (NA,K,CL,CO2,BUN,CREAT,GLUC,CA,PHOS,ALB ) (08/06/2018 4:06 AM PDT) + +---------+ + + + | Component | Value | Ref Range | Performed | Pathologist | | | | | At | Signature | + +---------+ + + + | GLUCOSE, | 92 | 70 - 99 mg/dL | [facility] | | | PLASMA | | | LABORATORY | | | (LAB) | | | SERVICES, | | | | | | CORE | | + +---------+ + + + | BUN, PLASMA | 11 | 6 - 20 mg/dL | [facility] [...] | | | LABORATORY | | | ALGERIAN | | | SERVICES, | | | [...] +---------+ + + + | POTASSIUM, | 4.1 | 3.4 - 5.0 | [facility] | | | PLASMA | | mmol/L | LABORATORY | | | (LAB) | | | SERVICES, | | | | | | CORE | | + +---------+ + + + | CHLORIDE, | 110 (H) | 97 - 108 mmol/L | [...] +---------+ + + + | CALCIUM, | 7.6 (L) | 8.6 - 10.2 | [facility] | | | PLASMA | | mg/dL | LABORATORY | | | (LAB) | | | SERVICES, | | | | | | CORE | | + +---------+ + + + | CALCIUM(ALB | 9.1 | 8.6 - 10.2 | [facility] | | | CORRECTED) | | mg/dL | LABORATORY | | | | | | SERVICES, | | | | | | CORE | | + +---------+ + + + | ALBUMIN, | 2.1 (L) | 3.5 - 4.7 g/dL | [facility] | | | PLASMA | | | LABORATORY | | | (LAB) | | | SERVICES, | | | | | | CORE | | + +---------+ + + + | PHOSPHORUS, | 3.2 | 2.4 - 4.7 mg/dL | [facility] [...] + | ANION GAP | 5 | 4 - 11 mmol/L | [facility] | | | | | | LABORATORY | | | | | | SERVICES, | | | | | | CORE | | + +---------+ + + + | ANION | 9 | 4 - 11 mmol/L | [facility] [...] | + + + + + | [facility] | [address] | [place] [address] | | | JOHNSON, RYAN | [address] | | | + + + + + CAPILLARY BLOOD GLUCOSE (NO CHG), POC (08/05/2018 11:05 PM PDT) + +---------+ + + + | Component | Value | Ref Range | Performed | Pathologist | | | | | At | Signature | + +---------+ + + + | BLOOD | 143 (H) | 60 - 99 mg/dL | [...] + + + + | [facility] | [address] | [place], [place] | | | [facility] | [address] | [address] | | | TESTS | | | | + + + + + APTT (ACT. PART. THROMBO TIME) (08/05/2018 8:42 PM PDT) + + + + + + | Component | Value | Ref Range | Performed | Pathologist | | | | | At | Signature | + + + + + + | APTT | 46.2 (H) | 26.0 - 36.0 | [facility] | [...] - 120) sec Heparin levels of | SERVICES, CORE | | 0.35 - 0.7 U/mL | | + + + + + + + + | Performing | Address | City/State/Zipcode | Phone Number | | Organization | | | | + + + + + | [facility] | [address] | [place] [address] | | | SERVICES, CORE | [address] | | | + + + + + CAPILLARY BLOOD GLUCOSE (NO CHG), POC (08/05/2018 7:34 PM PDT) + +---------+ + + + | Component | Value | Ref Range | Performed | Pathologist | | | | | At | Signature | + +---------+ + + + | BLOOD | 125 (H) | 60 - 99 mg/dL | [facility] - | | | GLUCOSE, | | [...] + + + | [facility] | [address] | [place], [place] | | | [facility] [facility] [facility] | [address] | [address] | | | TESTS | | | | + + + + + APTT (ACT. PART. THROMBO TIME) (08/05/2018 2:50 PM PDT) + + + + + + | Component | Value | Ref Range | Performed | Pathologist | | | | | At | Signature | + + + + + + | APTT | 66.1 (H) | 26.0 - 36.0 | [facility] | [...] - 120) sec Heparin levels of | SERVICES, CORE | | 0.35 - 0.7 U/mL | | + + + + + + + + | Performing | Address | City/State/Zipcode | Phone Number | | Organization | | | | + + + + + | [facility] | [address] | [place] [address] | | | SERVICES, CORE | [address] | | | + + + + + CAPILLARY BLOOD GLUCOSE (NO CHG), POC (08/05/2018 9:55 AM PDT) + +---------+ + + + | Component | Value | Ref Range | Performed | Pathologist | | | | | At | Signature | + +---------+ + + + | BLOOD | 102 (H) | 60 - 99 mg/dL | [...] [facility] | [address] | [place], [place] | | | [facility] [facility] | [address] | [address] | | | TESTS | | | | + + + + + APTT (ACT. PART. THROMBO TIME) (08/05/2018 6:40 AM PDT) + + + + + + | Component | Value | Ref Range | Performed | Pathologist | | | | | At | Signature | + + + + + + | APTT | 38.1 (H) | 26.0 - 36.0 | [facility] | [...] + + + + + | [facility] | [address] | [place] [address] | | | RYAN ORNELAS | [address] | | | + + + + + CBC (HEMOGRAM) ONLY (08/05/2018 1:40 AM PDT) + + + + + + | Component | Value | Ref Range | Performed | Pathologist | | | | | At | Signature | + + + + + + | WHITE CELL | 11.23 (H) | 3.50 - 10.80 | [facility] | | | COUNT | | K/cu mm | LABORATORY | | | | | | SERVICES, | | | | | | CORE | | + + + + + + | RED CELL | 2.69 (L) | 4.00 - 5.20 | [facility] | | | COUNT | | M/cu mm | LABORATORY | | | | | | SERVICES, | | | | | | CORE | | + + + + + + | HEMOGLOBIN | 8.4 (L) | 12.0 - 16.0 | [facility] | | | | | g/dL | LABORATORY | | | | | | SERVICES, | | | | | | CORE | | + + + + + + | HEMATOCRIT | 25.0 (L) | 36.0 - 46.0 % | [facility] | | | | | | LABORATORY | | | | | | SERVICES, | | | | | | CORE | | + + + + + + | MCV | 92.9 | 80.0 - 100.0 fL | [facility] | | | | | | LABORATORY | | | | | | SERVICES, | | | | | | CORE | | + + + + + + | MCHC | 33.6 | 32.0 - 36.0 | [facility] | | | | | g/dL | LABORATORY | | | | | | SERVICES, | | | | | | CORE | | + + + + + + | RDW SD | 48.1 (H) | 35.1 - 46.3 fL | [facility] | | | | | | LABORATORY | | | | | | SERVICES, | | | | | | CORE | | + + + + + + | PLATELET | 144 (L) | 150 - 400 K/cu | [facility] | | | COUNT | | mm | LABORATORY | | | | | | SERVICES, | | | | | | CORE | | + + + + + + | MPV | 10.6 | 9.7 - 12.3 fL | [facility] [...] | + + + + + | [facility] | [address] | [place] [address] | | | SERVICES, CORE | [address] | | | + + + + + RENAL FUNCTION SET (NA,K,CL,CO2,BUN,CREAT,GLUC,CA,PHOS,ALB ) (08/05/2018 1:40 AM PDT) + +---------+ + + + | Component | Value | Ref Range | Performed | Pathologist | | | | | At | Signature | + +---------+ + + + | GLUCOSE, | 99 | 70 - 99 mg/dL | [facility] | | | PLASMA | | | LABORATORY | | | (LAB) | | | SERVICES, | | | | | | CORE | | + +---------+ + + + | BUN, PLASMA | 17 | 6 - 20 mg/dL | [facility] | | | (LAB) | | | LABORATORY | | | | | | SERVICES, | | | | | | CORE | | + +---------+ + + + | CREATININE | 0.75 | 0.60 - 1.10 | [facility] | | | PLASMA | | mg/dL | LABORATORY | | | (LAB) | | | SERVICES, | | | | | | CORE | | + +---------+ + + + | EGFR | >60 | >60 mL/min | [facility] | | | - | | | LABORATORY | | | ALGERIAN | | | SERVICES, | | | [...] +---------+ + + + | POTASSIUM, | 4.0 | 3.4 - 5.0 | [facility] | | | PLASMA | | mmol/L | LABORATORY | | | (LAB) | | | SERVICES, | | | | | | CORE | | + +---------+ + + + | CHLORIDE, | 110 (H) | 97 - 108 mmol/L | [facility] | | | PLASMA | | | LABORATORY | | | (LAB) | | | SERVICES, | | | | | | CORE | | + +---------+ + + + | TOTAL CO2, | 25 | 21 - 32 mmol/L | [facility] | | | PLASMA | | | LABORATORY | | | (LAB) | | | SERVICES, | | | | | | CORE | | + +---------+ + + + | CALCIUM, | 7.5 (L) | 8.6 - 10.2 | [facility] | | | PLASMA | | mg/dL | LABORATORY | | | (LAB) | | | SERVICES, | | | | | | CORE | | + +---------+ + + + | CALCIUM(ALB | 8.8 | 8.6 - 10.2 | [facility] | | | CORRECTED) | | mg/dL | LABORATORY | | | | | | SERVICES, | | | | | | CORE | | + +---------+ + + + | ALBUMIN, | 2.4 (L) | 3.5 - 4.7 g/dL | [facility] | | | PLASMA | | | LABORATORY | | | (LAB) | | | SERVICES, | | | | | | CORE | | + +---------+ + + + | PHOSPHORUS, | 2.7 | 2.4 - 4.7 mg/dL | [facility] [...] + | ANION GAP | 6 | 4 - 11 mmol/L | [facility] | | | | | | LABORATORY | | | | | | SERVICES, | | | | | | CORE | | + +---------+ + + + | ANION | 10 | 4 - 11 mmol/L | [facility] [...] Performed At | + + + | IV Trough to be drawn immediately prior to 08/05 0100 dose GFR is | [facility] | | estimated using the MDRD equation recommended by the National Kidney | LABORATORY | | Disease Education Program. Estimated GFR Interpretive Information: | SERVICES, CORE | | <60 mL/min/1.73 sq m Chronic Kidney Disease <15 | | | mL/min/1.73 sq m Kidney Failure Estimated GFR | | | greater than 60 mL/min/1.73 sq m is of limited clinical value. The | | | MDRD equation is not valid in the following situations: - Patients | | | under 18 years of age - Severe malnutrition or obesity - Vegetarian | | | diet - Rapidly changing kidney function - Amputees, paraplegics, or | | | other muscle-wasting diseses | | + + + + + + + + | Performing | Address | City/State/Zipcode | Phone Number | | Organization | | | | + + + + + | [facility] | [address] | [place] [address] | | | SERVICES, CORE | [address] | | | + + + + + VANCOMYCIN, TROUGH (08/05/2018 1:40 AM PDT) + +---------+ + + + | Component | Value | Ref Range | Performed | Pathologist | | | | | At | Signature | + +---------+ + + + | VANCOMYCIN, | 9.5 (L) | 10.0 - 20.0 | [facility] | | | TROUGH | | ug/mL | LABORATORY | | | | | | SERVICES, | | | | | | CORE | | + +---------+ + + + + + | Specimen | + + | Blood - Blood | | (substance) | + + + + + | Narrative | Performed At | + + + | IV Trough to be drawn immediately prior to 08/05 0100 dose | [facility] | | | LABORATORY | | | SERVICES, CORE | + + + + + + + + | Performing | Address | City/State/Zipcode | Phone Number | | Organization | | | | + + + + + | [facility] | [address] | [place] [address] | | | SERVICES, CORE | [address] | | | + + + + + CARDIOLOGY (08/05/2018 12:00 AM PDT) + + + | Narrative | Performed At | + + + | | | + + + CARDIOLOGY (08/05/2018 12:00 AM PDT) + + + | Narrative | Performed At | + + + | | | + + + APTT (ACT. PART. THROMBO TIME) (08/04/2018 11:51 PM PDT) + + + + + + | Component | Value | Ref Range | Performed | Pathologist | | | | | At | Signature | + + + + + + | APTT | 46.8 (H) | 26.0 - 36.0 | [facility] | [...] - 120) sec Heparin levels of | SERVICES, CORE | | 0.35 - 0.7 U/mL | | + + + + + + + + | Performing | Address | City/State/Zipcode | Phone Number | | Organization | | | | + + + + + | [facility] | [address] | [place] [address] | | | SERVICES, CORE | [address] | | | + + + + + CAPILLARY BLOOD GLUCOSE (NO CHG), POC (08/04/2018 9:34 PM PDT) + +---------+ + + + | Component | Value | Ref Range | Performed | Pathologist | | | | | At | Signature | + +---------+ + + + | BLOOD | 144 (H) | 60 - 99 mg/dL | [facility] - | | | GLUCOSE, | | [...] | [facility] | [address] | [place], [place] | | | [facility] | [address] | [address] | | | TESTS | | | | + + + + + CBC (HEMOGRAM) ONLY (08/04/2018 6:54 PM PDT) + + + + + + | Component | Value | Ref Range | Performed | Pathologist | | | | | At | Signature | + + + + + + | WHITE CELL | 12.81 (H) | 3.50 - 10.80 | [facility] | | | COUNT | | K/cu mm | LABORATORY | | | | | | SERVICES, | | | | | | CORE | | + + + + + + | RED CELL | 2.88 (L) | 4.00 - 5.20 | [facility] | | | COUNT | | M/cu mm | LABORATORY | | | | | | SERVICES, | | | | | | CORE | | + + + + + + | HEMOGLOBIN | 9.1 (L) | 12.0 - 16.0 | [facility] | | | | | g/dL | LABORATORY | | | | | | SERVICES, | | | | | | CORE | | + + + + + + | HEMATOCRIT | 27.2 (L) | 36.0 - 46.0 % | [...] + + + + | MCHC | 33.5 | 32.0 - 36.0 | [facility] | | | | | g/dL | LABORATORY | | | | | | SERVICES, | | | | | | CORE | | + + + + + + | RDW SD | 47.8 (H) | 35.1 - 46.3 fL | [facility] | | | | | | LABORATORY | | | | | | SERVICES, | | | | | | CORE | | + + + + + + | PLATELET | 157 | 150 - 400 K/cu | [facility] | | | COUNT | | mm | LABORATORY | | | | | | SERVICES, | | | | | | CORE | | + + + + + + | MPV | 10.8 | 9.7 - 12.3 fL | [facility] [...] Performed At | + + + | 30 min after blood given | [facility] | | | LABORATORY | | | SERVICES, RYAN | + + + + + + + + | Performing | Address | City/State/Zipcode | Phone Number | | Organization | | | | + + + + + | [facility] | [address] | [place] [address] | | | SERVICES, RYAN | [address] | | | + + + + + CAPILLARY BLOOD GLUCOSE (NO CHG), POC (08/04/2018 5:50 PM PDT) + +---------+ + + + | Component | Value | Ref Range | Performed | Pathologist | | | | | At | Signature | + +---------+ + + + | BLOOD | 140 (H) | 60 - 99 mg/dL | [facility] - | | | GLUCOSE, | | | [facility] | | | POC | | | [place] [place]INT | | | | | | OF CARE | | | | | | TESTS | | + +---------+ + + + + + | Specimen | + + | | + + + + + + + | Performing | Address | City/State/Zipcode | Phone Number | | Organization | | | | + + + + + | [facility] | [address] | [place], [place] | | | [facility] | [facility] | [address] | | | TESTS | | | | + + + + + COAGULOPATHY PANEL (INR,APTT,FIBRINOGEN) (08/04/2018 4:25 PM PDT) + + + + + + | Component | Value | Ref Range | Performed | Pathologist | | | | | At | Signature | + + + + + + | INR | 1.18 | 0.90 - 1.20 INR | [facility] | | | | | | LABORATORY | | | | | | SERVICES, | | | | | | CORE | | + + + + + + | APTT | 73.6 (H) | 26.0 - 36.0 | [facility] | | | | | seconds | LABORATORY | | | | | | SERVICES, | | | | | | CORE | | + + + + + + | FIBRINOGEN | 355 | 150 - 450 mg/dL | [facility] | | | LEVEL | | | LABORATORY | | | [...] with mech. valves (2.5 - 3.5) INR APTT values for | SERVICES, CORE | | monitoring heparin therapy may be affected by specimens processed >1 | | | hour after collection. APTT Therapeutic Range: | | | (75 - 120) sec Heparin levels of 0.35 - 0.7 U/mL | | + + + + + + + + | Performing | Address | City/State/Zipcode | Phone Number | | Organization | | | | + + + + + | [facility] | [address] | [place] [address] | | | SERVICES, RYAN | [address] | | | + + + + + PRODUCT - RED CELLS LEUKOREDUCED (08/04/2018 3:51 PM PDT) + + + + + + | Component | Value | Ref Range | Performed | Pathologist | | | | | At | Signature | + + + + + + | PRODUCT | -1 RED BLOOD CELL | | [facility] | | | DESCRIPTION | ADENINE-SALINE ADDED | | LABORATORY | | | | LEUKOCYTE | | SERVICES, | | | | | | TRANSFUSION | | | | | | MEDICINE | | + + + + + + | PRODUCT | [id number] | | [facility] | | | UNIT # | | | LABORATORY | | | | | | SERVICES, | | | | | | TRANSFUSION | | | | | | MEDICINE | | + + + + + + | UNIT ABO | O | | [facility] | | | | | | LABORATORY | | | | | | SERVICES, | | | | | | TRANSFUSION | | | | | | MEDICINE | | + + + + + + | UNIT RH | NEG | | [facility] | | | | | | LABORATORY | | | | | | SERVICES, | | | | | | TRANSFUSION | | | | | | MEDICINE | | + + + + + + | STATUS OF | Presumed Transfused | | [facility] | | | UNIT | | | LABORATORY | | | | | | SERVICES, | | | | | | TRANSFUSION | | | | | | MEDICINE | | + + + + + + | EXPIRATION | [id number] | | [facility] | | | DATE | | | LABORATORY | | | | | | SERVICES, | | | | | | TRANSFUSION | | | | | | MEDICINE | | + + + + + + | BLOOD TYPE | [id number] | | [facility] | | | BARCODE | | | LABORATORY | | | | | | SERVICES, | | | | | | TRANSFUSION | | | | | | MEDICINE | | + + + + + + | BLOOD | [id number] | | [facility] | | | PRODUCT | | | LABORATORY | | | CODE | | | SERVICES, | | | | | | TRANSFUSION | | | | | | MEDICINE | | + + + + + + + + | Specimen | + + | | + + + + + + + | Performing | Address | City/State/Zipcode | Phone Number | | Organization | | | | + + + + + | [facility] | [address] | [place] [address] | | | SERVICES, | [address] | | | | TRANSFUSION MEDICINE | | | | + + + + + CBC (HEMOGRAM) ONLY (08/04/2018 3:15 PM PDT) + + + + + + | Component | Value | Ref Range | Performed | Pathologist | | | | | At | Signature | + + + + + + | WHITE CELL | 11.65 (H) | 3.50 - 10.80 | [facility] | | | COUNT | | K/cu mm | LABORATORY | | | | | | SERVICES, | | | | | | CORE | | + + + + + + | RED CELL | 2.36 (L) | 4.00 - 5.20 | [facility] | | | COUNT | | M/cu mm | LABORATORY | | | | | | SERVICES, | | | | | | CORE | | + + + + + + | HEMOGLOBIN | 7.5 (L) | 12.0 - 16.0 | [facility] | | | | | g/dL | LABORATORY | | | | | | SERVICES, | | | | | | CORE | | + + + + + + | HEMATOCRIT | 22.3 (L) | 36.0 - 46.0 % | [facility] | | | | | | LABORATORY | | | | | | SERVICES, | | | | | | CORE | | + + + + + + | MCV | 94.5 | 80.0 - 100.0 fL | [facility] | | | | | | LABORATORY | | | | | | SERVICES, | | | | | | CORE | | + + + + + + | MCHC | 33.6 | 32.0 - 36.0 | [facility] | | | | | g/dL | LABORATORY | | | | | | SERVICES, | | | | | | CORE | | + + + + + + | RDW SD | 48.5 (H) | 35.1 - 46.3 fL | [facility] | | | | | | LABORATORY | | | | | | SERVICES, | | | | | | CORE | | + + + + + + | PLATELET | 193 | 150 - 400 K/cu | [facility] | | | COUNT | | mm | LABORATORY | | | | | | SERVICES, | | | | | | CORE | | + + + + + + | MPV | 11.6 | 9.7 - 12.3 fL | [facility] [...] | + + + + + | [facility] | [address] | [place] [address] | | | SERVICES, CORE | [address] | | | + + + + + CAPILLARY BLOOD GLUCOSE (NO CHG), POC (08/04/2018 12:11 PM PDT) + +---------+ + + + | Component | Value | Ref Range | Performed | Pathologist | | | | | At | Signature | + +---------+ + + + | BLOOD | 143 (H) | 60 - 99 mg/dL | [...] [facility] | [address] | [place], [place] | | | [facility] | [address] | [address] | | | TESTS | | | | + + + + + APTT (ACT. PART. THROMBO TIME) (08/04/2018 10:18 AM PDT) + + + + + + | Component | Value | Ref Range | Performed | Pathologist | | | | | At | Signature | + + + + + + | APTT | 132.9 (H) | 26.0 - 36.0 | [facility] | [...] | + + + + + | [facility] | [address] | [place] [address] | | | RYAN ORNELAS | [address] | | | + + + + + CAPILLARY BLOOD GLUCOSE (NO CHG), POC (08/04/2018 8:49 AM PDT) + +---------+ + + + | Component | Value | Ref Range | Performed | Pathologist | | | | | At | Signature | + +---------+ + + + | BLOOD | 128 (H) | 60 - 99 mg/dL | [...] [facility] | [address] | [place], [place] | | | [facility] | [address] | [address] | | | TESTS | | | | + + + + + PROCEDURE NOTE (08/04/2018 6:48 AM PDT)CAPILLARY BLOOD GLUCOSE (NO CHG), POC (08/04/2018 6:44 AM PDT) + +---------+ + + + [...] | [facility] | [address] | [place], [place] | | | [facility] | [address] | [address] | | | TESTS | | | | + + + + + CAPILLARY BLOOD GLUCOSE (NO CHG), POC (08/04/2018 4:42 AM PDT) + +---------+ + + + | Component | Value | Ref Range | Performed | Pathologist | | | | | At | Signature | + +---------+ + + + | BLOOD | 135 (H) | 60 - 99 mg/dL | [...] [facility] | [address] | [place], [place] | | | [facility] | [address] | [address] | | | TESTS | | | | + + + + + CAPILLARY BLOOD GLUCOSE (NO CHG), POC (08/04/2018 2:43 AM PDT) + +---------+ + + + | Component | Value | Ref Range | Performed | Pathologist | | | | | At | Signature | + +---------+ + + + | BLOOD | 138 (H) | 60 - 99 mg/dL | [...] + + + + | [facility] | [address] | [place], [place] | | | [place] [facility] | [facility] | [address] | | | TESTS | | | | + + + + + CBC (HEMOGRAM) ONLY (08/04/2018 1:45 AM PDT) + + + + + + | Component | Value | Ref Range | Performed | Pathologist | | | | | At | Signature | + + + + + + | WHITE CELL | 15.26 (H) | 3.50 - 10.80 | [facility] | | | COUNT | | K/cu mm | LABORATORY | | | | | | SERVICES, | | | | | | CORE | | + + + + + + | RED CELL | 3.28 (L) | 4.00 - 5.20 | [facility] | | | COUNT | | M/cu mm | LABORATORY | | | | | | SERVICES, | | | | | | CORE | | + + + + + + | HEMOGLOBIN | 10.3 (L) | 12.0 - 16.0 | [facility] | | | | | g/dL | LABORATORY | | | | | | SERVICES, | | | | | | CORE | | + + + + + + | HEMATOCRIT | 31.4 (L) | 36.0 - 46.0 % | [facility] | | | | | | LABORATORY | | | | | | SERVICES, | | | | | | CORE | | + + + + + + | MCV | 95.7 | 80.0 - 100.0 fL | [facility] | | | | | | LABORATORY | | | | | | SERVICES, | | | | | | CORE | | + + + + + + | MCHC | 32.8 | 32.0 - 36.0 | [facility] | | | | | g/dL | LABORATORY | | | | | | SERVICES, | | | | | | CORE | | + + + + + + | RDW SD | 49.0 (H) | 35.1 - 46.3 fL | [facility] | | | | | | LABORATORY | | | | | | SERVICES, | | | | | | CORE | | + + + + + + | PLATELET | 202 | 150 - 400 K/cu | [facility] | | | COUNT | | mm | LABORATORY | | | | | | SERVICES, | | | | | | CORE | | + + + + + + | MPV | 10.3 | 9.7 - 12.3 fL | [facility] [...] | 0.00 | 0.00 - 0.02 | [facility] | | | | | K/cu mm [...] + | [facility] | [address] | [place] [address] | | | JOHNSON, CORE | [address] | | | + + + + + APTT (ACT. PART. THROMBO TIME) (08/04/2018 1:45 AM PDT) + + + + + + | Component | Value | Ref Range | Performed | Pathologist | | | | | At | Signature | + + + + + + | APTT | >200.0 (H) | 26.0 - 36.0 | [facility] | [...] - 120) sec Heparin levels of | [facility], CORE | | 0.35 - 0.7 U/mL | | + + + + + + + + | Performing | Address | City/State/Zipcode | Phone Number | | Organization | | | | + + + + + | [facility] | [address] | [place] [address] | | | RYAN ORNELAS | [address] | | | + + + + + CAPILLARY BLOOD GLUCOSE (NO CHG), POC (08/04/2018 1:39 AM PDT) + +---------+ + + + | Component | Value | Ref Range | Performed | Pathologist | | | | | At | Signature | + +---------+ + + + | BLOOD | 126 (H) | 60 - 99 mg/dL | [facility] - | | | GLUCOSE, | | [...] [facility] | [address] | [place], [place] | | | [facility] [facility] [place] | [facility] | [address] | | | TESTS | | | | + + + + + CAPILLARY BLOOD GLUCOSE (NO CHG), POC (08/04/2018 12:37 AM PDT) + +---------+ + + + | Component | Value | Ref Range | Performed | Pathologist | | | | | At | Signature | + +---------+ + + + | BLOOD | 139 (H) | 60 - 99 mg/dL | [...] | [facility] | [address] | [place], [place] | | | [facility] | [address] | [address] | | | TESTS | | | | + + + + + CBC (HEMOGRAM) ONLY (08/03/2018 11:43 PM PDT) + + + + + + | Component | Value | Ref Range | Performed | Pathologist | | | | | At | Signature | + + + + + + | WHITE CELL | 16.18 (H) | 3.50 - 10.80 | [facility] | | | COUNT | | K/cu mm | LABORATORY | | | | | | SERVICES, | | | | | | CORE | | + + + + + + | RED CELL | 3.50 (L) | 4.00 - 5.20 | [facility] | | | COUNT | | M/cu mm | LABORATORY | | | | | | SERVICES, | | | | | | CORE | | + + + + + + | HEMOGLOBIN | 10.9 (L) | 12.0 - 16.0 | [facility] | | | | | g/dL | LABORATORY | | | | | | SERVICES, | | | | | | CORE | | + + + + + + | HEMATOCRIT | 33.9 (L) | 36.0 - 46.0 % | [facility] | | | | | | LABORATORY | | | | | | SERVICES, | | | | | | CORE | | + + + + + + | MCV | 96.9 | 80.0 - 100.0 fL | [facility] | | | | | | LABORATORY | | | | | | SERVICES, | | | | | | CORE | | + + + + + + | MCHC | 32.2 | 32.0 - 36.0 | [facility] | | | | | g/dL | LABORATORY | | | | | | SERVICES, | | | | | | CORE | | + + + + + + | RDW SD | 49.8 (H) | 35.1 - 46.3 fL | [facility] | | | | | | LABORATORY | | | | | | SERVICES, | | | | | | CORE | | + + + + + + | PLATELET | 217 | 150 - 400 K/cu | [facility] [...] | + + + + + | [facility] | [address] | [place] [address] | | | SERVICES, CORE | [address] | | | + + + + + BASIC METABOLIC SET (NA, K, CL, TCO2, BUN, CR, GLU, CA) (08/03/2018 11:43 PM PDT) + +---------+ + + + | Component | Value | Ref Range | Performed | Pathologist | | | | | At | Signature | + +---------+ + + + | GLUCOSE, | 136 (H) | 70 - 99 mg/dL | [facility] | | | PLASMA | | | LABORATORY | | | (LAB) | | | SERVICES, | | | | | | CORE | | + +---------+ + + + | BUN, PLASMA | 19 | 6 - 20 mg/dL | [facility] | | | (LAB) | | | LABORATORY | | | | | | SERVICES, | | | | | | CORE | | + +---------+ + + + | CREATININE | 0.66 | 0.60 - 1.10 | [facility] | | | PLASMA | | mg/dL | LABORATORY | | | (LAB) | | | SERVICES, | | | | | | CORE | | + +---------+ + + + | EGFR | >60 | >60 mL/min | [facility] | | | - | | | LABORATORY | | | [facility] | | | SERVICES, | | | [...] +---------+ + + + | POTASSIUM, | 4.4 | 3.4 - 5.0 | [facility] | | | PLASMA | | mmol/L | LABORATORY | | | (LAB) | | | SERVICES, | | | | | | CORE | | + +---------+ + + + | CHLORIDE, | 110 (H) | 97 - 108 mmol/L | [...] +---------+ + + + | CALCIUM, | 8.0 (L) | 8.6 - 10.2 | [facility] | | | PLASMA | | mg/dL | LABORATORY | | | (LAB) | | | SERVICES, | | | | | | CORE | | + +---------+ + + + | ANION GAP | 8 | 4 - 11 mmol/L [...] MDRD equation recommended by the National | [facility] | | Kidney Disease Education Program. Estimated [...] + | [facility] | [address] | [place] [address] | | | SERVICES, CORE | [address] | | | + + + + + INR (08/03/2018 11:43 PM PDT) + +-------+ + + + | Component | Value | Ref Range | Performed | Pathologist | | | | | At | Signature | + +-------+ + + + | INR | 1.19 | 0.90 - 1.20 INR | [facility] [...] | + + + + + | [facility] | [address] | [place] [address] | | | SERVICES, CORE | [address] | | | + + + + + CAPILLARY BLOOD GLUCOSE (NO CHG), POC (08/03/2018 11:35 PM PDT) + +---------+ + + + | Component | Value | Ref Range | Performed | Pathologist | | | | | At | Signature | + +---------+ + + + | BLOOD | 184 (H) | 60 - 99 mg/dL | [facility] - | | | GLUCOSE, | | [...] + + + | [facility] | [address] | [place], [place] | | | [facility] | [address] | [address] | | | TESTS | | | | + + + + + CAPILLARY BLOOD GLUCOSE (NO CHG), POC (08/03/2018 10:32 PM PDT) + +---------+ + + + | Component | Value | Ref Range | Performed | Pathologist | | | | | At | Signature | + +---------+ + + + | BLOOD | 179 (H) | 60 - 99 mg/dL | [...] [facility] | [address] | [place], [place] | | | [facility] | [address] | [address] | | | TESTS | | | | + + + + + CT HEAD WO CONTRAST (08/03/2018 10:08 PM PDT) + + | Specimen | + + | | + + + + + | Narrative | Performed At | + + + | EXAM: CT HEAD WITHOUT CONTRAST HISTORY: postop eval. s/p right | [facility] | | mesh cranioplasty, bilateral latissimus dorsi free flap, and split | RADIOLOGY VOICE | | thickness skin graft from back COMPARISON: None. TECHNIQUE: CT | RECOGNITION 2 | | of the head without intravenous contrast. FINDINGS: BRAIN: | | | Postsurgical changes of a right frontal mesh cranioplasty with | | | latissimus dorsi free flap. There is interval development of a | | | hyperdense fluid collection external to the dura with minimal mass | | | effect on the adjacent right frontal lobe, likely postsurgical. 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 No evidence of acute | | | territorial infarction, mass, or hemorrhage. Aneurysmal clips are | | | again visualized in the suprasellar region. The ventricles are stable | | | in size and morphology. SOFT TISSUES: Postsurgical changes of a | | | right frontal mesh cranioplasty with latissimus dorsi free flap. | | | SKULL AND SKULL BASE: No fractures or destructive lesions. Mastoids | | | and middle ears are unremarkable. FACE/ORBITS: Visualized portions | | | are unremarkable. PARANASAL SINUSES: Trace mucosal thickening of the | | | bilateral sphenoid sinuses, likely secondary to intubation. | | | IMPRESSION: Postsurgical changes of a right frontal mesh | | | cranioplasty with latissimus dorsi free flap. Interval development | | | of a hyperdense collection beneath the mesh cranioplasty with minimal | | | mass effect on the adjacent right frontal lobe, however is localized | | | hemorrhage and/or surgical changes. Other findings appear stable | | | without new acute process. These results were discussed with | | | Neurosurgery on-call resident on 08/03/2018 11:07 PM by Beny Maher MD. | | | I have personally reviewed the images and, if necessary, edited the | | | report. I agree with the report as now presented. Final | | | signature: Letitia Orellana MD 08/04/2018 7:41 AM Preliminary: | | | Beny Maher MD Dictation initiated: Beny Maher MD 08/03/2018 | | | 10:43 PM | | + + + + + | Procedure Note | + + | Service Account, Radiant Res In Interface - 08/04/2018 7:42 AM PDT EXAM: CT HEAD | | WITHOUT CONTRAST HISTORY: postop eval. s/p right mesh cranioplasty, bilateral latissimus | | dorsi free flap, and split thickness skin graft from back COMPARISON: None. TECHNIQUE: | | CT of the head without intravenous contrast. FINDINGS: BRAIN: Postsurgical changes of a | | right frontal mesh cranioplasty with latissimus dorsi free flap. There is interval | | development of a hyperdense fluid collection external to the dura with minimal mass | | effect on the adjacent right frontal lobe, likely postsurgical. Again noted is bifrontal | | encephalomalacia. No evidence of acute territorial infarction, mass, or hemorrhage. | | Aneurysmal clips are again visualized in the suprasellar region. The ventricles are | | stable in size and morphology. SOFT TISSUES: Postsurgical changes of a right frontal | | mesh cranioplasty with latissimus dorsi free flap.SKULL AND SKULL BASE: No fractures or | | destructive lesions. Mastoids and middle ears are unremarkable.FACE/ORBITS: Visualized | | portions are unremarkable.PARANASAL SINUSES: Trace mucosal thickening of the bilateral | | sphenoid sinuses, likely secondary to intubation. IMPRESSION: Postsurgical changes of a | | right frontal mesh cranioplasty with latissimus dorsi free flap. Interval development of | | a hyperdense collection beneath the mesh cranioplasty with minimal mass effect on the | | adjacent right frontal lobe, however is localized hemorrhage and/or surgical changes. | | Other findings appear stable without new acute process. These results were discussed | | with Neurosurgery on-call resident on 08/03/2018 11:07 PM by Beny Maher MD. I have | | personally reviewed the images and, if necessary, edited the report. I agree with the | | report as now presented. Final signature: Letitia Orellana MD 08/04/2018 7:41 AM | | Preliminary: Beny Maher MD Dictation initiated: Beny Maher MD 08/03/2018 10:43 PM | |Postsurgical changes of a right frontal mesh cranioplasty with latissimus dorsi free flap. | | | |Interval development of a hyperdense collection beneath the mesh cranioplasty with minimal mass effect on the adjacent right frontal lobe, however is localized hemorrhage and/or surgi eagle changes. | | | |Other findings appear stable without new acute process. | | | |These results were discussed with Neurosurgery on-call resident on 08/03/2018 11:07 PM by Parvez Maher MD. | | | |I have personally reviewed the images and, if necessary, edited the report. I agree with th e report as now presented. | | | |Final signature: Letitia Orellana MD 08/04/2018 7:41 AM | |Preliminary: Beny Maher MD | |Dictation initiated: Beny Maher MD 08/03/2018 10:43 PM | + + + +---------+ + + | Performing | Address | City/State/Zipcode | Phone Number | | Organization | | | | + +---------+ + + | [facility] | | | | | [facility] RECOGNITION 2 | | | | + +---------+ + + INR (08/03/2018 9:17 PM PDT) + + + + + + | Component | Value | Ref Range | Performed | Pathologist | | | | | At | Signature | + + + + + + | INR | 1.21 (H) | 0.90 - 1.20 INR | [facility] [...] | + + + + + | [facility] | [address] | [place] [address] | | | SERVICES, CORE | [address] | | | + + + + + CAPILLARY BLOOD GLUCOSE (NO CHG), POC (08/03/2018 9:10 PM PDT) + +---------+ + + + | Component | Value | Ref Range | Performed | Pathologist | | | | | At | Signature | + +---------+ + + + | BLOOD | 228 (H) | 60 - 99 mg/dL | [...] | + + + + + | [facility] | [address] | [place], [place] | | | [facility] | [facility] | [address] | | | TESTS | | | | + + + + + CBC (HEMOGRAM) ONLY (08/03/2018 9:10 PM PDT) + + + + + + | Component | Value | Ref Range | Performed | Pathologist | | | | | At | Signature | + + + + + + | WHITE CELL | 16.85 (H) | 3.50 - 10.80 | [facility] | | | COUNT | | K/cu mm | LABORATORY | | | | | | SERVICES, | | | | | | CORE | | + + + + + + | RED CELL | 3.81 (L) | 4.00 - 5.20 | [facility] | | | COUNT | | M/cu mm | LABORATORY | | | | | | SERVICES, | | | | | | CORE | | + + + + + + | HEMOGLOBIN | 11.9 (L) | 12.0 - 16.0 | [facility] | | | | | g/dL | LABORATORY | | | | | | SERVICES, | | | | | | CORE | | + + + + + + | HEMATOCRIT | 37.2 | 36.0 - 46.0 % | [facility] | | | | | | LABORATORY | | | | | | SERVICES, | | | | | | CORE | | + + + + + + | MCV | 97.6 | 80.0 - 100.0 fL | [facility] | | | | | | LABORATORY | | | | | | SERVICES, | | | | | | CORE | | + + + + + + | MCHC | 32.0 | 32.0 - 36.0 | [facility] | | | | | g/dL | LABORATORY | | | | | | SERVICES, | | | | | | CORE | | + + + + + + | RDW SD | 50.0 (H) | 35.1 - 46.3 fL | [facility] | | | | | | LABORATORY | | | | | | SERVICES, | | | | | | CORE | | + + + + + + | PLATELET | 243 | 150 - 400 K/cu | [facility] | | | COUNT | | mm | LABORATORY | | | | | | SERVICES, | | | | | | CORE | | + + + + + + | MPV | 10.9 | 9.7 - 12.3 fL | [facility] [...] | + + + + + | [facility] | [address] | [place] [address] | | | SERVICES, CORE | [address] | | | + + + + + CAPILLARY BLOOD GLUCOSE (NO CHG), POC (08/03/2018 7:52 PM PDT) + +---------+ + + + | Component | Value | Ref Range | Performed | Pathologist | | | | | At | Signature | + +---------+ + + + | BLOOD | 189 (H) | 60 - 99 mg/dL | [...] [facility] | [address] | [place], [place] | | | [facility] | [address] | [address] | | | TESTS | | | | + + + + + OPERATION RECORD (08/03/2018 6:27 PM PDT) + + | Procedure Note | + + | Magnolia Diego MD - 08/03/2018 6:27 PM PDT Date of Service: 08/03/2018 Attending | | Surgeon: MD Magnolia Hansen MD Utility Hand(s): Rosario Pettit | | MD Abel Sanderson MD David J Mazur Hart, MD Kutluay Uluc, MD | | Preoperative Diagnosis: Wound dehiscence.Postoperative Diagnosis: Wound | | dehiscence.Procedures Performed: 1. Right mesh cranioplasty >5cm.2. Wound debridement. | | 3. 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 She also developed a left superficial neck abscess that | | required surgical drainage. 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 She re-presented in 2015, to the | | neurosurgical service with results of her bone flap and loose hardware. She underwent a | | synthetic cranioplasty at that time. Unfortunately, she then developed exposed | | cranioplasty in November of 2017, which required surgical explantation. She returned to | | the Neurosurgery Clinic requesting cranioplasty for cosmetic reasons. There was | | significant discussion regarding her continued smoking use and thin tissue, which would | | put a cranioplasty synthetic at great risk for poor wound healing or breakdown. She | | underwent a cranioplasty in April of 2018, for which the wound was closed primarily. | | Unfortunately, she re-presented with an exposed hardware over her cranioplasty. This, | | too, needed explantation, which occurred in June 2018, and Ear, Nose, and Throat team | | assisted with closure of the complex wound. Unfortunately, on return to Neurosurgery | | Clinic for removal of her sutures, she again developed wound breakdown with exposed | | dural tissue underneath, for which she was indicated for the above procedure. A full | | PARQ discussion was held, in which all risks, benefits, alternatives were discussed with | | the patient in great detail. The patient wishes to perform with surgical intervention. | | A signed consent was placed in the chart.Procedure In Detail: The patient was | | identified in the preoperative holding area and was brought back to the operating room | | theater on a [employer]. She was given to the anesthesia staff, for which general | | endotracheal anesthesia was induced without difficulty. Her eyes were taped shut using | | Tegaderms. She was positioned supine with a slight bump to elevate her right side, to | | expose latissimus dorsi for the ear, nose and throat surgeons. Xeroform was placed in | | the ear. Hair was minimally clipped along the prior surgical scars which were to be | | reopened. Preoperative prophylactic intravenous antibiotics were given. Her prior | | incisions were easily identifiable and marked out and prepped using chlorhexidine and | | ChloraPrep, due to her iodine allergy. We did not inject with local anesthetic. The | | patient was draped in the usual sterile fashion. Ioban was avoided due to her iodine | | allergy. A team pause was held in which all members of the operating room agreed this | | is the correct patient in the correct position for the correct procedure. The | | neurosurgical portion of this dictation will cover the cranial portion of the exposure. | | A #10 scalpel blade was used to perform skin incision. Bovie electrocautery was used | | for hemostasis and further dissection of the periosteum. Agusto clips were applied for | | hemostasis, while avoiding electrocautery as much as possible. A periosteal elevator | | was used to remove the periosteum posterior to the incision and anterior to the bone | | edges. The [place] 1 was used to dissect the scar tissue and periosteum from the inner | | [place] of the bony defect. Tenotomies and blunt dissection were used to elevate the | | myofascial flap from her scarred dural replacement for which a nice plane was found. A | | preformed Medtronic mesh was opened on the back table sterilely and cut to fit the | | patient's cranial defect. This was placed using 4 mm cranial fixation screws with firm | | application and good cosmetic coverage. There were no pointy or sharp edges to inhibit | | wound healing. The wound was covered with blue towels to maintain sterility. Following | | this, the case was handed over to Dr. White to perform both latissimus dorsi graft and | | wound closure of the scalp. At the end of our portion of the case, all needle counts, | | sponge counts, and instrument counts were correct x2. Dr. Diego was present for all | | critical portions of the case.Medardo Benz, KAVINJM/MODSNOWD: | | 08/03/2018 15:19:29DT: 08/03/2018 15:55:39Job #: [id number], Dr. Magnolia Diego | | certify that I was present for and participated in the critical parts of the procedure. | | I further certify that I was the principal surgeon for this procedure.MAGNOLIA DIEGO, | | [facility] [id number], [place] [phone] | |Magnolia Diego MD | |DJM/MODL | | | | | | /[id number] | | | |I, Dr. Magnolia Diego certify that I was present for and participated in the critical parts of the procedure. I further certify that I was the principal surgeon for this procedure. | | | | | | | |MAGNOLIA DIEGO MD | |[facility] | |[address] | |[id number] | |[place] [address] | |[phone] | + + ANTIBODY SCREEN (08/03/2018 10:50 AM PDT) + + + + + + | Component | Value | Ref Range | Performed | Pathologist | | | | | At | Signature | + + + + + + | Antibody | Negative | | [facility] | | | Screen | | | LABORATORY | | | | | | SERVICES, | | | | | | TRANSFUSION | | | | | | MEDICINE | | + + + + + + + + | Specimen | + + | Blood - Blood | | (substance) | + + + + + + + | Performing | Address | City/State/Zipcode | Phone Number | | Organization | | | | + + + + + | [facility] | [address] | [place] [address] | | | SERVICES, | [address] | | | | TRANSFUSION MEDICINE | | | | + + + + + ABO & RH TYPE (08/03/2018 10:50 AM PDT) + + + + + + | Component | Value | Ref Range | Performed | Pathologist | | | | | At | Signature | + + + + + + | ABO Group | O | | [facility] | | | | | | LABORATORY | | | | | | SERVICES, | | | | | | TRANSFUSION | | | | | | MEDICINE | | + + + + + + | Rh Type | Negative | | [facility] | | | | | | LABORATORY | | | | | | SERVICES, | | | | | | TRANSFUSION | | | | | | MEDICINE | | + + + + + + + + | Specimen | + + | Blood - Blood | | (substance) | + + + + + + + | Performing | Address | City/State/Zipcode | Phone Number | | Organization | | | | + + + + + | [facility] | [address] | [place] [address] | | | SERVICES, | [address] | | | | TRANSFUSION MEDICINE | | | | + + + + + CAPILLARY BLOOD GLUCOSE (NO CHG), POC (08/03/2018 10:43 AM PDT) + +-------+ + + + | Component | Value | Ref Range | Performed | Pathologist | | | | | At | Signature | + +-------+ + + + | BLOOD | 88 | 60 - 99 mg/dL | [facility] [...] [facility] | [address] | [place], [place] | | | [facility] | [address] | [address] | | | TESTS | | | | + + + + + INTRAPROCEDURE IMAGING (08/03/2018 9:56 AM PDT) + + | Specimen | + + | | + + + + + | Narrative | Performed At | + + + | See admission or procedure notes for details of any intraprocedure | [facility] | | images obtained. | RADIOLOGY | + + + + +---------+ + + | Performing | Address | City/State/Zipcode | Phone Number | | Organization | | | | + +---------+ + + | [facility] | | | | + +---------+ + + CARDIOLOGY (08/03/2018 12:00 AM PDT) + + + | Narrative | Performed At | + + + | | | + + + documented in this encounter Visit Diagnoses + + | Diagnosis | + + | Dehiscence of operative wound, sequela | + + documented in this encounter Administered Medications + +--------+---------+------+------+------+ | Medication Order | MAR | Action | Dose | Rate | Site | | | Action | Date | | | | + +--------+---------+------+------+------+ + +---+ | acetaminophen (TYLENOL) | | | suppository 325-650 mg 325-650 | | | mg, rectal, EVERY 6 HOURS | | | NEEDED, Starting Tue08/03/18 at | | | 2225, Until Tue08/11/18 at 1812, | | | mild pain, headache, fever and/or | | | multimodal pain control, when | | | unable to take oral or by feeding | | | tube | | + +---+ | | | + +---+ + +-------+ +--------+---+---+ | acetaminophen (TYLENOL) tablet | Given | 08/12/19 | 650 mg | | | | 325-650 mg 325-650 mg, oral, | | 19 11:34 | | | | | EVERY 6 HOURS NEEDED, Starting | | AM PDT | | | | | Clarisa 08/03/18 at 2225, Until Fri | | | | | | | 08/11/18 at 1812, mild pain, | | | | | | | headache, fever, multimodal pain | | | | | | | control | | | | | | + +-------+ +--------+---+---+ +-------+ +--------+---+---+ | Given | 08/11/19 | 650 mg | | | | | 19 7:57 | | | | | | PM PDT | | | | +-------+ +--------+---+---+ | Given | 08/11/19 | 650 mg | | | | | 19 7:46 | | | | | | AM PDT | | | | +-------+ +--------+---+---+ + +---+ | | | + +---+ | acetaminophen (TYLENOL) tablet | | | 325-650 mg 325-650 mg, feeding | | | tube, EVERY 6 HOURS NEEDED, | | | Starting Clarisa 08/03/18 at 2225, | | | Until Tue08/11/18 at 1812, mild | | | pain, headache, fever and/or | | | multimodal pain control, when | | | unable to take oral | | + +---+ | | | + +---+ + +-------+ +--------+---+---+ | ascorbic acid (vitamin C) | Given | 08/12/19 | 500 mg | | | | tablet 500 mg 500 mg, oral, | | 19 9:21 | | | | | TWICE DAILY, 30 doses, First dose | | AM PDT | | | | | on Tue08/03/18 at 2230, Last | | | | | | | dose on Tue08/18/18 at 0900 | | | | | | + +-------+ +--------+---+---+ +-------+ +--------+---+---+ | Given | 08/11/19 | 500 mg | | | | | 19 7:56 | | | | | | PM PDT | | | | +-------+ +--------+---+---+ | Given | 08/10/19 | 500 mg | | | | | 19 8:35 | | | | | | PM PDT | | | | +-------+ +--------+---+---+ +---+---+ | | | +---+---+ + +-------+ +--------+---+---+ | ascorbic acid (vitamin C) | Given | 08/11/19 | 500 mg | | | | tablet 500 mg 500 mg, feeding | | 19 9:08 | | | | | tube, TWICE DAILY, 30 doses, | | AM PDT | | | | | First dose on Tue08/03/18 at | | | | | | | 2230, Last dose on Tue08/18/18 at | | | | | | | 0900 | | | | | | + +-------+ +--------+---+---+ +-------+ +--------+---+---+ | Given | 08/05/19 | 500 mg | | | | | 19 9:59 | | | | | | AM PDT | | | | +-------+ +--------+---+---+ +---+---+ | | | +---+---+ + +-------+ +-------+---+---+ | atorvastatin (LIPITOR) tablet | Given | 08/12/19 | 80 mg | | | | 80 mg 80 mg, oral, DAILY, First | | 19 9:21 | | | | | dose on 08/04/18 at 0900, | | AM PDT | | | | | Until Discontinued | | | | | | + +-------+ +-------+---+---+ +-------+ +-------+---+---+ | Given | 08/11/19 | 80 mg | | | | | 19 9:08 | | | | | | AM PDT | | | | +-------+ +-------+---+---+ | Given | 08/10/19 | 80 mg | | | | | 19 9:56 | | | | | | AM PDT | | | | +-------+ +-------+---+---+ +---+---+ | | | +---+---+ + +-------+ + +---+ + | bacitracin 50,000 Units, | Given | 08/04/19 | 1,010 mL | | Surgical | | ringers (TIS-U-YUDELKA) 1,000 mL | | 19 12:45 | | | Site | | INTRAPROCEDURE PRN, Starting Clarisa | | PM PDT | | | | | 08/03/18 at 1245, Until Clarisa | | | | | | | 08/03/18 at 1945 | | | | | | + +-------+ + +---+ + + +---+ | | | + +---+ | dextrose 50 % in water IV 25 mL | | | 25 mL, intravenous, NEEDED, | | | Starting 08/07/18 at 1147, | | | Until Tue08/11/18 at 1812, CBG | | | less than 70 mg/dL if patient | | | unable to take PO, per Adult | | | Hypoglycemia Protocol | | + +---+ | | | + +---+ + +-------+ +-------+---+---------+ | enoxaparin (LOVENOX) injection | Given | 08/11/19 | 40 mg | | Abdomen | | 40 mg 40 mg, subcutaneous, EVERY | | 19 7:56 | | | | | EVENING, First dose on Tue | | PM PDT | | | | | 08/08/18 at 2100, Until | | | | | | | Discontinued | | | | | | + +-------+ +-------+---+---------+ +-------+ +-------+---+---------+ | Given | 08/10/19 | 40 mg | | Abdomen | | | 19 8:44 | | | | | | PM PDT | | | | +-------+ +-------+---+---------+ | Given | 08/09/19 | 40 mg | | Abdomen | | | 19 9:26 | | | | | | PM PDT | | | | +-------+ +-------+---+---------+ + +---+ | | | + +---+ | glucagon (GLUCAGEN) injection 1 | | | mg 1 mg, intramuscular, | | | NEEDED, Starting Tue08/04/18 at | | | 0905, Until Tue08/11/18 at 1812, | | | CBG less than 70 mg/dL per Adult | | | Hypoglycemia Protocol | | + +---+ | | | + +---+ | glucose chewable tablet 16 g | | | 16 g, oral, NEEDED, Starting | | | 08/07/18 at 1147, Until Fri | | | 08/11/18 at 1812, CBG less than 70 | | | mg/dL per Adult Hypoglycemia | | | Protocol | | + +---+ | | | + +---+ + +-------+ +--------+---+ + | heparin 5000 unit in NaCl 0.9 % | Given | 08/04/19 | 500 mL | | Surgical | | 500 mL (10 units/mL) flush | | 19 2:50 | | | Site | | solution INTRAPROCEDURE PRN, | | PM PDT | | | | | Starting [facility] 08/03/18 at 1450, | | | | | | | Until Clarisa 08/03/18 at 1945 | | | | | | + +-------+ +--------+---+ + +---+---+ | | | +---+---+ + +-------+ +-------+---+---+ | metoprolol succinate | Given | 08/12/19 | 50 mg | | | | (TOPROL-XL) tablet 50 mg 50 mg, | | 19 9:22 | | | | | oral, DAILY, First dose on Tue | | AM PDT | | | | | 08/04/18 at 0930, Until | | | | | | | Discontinued | | | | | | + +-------+ +-------+---+---+ +-------+ +-------+---+---+ | Given | 08/11/19 | 50 mg | | | | | 19 9:08 | | | | | | AM PDT | | | | +-------+ +-------+---+---+ | Given | 08/10/19 | 50 mg | | | | | 19 9:55 | | | | | | AM PDT | | | | +-------+ +-------+---+---+ +---+---+ | | | +---+---+ + +-------+ + +---+ + | NaCl 0.9 % irrigation | Given | 08/04/19 | 1,000 mL | | Surgical | | INTRAPROCEDURE PRN, Starting Clarisa | | 19 1:22 | | | Site | | 08/03/18 at 1322, Until Clarisa | | PM PDT | | | | | 08/03/18 at 1945 | | | | | | + +-------+ + +---+ + +---+---+ | | | +---+---+ + + + +---------+---+ + | nicotine (NICOTROL) 7 mg/24 hr | Applied | 08/12/19 | 1 patch | | Left Arm | | 1 patch 1 patch, transdermal, | Patch | 19 9:21 | | | | | DAILY, First dose on Tue08/07/18 | | AM PDT | | | | | at 1730, Until Discontinued | | | | | | + + + +---------+---+ + + + +---------+---+ + | Applied Patch | 08/11/19 | 1 patch | | Right | | | 19 9:08 | | | Arm | | | AM PDT | | | | + + +---------+---+ + | Applied Patch | 08/10/19 | 1 patch | | Left Arm | | | 19 9:55 | | | | | | AM PDT | | | | + + +---------+---+ + +---+---+ | | | +---+---+ + +-------+ +-------+---+ + | papaverine injection | Given | 08/04/19 | 30 mg | | Surgical | | INTRAPROCEDURE PRN, Starting Clarisa | | 19 2:55 | | | Site | | 08/03/18 at 1455, Until Clarisa | | PM PDT | | | | | 08/03/18 at 1945 | | | | | | + +-------+ +-------+---+ + +---+---+ | | | +---+---+ + +-------+ +-------+---+---+ | spironolactone (ALDACTONE) | Given | 08/12/19 | 25 mg | | | | tablet 25 mg 25 mg, oral, DAILY, | | 19 9:22 | | | | | First dose on Tue08/04/18 at | | AM PDT | | | | | 0900, Until Discontinued | | | | | | + +-------+ +-------+---+---+ +-------+ +-------+---+---+ | Given | 08/11/19 | 25 mg | | | | | 19 9:08 | | | | | | AM PDT | | | | +-------+ +-------+---+---+ | Given | 08/10/19 | 25 mg | | | | | 19 9:56 | | | | | | AM PDT | | | | +-------+ +-------+---+---+ +---+---+ | | | +---+---+ + +-------+ +--------+---+ + | thrombin 5000 unit topical | Given | 08/04/19 | 5,000 | | Surgical | | solution INTRAPROCEDURE PRN, | | 19 1:19 | Units | | Site | | Starting Clarisa 08/03/18 at 1319, | | PM PDT | | | | | Until Clarisa 08/03/18 at 1945 | | | | | | + +-------+ +--------+---+ + +---+---+ | | | +---+---+ + +-------+ + +---+---+ | zinc sulfate (ORAZINC) tablet | Given | 08/12/19 | 25 mg | | | | 25 mg elemental 25 mg elemental | | 19 9:23 | elementa | | | | (110 mg total salt), oral, DAILY, | | AM PDT | l | | | | 15 doses, First dose on Fri | | | | | | | 08/04/18 at 0900, Last dose on Tue | | | | | | | 08/18/18 at 0900 | | | | | | + +-------+ + +---+---+ +-------+ + +---+---+ | Given | 08/11/19 | 25 mg | | | | | 19 12:47 | elementa | | | | | PM PDT | l | | | +-------+ + +---+---+ | Given | 08/10/19 | 25 mg | | | | | 19 9:55 | elementa | | | | | AM PDT | l | | | +-------+ + +---+---+ + +---+ | | | + +---+ | zinc sulfate (ORAZINC) tablet | | | 25 mg elemental 25 mg elemental | | | (110 mg total salt), feeding | | | tube, DAILY, 15 doses, First dose | | | on Tue08/04/18 at 0900, Last | | | dose on Tue08/18/18 at 0900 | | + +---+ | | | + +---+ documented in this encounter
--- OUTSIDE RECORDS SUMMARY | ~2019-10-22 | XMS | Encounter Summary ---
Demographics + + + | Address | [address] | | | [place] [address] | + + + | Home Phone | | + + + | Preferred Language | Unknown | + + + | Marital Status | | + + + | Rastafarian Affiliation | Unknown | + + + | Race | White | + + + | Ethnic Group | Not or | + + + Author + + + | Author | [facility] | | | and [place] | + + + | Organization | [facility] | | | and [...] Team Providers + +------+ + | Care Secretary Of State Name | Role | Phone | + +------+ + PCP | Unavailable | + +------+ + Encounter Details +--------+ + + + + | Date | Type | Department | Care Team | Description | +--------+ + + + + | 05/20/ | Hospital | [facility] | | | | 1991 - | Encounter | MED CTR GENERIC IP | | | | | | CONV DEPT [address] | | | | 05/24/ | | [place], | | | | 1992 | | [place] [address] | | | | | | [phone] | | | +--------+ + + + [...]
--- OUTSIDE RECORDS SUMMARY | ~2019-10-22 | XMS | Encounter Summary ---
Demographics + + + | Address | [address] | | | [place] [address] | + + + | Home Phone | | + + + | Preferred Language | Unknown | + + + | Marital Status | | + + + | Adventist Affiliation | Unknown | + + + | Race | White | + + + | Ethnic Group | Not or | + + + Author + + + | Author | [facility] | | | and [place] | + + + | Organization | [facility] | | | and [...] Team Providers + +------+ + | Care Process Design Engineer Name | Role | Phone | + +------+ + PCP | Unavailable | + +------+ + Encounter Details +--------+ + + + + | Date | Type | Department | Care Team | Description | +--------+ + + + + | 06/18/ | Hospital | [facility] | | | | 1991 | Encounter | MED CTR XRAY [address] | | | | | | [place] | | | | | | [place] [address] | | | | | | [phone] | | | +--------+ + + + [...]
--- OUTSIDE RECORDS SUMMARY | ~2019-10-22 | XMS | Encounter Summary ---
Demographics + + + | Address | [address] | | | [place] [address] | + + + | Home Phone | | + + + | Preferred Language | Unknown | + + + | Marital Status | | + + + | Scientology Affiliation | MET | + + + | Race | White | + + + | Ethnic Group | Not or | + + + Author + + + | Author | [facility] | + + + | Organization | [facility] | + + + | Address | [...] Team Providers + +------+ + | Care Inspector Material Disposition Name | Role | Phone | + [...] | +--------+ + + + + | 05/08/ | Anesthesia | 6A Intra Op 3181 | Carmen Quispe MD | | | 2019 | Event | [address] | [address] | | | | | [facility] | [address] | | | | | Hospital Admitting | [place], [place] | | | | | Desk Located on the | [address] | | | | | 9th floor | [phone] | | | | | [facility] [place] | | | | | | [address] | Josse Reddy MD | | | | | | [address] | | | | | | [facility] | | | | | | [place] [address] | | | | | | [phone] | | | | | | | | +--------+ + + + + Anesthesia Record + + + + + | Procedure Name | Responsible | Anesthesia Start | Anesthesia Stop Time | | | Anesthesiologist | Time | | + + + + + | RIGHT SYNTHETIC | Carmen Quispe MD | 05/08/18 0827 | 05/08/18 1135 | | CRANIOPLASTY; (Right | | | | | Head) | | | | + + + + + +----+---+ + + | Da | T | Event | Comment | | te | i | | | | | m | | | | | e | | | +----+---+ + + | 03 | 0 | Eq Check | Anesthesia machine checked Equipment verified | | /1 | 7 | | | | 8/ | 3 | | | | 20 | 0 | | | | 19 | | | | +----+---+ + + | | 0 | | | | | 8 | | | | | 2 | | | | | 6 | | | +----+---+ + + | | 0 | An Start | | | | 8 | | | | | 2 | | | | | 7 | | | +----+---+ + + | | 0 | Pt. Check | Prior to anesthesia start, pt. Identified, examined, chart | | | 8 | | reviewed, LAURA held, anesthetic plan made or approved by | | | 3 | | attending anesthesiologist. NPO status confirmed as appropriate | | | 1 | | for procedure Preoperative evaluation: unchanged | +----+---+ + + | | 0 | An Start | | | | 8 | Data | | | | 3 | | | | | 1 | | | +----+---+ + + | | 0 | Vitals | Monitors applied Vital signs checked Patient ready for anesthesia | | | 8 | Checked | | | | 4 | | | | | 5 | | | +----+---+ + + | | 0 | Quick Note | LLE bp 68/35 after 25 mcg fentanyl. RLE 88mmHg, RUE 110mmhg | | | 8 | | | | | 4 | | | | | 5 | | | +----+---+ + + | | 0 | ETT | | | | 9 | | | | | 0 | | | | | 7 | | | +----+---+ + + | | 0 | Ready | | | | 9 | | | | | 2 | | | | | 1 | | | +----+---+ + + | | 0 | Abx | | | | 9 | Administere | | | | 3 | d | | | | 5 | | | +----+---+ + + | | 0 | Timeout | | | | 9 | | | | | 4 | | | | | 0 | | | +----+---+ + + | | 0 | Incision | | | | 9 | | | | | 5 | | | | | 6 | | | +----+---+ + + | | 1 | Intraop and | - Patient/Allergies/Procedure - Relevant PMH - Relevant data | | | 0 | Med | (labs/imaging) - Anesthetic (airway, infusions, drug redoses) - | | | 2 | Handoff | Lines/Drains - I/O - Current Phase and significant events - | | | 1 | | Emergence/dispo plans, post-op concerns Fentanyl 150 mcg | +----+---+ + + | | 1 | ICU Handoff | Procedure Anesthetic Brief History Relevant | | | 0 | Call | Meds/Labs/Echo/Imaging Difficult airway? Intraoperative Course: | | | 5 | | Lines/drains EBL Significant Events Meds: Infusions, | | | 6 | | Antibiotics/Redosing, Paralytics (last dose and time), Analgesic | | | | | Plan Central line- will review image and place order in PACU | | | | | Surgeon concerns | +----+---+ + + | | 1 | Surgery end | | | | 1 | | | | | 0 | | | | | 4 | | | +----+---+ + + | | 1 | An Extubate | Neuromuscular function Intact. Pharynx suctioned. Patient obeys | | | 1 | | commands. Adequate pulmonary mechanics. | | | 1 | | | | | 7 | | | +----+---+ + + | | 1 | an stop | | | | 1 | data | | | | 2 | | | | | 2 | | | +----+---+ + + | | 1 | PACU Rpt | | | | 1 | Given | | | | 3 | | | | | 5 | | | +----+---+ + + | | 1 | Anesthesia | | | | 1 | End | | | | 3 | | | | | 5 | | | +----+---+ + + | | 1 | Post-Op | | | | 2 | Page | | | | 1 | | | | | 5 | | | +----+---+ + + +------+ | Meds | +------+ + + + | Name | Total | + + + | propofol (DIPRIVAN) 200 mg | 70 mg | + + + | lidocaine 2% | 200 mg | + + + | rocuronium | 50 mg | + + + | fentaNYL | 450 mcg | + + + | ePHEDrine | 10 mg | + + + | PHENYLEPHrine | 400 mcg | + + + | vancomycin | 1 g | + + + | gentamicin (custom) | 50 mg | + + + | norepinephrine INF (8mg/250mL) | 174.04 mcg | + + + | metoprolol | 2 mg | + + + | esmolol | 60 mg | + + + | labetalol | 10 mg | + + + | sugammadex (BRIDION) IV | 200 mg | + + + | NS | 1,000 mL | + + + | LR | 188.33 mL | + + + + + | Name | + + | O2 FR Avance (Total Liters) | + + | Air FR Avance (l/min) | + + | Insp Sevo | + + | Et Sevo | + + | EtN2O % | + + | Insp N2O % | + + + + | No blood administrations on file. | + + +--------+ + + + | Type | Details | Placement | Removal | +--------+ + + + | Periph | Clinic Staff; Left; Dorsal; Hand; | 05/08/18 0949 by | 05/09/18 1012 by | | eral | 16 g; 05/09/18; 1012; Per order | | Renetta John RN | | IV | | | | +--------+ + + + | Wound | 12/03/17; 2199; Yes; Left; thumb; | 12/03/172199 by | 07/11/181336 by | | | Other (Comment); 07/11/18; 1336 | Tyra Sandoval RN | Patria Vasques RN | +--------+ + + + | Wound | 12/03/17; 2199; Yes; Midline; | 12/03/172199 by | 08/11/18 1206 by | | | coccyx; Pressure ulcer (stage | Greg Pittman RN | Vida Rogel RN | | | II); Other (Comment) (ambulate | | | | | drive from [email or web address]); 08/11/18; | | | | | 1206 | | | +--------+ + + + | Incisi | 12/05/17; Right; adb- upper | 12/05/17 0000 by | 07/11/18 135 by | | on | quadrant; 07/11/18; 1354 | Silvia Byrne RN | Patria Vasques RN | +--------+ + + + | Incisi | 12/05/17; 2126; Horacio Hewitt MD; | 12/05/172126 by | 07/11/18 1337 by | | on | Right; head; 07/11/18; 1337 | Kobe Chavez RN | Patria Vasques RN | +--------+ + + + | Incisi | 05/08/18; Rakesh TRINIDAD; Right; head- | 05/08/18 0000 by | 07/11/18 1355 by | | on | frontal; 07/11/18; 1355 | Gurvinder Rodriguez RN | Patria Vasques RN | +--------+ + + + | Periph | 05/08/18; 0731; Chana Henson | 05/08/18 0731 by | 05/10/18 0700 by | | rosa Hagen RN; Left; Forearm; 18 g; | María Elena Grijalva, | Fabienne Navarro RN | | IV | Positive; 05/10/18; 0700; No | RN | | | | longer present | | | +--------+ + + + | Urethr | 05/08/18; 0845; Michael HUERTAS; | 05/08/18 0845 by | 05/09/18 0444 by | | al | Temp-probe Kennedy; 16 Fr.; 10 mL; | Gurvinder Rodriguez RN | Nataliya Hagen | | Cathjessica | 05/09/18; 0444; Per order, Per | | ALEKSANDAR Mcintosh | | er | protocol | | | +--------+ + + + | ETT | 05/08/18; 0907 (created via | 05/08/18 09 by | 05/08/18 111 by | | | procedure documentation); | Jeffrey Lopes MD | Josse Reddy MD | | | Endotracheal Tube; 7; Oral; | | | | | Cuffed; 05/08/18; 1117 | | | +--------+ + + + | Arteri | 05/08/18; 1010 (created via | 05/08/18 1010 by | 05/09/18 0014 by | | al | procedure documentation); | Jeffrey Lopes MD | Nataliya Hagen | | Line | Standard; Left; Radial; 20g; | | ALEKSANDAR Mcintosh | | | 05/09/18; 0014; Per order, Per | | | | | protocol | | | +--------+ + + + [...] encounter OR Notes Anesthesia Postprocedure Evaluation - Rodger Smith MD - 05/08/2018 12:34 PM PDTForma tting of this note might be different from the original. Cielo Bell [id number] Allergies Allergen Reactions [place] Tar Hives Betadine [Povidone-Iodine (With Soap)] Rash Cipro [Ciprofloxacin] Nausea and Vomiting Codeine Hcl Nausea and Vomiting Sulfa (Sulfonamide Antibiotics) Erythema Past Surgical History Procedure Laterality Date Partial thyroidectomy Right Hysterectomy Bladder suspension 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 [employer] shunt Tympanoplasty Right 1987 Lumpectomy of left breast 1978 Coronary stent placement 12/28/2014 status post stent placement in the mid LAD Removal of [employer] [facility] [employer] shunt Cholecystectomy Temp: 35.9 C (96.6 F) Heart Rate: 66 Resp: 17 BP: 116/61 SpO2: 92 % EVALUATION VS (BP, HR, RR, SpO2, and Temp) and hydration status are stable ROS including Cards, Resp, Neuro, and GI without evidence of adverse effects Patient exhibits PONV Pain controlled No altered mental status COMPLICATIONS No adverse events nesthesia Procedu re Notes - Jeffrey Lopes MD - 05/08/2018 10:25 AM PDTAssociated Order(s): ANE ETTProcedure Reason for Intubation: For surgical procedure, Location Performed: OR , Patient was preoxyg enated Mask Ventilation Grade 2 - Ventilated by mask with oral airway/adjuvant Intubation Blade type: Nidhi , Blade size: 3, Atraumatic laryngoscopy: Atraumatic Laryngoscopy, In tubation adjuncts: N/A , Laryngoscopic view: Grade I, Fiberoptics used: N/A , Number of Atte mpts: 1, Positive for EtCO2: Yes, Breath sounds: Bilateral and equal ETT ETT Size: 7 ETT secured with: adhesive tape Depth at Lip: 20 Cm Narrative Attending physically present Attending: CARMEN BERRIOS Performed by Resident JEFFREY LOPES Atraumatic airway instrumentation. ETT Secured at lip after confirming bilateral breath so unds, chest rise, and EtCO2 using tape with attention to avoiding applying tape to vermillio n border. Soft bite block placed in mouth within molars and attention given to avoiding comp ression of tongue or lips. nesthesia Procedure No Carmen Quiroz MD - 05/08/2018 10:09 AM PDTAssociated Order(s): ANE ART LINEProcedure ART LINE Procedure Information Inserted: Before Induction 5 minutes to perform. Type Catheter: Arrow kit Indications: Frequent lab draws and Beat to beat blood pressure monitoring Location Performed: OR Informed Consent: Included in anesthesia consent Protective Barrier: Cap, Mask, Hand scrub and Sterile Gloves Skin Prep: Chloraprep Draped: Partially draped Anesthesia Method: Local infiltration w/lidocaine Insertion side: Left Insertion Site: Radial Access device: 20g Line secured by:StatLock, Tape and Dressing Applied Artery locater technique: Ultrasound Ultrasound image: Printed and placed in patients chart Assessment Number of attempts: 1st Complications: None Assessment: Catheter connected to pressure line and flushed, catheter manually flushed, Kamala erated procedure well and Perfusion checked distal to catheter Attending physically present Attending Name: CARMEN BERRIOS Performed by Resident Name: JEFFREY LOPES nesthesia Preprocedure Evaluation - Carmen Berrios MD - 05/08/2018 8:25 AM PDTFormatting of this note might be di fferent from the original. 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 Coronary arteriosclerosis in [place] artery Acute boy-WB-ykistoqps myocardial infarction (HCC) Continuous tobacco abuse Hyperglycemia Draining postoperative wound Encounter for long-term (current) use of antibiotics Osteomyelitis (HCC) Acute osteomyelitis of cranium (HCC) Tobacco dependence Past Surgical History Procedure Laterality Date Partial thyroidectomy Right Hysterectomy Bladder suspension 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 [employer] shunt Tympanoplasty Right 1987 Lumpectomy of left breast 1979 Coronary stent placement 12/28/2014 status post stent placement in the mid LAD Removal of [employer] at [employer] shunt Cholecystectomy Current Medication List Name Sig Last Dose ASPIRIN 81 MG TABLET,DELAYED RELEASE Take 1 tablet by mouth once daily. Do not restart aspi rin until 2 weeks after surgery-12/20 Within last 7 days ATORVASTATIN 80 MG TABLET Take 80 mg by mouth once daily. 05/07/2018 IPRATROPIUM-ALBUTEROL 0.5 MG-3 MG(2.5 MG BASE)/3 ML NEBULIZATION SOLN Inhale 3 mL two times daily. 05/07/2018 LISINOPRIL 5 MG TABLET Take 5 mg by mouth once daily. 05/07/2018 METOPROLOL SUCCINATE ER 50 MG TABLET,EXTENDED RELEASE 24 HR Take 50 mg by mouth once daily. 05/07/2018 NITROGLYCERIN 0.[address] under tongue. Not Taking SPIRONOLACTONE 25 MG TABLET Take 25 mg by mouth once daily. 05/07/2018 Lab Results Component Value Date RATE 94 12/04/2017 ATRIALRATE 93 12/04/2017 NE 155 12/04/2017 QRS 100 12/04/2017 QT 352 12/04/2017 QTC 462 04/12/2008 PAXIS 82 12/04/2017 RAXIS -41 12/04/2017 TAXIS 121 12/04/2017 EKGDX 04/12/2008 Normal sinus rhythm Normal ECG "I have personally interpreted this report, either alone or with a trainee." Confirmed by KAREN ROMERO ([id number]) on 12-Apr-2008 15:40:13 Anesthesia Plan Comments ASA ASA 4 NPO Status NPO Status: NPO by protocol Monitors/Lines to be used Standard, WYATT, CVP and Art line Anesthetic Consideration Two large bore PIV, IV when asleep and Post-op ICU Induction intravenous induction Anesthetic Technique General; Obstetric Anesthesia Post-Op Pain Plan IV analgesics; Blood Products Informed Consent PARQ discussed with: patient and spouse, Procedures, Alternatives, Risks, and Questions di scussed Dental Risk discussed with patient ; ; Date Consent Series Given: 05/08/2018 8:25 AM Code status in OR Patients Code Status in OR: FULL 05/08 10:01 AM documented in this enco unter Miscellaneous Notes PMC/ANE PreOp Note - Jeffrey Lopes MD - 05/05/2018 5:25 PM PDTROS: HPI: Cielo Bell is a 68 y.o. female here for synthetic cranioplasty and radial fore arm free flap with split thickness graft. Possible anterior lateral dorsi free flap. 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 Pt has been off of aspirin for a week leading up to the surgery. Discussed with NSGY team w josh are aware pt has bare metal stents placed in 2016. They are willing to proceed in the set ting of potential thrombosis they plan to restart aspirin at an earlier time. Prior Anest hetic Problems: No Pulmonary: Current every day smoker [...] infarction. NSR. Summary: -- Echo (03/02/17 - [facility]): TDS, EF 35-40%, apical 1/3 is aneurysmal, with akinesis in focal a reas of dyskinesis. Grade 1 diastolic dysfunction. Normal RV size and function. Mild AI -- Cardiac Cath (09/15/16): Left ventricular end-diastolic pressure 25. LM-normal. Proximal- mid LAD with patent stents, 40% ISR, FFR 0.85. LCx-normal, OM2-20%. RCA proximal-20%, mid-30 % -- Lexiscan Cardiolite stress test (07/27/16-[facility]): Severe LV enlargement, marked scarring (co mprising approximately 60% of the entire LV) of the entire anterior, anteroseptal, mid and d istal inferior, inferoseptal, inferolateral and anterolateral segments with no evidence of i schemia, EF 16% -- Echo (12/28/14-[facility]): EF 54%, apical hypokinesis, grade 1 diastolic dysfunction, mild AI -- Cardiac Cath / PCI (12/28/14 - [facility]): LVEDP 35, LM-normal, mid LAD- occluded > [...] Grade 1 LV diastolic dysfunction. Functional Capacity: Moderate - cyanosis, palpitations and syncope no PAD chest pain atypical CHF EF by Echo: 35-40 [place] ZULUAGA Classification:III Type:diastolic and left heart hypertension well controlled CAD Sx (BMS x2 LAD 12/2015) medically managed cardiac stents past OK Last OK: > 1 year valvular pr oblems/murmurs AR no pacemaker/ICD GI/Hepatic: no GI Bleed no OTHER GI GERD Control: Well controlled no liver disease no hepatitis Renal: Lab Results Component Value Date NA 137 12/07/2017 K 5.0 12/07/2017 CL 104 12/07/2017 BICARB 22 12/07/2017 BUN 17 12/07/2017 CR 0.8 02/24/2018 GLU 92 12/07/2017 CA 8.4 12/07/2017 AST 12 03/03/2008 ALT 14 03/03/2008 AP 97 03/03/2008 TBILI 0.7 03/03/2008 TP 7.4 03/03/2008 ALB 2.5 12/07/2017 ANIONGAP 11 12/07/2017 ANIONALBCOR 14 12/07/2017 no renal failure no dialysis Endo: no Diabetes: no Hx Corticosteroid Use Neuro/Psych: [id number] 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 has: no active bleeding Hemoglobin Disorders anemia Infectious Disease: MRSA Skin: no open wounds Physical Exam General: Appearance: Older than stated age and No distress LOC: Alert Arousability: Arouses to verbal stimuli HEENT: Normocephalic/Atraumatic Airway: Dentition: dentures-upper Mallampati: 2 TM Distance:> 6 cm Cormier: No C-Spine ROM: Normal Neck Anatomy: Normal Jaw Protrusion: Normal (lower incisors go above upper incisors) Pulmonary: Respiratory: pulmonary exam normal Breath Sounds: wheezes Cardiovascular: Rhythm: Regular Rate: Normal MC/ANE PreOp Note - Florecita He RN - 04/25/2018 9:58 AM PST ROS: HPI: Prior Anesthetic Problems: Yes PONV Pulmonary: 50 year smoking hx; declines use of inhalers, oxygen cough chronic Cardiovascular: Within Defined Limits except as noted below Functional Capacity: Low hypertension well cont rolled CAD Sx GI/Hepatic: Within Defined Limits except as noted below no GERD Renal: Within Defined Limits except as noted below Urology/Industrial Electrical Engineer: Within Defined Limits except as noted below Endo: Within Defined Limits except as noted below Neuro/Psych: Within Defined limits except as noted below no Psych Disorder Current pain score: 0 Musculoskeletal: Within Defined Limits except as noted below Heme/Onc: Within Defined Limits except as noted below Infectious Disease: MRSA posterior neck 2007 MRSA no VRE Skin: integumentary system within defined limits AutoImmune Disorders: autoimmune disorders within defined limits 68 y.o. F scheduled for 05/08/2018 Cranioplasty with free flap (RIGHT) at [facility] by Paramjit Huber MD. Past medical hx is significant for 50 year smoking hx (strongly encouraged pt to stop smo cayetano), COPD with chronic cough, exertional dyspnea(declines use of oxygen, inhalers), HTN, C AD ( /p revascularization with coronary stent; pt is on optimal medical mgmt with ASA, stati n and beta mukul. Pt will interrupt aspirin for 7 days before the procedure), +MRSA (2008 , neck), PONV Vitals 02/24/2018 02/24/2018 Systolic 102 109 Diastolic 66 60 Pulse 75 Temperature 97.3 Respirations 12 Weight 51.3 kg (113 lb 1.5 oz) 51.256 kg (113 lb) Height (in) 59.000 Height (cm) 149.9 cm BMI SpO2 94 BSA 1.46 m2 1.46 m2 Pain Scale 0 - Zero 0 - Zero Most recent H&P reviewed, located under [facility] encounter tab, [facility] v isit by Dr.Cornelia Lee dated 02/24/2018. Labs pending: Most recent EKG dated 12/05/2017--see EPIC Current H/P to be completed pre-procedure on DOS Patient interview complete and pertinent updates documented under patient history. Patient received pre-op instructions per AVS and verbalized good understanding. Phone appoi ntment completed as scheduled. Transportation: daughter and son in law documented in this e ncounter Plan of Treatment Not on filedocumented as of this encounter Procedures + +--------+ + + + | Procedure Name | Priori | Date/Time | Associated Diagnosis | Comments | | | ty | | | | + +--------+ + + + | ANE ETT | Routin | 05/08/2018 | | Results for this | | | e | 10:25 AM | | procedure are in the | | | | PDT | | results section. | + +--------+ + + + | LENORA ART LINE | Routin | 05/08/2018 | | Results for this | | | e | 10:09 AM | | procedure are in the | | | | PDT | | results section. | + +--------+ + + + documented in this encounter Results LENORA ETT (05/08/2018 10:25 AM PDT) + + + | Narrative | Performed At | + + + | Jeffrey Lopes MD 05/08/2018 10:25 AM Procedure Reason for | | | Intubation: For surgical procedure, Location Performed: OR , Patient | | | was preoxygenated Mask Ventilation Grade 2 - Ventilated by mask | | | with oral airway/adjuvant Intubation Blade type: Nidhi , | | | Blade size: 3, Atraumatic laryngoscopy: Atraumatic Laryngoscopy, | | | Intubation adjuncts: N/A , Laryngoscopic view: Grade I, Fiberoptics | | | used: N/A , Number of Attempts: 1, Positive for EtCO2: Yes, Breath | | | sounds: Bilateral and equal ETT ETT Size: 7 ETT secured | | | with: adhesive tape Depth at Lip: 20 Cm Narrative Attending | | | physically present Attending: CARMEN BERRIOS Performed by | | | Resident JEFFREY LOPES Atraumatic airway instrumentation. ETT | | | Secured at lip after confirming bilateral breath sounds, chest rise, | | | and EtCO2 using tape with attention to avoiding applying tape to | | | manav border. Soft bite block placed in mouth within molars and | | | attention given to avoiding compression of tongue or lips. | | | | | + + + ANE ART LINE (05/08/2018 10:09 AM PDT) + + + | Narrative | Performed At | + + + | Carmen Berrios MD 05/08/2018 10:17 AM Procedure ART LINE | | | Procedure Information Inserted: Before Induction 5 minutes to | | | perform. Type Catheter: Arrow kit Indications: Frequent lab draws | | | and Beat to beat blood pressure monitoring Location Performed: OR | | | Informed Consent: Included in anesthesia consent Protective Barrier: | | | Cap, Mask, Hand scrub and Sterile Gloves Skin Prep: Chloraprep | | | Draped: Partially draped Anesthesia Method: Local infiltration | | | w/lidocaine Insertion side: Left Insertion Site: Radial Access | | | device: 20g Line secured by:StatLock, Tape and Dressing Applied | | | Artery locater technique: Ultrasound Ultrasound image: Printed and | | | placed in patients chart Assessment Number of attempts: 1st | | | Complications: None Assessment: Catheter connected to pressure line | | | and flushed, catheter manually flushed, Tolerated procedure well and | | | Perfusion checked distal to catheter Attending physically present | | | Attending Name: CARMEN BERRIOS Performed by Resident Name: | | | JEFFREY LOPES | | + + + + + | Procedure Note | + + | Carmen Berrios MD - 05/08/2018 10:09 AM PDT ProcedureART LINEProcedure | | InformationInserted: Before Induction5 minutes to perform.Type Catheter: Arrow kit | | Indications: Frequent lab draws and Beat to beat blood pressure monitoringLocation | | Performed: [place] Informed Consent: Included in anesthesia consent Protective Barrier: Cap, | | Mask, Hand scrub and Sterile GlovesSkin Prep: Chloraprep Draped: Partially | | drapedAnesthesia Method: Local infiltration w/lidocaine Insertion side: LeftInsertion | | Site: Radial Access device: 20g Line secured by:StatLock, Tape and Dressing Applied | | Artery locater technique: Ultrasound Ultrasound image: Printed and placed in patients | | chart AssessmentNumber of attempts: 1stComplications: None Assessment: Catheter | | connected to pressure line and flushed, catheter manually flushed, Tolerated procedure | | well and Perfusion checked distal to catheterAttending physically present Attending | | Name: CARMEN BERRIOS Performed by Resident Name: JEFFREY LOPES | |Anesthesia Method: Local infiltration w/lidocaine | |Insertion side: Left | |Insertion Site: Radial | |Access device: 20g | |Line secured by:StatLock, Tape and Dressing Applied | |Artery locater technique: Ultrasound | |Ultrasound image: Printed and placed in patients chart | | | |Assessment | |Number of attempts: 1st | |Complications: None | |Assessment: Catheter connected to pressure line and flushed, catheter manually flushed, Kamala erated procedure well and Perfusion checked distal to catheter | |Attending physically present Attending Name: CARMEN BERRIOS | | | | | |Performed by Resident Name: JEFFREY LOPES | + + documented in this encounter Visit Diagnoses Not on filedocumented in this encounter Administered Medications + +--------+ +-------+------+------+ | Medication Order | MAR | Action | Dose | Rate | Site | | | Action | Date | | | | + +--------+ +-------+------+------+ | ePHEDrine injection | Given | 05/09/19 | 10 mg | | | | intravenous, INTRAPROCEDURE PRN, | | 19 9:43 | | | | | Starting Tue05/08/18 at 0943, | | AM PDT | | | | | Until Tue05/08/18 at 1122 | | | | | | + +--------+ +-------+------+------+ +---+---+ | | | +---+---+ + +-------+ +-------+---+---+ | esmolol (BREVIBLOC) injection | Given | 05/09/19 | 20 mg | | | | intravenous, INTRAPROCEDURE PRN, | | 19 11:16 | | | | | Starting Tue05/08/18 at 1032, | | AM PDT | | | | | Until Tue05/08/18 at 1122 | | | | | | + +-------+ +-------+---+---+ +-------+ +-------+---+---+ | Given | 05/09/19 | 20 mg | | | | | 19 10:41 | | | | | | AM PDT | | | | +-------+ +-------+---+---+ | Given | 05/09/19 | 20 mg | | | | | 19 10:32 | | | | | | AM PDT | | | | +-------+ +-------+---+---+ +---+---+ | | | +---+---+ + +-------+ +--------+---+---+ | fentaNYL (SUBLIMAZE) injection | Given | 05/09/19 | 50 mcg | | | | intravenous, INTRAPROCEDURE PRN, | | 19 11:02 | | | | | Starting Tue05/08/18 at 0907, | | AM PDT | | | | | Until Tue05/08/18 at 1122 | | | | | | + +-------+ +--------+---+---+ +-------+ +--------+---+---+ | Given | 05/09/19 | 50 mcg | | | | | 19 10:39 | | | | | | AM PDT | | | | +-------+ +--------+---+---+ | Given | 05/09/19 | 50 mcg | | | | | 19 9:58 | | | | | | AM PDT | | | | +-------+ +--------+---+---+ +---+---+ | | | +---+---+ + +-------+ +-------+---+---+ | gentamicin (GARAMYCIN) | Given | 05/09/19 | 50 mg | | | | injection INTRAPROCEDURE PRN, | | 19 9:35 | | | | | Starting Tue05/08/18 at 0935, | | AM PDT | | | | | Until 05/08/18 at 1122 | | | | | | + +-------+ +-------+---+---+ +---+---+ | | | +---+---+ + +-------+ +------+---+---+ | labetalol (TRANDATE) IV | Given | 05/09/19 | 5 mg | | | | injection intravenous, | | 19 11:24 | | | | | INTRAPROCEDURE PRN, Starting Mon | | AM PDT | | | | | 05/08/18 at 1121, Until Mon | | | | | | | 05/08/18 at 1139 | | | | | | + +-------+ +------+---+---+ +-------+ +------+---+---+ | Given | 05/09/19 | 5 mg | | | | | 19 11:21 | | | | | | AM PDT | | | | +-------+ +------+---+---+ +---+---+ | | | +---+---+ + +---------+ +---+-------+---+ | lactated ringers IV | New Bag | 05/09/19 | | 100 | | | INTRAPROCEDURE CONTINUOUS PRN, | | 19 9:23 | | mL/hr | | | Starting Tue05/08/18 at 0923, | | AM PDT | | | | | Until Tue05/08/18 at 1122 | | | | | | + +---------+ +---+-------+---+ +---+---+ | | | +---+---+ + +-------+ +--------+---+---+ | lidocaine (XYLOCAINE MPF) 2 % | Given | 05/09/19 | 200 mg | | | | (20 mg/mL) injection | | 19 9:36 | | | | | intravenous, INTRAPROCEDURE PRN, | | AM PDT | | | | | Starting Tue05/08/18 at 0936, | | | | | | | Until Tue05/08/18 at 1122 | | | | | | + +-------+ +--------+---+---+ +---+---+ | | | +---+---+ + +-------+ +------+---+---+ | metoprolol (LOPRESSOR) | Given | 05/09/19 | 1 mg | | | | injection intravenous, | | 19 10:39 | | | | | INTRAPROCEDURE PRN, Starting Mon | | AM PDT | | | | | 05/08/18 at 1004, Until Mon | | | | | | | 05/08/18 at 1122 | | | | | | + +-------+ +------+---+---+ +-------+ +------+---+---+ | Given | 05/09/19 | 1 mg | | | | | 19 10:04 | | | | | | AM PDT | | | | +-------+ +------+---+---+ +---+---+ | | | +---+---+ + + + + +-------+---+ | norepinephrine (LEVOPHED) | Rate/Dos | 05/09/19 | 0.02 | 1.89 | | | 8mg/250 mL (0.032 mg/mL) IV | e Change | 19 10:24 | mcg/kg/m | mL/hr | | | infusion (RTU) INTRAPROCEDURE | | AM PDT | in | | | | CONTINUOUS PRN, Starting Mon | | | | | | | 05/08/18 at 0922, Until Mon | | | | | | | 05/08/18 at 1122 | | | | | | + + + + +-------+---+ + + + +-------+---+ | Rate/Dose Change | 05/09/19 | 0.03 | 2.83 | | | | 19 10:22 | mcg/kg/m | mL/hr | | | | AM PDT | in | | | + + + +-------+---+ | Rate/Dose Change | 05/09/19 | 0.04 | 3.77 | | | | 19 10:05 | mcg/kg/m | mL/hr | | | | AM PDT | in | | | + + + +-------+---+ +---+---+ | | | +---+---+ + +-------+ +--------+---+---+ | PHENYLEPHrine 100 mcg/mL IV | Given | 05/09/19 | 50 mcg | | | | syringe intravenous, | | 19 11:34 | | | | | INTRAPROCEDURE PRN, Starting Mon | | AM PDT | | | | | 05/08/18 at 0909, Until Mon | | | | | | | 05/08/18 at 1122 | | | | | | + +-------+ +--------+---+---+ +-------+ +---------+---+---+ | Given | 05/09/19 | 50 mcg | | | | | 19 11:32 | | | | | | AM PDT | | | | +-------+ +---------+---+---+ | Given | 05/09/19 | 200 mcg | | | | | 19 9:10 | | | | | | AM PDT | | | | +-------+ +---------+---+---+ +---+---+ | | | +---+---+ + +-------+ +-------+---+---+ | propofol (DIPRIVAN) 200 mg | Bolus | 05/09/19 | 10 mg | | | | intravenous, INTRAPROCEDURE | | 19 10:32 | | | | | CONTINUOUS PRN, Starting Mon | | AM PDT | | | | | 05/08/18 at 0908, Until Mon | | | | | | | 05/08/18 at 1122 | | | | | | + +-------+ +-------+---+---+ +---------+ +-------+---+---+ | New Bag | 05/09/19 | 20 mg | | | | | 19 9:08 | | | | | | AM PDT | | | | +---------+ +-------+---+---+ | New Bag | 05/09/19 | 20 mg | | | | | 19 9:07 | | | | | | AM PDT | | | | +---------+ +-------+---+---+ +---+---+ | | | +---+---+ + +-------+ +-------+---+---+ | rocuronium (ZEMURON) injection | Given | 05/09/19 | 50 mg | | | | intravenous, INTRAPROCEDURE PRN, | | 19 9:07 | | | | | Starting Tue05/08/18 at 0907, | | AM PDT | | | | | Until Tue05/08/18 at 1122 | | | | | | + +-------+ +-------+---+---+ +---+---+ | | | +---+---+ + + + +---+---+---+ | sodium chloride 0.9 % (NS) IV | given by | 05/09/19 | | | | | infusion INTRAPROCEDURE | | 19 11:35 | | | | | CONTINUOUS PRN, Starting Mon | anesthes | AM PDT | | | | | 05/08/18 at 0827, Until Mon | iology | | | | | | 05/08/18 at 1122 | | | | | | + + + +---+---+---+ +---------+ +---+---+---+ | New Bag | 05/09/19 | | | | | | 19 8:27 | | | | | | AM PDT | | | | +---------+ +---+---+---+ +---+---+ | | | +---+---+ + +-------+ +--------+---+---+ | sugammadex (BRIDION) IV | Given | 05/09/19 | 100 mg | | | | INTRAPROCEDURE PRN, Starting Mon | | 19 11:16 | | | | | 05/08/18 at 1111, Until Mon | | AM PDT | | | | | 05/08/18 at 1139 | | | | | | + +-------+ +--------+---+---+ +-------+ +--------+---+---+ | Given | 05/09/19 | 100 mg | | | | | 19 11:11 | | | | | | AM PDT | | | | +-------+ +--------+---+---+ +---+---+ | | | +---+---+ + +-------+ +-----+---+---+ | vancomycin (VANCOCIN) injection | Given | 05/09/19 | 1 g | | | | INTRAPROCEDURE PRN, Starting | | 19 9:35 | | | | | 05/08/18 at 0935, Until Mon | | AM PDT | | | | | 05/08/18 at 1122 | | | | | | + +-------+ +-----+---+---+ +---+---+ | | | +---+---+ documented in this encounter
--- OUTSIDE RECORDS SUMMARY | ~2019-10-22 | XMS | Encounter Summary ---
Demographics + + + | Address | [address] | | | [place] [address] | + + + | Home Phone | | + + + | Preferred Language | Unknown | + + + | Marital Status | | + + + | Zoroastrian Affiliation | MET | + + + | Race | White | + + + | Ethnic Group | Not or | + + + Author + + + | Author | [facility] | + + + | Organization | [facility] | + + + | [...] Team Providers + +------+ + | Care Vulcanizing Press Operator Name | Role | Phone | [...] | +--------+ + + + + | 10/22/ | Anesthesia | 6A Intra Op 3181 | Kay Chavez | | | 2016 | Event | [address] | E, [address] | | | | | [facility] | [address] | | | | | Hospital Admitting | [place], [place] | | | | | Desk Located on the | [address] | | | | | 9th floor | [phone] | | | | | [facility] [place] | | | | | | [address] | Hemanth Edward CRNA | | | | | | [address] | | | | | | [place], | | | | | | [place] [address] | | | | | | [phone] | | | | | | | | +--------+ + + + + Anesthesia Record + + + + + | Procedure Name | Responsible | Anesthesia Start | Anesthesia Stop Time | | | Anesthesiologist | Time | | + + + + + | RIGHT SYNTHETIC | Kay Chavez, | 10/23/15 0736 | 10/23/15 1026 | | CRANIOPLASTY (Right | MD | | | | Head) | | | | + + + + + +----+---+ + + | Da | T | Event | Comment | | te | i | | | | | m | | | | | e | | | +----+---+ + + | 09 | 0 | Eq Check | Anesthesia machine checked Equipment verified | | /0 | 6 | | | | 1/ | 2 | | | | 20 | 2 | | | | 16 | | | | +----+---+ + + | | 0 | | | | | 7 | | | | | 1 | | | | | 7 | | | +----+---+ + + | | 0 | Pt. Check | Prior to anesthesia start, pt. Identified, examined, chart | | | 7 | | reviewed, PARQ held, anesthetic plan made or approved by | | | 3 | | attending anesthesiologist. NPO status confirmed as appropriate | | | 3 | | for procedure Preoperative evaluation: unchanged | +----+---+ + + | | 0 | An Start | | | | 7 | | | | | 3 | | | | | 6 | | | +----+---+ + + | | 0 | An Start | | | | 7 | Data | | | | 3 | | | | | 8 | | | +----+---+ + + | | 0 | Vitals | Monitors applied Vital signs checked Patient ready for anesthesia | | | 7 | Checked | | | | 4 | | | | | 3 | | | +----+---+ + + | | 0 | Abx | | | | 7 | Administere | | | | 4 | d | | | | 5 | | | +----+---+ + + | | 0 | Quick Note | Preop IV infiltrated prior to induction and upon arrival to OR; | | | 7 | | 18 gauge started in OR | | | 4 | | | | | 5 | | | +----+---+ + + | | 0 | Std. Airway | | | | 7 | Mgt. | | | | 5 | | | | | 5 | | | +----+---+ + + | | 0 | Ready | | | | 7 | | | | | 5 | | | | | 8 | | | +----+---+ + + | | 0 | Timeout | | | | 8 | | | | | 3 | | | | | 7 | | | +----+---+ + + | | 0 | Incision | | | | 8 | | | | | 3 | | | | | 9 | | | +----+---+ + + | | 1 | Surgery end | | | | 0 | | | | | 0 | | | | | 9 | | | +----+---+ + + | | 1 | An Extubate | Neuromuscular function Intact. Pharynx suctioned. Patient obeys | | | 0 | | commands. Adequate pulmonary mechanics. | | | 1 | | | | | 3 | | | +----+---+ + + | | 1 | an stop | | | | 0 | data | | | | 1 | | | | | 5 | | | +----+---+ + + | | 1 | Anesthesia | | | | 0 | End | | | | 2 | | | | | 6 | | | +----+---+ + + +------+ | Meds | +------+ + + + | Name | Total | + + + | propofol | 110 mg | + + + | lidocaine 2% | 100 mg | + + + | fentaNYL | 200 mcg | + + + | rocuronium | 60 mg | + + + | dexamethasone | 10 mg | + + + | glycopyrrolate | 0.4 mg | + + + | neostigmine | 2.5 mg | + + + | vancomycin (VANCOCIN) IV | 1,000 mg | | (ADD-vantage) 1,000 mg | | + + + | PHENYLephrine INF (50mg/250mL) | 140.4 mcg | + + + | PHENYLEPHrine | 300 mcg | + + + | metoprolol | 5 mg | + + + | ondansetron | 4 mg | + + + | albuterol inhaler | 8 puff | + + + | lactated ringers IV | 1,000 mL | + + + | LR | 600 mL | + + + + + | Name | + + | O2 FR Avance (Total Liters) | + + | Air FR Avance (l/min) | + + | Insp Sevo | + + | Et Sevo | + + | Insp N2O % | + + + + | No blood administrations on file. | + + +--------+ + + + | Type | Details | Placement | Removal | +--------+ + + + | RETIRE | 10/18/07; 0514; 12/09/16 | 10/18/07 0514 by | 12/09/16 1622 by | | D - | (Automatic cleanup per RA | Carlos Eduardo Wakefield RN | Discontinued After | | Gastri | 3006--contact admin for | | Discharge | | c/Feed | questions.); 1622 (Automatic | | | | ing | cleanup per RA 3006--contact | | | | Tube | admin for questions.); No; Oral; | | | | | No; Auscultation; OG | | | +--------+ + + + | RETIRE | 10/24/07; 1330; 12/09/16 | 10/24/07 1330 by | 12/09/16 1622 by | | D - | (Automatic cleanup per RA | Aiyana Serrano RN | Discontinued After | | Gastri | 3006--contact admin for | | Discharge | | c/Feed | questions.); 1622 (Automatic | | | | ing | cleanup per RA 3006--contact | | | | Tube | admin for questions.); No; Right | | | | | Nare; Yes; Gastric Contents, | | | | | X-Ray, Auscultation; Dobhoff; | | | | | Nare; 1 | | | +--------+ + + + | Wound/ | 03/04/08; 2199; L neck abcess; | 03/04/080 by | 12/09/16 1622 by | | Incisi | Left:; neck; abscess; 12/09/16 | Silvia | Discontinued After | | on/Halima | (Automatic cleanup per RA | ALEKSANDAR Liu | Discharge | | in | 3006--contact admin for | | | | | questions.); 1622 (Automatic | | | | | cleanup per RA 3006--contact | | | | | admin for questions.) | | | +--------+ + + + | RETIRE | 04/12/08; R frontal; Right:; | 04/12/08 0000 by | 12/09/16 1622 by | | D - | frontal region; surgical wound; | Saskia Nguyen RN | Discontinued After | | Wound | 12/09/16 (Automatic cleanup per | | Discharge | | | RA 3006--contact admin for | | | | | questions.); 1622 (Automatic | | | | | cleanup per RA 3006--contact | | | | | admin for questions.) | | | +--------+ + + + | RETIRE | 04/12/08; R abdomen; 12/09/16 | 04/12/08 0000 by | 12/09/16 1622 by | | D - | (Automatic cleanup per RA | Saskia Nguyen RN | Discontinued After | | Incisi | 3006--contact admin for | | Discharge | | on | questions.); 1622 (Automatic | | | | | cleanup per RA 3006--contact | | | | | admin for questions.) | | | +--------+ + + + | RETIRE | 06/07/14; 12/09/16 (Automatic | 06/07/14 0000 by | 12/09/16 1622 by | | D - | cleanup per RA 3006--contact | July Henry RN | Discontinued After | | Drains | admin for questions.); 1622 | | Discharge | | | (Automatic cleanup per RA | | | | (wound | 3006--contact admin for | | | | s/surg | questions.); No; 7mm; LAZARA; Right; | | | | ical) | Neck | | | +--------+ + + + | RETIRE | 06/07/14; No; Right:; neck; | 06/07/14 0000 by | 12/09/16 1622 by | | D - | 12/09/16 (Automatic cleanup per | July Henry RN | Discontinued After | | Incisi | RA 3006--contact admin for | | Discharge | | on | questions.); 1622 (Automatic | | | | | cleanup per RA 3006--contact | | | | | admin for questions.) | | | +--------+ + + + | Wound | 10/23/15; Right; head; 12/10/16 | 10/23/15 0000 by | 12/10/16 0659 by | | | (Automatic cleanup per RA | Anika Pollack RN | Discontinued After | | | 3006--contact admin for | | Discharge | | | questions.); 0659 (Automatic | | | | | cleanup per RA 3006--contact | | | | | admin for questions.) | | | +--------+ + + + | Periph | 10/23/15; 0715; jw; Left; Dorsal; | 10/23/15 0715 by | 10/23/15 0801 by | | eral | Hand; 20 g; None; Positive; | Remington Young, | Hemanth Edward CRNA | | IV | 10/23/15; 0801; Infiltrated | RN | | +--------+ + + + | Periph | 10/23/15; 0745; Barry Chavez | 10/23/15 0745 by | 10/25/15 1220 by | | eral | MD; Right; Lateral; Wrist; 18 g; | Hemanth Edward CRNA | Ba Madrigal RN | | IV | None; No; Positive; 10/25/15; | | | | | 1220 | | | +--------+ + + + | Urethr | 10/23/15; 814; EFRAÍN Benavides; 16 | 10/23/15 0815 by | 10/23/15 1000 by | | al | Fr.; 10 mL; 10/23/15 (Dc'd in OR | Tommy Bautista RN | Anika Pollack RN | | Cathet | [facility] 1000 | | | | er | | | | +--------+ + + + | Periph | 10/23/15; 829; Hemanth Edward [employer]; | 10/23/15829 by | 10/24/15929 by | | eral | Left; Lateral; Wrist; 18 g; None; | Hemanth Edward CRNA | Saskia Fraga RN | | IV | No; Positive; 10/24/15; 929 | | | +--------+ + + + [...] encounter OR Notes Anesthesia Postprocedure Evaluation - Hemanth Edward, [employer] - 10/23/2015 10:48 AM PDTFormatti jesus of this note might be different from the original. Cielo Bell [id number] Allergies Allergen Reactions Frierson Tar Hives Betadine [Povidone-Iodine (With Soap)] Unknown Cipro [Ciprofloxacin] Nausea and Vomiting Codeine Hcl Nausea and Vomiting Sulfa (Sulfonamide Antibiotics) Erythema Past Surgical History Procedure Laterality Date Partial thyroidectomy Right Hysterectomy Cholecystecomy Bladder suspension 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 Rotary Cutter Feeder shunt Tympanoplasty Right 1987 Lumpectomy of left breast 1978 Coronary stent placement 12/28/2014 status post stent placement in the mid LAD Temp: 36.6 C (97.9 F) Pulse: 77 Resp: 24 BP: 143/64 mmHg SpO2: 96 % Evaluation Patient personally seen and evaluated for recovery from anesthesia care, ROS including card , resp, Neuro, and GI w/o evidence of adverse effects and VS including temperature and hydra tion status are normal Complications Other: No anesthetic issues identified. Denies dyspnea at this time. Sitting up in bed with no c/o pain. nesthesia Preproc edure Evaluation - Hemanth Edward, [employer] - 10/23/2015 7:14 AM PDTFormatting of this note migh t be different from the original. 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 CLOPIDOGREL 75 MG TABLET Take 75 mg by mouth once daily. METOPROLOL SUCCINATE ER 25 MG TABLET,EXTENDED RELEASE 24 HR Take 25 mg by mouth once daily. MUPIROCIN 2 % TOPICAL OINTMENT Place a small amount of ointment on a Q-tip and put it insid e the opening of each nostril once in the am and once in the pm for 5 days. PRAVASTATIN 20 MG TABLET Take 20 mg by mouth once daily at bedtime. Lab Results Component Value Date RATE 81 10/03/2015 ATRIALRATE 190 10/03/2015 AL 176 10/03/2015 QRS 80 10/03/2015 QT 388 10/03/2015 QTC 462 04/12/2008 PAXIS 68 10/03/2015 RAXIS -62 10/03/2015 TAXIS 114 10/03/2015 EKGDX 04/12/2008 Normal sinus rhythm Normal ECG "I have personally interpreted this report, either alone or with a trainee." Confirmed by KAREN ROMERO ([id number]) on 12-Apr-2008 15:40:13 Preoperative Adult Anesthesia Plan Last edited 10/03/15 9511 by Mable Lee MD ROS Pertinent HPI: Pulmonary: no cough no shortness of breath Pt. Has no asthma COPD severe (O2) No dx of sleep apnea Cardiovascular: Functional Capacity: Moderate - cyanosis, PND, palpitations, chest pressure and syncope CAD no CHF hypertension well controlled no pacemaker GI/Hepatic: no GI Bleed GERD Control: Well controlled No liver disease no hepatitis no OTHER GI : no renal failure no dialysis Endo: no Diabetes: Neurological: Sign/Sx (s/p SAH) no seizures no HX CORTICOSTEROID no psychiatric problem no dementia no pain Current Pain Level: Current pain level: 0 MS: no arthritis Heme/Onc: Pt. has: no active bleeding no Bleeding diathesis / thrombotic bleeding Previous Transfusions: no transfusion hx Hx: no other heme, Malignancy: no cancer, Location: Metastasis: Skin: No open wounds or sores Hx of MRSA/VRE/Active skin infection Physical Exam General: Patients general appearance: Alert, No distress, Cooperative and Age appropriate Head & Neck/Airway: Normocephalic; atraumatic; PERRL; EOMI; nl appearing ears and nose. Neck ROM: full TM Distance:Normal Dentition: dentures-upper and missing teeth Cormier: No Mallampati: III Mouth Opening: > = 3 cm C-Spine: normal Neck Anatomy: Normal Jaw Protrusion: Normal, lower incisors can protrude past upper incisors Lung Exam: No respiratory distress. Normal breathing pattern. breath sounds normal Cardiac: No murmurs, gallops or rubs. Rhythm: regular Rate: normal Abdominal: General Findings: no abdominal tenderness and Nondistended Bowel Sounds: bowel sounds are normal Musculoskeletal: Findings: tone normal Neuro/Psych: No focal neuro deficits; Alert and appropriate; nl affect. alert Findings: Cranial nerves 2-12 intact, Motor 5/5 strength globally with normal tone, Soft & sharp sensation normal, No tremor, Alert, oriented to person, place, time and Normal affect Integument: No open rashes or lesions noted. - lesion, rash and open wounds Color: pink Texture: Skin texture - normal Turgor: turgor normal Implants: None, 1746 Anesthesia Plan Comments ASA ASA 3 NPO Status NPO Status: NPO by protocol Monitors/Lines to be used Standard Anesthetic Consideration Decadron and PONV prophylaxis Induction Anesthetic Technique General; Post-Op Pain Plan IV analgesics; Blood Products T and S; Interpretive Services Informed Consent PARQ discussed with: patient, Procedures, Alternatives, Risks, and Questions discussed and Risk/benefit of anesthesia plan and blood product discussed Code status in OR Patients Code Status in OR: FULL 10/22 7:32 AM documented in this encounter Miscellaneous Notes Ane airway standard - Hemanth Edward CRNA - 10/23/2015 7:55 AM PDTProcedure Reason for Intubation: For surgical procedure, Location Performed: OR , Patient was preoxyg enated Mask Ventilation Grade 1 - Ventilated by mask Intubation Blade type: Nidhi , Blade size: 3, Atraumatic laryngoscopy: Atraumatic Laryngoscopy, In tubation adjuncts: N/A , Laryngoscopic view: Grade I, Fiberoptics used: N/A , Number of Atte mpts: 1, Positive for EtCO2: Yes, Breath sounds: Bilateral and equal ETT Ett Adult: Single-lumen cuffed ETT Size: 7 ETT secured with: adhesive tape Depth at Lip: 22 Cm LMA Narrative Attending physically present Attending: KAY CHAVEZ Performed by HEMANTH HOFF [facility] PreOp Note - Hemanth Edward CRNA - 10/23/2015 7:15 AM PDT ROS Pertinent HPI: Cielo Bell is a 65 y.o. female here for crainioplasty. 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 Significant PMH for CAD -- pt had an NSTEMI 12/28/15 and had coronary stents placed (bare metal) and she's on medical m gmt with asa, statin, beta mukul and Plavix. She's been advised that she was to stop Plavi x about 2 weeks before surgery. Because of her CAD, she remained on low dose aspirin, beta b locker and her statin. COPD -- fairly advanced, though pt not using any inhalers. She uses s upplemental oxygen at night.Prior hx of MRSA (post op infection) post craniotomy. No current symptoms. Ongoing tobacco dependence. No recent cold, flu or fever. No CP or palpitations. Chronic productive cough with no change in consistency prior to surgery. Pulmonary: no cough no shortness of breath Pt. Has no asthma COPD severe (O2) No dx of sleep apnea Risks factors for sleep apnea: Pt. being treated for high blood pressure Age>50 Pt at low risk of MELISSA Cardiovascular: Echo 12/2014: Normal LV size and mild apical hypokinesis with overall preserved systolic function with LV EF 54%.2. Mild aortic insufficiency without significant stenosis.3. Normal pulmonary press ures.4. Grade 1 LV diastolic dysfunction. Functional Capacity: Moderate - cyanosis, PND, palpitations, chest pressure and syncope CAD no CHF hypertension well co ntrolled no pacemaker GI/Hepatic: no GI Bleed GERD Control: Well controlled No liver disease no hepatitis no O THER GI : no renal failure no dialysis Endo: no Diabetes: Neurological: Sign/Sx (s/p SAH) no seizures no HX CORTICOSTEROID no psychiatric problem no dementia no pain Current Pain Level: Current pain level: 0 MS: no arthritis Heme/Onc: Pt. has: no active bleeding no Bleeding diathesis / thrombotic bleeding Previous Transfusions: no transfusion hx Hx: no other heme, Malignancy: no cancer, Location: Metast asis: Skin: No open wounds or sores Hx of MRSA/VRE/Active skin infection Physical Exam General: Patients general appearance: Alert, No distress, Cooperative and Age appropriate Head & Neck/Airway: Normocephalic; atraumatic; PERRL; EOMI; nl appearing ears and nose. Nec k ROM: full TM Distance:Normal Dentition: dentures-upper and missing teeth Cormier: No Mallampati: III Mouth Opening: > = 3 cm C-Spine: normal Neck Anatomy: Normal Jaw Protrusion: Normal, lower i ncisors can protrude past upper incisors Lung Exam: No respiratory distress. Normal breathing pattern. breath sounds normal Cardiac: No murmurs, gallops or rubs. Rhythm: regular Rate: normal Abdominal: General Findings: no abdominal tenderness and Nondistended Bowel Sounds: bowel sounds are normal Musculoskeletal: Findings: tone normal Neuro/Psych: No focal neuro deficits; Alert and appropriate; nl affect. alert Findings: Cr anial nerves 2-12 intact, Motor 5/5 strength globally with normal tone, Soft & sharp sensati on normal, No tremor, Alert, oriented to person, place, time and Normal affect Integument: No open rashes or lesions noted. - lesion, rash and open wounds Color: pink Texture: Skin texture - normal Turgor: turgor normal Implants: None, MC/ANE PreOp Note - Mable Lee MD - 10/03/2015 2:28 PM PDT ROS Pertinent HPI: Pulmonary: no cough no shortness of breath Pt. Has no asthma COPD severe (O2) No dx of sleep apnea Cardiovascular: Functional Capacity: Moderate - cyanosis, PND, palpitations, chest pressure and syncope CAD no CHF hypertension well co ntrolled no pacemaker GI/Hepatic: no GI Bleed GERD Control: Well controlled No liver disease no hepatitis no O THER GI : no renal failure no dialysis Endo: no Diabetes: Neurological: Sign/Sx (s/p SAH) no seizures no HX CORTICOSTEROID no psychiatric problem no dementia no pain Current Pain Level: Current pain level: 0 MS: no arthritis Heme/Onc: Pt. has: no active bleeding no Bleeding diathesis / thrombotic bleeding Previous Transfusions: no transfusion hx Hx: no other heme, Malignancy: no cancer, Location: Metast asis: Skin: No open wounds or sores Hx of MRSA/VRE/Active skin infection Physical Exam General: Patients general appearance: Alert, No distress, Cooperative and Age appropriate Head & Neck/Airway: Normocephalic; atraumatic; PERRL; EOMI; nl appearing ears and nose. Nec k ROM: full TM Distance:Normal Dentition: dentures-upper and missing teeth Cormier: No Mallampati: III Mouth Opening: > = 3 cm C-Spine: normal Neck Anatomy: Normal Jaw Protrusion: Normal, lower i ncisors can protrude past upper incisors Lung Exam: No respiratory distress. Normal breathing pattern. breath sounds normal Cardiac: No murmurs, gallops or rubs. Rhythm: regular Rate: normal Abdominal: General Findings: no abdominal tenderness and Nondistended Bowel Sounds: bowel sounds are normal Musculoskeletal: Findings: tone normal Neuro/Psych: No focal neuro deficits; Alert and appropriate; nl affect. alert Findings: Cr anial nerves 2-12 intact, Motor 5/5 strength globally with normal tone, Soft & sharp sensati on normal, No tremor, Alert, oriented to person, place, time and Normal affect Integument: No open rashes or lesions noted. - lesion, rash and open wounds Color: pink Texture: Skin texture - normal Turgor: turgor normal Implants: None, documented in this e ncounter Plan of Treatment Not on filedocumented as of this encounter Visit Diagnoses Not on filedocumented in this encounter Administered Medications + +--------+ +---------+------+------+ | Medication Order | MAR | Action | Dose | Rate | Site | | | Action | Date | | | | + +--------+ +---------+------+------+ | albuterol (PROVENTIL, VENTOLIN) | Given | 10/23/19 | 8 puffs | | | | 90 mcg/actuation inhaler | | 16 10:00 | | | | | INTRAPROCEDURE PRN, Starting Clarisa | | AM PDT | | | | | 10/23/15 at 1000, Until Clarisa 10/23/15 | | | | | | | at 1042, dyspnea/SOB | | | | | | + +--------+ +---------+------+------+ +---+---+ | | | +---+---+ + +-------+ +-------+---+---+ | dexamethasone (DECADRON) | Given | 10/23/19 | 10 mg | | | | injection INTRAPROCEDURE PRN, | | 16 7:59 | | | | | Starting Clarisa 10/23/15 at 0759, | | AM PDT | | | | | Until Clarisa 10/23/15 at 1015 | | | | | | + +-------+ +-------+---+---+ +---+---+ | | | +---+---+ + +-------+ +--------+---+---+ | fentaNYL citrate (PF) | Given | 10/23/19 | 50 mcg | | | | (SUBLIMAZE) injection | | 16 8:39 | | | | | INTRAPROCEDURE PRN, Starting Clarisa | | AM PDT | | | | | 10/23/15 at 0752, Until Clarisa 10/23/15 | | | | | | | at 1015 | | | | | | + +-------+ +--------+---+---+ +-------+ +---------+---+---+ | Given | 10/23/19 | 150 mcg | | | | | 16 7:52 | | | | | | AM PDT | | | | +-------+ +---------+---+---+ +---+---+ | | | +---+---+ + +-------+ +--------+---+---+ | glycopyrrolate (AUGUSTO) | Given | 10/23/19 | 0.4 mg | | | | injection INTRAPROCEDURE PRN, | | 16 10:05 | | | | | Starting Clarisa 10/23/15 at 1005, | | AM PDT | | | | | Until Clarisa 10/23/15 at 1027 | | | | | | + +-------+ +--------+---+---+ +---+---+ | | | +---+---+ + + + +---+---+---+ | lactated ringers IV 500 mL, | given by | 10/23/19 | | | | | intravenous, POSTPROCEDURE PRN, | | 16 8:55 | | | | | dose, Starting Clarisa 10/23/15 at | anesthes | AM PDT | | | | | 0847, Until Clarisa 10/23/15 at 0944, | iology | | | | | | nausea/vomiting due to | | | | | | | dehydration | | | | | | + + + +---+---+---+ +---------+ +---+---+---+ | New Bag | 10/23/19 | | | | | | 16 7:38 | | | | | | AM PDT | | | | +---------+ +---+---+---+ +---+---+ | | | +---+---+ + + + +---+---+---+ | lactated ringers IV | given by | 10/23/19 | | | | | INTRAPROCEDURE CONTINUOUS PRN, | | 16 10:15 | | | | | Starting Clarisa 10/23/15 at 0750, | anesthes | AM PDT | | | | | Until Clarisa 10/23/15 at 1015 | iology | | | | | + + + +---+---+---+ + + +---+---+---+ | given by anesthesiology | 10/23/19 | | | | | | 16 9:44 | | | | | | AM PDT | | | | + + +---+---+---+ | given by anesthesiology | 10/23/19 | | | | | | 16 8:55 | | | | | | AM PDT | | | | + + +---+---+---+ +---+---+ | | | +---+---+ + +-------+ +--------+---+---+ | lidocaine PF (XYLOCAINE MPF) 20 | Given | 10/23/19 | 100 mg | | | | mg/mL (2 %) injection | | 16 7:49 | | | | | INTRAPROCEDURE PRN, Starting Clarisa | | AM PDT | | | | | 10/23/15 at 0749, Until Clarisa 10/23/15 | | | | | | | at 1015 | | | | | | + +-------+ +--------+---+---+ +---+---+ | | | +---+---+ + +-------+ +------+---+---+ | metoprolol (LOPRESSOR) | Given | 10/23/19 | 5 mg | | | | injection intravenous, | | 16 8:54 | | | | | INTRAPROCEDURE PRN, Starting Clarisa | | AM PDT | | | | | 10/23/15 at 0854, Until Clarisa 10/23/15 | | | | | | | at 1015 | | | | | | + +-------+ +------+---+---+ +---+---+ | | | +---+---+ + +-------+ +--------+---+---+ | neostigmine (PROSTIGMIN) | Given | 10/23/19 | 2.5 mg | | | | injection intravenous, | | 16 10:06 | | | | | INTRAPROCEDURE PRN, Starting Clarisa | | AM PDT | | | | | 10/23/15 at 1006, Until Clarisa 10/23/15 | | | | | | | at 1027 | | | | | | + +-------+ +--------+---+---+ +---+---+ | | | +---+---+ + +-------+ +------+---+---+ | ondansetron (ZOFRAN) injection | Given | 10/23/19 | 4 mg | | | | INTRAPROCEDURE PRN, Starting Clarisa | | 16 9:49 | | | | | 10/23/15 at 0949, Until Clarisa 10/23/15 | | AM PDT | | | | | at 1015 | | | | | | + +-------+ +------+---+---+ +---+---+ | | | +---+---+ + +-------+ +---------+---+---+ | PHENYLEPHrine 100 mcg/mL IV | Given | 10/23/19 | 100 mcg | | | | syringe INTRAPROCEDURE PRN, | | 16 8:12 | | | | | Starting Clarisa 10/23/15 at 0812, | | AM PDT | | | | | Until Clarisa 10/23/15 at 1015, blood | | | | | | | pressure | | | | | | + +-------+ +---------+---+---+ +-------+ +---------+---+---+ | Given | 10/23/19 | 200 mcg | | | | | 16 7:53 | | | | | | AM PDT | | | | +-------+ +---------+---+---+ +---+---+ | | | +---+---+ + +---------+ + +-------+---+ | PHENYLEPHrine 50 mg/250 mL (0.2 | New Bag | 10/23/19 | 0.05 | 0.78 | | | mg/mL) IV infusion (ADC) | | 16 8:04 | mcg/kg/m | mL/hr | | | intravenous, INTRAPROCEDURE | | AM PDT | in | | | | CONTINUOUS PRN, Starting Clarisa | | | | | | | 10/23/15 at 0804, Until Clarisa 10/23/15 | | | | | | | at 1015 | | | | | | + +---------+ + +-------+---+ +---+---+ | | | +---+---+ + +-------+ +--------+---+---+ | propofol INTRAPROCEDURE PRN, | Given | 10/23/19 | 110 mg | | | | Starting Clarisa 10/23/15 at 0753, | | 16 7:53 | | | | | Until Clarisa 10/23/15 at 1015 | | AM PDT | | | | + +-------+ +--------+---+---+ +---+---+ | | | +---+---+ + +-------+ +-------+---+---+ | rocuronium (ZEMURON) injection | Given | 10/23/19 | 60 mg | | | | INTRAPROCEDURE PRN, Starting Clarisa | | 16 7:53 | | | | | 10/23/15 at 0753, Until Clarisa 10/23/15 | | AM PDT | | | | | at 1015, Neuromuscular block | | | | | | + +-------+ +-------+---+---+ +---+---+ | | | +---+---+ + +---------+ + +---+---+ | vancomycin (VANCOCIN) IV | New Bag | 10/23/19 | 1,000 mg | | | | (ADD-vantage) 1,000 mg 1,000 mg, | | 16 7:45 | | | | | intravenous, PREPROCEDURE ONCE, | | AM PDT | | | | | 1 dose, Starting Clarisa 10/23/15 at | | | | | | | 0646, Until Clarisa 10/23/15 at 0745 | | | | | | + +---------+ + +---+---+ +---+---+ | | | +---+---+ documented in this encounter
--- OUTSIDE RECORDS SUMMARY | ~2019-10-22 | XMS | Encounter Summary ---
Demographics + + + | Address | [address] | | | [place] [address] | + + + | Home Phone | | + + + | Preferred Language | Unknown | + + + | Marital Status | | + + + | Religion Affiliation | MET | + + + [...] Team Providers + +------+ + | Care Storage Architect Name | Role | Phone | [...]
--- OUTSIDE RECORDS SUMMARY | ~2019-10-22 | XMS | Encounter Summary ---
Demographics + + + | Address | [address] | | | [place] [address] | + + + | Home Phone | | + + + | Preferred Language | Unknown | + + + | Marital Status | | + + + | Latter Day Affiliation | MET | + + + [...] Team Providers + +------+ + | Care Lawnmower Mechanic Name | Role | Phone | + +------+ + | Anil Baker DO | PCP | | + +------+ + Encounter Details +--------+ + + + + | Date | Type | Department | Care Team | Description | +--------+ + + + + | 05/22/ | Abstract | Otolaryngology | Beny Cruz, | | | 2014 | | Head and Neck | MD [address] [facility] | | | | | Surgery Services at | [facility] | | | | | [address] | [place], [place] | | | | | [address] | [address] | | | | | Physician's | [phone] | | | | | [place], 2nd floor | | | | | | [place], [place] | | | | | | [address] | | | | | | [phone] | | | +--------+ + + + [...]
--- OUTSIDE RECORDS SUMMARY | ~2019-10-22 | XMS | Encounter Summary ---
Demographics + + + | Address | [address] | | | [place] [address] | + + + | Home Phone | | + + + | Preferred Language | Unknown | + + + | Marital Status | | + + + | Rastafarian Affiliation | MET | + + + [...] Team Providers + +------+ + | Care Benefits Director Name | Role | Phone | + +------+ + | Mary Vazquez PA-C | PCP | | + +------+ + Reason for Visit + + + | Reason | Comments | + + + | Postoperative visit | | + + + | Wound Check | | + + + Other (Routine) +--------+--------+ + + + + | Status | Reason | Specialty | Diagnoses / | Referred By | Referred To | | | | | Procedures | Contact | Contact | +--------+--------+ + + + + | Closed | | Neurological | Diagnoses | Kari Salinas | Cecile, | | | | Surgery | Other | MD Dora | MD Paramjit | | | | | acquired | [address] | [address] | | | | | deformity of | [address] | [address] | | | | | head | [address] | [place], [place] | | | | | Infection | [place], [place] | [address] | | | | | and | [address] | Phone: | | | | | inflammatory | Phone: | [phone] | | | | | reaction | [phone] | Fax: | | | | | due to other | Fax: | [phone] | | | | | internal | [phone] | | | | | | prosthetic | | | | | | | devices, | | | | | | | implants and | | | | | | | grafts, | | | | | | | subsequent | | | | | | | encounter | | | | | | | Procedures | | | | | | | POSTOP VISIT | | | | | | | MN REPLACE | | | | | | | SKULL | | | | | | | PLATE/FLAP | | | | | | | MN REPAIR | | | | | | | SKULL | | | | | | | DEFECT,UP TO | | | | | | | 5CM MN | | | | | | | REPAIR SKULL | | | | | | | DEFECT,>5CM | | | +--------+--------+ + + + + Encounter Details +--------+---------+ + + + | Date | Type | Department | Care Team | Description | +--------+---------+ + + + | 06/02/ | Office | Neurosurgery at | | Acquired skull | | 2019 | Visit | [facility] [address] | | defect (Primary Dx) | | | | [facility], | | | | | | [facility] | | | | | | floor [place], [place] | | | | | | [address] | | | | | | [phone] | | | +--------+---------+ + + + [...] + + + | Blood Pressure | 112/64 | 06/02/2018 12:41 PM | | | | | PDT | | + + + + + | Pulse | - | - | | + + + + + | Temperature | 36.7 C (98 F) | 06/02/2018 12:41 PM | | | | | PDT [...] + + + + | Weight | 49.9 kg (110 lb) | 06/02/2018 12:41 PM | | | | | PDT | | + + + + + | Height | - | - | | + + + + + | Body Mass Index | 22.22 | 05/08/2018 7:20 AM | | | | | PDT [...] documented as of this encounter Progress Notes Almita Acosta AGACNP - 06/02/2018 2:00 PM PDTFormatting of this note might be d ifferent from the original. NEUROSURGERY FOLLOW UP CLINIC VISIT [facility] Attending: Paramjit Huber MD Date of appointment: 06/02/2018 Procedures: 05/09/18: Right frontotemporal synthetic custom cranioplasty, greater than 5 cm 05/14/18: Suture repair of scalp defect at bedside (by ENT) HPI / INTERVAL HISTORY: Cielo Bell is a 68 y.o. female with recent R synthes cranioplasty due to bone flap resorption. Her post-operative course was complicated by wound/flap dehiscence, and so the incision was over-sewn at the bedside by ENT. She here in clinic for her post-op follow- up visit for wound check and suture removal. Since discharge, she reports that her incision has been healing well, that she has had no i ssues with pain, and she is happy with how well her hair has been growing in on the clipped part in front. MEDS: Current Outpatient Prescriptions on File Prior to Visit Medication Sig Dispense Refill acetaminophen 325 mg oral tablet Take 1-2 tablets by mouth every four hours as needed. Indications: Pain ascorbic acid (vitamin C) 500 mg oral tablet Take 1 tablet by mouth two times daily. 62 tablet 0 aspirin EC 81 mg oral tablet,delayed release [...] Take 25 mg by mouth once daily. zinc sulfate 110 mg total salt (25 mg elemental) oral tablet Take 1 tablet by mouth onc e daily. 30 tablet 0 No current facility-administered medications on file prior to visit. PHYSICAL EXAM: There were no vitals taken for this visit. Alert and oriented x4, appropriately conversational PERRL, EOMI, gaze conjugate, VFI Face symmetric, TML Face sensation intact V1-V3 bilat Strong, symmetric shoulder shrug No pronator drift or FTN dysmetria Full strength and SILT throughout BUE/BLE Incision C/D/I; no erythema, swelling, or drainage noted Nylon sutures in place ASSESSMENT AND PLAN: Cielo Bell is a 68 y.o. female s/p synthetic cranioplasty and subsequent over- sewing of incision for wound dehiscence who presents for follow-up. Her wound appears to be healing very well, with a small scab over the portion that was starting to dehisce previousl y. Her sutures are due to be removed today. - Remove nylon sutures in office today - RTC prn Pt seen, examined, and discussed w/ Dr Huber, who agrees w/ the above assessment and plan. 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
--- OUTSIDE RECORDS SUMMARY | ~2019-10-22 | XMS | Encounter Summary ---
Demographics + + + | Address | [address] | | | [place] [address] | + + + | Home Phone | | + + + | Preferred Language | Unknown | + + + | Marital Status | | + + + | Hoahaoism Affiliation | MET | + + + | Race | White | + + + | Ethnic Group | Not or | + + + Author + + + | Author | [facility] | + + + | Organization | [facility] | + + + | Address | [...] Team Providers + +------+ + | Care Home Health Care Social Worker Name | Role | Phone | [...] Description | +--------+---------+ + + + | 08/15/ | Office | Otolaryngology | Ata White MD | Skull defect | | 2019 | Visit | Head and Neck | [address] | (Primary Dx); | | | | Surgery Services at | [facility], | History of | | | | [facility] [address] | [place] [address] | cranioplasty | | | | [facility] | [phone] | | | | | [facility], | | | | | | [address] | | | | | | [place], [place] | | | | | | [address] | | | | | | [phone] | | | +--------+---------+ + + + [...] + + + | Blood Pressure | 73/54 | 08/15/2018 11:50 AM | | | | | PDT | | + + + + + | Pulse | 80 | 08/15/2018 11:50 AM | | | | | PDT [...] + + + + | Weight | 48.5 kg (107 lb) | 08/15/2018 11:50 AM | | | | | PDT | | + + + + + | Height | - | - | | + + + + + | Body Mass Index | 21.61 | 08/03/2018 9:56 AM | | | [...] encounter Progress Notes Ata White MD - 08/15/2018 2:26 PM PDTClinic Date:08/15/2018 I saw Cielo today. She is discharged from the hospital. She had a latissimus dorsi myocu taneous free tissue transfer split-thickness skin graft, reconstruction of the scalp with va scular anastomosis in the right neck. The facial artery and facial vein were used. She has been doing quite well off her heparin. She had a little bit of oozing from the wound site, but no evidence of bleeding, etc. She comes in today for routine postoperative care. Her head is healing well. She has complete take of her full-thickness skin graft. The fla p is alive and viable. There is no evidence of hematoma or infection. She is otherwise looking well. I suggested I see her again in 1 month's time. If she is h aving any issues, she will call me. Otherwise, she just needs to continue with her current course of treatment. I will see her again in 1 month. MD CHANDRIKA Hansen/NGUYEN /[id number] signed by Ata White MD at 08/15/2018 4:36 PM LUZWaAta michael MD - 08/15/2018 12:00 PM PDTDictation #1 [id number] signed by Ata White MD at 08/15/2018 2:02 PM PDTdocumented in this en counter Plan of Treatment Not on filedocumented as of this encounter Visit Diagnoses + + | Diagnosis | + + | Skull defect - Primary Unspecified acquired deformity of head | + + | History of cranioplasty | + + documented in this encounter"
--- OUTSIDE RECORDS SUMMARY | ~2019-10-22 | XMS | Encounter Summary ---
Demographics + + + | Address | [address] | | | [place] [address] | + + + | Home Phone | | + + + | Preferred Language | Unknown | + + + | Marital Status | | + + + | Anglican Affiliation | MET | + + + [...] Team Providers + +------+ + | Care Stamp Maker Name | Role | Phone | + [...] [place] | | | | | [facility] | [address] | | | | | Hospital Admitting | [facility] [place] | | | | | Desk Located on the | [address] | | | | | 9th floor | [phone] | | | | | [facility] [place] | | | | | | [address] | Bill Sanchez MD | | | | | | [address] | | | | | | [place], | | | | | | [place] [address] | | | | | | [phone] | | | | | | | [...] be different from the original. Cielo Bell [id number] Vitals Value Taken Time BP 162/64 07/11/2018 [...] - 07/11/2018 10:38 AM PDTSheryl Marsha Bell [id number] NPO: 0001 Last Vitals Temp: 36.2 C [...] STEMI s/p BMS (denies symptoms since last PA ~2 years prior, took metoprolol t his [...] mid-30 % -- Lexiscan Cardiolite stress test (07/27/16-[facility]): Severe LV enlargement, marked scarring (co mprising approximately 60% of the entire LV) of the entire anterior, anteroseptal, mid and d istal inferior, inferoseptal, inferolateral and anterolateral segments with no evidence of i schemia, EF 16% -- Echo (12/28/14-[facility]): EF 54%, apical hypokinesis, grade 1 diastolic dysfunction, mild AI -- Cardiac Cath / PCI (12/28/14 - [facility]): LVEDP 35, LM-normal, mid LAD- occluded > [...] D 12/2015) medically managed cardiac stents past PA Last PA: > 1 year valvular problems /murmurs AR [...]
--- OUTSIDE RECORDS SUMMARY | ~2019-10-22 | XMS | Encounter Summary ---
Demographics + + + | Address | [address] | | | [place] [address] | + + + | Home Phone [...] | | + + +---------+ + | Erci Leung | ECON | Unknown | | + + +---------+ + Care Team Providers + +------+ + | Care Assistant Clinical Director Name | Role | Phone | [...] Description | +--------+---------+ + + + | 07/11/ | Surgery | 6A Intra Op [id number] | Adolfo Urbina MD | RIGHT CRANIOPLASTY | | 2019 | | [facility] | [address] | EXPLANT, COMPLEX | | | | Rd [facility] | [place], [place] | WOUND CLOSURE | | | | Hospital Admitting | [address] | | | | | Desk Located on the | [phone] | | | | | 9th floor | | | | | | [place], [place] | | | | | | [address] | | | +--------+---------+ + + + [...] + + + | Blood Pressure | 99/64 | 07/11/2018 9:47 AM | | | | | PDT | | + + + + + | Pulse | 81 | 07/11/2018 9:47 AM | | | | | PDT | | + + + + + | Temperature | 36.2 C (97.2 F) | 07/11/2018 9:47 AM | | | | | PDT | | + + + + + | Respiratory Rate | 15 | 07/11/2018 9:47 AM | | | | | PDT | | + + + + + | Oxygen Saturation | 91% | 07/11/2018 9:47 AM | | | | | PDT [...] Urbina MD PCP: Mary Vazquez PA-C Service: [facility] Neurosurgery Diagnoses Principal Final Diagnosis: Wound dehiscence. [...] V1-V3 Sensory intact Symmetric shoulder shrug BUE/BLE 06/25 equal b/l No Pronator Drift SILT Incision [...] AM Discharging Attending: MD Marni Beck PA-C [facility] [address] [address] [place] [address] documented in t his encounter Medications at [...] Vazquez PA-C Admission Date: 07/10/2018 GLORIA BELL, [id number] Hospital Day #3 PROCEDURES: Dr. White (ENT) [...] ANGIE FRENCH PA-C Otolaryngology-Head and Neck Surgery [facility] Pager [phone] arni Manning PA-C - 07/12/2018 1:11 PM PDTFormatting of this note might be different from the reba l. INPATIENT PROGRESS NOTE Hospital Day:2 Author; [...] V1-V3 Sensory intact Symmetric shoulder shrug BUE/BLE 06/25 equal b/l No Pronator Drift No owwazn-yt-rljz dysmetria nor ataxia SILT Incision c/d/i. Nylons [...] defect at bedside (suture) She presents to [facility] with wound dehiscence and exposed hardware now [...] 24-28hr. Marni Manning PA-C Neurological Surgery Pg [phone] Steven Piña PA-C - 07/12/2018 8:07 AM PDTFormatting of this note might be different from the reba naik. DOS: 07/12/2018 Head and Neck Surgery Inpatient Daily Progress Note: Primary Care Provider: Mary Vazquez PA-C Admission Date: 07/10/2018 GLORIA BELL, [id number] Hospital Day #2 PROCEDURES: Dr. White (ENT) [...] Labs 07/10/181746 APTT 29.8 CBG's Recent Labs 07/10/187 07/11/18 [...] ANGIE FRENCH PA-C Otolaryngology-Head and Neck Surgery [facility] Pager [phone] ossVickie MD, MPH - 07/11/2018 3:52 PM [...] Please contact the Neurosurgery resident on-call pager [phone] with questions or concerns. Vickie Estrada M.D., M.P.H. R2 Resident Physician Neurological Surgery Pager: [phone] signed by Vickie Estrada MD,MPH at 07/11/2018 3:53 PM Saniya De Oliveira MD - 07/11/2018 2:14 PM PDTClinic Date:07/11/2018 Gloria has had exposure of her cranioplasty plate. She was seen and discussed with Neurosu rgshanell. The closure had been pretty good at [...] of the implant. Ata White MD MW/MODL /[id number] signed by Ata White MD at 07/11/2018 3:28 PM PDTAngie Moreno PA-C - 07/11/2018 9:30 AM PDT DOS: 07/11/2018 Head and Neck Surgery Inpatient Daily Progress Note: Primary Care Provider: Mary Vazquez PA-C Admission Date: 07/10/2018 GLORIA BELL, [id number] Hospital Day #1 SUBJECTIVE INTERVAL EVENTS: To [...] breathing non-labored on RA LABS: Recent Labs 07/10/181746 NA 137 K 4.2 CL 105 BICARB 28 BUN 16 CR 0.88 GLU 90 CA 8.7 Invalid input(s): PHOS, CA Recent Labs 07/10/181746 WBC 7.32 RBC 4.31 HB 13.6 HCT 40.7 PLT 253 Recent Labs 07/10/181746 APTT 29.8 CBG's Recent Labs 05/20/19 1747 GLU 90 ASSESSMENT/PLAN: 68F with a [...] ANGIE FRENCH PA-C Otolaryngology-Head and Neck Surgery [facility] Pager [phone] Nettie Knowles PA - 07/11/2018 6:39 AM [...] RLB Gram Stain...........: Gram smear performed at [facility]. Culture: Final Report: No growth after 3 days. Final Report 04/29/2008 Corrected CSF Culture Source...............: Cerebrospinal Fluid RLB Gram Stain...........: Gram smear performed at [facility]. Culture: Rare Methicillin resistant Staphylococcus aureus Final ID MRSA Cefazolin R Clindamycin S Erythromycin R Oxacillin R Penicillin R Tetracycline S Trimeth/Sulfa S Vancomycin S Final Report Comment: Test performed at [facility]. 03/07/2008 Corrected CSF Culture Source...............: Cerebrospinal Fluid RLB Gram Stain...........: Gram smear performed at [facility]. Culture: Final Report: No growth after 3 days. Final Report Comment: Test performed at [facility]. 03/03/2008 Corrected CSF Culture Source...............: Cerebrospinal Fluid RLB Gram Stain...........: Gram smear performed at [facility]. Culture: Final Report: No growth after 3 days. Final Report Comment: Test performed at [facility]. 03/03/2008 Corrected Wound Culture Source...............: Skin Abscess RLB Gram Stain...........: Rare Squamous epithelial cells Rare PMN's Rare Gram positive cocci Culture: 1+ Methicillin resistant Staphylococcus aureus Final ID MRSA Cefazolin R Clindamycin S Erythromycin R Oxacillin R Penicillin R Tetracycline S Trimeth/Sulfa S Vancomycin S Final Report Resulted: 03/05/08 RLB ([facility]) [facility] [place] [address] [place] [address] Comment: Test performed at [facility]. CULTURE RESULT Date Value Ref [...] defect at bedside (suture) She presents to [facility] with wound dehiscence and exposed hardware. Plan for surgery today vi a explant of cranioplasty and primary wound closure by Dr White. PLAN: OR today for cranioplasty explant and primary wound closure. Anticipate return to 10K post op. NPO. Resume lisinopril post op. Continue atorvastatin, spironolactone, metoprolol. Nicotine patch. Post operative wound care per ENT. ANSON MULLINS [facility] [address] [place] [address] [address] [address] [address] Doug Dhaliwal M D - 07/10/2018 3:38 [...] Please contact the Neurosurgery resident on-call pager [phone] with questions or concerns. Vickie Estrada M.D., M.P.H. R2 Resident Physician Neurological Surgery Pager: [phone] signed by Doug Aponte MD at 07/10/2018 8:01 PM Anita cintron in this encounter Procedure Notes Adolfo Urbina MD - 07/11/2018 3:24 PM PDTAssociated Order(s): OPERATION RECORDDate of Serv ice: 07/11/2018 Attending Surgeon: Adolfo Urbina MD Hospice Patient Care Secretary(s): Kari Cavazos MD Preoperative Diagnoses: 1. Wound [...] imaging. Initial Surgical Contact: Neurosurgery at pager [phone]. Indications For Procedure: Please see [facility] for full details, but briefly, Marisela Bell [...] desiring cranioplasty for cosmetic reasons. We did licensed professional counselor her that she may require a [...] rought back to the operating room on [facility]. She was intubated without difficult [...] were correct x2. MD Adolfo Emmanuel MD JLG/MODL /[id number] aAta michael MD - 07/12/19 19 2:21 PM PDTAssociated Order(s): OPERATION RECORDDate of [...] up, woken up, extubated and sent to [facility] recovery room. Ata White MD MW/MODL /[id number] signed by Ata White MD at 07/11/2018 3:28 PM [facility] this [facility] Consult Notes Doug [...] called in yesterday after patient noticed that sandra coyle could feel her cranioplasty. Denies fevers/chills/nausea/vomiting/headaches. Has "felt fin e". Denies anti-plt/anti-coag medications. Review Of Systems: Negative unless noted above Past Histories Allergies: Allergies Allergen Reactions Bergen Tar Hives Betadine [Povidone-Iodine (With Soap)] Rash Cipro [Ciprofloxacin] Nausea and Vomiting Codeine Hcl Nausea and Vomiting Sulfa (Sulfonamide Antibiotics) Erythema Past Surgical History Procedure Laterality Date Partial thyroidectomy Right Hysterectomy Bladder suspension 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 Diabetes Specialist shunt Tympanoplasty Right 1987 Lumpectomy of left breast 1979 Coronary stent placement 12/28/2014 status post stent placement in the mid LAD Removal of vp site shunt Cholecystectomy Past Medical History: Diagnosis Date Abnormal LFTs (liver function tests) CAD in [place] artery s/p NSTEMI 12/27/2014; status post stent [...] for input(s): FIO2, PH, PCO2, PO2, HCO3, EINAT6IHF, H4OKXTYA, N4LSUHWZS in the l ast 720 hours. CSF [...] RLB Gram Stain...........: Gram smear performed at [facility]. Culture: Final Report: No growth after 3 days. Final Report 04/29/2008 CSF Culture Source...............: Cerebrospinal Fluid RLB Gram Stain...........: Gram smear performed at [facility]. Culture: Rare Methicillin resistant Staphylococcus aureus Final [...] primary closure Doug Aponte MD Neurosurgery PGY2 72372 Risk and Morbidity Patient Risk Modifiers - Including but not limited to. Age: 68 y.o. female DNR: Prior Transfer status/urgency : From Outside Hospital : From [facility] ER: Symptom Onset: Less than 12 hours (07/10/18 1) Patient Acuity: 3 (07/10/18920) Destination: Acute (07/10/18920) Palliative/end of Life Care :Not applicable First GCS and if Mechanically Ventilated/Intubated: Best Motor Response: 6-->(M6) obeys commands (07/10/18920) Best Verbal Response: 5-->(V5) oriented (07/10/18920) Best Eye Response: 4-->(E4) spontaneous (07/10/18920) Score (Byron Coma Scale): 15 (07/10/18920) Last GCS and if Mechanically Ventilated/Intubation: Best Motor Response: 6-->(M6) obeys commands (07/10/18920) Best Verbal Response: 5-->(V5) oriented (07/10/18920) Best Eye Response: 4-->(E4) spontaneous (07/10/18920) Score (Byron Coma Scale): 15 (07/10/18920) Comatose State: If GCS<9 Then patient by definition is in a comatose state Score (Byron Coma Scale) Min: 15 Max: 15 Loss [...] weeks. Continuous tobacco abuse Coronary arteriosclerosis in [place] artery 03/06/2015 History of non-ST elevation myocardial [...] additions o r exceptions. Adolfo Urbina MD Putty Worker - Skull base and Cerebrovascular Neurosurgery Department of Neurological Adult Daycare CoordinatorPutty Worker - Interventional Neuroradiology Alex Ochoa Department of Interventional Radiology [facility] Mel Blanca MD - 07/10/2018 9:34 AM PDTAssociated Order(s): IP CONSULT TO O TOLARYNGOLOGY OTOLARYNGOLOGY/HEAD & NECK SURGERY CONSULT H&P Date: 07/10/2018 Requesting Physician: Machelle Gaines MD Consult Attending: Ata White MD Chief Complaint: exposed cranioplasty HPI: Gloria Bell is a 68 y.o. 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 She developed [...] ruptured aneurysm (HCC) 2007 Goiter CAD in [place] artery s/p NSTEMI 12/27/2014; status post stent placement in the mid LAD Abnormal LFTs (liver function tests) MRSA (methicillin resistant staph aureus) culture positive post cariotomy for SAH Hemorrhagic stroke (HCC) 2007 aneurysm PONV (postoperative nausea and vomiting) Past Surgical History Procedure Date Partial thyroidectomy Hysterectomy Bladder suspension 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 Diabetes Specialist shunt Tympanoplasty 1987 Lumpectomy of left breast 1979 Coronary stent placement 12/28/2014 status post stent placement in the mid LAD Removal of vp site shunt Cholecystectomy Social History Tobacco Use Smoking status: Current Every Day Smoker Packs/day: 1.00 Years: 50.00 Pack years: 50.00 Types: Cigarettes Smokeless tobacco: Never Used Tobacco comment: Substance Use Topics Alcohol use: No Alcohol/week: 0.0 oz Drug use: No Family History Problem Relation Additional Family History Mother dementia Cancer Father brain Cancer Brother lung Allergies Allergen Reactions Bergen Tar Hives Betadine [Povidone-Iodine (With Soap)] Rash [...] Resident Physician, PGY1 Otolaryngology, H&N Surgery Pager [phone] Associated attestation - Ata White MD - 07/11/2018 11:31 AM PDTI saw and evaluated the pat ient. I repeated the xam and agree with the findings and the plan. Gont to or on tue Explant rotation of flaps closure of scalp 30 min spent coucncelingdocumented in this encounter ED Notes Carlos Eduardo Shah RN - 07/10/2018 3:14 PM PDTReport given to Ba HUERTAS arlos Eduardo Shah RN - 07/10/2018 11:17 [...] weeks. Continuous tobacco abuse Coronary arteriosclerosis in [place] artery 03/06/2015 History of non-ST elevation myocardial [...] ruptured aneurysm (HCC) 2007 Goiter CAD in [place] artery s/p NSTEMI 12/27/2014; status post stent placement in the mid LAD Abnormal LFTs (liver function tests) MRSA (methicillin resistant staph aureus) culture positive post cariotomy for SAH Hemorrhagic stroke ([facility]) 2007 aneurysm PONV (postoperative nausea and vomiting) Past Surgical History Procedure Date Partial thyroidectomy Hysterectomy Bladder suspension 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 Diabetes Specialist shunt Tympanoplasty 1987 Lumpectomy of left breast 1979 Coronary stent placement 12/28/2014 status post stent placement in the mid LAD Removal of vp site shunt Cholecystectomy Medications Prior to Admission Medications [...] daily. Facility-Administered Medications: None Allergies Allergen Reactions Bergen Tar Hives Betadine [Povidone-Iodine (With Soap)] Rash [...] of craniectomy and clipping from SAH in 208, complicated by hydrocepha elder s/p vps placement, [...] Discussed this case with neurosurgery resid ent environmental services manager and they will accept to their service. Given no fevers and hemodynamically stabl e, no indication for empiric antibiotics at this point. Spoke with ENT environmental services manager who did the procedure last month, they [...] co-wrote the ED Provider Note using the [employer] share function. I agree with the documentation findings and plan of care. In this note documentation noting the patient's drug/alcohol use may be incorrect. Review p atient's history. HIM Admin 04/20/19 0848 documented in this enco unter Miscellaneous Notes Plan of Care - Fabienne Navarro RN - 07/13/2018 6:32 PM PDTPatient Education Materials: AVStevie p rinted out after 10K pharmacist verified medications, discussed discharge paperwork and educ ation, all questions answered. PIVs removed, all belongings gathered and sent home with hailey ent. Patient discharged from hospital in wheelchair with family to drive her home. Additional Instructions: discussed follow up appointments, home crani care, smoking cessati on. Discharge Nurse: FABIENNE NAVARRO RN Date: 07/13/2018 Discharge Time: 1830 andoff - Jemima Holloway RN - 07/13/2018 1:08 AM PDTNursing Handoff [facility] IP NURSE HANDOFF: Nesbitt hospital course events: [...] d aneurysm (HCC) 2007, Goiter, CAD in [place] artery s/p NSTEMI 12/27/2014; status post stent [...] RN - 07/12/2018 5:14 PM PDTNursing Handoff [facility] IP NURSE HANDOFF: Nesbitt hospital course events: [...] d aneurysm (HCC) 2007, Goiter, CAD in [place] artery s/p NSTEMI 12/27/2014; status post stent [...] RN - 07/12/2018 2:07 PM PDTNursing Handoff [place] IP NURSE HANDOFF: Nesbitt [...] has had not pain to this point. Yeyo - Julia Melton RN - 07/12/2018 3:35 AM PDTNursing Handoff Patient Daily Goal: increase fluids (07/11/18 2330) [place] IP NURSE HANDOFF: Nesbitt hospital course [...] coverage of new implant. She presents to [facility] today with exposed synthetic bone flap and will be taken to OR for a e xplant of flap and wound revision. SAFETY Patient/Family Target: Gloria will use the callight when needing assistance. Progress to Target: Improving As evidenced by: Gloria uses the callight. She walks with supervision to the BR. BA turned off last night as she [...] precautions Barriers to discharge: Pending clinical course andoff - Ruben Burris RN - 07/11/2018 3:10 PM PDTMeets Phase I Discharge Criteria (Stable For Transfer): [...] Neurosurgery team 05/09, at which time Dr Ibanez performed a rotation advancement scalp flap for [...] pain medication information: none Functional Epidural: N/A HOROLOGIST: N/A Respiratory: RR: 15 , O2 Sat: 92 % , O2 Delivery: Nasal cannula Breath Sounds: Ex DARIEN: LLL: RUL: RLL: MELISSA No Comment: persistent cough and has COPD Cardiac: BP: 106/47 HR: 71 GI: Nausea/Vomiting Status: Yes- Signs/Symptoms: intermittent nausea Interventions: antiemetic given Assessment: relief of signs/symptoms Comments: resolved : Last void: preop Contact Name: Juan BOYKIN Contact Number: [phone] Family contacted: Yes Comment: no answer Belongings: [...] imaging Initial surgical contact: neurosurgery at pager [phone] Patient Lines/Drains/Airways Status Active Lines, Drains and Airways Name: Placement date: Placement time: Site: Days: Peripheral IV Right Wrist 22 g 07/10/18 1104 Wrist 1 Peripheral IV Right Antecubital 20 g 07/10/18 1305 Antecubital less than 1 Wound Left thumb Other (Comment) 12/03/17 2200 thumb 219 Wound Midline coccyx Pressure ulcer 12/03/17 2200 coccyx 219 Incision Right head 12/05/172126 217 Incision Right adb- upper quadrant 12/05/17 218 Incision Right head- frontal 05/08/18 64 KARI CAVAZOS MD androhith - Julia Melton RN - 07/11/2018 6:07 AM PDTNursing Handoff Patient Daily Goal: get rest (07/11/18 0005) [facility] IP NURSE HANDOFF: Nesbitt hospital course events: [...] coverage of new implant. She presents to [facility] today with exposed synthetic bone flap and [...] Daily Goal: prepare for surgery tomorrow (07/10/18 9331) [facility] IP NURSE HANDOFF: Nesbitt hospital course events: [...] coverage of new implant. She presents to [facility] today with exposed synthetic bone flap and [...] Per clinical course lan of Care - Darterryleonides Ayush serra, TEST RACK OPERATOR - 07/10/2018 4:51 PM PDTFormatting of this [...] BID per home regimen. D Teaching Not Machelle Quiñonez MD - 07/10/2018 12:17 PM PDTPlease see [...] Attending | | Surgeon: Adolfo Urbina MD Hospice Patient Care Secretary(s): Kari Cavazos MD | | Preoperative Diagnoses: [...] Surgical Contact: Neurosurgery | | at pager [phone].Indications For Procedure: Please see [facility] for full details, but | | briefly, Marisela Bell is a 68-year-old woman who had a previous high-grade | | subarachnoid hemorrhage in 2007. 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 | | She subsequently was lost to followup and then re-presented in 2016 with resorption of | | her bone flap and loose hardware. She had underwent synthetic cranioplasty at that | | time, but had exposed cranioplasty in November 2017, which was then explanted. She then | | returned our clinic desiring cranioplasty for cosmetic reasons. We did licensed professional counselor her that | | she may [...] brought back to the operating room on [facility]. She was | | intubated without [...] and instrument counts were | | correct x2.Kari LING Rita, MDJesse J Urbina, MDJLG/MODLDD: 07/11/2018 15:04:23DT: 07/11/2018 | | 15:24:02Jo #: [id number] | | | |Indications For Procedure: Please see Epic for full details, but briefly, Marisela Bell [...] plasty for cosmetic reasons. We did | |licensed professional counselor her that she may require a [...] rought back to the operating room on [facility]. She was intubated without difficult [...] |JLG/MODL | | | | | | /[id number] | + + CAPILLARY BLOOD GLUCOSE (NO [...] | + + + + + | [facility] | [address] | [place], [place] | | | [facility] | [address] | [address] | | | TESTS | | | | + + + + + OPERATION RECORD (07/11/2018 2:21 PM PDT) + + | Procedure Note | + + | Ata White MD - 07/11/2018 2:21 PM PDT Date of Service: 07/11/2018 Attending | | Surgeon:Ata White MD Gloria was brought to | | the operating [...] to the recovery room.Ata White | | MELI/SWAPNILLDD: 07/11/2018 14:09:26DT: 07/11/2018 14:21:09Job #: [id number] | | | | | |Ata White MD | |CHANDRIKA/NGUYEN | | | | | | /[id number] | + + CULTURE, FUNGAL EXCEPT BLOOD, [...] + | [facility] - | [address] | [place] [address] | | | [place] | | | [...] + | [facility] | [address] | [place] [address] | | | [place] | | | | + + + [...] | + + + + + | [facility] | [address] | [place] [address] | | | [facility] | | | | + + + [...] + + | [facility] | [address] | [place] [address] | | | SERVICES, CORE | PARK [...] | + + + + + | [facility] | [address] | [place] [address] | | | SERVICES, CORE | RAMSES [...] [facility] | [address] | [place] [address] | | | SERVICES, CORE | PARK [...] + + + + + | [facility] | [address] | [place] [address] | | | RYAN ORNELAS | PARK [...] | + + + + + | [facility] | [address] | [place] [address] | | | RYAN ORNELAS | RAMSES [...] | | | LABORATORY | | | [place] | | | SERVICES, | | | [...] MDRD equation recommended by the National | [facility] | | Kidney Disease Education Program. Estimated [...] | + + + + + | [facility] | [address] | [place] [address] | | | SERVICES, CORE | RAMSES [...] MD 07/10/2018 2:59 PM Dictation initiated: Brandon Boyle | Tamar Roger MD 07/10/2018 2:16 PM | | [...] + | Diagnosis | + + | Other acquired deformity of head | + + [...] | | | dose on 07/10/18 at 1700, | | AM PDT | [...] +---+---+ | | | +---+---+ + +-------+ +---+---+ + | bacitracin 50,000 Units, | Given | 07/12/19 | | | Surgical | | ringers (TIS-U-YUDELKA) 1,000 mL | | 19 12:47 | | | Site | | INTRAPROCEDURE PRN, Starting Tue | | PM PDT | | | | | 07/11/18 at 1247, Until Tue | | | | | | | 07/11/18 at 1414 | | | | | | + +-------+ +---+---+ + +---+---+ | | | +---+---+ + +-------+ +---------+---+------+ | bacitracin ointment | Given | 07/12/19 | 1 strip | | Head | | INTRAPROCEDURE PRN, Starting Tue | | 19 1:44 | | | | | 07/11/18 at 1344, Until Tue | | PM PDT | | | | | 07/11/18 at 1414 | | | | | | + +-------+ +---------+---+------+ + +---+ | | | + +---+ [...] | + +---+ + +-------+ +-------+---+---+ | spironolactone (ALDACTONE) | Given | 07/14/19 | 25 mg | | | | tablet 25 mg 25 mg, oral, DAILY, | | 19 9:35 | | | | | First dose on 07/10/18 at | | AM PDT | | [...] thrombin 5000 unit topical | Given | 07/12/19 | 5,000 | | Surgical | | solution INTRAPROCEDURE PRN, | | 19 12:47 | Units | | Site | | Starting 07/11/18 at 1247, | | PM PDT | | | | | Until 07/11/18 at 1414 | | | | | | + +-------+ +--------+---+ + +---+---+ | | | +---+---+ documented in this encounter
--- OUTSIDE RECORDS SUMMARY | ~2019-10-22 | XMS | Encounter Summary ---
Demographics + + + | Address | [address] | | | [place] [address] | + + + | Home Phone | | + + + | Preferred Language | Unknown | + + + | Marital Status | | + + + | Jewish Affiliation | Unknown | + + + | Race | White | + + + | Ethnic Group | Not or | + + + Author + + + | Author | [facility]erged With [facility] | | | and [place] | + + + | Organization | Merged With [facility] | | | [...] Team Providers + +------+ + | Care Production Supervisor Off Shift Name | Role | Phone | + +------+ + | Lance Pandya DO | PCP | | + +------+ + Encounter Details +--------+ + + + + | Date | Type | Department | Care Team | Description | +--------+ + + + + | 09/15/ | Hospital | [facility] | Conversion | Abnormal nuclear | | 2017 | Encounter | [facility]ICAL [facility]ENTER | Transaction, | stress test; | | | | CLINICAL DECISION | Provider Unknown | Atypical chest pain; | | | | [address] | [phone] | SOB (shortness of | | | | [place], [place] | | breath) on exertion; | | | | [phone] | Josefina Santana, | Coronary artery | | | | [phone] | MD [address] | disease of [place] | | | | | [place] [address] | artery of [place] | | | | | [phone] | heart with stable | | | | | | angina pectoris | | | | | | (HCC) | +--------+ + + + + Social [...] + + + | Blood Pressure | 117/68 | 09/15/2016 9:26 PM | | | | | PDT | | + + + + + | Pulse | 82 | 09/15/2016 9:26 PM | | | | | PDT | | + + + + + | Temperature | 36.6 C (97.9 F) | 09/15/2016 9:26 PM | | | | | PDT | | + + + + + | Respiratory Rate | 16 | 09/15/2016 9:26 PM | | | | | PDT | | + + + + + | Oxygen Saturation | - | - | | + + + + + | Inhaled Oxygen | - | - | | | Concentration | | | | + + + + + | Weight | 51.3 kg (113 lb 3.2 | 09/15/2016 9:26 PM | | | | oz) | PDT | | + + + + + | Height | 149.9 cm (4' 11") | 09/15/2016 9:26 PM | | | | | PDT | | + + + + + | Body Mass Index | 22.86 | 09/15/2016 9:26 PM | | | | | PDT [...] +---------+ + + | atorvaSTATin | Take 2 tablets by | 180 | 3 | 08/10/19 | | | (LIPITOR) 20 mg | mouth Daily. | tablet | | 17 | | | tablet | | | [...] documented as of this encounter Progress Notes Conversion Transaction, Provider Unknown - 09/15/2016 9:31 PM PDTFormatting of this note m ight be different from the original. Nurse Progress Note by Nnamdi Elias RN at 09/15/162130 Author: Nnamdi Elias RN Service: (none) Author Type: Registered Nurse Filed: 09/15/162133 Date of Service: 09/15/162130 Status: Signed Manufacturing Assistant: Nnamdi Elias RN (Registered Nurse) Discharge instructions provided. Patient verbalized understanding. Peripheral IV D/C per pr otocol. Patient tolerated well. Patient discharged home with AVS, [employer] card and belongings. Family will drive patient home. Patient transported out of hospital by staff via [facility]. onver gabriel Transaction, Provider Unknown - 09/15/2016 9:00 PM PDT Nurse Progress Note by Nnamdi Elias RN at 09/15/162099 Author: Nnamdi Elias RN Service: (none) Author Type: Registered Nurse Filed: 09/15/162120 Date of Service: 09/15/162099 Status: Signed Manufacturing Assistant: Nnamdi Elias RN (Registered Nurse) Patient assisted out of bed for ambulation. Voided in the bathroom with adequate amount of urine output. Ambulated in the hallway without chest pain, SOB, dizziness or N/V. Left groin site reassessed without hematoma or bleeding. VSS. Will continue. docume nted in this encounter H&P Notes Josefina Santana MD - 09/15/2016 4:09 PM PDTFormatting of this note might be diffe rent from the original. H&P by Josefina Santana MD at 09/15/16 1609 Author: Josefina Santana MD Service: Cardiology Author Type: Physician Filed: 09/15/16 1610 Date of Service: 09/15/16 1609 Status: Signed Manufacturing Assistant: Josefina Santana MD (Physician) [facility] Service: Cardiology Admission History & Physical Date of Admission: 09/15/2016 Addendum Please see office vit note from 09/07/2016 below. No interval change. Progress Notes Cielo Bell (MR# [id number]) Progress Notes Info Author Note Status Last Update User Last Update Date/Time Josefina Santana MD Signed Josefina Santana MD 09/09/2016 7:05 PM Progress Notes by Josefina Santana MD at 09/07/16 1605 Author: Josefina Santana MD Service: (none) Author Type: Physician Filed: 09/09/16 1905 Encounter Date: 09/07/2016 Status: Signed Manufacturing Assistant: Josefina Santana MD (Physician) Related Notes: Original Note by Josefina Santana MD (Physician) filed at 09/07/16 1704 Expand All Collapse All Subjective Subjective: Patient ID: Cielo Bell is a 66 y.o. female. Chief Complaint Patient presents with Referral abn nuc, needs cath per dr Luu HPI It is my pleasure to see this patient at [facility] today. She is a pleasant, 66-year-old female with a 40-pupq-olyf history of smoking and a history of COPD, dyslipidem ia, and coronary artery disease status post prior myocardial infarction and stenting of the mid left anterior descending artery using a bare-metal stent at [facility]. She was referred for further evaluation of abnormal nuclear stress test. The patient had a nlv-FZ-dpsmbctxe myocardial infarction back on December 28, 2014. At that time, she was found to have 100% occluded left anterior descending artery and mild right cor onary artery, minimal left circumflex artery. She had a bare-metal stent placed in the left anterior descending artery as the patient was anticipating craniotomy surgery for cerebral a neurysm. She had been experiencing on-and-off atypical chest pains and was evaluated with ph armacologic nuclear stress test which was reported as large-sized, fixed severe defect in th e entire anterior, anteroseptal, mid and distal inferior, intraseptal, inferolateral, and an terolateral overall suggesting multivessel coronary artery disease with overall left ventric ular systolic function reduced and calculated at 16%. Of note is that the patient had normal left ventricular systolic function back on December 28, 2014, at the time she had non-ST-lyric vation myocardial infarction and stenting of the left anterior descending artery. The patien t had been having on-and-off episodes of chest pain that radiated to the left arm. She descr ibed it as just an ache, about 4/10 in severity, and usually lasting for a few minutes. She noted it more with stress, although she does not notice it as much with exercise. She has no t been doing much activity, however, and is very sedentary. She recalls that one time she wa s trying to dance and became very short of breath. She had noted that she had decreased exer cise tolerance and gets tired and fatigued easily. She had to stop when she was trying to do activities such as vacuuming. She denies orthopnea, paroxysmal nocturnal dyspnea, palpitati ons, lightheadedness, presyncope, or syncope. She continues to smoke 1 pack a day. The following portions of the patient's history were reviewed and updated as appropriate: a llergies, current medications, past family history, past medical history, past social histor y, past surgical history and problem list. Review of Systems Constitutional: Positive for fatigue. Negative for fever. HENT: Negative for nosebleeds and sore throat. Eyes: Negative for redness and visual disturbance. Respiratory: Positive for cough and shortness of breath. Negative for chest tightness. Cardiovascular: Positive for chest pain. Negative for palpitations and leg swelling. Gastrointestinal: Negative for nausea, vomiting, diarrhea and blood in stool. Genitourinary: Negative for dysuria and frequency. Musculoskeletal: Negative for joint swelling and arthralgias. Skin: Negative for rash and wound. Neurological: Negative for dizziness, seizures, syncope, light-headedness and headaches. Hematological: Does not bruise/bleed easily. Psychiatric/Behavioral: Negative for dysphoric mood. The patient is not nervous/anxious. Objective BP 111/56 mmHg | Pulse 80 | Resp 18 | Ht 1.499 m (4' 11") | Wt 52.164 kg (115 lb) | BMI 23 .21 kg/m2 | SpO2 97% Objective: Physical Exam Constitutional: She is oriented to person, place, and time. She appears well-developed and well-nourished. No distress. HENT: Head: Normocephalic and atraumatic. Eyes: No scleral icterus. Neck: Neck supple. No JVD present. Carotid bruit is not present. Cardiovascular: Normal rate, regular rhythm, S1 normal and S2 normal. Exam reveals no gall op and no friction rub. No murmur heard. Pulmonary/Chest: Effort normal. No stridor. No respiratory distress. She has decreased lucio th sounds. She has no wheezes. She has no rales. She exhibits no tenderness. Abdomina/Gl: Soft. Bowel sounds are normal. There is no tenderness. Musculoskeletal: She exhibits no edema or tenderness. Neurological: She is alert and oriented to person, place, and time. No cranial nerve defici t. Skin: Skin is warm and dry. No rash noted. She is not diaphoretic. No erythema. No pallor. Psychiatric: She has a normal mood and affect. Encounter Medications Outpatient Encounter Prescriptions as of 09/07/2016 Medication Sig Dispense Refill aspirin 81 MG chewable tablet Take 81 mg by mouth daily. ipratropium-albuterol (DUO-NEB) 0.5-2.5 mg/3mL 3 mLs 4 (four) times daily. METOPROLOL SUCCINATE ER PO Take 25 mg by mouth daily. nitroGLYCERIN (NITRODUR) 0.4 MG/HR Place 1 patch onto the skin daily. terbinafine (LAMISIL) 250 MG tablet Take 250 mg by mouth daily. [DISCONTINUED] atorvastatin (LIPITOR) 20 MG tablet Take 40 mg by mouth. atorvastatin (LIPITOR) 80 MG tablet Take 1 tablet by mouth nightly. 30 tablet 11 fluticasone-salmeterol (ADVAIR) 250-50 MCG/DOSE Inhale 1 puff into the lungs 2 (two) ti mes daily. 60 each 5 lisinopril (ZESTRIL) 2.5 MG tablet Take 1 tablet by mouth daily. 30 tablet 11 spironolactone (ALDACTONE) 25 MG tablet Take 0.5 tablets by mouth daily. 15 tablet 11 Facility-Administered Encounter Medications as of 09/07/2016 Medication Dose Route Frequency Provider Last Rate Last Dose fentaNYL (SUBLIMAZE) injection 200 mcg 200 mcg Intravenous Q1H PRN Josefina Santana MD midazolam (VERSED) injection 1-6 mg 1-6 mg Intravenous PRN Josefina Santana MD DATA Regadenoson Nuclear stress test 08/06/2016 1. Regadenoson EKG is negative. 2. Abnormal Regadenoson Sestamibi myocardial perfusion study with a very large size, fixed defect of a severe in severity of the entire anterior, anteroseptal, mid and distal inferior, inferoseptal, inferolateral and anterolateral. This suggests a multi-vessel coronary artery disease with evidence of a very large size scar of all 3 vessel territories. Left ventricular cavity is markedly dilated. 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 There is a severe global hypokinesis of the left ventricle. Overall, left ventricular systolic function is severely decreased. LVEF by gated SPECT is 16%. Signed by: Lynsey Subramanian MD [facility] 08/06/2016, 12:18 Cath 12/28/2014 Dr. Luu CONCLUSIONS: 1. Elevated EDP 35 2. No gradient on pullback 3. Normal Left main 4. 100% Mid LAD 5. No residual stenosis and JOÃO 3 flow restored 6. Minimal plaque of the LCX 7. 20-30% mid RCA with collaterals to the LAD [place] 12/28/2014 IMPRESSIONS: 1. Normal LV size and mild apical hypokinesis with overall preserved systolic function with LVEF 54%. 2. Mild aortic insufficiency without significant stenosis. 3. Normal pulmonary pressures. 4. Grade 1 LV diastolic dysfunction. No results found for: WBC, RBC, HGB, HCT, PLT No results found for: NA, K, CL, CO2, ANIONGAP, GLUF, BUN, CREATININE, BCR, CA, EGFR No results found for: CHOL, TRIG, LDL, HDL, GLUF, HGBA1C No results found for: BNP, CKTOTAL, TSH, CRP No results found for: METF, NMETFX, TFNMFX, [id number], HVAPAI42NNB, TOTEPI Assessment/Plan Assessment and Plan: 1. Coronary artery disease, prior pfd-BL-lscdwyqgg myocardial infarction, status post stent ing of the mid left anterior descending artery using 2 overlapping bare-metal stents, 2.5 x 20 and 2.5 x 12, on December 28, 2014. Currently with equivalent angina. 2. Atypical chest pain. 3. Exertional shortness of breath. 4. Decreased exercise tolerance. 5. Severe cardiomyopathy with ejection fraction of 17%. 6. Dyslipidemia. 7. Smoking. 8. Chronic fatigue. I reviewed the reports of cardiac catheterization and echocardiogram from December of 2014 and recent Lexiscan nuclear stress test. I discussed all these findings with the patient and her daughter. The nuclear stress test is abnormal and high risk stress test as there is severe reduction in left ventricular systolic function of 17%, which is new compared to December of 2014. Als o, there are extensive areas of infarcts that extend beyond the previous area of the left an terior descending artery alone. Her exertional shortness of breath and decreased exercise tolerance are likely angina equiv alent. I have recommended coronary angiogram and possible percutaneous intervention. I have discuss the procedure risks, benefits, and alternatives in detail with the patient. The risk s including, but are not limited to, , stroke, need for emergent heart surgery, infecti on, bleeding, injury to vessels or nerves, radiation-related skin rashes, kidney failure, an d respiratory compromise with sedation and possible need for intubation were all discussed. She understood and agreed to proceed. The patient will continue aspirin and Toprol XL currently at low dose. I will start her on lisinopril 2.5 mg and Aldactone 12.5 mg. I will increase her atorvastatin dose from 40 mg up to 80 mg. We will check fasting lipid panel at the time she comes for cardiac catheterization. I advised the patient to quit smoking. She had failed trials for Wellbutrin in the past and nicotine patches, actually she was smo cayetano while she was on nicotine patches. She did not try Chantix yet. We will give her a tria l of Chantix after coronary evaluation next week. We will schedule the patient to come back for followup in 4 weeks. Thank you for allowing me to participate in the care of this patient. Will also do an echocardiogram to rule out valvular heart disease, and have more accurate a ssessment of left ventricular systolic function. Code Status: Prior Primary Care Physician: HEIDI Santana MD 09/15/2016 documented i n this encounter ED Notes Conversion Transaction, Provider Unknown - 09/15/2016 5:47 PM PDTFormatting of this note m ight be different from the original. ED Notes by Caitlin Hobson RN at 09/15/161746 Author: Caitlin Hobson RN Service: Cardiology Author Type: Registered Nurse Filed: 09/15/161747 Date of Service: 09/15/161746 Status: Signed Manufacturing Assistant: Caitlin Hobson RN (Registered Nurse) Pt had strong reaction to Adenosine for FFR, became extremely short of breath and distresse d. NC to 5L, then NRB on, pt more settled and now satting 95% on NRB. Will continue to mon itor closely. ETCO2 WDL. onver gabriel Transaction, Provider Unknown - 09/15/2016 4:58 PM PDT ED Notes by Caitlin Hobson RN at 09/15/161657 Author: Caitlin Hobson RN Service: Cardiology Author Type: Registered Nurse Filed: 09/15/161657 Date of Service: 09/15/161657 Status: Signed Manufacturing Assistant: Caitlin Hobson RN (Registered Nurse) Patient denies pain and is resting comfortably. LEFT radial approach. onver gabriel Transaction, Provider Unknown - 09/15/2016 4:46 PM PDT ED Notes by Caitlin Hobson RN at 09/15/161645 Author: Caitlin Hobson RN Service: Cardiology Author Type: Registered Nurse Filed: 09/15/161647 Date of Service: 09/15/161645 Status: Signed Manufacturing Assistant: Caitlin Hobson RN (Registered Nurse) Patient denies pain and is resting comfortably. Radial approach aborted, Dr. Santana attempt ing femoral approach. docume nted in this encounter Miscellaneous Notes Plan of Care - Conversion Transaction, Provider Unknown - 09/15/2016 9:34 PM PDT Plan of Care by Nnamdi Elias RN at 09/15/162133 Author: Nnamdi Elias RN Service: (none) Author Type: Registered Nurse Filed: 09/15/162133 Date of Service: 09/15/162133 Status: Signed Manufacturing Assistant: Nnamdi Elias RN (Registered Nurse) Patient's discharge needs are met Completed Patient's pain/discomfort is manageable Completed Patient will be injury free during hospitalization Completed lan o f Care - Conversion Transaction, Provider Unknown - 09/15/2016 9:27 PM PDTFormatting of thi s note might be different from the original. Plan of Care by Nnamdi Elias RN at 09/15/162126 Author: Nnamdi Elias RN Service: (none) Author Type: Registered Nurse Filed: 09/15/162127 Date of Service: 09/15/162126 Status: Signed Manufacturing Assistant: Nnamdi Elias RN (Registered Nurse) Patient's discharge needs are met Progressing Patient's pain/discomfort is manageable Progressing Patient will be injury free during hospitalization Progressing docume nted in this encounter Plan of Treatment Not on filedocumented as of this encounter Procedures + +--------+ + + + | Procedure Name | Priori | Date/Time | Associated Diagnosis | Comments | | | ty | | | | + +--------+ + + + | ACTIVATED CLOTTING | Routin | 09/15/2016 | | Results for this | | TIME | e | 5:42 PM | | procedure are in the | | | | PDT | | results section. | + +--------+ + + + | ACTIVATED CLOTTING | Routin | 09/15/2016 | | Results for this | | TIME | e | 5:33 PM | | procedure are in the | | | | PDT | | results section. | + +--------+ + + + | ACTIVATED CLOTTING | Routin | 09/15/2016 | | Results for this | | TIME | e | 5:22 PM | | procedure are in the | | | | PDT | | results section. | + +--------+ + + + | EXTERNAL LAB: CBC | Routin | 09/15/2016 | | Results for this | | | e | 2:59 PM | | procedure are in the | | | | PDT | | results section. | + +--------+ + + + | LIPID PANEL | Routin | 09/15/2016 | | Results for this | | | e | 2:59 PM | | procedure are in the | | | | PDT | | results section. | + +--------+ + + + | HEPATIC FUNCTION | Routin | 09/15/2016 | | Results for this | | PANEL | e | 2:59 PM | | procedure are in the | | | | PDT | | results section. | + +--------+ + + + | BASIC METABOLIC | Routin | 09/15/2016 | | Results for this | | PANEL | e | 2:59 PM | | procedure are in the | | | | PDT | | results section. | + +--------+ + + + documented in this encounter Results Activated clotting time (09/15/2016 5:42 PM PDT) + + + + + + | Component | Value | Ref Range | Performed | Pathologist | | | | | At | Signature | + + + + + + | Activated | 208 (H)Comment: Testing | 74 - 137 | EXTERNAL | | | Clotting | performed at [facility] [place]888 | seconds | LAB | | | time, POC | [address];[place] | | | | | | [address] | | | | + + + + + + + + | Specimen | + + | | + + + +---------+ + + | Performing | Address | City/State/Zipcode | Phone Number | | Organization | | | | + +---------+ + + | EXTERNAL LAB | | | | + +---------+ + + Activated clotting time (09/15/2016 5:33 PM PDT) + + + + + + | Component | Value | Ref Range | Performed | Pathologist | | | | | At | Signature | + + + + + + | Activated | 241 (H)Comment: Testing | 74 - 137 | EXTERNAL | | | Clotting | performed at [facility] [place];888 | seconds | LAB | | | time, POC | [address];[place] | | | | | | [address] | | | | + + + + + + + + | Specimen | + + | | + + + +---------+ + + | Performing | Address | City/State/Zipcode | Phone Number | | Organization | | | | + +---------+ + + | EXTERNAL LAB | | | | + +---------+ + + Activated clotting time (09/15/2016 5:22 PM PDT) + + + + + + | Component | Value | Ref Range | Performed | Pathologist | | | | | At | Signature | + + + + + + | Activated | 202 (H)Comment: Testing | 74 - 137 | EXTERNAL | | | Clotting | performed at [facility] [place];888 | seconds | LAB | | | time, POC | [address];[place], [place] | | | | | | [address] | | | | + + + + + + + + | Specimen | + + | | + + + +---------+ + + | Performing | Address | City/State/Zipcode | Phone Number | | Organization | | | | + +---------+ + + | EXTERNAL LAB | | | | + +---------+ + + External Lab: CBC (09/15/2016 2:59 PM PDT) + + + + + + | Component | Value | Ref Range | Performed | Pathologist | | | | | At | Signature | + + + + + + | WBC | 8.90 | 3.80 - 11.00 | EXTERNAL | | | | | K/uL | LAB | | + + + + + + | Non- | 4.54 | 3.70 - 5.10 | EXTERNAL | | | Red Blood | | M/uL | LAB | | | Cells | | | | | | Counted | | | | | + + + + + + | Hemoglobin | 14.6 | 11.3 - 15.5 | EXTERNAL | | | | | g/dL | LAB | | + + + + + + | Hematocrit, | 42.1 | 34.0 - 46.0 % | EXTERNAL | | | POC | | | LAB | | + + + + + + | MCV | 92.6 | 80.0 - 100.0 fl | EXTERNAL | | | | | | LAB | | + + + + + + | MCH | 32.2 | 27.0 - 34.0 pg | EXTERNAL | | | | | | LAB | | + + + + + + | MCHC | 34.7 | 32.0 - 35.5 | EXTERNAL | | | | | g/dL | LAB | | + + + + + + | RDW-CV | 45.1 | 37 - 53 fl | EXTERNAL | | | | | | LAB | | + + + + + + | Platelet | 205 | 150 - 400 K/uL | EXTERNAL | | | Count | | | LAB | | | Plasma | | | | | + + + + + + | MPV | 8.7 | fl | EXTERNAL | | | | | | LAB | | + + + + + + | Differentia | AUTOMATED | | EXTERNAL | | | l Type | | | LAB | | + + + + + + | % Segmented | 62.42 | % | EXTERNAL | | | | | | LAB | | | Neutrophils | | | | | + + + + + + | % | 22.56 | % | EXTERNAL | | | Lymphocytes | | | LAB | | + + + + + + | % Monocytes | 10.57 | % | EXTERNAL | | | | | | LAB | | + + + + + + | % | 3.30 | % | EXTERNAL | | | Eosinophils | | | LAB | | + + + + + + | % Basophils | 1.15 | % | EXTERNAL | | | | | | LAB | | + + + + + + | Absolute | 5.56 | 1.90 - 7.40 | EXTERNAL | | | Segmented | | K/uL | LAB | | | Neutrophils | | | | | + + + + + + | Absolute | 2.01 | 1.00 - 3.90 | EXTERNAL | | | Lymphocytes | | K/uL | LAB | | + + + + + + | Absolute | 0.94 (H) | 0.00 - 0.80 | EXTERNAL | | | Monocytes | | K/uL | LAB | | + + + + + + | Absolute | 0.29 | 0.00 - 0.50 | EXTERNAL | | | Eosinophils | | K/uL | LAB | | + + + + + + | Absolute | 0.10Comment: Testing | 0.00 - 0.10 | EXTERNAL | | | Basophils | performed at [facility] [place];[address] | K/uL | LAB | | | | [address];[place] | | | | | | [address] | | | | + + + + + + + + | Specimen | + + | Blood specimen | | (specimen) | + + + +---------+ + + | Performing | Address | City/State/Zipcode | Phone Number | | Organization | | | | + +---------+ + + | EXTERNAL LAB | | | | + +---------+ + + Hepatic Function Panel (09/15/2016 2:59 PM PDT) + + + + + + | Component | Value | Ref Range | Performed | Pathologist | | | | | At | Signature | + + + + + + | Protein, | 7.4 | 6.3 - 8.2 g/dL | EXTERNAL | | | Total | | | LAB | | + + + + + + | Albumin | 3.6 | 3.3 - 4.8 g/dL | EXTERNAL | | | | | | LAB | | + + + + + + | Bilirubin | 0.4 | 0.1 - 1.5 mg/dL | EXTERNAL | | | Total | | | LAB | | + + + + + + | Bilirubin | <0.1 | 0.0 - 0.3 mg/dL | EXTERNAL | | | Direct | | | LAB | | + + + + + + | ALP, | 107 | 35 - 115 U/L | EXTERNAL | | | External | | | LAB | | + + + + + + | AST | 21 | 10 - 45 U/L | EXTERNAL | | | | | | LAB | | + + + + + + | ALT | 35Comment: Testing | 10 - 65 U/L | EXTERNAL | | | | performed at [facility], [address] | | LAB | | | | [address], | | | | | | [place] [address] | | | | + + + + + + + + | Specimen | + + | | + + + +---------+ + + | Performing | Address | City/State/Zipcode | Phone Number | | Organization | | | | + +---------+ + + | EXTERNAL LAB | | | | + +---------+ + + Lipid Panel (09/15/2016 2:59 PM PDT) + + + + + + | Component | Value | Ref Range | Performed | Pathologist | | | | | At | Signature | + + + + + + | Cholesterol | 136 | mg/dL | EXTERNAL | | | | | | LAB | | + + + + + + | Triglycerid | 116 | mg/dL | EXTERNAL | | | es | | | LAB | | + + + + + + | HDL | 55 | mg/dL | EXTERNAL | | | | | | LAB | | + + + + + + | LDL, | 58Comment: Testing | mg/dL | EXTERNAL | | | Calculated | performed at [facility], [address] | | LAB | | | | [address], | | | | | | [place] [address] | | | | + + + + + + + + | Specimen | + + | Blood specimen | | (specimen) | + + + +---------+ + + | Performing | Address | City/State/Zipcode | Phone Number | | Organization | | | | + +---------+ + + | EXTERNAL LAB | | | | + +---------+ + + Basic Metabolic Panel (09/15/2016 2:59 PM PDT) + + + + + + | Component | Value | Ref Range | Performed | Pathologist | | | | | At | Signature | + + + + + + | Na | 139 | 135 - 145 | EXTERNAL | | | | | mmol/L | LAB | | + + + + + + | K | 4.4 | 3.5 - 4.9 | EXTERNAL | | | | | mmol/L | LAB | | + + + + + + | Cl | 106 | 99 - 109 mmol/L | EXTERNAL | | | | | | LAB | | + + + + + + | CO2 | 27 | 23 - 32 mmol/L | EXTERNAL | | | | | | LAB | | + + + + + + | Anion Gap | 10 | 5 - 20 mmol/L | EXTERNAL | | | | | | LAB | | + + + + + + | Glucose, | 96 | 65 - 99 mg/dL | EXTERNAL | | | Fasting | | | LAB | | + + + + + + | BUN | 13 | 8 - 25 mg/dL | EXTERNAL | | | | | | LAB | | + + + + + + | Creatinine | 0.78 | 0.50 - 1.00 | EXTERNAL | | | | | mg/dL | LAB | | + + + + + + | BUN/Creatin | 16 | | EXTERNAL | | | ine Ratio | | | LAB | | + + + + + + | Calcium | 8.8 | 8.5 - 10.5 | EXTERNAL | | | | | mg/dL | LAB | | + + + + + + | Estimated | >60Comment: GFR <60: | mL/min/1.73m2 | EXTERNAL | | | GFR | CHRONIC KIDNEY DISEASE, | | LAB | | | | IF FOUND OVER A 3 MONTH | | | | | | PERIOD.GFR <15: KIDNEY | | | | | | FAILURE.FOR | | | | | | AMERICANS, MULTIPLY THE | | | | | | CALCULATED GFR BY | | | | | | 1.210.Testing performed | | | | | | at [facility] [place];[address] | | | | | | [place] [address] | | | | + + + + + + + + | Specimen | + + | Blood specimen | | (specimen) | + + + +---------+ + + | Performing | Address | City/State/Zipcode | Phone Number | | Organization | | | | + +---------+ + + | EXTERNAL LAB | | | | + +---------+ + + documented in this encounter Visit Diagnoses + + | Diagnosis | + + | Abnormal nuclear stress test Other nonspecific abnormal cardiovascular system | | function study | + + | Atypical chest pain Other chest pain | + + | SOB (shortness of breath) on exertion Shortness of breath | + + | Coronary artery disease of [place] artery of [place] heart with stable angina pectoris | | (HCC) | + + documented in this encounter
--- OUTSIDE RECORDS SUMMARY | ~2019-10-22 | XMS | Encounter Summary ---
Demographics + + + | Address | [address] | | | [place] [address] | + + + | Home Phone [...] Team Providers + +------+ + | Care Pin Pusher Name | Role | Phone | + +------+ + | Mary Vazquez PA-C | PCP | | + +------+ + Encounter Details +--------+--------+ + + + | Date | Type | Department | Care Team | Description | +--------+--------+ + + + | 10/04/ | Travel | | | | | [...]
--- OUTSIDE RECORDS SUMMARY | ~2019-10-22 | XMS | Encounter Summary ---
Demographics + + + | Address | [address] | | | [place] [address] | + + + | Home Phone | | + + + | Preferred Language | Unknown | + + + | Marital Status | | + + + | Hinduism Affiliation | Unknown | + + + | Race | White | + + + | Ethnic Group | Not or | + + + Author + + + | Author | [facility] | | | and [place] | + + + | Organization | [facility] | | | and [...] Team Providers + +------+ + | Care Psychologist Military Personnel Name | Role | Phone | + +------+ + | Lance Pandya DO | PCP | | + +------+ + Reason for Visit + + + | Reason | Comments | + + + | Follow-up | | + + + Encounter Details +--------+---------+ + + + | Date | Type | Department | Care Team | Description | +--------+---------+ + + + | 06/16/ | Office | [facility] | Chana Luu, | Bilateral shoulder | | 2015 | Visit | CARDIOLOGY [address] | pain, unspecified | | | | [place], | [place], [place] | chronicity (Primary | | | | [place] [address] | [address] | Dx); Fatigue, | | | | [phone] | | unspecified type; | | | | | | NSTEMI (non-ST | | | | | | elevated myocardial | | | | | | infarction) ([facility]); | | | | | | Coronary artery | | | | | | disease involving | | | | | | wiyot coronary | | | | | | artery of wiyot | | | | | | heart without angina | | | | | | pectoris | +--------+---------+ + + + Social History [...] + + + | Blood Pressure | 135/80 | 06/17/2015 10:35 AM | | | | | PDT | | + + + + + | Pulse | 76 | 06/17/2015 10:35 AM | | | | | PDT | | + + + + + | Temperature | - | - | | + + + + + | Respiratory Rate | 18 | 06/17/2015 10:35 AM | | | | | PDT | | + + + + + | Oxygen Saturation | - | - | | + + + + + | Inhaled Oxygen | - | - | | | Concentration | | | | + + + + + | Weight | 53.1 kg (117 lb) | 06/17/2015 10:35 AM | | | | | PDT | | + + + + + | Height | 149.9 cm (4' 11") | 06/17/2015 10:35 AM | | | | | PDT | | + + + + + | Body Mass Index | 23.63 | 06/17/2015 10:35 AM | | | | | PDT [...] encounter Progress Notes Chana Luu MD - 06/17/2015 10:37 AM PDTFormatting of this note might be different fr om the original. PATIENT NAME: Cielo Bell : 1950: AGE: 65 y.o. PRIMARY CARE: Lance Pandya OUTPATIENT FOLLOW UP VISIT Date of Service: 06/17/2015 HISTORY OF PRESENT ILLNESS: Cielo Bell is a 65 y.o. female with a history of NSTEMI in December of 2014. She is being seen today for follow up. She was last seen by Dr Prado. She is now on continuous O2 She still needs to have surgery on her skull She has been having constant aching in her bilateral shoulders. This is not exertional and not at all similar to her previous cardiac symptoms She has not had any chest pain She is walking for exercise. MEDICAL, SURGICAL, AND PERSONAL HISTORY Past Medical, Surgical, Family, and Social History are reviewed in EPIC. CURRENT PROBLEMS Patient Active Problem List Diagnosis Smoking addiction Smoking addiction Smoking addiction Smoking addiction NSTEMI (non-ST elevated myocardial infarction) COPD (chronic obstructive pulmonary disease) PVD (peripheral vascular disease) H/O cerebral aneurysm repair GI bleed Cough due to bronchospasm CAD (coronary artery disease), wiyot coronary artery CURRENT MEDICATIONS Current Outpatient Prescriptions Medication Sig Dispense Refill albuterol-ipratropium (DUONEB) 2.5-0.5 mg/3 mL SOLN Take 3 mLs by nebulization 3 times daily. 360 mL 3 aspirin 81 mg chewable tablet Take 1 tablet by mouth Daily. 30 tablet atorvaSTATin (LIPITOR) 40 mg tablet Take 1 tablet by mouth nightly. 90 tablet 3 clopidogrel (PLAVIX) 75 mg tablet One a day till all are gone 30 tablet 11 famotidine (PEPCID) 20 mg tablet Take 1 tablet by mouth 2 times daily. 60 tablet 4 lisinopril (PRINIVIL,ZESTRIL) 2.5 MG tablet Take 1 tablet by mouth Daily. 90 tablet 3 metoprolol tartrate (LOPRESSOR) 25 mg tablet Take 1 tablet by mouth 2 times daily. 60 t ablet 11 nitroglycerin (NITROSTAT) 0.[address] 1 tablet under the tongue every 5 rosemarie silvina as needed for Chest pain. 100 tablet 12 spironolactone (ALDACTONE) 25 mg tablet Take 0.5 tablets by mouth Daily. 30 tablet 1 No current facility-administered medications for this visit. ALLERGIES Allergies Allergen Reactions Ciprofloxacin Nausea And Vomiting Codeine Nausea And Vomiting [place] Hives Povidone Iodine Hives Sulfa Antibiotics Other reaction(s): Erythema ROS No bleeding or bruising No pain on moving the arms OBJECTIVE: PHYSICAL EXAM BP 135/80 mmHg | Pulse 76 | Resp 18 | Ht 1.499 m (4' 11") | Wt 53.071 kg (117 lb) | BMI 23. 62 kg/m2 General appearance: no acute distress. Eyes: no icterus. Lids normal Mouth: no cyanosis. Neck: No lymphadenopathy in the neck or supraclavicular area. Good carotid upstroke. No bruits. No JVD Lungs: CTA Heart: normal sounds 1/6 murmur Abdomen: soft. Ext: No CCE in upper or lower extremities Neuro: Awake and oriented x3 LAB RESULTS: LIPID Lab Results Component Value Date CHOL 205* 12/28/2014 TRIG 143 12/28/2014 HDL 46 12/28/2014 LDL 130 12/28/2014 CHOLHDL 4.5 12/28/2014 CHEMISTRY Lab Results Component Value Date GLU 97 12/29/2014 NA 141 12/29/2014 K 3.7 12/29/2014 CL 110* 12/29/2014 CO2 24 12/29/2014 CALCIUM 8.5 12/29/2014 ALKPHOS 75 12/28/2014 AST 482* 12/28/2014 ALT 93* 12/28/2014 BILITOT 0.8 12/28/2014 CREA 0.81 12/29/2014 BUN 16 12/29/2014 HEMATOLOGY Lab Results Component Value Date WBC 11.1* 12/29/2014 HGB 11.8 12/29/2014 HCT 35.8 12/29/2014 PLT 181 12/29/2014 ASSESSMENT: Shoulder discomfort PLAN: Check labs 2 week Holiday from [place] - if she feels better bajwa to pravastatin Follow up in 4 months Electronically signed by: Chana Luu MD [facility] 06/17/2015 Portions of this chart may have been created with [employer] voice recognition software. Occasi onal wrong-word or [...] | + +--------+ + + + | TSH | Routin | 06/17/2015 | Bilateral shoulder | Results for this | | | e | 11:11 AM | pain, unspecified | procedure are in the | | | | PDT | chronicity Fatigue, | results section. | | | | | unspecified type | | + +--------+ + + + documented in this encounter Results TSH (06/17/2015 11:11 AM PDT) + + + + + + | Component | Value | Ref Range | Performed | Pathologist | | | | | At | Signature | + + + + + + | TSH | 0.59Comment: All TSH | 0.34 - 5.60 | [facility] | | | | samples are screened | uIU/mL | [facility] | | | | using a 2nd Generation | | MEDICAL | | | | test, and are reflexed | | CENTER - | | | | to a 3rd Generation test | | LABORATORY | | | | if indicated. | | | | + + + + + + + + | Specimen | + + | Blood | + + + + + + + | Performing | Address | City/State/Zipcode | Phone Number | | Organization | | | | + + + + + | [facility] | [address] | [place] | [phone] | | [facility] | | [address] | | | - LABORATORY | | | | + + + + + CBC no Differential (06/17/2015 11:11 AM PDT) + + + + + + | Component | Value | Ref Range | Performed | Pathologist | | | | | At | Signature | + + + + + + | White Blood | 9.2 | 4.0 - 11.0 K/uL | [facility] | | | Cells | | | [facility] | | | | | | MEDICAL | | | | | | CENTER - | | | | | | LABORATORY | | + + + + + + | Red Blood | 5.06 | 3.70 - 5.20 | [facility] | | | Cells | | M/uL | [facility] | | | | | | MEDICAL | | | | | | CENTER - | | | | | | LABORATORY | | + + + + + + | Hemoglobin | 15.9 | 11.5 - 16.0 | [facility] | | | | | g/dL | [facility] | | | | | | MEDICAL | | | | | | CENTER - | | | | | | LABORATORY | | + + + + + + | Hematocrit | 47.2 (H) | 34.0 - 47.0 % | [facility] | | | | | | [facility] | | | | | | MEDICAL | | | | | | CENTER - | | | | | | LABORATORY | | + + + + + + | MCV | 93.2 | 83.0 - 101.0 fL | [facility] | | | | | | [facility] | | | | | | MEDICAL | | | | | | CENTER - | | | | | | LABORATORY | | + + + + + + | MCH | 31.4 | 28.0 - 35.0 pg | [facility] | | | | | | [facility] | | | | | | MEDICAL | | | | | | CENTER - | | | | | | LABORATORY | | + + + + + + | MCHC | 33.7 | 32.0 - 36.0 | [facility] | | | | | g/dL | [facility] | | | | | | MEDICAL | | | | | | CENTER - | | | | | | LABORATORY | | + + + + + + | RDW-CV | 14.3 | <15.0 % | [facility] | | | | | | [facility] | | | | | | MEDICAL | | | | | | CENTER - | | | | | | LABORATORY | | + + + + + + | Platelet | 250 | 140 - 440 K/uL | [facility] | | | Count | | | [facility] | | | | | | MEDICAL | | | | | | CENTER - | | | | | | LABORATORY | | + + + + + + | MPV | 8.8 | fL | [facility] | | | | | | [facility] | | | | | | MEDICAL | | | | | | CENTER - | | | | | | LABORATORY | | + + + + + + + + | Specimen | + + | Blood | + + + + + + + | Performing | Address | City/State/Zipcode | Phone Number | | Organization | | | | + + + + + | [facility] | [address] | [place] | [phone] | | [facility] | | [address] | | | - LABORATORY | | | | + + + + + CK Total (06/17/2015 11:11 AM PDT) + +-------+ + + + | Component | Value | Ref Range | Performed | Pathologist | | | | | At | Signature | + +-------+ + + + | CK TOTAL | 74 | 22 - 269 U/L | [facility] | | | | | | [facility] | | | | | | MEDICAL | | | | | | CENTER - | | | | | | LABORATORY | | + +-------+ + + + + + | Specimen | + + | Blood | + + + + + + + | Performing | Address | City/State/Zipcode | Phone Number | | Organization | | | | + + + + + | [facility] | [address] | [place] | [phone] | | [facility] | | [address] | | | - LABORATORY | | | | + + + + + Basic Metabolic Panel (06/17/2015 11:11 AM PDT) + + + + + + | Component | Value | Ref Range | Performed | Pathologist | | | | | At | Signature | + + + + + + | Na | 141 | 136 - 149 | [facility] | | | | | mmol/L | [facility] | | | | | | MEDICAL | | | | | | CENTER - | | | | | | LABORATORY | | + + + + + + | K | 4.1 | 3.5 - 5.1 | [facility] | | | | | mmol/L | [facility] | | | | | | MEDICAL | | | | | | CENTER - | | | | | | LABORATORY | | + + + + + + | Cl | 105 | 98 - 109 mmol/L | [facility] | | | | | | [facility] | | | | | | MEDICAL | | | | | | CENTER - | | | | | | LABORATORY | | + + + + + + | CO2 | 25 | 24 - 31 mmol/L | [facility] | | | | | | [facility] | | | | | | MEDICAL | | | | | | CENTER - | | | | | | LABORATORY | | + + + + + + | Anion Gap | 11 | 3 - 16 mmol/L | [facility] | | | | | | [facility] | | | | | | MEDICAL | | | | | | CENTER - | | | | | | LABORATORY | | + + + + + + | Glucose | 92 | 70 - 109 mg/dL | [facility] | | | | | | [facility] | | | | | | MEDICAL | | | | | | CENTER - | | | | | | LABORATORY | | + + + + + + | BUN | 10 | 7 - 18 mg/dL | [facility] | | | | | | [facility] | | | | | | MEDICAL | | | | | | CENTER - | | | | | | LABORATORY | | + + + + + + | Creatinine | 0.85 | 0.60 - 1.30 | [facility] | | | | | mg/dL | [facility] | | | | | | MEDICAL | | | | | | CENTER - | | | | | | LABORATORY | | + + + + + + | eGFR, | >60Comment: GLOMERULAR | >=60 | [facility] | | | non- | FILTRATION | mL/min/1.73m2 | [facility] | | | [place] | RATE,ESTIMATED | | MEDICAL | | | | mL/min/1.45a2Dzpz than | | CENTER - | | | | 60 Chronic kidney | | LABORATORY | | | | disease,if found over a | | | | | | 3-month period.Less than | | | | | | 15 Kidney failureFor | | | | | | | | | | | | Americans,multiply the | | | | | | calculated GFR by 1.21. | | | | | | | | | | + + + + + + | Calcium | 9.4 | 8.3 - 10.5 | [facility] | | | | | mg/dL | [facility] | | | | | | MEDICAL | | | | | | CENTER - | | | | | | LABORATORY | | + + + + + + | BUN/Creatin | 11.8 | | [facility] | | | ine Ratio | | | [facility] | | | | | | MEDICAL | | | | | | CENTER - | | | | | | LABORATORY | | + + + + + + + + | Specimen | + + | Blood | + + + + + + + | Performing | Address | City/State/Zipcode | Phone Number | | Organization | | | | + + + + + | [facility] | [address] | [place] | [phone] | | [facility] | | [address] | | | - LABORATORY | | | | + + + + + documented in this encounter Visit Diagnoses + + | Diagnosis | + + | Bilateral shoulder pain, unspecified chronicity - Primary | + + | Fatigue, unspecified type | + + | NSTEMI (non-ST elevated myocardial infarction) (HCC) Acute myocardial infarction, | | subendocardial infarction, episode of care unspecified | + + | Coronary artery disease involving wiyot coronary artery of wiyot heart without | | angina pectoris | + + documented in this encounter
--- OUTSIDE RECORDS SUMMARY | ~2019-10-22 | XMS | Encounter Summary ---
Demographics + + + | Address | [address] | | | [place] [address] | + + + | Home Phone | | + + + | Preferred Language | Unknown | + + + | Marital Status | | + + + | Restoration Affiliation | MET | + + + [...] Team Providers + +------+ + | Care Nursing Agency Manager Name | Role | Phone | + +------+ + | Mary Vazquez PA-C | PCP | | + +------+ + Encounter Details +--------+--------+ + + + | Date | Type | Department | Care Team | Description | +--------+--------+ + + + | 07/28/ | Travel | | | | | [...]
--- OUTSIDE RECORDS SUMMARY | ~2019-10-22 | XMS | Encounter Summary ---
Demographics + + + | Address | [address] | | | [place] [address] | + + + | Home Phone | | + + + | Preferred Language | Unknown | + + + | Marital Status | | + + + | Rastafari Affiliation | MET | + + + | Race | White | + + + | Ethnic Group | Not or | + + + Author + + + | Author | [facility] | + + + | Organization | [facility] | + + + | Address [...] Team Providers + +------+ + | Care Ground Worker Name | Role | Phone | [...] | | | | | | [place] [address] | | | +--------+ + + + [...]
--- OUTSIDE RECORDS SUMMARY | ~2019-10-22 | XMS | Encounter Summary ---
Demographics + + + | Address | [address] | | | [place] [address] | + + + | Home Phone | | + + + | Preferred Language | Unknown | + + + | Marital Status | | + + + | Temple Affiliation | MET | + + + | Race | White | + + + | Ethnic Group | Not or | + + + Author + + + | Author | [facility] | + + + | Organization | [facility] | + + + | Address [...] Team Providers + +------+ + | Care Photonics Technician Name | Role | Phone | + [...] Description | +--------+---------+ + + + | 04/29/ | Office | Neurosurgery at | Magnolia Diego MD | Communicating | | 2008 | Visit | [facility] [address] | [address] | Hydrocephalus; [facility] | | | | [facility] | [place], [place] | (Subarachnoid | | | | [facility], | [address] | Hemorrhage) ([facility]) | | | | [facility] | [phone] | | | | | floor [place], [place] | | | | | | [address] | | | | | | [phone] | | | +--------+---------+ + + + [...] documented as of this encounter Progress Notes Magnolia Diego MD - 04/29/2008 2:11 PM PDT58 year old lady with history of clipping aneursm and vp product marketing shunt placement for hydrocephalus is back to clinic for followup. She is complaining of headache and N/V. Her abdominal and neck incisions are red and not lo oking good. We will tap shunt to make sure CSF is clean. They agreed with this plan. 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
--- OUTSIDE RECORDS SUMMARY | ~2019-10-22 | XMS | Encounter Summary ---
Demographics + + + | Address | [address] | | | [place] [address] | + + + | Home Phone [...] Team Providers + +------+ + | Care Stock Mixer Name | Role | Phone | + [...] Description | +--------+---------+ + + + | 05/08/ | Surgery | 6A Intra Op [id number] | Magnolia Diego MD | RIGHT SYNTHETIC | | 2019 | | [facility] | [address] | CRANIOPLASTY; | | | | Rd [facility] | [place], [place] | | | | | Hospital Admitting | [address] | | | | | Desk Located on the | [phone] | | | | | 9th floor | | | | | | [place], [place] | | | | | | [address] | | | +--------+---------+ + + + [...] + + + | Blood Pressure | 116/59 | 05/10/2018 9:00 AM | | | | | PDT | | + + + + + | Pulse | 97 | 05/10/2018 9:00 AM | | | | | PDT | | + + + + + | Temperature | 36.9 C (98.4 F) | 05/10/2018 7:47 AM | | | | | PDT | | + + + + + | Respiratory Rate | 18 | 05/10/2018 7:47 AM | | | | | PDT | | + + + + + | Oxygen Saturation | 95% | 05/10/2018 7:47 AM | | | | | PDT | | + + + + + | Inhaled Oxygen | - | - | | | Concentration | | | | + + + + + | Weight | 52.8 kg (116 lb 6.5 | 05/08/2018 1:00 PM | | | | oz) | PDT | | + + + + + | Height | 149.9 cm (4' 11") | 05/08/2018 7:20 AM | | | | | PDT | | + + + + + | Body Mass Index | 23.51 | 05/08/2018 7:20 AM | | | | | PDT | | + + + + + documented in this encounter Functional Status + + + + | Functional Status | Response | Date of Assessment | + + + + | Because of a physical, mental, or emotional | No | 05/08/2018 | | condition, do you have serious difficulty | | | | doing errands alone such as visiting the | | | | doctor? | | | + + + + + + + + | Cognitive Status | Response | Date of Assessment | + + + + | Because of a physical, mental, or emotional | No | 05/08/2018 | | condition, do you have serious difficulty | | | | concentrating, remembering, or making | | | | decisions? (5 years old or older) | | | + + + + documented as of this encounter Discharge Summaries Marni Manning PA-C - 05/10/2018 8:54 AM PDTFormatting of this note might be differe nt from the original. NEUROSURGERY DISCHARGE SUMMARY: Patient: Gloria Bell Admission Date: 05/08/2018 Discharge Date: 05/10/2018 Attending Physician: Magnolia Diego MD PCP: Mary Vazquez PA-C Service: [facility] Neurosurgery Diagnoses Principal Final Diagnosis: Right frontotemporal acquired skull defect Procedures 05/09 Right frontotemporal synthetic custom cranioplasty, greater than 5 cm. Brief Hospital Course Ms. 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 The patient was lost to followup for many years and then in presented with resorption of her bone flap and loose hardware. The patient underwent a s ynthetic custom cranioplasty at that time. The patient re-presented in November 2017, she wa s noted to have right sided wound dehiscence and epidural MSSA wound infection for which she underwent explant of right frontal VPS and right cranioplasty. She was discharged home with a PICC and received IV ceftriaxone for 6 weeks. She represented on 05/09 and is now status p ost a right synthetic cranioplasty with flap placement per ENT. The inpatient stay related to this procedure(s) took an uncomplicated perioperative course and you were followed closely by the attending providers, resident providers, and medical/nu rsing staff. Post operatively, you were admitted to the hospital for convalescent care. Pain control was managed with medication. You made appropriate gains toward activity and functio nal goals while in the hospital. You were able to walk without assistance. While on the hospital floor, you were able to eat and drink enough to maintain nutrition an d hydration. The surgical wound remained clean, dry, and intact without signs concerning fo r infection. You were felt to be ready for discharge home. Diet Regular Regular diet- There are no [...] post operative recovery and helps decrease pain. Condition on Discharge Good PCP:Mary Vazquez PA-C [...] changes Medication List START taking these medications acetaminophen 325 mg Tab Commonly known as: TYLENOL Take 1-2 tablets by mouth every four hours as needed. Indications: Pain ascorbic acid (vitamin C) 500 mg Tab Take 1 tablet by mouth two times daily. polyethylene glycol 17 gram Pwpk Commonly known as: MIRALAX Mix 1 packet and take orally three times daily as needed (1st line - for no BM for 2 days). Indications: constipation zinc sulfate 110 mg total salt (25 mg elemental) Tab Commonly known as: ORAZINC Take 1 tablet by mouth once daily. CHANGE how you take these medications aspirin EC 81 mg Tbec Take 1 tablet by mouth once daily. Do not restart aspirin until 2 weeks after surgery-05/24 Start taking on: 05/24/2018 What changed: additional instructions These instructions start on 05/24/2018. If you are unsure what to do until then, ask your doctor or other care provider. CONTINUE taking these medications atorvastatin 80 mg Tab Commonly known as: LIPITOR Take 80 mg by mouth once daily. ipratropium-albuterol 0.5 mg-3 mg(2.5 mg base)/3 mL Nebu Commonly known as: DUO-NEB Inhale 3 mL two times daily. lisinopril 5 mg Tab Commonly known as: PRINIVIL Take 5 mg by mouth once daily. metoprolol succinate 50 mg Tb24 Commonly known as: TOPROL-XL Take 50 mg by mouth once daily. nitroglycerin 0.4 mg Subl Commonly known as: NITROSTAT Place 0.4 mg under tongue every five minutes as needed for chest pain. Place under tongue a nd allow to dissolve. Administer every 5 minutes, max of 3 doses in 15 minutes. spironolactone 25 mg Tab Commonly known as: ALDACTONE Take 25 mg by mouth once daily. Wound Care: 1) Keep your incision site [...] though it may it ch. 5) Your sutures are NON absorbable and need to be removed in 2-3 weeks. Clinic appointment scheduled on 05/26. Discussed with patient that if she is unable to attend follow up d/t dist ance local provider may take sutures out; however, if there are surgical site concerns she m ust return to clinic. 6) Monitor surgical site for evidence of warmth, redness, and drainage. Special Instructions/Tests: -Abstain from smoking -Sutures to be removed in 2-3 weeks Condition On Discharge: Good Vital Signs at discharge as appropriate: BP: 112/54 (05/10/18 0747) Pulse: 94 (05/10/18 0747) Resp: 18 ( 0747) Weight: 52.8 kg (116 lb 6.5 oz) (05/08/18 1300) Alert, conversant, answering questions approprietly. Oriented to self, place, time, situati on No evidence of aphasia or dysarthria Following commands briskly PERRL, EOMI. Mild R periorbital swelling FS, TML, V1-V3 Sensory intact Symmetric shoulder shrug Delt (C5,6) Bi (C5) Tri (C7) WE (C6) FF (C8) IO (C8,T1) HF (L3) KE (L3,4) DF (L4) EHL (L5) PF (S1) Left 5 5 5 5 5 5 5 5 5 5 5 Right 5 5 5 5 5 5 5 5 5 5 5 No Pronator Drift SILT Incision: intact. Nylons in place. No erythema, drainage. Mild fluctuance noted. Discharge Patient To: Home Does patient have a planned readmission: No Discharge Summary Completed?: Yes. 05/10/2018 Discharging Provider: Marni Manning PA-C Date Completed: 05/10/2018 Time Completed: 8:55 AM Discharging Attending: MD Marni Woods PA-C [facility] [address] [id number] [place] [address] documented in t his encounter Discharge Instructions AttachmentsThe following attachments cannot be sent through Care Everywhere.Smoking Cessati on: Health Benefits: General Info ([place]ran)documented in this encounter Medications at Time of Discharge [...] + + + +---------+ + + | ascorbic acid | Take 1 tablet by | 62 | 0 | 05/11/19 | | | (vitamin C) 500 mg | mouth two times | tablet | | 19 | 9 | | oral tablet | daily. | | | | | + + + +---------+ + + | zinc sulfate 110 | Take 1 tablet by | 30 | 0 | 05/11/19 | | | mg total salt (25 mg | mouth once daily. | tablet | | 19 | 9 | | elemental) oral | | | | | | | tablet | | | | | | + + + +---------+ + + documented as of this encounter Progress Notes Amaya Norton, ACNP - 05/09/2018 7:15 AM PDTFormatting of this note might be different f rom the original. . Neuroscience Intensive Care Unit Team Progress Note NSICU ASSIGNED #[id number] ICU Admission Reason Most Recent Value ICU Admission reason s/p cranioplasty with flap placement filed at 05/08/2018 0956 Admission dx: Other acquired deformity of head Infection and inflammatory reaction due to other internal prosthetic devices, implants and grafts, subsequent encounter Days in ICU Days in Hospital Abbreviated HPI / Daily Assessment Gloria Bell is a 68 year old female with CAD, NSTEMI (01/05) s/p stent in the mid LAD o n ASA, HTN, tobacco dependence and COPD. 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 In December of 2014 she was noted to have a right crani screw exp osed with significant sunken cranial defect but 2/2 to her recent NSTEMI, stent placement an d DAPT she was deferred for surgery. In October of 2015 she had an uncomplicated right syn thetic cranioplasty. In November of 2017 she was noted right sided wound dehiscence and epidu ral MSSA wound infection for which she underwent explant of right frontal VPS and right cran ioplasty. She was discharged home with a PICC and received IV ceftriaxone for 6 weeks. She r eturns today for right synthetic cranioplasty with flap placement per ENT. Admitted to NSICU postop for neuro monitoring. 24 hour events Admit Postop CTH LR bolus for tachycardia Aleja dc'd Active Diagnosis with Assessment & Plan Priority [...] and received IV ceftriaxone for 6 weeks. Current Assessment & Plan -admitted s/p right synthetic cranioplasty -f/up postop CTH; stable with no acute intracranial abnormality -IMC status; q4h NC and VS with plan per NSGY and family to go home tomorrow 05/10/18 -Crani icision care per NSICU protocol -Vitamin C and Zinc per crani wound care set implemented to aid in wound care -periop abx x24 hours; Vancomycin -SBP goal <160 -ICU goals; normonatremia and euvolemia -Stat CTH for any neurological decline -05/09; PT to eval and treat today for discharge planning > f/up recs. 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 with several focal areas of dyskinesis RV normal size and function Mild Aortic Regurgitation Current Assessment & Plan -CAD, NSTEMI (12/2014) s/p mid LAD stent -ASA 81mg daily>holding>f/up with NSGY on resumption plan -continue spirolactone 25mg daily -continue Metoprolol ER 50mg daily -continue Atorvastatin 80mg daily -continue Lisinopril 5mg daily -ADAT to heart healthy, 2g Na+ diet Respiratory/Chest Chronic obstructive pulmonary disease (HCC) Yes Overview ICD10 Current Assessment & Plan -resume home inhalers -prn oxygen and continuous pulse oximetry to maintain sats >88% Digestive PONV (postoperative nausea and vomiting) Unknown Current Assessment & Plan -prn Zofran and compazine -tolerating PO> Dc MIVF Other History of non-ST elevation myocardial infarction (NSTEMI) Yes Overview Overview: Cath 12/28/14: 100% LAD - stented with bare metal due to history of cerebral aneurysm. Norm al LM; normal LCX; 20-30% RCA. Elevated EDP. Echo.12/28/14. LVEF.54% Current Assessment & Plan -see ischemic cardiomyopathy plan above Tobacco dependence Yes Current Assessment & Plan -pt reports that she has not smoked tobacco in the "last 3 weeks" - smoking cessation education in regards to delayed wound healing etc. per Provider and RN at BS> pt verbalized understanding - nicotine replacement therapy scheduled and prn Acute postoperative pain Unknown Current Assessment & Plan -POD #1; pt denies pain> dc'd IV hydromorphone -Multimodal postop pain regimen -PRN APAP -PRN oxycodone History of chronic respiratory failure Current Assessment & Plan -reports she uses home oxygen; 4L but did not travel here to [facility] with it -stable on 4L NC -RT and CM consulted to assist with travel needs in regards to Oxygen> see note Code Status Code Status Full Code The Advanced Care Note for this patient can be found under the notes tab in chart review. Constitutional: She appears well-developed and well-nourished not diaphoretic no distress HENT: Right crani incision MARILYN; well approx with genoveva, no erythema, no drng, moderate am ount swelling into right eye Neck: normal range of motion neck supple Cardiovascular: normal rate, regular rhythm, normal heart sounds and intact distal pulses n o murmur heard.Exam reveals no friction rub and no gallop. Pulmonary: effort normal. She has no wheezesno rales No respiratory distress. Diminished th roughout Abdominal: Abdomen is soft. There is no tenderness She exhibits no distention. bowel soun ds are normal. Musculoskeletal: She exhibits no tenderness and no edema. Skin: Skin is warm and dry. no rash noted. No erythema. No pallor. Psychiatric: She has a normal mood and affect. Physical exam Comments A,A, Ox4, speech clear and fluent, face symmetric upon activation, PERRL, EOM's i ntact, SILT, no dysmetria, no drift, FCx5 5/5 strength . NSICU treatment team members Provider Role Specialty Ipt Critical Care Nsicu #[id number] Treatment Team Ipt Neurosurgery #[id number] Treatment Team Neurological Surgery Patient Lines/Drains/Airways Status Active Lines, Drains and Airways Name: Placement date: Placement time: Site: Days: Peripheral IV Left Forearm 18 g 05/08/18 0731 Forearm less than 1 Peripheral IV Left Dorsal Hand 16 g Hand Wound Left thumb Other (Comment) 12/03/17 220 thumb 155 Wound Midline coccyx Pressure ulcer 12/03/17 2200 coccyx 155 Incision Right head 12/05/172126 153 Incision Right adb- upper quadrant 12/05/17 154 Incision Right head- frontal 05/08/18 less than 1 Urethral Catheter Temp-probe Goins 16 Fr. 05/08/18 0845 Temp-probe Goins less than 1 Arterial Line Standard Left Radial 20g 05/08/18 1010 Radial less than 1 Quality section A-Line necessity reviewed: dc'd Goins necessity reviewed: dc'd FAST HUG Feeding: regular Analgesia: MM Sedation: na Thromboprophylaxis: SCDs Head of Bed: Head of Bed >30 degrees Ulcer Prophylaxis: not clinically indicated Glycemic Control: not indicated I have spent a total of 48 Minutes independently in the direct care and management of th is patient.Time is independent of any time spent teaching or performing any separately billa ble procedures. I reviewed the documented findings, all data and the recent imaging availabl e. Date of Service: 05/09/2018 KOKO KNIGHT EPIC DEPARTMENT: ANE ICU NEURO Place of Service:- Inpatient CSN: [id number] Suggested Modifier: None Suggested CPT: TO TANK CAR INSPECTOR KOKO Hoang Author:KOKO KNIGHT [address] [id number] signed by KOKO Hoang at 05/26/2018 1:38 AM Jose M Najera MD,PhD - 05/09/2018 5:35 AM PDTFormatting of this note might be diffe rent from the original. NEUROSURGERY PROGRESS NOTE INTERVAL UPDATE: S/p synthetic cranioplasty; no ENT flap needed OBJECTIVE: Last Vitals: BP 101/53 | Pulse 94 | Temp 37.6 C (99.7 F) | Resp (!) 25 | Ht 1.499 m (4' 11") | Wt 52.8 kg (116 lb 6.5 oz) | SpO2 92% | BMI 23.51 kg/m | BSA 1.48 m 24 Hour Vital Min/Max: Systolic (24hrs), Av , Min:84 , Max:129 Diastolic (24hrs), Av, Min:35, Max:79 Pulse Min: 65 Max: 116 Temp Min: 35.9 C (96.6 F) Max: 38.2 C (100.8 F) Resp Min: 12 Max: 29 SpO2 Min: 90 % Max: 97 % Intake/Output Summary (Last 24 hours) at 05/09/18 0535 Last data filed at 05/09/18 0400 Gross per 24 hour Intake 2065.33 ml Output 1265 ml Net 800.33 ml Labs: Lab Results Component Value Date WBC 14.69 05/09/2018 HB 11.7 05/09/2018 HCT 35.5 05/09/2018 PLT 221 05/09/2018 MCV 93.7 05/09/2018 RDW 46.3 05/09/2018 Lab Results Component Value Date NA 137 05/09/2018 K 4.0 05/09/2018 CL 109 05/09/2018 BICARB 21 05/09/2018 BUN 13 05/09/2018 EGFRAFRICAN >60 05/09/2018 EGFRNONAFR >60 05/09/2018 CR 0.68 05/09/2018 GLU 105 05/09/2018 CA 7.8 05/09/2018 ANIONGAP 7 05/09/2018 ANIONALBCOR 9 05/09/2018 Lab Results Component Value Date INRPT 1.01 05/08/2018 NA Date Value Ref Range Status 05/09/2018 137 136 - 145 mmol/L Final 05/08/2018 137 136 - 145 mmol/L Final 05/08/2018 136 134 - 143 mmol/L Final NEUROLOGICAL EXAM: Awake, alert, oriented to self, time, place, situation Following commands briskly PERRL EOMI Face symmetric Tongue midline Motor: No pronator drift Upper Ext Delt Bi Tri WF WE L 5 5 5 5 5 R 5 5 5 5 5 Lower Ext Hfl Kfl Kex APF ADF L 5 5 5 5 5 R 5 5 5 5 5 SILT Incision C/D/I ASSESSMENT/PLAN: 68 y.o. female HD#1 with CAD, SD s/p stent on ASA/plavix, HTN, previous HH4F3 SAH due to a comm aneurysm rupture in 2007, post hemorrhagic hydrocephalus with RIGHT VPS medium pressure , explant of shunt and synthetic cranioplasty due to wound dehiscence, MSSA infection who is not s/p synthetic cranioplasty 05/08/18. Neurologically intact. Transfer to cooper JOSE M EATON MD,PhD Resident Neurological Surgery Pgr. [id number] Associated attestation - Casey Hewitt MD - 05/09/2018 7:48 AM PDTI have seen and examine d the patient. I agree with the resident's documentation and have documented any additions or exceptions. MD Mauricio Capps Shawn, RN - 05/08/2018 12:12 PM PDTMeets Phase I Discharge Criteria (Stable Fo r Transfer): Major deviations/events or pertinent findings of eddie-operative stay: Anticipated post-op needs/devices/follow up: Wound/incision care, pain control, neuro monit oring. * No Diagnosis Codes entered * Surgical Procedure Planned - Actual Procedure Performed: Procedure(s) with comments: CRANIOPLASTY WITH CUSTOM IMPLANT - RIGHT SYNTHETIC CRANIOPLASTY; RADIAL FOREARM FREE FLAP WITH SPLIT THICKNESS SKIN GRAFT - SCALP CLOSURE. Anesthesia: General Length of procedure: In Room/Out of Room: 2 Hr 50 Min 54 Sec Surgeon(s) and Role: Panel 1: * Magnolia Diego MD - Primary Panel 2: * Ata White MD - Primary * Abel rPatt III, MD - Fellow OR positioning comments: Neuro: POSS Sedation Level: 3 Last pain medication given: Pain medication totals: none postop. Additional pain medication information: see MAR. Functional Epidural: No SHAMPOOER: No Respiratory: RR: 15 , O2 Sat: 93 % , O2 Delivery: Nasal cannula Breath Sounds: Ex DARIEN: LLL: RUL: RLL: MELISSA No Comment: Cardiac: BP: 116/61 HR: 67 GI: Nausea/Vomiting Status: No Signs/Symptoms: Interventions: Assessment: Comments: : Last void: goins Contact Name: Juan (sister in law) Contact Number: [phone] Family contacted: Yes Comment:Juan updated via phone. Belongings:with family Giovanni Paulino MD - 05/08/2018 11:54 AM PDT Neurosurgery Post-Op Check 05/08/2018 11:55 AM S: Pt examined in PACU Pt is s/p R synth cranioplasty Pt denies pain O: Last 24 hour min/max Temp: 35.9 C (96.6 F) Temp Min: 35.9 C (96.6 F) Max: 36.5 C (97.7 F) Pulse: 67 Pulse Min: 66 Max: 98 Resp: 20 Resp Min: 15 Max: 20 BP: 129/79 BP Min: 101/35 Max: 129/79 SpO2: 90 % SpO2 Min: 90 % Max: 97 % Body mass index is 22.4 kg/m. Eyes open spont, oriented, participates in exam Pupils: PERRL 2mm bl, EOMI, FS, protecting airway Lifts arms and wiggles feet symmetrically to command Incision cdi, flat Giovanni Vincent MD PGY-5 Neurological Surgery Pager [phone] documented in this enco unter H&P Notes Susy Vallecillo MD - 05/08/2018 1:14 PM PDTFormatting of this note might be different fr om the original. . Neuroscience Intensive Care Unit Attending H&P Note Attending Pager #[phone] ICU Admission Reason Most Recent Value ICU Admission reason s/p cranioplasty with flap placement filed at 05/08/2018 0956 Days in ICU Days in Hospital HPI Gloria Bell is a 68 year old female with CAD, NSTEMI (01/05) s/p stent in the mid LAD o n ASA, HTN, tobacco dependence and COPD. 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 In December of 2014 she was noted to have a right crani screw exp osed with significant sunken cranial defect but 2/2 to her recent NSTEMI, stent placement an d DAPT she was deferred for surgery. In October of 2015 she had an uncomplicated right syn thetic cranioplasty. In November of 2017 she was noted right sided wound dehiscence and epidu ral MSSA wound infection for which she underwent explant of right frontal VPS and right cran ioplasty. She was discharged home with a PICC and received IV ceftriaxone for 6 weeks. She r eturns today for right synthetic cranioplasty. Admitted to NSICU postop for neuro monitoring . Procedural details INTRAOPERATIVE COURSE: LINES, DRAINS & AIRWAY: LINES: PIV x2, arterial line DRAINS: none AIRWAY: easy OR Events: Events or complications: none apparent Cerebral artery clamp time, if applicable: n/a EBL: 50mL Crystalloid: 1L Blood: n/a Urine Output: 600 mL Medical Decision Making 68 yo F with right frontotemporal skull defect following explant of synthetic cranioplasty and VPS due to dehiscence and MSSA infection admitted to NSICU today following synthetic cr anioplasty with split thickness skin graft. No evidence of infection or CSF was encountered intra-operatively. She was treated with > 6 weeks of ceftriaxone over the interval prior to today's procedure. Her original injury was ruptured aneurysm clipping in 2007. Post-op head CT shows a tiny amount of pneumocephalus under the cranioplasty site. Comorbid conditions in clude ongoing tobacco abuse, CAD s/p stenting and medical management, HTN, chronic systolic and diastolic heart failure (EF 35 - 40% in August 2017), currently compensated and COPD. Plan: S/p synthetic cranioplasty: at risk for ICH, extra-axial hematoma, seizure, wound dehiscenc e. Frequent neuro checks, perioperative antibiotics. HTN; CAD; chronic systolic and diastolic heart failure, currently compensated: holding home ASA until NSGY comfortable with restarting. Continue home lisinopril, metoprolol and spiron olactone. Not on loop diuretic chronically. Remove arterial line. COPD: continue home nebulizers Bedside swallow eval, heart healthy diet. Nicotine dependence with associated increased risk for SSI and graft failure: tobacco cessa tion counseling, nicotine patch PRN. SCDs for DVT PPX. Constitutional: She appears well-developed and well-nourished Cardiovascular: normal rate and regular rhythm Pulmonary: effort normal. vitals and nursing note reviewed. Physical exam Her GCS eye subscore is 4 (Eyes open spontaneously). GCS verbal subscore is 5 (Fully orient ed verbal response). GCS motor subscore is 6 (Obeys commands). GCS Score is 15. She has no rmal language, intact cranial nerves and normal and symmetric strength in all extremities.Sh e is drowsy She is oriented. Hospital Problems Priority POA Head/Neck Skull defect Yes Cardiovascular HTN (hypertension) Yes Coronary arteriosclerosis in [place] artery Yes Ischemic cardiomyopathy Unknown Respiratory/Chest Chronic obstructive pulmonary disease (HCC) Yes Digestive PONV (postoperative nausea and vomiting) Unknown Other History of non-ST elevation myocardial infarction (NSTEMI) Yes Tobacco dependence Yes Acute postoperative pain Unknown NSICU treatment team members Provider Role Specialty Ipt Critical Care Nsicu #[id number] Treatment Team Ipt Neurosurgery #[id number] Treatment Team Neurological Surgery Code Status Code Status Full Code The Advanced Care Note for this patient can be found under the notes tab in chart review. Quality section A-Line necessity reviewed: Plan to DC today Goins necessity reviewed: Plan to DC today I have spent a total of 39 minutes in the direct care and management of this patient indepe ndent of any time spent teaching or performing any separately billable procedures. I reviewe d the documented findings, all data and the recent imaging available. Seen with PA/PATIENT SERVICES TECHNICIAN Amaya Norton. Please see their note for details. I reviewed the documented findings, all data and the recent imaging available. Date of Service: 05/08/2018 Author:SSUY VALLECILLO MD [place] [id number] Amaya Pimentel [facility] - 05/08/2018 1:00 PM PDT . Neuroscience Intensive Care Unit Team H&P Note NSICU ASSIGNED #[id number] 1 Days in ICU 1 Days in Hospital ICU Admission Reason Most Recent Value ICU Admission reason s/p cranioplasty with flap placement filed at 05/08/2018 0956 Admitting Provider: MAGNOLIA DIEGO Gloria Bell is a 68 year old female with CAD, NSTEMI (01/05) s/p stent in the mid LAD o n ASA, HTN, tobacco dependence and COPD. 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 In December of 2014 she was noted to have a right crani screw exp osed with significant sunken cranial defect but 2/2 to her recent NSTEMI, stent placement an d DAPT she was deferred for surgery. In October of 2015 she had an uncomplicated right syn thetic cranioplasty. In November of 2017 she was noted right sided wound dehiscence and epidu ral MSSA wound infection for which she underwent explant of right frontal VPS and right cran ioplasty. She was discharged home with a PICC and received IV ceftriaxone for 6 weeks. She r eturns today for right synthetic cranioplasty. Admitted to NSICU postop for neuro monitoring . Procedural details INTRAOPERATIVE COURSE: LINES, DRAINS & AIRWAY: LINES: PIV x2, arterial line DRAINS: none AIRWAY: easy OR Events: Events or complications: none apparent Cerebral artery clamp time, if applicable: n/a EBL: 50mL Crystalloid: 1L Blood: n/a Urine Output: 600 mL Significant Event No data filed Active Diagnosis [...] and received IV ceftriaxone for 6 weeks. Current Assessment & Plan -admitted s/p right synthetic cranioplasty -f/up postop CTH -q1h NC and VS -Crani icision care per NSICU protocol -periop abx x24 hours -SBP goal <160 -ICU goals; normonatremia and euvolemia -Stat CTH for any neurological decline Cardiovascular HTN (hypertension) Yes Overview ICD10 Current Assessment & Plan -SBP goal <160 -prn IV hydralazine -resume home antiHTN when hemodynamically stable and as approp Coronary arteriosclerosis in [place] artery Yes Current Assessment & Plan -see ischemic cardiomyopathy plan above Ischemic cardiomyopathy Unknown Overview TTE on 05/09/2017 EF 35-40% 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 with several focal areas of dyskinesis RV normal size and function Mild Aortic Regurgitation Current Assessment & Plan -CAD, NSTEMI (12/2014) s/p mid LAD stent -ASA 81mg daily>holding>f/up with NSGY on resumption plan -Mineralocorticoid receptor antagonists; spirolactone 25mg daily > resume as approp -Beta-blockade with Metoprolol ER 50mg daily> resume when hemodynamically stable -Atorvastatin 80mg daily> resume as approp -ACEi; Lisinopril 5mg daily> resume when hemodynamically stable -ADAT to heart healthy, 2g Na+ diet Respiratory/Chest Chronic obstructive pulmonary disease (HCC) Yes Overview ICD10 Current Assessment & Plan -resume home inhalers -prn oxygen and continuous pulse oximetry to maintain sats >88% Digestive PONV (postoperative nausea and vomiting) Unknown Current Assessment & Plan -prn Zofran and compazine -MIVF until taking adq PO Other History of non-ST elevation myocardial infarction (NSTEMI) Yes Overview Overview: Cath 12/28/14: 100% LAD - stented with bare metal due to history of cerebral aneurysm. Norm al LM; normal LCX; 20-30% RCA. Elevated EDP. Echo.12/28/14. LVEF.54% Current Assessment & Plan -see ischemic cardiomyopathy plan above Tobacco dependence Yes Current Assessment & Plan -f/up tobacco use now and possible need for smoking cessation education and/or need for n icotine replacement therapy Acute postoperative pain Unknown Current Assessment & Plan -Multimodal postop pain regimen -PRN APAP -PRN oxycodone -prn hydromorphone IV @ICUCODESTATUS@ @POLSTSTAT@ @ICUCODESTATUS@ The Advanced Care Note for this patient can be found under the notes tab in chart review. Review of Systems Unable to perform ROS: acuity of condition Constitutional: She appears well-developed and well-nourished not diaphoretic no distress HENT: Crani cap in place with no visible drng Neck: neck supple Cardiovascular: normal rate, regular rhythm, normal heart sounds and intact distal pulses n o murmur heard.Exam reveals no friction rub and no gallop. Pulmonary: effort normal and breath sounds normal. Diminished throughout Abdominal: Abdomen is soft. She exhibits no distention. Musculoskeletal: She exhibits no edema. Skin: Skin is warm and dry. no rash noted. No erythema. No pallor. Physical exam Comments Arouses to name, Ox4, speech clear and fluent, face symmetric upon activation, PE RRL, EOM's intact, SILT, no dysmetria, no drift, FCx5 5/5 strength . Past Medical History: Diagnosis Date Abnormal LFTs (liver function tests) CAD in [place] artery s/p NSTEMI 12/27/2014; status post stent placement in the mid LAD Chronic pain COPD on oxygen at night Essential hypertension GERD (gastroesophageal reflux disease) Goiter Hemorrhagic stroke ([facility]) 2007 aneurysm MRSA (methicillin resistant staph aureus) culture positive post cariotomy for SAH Otitis media recent abx preadmit PONV (postoperative nausea and vomiting) Subarachnoid hemorrhage due to ruptured aneurysm ([facility]) 2007 Tobacco dependence Past Surgical History Procedure Laterality Date Partial thyroidectomy Right Hysterectomy Bladder suspension 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 Assistant Department Manager shunt Tympanoplasty Right 1987 Lumpectomy of left breast 1979 Coronary stent placement 12/28/2014 status post stent placement in the mid LAD Removal of svp monetization shunt Cholecystectomy Allergies Allergen Reactions Baxter Tar Hives Betadine [Povidone-Iodine (With Soap)] Rash Cipro [Ciprofloxacin] Nausea and Vomiting Codeine Hcl Nausea and Vomiting Sulfa (Sulfonamide Antibiotics) Erythema Family History Problem Relation Additional Family History Mother dementia Cancer Father brain Cancer Brother lung Social History Social History Marital status: Spouse name: N/A Number of children: N/A Years of education: N/A Occupational History Not on file. Social History Main Topics Smoking status: Current Every Day Smoker Packs/day: 1.00 Years: 50.00 Types: Cigarettes Smokeless tobacco: Never Used Comment: Alcohol use No Drug use: No Sexual activity: No Other Topics Concern Not on file Social History Narrative Lives alone. February 2012. Prescriptions Prior to Admission Medication Sig Dispense Refill Last Dose aspirin EC 81 mg oral tablet,delayed release (DR/EC) Take 1 tablet by mouth once daily. Do not restart aspirin until 2 weeks after surgery-12/20 Within last 7 days atorvastatin 80 mg oral tablet Take 80 mg by mouth once daily. 05/07/2018 ipratropium-albuterol 0.5 mg-3 mg(2.5 mg base)/3 mL inhalation solution for nebulizatio n Inhale 3 mL two times daily. 05/07/2018 lisinopril 5 mg oral tablet Take 5 mg by mouth once daily. 05/07/2018 metoprolol succinate 50 mg oral tablet extended release 24 hr Take 50 mg by mouth once daily. 05/07/2018 nitroglycerin 0.4 mg sublingual tablet, sublingual Place under tongue. Not Taking spironolactone 25 mg oral tablet Take 25 mg by mouth once daily. 05/07/2018 NSICU treatment team members Provider Role Specialty Ipt Critical Care Nsicu #[id number] Treatment Team Ipt Neurosurgery #[id number] Treatment Team Neurological Surgery Patient Lines/Drains/Airways Status Active Lines, Drains and Airways Name: Placement date: Placement time: Site: Days: Peripheral IV Left Forearm 18 g 05/08/18 0731 Forearm 1 Wound Left thumb Other (Comment) 12/03/17 2200 thumb 156 Wound Midline coccyx Pressure ulcer 12/03/17 2200 coccyx 156 Incision Right head 12/05/177 154 Incision Right adb- upper quadrant 12/05/17 155 Incision Right head- frontal 05/08/18 1 Quality section Dispo: NSICU admit FAST HUG Feeding: ADAT Analgesia: MM Sedation: na Thromboprophylaxis: SCDs Head of Bed: Head of Bed >30 degrees Ulcer Prophylaxis: not clinically indicated Glycemic Control: not indicated I have spent a total of 45 Minutes independently in the direct care and management of th is patient.Time is independent of any time spent teaching or performing any separately billa ble procedures. I reviewed the documented findings, all data and the recent imaging availabl e. Date of Service: 05/08/2018 KOKO KNIGHT EPIC DEPARTMENT: ANE ICU NEURO Place of Service:- Inpatient CSN: [id number] Suggested Modifier: None Suggested CPT: TO TANK CAR INSPECTOR KOKO Hoang Author:KOKO KNIGHT [address] [id number] signed by KOKO Hoang at 05/09/2018 11:10 AM Vickie Haines MD,MPH - 05/08/2018 8:11 AM PDTFormatting of this note might be differen t from the original. Pre-Operative History and Physical Gloria Bell presents for Right synthetic cranioplasty, possible free flap cover age by ENT, for acquire skull defect. Prior to Admission Medications Prescriptions aspirin EC 81 mg oral tablet,delayed release (DR/EC) Sig: Take 1 tablet by mouth once daily. Do not restart aspirin until 2 weeks after surgery- 12/20 atorvastatin 80 mg oral tablet Sig: Take 80 mg by mouth once daily. ipratropium-albuterol 0.5 mg-3 mg(2.5 mg base)/3 mL inhalation solution for nebulization Sig: Inhale 3 mL two times daily. lisinopril 5 mg oral tablet Sig: Take 5 mg by mouth once daily. metoprolol succinate 50 mg oral tablet extended release 24 hr Sig: Take 50 mg by mouth once daily. nitroglycerin 0.4 mg sublingual tablet, sublingual Sig: Place under tongue. spironolactone 25 mg oral tablet Sig: Take 25 mg by mouth once daily. Facility-Administered Medications: None Allergies Allergen Reactions Baxter Tar Hives Betadine [Povidone-Iodine (With Soap)] Rash Cipro [Ciprofloxacin] Nausea and Vomiting Codeine Hcl Nausea and Vomiting Sulfa (Sulfonamide Antibiotics) Erythema Past Medical History: Diagnosis Date Abnormal LFTs (liver function tests) CAD in [place] artery Chronic pain COPD Essential hypertension GERD (gastroesophageal reflux disease) Goiter Hemorrhagic stroke (HCC) 2007 MRSA (methicillin resistant staph aureus) culture positive Otitis media PONV (postoperative nausea and vomiting) Subarachnoid hemorrhage due to ruptured aneurysm (HCC) 2007 Tobacco dependence ROS: negative for fatigue, fevers, sweats, weakness Exam: BP 122/59 (BP Location: Left upper arm, Patient Position: Lying on back) | Pulse 98 | Tem p 36.5 C (97.7 F) | Resp 15 | Ht 1.499 m (4' 11") | Wt 50.3 kg (110 lb 14.3 oz) | Sp O2 96% | BMI 22.40 kg/m | BSA 1.45 m Heart: regular bypalpation Lungs: unlabored on room air Neuro: AAOx4 Speech fluent PERRL/EOMI; OS ptosis Face symmetric, tongue midline BUE: 5/5, no drift BLE: 5/5 Impression/Diagnosis: acquire skull defect Surgical Plan: Neurosurgery to perform Right synthetic cranioplasty; ENT possible flap acosta SANCHEZ Reviewed, consent on chart. Please contact the Neurosurgery resident on-call pager [phone] with questions or concerns. Vickie Estrada M.D., M.P.H. R2 Resident Physician Neurological Surgery Pager: [phone] signed by Magnolia Diego MD at 05/16/2018 9:09 AM PDTdocumented i n this encounter Procedure Notes Ata White MD - 05/08/2018 2:53 PM PDTAssociated Order(s): OPERATION RECORDDate of Service : 05/08/2018 Attending Surgeon:Ata White MD Rocket Assembly Operator(s):Abel Pratt MD Preoperative Diagnosis: Cranioplasty. Postoperative Diagnosis: Cranioplasty. Operative Procedure: Rotation advancement of scalp flap approximately 20 x 8 cm to allow f or closure over cranioplasty. Description Of Procedure: This woman has had a cranioplasty. It got infected in the past, and she comes in now for a revision. She had her scalp flap elevated with the team. The n eurosurgeons then inserted the cranioplasty. We assessed things. The scalp skin is thin, but it does look like it is thick enough to weather. On re-draping it and mobilizing it and elevating a scalp flap with some rotation, we were able to get goo d primary closure. In assessing the thickness, I think that it is adequate. It may be that it will start to atrophy and get close. I think though that we will monitor her closely an d follow her closely. If, in fact, it does look like it is starting to come through the ski n, etc., then we would be able to put a flap up at that time. We discussed this with Neurosurgery and felt that this was the best option. Consequently after rotating the scalp flap forward and around, we closed it using 3-0 Vicry ls and 3-0 nylons. These were done, the Vicryl in an interrupted buried fashion and the nyl on in a running continuous fashion. Ata White MD MW/MODL /[id number] signed by Ata White MD at 05/08/2018 3:33 PM PDTDoMagnolia malik MD - 05/08/2018 1:14 PM PDTAssociated Order(s): OPERATION RECORDDate of Service: 05/08/2018 Attending Surgeon: Magnolia Diego MD Co-Surgeon: Ata White MD. Rocket Assembly Operator(s): Giovanni Vincent MD. 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 Postoperative Diagnosis: Right frontotemporal acquired skull defect. Procedure Performed: Right frontotemporal synthetic custom cranioplasty, greater than 5 cm . Anesthesia: General endotracheal anesthesia. Estimated Blood Loss: 50 mL. Implants: The Synthes custom cranioplasty. Specimens: None. Complications: None. Findings: There was no evidence of infection whatsoever. No CSF was encountered. The ski n flap was quite thin but was able to close without any tension. The hardware was covered w ith a small amount of Cranios bone cement. The skin was closed with a running nylon. Fluids: 1 L of crystalloid. Disposition: PACU then ICU. Drains: No new drains. Indication For Procedure: Ms. Bell is a 68-year-old female with a history of remote sub arachnoid hemorrhage due to a ruptured A-Comm aneurysm. Her subarachnoid hemorrhage was com plicated by posthemorrhagic hydrocephalus, which required a ventriculoperitoneal shunt, and a left superficial neck abscess that required drainage. The patient was lost to followup fo r many years and then in 2015 presented with resorption of her bone flap and loose hardware. The patient underwent a synthetic custom cranioplasty at that time. The patient re-presen eli in November 2017 with a portion of the cranioplasty protruding through the patient's skin . The patient was brought to the operating room on November 2017 for explant of all hardware and explant of her shunt, which she tolerated without any complication or recrudescence of her hydrocephalus. The patient presented to clinic with her right frontotemporal skull defe ct and desired cranioplasty for largely cosmetic reasons. The patient was noted to be easton nuing to smoke and was heavily encouraged by all provider she encountered to stop smoking. The patient was evaluated by the plastic surgery team, who reported that although her cranie ctomy incision was healing well, she might require a free flap for tissue coverage during r cranioplasty. As such, they joined us for the procedure. We had an extended PARQ discuss ion with the patient regarding the rationale for surgery, the alternatives to surgery, and t he risks of surgery, and after all of her excellent questions were answered, consent was obt ained and placed in the chart. Procedure In Detail: Ms. Bell was identified in the preoperative holding area by name, MRN, and date of . The patient was brought to the operating room and placed under gene ral endotracheal anesthesia by the anesthesia team. The patient's eyes were taped shut to p floryt corneal abrasion. The patient's bed was turned. The patient's head was placed in a horseshoe hogshead press operator, and all pressure points were carefully padded. The patient's hair wa s clipped along her incision. The patient's scalp, right neck, right chest, and right arm w ere prepped and draped in the usual sterile manner after a 1000 drape was applied to protect the patient's eyes and Xeroform gauze was placed in her right ear to protect her hearing. After the prep was allowed to dry, we had a surgical time-out, in which all parties in the o perating room agreed that this was the correct patient in the correct position and we were p erforming the correct procedure. After all parties agreed, we proceeded. The skin was open ed with a 15 blade. Dissection down to the cranium was performed with Bovie monopolar elect rocautery. The scalp was elevated in the subperiosteal plane. The scalp was quite thin. T he skin was elevated over the cranial defect with blunt dissection with Metzenbaum scissors. There was no injury to the brain, and we did not see any CSF during this portion of the pr ocedure. We continued dissecting bluntly in this plane until we had circumferentially expos ed the bone around the craniectomy. The custom flap was opened and brought onto the field a nd placed over the craniectomy defect, and it fit very well. We placed, on the back table, 3 short dog bone plates around the periphery of the cranioplasty and then affixed them to th e [place] skull until they sat flush. Due to the concern that the cranial plating hardware m ight protrude from the skin due to how thin the skin was, we covered each of the plates and screws with a very small amount of Cranios bone cement that had some vancomycin powder mixed in. The plastic surgery team evaluated the patient's incision and determined the patient's scalp could be closed without any tension on the incision and determined that the patient's scalp was likely thick enough to accommodate the underlying new hardware. The wound was co piously irrigated. Hemostasis was re-evaluated and determined to be excellent. The wound w as closed in layers with inverted interrupted 3-0 Vicryl sutures for the galea and a running 3-0 nylon for the skin. The incision was cleaned and dried and dressed with bacitracin, Te lfa, and a cranial cap. The patient tolerated the procedure well with no apparent complicat ions. All sponge, needle, and instrument counts were correct at the end of the procedure x2 . The patient was then turned over the anesthesia team, who proceeded to extubate the patie nt and monitor her emergence. The patient was brought to the PACU for further recovery. MD Magnolia Dudley MD CHANTALE/MODL /[id number] I, Dr. Magnolia Diego certify that I was present for and participated in the critical parts of the procedure. I further certify that I was the principal surgeon for this procedure. MAGNOLIA DIEGO MD [facility] [address] [facility] [address] documented in this encou nter Miscellaneous Notes Plan of Care - Fabienne Navarro RN - 05/10/2018 10:43 AM PDTPatient Education Materials: AVS p rinted out after 10K pharmacist verified medications, discussed discharge paperwork and educ ation, all questions answered. All belongings gathered and sent home with patient. Patient s upplied with O2 tank to take home (large and small) and DC out of hospital on O2. Patient di scharged from hospital in wheelchair with family to drive them home. Additional Instructions: discussed follow up appointments and crani care Discharge Nurse: FABIENNE NAVARRO RN Date: 05/10/2018 Discharge Time: 10:30am ssessment & Plan Note - Amaya Norton ACNP - 05/10/2018 10:43 AM PDTAssociated Problem(s): History of chronic re spiratory failure-reports she uses home oxygen; 4L but did not travel here to [facility] with it -stable on 4L NC -RT and CM consulted to assist with travel needs in regards to Oxygen> see noteElectronical ly signed by KOKO Hoang at 05/26/2018 1:38 AM PDTPlan of Care - Trey Hurst RCP - 05/10/2018 5:23 AM PDT Problem: RT Goals & Interventions Goal: Evaluation Outcome: Expected progress toward goal History and Assessment Pulmonary problems: COPD Smoking history: History Smoking Status Current Every Day Smoker Packs/day: 1.00 Years: 50.00 Types: Cigarettes Smokeless Tobacco Never Used Comment: Results of recent Chest X-ray: Lab Results [...] / - - Pain: Oxygen requirement: Heart rate:75 Respiratory rate: 18 Temperature: Temp: 36.8 C (98.2 F) Breathsounds:Breath Sound Locations: Throughout Throughout All [place]: clear L General: coarse R General: diminished LLL General: diminished RLL General: diminished Cough and sputum production:Cough Type: good;nonproductive Respiratory Acuity and Protocol Plan A respiratory evaluation has been completed. Based on this assessment Adult Bronchodilator Protocol and Evaluated for treatment under home maintenance therapy. andoff - Carmella Arriola RN - 05/10/2018 2:13 AM PDTNursing Handoff Patient Daily Goal: sleep and go home tomorrow (05/09/181938) [facility] IP NURSE HANDOFF: Nesbitt hospital course events: Gloria Bell is a 68 year old female w ith CAD, NSTEMI (01/05) s/p stent in the mid LAD on ASA, HTN, tobacco dependence and COPD. 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 In December of 2014 she was noted to have a right crani screw exposed with significant sunken cranial defec t but 2/2 to her recent NSTEMI, stent placement and DAPT she was deferred for surgery. In Se pt2015 she had an uncomplicated right synthetic cranioplasty. In November of 2017 sh e was noted right sided wound dehiscence and epidural MSSA wound infection for which she und erwent explant of right frontal VPS and right cranioplasty. She was discharged home with a P [facility] and received IV ceftriaxone for 6 weeks. She returns today for right synthetic craniopla sty. Admitted to NSICU postop for neuro monitoring. 05/09 Trx from NICU to 10K SAFETY Patient/Family Target: Gloria will call before getting out of bed overnight. Progress to Target: No Change As evidenced by: Gloria called appropriately overnight. She is SBA to bathroom. RESTORATIVE MEASURES/SELF-MANAGEMENT Patient/Family Target: NURSING ASSESSMENT & RECOMMENDATIONS FORWARD Nursing Assessment of Patient Stability Risk: Moderately stable Recommendations Forward: - Continue to monitor pt for signs/symptoms of infection - Support respiratory needs- supplemental O2, nebs, cough/deep breathing (on home O2) - Educate/encourgae quit smoking- Nicotine patch ordered. - SBA up to BR, calls appropriately - Hold SS, had BM x2 this shift - RT ed case manager left O2 tank (x2) at bedside for discharge. Pt continuing to need supplementa l O2 to keep O2 sats >88% Barriers to discharge: DC to home today AM?- Son Augusto will drive from [place] [employer] to come [facility] her up in the AM. andoff - Ricarda Navarro RN - 05/09/2018 2:54 PM PDTNursing Handoff Patient Daily Goal: no more stool softeners (05/09/18 9051) [facility] IP NURSE HANDOFF: Nesbitt hospital course events: Gloria Bell is a 68 year old female w ith CAD, NSTEMI (01/05) s/p stent in the mid LAD on ASA, HTN, tobacco dependence and COPD. 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 In December of 2014 she was noted to have a right crani screw exposed with significant sunken cranial defec t but 2/2 to her recent NSTEMI, stent placement and DAPT she was deferred for surgery. In Se 2015 she had an uncomplicated right synthetic cranioplasty. In November of 2017 sh e was noted right sided wound dehiscence and epidural MSSA wound infection for which she und erwent explant of right frontal VPS and right cranioplasty. She was discharged home with a P [facility] and received IV ceftriaxone for 6 weeks. She returns today for right synthetic craniopla sty. Admitted to NSICU postop for neuro monitoring. 05/09 Trx from NICU to 10K COMFORT/ANXIETY/BEHAVIOR Patient/Family Target: Gloria will report pain at or below tolerable level this shift Progress to Target: No Change As evidenced by: Gloria denied pain this shift on 10K. HYGIENE/INFECTION Patient/Family Target: Gloria will remain free of infections r/t being in hospital Progress to Target: No Change As evidenced by: Invasive lines have been removed in ICU however pt had increased WBC count today, though remained afebrile once on 10k. Continuous to monitor incision and vital signs. RESTORATIVE MEASURES/SELF-MANAGEMENT Patient/Family Target: Gloria will ambulate with SBA to BR this shift Progress to Target: Improving As evidenced by: Gloria was up to BR with SBA NURSING ASSESSMENT & RECOMMENDATIONS FORWARD Nursing Assessment of Patient Stability Risk: Moderately stable Recommendations Forward: - Continue to monitor pt for signs/symptoms of infection - Support respiratory needs- supplemental O2, nebs, cough/deep breathing (on home O2) - Educate/encourgae quit smoking- Nicotine patch ordered. - SBA up to BR, calls appropriately - Hold SS, had BM x2 this shift - RT ed case manager left O2 tank (x2) at bedside for discharge. Pt continuing to need supplementa l O2 to keep O2 sats >88% Barriers to discharge: DC to home tomorrow AM- Son Augusto will drive from [place] [employer] to come p ick her up in the AM. andoff - John John RN - 05/09/2018 1:12 PM PDTNursing Handoff [facility] IP NURSE HANDOFF: Nesbitt hospital course events: Gloria Bell is a 68 year old female w ith CAD, NSTEMI (01/05) s/p stent in the mid LAD on ASA, HTN, tobacco dependence and COPD. 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 In December of 2014 she was noted to have a right crani screw exposed with significant sunken cranial defec t but 2/2 to her recent NSTEMI, stent placement and DAPT she was deferred for surgery. In Se 2015 she had an uncomplicated right synthetic cranioplasty. In November of 2017 sh e was noted right sided wound dehiscence and epidural MSSA wound infection for which she und erwent explant of right frontal VPS and right cranioplasty. She was discharged home with a P [facility] and received IV ceftriaxone for 6 weeks. She returns today for right synthetic craniopla sty. Admitted to NSICU postop for neuro monitoring. SAFETY Patient/Family Target: Pt will remain free of falls Progress to Target: Improving As evidenced by: Pt oob to chair and commode, 2 walks around hallway this AM. Steady on feet. Needs remind er about O2 and LDAs when getting oob. HYGIENE/INFECTION Patient/Family Target: Pt will remain free of infections r/t being in hospital Progress to Target: No Change As evidenced by: Invasive lines have been removed however pt had increased WBC count, slightly febrile, an d increased HR over night. Continue to monitor incision and vital signs. NURSING ASSESSMENT & RECOMMENDATIONS FORWARD Nursing Assessment of Patient Stability Risk: Moderately stable Recommendations Forward: Continue to monitor pt for signs/symptoms of infection Support respiratory needs- supplemental O2, nebs, cough/deep breathing Educate/encourgae quit smoking- Nicotine patch ordered. Barriers to discharge: DC to home tomorrow AM. Son Augusto will drive from [place] [employer] to come pick her up in the AM. RT ed case manager left O2 tank (x2) at bedside for discharge. Pt continuing to need supplemental O2 to keep O2 sats >88% lan of Care - Rula Pacheco, PT - 05/09/2018 9:53 AM PDTFormatting of this note might be different from the orig inal. 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 Patient seen on 7NSICU. Others Present for PT session besides patient and therapist: nurse for most of session Consulted/Discussed patient's care with: nurse Brief Hospital Course: Gloria Bell is a 68 y.o. female HD#1 with CAD, SD s/p s tent on ASA/plavix, HTN, previous HH4F3 SAH due to acomm aneurysm rupture in 2007, post hemo rrhagic hydrocephalus with RIGHT VPS medium pressure, explant of shunt and synthetic craniop lasty due to wound dehiscence, MSSA infection who is not s/p synthetic cranioplasty 05/08/18. (Jose M Eaton MD on 05/09/18) Relevant Precautions: crani Indication for PT Evaluation: Instruction for safety with mobility following surgery or inj ury Past Medical History: Diagnosis Date Abnormal LFTs (liver function tests) CAD in [place] Chronic pain COPD Essential hypertension GERD (gastroesophageal reflux disease) Goiter Hemorrhagic stroke (HCC) 2007 MRSA (methicillin resistant staph aureus) culture positive Otitis media PONV (postoperative nausea and vomiting) Subarachnoid hemorrhage due to ruptured aneurysm (HCC) 2007 Tobacco dependence Past Surgical History: Procedure Laterality Date BLADDER SUSPENSION CHOLECYSTECTOMY CORONARY STENT PLACEMENT 12/28/2014 HYSTERECTOMY LUMPECTOMY OF LEFT BREAST 1979 PARTIAL THYROIDECTOMY Right REMOVAL OF COMMUNITY PHARMACIST SHUNT REPAIR OF ANEURYSM BY CLIPPING TYMPANOPLASTY Right 1987 COMM[employer]ACIST SHUNT Living Environment: Patient lives alone in a single story home with "a few" steps to enter. Son lives next door, can provide intermittent assist as needed. Prior Level of Function: Mobility: independent without use of assistive device. Equipment at home: O2 for at night only Patient / Family Goal: go home as soon as possible Communication/Barriers: none Pain: no complaints Vital Signs: HR 100-140's, however appears affected by motion artifact during mobility Cognitive Screen Level of alertness: alert Orientation: x4 Quality of responses: appropriate Command following: intact Judgment / safety awareness: moves quickly but responds well to cuing to slow for safety w ith lines Physical Assessment ROM: bilateral upper and lower extremity grossly within functional limits Strength: bilateral upper and lower extremity within functional limits Edema: none noted Skin Integrity: incision to scalp intact Posture: within functional limits Neurological Function Sensation: intact Muscle Tone: within functional limits Proprioception: within functional limits Gross Motor: within functional limits Fine Motor: within functional limits Balance: Sitting static: independent Sitting dynamic: independent Standing static: independent Standing dynamic: independent, supervision for lines only Mobility & Transfers: Supine <> sit independently Sit <> stand independently. Toilet transfer on/off commode independently. Gait: The patient ambulated 2 x 315 feet with supervision for line management only. She ambulates at a quick pace, occasional cues for safety with line management to which she responds appr opriately. SpO2 on 2 lpm >91%, on room air fluctuating from 85-91%. Outcome Measure: [facility] BASIC MOBILITY Difficulty turning over in bed 4 - None - Modified Independent/Independent Difficulty sitting/standing from chair w/ arms 4 - None - Modified Independent/ Independent Difficulty moving from supine to sitting on edge of bed 4 - None - Modified Independent/Ind ependent Help needed moving from /to chair/wheelchair 4 - None - Modified Independent/Independent Help needed walking in hospital room 4 - None - Modified independent/Independent Help needed climbing 3-5 steps w/railing 4 - None - Modified Independent/Independent [facility] Basic Mobility Total Score 24 Interpretation of [facility] Short Form - Basic Mobility: CMS Modifier (G-Code) Score (in points) % of Functional Impairment, Limitation, or Restriction CH 24 0% impaired, limited, or restricted *This score not officially observed but is implied based on other components of patient's m obility and may be an underestimate Treatment and education provided this date: Evaluation completed, and therapeutic activity- transfer and gait training with emphasis on improving endurance and safety. Education on pr ecautions, safety, activity recommendations, and PT role and plan of care. Ended session: The session was ended with patient supine in bed, call light and tray table within reach and nurse updated and at bedside. ASSESSMENT: Gloria Bell is a 68 year old admitted on 05/08/2018 with prior leve l of function independent. Patient presents here with close to baseline level of function, s afety currently impacted by oxygen desaturation on room air with activity and at rest. Antic ipate this will continue to improve with routine mobility with nursing staff. She has no fur ther need for skilled physical therapy services, and will be discharged from PT at this time . Problem: PT Goals- Adult Goal: Functional Mobility Goal 1. Patient will perform all transfers independently. 2. Patient will ambulate > 150 feet independently. 3. Patient will be independent in recalling and adhering to precautions/activity recommenda tions. Outcome: Goal met Date Met: 05/09/18 Personal factors/Comorbidities; High - 3 or more personal factors. Behavior: None Learning Factors: Appears mildly anxious/frustrated, anxious to return home Social Issues: Housing situation impacts discharge and Multiple hospitalizations Medical Conditions Impacting Care: Smoking and Challenged integumentary system Body Systems Elements: High - 4 or more elements Body structures & functions: Endurance Activity limitations: Difficulty with stairs and Difficulty with activities of daily living Participation restrictions: Community activities and crani precautions. Clinical Presentation: High - Unstable: Vital signs response and Rapid decline of current c ondition leading to hospitalization Clinical decision making: High Complexity: High level of skill to determine plan of care an d implement changes accordingly Complexity: high Gloria's knowledge of disease process: Good . The patient requires services that can be safely and effectively performed only by a quali fied therapist to address the aforementioned and highlighted problems and goals. Goals discussed and agreed upon with Gloria. Activity Recommendations for Nursing partners: *Nursing to re-assess per shift as needed.* - Lights on and curtains open during day hours. -out of bed to chair for meals or at least 3x/daily with nursing staff assistance - routine hallway ambulation at least 3x/daily with nursing staff assistance DISCHARGE RECOMMENDATIONS: Home with assist PRN;Return to prior living arrangement PLAN: Discontinue PT services, patient to continue routine mobility with nursing staff ass istance as needed, The above plan of care and goals were developed and reviewed with the patient. Should this patient discharge from the hospital prior to the next physical therapy treatmen t, this note shall serve as the discharge summary. lan of Care - Patrick Richmond RCP - 05/09/2018 9:02 AM PDTProblem: RT Goals & Interventions Goal: Assess patient and arrange for respiratory DME at discharge Intervention: Establish medical necessity and identify repiratory DME needed for discharge RT DC Pattern Hand delivered 2 tanks for patient discharge to home. Patient might stay with brother in [place] instead of go home to [place]. If patient goes to [place] and stays with her brother, RT DCP with have vendor deliver concen trator. Vendor is [facility] [place] [phone], and [place] [employer] [phone]. The RT senior media planner will continue to follow . Pager [phone] with any questions. andoff - Nataliya Martinez, ALEKSANDAR - 05/09/2018 2:35 AM PDTNursing Handoff [facility] IP NURSE HANDOFF: Nesbitt hospital course events: Gloria Bell is a 68 year old female w ith CAD, NSTEMI (01/05) s/p stent in the mid LAD on ASA, HTN, tobacco dependence and COPD. 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 In December of 2014 she was noted to have a right crani screw exposed with significant sunken cranial defec t but 2/2 to her recent NSTEMI, stent placement and DAPT she was deferred for surgery. In Se pt2015 she had an uncomplicated right synthetic cranioplasty. In November of 2017 sh e was noted right sided wound dehiscence and epidural MSSA wound infection for which she und erwent explant of right frontal VPS and right cranioplasty. She was discharged home with a P [facility] and received IV ceftriaxone for 6 weeks. She returns today for right synthetic craniopla sty. Admitted to NSICU postop for neuro monitoring. SAFETY Patient/Family Target: Pt will remain free of falls while in ICU, will get OOB to chair in AM Progress to Target: No Change As evidenced by: Pt waits for assistance when moving and requests to get out of bed in morning HYGIENE/INFECTION Patient/Family Target: Pt will remain free of infections r/t being in hospital Progress to Target: Deteriorating As evidenced by: Invasive lines have been removed however pt had increased WBC count, slightly febrile, an d increased HR over night NURSING ASSESSMENT & RECOMMENDATIONS FORWARD Nursing Assessment of Patient Stability Risk: Moderately stable Recommendations Forward: Continue to monitor pt for signs/symptoms of infection, administer antibiotics as ordered Barriers to discharge: Neuro monitoring required CP (Advance C are Planning) - Shirley Jay ACNP - 05/08/2018 10:30 PM PDT . Neuroscience Intensive Care Unit Goal of Care / Advance Care NSICU ASSIGNED #[id number] Date: 05/08/18 Advanced Directives: The patient does not have an advance directive in the EMR. A POLST is not indicated in the EMR. Healthcare Agent(s): Surrogate decision maker has been identified and is : Venessa Gerard (Daughter) , patents can be contacted at . The surrogate decision maker has been listed as the e mergency contact within [employer]. Code Status: Current Code Status Date Active Code Status Order ID Comments User Context 05/08/2018 7:07 AM Full Code [id number] Millicent Tony MD Inpatient Code History: Code Status History Date Active Date Inactive Code Status Order ID Comments User Context 12/03/2017 9:59 PM 12/10/2017 2:28 AM Full Code [id number] Tommie Zarco MD Inpatient 10/23/2015 3:47 PM 10/25/2015 6:29 PM Full Code [id number] Antoinette Adkins MD,PhD Inpatient 10/23/2015 6:46 AM 10/23/2015 3:47 PM Full Code [id number] Tommie Bliss Inpatient 06/07/2014 9:11 AM 06/08/2014 6:06 PM Full Code [id number] Angel Mazariegos MD Inpatient 06/07/2014 6:13 AM 06/07/2014 9:11 AM Full Code [id number] Beny Cruz MD Inpatient 05/13/2008 4:34 PM 05/14/2008 7:21 PM Full Code [id number] Alli Junior MD Inpatient 04/11/2008 5:27 PM 04/13/2008 11:04 PM Full Code [id number] Saskia Nguyen RN Inpatient 03/03/2008 1:17 PM 03/08/2008 10:09 PM Full Code [id number] To Prieto MD Inpatient 03/03/2008 1:16 PM 03/03/2008 1:16 PM DNR/DNI [id number] To Prieto MD Inpatient 03/03/2008 12:06 AM 03/03/2008 1:16 PM Full Code [id number] Marlon Mcintyre MD Inpatient 10/30/2007 10:53 PM 11/02/2007 8:59 PM Full Code [id number] Antoinette Saenz RN Inpatient 10/18/2007 5:01 AM 10/30/2007 10:53 PM Full Code [id number] Norberto Bolaños Inpatient Narrative Summary of Conversation: Patient able to participate in medical decision making The advance directive plan was not discussed with the patient POLST was not reviewed with patient. Code status was reviewed with the patient. Code status is in this note. Patient would like compressions shock and intubation if indicated. Decisions and Plan: End of life care discussion was not held with the patient. KOKO Mendez andoff - Torey John RN - 05/08/2018 3:37 PM PDTNursing Handoff [facility] IP NURSE HANDOFF: Nesbitt hospital course events: From Dr. Vallecillo's note: "Gloria Bell is a 68 year old female with CAD, NSTEMI (01/05) s/p stent in the mid LAD on ASA, HTN, tobac co dependence and COPD. 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 In December of 2014 she was noted to have a right crani screw exposed with signifi cant sunken cranial defect but 2/2 to her recent NSTEMI, stent placement and DAPT she was de ferred for surgery. In October of 2015 she had an uncomplicated right synthetic cranioplas ty. In November of 2017 she was noted right sided wound dehiscence and epidural MSSA wound in fection for which she underwent explant of right frontal VPS and right cranioplasty. She was discharged home with a PICC and received IV ceftriaxone for 6 weeks. She returns today for right synthetic cranioplasty. Admitted to NSICU postop for neuro monitoring." SAFETY Patient/Family Target: Gloria will deny ZULUAGA, will tolerate pain <4/10 Progress to Target: No Change As evidenced by: Gloria has complained of mild R ZULUAGA post-op, but denies any need for pain medication. Educated to inform RN of increasing pain level and to request pain medication when needed. HEALTH PROMOTION Patient/Family Target: Gloria will be open to considering quitting smoking Progress to Target: No Change As evidenced by: Gloria has been a long time smoker (since age 15). She has tried quitting in the past wit hout success. Support from family members and friends. Information and encouragement provide d from Dr. Vallecillo and Renetta HUERTAS. Education re: Nicotine patch, quitting smoking plans etc NURSING ASSESSMENT & RECOMMENDATIONS FORWARD Nursing Assessment of Patient Stability Risk: Moderately stable Recommendations Forward: Q1 neuro exam Advance diet Advance activity Likely transfer to acute care tomorrow ssessment & Plan N hamzah - Amaya Norton, [facility] - 05/08/2018 1:26 PM PDTAssociated Problem(s): History of non-S T elevation myocardial infarction (NSTEMI)-see ischemic cardiomyopathy plan aboveElectronica lly signed by KOKO Hoang at 05/08/2018 1:26 PM PDTAssessment & Plan Note - Amaya Norton ACNP - 05/08/2018 1:26 PM PDTAssociated Problem(s): CAD in [place]-see isc hemic cardiomyopathy plan above ssessment & Plan Note - Amaya Norton ACNP - 05/08/2018 12:24 PM PDTAssociate d Problem(s): Acute postoperative pain-POD #1; pt denies pain> dc'd IV hydromorphone -Multimodal postop pain regimen -PRN APAP -PRN oxycodone ssessment & Plan N ote - Amaya Norton ACNP - 05/08/2018 12:23 PM PDTAssociated Problem(s): Tobacco dependen ce-pt reports that she has not smoked tobacco in the "last 3 weeks" - smoking cessation education in regards to delayed wound healing etc. per Provider and RN at BS> pt verbalized understanding - nicotine replacement therapy scheduled and prn ssessment & Plan Note - Amaya Norton ACNP - 05/08/2018 12: 22 PM PDTAssociated Problem(s): PONV (postoperative nausea and vomiting)-prn Zofran and comp azine -tolerating PO> Dc MIVF ssessment & Plan Note - Amaya Norton ACNP - 05/08/2018 12:21 PM PDTAssociated Probl em(s): Chronic obstructive pulmonary disease (HCC)-resume home inhalers -prn oxygen and continuous pulse oximetry to maintain sats >88% ssessment & Plan Note - Amaya Norton ACNP - 05/08/2018 12:11 PM PDTAssociated Problem(s): Ischemic cardiomyopathy-CAD, NSTEMI (12/2014) s/p mid LAD stent -ASA 81mg daily>holding>f/up with NSGY on resumption plan -continue spirolactone 25mg daily -continue Metoprolol ER 50mg daily -continue Atorvastatin 80mg daily -continue Lisinopril 5mg daily -ADAT to heart healthy, 2g Na+ diet ssessment & Plan N Amaya Kennedy ACNP - 05/08/2018 12:06 PM PDTAssociated Problem(s): HTN (hypertensio n)-SBP goal <160 -Home regimen resumed - spirolactone 25mg daily - Metoprolol ER 50mg daily -Lisinopril 5mg daily -prn IV hydralazine ssessment & Plan N Amaya Kennedy ACNP - 05/08/2018 11:47 AM PDTAssociated Problem(s): Skull defect-adm itted s/p right synthetic cranioplasty -f/up postop CTH; stable with no acute intracranial abnormality -IMC status; q4h NC and VS with plan per NSGY and family to go home tomorrow 05/10/18 -Crani icision care per NSICU protocol -Vitamin C and Zinc per crani wound care set implemented to aid in wound care -periop abx x24 hours; Vancomycin -SBP goal <160 -ICU goals; normonatremia and euvolemia -Stat CTH for any neurological decline -05/09; PT to eval and treat today for discharge planning > f/up recs. rief Op Note - Giovanni Vincent MD - 05/08 11:07 AM PDT Brief Op Note Procedure Date: 05/08/2018 Author: GIOVANNI VINCENT MD Attending Physician: Magnolia Diego MD Co-Surgeon: Ata White MD Assistants: Giovanni Vincent MD Preoperative Diagnosis: Right frontotemporal acquired skull defect Postoperative Diagnosis: Same Procedure Performed: Right frontotemporal synthetic custom cranioplasty, greater than 5 cm Anesthesia: GETA Estimated Blood Loss: 50 mL Grafts/Implants: Synthes custom cranioplasty Specimens: None Complications: None Findings: no evidence of infection whatsoever; no CSF encountered; skin flap was quite thin , but was able to close without any tension; hardware covered with small amount of Cranios b one cement; skin closed with running nylon Fluids: 1L crysalloid Disposition: PACU then ICU Patient Lines/Drains/Airways Status Active Lines, Drains and Airways Name: Placement date: Placement time: Site: Days: ETT Endotracheal Tube 7 Oral 05/08/18 0907 Oral less than 1 Peripheral IV Right Forearm 18 g 05/08/18 0731 Forearm less than 1 Peripheral IV Left Dorsal Hand 16 g Hand Wound Left thumb Other (Comment) 12/03/17 220 thumb 155 Wound Midline coccyx Pressure ulcer 12/03/17 2200 coccyx 155 Incision Right head 12/05/17 2127 153 Incision Right adb- upper quadrant 12/05/17 154 Incision Right head- frontal 05/08/18 less than 1 Urethral Catheter Temp-probe Goins 16 Fr. 05/08/18 0845 Temp-probe Goins less than 1 Arterial Line Standard Left Radial 20g 05/08/18 1010 Radial less than 1 GIOVANNI VINCENT MD [id number] signed by Magnolia Diego MD at 05/16/2018 9:09 AM PDTdocumented in this encounter Plan of Treatment Not on filedocumented as of this encounter Procedures + +--------+ + + + | Procedure Name | Priori | Date/Time | Associated Diagnosis | Comments | | | ty | | | | + +--------+ + + + | CBC (HEMOGRAM) ONLY | Urgent | 05/10/2018 | | Results for this | | | | 5:46 AM | | procedure are in the | | | | PDT | | results section. | + +--------+ + + + | CBC ONLY | Urgent | 05/10/2018 | | Results for this | | | | 5:46 AM | | procedure are in the | | | | PDT | | results section. | + +--------+ + + + | CBC (HEMOGRAM) ONLY | Urgent | 05/09/2018 | | Results for this | | | | 12:06 AM | | procedure are in the | | | | PDT | | results section. | + +--------+ + + + | CBC ONLY | Urgent | 05/09/2018 | | Results for this | | | | 12:06 AM | | procedure are in the | | | | PDT | | results section. | + +--------+ + + + | RENAL FUNCTION SET | Urgent | 05/09/2018 | | Results for this | | (NA,K,CL,CO2,BUN,CRE | | 12:05 AM | | procedure are in the | | AT,GLUC,CA,PHOS,ALB | | PDT | | results section. | | ) | | | | | + +--------+ + + + | MAGNESIUM, PLASMA | Urgent | 05/09/2018 | | Results for this | | | | 12:05 AM | | procedure are in the | | | | PDT | | results section. | + +--------+ + + + | PROCEDURE NOTE | Routin | 05/08/2018 | | Results for this | | | e | 10:26 PM | | procedure are in the | | | | PDT | | results section. | + +--------+ + + + | OPERATION RECORD | | 05/08/2018 | | Results for this | | | | 2:53 PM | | procedure are in the | | | | PDT | | results section. | + +--------+ + + + | CBC (HEMOGRAM) ONLY | Urgent | 05/08/2018 | | Results for this | | | | 1:58 PM | | procedure are in the | | | | PDT | | results section. | + +--------+ + + + | CBC ONLY | Urgent | 05/08/2018 | | Results for this | | | | 1:58 PM | | procedure are in the | | | | PDT | | results section. | + +--------+ + + + | OPERATION RECORD | | 05/08/2018 | | Results for this | | | | 1:14 PM | | procedure are in the | | | | PDT | | results section. | + +--------+ + + + | CT HEAD WO CONTRAST | Urgent | 05/08/2018 | | Results for this | | | | 12:45 PM | | procedure are in the | | | | PDT | | results section. | + +--------+ + + + | RENAL FUNCTION SET | Urgent | 05/08/2018 | | Results for this | | (NA,K,CL,CO2,BUN,CRE | | 12:00 PM | | procedure are in the | | AT,GLUC,CA,PHOS,ALB | | PDT | | results section. | | ) | | | | | + +--------+ + + + | CAPILLARY BLOOD | Routin | 05/08/2018 | SAH (subarachnoid | Results for this | | GLUCOSE (NO CHG), | e | 11:35 AM | hemorrhage) (HCC) | procedure are in the | | POC | | PDT | | results section. | + +--------+ + + + | ABG-FULL ABL, POC | Urgent | 05/08/2018 | SAH (subarachnoid | Results for this | | | | 9:01 AM | hemorrhage) (HCC) | procedure are in the | | | | PDT | | results section. | + +--------+ + + + | RADIAL FOREARM FREE | Electi | 05/08/2018 | M95.2 Other | | | FLAP WITH SPLIT | ve | 8:30 AM | acquired deformity | | | THICKNESS SKIN GRAFT | Surgic | PDT | of head T85.79XD | | | | al | | Infection and | | | | | | inflammatory | | | | | | reaction due to | | | | | | other internal | | | | | | prosthetic devices, | | | | | | implants and grafts, | | | | | | subsequent | | | | | | encounter | | + +--------+ + + + +---+--------+ | | | | | Specia | | | l | | | Needs | | | ICU | | | POST-N | | | SICU | | | TEAM | +---+--------+ + +--------+ + +---+ | CRANIOPLASTY WITH | Electi | 05/08/2018 | M95.2 Other | | | CUSTOM IMPLANT | ve | 8:30 AM | acquired deformity | | | | Surgic | PDT | of head T85.79XD | | | | al | | Infection and | | | | | | inflammatory | | | | | | reaction due to | | | | | | other internal | | | | | | prosthetic devices, | | | | | | implants and grafts, | | | | | | subsequent | | | | | | encounter | | + +--------+ + +---+ +---+--------+ | | | | | Specia | | | l | | | Needs | | | ICU | | | POST-N | | | SICU | | | TEAM | +---+--------+ + +--------+ + + + | COAGULOPATHY PANEL | Urgent | 05/08/2018 | | Results for this | | (INR,APTT,FIBRINOGEN | | 8:22 AM | | procedure are in the | | ) | | PDT | | results section. | + +--------+ + + + | BASIC METABOLIC SET | Urgent | 05/08/2018 | | Results for this | | (NA, K, CL, TCO2, | | 8:21 AM | | procedure are in the | | BUN, CR, GLU, CA) | | PDT | | results section. | + +--------+ + + + | CBC AND AUTO DIFF | Urgent | 05/08/2018 | | Results for this | | | | 7:42 AM | | procedure are in the | | | | PDT | | results section. | + +--------+ + + + | CBC, WITH | Urgent | 05/08/2018 | | Results for this | | DIFFERENTIAL | | 7:42 AM | | procedure are in the | | | | PDT | | results section. | + +--------+ + + + | ANTIBODY SCREEN | Urgent | 05/08/2018 | | Results for this | | | | 7:42 AM | | procedure are in the | | | | PDT | | results section. | + +--------+ + + + | TYPE AND SCREEN | Urgent | 05/08/2018 | | Results for this | | | | 7:42 AM | | procedure are in the | | | | PDT | | results section. | + +--------+ + + + | ABO & RH TYPE | Urgent | 05/08/2018 | | Results for this | | | | 7:42 AM | | procedure are in the | | | | PDT | | results section. | + +--------+ + + + | CAPILLARY BLOOD | Routin | 05/08/2018 | SAH (subarachnoid | Results for this | | GLUCOSE (NO CHG), | e | 7:37 AM | hemorrhage) (HCC) | procedure are in the | | POC | | PDT | | results section. | + +--------+ + + + | INTRAPROCEDURE | Routin | 05/08/2018 | | Results for this | | IMAGING | e | 7:07 AM | | procedure are in the | | | | PDT | | results section. | + +--------+ + + + | CARDIOLOGY | | 05/08/2018 | | Results for this | | | | 12:00 AM | | procedure are in the | | | | PDT | | results section. | + +--------+ + + + documented in this encounter Results CBC (HEMOGRAM) ONLY (05/10/2018 5:46 AM PDT) + + + + + + | Component | Value | Ref Range | Performed | Pathologist | | | | | At | Signature | + + + + + + | WHITE CELL | 15.64 (H) | 3.50 - 10.80 | [facility] | | | COUNT | | K/cu mm | LABORATORY | | | | | | SERVICES, | | | | | | CORE | | + + + + + + | RED CELL | 3.65 (L) | 4.00 - 5.20 | [facility] | | | COUNT | | M/cu mm | LABORATORY | | | | | | SERVICES, | | | | | | CORE | | + + + + + + | HEMOGLOBIN | 11.1 (L) | 12.0 - 16.0 | [facility] | | | | | g/dL | LABORATORY | | | | | | SERVICES, | | | | | | CORE | | + + + + + + | HEMATOCRIT | 33.7 (L) | 36.0 - 46.0 % | [facility] | | | | | | LABORATORY | | | | | | SERVICES, | | | | | | CORE | | + + + + + + | MCV | 92.3 | 80.0 - 100.0 fL | [facility] | | | | | | LABORATORY | | | | | | SERVICES, | | | | | | CORE | | + + + + + + | MCHC | 32.9 | 32.0 - 36.0 | [facility] | | | | | g/dL | LABORATORY | | | | | | SERVICES, | | | | | | CORE | | + + + + + + | RDW SD | 45.8 | 35.1 - 46.3 fL | [facility] | | | | | | LABORATORY | | | | | | SERVICES, | | | | | | CORE | | + + + + + + | PLATELET | 207 | 150 - 400 K/cu | [facility] | | | COUNT | | mm | LABORATORY | | | | | | SERVICES, | | | | | | CORE | | + + + + + + | MPV | 10.0 | 9.7 - 12.3 fL | [facility] [...] [facility] | [address] | [place] [address] | | | SERVICES, CORE | [address] | | | + + + + + CBC (HEMOGRAM) ONLY (05/09/2018 12:06 AM PDT) + + + + + + | Component | Value | Ref Range | Performed | Pathologist | | | | | At | Signature | + + + + + + | WHITE CELL | 14.69 (H) | 3.50 - 10.80 | [facility] | | | COUNT | | K/cu mm | LABORATORY | | | | | | SERVICES, | | | | | | CORE | | + + + + + + | RED CELL | 3.79 (L) | 4.00 - 5.20 | [facility] [...] + + + + | HEMATOCRIT | 35.5 (L) | 36.0 - 46.0 % | [facility] | | | | | | LABORATORY | | | | | | SERVICES, | | | | | | CORE | | + + + + + + | MCV | 93.7 | 80.0 - 100.0 fL | [facility] | | | | | | LABORATORY | | | | | | SERVICES, | | | | | | CORE | | + + + + + + | MCHC | 33.0 | 32.0 - 36.0 | [facility] | | | | | g/dL | LABORATORY | | | | | | SERVICES, | | | | | | CORE | | + + + + + + | RDW SD | 46.3 | 35.1 - 46.3 fL | [facility] | | | | | | LABORATORY | | | | | | SERVICES, | | | | | | CORE | | + + + + + + | PLATELET | 221 | 150 - 400 K/cu | [facility] [...] [facility] | [address] | [place] [address] | | | J[place]NS[place], CORE | [address] | | | + + + + + MAGNESIUM, PLASMA (05/09/2018 12:05 AM PDT) + +-------+ + + + | Component | Value | Ref Range | Performed | Pathologist | | | | | At | Signature | + +-------+ + + + | MAGNESIUM,P | 1.7 | 1.6 - 2.6 mg/dL | [facility] | | | LASMA [...] [facility] | [address] | [place] [address] | | | SERVICES, CORE | [address] | | | + + + + + RENAL FUNCTION SET (NA,K,CL,CO2,BUN,CREAT,GLUC,CA,PHOS,ALB ) (05/09/2018 12:05 AM PDT) + +---------+ + + + | Component | Value | Ref Range | Performed | Pathologist | | | | | At | Signature | + +---------+ + + + | GLUCOSE, | 105 (H) | 70 - 99 mg/dL | [...] | | | LABORATORY | | | [facility] | | | SERVICES, | | | [...] + + + | TOTAL CO2, | 21 | 21 - 32 mmol/L | [facility] | | | PLASMA | | | LABORATORY | | | (LAB) | | | SERVICES, | | | | | | CORE | | + +---------+ + + + | CALCIUM, | 7.8 (L) | 8.6 - 10.2 | [facility] | | | PLASMA | | mg/dL | LABORATORY | | | (LAB) | | | SERVICES, | | | | | | CORE | | + +---------+ + + + | CALCIUM(ALB | 8.6 | 8.6 - 10.2 | [facility] | | | CORRECTED) | | mg/dL | LABORATORY | | | | | | SERVICES, | | | | | | CORE | | + +---------+ + + + | ALBUMIN, | 3.0 [...] the MDRD equation recommended by the | [facility] | | National Kidney Disease Education Program. Estimated GFR | LABORATORY | | Interpretive Information: <60 mL/min/1.73 sq m | SERVICES, CORE | | Chronic Kidney Disease <15 mL/min/1.73 sq m | | | Kidney Failure Estimated GFR greater than 60 mL/min/1.73 sq m is of | [...] + + + + | [facility] | [address] | [place] [address] | | | RYAN ORNELAS | [address] | | | + + + + + PROCEDURE NOTE (05/08/2018 10:26 PM PDT)OPERATION RECORD (05/08/2018 2:53 PM PDT) + + | Procedure Note | + + | Ata White MD - 05/08/2018 2:53 PM PDT Date of Service: 05/08/2018 Attending | | Surgeon:Ata White MD Rocket Assembly Operator(s):Abel Pratt MD | | Preoperative Diagnosis: Cranioplasty.Postoperative Diagnosis: | | Cranioplasty.Operative Procedure: Rotation advancement of scalp flap approximately 20 x | | 8 cm to allow for closure over cranioplasty.Description Of Procedure: This woman has | | had a cranioplasty. It got infected in the past, and she comes in now for a revision. | | She had her scalp flap elevated with the team. The neurosurgeons then inserted the | | cranioplasty. We assessed things. The scalp skin is thin, but it does look like it is | | thick enough to weather. On re-draping it and mobilizing it and elevating a scalp flap | | with some rotation, we were able to get good primary closure. In assessing the | | thickness, I think that it is adequate. It may be that it will start to atrophy and get | | close. I think though that we will monitor her closely and follow her closely. If, in | | fact, it does look like it is starting to come through the skin, etc., then we would be | | able to put a flap up at that time. We discussed this with Neurosurgery and felt that | | this was the best option. Consequently after rotating the scalp flap forward and around, | | we closed it using 3-0 Vicryls and 3-0 nylons. These were done, the Vicryl in an | | interrupted buried fashion and the nylon in a running continuous fashion.Ata White, | | MDMW/MODLDD: 05/08/2018 14:29:00DT: 05/08/2018 14:53:38Job #: [id number] | |starting to come through the skin, etc., then we would be able to put a flap up at that [place] e. | | | |We discussed this with Neurosurgery and felt that this was the best option. | | | |Consequently after rotating the scalp flap forward and around, we closed it using 3-0 Vicry ls and 3-0 nylons. These were done, the Vicryl in an interrupted buried fashion and the nyl on in a running continuous fashion. | | | | | | | |Ata White MD | |MW/MODL | | | | | | /[id number] | + + CBC (HEMOGRAM) ONLY (05/08/2018 1:58 PM PDT) + + + + + + | Component | Value | Ref Range | Performed | Pathologist | | | | | At | Signature | + + + + + + | WHITE CELL | 10.70 | 3.50 - 10.80 | [facility] | | | COUNT | | K/cu mm | LABORATORY | | | | | | SERVICES, | | | | | | CORE | | + + + + + + | RED CELL | 3.82 (L) | 4.00 - 5.20 | [facility] [...] + + + + | HEMATOCRIT | 38.7 | 36.0 - 46.0 % | [facility] | | | | | | LABORATORY | | | | | | SERVICES, | | | | | | CORE | | + + + + + + | MCV | 101.3 (H) | 80.0 - 100.0 fL | [facility] | | | | | | LABORATORY | | | | | | SERVICES, | | | | | | CORE | | + + + + + + | MCHC | 30.2 (L) | 32.0 - 36.0 | [facility] | | | | | g/dL | LABORATORY | | | | | | SERVICES, | | | | | | CORE | | + + + + + + | RDW SD | 52.5 (H) | 35.1 - 46.3 fL | [facility] | | | | | | LABORATORY | | | | | | SERVICES, | | | | | | CORE | | + + + + + + | PLATELET | 237 | 150 - 400 K/cu | [facility] [...] | + + + + + | [facility] | [address] | [place] [address] | | | RYAN [place]NELAS | [address] | | | + + + + + OPERATION RECORD (05/08/2018 1:14 PM PDT) + + | Procedure Note | + + | Magnolia Diego MD - 05/08/2018 1:14 PM PDT Date of Service: 05/08/2018 Attending | | Surgeon: Magnolia Diego MD Co-Surgeon: Ata White MD. Rocket Assembly Operator(s): Giovanni | | MD Rakesh. 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 No CSF was encountered. | | The skin flap was quite thin but was able to close without any tension. The hardware | | was covered with a small amount of Cranios bone cement. The skin was closed with a | | running nylon.Fluids: 1 L of crystalloid.Disposition: PACU then ICU.Drains: No new | | drains.Indication For Procedure: Ms. 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 | | The patient was lost to followup for many years and then in 2015 presented with | | resorption of her bone flap and loose hardware. The patient underwent a synthetic | | custom cranioplasty at that time. The patient re-presented in November 2017 with a | | portion of the cranioplasty protruding through the patient's skin. The patient was | | brought to the operating room on November 2017 for explant of all hardware and explant of | | her shunt, which she tolerated without any complication or recrudescence of her | | hydrocephalus. The patient presented to clinic with her right frontotemporal skull | | defect and desired cranioplasty for largely cosmetic reasons. The patient was noted to | | be continuing to smoke and was heavily encouraged by all provider she encountered to | | stop smoking. The patient was evaluated by the plastic surgery team, who reported that | | although her craniectomy incision was healing well, she might require a free flap for | | tissue coverage during her cranioplasty. As such, they joined us for the procedure. We | | had an extended PARQ discussion with the patient regarding the rationale for surgery, | | the alternatives to surgery, and the risks of surgery, and after all of her excellent | | questions were answered, consent was obtained and placed in the chart.Procedure In | | Detail: Ms. Bell was identified in the preoperative holding area by name, MRN, and | | date of . The patient was brought to the operating room and placed under general | | endotracheal anesthesia by the anesthesia team. The patient's eyes were taped shut to | | prevent corneal abrasion. The patient's bed was turned. The patient's head was placed | | in a horseshoe hogshead press operator, and all pressure points were carefully padded. The | | patient's hair was clipped along her incision. The patient's scalp, right neck, right | | chest, and right arm were prepped and draped in the usual sterile manner after a 1000 | | drape was applied to protect the patient's eyes and Xeroform gauze was placed in her | | right ear to protect her hearing. After the prep was allowed to dry, we had a surgical | | time-out, in which all parties in the operating room agreed that this was the correct | | patient in the correct position and we were performing the correct procedure. After all | | parties agreed, we proceeded. The skin was opened with a 15 blade. Dissection down to | | the cranium was performed with Bovie monopolar electrocautery. The scalp was elevated | | in the subperiosteal plane. The scalp was quite thin. The skin was elevated over the | | cranial defect with blunt dissection with Metzenbaum scissors. There was no injury to | | the brain, and we did not see any CSF during this portion of the procedure. We | | continued dissecting bluntly in this plane until we had circumferentially exposed the | | bone around the craniectomy. The custom flap was opened and brought onto the field and | | placed over the craniectomy defect, and it fit very well. We placed, on the back table, | | 3 short dog bone plates around the periphery of the cranioplasty and then affixed them | | to the [place] skull until they sat flush. Due to the concern that the cranial plating | | hardware might protrude from the skin due to how thin the skin was, we covered each of | | the plates and screws with a very small amount of Cranios bone cement that had some | | vancomycin powder mixed in. The plastic surgery team evaluated the patient's incision | | and determined the patient's scalp could be closed without any tension on the incision | | and determined that the patient's scalp was likely thick enough to accommodate the | | underlying new hardware. The wound was copiously irrigated. Hemostasis was | | re-evaluated and determined to be excellent. The wound was closed in layers with | | inverted interrupted 3-0 Vicryl sutures for the galea and a running 3-0 nylon for the | | skin. The incision was cleaned and dried and dressed with bacitracin, Telfa, and a | | cranial cap. The patient tolerated the procedure well with no apparent complications. | | All sponge, needle, and instrument counts were correct at the end of the procedure x2. | | The patient was then turned over the anesthesia team, who proceeded to extubate the | | patient and monitor her emergence. The patient was brought to the PACU for further | | recovery.Medardo Dudley MDJB/MODSNOWD: 05/08/2018 11:22:05DT: 05/08/2018 | | 13:14:51Job #: [id number], Dr. Magnolia Diego certify that I was present for and | | participated in the critical parts of the procedure. I further certify that I was the | | principal surgeon for this procedure.EZRA WOODS [id number] | | [id number], [place] [phone] | | | |I, Dr. Magnolia Diego certify that I was present for and participated in the critical parts of the procedure. I further certify that I was the principal surgeon for this procedure. | | | | | | | |MAGNOLIA DIEGO MD | |[address] | |[address] | |[id number] | |[place] [address] | |[phone] | + + CT HEAD WO CONTRAST (05/08/2018 12:45 PM PDT) + + | Specimen | + + | | + + + + + | Narrative | Performed At | + + + | EXAM: CT HEAD WITHOUT CONTRAST HISTORY: post-op | [facility] | | COMPARISON: Head CT 02/24/2018 TECHNIQUE: CT of the head without | RADIOLOGY VOICE | | intravenous contrast. FINDINGS: BRAIN: Changes of interval | RECOGNITION 2 | | right-sided synthetic graft pterional cranioplasty noted. Small amount | | | of pneumocephalus underlies the graft. Suprasellar aneurysm clips are | | | in place, similar to prior. Encephalomalacia involving the medial | | | portions of the bilateral frontal lobes, more extensive on the left | | | than the right, from prior. No intracranial hemorrhage, hydrocephalus, | | | herniation, mass or CT evidence of acute large vessel infarction. | | | SOFT TISSUES: Mild swelling and soft tissue gas overlying the | | | cranioplasty. SKULL AND SKULL BASE: No fractures or destructive | | | lesions. Mastoids and middle ears are unremarkable. FACE/ORBITS: | | | Visualized portions are unremarkable. PARANASAL SINUSES: Visualized | | | portions are unremarkable. IMPRESSION: Expected findings | | | following right pterional synthetic cranioplasty. I have | | | personally reviewed the images and, if necessary, edited the report. I | | | agree with the report as now presented. Final signature: Brandon Rondon | | | MD Claudio 05/08/2018 1:03 PM Preliminary: Brandon Rondon | | | MD Claudio Dictation initiated: Brandon Snyder MD | | | 05/08/2018 12:59 PM | | + + + + + | Procedure Note | + + | Service Account, Radiant Res In Interface - 05/08/2018 1:05 PM PDT EXAM: CT HEAD | | WITHOUT CONTRAST HISTORY: post-op COMPARISON: Head CT 02/24/2018 TECHNIQUE: CT of the | | head without intravenous contrast. FINDINGS: BRAIN:Changes of interval right-sided | | synthetic graft pterional cranioplasty noted. Small amount of pneumocephalus underlies | | the graft. Suprasellar aneurysm clips are in place, similar to prior.Encephalomalacia | | involving the medial portions of the bilateral frontal lobes, more extensive on the left | | than the right, from prior. No intracranial hemorrhage, hydrocephalus, herniation, mass | | or CT evidence of acute large vessel infarction. SOFT TISSUES: Mild swelling and soft | | tissue gas overlying the cranioplasty.SKULL AND SKULL BASE: No fractures or destructive | | lesions. Mastoids and middle ears are unremarkable.FACE/ORBITS: Visualized portions are | | unremarkable.PARANASAL SINUSES: Visualized portions are unremarkable. IMPRESSION: | | Expected findings following right pterional synthetic cranioplasty. I have personally | | reviewed the images and, if necessary, edited the report. I agree with the report as now | | presented. Final signature: Brandon Snyder MD 05/08/2018 1:03 PM Preliminary: | | Brandon Snyder MD Dictation initiated: Brandon Snyder MD 05/08/2018 12:59 | | PM | |FACE/ORBITS: Visualized portions are unremarkable. | |PARANASAL SINUSES: Visualized portions are unremarkable. | | | |IMPRESSION: | | | |Expected findings following right pterional synthetic cranioplasty. | | | |I have personally reviewed the images and, if necessary, edited the report. I agree with e report as now presented. | | | |Final signature: Brandon Snyder MD 05/08/2018 1:03 PM | |Preliminary: Brandon Snyder MD | |Dictation initiated: Brandon Sndyer MD 05/08/2018 12:59 PM | + + + +---------+ + + | Performing | Address | City/State/Zipcode | Phone Number | | Organization | | | | + +---------+ + + | [facility] | | | | | VOICE RECOGNITION 2 | | | | + +---------+ + + RENAL FUNCTION SET (NA,K,CL,CO2,BUN,CREAT,GLUC,CA,PHOS,ALB ) (05/08/2018 12:00 PM PDT) + +---------+ + + + | Component | Value | Ref Range | Performed | Pathologist | | | | | At | Signature | + +---------+ + + + | GLUCOSE, | 120 (H) | 70 - 99 mg/dL | [...] | | | LABORATORY | | | [facility] | | | SERVICES, | | | [...] + + + | TOTAL CO2, | 20 (L) | 21 - 32 mmol/L | [facility] | | | PLASMA | | | LABORATORY | | | (LAB) | | | SERVICES, | | | | | | CORE | | + +---------+ + + + | CALCIUM, | 7.4 (L) | 8.6 - 10.2 | [facility] | | | PLASMA | | mg/dL | LABORATORY | | | (LAB) | | | SERVICES, | | | | | | CORE | | + +---------+ + + + | CALCIUM(ALB | 8.3 (L) | 8.6 - 10.2 | [facility] | | | CORRECTED) | | mg/dL | LABORATORY | | | | | | SERVICES, | | | | | | CORE | | + +---------+ + + + | ALBUMIN, | 2.9 (L) | 3.5 - 4.7 g/dL | [...] | | Kidney Failure Estimated GFR greater than 60 mL/min/1.73 sq m is of | [...] | + + + + + | [facility] | [address] | [place] [address] | | | SERVICES, CORE | [address] | | | + + + + + CAPILLARY BLOOD GLUCOSE (NO CHG), POC (05/08/2018 11:35 AM PDT) + +---------+ + + + | Component | Value | Ref Range | Performed | Pathologist | | | | | At | Signature | + +---------+ + + + | BLOOD | 107 (H) | 60 - 99 mg/dL | [...] | [facility] | [address] | [place], [place] | | | [facility] | [address] | [phone] | | | TESTS | | | | + + + + + ABHunter-YUNIER GERBER (05/08/2018 9:01 AM PDT) + + + + + + | Component | Value | Ref Range | Performed | Pathologist | | | | | At | Signature | + + + + + + | PH | 7.33 (L) | 7.37 - 7.44 | [facility] - | | | ARTERIAL, | | | [facility] | | | POC | | | [facility] | | | | | | OF CARE | | | | | | TESTS | | + + + + + + | PO2 | 153 (H) | 72 - 104 mmHg | [facility] - | | | ARTERIAL, | | | [facility] | | | POC | | | [facility] | | | | | | OF CARE | | | | | | TESTS | | + + + + + + | PCO2 | 41 | 32 - 43 mmHg | [facility] - | | | ARTERIAL, | | | [facility] | | | POC | | | [place] [facility] | | | | | | OF CARE | | | | | | TESTS | | + + + + + + | TOTAL | 12.3 | 12.0 - 16.0 | [facility] - | | | HEMOGLOBIN, | | g/dL | [facility] | | | POC | | | [facility] | | | | | | OF CARE | | | | | | TESTS | | + + + + + + | O2 SAT | 99.9 (H) | 92.0 - 98.0 % | [facility] - | | | ARTERIAL, | | | [facility] | | | POC | | | [facility] | | | | | | OF CARE | | | | | | TESTS | | + + + + + + | OXYHEMOGLOB | 96.1 | 94.0 - 100 % | [facility] - | | | IN, POC | | | [facility] | | | | | | [facility] | | | | | | OF CARE | | | | | | TESTS | | + + + + + + | HEMATOCRIT, | 37.7 | 36.0 - 46.0 % | [facility] - | | | POC | | | [facility] | | | | | | [place], POINT | | | | | | OF CARE | | | | | | TESTS | | + + + + + + | POTASSIUM, | 3.5 | 3.4 - 5.0 | [facility] - | | | POC | | mmol/L | [facility] | | | | | | [facility] | | | | | | OF CARE | | | | | | TESTS | | + + + + + + | SODIUM, POC | 136 | 134 - 143 | [facility] - | | | | | mmol/L | [facility] | | | | | | [facility] | | | | | | OF CARE | | | | | | TESTS | | + + + + + + | TALON | 1.14 | 1.14 - 1.32 | [facility] - | | | IONIZED CA, | | mmol/L | [facility] | | | POC | | | [facility] | | | | | | OF CARE | | | | | | TESTS | | + + + + + + | CHLORIDE, | 108 | 97 - 108 mmol/L | [facility] - | | | POC | | | [facility] | | | | | | [facility] | | | | | | OF CARE | | | | | | TESTS | | + + + + + + | GLUCOSE, | 92 | 60 - 99 mg/dL | [facility] - | | | POC | | | [facility] | | | | | | [facility] | | | | | | OF CARE | | | | | | TESTS | | + + + + + + | HCO3 | 21.7 | 21 - 28 mmol/L | [facility] | | | ARTERIAL, | | | [facility] | | | POC | | | [facility] | | | | | | OF CARE | | | | | | TESTS | | + + + + + + | BASE EXCESS | -4.3 | | [facility] - | | | ARTERIAL, | | | [facility] | | | POC | | | [facility] | | | | | | OF CARE | | | | | | TESTS | | + + + + + + | LACTATE | 0.5 | 0.5 - 1.6 | [facility] - | | | ARTERIAL, | | mmol/L | [facility] | | | POC | | | MISTY, POINT | | | | | | OF CARE | | | | | | TESTS | | + + + + + + | METHEMOGLOB | 0.9 | 0.0 - 1.9 % | [facility] - | | | IN, POC | | | [facility] | | | | | | MISTY POINT | | | | | | OF CARE | | | | | | TESTS | | + + + + + + | PAT TEMP | 37.0 | | [facility] - | | | ART, POC | | | [facility] | | | | | | MISTY POINT | | | | | | OF CARE | | | | | | TESTS | | + + + + + + + + | Specimen | + + | Blood - Blood | | (substance) | + + + + + + + | Performing | Address | City/State/Zipcode | Phone Number | | Organization | | | | + + + + + | [facility] | [address] | [place], [place] | | | [facility] POINT OF CARE | [address] | [address] | | | TESTS | | | | + + + + + COAGULOPATHY PANEL (INR,APTT,FIBRINOGEN) (05/08/2018 8:22 AM PDT) + +-------+ + + + [...] +-------+ + + + | APTT | 31.5 | 26.0 - 36.0 | [facility] | | | | | seconds | LABORATORY | | | | | | SERVICES, | | | | | | CORE | | + +-------+ + + + | FIBRINOGEN | 402 | 150 - 450 mg/dL | [facility] [...] + + + + | [facility] | [address] | [place] [address] | | | SERVICES, CORE | [address] | | | + + + + + BASIC METABOLIC SET (NA, K, CL, TCO2, BUN, CR, GLU, CA) (05/08/2018 8:21 AM PDT) + +---------+ + + + | Component | Value | Ref Range | Performed | Pathologist | | | | | At | Signature | + +---------+ + + + | GLUCOSE, | 84 | 70 - 99 mg/dL | [facility] | | | PLASMA | | | LABORATORY | | | (LAB) | | | SERVICES, | | | | | | CORE | | + +---------+ + + + | BUN, PLASMA | 20 | 6 - 20 mg/dL | [facility] [...] | | | LABORATORY | | | AZERBAIJANI | | | SERVICES, | | | | | | CORE | | + +---------+ + + + | EGFR NON | >60 | >60 mL/min | [facility] | | | -ALEJANDRINA | | | LABORATORY | | | RICAN | | | SERVICES, | | | | | | CORE | | + +---------+ + + + | SODIUM, | 135 (L) | 136 - 145 | [facility] | [...] +---------+ + + + | CHLORIDE, | 107 | 97 - 108 mmol/L | [facility] [...] | | Kidney Failure Estimated GFR greater than 60 mL/min/1.73 sq m is of | [...] + + + + | [facility] | [address] | [place] [address] | | | SERVICES, CORE | [address] | | | + + + + + CBC AND AUTO DIFF (05/08/2018 7:42 AM PDT) + + + + + + | Component | Value | Ref Range | Performed | Pathologist | | | | | At | Signature | + + + + + + | WHITE CELL | 7.98 | 3.50 - 10.80 | [facility] | | | COUNT | | K/cu mm | LABORATORY | | | | | | SERVICES, | | | | | | CORE | | + + + + + + | RED CELL | 4.65 | 4.00 - 5.20 | [facility] | | | COUNT | | M/cu mm | LABORATORY | | | | | | SERVICES, | | | | | | CORE | | + + + + + + | HEMOGLOBIN | 14.2 | 12.0 - 16.0 | [facility] | | | | | g/dL | LABORATORY | | | | | | SERVICES, | | | | | | CORE | | + + + + + + | HEMATOCRIT | 42.9 | 36.0 - 46.0 % | [facility] | | | | | | LABORATORY | | | | | | SERVICES, | | | | | | CORE | | + + + + + + | MCV | 92.3 | 80.0 - 100.0 fL | [facility] [...] + + + + | PLATELET | 258 | 150 - 400 K/cu | [facility] [...] + + + + + + | NEUTROPHIL | 60.9 | 50.0 - 70.0 % | [facility] | | | % | | | LABORATORY | | | | | | SERVICES, | | | | | | CORE | | + + + + + + | LYMPHOCYTE | 26.4 | 18.0 - 42.0 % | [facility] | | | % | | | LABORATORY | | | | | | SERVICES, | | | | | | CORE | | + + + + + + | MONOCYTE % | 9.0 | 3.5 - 9.0 % | [facility] | | | | | | LABORATORY | | | | | | SERVICES, | | | | | | CORE | | + + + + + + | EOS % | 2.6 | 1.0 - 3.0 % | [facility] | | | | | | LABORATORY | | | | | | SERVICES, | | | | | | CORE | | + + + + + + | BASO % | 0.8 | 0.0 - 2.0 % | [facility] | | | | | | LABORATORY | | | | | | SERVICES, | | | | | | CORE | | + + + + + + | IG% | 0.3Comment: Increased | 0.0 - 1.0 % | [facility] | | | | immature granulocytes | | LABORATORY | | | | (IG) define a left | | SERVICES, | | | | shift. Immature | | CORE | | | | granulocytes (IG) are an | | | | | | automated count of | | | | | | metamyelocytes, | | | | | | myelocytes and | | | | | | promyelocytes. Bands | | | | | | are not included in the | | | | | | IG count. Bands are | | | | | | included in the | | | | | | neutrophil count. | | | | + + + + + + | NEUTROPHIL | 4.86 | 1.80 - 7.70 | [facility] | | | # | | K/cu mm | LABORATORY | | | | | | SERVICES, | | | | | | CORE | | + + + + + + | LYMPHOCYTE | 2.11 | 1.00 - 4.80 | [facility] | | | # | | K/cu mm | LABORATORY | | | | | | SERVICES, | | | | | | CORE | | + + + + + + | MONOCYTE # | 0.72 | 0.10 - 0.90 | [facility] | | | | | K/cu mm | LABORATORY | | | | | | SERVICES, | | | | | | CORE | | + + + + + + | EOS # | 0.21 | 0.00 - 0.50 | [facility] | | | | | K/cu mm | LABORATORY | | | | | | SERVICES, | | | | | | CORE | | + + + + + + | BASO # | 0.06 | 0.00 - 0.10 | [facility] | | | | | K/cu mm | LABORATORY | | | | | | SERVICES, | | | | | | CORE | | + + + + + + | IG# | 0.02 | 0.00 - 0.10 | [facility] | | | | | K/cu mm | LABORATORY | | | | | | SERVICES, | | | | | | CORE | | + + + + + + + + | Specimen | + + | Blood - Blood | | (substance) | + + + + + | Narrative | Performed At | + + + | Increased immature granulocytes (IG) define a left shift. | [facility] | | Immature granulocytes (IG) are an automated count of metamyelocytes, | LABORATORY | | myelocytes and promyelocytes. Bands are not included in the IG count. | SERVICES, CORE | | Bands are included in the neutrophil count. | | + + + + + + + + | Performing | Address | City/State/Zipcode | Phone Number | | Organization | | | | + + + + + | [facility] | [address] | [place] [address] | | | SERVICES, CORE | [address] | | | + + + + + ANTIBODY SCREEN (05/08/2018 7:42 AM PDT) + + + + [...] [facility] | [address] | [place] [address] | | | SERVICES, | [address] | | | | TRANSFUSION MEDICINE | | | | + + + + + ABO & RH TYPE (05/08/2018 7:42 AM PDT) + + + + [...] + + + + | [facility] | [address] | [place] [address] | | | SERVICES, | [address] | | | | TRANSFUSION MEDICINE | | | | + + + + + CAPILLARY BLOOD GLUCOSE (NO CHG), POC (05/08/2018 7:37 AM PDT) + +-------+ + + + | Component | Value | Ref Range | Performed | Pathologist | | | | | At | Signature | + +-------+ + + + | BLOOD | 82 | 60 - 99 mg/dL | [facility] [...] [facility] | [address] | [place], [place] | | | [facility]ILL, [facility] | [address] | [address] | | | TESTS | | | | + + + + + INTRAPROCEDURE IMAGING (05/08/2018 7:07 AM PDT) + + | Specimen | + + | | + + + + + | Narrative | Performed At | + + + | See admission or procedure notes for details of any intraprocedure | | | images obtained. | | + + + CARDIOLOGY (05/08/2018 12:00 AM PDT) + + + | [...] | | | + +--------+ +--------+------+------+ | ascorbic acid (vitamin C) | Given | 05/11/19 | 500 mg | | | | tablet 500 mg 500 mg, oral, | | 19 9:02 | | | | | TWICE DAILY, 60 doses, First dose | | AM PDT | | | | | on Tue05/09/18 at 1145, Last | | | | | | | dose on Tue06/07/18 at 2100 | | | | | | + +--------+ +--------+------+------+ +-------+ +--------+---+---+ | Given | 05/10/19 | 500 mg | | | | | 19 8:29 | | | | | | PM PDT | | | | +-------+ +--------+---+---+ | Given | 05/10/19 | 500 mg | | | | | 19 1:06 | | | | | | PM PDT | | | | +-------+ +--------+---+---+ +---+---+ | | | +---+---+ + +-------+ +-------+---+---+ | atorvastatin (LIPITOR) tablet | Given | 05/11/19 | 80 mg | | | | 80 mg 80 mg, oral, DAILY, First | | 19 9:02 | | | | | dose on 05/08/18 at 1100, | | AM PDT | | | | | Until Discontinued | | | | | | + +-------+ +-------+---+---+ +-------+ +-------+---+---+ | Given | 05/10/19 | 80 mg | | | | | 19 7:57 | | | | | | AM PDT | | | | +-------+ +-------+---+---+ | Given | 05/09/19 | 80 mg | | | | | 19 4:30 | | | | | | PM PDT | | | | +-------+ +-------+---+---+ +---+---+ | | | +---+---+ + +-------+ +---------+---+ + | bacitracin (BACIIM) injection | Given | 05/09/19 | 50,000 | | Surgical | | INTRAPROCEDURE PRN, Starting Tue | | 19 10:09 | Units | | Site | | 05/08/18 at 1009, Until Mon | | AM PDT | | | | | 05/08/18 at 1120 | | | | | | + +-------+ +---------+---+ + +---+---+ | | | +---+---+ + +-------+ +---------+---+ + | bacitracin ointment | Given | 05/09/19 | 1 strip | | Surgical | | INTRAPROCEDURE PRN, Starting Mon | | 19 10:46 | | | Site | | 05/08/18 at 1046, Until Mon | | AM PDT | | | | | 05/08/18 at 1120 | | | | | | + +-------+ +---------+---+ + + +---+ | | | + +---+ | ipratropium-albuterol (CRISTHIANO-NEB) | | | nebulizer solution 3 mL 3 mL, | | | inhalation, EVERY 6 HOURS | | | NEEDED, Starting 05/09/18 at | | | 0830, Until 05/10/18 at 1643, | | | sob | | + +---+ | | | + +---+ + +-------+ +------+---+---+ | lisinopril (PRINIVIL) tablet 5 | Given | 05/11/19 | 5 mg | | | | mg 5 mg, oral, DAILY, First dose | | 19 9:02 | | | | | on 05/08/18 at 1100, Until | | AM PDT | | | | | Discontinued | | | | | | + +-------+ +------+---+---+ +-------+ +------+---+---+ | Given | 05/10/19 | 5 mg | | | | | 19 7:57 | | | | | | AM PDT | | | | +-------+ +------+---+---+ +---+---+ | | | +---+---+ + +-------+ +-------+---+---+ | metoprolol succinate | Given | 05/11/19 | 50 mg | | | | (TOPROL-XL) tablet 50 mg 50 mg, | | 19 9:02 | | | | | oral, DAILY, First dose on Mon | | AM PDT | | | | | 05/08/18 at 1100, Until | | | | | | | Discontinued | | | | | | + +-------+ +-------+---+---+ +-------+ +-------+---+---+ | Given | 05/10/19 | 50 mg | | | | | 19 7:57 | | | | | | AM PDT | | | | +-------+ +-------+---+---+ +---+---+ | | | +---+---+ + + + +---------+---+--------+ | nicotine (NICOTROL) 21 mg/24 hr | Applied | 05/11/19 | 1 patch | | Right | | patch 1 patch 1 patch, | Patch | 19 9:00 | | | Arm | | transdermal, DAILY, First dose on | | AM PDT | | | | | 05/08/18 at 1315, Until | | | | | | | Discontinued | | | | | | + + + +---------+---+--------+ + + +---------+---+ + | Applied Patch | 05/10/19 | 1 patch | | Left Arm | | | 19 7:57 | | | | | | AM PDT | | | | + + +---------+---+ + | Applied Patch | 05/09/19 | 1 patch | | Right | | | 19 4:30 | | | Arm | | | PM PDT | | | | + + +---------+---+ + + +---+ | | | + +---+ | ondansetron (ZOFRAN) injection | | | 4 mg 4 mg, intravenous, EVERY 8 | | | HOURS NEEDED, Starting Mon | | | 05/08/18 at 2223, Until Wed | | | 05/10/18 at 1643, nausea/vomiting, | | | first line | | + +---+ | | | + +---+ | oxyCODONE (immediate release) | | | (ROXICODONE) tablet 5-15 mg 5-15 | | | mg, oral, EVERY 3 HOURS | | | NEEDED, Starting 05/08/18 at | | | 1311, Until 05/10/18 at 1643, | | | moderate pain | | + +---+ | | | + +---+ | oxyCODONE (immediate release) | | | (ROXICODONE) tablet 5-15 mg 5-15 | | | mg, feeding tube, EVERY 3 HOURS | | | NEEDED, Starting Tue05/08/18 | | | at 1311, Until Tue05/10/18 at | | | 1643, moderate pain, when unable | | | to take oral | | + +---+ | | | + +---+ | senna-docusate (SENOKOT S) | | | 8.6-50 mg 1 tablet 1 tablet, | | | oral, TWICE DAILY NEEDED, | | | Starting Tue05/09/18 at 1430, | | | Until Tue05/10/18 at 1643, | | | constipation | | + +---+ | | | + +---+ + +-------+ +-------+---+---+ | spironolactone (ALDACTONE) | Given | 05/11/19 | 25 mg | | | | tablet 25 mg 25 mg, oral, DAILY, | | 19 9:02 | | | | | First dose on Tue05/08/18 at | | AM PDT | | | | | 1100, Until Discontinued | | | | | | + +-------+ +-------+---+---+ +-------+ +-------+---+---+ | Given | 05/10/19 | 25 mg | | | | | 19 7:57 | | | | | | AM PDT | | | | +-------+ +-------+---+---+ | Given | 05/09/19 | 25 mg | | | | | 19 4:30 | | | | | | PM PDT | | | | +-------+ +-------+---+---+ +---+---+ | | | +---+---+ + +-------+ +--------+---+ + | thrombin 5000 unit topical | Given | 05/09/19 | 5,000 | | Surgical | | solution INTRAPROCEDURE PRN, | | 19 10:45 | Units | | Site | | Starting Tue05/08/18 at 1045, | | AM PDT | | | | | Until Tue05/08/18 at 1120 | | | | | | + +-------+ +--------+---+ + +---+---+ | | | +---+---+ + +-------+ +-------+---+ + | vancomycin (VANCOCIN) injection | Given | 05/09/19 | 25 mg | | Surgical | | INTRAPROCEDURE PRN, Starting | | 19 11:07 | | | Site | | 05/08/18 at 1107, Until Mon | | AM PDT | | | | | 05/08/18 at 1120 | | | | | | + +-------+ +-------+---+ + +---+---+ | | | +---+---+ + +-------+ + +---+---+ | zinc sulfate (ORAZINC) tablet | Given | 05/11/19 | 25 mg | | | | 25 mg elemental 25 mg elemental | | 19 9:02 | elementa | | | | (110 mg total salt), oral, DAILY, | | AM PDT | l | | | | 14 doses, First dose on Tue | | | | | | | 05/09/18 at 1145, Last dose on Tue | | | | | | | 05/22/18 at 0900 | | | | | | + +-------+ + +---+---+ +-------+ + +---+---+ | Given | 05/10/19 | 25 mg | | | | | 19 1:06 | elementa | | | | | PM PDT | l | | | +-------+ + +---+---+ +---+---+ | | | +---+---+ documented in this encounter
--- OUTSIDE RECORDS SUMMARY | ~2019-10-22 | XMS | Encounter Summary ---
Demographics + + + | Address | [address] | | | [place] [address] | + + + | Home Phone | | + + + | Preferred Language | Unknown | + + + | Marital Status | | + + + | Church Affiliation | Unknown | + + + | Race | White | + + + | Ethnic Group | Not or | + + + Author + + + | Author | [facility] | | | and [place] | + + + | Organization | [facility] | | [...] Providers + +------+ + | Care Rotary Screen Printing Machine Operator Name | Role | Phone | + +------+ + PCP | Unavailable | + +------+ + Encounter Details +--------+ + + + + | Date | Type | Department | Care Team | Description | +--------+ + + + + | 07/01/ | Hospital | [facility] | | | | 1991 | Encounter | [facility] | | | | | | CENTER [address] | | | | | | [place] | | | | | | [address] | | | | | | [phone] | | | +--------+ + + + [...]
--- OUTSIDE RECORDS SUMMARY | ~2019-10-22 | XMS | Encounter Summary ---
Demographics + + + | Address | [address] | | | [place] [address] | + + + | Home Phone [...] Team Providers + +------+ + | Care Pillowcase Maker Name | Role | Phone | + +------+ + | Anil Baker DO | PCP | | + +------+ + Reason for Visit + + + | Reason | Comments | + + + | New patient | | | consultation | | + + + Consultation (Routine) +--------+--------+ + + + + | Status | Reason | Specialty | Diagnoses / | Referred By | Referred To | | | | | Procedures | Contact | Contact | +--------+--------+ + + + + | Closed | | Otolaryngolog | Diagnoses | Doug, | Ent Head | | | | y | Swelling, | Remington Santos MD | Neck Ppv | | | | | mass, [place] | [address] | [address] | | | | | lump in head | [address] | [address] | | | | | and neck | [address] | Physician's | | | | | | [place], | [place], | | | | | | [place] [address] | 2nd floor | | | | | | Phone: | [place], [place] | | | | | | [phone] | [address] | | | | | | Fax: | Phone: | | | | | | [phone] | [phone] | | | | | | | Fax: | | | | | | | [phone] | +--------+--------+ + + + + Encounter Details +--------+---------+ + + + | Date | Type | Department | Care Team | Description | +--------+---------+ + + + | 05/28/ | Office | Otolaryngology | Beny Cruz, | Benign neoplasm of | | 2015 | Visit | Head and Neck | MD [address] | major salivary | | | | Surgery Services at | [facility] [address] | glands (Primary Dx) | | | | PPV [address] | [place], [place] | | | | | [address] | [address] | | | | | Physician's | [phone] | | | | | [place], [facility] floor | | | | | | [place], [place] | | | | | | [address] | | | | | | [phone] | | | +--------+---------+ + + + [...] + + + | Blood Pressure | 144/85 | 05/28/2014 12:11 PM | | | | | PDT | | + + + + + | Pulse | 88 | 05/28/2014 12:11 PM | | | | | PDT [...] + + + + | Weight | 53.8 kg (118 lb 8 | 05/28/2014 12:11 PM | | | | oz) | PDT | | + + + + + | Height | - | - | | + + + + + | Body Mass Index | 23.93 | 04/11/2008 2:05 PM | | | | | PST | | + + + + + documented in this encounter Progress Notes Beny Cruz MD - 06/06/2014 8:[address] Sunshine's note for the complete de tails of the history and physical exam. I reviewed the resident's findings and repeated thes e components of the physical exam: complete history, review of systems, review of medication s, complete examination of the head and neck and review of imaging and pathology. 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 LEHR TENDER shunt apparent under skin coursing through posterior [...] subject to change, based on heidi aquino. 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
--- OUTSIDE RECORDS SUMMARY | ~2019-10-22 | XMS | Encounter Summary ---
Demographics + + + | Address | [address] | | | [place] [address] | + + + | Home Phone | | + + + | Preferred Language | Unknown | + + + | Marital Status | | + + + | Scientologist Affiliation | MET | + + + [...] Team Providers + +------+ + | Care Tool Maintenance Technician Name | Role | Phone | + +------+ + PCP | Unavailable | + +------+ + Reason for Visit + + + | Reason | Comments | + + + | Postoperative visit | | + + + Encounter Details +--------+---------+ + + + | Date | Type | Department | Care Team | Description | +--------+---------+ + + + | 11/19/ | Office | Neurosurgery at | Magnolia Diego MD | SAH (Subarachnoid | | 2007 | Visit | [facility] [address] | [address] | Hemorrhage) ([facility]); | | | | [facility] | [place], [place] | HTN; COPD | | | | [facility], | [address] | | | | | [facility] | [phone] | | | | | floor [place], [place] | | | | | | [address] | | | | | | [phone] | | | +--------+---------+ + + + [...] +---------+ + + | Blood Pressure | 105/64 | 11/20/2007 1:03 PM | | | | | PDT | | + +---------+ + + | Pulse | 91 | 11/20/2007 1:03 PM | | | | | PDT [...] + documented in this encounter Progress Notes Magnolia Diego - 11/20/2007 1:41 PM PDT57 year old lady with status postop clipping of ACom artery aneurysm is here for followup visit. Her grade was HH4 and she had significant recove ry form that. She is being able walk, talk, FORBES. She has some cognitive functions difficulti es which I believe they will improve with time. Her wound is looking healed completely. I want her to come back in 3months. MAGNOLIA DIEGO MD NEUROSURGERY [address] [place] [address] [facility], [address] [place] [address] documented in this encounter Miscellaneous Notes Alyssa Maria - 11/27/2007 7:52 AM PDTAssociated Order(s): ORDERS OTHER Reji grant signed by Alyssa Liu at 11/20/2007 12:00 AM PDTdocumented in this encounter Plan of Treatment Not on filedocumented as of this encounter Procedures + +--------+ + + + | Procedure Name | Priori | Date/Time | Associated Diagnosis | Comments | | | ty | | | | + +--------+ + + + | ORDERS OTHER | | 11/27/2007 | | Results for this | | | | 7:52 AM | | procedure are in the | | | | PDT | | results section. | + +--------+ + + + documented in this encounter Results ORDERS OTHER (11/27/2007 7:52 AM PDT) + + + | Narrative | Performed At | + + + | | | + + + + + | Procedure Note | + + | Alyssa Liu - 11/27/2007 7:52 AM PDT | + + documented in this encounter Visit Diagnoses + + | Diagnosis | + + | SAH (subarachnoid hemorrhage) (HCC) Subarachnoid hemorrhage | + + | HTN Unspecified essential hypertension | + + | COPD Chronic airway obstruction, not elsewhere classified | + + documented in this encounter"
--- OUTSIDE RECORDS SUMMARY | ~2019-10-22 | XMS | Encounter Summary ---
Demographics + + + | Address | [address] | | | [place] [address] | + + + | Home Phone | | + + + | Preferred Language | Unknown | + + + | Marital Status | | + + + | Pentecostalism Affiliation | MET | + + + [...] Team Providers + +------+ + | Care Ticket Sales Agent Name | Role | Phone | [...] | | | | | site, | [place], [place] | | | | | | unspecified | [address] | | | | | | type (HCC) | Phone: | | | | | | Skull defect | [phone] | | | | | | Procedures | Fax: | | | | | | [place] | [phone] | | | | | | STEREOTACTIC [...] | | | | | site, | [place], [place] | | | | | | unspecified | [address] | | | | | | type (HCC) | Phone: | | | | | | Skull defect | [phone] | | | | | | Procedures | Fax: | | | | | | [place] | [phone] | | | | | | STEREOTACTIC [...] | 2019 | Encounter | Services at [facility] | [facility] [address] | | | | | [address] | [place] | | | | | [place] | [place], [place] | | | | | [facility], [address] [place] [address] | [address] | | | | | [place], [place] | [phone] | | | | | [address] | | | | | | [phone] | | | +--------+ + + + [...] PM Dictation initiated: | | | Yeyo aClhoun MD 02/24/2018 11:46 AM | | + [...] [facility] | [address] | [place], [place] | | | [facility] | [address] | [address] | | | TESTS | | | [...]
--- OUTSIDE RECORDS SUMMARY | ~2019-10-22 | XMS | Encounter Summary ---
Demographics + + + | Address | [address] | | | [place] [address] | + + + | Home Phone [...] Team Providers + +------+ + | Care Insulator Tester Name | Role | Phone | + +------+ + | Mary Vazquez PA-C | PCP | | + +------+ + Encounter Details +--------+--------+ + + + | Date | Type | Department | Care Team | Description | +--------+--------+ + + + | 12/02/ | Intake | Transfer Center | | | | 2018 | | [address] | | | | | | [place], | | | | | | [place] [address] | | | +--------+--------+ + + + [...]
--- OUTSIDE RECORDS SUMMARY | ~2019-10-22 | XMS | Encounter Summary ---
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 | Role | Phone | + +------+ + PCP | Unavailable | + +------+ + Reason for Referral Consult to [place] (Routine) +--------+--------+ + + + + | Status | Reason | Specialty | Diagnoses / | Referred By | Referred To | | | | | Procedures | Contact | Contact | +--------+--------+ + + + + | Closed | | Neurological | Diagnoses | Cecile, | Cecile, | | | | Surgery | Obstructive | MD Magnolia | MD Magnolia | | | | | | [address] | [address] | | | | | hydrocephalu | Ave | Ave | | | | | s (HCC) | [place], [place] | [place], [place] | | | | | Procedures | [address] | [phone] | | | | | REQUEST TO | Phone: | Phone: | | | | | SURGERY | [phone] | [phone] | | | | | LICENSED PSYCHOLOGIST | Fax: | Fax: | | | | | [place] [facility] | [phone] | [phone] | | | | | SHUNT:VENTRI | | | | | | | C-PERITONEAL | | | +--------+--------+ + + + + Reason for Visit + + + | Reason | Comments | + + + | Follow-up in | | | outpatient clinic | | + + + Encounter Details +--------+---------+ + + + | Date | Type | Department | Care Team | Description | +--------+---------+ + + + | 03/18/ | Office | Neurosurgery at | Magnolia Diego MD | Communicating | | 2008 | Visit | [facility] [address] | [address] | Hydrocephalus; [facility] | | | | [facility] | [facility] [place] | (Subarachnoid | | | | [facility], | [address] | Hemorrhage) (HCC) | | | | [facility] | [phone] | | | | | floor [place], [place] | | | | | | [address] | | | | | | [phone] | | | +--------+---------+ + + + [...] + + + | Blood Pressure | 119/53 | 03/18/2008 3:00 PM | | | | | PST | | + + + + + | Pulse | 93 | 03/18/2008 3:00 PM | | | | | PST | | + + + + + | Temperature | 36.7 C (98.1 F) | 03/18/2008 3:00 PM | | | | | PST [...] + documented in this encounter Progress Notes Marlene Martinez PA - 03/18/2008 4:09 PM PST Addended by: MARLENE MARTINEZ on: 03/18/2008 4:09 :18 PM Modules accepted: Orders Magnolia Valladares MD - 03/18/2008 3:46 PM PST58 year old lady with 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 She is complaining of headache, balance problems. Her CT showed hydrocephalus. I schedule h er for programmable shunt placement in couple weeks.We need to have blood workup during PAT clinic to rule out any possibility of infection. A complete discussion regarding the surgical procedure planned was discussed. This include d a description of the procedure in detail and the risks and benefits of the surgery. All q uestions solicited were answered. This discussion included risks of anesthesia, cardiac and pulmonary risks, infection, stroke, and neurological deficits. The patient has agreed to raine barbosa. MAGNOLIA DIEGO MD NEUROSURGERY [address] Mailcode: [id number] [address] documented in this encou nter Miscellaneous Notes Scan - Noe, Faculty - 04/23/2008 8:23 PM PST can - Noe, Faculty - 04/09/2008 9:15 AM PSTAssociated Or rubi(s): LAB REPORTS can - Noe, Faculty - 04/01/2008 7:33 AM PSTAssociated Order(s): ORDERS OTHER Electronically s igned by Faculty Other at 03/18/2008 12:00 AM PSTScan Pj Liu, Faculty - 03/21/2008 8:02 AM PST documented i n this encounter Plan of Treatment Not on filedocumented as of this encounter Procedures + +--------+ + + + | Procedure Name | Priori | Date/Time | Associated Diagnosis | Comments | | | ty | | | | + +--------+ + + + | LAB REPORTS | | 04/09/2008 | | Results for this | | | | 9:15 AM | | procedure are in the | | | | PST | | results section. | + +--------+ + + + | ORDERS OTHER | | 04/01/2008 | | Results for this | | | | 7:33 AM | | procedure are in the | | | | PST | | results section. 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
--- OUTSIDE RECORDS SUMMARY | ~2019-10-22 | XMS | Encounter Summary ---
Demographics + + + | Address | [address] | | | [place] [address] | + + + | Home Phone [...] Team Providers + +------+ + | Care Civil Defense Director Name | Role | Phone | [...] | Closed | | | | | | +--------+--------+ + + + + Encounter Details +--------+ + + + + | Date | Type | Department | Care Team | Description | +--------+ + + + + | 06/07/ | Anesthesia | 6A Intra Op [id number] | Radhika Drake MD | | | 2014 | Event | [facility] | [address] | | | | | [facility] | [facility] | | | | | Hospital Admitting | [place] [address] | | | | | Desk Located on the | [phone] | | | | | 9th floor | | | | | | [place], [place] | Matthew Smyth MD | | | | | [address] | | | +--------+ + + + + Anesthesia Record + + + + + | Procedure Name | Responsible | Anesthesia Start | Anesthesia Stop Time | | | Anesthesiologist | Time | | + + + + + | RIGHT SUPERFICIAL | Radhika Drake MD | 06/07/14723 | 06/07/14917 | | PAROTIDECTOMY WITH | | | | | NERVE PRESERVATION | | | | | (Right Neck) | | | | + + + + + +----+---+ + + | Da | T | Event | Comment | | te | i | | | | | m | | | | | e | | | +----+---+ + + | 04 | 0 | Eq Check | Anesthesia machine checked Equipment verified | | /1 | 6 | | | | 7/ | 5 | | | | 20 | 0 | | | | 15 | | | | +----+---+ + + | | 0 | | | | | 7 | | | | | 0 | [...] +----+---+ + + | | 0 | Preprocedur | Pt ID confirmed, informed consent obtained, insertion site | | | 7 | e Checklist | marked, equipment available | | | 1 | | | | | 6 | | | +----+---+ + + | | 0 | An Start | | | | 7 | | | | | 2 | | | | | 4 | | | +----+---+ + + | | 0 | An Start | | | | 7 | Data | | | | 2 | | | | | 8 | | | +----+---+ + + | | 0 | Vitals | Monitors applied Vital signs checked Patient ready for anesthesia | | | 7 | Checked | | | | 3 | | | | | 7 | | | +----+---+ + + | | 0 | Std. Airway | | | | 7 | Mgt. | | | | 4 | | | | | 0 | | | +----+---+ + + | | 0 | Ready | | | | 7 | | | | | 4 | | | | | 5 | | | +----+---+ + + | | 0 | Abx | | | | 7 | Administere | | | | 4 | d | | | | 6 | | | +----+---+ + + | | 0 | Local | | | | 7 | Anesthetic | | | | 4 | by Surgeon | | | | 7 | | | +----+---+ + + | | 0 | Timeout | | | | 7 | | | | | 5 | | | | | 4 | | | +----+---+ + + | | 0 | Incision | | | | 7 | | | | | 5 | | | | | 5 | | | +----+---+ + + | | 0 | Surgery end | | | | 9 | | | | | 0 | | | | | 5 | | | +----+---+ + + | | 0 | An Extubate | Neuromuscular function Intact. Pharynx suctioned. Patient obeys | | | 9 | | commands. Adequate pulmonary mechanics. | | | 1 | | | | | 0 | | | +----+---+ + + | | 0 | an stop | | | | 9 | data | | | | 1 | | | | | 1 | | | +----+---+ + + | | 0 | Anesthesia | | | | 9 | End | | | | 1 | | | | | 8 | | | +----+---+ + + +------+ | Meds | +------+ + +---------+ | Name | Total | + +---------+ | midazolam | 1 mg | + +---------+ | fentaNYL | 250 mcg | + +---------+ | lidocaine 2% | 60 mg | + +---------+ | propofol | 130 mg | + +---------+ | rocuronium | 40 mg | + +---------+ | PHENYLephrine | 200 mcg | + +---------+ | ondansetron | 4 mg | + +---------+ | neostigmine | 1 mg | + +---------+ | glycopyrrolate | 0.2 mg | + +---------+ | HYDROmorphone | 0.2 mg | + +---------+ | ceFAZolin (ANCEF) injection 1 g | 1 g | + +---------+ | dexamethasone | 4 mg | + +---------+ | LR | 0 mL | + +---------+ + + | Name | + + | Insp Iso | + + | Et Iso | + + | EtN2O % | + + | Insp N2O % | + + | O2 Flow Rate (Total Liters) | + + | N2O Flow Rate (l/min) | + + | Air Flow rate (L/min) | + + + + | No [...] | 03/04/08; 2199; L neck abcess; | 03/04/082199 by | 12/09/16 1622 by | | [...] frontal; Right:; | 04/12/08 0000 by | 12/09/161621 by | | D - | frontal [...] (Automatic | 06/07/14 0000 by | 12/09/16 162 by | | D - | cleanup [...] neck; | 06/07/14 0000 by | 12/09/16 162 by | | D - | 12/09/16 (Automatic cleanup per | July Henry RN | Discontinued After | | Incisi | RA 3006--contact admin for | | Discharge | | on | questions.); 1622 (Automatic | | | | | cleanup per RA 3006--contact | | | | | admin for questions.) | | | +--------+ + + + | RETIRE | 06/07/14; 0703; 06/08/14; 1030; | 06/07/14 0703 by | 06/08/14 1030 by | | D - | No; right hand; 20; Right; Hand; | KOKO Hoang | Almita Butler, | | Periph | None; No; Positive; 1 | | RN | | eral | | | | | Line | | | | +--------+ + + [...] encounter OR Notes Anesthesia Postprocedure Evaluation - Matthew Smyth MD - 06/07/2014 9:51 AM PDTFormatti ng of this note might be different from the original. 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 Senior Economist shunt Tympanoplasty Right 1987 Lumpectomy of left breast 1978 Temp: 36.8 C (98.2 F) Pulse: 74 Resp: 22 BP: 119/51 mmHg SpO2: 98 % Evaluation Patient personally seen and evaluated for recovery from anesthesia care, VS including tempe rature and hydration status are normal and ROS including card, resp, Neuro, and GI w/o evide nce of adverse effects Complications nesthesia Preproced ure Evaluation - Matthew Smyth MD - 06/07/2014 7:09 AM PDT Cielo Bell [id number] Allergies Allergen Reactions [place] Tar Hives Betadine [Povidone-Iodine (With Soap)] Unknown Cipro [Ciprofloxacin] Nausea and Vomiting Codeine Hcl Nausea and Vomiting Sulfa (Sulfonamide Antibiotics) Erythema NPO:NPO Status: mn Last Vitals: Temp: 36.5 C (97.7 F) Pulse: 75 Resp: 15 BP: 137/73 mmHg SpO2: 94 % Preg Status/LMP: Patient Active Problem List Diagnosis COPD SAH (Subarachnoid Hemorrhage) HTN Chronic Pain Otitis Media 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 Past Surgical History Procedure Laterality Date Partial thyroidectomy Right Hysterectomy Cholecystecomy Bladder suspension 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 Senior Economist shunt Tympanoplasty Right 1987 Lumpectomy of left breast 1978 Current Medication List Not on File Lab Results Component Value Date RATE 82 06/06/2014 ATRIALRATE 82 06/06/2014 IN 168 06/06/2014 QRS 90 06/06/2014 QT 388 06/06/2014 QTC 462 04/12/2008 PAXIS 68 06/06/2014 RAXIS 18 06/06/2014 TAXIS 55 06/06/2014 EKGDX Value: Normal sinus rhythm Normal ECG "I have personally interpreted this report, e ximena alone or with a trainee." Confirmed by KAREN ROMERO ([id number]) on 12-Apr-2008 15:40:13 Preoperative Adult Anesthesia Plan Last edited 06/07/14 0708 by Matthew Smyth MD ROS Pertinent HPI: From preop note: "Cielo Bell is a 64 y F with a right parotid neck mass here for preop evaluation. The mass causes problems swallowing, coughing, and makes her feel embarrassed in public. No headache; no weight loss or night sweats. Still smoking 1.5-2 ppd History of Stroke (subarachnoid hemorrhage) Hx of MRSA" Pulmonary: cough chronic no URI COPD mild No dx of sleep apnea Risks factors for sleep apnea: Age>50 Pt at low risk of MELISSA Cardiovascular: Climbs 2 flights of stairs without CP/Palpitations/SOB/OVIDEO/dizziness Functional Capacity: Moderate + dyspnea on exertion - PND, palpitations, chest pressure and syncope no CAD no CHF no hypertension (hx of HTN; states resolved after stroke and not medicated at this time) no pacemaker GI/Hepatic: no GERD No liver disease no hepatitis : no renal failure Endo: no Diabetes: Neurological: no seizures no HX CORTICOSTEROID no psychiatric problem no pain Current Pain Level: Current pain level: 0 MS: no arthritis Heme/Onc: Pt. has: no active bleeding no Bleeding diathesis / thrombotic bleeding Previous Transfusions: transfusion hx Hx:Yes Malignancy: no cancer, Location: Metastasis: Skin: No open wounds or sores Hx of MRSA/VRE/Active skin infection (2007; states aquired in the hospital when she had her SAH) Physical Exam General: Patients general appearance: Healthy, Alert, No distress, Cooperative and Smiling Head & Neck/Airway: Neck ROM: full Neck Circumference: 34 cm. Dentition: dentures-upper and missing teeth Dental risk discussed with/pt : Yes Dentition Comments: bottom sides Cormier: No Mallampati: II C-Spine: normal Neck Anatomy: Normal Jaw Protrusion: Normal, lower incisors can protrude past upper incisors Lung Exam: breath sounds normal Cardiac: Rhythm: regular Rate: normal murmur, systolic click, peripheral edema and weak pulses Abdominal: General Findings: Deferred Musculoskeletal: Findings: tone normal and normal strength Neuro/Psych: alert Findings: Motor 5/5 strength globally with normal tone, No tremor, Alert, oriented to person, place, time and Normal affect Integument: - open wounds Color: pink Texture: Skin texture - normal Turgor: turgor normal Implants: shunt, Comments: PERMASTONE APPLICATOR shunt right side with skull defect. No known history of personal or family problems with anesthesia. 0708 Anesthesia Plan Comments ASA ASA 3 NPO Status NPO Status: NPO by protocol Monitors/Lines to be used Standard Anesthetic Consideration PONV prophylaxis, Premeds, Preop antibiotics, IV when asleep and Decadron Induction intravenous induction Anesthetic Technique General; Post-Op Pain Plan IV analgesics; Blood Products None; Interpretive Services Informed Consent PARQ discussed with: patient, Procedures, Alternatives, Risks, and Questions discussed and Risk/benefit of anesthesia plan and blood product discussed ; ; Date Consent Series Given: 06/07/2014 7:09 AM Code status in OR Patients Code Status in OR: FULL 06/07/2014 7:09 AM documented in this enc ounter Miscellaneous Notes Ane airway standard - Matthew Smyth MD - 06/07/2014 7:57 AM PDTProcedure Reason for Intubation: For surgical procedure, Location Performed: OR , Patient was preoxyg enated Mask Ventilation Grade 2 - Ventilated by mask with oral airway/adjuvant Rapid Sequence Induction: No Intubation Blade type: Nidhi , Blade size: 3, Atraumatic laryngoscopy: Atraumatic Laryngoscopy, In tubation adjuncts: N/A , Laryngoscopic view: Grade I, Fiberoptics used: N/A , Number of Atte mpts: 1, Positive for EtCO2: Yes, Breath sounds: Bilateral and equal ETT Ett Adult: Single-lumen cuffed ETT Size: 7 ETT secured with: adhesive tape Depth at : 22 cm Airway leak: No LMA Narrative Attending physically present Attending: RADHIKA DRAKE Performed by Resident MATTHEW SMYTH DL by car barn laborer student Saurabh. Direct supervision by Miranda throughout procedure. Atrauma tic throughout. MC/ANE PreOp Note - Matthew Smyth MD - 06/07/2014 7:06 AM PDT ROS Pertinent HPI: From preop note: "Cielo Bell is a 64 y F with a right parotid neck mass here for preop evaluation. The mass causes problems swallowing, coughing, and makes her feel embarrassed in public. No headache; no we ight loss or night sweats. Still smoking 1.5-2 ppd History of Stroke (subarachnoid hemorrhage) Hx of MRSA" Pulmonary: cough chronic no URI COPD mild No dx of sleep apnea Risks factors for sleep apnea: Age>50 Pt at low risk of MELISSA Cardiovascular: Climbs 2 flights of stairs without CP/Palpitations/SOB/OVIEDO/dizziness Functi onal Capacity: Moderate + dyspnea on exertion - PND, palpitations, chest pressure and syncope no CAD no CHF no hypertension (hx of HTN; states resolved after stroke and not medicated at this time) no pacemaker GI/Hepatic: no GERD No liver disease no hepatitis : no renal failure Endo: no Diabetes: Neurological: no seizures no HX CORTICOSTEROID no psychiatric problem no pain Current Pain Level: Current pain level: 0 MS: no arthritis Heme/Onc: Pt. has: no active bleeding no Bleeding diathesis / thrombotic bleeding Previous Transfusions: transfusion hx Hx:Yes Malignancy: no cancer, Location: Metastasis: Skin: No open wounds or sores Hx of MRSA/VRE/Active skin infection (2007; states aquired in the hospital when she had her SAH) Physical Exam General: Patients general appearance: Healthy, Alert, No distress, Cooperative and Smiling Head & Neck/Airway: Neck ROM: full Neck Circumference: 34 cm. Dentition: dentures-upper and missing teeth Dental risk discussed with/pt : Yes Dentition C omments: bottom sides Cormier: No Mallampati: II C-Spine: normal Neck Anatomy: Normal Jaw Pro trusion: Normal, lower incisors can protrude past upper incisors Lung Exam: breath sounds normal Cardiac: Rhythm: regular Rate: normal murmur, systolic click, peripheral edema and weak pul ses Abdominal: General Findings: Deferred Musculoskeletal: Findings: tone normal and normal strength Neuro/Psych: alert Findings: Motor 5/5 strength globally with normal tone, No tremor, Alert , oriented to person, place, time and Normal affect Integument: - open wounds Color: pink Texture: Skin texture - normal Turgor: turgor normal Implants: shunt, Comments: PERMASTONE APPLICATOR shunt right side with skull defect. No known history of personal or family problems with anesthesia. MC/ANE PreOp Note - Valerie Stanley JORGE GandhiP - 06/06/2014 11:21 AM PDT ROS Pertinent HPI: Cielo Bell is a 64 y F with a right parotid neck mass here for preop ev aluation. The mass causes problems swallowing, coughing, and makes her feel embarrassed in public. No headache; no we ight loss or night sweats. Still smoking 1.5-2 ppd History of Stroke (subarachnoid hemorrhage) Hx of MRSA Pulmonary: cough chronic no URI COPD mild No dx of sleep apnea Risks factors for sleep apnea: Age>50 Pt at low risk of MELISSA Cardiovascular: Climbs 2 flights of stairs without CP/Palpitations/SOB/OVIEDO/dizziness Functi onal Capacity: Low + dyspnea on exertion - PND, palpitations, chest pressure and syncope no CHF Hypertension: hx of HTN; states resolved after stroke and not medicated at this time. no pacemaker GI/Hepatic: no GERD No liver disease no hepatitis : no renal failure Endo: no Diabetes: Neurological: no seizures no HX CORTICOSTEROID no psychiatric problem Current Pain Level: Current pain level: 0 MS: no arthritis Heme/Onc: Pt. has: no active bleeding no Bleeding diathesis / thrombotic bleeding Previous Transfusions: transfusion hx Hx:Yes Malignancy: no cancer, Location: Metastasis: Skin: No open wounds or sores Hx of MRSA/VRE/Active skin infection (2007; states aquired in the hospital when she had her SAH) Physical Exam General: Patients general appearance: Healthy, Alert, No distress, Cooperative and Smiling Head & Neck/Airway: Neck ROM: full Neck Circumference: 34 cm. Dentition: dentures-upper and missing teeth Dentition Comments: bottom sides Cormier: No Mall ampati: II C-Spine: normal Neck Anatomy: Normal Jaw Protrusion: Normal, lower incisors can protrude past upper incisors Lung Exam: Wheezing on left side; clears with cough; moist harsh cough; Dx of COPD, not ileana ing medication breath sounds abnormal Respiration Cardiac: Rhythm: regular Rate: normal murmur, systolic click, peripheral edema and weak pul ses Abdominal: General Findings: no abdominal tenderness and Nondistended Bowel Sounds: bowel sounds are normal Musculoskeletal: Findings: tone normal and normal strength Neuro/Psych: alert Findings: Motor 5/5 strength globally with normal tone, No tremor, Alert , oriented to person, place, time and Normal affect Integument: - open wounds Color: pink Texture: Skin texture - normal Turgor: turgor normal Implants: shunt, Comments: PERMASTONE APPLICATOR shunt right side BMI 23.8 documented in this encounter Plan of Treatment Not on filedocumented as of this encounter Visit Diagnoses Not on filedocumented in this encounter Administered Medications + +--------+ +------+------+------+ | Medication Order | MAR | Action | Dose | Rate | Site | | | Action | Date | | | | + +--------+ +------+------+------+ | ceFAZolin (ANCEF) injection 1 g | Given | 06/08/19 | 1 g | | | | 1 g, intravenous, PREPROCEDURE | | 15 7:46 | | | | | ONCE, 1 dose, Starting Fri | | AM PDT | | | | | 06/07/14 at 0613, Until Fri | | | | | | | 06/07/14 at 0746 | | | | | | + +--------+ +------+------+------+ +---+---+ | | | +---+---+ + +-------+ +------+---+---+ | dexamethasone (DECADRON) | Given | 06/08/19 | 4 mg | | | | injection INTRAPROCEDURE PRN, | | 15 7:55 | | | | | Starting 06/07/14 at 0755, | | AM PDT | | | | | Until 06/07/14 at 0911 | | | | | | + +-------+ +------+---+---+ +---+---+ | | | +---+---+ + +-------+ +--------+---+---+ | fentaNYL citrate (PF) | Given | 06/08/19 | 50 mcg | | | | (SUBLIMAZE) injection | | 15 8:24 | | | | | INTRAPROCEDURE PRN, Starting Fri | | AM PDT | | | | | 06/07/14 at 0738, Until Fri | | | | | | | 06/07/14 at 0911, sedation | | | | | | + +-------+ +--------+---+---+ +-------+ +--------+---+---+ | Given | 06/08/19 | 50 mcg | | | | | 15 8:12 | | | | | | AM PDT | | | | +-------+ +--------+---+---+ | Given | 06/08/19 | 50 mcg | | | | | 15 7:55 | | | | | | AM PDT | | | | +-------+ +--------+---+---+ +---+---+ | | | +---+---+ + +-------+ +--------+---+---+ | glycopyrrolate (AUGUSTO) | Given | 06/08/19 | 0.2 mg | | | | injection INTRAPROCEDURE PRN, | | 15 8:53 | | | | | Starting Tue06/07/14 at 0853, | | AM PDT | | | | | Until Tue06/07/14 at 0911 | | | | | | + +-------+ +--------+---+---+ +---+---+ | | | +---+---+ + +-------+ +--------+---+---+ | HYDROmorphone (DILAUDID) | Given | 06/08/19 | 0.2 mg | | | | injection INTRAPROCEDURE PRN, | | 15 8:56 | | | | | Starting Tue06/07/14 at 0856, | | AM PDT | | | | | Until Tue06/07/14 at 0911, | | | | | | | sedation | | | | | | + +-------+ +--------+---+---+ +---+---+ | | | +---+---+ + +---------+ +---+---+---+ | lactated ringers IV | New Bag | 06/08/19 | | | | | INTRAPROCEDURE CONTINUOUS PRN, | | 15 7:24 | | | | | Starting Tue06/07/14 at 0724, | | AM PDT | | | | | Until Tue06/07/14 at 0911 | | | | | | + +---------+ +---+---+---+ +---+---+ | | | +---+---+ + +-------+ +-------+---+---+ | lidocaine PF (XYLOCAINE MPF) 20 | Given | 06/08/19 | 60 mg | | | | mg/mL (2 %) injection | | 15 7:38 | | | | | INTRAPROCEDURE PRN, Starting Fri | | AM PDT | | | | | 06/07/14 at 0738, Until Fri | | | | | | | 06/07/14 at 0911 | | | | | | + +-------+ +-------+---+---+ +---+---+ | | | +---+---+ + +-------+ +------+---+---+ | midazolam (VERSED) injection | Given | 06/08/19 | 1 mg | | | | INTRAPROCEDURE PRN, Starting Fri | | 15 7:24 | | | | | 06/07/14 at 0724, Until Fri | | AM PDT | | | | | 06/07/14 at 0911, sedation | | | | | | + +-------+ +------+---+---+ +---+---+ | | | +---+---+ + +-------+ +------+---+---+ | neostigmine (PROSTIGMIN) | Given | 06/08/19 | 1 mg | | | | injection intravenous, | | 15 8:53 | | | | | INTRAPROCEDURE PRN, Starting Fri | | AM PDT | | | | | 06/07/14 at 0853, Until Fri | | | | | | | 06/07/14 at 0911 | | | | | | + +-------+ +------+---+---+ +---+---+ | | | +---+---+ + +-------+ +------+---+---+ | ondansetron (ZOFRAN) injection | Given | 06/08/19 | 4 mg | | | | INTRAPROCEDURE PRN, Starting Fri | | 15 8:44 | | | | | 06/07/14 at 0844, Until Fri | | AM PDT | | | | | 06/07/14 at 0911 | | | | | | + +-------+ +------+---+---+ +---+---+ | | | +---+---+ + +-------+ +---------+---+---+ | PHENYLEPHrine 100 mcg/mL | Given | 06/08/19 | 100 mcg | | | | injection (OR syringe) | | 15 7:51 | | | | | intravenous, INTRAPROCEDURE PRN, | | AM PDT | | | | | Starting Tue06/07/14 at 0740, | | | | | | | Until Tue06/07/14 at 0911 | | | | | | + +-------+ +---------+---+---+ +-------+ +---------+---+---+ | Given | 06/08/19 | 100 mcg | | | | | 15 7:40 | | | | | | AM PDT | | | | +-------+ +---------+---+---+ +---+---+ | | | +---+---+ + +-------+ +-------+---+---+ | propofol INTRAPROCEDURE PRN, | Given | 06/08/19 | 10 mg | | | | Starting Tue06/07/14 at 0738, | | 15 9:04 | | | | | Until Tue06/07/14 at 0911 | | AM PDT | | | | + +-------+ +-------+---+---+ +-------+ +--------+---+---+ | Given | 06/08/19 | 120 mg | | | | | 15 7:38 | | | | | | AM PDT | | | | +-------+ +--------+---+---+ +---+---+ | | | +---+---+ + +-------+ +-------+---+---+ | rocuronium (ZEMURON) injection | Given | 06/08/19 | 40 mg | | | | INTRAPROCEDURE PRN, Starting Fri | | 15 7:38 | | | | | 06/07/14 at 0738, Until Fri | | AM PDT | | | | | 06/07/14 at 0911, Neuromuscular | | | | | | | block | | | | | | + +-------+ +-------+---+---+ +---+---+ | | | +---+---+ documented in this encounter
--- OUTSIDE RECORDS SUMMARY | ~2019-10-22 | XMS | Encounter Summary ---
Demographics + + + | Address | [address] | | | [place] [address] | + + + | Home Phone [...] Phone | + + +---------+ + | Augusot Bell | ECON | Unknown | | + + +---------+ + | Thaddeus Gerard | ECON | Unknown | | + + +---------+ + | Eric Leung | ECON | Unknown | | + + +---------+ + Care Team Providers + +------+ + | Care House Mover Helper Name | Role | Phone | + +------+ + | Mary Vazquez PA-C | PCP | | + +------+ + Encounter Details +--------+--------+ + + + | Date | Type | Department | Care Team | Description | +--------+--------+ + + + | 07/10/ | Travel | | | | | [...]
--- OUTSIDE RECORDS SUMMARY | ~2019-10-22 | XMS | Encounter Summary ---
Demographics + + + | Address | [address] | | | [place] [address] | + + + | Home Phone [...] Team Providers + +------+ + | Care Retail Loan Originator Assistant Name | Role | Phone | [...] + + + + | 10/25/ | Hospital | [facility] [address] | Ata White MD | | | 2019 | Encounter | [address] | [address] | | | | | [id number] | [place], | | | | | [place], | [place] [address] | | | | | [place] [address] | [phone] | | | | | [phone] | | | +--------+ + + + [...] + + + | Blood Pressure | 107/55 | 10/25/2018 2:22 PM | | | | | PDT | | + + + + + | Pulse | 86 | 10/25/2018 2:22 PM | | | | | PDT | | + + + + + | Temperature | 36.2 C (97.2 F) | 10/25/2018 2:22 PM | | | | | PDT | | + + + + + | Respiratory Rate | 14 | 10/25/2018 2:22 PM | | | | | PDT | | + + + + + | Oxygen Saturation | 96% | 10/25/2018 2:22 PM | | | | | PDT | | + + + + + | Inhaled Oxygen | - | - | | | Concentration | | | | + + + + + | Weight | 48.4 kg (106 lb 11.2 | 10/25/2018 2:22 PM | | | | oz) | PDT | | + + + + + | Height | 149.9 cm (4' 11") | 10/25/2018 2:22 PM | | | | | PDT | | + + + + + | Body Mass Index | 21.55 | 10/25/2018 2:22 PM | | | | | PDT [...] + + + +---------+ + + | MEDICATION | Indications: | | 0 | | | | HELPIndications: | occlusive gauze | | | | | | occlusive gauze | strips - dressing on | | | | | | strips - dressing on | head | | | | | | head | | | | | | + [...] as of this encounter Plan of Treatment + +---------+--------+ + + | Name | Type | Priori | Associated Diagnoses | Order Schedule | | | | ty | | | + +---------+--------+ + + | INTRAPROCEDURE | Imaging | Urgent | | One Time for 1 | | IMAGING | | | | Occurrences starting | | | | | | 10/25/2018 until | | | | | | 10/25/2018, 1 | | | | | | completed | + +---------+--------+ + + documented as of this encounter Procedures + +--------+ + + + | Procedure Name | Priori | Date/Time | Associated Diagnosis | Comments | | | ty | | | | + +--------+ + + + | INTRAPROCEDURE | Urgent | 10/25/2018 | | Results for this | | IMAGING | | 2:22 PM | | procedure are in the | | | | PDT | | results section. | + +--------+ + + + documented in this encounter Results INTRAPROCEDURE IMAGING (10/25/2018 2:22 PM PDT) + + | Specimen | [...] | Diagnosis | + + | Wound dehiscence - Primary Disruption of external operation (surgical) wound | + + documented in this encounter Administered Medications + +--------+---------+------+------+------+ | Medication Order | MAR | Action | Dose | Rate | Site | | | Action | Date | | | | + +--------+---------+------+------+------+ + +---+ | EPI 1:1000-NS injection | | | INTRAPROCEDURE PRN, Starting Wed | | | 10/25/18 at 1509, Until Tue10/25/18 | | | at 2128 | | + +---+ | | | + +---+ | lactated ringers IV 10 mL/hr, | | | intravenous, PROCEDURE | | | CONTINUOUS, Starting Tue10/25/18 | | | at 1430, Until Tue10/25/18 at 8 | | + +---+ | | | + +---+ | lidocaine (XYLOCAINE) 10 mg/mL | | | (1 %) injection subcutaneous, | | | PREPROCEDURE PRN, Starting Wed | | | 10/25/18 at 1422, Until Tue10/25/18 | | | at 8, IV start | | + +---+ | | | + +---+ | metoprolol succinate | | | (TOPROL-XL) tablet 50 mg 50 mg, | | | oral, ONCE, 1 dose, Tue10/25/18 at | | | 1530 | | + +---+ | | | + +---+ documented in this encounter
--- OUTSIDE RECORDS SUMMARY | ~2019-10-22 | XMS | Encounter Summary ---
Demographics + + + | Address | [address] | | | [place] [address] | + + + | Home Phone | | + + + | Preferred Language | Unknown | + + + | Marital Status | | + + + | Presybeterian Affiliation | Unknown | + + + | Race | White | + + + | Ethnic Group | Not or | + + + Author + + + | Author | [facility] | | | and [place] | + + + | Organization | [facility] | | | [...] Team Providers + +------+ + | Care Drilling Rig Operator Name | Role | Phone | + +------+ + | Lance Pandya DO | PCP | | + +------+ + Reason for Visit + +--------+ + | Reason | Onset | Comments | | | Date | | + +--------+ + | Records Request | 09/18/ | FROM [facility] | | | 2015 | | + +--------+ + Encounter Details +--------+ + + + + | Date | Type | Department | Care Team | Description | +--------+ + + + + | 09/18/ | Telephone | [facility] | Chana Luu, | Records Request | | 2015 | | CARDIOLOGY [address] | MD [address] | (FROM [facility]) | | | | [place], | [place], [place] | | | | | [place] [address] | [id number] | | | | | [phone] | | | +--------+ + + + [...] Notes Telephone Encounter - Ericka Guerrero - 09/19/2015 12:18 PM PDTFaxed to Venus Ball at [facility] the following, including advertising copy writer of [facility] request, as requested by Lucille/extracorporeal technician: Dr. Luu office notes of 09-18-15 and 06-17-15 Also, I have scanned [facility] request in this patient's documents. documented in this encounter Plan of Treatment Not on filedocumented as of this encounter Visit Diagnoses Not on filedocumented in this encounter"
--- OUTSIDE RECORDS SUMMARY | ~2019-10-22 | XMS | Encounter Summary ---
Demographics + + + | Address | [address] | | | [place] [address] | + + + | Home Phone | | + + + | Preferred Language | Unknown | + + + | Marital Status | | + + + | Sabianist Affiliation | MET | + + + [...] Team Providers + +------+ + | Care Scientific Database Curator Name | Role | Phone | + [...] | | | [address] | [facility] | disease | | | | [facility] | [place], [place] | | | | | [address] | [address] | | | | | [place], [place] | [phone] | | | | | [address] | | | | | | [phone] | | | +--------+ + + + [...] OPAT patient has been entered into the [facility] OPAT system of care. Please contact [facility] ID at phone: [phone]; fa x: [phone] with any questions or concerns regarding this [...] note might be different from the original. [facility] OPAT Form OPAT Admit Date: 12/09/17 IP ID Census Taker: Tika Mejia MD, Xavier Mariscal MD Diagnosis: Cranial osteomyelitis, s/p removal of infected cranioplasty M86.9 Antimicrobials Start Date End Date Antibiotic Dose Duration Effective Start Date Anticipated Stop Date Com ments 12/08/17 Ceftriaxone 2g IV q 24 hours 6 weeks 12/05/17 01/16/18 weekly CBC with Differential and CMP Infusion Service Provider: [facility] P [phone], F [phone] Line & Lab Provider: " Line Type: Single-Lumen PICC (Comment: Non-tunneled;Valved Right Arm Basilic ) Line Placed (date): 12/09/17 Discharge Service: Neurological Surgery Discharge Service Provider: Paramjit Huber MD Notes: Team A: OPAT ALEKSANDAR Rowan, Office: [phone], Pager: [phone] Follow Up: with Dr. Mejia, Any available [...] supposed to see Mary Vazquez NP at [phone] [facility] All cultures final. elephone Encounter - Kristen Goss RN - 12/12/2017 11:11 AM PDTLast ID Consult Recs: Date of Service: 12/08/17 Maite Stevens, Medical Student Xavier Mariscla MD Assessment and Plan: 67 y/o F with CAD s/p PR, HTN, SAH s/p right pterional craniotomy for clipping (09/2007) c/b hydrocephalus treated by a right frontal VPS (03/2008) and synthetic cranioplasty for eroded hardware in 10/2015. Presented with a week of increasing headache and purulent drainage from the cranioplasty site with wound dehiscence, and on 12/06/17 underwent removal of craniopla sty and CHECK PILOT shunt as well as washout. All hardware [...] its place. Xavier Mariscal MD ID Attending documented in this en counter Plan of Treatment Not on filedocumented as of this encounter Visit Diagnoses Not on filedocumented in this encounter
--- OUTSIDE RECORDS SUMMARY | ~2019-10-22 | XMS | Encounter Summary ---
Demographics + + + | Address | [address] | | | [place] [address] | + + + | Home Phone | | + + + | Preferred Language | Unknown | + + + | Marital Status | | + + + | Amish Affiliation | Unknown | + + + | Race | White | + + + | Ethnic Group | Not or | + + + Author + + + | Author | [facility] | | | and [place] | + + + | Organization | [facility] | | [...] Team Providers + +------+ + | Care Groundwater Consultant Name | Role | Phone | + +------+ + | Lance Pandya DO | PCP | | + +------+ + Encounter Details +--------+ + + + + | Date | Type | Department | Care Team | Description | +--------+ + + + + | 03/12/ | Orders Only | [facility] [place] | [place] L, | | | 2015 | | CARDIOLOGY [address] | RN | | | | | [place], | | | | | | [place] [address] | | | | | | [phone] | | | +--------+ + + + [...]
--- OUTSIDE RECORDS SUMMARY | ~2019-10-22 | XMS | Encounter Summary ---
Demographics + + + | Address | [address] | | | [place] [address] | + + + | Home Phone [...] Team Providers + +------+ + | Care Broadcast Maintenance Engineer Name | Role | Phone | [...] + + + + | 08/03/ | Hospital | [facility] [address] [address] Angelo MD | | | 2019 - | Encounter | [address] | [address] | | | | | [id number] [facility] | [facility] [place] | | | 08/11/ | | [facility], | [address] | | | 2019 | | [place] [address] | [phone] | | | | | [phone] | | | | | | | Ata White MD [address] | | | | | | [address] | | | | | | [place], [place] | | | | | | [address] | | | | | | [phone] | | | | | | | [...] + + + | Blood Pressure | 112/68 | 08/11/2018 8:03 AM | | | | | PDT | | + + + + + | Pulse | 88 | 08/11/2018 8:03 AM | | | | | PDT | | + + + + + | Temperature | 36.7 C (98.1 F) | 08/11/2018 8:03 AM | | | | | PDT | | + + + + + | Respiratory Rate | 20 | 08/11/2018 4:54 AM | | | | | PDT | | + + + + + | Oxygen Saturation | 98% | 08/11/2018 8:03 AM | | | | | PDT | | + + + + + | Inhaled Oxygen | - | - | | | Concentration | | | | + + + + + | Weight | 50.5 kg (111 lb 5.3 | 08/09/2018 5:54 AM | | | | oz) | [...] AM PDTFormatting of this note might be criselda nt from the original. DOS: 08/11/2018 8:29 [...] transferred to the rosas for continued ac huslia care and q4h flap checks. By POD [...] that I, or Nurse Practitioner or Physician Dimensional Inspector working with me, had a face to face encounter with this patient on 08/08/2018 On behalf of Attending Physician: Ata White MD I am ordering and certify that the following services are medically necessary [facility] Evaluate and Treat Wound care I certify [...] Appointments 08/17/2018 11:00 AM MD NITESH Hansen [facility] Otolaryngobecka 10/02/2018 12:00 PM MD NITESH Hansen [facility] Otolaryngolo HOW TO REACH US: Tuesday- Tuesday from 8:00am to 4:30pm, call the Otolaryngology clinic at [phone]. After hours, weekends, and holidays, call the [facility] sonar subsystem equipment operator at [phone] and as k to have the ENT doctor on-call paged Future Appointments Date Time Provider Department Center 08/17/2018 11:00 AM MD NITESH Hansen Otolaryngobecka 10/02/2018 12:00 PM MD NITESH Hansen [facility] Otolaryngolo Consults obtained: Pertinent imaging: Pertinent labs: [...] Shelton MD Resident Physician, PGY1 Service Pager: [phone] Valente Valdovinos MD,DD S - 08/10/2018 8:37 AM PDT Head and Neck Surgery Inpatient Daily Progress Note: Primary Care Provider: Mary Vazquez PA-C Admission Date: 08/03/2018 GLORIA ADHIKARI, [id number] Hospital Day #7 PROCEDURES: Dr. Diego 08/03/18 [...] subject to change based on clinical developments. obarMel Abarca MD - 08/10/2018 8:12 AM PDT INPATIENT PROGRESS NOTE Hospital Day:7 Attending Physician: Ata White MD Interval Hx: - NAEO. - No complaints this AM - Excited for DC tomorrow. - H/H stable 9.4. Physical Exam: Last Vitals: BP 106/53 (BP [...] RLB Gram Stain...........: Gram smear performed at [facility]. Culture: Final Report: No growth after 3 days. Final Report 04/29/2008 Corrected CSF Culture Source...............: Cerebrospinal Fluid RLB Gram Stain...........: Gram smear performed at [facility]. Culture: Rare Methicillin resistant Staphylococcus aureus Final ID MRSA Cefazolin R Clindamycin S Erythromycin R Oxacillin R Penicillin R Tetracycline S Trimeth/Sulfa S Vancomycin S Final Report Comment: Test performed at [facility]. 03/07/2008 Corrected CSF Culture Source...............: Cerebrospinal Fluid RLB Gram Stain...........: Gram smear performed at [facility]. Culture: Final Report: No growth after 3 days. Final Report Comment: Test performed at [facility]. 03/03/2008 Corrected CSF Culture Source...............: Cerebrospinal Fluid RLB Gram Stain...........: Gram smear performed at [facility]. Culture: Final Report: No growth after 3 days. Final Report Comment: Test performed at [facility]. 03/03/2008 Corrected Wound Culture Source...............: Skin Abscess RLB Gram Stain...........: Rare Squamous epithelial cells Rare PMN's Rare Gram positive cocci Culture: 1+ Methicillin resistant Staphylococcus aureus Final ID MRSA Cefazolin R Clindamycin S Erythromycin R Oxacillin R Penicillin R Tetracycline S Trimeth/Sulfa S Vancomycin S Final Report Resulted: 03/05/08 RLB ([facility]) [facility] [address] [place] [address] Comment: Test performed at [facility]. CULTURE RESULT Date Value Ref Range [...] care rehab. OK for DVT prophylaxis from NS perspective, if felt warranted. Smoking cessation. Neurosurgery to continue to follow. Ok for discharge at any time from [facility] perspective. Mel Shelton MD Resident Physician, PGY1 Service Pager: [phone] Osei Garcia MD - 08/09/2018 8:56 AM PDT INPATIENT PROGRESS NOTE Hospital Day:6 Attending Physician: Ata White MD Interval Hx: - Off the Heparin gtt. - No complaints this AM - Excited for DC on Tuesday. - H/H stable 9.2/28.3. Physical Exam: Last [...] RLB Gram Stain...........: Gram smear performed at [facility]. Culture: Final Report: No growth after 3 days. Final Report 04/29/2008 Corrected CSF Culture Source...............: Cerebrospinal Fluid RLB Gram Stain...........: Gram smear performed at [facility]. Culture: Rare Methicillin resistant Staphylococcus aureus Final ID MRSA Cefazolin R Clindamycin S Erythromycin R Oxacillin R Penicillin R Tetracycline S Trimeth/Sulfa S Vancomycin S Final Report Comment: Test performed at [facility]. 03/07/2008 Corrected CSF Culture Source...............: Cerebrospinal Fluid RLB Gram Stain...........: Gram smear performed at [facility]. Culture: Final Report: No growth after 3 days. Final Report Comment: Test performed at [facility]. 03/03/2008 Corrected CSF Culture Source...............: Cerebrospinal Fluid RLB Gram Stain...........: Gram smear performed at [facility]. Culture: Final Report: No growth after 3 days. Final Report Comment: Test performed at [facility]. 03/03/2008 Corrected Wound Culture Source...............: Skin Abscess RLB Gram Stain...........: Rare Squamous epithelial cells Rare PMN's Rare Gram positive cocci Culture: 1+ Methicillin resistant Staphylococcus aureus Final ID MRSA Cefazolin R Clindamycin S Erythromycin R Oxacillin R Penicillin R Tetracycline S Trimeth/Sulfa S Vancomycin S Final Report Resulted: 03/05/08 RLB ([facility]) [facility] [place] [address] [place] [address] Comment: Test performed at [facility]. CULTURE RESULT Date Value Ref Range [...] Shelton MD Resident Physician, PGY1 Service Pager: [phone] Associated attestation - Casey Hewitt MD - [...] Vazquez PA-C Admission Date: 08/03/2018 GLORIA ADHIKARI, [id number] Hospital Day #6 PROCEDURES: Dr. Diego 08/03/18 - Right mesh cranioplasty Dr. White (ENT) 08/03/18 - Free autologous flap from right latissimus dorsi to right scalp defect SUBJECTIVE INTERVAL EVENTS: Afebrile, hemodynamically stable, adequate UOP Heparin gtt discontinued On RA with good saturations OBJECTIVE Last 24 hour [...] Intake/Output Summary (Last 24 hours) at 08/09/2018 0751 Last data filed at 08/09/2018 0500 Gross [...] Recent Labs 08/07/18 0615 08/08/18 0640 08/08/18 1733 08/08/18 2134 08/09/18 0543 NA 142 -- 139 -- -- [...] RLB Gram Stain...........: Gram smear performed at [facility]. Culture: Final Report: No growth after 3 days. Final Report 04/29/2008 Corrected CSF Culture Source...............: Cerebrospinal Fluid RLB Gram Stain...........: Gram smear performed at [facility]. Culture: Rare Methicillin resistant Staphylococcus aureus Final ID MRSA Cefazolin R Clindamycin S Erythromycin R Oxacillin R Penicillin R Tetracycline S Trimeth/Sulfa S Vancomycin S Final Report Comment: Test performed at [facility]. 03/07/2008 Corrected CSF Culture Source...............: Cerebrospinal Fluid RLB Gram Stain...........: Gram smear performed at [facility]. Culture: Final Report: No growth after 3 days. Final Report Comment: Test performed at [facility]. 03/03/2008 Corrected CSF Culture Source...............: Cerebrospinal Fluid RLB Gram Stain...........: Gram smear performed at [facility]. Culture: Final Report: No growth after 3 days. Final Report Comment: Test performed at [facility]. 03/03/2008 Corrected Wound Culture Source...............: Skin Abscess RLB Gram Stain...........: Rare Squamous epithelial cells Rare PMN's Rare Gram positive cocci Culture: 1+ Methicillin resistant Staphylococcus aureus Final ID MRSA Cefazolin R Clindamycin S Erythromycin R Oxacillin R Penicillin R Tetracycline S Trimeth/Sulfa S Vancomycin S Final Report Resulted: 03/05/08 RLB ([facility]) [facility] [address] [place] [address] Comment: Test performed at [facility]. CULTURE RESULT Date Value Ref Range [...] cranioplasty exposure. She was admitted [facility] on 07[facility]10 and underwent explant of her cranioplasty and wound closure by ENT the follow ing day. She was discharged to home on 07/13. Ms Adhikari's surgical culture was notable f or growth of staph epidermidis. ID recommended no treatment at that time. She was seen in in on 07/28 at which time her wound had dehisced after sutures removed in ENT-plastics clini c. As such, surgical plan for free flap was made. Ms Adhikari was admitted to [facility] on 08/03 f or right mesh cranioplasty, wound debridement and lat dorsi flap in coordination with Jose Bass and Christopher. PLAN: Wound care per primary team. Encourage mobilization, acute care rehab. OK for DVT prophylaxis from NSG perspective, if felt warranted. Smoking cessation. Neurosurgery to continue to follow. ANSON MULLINS [facility] [address] [address] [place] [address] [id number] signed by ANSON Martinez at 08/08/2018 2:51 PM PDTValente Law i, MD,DDS - 08/08/2018 5:57 AM PDT Head and Neck Surgery Inpatient Daily Progress Note: Primary Care Provider: Mary Vazquez PA-C Admission Date: 08/03/2018 GLORIA MARSHAHARLEY ADHIKARI, [id number] Hospital Day #5 PROCEDURES: Dr. Diego 08/03/18 [...] subject to change based on clinical developments. ettie Jaramillo PA - 1:32 PM PDT INPATIENT PROGRESS [...] RLB Gram Stain...........: Gram smear performed at [facility]. Culture: Final Report: No growth after 3 days. Final Report 04/29/2008 Corrected CSF Culture Source...............: Cerebrospinal Fluid RLB Gram Stain...........: Gram smear performed at [facility]. Culture: Rare Methicillin resistant Staphylococcus aureus Final ID MRSA Cefazolin R Clindamycin S Erythromycin R Oxacillin R Penicillin R Tetracycline S Trimeth/Sulfa S Vancomycin S Final Report Comment: Test performed at [facility]. 03/07/2008 Corrected CSF Culture Source...............: Cerebrospinal Fluid RLB Gram Stain...........: Gram smear performed at [facility]. Culture: Final Report: No growth after 3 days. Final Report Comment: Test performed at [facility]. 03/03/2008 Corrected CSF Culture Source...............: Cerebrospinal Fluid RLB Gram Stain...........: Gram smear performed at [facility]. Culture: Final Report: No growth after 3 days. Final Report Comment: Test performed at [facility]. 03/03/2008 Corrected Wound Culture Source...............: Skin Abscess RLB Gram Stain...........: Rare Squamous epithelial cells Rare PMN's Rare Gram positive cocci Culture: 1+ Methicillin resistant Staphylococcus aureus Final ID MRSA Cefazolin R Clindamycin S Erythromycin R Oxacillin R Penicillin R Tetracycline S Trimeth/Sulfa S Vancomycin S Final Report Resulted: 03/05/08 RLB ([facility]) [facility] [address] [place] [address] Comment: Test performed at [facility]. CULTURE RESULT Date Value Ref Range [...] cranioplasty exposure. She was admitted to neurosurgery ser [facility] on 07/10 and underwent [...] was made. Ms Adhikari was admitted to [facility] on 08/03 for r ight mesh cranioplasty, wound debridement and lat dorsi flap in coordination with Jose Diego and Christopher. PLAN: Wound care per primary team. Encourage mobilization, acute care rehab. OK for DVT prophylaxis from NSG perspective, if felt warranted. Smoking cessation. Neurosurgery to continue to follow. ANSON MULLINS [facility] [address] [address] [place] [address] Valente Valdovinos MD,DDS - 08/07/2018 6:04 AM PDTFormatting of this note might be different from the reba l. Head and Neck Surgery Inpatient Daily Progress Note: Primary Care Provider: Mary Vazquez PA-C Admission Date: 08/03/2018 GLORIA ADHIKARI, [id number] Hospital Day #4 PROCEDURES: Dr. White (ENT) [...] Dressing intact. Lazara serosang. LABS: Recent Labs 08/05/18 0140 08/06/18 0406 08/06/18 1830 08/06/18 2246 08/07/18 0615 [...] Invalid input(s): PHOS, CA Recent Labs 08/05/18 0140 08/06/18 0406 08/07/18 [...] D/B/T/HG RLE: 5/5 HF/KE/DF/PF LLE: 5/5 HF/KE/DF/PF SILT Flap incisions c/d/i with minimal [...] 68 y.o. female HD#2 with CAD s/p [place], HTN, GERD, tobacco use, and a history [...] Shelton MD Resident Physician, PGY1 Service Pager: [phone] Associated attestation - Casey Hewitt MD - [...] Mary Vazquez PA-C Admission Date: 08/03/2018 GLORIA CANTUARD, [id number] Hospital Day #3 PROCEDURES: Dr. White (ENT) [...] Small 1cm punctate area with granulation tissue. Vici on neck with dried crust surrounding- removed [...] until POD5 - Continue LAZARA drain - Vici removed this morning - DC Vanc/ancef prophylaxis - Continue reg diet - Transfuse 1u PRBC today for hx of ACS and HCT 22 - Continue hep gtt with goal of 50-70 Dispo: Continue rosas care Sabiha Johnson Gen Surg R4 First Call ENT resident program director/air personality Sabiha Wu M D - 08/05/2018 6:37 AM PDT Head and Neck Surgery Inpatient Daily Progress Note: Primary Care Provider: Mary Vazquez PA-C Admission Date: 08/03/2018 GLORIA ADHIKARI, [id number] Hospital Day #2 PROCEDURES: Dr. White (ENT) [...] forehead with dressing in place and strikethrough. Vici on neck with dried crust surrounding. Right [...] Gen Surg R4 First Call ENT resident program director/air personality Israel Oden ACNP - 08/05/2018 5:41 AM PDT . Neuroscience Intensive Care Unit Team Progress Note NSICU ASSIGNED #[id number] ICU Admission Reason Most Recent Value ICU [...] She was discharged home the following day howev er he presented on 05/14/2018 with enlarging [...] She was then advised to present to [facility] ED. The patient had denied any [...] given yesterday for H&H 09/11, this AM 8.4/ Continues on heparin infusion Active Diagnosis with [...] Treatment Team Otolaryngology Ipt Critical Care Nsicu #[id number] Treatment Team Ipt Neurosurgery #[id number] Treatment Team Neurological Surgery Patient Lines/Drains/Airways Status Active Lines, Drains and Airways Name: Placement date: Placement time: Site: Days: Drain LAZARA Right Lateral flank 1 08/03/18 1527 flank 1 Drain LAZARA Right Medial flank 2 08/03/18 1527 flank 1 Drain Vici Right head 3 08/03/18 1914 head 1 [...] e. Date of Service: 08/05/2018 KOKO JACKSON [facility] DEPARTMENT: ANE ICU NEURO Place of Service:- Inpatient CSN: [id number] Suggested Modifier: None Suggested CPT: TO CIRCUS ROUSTABOUT Author:KOKO JACKSON [address] [id number] signed by KOKO Jackson at 08/05/2018 10:13 [...] pencil doppler with good Signal over right orthodoxy Incisions: c/d/i, drains with serosanguinous fluid. Soft [...] Berman MD Otolaryngology-Head & Neck Surgery PGY-2 [facility] ENT program director/air personality pager [phone] ossVickie MD,MPH - 12:24 AM PDT NEUROSURGERY PROGRESS [...] RLB Gram Stain...........: Gram smear performed at [facility]. Culture: Final Report: No growth after [...] 68 y.o. female HD#2 with CAD s/p [place], HTN, GERD, tobacco use, and a history [...] Please contact the Neurosurgery resident on-call pager [phone] with questions or concerns. Vickie Estrada M.D., M.P.H. R2 Resident Physician Neurological Surgery Pager: [phone] signed by Vickie Estrada MD,MPH at 08/05/2018 [...] pencil doppler with good Signal over right orthodoxy Incisions: c/d/i, drains with serosanguinous fluid. Soft [...] Berman MD Otolaryngology-Head & Neck Surgery PGY-2 [facility] ENT program director/air personality pager [phone] Georgia Pinto MD - 07/22 9:05 AM PDT . Neuroscience Intensive Care Unit Attending Progress Note Attending Pager #[phone] ICU Admission Reason Most Recent Value ICU [...] She was discharged home the following day [facility] he presented on 05/14/2018 with [...] She was then advised to present to [facility] ED. The patient had denied any [...] Treatment Team Otolaryngology Ipt Critical Care Nsicu #[id number] Treatment Team Ipt Neurosurgery #[id number] Treatment Team Neurological Surgery Code Status Code Status Full Code The Advanced Care Note for this patient can be found under the notes tab in chart review. Quality section A-Line necessity reviewed: [id number] blood pressure monitoring Benavides necessity reviewed: Plan [...] rec ent imaging available. Author:GEORGIA ARREOLA MD [address] [id number] signed by Georgia Arreola MD at 08/04/2018 9:09 AM P Angie Rodarte PA-C - 08/04/2018 5:59 AM PDT DOS: 08/04/2018 Head and Neck Surgery Inpatient Daily Progress Note: Primary Care Provider: Mary Vazquez PA-C Admission Date: 08/03/2018 GLORIA ADHIKARI, [id number] Hospital Day #1 PROCEDURES: Dr. White (ENT) [...] and 90 ml SS) LABS: Recent Labs 08/03/18 2343 08/04/18 0139 08/04/18 0243 08/04/18 0442 NA 141 -- -- -- -- K [...] hours. Invalid input(s): PHOS, CA Recent Labs 08/03/18 2110 08/03/18 2343 08/04/18 014 WBC 16.85* 16.18* 15.26* RBC 3.81* 3.50* 3.28* HB 11.9* 10.9* 10.3* HCT 37.2 33.9* 31.4* PLT 243 217 202 Recent Labs 08/04/18 014 APTT >200.0* CBG's Recent Labs 08/03/18 1043 08/03/18 1952 08/03/18 2110 08/03/18 2232 08/03/18 2335 08/03/18 2343 08/04/18 0037 08/04/18 0139 08/04/18 0243 08/04/18 0442 GLU 88 189* [...] now -Doppler switch down on POD 5 -Vici continue -Flap protocol for blood transfusion Hct <21. Hct 31.4 this am -Continue heparin gtt for 5 days, goal 50-70 Dispo: Okay to transfer to floor, if okay by NICU team. Transfer to ENT head and neck servi ce. ANGIE FRENCH PA-C Department of Otolaryngology/Head and Neck Surgery Mail Code PV[address] [place] [address] Pager [phone] Consult/Night/Weekend Pager: [phone] Code Status: FULL ANGIE FRENCH PA-C Otolaryngology-Head and Neck Surgery [facility] Pager [phone] Israel Oden AC GENERAL ACCOUNTING CLERK - 08/04/2018 5:50 AM PDT . Neuroscience Intensive Care Unit Team Progress Note NSICU ASSIGNED #[id number] ICU Admission Reason Most Recent Value ICU [...] She was discharged home the following day [facility] he presented on 05/14/2018 with [...] She was then advised to present to [facility] ED. The patient had denied any [...] Treatment Team Otolaryngology Ipt Critical Care Nsicu #[id number] Treatment Team Ipt Neurosurgery #[id number] Treatment Team Neurological Surgery Patient Lines/Drains/Airways Status [...] ICU NEURO Place of Service:- Inpatient CSN: [id number] Suggested Modifier: None Suggested CPT: TO CIRCUS ROUSTABOUT Author:KOKO JACKSON [address] [id number] signed by KOKO Jackson at 08/04/2018 1:55 [...] recorded Labs: Complete Blood Count/Coags Recent Labs 08/03/18 2110 08/03/18 2343 08/04/18 0145 WBC 16.85* 16.18* 15.26* HB 11.9* 10.9* 10.3* HCT 37.2 33.9* 31.4* PLT 243 217 202 Invalid input(s): INR CSF Results No results for input(s): WBCCSF, RBCCSF, GLUCOSECSF, PROTEINCSF in the last 8640 hours. Chemistry Recent Labs 12/07/17 1114 05/08/18 1200 05/09/18 0005 05/15/18 0236 05/20174608/03/18195108/03/18210908/03/18 2343 NA 137 < > 137 137 [...] RLB Gram Stain...........: Gram smear performed at [facility]. Culture: Final Report: No growth after [...] 68 y.o. female HD#1 with CAD s/p [place], HTN, GERD, tobacco use, and a history [...] Please contact the Neurosurgery resident on-call pager [phone] with questions or concerns. Vickie Estrada M.D., M.P.H. R2 Resident Physician Neurological Surgery Pager: [phone] signed by Casey Hewitt MD at 08/04/2018 [...] Please contact the Neurosurgery resident on-call pager [phone] with questions or concerns. Vickie Estrada M.D., M.P.H. Resident Physician Neurological Surgery Pager: [phone] signed by Vickie Estrada MD,MPH at 08/03/2018 9:09 PM Rosario Moura MD - 08/03/2018 7:37 PM PDTBRSHELLI OPERATIVE NOTE Procedure Date: 08/03/2018 Author: ROSARIO [...] PTT 55-70. Initial surgical contact: ENT resident program director/air personality Rosario Sanderson MD Resident, Plastic & Reconstructive Surgery [facility] Pager [phone] documented in this en counter H&P Notes ChrismanBarry kwong, PUBLICATIONS PRODUCTION SUPERVISOR - 08/03/2018 10:59 PM PDTFormatting of this note might be different fr om the original. . Neuroscience Intensive Care Unit Team H&P Note NSICU ASSIGNED #[id number] Days in ICU Days in Hospital Documentation [...] She was discharged home the following day [facility] he presented on 05/14/2018 with enlarging right [...] She was then advised to present to [facility] ED. 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 Warping Mill Operator shunt Tympanoplasty Right 1987 Lumpectomy of left breast 1979 Coronary stent placement 12/28/2014 status post stent placement in the mid LAD Removal of vp celebrity services shunt Cholecystectomy Allergies Allergen Reactions Vermillion Tar Hives Betadine [Povidone-Iodine (With Soap)] Rash [...] Treatment Team Otolaryngology Ipt Critical Care Nsicu #[id number] Treatment Team Ipt Neurosurgery #[id number] Treatment Team Neurological Surgery Patient Lines/Drains/Airways Status Active Lines, Drains and Airways Name: Placement date: Placement time: Site: Days: Drain LAZARA Right Lateral flank 1 08/03/18 1527 flank less than 1 Drain LAZARA Right Medial flank 2 08/03/18 1527 flank less than 1 Drain Vici Right head 3 08/03/18 1914 head less [...] e. Date of Service: 08/03/2018 GRANT Fuentes [address] [id number] signed by GRANT Fuentes at 08/03/2018 11:20 PM Star Ivey MD - 08/03/2018 10:12 PM PDTFormatting of this note might be different f rom the original. . Neuroscience Intensive Care Unit Attending H&P Note Attending Pager #[phone] ICU Admission Reason Most Recent Value ICU Admission reason neuro monitoring following mesh cranioplasty filed at 08/03/2018 120 3 Days in ICU Days in Hospital Documentation Date Row Name 08/03/18 1203 Day of Procedure 08/03/18 Neurosurgical Procedures Neurosurgical Neurosurgical Procedures Right mesh cranioplasty, bilateral latissimus dorsi free fla p, STSG from back HPI Gloria Adhikari is a 68 year old [...] She was discharged home the following day [facility] he presented on 05/14/2018 with [...] She was then advised to present to [facility] ED. The patient had denied any [...] Neuro checks; at risk for CSF leak, [place], UTI, acute blood loss anemia, DVT -Strict [...] Treatment Team Otolaryngology Ipt Critical Care Nsicu #[id number] Treatment Team Ipt Neurosurgery #[id number] Treatment Team Neurological Surgery Code Status Code Status Full Code The Advanced Care Note for this patient can be found under the notes tab in chart review. Quality section A-Line necessity reviewed: Vfgx-oz-kbqg blood pressure monitoring Benavides necessity reviewed: Plan to DC today I have spent a total of 43 minutes in the direct care and management of this patient indepe ndent of any time spent teaching or performing any separately billable procedures. I reviewe d the documented findings, all data and the recent imaging available. Date of Service: 08/03/2018 Author:STAR VARELA MD [address] [id number] signed by Star Varela MD at 08/03/2018 10:40 PM Sarah Mccain MD - 08/03/2018 10:27 AM PDTFormatting of [...] with cranioplasty exposure. [facility] and underwent explant [...] ENT and will see Dr Chandler from ID after this appointment. Ms Adhikari reports that [...] daily. Facility-Administered Medications: None Allergies Allergen Reactions Vermillion Tar Hives Betadine [Povidone-Iodine (With Soap)] Rash Cipro [Ciprofloxacin] Nausea and Vomiting Codeine Hcl Nausea and Vomiting Sulfa (Sulfonamide Antibiotics) Erythema Past Medical History: Diagnosis Date Abnormal LFTs (liver function tests) CAD in quechan artery Chronic pain COPD Essential hypertension GERD [...] and did not need to be redone. MD CHANDRIKA Hansen/NGUYEN /[id number] signed by Ata White MD at 08/14/2018 12:15 PM PDTWax , MD Ata - 08/11/2018 12:07 PM PDTAssociated Order(s): OPERATION RECORDDate of Service: 0 08/03/2018 Attending Surgeon:Ata White MD Dimensional Inspector(s):Dr. Garcia Preoperative Diagnosis: Cranioplasty infection. Postoperative Diagnosis: [...] and the flap was sent up to [facility] d and neck region. The back [...] The vein was measured and a 4.0 cashier or checker stock clerk was utilized . We put the 2 [...] till the end of the case. A [employer] Doppler was placed and there was excellent [...] the end of the procedure. MD CHANDRIKA Hansen/SWAPNILL /[id number] signed by Ata White MD at 08/11/2018 3:14 PM PDTDog Magnolia vo MD - 08/03/2018 6:27 PM PDTAssociated Order(s): OPERATION RECORDDate of Service: 08/03/2018 Attending Surgeon: MD Magnolia Hansen MD Dimensional Inspector(s): MD Abel Clarke MD David J Mazur [...] and loose hardware. She underwent a synthetic crane chaser nioplasty at that time. Unfortunately, she then [...] [facility] given to the anesth esia [...] and anterior to the bone edges. The Langley 1 was used to dissect the scar tissue and periosteum from the inner shinnecock of the bony defect . Tenotomies and [...] of the case. MD Magnolia Benz MD DJM/MODPatricia /[id number] I, Dr. Magnolia Diego certify that I was present for and participated in the critical parts of the procedure. I further certify that I was the principal surgeon for this procedure. MAGNOLIA DIEGO MD [facility] [address]C [address]SI [address] [id number]/[id number] [address] documented in this encou nter Consult Notes [...] function declines significantly Please page clinical pharmacist [phone]) or call central inpatient pharmacy ([phone]) with qu estions. Actual body weight: Weight: [...] pt. Pt discharged to brother's house in [place]. andoff - Sachin Bradley RN - 08/11/2018 2:11 AM PDTNrody g Handoff [facility] IP [facility]URSE HAND[facility] [...] RN - 08/10/2018 7:06 PM PDTNursing Handoff [facility] IP NURSE HANDOFF: [facility] [...] RN - 08/10/2018 12:15 AM PDTNursing Handoff [facility] IP NURSE HANDOFF: [facility] [...] N - 08/09/2018 3:14 AM PDTNursing Handoff [facility] IP NURSE HANDOFF: [facility] [...] RN - 08/08/2018 6:45 PM PDTNursing Handoff [facility] IP NURSE HANDOFF: [facility] [...] within reach at all times (08/05/18 1053) [facility] IP NURSE HANDOFF: [facility] events: Per previous handoff "Admit: 08/03 Rt crane chaser ni and Rt latissimus dorsi free flap [...] RN - 08/07/2018 1:34 PM PDTNursing Handoff [facility] IP NURSE HANDOFF: [facility] [...] PDTNursing Handoff Patient Daily Goal: Sleep (08/05/18 5727) Patient Specific Preferences: family at bedside/TV on/cell phone within reach at all times (08/05/18 1053) [facility] IP NURSE HANDOFF: [facility] [...] in place and strikethrough. Elvin on neck removed 08/06 in AM, small amount of continuous draining from incision. MD aware. Right back Donor site: Dressing intact. [...] PDTNursing Handoff Patient Daily Goal: Sleep (08/05/18 5057) Patient Specific Preferences: family at bedside/TV on/cell phone within reach at all times (08/05/18 1053) [facility] IP NURSE HANDOFF: [facility] [...] forehead with dressing in place and strikethrough. Vici on neck with dried crust surrounding. Right back Donor site: Dressing intact. LAZARA x 2 drains on bulb suction (per Dr Byron Johnson/EnT note this am 08/05/18)" COMFORT/ANXIETY/BEHAVIOR Patient/Family Target: Gloria's pain will be [...] note might be different from the lenin lester. Problem: PT Goals- Adult Goal: Functional Mobility Goal Description Patient will perform sit to stand and pivot transfer independently Patient will ambulate 300 feet independently Patient will be independent with neck and shoulder range of motion exercises Outcome: Goal met Physical Therapy Evaluation [id number] 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 Chronic pain COPD Essential hypertension GERD (gastroesophageal reflux disease) Goiter Hemorrhagic stroke (HCC) 2007 MRSA (methicillin resistant staph aureus) culture positive Otitis media PONV (postoperative nausea and vomiting) Subarachnoid hemorrhage due to ruptured aneurysm (HCC) 2007 Tobacco dependence Past Surgical History: Procedure Laterality Date BLADDER SUSPENSION CHOLECYSTECTOMY CORONARY STENT PLACEMENT 12/28/2014 HYSTERECTOMY LUMPECTOMY OF LEFT BREAST 1978 PARTIAL THYROIDECTOMY Right REMOVAL OF BACK ROLL LATHE OPERATOR SHUNT REPAIR OF ANEURYSM BY CLIPPING TYMPANOPLASTY Right 1987 BACK ROLL LATHE OPERATOR SHUNT Subjective:Patient agreed to work with PT [...] grocery shopping, hobbies- loves to go visit casino, catching up with friends,COPD- uses oxygen at night- patient not sure about level of oxygen at this time Equipment at home: single point cane, electric wheelchair, three wheeled and four wheeled walker Patient / Family Goal: walk Communication/Barriers: Guamanian/none Pain: none endorsed Vital Signs: stable pre [...] or move without loss of balance O Cruzito Carrizales and Tia Adame (2007). Physical rehabilitation: assessment and treatme nt (5th ed.). [place]: Ochoa Anderson [facility]. p.254 Mobility & Transfers: Supine to sit/Sit [...] gait speed progressed to independent Outcome Measure: [facility] BASIC MOBILITY Difficulty turning over in bed [...] A Little - Minimal/Contact Guard Assist/Superv ision [facility] Basic Mobility Total Score 21 Interpretation of [facility] Short Form - Basic Mobility: CMS Modifier [...] PDTNursing Handoff Patient Daily Goal: Sleep (08/05/18 3674) Patient Specific Preferences: family at bedside/TV on/cell phone within reach at all times (08/05/18 1051) [facility] IP NURSE HANDOFF: [facility] [...] within reach at all times (08/05/18 1053) [facility] IP NURSE HANDOFF: [facility] [...] forehead with dressing in place and strikethrough. Vici on neck with dried crust surrounding. Right [...] PRBC yesterday for H&H 09/11. This morning 8.06/15. 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 s/p NSTEMI 12/27/2014; status post stent [...] Bladder suspension 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 Warping Mill Operator shunt Tympanoplasty Right 1987 Lumpectomy of left breast 1978 Coronary stent placement 12/28/2014 status post stent placement in the mid LAD Removal of vp celebrity services shunt Cholecystectomy Patient Lines/Drains/Airways Status Active Lines, Drains and Airways Name: Placement date: Placement time: Site: Days: Drain LAZARA Right Lateral flank 1 08/03/18 1527 flank less than 1 Drain LAZARA Right Medial flank 2 08/03/18 1527 flank less than 1 Drain Vici Right head 3 08/03/18 1914 head less [...] clear at sutures R side of face. Elvin drain at right neck. In sulin gtt [...] Additional pain medication information: Functional Epidural: N/A ROLLER CLEANER: N/A Respiratory: RR: 23 , O2 Sat: 92 % , O2 Delivery: Oxymask Breath Sounds: Ex DARIEN: coarse LLL: RUL: coarse RLL: MELISSA No Comment: Cardiac: BP: 103/59 HR: 104 GI: Nausea/Vomiting Status: No Signs/Symptoms: Interventions: Assessment: Comments: : Last void: benavides in place Contact Name: brothpranay Lr Contact Number: [phone] toi Simental Family contacted: Yes Comment: Belongings:1 bag, helmet, dentures and glasses with patient rief Op Note - Sarah Johns MD - 08/03/2018 6:19 PM PDT Brief Op Note Procedure Date: 08/03/2018 Author: SARAH ENRIQUEZ MD Attending Physician: Mganolia Diego MD (NSGY) and Ata White MD [...] HOB > 30 degrees Initial surgical contact: NSGY resident program director/air personality at pager [phone] Patient Lines/Drains/Airways Status Active Lines, Drains and [...] PA-C - 08/03/2018 4:07 PM PDTAssociated Parvez grossm(s): HTN (hypertension)-SBP goal < 160 -resume home [...] | and did not need to be redone.MELI Hansen/KATHERINED: 08/14/2018 10:32:37DT: 08/14/2018 | | 10:59:02Job #: [id number] | + + OPERATION RECORD (08/11/2018 12:07 PM PDT) + + | Procedure Note | + + | Ata White MD - 08/11/2018 12:07 PM PDT Date of Service: 08/03/2018 Attending | | Surgeon:Ata White MD Dimensional Inspector(s):Dr. Garcia | | Preoperative Diagnosis: Cranioplasty infection.Postoperative [...] The vein was measured and a 4.0 cashier or checker stock clerk was utilized. We put the 2 ends [...] till the end of the case. A [employer] Doppler was placed and there was excellent [...] end of the procedure.Ata | | MELI White/CAROLYNN: 08/11/2018 14:18:44DT: 08/11/2018 14:50:31Job #: [id number] | + + CBC (HEMOGRAM) ONLY (08/10/2018 [...] + | [facility] | [address] | [place] [address] | | | SERVICES, RYAN | RAMSES [...] | | | LABORATORY | | | BENINESE | | | SERVICES, | | | [...] MDRD equation recommended by the National | [facility] | | Kidney Disease Education Program. [...] | + + + + + | [facility] | [address] | [place] [address] | | | SERVICES, CORE | RAMSES [...] (H) | 60 - 99 mg/dL | [facility] - | | | GLUCOSE, | [...] [facility] | [address] | [place], [place] | | | [facility] CARE | [address] | [address] | | | TESTS | | | [...] + | [facility] | [address] | [place] [address] | | | SERVICES, CORE | PARK [...] | | | LABORATORY | | | BENINESE | | | SERVICES, | | | [...] MDRD equation recommended by the National | [facility] | | Kidney Disease Education Program. [...] | + + + + + | [facility] | [address] | [place] [address] | | | SERVICES, CORE | RAMSES [...] (H) | 60 - 99 mg/dL | [facility] - | | | GLUCOSE, | [...] [facility] | [address] | [place], [place] | | | MISTY POINT OF CARE | [address] | [address] | | | TESTS | | | [...] [facility] | [address] | [place], [place] | | | RA[facility] J[facility] OF CARE | [address] | [address] | | | TESTS | | | [...] - [facility] | [address] | [place], [place] | | | [facility] | [address] | [address] | | | TESTS | | | [...] [facility] | [address] | [place] [address] | | | SERVICES, CORE | RAMSES [...] | + + + + + | [facility] | [address] | [place] [address] | | | RYAN ORNELAS | RAMSES [...] | | | LABORATORY | | | BENINESE | | | SERVICES, | | | [...] 8 | 4 - 11 mmol/L | [place] | | | GAP(ALB | | | [...] + | [facility] | [address] | [place] [address] | | | SERVICES, CORE | RAMSES [...] - 120) sec Heparin levels of | [facility] C[facility] | | 0.35 - 0.7 U/mL | | + + + + + + + + | Performing | Address | City/State/Zipcode | Phone Number | | Organization | | | | + + + + + | [facility] | [address] | [place] [address] | | | SERVICES, RYAN | RAMSES [...] [facility] | [address] | [place], [place] | | | MISTY POINT OF CARE | [address] | [address] | | | TESTS | | | [...] - 120) sec Heparin levels of | [facility], CORE | | 0.35 - 0.7 U/mL | | + + + + + + + + | Performing | Address | City/State/Zipcode | Phone Number | | Organization | | | | + + + + + | [facility] | [address] | [place] [address] | | | RYAN ORNELAS | RAMSES [...] + | [facility] | [address] | [place], [place] | | | MISTY POINT OF CARE | [address] | [address] | | | TESTS | | | [...] | + + + + + | [facility] | [address] | [place] [address] | | | SERVICES, CORE | RAMSES [...] (H) | 60 - 99 mg/dL | [facility] - | | | GLUCOSE, | [...] [facility] | [address] | [place], [place] | | | [facility] J[facility] OF CARE | [address] | [address] | | | TESTS | | | [...] + + | [facility] | [address] | [place] [address] | | | SERVICES, CORE | PARK [...] + | [facility] | [address] | [place] [address] | | | SERVICES, CORE | RAMSES [...] | | | LABORATORY | | | BENINESE | | | SERVICES, | | | [...] MDRD equation recommended by the National | [facility] | | Kidney Disease Education Program. [...] | + + + + + | [facility] | [address] | [place] [address] | | | SERVICES, CORE | RAMSES [...] (H) | 60 - 99 mg/dL | [facility] - | | | GLUCOSE, | [...] + + + | [facility] | [address] | [place], [place] | | | [facility] | [address] | [address] | | | TESTS | | | [...] + | [facility] | [address] | [place] [address] | | | SERVICES, CORE | PARK [...] [facility] | [address] | [place], [place] | | | RA[facility]L JAY OF CARE | [address] | [address] | | | TESTS | | | [...] | + + + + + | [facility] | [address] | [place] [address] | | | RYAN ORNELAS | PARK [...] + | [facility] | [address] | [place], [place] | | | MISTY POINT OF CARE | [address] | [address] | | | TESTS | | | [...] + | [facility] | [address] | [place] [address] | | | SERVICES, CORE | PARK [...] | + + + + + | [facility] | [address] | [place] [address] | | | SERVICES, | [address] [...] [facility] | [address] | [place] [address] | | | SERVICES, | [address] [...] + + + + | PRODUCT | [id number] | | [facility] | | | UNIT [...] + + + + | EXPIRATION | [id number] | | [facility] | | | DATE [...] + + + + | BLOOD | [id number] | | [facility] | | | PRODUCT [...] | + + + + + | [facility] | [address] | [place] [address] | | | JOHNSON | RAMSES COURTNEY | | | | TRANSFUSION MEDICINE | [...] (H) | 60 - 99 mg/dL | [facility] - | | | GLUCOSE, | [...] [facility] | [address] | [place], [place] | | | [facility] | [facility] | [address] | | | TESTS | | | [...] + + | [facility] | [address] | [place] [address] | | | SERVICES, CORE | PARK [...] + | [facility] | [address] | [place] [address] | | | SERVICES, CORE | PARK [...] | | | LABORATORY | | | BENINESE | | | SERVICES, | | | [...] MDRD equation recommended by the National | [facility] | | Kidney Disease Education Program. [...] | + + + + + | [facility] | [address] | [place] [address] | | | RYAN ORNELAS | RAMSES [...] + | [facility] | [address] | [place], [place] | | | MISTY POINT OF CARE | [address] | [address] | | | TESTS | | | [...] | + + + + + | [facility] | [address] | [place] [address] | | | SERVICES, CORE | RAMSES [...] (H) | 60 - 99 mg/dL | [facility] - | | | GLUCOSE, | [...] + + + | [facility] | [address] | [place], [place] | | | [facility] | [address] | [address] | | | TESTS | | | [...] + | [facility] | [address] | [place] [address] | | | SERVICES, CORE | RAMSES [...] [facility] | [address] | [place], [place] | | | MISTY POINT OF CARE | [address] | [address] | | | TESTS | | | [...] - 120) sec Heparin levels of | [facility] | | 0.35 - 0.7 U/mL | | + + + + + + + + | Performing | Address | City/State/Zipcode | Phone Number | | Organization | | | | + + + + + | [facility] | [address] | [place] [address] | | | SERVICES, CORE | PARK [...] | + + + + + | [facility] | [address] | [place] [address] | | | SERVICES CORE | [address] | | | [...] | | | LABORATORY | | | BENINESE | | | SERVICES, | | | [...] | + + + + + | [facility] | [address] | [place] [address] | | | SERVICES, CORE | PARK [...] + | [facility] | [address] | [place] [address] | | | SERVICES, CORE | RAMSES [...] + | [facility] | [address] | [place] [address] | | | SERVICES, CORE | RAMSES [...] + | [facility] | [address] | [place], [place] | | | RA[facility]L JAY OF [facility] | [address] | [address] | | | TESTS | | | [...] | | | LABORATORY | | | RYAN ORNELAS | + + + + + + + + | Performing | Address | City/State/Zipcode | Phone Number | | Organization | | | | + + + + + | [facility] | [address] | [place] [address] | | | SERVICES, RYAN | RAMSES [...] [facility] | [address] | [place], [place] | | | MISTY POINT OF CARE | [facility] | [address] | | | TESTS | | | [...] | + + + + + | [facility] | [address] | [place] [address] | | | SERVICES, CORE | RAMSES [...] + + + + | PRODUCT | [id number] | | [facility] | | | UNIT [...] + + + + | EXPIRATION | [id number] | | [facility] | | | DATE [...] + + + + | BLOOD | [id number] | | [facility] | | | PRODUCT [...] [facility] | [address] | [place] [address] | | | SERVICES, | [address] [...] + | [facility] | [address] | [place] [address] | | | SERVICES, CORE | RAMSES [...] [facility] | [address] | [place], [place] | | | MISTY POINT OF CARE | [facility] | [address] | | | TESTS | | | [...] | + + + + + | [facility] | [address] | [place] [address] | | | SERVICES, RYAN | [address] | | | [...] + | [facility] | [address] | [place], [place] | | | RA[facility]L JAY OF CARE | [address] | [address] | | | TESTS | | | [...] [facility] | [address] | [place], [place] | | | MISTY POINT OF CARE | [address] | [address] | | | TESTS | | | [...] [facility] | [address] | [place], [place] | | | RAÚL JAY OF CARE | [facility] | [address] | | | TESTS | | | [...] [facility] | [address] | [place], [place] | | | [facility] | [address] | [address] | | | TESTS | | | [...] [facility] | [address] | [place] [address] | | | SERVICES, CORE | PARK [...] + | [facility] | [address] | [place] [address] | | | SERVICES, CORE | RAMSES [...] (H) | 60 - 99 mg/dL | [facility] - | | | GLUCOSE, | [...] [facility] | [address] | [place], [place] | | | RA[facility]L JAY OF CARE | [facility] | [address] | | | TESTS | | | [...] + | [facility] | [address] | [place], [place] | | | RA[facility]L J[facility] OF [facility] | [address] | [address] | | | TESTS | | | [...] | + + + + + | [facility] | [address] | [place] [address] | | | SERVICES, CORE | RAMSES [...] | | | LABORATORY | | | BENINESE | | | SERVICES, | | | [...] MDRD equation recommended by the National | [facility] | | Kidney Disease Education Program. [...] [facility] | [address] | [place] [address] | | | SERVICES, CORE | PARK [...] | + + + + + | [facility] | [address] | [place] [address] | | | SERVICES, CORE | RAMSES [...] (H) | 60 - 99 mg/dL | [facility] - | | | GLUCOSE, | [...] + + + | [facility] | [address] | [place], [place] | | | MISTY POINT OF CARE | [address] | [address] | | | TESTS | | | [...] [facility] | [address] | [place], [place] | | | MISTY POINT OF CARE | [address] | [address] | | | TESTS | | | [...] | + + + + + | [facility] | [address] | [place] [address] | | | SERVICES, CORE | RAMSES [...] [facility] | [address] | [place], [place] | | | RA[facility]L JAY OF CARE | [address] | [address] | | | TESTS | | | [...] + | [facility] | [address] | [place] [address] | | | SERVICES, CORE | RAMSES [...] [facility] | [address] | [place], [place] | | | MISTY POINT OF CARE | [address] | [address] | | | TESTS | | | | + + + + + OPERATION RECORD (08/03/2018 6:27 PM PDT) + + | Procedure Note | + + | Magnolia Diego MD - 08/03/2018 6:27 PM PDT Date of Service: 08/03/2018 Attending | | Surgeon: MD Magnolia Hansen MD Dimensional Inspector(s): Rosario Pettit | | MD Abel Sanderson [...] operating room | [facility] She was given to the anesthesia staff, [...] to the bone | | edges. The Langley 1 was used to dissect the scar tissue and periosteum from the inner | | shinnecock of the bony defect. Tenotomies and blunt [...] all | | critical portions of the case.Sarah Enriquez, Medardo Diego, MDDJM/MODLDD: | | 08/03/2018 15:19:29DT: 08/03/2018 15:55:39Job #: [id number], Dr. Magnolia Diego | | certify that I was present for and participated in the critical parts of the procedure. | | I further certify that I was the principal surgeon for this procedure.MAGNOLIA DIEGO, | | EZRA Pearson [id number] [facility] [address]/nbl8[place]mktivme, [place] [id number] | |Magnolia Diego MD | |MICHAELM/MODL | | | | | | /[id number] | | | |I, Dr. Magnolia Diego certify that I was present for and participated in the critical parts of the procedure. I further certify that I was the principal surgeon for this procedure. | | | | | | | |MAGNOLIA DIEGO MD | |[facility] | |[address] | |[id number] | |[place] [address] | |[phone] | + + ANTIBODY SCREEN (08/03/2018 10:50 [...] [facility] | [address] | [place] [address] | | | SERVICES, | [address] [...] + | [facility] [facility] | [address] | [place] [address] | | | SERVICES, | [address] [...] [facility] | [address] | [place], [place] | | | [facility]ARE | [address] | [address] | | | TESTS | | | [...] | Dehiscence of operative wound, initial encounter - Primary | + + | Chronic obstructive pulmonary disease (HCC) Chronic airway obstruction, not elsewhere | | classified | + + | Continuous tobacco abuse | + + | HTN (hypertension) Unspecified essential hypertension | + + | Skull defect Unspecified acquired deformity of head | + + | Ischemic cardiomyopathy Other specified forms of chronic ischemic heart disease | + + | Wound dehiscence Disruption of external operation (surgical) wound | + + | History of non-ST elevation myocardial infarction (NSTEMI) Old myocardial infarction | + + | Postoperative anemia due to acute blood loss Acute posthemorrhagic anemia | + + documented in this encounter [...] 08/03/18 at 2225, | | | Until 08/11/18 at 1812, mild | | | pain, headache, fever and/or | | | multimodal pain control, when | | | unable to take oral | | + +---+ | | | + +---+ + +-------+ +---+---+---+ | albuterol 0.083% | Given | 08/04/19 | | | | | (PROVENTIL,VENTOLIN) 2.5 mg /3 mL | | 19 8:00 | | | | | (0.083 %) nebulizer solution 1 | | PM PDT | | | | | dose, Starting [facility] 08/03/18 at | | | | | | | 1953, Until Tue08/03/18 at 2000 | | | | | | [...] | | | | | dose on Tue08/04/18 at 0900, | | AM PDT | [...] | | +---+---+ + +---------+ +-----+---+---+ | ceFAZolin (ANCEF) 2 g in NaCl | New Bag | 08/06/19 | 2 g | | | | 0.9 % (NS) IV 2 g, intravenous, | | 19 11:38 | | | | | EVERY 8 HOURS, First dose on Fri | | PM PDT | | | | | 08/04/18 at 0000, Until | | | | | | | Discontinued | | | | | | + +---------+ +-----+---+---+ +---------+ +-----+---+---+ | New Bag | 08/06/19 | 2 g | | | | | 19 3:33 | | | | | | PM PDT | | | | +---------+ +-----+---+---+ | New Bag | 08/06/19 | 2 g | | | | | 19 8:55 | | | | | | AM PDT | | | | +---------+ +-----+---+---+ + +---+ | | | + +---+ [...] +---+ | | | + +---+ + + + + + +---+ | heparin 25,000 Units in NaCl | Rate/Dos | 08/09/19 | 1,000 | 10 mL/hr | | | 0.9 % (NS) 250 mL (100 Units/mL) | e Verify | 19 5:00 | Units/hr | | | | IV infusion 1-2,500 Units/hr | | AM PDT | | | | | (0.01-25 mL/hr), intravenous, | | | | | | | CONTINUOUS, Starting Tue08/03/18 | | | | | | | at 2230, Until Tue08/08/18 at | | | | | | | 0747 | | | | | | + + + + + +---+ + + + + +---+ | Rate/Dose Verify | 08/09/19 | 1,000 | 10 mL/hr | | | | 19 3:00 | Units/hr | | | | | AM PDT | | | | + + + + +---+ | Rate/Dose Verify | 08/09/19 | 1,000 | 10 mL/hr | | | | 19 12:00 | Units/hr | | | | | AM PDT | | | | + + + + +---+ +---+---+ | | | +---+---+ + +-------+ +---------+---+--------+ | insulin lispro (HUMALOG) | Given | 08/08/19 | 2 Units | | Right | | injection 1-16 Units 1-16 Units, | | 19 10:24 | | | Arm | | subcutaneous, FOUR TIMES DAILY, | | PM PDT | | | | | First dose on Tue08/04/18 at | | | | | | | 1200, Until Discontinued | | | | | | + +-------+ +---------+---+--------+ +-------+ +---------+---+---------+ | Given | 08/06/19 | 2 Units | | Right | | | 19 11:11 | | | Arm | | | PM PDT | | | | +-------+ +---------+---+---------+ | Given | 08/05/19 | 2 Units | | Abdomen | | | 19 9:37 | | | | | | PM PDT | | | | +-------+ +---------+---+---------+ +---+---+ | | | +---+---+ + +---------+ + +-------+---+ | insulin regular in NaCl 0.9% IV | New Bag | 08/05/19 | 0.9 | 0.9 | | | infusion (1 unit/mL) 0.25-50 | | 19 8:50 | Units/hr | mL/hr | | | Units/hr (0.25-50 mL/hr), | | AM PDT | | | | | intravenous, CONTINUOUS, Starting | | | | | | | Clarisa 08/03/18 at 2100, Until Fri | | | | | | | 08/04/18 at 0906 | | | | | | + +---------+ + +-------+---+ + + + +---------+---+ | Rate/Dose Verify | 08/05/19 | 0.5 | 0.5 | | | | 19 8:30 | Units/hr | mL/hr | | | | AM PDT | | | | + + + +---------+---+ | Rate/Dose Verify | 08/05/19 | 1 | 1 mL/hr | | | | 19 7:00 | Units/hr | | | | | AM PDT | | | | + + + +---------+---+ + +---+ | | | + +---+ | insulin regular IV infusion 1 | | | dose, Starting Clarisa 08/03/18 at | | | 2125, Until Tue08/03/18 at 2135 | | + +---+ | | | + +---+ + + + + + +---+ | lactated ringers IV 75 mL/hr, | Rate/Dos | 08/05/19 | 75 mL/hr | 75 mL/hr | | | intravenous, CONTINUOUS, Starting | e Verify | 19 7:00 | | | | | 08/04/18 at 0345, Until Fri | | AM PDT | | | | | 08/04/18 at 0733 | | | | | | + + + + + +---+ + + + + +---+ | Rate/Dose Verify | 08/05/19 | 75 mL/hr | 75 mL/hr | | | | 19 6:00 | | | | | | AM PDT | | | | + + + + +---+ | Rate/Dose Verify | 08/05/19 | 75 mL/hr | 75 mL/hr | | | | 19 5:00 | | | | | | [...] | | | DAILY, First dose on 08/07/18 | | AM PDT | | | [...] | ondansetron (ZOFRAN) injection | Given | 08/05/19 | 4 mg | | | | 4 mg 4 mg, intravenous, EVERY 12 | | 19 12:56 | | | | | HOURS, 2 doses, First dose on | | PM PDT | | | | | 08/04/18 at 0000, Last dose on | | | | | | | 08/04/18 at 1200 | | | | | | + +-------+ +------+---+---+ +-------+ +------+---+---+ | Given | 08/05/19 | 4 mg | | | | | 19 1:55 | | | | | | AM [...] | | +---+---+ + +---------+ +--------+---+---+ | vancomycin (VANCOCIN) IV 500 mg | New Bag | 08/07/19 | 500 mg | | | | 500 mg, intravenous, EVERY 12 | | 19 1:13 | | | | | HOURS, First dose on Tue08/04/18 | | AM PDT | | | | | at 0130, Until Discontinued | | | | | | + +---------+ +--------+---+---+ +---------+ +--------+---+---+ | New Bag | 08/06/19 | 500 mg | | | | | 19 1:25 | | | | | | PM PDT | | | | +---------+ +--------+---+---+ | New Bag | 08/06/19 | 500 mg | | | | | 19 1:40 | | | | | | AM PDT | | | | +---------+ +--------+---+---+ +---+---+ | | | +---+---+ [...] | | 15 doses, First dose on Tue | | | | | | | 08/04/18 at 0900, Last dose on Fri | | | [...]
--- OUTSIDE RECORDS SUMMARY | ~2019-10-22 | XMS | Encounter Summary ---
Demographics + + + | Address | [address] | | | [place] [address] | + + + | Home Phone [...] Providers + +------+ + | Care Machine Icer Name | Role | Phone | + [...] + + | 07/10/ | Hospital | [facility] [address] | Machelle Gaines MD | | | 2019 - | Encounter | [address] | [address] | | | | | [id number] [facility] | [facility], | | | 07/13/ | | [facility], | [place] [address] | | | 2019 | | [place] [address] | [phone] | | | | | [phone] | | | | | | | Adolfo Urbina MD | | | | | | [address] | | | | | | [place], [place] | | | | | | [address] | | | | | | [phone] | | | | | | | [...] MD PCP: Mary Vazquez PA-C Service: [facility] Neurosurgery Diagnoses Principal Final Diagnosis: Wound dehiscence. [...] Discharging Attending: MD Marni Beck PA-C [facility] [address] [facility] [address] [place] [address] documented in t his encounter [...] Vazquez PA-C Admission Date: 07/10/2018 GLORIA BELL, [id number] Hospital Day #3 PROCEDURES: Dr. White (ENT) [...] ANGIE FRENCH PA-C Otolaryngology-Head and Neck Surgery [facility] Pager [phone] Marni Gallardo PA-C - 07/12/2018 1:11 PM [...] 5/5 equal b/l No Pronator Drift No [id number] dysmetria nor ataxia SILT Incision c/d/i. Nylons [...] at bedside (suture) She presents to [facility] with wound dehiscence and exposed hardware now [...] 24-28hr. Marni Manning PA-C Neurological Surgery Pg [phone] Steven Piña PA-C - 07/12/2018 8:07 AM PDTFormatting of this note might be different from the reba naik. DOS: 07/12/2018 Head and Neck Surgery Inpatient Daily Progress Note: Primary Care Provider: Mary Vazquez PA-C Admission Date: 07/10/2018 GLORIA BELL, [id number] Hospital Day #2 PROCEDURES: Dr. White (ENT) [...] FRENCH PA-C Otolaryngology-Head and Neck Surgery [facility] Pager [phone] ossVickie MD, MPH - 07/11/2018 3:52 PM [...] Please contact the Neurosurgery resident on-call pager [phone] with questions or concerns. Vickie Estrada M.D., M.P.H. R2 Resident Physician Neurological Surgery Pager: [phone] signed by Vickie Estrada MD,MPH at 07/11/2018 [...] of the implant. Ata White MD MW/MODL /[id number] signed by Ata White MD at 07/11/2018 3:28 PM PDTAngie Moreno PA-C - 07/11/2018 9:30 AM PDT DOS: 07/11/2018 Head and Neck Surgery Inpatient Daily Progress Note: Primary Care Provider: Mary Vazquez PA-C Admission Date: 07/10/2018 GLORIA MARSHA ONOFRE, [id number] Hospital Day #1 SUBJECTIVE INTERVAL EVENTS: To [...] FRENCH PA-C Otolaryngology-Head and Neck Surgery [facility] Pager [phone] Nettie Knowles PA - 07/11/2018 6:39 AM [...] Gram Stain...........: Gram smear performed at [facility]. Culture: Final Report: No growth after 3 days. Final Report 04/29/2008 Corrected CSF Culture Source...............: Cerebrospinal Fluid RLB Gram Stain...........: Gram smear performed at [facility]. Culture: Rare Methicillin resistant Staphylococcus aureus Final ID MRSA Cefazolin R Clindamycin S Erythromycin R Oxacillin R Penicillin R Tetracycline S Trimeth/Sulfa S Vancomycin S Final Report Comment: Test performed at [facility]. 03/07/2008 Corrected CSF Culture Source...............: Cerebrospinal Fluid RLB Gram Stain...........: Gram smear performed at [facility]. Culture: Final Report: No growth after 3 days. Final Report Comment: Test performed at [facility]. 03/03/2008 Corrected CSF Culture Source...............: Cerebrospinal Fluid RLB Gram Stain...........: Gram smear performed at [facility]. Culture: Final Report: No growth after 3 days. Final Report Comment: Test performed at [facility]. 03/03/2008 Corrected Wound Culture Source...............: Skin Abscess RLB Gram Stain...........: Rare Squamous epithelial cells Rare PMN's Rare Gram positive cocci Culture: 1+ Methicillin resistant Staphylococcus aureus Final ID MRSA Cefazolin R Clindamycin S Erythromycin R Oxacillin R Penicillin R Tetracycline S Trimeth/Sulfa S Vancomycin S Final Report Resulted: 03/05/08 RLB ([facility]) [facility] [address] [place] [address] Comment: Test performed at [facility]. CULTURE RESULT Date Value Ref Range [...] at bedside (suture) She presents to [facility] with wound dehiscence and exposed hardware. Plan for surgery today vi a explant of cranioplasty and primary wound closure by Dr White. PLAN: OR today for cranioplasty explant and primary wound closure. Anticipate return to 10K post op. NPO. Resume lisinopril post op. Continue atorvastatin, spironolactone, metoprolol. Nicotine patch. Post operative wound care per ENT. ANSON MULLINS [facility] [address] [address] [address] Doug Dhaliwal M D - 07/10/2018 3:38 [...] Please contact the Neurosurgery resident on-call pager [phone] with questions or concerns. Vickie Estrada M.D., M.P.H. R2 Resident Physician Neurological Surgery Pager: [phone] signed by Doug Aponte MD at 07/10/2018 8:01 PM PDTdocutrina cnitron in this encounter Procedure Notes Adolfo Urbina MD - 07/11/2018 3:24 PM PDTAssociated Order(s): OPERATION RECORDDate of Serv ice: 07/11/2018 Attending Surgeon: Adolfo Urbina MD Imager(s): Kari Cavazos MD Preoperative Diagnoses: 1. Wound [...] imaging. Initial Surgical Contact: Neurosurgery at pager [phone]. Indications For Procedure: Please see [facility] for full details, but briefly, Marisela Bell [...] desiring cranioplasty for cosmetic reasons. We did counselor camp her that she may require a free [...] back to the operating room on a [facility]. She was intubated without difficult y by [...] correct x2. MD Adolfo Emmanuel MD JLG/NGUYEN /[id number] aAta michael MD - 07/12/19 2:21 PM [...] up, woken up, extubated and sent to [facility] recovery room. Ata White MD MW/MODL /[id number] signed by Ata White MD at 07/11/2018 [...] above Past Histories Allergies: Allergies Allergen Reactions Latimer Tar Hives Betadine [Povidone-Iodine (With Soap)] Rash Cipro [Ciprofloxacin] Nausea and Vomiting Codeine Hcl Nausea and Vomiting Sulfa (Sulfonamide Antibiotics) Erythema Past Surgical History Procedure Laterality Date Partial thyroidectomy Right Hysterectomy Bladder suspension 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 [employer] shunt Tympanoplasty Right 1987 Lumpectomy of left breast 1979 Coronary stent placement 12/28/2014 status post stent placement in the mid LAD Removal of vp hr diversity shunt Cholecystectomy Past Medical History: Diagnosis Date Abnormal LFTs (liver function tests) CAD in [place] artery s/p NSTEMI 12/27/2014; status post stent [...] for input(s): FIO2, PH, PCO2, PO2, HCO3, BLOFZ5VXM, J1PRHEDT, D3WDWXUPF in the l ast 720 hours. CSF [...] Gram Stain...........: Gram smear performed at [facility]. Culture: Final Report: No growth after 3 days. Final Report 04/29/2008 CSF Culture Source...............: Cerebrospinal Fluid RLB Gram Stain...........: Gram smear performed at [facility]. Culture: Rare Methicillin resistant Staphylococcus aureus Final [...] primary closure Doug Aponte MD Neurosurgery PGY2 [id number] Risk and Morbidity Patient Risk Modifiers - Including but not limited to. Age: 68 y.o. female DNR: Prior Transfer status/urgency : From Outside Hospital : From [facility] ER: Symptom Onset: Less than 12 hours [...] Best Eye Response: 4-->(E4) spontaneous (07/10/18920) Score ([place] Coma Scale): 15 (07/10/18920) Comatose State: If GCS<9 Then patient by definition is in a comatose state Score ([place] Coma Scale) Min: 15 Max: 15 Loss [...] weeks. Continuous tobacco abuse Coronary arteriosclerosis in [place] artery 03/06/2015 History of non-ST elevation myocardial [...] additions o r exceptions. Adolfo Urbina MD Automotive Teacher - Skull base and Cerebrovascular Neurosurgery Department of Neurological Milliner HelperAutomotive Teacher - Interventional Neuroradiology Alex Ochoa Department of Interventional Radiology [facility] Mel Blanca MD - 07/10/2018 9:34 AM [...] ruptured aneurysm (HCC) 2007 Goiter CAD in [place] artery s/p NSTEMI 12/27/2014; status post stent placement in the mid LAD Abnormal LFTs (liver function tests) MRSA (methicillin resistant staph aureus) culture positive post cariotomy for SAH Hemorrhagic stroke (HCC) 2007 aneurysm PONV (postoperative nausea and vomiting) Past Surgical History Procedure Date Partial thyroidectomy Hysterectomy Bladder suspension 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 [employer] shunt Tympanoplasty 1987 Lumpectomy of left breast 1979 Coronary stent placement 12/28/2014 status post stent placement in the mid LAD Removal of vp hr diversity shunt Cholecystectomy Social History Tobacco Use Smoking status: Current Every Day Smoker Packs/day: 1.00 Years: 50.00 Pack years: 50.00 Types: Cigarettes Smokeless tobacco: Never Used Tobacco comment: Substance Use Topics Alcohol use: No Alcohol/week: 0.0 oz Drug use: No Family History Problem Relation Additional Family History Mother dementia Cancer Father brain Cancer Brother lung Allergies Allergen Reactions Latimer Tar Hives Betadine [Povidone-Iodine (With Soap)] Rash [...] Resident Physician, PGY1 Otolaryngology, H&N Surgery Pager [phone] Associated attestation - Ata White MD - [...] weeks. Continuous tobacco abuse Coronary arteriosclerosis in [place] artery 03/06/2015 History of non-ST elevation myocardial [...] ruptured aneurysm (HCC) 2007 Goiter CAD in [place] artery s/p NSTEMI 12/27/2014; status post stent placement in the mid LAD Abnormal LFTs (liver function tests) MRSA (methicillin resistant staph aureus) culture positive post cariotomy for SAH Hemorrhagic stroke ([facility]) 2007 aneurysm PONV (postoperative nausea and vomiting) Past Surgical History Procedure Date Partial thyroidectomy Hysterectomy Bladder suspension 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 [employer] shunt Tympanoplasty 1987 Lumpectomy of left breast 1979 Coronary stent placement 12/28/2014 status post stent placement in the mid LAD Removal of vp hr diversity shunt Cholecystectomy Medications Prior to Admission Medications [...] daily. Facility-Administered Medications: None Allergies Allergen Reactions Latimer Tar Hives Betadine [Povidone-Iodine (With Soap)] Rash [...] Discussed this case with neurosurgery resid ent conditioning yard supervisor and they will accept to their service. Given no fevers and hemodynamically stabl e, no indication for empiric antibiotics at this point. Spoke with ENT conditioning yard supervisor who did the procedure last month, they [...] co-wrote the ED Provider Note using the SessionM share function. I agree with the documentation [...] d aneurysm (HCC) 2007, Goiter, CAD in [place] artery s/p NSTEMI 12/27/2014; status post stent [...] - 07/12/2018 5:14 PM PDTNursing Handoff [facility] IP NURSE HANDOFF: Nesbitt hospital course events: [...] d aneurysm (HCC) 2007, Goiter, CAD in [place] artery s/p NSTEMI 12/27/2014; status post stent [...] RN - 07/12/2018 2:07 PM PDTNursing Handoff [facility] IP NURSE HANDOFF: Nesbitt hospital course events: [...] Patient Daily Goal: increase fluids (07/11/18 2330) [facility] IP NURSE HANDOFF: Nesbitt hospital course events: [...] of new implant. She presents to [facility] today with exposed synthetic bone flap and [...] pain medication information: none Functional Epidural: N/A SURGICAL SERVICES TECH: N/A Respiratory: RR: 15 , O2 Sat: 92 % , O2 Delivery: Nasal cannula Breath Sounds: Ex DARIEN: LLL: RUL: RLL: MELISSA No Comment: persistent cough and has COPD Cardiac: BP: 106/47 HR: 71 GI: Nausea/Vomiting Status: Yes- Signs/Symptoms: intermittent nausea Interventions: antiemetic given Assessment: relief of signs/symptoms Comments: resolved : Last void: preop Contact Name: Feb Contact Number: [phone] Family contacted: Yes Comment: no answer Belongings: [...] imaging Initial surgical contact: neurosurgery at pager [phone] Patient Lines/Drains/Airways Status Active Lines, Drains and [...] Daily Goal: get rest (07/11/18 0005) [facility] IP NURSE HANDOFF: Nesbitt hospital course events: [...] of new implant. She presents to [facility] today with exposed synthetic bone flap and [...] Daily Goal: prepare for surgery tomorrow (07/10/18 4844) [facility] IP NURSE HANDOFF: Nesbitt hospital course events: [...] of new implant. She presents to [facility] today with exposed synthetic bone flap and [...] Attending | | Surgeon: Adolfo Urbina MD Imager(s): Kari Cavazos MD | | Preoperative Diagnoses: [...] Surgical Contact: Neurosurgery | | at pager [phone].Indications For Procedure: Please see Epic for full [...] desiring cranioplasty for cosmetic reasons. We did counselor camp her that | | she may require [...] brought back to the operating room on [facility]. She was | | intubated without difficulty [...] 07/11/2018 15:04:23DT: 07/11/2018 | | 15:24:02Job #: [id number] | | | |Indications For Procedure: Please see [facility] for full details, but briefly, Marisela Bell [...] plasty for cosmetic reasons. We did | |counselor camp her that she may require a free [...] back to the operating room on a [facility]. She was intubated without difficult y by [...] |JLG/MODL | | | | | | /[id number] | + + CAPILLARY BLOOD GLUCOSE (NO [...] + | MICHELLE Oliva [facility] | [address] [facility] | [place], [place] | | | [facility] | [address] | [address] | | | TESTS | | | [...] | MELI/KATHERINED: 07/11/2018 14:09:26DT: 07/11/2018 14:21:09Job #: [id number] | | | | | |Ata White MD | |CHANDRIKA/NGUYEN | | | | | | /[id number] | + + CULTURE, FUNGAL EXCEPT BLOOD, [...] + | [facility] | [address] | [place] [address] | | | [place] | | | [...] + | [facility] | [address] | [place] [address] | | | [place] | | | | + + + [...] | + + + + + | [facility] | [address] | [place] [address] | | | [place] | | | | + + + [...] [facility] | [address] | [place] [address] | | | SERVICES, CORE | PARK [...] | + + + + + | [facility] | [address] | [place] [address] | | | SERVICES, CORE | [address] [...] [facility] | [address] | [place] [address] | | | SERVICES, CORE | PARK [...] [facility] | [address] | [place] [address] | | | [facility]AN [facility] | [address] [...] [facility] | [address] | [place] [address] | | | SERVICES, RYAN | [address] [...] | | | LABORATORY | | | GABONESE | | | SERVICES, | | | | | | CORE | | + +---------+ + + + | EGFR NON | >60 | >60 mL/min | [facility] | | | -[facility] | | | [facility] | | | [...] + + + + + | [facility] | [address] | [place] [address] | | | SERVICES, CORE | [address] [...]
--- OUTSIDE RECORDS SUMMARY | ~2019-10-22 | XMS | Encounter Summary ---
Demographics + + + | Address | [address] | | | [place] [address] | + + + | Home Phone [...] Team Providers + +------+ + | Care [employer] Director Name | Role | Phone | [...] + + + + | 05/08/ | Hospital | [facility] [address] | Magnolia Diego MD | | | 2019 - | Encounter | [address] | [address] | | | | | [id number] [facility] | [place], [place] | | | 05/10/ | | [facility], | [address] | | | 2018 | | [place] [address] | [phone] | | | | | [phone] | | | +--------+ + + + [...] Diego MD PCP: Mary Vazquez PA-C Service: [facility] Neurosurgery Diagnoses Principal Final Diagnosis: Right frontotemporal [...] AM Discharging Attending: MD Marni Woods PA-C [address] 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 Yes Current Assessment & Plan -see [...] 4L but did not travel here to [facility] with it -stable on 4L NC -RT [...] Provider Role Specialty Ipt Critical Care Nsicu #[id number] Treatment Team Ipt Neurosurgery #[id number] Treatment Team Neurological Surgery Patient Lines/Drains/Airways Status Active Lines, Drains and Airways Name: Placement date: Placement time: Site: Days: Peripheral IV Left Forearm 18 g 05/08/18 0731 Forearm less than 1 Peripheral IV Left Dorsal Hand 16 g Hand Wound Left thumb Other (Comment) 12/03/17 2200 thumb 155 Wound Midline coccyx Pressure ulcer [...] of Service: 05/09/2018 KOKO KNIGHT EP[facility] DEPARTMENT: [facility] NE[facility]O Place of Service:- Inpatient CSN: [id number] Suggested Modifier: None Suggested CPT: TO SILK SCREEN PROCESSOR KOKO Hoang Author:KOKO KNIGHT [address] [id number] signed by KOKO Hoang at 05/26/2018 1:38 [...] ASSESSMENT/PLAN: 68 y.o. 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 Neurologically intact. Transfer to cooper JOSE M EATON MD,PhD Resident Neurological Surgery Pgr. [id number] Associated attestation - Casey Hewitt MD - [...] medication information: see MAR. Functional Epidural: No GROCERY CHECKER: No Respiratory: RR: 15 , O2 Sat: 93 % , O2 Delivery: Nasal cannula Breath Sounds: Ex DARIEN: LLL: RUL: RLL: MELISSA No Comment: Cardiac: BP: 116/61 HR: 67 GI: Nausea/Vomiting Status: No Signs/Symptoms: Interventions: Assessment: Comments: : Last void: goins Contact Name: Juan (sister in law) Contact Number: [phone] Family contacted: Yes Comment:Juan updated via phone. [...] Giovanni Vincent MD PGY-5 Neurological Surgery Pager [phone] documented in this enco unter H&P Notes Susy Vallecillo MD - 05/08/2018 1:14 PM PDTFormatting of this note might be different fr om the original. . 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 Seen with PA/BALANCE AND HAIRSPRING ASSEMBLER Amaya Norton. Please see their note for details. I reviewed the documented findings, all data and the recent imaging available. Date of Service: 05/08/2018 Author:SUSY VALLECILLO MD [place] [phone] maya Norton, L.V. [facility] - 05/08/2018 1:00 PM PDT . 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 Yes Current Assessment & Plan -see [...] Abnormal LFTs (liver function tests) CAD in wales artery s/p NSTEMI 12/27/2014; status post stent placement in the mid LAD Chronic pain COPD on oxygen at night Essential hypertension GERD (gastroesophageal reflux disease) Goiter Hemorrhagic stroke ([facility]) 2007 aneurysm MRSA (methicillin resistant staph aureus) culture positive post cariotomy for SAH Otitis media recent abx preadmit PONV (postoperative nausea and vomiting) Subarachnoid hemorrhage due to ruptured aneurysm ([facility]) 2007 Tobacco dependence Past Surgical History Procedure Laterality Date Partial thyroidectomy Right Hysterectomy Bladder suspension 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 Software Installer shunt Tympanoplasty Right 1987 Lumpectomy of left breast 1978 Coronary stent placement 12/28/2014 status post stent placement in the mid LAD Removal of vp purchasing shunt Cholecystectomy Allergies Allergen Reactions Erie Tar Hives Betadine [Povidone-Iodine (With Soap)] Rash [...] Provider Role Specialty Ipt Critical Care Nsicu #00189 Treatment Team Ipt Neurosurgery #[id number] Treatment Team Neurological Surgery Patient Lines/Drains/Airways Status Active Lines, Drains and Airways Name: Placement date: Placement time: Site: Days: Peripheral IV Left Forearm 18 g 05/08/18 0731 Forearm 1 Wound Left thumb Other (Comment) 12/03/172199 thumb 156 Wound Midline coccyx Pressure ulcer 12/03/17 220 coccyx 156 Incision Right head 12/05/172126 154 Incision Right adb- upper quadrant 12/05/17 [...] e. Date of Service: 05/08/2018 KOKO KNIGHT [facility] DEPARTMENT: [facility] NEURO Place of Service:- Inpatient CSN: [id number] Suggested Modifier: None Suggested CPT: TO SILK SCREEN PROCESSOR KOKO Hoang Author:KOKO KNIGHT [address] [id number] signed by KOKO Hoang at 05/09/2018 11:10 [...] daily. Facility-Administered Medications: None Allergies Allergen Reactions Erie Tar Hives Betadine [Povidone-Iodine (With Soap)] Rash Cipro [Ciprofloxacin] Nausea and Vomiting Codeine Hcl Nausea and Vomiting Sulfa (Sulfonamide Antibiotics) Erythema Past Medical History: Diagnosis Date Abnormal LFTs (liver function tests) CAD in wales artery Chronic pain COPD Essential hypertension GERD [...] OS ptosis Face symmetric, tongue midline BUE: 06/25, no drift BLE: 06/25 Impression/Diagnosis: acquire skull defect Surgical Plan: Neurosurgery to perform Right synthetic cranioplasty; ENT possible flap acosta SANCHEZ Reviewed, consent on chart. Please contact the Neurosurgery resident on-call pager [phone] with questions or concerns. Vickie Estrada M.D., M.P.H. R2 Resident Physician Neurological Surgery Pager: [phone] signed by Magnolia Diego MD at 05/16/2018 9:09 AM PDTdocumented i n this encounter Procedure Notes Ata White MD - 05/08/2018 2:53 PM PDTAssociated Order(s): OPERATION RECORDDate of Service : 05/08/2018 Attending Surgeon:Ata White MD Wool Fleece Grader(s):Abel Pratt MD Preoperative Diagnosis: Cranioplasty. Postoperative Diagnosis: [...] nyl on in a running continuous fashion. MD CHANDRIKA Hansen/MODL /[id number] signed by Ata White MD at 05/08/2018 3:33 PM PDTDog Magnolia vo MD - 05/08/2018 1:14 PM PDTAssociated Order(s): OPERATION RECORDDate of Service: 05/08/2018 Attending Surgeon: Magnolia Diego MD Co-Surgeon: Ata White MD. Wool Fleece Grader(s): Giovanni Vincent MD. Preoperative Diagnosis: Right frontotemporal [...] patient's eyes were taped shut to p revent corneal abrasion. The patient's bed was turned. The patient's head was placed in a horseshoe headline writer, and all pressure points were carefully padded. [...] and then affixed them to th e wales skull until they sat flush. Due to [...] further recovery. MD Magnolia Dudley MD CHANTALE/MODL /[id number] I, Dr. Magnolia Diego certify that I was present for and participated in the critical parts of the procedure. I further certify that I was the principal surgeon for this procedure. MAGNOLIA DIEGO MD [facility] [address] [facility]/[place] [address] documented in this encou nter Miscellaneous Notes [...] 4L but did not travel here to [facility] with it -stable on 4L NC -RT [...] Evaluated for treatment under home maintenance therapy. ussein - Carmella Arriola RN - 05/10/2018 2:13 AM PDTNursing Handoff Patient Daily Goal: sleep and go home tomorrow (05/09/181938) [facility] IP NURSE HANDOFF: Nesbitt hospital course events: [...] cranioplasty. She was discharged home with a [facility] and received IV ceftriaxone for 6 weeks. [...] had BM x2 this shift - RT family service caseworker left O2 tank (x2) at bedside for discharge. Pt continuing to need supplementa l O2 to keep O2 sats >88% Barriers to discharge: DC to home today AM?- Son Augusto will drive from [place] to come [facility] k her up in the AM. andoff - Ricarda Navarro RN - 05/09/2018 2:54 PM PDTNursing Handoff Patient Daily Goal: no more stool softeners (05/09/18 3141) [facility] IP NURSE HANDOFF: Nesbitt hospital course events: [...] cranioplasty. She was discharged home with a [facility] and received IV ceftriaxone for 6 weeks. [...] had BM x2 this shift - RT family service caseworker left O2 tank (x2) at bedside for discharge. Pt continuing to need supplementa l O2 to keep O2 sats >88% Barriers to discharge: DC to home tomorrow AM- [place] [facility] [place] the AM. andoff - John John RN - 05/09/2018 1:12 PM PDTNursing Handoff [facility] IP NURSE HANDOFF: Nesbitt hospital course events: [...] tomorrow AM. Son Augusto will drive from [place] to come pick her up in the AM. RT family service caseworker left O2 tank (x2) at bedside for discharge. Pt continuing to need supplemental O2 to keep O2 sats >88% lan of Care - Rula Pacheco, PT - 05/09/2018 9:53 AM PDTFormatting of this note might be different from the orig inal. 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 female HD#1 with CAD, UT s/p s tent on ASA/plavix, HTN, previous [...] Abnormal LFTs (liver function tests) CAD in wales artery Chronic pain COPD Essential hypertension GERD (gastroesophageal reflux disease) Goiter Hemorrhagic stroke (HCC) 2007 MRSA (methicillin resistant staph aureus) culture positive Otitis media PONV (postoperative nausea and vomiting) Subarachnoid hemorrhage due to ruptured aneurysm ([facility]) 2007 Tobacco dependence Past Surgical History: Procedure Laterality Date BLADDER SUSPENSION CHOLECYSTECTOMY CORONARY STENT PLACEMENT 12/28/2014 HYSTERECTOMY LUMPECTOMY OF LEFT BREAST 1979 PARTIAL THYROIDECTOMY Right REMOVAL OF SCIENTIFIC SOFTWARE DEVELOPER SHUNT REPAIR OF ANEURYSM BY CLIPPING TYMPANOPLASTY Right 1987 SCIENTIFIC SOFTWARE DEVELOPER SHUNT Living Environment: Patient lives alone in [...] room air fluctuating from 85-91%. Outcome Measure: [facility] BASIC MOBILITY Difficulty turning over in [...] w/railing 4 - None - Modified Independent/Independent [facility] Basic Mobility Total Score 24 Interpretation of [facility] Short Form - Basic Mobility: CMS [...] repiratory DME needed for discharge RT DC Scourer delivered 2 tanks for patient discharge to home. Patient might stay with brother in [place] instead of go home to [place]. If patient goes to [place] and stays with her brother, RT DCP with have vendor deliver concen trator. Vendor is [facility] [place] [phone], and [facility] [phone]. The RT material planner will continue to follow . Pager [phone] with any questions. andoff - Nataliya Martinez RN - 05/09/2018 2:35 AM PDTNursing Handoff [facility] IP NURSE HANDOFF: Nesbitt hospital course events: [...] of Care / Advance Care NSICU ASSIGNED #[id number] Date: 05/08/18 Advanced Directives: The patient does not have an advance directive in the EMR. A POLST is not indicated in the EMR. Healthcare Agent(s): Surrogate decision maker has been identified and is : Venessa Gerard (Daughter) , patents can be contacted at . The surrogate decision maker has been listed as the e mergency contact within [employer]. Code Status: Current Code Status Date Active Code Status Order ID Comments User Context 05/08/2018 7:07 AM Full Code [id number] Millicent Tony MD Inpatient Code History: Code Status History Date Active Date Inactive Code Status Order ID Comments User Context 12/03/2017 9:59 PM 12/10/2017 2:28 AM Full Code [id number] Tommie Zarco MD Inpatient 10/23/2015 3:47 PM 10/25/2015 6:29 PM Full Code [id number] Antoinette Adkins MD,PhD Inpatient 10/23/2015 6:46 AM 10/23/2015 3:47 PM Full Code [id number] Tommie Bliss Inpatient 06/07/2014 9:11 AM 06/08/2014 6:06 PM Full Code [id number] Angel Mazariegos MD Inpatient 06/07/2014 6:13 AM 06/07/2014 9:11 AM Full Code [id number] Beny Cruz MD Inpatient 05/13/2008 4:34 PM 05/14/2008 7:21 PM Full Code [id number] Alli Junior MD Inpatient 04/11/2008 5:27 PM 04/13/2008 11:04 PM Full Code [id number] Saskia Nguyen RN Inpatient 03/03/2008 1:17 PM 03/08/2008 10:09 PM Full Code [id number] To Prieto MD Inpatient 03/03/2008 1:16 PM 03/03/2008 1:16 PM DNR/DNI [id number] To Prieto MD Inpatient 03/03/2008 12:06 AM 03/03/2008 1:16 PM Full Code [id number] Marlon Mcintyre MD Inpatient 10/30/2007 10:53 PM 11/02/2007 8:59 PM Full Code [id number] Antoinette Saenz, ALEKSANDAR Inpatient 10/18/2007 5:01 AM 10/30/2007 10:53 PM Full Code [id number] Norberto E Mami Inpatient Narrative Summary of Conversation: Patient [...] RN - 05/08/2018 3:37 PM PDTNursing Handoff [place] IP NURSE HANDOFF: [...] acute care tomorrow ssessment & Plan N ote - Amaya Norton ACNP - 05/08/2018 1:26 PM PDTAssociated Problem(s): History of non-S T elevation myocardial infarction (NSTEMI)-see ischemic cardiomyopathy plan aboveElectronica lly signed by KOKO Hoang at 05/08/2018 1:26 PM PDTAssessment & Plan Note - Amaya Norton ACNP - 05/08/2018 1:26 PM PDTAssociated Problem(s): CAD in wales artery-see isc hemic cardiomyopathy plan above ssessment [...] g Hand Wound Left thumb Other (Comment) 12/03/172199 thumb 155 Wound Midline coccyx Pressure ulcer 12/03/17 220 coccyx 155 Incision Right head 12/05/172126 153 Incision Right adb- upper quadrant 12/05/17 154 Incision Right head- frontal 05/08/18 less than 1 Urethral Catheter Temp-probe Goins 16 Fr. 05/08/18 0845 Temp-probe Goins less than 1 Arterial Line Standard Left Radial 20g 05/08/18 1010 Radial less than 1 GIOVANNI VINCENT MD [id number] signed by Magnolia Diego MD at 05/16/2018 [...] + + | [facility] | [address] | [place] [address] | | | SERVICES, CORE | PARK [...] [facility] | [address] | [place] [address] | | | SERVICES, CORE | [address] [...] [facility] | [address] | [place] [address] | | | SERVICES, CORE | PARK [...] | | | LABORATORY | | | GREEK | | | SERVICES, | | | [...] the MDRD equation recommended by the | [facility] | | National Kidney Disease Education Program. Estimated GFR | LABORATORY | | Interpretive Information: <60 mL/min/1.73 sq m | [facility]AN [place]ELAS | | Chronic Kidney Disease <15 mL/min/1.73 [...] | + + + + + | [facility] | [address] | [place] [address] | | | RYAN [place]NELAS | [address] | | | + + + + + PROCEDURE NOTE (05/08/2018 10:26 PM PDT)OPERATION RECORD (05/08/2018 2:53 PM PDT) + + | Procedure Note | + + | Ata White MD - 05/08/2018 2:53 PM PDT Date of Service: 05/08/2018 Attending | | Surgeon:Ata White MD Wool Fleece Grader(s):Abel Pratt MD | | Preoperative Diagnosis: Cranioplasty.Postoperative [...] | MDMW/MODLDD: 05/08/2018 14:29:00DT: 05/08/2018 14:53:38Job #: [id number] | |starting to come through the skin, [...] |MW/MODL | | | | | | /[id number] | + + CBC (HEMOGRAM) ONLY (05/08/2018 [...] | + + + + + | [facility] | [address] | [place] [address] | | | SERVICES, CORE | [address] | | | + + + + + OPERATION RECORD (05/08/2018 1:14 PM PDT) + + | Procedure Note | + + | Magnolia Diego MD - 05/08/2018 1:14 PM PDT Date of Service: 05/08/2018 Attending | | Surgeon: Magnolia Diego MD Co-Surgeon: Ata White MD. Wool Fleece Grader(s): Giovanni | | MD Rakesh. Preoperative Diagnosis: [...] was placed | | in a horseshoe headline writer, and all pressure points were carefully padded. [...] then affixed them | | to the wales skull until they sat flush. Due to [...] 05/08/2018 11:22:05DT: 05/08/2018 | | 13:14:51Job #: [id number], Dr. Magnolia Diego certify that I was present for and | | participated in the critical parts of the procedure. I further certify that I was the | | principal surgeon for this procedure.MAGNOLIA DIEGO MDFREEM[facility] [id number] [facility] | | [id number], [place] [phone] | | | |I, Dr. Magnolia Diego certify that I was present for and participated in the critical parts of the procedure. I further certify that I was the principal surgeon for this procedure. | | | | | | | |MAGNOLIA DIEGO MD | |[facility] 10K | |[address] | |[id number] | |[place] [address] | |[phone] | + + CT HEAD WO CONTRAST [...] MD Claudio 05/08/2018 1:03 PM Preliminary: Brandon Snyder MD Dictation initiated: Brandon Snyder MD | | | 05/08/2018 12:59 PM | | + + + + + | Procedure Note | + + | Service Account, e-Tag Res In Interface - 05/08/2018 1:05 PM [...] Brandon Snyder MD | |Dictation initiated: Brandon Snyder MD 05/08/2018 12:59 PM | + + [...] | | | LABORATORY | | | GREEK | | | SERVICES, | | | [...] | + + + + + | [facility] | [address] | [place] [address] | | | SERVICES, CORE | [address] [...] (H) | 60 - 99 mg/dL | [facility] - | | | GLUCOSE, | | [...] | [facility] | [address] | [place], [place] | | | RAÚL JAY OF OLIVIA | [facility] | [address] | | | TESTS | | | | + + + + + ABG-YUNIER GERBER (05/08/2018 9:01 AM PDT) + + [...] | IONIZED CA, | | mmol/L | MAR[facility] | | | POC | | | [...] + | [facility] | [address] | [place], [place] | | | [place] [facility] | [address] | [address] | | | TESTS | | | [...] | + + + + + | [facility] | [address] | [place] [address] | | | SERVICES, CORE | RAMSES [...] | | | LABORATORY | | | GREEK | | | SERVICES, | | | [...] | + + + + + | [facility] | [address] | [place] [address] | | | SERVICES, CORE | [address] [...] | + + + + + | [facility] | [address] | [place] [address] | | | RYAN ORNELAS | [address] [...] [facility] | [address] | [place] [address] | | | SERVICES, | [address] [...] | + + + + + | [facility] | [address] | [place] [address] | | | SERVICES, | [address] [...] [facility] | [address] | [place], [place] | | | MISTY POINT OF CARE | [facility] | [address] | | | TESTS | | | [...] + + | SAH (subarachnoid hemorrhage) (HCC) - Primary Subarachnoid hemorrhage | + + | Communicating hydrocephalus (HCC) Communicating hydrocephalus | + + | Skull defect Unspecified acquired deformity of head | + + | HTN (hypertension) Unspecified essential hypertension | + + | Ischemic cardiomyopathy Other specified forms of chronic ischemic heart disease | + + | Chronic obstructive pulmonary disease (HCC) Chronic airway obstruction, not elsewhere | | classified | + + | PONV (postoperative nausea and vomiting) Nausea with vomiting | + + | Tobacco dependence Tobacco use disorder | + + | Acute postoperative pain Other acute postoperative pain | + + | 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 Coronary atherosclerosis of wales | | coronary artery | + + | History of non-ST elevation myocardial infarction (NSTEMI) Old myocardial infarction | + + documented in this encounter Administered Medications + +--------+ + +------+------+ | Medication Order | MAR | Action | Dose | Rate | Site | | | Action | Date | | | | + +--------+ + +------+------+ | acetaminophen (TYLENOL) tablet | Given | 05/09/19 | 1,000 mg | | | | 1,000 mg 1,000 mg, oral, | | 19 7:43 | | | | | PREPROCEDURE ONCE, 1 dose, | | AM PDT | | | | | Starting Tue05/08/18 at 0707, | | | | | | | Until Tue05/08/18 at 0743 | | | | | | + +--------+ + +------+------+ +---+---+ | | | +---+---+ + +-------+ [...] +-------+ +--------+---+---+ +-------+ +--------+---+---+ | Given | 05/10/19 | [...] | | | | | dose on Tue05/08/18 at 1100, | | AM PDT | [...] | +---+---+ + +-------+ +------+---+---+ | ipratropium-albuterol (CRISTHIANO-NEB) | Given | 05/09/19 | 3 mL | | | | nebulizer solution 3 mL 3 mL, | | 19 7:43 | | | | | inhalation, ONCE, 1 dose, Mon | | AM PDT | | | | | 05/08/18 at 0730 | | | | | | + +-------+ +------+---+---+ +---+---+ | | | +---+---+ + +-------+ +------+---+---+ | ipratropium-albuterol (DUO-NEB) | Given | 05/10/19 | 3 mL | | | | nebulizer solution 3 mL 3 mL, | | 19 8:25 | | | | | inhalation, TWICE DAILY, First | | AM PDT | | | | | dose on Tue05/08/18 at 1100, | | | | | | | Until Discontinued | | | | | | + +-------+ +------+---+---+ +-------+ +------+---+---+ | Given | 05/09/19 | 3 mL | | | | | 19 9:01 | | | | | | PM PDT | | | | +-------+ +------+---+---+ + +---+ | | | + +---+ | ipratropium-albuterol (DUO-NEB) | | | nebulizer solution 3 mL 3 mL, | | | inhalation, EVERY 6 HOURS | | | NEEDED, Starting Tu05/09/18 at | | | 0830, Until Tue05/10/18 at 1643, | | | sob | | + +---+ | | | + +---+ + + + +--------+-------+---+ | lactated ringers IV 500 mL, | Rate/Dos | 05/10/19 | 500 mL | 250 | | | intravenous, ONCE, 1 dose, Mon | e Verify | 19 12:00 | | mL/hr | | | 05/08/18 at 2300 | | AM PDT | | | | + + + +--------+-------+---+ +---------+ +--------+-------+---+ | New Bag | 05/09/19 | 500 mL | 250 | | | | 19 11:13 | | mL/hr | | | | PM PDT | | | | +---------+ +--------+-------+---+ +---+---+ | | | +---+---+ + [...] | ondansetron (ZOFRAN) injection | Given | 05/09/19 | 4 mg | | | | 4 mg 4 mg, intravenous, | | 19 12:37 | | | | | POSTPROCEDURE PRN, 1 dose, | | PM PDT | | | | | Starting Tue05/08/18 at 1138, | | | | | | | Until Tue05/08/18 at 1237, | | | | | | | nausea/vomiting, 1st line | | | | | | + +-------+ +------+---+---+ + +---+ | | | + +---+ | ondansetron (ZOFRAN) injection | | | 4 mg 4 mg, intravenous, EVERY 8 | | | HOURS NEEDED, Starting Mon | | | 05/08/18 at 2223, Until Tue | | | 05/10/18 at 1643, nausea/vomiting, | | | first line | | + +---+ | | | + +---+ | oxyCODONE (immediate release) | | | (ROXICODONE) tablet 5-15 mg 5-15 | | | mg, oral, EVERY 3 HOURS | | | NEEDED, Starting 05/08/18 at | | | 1311, Until Tue05/10/18 at 1643, | | | moderate pain | | + +---+ | | | + +---+ | oxyCODONE (immediate release) | | | (ROXICODONE) tablet 5-15 mg 5-15 | | | mg, feeding tube, EVERY 3 HOURS | | | NEEDED, Starting 05/08/18 | | | at 1311, Until Tue05/10/18 at | | | 1643, moderate pain, when unable | | | to take oral | | + +---+ | | | + +---+ + +-------+ + +---+---+ | senna-docusate (SENOKOT S) | Given | 05/10/19 | 1 tablet | | | | 8.6-50 mg 1 tablet 1 tablet, | | 19 7:56 | | | | | oral, TWICE DAILY, First dose on | | AM PDT | | | | | 05/08/18 at 1315, Until | | | | | | | Discontinued | | | | | | + +-------+ + +---+---+ +-------+ + +---+---+ | Given | 05/09/19 | 1 tablet | | | | | 19 7:52 | | | | | | PM PDT | | | | +-------+ + +---+---+ + +---+ | | | + +---+ | senna-docusate (SENOKOT S) | | | 8.6-50 mg 1 tablet 1 tablet, | | | oral, TWICE DAILY NEEDED, | | | Starting 05/09/18 at 1430, | | | Until Tue05/10/18 at 1643, | | | constipation | | + +---+ | | | + +---+ + +---------+ + + +---+ | sodium chloride 0.9 % (NS) IV | New Bag | 05/09/19 | 10 mL/hr | 10 mL/hr | | | infusion 10 mL/hr, intravenous, | | 19 7:45 | | | | | PROCEDURE CONTINUOUS, Starting | | AM PDT | | | | | 05/08/18 at 0715, Until Mon | | | | | | | 05/08/18 at 1254 | | | | | | + +---------+ + + +---+ +---+---+ | | | +---+---+ + +-------+ +-------+---+---+ | spironolactone (ALDACTONE) | Given | 05/11/19 | 25 mg | | | | tablet 25 mg 25 mg, oral, DAILY, | | 19 9:02 | | | | | First dose on 05/08/18 at | | AM PDT | | [...] + +---------+ +--------+---+---+ | vancomycin (VANCOCIN) IV 750 mg | New Bag | 05/10/19 | 750 mg | | | | 750 mg, intravenous, EVERY 12 | | 19 9:00 | | | | | HOURS, 2 doses, First dose on Mon | | AM PDT | | | | | 05/08/18 at 2100, Last dose on | | | | | | | 05/09/18 at 0900 | | | | | | + +---------+ +--------+---+---+ +---------+ +--------+-------+---+ | New Bag | 05/09/19 | 750 mg | 158 | | | | 19 9:46 | | mL/hr | | | | PM PDT | | | | +---------+ +--------+-------+---+ +---+---+ | | | +---+---+ + [...]
--- OUTSIDE RECORDS SUMMARY | ~2019-10-22 | XMS | Encounter Summary ---
Demographics + + + | Address | [address] | | | [place] [address] | + + + | Home Phone | | + + + | Preferred Language | Unknown | + + + | Marital Status | | + + + | Hinduism Affiliation | MET | + + + [...] Team Providers + +------+ + | Care Lab Support Technician Name | Role | Phone | + +------+ + | Mary Vazquez PA-C | PCP | | + +------+ + Encounter Details +--------+ + + + + | Date | Type | Department | Care Team | Description | +--------+ + + + + | 01/17/ | Procedure | Diagnostic Imaging | | | | 2017 | Pass | Services at [facility] | | | | | | [address] | | | | | | Nora Funes [facility] | | | | | | [facility], [address] [place] [address] | | | | | | [place], [place] | | | | | | [address] | | | | | | [phone] | | | +--------+ + + + [...]
--- OUTSIDE RECORDS SUMMARY | ~2019-10-22 | XMS | Encounter Summary ---
Demographics + + + | Address | [address] | | | [place] [address] | + + + | Home Phone [...] Team Providers + +------+ + | Care Sand Operator Name | Role | Phone | + +------+ + | Remington Camacho MD | PCP | | + +------+ + Encounter Details +--------+ + + + + | Date | Type | Department | Care Team | Description | +--------+ + + + + | 01/10/ | Telephone | Neurosurgery at | Nettie Jaramillo | | | 2014 | | [address] | ANSON Smart [address] [facility] | | | | | [facility] for | [facility] | | | | | [facility], | [place], [place] | | | | | [facility] | [address] | | | | | floor [place], [place] | [phone] | | | | | [address] | | | | | | [phone] | | | +--------+ + + + [...] this encounter Miscellaneous Notes Telephone Encounter - Park Ball - 03/18/2015 2:05 PM PSTPatient contacted for linda carballo. Per patient, she will call in May or June and begin scheduling then.Elec tronically signed by Park Ball at 03/18/2015 2:06 PM PSTTelephone Encounter - Torey Maher PA - 03/12/2015 9:51 AM PSTAccording to cardiology notes from Dr. Abrahan Isbell y, 03/06/2015, patient had a recent MT involving left anterior descending coronary artery, s/ p stent placement in mid left anterior descending artery on 12/27/14. They recommend postponi ng an elective surgery for 6 months from her MT on 12/27 (June 2015). She was restarted on her plavix for a full 6 months of therapy, prior to surgery. She was given [address] af ter 12/27/2014. Dr. Prado has put her back on the plavix for another 5 months. Will need her to come back in June for a pre-op and PMC appt. She will need to be off of mony vix for at least 2 weeks prior to surgery. Spoke with patient. She states that Dr. Prado wanted her to wait until at least June to have the surgery. Told her that we should see her back in June sometime and plan on surgery early July. She says that works for her. She has agreed to come back for a pre-op appt in June wit h Dr. Huber and a PMC appointment, same day. Will have our bulb inspector coordinate this.Electro nically signed by ANSON Vasquez at 03/12/2015 10:04 AM PSTTelephone Encounter - Dante Jolly CMA - 03/12/2015 8:39 AM PSTProgress notes received, placed in the Cecile folder for Review. elephone Encounter - Renetta Maher PA - 03/11/2015 3:02 PM PSTWill obtain cards notes from 03/06/15. Electr onically signed by ANSON Vasquez at 03/11/2015 3:03 PM PSTTelephone Encounter - Dante Spain CMA - 03/05/2015 9:11 AM PSTSpoke with felipa with Dr. Golden office, Patient di d not attend apt on 03/03/15 and will be at clinic for apt on 03/06/15. Felipa stated as soon as the Provider clears her for Procedure she will fax ov notes and letter to clinic. elephone Encounter - Suzy Pettit MA - 02/25/2015 10:00 AM PSTI called [facility] regarding note s from this patients visit on 02/17/15. I spoke with Tawny, she stated that this appt was canceled by patient due to unsafe snowy and icey roads, a f/u has been scheduled for 03/03/15 . elephone Encounter - Renetta Gomez i, PA - 02/24/2015 3:48 PM PSTCalled cardiology office and asked them to fax t he notes from 02/17. elephone Encounter - Nettie Jaramillo PA - 02/19/2015 9:04 PM PSTCan we follow up on mos t recent cardiology visit from 02/17? If patient has not received clearance from cardiologi , please request that the patient get in touch with us when she is cleared to undergo proc edure (as a reminder, this will NOT be done with general anesthesia, simply local). Electron ically signed by ANSON Martinez at 02/19/2015 9:05 PM PSTTelephone Encounter - Park Harris - 01/29/2015 11:13 AM PSTRecords request sent via fax [phone].Electronical ly signed by Park Ball at 01/29/2015 11:14 AM PSTTelephone Encounter - Miko Marquez CMA - 01/28/2015 4:04 [address]emely Jay in Dr. Golden office, they can not clear pat ient until f/u on apt 02/17. Misty recommended that Dr. Huber call and do Peer to peer w ith Dr. Rockwell's office he may clear prior to apt. elephone Encounter - Nettie Jaramillo PA - 01/28/2015 8: 13 AM PSTPlease f/u with cardiology clinic regarding clearance for simple outpatient procedu re for hardware removal under local anesthesia (NO GENERAL ANESTHESIA will be used).Electron ically signed by ANSON Martinez at 01/28/2015 8:14 AM PSTTelephone Encounter - Nettie Elaine PA - 01/14/2015 3:03 PM PSTOK, we will await clearance from Dr Bell diamond to scheduling this procedure. Of note, this procedure does not require general anesthesia and we should be sure to clarify this when contacting Dr Luu office again. Will relay t o Dr Lane. elep veronica Encounter - Kati Garza MA - 01/14/2015 2:49 PM PSTReceived call from Meme, she states that per Dr. Rubio, Cielo should have no surgery or general anesthesia until her f ollow up with him on 01/27. elephone Encounter - Kati Garza MA - 01/14/2015 2:28 PM PSTLVM for Meme to call back. Electronically sig gem by Kati Garza MA at 01/14/2015 2:29 PM PSTTelephone Encounter - Kati Garza M A - 01/13/2015 11:09 AM PSTCalled and spoke with Meme in Dr. Luu office. They are stil l waiting for a response. Provided clinic number to call back when they have an answer for u s. elephone Encounter - Nettie Jaramillo PA - 01/10/2015 2:[address] to discuss clearance fo r procedure by her blue leather sorter as the patient recently suffered from an NSTEMI and underwen t cardiac catheterization. Planned neurosurgery procedure is for explant of hardware, which can be performed with local anesthesia. I have spoken with Dr Chana Luu' RN, Nataliya. Nataliya will speak with either Dr Bell diamond another saturation equipment operator and call us back to confirm it is ok to proceed with t he procedure. She understands our procedure is not urgent. Cardiology office: [phone] documented in this encounter Plan of Treatment Not on filedocumented as of this encounter Visit Diagnoses Not on filedocumented in this encounter"
--- OUTSIDE RECORDS SUMMARY | ~2019-10-22 | XMS | Encounter Summary ---
Demographics + + + | Address | [address] | | | [place] [address] | + + + | Home Phone | | + + + | Preferred Language | Unknown | + + + | Marital Status | | + + + | Cheondoism Affiliation | MET | + + + | Race | White | + + + | Ethnic Group | Not or | + + + Author + + + | Author | [facility] | + + + | Organization | [facility] | + + + | [...] Team Providers + +------+ + | Care Safety Officer Name | Role | Phone | [...] | | | | [facility] | [place], [place] | | | | | [place], [facility] floor | [address] | | | | | [place], [place] | [phone] | | | | | [address] | | | | | | [phone] | | | +--------+ + + + [...]
--- OUTSIDE RECORDS SUMMARY | ~2019-10-22 | XMS | Encounter Summary ---
Demographics + + + | Address | [address] | | | [place] [address] | + + + | Home Phone [...] + + | Author | [facility] | + + + | Organization | [facility] | + + + | [...] Providers + +------+ + | Care Corporate Pilot Name | Role | Phone | + [...] | +--------+ + + + + | 09/13/ | Hospital | [facility] [address] | Meeta Donnelly, | | | 2019 - | Encounter | [place] | [address] | | | | | /[id number] [facility] | [address] | | | 09/22/ | | [facility], | [place], [place] | | | 2019 | | [place] [address] | [address] | | | | | [phone] | [phone] | | | | | | | | | | | | Angel See, PA | | | | | | [address] [facility] | | | | | | [address] [place], | | | | | | [place] [address] | | | | | | [phone] | | | | | | | | | | | | Remington Dexter, PHARMACY OPERATIONS SPECIALIST | | | | | | [address] [facility] | | | | | | [address] | | | | | | [place], [place] | | | | | | [address] | | | | | | [phone] | | | | | | | | | | | | Carlos Eduardo Maher, [address] | | | | | | [facility] | | | | | | Rd [place], [place] | | | | | | [address] | | | | | | [phone] | | | | | | | | | | | | Ata White MD [address] | | | | | | [facility] | | | | | | Rd [place], [place] | | | | | | [address] | | | | | | [phone] | | | | | | | [...] + + + | Blood Pressure | 115/68 | 09/22/2018 8:23 AM | | | | | PDT | | + + + + + | Pulse | 84 | 09/22/2018 8:23 AM | | | | | PDT | | + + + + + | Temperature | 36.4 C (97.5 F) | 09/22/2018 8:23 AM | | | | | PDT | | + + + + + | Respiratory Rate | 16 | 09/22/2018 8:23 AM | | | | | PDT | | + + + + + | Oxygen Saturation | 97% | 09/22/2018 8:23 AM | | | | | PDT | | + + + + + | Inhaled Oxygen | - | - | | | Concentration | | | | + + + + + | Weight | 49 kg (108 lb) | 09/13/2018 8:37 PM | | | | | PDT | | + + + + + | Height | 149.9 cm (4' 11") | 09/13/2018 8:37 PM | | | | | PDT | | + + + + + | Body Mass Index | 21.81 | 09/13/2018 8:37 PM | | | | | PDT [...] documented as of this encounter Discharge Summaries Angie French PA-C - 09/22/2018 10:22 AM PDT DOS: 09/22/2018 10:22 AM INPATIENT PHYSICIAN DISCHARGE SUMMARY Author: ANGIE FRENCH PA-C Attending Physician: Ata White MD PCP: Mary Vazquez PA-C Admission Date: 09/13/2018 Discharge Date: 22 Sep 2018 Diagnoses Principal Final Diagnosis: Nonviable lastissimus dorsi free tissue flap Procedures Dr. Cha (NSG) and Dr. White (ENT) 09/19/2018 Explant of cranial mesh, debridement of wound by NSG and scalp rotational flap by ENT Brief Hospital Course: Preadmitted to [facility] ED on 09/13 for scalp wound deshicence. The dannielle nt was taken to the OR on 09/19/2018 for the above procedures. During the procedure, no compl ications were noted. At the end of the procedure, appropriate drain were placed, the patient was extubated, and transferred to the post-anesthesia care unit. Once recovered, the suki linares was transferred to the post-surgical cooper where [facility] the [facility] The patient had no post-operative events The patient was admitted to floor for observation and post-operative management. On the ilya or the patient was stable and without complications. The patient had stable respiratory stat us on room air. The surgical incisions remained clean, dry, and intact. By date of discharge patient was tolerating oral diet without abdominal pain, nausea or vomiting. Based on the w ound cx switched from Van and Zosyn IV to Augmentin for total duration off 14 days. The hailey ent's pain was controlled with oral medications. LAZARA drain removed without complications. Anson basilio discharged home and she was informed on appropriate follow-up care. Medications: Medication List START taking these medications amoxicillin-clavulanate 875-125 mg Tab Commonly known as: AUGMENTIN Take 1 tablet by mouth two times daily for 11 days. Indications: bacterial infection white petrolatum Oipk Commonly known as: VASELINE Apply 1 packet to affected area three times daily. CONTINUE taking these medications acetaminophen 325 mg [...] efer, though healthy food choices are recommended. Other Discharge Orders and Instructions OTOLARYNGOLOGY- HEAD [...] on to al low time for processing. Narcotics: If you need a refill on narcotic pain medications between 8am-3pm. If you think you will need a refill for the weekend, you must call by 3pm on Narcotic medications (Dilaudid, Oxycodone, Morphine, etc.) cannot be called or faxed in to any pharmacy; They must be either picked up in person or mailed to your home. NO REFILL REQU ESTS WILL BE TAKEN ON FRIDAYS OR S. Prescriptions sent by mail will take 3 business d ays. Prescriptions to be picked up in person will be ready by the next day. It is your responsibility to keep track of how much pain medication you have left. You may receive a phone call from the clinic inquiring about your pain; this is to find out if you are having expected post-surgical pain, or if you are having problems and need furth er evaluation. WOUND CARE: Keep the wound clean and dry. You may shower with soap and water. Pat your incision dry. Do not scrub your incision. Do not use hot tubs or take a bath until cleared by a surgeon. Apply a thin layer of petroleum jelly (Vaseline) to the incision site at least 2 times a da y till your follow up with us in clinic SYMPTOMS OF A SURGICAL SITE INFECTION: 1) Spreading redness and swelling from the incision. 2) Worsening or uncontrolled pain at the incision 3) Foul smelling or thick/creamy discharge from the incision 4) Chills or fever of a 101.4 degrees or higher FOLLOW-UP: Continue to take the antibiotics as prescribed 10/04/2018 10:30 AM MD NITESH Hansen CH Otolaryngolo HOW TO REACH US: Tuesday- Tuesday from 8:00am to 4:30pm, call the Otolaryngology clinic at [phone]. After hours, weekends, and holidays, call the [facility] diesel locomotive crane operator at [phone] and as k to have the ENT doctor on-call paged Contact information for after-discharge senior care [facility] . Service: Home Health Services Contact information [address], [address] [phone] Future Appointments Date Time Provider Department Center 10/04/2018 10:30 AM MD NITESH Hansen Otolaryngolo Pertinent imaging:In EPIC Pertinent labs: CBC with diff last 72 hours (or 3 results) Recent Labs 09/20/18 0647 09/21/18 0531 09/22/18 0708 WBC 14.08* 11.01* 8.42 HB 9.1* 8.0* 8.8* HCT 29.3* 25.5* 28.2* PLT 251 245 281 Chemistries: Last 72 Hours (or 3 results): Recent Labs 09/20/18 0647 09/21/18 0531 09/22/18 0708 NA 141 144 140 K 4.8 3.9 4.4 CL 110* 113* 110* BICARB 26 24 25 BUN 16 13 14 CR 0.76 0.76 0.78 GLU 128* 97 94 CA 8.3* 7.9* 8.3* MG 2.0 2.1 -- PO4 3.9 2.7 -- Pertinent microbiology/pathology: CULTURE, BLOOD BACTI & YEAST [facility] [[id number]] [facility] CORE LAB Collected: 09/20/18 0647 Lab Status: Preliminary result Specimen: Blood Updated: 09/22/18 0055 CULTURE RESULT No growth to date. [facility] CULTURE, AFB (ALL SPEC TYPES EXCEPT BLOOD) [[id number]] LAB Collected: 09/19/181427 Lab Status: Preliminary result Specimen: Tissue from Head Updated: 09/20/18 0441 Narrative: AFB Smear: AFB not detected CULTURE, TISSUE [[id number]] (Abnormal) LAB Collected: 09/19/181427 Lab Status: Preliminary result Specimen: Tissue from Head Updated: 09/22/18 07 CULTURE RESULT Escherichia coliAbnormal LAB Narrative: Culture Report: Rare Escherichia coli . Gram Stain: No squamous epithelial cells Rare polymorphonuclear cells No organisms seen Susceptibility Escherichia coli SUSCEPTIBILITY-GRANT (Preliminary) Ampicillin S Cefazolin S Ciprofloxacin S Gentamicin S Piperacillin/Tazobactam S Tobramycin S Trimethoprim/Sulfa S Linear View CULTURE, FUNGAL EXCEPT BLOOD, SKIN, HAIR, NAIL [[id number]] LAB Collected: 09/19/18 142 Lab Status: In process Specimen: Tissue from Head Updated: 09/19/18 1453 CULTURE, AFB (ALL SPEC TYPES EXCEPT BLOOD) [[id number]] LAB Collected: 09/19/18 1412 Lab Status: Preliminary result Specimen: Swab from Head Updated: 09/20/18 0441 Narrative: AFB Smear: AFB not detected CULTURE, WOUND DEEP W/ ANAEROBE [[id number]] (Abnormal) LAB Collected: 09/19/18 1412 Lab Status: Preliminary result Specimen: Swab from Head Updated: 09/21/18 0726 CULTURE RESULT Escherichia coliAbnormal LAB Narrative: Culture Report: 1+ Escherichia coli Gram Stain: No squamous epithelial cells No polymorphonuclear cells No organisms seen Susceptibility Escherichia coli SUSCEPTIBILITY-GRANT (Preliminary) Ampicillin S Cefazolin S Ciprofloxacin S Gentamicin S Piperacillin/Tazobactam S Tobramycin S Trimethoprim/Sulfa S Linear View CULTURE, FUNGAL EXCEPT BLOOD, SKIN, HAIR, NAIL [[id number]] LAB Collected: 09/19/18 1412 Lab Status: In process Specimen: Swab from Head Updated: 09/19/18 1454 CULTURE, BLOOD BACTI & YEAST [facility] [[id number]] [facility] LAB Collected: 09/19/18 0604 Lab Status: Preliminary result Specimen: Blood from Antecubital - right Updated: 09/21/18 0 055 CULTURE RESULT No growth to date. [facility] CULTURE, BLOOD BACTI & YEAST [facility] [[id number]] [facility] LAB Collected: 09/18/18 0535 Lab Status: Preliminary result Specimen: Blood from Hand - left Updated: 09/20/18 0055 CULTURE RESULT No growth to date. [facility] CULTURE, BLOOD BACTI & YEAST [facility] [[id number]] [facility] LAB Collected: 09/17/18 0919 Lab Status: Preliminary result Specimen: Blood from Hand - left Updated: 09/19/18 0055 CULTURE RESULT No growth to date. [facility] CULTURE, BLOOD BACTI & YEAST [facility] [[id number]] (Abnormal) [facility] Collected: 09/14/18 0025 Lab Status: Edited Result - FINAL Specimen: Blood from Peripheral Updated: 09/15/18 0502 CULTURE RESULT [facility] Staphylococcus epidermidisPanic Ref Range: GRAM STAIN Gram Positive BacilliPanic [facility] C[facility] Gram positive cocci in clustersPanic Ref Range: Comment: This is an appended report. These results have been appended to a previously yovanny l verified report. Narrative: Growth in Aerobic Bottle - GPB only. Growth in Anaerobic Bottle - GPC and [facility]. Organism Identified by Molecular ID, to be confirmed by culture. BLOOD CULTURE WORKUP [[id number]] (Abnormal) LAB Collected: 09/14/18 0025 Lab Status: Final result Specimen: Blood from Peripheral Updated: 09/17/18 1105 CULTURE RESULT [facility] Bacillus species, not B anthracisAbnormal Ref Range: [facility] Coagulase negative staphylococcus speciesAbnormal Ref Range: Narrative: Culture Report: Bacillus species, not B. anthracis Coagulase negative Staphylococcus species Growth in Aerobic bottle Growth in Anaerobic bottle Vitals on discharge: Ht 1.499 m (4' 11"), Wt 49 kg (108 lb), BP 115/68, Pulse 84, Temperatu re 36.4 C (97.5 F), Temperature source Axillary, RR 16, SpO2 97%, BMI 21.81 kg/(m^2). F acility age limit for growth percentiles is 18 years. Physical Exam on discharge: General: Alert, comfortable, NAD HEENT: Right anterior scalp incision c/d/i. Bolster present over the scalp Respiratory: Breathing unlabored on RA. Discharging Physician: ANGIE FRENCH PA-C Attending Physician: Ata White MD I spent 74 minutes independently in the direct care and management of this patient. Greate r than 50% of the time spent included physical education, teaching wound management and coor dinating follow-up appointment. ANGIE FRENCH PA-C Department of Otolaryngology/Head and Neck Surgery Mail Code PV01 [address] [place], [place] [phone] Pager [phone] Consult/Night/Weekend Pager: [phone] documented in this encounter Discharge Instructions Instructions Rula Alejandro RN - 09/22/2018 Discharge Nurse: RULA ALEJANDRO RN Date: 09/22/2018 Discharge Time: 8:01 AM documented in this encounter Medications at Time [...] + +---------+ + + | | Take 1 tablet by | 22 | 0 | 09/23/19 | | | amoxicillin-clavulan | mouth two times | tablet | | 19 | 9 | | ate 875-125 mg oral | daily for 11 days. | | | | | | tabletIndications: | Indications: | | | | | | ENT infection | bacterial infection | | | | | + + + +---------+ + + documented as of this encounter Progress Notes Saskia Conway MD - 09/22/2018 11:21 AM PDT NEUROSURGERY PROGRESS NOTE Attending Physician: Ata White MD (ENT); Paramjit Huber MD (NSGY) INTERVAL EVENTS: NAEON Discharging today OBJECTIVE: Last 24 hour min/max Temp: 36.4 C (97.5 F) Temp Min: 36.4 C (97.5 F) Max: 36.9 C (98.4 F) Pulse: 84 Pulse Min: 84 Max: 93 Resp: 16 Resp Min: 16 Max: 16 BP: 115/68 BP Min: 97/66 Max: 119/54 SpO2: 97 % SpO2 Min: 94 % Max: 97 % Body mass index is 21.81 kg/m. I/O/Drains Current Shift I/O/Drains Last 3 Completed Shifts No intake/output data recorded. 09/21 0701 - 09/22 0700 In: 1210 [P.O.:1210] Out: 10 [Drains:10] No data recorded No data recorded Labs: Complete Blood Count/Coags Recent Labs 09/20/18 0647 09/21/18 0531 09/22/18 0708 WBC 14.08* 11.01* 8.42 HB 9.1* 8.0* 8.8* HCT 29.3* 25.5* 28.2* PLT 251 245 281 Invalid input(s): INR CSF Results No results for input(s): WBCCSF, RBCCSF, GLUCOSECSF, PROTEINCSF in the last 8640 hours. Chemistry Recent Labs 09/18/18 0918 09/20/18 0647 09/21/18 0531 09/22/18 0708 NA 142 < > 141 144 140 K 4.4 < > 4.8 3.9 4.4 CL 112* < > 110* 113* 110* BICARB 22 < > 26 24 25 BUN 12 < > 16 13 14 CR 0.86 < > 0.76 0.76 0.78 GLU 90 < > 128* 97 94 CA 8.8 < > 8.3* 7.9* 8.3* MG 2.2 -- 2.0 2.1 -- PO4 4.0 -- 3.9 2.7 -- < > = values in this interval not displayed. Culture Results CULTURE RESULT (no units) Date Value 05/13/2008 CSF Culture Source...............: Cerebrospinal Fluid RLB Gram Stain...........: Gram smear performed at [facility]. Culture: Final Report: No growth after 3 days. Final Report CULTURE RESULT (no units) Date Value 09/18/2018 No growth to date. Lab Results Component Value Date APTT 69.2 (H) 08/08/2018 FIBRINOGEN 355 08/04/2018 Lab Results Component Value Date RBCCSF 43 05/13/2008 WBCCSF 3 05/13/2008 PROTEINCSF Combined. 05/13/2008 PROTEINCSF 100 (H) 05/13/2008 GLUCOSECSF Combined. 05/13/2008 GLUCOSECSF 78 (H) 05/13/2008 CSFAPP Combined. 05/13/2008 CSFAPP Combined. 05/13/2008 CSFAPP Clear 05/13/2008 NEUROLOGICAL EXAM: Awake, alert, oriented to self, time, place Following commands briskly Speech fluent EOMI Gaze conjugate Facial sensation intact and symmetric Face asymmetric - diminished frontalis activation Strength grossly intact throughout Sensation grossly intact to light touch in all extremities Incision clean/dry/intact without erythema, swelling, or drainage. Xeroform bolster in plac e over posterior aspect incision site. ASSESSMENT/PLAN: Gloria Adhikari is a 68 y.o. 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 She is most recently s/p replacement of right mesh cranioplas ty, wound debridement and reconstruction with a latissimus dorsi free tissue flap (08/03/18) now s/p scalp debridement, washout, explant of cranioplasty/flap. Intraop cultures of epidu ral sample growing E Coli, blood cultures on admission remarkable for coag negative staph + staph epidermidis (09/14) are now NGTD x3 days. - okay for discharge from neurosurgical perspective. Please contact the neurosurgery cooper on-call pager [phone] with questions. Saskia Conway MD Neurosurgery PGY1 Pager: [phone] [facility] Center[facility]ask[facility] ojeda MD - 0 09/21/2018 11:32 AM PDT NEUROSURGERY PROGRESS NOTE Attending Physician: Ata White MD (ENT); Paramjit Huber MD (NSGY) INTERVAL EVENTS: Planning to be discharged tomorrow and stay with her brother in [place] OBJECTIVE: Last 24 hour min/max Temp: 36.7 C (98.1 F) Temp Min: 36.6 C (97.9 F) Max: 37 C (98.6 F) Pulse: 83 Pulse Min: 83 Max: 102 Resp: 18 Resp Min: 16 Max: 20 BP: 102/52 BP Min: 102/52 Max: 121/44 SpO2: 95 % SpO2 Min: 93 % Max: 100 % Body mass index is 21.81 kg/m. I/O/Drains Current Shift I/O/Drains Last 3 Completed Shifts 09/21 700 - 09/21 1500 In: 360 [P.O.:360] Out: - 09/20 700 - 09/21 07 In: 700 [P.O.:650] Out: 27 [Drains:27] No data recorded No data recorded Labs: Complete Blood Count/Coags Recent Labs 09/18/18 1436 09/20/18 0647 09/21/18 0531 WBC 8.47 14.08* 11.01* HB 11.5* 9.1* 8.0* HCT 36.8 29.3* 25.5* PLT 307 251 245 Invalid input(s): INR CSF Results No results for input(s): WBCCSF, RBCCSF, GLUCOSECSF, PROTEINCSF in the last 8640 hours. Chemistry Recent Labs 09/18/18 0918 09/19/18 0604 09/19/18 1556 09/20/18 0647 09/21/18 0531 NA 142 141 -- -- 141 144 K 4.4 4.3 -- -- 4.8 3.9 CL 112* 110* -- -- 110* 113* BICARB 22 24 -- -- 26 24 BUN 12 13 -- -- 16 13 CR 0.86 0.86 -- -- 0.76 0.76 GLU 90 94 < > 124* 128* 97 CA 8.8 8.8 -- -- 8.3* 7.9* MG 2.2 -- -- -- 2.0 2.1 PO4 4.0 -- -- -- 3.9 2.7 < > = values in this interval not displayed. Culture Results CULTURE RESULT (no units) Date Value 05/13/2008 CSF Culture Source...............: Cerebrospinal Fluid RLB Gram Stain...........: Gram smear performed at [facility]. Culture: Final Report: No growth after 3 days. Final Report CULTURE RESULT (no units) Date Value 09/18/2018 No growth to date. Lab Results Component Value Date APTT 69.2 (H) 08/08/2018 FIBRINOGEN 355 08/04/2018 Lab Results Component Value Date RBCCSF 43 05/13/2008 WBCCSF 3 05/13/2008 PROTEINCSF Combined. 05/13/2008 PROTEINCSF 100 (H) 05/13/2008 GLUCOSECSF Combined. 05/13/2008 GLUCOSECSF 78 (H) 05/13/2008 CSFAPP Combined. 05/13/2008 CSFAPP Combined. 05/13/2008 CSFAPP Clear 05/13/2008 NEUROLOGICAL EXAM: Awake, alert, oriented to self, time, place Following commands briskly Speech fluent EOMI Gaze conjugate Facial sensation diminished L V1 Face asymmetric - diminished frontalis activation Strength grossly intact throughout Sensation grossly intact to light touch in all extremities Incision clean/dry/intact without erythema, swelling, or drainage. Xeroform bolster in plac e over posterior aspect incision site. LAZARA is serosanguinous <5cc in the bulb. ASSESSMENT/PLAN: Gloria Adhikari is a 68 y.o. 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 She is most recently s/p replacement of right mesh cranioplas ty, wound debridement and reconstruction with a latissimus dorsi free tissue flap (08/03/18) [facility] concern for underlying infection/involveme nt of mesh cranioplasty.Blood culture remarkable for coag negative staph + staph epidermid is (obtained 09/14). Now POD2 from scalp debridement, washout, explant of cranioplasty/flap. Intraop cultures of epidural sample growing E Coli. - Maintain adequate analgesia - Encourage mobilization, SCDs while in bed - Abx per ENT - LAZARA drain management per ENT, recommend to leave in until tomorrow prior to discharge Please contact the neurosurgery cooper on-call pager [phone] with questions. Saskia Conway MD Neurosurgery PGY1 Pager: [phone] iAngie andersen PA-C - 09/21/2018 8:23 AM PDT DOS: 09/21/2018 Head and Neck Surgery Inpatient Daily Progress Note: Primary Care Provider: Mary Vazquez PA-C Admission Date: 09/13/2018 GLORIA ADHIKARI, [id number] Hospital Day #8 SUBJECTIVE INTERVAL EVENTS: - No acute events -Wound cx growing E.coli and Staphylococcus epidermidis. Pt on Augmentin -AF, VSS. WBC down to 11 this am OBJECTIVE Last 24 hour min/max Temp: 36.7 C (98.1 F) Temp Min: 36.6 C (97.9 F) Max: 37 C (98.6 F) Pulse: 83 Pulse Min: 83 Max: 102 Resp: 18 Resp Min: 16 Max: 20 BP: 102/52 BP Min: 102/52 Max: 121/44 SpO2: 95 % SpO2 Min: 93 % Max: 100 % Body mass index is 21.81 kg/m. Intake/Output Summary (Last 24 hours) at 09/21/2018 0823 Last data filed at 09/21/2018 0600 Gross per 24 hour Intake 650 ml Output 27 ml Net 623 ml PHYSICAL EXAM: General: Alert, comfortable, NAD HEENT: Right anterior scalp incision c/d/i. Bolster present over the scalp Respiratory: Breathing unlabored on RA. LABS: Recent Labs 09/16/18 0924 09/17/18 0810 09/18/18 0918 09/19/18 0604 09/19/18 1556 09/20/18 0647 09/21/18 0531 NA 141 141 142 141 -- -- 141 144 K 4.1 4.1 4.4 4.3 -- -- 4.8 3.9 CL 110* 112* 112* 110* -- -- 110* 113* BICARB 26 25 22 24 -- -- 26 24 BUN 15 16 12 13 -- -- 16 13 CR 0.78 0.78 0.86 0.86 -- -- 0.76 0.76 GLU 88 99 90 94 < > 124* 128* 97 CA 8.4* 8.5* 8.8 8.8 -- -- 8.3* 7.9* ALB 3.2* 2.9* 3.1* -- -- -- -- -- < > = values in this interval not displayed. 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 Currently admitted after presenting with nonviable flap and infection an d TIA with left sided facial droop. Necrotic flap debrided at bedside on 09/14/18. Plan for I V antibiotics to resolve active infection and scalp rotational flap early week of 09/18. Unde rwent on 09/19 explant of cranial mesh, debridement of wound by NSG and scalp rotational flap by ENT #s/p latissimus free flap c/b flap and infection - Wound and blood cultures from 09/14 growing staph epidermidis and E.coli. On Augmentin for 14 days duration -Vaseline to incision site over the scalp TID and maintain the bolster for now. Plan to rem ove bolster and suture to be remove in 10 days in clinic -Will remove the LAZARA drain tomorrow, okay by NSG and Dr. White #FEN/GI - Regular diet #Neuro: TIA - No new neurologic deficits, continue to monitor - NSG following #Resp: COPD - Continue duonebs PRN #Cardiac: HTN, CAD s/p NSTEMI - Continue home metoprolol, statin #Prophylaxis - Continue lovenox, SCDs - Out of bed and ambulate at least TID #Dispo: Pending clinical course. Anticipate dc tomorrow with oral abx. Code Status: FULL ANGIE FRENCH PA-C Department of Otolaryngology/Head and Neck Surgery Mail Code PV01 [address] [place] [address] Pager [phone] Consult/Night/Weekend Pager: [phone] Saskia Tinoco MD - 09/20/2018 7:54 AM PDT NEUROSURGERY PROGRESS NOTE Attending Physician: Ata White MD (ENT); Paramjit Huber MD (NSGY) INTERVAL EVENTS: Patient went to OR yesterday for explant of cranial mesh, debridement and flap removal. Doing well post-op. She is glad that it is over. OBJECTIVE: Last 24 hour min/max Temp: 36.6 C (97.9 F) Temp Min: 36.2 C (97.2 F) Max: 36.9 C (98.4 F) Pulse: 80 Pulse Min: 74 Max: 91 Resp: 18 Resp Min: 14 Max: 22 BP: 98/54 BP Min: 94/61 Max: 126/85 SpO2: 93 % SpO2 Min: 90 % Max: 100 % Body mass index is 21.81 kg/m. I/O/Drains Current Shift I/O/Drains Last 3 Completed Shifts No intake/output data recorded. 09/19 07 - 09/20 0700 In: 2030 [I.V.:2029] Out: 695 [Urine:500; Drains:45] No data recorded No data recorded Labs: Complete Blood Count/Coags Recent Labs 09/15/18 0657 09/18/18 1436 09/20/18 0647 WBC 7.62 8.47 14.08* HB 11.5* 11.5* 9.1* HCT 36.6 36.8 29.3* PLT 307 307 251 Invalid input(s): INR CSF Results No results for input(s): WBCCSF, RBCCSF, GLUCOSECSF, PROTEINCSF in the last 8640 hours. Chemistry Recent Labs 09/17/18 0810 09/18/18 0918 09/19/18 0604 09/19/18 1136 09/19/18 1556 09/20/18 0647 NA 141 142 141 -- -- 141 K 4.1 4.4 4.3 -- -- 4.8 CL 112* 112* 110* -- -- 110* BICARB 25 22 24 -- -- 26 BUN 16 12 13 -- -- 16 CR 0.78 0.86 0.86 -- -- 0.76 GLU 99 90 94 94 124* 128* CA 8.5* 8.8 8.8 -- -- 8.3* MG 2.5 2.2 -- -- -- 2.0 PO4 4.1 4.0 -- -- -- 3.9 Culture Results CULTURE RESULT (no units) Date Value 05/13/2008 CSF Culture Source...............: Cerebrospinal Fluid RLB Gram Stain...........: Gram smear performed at [facility]. Culture: Final Report: No growth after 3 days. Final Report CULTURE RESULT (no units) Date Value 09/18/2018 No growth to date. Lab Results Component Value Date APTT 69.2 (H) 08/08/2018 FIBRINOGEN 355 08/04/2018 Lab Results Component Value Date RBCCSF 43 05/13/2008 WBCCSF 3 05/13/2008 PROTEINCSF Combined. 05/13/2008 PROTEINCSF 100 (H) 05/13/2008 GLUCOSECSF Combined. 05/13/2008 GLUCOSECSF 78 (H) 05/13/2008 CSFAPP Combined. 05/13/2008 CSFAPP Combined. 05/13/2008 CSFAPP Clear 05/13/2008 NEUROLOGICAL EXAM: Awake, alert, oriented to self, time, place Following commands briskly Speech fluent EOMI Gaze conjugate Facial sensation diminished L V1 Face asymmetric - diminished frontalis activation Strength grossly intact throughout Sensation grossly intact to light touch in all extremities Incision clean/dry/intact without erythema, swelling, or drainage. Xeroform bolster in plac e over posterior aspect incision site. LAZARA is serosanguinous <5cc in the bulb, 45cc/24h. ASSESSMENT/PLAN: Gloria Adhikari is a 68 y.o. female HD#7 with acomplicated history following ina gical management of ruptured anterior communicating artery aneurysm and hydrocephalus which occurred in 2007, who has required multiple surgical procedures for wound infection, explant and re-implantation of cranioplasty.She underwent synthes cranioplasty (05/08/18) with rot ational flap performed by ENT which has been complicated by wounddehiscence managed by ENT over sewing (05/14-) and explant of cranioplasty and wound closure (07/11), with cultures p ositive for staph epidermidis. She is most recently s/p replacement of right mesh cranioplas ty, wound debridement and reconstruction with a latissimus dorsi free tissue flap (08/03/18) [facility] concern for underlying infection/involveme nt of mesh cranioplasty.Blood culture remarkable for coag negative staph + staph epidermid is (obtained 09/14). Now POD1 from scalp debridement, washout, explant of cranioplasty/flap. - Maintain adequate analgesia - Encourage mobilization, SCDs while in bed - LAZARA drain management per ENT Please contact the neurosurgery cooper on-call pager [phone] with questions. Saskia Conway MD Neurosurgery PGY1 Pager: [phone] Angie Piña PA-C - 09/20/2018 6:58 AM PDT DOS: 09/20/2018 Head and Neck Surgery Inpatient Daily Progress Note: Primary Care Provider: Mary Vazquez PA-C Admission Date: 09/13/2018 GLORIA ADHIKARI, [id number] Hospital Day #7 SUBJECTIVE INTERVAL EVENTS: - No acute events - Was taken to the OR yesterday for removal of cranial mesh, wash out by NSG and scalp rota tion flap by ENT -Joycelyn Zuniga. Continue IV Zosyn for now, will plan to switch to enteral abx -AF, VSS. WBC 14 OBJECTIVE Last 24 hour min/max Temp: 36.6 C (97.9 F) Temp Min: 36.2 C (97.2 F) Max: 36.9 C (98.4 F) Pulse: 80 Pulse Min: 74 Max: 91 Resp: 18 Resp Min: 14 Max: 22 BP: 98/54 BP Min: 94/61 Max: 126/85 SpO2: 93 % SpO2 Min: 90 % Max: 100 % Body mass index is 21.81 kg/m. Intake/Output Summary (Last 24 hours) at 09/20/2018 0658 Last data filed at 09/20/2018 0055 Gross per 24 hour Intake 2030 ml Output 695 ml Net 1335 ml PHYSICAL EXAM: General: Alert, comfortable, NAD HEENT: Right anterior scalp incision c/d/i. Bolster present over the scalp Respiratory: Breathing unlabored on RA. LABS: Recent Labs 09/16/18 0924 09/17/18 0810 09/18/18 0918 09/19/18 0604 09/19/18 1136 09/19/18 1556 NA 141 141 142 141 -- -- K 4.1 4.1 4.4 4.3 -- -- CL 110* 112* 112* 110* -- -- BICARB 26 25 22 24 -- -- BUN 15 16 12 13 -- -- CR 0.78 0.78 0.86 0.86 -- -- GLU 88 99 90 94 94 124* CA 8.4* 8.5* 8.8 8.8 -- -- ALB 3.2* 2.9* 3.1* -- -- -- Recent Labs 09/13/18204209/15/18 0657 09/18/18 1436 WBC 8.76 7.62 8.47 RBC 4.01 3.79* 3.80* HB 12.4 11.5* 11.5* HCT 38.3 36.6 36.8 PLT 348 307 307 CBG's Recent Labs 09/13/18204209/15/18 0657 09/16/18 0924 09/17/18 0810 09/18/18 0918 09/19/18 0604 09/19/18 1136 09/19/18 1556 GLU 97 91 88 99 90 94 94 124* ASSESSMENT/PLAN: Gloria Adhikari is a 68F with history of 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 Currently admitted after presenting with nonviable flap and infection an d TIA with left sided facial droop. Necrotic flap debrided at bedside on 09/14/18. Plan for I V antibiotics to resolve active infection and scalp rotational flap early week of 09/18. Unde rwent on 09/19 explant of cranial mesh, debridement of wound by NSG and scalp rotational flap by ENT #s/p latissimus free flap c/b flap and infection -No PICC - Wound and blood cultures from 09/14 growing staph epidermidis/GPC/GNR. No abx speciation - Dc'd IV vanc and will continue zosyn, lactobacillus. Will switch to Augmentin prior to dc for total additional duration of 14 days -Vaseline to incision site over the scalp TID and maintain the bolster for now. Plan to rem ove bolster and suture to be remove in 10 days in clinic #FEN/GI - Regular diet -Renal fx lab wnl this am, thus dc'd daily renal fx labs #Neuro: TIA - No new neurologic deficits, continue to monitor - NSG following #Resp: COPD - Continue duonebs PRN #Cardiac: HTN, CAD s/p NSTEMI - Continue home metoprolol, statin #Prophylaxis - Continue lovenox, SCDs - Out of bed and ambulate at least TID #Dispo: Pending clinical course. Code Status: FULL ANGIE FRENCH PA-C Department of Otolaryngology/Head and Neck Surgery Mail Code PV01 [address] [place] [address] Pager [phone] Consult/Night/Weekend Pager: [phone] Hernandez Mistry MD - 09/19/2018 5:58 PM PDTNeurosurgery Post-Op Check 09/19/2018 5:58 PM Examined in 10k Procedure performed: wound revision, mesh explant Awake, alert, oriented to person, place, time Appropriately interactive PERRL, EOMI, FS, TML BUE/BLE / No drift SILT Incision c/d/i. LAZARA bloody. Please page [phone] with any questions Hernanedz Wells M.D. Neurosurgery PGY-2 Angie Piña PA-C - 09/19/2018 8:07 AM PDT DOS: 09/19/2018 Head and Neck Surgery Inpatient Daily Progress Note: Primary Care Provider: Mary Vazquez PA-C Admission Date: 09/13/2018 GLORIA ADHIKARI, [id number] Hospital Day #6 SUBJECTIVE INTERVAL EVENTS: - No acute events - To OR today OBJECTIVE Last 24 hour min/max Temp: 36.6 C (97.9 F) Temp Min: 36.6 C (97.9 F) Max: 36.7 C (98.1 F) Pulse: 81 Pulse Min: 77 Max: 98 Resp: 20 Resp Min: 18 Max: 20 BP: 109/82 BP Min: 91/71 Max: 141/98 SpO2: 96 % SpO2 Min: 95 % Max: 97 % Body mass index is 21.81 kg/m. Intake/Output Summary (Last 24 hours) at 09/19/2018 0807 Last data filed at 09/18/2018 2252 Gross per 24 hour Intake 640 ml Output Net 640 ml PHYSICAL EXAM: General: Alert, comfortable, NAD HEENT: Right anterior scalp debrided muscle free flap with xeroform and telfa dressing in p lace, remaining muscle with clean crusting and small amount of fibrinous debris, no obvious purulent drainage or surrounding erythema, no exposed mesh LABS: Recent Labs 09/16/18 0924 09/17/18 0810 09/18/18 0918 09/19/18 0604 NA 141 141 142 141 K 4.1 4.1 4.4 4.3 CL 110* 112* 112* 110* BICARB 26 25 22 24 BUN 15 16 12 13 CR 0.78 0.78 0.86 0.86 GLU 88 99 90 94 CA 8.4* 8.5* 8.8 8.8 ALB 3.2* 2.9* 3.1* -- Recent Labs 09/13/18204209/15/18 0657 09/18/18 1436 WBC 8.76 7.62 8.47 RBC 4.01 3.79* 3.80* HB 12.4 11.5* 11.5* HCT 38.3 36.6 36.8 PLT 348 307 307 CBG's Recent Labs 09/13/18204209/15/18 0657 09/16/18 0924 09/17/18 0810 09/18/18 0918 09/19/18 0604 GLU 97 91 88 99 90 94 ASSESSMENT/PLAN: Gloria Adhikari is a 68F with history of 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 Currently admitted after presenting with nonviable flap and infection an d TIA with left sided facial droop. Necrotic flap debrided at bedside on 09/14/18. Plan for I V antibiotics to resolve active infection and scalp rotational flap early week of 09/18. #s/p latissimus free flap c/b flap and infection - Plan PICC placement 48 hours after negative blood cultures, still pending - Wound and blood cultures from 09/14 growing staph epidermidis/GPC/GNR. No abx speciation - Continue IV vanc and zosyn, lactobacillus - Daily xeroform and telfa dressing changes #FEN/GI - Regular diet -Renal fx lab wnl this am, thus dc'd daily labs #Neuro: TIA - No new neurologic deficits, continue to monitor - NSG following #Resp: COPD - Continue duonebs PRN #Cardiac: HTN, CAD s/p NSTEMI - Continue home metoprolol, statin #Prophylaxis - Continue lovenox, SCDs - Out of bed and ambulate at least TID #Dispo: To OR today with ENT and NSG, NPO MN, MIVF to start MN. On the OR list, and consent ed. Code Status: FULL ANGIE FRENCH PA-C Department of Otolaryngology/Head and Neck Surgery Mail Code PV01 [address] [place], [place] [id number] Pager [phone] Consult/Night/Weekend Pager: [phone] ettie Jaramillo PA - 09/19/2018 7:21 AM PDT INPATIENT PROGRESS NOTE Hospital Day:6 Author; ANSON MULLINS Attending Physician: Ata White MD Interval Hx: -pt sleeping when clinician entered room -states she hit her head on the side rail last night Physical Exam: Last Vitals: BP 109/82 (BP Location: Right upper arm, Patient Position: Sitting) | Pulse 8 1 | Temp 36.6 C (97.9 F) (Oral) | Resp 20 | Ht 1.499 m (4' 11") | Wt 49 kg (108 lb) | SpO2 96% | BMI 21.81 kg/m | BSA 1.43 m O2 Delivery Device: None (room air) ( 09/19/18 0001) 24 Hour Vital Min/Max: Systolic (24hrs), Av , Min:91 , Max:141 Diastolic (24hrs), Av, Min:71, Max:98Pulse Min: 77 Max: 98 Temp Min: 36.6 C (97.9 F) Max: 36.7 C (98.1 F) Resp Min: 18 Max: 20 SpO2 Min: 95 % Max: 97 % Intake/Output Summary (Last 24 hours) at 09/19/2018 0721 Last data filed at 09/18/2018 2252 Gross per 24 hour Intake 640 ml Output Net 640 ml Physical Exam: General: Awake, alert and oriented to person, place and time HEENT: RIGHT ptosis; decreased frontalis activation; gaze conjugate, EOM's intact, faces sy mmetric Cognition: no apparent deficits with recall, awareness, reasoning/problem-solving Language: fluent and articulate without evidence of aphasia or dysarthria Motor: FORBES's Derm: xeroform dressing/cap in place; necrotic flap; no evidence of exposed hardware Labs: CBC with diff last 72 hours (or 3 results) Recent Labs 09/18/18 1436 WBC 8.47 HB 11.5* HCT 36.8 PLT 307 Chemistries: Last 72 Hours (or 3 results): Recent Labs 09/16/18 0924 09/17/18 0810 09/18/18 0918 09/19/18 0604 NA 141 141 142 141 K 4.1 4.1 4.4 4.3 CL 110* 112* 112* 110* BICARB 26 25 22 24 BUN 15 16 12 13 EGFRAFRICAN >60 >60 >60 >60 CR 0.78 0.78 0.86 0.86 GLU 88 99 90 94 CA 8.4* 8.5* 8.8 8.8 MG 2.4 2.5 2.2 -- PO4 3.7 4.1 4.0 -- CULTURE RESULT Date Value Ref Range Status 05/13/2008 Corrected CSF Culture Source...............: Cerebrospinal Fluid RLB Gram Stain...........: Gram smear performed at [facility]. Culture: Final Report: No growth after 3 days. Final Report 04/29/2008 Corrected CSF Culture Source...............: Cerebrospinal Fluid RLB Gram Stain...........: Gram smear performed at [facility]. Culture: Rare Methicillin resistant Staphylococcus aureus Final ID MRSA Cefazolin R Clindamycin S Erythromycin R Oxacillin R Penicillin R Tetracycline S Trimeth/Sulfa S Vancomycin S Final Report Comment: Test performed at [facility]. 03/07/2008 Corrected CSF Culture Source...............: Cerebrospinal Fluid RLB Gram Stain...........: Gram smear performed at [facility]. Culture: Final Report: No growth after 3 days. Final Report Comment: Test performed at [facility]. 03/03/2008 Corrected CSF Culture Source...............: Cerebrospinal Fluid RLB Gram Stain...........: Gram smear performed at [facility]. Culture: Final Report: No growth after 3 days. Final Report Comment: Test performed at [facility]. 03/03/2008 Corrected Wound Culture Source...............: Skin Abscess RLB Gram Stain...........: Rare Squamous epithelial cells Rare PMN's Rare Gram positive cocci Culture: 1+ Methicillin resistant Staphylococcus aureus Final ID MRSA Cefazolin R Clindamycin S Erythromycin R Oxacillin R Penicillin R Tetracycline S Trimeth/Sulfa S Vancomycin S Final Report Resulted: 03/05/08 RLB ([facility]) [place] [place] [address] [place] [address] Comment: Test performed at [facility]. CULTURE RESULT Date Value Ref Range Status 09/17/2018 Preliminary No growth to date. 09/14/2018 Corrected Staphylococcus epidermidis (AA) 09/14/2018 Final Bacillus species, not B anthracis (A) 09/14/2018 Final Coagulase negative staphylococcus species (A) 07/11/2018 Final Staphylococcus epidermidis (A) 05/14/2018 Final Final Report:No Bacteria or Yeast isolated at 5 days. 05/14/2018 Final Final Report:No Bacteria or Yeast isolated at 5 days. 12/05/2017 Final Staphylococcus aureus (A) 12/05/2017 Final Staphylococcus aureus (A) 12/03/2017 Final Final Report:No Bacteria or Yeast isolated at 5 days. Current Medications: acetaminophen (TYLENOL) tablet 650 mg, 650 mg, oral, Q6H PRN atorvastatin (LIPITOR) tablet 80 mg, 80 mg, oral, QPM bisacodyl (DULCOLAX) suppository 10 mg, 10 mg, rectal, DAILY PRN famotidine (PEPCID) tablet 20 mg, 20 mg, oral, BID ipratropium-albuterol (DUO-NEB) nebulizer solution 3 mL, 3 mL, inhalation, Q6H PRN lactated ringers IV, 50 mL/hr, intravenous, CONTINUOUS lactobacillus rhamnosus (GG) (CULTURELLE) 15 billion cell capsule 1 capsule, 1 capsule, ora l, DAILY metoprolol succinate (TOPROL-XL) tablet 50 mg, 50 mg, oral, QPM nicotine (NICOTROL) 21 mg/24 hr patch 1 patch, 1 patch, transdermal, DAILY ondansetron (ZOFRAN) tablet 8 mg, 8 mg, oral, Q12H PRN piperacillin-tazobactam (ZOSYN) IV (minibag+) 3.375 g, 3.375 g, intravenous, Q8H polyethylene glycol (MIRALAX) packet 17 g, 17 g, oral, DAILY polyethylene glycol (MIRALAX) packet 34 g, 34 g, oral, TID PRN senna-docusate (SENOKOT S) 8.6-50 mg 2 tablet, 2 tablet, oral, BID spironolactone (ALDACTONE) tablet 25 mg, 25 mg, oral, QPM vancomycin (VANCOCIN) IV 500 mg, 500 mg, intravenous, Q12H ASSESSMENT: Gloria Adhikari is a 68 y.o.femalewith acomplicated history following surgic al management of ruptured anterior communicating artery aneurysm and hydrocephalus which occ urred in 2007, who has required multiple surgical procedures for wound infection, explant an d re-implantation of cranioplasty.She underwent synthes cranioplasty (05/08/18) with rotati onal flap performed by ENT which has been complicated by wounddehiscence managed by ENT ov er sewing (05/14-) and explant of cranioplasty and wound closure (07/11), with cultures posi tive for staph epidermidis. She is most recently s/p replacement of right mesh cranioplasty, wound debridement and reconstruction with a latissimus dorsi free tissue flap (08/03/18)no w presenting to [facility] for non-viable flap and concern for underlying infection/involvement of mesh cranioplasty.Blood culture remarkable for coag negative staph + staph epidermidis (o btained 09/14). Plan for combined surgery (ENT+ NSG) today. PLAN: OR for scalp debridement, wound washout, explant of cranioplasty, flap per ENT. ABX (Zosyn + Vanc) per primary service. PICC line pending negative blood cultures. Further antibiotics dependent upon wound cultures. Cares per ENT. ANSON MULLINS [facility] [address] [address] [address] Nettie Knowles PA - 09/18/2018 11:09 AM PDT INPATIENT PROGRESS NOTE Hospital Day:5 Author; ANSON MULLINS Attending Physician: Ata White MD Interval Hx: -pt without particular complaint; anxious for surgery Physical Exam: Last Vitals: BP 139/65 (BP Location: Left upper arm, Patient Position: Lying on back) | Pu lse 91 | Temp 37 C (98.6 F) (Oral) | Resp 18 | Ht 1.499 m (4' 11") | Wt 49 kg (108 l b) | SpO2 97% | BMI 21.81 kg/m | BSA 1.43 m O2 Delivery Device: None (room air) (09/18/18 0018) 24 Hour Vital Min/Max: Systolic (24hrs), Av , Min:125 , Max:139 Diastolic (24hrs), Av, Min:60, Max:99Puls e Min: 91 Max: 98 Temp Min: 36.6 C (97.9 F) Max: 37 C (98.6 F) Resp Min: 18 Max: 20 SpO2 Min: 92 % Max: 97 % Intake/Output Summary (Last 24 hours) at 09/18/2018 1109 Last data filed at 09/18/2018 1029 Gross per 24 hour Intake 1680 ml Output Net 1680 ml Physical Exam: General: Awake, alert and oriented to person, place and time HEENT: R ptosis; decreased right frontalis activation; gaze conjugate, EOM's intact; numbne ss R V1 Language: fluent and articulate without evidence of aphasia or dysarthria Motor: FORBES's Derm: R frontal flap without obvious drainage; no exposed hardware, although notable thinni ng of flap Labs: Chemistries: Last 72 Hours (or 3 results): Recent Labs 09/16/18 0924 09/17/18 0810 09/18/18 0918 NA 141 141 142 K 4.1 4.1 4.4 CL 110* 112* 112* BICARB 26 25 22 BUN 15 16 12 EGFRAFRICAN >60 >60 >60 CR 0.78 0.78 0.86 GLU 88 99 90 CA 8.4* 8.5* 8.8 MG 2.4 2.5 2.2 PO4 3.7 4.1 4.0 CULTURE RESULT Date Value Ref Range Status 05/13/2008 Corrected CSF Culture Source...............: Cerebrospinal Fluid RLB Gram Stain...........: Gram smear performed at [facility]. Culture: Final Report: No growth after 3 days. Final Report 04/29/2008 Corrected CSF Culture Source...............: Cerebrospinal Fluid RLB Gram Stain...........: Gram smear performed at [facility]. Culture: Rare Methicillin resistant Staphylococcus aureus Final ID MRSA Cefazolin R Clindamycin S Erythromycin R Oxacillin R Penicillin R Tetracycline S Trimeth/Sulfa S Vancomycin S Final Report Comment: Test performed at [facility]. 03/07/2008 Corrected CSF Culture Source...............: Cerebrospinal Fluid RLB Gram Stain...........: Gram smear performed at [facility]. Culture: Final Report: No growth after 3 days. Final Report Comment: Test performed at [facility]. 03/03/2008 Corrected CSF Culture Source...............: Cerebrospinal Fluid RLB Gram Stain...........: Gram smear performed at [facility]. Culture: Final Report: No growth after 3 days. Final Report Comment: Test performed at [facility]. 03/03/2008 Corrected Wound Culture Source...............: Skin Abscess RLB Gram Stain...........: Rare Squamous epithelial cells Rare PMN's Rare Gram positive cocci Culture: 1+ Methicillin resistant Staphylococcus aureus Final ID MRSA Cefazolin R Clindamycin S Erythromycin R Oxacillin R Penicillin R Tetracycline S Trimeth/Sulfa S Vancomycin S Final Report Resulted: 03/05/08 RLB ([facility]) [facility] [address] [place] [address] Comment: Test performed at [facility]. CULTURE RESULT Date Value Ref Range Status 09/14/2018 Corrected Staphylococcus epidermidis (AA) 09/14/2018 Final Bacillus species, not B anthracis (A) 09/14/2018 Final Coagulase negative staphylococcus species (A) 07/11/2018 Final Staphylococcus epidermidis (A) 05/14/2018 Final Final Report:No Bacteria or Yeast isolated at 5 days. 05/14/2018 Final Final Report:No Bacteria or Yeast isolated at 5 days. 12/05/2017 Final Staphylococcus aureus (A) 12/05/2017 Final Staphylococcus aureus (A) 12/03/2017 Final Final Report:No Bacteria or Yeast isolated at 5 days. Current Medications: acetaminophen (TYLENOL) tablet 650 mg, 650 mg, oral, Q6H PRN atorvastatin (LIPITOR) tablet 80 mg, 80 mg, oral, QPM bisacodyl (DULCOLAX) suppository 10 mg, 10 mg, rectal, DAILY PRN famotidine (PEPCID) tablet 20 mg, 20 mg, oral, BID ipratropium-albuterol (DUO-NEB) nebulizer solution 3 mL, 3 mL, inhalation, Q6H PRN [START ON 09/19/2018] lactated ringers IV, 50 mL/hr, intravenous, CONTINUOUS lactobacillus rhamnosus (GG) (CULTURELLE) 15 billion cell capsule 1 capsule, 1 capsule, ora l, DAILY metoprolol succinate (TOPROL-XL) tablet 50 mg, 50 mg, oral, QPM nicotine (NICOTROL) 21 mg/24 hr patch 1 patch, 1 patch, transdermal, DAILY ondansetron (ZOFRAN) tablet 8 mg, 8 mg, oral, Q12H PRN piperacillin-tazobactam (ZOSYN) IV (minibag+) 3.375 g, 3.375 g, intravenous, Q8H polyethylene glycol (MIRALAX) packet 17 g, 17 g, oral, DAILY polyethylene glycol (MIRALAX) packet 34 g, 34 g, oral, TID PRN senna-docusate (SENOKOT S) 8.6-50 mg 2 tablet, 2 tablet, oral, BID spironolactone (ALDACTONE) tablet 25 mg, 25 mg, oral, QPM vancomycin (VANCOCIN) IV 500 mg, 500 mg, intravenous, Q12H ASSESSMENT: Gloria Adhikari is a 68 y.o. female with a complicated history following surgical management of ruptured anterior communicating artery aneurysm and hydrocephalus which occurr ed in 2007, who has required multiple surgical procedures for wound infection, explant and r e-implantation of cranioplasty. She underwent synthes cranioplasty (05/08/18) with rotational flap performed by ENT which has been complicated by wound dehiscence managed by ENT over se wing (05/14-) and explant of cranioplasty and wound closure (07/11), with cultures positive for staph epidermidis. She is most recently s/p replacement of right mesh cranioplasty, woun d debridement and reconstruction with a latissimus dorsi free tissue flap (08/03/18) now pres enting to [facility] for non-viable flap and concern for underlying infection/involvement of mesh cranioplasty.Plan for combined surgery (ENT+ NSG) tomorrow. PLAN: OR tomorrow for wound washout, explant of cranioplasty, flap per ENT. NPO after MN. Type and Screen; INR; CBC; BMP. ABX (Zosyn + Vanc) per primary service. Hold prophylactic lovenox. Pre op note forthcoming. ANSON MULLINS [facility] [address] [address] [place] [address] Saskia Tinoco MD - 09/18/2018 10:58 AM PDT Neurosurgery Preoperative Note Planned procedure: Debridement of scalp, scalp rotation flap, removal and replacement of posadas rdware Date of procedure: 09/19/18 Booked? Yes Consented? Yes Marked? Yes NPO time: midnight Labs/Studies Lab Results Component Value Date WBC 7.62 09/15/2018 HB 11.5 09/15/2018 HCT 36.6 09/15/2018 PLT 307 09/15/2018 MCV 96.6 09/15/2018 RDW 48.8 09/15/2018 Lab Results Component Value Date WBC 7.62 09/15/2018 HB 11.5 09/15/2018 HCT 36.6 09/15/2018 PLT 307 09/15/2018 MCV 96.6 09/15/2018 RDW 48.8 09/15/2018 Lab Results Component Value Date INRPT 1.02 09/18/2018 Lab Results Component Value Date NA 142 09/18/2018 K 4.4 09/18/2018 CL 112 09/18/2018 BICARB 22 09/18/2018 BUN 12 09/18/2018 EGFRAFRICAN >60 09/18/2018 EGFRNONAFR >60 09/18/2018 CR 0.86 09/18/2018 GLU 90 09/18/2018 CA 8.8 09/18/2018 ANIONGAP 8 09/18/2018 ANIONALBCOR 10 09/18/2018 Type and Screen obtained? Yes If over 50, EKG obtained this admission (Yes/No/NA)? No Medications If on Lovenox, stopped the day prior to surgery (Yes/No/NA)? Yes On ASA or other antiplatelet agent? No Saskia Conway MD Neurological Surgery R1 Pager: [phone] ngie French PA-C - 09/18/2018 8:02 AM PDT DOS: 09/18/2018 Head and Neck Surgery Inpatient Daily Progress Note: Primary Care Provider: Mary Vazquez PA-C Admission Date: 09/13/2018 GLORIA ADHIKARI, [id number] Hospital Day #5 SUBJECTIVE INTERVAL EVENTS: - No acute events - Remains afebrile, wound and blood cultures grew staph epidermidis/GPC/GNR, on IV vanc and zosyn - Denies pain -To OR tomorrow with ENT and NSG, pt added on to the OR tomorow OBJECTIVE Last 24 hour min/max Temp: 37 C (98.6 F) Temp Min: 36.6 C (97.9 F) Max: 37 C (98.6 F) Pulse: 91 Pulse Min: 78 Max: 98 Resp: 18 Resp Min: 16 Max: 20 BP: 139/65 BP Min: 110/55 Max: 139/65 SpO2: 97 % SpO2 Min: 88 % Max: 97 % Body mass index is 21.81 kg/m. Intake/Output Summary (Last 24 hours) at 09/18/2018 0802 Last data filed at 09/18/2018 0531 Gross per 24 hour Intake 1680 ml Output Net 1680 ml PHYSICAL EXAM: General: Alert, comfortable, NAD HEENT: Right anterior scalp debrided muscle free flap with xeroform and telfa dressing in p lace, remaining muscle with clean crusting and small amount of fibrinous debris, no obvious purulent drainage or surrounding erythema, no exposed mesh LABS: Recent Labs 09/13/18204209/15/18 0657 09/16/18 0924 09/17/18 0810 NA 137 140 141 141 K 4.7 4.1 4.1 4.1 CL 104 109* 110* 112* BICARB 27 26 26 25 BUN 22* 15 15 16 CR 0.72 0.85 0.78 0.78 GLU 97 91 88 99 CA 8.8 8.6 8.4* 8.5* ALB 3.4* -- 3.2* 2.9* Recent Labs 09/13/18204209/15/18 0657 WBC 8.76 7.62 RBC 4.01 3.79* HB 12.4 11.5* HCT 38.3 36.6 PLT 348 307 CBG's Recent Labs 09/13/18204209/15/1857 09/16/18 0924 09/17/18 0810 GLU 97 91 88 99 ASSESSMENT/PLAN: Gloria Adhikari is a 68F with history of 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 Currently admitted after presenting with nonviable flap and infection an d TIA with left sided facial droop. Necrotic flap debrided at bedside on 09/14/18. Plan for I V antibiotics to resolve active infection and scalp rotational flap early week of 09/18. #s/p latissimus free flap c/b flap and infection - Plan PICC placement 48 hours after negative blood cultures - Wound and blood cultures from 09/14 growing staph epidermidis/GPC/GNR - Continue IV vanc and zosyn, lactobacillus - Daily CBC and blood cultures (until negative for 48 hours) thus far blood cx pending in p rocess - Daily xeroform and telfa dressing changes #FEN/GI - Regular diet - Daily RFP #Neuro: TIA - No new neurologic deficits, continue to monitor - NSG following #Resp: COPD - Continue duonebs PRN #Cardiac: HTN, CAD s/p NSTEMI - Continue home metoprolol, statin #Prophylaxis - Continue lovenox, SCDs - Out of bed and ambulate at least TID #Dispo: To OR tomorrow with ENT and NSG, NPO MN, MIVF to start MN. On the OR list, and cons ented. Code Status: FULL ANGIE FRENCH PA-C Department of Otolaryngology/Head and Neck Surgery Mail Code PV[address] [place] [address] Pager [phone] Consult/Night/Weekend Pager: [phone] Carlos Eduardo Alfonso MD - 0 09/17/2018 10:17 AM PDT DOS: 09/17/2018 Head and Neck Surgery Inpatient Daily Progress Note: Primary Care Provider: Mary Vazquez PA-C Admission Date: 09/13/2018 GLORIA ADHIKARI, [id number] Hospital Day #4 SUBJECTIVE INTERVAL EVENTS: - No acute events - Remains afebrile, wound and blood cultures grew staph epidermidis/GPC/GNR, on IV vanc and zosyn - Denies pain OBJECTIVE Last 24 hour min/max Temp: 36.7 C (98.1 F) Temp Min: 36.6 C (97.88 F) Max: 36.7 C (98.1 F) Pulse: 78 Pulse Min: 74 Max: 95 Resp: 16 Resp Min: 16 Max: 16 BP: 110/55 BP Min: 93/45 Max: 124/86 SpO2: 88 % SpO2 Min: 88 % Max: 98 % Body mass index is 21.81 kg/m. Intake/Output Summary (Last 24 hours) at 09/17/2018 1017 Last data filed at 09/17/2018 0816 Gross per 24 hour Intake 1230 ml Output Net 1230 ml PHYSICAL EXAM: General: Alert, comfortable, NAD HEENT: Right anterior scalp debrided muscle free flap with xeroform and telfa dressing in p lace, remaining muscle with clean crusting and small amount of fibrinous debris, no obvious purulent drainage or surrounding erythema, no exposed mesh LABS: Recent Labs 09/13/18204209/15/18 0657 09/16/18 0924 09/17/18 0810 NA 137 140 141 141 K 4.7 4.1 4.1 4.1 CL 104 109* 110* 112* BICARB 27 26 26 25 BUN 22* 15 15 16 CR 0.72 0.85 0.78 0.78 GLU 97 91 88 99 CA 8.8 8.6 8.4* 8.5* ALB 3.4* -- 3.2* 2.9* Recent Labs 09/13/18204209/15/18 0657 WBC 8.76 7.62 RBC 4.01 3.79* HB 12.4 11.5* HCT 38.3 36.6 PLT 348 307 CBG's Recent Labs 09/13/18204209/15/18 0657 09/16/18 0924 09/17/18 0810 GLU 97 91 88 99 ASSESSMENT/PLAN: Gloria Adhikari is a 68F with history of 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 Currently admitted after presenting with nonviable flap and infection an d TIA with left sided facial droop. Necrotic flap debrided at bedside on 09/14/18. Plan for I V antibiotics to resolve active infection and scalp rotational flap early week of 09/18. #s/p latissimus free flap c/b flap and infection - Repeat blood cultures today to evaluate for resolution of infection - Plan PICC placement 48 hours after negative blood cultures - Wound and blood cultures from 09/14 growing staph epidermidis/GPC/GNR - Continue IV vanc and zosyn, lactobacillus - Daily CBC and blood cultures (until negative for 48 hours) - Daily xeroform and telfa dressing changes #FEN/GI - Regular diet - Daily RFP #Neuro: TIA - No new neurologic deficits, continue to monitor - NSG following #Resp: COPD - Continue duonebs PRN #Cardiac: HTN, CAD s/p NSTEMI - Continue home metoprolol, statin #Prophylaxis - Continue lovenox, SCDs - Out of bed and ambulate at least TID #Dispo: Continue acute care given active infection with planned scalp procedure early week of 09/18 Code Status: FULL Lissa Rodriguez MD Otolaryngology - Head and Neck Surgery, PGY1 Pager [phone] Overnight/weekend consults pager [phone] I saw and evaluated the patient. I agree with the findings and the plan of care as documejalen benitez in the resident/provider note. Carlos Eduardo Maher MD Technology Applications Teacher Head and Neck Surgical Oncology Microvascular Reconstructive Surgery [facility] Alvin Wu MD - 09/17/2018 5:05 AM PDT NEUROSURGERY PROGRESS NOTE 09/17/2018 Hospital Day #: 4 Attending: Ata White MD Subjective/Interval Events: - No acute events overnight Objective: Last Vitals: BP 111/83 (BP Location: Right upper arm, Patient Position: Sitting) | Pulse 9 5 | Temp 36.7 C (98 F) (Oral) | Resp 16 | Ht 1.499 m (4' 11") | Wt 49 kg (108 lb) | SpO2 93% | BMI 21.81 kg/m | BSA 1.43 m 24 Hour Vital Min/Max: Systolic (24hrs), Av , Min:111 , Max:127 Diastolic (24hrs), Av, Min:68, Max:86 Pulse Min: 82 Max: 88 Temp Min: 36.2 C (97.2 F) Max: 36.8 C (98.2 F) Resp Min: 16 Max: 16 SpO2 Min: 92 % Max: 97 % Intake/Output Summary (Last 24 hours) at 09/17/2018 0510 Last data filed at 09/16/2018 2137 Gross per 24 hour Intake 1460 ml Output Net 1460 ml Physical Exam: Awake, alert, oriented to self, place, time, situation Follows commands briskly Speech fluent PERRL, EOMI Facial sensation intact Face symmetric Shoulder shrug equal bilaterally Tongue midline Strength: No pronator drift RUE: 06/25 D/B/T/HG LUE: 06/25 D/B/T/HG RLE: 06/25 HF/KE/DF/PF LLE: 06/25 HF/KE/DF/PF SILT Right crani mesh cranioplasty with latissimus dorsi free tissue flap covered with dressing and xeroform, clean/dry/intact, no active drainage noted. Labs: Lab Results Component Value Date/Time NA 141 09/16/2018 09:24 AM NA 136 05/08/2018 09:01 AM NA 142 05/14/2008 07:42 AM K 4.1 09/16/2018 09:24 AM K 3.5 05/08/2018 09:01 AM K 4.3 05/14/2008 07:42 AM CR 0.78 09/16/2018 09:24 AM CR 0.8 02/24/2018 11:28 AM CR 0.89 05/14/2008 07:42 AM HCT 36.6 09/15/2018 06:57 AM HCT 37.7 05/08/2018 09:01 AM HCT 33.1 (L) 05/14/2008 07:42 AM WBC 7.62 09/15/2018 06:57 AM WBC 7.5 05/14/2008 07:42 AM PLT 307 09/15/2018 06:57 AM PLT 306 05/14/2008 07:42 AM Current Facility-Administered Medications Medication Dose Route Frequency acetaminophen (TYLENOL) tablet 650 mg 650 mg oral Q6H PRN atorvastatin (LIPITOR) tablet 80 mg 80 mg oral QPM bisacodyl (DULCOLAX) suppository 10 mg 10 mg rectal DAILY PRN enoxaparin (LOVENOX) injection 40 mg 40 mg subcutaneous QPM famotidine (PEPCID) tablet 20 mg 20 mg oral BID ipratropium-albuterol (DUO-NEB) nebulizer solution 3 mL 3 mL inhalation Q6H PRN lactobacillus rhamnosus (GG) (CULTURELLE) 15 billion cell capsule 1 capsule 1 capsule oral DAILY metoprolol succinate (TOPROL-XL) tablet 50 mg 50 mg oral QPM nicotine (NICOTROL) 21 mg/24 hr patch 1 patch 1 patch transdermal DAILY ondansetron (ZOFRAN) tablet 8 mg 8 mg oral Q12H PRN piperacillin-tazobactam (ZOSYN) IV (minibag+) 3.375 g 3.375 g intravenous Q8H polyethylene glycol (MIRALAX) packet 17 g 17 g oral DAILY polyethylene glycol (MIRALAX) packet 34 g 34 g oral TID PRN senna-docusate (SENOKOT S) 8.6-50 mg 2 tablet 2 tablet oral BID spironolactone (ALDACTONE) tablet 25 mg 25 mg oral QPM vancomycin (VANCOCIN) IV 500 mg 500 mg intravenous Q12H ASSESSMENT: Gloria Adhikari is a 68 y.o. female with a complicated history following surgical management of ruptured anterior communicating artery aneurysm and hydrocephalus which occurr ed in 2007, who has required multiple surgical procedures for wound infection, explant and r e-implantation of cranioplasty. She underwent synthes cranioplasty (05/08/18) with rotational flap performed by ENT which has been complicated by wound dehiscence managed by ENT over se wing (05/14-) and explant of cranioplasty and wound closure (07/11), with cultures positive for staph epidermidis. She is most recently s/p replacement of right mesh cranioplasty, woun d debridement and reconstruction with a latissimus dorsi free tissue flap (08/03/18) now pres enting to the neurosurgery team for non-viable flap and concern for underlying infection/inv olvement of mesh cranioplasty. Neurological status stable. PLAN: - OR with ENT early next week for scalp rotational flap, nsg available - Pain control - Monitor for acute neurologic changes - SW to discuss palliative care consult DVT prophylaxis: Lovenox Disposition: Pending clinical course. Please contact the neurosurgery cooper on-call pager [phone] with questions. Alvin Mcclure MD Neurosurgery PGY1 Pager [phone] i, Carlos Eduardo Donald MD - 09/16/2018 8:36 AM PDT DOS: 09/16/2018 Head and Neck Surgery Inpatient Daily Progress Note: Primary Care Provider: Mary Vazquez PA-C Admission Date: 09/13/2018 GLORIA ADHIKARI, [id number] Hospital Day #3 SUBJECTIVE INTERVAL EVENTS: - No acute events - Remains afebrile, wound and blood cultures growing staph epidermidis/GPC/GNR, on IV vanc and zosyn - Denies pain OBJECTIVE Last 24 hour min/max Temp: 36.4 C (97.6 F) Temp Min: 36.2 C (97.2 F) Max: 36.8 C (98.2 F) Pulse: 79 Pulse Min: 79 Max: 88 Resp: 16 Resp Min: 16 Max: 16 BP: 107/55 BP Min: 91/73 Max: 134/97 SpO2: 90 % SpO2 Min: 90 % Max: 97 % Body mass index is 21.81 kg/m. Intake/Output Summary (Last 24 hours) at 09/16/2018 0836 Last data filed at 09/16/2018 0442 Gross per 24 hour Intake 1497 ml Output Net 1497 ml PHYSICAL EXAM: General: Alert, comfortable, NAD HEENT: Right anterior scalp debrided muscle free flap with xeroform and telfa dressing in place, remaining muscle with clean crusting and small amount of fibrinous debris, no obvious purulent drainage or surrounding erythema, no exposed mesh LABS: Recent Labs 09/13/18204209/15/18 0657 NA 137 140 K 4.7 4.1 CL 104 109* BICARB 27 26 BUN 22* 15 CR 0.72 0.85 GLU 97 91 CA 8.8 8.6 ALB 3.4* -- Recent Labs 09/13/18204209/15/18 0657 WBC 8.76 7.62 RBC 4.01 3.79* HB 12.4 11.5* HCT 38.3 36.6 PLT 348 307 CBG's Recent Labs 09/13/18204209/15/18 0657 GLU 97 91 ASSESSMENT/PLAN: Gloria Adhikari is a 68F with history of 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 Currently admitted after presenting with nonviable flap and infection an d TIA with left sided facial droop. Necrotic flap debrided at bedside on 09/14/18. Plan for I V antibiotics to resolve active infection and scalp rotational flap early next week. #s/p latissimus free flap c/b flap and infection - f/u cultures, growing staph epidermidis/GPC/GNR - Continue IV vanc and zosyn, lactobacillus - Daily CBC - Daily xeroform and telfa dressing changes #FEN/GI - Regular diet - Daily RFP #Neuro: TIA - No new neurologic deficits, continue to monitor - NSG following #Resp: COPD - Continue duonebs PRN #Cardiac: HTN, CAD s/p NSTEMI - Continue home metoprolol, statin #Prophylaxis - Continue lovenox, SCDs - Out of bed and ambulate at least TID #Dispo: Continue acute care given active infection with planned scalp procedure early next week Code Status: FULL Charu Negron MD PGY-5, Otolaryngology/Head and Neck Surgery I saw and evaluated the patient. I agree with the findings and the plan of care as low benitez in the resident/provider note. Carlos Eduardo Maher MD Technology Applications Teacher Head and Neck Surgical Oncology Microvascular Reconstructive Surgery [facility] Brenda Duval MD - 4:22 AM PDT NEUROSURGERY PROGRESS NOTE 09/16/2018 Hospital Day #: 3 Attending: Ata White MD Subjective/Interval Events: No acute events overnight. Objective: Last Vitals: BP (!) 134/97 (BP Location: Right upper arm, Patient Position: Lying on back) | Pulse 82 | Temp 36.2 C (97.2 F) | Resp 16 | Ht 1.499 m (4' 11") | Wt 49 kg (108 l b) | SpO2 92% | BMI 21.81 kg/m | BSA 1.43 m 24 Hour Vital Min/Max: Systolic (24hrs), Av , Min:91 , Max:134 Diastolic (24hrs), Av, Min:65, Max:97 Pulse Min: 82 Max: 88 Temp Min: 36.2 C (97.2 F) Max: 36.8 C (98.2 F) Resp Min: 16 Max: 16 SpO2 Min: 92 % Max: 97 % Intake/Output Summary (Last 24 hours) at 09/16/2018 0423 Last data filed at 09/15/2018 2105 Gross per 24 hour Intake 1782 ml Output Net 1782 ml Physical Exam: Awake, alert, oriented to self, place, time, situation Follows commands briskly Speech fluent PERRL, EOMI Facial sensation intact Face symmetric Shoulder shrug equal bilaterally Tongue midline Strength: No pronator drift RUE: 06/25 D/B/T/HG LUE: 06/25 D/B/T/HG RLE: 06/25 HF/KE/DF/PF LLE: 06/25 HF/KE/DF/PF SILT Right crani mesh cranioplasty with latissimus dorsi free tissue flap covered with dressing and xeroform, clean/dry/intact, no active drainage noted. Labs: Lab Results Component Value Date/Time NA 140 09/15/2018 06:57 AM NA 136 05/08/2018 09:01 AM NA 142 05/14/2008 07:42 AM K 4.1 09/15/2018 06:57 AM K 3.5 05/08/2018 09:01 AM K 4.3 05/14/2008 07:42 AM CR 0.85 09/15/2018 06:57 AM CR 0.8 02/24/2018 11:28 AM CR 0.89 05/14/2008 07:42 AM HCT 36.6 09/15/2018 06:57 AM HCT 37.7 05/08/2018 09:01 AM HCT 33.1 (L) 05/14/2008 07:42 AM WBC 7.62 09/15/2018 06:57 AM WBC 7.5 05/14/2008 07:42 AM PLT 307 09/15/2018 06:57 AM PLT 306 05/14/2008 07:42 AM Current Facility-Administered Medications Medication Dose Route Frequency acetaminophen (TYLENOL) tablet 650 mg 650 mg oral Q6H PRN atorvastatin (LIPITOR) tablet 80 mg 80 mg oral QPM bisacodyl (DULCOLAX) suppository 10 mg 10 mg rectal DAILY PRN chlorhexidine (PERIDEX) mouthwash 15 mL 15 mL oral Q6H enoxaparin (LOVENOX) injection 40 mg 40 mg subcutaneous QPM famotidine (PEPCID) tablet 20 mg 20 mg oral BID ipratropium-albuterol (DUO-NEB) nebulizer solution 3 mL 3 mL inhalation Q6H PRN lactobacillus rhamnosus (GG) (CULTURELLE) 15 billion cell capsule 1 capsule 1 capsule oral DAILY metoprolol succinate (TOPROL-XL) tablet 50 mg 50 mg oral QPM nicotine (NICOTROL) 21 mg/24 hr patch 1 patch 1 patch transdermal DAILY ondansetron (ZOFRAN) tablet 8 mg 8 mg oral Q12H PRN piperacillin-tazobactam (ZOSYN) IV (minibag+) 3.375 g 3.375 g intravenous Q8H polyethylene glycol (MIRALAX) packet 17 g 17 g oral DAILY polyethylene glycol (MIRALAX) packet 34 g 34 g oral TID PRN senna-docusate (SENOKOT S) 8.6-50 mg 2 tablet 2 tablet oral BID spironolactone (ALDACTONE) tablet 25 mg 25 mg oral QPM vancomycin (VANCOCIN) IV 750 mg 750 mg intravenous Q12H ASSESSMENT: Gloria Adhikari is a 68 y.o. female with a complicated history following surgical management of ruptured anterior communicating artery aneurysm and hydrocephalus which occurr ed in 2007, who has required multiple surgical procedures for wound infection, explant and r e-implantation of cranioplasty. She underwent synthes cranioplasty (05/08/18) with rotational flap performed by ENT which has been complicated by wound dehiscence managed by ENT over se wing (05/14-) and explant of cranioplasty and wound closure (07/11), with cultures positive for staph epidermidis. She is most recently s/p replacement of right mesh cranioplasty, woun d debridement and reconstruction with a latissimus dorsi free tissue flap (08/03/18) now pres enting to the neurosurgery team for non-viable flap and concern for underlying infection/inv olvement of mesh cranioplasty. Neurological status stable. PLAN: - OR with ENT early next week for scalp rotational flap, nsg available - Pain control - Monitor for acute neurologic changes - SW to discuss palliative care consult DVT prophylaxis: Lovenox Disposition: Pending clinical course. Please contact the neurosurgery cooper on-call pager [phone] with questions. Brenda Barillas MD Neurosurgery PGY-1 Pager: [phone] Associated attestation - Alfreda Mccollum MD - 09/16/2018 10:52 AM PDTI agree with the re sident note above. Any changes if any are noted below. Alfreda Mccollum MD Skull Base Fellow Department of Neurological Surgery [facility], [place] Angie French PA-C - 09/15/2018 8:35 AM PDT DOS: 09/15/2018 Head and Neck Surgery Inpatient Daily Progress Note: Primary Care Provider: Mary Vazquez PA-C Admission Date: 09/13/2018 GLORIA ADHIKARI, [id number] Hospital Day #2 SUBJECTIVE INTERVAL EVENTS: No acute events overnight NSG consulted as we plan to take Ms. Adhikari to OR next week for possible scalp rotation fl ap, and if they need to do any intervention will follow up with they recs On IV abx WBC wnl this am CT head scan showed postoperative fluid, pseudomeningocele, or infection/abscess OBJECTIVE Last 24 hour min/max Temp: 37.2 C (99 F) Temp Min: 36.6 C (97.9 F) Max: 37.2 C (99 F) Pulse: 87 Pulse Min: 79 Max: 98 Resp: 16 Resp Min: 16 Max: 16 BP: 138/74 BP Min: 98/54 Max: 140/64 SpO2: 95 % SpO2 Min: 92 % Max: 96 % Body mass index is 21.81 kg/m. Intake/Output Summary (Last 24 hours) at 09/15/2018 0836 Last data filed at 09/15/2018 0400 Gross per 24 hour Intake 1380 ml Output Net 1380 ml PHYSICAL EXAM: General: Alert, comfortable, NAD HEENT: debridement of latissimus dorsi flap at bedside done on 09/14, muscle exposed and r eplaced with Xeroform. No drainage, no foul smelling LABS: Recent Labs 09/13/18204209/15/18 0657 NA 137 140 K 4.7 4.1 CL 104 109* BICARB 27 26 BUN 22* 15 CR 0.72 0.85 GLU 97 91 CA 8.8 8.6 ALB 3.4* -- No results for input(s): MG in the last 168 hours. 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 Post-cranioplasty course c/b exposure and subsequent infecti on of her cranioplasty ultimately requiring explantation. She is most recently s/p re-placem ent of right mesh cranioplasty, wound debridement and reconstruction with a latissimus dorsi free tissue flap on 08/03/18. She presents with approximately one week of foul smell and malinda ckened appearance of the area of her free flap, as well as a recent TIA with left sided faci al droop. The visualized temporal portion of the flap is not viable thus a bedside debrideme nt by Dr. Martinez was done. -Continue IV abx broad spectrum for now -NSG consulted for rec's regarding pt's mesh management, as we plan to take Ms. Adhikari for a scalp rotation flap sometime next week -WBC wnl. AF, VSS Prophylaxis Antibiotics: lactobacillus Activity: Out of bed to chair & ambulate ad cadence. Thromboembolism PPY: high risk for VTE -SCD's/OOB TID/Lovenox ppx Ulcer Prevention: Famotidine High risk, pneumonia: Wean O2 as tolerated Constipation: Scheduled and PRN bowel regimen Dispo: Pending clinical course Code Status: FULL ANGIE FRENCH PA-C Otolaryngology-Head and Neck Surgery [facility] Pager [phone] Shelly Jenkins RT - 09/14/2018 2:59 PM PDTClean, dry, and intact. Pt denies pain. No signs of extravasation. F lushed pre & post IV contrast with normal saline. documented in this encoun ter H&P Notes Dillan Bridges MD - 09/15/2018 10:04 AM PDT Neurosurgery Consult Date: 09/15/2018 Author: Dillan Bridges MD Admitting Physician: Ata White MD HPI/Interval Update: Gloria Adhikari is a 68 y.o. female evaluated by the neurosurgery team for concern s for non-viable scalp flap with potential for underlying infection of mesh cranioplasty. Delmar coyle has a complicated history following surgical management of ruptured anterior communicating artery aneurysm and hydrocephalus which occurred in 2007, who has required multiple surgica l procedures for wound infection, explant and re-implantation of cranioplasty, and eventual plastic surgery consultation. She underwent synthes cranioplasty (05/08/18) with rotational flap performed by Dr Ata White. She represented with wound dehiscence managed with over sewi ng of the wound by ENT (05/14-05/17). Unfortunately, Ms Adhikari again presented for medical attention after her son noticed recurrent skin opening with cranioplasty exposure. She was a dmitted to neurosurgery service on 07/10 and underwent explant of her cranioplasty and wound closure by ENT the following day. She was discharged to home on 07/13. Ms Adhikari's surgi eagle culture was notable for growth of staph epidermidis. She underwent wound debridement and right mesh cranioplasty on 08/03. She recovered well, but later was noted to have foul odor from her wound at the end of July, and she was re-admitted by the ENT service on 09/14 for no n-viable flap and concern for underlying infection. Review Of Systems: Neurologic: No unusual headaches, inability to speak, poor balance, num bness, tingling, tremors, memory loss, disturbances in coordination or sensation of room spi nning. Past Histories Allergies: Allergies Allergen Reactions [place] Hives Betadine [Povidone-Iodine (With Soap)] Rash Cipro [Ciprofloxacin] Nausea and Vomiting Codeine Hcl Nausea and Vomiting Sulfa (Sulfonamide Antibiotics) Erythema Past Surgical History Procedure Laterality Date Partial thyroidectomy Right Hysterectomy Bladder suspension 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 Driller And Reamer shunt Tympanoplasty Right 1987 Lumpectomy of left breast 1979 Coronary stent placement 12/28/2014 status post stent placement in the mid LAD Removal of vp information technology shunt Cholecystectomy Past Medical History: Diagnosis Date Abnormal LFTs (liver function tests) CAD in [place]agan [place] artery s/p NSTEMI 12/27/2014; status post stent placement in the mid LAD Chronic pain COPD on oxygen at night Essential hypertension GERD (gastroesophageal reflux disease) Goiter Hemorrhagic stroke ([facility]) 2007 aneurysm MRSA (methicillin resistant staph aureus) culture positive post cariotomy for SAH Otitis media recent abx preadmit PONV (postoperative nausea and vomiting) Subarachnoid hemorrhage due to ruptured aneurysm ([facility]) 2007 Tobacco dependence Family History Problem Relation Additional Family History Mother dementia Cancer Father brain Cancer Brother lung Medications Prescriptions prior to admission Medication Sig Dispense Refill acetaminophen 325 mg oral tablet Take 1-2 tablets by mouth every four hours as needed. Indications: Pain atorvastatin 80 mg oral tablet Take 80 [...] Take 25 mg by mouth once daily. Scheduled Medication: atorvastatin 80 mg QPM chlorhexidine 15 mL Q6H enoxaparin 40 mg QPM famotidine 20 mg BID lactobacillus rhamnosus (GG) 1 capsule DAILY metoprolol succinate 50 mg QPM piperacillin-tazobactam 3.375 g Q8H polyethylene glycol 17 g DAILY senna-docusate 2 tablet BID spironolactone 25 mg QPM vancomycin 750 mg Q12H PRN Medication: acetaminophen 650 mg Q6H PRN bisacodyl 10 mg DAILY PRN ipratropium-albuterol 3 mL Q6H PRN ondansetron 8 mg Q12H PRN polyethylene glycol 34 g TID PRN IV Medication: Exam Physical Exam: Vitals: Last 24 hour min/max Temp: 36.7 C (98.1 F) Temp Min: 36.6 C (97.9 F) Max: 37.2 C (99 F) Pulse: 88 Pulse Min: 87 Max: 98 Resp: 16 Resp Min: 16 Max: 16 BP: 101/86 BP Min: 98/54 Max: 140/64 SpO2: 95 % SpO2 Min: 92 % Max: 96 % Body mass index is 21.81 kg/m. Awake, alert, oriented to self, time, place, situation Following commands briskly Speech fluent PERRL EOMI Facial sensation intact Face symmetric Shoulder shrug equal bilaterally Tongue midline Strength: No pronator drift RUE: 5/5 D/B/T/HG LUE: 5/5 D/B/T/HG RLE: 5/5 HF/KE/DF/PF LLE: 5/5 HF/KE/DF/PF SILT Xeroform overlying latissimus dorsi flap, no active drainage noted Data Radiology: Complete Blood Count/Coags Recent Labs 09/13/18 2043 09/15/18 0657 WBC 8.76 7.62 HB 12.4 11.5* HCT 38.3 36.6 PLT 348 307 Recent Labs 08/03/18 2343 08/04/18 1625 08/08/18 0202 08/08/18 0640 INRPT 1.19 -- 1.18 -- -- -- APTT -- < > 73.6* < > 63.4* 69.2* < > = values in this interval not displayed. Blood Gas No results for input(s): FIO2, PH, PCO2, PO2, HCO3, AHMKG9HMD, L0DNCDIG, B5QGCNTWB in the l ast 720 hours. CSF Results No results for input(s): WBCCSF, RBCCSF, GLUCOSECSF, PROTEINCSF in the last 8640 hours. Urinalysis No results for input(s): URINECOLOR, URAPPEARANCE, URINELE, URINENITRITE, URINEPROTEIN, URI NEBLOOD, URSPECGRAV, URINEKETONES, URINEGLUCOSE, URINEBACTERI, URINESQEPI, URINEWBC, URINEYE AST in the last 8640 hours. Chemistry Recent Labs 05/09/18 0005 08/10/18 0528 09/13/18204209/15/18 0657 NA 137 < > 138 137 140 K 4.0 < > 4.5 4.7 4.1 CL 109* < > 105 104 109* BICARB 21 < > 26 27 26 BUN 13 < > 13 22* 15 CR 0.68 < > 0.72 0.72 0.85 GLU 105* < > 98 97 91 CA 7.8* < > 8.1* 8.8 8.6 MG 1.7 -- -- -- -- PO4 2.7 < > 4.4 -- -- < > = values in this interval not displayed. LFT/Lipid Panel Recent Labs 09/13/182042 TBILI 0.4 AP 165* TP 7.8 ALB 3.4* AST 32 ALT 25 No results for input(s): CHOL, LDL, HDL, TRI in the last 8640 hours. Culture Results CULTURE RESULT (no units) Date Value 05/13/2008 CSF Culture Source...............: Cerebrospinal Fluid RLB Gram Stain...........: Gram smear performed at [facility]. Culture: Final Report: No growth after 3 days. Final Report 04/29/2008 CSF Culture Source...............: Cerebrospinal Fluid RLB Gram Stain...........: Gram smear performed at [facility]. Culture: Rare Methicillin resistant Staphylococcus aureus Final ID MRSA Cefazolin R Clindamycin S Erythromycin R Oxacillin R Penicillin R Tetracycline S Trimeth/Sulfa S Vancomycin S Final Report CULTURE RESULT (no units) Date Value 09/14/2018 Staphylococcus epidermidis (AA) 07/11/2018 Staphylococcus epidermidis (A) 05/14/2018 Final Report:No Bacteria or Yeast isolated at 5 days. 05/14/2018 Final Report:No Bacteria or Yeast isolated at 5 days. Assesment: Gloria Adhikari is a 68 y.o. female evaluated by the neurosurgery team for non-viable flap and concern for underlying infection/involvement of mesh cranioplasty. PLAN: - ENT planning to take to OR early next week for scalp rotational flap, we will be availabl leonides Bridges MD Neurosurgery, PGY-2 Pager [phone] Risk and Morbidity Patient Risk Modifiers - Including but not limited to. Age: 68 y.o. female DNR: Full Code Transfer status/urgency : From Outside Hospital : From [facility] ER: Symptom Onset: More than 12 hours (09/13/18) Patient Acuity: 3 (09/13/182036) Destination: Acute (09/13/182036) Palliative/end of Life Care :No First GCS and if Mechanically Ventilated/Intubated: Best Motor Response: 6-->(M6) obeys commands (09/13/182036) Best Verbal Response: 5-->(V5) oriented (09/13/182036) Best Eye Response: 4-->(E4) spontaneous (09/13/182036) Score ([place] Coma Scale): 15 (09/13/182036) Last GCS and if Mechanically Ventilated/Intubation: Best Motor Response: 6-->(M6) obeys commands (09/14/181229) Best Verbal Response: 5-->(V5) oriented (09/14/18 123) Best Eye Response: 4-->(E4) spontaneous (09/14/18 1230) Score ([place] Coma Scale): 15 (09/14/18 1230) Comatose State: If GCS<9 Then patient by definition is in a comatose state Score ([place] Coma Scale) Min: 15 Max: 15 Loss of Consciousness: No Cerebral Thrombus and/or Stroke: No Current Level of Consciousness: alert (09/15/18 0342) Received Ventriculostomy/Ventricular Catheter: No ventricular catheter placed Last ICP if Ventricular Catheter Placed: Malnutrition: No Surgical Interventions :09/14/2018 1. Postoperative surgical complication involving skin associated with dermatologic procedur e, unspecified complication Procedure(s): SCALP DEBRIDEMANT, USING SPY Primary: Augusto Shaikh MD Procedures: No admission procedures for hospital encounter. Coagulopathy: No Weight loss prior to admission: No Patient Active Problem List Diagnosis Date Noted Postoperative surgical complication involving skin associated with dermatologic procedu re, unspecified complication 09/14/2018 Postoperative anemia due to acute blood loss 08/05/2018 History of cranioplasty 07/10/2018 Wound dehiscence 07/10/2018 History of chronic respiratory failure 05/26/2018 Ischemic [...] weeks. Continuous tobacco abuse Coronary arteriosclerosis in [place] artery 03/06/2015 History of non-ST elevation myocardial [...] Hypotension/Shock:No CHF:No Metabolic Disorder:No Malignancy: No Edema/Herniation:No Angel Alcocer PA - 12:44 AM PDT ED OBSERVATION UNIT HISTORY & PHYSICAL: PCP: Mary Vazquez PA-C ED ATTENDING: Meeta Donnelly MD Reason for Admission: Post Op Concern HPI: Gloria Adhikari is a 68 y.o. female with a PMH of CAD, NSTEMI s/p stenet, HTN , COPD, SAH from ACOM aneurysm rupture, s/p clipping who then had multiple cranioplasty surg eries, now s/p flap procedure done 08/06/18 reversing a cranioplasty per ENT who presented to the ED for evaluation of possible wound infection. 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 She developed an infection of her cranioplasty with associated epidural abscess requiring explantation in 12/08 and underwent a repeat synthetic cranioplasty with the Neurosurgery team 05/09, at ich time Dr White/Tesha performed a rotation advancement scalp flap for coverage of new impla nt. This was further complicated by recurrent exposed cranioplasty requiring a take back to the OR on 07/11 for removal of cranioplasty. She is most recently s/p re-placement of right m esh cranioplasty, wound debridement and reconstruction with a latissimus dorsi free tissue f lap on 08/03/18." Gloria Adhikari was noted to have Left side facial drooping at home and went to [facility] ED, CT head that was reportedly negative. At ED it was noted she had foul smelling disch arge from wound, contacted her [facility] ENT and referred to [facility] ED. No records of ED visit on 09/12, reportedly CT head neg, facial droop resolved and has anurag l neuro exam now, ?TIA, unclear what was done at OSH, have requested records. She denies any fevers/chills, POSADAS, weakness, numbness/tingling Upon presentation to the Acute ED, her vital signs were normal. her exam revealed right s ided latissimus dorsi flap covered with thick plaque of necrotic tissue, lateral aspect of f lap visualized and appears soft and warm, unable to appreciate any dehiscence in her incisio ns or purulent drainage from under the flap, no surrounding erythema A work up was initiated which included CBC WNL, CMP WNL, lactate 1.4. Imaging from OSH ([facility] [place]) being pushed ENT evaluated and await final recs Once stable, the patient was transferred to the Emergency Department Observation Unit with a diagnosis of possible surgical wound infection for continuation of care including observat ion PAST MEDICAL HISTORY: Past Medical History: Diagnosis Date Abnormal LFTs (liver function tests) CAD in [place] artery s/p NSTEMI 12/27/2014; status post stent placement in the mid LAD Chronic pain COPD on oxygen at night Essential hypertension GERD (gastroesophageal reflux disease) Goiter Hemorrhagic stroke ([facility]) 2007 aneurysm MRSA (methicillin resistant staph aureus) culture positive post cariotomy for SAH Otitis media recent abx preadmit PONV (postoperative nausea and vomiting) Subarachnoid hemorrhage due to ruptured aneurysm ([facility]) 2007 Tobacco dependence PAST SURGICAL HISTORY: Past Surgical History Procedure Laterality Date Partial thyroidectomy Right Hysterectomy Bladder suspension 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 [employer] shunt Tympanoplasty Right 1987 Lumpectomy of left breast 1978 Coronary stent placement 12/28/2014 status post stent placement in the mid LAD Removal of vp information technology shunt Cholecystectomy MEDICATIONS: Patient's Medications New Prescriptions No medications on file Previous Medications ACETAMINOPHEN 325 MG ORAL TABLET Take 1-2 tablets by mouth every four hours as needed. Indications: Pain ATORVASTATIN 80 MG ORAL TABLET Take 80 mg by mouth once daily. IPRATROPIUM-ALBUTEROL 0.5 MG-3 MG(2.5 MG BASE)/3 ML INHALATION SOLUTION FOR NEBULIZATION Inhale 3 mL two times daily. METOPROLOL SUCCINATE 50 MG ORAL TABLET EXTENDED RELEASE 24 HR Take 50 mg by mouth once daily. NICOTINE 21 MG/24 HR TRANSDERMAL PATCH 24 HOUR Apply 1 patch to skin once daily. POLYETHYLENE GLYCOL 17 GRAM ORAL POWDER IN PACKET Mix 1 packet and take orally three ti mes daily as needed (1st line - for no BM for 2 days). Indications: constipation SPIRONOLACTONE 25 MG ORAL TABLET Take 25 mg by mouth once daily. Modified Medications No medications on file Discontinued Medications No medications on file ALLERGIES: Allergies Allergen Reactions [place] Hives Betadine [Povidone-Iodine (With Soap)] Rash Cipro [Ciprofloxacin] Nausea and Vomiting Codeine Hcl Nausea and Vomiting Sulfa (Sulfonamide Antibiotics) Erythema ROS: Unchanged from recent prior evaluation except as noted in the HPI. PHYSICAL EXAM: Vitals: 09/13/18 2033 09/13/18 2037 09/14/18 0030 09/14/18 0031 BP: 125/65 130/65 Pulse: (!) 93 Resp: 16 Temp: 36.7 C TempSrc: Oral SpO2: 99% 99% Weight: 49 kg (108 lb) Height: 1.499 m (4' 11") General appearance: Adult male appearing well nourished and hydrated in NAD. HEENT: Normocephalic, atraumatic. Sclera anicteric, without injection, PERRLA, EOMI. Mucous membranes moist, orharynx without exudate, uvula mid-line. Neck supple, no lymphadenopathy , no masses. right sided latissimus dorsi flap covered with thick plaque of necrotic tissue, lateral asp ect of flap visualized and appears soft and warm, unable to appreciate any dehiscence in her incisions or purulent drainage from under the flap, no surrounding erythema Has mild droop of R eyelid, per pt present since surgery CV: RRR, no rubs, murmurs or gallops. Resp: Chest symmetrical. No respiratory distress. No use of accessory muscles. Breath s ounds equal bilaterally, no wheezes, rales, rhonchi, or rubs. GI: Abdomen non-distended, soft, non-tender, no rebound, no guarding, NABS x 4. No HSM. Extrem: No deformities or visible joint swelling. Peripheral Vascular: No cyanosis or clubbing. No dependent edema. 2+ Posterior Tibial pu lses bilaterally. Neuro: A&O x 3, CN II-XII intact grossly, motor 5/5 in all ext's, sensation intact, fine mo tor intact. Psych: Appropriate affect and insight. Skin: Appropriate color, warm, dry. Consults: ENT ASSESSMENT/PLAN: Gloria Adhikari is a 68 y.o. 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 1. Possible wound infection- no s/s of SIRS/sepsis, afebrile, no leukocytosis, no indicatio n for abx - ENT to re-eval in AM - NPO at MN - images from OSH being pushed to [facility] 2. CAD, COPD, HTN- stable - cont home meds 3. Possible TIA > 24 hrs ago, had left side facial droop on 09/12 per son, pt did not notice this, CT head reportedly neg and droop resolved, she feels fine now, normal neuro exam, pt off ASA due to recent surgeries, no hx of arrhythmias, no chest pain, ambualting well w/o as sistance - OSH records requested - cont home meds, restart ASA when able from surgery standpoint Disposition: TBD after ENT evaluation ANSON Simon [facility] EMERGENCY DEPARTMENT [address] [place] [address] documented in this enco unter Procedure Notes Ata White MD - 09/22/2018 11:27 AM PDTAssociated Order(s): OPERATION RECORDDate of Service : 09/19/2018 Attending Surgeon:Ata White MD Addendum: This woman had Integra used to reconstruct her scalp. The size of the Integra w as 14 x 5 cm. This was laid into the wound and secured with genoveva and then a dressing columba lied to it. MD CHANDRIKA Hansen/SWAPNILL /[id number] signed by Ata White MD at 09/27/2018 2:04 PM PDTWaAta michael MD - 09/22/2018 11:27 AM PDTAssociated Order(s): OPERATION RECORDDate of Service: 0 09/19/2018 Attending Surgeon:Ata White MD Planisher(s):Augusto Shaikh MD. Preoperative Diagnosis: Partially necrotic latissimus dorsi flap. Operation Performed: Composite resection of composite muscle and split-thickness skin maira t, approximately 75 sq cm; rotation advancement flap of scalp 14 x 8 cm and closure with Int egra of the posterior scalp wound after undermining of approximately 14 x 5 cm. Operative Note: This woman had an issue with her scalp. Latissimus flap was viable proxim ally and distally, but in the middle part over the mesh, it is nonviable. We needed to fix this, and so she was brought to the operating room to be explored and for her surgical proce dure. She was brought into the operating room. General anesthesia was induced and she was orotra cheally intubated, prepped and draped in the usual manner. She had the wound explored, and we removed all of the necrotic lat. Most of the center part was . The proximal portion was good. Distal portion and parts under the scalp were good. This exposed a fair amount of the mesh. We then elevated a 14 x 8 cm scalp flap. We incised through skin and subcutan eous tissue, and above the galea, elevated the flap posteriorly. Once we had done this, we were able to then remove the entire mesh, which was done by the neurosurgical service, and t hings were irrigated, cultures were taken, and things were cleaned up. We then rotated the scalp flap over and secured it to the skin using 3-0 nylon sutures in a horizontal mattress fashion. I could not use subcutaneous skin sutures because of the friability of the tissue and I needed to get good closure. There was no tension on the closure, and we completely co nguyen the entire defect. We were now left with an area of bone posteriorly with good perios teum. We freed up posteriorly below the galea, but above the periosteum posteriorly 14 x 5 cm to undermine and did a galeatomy to allow for advancement of the scalp. This did close t he defect a fair bit, and we then laid in Integra and sutured it in and packing was applied over top of it. This allowed for excellent closure of the wound. She was woken up, extubated, sent to recovery room. MD CHANDRIKA Hansen/NGUYEN /[id number] signed by Ata White MD at 09/26/2018 6:17 PM PDTSan Alfreda ray MD - 09/19/2018 5:44 PM PDTAssociated Order(s): OPERATION RECORDProcedure(s ): OPERATION RECORDDate of Procedure: 09/19/18 Attending Surgeon: Alfreda Mccollum MD Planisher(s): Diana Richey MD, Dillan Bridges MD Preoperative Diagnoses: 1. nonviable lastissimus dorsi free tissue flap Postoperative Diagnoses: 1. same Procedure: 1. Wound wash out and removal of cranial hardware 2. Debridement of wound Estimated Blood Loss: 50 mL. Fluids: Please see anesthesia encounter. Specimens: epidural phlegmon sent for culture Complications: None. Drains: LAZARA drain Destination: Stable to PACU to cooper Findings: Necrotic areas of previous lastissimus dorsi free tissue flap Indication For Procedure: Indications For Procedure: Gloria Adhikari is a 68 y.o . female evaluated by the neurosurgery team for concerns for non-viable scalp flap with pote ntial for underlying infection of mesh cranioplasty. She has a complicated history following surgical management of ruptured anterior communicating artery aneurysm and hydrocephalus wh ich occurred in 2007, who has required multiple surgical procedures for wound infection, exp lant and re-implantation of cranioplasty, and eventual plastic surgery consultation. She u nderwent synthes cranioplasty (05/08/18) with rotational flap performed by Dr Ata White. She r epresented with wound dehiscence managed with over sewing of the wound by ENT (05/14-05/17). Unfortunately, Ms Adhikari again presented for medical attention after her son noticed recur rent skin opening with cranioplasty exposure. She was admitted to neurosurgery service on and underwent explant of her cranioplasty and wound closure by ENT the following day. S he was discharged to home on 07/13. Ms Adhikari's surgical culture was notable for growth of staph epidermidis. She underwent wound debridement and right mesh cranioplasty on 08/03. She recovered well, but later was noted to have foul odor from her wound at the end of July, an d she was re-admitted by the ENT service on 09/14 for non-viable flap and concern for underly ing infection. Therefore, she was indicated for the above procedure. The indications, risks, benefits and alternatives for the procedure were discussed. The patient voiced understandi ng, and a signed consent form was placed in the patient's chart. Description Of Procedure: The patient was first identified in the preoperative area, and t bri brought to the operative room on a [facility]. General anesthesia was induced by the neuroanesthesia team. The eyes were taped shut to prevent corneal abrasion. The patient was placed in the supine position, and all pressure points were carefully padded. The head was secured in the horseshoe barrel filler head. The hair over the area was clipped. The area was prepped and draped in the usual standard sterile fashion. The planned incision was infiltra eli with local anesthetic containing epinephrine. The patient was administered prophylactic antibiotics. At this time, time-out was performed, and all team members were in agreement regarding the appropriate patient, the appropriate procedure and the appropriate site, with the appropriate imaging and equipment available. The ENT team performed debridement of her necrotic free tissue flap and exposed the existin g cranial mesh plate. At this point, the neurosurgery team removed the screws from the crani al mesh and lifted the plate out. We irrigated copiously with saline containing bacitracin, and debrided the phlegmon overlying the dural substiture using penfield 1 and penfield 3. We also used sharp excision with tenotomy scissors to remove any necrotic tissue we saw. When we felt the field was cleaned of phlegmon and the plate had been removed in its entirety, we turned the patient back over to the ENT team. The patient was taken out of the horseshoe headholder. The patient was then turned over to the anesthesiology team, and the patient was extubated. The patient was then transferred t o the PACU for further recovery. All sponge, needle, and instrument counts were correct at the end of this portion of the pr ocedure x2. Dillan Bridges MD Neurosurgery, PGY-2 Pager [phone] I certify that I was present for and participated in the critical parts of the procedure. I further certify that I was the principal neurosurgeon for this procedure. Alfreda Mccollum MD Clinical Instructor & Skull Base Fellow Department of Neurological Surgery [facility], [place] documented in this encounter Consult Notes Arun Anderson, PharmD - 09/18/2018 11:52 AM PDT Pharmacist Managed Vancomycin: Monitoring Note Assessment/Plan: - Continue with current regimen of 500 mg IV every 12 hours. - Pharmacist will order a trough level in 3-5 days or sooner if renal function declines sig nificantly - Monitor serum creatinine, BUN and urine output daily until stable regimen determined. Can decrease serum creatinine and BUN monitoring to weekly once on stable regimen. Please page clinical pharmacist [phone]) or call central inpatient pharmacy ([phone]) with q uestions. Subjective/Objective: Indication: Cranial flap and underlying mesh infection Therapy start date: 09/14/18 Anticipated duration: TBD Goal trough: ~15 mg/L Current Level: 14.7 mg/L was drawn approximately 11.5 hours after the last dose. Urine output: not strictly measured in the past 24 hours Renal function: stable , current SCr 0.86 (Baseline SCr 0.7-0.9) Actual body weight: Weight: 49 kg (108 lb) (09/13/182036) Pertinent cultures/sensitivities: CULTURE, BLOOD BACTI & YEAST [facility] [[id number]] (Abnormal) [facility] C[facility] Collected: 09/14/1824 Lab Status: Edited Result - FINAL Specimen: Blood from Peripheral Updated: 09/15/18 0502 CULTURE RESULT [facility] Staphylococcus epidermidisPanic Ref Range: GRAM STAIN Gram Positive BacilliPanic [facility] CORE [facility] Gram positive cocci in clustersPanic Ref Range: Comment: This is an appended report. These results have been appended to a previously yovanny l verified report. Narrative: Growth in Aerobic Bottle - [facility] only. Growth in Anaerobic Bottle - [facility] and [facility]. Organism Identified by Molecular ID, to be confirmed by culture. BLOOD CULTURE WORKUP [[id number]] (Abnormal) LAB Collected: 09/14/1824 Lab Status: Final result Specimen: Blood from Peripheral Updated: 09/17/18 1105 CULTURE RESULT LAB Bacillus species, not B anthracisAbnormal Ref Range: [facility] Coagulase negative staphylococcus speciesAbnormal Ref Range: Narrative: Culture Report: Bacillus species, not B. anthracis Coagulase negative Staphylococcus species Growth in Aerobic bottle Growth in Anaerobic bottle Thank you for the consult, Arun Anderson PharmD, [facility] Pager [phone] Courtney Kevin R Ph - 09/16/2018 12:19 PM PDT Pharmacist Managed Vancomycin: Monitoring Note Indication: soft tissue infection Goal trough: 10-15 Level: 16 mg/L was drawn appropriately, approximately 11.5 hours after the last dose. CrCl cannot be calculated (Unknown ideal weight.). Renal function: creatinine today 0.78 which is less than yesterday at 0.85 Plan: Decrease from 750 mg IV every 12 hours to 500 mg IV every 12 hours and start this todse ton ight at 22:00. Repeat level: Pharmacist will order another trough level prior to fourth dose. Please page clinical pharmacist [phone]) or call central inpatient pharmacy ([phone]) with qu estions. Actual body weight: Weight: 49 kg (108 lb) (09/13/182036) Labs: CREATININE PLASMA (LAB) (mg/dL) Date Value 09/16/2018 0.78 09/15/2018 0.85 09/13/2018 0.72 BUN, PLASMA (LAB) (mg/dL) Date Value 09/16/2018 15 09/15/2018 15 09/13/2018 22 (H) WHITE CELL COUNT (K/cu mm) Date Value 09/15/2018 7.62 09/13/2018 8.76 VANCOMYCIN, TROUGH (ug/mL) Date/Time Value 09/16/2018 0924 16.0 Pertinent cultures/sensitivities: CULTURE, BLOOD BACTI & YEAST [facility] [[id number]] (Abnormal) [facility] Collected: 09/14/18 0025 Lab Status: Edited Result - FINAL Specimen: Blood from Peripheral Updated: 09/15/18 0502 CULTURE RESULT [facility] Staphylococcus epidermidisPanic Ref Range: GRAM STAIN Gram Positive BacilliPanic [facility] Gram positive cocci in clustersPanic Ref Range: Comment: This is an appended report. These results have been appended to a previously yovanny l verified report. Narrative: Growth in Aerobic Bottle - [facility] only. Growth in Anaerobic Bottle - [facility] and [facility]. Organism Identified by Molecular ID, to be confirmed by culture. Thank you for consult, Courtney Mcmullen [facility]. Pager [phone] Julianna Alexander - 0 09/14/2018 11:28 AM PDT Pharmacist Managed Vancomycin: Initial Note Indication: soft tissue infection Goal trough: 10-15 CrCl: 50-60 ml/min Urine output: not collected in the ED Renal function: stable Assessment/Plan: - Start vancomycin 750 mg IV every 12 hours - Pharmacist will order trough level prior to fourth dose. Please page clinical pharmacist [phone]) or call central inpatient pharmacy ([phone]) with qu estions. Actual body weight: Weight: 49 kg (108 lb) (09/13/182036) Labs: CREATININE PLASMA (LAB) (mg/dL) Date Value 09/13/2018 0.72 BUN, PLASMA (LAB) (mg/dL) Date Value 09/13/2018 22 (H) WHITE CELL COUNT (K/cu mm) Date Value 09/13/2018 8.76 Pertinent cultures/sensitivities: 09/14/18 BCx x1 pending 07/11/18 Swab from Brain, Staph Epi Oxacillin and Cefaz Resistant 12/05/17 Tissue from Head, MSSA 12/05/17 Abscess from Head, MSSA 12/05/17 Catheter tip from Head, MSSA Thank you for the consult, Julianna Zambrano PharmD Candidate 2019 P M Carlos Eduardo Alfonso MD - 09/14/2018 12:21 AM PDTAssociated Order(s): IP CONSULT TO OTOLARYNGOLO GY OTOLARYNGOLOGY/HEAD & NECK SURGERY CONSULT H&P Date: 09/14/2018 Requesting Physician: Meeta Donnelly MD Consult Attending: Carlos Eduardo Maher MD Chief Complaint: foul smell from flap HPI: Gloria Adhikari is a 68yo female with a history of remote SAH 2/2 ruptured A- comm aneurysm with 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 She developed an infection of her cranioplasty with ass ociated epidural abscess requiring explantation in 12/08 and underwent a repeat synthetic cr anioplasty with the Neurosurgery team 05/09, at which time Dr White/Tesha performed a rotatio n advancement scalp flap for coverage of new implant. This was further complicated by recurr ent exposed cranioplasty requiring a take back to the OR on 07/11 for removal of cranioplasty . She is most recently s/p re-placement of right mesh cranioplasty, wound debridement and re construction with a latissimus dorsi free tissue flap on 08/03/18. The patient states she has been noticing changes in the appearance and smell of her flap si te since last , when she noticed it to be black and foul smelling. There are notes i n her chart, however, which date the initial concern by her youth care professional to 08/19/18. She repor ts intermittent right eyelid droop and lip discoordination since discharge but yesterday mellissa yusuf was found to have an acute left sided facial droop so her family brought her to the [facility] emergency department. There, she was noted to have purulent drainage from around her fl ap per report. A CT scan of her head was done which showed "infection around the flap" and a "mini stroke". She reports no workup of her stroke aside from the head CT. She has no remna nt motor deficits. She denies fevers, chills, headache, changes in her vision, palpitations, chest pain. She r eports she continues to smoke. Past Medical History Diagnosis Date GERD (gastroesophageal reflux disease) Essential hypertension Tobacco dependence COPD on oxygen at night Otitis media recent abx preadmit Chronic pain Subarachnoid hemorrhage due to ruptured aneurysm (HCC) 2007 Goiter CAD in qagan tayagungin artery s/p NSTEMI 12/27/2014; status post stent placement in the mid LAD Abnormal LFTs (liver function tests) MRSA (methicillin resistant staph aureus) culture positive post cariotomy for SAH Hemorrhagic stroke (HCC) 2007 aneurysm PONV (postoperative nausea and vomiting) Past Surgical History Procedure Date Partial thyroidectomy Hysterectomy Bladder suspension 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 Driller And Reamer shunt Tympanoplasty 1987 Lumpectomy of left breast 1979 Coronary stent placement 12/28/2014 status post stent placement in the mid LAD Removal of vp information technology shunt Cholecystectomy Social History Tobacco Use Smoking status: Current Every Day Smoker Packs/day: 1.00 Years: 50.00 Pack years: 50.00 Types: Cigarettes Smokeless tobacco: Never Used Tobacco comment: Substance Use Topics Alcohol use: No Alcohol/week: 0.0 oz Drug use: No Family History Problem Relation Additional Family History Mother dementia Cancer Father brain Cancer Brother lung Allergies Allergen Reactions Bastrop Tar Hives Betadine [Povidone-Iodine (With Soap)] Rash [...] Indications: Pain atorvastatin 80 mg oral tablet Take 80 [...] Negative Ears, Nose and Throat: Per HPI. Respiratory: Negative Musculoskeletal: Negative Cardiovascular: Negative Gastrointestinal: Negative Genitourinary: Negative Neurologic: Per HPI Skin: Negative Psychological: Negative Heme/Lymphatic: Negative Endocrine: Negative Allergic: Negative Physical Exam: Last Vitals: BP 125/65 | Pulse (!) 93 | Temp 36.7 C (98.1 F) | Resp 16 | Ht 1.499 m (4' 11") | Wt 49 kg (108 lb) | SpO2 99% | BMI 21.81 kg/m | BSA 1.43 m General: well developed, well nourished, NAD Face: right sided latissimus dorsi flap covered with thick plaque of necrotic tissue, later al aspect of flap visualized and appears soft and warm, unable to appreciate any dehiscence in her incisions or purulent drainage from under the flap, no surrounding erythema, mildly f oul smelling Eyes: pupils round, equal, and reactive to light, EOMI, sclera white, conjunctiva pink, vis ion grossly intact Neuro: CN V1-3 sensation intact bilaterally, CN VII - diminished right brow raise but otherwise intact and symmetric in all branches tongue midline, shoulder shrug intact bilaterally 5/5 strength BUE/BLE SILT throughout Ears: hearing intact to conversational voice Nose: normal external appearance, nares patent, septum midline, mucosa pink and moist Oral Cavity: dentition fair, FOM soft, mucosa pink and moist without lesions Oropharynx: soft palate and uvula midline, tonsillar pillars normal, posterior pharyngeal w all normal Neck: no masses, no LAD, no thyromegaly Cardiovascular: regular rate Respiratory: breathing comfortably on room air, no stridor Studies Reviewed: Labs: Lab Results Component Value Date NA 137 09/13/2018 K 4.7 09/13/2018 CL 104 09/13/2018 BICARB 27 09/13/2018 BUN 22 09/13/2018 CR 0.72 09/13/2018 GLU 97 09/13/2018 CA 8.8 09/13/2018 ANIONGAP 6 09/13/2018 ANIONALBCOR 7 09/13/2018 Lab Results Component Value Date WBC 8.76 09/13/2018 HB 12.4 09/13/2018 HCT 38.3 09/13/2018 PLT 348 09/13/2018 MCV 95.5 09/13/2018 RDW 48.4 09/13/2018 Imaging: CT Head - OSH Unable to view images or access read. 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 Post-cranioplasty course c/b exposure and subsequent infecti on of her cranioplasty ultimately requiring explantation. She is most recently s/p re-placem ent of right mesh cranioplasty, wound debridement and reconstruction with a latissimus dorsi free tissue flap on 08/03/18. She presents with approximately one week of foul smell and malinda ckened appearance of the area of her free flap, as well as a recent TIA with left sided faci al droop. The visualized temporal portion of the flap itself appears viable as far as I can detect, however there is extensive necrotic tissue medially with c/f necrotic flap underlyin g the dark crust. There are no clinical signs of infection. Recommend admission to ED Obs ov ernight for monitoring with preliminary plan for aggressive wound care in the morning to lida ride skin graft layer and formally assess the flap. Recommendations: - admit to ED Obs - please keep NPO after MN for any possible intervention in AM - no need for antibiotics at this time - please obtain OSH CT Head imaging and read - please consult NSG for evaluation of cranioplasty - consider further work up for cause of TIA, could consult Neurology vs. Internal Medicine for this - remainder of care per ED team ENT will continue to follow along. The patient was discussed with Dr. Maher, who is the attending of record for this encounter. Mel Shelton MD Resident Physician, PGY2 Otolaryngology, H&N Surgery Pager [phone] This patient's history and examination was discussed with me. I agree with the plan of care that has been recommended. Carlos Eduardo Maher MD Technology Applications Teacher Head and Neck Surgical Oncology Microvascular Reconstructive Surgery [facility] documented in this encount er ED Notes Nancy Scales RN - 09/14/2018 5:15 PM PDTReport to RN on 10K. Patient to [facility] via stre tcher with transport and all personal belongings. Nancy Jenkins RN - 09/14/2018 3:15 PM PDTPt returned to [facility] t Nancy Jenkins RN - 09/14/2018 2:[address] via stretcher with transport Breanna Sol RN - 09/14/2018 2:16 PM PDTIV therapy at bedside. Nancy Reese RN - 09/14/2018 2:05 PM PDTI have assumed care of this patient. DAYNA James, student nurse. Patient resting, bed low and locked, call light in reach.Electronic ally signed by Nancy Scales RN at 09/14/2018 2:07 PM PDTBreanna Mnedez RN - 019 2:04 PM PDTI have relinquished care of this patient. reanna Mendez RN - 09/14/2018 1:[address] t o have IV access, 20 G in FA or AC. Unable to obtain IV therapy to be paged. reanna Mendez RN - 09/14/2018 11:33 AM PDTPt appears to be resting comfortably. Appears NAD. RN TCTM. Denies requests or c oncerns at this time. P DTTylerRemington NP - 09/14/2018 10:44 AM PDTFormatting of this note might be different f rom the original. ED OBSERVATION UNIT DISCHARGE SUMMARY & INPATIENT ADMISSION TO ENT Date of ED Obs Admission: 09/13/2018 Date of ED Obs Discharge: 09/14/2018 Primary Care Provider: Mary Vazquez PA-C ED Obs Provider: Remington Dexter NP Chief Complaint: Post Op Concern Final Diagnoses: L76.82 Postoperative surgical complication involving skin associated with dermatologic proc edure, unspecified complication Brief HPI: Gloria Adhikari is a 68 y.o. 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 She develope d an infection of her cranioplasty with associated epidural abscess requiring explantation i n 12/08 and underwent a repeat synthetic cranioplasty with the Neurosurgery team 05/09, at [facility] time Dr White/Tesha performed a rotation advancement scalp flap for coverage of new impl ant. This wasfurther complicated by recurrentexposed cranioplasty requiring a take back to the OR on 07/11 for removal of cranioplasty.She is most recently s/p re-placement of rig ht mesh cranioplasty, wound debridement and reconstruction with a latissimus dorsi free tiss ue flap on 08/03/18." Per Angel See PA-C: "Gloria Adhikari was noted to have Left side facial droopin g at home and went to local ED, CT head that was reportedly negative. At ED it was noted she had foul smelling discharge from wound, contacted her [facility] ENT and referred to [facility] ED. No records of ED visit on 09/12, reportedly CT head neg, facial droop resolved and has anurag l neuro exam now, ?TIA, unclear what was done at OSH, have requested records. She denies any fevers/chills, POSADAS, weakness, numbness/tingling." ED Acute Course: ED Triage Vitals BP Temp Heart Rate Pulse - Plethysmograph Resp SpO2 09/13/18203209/13/18203209/13/18203209/14/18 0031 09/13/18203609/13/182032 125/65 36.7 C (!) 93 88 pulses/min 16 99 % "Upon presentation to the Acute ED, her vital signs were normal. her exam revealed right sided latissimus dorsi flap covered with thick plaque of necrotic tissue, lateral aspect of flap visualized and appears soft and warm, unable to appreciate any dehiscence in her incisi ons or purulent drainage from under the flap, no surrounding erythema A work up was initiated which included CBC WNL, CMP WNL, lactate 1.4. Imaging from OSH ([facility] in [place]) being pushed ENT evaluated and await final recs Once stable, the patient was transferred to the Emergency Department Observation Unit with a diagnosis of possible surgical wound infection for continuation of care including observat ion."-Angel See PA-C Observation Unit Course: While in ED Obs, Gloria Adhikari was hemodynamically stable. Today patient was kamille luated by ENT service at bedside. Wound appeared necrotic, and ENT service requested CT head WWO, IV antibiotics (Vancomycin and Zosyn), NPO status, and later asked that patient be adm itted to ENT with plans for add on surgery. Spoke with admitting service on 09/14/18 at 10:4 7 AM. Patient is now in boarding status. Consults: ENT Pertinent Exam Findings at Discharge: General appearance: Adult female resting in bed appearing well nourished in NAD. HEENT: Right sided latissimus dorsi flap covered with thick plaque of necrotic tissue now s /p some debridement at bedside, lateral aspect of flap visualized and appears soft and warm, unable to appreciate any dehiscence in her incisions or purulent drainage from under the fl ap, no surrounding erythema, foul smelling. Now wrapped in gauze, draining serosanguinous. CV: RRR, without m/r/g. Resp: No respiratory distress. Breath sounds equal bilaterally without w/r/r GI: Abdomen ND/NT, no rebound, no guarding, NABS x 4. No HSM. Extrem: Warm and well perfused, no deformities. Peripheral Vascular: No dependent edema. 2+ Posterior Tibial pulses bilaterally. Neuro: A&O x 3, CN II-XII intact grossly. Psych: Appropriate affect and insight. Skin: Appropriate color, warm, dry. # Infection of right cranioplasty site -Admit to ENT -CT head WWO -IV Vancomycin and Zosyn -NPO for surgery, add on today # R facial weakness, resolved # Concern for TIA Per son patient with left side facial droop on 09/12, which had since resolved. Also known t o have some persistent right facial droop associated with previous surgeries. -Consider neurology consult for stroke work up during inpatient stay -Consider resuming aspirin after surgery Remington Dexter NP [facility] EMERGENCY DEPARTMENT [address] [place] [address] [id number] signed by eRmington Dexter NP at 09/14/2018 10:55 AM Breanna Sol RN - 09/14/2018 10:34 AM PDTPlease call Home Health when pt is discharging Kieran Sol RN - 09/14/2018 10:20 AM PDTENT at bedside, consent scanned on unit. Hard copy sent wit h ENT provider. reanna Cobian RN - 09/14/2018 9:50 AM PDTPt aware NPO. Breanna Sol RN - 09/14/2018 9:45 AM PDTPer pt O K to speak with daughter, tx into room. Electronically signed by Breanna Mendez RN at 2:14 PM Breanna Sol RN - 09/14/2018 8:00 AM PDTBandage applied by ENT, adrian ball and xeroform. Lisa Vargas RN - 09/14/2018 7:37 AM PDTENT at bedside Lisa English RN - 09/14/2018 7:36 AM PDTI have r elinquished care of this patient. SBAR to Geovanni HUERTAS and Jacob (vice president of nursing)Electronically si gned by Lisa Cordova RN at 09/14/2018 7:36 AM Lisa English RN - 09/14/2018 2:4 9 AM PDTED Nursing Handoff Report Primary focus of stay: possible flap infx, TIA Pertinent physical findings (Focused assessment, Pain/discomfort, Neuro, Cards/tele and Res p assessment): PMH of CAD, NSTEMI s/p stent, HTN, COPD, SAH from ACOM aneurysm rupture, s/p clipping who then had multiple cranioplasty surgeries, now s/p flap procedure done 08/06/18 r eversing a cranioplasty per ENT Patient-specific pain target: 0 Patient concern (Primary reason for coming to the ED): L facial droop, possible flap infx Psych/social assessment & interventions: No pertinent issues noted. No interventions needed . Safety risks: no safety risks noted Isolation status None Legal status: Voluntary Medical/psychosocial stability: Moderately Stable Transition concerns as related to stability: none Alarm parameter changes: none Care R/T comfort, hygiene, education (i.e., activity, environment, toileting, skin, ADLs, e tc.): denies pain, independent with ADLs Orders to follow up on: NPO since 214 on 09/14 Anticipated/pending procedures or disposition: ENT to eval in am Education provided to the patient/family: NPO status, orientation to room, medications, pl an of care Lisa English RN - 09/14/2018 1:25 AM PDTPt has limited time to eat before NPO status. Deferring exam unti l after pt eats, currently in NAD, respirations equal and unlabored, appears to be at neurol ogical baseline. [place] sandwich provided. Lisa English RN - 09/14/2018 1:17 AM PDTProvider at bedsideElec tronically signed by Lisa Cordova RN at 09/14/2018 1:17 AM Lisa English RN - 1:05 AM PDTBed: 5B4 Expected date: Expected time: Means of arrival: Comments: Ray S Lisa English RN - 09/14/2018 1:03 AM PDTI have assumed care of this patient. TANGAR from Idalmis TAMEZ lectronically signed by Lisa Cordova RN at 09/14/2018 1:04 AM Idalmis Jerome RN - 08/22 12:54 AM PDTReport to 6Obs, pt awaits transport to floor. Meeta Mccann MD - 09/14/2018 12:41 AM PDTFormatt ing of this note might be different from the original. ED Individual Provider Note, Meeta Donnelly MD: HPI 68 y.o. female with a PMH of CAD, NSTEMI s/p stenet, HTN, COPD, SAH from ACOM aneurysm rupture, s/p clipping who then had multiple cranioplasty surgeries, now s/p flap procedure d one 08/06/18 reversing a cranioplasty per ENT who presented to the ED for evaluation of possi ble wound infection. The patient was seen at an ED in [place] yesterday for symptoms o f transient left facial droop and diagnosed with a TIA. A CT scan was performed which showed "infection around the flap." On that ED evaluation, the ED provider was concerned that the flap was foul smelling and may be infected. The patient was subsequently prescribed a course of antibiotics (Clindamycin), however, the patient never had the prescription filled. She d rove to [place] today for ENT evaluation as the ED provider in [place] urged her to do so . On ED evaluation today, the patient reports no significant pain or drainage at or around t he cranioplasty site. She denies fevers, chills, nausea, vomiting, POSADAS, CP, SOB, cough. The f lap has become crusted and dark colored since the procedure and the patient has noticed a fo ul smell from the area since last . PCP: Mary Vazquez PA-C Patient Active Problem List Diagnosis Date Noted Postoperative anemia due to acute blood loss 08/05/2018 History of cranioplasty 07/10/2018 Wound dehiscence 07/10/2018 History of chronic respiratory failure 05/26/2018 Ischemic [...] weeks. Continuous tobacco abuse Coronary arteriosclerosis in qagan t[place] artery 03/06/2015 History of non-ST elevation myocardial [...] ruptured aneurysm (HCC) 2007 Goiter CAD in [place] artery s/p NSTEMI 12/27/2014; status post stent placement in the mid LAD Abnormal LFTs (liver function tests) MRSA (methicillin resistant staph aureus) culture positive post cariotomy for SAH Hemorrhagic stroke (HCC) 2007 aneurysm PONV (postoperative nausea and vomiting) Past Surgical History Procedure Date Partial thyroidectomy Hysterectomy Bladder suspension 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 Driller And Reamer shunt Tympanoplasty 1987 Lumpectomy of left breast 1979 Coronary stent placement 12/28/2014 status post stent placement in the mid LAD Removal of vp information technology shunt Cholecystectomy Medications Prior to Admission Medications Prescriptions Last Dose Informant Patient Reported? Taking? acetaminophen 325 mg oral tablet Not Taking at Unknown time No No Sig: Take 1-2 tablets by mouth every four hours as needed. Indications: Pain atorvastatin 80 mg oral tablet 09/13/2018 at Unknown time Yes Yes Sig: Take 80 mg by mouth once daily. ipratropium-albuterol 0.5 mg-3 mg(2.5 mg base)/3 mL inhalation solution for nebulization Wi thin last 30 days at Unknown time Yes Yes Sig: Inhale 3 mL two times daily. metoprolol succinate 50 mg oral tablet extended release 24 hr 09/13/2018 at Unknown time Ye s Yes Sig: Take 50 mg by mouth once daily. nicotine 21 mg/24 hr transdermal patch 24 hour Within last 7 days at Unknown time No Yes Sig: Apply 1 patch to skin once daily. polyethylene glycol 17 gram oral powder in packet Not Taking at Unknown time No No Sig: Mix 1 packet and take orally three times daily as needed (1st line - for no BM for 2 d ays). Indications: constipation spironolactone 25 mg oral tablet 09/13/2018 at Unknown time Yes Yes Sig: Take 25 mg by mouth once daily. Facility-Administered Medications: None Allergies Allergen Reactions [place]rop Tar Hives Betadine [Povidone-Iodine (With Soap)] Rash [...] Heart Rate Pulse - Plethysmograph Resp SpO2 09/13/18203209/13/18203209/13/18203209/14/18 0031 09/13/187 09/13/182032 125/65 36.7 C (!) 93 88 pulses/min 16 99 % Physical Exam Constitutional: No distress. HENT: Mouth/Throat: Oropharynx is clear and moist. No oropharyngeal exudate. See skin exam Eyes: Pupils are equal, round, and reactive to light. Conjunctivae and EOM are normal. Righ t eye exhibits no discharge. Left eye exhibits no discharge. Neck: Normal range of motion. Neck supple. Cardiovascular: Normal rate and normal heart sounds. Pulmonary/Chest: Effort normal and breath sounds normal. No respiratory distress. Abdominal: Soft. She exhibits no distension. There is no tenderness. Neurological: She is alert. No cranial nerve deficit. No facial droop Skin: She is not diaphoretic. right sided temporal scalp flap covered with thick necrotic appearing tissue. No purulent d rainage, no significant tenderness, no surrounding erythema. Slightly foul smelling. Psychiatric: She has a normal mood and affect. Her behavior is normal. Judgment and thought content normal. Lab Results Results for orders placed or performed during the hospital encounter of 09/13/18 COMPLETE METABOLIC SET (NA,K,CL,CO2,BUN,CREAT,GLUC,CA,AST,ALT,BILI TOTAL,ALK PHOS,ALB,PROT TOTAL) Result Value Ref Range GLUCOSE, PLASMA (LAB) 97 70 - 99 mg/dL BUN, PLASMA (LAB) 22 (H) 6 - 20 mg/dL CREATININE PLASMA (LAB) 0.72 0.60 - 1.10 mg/dL EGFR - GUAMANIAN >60 >60 mL/min EGFR NON -GUAMANIAN >60 >60 mL/min SODIUM, PLASMA (LAB) 137 136 - 145 mmol/L POTASSIUM, PLASMA (LAB) 4.7 3.4 - 5.0 mmol/L CHLORIDE, PLASMA (LAB) 104 97 - 108 mmol/L TOTAL CO2, PLASMA (LAB) 27 21 - 32 mmol/L CALCIUM, PLASMA (LAB) 8.8 8.6 - 10.2 mg/dL CALCIUM(ALB CORRECTED) 9.3 8.6 - 10.2 mg/dL BILIRUBIN TOTAL 0.4 0.3 - 1.2 mg/dL TOTAL PROTEIN, PLASMA (LAB) 7.8 6.4 - 8.2 g/dL ALBUMIN, PLASMA (LAB) 3.4 (L) 3.5 - 4.7 g/dL ALK PHOS 165 (H) 53 - 141 U/L AST(SGOT) 32 <=41 U/L ALT (SGPT) 25 <=60 U/L ANION GAP 6 4 - 11 mmol/L ANION GAP(ALB CORRECTED) 7 4 - 11 mmol/L POTASSIUM CMNT Hemo AST NT Hemo BLOOD BANK HOLD TUBE - DON T PROCESS Result Value Ref Range SPECIMEN COLLECTED, HELD Sample received with adeq label/volume to process BG-LAC,POC ISTAT Result Value Ref Range TOTAL CO2 DEON, POC 31 (H) 23 - 29 mmol/L PH VENOUS, POC 7.42 7.35 - 7.45 PCO2 VENOUS, POC 46 35 - 50 mmHg HCO3 VENOUS, POC 30 (H) 22 - 28 mmol/L PO2 VENOUS, POC 41 30 - 55 mmHg O2 SAT VENOUS, POC 77 95 - 98 % LACTATE VENOUS, POC 1.4 0.5 - 2.0 mmol/L PAT TEMP VENOUS,POC 98.2 BASE EXCESS DEON, POC 5.0 -2 - 3 mmol/L CBC AND AUTO DIFF Result Value Ref Range WHITE CELL COUNT 8.76 3.50 - 10.80 K/cu mm RED CELL COUNT 4.01 4.00 - 5.20 M/cu mm HEMOGLOBIN 12.4 12.0 - 16.0 g/dL HEMATOCRIT 38.3 36.0 - 46.0 % MCV 95.5 80.0 - 100.0 fL MCHC 32.4 32.0 - 36.0 g/dL RDW SD 48.4 (H) 35.1 - 46.3 fL PLATELET COUNT 348 150 - 400 K/cu mm MPV 9.8 9.7 - 12.3 fL NRBC% 0.0 0.0 - 0.3 % NRBC# 0.00 0.00 - 0.02 K/cu mm NEUTROPHIL % 65.8 50.0 - 70.0 % LYMPHOCYTE % 18.7 18.0 - 42.0 % MONOCYTE % 10.4 (H) 3.5 - 9.0 % EOS % 4.2 (H) 1.0 - 3.0 % BASO % 0.6 0.0 - 2.0 % IG% 0.3 0.0 - 1.0 % NEUTROPHIL # 5.76 1.80 - 7.70 K/cu mm LYMPHOCYTE # 1.64 1.00 - 4.80 K/cu mm MONOCYTE # 0.91 (H) 0.10 - 0.90 K/cu mm EOS # 0.37 0.00 - 0.50 K/cu mm BASO # 0.05 0.00 - 0.10 K/cu mm IG# 0.03 0.00 - 0.10 K/cu mm Imaging Results (last 24 hours) No results found. ED COURSE AND MEDICAL DECISION MAKIN y.o. female hx of multiple cranioplasty surgeries, now s/p flap procedure done 08/06/18 r eversing a cranioplasty per ENT who presented to the ED for evaluation of possible wound inf ection. On ED evaluation, patient is alert and nontoxic appearing with normal vitals. Right temporal scalp flap appears necrotic and mildly foul-smelling without tenderness, erythema, drainage or palpable fluctuance. Labs notable for normal CMP and CBC. Outside imaging reques eli to be pushed from [facility]. ENT evaluated the patient in the ED, requested the patient be admitted to ED obs for close monitoring and re-evaluation with their team in the am. This was discussed with the patient who agrees with this plan. ENT requested that no an tibiotics be given for now. I discussed this with the obs provider who agreed to the admissi on. Obs provider agreed to discuss with Neurosurgery, who was also involved in the patient's flap reconstruction. Outside records were also requested and provided to the obs provider. The patient remained HD stable during her remaining time in the ED. She was subsequently tra nsferred to ED Obs in stable condition. ED Medication Administration from 09/13/20182022 to 09/14/2018833 Date/Time Order Dose Route Action 09/14/2018 014 atorvastatin (LIPITOR) tablet 80 mg 80 mg oral Given 09/14/2018147 metoprolol succinate (TOPROL-XL) tablet 50 mg 50 mg oral Given 09/14/2018147 spironolactone (ALDACTONE) tablet 25 mg 25 mg oral Given Admit Requested: Sep 13, 2018 11:40 PM IMPRESSION: L76.82 Postoperative surgical complication involving skin associated with dermatologic proc edure, unspecified complication PLAN, DISPOSITION AND FOLLOW-UP: New Prescriptions No medications on file In this note documentation noting the patient's drug/alcohol use may be incorrect. Review p atient's history. HIM Admin 04/20/19 0849 Idalmis Jerome RN - 11:35 PM PDTMD @ bedside Idalmis Jerome RN - 09/13/2018 11:11 PM PDTENT called RN rq ED put in ENT consult or MD Andrzej venegas aware and placing order. 19 11:11 PM Ayush Sinclair RN - 09/13/2018 9:00 PM PDTLabs and one set of cultures ob tained via PIV placement using aseptic technique. Court Crier attempted to obtain second set of b lood cultures via straight stick to the left hand. During draw pt pulled her hand away unexp ectedly almost causing this expert medical writer to stick himself with the needle and pt bled on the floor . Bandage + pressure placed on IV site and blood drops cleaned. Defer second set of BC to charles wright in the visit. ee Ayush salguero RN - 09/13/2018 8:33 PM PDTPt had a flap procedure done 08/06/18 reversing a cranioplasty. Yesterday pt went to [place] [facility] after her son noticed some left facial adrianna oping. Pt was worked up for stroke like symptoms which were negative. At the ER the staff no ticed the pt's lead wound had a foul odor to it and did not appear to be healing WNL. They c ontacted her ENT who performed her graft Dr. White and he wanted patient to be seen in [facility]. Pr drove from [facility] today. Respirations regular and unlabored, pt appears to be in NA D. documented in this encounter Miscellaneous Notes Plan of Care - Rula Alejandro RN - 09/22/2018 11:27 AM PDTNursing Discharge Note Discharge Date: 09/22/2018 Additional Discharge Information: Pt discharged home into care of family. AVS reviewed with all, including hygiene and activity instructions, how to obtain help in the event of compli cations, follow up plan, and next medication due times. Belongings accounted for except pt's slippers. Questions answered. Discharge Nurse: RULA ALEJANDRO RN andoff - Courtney Hankins RN - 09/22/2018 7:09 AM PDTNursing Handoff Patient Daily Goal: Go outside to 9th floor (09/17/18815) Patient Specific Preferences: prefers the oxymask vs Nasal Cannula (09/14/182038) [facility] IP NURSE HANDOFF: Nesbitt hospital course events: Admit: Admitted to [facility] wi th TIA, transferred to [facility] with infection and nonviable flap (09/13). 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 Infection, multiple flap revisions. July 2018 Wound debridement with Rt latissim us dorsi flap and replacement of mesh cranioplasty. 09/14: Necrotic flap debrided at bedside by ENT 09/19: Scalp rotational flap done in OR SAFETY Patient/Family Target: Gloria will ambulate safely and incisions remain intact. Progress to Target: Improving As evidenced by: Gloria is steady on her feet and has been up ad cadence in room and hallway. COMFORT/ANXIETY/BEHAVIOR Patient/Family Target: Gloria will be allowed to rest overnight. Progress to Target: Improving As evidenced by: Gloria was observed to be asleep throughout the night after 0000 and did not call for any assistance. Denied any pain overnight and said she slept pretty well. HYGIENE/INFECTION Patient/Family Target: Gloria's surgical sites will remain free of infection Progress to Target: No Change As evidenced by: Gloria has been afebrile and there are no signs/symptoms of infection. Some drainage was OK/normal per MD. Continue monitoring for signs of dehiscence and additional drainage. Sutur ed xeroform still intact. Telfa and crani cap placed for pt comfort. LAZARA drain removed this am by ENT at bedside. NURSING ASSESSMENT & RECOMMENDATIONS FORWARD Nursing Assessment of Patient Stability Risk: Moderately stable Recommendations Forward: - Encourage pt to continue to ambulate TID. - Pt unable to get PICC due to (+) blood cultures. - Please take pt outside to 9th floor deck daily if possible - Monitor for signs of stroke. Pt had TIA at home and was admitted to [facility] b efore coming to [facility]. - Encourage increased po intake Barriers to discharge: She will discharge today back to [place]. andoff - Danni Hobson RN - 09/21/2018 11:33 PM PDTNursing Handoff Patient Daily Goal: Go outside to 9th floor (09/17/18815) Patient Specific Preferences: prefers the oxymask vs Nasal Cannula (09/14/182038) [facility] IP NURSE HANDOFF: Nesbitt hospital course events: Admit: Admitted to [facility] wi th TIA, transferred to [facility] with infection and nonviable flap (09/13). 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 Infection, multiple flap revisions. July 2018 Wound debridement with Rt latissim us dorsi flap and replacement of mesh cranioplasty. 09/14: Necrotic flap debrided at bedside by ENT 09/19: Scalp rotational flap done in OR SAFETY Patient/Family Target: Gloria will ambulate safely and incisions remain intact. Progress to Target: Improving As evidenced by: Gloria is steady on her feet and has been up ad cadence in room and hallway. HYGIENE/INFECTION Patient/Family Target: Gloria's surgical sites will remain free of infection Progress to Target: No Change As evidenced by: Gloria has been afebrile and there are no signs/symptoms of infection. Some drainage was OK/normal per MD. Continue monitoring for signs of dehiscence and additional drainage. Sutur ed xeroform still intact. Telfa and crani cap placed for pt comfort. NURSING ASSESSMENT & RECOMMENDATIONS FORWARD Nursing Assessment of Patient Stability Risk: Moderately stable Recommendations Forward: - Encourage pt to continue to ambulate TID. - Pt unable to get PICC due to (+) blood cultures. - Please take pt outside to 9th floor deck daily if possible - Monitor for signs of stroke. Pt had TIA at home and was admitted to [facility] b efore coming to [facility]. - Encourage increased po intake Barriers to discharge: She will discharge on Tuesday with her friends and her son will pick her up Tuesday from their house. andoff - Nneka Wesley RN - 09/21/2018 2:41 PM PDTNursing Handoff Patient Daily Goal: Go outside to 9th floor (09/17/18815) Patient Specific Preferences: prefers the oxymask vs Nasal Cannula (09/14/182038) [facility] IP NURSE HANDOFF: Nesbitt hospital course events: Admit: Admitted to [facility] wi th TIA, transferred to [facility] with infection and nonviable flap (09/13). 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 Infection, multiple flap revisions. July 2018 Wound debridement with Rt latissi mus dorsi flap and replacement of mesh cranioplasty. 09/14: Necrotic flap debrided at bedside by ENT 09/19: Scalp rotational flap done in OR SAFETY Patient/Family Target: Gloria will ambulate safely and incisions remain intact. Progress to Target: Improving As evidenced by: Gloria is steady on her feet and can be up ad cadence in her room, however SBA when walking i n the hallway. She stated 09/20 she felt very exhausted during her second lap on the unit. Progress to Target: Improving HYGIENE/INFECTION Patient/Family Target: Gloria's surgical sites will remain free of infection Progress to Target: No Change As evidenced by: Gloria has been afebrile and there are no signs/symptoms of infection. Some drainage was OK/normal per MD. Continue monitoring for signs of dehiscence and additional drainage. Sutur ed xeroform still intact Progress to Target: Improving NURSING ASSESSMENT & RECOMMENDATIONS FORWARD Nursing Assessment of Patient Stability Risk: Moderately stable Recommendations Forward: - SBA, - [address] - Pt unable to get PICC due to (+) blood cultures. - Please take pt outside to 9th floor deck daily if possible - Monitor for signs of stroke. Pt had TIA at home and was admitted to [facility] b efore coming to [facility]. - Encourage increased po intake Barriers to discharge: She will discharge on Tuesday with her friends and her son will pick her up Tuesday from their house. andoff - Courtney Hankins RN - 09/21/2018 6:44 AM PDTNursing Handoff Patient Daily Goal: Go outside to 9th floor (09/17/18 0816) Patient Specific Preferences: prefers the oxymask vs Nasal Cannula (09/14/182038) [facility] IP NURSE HANDOFF: Nesbitt hospital course events: Admit: Admitted to [facility] wi th TIA, transferred to [facility] with infection and nonviable flap (09/13). 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 Infection, multiple flap revisions. July 2018 Wound debridement with Rt latissi mus dorsi flap and replacement of mesh cranioplasty. 09/14: Necrotic flap debrided at bedside by ENT 09/19: Scalp rotational flap done in OR SAFETY Patient/Family Target: Gloria will ambulate safely and incisions remain intact. Progress to Target: Improving As evidenced by: Gloria is steady on her feet and can be up ad cadence in her room, however SBA when walking i n the hallway. She said earlier in the evening she felt very exhausted during her second lap on the unit. COMFORT/ANXIETY/BEHAVIOR Patient/Family Target: Gloria will be allowed to rest tonight and have care clustered. Q8 VS Progress to Target: Improving As evidenced by: Gloria fell asleep after midnight last night after VS/Assessment were done and was rounde d on but not woken up at all. She slept through the night and reported no pain this shift. HYGIENE/INFECTION Patient/Family Target: Gloria's surgical sites will remain free of infection Progress to Target: No Change As evidenced by: Gloria has been afebrile and there are no signs/symptoms of infection. Some drainage was OK/normal per MD. Continue monitoring for signs of dehiscence and additional drainage. Sutur ed xeroform still intact Progress to Target: Improving NURSING ASSESSMENT & RECOMMENDATIONS FORWARD Nursing Assessment of Patient Stability Risk: Moderately stable Recommendations Forward: - SBA, - [address] - Pt unable to get PICC due to (+) blood cultures. VAT did not want to put in a midline, s o ultrasound was used for a new IV in Lt arm. OK per pharmacy to run the Vanco and Zosyn to gether if needed. - Please take pt outside to 9th floor deck daily if possible - Monitor for signs of stroke. Pt had TIA at home and was admitted to [facility] b efore coming to [facility]. - Encourage increased po intake Barriers to discharge: Possible discharge Tuesday but son Augusto cannot pick pt up until morning. They both work and cannot get Tuesday off to come get her. Also, he would like u s to not go over discharge instructions until he is present. Pt has history of noncompliance and he would like to hear instructions. They would also like home health for wound care. UPDATE: Pt states she spoke to her son and she will discharge on Tuesday with her friends an d her son will pick her up Tuesday from their house. andoff - Nataliya Reilly R N - 09/20/2018 6:07 PM PDTAdmitted to [facility] with [facility], transferred to [facility] with infection and nonviable flap (09/13). 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 Infection, multiple flap revisions. July 2018 Wound debridement with Rt latissi mus dorsi flap and replacement of mesh cranioplasty. 09/14: Necrotic flap debrided at bedside by ENT 09/19: Scalp rotational flap done in OR Nursing Handoff Patient Daily Goal: Go outside to 9th floor (09/17/18815) Patient Specific Preferences: prefers the oxymask vs Nasal Cannula (09/14/182038) [facility] IP NURSE HANDOFF: NURSING ASSESSMENT & RECOMMENDATIONS FORWARD Nursing Assessment of Patient Stability Risk: Moderately stable Recommendations Forward: - incision care, - ambulating in hallway with sba - no pivs, now on po antibiotics Barriers to discharge: Probably tuesday lan of Care - Lizet Amor, PT - 09/20/2018 2:08 PM PDTFormatting of this note might be different from the alondra heena. Physical Therapy Evaluation [id number] GLORIA ADHIKARI [facility] Day: 7 Date of : 1950 Start of care: 09/20/2018 Referring/Attending Practitioner: Ata White MD Primary/Referral Diagnosis/ICD-9: L76.82 Postoperative surgical complication involving skin associated with dermatologic procedure, unspecified complication Insurance: Payor: MEDICARE / Plan: MEDICARE A & B / Product Type: Medicare / Patient Class: Inpatient Service period from: 09/20/2018 to 12/19/2018 Patient seen on 10K. Brief Hospital Course: Gloria Adhikari is a 68 yo woman who was admitted on 2018, with acomplicated history following surgical management of ruptured anterior communi cating artery aneurysm and hydrocephalus which occurred in 2007, who has required multiple s urgical procedures for wound infection, explant and re-implantation of cranioplasty.She un derwent synthes cranioplasty (05/08/18) with rotational flap performed by ENT which has been complicated by wounddehiscence managed by ENT over sewing (05/14-) and explant of craniop lasty and wound closure (07/11), with cultures positive for staph epidermidis. She is most re cently s/p replacement of right mesh cranioplasty, wound debridement and reconstruction with a latissimus dorsi free tissue flap (08/03/18)[facility] concern for underlying infection/involvement of mesh cranioplasty.Blood culture remar demetrius for coag negative staph + staph epidermidis (obtained 09/14),to OR 09/19 for scalp lida ridement, washout, explant of cranioplasty/flap. (adapted from Dr. Rosalino Conway's 09/20 note) Indication for Physical Therapy Evaluation: concerns for impaired mobility Relevant Precautions: Paged team re: does pt need helmet, given infection, of flap.. . Past Medical History: Diagnosis Date Abnormal LFTs (liver function tests) CAD in [place] artery s/p NSTEMI 12/27/2014; status post stent placement in the mid LAD Chronic pain COPD on oxygen at night Essential hypertension GERD (gastroesophageal reflux disease) Goiter Hemorrhagic stroke ([facility]) 2007 aneurysm MRSA (methicillin resistant staph aureus) culture positive post cariotomy for SAH Otitis media recent abx preadmit PONV (postoperative nausea and vomiting) Subarachnoid hemorrhage due to ruptured aneurysm ([facility]) 2007 Tobacco dependence Past Surgical History Procedure Laterality Date Partial thyroidectomy Right Hysterectomy Bladder suspension 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 Driller And Reamer shunt Tympanoplasty Right 1987 Lumpectomy of left breast 1979 Coronary stent placement 12/28/2014 status post stent placement in the mid LAD Removal of vp information technology shunt Cholecystectomy Present at bedside other than patient and physical therapist: Pt's brother and [id number] w Subjective: Feeling better, has been getting up just fine Living Environment: will disch with her brother and [id number] to their home in [facility] [id number] will manage wound care. Otherwise pt lives alone in [place] Prior level of function: independent with mobility and gait Equipment: has 2 helmets at home Patient / Family Goal: get better Communication: Panamanian Barriers: None Pain: no reports of pain. Cognitive Screen: Level of alertness: awake Orientation: Person, place, situation Quality of responses: Appropriate Command following: within functional limits Judgment / safety awareness: Within functional limits Physical Assessment: ROM: Bilateral upper extremities and bilateral lower extremities active range of motion i s within functional limits Strength: Bilateral upper extremities and bilateral lower extremities within functional l imits Edema: mild at incision Skin Integrity: Incision with sanguinous drainage dried along scalp, open wound packed wi th Xeroderm is clean Posture: seated upright standing upright Neurological Function: Muscle Tone: bilateral upper extremities and bilateral lower extremities within normal li mits Proprioception: Within normal limits Gross Motor: Within normal limits Fine Motor: intact Balance: seated stat good Seated dyn good Standing stat good Standing dyn good Functional Balance Grades Normal Static: Patient able [...] rehabilitation: assessment and treatme nt (5th ed.). [place]: Ochoa Lopez [facility]. p.254 Functional Mobility and Gait: supine to sit independent Sit to stand independent Gait independent x 500 ft, steady with lateral head turns, 90, 180 and 360 deg turns, negot iating obstacles Outcome Measure: 1. [facility] BASIC MOBILITY Difficulty turning over [...] independent/Independent Help needed climbing 3-5 steps w/railing 3 - A Little - Minimal/Contact Guard Assist/Superv ision [facility] Basic Mobility Total Score 23 Interpretation of [facility] Short Form - Basic Mobility: Predicts discharge post hospitalization ([facility] raw score: 6-24) Home = 20.1 Home with home care = 17.9 nursing home facility = 13.6 Inpatient rehabilitation facility = 13.6 assisted care = 11.5 Susan Ledesma. The use of functional outcome measure in acute care to guide discharg e recommendations. J Acute Upholsterer Inside. 2012;3(3):248 Pt Education: Discussed mobility, helmet as well as cleanliness of wound/helmet with pt. Sh e is in agreement that she would like clear and specific directions re: need of helmet, poss ibly new helmet. Time in: 1330 Time out: 1403 Ended session: At end of treatment pt supine in bed with call payton at side and bedside nurs e updated. ASSESSMENT: Ms. Adhikari is mobilizing and ambulating independently, plans to disch with luis miguel engel assist, has a designated family member to manage wound care. Paged first call re: filemon fonseca Left message with case management re: pt's plan to disch home with her brother and sister -in-law on Tuesday. No further acute PT indicated, signing off. Interpretation of [facility] Short Form - Basic Mobility: CMS Modifier (G-Code) Score (in points) % of Functional Impairment, Limitation, or Restrict ion CN 6 100% impaired, limited, restricted CM [...] m obility and may be an underestimate Activity Plan: Nursing to re-assess per shift as needed. - Lights on and curtains open during day hours. - Up to bedside chair via stand pivot - up and ambulate throughout unit with bedside nurse/ SPEED BELT SANDER TENDER supervision Discharge Recommendations: Intermittent assistance at discharge Personal factors/Comorbidities; Behavior: distracted Learning Factors: None. Social Issues: lives alone, multiple hospitalizations, wound care needs Medical Conditions Impacting Care: Multiple co-morbidities High - 3 or more personal factors. Body Systems Elements: Activity limitations: Difficulty with activities of daily living, wound care needs, assista nce managing IADLs Participation restrictions: Community activities. Moderate - 3 or more elements Clinical Presentation: Moderate - Evolving: Atypical presentation of condition Clinical decision making: Moderate Complexity: Clinical coordination of care Complexity: moderate Gloria's knowledge of disease process: Good . The patient requires services that can be safely and effectively performed only by a quali fied therapist to address the aforementioned and highlighted problems and goals. Goals discussed and agreed upon with Gloria. PLAN: Eval only The above plan of care and goals were developed and reviewed with the patient. Should this patient discharge from the hospital prior to the next physical therapy treatmen t, this note shall serve as the discharge summary. Jaylon Amor PT, DPT Pager: [phone] androhith - Andree Hagen ra RN - 09/20/2018 11:30 AM PDTNursing Handoff Patient Daily Goal: Go outside to 9th floor (09/17/18 0816) Patient Specific Preferences: prefers the oxymask vs Nasal Cannula (09/14/182038) [facility] IP NURSE HANDOFF: Nesbitt hospital course events: Admit: Admitted to [facility] wi th TIA, transferred to [facility] with infection and nonviable flap (09/13). 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 Infection, multiple flap revisions. July 2018 Wound debridement with Rt latissi mus dorsi flap and replacement of mesh cranioplasty. 09/14: Necrotic flap debrided at bedside by ENT 09/19: Scalp rotational flap done in OR HYGIENE/INFECTION Patient/Family Target: Gloria's surgical sites will remain free of infection Progress to Target: No Change As evidenced by: Gloria has been afebrile and there are no signs/symptoms of infection. Some drainage was OK/normal per MD. Continue monitoring for signs of dehiscence and additional drainage. RESTORATIVE MEASURES/SELF-MANAGEMENT Patient/Family Target: Gloria will be able to void Progress to Target: Improving As evidenced by: Gloria was able to void today. NURSING ASSESSMENT & RECOMMENDATIONS FORWARD Nursing Assessment of Patient Stability Risk: Moderately stable Recommendations Forward: - SBA, - [address] - Pt unable to get PICC due to (+) blood cultures. VAT did not want to put in a midline, s o ultrasound was used for a new IV in Lt arm. OK per pharmacy to run the Vanco and Zosyn to gether if needed. - Please take pt outside to 9th floor deck daily if possible - Monitor for signs of stroke. Pt had TIA at home and was admitted to [facility] b efore coming to [facility]. - Encourage increased po intake Barriers to discharge: Possible discharge Tuesday but son Augusto cannot pick pt up until morning. They both work and cannot get Tuesday off to come get her. Also, he would like u s to not go over discharge instructions until he is present. Pt has history of noncompliance and he would like to hear instructions. They would also like home health for wound care. UPDATE: Pt states she spoke to her son and she will discharge on Tuesday with her friends an d her son will pick her up Tuesday from their house. andoff - Benjamin Bradley RN - 09/20/2018 1:50 AM PDTNursing Handoff [facility] IP NURSE HANDOFF: [facility]es[facility]itt hospital course events: Admit: Admitted to [facility] wi th TIA, transferred to [facility] with infection and nonviable flap (09/13). 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 Infection, multiple flap revisions. July 2018 Wound debridement with Rt latissi mus dorsi flap and replacement of mesh cranioplasty. 09/14: Necrotic flap debrided at bedside by ENT 09/19: Scalp rotational flap done in OR HYGIENE/INFECTION Patient/Family Target: Gloria's surgical sites will remain free of infection Progress to Target: No Change As evidenced by: At the start of the shift, Gloria had some drainage from her incision sites. paged and assessed at bedside, stated that some drainage was OK/normal. Continue monitoring for signs of dehiscence and additional drainage. RESTORATIVE MEASURES/SELF-MANAGEMENT Patient/Family Target: Gloria will be able to void Progress to Target: Improving As evidenced by: Gloria was able to void at 0600 and had a PVR of 350ml. pged regarding the PVR, have n ot received a response yet. NURSING ASSESSMENT & RECOMMENDATIONS FORWARD Nursing Assessment of Patient Stability Risk: Moderately unstable Recommendations Forward: - SBA, was slightly unsteady the first time getting up post-surger y. Previously was up ad cadence. - [address] - on 4 L oxygen tonight (COPD) and continuous O2 monitoring - Pt unable to get PICC due to (+) blood cultures. VAT did not want to put in a midline, s o ultrasound was used for a new IV in Lt arm. OK per pharmacy to run the Vanco and Zosyn to gether if needed. - Please take pt outside to 9th floor deck daily if possible - Monitor for signs of stroke. Pt had TIA at home and was admitted to [facility] coming to [facility]. - Encourage increased po intake - monitor PVR, last voided at 0600 w/ PVR of 350ml. Barriers to discharge: Pending clinical course andoff - Vida Rogel RN - 09/19/2018 7:02 PM PDTNursing Handoff [facility] IP NURSE HANDOFF: Nesbitt hospital course events: Admit: Admitted to [facility] wi th TIA, transferred to [facility] with infection and nonviable flap (09/13). 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 Infection, multiple flap revisions. July 2018 Wound debridement with Rt latissi mus dorsi flap and replacement of mesh cranioplasty. 09/14: Necrotic flap debrided at bedside by ENT Recommendations Forward: - Scalp rotational flap done today 09/19 - Pt needs to call to get up tonight, bed alarm on - Benavides catheter removed 1545 in PAC U. Pt due to void - [address] - Leave pt on 4 L oxygen tonight 09/19, continuous O2 monitoring - Pt unable to get PICC due to (+) blood cultures. VAT did not want to put in a midline, s o ultrasound was used for a new IV in Lt arm. OK per pharmacy to run the Vanco and Zosyn to gether if needed. - Please take pt outside to 9th floor deck daily if possible - Monitor for signs of stroke. Pt had TIA at home and was admitted to [facility] coming to [facility]. - Encourage increased po intake andoff - Sherita Kirkpatrick R N - 09/19/2018 4:27 PM PDTMeets Phase I Discharge Criteria (Stable For Transfer): yes upon discharge. See event times. Major deviations/events or pertinent findings of eddie-operative stay: uneventful pacu stay Anticipated post-op needs/devices/follow up: pain control. Advance diet and activity as or dered. * No Diagnosis Codes entered * Surgical Procedure Planned - Actual Procedure Performed: Procedure(s): DEBRIDEMENT OF SCALP, SCALP ROTATION FLAP REMOVAL AND REPLACEMENT OF HARDWARE (MESH) Anesthesia: General & Local Length of procedure: In Room/Out of Room: 3 Hr 22 Min 25 Sec Surgeon(s) and Role: Panel 1: * Ata White MD - Primary * Augusto Shaikh MD - Fellow Panel 2: * Taran Cha MD - Primary * Alfreda Mccollum MD - Fellow Neuro: POSS Sedation Level: 2;3 Last pain medication given: Pain medication totals: none as current in pacu Additional pain medication information: none Functional Epidural: N/A INSPECTOR OPEN DIE: N/A Respiratory: RR: 19 , O2 Sat: 90 % , O2 Delivery: Nasal cannula Breath Sounds: Ex (hx copd) DARIEN: LLL: RUL: RLL: MELISSA No Comment: no hx Cardiac: BP: 118/93 HR: 91 GI: Nausea/Vomiting Status: No Signs/Symptoms: Interventions: Assessment: Comments: denies nausea. Zofan and Dex in OR : Last void: buster garcia'saida at end of OR around Contact Name: Feb [phone] Contact Number: Feb [phone] Family contacted: Yes Comment:will update prior to tranfser Belongings:returning. On bed Right head LAZARA x 1. Sutures around flap. Small SS drainage. Posterior portion partially o pen with vasolene gauze. PIV x 2. 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 and was treated with 6 week course of c eftriaxone Cardiovascular CAD in [place] artery Assessment & Plan NSTEMI in 2014 s/p mid LAD stent previously on ASA- will defer to neurosurgery for restarti ng Last echoMarch 2018 EF 35-40% 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 Cont nicotine patch Educate on benefits of smoking cessation ssessment & Plan No te - Barry Ibrahim FNP - 09/19/2018 2:34 PM PDTAssociated Problem(s): [id number] pack year smoker. 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 and was treated with 6 week course of c eftriaxone ssessment & Plan No te - Barry Ibrahim FNP - 09/19/2018 2:28 PM PDTAssociated Problem(s): CAD in [place] lara ryNSTEMI in 2015 s/p mid LAD stent previously on ASA- will defer to neurosurgery for restart ing Last echoMarch 2018 EF 35-40% 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 with several focal areas of dyskinesis RV normal size and function Mild Aortic Regurgitation -maintian telemetry ssessment & Plan Note - Barry Ibrahim FNP - 09/19/2018 2:26 PM PDTAssociated Problem(s): HTN (hypertension)Systolic goal less than 160 Cont metoprolol xl 50 mg andoff - Cluas Adkins RN - 09/19/2018 4:54 AM PDTNursing Handoff Patient Daily Goal: Go outside to 9th floor (09/17/18 0816) Patient Specific Preferences: prefers the oxymask vs Nasal Cannula (09/14/182038) [facility] IP NURSE HANDOFF: [facility]es[facility]itt hospital course events: Admitted to [facility] with TIA, transferred to [facility] with infection and nonviable flap (09/13). 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 Infection, multiple flap revisions. July 2018 Wound debridement with Rt latissi mus dorsi flap and replacement of mesh cranioplasty. 09/14: Necrotic flap debrided at bedside by ENT 09/19: NPO since MN, OR today at 1115 am NURSING ASSESSMENT & RECOMMENDATIONS FORWARD Nursing Assessment of Patient Stability Risk: Moderately stable Recommendations Forward: - npo since midnight on 09/19 - CHG needed in AM - feeling anxious about surgery - denies pain at this time - OR scheduled at 11 am at this time Barriers to discharge: OR at 1115 am on 09/19 andoff - Nataliya Reilly RN - 09/18/2018 4:50 PM PDTNursing Handoff Patient Daily Goal: Go outside to 9th floor (09/17/18 0816) Patient Specific Preferences: prefers the oxymask vs Nasal Cannula (09/14/182038) [facility] IP NURSE HANDOFF: [facility]es[facility]itt hospital course events: Admitted to [facility] with TIA, transferred to [facility] with infection and nonviable flap (09/13). 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 Infection, multiple flap revisions. July 2018 Wound debridement with Rt latissi mus dorsi flap and replacement of mesh cranioplasty. 09/14: Necrotic flap debrided at bedside by ENT NURSING ASSESSMENT & RECOMMENDATIONS FORWARD Nursing Assessment of Patient Stability Risk: Moderately stable Recommendations Forward: - npo 09/19 - had shower this afternoon - feeling anxious about surgery - OR scheduled at 11 am at this time - ambulated 3x In hallway tonight Barriers to discharge: OR tomorrow andoff - Vida Rogel RN - 09/18/2018 12:08 PM PDTNursing Handoff [facility] IP NURSE HANDOFF: Nesbitt hospital course events: Admit: Admitted to [facility] wi th TIA, transferred to [facility] with infection and nonviable flap (09/13). 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 Infection, multiple flap revisions. July 2018 Wound debridement with Rt latissi mus dorsi flap and replacement of mesh cranioplasty. 09/14: Necrotic flap debrided at bedside by ENT Recommendations Forward: - Scalp rotational flap planned for Tuesday 09/19 - Consent for surgery signed 09/18, type and screen drawn - Pt NPO at midnight - Pt OK to be up ad cadence, but likes someone to walk with her in the hallways - Pt unable to get PICC due to (+) blood cultures. VAT did not want to put in a midline, s o ultrasound was used for a new IV in Lt arm. OK per pharmacy to run the Vanco and Zosyn to gether if needed. - Please take pt outside to 9th floor deck daily if possible - Monitor for signs of stroke. Pt had TIA at home and was admitted to [facility] b efore coming to [facility]. - Encourage increased po intake lan of Care - Georgia Bangura, PT - 09/18/2018 10:04 AM PDTPHYSICAL THERAPY CONTACT NOTE: Orders received, chart reviewed,patient is heading to OR on 09/19/18.Patient will be evaluat ed post surgery.RN updated.Patient is ad cadence in room with ambulation-as per conversation edith h RN. Georgia Bangura,[place] [id number] signed by Georgia Bangura PT at 09/18/2018 10:06 AM PDTHandoff - Marni Gracia RN - 09/18/2018 1:42 AM PDTNursing Handoff Patient Daily Goal: Go outside to 9th floor (09/17/18 0816) Patient Specific Preferences: prefers the oxymask vs Nasal Cannula (09/14/182038) [facility] IP NURSE HANDOFF: [facility]es[facility]itt hospital course events: Admitted to [facility] with TIA, transferred to [facility] with infection and nonviable flap (09/13). 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 Infection, multiple flap revisions. July 2018 Wound debridement with Rt latissi mus dorsi flap and replacement of mesh cranioplasty. 09/14: Necrotic flap debrided at bedside by ENT SAFETY Patient/Family Target: Gloria will not sustain any falls/injuries Progress to Target: No Change As evidenced by: Gloria has been ambulating to BR by herself, denies any dizziness, no incontinent, knows her limits and calls when wanting to walk in hallways NURSING ASSESSMENT & RECOMMENDATIONS FORWARD Nursing Assessment of Patient Stability Risk: Moderately stable Recommendations Forward: Scalp rotational flap planned for Tuesday 09/19 - Pt OK to be up ad cadence - Pt would like someone to walk with her in hallways bid - Pt unable to get PICC due to (+) blood cultures. New IV in Rt hand on 09/18. OK per ph armacy to run the Vanco and Zosyn together. - Please take pt outside to 9th floor deck daily if possible - Monitor for signs of stroke. Pt had TIA at home and was admitted to [facility] b efore coming to [facility].(left side droop) - Encourage increased po intake - Bowel Incontinence 09/16- hold ss - looking for her slippers . Not in ED pls call observation unit tomorrow as she was there from ED - obs - 10K andoff - Nataliya Reilly RN - 09/17/2018 5:33 PM PDTNursing Handoff Patient Daily Goal: Go outside to 9th floor (09/17/18 0816) Patient Specific Preferences: prefers the oxymask vs Nasal Cannula (09/14/182038) [facility] IP NURSE HANDOFF: Nesbitt hospital course events: Admitted to [facility] with TIA, transferred to [facility] with infection and nonviable flap (09/13). 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 Infection, multiple flap revisions. July 2018 Wound debridement with Rt latissi mus dorsi flap and replacement of mesh cranioplasty. 09/14: Necrotic flap debrided at bedside by ENT SAFETY Patient/Family Target: Gloria will not sustain any falls/injuries Progress to Target: No Change As evidenced by: Gloria has been ambulating to by herself, denies any dizziness, no incontinent, knows her limits and calls when wanting to walk in hallways NURSING ASSESSMENT & RECOMMENDATIONS FORWARD Nursing Assessment of Patient Stability Risk: Moderately stable Recommendations Forward: Scalp rotational flap planned for Tuesday 09/19 - Pt OK to be up ad cadence - Pt would like someone to walk with her in hallways bid - Pt unable to get PICC due to (+) blood cultures. New IV in Rt forearm on 09/16. Pt has 2 IVs on Rt arm. If one IV is lost it is OK per pharmacy to run the Vanco and Zosyn together . - Please take pt outside to 9th floor deck daily if possible - Monitor for signs of stroke. Pt had TIA at home and was admitted to [facility] b efore coming to [facility].(left side droop) - Encourage increased po intake - Bowel Incontinence 09/16- hold ss - looking for her slippers . Not in ED pls call observation unit tomorrow as she was there from ED - obs - 10K andoff - Noreen Reece RN - 09/17/2018 2:46 PM PDTNursing Handoff Patient Daily Goal: Go outside to 9th floor (09/17/18 0816) Patient Specific Preferences: prefers the oxymask vs Nasal Cannula (09/14/182038) [facility] IP NURSE HANDOFF: Nesbitt hospital course events: Admit: Admitted to [facility] wi th TIA, transferred to [facility] with infection and nonviable flap (09/13). 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 Infection, multiple flap revisions. July 2018 Wound debridement with Rt latissi mus dorsi flap and replacement of mesh cranioplasty. 09/14: Necrotic flap debrided at bedside by ENT SAFETY Patient/Family Target: Gloria will not fall Progress to Target: Improving As evidenced by: Gloria is up ad cadence in . However continue w/ frequent rounds as she occassionally needs help w/ line management. For laps in the hallway she prefers to be SBA. Please take her off unit down to 9k deck during the day. COMFORT/ANXIETY/BEHAVIOR Patient/Family Target: Gloria will go down to the 9K deck this shift Progress to Target: Improving As evidenced by: Gloria went to the 9K deck with her brother and [id number] Recommendations Forward: - Scalp rotational flap planned for Tuesday 09/19 - Pt OK to be up ad cadence - Pt would like someone to walk with her in hallways bid - Pt unable to get PICC due to (+) blood cultures. New IV in Rt forearm on 09/16. Pt has 2 IVs on Rt arm. If one IV is lost it is OK per pharmacy to run the Vanco and Zosyn together . - Please take pt outside to 9th floor deck daily if possible - Monitor for signs of stroke. Pt had TIA at home and was admitted to [facility] efore coming to [facility]. - Encourage increased po intake - Bowel Incontinence 09/16- hold ss Barriers to discharge: OR Tuesday andoff - Ashley Garcia RN - 09/17/2018 5:52 AM PDTNursing Handoff [facility] IP NURSE HANDOFF: Nesbitt hospital course events: Admit: Admitted to [facility] th TIA, transferred to [facility] with infection and nonviable flap (09/13). 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 Infection, multiple flap revisions. July 2018 Wound debridement with Rt latissi mus dorsi flap and replacement of mesh cranioplasty. 09/14: Necrotic flap debrided at bedside by ENT SAFETY Patient/Family Target: Gloria will not fall Progress to Target: Improving As evidenced by: Gloria is up ad cadence in . However continue w/ frequent rounds as she occassionally needs help w/ line management. For laps in the hallway she prefers to be SBA. Please take her off unit down to 9k deck during the day. Recommendations Forward: - Scalp rotational flap planned for Tuesday 09/19 - Pt OK to be up ad cadence - Pt would like someone to walk with her in hallways bid - Pt unable to get PICC due to (+) blood cultures. New IV in Rt forearm on 09/16. Pt has 2 IVs on Rt arm. If one IV is lost it is OK per pharmacy to run the Vanco and Zosyn together . - Please take pt outside to 9th floor deck daily if possible - Monitor for signs of stroke. Pt had TIA at home and was admitted to [facility] efore coming to [facility]. - Encourage increased po intake - Bowel Incontinence 09/16- hold ss Barriers to discharge: OR Tuesday androhith - Shabana Rogel RN - 09/16/2018 6:19 PM PDTNursing Handoff [facility] IP NURSE HANDOFF: Nesbitt hospital course events: Admit: Admitted to [facility] wi th TIA, transferred to [facility] with infection and nonviable flap (09/13). 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 Infection, multiple flap revisions. July 2018 Wound debridement with Rt latissi mus dorsi flap and replacement of mesh cranioplasty. 09/14: Necrotic flap debrided at bedside by ENT Recommendations Forward: - Scalp rotational flap planned for Tuesday 09/19 - Pt OK to be up ad cadence - Pt would like someone to walk with her in hallways bid - Pt unable to get PICC due to (+) blood cultures. New IV in Rt forearm on 09/16. Pt has 2 IVs on Rt arm. If one IV is lost it is OK per pharmacy to run the Vanco and Zosyn together . - Please take pt outside to 9th floor deck daily if possible - Monitor for signs of stroke. Pt had TIA at home and was admitted to [facility] b efore coming to [facility]. - Encourage increased po intake lan of Care - Tom Harman PT - 09/16/2018 9:26 AM PDTPhysical Therapy Contact Note: Chart reviewed, RN consulted. Per RN, pt currently cleared to be up ad cadence. Plans to go to the OR on 09/19, will follow up following procedure. David Harman PT, DPT Pager: [phone] andoff - Odette Garcia RN - 09/16/2018 5:31 AM PDTNursing Handoff Patient Daily Goal: Get some rest (09/15/182010) Patient Specific Preferences: prefers the oxymask vs Nasal Cannula (09/14/182038) [facility] IP NURSE HANDOFF: Nesbitt hospital course events: Gloria Adhikari is a 68 y.o. 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 She develope d an infection of her cranioplasty with associated epidural abscess requiring explantation i n 12/08 and underwent a repeat synthetic cranioplasty with the Neurosurgery team 05/09, at [facility] time Dr White/Tesha performed a rotation advancement scalp flap for coverage of new impl ant. This wasfurther complicated by recurrentexposed cranioplasty requiring a take back to the OR on 07/11 for removal of cranioplasty.She is most recently s/p re-placement of rig ht mesh cranioplasty, wound debridement and reconstruction with a latissimus dorsi free tiss ue flap on 08/03/18." Gloria Adhikari was noted to have Left side facial drooping at home and went to [facility] ED, CT head that was reportedly negative. At ED it was noted she had foul smelling disch arge from wound, contacted her [facility] ENT and referred to [facility] ED. No records of ED visit on 09/12, reportedly CT head neg, facial droop resolved and has anurag l neuro exam now, ?TIA, unclear what was done at OSH, have requested records. She denies any fevers/chills, POSADAS, weakness, numbness/tingling Upon presentation to the Acute ED, her vital signs were normal. her exam revealed right s ided latissimus dorsi flap covered with thick plaque of necrotic tissue, lateral aspect of f lap visualized and appears soft and warm, unable to appreciate any dehiscence in her incisio ns or purulent drainage from under the flap, no surrounding erythema A work up was initiated which included CBC WNL, CMP WNL, lactate 1.4. Imaging from OSH ([facility] in [place]) being pushed ENT evaluated and await final recs Once stable, the patient was transferred to the Emergency Department Observation Unit with a diagnosis of possible surgical wound infection for continuation of care including observat ion SAFETY Patient/Family Target: Gloria will ambulate safely ad cadence Progress to Target: Improving As evidenced by: Gloria is up ad cadence in rm. Continue to montior as she has occassionally endorsed blurry v ision and need for help with line management. Recommendations Forward: ox4 Denies pain and N/V IV antibiotics - both cultures have come back positive Ad cadence Reg diet Xeroform, telfa and headband over wound Encourage PO intake Barriers to discharge: OR planned on Tuesday lan of Care - Venus Basurto [facility] - 09/15/2018 1:55 PM PDTFormatting of this note might be different from t he original. Social Work Psychosocial Assessment Purpose of the Interview: Nurse referral, patient stating that she may not want surgery, wo rried about getting her 'affairs' together Current Living Situation: Patient lives at home by herself in [facility]. Current Social Supports: Patient has a son and daughter in law that live nearby. They stop by in the evenings after work to assist patient with things as needed. Patient has a daugh ter in the [place] area, who stays 'very busy with work.' She has a brother in the [place] area who supports patient as much as able as well. Financial/Insurance status/ Employment/Education or Vocational training: Patient is covered by Medicare. She is retired. No financial concerns discussed. Activities/Spirituality: Not discussed. Medical issues: Patient Active Problem List Diagnosis Chronic obstructive pulmonary disease (HCC) HTN (hypertension) Chronic pain Skull defect Coronary arteriosclerosis in qagan [place] artery History of non-ST elevation myocardial infarction (NSTEMI) Continuous tobacco abuse Encounter for long-term (current) use of antibiotics Tobacco dependence Ischemic cardiomyopathy PONV (postoperative nausea and vomiting) Acute postoperative pain History of chronic respiratory failure History of cranioplasty Wound dehiscence Postoperative anemia due to acute blood loss Postoperative surgical complication involving skin associated with dermatologic procedure, unspecified complication PCP: [facility] [address] [place] [id number] Mental health history: Nothing noted in chart review. Substance use History: Not discussed. Chart review indicated tobacco use. Patient s post hospital care plan: Patient wants to return home. Last hospitalization, s he stayed at her brother's home for recovery. She does not wish to do this again. Community Agency Involvement: Patient currently set up with home health services. Advanced Directive/POA/HCR: Patient is full code. No POLST or adv dir noted in chart. Clinical Formulation: (Including patient strengths, cultural considerations, patient prefer ences, family support and involvement, identified barriers) SW and CM met with patient at bedside. She states that her team would like her to move for cooper with another surgery early next week. Patient expresses that she is 'exhausted' from h er medical status. She has been in hospitals and with in home health care for many months, has had complications from prior surgeries, difficult recoveries, and is uncertain as to whe ther or not she wants to have another surgery next week. Patient expresses a strong desire to return home, to be near her son and family, in her 'own bed,' doing her 'own thing.' SW and patient discussed briefly what a palliative approach would look like, focusing on qu ality of life and medical decisions that would allow her comfort and to be at home. Patient interested in discussing this more, possibly with the palliative team. Recommendations/Plans/Referrals: (Including coordination of care with other disciplines) SW paged ENT team, awaiting for call back, to discuss a palliative care consult. Case discussed with bedside nurse. SW offered patient support and encouragement. SW remains available as needed for continued resources and support. Please call or page if needed. JUSTINA Peña, [facility] Conditioner Tender [facility] P [id number], [id number] lan of Care - Daniel Wolff i [employer] - 09/15/2018 9:22 AM PDTFormatting of this note might be different from the o riginal. Problem: RT Goals & Interventions Goal: Evaluation Flowsheets (Taken 09/15/2018 0921) $ Patient Evaluated This Shift?: Yes Note: History and Assessment Pulmonary problems: copd Smoking history: Social History Tobacco Use Smoking [...] - - Pain: Oxygen requirement: Heart rate: 88 Respiratory rate: 16 Temperature: Temp: 37.2 C (99 F) Breathsounds:Throughout [place]: coarse Cough and sputum production: Respiratory Acuity and Protocol Plan A respiratory evaluation has been completed. Based on this assessment Evaluated for treatme nt under home maintenance therapy. Pt will receive home reg neb treatment as needed. andoff - Ashley Garcia RN - 09/15/2018 5:28 AM PDTNursing Handoff Patient Daily Goal: Make a plan and talk to the Drs. (09/14/182038) Patient Specific Preferences: prefers the oxymask vs Nasal Cannula (09/14/182038) [facility] IP NURSE HANDOFF: Nesbitt hospital course events: Gloria Adhikari is a 68 y.o. 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 This wasfurther complicated by recurrentexposed cranioplasty requiring a take back to the OR on 07/11 for removal of cranioplasty.She is most recently s/p re-placement of rig ht mesh cranioplasty, wound debridement and reconstruction with a latissimus dorsi free tiss ue flap on 08/03/18." Gloria Adhikari was noted to have Left side facial drooping at home and went to [facility] ED, CT head that was reportedly negative. At ED it was noted she had foul smelling disch arge from wound, contacted her [facility] ENT and referred to [facility] ED. No records of ED visit on 09/12, reportedly CT head neg, facial droop resolved and has anurag l neuro exam now, ?TIA, unclear what was done at OSH, have requested records. She denies any fevers/chills, POSADAS, weakness, numbness/tingling Upon presentation to the Acute ED, her vital signs were normal. her exam revealed right s ided latissimus dorsi flap covered with thick plaque of necrotic tissue, lateral aspect of f lap visualized and appears soft and warm, unable to appreciate any dehiscence in her incisio ns or purulent drainage from under the flap, no surrounding erythema A work up was initiated which included CBC WNL, CMP WNL, lactate 1.4. Imaging from OSH ([facility] in [place]) being pushed ENT evaluated and await final recs Once stable, the patient was transferred to the Emergency Department Observation Unit with a diagnosis of possible surgical wound infection for continuation of care including observat ion SAFETY Patient/Family Target: Gloria will ambulate safely ad cadence Progress to Target: Improving As evidenced by: Gloria is up ad cadence in . Continue to [facility] as she has occassionally endorsed blurry v ision and need for help with line management. Recommendations Forward: ox4 Denies pain and N/V IV antibiotics - both cultures have come back positive - MD aware Ad cadence Reg diet Xerofoam over wound Barriers to discharge: Pending clinical course. Possible surgery, pt indicated she doesn't want surgery and would like to go home. D RN Student Note - Becki Lane RN - 09/14/2018 2:03 PM PDTED Nursing Handoff Report Primary focus of stay: Post operative complication (necrotic flap from craniotomy) Pertinent physical findings (Focused assessment, Pain/discomfort, Neuro, Cards/tele and Res p assessment): Neuro: A&Ox4, R facial droop HEENT: R head wound from graft Cards: Pt denies chest pain, no edema Resp: Hx of COPD, NAD, pt denies SOB/dyspnea GI: Bowel sounds audible in all four quadrants, abdomen soft/nontender, pt endorses regular /normal BMs : WDL Musc: WDL Patient denies pain. Rates as 0/10 Patient-specific pain target: 3 Patient concern (Primary reason for coming to the ED): R facial droop/Wound on R side of he ad Psych/social assessment & interventions: No pertinent issues noted. No interventions needed . Safety risks: no safety risks noted Isolation status None Legal status: Voluntary Medical/psychosocial stability: Moderately Stable Transition concerns as related to stability: none Alarm parameter changes: none Care R/T comfort, hygiene, education (i.e., activity, environment, toileting, skin, ADLs, e tc.): Denies pain, independent with ADLs Orders to follow up on: ED Obs orders Anticipated/pending procedures or disposition: Surgery with ENT team to be scheduled. Pt cu rrently on regular diet. Education provided to the patient/family: Safety, smoking cessation, call light. D RN Student Note - Becki Lane RN - 09/14/2018 1:51 PM PDTIV therapy paged for IV access in preparat ion for CT with contrast. D RN Student Note - Becki Lane RN - 09/14/2018 12:33 PM PDTCharted in error. D RN Student Note - Becki Lane RN - 09/14/2018 10:20 AM PDTENT changed dressing for second time this morning. D Teaching Notes - Meeta Donnelly MD - 09/14/2018 12:41 AM PDTTeaching note not needed. documented in this e ncounter Plan of Treatment + + +--------+ + + | Name | Type | Priori | Associated Diagnoses | Order Schedule | | | | ty | | | + + +--------+ + + | BLOOD CULTURE WORKUP | Lab - | Urgent | | 09/14/2018 until | | | [facility] | | | discontinued, 1 | | | Performable | | | completed | | | s | | | | + + +--------+ + + documented as of this encounter Procedures + +--------+ + + + | Procedure Name | Priori | Date/Time | Associated Diagnosis | Comments | | | ty | | | | + +--------+ + + + | OPERATION RECORD | | 09/22/2018 | | Results for this | | | | 11:27 AM | | procedure are in the | | | | PDT | | results section. | + +--------+ + + + | OPERATION RECORD | | 09/22/2018 | | Results for this | | | | 11:27 AM | | procedure are in the | | | | PDT | | results section. | + +--------+ + + + | CBC (HEMOGRAM) ONLY | Urgent | 09/22/2018 | | Results for this | | | | 7:08 AM | | procedure are in the | | | | PDT | | results section. | + +--------+ + + + | BASIC METABOLIC SET | Routin | 09/22/2018 | | Results for this | | (NA, K, CL, TCO2, | e | 7:08 AM | | procedure are in the | | BUN, CR, GLU, CA) | | PDT | | results section. | + +--------+ + + + | CBC ONLY | Urgent | 09/22/2018 | | Results for this | | | | 7:08 AM | | procedure are in the | | | | PDT | | results section. | + +--------+ + + + | PROCEDURE NOTE | Routin | 09/21/2018 | | Results for this | | | e | 8:41 PM | | procedure are in the | | | | PDT | | results section. | + +--------+ + + + | CBC (HEMOGRAM) ONLY | Urgent | 09/21/2018 | | Results for this | | | | 5:31 AM | | procedure are in the | | | | PDT | | results section. | + +--------+ + + + | BASIC METABOLIC SET | Routin | 09/21/2018 | | Results for this | | (NA, K, CL, TCO2, | e | 5:31 AM | | procedure are in the | | BUN, CR, GLU, CA) | | PDT | | results section. | + +--------+ + + + | CBC ONLY | Urgent | 09/21/2018 | | Results for this | | | | 5:31 AM | | procedure are in the | | | | PDT | | results section. | + +--------+ + + + | PHOSPHORUS, PLASMA | Routin | 09/21/2018 | | Results for this | | | e | 5:31 AM | | procedure are in the | | | | PDT | | results section. | + +--------+ + + + | MAGNESIUM, PLASMA | Routin | 09/21/2018 | | Results for this | | | e | 5:31 AM | | procedure are in the | | | | PDT | | results section. | + +--------+ + + + | CULTURE, BLOOD BACTI | Routin | 09/20/2018 | | Results for this | | & YEAST [facility] | e | 6:47 AM | | procedure are in the | | | | PDT | | results section. | + +--------+ + + + | CBC (HEMOGRAM) ONLY | Urgent | 09/20/2018 | | Results for this | | | | 6:47 AM | | procedure are in the | | | | PDT | | results section. | + +--------+ + + + | BASIC METABOLIC SET | Urgent | 09/20/2018 | | Results for this | | (NA, K, CL, TCO2, | | 6:47 AM | | procedure are in the | | BUN, CR, GLU, CA) | | PDT | | results section. | + +--------+ + + + | CBC ONLY | Urgent | 09/20/2018 | | Results for this | | | | 6:47 AM | | procedure are in the | | | | PDT | | results section. | + +--------+ + + + | CULTURE, BLOOD BACTI | Routin | 09/20/2018 | | Results for this | | & YEAST | e | 6:47 AM | | procedure are in the | | | | PDT | | results section. | + +--------+ + + + | PHOSPHORUS, PLASMA | Urgent | 09/20/2018 | | Results for this | | | | 6:47 AM | | procedure are in the | | | | PDT | | results section. | + +--------+ + + + | MAGNESIUM, PLASMA | Urgent | 09/20/2018 | | Results for this | | | | 6:47 AM | | procedure are in the | | | | PDT | | results section. | + +--------+ + + + | OPERATION RECORD | Routin | 09/19/2018 | | Results for this | | | e | 5:44 PM | | procedure are in the | | | | PDT | | results section. | + +--------+ + + + | CAPILLARY BLOOD | Routin | 09/19/2018 | Postoperative | Results for this | | GLUCOSE (NO CHG), | e | 3:56 PM | surgical | procedure are in the | | POC | | PDT | complication | results section. | | | | | involving skin | | | | | | associated with | | | | | | dermatologic | | | | | | procedure, | | | | | | unspecified | | | | | | complication | | + +--------+ + + + | CULTURE, FUNGAL | Urgent | 09/19/2018 | | Results for this | | EXCEPT BLOOD, SKIN, | | 2:28 PM | | procedure are in the | | HAIR, NAIL | | PDT | | results section. | + +--------+ + + + | CULTURE, TISSUE | Urgent | 09/19/2018 | | Results for this | | | | 2:28 PM | | procedure are in the | | | | PDT | | results section. | + +--------+ + + + | CULTURE, AFB (ALL | Urgent | 09/19/2018 | | Results for this | | SPEC TYPES EXCEPT | | 2:28 PM | | procedure are in the | | BLOOD) | | PDT | | results section. | + +--------+ + + + | CULTURE, FUNGAL | Urgent | 09/19/2018 | | Results for this | | EXCEPT BLOOD, SKIN, | | 2:12 PM | | procedure are in the | | HAIR, NAIL | | PDT | | results section. | + +--------+ + + + | CULTURE, WOUND DEEP | Urgent | 09/19/2018 | | Results for this | | W/ ANAEROBE | | 2:12 PM | | procedure are in the | | | | PDT | | results section. | + +--------+ + + + | CULTURE, AFB (ALL | Urgent | 09/19/2018 | | Results for this | | SPEC TYPES EXCEPT | | 2:12 PM | | procedure are in the | | BLOOD) | | PDT | | results section. | + +--------+ + + + | REMOVAL OF CRANIAL | | 09/19/2018 | SCALP INFECTION | | | HARDWARE | | 12:24 PM | | | | | | PDT | | | + +--------+ + + + | ROTATIONAL FLAP | | 09/19/2018 | SCALP INFECTION | | | FACE/ SCALP | | 12:24 PM | | | | | | PDT | | | + +--------+ + + + | 12 LEAD ECG | Routin | 09/19/2018 | | Results for this | | | e | 11:38 AM | | procedure are in the | | | | PDT | | results section. | + +--------+ + + + | CAPILLARY BLOOD | Routin | 09/19/2018 | Postoperative | Results for this | | GLUCOSE (NO CHG), | e | 11:36 AM | surgical | procedure are in the | | POC | | PDT | complication | results section. | | | | | involving skin | | | | | | associated with | | | | | | dermatologic | | | | | | procedure, | | | | | | unspecified | | | | | | complication | | + +--------+ + + + | CULTURE, BLOOD BACTI | Routin | 09/19/2018 | | Results for this | | & YEAST [facility] | e | 6:04 AM | | procedure are in the | | | | PDT | | results section. | + +--------+ + + + | BASIC METABOLIC SET | Routin | 09/19/2018 | | Results for this | | (NA, K, CL, TCO2, | e | 6:04 AM | | procedure are in the | | BUN, CR, GLU, CA) | | PDT | | results section. | + +--------+ + + + | CULTURE, BLOOD BACTI | Routin | 09/19/2018 | | Results for this | | & YEAST | e | 6:04 AM | | procedure are in the | | | | PDT | | results section. | + +--------+ + + + | CARDIOLOGY | | 09/19/2018 | | Results for this | | | | 12:00 AM | | procedure are in the | | | | PDT | | results section. | + +--------+ + + + | CBC (HEMOGRAM) ONLY | Routin | 09/18/2018 | | Results for this | | | e | 2:36 PM | | procedure are in the | | | | PDT | | results section. | + +--------+ + + + | CBC ONLY | Routin | 09/18/2018 | | Results for this | | | e | 2:36 PM | | procedure are in the | | | | PDT | | results section. | + +--------+ + + + | INR | Routin | 09/18/2018 | | Results for this | | | e | 11:24 AM | | procedure are in the | | | | PDT | | results section. | + +--------+ + + + | ANTIBODY SCREEN | Routin | 09/18/2018 | | Results for this | | | e | 11:24 AM | | procedure are in the | | | | PDT | | results section. | + +--------+ + + + | TYPE AND SCREEN | Routin | 09/18/2018 | | Results for this | | | e | 11:24 AM | | procedure are in the | | | | PDT | | results section. | + +--------+ + + + | ABO & RH TYPE | Routin | 09/18/2018 | | Results for this | | | e | 11:24 AM | | procedure are in the | | | | PDT | | results section. | + +--------+ + + + | VANCOMYCIN, TROUGH | Routin | 09/18/2018 | | Results for this | | | e | 9:18 AM | | procedure are in the | | | | PDT | | results section. | + +--------+ + + + | RENAL FUNCTION SET | Routin | 09/18/2018 | | Results for this | | (NA,K,CL,CO2,BUN,CRE | e | 9:18 AM | | procedure are in the | | AT,GLUC,CA,PHOS,ALB | | PDT | | results section. | | ) | | | | | + +--------+ + + + | MAGNESIUM, PLASMA | Routin | 09/18/2018 | | Results for this | | | e | 9:18 AM | | procedure are in the | | | | PDT | | results section. | + +--------+ + + + | CULTURE, BLOOD BACTI | Routin | 09/18/2018 | | Results for this | | & YEAST [facility] | e | 5:35 AM | | procedure are in the | | | | PDT | | results section. | + +--------+ + + + | CULTURE, BLOOD BACTI | Routin | 09/18/2018 | | Results for this | | & YEAST | e | 5:35 AM | | procedure are in the | | | | PDT | | results section. | + +--------+ + + + | CULTURE, BLOOD BACTI | Routin | 09/17/2018 | | Results for this | | & YEAST [facility] | e | 9:19 AM | | procedure are in the | | | | PDT | | results section. | + +--------+ + + + | CULTURE, BLOOD BACTI | Routin | 09/17/2018 | | Results for this | | & YEAST | e | 9:19 AM | | procedure are in the | | | | PDT | | results section. | + +--------+ + + + | RENAL FUNCTION SET | Routin | 09/17/2018 | | Results for this | | (NA,K,CL,CO2,BUN,CRE | e | 8:10 AM | | procedure are in the | | AT,GLUC,CA,PHOS,ALB | | PDT | | results section. | | ) | | | | | + +--------+ + + + | MAGNESIUM, PLASMA | Routin | 09/17/2018 | | Results for this | | | e | 8:10 AM | | procedure are in the | | | | PDT | | results section. | + +--------+ + + + | VANCOMYCIN, TROUGH | Routin | 09/16/2018 | | Results for this | | | e | 9:24 AM | | procedure are in the | | | | PDT | | results section. | + +--------+ + + + | RENAL FUNCTION SET | Routin | 09/16/2018 | | Results for this | | (NA,K,CL,CO2,BUN,CRE | e | 9:24 AM | | procedure are in the | | AT,GLUC,CA,PHOS,ALB | | PDT | | results section. | | ) | | | | | + +--------+ + + + | MAGNESIUM, PLASMA | Routin | 09/16/2018 | | Results for this | | | e | 9:24 AM | | procedure are in the | | | | PDT | | results section. | + +--------+ + + + | CBC AND AUTO DIFF | Routin | 09/15/2018 | | Results for this | | | e | 6:57 AM | | procedure are in the | | | | PDT | | results section. | + +--------+ + + + | CBC, WITH | Routin | 09/15/2018 | | Results for this | | DIFFERENTIAL | e | 6:57 AM | | procedure are in the | | | | PDT | | results section. | + +--------+ + + + | BASIC METABOLIC SET | Routin | 09/15/2018 | | Results for this | | (NA, K, CL, TCO2, | e | 6:57 AM | | procedure are in the | | BUN, CR, GLU, CA) | | PDT | | results section. | + +--------+ + + + | CT HEAD WWO CONTRAST | Urgent | 09/14/2018 | | Results for this | | | | 3:04 PM | | procedure are in the | | | | PDT | | results section. | + +--------+ + + + | CULTURE, BLOOD BACTI | Urgent | 09/14/2018 | | Results for this | | & YEAST [facility] | | 12:25 AM | | procedure are in the | | | | PDT | | results section. | + +--------+ + + + | BLOOD CULTURE WORKUP | Urgent | 09/14/2018 | | Results for this | | | | 12:25 AM | | procedure are in the | | | | PDT | | results section. | + +--------+ + + + | CULTURE, BLOOD BACTI | Urgent | 09/14/2018 | | Results for this | | & YEAST | | 12:25 AM | | procedure are in the | | | | PDT | | results section. | + +--------+ + + + | BG-LAC,POC ISTAT | Urgent | 09/13/2018 | | Results for this | | | | 9:17 PM | | procedure are in the | | | | PDT | | results section. | + +--------+ + + + | RAINBOW HOLD TUBE - | Urgent | 09/13/2018 | | | | RED TOP | | 9:08 PM | | | | | | PDT | | | + +--------+ + + + | RAINBOW HOLD TUBE - | Urgent | 09/13/2018 | | | | GREEN TOP | | 9:08 PM | | | | | | PDT | | | + +--------+ + + + | RAINBOW HOLD TUBE - | Urgent | 09/13/2018 | | | | BLUE TOP | | 9:08 PM | | | | | | PDT | | | + +--------+ + + + | RAINBOW HOLD, CORE | Urgent | 09/13/2018 | | Results for this | | PANEL | | 9:08 PM | | procedure are in the | | | | PDT | | results section. | + +--------+ + + + | BLOOD BANK HOLD TUBE | Urgent | 09/13/2018 | | Results for this | | - DON | | 9:08 PM | | procedure are in the | | | | PDT | | results section. | | T PROCESS | | | | | + +--------+ + + + | CBC AND AUTO DIFF | Urgent | 09/13/2018 | | Results for this | | | | 8:43 PM | | procedure are in the | | | | PDT | | results section. | + +--------+ + + + | CBC, WITH | Urgent | 09/13/2018 | | Results for this | | DIFFERENTIAL | | 8:43 PM | | procedure are in the | | | | PDT | | results section. | + +--------+ + + + | COMPLETE METABOLIC | Urgent | 09/13/2018 | | Results for this | | SET | | 8:43 PM | | procedure are in the | | (NA,K,CL,CO2,BUN,CRE | | PDT | | results section. | | AT,GLUC,CA,AST,ALT,B | | | | | | EMILIANO TOTAL,ALK | | | | | | PHOS,ALB,PROT TOTAL) | | | | | + +--------+ + + + | ED INFORMATION | Routin | 09/13/2018 | | Results for this | | EXCHANGE | e | 8:24 PM | | procedure are in the | | | | PDT | | results section. | + +--------+ + + + documented in this encounter Results OPERATION RECORD (09/22/2018 11:27 AM PDT) + + | Procedure Note | + + | Ata White MD - 09/22/2018 11:27 AM PDT Date of Service: 09/19/2018 Attending | | Surgeon:Ata White MD Addendum: This woman had Integra used to reconstruct her | | scalp. The size of the Integra was 14 x 5 cm. This was laid into the wound and secured | | with genoveva and then a dressing applied to it.MELI Hansen/KATHERINED: 09/27/2018 | | 13:25:22DT: 09/27/2018 13:31:49Job #: [id number] | | | |Addendum: This woman had Integra used to reconstruct her scalp. The size of the Integra w as 14 x 5 cm. This was laid into the wound and secured with genoveva and then a dressing columba lied to it. | | | | | | | |Ata White MD | |CHANDRIKA/NGUYEN | | | | | | /[id number] | + + OPERATION RECORD (09/22/2018 11:27 AM PDT) + + | Procedure Note | + + | Ata White MD - 09/22/2018 11:27 AM PDT Date of Service: 09/19/2018 Attending | | Surgeon:Ata White MD Planisher(s):Augusto Shaikh MD.Preoperative Diagnosis: | | Partially necrotic latissimus dorsi flap.Operation Performed: Composite resection of | | composite muscle and split-thickness skin graft, approximately 75 sq cm; rotation | | advancement flap of scalp 14 x 8 cm and closure with Integra of the posterior scalp | | wound after undermining of approximately 14 x 5 cm.Operative Note: This woman had an | | issue with her scalp. Latissimus flap was viable proximally and distally, but in the | | middle part over the mesh, it is nonviable. We needed to fix this, and so she was | | brought to the operating room to be explored and for her surgical procedure. She was | | brought into the operating room. General anesthesia was induced and she was | | orotracheally intubated, prepped and draped in the usual manner. She had the wound | | explored, and we removed all of the necrotic lat. Most of the center part was . | | The proximal portion was good. Distal portion and parts under the scalp were good. | | This exposed a fair amount of the mesh. We then elevated a 14 x 8 cm scalp flap. We | | incised through skin and subcutaneous tissue, and above the galea, elevated the flap | | posteriorly. Once we had done this, we were able to then remove the entire mesh, which | | was done by the neurosurgical service, and things were irrigated, cultures were taken, | | and things were cleaned up. We then rotated the scalp flap over and secured it to the | | skin using 3-0 nylon sutures in a horizontal mattress fashion. I could not use | | subcutaneous skin sutures because of the friability of the tissue and I needed to get | | good closure. There was no tension on the closure, and we completely covered the entire | | defect. We were now left with an area of bone posteriorly with good periosteum. We | | freed up posteriorly below the galea, but above the periosteum posteriorly 14 x 5 cm to | | undermine and did a galeatomy to allow for advancement of the scalp. This did close the | | defect a fair bit, and we then laid in Integra and sutured it in and packing was | | applied over top of it. This allowed for excellent closure of the wound. She was woken | | up, extubated, sent to recovery room.MELI Hansen/SWAPNILLDD: 09/26/2018 12:12:19DT: | | 09/26/2018 12:30:21Job #: [id number] | |Ata White MD | |MW/MODL | | | | | | /[id number] | + + CBC (HEMOGRAM) ONLY (09/22/2018 7:08 AM PDT) + + + + + + | Component | Value | Ref Range | Performed | Pathologist | | | | | At | Signature | + + + + + + | WHITE CELL | 8.42 | 3.50 - 10.80 | [facility] | [...] + + + + | HEMOGLOBIN | 8.8 (L) | 12.0 - 16.0 | [facility] [...] + + + + | MCV | 96.2 | 80.0 - 100.0 fL | [facility] | | | | | | LABORATORY | | | | | | SERVICES, | | | | | | CORE | | + + + + + + | MCHC | 31.2 (L) | 32.0 - 36.0 | [facility] | | | | | g/dL | LABORATORY | | | | | | SERVICES, | | | | | | CORE | | + + + + + + | RDW SD | 48.9 (H) | 35.1 - 46.3 fL | [facility] | | | | | | LABORATORY | | | | | | SERVICES, | | | | | | CORE | | + + + + + + | PLATELET | 281 | 150 - 400 K/cu | [facility] [...] [facility] | [address] | [place] [address] | | | SERVICES, CORE | [address] | | | + + + + + BASIC METABOLIC SET (NA, K, CL, TCO2, BUN, CR, GLU, CA) (09/22/2018 7:08 AM PDT) + +---------+ + + + | Component | Value | Ref Range | Performed | Pathologist | | | | | At | Signature | + +---------+ + + + | GLUCOSE, | 94 | 70 - 99 mg/dL | [facility] | | | PLASMA | | | LABORATORY | | | (LAB) | | | SERVICES, | | | | | | CORE | | + +---------+ + + + | BUN, PLASMA | 14 | 6 - 20 mg/dL | [facility] | | | (LAB) | | | LABORATORY | | | | | | SERVICES, | | | | | | CORE | | + +---------+ + + + | CREATININE | 0.78 | 0.60 - 1.10 | [facility] | | | PLASMA | | mg/dL | LABORATORY | | | (LAB) | | | SERVICES, | | | | | | CORE | | + +---------+ + + + | EGFR | >60 | >60 mL/min | [facility] | | | - | | | LABORATORY | | | GUAMANIAN | | | SERVICES, | | | | | | CORE | | + +---------+ + + + | EGFR NON | >60 | >60 mL/min | [facility] | | | -[facility] | | | LABORATORY | | | RICAN | | | SERVICES, | | | | | | CORE | | + +---------+ + + + | SODIUM, | 140 [...] | | | paraplegics, or other muscle-wasting diseases | | + + + + + + + + | Performing | Address | City/State/Zipcode | Phone Number | | Organization | | | | + + + + + | [facility] | [address] | [place] [address] | | | SERVICES, RYAN | [address] | | | + + + + + PROCEDURE NOTE (09/21/2018 8:41 PM PDT)CBC (HEMOGRAM) ONLY (09/21/2018 5:31 AM PDT) + + + + + + | Component | Value | Ref Range | Performed | Pathologist | | | | | At | Signature | + + + + + + | WHITE CELL | 11.01 (H) | 3.50 - 10.80 | [facility] | | | COUNT | | K/cu mm | LABORATORY | | | | | | SERVICES, | | | | | | CORE | | + + + + + + | RED CELL | 2.62 (L) | 4.00 - 5.20 | [facility] | | | COUNT | | M/cu mm | LABORATORY | | | | | | SERVICES, | | | | | | CORE | | + + + + + + | HEMOGLOBIN | 8.0 (L) | 12.0 - 16.0 | [facility] [...] + + + + | MCV | 97.3 | 80.0 - 100.0 fL | [facility] | | | | | | LABORATORY | | | | | | SERVICES, | | | | | | CORE | | + + + + + + | MCHC | 31.4 (L) | 32.0 - 36.0 | [facility] [...] + + + + | PLATELET | 245 | 150 - 400 K/cu | [facility] | | | COUNT | | mm | LABORATORY | | | | | | SERVICES, | | | | | | CORE | | + + + + + + | MPV | 9.8 | 9.7 - 12.3 fL | [facility] [...] | + + + + + | [facility] | [address] | [place] [address] | | | SERVICES, CORE | [address] | | | + + + + + PHOSPHORUS, PLASMA (09/21/2018 5:31 AM PDT) + +-------+ + + + | Component | Value | Ref Range | Performed | Pathologist | | | | | At | Signature | + +-------+ + + + | PHOSPHORUS, | 2.7 [...] [facility] | [address] | [place] [address] | | | RYAN ORNELAS | [address] | | | + + + + + MAGNESIUM, PLASMA (09/21/2018 5:31 AM PDT) + +-------+ + + + | Component | Value | Ref Range | Performed | Pathologist | | | | | At | Signature | + +-------+ + + + | MAGNESIUM,P | 2.1 | 1.6 - 2.6 mg/dL | [facility] [...] + | [facility] | [address] | [place] [address] | | | SERVICES, CORE | [address] | | | + + + + + BASIC METABOLIC SET (NA, K, CL, TCO2, BUN, CR, GLU, CA) (09/21/2018 5:31 AM PDT) + +---------+ + + + | Component | Value | Ref Range | Performed | Pathologist | | | | | At | Signature | + +---------+ + + + | GLUCOSE, | 97 | 70 - 99 mg/dL | [facility] [...] +---------+ + + + | CREATININE | 0.76 | 0.60 - 1.10 | [facility] | | | PLASMA | | mg/dL | LABORATORY | | | (LAB) | | | SERVICES, | | | | | | CORE | | + +---------+ + + + | EGFR | >60 | >60 mL/min | [facility] | | | - | | | LABORATORY | | | GUAMANIAN | | | SERVICES, | | | | | | CORE | | + +---------+ + + + | EGFR NON | >60 | >60 mL/min | [facility] | | | -[facility] | | | LABORATORY | | | RICAN | | | SERVICES, | | | | | | CORE | | + +---------+ + + + | SODIUM, | 144 | 136 - 145 | [facility] | [...] +---------+ + + + | CALCIUM, | 7.9 [...] equation recommended by the National | [facility] | | Kidney Disease Education Program. Estimated [...] | | | paraplegics, or other muscle-wasting diseases | | + + + + + + + + | Performing | Address | City/State/Zipcode | Phone Number | | Organization | | | | + + + + + | [facility] | [address] | [place] [address] | | | JOHNSON, RYAN | [address] | | | + + + + + CULTURE, BLOOD BACTI & YEAST [facility] (09/20/2018 6:47 AM PDT) + + + + + [...] [facility] | [address] | [place] [address] | | | SERVICES, CORE | [address] | | | + + + + + CBC (HEMOGRAM) ONLY (09/20/2018 6:47 AM PDT) + + + + + + | Component | Value | Ref Range | Performed | Pathologist | | | | | At | Signature | + + + + + + | WHITE CELL | 14.08 (H) | 3.50 - 10.80 | [facility] | | | COUNT | | K/cu mm | LABORATORY | | | | | | SERVICES, | | | | | | CORE | | + + + + + + | RED CELL | 3.02 (L) | 4.00 - 5.20 | [facility] [...] + + + + | HEMATOCRIT | 29.3 (L) | 36.0 - 46.0 % | [facility] | | | | | | LABORATORY | | | | | | SERVICES, | | | | | | CORE | | + + + + + + | MCV | 97.0 | 80.0 - 100.0 fL | [facility] | | | | | | LABORATORY | | | | | | SERVICES, | | | | | | CORE | | + + + + + + | MCHC | 31.1 (L) | 32.0 - 36.0 | [facility] | | | | | g/dL | LABORATORY | | | | | | SERVICES, | | | | | | CORE | | + + + + + + | RDW SD | 47.9 (H) | 35.1 - 46.3 fL | [facility] | | | | | | LABORATORY | | | | | | SERVICES, | | | | | | CORE | | + + + + + + | PLATELET | 251 | 150 - 400 K/cu | [facility] [...] [facility] | [address] | [place] [address] | | | SERVICES, CORE | [address] | | | + + + + + PHOSPHORUS, PLASMA (09/20/2018 6:47 AM PDT) + +-------+ + + + | Component | Value | Ref Range | Performed | Pathologist | | | | | At | Signature | + +-------+ + + + | PHOSPHORUS, | 3.9 [...] + + + + + | [facility] | [address] | [place] [address] | | | SERVICES, CORE | [address] | | | + + + + + MAGNESIUM, PLASMA (09/20/2018 6:47 AM PDT) + +-------+ + + + | Component | Value | Ref Range | Performed | Pathologist | | | | | At | Signature | + +-------+ + + + | MAGNESIUM,P | 2.0 | 1.6 - 2.6 mg/dL | [facility] [...] + + + + + | [facility] | [address] | [place] [address] | | | SERVICES, CORE | [address] | | | + + + + + BASIC METABOLIC SET (NA, K, CL, TCO2, BUN, CR, GLU, CA) (09/20/2018 6:47 AM PDT) + +---------+ + + + | Component | Value | Ref Range | Performed | Pathologist | | | | | At | Signature | + +---------+ + + + | GLUCOSE, | 128 (H) | 70 - 99 mg/dL | [...] +---------+ + + + | CREATININE | 0.76 | 0.60 - 1.10 | [facility] | | | PLASMA | | mg/dL | LABORATORY | | | (LAB) | | | SERVICES, | | | | | | CORE | | + +---------+ + + + | EGFR | >60 | >60 mL/min | [facility] | | | - | | | LABORATORY | | | GUAMANIAN | | | SERVICES, | | | [...] +---------+ + + + | POTASSIUM, | 4.8 | 3.4 - 5.0 | [facility] | [...] MDRD equation recommended by the National | [facility] | | Kidney Disease Education Program. Estimated [...] | | | paraplegics, or other muscle-wasting diseases | | + + + + + + + + | Performing | Address | City/State/Zipcode | Phone Number | | Organization | | | | + + + + + | [facility] | [address] | [place] [address] | | | SERVICES, CORE | [address] | | | + + + + + OPERATION RECORD (09/19/2018 5:44 PM PDT) + + + | Narrative | Performed At | + + + | Alfreda Mccollum MD 10/03/2018 3:27 PM Date of Procedure: | | | 09/19/18 Attending Surgeon: Alfreda Mccollum | | | Planisher(s): | | | Diana Richey MD, Dillan Bridges MD | | | Preoperative Diagnoses: 1. | | | nonviable lastissimus dorsi free tissue flap | | | Postoperative Diagnoses: 1. same Procedure: | | | 1. Wound wash out and removal of cranial hardware 2. | | | Debridement of wound Estimated Blood Loss: 50 mL. | | | Fluids: Please see anesthesia encounter. Specimens: epidural | | | phlegmon sent for culture Complications: None. Drains: | | | LAZARA drain Destination: Stable to PACU to cooper Findings: | | | Necrotic areas of previous lastissimus dorsi free tissue flap | | | Indication For Procedure: Indications For Procedure: Gloria | | | Marsha Adhikari is a 68 y.o. female evaluated by the neurosurgery | | | team for concerns for non-viable scalp flap with potential for | | | underlying infection of mesh cranioplasty. 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 She underwent synthes cranioplasty | | | (05/08/18) with rotational flap performed by Dr Ata White. She | | | represented with wound dehiscence managed with over sewing of the | | | wound by ENT (05/14-05/17). Unfortunately, Ms Adhikari again | | | presented for medical attention after her son noticed recurrent skin | | | opening with cranioplasty exposure. She was admitted to | | | neurosurgery service on 07/10 and underwent explant of her | | | cranioplasty and wound closure by ENT the following day. She was | | | discharged to home on 07/13. Ms Adhikari's surgical culture was | | | notable for growth of staph epidermidis. She underwent wound | | | debridement and right mesh cranioplasty on 08/03. She recovered well, | | | but later was noted to have foul odor from her wound at the end of | | | July, and she was re-admitted by the ENT service on 09/14 for | | | non-viable flap and concern for underlying infection. Therefore, she | | | was indicated for the above procedure. The indications, risks, | | | benefits and alternatives for the procedure were discussed. The | | | patient voiced understanding, and a signed consent form was placed | | | in the patient's chart. Description Of Procedure: The patient | | | was first identified in the preoperative area, and then brought to | | | the operative room on [facility]. General anesthesia was | | | induced by the neuroanesthesia team. The eyes were taped shut to | | | prevent corneal abrasion. The patient was placed in the supine | | | position, and all pressure points were carefully padded. The head | | | was secured in the horseshoe barrel filler head. The hair over the area was | | | clipped. The area was prepped and draped in the usual standard | | | sterile fashion. The planned incision was infiltrated with local | | | anesthetic containing epinephrine. The patient was administered | | | prophylactic antibiotics. At this time, time-out was performed, | | | and all team members were in agreement regarding the appropriate | | | patient, the appropriate procedure and the appropriate site, with | | | the appropriate imaging and equipment available. The ENT team | | | performed debridement of her necrotic free tissue flap and exposed | | | the existing cranial mesh plate. At this point, the neurosurgery | | | team removed the screws from the cranial mesh and lifted the plate | | | out. We irrigated copiously with saline containing bacitracin, and | | | debrided the phlegmon overlying the dural substiture using penfield | | | 1 and penfield 3. We also used sharp excision with tenotomy scissors | | | to remove any necrotic tissue we saw. When we felt the field was | | | cleaned of phlegmon and the plate had been removed in its entirety, | | | we turned the patient back over to the ENT team. The patient | | | was taken out of the horseshoe headholder. The patient was then | | | turned over to the anesthesiology team, and the patient was | | | extubated. The patient was then transferred to the PACU for | | | further recovery. All sponge, needle, and instrument counts were | | | correct at the end of this portion of the procedure x2. | | | Dillan Bridges MD Neurosurgery, PGY-2 Pager [phone] I | | | certify that I was present for and participated in the critical | | | parts of the procedure. I further certify that I was the principal | | | neurosurgeon for this procedure. Alfreda Mccollum MD | | | Clinical Instructor & Skull Base Fellow [id number] Department of | | | Neurological Surgery [facility], [place] | | | | | + + + CAPILLARY BLOOD GLUCOSE (NO CHG), POC (09/19/2018 3:56 PM PDT) + +---------+ + + + | Component | Value | Ref Range | Performed | Pathologist | | | | | At | Signature | + +---------+ + + + | BLOOD | 124 (H) | 70 - 99 mg/dL | [facility] - | [...] [facility] | [address] | [place], [place] | | | [facility] | [address] | [address] | | | TESTS | | | | + + + + + CULTURE, FUNGAL EXCEPT BLOOD, SKIN, HAIR, NAIL (09/19/2018 2:28 PM PDT) + + | Specimen | [...] + | [facility] | [address] | [place] [address] | | | [place] | | | | + + + + + CULTURE, TISSUE (09/19/2018 2:28 PM PDT) + + + + + + | Component | Value | Ref Range | Performed | Pathologist | | | | | At | Signature | + + + + + + | CULTURE | Escherichia coli (A) | | [facility] - | | | RESULT | | | [facility] - | | | | | | [place] | | + + + + + + + + | Specimen | + + | Tissue - Head | | structure (body | | structure) | + + + + + | Narrative | Performed At | + + + | Culture Report: Rare Escherichia coli No anaerobic organisms | [facility] - | | isolated Gram Stain: No squamous epithelial cells Rare | [facility] - | | polymorphonuclear cells No organisms seen | [place] | + + + + + + + + | Organism | Antibiotic | Method | Susceptibility | + + + + + | Escherichia coli | Ampicillin | SUSCEPTIBILITY-GRANT | Sensitive | + + + + + | Escherichia coli | Cefazolin | SUSCEPTIBILITY-GRANT | Sensitive | + + + + + | Escherichia coli | Ciprofloxacin | SUSCEPTIBILITY-GRANT | Sensitive | + + + + + | Escherichia coli | Gentamicin | SUSCEPTIBILITY-GRANT | Sensitive | + + + + + | Escherichia coli | Piperacillin/Tazobac | SUSCEPTIBILITY-GRANT | Sensitive | | | johnson | | | + + + + + | Escherichia coli | Tobramycin | SUSCEPTIBILITY-GRANT | Sensitive | + + + + + | Escherichia coli | Trimethoprim/Sulfa | SUSCEPTIBILITY-GRANT | Sensitive | + + + + + + + + + + | Performing | Address | City/State/Zipcode | Phone Number | | Organization | | | | + + + + + | [facility] | [address] | [place] [address] | | | [place] | | | | + + + + + CULTURE, AFB (ALL SPEC TYPES EXCEPT BLOOD) (09/19/2018 2:28 PM PDT) + + | Specimen | [...] + | [facility] | [address] | [place] [address] | | | [place] | | | | + + + + + CULTURE, FUNGAL EXCEPT BLOOD, SKIN, HAIR, NAIL (09/19/2018 2:12 PM PDT) + + | Specimen | + + | Swab - Head | | structure (body | [...] + | [facility] - | [address] | [place] [address] | | | [place] | | | | + + + + + CULTURE, WOUND DEEP W/ ANAEROBE (09/19/2018 2:12 PM PDT) + + + + + + | Component | Value | Ref Range | Performed | Pathologist | | | | | At | Signature | + + + + + + | CULTURE | Escherichia coli (A) | | [facility] - | | | RESULT | | | [facility] - | | | | | | [place] | | + + + + + + + + | Specimen | + + | Swab - Head | | structure (body | | structure) | + + + + + | Narrative | Performed At | + + + | Culture Report: 1+ Escherichia coli No anaerobic organisms | [facility] - | | isolated Gram Stain: No squamous epithelial cells No | [facility] - | | polymorphonuclear cells No organisms seen | [place] | + + + + + + + + | Organism | Antibiotic | Method | Susceptibility | + + + + + | Escherichia coli | Ampicillin | SUSCEPTIBILITY-GRANT | Sensitive | + + + + + | Escherichia coli | Cefazolin | SUSCEPTIBILITY-GRANT | Sensitive | + + + + + | Escherichia coli | Ciprofloxacin | SUSCEPTIBILITY-GRANT | Sensitive | + + + + + | Escherichia coli | Gentamicin | SUSCEPTIBILITY-GRANT | Sensitive | + + + + + | Escherichia coli | Piperacillin/Tazobac | SUSCEPTIBILITY-GRANT | Sensitive | | | johnson | | | + + + + + | Escherichia coli | Tobramycin | SUSCEPTIBILITY-GRANT | Sensitive | + + + + + | Escherichia coli | Trimethoprim/Sulfa | SUSCEPTIBILITY-GRANT | Sensitive | + + + + + + + + + + | Performing | Address | City/State/Zipcode | Phone Number | | Organization | | | | + + + + + | [facility] - | [address] | [place] [address] | | | [place] | | | | + + + + + CULTURE, AFB (ALL SPEC TYPES EXCEPT BLOOD) (09/19/2018 2:12 PM PDT) + + | Specimen | + + | Swab - Head | | structure (body | | structure) | + + + + + | Narrative | Performed At | + + + | Culture Report: No acid fast bacteria isolated at 6 weeks. AFB | [facility] | | Smear: AFB not detected | [facility] | | | [facility] | + + + + + + + + | Performing | Address | City/State/Zipcode | Phone Number | | Organization | | | | + + + + + | [facility] | [address] | [place] [address] | | | [place] | | | | + + + + + 12 LEAD ECG (09/19/2018 11:38 AM PDT) + + + + + + | Component | Value | Ref Range | Performed | Pathologist | | | | | At | Signature | + + + + + + | VENTRICULAR | 66 | bpm | [facility] | | | RATE | | | OF | | | | | | CARDIOLOGY | | + + + + + + | ATRIAL RATE | 67 | ms | [facility] | | | | | | OF | | | | | | CARDIOLOGY | | + + + + + + | P-R | 172 | ms | [facility] | | | INTERVAL | | | OF | | | | | | CARDIOLOGY | | + + + + + + | P AXIS | 64 | deg | [facility] | | | | | | OF | | | | | | CARDIOLOGY | | + + + + + + | QRS | 92 | ms | [facility] | | | DURATION | | | OF | | | | | | CARDIOLOGY | | + + + + + + | QT | 437 | ms | [facility] | | | | | | OF | | | | | | CARDIOLOGY | | + + + + + + | QTC-WHITNEYTT | 460 | ms | [facility] | | | | | | OF | | | | | | CARDIOLOGY | | + + + + + + | R AXIS | -44 | deg | [facility] | | | | | | OF | | | | | | CARDIOLOGY | | + + + + + + | T AXIS | 118 | deg | [facility] | | | | | | OF | | | | | | CARDIOLOGY | | + + + + + + | ECG | Sinus rhythm | | [facility] | | | IMPRESSION | | | OF | | | | | | CARDIOLOGY | | + + + + + + | ECG | Borderline left axis | | [facility] | | | IMPRESSION | deviation | | OF | | | | [...] DEPT | | | IMPRESSION | by: TESHA HARRISON | | OF | | | | 09-19-2018 14:01:23 | | CARDIOLOGY | | + + [...] + + + + + | [facility] | [address] | [place], [place] | | | CARDIOLOGY | [address] | [address] | | + + + + + CAPILLARY BLOOD GLUCOSE (NO CHG), POC (09/19/2018 11:36 AM PDT) + +-------+ + + + | Component | Value | Ref Range | Performed | Pathologist | | | | | At | Signature | + +-------+ + + + | BLOOD | 94 | 70 - 99 mg/dL | [facility] - | [...] + | [facility] | [address] | [place], [place] | | | [facility] | [address] | [address] | | | TESTS | | | | + + + + + CULTURE, BLOOD BACTI & YEAST [facility] (09/19/2018 6:04 AM PDT) + + + + + [...] Specimen | + + | Blood - Antecubital | | region structure | | (body structure) | + + + + + + + | Performing | Address | City/State/Zipcode | Phone Number | | Organization | | | | + + + + + | [facility] | [address] | [place] [address] | | | SERVICES, RYAN | [address] | | | + + + + + BASIC METABOLIC SET (NA, K, CL, TCO2, BUN, CR, GLU, CA) (09/19/2018 6:04 AM PDT) + +---------+ + + + | Component | Value | Ref Range | Performed | Pathologist | | | | | At | Signature | + +---------+ + + + | GLUCOSE, | 94 | 70 - 99 mg/dL | [facility] [...] +---------+ + + + | CREATININE | 0.86 | 0.60 - 1.10 | [facility] | | | PLASMA | | mg/dL | LABORATORY | | | (LAB) | | | SERVICES, | | | | | | CORE | | + +---------+ + + + | EGFR | >60 | >60 mL/min | [facility] | | | - | | | LABORATORY | | | GUAMANIAN | | | SERVICES, | | | [...] +---------+ + + + | CALCIUM, | 8.8 [...] MDRD equation recommended by the National | [facility] | | Kidney Disease Education Program. Estimated [...] | | | paraplegics, or other muscle-wasting diseases | | + + + + + + + + | Performing | Address | City/State/Zipcode | Phone Number | | Organization | | | | + + + + + | [facility] | [address] | [place] [address] | | | SERVICES, CORE | [address] | | | + + + + + CARDIOLOGY (09/19/2018 12:00 AM PDT) + + + | Narrative | Performed At | + + + | | | + + + CBC (HEMOGRAM) ONLY (09/18/2018 2:36 PM PDT) + + + + + + | Component | Value | Ref Range | Performed | Pathologist | | | | | At | Signature | + + + + + + | WHITE CELL | 8.47 | 3.50 - 10.80 | [facility] | | | COUNT | | K/cu mm | LABORATORY | | | | | | SERVICES, | | | | | | CORE | | + + + + + + | RED CELL | 3.80 (L) | 4.00 - 5.20 | [facility] | | | COUNT | | M/cu mm | LABORATORY | | | | | | SERVICES, | | | | | | CORE | | + + + + + + | HEMOGLOBIN | 11.5 (L) | 12.0 - 16.0 | [facility] | | | | | g/dL | LABORATORY | | | | | | SERVICES, | | | | | | CORE | | + + + + + + | HEMATOCRIT | 36.8 | 36.0 - 46.0 % | [facility] | | | | | | LABORATORY | | | | | | SERVICES, | | | | | | CORE | | + + + + + + | MCV | 96.8 | 80.0 - 100.0 fL | [facility] | | | | | | LABORATORY | | | | | | SERVICES, | | | | | | CORE | | + + + + + + | MCHC | 31.3 (L) | 32.0 - 36.0 | [facility] | | | | | g/dL | LABORATORY | | | | | | SERVICES, | | | | | | CORE | | + + + + + + | RDW SD | 48.4 (H) | 35.1 - 46.3 fL | [facility] | | | | | | LABORATORY | | | | | | SERVICES, | | | | | | CORE | | + + + + + + | PLATELET | 307 | 150 - 400 K/cu | [facility] | | | COUNT | | mm | LABORATORY | | | | | | SERVICES, | | | | | | CORE | | + + + + + + | MPV | 9.7 | 9.7 - 12.3 fL | [facility] [...] | + + + + + | [facility] | [address] | [place] [address] | | | SERVICES, RYAN | [address] | | | + + + + + ANTIBODY SCREEN (09/18/2018 11:24 AM PDT) + + + + + [...] [facility] | [address] | [place] [address] | | | SERVICES, | [address] | | | | TRANSFUSION MEDICINE | | | | + + + + + ABO & RH TYPE (09/18/2018 11:24 AM PDT) + + + + + [...] | + + + + + | [facility] | [address] | [place] [address] | | | SERVICES, | [address] | | | | TRANSFUSION MEDICINE | | | | + + + + + INR (09/18/2018 11:24 AM PDT) + +-------+ + + + | Component | Value | Ref Range | Performed | Pathologist | | | | | At | Signature | + +-------+ + + + | INR | 1.02 | 0.90 - 1.20 INR | [facility] [...] | + + + + + | [facility] | [address] | [place] [address] | | | SERVICES, CORE | [address] | | | + + + + + MAGNESIUM, PLASMA (09/18/2018 9:18 AM PDT) + +-------+ + + + | Component | Value | Ref Range | Performed | Pathologist | | | | | At | Signature | + +-------+ + + + | MAGNESIUM,P | 2.2 | 1.6 - 2.6 mg/dL | [facility] [...] + + | Please draw vancomycin trough prior to the morning dose, level | [facility] | | ordered for 09:30 09/18/18 | LABORATORY | | | JOHNSON, CORE | + + + + + + + + | Performing | Address | City/State/Zipcode | Phone Number | | Organization | | | | + + + + + | [facility] | [address] | [place] [address] | | | SERVICES, CORE | [address] | | | + + + + + RENAL FUNCTION SET (NA,K,CL,CO2,BUN,CREAT,GLUC,CA,PHOS,ALB ) (09/18/2018 9:18 AM PDT) + +---------+ + + + [...] +---------+ + + + | CREATININE | 0.86 | 0.60 - 1.10 | [facility] | | | PLASMA | | mg/dL | LABORATORY | | | (LAB) | | | SERVICES, | | | | | | CORE | | + +---------+ + + + | EGFR | >60 | >60 mL/min | [facility] | | | - | | | LABORATORY | | | GUAMANIAN | | | SERVICES, | | | [...] +---------+ + + + | CHLORIDE, | 112 (H) | 97 - 108 mmol/L | [...] +---------+ + + + | CALCIUM, | 8.8 [...] +---------+ + + + | PHOSPHORUS, | 4.0 | 2.4 - 4.7 mg/dL | [facility] [...] + + | Please draw vancomycin trough prior to the morning dose, level | [facility] | | ordered for 09:30 09/18/18 GFR is estimated using the MDRD equation | LABORATORY | | recommended by the National Kidney Disease Education Program. | SERVICES, CORE | | Estimated GFR Interpretive Information: <60 mL/min/1.73 sq m | | | Chronic Kidney Disease <15 mL/min/1.73 sq m | | | Kidney Failure Estimated GFR greater than 60 mL/min/1.73 sq | | | m is of limited clinical value. The MDRD equation is not valid in the | | | following situations: - Patients under 18 years of age - Severe | | | malnutrition or obesity - Vegetarian diet - Rapidly changing kidney | | | function - Amputees, paraplegics, or other muscle-wasting diseases | | + + + + + + + + | Performing | Address | City/State/Zipcode | Phone Number | | Organization | | | | + + + + + | [facility] | [address] | [place] [address] | | | SERVICES, CORE | [address] | | | + + + + + VANCOMYCIN, TROUGH (09/18/2018 9:18 AM PDT) + +-------+ + + + | Component | Value | Ref Range | Performed | Pathologist | | | | | At | Signature | + +-------+ + + + | VANCOMYCIN, | 14.7 | 10.0 - 20.0 | [facility] | [...] + + | Please draw vancomycin trough prior to the morning dose, level | [facility] | | ordered for 09:30 09/18/18 | LABORATORY | | | SERVICES, CORE | + + + + + + + + | Performing | Address | City/State/Zipcode | Phone Number | | Organization | | | | + + + + + | [facility] | [address] | [place] [address] | | | SERVICES, CORE | [address] | | | + + + + + CULTURE, BLOOD BACTI & YEAST MICHELLE (09/18/2018 5:35 AM PDT) + + + + + [...] | + + + + + | [facility] | [address] | [place] [address] | | | SERVICES, CORE | [address] | | | + + + + + CULTURE, BLOOD BACTI & YEAST MICHELLE (09/17/2018 9:19 AM PDT) + + + + + [...] + + + + + | [facility] | [address] | [place] [address] | | | SERVICES, CORE | [address] | | | + + + + + MAGNESIUM, PLASMA (09/17/2018 8:10 AM PDT) + +-------+ + + + | Component | Value | Ref Range | Performed | Pathologist | | | | | At | Signature | + +-------+ + + + | MAGNESIUM,P | 2.5 | 1.6 - 2.6 mg/dL | [facility] | | | LASMA | | | [...] + + + + + | [facility] | [address] | [place] [address] | | | SERVICES, CORE | [address] | | | + + + + + RENAL FUNCTION SET (NA,K,CL,CO2,BUN,CREAT,GLUC,CA,PHOS,ALB ) (09/17/2018 8:10 AM PDT) + +---------+ + + + [...] +---------+ + + + | CREATININE | 0.78 | 0.60 - 1.10 | [facility] | | | PLASMA | | mg/dL | LABORATORY | | | (LAB) | | | SERVICES, | | | | | | CORE | | + +---------+ + + + | EGFR | >60 | >60 mL/min | [facility] | | | - | | | LABORATORY | | | GU[facility]ANIAN | | | SERVICES, | | | [...] +---------+ + + + | CHLORIDE, | 112 (H) | 97 - 108 mmol/L | [...] +---------+ + + + | ANION | 6 | 4 - 11 mmol/L [...] equation recommended by the National | [facility] | | Kidney Disease Education Program. Estimated [...] | | | paraplegics, or other muscle-wasting diseases | | + + + + + + + + | Performing | Address | City/State/Zipcode | Phone Number | | Organization | | | | + + + + + | [facility] | [address] | [place] [address] | | | SERVICES, CORE | [address] | | | + + + + + MAGNESIUM, PLASMA (09/16/2018 9:24 AM PDT) + +-------+ + + + | Component | Value | Ref Range | Performed | Pathologist | | | | | At | Signature | + +-------+ + + + | MAGNESIUM,P | 2.4 | 1.6 - 2.6 mg/dL | [facility] | | | LASMA | | | LABORATORY | | | | | | SERVICES, | | | | | | CORE | | + +-------+ + + + + + | Specimen | + + | Blood - Blood | | (substance) | + + + + + | Narrative | Performed At | + + + | Please draw a vancomycin trough prior to the next dose, level | [facility] | | ordered for 09:30 09/16/18 | LABORATORY | | | SERVICES, CORE | + + + + + + + + | Performing | Address | City/State/Zipcode | Phone Number | | Organization | | | | + + + + + | [facility] | [address] | [place] [address] | | | SERVICES, CORE | [address] | | | + + + + + RENAL FUNCTION SET (NA,K,CL,CO2,BUN,CREAT,GLUC,CA,PHOS,ALB ) (09/16/2018 9:24 AM PDT) + +---------+ + + + | Component | Value | Ref Range | Performed | Pathologist | | | | | At | Signature | + +---------+ + + + | GLUCOSE, | 88 | 70 - 99 mg/dL | [facility] | | | PLASMA | | | LABORATORY | | | (LAB) | | | SERVICES, | | | | | | CORE | | + +---------+ + + + | BUN, PLASMA | 15 | 6 - 20 mg/dL | [facility] | | | (LAB) | | | LABORATORY | | | | | | SERVICES, | | | | | | CORE | | + +---------+ + + + | CREATININE | 0.78 | 0.60 - 1.10 | [facility] | | | PLASMA | | mg/dL | LABORATORY | | | (LAB) | | | SERVICES, | | | | | | CORE | | + +---------+ + + + | EGFR | >60 | >60 mL/min | [facility] | | | - | | | LABORATORY | | | GUAMANIAN | | | SERVICES, | | | [...] +---------+ + + + | CALCIUM(ALB | 9.0 | 8.6 - 10.2 | [facility] | [...] +---------+ + + + | PHOSPHORUS, | 3.7 [...] | + + + | Please draw a vancomycin trough prior to the next dose, level | [facility] | | ordered for 09:30 09/16/18 GFR is estimated using the MDRD equation | LABORATORY | | recommended by the National Kidney Disease Education Program. | SERVICES, CORE | | Estimated GFR Interpretive Information: <60 mL/min/1.73 sq m | | | Chronic Kidney Disease <15 mL/min/1.73 sq m | | | Kidney Failure Estimated GFR greater than 60 mL/min/1.73 sq | | | m is of limited clinical value. The MDRD equation is not valid in the | | | following situations: - Patients under 18 years of age - Severe | | | malnutrition or obesity - Vegetarian diet - Rapidly changing kidney | | | function - Amputees, paraplegics, or other muscle-wasting diseases | | + + + + + + + + | Performing | Address | City/State/Zipcode | Phone Number | | Organization | | | | + + + + + | [facility] | [address] | [place] [address] | | | SERVICES, CORE | [address] | | | + + + + + VANCOMYCIN, TROUGH (09/16/2018 9:24 AM PDT) + +-------+ + + + | Component | Value | Ref Range | Performed | Pathologist | | | | | At | Signature | + +-------+ + + + | VANCOMYCIN, | 16.0 | 10.0 - 20.0 | [facility] | [...] | + + + | Please draw a vancomycin trough prior to the next dose, level | [facility] | | ordered for 09:30 09/16/18 | LABORATORY | | | RYAN ORNELAS | + + + + + + + + | Performing | Address | City/State/Zipcode | Phone Number | | Organization | | | | + + + + + | [facility] | [address] | [place] [address] | | | SERVICESRYAN | [address] | | | + + + + + CBC AND AUTO DIFF (09/15/2018 6:57 AM PDT) + + + + + + | Component | Value | Ref Range | Performed | Pathologist | | | | | At | Signature | + + + + + + | WHITE CELL | 7.62 | 3.50 - 10.80 | [facility] | [...] + + + + | HEMOGLOBIN | 11.5 (L) | 12.0 - 16.0 | [facility] | | | | | g/dL | LABORATORY | | | | | | SERVICES, | | | | | | CORE | | + + + + + + | HEMATOCRIT | 36.6 | 36.0 - 46.0 % | [facility] | | | | | | LABORATORY | | | | | | SERVICES, | | | | | | CORE | | + + + + + + | MCV | 96.6 | 80.0 - 100.0 fL | [facility] | | | | | | LABORATORY | | | | | | SERVICES, | | | | | | CORE | | + + + + + + | MCHC | 31.4 (L) | 32.0 - 36.0 | [facility] | | | | | g/dL | LABORATORY | | | | | | SERVICES, | | | | | | CORE | | + + + + + + | RDW SD | 48.8 (H) | 35.1 - 46.3 fL | [facility] | | | | | | LABORATORY | | | | | | SERVICES, | | | | | | CORE | | + + + + + + | PLATELET | 307 | 150 - 400 K/cu | [facility] [...] + + + + | NEUTROPHIL | 59.7 | 50.0 - 70.0 % | [facility] | | | % | | | LABORATORY | | | | | | SERVICES, | | | | | | CORE | | + + + + + + | LYMPHOCYTE | 21.3 | 18.0 - 42.0 % | [facility] | | | % | | | LABORATORY | | | | | | SERVICES, | | | | | | CORE | | + + + + + + | MONOCYTE % | 13.4 (H) | 3.5 - 9.0 % | [facility] | | | | | | LABORATORY | | | | | | SERVICES, | | | | | | CORE | | + + + + + + | EOS % | 4.7 (H) | 1.0 - 3.0 % | [facility] | | | | | | LABORATORY | | | | | | SERVICES, | | | | | | CORE | | + + + + + + | BASO % | 0.5 | 0.0 - 2.0 % | [facility] | | | | | | LABORATORY | | | | | | SERVICES, | | | | | | CORE | | + + + + + + | IG% | 0.4Comment: Increased | 0.0 - 1.0 % | [...] + + + + | NEUTROPHIL | 4.55 | 1.80 - 7.70 | [facility] | | | # | | K/cu mm | LABORATORY | | | | | | SERVICES, | | | | | | CORE | | + + + + + + | LYMPHOCYTE | 1.62 | 1.00 - 4.80 | [facility] | | | # | | K/cu mm | LABORATORY | | | | | | SERVICES, | | | | | | CORE | | + + + + + + | MONOCYTE # | 1.02 (H) | 0.10 - 0.90 | [facility] | | | | | K/cu mm | LABORATORY | | | | | | SERVICES, | | | | | | CORE | | + + + + + + | EOS # | 0.36 | 0.00 - 0.50 | [facility] | | | | | K/cu mm | LABORATORY | | | | | | SERVICES, | | | | | | CORE | | + + + + + + | BASO # | 0.04 | 0.00 - 0.10 | [facility] | | | | | K/cu mm | LABORATORY | | | | | | SERVICES, | | | | | | CORE | | + + + + + + | IG# | 0.03 | 0.00 - 0.10 | [facility] | [...] immature granulocytes (IG) define a left shift. Immature | [facility] | | granulocytes (IG) are an automated count of metamyelocytes, myelocytes | LABORATORY | | and promyelocytes. Bands are not included in the IG count. Bands are | SERVICES, CORE | | included in the neutrophil count. | | + + + + + + + + | Performing | Address | City/State/Zipcode | Phone Number | | Organization | | | | + + + + + | [facility] | [address] | [place] [address] | | | SERVICES, CORE | [address] | | | + + + + + BASIC METABOLIC SET (NA, K, CL, TCO2, BUN, CR, GLU, CA) (09/15/2018 6:57 AM PDT) + +---------+ + + + | Component | Value | Ref Range | Performed | Pathologist | | | | | At | Signature | + +---------+ + + + | GLUCOSE, | 91 | 70 - 99 mg/dL | [facility] | | | PLASMA | | | LABORATORY | | | (LAB) | | | SERVICES, | | | | | | CORE | | + +---------+ + + + | BUN, PLASMA | 15 | 6 - 20 mg/dL | [facility] | | | (LAB) | | | LABORATORY | | | | | | SERVICES, | | | | | | CORE | | + +---------+ + + + | CREATININE | 0.85 | 0.60 - 1.10 | [facility] | | | PLASMA | | mg/dL | LABORATORY | | | (LAB) | | | SERVICES, | | | | | | CORE | | + +---------+ + + + | EGFR | >60 | >60 mL/min | [facility] | | | - | | | LABORATORY | | | GUAMANIAN | | | SERVICES, | | | | | | CORE | | + +---------+ + + + | EGFR NON | >60 | >60 mL/min | [facility] | | | -[facility] | | | LABORATORY | | | [facility] | | | SERVICES, | | | | | | CORE | | + +---------+ + + + | SODIUM, | 140 [...] +---------+ + + + | CALCIUM, | 8.6 [...] | | | paraplegics, or other muscle-wasting diseases | | + + + + + + + + | Performing | Address | City/State/Zipcode | Phone Number | | Organization | | | | + + + + + | [facility] | [address] | [place] [address] | | | JOHNSON, RYAN | [address] | | | + + + + + CT HEAD WWO CONTRAST (09/14/2018 3:04 PM PDT) + + | Specimen | + + | | + + + + + | Narrative | Performed At | + + + | EXAM: CT HEAD WITHOUT AND WITH CONTRAST HISTORY: Recent c/f TIA, | [facility] | | s/p re-placement of right mesh cranioplasty, wound debridement and | RADIOLOGY VOICE | | reconstruction with a latissimus dorsi free tissue flap on 08/03/18 | RECOGNITION 2 | | COMPARISON: Outside head CT 09/12/2018 TECHNIQUE: CT of the | | | head without and with iodine based intravenous contrast. FINDINGS: | | | Again seen are findings of right frontal craniotomy with mesh | | | cranioplasty and overlying scalp soft tissue graft. A peripherally | | | enhancing low-density fluid collection is noted both superficial and | | | deep to the mesh cranioplasty graft, which measures approximately 4.6 | | | x 3.1 x 1.8 cm in greatest axial dimension. Smooth pachymeningeal | | | enhancement is present underneath the right frontal mesh cranioplasty | | | graft. Multiple suprasellar aneurysm clips noted. | | | Encephalomalacia throughout much of the medial left frontal lobe and | | | to a lesser extent the medial right frontal lobe appears unchanged. A | | | few additional scattered white matter hypodensities are also | | | unchanged, likely reflecting chronic ischemic changes. | | | Encephalomalacia of the left caudate head, as before. No loss of | | | barahona-white matter differentiation to suggest acute infarction. | | | Ventricles appear unchanged in caliber. No abnormal enhancement in the | | | brain. No hydrocephalus, herniation or mass. Hypopneumatized right | | | mastoid again seen. IMPRESSION: Findings of right frontal | | | craniectomy with mesh cranioplasty and overlying scalp soft tissue | | | graft. Fluid collection with peripheral enhancement is noted abutting | | | the superficial and deep aspects of the mesh which is nonspecific and | | | could represent bland postoperative fluid, pseudomeningocele, or | | | infection/abscess. I have personally reviewed the images and, if | | | necessary, edited the report. I agree with the report as now | | | presented. Final signature: Brandon Snyder MD 09/14/2018 | | | 3:13 PM Preliminary: Brandon Snyder MD Dictation | | | initiated: Brandon Snyder MD 09/14/2018 3:04 PM | | + + + + + | Procedure Note | + + | Service Account, Radiant Res In Interface - 09/14/2018 3:14 PM PDT EXAM: CT HEAD | | WITHOUT AND WITH CONTRAST HISTORY: Recent c/f TIA, s/p re-placement of right mesh | | cranioplasty, wound debridement and reconstruction with a latissimus dorsi free tissue | | flap on 08/03/18 COMPARISON: Outside head CT 09/12/2018 TECHNIQUE: CT of the head | | without and with iodine based intravenous contrast. FINDINGS: Again seen are findings | | of right frontal craniotomy with mesh cranioplasty and overlying scalp soft tissue | | graft. A peripherally enhancing low-density fluid collection is noted both superficial | | and deep to the mesh cranioplasty graft, which measures approximately 4.6 x 3.1 x 1.8 cm | | in greatest axial dimension. Smooth pachymeningeal enhancement is present underneath | | the right frontal mesh cranioplasty graft. Multiple suprasellar aneurysm clips noted. | | Encephalomalacia throughout much of the medial left frontal lobe and to a lesser extent | | the medial right frontal lobe appears unchanged. A few additional scattered white matter | | hypodensities are also unchanged, likely reflecting chronic ischemic changes. | | Encephalomalacia of the left caudate head, as before. No loss of barahona-white matter | | differentiation to suggest acute infarction. Ventricles appear unchanged in caliber. No | | abnormal enhancement in the brain. No hydrocephalus, herniation or mass. Hypopneumatized | | right mastoid again seen. IMPRESSION: Findings of right frontal craniectomy with mesh | | cranioplasty and overlying scalp soft tissue graft. Fluid collection with peripheral | | enhancement is noted abutting the superficial and deep aspects of the mesh which is | | nonspecific and could represent bland postoperative fluid, pseudomeningocele, or | | infection/abscess. I have personally reviewed the images and, if necessary, edited the | | report. I agree with the report as now presented. Final signature: Brandon Snyder | | 09/14/2018 3:13 PM Preliminary: Brandon Snyder MD Dictation initiated: Brandon Snyder MD 09/14/2018 3:04 PM | | | |Final signature: Brandon Snyder MD 09/14/2018 3:13 PM | |Preliminary: Brandon Snyder MD | |Dictation initiated: Brandon Snyder MD 09/14/2018 3:04 PM | + + + +---------+ + + | Performing | Address | City/State/Zipcode | Phone Number | | Organization | | | | + +---------+ + + | [facility] | | | | | VOICE RECOGNITION 2 | | | | + +---------+ + + CULTURE, BLOOD BACTI & YEAST [facility] (09/14/2018 12:25 AM PDT) + + + + + + | Component | Value | Ref Range | Performed | Pathologist | | | | | At | Signature | + + + + + + | CULTURE | Staphylococcus | | [facility] | | | RESULT | epidermidis (AA) | | LABORATORY | | | | | | SERVICES, | | | | | | CORE | | + + + + + + | GRAM STAIN | Gram Positive Bacilli | | [facility] | | | | (AA) | | LABORATORY | | | | | | SERVICES, | | | | | | CORE | | + + + + + + | GRAM STAIN | Gram positive cocci in | | [facility] | | | | clusters (AA)Comment: | | LABORATORY | | | | This is an appended | | SERVICES, | | | | report. These results | | CORE | | | | have been appended to a | | | | | | previously final | | | | | | verified report. | | | | + + + + + + + + | Specimen | + + | Blood - Peripheral | | (qualifier value) | + + + + + | Narrative | Performed At | + + + | Growth in Aerobic Bottle - [facility] only. Growth in Anaerobic Bottle - | [facility] | | GPC and [facility]. Organism Identified by Molecular ID, to be confirmed by | LABORATORY | | culture. | SERVICES, CORE | + + + + + + + + | Performing | Address | City/State/Zipcode | Phone Number | | Organization | | | | + + + + + | [facility] | [address] | [place] [address] | | | JOHNSON, RYAN | [address] | | | + + + + + BLOOD CULTURE WORKUP (09/14/2018 12:25 AM PDT) + + + + + + | Component | Value | Ref Range | Performed | Pathologist | | | | | At | Signature | + + + + + + | CULTURE | Bacillus species, not B | | [facility] | | | RESULT | anthracis (A) | | [facility] - | | | | | | [place] | | + + + + + + | CULTURE | Coagulase negative | | [facility] - | | | RESULT | staphylococcus species | | [facility] - | | | | (A) | | [place] | | + + + + + + + + | Specimen | + + | Blood - Peripheral | | (qualifier value) | + + + + + | Narrative | Performed At | + + + | Culture Report: Bacillus species, not B. anthracis Coagulase | [facility] - | | negative Staphylococcus species Growth in Aerobic bottle Growth in | [facility] - | | Anaerobic bottle | [place] | + + + + + + + + | Performing | Address | City/State/Zipcode | Phone Number | | Organization | | | | + + + + + | [facility] | [address] | [place] [address] | | | [facility] | | | | + + + + + -YUNIER THOMSON (09/13/2018 9:17 PM PDT) + +--------+ + + + | Component | Value | Ref Range | Performed | Pathologist | | | | | At | Signature | + +--------+ + + + | TOTAL CO2 | 31 (H) | 23 - 29 mmol/L | [facility] - | | | DEON, POC | | | [facility] | | | | | | [facility] | | | | | | OF CARE | | | | | | TESTS | | + +--------+ + + + | PH VENOUS, | 7.42 | 7.35 - 7.45 | [facility] - | | | POC | | | [place] | | | | | | [facility] | | | | | | OF CARE | | | | | | TESTS | | + +--------+ + + + | PCO2 | 46 | 35 - 50 mmHg | [facility] - | | | VENOUS, POC | | | [place] | | | | | | [facility] | | | | | | OF CARE | | | | | | TESTS | | + +--------+ + + + | HCO3 | 30 (H) | 22 - 28 mmol/L | [facility] - | | | VENOUS, POC | | | [place] | | | | | | [facility] | | | | | | OF CARE | | | | | | TESTS | | + +--------+ + + + | PO2 VENOUS, | 41 | 30 - 55 mmHg | [facility] - | | | POC | | | [facility] | | | | | | MISTY, POINT | | | | | | OF CARE | | | | | | TESTS | | + +--------+ + + + | O2 SAT | 77 | 95 - 98 % | [facility] - | | | VENOUS, POC | | | [facility] | | | | | | MISTY POINT | | | | | | OF CARE | | | | | | TESTS | | + +--------+ + + + | LACTATE | 1.4 | 0.5 - 2.0 | [facility] - | | | VENOUS, POC | | mmol/L | [facility] | | | | | | MISTY, POINT | | | | | | OF CARE | | | | | | TESTS | | + +--------+ + + + | PAT TEMP | 98.2 | | [facility] - | | | VENOUS,POC | | | [facility] | | | | | | MISTY, POINT | | | | | | OF CARE | | | | | | TESTS | | + +--------+ + + + | BASE EXCESS | 5.0 | -2 - 3 mmol/L | [facility] - | | | YUNIER CHAVARRIA | | | [facility] | | | | | | [facility] | | | | | | OF CARE | | | | | | TESTS | | + +--------+ + + + + + | Specimen | + + | | + + + + + + + | Performing | Address | City/State/Zipcode | Phone Number | | Organization | | | | + + + + + | [facility] | [address] | [place], [place] | | | [facility] [place] OF [place] | [address] | [phone] | | | TESTS | | | | + + + + + RAINBOW HOLD TUBE - RED TOP (09/13/2018 9:08 PM PDT) + + | Specimen | + + | Blood - Blood | | (substance) | + + + + + + + | Performing | Address | City/State/Zipcode | Phone Number | | Organization | | | | + + + + + | [facility] | [address] | [place] [address] | | | SERVICES, RYAN | [address] | | | + + + + + RAINBOW HOLD TUBE - GREEN TOP (09/13/2018 9:08 PM PDT) + + | Specimen | + + | Blood - Blood | | (substance) | + + + + + + + | Performing | Address | City/State/Zipcode | Phone Number | | Organization | | | | + + + + + | [facility] | [address] | [place] [address] | | | SERVICES, CORE | [address] | | | + + + + + RAINBOW HOLD TUBE - BLUE TOP (09/13/2018 9:08 PM PDT) + + | Specimen | + + | Blood - Blood | | (substance) | + + + + + + + | Performing | Address | City/State/Zipcode | Phone Number | | Organization | | | | + + + + + | [facility] | [address] | [place] [address] | | | SERVICES, CORE | [address] | | | + + + + + BLOOD BANK HOLD TUBE - DON T PROCESS (09/13/2018 9:08 PM PDT) + + + + + + | Component | Value | Ref Range | Performed | Pathologist | | | | | At | Signature | + + + + + + | SPECIMEN | Sample received with | | [facility] | | | COLLECTED, | adeq label/volume to | | LABORATORY | | | HELD | process | | SERVICES, | | | | [...] | + + + + + | [email or web address] | [address] | [place] [address] | | | SERVICES, | [address] | | | | TRANSFUSION MEDICINE | | | | + + + + + CBC AND AUTO DIFF (09/13/2018 8:43 PM PDT) + + + + + + | Component | Value | Ref Range | Performed | Pathologist | | | | | At | Signature | + + + + + + | WHITE CELL | 8.76 | 3.50 - 10.80 | [facility] | | | COUNT | | K/cu mm | LABORATORY | | | | | | SERVICES, | | | | | | CORE | | + + + + + + | RED CELL | 4.01 | 4.00 - 5.20 | [facility] | | | COUNT | | M/cu mm | LABORATORY | | | | | | SERVICES, | | | | | | CORE | | + + + + + + | HEMOGLOBIN | 12.4 | 12.0 - 16.0 | [facility] | | | | | g/dL | LABORATORY | | | | | | SERVICES, | | | | | | CORE | | + + + + + + | HEMATOCRIT | 38.3 | 36.0 - 46.0 % | [facility] | | | | | | LABORATORY | | | | | | SERVICES, | | | | | | CORE | | + + + + + + | MCV | 95.5 | 80.0 - 100.0 fL | [facility] [...] + + + | RDW SD | 48.4 (H) | 35.1 - 46.3 fL | [facility] | | | | | | LABORATORY | | | | | | SERVICES, | | | | | | CORE | | + + + + + + | PLATELET | 348 | 150 - 400 K/cu | [facility] | | | COUNT | | mm | LABORATORY | | | | | | SERVICES, | | | | | | CORE | | + + + + + + | MPV | 9.8 | 9.7 - 12.3 fL | [facility] [...] + + + + | NEUTROPHIL | 65.8 | 50.0 - 70.0 % | [facility] | | | % | | | LABORATORY | | | | | | SERVICES, | | | | | | CORE | | + + + + + + | LYMPHOCYTE | 18.7 | 18.0 - 42.0 % | [facility] | | | % | | | LABORATORY | | | | | | SERVICES, | | | | | | CORE | | + + + + + + | MONOCYTE % | 10.4 (H) | 3.5 - 9.0 % | [facility] | | | | | | LABORATORY | | | | | | SERVICES, | | | | | | CORE | | + + + + + + | EOS % | 4.2 (H) | 1.0 - 3.0 % | [facility] | | | | | | LABORATORY | | | | | | SERVICES, | | | | | | CORE | | + + + + + + | BASO % | 0.6 | 0.0 - 2.0 % | [facility] [...] + + + + | NEUTROPHIL | 5.76 | 1.80 - 7.70 | [facility] | | | # | | K/cu mm | LABORATORY | | | | | | SERVICES, | | | | | | CORE | | + + + + + + | LYMPHOCYTE | 1.64 | 1.00 - 4.80 | [facility] | | | # | | K/cu mm | LABORATORY | | | | | | SERVICES, | | | | | | CORE | | + + + + + + | MONOCYTE # | 0.91 (H) | 0.10 - 0.90 | [facility] | | | | | K/cu mm | LABORATORY | | | | | | SERVICES, | | | | | | CORE | | + + + + + + | EOS # | 0.37 | 0.00 - 0.50 | [facility] | | | | | K/cu mm | LABORATORY | | | | | | SERVICES, | | | | | | CORE | | + + + + + + | BASO # | 0.05 | 0.00 - 0.10 | [facility] | | | | | K/cu mm | LABORATORY | | | | | | SERVICES, | | | | | | CORE | | + + + + + + | IG# | 0.03 | 0.00 - 0.10 | [facility] | [...] immature granulocytes (IG) define a left shift. Immature | [facility] | | granulocytes (IG) are an automated count of metamyelocytes, myelocytes | LABORATORY | | and promyelocytes. Bands are not included in the IG count. Bands are | SERVICES, CORE | | included in the neutrophil count. | | + + + + + + + + | Performing | Address | City/State/Zipcode | Phone Number | | Organization | | | | + + + + + | [facility] | [address] | [place] [address] | | | SERVICES, CORE | [address] | | | + + + + + COMPLETE METABOLIC SET (NA,K,CL,CO2,BUN,CREAT,GLUC,CA,AST,ALT,BILI TOTAL,ALK PHOS,ALB,PROT TOTAL) (09/13/2018 8:43 PM PDT) + +---------+ + + + | Component | Value | Ref Range | Performed | Pathologist | | | | | At | Signature | + +---------+ + + + | GLUCOSE, | 97 | 70 - 99 mg/dL | [facility] [...] | | | LABORATORY | | | GUAMANIAN | | | SERVICES, | | | [...] +---------+ + + + | POTASSIUM, | 4.7 | 3.4 - 5.0 | [facility] | [...] +---------+ + + + | CALCIUM, | 8.8 [...] +---------+ + + + | BILIRUBIN | 0.4 | 0.3 - 1.2 mg/dL | [facility] | | | TOTAL | | | LABORATORY | | | | | | SERVICES, | | | | | | CORE | | + +---------+ + + + | TOTAL | 7.8 | 6.4 - 8.2 g/dL | [facility] | | | PROTEIN, | | | LABORATORY | | | PLASMA | | | SERVICES, | | | (LAB) | | | CORE | | + +---------+ + + + | ALBUMIN, | 3.4 (L) | 3.5 - 4.7 g/dL | [facility] | | | PLASMA | | | LABORATORY | | | (LAB) | | | SERVICES, | | | | | | CORE | | + +---------+ + + + | ALK PHOS | 165 (H) | 53 - 141 U/L | [facility] | | | | | | LABORATORY | | | | | | SERVICES, | | | | | | CORE | | + +---------+ + + + | AST(SGOT) | 32 | <=41 U/L | [facility] | | | | | | LABORATORY | | | | | | SERVICES, | | | | | | CORE | | + +---------+ + + + | ALT (SGPT) | 25 | <=60 U/L | [facility] | | | | [...] +---------+ + + + | POTASSIUM | Sl Hemo | | [facility] | | | CMNT | | | LABORATORY | | | | | | SERVICES, | | | | | | CORE | | + +---------+ + + + | AST CMNT | Sl Hemo | | [facility] | | | | [...] + + | Sample hemolyzed. Results for LD, K, and AST may be inaccurate. | [facility] | | Refer to comment under test. GFR is estimated using the MDRD | LABORATORY | | equation recommended by the National Kidney Disease Education Program. | SERVICES, CORE | | Estimated GFR Interpretive Information: <60 mL/min/1.73 sq m | | | Chronic Kidney Disease <15 mL/min/1.73 sq m | | | Kidney Failure Estimated GFR greater than 60 mL/min/1.73 | | | sq m is of limited clinical value. The MDRD equation is not valid in | | | the following situations: - Patients under 18 years of age - Severe | | | malnutrition or obesity - Vegetarian diet - Rapidly changing kidney | | | function - Amputees, paraplegics, or other muscle-wasting diseases | | + + + + + + + + | Performing | Address | City/State/Zipcode | Phone Number | | Organization | | | | + + + + + | [facility] | [address] | [place] [address] | | | SERVICES, [place] | [address] | | | + + + + + ED INFORMATION EXCHANGE (09/13/2018 8:24 PM PDT) + + | Specimen | + + | | + + + + + | Narrative | Performed At | + + + | [facility]?NOTIFICATION?09/13/2018 20:23?GLORIA ADHIKARI?MRN: | [facility] | | [id number] Criteria Met 5 Visits In 12 Months Security | MEDICAL | | and Safety No recent Security Events currently on file ED Care | TECHNOLOGIES | | Guidelines There are currently no ED Care Guidelines for this | | | patient. Please check your facility's medical records system. | | | Prescription Drug Report (12 Mo.) PDMP query found no report. | | | E.D. Visit Count (12 mo.) Facility Visits [facility] and | | | [facility] 3 [facility] 2 Total 5 Note: | | | Visits indicate total known visits. Recent Emergency Department | | | Visit Summary Date Facility City State Type Diagnoses or Chief | | | Complaint Sep 13, 2018 [facility] [place] | | | [place] Emergency 10,800. post op comp Sep 12, 2018 [facility] | | | [place] Emergency Chief Complaint: POST OP ISSUE | | | July 10, 2018 [facility] [place] Emergency | | | 10,800. CRANIAL PLASTY ISSUE 18,400. Disruption of | | | external operation (surgical) wound, not elsewhere classified, | | | initial encounter 18,400. Other specified postprocedural states | | | May 14, 2018 [facility] [place] | | | Emergency 10,800. post-op complications, open head wound | | | post-op 18,400. Other acquired deformity of head Dec 02, | | | [address] [facility] [place] 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 Ear, Nose, | | | Throat 18,400. Disruption of external operation (surgical) | | | wound, not elsewhere classified, initial encounter July 10, 2018 | | | [facility] [place] Inpatient | | | 18,400. Other specified postprocedural states 18,400. | | | Disruption of external operation (surgical) wound, not elsewhere | | | classified, initial encounter May 14, 2018 [facility] and | | | [facility] [place] Neuro Surgery 18,400. Other | | | acquired deformity of head May 08, 2018 [facility] | | | [place] Neuro Surgery 18,400. Other acquired | | | deformity of head 18,400. 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 Nontraumatic subarachnoid hemorrhage, unspecified Dec 03, | | | 2018 [facility] [place] Neuro Surgery | | | 18,400. Other complications of procedures, not elsewhere | | | classified, initial encounter 18,400. Essential (primary) | | | hypertension 18,400. Nontraumatic subarachnoid hemorrhage, | | | unspecified 18,400. Other specified health status 18,400. | | | Other acquired deformity of head 18,400. 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 Constipation, unspecified Care | | | Team There are no care providers on record at this time. Collect[facility] | | | Portal This patient has registered at the [facility] | | | [place] [facility] For more information visit: | | | [email or web address] | | | [phone] PLEASE NOTE: 1. Any care recommendations and other | | | clinical information are provided as guidelines or for historical | | | purposes only, and providers should exercise their own clinical | | | judgment when providing care. 2. You may only use this | | | information for purposes of treatment, payment or health care | | | operations activities, and subject to the limitations of applicable | | | Collective Policies. 3. You should consult directly with the | | | organization that provided a care guideline or other clinical | | | history with any questions about additional information or accuracy | | | or completeness of information provided. ? 2019 [employer] | | | [employer]. - [email or web address] | | + + + + + | Procedure Note | + + | Service Account, Rtf Results Inbound - 09/13/2018 8:24 PM PDT Formatting of this | | note might be different from the original.[facility]LECT[facility]?NOTIFICATION?09/13/2018 | | 20:23?GLORIA ADHIKARI? Met 5 Visits In 12 MonthsSecurity and | | SafetyNo recent Security Events currently on fileED Care GuidelinesThere are currently | | no ED Care Guidelines for this patient. Please check your facility's medical records | | system.Prescription Drug Report (12 Mo.)PDMP query found no report.E.D. Visit Count (12 | | mo.)Facility Visits [facility] 3 [facility] 2 | | Total 5 Note: Visits indicate total known visits. Recent Emergency Department Visit | | SummaryDate Facility City State Type Diagnoses or Chief Complaint Sep 13, 2018 [place] | | [facility] [place] Emergency 10,800. post op comp Sep 12, 2018 | | [facility] [place] Emergency Chief Complaint: POST OP ISSUE July 10, 2018 | | [facility] [place] Emergency 10,800. CRANIAL PLASTY ISSUE | | 18,400. Disruption of external operation (surgical) wound, not elsewhere classified, | | initial encounter 18,400. Other specified postprocedural states May 14, 2018 [place] | | [facility] [place] Emergency 10,800. post-op complications, | | open head wound post-op 18,400. Other acquired deformity of head Dec 02, 2017 [facility] | | [facility] 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 Ear, Nose, Throat 18,400. Disruption of | | external operation (surgical) wound, not elsewhere classified, initial encounter June | | 2018 [facility] [place] Inpatient 18,400. Other | | specified postprocedural states 18,400. Disruption of external operation (surgical) | | wound, not elsewhere classified, initial encounter May 14, 2018 [facility] and | | [facility] [place] Neuro Surgery 18,400. Other acquired deformity of head | | May 08, 2018 [facility] [place] Neuro Surgery 18,400. | | Other acquired deformity of head 18,400. 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 | | Nontraumatic subarachnoid hemorrhage, unspecified Dec 03, 2017 [facility] and | | [facility] [place] Neuro Surgery 18,400. Other complications of procedures, | | not elsewhere classified, initial encounter 18,400. Essential (primary) hypertension | | 18,400. Nontraumatic subarachnoid hemorrhage, unspecified 18,400. Other specified | | health status 18,400. Other acquired deformity of head 18,400. Intracranial | | abscess and granuloma 18,400. Constipation, unspecified Care TeamThere are no care | | providers on record at this time. Collective PortalThis patient has registered at the | | [facility] Emergency Department For more information visit: | | [email or web address] PLEASE | | NOTE: 1. Any care recommendations and other clinical information are provided as | | guidelines or for historical purposes only, and providers should exercise their own | | clinical judgment when providing care. 2. You may only use this information for | | purposes of treatment, payment or health care operations activities, and subject to the | | limitations of applicable Collective Policies. 3. You should consult directly with | | the organization that provided a care guideline or other clinical history with any | | questions about additional information or accuracy or completeness of information | | provided.? 2019 [employer] | | Allergy status to other antibiotic agents status | | Allergy status to other drugs, medicaments and biological substances status | | Allergy status to sulfonamides status | | | | | | | |Recent Inpatient Visit Summary | |Date Facility City State Type Diagnoses or Chief Complaint | |Aug 03, 2018 [facility] [place] Ear, Nose, Throat | | 18,400. Disruption of external operation (surgical) wound, not elsewhere classified, init ial encounter | | | |July 10, 2018 [facility] [place] Inpatient | | 18,400. Other specified postprocedural states | | 18,400. Disruption of external operation (surgical) wound, not elsewhere classified, ini tial encounter | | | |May 14, 2018 [facility] [place] Neuro Surgery | | 18,400. Other acquired deformity of head | | | |May 08, 2018 [facility] [place] Neuro Surgery | | 18,400. Other acquired deformity of head | | 18,400. Communicating hydrocephalus | | 18,400. Nontraumatic subarachnoid hemorrhage, unspecified | | | |Dec 03, 2017 [facility] [place] Neuro Surgery | | 18,400. Other complications of procedures, not elsewhere classified, initial encounter | | 18,400. Essential (primary) hypertension | | 18,400. Nontraumatic subarachnoid hemorrhage, unspecified | | 18,400. Other specified health status | | 18,400. Other acquired deformity of head | | 18,400. Intracranial abscess and granuloma | | 18,400. Constipation, unspecified | | | | | | | |Care Team | |There are no care providers on record at this time. | |Collective Portal | |This patient has registered at the [facility] and [facility] Emergency Departmen t | |For more information visit: [email or web address] | |PLEASE NOTE: | | 1. Any care recommendations and other clinical information are provided as guidelines or for historical purposes only, and providers should exercise their own clinical judgment whe n providing care. | | 2. You may only use this information for purposes of treatment, payment or health care o perations activities, and subject to the limitations of applicable Collective Policies. | | 3. You should consult directly with the organization that provided a care guideline or o ther clinical history with any questions about additional information or accuracy or complet eness of information provided. | | | |? 2019 [employer]. - [email or web address] | + + + + + + + | Performing | Address | City/State/Zipcode | Phone Number | | Organization | | | | + + + + + | [facility] | [address] | [place], [place] | [phone] | | TECHNOLOGIES | [address] | [address] | | + + + + + documented in this encounter Visit Diagnoses + + | Diagnosis | + + | Postoperative surgical complication involving skin associated with dermatologic | | procedure, unspecified complication - Primary | + + | Skull defect Unspecified acquired deformity of head | + + | HTN (hypertension) Unspecified essential hypertension | + + | CAD in [place] artery Coronary atherosclerosis of [place] coronary artery | + + | HLD (hyperlipidemia) Other and unspecified hyperlipidemia | + + | GERD (gastroesophageal reflux disease) Esophageal reflux | + + | Smoker Tobacco use disorder | + + | SAH (subarachnoid hemorrhage) (HCC) Subarachnoid hemorrhage | + + documented in this encounter Administered Medications + +--------+---------+------+------+------+ | Medication Order | MAR | Action | Dose | Rate | Site | | | Action | Date | | | | + +--------+---------+------+------+------+ + +---+ | acetaminophen (TYLENOL) tablet | | | 650 mg 650 mg, oral, EVERY 6 | | | HOURS NEEDED, Starting Clarisa | | | 09/14/18 at 0126, Until 09/22/18 | | | at 1737, mild pain, first line, | | | multimodal pain control | | + +---+ | | | + +---+ + +-------+ +--------+---+---+ | amoxicillin-clavulanate | Given | 09/23/19 | 875 mg | | | | (AUGMENTIN) 875-125 mg 875 mg | | 19 8:13 | | | | | 875 mg, oral, TWICE DAILY, First | | AM PDT | | | | | dose on Tue09/20/18 at 1200, | | | | | | | Until Discontinued | | | | | | + +-------+ +--------+---+---+ +-------+ +--------+---+---+ | Given | 09/22/19 | 875 mg | | | | | 19 8:41 | | | | | | PM PDT | | | | +-------+ +--------+---+---+ | Given | 09/22/19 | 875 mg | | | | | 19 8:18 | | | | | | AM PDT | | | | +-------+ +--------+---+---+ +---+---+ | | | +---+---+ + +-------+ +-------+---+---+ | atorvastatin (LIPITOR) tablet | Given | 09/22/19 | 80 mg | | | | 80 mg 80 mg, oral, EVERY | | 19 8:41 | | | | | EVENING, First dose on Tue | | PM PDT | | | | | 09/14/18 at 0145, Until | | | | | | | Discontinued | | | | | | + +-------+ +-------+---+---+ +-------+ +-------+---+---+ | Given | 09/21/19 | 80 mg | | | | | 19 9:32 | | | | | | PM PDT | | | | +-------+ +-------+---+---+ | Given | 09/20/19 | 80 mg | | | | | 19 9:34 | | | | | | PM PDT | | | | +-------+ +-------+---+---+ + +---+ | | | + +---+ | bisacodyl (DULCOLAX) | | | suppository 10 mg 10 mg, rectal, | | | DAILY NEEDED, Starting Fri | | | 09/15/18 at 0844, Until 09/22/18 | | | at 1737, 2nd line for no BM in | | | past 2 days OR if no response to | | | MIRALAX or if patient unable to | | | tolerate oral | | + +---+ | | | + +---+ + +-------+ +-------+---+---+ | chlorhexidine (PERIDEX) | Given | 09/17/19 | 15 mL | | | | mouthwash 15 mL 15 mL, oral, | | 19 4:42 | | | | | EVERY 6 HOURS, First dose on Fri | | AM PDT | | | | | 09/15/18 at 1000, Until | | | | | | | Discontinued | | | | | | + +-------+ +-------+---+---+ +-------+ +-------+---+---+ | Given | 09/16/19 | 15 mL | | | | | 19 8:12 | | | | | | PM PDT | | | | +-------+ +-------+---+---+ | Given | 09/16/19 | 15 mL | | | | | 19 5:22 | | | | | | PM PDT | | | | +-------+ +-------+---+---+ +---+---+ | | | +---+---+ + +-------+ +-------+---+---------+ | enoxaparin (LOVENOX) injection | Given | 09/18/19 | 40 mg | | Abdomen | | 40 mg 40 mg, subcutaneous, EVERY | | 19 9:05 | | | | | EVENING, First dose on Tue | | PM PDT | | | | | 09/15/18 at 2100, Until | | | | | | | Discontinued | | | | | | + +-------+ +-------+---+---------+ +-------+ +-------+---+---------+ | Given | 09/17/19 | 40 mg | | Abdomen | | | 19 9:58 | | | | | | PM PDT | | | | +-------+ +-------+---+---------+ | Given | 09/16/19 | 40 mg | | Abdomen | | | 19 8:12 | | | | | | PM PDT | | | | +-------+ +-------+---+---------+ +---+---+ | | | +---+---+ + +-------+ +-------+---+---+ | famotidine (PEPCID) tablet 20 | Given | 09/23/19 | 20 mg | | | | mg 20 mg, oral, TWICE DAILY, | | 19 8:13 | | | | | First dose on Tue09/15/18 at | | AM PDT | | | | | 1000, Until Discontinued | | | | | | + +-------+ +-------+---+---+ +-------+ +-------+---+---+ | Given | 09/22/19 | 20 mg | | | | | 19 8:41 | | | | | | PM PDT | | | | +-------+ +-------+---+---+ | Given | 09/22/19 | 20 mg | | | | | 19 8:19 | | | | | | AM PDT | | | | +-------+ +-------+---+---+ +---+---+ | | | +---+---+ + +---------+ +--------+---+---+ | iohexol (OMNIPAQUE) 350 mg | IV Push | 09/15/19 | 100 mL | | | | iodine/mL injection 100 mL 100 | | 19 2:55 | | | | | mL, intravenous, ONCE, 1 dose, | | PM PDT | | | | | Clarisa 09/14/18 at 1530 | | | | | | + +---------+ +--------+---+---+ + +---+ | | | + +---+ | ipratropium-albuterol (DUO-NEB) | | | nebulizer solution 3 mL 3 mL, | | | inhalation, EVERY 6 HOURS | | | NEEDED, Starting Clarisa 09/14/18 at | | | 0126, Until Tue09/22/18 at 1737, | | | dyspnea/SOB | | + +---+ | | | + +---+ + + + +---+---+---+ | lactated ringers IV 50 mL/hr, | given by | 09/20/19 | | | | | intravenous, CONTINUOUS, Starting | | 19 3:28 | | | | | 09/19/18 at 0000, Until Clarisa | anesthes | PM PDT | | | | | 09/21/18 at 0438 | iology | | | | | + + + +---+---+---+ +---------+ + + +---+ | New Bag | 09/20/19 | 50 mL/hr | 50 mL/hr | | | | 19 4:40 | | | | | | AM PDT | | | | +---------+ + + +---+ +---+---+ | | | +---+---+ + +-------+ +---------+---+---+ | lactobacillus rhamnosus (GG) | Given | 09/22/19 | 1 | | | | (CULTURELLE) 15 billion cell | | 19 11:29 | capsule | | | | capsule 1 capsule 1 capsule, | | AM PDT | | | | | oral, DAILY, First dose on Tue | | | | | | | 09/15/18 at 1200, Until | | | | | | | Discontinued | | | | | | + +-------+ +---------+---+---+ +-------+ +---------+---+---+ | Given | 09/21/19 | 1 | | | | | 19 12:10 | capsule | | | | | PM PDT | | | | +-------+ +---------+---+---+ | Given | 09/19/19 | 1 | | | | | 19 1:17 | capsule | | | | | PM PDT | | | | +-------+ +---------+---+---+ +---+---+ | | | +---+---+ + +-------+ +-------+---+---+ | metoprolol succinate | Given | 09/22/19 | 50 mg | | | | (TOPROL-XL) tablet 50 mg 50 mg, | | 19 8:41 | | | | | oral, EVERY EVENING, First dose | | PM PDT | | | | | on Clarisa 09/14/18 at 0145, Until | | | | | | | Discontinued | | | | | | + +-------+ +-------+---+---+ +-------+ +-------+---+---+ | Given | 09/21/19 | 50 mg | | | | | 19 9:32 | | | | | | PM PDT | | | | +-------+ +-------+---+---+ | Given | 09/20/19 | 50 mg | | | | | 19 9:35 | | | | | | PM PDT | | | | +-------+ +-------+---+---+ +---+---+ | | | +---+---+ + + + +---------+---+ + | nicotine (NICOTROL) 21 mg/24 hr | Applied | 09/22/19 | 1 patch | | Right | | patch 1 patch 1 patch, | Patch | 19 8:19 | | | Shoulder | | transdermal, DAILY, First dose on | | AM PDT | | | | | Tue09/15/18 at 1430, Until | | | | | | | Discontinued | | | | | | + + + +---------+---+ + + + +---------+---+ + | Applied Patch | 09/21/19 | 1 patch | | Left Arm | | | 19 9:05 | | | | | | AM PDT | | | | + + +---------+---+ + | Applied Patch | 09/20/19 | 1 patch | | Left Arm | | | 19 9:24 | | | | | | AM PDT | | | | + + +---------+---+ + +---+---+ | | | +---+---+ + +-------+ +------+---+---+ | ondansetron (ZOFRAN) tablet 8 | Given | 09/20/19 | 8 mg | | | | mg 8 mg, oral, EVERY 12 HOURS | | 19 9:55 | | | | | NEEDED, Starting 09/15/18 at | | PM PDT | | | | | 0845, Until Tue09/22/18 at 1737, | | | | | | | nausea/vomiting, first line | | | | | | + +-------+ +------+---+---+ + +---+ | | | + +---+ | oxyCODONE (immediate release) | | | (ROXICODONE) tablet 2.5-5 mg | | | 2.5-5 mg, oral, EVERY 4 HOURS | | | NEEDED, Starting Tue09/20/18 at | | | 0656, Until Tue09/22/18 at 1737, | | | severe pain | | + +---+ | | | + +---+ + +-------+ +---------+---+---+ | piperacillin-tazobactam (ZOSYN) | Bolus | 09/20/19 | 3.375 g | | | | IV (minibag+) 3.375 g 3.375 g, | | 19 12:28 | | | | | intravenous, EVERY 8 HOURS, First | | PM PDT | | | | | dose on Tue09/14/18 at 1630, | | | | | | | Until Discontinued | | | | | | + +-------+ +---------+---+---+ +---------+ +---------+---+---+ | New Bag | 09/20/19 | 3.375 g | | | | | 19 8:47 | | | | | | AM PDT | | | | +---------+ +---------+---+---+ | New Bag | 09/20/19 | 3.375 g | | | | | 19 12:16 | | | | | | AM PDT | | | | +---------+ +---------+---+---+ +---+---+ | | | +---+---+ + +---------+ +---------+---+---+ | piperacillin-tazobactam (ZOSYN) | New Bag | 09/21/19 | 3.375 g | | | | IV (minibag+) 3.375 g 3.375 g, | | 19 3:30 | | | | | intravenous, EVERY 8 HOURS, First | | AM PDT | | | | | dose (after last modification) | | | | | | | on Tue09/20/18 at 0400, Until | | | | | | | Discontinued | | | | | | + +---------+ +---------+---+---+ +---+---+ | | | +---+---+ + +---------+ +-------+---+---+ | piperacillin-tazobactam (ZOSYN) | New Bag | 09/15/19 | 4.5 g | | | | IV (minibag+) 4.5 g 4.5 g, | | 19 10:27 | | | | | intravenous, ONCE, 1 dose, Clarisa | | AM PDT | | | | | 09/14/18 at 1000 | | | | | | + +---------+ +-------+---+---+ + +---+ | | | + +---+ | polyethylene glycol (MIRALAX) | | | packet 17 g 17 g, oral, DAILY, | | | First dose on Tue09/15/18 at | | | 1000, Until Discontinued | | + +---+ | | | + +---+ | polyethylene glycol (MIRALAX) | | | packet 34 g 34 g, oral, THREE | | | TIMES DAILY NEEDED, Starting | | | Tue09/15/18 at 0844, Until Fri | | | 09/22/18 at 1737, 1st line - for no | | | BM for 2 days | | + +---+ | | | + +---+ + +-------+ +--------+---+---+ | potassium chloride (KLOR-CON) | Given | 09/22/19 | 20 mEq | | | | packet 20 mEq 20 mEq, oral, | | 19 8:40 | | | | | ONCE, 1 dose, [facility] 09/21/18 at 1815 | | PM PDT | | | | + +-------+ +--------+---+---+ + +---+ | | | + +---+ | senna-docusate (SENOKOT S) | | | 8.6-50 mg 2 tablet 2 tablet, | | | oral, TWICE DAILY, First dose on | | | Tue09/15/18 at 1000, Until | | | Discontinued | | + +---+ | | | + +---+ + +-------+ +-------+---+---+ | spironolactone (ALDACTONE) | Given | 09/22/19 | 25 mg | | | | tablet 25 mg 25 mg, oral, EVERY | | 19 8:41 | | | | | EVENING, First dose on Clarisa | | PM PDT | | | | | 09/14/18 at 0145, Until | | | | | | | Discontinued | | | | | | + +-------+ +-------+---+---+ +-------+ +-------+---+---+ | Given | 09/21/19 | 25 mg | | | | | 19 9:32 | | | | | | PM PDT | | | | +-------+ +-------+---+---+ | Given | 09/20/19 | 25 mg | | | | | 19 9:34 | | | | | | PM PDT | | | | +-------+ +-------+---+---+ +---+---+ | | | +---+---+ + +---------+ +--------+---+---+ | vancomycin (VANCOCIN) IV 500 mg | New Bag | 09/20/19 | 500 mg | | | | 500 mg, intravenous, EVERY 12 | | 19 11:01 | | | | | HOURS, First dose (after last | | PM PDT | | | | | modification) on 09/16/18 at | | | | | | | 2200, Until Discontinued | | | | | | + +---------+ +--------+---+---+ +---------+ +--------+---+---+ | Bolus | 09/20/19 | 500 mg | | | | | 19 1:45 | | | | | | PM PDT | | | | +---------+ +--------+---+---+ | New Bag | 09/19/19 | 500 mg | | | | | 19 9:26 | | | | | | PM PDT | | | | +---------+ +--------+---+---+ +---+---+ | | | +---+---+ + +---------+ +--------+---+---+ | vancomycin (VANCOCIN) IV 750 mg | New Bag | 09/17/19 | 750 mg | | | | 750 mg, intravenous, EVERY 12 | | 19 10:46 | | | | | HOURS, First dose on Clarisa 09/14/18 | | AM PDT | | | | | at 1030, Until Discontinued | | | | | | + +---------+ +--------+---+---+ +---------+ +--------+---+---+ | New Bag | 09/16/19 | 750 mg | | | | | 19 10:13 | | | | | | PM PDT | | | | +---------+ +--------+---+---+ | New Bag | 09/16/19 | 750 mg | | | | | 19 10:21 | | | | | | AM PDT | | | | +---------+ +--------+---+---+ +---+---+ | | | +---+---+ + +-------+ + +---+---+ | white petrolatum (VASELINE) | Given | 09/23/19 | 1 packet | | | | ointment 1 packet 1 packet, | | 19 8:14 | | | | | topical, THREE TIMES DAILY, First | | AM PDT | | | | | dose on Tue09/20/18 at 0900, | | | | | | | Until Discontinued | | | | | | + +-------+ + +---+---+ +-------+ + +---+---+ | Given | 09/22/19 | 1 packet | | | | | 19 7:00 | | | | | | PM PDT | | | | +-------+ + +---+---+ | Given | 09/22/19 | 1 packet | | | | | 19 8:22 | | | | | | AM PDT | | | | +-------+ + +---+---+ +---+---+ | | | +---+---+ documented in this encounter
--- OUTSIDE RECORDS SUMMARY | ~2019-10-22 | XMS | Encounter Summary ---
Demographics + + + | Address | [address] | | | [place] [address] | + + + | Home Phone [...] Providers + +------+ + | Care Cut Filer Name | Role | Phone | + [...]
--- OUTSIDE RECORDS SUMMARY | ~2019-10-22 | XMS | Encounter Summary ---
Demographics + + + | Address | [address] | | | [place] [address] | + + + | Home Phone [...] Team Providers + +------+ + | Care Soaker Soda Worker Name | Role | Phone | [...] | | 2017 | | Geovanni Boykin [place] | [address] | cranioplasty; wound | | | | Rd [facility] | [facility] | [facility] | | | | Hospital Admitting | [place] [address] | | | | | Desk Located on the | [phone] | | | | | 9th floor | | | | | | [place], [place] | | | | | | [address] | | | +--------+---------+ + + + [...] MD PCP: No Pcp Per PATIENT Service: [facility] Neurosurgery Diagnoses Principal Final [...] ENT offic e can be called at [phone] to schedule an appointment, if possible you [...] needs so outpatient infusion were arranged through [facility] in [place]. Patient is to go to the hospital [...] growing S. Aureus. Infusion being done at [facility] -Patient on DAPT for CA s/p stent. DAPT Can be resumed on [...] To: Home with outpatient IV abx through [facility] Does patient have a planned readmission: No Discharge Summary Completed?: Yes. 12/09/2017 Discharging Provider: Marni Manning PA-C Date Completed: 12/09/2017 Time Completed: 1:51 PM Discharging Attending: MD Marni Woods PA-C [place] [id number] [facility] [address] [address] [phone] documented in t his encounter Medications at [...] that inf usions set up at [facility]. Patient has had to BM's since [...] is a 67 y.o. female CAD s/p CA, HTN, GERD, tobacco use and neurosur gical [...] patient. Marni Manning PA-C Neurological Surgery Pager [phone] Pager: [phone] obinson, Vangie Hannon PA-C - 12/07/2017 7:25 [...] is a 67 y.o. female CAD s/p CA, HTN, GERD, tobacco use and neurosur gical [...] cx. Marni Manning PA-C Neurological Surgery Pager [phone] Pager: [phone] Associated attestation - Casey Hewitt MD - [...] is a 67 y.o. female CAD s/p CA, HTN, GERD, tobacco use and neurosur gical [...] riccardo. Marni Manning PA-C Neurological Surgery Pager [phone] Pager: [phone] Bari Paulino MD - 12/05/2017 10:32 PM [...] Bari Cameron MD PGY-5 Neurological Surgery Pager [phone] signed by Bari Cameron MD at 12/05/2017 [...] is a 67 y.o. female CAD s/p CA, HTN, GERD, tobacco use and neurosur gical [...] washout and revision ELAINE Bee Neurological Surgery [facility] [address] [address] [address] Pager: [phone] Dillan Somers MD - 12/04/2017 5:05 PM [...] 7am Dillan Bridges MD Neurosurgery, PGY-1 Pager [phone] Dillan Somers MD - 12/04/2017 9:23 AM [...] is a 67 y.o. female CAD s/p CA, HTN, GERD, tobacco use and neurosur gical [...] tonight 10.14 for OR tomorrow Please page [phone] with any questions or concerns. Dillan Bridges MD Neurosurgery, PGY-1 Pager [phone] Associated attestation - Casey Hewitt MD - [...] a 67 y.o. female with CAD s/p CA, HTN, GERD, tobacco use, a nd a [...] before her family br ought her to [place] for evaluation. There, a head CT was notable for an epidural air an d fluid collection consistent with abscess, for which she was transferred to [facility] for neuros urgical management. On arrival here she now denies headache, as well as fever/chills, nausea/vomiting, or focal neurologic concerns including weakness, numbness, or tingling. Her head has been wrapped wi th clean gauze and is no longer actively draining. She does endorse a history of ASA 81 give n her prior CA, with her last dose being this morning. 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) 2007 Essential hypertension GERD (gastroesophageal reflux disease) Goiter MRSA (methicillin resistant staph aureus) culture positive post cariotomy for SAH Otitis media recent abx preadmit Subarachnoid hemorrhage due to ruptured aneurysm ([facility]) 2007 Tobacco dependence PSH: Past Surgical History Procedure Date Partial thyroidectomy Hysterectomy Cholecystecomy Bladder suspension 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 Electric Meter Technician shunt Tympanoplasty 1987 Lumpectomy of left breast [...] Tommie Zarco MD Allergies: Allergies Allergen Reactions [place] Tar Hives Betadine [Povidone-Iodine (With Soap)] Unknown [...] is a 67 y.o. female CAD s/p CA, HTN, GERD, tobacco use and neurosur gical [...] Please contact the Neurosurgery resident on-call pager [phone] with questions or concerns. Vickie Estrada M.D., M.P.H. R2 Resident Physician Neurological Surgery Pager: [phone] signed by Magnolia Diego MD at 12/20/2017 [...] pause veri fies correct patient, procedure, equipment, learning support services director and site/side marked as required. CLABSI Prevention [...] area Basilic vein. Cat heter lot number: [id number] with a length of 55 cm was [...] Stevie olson: 12/05/2017 Attending Surgeon:Casey Hewitt MD Game Protector(s):Bari Cameron MD. Preoperative Diagnosis: Right-sided wound dehiscence [...] ep idural pus-looking collection. MD CASSANDRA Capps/MODPatricia /[id number] signed by Casey Hewitt MD at 12/07/2017 [...] The patient was positioned appropriately. The following steam and gas turbines assembler s were present during the team pause: Neurosurgery, Anesthesiology, OR nursing staff. Surgeon: Casey Hewitt MD Game Protector: Bari Cameron MD Pre-op Diagnosis: Cranioplasty infection [...] Bari Cameron MD PGY-5 Neurological Surgery Pager [phone] Associated attestation - Casey Hewitt MD - 12/05/2017 10:44 PM PDTI was present and scrub bed during the entire procedure. Herminia Cappsocumented in this encounter Consult Notes Tika Mejia MD - 12/09/2017 12:25 PM PDT [facility] Infectious Diseases OPAT Referral for Discharge Planning Team A: OPAT RN Sheryl Rowan, Office: [phone], Pager: [phone] ID Diagnosis: Cranial osteomyelitis, s/p removal of [...] Access: Ok to place PICC Follow Up: [facility] ID faculty with preference to schedule with Dr. Mejia, Any available f gilbert or next available OPAT provider in 3 weeks post hospital discharge. Same day appointment coordination with: Neurosurgery if possible Imaging prior to ID follow up: none ID: Please route your note to the "p OPAT/infectious Diseases Clinic" pool Merry Go Round Operator: For all patients requiring IV antibiotic therapy, please route your OPAT Bj n of Care Note (.CMOPAT) to [facility] "p OPAT/Infectious Diseases clinic" [...] Plan: 67 y/o F with CAD s/p CA, HTN, SAH s/p right pterional craniotomy for clipping (09/2007) c/b hydrocephalus treated by a right frontal VPS (03/2008) and synthetic cranioplasty for eroded hardwarein 10/2015. Presented with a week of increasing headache and purulent drainage fro m the cranioplasty site with wound dehiscence, and on 12/06/17 underwent removal of craniopl asty and WELT POCKET MACHINE OPERATOR shunt as well as washout. All hardware [...] the primary team. This patient was staffed [facility] Dr. Mariscal, who agrees with the above assessment and plan unless otherwise documented. Maite Stevens M4 Pager [phone] signed by Xavier Mariscal MD at 12/08/2017 [...] Plan: 67 y/o F with CAD s/p CA, HTN, SAH s/p right pterional craniotomy for clipping (09/2007) c/b hydrocephalus treated by a right frontal VPS (03/2008) and synthetic cranioplasty for eroded hardware in 10/2015. Presented with a week of increasing headache and purulent drainage from the cranioplasty site with wound dehiscence, and on 12/06/17 underwent removal of craniopla sty and WELT POCKET MACHINE OPERATOR shunt as well as washout. All hardware [...] the primary team. This patient was staffed [facility] Dr. Mariscal, who agrees with the above assessment and plan unless otherwise documented. Tika Mejia MD Infectious Disease Fellow Pager: [phone] signed by Xavier Mariscal MD at 12/07/2017 [...] to fourth dose. Please page clinical pharmacist [phone]) or call central inpatient pharmacy ([phone]) with qu estions. Actual body weight: Weight: 49.4 kg (109 lb) (12/03/17 7790) Labs: CREATININE PLASMA (LAB) (mg/dL) Date Value 12/05/2017 0.74 12/03/2017 0.63 BUN, PLASMA (LAB) (mg/dL) Date Value 12/05/2017 12 12/03/2017 12 WHITE CELL COUNT (K/cu mm) Date Value 12/07/2017 13.50 (H) 12/05/2017 10.28 12/03/2017 12.22 (H) VANCOMYCIN, TROUGH (ug/mL) Date/Time Value 12/07/2017 1114 11.9 Pertinent cultures/sensitivities: Tissue/Abscess from Head: Staphylococcus aureus. Thank you for the consult, Edmund Herr PharmD Clinical Pharmacist Pager: [phone] Marianna Tirado M D - 12/06/2017 4:03 [...] follow Thank you for the consult Marianna Chandlre MD INFECTIOUS DISEASES AT [facility] [address]RD [address] [place] [address] Mailcode: [address] [place] [phone] Fax - [phone] signed by Marianna Chandler MD at 12/09/2017 [...] dose (1030 12/07). Please page clinical pharmacist [phone]) or call central inpatient pharmacy ([phone]) with qu estions. Actual body weight: Weight: 49.4 kg (109 lb) (12/03/17 6986) Labs: CREATININE PLASMA (LAB) (mg/dL) Date Value 12/05/2017 0.74 12/03/2017 0.63 BUN, PLASMA (LAB) (mg/dL) Date Value 12/05/2017 12 12/03/2017 12 WHITE CELL COUNT (K/cu mm) Date Value 12/05/2017 10.28 12/03/2017 12.22 (H) Pertinent cultures/sensitivities: Tissue and abscess from head: Few GPCs Catheter Tip from head: NGTD Thank you for the consult, Edmund Herr PharmD Clinical Pharmacist Pager: [phone] oMaite vasquez - 9:27 AM PDTAssociated Order(s): [...] a 67 y.o. female with CAD s/p CA, HTN, SAH s/p right pterional craniotomy for [...] vision at this time. She presented to [facility] where a head CT showed epidural air and fluid collection consistent with abscess. Wound was swabbed in the ED and showed growth of MSSA (12/05). She was then transferred to [facility] for neurosurgi eagle management. [...] neoplasm of major salivary glands CAD in [place] artery s/p NSTEMI 12/27/2014; status post stent placement in the mid LAD Chronic pain Continuous tobacco abuse COPD on oxygen at night CVA (cerebral vascular accident) ([facility]) 2007 Essential hypertension GERD (gastroesophageal reflux disease) Goiter MRSA (methicillin resistant staph aureus) culture positive post cariotomy for SAH Otitis media recent abx preadmit Subarachnoid hemorrhage due to ruptured aneurysm ([facility]) 2007 Tobacco dependence Past Surgical History: Procedure Laterality Date BLADDER SUSPENSION cholecystecomy CORONARY STENT PLACEMENT 12/28/2014 status post stent placement in the mid LAD HYSTERECTOMY LUMPECTOMY OF LEFT BREAST 1979 PARTIAL THYROIDECTOMY Right REPAIR OF ANEURYSM BY CLIPPING TYMPANOPLASTY Right 1987 WELT POCKET MACHINE OPERATOR SHUNT Prior Medications: Prescriptions Prior to Admission [...] mg intravenous Q12H Allergies Allergies Allergen Reactions [place] Tar Hives Betadine [Povidone-Iodine (With Soap)] Unknown [...] RLB Gram Stain...........: Gram smear performed at [facility]. Culture: Final Report: No growth after 3 days. Final Report 04/29/2008 CSF Culture Source...............: Cerebrospinal Fluid RLB Gram Stain...........: Gram smear performed at [facility]. Culture: Rare Methicillin resistant Staphylococcus aureus Final ID MRSA Cefazolin R Clindamycin S Erythromycin R Oxacillin R Penicillin R Tetracycline S Trimeth/Sulfa S Vancomycin S Final Report 03/07/2008 CSF Culture Source...............: Cerebrospinal Fluid RLB Gram Stain...........: Gram smear performed at [facility]. Culture: Final Report: No growth after 3 days. Final Report 03/03/2008 CSF Culture Source...............: Cerebrospinal Fluid RLB Gram Stain...........: Gram smear performed at [facility]. Culture: Final Report: No growth after 3 days. Final Report 03/03/2008 Wound Culture Source...............: Skin Abscess RLB Gram Stain...........: Rare Squamous epithelial cells Rare PMN's Rare Gram positive cocci Culture: 1+ Methicillin resistant Staphylococcus aureus Final ID MRSA Cefazolin R Clindamycin S Erythromycin R Oxacillin R Penicillin R Tetracycline S Trimeth/Sulfa S Vancomycin S Final Report Resulted: 03/05/08 RLB ([facility]) [place] [address] [facility] [place] [address] 03/03/2008 Urine Culture Source...............: Clean catch Culture: Final Report: No growth (< 1,000 col/ml) after 24 hours Final Report Resulted: 03/05/08 RLB ([facility]) [place] [address] [place] [address] 10/28/2007 CSF Culture Source...............: Cerebrospinal Fluid RLB Gram Stain...........: Gram smear performed at [facility]. Culture: Final Report: No growth after 3 days. Final Report CULTURE RESULT (no units) Date Value 12/03/2017 No growth to date. Imaging: CT head 12/06: Interval postsurgical changes of right frontal cranioplasty and WELT POCKET MACHINE OPERATOR shunt rem oval without acute intracranial abnormality. Fluid and gas collection in the cranioplasty be d is unchanged. Problem List: Active Problems: Draining postoperative wound Assessment and Plan: Cielo Bell is a 67 y.o. female with CAD s/p CA, HTN, SAH s/p right pterional c raniotomy [...] initial cultur es from wound swab in [place] show MSSA, an infection of this duration [...] the primary team. This patient was staffed [facility] Dr. Chandler, who agrees with the above assessment and plan unless otherwise documented. Thank you for the consult. We will follow along with you. Maite Stevens, 12/06/17 , 9:29 AM M4 Pager [phone] signed by Marianna Chandler MD at 12/09/2017 [...] consult Marianna Chandler MD INFECTIOUS DISEASES AT [facility] 3RD FLOOR [facility] Mailcode: [address] [place] [phone] Fax - [phone] documented in this encounter Miscellaneous Notes Handoff - Jemima Holloway RN - 12/09/2017 10:40 AM PDTNursing Handoff Patient Daily Goal: Bowel Movement and progress to discharge (12/09/17 0284) Patient Specific Preferences: wants coffee SAIDA if not having surgery (12/04/17 2666) [facility] IP NURSE HANDOFF: [place] hospital course events: Cielo Bell is a 67 y.o. fem euegnie here for removal of infected crainioplasty and washout. 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 Patient was admitted to [facility] on evening of 12/05. SAFETY Patient/Family Target: [...] SAIDA if not having surgery (12/04/17 0832) [facility] IP NURSE HANDOFF: [place] hospital course events: Cielo Bell is a 67 y.o. fem eugenie here for removal of infected crainioplasty and washout. 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 Patient was admitted to [facility] on evening of 12/05. SAFETY Patient/Family Target: [...] Pending clinical course andoff - Fr clari hWite RN - 12/08/2017 4:53 PM PDTNursing Handoff Patient Daily Goal: Nausea control and to have BM (12/08/17 0853) Patient Specific Preferences: wants coffee SAIDA if not having surgery (12/04/17 0832) [facility] IP NURSE HANDOFF: [place] hospital course events: Cielo Bell is a 67 y.o. fem eugenie here for removal of infected crainioplasty and washout. 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 Patient was admitted to [facility] on evening of 12/05. SAFETY Patient/Family Target: [...] SAIDA if not having surgery (12/04/17 0832) [facility] IP NURSE HANDOFF: [place] hospital course events: Cielo Bell is a 67 y.o. fem eugenie here for removal of infected crainioplasty and washout. 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 Patient was admitted to [facility] on evening of 12/05. SAFETY Patient/Family Target: [...] SAIDA if not having surgery (12/04/17 0832) [facility] IP NURSE HANDOFF: [place] hospital course events: Cielo Bell is a 67 y.o. fem eugenie here for removal of infected crainioplasty and washout. 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 Patient was admitted to [facility] on evening of 12/05. SAFETY Patient/Family Target: [...] about 6 hrs. HEALTH PROMOTION Patient/Family Target: Cileo will have BM soon. Progress to Target: [...] SAIDA if not having surgery (12/04/17 0832) [facility] IP NURSE HANDOFF: [place] hospital course events: Cielo Bell is a 67 y.o. fem eugenie here for removal of infected crainioplasty and washout. 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 Patient was admitted to [facility] on evening of 12/05. SAFETY Patient/Family Target: [...] -Treat symptoms prn Following. Hallie Duncan RD, CORPORATE OFFICER, [place] #[id number] Comments: Cielo Bell is a 67 y.o. [...] SAIDA if not having surgery (12/04/17 0832) [facility] IP NURSE HANDOFF: [place] hospital course events: Cielo Bell is a 67 y.o. fem eugenie here for removal of infected crainioplasty and washout. 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 Patient was admitted to [facility] on evening of 12/05. SAFETY Patient/Family Target: [...] SAIDA if not having surgery (12/04/17 0832) [facility] IP NURSE HANDOFF: [place] hospital course events: Cielo Bell is a 67 y.o. fem eugenie here for removal of infected crainioplasty and washout. 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 Patient was admitted to [facility] on evening of 12/05. SAFETY Patient/Family Target: [...] in amb ulance on a stretcher from [place]. She stated she asked attendant to put [...] coffee SAIDA if not having surgery (12/04/17 4332) [facility] IP NURSE HANDOFF: [place] hospital course events: Per previous RN handoff: 67 y.o. female with CAD s/p CA, HTN, GERD, tobacco use, and a long [...] manages all of her own ADLs at [facility]. SAFETY Patient/Family Target: Cielo will remain NPO [...] Progress to Target: Improving As evidenced by: --PLAN REP completed shower, LAILA and linen change at [...] neoplasm of major salivary glands CAD in [place] artery s/p NSTEMI 12/27/2014; status post stent placement in the mid LAD Chronic pain Continuous tobacco abuse COPD on oxygen at night CVA (cerebral vascular accident) ([facility]) 2007 Essential hypertension GERD (gastroesophageal reflux disease) Goiter MRSA (methicillin resistant staph aureus) culture positive post cariotomy for SAH Otitis media recent abx preadmit Subarachnoid hemorrhage due to ruptured aneurysm ([facility]) 2007 Tobacco dependence Past Surgical History Procedure Laterality Date Partial thyroidectomy Right Hysterectomy Cholecystecomy Bladder suspension 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 Electric Meter Technician shunt Tympanoplasty Right 1987 Lumpectomy of left breast 1978 Coronary stent placement 12/28/2014 status post stent placement in the mid LAD * No Diagnosis Codes entered * Surgical Procedure Planned - Actual Procedure Performed: Procedure(s) with comments: CRANIAL WOUND WASHOUT - explant of cranioplasty; wound washout REMOVAL OF VENTRIULO-PERITONEAL SHUNT - possible removal of WELT POCKET MACHINE OPERATOR shunt Anesthesia: General & Local Length of procedure: In Room/Out of Room: 1 Hr 35 Min 54 Sec Surgeon(s) and Role: * Casey Hewitt MD - Primary OR positioning comments: supine Neuro: POSS Sedation Level: Sleep, Easy to Arouse Last pain medication given: Pain medication totals: see MAR Additional pain medication information: none Functional Epidural: N/A PUNCH PRESS SETTER: N/A Respiratory: RR: 16, O2 Sat: 93 %, O2 Delivery: Oxymask Breath Sounds: WDL Except DARIEN: LLL: RUL: RLL: MELISSA No Comment: none Cardiac: BP: 107/53 HR: 88 GI: Nausea/Vomiting Status: No Signs/Symptoms: Interventions: Assessment: Comments: none : Last void: 1949 Contact Name: Eric () or Juan (ASHUTOSH) Contact Number: [phone] Family contacted: Yes Comment:update to brother Eric at time of transfer Belongings:upper dentures returned to [place], no other belongings in PACUNursing Handoff Patient Daily Goal: go to OR (12/05/171948) Patient Specific Preferences: wants coffee SAIDA if not having surgery (12/04/17 0832) [facility] IP NURSE HANDOFF: [place] hospital course events: Cielo Bell is a 67 y.o. fem eugenie here for removal of infected crainioplasty and washout. 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 Patient was admitted to [facility] on evening of 12/05. SAFETY Patient/Family Target: [...] neoplasm of major salivary glands CAD in [place] artery s/p NSTEMI 12/27/2014; status post stent placement in the mid LAD Chronic pain Continuous tobacco abuse COPD on oxygen at night CVA (cerebral vascular accident) ([facility]) 2007 Essential hypertension GERD (gastroesophageal reflux disease) Goiter MRSA (methicillin resistant staph aureus) culture positive post cariotomy for SAH Otitis media recent abx preadmit Subarachnoid hemorrhage due to ruptured aneurysm ([facility]) 2007 Tobacco dependence Past Surgical History Procedure Laterality Date Partial thyroidectomy Right Hysterectomy Cholecystecomy Bladder suspension 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 Electric Meter Technician shunt Tympanoplasty Right 1987 Lumpectomy of left breast 1978 Coronary stent placement 12/28/2014 status post stent placement in the mid LAD * No Diagnosis Codes entered * Surgical Procedure Planned - Actual Procedure Performed: Procedure(s) with comments: CRANIAL WOUND WASHOUT - explant of cranioplasty; wound washout REMOVAL OF VENTRIULO-PERITONEAL SHUNT - possible removal of WELT POCKET MACHINE OPERATOR shunt Anesthesia: General & Local Length of procedure: In Room/Out of Room: 1 Hr 35 Min 54 Sec Surgeon(s) and Role: * Casey Hewitt MD - Primary OR positioning comments: supine Neuro: POSS Sedation Level: Frequently Drowsy, Arousable, Drifts Off to Sleep during Conve rsation Last pain medication given: Pain medication totals: see MAR Additional pain medication information: none Functional Epidural: N/A PUNCH PRESS SETTER: N/A Respiratory: RR: (!) 25, O2 Sat: 91 %, O2 Delivery: Nasal cannula Breath Sounds: WDL Except DARIEN: LLL: RUL: RLL: MELISSA No Comment: none Cardiac: BP: 143/80 HR: 90 GI: Nausea/Vomiting Status: No Signs/Symptoms: Interventions: Assessment: Comments: none : Last void: 1948 Contact Name: Eric () sachin Martinez (ASHUTOSH) Contact Number: [phone] Family contacted: Yes Comment:update to brother Eric at time of transfer Belongings:upper dentures returned to [place], no other belongings in PACUElectronically sig gem by Silvia Byrne RN at 12/05/2017 11:15 PM PDTHandoff - Diana Pollock RN - 12/06/19 5:42 PM PDTNursing Handoff Patient Daily Goal: Have surgery (12/05/17 0820) Patient Specific Preferences: wants coffee SAIDA if not having surgery (12/04/17 0832) [facility] IP NURSE HANDOFF: [place] hospital course events: Per previous RN handoff: 67 y.o. female with CAD s/p CA, HTN, GERD, tobacco use, and a long [...] Progress to Target: Improving As evidenced by: --PLAN REP completed shower, LAILA and linen change at [...] Tuesday(per previous shift report) andoff - Basil, [place]s ALEKSANDAR ferguson - 12/05/2017 5:46 AM PDTNursing Handoff Patient Daily Goal: Find out the plan for surgery- would like to be taken off NPO if not posadas ving sx today (12/04/17831) Patient Specific Preferences: wants coffee SAIDA if not having surgery (12/04/17831) [facility] IP NURSE HANDOFF: N[place]bitt hospital course events: Per previous RN handoff: 67 y.o. female with CAD s/p CA, HTN, GERD, tobacco use, and a long [...] all of her own ADLs at [facility]. SAFETY Patient/Family Target: Cielo will use call [...] coffee SAIDA if not having surgery (12/04/17831) [facility] IP NURSE HANDOFF: Nesbitt hospital course events: Per previous RN handoff: 67 y.o. female with CAD s/p CA, HTN, GERD, tobacco use, and a long [...] coffee SAIDA if not having surgery (12/04/17831) [facility] IP NURSE HANDOFF: Nesbitt hospital course events: Per previous RN handoff: 67 y.o. female with CAD s/p CA, HTN, GERD, tobacco use, and a long [...] manages all of her own ADLs at [facility]. NURSING ASSESSMENT & RECOMMENDATIONS FORWARD Nursing Assessment [...] a plan for fix head (12/03/17 2200) [facility] IP NURSE HANDOFF: Nesbitt hospital course events: 67 y.o. female with CAD s/p CA, HTN, EULALIA D, tobacco use, and a [...] At | + + + | EXAM: [place] ABDOMEN 1 VIEW History: Concern for SBO, [...] MD | | | Dictation initiated: Lei Chnu MD 12/09/2017 4:19 PM | | + + + + + | Procedure Note | + + | Service Account, [employer] Res In Interface - 12/09/2017 4:22 PM PDT EXAM: [place] ABDOMEN | | 1 VIEW History: Concern [...] [facility] | [address] | [place] [address] | | | SERVICES, CORE | PARK [...] | + + + + + | [facility] | [address] | [place] [address] | | | SERVICES, CORE | [address] | | | + + + + + X-RAY PORTABLE CHEST PICC LINE CHECK (12/07/2017 1:17 PM PDT) + + | Specimen | + + | | + + + + + | Narrative | Performed At | + + + | EXAM: [place] CHEST PICC LINE CHECK HISTORY: new picc placement, pt | [facility] | | ready COMPARISON: 04/29/2008 FINDINGS: Right upper | RADIOLOGY VOICE | | extremity PICC tip is in the region of the cavoatrial junction. WELT POCKET MACHINE OPERATOR | RECOGNITION 2 | | shunt projects [...] Note | + + | Service Account, [employer] Res In Interface - 12/07/2017 1:25 PM PDT EXAM: [place] CHEST | | PICC LINE CHECK HISTORY: new picc placement, pt ready COMPARISON: 04/29/2008 FINDINGS: | | Right upper extremity PICC tip is in the region of the cavoatrial junction. WELT POCKET MACHINE OPERATOR shunt | | projects over the right [...] | | verifies correct patient, procedure, equipment, learning support services director and | | | site/side marked as [...] | area Basilic vein. Catheter lot number: [id number] with a length of 55 | | [...] | | | LABORATORY | | | [facility] | | | SERVICES, | | | [...] give dose after drawing trough. Questions, page #[phone]. | LABORATORY | | Thank you. GFR [...] | + + + + + | [facility] | [address] | [place] [address] | | | SERVICES, CORE | PARK [...] give dose after drawing trough. Questions, page #[phone]. | LABORATORY | | Thank you. | SERVICES, RYAN | + + + + + + + + | Performing | Address | City/State/Zipcode | Phone Number | | Organization | | | | + + + + + | [facility] | [address] | [place] [address] | | | SERVICES, CORE | [address] [...] | + + + + + | [facility] | [address] | [place] [address] | | | RYAN ORNELAS | [address] | | | + + + + + OPERATION RECORD (12/06/2017 2:12 AM PDT) + + | Procedure Note | + + | Casey Hewitt MD - 12/06/2017 2:12 AM PDT Date of Service: 12/05/2017 Attending | | Surgeon:Casey Hewitt MD Game Protector(s):Bari Cameron MD. | | Preoperative Diagnosis: Right-sided [...] 12/06/2017 00:30:33DT: 12/06/2017 | | 02:12:59Job #: [id number] | + + CT HEAD WO CONTRAST [...] | | | right frontal cranioplasty and WELT POCKET MACHINE OPERATOR shunt removal without acute | | | [...] postsurgical changes of right frontal cranioplasty and WELT POCKET MACHINE OPERATOR shunt removal without | | acute intracranial [...] postsurgical changes of right frontal cranioplasty and WELT POCKET MACHINE OPERATOR shunt removal without ac flandreau intracranial abnormality. | | | |Fluid and [...] [facility] | [address] | [place], [place] | | | [facility]ARE | [address] | [address] | | | TESTS | | | | + + + + + PROCEDURE NOTE (12/05/2017 10:14 PM PDT) + + + | Narrative | Performed At | + + + | Bari Cameron MD 12/05/2017 10:21 PM Neurosurgery Brief | | | Operative Note 12/05/2017 10:14 PM Patient: Cielo Hernadez | | | [place] Consent: Prior to the beginning of [...] Surgeon: | | | Casey Hewitt MD Game Protector: Bari Cameron MD Pre-op | | | [...] PGY-5 | | | Neurological Surgery Pager [phone] | | + + + CULTURE, TISSUE [...] - | | | | | | [place] | | + + + + + [...] + | [facility] | [address] | [place] [address] | | | [place] | | | | + + + [...] + | [facility] | [address] | [place] [address] | | | [place] | | | [...] 1+ Staphylococcus aureus Refer to culture | [facility] - | | collected 12/05/17 at 2137 for susceptibilities No anaerobic | [facility] - | | organisms isolated Gram Stain: Few squamous epithelial cells | [place] | | Moderate polymorphonuclear cells Few Gram positive cocci | | + + + + + + + + | Performing | Address | City/State/Zipcode | Phone Number | | Organization | | | | + + + + + | [facility] - | [address] | [place] [address] | | | [place] | | | | + + + [...] | + + + + + | [facility] | [address] | [place] [address] | | | [place] | | | [...] [facility] | [address] | [place], [place] | | | [place] CARE | [address] | [address] | | | TESTS | | | [...] [facility] | [address] | [place] [address] | | | SERVICES, | [address] [...] + + + + + | [facility] | [address] [facility] [address] | [place] [address] | | | SERVICES, | [address] [...] | | | LABORATORY | | | [facility] | | | SERVICES, | | | [...] + + + + + | [facility] | [address] [facility] [address] | [place] [address] | | | SERVICES, CORE | [address] [...] | + + + + + | [facility] | [address] | [place] [address] | | | RYAN ORNELAS | [address] [...] | + + + + + | [facility] | [address] | [place] [address] | | | SERVICES, CORE | [address] [...] + | [facility] | [address] [facility] [address] | [place], [place] | | | CARDIOLOGY | [address] | [address] | | + + + + + [...] + + + + + | [facility] | [address] | [place] [address] | | | SERVICES, CORE | [address] [...] [facility] | [address] | [place] [address] | | | SERVICES, RYAN | [address] [...] | + + + + + | [facility] | [address] | [place] [address] | | | SERVICES, CORE | PARK [...] [facility] | [address] | [place] [address] | | | SERVICES, RYAN | [address] [...] [facility] | [address] | [place] [address] | | | RYAN ORNELAS | [address] [...] [facility] | [address] | [place] [address] | | | SERVICES, RYAN | [address] [...] | | | LABORATORY | | | [facility] | | | SERVICES, | | | [...] + + + + + | [facility] | [address] [facility] | [place] [address] | | | SERVICES, RYAN | [address] [...] AM PDT | | | | | [facility] 12/08/17 at 0900, Until | | [...]
--- OUTSIDE RECORDS SUMMARY | ~2019-10-22 | XMS | Encounter Summary ---
Demographics + + + | Address | [address] | | | [place] [address] | + + + | Home Phone [...] Team Providers + +------+ + | Care Sight Effects Specialist Name | Role | Phone | + +------+ + | No Pcp Per Patient | PCP | Unavailable | + +------+ + Encounter Details +--------+ + + + + | Date | Type | Department | Care Team | Description | +--------+ + + + + | 02/24/ | Anesthesia | Preoperative | Saen Garcias MA | | | 2019 | Event | [facility] Clinic at | [address] | | | | | MPV Day | [address] | | | | | Stay [address] | [facility] [place] | | | | | [address] | [address] | | | | | Mailcode: [id number] | | | | | | [facility] | | | | | | [address] [place], [place] | | | | | | [address] | | | | | | [phone] | | | +--------+ + + + [...]
--- OUTSIDE RECORDS SUMMARY | ~2019-10-22 | XMS | Encounter Summary ---
Demographics + + + | Address | [address] | | | [place] [address] | + + + | Home Phone [...] Team Providers + +------+ + | Care Fireworks Assembly Supervisor Name | Role | Phone | [...] [address] | | | | | [facility] | [place], [place] | | | | | [facility], | [address] | | | | | [address] | [phone] | | | | | floor [place], [place] | | | | | | [address] | | | | | | [phone] | | | +--------+ + + + [...]
--- OUTSIDE RECORDS SUMMARY | ~2019-10-22 | XMS | Encounter Summary ---
Demographics + + + | Address | [address] | | | [place] [address] | + + + | Home Phone | | + + + | Preferred Language | Unknown | + + + | Marital Status | | + + + | Episcopalian Affiliation | MET | + + + [...] Team Providers + +------+ + | Care Minilab Operator Name | Role | Phone | [...] + + | 06/06/ | Office | Preoperative | Jaden, | Preop examination | | 2015 | Visit | Medicine Clinic at | [facility] | (Primary Dx) | | | | MPV | [address] | | | | | Stay [address] | [address] [facility] [place] | | | | | [address] | [id number] | | | | | Mailcode: [id number] | | | | | | Darius Simpson | | | | | | [address] [place], [place] | | | | | | [address] | | | | | | [phone] | | | +--------+---------+ + + + Anesthesia Record [...] + + + | RETIRE | 10/18/07; 513; 12/09/16 | 10/18/07513 by | 12/09/162 by | | D - | (Automatic cleanup per RA | Carlos Eduardo Wakefield RN | Discontinued After | | Gastri | [phone]--contact admin for | | Discharge | | c/Feed | questions.); 162 (Automatic | | | | ing | [...] + + + | Wound/ | 03/04/08; 0; L neck abcess; | 03/04/082199 by | [...] No; right hand; 20; Right; Hand; | [facility] Norton, [facility] | Almita Butler, | | Periph | [...] + + + | Blood Pressure | 107/70 | 06/06/2014 12:11 PM | | | | | PDT | | + + + + + | Pulse | 84 | 06/06/2014 10:40 AM | | | | | PDT | | + + + + + | Temperature | 37.1 C (98.7 F) | 06/06/2014 10:40 AM | | | | | PDT | | + + + + + | Respiratory Rate | 14 | 06/06/2014 10:40 AM | | | | | PDT | | + + + + + | Oxygen Saturation | 96% | 06/06/2014 10:40 AM | | | | | PDT | | + + + + + | Inhaled Oxygen | - | - | | | Concentration | | | | + + + + + | Weight | 53.5 kg (118 lb) | 06/06/2014 10:40 AM | neck 34 cm | | | | PDT | | + + + + + | Height | 149.9 cm (4' 11") | 06/06/2014 10:40 AM | | | | | PDT | | + + + + + | Body Mass Index | 23.83 | 06/06/2014 10:40 AM | | | | | PDT | | + + + + + documented in this encounter Patient Instructions Patient Instructions Valerie Stanley FNP - 06/06/2014 11:59 AM PDT PREOPERATIVE INSTRUCTIONS Empty stomach before surgery On the day BEFORE your surgery, drink plenty of fluids and stay well hydrated NOTHING to eat or drink after midnight the night before surgery. This includes water, coffee, candy, mints, gum. Medications Instructions On the evening before your surgery, take ALL your usual evening medications TAKE the following medications with a sip of water on the morning of surgery: Tylenol if needed for pain. Other medications not specifically mentioned are at your discretion as to taking or not taking on the morning of surgery. Unless otherwise directed by your surgeon, do not take any Aspirin, vitamin E or non-indy roidal anti-inflammatory (NSAIDs i.e. Advil, Aleve, Ibuprofen) or herbal supplements 7 days prior to your surgery. These drugs may interfere with normal blood clotting and may cause ex cessive bleeding and bruising during or after the surgery. If you are in doubt about any medications that you are taking, please contact our office . Skin preparation to help avoid surgical site infections HIBICLENS GUIDE TO GENERAL SKIN CLEANSING AT HOME BEFORE SURGERY Before you bathe or shower: Read the instructions given to you by your healthcare practitioner, and begin your genera l skin cleansing protocol as directed. Carefully read all directions on the product label. Hibiclens is not to be used on the head or face, keep out of the eyes, ears and mouth. Hibiclens is not to be used in the genital area. Hibiclens should not be used if you are allergic to chlorhexidine gluconate or any other ingredients in this preparation. *See Hibiclens label for full product information and precautions. When you bathe or shower the night before your surgery: If you plan to wash your hair, do so with your regular shampoo. Then rinse hair and body thoroughly to remove any shampoo residue. Wash your face with your regular soap or water only. Thoroughly rinse your body with warm water from neck down. Use Hibiclens as you would any other liquid soap. Please do not put the Hibiclens on a wa sh cloth, apply directly to the skin and wash gently. Apply the minimum amount of Hibiclens necessary to cover the skin. Leave the Hibiclens on your skin for 1 minute, then rinse off. Rinse thoroughly with warm water. Do not use your regular soap after applying and rinsing Hibiclens. When using Hibiclens for a second day in a row (morning of surgery, as soon as you wake up) : Shower/bathe again using Hibiclens in the same method as described above. Do not apply any lotions, deodorants, powders or perfumes to the body areas that have been cleaned with Hibiclens. Other Important Guidelines Do not shave the surgical area Do not smoke, drink alcohol or use recreational drugs for 24 hours before your surgery Watch for any change in your health condition. Let your surgeon know right away if you do not feel well. Do not wear makeup, perfume, lotions, deodorant, powder or hairspray. Do not wear any jewelry to the hospital. Wear loose, comfortable clothing. Leave all your valuables at home. Allow enough travel time so you re not late for your check in for surgery. Take a bath or shower and remember [...] ur legs. Sometimes your doctor will order air compression stockings. Compressed air helps the circulation in your legs. Walking and moving will help stimulate normal circulation and deep breathing. After you r surgery, your nurse may ask you to sit, stand or walk. Surgery check-in location: Admitting - [facility], ninth floor [facility] Surgery Check in Time: The Preoperative [...] it is after office hours, call the [facility] dinkey engine operator at [phone] and ask them to page him or h er. documented in this encounter Progress Notes Valerie Stanley FNP - 06/06/2014 12:14 PM PDTFormatting of this note might be differ ent from the original. PREOPERATIVE CONSULT NOTE Author: GRANT ORTEZ Referring Physician: Beny Cruz MD Primary Care Provider: Remington Leroy Md, MD Reason for Consult: Preoperative evaluation and risk assessment Proposed Procedure/Date: Right superficial parotidectomy with preservation on 06/07/[address] Kimberli Lawson HISTORY OF PRESENT ILLNESS: Cielo Bell is a 64 y.o. female here for preoperati ve evaluation for above procedure. Pt has dx of right parotid neck mass. The mass causes p roblems swallowing, coughing, and makes her feel embarrassed in public. No headache; no weig ht loss or night sweats. Still smoking 1.5-2 ppd Pertinent medical history: CVA, SAH in 2007: Stable QUALITY CONTROL TESTER shunt, s/p hydrocephalous 2008 (right): Pt is fully functioning, living independentl y, driving COPD: Mild, not taking any inhalers or medications. Denies recurrent respiratory infe ctions. Tobacco Dependence: Has increased the number of cigarettes she smokes from 1.5 ppd to c lose to 2 ppd; pt verbalizes extreme anxiety about tomorrow's surgery Hx of HTN that she states resolved after her stroke. She was also taken off simvastatin one month ago for normalization of her lipid panel. Perioperative cardiac risks: Hx of CVA Functional Capacity: Low (1-4 mets) Prior complications of anesthesia: none ROS: Pertinent HPI: Cielo Bell is a 64 y F with a right parotid neck mass here for preop kamille luation. 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/06/2014 Goiter 06/06/2014 Past surgery reviewed and updated Past Surgical History Procedure Date Partial thyroidectomy Hysterectomy Cholecystecomy Bladder suspension 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 Immigration Investigator shunt Tympanoplasty 1987 Lumpectomy of left breast 1979 Family history reviewed / updated Family History Problem Relation Cancer Brother lung Cancer Father brain Social history reviewed / updated History Substance Use Topics Smoking status: Current Every Day Smoker -- 1.50 packs/day for 47 years Types: Cigarettes Smokeless tobacco: Never Used Comment: quit for 1 year Alcohol Use: No PHYSICAL EXAM: Last Vitals: BP 107/70 | Pulse 84 | Temp (Src) 37.1 C (98.7 F) (Oral) | RR 14 | Ht 1.49 9 m (4' 11") | Wt 53.524 kg (118 lb) | SpO2 96% | BMI 23.82 kg/(m^2) Body mass index is 23.8 2 kg/(m^2). General: Patients general appearance: Healthy, Alert, No distress, Cooperative and Smiling Head & Neck/Airway: Neck ROM: full Neck Circumference: 34 cm. Dentition: dentures-upper and missing teeth Dentition Comments: bottom sides Cormier: No Mall ampati: II C-Spine: normal Neck Anatomy: Normal Jaw Protrusion: Normal, lower incisors can p rotrude past upper incisors Lung Exam: Wheezing on left side; clears with cough; moist harsh cough; Dx of COPD, not ileana ing medication breath sounds abnormal Respiration Cardiac: Rhythm: regular Rate: normal murmur, systolic click, peripheral edema and weak pul ses Abdominal: General Findings: no abdominal tenderness and Nondistended Bowel Sounds: bowel s ounds are normal Musculoskeletal: Findings: tone normal and normal strength Neuro/Psych: alert Findings: Motor 5/5 strength globally with normal tone, No tremor, Alert , oriented to person, place, time and Normal affect Integument: - open wounds Color: pink Texture: Skin texture - normal Turgor: turgor normal Implants: shunt, Comments: QUALITY CONTROL TESTER shunt right side BMI 23.8 LABS & DATA REVIEWED/ORDERED: CBC and CMP drawn in [place] 2 weeks ago. Results were not available during preop evalua tion appointment. They were sent to Dr. Cruz in urgently marked email at 1:15pm, before her clinic appt with him this afternoon. EKG: Personally reviewed. SR; rate 82; NAD MEDICAL DECISION MAKIN ACC/AHA Perioperative Cardiac Risk Stratification (assumes non-emergent, non-cardiac p rocedure) Are active cardiac conditions present? No Calculate the combined surgical and patient-specific risk: using the Field perioperative ca rdiac risk calculator, the risk of major adverse cardiac event (MACE) is: less than 1%. No further risk stratification for coronary disease is indicated. ASSESSMENT and RECOMMENDATIONS: Surgical/anesthesia risk assessment: Cielo Bell is a 64 y.o. female with d iagnosis of right parotid neck mass, scheduled for Right superficial parotidectomy with pres ervation on 06/07/[address] Lawson. According to ACC/AHA guidelines, the patient does not meet criteria for additional testing. Medication management recommendations: The patient was advised to continue all usual med ications except as noted in Patient Instructions (After Visit Summary given to pt) Pre-procedure antibiotic recommendation: Vancomycin 1 gm IV infused over 1 hour (PCN allerg y and/or hx MRSA) (1.5 gm if pt > 90 Kg) + MRSA history. COPD - mild, is not being treated with meds or inhalers; no recent URIs; wheezing on exa m that clears with coughing. She has no sob/dyspnea; O2 sats 96% on room air. CVA - SAH, 2007: Stable - QUALITY CONTROL TESTER shunt (right) s/p hydrocephalous in 2008. She is stable, lives independently, including driving. She has extreme anxiety r/t surgery tomorrow d/t f ear of another stroke. She denies GRIFFIN and depression. COPD: Mild, not taking any inhalers or medications. Denies recurrent respiratory infe ctions. Tobacco Dependence: Has increased the number of cigarettes she smokes from 1.5 ppd to c lose to 2 ppd; pt verbalizes extreme anxiety about tomorrow's surgery. Recommended she cut b ack today if possible with recommendations to consider cessation after surgery. Hx of HTN that she states resolved after her stroke. She was also taken off simvastatin one month ago for normalization of her lipid panel. She was originally slightly hypertensi ve on arrival to the clinic; BP down to 107/70 at end of visit. She and family report resol ution of almost all health problems after recovery from her stroke in 2008. The patient is stable / optimized for surgery. Additional testing/optimization is not nee ded. Thank you for the opportunity to contribute to this patient's care. GRANT Joy FNP [facility] PREOPERATIVE MEDICINE CLINIC AT [facility] 4TH FLOOR DAY STAY [address] [facility] [address] I counseled the pt regarding perioperative risk (cardiac/bleeding/ DVT/ respiratory failur e/ infection, etc) and methods to mitigate risk. I advised the patient regarding NPO requir ements, hydration before surgery, showering, general body hygiene. All pre-procedure instru ctions given to the patient (after-visit summary). All of patient's questions were addresse d. The patient verbalized understanding of the instructions given. documented in this encounter Procedure Notes Other, Faculty - 06/06/2014 10:41 PM PDTAssociated Order(s): 12 LEAD ECGElectronically sign ed by Faculty Other at 06/06/2014 10:41 PM PDTOther, Faculty - 06/06/2014 3:00 PM PDTAssoci ated Order(s): LAB REPORTS d ocumented in this encounter Miscellaneous Notes Scan - Other, Faculty - 06/06/2014 3:00 PM PDTElectronically signed by Faculty Other at 3:00 PM PDTdocumented in this encounter Plan of Treatment + + +--------+ + + | Name | Type | Priori | Associated Diagnoses | Order Schedule | | | | ty | | | + + +--------+ + + | COMMUNICATION TO [facility] | Procedures | Routin | Preop examination | Ordered: 06/06/2014 | | LAB DRAW | | e | | | + + +--------+ + + documented as of this encounter Procedures + +--------+ + + + | Procedure Name | Priori | Date/Time | Associated Diagnosis | Comments | | | ty | | | | + +--------+ + + + | 12 LEAD ECG | Routin | 06/06/2014 | Preop examination | Results for this | | | e | 9:53 AM | | procedure are in the | | | | PDT | | results section. | + +--------+ + + + | LAB REPORTS | | 04/09/2014 | | Results for this | | | | 12:00 AM | | procedure are in the | | | | PST | | results section. | + +--------+ + + + documented in this encounter Results 12 LEAD ECG (06/06/2014 9:53 AM PDT) + + + + + + | Component | Value | Ref Range | Performed | Pathologist | | | | | At | Signature | + + + + + + | VENTRICULAR | 82 | bpm | [facility] | | | RATE | | | OF | | | | | | CARDIOLOGY | | + + + + + + | ATRIAL RATE | 82 | bpm | [facility] | | | | | | OF | | | | | | CARDIOLOGY | | + + + + + + | P-R | 168 | ms | [facility] | | | INTERVAL | | | OF | | | | | | CARDIOLOGY | | + + + + + + | P AXIS | 68 | deg | [facility] | | | | | | OF | | | | | | CARDIOLOGY | | + + + + + + | QRS | 90 | ms | [facility] | | | DURATION | | | OF | | | | | | CARDIOLOGY | | + + + + + + | QT | 388 | ms | [facility] | | | | | | OF | | | | | | CARDIOLOGY | | + + + + + + | QTC-ANTOINETTE | 453 | ms | [facility] | | | | | | OF | | | | | | CARDIOLOGY | | + + + + + + | R AXIS | 18 | deg | [facility] | | | | | | OF | | | | | | CARDIOLOGY | | + + + + + + | T AXIS | 55 | deg | [facility] | | | | | | OF | | | | | | CARDIOLOGY | | + + + + + + | ECG | SINUS RHYTHM | | [facility] | | | IMPRESSION | Electronically signed | | OF | | | | by: TESHA HARRISON | | CARDIOLOGY | | | | 06-06-2014 22:26:17 | | | | + + + + + + + + | Specimen | + + | | + + + + + | Narrative | Performed At | + + + | | [facility] | | | CARDIOLOGY | + + + + + | Procedure Note | + + | Alyssa Liu - 06/06/2014 10:41 PM PDT | + + + + + + + | Performing | Address | City/State/Zipcode | Phone Number | | Organization | | | | + + + + + | [facility] | [address] | [place], [place] | | | CARDIOLOGY | [address] | [address] | | + + + + + LAB REPORTS (04/09/2014 12:00 AM PST) + + + | Narrative | Performed At | + + + | | | | | | + + + + + | Procedure Note | + + | Alyssa Liu - 06/06/2014 3:00 PM PDT | + + documented in this encounter Visit Diagnoses + + | Diagnosis | + + | Preop examination - Primary Preoperative examination, unspecified | + + documented in this encounter
--- OUTSIDE RECORDS SUMMARY | ~2019-10-22 | XMS | Encounter Summary ---
Demographics + + + | Address | [address] | | | [place] [address] | + + + | Home Phone | | + + + | Preferred Language | Unknown | + + + | Marital Status | | + + + | Buddhism Affiliation | Unknown | + + + | Race | White | + + + | Ethnic Group | Not or | + + + Author + + + | Author | [facility] | | | and [place] | + + + | Organization | [facility] | | | [...] Team Providers + +------+ + | Care Websphere Commerce Developer Name | Role | Phone | + [...] | (Primary Dx) | | | | [place], | [place], [place] | | | | | [place] [address] | [address] | | | | | [phone] | | | +--------+ + + + [...]
--- OUTSIDE RECORDS SUMMARY | ~2019-10-22 | XMS | Encounter Summary ---
Demographics + + + | Address | [address] | | | [place] [address] | + + + | Home Phone | | + + + | Preferred Language | Unknown | + + + | Marital Status | | + + + | Scientology Affiliation | Unknown | + + + | Race | White | + + + | Ethnic Group | Not or | + + + Author + + + | Author | [facility] | | | and [place] | + + + | Organization | [facility] | | | [...] Team Providers + +------+ + | Care Fuel Agent Name | Role | Phone | + +------+ + | Lance Pandya DO | PCP | | + +------+ + Reason for Visit +--------+--------+ + | Reason | Onset | Comments | | | Date | | +--------+--------+ + | Other | 07/30/ | labs needed | | | 2017 | | +--------+--------+ + Encounter Details +--------+ + + + + | Date | Type | Department | Care Team | Description | +--------+ + + + + | 07/30/ | Telephone | [facility] | Chana Luu, | Other (labs needed) | | 2016 | | CARDIOLOGY [address] | MD [address] | | | | | [place], | [place] | | | | | [place] [address] | [id number] | | | | | [phone] | | | +--------+ + + + [...] Telephone Encounter - Lucille Costa RN - 07/30/2016 12:10 PM PDTSheryl notified ....... ....................................Lucille Costa RN on 07/30/16 at 12:11 elephone Encounter - Lucille Costa RN - 07/30/2016 9:21 AM PDTStress test is scheduled for 08/06/16, order is in EPIC ...........................................Lucille Costa RN on 07/30/16 at 9: 21 elephone Encounter - Lucille Costa RN - 07/30/2016 9:21 AM PDT----- Message from Chana Luu MD sent at 07/29/2016 17:34 PDT ----- Please add the lipid and hepatic panel when she comes in for her stressElectronically shayy d by Lucille Costa RN at 07/30/2016 9:21 AM PDTdocumented in this encounter Plan of Treatment Not on filedocumented as of this encounter Results Hepatic Function Panel (08/06/2016 8:49 AM PDT) + +-------+ + + + | Component | Value | Ref Range | Performed | Pathologist | | | | | At | Signature | + +-------+ + + + | Bilirubin | 0.7 | 0.1 - 1.5 mg/dL | [facility] | | | Total | | | [facility] | | | | | | MEDICAL | | | | | | CENTER - | | | | | | LABORATORY | | + +-------+ + + + | Total | 7.5 | 6.0 - 7.8 g/dL | [facility] | | | Protein | | | [facility] | | | | | | MEDICAL | | | | | | CENTER - | | | | | | LABORATORY | | + +-------+ + + + | Albumin | 4.1 | 3.2 - 5.0 g/dL | [facility] | | | | | | [facility] | | | | | | MEDICAL | | | | | | CENTER - | | | | | | LABORATORY | | + +-------+ + + + | AST | 18 | 10 - 42 U/L | [facility] | | | | | | [facility] | | | | | | MEDICAL | | | | | | CENTER - | | | | | | LABORATORY | | + +-------+ + + + | ALT | 18 | 6 - 45 U/L | [facility] | | | | | | [facility] | | | | | | MEDICAL | | | | | | CENTER - | | | | | | LABORATORY | | + +-------+ + + + | Alkaline | 78 | 40 - 110 U/L | [facility] | | | Phosphatase | | | [facility] | | | | | | MEDICAL | | | | | | CENTER - | | | | | | LABORATORY | | + +-------+ + + + | Globulin | 3.4 | 2.1 - 3.8 g/dL | [facility] | | | | | | [facility] | | | | | | MEDICAL | | | | | | CENTER - | | | | | | LABORATORY | | + +-------+ + + + | Albumin/Odalys | 1.2 | 0.8 - 2.0 | [facility] | | | bulin Ratio | | | [facility] | | | | | | MEDICAL | | | | | | CENTER - | | | | | | LABORATORY | | + +-------+ + + + | Bilirubin, | 0.10 | 0.00 - 0.20 | [facility] | | | Direct | | mg/dl | [facility] | | | | [...] [address] | [place] | [phone] | | [facility] | | [address] | | | - LABORATORY | | | | + + + + + Lipid Panel (08/06/2016 8:49 AM PDT) + + + + + + | Component | Value | Ref Range | Performed | Pathologist | | | | | At | Signature | + + + + + + | Triglycerid | 114 | 35 - 160 mg/dL | [facility] | | | es | | | [facility] | | | | | | MEDICAL | | | | | | CENTER - | | | | | | LABORATORY | | + + + + + + | Cholesterol | 250 (H) | 150 - 200 mg/dL | [facility] | | | | | | [facility] | | | | | | [facility]ICAL | | | | | | CENTER - | | | | | | LABORATORY | | + + + + + + | HDL | 58Comment: New HDL | 28 - 83 mg/dL | [facility] | | | | Reference Range as of | | [facility] | | | | October 31, 2014 | | MEDICAL | | | | Values may be 10-20% | | CENTER - | | | | lower with new, | | LABORATORY | | | | standardized method. | | | | + + + + + + | Chol/HDL | 4.3 | | [facility] | | | Ratio | | | [facility] | | | | | | MEDICAL | | | | | | CENTER - | | | | | | LABORATORY | | + + + + + + | LDL, | 169 (H) | <=130 mg/dL | [facility] | | | Calculated | | | [facility] | | [...] + + | [facility] | [address] | [place] | [phone] | | [facility] | | [address] | | | - LABORATORY | | | | + + + + + documented in this encounter Visit Diagnoses + + | Diagnosis | + + | Coronary artery disease involving [place] coronary artery of [place] heart without | | angina pectoris - Primary | + + | PVD (peripheral vascular disease) (HCC) Peripheral vascular disease, unspecified | + + documented in this encounter"
--- OUTSIDE RECORDS SUMMARY | ~2019-10-22 | XMS | Encounter Summary ---
Demographics + + + | Address | [address] | | | [place] [address] | + + + | Home Phone | | + + + | Preferred Language | Unknown | + + + | Marital Status | | + + + | Confucianism Affiliation | MET | + + + | Race | White | + + + | Ethnic Group | Not or | + + + Author + + + | Author | [facility] | + + + | Organization | [facility] | + + + | [...] Team Providers + +------+ + | Care Microfilm Machine Operator Name | Role | Phone | + +------+ + | Remington Camacho MD | PCP | | + +------+ + Reason for Visit + +--------+ + | Reason | Onset | Comments | | | Date | | + +--------+ + | Phone communication | 01/01/ | | | | 2014 | | + +--------+ + Encounter Details +--------+ + + + + | Date | Type | Department | Care Team | Description | +--------+ + + + + | 01/01/ | Telephone | Neurosurgery at | Paramjit Huber MD | Phone communication | | 2014 | | [facility] [address] | [address] | | | | | e [place] for | [place], [place] | | | | | Health and Healing, | [address] | | | | | [facility] | [phone] | | | | | [place], [place] | | | | | | [address] | | | | | | [phone] | | | +--------+ + + + [...] Notes Telephone Encounter - Park Ball - 01/01/2015 2:54 PM PSTPatient scheduled appointm ent for 01/10. elephone Encounter - Nettie Jaramillo PA - 01/01/2015 1:[address] Huber, please schedule th is patient in clinic with Dr Lane to evaluate cranial wound and screw migration. Electro nically signed by ANSON Martinez at 01/01/2015 1:24 PM PSTTelephone Encounter - Nettie Henning PA - 01/01/2015 12:48 PM PSTPt with hx of SAH s/p right pterional craniotomy and clipping of anterior communicating artery aneurysm 10/18/07 and subsequent VPS placement on 04/12/08. Suspect screw migration from aneurysm clipping. Have sent message to Dr Huber regarding clinic follow up and need for imaging. Electronical ly signed by ANSON Martinez at 01/01/2015 12:56 PM PSTTelephone Encounter - Dante Marquez CMA - 01/01/2015 12:35 PM PSTReceived Vm darshana Rosario with Dr. Pandya office. Mariam ent came into office today for check up. During exam. Dr. Pandya noticed that patient has a screw breaking out of Patient's forehead where shunt is placed. No signs of infection, no V isual, change. Just discomfort from where screw has broken through the skin. Please advise documented in this encounter Plan of Treatment Not on filedocumented as of this encounter Visit Diagnoses Not on filedocumented in this encounter"
--- OUTSIDE RECORDS SUMMARY | ~2019-10-22 | XMS | Encounter Summary ---
[...] Team Providers + +------+ + | Care Crystal Growing Technician Name | Role | Phone | [...]
--- OUTSIDE RECORDS SUMMARY | ~2019-10-22 | XMS | Encounter Summary ---
Demographics + + + | Address | [address] | | | [place] [address] | + + + | Home Phone [...] Team Providers + +------+ + | Care Division Service Manager Name | Role | Phone | [...] | | | [facility] | [place], [place] | | | | | Health and Healing, | [address] | | | | | Building [address] | [phone] | | | | | floor [place], [place] | | | | | | [address] | | | | | | [phone] | | | +--------+ + + + [...] Renetta Maher PA - 09/22/2015 12:29 PM [facility] note reviewed (from Dr. Chana Luu). Patient currently requiring oxygen via NC, had MRI in 12/2014. Dr. Luu has cleared her for surgery. Patient is currently off plavix. Patient currently scheduled to see Dr. Huber and [facility] with on 10/03/2015 for clearance. Avani ctronically signed by ANSON Vasquez at 09/22/2015 12:34 PM PDTTelephone Encounter - Park Burnett - 09/19/2015 12:39 PM [facility] chart note received, saved in Media tab. elephone Enc ounter - Park Ball - 09/19/2015 9:48 AM PDTFax to patient's receiving tank operator requesting recent chart note and note of clearance for surgery. Verified successfully sent.Electronic ally signed by Park Ball at 09/19/2015 9:52 AM PDTTelephone Encounter - Niesha Burt PA-C - 09/18/2015 12:17 PM [id number] with h/o aneurysmal SAH 2' acomm artery [...] also benefit from pre-op clearance from her Aerobics Teacher, Dr Bell nettles or surgery. elephone Encounter [...]
--- OUTSIDE RECORDS SUMMARY | ~2019-10-22 | XMS | Encounter Summary ---
Demographics + + + | Address | [address] | | | [place] [address] | + + + | Home Phone [...] Team Providers + +------+ + | Care Grease Machine Worker Name | Role | Phone | [...] | Ave | | | | | IN REPAIR | [facility] | [place], [place] | | | | | SKULL | [address] | [address] | | | | | DEFECT,UP TO | [place], [place] | Phone: | | | | | [address] | [address] | [phone] | | | | | | Phone: | Fax: | | | | | | [phone] | [phone] | | | | | | Fax: | | | | | | | [phone] | | +--------+--------+ + + + + [...] | hemorrhage) (HCC) | | | | 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 on 12/03/17 right sided wound dehisce [...] was seen by Dr Nicolas in [place] [facility] today. She denies any problems with the [...] neoplasm of major salivary glands CAD in [place] artery s/p NSTEMI 12/27/2014; status post stent placement in the mid LAD Chronic pain Continuous tobacco abuse COPD on oxygen at night CVA (cerebral vascular accident) ([facility]) 2007 Essential hypertension GERD (gastroesophageal reflux disease) Goiter MRSA (methicillin resistant staph aureus) culture positive post cariotomy for SAH Otitis media recent abx preadmit Subarachnoid hemorrhage due to ruptured aneurysm ([facility]) 2007 Tobacco dependence acetaminophen 325 mg oral [...] 2) Contact our office or present to [facility] Emergency Department for severe headache not [...] Will plan for patient to return to [facility] when appropriate to consider cranioplasty (syn thes). Appreciate Dr White's assistance with management of right cranial flap eschar as well a s skin/flap coverage when time to consider cranioplasty. ANSON MULLINS NEUROS[facility]ERY AT [facility] [address] Mailcode: [place] [address] Addendum: Dr Diego would like a CT wwo contrast in follow up of infection. She does have history of rash/urticaria following betadine use (which contains iodine). Discussed pre-sheila tment with prednisone and Ms Bell would like to proceed with prednisone and CT. She would like order for CT to go to [facility] in [place], [place]. Will order external scan t hat [...] | + + | SAH (subarachnoid hemorrhage) ([facility]) - Primary Subarachnoid hemorrhage | + + | Acute osteomyelitis of cranium (HCC) | + + documented in this encounter"
--- OUTSIDE RECORDS SUMMARY | ~2019-10-22 | XMS | Encounter Summary ---
Demographics + + + | Address | [address] | | | [place] [address] | + + + | Home Phone [...] Team Providers + +------+ + | Care Work Measurement Engineer Name | Role | Phone | [...] | Surgery Services at | [address] [place], | | | | | [facility] [address] | [place] [address] | | | | | [facility] for | [phone] | | | | | Health and Healing, | | | | | | [address] | | | | | | [place], [place] | | | | | | [address] | | | | | | [phone] | | | +--------+ + + + [...] - 09/14/2018 8:26 AM PDTPatient arrived to [facility] ED closing note elep veronica [...] Good # to reach Florecita at is [phone] Photos sent via email to Dr. White and Ezequiel Heine documented in this encounter Plan of Treatment Not on filedocumented as of this encounter Visit Diagnoses Not on filedocumented in this encounter
--- OUTSIDE RECORDS SUMMARY | ~2019-10-22 | XMS | Encounter Summary ---
Demographics + + + | Address | [address] | | | [place] [address] | + + + | Home Phone [...] + + + | Author | [facility] | + + + | Organization | [facility] | + + + | Address [...] Team Providers + +------+ + | Care Poll Clerk Name | Role | Phone | + +------+ + | Mary Vazquez PA-C | PCP | | + +------+ + Encounter Details +--------+ + + + + | Date | Type | Department | Care Team | Description | +--------+ + + + + | 05/20/ | Telephone | Neurosurgery at | Nettie Jaramillo | | | 2019 | | [facility] [address] | ANSON Smart [address] [facility] | | | | | [facility] for | [facility] | | | | | Health and Healing, | [place], [place] | | | | | Building [address], | [address] | | | | | floor [place], [place] | [phone] | | | | | [address] | | | | | | [phone] | | | +--------+ + + + [...] Telephone Encounter - Nettie Jaramillo PA - 07/10/2018 10:13 AM PDTPatient has arrived t o the ED @ 855 am. Anticipate neurosurgical consultation forthcoming. Closing encounter. TTelephone Encounter - Nettie Jaramillo PA - 07/10/2018 6:59 AM PDTPlease follow up with the family of Ms Bell. If she has exposed hardware, they should bring her to [facility] for a n evaluation, please. (See resident documentation). documented in this encounter Plan of Treatment Not on filedocumented as of this encounter Visit Diagnoses Not on filedocumented in this encounter"
--- OUTSIDE RECORDS SUMMARY | ~2019-10-22 | XMS | Encounter Summary ---
Demographics + + + | Address | [address] | | | [place] [address] | + + + | Home Phone | | + + + | Preferred Language | Unknown | + + + | Marital Status | | + + + | Voodoo Affiliation | MET | + + + [...] Team Providers + +------+ + | Care Finished Hardware Erector Name | Role | Phone | + [...] Description | +--------+---------+ + + + | 09/19/ | Surgery | 6A Intra Op [id number] | Ata White MD | DEBRIDEMENT OF | | 2018 | | [address] | [address] | [place]P, [place] | | | | [address] [facility] | [address] [place], | [place] | | | | Hospital Admitting | [place] [address] | | | | | Desk Located on the | [phone] | | | | | 9th floor | | | | | | [place], [place] | | | | | | [address] | | | +--------+---------+ + + + [...] + + + | Blood Pressure | 111/60 | 09/19/2018 11:31 AM | | | | | PDT | | + + + + + | Pulse | 77 | 09/19/2018 11:31 AM | | | | | PDT | | + + + + + | Temperature | 36.8 C (98.2 F) | 09/19/2018 11:31 AM | | | | | PDT | | + + + + + | Respiratory Rate | 16 | 09/19/2018 11:31 AM | | | | | PDT | | + + + + + | Oxygen Saturation | 94% | 09/19/2018 11:31 AM | | | | | PDT [...] by ENT Brief Hospital Course: Preadmitted to [facility] ED on 09/13 for scalp wound deshicence. The patie nt was taken to the OR on 09/19/2018 for the above procedures. During the procedure, no compl ications were noted. At the end of the procedure, appropriate drain were placed, the patient was extubated, and transferred to the post-anesthesia care unit. Once recovered, the patien t was transferred to the post-surgical cooper where he remained for the rest of the hospitali zation. The patient had no post-operative events The [...] ESTS WILL BE TAKEN ON FRIDAYS OR . Prescriptions sent by mail will take 3 business d ays. Prescriptions to be picked up in person will be ready by the next business day. It is your responsibility to keep [...] prescribed 10/04/2018 10:30 AM MD NITESH Hansen [facility] Otolaryngolo HOW TO REACH US: Tuesday- Tuesday from 8:00am to 4:30pm, call the Otolaryngology clinic at [phone]. After hours, weekends, and holidays, call the [facility] hospital boring machine operator helper at [phone] and as k to have the ENT doctor on-call paged Contact information for after-discharge prison [facility] . Service: Home Health Services Contact information [address], [address] [address] Future Appointments Date Time Provider Department Center 10/04/2018 10:30 AM MD NITESH Hansen [facility] Otolaryngolo Pertinent imaging:In EPIC Pertinent labs: CBC [...] Pertinent microbiology/pathology: CULTURE, BLOOD BACTI & YEAST [facility] [[id number]] [facility] CORE LAB Collected: 09/20/18 0647 Lab Status: Preliminary result Specimen: Blood Updated: 09/22/18 0055 CULTURE RESULT No growth to date. [facility] CORE LAB CULTURE, AFB (ALL SPEC TYPES EXCEPT BLOOD) [[id number]] LAB Collected: 09/19/18 1428 Lab Status: Preliminary result Specimen: Tissue from Head Updated: 09/20/18 0441 Narrative: AFB Smear: AFB not detected CULTURE, TISSUE [[id number]] (Abnormal) KP LAB Collected: 09/19/18 1428 Lab Status: Preliminary result Specimen: Tissue from Head Updated: 09/22/18 0730 CULTURE RESULT Escherichia coliAbnormal LAB Narrative: Culture Report: Rare Escherichia coli . Gram Stain: No squamous epithelial cells Rare polymorphonuclear cells No organisms seen Susceptibility Escherichia coli SUSCEPTIBILITY-GRANT (Preliminary) Ampicillin S Cefazolin S Ciprofloxacin S Gentamicin S Piperacillin/Tazobactam S Tobramycin S Trimethoprim/Sulfa S Linear View CULTURE, FUNGAL EXCEPT BLOOD, SKIN, HAIR, NAIL [[id number]] LAB Collected: 09/19/18 1428 Lab Status: In process Specimen: Tissue from Head Updated: 09/19/18 1453 CULTURE, AFB (ALL SPEC TYPES EXCEPT BLOOD) [[id number]] LAB Collected: 09/19/18 141 Lab Status: Preliminary result Specimen: Swab from Head Updated: 09/20/18 0441 Narrative: AFB Smear: AFB not detected CULTURE, WOUND DEEP W/ ANAEROBE [[id number]] (Abnormal) LAB Collected: 09/19/18 1412 Lab Status: [...] CULTURE, FUNGAL EXCEPT BLOOD, SKIN, HAIR, NAIL [[id number]] LAB Collected: 09/19/18 1412 Lab Status: In process Specimen: Swab from Head Updated: 09/19/18 1454 CULTURE, BLOOD BACTI & YEAST [facility] [[id number]] [facility] CORE LAB Collected: 09/19/18 0604 Lab Status: Preliminary result Specimen: Blood from Antecubital - right Updated: 09/21/18 0 055 CULTURE RESULT No growth to date. [facility] CORE LAB CULTURE, BLOOD BACTI & YEAST [facility] [[id number]] [facility] CORE LAB Collected: 09/18/18 0535 Lab Status: Preliminary result Specimen: Blood from Hand - left Updated: 09/20/18 0055 CULTURE RESULT No growth to date. [facility] CORE LAB CULTURE, BLOOD BACTI & YEAST [facility] [[id number]] [facility] CORE LAB Collected: 09/17/18 09 Lab Status: Preliminary result Specimen: Blood from Hand - left Updated: 09/19/18 0055 CULTURE RESULT No growth to date. [facility] CORE LAB CULTURE, BLOOD BACTI & YEAST [facility] [[id number]] (Abnormal) [facility] CORE LAB Collected: 09/14/18 002 Lab Status: Edited Result - FINAL Specimen: Blood from Peripheral Updated: 09/15/18 0502 CULTURE RESULT [facility] CORE LAB Staphylococcus epidermidisPanic Ref Range: GRAM STAIN Gram Positive BacilliPanic [facility] CORE LAB [facility] CORE LAB Gram positive cocci in clustersPanic Ref Range: Comment: This is an appended report. These results have been appended to a previously yovanny l verified report. Narrative: Growth in Aerobic Bottle - GPB only. Growth in Anaerobic Bottle - GPC and GPB. Organism Identified by Molecular ID, to be confirmed by culture. BLOOD CULTURE WORKUP [[id number]] (Abnormal) LAB Collected: 09/14/1824 Lab Status: Final [...] and Neck Surgery Mail Code PV01 [address] [place] [address] Pager [phone] Consult/Night/Weekend Pager: [phone] documented in this encounter Discharge Instructions Instructions [...] Stain...........: Gram smear performed at [facility]. Culture: Final Report: No growth [...] Please contact the neurosurgery cooper on-call pager [phone] with questions. Saskia Conway MD Neurosurgery PGY1 Pager: [phone] Saskia Tinoco MD - 0 09/21/2018 11:32 AM PDT NEUROSURGERY PROGRESS NOTE Attending Physician: Ata White MD (ENT); Paramjit Huber MD (NSGY) INTERVAL EVENTS: Planning to be discharged tomorrow and stay with her brother in [place] OBJECTIVE: Last 24 hour min/max Temp: 36.7 [...] [P.O.:360] Out: - 09/20 700 - 09/21 0700 In: 700 [P.O.:650] Out: 27 [Drains:27] No [...] Stain...........: Gram smear performed at [facility]. Culture: Final Report: No growth [...] Please contact the neurosurgery cooper on-call pager [phone] with questions. Saskia Conway MD Neurosurgery PGY1 Pager: [phone] Angie Piña PA-C - 09/21/2018 8:23 AM PDT DOS: 09/21/2018 Head and Neck Surgery Inpatient Daily Progress Note: Primary Care Provider: Mary Vazquez PA-C Admission Date: 09/13/2018 GLORIA MARSHA CANTUARD, [id number] Hospital Day #8 SUBJECTIVE INTERVAL EVENTS: - [...] and Neck Surgery Mail Code PV01 [address] [place], [place] [id number] Pager [phone] Consult/Night/Weekend Pager: [phone] Saskia Tinoco MD - 09/20/2018 7:54 AM [...] Completed Shifts No intake/output data recorded. 09/19 0701 - 09/20 0700 In: 2029 [I.V.:2029] Out: 695 [Urine:500; Drains:45] No data [...] Stain...........: Gram smear performed at [facility]. Culture: Final Report: No growth [...] <5cc in the bulb, 45cc/24h. ASSESSMENT/PLAN: Gloria dAhikari is a 68 y.o. female HD#7 with [...] Please contact the neurosurgery cooper on-call pager [phone] with questions. Saskia Conway MD Neurosurgery PGY1 Pager: [phone] Angie Piña PA-C - 09/20/2018 6:58 AM PDT DOS: 09/20/2018 Head and Neck Surgery Inpatient Daily Progress Note: Primary Care Provider: Mary Vazquez PA-C Admission Date: 09/13/2018 GLORIA ADHIKARI, [id number] Hospital Day #7 SUBJECTIVE INTERVAL EVENTS: - No acute events - Was taken to the OR yesterday for removal of cranial mesh, wash out by NSG and scalp rota tion flap by ENT -Dc'saida Zuniga. Continue IV Zosyn for now, will [...] and Neck Surgery Mail Code PV01 [address] [place] [address] Pager [phone] Consult/Night/Weekend Pager: [phone] Hernandez Mistry MD - 09/19/2018 5:58 PM PDTNeurosurgery Post-Op Check 09/19/2018 5:58 PM Examined in 10k Procedure performed: wound revision, mesh explant Awake, alert, oriented to person, place, time Appropriately interactive PERRL, EOMI, FS, TML BUE/BLE 06/25 No drift SILT Incision c/d/i. LAZARA bloody. Please page [phone] with any questions Hernandez Wells M.D. Neurosurgery PGY-2 Angie Piña PA-C - 09/19/2018 8:07 AM PDT DOS: 09/19/2018 Head and Neck Surgery Inpatient Daily Progress Note: Primary Care Provider: Mary Vazquez PA-C Admission Date: 09/13/2018 GLORIA ADHIKARI, [id number] Hospital Day #6 SUBJECTIVE INTERVAL EVENTS: - [...] and Neck Surgery Mail Code PV01 [address] [place] [address] Pager [phone] Consult/Night/Weekend Pager: [phone] Nettie Knowles PA - 09/19/2018 7:21 AM PDT INPATIENT [...] Stain...........: Gram smear performed at [facility]. Culture: Final Report: No growth after 3 days. Final Report 04/29/2008 Corrected CSF Culture Source...............: Cerebrospinal Fluid RLB Gram Stain...........: Gram smear performed at [facility]. Culture: Rare Methicillin resistant Staphylococcus aureus Final ID MRSA Cefazolin R Clindamycin S Erythromycin R Oxacillin R Penicillin R Tetracycline S Trimeth/Sulfa S Vancomycin S Final Report Comment: Test performed at [facility]. 03/07/2008 Corrected CSF Culture Source...............: Cerebrospinal Fluid RLB Gram Stain...........: Gram smear performed at [facility]. Culture: Final Report: No growth after 3 days. Final Report Comment: Test performed at [facility]. 03/03/2008 Corrected CSF Culture Source...............: Cerebrospinal Fluid RLB Gram Stain...........: Gram smear performed at [facility]. Culture: Final Report: No growth after 3 days. Final Report Comment: Test performed at [facility]. 03/03/2008 Corrected Wound Culture Source...............: Skin Abscess RLB Gram Stain...........: Rare Squamous epithelial cells Rare PMN's Rare Gram positive cocci Culture: 1+ Methicillin resistant Staphylococcus aureus Final ID MRSA Cefazolin R Clindamycin S Erythromycin R Oxacillin R Penicillin R Tetracycline S Trimeth/Sulfa S Vancomycin S Final Report Resulted: 03/05/08 RLB ([facility]) [facility] [address] [place] [address] Comment: Test performed at [facility]. CULTURE RESULT Date Value Ref Range Status [...] free tissue flap (08/03/18)no w presenting to [facility] for non-viable flap and concern for underlying [...] wound cultures. Cares per ENT. ANSON MULLINS [facility] [address] [address] [phone] ettie Jaramillo PA - 09/18/2018 11:09 AM PDT INPATIENT [...] Stain...........: Gram smear performed at [facility]. Culture: Final Report: No growth after 3 days. Final Report 04/29/2008 Corrected CSF Culture Source...............: Cerebrospinal Fluid RLB Gram Stain...........: Gram smear performed at [facility]. Culture: Rare Methicillin resistant Staphylococcus aureus Final ID MRSA Cefazolin R Clindamycin S Erythromycin R Oxacillin R Penicillin R Tetracycline S Trimeth/Sulfa S Vancomycin S Final Report Comment: Test performed at [facility]. 03/07/2008 Corrected CSF Culture Source...............: Cerebrospinal Fluid RLB Gram Stain...........: Gram smear performed at [facility]. Culture: Final Report: No growth after 3 days. Final Report Comment: Test performed at [facility]. 03/03/2008 Corrected CSF Culture Source...............: Cerebrospinal Fluid RLB Gram Stain...........: Gram smear performed at [facility]. Culture: Final Report: No growth after 3 days. Final Report Comment: Test performed at [facility]. 03/03/2008 Corrected Wound Culture Source...............: Skin Abscess RLB Gram Stain...........: Rare Squamous epithelial cells Rare PMN's Rare Gram positive cocci Culture: 1+ Methicillin resistant Staphylococcus aureus Final ID MRSA Cefazolin R Clindamycin S Erythromycin R Oxacillin R Penicillin R Tetracycline S Trimeth/Sulfa S Vancomycin S Final Report Resulted: 03/05/08 RLB ([facility]) [facility] [address] [place] [address] Comment: Test performed at [facility]. CULTURE RESULT Date Value Ref Range Status [...] tissue flap (08/03/18) now pres enting to [facility] for non-viable flap and concern for underlying infection/involvement of mesh cranioplasty.Plan for combined surgery (ENT+ NSG) tomorrow. PLAN: OR tomorrow for wound washout, explant of cranioplasty, flap per ENT. NPO after MN. Type and Screen; INR; CBC; BMP. ABX (Zosyn + Vanc) per primary service. Hold prophylactic lovenox. Pre op note forthcoming. ANSON MULLINS [facility] [address] [address] [address] Saskia Tinoco MD - 09/18/2018 10:58 AM [...] Saskia Conway MD Neurological Surgery R1 Pager: [phone] Angie Piña PA-C - 09/18/2018 8:02 AM PDT DOS: 09/18/2018 Head and Neck Surgery Inpatient Daily Progress Note: Primary Care Provider: Mary Vazquez PA-C Admission Date: 09/13/2018 GLORIA ADHIKARI, [id number] Hospital Day #5 SUBJECTIVE INTERVAL EVENTS: - [...] erythema, no exposed mesh LABS: Recent Labs 09/13/18204209/15/1857 09/16/18 0924 09/17/18 0810 NA 137 140 [...] and Neck Surgery Mail Code PV01 [address] [place] [address] Pager [phone] Consult/Night/Weekend Pager: [phone] Carlos Eduardo Alfonso MD - 0 09/17/2018 10:17 AM PDT DOS: 09/17/2018 Head and Neck Surgery Inpatient Daily Progress Note: Primary Care Provider: Mary Vazquez PA-C Admission Date: 09/13/2018 GLORIA ADHIKARI, [id number] Hospital Day #4 SUBJECTIVE INTERVAL EVENTS: - [...] erythema, no exposed mesh LABS: Recent Labs 09/13/18204209/15/1857 09/16/18 0924 09/17/18 0810 NA 137 140 [...] - Head and Neck Surgery, PGY1 Pager [phone] Overnight/weekend consults pager [phone] I saw and evaluated the patient. I agree with the findings and the plan of care as low benitez in the resident/provider note. Carlos Eduardo Maher MD [facility] Assistant Head and Neck Surgical Oncology Microvascular Reconstructive [...] RLE: 5/5 HF/KE/DF/PF LLE: 5/5 HF/KE/DF/PF SILT Right crani mesh cranioplasty with [...] Please contact the neurosurgery cooper on-call pager [phone] with questions. Alvin Mcclure MD Neurosurgery PGY1 Pager [phone] i, Carlos Eduardo Donald MD - 09/16/2018 8:36 AM PDT DOS: 09/16/2018 Head and Neck Surgery Inpatient Daily Progress Note: Primary Care Provider: Mary Vazquez PA-C Admission Date: 09/13/2018 GLORIA MARSHA ONOFRE, [id number] Hospital Day #3 SUBJECTIVE INTERVAL EVENTS: - [...] the resident/provider note. Carlos Eduardo Maher MD Health Center Assistant Head and Neck Surgical Oncology Microvascular Reconstructive [...] LUE: 5/5 D/B/T/HG RLE: 5/5 HF/KE/DF/PF LLE: 55 HF/KE/DF/PF SILT Right crani mesh cranioplasty with [...] Please contact the neurosurgery cooper on-call pager [phone] with questions. Brenda Barillas MD Neurosurgery PGY-1 Pager: [phone] Associated attestation - Alfreda Mccollum MD - 09/16/2018 10:52 AM PDTI agree with the re sident note above. Any changes if any are noted below. Alfreda Mccollum MD Skull Base Fellow Department of Neurological Surgery [facility] [place] Angie French PA-C - 09/15/2018 8:35 AM PDT DOS: 09/15/2018 Head and Neck Surgery Inpatient Daily Progress Note: Primary Care Provider: Mary Vazquez PA-C Admission Date: 09/13/2018 GLORIA ADHIKARI, [id number] Hospital Day #2 SUBJECTIVE INTERVAL EVENTS: No [...] ANGIE FRENCH PA-C Otolaryngology-Head and Neck Surgery [facility] [place] Pager [phone] Shelly Jenkins RT - 09/14/2018 2:59 PM PDTClean, dry, and intact. Pt denies pain. No signs of extravasation. F lushed pre & post IV contrast with normal saline. documented in this encoun ter H&P Notes Dillan Bridges MD - 09/15/2018 10:04 AM PDT Neurosurgery Consult Date: 09/15/2018 Author: Dillan Bridges MD Admitting Physician: Ata White MD HPI/Interval Update: Golria Adhikari is a 68 y.o. female evaluated [...] nning. Past Histories Allergies: Allergies Allergen Reactions [place] Tar Hives Betadine [Povidone-Iodine (With Soap)] Rash Cipro [Ciprofloxacin] Nausea and Vomiting Codeine Hcl Nausea and Vomiting Sulfa (Sulfonamide Antibiotics) Erythema Past Surgical History Procedure Laterality Date Partial thyroidectomy Right Hysterectomy Bladder suspension 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 Contracts Attorney shunt Tympanoplasty Right 1987 Lumpectomy of left breast 1979 Coronary stent placement 12/28/2014 status post stent placement in the mid LAD Removal of svp monetization shunt Cholecystectomy 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 Blood Gas No results for input(s): FIO2, PH, PCO2, PO2, HCO3, [id number], K8AKWOMU, Y4GZIJNZP in the l ast 720 hours. CSF [...] Stain...........: Gram smear performed at [facility]. Culture: Final Report: No growth after 3 days. Final Report 04/29/2008 CSF Culture Source...............: Cerebrospinal Fluid RLB Gram Stain...........: Gram smear performed at [facility]. Culture: Rare Methicillin resistant Staphylococcus [...] scalp rotational flap, we will be availabl e Dillan Bridges MD Neurosurgery, PGY-2 Pager [phone] Risk and Morbidity Patient Risk Modifiers - Including but not limited to. Age: 68 y.o. female DNR: Full Code Transfer status/urgency : From Outside Hospital : From [facility] ER: Symptom Onset: More than 12 hours (09/13/18 7) Patient Acuity: 3 (09/13/182036) Destination: Acute (09/13/182036) Palliative/end of Life Care :No First GCS and if Mechanically Ventilated/Intubated: Best Motor Response: 6-->(M6) obeys commands (09/13/182036) Best Verbal Response: 5-->(V5) oriented (09/13/182036) Best Eye Response: 4-->(E4) spontaneous (09/13/182036) Score ([place] Coma Scale): 15 (09/13/182036) Last GCS and if Mechanically Ventilated/Intubation: Best Motor Response: 6-->(M6) obeys commands (09/14/18 1230) Best Verbal Response: 5-->(V5) oriented (09/14/18 1230) Best Eye Response: 4-->(E4) spontaneous (09/14/18 1230) Score (Chen Coma Scale): 15 (09/14/18 1230) Comatose State: If GCS<9 Then patient by definition is in a comatose state Score ([place] Coma Scale) Min: 15 Max: 15 Loss [...] weeks. Continuous tobacco abuse Coronary arteriosclerosis in quileute artery 03/06/2015 History of non-ST elevation myocardial [...] wound infection. Per ENT notes "remote SAH 2/ ruptured A-comm aneurysm with subsequent development of [...] facial drooping at home and went to [facility] ED, CT head that was reportedly negative. At ED it was noted she had foul smelling disch arge from wound, contacted her [facility] ENT and referred to [facility] ED. No records of ED visit on [...] CMP WNL, lactate 1.4. Imaging from OSH ([facility] [place]) being pushed ENT evaluated and await final recs Once stable, the patient was transferred to the Emergency Department Observation Unit with a diagnosis of possible surgical wound infection for continuation of care including observat ion PAST MEDICAL HISTORY: 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/p NSTEMI 12/27/2014; status post stent [...] Bladder suspension 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 Contracts Attorney shunt Tympanoplasty Right 1987 Lumpectomy of left breast 1978 Coronary stent placement 12/28/2014 status post stent placement in the mid LAD Removal of svp monetization shunt Cholecystectomy MEDICATIONS: Patient's Medications New Prescriptions [...] medications on file ALLERGIES: Allergies Allergen Reactions [place] Tar Hives Betadine [Povidone-Iodine (With Soap)] Rash [...] PMH of CAD, NSTEMI s/p stenet, HTN, SPAR CAP BEVELER D, 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 1. Possible wound infection- no s/s of SIRS/sepsis, afebrile, no leukocytosis, no indicatio n for abx - ENT to re-eval in AM - NPO at [place] - images from OSH being pushed to [...] Disposition: TBD after ENT evaluation ANSON Simon [facility] EMERGENCY DEPARTMENT [address] [place], [place] [id number] documented in this enco unter Procedure Notes [...] dressing columba lied to it. MD CHANDRIKA Hansen/NGUYEN /[id number] signed by Ata White MD at 09/27/2018 2:04 PM PDTWax , MD Ata - 09/22/2018 11:27 AM PDTAssociated Order(s): OPERATION RECORDDate of Service: 0 09/19/2018 Attending Surgeon:Ata White MD Leadership Program Associate(s):Augusto Shaikh MD. Preoperative Diagnosis: Partially necrotic latissimus [...] woken up, extubated, sent to recovery room. Ata White MD MW/MODL /[id number] signed by Ata White MD at 09/26/2018 6:17 PM PDTSan cory, Alfreda Rondon MD - 09/19/2018 5:44 PM PDTAssociated Order(s): OPERATION RECORDProcedure(s ): OPERATION RECORDDate of Procedure: 09/19/18 Attending Surgeon: Alfreda Mccollum MD Leadership Program Associate(s): Diana Richey MD, Dillan Bridges MD Preoperative [...] identified in the preoperative area, and t hen brought to the operative room on [facility]. General anesthesia was induced by the neuroanesthesia team. The eyes were taped shut to prevent corneal abrasion. The patient was placed in the supine position, and all pressure points were carefully padded. The head was secured in the horseshoe headlight adjuster. The hair over the area was clipped. [...] x2. Dillan Bridges MD Neurosurgery, PGY-2 Pager [phone] I certify that I was present for and participated in the critical parts of the procedure. I further certify that I was the principal neurosurgeon for this procedure. Alfreda Mccollum MD Clinical Instructor & Skull Base Fellow [id number] Department of Neurological Surgery [facility], [place] documented in this encounter Consult Notes [...] on stable regimen. Please page clinical pharmacist (#[phone]) or call central inpatient pharmacy ([phone]) with q uestions. Subjective/Objective: Indication: Cranial flap [...] Pertinent cultures/sensitivities: CULTURE, BLOOD BACTI & YEAST [facility] [[id number]] (Abnormal) [facility] CORE LAB Collected: 09/14/18 0025 Lab Status: Edited Result - FINAL Specimen: Blood from Peripheral Updated: 09/15/18 0502 CULTURE RESULT [facility] CORE LAB Staphylococcus epidermidisPanic Ref Range: GRAM STAIN Gram Positive BacilliPanic [facility] CORE LAB [facility] CORE LAB Gram positive cocci in clustersPanic Ref Range: Comment: This is an appended report. These results have been appended to a previously yovanny l verified report. Narrative: Growth in Aerobic Bottle - GPB only. Growth in Anaerobic Bottle - GPC and GPB. Organism Identified by Molecular ID, to be confirmed by culture. BLOOD CULTURE WORKUP [[id number]] (Abnormal) [facility] Collected: 09/14/18 0025 Lab Status: Final result Specimen: Blood from Peripheral Updated: 09/17/18 1105 CULTURE RESULT [facility] Bacillus species, not B anthracisAbnormal Ref Range: [facility] Coagulase negative staphylococcus speciesAbnormal Ref Range: Narrative: Culture Report: Bacillus species, not B. anthracis Coagulase negative Staphylococcus species Growth in Aerobic bottle Growth in Anaerobic bottle Thank you for the consult, Felton RowellD, BCPS Pager [phone] oCourtney pérez R Ph - 09/16/2018 12:19 PM PDT [...] to fourth dose. Please page clinical pharmacist ([phone]) or call central inpatient pharmacy ([phone]) with qu estions. Actual body weight: Weight: [...] Pertinent cultures/sensitivities: CULTURE, BLOOD BACTI & YEAST [facility] [[id number]] (Abnormal) [facility] CORE LAB Collected: 09/14/18 0025 Lab Status: Edited Result - FINAL Specimen: Blood from Peripheral Updated: 09/15/18 0502 CULTURE RESULT [facility] CORE LAB Staphylococcus epidermidisPanic Ref Range: GRAM STAIN Gram Positive BacilliPanic [facility] CORE LAB [facility] CORE LAB Gram positive cocci in clustersPanic Ref Range: Comment: This is an appended report. These results have been appended to a previously yovanny l verified report. Narrative: Growth in Aerobic Bottle - GPB only. Growth in Anaerobic Bottle - GPC and GPB. Organism Identified by Molecular ID, to be confirmed by culture. Thank you for consult, Courtney Mcmullen [facility]. Pager [phone] Julianna Alexander - 0 09/14/2018 11:28 AM PDT Pharmacist Managed Vancomycin: Initial Note Indication: soft tissue infection Goal trough: 10-15 CrCl: 50-60 ml/min Urine output: not collected in the ED Renal function: stable Assessment/Plan: - Start vancomycin 750 mg IV every 12 hours - Pharmacist will order trough level prior to fourth dose. Please page clinical pharmacist ([phone]) or call central inpatient pharmacy ([phone]) with qu estions. Actual body weight: Weight: [...] for the consult, Julianna Zambrano PharmD Candidate 2020 P M Kaden, Carlos Eduardo Donald MD - 09/14/2018 12:21 AM PDTAssociated Order(s): IP CONSULT TO OTOLARYNGOLO GY OTOLARYNGOLOGY/HEAD & NECK SURGERY CONSULT H&P Date: 09/14/2018 Requesting Physician: Meeta Donnelly MD Consult Attending: Carlos Eduardo Maher MD Chief Complaint: foul smell from flap HPI: Gloria Adhikari is a 68yo female with a history of remote SAH 2/ ruptured A- comm aneurysm with subsequent development [...] which date the initial concern by her field care advocate to 08/19/18. She repor ts intermittent right eyelid droop and lip discoordination since discharge but yesterday mellissa yusuf was found to have an acute left sided facial droop so her family brought her to the [facility] emergency department. 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 12/27/2014; status post stent placement in the mid LAD Abnormal LFTs (liver function tests) MRSA (methicillin resistant staph aureus) culture positive post cariotomy for SAH Hemorrhagic stroke (HCC) 2007 aneurysm PONV (postoperative nausea and vomiting) Past Surgical History Procedure Date Partial thyroidectomy Hysterectomy Bladder suspension 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 Contracts Attorney shunt Tympanoplasty 1987 Lumpectomy of left breast 1979 Coronary stent placement 12/28/2014 status post stent placement in the mid LAD Removal of svp monetization shunt Cholecystectomy Social History Tobacco Use Smoking status: Current Every Day Smoker Packs/day: 1.00 Years: 50.00 Pack years: 50.00 Types: Cigarettes Smokeless tobacco: Never Used Tobacco comment: Substance Use Topics Alcohol use: No Alcohol/week: 0.0 oz Drug use: No Family History Problem Relation Additional Family History Mother dementia Cancer Father brain Cancer Brother lung Allergies Allergen Reactions [place] Tar Hives Betadine [Povidone-Iodine (With Soap)] Rash [...] Resident Physician, PGY2 Otolaryngology, H&N Surgery Pager [phone] This patient's history and examination was discussed with me. I agree with the plan of care that has been recommended. Carlos Eduardo Maher MD Health Center Assistant Head and Neck Surgical Oncology Microvascular Reconstructive Surgery [facility] documented in this encount er ED Notes Nancy Scales RN - 09/14/2018 5:15 PM PDTReport to RN on 10K. Patient to 10K via stre tcher with transport and all personal belongings. Nancy Jenkins RN - 09/14/2018 3:15 PM PDTPt returned to uni t Nancy Jenkins RN - 09/14/2018 2:[address] via stretcher with transport reanna Mendez RN - 09/14/2018 2:16 PM PDTIV therapy at bedside. Nancy Reese RN - 09/14/2018 2:05 PM PDTI have assumed care of this patient. DAYNA James, student nurse. Patient resting, bed low and locked, call light in reach.Electronic ally signed by Nancy Scales RN at 09/14/2018 2:07 PM PDTBreanna Mendez RN - 019 2:04 PM PDTI have relinquished care of this patient. Breanna Sol RN - 09/14/2018 1:[address] t o have IV access, 20 G in FA or AC. Unable to obtain IV therapy to be paged. Breanna Sol RN - 09/14/2018 11:33 AM PDTPt appears to be resting comfortably. Appears NAD. RN TCTM. Denies requests or c oncerns at this time. Remington Richardson NP - 09/14/2018 10:44 AM PDTFormatting of [...] PMH of CAD, NSTEMI s/p stenet, HTN, SPAR CAP BEVELER D, SAH from ACOM aneurysm rupture, s/p [...] cranioplasty with the Neurosurgery team 05/09, at [facility] time Dr White/Tseha performed a rotation advancement scalp flap for [...] foul smelling discharge from wound, contacted her [facility] ENT and referred to [facility] ED. No records of ED visit on [...] CMP WNL, lactate 1.4. Imaging from OSH ([facility] in [place]) being pushed ENT evaluated and await final [...] resuming aspirin after surgery Remington Dexter NP [facility] EMERGENCY DEPARTMENT [address] [place] [address] Tclxcafdnnszaj signed by Remington Dexter NP at 09/14/2018 10:55 AM Breanna Sol RN - 09/14/2018 10:34 AM PDTPlease call Home Health when pt is discharging [phone] Kieran Sol RN - 09/14/2018 10:20 AM PDTENT at bedside, consent scanned on unit. Hard copy sent wit ENT provider. Breanna Mack RN - 09/14/2018 9:50 AM PDTPt aware NPO. Breanna Sol RN - 09/14/2018 9:45 AM PDTPer pt O K to speak with daughter, tx into room. Electronically signed by Breanna Mendez RN at 2:14 PM Breanna Sol RN - 09/14/2018 8:00 AM PDTBandage applied by ENT, adrian ball and xeroform. Lisa barbour RN - 09/14/2018 7:37 AM PDTENT at bedside Lisa English RN - 09/14/2018 7:36 AM PDTI maite r elinquished care of this patient. SBAR to Geovanni HUERTAS and Jacob (can stacker)Electronically si gned by Lisa Cordova RN at [...] appears to be at neurol ogical baseline. Elsberry sandwich provided. Lisa English RN - 09/14/2018 1:17 AM PDTProvider at bedsideElec tronically signed by Lisa Cordova RN at 09/14/2018 1:17 AM PDTLisa Cordova RN - 1:05 AM PDTBed: 5B4 Expected date: Expected time: Means of arrival: Comments: Onofre S isa Cordova RN - 09/14/2018 1:03 AM PDTI have assumed care of this patient. SBAR from Idalmis HUERTASE lectronically signed by Lisa Cordova RN at 09/14/2018 1:04 AM PDTIdalmis Cm RN - 08/22 12:54 AM PDTReport to [...] patient was seen at an ED in [place] yesterday for symptoms o f transient [...] the prescription filled. She d rove to [place] today for ENT evaluation as the ED provider in [place] urged her to do so . On [...] weeks. 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 12/27/2014; status post stent placement in the mid LAD Abnormal LFTs (liver function tests) MRSA (methicillin resistant staph aureus) culture positive post cariotomy for SAH Hemorrhagic stroke ([facility]) 2007 aneurysm PONV (postoperative nausea and vomiting) Past Surgical History Procedure Date Partial thyroidectomy Hysterectomy Bladder suspension 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 Contracts Attorney shunt Tympanoplasty 1987 Lumpectomy of left breast 1979 Coronary stent placement 12/28/2014 status post stent placement in the mid LAD Removal of svp monetization shunt Cholecystectomy Medications Prior to Admission Medications [...] daily. Facility-Administered Medications: None Allergies Allergen Reactions [place] Tar Hives Betadine [Povidone-Iodine (With Soap)] Rash [...] 0.72 0.60 - 1.10 mg/dL EGFR - CHADIAN >60 >60 mL/min EGFR NON -CHADIAN >60 >60 mL/min SODIUM, PLASMA (LAB) 137 [...] - 11 mmol/L POTASSIUM CMNT Hemo AST CMNT Hemo BLOOD BANK HOLD TUBE - DON [...] imaging reques eli to be pushed from [facility]. ENT evaluated the patient in the [...] condition. ED Medication Administration from 09/13/20182022 to 09/14/2018 0834 Date/Time Order Dose Route Action 09/14/2018 0148 atorvastatin (LIPITOR) tablet 80 mg 80 mg oral Given 09/14/2018 014 metoprolol succinate (TOPROL-XL) tablet 50 mg 50 mg oral Given 09/14/2018 0148 spironolactone (ALDACTONE) tablet 25 mg 25 mg [...] aware and placing order. 19 11:11 PM PDTAyush Ann RN - 09/13/2018 9:00 PM PDTLabs and one set of cultures ob tained via PIV placement using aseptic technique. Firer Tunnel Kiln attempted to obtain second set of b lood cultures via straight stick to the left hand. During draw pt pulled her hand away unexp ectedly almost causing this auto service writer to stick himself with the needle and pt bled on the floor . Bandage + pressure placed on IV site and blood drops cleaned. Defer second set of BC to charles wright in the visit. Ayush Hill RN - 09/13/2018 8:33 PM PDTPt had a flap procedure done 08/06/18 reversing a cranioplasty. Yesterday pt went to [facility] after her son noticed some left [...] he wanted patient to be seen in [facility]. Pr drove from [facility] today. Respirations regular and unlabored, pt appears [...] prefers the oxymask vs Nasal Cannula (09/14/182038) [facility] IP NURSE HANDOFF: Nesbitt hospital course events: Admit: Admitted to [facility] wi th TIA, transferred to [facility] with infection and nonviable flap (09/13). Hx: [...] home and was admitted to [facility] coming to [facility]. - Encourage increased po intake Barriers to discharge: She will discharge today back to [place]. andoff - Danni Hobson RN - 09/21/2018 11:33 PM PDTNursing Handoff Patient Daily Goal: Go outside to 9th floor (09/17/18815) Patient Specific Preferences: prefers the oxymask vs Nasal Cannula (09/14/182038) [facility] IP NURSE HANDOFF: Nesbitt hospital course events: Admit: Admitted to [facility] wi th TIA, transferred to [facility] with infection and nonviable flap (09/13). Hx: [...] home and was admitted to [facility] coming to [facility]. - Encourage increased po intake Barriers to discharge: She will discharge on Tuesday with her friends and her son will pick her up Tuesday from their house. andoff - Nneka Wesley RN - 09/21/2018 2:41 PM PDTNursing Handoff Patient Daily Goal: Go outside to 9th floor (09/17/18815) Patient Specific Preferences: prefers the oxymask vs Nasal Cannula (09/14/182038) [facility] IP NURSE HANDOFF: Nesbitt hospital course events: Admit: Admitted to [facility] wi th TIA, transferred to [facility] with infection and nonviable flap (09/13). 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 Infection, multiple flap revisions. July 2018 [...] home and was admitted to [facility] coming to [facility]. - Encourage increased po intake Barriers to discharge: She will discharge on Tuesday with her friends and her son will pick her up Tuesday from their house. andoff - Courtney Hankins RN - 09/21/2018 6:44 AM PDTNursing Handoff Patient Daily Goal: Go outside to 9th floor (09/17/18 0816) Patient Specific Preferences: prefers the oxymask vs Nasal Cannula (09/14/182038) [facility] IP NURSE HANDOFF: Nesbitt hospital course events: Admit: Admitted to [facility] wi th TIA, transferred to [facility] with infection and nonviable flap (09/13). 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 Infection, multiple flap revisions. July 2018 [...] TIA at home and was admitted to [facility] b efore coming to [facility]. - Encourage increased po intake Barriers to [...] N - 09/20/2018 6:07 PM PDTAdmitted to [facility] with TIA, transferred to [facility] with infection and nonviable flap (09/13). 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 Infection, multiple flap revisions. July 2018 Wound debridement with Rt latissi mus dorsi flap and replacement of mesh cranioplasty. 09/14: Necrotic flap debrided at bedside by ENT 09/19: Scalp rotational flap done in [place] Nursing Handoff Patient Daily Goal: Go outside to 9th floor (09/17/18 0816) Patient Specific Preferences: prefers the oxymask vs Nasal Cannula (09/14/182038) [facility] IP NURSE HANDOFF: NURSING ASSESSMENT & RECOMMENDATIONS FORWARD Nursing Assessment of Patient Stability Risk: Moderately stable Recommendations Forward: - incision care, - ambulating in hallway with sba - no pivs, now on po antibiotics Barriers to discharge: Probably tuesday lan of Care - Lizet Amor, PT - 09/20/2018 2:08 PM PDTFormatting of this note might be different from the reba rivera Physical Therapy Evaluation [id number] [facility] Day: 7 Date of : 1950 Start [...] underlying infection/involvement of mesh cranioplasty.Blood culture remar kable for coag negative staph + staph epidermidis (obtained 09/14),to OR 09/19 for scalp lida ridement, washout, explant of cranioplasty/flap. (adapted from Dr. Rosalino Conway's 09/20 note) Indication for Physical Therapy Evaluation: concerns for impaired mobility Relevant Precautions: Paged team re: does pt need helmet, given infection, of flap.. . 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/p NSTEMI 12/27/2014; status post stent [...] Bladder suspension 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 Contracts Attorney shunt Tympanoplasty Right 1987 Lumpectomy of left breast 1979 Coronary stent placement 12/28/2014 status post stent placement in the mid LAD Removal of svp monetization shunt Cholecystectomy Present at bedside other than patient and physical therapist: Pt's brother and [id number] w Subjective: Feeling better, has been getting up just fine Living Environment: will disch with her brother and wrwhle-ir-boe to their home in [facility] [id number] will manage wound care. Otherwise pt lives alone in [place] Prior level of function: independent with mobility and gait Equipment: has 2 helmets at home Patient / Family Goal: get better Communication: Greek Barriers: None Pain: no reports of pain. [...] rehabilitation: assessment and treatme nt (5th ed.). [place]: F. P[place]nap. p.254 Functional Mobility and Gait: supine to sit independent Sit to stand independent Gait independent x 500 ft, steady with lateral head turns, 90, 180 and 360 deg turns, negot iating obstacles Outcome Measure: 1. [facility] BASIC MOBILITY Difficulty turning over in [...] A Little - Minimal/Contact Guard Assist/Superv ision [facility] Basic Mobility Total Score 23 Interpretation of [facility] Short Form - Basic Mobility: Predicts discharge post hospitalization ([facility] raw score: 6-24) Home = 20.1 Home with home care = 17.9 [facility] facility = 13.6 Inpatient rehabilitation facility = 13.6 assisted care = 11.5 Susan Ledesma. The use of functional outcome measure in acute care to guide discharg e recommendations. J Acute Retail Team Leader. 2012;3(3):248 Pt Education: Discussed mobility, helmet as [...] independently, plans to disch with luis miguel abel, has a designated family member to manage wound care. Paged first call re: filemon fonseca Left message with case management re: pt's plan to disch home with her brother and sister -in-law on Tuesday. No further acute PT indicated, signing off. Interpretation of [facility] Short Form - Basic Mobility: CMS [...] and ambulate throughout unit with bedside nurse/ FACILITY MECHANIC supervision Discharge Recommendations: Intermittent assistance at discharge [...] shall serve as the discharge summary. Jaylon Amor, PT, DPT Pager: [phone] ussein - Andree Hagen ra, RN - 09/20/2018 11:30 AM PDTNursing Handoff Patient Daily Goal: Go outside to 9th floor (09/17/18 0816) Patient Specific Preferences: prefers the oxymask vs Nasal Cannula (09/14/182038) [facility] IP NURSE HANDOFF: Nesbitt hospital course events: Admit: Admitted to [facility] wi th TIA, transferred to [facility] with infection and nonviable flap (09/13). 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 Infection, multiple flap revisions. July 2018 [...] TIA at home and was admitted to [facility] b efore coming to [facility]. - Encourage increased po intake Barriers to [...] RN - 09/20/2018 1:50 AM PDTNursing Handoff [facility] IP NURSE HANDOFF: Nesbitt hospital course events: Admit: Admitted to [facility] wi th TIA, transferred to [facility] with infection and nonviable flap (09/13). 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 Infection, multiple flap revisions. July 2018 [...] TIA at home and was admitted to [facility] b efore coming to [facility]. - Encourage increased po intake - monitor PVR, last voided at 0600 w/ PVR of 350ml. Barriers to discharge: Pending clinical course andoff - Vida Rogel RN - 09/19/2018 7:02 PM PDTNursing Handoff [facility] IP NURSE HANDOFF: Nesbitt hospital course events: Admit: Admitted to [facility] wi th TIA, transferred to [facility] with infection and nonviable flap (09/13). 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 Infection, multiple flap revisions. July 2018 [...] TIA at home and was admitted to [facility] b efore coming to [facility]. - Encourage increased po intake andoff - Sherita Kirkpatrick R N - 09/19/2018 4:27 PM PDTMezoila Phase I Discharge Criteria (Stable For Transfer): [...] pain medication information: none Functional Epidural: N/A ENFORCEMENT OFFICER: N/A Respiratory: RR: 19 , O2 Sat: 90 % , O2 Delivery: Nasal cannula Breath Sounds: Ex (hx copd) DARIEN: LLL: RUL: RLL: MELISSA No Comment: no hx Cardiac: BP: 118/93 HR: 91 GI: Nausea/Vomiting Status: No Signs/Symptoms: Interventions: Assessment: Comments: denies nausea. 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 Cont nicotine patch Educate on benefits of smoking cessation ssessment & Plan No Barry Alvarez FNP - 09/19/2018 2:34 PM PDTAssociated Problem(s): Cqavar68 pack year smoker. 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 MSSE and was treated with 6 week course of c eftriaxone ssessment & Plan No Barry Alvarez FNP - 09/19/2018 2:28 PM PDTAssociated Problem(s): CAD in quileute lara ryNSTEMI in 2015 s/p mid LAD stent previously on ASA- will defer to neurosurgery for restart ing Last echoMarch 2018 EF 35-40% 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 IP NURSE HANDOFF: [facility]itt hospital course events: Admitted to [facility] with TIA, transferred to [facility] with infection and nonviable flap (09/13). 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 Infection, multiple flap revisions. July 2018 [...] Goal: Go outside to 9th floor (09/17/18 08) Patient Specific Preferences: prefers the oxymask vs Nasal Cannula (09/14/182038) [facility] IP NURSE HANDOFF: Nesbitt hospital course events: Admitted to [facility] with TIA, transferred to [facility] with infection and nonviable flap (09/13). 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 Infection, multiple flap revisions. July 2018 [...] RN - 09/18/2018 12:08 PM PDTNursing Handoff [facility] IP NURSE HANDOFF: Nesbitt hospital course events: Admit: Admitted to [facility] wi th TIA, transferred to [facility] with infection and nonviable flap (09/13). 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 Infection, multiple flap revisions. July 2018 [...] TIA at home and was admitted to [facility] b efore coming to [facility]. - Encourage increased po intake lan of Care - Georgia Bangura, PT - 09/18/2018 10:04 AM PDTPHYSICAL THERAPY CONTACT NOTE: Orders received, chart reviewed,patient is heading to OR on 09/19/18.Patient will be evaluat ed post surgery.RN updated.Patient is ad cadence in room with ambulation-as per conversation edith louise RN. Georgia Bangura,PT [id number] signed by Georgia Bangura PT at 09/18/2018 10:06 AM PDTHandoff - Marni Gracia RN - 09/18/2018 1:42 AM PDTNursing Handoff Patient Daily Goal: Go outside to 9th floor (09/17/18 0816) Patient Specific Preferences: prefers the oxymask vs Nasal Cannula (09/14/182038) [facility] IP NURSE HANDOFF: Nesbitt hospital course events: Admitted to [facility] with TIA, transferred to [facility] with infection and nonviable flap (09/13). 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 Infection, multiple flap revisions. July 2018 [...] in Rt hand on 09/18. OK per armacy to run the Vanco and Zosyn together. - Please take pt outside to 9th floor deck daily if possible - Monitor for signs of stroke. Pt had TIA at home and was admitted to [facility] b efore coming to [facility].(left side droop) - Encourage increased po intake [...] prefers the oxymask vs Nasal Cannula (09/14/182038) [facility] IP NURSE HANDOFF: Nes[facility]itt hospital course events: Admitted to [facility] with TIA, transferred to [facility] with infection and nonviable flap (09/13). 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 Infection, multiple flap revisions. July 2018 [...] TIA at home and was admitted to [facility] b efore coming to [facility].(left side droop) - Encourage increased po intake [...] prefers the oxymask vs Nasal Cannula (09/14/182038) [facility] IP NURSE HANDOFF: Nesbitt hospital course events: Admit: Admitted to [facility] wi th TIA, transferred to [facility] with infection and nonviable flap (09/13). 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 Infection, multiple flap revisions. July 2018 Wound debridement with Rt latissi mus dorsi flap and replacement of mesh cranioplasty. 09/14: Necrotic flap debrided at bedside by ENT SAFETY Patient/Family Target: Gloria will not fall Progress to Target: Improving As evidenced by: Gloria is up ad cadence in rm. However continue w/ frequent rounds as she [...] the 9K deck with her brother and [id number] Recommendations Forward: - Scalp rotational flap planned [...] TIA at home and was admitted to [facility] b efore coming to [facility]. - Encourage increased po intake - Bowel Incontinence 09/16- hold ss Barriers to discharge: OR Tuesday andoff - Ashley Garcia RN - 09/17/2018 5:52 AM PDTNursing Handoff [facility] IP NURSE HANDOFF: Nesbitt hospital course events: Admit: Admitted to [facility] wi th TIA, transferred to [facility] with infection and nonviable flap (09/13). 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 Infection, multiple flap revisions. July 2018 Wound debridement with Rt latissi mus dorsi flap and replacement of mesh cranioplasty. 09/14: Necrotic flap debrided at bedside by ENT SAFETY Patient/Family Target: Gloria will not fall Progress to Target: Improving As evidenced by: Gloria is up ad cadence in rm. However continue w/ frequent rounds as she [...] home and was admitted to [facility] coming to [facility]. - Encourage increased po intake - Bowel Incontinence 09/16- hold ss Barriers to discharge: OR Tuesday andoff - Shabana Rogel RN - 09/16/2018 6:19 PM PDTNursing Handoff [facility] IP NURSE HANDOFF: Nesbitt hospital course events: Admit: Admitted to [facility] wi th TIA, transferred to [facility] with infection and nonviable flap (09/13). 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 Infection, multiple flap revisions. July 2018 [...] home and was admitted to [facility] coming to [facility]. - Encourage increased po intake lan of Care - Tom Harman, PT - 09/16/2018 9:26 AM PDTPhysical Therapy Contact Note: Chart reviewed, RN consulted. Per RN, pt currently cleared to be up ad cadence. Plans to go to the OR on , 09/19, will follow up following procedure. Daivd Harman PT, DPT Pager: [phone] andoff - Odette Garcia RN - 09/16/2018 5:31 AM PDTNursing Handoff Patient Daily Goal: Get some rest (09/15/182010) Patient Specific Preferences: prefers the oxymask vs Nasal Cannula (09/14/182038) [facility] IP NURSE HANDOFF: [facility] [...] infec tion. Per ENT notes "remote SAH 03/25 ruptured A-comm aneurysm with subsequent development of a rig ht frontotemporal skull defect, s/pplacement of synthetic cranioplasty 11/06. 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 ED, CT head that was reportedly negative. At ED it was noted she had foul smelling disch arge from wound, contacted her [facility] ENT and referred to [facility] ED. No records of ED visit on [...] CMP WNL, lactate 1.4. Imaging from OSH ([facility] [place]) being pushed ENT evaluated and await final recs Once stable, the patient was transferred to the Emergency Department Observation Unit with a diagnosis of possible surgical wound infection for continuation of care including observat ion SAFETY Patient/Family Target: Gloria will ambulate safely ad cadence Progress to Target: Improving As evidenced by: Gloria is up ad cadence in . Continue to [facility] as she has occassionally endorsed blurry v ision and need for help with line management. Recommendations Forward: ox4 Denies pain and N/V IV antibiotics - both cultures have come back positive Ad cadence Reg diet Xeroform, telfa and headband over wound Encourage PO intake Barriers to discharge: OR planned on Tuesday lan of Care - Venus Basurto CSWA - 09/15/2018 1:55 PM PDTFormatting of this note might be different from t [place] original. Social Work Psychosocial Assessment Purpose of the Interview: Nurse referral, patient stating that she may not want surgery, wo rried about getting her 'affairs' together Current Living Situation: Patient lives at home by herself in [facility]. Current Social Supports: Patient has a son and daughter in law that live nearby. They stop by in the evenings after work to assist patient with things as needed. Patient has a daugh ter in the [place] area, who stays 'very busy with work.' She has a brother in the [place] area who supports patient as much as able as well. Financial/Insurance status/ Employment/Education or Vocational training: Patient is covered by Medicare. She is retired. No financial concerns discussed. Activities/Spirituality: Not discussed. Medical issues: Patient Active Problem List Diagnosis Chronic obstructive pulmonary disease (HCC) HTN (hypertension) Chronic pain Skull defect Coronary arteriosclerosis in quileute artery History of non-ST elevation myocardial infarction [...] PCP: [facility] [address] [place] [address] Mental health history: Nothing noted in chart [...] (Including coordination of care with other disciplines) AARON paged ENT team, awaiting for call back, to discuss a palliative care consult. Case discussed with bedside nurse. SW offered patient support and encouragement. SW remains available as needed for continued resources and support. Please call or page if needed. JUSTINA Peña, CSWA Drill Press Tender KD[address] [facility] P [id number], [id number] lan of Care - Daniel Wolff i, RCP - 09/15/2018 9:22 AM PDTFormatting of this note might be different from the o riginal. Problem: RT Goals & Interventions Goal: Evaluation Flowsheets (Taken 09/15/2018920) $ Patient Evaluated This Shift?: Yes Note: [...] this report. STATUS FINAL / Dr. BLOSSOM MILELR STATUS FINAL / - - STATUS PRELIMINARY [...] Make a plan and talk to the DrsKimberli (09/14/182038) Patient Specific Preferences: prefers the oxymask vs Nasal Cannula (09/14/182038) [facility] IP NURSE HANDOFF: [facility] [...] infec tion. Per ENT notes "remote SAH 03/25 ruptured A-comm aneurysm with subsequent development of a rig ht frontotemporal skull defect, s/pplacement of synthetic cranioplasty 11/06. 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 ED, CT head that was reportedly negative. At ED it was noted she had foul smelling disch arge from wound, contacted her [facility] ENT and referred to [facility] ED. No records of ED visit on [...] CMP WNL, lactate 1.4. Imaging from OSH ([facility] [place]) being pushed ENT evaluated and await final recs Once stable, the patient was transferred to the Emergency Department Observation Unit with a diagnosis of possible surgical wound infection for continuation of care including observat ion SAFETY Patient/Family Target: Gloria will ambulate safely ad cadence Progress to Target: Improving As evidenced by: Gloria is up ad cadence in . Continue to [facility] as she has occassionally endorsed blurry v [...] | | 09/14/2018 until | | | [facility] | | | discontinued, 1 | [...] and then a dressing applied to it.MELI Hansen/SWAPNILLDD: 09/27/2018 | | 13:25:22DT: 09/27/2018 13:31:49Job #: [id number] | | | |Addendum: This woman had Integra used to reconstruct her scalp. The size of the Integra w as 14 x 5 cm. This was laid into the wound and secured with genoveva and then a dressing columba lied to it. | | | | | | | |Ata White MD | |CHANDRIKA/NGUYEN | | | | | | /[id number] | + + OPERATION RECORD (09/22/2018 11:27 AM PDT) + + | Procedure Note | + + | Ata White MD - 09/22/2018 11:27 AM PDT Date of Service: 09/19/2018 Attending | | Surgeon:Ata White MD Leadership Program Associate(s):Augusto Shaikh MD.Preoperative Diagnosis: | | Partially necrotic [...] | up, extubated, sent to recovery room.MELI Hansen/KATHERINED: 09/26/2018 12:12:19DT: | | 09/26/2018 12:30:21Job #: [id number] | |Ata White MD | |CHANDRIKA/NGUYEN | | | | | | /[id number] | + + CBC (HEMOGRAM) ONLY (09/22/2018 [...] [facility] | [address] | [place] [address] | | | SERVICES, CORE | PARK [...] | | | LABORATORY | | | CHADIAN | | | SERVICES, | | | [...] MDRD equation recommended by the National | [facility] | | Kidney Disease Education [...] [facility] | [address] | [place] [address] | | | SERVICES, CORE | PARK [...] [facility] | [address] | [place] [address] | | | SERVICES, CORE | PARK [...] + + + + | [facility] | [address] | [place] [address] | | | SERVICES, CORE | [address] | | | + + + + + MAGNESIUM, PLASMA (09/21/2018 5:31 AM PDT) + +-------+ + + + | Component | Value | Ref Range | Performed | Pathologist | | | | | At | Signature | + +-------+ + + + | MAGNESIUM,P | 2.1 | 1.6 - 2.6 mg/dL | [facility] | | | LASMA | | | [...] | + + + + + | [facility] | [address] | [place] [address] | | | SERVICES, CORE | RAMSES [...] | | | LABORATORY | | | CHADIAN | | | SERVICES, | | | [...] MDRD equation recommended by the National | [facility] | | Kidney Disease Education [...] | + + + + + | [facility] | [address] | [place] [address] | | | SERVICES, CORE | [address] | | | + + + + + CULTURE, BLOOD BACTI & YEAST [facility] (09/20/2018 6:47 AM PDT) + + + [...] + + + + | [facility] | [address] | [place] [address] | | | SERVICES, CORE | PARK [...] | + + + + + | [facility] | [address] | [place] [address] | | | SERVICES, CORE | RAMSES [...] [facility] | [address] | [place] [address] | | | JOHNSON, RYAN | [address] [...] [facility] | [address] | [place] [address] | | | SERVICES, CORE | PARK [...] | | | LABORATORY | | | CHADIAN | | | SERVICES, | | | [...] MDRD equation recommended by the National | [facility] | | Kidney Disease Education [...] + + + + | [facility] | [address] [facility] | [place] [address] | | | JOHNSON, RYAN | [address] | | | + + + + + OPERATION RECORD (09/19/2018 5:44 PM PDT) + + + | Narrative | Performed At | + + + | Alfreda Mccollum MD 10/03/2018 3:27 PM Date of Procedure: | | | 09/19/18 Attending Surgeon: Alfreda Mccollum, | | | Leadership Program Associate(s): | | | Diana Richey MD, Dillan [...] | | | the operative room on [facility]. General anesthesia was | | | induced by the neuroanesthesia team. The eyes were taped shut to | | | prevent corneal abrasion. The patient was placed in the supine | | | position, and all pressure points were carefully padded. The head | | | was secured in the horseshoe headlight adjuster. The hair over the area was | [...] | Dillan Bridges MD Neurosurgery, PGY-2 Pager [phone] I | | | certify that I was present for and participated in the critical | | | parts of the procedure. I further certify that I was the principal | | | neurosurgeon for this procedure. Alfreda Mccollum MD | | | Clinical Instructor & Skull Base Fellow [phone] Department of | | | Neurological Surgery [facility], [place] | | | | | + + [...] + + + + + | [facility] | [address] | [place], [place] | | | RAÚL JAY OF [facility] | [facility] | [phone] | | | TESTS | | | [...] | | AIRPORT - | | | [facility] | + + + + + + + + | Performing | Address | City/State/Zipcode | Phone Number | | Organization | | | | + + + + + | [facility] | [address] | [place] [address] | | | [place] | | | [...] | polymorphonuclear cells No organisms seen | [place] | + + + + + + [...] + | [facility] | [address] | [place] [address] | | | [place] | | | | + + + [...] bacteria isolated at 6 weeks. AFB | [facility] - | | Smear: AFB not detected | AIRPORT - | | | [place] | + + + + + + + + | Performing | Address | City/State/Zipcode | Phone Number | | Organization | | | | + + + + + | [facility] | [address] | [place] [address] | | | [facility] | | | | + + + [...] + | [facility] | [address] | [place] [address] | | | [place] | | | | + + + [...] + | [facility] | [address] | [place] [address] | | | [place] | | | | + + + [...] + | [facility] | [address] | [place] [address] | | | [place] | | | [...] + + + + | [facility] | [address] | ms | [facility] [...] | [facility] | [address] | [place], [place] | | | CARDIOLOGY | [address] | [address] | | + + + + + [...] [facility] | [address] | [place], [place] | | | MISTY POINT OF CARE | [address] | [address] | | | TESTS | | | | + + + + + CULTURE, BLOOD BACTI & YEAST MICHELLE (09/19/2018 6:04 AM PDT) + + + [...] [facility] | [address] | [place] [address] | | | SERVICES, CORE | RAMSES [...] | | | LABORATORY | | | CHADIAN | | | SERVICES, | | | [...] MDRD equation recommended by the National | [facility] | | Kidney Disease Education Program. Estimated GFR Interpretive | LABORATORY | | Information: <60 mL/min/1.73 sq m Chronic Kidney | SERVICES, [facility] | | Disease <15 mL/min/1.73 sq m [...] + + + + | [facility] | [address] | [place] [address] | | | RYAN ORNELAS | RAMSES [...] [facility] | [address] | [place] [address] | | | SERVICES, CORE | PARK [...] [facility] | [address] | [place] [address] | | | SERVICES, | [address] [...] [facility] | [address] | [place] [address] | | | SERVICES, | [address] [...] + + | [facility] | [address] | [place] [address] | | | SERVICESRYAN | [address] [...] 09:30 09/18/18 | LABORATORY | | | RYAN ORNELAS | + + + + + + + + | Performing | Address | City/State/Zipcode | Phone Number | | Organization | | | | + + + + + | [facility] | [address] | [place] [address] | | | RYAN ORNELAS | [address] [...] | | | LABORATORY | | | CHADIAN | | | SERVICES, | | | [...] | + + + + + | [facility] | [address] | [place] [address] | | | SERVICES, RYAN | [address] | | | [...] + + + + | [facility] | [address] [facility] | [place] [address] | | | SERVICES, CORE | [address] [...] + + + + | [facility] | [address] | [place] [id number] | | | SERVICES, CORE | [address] | | | + + + + + CULTURE, BLOOD BACTI & YEAST [facility] (09/17/2018 9:19 AM PDT) + + + [...] | + + + + + | [facility] | [address] | [place] [address] | | | SERVICES, CORE | [address] | | | + + + + + MAGNESIUM, PLASMA (09/17/2018 8:10 AM PDT) + +-------+ + + + | Component | Value | Ref Range | Performed | Pathologist | | | | | At | Signature | + +-------+ + + + | MAGNESIUM,P | 2.5 | 1.6 - 2.6 mg/dL | [facility] [...] + + + + | [facility] | [address] | [place] [address] | | | SERVICES, CORE | [address] [...] | | | LABORATORY | | | CHADIAN | | | SERVICES, | | | [...] MDRD equation recommended by the National | [facility] | | Kidney Disease Education Program. Estimated [...] | + + + + + | [facility] | [address] [facility] [facility] [address] | [place] [address] | | | SERVICES, CORE | [address] | | | + + + + + MAGNESIUM, PLASMA (09/16/2018 9:24 AM PDT) + +-------+ + + + | Component | Value | Ref Range | Performed | Pathologist | | | | | At | Signature | + +-------+ + + + | MAGNESIUM,P | 2.4 | 1.6 - 2.6 mg/dL | [facility] [...] | + + + + + | [facility] | [address] | [place] [address] | | | SERVICES, CORE | [address] [...] | | | LABORATORY | | | CHADIAN | | | SERVICES, | | | [...] [facility] | [address] | [place] [address] | | | SERVICES, CORE | [address] [...] prior to the next dose, level | [facility] | | ordered for 09:30 09/16/18 | LABORATORY | | | SERVICES, CORE | + + + + + + + + | Performing | Address | City/State/Zipcode | Phone Number | | Organization | | | | + + + + + | [facility] | [address] | [place] [address] | | | SERVICES, CORE | [address] [...] | + + + + + | [facility] | [address] | [place] [address] | | | SERVICES, CORE | [address] [...] | | | LABORATORY | | | CHADIAN | | | SERVICES, | | | [...] MDRD equation recommended by the National | [facility] | | Kidney Disease Education [...] + + + + | [facility] | [address] [facility] [facility] | [place] [address] | | | SERVICES, CORE | [address] [...] Note | + + | Service Account, Zocere Res In Interface - 09/14/2018 3:14 PM [...] by | LABORATORY | | culture. | JOHNSON, RYAN | + + + + + + + + | Performing | Address | City/State/Zipcode | Phone Number | | Organization | | | | + + + + + | [facility] | [address] | [place] [address] | | | SERVICES, RYAN | [address] [...] + | [facility] | [address] | [place] [address] | | | [place] | | | | + + + + + BG-LAC,POC ISTAT (09/13/2018 9:17 PM PDT) + +--------+ + [...] [facility] | | | | | | [facility] J[facility] | | | | | | [...] [facility] | [address] | [place], [place] | | | RAÚL JAY OF [facility] | [address] | [address] | | | TESTS | | | [...] + + + + | [facility] | [address] | [place] [address] | | | RYAN ORNELAS | [address] [...] | + + + + + | [facility] | [address] | [place] [address] | | | JOHNSON, RYAN | [address] [...] | + + + + + | [facility] | [address] | [place] [address] | | | SERVICES, RYAN | RAMSES [...] [facility] | [address] | [place] [address] | | | SERVICES, | [address] [...] [facility] | [address] | [place] [address] | | | SERVICES, CORE | PARK [...] | | | LABORATORY | | | CHADIAN | | | SERVICES, | | | [...] | + + + + + | [facility] | [address] | [place] [address] | | | SERVICES, RYAN | [address] | | | + + + + + ED INFORMATION EXCHANGE (09/13/2018 8:24 PM PDT) + + | Specimen | + + | | + + + + + | Narrative | Performed At | + + + | [facility]NOTIFICATION?09/13/2018 20:23?GLORIA ADHIKARI?MRN: | [facility] | | [id number] Criteria Met 5 Visits In 12 Months [...] E.D. Visit Count (12 mo.) Facility Visits [facility] and | | | [facility] 3 [facility] 2 Total 5 Note: | | | Visits indicate total known visits. Recent Emergency Department | | | Visit Summary Date Facility City State Type Diagnoses or Chief | | | Complaint Sep 13, 2018 [facility] [place] | | | [place] Emergency 10,800. post op comp Sep 12, 2018 [facility]. | | | [place] Emergency Chief Complaint: POST OP ISSUE | | | July 10, 2018 [facility] [place] Emergency | | | 10,800. CRANIAL PLASTY ISSUE 18,400. Disruption of | | | external operation (surgical) wound, not elsewhere classified, | | | initial encounter 18,400. Other specified postprocedural states | | | May 14, 2018 [facility] [place] | | | Emergency 10,800. post-op complications, open head wound | | | post-op 18,400. Other acquired deformity of head Dec 02, | | | [facility] [place] [place] Extradural and | | | subdural abscess, unspecified Headache Chronic obstructive | | | pulmonary disease, unspecified Old myocardial infarction | | | assisted (current) use of aspirin Personal history of nicotine | | | dependence Other nursing home (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 therapy Allergy | | | status to other antibiotic agents status Allergy status to other | | | drugs, medicaments and biological substances status Allergy | | | status to sulfonamides status Recent Inpatient Visit | | | Summary Date Facility City State Type Diagnoses or Chief Complaint | | | Aug 03, 2018 [facility] [place] Ear, Nose, | | | Throat 18,400. Disruption of external operation (surgical) | | | wound, not elsewhere classified, initial encounter July 10, 2018 | | | [facility] [place] Inpatient | | | 18,400. Other specified postprocedural states 18,400. | | | Disruption of external operation (surgical) wound, not elsewhere | | | classified, initial encounter May 14, 2018 [facility] | | | [facility] [place] Neuro Surgery 18,400. Other | | | acquired deformity of head May 08, 2018 [facility] | | | [place] Neuro Surgery 18,400. Other acquired | | | deformity of head 18,400. 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 Nontraumatic subarachnoid hemorrhage, unspecified Dec 03, | | | 2017 [facility] [place] Neuro Surgery | | | 18,400. Other complications of procedures, not elsewhere | | | classified, initial encounter 18,400. Essential (primary) | | | hypertension 18,400. Nontraumatic subarachnoid hemorrhage, | | | unspecified 18,400. Other specified health status 18,400. | | | Other acquired deformity of head 18,400. 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 Constipation, unspecified Care | | | Team There are no care providers on record at this time. [facility] | | | Portal This patient has registered at the [facility] | | | [place] Emergency Department For more information visit: | | | [email or web address] | | | [email or web address] PLEASE NOTE: 1. Any care recommendations and [...] or completeness of information provided. ? 2019 [employer] | | | [employer] - [email or web address] | | + + + + + [...] Visit Count (12 | | mo.)Facility Visits [facility] 3 [facility] 2 | | Total 5 Note: Visits indicate total known visits. Recent Emergency Department Visit | | SummaryDate [facility] State Type Diagnoses or Chief Complaint Sep 13, 2018 [place] | | [facility] [place] Emergency 10,800. post op comp Sep 12, 2018 | | [facility] [place] Emergency Chief Complaint: POST OP ISSUE July 10, 2018 | | [facility] [place] Emergency 10,800. CRANIAL PLASTY ISSUE | | 18,400. Disruption of external operation (surgical) wound, not elsewhere classified, | | initial encounter 18,400. Other specified postprocedural states May 14, 2018 [place] | | [facility] [place] Emergency 10,800. post-op complications, | | open head wound post-op 18,400. Other acquired deformity of head Dec 02, 2017 [facility] | | [place] Emergency Extradural and subdural abscess, unspecified | | Headache Chronic obstructive pulmonary disease, unspecified Old myocardial | | infarction [employer]ary (current) use of aspirin Personal history of nicotine | | dependence Other nursing home (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 therapy Allergy status to other | | antibiotic agents status Allergy status to other drugs, medicaments and biological | | substances status Allergy status to sulfonamides status Recent Inpatient Visit | | SummaryDate [facility] State Type Diagnoses or Chief Complaint Aug 03, 2018 [place] | | [facility] [place] Ear, Nose, Throat 18,400. Disruption of | | external operation (surgical) wound, not elsewhere classified, initial encounter June | | 2018 [facility] [place] Inpatient 18,400. Other | | specified postprocedural states 18,400. Disruption of external operation (surgical) | | wound, not elsewhere classified, initial encounter May 14, 2018 [facility] and | | [facility] [place] Neuro Surgery 18,400. Other acquired deformity of head | | May 08, 2018 [facility] [place] Neuro Surgery 18,400. | | Other acquired deformity of head 18,400. 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 | | Nontraumatic subarachnoid hemorrhage, unspecified Dec 03, 2017 [facility] and | | [facility] [place] Neuro Surgery 18,400. Other complications of procedures, | | not elsewhere classified, initial encounter 18,400. Essential (primary) hypertension | | 18,400. Nontraumatic subarachnoid hemorrhage, unspecified 18,400. Other specified | | health status 18,400. Other acquired deformity of head 18,400. Intracranial | | abscess and granuloma 18,400. Constipation, unspecified Care TeamThere are no care | | providers on record at this time. [employer] patient has registered at the | | [facility] Emergency Department For more information visit: | | [email or web address] PLEASE | | NOTE: 1. Any care [...] to the | | limitations of applicable [employer] Policies. 3. You should consult directly with | | the organization that provided a care guideline or other clinical history with any | | questions about additional information or accuracy or completeness of information | | provided.? 2019 [employer] - [email or web address] | | Allergy status to other antibiotic agents status | | Allergy status to other drugs, medicaments and biological substances status | | Allergy status to sulfonamides status | | | | | | | |Recent Inpatient Visit Summary | |Date Facility City State Type Diagnoses or Chief Complaint | |Aug 03, 2018 [facility] [place] Ear, Nose, Throat | | 18,400. Disruption of external operation (surgical) wound, not elsewhere classified, init ial encounter | | | |July 10, 2018 [facility] [place] Inpatient | | 18,400. Other specified postprocedural states | | 18,400. Disruption of external operation (surgical) wound, not elsewhere classified, ini tial encounter | | | |May 14, 2018 [facility] [place] Neuro Surgery | | 18,400. Other acquired deformity of head | | | |May 08, 2018 [facility] [place] Neuro Surgery | | 18,400. Other acquired deformity of head | | 18,400. Communicating hydrocephalus | | 18,400. Nontraumatic subarachnoid hemorrhage, unspecified | | | |Dec 03, 2017 [facility] [place] Neuro Surgery | | 18,400. [...] providers on record at this time. | |[employer] Portal | |This patient has registered at the [facility] Emergency Departmen t | |For more information visit: [email or web address] | |PLEASE NOTE: | | 1. Any [...] information provided. | | | |? 2019 [employer] - [email or web address] | + + + + + + + | Performing | Address | City/State/Zipcode | Phone Number | | Organization | | | | + + + + + | [facility] | [address] | [place], [place] | [phone] | | [employer] | [address] | [phone] | | + + + + + documented in this encounter Visit Diagnoses Not on filedocumented in this encounter Administered Medications + +--------+---------+------+------+------+ | Medication Order | MAR | Action | Dose | Rate | Site | | | Action | Date | | | | + +--------+---------+------+------+------+ + +---+ | acetaminophen (TYLENOL) tablet | | | 650 mg 650 mg, oral, EVERY 6 | | | HOURS NEEDED, Starting Clarisa | | | 09/14/18 at 0126, Until Tue09/22/18 | | | at 1737, mild pain, [...] | bacitracin 50,000 Units, | Given | 09/20/19 | 1,000 mL | | Surgical | | ringers (TIS-U-YUDELKA) 1,000 mL | | 19 1:47 | | | Site | | INTRAPROCEDURE PRN, Starting Tue | | PM PDT | | | | | 09/19/18 at 1347, Until Tue | | | | | | | 09/19/18 at 1551 | | | | | | + +-------+ + +---+ + +---+---+ | | | +---+---+ + +-------+ +---------+---+ + | bacitracin ointment | Given | 09/20/19 | 1 strip | | Surgical | | INTRAPROCEDURE PRN, Starting Tue | | 19 3:20 | | | Site | | 09/19/18 at 1520, Until Tue | | PM PDT | | | | | 09/19/18 at 1551 | | | | | | + +-------+ +---------+---+ + + +---+ | | | + +---+ | bisacodyl (DULCOLAX) | | | suppository 10 mg 10 mg, rectal, | | | DAILY NEEDED, Starting Fri | | | 09/15/18 at 0844, Until Tue09/22/18 | | | at 1737, 2nd line for no BM in | | | past 2 days OR if no response to | | | MIRALAX or if patient unable to | | | tolerate oral | | + +---+ | | | + +---+ + +-------+ +-------+---+---+ | famotidine (PEPCID) tablet [...] | + +---+ + +-------+ +---------+---+---+ | lactobacillus rhamnosus (GG) [...] | +---+---+ + +-------+ +-------+---+ + | lidocaine-EPINEPHrine | Given | 09/20/19 | 10 mL | | Surgical | | (XYLOCAINE WITH EPINEPHRINE) 1 | | 19 1:48 | | | Site | | %-1:100,000 injection | | PM PDT | | | | | INTRAPROCEDURE PRN, Starting Tue | | | | | | | 09/19/18 at 1348, Until Tue | | | | | | | 09/19/18 at 1551 | | | | | | + [...] | | | | | 09/15/18 at 1430, Until | | | | [...] | | | | | NEEDED, Starting Tue09/15/18 at | | PM PDT | | [...] thrombin 5000 unit topical | Given | 09/20/19 | 5,000 | | Surgical | | solution INTRAPROCEDURE PRN, | | 19 1:47 | Units | | Site | | Starting Tue09/19/18 at 1347, | | PM PDT | | | | | Until Tue09/19/18 at 1551 | | | | | | + [...]
--- OUTSIDE RECORDS SUMMARY | ~2019-10-22 | XMS | Encounter Summary ---
Demographics + + + | Address | [address] | | | [place] [address] | + + + | Home Phone | | + + + | Preferred Language | Unknown | + + + | Marital Status | | + + + | Rastafarian Affiliation | MET | + + + | Race | White | + + + | Ethnic Group | Not or | + + + Author + + + | Author | [facility] | + + + | Organization | [facility] | + + + | [...] Team Providers + +------+ + | Care Wheelchair Van Driver Name | Role | Phone | + [...] | | | | | | | [facility] | | | | | | | [place], | | | | | | | [place] [address] | | | | | | | Phone: | | | | | | | [phone] | | | | | | | Fax: | | | | | | | [phone] | +--------+--------+ + + + + Encounter Details +--------+ + + + + | Date | Type | Department | Care Team | Description | +--------+ + + + + | 10/17/ | Hospital | [facility] [address] | Magnolia Diego MD | | | 2007 - | Encounter | [address] | [address] | | | | | [id number] [facility] | [facility] [place] | | | 11/01/ | | HOSPITAL [place], | [address] | | | 2007 | | [place] [address] | [phone] | | | | | [phone] | | | +--------+ + + + [...] found to have SAH & transferred to [facility]. Pt was intubated and admitted to the [...] Take until gone. Get filled a t [facility]. 100 0 oxycodone immediate release 5 mg Oral Tablet 5-15 mg Oral EVERY 3 HOURS NEEDED 200 0 pravastatin 20 mg Oral Tablet 2 Tab Oral AT BEDTIME until gone 30 0 Current Medication List Not on File Diet: Rec start [facility] soft diet with thin liquids as quiana, [...] in 2 weeks, please call for appointment: [phone] Follow Up Tests: (Tests at [facility] must be entered into [facility]) Condition On Discharge: stable Vital [...] found to have SAH & transferred to [facility]. Pt was intubated and admitted to the ICU, pt got left subclavian triple lumen catheter and bronchoscopy. Pt was taken to the [facility] for clipping of aneurysm for the SAH. Speech therapy, physical therapy, occupation al therapy saw patient. They seemed that she had SNF level needs however no funding. The Tom Xavier spoke extensively with the , Hu, who understands that she ll need [address] home. Discharge Medications: Current Medication List Not on File Diet: Rec start [facility] soft diet with thin liquids as quiana, [...] in 2 weeks, please call for appointment: [phone] Follow Up Tests: (Tests at [facility] must be entered into [facility]) Condition On Discharge: stable Vital [...] printed education materials: nimodipine ins tructions from [employer] and [employer]. Review with patient/family: Understanding of disease/injury/surgical repair: Yes Signs/symptoms that they should report: Yes Understanding of medications and side effects: Yes Activity and diet instructions: Yes Follow-up appointments:Yes Any concerns/fears: Yes Smoking Cessation Counseling/Information was given: Not applicable Additional Instructions: (ex: wound care, tube feeding, trach care, CBG monitoring etc.) If you have any questions or concerns please call Neurosurgery at [phone] any time of day. If you notice [...] Tomorrow. Will f/u as needed. Time spent: 0937 - 5758 LIZ [address] [facility] [address] [place] [address] oMaddy pedraza - 10/22 11:35 AM PDTPT [...] without UE support of FWW with mod COLLEGE OF EDUCATION DEAN of 1 with R trunk danny n and unsteadiness. Transfers min assist with FWW with verbal cues to direct pt with distra ctions. Gait for 90 ft with min assist up to mod assist with FWW with pt getting walker too far ahead and unsteadiness, R trunk lean. Gait without FWW with mod marketing campaign analyst of 1. Assessment: Impression: Pt with motor [...] ft x 1 with min to moderate COLLEGE OF EDUCATION DEAN of 1 with R sidebending and trunk [...] Management Discharge Plan Needs: Nimodipine Details:Referral to [facility] Medication Assistance Program(MAP); application in process Transportation:Daughter Linda Comments: Unable to assist with obtaining pain medications , other Medications for Dc are a vailable OTC or are on Low cost lists at [facility] or [facility] and do not have a Med Assist aven ue. Spouse to access equipment for the home on his own today and [place] [phone] hanna Salinas - 008 11:53 AM PDT [...] discharge plan: TBD Communication / Other: Language: Anguillan Hearing: WFL Vision: eyeglasses See documentation flowsheet [...] with patient and family. Shanna Augustin, PhD, [facility]-ADULT SECONDARY EDUCATION INSTRUCTOR Pager [phone] 10/31/2007 Shanna Fernandez - Angie 10/31/2007 11:49 [...] resu lts and goals. Shanna Augustin, PhD, CCC-ADULT SECONDARY EDUCATION INSTRUCTOR Pager [phone] Pushpa Mcnamara - 10/30 11:49 AM PDTSpoke [...] session: ADL mobility and ADLs. Time spent: 69 - 7597 LIZ RAM[address]REZ OT [facility] [address] [place], [place] [id number] atsnirav, Kita - 008 7:56 AM PDT Neurosurgery Occupational Health Technician Progress Note Hospital Day:13 Author; KITA BUTLER [...] training goals? And DC recommendations. Marleny Chu, FIELD SERVICE TECHNICIAN P[place]LTRY [phone] Seen from [phone] Arlette Simental - 2007 5:21 PM PDTNSICU [...] recommends ideally SNF placement. Case reviewed with [employer] WOMAN. Insurance/Funding: No funding at this time. FMS involved. Patient will not qualify for [facility] caid. Discharge Counseling: TC to at home: Non-urgent voicemail left to return my call re garding discussing future plans for when his goes home. Also, I notified him by message that his is ready to transfer to [facility]. A similar message was also left on his cell phon e. Assessment: Discharge to home with 24 hour assistance. Pt does not have insurance for SNF p lacement. Plan. 1. To transfer to [facility] when a bed is available. 2.Caregiver teaching with PT, OT and raine seth. 3. Care Management will follow. Arlette Lee RN, GNP pgr [phone]. 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 A [...] at this time. [place] Ivory, [place] [id number] un, [employer] - 10/30/2007 5:19 AM PDT [...] Gram Stain ...........: Gram smear performed at [facility]. Culture: Preliminary Report: No growth after 1 [...] Neuro intact. Will likely to [facility] today. PT/OT. José Miguel Kim - 10/29/19 [...] and with 1:1 supervision. P: Continue per ADULT SECONDARY EDUCATION INSTRUCTOR POC Time In:815 Time Out:845 Silvia Salazar M.S. CF-ADULT SECONDARY EDUCATION INSTRUCTOR #[id number] Electronically signed by Isis Wolf [facility]-ADULT SECONDARY EDUCATION INSTRUCTOR at 11/02/2007 7:17 AM PDTMusolomonGertrude rodgers - [...] Gram Stain ...........: Gram smear performed at [facility]. Culture: Preliminary Report: No growth after 1 [...] Gram Stain ...........: Gram smear performed at [facility]. Culture: Final Report: No growth after 3 days. Final Report 10/22/07 CSF Culture Source...............: Cerebrospinal Fluid RLB Gram Stai n...........: Gram smear performed at [facility]. Culture: Final Report: No growth afte r 3 days. Final Report 10/22/07 Blood Culture Source..................: Central Line Blood Result. .................. Final: No growth at 5 days. 10/19/07 CSF Culture Source...............: Ventricular Fluid Cerebrospinal Flu id RLB Gram Stain...........: Gram smear performed at [facility]. Culture: Final Repo rt: No growth after [...] CSF protein 78, WBC 23 and RBC [address]. TCD pending. CT showed the hydrocephalus is [...] continues to be drowsy. OT working with [facility] ed endurance and balance - preliminary [...] aregiver teaching. 2. Care Management will follow. 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 Has increased difficulty with extra stimu li in the room. Jd Edwards Developer Memory: not formally tested, appears WNL for [...] per PM nurse. Pt orien eli to [place], [place]. Pt did not respond to further [...] appropriate Time In: 7:30-Time Out-8:00 Diego Bliss MA,CCC-ADULT SECONDARY EDUCATION INSTRUCTOR Speech Language Pathology [phone] 10/27/2007 urrow, Gertrude - 06/2007 7:25 AM [...] Gram Stain ...........: Gram smear performed at [facility]. Culture: Preliminary Report: No growth after 1 day. Culture examined daily. Report will be updated if growth occurs. Further report to follow. 10/22/07 CSF Culture Source...............: Cerebrospinal Fluid RLB Gram Stai n...........: Gram smear performed at [facility]. Culture: Final Report: No growth afte r 3 days. Final Report 10/22/07 Blood Culture Source..................: Central Line Blood Result. .................. Preliminary: No growth at 4 days. 10/19/07 CSF Culture Source...............: Ventricular Fluid Cerebrospinal Flu id RLB Gram Stain...........: Gram smear performed at [facility]. Culture: Final Repo rt: No growth after [...] Gram Stain ...........: Gram smear performed at [facility]. Culture: Preliminary Report: No growth after 1 [...] 7.47* PCO2 29* PO2 72 HCO3 21 [id number] 22 M9VUAUDH 95.1 [id number] -- FIO2 .4 Chemistries Last 96 Hours [...] confused but pleasant Communication / Other: Language: Anguillan Dentures: N/A Hearing: WFL Vision: WFL Cognitive Screen: Level of alertness: Verbalizes; requres cues to maintain alertness Orientation: Person and year (not month or date) Quality of responses: Impulsive and Confused Command following: Patient follows 75% of commands with minimal verbal cues. Jd Edwards Developer Memory: not formally tested Short Term Memory: [...] appropriate Time In: 8:15-Time Out-8:40 Diego Bliss MA,CCC-ADULT SECONDARY EDUCATION INSTRUCTOR Speech Language Pathology [phone] 10/26/2007 Gertrude Coleman 05/2007 6:40 AM PDT [...] 7.47* PCO2 29* PO2 72 HCO3 21 [id number] 22 J6FKYGJE 95.1 U3HZWRGUI -- FIO2 .4 Chemistries Last 96 Hours [...] Gram Stain ...........: Gram smear performed at [facility]. Culture: Preliminary Report: No growth after 1 day. Culture examined daily. Report will be updated if growth occurs. Further report to follow. 10/22/07 CSF Culture Source...............: Cerebrospinal Fluid RLB Gram Stai n...........: Gram smear performed at [facility]. Culture: Final Report: No growth afte r 3 days. Final Report 10/22/07 Blood Culture Source..................: Central Line Blood Result. .................. Preliminary: No growth at 3 days. 10/19/07 CSF Culture Source...............: Ventricular Fluid Cerebrospinal Flu id RLB Gram Stain...........: Gram smear performed at [facility]. Culture: Final Repo rt: No growth after [...] Gram Stain ...........: Gram smear performed at [facility]. Culture: Preliminary Report: No growth after 1 [...] comm artery aneurysm PMH COPD, HTN, GERD Diet:[facility] soft TF Rx Nutren 1.5@ 35 I/O [...] Ht. 66" Wt 56.8 kg Energy needs: 7112-9235 Kcal( 25-30 Kcal/kg) Protein needs: 74-85 Gm Pro (1.3-1.5 Gm pro/kg) Recommendations for Tube Feeding Product Nutren 1.5 Goal rate 35 Provides 1260 kcal and 50 gm protein Plan While pt still agitated, TF to continue as back-up per ADULT SECONDARY EDUCATION INSTRUCTOR eval Monitor po intake may consider nocturnal TF #[id number] Electronically sign ed by Amelie Byrne at [...] 5. Cognitive evaluation if/when appropriate Diego Bliss MA,CCC-ADULT SECONDARY EDUCATION INSTRUCTOR Speech Language Pathology -[phone] 10/25/2007 iego Bliss - 11:57 AM PDTSpeech Pathology: New orders received and appreciated. ST attempted t o see pt for session. Pt extremely agitated. Nsg requested ST reattempt this afternoon fol lowing administration of medications. ST to follow as able. Thanks, Diego Bliss MA,CCC-ADULT SECONDARY EDUCATION INSTRUCTOR Speech Pathology ksana Das - 10/25/2007 11:08 [...] Gram Stain ...........: Gram smear performed at [facility]. Culture: Preliminary Report: No growth after 1 day. Culture examined daily. Report will be updated if growth occurs. Further report to follow. 10/22/07 CSF Culture Source...............: Cerebrospinal Fluid RLB Gram Stai n...........: Gram smear performed at [facility]. Culture: Final Report: No growth afte r 3 days. Final Report 10/22/07 Blood Culture Source..................: Central Line Blood Result. .................. Preliminary: No growth at 2 days. 10/19/07 CSF Culture Source...............: Ventricular Fluid Cerebrospinal Flu id RLB Gram Stain...........: Gram smear performed at [facility]. Culture: Final Repo rt: No growth after [...] likely effusion GI: Feeding: TF pending, passed [facility] soft swallow study, cont TF til PO [...] Gram Stai n...........: Gram smear performed at [facility]. Culture: Preliminary Report: No growt h after [...] minimal spasm. Continue SAH protocol. Isis Spaulding CCC-ADULT SECONDARY EDUCATION INSTRUCTOR - 008 4:29 PM PDT Speech Dysphagia [...] discharge plan: TBD Communication / Other: Language: Anguillan Hearing: WFL Vision: eyeglasses See documentation flowsheet for vitals and pain assessment/response. Cognitive Screen Level of alertness: alert 100% of visit Orientation: Person Quality of responses: Appropriate with cues, Impulsive and Confused Command followin step oral motor 100% without cues Senior Care Memory: not formally tested Short Term Memory: [...] 16:00 Time Out: 16:30 Isis Wolf M.S., CCC-ADULT SECONDARY EDUCATION INSTRUCTOR #[id number] osé Miguel Das - 10/24/2007 1:17 PM [...] 61* HCO3 27 27 25 23 24 ZUIUB0UME 28 28 26 24 25 J9TKWEFU 98.7* 82.5* 98.5* 97.1 92.0 J3LUFAQLL -- -- -- -- -- FIO2 NG [...] with discharge planning. Arlette Lee RN, G OUTSOLES CHANNEL OPENER pgr [phone]. Oksana De La Rosa - 10/24/2007 9:18 [...] 86 HCO3 21 27 27 25 23 HXVXT0MBF 22 28 28 26 24 A4QBRWML 95.1 98.7* 82.5* 98.5* 97.1 GI: soft, [...] Gram Stai n...........: Gram smear performed at [facility]. Culture: Preliminary Report: No growt h after 1 day. Culture examined daily. Report will be updated if growth occurs. Further report to follow. 10/22/07 Blood Culture Source..................: Central Line Blood Result. .................. Preliminary: No growth at 1 day. 10/19/07 CSF Culture Source...............: Ventricular Fluid Cerebrospinal Flu id RLB Gram Stain...........: Gram smear performed at [facility]. Culture: Final Repo rt: No growth after [...] Gram Stai n...........: Gram smear performed at [facility]. Culture: Preliminary Report: No growt h after [...] 61* HCO3 27 27 25 23 24 ILGYY8CTC 28 28 26 24 25 A2SFGHJP 98.7* 82.5* 98.5* 97.1 92.0 J3JPECKVG -- -- -- -- -- FIO2 NG [...] 61* HCO3 27 27 25 23 24 MYBBR0SOD 28 28 26 24 25 J0GNITJT 98.7* 82.5* 98.5* 97.1 92.0 Z4SELXJVB -- -- -- -- -- FIO2 NG [...] Gram Stai n...........: Gram smear performed at [facility]. Culture: Preliminary Report: No growt h after [...] 61* HCO3 27 27 25 23 24 DYCZC2QWG 28 28 26 24 25 O3NYPRWY 98.7* 82.5* 98.5* 97.1 92.0 H3MCRHQTA -- -- -- -- -- FIO2 NG 100 100 NG NG Assessment and Plan: 57F with respiratory failure s/p crani and clipping for AComm Art. Ane urysm -- Follow-up TCD's -- Continue ventilatory support, abx, gentle diuresis Will d/w staff Thea Mcmahon - 10/23/19 08 9:54 AM PDTSpeech Language Pathology- Contact Note: Pt now intubated. Will sign off. P lease re-order ADULT SECONDARY EDUCATION INSTRUCTOR for speech and swallowing services once extubated and appropriate. Thank you. THEA LIMA M.A., [facility]-ADULT SECONDARY EDUCATION INSTRUCTOR Speech Language Pathologist Pgr: [phone] Humble Mcgrath SUPERVISOR CORE SHOP - 0 10/23/2007 9:43 AM PDTSBT done, pt quite aggitated at this time. [place] score was good at 47 but pt [...] 61* HCO3 27 27 25 23 24 XLBIB7HKA 28 28 26 24 25 B3QSYEOV 98.7* 82.5* 98.5* 97.1 92.0 GI: stooling, [...] RLB Gram Stain...........: Gram smear performed at [facility]. Culture: Final Repo rt: No growth after [...] vasospasm risk. -hyperna- d/c 3% ID/HO: -R [place] site- ? W/ oozing and erythemaa= change [...] Spells with increased urine output last night (FASHION MARKETER ?) ; SG urine = normal ; Na 146 ; on 3% 75/hr ; I/O neg 300ml/24hr, 5.6 L positive for hospital stay ; EVD 10-15 ml/hr (350/24hr) @ 10 cm DVT scan negative Current ICU problem list: SAH, cerebral vasospasm: Neuro checks q1, TDS daily, FASHION MARKETER watch ; q6h Na/K, cont propofo l & fentanyl drip ; sedation vac x2/ day (6am/6pm) ; per neurosurg EVD increased to 15cm [employer] ; SBP: 120-150, HR <100/min (aspiration) pneumonia: [...] RLB Gram Stain...........: Gram smear performed at [facility]. Culture: Preliminar y Report: No growth after 1 day. Culture examined daily. Report will be updated if growth occurs. Further report to follow. Up to Last 5 ABGs in 72 hours: Recent Labs Basename 10/22/07 0130 10/21/07 2200 10/21/07 0300 PH 7.49* 7.51* 7.45* PCO2 31* 31* 33 PO2 86 61* 63* HCO3 23 24 23 NARAC5RAZ 24 25 24 F1ZWRUPA 97.1 92.0 92.1 H5RXZYXBE -- -- -- FIO2 NG NG 6L [...] and 2 oz of puree (oatmeal from [facility] soft mealtray). + oral containm ent and adequate oral prep despite obvious fatigue. + timely swallow response. - cough, - c corbin, - change in voice, - aud pharyngeal pooling, - throat clearing. O2 sats remained betw een 93-96% (with ADULT SECONDARY EDUCATION INSTRUCTOR replacing O2 mask between PO trials). No [...] (Not addressed 10/21/07) P: Recommendations: 1. Continue [facility] soft diet with thin liquids. - upright positioning and 1:1 supervision and assistance with all POs please 2. Will f/u 5x/week for dysphagia therapy services as well as completition of cognitive, sp eech, lang eval as appropriate. (time in: 1000, time out: 1025) THEA LIMA M.A., CCC-ADULT SECONDARY EDUCATION INSTRUCTOR Speech Language Pathologist Pgr: [phone] THEA LIMA CCC-S/LP 10/21/2007 raCandida tineo 9:44 [...] ICU problem list: Neuro checks, TDS daily, FASHION MARKETER watch [employer] [place] SpO2 > 95%, O2 nc, RT [...] 63* 143* 207* HCO3 23 25 23 XVOYY7SJK 24 26 24 S8UQTJVE 92.1 99.0* 99.3* Q6UIHNMIO -- -- -- FIO2 6L simple mask [...] RLB Gram Stain...........: Gram smear performed at [facility]. Culture: Preliminar y Report: No growth after [...] decubitus ulcer prevention. Routine ICU Care: Lines: [place], CVC Sodium goal: 145-155 Feeding: soft mech [...] found to have a SAH. Transferred to [facility] for care. Now s/p A-com aneurysm c [...] go home now." Communication / Other: Language: Anguillan Dentures: Upper denture plate- owns and has. Natural lower dentition in fair condition. Hearing: WFL Vision: eyeglasses See documentation flowsheet for vitals and pain assessment/response. Cognitive Screen Level of alertness: verbalizes Orientation: Person and Time; for PLACE answered "[place]" but unable to provide correct hospital name. "I don't know." for REASON Quality of responses: Intermittently Appropriate with cues but also confused and persever ative Command following: Followed 6/7 1-step oral motor commands Senior Care Memory: not formally tested Short Term Memory: [...] patient and Horacio Rm. Recommendations: 1. Begin [facility] soft diet with thin liquids. - 1:1 assistance with all meals. - 90 degree upright positioning with all meals - check for oral pocketing/residue after meals and use liquid washdown to clear 2. Will f/u 5x/week for dysphagia tx and initiation of speech, language, cognitive eval as appropriate. (time in: 1015, time out: 1100) THEA LIMA M.A., CCC-ADULT SECONDARY EDUCATION INSTRUCTOR Speech Language Pathologist Pgr: [phone] THEA LIMA CCC-S/LP 10/20/2007 Candida Fields 10:14 [...] A-com a neurysm clipping ; suspicious for slag expander involvement ; angio today Last 24 hours: neuro intact, successfully extubated, hemodynamically stable ; EVD: 218ml/2 4hr, anemia, Current ICU problem list: Cont. EVD ; daily TCD ; q1 neuro checks [employer] ; ECHO: hyperdynam, hypovomaemia, SBP > 120-180 [...] 43 PO2 143* 207* HCO3 25 23 RFOBR7MDT 26 24 J4IWXBQU 99.0* 99.3* K5IHNXRPQ -- -- FIO2 .6 80 Chemistries Last [...] RLB Gram Stain...........: Gram smear performed at [facility]. Culture: Preliminar y Report: No growth after [...] RLB Gram Stain...........: Gram smear performed at [facility]. Culture: Preliminar y Report: No growth after 1 day. Culture examined daily. Report will be updated if growth occurs. Further report to follow. Up to Last 5 ABGs in 72 hours: Recent Labs Basename 10/19/07 0148 10/18/07 0820 PH 7.36* 7.34* PCO2 45* 43 PO2 143* 207* HCO3 25 23 KLHFW8KTT 26 24 C4UALPNI 99.0* 99.3* T0UHPOKHD -- -- FIO2 .6 80 Last Ventilator [...] A-com ane urysm clipping ; suspicious for slag expander involvement ; angio today Last 24 hours: improved, follows commands Current ICU problem list: EVD ; daily TCD ; Angio today to eval OWEN/perforators [employer] ; ECHO today to determine card function [...] ground unconscious. The family took her to [facility] ED in [place] where she was fo und to have a SAH. Transferred to [facility] for care. Course: Intubated and on the ventilator. Aspiration. Bronchoscopy done. For angio today. Wi ll wean to extubate after angio. [employer] WOMAN involved. Funding/Insurance: None noted. Home Environment/Equipment: To be assessed. Family/Informal Support System: . , daughter and son-in-law listed as emergen cy contacts. Have come up to [facility]. Needs further assessment. Baseline Function: To be determined. Assessment: Critically ill. Unable to determine discharge plan at this time. PLAN: 1. Angio today. 2. Care Management will follow for timely discharge. Arlette hernandez RN, GNP pgr [phone]. iu Peter Daniel - 10/19/2007 10:47 AM PDTThis patient was treated on the Interventional Neuror adiology (INR) service and we appreciate being involved in the care. If you have any questio ns please do not hesitate to call or page us. Peter Urbina M.D. (pager [phone]) Bob Peraza M.D., Ph.D. Aneurysm well occluded, [...] 43 PO2 143* 207* HCO3 25 23 TNEZW6FJX 26 24 Y5FYBTFR 99.0* 99.3* W7METYVJF -- -- FIO2 .6 80 Last Ventilator [...] and plan of care. MAGNOLIA DIEGO MD [facility] 7C NEURO SCI ICU [address] [place] [address] hemay - 1:07 AM PDTPOST OP note: [...] found to have SAH & transferred to [facility]. Given additional vecuronium and midaz approx 20 [...] PDTSocial Work Note: Pt was transferred to [facility] from [facility] after suffering a subarachnoid hemorrhage. Pt is currently intubated. [employer]SEMBLY[employer] WOMAN met briefly with Pt's daughter - Linda and [id number] on the 7th floor waiting room while they waited to hear whether or not Pt would go to the [place] [facility]. Pt's was not available at the time. ASSEMBLYMAN OR WOMAN explained social work role at [facility] and contact info given. Family also given a hotel packet and info re RV spots on campus. ASSEMBLYMAN OR WOMAN w ill follow as needed. Danni Collins ASSEMBLYMAN OR WOMAN #[id number] signed by Danni Collins at 008 4:00 [...] was intubated, deep suctioned and transferred to [facility] for further care. PMH: HTN, COPD, Asthma, [...] (hypertonic) , 1000 mL, Intravenous, CONTINU OUS, REKDOY VORA B sorbitol liquid 30-60 mL, 30-60 [...] and plan of care. MAGNOLIA DIEGO MD [facility] 7C NEURO SCI ICU [address] [place] [address] Kody Calderon - 10/18/2007 4:15 AM PDT [...] found to have SAH & transferred to [facility]. Given additional vecuronium and midaz approx 20 [...] 12:00 AM BENNY ssociated Order(s): OPERATION RECORD [id number] ONOFRE CASTRO [id number] Date: 10/18/2007 Attending Surgeon: Magnolia Diego M.D. Adult Basic Education Manager(s): Xochitl Davis M.D. Preoperative Diagnosis(es): Subarachnoid [...] aneurysm. Narinder Serrano M.D. VITALIY / ELINA [id number] / [id number] / [id number] / oMagnolia martell - 09/22 12:00 AM PDTAssociated Order(s): TEACHING PHYSICIAN [id number] ONOFRE CASTRO [id number] Date: 10/18/2007 Attending Surgeon: Magnolia Diego M.D. Adult Basic Education Manager(s): Narinder Serrano M.D. Preoperative Diagnosis(es): Subarachnoid [...] Xochitl Davis. Magnolia Diego M.D. AD / [id number] / [id number] / [id number] / documented in this encounte r Miscellaneous [...] 11/02/2007 2:59 PM PDT Scan - Other, [facility] - 11/02/2007 2:59 PM PDT Scan - [...] also dumping increasing amounts of urine. 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 Have sent urine SG and [...] [facility] | [address] | [place], [place] | | | THERAPY | [address] | [address] | | + + + + + | [facility] | [address] | [place], [place] | | | THERAPY | [address] | [address] | | + + + + + [...] [facility] | [address] | [place], [place] | | | THERAPY | [address] | [address] | | + + + + + | [facility] | [address] | [place], [place] | | | THERAPY | [facility] | [address] | | + + + + + [...] [facility] | [address] | [place], [place] | | | THERAPY | [address] | [address] | | + + + + + | [facility] | [address] | [place], [place] | | | THERAPY | [facility] | [address] | | + + + + + [...] [facility] | [address] | [place], [place] | | | THERAPY | [address] | [address] | | + + + + + | [facility] | [address] | [place], [place] | | | THERAPY | [facility] | [address] | | + + + + + [...] [facility] | [address] | [place], [place] | | | THERAPY | [address] | [address] | | + + + + + | [facility] | [address] [facility] | [place], [place] | | | THERAPY | [address] | [address] | | + + + + + [...] [facility] | [address] | [place], [place] | | | THERAPY | [address] | [address] | | + + + + + | [facility] | [address] [facility] | [place], [place] | | | THERAPY | [address] | [address] | | + + + + + [...] [facility] | [address] | [place], [place] | | | THERAPY | [facility] | [address] | | + + + + + | [facility] | [address] | [place], [place] | | | THERAPY | [facility] | [address] | | + + + + + [...] [facility] | [address] | [place], [place] | | | THERAPY | [address] | [address] | | + + + + + | [facility] | [address] | [place], [place] | | | THERAPY | [address] | [address] | | + + + + + [...] + | [facility] | [address] [facility] | [place] [address] | | | PATHOLOGY | [address] | | | + + + + + | [facility] | [address] [place] [address] | [place] [address] | | | PATHOLOGY | [address] [...] | + + + + + | [facility] DEPARTMENT OF | [address] | [place] [address] | | | PATHOLOGY | [address] | | | + + + + + | [facility] DEPARTMENT OF | [facility] | [place] [address] | | | PATHOLOGY | [address] [...] DEPARTMENT OF | [address] | [place] [address] | | | PATHOLOGY | [address] | | | + + + + + | [facility] DEPARTMENT | [address] | [place] [address] | | | PATHOLOGY | [address] [...] [facility] | [address] | [place], [place] | | | THERAPY | [address] | [address] | | + + + + + | [facility] | [address] | [place], [place] | | | THERAPY | [address] | [address] | | + + + + + [...] + + | [facility] | [address] [facility] | [place], [place] | | | THERAPY | [address] | [address] | | + + + + + | [facility] | [address] | [place], [place] | | | THERAPY | [address] | [address] | | + + + + + [...] DEPARTMENT OF | [address] | [place] [address] | | | PATHOLOGY | [address] | | | + + + + + | [facility] | [address] | [place] [address] | | | PATHOLOGY | [address] [...] DEPARTMENT OF | [address] | [place] [address] | | | PATHOLOGY | [address] | | | + + + + + | [facility] DEPARTMENT OF | [address] | [place] [address] | | | PATHOLOGY | [address] [...] (H) | 60 - 99 mg/dL | [facility] | | | PLASMA | | | [...] | + + + + + | [facility] DEPARTMENT OF | [address] | [place] [address] | | | PATHOLOGY | [address] | | | + + + + + | [facility] DEPARTMENT OF | [address] | [place] [address] | | | PATHOLOGY | [address] [...] | [facility] | [address] | [place] [address] | | | PATHOLOGY | [address] | | | + + + + + | [facility] | [address] | [place] [address] | | | PATHOLOGY | [address] | | | + + + + + [facility] LAB PORTABLE TRANSCRANIAL DOPPLER COMPLETE (10/31/2007 1:39 AM PDT) + + + + + + | Component | Value | Ref Range | Performed | Pathologist | | | | | At | Signature | + + + + + + | [facility]ASC LAB | Med Rec No:[id number] | | | | | PORTABLE | [...] AMAccession | | | | | | #[id number]:TRANSCRAN | | | | | | IAL [...] | | | | | UNSIGNED / O'[place] Rula | | | | + + [...] | | THERAPY | | | | SUPERVISOR CORE SHOP | | | | + + + [...] [facility] | [address] | [place], [place] | | | THERAPY | [address] | [address] | | + + + + + | [facility] | [address] | [place], [place] | | | THERAPY | [address] | [address] | | + + + + + [...] | + + + + + | [facility] DEPARTMENT OF | [address] | [place] [address] | | | PATHOLOGY | [address] | | | + + + + + | [facility] DEPARTMENT OF | [address] | [place] [address] | | | PATHOLOGY | [address] [...] DEPARTMENT OF | [address] | [place] [address] | | | PATHOLOGY | [address] | | | + + + + + | [facility] DE[facility] | [address] | [place] [address] | | | PATHOLOGY | [address] [...] | + + + + + | [facility] DEPARTMENT OF | [facility] | [place] [address] | | | PATHOLOGY | [address] | | | + + + + + | [facility] | [address] | [place] [address] | | | PATHOLOGY | [address] [...] [place], | | | | | | SUPERVISOR CORE SHOP | | | | + + + [...] + + | [facility] | [address] [facility] | [place], [place] | | | THERAPY | [address] | [address] | | + + + + + | [facility] | [address] | [place], [place] | | | THERAPY | [facility] | [address] | | + + + + + [...] [facility] | [address] | [place], [place] | | | THERAPY | [address] | [address] | | + + + + + | [facility] | [address] | [place], [place] | | | THERAPY | [facility] | [address] | | + + + + + [...] + | [facility] | [address] [facility] | [place] [address] | | | PATHOLOGY | [address] | | | + + + + + | [facility] DE[facility] | [address] | [place] [address] | | | PATHOLOGY | [address] [...] DEPARTMENT OF | [address] | [place] [address] | | | PATHOLOGY | [address] | | | + + + + + | [facility] DEPARTMENT | [address] | [place] [address] | | | PATHOLOGY | [address] [...] DEPARTMENT OF | [address] | [place] [address] | | | PATHOLOGY | [address] | | | + + + + + | [facility] DE[facility] | [address] | [place] [address] | | | PATHOLOGY | [address] [...] + | [facility] | [address] [facility] | [place] [address] | | | PATHOLOGY | [address] | | | + + + + + | [facility] | [address] [facility] | [place] [address] | | | PATHOLOGY | [address] [...] + + | [facility] | [address] [facility] | [place], [place] | | | THERAPY | [address] | [address] | | + + + + + | [facility] | [address] [facility] | [place], [place] | | | THERAPY | [address] | [address] | | + + + + + [...] | + + + + + | [facility] DEPARTMENT OF | [address] [facility] | [place] [address] | | | PATHOLOGY | [address] | | | + + + + + | [facility] | [address] [facility] | [place] [address] | | | PATHOLOGY | [address] [...] [place], | | | | | | SUPERVISOR CORE SHOP | | | | + + + [...] + + | [facility] | [address] [facility] | [place], [place] | | | THERAPY | [address] | [address] | | + + + + + | [facility] | [address] [facility] | [place], [place] | | | THERAPY | [address] | [address] | | + + + + + [...] + + + + + | [facility] | [address] | [place] [address] | | | PATHOLOGY | [address] | | | + + + + + | [facility] | [address] | [place] [address] | | | PATHOLOGY | [address] [...] + | [facility] | [address] [facility] | [place] [address] | | | PATHOLOGY | [address] | | | + + + + + | [facility] | [address] [place] [address] | [place] [address] | | | PATHOLOGY | [address] [...] DEPARTMENT OF | [address] | [place] [address] | | | PATHOLOGY | [address] | | | + + + + + | [facility] DE[facility] OF | [address] | [place] [address] | | | PATHOLOGY | [address] [...] | + + + + + | [facility] DEPARTMENT OF | [address] | [place] [address] | | | PATHOLOGY | [address] | | | + + + + + | [facility] DEPARTMENT OF | [address] | [place] [address] | | | PATHOLOGY | [address] [...] | [facility] | [address] | [place] [address] | | | PATHOLOGY | [address] | | | + + + + + | [facility] | [address] [place] [address] [address] | [place] [address] | | | PATHOLOGY | [address] | | | + + + + + [facility] PORTABLE TRANSCRANIAL DOPPLER COMPLETE (10/30/2007 1:44 AM PDT) + + + + + + | Component | Value | Ref Range | Performed | Pathologist | | | | | At | Signature | + + + + + + | [facility] LAB | Med Rec No:[id number] | | | | | PORTABLE | [...] AMAccession | | | | | | #[id number]:TRANSCRAN | | | | | | IAL [...] | | | | | UNSIGNED / O'[place] Rula | | | | + + [...] + + | [facility] | [address] [facility] | [place], [place] | | | THERAPY | [facility] | [address] | | + + + + + | [facility] | [address] [facility] | [place], [place] | | | THERAPY | [facility] | [address] | | + + + + + [...] | + + + + + | [facility] DEPARTMENT OF | [facility] | [place] [address] | | | PATHOLOGY | [address] | | | + + + + + | [facility] DEPARTMENT OF | [address] [facility] | [place] [address] | | | PATHOLOGY | [address] [...] | + + + + + | [facility] DEPARTMENT OF | [address] [facility] | [place] [address] | | | PATHOLOGY | [address] | | | + + + + + | [facility] DEPARTMENT OF | [address] | [place] [address] | | | PATHOLOGY | [address] [...] DEPARTMENT OF | [address] | [place] [address] | | | PATHOLOGY | [address] | | | + + + + + | [facility] DE[facility]MENT [facility] | [address] | [place] [address] | | | PATHOLOGY | [address] [...] OF | [address] | [place] [address] | | | PATHOLOGY | [address] | | | + + + + + | [facility] DE[facility]MENT OF | [address] | [place] [address] | | | PATHOLOGY | [address] [...] OF | [address] | [place] [address] | | | PATHOLOGY | [address] | | | + + + + + | [facility] DEPARTMENT OF | [address] | [place] [address] | | | PATHOLOGY | [address] [...] + + | [facility] | [address] [facility] | [place], [place] | | | THERAPY | [address] | [address] | | + + + + + | [facility] | [address] [facility] | [place], [place] | | | THERAPY | [address] | [address] | | + + + + + [...] + | [facility] | [address] [facility] | [place] [address] | | | PATHOLOGY | [address] | | | + + + + + | [facility] | [address] [place] [address] | [place] [address] | | | PATHOLOGY | [address] [...] [facility] | [address] | [place], [place] | | | THERAPY | [address] | [address] | | + + + + + | [facility] | [address] | [facility] [place] [place] | | | THERAPY | [address] | [address] | | + + + + + [facility]ASC LAB PORTABLE TRANSCRANIAL DOPPLER COMPLETE (10/29/2007 8:10 AM PDT) + + + + + + | Component | Value | Ref Range | Performed | Pathologist | | | | | At | Signature | + + + + + + | [facility] LAB | Med Rec No:[id number] | | | | | PORTABLE | [...] PMAccession | | | | | | #[id number]:TRANSCRAN | | | | | | IAL [...] | | | | | UNSIGNED / O'[place] Rula | | | | + + + + + + + + | Specimen | + + | | + + + +---------+ + + | Performing | Address | City/State/Zipcode | Phone Number | | Organization | | | | + +---------+ + + | [facility] DEPARTMENT OF | | | | | [...] | | + +---------+ + + | [facility] DEPARTMENT OF | | | | | [...] + + | [facility] | [address] [facility] | [place], [place] | | | THERAPY | [address] | [address] | | + + + + + | [facility] | [address] [facility] | [place], [place] | | | THERAPY | [address] | [address] | | + + + + + [...] + + | [facility] | [address] [facility] | [place] [address] | | | PATHOLOGY | [address] | | | + + + + + | [facility] DEPARTMENT OF | [address] [facility] | [place] [address] | | | PATHOLOGY | [address] [...] DEPARTMENT OF | [address] | [place] [address] | | | PATHOLOGY | [address] | | | + + + + + | [facility] DEPARTMENT | [address] | [place] [address] | | | PATHOLOGY | [address] | | | + + + + + MAGNESIUM, PLASMA (10/29/2007 12:01 AM PDT) + +-------+ + + + | Component | Value | Ref Range | Performed | Pathologist | | | | | At | Signature | + +-------+ + + + | MAGNESIUM,P | 1.9 | 1.8 - 2.5 mg/dL | [facility] | | | LASMA | | | [...] | + + + + + | [facility] DEPARTMENT OF | [address] | [place] [address] | | | PATHOLOGY | [address] | | | + + + + + | [facility] DEPARTMENT OF | [address] | [place] [address] | | | PATHOLOGY | [address] [...] + + | [facility] | [address] [facility] | [place] [address] | | | PATHOLOGY | [address] | | | + + + + + | [facility] | [address] [place] [address] | [place] [address] | | | PATHOLOGY | [address] [...] + | [facility] | [address] [facility] | [place] [address] | | | PATHOLOGY | [address] | | | + + + + + | [facility] | [address] [facility] | [place] [address] | | | PATHOLOGY | [address] [...] DEPARTMENT OF | [address] | [place] [address] | | | PATHOLOGY | [address] | | | + + + + + | [facility] DEPARTMENT | [address] | [place] [address] | | | PATHOLOGY | [address] [...] [facility] | [address] | [place], [place] | | | THERAPY | [address] | [address] | | + + + + + | [facility] | [address] | [place], [place] | | | THERAPY | [address] | [address] | | + + + + + [...] | [facility] | [address] | [place] [address] | | | PATHOLOGY | [address] | | | + + + + + | [facility] | [facility] [address] | [place] [address] | | | PATHOLOGY | [address] [...] | + + + + + | [facility] DEPARTMENT OF | [facility] | [place] [address] | | | PATHOLOGY | [address] | | | + + + + + | [facility] | [facility] | [place] [address] | | | PATHOLOGY | [address] [...] | + + + + + | [facility] DEPARTMENT OF | [address] [facility] | [place] [address] | | | PATHOLOGY | [address] | | | + + + + + | [facility] DEPARTMENT OF | [address] [facility] | [place] [address] | | | PATHOLOGY | [address] [...] | [facility] | [address] | [place] [address] | | | PATHOLOGY | [address] | | | + + + + + | [facility] | [address] [place] [address] [address] | [place] [address] | | | PATHOLOGY | [address] [...] [facility] | [address] | [place], [place] | | | THERAPY | [address] | [address] | | + + + + + | [facility] | [address] | [place], [place] | | | THERAPY | [facility] | [address] | | + + + + + [...] | + + + + + | [facility] DEPARTMENT OF | [address] | [place] [address] | | | PATHOLOGY | [address] | | | + + + + + | [facility] DEPARTMENT OF | [address] | [place] [address] | | | PATHOLOGY | [address] [...] [facility] | [address] | [place], [place] | | | THERAPY | [address] | [address] | | + + + + + | [facility] | [address] | [place], [place] | | | THERAPY | [address] | [address] | | + + + + + [...] + | [facility] | [address] [facility] | [place] [address] | | | PATHOLOGY | [address] | | | + + + + + | [facility] | [address] [place] [address] | [place] [address] | | | PATHOLOGY | [address] [...] + + | [facility] | [address] [facility] | [place] [address] | | | PATHOLOGY | [address] | | | + + + + + | [facility] | [address] [place] [address] | [place] [address] | | | PATHOLOGY | [address] [...] at | | | | | | [facility]. Culture: | | | | | | Final Report: No | | | | | | growth after 3 days. | | | | | | Final ReportComment: | | | | | | Test performed at [facility] | | | | | | [facility] | | | | | | Laboratory. | | | | + + + + + + + + | Specimen | + + | Cerebrospinal fluid | + + + + + + + | Performing | Address | City/State/Zipcode | Phone Number | | Organization | | | | + + + + + | [facility] | [address] | [place] [address] | | | LAB-MICRO | | | [...] | + + + + + | [facility] DEPARTMENT OF | [address] [facility] | [place] [address] | | | PATHOLOGY | [address] | | | + + + + + | [facility] DEPARTMENT OF | [address] [facility] | [place] [address] | | | PATHOLOGY | [address] [...] | + + + + + | [facility] DEPARTMENT OF | [address] | [place] [address] | | | PATHOLOGY | [address] | | | + + + + + | [facility] DEPARTMENT OF | [address] | [place] [address] | | | PATHOLOGY | [address] [...] | + + + + + | [facility] DEPARTMENT OF | [address] | [place] [address] | | | PATHOLOGY | [address] | | | + + + + + | [facility] | [address] | [place] [address] | | | PATHOLOGY | [address] | | | + + + + + [facility] LAB PORTABLE TRANSCRANIAL DOPPLER COMPLETE (10/28/2007 8:14 AM PDT) + + + + + + | Component | Value | Ref Range | Performed | Pathologist | | | | | At | Signature | + + + + + + | [facility] LAB | Med Rec No:[id number] | | | | | PORTABLE | [...] PMAccession | | | | | | #[id number]:TRANSCRAN | | | | | | IAL [...] | + + + + + | [facility] DEPARTMENT OF | [address] | [place] [address] | | | PATHOLOGY | [address] | | | + + + + + | [facility] | [address] | [place] [address] | | | PATHOLOGY | [address] [...] | + + + + + | [facility] DEPARTMENT OF | [address] | [place] [address] | | | PATHOLOGY | [address] | | | + + + + + | [facility] DE[facility] | [address] | [place] [address] | | | PATHOLOGY | [address] [...] DEPARTMENT OF | [address] | [place] [address] | | | PATHOLOGY | [address] | | | + + + + + | [facility] | [address] | [place] [address] | | | PATHOLOGY | [address] [...] [facility] | [address] | [place], [place] | | | THERAPY | [address] | [address] | | + + + + + | [facility] | [address] | [place], [place] | | | THERAPY | [facility] | [address] | | + + + + + [...] | | | | | | The seamless tube roller | | | | | | swellingoverlying [...] | | + +---------+ + + | [facility] | | | | | [...] + | [facility] | [address] [facility] | [place] [address] | | | PATHOLOGY | [address] | | | + + + + + | [facility] | [address] [facility] | [place] [address] | | | PATHOLOGY | [address] [...] | + + + + + | [facility] | [address] [facility] | [place] [address] | | | PATHOLOGY | [address] | | | + + + + + | [facility] | [address] [place] [address] | [place] [address] | | | PATHOLOGY | [address] [...] | + + + + + | [facility] | [address] [facility] | [place] [address] | | | PATHOLOGY | [address] | | | + + + + + | [facility] | [address] | [place] [address] | | | PATHOLOGY | [address] [...] DEPARTMENT OF | [address] | [place] [address] | | | PATHOLOGY | [address] | | | + + + + + | [facility] | [address] | [place] [address] | | | PATHOLOGY | [address] [...] + + | [facility] | [facility] | [place] [address] | | | PATHOLOGY | [address] | | | + + + + + | [place] [facility] | [address] | [place] [address] | | | PATHOLOGY | [address] [...] [facility] | [address] | [place], [place] | | | THERAPY | [facility] | [address] | | + + + + + | [facility] | [address] [facility] | [place], [place] | | | THERAPY | [facility] | [address] | | + + + + + [...] | | + +---------+ + + | [facility] DEPARTMENT OF | | | | | [...] [place], | | | | | | [employer] | | | | + + + [...] [facility] | [address] | [place], [place] | | | THERAPY | [address] | [address] | | + + + + + | [facility] | [address] | [place], [place] | | | THERAPY | [facility] | [address] | | + + + + + [...] [place], | | | | | | [employer] | | | | + + + [...] [facility] | [address] | [place], [place] | | | THERAPY | [address] | [address] | | + + + + + | [facility] | [address] | [place], [place] | | | THERAPY | [address] | [address] | | + + + + + [...] + | [facility] | [address] [facility] | [place] [address] | | | PATHOLOGY | [address] | | | + + + + + | [facility] | [address] [facility] | [place] [address] | | | PATHOLOGY | [address] [...] | | | | | performed at [facility] | | | | | | [facility] | | | | | | Laboratory. | | | | + + + + + + + + | Specimen | + + | Sputum - Sputum | + + + + + + + | Performing | Address | City/State/Zipcode | Phone Number | | Organization | | | | + + + + + | [facility] | [address] | [place] [address] | | | LAB-MICRO | | | [...] | | | | | | [facility] ([facility]) | | | | | | [facility] | | | | | | [facility] | | | | | | [address] [facility] | | | | | | [place], | | | | | | [place] [id number]: | | | | | | Test performed at [facility] | | | | | | [facility] | | | | | | Laboratory. | | | | + + + + + + + + | Specimen | + + | Urine - Benavides Cath | + + + + + + + | Performing | Address | City/State/Zipcode | Phone Number | | Organization | | | | + + + + + | [facility] | [address] | [place] [address] | | | LAB-MICRO | | | [...] | | | | | performed at [facility] | | | | | | [facility] | | | | | | Laboratory. | | | | + + + + + + + + | Specimen | + + | Blood | + + + + + + + | Performing | Address | City/State/Zipcode | Phone Number | | Organization | | | | + + + + + | [facility] | [address] | [place] [address] | | | LAB-MICRO | | | [...] | + + + + + | [facility] DEPARTMENT OF | [address] [facility] | [place] [address] | | | PATHOLOGY | [address] | | | + + + + + | [facility] DEPARTMENT OF | [address] [facility] | [place] [address] | | | PATHOLOGY | [address] [...] DEPARTMENT OF | [address] | [place] [address] | | | PATHOLOGY | [address] | | | + + + + + | [facility] DEPARTMENT OF | [address] | [place] [address] | | | PATHOLOGY | [address] [...] DEPARTMENT OF | [address] | [place] [address] | | | PATHOLOGY | [address] | | | + + + + + | [facility] DEPARTMENT | [address] [facility] | [place] [address] | | | PATHOLOGY | [address] [...] | + + + + + | [facility] DEPARTMENT OF | [address] [facility] | [place] [address] | | | PATHOLOGY | [address] | | | + + + + + | [facility] DEPARTMENT OF | [facility] | [place] [address] | | | PATHOLOGY | [address] [...] | | | DEPARTMENT | | | CASITLLO | | | OF | | | [...] + + + + + | [facility] | [address] | [place] [address] | | | PATHOLOGY | [address] | | | + + + + + | [facility] | [address] | [place] [address] | | | PATHOLOGY | [address] [...] | [facility] | [address] | [place] [address] | | | PATHOLOGY | [address] | | | + + + + + | [facility] | [address] | [place] [address] | | | PATHOLOGY | [address] [...] [place], | | | | | | [employer] | | | | + + + [...] + + | [facility] RESPIRATORY | [address] [facility] | [place], [place] | | | THERAPY | [address] | [address] | | + + + + + | [facility] RES[facility] | [address] [facility] | [place], [place] | | | THERAPY | [address] | [address] | | + + + + + [...] | + + + + + | [facility] DEPARTMENT | [address] [place] [address] | [place] [address] | | | PATHOLOGY | [address] | | | + + + + + | [facility] DEPARTMENT OF | [facility] | [place] [address] | | | PATHOLOGY | [address] [...] [place], | | | | | | [employer] | | | | + + + [...] [facility] RESP[facility]AT[facility] | [address] | [place], [place] | | | THERAPY | [address] | [address] | | + + + + + | [facility] RES[facility] | [address] | [place], [place] | | | THERAPY | [address] | [address] | | + + + + + [...] | + + + + + | [facility] DEPARTMENT OF | [facility] | [place] [address] | | | PATHOLOGY | [address] | | | + + + + + | [facility] DEPARTMENT OF | [facility] | [place] [address] | | | PATHOLOGY | [address] [...] + | [facility] DEPARTMENT OF | [address] [facility] | [place] [address] | | | PATHOLOGY | [address] | | | + + + + + | [facility] DEPARTMENT OF | [address] [facility] | [place] [address] | | | PATHOLOGY | [address] [...] DEPARTMENT OF | [address] | [place] [address] | | | PATHOLOGY | [address] | | | + + + + + | [facility] DEPARTMENT OF | [address] | [place] [address] | | | PATHOLOGY | [address] [...] DEPARTMENT OF | [address] | [place] [address] | | | PATHOLOGY | [address] | | | + + + + + | [facility] DEPARTMENT OF | [address] | [place] [address] | | | PATHOLOGY | [address] [...] + | [facility] | [address] [facility] | [place] [address] | | | PATHOLOGY | [address] | | | + + + + + | [facility] | [address] [facility] | [place] [address] | | | PATHOLOGY | [address] [...] at | | | | | | [facility]. Culture: | | | | | | Final Report: No | | | | | | growth after 3 days. | | | | | | Final ReportComment: | | | | | | Test performed at [facility] | | | | | | [facility] | | | | | | Laboratory. | | | | + + + + + + + + | Specimen | + + | Cerebrospinal fluid | + + + + + + + | Performing | Address | City/State/Zipcode | Phone Number | | Organization | | | | + + + + + | [facility] | [address] | [place] [address] | | | LAB-MICRO | | | [...] DEPARTMENT OF | [address] | [place] [address] | | | PATHOLOGY | [address] | | | + + + + + | [facility] DEPARTMENT | [address] | [place] [address] | | | PATHOLOGY | [address] | | | + + + + + PROTEIN, CSF (10/27/2007 8:22 AM PDT) + +---------+ + + + | Component | Value | Ref Range | Performed | Pathologist | | | | | At | Signature | + +---------+ + + + | TOTAL | 127 (H) | 15 - 45 mg/dL | [facility] | | | PROTEIN CSF | | [...] DEPARTMENT OF | [address] | [place] [address] | | | PATHOLOGY | [address] | | | + + + + + | [facility] DEPARTMENT OF | [address] | [place] [address] | | | PATHOLOGY | [address] [...] + + + | CSF RBC | [address] | /cu mm | [facility] | | [...] + | [facility] | [address] [facility] | [place] [address] | | | PATHOLOGY | [address] | | | + + + + + | [facility] | [facility] | [place] [address] | | | PATHOLOGY | [address] | | | + + + + + VASC LAB PORTABLE TRANSCRANIAL DOPPLER COMPLETE (10/27/2007 1:37 AM PDT) + + + + + + | Component | Value | Ref Range | Performed | Pathologist | | | | | At | Signature | + + + + + + | VASC LAB | Med Rec No:[id number] | | | | | PORTABLE | [...] AMAccession | | | | | | #[id number]:TRANSCRAN | | | | | | IAL [...] | | | | - UNSIGNED / Gaston | | | | | | Chana [...] + + | [facility] RES[facility] | [address] [facility] | [place], [place] | | | THERAPY | [address] | [address] | | + + + + + | [facility] RES[facility] | [address] [facility] | [place], [place] | | | THERAPY | [facility] | [address] | | + + + + + [...] | + + + + + | [facility] DEPARTMENT OF | [address] [facility] | [place] [address] | | | PATHOLOGY | [address] | | | + + + + + | [facility] DEPARTMENT OF | [address] [facility] | [place] [address] | | | PATHOLOGY | [address] [...] DEPARTMENT OF | [address] | [place] [address] | | | PATHOLOGY | [address] | | | + + + + + | [facility] DEPARTMENT OF | [address] | [place] [address] | | | PATHOLOGY | [address] [...] + | [facility] | [address] [facility] | [place] [address] | | | PATHOLOGY | [address] | | | + + + + + | [facility] | [address] [facility] | [place] [address] | | | PATHOLOGY | [address] [...] + | [facility] | [address] [facility] | [place] [address] | | | PATHOLOGY | [address] | | | + + + + + | [facility] | [address] [facility] | [place] [address] | | | PATHOLOGY | [address] [...] | + + + + + | [facility] DEPARTMENT | [address] [facility] | [place] [address] | | | PATHOLOGY | [address] | | | + + + + + | [facility] | [address] [facility] | [place] [address] | | | PATHOLOGY | [address] [...] + + | [facility] RESP[facility] | [address] [facility] [address] | [place], [place] | | | THERAPY | [address] | [address] | | + + + + + | [facility] RES[facility] | [address] [facility] | [place], [place] | | | THERAPY | [facility] | [address] | | + + + + + [...] DEPARTMENT OF | [address] | [place] [address] | | | PATHOLOGY | [address] | | | + + + + + | [facility] | [address] | [place] [address] | | | PATHOLOGY | [address] [...] | + + + + + | [facility] DEPARTMENT OF | [address] | [place] [address] | | | PATHOLOGY | [address] | | | + + + + + | [facility] DE[facility] | [facility] | [place] [address] | | | PATHOLOGY | [address] [...] | + + + + + | [facility] DEPARTMENT OF | [address] [facility] | [place] [address] | | | PATHOLOGY | [address] | | | + + + + + | [facility] DEPART[facility] OF | [address] [facility] | [place] [address] | | | PATHOLOGY | [address] [...] + + | [facility] RESP[facility] | [address] [facility] | [place], [place] | | | THERAPY | [address] | [address] | | + + + + + | [facility] RES[facility] | [address] [facility] [address] | [place], [place] | | | THERAPY | [address] | [address] | | + + + + + [...] DEPARTMENT OF | [address] | [place] [address] | | | PATHOLOGY | [address] | | | + + + + + | [facility] | [address] | [place] [address] | | | PATHOLOGY | [address] [...] [facility] | [address] | [place], [place] | | | THERAPY | [address] | [address] | | + + + + + | [facility] RES[facility] | [address] [facility] | [place], [place] | | | THERAPY | [address] | [address] | | + + + + + [...] DEPARTMENT OF | [address] | [place] [address] | | | PATHOLOGY | [address] | | | + + + + + | [facility] | [address] | [place] [address] | | | PATHOLOGY | [address] [...] DEPARTMENT OF | [address] | [place] [address] | | | PATHOLOGY | [address] | | | + + + + + | [facility] DEPARTMENT | [address] | [place] [address] | | | PATHOLOGY | [address] [...] | + + + + + | [facility] DEPARTMENT OF | [address] | [place] [address] | | | PATHOLOGY | [address] | | | + + + + + | [facility] DEPARTMENT OF | [address] | [place] [address] | | | PATHOLOGY | [address] [...] + | [facility] | [address] [facility] | [place] [address] | | | PATHOLOGY | [address] | | | + + + + + | [facility] | [address] [facility] | [place] [address] | | | PATHOLOGY | [address] [...] + + | [facility] RES[facility] | [address] [facility] | [place], [place] | | | THERAPY | [address] | [address] | | + + + + + | [facility] RES[facility] | [address] [facility] | [place], [place] | | | THERAPY | [address] | [address] | | + + + + + [...] | | + +---------+ + + | [facility] DEPARTMENT OF | | | | | [...] [facility] RES[facility] | [address] | [place], [place] | | | THERAPY | [address] | [address] | | + + + + + | [facility] RES[facility] | [address] | [place], [place] | | | THERAPY | [address] | [address] | | + + + + + VASC LAB PORTABLE TRANSCRANIAL DOPPLER COMPLETE (10/26/2007 2:02 AM PDT) + + + + + + | Component | Value | Ref Range | Performed | Pathologist | | | | | At | Signature | + + + + + + | VASC LAB | Med Rec No:[id number] | | | | | PORTABLE | [...] AMAccession | | | | | | #[id number]:TRANSCRAN | | | | | | IAL [...] artery | | | | | | rr120-173 cm/sec, in the | | | | [...] | | + +---------+ + + | [facility] DEPARTMENT OF | | | | | [...] + | [facility] | [address] [facility] | [place] [address] | | | PATHOLOGY | [address] | | | + + + + + | [facility] | [address] [place] [address] | [place] [address] | | | PATHOLOGY | [address] [...] | + + + + + | [facility] DEPARTMENT OF | [address] | [place] [address] | | | PATHOLOGY | [address] | | | + + + + + | [facility] DEPARTMENT OF | [address] | [place] [address] | | | PATHOLOGY | [address] [...] DEPARTMENT OF | [address] | [place] [address] | | | PATHOLOGY | [address] | | | + + + + + | [facility] | [address] | [place] [address] | | | PATHOLOGY | [address] [...] | | THERAPY | [address] | [address] | | + + + + + | [facility] RES[facility] | [address] | [place], [place] | | | THERAPY | [address] | [address] | | + + + + + [...] | + + + + + | [facility] DEPARTMENT OF | [facility] | [place] [address] | | | PATHOLOGY | [address] | | | + + + + + | [facility] DEPART[facility] OF | [facility] | [place] [address] | | | PATHOLOGY | [address] [...] [facility] | [address] | [place], [place] | | | THERAPY | [address] | [address] | | + + + + + | [facility] RES[facility] | [address] | [place], [place] | | | THERAPY | [facility] | [address] | | + + + + + [...] + | [facility] | [address] [facility] | [place] [address] | | | PATHOLOGY | [address] | | | + + + + + | [facility] | [address] [facility] | [place] [address] | | | PATHOLOGY | [address] [...] | + + + + + | [facility] DEPARTMENT OF | [address] | [place] [address] | | | PATHOLOGY | [address] | | | + + + + + | [facility] DEPARTMENT OF | [address] | [place] [address] | | | PATHOLOGY | [address] [...] + | [facility] | [address] [facility] | [place] [address] | | | PATHOLOGY | [address] | | | + + + + + | [facility] | [address] [place] [address] | [place] [address] | | | PATHOLOGY | [address] [...] | + + + + + | [facility] DEPARTMENT | [facility] | [place] [address] | | | PATHOLOGY | [address] | | | + + + + + | [facility] DEPARTMENT OF | [address] [facility] | [place] [address] | | | PATHOLOGY | [address] [...] [facility] | [address] | [place], [place] | | | THERAPY | [address] | [address] | | + + + + + | [facility] RES[facility] | [address] | [place], [place] | | | THERAPY | [address] [facility] | [address] | | + + + + + [...] + + | [facility] | [facility] | [place] [address] | | | PATHOLOGY | [address] | | | + + + + + | [facility] | [address] [place] [address] | [place] [address] | | | PATHOLOGY | [address] [...] | + + + + + | [facility] DEPARTMENT OF | [address] | [place] [address] | | | PATHOLOGY | [address] | | | + + + + + | [facility] DEPARTMENT OF | [facility] | [place] [address] | | | PATHOLOGY | [address] [...] | + + + + + | [facility] DEPARTMENT OF | [address] [facility] | [place] [address] | | | PATHOLOGY | [address] | | | + + + + + | [facility] DEPARTMENT OF | [address] [facility] | [place] [address] | | | PATHOLOGY | [address] [...] + + | [facility] RES[facility] | [address] [facility] | [place], [place] | | | THERAPY | [address] | [address] | | + + + + + | [facility] | [address] [facility] | [place], [place] | | | THERAPY | [address] | [address] | | + + + + + [...] | [facility] | [address] | [place] [address] | | | PATHOLOGY | [address] | | | + + + + + | [facility] | [facility] [address] | [place] [address] | | | PATHOLOGY | [address] [...] | + + + + + | [facility] DEPARTMENT OF | [address] | [place] [address] | | | PATHOLOGY | [address] | | | + + + + + | [facility] DEPARTMENT OF | [address] | [place] [address] | | | PATHOLOGY | [address] [...] | + + + + + | [facility] DEPARTMENT OF | [address] | [place] [address] | | | PATHOLOGY | [address] | | | + + + + + | [facility] DE[facility] | [address] | [place] [address] | | | PATHOLOGY | [address] [...] DEPARTMENT OF | [address] | [place] [address] | | | PATHOLOGY | [address] | | | + + + + + | [facility] DEPARTMENT | [address] | [place] [address] | | | PATHOLOGY | [address] [...] DEPARTMENT OF | [address] | [place] [address] | | | PATHOLOGY | [address] | | | + + + + + | [facility] DEPARTMENT | [address] | [place] [address] | | | PATHOLOGY | [address] [...] [facility] | [address] | [place], [place] | | | THERAPY | [address] | [address] | | + + + + + | [facility] | [address] [facility] | [place], [place] | | | THERAPY | [address] | [address] | | + + + + + [...] + + | [facility] RES[facility] | [address] [facility] | [place], [place] | | | THERAPY | [address] | [address] | | + + + + + | [facility] RES[facility] | [address] [facility] | [place], [place] | | | THERAPY | [address] | [address] | | + + + + + VASC LAB PORTABLE TRANSCRANIAL DOPPLER COMPLETE (10/25/2007 2:03 AM PDT) + + + + + + | Component | Value | Ref Range | Performed | Pathologist | | | | | At | Signature | + + + + + + | VASC LAB | [facility] Rec No:[id number] | | | | | PORTABLE | [...] AMAccession | | | | | | #[id number]:TRANSCRAN | | | | | | IAL [...] | | | | | UNSIGNED / [place] Rula | | | | + + [...] | + + + + + | [facility] DEPARTMENT OF | [address] | [place] [address] | | | PATHOLOGY | [address] | | | + + + + + | [facility] DEPARTMENT OF | [address] [facility] | [place] [address] | | | PATHOLOGY | [address] | | | + + + + + MAGNESIUM, PLASMA (10/25/2007 2:00 AM PDT) + +---------+ + + + | Component | Value | Ref Range | Performed | Pathologist | | | | | At | Signature | + +---------+ + + + | MAGNESIUM,P | 1.6 (L) | 1.8 - 2.5 mg/dL | [facility] | | | LASMA | | | [...] + | [facility] | [address] [facility] | [place] [address] | | | PATHOLOGY | [address] | | | + + + + + | [facility] | [address] [facility] | [place] [address] | | | PATHOLOGY | [address] [...] | + + + + + | [facility] DEPARTMENT OF | [facility] | [place] [address] | | | PATHOLOGY | [address] | | | + + + + + | [facility] DEPARTMENT OF | [address] [facility] | [place] [address] | | | PATHOLOGY | [address] [...] | + + + + + | [facility] DEPARTMENT | [address] [facility] | [place] [address] | | | PATHOLOGY | [address] | | | + + + + + | [facility] | [address] [facility] | [place] [address] | | | PATHOLOGY | [address] [...] + + | [facility] RES[facility] | [address] [facility] | [place], [place] | | | THERAPY | [address] | [address] | | + + + + + | [facility] RES[facility] | [address] | [place], [place] | | | THERAPY | [facility] | [address] | | + + + + + [...] + + | [facility] RES[facility] | [address] [facility] | [place], [place] | | | THERAPY | [address] | [address] | | + + + + + | [facility] RES[facility] | [address] [facility] | [place], [place] | | | THERAPY | [address] | [address] | | + + + + + [...] DEPARTMENT OF | [address] | [place] [address] | | | PATHOLOGY | [address] | | | + + + + + | [facility] DEPARTMENT OF | [address] | [place] [address] | | | PATHOLOGY | [address] [...] DEPARTMENT OF | [address] | [place] [address] | | | PATHOLOGY | [address] | | | + + + + + | [facility] DEPARTMENT OF | [address] | [place] [address] | | | PATHOLOGY | [address] [...] DEPARTMENT OF | [address] | [place] [address] | | | PATHOLOGY | [address] | | | + + + + + | [facility] DEPARTMENT OF | [address] | [place] [address] | | | PATHOLOGY | [address] [...] + | [facility] | [address] [facility] | [place] [address] | | | PATHOLOGY | [address] | | | + + + + + | [facility] | [address] [facility] | [place] [address] | | | PATHOLOGY | [address] [...] + + | [facility] RES[facility] | [address] [facility] | [place], [place] | | | THERAPY | [address] | [address] | | + + + + + | [facility] | [address] [facility] | [place], [place] | | | THERAPY | [address] | [address] | | + + + + + [...] | + + + + + | [facility] | [address] | [place] [address] | | | PATHOLOGY | [address] | | | + + + + + | [facility] | [address] | [place] [address] | | | PATHOLOGY | [address] [...] | + + + + + | [facility] | [address] [facility] | [place] [address] | | | PATHOLOGY | [address] | | | + + + + + | [facility] | [address] [facility] | [place] [address] | | | PATHOLOGY | [address] [...] at | | | | | | [facility]. Culture: | | | | | | Final Report: No | | | | | | growth after 3 days. | | | | | | Final ReportComment: | | | | | | Test performed at [facility] | | | | | | [facility] | | | | | | Laboratory. | | | | + + + + + + + + | Specimen | + + | Cerebrospinal fluid | + + + + + + + | Performing | Address | City/State/Zipcode | Phone Number | | Organization | | | | + + + + + | [facility] | [address] | [place] [address] | | | LAB-MICRO | | | [...] + | [facility] | [address] [facility] | [place] [address] | | | PATHOLOGY | [address] | | | + + + + + | [facility] | [address] [facility] | [place] [address] | | | PATHOLOGY | [address] [...] + | [facility] | [address] [facility] | [place] [address] | | | PATHOLOGY | [address] | | | + + + + + | [facility] | [address] [facility] | [place] [address] | | | PATHOLOGY | [address] [...] + + + | CSF RBC | [address] | /cu mm | [facility] | | [...] DEPARTMENT OF | [address] | [place] [address] | | | PATHOLOGY | [address] | | | + + + + + | [facility] | [address] | [place] [address] | | | PATHOLOGY | [address] [...] | + + + + + | [facility] | [address] | [place] [address] | | | PATHOLOGY | [address] | | | + + + + + | [facility] | [address] | [place] [address] | | | PATHOLOGY | [address] [...] [facility] | [address] | [place], [place] | | | THERAPY | [facility] | [address] | | + + + + + | [facility] | [address] | [place], [place] | | | THERAPY | [facility] | [address] | | + + + + + [...] DEPARTMENT OF | [address] | [place] [address] | | | PATHOLOGY | [address] | | | + + + + + | [facility] | [address] | [place], [place] [address] | | | PATHOLOGY | [address] [...] + | [facility] | [address] [facility] | [place] [address] | | | PATHOLOGY | [address] | | | + + + + + | [facility] | [address] [facility] | [place] [address] | | | PATHOLOGY | [address] [...] + | [facility] | [address] [facility] | [place] [address] | | | PATHOLOGY | [address] | | | + + + + + | [facility] | [address] [facility] | [place] [address] | | | PATHOLOGY | [address] [...] | [facility] | [address] | [place] [address] | | | PATHOLOGY | [address] | | | + + + + + | [facility] | [address] | [place] [address] | | | PATHOLOGY | [address] [...] | + + + + + | [facility] | [address] | [place] [address] | | | PATHOLOGY | [address] | | | + + + + + | [facility] | [address] | [place] [address] | | | PATHOLOGY | [address] [...] | | | | | | Ipratropium Amazonia .5 | | | | | | [...] [facility] | [address] | [place], [place] | | | THERAPY | [address] | [address] | | + + + + + | [facility] | [address] | [place], [place] | | | THERAPY | [address] | [address] | | + + + + + [...] + + + + | PRODUCT | [id number] | | [facility] | | | UNIT [...] + + | [facility] | [address] [place] [address] | [place] [address] | | | PATHOLOGY | [address] | | | + + + + + | [facility] | [address] [place] [address] | [place] [address] | | | PATHOLOGY | [address] [...] + + | [facility] | [address] [facility] | [place] [address] | | | PATHOLOGY | [address] | | | + + + + + | [facility] | [address] [place] [address] | [place] [address] | | | PATHOLOGY | [address] [...] + + + + | PRODUCT | [id number] | | [facility] | | | UNIT [...] DEPARTMENT OF | [address] | [place] [address] | | | PATHOLOGY | [address] | | | + + + + + | [facility] DEPARTMENT | [address] | [place] [address] | | | PATHOLOGY | [address] [...] | + + + + + | [facility] DEPARTMENT OF | [address] | [place] [address] | | | PATHOLOGY | [address] | | | + + + + + | [facility] | [address] | [place] [address] | | | PATHOLOGY | [address] [...] + | [facility] DE[facility] | [address] [facility] | [place] [address] | | | PATHOLOGY | [address] | | | + + + + + | [facility] | [address] [facility] | [place] [address] | | | PATHOLOGY | [address] [...] | [facility] | [address] | [place] [address] | | | PATHOLOGY | [address] | | | + + + + + | [facility] | [address] | [place] [address] | | | PATHOLOGY | [address] | | | + + + + + [facility]ASC LAB PORTABLE TRANSCRANIAL DOPPLER COMPLETE (10/24/2007 5:05 AM PDT) + + + + + + | Component | Value | Ref Range | Performed | Pathologist | | | | | At | Signature | + + + + + + | VASC LAB | Med Rec No:[id number] | | | | | PORTABLE | [...] AMAccession | | | | | | #[id number]:TRANSCRAN | | | | | | IAL [...] | | | | | UNSIGNED / [place] Rula | | | | + + [...] + | [facility] | [address] [facility] | [place] [address] | | | PATHOLOGY | [address] | | | + + + + + | [facility]PART[facility] | [address] [facility] | [place] [address] | | | PATHOLOGY | [address] [...] | + + + + + | [facility] DEPARTMENT OF | [address] | [place] [address] | | | PATHOLOGY | [address] | | | + + + + + | [facility] | [address] | [place] [address] | | | PATHOLOGY | [address] [...] + | [facility] | [address] [facility] | [place] [address] | | | PATHOLOGY | [address] | | | + + + + + | [facility] | [address] [facility] | [place] [address] | | | PATHOLOGY | [address] [...] DEPARTMENT OF | [address] | [place] [address] | | | PATHOLOGY | [address] | | | + + + + + | [facility] | [address] [facility] | [place] [address] | | | PATHOLOGY | [address] [...] + | [facility] | [address] [facility] | [place] [address] | | | PATHOLOGY | [address] | | | + + + + + | [facility] | [address] [facility] | [place] [address] | | | PATHOLOGY | [address] | | | + + + + + MAGNESIUM, PLASMA (10/24/2007 12:01 AM PDT) + +-------+ + + + | Component | Value | Ref Range | Performed | Pathologist | | | | | At | Signature | + +-------+ + + + | MAGNESIUM,P | 2.0 | 1.8 - 2.5 mg/dL | [facility] | | | LASMA | | | [...] + | [facility] | [address] [facility] | [place] [address] | | | PATHOLOGY | [address] | | | + + + + + | [facility] | [address] [facility] | [place] [address] | | | PATHOLOGY | [address] [...] | + + + + + | [facility] DEPARTMENT OF | [address] [facility] | [place] [address] | | | PATHOLOGY | [address] | | | + + + + + | [facility] | [address] [facility] | [place] [address] | | | PATHOLOGY | [address] [...] + + + + + | [facility] | [address] | [place] [address] | | | PATHOLOGY | [address] | | | + + + + + | [facility] | [address] | [place] [address] | | | PATHOLOGY | [address] [...] | + + + + + | [facility] DEPARTMENT OF | [address] [facility] | [place] [address] | | | PATHOLOGY | [address] | | | + + + + + | [facility] DEPARTMENT OF | [address] [facility] | [place] [address] | | | PATHOLOGY | [address] [...] | + + + + + | [facility] DEPARTMENT OF | [address] [facility] | [place] [address] | | | PATHOLOGY | [address] | | | + + + + + | [facility] | [address] [facility] | [place] [address] | | | PATHOLOGY | [address] [...] | + + + + + | [facility] DEPARTMENT OF | [address] | [place] [address] | | | PATHOLOGY | [address] | | | + + + + + | [facility] | [address] | [place] [address] | | | PATHOLOGY | [address] [...] + + + + + | [facility] | [facility] | [place] [address] | | | PATHOLOGY | [address] | | | + + + + + | [facility] DEPARTMENT OF | [address] | [place] [address] | | | PATHOLOGY | [address] [...] | + + + + + | [facility] DEPARTMENT OF | [address] | [place] [address] | | | PATHOLOGY | [address] | | | + + + + + | [facility] | [address] | [place] [address] | | | PATHOLOGY | [address] [...] DEPARTMENT OF | [address] | [place] [address] | | | PATHOLOGY | [address] | | | + + + + + | [facility] DE[facility] | [address] | [place] [address] | | | PATHOLOGY | [address] [...] + | [facility] | [address] | [place] [address] | | | PATHOLOGY | [address] | | | + + + + + | [facility] | [address] | [place] [address] | | | PATHOLOGY | [address] [...] | + + + + + | [facility] | [address] | [place] [address] | | | LAB-MICRO | | | [...] + + | [facility] | [address] [place] [address] [address] | [place] [address] | | | PATHOLOGY | [address] | | | + + + + + | [facility] | [address] [place] [address] [address] | [place] [address] | | | PATHOLOGY | [address] [...] | | + +---------+ + + | [facility] DEPARTMENT OF | | | | | [...] | | + +---------+ + + | [facility] DEPARTMENT OF | | | | | [...] + | VASC LAB | Med Rec No:[id number] | | | | | PORTABLE | [...] PMAccession | | | | | | #[id number]:TRANSCRAN | | | | | | IAL [...] | + + + + + | [facility] DEPARTMENT OF | [facility] | [place] [address] | | | PATHOLOGY | [address] | | | + + + + + | [facility] | [facility] | [place] [address] | | | PATHOLOGY | [address] [...] DEPARTMENT OF | [address] | [place] [address] | | | PATHOLOGY | [address] | | | + + + + + | [facility] DEPARTMENT OF | [address] | [place] [address] | | | PATHOLOGY | [address] [...] DEPARTMENT OF | [address] | [place] [address] | | | PATHOLOGY | [address] | | | + + + + + | [facility] | [address] | [place] [address] | | | PATHOLOGY | [address] [...] + + | [facility] | [facility] | [place] [address] | | | PATHOLOGY | [address] | | | + + + + + | [facility] | [address] [place] [address] | [place] [address] | | | PATHOLOGY | [address] [...] | + + + + + | [facility] DEPARTMENT OF | [address] | [place] [address] | | | PATHOLOGY | [address] | | | + + + + + | [facility] | [address] | [place] [address] | | | PATHOLOGY | [address] [...] DEPARTMENT OF | [address] | [place] [address] | | | PATHOLOGY | [address] | | | + + + + + | [facility] DEPARTMENT OF | [address] | [place] [address] | | | PATHOLOGY | [address] [...] | + + + + + | [facility] DEPARTMENT OF | [address] | [place] [address] | | | PATHOLOGY | [address] | | | + + + + + | [facility] | [address] | [place] [address] | | | PATHOLOGY | [address] [...] | + + + + + | [facility] DEPARTMENT OF | [address] | [place] [address] | | | PATHOLOGY | [address] | | | + + + + + | [facility] DE[facility] | [address] | [place] [address] | | | PATHOLOGY | [address] [...] | + + + + + | [facility] DEPARTMENT OF | [address] | [place] [address] | | | PATHOLOGY | [address] | | | + + + + + | [facility] | [address] | [place] [address] | | | PATHOLOGY | [...] DEPARTMENT OF | [address] | [place] [address] | | | PATHOLOGY | [address] | | | + + + + + | [facility] | [address] | [place] [address] | | | PATHOLOGY | [address] [...] + | [facility] | [address] [facility] | [place] [address] | | | PATHOLOGY | [address] | | | + + + + + | [facility] | [address] [facility] | [place] [address] | | | PATHOLOGY | [address] [...] | + + + + + | [facility] DEPARTMENT OF | [address] [facility] | [place] [address] | | | PATHOLOGY | [address] | | | + + + + + | [facility] | [address] [facility] | [place] [address] | | | PATHOLOGY | [address] [...] | [facility] | [address] | [place] [address] | | | PATHOLOGY | [address] | | | + + + + + | [facility] | [address] | [place] [address] | | | PATHOLOGY | [address] [...] | | + +---------+ + + | [facility] DEPARTMENT OF | | | | | [...] | + + + + + | [facility] DEPARTMENT OF | [address] | [place] [address] | | | PATHOLOGY | [address] | | | + + + + + | [facility] | [facility] | [place] [address] | | | PATHOLOGY | [address] [...] | + + + + + | [facility] DEPARTMENT OF | [address] [facility] [address] | [place] [address] | | | PATHOLOGY | [address] | | | + + + + + | [facility] DEPARTMENT OF | [address] | [place] [address] | | | PATHOLOGY | [address] [...] DEPARTMENT OF | [address] | [place] [address] | | | PATHOLOGY | [address] | | | + + + + + | [facility] DE[facility]MENT OF | [address] | [place] [address] | | | PATHOLOGY | [address] [...] + + | [facility] | [facility] | [place] [address] | | | PATHOLOGY | [address] | | | + + + + + | [facility] DEPARTMENT OF | [address] [facility] | [place] [address] | | | PATHOLOGY | [address] | | | + + + + + VASC LAB PORTABLE TRANSCRANIAL DOPPLER COMPLETE (10/22/2007 8:17 AM PDT) + + + + + + | Component | Value | Ref Range | Performed | Pathologist | | | | | At | Signature | + + + + + + | VASC LAB | Med Rec No:[id number] | | | | | PORTABLE | [...] PMAccession | | | | | | #[id number]:TRANSCRAN | | | | | | IAL [...] | | | | | UNSIGNED / [place] Rula | | | | + + [...] | [facility] | [address] | [place] [address] | | | PATHOLOGY | [address] | | | + + + + + | [facility] | [address] | [place] [address] | | | PATHOLOGY | [address] [...] + | [facility] | [address] [facility] | [place] [address] | | | PATHOLOGY | [address] | | | + + + + + | [facility] | [facility] | [place] [address] | | | PATHOLOGY | [address] [...] | + + + + + | [facility] DEPARTMENT OF | [address] | [place] [address] | | | PATHOLOGY | [address] | | | + + + + + | [facility] DEPARTMENT OF | [address] | [place] [address] | | | PATHOLOGY | [address] [...] at | | | | | | [facility]. Culture: | | | | | | Final Report: No | | | | | | growth after 3 days. | | | | | | Final ReportComment: | | | | | | Test performed at [facility] | | | | | | [facility] | | | | | | Laboratory. | | | | + + + + + + + + | Specimen | + + | Cerebrospinal fluid | + + + + + + + | Performing | Address | City/State/Zipcode | Phone Number | | Organization | | | | + + + + + | [facility] | [address] | [place] [address] | | | LAB-MICRO | | | [...] | + + + + + | [facility] DEPARTMENT OF | [facility] | [place] [address] | | | PATHOLOGY | [address] | | | + + + + + | [facility] | [address] [facility] | [place] [address] | | | PATHOLOGY | [address] [...] + | [facility] | [address] [facility] | [place] [address] | | | PATHOLOGY | [address] | | | + + + + + | [facility] | [address] [place] [address] | [place] [address] | | | PATHOLOGY | [address] [...] + + + | CSF RBC | [address] | /cu mm | [facility] | | [...] DEPARTMENT OF | [address] | [place] [address] | | | PATHOLOGY | [address] | | | + + + + + | [facility] | [address] | [place] [address] | | | PATHOLOGY | [address] [...] | | | | | performed at [facility] | | | | | | [facility] | | | | | | Laboratory. | | | | + + + + + + + + | Specimen | + + | Blood - Central line | + + + + + + + | Performing | Address | City/State/Zipcode | Phone Number | | Organization | | | | + + + + + | [facility] | [address] | [place] [address] | | | LAB-MICRO | | | [...] DEPARTMENT OF | [address] | [place] [address] | | | PATHOLOGY | [address] | | | + + + + + | [facility] DEPARTMENT | [address] | [place] [address] | | | PATHOLOGY | [address] | | | + + + + + MAGNESIUM, PLASMA (10/22/2007 2:45 AM PDT) + +-------+ + + + | Component | Value | Ref Range | Performed | Pathologist | | | | | At | Signature | + +-------+ + + + | MAGNESIUM,P | 2.2 | 1.8 - 2.5 mg/dL | [facility] | | | LASMA | | | [...] + | [facility] | [address] [facility] | [place] [address] | | | PATHOLOGY | [address] | | | + + + + + | [facility] | [address] [facility] | [place] [address] | | | PATHOLOGY | [address] [...] | + + + + + | [facility] DEPARTMENT | [address] [facility] | [place] [address] | | | PATHOLOGY | [address] | | | + + + + + | [facility] | [facility] | [place] [address] | | | PATHOLOGY | [address] [...] + + | [facility] | [address] [facility] | [place], [place] | | | THERAPY | [address] | [address] | | + + + + + | [facility] | [address] [facility] | [place], [place] | | | THERAPY | [facility] | [address] | | + + + + + [...] + | [facility] | [address] [facility] | [place] [address] | | | PATHOLOGY | [address] | | | + + + + + | [facility] | [address] [facility] | [place] [address] | | | PATHOLOGY | [address] [...] | [address] | [place], [place] [address] | | | PATHOLOGY | [address] | | | + + + + + | [facility] DE[facility]MENT [facility] | [address] | [place] [address] | | | PATHOLOGY | [address] [...] | + + + + + | [facility] DEPARTMENT OF | [facility] | [place] [address] | | | PATHOLOGY | [address] | | | + + + + + | [facility] | [facility] | [place] [address] | | | PATHOLOGY | [address] [...] + | [facility] | [address] [facility] | [place] [address] | | | PATHOLOGY | [address] | | | + + + + + | [facility] | [address] [facility] | [place] [address] | | | PATHOLOGY | [address] [...] | | | | | | Ipratropium Amazonia .5 | | | | | | [...] + + | [facility] | [address] [facility] | [place], [place] | | | THERAPY | [address] | [address] | | + + + + + | [facility] | [address] [facility] | [place], [place] | | | THERAPY | [address] | [address] | | + + + + + [...] | | + +---------+ + + | [facility] DEPARTMENT OF | | | | | [...] DEPARTMENT OF | [address] | [place] [address] | | | PATHOLOGY | [address] | | | + + + + + | [facility] DE[facility]MENT OF | [address] | [place] [address] | | | PATHOLOGY | [address] [...] | + + + + + | [facility] DEPARTMENT OF | [address] | [place] [address] | | | PATHOLOGY | [address] | | | + + + + + | [facility] DEPARTMENT | [address] | [place] [address] | | | PATHOLOGY | [address] [...] | + + + + + | [facility] DEPARTMENT | [address] [facility] | [place] [address] | | | PATHOLOGY | [address] | | | + + + + + | [facility] DEPARTMENT | [address] [facility] | [place] [address] | | | PATHOLOGY | [address] [...] | | | | | | Ipratropium Amazonia .5 | | | | | | [...] + + | [facility] | [address] [facility] | [place], [place] | | | THERAPY | [facility] | [address] | | + + + + + | [facility] | [address] [facility] | [place], [place] | | | THERAPY | [facility] | [address] | | + + + + + [...] | [facility] | [address] | [place] [address] | | | PATHOLOGY | [address] | | | + + + + + | [facility] | [address] | [place] [address] | | | PATHOLOGY | [address] [...] + | [facility] DE[facility] | [address] [facility] | [place] [address] | | | PATHOLOGY | [address] | | | + + + + + | [facility] DE[facility]MENT [facility] | [address] [facility] | [place] [address] | | | PATHOLOGY | [address] [...] + | [facility] | [address] [facility] | [place] [address] | | | PATHOLOGY | [address] | | | + + + + + | [facility] | [address] [facility] | [place] [address] | | | PATHOLOGY | [address] [...] + + + + + | [facility] | [address] | [place] [address] | | | PATHOLOGY | [address] | | | + + + + + | [facility] | [address] | [place] [address] | | | PATHOLOGY | [address] [...] | + + + + + | [facility] DEPARTMENT OF | [address] | [place] [address] | | | PATHOLOGY | [address] | | | + + + + + | [facility] DEPARTMENT OF | [address] | [place] [address] | | | PATHOLOGY | [address] [...] | | | | | | Ipratropium Amazonia .5 | | | | | | [...] [facility] | [address] | [place], [place] | | | THERAPY | [address] | [address] | | + + + + + | [facility] | [address] | [place], [place] | | | THERAPY | [facility] | [address] | | + + + + + [...] [facility] | [address] | [place], [place] | | | THERAPY | [address] | [address] | | + + + + + | [facility] | [address] | [place], [place] | | | THERAPY | [address] | [address] | | + + + + + [...] + | [facility] | [address] [facility] | [place] [address] | | | PATHOLOGY | [address] | | | + + + + + | [facility] | [address] [facility] | [place] [address] | | | PATHOLOGY | [address] [...] | | | | | | Ipratropium Amazonia .5 | | | | | | [...] [facility] | [address] | [place], [place] | | | THERAPY | [address] | [address] | | + + + + + | [facility] | [address] | [place], [place] | | | THERAPY | [address] | [address] | | + + + + + [facility]ASC LAB VENOUS DUPLEX LOWER EXTREMITY BILAT COMP (10/21/2007 8:00 AM PDT) + + + + + + | Component | Value | Ref Range | Performed | Pathologist | | | | | At | Signature | + + + + + + | [facility]ASC LAB | Med Rec No:[id number] | | | | | VENOUS | [...] PMAccession | | | | | | #[id number]:LOWER | | | | | | EXTREMITY [...] | | + +---------+ + + | [facility] DEPARTMENT OF | | | | | [...] + | VASC LAB | Med Rec No:[id number] | | | | | PORTABLE | Name: | | | | | TRANSCRANIA | GLOIRA ADHIKARI | | | | | L [...] PMAccession | | | | | | #[id number]:TRANSCRAN | | | | | | IAL [...] | | + +---------+ + + | [facility] | | | | | [...] [facility] | [address] | [place], [place] | | | THERAPY | [address] | [address] | | + + + + + | [facility] | [address] [facility] | [place], [place] | | | THERAPY | [address] [facility] | [address] | | + + + + + [...] + + | [facility] | [address] [facility] | [place], [place] | | | THERAPY | [address] | [address] | | + + + + + | [facility] | [address] [facility] | [place], [place] | | | THERAPY | [address] | [address] | | + + + + + [...] | + + + + + | [facility] | [address] | [place] [address] | | | PATHOLOGY | [address] | | | + + + + + | [facility] | [address] | [place] [address] | | | PATHOLOGY | [address] [...] | + + + + + | [facility] | [address] | [place] [address] | | | PATHOLOGY | [address] | | | + + + + + | [facility] | [address] | [place] [address] | | | PATHOLOGY | [address] [...] | + + + + + | [facility] | [address] | [place] [address] | | | PATHOLOGY | [address] | | | + + + + + | [facility] | [address] [facility] | [place] [address] | | | PATHOLOGY | [address] [...] + | [facility] | [address] [facility] | [place] [address] | | | PATHOLOGY | [address] | | | + + + + + | [facility] | [facility] | [place] [address] | | | PATHOLOGY | [address] [...] | + + + + + | [facility] | [address] | [place] [address] | | | PATHOLOGY | [address] | | | + + + + + | [facility] | [address] | [place] [address] | | | PATHOLOGY | [address] [...] | + + + + + | [facility] | [address] | [place] [address] | | | PATHOLOGY | [address] | | | + + + + + | [facility] | [address] | [place] [address] | | | PATHOLOGY | [address] [...] | | | | | | Ipratropium Amazonia .5 | | | | | | [...] + + | [facility] | [address] [facility] | [place], [place] | | | THERAPY | [facility] | [address] | | + + + + + | [facility] | [address] [facility] | [place], [place] | | | THERAPY | [facility] | [address] | | + + + + + [...] | | + +---------+ + + | [facility] | | | | | [...] | + + + + + | [facility] | [address] [facility] | [place] [address] | | | PATHOLOGY | [address] | | | + + + + + | [facility] | [address] [facility] | [place] [address] | | | PATHOLOGY | [address] [...] DEPARTMENT OF | [address] | [place] [address] | | | PATHOLOGY | [address] | | | + + + + + | [facility] | [address] | [place] [address] | | | PATHOLOGY | [address] [...] + | [facility] | [address] [facility] | [place] [address] | | | PATHOLOGY | [address] | | | + + + + + | [facility] | [address] [facility] | [place] [address] | | | PATHOLOGY | [address] [...] | [facility] | [address] | [place] [address] | | | PATHOLOGY | [address] | | | + + + + + | [facility] | [address] | [place] [address] | | | PATHOLOGY | [address] [...] | + + + + + | [facility] DEPARTMENT OF | [address] | [place] [address] | | | PATHOLOGY | [address] | | | + + + + + | [facility] | [address] | [place] [address] | | | PATHOLOGY | [address] [...] DEPARTMENT OF | [address] | [place] [address] | | | PATHOLOGY | [address] | | | + + + + + | [facility] DEPARTMENT OF | [address] | [place] [address] | | | PATHOLOGY | [address] [...] | [facility] | [address] | [place] [address] | | | PATHOLOGY | [address] | | | + + + + + | [facility] | [address] [place] [address] [address] | [place] [address] | | | PATHOLOGY | [address] [...] + | [facility] | [address] [facility] | [place] [address] | | | PATHOLOGY | [address] | | | + + + + + | [facility] | [address] [place] [address] | [place] [address] | | | PATHOLOGY | [address] [...] + + | [facility] | [address] [facility] | [place] [address] | | | PATHOLOGY | [address] | | | + + + + + | [facility] | [address] [facility] | [place] [address] | | | PATHOLOGY | [address] [...] | + + + + + | [facility] DEPARTMENT OF | [address] | [place] [address] | | | PATHOLOGY | [address] | | | + + + + + | [facility] | [address] | [place] [address] | | | PATHOLOGY | [address] [...] | + + + + + | [facility] DEPARTMENT OF | [address] | [place] [address] | | | PATHOLOGY | [address] | | | + + + + + | [facility] DEPARTMENT OF | [address] | [place] [address] | | | PATHOLOGY | [address] [...] DEPARTMENT OF | [address] | [place] [address] | | | PATHOLOGY | [address] | | | + + + + + | [facility] | [address] | [place] [address] | | | PATHOLOGY | [address] | | | + + + + + VASC LAB PORTABLE TRANSCRANIAL DOPPLER COMPLETE (10/20/2007 2:23 AM PDT) + + + + + + | Component | Value | Ref Range | Performed | Pathologist | | | | | At | Signature | + + + + + + | VASC LAB | Med Rec No:[id number] | | | | | PORTABLE | [...] AMAccession | | | | | | #[id number]:TRANSCRAN | | | | | | IAL [...] [facility] | [address] | [place], [place] | | | THERAPY | [address] | [address] | | + + + + + | [facility] | [address] | [place], [place] | | | THERAPY | [address] | [address] | | + + + + + [...] + | [facility] | [address] [facility] | [place] [address] | | | PATHOLOGY | [address] | | | + + + + + | [facility] | [address] [facility] | [place] [address] | | | PATHOLOGY | [address] [...] | [facility] | [address] | [place] [address] | | | PATHOLOGY | [address] | | | + + + + + | [facility] | [address] | [place] [address] | | | PATHOLOGY | [address] [...] DEPARTMENT OF | [address] | [place] [address] | | | PATHOLOGY | [address] | | | + + + + + | [facility] DEPARTMENT OF | [address] | [place] [address] | | | PATHOLOGY | [address] [...] | + + + + + | [facility] DEPARTMENT OF | [facility] | [place] [address] | | | PATHOLOGY | [address] | | | + + + + + | [facility] | [facility] | [place] [address] | | | PATHOLOGY | [address] [...] DEPARTMENT OF | [address] | [place] [address] | | | PATHOLOGY | [address] | | | + + + + + | [facility] DEPART[facility] | [address] | [place] [address] | | | PATHOLOGY | [address] [...] DEPARTMENT OF | [address] | [place] [address] | | | PATHOLOGY | [address] | | | + + + + + | [facility] DEPARTMENT OF | [address] | [place] [address] | | | PATHOLOGY | [address] [...] | [facility] | [address] | [place] [address] | | | PATHOLOGY | [address] | | | + + + + + | [facility] | [address] | [place] [address] | | | PATHOLOGY | [address] [...] | + + + + + | [facility] DEPARTMENT OF | [address] | [place] [address] | | | PATHOLOGY | [address] | | | + + + + + | [facility] DE[facility]MENT OF | [facility] | [place] [address] | | | PATHOLOGY | [address] [...] + | [facility] DEPARTMENT OF | [address] [facility] | [place] [address] | | | PATHOLOGY | [address] | | | + + + + + | [facility] DEPARTMENT OF | [address] [facility] | [place] [address] | | | PATHOLOGY | [address] [...] DEPARTMENT OF | [address] | [place] [address] | | | PATHOLOGY | [address] | | | + + + + + | [facility] DEPARTMENT OF | [address] | [place] [address] | | | PATHOLOGY | [address] [...] DEPARTMENT OF | [address] | [place] [address] | | | PATHOLOGY | [address] | | | + + + + + | [facility] DEPARTMENT OF | [address] | [place] [address] | | | PATHOLOGY | [address] [...] | + + + + + | [facility] DEPARTMENT OF | [address] [facility] | [place] [address] | | | PATHOLOGY | [address] | | | + + + + + | [facility] | [address] [facility] | [place] [address] | | | PATHOLOGY | [address] [...] | + + + + + | [facility] DEPART[facility] | [address] [facility] | [place] [address] | | | PATHOLOGY | [address] | | | + + + + + | [facility] DEPARTMENT | [facility] | [place] [address] | | | PATHOLOGY | [address] [...] | | | | | | MMarine, PhD.Adult Basic Education Manager | | | | | | [...] artery. | | | | | | A5-Stateless Justin was | | | | | [...] | [facility] DEPARTMENT OF | [address] | [place] [address] | | | PATHOLOGY | [address] | | | + + + + + | [facility] DEPARTMENT OF | [address] | [place] [address] | | | PATHOLOGY | [address] [...] + | [facility] DE[facility]MENT OF | [address] [facility] | [place] [address] | | | PATHOLOGY | [address] | | | + + + + + | [facility] DEPARTMENT OF | [address] [facility] | [place] [address] | | | PATHOLOGY | [address] [...] + + + | CSF RBC | [id number] | /cu mm | [facility] | | [...] DEPARTMENT OF | [address] | [place] [address] | | | PATHOLOGY | [address] | | | + + + + + | [facility] DEPARTMENT | [address] | [place] [address] | | | PATHOLOGY | [address] | | | + + + + + PROTEIN, CSF (10/19/2007 6:01 AM PDT) + +---------+ + + + | Component | Value | Ref Range | Performed | Pathologist | | | | | At | Signature | + +---------+ + + + | TOTAL | 298 (H) | 15 - 45 mg/dL | [facility] | | | PROTEIN CSF | | [...] DEPARTMENT OF | [address] | [place] [address] | | | PATHOLOGY | [address] | | | + + + + + | [facility] DEPARTMENT | [address] | [place] [address] | | | PATHOLOGY | [address] | | | + + + + + GLUCOSE, CSF (10/19/2007 6:01 AM PDT) + +--------+ + + + | Component | Value | Ref Range | Performed | Pathologist | | | | | At | Signature | + +--------+ + + + | GLUCOSE CSF | 79 (H) | 40 - 70 mg/dL | [facility] | | | | | | DEPARTMENT [...] | + + + + + | [facility] DEPARTMENT OF | [address] [facility] | [place] [address] | | | PATHOLOGY | [address] | | | + + + + + | [facility] DEPARTMENT OF | [address] [facility] | [place] [address] | | | PATHOLOGY | [address] [...] at | | | | | | [facility]. Culture: | | | | | | Final Report: No | | | | | | growth after 3 days. | | | | | | Final ReportComment: | | | | | | Test performed at [facility] | | | | | | [place] [...] + + + | [facility] | [address] | [place] [address] | | | LAB-MICRO | | | [...] + | VASC LAB | Med Rec No:[id number] | | | | | PORTABLE | [...] AMAccession | | | | | | #[id number]:CEREBROVA | | | | | | SCULAR [...] + | VASC LAB | Med Rec No:[id number] | | | | | PORTABLE | [...] AMAccession | | | | | | #[id number]:TRANSCRAN | | | | | | IAL [...] DEPARTMENT OF | [address] | [place] [address] | | | PATHOLOGY | [address] | | | + + + + + | [facility] DEPARTMENT OF | [address] | [place] [address] | | | PATHOLOGY | [address] [...] | + + + + + | [facility] DEPARTMENT OF | [address] | [place] [address] | | | PATHOLOGY | [address] | | | + + + + + | [facility] DEPARTMENT OF | [address] | [place] [address] | | | PATHOLOGY | [address] [...] | + + + + + | [facility] DEPARTMENT OF | [address] | [place] [address] | | | PATHOLOGY | [address] | | | + + + + + | [facility] DEPARTMENT OF | [address] | [place] [address] | | | PATHOLOGY | [address] [...] + | [facility] | [address] [facility] | [place] [address] | | | PATHOLOGY | [address] | | | + + + + + | [facility] | [address] [facility] | [place] [address] | | | PATHOLOGY | [address] [...] | + + + + + | [facility] DEPARTMENT OF | [address] | [place] [address] | | | PATHOLOGY | [address] | | | + + + + + | [facility] DEPARTMENT OF | [address] | [place] [address] | | | PATHOLOGY | [address] [...] | [address] | [place] [address] | | | PATHOLOGY | [address] | | | + + + + + | [facility] DEPARTMENT OF | [address] | [place] [address] | | | PATHOLOGY | [address] [...] + | [facility] | [address] [facility] | [place] [address] | | | PATHOLOGY | [address] | | | + + + + + | [facility] | [address] [place] [address] | [place] [address] | | | PATHOLOGY | [address] [...] + + | [facility] | [facility] | [place] [address] | | | PATHOLOGY | [address] | | | + + + + + | [facility] DEPARTMENT OF | [facility] | [place] [address] | | | PATHOLOGY | [address] [...] | + + + + + | [facility] DEPARTMENT OF | [address] | [place] [address] | | | PATHOLOGY | [address] | | | + + + + + | [facility] DEPARTMENT OF | [address] [facility] | [place] [address] | | | PATHOLOGY | [address] [...] RLB ([facility]) | | | [facility] [place] [address] | | | [place] [address] | | + + + + + + + + | Performing | Address | City/State/Zipcode | Phone Number | | Organization | | | | + + + + + | [facility] | [address] | [place] [address] | | | LABORATORY | | | [...] ([facility]) [facility] | | | [place] [address] | | | [place] [address] | | + + + + + + + + | Performing | Address | City/State/Zipcode | Phone Number | | Organization | | | | + + + + + | [facility] | [address] | [place] [address] | | | LABORATORY | | | [...] | + + + + + | [facility] DEPARTMENT OF | [address] | [place] [address] | | | PATHOLOGY | [address] | | | + + + + + | [facility] DEPARTMENT OF | [address] | [place] [address] | | | PATHOLOGY | [address] [...] | + + + + + | [facility] DEPARTMENT | [address] [facility] | [place] [address] | | | PATHOLOGY | [address] | | | + + + + + | [facility] | [address] [facility] | [place] [address] | | | PATHOLOGY | [address] [...] + | [facility] | [address] [facility] | [place] [address] | | | PATHOLOGY | [address] | | | + + + + + | [facility] DEPARTMENT OF | [address] [facility] | [place] [address] | | | PATHOLOGY | [address] [...] | + + + + + | [facility] DEPARTMENT OF | [address] | [place] [address] | | | PATHOLOGY | [address] | | | + + + + + | [facility] | [facility] [address] | [place] [address] | | | PATHOLOGY | [address] [...] + | [facility] | [address] [facility] | [place] [address] | | | PATHOLOGY | [address] | | | + + + + + | [facility] | [facility] | [place] [address] | | | PATHOLOGY | [address] [...] | | | | | | right [id number] into two | | | | | [...] Brandie | | | | | | M.D.Adult Basic Education Manager | | | | | | [...] the | | | | | | SWAZI and lateral | | | | | [...] artery. | | | | | | A5-Stateless Justin was | | | | | [...] | | + +---------+ + + | [facility] DEPARTMENT OF | | | | | [...] + + + + + | [facility] | [address] [facility] | [place] [address] | | | PATHOLOGY | [address] | | | + + + + + | [facility] DEPARTMENT OF | [address] [facility] | [place] [address] | | | PATHOLOGY | [address] [...] DEPARTMENT OF | [address] | [place] [address] | | | PATHOLOGY | [address] | | | + + + + + | [facility] DEPARTMENT | [address] | [place] [address] | | | PATHOLOGY | [address] [...] + | [facility] | [address] [facility] | [place] [address] | | | PATHOLOGY | [address] | | | + + + + + | [facility] | [facility] | [place] [address] | | | PATHOLOGY | [address] [...] DEPARTMENT OF | [address] | [place] [address] | | | PATHOLOGY | [address] | | | + + + + + | [facility] | [address] | [place] [address] | | | PATHOLOGY | [address] [...] + | [facility] | [address] [facility] | [place] [address] | | | PATHOLOGY | [address] | | | + + + + + | [facility] | [address] [facility] | [place] [address] | | | PATHOLOGY | [address] [...] + | [facility] | [address] | [place] [address] | | | PATHOLOGY | [address] | | | + + + + + | [facility] | [address] | [place] [address] | | | PATHOLOGY | [address] [...] + + + + | PRODUCT | [id number] | | [facility] | | | UNIT [...] DEPARTMENT OF | [address] | [place] [address] | | | PATHOLOGY | [address] | | | + + + + + | [facility] | [address] | [place] [address] | | | PATHOLOGY | [address] [...] + + + + | PRODUCT | [id number] | | [facility] | | | UNIT [...] + | [facility] | [address] [facility] | [place] [address] | | | PATHOLOGY | [address] | | | + + + + + | [facility] DEPARTMENT OF | [facility] | [place] [address] | | | PATHOLOGY | [address] [...] | + + + + + | [facility] DEPARTMENT OF | [address] | [place] [address] | | | PATHOLOGY | [address] | | | + + + + + | [facility] | [address] | [place] [address] | | | PATHOLOGY | [address] [...] | + + + + + | [facility] DEPARTMENT OF | [address] | [place] [address] | | | PATHOLOGY | [address] | | | + + + + + | [facility] DEPARTMENT OF | [address] | [place] [address] | | | PATHOLOGY | [address] [...] + + | [facility] | [address] | [place] [address] | | | PATHOLOGY | [address] | | | + + + + + | [facility] DEPARTMENT OF | [address] | [place] [address] | | | PATHOLOGY | [address] [...] | + + + + + | [facility] DEPARTMENT OF | [address] | [place] [address] | | | PATHOLOGY | [address] | | | + + + + + | [facility] | [address] [facility] | [place] [address] | | | PATHOLOGY | [address] | | | + + + + + OPERATION RECORD (10/18/2007 12:00 AM PDT) + + + | Narrative | Performed At | + + + | [id number] | | | [id number] | | | [id number] [facility] C[place]YL [id number] | | | Date: 10/18/2007 Attending Surgeon: | | | Magnolia Diego M.D. Adult Basic Education Manager(s): | | | Xochitl Davis M.D. [...] flap was | | | turned anteriorly. Peggs holes were then placed over the root [...] M.D. KG / HS | | | [id number] / [id number] / [id number] / | | | | | + + + + + | Procedure Note | + + | Ryan Howell, Xochitl - 10/18/2007 12:00 AM PDT [id number] | | [id number] [id number] [facility] CASTRO | | [id number] [id number] Date: 10/18/2007 Attending Surgeon: | | Magnolia Diego M.D. Adult Basic Education Manager(s): Xochitl Davis M.D. | | Preoperative [...] | | a myocutaneousflap was turned anteriorly. Peggs holes were then placed over the root [...] aneurysm. | | Narinder Serrano M.D. / [id number] / [id number] / [id number] /D: | | 10/27/2007T: 10/27/2007 | | [...] a myocutaneous | |flap was turned anteriorly. Peggs holes were then placed over the root [...] | | | |KG / HS | |[id number] / [id number] / 21945 / | | | | | | | | | | | | | | | | | | | | | + + TEACHING PHYSICIAN (10/18/2007 12:00 AM PDT) + + + | Narrative | Performed At | + + + | [id number] | | | [id number] [id number] | | | ONO[facility]YL [id number] | | | Date: 10/18/2007 Attending Surgeon: | | | Magnolia Diego M.D. Adult Basic Education Manager(s): | | | Xochitl Davis M.D. | | | Tayolr Chávez M.D. Preoperative Diagnosis(es): | | | [...] M.D. AD | | | / HS [id number] / [id number] / [id number] / | | | | | + + + + + | Procedure Note | + + | Magnolia Diego MD - 10/18/2007 12:00 AM PDT [id number] | | [id number] [id number] ONO[facility] CASTRO | | [id number] Date: 10/18/2007ttending Surgeon: Magnolia | | Narinder Diego Adult Basic Education Manager(s): Xochitl Davis M.D. | | Taylor [...] Dr.Kiarash Davis. Magnolia Diego M.D. MANDEEP / [id number] | | / [id number] / [id number] / T: 10/19/2007 | |Subarachnoid hemorrhage due [...] | | | |AD / HS | |[id number] / [id number] / 74745 / | | | | | | [...] 4:00 | | | | | Starting [facility] 10/19/07 at 1553, | | PM PDT | | | | | Until [facility] 10/19/07 at 1722 | | | | [...] | | | | | | Starting [facility] 10/19/07 at 0700, | | | | [...] PDT | | | | | Until [facility] 10/26/07 at 1316, | | | | [...] | | | | at 1145, Until [facility] 10/26/07 at 0917 | | | | [...]
--- OUTSIDE RECORDS SUMMARY | ~2019-10-22 | XMS | Encounter Summary ---
Demographics + + + | Address | [address] | | | [place] [address] | + + + | Home Phone [...] Team Providers + +------+ + | Care Surgical Asst Name | Role | Phone | [...] | | | Mailcode: [id number] | | ([facility]LY [facility]); Essential | | | | [facility] | | hypertension; | | | | [address] [place], [place] | | Anemia, unspecified | | | | [address] | | type; Tobacco | | | | [phone] | | dependence | +--------+---------+ + + [...] or walk. Surgery check-in location: Admitting - [facility], ninth floor [facility] Surgery Check in Time: The Preoperative [...] it is after office hours, call the [facility] seismograph operator helper at [phone] and ask them to page him or [...] material. In November she was transferred to [facility] for right-si ded wound dehiscence and infection with epidural abscess due to Staph Aureus. She also unde rwent explantation of her BUILDINGS AND GROUNDS COORDINATOR shunt. She had a CT scan today [...] for Women" by Blanco Solis (found on [employer]). COPD -- pt has chronic cough and [...] Allergies reviewed / updated Allergies Allergen Reactions [place] Tar Hives Betadine [Povidone-Iodine (With Soap)] Rash Cipro [Ciprofloxacin] Nausea and Vomiting Codeine Hcl Nausea and Vomiting Sulfa (Sulfonamide Antibiotics) Erythema Past medical history reviewed / updated Past Medical History: Diagnosis Date Abnormal LFTs (liver function tests) CAD in [place] artery s/p NSTEMI 12/27/2014; status post stent placement in the mid LAD Chronic pain COPD on oxygen at night Essential hypertension GERD (gastroesophageal reflux disease) Goiter Hemorrhagic stroke ([facility]) 2007 aneurysm MRSA (methicillin resistant staph aureus) culture positive post cariotomy for SAH Otitis media recent abx preadmit Subarachnoid hemorrhage due to ruptured aneurysm ([facility]) 2007 Tobacco dependence Past surgery reviewed / updated Past Surgical History Procedure Laterality Date Partial thyroidectomy Right Hysterectomy Bladder suspension 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 Public Weigher shunt Tympanoplasty Right 1987 Lumpectomy of left breast 1979 Coronary stent placement 12/28/2014 status post stent placement in the mid LAD Removal of vp digital marketing social media and crm shunt Cholecystectomy Family history reviewed / updated [...] for Women" by Blanco Solis (found on [employer]). COPD -- pt has chronic cough and [...] patient's care. Mable Lee MD [facility] AT [facility] 4TH FLOOR DAY STAY [address] [place] [address] I spent time [...]
--- OUTSIDE RECORDS SUMMARY | ~2019-10-22 | XMS | Encounter Summary ---
Demographics + + + | Address | [address] | | | [place] [address] | + + + | Home Phone | | + + + | Preferred Language | Unknown | + + + | Marital Status | | + + + | Church Affiliation | MET | + + + | Race | White | + + + | Ethnic Group | Not or | + + + Author + + + | Author | [facility] | + + + | Organization | [facility] | + + + | [...] Providers + +------+ + | Care Business Performance Specialist Name | Role | Phone | + +------+ + | Mary Vazquez PA-C | PCP | | + +------+ + Encounter Details +--------+ + + + + | Date | Type | Department | Care Team | Description | +--------+ + + + + | 06/12/ | Telephone | Neurosurgery at | Paramjit Huber MD | | | 2019 | | [facility] [address] | [address] | | | | | Ave [facility] | [place], [place] | | | | | Health and Healing, | [address] | | | | | Building , 8th | [phone] | | | | | floor [place], [place] | | | | | | [address] | | | | | | [phone] | | | +--------+ + + + [...] this encounter Miscellaneous Notes Telephone Encounter - Rojas Salas - 08/02/2018 5:05 PM PDTPatient left VM requesting a call back from [facility] about surgery on 08/03. documented in this encount er Plan of Treatment Not on filedocumented as of this encounter Visit Diagnoses Not on filedocumented in this encounter"
--- OUTSIDE RECORDS SUMMARY | ~2019-10-22 | XMS | Encounter Summary ---
Demographics + + + | Address | [address] | | | [place] [address] | + + + | Home Phone [...] + + + | Author | [facility] | | | and [place] | + + + | Organization | [facility] | | | [...] Team Providers + +------+ + | Care Associate Financial Analyst Name | Role | Phone | [...] | | | | | | [place] [address] | | | | | | [phone] | | | +--------+ + + + [...]
--- OUTSIDE RECORDS SUMMARY | ~2019-10-22 | XMS | Encounter Summary ---
Demographics + + + | Address | [address] | | | [place] [address] | + + + | Home Phone | | + + + | Preferred Language | Unknown | + + + | Marital Status | | + + + | Restorationism Affiliation | MET | + + + | Race | White | + + + | Ethnic Group | Not or | + + + Author + + + | Author | [facility] | + + + | Organization | [facility] | + + + | Address | Unknown | + + + | Phone | Unavailable | + + + Support + + +---------+ + | Name | Relationship | Address | Phone | + + +---------+ + | Augusto Blel | ECON | Unknown | | + + +---------+ + | Thaddeus Gerard | ECON | Unknown | | + + +---------+ + | Eric Leung | ECON | Unknown | | + + +---------+ + Care Team Providers + +------+ + | Care Slitter And Rewinder Machine Operator Name | Role | Phone [...] | MD | | | | | [facility] [address] | | | | | | [address] | | | | | | Mailcode: [id number] | | | | | | [facility] | | | | | | and Healing, | | | | | | [address] Floor | | | | | | [place], [place] | | | | | | [address] | | | | | | [phone] | | | +--------+ + + + [...]
--- OUTSIDE RECORDS SUMMARY | ~2019-10-22 | XMS | Encounter Summary ---
Demographics + + + | Address | [address] | | | [place] [address] | + + + | Home Phone [...] Team Providers + +------+ + | Care Head Of Data Name | Role | Phone | + [...] 2018 | Event | AARON Melendez | [address] | | | | | [facility] | [address] | | | | | Hospital Admitting | [place], [place] | | | | | Desk Located on the | [address] | | | | | 9th floor | [phone] | | | | | [facility] [place] | | | | | | [address] | Alex Evangelista | | | | | | PIPE Santos [address] | | | | | | [address] | | | | | | [place], [place] | | | | | | [address] | | | | | | [phone] | | | | | | | [...] | | | | | drive from [place]); 08/11/18; | | | | | 1206 [...] | | Endotracheal Tube; 7; Oral; | PERFORMANCE IMPROVEMENT COORDINATOR | PERFORMANCE IMPROVEMENT COORDINATOR | | | Cuffed; 12/05/17; 2216 | [...] be different from the original. Cielo Bell [id number] Allergies Allergen Reactions [place] Tar Hives Betadine [Povidone-Iodine (With Soap)] Unknown Cipro [Ciprofloxacin] Nausea and Vomiting Codeine Hcl Nausea and Vomiting Sulfa (Sulfonamide Antibiotics) Erythema Past Surgical History Procedure Laterality Date Partial thyroidectomy Right Hysterectomy Cholecystecomy Bladder suspension 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 Manager Assisted Living shunt Tympanoplasty Right 1987 Lumpectomy of left [...] - 12/05/2017 8:25 PM PDT Cielo Nurard [id number] Allergies Allergen Reactions [place] Tar Hives Betadine [Povidone-Iodine (With Soap)] Unknown [...] gland Goiter Skull defect Coronary arteriosclerosis in [place] artery Acute uxz-XX-ocdbindzt myocardial infarction (HCC) Continuous tobacco abuse Hyperglycemia Draining postoperative wound Past Surgical History Procedure Laterality Date Partial thyroidectomy Right Hysterectomy Cholecystecomy Bladder suspension 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 Manager Assisted Living shunt Tympanoplasty Right 1987 Lumpectomy of left [...] Date RATE 94 12/04/2017 ATRIALRATE 93 12/04/2017 [place] 155 12/04/2017 QRS 100 12/04/2017 QT 352 [...] COPD severe (O2) No dx of sleep newspaper illustrator ea Cardiovascular: Echo 12/2014: Normal LV size [...]
--- OUTSIDE RECORDS SUMMARY | ~2019-10-22 | XMS | Encounter Summary ---
Demographics + + + | Address | [address] | | | [place] [address] | + + + | Home Phone [...] Team Providers + +------+ + | Care Continuous Mining Machine Operator Name | Role | Phone [...] | | | | REQUEST TO | [facility] | [place], [place] | | | | | SURGERY | Rd | [address] | | | | | MEDICAL NURSE | [place], [place] | Phone: | | | | | | [address] | [phone] | | | | | | Phone: | Fax: | | | | | | [phone] | [phone] | | | | | | Fax: | | | | | | | [phone] | | +--------+--------+ + + + + [...] | | | | | | | [place], [place] | | | | | | | [address] | | | | | | | Phone: | | | | | | | [phone] | | | | | | | Fax: | | | | | | | [phone] | | +--------+--------+ + + + + [...] | | | [facility] for | [place], [place] | | | | | Health and Healing, | [address] | | | | | Building 1, 8th | [phone] | | | | | floor [place], [place] | | | | | | [address] | | | | | | [phone] | | | +--------+---------+ + + + [...] shortly before that appoin tment she suffered UT and was placed on ASA/plavix, and was not cleared for surgery. However , since we last saw her, the skin over the screw has regrown, and the screw has actually niranjan rated posteriorly about 1 cm. The skin is intact over the loose screw. She denies recent fe vers/chills, [place], N/V. 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 I spent more than 15 minutes hpmi-ms-ahpz with the patient of which greater than [...] issues or concerns arise. Paramjit Huber MD Motion Picture Director Director, Cerebrovascular and Skull Base Surgery Department of Neurological Surgery and Interventional Neuroradiology [address] [place] [address] documented in this encou nter Plan of [...] | | | | | | approach URBAN REDEVELOPMENT SPECIALIST shunt | | | | | | [...] frontalapproach | | | | | | URBAN REDEVELOPMENT SPECIALIST shunt catheter with | | | | [...]
--- OUTSIDE RECORDS SUMMARY | ~2019-10-22 | XMS | Encounter Summary ---
Demographics + + + | Address | [address] | | | [place] [address] | + + + | Home Phone [...] Team Providers + +------+ + | Care Helix Coil Winder Name | Role | Phone | + +------+ + | Anil Baker DO | PCP | | + +------+ + Reason for Visit + +--------+ + | Reason | Onset | Comments | | | Date | | + +--------+ + | Refill Request | 05/07/ | | | | 2008 | | + +--------+ + Encounter Details +--------+--------+ + + + | Date | Type | Department | Care Team | Description | +--------+--------+ + + + | 05/07/ | Refill | Neurosurgery 3245 | Norberto Bolaños MD | Refill Request | | 2008 | | [facility] | | | | | | Mailcode:[id number] | | | | | | Outpatient Clinic | | | | | | Building [place], | | | | | | [place] [address] | | | | | | [phone] | | | +--------+--------+ + + + [...] this encounter Miscellaneous Notes Telephone Encounter - Norberto Bolaños MD - 05/07/2008 7:58 AM PDTPt seen in ED shunt lester cintron, GS neg and CSF appeared normal, sent home on Clindamycin for 7 days. Since has been doing well. In the interim CSF cultures grew out MRSA which is sensitive to clindamycin. Called i n Rx for 5 more days of ABx, prior to being seen in clinic with Dr Huber.Electronically sign ed by Norberto Bolaños MD at 05/07/2008 7:58 AM PDTdocumented in this encounter Plan of Treatment Not on filedocumented as of this encounter Visit Diagnoses Not on filedocumented in this encounter"
--- OUTSIDE RECORDS SUMMARY | ~2019-10-22 | XMS | Encounter Summary ---
Demographics + + + | Address | [address] | | | [place] [address] | + + + | Home Phone [...] Team Providers + +------+ + | Care Soft Top Installer Name | Role | Phone | + +------+ + | No Pcp Per Patient | PCP | Unavailable | + +------+ + Reason for Visit + +--------+ + | Reason | Onset | Comments | | | Date | | + +--------+ + | Contrast Allergy | 02/16/ | | | Clarification | 2018 | | + +--------+ + Encounter Details +--------+ + + + + | Date | Type | Department | Care Team | Description | +--------+ + + + + | 02/16/ | Telephone | Radiology at | Radiology | Contrast Allergy | | 2017 | | [place] [address] | | Clarification | | | | [address] | | | | | | [place], [place] | | | | | | [address] | | | | | | [phone] | | | +--------+ + + + [...] this encounter Miscellaneous Notes Telephone Encounter - Shahab Chavarria RN - 02/16/2018 1:52 PM PSTCalled pt to confirm dave rgy to contrast, pt does not have allergy to contrast, has betadine allergy only. Last ct sc an pt was given prednisone for premedication and pt does not know why but did fine. She has been ordered prednisone for this upcoming scan and doesnt know why either. Rad RN told pt that she should not take it because she does not have a known contrast allergy. Pt is in agr eement and verbalized understanding. documented in this encounter Plan of Treatment Not on filedocumented as of this encounter Visit Diagnoses Not on filedocumented in this encounter"
--- OUTSIDE RECORDS SUMMARY | ~2019-10-22 | XMS | Encounter Summary ---
Demographics + + + | Address | [address] | | | [place] [address] | + + + | Home Phone | | + + + | Preferred Language | Unknown | + + + | Marital Status | | + + + | Moravian Affiliation | MET | + + + [...] Team Providers + +------+ + | Care Telephone Interviewer Name | Role | Phone | [...] | | | | | [facility] | [place], [place] | | | | | Health and Healing, | [address] | | | | | [facility] | [phone] | | | | | floor [place], [place] | | | | | | [address] | | | | | | [phone] | | | +--------+ + + + [...]
--- OUTSIDE RECORDS SUMMARY | ~2019-10-22 | XMS | Encounter Summary ---
Demographics + + + | Address | [address] | | | [place] [address] | + + + | Home Phone | | + + + | Preferred Language | Unknown | + + + | Marital Status | | + + + | Protestant Affiliation | MET | + + + [...] Team Providers + +------+ + | Care Water Quality Tester Name | Role | Phone | + +------+ + | No Pcp Per Patient | PCP | Unavailable | + +------+ + Encounter Details +--------+ + + + + | Date | Type | Department | Care Team | Description | +--------+ + + + + | 01/16/ | Documentati | Infectious | Saskia Nicolas MD | | | 2018 | on | Diseases at [facility] | [address] | | | | | [address] | [address] | | | | | Loop Physician's | [place], [place] | | | | | [facility] floor | [address] | | | | | [place], [place] | [phone] | | | | | [address] | | | | | | [phone] | | | +--------+ + + + [...]
--- OUTSIDE RECORDS SUMMARY | ~2019-10-22 | XMS | Clinical Summary ---
Demographics + + + | Address | [address] | | | [place] [address] | + + + | Home Phone | | + + + | Preferred Language | Unknown | + + + | Marital Status | | + + + | Orthodox Affiliation | Unknown | + + + [...] Team Providers + +------+ + | Care Open Die Inspector Name | Role | Phone | [...] + + + + + + | Shelby | Hives | High | 06/07/19 | | | | | | 15 | | + + + + + + | [place] Tar | Hives | | 12/28/19 | [...] + + | Coronary artery disease of [place] artery of [place] heart with | 09/07/2016 | | stable angina pectoris | | + + + + + | Overview: Overview: occluded LAD, Anterior [place] 12/28/14 > PCI | | with 2 [...] + + | CAD (coronary artery disease), [place] coronary artery | 03/06/2015 | + + + | Coronary arteriosclerosis in [place] artery | 03/06/2015 | + + + [...] 12/28/2014 | + + + | Acute jtk-IK-blvdhnvjl myocardial infarction | 12/28/2014 | + + + + + | Overview: Overview: Overview: Cath 12/28/14: 100% LAD - | | stented with bare metal due to history of cerebral aneurysm. | | Normal LM; normal LCX; 20-30% RCA. Elevated EDP. Echo.12/28/14. | | LVEF.54%Overview: anterior [place] | | Echo.12/28/14. LVEF.54% | |Overview: | |anterior [place] | + + + + + | [...] / Lot | + +-------+-------+ +--------+--------+--------+ | [employer] | Stent | N/A: | [place] | | 12/21/ | [id number] | | Coronary Stent 2.50mm X | | Heart | SCIENTIFIC | | 2017 | [id number] | | 20mmImplanted: Qty: 1 on | | | MARISOL - BSCI | | | 50 / | | 12/28/2014 by Chana Luu | | | | | | /[id number] | | MD Oksana at [facility] | | | | | | 042 | | [facility] | | | | | | | + +-------+-------+ +--------+--------+--------+ + + | Description:LAD | + + + +-------+-------+ +---+--------+--------+ | [employer] Rebel | Stent | N/A: | [place] | | 08/31/ | [id number] | | Coronary Stent 2.50mm X | | Heart | SCIENTIFIC | | 2017 | [id number] | | 12mmImplanted: Qty: 1 on | | | MARISOL - BSCI | | | 50 / | | 12/28/2014 by Chana Luu | | | | | | /[id number] | | MD Oksana at [facility] | | | | | | 520 [...] +--------+ +---------+--------+ | MEDICARE | MEDICA | [id number] | | [phone] | | Medica | | | RE | | 014-Pr | 5 | | re | | | PART A | | esent | | | | | | AND B | | | | | | + +--------+ +--------+ +---------+--------+ | AARP | AARP | [id number] | | [phone] | | Indemn | [...] surjit | | | 3 (Home) | [address] | + +--------+ +--------+ + + Advance Directives + + + + + | Type | Date Recorded | Patient | Explanation | | | | Claims Adjuster Supervisor | | + + + + + | Power of | 12/27/2014 10:56 | | Patient to bring | | Salon Receptionist | PM | | | + + [...]
--- OUTSIDE RECORDS SUMMARY | ~2019-10-22 | XMS | Encounter Summary ---
Demographics + + + | Address | [address] | | | [place] [address] | + + + | Home Phone [...] Team Providers + +------+ + | Care Gear Shaper Set Up Operator Name | Role | Phone | [...] | | | unspecified | | Rd [place], | | | | | | | [place] | | | | | | | [address] | | | | | | | Phone: | | | | | | | [phone] | | | | | | | Fax: | | | | | | | [phone] | +--------+--------+ + + + + Encounter [...] | | | Pavilion, 3rd floor | [address] | susceptible | | | | [place], [place] | [phone] | Staphylococcus | | | | [address] | | aureus) infection; | | | | [phone] | | Infection due to | | [...] infected shunt status post removal of the RESIDENTIAL CARE FACILITY MANAGER shunt with MSSA s/p ceftriaxone 2 g [...] by hydrocephalus for which she underwent a RESIDENTIAL CARE FACILITY MANAGER shunt mony cement on March 2008 and a synthetic cranioplasty for eroded hardware on October 2015. 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 At that time she was noted to have purulent drainage from the cranioplasty site bryan ng with wound dehiscence. She underwent removal of the cranioplasty and RESIDENTIAL CARE FACILITY MANAGER shunt as well. Al l the hardware [...] She was discharged home the following day [facility] er he presented on 05/14/2018 with enlarging [...] She was then advised to present to [facility] ED. The patient had denied any fever, [...] note above. -Medication Allergies: Allergies Allergen Reactions [place] Tar Hives Betadine [Povidone-Iodine (With Soap)] Rash [...] WBC 7.2. CULTURE, WOUND DEEP W/ ANAEROBE [[id number]] (Abnormal) LAB Collected: 07/11/18 1231 Lab Status: [...] history of cranial osteomyelitis, epidural abscess, infected RESIDENTIAL CARE FACILITY MANAGER shunt with MSSA status p ost removal of the synthetic flap, and RESIDENTIAL CARE FACILITY MANAGER shunt as well - 11/2017. Status post completion o f 6 weeks of IV ceftriaxone on 01/16/2018. 3) hx of subarachnoid hemorrhage status post right pteronial craniotomy for clipping in Sep. This was then complicated by hydrocephalus for which she underwent a RESIDENTIAL CARE FACILITY MANAGER shunt mony cement on March 2008 and [...] forward. Marianna Chandler MD INFECTIOUS DISEASES AT [facility] [address]RD FLOOR [address] [place] [address] Mailcode: L457 [place] [address] [phone] signed by Marianna Chandler MD at 07/28/2018 [...]
--- OUTSIDE RECORDS SUMMARY | ~2019-10-22 | XMS | Encounter Summary ---
Demographics + + + | Address | [address] | | | [place] [address] | + + + | Home Phone [...] Team Providers + +------+ + | Care Chemical Dependency Nurse Name | Role | Phone | + [...] Ave | | | | | Ave [facility] for | [place], [place] | | | | | Health and Healing, | [address] | | | | | [place] [address] [facility] | [phone] | | | | | floor [place], [place] | | | | | | [address] | | | | | | [phone] | | | +--------+ + + + [...]
--- OUTSIDE RECORDS SUMMARY | ~2019-10-22 | XMS | Encounter Summary ---
Demographics + + + | Address | [address] | | | [place] [address] | + + + | Home Phone [...] Team Providers + +------+ + | Care Confidential Investigator Name | Role | Phone | + [...] | | | | of external | [place] | [place] | | | | | operation | [address] | [address] | | | | | (surgical) | Phone: | Phone: | | | | | wound, not | [phone] | [phone] | | | | | elsewhere | Fax: | Fax: | | | | | classified, | [phone] | [phone] | | | | | initial | | | | | | | encounter | | | | | | | Procedures | | | | | | | REQUEST TO | | | | | | | SURGERY | | | | | | | INSOLE BEVELER | | | | | | | NC SPLIT | | | | | | | GRFT,HEAD,FA | | | | | | | C,HAND,FEET | | | | | | | <100CM NC | | | | | | | FULL THICK | | | | | | | GRFT | | | | | | | SCALP,ARM,LE | | | | | | | G <20SQC NC | | | | | | | FULL THICK | | | | | | | GRFT | | | | | | | SCALP,ARM | | | | | | | ADD 20SQCM | | | | | | | NC WND PREP | | | | | [...] | | Surgery Services at | [facility], | | | | | [facility] [address] | [place] [address] | | | | | [facility] for | [phone] | | | | | Health and Healing, | | | | | | [place] [address] | | | | | | [place], [place] | | | | | | [address] | | | | | | [phone] | | | +--------+---------+ + + + [...] encounter Progress Notes Ata White MD - 10/04/2018 6:04 PM PDTClinic Date:10/04/2018 [...] dressing in there. We took off the [facility] er, and I think that she will [...] 15 minutes with her. MD CHANDRIKA Hansen/NGUYEN /[id number] signed by Ata White MD at 10/05/2018 5:51 PM PDTWax Ata MD - 10/04/2018 10:30 AM PDTDictation #1 [id number] signed by Ata White MD at 10/04/2018 5:57 PM PDTdocumented in this en counter Plan of Treatment Not on filedocumented as of this encounter Visit Diagnoses + + | Diagnosis | + + | Skull defect - Primary Unspecified acquired deformity of head | + + documented in this encounter"
--- OUTSIDE RECORDS SUMMARY | ~2019-10-22 | XMS | Encounter Summary ---
Demographics + + + | Address | [address] | | | [place] [address] | + + + | Home Phone | | + + + | Preferred Language | Unknown | + + + | Marital Status | | + + + | Methodist Affiliation | MET | + + + | Race | White | + + + | Ethnic Group | Not or | + + + Author + + + | Author | [facility] | + + + | Organization | [facility] | + + + | Address [...] Team Providers + +------+ + | Care Physician Specialist Name | Role | Phone | [...] | | | | | | | [id number] | | | | | | | [facility] | | | | | | | [place], | | | | | | | [place] [address] | | | | | | | Phone: | | | | | | | [phone] | +--------+--------+ + + + + Encounter Details +--------+---------+ + + + | Date | Type | Department | Care Team | Description | +--------+---------+ + + + | 05/13/ | Office | Neurosurgery at | Paramjit Huber MD | Communicating | | 2009 | Visit | [facility] [address] | [address] | Hydrocephalus | | | | [address] [facility] | [place], [place] | (Primary Dx) | | | | Health and Healing, | [address] | | | | | [facility] | [phone] | | | | | floor [place], [place] | | | | | | [address] | | | | | | [phone] | | | +--------+---------+ + + + [...] aneurysm, she did eventually require placement of ELECTROPLATING SALES REPRESENTATIVE shunt. She was seen in the ED [...]
--- OUTSIDE RECORDS SUMMARY | ~2019-10-22 | XMS | Encounter Summary ---
Demographics + + + | Address | [address] | | | [place] [address] | + + + | Home Phone | | + + + | Preferred Language | Unknown | + + + | Marital Status | | + + + | Denominational Affiliation | Unknown | + + + [...] Team Providers + +------+ + | Care Parent Trainer Name | Role | Phone | + [...] | | [address] | [place], | | | | | [place], [place] | [place] [address] | | | | | [address] | [phone] | | | | | [phone] | | | +--------+ + + + [...] | | TAPSE: 1.64 cm AR Dec Door: 1.90 m/s2 AR Dec Time: | | [...] TR Vmax: 1.93 m/s | | | Painter Rough: Authenticated by: LOUIE HAMMOND MD Report | [...] cmLVPWd: 0.96 cmLVOT | | Area: 3.33 [id number] Diam: 2.06 cm%FS: 25.75 %EF(Teich): 50.53 %ESV(Teich): [...] | | (A-L): 22.79 ml/m2LAAs A2C: 13.62 [id number] A-L A2C: 34.11 mlLALs A2C: 4.62 | | cmLAAs A4C: 12.46 [id number] A-L A4C: 30.24 mlLALs A4C: 4.36 cmRAAs: 9.31 [id number] | | A-L: 19.38 mlRAESV MOD: 19.43 mlRALs: 3.79 cmTAPSE: 1.64 cmAR Dec Door: 1.90 | | m/s2AR Dec Time: 1601.02 msAR maxP.34 mmHgAR PHT: 464.29 msAR Vmax: 3.05 | | m/Andrea maxP.56 mmHgAV meanP.98 mmHgAV Vmax: 1.77 m/Andrea Vmean: 1.13 m/Andrea | | VTI: 29.05 cmAVA Vmax: 2.24 cm2AVA (VTI): 2.12 ox6UPBN Vmax: 0.00 cm2/m2AVAI | | (VTI): 0.00 cm2/m2LVOT maxP.69 mmHgLVOT meanP.05 mmHgLVSI Dopp: 42.59 | | ml/m2LVSV Dopp: 61.75 mlLVOT Vmax: 1.19 m/sLVOT Vmean: 0.81 m/sLVOT VTI: 18.51 | | cmMV A Ozzy: 1.05 m/sMV DecT: 248.72 msMV E Ozzy: 0.67 m/sMV E/A Ratio: 0.63MV | | PHT: 72.12 msMVA By PHT: 3.05 [id number] e': 0.04 m/sSeptal E/e': 16.34Lateral | | e': 0.02 m/sLateral E/e': 31.86TR maxP.04 mmHgTR Vmax: 1.93 m/s | | Painter Rough:Authenticated by: Ash WALKER Date/Time: 05-09-2017 17:2:54 | [...] | |TAPSE: 1.64 cm | |AR Dec Door: 1.90 m/s2 | |AR Dec Time: 1601.02 [...] |TR Vmax: 1.93 m/s | | | |Painter Rough: | |Authenticated by: LOUIE HAMMOND MD | [...]
--- OUTSIDE RECORDS SUMMARY | ~2019-10-22 | XMS | Encounter Summary ---
Demographics + + + | Address | [address] | | | [place] [address] | + + + | Home Phone [...] Team Providers + +------+ + | Care Nurse Staff Industrial Name | Role | Phone | + [...] | | | | | [facility] | [address] | | | | | Hospital Admitting | [facility] [place] | | | | | Desk Located on the | [address] | | | | | 9th floor | [phone] | | | | | [place], [place] | | | | | | [address] | Dante Mcclure CRNA | | | | | | [address] | | | | | | [address] | | | | | | [place], [place] | | | | | | [address] | | | | | | [phone] | | | | | | | [...] be different from the original. Cielo Bell [id number] Allergies Allergen Reactions [place] Tar Hives Betadine [Povidone-Iodine (With Soap)] Rash [...] disease) Chronic pain Skull defect CAD in [place] artery History of non-ST elevation myocardial infarction [...] Bladder suspension 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 Bonding Agent shunt Tympanoplasty Right 1987 Lumpectomy of left breast 1979 Coronary stent placement 12/28/2014 status post stent placement in the mid LAD Removal of x ray technician shunt Cholecystectomy Current Medication List Name Sig [...] Date RATE 66 09/19/2018 ATRIALRATE 67 09/19/2018 ND 172 09/19/2018 QRS 92 09/19/2018 QT 437 [...] well controlled CAD Sx cardiac stents past [place] Last [place]: > 1 year no valvular problems/murmurs no [...] TO SCALP RECONSTRUCTIO N 20X5 CM at [facility] with Dr Ata White MD. Past medical [...] well controlled CAD Sx cardiac stents past [place] Last [place]: > 1 year no valvular problems/murmurs no [...] TO SCALP RECONSTRUCTI ON 20X5 CM at [facility] with Dr Ata White MD. Past medical [...]
--- OUTSIDE RECORDS SUMMARY | ~2019-10-22 | XMS | Encounter Summary ---
Demographics + + + | Address | [address] | | | [place] [address] | + + + | Home Phone [...] Providers + +------+ + | Care Supervisor Wood Room Name | Role | Phone | + [...] | | | | | | Rd [facility] | | | | | | Hospital Admitting | | | | | | Desk Located on the | | | | | | 9th floor | | | | | | [place], [place] | | | | | | [address] | | | +--------+ + + + [...]
--- OUTSIDE RECORDS SUMMARY | ~2019-10-22 | XMS | Encounter Summary ---
Demographics + + + | Address | [address] | | | [place] [address] | + + + | Home Phone | | + + + | Preferred Language | Unknown | + + + | Marital Status | | + + + | Sabianist Affiliation | Unknown | + + + [...] Team Providers + +------+ + | Care Front Desk Host Name | Role | Phone | + [...] CATH | | | | [address] | [place] | | | | | [place], [place] | [address] | | | | | [address] | | | | | | [phone] | | | +--------+---------+ + + + [...] [place] She presented to the ER at [facility]. She awoke this AM at 7 [...] chest pain. She was taken to the seed laboratory technician. successful PCI of the LAD Bare metal [...] patch on as this could result in CA. She was able to tolerate nebulizer. She [...] and the first on is negative. Echo: [facility] ECHOCARDIOGRAM REPORT STUDY DATE: 12/28/2014 PATIENT NAME: Cielo Bell : 1950 PCP: Lance Pandya CLINICAL HISTORY/DIAGNOSIS: CA A transthoracic echocardiogram with M-mode, pulsed-wave and [...] the affected wrist straigh t. Call the elderly sitter who did your procedure as soon as possible. Other Concerns Call the elderly sitter who did your procedure if you have: Any of these Signs of Infection: Redness Fever higher than 101.5 degrees F or 38.6 degrees C Change in the bruise or lump. Numbness in your arm or wrist. Severe pain that is not relieved by Tylenol. Follow-up Care Continue your prescribed medications unless instructed otherwise. Follow-up with your primary health care provider and elderly sitter after your procedure, as instructed. If you [...] the original. CARDIOLOGY PROGRESS NOTE on 12/29/2014 [facility] Pt. Name/Age/: Cielo uNrard 64 y.o. 1950 Med. Record Number: [id number] Primary Care Physician: Lance Pandya Date of [...] 75 No results for input(s): PHART, PO2ART, PLP8ODE, E6YQHXIA, BEART in the last 168 hours. Recent Labs Lab 12/29/14 0408 12/28/14 0745 12/28/14 0007 TROPONINI 75.39* >100.00* 28.90* Recent Labs Lab 12/29/14407 INR 1.01 Micro results last 72hrs: Microbiology Results (72 hrs) Procedure Component Value Units Date/Time Culture, Respiratory, Lower, Smear [[id number]] Collected: 12/28/14 1236 Order Status: Completed Lab Status: Preliminary result Updated: 12/28/14 1447 Specimen Information: Respiratory / Sputum, expectorated Gram Stain Result 3+ White Blood Cells 1+ Epithelial cells 3+ Gram positive cocci 2+ Gram negative diplococci 1+ Gram negative rods Culture, MRSA [[id number]] Collected: 12/28/14 0808 Order Status: Completed Lab [...] oxyCODONE Electronically signed by: Chana Rangel MD [facility] 12/29/2014 8:06 [facility] Portions of this chart may have been created with ShoppinPal voice recognition software. Occasi onal wrong-word or [...] RN - 12/28/2014 11:09 AM PSTDischarge cardiac seed laboratory technician education performed . Patient given flue dust laborer plavix folder. Patient and patient's family [...] Nausea And Vomiting Codeine Nausea And Vomiting Kings Tar Hives Povidone Iodine Hives Sulfa Antibiotics [...] in the radial right ECG: Evolving anterior CA LAB RESULTS: LIPID No results found for: [...] ECGs available Confirmed by CHANA RANGEL MD ([id number]) on 12/28/2014 6:53:08 AM Troponin I Result [...] in Anterior leads Serial changes of evolving CA Confirmed by CHANA RANGEL MD ([id number]) on 12/28/2014 6:55:04 AM Comprehensive Metabolic Panel [...] Lavender Top Tube Done ASSESSMENT: Acute anterior CA with delayed presentation H/O 2 cerebral aneurysms (coil and clip 2007) HTN Dyslipidemia PLAN: Discussed smoking cessation Discussed medical Rx Echo Electronically signed by: Chana Rangel MD [facility] 12/28/2014 Portions of this chart may have been created with ShoppinPal voice recognition software. Occasi onal wrong-word or [...] [place] She presented to the ER at [facility]. She awoke this AM at 7 [...] and 1 coiled. She also has a RADIOLOGY ADMINISTRATOR shunt that is not functioning and not [...] Nausea And Vomiting Codeine Nausea And Vomiting Kings Tar Hives Povidone Iodine Hives Sulfa Antibiotics [...] normal right radial Skin benign ECG: Anterior CA with Q waves LAB RESULTS: LIPID Not available CHEMISTRY Gluc 127 Creat 0.82 K 4.1 HEMATOLOGY No results found for: WBC 13.1, WBCEX, HGB 13.8 HGBEX, HCT, HCTEX, PLT, 233 I reviewed records from [facility] and [facility] ASSESSMENT: Anterior CA - ongoing pain H/O cerebral aneurysms H/O [...] patient. Electronically signed by: Chana Rangel MD [facility] 12/27/2014 Portions of this chart may have been created with ShoppinPal voice recognition software. Occasi onal wrong-word or [...] Review . Outcome: Progressing Patient lives in [place], [place] and will be discharging home today. PCP is Dr. Pandya. Will follow up with seed laboratory technician to make a appointment. No further needs. Electronically signed by: JUSTINA Guillory 12/29/2014 12:48 After speaking with MARCELL Garcia, she stats that patient needed a nebulizer at discharge. Ashkan glass faxed the Rx, face sheet to [facility] in [place]. She spoke with Vivek to set this [...] on heparin for the ambulance ride from [place] until she went down for stent placement. [...] consent form sig gem. Patient transported to seed laboratory technician with RN and monitor without incident. Electronically [...] | | | | type ([facility]) H/O | | | | | | cerebral aneurysm | | | | | | repair NSTEMI | | | | | | (non-ST elevated | | | | | | myocardial | | | | | | infarction) ([facility]) | | + +------+--------+ + + [...] | | | | | | [employer] | | | | | [...] ST. | [address] | [place] | [phone] | | [facility] | | [address] | | | - LABORATORY | | [...] + | [facility] | [address] | [place] | [phone] | | [facility] | | [address] | | | - LABORATORY | | [...] [address] | [place] | [phone] | | [facility] | | [address] | | | - LABORATORY | | [...] | mL/min/1.73m2 | [facility] | | | [place] | RATE,ESTIMATED | | MEDICAL | | | | mL/min/1.86b1Vnkr than | | CENTER - | | [...] + | [facility] | [address] | [place] | [phone] | | [facility] | | [address] | | | - LABORATORY | | [...] + | [facility] | [address] | [place] | [phone] | | [facility] | | [address] | | | - LABORATORY | | | | + + + + + ECHO Complete (12/28/2014 11:00 AM PST) + + | Specimen | + + | | + + + + + | Narrative | Performed At | + + + | [facility] ECHOCARDIOGRAM REPORT | | | STUDY DATE: 12/28/2014 PATIENT NAME: Cielo Bell | | | : 1950 PCP: Lance Pandya | | | CLINICAL HISTORY/DIAGNOSIS: CA A transthoracic echocardiogram | | | with [...] Hugo Garcia MD | | | PhD [facility] 12/28/2014 11:57 Printing Sales Representative: Karol | | | MARIANA Dawson | [...] ST. | [address] | [place] | [phone] | | [facility] | | [address] | | | - LABORATORY | | [...] | | | | | | [employer] | | | | | [...] [address] | [place] | [phone] | | [facility] | | [address] | | | - LABORATORY | | [...] + | [facility] | [address] | [place] | [phone] | | [facility] | | [address] | | | - LABORATORY | | [...] ST. | [address] | [place], [place] | [phone] | | [facility] | | [address] | | | - LABORATORY | | [...] mL/min/1.73m2 | [facility] | | | [place] | RATE,ESTIMATED | | MEDICAL | | | | mL/min/1.28n0Cdfe than | | CENTER - | | [...] ST. | [address] | [place], [place] | [phone] | | [facility] | | [address] | | | - LABORATORY | | [...] [address] | [place] | [phone] | | [facility] | | [address] | | | - LABORATORY | | [...] MD | | | | | | ([id number]) on 12/28/2014 | | | | | [...] Performed At | + + + | [facility] Percutaneous Coronary Intervention | | | Report PATIENT NAME: Cielo Bell DATE OF : | | | 1950 DATE OF PROCEDURE: | | | 12/28/2014 | | | PRIMARY | | | CARE PROVIDER: Lance Pandya PLASTER APPLICATOR: Chana Rangel, | | | , [facility] PRE-PROCEDURE DIAGNOSIS: NSTEMI with ongoing | [...] | | using a micropuncture kit. A 5-Belarusian PAPA guide catheter was | | | [...] chart were created | | | with ShoppinPal voice recognition software. Occasional wrong-word or | [...] ST. | [address] | [place], [place] | [phone] | | [facility] | | [address] | | | - LABORATORY | | [...] + | [facility] | [address] | [place] | [phone] | | [facility] | | [address] | | | - LABORATORY | | [...] [address] | [place] | [phone] | | [facility] | | [address] | | | - LABORATORY | | [...] | | | | | | [employer] | | | | | [...] [address] | [place] | [phone] | | [facility] | | [address] | | | - LABORATORY | | [...] MD | | | | | | ([id number]) on 12/28/2014 | | | | | [...]
--- OUTSIDE RECORDS SUMMARY | ~2019-10-22 | XMS | Encounter Summary ---
Demographics + + + | Address | [address] | | | [place] [address] | + + + | Home Phone | | + + + | Preferred Language | Unknown | + + + | Marital Status | | + + + | Lutheran Affiliation | Unknown | + + + | Race | White | + + + | Ethnic Group | Not or | + + + Author + + + | Author | [facility] | | | and [place] | + + + | Organization | [facility] | | [...] Team Providers + +------+ + | Care Dental Technician Instructor Name | Role | Phone | [...] | | | IMAGING [address] | [address] | | | | | [address] [place] | [place] [address] | | | | | [place] [address] | | | | | | [phone] | | | +--------+ + + + [...]
--- OUTSIDE RECORDS SUMMARY | ~2019-10-22 | XMS | Encounter Summary ---
Demographics + + + | Address | [address] | | | [place] [address] | + + + | Home Phone [...] Providers + +------+ + | Care Nurse Anesthetist Name | Role | Phone | + [...] Ave | | | | | [address] [facility] | [address] | | | | | Health and Healing, | [place], [place] | | | | | Building | [address] | | | | | floor [place], [place] | [phone] | | | | | [address] | | | | | | [phone] | | | +--------+ + + + [...]
--- OUTSIDE RECORDS SUMMARY | ~2019-10-22 | XMS | Encounter Summary ---
Demographics + + + | Address | [address] | | | [place] [address] | + + + | Home Phone [...] + + + | Author | [facility] | | | and [place] | + + + | Organization | [facility] | | | and [...] Team Providers + +------+ + | Care Surgeon/President Name | Role | Phone | + [...] [address] | | | | | [place], | [place] | | | | | [place] [address] | [address] | | | | | [phone] | | | +--------+--------+ + + + [...]
--- OUTSIDE RECORDS SUMMARY | ~2019-10-22 | XMS | Encounter Summary ---
Demographics + + + | Address | [address] | | | [place] [address] | + + + | Home Phone | | + + + | Preferred Language | Unknown | + + + | Marital Status | | + + + | Baptism Affiliation | Unknown | + + + [...] Team Providers + +------+ + | Care Special Programs Director Name | Role | Phone | [...] + + | 08/09/ | Telephone | [facility] | Chana Luu, | Other (plan of care) | | 2016 | | CARDIOLOGY [address] | MD [address] | | | | | [place], | [place] | | | | | [place] [address] | [address] | | | | | [phone] | | | +--------+ + + + [...] 9:21 AM PDTReferral created (see referra l #[id number] for updates). el ephone Encounter - Lucille Costa RN - 08/09/2016 2:21 PM PDTShhelena notified. I will as k PSR's to please start the referral and send records as needed. Diagnosis of CAD, ischemic cardiomyopathy, abnormal stress test. Should be referral to construction project manager at [facility] ...........................................Lucille Costa RN on 08/09/16 at 14:21El ectronically signed by Lucille Costa RN at 08/09/2016 2:22 PM PDTTelephone Encounter - Tom piotrLucille RN - 08/09/2016 2:19 PM PDTIncrease the Lipitor to 40 mg a day and [facility] ele[facility] Encounter - Lucille Costa RN - 08/09/2016 11:41 AM PDTSheryl picked up during leaving message. She states that she is already on the lipitor 20mg that she jus t started per Dr Luu, she would like to know if she should increase it to 40mg. She is willing to go to [facility]. I will consult Dr Luu about the [...] would need t o send her to [facility]. Maybe she would prefer to have the angiogram done there? Switch Pravachol to Lipitor 40 mg a day. The lipid is not well controlled. Recheck lipid in 3 months. Bell Tdocumented in this encounter Plan of Treatment Not on filedocumented as of this encounter Visit Diagnoses Not on filedocumented in this encounter"
--- OUTSIDE RECORDS SUMMARY | ~2019-10-22 | XMS | Encounter Summary ---
Demographics + + + | Address | [address] | | | [place] [address] | + + + | Home Phone [...] Team Providers + +------+ + | Care Batter Depositor Name | Role | Phone | + [...] | | CT HEAD WO | [address] | | | | | | CONTRAST | Rd | | | | | | | [place], [place] | | | | | | | [address] | | | | | | | Phone: | | | | | | | [phone] | | | | | | | Fax: | | | | | | | [phone] | | +--------+--------+ + + + + [...] | | | CT HEAD WO | [facility] | | | | | | CONTRAST | Rd | | | | | | | [place], [place] | | | | | | | [address] | | | | | | | Phone: | | | | | | | [phone] | | | | | | | Fax: | | | | | | | [phone] | | +--------+--------+ + + + + Encounter Details +--------+ + + + + | Date | Type | Department | Care Team | Description | +--------+ + + + + | 10/02/ | Hospital | Diagnostic Imaging | | | | 2015 | Encounter | Services at [facility] | | | | | | [address] | | | | | | [address] [facility] | | | | | | [address] | | | | | | [place], [place] | | | | | | [address] | | | | | | [phone] | | | +--------+ + + + [...] | | | | | | approach PALLET STONE POSITIONER shunt | | | | | | [...] frontalapproach | | | | | | PALLET STONE POSITIONER shunt catheter with | | | | [...]
--- OUTSIDE RECORDS SUMMARY | ~2019-10-22 | XMS | Encounter Summary ---
Demographics + + + | Address | [address] | | | [place] [address] | + + + | Home Phone [...] Team Providers + +------+ + | Care Temple Meat Cutter Name | Role | Phone | [...] | | | Ave [facility] | [place], [place] | frontotemporal | | | | Health and Healing, | [address] | synthetic custom | | | | | [phone] | cranioplasty (dos: | | | | floor [place], [place] | | 05/09/18) with | | | | [address] | | readmission | | | | [phone] | | (05/14/) for | | | [...] is Carri,with the Department of Neurosurgery at [facility]. I am contacting you today in [...] You can reach the nurse team at [phone]. A voice message was left. If the [...]
--- OUTSIDE RECORDS SUMMARY | ~2019-10-22 | XMS | Encounter Summary ---
Demographics + + + | Address | [address] | | | [place] [address] | + + + | Home Phone [...] Team Providers + +------+ + | Care Molder Setter Name | Role | Phone | + [...] | | | Surgery Services at | [address] [place], | (Primary Dx) | | | | [facility] [address] | [place] [address] | | | | | [address] | [phone] | | | | | Physician's | | | | | | Pavilion, 2nd floor | | | | | | [place], [place] | | | | | | [address] | | | | | | [phone] | | | +--------+---------+ + + + [...] next she comes in. MD CHANDRIKA Hansen/NGUYEN /[id number] signed by Ata White MD at 12/26/2017 9:20 AM Ata Siddiqui MD - 12/23/2017 2:45 PM PDTDictation #1 [id number] signed by Ata White MD at 12/23/2017 3:15 PM PDTdocumented in this en counter Plan of Treatment Not on filedocumented as of this encounter Visit Diagnoses + + | Diagnosis | + + | History of cranioplasty - Primary | + + documented in this encounter"
--- OUTSIDE RECORDS SUMMARY | ~2019-10-22 | XMS | Encounter Summary ---
Demographics + + + | Address | [address] | | | [place] [address] | + + + | Home Phone | | + + + | Preferred Language | Unknown | + + + | Marital Status | | + + + | Buddhist Affiliation | MET | + + + [...] Team Providers + +------+ + | Care American Studies Professor Name | Role | Phone | [...] | | | | | | Rd [facility] | | | | | | Hospital Admitting | | | | | | Desk Located on the | | | | | | 9th floor | | | | | | [place], [place] | | | | | | [address] | | | +--------+ + + + [...]
--- OUTSIDE RECORDS SUMMARY | ~2019-10-22 | XMS | Encounter Summary ---
Demographics + + + | Address | [address] | | | [place] [address] | + + + | Home Phone [...] Providers + +------+ + | Care Administrative Resident Name | Role | Phone | + [...] | | | unspecified | | Rd [facility], | | | | | | | [place] | | | | | | | [address] | | | | | | | Phone: | | | | | | | [phone] | | | | | | | Fax: | | | | | | | [phone] | +--------+--------+ + + + + Encounter [...] | | | | Loop Physician's | [facility], [place] | Encounter for | | | | Pavilion, 3rd floor | [address] | long-term (current) | | | | [place], [place] | [phone] | use of antibiotics | | | | [address] | | | | | | [phone] | | | +--------+---------+ + + + [...] scribe for Shabana Bower who is a Raking Machine Operator Comparator Operator. I have reviewed and verified the informa tion that I'm entering for this patient is accurate. 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 Female with CAD s/p [place], HTN, SAH s/p right pterional c raniotomy [...] I reviewed the history from the patient's [facility] admiss ion, including but not limited to all pertinent ID consultation notes, surgical procedures & findings, culture results & lab tests, pathology reports, case management notes, and the [facility] discharge summary. History: 67 y/o F with CAD s/p [place], HTN, SAH s/p right pterional craniotomy for clipping (09/2007) c/b hydrocephalus treated by a right frontal VPS (03/2008) and synthetic cranioplasty for eroded hardwarein 10/2015. 12/03 presented with a week of increasing headache and purulent draina ge from the cranioplasty site with wound dehiscence, and on 12/06/17 underwent removal of cr anioplasty and DITCHING MACHINE OPERATING ENGINEER shunt as well as washout or epidural [...] new allergic reactions have been noted today. Foard tar; Betadine [povidone-iodine (with soap)]; Cipro [ciprofloxacin]; [...] postsurgical changes of right frontal cranioplasty and DITCHING MACHINE OPERATING ENGINEER shunt removal without ac redding intracranial abnormality. Fluid and gas collection in the cranioplasty bed is unchanged. Stable bifrontal encephalomalacia. Saskia Nicolas MD INFECTIOUS DISEASES AT [facility] 3RD FLOOR [address] [facility] Mailcode: [address] [place] [address] documented in this enc ounter Plan of Treatment Not on filedocumented as of this encounter Visit Diagnoses + + | Diagnosis | + + | Acute osteomyelitis of cranium (HCC) - Primary | + + | Encounter for long-term (current) use of antibiotics | + + documented in this encounter
--- OUTSIDE RECORDS SUMMARY | ~2019-10-22 | XMS | Encounter Summary ---
Demographics + + + | Address | [address] | | | [place] [address] | + + + | Home Phone | | + + + | Preferred Language | Unknown | + + + | Marital Status | | + + + | Zoroastrianism Affiliation | MET | + + + | Race | White | + + + | Ethnic Group | Not or | + + + Author + + + | Author | [facility] | + + + | Organization | [facility] | + + + | Address | Unknown | + + + | Phone | Unavailable | + + + Support + + +---------+ + | Name | Relationship | Address | Phone | + + +---------+ + | uAgusto Bell | ECON | Unknown | | + + +---------+ + | Thaddeus Gerard | ECON | Unknown | | + + +---------+ + | Eric Leung | ECON | Unknown | | + + +---------+ + Care Team Providers + +------+ + | Care Pumpman Name | Role | Phone | + [...] Head and Neck | [address] [facility] | | | | | Surgery Services at | [facility] [address] | | | | | [facility] [address] | [place], [place] | | | | | [facility] | [address] | | | | | Health and Healing, | [phone] | | | | | Building | | | | | | [place], [place] | | | | | | [address] | | | | | | [phone] | | | +--------+ + + + [...]
--- OUTSIDE RECORDS SUMMARY | ~2019-10-22 | XMS | Encounter Summary ---
Demographics + + + | Address | [address] | | | [place] [address] | + + + | Home Phone | | + + + | Preferred Language | Unknown | + + + | Marital Status | | + + + | Mandaeism Affiliation | Unknown | + + + | Race | White | + + + | Ethnic Group | Not or | + + + Author + + + | Author | [facility] | | | and [place] | + + + | Organization | [facility] | | | and [...] Team Providers + +------+ + | Care Carbider Name | Role | Phone | + [...] | | | | | YOSELYNP/BRADY | [address] | [address] Phone: | | | | | Procedures | Phone: | [phone] | | | | | [place] OFFICE | [phone] | Fax: | | | | | CONSULTATION | Fax: | [phone] | | | | | NEW/ESTAB | [phone] | | | | | | PATIENT [...] + + | 03/06/ | Office | [facility] | Remington Prado | NSTEMI (non-ST | | 2016 | Visit | CARDIOLOGY [address] | MD Ch[address] | elevated myocardial | | | | [place], | [address] [place] | infarction) ([facility]) | | | | [place] [address] | [place] [address] | (Primary Dx); H/O | | | | [phone] | [phone] | cerebral aneurysm | | | | | | repair; Coronary | | | | | | artery disease | | | | | | involving rincon | | | | | | coronary artery of | | | | | | rincon heart without | | | | | [...] of this encounter Progress Notes Renetta Lawson, Edger Runner - 03/06/2015 10:32 AM PSTFormatting of this [...] Nausea And Vomiting Codeine Nausea And Vomiting [place] Tar Hives Povidone Iodine Hives Sulfa Antibiotics Other reaction(s): Erythema ROS ROS No pertinent changes. She had surgery for a cerebral aneurysm many years ago. One of the screws used to close the skull has become loose and the neurosurgeon in [facility] is planning on revising this situation. [...] ontinue the clopidogrel when [facility]. Electronically signed by: Abrahan Prado MD [facility] 03/06/2015 Portions of this chart may have been created with [employer]may voice recognition software. Occasi onal wrong-word or [...] + + | Coronary artery disease involving rincon coronary artery of rincon heart without | | angina pectoris | + + documented in this encounter
--- OUTSIDE RECORDS SUMMARY | ~2019-10-22 | XMS | Encounter Summary ---
Demographics + + + | Address | [address] | | | [place] [address] | + + + | Home Phone [...] Team Providers + +------+ + | Care Data Integration Architect Name | Role | Phone | [...] at | | | | | | [facility] | | | | | | [address] | | | | | | [facility] | | | | | | and Healing, | | | | | | [address] | | | | | | [place], [place] | | | | | | [address] | | | | | | [phone] | | | +--------+ + + + [...] or walk. Surgery check-in location: Admitting - [facility], ninth floor lobby Surgery Check in [...] ch as Uber/Lyft), or public transportation. An Uber/Lyft/straight truck driver does not count as the responsible [...] is after office hours, call the [facility] skimmer scoop operator at [phone] and ask them to page him or [...]
--- OUTSIDE RECORDS SUMMARY | ~2019-10-22 | XMS | Encounter Summary ---
Demographics + + + | Address | [address] | | | [place] [address] | + + + | Home Phone | | + + + | Preferred Language | Unknown | + + + | Marital Status | | + + + | Rastafari Affiliation | Unknown | + + + | Race | White | + + + | Ethnic Group | Not or | + + + Author + + + | Author | [facility] | | | and [place] | + + + | Organization | [facility] | | | [...] Team Providers + +------+ + | Care Driver Helper Name | Role | Phone | [...] + + | 03/11/ | Telephone | [facility] Cahdd Tian MD | Appointment (RECALL) | | 2017 | | CARDIOLOGY [address] | | | | | [place], | [place], [place] | | | | | [place] [address] | [phone] | | | | | [phone] | | | +--------+ + + + [...]
--- OUTSIDE RECORDS SUMMARY | ~2019-10-22 | XMS | Encounter Summary ---
Demographics + + + | Address | [address] | | | [place] [address] | + + + | Home Phone [...] + + | Author | [facility] | | | and [place] | + + + | Organization | [facility] | | | [...] Team Providers + +------+ + | Care Insurance Claims Assistant Name | Role | Phone | [...] | [address] | [address] | | | | | Procedures | [place] | [place], | | | | | [place] Nuclear | [place], [place] | [place] | | | | | Stress Test | [address] | [address] | | | | | (Vasodilator | Phone: | Phone: | | | | | ) CHG | [phone] | [phone] | | | | | MYOCARDIAL | Fax: | Fax: | | | | | SPECT | [phone] | [phone] | | | | | MULTIPLE | | | | | | | STUDIES [place] | | | | | | | CV STRS TST | | | | | | | XERS&/OR RX | | | | | | | CONT ECG W/O | | | | | | | I&R [place] | | | | | | | [...] + + | 08/06/ | Hospital | [facility] | Chana Luu, | | | 2017 | Encounter | MED CTR NUCLEAR | MD [address] | | | | | MEDICINE [address] | [place], [place] | | | | | [address], | [address] | | | | | [place] [address] | | | | | | [phone] | | | +--------+ + + + [...]
--- OUTSIDE RECORDS SUMMARY | ~2019-10-22 | XMS | Encounter Summary ---
Demographics + + + | Address | [address] | | | [place] [address] | + + + | Home Phone [...] Team Providers + +------+ + | Care Forestry Support Specialist Name | Role | Phone | [...] | hemorrhage) (HCC); | | | | [facility] | | Essential | | | | [address] [place], [place] | | hypertension; | | | | [address] | | Chronic obstructive | | | | [phone] | | pulmonary disease, | | | [...] | Cathet | prior to arrival to [facility]); 1000 | | | | er | [...] or walk. [facility]: [facility] Surgery Check in [...] it is after office hours, call the [facility] assembling machine operator at [phone] and ask them to page him or h er. documented in this encounter Progress Notes Isamar Callahan MA - 10/06/2015 9:58 AM PDT Telephone contact made with patient. Relayed positive nasal culture result. Informed patien t of the need to pick pulling machine operator Rx at her pharmacy, refer to education materials given at clinic vi sit, and start the checklist given at clinic visit on the day of this call OR 5 days prior t o the day of surgery. able Jerry MD - 10/03/2015 4:59 PM PDT Quick Note: 10/03/2015 Nasal culture screening during PMC visit is positive for MSSA. [facility] [place] 1) Call the patient to inform of positive nasal culture and review instructions given duri ng the visit regarding the use of Bactroban 2) Instruct the patient to pick pulling machine operator prescription for Bactroban at the pharmacy listed in EP IC. 3) Per [facility] protocol, activate order for Bactroban [...] reviewed / updated Allergies Allergen Reactions [place] Tar Hives Betadine [Povidone-Iodine (With Soap)] Unknown Cipro [Ciprofloxacin] Nausea and Vomiting Codeine Hcl Nausea and Vomiting Sulfa (Sulfonamide Antibiotics) Erythema Past medical history reviewed / updated Past Medical History Diagnosis Date GERD (gastroesophageal reflux disease) Essential hypertension Tobacco dependence COPD on oxygen at night Otitis media recent abx preadmit Chronic pain CVA (cerebral vascular accident) ([facility]) 2007 Subarachnoid hemorrhage due to ruptured aneurysm ([facility]) 2007 Benign neoplasm of major salivary glands Goiter CAD in [place] artery s/p NSTEMI 12/27/2014; status post stent placement in the mid LAD Abnormal LFTs (liver function tests) MRSA (methicillin resistant staph aureus) culture positive post cariotomy for SAH Past surgery reviewed and updated Past Surgical History Procedure Date Partial thyroidectomy Hysterectomy Cholecystecomy Bladder suspension 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 [employer] shunt Tympanoplasty 1987 Lumpectomy of left breast [...] Alert and appropriate; nl affect. alert Findings: Residential Real Estate Appraiser nial nerves 2-12 intact, Motor 5/5 strength [...] to this patient's care. Mable Lee MD [facility] PREOPERATIVE MEDICINE CLINIC AT [facility] 4TH FLOOR DAY STAY [address] [facility] [place] [address] I spent time counseling the [...] + +--------+ + + | COMMUNICATION TO [facility] | Procedures | Routin | [...] DEPT OF | [address] | [place], [place] | | | CARDIOLOGY | [address] | [address] | | + + + + + [...] | + + + + + | [facility] | [address] | [place] [address] | | | SERVICES, SPECIAL | RAMSES [...] | + + + + + | [facility] | [address] | [place] [address] | | | SERVICES, CORE | RAMSES [...]
--- OUTSIDE RECORDS SUMMARY | ~2019-10-22 | XMS | Encounter Summary ---
Demographics + + + | Address | [address] | | | [place] [address] | + + + | Home Phone [...] Team Providers + +------+ + | Care Photographic Processor Name | Role | Phone | [...] S Tommie | JORGE LUIS Hannon [address] [facility] | | | | | [facility] for | [facility] | | | | | Health and Healing, | [place], [place] | | | | | Building [address]th | [address] | | | | | floor [place], [place] | [phone] | | | | | [address] | | | | | | [phone] | | | +--------+ + + + [...] 07/14/2018 8:35 AM PDTPatient was [facility] undergone cranioplasty explant [...]
--- OUTSIDE RECORDS SUMMARY | ~2019-10-22 | XMS | Encounter Summary ---
Demographics + + + | Address | [address] | | | [place] [address] | + + + | Home Phone [...] Team Providers + +------+ + | Care Tire Buster Name | Role | Phone | + +------+ + | Mary Vazquez PA-C | PCP | | + +------+ + Reason for Visit + +--------+ + | Reason | Onset | Comments | | | Date | | + +--------+ + | Pre-op evaluation | 04/25/ | | | | 2019 | | + +--------+ + Encounter Details +--------+ + + + + | Date | Type | Department | Care Team | Description | +--------+ + + + + | 04/25/ | Telephone-S | Preoperative | | Pre-op evaluation | | 2019 | cheduled | Medicine Clinic at | | | | | | [facility] 4th Floor Day | | | | | | Stay [address] | | | | | [address] | | | | | | Mailcode: [id number] | | | | | | [facility] | | | | | | [address] [place], [place] | | | | | | [address] | | | | | | [phone] | | | +--------+ + + + + Anesthesia Record + + + + + | Procedure Name | Responsible | Anesthesia Start | Anesthesia Stop Time | | | Anesthesiologist | Time | | + + + + + | RIGHT SYNTHETIC | Morenita Quispe MD | 05/08/18826 | 05/08/18 1135 | | CRANIOPLASTY; (Right [...] | | 8 | | reviewed, LAURA marroquin, anesthetic plan made or approved by | [...] Yes; Left; thumb; | 12/03/172199 by | 07/11/18 1337 by | | | Other (Comment); 07/11/18; [...] | | | | | drive from [facility]); 08/11/18; | | | | | 1206 | | | +--------+ + + + | Incisi | 12/05/17; Right; adb- upper | 12/05/17 0000 by | 07/11/18 1355 by | | on | quadrant; 07/11/18; 1355 | Silvia Byrne RN | Patria Vasques RN | +--------+ + + + | Incisi | 12/05/17; 2126; Horacio Hewitt MD; | 12/05/172126 by | 07/11/181336 by | | on | Right; head; 07/11/18; 1336 | Kobe Chavez RN | Patria Vasques [...] Michael HUERTAS; | 05/08/18 0845 by | 05/09/18443 by | | al | Temp-probe Kennedy; 16 Fr.; 10 mL; | Gurvinder Rodriguez RN | Nataliya Hagen | | Cathet | 05/09/18; 443; Per order, Per | | ALEKSANDAR Mcintsoh | | er | protocol | | | +--------+ + + + | ETT | 05/08/18; 09 (created via | 05/08/18 09 by | [...] | Standard; Left; Radial; 20g; | | ALEKSANDRA Mcintosh | | | 05/09/18; 0014; Per [...] of this encounter Patient Instructions Patient Instructions Florecita Emery RN - 04/25/2018 10:16 AM PST PREOPERATIVE INSTRUCTIONS Do not eat or drink anything after midnight the night before surgery. TAKE the following medications with a sip of water on the morning of surgery: IPRATROPIUM-ALBUTEROL 0.5 MG-3 MG(2.5 MG BASE)/3 ML NEBULIZATION SOLN METOPROLOL SUCCINATE ER 50 MG TABLET,EXTENDED RELEASE 24 HR Do NOT take the following medications on the morning of surgery: ASPIRIN 81 MG TABLET,DELAYED RELEASE--Pt will interrupt aspirin for 7 days before the proce dure ATORVASTATIN 80 MG TABLET LISINOPRIL 5 MG TABLET NITROGLYCERIN 0.4 MG SUBLINGUAL TABLET SPIRONOLACTONE 25 MG TABLET Unless otherwise directed by your surgeon, do not take any Aspirin, vitamin E or non-indy roidal anti-inflammatory (NSAIDs i.e. Advil, Aleve, Ibuprofen) or herbal supplements seven d ays prior to your surgery. These drugs may interfere with normal blood clotting and may caus e excessive bleeding and bruising during or after the surgery. If you need a pain medication for general purposes, use Tylenol as directed. If you are in doubt about any medications that you are taking, please contact our office . Important Guidelines Do not shave the surgical area Do not smoke, drink alcohol or use recreational drugs for 24 hours before your surgery Do not eat any hard candy or chew gum after midnight the night before your surgery. Watch for any change in your health condition. Let your surgeon know right away if you do not feel well. Do not wear makeup, perfume, lotions or powder. Remove any nail ukrainian from at least one fingernail. Do not wear any jewelry to the hospital. Wear loose, comfortable clothing. Bring the case and solution for your contact lenses or wear your glasses. Leave all your valuables at home. Allow enough travel time so you re not late for your check in for surgery. Take a bath or shower and remember to shampoo your hair using your usual hair product be fore your arrival at the hospital. Please remember to brush your teeth the night before and the morning of your procedure. HIBICLENS GUIDE TO GENERAL SKIN CLEANSING AT HOME BEFORE SURGERY General Skin Cleansing Instructions: Hibiclens is not to be used on the head or face, keep out of the eyes, ears and mouth. Hibiclens is not to be used in the genital area. If this is the first time using Hibiclens, please perform an allergy test by placing 1-2 dr ops of soap on your forearm. Observe this area for 4-5 minutes. If you develop a rash, leandro coyle DO NOT use this product. Please inform the preop team on the morning of surgery so that th is product is NOT used during your surgery. *See Hibiclens label for full product information and precautions. When you bathe or shower the night before your surgery: If you plan to wash your hair, do so with your regular shampoo. Then rinse hair and body th oroughly to remove any shampoo residue. Wash your face with your regular soap or water only. Thoroughly rinse your body with warm water from neck down. Then use Hibiclens as you would any other liquid soap. Please do not put the Hibiclens on a wash cloth, apply directly to the skin and wash gently. Apply the minimum amount of Hibicl ens necessary to cover the skin. Leave the Hibiclens on your skin for 1 minute, then rinse o ff. Rinse thoroughly with warm water. Towel dry with a clean towel. Dress in clean sleepwear and sleep on freshly laundered sheets. When using Hibiclens for a second day in a row (morning of surgery, as soon as you wake up) : Shower/bathe again using Hibiclens in the same method as described above and wear freshly l aundered clothes. Do not apply any lotions, deodorants, powders or perfumes to the body areas that have been cleaned with Hibiclens. Surgery Check in Locations Admitting [facility] Surgery Check in Time: Someone from your surgeon's office or [facility] will provide you with information regarding your check in time. If you have any questions about this, pl ease contact your surgeon's office. Going Home Your surgical team will decide when you are medically ready to go home. If you are released to go home on the same day as your procedure/surgery please note the following: You will not be able to drive. You will be required to have a competent adult drive you or accompany you by taxi or pub lic transportation on the day of discharge. It is also required that you have a competent adult assist you and look after you on the first night after you have undergone regional blocks (72 hours for patients going home with regional block pump), deep sedation, and/or general anesthesia. If you stayed in the hospital after surgery, please arrange for your ride to come for yo u around 9AM on the day your doctor says you can go home. Check out time is 11AM. If you have questions or concerns after you go home, call your doctor s office. If it is after office hours, call the [facility] dipper operator at [phone] and ask them to page your doc tor. documented in this encounter Miscellaneous Notes Telephone Encounter - Florecita Emery RN - 04/25/2018 10:18 AM PSTPhone appointment compl eted as scheduled. Documentation to be found in the Notes and Trans Encounter tab in [employer]. documented in this e ncounter Plan of Treatment Not on filedocumented as of this encounter Visit Diagnoses Not on filedocumented in this encounter"
--- OUTSIDE RECORDS SUMMARY | ~2019-10-22 | XMS | Encounter Summary ---
Demographics + + + | Address | [address] | | | [place] [address] | + + + | Home Phone [...] Team Providers + +------+ + | Care Workers Compensation Coordinator Name | Role | Phone | [...] | | | | Loop [facility] | [place], [place] | | | | | [place], [facility] floor | [address] | | | | | [place], [place] | [phone] | | | | | [address] | | | | | | [phone] | | | +--------+ + + + [...]
--- OUTSIDE RECORDS SUMMARY | ~2019-10-22 | XMS | Encounter Summary ---
Demographics + + + | Address | [address] | | | [place] [address] | + + + | Home Phone [...] Providers + +------+ + | Care House Detective Name | Role | Phone | + [...] | | | | | | Rd [facility] | | | | | | Hospital Admitting | | | | | | Desk Located on the | | | | | | 9th floor | | | | | | [place], [place] | | | | | | [address] | | | +--------+ + + + [...]
--- OUTSIDE RECORDS SUMMARY | ~2019-10-22 | XMS | Encounter Summary ---
Demographics + + + | Address | [address] | | | [place] [address] | + + + | Home Phone [...] Team Providers + +------+ + | Care Jewel Bearing Broacher Name | Role | Phone | + [...] | Infectious | Saskia Nicolas MD | [facility] line | | 2018 | | [facility] at [facility] | [address] | | | | | [address] | [facility] | | | | | Loop Physician's | [place], [place] | | | | | [place], 3rd floor | [address] | | | | | [place], [place] | [phone] | | | | | [address] | | | | | | [phone] | | | +--------+ + + + [...]
--- OUTSIDE RECORDS SUMMARY | ~2019-10-22 | XMS | Encounter Summary ---
Demographics + + + | Address | [address] | | | [place] [address] | + + + | Home Phone [...] + + + | Author | [facility] | | | and [place] | + + + | Organization | [facility] | | | [...] Team Providers + +------+ + | Care Information Security Associate Name | Role | Phone | [...] | [address] | [address] | | | | | Procedures | [place] | [place], | | | | | [place] Nuclear | [place], [place] | [place] | | | | | Stress Test | [address] | [address] | | | | | (Vasodilator | Phone: | Phone: | | | | | ) CHG | [phone] | [phone] | | | | | MYOCARDIAL | Fax: | Fax: | | | | | SPECT | [phone] | [phone] | | | | | MULTIPLE | | | | | | | STUDIES [place] | | | | | | | CV STRS TST | | | | | | | XERS&/OR RX | | | | | | | CONT ECG W/O | | | | | | | I&R [place] | | | | | | | [...] + + | 07/29/ | Office | [facility] | Chana Luu, | Precordial pain | | 2017 | Visit | CARDIOLOGY [address] | MD [address] | (Primary Dx); | | | | [address] [place], | [place], [place] | Dyslipidemia; | | | | [place] [address] | [address] | Coronary artery | | | | [phone] | | disease involving | | | | | | [place] coronary | | | | | | artery of [place] | | | | | | heart [...] has an upcoming appointment to see a 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 [...] Nausea And Vomiting Codeine Nausea And Vomiting [place] Tar Hives Povidone Iodine Hives Sulfa Antibiotics [...] test Electronically signed by: Chana Luu MD [facility] 07/28/2016 Portions of this chart may have been created with [employer] voice recognition software. Occasi onal wrong-word or [...] | | | Lynsey Subramanian MD [facility] 08/06/2016, 12:18 | | + + + + + ----+ | Narrative | Performed At | + + ----+ | | [facility] | | NUCLEAR MEDICINE STRESS TEST REPORT Patient Name: Cielo Larson | [facility] | | Ray Study Date: 08/06/2016 Primary [...] mmHg. EKG baseline underlying sinus rhythm, anteroseptal CO, | | | age indeterminant. Peak unchanged. [...] [address] | [place] | [phone] | | [facility] | | [address] | | | - IMAGING | | | | + + + + + documented in this encounter Visit Diagnoses + + | Diagnosis | + + | Precordial pain - Primary | + + | Dyslipidemia Other and unspecified hyperlipidemia | + + | Coronary artery disease involving [place] coronary artery of [place] heart without | | angina pectoris | + + | Chronic obstructive pulmonary disease, unspecified COPD type (HCC) | + + documented in this encounter
--- OUTSIDE RECORDS SUMMARY | ~2019-10-22 | XMS | Encounter Summary ---
Demographics + + + | Address | [address] | | | [place] [address] | + + + | Home Phone | | + + + | Preferred Language | Unknown | + + + | Marital Status | | + + + | Buddhism Affiliation | MET | + + + [...] Team Providers + +------+ + | Care Tipple Repairer Name | Role | Phone | [...] | | initial | Ashutosh Melendez | [place], [place] | | | | | encounter | Rd | [address] | | | | | Procedures | [facility], [place] | Phone: | | | | | CONSULT TO | [address] | [phone] | | | | | ENT / | Phone: | Fax: | | | | | OTOLARYNGOLO | [phone] | [phone] | | | | | GY | Fax: | | | | | | | [phone] | | +--------+--------+ + + + + [...] + + | 12/03/ | Hospital | [facility] [address] | Manas Spear MD | | | 2018 - | Encounter | [address] | [address] | | | | | [id number] [facility] | [place], [place] | | | 12/09/ | | [facility] [address] | | | 2018 | | [place] [facility] | [phone] | | | | | [phone] | | | | | | | Magnolia Diego MD | | | | | | [address] | | | | | | [place], [place] | | | | | | [address] | | | | | | [phone] | | | | | | | [...] MD PCP: No Pcp Per PATIENT Service: [facility] Neurosurgery Diagnoses Principal Final Diagnosis: Right-sided wound [...] ENT offic e can be called at [phone] to schedule an appointment, if possible you [...] not wish to g o to a fci facility for ongoing IV antibiotic needs so outpatient infusion were arranged through [facility] in [place]. Patient is to go to the hospital [...] growing S. Aureus. Infusion being done at [facility] on DAPT for KS s/p stent. DAPT Can be resumed on [...] To: Home with outpatient IV abx through [facility] Does patient have a planned readmission: No Discharge Summary Completed?: Yes. 12/09/2017 Discharging Provider: Marni Manning PA-C Date Completed: 12/09/2017 Time Completed: 1:51 PM Discharging Attending: MD Marni Woods PA-C [address] [id number]/[place] [address] documented in t his encounter Medications at [...] management that inf usions set up at [facility]. Patient has had to BM's [...] is a 67 y.o. female CAD s/p KS, HTN, GERD, tobacco use and neurosur gical [...] patient. Marni Manning PA-C Neurological Surgery Pager [phone] Pager: [phone] obinsonVangie sa, PA-C - 12/07/2017 7:25 AM [...] is a 67 y.o. female CAD s/p KS, HTN, GERD, tobacco use and neurosur gical [...] cx. Marni Manning PA-C Neurological Surgery Pager [phone] Pager: [phone] Associated attestation - Casey Hewitt MD - [...] is a 67 y.o. female CAD s/p KS, HTN, GERD, tobacco use and neurosur gical [...] riccardo. Marni Manning PA-C Neurological Surgery Pager [phone] Pager: [phone] Bari Paulino MD - 12/05/2017 10:32 PM [...] Bari Cameron MD PGY-5 Neurological Surgery Pager [phone] signed by Bari Cameron MD at 12/05/2017 [...] is a 67 y.o. female CAD s/p KS, HTN, GERD, tobacco use and neurosur gical [...] washout and revision ELAINE Bee Neurological Surgery [facility] [address] [address] [address] Pager: [phone] Dillan Somers MD - 12/04/2017 5:05 PM [...] 7am Dillan Bridges MD Neurosurgery, PGY-1 Pager [phone] Dillan Somers MD - 12/04/2017 9:23 AM [...] is a 67 y.o. female CAD s/p KS, HTN, GERD, tobacco use and neurosur gical [...] tonight 10.14 for OR tomorrow Please page [phone] with any questions or concerns. Dillan Bridges MD Neurosurgery, PGY-1 Pager [phone] Associated attestation - Casey Hewitt MD - [...] MD PCP: Remington Leroy Md, MD HPI: iCelo Bell is a 67 y.o. female with CAD s/p KS, HTN, GERD, tobacco use, a nd a [...] before her family br ought her to [place] for evaluation. There, a head CT was notable for an epidural air an d fluid collection consistent with abscess, for which she was transferred to [facility] for neuros urgical management. On arrival here she now denies headache, as well as fever/chills, nausea/vomiting, or focal neurologic concerns including weakness, numbness, or tingling. Her head has been wrapped wi th clean gauze and is no longer actively draining. She does endorse a history of ASA 81 give n her prior KS, with her last dose being this morning. 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 12/27/2014; status post stent placement in the mid LAD Chronic pain Continuous tobacco abuse COPD on oxygen at night CVA (cerebral vascular accident) ([facility]) 2007 Essential hypertension GERD (gastroesophageal reflux disease) Goiter MRSA (methicillin resistant staph aureus) culture positive post cariotomy for SAH Otitis media recent abx preadmit Subarachnoid hemorrhage due to ruptured aneurysm ([facility]) 2007 Tobacco dependence PSH: Past Surgical History Procedure Date Partial thyroidectomy Hysterectomy Cholecystecomy Bladder suspension 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 Transformer Molder shunt Tympanoplasty 1987 Lumpectomy of left breast [...] Tommie Zarco MD Allergies: Allergies Allergen Reactions Geneva Tar Hives Betadine [Povidone-Iodine (With Soap)] Unknown [...] is a 67 y.o. female CAD s/p KS, HTN, GERD, tobacco use and neurosur gical [...] Please contact the Neurosurgery resident on-call pager [phone] with questions or concerns. Vickie Estrada M.D., M.P.H. R2 Resident Physician Neurological Surgery Pager: [phone] signed by Magnolia Diego MD at 12/20/2017 [...] pause veri fies correct patient, procedure, equipment, pit crew support worker and site/side marked as required. CLABSI Prevention [...] area Basilic vein. Cat heter lot number: [id number] with a length of 55 cm was [...] Stevie olson: 12/05/2017 Attending Surgeon:Casey Hewitt MD Air Intercept Controller(s):Bari Cameron MD. Preoperative Diagnosis: Right-sided wound dehiscence [...] ep idural pus-looking collection. MD CASSANDRA Capps/NGUYEN /[id number] signed by Casey Hewitt MD at 12/07/2017 [...] was positioned appropriately. The following sales team member s were present during the team pause: Neurosurgery, Anesthesiology, [place] nursing staff. Surgeon: Casey Hewitt MD Air Intercept Controller: Bari Cameron MD Pre-op Diagnosis: Cranioplasty infection [...] Bari Cameron MD PGY-5 Neurological Surgery Pager [phone] Associated attestation - Casey Hewitt MD - 12/05/2017 10:44 PM PDTI was present and scrub bed during the entire procedure. Herminia Cappsocumented in this encounter Consult Notes Tika Mejia MD - 12/09/2017 12:25 PM PDT [facility] Infectious Diseases OPAT Referral for Discharge Planning Team A: OPAT ALEKSANDAR Rowan, Office: [phone], Pager: [phone] ID Diagnosis: Cranial osteomyelitis, s/p removal of [...] Access: Ok to place PICC Follow Up: [facility] ID faculty with preference to schedule with Dr. Mejia, Any available f gilbert or next available OPAT provider in 3 weeks post hospital discharge. Same day appointment coordination with: Neurosurgery if possible Imaging prior to ID follow up: none ID: Please route your note to the "p OPAT/infectious Diseases Clinic" pool Intensivist: For all patients requiring IV antibiotic therapy, please route your OPAT Bj n of Care Note (.CMOPAT) to [facility] "p OPAT/Infectious Diseases clinic" Pool at discharge. [...] Plan: 67 y/o F with CAD s/p KS, HTN, SAH s/p right pterional craniotomy for clipping (09/2007) c/b hydrocephalus treated by a right frontal VPS (03/2008) and synthetic cranioplasty for eroded hardwarein 10/2015. Presented with a week of increasing headache and purulent drainage fro m the cranioplasty site with wound dehiscence, and on 12/06/17 underwent removal of craniopl asty and SKIN WASHER shunt as well as washout. All hardware [...] primary team. This patient was staffed [facility] Dr. Mariscal, who agrees with the above assessment and plan unless otherwise documented. Maite Stevens M4 Pager [phone] signed by Xavier Mariscal MD at 12/08/2017 [...] Plan: 67 y/o F with CAD s/p KS, HTN, SAH s/p right pterional craniotomy for clipping (09/2007) c/b hydrocephalus treated by a right frontal VPS (03/2008) and synthetic cranioplasty for eroded hardware in 10/2015. Presented with a week of increasing headache and purulent drainage from the cranioplasty site with wound dehiscence, and on 12/06/17 underwent removal of craniopla sty and SKIN WASHER shunt as well as washout. All hardware [...] primary team. This patient was staffed [facility] Dr. Mariscal, who agrees with the above assessment and plan unless otherwise documented. Tika Mejia MD Infectious Disease Fellow Pager: [phone] signed by Xavier Mariscal MD at 12/07/2017 [...] to fourth dose. Please page clinical pharmacist [phone]) or call central inpatient pharmacy ([phone]) with qu estions. Actual body weight: Weight: 49.4 kg (109 lb) (12/03/17 3872) Labs: CREATININE PLASMA (LAB) (mg/dL) Date Value 12/05/2017 0.74 12/03/2017 0.63 BUN, PLASMA (LAB) (mg/dL) Date Value 12/05/2017 12 12/03/2017 12 WHITE CELL COUNT (K/cu mm) Date Value 12/07/2017 13.50 (H) 12/05/2017 10.28 12/03/2017 12.22 (H) VANCOMYCIN, TROUGH (ug/mL) Date/Time Value 12/07/2017 1114 11.9 Pertinent cultures/sensitivities: Tissue/Abscess from Head: Staphylococcus aureus. Thank you for the consult, Edmund Herr PharmD Clinical Pharmacist Pager: [phone] Marianna Tirado M D - 12/06/2017 4:03 [...] Marianna Chandler MD INFECTIOUS DISEASES AT [facility] 3RD FLOOR [address] [place] [address] Mailcode: L[address] [place] [phone] Fax [phone] signed by Marianna Chandler MD at 12/09/2017 [...] dose (1030 12/07). Please page clinical pharmacist [phone]) or call central inpatient pharmacy ([phone]) with qu estions. Actual body weight: Weight: 49.4 kg (109 lb) (12/03/17 7682) Labs: CREATININE PLASMA (LAB) (mg/dL) Date Value 12/05/2017 0.74 12/03/2017 0.63 BUN, PLASMA (LAB) (mg/dL) Date Value 12/05/2017 12 12/03/2017 12 WHITE CELL COUNT (K/cu mm) Date Value 12/05/2017 10.28 12/03/2017 12.22 (H) Pertinent cultures/sensitivities: Tissue and abscess from head: Few GPCs Catheter Tip from head: NGTD Thank you for the consult, Edmund Herr PharmD Clinical Pharmacist Pager: [phone] oMaite vasquez 9:27 AM PDTAssociated Order(s): IP [...] a 67 y.o. female with CAD s/p KS, HTN, SAH s/p right pterional craniotomy for [...] vision at this time. She presented to [facility] where a head CT showed epidural air and fluid collection consistent with abscess. Wound was swabbed in the ED and showed growth of MSSA (12/05). She was then transferred to [facility] for neurosurgi eagle management. 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/p NSTEMI 12/27/2014; status post stent placement in the mid LAD Chronic pain Continuous tobacco abuse COPD on oxygen at night CVA (cerebral vascular accident) ([facility]) 2007 Essential hypertension GERD (gastroesophageal reflux disease) Goiter MRSA (methicillin resistant staph aureus) culture positive post cariotomy for SAH Otitis media recent abx preadmit Subarachnoid hemorrhage due to ruptured aneurysm ([facility]) 2007 Tobacco dependence Past Surgical History: Procedure Laterality Date BLADDER SUSPENSION cholecystecomy CORONARY STENT PLACEMENT 12/28/2014 status post stent placement in the mid LAD HYSTERECTOMY LUMPECTOMY OF LEFT BREAST 1979 PARTIAL THYROIDECTOMY Right REPAIR OF ANEURYSM BY CLIPPING TYMPANOPLASTY Right 1987 SKIN WASHER SHUNT Prior Medications: Prescriptions Prior to Admission [...] mg intravenous Q12H Allergies Allergies Allergen Reactions Geneva Tar Hives Betadine [Povidone-Iodine (With Soap)] Unknown [...] Stain...........: Gram smear performed at [facility]. Culture: Final Report: No growth after 3 days. Final Report 04/29/2008 CSF Culture Source...............: Cerebrospinal Fluid RLB Gram Stain...........: Gram smear performed at [facility]. Culture: Rare Methicillin resistant Staphylococcus aureus Final ID MRSA Cefazolin R Clindamycin S Erythromycin R Oxacillin R Penicillin R Tetracycline S Trimeth/Sulfa S Vancomycin S Final Report 03/07/2008 CSF Culture Source...............: Cerebrospinal Fluid RLB Gram Stain...........: Gram smear performed at [facility]. Culture: Final Report: No growth after 3 days. Final Report 03/03/2008 CSF Culture Source...............: Cerebrospinal Fluid RLB Gram Stain...........: Gram smear performed at [facility]. Culture: Final Report: No growth after 3 days. Final Report 03/03/2008 Wound Culture Source...............: Skin Abscess RLB Gram Stain...........: Rare Squamous epithelial cells Rare PMN's Rare Gram positive cocci Culture: 1+ Methicillin resistant Staphylococcus aureus Final ID MRSA Cefazolin R Clindamycin S Erythromycin R Oxacillin R Penicillin R Tetracycline S Trimeth/Sulfa S Vancomycin S Final Report Resulted: 03/05/08 RLB ([facility]) [facility] [place] [address] [place] [address] 03/03/2008 Urine Culture Source...............: Clean catch Culture: Final Report: No growth (< 1,000 col/ml) after 24 hours Final Report Resulted: 03/05/08 RLB ([facility]) [facility] [place] [address] [place] [address] 10/28/2007 CSF Culture Source...............: Cerebrospinal Fluid RLB Gram Stain...........: Gram smear performed at [facility]. Culture: Final Report: No growth after 3 days. Final Report CULTURE RESULT (no units) Date Value 12/03/2017 No growth to date. Imaging: CT head 12/06: Interval postsurgical changes of right frontal cranioplasty and SKIN WASHER shunt rem oval without acute intracranial abnormality. Fluid and gas collection in the cranioplasty be d is unchanged. Problem List: Active Problems: Draining postoperative wound Assessment and Plan: Cielo Bell is a 67 y.o. female with CAD s/p KS, HTN, SAH s/p right pterional c raniotomy [...] initial cultur es from wound swab in [place] show MSSA, an infection of this duration [...] primary team. This patient was staffed [facility] Dr. Chandler, who agrees with the above assessment and plan unless otherwise documented. Thank you for the consult. We will follow along with you. Maite Stevens, 12/06/17 , 9:29 AM M4 Pager [phone] signed by Marianna Chandler MD at 12/09/2017 [...] Marianna Chandler MD INFECTIOUS DISEASES AT [facility] 3RD FLOOR [facility] Mailcode: [address] [place] [phone] Fax - [phone] documented in this encounter Miscellaneous Notes Handoff - Jemima Holloway RN - 12/09/2017 10:40 AM PDTNursing Handoff Patient Daily Goal: Bowel Movement and progress to discharge (12/09/17 7522) Patient Specific Preferences: wants coffee SAIDA if not having surgery (12/04/17 0832) [facility] IP NURSE HANDOFF: Nesbitt hospital course events: Cielo Dooleyaneziggy Nurard is a 67 y.o. fem eugenie here for removal of infected crainioplasty and washout. 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 Patient was admitted to [facility] on evening of 12/05. SAFETY Patient/Family [...] SAIDA if not having surgery (12/04/17 0832) [facility] IP NURSE HANDOFF: Nesbitt hospital course events: Cielo Bell is a 67 y.o. fem eugenie here for removal of infected crainioplasty and washout. 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 Patient was admitted to [facility] on evening of 12/05. SAFETY Patient/Family [...] SAIDA if not having surgery (12/04/17 0832) [facility] IP NURSE HANDOFF: Nesbitt hospital course events: Cielo Bell is a 67 y.o. fem eugenie here for removal of infected crainioplasty and washout. 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 Patient was admitted to [facility] on evening of 12/05. SAFETY Patient/Family [...] SAIDA if not having surgery (12/04/17 0832) [facility] IP NURSE HANDOFF: Nesbitt hospital course events: Cielo Bell is a 67 y.o. fem eugenie here for removal of infected crainioplasty and washout. 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 Patient was admitted to [facility] on evening of 12/05. SAFETY Patient/Family [...] SAIDA if not having surgery (12/04/17 0832) [facility] IP NURSE HANDOFF: Nesbitt hospital course events: Cielo Bell is a 67 y.o. fem eugenie here for removal of infected crainioplasty and washout. 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 Patient was admitted to [facility] on evening of 12/05. SAFETY Patient/Family [...] SAIDA if not having surgery (12/04/17 0832) [facility] IP NURSE HANDOFF: Nesbitt hospital course events: Cielo Bell is a 67 y.o. fem eugenie here for removal of infected crainioplasty and washout. 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 Patient was admitted to [facility] on evening of 12/05. SAFETY Patient/Family [...] -Treat symptoms prn Following. Hallie Duncan RD, [employer], [place] #60051 Comments: Cielo Bell is a 67 y.o. [...] SAIDA if not having surgery (12/04/17 0832) [facility] IP NURSE HANDOFF: Nesbitt hospital course events: Cielo Bell is a 67 y.o. fem eugenie here for removal of infected crainioplasty and washout. 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 Patient was admitted to [facility] on evening of 12/05. SAFETY Patient/Family [...] SAIDA if not having surgery (12/04/17 0832) [facility] IP NURSE HANDOFF: Nesbitt hospital course events: Cielo Bell is a 67 y.o. fem eugenie here for removal of infected crainioplasty and washout. 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 Patient was admitted to [facility] on evening of 12/05. SAFETY Patient/Family [...] in amb ulance on a stretcher from [place]. She stated she asked attendant to put [...] SAIDA if not having surgery (12/04/17 0832) [facility] IP NURSE HANDOFF: Nesbitt hospital course events: Per previous RN handoff: 67 y.o. female with CAD s/p KS, HTN, GERD, tobacco use, and a long [...] all of her own ADLs at [facility]. 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 artery s/p NSTEMI 12/27/2014; status post stent placement in the mid LAD Chronic pain Continuous tobacco abuse COPD on oxygen at night CVA (cerebral vascular accident) ([facility]) 2007 Essential hypertension GERD (gastroesophageal reflux disease) Goiter MRSA (methicillin resistant staph aureus) culture positive post cariotomy for SAH Otitis media recent abx preadmit Subarachnoid hemorrhage due to ruptured aneurysm ([facility]) 2007 Tobacco dependence Past Surgical History Procedure Laterality Date Partial thyroidectomy Right Hysterectomy Cholecystecomy Bladder suspension 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 Transformer Molder shunt Tympanoplasty Right 1987 Lumpectomy of left breast 1978 Coronary stent placement 12/28/2014 status post stent placement in the mid LAD * No Diagnosis Codes entered * Surgical Procedure Planned - Actual Procedure Performed: Procedure(s) with comments: CRANIAL WOUND WASHOUT - explant of cranioplasty; wound washout REMOVAL OF VENTRIULO-PERITONEAL SHUNT - possible removal of SKIN WASHER shunt Anesthesia: General & Local Length of procedure: In Room/Out of Room: 1 Hr 35 Min 54 Sec Surgeon(s) and Role: * Casey Hewitt MD - Primary OR positioning comments: supine Neuro: POSS Sedation Level: Sleep, Easy to Arouse Last pain medication given: Pain medication totals: see MAR Additional pain medication information: none Functional Epidural: N/A CITRIX ENGINEER: N/A Respiratory: RR: 16, O2 Sat: 93 %, O2 Delivery: Oxymask Breath Sounds: WDL Except DARIEN: LLL: RUL: RLL: MELISSA No Comment: none Cardiac: BP: 107/53 HR: 88 GI: Nausea/Vomiting Status: No Signs/Symptoms: Interventions: Assessment: Comments: none : Last void: 1949 Contact Name: Eric () or Juan (ASHUTOSH) Contact Number: [phone] Family contacted: Yes Comment:update to brother Eric at time of transfer Belongings:upper dentures returned to Cielo, no other belongings in PACUNursing Handoff Patient Daily Goal: go to OR (12/05/171948) Patient Specific Preferences: wants coffee SAIDA if not having surgery (12/04/17 7132) [facility] IP NURSE HANDOFF: Nesbitt hospital course events: Cielo Bell is a 67 y.o. fem eugenie here for removal of infected crainioplasty and washout. 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 Patient was admitted to [facility] on evening of 12/05. 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 dehe artery s/p NSTEMI 12/27/2014; status post stent placement in the mid LAD Chronic pain Continuous tobacco abuse COPD on oxygen at night CVA (cerebral vascular accident) ([facility]) 2007 Essential hypertension GERD (gastroesophageal reflux disease) Goiter MRSA (methicillin resistant staph aureus) culture positive post cariotomy for SAH Otitis media recent abx preadmit Subarachnoid hemorrhage due to ruptured aneurysm ([facility]) 2007 Tobacco dependence Past Surgical History Procedure Laterality Date Partial thyroidectomy Right Hysterectomy Cholecystecomy Bladder suspension 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 Transformer Molder shunt Tympanoplasty Right 1987 Lumpectomy of left breast 1979 Coronary stent placement 12/28/2014 status post stent placement in the mid LAD * No Diagnosis Codes entered * Surgical Procedure Planned - Actual Procedure Performed: Procedure(s) with comments: CRANIAL WOUND WASHOUT - explant of cranioplasty; wound washout REMOVAL OF VENTRIULO-PERITONEAL SHUNT - possible removal of SKIN WASHER shunt Anesthesia: General & Local Length of procedure: In Room/Out of Room: 1 Hr 35 Min 54 Sec Surgeon(s) and Role: * Casey Hewitt MD - Primary OR positioning comments: supine Neuro: POSS Sedation Level: Frequently Drowsy, Arousable, Drifts Off to Sleep during Conve rsation Last pain medication given: Pain medication totals: see MAR Additional pain medication information: none Functional Epidural: N/A CITRIX ENGINEER: N/A Respiratory: RR: (!) 25, O2 Sat: 91 %, O2 Delivery: Nasal cannula Breath Sounds: WDL Except DARIEN: LLL: RUL: RLL: MELISSA No Comment: none Cardiac: BP: 143/80 HR: 90 GI: Nausea/Vomiting Status: No Signs/Symptoms: Interventions: Assessment: Comments: none : Last void: 1948 Contact Name: Eric (brother) or Juan (ASHUTOSH) Contact Number: [phone] Family contacted: Yes Comment:update to brother Eric at time of transfer Belongings:upper dentures returned to Cielo, no other belongings in PACUElectronically sig gem by Silvia Byrne RN at 12/05/2017 11:15 PM PDTHandoff - Diana Pollock RN - 12/06/19 5:42 PM PDTNursing Handoff Patient Daily Goal: Have surgery (12/05/17 0820) Patient Specific Preferences: wants coffee SAIDA if not having surgery (12/04/17 0832) [facility] IP NURSE HANDOFF: Nesbitt hospital course events: Per previous RN handoff: 67 y.o. female with CAD s/p KS, HTN, GERD, tobacco use, and a long [...] Progress to Target: Improving As evidenced by: --STRAIGHTEDGE WORKER completed shower, LAILA and linen change at [...] coffee SAIDA if not having surgery (12/04/17831) [facility] IP NURSE HANDOFF: Nesbitt hospital course events: Per previous RN handoff: 67 y.o. female with CAD s/p KS, HTN, GERD, tobacco use, and a long [...] all of her own ADLs at [facility]. SAFETY Patient/Family Target: Cielo will [...] coffee SAIDA if not having surgery (12/04/17831) [facility] IP NURSE HANDOFF: Nesbitt hospital course events: Per previous RN handoff: 67 y.o. female with CAD s/p KS, HTN, GERD, tobacco use, and a long [...] all of her own ADLs at h [facility]. SAFETY Patient/Family Target: Cielo will [...] coffee SAIDA if not having surgery (12/04/17831) [facility] IP NURSE HANDOFF: Nesbitt hospital course events: Per previous RN handoff: 67 y.o. female with CAD s/p KS, HTN, GERD, tobacco use, and a long [...] manages all of her own ADLs at [facility]. NURSING ASSESSMENT & RECOMMENDATIONS FORWARD Nursing [...] a plan for fix head (12/03/17 2200) [facility] IP NURSE HANDOFF: Nesbitt hospital course events: 67 y.o. female with CAD s/p KS, HTN, EULALIA D, tobacco use, and a [...] At | + + + | EXAM: IN ABDOMEN 1 VIEW History: Concern for SBO, [...] Interface - 12/09/2017 4:22 PM PDT EXAM: IN ABDOMEN | | 1 VIEW History: Concern [...] [facility] | [address] | [place] [address] | | | SERVICES, CORE | PARK [...] + + + + + | [facility] | [address] | [place] [address] | | | SERVICES, CORE | [address] | | | + + + + + X-RAY PORTABLE CHEST PICC LINE CHECK (12/07/2017 1:17 PM PDT) + + | Specimen | + + | | + + + + + | Narrative | Performed At | + + + | EXAM: IN CHEST PICC LINE CHECK HISTORY: new picc placement, pt | [facility] | | ready COMPARISON: 04/29/2008 FINDINGS: Right upper | RADIOLOGY VOICE | | extremity PICC tip is in the region of the cavoatrial junction. SKIN WASHER | RECOGNITION 2 | | shunt projects [...] Note | + + | Service Account, AppUpper - ASO Res In Interface - 12/07/2017 1:25 PM PDT EXAM: IN CHEST | | PICC LINE CHECK HISTORY: new picc placement, pt ready COMPARISON: 04/29/2008 FINDINGS: | | Right upper extremity PICC tip is in the region of the cavoatrial junction. 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 Catheter lot number: [id number] with a length of 55 | | [...] | | | LABORATORY | | | LUXEMBOURGER | | | SERVICES, | | | [...] give dose after drawing trough. Questions, page #[phone]. | LABORATORY | | Thank you. GFR [...] [facility] | [address] | [place] [address] | | | SERVICES, CORE | PARK [...] give dose after drawing trough. Questions, page #[phone]. | LABORATORY | | Thank you. | SERVICES, CORE | + + + + + + + + | Performing | Address | City/State/Zipcode | Phone Number | | Organization | | | | + + + + + | [facility] | [address] | [place] [address] | | | SERVICES, RYAN | [address] [...] + | [facility] | [address] | [place] [address] | | | RYAN ORNELAS | [address] | | | + + + + + OPERATION RECORD (12/06/2017 2:12 AM PDT) + + | Procedure Note | + + | Casey Hewitt MD - 12/06/2017 2:12 AM PDT Date of Service: 12/05/2017 Attending | | Surgeon:Casey Hewitt MD Air Intercept Controller(s):Bari Cameron MD. | | Preoperative Diagnosis: Right-sided [...] 12/06/2017 00:30:33DT: 12/06/2017 | | 02:12:59Job #: [id number] | + + CT HEAD WO CONTRAST [...] | | | right frontal cranioplasty and SKIN WASHER shunt removal without acute | | | [...] postsurgical changes of right frontal cranioplasty and SKIN WASHER shunt removal without | | acute intracranial [...] postsurgical changes of right frontal cranioplasty and SKIN WASHER shunt removal without ac cameron intracranial abnormality. [...] [facility] | [address] | [place], [place] | | | [facility] | [facility] | [address] | | | TESTS | | | [...] Surgeon: | | | Casey Hewitt MD Air Intercept Controller: Bari Cameron MD Pre-op | | | [...] PGY-5 | | | Neurological Surgery Pager [phone] | | + + + CULTURE, TISSUE [...] + | [facility] | [address] | [place] [address] | | | [place] | | | | + + + [...] + | [facility] | [address] | [place] [address] | | | [place] | | | [...] 1+ Staphylococcus aureus Refer to culture | [facility] - | | collected 12/05/17 at 2137 for susceptibilities No anaerobic | [facility] - | | organisms isolated Gram Stain: Few squamous epithelial cells | [place] | | Moderate polymorphonuclear cells Few Gram positive cocci | | + + + + + + + + | Performing | Address | City/State/Zipcode | Phone Number | | Organization | | | | + + + + + | [facility] - | [address] | [place] [address] | | | [place] | | | | + + + [...] | + + + + + | [facility] | [address] | [place] [address] | | | [place] | | | [...] [facility] | [address] | [place], [place] | | | [facility] | [address] | [address] | | | TESTS | | | [...] [facility] | [address] | [place] [address] | | | SERVICES, | [address] [...] + + + + + | [facility] | [address] [facility] | [place] [address] | | | SERVICES, | [address] [...] | | | LABORATORY | | | LUXEMBOURGER | | | SERVICES, | | | [...] + + + + + | [facility] | [address] | [place] [address] | | | SERVICES, CORE | PARK [...] + + + + | [facility] | [address] [facility] | [place] [address] | | | RYAN ORNELAS | P[address] [...] | + + + + + | [facility] | [address] | [place] [address] | | | SERVICES, CORE | [address] [...] DEPT OF | [address] | [place], [place] | | | CARDIOLOGY | [address] | [address] | | + + + + + [...] + + + + + | [facility] | [address] | [place] [address] | | | SERVICES, CORE | NOR[address] [...] | [facility] | [address] [facility] | [place] [address] | | | SERVICES, RYAN | [address] [...] [facility] | [address] | [place] [address] | | | SERVICES, CORE | PARK [...] [facility] | [address] | [place] [address] | | | RYAN ORNELAS | [address] [...] [facility] | [address] | [place] [address] | | | RYAN ORNELAS | [address] [...] [facility] | [address] | [place] [address] | | | SERVICESRYAN | [address] [...] | | | LABORATORY | | | LUXEMBOURGER | | | SERVICES, | | | [...] + + + + + | [facility] | [address] | [place] [address] | | | SERVICES, RYAN | [address] [...] | Auricula | | First dose on [facility] 12/08/17 at | | | | [...] | | | | | modification) on [facility] 12/08/17 at | | | | [...]
--- OUTSIDE RECORDS SUMMARY | ~2019-10-22 | XMS | Encounter Summary ---
Demographics + + + | Address | [address] | | | [place] [address] | + + + | Home Phone [...] Providers + +------+ + | Care Head Gauge Unit Operator Name | Role | Phone | [...] | | | | | [facility] | [place], [place] | | | | | [facility], | [address] | | | | | Building | [phone] | | | | | floor [place], [place] | | | | | | [address] | | | | | | [phone] | | | +--------+ + + + [...] please advise patient to reach out to [facility] which is an [facility] team apart of the infec tious disease department who is helping to manage her outpatient IV antibiotics. This team m ay be able to help set up infusions while she is here in town during her scheduled follow up s. Gave OPAT number to patient to call ([phone]). Patient greatly appreciated the call an d will give OPAT a call in the morning. Electronically signed by Valente Gerardo MA at 018 4:53 PM PDTTelephone Encounter - Marni Manning PA-C - 12/20/2017 12:27 PM PDTCan you please advise patient to reach out to [facility] which is an [facility] team apart of the infectiou s [...] can have the injection done here at [facility] instead of in [facility]. She has several appts at [facility] on 12/23 and won't be able to go to the [facility] oni t day. Please advise. Looking at the chart it I believe the patient gets an infusion through a PIC line, not an i njection. elephone Encounter - Perico Hall - 12/20/2017 8:14 AM Renita Maricarmen Bell is s/p CRANIOP LASTY WITH CUSTOM IMPLANT - Right 10/23/2015 Is on an IV everyday at the hospital in [facility] and has questions about her injections for when she sees Cecile. Routing encounter to nursing team to be evaluated and triage Please advise. Date Patient Last Seen: Last Appointment in [facility] was on 11/28/15 at 3:42 pm with Nsg Fellow. Future Appointment Date in Clinic: Next Appointment in [facility] is on 12/23/17 at 12:15 pm with Nsg Skull Base Pa STEFAN Gaines documented in this encoun ter Plan of Treatment Not on filedocumented as of this encounter Visit Diagnoses Not on filedocumented in this encounter"
--- OUTSIDE RECORDS SUMMARY | ~2019-10-22 | XMS | Encounter Summary ---
Demographics + + + | Address | [address] | | | [place] [address] | + + + | Home Phone | | + + + | Preferred Language | Unknown | + + + | Marital Status | | + + + | Confucianist Affiliation | Unknown | + + + | Race | White | + + + | Ethnic Group | Not or | + + + Author + + + | Author | [facility] | | | and [place] | + + + | Organization | [facility] | | [...] Providers + +------+ + | Care Home Performance Consultant Name | Role | Phone | [...] + | 02/24/ | Telephone | [facility] | Chana Luu, | Appointment | | 2015 | | CARDIOLOGY [address] | MD [address] | | | | | [place], | [place] | | | | | [place] [address] | [address] | | | | | [phone] | | | +--------+ + + + [...]
--- OUTSIDE RECORDS SUMMARY | ~2019-10-22 | XMS | Encounter Summary ---
Demographics + + + | Address | [address] | | | [place] [address] | + + + | Home Phone | | + + + | Preferred Language | Unknown | + + + | Marital Status | | + + + | Hinduism Affiliation | Unknown | + + + | Race | White | + + + | Ethnic Group | Not or | + + + Author + + + | Author | [facility] | | | and [place] | + + + | Organization | [facility] | | | [...] Team Providers + +------+ + | Care Linemarker Name | Role | Phone | + [...] | about plavix) | | | | [place], | [place] | | | | | [place] [address] | [address] | | | | | [phone] | | | +--------+ + + + [...]
--- OUTSIDE RECORDS SUMMARY | ~2019-10-22 | XMS | Encounter Summary ---
Demographics + + + | Address | [address] | | | [place] [address] | + + + | Home Phone [...] Team Providers + +------+ + | Care Marriage And Family Teacher Name | Role | Phone | [...] Provider Unknown | | | | | [place], [place] | [phone] | | | | | [address] | | | | | | [phone] | | | +--------+ + + + [...]
--- OUTSIDE RECORDS SUMMARY | ~2019-10-22 | XMS | Encounter Summary ---
Demographics + + + | Address | [address] | | | [place] [address] | + + + | Home Phone [...] Team Providers + +------+ + | Care Financial Services Assistant Name | Role | Phone | [...] | | | [facility] | [place], [place] | s/p cranial wound | | | | [facility] and Healing, | [address] | washout (dos: | | | | | [phone] | 12/05/17)) | | | | floor [place], [place] | | | | | | [address] | | | | | | [phone] | | | +--------+ + + + [...] limited to afte r hours/weekend resident call ([phone]), clinic phone & office hours ([phone]) and PCP or subspeciality of non-NSG related concerns. documented in this encounter Plan of Treatment Not on filedocumented as of this encounter Visit Diagnoses Not on filedocumented in this encounter"
--- OUTSIDE RECORDS SUMMARY | ~2019-10-22 | XMS | Encounter Summary ---
Demographics + + + | Address | [address] | | | [place] [address] | + + + | Home Phone [...] Team Providers + +------+ + | Care Correctional Supply Supervisor Name | Role | Phone | + +------+ + | Remington Camacho MD | PCP | | + +------+ + Reason for Visit +---------+ + | Reason | Comments | +---------+ + | Post Op | | +---------+ + Encounter Details +--------+---------+ + + + | Date | Type | Department | Care Team | Description | +--------+---------+ + + + | 11/27/ | Office | Neurosurgery at | | Acquired skull | | 2016 | Visit | [facility] [address] | | defect (Primary Dx) | | | | [facility] | | | | | | [facility] and [facility]aling, | | | | | | Building | | | | | | floor [place], [place] | | | | | | [address] | | | | | | [phone] | | | +--------+---------+ + + + [...] + + + | Blood Pressure | 121/62 | 11/28/2015 1:59 PM | | | | | PDT | | + + + + + | Pulse | 93 | 11/28/2015 1:59 PM | | | | | PDT | | + + + + + | Temperature | 36.9 C (98.4 F) | 11/28/2015 1:59 PM | | | | | PDT [...] + + + + | Weight | 52.5 kg (115 lb 12.8 | 11/28/2015 1:59 PM | | | | oz) | PDT | | + + + + + | Height | 149.9 cm (4' 11") | 11/28/2015 1:59 PM | | | | | PDT | | + + + + + | Body Mass Index | 23.39 | 11/28/2015 1:59 PM | | | | | PDT | | + + + + + documented in this encounter Progress Notes Dameon Scanlon, - 11/28/2015 2:57 PM PDT Skull Base/Cerebrovascular Clinic Note Clinical Course: "Cielo Bell is a 65-year-old female with a history of ruptured anterior communicating a rtery aneurysm, status post right pterional clipping, along with post-hemorrhagic hydrocepha elder, status post right ventriculoperitoneal shunt in 2007 and 2008 respectively. She returne d to our clinic recently for followup. At our last clinic appointment in December 2014, she had a right frontal screw protrusion. Unfortunately, just shortly before that appointment she suffered an CT and was placed on asp irin and Plavix and was not cleared for surgery. However, since we last saw her, the skin ov er that screw has regrown but the screw has actually migrated posteriorly about 1 cm. She al so has a significant cranial defect over her previous craniotomy site. As such, she was blayne cated for the above procedure. The patient was well apprised of all potential risks, benefit s, and complications of the procedure. The patient voiced understanding. A signed consent fo rm was placed in the patient's chart." S/p Right synthetic cranioplasty. 10/23/2015 Subjective: Doing well no changes, wound healing well with no drainage, no new neurologica l symptoms reported, happy after cranioplasty Objective: Filed Vitals 10/03/2015 12:50 PM 10/03/2015 2:10 PM 10/25/2015 8:28 AM 11/28/2015 2:01 PM Height: 1.499 m (4' 11") 1.499 m (4' 11") 1.499 m (4' 11.02") 1.499 m (4' 11") Weight: 51.846 kg (114 lb 4.8 oz) 51.71 kg (114 lb) 56.3 kg (124 lb 1.9 oz) 52.527 kg (115 lb 12.8 oz) BP: 121/70 109/75 121/62 Pulse: 79 93 93 Temp: 36.5 C (97.7 F) 37.4 C (99.3 F) 36.9 C (98.4 F) TempSrc: Forehead Resp: 14 20 SpO2: 95% 86% PainSc: 0 - Zero 0 - Zero 0 - Zero BMI: 23.38 kg/(m^2) AAOx4, PERRL, EOMI, CN 2-12 intact Following Commands, Speech Clear Moving all extremities symmetrically in all muscle groups tested Incision c/d/i Assessment: 1. Cielo Bell is a 65-year-old female with a history of ruptured anterior communicatin g artery aneurysm, status post right pterional clipping, along with post-hemorrhagic hydroce phalus, status post right ventriculoperitoneal shunt in 2007 and 2008 respectively. 2. S/p Right synthetic cranioplasty. 10/23/2015 3. GCS 15, no neurological changes Plan: -stitches removed -Follow up with primary care physician for medical management -Follow up with neurosurgery in as needed -Contact neurosurgery with any questions/concerns/changes in neurological exam -Appreciate the opportunity to be involved in patients care Dameon Scanlon DO Skull Base Fellow Department of Neurosurgery [facility] documented in this enc ounter Plan of Treatment Not on filedocumented as of this encounter Visit Diagnoses + + | Diagnosis | + + | 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
--- OUTSIDE RECORDS SUMMARY | ~2019-10-22 | XMS | Encounter Summary ---
Demographics + + + | Address | [address] | | | [place] [address] | + + + | Home Phone [...] Team Providers + +------+ + | Care Metallurgical Specialist Name | Role | Phone | [...] | Stay [address] | [address] [facility] [place] | | | | | [address] | [address] | | | | | Mailcode: [id number] | | | | | | [facility] | | | | | | [address] [place], [place] | | | | | | [address] | | | | | | [phone] | | | +--------+ + + + [...]
--- OUTSIDE RECORDS SUMMARY | ~2019-10-22 | XMS | Encounter Summary ---
Demographics + + + | Address | [address] | | | [place] [address] | + + + | Home Phone | | + + + | Preferred Language | Unknown | + + + | Marital Status | | + + + | Judaism Affiliation | MET | + + + [...] Team Providers + +------+ + | Care Roll Coating Machine Operator Name | Role | Phone [...] | | | | | | Rd [facility] | | | | | | Hospital Admitting | | | | | | Desk Located on the | | | | | | 9th floor | | | | | | [place], [place] | | | | | | [address] | | | +--------+ + + + [...]
--- OUTSIDE RECORDS SUMMARY | ~2019-10-22 | XMS | Encounter Summary ---
Demographics + + + | Address | [address] | | | [place] [address] | + + + | Home Phone [...] Team Providers + +------+ + | Care Cleaner Touch Up Worker Name | Role | Phone | + +------+ + | Mary Vazquez PA-C | PCP | | + +------+ + Encounter Details +--------+ + + + + | Date | Type | Department | Care Team | Description | +--------+ + + + + | 05/14/ | Procedure | Diagnostic Imaging | | | | 2018 | Pass | Services at [facility] | | | | | | [address] | | | | | | Nora Funes [facility] | | | | | | [facility], [address] [place] [address] | | | | | | [place], [place] | | | | | | [address] | | | | | | [phone] | | | +--------+ + + + [...]
--- OUTSIDE RECORDS SUMMARY | ~2019-10-22 | XMS | Encounter Summary ---
Demographics + + + | Address | [address] | | | [place] [address] | + + + | Home Phone | | + + + | Preferred Language | Unknown | + + + | Marital Status | | + + + | Anglican Affiliation | Unknown | + + + | Race | White | + + + | Ethnic Group | Not or | + + + Author + + + | Author | [facility] | | | and [place] | + + + | Organization | [facility] | | | [...] Team Providers + +------+ + | Care Site Head Name | Role | Phone | + [...] + | 01/29/ | Telephone | [facility] | Chana Luu, | Records Request | | 2014 | | CARDIOLOGY [address] | MD [address] | | | | | [place], | [place] | | | | | [place] [address] | [address] | | | | | [phone] | | | +--------+ + + + [...] PM PSTFaxed request received from Venus at [facility] Neurosurgery to fax most recent records to them. Faxed to Attn: Venus at [facility] Neurosurgery fax number [phone], as Venus requested by fax: Hospital Discharge Summary 12-29-14 Echo 12-28-14 NSTEMI 12-28-14 EKG 12-28-14 Labs 12-29-14 Notation on coversheet: "Pt has a hospital follow-up appointment scheduled with Dr. Ramiro ni on 02-17-15." documented in this encou nter Plan of Treatment Not on filedocumented as of this encounter Visit Diagnoses Not on filedocumented in this encounter
--- OUTSIDE RECORDS SUMMARY | ~2019-10-22 | XMS | Encounter Summary ---
Demographics + + + | Address | [address] | | | [place] [address] | + + + | Home Phone [...] Providers + +------+ + | Care Web Communications Specialist Name | Role | Phone | [...] | | | Therapy | | Manami, COMPUTER NUMERIC CONTROL SETTER | [address] | | | | | Communicatin | [address] | | | | | g | [address] | for Health | | | | | hydrocephalu | [place], [place] | and Healing, | | | | | s (HCC) | [address] | Building 1, | | | | | Procedures | | 1st Floor | | | | | PHYSICAL | | [place], [place] | | | | | THERAPY | | [address] | | | | | REFERRAL | | Phone: | | | | | PAyscal A 4 | | [phone] | | | | | visits only | | Fax: | | | | | | | [phone] | +--------+--------+ + + + + Reason [...] | | | | | | | [id number] | | | | | | | [facility] | | | | | | | [place], | | | | | | | [place] [address] | | | | | | | Phone: | | | | | | | [phone] | | | | | | | Fax: | | | | | | | [phone] | +--------+--------+ + + + + Encounter Details +--------+ + + + + | Date | Type | Department | Care Team | Description | +--------+ + + + + | 03/03/ | Hospital | [facility] [address] | Peter Urbina MD | | | 2008 - | Encounter | [address] | Paramjit Huber MD | | | | | [id number] [facility] | [address] | | | 03/08/ | | [facility] [place], | [place], [place] | | | 2008 | | [place] [address] | [address] | | | | | | [phone] | | | | | | | [...] Emergency R o, and was referred to [facility] 03/03/08. She has a history of craniotomy [...] until next appointment. Call: . Ask the lamination operator to page Neurosurgery resident. If you [...] appointmen t. Follow Up Tests: (Tests at [facility] must be entered into Epic) None at [...] in this encou nter Discharge Instructions Instructions aCri Wiley RN - 03/06/2008Formatting of this note [...] Emergency R o, and was referred to [facility] 03/03/08. She has a history of craniotomy [...] until next appointment. Call: . Ask the lamination operator to page Neurosurgery resident. If you [...] appointmen t. Follow Up Tests: (Tests at [facility] must be entered into Epic) None at [...] Gram Stai n...........: Gram smear performed at [facility]. Culture: Final Report: No growth afte [...] ulty - 03/08/2008 12:00 AM LAINECielo Bell [id number] [facility] REC NUMBER: [id number] NAME : Cielo Bell DATE : 1950 Admit Date: 03/03/2008 Discharge Date: 03/08/2008 PHYSICIAN'S REQUEST FOR HOME HEALTH SERVICES Relevant History: 03/08/2008 13:11 Home PT/OT arranged through [facility] under their indigent program. Requests for home weatherizing worker and manager social media referral also made to assist family in 24 hour care. [place], [phone] Location to receive services if other than home: Home Allergies: Height: Weight: Ordering Physician: Paramjit Huber [address] [facility] [place] [address] Physician to follow for ongoing home health orders: PCP to follow for HH PCP Name: Luis Manuel Baker PCP Phone: unavailable Discharge Need(s): Lug Loader: ALEKSANDAR Shoemaker Brian, MD,PhD - 03/07/2008 11:47 [...] available. The patient was positioned appropriately. [facility] members were present during the team pause: Dr. Crabtree, Dr. Landeros, Dr. Chadwick, Oliva [facility] Staff Preoperative Diagnosis: Communicating Hydrocephalus Postoperative Diagnosis: [...] Gram Stai n...........: Gram smear performed at [facility]. Culture: Final Report: No growth afte [...] Gram Stai n...........: Gram smear performed at [facility]. Culture: Preliminary Report: No growt h [...] Gram Stai n...........: Gram smear performed at [facility]. Culture: Preliminary Report: No growt h [...] monitors, virtals q 4 hrs, transfer to [facility]. I spent 28 minutes actively involved in [...] Physician & Surgeon Department of Neurological Surgery [facility] [place] [address] Pager: [phone] Lisa He MD - 0 03/04/2008 7:00 [...] breakdown No results found for this basename: PH:5,PCO2:5,PO2:5,HCO3:5,NKRDI5SKG:5,S9DUYUQI:5,S4NHZYM RC:5,FIO2:5 in the last 72 hours Chemistries [...] Gram Stain ...........: Gram smear performed at [facility]. Culture: Final Report: No growth after 3 days. Final Report 10/27/07 Blood Culture Source..................: Left Subclavian Central venous ca theter Result................... Final: No growth at 5 days. 10/27/07 Urine Culture Source...............: Benavides Cath Urine Culture: Final Report: No growth (< 1,000 col/ml) after 24 hours Final Report Resulted : 10/29/07 [facility] ([facility]) [facility] [place] [address] [place] [address] 10/27/07 Respiratory Culture Source...............: Sputum Sputum Culture: [...] card monitor, follow labs (CBC), plan for AUTOMOBILE TAILLIGHT ASSEMBLER shunt I spent 41 minutes actively involved [...] Physician & Surgeon Department of Neurological Surgery [facility] [address] [facility] [address] [place] [address] Pager: [phone] Vahid Coleman MD - 03/03/2008 8:03 AM [...] breakdown No results found for this basename: PH:5,PCO2:5,PO2:5,HCO3:5,BRQNX4MWL:5,S8AGJAVN:5,V7LLZKJ RC:5,FIO2:5 in the last 72 hours Chemistries [...] Gram Stain ...........: Gram smear performed at [facility]. Culture: Final Report: No growth after 3 days. Final Report 10/27/07 Blood Culture Source..................: Left Subclavian Central venous ca theter Result................... Final: No growth at 5 days. 10/27/07 Urine Culture Source...............: Benavides Cath Urine Culture: Final Report: No growth (< 1,000 col/ml) after 24 hours Final Report Resulted : 10/29/07 [facility] ([facility] [facility]) [facility] [address] [place] [address] 10/27/07 Respiratory Culture Source...............: Sputum Sputum Culture: [...] Gram Stain ...........: Gram smear performed at [facility]. Culture: Final Report: No growth after [...] a CT scan done, and referred to [facility] This CT scan was not available with [...] to posadas ve [facility] & transferred to [facility]. 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 Dr. Urbina and Dr. [...] craniotomy in [place]. However since about [place] it has been worse. She also started [...] was abnormal. She was tranferred her to [facility]. The patients only complaint is head and [...] 10/19/07 now with hydrocephalus. Will likely need AUTOMOBILE TAILLIGHT ASSEMBLER shunt. Gi gia current abscess- placement of [...] AM PSTAssociated Order(s): TEACHING PHYSICIAN; TEACHING PHYSICIAN [id number] ONOFRE CASTRO [id number] Date: 03/03/2008 Attending Surgeon: Peter Urbina M.D. Surgical Garment Assembler(s): Galileo Landeros M.D. Preoperative Diagnosis(es): Neck abscess. Postoperative Diagnosis(es): Neck abscess. Procedures Performed: Incision and drainage of abscess. This is Dr. Urbina dictating to certify I was present for all critical portions of the case. Please addend this to the operative note by Dr. Landeros. Peter Urbina M.D. / [id number] / [id number] / [id number] / Galileo Bain MD - 2008 12:00 AM PSTAssociated Order(s): OPERATION RECORD; OPERATION RECORD [id number] ONOFRE CASTRO [id number] Date: 03/03/2008 Attending Surgeon: Peter Urbina M.D. Surgical Garment Assembler(s): Galileo Landeros M.D. Preoperative Diagnosis(es): Left neck [...] M.D. Peter Urbina M.D. HS / HS [id number] / [id number] / [id number] / documented in this encounte r Miscellaneous [...] the patients abilities. Home care arranged through [facility], unfunded program, [place], , fax, [phone]. Family members have been traine d in home wound care as well. Referral also made for manager social media to see and assist family with resources for in-home support. Spoke with OCRINE Wagner, regarding yesterdays PT rec that tho ordaz receive caregiver training but family has cared for pt for many months in-home and he is comfortable with current family support. Orders faxed to [facility]. No other anticipate d needs for discharge. [place], [phone] lan of [facility] - Cari Wiley, ALEKSANDAR - 03/07/2008 5:40 [...] cleansed with normal saline and repacked. lan [facility] - Stephania Linares, PT - 03/07/2008 [...] [place] [id number] lan of Care - Stephania Linares, PT [...] Patient does have hardship funding arranged through [facility], for outpt PT in the past, but [...] dc is appropriate. Will adolphcarmella hoffmanKimberli Robbins, [phone] lan of [place] - Terence Martins - 03/06/2008 11:32 AM PSTProblem: Case Managment Goals Goal: Discharge Needs Met Outcome: Goal not met Patient being followed by PT with recommendation to continue PT, patient also incontinent. Patient unfunded for in-home assist or snf placement. Unsure at this point of families abili ty to assist in the home when discharge is appropriate. [place], [phone] lan of Care - Reedsallykenyetta raoBernard - [...] distractability, and impulsivity/decreased safety awareness with abner walotn. Pt will need 24 hour supervision for [...] to provide. Bernard No OTR/L Rehab department [phone] Pager [phone] lan of Care - Vijay Stephania, PT - 03/05/2008 10:25 AM PSTPhysical Therapy Evaluation Diagnosis: hydrocephalus, s/p I&D of left neck abscess, POSADAS and GLF with +LOC, may need VPS PMH: A comm aneurysm clip 09/28, HTN, GERD, COPD, Chronic low back pain, ear infection, part ial thyroidectomy, hysterectomy, cholecystectomy, bladder suspension Activity: ambulate Precautions: fall risk Social/PLOF: Patient lives in [place], [place] with ; has two children who [...] state month and year; initially "I'm in [place]" Quality of responses: slow with responses, requires increased processing time. Command following: fair [employer] Memory: NT Short Term Memory: NT Judgment [...] paramjit [place] [address] 1 1:30 AM PSTPlan of Silvia Stone [...] needs: Will follow for transfer/discharge needs. [place], [phone] lan Kingsley Barton rn - 03/03/2008 2:28 [...] + | SENT TO | Held in [facility] | | [facility] | | | | Receiving and | | DEPARTMENT | | | | Processing:Ext 6-2018 | | OF | | | | | | PATHOLOGY | | + + + + + + + + | Specimen | + + | | + + + + + + + | Performing | Address | City/State/Zipcode | Phone Number | | Organization | | | | + + + + + | [facility] DEPARTMENT OF | [address] | [place] [address] | | | PATHOLOGY | [address] | | | + + + + + | [facility] DEPARTMENT OF | [address] | [place] [address] | | | PATHOLOGY | [address] [...] DEPARTMENT OF | [address] | [place] [address] | | | PATHOLOGY | [address] | | | + + + + + | [facility] DEPARTMENT OF | [address] | [place] [address] | | | PATHOLOGY | [address] [...] | + + + + + | [facility] DEPARTMENT OF | [address] | [place] [address] | | | PATHOLOGY | [address] | | | + + + + + | [facility] DEPARTMENT OF | [address] | [place] [address] | | | PATHOLOGY | [address] [...] DEPARTMENT OF | [address] | [place] [address] | | | PATHOLOGY | [address] | | | + + + + + | [facility] DEPARTMENT OF | [address] | [place] [address] | | | PATHOLOGY | [address] [...] | + + + + + | [facility] DEPARTMENT OF | [address] | [place] [address] | | | PATHOLOGY | [address] | | | + + + + + | [facility] DEPARTMENT OF | [address] | [place] [address] | | | PATHOLOGY | [address] [...] | + + + + + | [facility] DEPARTMENT OF | [address] [facility] | [place] [address] | | | PATHOLOGY | [address] | | | + + + + + | [facility] DEPARTMENT OF | [address] | [place] [address] | | | PATHOLOGY | [address] [...] | + + + + + | [facility] | [address] | [place] [address] | | | PATHOLOGY | [address] | | | + + + + + | [facility] | [address] | [place] [address] | | | PATHOLOGY | [address] [...] at | | | | | | [facility]. Culture: | | | | | | Final Report: No | | | | | | growth after 3 days. | | | | | | Final ReportComment: | | | | | | Test performed at [facility] | | | | | | [facility] | | | | | | Laboratory. | | | | + + + + + + + + | Specimen | + + | Cerebrospinal fluid | + + + + + + + | Performing | Address | City/State/Zipcode | Phone Number | | Organization | | | | + + + + + | [facility] | [address] | [place] [address] | | | LAB-MICRO | | | [...] DEPARTMENT OF | [address] | [place] [address] | | | PATHOLOGY | [address] | | | + + + + + | [facility] DEPARTMENT OF | [address] | [place] [address] | | | PATHOLOGY | [address] [...] | + + + + + | [facility] | [address] | [place] [address] | | | PATHOLOGY | [address] | | | + + + + + | [facility] | [facility] | [place] [address] | | | PATHOLOGY | [address] [...] | + + + + + | [facility] DEPARTMENT OF | [address] | [place] [address] | | | PATHOLOGY | [address] | | | + + + + + | [facility] DEPARTMENT OF | [address] | [place] [address] | | | PATHOLOGY | [address] | | | + + + + + MAGNESIUM, PLASMA (03/05/2008 12:30 AM PST) + +-------+ + + + | Component | Value | Ref Range | Performed | Pathologist | | | | | At | Signature | + +-------+ + + + | MAGNESIUM,P | 2.0 | 1.8 - 2.5 mg/dL | [facility] | | | [facility] | | [...] | + + + + + | [facility] DEPARTMENT OF | [address] | [place] [address] | | | PATHOLOGY | [address] | | | + + + + + | [facility] | [address] | [place] [address] | | | PATHOLOGY | [address] [...] DEPARTMENT OF | [address] | [place] [address] | | | PATHOLOGY | [address] | | | + + + + + | [facility] DEPARTMENT | [address] | [place] [address] | | | PATHOLOGY | [address] [...] | + + + + + | [facility] | [address] | [place] [address] | | | PATHOLOGY | [address] | | | + + + + + | [facility] | [address] | [place] [address] | | | PATHOLOGY | [address] [...] | + + + + + | [facility] DEPARTMENT OF | [address] | [place] [address] | | | PATHOLOGY | [address] | | | + + + + + | [facility] DEPARTMENT OF | [address] | [place] [address] | | | PATHOLOGY | [address] | | | + + + + + MAGNESIUM, PLASMA (03/05/2008 12:30 AM PST) + + + + + + | Component | Value | Ref Range | Performed | Pathologist | | | | | At | Signature | + + + + + + | MAGNESIUM,P | Combined. | 1.8 - 2.5 mg/dL | [facility] | | | [facility] | | [...] | + + + + + | [facility] DEPARTMENT OF | [facility] | [place] [address] | | | PATHOLOGY | [address] | | | + + + + + | [facility] DEPARTMENT OF | [address] | [place] [address] | | | PATHOLOGY | [address] [...] | + + + + + | [facility] DEPARTMENT OF | [address] [facility] | [place] [address] | | | PATHOLOGY | [address] | | | + + + + + | [facility] DEPARTMENT OF | [address] | [place] [address] | | | PATHOLOGY | [address] [...] | + + + + + | [facility] DEPARTMENT OF | [address] | [place] [address] | | | PATHOLOGY | [address] | | | + + + + + | [facility] DEPARTMENT OF | [address] | [place] [address] | | | PATHOLOGY | [address] [...] | + + + + + | [facility] DEPARTMENT OF | [address] | [place] [address] | | | PATHOLOGY | [address] | | | + + + + + | [facility] DEPARTMENT OF | [address] [facility] | [place] [address] | | | PATHOLOGY | [address] [...] | + + + + + | [facility] DEPARTMENT OF | [address] | [place] [address] | | | PATHOLOGY | [address] | | | + + + + + | [facility] DEPARTMENT OF | [address] | [place] [address] | | | PATHOLOGY | [address] [...] + | SENT TO | Held in [facility] | | [facility] | | | | Receiving and | | DEPARTMENT | | | | Processing:Ext [phone] | | OF | | | | | | PATHOLOGY | | + + + + + + + + | Specimen | + + | | + + + + + + + | Performing | Address | City/State/Zipcode | Phone Number | | Organization | | | | + + + + + | [facility] DEPARTMENT | [address] | [place] [address] | | | PATHOLOGY | [address] | | | + + + + + | [facility] DEPARTMENT OF | [address] [facility] | [place] [address] | | | PATHOLOGY | [address] [...] | + + + + + | [facility] DEPARTMENT OF | [address] | [place] [address] | | | PATHOLOGY | [address] | | | + + + + + | [facility] DEPARTMENT OF | [address] [facility] | [place] [address] | | | PATHOLOGY | [address] | | | + + + + + PROTEIN, CSF (03/03/2008 1:56 PM PST) + +-------+ + + + | Component | Value | Ref Range | Performed | Pathologist | | | | | At | Signature | + +-------+ + + + | TOTAL | 26 | 15 - 45 mg/dL | [facility] | | | PROTEIN CSF | [...] | + + + + + | [facility] DEPARTMENT | [address] | [place] [address] | | | PATHOLOGY | [address] | | | + + + + + | [facility] DEPARTMENT OF | [address] | [place] [address] | | | PATHOLOGY | [address] [...] + | [facility] DEPARTMENT OF | [address] [facility] | [place] [address] | | | PATHOLOGY | [address] | | | + + + + + | [facility] DEPARTMENT OF | [address] | [place] [address] | | | PATHOLOGY | [address] [...] DEPARTMENT OF | [address] | [place] [address] | | | PATHOLOGY | [address] | | | + + + + + | [facility] DEPARTMENT OF | [address] | [place] [address] | | | PATHOLOGY | [address] [...] DEPARTMENT OF | [address] | [place] [address] | | | PATHOLOGY | [address] | | | + + + + + | [facility] DEPARTMENT OF | [address] | [place] [address] | | | PATHOLOGY | [address] [...] | + + + + + | [facility] DEPARTMENT OF | [address] | [place] [address] | | | PATHOLOGY | [address] | | | + + + + + | [facility] DEPARTMENT OF | [address] | [place] [address] | | | PATHOLOGY | [address] [...] at | | | | | | [facility]. Culture: | | | | | | Final Report: No | | | | | | growth after 3 days. | | | | | | Final ReportComment: | | | | | | Test performed at [facility] | | | | | | [facility] | | | | | | Laboratory. | | | | + + + + + + + + | Specimen | + + | Cerebrospinal fluid | + + + + + + + | Performing | Address | City/State/Zipcode | Phone Number | | Organization | | | | + + + + + | [facility] | [address] | [place] [address] | | | LAB-MICRO | | | [...] + | [facility] DEPARTMENT OF | [address] | [place] [address] | | | PATHOLOGY | [address] | | | + + + + + | [facility] DEPARTMENT OF | [address] | [place] [address] | | | PATHOLOGY | [address] [...] | + + + + + | [facility] DEPARTMENT OF | [address] | [place] [address] | | | PATHOLOGY | [address] | | | + + + + + | [facility] DEPARTMENT OF | [address] | [place] [address] | | | PATHOLOGY | [address] [...] | + + + + + | [facility] | [address] [facility] [facility] | [place] [address] | | | PATHOLOGY | [address] | | | + + + + + | [facility] | [address] [place] [address] | [place] [address] | | | PATHOLOGY | [address] [...] Lab) | | | | | | [facility] | | | | | | [facility] | | | | | | [address] | | | | | | [place], | | | | | | [place] [address]Abiobtz: | | | | | | Test performed at [facility] | | | | | | [facility] | | | | | | Laboratory. | | | | + + + + + + + + | Specimen | + + | Abscess - Skin | + + + + + + + | Performing | Address | City/State/Zipcode | Phone Number | | Organization | | | | + + + + + | [facility] | [address] | [place] [address] | | | LAB-MICRO | | | [...] | + + + + + | [facility] | [facility] [facility] | [place] [address] | | | PATHOLOGY | [address] | | | + + + + + | [facility] | [facility] [facility] | [place] [address] | | | PATHOLOGY | [address] [...] | + + + + + | [facility] | [address] [facility] | [place] [address] | | | PATHOLOGY | [address] | | | + + + + + | [facility] | [address] | [place] [address] | | | PATHOLOGY | [address] [...] | + + + + + | [facility] DEPARTMENT OF | [address] [facility] | [place] [address] | | | PATHOLOGY | [address] | | | + + + + + | [facility] DEPARTMENT OF | [address] [facility] | [place] [address] | | | PATHOLOGY | [address] [...] | + + + + + | [facility] | [address] [facility] [facility] | [place] [address] | | | PATHOLOGY | [address] | | | + + + + + | [facility] | [address] [facility] | [place] [address] | | | PATHOLOGY | [address] [...] | | | | | | [facility] ([address] [facility]) | | | | | | [facility] | | | | | | [facility] | | | | | | [address] [address] [facility] | | | | | | [place], | | | | | | [place] [address]Woqjqxz: | | | | | | Test performed at [facility] | | | | | | [facility] | | | | | | Laboratory. | | | | + + + + + + + + | Specimen | + + | | + + + + + + + | Performing | Address | City/State/Zipcode | Phone Number | | Organization | | | | + + + + + | [facility] | [address] | [place] [address] | | | LAB-MICRO | | | [...] | + + + + + | [facility] | [address] | [place] [address] | | | PATHOLOGY | [address] | | | + + + + + | [facility] | [facility] [address] | [place] [address] | | | PATHOLOGY | [address] [...] | + + + + + | [facility] | [address] | [place] [address] | | | PATHOLOGY | [address] | | | + + + + + | [facility] | [address] [place] [address] [address] | [place] [address] | | | PATHOLOGY | [address] [...] | | | | | | DENIZ GANIES | | | | + + + + + + + + | Specimen | + + | | + + + +---------+ + + | Performing | Address | City/State/Zipcode | Phone Number | | Organization | | | | + +---------+ + + | [facility] DEPARTMENT OF | | | | [...] | + + + + + | [facility] | [address] [facility] [facility] | [place] [address] | | | PATHOLOGY | [address] | | | + + + + + | [facility] | [address] [facility] [facility] | [place] [address] | | | PATHOLOGY | [address] | | | + + + + + INR (03/03/2008 12:06 AM PST) + + + + + + | Component | Value | Ref Range | Performed | Pathologist | | | | | At | Signature | + + + + + + | INR | 1.05Comment: | 0.90 - 1.20 INR | [facility] | | | | INR Therapeutic ranges [...] | + + + + + | [facility] DEPARTMENT OF | [address] | [place] [address] | | | PATHOLOGY | [address] | | | + + + + + | [facility] DEPARTMENT OF | [address] | [place] [address] | | | PATHOLOGY | [address] [...] | + + + + + | [facility] | [address] [facility] [facility] | [place] [address] | | | PATHOLOGY | [address] | | | + + + + + | [facility] | [address] [facility] [facility] | [place] [address] | | | PATHOLOGY | [address] [...] DEPARTMENT OF | [address] | [place] [address] | | | PATHOLOGY | [address] | | | + + + + + | [facility] DEPARTMENT OF | [address] | [place] [address] | | | PATHOLOGY | [address] [...] | + + + + + | [facility] | [address] | [place] [address] | | | PATHOLOGY | [address] | | | + + + + + | [facility] | [address] [place] [address] | [place] [address] | | | PATHOLOGY | [address] | | | + + + + + TEACHING PHYSICIAN (03/03/2008 12:00 AM PST) + + + | Narrative | Performed At | + + + | [id number] | | | [id number] [id number] | | | [facility] [id number] | | | Date: 03/03/2008 Attending Surgeon: | | | Peter Urbina M.D. Surgical Garment Assembler(s): | | | Galileo Landeros M.D. Preoperative [...] M.D. KL / HS | | | [id number] / [id number] / [id number] / | | | | | + + + + + | Procedure Note | + + | Peter Urbina MD - 03/03/2008 12:00 AM PST [id number] | | [id number] [facility] | | [id number] Date: 03/03/2008 Attending Surgeon: Peter | | Narinder Urbina Surgical Garment Assembler(s): Galileo Landeros M.D. Preoperative | | Diagnosis(es):Neck abscess. Postoperative Diagnosis(es):Neck abscess. Procedures | | Performed:Incision and drainage of abscess. This is Dr. Urbina dictating to certify I was | | present for all criticalportions of the case. Please addend this to the operative note | | by . Peter Urbina M.D. LEIGHANN / [id number] / [id number] / [id number] / T: | | 03/04/2008 | | | | | | | |Surgical Garment Assembler(s): Galileo Landeros M.D. | | | | [...] | | | |KL / HS | |[id number] / [id number] / [id number] / | | | | | | | | | | | | | | | | | | | | | + + OPERATION RECORD (03/03/2008 12:00 AM PST) + + + | Narrative | Performed At | + + + | [id number] | | | [id number] | | | [facility] [id number] Date: | | | 03/03/2008 Attending Surgeon: | | | Peter Urbina M.D. Surgical Garment Assembler(s): | | | Galileo Landeros M.D. Preoperative [...] Urbina, | | | Narinder / ELINA [id number] / [id number] / [id number] / T: | | | 03/03/2008 | | + + + + + | Procedure Note | + + | Galileo Landeros MD - 03/03/2008 12:00 AM PST [id number] | | [id number] [facility] | | [id number] Date: 03/03/2008 Attending Surgeon: Peter | | Narinder Urbina Surgical Garment Assembler(s): Galileo Landeros M.D. Preoperative | | Diagnosis(es):Left [...] | | Narinder Kay M.D. HS / [id number] / [id number] / [id number] / T: | | 03/03/2008 | | [...] | | | |HS / HS | |[id number] / [id number] / [id number] / | | | | | | [...] DEPARTMENT OF | [address] | [place], [place] [address] | | | PATHOLOGY | [address] | | | + + + + + | [facility] | [address] | [place] [address] | | | PATHOLOGY | [address] [...] 10:45 | | | | | Starting [facility] 03/07/08 at 1035, | | AM PST [...]
--- OUTSIDE RECORDS SUMMARY | ~2019-10-22 | XMS | Encounter Summary ---
Demographics + + + | Address | [address] | | | [place] [address] | + + + | Home Phone [...] Providers + +------+ + | Care Telephone Repairer Name | Role | Phone | [...] | | | | | Rd [facility] | | | | | | Hospital Admitting | | | | | | Desk Located on the | | | | | | 9th floor | | | | | | [place], [place] | | | | | | [address] | | | +--------+ + + + [...]
--- OUTSIDE RECORDS SUMMARY | ~2019-10-22 | XMS | Encounter Summary ---
Demographics + + + | Address | [address] | | | [place] [address] | + + + | Home Phone | | + + + | Preferred Language | Unknown | + + + | Marital Status | | + + + | Roman Catholic Affiliation | MET | + + [...] Team Providers + +------+ + | Care Day Light Relief Operator Name | Role | Phone | + +------+ + | Mary Vazquez PA-C | PCP | | + +------+ + Encounter Details +--------+ + + + + | Date | Type | Department | Care Team | Description | +--------+ + + + + | 09/14/ | Procedure | Diagnostic Imaging | | | | 2018 | Pass | Services at [facility] | | | | | | [address] | | | | | | Nora Funes [facility] | | | | | | [facility], [address] [place] [address] | | | | | | [place], [place] | | | | | | [address] | | | | | | [phone] | | | +--------+ + + + [...]
--- OUTSIDE RECORDS SUMMARY | ~2019-10-22 | XMS | Encounter Summary ---
Demographics + + + | Address | [address] | | | [place] [address] | + + + | Home Phone | | + + + | Preferred Language | Unknown | + + + | Marital Status | | + + + | Anabaptism Affiliation | MET | + + + [...] | + + +---------+ + | Augusto eBll | ECON | Unknown | | + + +---------+ + | Thaddeus Gerard | ECON | Unknown | | + + +---------+ + | Eric Leung | ECON | Unknown | | + + +---------+ + Care Team Providers + +------+ + | Care Fence Installer Foreman Name | Role | Phone | + [...] [address] | | | | | [facility] | [facility] | | | | | Hospital Admitting | [place] [address] | | | | | Desk Located on the | [phone] | | | | | 9th floor | | | | | | [place], [place] | Merari Sotomayor CRNA | | | | | [address] | [address] | | | | | | [place] [facility], | | | | | | [place] [address] | | | | | | [phone] | | | | | | | [...] | | | protocol (done by at [facility]) | | | +--------+ + + [...] be different from the original. Cielo Bell [id number] Vitals Value Taken Time BP 124/66 09/19/2018 [...] Name: Nimco Stanley DO Performed by PIPE GLAZIER METAL FURNITURE Name: Merari Sotomayor CRNA nesthesia Procedure Not es - eMrari Sotomayor CRNA - 09/19/2018 1:47 PM PDTAssociated [...] diff erent from the original. Cielo Bell [id number] Allergies Allergen Reactions [place] Tar Hives Betadine [Povidone-Iodine (With Soap)] Rash [...] Chronic pain Skull defect Coronary arteriosclerosis in [place] artery History of non-ST elevation myocardial infarction [...] Bladder suspension 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 Heat Treat Puller shunt Tympanoplasty Right 1987 Lumpectomy of left breast 1978 Coronary stent placement 12/28/2014 status post stent placement in the mid LAD Removal of vp marketing shunt Cholecystectomy Current Medication List Name Sig [...] Date RATE 66 09/19/2018 ATRIALRATE 67 09/19/2018 MA 172 09/19/2018 QRS 92 09/19/2018 QT 437 [...] STEMI s/p BMS (denies symptoms since last WI ~2 years prior -COPD - 3L O2 [...] mid-30 % -- Lexiscan Cardiolite stress test ([facility] Severe LV enlargement, marked scarring (co mprising approximately 60% of the entire LV) of the entire anterior, anteroseptal, mid and d istal inferior, inferoseptal, inferolateral and anterolateral segments with no evidence of i schemia, EF 16% -- Echo (12/28/14-[facility]): EF 54%, apical hypokinesis, grade 1 diastolic dysfunction, mild AI -- Cardiac Cath / PCI (12/28/14 - [facility]): LVEDP 35, LM-normal, mid LAD- [...] D 12/2015) medically managed cardiac stents past WI Last WI: > 1 year valvular problems /murmurs AR [...] STEMI s/p BMS (denies symptoms since last WI ~2 years prior -COPD - 3L O2 [...] mid-30 % -- Lexiscan Cardiolite stress test (07/27/16-[facility]): Severe LV enlargement, marked scarring (co mprising approximately 60% of the entire LV) of the entire anterior, anteroseptal, mid and d istal inferior, inferoseptal, inferolateral and anterolateral segments with no evidence of i schemia, EF 16% -- Echo (12/28/14-[facility]): EF 54%, apical hypokinesis, grade 1 diastolic dysfunction, mild AI -- Cardiac Cath / PCI (12/28/14 - [facility]): LVEDP 35, LM-normal, mid LAD- [...] D 12/2015) medically managed cardiac stents past WI Last WI: > 1 year valvular problems /murmurs AR [...] | | | | | dose on [facility] 09/14/18 at 1630, | | | | [...]
--- OUTSIDE RECORDS SUMMARY | ~2019-10-22 | XMS | Encounter Summary ---
Demographics + + + | Address | [address] | | | [place] [address] | + + + | Home Phone | | + + + | Preferred Language | Unknown | + + + | Marital Status | | + + + | Adventism Affiliation | Unknown | + + + [...] Team Providers + +------+ + | Care Lightning Protection Installer Name | Role | Phone | [...] | | | [address] | [place] [address] | | | | | [place], [place] | | | | | | [address] | | | | | | [phone] | | | +--------+ + + + [...]
--- OUTSIDE RECORDS SUMMARY | ~2019-10-22 | XMS | Encounter Summary ---
Demographics + + + | Address | [address] | | | [place] [address] | + + + | Home Phone | | + + + | Preferred Language | Unknown | + + + | Marital Status | | + + + | Yazdanism Affiliation | Unknown | + + + | Race | White | + + + | Ethnic Group | Not or | + + + Author + + + | Author | [facility] | | | and [place] | + + + | Organization | [facility] | | | and [...] Team Providers + +------+ + | Care Transcription Name | Role | Phone | + [...] + + | 12/27/ | Hospital | [facility] | Chana Rangel, | Chronic obstructive | | 2015 - | Encounter | MED CTR ICU [address] | [address] | pulmonary disease, | | | | [place], | [place], [place] | unspecified COPD | | 12/29/ | | [place] [address] | [address] | type (HCC) (Primary | | 2014 | | [phone] | | Dx); H/O cerebral | | | | | | aneurysm repair; | | | | | | NSTEMI (non-ST | | | | | | elevated myocardial | | | | | | infarction) ([facility]) | +--------+ + + + [...] chest pain. She was taken to the medical lab scientist. successful PCI of the LAD Bare metal [...] patch on as this could result in RI. She was able to tolerate nebulizer. She [...] and the first on is negative. Echo: [facility] ECHOCARD[facility]GRAM REPORT STUDY DATE: 12/28/2014 PATIENT NAME: Cielo Bell : 1950 PCP: Lance Pandya CLINICAL HISTORY/DIAGNOSIS: RI A transthoracic echocardiogram with M-mode, pulsed-wave and [...] the affected wrist straigh t. Call the floor person who did your procedure as soon as possible. Other Concerns Call the floor person who did your procedure if you have: Any of these Signs of Infection: Redness Fever higher than 101.5 degrees F or 38.6 degrees C Change in the bruise or lump. Numbness in your arm or wrist. Severe pain that is not relieved by Tylenol. Follow-up Care Continue your prescribed medications unless instructed otherwise. Follow-up with your primary health care provider and floor person after your procedure, as instructed. If you have questions or concerns about your cardiac catheterization procedure, call the number below. AttachmentsThe following attachments cannot be sent through Care Everywhere.CANCER, PREVENT ING ([place])COPD, WHAT IS ([place])HEART ATTACK, SYMPTOMS OF A ([place])LIVING WELL AFTER A HEART ATTACK ([place])LUNG DISEASE, CHRONIC: CONTROLLING STRESS ([place])LUNG DISEASE, CH RONIC: STARTING AN EXERCISE PLAN ([place])LUNG DISEASE, CHRONIC: TIPS FOR QUITTING SMOKING ( [place])QUESTIONS FOR YOUR HEALTH CARE TEAM, HEART ATTACK ([place])SMOKE FREE,BENEFITS OF LIVING ([place])SMOKE,WHY DO YOU ([place])SMOKING CESSATION ([place])SMOKING WITHDRAWAL, COPING WITH ([place])SMOKING,GETTING SUPPORT FOR QUITTING ([place])SMOKING,HEALTH EFFEC TS OF ([place])SMOKING,PLANNING TO QUIT ([place])SMOKING,TIPS FOR QUITTING (CARDIOVASCUL AR) ([place])EXERCISING AFTER A HEART ATTACK ([place])documented in this encounter Medications at Time of [...] the original. CARDIOLOGY PROGRESS NOTE on 12/29/2014 [facility] Pt. Name/Age/: Cielo Bell 64 y.o. 1950 Med. Record Number: [id number] Primary Care Physician: Lance Pandya Date of [...] 75 No results for input(s): PHART, PO2ART, ERL2LHK, Z0FYTLRC, BEART in the last 168 hours. Recent Labs Lab 12/29/14 0408 12/28/14 0745 12/28/14 0007 TROPONINI 75.39* >100.00* 28.90* Recent Labs Lab 12/29/14407 INR 1.01 Micro results last 72hrs: Microbiology Results (72 hrs) Procedure Component Value Units Date/Time Culture, Respiratory, Lower, Smear [[id number]] Collected: 12/28/14 1236 Order Status: Completed Lab Status: Preliminary result Updated: 12/28/14 1447 Specimen Information: Respiratory / Sputum, expectorated Gram Stain Result 3+ White Blood Cells 1+ Epithelial cells 3+ Gram positive cocci 2+ Gram negative diplococci 1+ Gram negative rods Culture, MRSA [[id number]] Collected: 12/28/14 0808 Order Status: Completed Lab [...] oxyCODONE Electronically signed by: Chana Rangel MD [facility] 12/29/2014 8:06 [facility] Portions of this chart may have been created with Encover voice recognition software. Occasi onal wrong-word or [...] RN - 12/28/2014 11:09 AM PSTDischarge cardiac medical lab scientist education performed . Patient given engineering laboratory technician plavix folder. Patient and patient's family [...] Nausea And Vomiting Codeine Nausea And Vomiting [place] Tar Hives Povidone Iodine Hives Sulfa Antibiotics [...] in the radial right ECG: Evolving anterior RI LAB RESULTS: LIPID No results found for: [...] ECGs available Confirmed by CHANA RANGEL MD ([id number]) on 12/28/2014 6:53:08 AM Troponin I Result [...] in Anterior leads Serial changes of evolving RI Confirmed by CHANA RANGEL MD ([id number]) on 12/28/2014 6:55:04 AM Comprehensive Metabolic Panel [...] Lavender Top Tube Done ASSESSMENT: Acute anterior RI with delayed presentation H/O 2 cerebral aneurysms (coil and clip 2007) HTN Dyslipidemia PLAN: Discussed smoking cessation Discussed medical Rx Echo Electronically signed by: Chana Rangel MD [facility] 12/28/2014 Portions of this chart may have been created with Encover voice recognition software. Occasi onal wrong-word or [...] and 1 coiled. She also has a FLIPPING MACHINE OPERATOR shunt that is not functioning and not [...] Nausea And Vomiting Codeine Nausea And Vomiting [place] Tar Hives Povidone Iodine Hives Sulfa Antibiotics [...] normal right radial Skin benign ECG: Anterior RI with Q waves LAB RESULTS: LIPID Not available CHEMISTRY Gluc 127 Creat 0.82 K 4.1 HEMATOLOGY No results found for: WBC 13.1, WBCEX, HGB 13.8 HGBEX, HCT, HCTEX, PLT, 233 I reviewed records from [facility] and [facility] ASSESSMENT: Anterior RI - ongoing pain H/O cerebral aneurysms H/O [...] patient. Electronically signed by: Chana Rangel MD [facility] 12/27/2014 Portions of this chart may have been created with Encover voice recognition software. Occasi onal wrong-word or [...] Review . Outcome: Progressing Patient lives in [place], [place] and will be discharging home today. PCP is Dr. Pandya. Will follow up with medical lab scientist to make a appointment. No further needs. Electronically signed by: JUSTINA Guillory 12/29/2014 12:48 After speaking with MARCELL Garcia, she stats that patient needed a nebulizer at discharge. Ashkan glass faxed the Rx, face sheet to [facility] in [place]. She spoke with Vivek to set this [...] VSS. lan of [place] - Marleny Jolley, INTERNAL MEDICINE NURSE PRACTITIONER - 12/28/2014 6:30 PM PSTFormatting of this [...] 3 12-14 4 15+ 5 lan of [facility] - Ronda Velasquez RN - 12/28/2014 9:46 AM PSTBlack tarry loose stool hemoccult positiveEl ectronically signed by Ronda Perla RN at 12/28/2014 9:47 AM PSTPlan of [facility] - Ronda Limon RN - 12/28/2014 9:15 AM PSTLarge emesis absent nausea - 250 ml undigested f oods/juices from breakfast - declined prn meds as no nausea followed emesisElectronically si gned by Ronda Perla, ALEKSANDAR at 12/28/2014 10:15 AM PSTPlan of [facility] - Meme Richter, RN - 12/28/2014 [...] on heparin for the ambulance ride from [place] until she went down for stent placement. [...] consent form sig gem. Patient transported to medical lab scientist with RN and monitor without incident. Electronically [...] | | | | | | type ([facility]) H/O | | | | | | cerebral aneurysm | | | | | | repair NSTEMI | | | | | | (non-ST elevated | | | | | | myocardial | | | | | | infarction) ([facility]) | | + +------+--------+ + [...] | | | | | | [employer] | | | | | [...] ST. | [address] | [place] | [phone] | | [facility] | | [address] | | | - LABORATORY | | [...] [address] | [place] | [phone] | | [facility] | | [address] | | | - LABORATORY | | [...] + | [facility] | [address] | [place] | [phone] | | [facility] | | [address] | | | - LABORATORY | | [...] | mL/min/1.73m2 | [facility] | | | [place] | RATE,ESTIMATED | | MEDICAL | | | | mL/min/1.22l0Mneg than | | CENTER - | | [...] + | [facility] [facility] | [address] | [place] | [phone] | | [facility] | | [address] | | | - LABORATORY | | [...] [address] | [place] | [phone] | | [facility] | | [address] | | | - LABORATORY | | | | + + + + + ECHO Complete (12/28/2014 11:00 AM PST) + + | Specimen | + + | | + + + + + | Narrative | Performed At | + + + | [facility] ECH[facility] REPORT | | | STUDY DATE: 12/28/2014 PATIENT NAME: Cielo Bell | | | : 1950 PCP: Lance Pandya | | | CLINICAL HISTORY/DIAGNOSIS: RI A transthoracic echocardiogram | | | with [...] Hugo Garcia MD | | | PhD [facility] 12/28/2014 11:57 Specialty Sales Representative: Karol | | | MARIANA [...] [address] | [place] | [phone] | | [facility] | | [address] | | | - LABORATORY | | [...] | | | | | | [employer] | | | | | [...] [address] | [place] | [phone] | | [facility] | | [address] | | | - LABORATORY | | [...] + | [facility] | [address] | [place] | [phone] | | [facility] | | [address] | | | - LABORATORY | | [...] [address] | [place] | [phone] | | [facility] | | [address] | | | - LABORATORY | | [...] | 0.77 | 0.60 - 1.30 | [facility] | | | | | mg/dL | [facility] | | | | | | MEDICAL | | | | | | CENTER - | | | | | | LABORATORY | | + + + + + + | eGFR, | >60Comment: GLOMERULAR | >=60 | [facility] | | | non- | FILTRATION | mL/min/1.73m2 | [facility] | | | [place] | RATE,ESTIMATED | | MEDICAL | | | | mL/min/1.21p2Tjfi than | | CENTER - | | [...] [address] | [place] | [phone] | | [facility] | | [address] | | | - LABORATORY | | [...] + | [facility] | [address] | [place] | [phone] | | [facility] | | [address] | | | - LABORATORY | | [...] MD | | | | | | ([id number]) on 12/28/2014 | | | | | [...] Performed At | + + + | [facility] Percutaneous Coronary Intervention | | | Report PATIENT NAME: Cielo Bell DATE OF : | | | 1950 DATE OF PROCEDURE: | | | 12/28/2014 | | | PRIMARY | | | CARE PROVIDER: Lance Pandya BIODIESEL PRODUCT MANAGER: Chana Rangel, | | | , [facility], [facility] PRE-PROCEDURE DIAGNOSIS: NSTEMI with ongoing | | [...] | | using a micropuncture kit. A 5-Kazakh PAPA guide catheter was | | | [...] chart were created | | | with Encover voice recognition software. Occasional wrong-word or | [...] + | [facility] | [address] | [place] | [phone] | | [facility] | | [address] | | | - LABORATORY | | [...] [address] | [place] | [phone] | | [facility] | | [address] | | | - LABORATORY | | [...] [address] | [place] | [phone] | | [facility] | | [address] | | | - LABORATORY | | [...] | | | | | | [employer] | | | | | [...] [address] | [place] | [phone] | | [facility] | | [address] | | | - LABORATORY | | [...] by | | | | | | CAHNA RANGEL MD | | | | | | ([id number]) on 12/28/2014 | | | | | [...] Chronic obstructive pulmonary disease, unspecified COPD type ([facility]) | + + | H/O [...]
--- OUTSIDE RECORDS SUMMARY | ~2019-10-22 | XMS | Encounter Summary ---
Demographics + + + | Address | [address] | | | [place] [address] | + + + | Home Phone [...] Team Providers + +------+ + | Care Sheet Metal Welder Name | Role | Phone | + +------+ + PCP | Unavailable | + +------+ + Encounter Details +--------+ + + + + | Date | Type | Department | Care Team | Description | +--------+ + + + + | 10/17/ | EKG Results | Cardiac | Other, Faculty | | | 2007 | Only | Non-Invasive Testing | [phone] | | | | | at [facility] | | | | | | [address] | | | | | | [address] | | | | | | [place], [facility] floor | | | | | | [place], [place] | | | | | | [address] | | | | | | [phone] | | | +--------+ + + + [...] detailed | CARDIOLOGY | | interpretation from [employer] results. | | |results. | | | | | + + + + + + + + | Performing | Address | City/State/Zipcode | Phone Number | | Organization | | | | + + + + + | [facility] | [address] | [place], [place] | | | CARDIOLOGY | [address] | [address] | | + + + + + | [facility] | [address] | [place], [place] | | | CARDIOLOGY | [address] | [address] | | + + + + + documented in this encounter Visit Diagnoses Not on filedocumented in this encounter
--- OUTSIDE RECORDS SUMMARY | ~2019-10-22 | XMS | Encounter Summary ---
Demographics + + + | Address | [address] | | | [place] [address] | + + + | Home Phone | | + + + | Preferred Language | Unknown | + + + | Marital Status | | + + + | Hoahaoism Affiliation | Unknown | + + + | Race | White | + + + | Ethnic Group | Not or | + + + Author + + + | Author | [facility] | | | and [place] | + + + | Organization | [facility] | | [...] Team Providers + +------+ + | Care Resume Writer Name | Role | Phone | [...] + | 01/28/ | Telephone | [facility] | Chana Luu, | Noe | | 2014 | | CARDIOLOGY [address] | MD [address] | | | | | [place], | [place] | | | | | [place] [address] | [address] | | | | | [phone] | | | +--------+ + + + [...] Berry - 01/28/2015 4:11 PM PSTElvert from [facility] called and yasmin ayala to get Clearance for patient to have hardware removal surgery. I Discussed this with ALEKSANDAR Adkins and she stated that patient needs to be seen by Dr.Abraham ni for [facility] FU before patient can be cleared Relayed message to [facility] and he verbalized understanding documented in this encounter Plan of Treatment Not on filedocumented as of this encounter Visit Diagnoses Not on filedocumented in this encounter"
--- OUTSIDE RECORDS SUMMARY | ~2019-10-22 | XMS | Clinical Summary ---
Demographics + + + | Address | [address] | | | [place] [address] | + + + | Home Phone [...] Team Providers + +------+ + | Care Thermodynamicist Name | Role | Phone | + +------+ + | Mary Vazquez PA-C | PCP | | + +------+ + Source Comments MICHELLE is fully live on both EpicCare Ambulatory and EpicCare InPatient.[facility] Allergies + + + + [...] + + + + + + | Limon Tar | Hives | High | 06/07/19 [...] | | did not travel here to [facility] with it -stable on 4L NC-RT [...] | vancomycin and ZosynAnticipate ID consult in [facility] | | intraoperative cultures- 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 | | on 10/23/2015 by Cecile, | | | | | | 550 / | | MD Paramjit at [facility] | | | | | | /[id number] | | REV LOC | | | | | | 16 | + +------+--------+ +--------+--------+--------+ | Cover Emmanuel Hole .5mm 17mm | | Right: | [employer] [place] | | | 421.52 | | Craniomaxillofacial Titanium | | Head | | | | 7 / / | | Low Profile Nonsterile - | | | | | | | | [id number]: Qty: 2 on | | | | | | | | 10/23/2015 by Paramjit Huber | | | | | | | | at [facility] INPATIENT REV LOC | | | | | | | + +------+--------+ +--------+--------+--------+ | Screw Bone 4mm 1.55mm 2.55mm | | Right: | [employer] [place] | | | 04.503 | | Matrixneuro | | Head | | | | .104.0 | | Craniomaxillofacial Titanium | | | | | | 1 / / | | Self Drill Nonsterile - | | | | | | | | [id number]: Qty: 2 on | | | | | | | | 10/23/2015 by Paramjit Huber, | | | | | | | | at [facility] INPATIENT REV LOC | | | | | | | + +------+--------+ +--------+--------+--------+ | Plate Bone 18mmx.5mm 2y Low | | Right: | [facility] | | | 421.51 | | Profile Craniomaxillofacial | | Head | | | | 6 / / | | Titanium 6 Hole Nonsterile - | | | | | | | | [id number]: Qty: 1 on | | | | | | | | 10/23/2015 by Paramjit Huber, | | | | | | | | at [facility] INPATIENT REV LOC | | | | | | | + +------+--------+ +--------+--------+--------+ | Peek Psi ImplantImplanted: | | Right: | [facility] | | | [id number]. | | Qty: 1 on 05/08/2018 by | | Head | | | | 420 / | | Paramjit Huber MD at [facility] | | | | | | /[id number] | | INPATIENT REV LOC | | | | | | 06 | + +------+--------+ +--------+--------+--------+ | Cement Bone Cranios 5ml | | Right: | [employer] [place] | | 09/17/ | 615.05 | | Reinforced Fast Set Putty | | Head | | | 2020 | .01S / | | Sterile - [id number]: | | | | | | | | Qty: 1 on 05/08/2018 by | | | | | | /[id number] | | Paramjit Huber MD at [facility] | | | | | | [id number] | | INPATIENT REV LOC | | | | | | | + +------+--------+ +--------+--------+--------+ | Screw Bone 4mm 1.55mm 2.55mm | | Right: | [employer] [place] | | | 04.503 | | Matrixneuro | | Head | | | | .104.0 | | Craniomaxillofacial Titanium | | | | | | 5 / / | | Self Drill Nonsterile - | | | | | | | | [id number]: Qty: 4 on | | | | | | | | 05/08/2018 by Paramjit Huber, | | | | | | | | at [facility] INPATIENT REV LOC | | | | | | | + +------+--------+ +--------+--------+--------+ | Plate Bone 12mmx.5mm Straight | | Right: | [employer] [place] | | | 421.50 | | Craniomaxillofacial Titanium | | Head | | | | 2 / / | | 2 Hole [place] Space Low | | | | | | | | Profile - [id number]: | | | | | | | | Qty: 3 on 05/08/2018 by | | | | | | | | Paramjit Huber MD at [facility] | | | | | [...] | | /[id number] | | MD at [facility] INPATIENT REV LOC | | | [...] | | | | | | | [id number]: Qty: 9 on | | | | | | | | 08/03/2018 by Casey Hewitt, | | | | | | | | at [facility] INPATIENT REV LOC | | | | | | | + +------+--------+ +--------+--------+--------+ | Probe Doppler 17.4cm Flow | | Head | COOK | | 04/20/ | [id number] | | Safe Implantable | | | MEDICAL | | 2021 | / | | Microvascular Anastomoses | | | | | | /[id number] | | Cuff 20mhz Standard Sterile - | | | | | | 82 | | [id number]: Qty: 1 | | | | | | | | on 08/03/2018 by Ata White | | | | | | | | at [facility] INPATIENT REV LOC | | | | | | | + +------+--------+ +--------+--------+--------+ | Dressing Biological [id number] | | Right: | [employer] | | 05/21/ | [id number] | | 4x10in Bovine Collagen | | Head | LIFESCIENCE | | 2020 | 1 / | | Glycosaminoglycan | | | S | | | /[id number] | | Polysiloxane Adherent Bilayer | | | | | | 47 | | Matrix - [id number]: | | | | | | | | Qty: 1 on 09/19/2018 by Christopher | | | | | | | | MD Ata at [facility] INPATIENT | | | | | [...] 4mm 1.55mm 2.55mm | | Right: | [employer] [place] | | | 04.503 | | Matrixneuro | | Head | | | | .104.0 | | Craniomaxillofacial Titanium | | | | | | 5 / / | | Self Drill Nonsterile - | | | | | | | | [id number]: Qty: 1 on | | | | | | | | 05/08/2018 by Paramjit Huber, | | | | | | | | at [facility] INPATIENT REV LOC | | | [...] | | | | | | | [id number]: Marcelina, | | | | | | | | MD Casey (Quantity not on | | | | | | | | file)Explanted: Qty: 1 on | | | | | | | | 08/03/2018 by Casey Hewitt, | | | | | | | | at [facility] INPATIENT REV LOC | | | [...] + +--------+ | MEDICARE | MEDICA | [id number] | | [phone] | [address] | Medica | | | RE A & | | [address] | [phone] | re | | | [address] | | esent | | [place], [place] | | | | | | | | [address] | | + +--------+ +--------+ + +--------+ | [employer] [place] | MUTUAL | [id number] | | [phone] | Indemn | | MEDICARE SUPPL | OF | | 018-Pr | 0 | [employer] OF | ity | | | [place] | | esent | | [place] [address] | | | | MEDICA | | | | [place] | | | | RE | | | | [phone] | | | | SUPPL | | [...] | 1950 | [phone] | [place] [address] | | | surjit | | | [...]
--- OUTSIDE RECORDS SUMMARY | ~2019-10-22 | XMS | Encounter Summary ---
Demographics + + + | Address | [address] | | | [place] [address] | + + + | Home Phone [...] Providers + +------+ + | Care American History Professor Name | Role | Phone | [...] + | 10/22/ | Hospital | [facility] [address] | Magnolia Diego MD | | | 2016 - | Encounter | [address] | [address] | | | | | [id number] [facility] | [place], [place] | | | 10/24/ | | [facility], | [address] | | | 2015 | | [place] [facility] | [phone] | | | | | [phone] | | | +--------+ + + + [...] of major salivary glands Goiter CAD in [place] artery Comment:s/p NSTEMI 12/27/2014; status post stent [...] suffered an AZ and was placed on aspirin and Plavix [...] 11/07/2015 11:30 AM NSG FELLOW Neurosurgery at [facility] Destination: Destination: Home Condition on Discharge Good Future Appointments [facility] [place] 11/07/2015 11:30 AM NSG FELLOW Neurosurgery at [facility] [phone] Neurosurgery Warning Symptoms and Signs If you [...] clinic hours, M-F 7:30-4:30 pm, please call [phone] or after hours call Neurosu rgery resident at [phone] Pain Medications DO NOT restart plavix until [...] Physician: MD Piotr Woods MD Neurosurgery Resident [id number] documented in this encou nter Progress Notes Frances Mcfadden PA - 10/24/2015 11:58 AM PDTFormatting of this note might be differen t from the original. . Neuroscience Intensive Care Unit Team Progress Note NSICU ASSIGNED #[id number] Admission dx: m95.2 1 Days in ICU 1 Days in Hospital Abbreviated HPI / Daily Assessment Cielo Bell is a 65 y/o F smoker w/ hx COPD, CAD w/ AZ s/p Stents in Dec 2014, with hx [...] treatment team members Provider Role Ipt Neurosurgery #[id number] Treatment Team Ipt Critical Care Nsicu #[id number] Treatment Team Patient Lines/Drains/Airways Status Active Lines, [...] ICU NEURO Place of Service:- Inpatient CSN: [id number] Suggested Modifier: None Suggested CPT: TO HOT DIPPER ANSON Irvin Author:ANSON Chatterjee [address] [place] [address] Jerzy Saez MD - 10/24/2015 10:36 AM PDT . Neuroscience Intensive Care Unit Attending Progress Note Attending Pager #[phone] Hospital admission dx: m95.2 1 Days in ICU 1 Days in Hospital Abbreviated HPI / Daily Assessment Cielo Bell is a 65 y/o F smoker w/ hx COPD, CAD w/ AZ s/p Stents in Dec 2014, with hx [...] treatment team members Provider Role Ipt Neurosurgery #[id number] Treatment Team Ipt Critical Care Nsicu #94037 Treatment Team The Advanced Care Note for [...] and the recent imaging available. Seen with PA/TREATMENT SPECIALIST Ashish Mcfadden. Please see their note for details. I reviewed the documented findings, all data and the recent imaging available. Date of Service: 10/24/2015 Author:Jerzy Centeno MD [id number] [place] [address] Tommie Connelly - 03/2015 4:28 AM PDT [...] Stain...........: Gram smear performed at [facility]. Culture: Final Report: No growth after [...] suffered an AZ and was placed on aspirin and Plavix [...] prior to discharge Please page adult resident lead recreation assistant [id number] with questions Tmomie Bliss MD, PhD PGY-2, Neurosurgery 4:28 AM, [...] DO Skull Base Fellow Department of Neurosurgery [facility] Georgia Rosado MD - 10/23/2015 7:16 PM PDTFormatting of this note might be different fro clover the original. . Neuroscience Intensive Care Unit Attending Progress Note Attending Pager #[phone] Hospital admission dx: m95.2 Days in ICU Days in Hospital Abbreviated HPI / Daily Assessment Cielo Bell is a 65 y/o F smoker w/ hx COPD, CAD w/ AZ s/p Stents in Dec 2014, with hx [...] treatment team members Provider Role Ipt Neurosurgery #[id number] Treatment Team Ipt Critical Care Nsicu #61243 Treatment Team The Advanced Care Note for [...] EPIC DEPARTMENT: ANE ICU NEURO Place of Service:[address]- Inpatient CSN: [id number] Suggested Modifier: None Suggested CPT: TO HOT DIPPER Author:Georgia Rosado MD [address] [place] [address] Cammie Maria MD - 10/22 10:35 AM [...] in bed Cammie Ramos MD Neurosurgery PGY2 [id number] documented in this encounte r H&P Notes Jerzy Centeno MD - 10/23/2015 4:36 PM PDTFormatting of this note might be different fr om the original. . Neuroscience Intensive Care Unit Attending H&P Note Attending Pager #[phone] Admission dx: m95.2 Days in ICU Days in Hospital HPI Cielo Bell is a 65 y/o F smoker w/ hx COPD, CAD w/ AZ s/p Stents in Dec 2014, with hx of rupture Acomm aneurysm s/p clipping in 2007. 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 She was seen in neurosurgery clinic for follow up in Dec 2014 sh ortly after her AZ. At that clinic appt 12/2014, she was noted to have a Right frontal scre w protrusion. Due to her recent AZ and bare metal stent placement, she was [...] thrombosis. Restart home metop and pravastatin. O2 MN N at night. Regular diet, SCDs. Should [...] treatment team members Provider Role Ipt Neurosurgery #07339 Treatment Team Ipt Critical Care Nsicu #41737 Treatment Team This patient does not have [...] and the recent imaging available. Seen with PA/TREATMENT SPECIALIST Ephraim Mcfadden. Please see their note for details. I reviewed the documented findings, all data and the recent imaging available. Date of Service: 10/23/2015 Author:Jerzy Centeno MD [address] [address] Frances Baldwin PA - 10/23/2015 4:08 PM PDT . Neuroscience Intensive Care Unit Team H&P Note NSICU ASSIGNED #[id number] Days in ICU Days in Hospital POD#0 s/p R synthetic cranioplasty Admitting Provider: MAGNOLIA DIEGO Ray is a 65 y/o F smoker w/ hx COPD, CAD w/ AZ s/p Stents in Dec 2014, with hx of rupture Acomm aneurysm s/p clipping in 2007. 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 She was seen in neurosurgery clinic for follow up in Dec 2014 sh ortly after her AZ. At that clinic appt 12/2014, she was noted to have a Right frontal scre w protrusion. 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 CAD in [place] artery s/p NSTEMI 12/27/2014; status post stent placement in the mid LAD Abnormal LFTs (liver function tests) MRSA (methicillin resistant staph aureus) culture positive post cariotomy for SAH Continuous tobacco abuse Past Surgical History Procedure Laterality Date Partial thyroidectomy Right Hysterectomy Cholecystecomy Bladder suspension 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 Political Science Instructor shunt Tympanoplasty Right 1987 Lumpectomy of left breast 1979 Coronary stent placement 12/28/2014 status post stent placement in the mid LAD Allergies Allergen Reactions Woodland Tar Hives Betadine [Povidone-Iodine (With Soap)] Unknown [...] treatment team members Provider Role Ipt Neurosurgery #74541 Treatment Team Ipt Critical Care Nsicu #33728 Treatment Team Patient Lines/Drains/Airways Status Active Lines, [...] e. Date of Service: 10/23/2015 ANSON Chatterjee [facility] DEPARTMENT: ANE ICU NEURO Place of Service:- Inpatient CSN: [id number] Suggested Modifier: None Suggested CPT: TO HOT DIPPER ANSON Irvin Author:ANSON Chatterjee [address] [id number] signed by ANSON Irvin at 10/23/2015 5:38 [...] Allergies reviewed / updated Allergies Allergen Reactions Woodland Tar Hives Betadine [Povidone-Iodine (With Soap)] Unknown [...] of major salivary glands Goiter CAD in [place] artery s/p NSTEMI 12/27/2014; status post stent placement in the mid LAD Abnormal LFTs (liver function tests) MRSA (methicillin resistant staph aureus) culture positive post cariotomy for SAH Past surgery reviewed and updated Past Surgical History Procedure Date Partial thyroidectomy Hysterectomy Cholecystecomy Bladder suspension 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 Political Science Instructor shunt Tympanoplasty 1987 Lumpectomy of left breast [...] Alert and appropriate; nl affect. alert Findings: Cutlet Maker Pork nial nerves 2-12 intact, Motor 5/5 strength [...] this patient's care. Mable Lee MD [facility] AT [facility] 4TH FLOOR DAY STAY [address] [place] [address] I spent time [...] ice: 10/23/2015 Attending Surgeon: Magnolia Diego MD River Guide(s): Antoinette Del Valle MD, PhD Dameon Scanlon [...] suffered an AZ and was placed on as pirin and [...] br ought to the [facility]. She was sedated and intubated [...] Antoinette Adkins MD, PhD MD XI Woods/NGUYEN /[id number] I, Dr. Magnolia Diego, was the primary surgeon and in the OR during the critical portions of this procedure. There was no complication. Magnolia Diego MD [facility] [address] NSI [id number] [address] rause, Antoinette Gomez MD,PhD - 10/23/2015 10:08 [...] manipulated Disposition: PACU, cooper Antoinette Adkins MD,PhD [id number] signed by Magnolia Diego MD at 10/24/2015 [...] be able to sleep tonight (10/24/152039) [facility] IP NURSE HANDOFF: Nesbitt hospital course events: Cielo Bell is a 65 y/o F smoker w / hx COPD, CAD w/ AZ s/p Stents in Dec 2014, with hx of rupture Acomm aneurysm s/p clipping in 2007. 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 She was seen i neurosurgery clinic for follow up in Dec 2014 shortly after her AZ. At that clinic appt , she was noted to have a Right frontal screw protrusion. Due to her recent AZ and bare metal stent placement, she was [...] go out and smoke (10/24/15 1506) [facility] IP NURSE HANDOFF: Nesbitt hospital course events: Cielo Bell is a 65 y/o F smoker w / hx COPD, CAD w/ AZ s/p Stents in Dec 2014, with hx of rupture Acomm aneurysm s/p clipping in 2007. 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 She was seen i neurosurgery clinic for follow up in Dec 2014 shortly after her AZ. At that clinic appt , she was noted to have a Right frontal screw protrusion. Due to her recent AZ and bare metal stent placement, she was [...] be safer [facility] COMFORT/ANXIETY/BEHAVIOR Patient Target: Patient will be free of pain. As evidenced by: Denying pain. Did not require pain medication. NURSING ASSESSMENT & RECOMMENDATIONS FORWARD Nursing Assessment of Patient Stability Risk: Moderately stable Recommendations Forward: Discharge in the morning Saskia Balderas RN - 10/24/2015 2:04 PM PDTNursing Handoff Patient Daily Goal: to go home (10/24/15 0800) [facility] IP NURSE HANDOFF: Nesbitt hospital course events: PMHx: long-time smoker, COPD on home O2 during sleep, CAD w/ AZ s/p Stents in Dec 2014, rupture Acomm [...] skilled PT. Jaylon Amor PT, DPT Pager: [phone] lan of Chris Abbott RN - 10/24/2015 9:25 AM PDTProblem: Case Management Goals Goal: Discharge Needs Met Case Management Initial Assessment Reason for Admission: cranioplasty Admitted From: home Emergency Contact: Extended Emergency Contact Information Primary Emergency Contact: Augusto Bell Relation: Son/Daughter Secondary Emergency Contact: Venessa Gerard [employer] Relation: Son/Daughter Past Medical History: Other acquired [...] smoker w / hx COPD, CAD w/ AZ s/p Stents in Dec 2014, with hx of rupture Acomm aneurysm s/p clipping in 2007. 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 She was seen i neurosurgery clinic for follow up in Dec 2014 shortly after her AZ. At that clinic appt , she was noted to have a Right frontal screw protrusion. Due to her recent AZ and bare metal stent placement, she was [...] of Care / Advance Care NSICU ASSIGNED #[id number] Date: 10/23/2015 Advanced Directives: The patient does not have an advance directive in the EMR. A POLST is not indicated in the EMR. Healthcare Agent(s): Surrogate decision maker has been identified and is : Venessa Gerard (Daughter) [phone]. The surrogate decision maker has been listed as the emergency contact within [facility]. Code Status: Current Code Status Date Active Code Status Order ID Comments User Context 10/23/2015 3:47 PM Full Code [id number] Antoinette Adkins MD,PhD Inpatient Code History: Code Status History Date Active Date Inactive Code Status Order ID Comments User Context 10/23/2015 6:46 AM 10/23/2015 3:47 PM Full Code [id number] Tommie Daniel Izaiah Inpatient 06/07/2014 9:11 AM 06/08/2014 6:06 PM Full Code [id number] Angel Mazariegos MD Inpatient 06/07/2014 6:13 AM 06/07/2014 9:11 AM Full Code [id number] Beny Cruz MD Inpatient 05/13/2008 4:34 PM 05/14/2008 7:21 PM Full Code [id number] Alli Junior MD Inpatient 04/11/2008 5:27 PM 04/13/2008 11:04 PM Full Code [id number] Saskia Nguyen RN Inpatient 03/03/2008 1:17 PM 03/08/2008 10:09 PM Full Code [id number] To Prieto MD Inpatient 03/03/2008 1:16 PM 03/03/2008 1:16 PM DNR/DNI [id number] To Prieto MD Inpatient 03/03/2008 12:06 AM 03/03/2008 1:16 PM Full Code [id number] Marlon Mcintyre MD Inpatient 10/30/2007 10:53 PM 11/02/2007 8:59 PM Full Code [id number] Antoinette Saenz RN Inpatient 10/18/2007 5:01 AM 10/30/2007 10:53 PM Full Code [id number] Norberto Pettit Mami Inpatient Narrative Summary of [...] gland 06/06/2014 Goiter 06/06/2014 Coronary arteriosclerosis in [place] artery 03/06/2015 Acute ccu-GU-zpsvgqziw myocardial infarction (HCC) 12/28/2014 Resolved Ambulatory Problems Diagnosis Date Noted GERD (gastroesophageal reflux disease) 10/24/2007 Past Medical History Diagnosis Date Essential hypertension Tobacco dependence COPD CVA (cerebral vascular accident) ([facility]) 2007 Subarachnoid hemorrhage due to ruptured aneurysm ([facility]) 2007 Benign neoplasm of major salivary glands CAD in [place] artery Abnormal LFTs (liver function tests) MRSA (methicillin resistant staph aureus) culture positive Continuous tobacco abuse Past Surgical History Procedure Laterality Date Partial thyroidectomy Right Hysterectomy Cholecystecomy Bladder suspension 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 Political Science Instructor shunt Tympanoplasty Right 1987 Lumpectomy of left breast 1978 Coronary stent placement 12/28/2014 status post stent placement in the mid LAD Allergies Allergen Reactions Woodland Tar Hives Betadine [Povidone-Iodine (With Soap)] Unknown [...] medication information: none given Functional Epidural: No LEVEL VIAL GRINDER: No Respiratory: RR: 18, O2 Sat: 94 [...] PACU Contact Name: Linda (daughter) Contact Number: [phone] Family contacted: Yes Comment: Update given to [...] medication information: none given Functional Epidural: No LEVEL VIAL GRINDER: No Respiratory: RR: 24, O2 Sat: 96 %, O2 Delivery: Oxymask Breath Sounds: WDL Except DARIEN: clear LLL: diminished RUL: clear RLL: diminished MELISSA No Comment: Cardiac: BP: 134/66 mmHg HR: 77 GI: Nausea/Vomiting Status: No Signs/Symptoms: Interventions: Assessment: Comments: : Last void: via benavides catheter in OR, catheter removed prior to PACU Contact Name: Linda (daughter) Contact Number: [phone] Family contacted: Yes Comment: Update given to [...] ERNESTO | [address] | [place], [place] | | | [facility] OF [facility] | [address] | [address] | | | TESTS | | | [...] + + + + | [facility] | [address] | [place] [address] | | | JOHNSON, RYAN | RAMSES [...] 60 - 99 mg/dL | [facility] - | | | GLUCOSE, | [...] OROZCO | [address] | [place], [place] | | | [facility] OF [facility] | [facility] | [address] | | | TESTS | | | [...] ERNESTO | [address] | [place], [place] | | | [facility] OF [place] | [address] | [address] | | | TESTS | | | [...] + + + + + | [facility]LE STEVES[facility] | [address] | [place], [place] | | | [place] OF [facility] | [address] | [address] | | | TESTS | | | | + + + + + OPERATION RECORD (10/24/2015 8:27 AM PDT) + + | Transcriptions | + + | Magnolia Diego MD - 10/23/2015 4:36 PM PDT Date of Service: 10/23/2015 Attending | | Surgeon: Magnolia Diego MD River Guide(s): Antoinette Del Valle MD, PhD Raed B [...] that appointment she | | suffered an AZ and was placed on aspirin and Plavix [...] was brought to the operating room on [facility]. She was | | sedated [...] 10/23/2015 15:01:44DT: 10/23/2015 16:36:58Job #: | | [id number], Dr. Magnolia Diego, was the primary surgeon and in the OR during the | | critical portions of this procedure. There was no complication.Magnolia Diego MDOHSU 7C | | [id number]/[place], [place] [phone] | |The new synthetic skull flap was [...] |KLK/MODL | | | | | | /[id number] | | | |I, Dr. Magnolia Diego, was the primary surgeon and in the OR during the critical portions of this procedure. There was no complication. | | | | | | | |Magnolia Diego MD | |[facility] 7C NSI | |[address] | |7c/[address] | |[place] [address] | |[phone] | + + CAPILLARY BLOOD GLUCOSE (NO [...] OROZCO | [address] | [place], [place] | | | RA[facility]AY OF CARE | [address] | [address] | | | TESTS | | | [...] [facility] | [address] | [place] [address] | | | SERVICES, CORE | RAMSES [...] | + + + + + | [facility] | [address] | [place] [address] | | | SERVICES, CORE | RAMSES [...] | | | LABORATORY | | | LATVIAN | | | SERVICES, | | | [...] + + + + + | [facility] | [address] | [place] [address] | | | SERVICES, CORE | RAMSES [...] + + | MICHELLE OROZCO | [address] [facility] [address] | [place], [place] | | | [facility] | [address] | [address] | | | TESTS | | | [...] | | PACU, cooper Antoinette Adkins MD,PhD [id number] | | + + + RENAL FUNCTION [...] | | | LABORATORY | | | LATVIAN | | | SERVICES, | | | [...] MDRD equation recommended by the | [facility] | | National Kidney Disease Education [...] | + + + + + | [facility] | [address] | [place] [address] | | | SERVICES, CORE | PARK [...] + +---------+ + + | [facility] DEPARTMENT OF | | | | [...] | + + + + + | [facility] | [address] | [place] [address] | | | SERVICES, CORE | RAMSES [...] | + + + + + | [facility] | [address] [facility] [facility] [address] | [place] [address] | | | SERVICES, CORE | RAMSES [...] | | | LABORATORY | | | LATVIAN | | | SERVICES, | | | [...] | + + + + + | [facility] | [address] | [place] [address] | | | SERVICES, CORE | PARK [...] ERNESTO | [address] | [place], [place] | | | [facility] OF [place] | [address] | [address] | | | TESTS | | | [...] | + + + + + | [employer] [employer] | [address] | [place] [address] | | | SERVICES, CORE | RAMSES [...] [facility] | [address] | [place] [address] | | | SERVICES, CORE | PARK [...] [facility] | [address] | [place] [address] | | | SERVICES, CORE | PARK [...] | | | LABORATORY | | | LATVIAN | | | SERVICES, | | | [...] MDRD equation recommended by the | [facility] | | National Kidney Disease Education [...] | + + + + + | [facility] | [address] | [place] [address] | | | SERVICES, RYAN | RAMSES [...]
--- OUTSIDE RECORDS SUMMARY | ~2019-10-22 | XMS | Encounter Summary ---
Demographics + + + | Address | [address] | | | [place] [address] | + + + | Home Phone [...] + +------+ + | Care Director Of Finance Name | Role | Phone | + +------+ + | Mary Vazquez PA-C | PCP | | + +------+ + Encounter Details +--------+ + + + + | Date | Type | Department | Care Team | Description | +--------+ + + + + | 05/14/ | Procedure | Diagnostic Imaging | | | | 2018 | Pass | Services at [facility] | | | | | | [address] | | | | | | [place] | | | | | | [facility] | | | | | | [place], [place] | | | | | | [address] | | | | | | [phone] | | | +--------+ + + + [...]
--- OUTSIDE RECORDS SUMMARY | ~2019-10-22 | XMS | Encounter Summary ---
Demographics + + + | Address | [address] | | | [place] [address] | + + + | Home Phone [...] Team Providers + +------+ + | Care Traffic Rate Clerk Name | Role | Phone | [...] health care) | | | | Jia Newton for | [place], [place] | | | | | [facility] Healing, | [address] | | | | | [address] [address] [facility] | [phone] | | | | | [place], [place] | | | | | | [address] | | | | | | [phone] | | | +--------+ + + + [...] order for Home health Care faxed to [phone] ATTN: Marce Bell - use coversheet. 08 9:30 AM PDTdocumented in this encounter Plan of Treatment Not on filedocumented as of this encounter Visit Diagnoses Not on filedocumented in this encounter"
--- OUTSIDE RECORDS SUMMARY | ~2019-10-22 | XMS | Encounter Summary ---
Demographics + + + | Address | [address] | | | [place] [address] | + + + | Home Phone [...] Team Providers + +------+ + | Care Inseamer Name | Role | Phone | + [...] | | | head | Rd | [place], [place] | | | | | Infection | [place] | [address] | | | | | and | [address] | Phone: | | | | | inflammatory | Phone: | [phone] | | | | | reaction | [phone] | Fax: | | | | | due to other | Fax: | [phone] | | | | | internal | [phone] | | | | | | prosthetic [...] | | | | | | | CLINICAL ASST | | | | | | | WY REPLACE | | | | | | | SKULL | | | | | | | PLATE/FLAP | | | | | | | WY REPAIR | | | | | | | SKULL | | | | | | | DEFECT,UP TO | | | | | | | 5CM WY | | | | | | | REPAIR SKULL | | | | | | | DEFECT,>5CM | | | +--------+--------+ + + + + Encounter Details +--------+ + + + + | Date | Type | Department | Care Team | Description | +--------+ + + + + | 02/24/ | Farmworker Cranberry | Neurosurgery at | Kari Salinas MD | 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 | [phone] | | | | | [place], [place] | | | | | | [address] | | | | | | [phone] | | | +--------+ + + + [...]
--- OUTSIDE RECORDS SUMMARY | ~2019-10-22 | XMS | Encounter Summary ---
Demographics + + + | Address | [address] | | | [place] [address] | + + + | Home Phone [...] Team Providers + +------+ + | Care Mixing Machine Tender Name | Role | Phone [...] about | | | | [address] | [address] | infusion for 12/23); | | | | Loop Physician's | [place] | Infectious disease | | | | [place], [facility] floor | [address] | | | | | [place], [place] | [phone] | | | | | [address] | | | | | | [phone] | | | +--------+ + + + [...] where to check in tomorrow evening at [facility] for her infusion. Patient verbalize d that she thinks it is disappointing that a city [place] size of [place] accommodate he r infusion. I did say that the constraints of her 3 appointments on the [facility] made it more di fficult. I asked [...] Katelyn at day surgery infusion unit at [facility] who confirmed that pt can have late dose administered on 12/23/17 o n another unit in the hospital. Pt will have to check in at admitting who will then call e nursing street light servicer supervisor so she can be escorted to appropriate floor for infusion. Called pt to discuss with her, LM on cell and home phones. Rosalina Lopez RN elephone Encounter - Kristen Goss RN - 12/21/2017 1:54 PM PDTPatient called because she has multiple appointments on 12/23 and she is driving from [facility] (3 hour trip). I told h er [...]
--- OUTSIDE RECORDS SUMMARY | ~2019-10-22 | XMS | Encounter Summary ---
Demographics + + + | Address | [address] | | | [place] [address] | + + + | Home Phone [...] Providers + +------+ + | Care Senior Landscape Architect Name | Role | Phone | [...] + + | 05/14/ | Hospital | [facility] 10K 808 Machelle Ruiz MD | | | 2019 - | Encounter | [place] | [address] | | | | | [id number] IDSU | [address] [place], | | | 05/17/ | | HOSPITAL [place], | [place] [address] | | | 2018 | | [place] [address] | [phone] | | | | | [phone] | | | | | | | Manas Spear MD | | | | | | [address] | | | | | | [place], [place] | | | | | | [address] | | | | | | [phone] | | | | | | | | | | | | Paramjit Huber MD | | | | | | [address] | | | | | | [place], [place] | | | | | | [address] | | | | | | [phone] | | | | | | | [...] Huber MD PCP: Mary Vazquez PA-C Service: [facility] Neurosurgery Diagnoses Principal Final Diagnosis: Wound dehiscence [...] Signs Please call the Neurosurgery clinic at [phone] with any questions Tuesday to Tuesday 8 A M - 4 PM. After hours, call [facility] at [phone] and ask to speak with the Neurosurgery resi dent digital content producer if you have any of the following: - Difficulty breathing or shortness of breath; - Excessive bleeding or drainage from incision sites; - Fevers, chills, sweats; - Persistent nausea or vomiting; - Change in mental status; Other Discharge Orders and Instructions Please take a picture of your incision in 1 week (05/24/18), and email to jhonathan Rodriguez rosurgery nurse practitioner at: [email or web address] Diet Regular Regular diet- There are no [...] Time Provider Department Center 06/02/2018 2:00 PM [facility] Neurosurgery 06/26/2018 12:00 PM Ata White MD [place] [address] Otolaryngolo Condition On Discharge: Good Vital Signs [...] AGACNP Neurological Surgery 05/17/18, 12:30 PM [address] [id number] [place] [address] doramila cintron in this encounter Medications at [...] again and dehisces ELAINE Bee Neurological Surgery [facility] [address] [address] [address] Pager: [phone] ax, MD Ata - 05/15/2018 5:38 PM [...] greater than 25 minutes. MD CHANDRIKA Hansen/NGUYEN /[id number] signed by Ata White MD at 05/18/2018 [...] regarding this information please contact pharmacy, pager [phone] Mali Serrano PharmD, [facility] Clinical Pharmacist [facility] Ph: [phone], Pgr: [phone] Frankie Barber MD - 05/14/2018 9:32 PM PDTAssociated Order(s): IP CONSULT TO OTOLARYNGOLOGY HEAD AND NECK SURGERY CONSULT NOTE 05/14/2018 Attending: Dr. Bravo History of Present Illness: Cielo Bell [id number] is a 68 y.o. female being evaluated [...] Systems: See HPI for pertinent positives/negatives. Allergies: Perry tar; Betadine [povidone-iodine (with soap)]; Cipro [ciprofloxacin]; [...] Abnormal LFTs (liver function tests) CAD in [place] cliff artery s/p NSTEMI 12/27/2014; status post stent [...] Bladder suspension 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 Suction Drum Drier Operator shunt Tympanoplasty Right 1987 Lumpectomy of left breast 1978 Coronary stent placement 12/28/2014 status post stent placement in the mid LAD Removal of manager eligibility shunt Cholecystectomy Social History Substance Use Topics [...] original. NEUROSURGERY HISTORY AND PHYSICAL Author: Evans Quevedo MD,MPH Attending Physician: Machelle Gaines MD PCP: [...] Abnormal LFTs (liver function tests) CAD in [place] artery s/p NSTEMI 12/27/2014; status post stent [...] Bladder suspension 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 Suction Drum Drier Operator shunt Tympanoplasty 1987 Lumpectomy of left breast 1979 Coronary stent placement 12/28/2014 status post stent placement in the mid LAD Removal of manager eligibility shunt Cholecystectomy Social History: Social History Social [...] tablet, Rfl: 0 Allergies: Allergies Allergen Reactions Perry Tar Hives Betadine [Povidone-Iodine (With Soap)] Rash [...] Please contact the Neurosurgery resident on-call pager [phone] with questions or concerns. Evans Quevedo MD MPH Neurological Surgery documented in this [facility] ED Notes Melanie Pierce RN - 05/15/2018 [...] underwent a synthetic custom cranioplasty at that [facility].The patient re-presented in November 2017, with right [...] weeks. Continuous tobacco abuse Coronary arteriosclerosis in red cliff artery 03/06/2015 History of non-ST elevation myocardial [...] ruptured aneurysm (HCC) 2007 Goiter CAD in [place] artery s/p NSTEMI 12/27/2014; status post stent placement in the mid LAD Abnormal LFTs (liver function tests) MRSA (methicillin resistant staph aureus) culture positive post cariotomy for SAH Hemorrhagic stroke (HCC) 2007 aneurysm PONV (postoperative nausea and vomiting) Past Surgical History Procedure Date Partial thyroidectomy Hysterectomy Bladder suspension 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 Suction Drum Drier Operator shunt Tympanoplasty 1987 Lumpectomy of left breast 1979 Coronary stent placement 12/28/2014 status post stent placement in the mid LAD Removal of manager eligibility shunt Cholecystectomy Medications Prior to Admission Medications [...] daily. Facility-Administered Medications: None Allergies Allergen Reactions Perry Tar Hives Betadine [Povidone-Iodine (With Soap)] Rash [...] 0.69 0.60 - 1.10 mg/dL EGFR - GUYANESE >60 >60 mL/min EGFR NON -GUYANESE >60 >60 mL/min SODIUM, PLASMA (LAB) 136 [...] 0.78 0.60 - 1.10 mg/dL EGFR - GUYANESE >60 >60 mL/min EGFR NON -GUYANESE >60 >60 mL/min SODIUM, PLASMA (LAB) 138 [...] co-wrote the ED Provider Note using the [employer] share function. I agree with the documentation [...] PDTNursing Handoff Patient Daily Goal: Sleep (05/15/18 0680) Patient Specific Preferences: "Likes the room warm" (05/15/18 6976) [facility] IP NURSE HANDOFF: Nesbitt hospital course [...] PDTNursing Handoff Patient Daily Goal: Sleep (05/15/18 8091) Patient Specific Preferences: "Likes the room warm" (05/15/18 3441) [facility] IP NURSE HANDOFF: Nesbitt hospital course [...] RN - 05/16/2018 1:28 PM PDTNursing Handoff [facility] IP NURSE HANDOFF: Nesbitt hospital course [...] at home - Monitor SBP andoff - Rianna Zarco RN - 05/16/2018 6:15 AM PDTNursing Handoff Patient Daily Goal: Sleep (05/15/18 8543) Patient Specific Preferences: "Likes the room warm" (05/15/18 1810) [facility] IP NURSE HANDOFF: Nesbitt hospital course [...] Goal: "To figure out the plan" (05/15/18 4099) Patient Specific Preferences: "Likes the room warm" (05/15/18 0442) [facility] IP NURSE HANDOFF: Nesbitt hospital course [...] RN - 05/15/2018 3:03 PM PDTNursing Handoff [facility] IP NURSE HANDOFF: Nesbitt hospital course [...] | + + + + + | [facility] | [address] | [place] [address] | | | SERVICES, CORE | RAMSES [...] | + + + + + | [facility] | [address] | [place] [address] | | | SERVICES, CORE | PARK [...] | + + + + + | [facility] [place] | [address] | [place] [address] | | | SERVICES, CORE | RAMSES [...] [facility] | [address] | [place] [address] | | | SERVICES, CORE | PARK [...] [facility] | [address] | [place] [address] | | | SERVICES, CORE | PARK [...] 8:46 AM | | | Preliminary: Danni Moise MD Dictation [...] now presented. | | | |Final signature: oDminic Castro MD 05/15/2018 8:46 AM | |Preliminary: [...] [facility] | [address] | [place] [address] | | | SERVICES, CORE | PARK [...] | epithelial cells No organisms seen | [place] | + + + + + + + + | Performing | Address | City/State/Zipcode | Phone Number | | Organization | | | | + + + + + | [facility] | [address] | [place] [address] | | | [place] | | | | + + + [...] [facility] | [address] | [place] [address] | | | SERVICES, CORE | PARK [...] | + + + + + | [facility] | [address] | [place] [address] | | | SERVICES, CORE | RAMSES [...] - [facility] | [address] | [place], [place] | | | MISTY MCGRAW OF [facility] | [address] | [address] | | | TESTS | | | | + + + + + CULTURE, BLOOD BACTI & YEAST [facility] (05/14/2018 1:53 PM PDT) + + + [...] + | [facility] | [address] | [place] [address] | | | SERVICES, CORE | RAMSES [...] [facility] | [address] | [place] [address] | | | SERVICES, CORE | PARK [...] [facility] | [address] | [place] [address] | | | SERVICES, CORE | PARK [...] | + + + + + | [facility] | [address] | [place] [address] | | | SERVICES, CORE | RAMSES [...] | + + + + + | [facility] | [address] | [place] [address] | | | RYAN ORNELAS | RAMSES [...] | + + + + + | [facility] | [address] | [place] [address] | | | SERVICES, CORE | PARK [...]
--- OUTSIDE RECORDS SUMMARY | ~2019-10-22 | XMS | Encounter Summary ---
Demographics + + + | Address | [address] | | | [place] [address] | + + + | Home Phone [...] Team Providers + +------+ + | Care Watcher Automat Long Goods Name | Role | Phone | + [...] | | | [address] | [facility] | Infectious disease | | | | Loop Physician's | [place], [place] | | | | | [place], [address] [place] [address] | [address] | | | | | [place], [place] | [phone] | | | | | [address] | | | | | | [phone] | | | +--------+ + + + [...] Kristen Goss, RN - 12/13/2017 9:38 [facility] Management Note ASSESS[facility] Spoke with Cielo at [phone]. She stated that infusions of Ceftriaxone IV have been a dministered as scheduled at 1700 at [facility] in [facility]. Denies any s/s of complicati on of [...] Faxed lab orders to Day Surgery at [phone]. They can accept lab orders from outside [...] completed without provider involvement Kristen Goss RN [facility] INFECTIOUS DIS[facility]ASE [facility] INFECTIOUS DISEASES AT [facility] 3RD FLOOR [address] [facility] [address] documented in this en counter Plan of Treatment Not on filedocumented as of this encounter Visit Diagnoses + + | Diagnosis | + + | Osteomyelitis, unspecified site, unspecified type (HCC) - Primary | + + documented in this encounter"
--- OUTSIDE RECORDS SUMMARY | ~2019-10-22 | XMS | Encounter Summary ---
Demographics + + + | Address | [address] | | | [place] [address] | + + + | Home Phone | | + + + | Preferred Language | Unknown | + + + | Marital Status | | + + + | Scientologist Affiliation | Unknown | + + + | Race | White | + + + | Ethnic Group | Not or | + + + Author + + + | Author | [facility] | | | and [place] | + + + | Organization | [facility] | | | and [...] Team Providers + +------+ + | Care Consumer Services Consultant Name | Role | Phone | [...] + | 01/10/ | Telephone | [facility] | Chana Luu, | Noe (Procedure | | 2014 | | CARDIOLOGY [address] | MD [address] | Inquiry ) | | | | [place], | [place], [place] | | | | | [place] [address] | [address] | | | | | [phone] | | | +--------+ + + + [...] 2:42 PM PSTMarsha GRIGGS called about Cielo vera, who is a patient of theirs at [facility]. Marsha says that Cielo has "hardware migrat ing [...] consultation. Will consult Dr. Luu and return Marhsa's call. Marsha is creating an encounter for this, and requests oni t we notify her via this created encounter. She may also be reached at [phone]. Nataliya Schuster RN 01/10/2015 14:47 documented in thi s encounter Plan of Treatment Not on filedocumented as of this encounter Visit Diagnoses Not on filedocumented in this encounter
--- OUTSIDE RECORDS SUMMARY | ~2019-10-22 | XMS | Encounter Summary ---
Demographics + + + | Address | [address] | | | [place] [address] | + + + | Home Phone [...] Team Providers + +------+ + | Care Precision Crop Manager Name | Role | Phone | [...] | | | Ave Center for | [place], [place] | (Subarachnoid | | | | Health and Healing, | [address] | Hemorrhage) ([facility]) | | | | [facility] | [phone] | | | | | floor [place], [place] | | | | | | [address] | | | | | | [phone] | | | +--------+---------+ + + + [...]
--- OUTSIDE RECORDS SUMMARY | ~2019-10-22 | XMS | Encounter Summary ---
Demographics + + + | Address | [address] | | | [place] [address] | + + + | Home Phone [...] Providers + +------+ + | Care Certified Orthotist Name | Role | Phone | + [...] | | | | | Services at [facility] | Ashutosh Melendez [place] | | | | | [address] | [place], [place] | | | | | [facility] | [address] | | | | | and Healing, | [phone] | | | | | [address] | | | | | | [place], [place] | | | | | | [address] | | | | | | [phone] | | | +--------+ + + + [...] brought her to their local ED in [place], [place] for evaluation, which is where they [...] to call Dr. White's office during business [facility] once Cielo has been appropriately treated for her acute concerns [facility] They are currently scheduled to be [...]
--- OUTSIDE RECORDS SUMMARY | ~2019-10-22 | XMS | Encounter Summary ---
Demographics + + + | Address | [address] | | | [place] [address] | + + + | Home Phone [...] Providers + +------+ + | Care Insurance Counselor Name | Role | Phone | [...] | | | Surgery Services at | [facility], | about the plastic | | | | [facility] [address] | [place] [address] | film coming off the | | | | [facility] for | [phone] | head wound please | | | | Health and Healing, | | call him) | | | | [address] | | | | | | [place], [place] | | | | | | [address] | | | | | | [phone] | | | +--------+ + + + [...] 10/17/2018 10:13 AM PDT From: Augusto Bell [email or web address]> Sent: Tuesday, October 16, 2018, 8:59 AM To: [email or web address] Subject: Cielo Nurard The top pic is [...]
--- OUTSIDE RECORDS SUMMARY | ~2019-10-22 | XMS | Encounter Summary ---
Demographics + + + | Address | [address] | | | [place] [address] | + + + | Home Phone [...] Providers + +------+ + | Care Machine Puller Over Name | Role | Phone | + [...] | | head | [address] | [place], [place] | | | | | Procedures | [place], [place] | [address] | | | | | REQUEST TO | [address] | Phone: | | | | | SURGERY | Phone: | [phone] | | | | | ELECTRONICS DESIGN ENGINEER | [phone] | Fax: | | | | | VT REPLACE | Fax: | [phone] | | | | | SKULL | [phone] | | | | | | PLATE/FLAP | | | | | | | VT REPAIR | | | | | | | SKULL | | | | | | | DEFECT,UP TO | | | | | | | 5CM VT | | | | | | | [...] | | | head | Rd | [place], [place] | | | | | Infection | [place] | [address] | | | | | and | [address] | Phone: | | | | | inflammatory | Phone: | [phone] | | | | | reaction | [phone] | Fax: | | | | | due to other | Fax: | [phone] | | | | | internal | [phone] | | | | | | prosthetic [...] | | | | | | | VT REPLACE | | | | | | | SKULL | | | | | | | PLATE/FLAP | | | | | | | VT REPAIR | | | | | | | SKULL | | | | | | | DEFECT,UP TO | | | | | | | 5CM VT | | | | | | | [...] | | cranioplasty | | | | [facility] for | | (Primary Dx) | | | | Health and Healing, | | | | | | | | | | | | floor [place], [place] | | | | | | [address] | | | | | | [phone] | | | +--------+---------+ + + + [...] Abnormal LFTs (liver function tests) CAD in [place] artery s/p NSTEMI 12/27/2014; status post stent [...] setting of multiple previous cranioplasties. She, u the medical center, demonstrated wound dehiscence after suture removal today. [...]
--- OUTSIDE RECORDS SUMMARY | ~2019-10-22 | XMS | Encounter Summary ---
Demographics + + + | Address | [address] | | | [place] [address] | + + + | Home Phone | | + + + | Preferred Language | Unknown | + + + | Marital Status | | + + + | Evangelical Affiliation | Unknown | + + + [...] Team Providers + +------+ + | Care Commercial Journeyman Electrician Name | Role | Phone | + +------+ + PCP | Unavailable | + +------+ + Encounter Details +--------+ + + + + | Date | Type | Department | Care Team | Description | +--------+ + + + + | 06/12/ | Hospital | [facility] | | | | 1991 | Encounter | [facility] | | | | | | [address] | | | | | | [place] | | | | | | [address] | | | | | | [phone] | | | +--------+ + + + [...]
--- OUTSIDE RECORDS SUMMARY | ~2019-10-22 | XMS | Encounter Summary ---
Demographics + + + | Address | [address] | | | [place] [address] | + + + | Home Phone [...] Team Providers + +------+ + | Care Pharmacy Director Name | Role | Phone | [...] | | Ave [facility] | [place], [place] | | | | | Health and Healing, | [address] | | | | | [facility] | [phone] | | | | | floor [place], [place] | | | | | | [address] | | | | | | [phone] | | | +--------+ + + + [...]
--- OUTSIDE RECORDS SUMMARY | ~2019-10-22 | XMS | Encounter Summary ---
Demographics + + + | Address | [address] | | | [place] [address] | + + + | Home Phone [...] + + | Author | [facility] | | | and [place] | + + + | Organization | [facility] | | | [...] Team Providers + +------+ + | Care Licensed Appraiser Name | Role | Phone | + [...] | | [facility] | I, Event Specialist | pain, unspecified | | | | [address] [place] | | chronicity; Fatigue, | | | | [place], [place] | | unspecified type | | | | [address] | | | | | | [phone] | | | +--------+ + + + [...] + | [address] | [address] | [place] | [phone] | | [facility] | | [address] | | | - LABORATORY | | [...] [address] | [place] | [phone] | | [facility] | | [address] | | | - LABORATORY | | [...] mL/min/1.73m2 | [facility] | | | Croatian | RATE,ESTIMATED | | MEDICAL | | | | mL/min/1.89h0Kkxu than | | CENTER - | | [...] [address] | [place] | [phone] | | [facility] | | [address] | | | - LABORATORY | | | | + + + + + documented in this encounter Visit Diagnoses + + | Diagnosis | + + | Bilateral shoulder pain, unspecified chronicity | + + | Fatigue, unspecified type | + + documented in this encounter"
--- OUTSIDE RECORDS SUMMARY | ~2019-10-22 | XMS | Encounter Summary ---
Demographics + + + | Address | [address] | | | [place] [address] | + + + | Home Phone [...] Team Providers + +------+ + | Care Flame Cutting Supervisor Name | Role | Phone | [...] | | | hemorrhage) | [address] | [place], [place] | | | | | (HCC) | [place], | [address] | | | | | Procedures | [place] [address] | Phone: | | | | | HI EST | Phone: | [phone] | | | | | PATIENT | [phone] | Fax: | | | | | LEVEL V | Fax: | [phone] | | | | | | [phone] | | +--------+--------+ + + + + [...] | | | Ave [facility] for | [place], [place] | | | | | Health and Healing, | [address] | | | | | [facility] | [phone] | | | | | floor [place], [place] | | | | | | [address] | | | | | | [phone] | | | +--------+---------+ + + + [...] Bety Cavazos MD - 02/24/2018 12:15 PM [facility] NEUROSURGERY CLINIC NOTE Author: BETY CAVAZOS MD Today's Date: 02/22/2018 Attending Physician: Paramjit Huber MD PROCEDURES: 10/18/2007 R pterional crani for clipping of ruptured Acomm aneurysm 03/03/2008 L neck incision and drainage 03/03/2008 HVLP 04/12/2008 R VPS medium pressure 10/23/2015 R synthetic cranioplasty 12/05/2017 explant of R VPS and explant of synthetic cranioplasty HPI: Cielo Bell is a 68 y.o woman with CAD, CT s/p stent on ASA/plavix, HTN, previo us [...] details of presentation. I spent 15 minutes nrpy-vq-[id number] with the patient of which greater than [...] s or concerns arise. Paramjit Huber MD Corporate Financial Analyst Director, Cerebrovascular and Skull Base Surgery Department of Neurological Surgery and Interventional Neuroradiology [address] [place] [address] Neurosurgery Attending Note I saw and evaluated this patient on 02/24/2018 with my resident during our neurosurgical clin ic. See also my resident's note from today's visit. I agree with the documentation findings and plan of care. Please refer to Dr. Cavazos's history and physical for details of presentation. I spent 15 minutes [id number] with the patient of which greater than [...] s or concerns arise. Paramjit Huber MD Corporate Financial Analyst Director, Cerebrovascular and Skull Base Surgery Department of Neurological Surgery and Interventional Neuroradiology [address] [place] [address] documented in this encou nter Plan of Treatment Not on filedocumented as of this encounter Visit Diagnoses + + | Diagnosis | + + | Skull defect - Primary Unspecified acquired deformity of head | + + documented in this encounter
--- OUTSIDE RECORDS SUMMARY | ~2019-10-22 | XMS | Encounter Summary ---
Demographics + + + | Address | [address] | | | [place] [address] | + + + | Home Phone [...] Team Providers + +------+ + | Care Sludge Control Attendant Name | Role | Phone | [...] Pharmacy | | | | | | [address] | | | | | | [place], [place] | | | | | | [address] | | | | | | [phone] | | | +--------+ + + + [...]
--- OUTSIDE RECORDS SUMMARY | ~2019-10-22 | XMS | Encounter Summary ---
Demographics + + + | Address | [address] | | | [place] [address] | + + + | Home Phone [...] Team Providers + +------+ + | Care Records Assistant Name | Role | Phone | [...] | | | | Loop Physician's | [place], [place] | | | | | [place], 3rd floor | [address] | | | | | [place], [place] | [phone] | | | | | [address] | | | | | | [phone] | | | +--------+ + + + [...]
--- OUTSIDE RECORDS SUMMARY | ~2019-10-22 | XMS | Encounter Summary ---
Demographics + + + | Address | [address] | | | [place] [address] | + + + | Home Phone | | + + + | Preferred Language | Unknown | + + + | Marital Status | | + + + | Yazidi Affiliation | MET | + + + [...] Team Providers + +------+ + | Care Pantry Chef Name | Role | Phone | + +------+ + | Anil Baker DO | PCP | | + +------+ + Encounter Details +--------+ + + + + | Date | Type | Department | Care Team | Description | +--------+ + + + + | 02/17/ | Telephone-S | Preoperative | Phone, [facility] | | | 2009 | cheduled | Medicine Clinic at | [facility] | | | | | MPV 4th Floor Day | Road [place], [place] | | | | | Stay [address] | [address] | | | | | [address] | | | | | | Mailcode: [id number] | | | | | | [address] | | | | | | [address] [place], [place] | | | | | | [address] | | | | | | [phone] | | | +--------+ + + + [...] - Nneka Machado - [facility]09[facility] 04/09/08. See Centricity. Nneka Machado, ARNP documented in this encounter Plan of Treatment Not on filedocumented as of this encounter Visit Diagnoses Not on filedocumented in this encounter"
--- OUTSIDE RECORDS SUMMARY | ~2019-10-22 | XMS | Encounter Summary ---
Demographics + + + | Address | [address] | | | [place] [address] | + + + | Home Phone [...] Team Providers + +------+ + | Care Atomic Process Engineer Name | Role | Phone | [...] | | | | | | [facility] | Hospital Admitting | | | | | | Desk Located on the | | | | | | 9th floor | | | | | | [place], [place] | | | | | | [address] | | | +--------+ + + + [...]
--- OUTSIDE RECORDS SUMMARY | ~2019-10-22 | XMS | Encounter Summary ---
Demographics + + + | Address | [address] | | | [place] [address] | + + + | Home Phone [...] Team Providers + +------+ + | Care Resilient Tile Installer Name | Role | Phone | [...] | | | | | [facility] | Tommie Ro | | | | | Health and Healing, | [place], [place] | | | | | [facility] | [address] | | | | | Floor [place], [place] | | | | | | [address] | | | | | | [phone] | | | +--------+ + + + [...]
--- OUTSIDE RECORDS SUMMARY | ~2019-10-22 | XMS | Encounter Summary ---
Demographics + + + | Address | [address] | | | [place] [address] | + + + | Home Phone [...] Providers + +------+ + | Care Machine Cementer Name | Role | Phone | + [...] | | | | Hospital Admitting | [place], [place] | | | | | Desk Located on the | [address] | | | | | 9th floor | [phone] | | | | | [place], [place] | | | | | | [address] | | | +--------+---------+ + + + [...] Physician: MD KASHIF ESPOSITO MD Otolaryngology, PGY1 [id number] signed by Beny Cruz MD at 06/10/2014 [...] to maintain suction. Thank you for choosing [facility] for your care and for staying with us on 5B Day Stay Unit. It h as been a pleasure caring for you! Discharge Nurse: ALMITA JIMMY Date: 06/08/2014 Discharge Time: 10:31 AM AttachmentsThe following attachments cannot be sent through Care Everywhere.COPD: CLEARING LUNGS : GENERAL INFO ([place])SURGICAL DRAIN CARE ([place])documented in this encounter Progress Notes Kashif Sunshine [...] Otolaryngology Head and Neck Surgery, PGY-1 Pager [phone] documented in this en counter H&P Notes [...] PDTAssociated Order(s): PROCEDURE NOTEOPERATIVE NOTE Cielo Bell [id number] Date of Surgery: 06/07/2014 Attending Surgeon: Beny Cruz MD Physical Therapy Professor(s): SEBASTIAN MICHELLE MD and Angel Mazariegos MD [...] reached approximately the level of the bony information technology auditor y canal. At this point of [...] d iscontinued. Patient received and understands all [facility] discharge teaching literature and EPI C discharge [...] evaluation can be referred to the RT Procurement Manager by paging [phone] Comments: Pt. Does not qualify for home oxygen.Electronically signed by Dougie Bright RCP at 06/08 11:51 AM Yeyo - Almita Marquez RN - 06/08/2014 11:32 AM PDTPrimary focus o f stay: Right superficial parotidectomy with nerve preservation 06/07 Pertinent history/background: Smoking, brain aneurysm and Secured Entrance Monitor shunt placement, MRSA, COPD, HTN, CVA Comprehensive [...] with discussion with MD and RT DC technical planner. Gave pt education at discharge for : COPD: Clearing Lungs. Pt denied pain and any interventions this shift My recommendations forward: Care is complete and pt has been discharged. Patient Stability:Moderately Stable andoff - Linda Hankins RN - 06/08/2014 4:55 AM PDTPrimary focus of stay: Right superficial parotidectomy with nerve preservation 06/07 Pertinent history/background: Smoking, brain aneurysm and Secured Entrance Monitor shunt placement, MRSA, COPD, HTN, CVA Comprehensive assessment: Pain assessment: Pt states her pain is #4/10 but does not want pain meds. Pt states h er discomfort is manageable. Spiritual, psych/social findings: Very pleasant woman. Family involved in care. Radha alejandre 02/2013. Medical findings: VSS, A&O X4, OOB to commode, steady on feet, R LAZARA drain, minimal chao inage output. R neck incision, REHAB THERAPIST, CDI. 4L of O2 & trying to [...] Prior medical history: Smoking, brain aneurysm and Secured Entrance Monitor shunt placement, MRSA, COPD, HTN, CV A [...] Additional pain medication information: Functional Epidural: N/A HOST/HOSTESS HEAD: N/A Respiratory: RR: 14, O2 Sat: 96 %, O2 Delivery: Oxymask Breath Sounds: WDL Except DARIEN: LLL: RUL: RLL: MELISSA No Comment: Cardiac: BP: 113/56 mmHg HR: 76 GI: Nausea/Vomiting Status: Yes- Zofran given. Pt states it's better now. Signs/Symptoms: Interventions: Assessment: Comments: : Last void: Around 0730 this am. Will bladder scan soon. Contact Name: Linda disla Contact Number: [phone] Family contacted: No Comment: Belongings: documented in [...] greatest | | | | | | dimension.Potato Chip Maker | | | | | | sections are submitted. | | | | | | Cassette | | | | | | Index:A1, uninvolved | | | | | | parotid parenchymaA2, | | | | | | cyst wall nearest | | | | | | parotid parenchymal | | | | | | marginA3-6, | | | | | | pharmaceutical representative sections | | | | | [...] | + + + + + | [facility] | [address] | [place] [address] | | | PATHOLOGY | [address] | | | + + + + + CARDIOLOGY (06/07/2014 12:00 AM PDT) + + + | Narrative | Performed At | + + + | | | | | | + + + + + | Procedure Note | + + | Alyssa iLu - 06/12/2014 9:08 AM PDT | + [...]
--- OUTSIDE RECORDS SUMMARY | ~2019-10-22 | XMS | Encounter Summary ---
Demographics + + + | Address | [address] | | | [place] [address] | + + + | Home Phone [...] Team Providers + +------+ + | Care Professor Of Industrial Technology Name | Role | Phone | + [...] | | | | Loop Physician's | [place], [place] | | | | | [place], [facility] floor | [address] | | | | | [place], [place] | [phone] | | | | | [address] | | | | | | [phone] | | | +--------+ + + + [...]
--- OUTSIDE RECORDS SUMMARY | ~2019-10-22 | XMS | Encounter Summary ---
Demographics + + + | Address | [address] | | | [place] [address] | + + + | Home Phone | | + + + | Preferred Language | Unknown | + + + | Marital Status | | + + + | Buddhist Affiliation | Unknown | + + + | Race | White | + + + | Ethnic Group | Not or | + + + Author + + + | Author | [facility] | | | and [place] | + + + | Organization | [facility] | | [...] Team Providers + +------+ + | Care Labor/Excavator Name | Role | Phone | + [...] [address] CRUZ | Chana Luu, | Noe ([facility]) | | 2015 | | CARDIOLOGY [address] | MD [address] | | | | | [place], | [place] | | | | | [place] [address] | [address] | | | | | [phone] | | | +--------+ + + + [...] PSTReceived a call from Nika Pepper in [place] today to let us know that they [...]
--- OUTSIDE RECORDS SUMMARY | ~2019-10-22 | XMS | Encounter Summary ---
Demographics + + + | Address | [address] | | | [place] [address] | + + + | Home Phone [...] Team Providers + +------+ + | Care Cigarette Making Machine Operator Name | Role | Phone [...] | | | [facility] for | [place], [place] | | | | | Health and Healing, | [address] | | | | | [place] [address] [facility] | [phone] | | | | | [place], [place] | | | | | | [address] | | | | | | [phone] | | | +--------+ + + + [...] scan sent t o our office from [facility] in [place]. Dr. Huber reviewed scan and said ever [...]
--- OUTSIDE RECORDS SUMMARY | ~2019-10-22 | XMS | Encounter Summary ---
Demographics + + + | Address | [address] | | | [place] [address] | + + + | Home Phone [...] Providers + +------+ + | Care Life Skills Coordinator Volunteer Name | Role | Phone | + [...] [place] | | | | | [facility] [place] for | [facility] | | | | | Health and Healing, | [place], [place] | | | | | Building [address], | [address] | | | | | floor [place], [place] | [phone] | | | | | [address] | | | | | | [phone] | | | +--------+ + + + [...] plan Piotr Townsend MD Neurosurgery Resident Pager #[phone] NSGY pager #[phone] documented in this e ncounter Plan of Treatment Not on filedocumented as of this encounter Visit Diagnoses Not on filedocumented in this encounter
--- OUTSIDE RECORDS SUMMARY | ~2019-10-22 | XMS | Encounter Summary ---
Demographics + + + | Address | [address] | | | [place] [address] | + + + | Home Phone [...] Team Providers + +------+ + | Care Drive Tester Name | Role | Phone | [...]
--- OUTSIDE RECORDS SUMMARY | ~2019-10-22 | XMS | Encounter Summary ---
Demographics + + + | Address | [address] | | | [place] [address] | + + + | Home Phone [...] Providers + +------+ + | Care Auto Cleaner Name | Role | Phone | [...] | atherosclerosis due | | | | [place], | [place], [place] | to lipid rich plaque | | | | [place] [address] | [address] | (Primary Dx); | | | | [phone] | | Fatigue, unspecified | | | [...] y.o. female with a history of Anterior RI and stent implan tation. She is being [...] She has not followed up with the [facility] neurosurgery and has no pending apt's. [...] management plan. Rickie Lane MD NEUROSURGERY AT [facility] [address] Mailcode: [id number] [phone] Clinic says she is a patient of [...] due to bronchospasm CAD (coronary artery disease), [place] coronary artery CURRENT MEDICATIONS No current outpatient prescriptions on file. She quit all of her medications No current facility-administered medications for this visit. she does take duo neb occasionally ALLERGIES Allergies Allergen Reactions Ciprofloxacin Nausea And Vomiting Codeine Nausea And Vomiting [place] Tar Hives Povidone Iodine Hives Sulfa Antibiotics [...] RESULTS reviewed during visit today primarily from [facility]: LIPID Lab Results Component Value Date CHOL [...] PLT 250 06/17/2015 I reviewed records from [facility] for Neurosurgery . ASSESSMENT: S/P STEMI 12/28/2014 [...] spoke to a couple of people at [facility]. No contraindication to the proposed surgery - she is at some increased risk due to h/o RI a nd her quitting her medications She is currently asymptomatic from a cardiac standpoint and does not require further testin g at this time - of note this is a minor surgery Follow up with me in 6 months Electronically signed by: Chana Luu MD [facility] 09/18/2015 Portions of this chart may have been created with [employer] voice recognition software. Occasi onal wrong-word or [...]
--- OUTSIDE RECORDS SUMMARY | ~2019-10-22 | XMS | Encounter Summary ---
Demographics + + + | Address | [address] | | | [place] [address] | + + + | Home Phone [...] Team Providers + +------+ + | Care Needle Polisher Name | Role | Phone | + [...] | | | | | site, | [place], [place] | | | | | | unspecified | [address] | | | | | | type (HCC) | Phone: | | | | | | Skull defect | [phone] | | | | | | Procedures | Fax: | | | | | | CT | [phone] | | | | | | STEREOTACTIC [...] | | | Health and Healing, | [place], [place] | | | | | [address] | [address] | | | | | floor [place], [place] | [phone] | | | | | [address] | | | | | | [phone] | | | +--------+ + + + [...] within 30 days of PMC for synthetic scrap carrier nioplasty. eale Granger - Nettie Jaramillo PA [...] Ball - 01/10/2018 2:24 PM PSTCall to [facility], spoke to hector Raygoza completed 01/09. Imaging [...] AM PSTCT order has been faxed to [facility] at fax number [phone]. Transmission of fax confirmed 01/04/18 at 9:59AM. Routing to managed care for insurance authorization. elephone Encounter - Nettie Jaramillo PA - 01/03/2018 1:[address] wwo contrast to be performed on 01/09 or 01/10 at [facility] in [place] in follow up of epidural abscess/osteomyelitis. Please [...]
--- OUTSIDE RECORDS SUMMARY | ~2019-10-22 | XMS | Encounter Summary ---
Demographics + + + | Address | [address] | | | [place] [address] | + + + | Home Phone [...] Team Providers + +------+ + | Care Coiled Tubing Operator Name | Role | Phone | [...] and Neck | JORGE LUIS Donald [address] [facility] | cranioplasty | | | | Surgery Services at | [address] | (Primary Dx) | | | | [facility] [address] | [place], [place] | | | | | [facility] for | [address] | | | | | Health and Healing, | [phone] | | | | | [place] [address] | | | | | | [place], [place] | | | | | | [address] | | | | | | [phone] | | | +--------+---------+ + + + [...] pain and no drainage. Allergies Allergen Reactions [place] Tar Hives Betadine [Povidone-Iodine (With Soap)] Rash [...]
--- OUTSIDE RECORDS SUMMARY | ~2019-10-22 | XMS | Encounter Summary ---
Demographics + + + | Address | [address] | | | [place] [address] | + + + | Home Phone [...] Providers + +------+ + | Care Hand Cutter Name | Role | Phone | [...] + + | 06/07/ | Hospital | [address] | Beny Cruz, | | | 2015 - | Encounter | [facility] [address] | [place] [address] [facility] | | | | | [facility] | [address] | | | 06/08/ | | [place], [place] | [place], [place] | | | 2014 | | [address] | [address] | | | | | [phone] | [phone] | | | | | | | [...] Physician: MD KASHIF ESPOSITO MD Otolaryngology, PGY1 [id number] signed by Beny Cruz MD at 06/10/2014 [...] to maintain suction. Thank you for choosing [facility] for your care and for staying with us on 5B Day Stay Unit. It h as been a pleasure caring for you! Discharge Nurse: ALMITA MARQUEZ Date: 06/08/2014 Discharge Time: 10:31 AM AttachmentsThe following attachments cannot be sent through Care Everywhere.COPD: CLEARING LUNGS : GENERAL INFO ([place]EN[place])SURGICAL DRAIN CARE ([place]EN[place])documented in this encounter Progress Notes Kashif Sunshine [...] Otolaryngology Head and Neck Surgery, PGY-1 Pager [phone] documented in this en counter H&P Notes [...] PDTAssociated Order(s): PROCEDURE NOTEOPERATIVE NOTE Cielo Bell [id number] Date of Surgery: 06/07/2014 Attending Surgeon: Beny Cruz MD Electronic Installer(s): SEBASTIAN MICHELLE MD and Angel Mazariegos MD [...] reached approximately the level of the bony compliance auditor y canal. At this point [...] the patient was then turned over to [facility] for reversal of anesthesia. After the [...] d iscontinued. Patient received and understands all [facility] discharge teaching literature and EPI C [...] evaluation can be referred to the RT Software Engineering Project Manager by paging [phone] Comments: Pt. Does not qualify for home oxygen.Electronically signed by Dougie Bright RCP at 06/08 11:51 AM PDTHandoff - Almita Marquez RN - 06/08/2014 11:32 AM PDTPrimary focus o f stay: Right superficial parotidectomy with nerve preservation 06/07 Pertinent history/background: Smoking, brain aneurysm and Puffer Tender shunt placement, MRSA, COPD, HTN, CVA Comprehensive assessment: Pain assessment: Pt states her pain is #4/10 but does not want pain meds. Pt states h er discomfort is manageable. Spiritual, psych/social findings: Very pleasant woman. Family involved in care. Radha alejandre 02/2013. Medical findings: VSS, A&O X4, OOB to commode, steady on feet, R LAZARA drain, minimal draina ge output. R neck incision, CUSTOMER SUCCESS INTERN, CDI. 1-2L of O2 & trying to [...] discussion with MD and RT DC senior program planner. Gave pt education at discharge for : COPD: Clearing Lungs. Pt denied pain and any interventions this shift My recommendations forward: Care is complete and pt has been discharged. Patient Stability:Moderately Stable andoff - Linda Hankins RN - 06/08/2014 4:55 AM PDTPrimary focus of stay: Right superficial parotidectomy with nerve preservation 06/07 Pertinent history/background: Smoking, brain aneurysm and Puffer Tender shunt placement, MRSA, COPD, HTN, CVA Comprehensive [...] Prior medical history: Smoking, brain aneurysm and Puffer Tender shunt placement, MRSA, COPD, HTN, CV A [...] Additional pain medication information: Functional Epidural: N/A KITCHEN PORTER: N/A Respiratory: RR: 14, O2 Sat: 96 %, O2 Delivery: Oxymask Breath Sounds: WDL Except DARIEN: LLL: RUL: RLL: MELISSA No Comment: Cardiac: BP: 113/56 mmHg HR: 76 GI: Nausea/Vomiting Status: Yes- Zofran given. Pt states it's better now. Signs/Symptoms: Interventions: Assessment: Comments: : Last void: Around 0730 this am. Will bladder scan soon. Contact Name: Linda disla Contact Number: [phone] Family contacted: No Comment: Belongings: documented in [...] greatest | | | | | | dimension.Contract Recruiter | | | | | | sections are submitted. | | | | | | Cassette | | | | | | Index:A1, uninvolved | | | | | | parotid parenchymaA2, | | | | | | cyst wall nearest | | | | | | parotid parenchymal | | | | | | marginA3-6, | | | | | | abrasives sales representative sections | | | | [...] | + + + + + | [facility] | [address] | [place] [address] | | | PATHOLOGY | [address] [...]
--- OUTSIDE RECORDS SUMMARY | ~2019-10-22 | XMS | Encounter Summary ---
Demographics + + + | Address | [address] | | | [place] [address] | + + + | Home Phone [...] Team Providers + +------+ + | Care Recycling Operations Manager Name | Role | Phone | [...] SKIN GRAFT | | | | [facility] | [address] [place], | RIGHT LEG TO SCALP | | | | Hospital Admitting | [place] [address] | RECONSTRUCTION 20X5 | | | | Desk Located on the | [phone] | CM | | | | 9th floor | | | | | | [place], [place] | | | | | | [address] | | | +--------+---------+ + + + [...]
--- OUTSIDE RECORDS SUMMARY | ~2019-10-22 | XMS | Encounter Summary ---
Demographics + + + | Address | [address] | | | [place] [address] | + + + | Home Phone [...] Team Providers + +------+ + | Care Emergency Response Coordinator Name | Role | Phone | [...] | | | | | Rd [facility] | | | | | | Hospital Admitting | | | | | | Desk Located on the | | | | | | 9th floor | | | | | | [place], [place] | | | | | | [address] | | | +--------+ + + + [...]
--- OUTSIDE RECORDS SUMMARY | ~2019-10-22 | XMS | Encounter Summary ---
Demographics + + + | Address | [address] | | | [place] [address] | + + + | Home Phone [...] + | Author | [facility] | + + + | Organization | [facility] | + + + | Address [...] Team Providers + +------+ + | Care Conche Loader And Unloader Name | Role | Phone | + [...] [place] | | | | | leonides [place] for | [facility] | | | | | Health and Healing, | [place], [place] | | | | | [facility] | [address] | | | | | floor [place], [place] | [phone] | | | | | [address] | | | | | | [phone] | | | +--------+ + + + [...] Denies fevers/chills/drainage. A dvised to present to [facility] ED for further evaluation given the substantial risk of infection. In agreement and will present to ED today. Doug Aponte MD Neurosurgery PGY2 [id number] signed by Doug Aponte MD at 07/09/2018 11:55 AM PDTdocumented in th is encounter Plan of Treatment Not on filedocumented as of this encounter Visit Diagnoses Not on filedocumented in this encounter"
--- OUTSIDE RECORDS SUMMARY | ~2019-10-22 | XMS | Encounter Summary ---
Demographics + + + | Address | [address] | | | [place] [address] | + + + | Home Phone | | + + + | Preferred Language | Unknown | + + + | Marital Status | | + + + | Mosque Affiliation | Unknown | + + + | Race | White | + + + | Ethnic Group | Not or | + + + Author + + + | Author | [facility] | | | and [place] | + + + | Organization | [facility] | | | [...] Team Providers + +------+ + | Care Training Mgr Name | Role | Phone | + [...] + + | 10/24/ | Telephone | [facility] | Antoinette Carrizales, | Medication Refill | | 2019 | | CARDIOLOGY [place] | [facility] | | | | | [address] | | | | | | [place] | | | | | | [address] | | | | | | [phone] | | | +--------+ + + + [...]
--- OUTSIDE RECORDS SUMMARY | ~2019-10-22 | XMS | Encounter Summary ---
Demographics + + + | Address | [address] | | | [place] [address] | + + + | Home Phone [...] + + + | Author | [facility] | + + + | Organization | [facility] | + + + | Address [...] Team Providers + +------+ + | Care Breeder Hen Service Technician Name | Role | Phone | [...] | | | | | | | [facility] | | | | | | | [place], | | | | | | | [place] [address] | | | | | | | Phone: | | | | | | | [phone] | | | | | | | Fax: | | | | | | | [phone] | +--------+--------+ + + + + Encounter Details +--------+ + + + + | Date | Type | Department | Care Team | Description | +--------+ + + + + | 10/17/ | Emergency | [facility] Emergency | | | | 2007 | | Department [address] | | | | | | [address] | | | | | | [facility] | | | | | | [place], [place] | | | | | | [address] | | | | | | [phone] | | | +--------+ + + + [...] 2 bhinav Clay - 10/18/2007 1:41 AM [id number] request ed documented in this enco unter Miscellaneous Notes [facility] Abhinav Clay - 10/18/2007 4:07 AM PDTCrew just leaving [facility] [place] [facility] Abhinav Moreau - 10/18/2007 1:43 AM PDTNS notifiedElectronically signed by Abhinav Clay at 1:43 AM [facility]au - 10/18/2007 1:40 AM PDTGroup 18 pagedE lectronically signed by Abhinav Clay at 10/18/2007 1:40 AM [facility] Shabana Clay - 10/18/2007 1:39 AM [...]
--- OUTSIDE RECORDS SUMMARY | ~2019-10-22 | XMS | Encounter Summary ---
Demographics + + + | Address | [address] | | | [place] [address] | + + + | Home Phone [...] Team Providers + +------+ + | Care Game Master Name | Role | Phone | + [...] CORPORATION | | | | | | [address] | | | | | | Nora Funes [facility] | | | | | | [facility], [address] [place] [address] | | | | | | [place], [place] | | | | | | [address] | | | | | | [phone] | | | +--------+ + + + [...]
--- OUTSIDE RECORDS SUMMARY | ~2019-10-22 | XMS | Encounter Summary ---
Demographics + + + | Address | [address] | | | [place] [address] | + + + | Home Phone [...] Providers + +------+ + | Care Photographic Lithographer Name | Role | Phone | + [...] | | of internal | Rd | [place], [place] | | | | | prosthetic | [facility], [place] | [address] | | | | | devices, | [address] | Phone: | | | | | implants and | Phone: | [phone] | | | | | grafts, not | [phone] | Fax: | | | | | elsewhere | Fax: | [phone] | | | | | classified, | [phone] | | | | | | initial | | | | | | | encounter | | | | | | | Procedures | | | | | | | REQUEST TO | | | | | | | SURGERY | | | | | | | MANAGER SIGN | | | | | | | [place] REMOVAL | | | | | | [...] | implanted material | | | | [facility] for | | to surrounding | | | | Health and Healing, | | tissue (HCC) | | | | Building | | (Primary Dx) | | | | floor [place], [place] | | | | | | [address] | | | | | | [phone] | | | +--------+---------+ + + + [...] 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 She tolerated that well. 2 months ago, one of the cranioplasty screws in the fo rehead, broke through the skin. It is not infected but it has to be removed due to risk or i nfection. But she had an FL 2 weeks ago, she had 2 coronary stents placed and is on Plavix a nd aspirin. On the other hand this procedure requires only sedation and local anaesthetic an d is fairly short procedure. We will discuss this with her oxide furnace tender, Dr Chana Luu at [facility] in [facility]. And she will also be seen in our [facility] clinic by an M D. Plan: Contact Dr Luu to discuss the periop management of this patient Schedule Surgery for removal of exposed screw of the forehead under local anaesthesia and s eadation I spent 30 minutes with the patient. Greater than 50% of the time was spent counseling the patient regarding the management plan. Rickie Lane MD NEUROSURGERY AT [facility] [address] Mailcode: [id number] [phone] documented in this encou nter Plan of [...]
--- OUTSIDE RECORDS SUMMARY | ~2019-10-22 | XMS | Encounter Summary ---
Demographics + + + | Address | [address] | | | [place] [address] | + + + | Home Phone [...] | Author | [facility] | | | and [place] | + + + | Organization | [facility] | | | and [...] Team Providers + +------+ + | Care Aquarium Specialist Name | Role | Phone | [...] | RN | | | | | [place], | | | | | | [place] [address] | | | | | | [phone] | | | +--------+ + + + [...]
[~2019-10-22 12:14] MED LIST changes: +ADULT ASPIRIN R81 MG PO; +ALDACTONE25 MG PO; +MACROBID 100 M100 MG PO
--- OUTSIDE RECORDS SUMMARY | 2019-10-22 12:16 | XMS ---
PreManage Notification: GLORIA ADHIKARI Security Sccm Administrator Events No recent Security Events currently on file CRITERIA MET - [facility] - 2 Visits in 30 Days CARE PROVIDERS There are no care providers on record at this time. Matt has no Care Guidelines for this patient. [facility]12 MO.) [facility] NOTE: Visits indicate total known visits. ED/C VISIT TRACKING (12 MO.) 10/22/2019 12:14 [facility] [place] TYPE: Emergency COMPLAINT: - LEFT SWELLING NON INJURY 10/16/2019 19:45 [facility] [place] TYPE: Emergency COMPLAINT: - POSS STROKE 08/08/2019 11:37 [facility] [place] TYPE: Emergency COMPLAINT: - VOMITING INPATIENT VISIT TRACKING (12 MO.) 10/17/2019 01:06 [facility] [place] TYPE: Medical Surgical COMPLAINT: - SMALL BOWEL OBSTRUCTION DIAGNOSES: - Old myocardial infarction - Nicotine dependence, cigarettes, uncomplicated - Do not resuscitate - Emphysema, unspecified - Emphysema, unspecified - Presence of coronary angioplasty implant and graft - Hyperlipidemia, unspecified - Old myocardial infarction - Unspecified Escherichia coli [E. 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 [place] [place] TYPE: Observation COMPLAINT: - MARY DIAGNOSES: - Allergy status to sulfonamides status - 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 designer (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 therapy - Nausea with vomiting, unspecified - Acute kidney failure, unspecified - Other viral enteritis - Allergy status to narcotic agent status - Allergy status to other antibiotic agents status - Essential (primary) hypertension - Nicotine dependence, cigarettes, uncomplicated - Allergy status to other drugs, medicaments and biological sub [email or web address]
== END 2019-10-22 13:39 | disposition home or self-care (01) ==
LOC: ED 12:14
DX: R60.0 Localized edema (principal); I25.2 Old myocardial infarction; J44.9 Chronic obstructive pulmonary disease, unspecified; F17.200 Nicotine dependence, unspecified, uncomplicated; Z88.2 Allergy status to sulfonamides; Z88.5 Allergy status to narcotic agent; Z88.1 Allergy status to other antibiotic agents; Z79.899 Other long term (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 therapy
CPT/HCPCS: 93971; 99284-25

== ENCOUNTER 2020-10-12 19:54 | Observation (INO) | payer MEDICARE ==
[~2020-10-12] VITALS: Ht 149.9 cm; Wt 43.2 kg
[2020-10-12] MEDS ORDERED: VENTOLIN HFA18 GM INH (20:29)
--- NOTE | 2020-10-12 23:50 | NUR ---
TELEPHONE REPORT RECEIVED FROM ED RN YANI, QUESTIONS ANSWERED. AWAITING pt's ARRIVAL TO FLOOR.
--- NOTE | 2020-10-13 00:30 | NUR ---
pt ARRIVES TO MS VIA STRETCHER. INCONTINENT OF URINE, STOOL MIX. ATTENDS CHANGED. pt ABLE TO TRANSFER SELF TO HOSPITAL BED INDEPENDENTLY. TELE 3 PLACED ON pt. ORIENTATION TO ROOM PROVIDED. pt DROWSY, ALERT, ORIENTED. ICE WATER PROVIDED. CALL LIGHT WITHIN REACH.
--- NOTE | 2020-10-13 01:19 | NUR ---
ASSESSMENT COMPLETE, IV SITES X2 FLUSHES EASILY AND WNL. 500MLS BOLUS INFUSING VIA LEFT AC. pt A/OX4, VSS. TELE#[address], SINUS RHYTHM. pt DENIES CHEST PAIN AND SOB. 3LNC IN PLACE. OCCASIONAL COUGH NOTED, NO DISTRESS. NICOTINE PATCH APPLIED TO RIGHT SHOULDER AND DATED. NO FURTHER NEEDS, CALL LIGHT IN REACH.
--- NOTE | 2020-10-13 02:17 | NUR ---
500MLS LR BOLUS COMPLETE, D5LR MAINTENANCE FLUIDS INFUSING AT 100MLS/HR, SITE REMAINS WNL. pt AWOKE TO VOICE, DENIES NEEDS. 3LNC REMAINS IN PLACE. RR EVEN AND UNLABORED WITH OCCASIONAL COUGH. TELE#[address], HR 90'S. CALL LIGHT IN REACH.
--- NOTE | 2020-10-13 03:51 | NUR ---
pt RESTING IN BED, 3LNC IN PLACE. RR EVEN AND UNLABORED. NO DISTRESS NOTED. IV FLUIDS INFUSING PER MD ORDERS, IV SITE WNL. CALL LIGHT IN REACH AND BED ALARM ON.
--- NOTE | 2020-10-13 05:58 | NUR ---
IN ROOM TO ROUND ON pt, pt RECENTLY UP FROM [facility] [facility] WITH TRACK INSPECTING SUPERVISOR BAILEY AND MARCELL STATON. INCONTINENT OF BM AND URINE. PER TRACK INSPECTING SUPERVISOR, UNABLE TO COLLECT STOOL SAMPLE BM IS MIXED WITH URINE. WILL MONITOR AND ATTEMPT TO COLLECT SAMPLE AT NEXT BM. ORTHO VS COLLECTED AND DOCUMENTED. pt REPORTED SOME SOB PRIOR TO ORTHO VS, ENCOURAGED TO DEEP BREATHE, THERAPEUTIC COMMUNICATION PROVIDED. TITRATED FROM 3LNC TO 5LNC BRIEFLY, AFTER SEVERAL MINUTES, TITRATED BACK TO BASELINE 3LNC. ASSESSMENT COMPLETE, NO NEW CHANGES OR CONCERNS. pt NOW RESTING IN BED, REPORTS SOB IMPROVED. NO DISTRESS NOTED. NONPRODUCTIVE COUGH NOTED pt STATES, "I GET LIKE THIS AT HOME TOO". NO FURTHER NEEDS, CALL LIGHT IN REACH.
--- NOTE | 2020-10-13 07:42 | NUR ---
REPORT RECIEVED FROM BUFF WHEEL FABRICATOR RNMODESTO.
--- NOTE | 2020-10-13 08:02 | NUR ---
Patient vitals and I&Os are done. Patient just recieved breakfast and has started eating. There are no futher requsts at this time.
--- NOTE | 2020-10-13 08:04 | NUR ---
Call light is in reach of patient.
--- NOTE | 2020-10-13 09:15 | NUR ---
MORNING ASSESSMENT DONE. PATIENT REPORTS NO PAIN OR NAUSEA AND IS FEELING BETTER TODAY. PATIENT HAD GOOD APPETITE FOR BREAKFAST. PATIENT IS WEARING 3L OF CHRONIC O2 AND HAS A PRODUCTIVE COUGH. PATIENT DENIES OTHER NEEDS AT THIS TIME.
[2020-10-13] MEDS ORDERED: SYMBICORT 16010.2 GM INH (10:13)
[2020-10-13] MEDS ORDERED: ATROVENT HFA12.9 GM INH (10:14)
--- NOTE | 2020-10-13 10:45 | NUR ---
Pt shared many details of family life. Stated she continues to miss her ( 7 years) and struggles with bitterness at his loss. Talked of large supportive family living locally who help when needed. Expressed satisfaction with care and hope for discharge soon. We talked of fior and possibility of finding comfort in that fior. Prayed for peace and healing.
--- NOTE | 2020-10-13 10:58 | NUR ---
PATIENT IS RESTING IN BED, DENIES OTHER NEEDS.
--- NOTE | 2020-10-13 12:20 | NUR ---
ORTHOSTATIC VITALS DONE, PATIENT TOLERATED ACTIVITY WELL, NO DIZZINESS NOTED.
--- NOTE | 2020-10-13 14:29 | NUR ---
Patient vitals & I&Os are done. The call light is in reach and there are no requsts at this time.
--- NOTE | 2020-10-13 15:57 | NUR ---
Attempted to see pt at 11:00 and she was in the bathroom. Returned to room now and she is receiving an aerosol treatment. Will attempt to see later.
--- NOTE | 2020-10-13 17:02 | NUR ---
Patient vitals, I&Os are done. Patient is eating dinner and will like a shower soon. Shower supples are in the bathroom ready. Call light is in reach. There are no requests at this time. Patient was encouraged to call when done with dinner so we can assist her to the shower.
--- NOTE | 2020-10-13 17:39 | NUR ---
RN was notified of the patient's low blood pressure.
--- NOTE | 2020-10-13 18:40 | NUR ---
PATIENT SALINE LOCKED FOR SHOWER.
--- NOTE | 2020-10-13 19:15 | NUR ---
SHIFT REPORT RECEIVED FROM MUKESH GILL AT BEDSIDE. pt AWAKE AND RESTING IN BED, 3LNC IN PLACE. IV FLUIDS INFUSING PER MD ORDERS, SITE WNL. NO NEEDS AT THIS TIME, CALL LIGHT IN REACH.
--- NOTE | 2020-10-13 19:17 | NUR ---
Patient had an assistive shower, PA1. Patient was very involved in her care during the shower. Patient cough violently during the shower. Water temperature was changed to a comoftable temperature for her which was about medium heat. The patient was dried from head to toe and the patients hair was dried thoroughly and warm blankets were given to help her feel warmer. This helped lessen the episode of violent coughing. Patient call light is in reach and there are no other requests from her at this time. I told her if she needs her blankets to be replaced after they cool, to feel free to call for warm ones.
--- NOTE | 2020-10-13 23:00 | NUR ---
ASSESSMENT COMPLETE, SCHEDULED NICOTINE PATCH REMOVED (SEE EMAR). VSS, pt ON 3LNC-BASELINE. CHRONIC COUGH NOTED, LUNG SOUNDS CLEAR OVERALL. NO DISTRESS OR SOB VERBALIZED AT THIS TIME. pt IN BED, DENIES PAIN AND NAUSEA. NO ADDITIONAL NEEDS. CALL LIGHT IN REACH.
--- NOTE | 2020-10-14 02:00 | NUR ---
pt RESTING IN BED, EYES CLOSED. RR EVEN AND UNLABORED. NO DISTRESS NOTED, CALL LIGHT IN REACH.
--- NOTE | 2020-10-14 03:12 | NUR ---
PER MAHENDRA FROM LAB, C-DIFF SAMPLE COLLECTED ON 10/13/20 ON DAYSHI.
--- NOTE | 2020-10-14 03:34 | NUR ---
CALL LIGHT ANSWERED. SBA TO BEDSIDE COMMODE. PATIENT VOIDED 400ML. CHANGED PULL UPS. PATIENT IS BACK IN BED. DENIES FURTHER NEEDS AT THIS TIME.
--- NOTE | 2020-10-14 03:59 | NUR ---
NEW BAG IV FLUIDS HUNG AND INFUSING PER MD ORDERS, IV SITE WNL. ASSESSMENT COMPLETE. NO NEW CHANGES OR CONCERNS. CALL LIGHT IN REACH.
--- NOTE | 2020-10-14 06:18 | NUR ---
OTHRO VS COMPLETE, pt BACK IN BED AFTER VOIDING. NO FURTHER NEEDS, CALL LIGHT IN REACH.
--- NOTE | 2020-10-14 08:56 | NUR ---
PT WAS IN BED WITH BREAKFAST ON THE SIDE TABLE. PT WAS OFFERED A WARM WASHCLOTH FOR FACE. WHITEBOARD WAS UPDATED. CALL LIGHT IS WITHIN REACH. NO FURTHER NEEDS AT THIS TIME.
--- NOTE | 2020-10-14 11:00 | NUR ---
Pt lives alone and states she is a . Lives in a 1 story home without steps. Has ramp into her home. Has 02 at 3l at home and a nebulizer and states she has plenty of medication for nebulizer. Pt plans on dc to home today and son will pick her up.
[2020-10-14] MEDS ORDERED: CENTRUM SILVER1 EAC5 PO (11:13)
[2020-10-14] MEDS ORDERED: ALBUTEROL2.5 MG/3 M INH (11:13)
--- NOTE | 2020-10-14 11:23 | NUR ---
MED REC COMPLETE
--- NOTE | 2020-10-14 11:25 | NUR ---
Patient vitals, I&Os are complete. Patient is talking with RNs. Call light is in reach.
--- NOTE | 2020-10-14 14:29 | EKG ---
[facility] [address] [place] [place] [address] Signed Normal sinus rhythm Possible Inferior infarct (cited on or before 16-OCT-2019) Anterolateral infarct (cited on or before 27-OCT-2015) Abnormal ECG When compared with ECG of 23-JAN-2020 18:37, Significant changes have occurred Confirmed by MAIRA NYE MD ([id number]) on 10/14/2020 2:28:59 PM Electronically Signed By: MAIRA NYE MD 10/14/20 1429 PATIENT NAME: GLORIA ADHIKARI Electrocardiogram DATE OF : 48 PHYSICIAN: MAIRA NYE MD REPORT #: [id number] REPORT IS CONFIDENTIAL AND NOT TO BE RELEASED WITHOUT AUTHORIZATION
== END 2020-10-14 11:45 | disposition home or self-care (01) ==
LOC: ED 19:54 → MS 19:55
PROVIDERS: ADMIT Internal Medicine; ATTEND Internal Medicine
DX: I95.1 Orthostatic hypotension (principal); E86.0 Dehydration; R19.7 Diarrhea, unspecified; F17.210 Nicotine dependence, cigarettes, uncomplicated; I25.10 Atherosclerotic heart disease of native coronary artery without angina pectoris; E78.5 Hyperlipidemia, unspecified; J43.1 Panlobular emphysema; I10 Essential (primary) hypertension; J96.11 Chronic respiratory failure with hypoxia; Z66 Do not resuscitate; Z88.1 Allergy status to other antibiotic agents; Z88.2 Allergy status to sulfonamides; Z88.5 Allergy status to narcotic agent; Z88.8 Allergy status to other drugs, medicaments and biological substances; Z20.822 Contact with and (suspected) exposure to COVID-19
CPT/HCPCS: 71045; 80048; 80053; 81001; 83735; 84484; 85007; 85025; 93005; 93010; 94640; 94760; 96365; 96372; C9803; G0378; J1650; J3475; J7030; J7121; U0003

== ENCOUNTER 2020-10-14 21:11 | Inpatient (IN) | payer MEDICARE ==
[~2020-10-14] VITALS: Ht 149.9 cm; Wt 47.2 kg
--- NOTE | ~2020-10-14 | DS ---
[facility] [address] [place], [place] [address] Draft ADMISSION DATE: 10/16/2020 DISCHARGE DATE: 11/07/2020 REASON FOR ADMISSION: This 70-year-old white woman has a longstanding advanced COPD for which she uses home oxygen at 3 L nasal cannula. She was discharged the day prior to current admission, having returned late in the night with abdominal distention and complaints of pain. A CT scan was performed under the direction of Dr. Lamb showing a massively dilated small bowel and stomach highly consistent with small bowel obstruction. I was called about midnight and recommended nasogastric tube decompression and direct admission to the hospital. Prior to my morning evaluation, I was called as the patient required a rapid response team for extreme shortness of breath. She was found to have a significant respiratory distress requiring more than 15 L nasal cannula oxygen non-rebreathing facemask. She was initiated with BiPAP oxygenation and ultimately stabilized. PERTINENT PHYSICAL EXAM: VITAL SIGNS: At my time of evaluation showed a heart rate of up to 130 with a blood pressure 170/88, pulse oximetry variably between 87-85% on 15 L non-rebreather facemask and respiratory rate of 32-25. There is diminished air flow bilaterally. No evidence of wheezing. Chest x-ray showed a right medial basilar infiltrate. Abdomen was not particularly distended. LABORATORY STUDIES: Her initial evaluation showed white count of 13.3, hematocrit 43.2, platelets 228,000. Electrolytes normal. Creatinine 0.65 with normal liver enzymes and a COVID test, which was negative. HOSPITAL COURSE: Though she had been admitted to the emergency room with small bowel obstruction, her presentation to me in the morning was that of severe extreme hypoxemic respiratory failure. She was transferred to the intensive care unit with BiPAP support and consultation made with Dr. Elizabeth regarding her pulmonary issue. She has longstanding COPD and requirement of home oxygen at 3 L/minute nasal cannula, but does smoke intermittently at home and has had such episodes in the past. With intensive respiratory therapy, but without pushing to actual intubation, which was certainly a consideration. She did have improvement of her pulmonary problem, decreased PATIENT NAME: GLORIA ADHIKARI DISCHARGE SUMMARY DATE OF : 48 REPORT #: [id number] PHYSICIAN: SMOOTH VERDUZCO MD PCP: AYDIN MARTINEZ PA-C REPORT IS CONFIDENTIAL AND NOT TO BE RELEASED WITHOUT AUTHORIZATION [facility] [address] [place], [place] [address] Draft heart rate with markedly elevated arterial blood gas CO2 of 72. The BiPAP device did allow for "breathing off" or excessive CO2 and she returned to a more acceptable situation with high-flow face mask oxygen. A chest x-ray was performed, which showed a medial basilar dense infiltrate. Mindful of her relatively precarious pulmonary situation rather than intubation with bronchoscopy for clearance of the bronchial segment, she was begun on progressive respiratory therapy to the affected right lower lobe of the lung. It was noted that she had been treated conservatively (non-operatively) in the past for bowel obstruction by Dr. Barrera. With a considerable amount of effort from a pulmonary standpoint, she continued to improve. Notably, her bowel obstruction symptoms seem to have resolved with unintended bowel rest. A nasogastric tube was not replaced. The patient had persistent requirement of high levels of oxygen and BiPAP and on that basis, a CT scan was performed to assess for pulmonary embolus on the direction of Dr. Elizabeth. There was no such embolus, but there was definitely a left medial basilar lobar lung collapse suggestive of mucus plug or similar such finding. Persistent Mucomyst therapy, chest percussion and intensive respiratory therapy did allow for improvement of this. The patient had episodes of anxiety-related hypoxemia intermittently requiring the BiPAP device, but generally tolerating the face mask oxygen. Most notably, her bowel obstruction seemed to have clinically resolved, which was her reason for admission to begin with. She was begun on an oral intake and ultimately tolerating solid food and feeling quite well. She was weaned down to approximately 4-5 L of nasal cannula oxygen, which is close to her baseline requirement. High-dose steroids were initiated as well. Mucinex was initiated. A repeat chest CT scan was performed, which showed good clearing of the right basilar atelectasis having undergone an intensive respiratory therapy including percussive therapy. Care was then transferred to the hospitalist team at that point, Dr. Arellano as she seemed to have no further surgical issue, only her chronic underlying pulmonary problem. Promptly thereafter, however, she had recurrence of symptoms of small bowel obstruction including significant abdominal distention. Antibiotic therapy was changed, include cefepime to cover Pseudomonas that may be related to bronchiectasis. A CT scan of the abdomen did confirm findings highly consistent with small bowel obstruction in the low pelvis. The bladder was quite markedly distended as well. After consideration of the risks of operation with her advanced pulmonary disease, she did undergo a laparotomy on October 25, 2020. She was found to have considerable adhesion-related obstruction in the distal small bowel. The operation involved extensive adhesiolysis in freeing of small bowel loops, which was prolonged, complicated, and difficult. Decompressive enterostomy was also undertaken PATIENT NAME: ONOFREGLORIA LOMAX DISCHARGE SUMMARY DATE OF : 48 REPORT #: [id number] PHYSICIAN: SMOOTH VERDUZCO MD PCP: AYDIN MARTINEZ PA-C REPORT IS CONFIDENTIAL AND NOT TO BE RELEASED WITHOUT AUTHORIZATION [facility] [address] [place], [place] [address] Draft and a decompressive gastrostomy tube (22-Bengali GRANT tube) was placed as it was thought unlikely that she would have prompt recovery of her small bowel given the extent of dissection and very unlikely to tolerate a nasogastric tube in a prolonged way. This did prove to be quite beneficial. She was able to be extubated promptly, which was somewhat surprising, but most welcome. Her breathing improved overall and although occasionally desaturating due to anxiety and so forth had progressive unsteady improvement. She was noted on October 27, 2020 to have persistent rebecca bleeding at the umbilicus. This was managed with oversewing. There was no other finding of leakage or any other issue at that time. She had somewhat delayed recovery of her bowel function and was rather prone to anxiety attacks. Discharge planning suggested benefit from an extended care facility, but she was quite adamant against that initially. She was nearing a plan for discharge to home having recovered a bowel function with two bowel movements a day and then was noted to have egress of serosanguineous fluid from her incision on November 02, 2020. Imaging study of CT scan was once again performed this time showing what appeared to be a superior incisional fascial dehiscence with possible evisceration of small bowel. This study was on November 02, 2020. On November 03, she underwent exploration of the wound (laparotomy) with peritoneal lavage and culture of the abdominal fluid and closure of the fascial dehiscence with interrupted PDS suture as well as placement of a right internal jugular central venous catheter and application of wound VAC device. Following that she had prompt recovery of her bowel function, was tolerating regular diet and pain was well controlled. The wound VAC is anticipated to be changed upon her appearance at the [facility] in [place], [place] ([facility]). At the time of discharge, she is tolerating a regular diet. She has supplemental oxygen at 3-4 L nasal cannula continuously with a plan for BiPAP device at nighttime as needed. The wound VAC will be in place for approximately two weeks or so, at that point, it can easily be discontinued I would think. I will plan to see her back in followup in about four weeks in the office setting. DISCHARGE MEDICATIONS: Include: 1. Flagyl 500 mg p.o. b.i.d. #10. 2. Albuterol nebulizer q.i.d. as needed. 3. Albuterol 1-2 puffs inhaler q.6 hours as needed. 4. Atorvastatin 80 mg p.o. daily. 5. Metoprolol 12.5 mg p.o. b.i.d. 6. Tylenol 1000 mg p.o. q.6 hours as needed for pain. 7. Mucinex 600 mg two tablets p.o. b.i.d. 8. Loperamide 2 mg p.o. q.i.d. p.r.n. diarrhea. 9. Famotidine 20 mg p.o. b.i.d. #60. PATIENT NAME: GLORIA ADHIKARI DISCHARGE SUMMARY DATE OF : 48 REPORT #: [id number] PHYSICIAN: SMOOTH VERDUZCO MD PCP: AYDIN MARTINEZ PA-C REPORT IS CONFIDENTIAL AND NOT TO BE RELEASED WITHOUT AUTHORIZATION [address] [address] Draft 10. Discontinued medicines prior to discharge will include amoxicillin, heparin, morphine, and oxycodone. If necessary, Robitussin cough syrup can be administered, but that has not been a problem for her lately. DISCHARGE DIAGNOSES: 1. Small bowel obstruction. 2. Acute on chronic hypoxemic respiratory failure (recurrent). 3. Status post laparotomy with lysis of adhesions for small bowel obstruction and placement of decompressive gastrostomy tube. 4. 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 5. Dyslipidemia. 6. Anxiety. 7. Hypertension. 8. Longstanding end-stage chronic obstructive pulmonary disease. MD [facility]/NGUYEN /[id number] cc: MD Kylie Ruiz MD Brian Piteo, MD Chloe K Norris, PA-C Copies: MAIRA NYE MD, CYNTHIA MD PITEO, BRIAN DO PATIENT NAME: GLORIA ADHIKARI DISCHARGE SUMMARY DATE OF : 48 REPORT #: [id number] PHYSICIAN: SMOOTH VERDUZCO MD PCP: AYDIN MARTINEZ PA-C REPORT IS CONFIDENTIAL AND NOT TO BE RELEASED WITHOUT AUTHORIZATION [address] [place] [address] Draft AYDIN MARTINEZ PA-C ~ PATIENT NAME: GLORIA ADHIKARI DISCHARGE SUMMARY DATE OF : 48 REPORT #: [id number] PHYSICIAN: SMOOTH VERDUZCO MD PCP: AYDIN MARTINEZ PA-C REPORT IS CONFIDENTIAL AND NOT TO BE RELEASED WITHOUT AUTHORIZATION
[~2020-10-14 21:11] MED LIST changes: +ALBUTEROL2.5 MG/3 M INH; +ATROVENT HFA12.9 GM INH; +CENTRUM SILVER1 EAC5 PO; +SYMBICORT 16010.2 GM INH; +VENTOLIN HFA18 GM INH
--- OUTSIDE RECORDS SUMMARY | 2020-10-15 00:53 | XMS ---
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 [facility] VISIT COUNT (12 MO.) 4 [facility] TOTAL 4 NOTE: Visits indicate total known visits. 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 (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 therapy - Allergy status to other antibiotic agents - Other specified soft tissue disorders - Allergy status to sulfonamides - Nicotine dependence, unspecified, uncomplicated - Old myocardial infarction 10/16/2019 19:45 [facility] TYPE: Emergency COMPLAINT: - POSS STROKE INPATIENT VISIT TRACKING (12 MO.) 10/12/2020 19:55 [facility] TYPE: Observation COMPLAINT: - SYNCOPE DIAGNOSES: - Allergy status to narcotic agent - Nicotine dependence, cigarettes, uncomplicated - Dehydration - Allergy status to other drugs, medicaments and biological substances - Do not resuscitate - Allergy status to sulfonamides - Essential (primary) hypertension - Atherosclerotic heart disease of andreafski coronary artery without angina pectoris - Orthostatic hypotension - Diarrhea, unspecified - Panlobular emphysema - Hyperlipidemia, unspecified - Syncope and collapse - Allergy status to other antibiotic agents - Chronic respiratory failure with hypoxia 10/17/2019 01:06 [facility] TYPE: Medical Surgical COMPLAINT: - SMALL BOWEL OBSTRUCTION DIAGNOSES: - Old myocardial infarction - Nicotine dependence, cigarettes, uncomplicated - Do not resuscitate - Emphysema, unspecified - Emphysema, unspecified - Presence of coronary angioplasty implant and graft - Hyperlipidemia, unspecified - Old myocardial infarction - Unspecified Escherichia coli [E. coli] as the cause of diseases classified elsewhere - Other usp (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 therapy - Presence of cerebrospinal fluid drainage device - Contact with and (suspected) exposure to other viral communicable diseases - Other usp (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 therapy - Presence of cerebrospinal fluid drainage device - Contact with and (suspected) exposure to other viral communicable diseases - Allergy status to other drugs, medicaments and biological substances - Atherosclerotic heart disease of andreafski coronary artery without angina pectoris - Do not resuscitate - manager intermediate (current) use of aspirin - Nicotine dependence, cigarettes, uncomplicated - Allergy status to sulfonamides - Presence of coronary angioplasty implant and graft - Allergy status to sulfonamides - Dehydration - Allergy status to other drugs, medicaments and biological substances - Unspecified Escherichia coli [E. coli] as the cause of diseases classified elsewhere - Allergy status to narcotic agent - Allergy status to other antibiotic agents - Urinary tract infection, site not specified - Intestinal adhesions [bands], unspecified as to partial versus complete obstruction - Chronic respiratory failure with hypoxia - Allergy status to narcotic agent - Dehydration - Chronic respiratory failure with hypoxia - Atherosclerotic heart disease of andreafski coronary artery without angina pectoris - longterm (current) use of aspirin - Urinary tract infection, site not specified - Allergy status to other antibiotic agents - Hyperlipidemia, unspecified [email or web address]
--- NOTE | 2020-10-15 02:52 | NUR ---
Awake, sitting up in bed. O2 3LNC, chronic, Lungs with crackles at bases and L sided exp wheezing. Wearing a nasal plug. no further nasal bleeding NGT R nare to LIWS scant amount of drainage. bruising over arms from previous IV. Up to BSC, voided, increaed SOB with exertion. stated LBM 10/14
--- NOTE | 2020-10-15 06:04 | NUR ---
PT ADMITTED EARLIER THIS AM FROM ED, SBO, LBM WAS 10/14, NGT IN PLACE, DRAINING SCANT AMOUNT OF PINK/PURPLE TINGED DRAINAGE. PT HAS DRANK GRAPE JUICE PRIOR TO ADMIT. NGT TO LIWS. LUNGS L SIDE WITH EXP WHEEZING T/O. 3L O2 CHRONIC, SOB WITH EXERTION NOTED. USED BSC, VOIDED, , NPO, DOES OWN MOUTH CARE. IVF INFUSING W/O PROBLEMS. COOPERATIVE, ALERT AND ORIENTED. USED CALL LIGHT. NO C/O CP
--- NOTE | 2020-10-15 07:06 | NUR ---
5551 - pattern maker found pt w/o O2, gasping for air, sats low 70's, had pulled NGT out, back to bed, O2 increaesd and placed on NRB, rapid response called. EKG obtained, irreglar heart rate, sats now mid 90's and pt breathing better. Dr Leroy notified, via phone, no answer, message left at [phone]
--- NOTE | 2020-10-15 07:13 | NUR ---
tele#[address], 10 LNRB mask sats 86-90%. resp 30 at thist nella[address] CPOX in place, Bed alarm on. NGT pulled accidentally by pt. EKG done by RT.
--- NOTE | 2020-10-15 07:30 | NUR ---
AT 0700 A RAPID RESPONSE WAS CALLED BY NIGHT RN. AT THIS TIME PT IS STILL TRI-POTTING IN BED AND HR >130 RR >35 ON 15L O2 VIA MASK. MD VERDUZCO WAS CALLED BUT NOT REACHED BY NIGHT RN. WILL CALL AGAIN NOW.
--- NOTE | 2020-10-15 08:00 | NUR ---
HEARD IV ALARMING. PT SITTING ON BED, LOOKING AT HER PHONE, TRIPOD POSITION; NOTED URINE IN THE COMMODE, WHICH WAS IN CENTER OF ROOM BY THE CLOSET. PT WITHOUT HER OXIMASK, IV STRETCHED, NG TUBE IN NOSE, BUT APPEARED TO BE LONGER THAN UPON ADMISSION. QUICKLY TO PT SIDE, AND PUT HER OXYMASK ON, O2 SATS 72, PT VALDIVIA, AND DUSKY, ONE WORD RESPONSE. TURNED O2 UP TO SEE IF PT COULD RECOVER. CALLED FOR GUM WORKER HELP, AND REQUESTED PT PRIMARY RN TO COME TO ROOM WHEN SHE RETURNED TO NURSES STATION. FRANCHESKA RN, IN TO ASSIST, PT CONTINUE TO SAT IN THE 70'S. THIS OCCURRED @ 0655. (CHARTING AT THIS TIME THE EVENT THAT OCCURRED.). VITALS TAKEN, NONREBREATHER MASK AT 15L PLACED, NG TUBE WAS NOT IN CORRECT PLACEMENT, STAFF PULLED. IV DID REMAIN PATENT, WITH IV FLUIDS INFUSING. RAPID RESPONSE WAS CALLED; RT, CCU AND OTHER STAFF TO ROOM TO ASSIST. EKG WAS DONE; PRIMARY RN ATTEMPTED TO CALL DR VERDUZCO, MESSAGES LEFT. CPOX, TELE PLACED TO MONITOR. TACHYCARDIA NOTED IN THE 135'S AND HIGHER. PT COLOR MUCH IMPROVED WHEN THIS RN LEFT ROOM AT 0715; JAZMYNE, RN IN ROOM, SHE WILL BE PT PRIMARY RN.
--- NOTE | 2020-10-15 08:30 | NUR ---
MD VERDUZCO WAS CALLED AND AN ORDER FOR A CHEST X-RAY, 1MG IV MORPHINE, HOSPITALIST CONSULT WAS RECEIVED AND DONE. PT NOW ALSO IS ON BI-PAP. ABG TO BE DONE ALSO. PT NOW LOOKS BETTER AND HER BREATHING HAS SETTLED AT LOT. PT TO BE TRANSFERED TO ICU AT SOME POINT THIS MORNING. WILL CONTINUE TO MONITOR.
--- NOTE | 2020-10-15 09:20 | NUR ---
CALL TO SON CIARAN, GAVE UPDATES ON PATIENT STATUS AND TRANSFER TO CCU.
--- NOTE | 2020-10-15 10:30 | NUR ---
PT DOING BETTER AT THIS TIME. WAITING ON CCU BED. NO NEW CONCERNS NOTED AT THIS TIME.
--- NOTE | 2020-10-15 11:55 | NUR ---
PT TRANSPORTED TO CCU WITH ASSISTANCE FROM THIS RN, ALEKSANDAR GILL AND LAWANDA, RT. PT REMAINS ON BIPAP FOR TRANSFER. LENIN PTS RN, AT BEDSIDE AND STATES SHE HAS RECEIVED REPORT FROM PTS PRIMARY RN. PT NOTED TO BE SOILED, MAKAYLA CARE DONE WITH CAREPROVIDER HELP X2. PT REPOSITIONED, LYING ON BACK WITH HEAD OF BED ELEVATED TO 30 DEGREES, SUPPORTED WITH PILLOWS. PTS PRIMARY CARE RN UPDATED ON PTS TRANSFER. BIPAP REMAINS IN PLACE. LENIN PTS RN, AT BEDSIDE.
--- NOTE | 2020-10-15 12:26 | NUR ---
PT MOVED TO CCU ROOM 127. AT TIME PT MOVED TO ROOM, ATTENDS WITH STOOL AND URINE. ATTENDS CHANGED. NOTED BREAK DOWN ON PTS COXXYX AND INTO GROIN. TURNED PT TO LEFT SIDE. PT ON BIPAP ON TIME OF ARRIVAL TO ROOM. RT IN TO SET THAT UP. PT APPEARS COMFORTABLE ON BIPAP AT THIS TIME. PTS SON IN ROOM TO VISIT HER.
--- NOTE | 2020-10-15 12:51 | NUR ---
DR VERDUZCO IN TO SEE PT. ORDER FOR PT TO HAVE A KUB XRAY TODAY. NO OTHER ORDERS.
--- NOTE | 2020-10-15 13:17 | HP ---
[facility] [address], [place] [address] Signed ADMISSION DATE: 10/15/2020 TIME: 8:00 a.m. PROBLEM: Small bowel obstruction, recent discharge from hospital for syncope and diarrhea. HISTORY OF PRESENT ILLNESS: This 70-year-old white woman has longstanding advanced COPD for which she uses home oxygen. She was discharged yesterday, but returned later in the night yesterday with abdominal distention and complaints of pain. A CT scan was performed under the direction of Dr. Lamb, which showed massively dilated small bowel and stomach highly consistent with small bowel obstruction. I was called about midnight with this and recommended nasogastric tube be placed and direct admission to the hospital. This morning before my in person evaluation I was called that she was having extreme shortness of breath. The nasogastric tube that had been placed in the ER was not in place at that point and she was in significant respiratory distress requiring 15 L of oxygen in a non rebreathing face mask. She had been initiated with BiPAP oxygenation and two albuterol nebulizers have been infused. The patient remains in significant respiratory distress at this time. 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 ALLERGIES: She has allergies to codeine, Cipro, Betadine, and thiopental. Her discharge diagnosis recently as noted from Dr. Lemus's discharge summary was orthostatic syncope, but according to nurses highly related to her episodic removal of her supplemental oxygen...she is on home oxygen for which she takes 3 L continuously. PHYSICAL EXAMINATION: Electronically Signed By: SMOOTH VERDUZCO MD 10/15/20 1317 PATIENT NAME: GLORIA ADHIKARI HISTORY AND PHYSICAL DATE OF : 48 REPORT #: [id number] PHYSICIAN: SMOOTH VERDUZCO MD PCP: MARY MARTINEZ PA-C REPORT IS CONFIDENTIAL AND NOT TO BE RELEASED WITHOUT AUTHORIZATION [facility] [address], [place] [address] Signed VITAL SIGNS: On exam, she has a respiratory difficulty at this time. Vital signs had shown a heart rate of 170/88, a pulse of up to 130 with pulse oximetry variably between 87 and 85%. RR at 32 to 25 LUNGS: I do not hear air flow in her lungs particularly. Chest x-ray has been obtained and images not yet available and results are unavailable. ABDOMEN: Not examined at this time. She has a thin body habitus and have typical appearance of COPD. Sitting upright and ASSESSMENT: The patient upon review of her CT scan clearly has evidence of small bowel obstruction, but her respiratory distress this morning is of uncertain etiology likely related to exacerbation for a long-standing rather severe COPD. Less likely would be a pulmonary embolism but of course is a consideration. Notably her lab studies at 10:00 p.m. last night include a white count of 13.3, hematocrit of 43.2 and platelets 228,000. Electrolytes are essentially normal. Creatinine of 0.65. Liver enzymes normal. Urinalysis which had not been received and a COVID test, which was negative. PLAN: She will likely need transfer to the intensive care unit and uncertain if she will require intubation for oxygenation. We will assess the results of her BiPAP and infusion of albuterol as in-line administration. Consultations undertaken with Dr. Elizabeth, hospitalist now on duty. Continued bipap will be needed and if failure of this to improve her situation, ventilator support. Smooth Verduzco MD /SWAPNILL /[id number] cc: MD Mary Damon PA-C Lohith Veerappa Reddy, MD Electronically Signed By: SMOOTH VERDUZCO MD 10/15/20 1317 PATIENT NAME: GLORIA ADHIKARI HISTORY AND PHYSICAL DATE OF : 48 REPORT #: [id number] PHYSICIAN: SMOOTH VERDUZCO MD PCP: MARY MARTINEZ PA-C REPORT IS CONFIDENTIAL AND NOT TO BE RELEASED WITHOUT AUTHORIZATION [facility] [address] [place] [id number] Signed Copies: DAQUAN ELIZABETH CHLOE K PA-C REDDY, LOHITH VEERAPPA MD ~ Electronically Signed By: SMOOTH VERDUZCO MD 10/15/20 1317 PATIENT NAME: GLORIA ADHIKARI HISTORY AND PHYSICAL DATE OF : 48 REPORT #: [id number] PHYSICIAN: SMOOTH VERDUZCO MD PCP: MARY MARTINEZ PA-C REPORT IS CONFIDENTIAL AND NOT TO BE RELEASED WITHOUT AUTHORIZATION
--- NOTE | 2020-10-15 14:11 | NUR ---
PT TURNED TO RIGHT SIDE. BARRIER CREAM APPLIED TO BUTTOCK AND COXXYX. WHEN GIVING IV SOLUMEDROL, PT BEGINS TO YELL THAT IV TO LEFT FOREARM, PREVIOUSLY PLACED, IS HURTING. SOLUMEDROL HAD ALREADY BEEN ADMINISTERED AT THAT TIME. IV REMOVED, WRAPPED IN WARM BLANKET. SWELLING IS NOTED TO AREA. PT REPORTS PAIN HAS IMPROVED TO AREA.
--- NOTE | 2020-10-15 15:06 | NUR ---
SPOKE WITH STAFF. PATIENT ON BIPAP AND THEY FEEL SHOULD NOT BE STIMULATED AT THIS TIME. CM WILL FOLLOW LATER.
--- NOTE | 2020-10-15 16:10 | NUR ---
IN TO TURN PT IN BED. PTS ATTENDS MINIMALLY WET. PT STATES SHE NEEDS TO VOID. UP TO BED SIDE COMMODE WITH VERY LITTLE ASSIST. PT DOES NOT VOID. NEW ATTENDS PLACED AND PT UP TO SIT IN CHAIR. PT JOKING WITH STAFF AND STATING SHE IS FEELING BETTER BEING UP.
--- NOTE | 2020-10-15 16:46 | NUR ---
PTS SON IN ROOM TO VISIT
--- NOTE | 2020-10-15 17:21 | NUR ---
MED REC COMPLETE
--- NOTE | 2020-10-15 17:34 | NUR ---
PT REQUESTED TO HAVE BIPAP OFF FOR A BIT. PLACED ON OXYMASK. PT TOLERATING WELL. VISITING WITH SON.
--- NOTE | 2020-10-15 18:07 | NUR ---
PT REPOSITIONED IN BED. PLACED BACK ON BIPAP. DR VERDUZCO IN ROOM
--- NOTE | 2020-10-15 19:10 | NUR ---
REPORT GIVEN TO GLOBAL CTO RN
--- NOTE | 2020-10-15 20:30 | NUR ---
SHIFT REPORT RECEIVED FROM ALEKSANDAR PHELPS. ASSESSMENT COMPLETED. PT WOKE EASILY WHEN SPOKEN TO AND ANSWERS ORIENTATION QUESTIONS APPROPRIATELY. DENIES PAIN. LUNGS CLEAR, DIM IN BASES, BIPAP 12/6 AT 55% IN PLACE. HR REGULAR. BOWEL TONES RARE, DENIES NAUSEA. SKIN GROSSLY INTACT WITHOUT EDEMA. IV PATENT, FLUIDS INFUSING WNL. PT DENIES NEEDING TO USE BATHROOM, ATTENDS DRY AT THIS TIME. PT DENIES NEEDS AT THIS TIME, CALL LIGHT WITHIN REACH.
--- NOTE | 2020-10-15 20:50 | NUR ---
PT'S SON HERE TO VISIT PT.
--- NOTE | 2020-10-15 22:09 | NUR ---
IN TO GIVE SCHEDULED SOLU-MEDROL. PT UP TO BSC WITH SBA TO ATTEMPT TO VOID, WAS UNABLE AT THIS TIME. BACK TO BED. WARM BLANKET PROVIDED, LIMBS ELEVATED ON PILLOWS. PT STATES SHE IS HUNGRY, REMINDED HER THAT SHE IS NPO DUE TO HER SBO. PT DENIES FURTHER NEEDS, CALL LIGHT WITHIN REACH.
--- NOTE | 2020-10-15 22:33 | EKG ---
[facility] [address] [facility] [place] [address] Signed Sinus tachycardia Right atrial enlargement Left axis deviation Anterolateral infarct (cited on or before 27-OCT-2015) ACUTE MO / STEMI Abnormal ECG When compared with ECG of 12-OCT-2020 19:58, Significant changes have occurred Confirmed by DAQUAN AMBROSIO DO ([id number]) on 10/15/2020 10:33:32 PM Electronically Signed By: DAQUAN AMBROSIO DO 10/15/20 2233 PATIENT NAME: GLORIA ADHIKARI Electrocardiogram DATE OF : 48 PHYSICIAN: DAQUAN AMBROSIO DO REPORT #: [id number] REPORT IS CONFIDENTIAL AND NOT TO BE RELEASED WITHOUT AUTHORIZATION
--- NOTE | 2020-10-16 00:17 | NUR ---
ASSESSMENT COMPLETED AND UNCHANGED. REMAINS ON BIPAP 01/26 @ 55%. ATTENDS DRY, PT DENIES NEEDING TO USE BATHROOM AT THIS TIME. PT REPOSITIONING SELF IN BED INDEPENDENTLY. DENIES FURTHER NEEDS, CALL LIGHT WITHIN REACH.
--- NOTE | 2020-10-16 01:51 | NUR ---
IV PUMP ALARMING, IN TO CHECK. PT AWAKE, ASKING FOR BIPAP MASK TO COME OFF. PLACED ON OXYMASK, TITRATED UP TO 15L TO MAINTAIN SPO2 >90%. PT STATES SHE FELT LIKE SHE WAS HAVING A PANIC ATTACK AND COULDN'T GET BIPAP MASK OFF. ASSISTED PT TO REPOSITION IN BED, HIPS FLOATED ON PILLOWS. REMAINS ON OXYMASK FOR NOW, SPO2:92%. CALL LIGHT WITHIN REACH, REMINDED PT TO CALL IF SHE NEEDS ASSISTANCE.
--- NOTE | 2020-10-16 02:49 | NUR ---
PT UP TO BSC WITH SBA, VOIDED 200ML CONCENTRATED URINE AND HAD SMALL FORMED BM. PT PERFORMED OWN PERICARE AND RETURNED TO BED. PT BRUSHED DENTURES, AND CLEANED HER FACE. NAIL FILE AND COMB PROVIDED PER REQUEST. PT DENIES FURTHER NEEDS. OXYMASK REMAINS AT 15L, SPO2 92%.
--- NOTE | 2020-10-16 04:07 | NUR ---
ASSESSMENT COMPLETED, UNCHANGED AT THIS TIME. PT DENIES COMPLAINTS OR REQUESTS. IV SITE INTACT, FLUIDS INFUSING WNL. OXYMASK REMAINS AT 15L. CALL LIGHT WITHIN REACH.
--- NOTE | 2020-10-16 05:28 | NUR ---
PT DESATURATING ON 15L OXYMASK, PT AGREEABLE TO WEARING BIPAP AT THIS TIME.
--- NOTE | 2020-10-16 08:00 | NUR ---
LOBES ARE TIGHT. PT ON BI-PAP STILL AND TOLERATING. ABD SOUNDS RARE. PT DENIES ABD PAIN, PT DENIES FLATUS, PT DENIES BELCHING, N/V. NO PERIPH. EDEMA NOTED. URINE OUTPUT ADEQUATE SO FAR. PT ALSO HAD A BM SMEAR WITH A SMALL PEBBLE LIKE STOOL.
--- NOTE | 2020-10-16 09:00 | NUR ---
AT 0830 PT WENT AGAIN INTO RESP. DISTRESS WITH TRIPOTTING. RT CHAGNED SETTINGS ON BI PAP AND 1MG MORPHINE IV WAS GIVEN DUE TO SOB. LUNG CT ALSO WAS ORDERED. WILL CONT. TO MONITOR.
--- NOTE | 2020-10-16 09:30 | NUR ---
TRANSPORTED ON BIPAP , INCREASED PRESSURE 15/10 ON 60% DURING TANSPORT, PATIENT SPO2 STAYED AT 90%-92% WITHOUT COMPLICATION.
--- NOTE | 2020-10-16 11:04 | NUR ---
AT 1100 PT STARTED TO COMPLAIN ABOUT SUDDEN ONSET OF CHEST PAIN. V/S WDL. MD AMBROSIO WAS CALLED AND AN EKG WAS ORDERED FOR NOW.
--- NOTE | 2020-10-16 11:23 | NUR ---
ORDERS FOR TROPONIN, CBC AND BMP RECEIVED. COKEMAN IN ROOM. UNABLE TO CONTACT MD VERDUZCO AT THIS TIME.
--- NOTE | 2020-10-16 12:05 | NUR ---
1203 AMD FROM LAB CALLED FOR A CRITICAL TROPONIN OF 0.025. MD AMBROSIO IS AWARE.
--- NOTE | 2020-10-16 12:59 | NUR ---
UPPER LOBES CLEAR BUT DIMINISHED, LOWER LOBES HAVE WHEEZING PRESENT. OVERALL THERE IS MORE AIR MOVEMENT PRESENT AT THIS TIME. CHEST PAIN HAS ALSO SUBSIDED. WILL CONTINUE TO MONITOR.
--- NOTE | 2020-10-16 14:44 | NUR ---
BI-PAP USUALLY ON 40% AND PT IS TOLERATING IT WELL. HOWEVER IF PT NEEDS TO USE BSC, 60% IS NEEDED AND PT DOES TAKE A WHILE TO RECOVER FROM THE ACTIVITY. PT STILL DOES NOT PASS FLATUS, URINE OUTPUT IS JUST ADEQUATE.
--- NOTE | 2020-10-16 15:45 | NUR ---
PT LIVES ALONE IN A 1 STORY HOME. SON ASSISTS HER. PT HAS A RAMP, USE S A NEBULIZER, AND 023L AT HOME. PT DENIES NEEDS FOR FURTHER DME, PLAN ON DC TO HOME WHEN MEDICALLY STABLE.
--- NOTE | 2020-10-16 16:06 | NUR ---
LAB CALLED WITH CRITICAL TROPONIN OF 0.02. MD AMBROSIO IS AWARE.
--- NOTE | 2020-10-16 16:30 | NUR ---
ALL LOBES ARE TIGHT ONCE MORE. PT AT THIS TIME IS ON 10L O2 OXYMASK AND DOING WELL SO FAR. UPPER ABD QUADRANTS HAVE BOWEL TONES PRESENT, LLQ AND RLQ HAVE ONLY RARE BOWEL TONES PRESENT. NO PERIPH EDEMA NOTED. PT AAOX4. WILL CONTINUE TO MONITOR.
--- NOTE | 2020-10-16 19:18 | EKG ---
[facility] [address] [facility] [place] [address] Signed Normal sinus rhythm Cannot rule out Inferior infarct , age undetermined Anterior infarct (cited on or before 27-OCT-2015) T wave abnormality, consider lateral ischemia Abnormal ECG When compared with ECG of 15-OCT-2020 07:03, Significant changes have occurred Confirmed by DAQUAN AMBROSIO DO ([id number]) on 10/16/2020 7:18:14 PM Electronically Signed By: DAQUAN AMBROSIO DO 10/16/20 1918 PATIENT NAME: GLORIA ADHIKARI Electrocardiogram DATE OF : 48 PHYSICIAN: DAQUAN AMBROSIO DO REPORT #: [id number] REPORT IS CONFIDENTIAL AND NOT TO BE RELEASED WITHOUT AUTHORIZATION
--- NOTE | 2020-10-16 20:30 | NUR ---
SHIFT REPORT RECEIVED FROM ALEKSANDAR SAMANO. PT ON 10L OXYMASK. PT CALLED AND URGENTLY NEEDED TO VOID, UP TO BSC WITH SBA. NEW ATTENDS PROVIDED, PT PERFORMED OWN PERICARE AND RETURNED TO BED.
--- NOTE | 2020-10-16 21:10 | NUR ---
PT BACK TO BED AFTER USING BSC WITH ASSISTANCE FROM ALEKSANDAR CASEY. PT SITTING UP IN BED, TRIPOD POSITION. 10L OXYMASK IN PLACE. NEB TREATMENT GIVEN BY R.T. AND THEN BIPAP PLACED ON PT, SET AT 15/10, FIO2 INCREASED TO 100% FOR PT TO RECOVER AND THEN TITRATED TO 50%. LUNGS ARE DIM/TIGHT, RESPIRATIONS APPEAR LABORED, ACCESSORY MUSCLES IN USE. HR TACHY UP TO 150'S AND BP ELEVATED. DR. AMBROSIO NOTIFIED AND ORDER FOR PRN ATIVAN RECEIVED AND ADMINISTERED. IV SITE INTACT, FLUIDS INFUSING WNL. AFTER ATIVAN, PT NOW LAYING BACK IN BED.
--- NOTE | 2020-10-16 22:00 | NUR ---
DR. AMBROSIO AGAIN NOTIFIED DUE TO RESPIRATORY DISTRESS AND TACHYCARDIA, HR IN 130'S. PER BIPAP, TIDAL VOLUMES 215-315, R.T. ALSO CALLED TO ADJUST BIPAP SETTINGS. AFTER ADJUSTING MASK, TIDAL VOLUMES ~500. DR. AMBROSIO IN TO SEE PT. ORDERS RECEIVED FOR VBG.
--- NOTE | 2020-10-16 22:50 | NUR ---
DR. AMBRSOIO REMAIN IN UNIT, HE HAS CALLED AND UPDATED DR. VERDUZCO. ORDER RECEIVED FOR 1MG IV MORPHINE, GIVEN AT THIS TIME FOR AIR HUNGER.
--- NOTE | 2020-10-16 23:40 | NUR ---
DR. AMBROSIO CALLED TO CHECK ON PT'S STATUS. SHE APPEARS TO BE BREATHING EASIER, DOES NOT SEEM TO BE DISTRESSED. HR NOW IN 110'S, RESPIRATIONS 14-20, SPO2:92-94% ON BIPAP 15/10 @60% FIO2. ORDER RECEIVED FOR REPEAT VBG, SENT AT THIS TIME.
--- NOTE | 2020-10-17 00:39 | NUR ---
ASSESSMENT COMPLETED. PT IS DROWSY BUT WAKES WHEN SPOKEN TO. ASKED IF PT NEEDED TO VOID AND ASSISTED HER TO BSC, HOWEVER, PT UNABLE TO VOID. PT IS VERY UNSTEADY ON FEET AFTER RECEIVING MORPHINE. LUNGS REMAIN TIGHT/DIM, BIPAP 15/10 @ 60% IN PLACE. RESPIRATIONS APPEAR EVEN AND UNLABORED AT THIS TIME. HR REGULAR, RATE 110'S. BOWEL TONES HYPOACTIVE IN UPPER QUADRANTS AND RARE IN LOWER. IV INTACT, FLUIDS INFUSING PER ORDERS. PT BACK IN BED NOW, TILTED ONTO RIGHT SIDE WITH PILLOW SUPPORT.
--- NOTE | 2020-10-17 02:02 | NUR ---
PT SLEEPING, RESPIRATIONS EVEN AND UNLABORED. HR: 82, RR: 22, SPO2: 89%. FIO2 INCREASED TO 65%.
--- NOTE | 2020-10-17 05:00 | NUR ---
ASSESSMENT COMPLETED. PT REMAINS SLIGHTLY DROWSY, IS SOMEWHAT FORGETFUL TO PLACE, STATING THAT SHE THOUGHT WE WERE IN [facility]. RESPIRATIONS CONTINUE TO APPEAR EVEN AND UNLABORED, BIPAP 15/10 FIO2 DECREASED TO 60%. HR REGULAR, RATE 70-80'S. BOWEL TONES REMAIN HYPOACTIVE/RARE, DENIES NAUSEA. UP TO BSC, PT STILL UNSTEADY BUT IMPROVED COORDINATION FROM LAST TIME. UNABLE TO VOID, BLADDER SCAN: 297 ML. IV INTACT, FLUIDS INFUSING WNL. PT TILTED ONTO LEFT SIDE WITH PILLOW SUPPORT. CALL LIGHT WITHIN REACH.
--- NOTE | 2020-10-17 07:30 | NUR ---
report recieved, care of patient assumed at this time.
--- NOTE | 2020-10-17 07:50 | NUR ---
Responded to Pt call light, Pt up to BSC with BIpap in place. Pt visibly short of breath with exertion but oxygen saturations maintainded over 90%. pt now back in bed, RT in room to give Pt a breatihng tx. call light within reach. Assessment completed. Will continue to monitor.
--- NOTE | 2020-10-17 08:35 | NUR ---
AM meidcations administered. Pt taken off the Bipap and placed on 10 L OM. pt provided sips of water and warm rag to wash face and hands. Spo2 =92%, heartrate in the 90s. Respirations even but labored. call light within reach. Denies further needs at this time.
--- NOTE | 2020-10-17 08:44 | NUR ---
Pt pulled upo in bed, pl,aced back on bipap at this time to improved work of breathing. plan to put pt back on oxymask when visitor arrives. call light within reach. Will continue to monitor.
--- NOTE | 2020-10-17 08:57 | NUR ---
PT HAD A SHORT EPISODE OF NAUSEA, PLACED BACK ON OXYMASK. COUGHED UP BROWNISH COLORED SPUTUM. SPO2 REMAINS GREATER THAN 90% wILL CONTINUE TO CLOSELY MONITOR.
--- NOTE | 2020-10-17 09:26 | NUR ---
pt complains of feeling short of breath. spo2 remainis within normal limits on bipap, HR up to 105. Pt given 1 mg of IV morphine for air hunger (see emar). Will continue to closely monitor
--- NOTE | 2020-10-17 09:36 | NUR ---
PT'S SON IN ROOM TO VISIT AT THIS TIME.
--- NOTE | 2020-10-17 10:02 | NUR ---
DR VERDUZCO IN ROOM FOR ASSESSMENT WHILE SON REMAINS AT BEDSIDE. PT PLACED BACK ON BIPAP AND REPOSITIONED IN BED. PLAN OF CARE FOR DAY ESTABLISHED WITH PT. CALL LIGHT WITHIN REACH. WILL CONTINUE TO MONITOR.
--- NOTE | 2020-10-17 10:56 | NUR ---
RT CALLED TO GIVE PT A BREATING TX.
--- NOTE | 2020-10-17 12:45 | NUR ---
ASSESSMENT COMPETED. PT UP TO [facility] TO VOID ON 10 L NC. SPO2 =88 AND HR = 108 WITH EXERTION. PT BACK IN BED. GIVEN PRN MORPHINE FOR SHORTNESS OF BREATH AND BACK ON BIPAP. SPO2 INCREASED INTO THE MID 90S. PT HAS HYPOACTIVE BOWEL TONES IN ALL FOUR QUADRANTS AND NOW STATES SHE IS PASSING GAS. DENIES NAUSEA. CALL LIGHT WITHIN REACH. DENIES FURTHER NEEDS AT THIS TIME.
--- NOTE | 2020-10-17 14:21 | NUR ---
Pt sleeping soundly on the bipap. Medications administered. pt awoke briefy to take oral medication and then fell back asleep. SPO2 =95 % rr=18. Hr -65-80 BPM at rest. call light within reach. no further needs at this time.
--- NOTE | 2020-10-17 15:30 | NUR ---
ASSESSMENT COMPLETED. PT STATES SHE FEELS BETTER AFTER SLEEPING ON THE BIPAP FOR THE LAST TWO HOURS. UP TO BSC TO VOID, HR REMAINED WNL WITH ACTIVITY. PT ON 10 L OM AT THIS TIME. SPO2= 90-93%. BOWEL TONES REMIAN HYPOACTIVE. PT DENIES PAIN OR DISCOMFORT AT THIS TIME. CALL LIGHT WITHIN REACH. WILL CONTINUE TO MONITOR.
--- NOTE | 2020-10-17 16:10 | NUR ---
RT IN ROOM AT THIS TIME DOIND CHEST PHISOTHERAPY AND ADMINISTERING BREATHING TX.
--- NOTE | 2020-10-17 17:32 | NUR ---
PT SON LEFT FOR EVENING AND PATIENT NOW RESTING ON THE BIPAP. SP02=95% HR=70-80, BREATHING EVEN AND UNLABORED. RR=16. CALL LIGHT WITHIN REACH. DENIES FURTHER NEEDS AT THIS TIME.
--- NOTE | 2020-10-17 20:15 | NUR ---
SHIFT REPORT RECEIVED FROM ALEKSANDAR LERMA. ASSESSMENT COMPLETED. PT IS ALERT/ORIENTED, DENIES PAIN. LUNGS DIM, BIPAP 15/10 @ 60% IN PLACE, 2MG IV MORPHINE GIVEN PER REQUEST FOR AIR HUNGER. HR REGULAR. BOWEL TONES HYPOACTIVE, DENIES NAUSEA. CMS INTACT, NO EDEMA NOTED. SKIN GROSSLY INTACT, SCATTERED BRUISING NOTED. PT UP TO BSC WITH 1-PA, SLIGHTLY UNSTEADY, VOIDED AND RETURNED TO BED. PT PLACED ON 6L NC FOR ORAL CARE AND EVENING MEDS, TOLERATED WELL, AND THEN BACK ON BIPAP. PT POSITIONED ONTO RIGHT SIDE WITH PILLOW SUPPORT. IV INTACT, FLUIDS INFUSING WNL. PT DENIES NEEDS AT THIS TIME, CALL LIGHT AND BELONGINGS WITHIN REACH.
--- NOTE | 2020-10-17 22:21 | NUR ---
IN TO GIVE SCHEDULED SOLU-MEDROL. PT SLEEPING, BIPAP IN PLACE WITH SETTINGS UNCHANGED. PT DOES NOT APPEAR TO BE IN ANY DISTRESS, RESPIRATIONS EVEN AND UNLABORED. VITAL SIGNS STABLE.
--- NOTE | 2020-10-18 00:12 | NUR ---
PT CONTINUES TO SLEEP, APPEARS TO HAVE REPOSITIONED HER SELF SUPINE FROM HER RIGHT SIDE. BIPAP REMAINS IN PLACE, SETTINGS UNCHANGED. RESPIRATIONS EVEN AND UNLABORED, PT DOES NOT APPEAR TO BE IN ANY DISTRESS. IV INTACT, FLUIDS INFUSING WNL. WILL ALLOW FOR REST AND CONTINUE TO MONITOR.
--- NOTE | 2020-10-18 02:01 | NUR ---
CALL LIGHT ANSWERED, PT UP TO BSC WITH 1-PA TO VOID AND THEN RETURNED TO BED. SIPS OF WATER GIVEN AD CHAPSTICK PROVIDED. PT BRUSHED HAIR. BIPAP REPLACED, SETTINGS UNCHANGED. 2MG IV MORPHINE GIVEN FOR AIR HUNGER PER REQUEST. PT DENIES FURTHER NEEDS. CALL LIGHT WITHIN REACH.
--- NOTE | 2020-10-18 04:18 | NUR ---
PT AWAKE, REQUESTS TO TAKE OFF BIPAP. PLACED ON OXYMASK AT 12L. ASSESSMENT COMPLETED AND UNCHANGED. PT PROVIDED WITH WARM WASH CLOTH TO WASH FACE. SHE DENIES FURTHER NEEDS AT THIS TIME, CALL LIGHT WITHIN REACH.
--- NOTE | 2020-10-18 04:56 | NUR ---
UP TO BSC WITH SBA TO VOID AND BACK TO BED. REMAINS SLIGHTLY UNSTEADY ON FEET. PT STARTING TO FEEL WORN OUT AND SHORT OF BREATH. DISCUSSED WEARING BIPAP AGAIN, AND THOUGH PT IS NOT ENTHUSIASTIC ABOUT WEARING IT, SHE IS AGREEABLE. PRN MORPHINE GIVEN FOR AIR HUNGER AND BIPAP PLACED, SETTINGS REMAIN 15/10 @60%. R.T. NOW IN ROOM TO GIVE SCHEDULED BREATHING TREATMENT.
--- NOTE | 2020-10-18 07:30 | NUR ---
REPORT RECIEVED. PATIENT UP TO COMMODE WITH ASSIST. INCREASED SHORTNESS OF BREATH WITH EXERTION. BIPAP OFF AT THIS TIME, OXYMASK APPLIED AT 11 L. BACK TO BED W/O INCIDENT.
--- NOTE | 2020-10-18 08:00 | NUR ---
ASSESSMENT DONE. TALKED WITH PATIENT ABOUT POC FOR DAY, INCICATES UNDERSTANDING. REMAINS ON OXYMASK AT THIS TIME PER PATIENT REQUEST. PATIENT C/O SORE COCCYX AREA. PILLOW PLACED FOR COMFORT.
--- NOTE | 2020-10-18 08:40 | NUR ---
morphine 2 mg iv given fo resp comfort. bipap mask reapplied. I=15/E=10, 60% FIO2.
--- NOTE | 2020-10-18 08:40 | NUR ---
MORPHINE GIVEN FOR RESP COMFORT. BIPAP REAPPIED.
--- NOTE | 2020-10-18 09:00 | NUR ---
SLEEPING ON BIPAP AT THIS TIME.
--- NOTE | 2020-10-18 10:57 | NUR ---
DRS. AMBROSIO AND LUBA HERE TO SEE PATIENT. ORDERS RECIEVED FOR VBG.HAS BEEN ON OXYMASK FOR APPROX 40 MIN, NOW WISHES FOR BIPAP, THIS REAPPLIED.
--- NOTE | 2020-10-18 11:45 | NUR ---
C/O INCREASED RESP DISTRESS. PULLED OF BIPAP MASK, OXYMASK ON AT 11 LITERS. VERY ANXIOUS. NEB TREATMENT GIVEN PER [facility].
--- NOTE | 2020-10-18 12:05 | NUR ---
UP TO COMMODE. EXTREME DYSPNEA WITH EXERTION. IS ON BIPAP. HR 114, O2 SAT MID 80'S, BACK TO BED.
--- NOTE | 2020-10-18 12:10 | NUR ---
DR. AMBROSIO AWARE OF INCREASED RESP DISTRESS. MORPHINE 2 MG ORDERED TO BE GIVEN NOW. THIS DONE. HOB ELEVATED. PATIENT IS VERY ANXIOUS.
--- NOTE | 2020-10-18 12:25 | NUR ---
MORE CALM AFTER MORPHINE GIVEN. HOWEVERE REMAINS MODERATELY SHORT OF BREATH AND ANXIOUS WITH INCREASED WORK OF BREATHING. REMAINS ON BIPAP AT 60% FIO2 15/10. EXTREMITIES VERY TENSE.
--- NOTE | 2020-10-18 12:50 | NUR ---
ANXIOUS, STATES "I CAN'T BREATH" HOB ELEVATED 4 PILLOW BEHIND BACK. PATIENT NEEDS MUCH REASSURANCE, RN AND BESIDE. SON-IN-LAW IN ROOM.
--- NOTE | 2020-10-18 13:15 | NUR ---
PT'S FAMILY MEMBER CAME OUT OF THE ROOM TO REQUEST HELP. THIS RN WENT INTO ROOM TO FIND PT WITH ELEVATED WORK OF BREATHING, ARMS HLED STIFF AND STRAIGHT, CHIN TILLTED UP WITH BIPAP ON. PT APPEARS SLIGHTLY FRANTIC, STATES "I NEED A DRINK OF WATER". PT TAKEN OFF BIPAP AND PLACED ON OXYMASK 15L FLOW. PT ABLE TO TANIA SIPS OF WATER. ENCOURAGED PT TO RELAX BEST SHE CAN. PT HAS EPISODES OF PANIC AND ELEVATED RR EVERY 3-5 MINUTES LASTING FOR APPROXIMATLY 2 MINUTES. PT THEN STATES AT 1345 "I THINK I AM GOING TO THROW UP". WENT OUT OF THE ROOM TO UPDATE PT'S PRIMARY NURSE, DAVID, WHO IS NOW BACK FROM LUNCH. CALLED TO UPDATE ON PT STATUS AND REQUEST ORDER FOR ANTIEMETIC. ORDER FOR ZOFAN AND VISTARIL GIVEN OVER THE PHONE.
--- NOTE | 2020-10-18 14:10 | NUR ---
ZOFRAN 4 MG IV GIVEN FOR NAUSEA. IS CURRENTLY ON OXYMASK R/T NAUSEA.
--- NOTE | 2020-10-18 14:15 | NUR ---
LESS ANXIOUS AT THIS TIME. REMAINS ON OXYMASK. DR. AMBROSIO HERE TO TALK PATIENT ABOUT POSSIBLE INTABATION.
--- NOTE | 2020-10-18 14:30 | NUR ---
COATES CATH PLACED W/O DIFFICULTY, WITH RETURN OF CLEAR YELLOW URINE. PATIENT TOLERATED WELL. REFUSING BIPAP AT THIS TIME.
--- NOTE | 2020-10-18 15:15 | NUR ---
DR. AMBROSIO UPDATED DR. VERDUZCO REGARDING EVENTS OF PATIENTS DAY. NO FUTHER CHANGES AT THIS TIME.
--- NOTE | 2020-10-18 15:30 | NUR ---
BIPAP REAPPLIED. WAS OFF BIPAP APPROX 1.5 HOURS.
--- NOTE | 2020-10-18 17:45 | NUR ---
DR. AMBROSIO HERE TO CHECK ON PATIENT, AND TALK WITH PATIENT FAMILY MEMBER. PATIENT IS LAYING ON LEFT SIDE AND BIPAP SLEEPING.
--- NOTE | 2020-10-18 20:02 | NUR ---
PATIENT SLEEPING SOUNDLY. RR 14. O2 SAT 91% ON BIPAP AT 50% Fi02. PATIENT'S FAMILY AT BEDSIDE. DENIES ANY NEEDS. ALLOW PATIENT TO REST.
--- NOTE | 2020-10-18 21:00 | NUR ---
PATIENT RESTING WITH EYES CLOSED TOLERATING BIPAP. PATIENT'S DAUGHTER WOKE PATIENT FOR MEDS AND REPOSITIONING. PATIENT STARTLED AT FIRST, ABLE TO CALM EASILY. PATIENT REPOSITIONED IN BED. BIPAP OFF. PATIENT TOLERATED SIPS OF WATER AND MEDS. DENIED PAIN. PRN VISTARL PROVIDED. PATIENT IV SITE BRUISED BUT FLUSHES WELL WITH GOOD BLOOD RETURN. IV ABX STARTED. PATIENT DENIED NAUSEA OR GI UPSET. HYPOACTIVE BOWEL SOUNDS HEARD THROUGHOUT. COATES CARE DONE. GOOD URINE OUTPUT. ORAL CARE AND CHAP STICK PROVIDED. PATIENT BACK ON BIPAP WITH IN-LINE MEDS PER ORDER. CALL LIGHT IN HAND. FAMILY AT BEDSIDE.
--- NOTE | 2020-10-18 21:34 | NUR ---
2012 Nursing has requested that they be allowed to give nebulizer treatments at this time to simplify patient contact and during family visit. Will check back later, and have asked them to call if they need anything for patient.
--- NOTE | 2020-10-18 22:00 | NUR ---
PATIENT PROVIDED WITH PRN MORPHINE. PATIENT'S FAMILY REPORTS SHE WAS COUGHING AND THEN THE COUGHING LED TO SOME ANXIETY. PATIENT HAS HER HAND ON THE BIPAP MASK AND IS BREATHING MORE UNORGANIZED THAN SHE HAD BEEN PREVIOUSLY. PRN MORPHINE PROVIDED, MASK READJUSTED. PATIENT ABLE TO SETTLE BACK INTO REGULAR RYTHM OF BREATHING. OR 2ATS >90% ON 50% Fi02. RR 14. FAMILY GOING HOME FOR THE NIGHT. PATIENT HAS CALL LIGHT IN HAND.
--- NOTE | 2020-10-19 00:25 | NUR ---
2330 PATIENT PULLING BIPAP OFF A FEW TIMES DUE TO DISCOMOFRT. REQUEST A BREAK. TITRATED TO 5L NC. PATIENT TOLERATED WELL. 0030 PATIENT TOELRATED 5L WELL. SIPS OR WATER AND CHAPSTICK PROVIDED. PATIENT BACK ON BIPAP. PROVIDED WITH PRN MORPHINE AND NEB TREATMENT. PATIENT HAS HARSH COUGH WITHOUT SPUTUM AT THIS TIME. RT IN ROOM.
--- NOTE | 2020-10-19 00:50 | NUR ---
PATIENT REQUESTING BIPAP OFF. MASK REMOVED. DISCUSSED THERAPY NEEDS WITH THE PATIENT, PATIENT AGREES TO WEAR THE MASK FOR AN HOUR AND THEN TAKE A BREAK. CALL LIGHT IN HAND.
--- NOTE | 2020-10-19 02:00 | NUR ---
PATIENT OFF BIPAP. 5L NC IN PLACE. PATIENT REPORTS FEELING THOUGH SHE CAN BREATH EASIER NOW. PATIENT IS MUCH MORE ALERT AND HOLDING CONVERSATION AT THIS TIME. RESTING IN BED. HOB ELEVATED. IV FLUIDS PER ORDER, SITE WNL. PATIENT DENIES ANY NEEDS AT THIS TIME.
--- NOTE | 2020-10-19 03:12 | NUR ---
PATIENT COUGHING SOME MORE. NOT PRODUCING ANY SPUTUM. WATER PROVIDED. PATIENT REQUEST HER DENTURES WHICH ARE CLEANED AND PROVIDED. VS STABLE. PATIENT DENIED ANY FURTHER NEEDS. CALL LIGHT IN REACH. TOLERATING 5L NC.
--- NOTE | 2020-10-19 04:30 | NUR ---
RT CALLED FOR SCHEDULED NEB PER PATIENT REQUEST. PATIENT TOLERATING 5L NC. NO NAUSEA OR PAIN. CONTINUES TO COUGH OCCATIONALLY. LUNG SOUNDS ARE CLEAR, DIM MOSTLY IN RUL.
--- NOTE | 2020-10-19 06:00 | NUR ---
SECOND IV SITE ESTABLISHED. PATIENT RR 16. TOLERATING 5L WELL. NO ANXIETY. PATIENT EXCITED TO POSSIBLY EAT FOOD TODAY. PATIENT HAS BEEN COUGHING AND WOULD LIKE SOMETHING TO SOOTHE HER THROAT. DISCUSSED OPTIONS AND PATIENT WOULD LIKE THE COUGH SYRUP WITH CODEINE. PATIENT HAS ALLERGY LISTED. PATIENT DENIED THIS, STATES "IT WAS WHEN I WAS YOUNGER AND IT JUST MADE ME FEEL FUNNY, LIKE A LITTLE LOOPY". PATIENT'S COUGHING THEN LED TO FEELING SOB AND PATIENT REQUESTING THE BIPAP TO BE PUT BACK IN PLACE, WHICH IT WAS. PATIENT IS SITTING UPRIGHT IN THE BED, DEEP BREATHING, RR 18. OR SATS GREATER THAN 90%.
--- NOTE | 2020-10-19 06:09 | NUR ---
DISCUSSED PATIENT'S REQUEST FOR PRN COUGH SYRUP WITH CHARISSA WITH PATIENT'S DAUGHTER WHO THOUGHT SHE HAD TAKEN THIS MED IN THE PAST WITHOUT ISSUE AND WAS UNSURE OF THE REASON FOR THIS BEING LISTED AN ALLERGY. SPOKE TO AND RECEIVED ORDERS FROM PRN COUGH MEDS, VERIFIED VIA REPEAT BACK. ALSO STATES THAT LONG THE PATIENT IS DOING WELL SHE CAN HAVE BREAKFAST.
--- NOTE | 2020-10-19 06:51 | NUR ---
morning labs drawn. patient tolerating 5L NC. prn robitussin and vistaril provided. patient denied GI upset. goins emptied. breakfast order received.
--- NOTE | 2020-10-19 07:33 | NUR ---
REPORT RECIEVED. PATIENT RESTING IN BED. RESTFUL.
--- NOTE | 2020-10-19 07:50 | NUR ---
ASSESSMENT DONE. O2 VIA NC DECREASED TO 4 L NC. PATIENT IS TALKATIVE AND IS IN GOOD SPIRITS. TALKED WITH PATIENT ABOUT POC FOR DAY. INDICATES UNDERSTANDING.
--- NOTE | 2020-10-19 08:35 | NUR ---
sitting up in bed for breakfast. O2 INCREASED TO 5 L O2 SAT DOWN TO 82. PATIENT DENIES SHORTNESS OF BREATH.
--- NOTE | 2020-10-19 09:30 | NUR ---
TOOK BREAKFAST OF TOAST,OATMEAL,COFFEE. TOLERATED WELL. DENIES NAUSEA OR ABD PAIN.
--- NOTE | 2020-10-19 09:40 | NUR ---
OOB TO COMMODE. UPON TRANSFER, BIPAP APPLIED. HR TO 120, O2 SAT DOWN TO 82 WITH TRANSFER TO COMMODE ON BIPAP. FIO2 INCREASED FROM 50 TO 70%.
--- NOTE | 2020-10-19 09:45 | NUR ---
WHILE ON COMMODE, SPONGE BATH GIVEN, BED LINEN CHANGED. BACK TO BED, NO BM. PATIENT EXTREMELY SHORT OF BREATH. REMAINS ON BIPAP AT 15/10, 70% FIO2.
--- NOTE | 2020-10-19 10:00 | NUR ---
MORPHINE 2 MG IV GIVEN FOR RESP COMFORT. DR. AMBROSIO HERE TO SEE PATIENT.
--- NOTE | 2020-10-19 10:05 | NUR ---
PCXR DONE. PATIENT NOW ON OXYMASK AT 15 L.
--- NOTE | 2020-10-19 13:57 | NUR ---
PATIENT WOKE UP, AGITATED AND CONFUSED, TOOK OFF THE CPAP. PATIENT RESUMED ON O2 @ 6L VIA NC FOR O2 SATS OF 92%. PATIENT BACK TO SLEEP QUICKLY
--- NOTE | 2020-10-19 14:35 | NUR ---
ROBITUSSIN 10 ML PO GIVEN FOR COUGH AND VISTARIL 25 MG PO GIVEN FOR ANXIETY. O2 AT 6 L NC ON .
--- NOTE | 2020-10-19 16:30 | NUR ---
PERCUSSION TO RIGHT LUNG DONE. PATIENT NOW ON OXYMASK AT 12 L, WAS ON BIPAP FOR APPROX 20 MIN. PATIENT STATED AFTER TAKING COUGH MEDICATION AND VISTARIL SHE FELT BETTER. ASSESSMENT COMPLETE. DAUGHTER HAS BEEN IN ROOM MOST OF DAY. COATES CATH PATENT WITH CLEAR YELLOW URINE NOTED. IVF REMAIN AT 85 ML/HR.
--- NOTE | 2020-10-19 19:01 | NUR ---
REPORT TO NEXT SHIFT. TOOK APPROX 25% OF DINNER. REMAINS ON O2 AT 6 L NC.
--- NOTE | 2020-10-19 19:44 | NUR ---
PATIENT UP TO THE BSC TO HAVE A BM. PATIENT MOVES QUICKLY AND DOES NOT FOLLOW COMMANDS WELL. PATIENT IS ALERT AND HOLDING CONVERSATION, HOWEVER APPEARS FORGETFUL AND SLIGHTLY CONFUSED. PATIENT'S DAUGHTER AT THE BEDSIDE, STATES "SOMETIMES SHE GETS LIKE THIS". PATIENT UNABLE TO HAVE BM. RETURNED TO BED. REQUEST BOWEL CARE, PRN SUPPOSITORY PROVIDED. PATIENT HAD COUGHED UP A LARGE RED CHUNK AND REPORTS FEELING HER BREATHING IS EASIER. PATIENT TOLERATED ACTIVITY WELL ON 4L NC. ENCOURAGED PATIENT TO REST.
--- NOTE | 2020-10-19 20:21 | NUR ---
PATIENT PROVIDED WITH SCHEDULED NEB TREATMENTS PER REQUEST. TOLERATING 4L NC.
--- NOTE | 2020-10-19 21:00 | NUR ---
EVENING MEDS PROVIDED. PATIENT REQUEST PRN VISTARIL AND ROBITUSSIN. PATIENT VS STABLE. APPEARS CALM. TOLERATING 4L NC.
--- NOTE | 2020-10-19 21:30 | NUR ---
PATIENT'S FAMILY LEAVING FOR THE DAY. PATIENT IS CONCERNED ABOUT NOT HAVING A BM AFTER SUPPOSITORY. ENCOURAGED PATIENT TO BE PATIENT SHE HAD ONLY STARTED EATING AGAIN TODAY AFTER BEING NPO. PATIENT VERBALIZED UNDERSTANDING. IS READY FOR BED NOW BUT IS NOT WANTING THE BIPAP. 4L NC IN PLACE. O2 SATS 90%, RR 18. PATIENT DENIES PAIN. COATES DRAINING WELL. CALL LIGHT IN HAND. BED ALARM ACTIVE.
--- NOTE | 2020-10-19 23:45 | NUR ---
PATIENT IS RESTING IN BED. PICKING AT HER CARDIAC LEADS. PATIENT STATES "I THOUGHT YOU WANTED ME TO TAKE THOSE OFF". REORIENTED PATIENT AND REPLACED LEADS. ENCOURAGED PATIENT TO REPOSITION. PATIENT TOLERATING 4L NC. COATES DRAINING FREELY.
--- NOTE | 2020-10-20 02:00 | NUR ---
PATIENT RESTING IN BED. BREATHING EVEN AND NONLABORED, RR 16. O2 SAT 92% ON 4L NC. ALLOWED PATIENT TO REST. CALL LIGHT IN REACH. BED ALARM ACITVE.
--- NOTE | 2020-10-20 03:54 | NUR ---
PATIENT CALLED FOR ASSISTANCE TO THE BSC. PATIENT HAS HAD LARGE AMOUNT OF URINE OUTPUT AND A SMALL BM SMEAR NOTED ON THE JSUTINO PAD. PATIENT TRANSFERED WELL. RR MILDLY INCREASED. PATIENT RETURNED TO BED AND REQUEST HER MORNING NEB TREATMENT. RT CALLED.
--- NOTE | 2020-10-20 06:44 | NUR ---
DISCUSSED PATIENT'S FLUID STATUS WITH . PATIENT IS NPO FOR POSSIBLE PROCEDURE. FLUIDS CHANGED TO TKO.
--- NOTE | 2020-10-20 08:09 | NUR ---
CXR COMPLETE THIS AM. DR. PHELPS IN ROOM. RT ALSO GIVING MANUAL CPT. PT ON 6 L NC. PT STATING PAIN IS 7/10 AND MEDICATED WITH 2 MG IV MORPHINE. PT ABLE TO SIT UP AND TAKE BREATHS, HOWEVER VERY DIM BASES. PT REPORTS HER ABDOMEN IS WHERE HER PAIN IS. ACTIVE BS. COATES DRAINING CLEAR YELLOW URINE. CONTINUE TO MONITOR.
--- NOTE | 2020-10-20 08:31 | NUR ---
DR. VERDUZCO IN ROOM AT THIS TIME. PLAN IS TO HOLD OFF ON BRONCHOSCOPY TODAY AND CONTINUE TO MONITOR PATIENT. PATIENT NOW ON 5 L NC. PT STILL STATES SHE FEELS "AWFUL" AND IS WANTING TO HAVE A BM. MILK OF MAG TO BE ORDERED BY DR. VERDUZCO. RT FINISHING UP CPT AND NEB TXs. DIET BEING ADVANCED TO REGUALAR DIET. CONTINUE TO MONITOR.
--- NOTE | 2020-10-20 09:50 | NUR ---
PATIENT MOVED FROM BED TO CHAIR 1PA WITH STAND AND PIVOT. EATING BREAKFAST NOW, LINENS CHANGED. FACE AND HANDS WASHED. ES IN ROOM NOW, CALL LIGHT IN REACH, NOOTHER NEEDS AT THIS TIME
--- NOTE | 2020-10-20 11:36 | NUR ---
PATIENT RESTING IN BED AT THIS TIME AFTER SITTING UP IN THE CHAIR FOR A GOOD PORTION OF THE MORNING. PT'S SON CIARAN WAS HERE AND GIVEN AN UPDATE. PT ASKED TO LAY ON ONE SIDE OR THE OTHER TO PROMOTE LUNG EXPANSION AND IS NOW ON LEFT SIDE, AND SP02 DROPS DOWN LOW 82% AND OXYGEN TURNED UP TO 5 L NC. SP02 89% ON THIS AT THIS TIME. CONTINUE TO MONITOR.
--- NOTE | 2020-10-20 17:51 | NUR ---
PATIENT UP TO CHAIR FOR DINNER AND IS NOW ON GREEN WALL HI-AYAN NASAL CANNULA AT 8L. WHILE PATIENT IS EATING, SP02 IS HOVERING 86-89% MOSTLY. PT DENIES SHORTNESS OF BREATH. PT HAS HAD MORE OF A PRODUCTIVE COUGH TODAY. SPUTUM IS DARK BROWN MUCOUS LIKE IN COLOR AND NATURE. ENCOUARING IS AND ACAPELLA. PT HAS CONTINUES TO RECEIVE RT TREATMENTS. COATES DRAINING DILUTE URINE. CONTINUE TO MONITOR.
--- NOTE | 2020-10-20 18:39 | NUR ---
PATIENT BACK TO BED W/O HAVING A BM. PT ATE MOST OF HER DINNER AND IS VERY FRUSTRATED WITH HER INABILITY TO PRODUCE ANY BM. SHE STATES IT HAS BEEN 10 DAYS SINCE HER LAST BM. DISCUSSED WITH PT HER SMALL BOWEL OBSTRUCTION THAT SHE HAD EARLIER IN THIS HOSPITAL STAY, AND THAT SOMETIMES THINGS CAN JUST TAKE A WHILE TO START MOVING AGAIN. PT IS NOT DISTENDED AND HAS ACTIVE BOWEL SOUNDS AT THIS TIME. PT IS NOW ON 11L HIGH FLOW WALL CANNULA. PT STILL DENIES SHORTNESS OF BREATH AND DOES NOT APPEAR IN ANY DISTRESS AT THIS TIME. CONTINUE TO MONITOR.
--- NOTE | 2020-10-20 19:04 | NUR ---
DR. VERDUZCO CALLED AND UPDATED ON PATIENT'S OXYGEN NEEDS THIS AFTERNOON, AND UPDATED THAT SHE IS CURRENTLY ON 13L HIGH FLOW WALL CANNULA. SP02 IS CURRENTLY 92% AND WILL TITRATED TO KEEP HER >89%. HR IN THE 80s. CONTINUE TO MONITOR.
--- NOTE | 2020-10-20 20:30 | NUR ---
SHIFT REPORT RECEIVED FROM ALEKSANDAR COMBS. ASSESSMENT COMPLETED. PT IS ALERT/ORIENTED, DENIES PAIN. LUNGS CLEAR, 12L HIGH FLOW NC IN PLACE. HR REGULAR. BOWEL TONES ACTIVE, DENIES NAUSEA. SKIN GROSSLY INTACT WITHOUT EDEMA NOTED. COATES PATENT, CATH CARE PROVIDED. IV SITES INTACT AND PATENT. R.T. IN TO GIVE SCHEDULED BREATHING TREATMENTS. PT DENIES NEEDS AT THIS TIME, CALL LIGHT WITHIN REACH.
--- NOTE | 2020-10-20 21:55 | NUR ---
IN TO GIVE SCHEDULED SOLU-MEDROL. PT CONTINUES TO REST IN BED, SON IN ROOM TO VISIT. PT DENIES NEEDS. COATES EMPTIED AND IV SALINE LOCKED.
--- NOTE | 2020-10-20 23:43 | NUR ---
patient was assited to bedside commode with standby assist. patient has goins. patient was able to have a medium borwn soft stool. patient helped to clean up and she is back in bed. buster grider. patient states "i feel so much better"
--- NOTE | 2020-10-20 23:56 | NUR ---
ASSESSMENT COMPLETED, UNCHANGED AT THIS TIME. PT DENIES COMPLAINTS. IV SITES REMAIN INTACT AND SALINE LOCKED. OXYGEN REMAINS AT 12 HIGH FLOW NC. COATES PATENT.
--- NOTE | 2020-10-21 02:16 | NUR ---
PT APPEARS TO BE SLEEPING AT THIS TIME, NO APPARENT DISTRESS. RESPIRATIONS EVEN AND UNLABORED, 12L HIGH FLOW NC REMAINS IN PLACE.
--- NOTE | 2020-10-21 03:30 | NUR ---
CALL LIGHT ANSWERED, PT UP TO BSC WITH 1-PA TO HAVE LARGE, SOFT BM. ASSISTED WITH PERICARE AND APPLIED BARRIER CREAM APPLIED TO COCCYX/SACRUM. ASSESSMENT COMPLETED AND UNCHANGED. PT NOW BACK IN BED, DENIES FURTHER NEEDS.
--- NOTE | 2020-10-21 04:00 | NUR ---
CALL LIGHT ON. pt UP TO BSC AND BACK TO BED. SMALL BM NOTED, SEMI LIQUID SOFT. pt RESTING IN BED. CALL LIGHT WITHIN REACH.
--- NOTE | 2020-10-21 05:01 | NUR ---
CALL LIGHT ANSWERED. PT HAD BEEN INCONTINENT OF SMALL AMOUNT OF STOOL, ASSISTED HER TO [facility] WHERE SHE HAD ANOTHER MEDIUM AMOUNT OF SOFT/SEMI-LIQUID STOOL. PERICARE, CATH CARE, AND NEW LINENS PROVIDED. PT BACK TO BED, OXYGEN INCREASED TO 15L HIGH FLOW NC FOR SPO2 OF 84%, NOW 87%. WILL CONTINUE TO MONITOR.
--- NOTE | 2020-10-21 06:04 | NUR ---
IN TO GIVE SCHEDULED SOLU-MEDROL. OXYGEN TITRATED TO 10L, SPO2 NOW 94%. COATES EMPTIED. PT DENIES FURTHER NEEDS.
--- NOTE | 2020-10-21 06:20 | NUR ---
CALL LIGHT ANSWERED, UP TO BSC WITH 1-PA, HAD SMALL AMOUNT OF SOFT STOOL. PERICARE PROVIDED AND PT RETURNED TO BED. NO FURTHER REQUESTS AT THIS TIME.
--- NOTE | 2020-10-21 07:53 | NUR ---
PT CALL LIGHT ON. THIS RN TO ROOM. PT UP TO BEDSIDE COMODE ON HER OWN. FALL PRECAUTION EDUCATION DONE WITH PT. PT VERBALIZES UNDERSTANDING. PT HAS MEDIUM LOOSE/SOFT BOWEL MOVEMENT. MAKAYLA CARE DONE BY THIS RN. FRESH DEPENDS IN PLACE. STAND BY ASSIST UP TO CHAIR. OXGYEN SATRUATION 92%. BREAKFAST DELIVERED. PT EATING BREAKFAST UP TO CHAIR. NO ADDITIONAL REQUESTS OR COMPLAINTS. PTS PRIMARY RN, JOSE, CIERRA.
--- NOTE | 2020-10-21 08:00 | NUR ---
ASSESSMENT DONE. PATIENT IS SITTING UP IN CHAIR EATING BREAKFAST. DENIES FEELING SHORT OF BREATH. STATES SHE IS FEELING BETTER TODAY. LASIX 20 MG IV GIVEN PER ORDERS. TALKED WITH PATIENT ABOUT POC FOR DAY. INDICATES UNDERSTANDING.
--- NOTE | 2020-10-21 10:00 | NUR ---
REMAINS IN CHAIR. IS W/O C/O.
--- NOTE | 2020-10-21 10:09 | NUR ---
LUNCH ORDER PLACED FOR PT. COATES CATHETER BAG NOTED TO BE FULL. EMPTIED OF 1450ML CLEAR LIGHT YELLOW URINE. PT TALKING WITH DAUGHTER, REMAINS UP TO CHAIR. PT DENIES ADDITIONAL REQUESTS OR COMPLAINTS. PTS PRIMARY RN UPDATED.
--- NOTE | 2020-10-21 10:50 | NUR ---
BACK TO BED WITH ASSIST. O2 SAT 85 ON 10 L HIGH FLOW O2. PATIENT IS SLIGHTLY INCREASED SHORTNESS OF BREATH WITH EXERTION. UPON RESTING IN BED FOR APPROX 5 MIN O2 SAT TO 88. HIGH FLOW O2 INCREASED TO 12 L.
--- NOTE | 2020-10-21 11:00 | NUR ---
TO COMMODE TO EXPELL LIQ BROWN STOOL THEN TRANSFERRED TO BED.
--- NOTE | 2020-10-21 11:00 | NUR ---
SLEEPING WITH HOB ELEVATED. NO DISTRESS NOTED. O2 SAT 90.
--- NOTE | 2020-10-21 16:10 | NUR ---
ASSESSMENT DONE. TECHNOLOGY COACH HAS BEEN HERE TO TALK WITH PATIENT ABOUT PLAN AFTER DISCHARGE. PATIENT VERY ANXIOUS AFTER THIS TALK. TOLD ME SHE WILL NOT GO TO [facility], AND SHE DOES NOT WANT TO GO TO [facility]. WILL GIVE VISTARIL AFTER RT GIVES RESP TREATMENT. ON O2 AT 10 L HIGH FLOW NC. DENIES PAIN. COATES CATH PATENT WITH CLEAR YELLOW URINE.
--- NOTE | 2020-10-21 16:30 | NUR ---
spoke with Cielo. She states she does not want to live with her children as they have animals, does not want to go to a SNF, and does not want to go to an [facility]. States she needs to get stablized here and they will go home. Discussed I am concerned about her going home alone. Encouraged her to think of someone who may be able to stay nights with her.
--- NOTE | 2020-10-21 17:30 | NUR ---
TOOK DINNER WELL. DENIES NAUSEA OR PAIN.
--- NOTE | 2020-10-21 18:46 | NUR ---
NO CHANGES, PATIENT SON IS AT BEDSIDE. IS CURRENTLY ON 8 L HIGH FLOW .
--- NOTE | 2020-10-21 19:30 | NUR ---
RECEIVED REPORT FROM DAYSHIFT RNS. pt SITTING UP IN BED. NO REQUESTS AT THIS TIME. CALL LIGHT WITHIN REACH.
--- NOTE | 2020-10-21 20:27 | NUR ---
PATIENT CALLED REQUESTING BR ASSISTANCE. PATIENT WAS TRANSFERRED TO [facility] [place] SUCCESSFULLY, COATES EMPTIED 300 ML OF URINE MEASURED. PATIENT COULD NOT HAVE BM AND WAS TRANSFERRED BACK TO BED. DUE TO EXCESS MOVEMENT, PATIENT BEGAN TO FEEL LIGHT HEADED AND DIZZY. PATIENT NURSE WAS IMMEDIATELY NOTIFIED.
--- NOTE | 2020-10-21 20:38 | NUR ---
PATIENT CALLED REQUESTING A CUP OF COFFEE. A FRESH POT WAS MADE AND PATIENT WAS PROVIDED WITH A CUP.
--- NOTE | 2020-10-21 21:16 | NUR ---
IN TO DO ASSESSMENT. pt DENIES PAIN AT THIS TIME. DENIES SOB. ASSESSMENT DONE. COATES CARE DONE. TIDIED ROOM. CALL LIGHT WITHIN REACH.
--- NOTE | 2020-10-21 22:05 | NUR ---
ANTIBIOTIC INFUSION COMPLETED, SL. pt REPORTED "BREATHING WELL". ALEKSANDAR SHORE IN ROOM TO GIVE IV MED.
--- NOTE | 2020-10-21 22:10 | NUR ---
PATIENT GIVEN SCHEDULED MEDICAITION PER ORDER. PATIENT IS RESTING IN BED WATCHING TV. PATIENT DENIES ANY SOB OR PAIN. NO FURTHER NEEDS NOTED. CALL LIGHT IN REACH.
--- NOTE | 2020-10-21 22:53 | NUR ---
ROUNDED ON pt. SITTING IN BED WATCHING TV AND EATING A SNACK. CALL LIGHT WITHIIN REACH.
--- NOTE | 2020-10-22 00:39 | NUR ---
CALL LIGHT ON. pt UP TO BSC FOR SMEAR BM. COATES EMPTIED. ASSESSMENT DONE. NO CHANGES. pt DENIES PAIN AND SOB WITH AMBULATION. SATS 93% ON 8L HIGH FLOW NC. pt RESTING IN BED. BARRIER CREAM APPLIED TO COCCYX. NO FURTHER REQUESTS AT THIS TIME. CALL LIGHT WITHIN REACH.
--- NOTE | 2020-10-22 06:12 | NUR ---
IN TO DO ASSESSMENT. pt WOKE TO VOICE REPORTED HAVING SLEPT WELL. O2 SAT MID 80'S ON 8L INCREASED TO 10L HIGH FLOW SATS 88-91%. pt DENIES SOB. ASSESSMENT UNCHANGED. CALL LIGHT WITHIN REACH.
--- NOTE | 2020-10-22 08:53 | NUR ---
PATIENT UP TO BSC FOR BM. LINENS CHANGED, COATES EMPTIED. VITALS AND I&OS CHARTED. PATIENT NOW IN RECLINER, RT IN ROOM FOR NEB TREATMENT. CALL LIGHT IN EASY REACH
--- NOTE | 2020-10-22 10:00 | NUR ---
Received call from pt's son, Augusto. He states concerns as his mom is telling nurses and Dr. he and sister will be able to care for her on dc. He states concern as they both work and cannot provide care. He is concerned as pt has changed her DNR status and he states she alway wanted to be a DNR and not be resustitated. He and sister would like to make an appt. for tomorrow to visit with pt and to complete a POA. Informed I will need to discuss with as pt has low sat when she visits. Also discussed I can assist them, but if pt does not want to complete POA or go to a SNF on dc I cannot make her.
--- NOTE | 2020-10-22 10:10 | NUR ---
BEDBATH COMPLETE, NEW GOWN AND BRIEF PROVIDED. PATIENT BACK TO BED. CALL LIGHT IN REACH
--- NOTE | 2020-10-22 10:12 | NUR ---
PATIENT UP IN CHAIR THIS AM AND DOING WELL OVERALL. PT STATES SHE FEELS BETTER THAN SHE HAS, AND HAS ZERO PAIN AT THIS TIME. PATIENT REMAINS ON 8-10L NC AND TOLERATING THIS WELL. PT STILL RECEIVING CPT AND NEB TX PER RT. STILL HAVING PRODUCTIVE SPUTUM AT TIMES. COATES DRAINING DILUTE URINE. PT STATES SHE ATE PRETTY WELL THIS AM HER BREAKFAST. PT STILL HAVING SOME LOOSE BMs BUT LESS THAN SHE WAS HAVING YESTERDAY. HR IN THE 80s, SINUS RHYTHM. CONTINUE TO MONITOR.
--- NOTE | 2020-10-22 13:41 | NUR ---
CRISTO LEAVING FOR CT NOW IN WHEELCHAIR.
--- NOTE | 2020-10-22 14:30 | NUR ---
Spoke with Cielo and updated son and daughter want to visit tomorrow for family meeting and complete POA. Asked if this is something she would want to do and she states she does, but isn't sure if she wants to complete POA. She discussed with son and daughter today. Unclear at this time if they plan to visit or not.
--- NOTE | 2020-10-22 14:50 | NUR ---
Called and spoke with pts son and update she has not decided if she will complete a POA. He states he has discussed with his mom and sister today and they had come to the same conclusion, pt will not sign. Informed they can visit tomorrow if they want and I will assist however I can. If they want to wait until next Tuesday we could also discuss then. I spoke with Dr. Leroy and he reviewed CT scan for today and does not feel pt will need a bronchoscopy. He states SBO has resolved and will turn pt over to hospitalist care.
--- NOTE | 2020-10-22 15:16 | NUR ---
REPORT GIVEN TO ALEKSANDAR VARGAS ON MED/SURG. PATIENT TO BE TRANSFERRED TO MED/SURG W/O TELEMETRY. PT'S SON CIARAN TO BE CALLED AND UPDATED.
--- NOTE | 2020-10-22 15:20 | NUR ---
PATIENT'S SON CIARAN CALLED AND UPDATED ON PT'S MOVEMENT TO MED/SURG.
--- NOTE | 2020-10-22 15:35 | NUR ---
Pt arrives to med surg unit via hospital bed on 8L NC with spo2 at 92% at rest. Assessment complete, pt VSS, A+O with no needs at this time. RT in room to do breathing tx.
--- NOTE | 2020-10-22 15:43 | NUR ---
PATIENT TAKEN TO MED/SURG TO 112 W/O TELEMETRY. PT REMAINS ON 8-10L OF HIGH FLOW 02. ALL BELONGINGS TAKEN WITH PATIENT.
--- NOTE | 2020-10-22 16:00 | NUR ---
Scheduled lasix administered, pt states no SOB on current O2, no pain or needs. Call light in reach
--- NOTE | 2020-10-22 17:30 | NUR ---
Call light answered, pt requests to use BSC. This RN in room to assist, SBA to commode with essentially no assistance needed except to move O2 tubing, goins cath tubing etc. Pt has small smear of BM. Back to bed with no other needs at this time, discussed plan of care to which pt is agreeable. States no SOB or pain. Call light in reach.
--- NOTE | 2020-10-22 18:39 | NUR ---
COATES CATHETER BALLOON DEFLATED OF 9ML SALINE. COATES CATHETER DC'D, TOLERATED WITHOUT COMPLAINTS OF DISCOMFORT. LOVENOX ADMINISTERED AFTER PATIENT EDUCATED ON MEDICATION NEED, POSSIBLE SIDE EFFECTS. VERBALIZES UNDERSTANDING. DENIES OTHER NEEDS AT THIS TIME. CALL LIGHT IN REACH. REMAINS SITTING IN RECLINER AND VERBALIZES HOW GOOD IT FEELS TO SIT UP.
--- NOTE | 2020-10-22 19:57 | NUR ---
PATIENT GIVEN COFFEE THAT WAS REQUESTED. RT IN TO DO BREATHING TREATMENT.
--- NOTE | 2020-10-22 22:00 | NUR ---
PATIENT'S ASSESSMENT COMPLETE. BOTH IV'S NEEDED REPLACED, SO THEY WERE DC'D INTACT AND NEW 22G IV STARTED IN THE LFA. PATIENT'S ICE WATER REFILLED AND CALL LIGHT IS IN REACH. PATIENT HAS NO OTHER CARE NEEDS AT THIS TIME.
--- NOTE | 2020-10-22 23:55 | NUR ---
PATIENT CALLED AND SHE WANTED TO GET UP AND BRUSH HER DENTURES, WHICH SHE DID WITH THIS RN PRESENT. PATIENT ALSO USED THE BEDSIDE COMMODE AND THEN BACK TO THE SINK TO WASH HER HANDS. PATIENT BACK IN BED, ICE WATER REFILLED, AND PATIENT'S CELL PHONE PLUGGED IN. CALL LIGHT IS IN REACH AND NO OTHER CARE NEEDS AT THIS TIME. CALL LIGHT IS IN REACH.
--- NOTE | 2020-10-23 02:00 | NUR ---
PATIENT RESTING QUIETLY ON HER 8L/NC HIGH FLOW. RESPIRATIONS REGULAR AND EVEN, EYES CLOSED, CALL LIGHT IS IN REACH.
--- NOTE | 2020-10-23 04:00 | NUR ---
PATIENT RESTING QUIETLY IN BED ON HER RIGHT SIDE, EYES CLOSED, RESPIRATIONS REGULAR AND EVEN. CALL LIGHT ISIN MICHELLE.
--- NOTE | 2020-10-23 04:30 | NUR ---
PATIENT RESTING QUIETLY TURNED TO HER RIGHT, RESPIRATIONS REGULAR AND EVEN, EYES CLOSED, CALL LIGHT IN REACH.
--- NOTE | 2020-10-23 06:39 | NUR ---
ASSISTED PATIENT TO BSC, PATIENT VOIDED 250. PATIENT BED WAS PUT BACK TOGETHER, TRASH EMPTIED, ROOM ORGANIZED, AND CALL LIGHT LEFT WITHIN REACH.
--- NOTE | 2020-10-23 08:00 | NUR ---
Spoke with pts son as he is on his way into visit mom. Asked if they would still like to have meeting with his mom. He denies as he feels it causes to much anxiety.
--- NOTE | 2020-10-23 12:14 | NUR ---
PT. USED CALL LIGHT FOR ASSISTANCE. 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 PT. STATES AFTER HAVING A BITE OF PASTA AND COULD NOT SWALLOW. SHE REPORTS THAT SHE COULD NOT BREATH. O2 SAT IS 89% ON 6L. TITRATED TO 7L. PT. ASSISTED WITH SITTING UPRIGHT. LUNG SOUNDS DIM. IN THE LOWER LOBES BILATERALLY. RR IS 23. PT. REPORTS SHE IS FEELING BETTER AFTER A FEW MINUTES AND REQUESTS TO FINISH LUNCH. DISCUSSED SAFETY AND LEFT SITTING UPRIGHT WITH CALL LIGHT IN REACH AND CURTAIN OPEN.
--- NOTE | 2020-10-23 17:51 | NUR ---
ROUNDING ON PT. AND 02 SAT WAS 86% AFTER EATING. ENCOURAGED TO TAKE DEEP BREATHES. SAT INCREASED TO 87%. TITRATED O2 HIGH FLOW NC TO 8L. 02 SAT INCREASED TO 90%. PT. ASSISTED WITH REMOVING TRAY AND LEFT RESTING WITH CALL LIGHT IN REACH.
--- NOTE | 2020-10-23 20:35 | NUR ---
IN TO ASSIST PT TO THE BSC, PT SBA, VITALS DONE, ICE WATER REFRESHED, NO FURTHER NEEDS AT THIS TIME
--- NOTE | 2020-10-23 20:45 | NUR ---
PT RECIEVES A PHONE CALL FROM HER RELITIVE, PT ACCEPTS THE CALL, CALL TRANSFERRED INTO PT RM
--- NOTE | 2020-10-24 00:18 | NUR ---
O2 8LNC, UP TO BSC, VOIDED, BACK TO BED, SOB WITH EXERTION NOTED, BACK TO BED, SBA. IV ABX INFUSING W/O PROBLEMS. TOLERATING FLUIDS AWELL, ELAINE LA REQUESTS, NO C/O PAIN. RT IN ROOM.
--- NOTE | 2020-10-24 02:04 | NUR ---
WARM BLANKET GIVEN ON REQUESTS. NO C/O PAIN. CONT ON HIGH FLOW 8L NC. TURNS AND REPOSITIONS SELF IN BED. SL. CALL LIGHT AND FLUIDS AT BEDSIDE
--- NOTE | 2020-10-24 05:22 | NUR ---
PT HAS BEEN AWAKE MOST OF THIS SHIFT, DENIES C/O PAIN. CONTINUES ON 8L HIGH FLOW O2, SOB NOTED WITH EXERTION WHEN UP TO BSC, VOIDED QS DARK YELLOW URINE. SL PATENT. NO C/O ADVERSER EACTION TO IV ABX. OCCASIONAL COUGH PRESENT. TOLERATING LIQUIDS AND DIET WELL, NO EMESIS. ON AEROSOL PRECAUTIONS WHEN GETTING NEB TX. COOPERATIVE, PLEASANT, HAS USED CALL LIGHT APPROPRIATELY,
--- NOTE | 2020-10-24 05:52 | NUR ---
0545 - O2 weaned down from 8L high flow to 6 liter high flow, sasts 94-95% 0550 - O2 weaned down from 6L to 5L,, sasts 94-95%
--- NOTE | 2020-10-24 05:54 | NUR ---
O2 weaned down to 4L high flow at this time, sats 91-93%, tolerating well, no sob when turning in bed
--- NOTE | 2020-10-24 06:14 | NUR ---
Pt on 4L high flow O2, up to BSC with pulse ocx in place, dropped to 89% and went back up to 90-91%. staying steady at 91-92%, much better tolerance from bsc to bed, sat edge of bed for a few minutes, then backa to bed, sats stayed steady 91-92%. fresh fluids and call light at hands reach, acapella at bedside
--- NOTE | 2020-10-24 07:15 | NUR ---
THIS CLINICAL ASSISTANT PROFESSOR HELPED PT USE THE BSC. THIS CLINICAL ASSISTANT PROFESSOR THEN HELPED PT TO THE RECLINER FOR BREAKFAST. PT WAS GIVEN A WARM WASHCLOTH FOR THEIR FACE. PT ALSO RECIEVED A WARM BLANKET. PT REPORTED FEELING NAUSEOUS, THIS CLINICAL ASSISTANT PROFESSOR WILL REPORT TO ALEKSANDAR HERNANDEZ. WHITEBOARD IS UPDATED, CALL LIGHT IS WITHIN REACH. NO FURTHER NEEDS AT THIS TIME.
--- NOTE | 2020-10-24 10:00 | NUR ---
Attempted to see pt after speaking with RN. She states pt is not feeling well today. PT is attempting to work with pt and she is not feeling well. Will speak with her when I return after the Holiday weekend.
--- NOTE | 2020-10-24 10:09 | NUR ---
PT. REPORTS CONTINUED NAUSEA AND ACHING PAIN IN RIGHT ABDOMEN. BOWEL TONES RARE THROUGHOUT AND ABDOMEN MODERATELY DISTENDED. MD NOTIFIED. ONE TIME DOSE OF IVP ZOFRAN ORDERED. WILL CONTINUE TO MONITOR.
--- NOTE | 2020-10-24 11:32 | NUR ---
PT. VOMITED 200ML OF BROWN, LIQUID EMESIS. SHE REPORTS ABDOMINAL PAIN IS SHARPER AND ABDOMEN IS DISTENDED. MD NOTIFIED AND KUB XRAY ORDERED. WILL CONTINUE TO MONITOR.
--- NOTE | 2020-10-24 11:59 | NUR ---
ROUNDING ON PT. SHE IS ON THE COMMODE TRYING TO HAVE A BM AND CONTINUES TO VOMIT. AWAITING IMAGING. PT. LEFT ON COMMODE WITH DAUGHTER AND NIECE AT SIDE. WILL CONTINUE TO MONITOR.
--- NOTE | 2020-10-24 14:57 | NUR ---
ROUNDING ON PT. SHE REPORTS MORPHINE HAS RELIEVED PAIN AND DENIES FURTHER NEEDS.
--- NOTE | 2020-10-24 16:49 | NUR ---
ROUNDING ON PT. SHE DENIES PAIN AT THIS TIME AND STATES SHE HOPES WHATEVER THE CAUSE OF HER OBSTRUCTION IS FIXED. RESPIRATIONS ARE EVEN AND UNLABORED. LEFT RESTING WITH CALL LIGHT IN REACH.
--- NOTE | 2020-10-24 18:09 | NUR ---
ROUNDING ON PT. SHE VOIDED 400ML IN BEDSIDE COMMODE. PT. STATES SHE GOT BACK INTO BED HERSELF. DISCUSSED SAFETY AND USING CALL LIGHT WITH PT. AND SHE AGREED. LEFT RESTING WITH CALL LIGHT IN REACH.
--- NOTE | 2020-10-24 19:37 | NUR ---
PT NPO AND WITHOUT FLUIDS RUNNING. DR NYE NOTIFIED. NO NEW ORDERS. CALL ALSO MADE TO DR VERDUZCO. REPORTS HE IS IN HOUSE AND IS COMING TO SEE THE PT SHORTLY. VERBAL ORDER RECEIVED FOR LR AT 75ML/HR TO START NOW.
--- NOTE | 2020-10-24 21:30 | NUR ---
PATIENT RESTING QUIETLY IN BED LAYING SUPINE. PATIENT SAYS SHE IS HAVING 3/10 ABD PAIN, BUT DOES NOT WANT TO TAKE ANY PAIN MEDICATION. PATIENT REMAINS NPO AND HER CALL LIGHT IS IN REACH.
--- NOTE | 2020-10-24 22:50 | NUR ---
IN TO GET VITALS, RECENTLY ASSISTED PT TO THE BSC, SBA PIVOT, NO FURTHER NEEDS AT THIS TIME, PT IS READY FOR RN AND NIGHT MEDS, PT SITS UP AT THE EDEG OF THE BED, TABLE IN REACH
--- NOTE | 2020-10-24 22:55 | NUR ---
PATIENT STILL DECLINES PAIN MEDICATION FOR ABD PAIN 04/30. EVENING IV MEDS GIVEN, AND BP MEDICATION WITH A SIP OF WATER. PATIENT DENIES NAUSEA. PATIENT HAS NO OTHER NEEDS AT THIS TIME. ASSESSMENT IS COMPLETE AND CALL LIGHT IS IN REACH.
--- NOTE | 2020-10-25 00:56 | NUR ---
IN TO ASSIST PT TO THE BSC, SBA PIVOT, NO FURTHER NEEDS
--- NOTE | 2020-10-25 03:00 | NUR ---
PATIENT RESTING QUIETLY SUPINE IN BED WATCHING TV. PATIENT DENIES THE NEED FOR PAIN MEDICATION AND HAS NO NAUSEA. PATIENT REMAINS NPO AND CALL LIGHT IS IN REACH.
--- NOTE | 2020-10-25 04:07 | NUR ---
PATIENT RESTING QUIETLY WITH EQUAL AND REGULAR RESPIRATION, EYES ARE CLOSED, AND CALL LIGHT IS IN REACH.
--- NOTE | 2020-10-25 06:38 | NUR ---
PATIENT MAINTAINS ABD PAIN 3/10 AND DOES NOT WANT TO TAKE ANY PAIN MEDICATION. BOWEL TONES ARE RARE TO NONE IN ALL QUADS. PATIENT REMAINS ON O2 AT 3L/NC WHICH IS HER CHRONIC RATE. PATIENT HAS NO OTHER CARE NEEDS AT THIS TIME. CALL LIGHT IS IN REACH.
--- NOTE | 2020-10-25 06:57 | NUR ---
ASSISTED PATIENT TO BSC, IS AND OS CHARTED, VITALS CHARTED, TRASH EMPTIED, WARM BLANKET PROVIDED, FRESH ICE WATER PROVIDED, CALL LIGHT LEFT WITHIN REACH.
--- NOTE | 2020-10-25 07:15 | NUR ---
Report received from Johnie HUERTAS. Pt resting in bed with eyes closed, respirations even and unlabored, no needs identified at this time, will continue plan of care.
--- NOTE | 2020-10-25 09:25 | NUR ---
Scheduled medications and gastrograffin administered with 20ml juice. IVF infusing WNL. Assessment complete, pt states no pain or needs at this time. Tolerates pills and juice with no nausea. On 3L O2 NC currently. Using call light appropriately, no further needs.
--- NOTE | 2020-10-25 10:20 | NUR ---
IV ABX infusing WNL. Pt states no needs at this time. Call light in reach.
--- NOTE | 2020-10-25 12:25 | NUR ---
PT UP TO COMMODE AT BEDSIDE. CALL LIGHT WITHIN REACH. PT TRANSFERED INDEPENDENTLY. NO FURTHER NEEDS AT THIS TIME.
--- NOTE | 2020-10-25 12:31 | NUR ---
PT laying down in bed, c/o nausea, Zofran given per pt request, pt denies further needs.
--- NOTE | 2020-10-25 14:00 | NUR ---
Per MD order, goins catheter inserted for urinary retention, pt tolerates well. NGT tube also inserted by Dr Camacho, pt tolerated well. Connected to CWS.
--- NOTE | 2020-10-25 14:29 | NUR ---
Patient vitals, I&Os are complete. There are no requests and the call light is in reach. Patient is visiting with her daughter.
--- NOTE | 2020-10-25 15:00 | NUR ---
Patient to OR. NGT and goins in place. LR on straight tubing, pre procedure checklist complete with wipedown. Vj BETANCUR in room. Consent signed, pt has no questions and is knowledgeable about procedure.
--- NOTE | 2020-10-25 18:20 | NUR ---
10/25/20 1820 Angelica,Selene 1806 PT ARRIVED TO PACU WITH ORAL AIRWAY IN PLACE, 6L VIA MASK IN PLACE. PT NONAROUSABLE TO PAINFUL STIMULI. RESP EVEN AND UNLABORED.
--- NOTE | 2020-10-25 19:20 | NUR ---
PATIENT IS BACK FROM [facility]. PATIENT TAKING VERY SHALLOW BREATHS AND OXYMASK INCREASED TO 12L/MIN. PATIENT'S DAUGHTER AT BEDSIDE. SATS=91%. CALL LIGHT IN REACH. VS STABLE EXCEPT B/P IS A LITTLE SOFT AND WILL BE MONITORED. PATIENT DENIES PAIN AT THIS TIME. CALL IS IN REACH.
--- NOTE | 2020-10-25 19:39 | NUR ---
G-TUBE DRAINAGE DARK GREEN
--- NOTE | 2020-10-25 21:04 | NUR ---
PATIENT HAVING 6/10 ABD PAIN AND SOME NAUSEA. 2MG MS GIVEN SIVP AND 4MG ZOFRAN SIVP. PATIENT ALSO SUCKING ON AN ICE CHIP. BOWEL TONES REMAIN ABSENT.WARM BLANKET GIVEN. B/P STABLE AND OXYMASK TITRATED FROM 12L/MIN TO 6L/MIN. CALL LIGHT IS IN REACH.
--- NOTE | 2020-10-25 21:35 | NUR ---
PATIENT'S PAIN CONTROLLED AT THE MOMENT AND NAUSEA HAS PASSED. PATIENT IS RESTING QUIETLY EYES CLOSED, VS STABLE, O2 SAT 90-94 ON 3L/OXYMASK TITRATED DOWN FROM 6L/MIN. CALL LIGHT IS IN REACH.
--- NOTE | 2020-10-25 22:07 | NUR ---
PATIENT'S O2 SATS DROPPED TO 84% ON 3L/OXYMASK WHILE SLEEPING. O2 TITRATED BACK TO 6L/OXYMASK. CALL LIGHT IS IN REACH.
--- NOTE | 2020-10-25 23:00 | NUR ---
PATIENT REQUESTED PAIN MEDICATION FOR ABD PAIN 04/30 AND 2MG IV MS GIVEN SIVP. PM PO MEDS HELD DUE TO PREVIOUS NAUSEA AND PATIENT HAVING A BORDERLINE LOW B/P. CALL LIGHT IS IN REACH. O2 SATS 92% ON 6L/OXYMASK.
--- NOTE | 2020-10-26 01:25 | NUR ---
PATIENT STILL HAS NO BOWEL TONES PER ASCULTATION. G-TUBE IRRIGATED WITH 30MLS TAPE WATER FOR PATENCY. PATIENT DENIES THE NEED FOR ANY PAIN MEDICATION AT THIS TIME VS REMAIN STABLE, LIGHTS TURNED DOWN AND CALL LIGHT IS IN REACH.
--- NOTE | 2020-10-26 03:06 | NUR ---
PATIENT HAS BEEN RESTING QUIETLY. LAZARA DRESSING HAS RED SHADOWING THROUGH THE DRESSING AND THERE IS SHADOWING ON THE MIDLINE ACTICOAT DRESSING WELL. PATIENT DENIES THE NEED FOR ANY PAIN MEDICATION AT THIS TIME. LIGHTS ARE TURNED DOWN AND O2 TITRATED TO 5L/OXYMASK AT 91% SATS. CALL LIGHT IS IN REACH.
--- NOTE | 2020-10-26 05:30 | NUR ---
PATIENT RESTING QUITELY ON 5L/OXYMASK WITH SATS OF 91%, EYES ARE CLOSED, RESPIRATIONS ARE REGULAR AND EVEN, CALL LIGHT IS IN REACH.
--- NOTE | 2020-10-26 07:05 | NUR ---
Report received from Johnie HUERTAS. Pt up to BSC with 2PA, tolerates well and only needs assistance with tubing and lines. IVF infusing WNL. G tube, LAZARA WNL, emptied. Benavides WNL. Pt has no needs at this time, received pain medication from nightshift RN, call light in reach. Will continue plan of care.
--- NOTE | 2020-10-26 07:12 | NUR ---
PATIENT WAS HAVING PAIN 3/10 AND WANTED PAIN MEDICATION. 2MG MS GIVEN SIVP AND THEN THE PATIENT GOT NAUSEATED AND HAD TO BE GIVEN 4MG IV ZOFRAN SIVP. PATIENT THEN WANTED TO GET UP BECAUSE SHE FELT LIKE SHE NEEDED TO HAVE A BOWEL MOVEMENT. ALEKSANDAR VARGAS ASSISTING THIS RN WITH PATIENT UP TO THE BEDSIDE COMMODE. PATIENT HAD NO RESULT AND WAS ASSISTED BACK TO BED BY THIS RN. PATIENT'S PAIN IS DECREASING AND NAUSEA IS GETTING BETTER. FINISHED REPORT TO ALEKSANDAR VARGAS. PATIENT REMAINS ON 5L/OXYMASK AT THIS TIME. CALL LIGHT IS IN REACH.
--- NOTE | 2020-10-26 09:25 | NUR ---
Scheduled medications administered, assessment complete. IVF infusing WNL. Pt denies pain at time, discussed pain control options and pt agreeable to plan. Pt sips apple juice. VSS, A+0.
--- NOTE | 2020-10-26 09:57 | NUR ---
PATIENT IN BED RESTING AND SLOWLY WORKING ON BREAKFAST. VITALS AND I&O'S CHARTED. WARM WASHCLOTH GIVEN. CALL LIGHT IN REACH. NO FURTHER NEEDS AT THIS TIME. PATIENT REFUSED GETTING TO THE CHAIR SHE IS TOO TIRED.
--- NOTE | 2020-10-26 11:10 | NUR ---
Pt's son alerts this RN that pt would like pain medication, administered 2mg IV morphine for 3/10 abdominal pain. Pt states that her last admin of this medication was "very effective". Reports wanting to rest at this time, call light in reach, no other needs.
--- NOTE | 2020-10-26 14:40 | NUR ---
Scheduled ABX infusing. Pt states having 10/10 pain in abdomen, drains and dressings WNL, 2mg morphine administered along with PRN zofran for nausea. LAZARA emptied, serosanguinous fluid (20ml) and scant green drainage noted in g tube. Benavides emptied and 75 dark urine emptied. Pt asks this RN to stay in room with her at this time.
--- NOTE | 2020-10-26 15:51 | NUR ---
Dr Leroy notified regarding patient pain level, orders for RESTAURANT ASSISTANT MANAGER pump received and read back for clarification.
--- NOTE | 2020-10-26 17:45 | NUR ---
Pt drinks approx 200ml of tea, juice, and is able to tolerate jello. She reports no needs at this time, VSS and I/O's recorded.
--- NOTE | 2020-10-26 17:54 | NUR ---
PATIENT IN BED WATCHING TV. RN IN ROOM. VITALS AND I&O'S CHARTED. CALL LIGHT IN REACH. NO FURTHER NEEDS AT THIS TIME.
--- NOTE | 2020-10-26 18:30 | NUR ---
FORMAL WEAR RENTAL CLERK pump set up after verification with rn relief charge and pharmacist. Pt educated extensively on FORMAL WEAR RENTAL CLERK use and protocol, she verbalizes understanding and demonstrates knowledge. RR WNL, states pain 6-7/10, is awake and alert. CPOX in place, spo2 94% on 4L O2 NC. Call light in reach, will continue to monitor.
--- NOTE | 2020-10-26 19:29 | NUR ---
PATIENT UP TO THE BEDSIDE COMMODE WITH ENGINE HOUSE HELPER. PATIENT NAUSEATED AND GIVEN 4MG IV ZOFRAN. PATIENT LEFT IN CARE OF ENGINE HOUSE HELPER.
--- NOTE | 2020-10-26 19:50 | NUR ---
PATIENT CALLED TO USE BSC. UP TO BSC, 1PA. PATIENT COMPLAINED OF BEING SICK TO HER STOMACHE, RN NOTIFED. RN IN RIZO TO GIVE MEDS. PATIENT SAID SHE COULDN'T GO AND HER BLADDER FELT FULL, PATIENT HAS A COATES. TALKED WITH PATIENT ABOUT COATES AND VOIDING, PATIENT THEN WANTED TO GO BACK TO BED TO RELAX IN HOPES THAT THAT WOULD HELP. BACK TO BED, 1PA. RN IN ROOM TO HELP BOOST PATIENT. CALL LIIGHT IN REACH. NO FURTHER NEEDS AT THIS TIME.
--- NOTE | 2020-10-26 21:10 | NUR ---
PATIENT RESTING QUIETLY IN SEMI-FOWLERS POSITION, RESPIRATIONS ARE REGULAR AND EVEN, EYES ARE CLOSED, NC IS ON AND SATS 91-92%. CALL LIGHT IS IN REACH.
--- NOTE | 2020-10-26 23:00 | NUR ---
PATIENT'S PM ASSESSMET COMPLETE. LFA IV INFILTRATED AND IV DC'D INTACT. NEW IV PLACED IN THE RAC. 22G FLUSHES WELL AND GOOD FLASH WITH START. PATIENT'S I+0 COMPLETE AND VS ARE STABLE PATIENT HAS ONLY USED 2MG OF HER ORACLE PL SQL DEVELOPER SINCE IT WAS STARTED AND INFORMED ME HER PAIN IS WELL CONTROLLED. CALL LIGHT IS IN REACH AND PATIENT HAS NO OTHER CARE NEEDS AT THIS TIME.
--- NOTE | 2020-10-27 01:05 | NUR ---
PATIENT RESTING QUIETLY IN BED IN SEMI-FOWLERS POSITION, EYES CLOSED, RESPIRATIONS ARE REGULAR AND EVEN, AND CALL LIGHT IS IN REACH.
--- NOTE | 2020-10-27 01:57 | NUR ---
PATIENT'S IV SITE STILL LOOKS GOOD, PATIENT DENIES ANY PAIN AT THIS TIME AND JUST WANTS TO SLEEP. LIGHTS TURNED DOWN AT PATIENT'S REQUEST AND CALL LIGHT IS IN REACH.
--- NOTE | 2020-10-27 03:32 | NUR ---
PATIENT NAUSEATED AND GIVEN 4MG OF SIVP ZOFRAN. TURNED DOWN LIGHTS FOR PATIENT AND CALL LIGHT IS IN REACH.
--- NOTE | 2020-10-27 03:53 | NUR ---
COATES CARE DONE.
--- NOTE | 2020-10-27 06:00 | NUR ---
PATIENT IS RESTING WITH HER EYES CLOSED, RESPIRATIONS REGULAR AND EVEN, SATS 92% ON 4L/NC. PATIENT'S CALL LIGHT IS IN REACH.
--- NOTE | 2020-10-27 06:45 | NUR ---
PATIENT UP TO THE BEDSIDE COMMODE FROM BED AND THEN TO THE BEDSIDE ARMCHAIR. PATIENT WAS ON 4L/NC AND SATS DROPPED TO 86% AND PATIENT DID NOT COMPENSATE SO O2 LEFT AT 7L/NC AT THIS TIME WITH SATS AT 91%. PATIENT HAS ONLY USED 4MG OF MORPHINE ALL NIGHT FROM HER HOUSE PARENT. PATIENT IS AFRAID OF USING THE MORHPINE, BECAUSE SHE IS AFRAID SHE WILL STOP BREATHING. PATIENT HAS BEEN ENCOURAGED ALL SHIFT TO USE HER HOUSE PARENT FOR PAIN. WHEN ASKING THE PATIENT IF SHE IS HAVING PAIN SHE WILL OFTEN SAY NO EVEN WHEN SHE CLEARLY LOOKS UNCOMFORTABLE, AND SAYS ABOUT THE MORPHINE,"I DON'T NEED IT". PATIENT'S CALL LIGHT IS IN REACH AND THIS RN IS PREPARING FOR REPORT.
--- NOTE | 2020-10-27 07:05 | NUR ---
Report received from Johnie HUERTAS. Pt has increased WOB, educated regarding pain control and respiratory support with SERVICE CLERK pump and oxygen as pt seems very anxious. She states "I feel like I'm going to from this" and when asked, states "the surgery and everything". This RN sits at bedside and discusses patient's concerns, all questions answered and pt calms. States no needs at this time, spo2 WNL, will continue plan ofcare.
--- NOTE | 2020-10-27 07:20 | NUR ---
ALEKSANDAR VARGAS AND THIS RN HAVE BEEN GIVING BEDSIDE REPORT AND TRYING TO ENCOURAGE PATIENT TO USE HER LABORER MARINE TERMINAL. PATIENT IS SLIGHTLY TEARFUL AND DOES NOT WANT TO USE HER PAIN MEDICATION, SHE IS AFRAID SHE WILL FALL ASLEEP AND STOP BREATHING. PATIENT EMAINS ON 7L/NC ON HER O2 AND IS ANXIOUS ENOUGH SATS ARE DROPPING TO 88% AND NC SWITCHED TO 7L/OXYMASK. ALEKSANDAR VARGAS CONSOLING PATIENT. PATIENT A BIT CALMER AND ROOM CURTAIN LEFT OPEN SO PATIENT CAN SEE OUT AND PATIENT'S CALL LIGHT IS IN HER LAP.
--- NOTE | 2020-10-27 08:28 | NUR ---
PT WAS SITTING IN CHAIR WITH RT IN ROOM. REPORTING NOT FEELING WELL AND PRESSURE\PAIN IN CHEST. ASSISTED BACK TO BED AND EKG WAS DONE. CALLED RAQUEL VERDUZCO AND PARRIS, CONTINUE TO MONITOR. PT CALLED SON CIARAN TO COME IN AND SIT WITH HER. PT STATES THAT SHE FEELS A LITTLE BETTER NOW, BACK IN BED. REEDUCATED ON HR CONSULTANT PUMP AND USAGE OF IT. VS STABLE AND REPORTED TO AND PRIMARY RN JANUSZ.
--- NOTE | 2020-10-27 08:40 | NUR ---
This RN in room for medication administration and assessment. Pt is anxious, increased work of breathing noted and pt encouraged to use BUTTONER pump as she c/o increasing ABD pain. Counseled once more regarding safety of medication and continuous respiratory monitoring. IVF infusing WNL, ABX and maintenance fluid, IV ofirmev administered as well. Pt has episodes of SPO2 drops to 75-80's range, encouraged to deep breathe, multiple variations of O2 admin (cannula, oxymask) and CPOX monitoring troubleshooting attempted. RT in room, full charge bookkeeper aware. Pt ultimately uses BUTTONER pump, takes deep breaths, and recovers to 90% on 6L oxymask. Son at bedside and updated on patient condition and plan of care. Pt c/o sore tailbone. Coccyx visualized, small pressure tear on L inner gluteal cleft, allevyn applied and hips floated on pillows. Pt begins drinking her tea and eating jello. Remains on oxymask, son in room, no other needs.
--- NOTE | 2020-10-27 10:15 | NUR ---
Rounded on patient who is continuing to eat jello. CPOX in place, sp02 91% on 6L oxymask. She has no needs at this time, son at bedside. Call light in reach, IVF infusing WNL, will continue to monitor
--- NOTE | 2020-10-27 11:10 | NUR ---
PATIENT IN BED RESTING AT THIS TIME. COATES AND DRAINS EMPTIED. PATIENT WANTS TO TAKE A NAP. CALL LIGHT IN REACH. NO FURTHER NEEDS AT THIS TIME.
--- NOTE | 2020-10-27 12:30 | NUR ---
Pt continues to have low oxygen sats at 82-88% range in general, when reminded to deep breathe she returns to 90-92% on 6L oxymask/nasal cannula back and forth while eating etc. This RN frequently in room to remind patient to consciously take deep breaths. She complies. Call light in reach.
--- NOTE | 2020-10-27 13:40 | NUR ---
Pt works with physical therapist while this RN in room. She tolerates fair to well, requiring several breaks to return to >85% oxygen saturation but recovers quickly. Able to walk around room, back to chair, and ultimately back to bed. IVF infusing WNL. G tube draining to gravity WNL, site C/D/I. LAZARA drain pinned to gown and draining WNL, site C/D/I. Pt's biggest concern is intermittent inability to catch her breath, this RN counsels extensively.
--- NOTE | 2020-10-27 14:36 | NUR ---
PATIENT IN BED WATCHING TV. VITALS AND I&O'S CHARTED. FRESH WATER GIVEN. CALL LIGHT IN REACH. NO FURTHER NEEDS AT THIS TIME.
--- NOTE | 2020-10-27 17:00 | NUR ---
Entered pt's room to bring ensure, pt has high anxiety levels and is having trouble catching her breath. Sheryl HUERTAS is at bedside and coaxing patient with breathing technique, calming pt. Son also at bedside assisting with this. HRR, SPO2 80-89% on 6L NC, recovers to 90% with calm breaths through nose. Pt uses VICE PRESIDENT PLANNING at this time which seems to bring down anxiety, reduce pain. Pt's son states he feels patient allows herself to get "out of control with pain" which spurs on the labored breathing. Pt agrees. IV Ofirmev administered at this time as well. Pt calms, agrees to drink ensure, G tube clamped at this time and will continue plan of care per Dr Leroy's orders.
--- NOTE | 2020-10-27 18:05 | NUR ---
PATIENT IN BED. VITALS AND I&O'S CHARTED. LAZARA DRAIN CHECKED AND HAD NO OUTPUT. PATIENT STILL WORKING ON DINNER. CALL LIGHT IN REACH. NO FURTHER NEEDS AT THIS TIME.
--- NOTE | 2020-10-27 20:00 | NUR ---
DURING SHIFT REPORT, ABDOMEN WAS VISUALIZED AND MIDLINE DRESSING WAS SATURATED WITH HEIDI RED BLOOD DRAINING OUT OF BANDAGE AND TO LAZARA INSERTION SITE. NURSE ALICIA CALLED DR VERDUZCO AND HE WOULD LIKE BANDAGE REMOVED. UPON REMOVING BANDAGE, LARGE BLOOD CLOTS SEEN ALONG WITH ACTIVE BLEEDING. LARGE CLOT LEFT, ABD PAD USED TO ABSORB BLOOD AND MODERATE PRESSURE APPLIED. DR VERDUZCO ON HIS WAY TO ASSESS PT.
--- NOTE | 2020-10-27 20:35 | NUR ---
PT WOULD LIKE HER SON AND DAUGHTER CALLED TO COME IN. PT'S SON IS COMING TO SEE PT.
--- NOTE | 2020-10-27 21:15 | NUR ---
IN ROOM TO CHANGE OYSTER CULLER MORPHINE. PT'S SON IS IN THE ROOM. PT IS CALM WITH HER SON IN THE ROOM, SEEMS MORE RELAXED. WILL CONTINUE TO MONITOR
--- NOTE | 2020-10-27 21:20 | NUR ---
PT CALLED, IV ALARMING. NO OTHER NEEDS
--- NOTE | 2020-10-27 21:30 | NUR ---
NEB TREATMENT GIVEN PER ORDER.
--- NOTE | 2020-10-27 21:31 | NUR ---
IN ROOM TO DO NEB TREATMENT. PT SON HAS LEFT ROOM. O2 SATS 94%
--- NOTE | 2020-10-27 22:00 | NUR ---
CALL LIGHT ANSWERED. PATIENT WANTING TO BE OFF FROM THE SCD'S FOR A WHILE. DONE. RN WAS AWARE.
--- NOTE | 2020-10-27 22:00 | NUR ---
EVENING ASSESSMENT PERFORMED. MIDLINE INCISION HAS JUST SMALL AMOUNT OF BLEEDING NEAR STAPLE INSERTION AREAS. SKIN AROUND MIDLINE WASHED WITH WARM WATER TO CLEAR DRIED BLOOD ON ABDOMEN. LAID GAUZE ON INCISION. GTUBE DRAINING STOMACH CONTENTS; PINK IN COLOR (FROM ENSURE?). URINE OUTPUT QS. COATES CARE PERFORMED. CMS INTACT, LUNG SOUNDS CLEAR, BREATHING IS LABORED. PT IS WEARING BOTH NC AND OXYMASK. NC REMOVED; 7L OXYMASK FOR NOW. IVF INFUSING PER ORDER. PT ENJOYS NURSING STAFF IN ROOM IT EASES HER ANXIETY. PT REPORTS NO PASSING GAS AT THIS TIME.
--- NOTE | 2020-10-27 22:20 | NUR ---
NEW IV FLUIDS AND SCHEDULED IV ABX HUNG. CPOX EAR MONITOR OFF, REPLACED; SPO2 93% ON 7L OXYMASK
--- NOTE | 2020-10-28 00:25 | NUR ---
IN ROOM TO ADMINSTER 0.5MG PRN ATIVAN IV. PT HAS BEEN CALLING FREQUENTLY ASKING TO "REMOVE CORDS FROM ME". PT IS RESTLESS AND AGITATED WITH MONITORS, IV LINE, GTUBE AND COATES. PT AGREES TO "TRY" ATIVAN. CALL LIGHT WITHIN REACH, CPOX ON.
--- NOTE | 2020-10-28 01:01 | NUR ---
CHECKED ON PT; PT APPEARS TO BE SLEEPING. EYES CLOSED, EVEN RR. SPO2 92% ON 7L OXYMASK. CALL LIGHT WITHIN REACH
--- NOTE | 2020-10-28 02:09 | NUR ---
CHECKED ON PT; PT SLEEPING WELL WITH EYES CLOSED, EVEN RR NOTED. WORK OF BREATHING HAS IMPROVED. SPO2 94% ON 7L OXYMASK. PT HAS PHARMACY DELIVERY DRIVER PUMP BUTTON IN HAND. CALL LIGHT WITHIN REACH.
--- NOTE | 2020-10-28 03:46 | NUR ---
CPOX ALARMING. PT HAD PUSHED OXYMASK AWAY FROM FACE. SPO2 78%; PT QUICKLY RECOVERS WITH OXYMASK BACK ON 7L. SPO2 WITH MASK 94%
--- NOTE | 2020-10-28 04:22 | NUR ---
CPOX ALARMING. PT HAD PULLED MASK AWAY FROM FACE AGAIN. SPO2 79%; PT RECOVERS QUICKLY WITH MASK BACK ON. IV PUMP ALARMING OCCLUSION; PROBLEM SOLVED. CALL LIGHT WITHIN REACH
--- NOTE | 2020-10-28 06:25 | NUR ---
IN ROOM FOR MORNING VITALS AND ASSESSMENT. PT IS STILL DROWSY; STATES SHE HASNT SLEPT WELL BUT PT SEEN SLEEPING SEVERAL HOURS OF NIGHT. URINE OUTPUT QS, GTUBE HAS 25ML NEARLY CLEAR LIQUID OUTPUT, LAZARA 0/SCANT DRAINAGE. MINIMAL DRAINAGE CONTINUES AROUND LAZARA INSERTION SITE. PT HAS BEEN LAYING RT LATERAL FOR A COUPLE HOURS; SWITCHED PT BACK TO OXY MASK FROM MD SHE IS NOW MORE OPEN MOUTH BREATHING. O2 SATS CONTINUE TO FLUCUATE BUT IN GENERAL ARE 87-94%. PT HAS USED VERY LITTLE OF SILVER LAP MACHINE TENDER PUMP THIS SHIFT. CALL LIGHT WITHIN REACH. NO FURTHER CARE NEEDS AT THIS TIME.
--- NOTE | 2020-10-28 07:05 | NUR ---
Report received from Tomasa HUERTAS. Pt resting in bed, drowsy but reports no pain or needs at this time. IVF infusing WNL. 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 Respirations even and unlabored, spo2 93% on 7l OM.
--- NOTE | 2020-10-28 08:25 | NUR ---
Scheduled medications administered, assessment complete. Pt resting in bed, drowsy but states no pain. Spo2 85-93% on 7L OM. G tube draining WNL, LAZARA WNL and dressings C/D/I. Pt braces ABD with pillow when coughing. Lung sounds clear, HRR, bowel tones active. IVF infusing WNL.
--- NOTE | 2020-10-28 09:15 | NUR ---
Attempted to see pt and she is sleeping soundly. Not awakened. Per 829 report, pt cont. to plan on dc to home. She was returned to 13L 02 last night. I do not see how this will be possible. Will cont. to work with pt and family.
--- NOTE | 2020-10-28 09:57 | NUR ---
PATIENT IN BED RESTING WITH EYES CLOSED. VITALS AND I&O'S CHARTED. LAZARA DRAIN EMPTIED. CALL LIGHT IN REACH. NO FURTHER NEEDS AT THIS TIME.
--- NOTE | 2020-10-28 12:30 | NUR ---
Rounded on patient who is resting in bed, drowsy, awakens to voice but falls back to sleep. SPO2 WNL at 93% on 6L O2. IVF infusing WNL. No needs identified at this time.
--- NOTE | 2020-10-28 14:30 | NUR ---
In room for assessment, and pt's daughter is here. Patient has been increasingly agitated, frustrated with situation, and states that "she isn't seeing any progress" and "feels overwhelmed". This RN in room and extensively counsels regarding increase in oxygen saturation on lower amount of o2 (pt reached 100% on 5L OM), repeat CXR, removal of goins catheter, decrease in g tube output, requirement of less pain medication, completion of antibiotics. Pt uses BSC, has not voided since goins out. Gauze applied to midline incision and around LAZARA drain as small amount leaking noted. Pt back to bed, repositioned with pillows, barrier cream applied to elbows and elevated, new gown and linens provided. No further needs, updated, call light in reach.
--- NOTE | 2020-10-28 14:41 | NUR ---
PATIENT CALLED TO HAVE SOME HELP SITTING UP. WENT IN AND PATIENT WANTED TO GET INTO CHAIR, 1PA FWW. PATIENT STOOD AT BEDSIDE FOR A FEW MINUTES THEN PIVOT TRANSFERED TO CHAIR. PATIENT TOLERATED THE TRANSFER WELL BUT IS VERY AGGITATED ABOUT BEING IN THE HOSPITAL. RN IN ROOM AT THIS TIME AND PATIENT NOW REQUESTS TO GO TO BSC, PATIENT UP TO BSC 1PA PIVOT. BED BATH GIVEN. NEW GOWN AND ATTENDS PROVIDED. LINENS CHANGED. MAKAYLA CARE DONE. PATIENT BACK TO CHAIR, 1PA. PATIENT KEEPS SAYING "ARE YOU JUST HERE TO PLAY DRKimberli" AND STATING "I'M DONE! GET THIS OVER WITH" RN STILL IN ROOM. VITALS AND I&O'S CHARTED. CHAIR ALARM ON. CALL LIGHT IN REACH. FRESH WATER GIVEN. NO FURTHER NEEDS AT THIS TIME.
--- NOTE | 2020-10-28 17:45 | NUR ---
Pt has been up to commode 4 times with no void. Bladder scanned, 25 ml noted in bladder. cna ltc notified, continuing to monitor this
--- NOTE | 2020-10-28 18:10 | NUR ---
Updated Dr Leroy re: urine output, verbal order received for 500ml LR bolus, initiated now. No further needs at this time, will continue to monitor.
--- NOTE | 2020-10-28 18:12 | NUR ---
PATIENT UP TO BSC AND BACK TO BED, 1PA FWW. NO VOID, RN NOTIFIED. DAUGHTER IN ROOM. VITALS AND I&O'S CHARTED. CALL LIGHT IN REACH. NO FURTHER NEEDS AT THIS TIME.
--- NOTE | 2020-10-28 19:20 | NUR ---
REPORT RECEIVED FROM ALEKSANDAR VARGAS. pt RESTING IN CHAIR. DAUGHTER IN ROOM. SPO2 WNL WITH 4L OXYGEN BY NC IN PLACE.
--- NOTE | 2020-10-28 19:56 | NUR ---
CALL LIGHT ANSWERED. pt TANGLED IN IV TUBING, STEEL UNLOADER TUBING, G TUBE. 2PA TO [place], ASSIST pt TO BSC FOR VOID AND BACK INTO BED. SPO2 DROPS TO LOW 80S WITH 4L OXYGEN BY NC, TITRATED TO MAINTAIN SATURATIONS >90%. pt NOW ON 6L OXYGEN WITH NC AND OXYMASK, SPO2 95% WITH CPOX IN PLACE. CALL LIGHT IN REACH. BED ALARM ON. SCDS, HEEL PROTECTORS ON. DAUGHTER AT BEDSIDE.
--- NOTE | 2020-10-28 22:00 | NUR ---
pt AWAKE RESTING IN BED. DENIES TOILETING NEEDS. BLADDER SCAN 670 MLS. pt THEN UP [place] [facility] [place] AND LARGE INCONTINENCE IN ATTENDS. pt BACK IN BED. ASSISTED TO REPOSITION WITH TWO RN ASSIST. COMPLAINS OF "A LOT OF PAIN" DOES NOT RATE PAIN ON SCALE. PRN OFIRMEV ADMINISTERED. IV SITE FLUSHED WNL. pt REFUSING MORPHINE SENIOR APPLICATIONS DEVELOPER AT THIS TIME, BUTTON IN REACH. BOWEL TONES ACTIVE, ABD SOFT, TENDER AT INCISION SITE. G TUBE FLUSHED WNL WITH 50 MLS TAP WATER. LAZARA EMPTIED 18 MLS RED DRAINAGE. pt ON 7L OXYGEN BY NC, SPO2 WNL, LABORED BREATHING WITH ACTIVITY. CALL LIGHT IN REACH. BED ALARM ON.
--- NOTE | 2020-10-28 23:45 | NUR ---
MARIPOSA STATON TO CHANGE pt. INCONTINENT OF LARGE VOID. ATTENDS, GOWN CHANGED. IVF INFUSING WNL. pt REPOSITIONED IN BED. SCDS ON. CALL LIGHT WITHIN REACH. LIGHTS OFF IN ROOM. BED ALARM ON.
--- NOTE | 2020-10-29 01:10 | NUR ---
IN TO ROOM WITH CASE SUPERVISOR. PT O2 PLACED BACK IN NARES. PT STATES, WITH EYES CLOSED, I WON'T BE A "BITCH ANYMORE", ASKED PT WHEN SHE WAS, SHE SAID YESTERDAY, "I WAS THE BIGGEST BITCH TO MYSELF".
--- NOTE | 2020-10-29 01:10 | NUR ---
CPOX ALARMING, ALEKSANDAR XIONG AND MARCELL STATON IN ROOM. OXYGEN OUT OF NARES, OXYGEN BACK ON. SPO2 WNL. CPOX IN PLACE.
--- NOTE | 2020-10-29 01:46 | NUR ---
pt UP TO BSC FOR VOID WITH MARCELL STATON ASSIST. THIS RN IN ROOM. ASSESSMENT COMPLETE. pt STATES "A LITTLE PAIN IN MY LOWER ABDOMEN". DENIES NEED FOR PRN PAIN MEDICATION. OFFERED DYNAMIC ETCHING PROCESSOR PUMP BUTTON, pt STATES "GOD NO, I'VE USED TOO MUCH OF THAT ALREADY". BOWEL TONES HYPOACTIVE, ABD SOFT. DRAINAGE ON GAUZE UNCHANGED FROM START OF SHIFT. G TUBE WITH BROWN/GREEN DRAINGE. CALL LIGHT IN REACH.
--- NOTE | 2020-10-29 01:46 | NUR ---
PATIENT GOT UP TO USE THE COMMODE. PATIENT VOIDED APPROXIMATELY 50CC. PATIENT IS BACK IN BED. PRIMARY RN KESHA WAS WITH PATIENT.
--- NOTE | 2020-10-29 02:16 | NUR ---
CALL LIGHT ANSWERED. ASSISTED TO SIT UP IN BED TO DRINK WATER. NO ADDITIONAL NEEDS. CALL LIGHT IN REACH.
--- NOTE | 2020-10-29 04:41 | NUR ---
CALL LIGHT ANSWERED. pt STATES "MY OXYGEN IS DROPPING FAST HURRY". 7L NC ON, SPO2 READING 78%, NOT GOOD WAVE FORM ON CPOX, pt LABORED BREATHING, ANXIOUS. OXYMASK WITH 3L OXYGEN APPLIED OVER NC. SPO2 INCREASES TO 95%. pt INCONTINENT OF URINE. ATTENDS, CHUX, GOWN CHANGED. URINE NOTED ON GAUZE DRESSING ON MIDLINE, LAZARA SITE. DRESSINGS CHANGED. LAZARA WITH SCANT SS DRAINAGE. G TUBE EMPTIED 200 MLS GREENISH DRAINAGE. pt REPOSITIONED TO LEFT SIDE WITH PILLOW UNDER HIP. SCDS ON. VSS. LIGHTS OFF IN ROOM. CALL LIGHT IN REACH.
--- NOTE | 2020-10-29 05:51 | NUR ---
G TUBE FLUSHED THIS SHIFT WNL. 350 MLS LIGHT GREEN SUBSTANCE DRAINED FROM G TUBE. LAZARA WITH 5 MLS RED DRAINAGE. MIDLINE INCISION CDI WITH AMOS, RAISED BRUISED AREA AT BOTTOM OF INCISION. GAUZE CHANGED AFTER INCONTINENCE ON DRESSING. SMALL AMT RED DRAINAGE AROUND LAZARA INSERTION SITE, GAUZE ALSO CHANGED THIS SHIFT. LUNG SOUNDS CLEAR, pt REQUIRING 7L OXYGEN BY HIGH FLOW NC FOR MOST OF SHIFT, ADDITIONAL OXYGEN WITH EXERTION. pt INCONTINENT OF URINE, UP TO BSC 1PA FOR SMALL VOIDS, URGENCY NOTED. BOWEL TONES ACTIVE, NO FLATUS PRESENT, ABD SOFT, TENDER WITH PALPATION. CLEAR LIQUID DIET. MINIMAL PO INTAKE THIS SHIFT. pt IRRITABLE WITH BEING IN HOSPITAL. CPOX ON.
--- NOTE | 2020-10-29 06:19 | NUR ---
CALL LIGHT ANSWERED. 1PA TO BSC FOR 100 ML VOID AND BACK TO BED. pt SOB WITH AMBULATION TO COMMODE. 10L OXYGEN IN TOTAL IN PLACE WITH 7L OXYGEN BY NC, 3L OXYGEN BY OXYMASK. SPO2 95%. SCDS ON. REPOSITIONED IN BED WITH TWO RN ASSIST. pt REQUESTING TO LIE ON BACK AT THIS TIME. CALL LIGHT IN REACH. IVF INFUSING WNL.
--- NOTE | 2020-10-29 07:25 | NUR ---
BEDSIDE REPORT FROM KESHA HUERTAS, PT CALLED TO REQUEST ASSISTANCE TO GET UP TO BEDSIDE COMMODE.
--- NOTE | 2020-10-29 08:11 | NUR ---
PATIENT IS IRRITABLE THIS MORNING, UPSET ABOUT SCD'S. PATIENT GIVEN 5 MINUTE BREAK FROM SCD'S. PATIENT REFUSED NEB TREATMENT, DID ALLOW RT TO CHECK HER O2/RESPIRATORY STATUS.
--- NOTE | 2020-10-29 09:10 | NUR ---
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 MD SAID HE WOULD ORDER NYSTATIN.
--- NOTE | 2020-10-29 09:30 | NUR ---
Pt sleeping, not awakened.
--- NOTE | 2020-10-29 09:40 | NUR ---
Patient vitals, I&Os are complete. Patient refused water and breakfast. The patient has no requests and the call light is in reach. She is wondering when the doctor will discharge her.
--- NOTE | 2020-10-29 10:02 | NUR ---
PT REPORTS FEEL LIKE SHE IS NOT GETTING BETTER, REPORTS HAVING PAIN. MORPHINE BUTTON PUSHED. PT REPORTS FEELING NAUSEA NO EMESIS, ZOFRAN GIVEN PRN, TYLENOL IV GIVEN PRN, PO MED HELD FOR NOW
--- NOTE | 2020-10-29 10:31 | NUR ---
PT AT THIS TIME TITRATED DOWN TO 6L N.C., PT HAS OXYMASK ON FOR COMFORT WITH NO OXYGEN FLOWING.
--- NOTE | 2020-10-29 13:21 | EKG ---
[facility] [address] [place] [address] Signed Normal sinus rhythm Possible Inferior infarct (cited on or before 16-OCT-2019) Anterolateral infarct (cited on or before 27-OCT-2015) Abnormal ECG When compared with ECG of 16-OCT-2020 11:02, No significant change was found Confirmed by MAIRA NYE MD ([id number]) on 10/29/2020 1:20:57 PM Electronically Signed By: MAIRA NYE MD 10/29/20 1321 PATIENT NAME: GLORIA ADHIKARI Electrocardiogram DATE OF : 48 PHYSICIAN: MAIRA NYE MD REPORT #: [id number] REPORT IS CONFIDENTIAL AND NOT TO BE RELEASED WITHOUT AUTHORIZATION
--- NOTE | 2020-10-29 13:55 | NUR ---
Patient vitals, I&Os are complete. Tyrese refused lunch and says she's in too much pain. Daughter is in the room. The call light is in reach.
--- NOTE | 2020-10-29 14:23 | NUR ---
PT RESTING QUIETLY IN BED EYES CLOSED RESP REGULAR. FAMILY AT BEDSIDE. NO DISTRESS, PT IS RESTING RELAXED POSITION, NO GRIMACE NOTED, NO MOANING.
--- NOTE | 2020-10-29 16:33 | NUR ---
PT RESTING IN BED REPORTS PAIN BETTER MANAGED AT THIS TIME, FAMILY AT BEDSIDE.
--- NOTE | 2020-10-29 18:17 | NUR ---
Vitals, I&Os are done. Call light is in reach. Kamala care, SBA. Patient would like a smaller gown to wear.
--- NOTE | 2020-10-29 18:25 | NUR ---
PT REPORTS SHE IS FEELING MUCH BETTER THIS AFTERNOON, SHE IS USING SKIP PITMAN MORE, WE HAVE BEEN ABLE TO TITRATE OXYGEN TO 7-8L MOST OF SHIFT. SHE IS UP TO BSC MORE EASILY THIS AFTERNOON. THIS AM SHE REFUSED THERAPIES, SHE HAS REFUSED ANY ORAL NUTRITION OVER SHIFT.
--- NOTE | 2020-10-29 19:13 | NUR ---
G-TUBE AT GRAVITY DRAIN TO COATES BAG, 150ML GREEN OVER DAY SHIFT.
--- NOTE | 2020-10-29 19:50 | NUR ---
PATIENT UP TO BEDSIDE COMMODE 1PA. PATIENT WANTS SOME TIME OM THE COMMODE AND WILL CALL WHEN FINISHED. CALL LIGHT IS IN REACH.
--- NOTE | 2020-10-29 20:00 | NUR ---
IN TO ASSIST PT BACK TO THE BSC, PT RECENTLY PUT SELF BACK TO BED BUT STATES SHE WAS NOT FINISHED GOING, PT ATTEMTED A BM AGAIN AT THIS TIME, NO BM, BACK TO BED AND TUCKED IN, ANTONIO FURTHER NEEDS AT THIS TIME, SON IN ROOM TO VISIT
--- NOTE | 2020-10-29 21:07 | NUR ---
CALL LIGHT ANSWERED. 1PA TO BSC FOR 100 ML VOID AND BACK TO BED. SPO2 94% WITH 3L OXYGEN BY NC ON AT REST. WARM BLANKET PROVIDED. SON OUT OF ROOM AT THIS TIME. CPOX ON. CALL LIGHT IN REACH.
--- NOTE | 2020-10-29 21:50 | NUR ---
PATIENT INFORMED THIS NURSE THAT HER PAIN HAS REMAINED CONTROLLED WITH USE OF THE CITY PLANNER PUMP. PATIENT'S G-TUBE FLUSHED WITH 30MLS OF WATER AND LAZARA DRAIN EMPTIED 60MLS RED DRAINAGE. PATIENT TOOK HER EVENING MEDS WITHOUT DIFFICULTY, BUT THEY WERE EACH CUT IN HALF. PATIENT HAS NO OTHER CARE REQUESTS AT THIS TIME. LIGHTS TURNED DOWN AND CALL LIGHT IS IN REACH.
--- NOTE | 2020-10-30 00:05 | NUR ---
PATIENT RESTING QUIETLY ON HER LEFT SIDE WITH HEAD OF BED ELEVATED AT ABOUT 20 DEGREES. PATIENT'S EYES ARE CLOSED AND 2L/NC REMAINS IN PLACE. PATIENT'S RESPIRATIONS ARE REGULAR AND EVEN. CALL LIGHT ISIN MICHELLE.
--- NOTE | 2020-10-30 01:50 | NUR ---
PATIENT BACK TO BED AFTER 1PA UP TO THE BEDSIDE COMMODE AND BACK TO BED. PATIENT PULLED UP IN BED AND REPOSITIONED BY ALEKSANDAR REBOLLEDO AND THIS RN. PATIENT NEEDED 6L/OXYMASK TO BRING O2 SATS BACK UP INTO THE 90'S FROM 78% EXERTIONAL HYPOXIA. PATIENT BACK ON 3L/NC, CONTINUOUS PULSE OX ON AT 94% ON 3L/NC. SCD'S IN PLACED. LAZARA DRAIN DRESSING CHANGED AND LAZARA DRAIN EMPTIED. PATIENT GIVEN WARM BLANKETS AND CALL LIGHT IS IN REACH.
--- NOTE | 2020-10-30 03:00 | NUR ---
IN TO ASSIST PT TO THE BSC, PT HAD VERY SMALL VOID, NEW SPO2 SENSOR REPLACED ON PTs FINGER, PT TUCKED BACK INTO BED, NO FURTHER NEEDS AT THIS TIME
--- NOTE | 2020-10-30 04:25 | NUR ---
CALL LIGHT ANSWERED. SBA TO BSC FOR VOID, pt WITH NO VOID, ATTENDS DRY. BACK IN BED. PRIMARY RN KWASI NOTIFIED AND IN ROOM. BLADDER SCAN 869. pt USING MORPHINE DIE TRY OUT WORKER STAMPING AT THIS TIME. PHONE CALL TO MD BY PRIMARY RN.
--- NOTE | 2020-10-30 04:30 | NUR ---
CALLED FOR PATIENT'S DECREASING URINARY OUTPUT, BUT URGE TO VOID, AND BLADDER SCAN OF OVER 800MLS. ORDERED A COATES BE PLACED AND ORDERED CBC AND BMP LAB DRAWS FOR THIS AM. NO OTHER ORDERS NOTED AT THIS TIME.
--- NOTE | 2020-10-30 04:55 | NUR ---
18FRENCH COATES PLACED AND DRAINED 950MLS CLEAR YELLOW URINE. PATIENT FEELING MUCH BETTER AT THIS TIME. STA LOCK PLACED ON COATES, AM ASSESSMENT COMPLETE, NEW DRAIN GAUZE PLACED AROUND LAZARA DRAIN. VS ARE STABLE AND I+O COMPLETE. PATIENT RESTING QUIETLY WITH CALL LIGHT IN REACH.
--- NOTE | 2020-10-30 06:45 | NUR ---
PATIENT GIVEN 5MG IV REGLAN. PATIENT RESTING ON LEFT SIDE AND O2 SATS AT 82%, PATIENT INCREASED TO 5L/NC FROM 3L/NC AND O2 SATS 91% AT THIS TIME. CALL LIGHT IS IN REACH.
--- NOTE | 2020-10-30 08:00 | NUR ---
REPORT RECEIVED FROM NIGHT RN AND PT. CARE RESUMED. PT. IS ALERT AND ORIENTED. SHE REPORTS MILD, TOLERABLE PAIN AND DEMONSTRATES USE OF INDUSTRIAL ROOFER HELPER. LUNGS DIM. IN THE BASES. SHE IS ON 5L HIGH FLOW NC AND O2 SAT IS 92%. MIDLINE DRESSING HAS SMALL AMOUNT OF RED SHADOWING AND HEMATOMA PRESENT UNDER UMBILICUS. LAZARA DRAIN EMPTIED OF 60 ML OF SERISANGUINOUS FLUID AND STRIPPED. G-TUBE PATENT AND DRAINING LIGHT GREEN DRAINAGE. IV SITE WNL AND FLUSHES WELL. DISCUSSED POC AND PT. ASSISTED BY 1 PERSON TO CHAIR. SCDS IN PLACE. PT. LEFT RESTING WITH CALL LIGHT IN REACH
--- NOTE | 2020-10-30 09:45 | NUR ---
Pt sleeping. Spoke with son when he arrived to visit with mom. We discussed plan if pt is physically unable to go home on dc. Explained rehab in SNFS. He feels if the explains she needs to go for rehab, she may agree. Pt lives alone, across the [place] from son. He and sister have cont. to attempt to have pt agree to POA and placement. So far, pt has not been in agreement. I again explained I cannot make pt do anything she does not want to do. Son is concerned pt will , alone, at home.
--- NOTE | 2020-10-30 12:11 | NUR ---
ROUNDING ON PT. SHE IS RESTING IN BED AND DENIES PAIN EXCEPT AT THIS TIME. ASSISTED WITH REPOSITIONING. MIDLINE DRESSING IS DRY AND INTACT AND SHADOWING REMAINS UNCHANGED . LAZARA DRAIN EMPTIED OF 50ML OF SERISANGUINOUS FLUID. R.T. IN THE ROOM FOR BREATHING TX.
--- NOTE | 2020-10-30 15:15 | NUR ---
PT VERY ANXIOUS, ASKED IF THIS RN WOULD STAY WITH HER, THIS RN AGREED TO STAY FOR NOW. PT THEN SAID SHE IS THINKING ABOUT HER . SHE THEN WAS QUIET FOR A FEW MINUTES AND THEN SAID "I WOULD LOVE A CIGARETTE RIGHT NOW", THIS RN AND PATIENT THEN TALKED ABOUT QUITTING AND HOW HARD IT CAN BE. PT THEN RESTED IN BED EYES CLOSED FOR A FEW MINUTES THEN ASKED THIS RN TO HELP HER GET OUT OF THIS HOSPITAL. THIS RN SAID "I CAN'T HELP YOU LEAVE THE HOSPITAL RIGHT NOW" PT SAID "WHY NOT" THIS RN SAID BECAUSE YOU ARE MEDICALLY STABLE YET. " SHE SAID "I DONT CARE, I DONT CARE IF I " THEN PATIENT VOICED SHE DIDNT BELIEVE ME, SHE SAID "YOUR LIEING TO ME" THIS RN THEN MADE SURE ANOTHER STAFF WAS ABLE TO WATCH PT CLOSE AND LEFT THE ROOM SHE SEEMED MORE ANXIOUS THE LONGER I REMAINED. WILL NOTIFY DOCTORS.
--- NOTE | 2020-10-30 15:40 | NUR ---
PT RESTING IN BED REPORTS NO PAIN. SHE ASKED THIS RN TO STAY WITH HER, THIS RN SITTING AT BEDSIDE. THIS RN TURNED TO COMPUTER TO SEE IF PT HAD A PRN NEB AVAILABLE. PT THEN SAT UP TO SIDE OF BED BY HERSELF, HER OXYGEN SATURATION DROPPED TO 73% INCREASED OXYGEN FLOW TO 10L SATURATION INCREASED TO 88%, PT SAID SHE WANTED THIS RN TO CALL HER DAUGHTER RIGHT NOW. RN PICKED UP PHONE AND STARTED DIALING NUMBER. PT THEN SAID "THEN YOU CAN CALL 911" THIS RN SAID "I WILL NOT DIAL 911, BUT I CAN HAND YOU THE PHONE" THIS RN THEN LEFT PATIENT ROOM TO CALL AND . DEFERS CARE TO , NO NEW ORDERS. THIS RN THEN CALLED PACU TO GIVE MESSAGE TO , TALKED TO ARAMIS RN TO RELAY THAT HIS PT VERBALIZED THAT SHE WANTS TO DISCHARGE HOME NOW. SHE SAID SHE DOSEN'T CARE IF SHE DIES.....'S OFFICE CALLED MED/SURG TO REPORT THAT THEIR OFFICE WAS CALLED BY OUR PATIENT.
--- NOTE | 2020-10-30 15:51 | NUR ---
RECEIVED A PHONE CALL FROM THE [facility] OFFICE THAT PATIENT HAD CALLED THEM BECAUSE SHE WANTS TO BE DISCHARGED. I LET HER KNOW THAT THE DOCTOR HAD BEEN NOTIFIED. SHE WAS PLEASED WITH THAT ANSWER.
--- NOTE | 2020-10-30 16:27 | NUR ---
PT. USED CALL LIGHT FOR HELP WITH PHONE. SHE APPEARS CONFUSED AND IS ANSWERING CALL LIGHT INSTEAD OF CELL PHONE. REORIENTED. PT. IS HEARD TELLING HER DAUGHTER SHE WANTS TO LEAVE AND GO HOME. DAUGHTER REFUSES AND PT. DISTRAUGHT. WHEN ASKED WHY SHE WANTS TO LEAVE STATES SHE WOKE UP AND NO ONE WAS THERE. SHE STATES "DAVID YOU ARE THE ONLY ONE WHO CAN SAVE ME". PT. TOLD THAT A NURSE CANNOT BE PRESENT IN THE ROOM ALL OF THE TIME, BUT SHE CAN USE THE CALL LIGHT IF SHE NEEDS HELP. PT. STATES "EVERYONE HERE WANTS ME TO ". PT. REASSURED THAT THE STAFF ARE HERE TO HELP HER HEAL. PT. DENIES PAIN AT THIS TIME. G-TUBE AND AMINATA PT. PT. LEFT RESTING ON THE PHONE WITH CALL LIGHT IN REACH.
--- NOTE | 2020-10-30 16:59 | NUR ---
PT RESTING IN BED ALERT, FLAT AFFECT. THIS RN STOPPED BY AND ASKED "HELLO HOW ARE YOU DOING?" SHE SAID "JUST SPLENDID, I HAVE NOTHING TO SAY TO YOU". THIS RN SAID "OK"
--- NOTE | 2020-10-30 19:27 | NUR ---
Pt desatted to 69, new probe in place, sats 93% oxymask, O2 up from 3L to 10L, irritable mood, NGT to gravity
--- NOTE | 2020-10-30 20:07 | NUR ---
REGLAN ORDER CHANGED PER VERBAL ORDER FROM DR VERDUZCO
--- NOTE | 2020-10-30 20:31 | NUR ---
NEW IV PLACED BY QUINTON HUERTAS. PATIENT TOLERATED ACTIVITY WELL. PATIENT REPOSITIONED IN BED. PATIENT DENIES ANY NEEDS. ASHUTOSH IS IN THE ROOM. CALL LIGHT IN REACH.
--- NOTE | 2020-10-30 21:30 | NUR ---
Back on 5LNC, CPOX at bedside sats 90%. Lungs fine crackles at bases, no sob. receiveing neb tx now. anxious and irritable at begining of shift, more pleasant at this time, repositioned in bed. Labd LAZARA emptied, dressing with old drainage. umbilical GT patent, unclamped at this time to gravity. abd soft, tender. f/c patent draining yellow urine QS, tolerating liquids well. no emesis, new IV site restarted earlier by supervisor research shop RFA, IVf infusing, LIGHTING FIXTURES DECORATOR in place, pt uses when needed with good pain relief. bruising arms and hands coop with assessment
--- NOTE | 2020-10-30 22:57 | NUR ---
ON 5L HIGH FLOW AFTER NEBS, SATS 93% WILL WEAN DOWN. CALM, RESTING, NO DITRESS, EYES CLOSED, CALL LIGHT AND FLUIDS AT BEDSIDE
--- NOTE | 2020-10-31 01:29 | NUR ---
PT CALLED, UP TO BSC, SEEMED UNAWARE THAT SHE HAD A F/C, PULLINGON IV LINES, IRRITABLE, ANGRY, REASSURED, BACK TO BED, DESATTED TO 76% ON 3lhIGH FLOW o@, WHEN BACK TO BED, BACK TO 5l HIGH FLOW, SATS 88-93% ON RETURN TO BED ON 5l, SOB WITH EXERTION. HOB ELEVATED TO COMOFRT. IV SITE INTACT, F/C INTACT, LAZARA DRAINED SHE WAS ALSO TOUCHING THE TUBING, REORIENTED, CALMER, USING MS DECK LID FITTER, HASNOT USED SINCE EARLIER ON SHIFT
--- NOTE | 2020-10-31 02:08 | NUR ---
resting, no distress, moist non productive at this time cough present. CPOX at bedside, sats 96%, O2 at 5Lhigh flow at this time, weaned down to 4LNC. sats 90-92% on 4L
--- NOTE | 2020-10-31 05:19 | NUR ---
Pt awakes easily, on 5L highflow O2 NC, cpox 95%, tolerated getting up to standing scale well, sats dropped to 90%, back to bed. L LAZAAR patent draining ss drainage. midline abd incision covered with gauze from LAZARA genoveva in place, GT patent was claamped X2 hrs earlier on shift after eating, no fluid aspirated when clamped. f/c patent, edema of l foot and r upper arm . was very irritable earlier on shift. calmer now, confused earlier too, easily redirectable. using MS Morphine for pain. not used it since earlier on shift after new iv placement. confusion was noted several hours after she had used the morphine. tolerating liquids well, no emesis
--- NOTE | 2020-10-31 06:48 | NUR ---
uP TO BSC, NO BM, o2 BUMPED UP TO 10l WHEN MOVING. BACK TO EDGE OF BED. A FEW MINUTES LATER. BACK TO bsc, 1pa. NO VOID, STILL SITTING IN BSC. o@ HIGH FLOW AT 10l, SATS 91-95%. MOIST PRODUCTIVE COUGH PRESENT, WAS VERY IRRITABLE WHEN REMINDED THAT SHE HAS A F/C. ivf INFUSING. NOT PASSING GAS
--- NOTE | 2020-10-31 08:00 | NUR ---
REPORT RECEIVED FROM NIGHT RN AND PT. CARE RESUMED. PT. IS DROWSY BUT ORIENTED. SHE DENIES PAIN AT THIS TIME. G-TUBE IS PATENT AND DRAINING LIGHT GREEN FLUID. LAZARA PATENT AND STRIPPED. MIDLINE DRESSING REMAINS UNCHANGED FROM YESTERDAY. PT. REQUESTED BEDPAN AND HAD A SMALL LOOSE BM. BOWEL TONES ACTIVE ON RUQ AND RLQ, HYPOACTIVE LUQ AND LLQ. WHEN CLEANING PATIENT A LARGE DARK BRUISE WAS FOUND ON RIGHT INNER LABIA. PT. HAS NOT NOTICED THIS BEFORE. MAY BE RELATED TO COATES INSERTION. WILL CONTINUE TO MONITOR. PRESSURE ULCER ON COCCYX IS DRY AND ALLEVYN PLACED ON IT WITH PILLOW UNDER HIP. ON 5L NC AND O2 SAT IS 95%. PT DEMONSTRATED USE OF I.S. LEFT RESTING WITH CALL LIGHT IN REACH.
--- NOTE | 2020-10-31 08:15 | NUR ---
G-TUBE REMOVED FROM CATHETER BAG WITH STOPPER WHILE EATING.
--- NOTE | 2020-10-31 09:30 | NUR ---
SPOKE WITH PATIENT IN ROOM. PATIENT SITTING UPRIGHT IN BED EATING PUDDING. PATIENT STATES SHE HAD A BM THIS MORNING. SHE STATES "I INTEND TO GO HOME TODAY". SHE IS AWARE THE DR WILL SEE HER AT SOME POINT. SHE CONTINUES TO BE ADAMANT SHE IS GOING HOME AND SHE FEELS SHE HAS ALL SHE NEEDS AT HOME. SHE STATES SHE IS GOING TO USE HER WALKER AND SHE WILL GET AROUND HOME FINE. SHE STATES HER SON LIVES CLOSE AND SHE CAN CALL HIM IF SHE NEEDS HELP. SHE DOES NOT WANT TO DISCUSS ANY OTHER OPTION. SHE DOES NOT KNOW IF SHE WANTS HOME HEALTH IN FOR THERAPY. SHE STATES "I WILL SEE AFTER I TALK WITH THE DR". DISCUSSED AND ASSURRED HER THAT THIS IS HER PLAN. WE ARE HERE TO SUPPORT AND SUGGEST ONLY. SHE STATES "WELL YOU AREN'T GONNA CHANGE MY MIND ANYWAY". SHE DENIES QUESTIONS OR NEEDS.
--- NOTE | 2020-10-31 10:54 | NUR ---
this bottle hop gave pt a bedbath. pt now has a blanket from the warmer. the call light is within reach. no further needs at this time.
--- NOTE | 2020-10-31 15:30 | NUR ---
pt refused any treatment or therapy , pt felt like her breathing was fine
--- NOTE | 2020-10-31 16:17 | NUR ---
Diet has advanced to full liquid. She seems to be doing well. Hopefully diet will advance to more solid food within 24 hours.
--- NOTE | 2020-10-31 17:25 | NUR ---
COATES REMOVED WITH CATH INACT. PT. TOLERATED WELL. GTUBE STOPPER PLACED AND CATHETER BAG FOR DRAINAGE REMOVED. ATTENDS IN PLACE. PT. AMBULATED FROM BED TO CHAIR WITH SBA. DINNER ORDERED AND PT. WAITING. LEFT RESTING WITH CALL LIGHT IN REACH.
--- NOTE | 2020-10-31 18:44 | NUR ---
PT. USED CALL LIGHT FOR ASSISTANCE GOING TO BEDSIDE COMMODE. PT. HAD A LARGE LOOSE INCONTINENT BM ON THE FLOOR. PT. CLEANED AND GIVEN NEW GOWN AND SOCKS. WHILE AMBULATING PT PULLED IV AND IT WAS BLEEDING. GAUZE AND COBAND APPLIED. PT. ASSISTED BACK TO THE CHAIR
--- NOTE | 2020-10-31 20:05 | NUR ---
in to assist with vitals, trash emptied
--- NOTE | 2020-10-31 20:08 | NUR ---
oxymask 5L, cpox at bedside, 98%, weaned down to 3L, after 20 minutes sats 94%. alert and oriented, agreed to have iv restarted, had refused earlier. vi restarted by supervisor production managing. coop with assessment. Lungs dim at bases fine crackles, moist productive cough w thick white phlegm. bruising over amrs and l hip area and above pubic area hematoma from surgery, midline abd incision with genoveva in place pink, well approx dry. gt above umbilical area inplace. plugged. bruising r hip. edema to LE,
--- NOTE | 2020-10-31 20:45 | NUR ---
INCIDENT ENGINEER ROUNDING NOTE. PT WITH VERY LARGE AMOUNT OF LIQUID STOOL PRESENT, BROWN IN COLOR. WASHCLOTH FOLDER ASSISTS PRIMARY RN IN CHANGING PT ATTENDS AND BED LINENS. PT TOLERATED WELL. REPOSITIONED AND PROPPED WITH PILLOWS. PT DENIES FURTHER NEEDS AT THIS TIME. CALL LIGHT IN REACH.
--- NOTE | 2020-10-31 21:25 | NUR ---
PT UTLIZES CALL LIGHT. DISABILITY COORDINATOR AND TEACHING MANAGER TO ROOM TO CHANGE PT ATTENDS AND CHUX. XL LIQUID VANESSA BM PRESENT. PT TOLERATED CHANGE WELL. DENIES FURTHER NEEDS AT THIS TIME. CALL LGHT IN REACH.
--- NOTE | 2020-10-31 21:44 | NUR ---
2035 Patient refused treatments. She repeated this wish after re-offer. RN is present.
--- NOTE | 2020-10-31 23:02 | NUR ---
O2 IN PLACE OXYMASK, RESTING, EYES CLOSED, NO DISTRESS, CALL LIGHT AND FLUIDS AT BEDSIDE
--- NOTE | 2020-11-01 01:47 | NUR ---
resating, O2 in place, eyes closed, no distress cpox at bedside, sats 93% on 3L Oxymask, call light and fluids at bedside.
--- NOTE | 2020-11-01 05:27 | NUR ---
ON O2 3L OXYMASK AT THIS TIME, CPOX AT BEDSIDE, SATS 89-94. WAS WEANED DOWN FROM 5LNC DOWN TO 3, BEACK TO 5 A COUPLE TIMES WHEN UP TO BSC SHE DESATS TO 85%, SOB WITH EXERTION. LUNGS DIM AT BASES AND FINE CRACKLES BILAT HAS BEEN INCONTINENT OF LIQUID BROWN COLORED BOWEL AND URINE, MULTIPLE TIMES, UP TO BSC HAVING LIQUID BM,. HAS DENIED NEED FOR PAIN MED. MIDLINE ABD INCISION WITH AMOS, SLIGHT PROTRUSION OF SURGICAL INCISION AT BASE, NO DRAINAGE, HEMATOMA OF AREA BELOW INCISION TO PUBIC AREA/R LABIA NAD BUTTOCKS NO CHAGNES. BRUISING OVER ARMS AND BILAT HIP AREAS NO CHANGES, OLD LAZARA SITE WITH SCANT AMOUNT OF SS DRAINGE NOTED. WEAK LE. IVF INFUSION W/O PROBLEMS. TOLERATING FLUIDS WELL, NO C/O EMESIS, ANXIOUS AND IRRITABLE AT BEGINING OF SHIFT, WANTING TO GO HOME. TO REASSESS
--- NOTE | 2020-11-01 06:00 | NUR ---
VSS, DAILY WEIGHT AND I&Os IN, WITH ASSISTANCE FROM SECOND BATTERY TESTER FIELD, PT UP TO THE BSC AND THEN BACK TO BED, ROOM TIDIED AND TRASH EMPTIED, NO FURTHER NEEDS AT THIS TIME
--- NOTE | 2020-11-01 06:04 | NUR ---
PATIENT IS AND OS AND VITALS CHARTED. FRESH ICE WATER PROVIDED, ROOM TIDIED, PATIENT WEIGHT COMPLETED, TRASH EMPTIED.
--- NOTE | 2020-11-01 06:43 | NUR ---
IN TO ASSIST PT UP TO THE BSC, BM NO VOID, PT BACK TO BED, STAYED WITH PT UNTIL O2 STAT RECOVERED FROM ACTIVITY, NO FURTHER NEEDS AT THIS TIME
--- NOTE | 2020-11-01 09:30 | NUR ---
REPORT RECEIVED FROM NIGHT RN AND PT. CARE RESUMED. PT. IS ALERT AND ORIENTED. SHE HAS HAD SEVERAL LOOSE BM THIS MORNING AND BECAME TEARFUL STATING "I CAN'T TAKE THIS". PT. REASSURED AND WILL DISCUSS WITH MD. IV SITE WNL AND FLUSHES WELL. ON 3L OXYMASK AND SWITCHED TO NC WHILE EATING. LUNGS COARSE IN THE BASES AND PT. HAS A CONGESTED COUGH THAT IS NON PRODUCTIVE. DISCUSSED POC, SAFETY AND MEDS. LEFT RESTING WITH BRINELL TESTER IN THE ROOM.
--- NOTE | 2020-11-01 10:01 | NUR ---
MD NOTIFIED OF LARGE AMOUNT OF LOOSE STOOLS. VERBAL ORDER GIVEN FOR REDUCING REGLAN TO BID.
--- NOTE | 2020-11-01 11:52 | NUR ---
PT WITH INCONTINENCE OF LARGE LOOSE MUCOUSY STOOL. DR VERDUZCO NOTIFIED. TELEPHONE ORDER RECEIVED TO START FLAGYL 250MG TID, STOP REGLAN, SEND CDIFF STOOL. READ BACK FOR VERIFICATION.
--- NOTE | 2020-11-01 13:29 | NUR ---
PT. DENIES PAIN AT THIS TIME AFTER PERCOCET AT 1230. BOWEL TONES ACTIVE. PT. DID NOT HAVE LUNCH AND STATES SHE IS NOT HUNGRY. DENIES NAUSEA ENCOURAGED P.O. LIQUIDS. CONTACT PRECAUTIONS IN PLACE. SHE IS ON 3L NC AND O2 SAT IS 91%. +1 EDEMA STILL PRESENT IN LEFT FOOT. IV SALINE LOCKED AND FLUSHES WELL. WILL CONTINUE TO MONITOR.
--- NOTE | 2020-11-01 15:27 | NUR ---
PT. USED CALL LIGHT APPROPRIATELY FOR ASSISTANCE TO THE BEDSIDE COMMODE. PT. AMBULATED WITH FWW AND SBA AND VOIDED 150ML. PT. ASSISTED WITH REPOSITIONING. SHE DENIES PAIN AND NAUSEA AT THIS TIME. LEFT RESTING WITH CALL LIGHT IN RECH.
--- NOTE | 2020-11-01 16:47 | NUR ---
ROUNDING ON PT. SHE IS SLEEPING IN BED AT THIS TIME. RESPIRATIONS ARE EVEN AND UNLABORED.
--- NOTE | 2020-11-01 21:39 | NUR ---
-Irritable mood, easily redirectable, follows instructions. on 6LNC, CPOX at bedside reads . probe rechecked, O2 changed to Oxymask. sats 99%, weaned down to 5L and then again to 3L Oxymask sats 90-93%. Up to br, voided, back to bed O2 increaed to 5L at that time, 90% on return, pulse elevated to 119 on return, no resp increaed noted. SBA/FWW. coop with assessment. bruising over arms,hands hips bilat and hematoma low abd and above pubic to R labia and back of R buttocks. tender. midline incision open to air with genoveva, bruised area around, slight protrusion at base. dry, no drainage. priti, having multiple loose stools. GT flushed w/o problems, nothing aspirated. tolerating diet and fluids well, no c/o pain or n/v. Helped with repositioning in bed. calmer, closed eyes and went to sleep right away. call light, fluids and her cell phone at hands reach. will wean off O2 again as she wanted to wait a little before decreasing her O2 again. SL RFA intact
--- NOTE | 2020-11-01 23:29 | NUR ---
RESTING, O2 OXYMASK IN PLACE, EYES CLOSED, NO DISTRESS CPOX 92% 3l. CALL LIGHT AT BEDSIDE
--- NOTE | 2020-11-02 00:51 | NUR ---
pt resting, 02 oxymask 3L , no distress cpox 92%, turns and reposition self call light at hands reach. continoues on enteric precautions isolation
--- NOTE | 2020-11-02 02:13 | NUR ---
awakes, easily, no c/o pain or sob. oxymask at 3L CPOX 95%, goes back to sleep right away. call light and fluids at bedside. cont on contact enteric precautions, has not had anymore loose stools this shift
--- NOTE | 2020-11-02 03:13 | NUR ---
pt called wanted someone to check her abd incision . ss drainage noted from upper incision. left upper side of abd more distended. abd applied, pt reassured. priti, O2 3L oxymask, no other changes, gown and attends changed
--- NOTE | 2020-11-02 05:56 | NUR ---
abd incision still leaking moderate amount of ss drainage. soaked 1/2 abd pad. up to br, voided. O2 was at 3L oxymask, increaed to 6L NC when up to br, sats were 95% perior to switching. c/o increaed sob, resp increaed, increaed anxiety, c/o increaed weakness. 1pa,/FWW, walked back to bed, sats 86% on 6L NC. resp 30 at that time, using accessory abd muscles until she calmed down after much reassurance. Resp now 24, O2 4L OXymask, sats 90-92%. Lungs w/o changes. soaked 2 abd pads which were placed prior to getting up to br. abd more firmer, specially on R side now abd ALEXANDER. very tender to touch. slight dehising noted upper abd and increaed sanguineous drainage. 2 abd pads applied. pt was also incontinent of urine at this time. increaed anxiety, reassured, calmed wallace. will notify . unable to do daily weight at this time due to pts increaed anxiety and weakness. laying in bed, hob elevated. rassured and efforts praised.
--- NOTE | 2020-11-02 06:08 | NUR ---
Dr Leroy notified and informed of increased abd ss drainage, increaed sob and weakness of pt, firmness of abd and increaed saturation of abd pads when returning to bed. new orders for CBC, CMP, keep in bed, do not agitate, document drainage color and amount of abd pads, replace abd pads as needed, and any other changes. will come in and assess her later this am. call for any other changes.
--- NOTE | 2020-11-02 06:31 | NUR ---
PT ON 3L OXYMASK, O2 INCREAED TO 6L/NC WHEN UP TO BR THEN BACK TO 3L. CURRENTLY ON 4L OXYMASK CPOX AT 91%. PT INCREASED ANXIETY, RESP RATE AND PULSE AND WEAKNESS WHEN RETURNING TO BED FROM . REASSURED, BACK TO BED. EARLIER THIS THE UPPER 1/4 OF HER ABD INCISION STARTED LEAKING SS DRAINAE. ABD PADS APPLILED. L SIDED TENDER AND INCREASED FLUID NOTED WHEN DOING ASSESSMENT ON L ABD SIDED. ABD SOFT, ALEXANDER. AN HOUR AGO AFTER RETURNING FROM SHE SATURATED 2 FFRESHLY APPLIED ABD PADS. INCREAED DRAINAGE FROM SAME PLACE AND SLIGHT DEHISCED AREA WITH INCREAED SANGUINEOUS TO SS DRAINAGE NOTED WHEN ASSESSING R SIDE OF ABD, ABD MORE FIRM, ALEXANDER, TENDER. PT MIDLINE ABD INCISION WITH AMOS IN PLACE. HEMATOME LOWER ABD, BRUISING TO HIPS, LOWER R LABIA AND BACK. BRUISING TO ARMS FROM OLD IV SITES. DR VERDUZCO NOTIFIED AND NEW ORDERS RECEIVED
--- NOTE | 2020-11-02 07:45 | NUR ---
REPORT RECEIVED FROM NIGHT RN AND PT. CARE RESUMED. PT. REPORTS SHE DID NOT HAVE A GOOD NIGHT. SHE IS ON 4L OXYMASK AND PLACED ON NC FOR BREAKFAST. O2 SAT IS 90%. SHE HAS A CONGESTED, FREQUENT COUGH AND LUNGS ARE COARSE THROUGHOUT. PT. DEMONSTRATED I.S. USE AND ENCOURAGED TO USE. ABDOMEN IS DRESSED WITH ABD PADS TUCKED INTO ATTENDS, SHE DID NOT WANT TAPE. 1 ABD PAD WAS SATURATED WITH SERISANGUINOUS DRAINAGE AT THE MIDLINE INCISION SITE AND DRAINAGE OOZED OUT WITH COUGHING. 2 ABD PADS REPLACED. BOWEL TONES ARE HYPOACTIVE THROUGHOUT. PT. CONTINUES TO HAVE +2 EDEMA IN LEFT FOOT THAT IS UNCHANGED SINCE YESTERDAY. R.T. IS IN THE ROOM FOR A NEB TX. IV SITE WNL AND FLUSHES WELL. PT. APPEARS EXHAUSTED BUT PLEASANT AND COMPLIANT WITH CARE. DISCUSSED POC AND MEDS. LEFT RESTING WITH CALL LIGHT IN REACH.
--- NOTE | 2020-11-02 10:23 | NUR ---
CHARGE NURSE REPORTS THAT SHE ASSISTED PT. TO BEDPAN AND SHE VOIDED. CHARGE ALSO CHANGED 2 ABD PADS COVERING MIDLINE INCISION THAT WERE SATURATED WITH SERISANGUINOUS AND CLEAR DRAINAGE. WILL CONTINUE TO MONITOR.
--- NOTE | 2020-11-02 15:53 | OR ---
[facility] [address] [place], [place] [address] Signed DATE OF OPERATION: 10/25/2020 SURGEON: Smooth Verduzco MD PREOPERATIVE DIAGNOSES: 1. Recurrent high-grade distal small-bowel obstruction. 2. Advanced end-stage chronic obstructive pulmonary disease, chronic hypoxemia. POSTOPERATIVE DIAGNOSES: 1. Recurrent high-grade distal small-bowel obstruction. 2. Advanced end-stage chronic obstructive pulmonary disease, chronic hypoxemia. 3. Extensive intraabdominal adhesions causing bowel obstruction. PROCEDURE: 1. Exploration of abdomen with extensive adhesiolysis and freeing of small bowel obstruction (prolonged, complicated, difficult). 2. Decompressive enterostomy with closure. 3. Decompressive gastrostomy tube (22-Latvian GRANT tube). ANESTHESIA: General endotracheal, Kendell Woo FREELANCE GRAPHIC DESIGNER and preoperative quadratus lumborum bilateral block. INDICATION: This 70-year-old white woman has long-standing chronic hypoxemia. She was admitted by me to the hospital on October 16, 2020, having been discharged to the hospital earlier in the day. She was noted to have worsening abdominal pain and emergency room evaluation showed a small-bowel obstruction. She was admitted to my service on the basis of small bowel obstruction, but had a rapid response team due to an acute exacerbation of respiratory distress for which a rapid response team did allow for resuscitation and she was then transported to the Intensive Care Unit. She was largely managed for acute on chronic respiratory failure with BiPAP dominantly, ultimately weaning to high-flow face mask, oxygen and ultimately to relatively high-flow nasal cannula oxygen. She requires 3 L of nasal cannula oxygen at home on a good day. Her bowel obstruction resolved entirely. She was transferred to the medicine service under the direction of Dr. Arellano 48 hours ago, but then had findings consistent with recurrent small bowel obstruction including abdominal distention, pain and some vomiting. A CT scan was performed today which confirmed high-grade distal small-bowel obstruction and segment of small bowel near the ileum that was completely decompressed. The patient has undergone hysterectomy and cholecystectomy in the past. Electronically Signed By: SMOOTH VERDUZCO MD 11/02/20 1553 PATIENT NAME: GLORIA ADHIKARI OPERATIVE REPORT DATE OF : 48 REPORT #: [id number] PHYSICIAN: SMOOTH VERDUZCO MD PCP: MARY MARTINEZ PA-C REPORT IS CONFIDENTIAL AND NOT TO BE RELEASED WITHOUT AUTHORIZATION [facility] [address] [place] [id number] Signed Mindful of her recurrent bowel obstruction, not only during this hospitalization, but previously as well, I have recommended operation. We are mindful of her high risk of pulmonary complications based on her severe COPD. I have reviewed all this with the patient and her son, Augusto as well as Dr. Nye, who is caring for her as a hospitalist now. All parties understand the serious risks and wished to proceed with operation as it appears this will not likely respond to conservative measures as it has in the past. FINDINGS: Indeed she did have a small bowel obstruction in the distal aspect approximately 10 inches from the terminal ileum. The cause of obstruction was multiple adhesions. There appeared to be torsion on the small bowel chronically, although no transmesenteric herniation, torsion of the small bowel mesentery was noted. Complete freeing of the bowel to relieve the obstruction was accomplished. A decompressive enterostomy was needed to adequately decompress the bowel of thick paste like small bowel contents. Given the fact that any additional stress on her pulmonary system including nasogastric tube would be disadvantageous to her, a decompressive 22-Latvian GRANT gastrostomy tube was also placed. She was able to be extubated at the conclusion of the operation. DESCRIPTION OF PROCEDURE: The patient underwent bilateral quadratus lumborum blocks by the resource management specialist prior to operation. She was taken to the operating room and given a general endotracheal anesthetic. A Benavides catheter and nasogastric tube are already in place. She has been on cefepime antibiotic persistently for several days. The abdomen was clipped and prepared with a chlorhexidine solution and draped sterilely. An incision was made in a limited way inferior to the umbilicus. Dissection was carried through the subcutaneous tissue and the fascia and omental adhesions were immediately noted. Further dissection identified transverse colon as well as small bowel loops not far from the inner table of the abdomen. Filmy dense envelope of adhesions was noted initially. Ultimately, the peritoneal cavity itself was from these adhesions better defining the problem. There were markedly distended and inflamed bowel loops throughout the abdomen with interloop adhesions quite prominent. Some of the bowel loops were completely free, but those in the pelvis were quite matted and distorted. The right colon appeared to be fused to the right abdominal wall more so than usual. The Bookwalter retractor was affixed to the table and meticulous dissection with sharp and blunt electrocautery dissection was undertaken freeing the interloop adhesions. It appeared as consistent with the CT scan that the obstruction was in the right lower abdomen. With meticulous care, the adhesions were laboriously freed and the bowel delivered out of the abdomen. Upper abdomen bowel loops were not particularly adhesed, only in the pelvis and the mid abdomen. In time, the cecum could be identified, I saw no evidence of the appendix. The terminal ileum appeared completely Electronically Signed By: SMOOTH VERDUZCO MD 11/02/20 1553 PATIENT NAME: GLORIA ADHIKARI OPERATIVE REPORT DATE OF : 48 REPORT #: [id number] PHYSICIAN: SMOOTH VERDUZCO MD PCP: MARY MARTINEZ PA-C REPORT IS CONFIDENTIAL AND NOT TO BE RELEASED WITHOUT AUTHORIZATION [facility] [address] [place], [place] [address] Signed decompressed and normal. The ileum extended to about 10 inches into a densely adhesed of small bowel which was variably distended. This mass of bowel was able to be explanted from the pelvis ultimately. The iliac artery and iliac vein were easily identified and unharmed. Adhesions had formed, likely related to her prior hysterectomy. The bladder fold peritoneal adhesions were noted as well. Once the bowel was completely explanted from the abdomen, meticulous dissection was undertaken further ultimately freeing the bowel entirely. Though I tried to avoid such undertaking, the bowel was milked distally as it was markedly distended and much of it was milked distally until the area of lysis of adhesion. Passage of the succus entericus and air was not forthcoming. On that basis, a 2-0 silk pursestring was fashioned into an area of mid ileum and the segment isolated with laparotomy packs. A small enterotomy was made and decompression with a 14-gauge catheter was completely ineffective. Subsequently applied was the inner cannula of pool-tip suction device. This quickly was occluded by succus entericus. On that basis, careful retrograde milking from the ileocecal valve towards the enterotomy was undertaken delivering a thick paste like enteric contents. The decompressed bowel was much healthier now in appearance and the isolating laparotomy packs offloaded without contamination of the peritoneal cavity. A pursestring suture was secured and the serosa was reapproximated with interrupted 3-0 Vicryl. Gloves were changed as were the implicated instruments. Irrigation was undertaken throughout the abdomen and the small bowel appeared much better. Retrograde milking from the mid jejunum proximally into the stomach allowed for some decompression. The bowel was far less inflamed by this point. Copious irrigation of the abdomen with containing saline solution was undertaken. Through left lower quadrant stab incision, a 7 mm flat Duncan drain was placed in the depths of the pelvis. A few areas of deserosalization were secured with interrupted 3-0 silk sutures to be extra cautious and avoid fistulization. The small bowel was returned to its anatomic position and the omentum applied over the enteric contents. It was deemed advisable to place a decompressive gastrostomy given her general intolerance for nasogastric tubes long-term. The omentum was freed superiorly (the incision extended not much above the umbilicus) and normal and healthy stomach was identified. Retrograde milking of small bowel towards the ligament of Treitz delivered only a small amount of enteric contents through the nasogastric tube. A pursestring suture at just proximal to the incisor was undertaken with 2-0 silk suture and the stomach entered using meticulous electrocautery technique. A 22-Latvian GRANT gastrostomy tube was passed through a near midline incision and manipulated into the stomach. The balloon insufflated and the pursestring secured. The serosa of the stomach was secured to the anterior abdominal wall peritoneum with interrupted 3-0 silk sutures. The flange was secured to the skin and later tied with a heavy nylon stitch. The flange was secured to the skin with 2-0 nylon suture. Irrigation was undertaken once again and the midline fascia was then reapproximated with Electronically Signed By: SMOOTH VERDUZCO MD 11/02/20 2474 PATIENT NAME: GLORIA ADHIKARI OPERATIVE REPORT DATE OF : 48 REPORT #: [id number] PHYSICIAN: SMOOTH VERDUZCO MD PCP: MARY MARTINEZ PA-C REPORT IS CONFIDENTIAL AND NOT TO BE RELEASED WITHOUT AUTHORIZATION [address] [place], [place] [address] Signed running bidirectional #1 PDS suture. Subcutaneous tissue was irrigated and the skin closed with a clip device. A silver sponge dressing was applied to the incision. The drain was attached to bulb suction and the decompressive gastrostomy attached to the Benavides catheter system. The patient was extubated in the operating room without problem, transferred to recovery room in good condition having suffered no known complications. The operation was prolonged, complicated, and difficult but safely accomplished I believe. MD [facility]/NGUYEN /[id number] cc: MD Mary Ruiz PA-C Brian Piteo, MD Cynthia Rasch, MD Cynthia Sue Holmes, MD Copies: MAIRA NYE MD, CHLOE K PA-C PITEO, BRIAN DO RASCH, CYNTHIA MD HOLMES, CYNTHIA SUE MD ~ Electronically Signed By: SMOOTH VERDUZCO MD 11/02/20 1553 PATIENT NAME: GLORIA ADHIKARI OPERATIVE REPORT DATE OF : 48 REPORT #: [id number] PHYSICIAN: SMOOTH VERDUZCO MD PCP: MARY MARTINEZ PA-C REPORT IS CONFIDENTIAL AND NOT TO BE RELEASED WITHOUT AUTHORIZATION
--- NOTE | 2020-11-02 19:43 | NUR ---
pt repositioned in bed. O2 3L OXymask cpox at bedside sats 97%. Lungs dim at bases yovanny crackles, cont to have moist productive cough. abd with ALEXANDER bowel tones. GT was not flushed at this time, will flush if she does nto go for surgery later on this shift. midline incision with genoveva, upper 1/4 of incision small dehisced area noted, draining serouns drainage, no odor. 1/2 of pad saturated, clean one placed on after assessment. the above pad was placed in place at 1910 after surgical wipedown. area tender. hematoma at base of incision present, low abd to labia and back r buttocks. clean attends in place. f/c patent. draining clear yellow urine. scds at bedside. IVF infusing RFA, second dose of K rier started. Pt with increased anxiety r/t drainage from incision and possible surgery. explained to her and she calmed down. surgical wipe down completed.
--- NOTE | 2020-11-02 20:46 | NUR ---
message left via phone Dr Camacho, clarification of new K riders order
--- NOTE | 2020-11-02 20:46 | NUR ---
SCHEDULED MEDS PROVIDED. BROTH AND JELLO PROVIDED. WATER PROVIDED. NO OTHER NEEDS. CALL LIGHT IN REACH.
--- NOTE | 2020-11-02 21:21 | NUR ---
CALL LIGHT ANSWERED. PT REPORTS NAUSEA AND HAD SMALL AMOUNT EMESIS. PRN FOR N/V ADMINISTERED PER EMAR. PRIMARY RN NOTIFIED.
--- NOTE | 2020-11-02 21:26 | NUR ---
abd pad replace, one fully saturated with ss drainage. clean abd applied
--- NOTE | 2020-11-02 21:55 | NUR ---
2nd K rider completed, tolerated well, abx IV completed. Magnesium rider started. Community Living Specialist in room trying to restart a second IV line, procedure explained to pt, pt agreed. aware of blood transfusion to be done. stated understandind. in bed O2 3L NC in place, sats 94%, resp 22
--- NOTE | 2020-11-02 23:25 | NUR ---
2229 - HOISTING LABORER WAS ABLE TO START A SECOND LINE 22g lfa. PATENT. 2304 - FIRST UNIT BLOOD STARTED, [id number]. PROCEDURE EXPLAINED. COOP 2309 - ABD ABD PAD CHANGES SATURATED W SEROUS DRAINAGE, NO ODOR. PT COOP. O2 3L OXYMASK. CALMER. nO C/O ADVERSE REACTION TO PREVIOUOS POTASSIUM AND MAG RIDERS. TOLERATING WELL. POTASSIUM RIDER INFUSING ON rfa IV SITE, 2324 - TOLERATING BLOOD INFUSION W/O PROBLEMS. RESTING, EYES CLOSED, NO DISTRESS
--- NOTE | 2020-11-03 00:13 | NUR ---
AWAKES EASILY. ON 3L OXYMASK, CPOX AT BEDSIDE, SATS 98%. CALM, NO RESP DISTRESS, CONT TO HAVE MOIST COUGH. ivf /k RIDER INFUSING, TOLERATING WELL. FIRST UNIT prbc'S INFUSING, NO C/O ADVERSE REACTION. ABD MIDLINE INCISION PAD, SMALL AMOUNT OF DRAINAGE AT THIS TIME.
--- NOTE | 2020-11-03 01:21 | NUR ---
resing, o2 3l oxymask in place, has tolerated k rider and blood transfusion. cont to have moist prod cough. resting, no distress. abd abd pads no need to change at this time, small amount of serous drainage noted.
--- NOTE | 2020-11-03 01:45 | NUR ---
2nd unit PRBC started, tolerated previous infusion well. no s/sx adverse raction. tolerating k riders, tele#[address] during potassium infusion. SR readings. pt calm,
--- NOTE | 2020-11-03 03:10 | NUR ---
no adverse reactin to second unit of PRBC
--- NOTE | 2020-11-03 04:30 | NUR ---
0355 - blood completed. no s/sx adverse reaction. has tolerated K riders well 0405 - pt on 3l, turned and repositioned. sob with exertion present. O2 increased to 6L during procedure, sats 85%, then down to 3L, calm. R24.abd dressing replaced saturated with seround drainage. midline abd incision no changes. lungs assessed, coarse, dim at bases. moist productive cough present. 0428 - started getting very anxious, hyperventilating, sats decreased to 79%. O2 oxymask increased to 10l then 15L, sats 84%. then down to 79 again, resp 36. not redirectable, repositoning in bed hob elevated to comofrt. 0430 - called for assist, Charge nurse came in and rapid respponse called
--- NOTE | 2020-11-03 04:42 | NUR ---
LASIX 20MG IV GIVEN
--- NOTE | 2020-11-03 04:59 | NUR ---
MORPHINE 1MG IV GIVEN. CXR GIVEN. DR AMBROSIO AND DR VERDUZCO HERE. PT PLACED ON BIPAP, STILL VERY ANXIOUS
--- NOTE | 2020-11-03 05:14 | NUR ---
RECEIVED ANOTHER 1MG OG IV MORPHINE AND LASIX 20MG IV SECOND DOSE. CPAP IN PLACE
--- NOTE | 2020-11-03 05:23 | NUR ---
ATIVAN 1MG IV GIVEN, LABS REDRAWN BY DIE DEVELOPER
--- NOTE | 2020-11-03 05:24 | NUR ---
CALMER, RESP 27, SATS 94 ON CPAP, HR 132, CALMER, EYES CLOSED, 150/69 BP
--- NOTE | 2020-11-03 05:45 | NUR ---
CALLED SON CIARAN, UPDATED HIM ON PT CONDITION. PLANS TO TRY TO COME IN THIS AM.
--- NOTE | 2020-11-03 05:53 | NUR ---
pt received a 30minutes neb. resp 20, pulse 99, on BIPAP, sats 96%. calmer resting,
--- NOTE | 2020-11-03 06:26 | NUR ---
200CC CLOUDY URINE NOTED IN F/C. F/C WAS EMPTIED RIGHT AFTER GIVING FIRST DOESE OF LASIX. 200CC MORE EMPTIED AT 0642
--- NOTE | 2020-11-03 06:56 | NUR ---
PT RESTING, BIPAP. SON IN ROOM
--- NOTE | 2020-11-03 07:15 | NUR ---
REPORT RECIEVED FROM ALEKSANDAR MARTINEZ. DR VERDUZCO AND DR VERDUZCO IN ROOM TO SEE PT. SON CIARAN AT BEDSIDE. PT TO HAVE SURG THIS AFTERNOON SOMETIME. PT ON CPAP AND ASLEEP.
--- NOTE | 2020-11-03 07:35 | NUR ---
@ 0432 RAPID RESPONSE CALLED DUE TO PT CONDITION CHANGE. O2 SATS ON 15L 80%, LABORED BREATHING, DUSKY, EYES CLOSED, RESP 45, HR VIA TEL WAS SUSTAINING ABOVE 130-136. PT HAD PREVIOUSLY BE SUSTAINING BETWEEN 80-95 HR VIA TELE. PT PRIMARY REPORTED THAT PT HAD BEEN CALM, RELAXED WITH O2 SATS ABOVE 90, AND SUDDENLY HER BREATHING BECAME MORE LABORED, WITH SATS DROPPING AND HR INCREASING. PRIMARY NOTIFIED DR VERDUZCO @ 0435, RECEIVED ORDER FOR IV LASIX 20 MG. NOTIFIED RT, REQUESTED BIPAP. NOTIFIED DR AMBROSIO @ 0439. RELAYED PT CONDITION, ORDERS RECEIVED. VS @ 0440 P128, SPO2 93% 15 L NRB; 175/95 (113), R32. PREVIOUS TO THIS, TEMP WAS WNL. 0453 BIPAP STARTED 15/, 100% PER RT, P134, SPO2 97%. [address] VERDUZCO, AND HEBERT IN PT ROOM, XRAY HERE, MORPHINE IV GIVEN, RESP 28. 30 MIN NEB GIVEN PER RT. 1 MG ATIVAN GIVEN IV @0520, HR PER TELE 136. PRIMARY RN CONTINUED AT PT BEDSIDE. VS @ 0525 COMPLETED AND ENTERED. RESOLVED RAPID @ 0530. DR VERDUZCO IN TO SEE PT NEAR 0715. PT SON AT BEDSIDE WELL.
--- NOTE | 2020-11-03 08:20 | NUR ---
both nares swabbed for covid-19 without complication. sample taken to lab.
--- NOTE | 2020-11-03 09:09 | NUR ---
PT SLEEPING WITH OXY MASK AT 6L ON. ABLE TO ASSESS ABD AND DRESSING WO WAKING. PT DID WINCE UPON PALPATION. VS STABLE WITH OX AT 93%.
--- NOTE | 2020-11-03 10:04 | NUR ---
PT appeared to be sleeping. Said quiet prayer for healing and did not attempt to waken.
--- NOTE | 2020-11-03 11:14 | NUR ---
PATIENT IN BED RESTING. SURGICAL WIPE DOWN DONE. RT IN ROOM NOW. CALL LIGHT IN REACH. NO FURTHER NEEDS AT THIS TIME.
--- NOTE | 2020-11-03 11:15 | NUR ---
GASTON IN ROOM DOING WIPEDOWN FOR SURGERY. PT HAS EYES CLOSED BUT IS TALKING AND RESPONDING TO QUESTIONS. CHANGED OUT 1 ABD IT WAS MOSTLY SATURATED. SECOND WAS DRY. RT IN ROOM TO DO BREATHING TREATMENT.
--- NOTE | 2020-11-03 12:45 | NUR ---
PT OFF FLOOR WITH ALEKSANDAR BOGGS FOR SURGERY. SON CIARAN WITH PT. SENT WITH PORTABLE OX TANK.
--- NOTE | 2020-11-03 17:14 | NUR ---
PT REMAINS OFF FLOOR FOR PROCEDURE
--- NOTE | 2020-11-03 17:25 | NUR ---
11/03/20 1725 Almita Leahy 1716- PT ARRIVES TO PACU NONAROUSABLE TO NOXIOUS STIMULI WITH AN OPA IN PLACE. RESP RAPID AND SHALLOW. OXYGEN SAT HIGH 80'S TO LOW 90'S ON 10L VIA MASK. LUNG LAUREN ARE CLEAR THROUGHOUT. SMOOTH SANDERS, HAT BLOCKING OPERATOR AT THE BEDSIDE AND AWARE.
--- NOTE | 2020-11-03 18:00 | NUR ---
RECEIVED REPORT AND ASSUMED CARE OF PT IN PACU AT 1755. RT AND 4 NURSES AT BEDSIDE.
--- NOTE | 2020-11-03 18:59 | NUR ---
PT BACK TO ROOM WITH ALEKSANDAR GIBSON. PT AWAKE AND TALKATIVE. VS STABLE. CALLED CIARAN AT PT'S REQUEST TO LET HIM KNOW SHE IS BACK IN HER ROOM. PT ON 10L NON REBREATHER SATS 94%. PT WANTED TO GO HOME RIGHT NOW. RATES PAIN 0\10. WATCHING FOOTBALL. WOUND VAC ON AT 120. ABD BINDER IN PLACE.
--- NOTE | 2020-11-03 19:27 | NUR ---
REPORT RECEIVED FROM DAY SHIFT RN. PT LYING IN BED ALERT AND ORIENTED. DENIES PAIN OR NAUSEA. WOUND VAC AND ABD BINDER IN PLACE. IVF INFUSING WNL. 10L/NRB IN PLACE. SpO2 94%. HR 100'S. PT DENIES NEEDS AT THIS TIME. CALL LIGHT IN REACH. WHITE BOARD UPDATED.
--- NOTE | 2020-11-03 19:58 | NUR ---
DR. VERDUZCO ON THE PHONE FOR UPDATE ON PT. NEW TELEPHONE ORDERS RECEIVED. VERIFIED WITH READ BACK METHOD.
--- NOTE | 2020-11-03 21:00 | NUR ---
PT RESTING IN BED. poST-OP VITAL SIGNS ASSESSED. PT REPOSISITONED IN BED.
--- NOTE | 2020-11-03 21:56 | NUR ---
PT RESTINGIN BED. PT REPORTS PAIN 2/10, DECLINING PAIN MEDICATION. SCHEDULED MEDICATIONS ADMINISTED. VSS. PT PROVIDED WITH FRESH WATER. PT DENIES OTHER NEEDS AT THIS TIME.
--- NOTE | 2020-11-03 22:24 | NUR ---
CALL LIGHT ANSWERED. PT REPORTS DIFFICULTY SWALLOWING FROM WEARING THE NON REBREATHER MASK AND REQUESTS TO WEAR NASAL CANNULA. PT SWITCHED TO 5L/NC. SpO2 91%. HR 90'S. ICE CHIPS PROVIDED. PT REPORTS RELIEF.
--- NOTE | 2020-11-03 22:30 | NUR ---
EVENING ASSESSMENT COMPLETE. PT DENIES PAIN OR NAUSEA. IV ABX INFUSING WNL. BOWEL TONES HYPOACTIVE. WOUND VAC INTACT WITH SCANT AMOUNT SEROSANG DRAINAGE IN TUBING. ABD BINDER IN PLACE. COATES PATENT WITH YELLOW URINE. SCD'S IN PLACE. ASSISTED PT TO REPOSITION IN BED WITH PILLOWS. PT DENIES QUESTIONS OR CONCERNS. CALL LIGHT IN REACH.
--- NOTE | 2020-11-04 00:15 | NUR ---
NOTIFIED BY LIGHT ARMORED RECONNAISSANCE OFFICER THAT PT OXYGEN SATURATIONS LOW 80'S. IN TO ASSESS PT. SATS 84%. PT REPORTS SOB. NC REPLACED BY OXYMASK AT 7L. PT REPOSITIONED IN BED. HOB ELEVATED. SpO2 93%. PT REPORTS RELIEF. ICE CHIPS PROVIDED. OXYGEN TITRATED TO 5L, SATS REMAIN >90%. PT DENIES PAIN OR NAUSEA. NO FURTHER NEEDS.
--- NOTE | 2020-11-04 01:48 | NUR ---
PT RESTING IN BED. VSS. PT DENIES NEEDS AT THIS TIME.
--- NOTE | 2020-11-04 03:36 | NUR ---
PT RESTING ON LEFT SIDE. RESPIRATIONS EVEN. SpO2 90% ON 5L/OM. HR 80'S. NO APPARENT DISTRESS.
--- NOTE | 2020-11-04 05:35 | NUR ---
PT SLEEPING, AWOKE FOR VITAL SIGNS. PT DENIES NEEDS AT THIS TIME. PT COMPLAINT OF SCDS, EXPLAINED PURPOSE.
--- NOTE | 2020-11-04 06:00 | NUR ---
MORNING LABS DRAWN FROM RIGHT IJ PER PROTOCOL. PT REPORTS LOWER BACK PAIN. ASSISTED TO REPOSITION IN BED. REFUSES PRN FOR PAIN WHEN OFFERED MULTIPLE DIFFERENT TIMES, STATES "I'LL JUST LIVE WITH IT". WARM BLANKET AND ICE CHIPS PROVIDED. 4L/OM IN PLACE. SpO2 >90%. HR 80'S. DENIES SOB AT THIS TIME. IVF IFNUSING WNL. PT DENIES FURTHER NEEDS. CALL LIGHT IN REACH.
--- NOTE | 2020-11-04 07:05 | NUR ---
Report received from Amira HUERTAS. Pt resting in bed with eyes closed, breathing even and unlabored. On tele #7. No needs at this time, will continue plan of care.
--- NOTE | 2020-11-04 09:00 | NUR ---
Scheduled medications administered, IV ABX infusing, occupational therapist in room at this time to work with pt. Tele in place, pt on4L NC O2, tolerates well at rest and slightly drops (86%) with exertion. wound vac draining WNL. Benavides catheter in place. Pt works with OT, no other needs at this time
--- NOTE | 2020-11-04 09:00 | NUR ---
Notified by Dr. Leroy this pt will need a NPWT on dc. Paperwork given for to complete.
--- NOTE | 2020-11-04 09:40 | NUR ---
PT AWAKE IN BED. CALL LIGHT WITHIN REACH. NO FURTHER NEEDS AT THIS TIME.
--- NOTE | 2020-11-04 09:45 | NUR ---
Face sheet, chart notes, H&P, paper work for [facility] faxed to Brien at [facility] for NPWT. Called and spoke with Brien and update pt will more than likely dc on or Tue.
--- NOTE | 2020-11-04 09:50 | NUR ---
Spoke with Cielo and her son, Augusto. Pt states she is feeling better and stonger today. Pt remains on 3 02. They would like to meet with pts daughter and discuss placement to a SNF. Pt is now stating she would consider going to [facility] in [place] as [place] and [facility] are not currently taking pts.
--- NOTE | 2020-11-04 10:37 | OR ---
[facility] [address], [place] [address] Signed DATE OF OPERATION: 11/03/2020 SURGEON: Smooth Verduzco MD PREOPERATIVE DIAGNOSES: 1. Fascial dehiscence and small-bowel partial evisceration 2. Severe chronic hypoxemia and chronic obstructive pulmonary disease. 4. History of recent laparotomy with lysis of adhesions. POSTOPERATIVE DIAGNOSES: 1. Fascial dehiscence and small-bowel partial evisceration. 2. Severe chronic hypoxemia and chronic obstructive pulmonary disease. 3. History of recent laparotomy with lysis of adhesions. PROCEDURES: 1. Exploration of abdomen (laparotomy) with peritoneal lavage and closure of fascial dehiscence. 2. Placement of right internal jugular central venous catheter. 3. Application of wound VAC device. ANESTHESIA: General endotracheal, Smooth Wilkerson CRNA INDICATIONS: This 70-year-old white woman is admitted to the hospital on October 16, 2020 with small-bowel obstruction. She soon after admission had severe hypoxemia and respiratory distress, which required elaborate measures including BiPAP support and so forth. The small bowel obstruction resolved. She was improving under pulmonary status when she had recurrent bowel obstruction. Subsequent laparotomy was performed noting extensive dense adhesions in the pelvis which allowed for freeing of the bowel entirely. She has been recuperating well until recently when she had egress of serosanguineous fluid from the abdominal cavity. A CT scan was performed, which showed findings consistent with fascial separation and small bowel just beneath the skin level. On that basis, I have recommended to return to the operating room for culture of the wound, irrigation and closure of the fascial layer. The patient and her family understand the risks of bleeding, infection, recurrent problems, and of course progression or recurrence of her severe hypoxemic respiratory distress and wished to proceed. FINDINGS: Indeed small bowel loops were in the subcutaneous space just below the skin. There was Electronically Signed By: SMOOTH VERDUZCO MD 11/04/20 [facility] PATIENT NAME: GLORIA ADHIKARI OPERATIVE REPORT DATE OF : 48 REPORT #: [id number] PHYSICIAN: SMOOTH VERDUZCO MD PCP: MARY MARTINEZ PA-C REPORT IS CONFIDENTIAL AND NOT TO BE RELEASED WITHOUT AUTHORIZATION [facility] [address], [place] [address] Signed no sign of ischemic bowel. There was no evidence of bowel obstruction proper. There was no evidence of abscess. Fluid was Gram stained and cultured of course. It appeared that the closure failed due to the PDS suture having torn through the fascia rather than fracture of the suture itself. Irrigation was undertaken as were cultures of the peritoneal fluid and fascial reapproximation with interrupted #1 PDS suture was accomplished. Additionally, a central venous catheter was placed for IV access. She tolerated the procedure well and was extubated at the conclusion of procedure. DESCRIPTION OF PROCEDURE: In the mild Trendelenburg position, the head was turned to the left side of the neck prepared with a chlorhexidine solution and draped sterilely. Using the Arrow blue tip triple-lumen catheter kit, the right internal jugular vein was easily accessed showing dark nonpulsatile blood. A flexible J-wire was passed down the needle. The site was incised with an #11 blade and dilated with enclosed blue dilator and a previously inspected Arrow blue tip triple-lumen catheter which had been irrigated with heparinized saline was passed over the wire. The wire was removed. The catheter was withdrawn several cm based on her small body habitus. It was secured to the skin with the enclosed collar device and anti-infective disk and an OpSite dressing. Plan was then made for abdominal operation. A Benavides catheter was already in place. An orogastric tube was placed. The G-tube and abdomen were prepared in continuity with chlorhexidine solution and draped sterilely. Hemoclips were removed from the skin revealing serous fluid drainage in the subcutaneous space with small bowel loops. Notably, they were not ischemic, had no evidence of leakage. There was no sign of abscess. Fluid from the peritoneal cavity was obtained for Gram stain and cultures. The small bowel loops were largely freed. There was certainly no sign of obstruction. No sign of abscess or fistula. The bowel loops were freed from the anterior abdominal wall with blunt dissection with all due care and inspection taken inferiorly as well. There was failure of wound closure related to the PDS suture having pulled through the fascia itself. Irrigation was undertaken with containing saline solution. The midline fascia was reapproximated with interrupted #1 PDS suture in a Smead-Guidry configuration. Irrigation was undertaken throughout. The wound VAC was cut to appropriate length and secured with the tape dressing applied to 120 mmHg suction. She was carefully extubated and transferred to recovery room in good condition having suffered no complication. Sponge, needle, and instrument counts were reported as correct x3. Electronically Signed By: SMOOTH VERDUZCO MD 11/04/20 [facility] PATIENT NAME: GLORIA ADHIKARI OPERATIVE REPORT DATE OF : 48 REPORT #: [id number] PHYSICIAN: SMOOTH VERDUZCO MD PCP: MARY MARTINEZ PA-C REPORT IS CONFIDENTIAL AND NOT TO BE RELEASED WITHOUT AUTHORIZATION [address] [address] Signed MD [facility] /[id number] cc: MD Mary Ruiz PA-C Brian Piteo, MD Copies: MAIRA NYE MD, CHLOE K PA-C PITEO, BRIAN DO ~ Electronically Signed By: SMOOTH VERDUZCO MD 11/04/20 1037 PATIENT NAME: GLORIA ADHIKARI OPERATIVE REPORT DATE OF : 48 REPORT #: [id number] PHYSICIAN: SMOOTH VERDUZCO MD PCP: MARY MARTINEZ PA-C REPORT IS CONFIDENTIAL AND NOT TO BE RELEASED WITHOUT AUTHORIZATION
--- NOTE | 2020-11-04 11:15 | NUR ---
In patient's room for rounding, discussed lunch and dinner options, care plan, oxygen, fluids, etc. Pt resting comfortably and is in good spirits, no other needs.
--- NOTE | 2020-11-04 12:30 | NUR ---
Pt requests to try to use commode, passed gas but no BM. Linens and gown changed, new allevyn placed to coccyx which is red, abrasion noted, pt repositioned with pillows to relieve pressure on tailbone. Pt denies pain and refuses any pain medication at this time. No other needs at this time.
--- NOTE | 2020-11-04 13:14 | NUR ---
PT AWAKE IN BED WATCHING TV. PT HAS CALL LIGHT WITHIN REACH. NO FURTHER NEEDS AT THIS TIME.
--- NOTE | 2020-11-04 14:36 | NUR ---
RN notified pt had low UOP, 200ml noted this shift from goins bag. Pt bladder scanned and found 13ml in bladder, pt reports no urgency to void. Assessment complete, IVF infusing. Lungs diminished, slight wheeze noted on occasion. SPO2 WNL at 94% on 4L O2. Wound vac WNL, abdominal binder in place. Pt has no other needs at this time
--- NOTE | 2020-11-04 15:30 | NUR ---
Pt resting in bed with no needs at this time, respirations even and unlabored, watching tv. IVF infusing WNL. CPOX, Tele, oxymask in place. Call light in reach.
--- NOTE | 2020-11-04 17:59 | NUR ---
Rounded on patient who is resting in bed, dinner tray in room. She states has no needs at this time, feeling generally well. Call light in reach.
--- NOTE | 2020-11-04 18:03 | NUR ---
PT AWAKE IN BED WATCHING TV. COATES EMPTIED. CALL LIGHT WITHIN REACH. NO FURTHER NEEDS AT THIS TIME
--- NOTE | 2020-11-04 19:41 | NUR ---
REPORT RECEIVED FROM DAY SHIFT RN. PT LYING IN BED ALERT AND ORIENTED. BREATHING LABORED. HR 130'S. SpO2 89-93% ON 8L OXYGEN. PT ANXIOUS ABOUT POTENTIAL DISCHARGE TO SNF. RN X 3 IN ROOM TO PROVIDE COMFORT. PRN MORPHINE 1MG ADMINISTERED FOR SOB. PT REPOSITIONED IN BED. HOB ELEVATED. ABD BINDER LOOSENED FOR THIS TIME. SON CALLED PER PT REQUEST. AFTER PRN ADMINISTRATION AND THERAPEUTIC COMMUNICATION PT REPORTED RELIEF. CURTAIN LEFT OPEN FOR OBSERVATION. TELE AND CPOX IN PLACE. CALL LIGHT IN REACH.
--- NOTE | 2020-11-04 20:15 | NUR ---
PT REPORTS CONTINUED ANXIETY. DR. VERDUZCO CALLED AND UPDATED. TELEPHONE ORDERS RECEIVED VERIFIED WITH READ BACK METHOD. DR. VERDUZCO WOULD LIKE HOSPITALIST CONSULT TO TX ANXIETY. SPOKE WITH DR. PHELPS AT [facility]. AT THIS TIME [employer] WAS DOWN SO NO ORDERS/PROGRESS NOTES WERE AVAILABLE FOR REVIEW AND NO ORDERS WERE RECEIVED. PT SON AT BEDSIDE DURING THIS TIME. PT STATES "I IMMEDIATELY FELT BETTER WHEN HE (SON-CIARAN) WALKED INTO THE ROOM". SpO2 WNL. HR 90'S-100'S.
--- NOTE | 2020-11-04 21:00 | NUR ---
PT CALLED REQUESTED TO BE REPOSITIONED. POWER WASHER YENNY AND THIS RN REPOSITIONED, PT SON CIARAN LEAVING FOR THE NIGHT.
--- NOTE | 2020-11-04 21:40 | NUR ---
IN ROOM TO REPOSITION PT AND ADMINISTER PM MEDICATIONS. WHILE TURNING PT IN BED WITH PRELOAD SUPERVISOR ASSIST TO REPOSTION ABD BINDER AND STRAIGHTEN LINEN IT WAS NOTED PT HR INCREASED, SpO2 DOWN, AND PT BEGAN C/O SOB. PT RETURNED TO HER BACK WITH HOB ELEVATED. PT ALLOWED TO REST BEFORE ATTEMPTING TO ADMINISTER MEDS. MEDS CUT IN HALF AND GIVEN ONE AT A TIME. PT WITH DIFFICULTY CATCHING HER BREATH AND NOTED TO HAVE INCREASED ANXIETY. THIS RN AT BEDSIDE TO COMFORT PT. PT EXPRESSED FEAR OF DYING AND ANXIETY OVER DISCHARGE TO SNF. HR CONTINUED TO ELEVATE AND SpO2 DROP. OXYGEN TITRATED TO MAINTAIN SATS >88% ON OXYMASK. PRN MORPHINE ADMINISTERED FOR SOB. AGAIN, PT ALLOWED TO REST AND "CATCH HER BREATH" BEFORE ATTEMPTING PO ASSEMBLER FILTERS. PT WAS ABLE TO TAKE SEVERAL PO MEDS. PT CONTINUED TO REPORT ANXIETY. HR UP TO 140'S. SpO2 80'S. RN REMAINED AT BEDSIDE WHILE THIS RN WENT TO CALL HOSPITALIST RECOMMENDED BY DR. VERDUZCO FOR RECOMMENDATIONS FOR TX ANXIETY. HOSPITALIST UNAVAILABLE. DR. VERDUZCO CALLED AND UPDATED ON PT CONDITION. NEW TELEPHONE ORDERS RECEIVED VERIFIED WITH READ BACK METHOD. DR. PHELPS IN PT ROOM AT THIS TIME. PRN FOR ANXIETY GIVEN AT 2240. BREATHING NOTED TO BE LESS LABORED. HR REMAINED 140'S. VERBAL ORDERS FROM DR. PHELPS RECEIVED AND MEDS ADMINISTERED. PT PLACED ON 12L/NRB. SATS REMAINED LOW 80'S. HR 100'S. OXYGEN TITRATED TO 15L/NRB. LASIX ADMINISTERED. RT IN ROOM FOR DEEP SUCTION X 2 WITH NO RESULTS. ADDITIONAL DOSE OF LASIX ADMINISTERED AT 0001. PT SpO2 REMAINED LOW 80'S AND WAS THEREFORE PLACED ON BIPAP AT 0030 AT 100% FIO2. PT DROWSY BUT RESPONSIVE. BIPAP SETTINGS TITRATED TO KEEP SATS >88%. HR 70'S-80'S.
--- NOTE | 2020-11-05 01:02 | NUR ---
IV MAG INFUSING ORDERED. PT RESTING WITH EYES CLOSED. BIPAP AT 50% FIO2. SATS 90%. HR 90'S.
--- NOTE | 2020-11-05 02:09 | NUR ---
SpO2 LOW 80'S. FIO2 TITRATED TO 55%. PT REPOSITIONED IN BED WITH PILLOWS TO LEFT SIDE. BLE ELVATED. COATES WITH 1000 ML CLEAR YELLOW URINE. SpO2 93% AT THIS TIME. HR 70'S. RESPIRATIONS 20.
--- NOTE | 2020-11-05 04:40 | NUR ---
PT RESTING IN BED WITH EYES CLOSED. SpO2 96% ON BIPAP. HR 80'S.
--- NOTE | 2020-11-05 05:40 | NUR ---
VS AND I&O COMPLETE. PT DROWSY BUT AWAKENS EASILY. ALERT AND ORIENTED ANSWERING QUESTIONS APPROPRIATELY. BIPAP OFF PER PT REQUEST. OXYMASK 7L IN PLACE. ASSIST WITH ORAL CARE. SCHEDULED LABS DRAWN PER PROTOCOL. COATES PATENT WITH 600 ML CLEAR YELLOW URINE. ASSISTED PT TO REPOSITION. PT DENIES PAIN OR NAUSEA. NO FURTHER NEEDS. CALL LIGHT IN REACH.
--- NOTE | 2020-11-05 07:01 | NUR ---
PT CALLED, NEEDED HELP. FOUND PT LAYING OVER HER SIDE RAIL, NO OXYGEN ON , [place]NE, O2 @ 83. PROMPTLY REPLACED OXIMASK O2 UP TO 10L, SLOWLY RECOVERED, PRIMARY RN AND THIS RN REPOSITIONED.
--- NOTE | 2020-11-05 08:05 | NUR ---
SPOKE WITH PT SON CIARAN, UPDATED ON HER NIGHT. CONVERSATION LASTED OVER 20 MIN
--- NOTE | 2020-11-05 08:53 | NUR ---
Spoke with Torrie from [facility] and they have accepted Cielo. Spoke with Dr. Arellano in 0830 meeting and they will transport or Tue.
--- NOTE | 2020-11-05 09:10 | NUR ---
Spoke with Dr. Leroy and Dr. Arellano, plan for pt to dc tomorrow or Tuesday. Orders for SNF printed and given to Dr. Leroy.
--- NOTE | 2020-11-05 09:15 | NUR ---
Medications administered, assessment of patient complete, Pt works with occupational therapist and walks in room, sits up in chair. IVF infusing WNL. O2 via oxymask at 5L at this time, remains in 90's range. G tube WNL. Benavides cath draining WNL. Pt reports no pain or needs, call light in reach, family at bedside.
--- NOTE | 2020-11-05 10:00 | NUR ---
Met with pt and children. Discussed pt has now decided she wants to go to a SNF. Son and daughter aware. UPdated I spoke with Torrie from [facility] and they will accept her tomorrow or Tuesday when she is discharged. Children would prefer [facility] to transport as it would be by [facility]. Kids have concerns getting mom in and out of their car. Pt will need a wound vac and Bipap or noninvasive ventilator.
--- NOTE | 2020-11-05 11:19 | NUR ---
Pt requests to get back in bed, 1PA and tolerates well. IVF infusing WNL. O2 via oxymask with 4-5L and SPO2 95%. Benavides catheter removed WNL. Pt in good spirits, but states would like to rest after working with OT. No needs at this time, call light in reach, repositioned with pillow under R hip to provide relief to tailbone.
--- NOTE | 2020-11-05 12:25 | NUR ---
PO ABX administered, pt tolerates well. Resting in bed after lunch, states no needs. Call light in reach.
--- NOTE | 2020-11-05 13:42 | NUR ---
Nurses station let me know PT was in low spirit and would probably benefit from a visit. I went by PT's room a couple times but PT was not available due to PT care.
--- NOTE | 2020-11-05 14:00 | NUR ---
Discussed possibility of noninvasive vent with Torrie, pt cannot admit with this would need to use a CAPAP or BIpap. They need settings and mask size. Spoke with RT and received current Bipap settings. Dr. Arellano notified and will complete orders.
--- NOTE | 2020-11-05 14:30 | NUR ---
Pt calls and requests to use commode, 15ml of urine voided. Pt back to bed and pillow under L hip. She is on 5L OM, spo2 95%. She reports feeling anxious, this RN stays with patient until she is reassured. She has no further needs at this time, call light in reach.
--- NOTE | 2020-11-05 16:09 | NUR ---
In to round with patient, resting in bed with oxymask in place, appears slightly anxious but calms with reassurance. Repositioned in bed with pillow under hips, no further needs at this time. Call light in reach.
--- NOTE | 2020-11-05 17:15 | NUR ---
PO ABX administered, pt tolerates well with applesauce. On 5L NC with SPO2 at 94%. Pt is resting in bed, eating jello, states no needs at this time.
--- NOTE | 2020-11-05 19:30 | NUR ---
SHIFT REPORT FROM NURSE VARGAS. PT IS AWAKE IN BED, WITH DAUGHTER AT BEDSIDE. PT REPORTS "TERRIBLE" PAIN IN HER ABDOMEN. WARM BLANKET PROVIDED. PT DECLINES PAIN MEDS AT THIS TIME.
--- NOTE | 2020-11-05 20:18 | NUR ---
PT NOW AGREES TO PRN TYLENOL. 100MG TYLENOL PO ADMINISTERED. PT THEN NEEDS TO GET UP TO BSC. PT DESATS TO 76% FOLLOWING MED ADMINISTRATION. OXYMASK INCREASED TO 15L. PT RECOVERED. RT KISHA IN ROOM TO ADMINISTER NEB. PT'S DAUGHTER AND SON IN LAW ARE LEAVING FOR THE NIGHT
--- NOTE | 2020-11-05 21:15 | NUR ---
IN ROOM FOR MEDS AND ASSESSMENT. PT REPORTS IMPROVEMENT IN PAIN IN ABDOMEN FOLLOWING PRN PAIN MEDS. WOUND VAC CDI; 120MMHG. GTUBE FLUSHED WITH 40ML TAP WATER. ABDOMEN BAND IN PLACE. BRUISING OVER PUBIS REMAINS. LUNG SOUNDS CLEAR. PT IS DROWSY; DOES WAKE AND SIT UP TO TAKE EVENING MEDS. PT HAS MOIST COUGH THAT IS SOMETIMES PRODUCTIVE. OXYMASK ON 7L; SPO2 95%. PT HAS PAIN WITH MOVEMENT BUT DECLINES ANY FURTHER PRN MEDS. PT REPOSITIONED, CALL LIGHT WITHIN REACH ALONG WITH BEDSIDE TABLE. NO FURTHER NEEDS AT THIS TIME.
--- NOTE | 2020-11-05 23:08 | NUR ---
PATIENT TELE BATTERY CHANGED, PATIENT HAD NO OTHER IMMEDIATE NEEDS. CALL LIGHT LEFT WITHIN REACH.
--- NOTE | 2020-11-06 00:50 | NUR ---
CALL LIGHT ANSWERED.SBA TO BSC TO VOID. PT RETURNED TO BED, PILLOW UNDER LT HIP. CALL LIGHT WITHIN REACH. SPO2 97% ON 7L OXYMASK.
--- NOTE | 2020-11-06 03:51 | NUR ---
pt DESAT TO 82%; CHECKED ON PT; OXYMASK ON, SOMEWHAT SHALLOW CLOSED MOUTH BREATHING. O2 INCREASED TO 12L OXYMASK. PT RECOVERED TO 94% ; TITRATED PT BACK TO 7L OXYMASK
--- NOTE | 2020-11-06 05:22 | NUR ---
PT HAD BEEN UP TO BSC AND GOT VERY SOB, WORK OF BREATHING INCREASED. CHARGE NURSE SILVIANO WAS CALLED TO THE ROOM BY MARCELL RICE. CHARGE NURSE SILVIANO PLACED PT ON BIPAP; PT ASKED THAT NURSING STAFF STAY WITH HER. ALEKSANDAR SHORE AT BEDSIDE, THIS RN ADMINISTERED 1MG IV MORPHINE. SPO2 CURRENTLY AT 94% ON BIPAP. WILL CONTINUE TO MONITOR.
--- NOTE | 2020-11-06 05:58 | NUR ---
PATIENT VITALS, IS AND OS CHARTED. ROOM TIDIED, TRASH CANS EMPTIED, FRESH WATER AND TWO WARM BALANKETS PROVIDED. CALL LIGHT LEFT WITHIN REACH, NO OTHER IMMEDIATE NEEDS AT THIS TIME.
--- NOTE | 2020-11-06 07:45 | NUR ---
REPORT RECEIVED FROM NIGHT RN AND PT. CARE RESUMED. PT. IS ALERT AND ORIENTED. SHE REPORTS ABDOMINAL TENDERNESS. ADMIN. PERCOCET. WOUND VAC IN PLACE, DRAINING AND SUCTION SET TO 120. BOWEL TONES RARE IN RUQ, RLQ AND HYPOACTIVE IN LUQ, LLQ. LUNGS COARSE IN THE BASES. IJ LUMENS FLUSHED WITH SALINE AND HEPARIN LOCKED. PT. ON 5L OXYMASK AND O2 SAT IS 92%. PLACED ON NC WHILE EATING. +2 PITTING EDEMA PRESENT IN LLE AND +1 IN RLE. G-TUBE FLUSHED WITH 25ML TAP WATER. DISCUSSED POC AND PAIN MANAGEMENT. PT. LEFT RESTING WITH CALL LIGHT IN REACH.
--- NOTE | 2020-11-06 09:30 | NUR ---
Spoke with Sheryl. Bowen to plan to dc to [facility] tomorrow. UPdated they have ordered a Bipap for use and have a wound vac. They will transport her. I'm waiting to hear if family can ride with her or need to follow in a car.
--- NOTE | 2020-11-06 11:03 | NUR ---
ROUNDING ON PT. SHE DENIES PAIN AT THIS TIME AND STATES PERCOCET HELPED. 02 SAT IS 94% ON 4L NC. PT. STATES SHE IS ANXIOUS TO GO TO [facility] AND GET HER STRENGTH BACK. ASSISTED WITH REPOSITIONING. PT. LEFT RESTING WITH CALL LIGHT IN REACH.
--- NOTE | 2020-11-06 11:25 | NUR ---
PT. USED CALL LIGHT APPROPRIATELY FOR ASSISTANCE WITH GETTING OFF OF BEDSIDE COMMODE. PT. HAD AMBULATED BY HERSELF TO IT. THIS NURSE ASKED PT. TO USE CALL LIGHT NEXT TIME FOR SAFETY GOING TO THE COMMODE. PT. VOIDED 100ML. ASSISTED TO THE CHAIR. PT. APPEARS DEPRESSED. WHEN ASKED, PT. RESPONDED SHE IS ANXIOUS ABOUT LEAVING AND GOING TO FACILITY. PT. REASSURED. DENIED FURTHER NEEDS. LEFT RESTING WITH CALL LIGHT IN REACH.
--- NOTE | 2020-11-06 12:08 | NUR ---
SBA ASSIST AMBULATING FROM CHAIR TO THE BEDSIDE COMMODE. PT. VOIDED 100ML AGAIN. PT. REPORTS DIZZINESS WHEN RETURNING TO BED THAT CONTINUED WHILE LYING DOWN. VITALS TAKEN AND STABLE. DIZZINESS SUBSIDED AFTER A FEW MINUTES. PT. ASSISTED WITH SITTING UP IN BED FOR LUNCH. LEFT RESTING WITH CALL LIGHT IN REACH.
--- NOTE | 2020-11-06 13:29 | NUR ---
PT. REPORTS FEELING LIKE SHE HAS A LOT OF URINE IN BLADDER AND IS VOIDING SMALL AMOUNTS FREQUENTLY. BLADDER SCANNED PT. AND 210ML IN HER BLADDER. DENIES PAIN AT THIS TIME. ASSISTED PT. WITH HEATING LUNCH AND LEFT SITTING UPRIGHT EATING.
--- NOTE | 2020-11-06 15:09 | NUR ---
Called and spoke with S[facility]. They will have a Bipap in tomorrow. Would like to transport pt at 1430. I will notify Drs and check if plan remains to dc tomrrow.
--- NOTE | 2020-11-06 15:40 | NUR ---
PT CALL LIGHT ON. PT REPORTS SEVERE SHORTNESS OF BREATH STATING "I CAN'T GET ANY AIR." RT TO BEDSIDE. NEBULIZER TREATEMENT GIVEN. OXGYEN SATURATION AT 88%. PT VERY ANXIOUS AND SITTING IN TRIPOD POSITION. CPAP PLACED ON PT. PTS PRIMARY RN UPDATED AND TO ROOM. PT CONTINUES TO HAVE SHORTNESS OF BREATH. PRN MORPHIN GIVEN. OXGYEN SATURATION RISES TO 90%, PT REPORTS IMPROVED SHORTNESS OF BREATH AND BEGINS TO RELAX. PTS PRIMARY RNDAVID, AT BEDSIDE WITH PT. NO ADDITIONAL ASSISTANCE NEEDED.
--- NOTE | 2020-11-06 16:11 | NUR ---
PT. IS SITTING UPRIGHT IN BED WITH KRISTEN RT AND OSBALDO RN AT BEDSIDE SHE REPORTS SOB. 02 SAT IS 87% ON 3L NC. RR IS 35 AND HR IS 123 PT. PLACED ON BIPAP AND ADMIN. PRN MORPHINE. RT ADMIN NEB TX. AFTER TX PT. RETURNED TO OXYMASK 4L. O2 SAT IS 92% AND HR IS 99. PT. REASSURED AND LEFT RESTING WITH CALL LIGHT IN REACH.
--- NOTE | 2020-11-06 16:56 | NUR ---
PT USED CALL LIGHT APPROPRIATELY FOR HELP TO THE COMMODE. AMBULATED WITH SBA AND TOLERATED WELL. VOIDED 200ML. DENIED FURTHER NEEDS AT THIS TIME.
--- NOTE | 2020-11-06 19:10 | NUR ---
SHIFT REPORT RECEIVED FROM DAYSHIFT RN DAVID AT BEDSIDE. pt AWAKE AND RESTING IN BED. RR EVEN AND UNLABORED, pt UP SBA WITH FWW FROM BSC AND BACK TO BED AFTER VOID. STEADY ON FEET. NO ADDITIONAL NEEDS VERBALIZED, CALL LIGHT IN REACH.
--- NOTE | 2020-11-06 21:03 | NUR ---
IN TO SPO2 CHECK PT, PT FEELS LIKE HER O2 WAS LOW, PT WAS 82%, PT RECENTLY UP TO VOID, ENCOURAGED PT TO RELAX, TAKE DEEP BREATHS, O2 UP TO 85-86%, PT ASKED ME TO LET THE NURSE KNOW, PRIMARY DAINA, GENERAL PRODUCTION MANAGER INFORMED, BACK IN TO CHECK PT, PT STATES HER SOB IS FEELING IMPROVED, WATHING TV WITH FAMILY, O2 UP TO 90-91% BUT DROPS DOWN TO 88-89% BEFORE RECOVERING, WILL INFORM PRIMARY RN
--- NOTE | 2020-11-06 22:00 | NUR ---
ASSESSMENT COMPLETE, SCHEDULED MEDS GIVEN (SEE EMAR). pt UNABLE TO TAKE LARGE PILLS, REQUESTS MUCINEX BE CUT, UNABLE TO CUT OR CRUSH PER TELEPHARMACY. pt REFUSES TO TAKE AT THIS TIME D/T INABILITY TO SWALLOW PILL WHOLE. METAL RIVET MACHINE OPERATOR BETH AWARE. pt DENIES PAIN, VSS. pt ON 5LOXYMASK. LUNG SOUNDS CLEAR, NO DISTRESS NOTED. G-TUBE FLUSHED WITH 50MLS TAP WATER AND RECLAMPED. INSERTION SITE CARE PROVIDED, SKIN CLEANED. WOUND VAC REMAINS UNCHANGED, SETTINGS REMAINS AT 120MHG SUCTION. BLE ELEVATED WITH PILLOWS X2, LLE WORSE COMPARED TO RLE. CENTRAL LINE DRESSING INTACT, WILL MONITOR FOR CHANGES, RECENTLY REINFORCED EARLIER BY MUKESH. BRISK BLOOD RETURN TO LUMENS X3, FLUSHED WITH SALINE AND HEP LOCKED PER POLICY. NO FURTHER NEEDS, CALL LIGHT IN REACH.
--- NOTE | 2020-11-07 01:00 | NUR ---
pt IN BED, EYES CLOSED. RR EVEN AND UNLABORED. 5LOXYMASK IN PLACE, NO DISTRESS NOTED. CALL LIGHT IN REACH.
--- NOTE | 2020-11-07 02:10 | NUR ---
in to assist pt to the bsc, no further needs at this time
--- NOTE | 2020-11-07 02:26 | NUR ---
pt RESTING QUIETLY IN BED, RECENTLY RETURNED FROM BATHROOM TO VOID WITH HELP FROM MARCELL VICTORIA. LIGHTS TURNED OFF PER pt REQUEST. SPO2 SPOT CHECKED, RESULT OF 93-94% ON 5LOXYMASK, HR 80'S. NO NEEDS AT THIS TIME. CALL LIGHT IN REACH. pt EDUCATED ON IMPORTANCE TO CHANGE POSITIONS IN BED WHEN AWAKE TO PREVENT FURTHER SKIN BREAKDOWN TO COCCYX, pt VERBALIZED UNDERSTANDING. ALLEVYN ALREADY IN PLACE. pt ABLE TO CHANGE POSITIONS IN BED INDEPENDENTLY.
--- NOTE | 2020-11-07 05:18 | NUR ---
THIS RN WALKED BY pt's ROOM, THIS RN NOTICED pt WAS STANDING UP ON EDGE OF BED, INCONTINENT OF BM. WHEN ASKED IF pt CALLED FOR HELP, pt STATES, "MY CALL LIGHT WASN'T WORKING". MAKAYLA CARE COMPLETED AND pt ASSISTED BACK TO BED, SPO2 87%, TITRATED FROM 5L OXYMASK TO 7-8LOXYMASK FOR SEVERAL MINUTES BEFORE TITRATING BACK TO 5LOXYMASK. NEW SOCKS PROVIDED, ASSESSMENT COMPLETE. NO NEW CONCERNS. CALL LIGHT IN REACH AND TESTED, WORKING APPROPRIATELY. BED ALARM ON FOR SAFETY, NO FURTHER NEEDS.
--- NOTE | 2020-11-07 07:55 | NUR ---
RAPID COVID TEST DONE PER DR ORDER. RAPID COVID TEST COLLECTED FROM BOTH NARES W/O ISSUE. PT TOLERATED WELL.
--- NOTE | 2020-11-07 08:37 | NUR ---
Patient participated in AM by wiping her hands and face with warm wash cloth. Patient refused getting up to the chair before breakfast. Breakfast was ordered.
--- NOTE | 2020-11-07 10:05 | NUR ---
Chart completed, copied and faxed with Rx's to Torrie at [facility].
--- NOTE | 2020-11-07 10:30 | NUR ---
PT. HAS HAD TWO VERY LARGE LOOSE, INCONTINENT STOOLS WITHIN AN HOUR. MD NOTIFIED. PHONE ORDER GIVEN FOR A ONE TIME DOSE OF LOPERAMIDE.
--- NOTE | 2020-11-07 10:50 | NUR ---
Patient vitals, I&Os are complete. Patient recieved warm blankets. Patient had two incontinent large bowel movements, liquid. Patient via commode, 1-2Pa. Call light is in reach.
--- NOTE | 2020-11-07 11:05 | NUR ---
FINISHED GOODS INSPECTOR NOTIFIED THIS NURSE THAT THE PATIENT'S VITALS ARE ABNORMAL. MONITOR SHOWING HR OF 30. APICAL PULSE IS 72 AND IRREGULAR AND PT. REPORTS DIZZINESS. UPDATED. EKG ORDERED.
[2020-11-07] MEDS ORDERED: ACETAMINOPHEN500 MG PO (11:50)
[2020-11-07] MEDS ORDERED: MUCINEX600 MG PO (11:50)
[2020-11-07] MEDS ORDERED: METOPROLOL TART25 MG PO (11:50)
[2020-11-07] MEDS ORDERED: FAMOTIDINE20 MG PO (11:51)
[2020-11-07] MEDS ORDERED: LOPERAMIDE2 MG PO (11:54)
[2020-11-07] MEDS ORDERED: FLAGYL500 MG PO (11:54)
--- NOTE | 2020-11-07 13:15 | NUR ---
CENTRAL LINE REMOVAL COMPLETE WITH PT. . CATHETER INTACT WHEN REMOVED. PRESSURE HELD FOR 10 MINUTES AND NO BLEEDING. DRESSING APPLIED.
--- NOTE | 2020-11-07 14:30 | NUR ---
.PT. LEFT WITH ALL BELONGINGS AND DISCHARGE PACKET VIA WHEELCHAIR WITH SIMULATION ANALYST. ON 4L NC AND DENIES PAIN AT THIS TIME. REPORT CALLED TO DAVID OROURKE RN.
--- NOTE | 2020-11-07 14:42 | NUR ---
Patient is about to discharge. Vitals, I&Os are complete.
--- NOTE | 2020-11-07 15:05 | NUR ---
BP 180/83 AND HR IS 44. RETAKEN MANUALLY. PT. REPORTS NAUSEA AND "JUST NOT FEELING WELL". PT. ADMIN IV ZOFRAN. ASSISTED WITH REPOSITIONING. NOTIFIED. NO NEW ORDERS.
--- NOTE | 2020-11-09 18:04 | EKG ---
[facility] [address] [facility] [address] [place] [address] Signed Sinus rhythm with premature atrial complexes Cannot rule out Inferior infarct , age undetermined Anterolateral infarct , age undetermined Abnormal ECG No previous ECGs available Confirmed by MAIRA NYE MD ([id number]) on 11/09/2020 6:03:47 PM Electronically Signed By: MAIRA NYE MD 11/09/20 1804 PATIENT NAME: ONOFREGLORIAANNETTE Electrocardiogram DATE OF : 48 PHYSICIAN: MAIRA NYE MD REPORT #: [id number] REPORT IS CONFIDENTIAL AND NOT TO BE RELEASED WITHOUT AUTHORIZATION
== END 2020-11-07 14:50 | disposition home or self-care (01) | DRG 335 ==
LOC: ED 21:11 → CCU 21:12 → MS 10-15 00:25 → CCU 10-15 00:25 → ED 10-15 00:25 → MS 10-15 01:00 → CCU 10-15 01:00 → MS 10-15 01:01 → CCU 10-15 11:50 → MS 10-16 15:20 → CCU 10-16 15:21 → MS 10-22 15:35
PROVIDERS: ADMIT Surgery; ATTEND Surgery
PROC: 5A09357 Assistance with Respiratory Ventilation, Less than 24 Consecutive Hours, Continuous Positive Airway Pressure (ICD-10-PCS; 2020-10-16)
PROC: 0D988ZZ Drainage of Small Intestine, Via Natural or Artificial Opening Endoscopic (ICD-10-PCS; 2020-10-25)
PROC: 3E0T3BZ Introduction of Anesthetic Agent into Peripheral Nerves and Plexi, Percutaneous Approach (ICD-10-PCS; 2020-10-25)
PROC: 0DN80ZZ Release Small Intestine, Open Approach (ICD-10-PCS; principal; 2020-10-25 15:00)
PROC: 30233N1 Transfusion of Nonautologous Red Blood Cells into Peripheral Vein, Percutaneous Approach (ICD-10-PCS; 2020-11-02)
PROC: 0JQ80ZZ Repair Abdomen Subcutaneous Tissue and Fascia, Open Approach (ICD-10-PCS; 2020-11-03)
PROC: 05HM33Z Insertion of Infusion Device into Right Internal Jugular Vein, Percutaneous Approach (ICD-10-PCS; 2020-11-03)
DX: K56.50 Intestinal adhesions [bands], unspecified as to partial versus complete obstruction (principal); J96.21 Acute and chronic respiratory failure with hypoxia; J98.11 Atelectasis; T81.31XA Disruption of external operation (surgical) wound, not elsewhere classified, initial encounter; J44.1 Chronic obstructive pulmonary disease with (acute) exacerbation; E78.5 Hyperlipidemia, unspecified; J44.9 Chronic obstructive pulmonary disease, unspecified; J47.9 Bronchiectasis, uncomplicated; F41.9 Anxiety disorder, unspecified; I25.2 Old myocardial infarction; Z98.890 Other specified postprocedural states; Z88.2 Allergy status to sulfonamides; Z88.5 Allergy status to narcotic agent; Z88.1 Allergy status to other antibiotic agents; Z88.8 Allergy status to other drugs, medicaments and biological substances; Z79.899 Other long term (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 therapy; J98.4 Other disorders of lung
CPT/HCPCS: 00790; 36556; 36600; 43752; 64450; 71045; 71260; 74018; 74150; 74177; 76942; 80048; 80053; 81001; 82803; 83690; 83735; 83880; 84484; 85007; 85025; 85651; 86850; 86900; 86901; 86922; 87070; 87075; 87205; 87493; 93005; 93010; 94640; 94660; 94668; 94760; 94762; 97110; 97116; 97162; 97165; 97530; 97535; 99285-25; C9803; J0131; J0330; J0456; J0690; J0692; J0696; J1100; J1160; J1170; J1644; J1650; J1720; J1885; J1940; J2060; J2185; J2250; J2270; J2405; J2704; J2765; J2920; J2930; J3010; J3475; J3480; J7040; J7060; J7121; Q0177; Q9967; U0003

== ENCOUNTER 2021-01-04 01:45 | Inpatient (IN) | payer MEDICARE ==
[~2021-01-04] VITALS: Ht 149.9 cm; Wt 42.0 kg
[~2021-01-04 01:45] MED LIST changes: +ACETAMINOPHEN500 MG PO; +FAMOTIDINE20 MG PO; +FLAGYL500 MG PO; +LOPERAMIDE2 MG PO; +METOPROLOL TART25 MG PO; +MUCINEX600 MG PO
--- OUTSIDE RECORDS SUMMARY | 2021-01-04 01:48 | XMS ---
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 [place]av[place] VISIT COUNT (12 MO.) 3 [facility] [address] TOTAL 7 NOTE: Visits indicate total known visits. ED/UCC VISIT TRACKING (12 MO.) 2021 01:45 [facility] TYPE: Emergency COMPLAINT: - SHORTNESS OF BREATH 12/07/2020 15:29 [facility] [place] TYPE: Emergency DIAGNOSES: - ABD PAIN - Other complications of gastrostomy 11/25/2020 23:45 [facility] TYPE: Emergency COMPLAINT: - Chest Pain_Minshemar 11/25/2020 21:46 [facility] [place] TYPE: Emergency DIAGNOSES: - ST elevation (STEMI) myocardial infarction of unspecified site - COVID-19 - Chronic obstructive pulmonary disease, unspecified - +COVID SOB 11/12/2020 20:30 [facility] [place] TYPE: Emergency DIAGNOSES: - SOB - Other specified abnormalities of plasma proteins - Retention of urine, unspecified - Chronic obstructive pulmonary disease with (acute) exacerbation - COVID-19 - Heart failure, unspecified 10/14/2020 21:11 [facility] [place] TYPE: Emergency COMPLAINT: - ABDOMINAL PAIN 10/12/2020 19:54 [facility] [place] TYPE: Emergency COMPLAINT: - GLF - LOC INPATIENT VISIT TRACKING (12 MO.) 11/25/2020 23:45 [facility] [place] TYPE: Medical Surgical COMPLAINT: - [facility] DIAGNOSES: 0. COVID-19 0. Non-ST elevation (NSTEMI) myocardial infarction 1. Non-ST elevation (NSTEMI) myocardial infarction 2. COVID-19 3. PNEUMONIA D/T CORONAVIRUS DIS 2018 4. Acute respiratory failure with hypoxia 5. Acute respiratory failure with hypercapnia 6. Unspecified severe protein-calorie malnutrition 7. Takotsubo syndrome 8. Cachexia 9. Nicotine dependence, cigarettes, uncomplicated 10. Chronic obstructive pulmonary disease, unspecified 11. Gastro-esophageal reflux disease without esophagitis 12. Nonrheumatic aortic (valve) insufficiency 13. Presence of cerebrospinal fluid drainage device 14. Dependence on supplemental oxygen 14. Essential (primary) hypertension 15. Essential (primary) hypertension 15. Gastrostomy status 16. Gastrostomy status 16. Dependence on supplemental oxygen 17. Hyperlipidemia, unspecified 18. Atherosclerotic heart disease of campo coronary artery without angina pectoris 19. Presence of aortocoronary bypass graft 20. CONTACT W/AND (SUSP) EXPOS COVID-19 21. 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 regional intermodal truck driver (current) use of aspirin 23. 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 plant operator (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 therapy 10/16/2020 15:20 [facility] [place] TYPE: Medical Surgical COMPLAINT: - SMALL BOWEL OBSTRUCTION DIAGNOSES: - Allergy status to sulfonamides - Other acute postprocedural pain - Allergy status to sulfonamides - Allergy status to other antibiotic agents - Acute respiratory failure with hypoxia - Acute and chronic respiratory failure with hypoxia - Atelectasis - Bronchiectasis, uncomplicated - Hyperlipidemia, unspecified - Anxiety disorder, unspecified - Allergy status to other drugs, medicaments and biological substances - Disruption of external operation (surgical) wound, not elsewhere classified, initial encounter - Other disorders of lung - Acute and chronic respiratory failure with hypoxia - Intestinal adhesions [bands], unspecified as to partial versus complete obstruction - Chronic obstructive pulmonary disease with (acute) exacerbation - Chronic obstructive pulmonary disease, unspecified - Essential (primary) hypertension - Disruption of external operation (surgical) wound, not elsewhere classified, initial encounter - Allergy status to narcotic agent - Other disorders of lung - Hyperlipidemia, unspecified - Other specified postprocedural states - 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 plant operator (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 therapy - Anxiety disorder, unspecified - Allergy status to other drugs, medicaments and biological substances - Old myocardial infarction - Bronchiectasis, uncomplicated - Old myocardial infarction - Allergy status to other antibiotic agents - 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 plant operator (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 therapy - Allergy status to narcotic agent - Atelectasis - Chronic obstructive pulmonary disease with (acute) exacerbation - Chronic obstructive pulmonary disease, unspecified - Other specified postprocedural states 10/12/2020 19:55 [facility] [place] TYPE: Observation COMPLAINT: - SYNCOPE DIAGNOSES: - Allergy status to narcotic agent - Nicotine dependence, cigarettes, uncomplicated - Dehydration - Allergy status to other drugs, medicaments and biological substances - Do not resuscitate - Allergy status to sulfonamides - Essential (primary) hypertension - Atherosclerotic heart disease of campo coronary artery without angina pectoris - Orthostatic hypotension - Diarrhea, unspecified - Panlobular emphysema - Hyperlipidemia, unspecified - Syncope and collapse - Allergy status to other antibiotic agents - Chronic respiratory failure with hypoxia [email or web address]
--- NOTE | 2021-01-04 08:09 | EKG ---
[facility] [address] [place], [place] [address] Signed Sinus tachycardia Right atrial enlargement Left axis deviation Minimal voltage criteria for LVH, may be normal variant ( Robin product ) ST \T\ T wave abnormality, consider lateral ischemia Abnormal ECG No previous ECGs available Confirmed by LUKAS PHELPS MD ([id number]) on 01/04/2021 8:09:00 AM Electronically Signed By: LUKAS PHELPS MD 01/04/21 0809 PATIENT NAME: GLORIA ADHIKARI Electrocardiogram DATE OF : 48 PHYSICIAN: LUKAS PHELPS MD REPORT #: [id number] REPORT IS CONFIDENTIAL AND NOT TO BE RELEASED WITHOUT AUTHORIZATION
[2021-01-05] MEDS ORDERED: ACETAMINOPHEN500 MG PO (07:41)
[2021-01-05] MEDS ORDERED: METOPROLOL TART25 MG PO (10:23)
--- NOTE | 2021-01-05 20:28 | EKG ---
[facility] [address] [place], [place] [address] Signed Sinus tachycardia Cannot rule out Anterior infarct , age undetermined T wave abnormality, consider lateral ischemia Abnormal ECG When compared with ECG of 04-JAN-2021 02:19, T wave amplitude has decreased in Inferior leads Confirmed by LUKAS PHELPS MD ([id number]) on 01/05/2021 8:28:07 PM Electronically Signed By: LUKAS PHELPS MD 01/05/212027 PATIENT NAME: GLORIA ADHIKARI Electrocardiogram DATE OF : 48 PHYSICIAN: LUKAS PHELPS MD REPORT #: [id number] REPORT IS CONFIDENTIAL AND NOT TO BE RELEASED WITHOUT AUTHORIZATION
[2021-01-12] MEDS ORDERED: CLOPIDOGREL75 MG PO (13:56)
[2021-01-12] MEDS ORDERED: METOPROLOL SUC200 MG PO (13:57)
[2021-01-12] MEDS ORDERED: TORSEMIDE5 MG PO (13:57)
[2021-01-12] MEDS ORDERED: LISINOPRIL2.5 MG PO (13:58)
[2021-01-12] MEDS ORDERED: BUDESONIDE0.5 MG/2 M INH (13:58)
[2021-01-12] MEDS ORDERED: IPRATROPIU0.2 MG/1 M INH (14:01)
== END 2021-01-12 15:10 | disposition home or self-care (01) | DRG 291 ==
LOC: ED 01:45 → MS 05:32 → CCU 05:32 → MS 01-08 14:14
PROVIDERS: ADMIT Internal Medicine; ATTEND Internal Medicine
PROC: 0BH18EZ Insertion of Endotracheal Airway into Trachea, Via Natural or Artificial Opening Endoscopic (ICD-10-PCS; principal; 2021-01-04)
PROC: 5A1935Z Respiratory Ventilation, Less than 24 Consecutive Hours (ICD-10-PCS; 2021-01-04)
DX: I11.0 Hypertensive heart disease with heart failure (principal); I50.23 Acute on chronic systolic (congestive) heart failure; J96.21 Acute and chronic respiratory failure with hypoxia; I47.1 Supraventricular tachycardia; Z20.822 Contact with and (suspected) exposure to COVID-19; J43.9 Emphysema, unspecified; R82.71 Bacteriuria; R33.9 Retention of urine, unspecified; B96.1 Klebsiella pneumoniae [K. pneumoniae] as the cause of diseases classified elsewhere; Z86.16 Personal history of COVID-19; I25.10 Atherosclerotic heart disease of native coronary artery without angina pectoris; I25.2 Old myocardial infarction; Z87.891 Personal history of nicotine dependence; Z88.2 Allergy status to sulfonamides; Z88.1 Allergy status to other antibiotic agents; Z88.5 Allergy status to narcotic agent; Z88.8 Allergy status to other drugs, medicaments and biological substances; Z99.81 Dependence on supplemental oxygen; Z79.899 Other long term (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 therapy; Z90.49 Acquired absence of other specified parts of digestive tract; Z90.710 Acquired absence of both cervix and uterus; Z98.890 Other specified postprocedural states
CPT/HCPCS: 31500; 31720; 36600; 51702; 70450; 71045; 71260; 74177; 80048; 80053; 81001; 82803; 83605; 83735; 83880; 84484; 85025; 85379; 87040; 87070; 87088; 87186; 87205; 93005; 93010; 93306; 94002; 94640; 94660; 94760; 97110; 97116; 97163; 97165; 97530; 99285-25; C9113; C9803; J0330; J0456; J0696; J1650; J1940; J2060; J2270; J2405; J2704; J2920; J2930; J3010; J3475; J3480; J7040; J7060; Q9967; U0003

== ENCOUNTER 2021-01-27 21:26 | Observation (INO) | payer MEDICARE ==
[~2021-01-27] VITALS: Ht 149.9 cm; Wt 43.0 kg
[~2021-01-27 21:26] MED LIST changes: +BUDESONIDE0.5 MG/2 M INH; +IPRATROPIU0.2 MG/1 M INH; +LISINOPRIL2.5 MG PO; +METOPROLOL SUC200 MG PO; +TORSEMIDE5 MG PO
--- OUTSIDE RECORDS SUMMARY | 2021-01-27 21:32 | XMS ---
PreManage Notification: GLORIA ADHIKARI Security [employer] Blasting Events No recent Security Events currently on file CRITERIA MET - [facility] - 2 Visits in 30 Days - 6 ED Visits in 6 Months - [facility] - 3 Facilities in 90 Days CARE PROVIDERS AYDIN MARTINEZ Physician 10/23/2019-Current PHONE: [phone] Matt has no Care Guidelines for this patient. [place] VISIT COUNT (12 MO.) 3 [id number] TOTAL 8 NOTE: Visits indicate total known visits. ED/UCC VISIT TRACKING (12 MO.) 01/27/2021 21:26 [facility] [place] TYPE: Emergency COMPLAINT: - UNRESPONSIVE 2021 01:45 [facility] [place] TYPE: Emergency COMPLAINT: - SHORTNESS OF BREATH 12/07/2020 15:29 [facility] [place] TYPE: Emergency DIAGNOSES: - ABD PAIN - Other complications of gastrostomy 11/25/2020 23:45 Saulo SmithKimberli CRUZ TYPE: Emergency COMPLAINT: - Chest Pain_[place] 11/25/2020 21:46 [facility] [place] TYPE: Emergency DIAGNOSES: - ST elevation (STEMI) myocardial infarction of unspecified site - COVID-19 - Chronic obstructive pulmonary disease, unspecified - +COVID SOB 11/12/2020 20:30 [facility] [place] TYPE: Emergency DIAGNOSES: - SOB - Other specified abnormalities of plasma proteins - Retention of urine, unspecified - Chronic obstructive pulmonary disease with (acute) exacerbation - COVID-19 - Heart failure, unspecified 10/14/2020 21:11 [facility] [place] TYPE: Emergency COMPLAINT: - ABDOMINAL PAIN 10/12/2020 19:54 [facility] [place] TYPE: Emergency COMPLAINT: - GLF - LOC INPATIENT VISIT TRACKING (12 MO.) 2021 05:32 [facility] [place] TYPE: Medical Surgical COMPLAINT: - ACUTE RESPIRATORY FAILURE DIAGNOSES: - Personal history of nicotine dependence - Personal history of nicotine dependence - Supraventricular tachycardia - Emphysema, unspecified - Acute on chronic systolic (congestive) heart failure - Emphysema, unspecified - Other detention (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 therapy - Allergy status to other drugs, medicaments and biological substances - Supraventricular tachycardia - Allergy status to sulfonamides - Acquired absence of other specified parts of digestive tract - Acquired absence of both cervix and uterus - Other specified postprocedural states - Atherosclerotic heart disease of samish coronary artery without angina pectoris - Hypertensive heart disease with heart failure - Klebsiella pneumoniae [K. pneumoniae] as the cause of diseases classified elsewhere - Acquired absence of other specified parts of digestive tract - Allergy status to narcotic agent - Other specified postprocedural states - Acute on chronic systolic (congestive) heart failure - Dependence on supplemental oxygen - Allergy status to other antibiotic agents - Acute and chronic respiratory failure with hypoxia - Bacteriuria - Retention of urine, unspecified - Other terminal carman (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 therapy - Klebsiella pneumoniae [K. pneumoniae] as the cause of diseases classified elsewhere - Atherosclerotic heart disease of samish coronary artery without angina pectoris - Old myocardial infarction - Allergy status to other antibiotic agents - Old myocardial infarction - Retention of urine, unspecified - Dependence on supplemental oxygen - Acquired absence of both cervix and uterus - Allergy status to other drugs, medicaments and biological substances - Allergy status to narcotic agent - Acute and chronic respiratory failure with hypoxia - Bacteriuria - Allergy status to sulfonamides 11/25/2020 23:45 [place] [place]: Medical Surgical COMPLAINT: - STEMI, COVID 19_[place] DIAGNOSES: 0. COVID-19 0. Non-ST elevation (NSTEMI) [...] Hyperlipidemia, unspecified 18. Atherosclerotic heart disease of samish coronary artery without angina pectoris 19. Presence of aortocoronary bypass graft 20. CONTACT W/AND (SUSP) EXPOS COVID-19 21. nursing home (current) use of antithrombotics/antiplatelets 22. 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 Other terminal carman (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 therapy 10/16/2020 15:20 [facility] [...] - Other specified postprocedural states - Other detention (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 therapy - Anxiety disorder, unspecified - Allergy status to other drugs, medicaments and biological substances - Old myocardial infarction - Bronchiectasis, uncomplicated - Old myocardial infarction - Allergy status to other antibiotic agents - Other detention (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 therapy - Allergy status to [...] (primary) hypertension - Atherosclerotic heart disease of samish coronary artery without angina pectoris - Orthostatic hypotension - Diarrhea, unspecified - Panlobular emphysema - Hyperlipidemia, unspecified - Syncope and collapse - Allergy status to other antibiotic agents - Chronic respiratory failure with hypoxia [email or web address]
--- NOTE | 2021-01-28 02:14 | NUR ---
PT ARRIVED TO ROOM 128 @ 0022 VIA STRETCHER, PT MOVED TO BED VIA DRAW SHEET. ARRIVED W/ #7.[address], 20CM AT TEETH. VENT SETTINGS: VC-AC, VT 360, PEEP 5, FIO2 80%. PIP 17, ETCO2 43. PT OPENED EYES AND FOLLOWED COMMANDS, KETAMINE DRIP TURNED OFF PER MD. OG IN PLACE TO SUCTION. LUNGS CLEAR. HR REGULAR. BOWEL TONES ACTIVE. SKIN GROSSLY INTACT, REDDENED AREA NOTED TO COCCYX, BLANCHABLE. IV SITES X3 PATENT AND INTACT. COATES IN PLACE DRAINING CLEAR YELLOW URINE. NO RESTRAINTS IN PLACE, PT IS NOT REACHING FOR TUBE. R.T. PERFORMING SBT PT IS CALM AND ABLE TO FOLLOW DIRECTIONS. AT 0048 PT WAS EXTUBATED TO BIPAP 15/8 @ 40%. BLOOD PRESSURES SOFT, SBP 70-80'S, MD AWARE. ORDER RECEIVED FOR 250ML NS BOLUS, GIVEN. ABG DRAWN AND SENT TO LAB, AWARE OF RESULTS, WILL CONTINUE BIPAP. SPO2 88%, FIO2 INCREASED TO 55%. OG REMOVED DURING EXTUBATION WELL. PT ORIENTED, BUT SLOW TO RESPOND. APPEARS COMFORTABLE.
--- NOTE | 2021-01-28 03:07 | NUR ---
PT REPOSITIONED ONTO LEFT SIDE WITH PILLOW SUPPORT. BIPAP REMAINS IN PLACE, FIO2 TITRATED TO 45% FOR SPO2 OF 100%. UO 20ML FOR LAST HOUR.
--- NOTE | 2021-01-28 03:36 | NUR ---
FIO2 INCREASED TO 55% FOR SPO2 88%.
--- NOTE | 2021-01-28 04:30 | NUR ---
ASSESSMENT COMPLETED. PT WAKES EASILY TO VOICE. DENIES PAIN, NAUSEA, OR SOB. LUNGS CLEAR/DIM, BIPAP 15/8, FIO2 TITRATED TO 45%. HR SINUS RHYTHM WITH PAC's. BOWEL TONES ACTIVE. COATES PATENT, CLEAR YELLOW URINE. IV SITES REMAIN SALINE LOCKED. PT REPORTS DRY MOUTH, ORAL CARE PROVIDED, PT PLACED ON 4L NC FOR THIS AND THEN BACK ON TO BIPAP. PT ORIENTED EXCEPT FOR EVENT, ORIENTED HER TO SITUATION LEADING UP TO INTUBATION AND HOSPITALIZATION. PT DENIES FURTHER NEEDS, CALL LIGHT WITHIN REACH.
--- NOTE | 2021-01-28 05:25 | NUR ---
DR. NYE MADE AWARE OF PT'S URINE OUTPUT TRENDING DOWN. UPDATED HIM ABOUT BP TRENDS AND THAT PT IS ORIENTED. NO NEW ORDERS AT THIS TIME.
--- NOTE | 2021-01-28 05:36 | NUR ---
TITRATED FIO2 TO 40% FOR SPO2 OF 99%. PT REPOSITIONED ONTO RIGHT SIDE WITH PILLOW SUPPORT.
--- NOTE | 2021-01-28 08:02 | NUR ---
REPORT REC'D FROM MATERIAL CONTROL ANALYST. PATIENT RESTING ON BIPAP AT THIS TIME WITH SETTINGS OF 15/8 AND 40%. RT HAS BEEN IN AND GAVE NEB TX. HR IN THE 80s, SINUS RHYTHM. LAST BP 86/47 (58). PATIENT APPEARS COMFORTABLE. FULL ASSESSMENT TO BE COMPLETED. COATES DRAINING MINIMAL YELLOW URINE.
--- NOTE | 2021-01-28 08:25 | NUR ---
PATIENT TAKEN OFF BIPAP AND PLACED ON NC AT 4L. PATIENT NOT MAINTAINING SP02 AFTER ABOUT 5-10 MINUTES ON THIS, AND OXYGEN INCREASED TO 5L. PT STILL NOW MAINTAINING >90% SO BIPAP BACK ON. PATIENT ABLE TO TAKE A DRINK OF WATER AND TAKE A PILL BY MOUTH W/O DIFFICULTY. PT STATES SHE HAS BEEN DOING REALLY WELL AT HOME, AND EVEN GAINED 4 LBs. PT REPORTS THAT JUST YESTERDAY SHE HAD HER COATES D/C WITH DR. VANESSA. PT LOOKING FOR HER PERSONAL BELONGINGS LIKE HER PUSE AND HER GLASSES, WHICH DO NOT SEEM OT BE IN ROOM. WILL CHECK WITH FAMILY TODAY.
--- NOTE | 2021-01-28 09:56 | NUR ---
MED REC COMPLETED BY PHARMACY
--- NOTE | 2021-01-28 10:26 | NUR ---
PATIENT SWITCHED FROM BIPAP TO 5L NC PER PATIENT REQUEST. RN NOTIFIED.
--- NOTE | 2021-01-28 11:26 | NUR ---
DR. NYE IN ROOM AT THIS TIME. PLAN OF CARE BEING DISCUSSED. HUMIDITY ADDED TO OXYGEN. PT STATES SHE IS FEELING BETTER OVERALL. CONTINUE TO MONITOR.
--- NOTE | 2021-01-28 11:30 | NUR ---
Spoke with Cielo who admits frequently with her chronic condition. Pt stating she is feeling better and ready to go home. Dr. Lemus in the room and encouraged pt to stay as she is not ready for dc yet. Pt cont to live alone with her son next door. Son and family assist pt with any needs. Pt has walker, wc, commod, shower chair, and Trilogy noninvasive vent at home as well as 02. She denies needs and plans on dc to home whenever Dr. Lemus will release her.
--- NOTE | 2021-01-28 12:23 | NUR ---
PATIENT USES CALL LIGHT AND STATES, "I THINK I'M GOING TO VOMIT!" HR NOTED TO BE TRANSIENTLY IN THE 60s. COLD WASH CLOTH PLACED TO BACK OF NECK IMMEDIATELY AND PATIENT SAT UP, AND GIVEN AN EMESIS BAG. PT DID NOT VOMIT, AND THE SENSATION LEFT ALMOST QUICKLY IT CAME ON. PT THEN HAD SOME PRODUCTION TO HER SPUTUM WHICH WAS SLIGHTLY BLOODY. PT DENIED DESIRE FOR NAUSEA MEDICATION. IV LASIX AND IV LOPRESSOR GIVEN. PT NOW SITTIGN UP AND READY TO EAT HER LUNCH.
--- NOTE | 2021-01-28 14:45 | NUR ---
THIS REPRODUCTION MACHINE LOADER IN ROOM TO ASSIT RN IN HELPING PATIENT STAND AND STRETCH. UPON MOVING, PATIENT REQUESTED BSC FOR URGENT BM. BSC PROVIDED, PATIENT WAS INCONTINENT OF SMALL AMOUNT OF BM ONTO FLOOR, PATIENT CLEANED, LINENS CHANGED. PATIENT BACK TO BED. IV IN RIGHT HAND WAS FOUND TO BE LEAKING. RN IN TO ASSESS. CALL LIGHT IN REACH
--- NOTE | 2021-01-28 16:05 | NUR ---
PATIENT RESTING AT THIS TIME. ASSESSMENT UNCHANGED FROM EARLIER. PT REMAINS ON NASAL CANNULA AT 5 L. PT STATES SHE IS FEELING GOOD OVERALL, AND DENIES DIFFICULTY BREATHING. WILL CONTINUE TO MONITOR.
--- NOTE | 2021-01-28 17:13 | NUR ---
PATIENT'S DAUGHTER ARRIVES TO VISIT WITH HER DAUGHTER AND IS NOW IN ROOM. SHE BRINGS PATIENT HER CELL PHONE, PRODUCT SAFETY TECHNICAL ASSISTANT, GLASSES, AND HER WATCH. PATIENT NOW SITTING UP IN BED EATING DINNER. COATES REMAINS INTACT DRAINING CLEAR YELLOW URINE. PT AND DAUGHTER DISCUSSING EVENTS OF THE PREVIOUS EVENING AGAIN.
--- NOTE | 2021-01-28 18:41 | NUR ---
LAB IN TO DRAW VBG. PATIENT TOLERATED WELL.
--- NOTE | 2021-01-28 20:15 | NUR ---
PATIENT PROVIDED WITH SCHEDULED EVENING MEDS. VS STABLE. TOLERATING 3L NC. RECENTLY RECIEVED NEB TREATMENT. LUNG SOUNDS ARE CLEAR AND DIM IN THE UPPER LOBES, AND FINE CRACKLES IN THE SCOTT BASES. PATIENT HAS A PRODUCTIVE LOOSE COUGH. ASSISTED PATIENT TO CLEAN DENTURES AND DO ORAL CARE. PATIENT REPORTS HER MOUTH IS SORE, NO SIGN OF INJURY OR THRUSH NOTED ON INSPECTION. COATES CARE DONE, PATIENT HAS GOOD OUTPUT. ABD IS SOFT AND NONTENDER. PATIENT FEELS THAT SHE MIGHT NEED TO HAVE ANOTHER BM BUT NO GI UPSET. PLAN TO WEAR BIPAP WHEN SLEEPING. NO OTHER NEEDS AT THIS TIME. CALL LIGHT IN REACH.
--- NOTE | 2021-01-28 20:34 | NUR ---
DISCUSSED PATIENT'S CONCERNS ABOUT HER MOUTH BEING SORE AND REQUESTED MAGIC MOUTHWASH WITH MD PATTI TO PUT IN ORDERS.
--- NOTE | 2021-01-28 21:46 | NUR ---
PATIENT PROVIDED WITH APPLE JUICE PER REQUEST. SITTING UP IN BED. STILL TOLERATING 3L NC.
--- NOTE | 2021-01-28 22:15 | NUR ---
PATIENT UP TO THE BSC TO HAVE BM. MOVES EASILY AND DOES NOT APPEAR SOB WITH ACTIVITY. TOLERATES 3L NC. PATIENT UNABLE TO HAVE BM AT THIS TIME. ENCOURAGED HER TO NOT STRESS ABOUT THIS BECAUSE SHE HAD A LOOSE STOOL TODAY. PATIENT NOT READY FOR CPAP AT THIS TIME. CALL LIGHT IN REACH.
--- NOTE | 2021-01-29 00:30 | NUR ---
PATIENT RESTING IN BED WATCHING TV. TOLERATING 3L NC. DENIED ANY CONCERNS. COATES DRAINING FREELY, GOOD URINE OUTPUT. LUNG SOUNDS ARE CLEAR AND DIM IN RUL, LLU. FINE CRACKLES IN LLL & RLL. VS STABLE.
--- NOTE | 2021-01-29 02:05 | NUR ---
PROVIDED PATIENT WITH SCHEDULED MEDS. PATIENT WAS SLEEPING, WOKE EASILY TO VOICE. VS STABLE. TOLERATING 3L NC. PATIENT IS IN GOOD SPIRITS AND TALKATIVE. NO NEEDS AT THIS TIME. CALL LIGHT IN REACH.
--- NOTE | 2021-01-29 05:00 | NUR ---
PATIENT RESTING IN BED WATCHING TV. TOLERATING 3L NC. VS STABLE. ADEQUATE URINE OUTPUT. ASSISTED PATIENT TO REPOSITION IN BED. LAB IN FOR MORNING DRAW.
--- NOTE | 2021-01-29 07:00 | NUR ---
RECEIVED REPORT AT 0700. PT IN ROOM RESTING.
--- NOTE | 2021-01-29 08:00 | NUR ---
V/S WDL OVERALL SO FAR, UPPER LOBES CLEAR BUT DIMINISHED, LOWER LOBES TIGHT. PT REMAINS ON 3.5L O2 NC. PT DENIES SOB AT THIS TIME. ABD SOUNDS PRESENT, NO PERIPH. EDEMA NOTED. PT OVERALL HAS NO NEW COMPLAINTS. WILL CONTINUE TO MONITOR.
--- NOTE | 2021-01-29 10:00 | NUR ---
PT IS AWAKE IN ROOM. V/S WDL. PT OVERALL IS DOING WELL TRANSFERING TO BSC. OVERALL NO NEW CONCERNS HAVE BEEN NOTED.
--- NOTE | 2021-01-29 12:00 | NUR ---
PT REMAINS ON 3.5L O2 NC. V/S WDL OVERALL. LOBES ARE TIGHT WITH SOME COARSNESS IN THE BOTTOM LOBES. ABD SOUNDS PRESENT, NO PERIPH. EDEMA NOTED. COATES D/C AT THIS TIME. PT DENIES PAIN AND SOB WHEN STILL. PT DOES STILL HAVE ACTIVITY INTOLERALNCE PRESENT. PT TO TRANSFER TO ND TO ROOM 115. REPORT CALLED. ALEKSANDAR HERNANDEZ TO TAKE PT AT 1300.
--- NOTE | 2021-01-29 12:52 | NUR ---
PT ARRIVED TO FLOOR FROM CCU. PT ON 3.5L NC. VITALS TAKEN AND STABLE. PT ASSISTED TO CHAIR FOR LUNCH. TOYA PAIN/SOB. CALL LIGHT IN REACH. LANCES NEEDS.
--- NOTE | 2021-01-29 13:26 | NUR ---
REPORT RECIEVED FROM RN IN CCU. PT. IS ALERT AND ORIENTED. DENIES PAIN OR SOB. LUNGS DIM. THROUGHOUT. ON 3.5L NC AND O2 SAT IS 94%. IV SITE WNL AND FLUSHES. POOR APPETITE AND EATEN APPROX. 25% LUNCH. DISCUSSED POC, MEDS. LEF RESTING WITH CALL LIGHT IN REACH.
--- NOTE | 2021-01-29 14:00 | NUR ---
Spoke with Cielo and assisted her to partially complete a POLST form DNR/DNI. Pt no longer wants to be intubated when she is found down. We completed the front section and I left at the bedside as she wants to discuss with her kids.
--- NOTE | 2021-01-29 14:37 | NUR ---
PT. USED CALL LIGHT APPROPRIATELY FOR ASSISTANCE FROM BEDSIDE COMMODE. AMBULATED WITH SBA TO BED. TOLERATED WELL
--- NOTE | 2021-01-29 15:30 | NUR ---
Report recieved from danna peters, pt resting in bed, currently in 3.5L nc, on tele sinus, denies pain or shortness of breath assessment done.
--- NOTE | 2021-01-29 17:30 | NUR ---
rn in to check on patient, patient finishing dinner, denies any needs at the moment.
--- NOTE | 2021-01-29 19:53 | NUR ---
BEDSIDE REPORT FORM RICKY HUERTAS, PT HAD COATES OUT AROUND NOON, STILL NO VOID, PT ASSISTED UP TO BSC.
--- NOTE | 2021-01-29 20:31 | NUR ---
pt bladder scanned for 404ml at this time, scanned x3 for accuracy. pt alert and oriented.
--- NOTE | 2021-01-29 20:54 | NUR ---
PT SITTING UP IN BED TALKING ON HER CELL PHONE WITH HER BROTHER ABOUT HER PLAN TO FILL OUT DNR/DNI FORM. NO DISTRESS NOTED. NOTIFIED AT NURSES STATION AT 2030 OF PT RETENSION, HE SAID TO ATTEMPT TO VOID IN AN HOUR THEN IF NEEDED STRAIGHT CATH ONCE, THEN IF RETENTION DOES NOT RESOLVE PLACE INDWELLING COATES AND LEAVE.
--- NOTE | 2021-01-29 21:13 | NUR ---
PT UP TO BEDSIDE COMMODE VOIDED 100ML CLEAR YELLOW URINE. SHE REQUESTED TO BE PLACED ON BIPAP MACHINE SHE FEELS A LITTLE SHORT OF BREATH, SHE HAS BEEN TALKING TO FAMILY ABOUT HER CODE STATUS PLANS. PT VERBALIZED NO OTHER NEEDS AT THIS TIME.
--- NOTE | 2021-01-29 21:17 | EKG ---
[facility] [address] [facility] [place] [address] Signed Atrial fibrillation with rapid ventricular response Left axis deviation Nonspecific intraventricular conduction delay ST \T\ T wave abnormality, consider lateral ischemia Abnormal ECG When compared with ECG of 05-JAN-2021 06:35, Atrial fibrillation has replaced Sinus rhythm T wave amplitude has increased in Inferior leads Confirmed by DAQUAN AMBROSIO DO ([id number]) on 01/29/2021 9:16:48 PM Electronically Signed By: DAQUAN AMBROSIO DO 01/29/21 2117 PATIENT NAME: GLORIA ADHKIARI Electrocardiogram DATE OF : 48 PHYSICIAN: DAQUAN AMBROSIO DO REPORT #: [id number] REPORT IS CONFIDENTIAL AND NOT TO BE RELEASED WITHOUT AUTHORIZATION
--- NOTE | 2021-01-29 23:48 | NUR ---
PT BLADDER SCANNED FOR 469ML, DISCUSSED WITH PT TO STRAIGHT CATH PER INSTRUCTIONS, PT UP TO BSC UNABLE TO VOID. STRAIGHT CATHED FOR 400ML CLEAR YELLOW URINE. PT TOLERATED WELL.
--- NOTE | 2021-01-30 01:38 | NUR ---
PT IS AWAKE IN HER ROOM, SITTING UP IN HER BED. SHE VERBALIZED SHE IS TOO STRESSED TO SLEEP, DUE TO HER PLAN TO BECOME DNR/DNI AND HOW HER CHILDREN ARE GOING TO FEEL, AND SHE SAID "I KNOW THEY ARE GOING TO COME IN HERE AND LOOK AT ME WITH THOSE SAD EYES" SAT IN ROOM WITH PATIENT TO VISIT. PT HAS NO REQUESTS.
--- NOTE | 2021-01-30 03:12 | NUR ---
PT ALERT SITTING UP IN BED WATCHING TV, SHE SAID, "I WONT GET ANY SLEEP TONIGHT, JUST TOO STRESSED". SAT AND WATCHED TV WITH PT FOR 20MIN AND VISITED WITH PT ABOUT HER EARLY YEARS IN [place].
--- NOTE | 2021-01-30 05:49 | NUR ---
PT UP TO BEDSIDE COMMODE, SHE WAS ABLE TO VOID 125ML. PT GIVEN COFFEE THIS IS HER NORMAL ROUTINE IN THE AM. WILL MONITOR FOR MORE URINE OUT OR BLADDER SCAN.
--- NOTE | 2021-01-30 06:50 | NUR ---
pt voided 125ml this am, pt bladder scanned for 597ml at this time, she verbalized not wanting to have goins catheter placed, she wants to try to void on commode at this time. education provided on need for catheter if she is unable to void, she said she understands.
--- NOTE | 2021-01-30 07:10 | NUR ---
report recieved from aerospace stress engineer RN, pt on 3l NC, having issues with voiding straight cath x1 overnight patient voided 100cc bladder scaned post void showed [address] jamie jimenez goins if >400.
--- NOTE | 2021-01-30 07:27 | NUR ---
16Fr COATES INSERTED WITHOUT ISSUE FOR URINARY RETENTION. 550 MLS OF LIGHT YELLOW URINE OUT. PRIMARY RN UPDATED. BREAKFAST CALLED DOWN. CALL LIGHT WITHIN REACH.
--- NOTE | 2021-01-30 08:18 | NUR ---
rn in room to do morning assessment and administer morning medications, patient in bed eating breakfast complaining of mouth pain while eating, magic mouth wash provided oral care done dentures washed, no other needs at the moment
[2021-01-30] MEDS ORDERED: TAMSULOSIN HCL0.4 MG PO (10:21)
[2021-01-30] MEDS ORDERED: DIGITEK125 MCG PO (10:22)
--- NOTE | 2021-01-30 10:27 | NUR ---
RN in room to round on patient, mouth wash seemed to work,plan for disharge to today.
--- NOTE | 2021-01-30 10:30 | NUR ---
Spoke with Cielo as she is finishing discussion with Dr. Elizabeth. They are reviewing POSLT and she signed and signed. Pt will dc to home today. Denies needs. She then asks I call her daughter and ask her to give her a ride home. She also asks I speak with her daughter about the polst as she did not speak with her kids last night. Called Linda from my office and asked if she could transport mom and she states they have already set up a ride with her brother and he has the 02 in his car. I updated, I think her mom just wanted me to discuss the POSLT form. She states she and her brother, as well as her cousin Carlos Eduardo, visited her mom last night and the POLST was discussed. She states its really hard, but they all agreed. They still plan on calling the ambulance, but understand they will not intubate her. Daughter states she and brother are noticing patient has more confusion. She thanked me for the call. I updated Cielo I spoke with daughter. Son will pick her up at 12:30.
--- NOTE | 2021-01-30 11:15 | NUR ---
RN IN ROOM TO DO EDUCATION ON COATES CATHETER CARE, INFECTION CONTROL EDUCATION DONE, 2X A DAY COATES CARES, LEG BAG EDUCATION PROVIDED
--- NOTE | 2021-01-30 12:09 | NUR ---
PT ALERT, ORIENTED AND EXCITED FOR DC LATER TODAY. THANKED ME FOR VISITING, RT RENE IN FOR BREATHING TREATMENT. GAVE BLESSING, WILL FOLLOW
[2021-01-30] MEDS ORDERED: AMOXICILLIN875 MG PO (13:16)
== END 2021-01-30 13:27 | disposition home or self-care (01) ==
LOC: ED 21:26 → CCU 21:27 → MS 01-29 12:36
PROVIDERS: ADMIT Internal Medicine; ATTEND Internal Medicine
DX: J96.22 Acute and chronic respiratory failure with hypercapnia (principal); J96.21 Acute and chronic respiratory failure with hypoxia; I47.1 Supraventricular tachycardia; I48.0 Paroxysmal atrial fibrillation; R33.9 Retention of urine, unspecified; I11.0 Hypertensive heart disease with heart failure; I50.22 Chronic systolic (congestive) heart failure; J44.9 Chronic obstructive pulmonary disease, unspecified; Z88.1 Allergy status to other antibiotic agents; Z88.5 Allergy status to narcotic agent; Z88.2 Allergy status to sulfonamides; Z88.8 Allergy status to other drugs, medicaments and biological substances; Z20.822 Contact with and (suspected) exposure to COVID-19
CPT/HCPCS: 36600; 51702; 71045; 80053; 80162; 81001; 82803; 83605; 83735; 83880; 84484; 85025; 85610; 85730; 87040; 87088; 93005; 93010; 94002; 94003; 94640; 94660; 94760; 99285-25; C9803; J1160; J1650; J1940; J2704; J3010; J7030; J7060; U0003

== ENCOUNTER 2021-03-12 05:15 | Inpatient (IN) | payer MEDICARE ==
[~2021-03-12] VITALS: Ht 149.9 cm; Wt 47.0 kg
[~2021-03-12 05:15] MED LIST changes: +AMOXICILLIN875 MG PO; +DIGITEK125 MCG PO; +DIGOXIN125 MCG PO; +TAMSULOSIN HCL0.4 MG PO
--- OUTSIDE RECORDS SUMMARY | 2021-03-12 05:18 | XMS ---
PreManage Notification: GLORIA ADHIKARI Security Card Lacer [employer] Events No recent Security Events currently on file CRITERIA MET - [facility] - 2 Visits in 30 Days - 6 ED Visits in 6 Months CARE PROVIDERS MAIRA NYE Internal Medicine 02/18/2021-Current PHONE: [phone] Matt has no Care Guidelines for this patient. Care History Medical/Surgical 02/18/2021 [facility] - Patient is currently established with [facility]. If patient is seen in the ED during business hours. Please contact CHWs at [facility]. Care Recommendation: If this patient has had 5 or more Emergency Department visits in the last 12 months.\T\nbsp; Patient will require education on the scope and purpose of the ED as an acute care provider not a Primary Care Provider and should not be utilized for chronic conditions.\T\nbsp; These are guidelines and the provider should exercise clinical judgment when providing care. E.D. VISIT COUNT (12 MO.) 3 [facility] 1 [facility] 6 [facility]. TOTAL 10 NOTE: Visits indicate total known visits. ED/UCC VISIT TRACKING (12 MO.) 03/12/2021 05:16 [facility] [place] TYPE: Emergency COMPLAINT: - TROUBLE BREATHING 02/16/2021 21:42 [facility] [place] TYPE: Emergency COMPLAINT: - DIFFICULTY BREATHING 01/27/2021 21:[address] [facility] TYPE: Emergency COMPLAINT: - UNRESPONSIVE 2021 01:[address] [facility] TYPE: Emergency COMPLAINT: - SHORTNESS OF BREATH 12/07/2020 15:29 [facility] Emergency DIAGNOSES: - ABD PAIN - Other complications of gastrostomy 11/25/2020 23:45 [facility] TYPE: Emergency COMPLAINT: - Chest [facility] 11/25/2020 21:46 [facility] [place] TYPE: Emergency DIAGNOSES: - ST elevation (STEMI) myocardial infarction of unspecified site - COVID-19 - Chronic obstructive pulmonary disease, unspecified - +COVID SOB 11/12/2020 20:30 [facility] [place] TYPE: Emergency DIAGNOSES: - SOB - Other specified abnormalities of plasma proteins - Retention of urine, unspecified - Chronic obstructive pulmonary disease with (acute) exacerbation - COVID-19 - Heart failure, unspecified 10/14/2020 21:11 [facility] [place] TYPE: Emergency COMPLAINT: - ABDOMINAL PAIN 10/12/2020 19:54 [facility] [place] TYPE: Emergency COMPLAINT: - GLF - LOC INPATIENT VISIT TRACKING (12 MO.) 02/16/2021 21:[address] [facility] [place] TYPE: Observation COMPLAINT: - RESP. FAILURE DIAGNOSES: - Chronic obstructive pulmonary disease, unspecified - Acute and chronic respiratory failure with hypercapnia - Personal history of nicotine dependence - Retention of urine, unspecified - Acute ischemic heart disease, unspecified - Unspecified systolic (congestive) heart failure - Acute and chronic respiratory failure with hypoxia - Old myocardial infarction - Allergy status to narcotic agent - Allergy status to sulfonamides - Allergy status to other antibiotic agents - Allergy status to other drugs, medicaments and biological substances - senior living (current) use of anticoagulants - Paroxysmal atrial fibrillation 01/27/2021 21:27 [facility] [place] TYPE: Observation COMPLAINT: - RESP. FAILURE DIAGNOSES: - Acute and chronic respiratory failure with hypoxia - Supraventricular tachycardia - Hypertensive heart disease with heart failure - Chronic systolic (congestive) heart failure - Acute and chronic respiratory failure with hypercapnia - Chronic obstructive pulmonary disease, unspecified - Allergy status to sulfonamides - Allergy status to narcotic agent - Retention of urine, unspecified - Allergy status to other antibiotic agents - Allergy status to other drugs, medicaments and biological substances - Paroxysmal atrial fibrillation 2021 05:32 [facility] [place] TYPE: Medical Surgical COMPLAINT: - ACUTE RESPIRATORY FAILURE DIAGNOSES: - Personal history of nicotine dependence - Personal history of nicotine dependence - Supraventricular tachycardia - Emphysema, unspecified - Acute on chronic systolic (congestive) heart failure - Emphysema, unspecified - Other watcher [employer] (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 therapy - Allergy status to other drugs, medicaments and biological substances - Supraventricular tachycardia - Allergy status to sulfonamides - Acquired absence of other specified parts of digestive tract - Acquired absence of both cervix and uterus - Other specified postprocedural states - Atherosclerotic heart disease of [place] coronary artery without angina pectoris - Hypertensive [...] - Retention of urine, unspecified - Other watcher [employer] long goods (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 therapy - Klebsiella pneumoniae [K. pneumoniae] as the cause of diseases classified elsewhere - Atherosclerotic heart disease of [place] coronary artery without angina pectoris - Old [...] - Allergy status to sulfonamides 11/25/2020 23:45 [facility] [place] TYPE: Medical Surgical COMPLAINT: - STEMI, COVID [facility] DIAGNOSES: 0. COVID-19 0. Non-ST elevation (NSTEMI) myocardial infarction 1. Non-ST elevation (NSTEMI) myocardial infarction 2. COVID-19 3. PNEUMONIA D/T CORONAVIRUS DIS 2019 4. Acute respiratory failure with hypoxia 5. [...] Hyperlipidemia, unspecified 18. Atherosclerotic heart disease of [place] coronary artery without angina pectoris 19. Presence of aortocoronary bypass graft 20. CONTACT W/AND (SUSP) EXPOS COVID-19 21. long term care pharmacist (current) use of antithrombotics/antiplatelets 22. senior living (current) use of aspirin 23. Other watcher [employer] (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 therapy 10/16/2020 15:[address] [facility] [place] TYPE: Medical Surgical COMPLAINT: - SMALL [...] - Other specified postprocedural states - Other watcher automat long goods (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 therapy - Anxiety disorder, unspecified - Allergy status to other drugs, medicaments and biological substances - Old myocardial infarction - Bronchiectasis, uncomplicated - Old myocardial infarction - Allergy status to other antibiotic agents - Other fdc (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 therapy - Allergy status to [...] (primary) hypertension - Atherosclerotic heart disease of [place] coronary artery without angina pectoris - Orthostatic hypotension - Diarrhea, unspecified - Panlobular emphysema - Hyperlipidemia, unspecified - Syncope and collapse - Allergy status to other antibiotic agents - Chronic respiratory failure with hypoxia [email or web address]
--- NOTE | 2021-03-12 13:55 | NUR ---
NHAN BAH AT 8MCG AT THIS TIME. HR IN THE MID 40'S. MILINE TO BE INSERTED BY MYA HUERTAS. MD NYE IS AWARE.
--- NOTE | 2021-03-12 14:44 | NUR ---
RECEIVED CRITICAL LAB VALUE FOR TROPONIN FROM MAHENDRA IN THE LAB. TROPONIN NOW 72.5. MD NYE CALLED AT THIS TIME. NO NEW ORDERS RECEIVED.
--- NOTE | 2021-03-12 15:00 | NUR ---
Spoke with pt's son, Augusto. Pt is sleeping. He states everything remains the same. Pt is back and forth with DNR, cont. to not want intubation. Son lives next door and check on pt. He states pt is unable to complete any household tasks at this point. She cont. with a Trilogy, but rarely uses. He would like a cg in the home. Gave Augusto a brochure for [employer] and instructions for [facility] to hire a CG. Augusto states he is needing a break as he spends all of his time with mom attempting to make her complete her neb treatments, take her meds, or use her Trilogy. We discussed if she had a cg, this would allow him to be the son and not the cg. He states pt frequently tells him she has taken medications when she has not. Pt plans on dc to home when cleared medically.
--- NOTE | 2021-03-12 15:10 | NUR ---
Asked by Augusto, if any RT see pts in the home. He was told by a Dr. JACKELYN has PT that make home visits. Called [facility] and spoke with their RT and DME company. Both state this used to be a service they offered, but no longer. Augusto updated.
--- NOTE | 2021-03-12 16:00 | NUR ---
NOREPI. DRIP AT 8MCG. MILINE IV IN PLACE ON RIGHT ARM. ALL LOBES ARE TIGHT WITH DIMINISHED BASES. PT WAS TURNED ALSO. PT HAS REDNESS ON HER COCCYX THAT IS BLANCHABLE. PT REMAINS SINUS RUBINA. NO PERIPH. EDEMA NOTED, URINE OUTPUT WDL SO FAR. PT ALSO REMAINS SINUS RUBINA.
--- NOTE | 2021-03-12 19:49 | NUR ---
RT NOTIFIED THIS RN PT WAS PLACED ON 4L O2 NC, SPO2 MAINTAINING AT 92-95%. PT AWAKE AND ALERT IN ROOM WITH HER SON. PT PROVIDED WITH JELLO PER HER REQUEST. PT REPORTS NO FURTHER NEEDS AT THIS TIME, WILL CONTINUE PLAN OF CARE. LEVOPHED INFUSING AT 6MCG/MIN AT THIS TIME.
--- NOTE | 2021-03-12 22:50 | NUR ---
PT RESTING IN BED ON 4L O2 NC, SPO2 91%. LEVPHED STILL INFUSING AT 4MCG/MIN. PT SLEEPING AT THIS TIME, RESPIRATIONS EVEN AND UNLABORED, PT LEFT UNDISTURBED, WILL CONTINUE PLAN OF CARE AND TITRATED LEVOPHED NEEDED.
--- NOTE | 2021-03-12 23:00 | NUR ---
DR. NYE CALLED THIS RN FOR AN UPDATE. DR. NYE INFORMED ON PT VITALS, LEVOPHED DRIP RATE, AND INTAKE/OUTPUT. NEW ORDERS GIVEN TO TITRATE LEVOPHED TO MAINTAIN SBP ABOVE 100 MMHG OR MAP ABOVE 65 MMHG. WILL CONTINUE PLAN OF CARE.
--- NOTE | 2021-03-12 23:33 | NUR ---
PT LAYING IN BED SLEEPING AND AWOKE EASILY. PT ON 4L, SPO2 92%, LEVOPHED INFUSING AT 4MCG/MIN. VITALS TAKEN, PT ASSESSED (SEE CHART). PT DENIES ANY PAIN AND REPORTS NO SHORTNESS OF BREATH WHEN ASKED. WARM BLANKETS PROVIDED PER PATIENTS REQUEST. PT TITRATED DOWN TO 2MCG/MIN ON THE LEVOPHED SBP WAS ABOVE 100 MMHG. PT REPORTS NO FURTHER NEEDS AT THIS TIME WHEN ASKED AND IS NOW BACK TO SLEEP. WILL CONTINUE PLAN OF CARE. CALL LIGHT IN REACH, BED IN LOWEST POSITION.
--- NOTE | 2021-03-13 02:01 | NUR ---
PT LAYING IN BED SLEEPING ON 4L O2 NC. IV ABX COMPLETED AT THIS TIME, PT SALINE LOCKED. PT AWOKE BRIEFLY AND REPORTED NO NEEDS WHEN ASKED. PT RETURNED BACK TO SLEEP. LEVOPHED TURNED OFF AT THIS TIME FROM 2MCG/HR. PT LINE FLUSHED AND SALINE LOCKED. PT ASSISTED IN REPOSITIONING UP IN BED AT THIS TIME. PT REPORTS NO FURTHER NEEDS AND RETURNED BACK TO SLEEP, WILL CONTINUE PLAN OF CARE. CALL LIGHT IN REACH, BED IN LOWEST POSITION, SPO2 AT 90%.
--- NOTE | 2021-03-13 03:15 | NUR ---
PT LAYING IN BED SLEEPING ON 4L O2 NC, BP NOTED TO BE BELOW 100 SBP AND MAP WAS BELOW 65. PT VITALS TAKEN, BP STILL BELOW PARAMETERS, PT PLACED BACK ON 2MCG/MIN IN MIDLINE. PT AWOKE AT THIS TIME AND REPORTED NO NEEDS WHEN ASKED. PT REPOSITIONED UP ON THE BED AND WAS PLACED ON 5L O2 NC AFTERWARDS SP02 WAS NOW MAINTAINING AT 88-89% ON 4L O2. PT NOW RESTING IN BED, LEVOPHED INFUSING, CALL LIGHT IN REACH, SPO2 AT 93%, WILL CONTINUE PLAN OF CARE
--- NOTE | 2021-03-13 05:59 | NUR ---
PT LAYING IN BED ON 5L O2 NC, SPO2 91-93%. LEVOPHED INFUSING AT 2MCG/MIN TO MAINTAIN MAP ABOVE 65 OR SBP ABOVE 100. PT AWAKE AND ALERT AT THIS TIME AND REPORTS NO PAIN OR SOB. SCHEDULED MEDICATION ADMINISTERD (SEE APR). PT REPORTS NO FURTHER NEEDS AFTERWARDS, CALL LIGHT IN REACH, BED IN LOWEST PSOTION, SP2 91%, WILL CONTINUE PLAN OF CARE.
--- NOTE | 2021-03-13 08:00 | NUR ---
RT IN ROOM GIVING PT A BREATHING TX.
--- NOTE | 2021-03-13 08:32 | NUR ---
LEVOPHED DRIP ON STANDBY AT THIS TIME. PTS BLOOD PRESSURE 85-51 WITH MAP OF 63. PT ALERT AND ORIENTED IN ROOM. ON FOUR LITER VIA OXIMASK. DISCUSSED PLAN OF CARE FOR EVENING. ALL QUESTIONS ANSWERED. CALL LIGHT WITHIN REACH. WILL CONTINUE TO MONITOR.
--- NOTE | 2021-03-13 09:30 | NUR ---
DR NYE IN ROOM WITH PT. PLAN OF CARE FOR DAY ESTABLISHED. ALL QUESTIONS ANSWERED. COATES CATHETER DC'D AT THIS TIME. WELL TOLERATED BY PT. PT REMAINS ON 4 L NC. CALL LIGHT WITHIN REACH. WILL CONTINUE TO MONITOR.
--- NOTE | 2021-03-13 10:00 | NUR ---
PT NOW EATING BREAKFAST, CALL LIGHT WITHIN REACH. WILL CONTINUE TO MONITOR.
--- NOTE | 2021-03-13 10:30 | NUR ---
PT DAUGHTER AT BEDSIDE AT THIS TIME. THIS RN IN ROOM TO DISCUSS PLAN OF CARE. ALL QUESTIONS ANSWERED. PT HEART RATE INTH 110S AT REST. CALL LIGHT WITHIN REACH. WILL CONITNUE TO MONITOR.
--- NOTE | 2021-03-13 12:34 | NUR ---
PT ALERT, ORIENTED AND VISITING WITH HER DAUGHTER STAR. PT AND STAR WANTED INFO ON ADVANCE DIR., RECOMMENDED THEY VISIT WITH ALEX LEIJA. THEY BOTH AGREE AND ACKNOWLEDGED. PT HAS VERY LITTLE USE FOR AMISH, JUST WANTED TO LIVE MY LIFE THE WAY I WANT TO-AND NOW I AM PAYING THE ALEJANDRO. PT IS 71, SAID SHE HAS LIVED A GOOD LIFE, AND IS READY TO GO. PT ON O2 NC WITH COPD. PT STILL MISSES SMOKING, WANTS TO BE DNR/DNI. GAVE BLESSING, WILL FOLLOW
--- NOTE | 2021-03-13 13:01 | NUR ---
PTS WORK OF BREATHING INCREASED. PLACED BACK ON BIPAP AT THIS TIME. CALL LIGHT ANGEL JULIO. WILL CONTINUE TO CLOSELY MONITOR.
--- NOTE | 2021-03-13 14:53 | NUR ---
PT UP TO BSC TO VOID AND NOW BACK IN BED. PT ABLE TO MAINTAIN OXYGEN SATURATION ABOVE 90% ON 4 L NC WITH AMBULATION. CALL LIGHT WITHIN REACH WILL CONTINUE TO MONITOR.
[2021-03-13] MEDS ORDERED: DOXYCYCLINE MO100 MG PO (16:22)
[2021-03-13] MEDS ORDERED: MORPHINE S100 MG/5 M PO (16:22)
[2021-03-13] MEDS ORDERED: PREDNISONE20 MG PO (16:23)
--- NOTE | 2021-03-13 16:24 | NUR ---
MED REC COMPLETE
--- NOTE | 2021-03-13 17:36 | NUR ---
PT STATES SHE IS UPSET WITH THE QUALITY OF HER DINNER. TOOK OXYGEN OFF, SPO2 DECREASED TO 77%, PT PLACED ON 6 L NC AT THIS TIME. WILL CONTINUE TO MONITOR.
--- NOTE | 2021-03-13 18:17 | NUR ---
Update from Rn pt remains on a levophed gtt.
--- NOTE | 2021-03-13 19:50 | NUR ---
REPORT RECEIVED FROM FLORENTIN HUERTAS. PT IS SITTING UP IN BED TALKING WITH RT.
--- NOTE | 2021-03-13 20:00 | NUR ---
IN TO CHECK ON PT, SHE DENIES NEEDS AT THIS TIME.
--- NOTE | 2021-03-13 21:00 | NUR ---
IN TO HANG ABX AND DO ASSESSMENT. PT VERY TALKATIVE, SHOWING PICTURES OF HER FAMILY AND BECOMES SLIGHTLY SOB WITH TALKING. PT DENIES ANY PAIN AT THIS TIME, SHE TALKS A LOT ABOUT HOW ANGRY SHE IS WITH THE FOOD TODAY AND THE HOSPITALS NEW MENU. LUNGS HAVE FEW SCATTERED COARSE SOUNDS, OVERALL DIM SOUNDING. PT IS ALERT AND ORIENTED BUT FORGETFUL. CALL LIGHT IN HAND, USING APPROPRIATLEY, DENIES NEEDS AT THIS TIME AND STATES SHE WILL CALL WHEN READY TO PLACE BIPAP TO SLEEP.
--- NOTE | 2021-03-13 21:48 | NUR ---
PT ASSISTED WITH BRUSHING TEETH, THEN HELPED BACK TO BED AND BIPAP PLACED PT IS GOING TO TRY TO SLEEP NOW. CALL LIGHT IN HAND.
--- NOTE | 2021-03-14 | NUR ---
PT CALLS TO HAVE CPAP REMOVED, SHE STATES SHE CANNOT KEEP IT ON ANY LONGER. NASAL CANNULA PUT BACK ON, ASSESSMENT DONE, PT BACK TO WATCHING TV.
--- NOTE | 2021-03-14 00:50 | NUR ---
RT IN TO CHECK ON PT.
--- NOTE | 2021-03-14 01:19 | NUR ---
IV PUMP BEEPING. INFUSION COMPLETE. SL. pt UP TO BSC SBA. YELLOW URINE. BACK TO BED. SBA. WARM BLANKET PROVIDED. CALL LIGHT WITHIN REACH.
--- NOTE | 2021-03-14 03:00 | NUR ---
PT HAS BEEN RESTING WITH EYES CLOSED AND LIGHTS OFF APPROX AN HOUR, RR 24, SPO2 94% AND HR 100.
--- NOTE | 2021-03-14 04:01 | NUR ---
PT CALLS FOR WARM BLANKET.ALSO ASKS FOR A SANDWICH AND CHOCOLATE PUDDING, STATES "IM STARVING, I DIDNT EAT MUCH TODAY". WAS ABLE TO FIND A SANDWICH BOX BUT NO CHOCOLATE PUDDING.
--- NOTE | 2021-03-14 04:15 | NUR ---
RT IN TO DO NEB TX
--- NOTE | 2021-03-14 07:04 | NUR ---
PT CONTINUES TO SLEEP, HOLDING HER MENUS, RESP UNLABORED, WEARING 2L/O2.
--- NOTE | 2021-03-14 09:27 | NUR ---
DR. NYE IN ROOM AT THIS TIME TO SEE PATIENT. MEDICATIONS BROUGHT INTO ROOM FOR PATIENT. PT ATE BREAKFAST WELL W/O DIFFICULTY. PT REMAINS ON 2 L NC. HR IN THE 120s AT THIS TIME.
--- NOTE | 2021-03-14 11:43 | EKG ---
[facility] [address] [facility] [place] [id number] Signed Normal sinus rhythm Left axis deviation Nonspecific intraventricular conduction delay Minimal voltage criteria for LVH, may be normal variant ( Robin product ) T wave abnormality, consider lateral ischemia Abnormal ECG When compared with ECG of 16-FEB-2021 23:20, QRS duration has increased Criteria for Anterior infarct are no longer present Criteria for Anterolateral infarct are no longer present T wave inversion less evident in Lateral leads Confirmed by MAIRA NYE MD ([id number]) on 03/14/2021 11:43:16 AM Electronically Signed By: MAIRA NYE MD 03/14/21 1143 PATIENT NAME: GLORIA ADHIKARI Electrocardiogram DATE OF : 48 PHYSICIAN: MAIRA NYE MD REPORT #: [id number] REPORT IS CONFIDENTIAL AND NOT TO BE RELEASED WITHOUT AUTHORIZATION
--- NOTE | 2021-03-14 11:43 | EKG ---
[facility] [address] [facility] [place] [address] Signed Sinus bradycardia Possible Inferior infarct , age undetermined Anterior infarct , age undetermined T wave abnormality, consider lateral ischemia Abnormal ECG When compared with ECG of 12-MAR-2021 06:37, (Unconfirmed) QRS duration has decreased Anterior infarct is now present Nonspecific T wave abnormality now evident in Inferior leads T wave inversion more evident in Anterolateral leads Confirmed by MAIRA NYE MD ([id number]) on 03/14/2021 11:43:27 AM Electronically Signed By: MAIRA NYE MD 03/14/21 1143 PATIENT NAME: GLORIA ADHIKARI Electrocardiogram DATE OF : 48 PHYSICIAN: MAIRA NYE MD REPORT #: [id number] REPORT IS CONFIDENTIAL AND NOT TO BE RELEASED WITHOUT AUTHORIZATION
--- NOTE | 2021-03-14 12:20 | NUR ---
PATIENT REMAINS SITTING UP IN BED AND CURRENTLY IS EATING HER LUNCH. PT HAS BEEN VERY CONVERSIVE TODAY, AND STATES SHE IS FEELING WELL OVERALL. PT REMAINS ON 2 L NC, BUT WILL BE TITRATED DOWN TOLERATED TO KEEP SP02 >90%. PT'S SON CIARAN HAS BEEN HERE AND SINCE LEFT. PT RECEIVING IV ABX THROUGH MIDLINE IN RIGHT UPPER ARM. PT STILL HAS PERIPHERAL IV SITE BELOW THIS, WHICH WILL BE LEFT AT THIS TIME DUE TO LIMITED VEIN STATUS. PT GIVEN IV LASIX AND HAS BEEN GETTING UP TO USE BSC W/O DIFFICULTY. PT REQUESTING THAT HER SON BRING SOME OF HER HOME BELONGINGS IN TO HER, SUCH HER ROBE. HR IN THE 90s, SINUS AT THIS TIME. EARLIER TODAY BEFORE MEDS WERE GIVEN, WITH ACTIVITY, HR WAS UP TO 130s. PT WOULD BECOME VISIBLY MORE DYSPNEIC WITH THIS, BUT SINCE PO METOPROLOL HAS BEEN RESTARTED, HR UNDER BETTER CONTROL. DIG LEVEL PENDING AND DR. NYE WAITING FOR THIS PRIOR TO RESTARTING HOME DIGOXIN. PT NOW EATING LUNCH. CONTINUE TO MONITOR. POTENTIAL TRANSFER OUT OF CCU LATER THIS AFTERNOON.
--- NOTE | 2021-03-14 14:51 | NUR ---
PATIENT APPEARS TO BE RESTING AT THIS TIME. HR IN THE 80s. SP02 IS 94% ON 2 L NC.
--- NOTE | 2021-03-14 16:18 | NUR ---
PT HAD AN INCONT. VOID. POST VOID BALDDER SCAN SHOWED 888MLS REMAINING. BED LINNEN CHANGE DONE ALSO. PT BACK IN BED.
--- NOTE | 2021-03-14 18:12 | NUR ---
REPORT GIVEN TO ALEKSANDAR HERRON ON MED SURG WHO WILL RESUME CARE FOR THIS PATIENT. PATIENT TRANSFERRED WITH ALL HER BELONGINGS. PT'S DAUGHTER STAR ACCOMPANIES PATIENT. RT CALLED TO MOVE BIPAP TO NEW ROOM. PT MOVED TO ROOM 122. MED BIN CHECKED WELL. PT NOT TRANSFERED ON TELE MONITOR PER ORDER. PT ATE MOST OF HER DINNER.
--- NOTE | 2021-03-14 18:14 | NUR ---
PATIENT ARRIVES FROM CCU IN BED. VITALS OBTAINED. PATIENT IS ALERT AND ORIENTED. RESPIRATIONS EVEN AND UNLABORED. ON O2 PER NC AT 1L/MIN. DENIES PAIN AT THIS TIME. CALL LIGHT IN REACH, BED RAILS UP X2.
--- NOTE | 2021-03-14 19:57 | NUR ---
PATIENT CALLED SAYING SHE IS SHORT OF BREATH. PATIENT'S O2 SATS=95% ON 1L/NC AND RESPIRATIONS ARE 24/MIN. CALLED RT FRANCOIS AND HE IS ON HIS WAY TO TALK TO THE PATIENT. CALL LIGHT IS IN REACH.
--- NOTE | 2021-03-14 19:59 | NUR ---
CALLED TO ROOM FOR SOB. SPO2 BETWEEN 89-92%. MAIN COMPLAINT WAS FEELING SHAKEY. DUONEB GIVEN LESS THAN 1 HOUR AGO. INCREASED O2 TO 2 LPM AND REASSURED PATIENT. SHE WAS ABLE TO HAVE FULL CONVERSATION.
--- NOTE | 2021-03-14 20:39 | NUR ---
PM MED PASS COMPLETE AND ASSESSMENT DONE. PATIENT REMAINS ON 2L/NC AT THIS TIME. VS ARE STABLE MIDLINE AND IV FLUSH WELL. PATIENT IS LITTLE ANXIOUS, BUT IS LEARNING SHE DOES NOT HAVE TO HEAR OR FEEL THE OXYGEN IN THE NC FOR IT TO BE RUNNING. SATS=95% ON 2L/NC. FRESH ICE WATER GIVEN AND CALL LIGHT IS IN REACH. PATIENT HAS NO OTHER CARE NEEDS AT THIS TIME.
--- NOTE | 2021-03-14 22:30 | NUR ---
PATIENT UP TO THE BEDSIDE COMMODE 1PA AND VOIDED 200MLS URINE AND BACK TO BED. O2 TURNED UP TO 4L/NC WHILE UP AND BACK TO 2L/NC NOW O2 SATS=94%. PATIENT HAS NO OTHER NEEDS AT THIS TIME. CALL LIGHT IS IN REACH.
--- NOTE | 2021-03-14 22:46 | NUR ---
PATIENT READY TO GO TO SLEEP AND RT WAS CALLED TO COME GET PATIENT IN CPAP.
--- NOTE | 2021-03-15 00:30 | NUR ---
PATIENT RESTING QUIETLY ON HER LEFT SIDE WITH CPAP ON. RESPIRATIONS ARE REGULAR AND EVEN, EYES CLOSED, AND CALL LIGHT IS IN REACH. PATIENT HAS NO OTHER CARE NEEDS AT THIS TIME.
--- NOTE | 2021-03-15 03:18 | NUR ---
PATIENT'S MIDLINE ANTIBIOTIC COMPLETE AND IV DISCONNECTED AND IV FLUSHED WITH 10MLS NS. PATIENT HAS DECIDED TO COME OFF HER CPAP AND MACHINE PUT IN STANDBY. PATIENT BACK ON 2L/NC AND DENIES ANY OTHER NEEDS AT THIS TIME. CALL LIGHT IN REACH.
--- NOTE | 2021-03-15 06:34 | NUR ---
CALLED PATIENT SAYS SHE CAN'T VOID THIS MORNING, BUT IS UP ON THE COMMODE TRYING. BLADDER SCAN READS 705MLS. GAVE AND ORDER TO STRAIGHT CATH X1 NOW. ALEKSANDAR CASEY IN WITH PATIENT AT THIS TIME.
--- NOTE | 2021-03-15 07:09 | NUR ---
pt WAS ABLE TO VOID 250MLS. STRAIGHT CATH FOR 600MLS, DONE PER PROTOCOL. VITALS RECORDED. NO REQUESTS AT THIS TIME. CALL LIGHT WITHIN REACH.
--- NOTE | 2021-03-15 07:25 | NUR ---
Report received from Johnie HUERTAS. Pt sitting up in bed alert and oriented, on 1L O2 NC at this time, states "breathing machine helped last night". No needs at this time, will continue plan of care.
--- NOTE | 2021-03-15 08:45 | NUR ---
Scheduled medications administered and assessment complete. Pt resting in bed after breakfast, 2L NC O2 in place, states no pain or SOB. Pt in good spirits and talkative with nurses.
--- NOTE | 2021-03-15 11:34 | NUR ---
Rounded on patient who is resting in bed, IVF infusing WNL. Pt asks about lunch options. No other needs, call light in reach
--- NOTE | 2021-03-15 13:29 | NUR ---
Scheduled meds administered, VSS, A+O. Pt working with physical therapy and tolerating well at this time.
--- NOTE | 2021-03-15 14:34 | NUR ---
patient refused a shower. says she might try tomorrow. she is in the bed resting. call light with in reach. no further needs at this time.
--- NOTE | 2021-03-15 19:05 | NUR ---
PATIENT UP TO BSC AND BACK TO BED, SBA. MAKAYLA CARE DONE. CALL LIGHT IN REACH. NO FURTHER NEEDS AT THIS TIME.
--- NOTE | 2021-03-15 19:20 | NUR ---
THIS RN RECEIVED REPORT FROM ALEKSANDAR VARGAS. PATIENT RESTING IN BED WATCHING TV AND DENIES ANY CARE NEEDS AT THIS TIME, BUT SAYS SHE WILL CALL IN A BIT TO GO BACK ON HER TRILOGY MACHINE. CALL LIGHT IS IN REACH.
--- NOTE | 2021-03-15 20:40 | NUR ---
PATIENT'S PM ASSESSMENT COMPLETE. PATIENT ON HER TRILOG [facility] AT THIS TIME. VS STABLE AND PM MEDS GIVEN. NEW ICEWATER GIVEN. PATIENT HAD ME PLUG IN HER PHONE TO CHARGE. PATIENT HAS NO OTHER CARE NEEDS AT THIS TIME.
--- NOTE | 2021-03-15 23:30 | NUR ---
PATIENT RESTING QUIETLY IN BED WATCHING TV. PATIENT DENIES ANY CARE NEEDS AT THIS TIME. PATIENT BACK ON HER NC PER RT. CALL LIGHT IN REACH.
--- NOTE | 2021-03-16 01:00 | NUR ---
PATIENT CALLED TO USE THE COMMODE. 1PA BY THIS RN TO COMODE AND BACK TO BED. VOIDED 375MLS. PATIENT SITTING ON BEDSIDE AND DENIES ANY OTHER CARE NEEDS AT THIS TIME. CALL LIGHT IN REACH.
--- NOTE | 2021-03-16 01:08 | NUR ---
THIS RN CALLED DOWN PATIENT'S BREAKFAST ORDER DOWN TO DIET OFFICE VOICEMAIL. CHEESE OMLET, HOME FRIES, BANANA, BLUEBERRY MUFFIN, HOT CHOCOLATE, GRAPE JUICE, AND BLACK DECAF COFFEE.
--- NOTE | 2021-03-16 02:58 | NUR ---
PATIENT'S IV PIGGYBACK AND FLUSH ARE COMPLETE. MIDLINE LOKED WITH 10ML NS FLUSH. PATIENT DENIES ANY CARE NEEDS AT THIS TIME AND JUST WANTS TO SLEEP. CALL LIGHT IS IN REACH.
--- NOTE | 2021-03-16 04:30 | NUR ---
PATIENT RESTING QUIETLY ON HER 2L/NC ON HER LEFT SIDE, EYES CLOSED, RESPIRATIONS ARE REGULAR AND EVEN, AND CALL LIGHT IS IN REACH.
--- NOTE | 2021-03-16 06:05 | NUR ---
AM ASSESSMENT COMPLETE AND PATIENT SAYS SHE HS HAD A GOOD NIGHT AND ACTUALLY SLEPT PRETTY WELL. PATIENT DENIES ANY CARE NEEDS AT THIS TIME AND IS GOING TO TRY AND GET SOME MORE SLEEP BEFORE BREAKFAST. CALL LIGHT IS IN REACH.
--- NOTE | 2021-03-16 07:15 | NUR ---
Report received from Johnie HUERTAS. Pt resting in bed, 2L NC O2 in place. No needs identified at this time, will continue plan of care.
--- NOTE | 2021-03-16 09:47 | NUR ---
PT AWAKE IN BED WATCHING TV. CALL LIGHT WITHIN REACH. NO FURTHER NEEDS AT THIS TIME
--- NOTE | 2021-03-16 11:55 | NUR ---
PRN tylenol provided to patient after working with physical therapy for mild leg cramps in R leg. Pt resting in bed, has no other needs.
--- NOTE | 2021-03-16 13:14 | NUR ---
ALEKSANDAR ALEGRIA INFORMED ME THAT PT DID NOT WANT A VISIT TODAY. WILL FOLLOW
--- NOTE | 2021-03-16 14:30 | NUR ---
Rounded on patient who is resting in bed with 1-2 L NC O2 in place, tolerating well. Talkative and cheerful with nurses. States no pain at this time. Call light in reach.
--- NOTE | 2021-03-16 16:30 | NUR ---
Attempted to see pt, she is resting with eyes closed. Will see tomorrow.
--- NOTE | 2021-03-16 18:37 | NUR ---
PT AWAKE IN BED. CALL LIGHT IN REACH. NO FURTHER NEEDS AT THIS TIME.
--- NOTE | 2021-03-16 19:05 | NUR ---
RECEIVED REPORT FROM DAY SHIFT RN. PATIENT IS RESTING IN BED. PATIENT DENIES ANY NEEDS. CALL LIGHT IN REACH.
--- NOTE | 2021-03-16 21:20 | NUR ---
PATIENT ASSESMENT COMPLETED. PATIENT DENIES ANY PAIN OR SOB. PATIENTS VITALS TAKEN AND RECORDED. PATIENTS SCHEDULED MEDICATION GIVEN PER ORDER. IV ABX INFUSING PER ORDER. PATIENT REMAINS ON 2L VIA NC. PATIENT DENIES ANY NEEDS. CALL LIGHT IN REACH.
--- NOTE | 2021-03-16 23:10 | NUR ---
PATIENT ASSISTED TO THE BSC. PATIENT ABLE TO VOID. PATIENT IS BACK IN BED RESTING. PATIENT PLACED ON CPAP. CALL LIGHT IN REACH.
--- NOTE | 2021-03-16 23:57 | NUR ---
IN TO ROOM WITH RT. OBSERVED RT GIVNING NEB TREATMENT IN LINE WITH CPAP. PATIENT IS RESTING IN BED WAERING CPAP. NO NEEDS NOTED. CALL LIGHT IN REACH.
--- NOTE | 2021-03-17 01:35 | NUR ---
PATIENT IS RESTING IN BED WITH EYES CLSOED, RR 18. PATIENT CONTINUES TO WEAR CPAP. CALL LIGHT IN REACH. PATIENT APPEARS TO BE IN NO DISTRESS.
--- NOTE | 2021-03-17 01:55 | NUR ---
CALL LIGHT ANSWERED. PATIENT WANTING TO HAVE A BREAK OFF OF CPAP. FRESH ICE WATER REFIILED. PRIMARY RN SILVIANO WAS TALKING WITH THE PATIENT.
--- NOTE | 2021-03-17 02:14 | NUR ---
PATIENT NOW OFF CPAP AND BACK IN OXYGEN. PATIENT PROVIDED WITH FRESH ICE WATER. NO NEEDS NOTED. CALL LIGHT IN REACH.
--- NOTE | 2021-03-17 02:58 | NUR ---
PATIENT IS IN BED RESTING WITH EYES CLOSED, RR 15. CALL LIGHT IN REACH.
--- NOTE | 2021-03-17 04:28 | NUR ---
RT IN TO SEE PATIENT FOR NEB TX. PATIENT DENIES ANY NEEDS.
--- NOTE | 2021-03-17 06:15 | NUR ---
PATIENTS VITALS TAKEN AND RECORDED. INTAKE AND OUTPUT RECORDED. FRESH ICE WATER PROVIDED AND HOT CHOCOLATE. PATIENT DENIES ANY SOB AND REMAINS ON 2L VIA NC. PATIENT DENIES ANY FURTHER NEEDS. CALL LIGHT IN REACH.
--- NOTE | 2021-03-17 09:26 | NUR ---
THIS RN IN PTS ROOM TO GIVE PT MORNING MEDS. PT STATES THAT SHE IS DOING WELL THIS AM AND IS REPORTING ABOUT HER ISSUES WITH THE HOSPITAL FOOD. PT HAS NO OTHER CONCERNS THIS AM. CALL LIGHT WITHIN REACH
--- NOTE | 2021-03-17 10:50 | NUR ---
Spoke with Cielo and she states she does not feel back to baseline. We discussed SNF and SNF. She agrees to have eval from [facility]. Called and asked if they could visit pt and they agree. I contacted [facility] today and they would not have a bed open this week. Son stopped by my office and I updated. He feels pt will decline placement and will end up going home. Pt had wanted to return to [facility] or go to [facility]. I will contact them as pt did much better in a facility and did not return for frequent admissions to the hospital.
--- NOTE | 2021-03-17 12:35 | NUR ---
THIS RN IN PTS ROOM TO CEK ON PT. PT STATES THAT SHE NEEDS TO QUINTERO TO THE BEDSIDE COMMODE. PT ABLE TO GET TO COMMODE AND CALL LIGHT WITHIN REACH
--- NOTE | 2021-03-17 14:41 | NUR ---
PATIENT SITTING UP IN BED WATCHING TV. VITALS AND I&O'S CHARTED. CALL LIGHT IN REACH. NO FURTHER NEEDS AT THIS TIME.
--- NOTE | 2021-03-17 14:45 | NUR ---
THIS RN IN PTS ROOM TO CHECK ON PT. PT STATES THAT SHE IS DOING GOOD AND IS [place] GOT LOOK AT THE MENU TO SEE IF THERE IS SOMETHING ELSE THAT SHE WANTS FOR DINNER.
--- NOTE | 2021-03-17 16:30 | NUR ---
Spoke with Cielo, states she enjoyed her visit with from [facility] she is contacting her children to discuss. We discussed I had spoken with PT and they do not feel pt would qualify for placement to a SNF. I had called and spoke with Majo and ANTHONY at her request, neither have rooms.
--- NOTE | 2021-03-17 17:30 | NUR ---
this rn in pts room to check on pt. pt eating dinner and states that she is doing well. pt states all she needs is butter. this rn able to provide this to pt. no other needs. call light kita reach
--- NOTE | 2021-03-17 19:20 | NUR ---
IN ROOM FOR REPORT, PT IS AWAKE IN BED PLAYING ON PHONE. SHE DENIES NEEDS AT THIS TIME. CALL LIGHT IS CLOSE.
--- NOTE | 2021-03-17 22:20 | NUR ---
IN ROOM TO ASSESS PT AND ADMINISTER MEDICATIONS. PT DENIES PAIN AND SOB. PT STATES SHE HAS SOME SOB WITH AMBULATION. PT DENIES WEAKNESS AND DIZZINES. SHE IS HUNGRY GAVE HER A SANDWICH AND APPLESAUCE. MIDLINE AND IV SITES FLUSH GOOD WITH GOOD BLOOD RETURN. PT WILL CALL WHEN SHE IS DONE SO SHE CAN USE RESTROOM AND GET CPAP ON. CALL LIGHT IS CLOSE.
--- NOTE | 2021-03-18 00:24 | NUR ---
PT IS RESTING WITH EYES CLOSED, RR IS EVEN AND UNLABORED ON 2LNC. CALL LIGHT IS CLOSE.
--- NOTE | 2021-03-18 02:23 | NUR ---
PT IS RESTING WITH EYES CLOSED, RR IS EVEN AND UNLABORED. CALL LIGHT IS CLOSE.
--- NOTE | 2021-03-18 03:34 | NUR ---
PT IS RESTING WITH EYES CLOSED, RR IS EVEN AND UNLABORED ON 2LNC. CALL LIGHT IS CLOSE.
--- NOTE | 2021-03-18 04:41 | NUR ---
PT CALLED SAYING SHE IS READY TO WEAR HER CPAP. SHE WAS UP TO USE RESTROOM A LITTLE WHILE AGO AND DENIES NEEDING TO GO AT THIS TIME. PT DENIES PAIN AND SOB. CPAP IS ON AND CALL LIGHT IS CLOSE. VS TAKEN AND ENTERED.
--- NOTE | 2021-03-18 06:43 | NUR ---
PT CALLED NEEDING HELP WITH O2. SHE SAYS SHE COULDNT FIND NC IN BED, REPLACED 2LNC AND CHECKED O2 SAT WHICH WAS 99%. PT WAS ANXIOUS BUT HAS CALMED DOWN. SHE DENIES FURTHER NEEDS. CALL LIGHT IS CLOSE.
--- NOTE | 2021-03-18 07:25 | NUR ---
this rn received report from gomez peters. pt awake this am and reporting her concerns about the hospital food.
--- NOTE | 2021-03-18 08:47 | NUR ---
PT SITTING UP IN BED TALKING ON PHONE. MORNING CARE GIVEN.WHITE BOARD UPDATED. CALL LIGHT WITHIN REACH, NO FURTHER NEEDS AT THIS TIME. NO CHAIR PER RN.
--- NOTE | 2021-03-18 10:00 | NUR ---
THIS RN IN PTS ROOM TO GIVE MORNING MEDS. PT STATES THAT SHE IS THINKING ABOUT GOING TO GO HOME AND THEN WILL THINK ABOUT GOING TO [facility]. IN ROOM TO DISCUSS DISCHARGE PT, ATTEMPTED TO TALK PT ABOUT GETTING MORE ASSISTANCE, PT STILL NOT CONVINCED. CALL LIGHT WITHIN REACH
[2021-03-18] MEDS ORDERED: CEFPODOXIME PR200 MG PO (10:25)
[2021-03-18] MEDS ORDERED: DIGITEK125 MCG PO (10:26)
[2021-03-18] MEDS ORDERED: PREDNISONE20 MG PO (10:29)
--- NOTE | 2021-03-18 11:00 | NUR ---
Spoke with Cielo. States she has decided to go home. She does not have anything ready to move to an SENIOR CARE at this time. Plans on going home alone, son live next door. They have not attempted to get pt an cg, but do have the paperwork. Pt states she does not feel herself, but is ready to go home. We discussed if she changes her mind she can call Colette at [facility] and check if they still have a stud apartment. I suggested she put her name on their waiting list for the future. She denies other needs. Home today, family will transport.
== END 2021-03-18 12:45 | disposition home or self-care (01) | DRG 291 ==
LOC: ED 05:15 → MS 06:25 → CCU 06:25 → MS 03-14 18:10
PROVIDERS: ADMIT Internal Medicine; ATTEND Internal Medicine
PROC: 5A09557 Assistance with Respiratory Ventilation, Greater than 96 Consecutive Hours, Continuous Positive Airway Pressure (ICD-10-PCS; principal; 2021-03-18)
DX: I50.23 Acute on chronic systolic (congestive) heart failure (principal); R57.0 Cardiogenic shock; J96.21 Acute and chronic respiratory failure with hypoxia; J96.22 Acute and chronic respiratory failure with hypercapnia; J44.1 Chronic obstructive pulmonary disease with (acute) exacerbation; Z66 Do not resuscitate; I47.1 Supraventricular tachycardia; Z20.822 Contact with and (suspected) exposure to COVID-19; I48.0 Paroxysmal atrial fibrillation; E78.5 Hyperlipidemia, unspecified; Z87.891 Personal history of nicotine dependence; Z88.2 Allergy status to sulfonamides; Z88.5 Allergy status to narcotic agent; Z88.1 Allergy status to other antibiotic agents; Z88.8 Allergy status to other drugs, medicaments and biological substances; Z79.02 Long term (current) use of antithrombotics/antiplatelets; Z79.899 Other long term (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 therapy
CPT/HCPCS: 36569; 36600; 71045; 71260; 80048; 80053; 80162; 82803; 83735; 83880; 84484; 85025; 93005; 93010; 93306; 94640; 94660; 94760; 96365; 96367; 96375; 97110; 97116; 97162; 97165; 97530; 99285-25; C1751; C9803; J0456; J0692; J1650; J1940; J2270; J2405; J2920; J2930; J3475; J7060; J7121; J7512; Q9967; U0003

== ENCOUNTER 2021-04-20 14:38 | Emergency (ER) | payer MEDICARE ==
[~2021-04-20] VITALS: Ht 149.9 cm; Wt 47.2 kg
[~2021-04-20 14:38] MED LIST changes: +CEFPODOXIME PR200 MG PO; +DOXYCYCLINE MO100 MG PO; +MORPHINE S100 MG/5 M PO; +PREDNISONE20 MG PO
--- OUTSIDE RECORDS SUMMARY | 2021-04-20 14:40 | XMS ---
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 Care History Medical/Surgical 03/16/2021 [facility] Follow up with Dr Nye at 5pm 03/16/2021 02/18/2021 [facility] - Patient is currently established with [facility]. If patient is seen in the ED during business hours. Please contact CHWs at [facility]. Care Recommendation: If this patient has had [...] E.D. VISIT COUNT (12 MO.) 3 [facility] 1 Saulo SmithKimberli 8 RENY Sy TOTAL 12 NOTE: Visits indicate total known visits. ED/UCC VISIT TRACKING (12 MO.) 04/20/2021 14:38 [facility] [place] TYPE: Emergency COMPLAINT: - DIFFUCULTY BREATHING 04/12/2021 21:58 [facility] [place] TYPE: Emergency COMPLAINT: - SHOB 03/12/2021 05:16 [facility] [place] TYPE: Emergency COMPLAINT: - TROUBLE BREATHING 02/16/2021 21:[address] [facility] [place] TYPE: Emergency COMPLAINT: - DIFFICULTY BREATHING 01/27/2021 21:26 [facility] [place] TYPE: Emergency COMPLAINT: - UNRESPONSIVE 2021 01:45 [facility] [place] TYPE: Emergency COMPLAINT: - SHORTNESS OF BREATH 12/07/2020 15:[facility] DIAGNOSES: - ABD PAIN - Other complications of gastrostomy 11/25/2020 23:45 [facility] [place] TYPE: Emergency COMPLAINT: - Chest Pain_[place] 11/25/2020 21:46 [facility] [place] TYPE: Emergency DIAGNOSES: - ST elevation (STEMI) myocardial infarction of unspecified site - COVID-19 - Chronic obstructive pulmonary disease, unspecified - +COVID SOB 11/12/2020 20:30 [facility] [place] TYPE: Emergency DIAGNOSES: - SOB - Other specified abnormalities of plasma proteins - Retention of urine, unspecified - Chronic obstructive pulmonary disease with (acute) exacerbation - COVID-19 - Heart failure, unspecified 10/14/2020 21:11 [facility] [place] TYPE: Emergency COMPLAINT: - ABDOMINAL PAIN 10/12/2020 19:54 [facility] [place] TYPE: Emergency COMPLAINT: - GLF - LOC INPATIENT VISIT TRACKING (12 MO.) 04/12/2021 21:59 [facility] [place] TYPE: Observation COMPLAINT: - COPD EXACERBATION, CHF RESPIRATORY FAILURE DIAGNOSES: - Supraventricular tachycardia - Chronic systolic (congestive) heart failure - Allergy status to other antibiotic agents - Do not resuscitate - Hypertensive heart disease with heart failure - Allergy status to other drugs, medicaments and biological substances - Personal history of nicotine dependence - Allergy status to narcotic agent - Allergy status to sulfonamides - Dependence on supplemental oxygen - Acute and chronic respiratory failure with hypercapnia - Chronic obstructive pulmonary disease, unspecified - Acute and chronic respiratory failure with hypoxia 03/12/2021 06:25 [facility] [place] TYPE: Medical Surgical COMPLAINT: - COPD/CHF EXACERBATION, HYPERCAPNEIC RESP FAILURE DIAGNOSES: - Acute and chronic respiratory failure with hypercapnia - Severe sepsis with septic shock - Acute and chronic respiratory failure with hypoxia - custodial (current) use of antithrombotics/antiplatelets - Allergy status to other drugs, medicaments and biological substances - Paroxysmal atrial fibrillation - Hyperlipidemia, unspecified - Allergy status to other drugs, medicaments and biological substances - Cardiogenic shock - Chronic obstructive pulmonary disease with (acute) exacerbation - Acute on chronic systolic (congestive) heart failure - Personal history of nicotine dependence - Supraventricular tachycardia - Allergy status to other antibiotic agents - Allergy status to narcotic agent - Allergy status to narcotic agent - Sepsis, unspecified organism - custodial (current) use of antithrombotics/antiplatelets - Personal history of nicotine dependence - Other half-way (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 therapy - Hyperlipidemia, unspecified - Cardiogenic shock - Do not resuscitate - Paroxysmal atrial fibrillation - Acute and chronic respiratory failure with hypercapnia - 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 - Allergy status to sulfonamides - Do not resuscitate - Supraventricular tachycardia - Acute on chronic systolic (congestive) heart failure - Allergy status to sulfonamides - Chronic obstructive pulmonary disease with (acute) exacerbation - Acute and chronic respiratory failure with hypoxia - Allergy status to other antibiotic agents 02/16/2021 21:43 [facility] [place] TYPE: Observation COMPLAINT: - [...] other drugs, medicaments and biological substances - 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 inspector (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) 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 of anticoagulants - Paroxysmal atrial [...] heart failure - Emphysema, unspecified - 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 pneumoniae] as the cause of diseases classified elsewhere - Atherosclerotic heart disease of [place] coronary artery without angina pectoris - Old [...] - Allergy status to sulfonamides 11/25/2020 23:45 [facility] TYPE: Medical Surgical COMPLAINT: - STEMI, COVID [...] Hyperlipidemia, unspecified 18. Atherosclerotic heart disease of [place] coronary artery without angina pectoris 19. Presence of aortocoronary bypass graft 20. CONTACT W/AND (SUSP) EXPOS COVID-19 21. watermelon inspector (current) use of antithrombotics/antiplatelets 22. watermelon inspector (current) use of aspirin 23. 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 [place] TYPE: Observation COMPLAINT: - SYNCOPE DIAGNOSES: - Allergy status to narcotic agent - Nicotine dependence, cigarettes, uncomplicated - Dehydration - Allergy status to other drugs, medicaments and biological substances - Do not resuscitate - Allergy status to sulfonamides - Essential (primary) hypertension - Atherosclerotic heart disease of [place] coronary artery without angina pectoris - Orthostatic hypotension - Diarrhea, unspecified - Panlobular emphysema - Hyperlipidemia, unspecified - Syncope and collapse - Allergy status to other antibiotic agents - Chronic respiratory failure with hypoxia [email or web address]
[2021-04-20] MEDS ORDERED: DIGOXIN125 MCG PO (14:47)
--- NOTE | 2021-04-20 20:40 | EKG ---
[facility] [address] [place], [place] [address] Signed Normal sinus rhythm Cannot rule out Anterior infarct , age undetermined T wave abnormality, consider inferolateral ischemia Abnormal ECG When compared with ECG of 12-APR-2021 23:10, Significant changes have occurred Confirmed by LUKAS PHELPS MD ([id number]) on 04/20/2021 8:39:44 PM Electronically Signed By: LUKAS PHELPS MD 04/20/212039 PATIENT NAME: GLORIA ADHIKARI Electrocardiogram DATE OF : 48 PHYSICIAN: LUKAS PHELPS MD REPORT #: [id number] REPORT IS CONFIDENTIAL AND NOT TO BE RELEASED WITHOUT AUTHORIZATION
== END 2021-04-20 17:34 | disposition home or self-care (01) ==
LOC: ED 14:38
DX: R00.1 Bradycardia, unspecified (principal); J44.9 Chronic obstructive pulmonary disease, unspecified; I10 Essential (primary) hypertension; Z87.891 Personal history of nicotine dependence; Z88.2 Allergy status to sulfonamides; Z88.5 Allergy status to narcotic agent; Z88.8 Allergy status to other drugs, medicaments and biological substances; Z79.899 Other long term (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 therapy
CPT/HCPCS: 36415; 71045; 80053; 80162; 83735; 84484; 85025; 93005; 93010; 99285-25

== ENCOUNTER 2021-04-21 19:45 | Inpatient (IN) | payer MEDICARE ==
[~2021-04-21] VITALS: Ht 149.9 cm; Wt 46.4 kg
--- OUTSIDE RECORDS SUMMARY | 2021-04-21 19:48 | XMS ---
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 Care History Medical/Surgical 03/16/2021 [facility] Follow up with Dr Nye at 5pm 03/16/2021 02/18/2021 [facility] - Patient is currently established with [facility]. If patient is seen in the ED during business hours. Please contact CHWs at [facility]. Care Recommendation: If this patient has [...] care. E.D. VISIT COUNT (12 MO.) 3 [facility] 1 Saulo SmithKimberli 9 RENY Sy TOTAL 13 NOTE: Visits indicate total known visits. ED/UCC VISIT TRACKING (12 MO.) 04/21/2021 19:46 [facility] [place] TYPE: Emergency COMPLAINT: - DIFFICULTY BREATHING 04/20/2021 14:38 [facility] [place] TYPE: Emergency COMPLAINT: - DIFFUCULTY BREATHING 04/12/2021 21:58 [facility] [place] TYPE: Emergency COMPLAINT: - SHOB 03/12/2021 05:16 [facility] [place] TYPE: Emergency COMPLAINT: - TROUBLE BREATHING 02/16/2021 21:42 [facility] [place] TYPE: Emergency COMPLAINT: - DIFFICULTY BREATHING 01/27/2021 21:26 [facility] [place] TYPE: Emergency COMPLAINT: - UNRESPONSIVE 2021:45 R[facility] TYPE: Emergency COMPLAINT: - SHORTNESS OF BREATH 12/07/2020 15:29 [facility] DIAGNOSES: - ABD PAIN - Other complications of gastrostomy 11/25/2020 23:45 Saulo [facility] TYPE: Emergency COMPLAINT: - Chest [facility] 11/25/2020 21:46 [facility] DIAGNOSES: - ST elevation (STEMI) myocardial infarction of unspecified site - COVID-19 - Chronic obstructive pulmonary disease, unspecified - +COVID SOB 11/12/2020 20:30 [facility] [place] TYPE: Emergency DIAGNOSES: - SOB - [...] and chronic respiratory failure with hypoxia - 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..] heart failure - Emphysema, unspecified - 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 project manager (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 therapy - Allergy status to other drugs, medicaments and biological substances - Supraventricular tachycardia - Allergy status to sulfonamides - Acquired absence of other specified parts of digestive tract - Acquired absence of both cervix and uterus - Other specified postprocedural states - Atherosclerotic heart disease of [place] coronary artery without angina pectoris - Hypertensive [...] - Retention of urine, unspecified - Other long-term (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 therapy - Klebsiella pneumoniae [K. pneumoniae] as the cause of diseases classified elsewhere - Atherosclerotic heart disease of [place] coronary artery without angina pectoris - Old [...] - Allergy status to sulfonamides 11/25/2020 23:45 [facility] TYPE: Medical Surgical COMPLAINT: - STEMI, COVID 19_[place] DIAGNOSES: 0. COVID-19 0. Non-ST elevation (NSTEMI) [...] Hyperlipidemia, unspecified 18. Atherosclerotic heart disease of [place] coronary artery without angina pectoris 19. Presence of aortocoronary bypass graft 20. CONTACT W/AND (SUSP) EXPOS COVID-19 21. 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 terminal block assembler (current) use of aspirin 23. Other long-term (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 therapy 10/16/2020 15:[address] 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 therapy - Anxiety disorder, unspecified - Allergy status to other drugs, medicaments and biological substances - Old myocardial infarction - Bronchiectasis, uncomplicated - Old myocardial infarction - Allergy status to other antibiotic agents - Other long-term (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 therapy - Allergy status to [...] (primary) hypertension - Atherosclerotic heart disease of [place] coronary artery without angina pectoris - Orthostatic hypotension - Diarrhea, unspecified - Panlobular emphysema - Hyperlipidemia, unspecified - Syncope and collapse - Allergy status to other antibiotic agents - Chronic respiratory failure with hypoxia [email or web address]
--- NOTE | 2021-04-21 22:03 | NUR ---
PT ARRIVED TO UNIT VIA STRETCHER WITH RN, RT, AND TECH, PT ON BIPAP, TRIPODDING. PT MOVED OVER TO UNIT BED VIA DRAW SHEET, VITALS TAKEN, FOCUSED ASSESSMENT PERFORMED, PT PLACED IN POSITION OF COMFORT, ADMISSION ASSESSMENT COMPLETED, FAMILY AT BEDSIDE, EDUCATION GIVEN TO PT AND FAMILY REGARDING GOALS OF TONIGHT, ENCOURAGE LOTS OF REST FOR PT, MEDICATIONS AND LABS REVIEWED, WILL CONTINUE TO CLOSLEY MONITOR PT THROUGHOUT NIGHT WITH FREQUENT RESPIRATORY ASSESSMENTS
--- NOTE | 2021-04-21 23:07 | NUR ---
DR PHELPS NOTIFIED OF PTS HYPOTENSION, DR PHELPS STATED SHES OKAY WITH A MAP OVER 55 AND TO CONITNUE MONITORING, VITALS CHANGED TO Q15, WILL CONTINUE TO MONITOR
--- NOTE | 2021-04-22 01:05 | NUR ---
PT RESTING COMFORTABLY IN BED, ASLEEP, DR PHELPS AWARE OF BLOOD PRESSURE, BIPAP REMAINS ON PT AT 50%, HEART RATE MID 50S TO LOW 60S, COATES DRAINING LIGHT YELLOW URINE, WILL CONTINUE TO MONITOR PT AND ALLOW FOR OPTIMAL REST AND RELAXATION
--- NOTE | 2021-04-22 03:07 | NUR ---
PT TOOK OFF BIPAP, REFUSING TO WEAR IT, STATED SHE WANTS THE NASAL CANNULA. OXYMASK AT 15 LPM APPLIED TO PT, SATING MID 90'S, EDUCATED PT ON IMPORTANCE OF WEARING BIPAP AND WHY SHE WOULD BENEFIT FROM IT, PT STATES SHE UNDERSTANDS BUT WANTS THE OXYMASK. RT NOTIFIED OF TREATMENT CHANGE, STATED HE WILL COME DOWN SOON TO GIVE A BREATHING TREATMENT AND ASSESS PT
--- NOTE | 2021-04-22 03:39 | NUR ---
RT AND RN WITH PT AT BEDSIDE. EXPLAINED TO PT THE IMPORTANCE AND NEED OF WEARING THE BIPAP FOR A WHILE LONGER. PT REMAINS TACHYPNEIC, UNABLE TO SPEAK IN FULL SENTENCES WITHOUT TAKING PAUSES. PT AGREEABLE TO PUT BIPAP BACK ON IF SHE CAN DRINK A CUP OF WATER AND TAKE A SMALL BREAK. RT AND RN AGREED TO GIVE A BREAK FOR 20 MINUTES AND ALLOW PT TO DRINK A SMALL GLASS OF WATER. PT ALERT HOWEVER FORGETFULL OF EVENTS LEADING TO THIS HOSPITALIZATION, SHE BELEIVES THIS ADMISSION IS FROM HER VISIT TO THE ED ON 04/20. DOES NOT REMEMEBER BEING DISCHARGE HOME AND READMITTED TODAY
--- NOTE | 2021-04-22 03:54 | NUR ---
ATTEMPTING TO RETAKE BLOOD PRESSURE FROM 0345, PT REFUSES TO LEAVE ARM STILL, IS MOVING AROUND, TALKING TO RT, WHEN A READING DID TAKE IT READ 141/107. PT COUGHING AND RT ATTEMPTING TO PLACE PT BACK ON BIPAP. WILL REATTEMPT BP ONCE PT HAS SETTLED AND BIPAP IS BACK ON PT
--- NOTE | 2021-04-22 05:05 | NUR ---
PT REMAINS ON BIPAP AT 50%, RESTING IN BED, VITALS WNL, NO CHANGES FROM PREVIOUS ASSESSMENT
--- NOTE | 2021-04-22 07:20 | NUR ---
REPORT RECIEVED. PATIENT IS RESTLESS ON BIPAP. REQUESTING BIPAP TO BE OFF, O2 NC, AT 4 L APPLIED. ENC PATIENT TO REST AND RELAX. HOB ELEVATED.
--- NOTE | 2021-04-22 07:25 | EKG ---
[facility] [address] [place] [address] Signed Sinus tachycardia Biatrial enlargement Left axis deviation Left ventricular hypertrophy with QRS widening ( Ute product ) ST elevation, consider early repolarization, pericarditis, or injury ST \T\ T wave abnormality, consider lateral ischemia Abnormal ECG When compared with ECG of 20-APR-2021 15:29, Significant changes have occurred Confirmed by LUKAS PHELPS MD ([id number] on 04/22/2021 7:25:03 AM Electronically Signed By: LUKAS PHELPS MD 04/22/21 0725 PATIENT NAME: GLORIA ADHIKARI Electrocardiogram DATE OF : 48 PHYSICIAN: LUKAS PHELPS MD REPORT #: [id number] REPORT IS CONFIDENTIAL AND NOT TO BE RELEASED WITHOUT AUTHORIZATION
--- NOTE | 2021-04-22 08:11 | NUR ---
Pt returns with COPD exaceration after dc last week. Last 3 admissions pt has discussed placement to a residential care. Family are against this. Pt plans to return home. FAmily assist her, pt is no longer able to complete house hold tasks, family bring her food and she snacks. Sh is not compliant withher Trilogy NIV. Plans on return to home when she returns to baseline.
--- NOTE | 2021-04-22 08:54 | NUR ---
MORE RELAXED AT THIS TIME. IS AWAKE WITH TV ON. HOB ELEVATED. TALKED WITH PATIENT ABOUT CO2 RENTENTION. PATIENT HAS BEEN TALKED TO ABOUT THIS WITH PAST HOSPITALIZATIONS, PATIENT IS REALLY NOT ABLE TO GRASP THIS CONCEPT. PATIENT STATES NO ONE HAS TOLD HER ANY OF THIS, SHE HAS BEEN EDUCATED ON THIS MANY, MANY TIMES.
--- NOTE | 2021-04-22 09:00 | NUR ---
TOOK BREAKFAST WELL.
--- NOTE | 2021-04-22 10:38 | NUR ---
PT ALERT, ORIENTED AND SITTING UP IN BED WITH O2 NC IN USE. PT SEEMED ALMOST EMBARRASED TO BEING RE-ADMITTED SO SOON.GAVE ENCOURAGEMENT, PT STILL HAS HER SENSE OF HUMOR.PT ADMITTED SHE HAS TO BE BETTER AT USING HER TRILOGY MACHINE AT HOME. THIS WAS ALL HER FAULT ACCORDING TO HER. PT REQUESTED PRAYER, TOLD ME SHE WAS THANKFUL I CAME. GAVE BLESSING AND WILL FOLLOW
--- NOTE | 2021-04-22 11:52 | NUR ---
PATIENT UP TO BSC WITH 1PA. UNABLE TO HAVE BM. PATIENT NOW AT SIDE OF BED FOR LUNCH, CALL LIGHT IN EASY REACH
--- NOTE | 2021-04-22 13:30 | NUR ---
TOOK AMAYA MENA.
--- NOTE | 2021-04-22 14:00 | NUR ---
Spoke with pt's son Augusto. Pt cont. to state she s fully compliant at home. Per son this is not so. Son sets up nebulizers to be take q 12 hrs and when he returns they have not been used, pt also states she is using her Trilogy as ordered but this is also not correct. I again discussed the need for a cg for this pt and per son, pt does not want anyone in her home. She has also verbalized this to me and family are not interested in placement.
--- NOTE | 2021-04-22 15:30 | NUR ---
SON IN ROOM. PATIENT HAS BEEN ON BIPAP, NOW ON O2 NC AT 3 LITERS.
--- NOTE | 2021-04-22 18:57 | NUR ---
NO CHANGES. IS ON O2 AT 3 L NC NOW. ENC TO LAY ON RIGHT SIDE C/O COCCYX PAIN. REPORT TO NEXT SHIFT. HAS BEEN ON BIPAP A FEW TIMES TODAY, HOWEVER HAS DONE WELL ON O2 NC. RT IN ROOM.
--- NOTE | 2021-04-22 20:00 | NUR ---
PATIENT UP TO THE BSC, MOVES EASILY WITH CORD MANAGEMENT. VS STABLE. TITRATED TO 3L NC, SPO2 98-99%. PATIENT APPEARS IN GOOD SPIRIRTS. SPEAKING IN FULL SENTANCES. AAOX4. UNDERSTANDS SHE WAS FORGETFUL FROM PRIOR TO ADMISSION AND "LOST SOME TIME". OCATES HAS GOOD OUTPUT. PATIENT ATTEMPTING TO HAVE BM MULTIPLE TIMES BUT UNSUCCESSFUL. DENIES NEED FOR BOWEL CARE. HAS BEEN REGULAR RECENTLY. LUNG SOUNDS ARE DIM THROUGHOUT. PATIENT WANTING TO WEAR THE BIPAP LATER TONIGHT WHEN READY FOR SLEEP. DENIES ANY FURTHER NEEDS AT THIS TIME. CALL LIGHT IN REACH.
--- NOTE | 2021-04-22 22:55 | NUR ---
SCHEDULED MEDS PROVIDED. PATIENT WAS SLEEPING BUT WOKE EASILY WHEN RN IN ROOM. PATIENT IS TOLERATING 3L NC. DENIES SOB. SPEAKING IN FULL SENTANCES. ORIENTED X4.
--- NOTE | 2021-04-23 01:00 | NUR ---
PATIENT SLEEPING SOUNDLY ON BIPAP, RR 20 AND SPO2 96% ON 30% Fi02. GOOD URINE OUTPUT. CALL LIGHT IN REACH.
--- NOTE | 2021-04-23 04:26 | NUR ---
RT DID TRIAL OF AVAPS AKA AVERAGE VOLUME-ASSURED PRESSURE SUPPORT. THIS MODE SIMULATES THE HOME UNIT TRILOGY WHICH GLORIA HAS. HER CURRENT SETTING ARE UNKNOWN AND WE ARE ASKING FAMILY TO BRING IN UNIT. THE GOAL IS TO DISCOVER WHY HER CURRENT SETTINGS ARE NOT KEEPING HER AT HOME PATIENT HAS REACCURENT HOSPITIALIZATIONS. I KNOW WE HAVE SOME ISSUES WITH NON-COMPLIANCE, BUT PATIENT CONTINUES TO REPORT "IT DOESN'T BLOW ENOUGH. SHE STATES SHE IS REALLY TRYING TO USE MORE AND AN OPTIMIST I BELIEVE HER. I WILL NEED HELP FROM THE FOLLOWING TEAM. 1. DR PHELPS TO APPROVE THIS AM VBG AND GIVE ME A PRN VBG ORDER. 2. CASE MANAGEMENT PLEASE CONTACT [facility] AND OBTAIN CURRENT ORDER AND A BLANK TRILOGY ORDER FORM. 3. DR NYE WHO IS PCP WILL BE IN HOUSE IN THIS TUESDAY AND MY GOAL IS TO DISCUSS PLAN OF ACTION ON HOW WE OPTIMISE HOME REGIMEN. 4. DAYSHIFT CCU NURSES TO ASK FAMILY TO BRING IN CURRENT TRILOGY.
--- NOTE | 2021-04-23 05:00 | NUR ---
PATIENT UP TO THE BSC TO HAVE BM, UNSUCESSFUL. PATIENT REPORTS SLEEPING BETTER THAN NORMAL, FEELS WELL THIS MORNING. DISCUSSED CHANGES RT MADE TO BIPAP AND PATIENT REPORTS FEELING AN IMPROVEMENT. VS STABLE. COATES EMPTIED, GOOD OUTPUT. TOLERATES 3L NC, SOEAKS IN FULL SENTANCES. LUNG SOUNDS ARE STILL DIMINISHED. OCCATIONAL PRODUCTIVE COUGH.
--- NOTE | 2021-04-23 06:29 | NUR ---
PATIENT ON 3L NC AT THIS TIME. SCHEDULED MEDS PROVIDED. PATIENT PROVIDED BREAKFAST ORDER CHANGES. NO OTHER NEEDS AT THIS TIME.
--- NOTE | 2021-04-23 06:50 | NUR ---
UPDATE PROVIDED TO ABOUT PATIENT'S RT TREATMENT AND ASSESSMENT OVER NIGHT
--- NOTE | 2021-04-23 07:30 | NUR ---
REPORT RECCEIVED FORM MURRAY HUERTAS. PT SITTING UP IN BED, DENIES NEEDS AT THIS TIME.
--- NOTE | 2021-04-23 08:43 | NUR ---
MED REC COMPLETE
--- NOTE | 2021-04-23 08:55 | NUR ---
Remains tired, not ready for dc today.
--- NOTE | 2021-04-23 10:05 | NUR ---
STUDENT NURSE IN WITH PT. MEDICATIONS ADMINISTERED ORDERED. PT COMFORT AND ELIMINATION ADDRESSED. HEAD TO TOE ASSESSMENT COMPLETED. CALL LIGHT WITHIN REACH. NO OTHER PT NEEDS AT THIS TIME. WILL CONTINUE TO MONITOR.
--- NOTE | 2021-04-23 12:34 | NUR ---
RT IN TALKING WITH PT
--- NOTE | 2021-04-23 12:57 | NUR ---
UP TO BSC WITH CALL LIGHT IN REACH, WILL SIT TO TRY TO HAVE A BOWEL MOVEMENT AND WILL CALL WHEN SHE IS DONE. LUNGS AUSCULTATED, DIM WITH SOME COARSE SOUNDS HEARD IN RIGHT BASE.
--- NOTE | 2021-04-23 13:57 | NUR ---
STUDENT NURSE IN WITH PT. PT UP TO CHAIR. PT SAFETY AND CORD MANAGEMENT ADDRESSED. CALL LIGHT WITHIN REACH. NO OTHER PT NEEDS AT THIS TIME. WILL CONTINUE TO MONITOR.
--- NOTE | 2021-04-23 14:31 | NUR ---
STUDENT NURSE IN WITH PT. PT BACK TO BED FROM CHAIR. AMINATA DISCONTINUED ORDERED PER DR. PHELPS. PT ELIMINATION ADDRESSED. CALL LIGHT WITHIN REACH. NO OTHER NEEDS AT THIS TIME. WILL CONTINUE TO MONITOR.
--- NOTE | 2021-04-23 14:42 | NUR ---
PT SITTING IN CHAIR-SAID SHE WAS REALLY TIRED OF THE BED. ALSO TIRED OF BEING POKED. BOTH ARMS AND HANDS VERY BRUISED FROM IV, PT DID EXPRESS HOW MUCH SHE APPRRECIATES THE CARE SHE RECEIVES AT [facility]. WOULD LIKE TO WALK, SHARED WITH UNIT RN'S. THEY WILL TRY TO MAKE A SHORT WALK POSSIBLE. GAVE ENCOURAGEMENT AND WILL FOLLOW NEEDED
--- NOTE | 2021-04-23 15:30 | NUR ---
PT UP IN CHAIR, WATCHING TV AND TALKING ON PHONE.
--- NOTE | 2021-04-23 17:02 | NUR ---
STUDENT NURSE IN WITH PT. BACK TO BED FROM CHAIR. VITAL SIGNS OBTAINED. CALL LIGHT WITHIN REACH. NO OTHER NEEDS AT THIS TIME. WILL CONTINUE TO MONITOR.
--- NOTE | 2021-04-23 18:06 | NUR ---
PT GOT UP TO BSC, C/O SOB WITH CHEST PAIN. PT PLACED BACK ON MONITOR, HR 120-130'S. PT ASSISTED BACK TO BED AND PLACED ON BIPAP AND ENCOURAGED TO RELAX AND SLOW BREATHING, STUDENT RN STAYING AT BEDSIDE. CALL PLACED TO DO RASCH TO UPDATE ON SITUATION, STATES SHE WILL LOOK INTO IT.
--- NOTE | 2021-04-23 18:52 | NUR ---
PT GIVEN IV DIGOXIN PER DR PHELPS ORDER, CURRENTLY RESTING IN BED WEARING BIPAP. HR 100, RR 29, SPO2 97%.
--- NOTE | 2021-04-23 19:15 | NUR ---
PT GOT UP TO BSC WITH 3L/NC/O2 IN PLACE, HR WENT BACK UP TO 130'S WHILE UP, BACK DOWN QUICKLY ONCE PT BACK IN BED. SPO2 WENT DOWN TO 82% WHILE WITH ACTIVITY, WHICH ALSO RECOVERED BACK UP TO HIGH NINETIES ONCE PT LYING DOWN. WAS ABLE TO VOID 300ML POST COATES REMOVAL AND HAD A VERY SMALL BOWEL MOVEMENT.
--- NOTE | 2021-04-23 19:33 | NUR ---
RT IN TO SEE PT
--- NOTE | 2021-04-23 20:00 | NUR ---
PATIENT RESTING IN BED. TOLERATING 3L NC. HR 105-115, ADEQUATE BP. SCHEDULED MEDS PROVIDED. PATIENT DENIES PAIN. REPORTS SOB IS MILD. SPEAKING IN FULL SENTANCES NOW, RR 22. ORAL TEMP WNL. LUNG SOUNDS ARE CLEAR IN THE UPPER LOBES, DIMINSIHED IN MID AND LOWERS. PATIENT ABLE TO VOID AFTER COATES DC, DENIES ANY CONCERNS ABOUT THIS. PATIENT HAS PRODUCTIVE COUGH, CAMPOS SPUTUM.
--- NOTE | 2021-04-23 21:18 | NUR ---
fresh ice water provided. patient resting in bed watching tv. denies any concerns at this time. tolerating 3L NC. call light in reach.
--- NOTE | 2021-04-23 22:15 | NUR ---
PATIENT UP TO BSC. VOIDED. NEW ATTENDS PROVIDED. PATIENT BACK IN BED. BIPAP IN PLACE. CALL LIGHT IN REACH. VS STABLE. LIGHTS DIMMED.
--- NOTE | 2021-04-24 00:31 | NUR ---
PATIENT CALLED TO BE TAKEN OF BIPAP. PATIENT REPORTS "I JUST FEEL LIKE I NEED SOME FRESH AIR". PATIENT ON 3L NC. RESTING IN BED WATCHING TV. VS STABLE. LUNG SOUNDS DIMINISHED AND CLEAR. DENIES OTHER NEEDS AT THIS TIME. HR 70'S, SR.
--- NOTE | 2021-04-24 01:50 | NUR ---
patient provided with a snack box per request. patient tolerating 3L NC. HR 70's, SR. No othe rneeds at this time. call light in reach.
--- NOTE | 2021-04-24 03:00 | NUR ---
PATIENT UP TO BSC. MEDIUM BM AND VOID. PATIENT RETURNED TO BED. SPEAKING IN FULL SENTANCES, TOLERATING 3L. PRODUCTIVE COUGH NOTED. PATIENT DENIED ANY CONCERNS. WILL ATTEMPT TO SLEEP MORE, BIPAP IN PLACE.
--- NOTE | 2021-04-24 05:00 | NUR ---
PATIENT RESTING IN BED WATCHING TV. TOLERATING 3L NC. CLEAR LUNGS, DIM IN BASES. LOOSE COUGH. VS STABLE. PATIENT DENIED NEEDS.
--- NOTE | 2021-04-24 07:30 | NUR ---
REPORT RECEIVED FROM MURRAY HUERTAS. SITTING UP IN BED, STUDENT RN IN TO SEE PT.
--- NOTE | 2021-04-24 07:54 | NUR ---
REPORT RECEIVED FROM MURRAY HUERTAS. PT SITTING UP IN BED, EATING BREAKFAST. DENIES ANY NEEDS AT THIS TIME. CALL LIGHT WITHIN REACH.
--- NOTE | 2021-04-24 09:20 | NUR ---
STUDENT NURSE IN WITH PT. PT UP TO TOILET. UPON RETURN TO BED, PT STATED THAT WALKING TO THE TOILET AND BACK IS "TOO MUCH". PT DENIES NEEDS AT THIS TIME. CALL LIGHT WITHIN REACH. WILL CONTINUE TO MONITOR.
--- NOTE | 2021-04-24 09:57 | NUR ---
STUDENT NURSE IN WITH PT. PT SITTING UPRIGHT IN BED. MEDICATIONS ADMINISTERED ORDERED. PT DENIES NEEDS AT THIS TIME. CALL LIGHT WITHIN REACH.
--- NOTE | 2021-04-24 10:30 | NUR ---
PHYSICAL THERAPY IN TO SEE PT, PT ASKS IF IT CAN WAIT UNTIL AFTER LUNCH, PHYSICAL THERAPIST STATES SHE WILL COME BACK AFTER LUNCH.
--- NOTE | 2021-04-24 12:16 | NUR ---
STUDENT NURSE IN WITH PT. PT SITTING UPRIGHT IN BED, EATING LUNCH. PT NUTRITION AND ELIMINATION ADDRESSED. PT DENIES NEEDS AT THIS TIME. CALL LIGHT WITHIN REACH.
--- NOTE | 2021-04-24 12:27 | NUR ---
PT ON COMMODE-WILL CHECK BACK
--- NOTE | 2021-04-24 12:45 | NUR ---
PT LYING BACK IN BED, WATCHING TV. DENIES NEEDS, CONT ON 3L/O2 WITH SPO2 96% AND HR 80'S SR.
--- NOTE | 2021-04-24 13:29 | NUR ---
PHYSICAL THERAPY IN TO WORK WITH PATIENT.
--- NOTE | 2021-04-24 13:30 | NUR ---
PT GOT UP AND WALKED WITH PHYSICAL THERAPY. TOLERATED WELL WITH MORE LABORED RESP AFTERWARDS, PT AGREED TO WEAR BIPAP FOR A WHILE.
--- NOTE | 2021-04-24 15:30 | NUR ---
ASSESSMENT DONE, NO CHANGES FROM PREVIOUS ASSESSMENT. PT GOT UP TO BSC TO VOID, BACK TO BED.
--- NOTE | 2021-04-24 16:17 | NUR ---
REPORT RECEIVED FROM ALEKSANDAR FOSTER. AWAITING PTS ARRIVAL TO MED/SURG.
--- NOTE | 2021-04-24 17:08 | NUR ---
PT TRANSFERRED TO MED SURG, REPORT GIVEN TO OSBALDO HUERTAS.
--- NOTE | 2021-04-24 17:20 | NUR ---
PT ARRIVED FROM CCU BY BED. PT DENIES PAIN. PT SHORT OF BREATH BUT IS ABLE TO TALK IN 5-10 WORD SENTENCES. PT REPORTS SHE HAS BEEN "REALLY A BITCH" LATELY REPORTING IRRITABEL MOODS. PT DENIES PAIN AND NAUSEA. PT ORIENTED TO ALL, FORGETFUL AT TIMES. PT REPORTS NORMAL STRENGTH BUT DEBILITATION RELATED TO BREATHING. LUNG SOUDNS DEMISHED THROUGHOUT. PT REMAINS ON 3L O2 BY MA WITH OXGYEN SATURATIONSA JEFF 92%. PT REPORTS "I LOVE TEASING AND TALKING WITH ALL OF YOU BUT I'M JUST NOT FEELING WELL ENOUGH TO DO IT." TELEMETRY MONITORING IN PLACE WITH HEART RATE OF 80-90'S IN NORMAL SINUS RYTHEM. PT HAS GOOD APPITITE FOR DINNER BUT COMPLAINS ABOUT SALT RESTRICTION. NO ADDITIONAL REQUESTS OR COMPLAINTS. CALL LIGHT WITHIN REACH. BED RAILS UP. BED ALARM ON.
--- NOTE | 2021-04-24 17:51 | NUR ---
THIS RN TO ROOM TO CHECK ON PT. PT FINISHING DINNER. PT DENIES PAIN AND NAUSEA. NO ADDITIONAL REQUESTS OR COMPLAINTS. CALL LIGHT WITHIN REACH. BED RAILS UP. BED ALARM ON.
--- NOTE | 2021-04-24 18:06 | NUR ---
PT TRANSFERED FROM CCU THIS SHIFT HERE FOR ACUTE HYPERCAPNIC RESPIRATORY FAILURE. PT UP WITH ONE PERSON ASSIST, DYSPNEA ON EXERTION NOTED. PT TOELRATING 2 GM SODIUM DIET WITH GOOD APPITITE. PT REPORTS FEELING IRRIATABLE. LUNG SOUNDS DEMINISHED, PT REMAINS ON 3L O2 BY ME AND IS ENCORUAGED TO USE BPAP AT NIGHT. RAPID HEART RATE NOTED WITH ACTIVITY THIS SHIFT, NEW MEDICATIONS STARTED. PT VOIDING QUANTITY SUFFICIENT. PT USES CALL LIGHT AND MAKES NEEDS KNOWN.
--- NOTE | 2021-04-24 19:01 | NUR ---
THIS RN TO ROOM TO CHECK ON PT. PT RESTING IN BED, LOOKING AT PICTURES ON PHONE. PT DENIES PAIN AND NAUSEA. NO REQUESTS OR COMPLAINTS AT THIS TIME. CALL LIGHT WITHIN REACH. BED RAILS UP.
--- NOTE | 2021-04-25 06:54 | NUR ---
PT HAD AN UNEVENTFUL NIGHT. APPEARS TO HAVE SLEPT WELL THROUGH THE NIGHT.
--- NOTE | 2021-04-25 07:24 | NUR ---
REPORT RECEIVED FROM ALEKSANDAR PRITCHARD. PT RESTING IN BED, PLAYING ON PHONE. PT DENIES PAIN AND NAUSEA. REPORTS SHE SLEPT WELL AND THAT HER BREATHING IS "BETTER TODAY." PT DENIES ADDITIONAL REQUESTS OR COMPLAINTS. CALL LIGHT WITHIN REACH. BED RAILS UP.
--- NOTE | 2021-04-25 08:52 | NUR ---
MORNING ASSESSMENT AND MEDICATION DUE. PT RESTING IN BED. PT NOW REPROTS THAT HER BREATHING IS "WORSE THAN YESTERDAY." PT STATES "I FEEL LIKE THEY TURNED MY OXYGEN DOWN." OXGYENS SATURATION 96% ON 3L O2 BY NC. AIR MOVEMENT HEARD IN ALL LOBES OF LUNGS ALTHOUGH DEMINISHED AND HALLOW. PT ALERT AND OREINTED. PT OCCATIONALLY FORGETFULT BUT FOLLOWING DIRECTIONS AND INTERACTING WITH CARES. PT REPORTS FEELING UNSTEADY ON FEET AND SHORT OF BREATH WITH ANY ACTIVITY. HEART TONES REGULAR. PT ENCOURAGED TO PLACE BIPAP BACK AFTER BREAFKAST. PT STATES "THAT'S A GOOD IDEA." PT DENIES ADDITIONAL REQUESTS OR COMPLAINTS. CALL LIGHT WITHIN REACH. BED RAILS UP.
--- NOTE | 2021-04-25 09:54 | NUR ---
THIS RN TO ROOM TO CHECK ON PT. PUMP ALARMING, INFUSION AND FLUSH COMPLETE. IV ASSESSED, WNL. NO S/S OF PHELBITIS NOTED. IV FLUIDS AND SALINE LOCKED. PT DENIES PAIN AND NAUSEA BUT REPORTS ONGOING SHORTNESS OF BREATH. PT ENCORUAGED TO PLACE BIPAP BACK. PT AGREES STATING "THAT MIGHT HELP." BIPAP IN PLACE WITH SETTINGS OF 15/4 WITH FIO2 OF 27%. PT WATCHING TV. NO ADDITIONAL REQUESTS OR COMPLAINTS. CALL LIGHT WITHIN REACH. BED RAILS UP.
--- NOTE | 2021-04-25 11:05 | NUR ---
THIS RN TO ROOM TO CHECK ON PT. PT FINISHED WITH PHYSICAL THERAPY AND BEDSIDE COMODE. PT REPORTS SHE FEELS VERY SHORT OF BREATH WITH ALL THE ACTIVITY. PT NOTED TO BE GASPIN FOR AIR AND SPEAKING IN 3-5 WORD SENTENCES. BIPAP PLACED BACK ON PT. PT REPORTS "THAT'S MUCH BETTER." SETTINGS UNCHANGD. OXGYEN SATRUATION 97% ON BIPAP WITH 27% FIO2. PT DENIES ADDITIONAL REQUESTS OR COMPLAINTS. CALL LIGHT WITHIN REACH. BED RAILS UP.
--- NOTE | 2021-04-25 12:36 | NUR ---
THIS RN TO ROOM TO CHECK ON PT. PT REPORTS WEARING THE BIPAP FOR A WHILE "REALLY HELPED. PT NOW TALKING IN 5-10 WORD SENTENCES AND APPEARS MUCH LESS SHORT OF BREATH. PT EATING LUNCH, DOES NOT HAVE HER NC ON AT THIS TIME. PT ENCOURAGED TO WEAR HER NC AT 3L O2 WHILE EATING AND AGREES. PT DENIES PAIN AND NAUSEA. NO ADDITIONAL REQUESTS OR COMPLAINTS. CALL LIGHT WITHIN REACH. BED RAILS UP.
--- NOTE | 2021-04-25 14:28 | NUR ---
PATIENT UP TO BSC AND THEN TO SITTING ON EDGE OF BED, SBA. VITALS AND I&O'S CHARTED. RN IN ROOM. CALL LIGHT IN REACH. NO FURTHER NEEDS AT THIS TIME.
--- NOTE | 2021-04-25 14:42 | NUR ---
AFETERNOON ASSESSMENT AND MEDICATION DUE. THIS RN TO ROOM. PT UP TO RESTROOM WITH STAND BY ASSIST. PT VOIDS AND HAS BOWEL MOVEMENT. PT STATES SHE IS READY TO GO FOR A WALK. PT UP IN BUR[place] WITH STAND BY ASSIST AND NC AT 3L O2 TO AMBULATE IN BURNETT X1 LAP. PT TAKES ONE REST BREAK AT NURSES STATION. HEART RATE INCREASES TO ~90'S WITH AMBULATION. PT BACK TO ROOM. LUNG SOUNDS HALLOW AND DEMINISHED. PT AGREES TO BIPAP USE. BIPAP IN PLACE. HEART TONES REGULAR. PT DENIES PAIN AND NAUSEA. PT FORGETFUL AT TIMES BUT OTHERWISE ORIENTED. PT REPORTS SHE DOES NOT YET FEEL READY TO GO HOME STATING " I DONT' WANT TO END UP BACK HERE IN 2-3 DAYS." PT WATCHING TV. NO ADDITIONAL REQUESTS OR COMPLAINTS. CALL MADHAVI MARTINEZ. BED RAILS UP.
--- NOTE | 2021-04-25 16:36 | NUR ---
THIS RN TO ROOM WITH DR. NYE FOR ROUNDS. PT VERBALIZES UNDERSTANDING OF PLAN OF CARE AND STATES HER QUESTIONS HAVE BEEN ANSWERED. PT DISCUSSES WITH MD BIPAP USE AT HOME AND AGREES THAT SHE WOULD LIKE TO CONTINUE BIPAP USE AT HOME. END OF LIFE CARE REVIEWED BY DR. NYE WITH PT. PT REPORTS SHE WILL THINK MORE ABOUT HER END OF LIFE PLANS AND WISHES. PT DENIES ADDITONAL REQUESTS OR COMPLAINTS AT THIS TIME. PT NOW ON 3L O2 BY NC. PT ABLE TO TELL STORIES WITHOUT STOPPING TO CATCH HER BREATH. BED RAILS UP. CALL LIGHT WITHIN REACH.
--- NOTE | 2021-04-25 17:05 | NUR ---
PT HERE FOR ACUTE HYPERCAPNIC RESPIRATRY FAILURE. PT UPWITH STAND BY ASSIST THIS SHIFT FOR PHYSICAL THERAPY AND TO AMBULATE IN BURNETT. PT TOELRATING 2 GM SODIUM DIET WITH GOOD APPITITE. TELEMETRY MONITORING DC'D. PT REMAINS ON 3L O2 BY NC WHEN EATING OR TALKING AND BIPAP WHEN RESTING WIHT SETTINGS OF 15/4 AND 27% FIO2. PT CONTINUES TO REPORT SHORNESS OF BREATH. MEDICATIONS GIVEN. PT VOIDING QUANTITY SUFFICIENT. PT USES CALL LIGHT AND MAKES NEEDS KNOWN.
--- NOTE | 2021-04-25 18:18 | NUR ---
PT CALL LIGHT ON. PT REQUESTS SOMEONE TO TALK TO. THIS RN TO ROOM. THERAPUTIC COMMUNICATION DONE WITH PT. PT TELLS STORIES AND SHOWS PICTURES FROM HER FAMILY. VITAL SIGNS STABLE. MEDICATION GIVEN. PT REQUESTS HOT CHOCOLATE AND DECAF COFFE, PROVIDED. NO ADDITIONAL REQUESTS OR COMPLAINTS. CALL LIGHT WITHIN REACH.
--- NOTE | 2021-04-25 19:50 | NUR ---
SON VISITING. PT WOULD LIKE TO TAKE A WALK WITH HIM. PORTABLE O2 SET UP WELL WC FOR PT TO USE WHEN SHE FEELS FATIGUED OR UNABLE TO TOLERATE ACTIVITY D/T RESPIRATORY STATUS. PT AMBULATED IN HALLWAY FOR A SHORT DISTANCE AND THEN SON TOOK HER INTO MAIN BURNETT IN WC.
--- NOTE | 2021-04-25 22:53 | NUR ---
PT GIVEN WARM BLANKET AND SANDWICH BOX BY THIS RN
--- NOTE | 2021-04-25 22:59 | NUR ---
WATCHING TV AND EATING SANDWICH AND DRINKING COFFEE. DENIES ANY OTHER NEEDS.
--- NOTE | 2021-04-26 02:15 | NUR ---
IN TO ASSIST PT TO THE BSC, SBA, PT SWITCHED OFF OF BIPAP TO 3LNC, ICE WATER PROVIDED, NO FURTHER NEEDS
--- NOTE | 2021-04-26 05:15 | NUR ---
PT UP TO THE TOILET, BACK TO BED VIA SBA, VSS, I&Os DONE, NO FURTHER NEEDS AT THIS TIME
--- NOTE | 2021-04-26 05:59 | NUR ---
HAS HAD AN UNEVENTFUL NIGHT. AMBULATED WITH SON IN THE HALLWAY. USED BIPAP FOR APPROX 5 HOURS. HAS BEEN VERY SOCIAL AND ENGAGING WITH STAFF WHEN AWAKE. ATE A SNACK AND HAS HAD SEVERAL CUPS OF COFFEE. O2 AT 3 LPM VIA NC. PT HAS NOT APPEARED IN DISTRESS THIS SHIFT
--- NOTE | 2021-04-26 07:28 | NUR ---
REPORT RECEIVED FROM ALEKSANDAR PRITCHARD. PT RESTING IN BED ON RIGHT SIDE WITH EYES CLOSED. RESPIRATIONS EVEN AND UNLABORED. NC IN PLACE AT 3L O2. NO ADDITIONAL NEEDS AT THIS TIME. BED RAILS UP. CALL LIGHT WITHIN REACH.
--- NOTE | 2021-04-26 09:44 | NUR ---
MORNING ASSESSMENT AND MEDICATION DUE. PT SITTING UP IN BED. 3L O2 BY NC IN PLACE WITH OXYGEN SATURATIONS IN THE HIGH 90'S. PT REPORTS HER BREATHING FEELS "A LITTEL BETTER TODAY." PT DENIES PAIN AND NAUSEA. VITAL SIGNS STABLE. MEDICAITONS GIVEN. LUNG SOUNDS CLEAR AND MORE AIR MOVEMENT HEARD TODAY COMPARED WITH YESTERDAY. PT REPORTS OCCATIONAL COUGH. PT ALERT AND ORIENTED, OCCATIONALLY FORGETFUL BUT EASILY REMINDED. PT RECALLS AMBULATING WITH HER SON YESTERDAY WITH [employer] MEM[employer]IES, STATING "I REALLY LIKE SEEING HIM." PT WATCHIGN TV. BECKY CASH PROVIDED. NO ADDITONAL REQUESTS OR COMPLAINTS. CALL LIGHT WITHIN REACH. BED RAILS UP.
--- NOTE | 2021-04-26 10:37 | NUR ---
THIS RN TO ROOM TO CHECK ON PT. PT GETTING UP TO AMBULATE WITH PHYSICAL THERAPY. PT TAKES TIME TO CATCH HER BREATH AT BEDSIDE. PT ABLE TO TALK IN 5-10 WORD SENTENCES. PT CHEERFUL AND TELLING STORIES. PT DENIES PAIN AND NAUSEA. NO ADDITIONAL REQUESTS OR COMPLAINTS AT THIS TIME.
--- NOTE | 2021-04-26 11:26 | NUR ---
PT BACK TO ROOM AFTER WALK. BIPAP PLACED WITH SETTINGS OF 15/4 ADN 27% FIO2. PT DENEIS PAIN AND NASUEA. DYSPNEA ON EXERTION NOTED AFTER AMBULATION. PT DENEIS ADDITIONAL REQEUSTS OR COMPLAINTS STATING "IM JUST GOING TO REST FOR A WHILE." BED RAILS UP. CALL LIGHT WITHIN REACH.
--- NOTE | 2021-04-26 12:21 | NUR ---
THIS RN TO ROOM TO CHECK ONPT. PT SITTING ON EDGE OF BED EATTING LUNCH. PT REPORTS WEARING HER BIPAP "REALLY HELPED." PT DENEIS PAIN AND NAUSEA. NO SHORTNESS OF BREATH NOTED AT THSI TIME. NO ADDITIONAL REQUESTS OR COMPLAINTS. CALL LIGHT WITHIN REACH. BED RAILS UP.
--- NOTE | 2021-04-26 14:57 | NUR ---
AFTERNOON ASSESSMENT DUE. PT CALL LIGHT ON. STAND BY ASSIST UP TO RESTROOM. PT VOIDS WITHOUT ISSUE. PT PERFORMS SELF MAKAYLA CARE. PT ALERT AND ORIENTED, MINORLY FORGETFUL AT TIMES. STAND BY ASSIST BACK TO BED. LUNG SOUNDS CLEAR, HALLOW IN PLACES, PT CONTINUES MOVING MORE AIR THAN YESTERDAY. LOWER LUNG LOBES MORE DEMINISHED THAN THIS MORNING. LOOSE CONGESTED COUGH NOTED WITH CAMPOS SPUTUM. PT NOW ON 2L O2 BY NC WITH OXYGEN SATURATIONS ABOVE 94%. PT ABLE TO TALK IN COMPLETE SENTENCES WITHOUT STOPPING TO CATCH HER BREATH. DR NYE TO BEDSIDE TO DISCUSS PLAN OF CARE WITH PT. PT REPORTS SHE IS NOT READY TO GO HOME TODAY. PLAN FOR SKILLED NURSING OR REHAB CARE DISCUSSED WITH PT. PT DECLINES BECAUSE "THEY WON'T GIVE ME MY CIGARRETTES." PT STATES "ILL DO WHATEVER IS IN MY BEST INSTRESTS TO STAY ALIVE, EVEN IF IT'S FOR ONE MORE WEEK." PT ALSO STATES "I WOULD RATHER THEY MAKE ME COMFOTABLE. GIVE ME THREE OR FOUR DROPS OF MORPHINE AND LET ME GO." PT REPORTS SHE IS "STILL THINKING ABOUT IT" AND IS PLANNING TO TALK WITH TED, UNIT DIRECTOR, ALBERT. PT SITTING ON EDGE OF BED. NO ADDITONAL REQUESTS OR COMPLAINTS. CALL LIGHT WITHIN REACH.
--- NOTE | 2021-04-26 15:59 | NUR ---
PT HERE FOR ACUTE HYPERCAPINIC RESPIRATORY FAILURE. PT UP WITH STAND BY ASSIST TO AMBULATE IN [place] AND TO RESTROOM. PT TOLERATING 2 GM SODIUM DIET WITH GOOD APPTITIE ALTHOUGH FREQUENT COMPLAINTS ABOUT THE FOOD. LUNG SOUNDS CLEAR TO DEMINISHED THIS SHIFT WITH MORE AIR MOVEMENT COMPAIRED TO YESTERDAY. PT WEANE TO 2L O2 BY NC AND USES BIPAP INTERMITTANTLY, SETTINGS OF 15/4 AND 27% FIO2, WHEN NEEDED AND AFTER EXERCISE. PT CONTINUES TALKING WITH DR NYE ABOUT FUTURE WISHES AND PLAN OF CARE. SCHEDULED NEB TREATEMENTS. IV SOLUMEDROL GIVEN. PT VOIDING QUANTITY SUFFICIENT. PT USES CALL LIGHT AND MAKES NEEDS KNOWN.
--- NOTE | 2021-04-26 16:30 | NUR ---
THIS RN TO ROOM TO CHECK WITH PT. THIS RN SPENDS 20 MINUTES VISITING WITH PT. PT ABLE TO TELL LONG STORIES WITHOUT STOPPING TO CATCH HER BREATH. PT DENIES PAIN AND NAUSEA. MENU ORDERED FOR PT SO SHE CAN REQUEST FOODS PER HER PREFERENCE. PT REMAINS ON 2L O2 BY NC. NO ADDITIONAL REQUESTS OR COMPLAINTS. CALL LIGHT WITHIN REACH.
--- NOTE | 2021-04-26 18:09 | NUR ---
THIS RN TO ROOM TO CHECK ON PT. PT FINISHED WITH DINNER REPORTS FOOD WAS GOOD. NO SHORNESS OF BREATH NOTED AT THIS TIME. PT REMAINS ON 2L O2 BY NC. PT DENIES PAIN AND NAUSEA. NO ADDITIONAL REQUESTS OR COMPLAINTS. CALL LIGHT WITHIN REACH. PT TALKING WITH FAMILY ON PHONE.
--- NOTE | 2021-04-26 20:30 | NUR ---
SON IN VISITING. PT UP AND AMBULATED WITH SON.
--- NOTE | 2021-04-26 21:40 | NUR ---
CALL LIGHT ANSWERED. pt HOOKED IV ON ROBE. IV SITE ASSESSED, FLUSHED WNL, GOOD BLOOD RETURN. IV REDRESSED, SL. pt BACK IN BED FROM WHEELCHAIR RIDE WITH FAMILY IN HALLWAY. OXYGEN BY MS IN PLACE. pt PROVIDED WITH HOT CHOCOLATE, ICE WATER. CALL LIGHT IN REACH. NO ADDITIONAL REQUESTS. pt CONVERSING REGARDING HOSPICE DECISION, FAMILY. RN AT BEDSIDE FOR THERAPEUTIC COMMUNICATION.
--- NOTE | 2021-04-26 22:00 | NUR ---
PT IN BED, ALERT AND WATCHING TV. VS TAKEN. PT STATES THAT IT HAS BEEN AN EMOTIONAL DAY. TALKED WITH PT. DENIES ANY CURRENT NEEDS.
--- NOTE | 2021-04-26 22:54 | NUR ---
ANSWERED CALL LIGHT. NEW PULL UP PROVIDED. NO OTHER NEEDS AT THIS TIME.
--- NOTE | 2021-04-26 23:10 | NUR ---
REQUESTS A SANDWICH. ATE THE ENTIRE SANDWICH AND DRANK SOME HOT CHOCOLATE.
--- NOTE | 2021-04-27 02:52 | NUR ---
Pt asleep with HOB elevated. Is on O2 via NC at this time.
--- NOTE | 2021-04-27 04:07 | NUR ---
PT AWOKE AND STATES SHE FEELS NAUSEAOUS. HAS NOT USED BIPAP THIS SHIFT. ZOFRAN GIVEN. RT TX DUE. LET RT KNOW THAT PT WAS AWAKE AND READY FOR TX AND THEN BIAPAP. DENIES ANY OTHER NEEDS.
--- NOTE | 2021-04-27 05:43 | NUR ---
AMBULATED IN HALLWAY AT THE BEGINNING OF SHIFT. ATE A SANDWICH AT APPROX 2330 AND THEN FELL ASLEEP. WOKE UP CLOSE TO 0400 AND FELT NAUSEAOUS. ZOFRAN GIVEN. ENCOURAGED PT TO USE BIPAP. PT GIVEN ROUTINE RT TX AND THEN PLACED ON BIPAP. APPEARS TO HAVE FALLEN ASLEEP QUICKLY AFTER WITH HOB ELEVATED
--- NOTE | 2021-04-27 07:31 | NUR ---
Shift report completed, bedside deferred. Patient is sleeping at this time appearing to be in no acute distress.
--- NOTE | 2021-04-27 08:05 | NUR ---
Patient up to the restroom, stand by assist only. Changed her from BIPAP to nasal canula at 3L. Sitting at the edge of bed at this time.
--- NOTE | 2021-04-27 09:56 | NUR ---
Patient up to the bathroom.
--- NOTE | 2021-04-27 10:01 | NUR ---
Patient was given her AM medications, patient continues to have no new compliants. Spent one-to-one time with the patient. She reminisced about the past
--- NOTE | 2021-04-27 10:09 | NUR ---
PT AWAKE IN BED PLAYING ON PHONE. CALL LIGHT IN REACH. NO FURTHER NEEDS AT THIS TIME.
--- NOTE | 2021-04-27 10:28 | NUR ---
PT SITTING IN BED, O2 NC IN USE. PT IS PLEASANT, INFORMED ME THAT SHE IS FEELING OK. PT THEN INFORMED ME THAT HER AND DR NYE CAME TO THE DECISION TO PLACE PT ON HOSPICE WHEN PT IS DC'D. SHE FEELS AT [place], FEELS HER KIDS UNDERSTAND. SHE FEELS SHE IS A BURDEN-TO THEM WELL HER SELF AND IS JUST TIRED OF FIGHTING. GAVE PT END OF LIFE DECISION GUIDE, AND WILL RETURN TO VISIT MORE. PT NEEDED TO USE BR, WILL FOLLOW
--- NOTE | 2021-04-27 11:45 | NUR ---
Dr. Lemus and I notified in 830 report pt plans on going home on Hospice and I have an appt with her to make this happen. Updated staff I know nothing about this. Dr. Lemus is also not aware of Hospice. We discussed pt would need to have CGs in the home for Hospice to admit her. I will speak with her. Spoke with Cielo and she states she has decided to go home with Hospice. Also states per Dr. Lemus she can return to the hospital and be treated on comfort care if she has another episode. Discussed with Cielo she will need to have cg in her home 24 -7 for Hospice to admit her. She also will no longer return to the hospital if she goes on Hospice. She believe's Dr. Lemus told her this, we then discussed Im sure this was not said. Cielo states her mind has been terrible after each episode of hypoxia. We discussed having 1)family stay with her, she declines, 2. Hiring CG, 3. Placement to a SNF she declines, or 4. placement to an assisted living. She does not like any of these options. She would like me to call her son. Called Augusto and updated. He had the same conversation with Cielo that she could not return to the hospital on Hospice. He and his sister will try to visit later this afternoon for a meeting. Spoke with Dr. Lemus later, he will attend meeting if he is able. visit later this afternoon for a meeting.
--- NOTE | 2021-04-27 13:10 | NUR ---
Patient sitting up in bed watching TV with no compliants at this time.
--- NOTE | 2021-04-27 13:39 | NUR ---
PT AWAKE IN ROOM SITTING ON EDGE OF BED. CALL LIGHT WITHIN REACH. NO FURTHER NEEDS AT THIS TIME.
--- NOTE | 2021-04-27 14:35 | NUR ---
Patient continues to wear 3l oxygen, has needed her BiPAP during this shift. She continues to be uncertain what she needs to do for the next steps in her life. She is to be meeting with her family and the case management later today. She is sitting up in the bed with HOB >30 degrees
--- NOTE | 2021-04-27 15:40 | NUR ---
Family at bedside at this time.
--- NOTE | 2021-04-27 16:00 | NUR ---
Met with pt and her children, Linda and Augusto. Dr. Lemus is off the floor. Reviewed options of Hospice, SNF, home with cg. Pt opposed to all. Wants hospice but will not agree to cg in the home. Also wants to return to the hospital. Pt declines SNF. Daughter would like pt to go to a SNF, but son states pt had several ER visits and one transfer to [facility] when she was in [facility]. We discussed POLST and POA. Pt does state she would sign legal papers they have at home. NOtified family if they need the notary, they must make an appt. Pt and family want pt to cont. to recieve BIPAP if the ambulance is called. No decision were made, Dr. Lemus updated. Pt wanting to remain at the hospital. Discussed this cannot happen.
--- NOTE | 2021-04-27 18:55 | NUR ---
patient ambulating in her room, to talk with a passing MD. she has new compliant just says she hopes to go home [place]. and that she is feeling a little better.
--- NOTE | 2021-04-27 18:59 | NUR ---
PATIENT SITTING UP IN BED AT THIS TIME. VITALS AND I&O'S CHARTED. CALL LIGHT IN REACH. NO FURTHER NEEDS AT THIS TIME.
--- NOTE | 2021-04-27 19:47 | NUR ---
REPORT RECEIVED FROM DAY SHIFT RN. PT LYING IN BED ALERT AND ORIENTED. DENIES NEEDS. WHITE BOARD UPDATED. CALL LIGHT IN REACH.
--- NOTE | 2021-04-27 22:30 | NUR ---
EVENING ASSESSMENT COMPLETE. SCHEDULED MEDS ADMINISTERED PER EMAR. PT DENIES PAIN OR NAUSEA. DENIES CHEST PAIN OR SOB. 3L/NC IN PLACE. SpO2 99%. HR 70'S. UP TO BR TO VOID. GAIT STEADY. BACK TO BED, TANIA WELL. INCREASED RR WITH ACTIVITY. WARM BLANKET PROVIDED. PT DENIES QUESTIONS OR CONCERNS. BIPAP ON AT THIS TIME. CALL LIGHT IN REACH.
--- NOTE | 2021-04-27 23:28 | NUR ---
CALL LIGHT ANSWERED. BIPAP ALARMING. ASSISTED PT TO REPOSITION FACE MASK. ISSUE RESOLVED.
--- NOTE | 2021-04-28 02:17 | NUR ---
PT RESTING IN BED ON LEFT SIDE. EYES CLOSED. BIPAP IN PLACE. CALL LIGHT IN REACH.
--- NOTE | 2021-04-28 03:58 | NUR ---
PT SITTING UP IN BED FOR BREATHING TX. DECAF COFFEE PROVIDED. BIPAP OFF AT THIS TIME. 3L/NC PLACED. ASSESSMENT COMPLETE. NO NEEDS AT THIS TIME. CALL LIGHT IN REACH.
--- NOTE | 2021-04-28 05:24 | NUR ---
VS AND I&O COMPLETE. FRESH WATER PROVIDED. PT SITTING AWAKE IN BED. DENIES SOB OR CHEST PAIN. 3L/NC IN PLACE. NO NEEDS AT THIS TIME. CALL LIGHT IN REACH.
--- NOTE | 2021-04-28 07:10 | NUR ---
REPORT RECEIVED FORM ALEKSANDAR CASTANEDA. PT SITTING UP ON EDGE OF BED, 3L O2 IN PLACE. PT DENIES PAIN AND NAUSEA. PT REPORTS SHE HAS BEEN THINKING ABOUT HER PLAN OF CARE AND STATES SHE WOULD LIKE TO GO HOME TODAY. PT DENIES ADDITIONAL REQUESTS OR COMPLAINTS AT THIS TIME. CALL LIGHT WITHIN REACH. BED RAILS UP.
--- NOTE | 2021-04-28 09:09 | NUR ---
MORNING ASSESSMENT AND MEDICATION DUE. THIS RN TO ROOM. PT SITTING UP IN BED, EATING BREAKFAST, PTS SPECIAL FOOD REQUESTS ACCOMIDATED. PT DENIES PAIN AND NAUSEA. PT TALKS ABOUT CARE MEETING LAST NIGHT STATING "IF I END UP BACK HERE I JUST WANT TO BE MADE COMFORTABLE, JUST A LITTLE MORPHINE AND LET ME GO." PT REPORTS SHE IS READY TO GO HOME TODAY. PT ALERT AND ORIENTEDT TO ALL, ABLE TO REPEAT BACK CONVERSATIONS FROM YESTERDAY. LUNG SOUNDS CLEAR ATHOUGH HALLOW WITH MODERATE AIR MVOEMENT. DYSPNEA ON EXERTION CONTINUES. PT UNSTEADY ON FEET AT TIMES RELATED TO TRYING TO CATCH HER BREATH. PT REMAINS ON 3L O2 BY CA WITH OXGYEN SATURATION OF 100%. DRY COUGH NOTED AT THIS TIME, NO SPUTUM NOTED. no additional requests or complaints. CALL LIGHT WITHIN REACH. BED RAILS UP.
--- NOTE | 2021-04-28 10:10 | NUR ---
THIS RN TO ROOM TO CHECK ON PT. PT RESTING IN BED WITH HEAD OF BED ELEVATED TO 40 DEGREES. PT DENIES PAIN AND NAUSEA. PLAN OF CARE REVIEWED WITH PT. PT DENIES ADDITIONAL REQUESTS OR COMPLAINTS. CALL LIGHT WITHIN REACH. BED RAILS UP. CALL LIGHT WITHIN REACH.
--- NOTE | 2021-04-28 11:22 | NUR ---
THIS RN TO ROOM WITH DR. NYE FOR ROUNDS. PT CONTINUES TO GO BACK AND FORTH WITH HER FUTURE WISHES. PT REPORTS SHE WILL CONTINUES THINKING ABOUT HER WISHES FOR FUTURE CARES. THERAPUTIC COMMUNICATION DONE WITH PT. THIS RN STAYS WITH PT FOR COMFROT. PT DENIES ADDITIONAL REQUSTS OR COMPLAINTS AND STATES "I'M JUST GOING TO REST FOR A WHILE." CALL LIGHT WITHIN REACH. BED RAILS UP.
[2021-04-28] MEDS ORDERED: PREDNISONE10 MG PO (11:33)
--- NOTE | 2021-04-28 12:30 | NUR ---
THIS RN TO ROOM TO CHECK ON PT. PT UP IN ROOM PACKING UP HER BELONGINGS. PT REPORTS SHE IS READY TO GO HOME. PHARMACY TO BEDSIDE TO REVIEW MEDICATIONS WITH PT. PT VERBALIZES UNDERSTANDING AND STATES HER QUESTIONS HAVE BEEN ANSWERED. DISCHARGE INSTRUCTIONS REVIEWED WITH PT. PT VERBALIZES UNDERSTANDING OF INSTRUCTIONS, MEDICATIONS, AND FOLLOW UP. PT REPORTS HER SON WILL ARRIVE AT~1530 AND SHE IS PLANNING TO LEAVE AT THAT TIME. IV DC'D PER PROTOCOL, AJAY AND FATOU APPLIED. PT DENIES ADDITIONAL REQUESTS OR COMPLAINTS. CALL LIGHT WITHIN REACH. BED RAILS UP.
--- NOTE | 2021-04-28 12:41 | NUR ---
PT RECEIVING B.TREATMENT FROM RT JAMES. WILL CHECK BACK
--- NOTE | 2021-04-28 13:57 | NUR ---
Spoke with Cielo. She plans on dc today. Worries frequently what will happen, but cannot make decision for change. Denies needs. Again encouraged to get a cg at least a few hours per day as family cannot be home. She will consider, does not like the idea of people in her home. We told each other goodbye. Faxed RX H&P, dc summary, 02 qualifier to [facility] for update. Faxed H&P, DC summary, and referral to [facility] to resume HH.
--- NOTE | 2021-04-28 13:59 | NUR ---
PATIENT HAD ONE UNMEASURED VOID. SHE STATES "I DID NOT KNOW YOU NEEDED TO MEASURE MY PEE." PT AWARE TO USE HAT SO URINE IS TRACKED.
--- NOTE | 2021-04-28 15:05 | NUR ---
THIS RN TO ROOM TO CHECK ON PT. AFTERNOON ASSESSMENT DUE. PT UP TO RESTROOM WITH 1 PERSON ASSIST. PT REPORTS DIZZINESS, LIGHT HEADEDNESS AND SHORNESS OF BREATH. PT BACK TO BED. PT DENIES PAIN AND NAUSEA. PT ENCOURAGED TO WEAR HER BIPAP. PT AGREES. PT AT 98% ON 3L O2 BY NC. BIPAP PLACED WITH 14/5 SETTINGS AND 27% FIO2. PT REPORTS BIPAP "HELPS." OXYGEN SATURATIOS ABOVE 94% WITH HEART RATE OF 83. LUNG SOUNDS CLEAR BUT HALLOW. PT COUGHS UP SMALL AMOUNTS OF CAMPOS PHELM. RT CALLED FOR BREATHING TREATMENT, TO BEDSIDE, BREATHING TX. GIVEN. NO ADDITIONAL REQUESTS OR COMPLAINTS AT THIS TIME. CALL LIGHT WITHIN REACH. BED RAILS UP.
--- NOTE | 2021-04-28 16:15 | NUR ---
THIS RN TO ROOM TO CHECK ON PT. RESTING IN PLACE WITH BIPAP IN PLACE. PT REPORTS SHORTNESS OF BREATH IS NOT IMPROVING. PT ENCORUAGED TO CONTINUE WITH BIPAP ON. JAMES, RT, TO BEDSIDE TO CHECK ON PT, BIPAP AND SETTINGS. JAMES CONFIRMS PT IS DRAWING GOOD AMOUNTS OF AIR IN AND OUT. PT UP TO RESTROOM ON 3L O2 BY NC. PT REPORTS DYSPNEA ON EXERTION WITH AMBULATION UP TO RESTROOM. PT BACK TO BED AND BIPAP BACK ON. PT DENIES ADDIITONAL REQUESTS OR COMPLAINTS. CALL LIGHT WITHIN REACH. BED RAILS UP.
--- NOTE | 2021-04-28 16:58 | NUR ---
PTS SON CIARAN ARRIVED. THIS RN TO ROOM. PT CONTINUES TO BE SHORT OF BREATH AND REPORTS DIZZINESS. PT CONFUSED ABOUT EVENTS OF THE DAY. DR. NYE UPDATED. NEW ORDERS PLACED. DR. NYE STATES TO HOLD IV PLACEMENT PENDING ABG RESULTS. PT AND SON DISCUSSING PLAN OF CARE WITH MD. VITALS SIGNS STABLE. RAUL TO BEDSIDE FOR ABG DRAW. PTS SON AT BEDSIDE. LABS SENT. AWAITING RESULTS. NO ADDITIONAL REQUESTS OR COMPLAINTS. CALL LIGHT WITHIN REACH. BED RAILS UP.
--- NOTE | 2021-04-28 17:53 | NUR ---
DR NYE STATES ABG WNL FOR PT AND THAT PT CAN DISCHARGE IF SHE IS ABLE TO TOLERATE HER NC AT 3L AT THIS TIME. PT UPDATED BY DR NYE. PT TRANSITIONED TO NC AT 3L AND IS EATING DINNER WHILE TALKING WITH HER SON. PT ABLE TO TALK IN 5-10 WORD SENTENCES WILE DISCUSSING TOPICS WITH HER SON. PT REPORTS SHE "WAS JUST FEELING ANXIOUS" ABOUT GOING HOME. CALL LIGHT WITHIN REACH. BED RAILS UP.
--- NOTE | 2021-04-28 18:15 | NUR ---
PT FINISHED WITH DINNER AND STATES SHE IS READY FOR DISCHARGE. PT CALL LIGHT ON. PT UP TO AMBULATE IN [place] ON 3L O2 BY NC. PT ABLE TO WALK TO NURSES STATION WHILE TALKING AND TELLING STORIES. PT REPORTS SHE FEELS BACK TO BASELINE AND WAS "SCARED TO GO HOME." PT ALSO STATES "I'M FEELING BETTER NOW AND READY TO GO." DISCHARGE INSTRUCTIONS REVEIWED AGAIN WITH PTS SON AND PT. NO ADDITIONAL QUESTIONS. PT WHEELED FROM MED/SURG TO MEET SON AT CAR. NO ADDITIONAL REQUESTS OR CONCERNS.
== END 2021-04-28 18:15 | disposition home or self-care (01) | DRG 291 ==
LOC: ED 19:45 → CCU 21:04 → MS 04-24 17:15
PROVIDERS: ADMIT Internal Medicine; ATTEND Internal Medicine
PROC: 5A09557 Assistance with Respiratory Ventilation, Greater than 96 Consecutive Hours, Continuous Positive Airway Pressure (ICD-10-PCS; principal; 2021-04-21)
DX: I11.0 Hypertensive heart disease with heart failure (principal); J96.21 Acute and chronic respiratory failure with hypoxia; J96.22 Acute and chronic respiratory failure with hypercapnia; I50.23 Acute on chronic systolic (congestive) heart failure; Z20.822 Contact with and (suspected) exposure to COVID-19; Z66 Do not resuscitate; I48.0 Paroxysmal atrial fibrillation; J43.9 Emphysema, unspecified; Z87.891 Personal history of nicotine dependence; Z88.2 Allergy status to sulfonamides; Z88.1 Allergy status to other antibiotic agents; Z88.5 Allergy status to narcotic agent; Z79.899 Other long term (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 therapy
CPT/HCPCS: 36415; 36600; 51702; 71045; 80048; 80053; 80162; 81001; 82803; 83605; 83735; 83880; 84484; 85025; 87040; 87088; 93005; 93010; 94640; 94660; 94760; 94761; 97110; 97116; 97161; 99285-25; C9113; C9803; J0696; J1160; J1650; J1940; J2270; J2405; J2920; J7512; U0003